=== PATIENT | male | born 1985 | race American Indian/Alaskan Native ===

== ENCOUNTER 2018-09-11 17:40 | Inpatient (IN) | payer BC ==
[2018-09-11] MEDS ORDERED: NACL 0.9% 1000 ML IV ONE (18:06)
[2018-09-11] MEDS ORDERED: ZOSYN/NS 3.375GM/50ML 3.375 GM/50 ML BAG IV ONE (18:07)
[2018-09-11] MEDS ORDERED: NACL 0.9% 1000 ML 2,000 ML ONE (18:08)
[2018-09-11] MEDS ORDERED: ZOFRAN IV ONE (18:08)
--- NOTE | 2018-09-11 18:11 | Emergency Department Report ---
ED General Adult HPI - General Chief complaint: Nausea/Vomiting/Diarrhea Stated complaint: FLU LIKE Time Seen by Provider: 09/11/18 18:01 Source: patient Mode of arrival: Wheelchair Limitations: No Limitations - History of Present Illness Initial comments: Patient is 33 years old male with no significant past medical history. Patient presented to the ER complaining of a five-day history of nausea, vomiting and watery diarrhea. Patient found to have a blood pressure of 84/54 in triage with a heart rate of 136. Sepsis protocol initiated. Patient stated that he has been having cough, nonproductive. Patient denied any abdominal pain or fever. - Related Data Allergies Allergy/AdvReac Type Severity Reaction Status Date / Time No Known Allergies Allergy Unverified 09/11/18 17:50 ED Review of Systems ROS: Stated complaint: FLU LIKE Other details as noted in HPI Comment: All other systems reviewed and negative Constitutional: denies: chills, fever Respiratory: cough. denies: orthopnea, shortness of breath, SOB with exertion, SOB at rest Cardiovascular: palpitations. denies: chest pain, dyspnea on exertion, orthopnea Gastrointestinal: nausea, vomiting, diarrhea. denies: abdominal pain, constipation, hematemesis, melena, hematochezia Musculoskeletal: denies: back pain Neurological: weakness (generalized). denies: headache, numbness, paresthesias, confusion, abnormal gait, vertigo ED Past Medical Hx - Past Medical History Previous Medical History?: No - Surgical History Past Surgical History?: No - Social History Smoking Status: Never Smoker Substance Use Type: None ED Physical Exam - General Limitations: No Limitations General appearance: alert, in no apparent distress - Head Head exam: Present: atraumatic, normocephalic, normal inspection - Eye Eye exam: Present: normal appearance - ENT ENT exam: Present: mucous membranes dry - Neck Neck exam: Present: normal inspection, full ROM. Absent: tenderness, meningismus, lymphadenopathy, thyromegaly - Respiratory Respiratory exam: Present: normal lung sounds bilaterally. Absent: respiratory distress, wheezes, rales, rhonchi, stridor, chest wall tenderness, accessory muscle use, decreased breath sounds, prolonged expiratory - Cardiovascular Cardiovascular Exam: Present: tachycardia - GI/Abdominal GI/Abdominal exam: Present: soft, normal bowel sounds. Absent: distended, ten derness, guarding, rebound, rigid, diminished bowel sounds, organomegaly, mass, bruit, pulsatile mass, hernia - Extremities Exam Extremities exam: Present: normal inspection, full ROM, normal capillary refill. Absent: pedal edema, calf tenderness - Back Exam Back exam: Present: normal inspection, full ROM. Absent: tenderness, CVA tenderness (R), CVA tenderness (L), muscle spasm, paraspinal tenderness, vertebral tenderness - Neurological Exam Neurological exam: Present: alert, oriented X3, CN II-XII intact, normal gait, reflexes normal - Skin Skin exam: Present: warm, intact, normal color ED Course Vital Signs 09/11/18 09/11/18 09/11/18 17:47 18:30 19:00 Temperature 98.5 F Pulse Rate 136 H 126 H 120 H Respiratory 18 30 H Rate Blood Pressure 89/54 110/53 100/57 O2 Sat by Pulse 99 96 94 Oximetry 09/11/18 19:03 Temperature Pulse Rate Respiratory 16 Rate Blood Pressure O2 Sat by Pulse Oximetry ED Medical Decision Making - Lab Data Result diagrams: 09/11/18 18:00 09/11/18 18:00 - Medical Decision Making Patient is 33 years old male with no significant past medical history. Patient presented to the ER complaining of a five-day history of nausea, vomiting and watery diarrhea. Patient found to have a blood pressure of 84/54 in triage with a heart rate of 136. Sepsis protocol initiated. Patient stated that he has been having cough, nonproductive. Patient denied any abdominal pain or fever. Patient received normal saline, Zosyn, Zofran. Patient found to have a white blood cells also 1.9 and a lactic acid of 2.6. I discussed the patient is Dr. Oconnell, he agreed to admit the patient to medical service. Critical Care Time: Yes Critical care time in (mins) excluding proc time.: 30 Critical care attestation.: If time is entered above; I have spent that time in minutes in the direct care of this critically ill patient, excluding procedure time. ED Disposition Clinical Impression: Sepsis, Dehydration, Nausea vomiting and diarrhea, Leukopenia Disposition: OP ADMIT IP TO THIS HOSP Is pt being admited?: Yes Condition: Stable
[2018-09-11 18:25] LABS: Hematocrit 41.2 % (35.5-45.6); Hemoglobin 13.6 gm/dl (11.8-15.2); Mean Corpuscular HGB Conc 33 % (32-34); Mean Corpuscular Volume 86 fl (84-94); Platelet Count 130 K/mm3 (140-440); Red Blood Count 4.79 M/mm3 (3.65-5.03); Red Cell Distribution Width 13.4 % (13.2-15.2)
[2018-09-11 18:41] LABS: Alanine Aminotransferase 115 units/L (7-56); BUN/Creatinine Ratio 23; Blood Urea Nitrogen 21 mg/dL (9-20); Calcium 8.1 mg/dL (8.4-10.2); Hemolysis Index 30
--- NOTE | 2018-09-11 19:02 | History and Physical Report ---
History of Present Illness Chief complaint: I feel sick, I keep throwing up History of present illness: 33 YO Male with no PMH present to ED for evaluation. Pt states that he has experienced nausea, multiple episodes of vomiting, and multiple episodes of loose stools over the past 5 days with persistent symptoms over the same time frame. Pt acknowledges nearly 100lbs weight loss over the past 6 months. Pt transported to [facility] by his family for further care and evaluation. Pt seen and evaluated in ED and found to have Sepsis with a blood pressure of 84/54, Acidosis, and intractible nausea and vomiting. Pt admitted to Medical floor and initiated on sepsis protocol. Pt denies fever, chills, CP, Palpitations, Trauma, BRBPR, Headache, vision changes, skin rash, or recent known ill contacts. Past History Past Medical History: No medical history, other (reviewed) Past Surgical History: No surgical history, Other (reviewed) Social history: single, lives with family. denies: smoking, alcohol abuse, prescription drug abuse Family history: no significant family history (reviewed) Medications and Allergies Allergies Allergy/AdvReac Type Severity Reaction Status Date / Time No Known Allergies Allergy Unverified 09/11/18 17:50 Review of Systems Constitutional: weight loss, anorexia, no weight gain, no fever, no chills Ears, nose, mouth and throat: no ear pain, no ear discharge, no tinnitis, no decreased hearing, no nose pain Cardiovascular: no chest pain, no orthopnea, no palpitations, no rapid/irregular heart beat, no edema Respiratory: cough, no cough with sputum, no excessive sputum Gastrointestinal: nausea, vomiting, diarrhea, no constipation, no change in bowel habits, no BRBPR, no melena, no hematochezia Genitourinary Male: no hematuria, no flank pain, no discharge, no urinary frequency, no urinary hesitancy Rectal: no pain, no incontinence, no bleeding Musculoskeletal: no neck stiffness, no neck pain, no shooting arm pain, no arm numbness/tingling, no low back pain Integumentary: no rash, no pruritis, no redness, no sores, no wounds Neurological: no transient paralysis, no paralysis, no weakness, no parathesias, no numbness, no tingling Psychiatric: no anxiety, no memory loss, no change in sleep habits, no sleep disturbances, no insomnia, no hypersomnia Endocrine: no cold intolerance, no heat intolerance, no excessive thirst, no polydipsia, no polyuria, no nocturia Hematologic/Lymphatic: no easy bruising, no lymphadenopathy, no lymphedema Allergic/Immunologic: no urticaria, no allergic rhinitis, no wheezing, no persistent infections, no anaphylaxis, no angioedema Exam - Constitutional Vitals: Temp Pulse Resp BP Pulse Ox 98.5 F 120 H 30 H 100/57 94 09/11/18 17:47 09/11/18 19:00 09/11/18 19:00 09/11/18 19:00 09/11/18 19:00 General appearance: Present: mild distress, cachectic, disheveled - EENT Eyes: Present: PERRL ENT: hearing intact, clear oral mucosa - Neck Neck: Present: supple, normal ROM - Respiratory Respiratory effort: normal Respiratory: bilateral: CTA - Cardiovascular Heart Sounds: Present: S1 & S2. Absent: rub, click - Extremities Extremities: pulses symmetrical, No edema Peripheral Pulses: abnormal (capillary refill greater than 3.5 seconds) - Abdominal General gastrointestinal: Present: soft, non-tender, non-distended, normal bowel sounds Male genitourinary: Present: normal - Integumentary Integumentary: Present: clear, warm, dry - Musculoskeletal Musculoskeletal: gait normal, strength equal bilaterally - Psychiatric Psychiatric: appropriate mood/affect, intact judgment & insight - Neurologic Neurologic: CNII-XII intact, moves all extremities Results - Labs CBC & Chem 7: 09/11/18 18:00 09/11/18 18:00 Labs: Abnormal lab results 09/11/18 09/11/18 09/11/18 Range/Units 18:00 18:00 18:00 WBC 1.9 L* (4.5-11.0) K/mm3 Plt Count 130 L (140-440) K/mm3 Sodium 131 L (137-145) mmol/L Carbon Dioxide 17 L (22-30) mmol/L BUN 21 H (9-20) mg/dL Glucose 126 H (75-100) mg/dL Lactic Acid 2.60 H* (0.7-2.0) mmol/L Calcium 8.1 L (8.4-10.2) mg/dL AST 123 H (5-40) units/L ALT 115 H (7-56) units/L Albumin 3.0 L (3.9-5) g/dL Assessment and Plan - Patient Problems (1) Sepsis Status: Acute Qualifiers: Sepsis type: sepsis due to unspecified organism Qualified Code(s): A41.9 - Sepsis, unspecified organism Plan to address problem: Sepsis Protocol: IV antibiotic therapy, IVF resuscitation therapy, CBC, CMP, chest x ray, CT Abdomen pelvis, stool studies, Rapid HIV, serial lactic acid, monitor uop q shift, neutropenic precautions. (2) Acidosis Status: Acute Plan to address problem: IVF resuscitation therapy, IV bicarbonate, serial lactic acid level. (3) Nausea vomiting and diarrhea Status: Acute Plan to address problem: Antiemetic therpay, IVF resuscitation therapy, supportive care. (4) DVT prophylaxis Status: Acute Plan to address problem: SCD to BLE while in bed.
--- NOTE | 2018-09-11 19:09 | XRay Report ---
FINAL REPORT PROCEDURE: Chest. TECHNIQUE: Portable AP view. HISTORY: Sepsis. COMPARISON: No prior studies are available for comparison. FINDINGS: The heart and mediastinum appear normal. The left lung is clear and well expanded. There may be some faint opacity in the right upper lobe. This could represent early pneumonia. Follow-up imaging is sug gested. There are no pleural effusions. The soft tissues and regional skeleton are unremarkable. IMPRESSION: Question early right upper lobe pneumonia.
[2018-09-11 19:30] LABS: Band Neutrophils # (Manual) 0.1 K/mm3; Basophils % (Manual) 0 % (0.0-1.8); Total Cells Counted 100
[2018-09-11] MEDS ORDERED: ZOFRAN IV PRN (19:30)
[2018-09-11 19:35] LABS: Ovalocytes 1+; Platelet Estimate Consistent w Auto
[2018-09-11 20:08] LABS: Bilirubin,Urine NEG (Negative); Blood,Urine SM (Negative); Color,Urine Amber (Yellow); Mucus,Urine FEW /HPF; Protein,Urine <15 mg/dL mg/dL (Negative); Urobilinogen,Urine < 2.0 mg/dL (<2.0)
[2018-09-11] MEDS: SODIUM CHLORIDE FLUSH SYRINGE 10 ML IV SCH (23:26)
[2018-09-11] MEDS: TYLENOL PO PRN (23:26)
[2018-09-11] MEDS: FLAGYL 500 MG/100 ML 500 MG/100 ML BAG IV SCH (23:26)
[2018-09-11] MEDS: ZOSYN/NS 4.5GM/100ML 4.5 GM/100 ML VIAL IV SCH (23:31)
--- NOTE | 2018-09-12 01:50 | Cat Scan Report ---
FINAL REPORT EXAM: CT HEAD/BRAIN WO CON HISTORY: AMS fever TECHNIQUE: CT was performed from the foramen magnum through the vertex in the axial plane without th e use of intravenous contrast. PRIORS: None. FINDINGS: The roger/white matter attenuation pattern is normal. There is no mass lesion or mass effect. There ar e no abnormal extra-axial fluid collections. There is no evidence of acute intracranial hemorrhage or infarct. The ventricles are of normal size and configuration. The skull and orbits are unremarkable . There is mucosal thickening in the bilateral sphenoid sinuses. IMPRESSION: Normal CT of the head. Chronic sphenoid sinus disease
[2018-09-12] MEDS: TYLENOL PO PRN (03:57)
[2018-09-12] MEDS: ZOSYN/NS 4.5GM/100ML 4.5 GM/100 ML VIAL IV SCH ×3 (05:30→23:18)
[2018-09-12] MEDS: FLAGYL 500 MG/100 ML 500 MG/100 ML BAG IV SCH ×3 (06:10→23:21)
--- NOTE | 2018-09-12 09:33 | Progress Note ---
Assessment and Plan Assessment and plan: Sepsis. Present on admission. Patient is criteria given the leukopenia, tachycardia and diagnosis of gastroenteritis. Follow-up blood and stool studies. Continue IV antibiotics. Gastroenteritis. Follow-up stool studies and CT scan of the abdomen and pelvis--check for colitis. Continue Zosyn and Flagyl. Leukopenia. Consider hematology consultation. Diarrhea. Stool studies for WBC, culture and C. difficile History Interval history: No new issues overnight. Hospitalist Physical - Constitutional Vitals: Temp Pulse Resp BP Pulse Ox 98.6 F 111 H 18 96/36 100 09/12/18 06:12 09/12/18 06:12 09/12/18 06:12 09/12/18 06:12 09/12/18 08:30 General appearance: Present: no acute distress, cachectic, disheveled - EENT Eyes: Present: PERRL, EOM intact ENT: hearing intact, clear oral mucosa, dentition normal - Neck Neck: Present: supple, normal ROM - Respiratory Respiratory effort: normal Respiratory: bilateral: CTA - Cardiovascular Rhythm: regular Heart Sounds: Present: S1 & S2. Absent: gallop, rub - Extremities Extremities: no ischemia, No edema, Full ROM - Abdominal General gastrointestinal: soft, non-tender, non-distended, normal bowel sounds - Integumentary Integumentary: Present: clear, warm, dry - Neurologic Neurologic: CNII-XII intact, moves all extremities Results - Labs CBC & Chem 7: 09/11/18 18:00 09/11/18 18:00 Labs: Laboratory Last Values WBC 1.9 K/mm3 (4.5-11.0) L* 09/11/18 18:00 RBC 4.79 M/mm3 (3.65-5.03) 09/11/18 18:00 Hgb 13.6 gm/dl (11.8-15.2) 09/11/18 18:00 Hct 41.2 % (35.5-45.6) 09/11/18 18:00 MCV 86 fl (84-94) 09/11/18 18:00 MCH 28 pg (28-32) 09/11/18 18:00 MCHC 33 % (32-34) 09/11/18 18:00 RDW 13.4 % (13.2-15.2) 09/11/18 18:00 Plt Count 130 K/mm3 (140-440) L 09/11/18 18:00 [place] % (Auto) Nanoelectronics Engineer 09/11/18 18:00 Add Manual Diff Complete 09/11/18 18:00 Total Counted 100 09/11/18 18:00 Seg Neuts % (Manual) 49.0 % (40.0-70.0) 09/11/18 18:00 Band Neutrophils % 7.0 % 09/11/18 18:00 Lymphocytes % (Manual) 25.0 % (13.4-35.0) 09/11/18 18:00 Reactive Lymphs % (Man) 1.0 % 09/11/18 18:00 Monocytes % (Manual) 16.0 % (0.0-7.3) H 09/11/18 18:00 Eosinophils % (Manual) 2.0 % (0.0-4.3) 09/11/18 18:00 Basophils % (Manual) 0 % (0.0-1.8) 09/11/18 18:00 Metamyelocytes % 0 % 09/11/18 18:00 Myelocytes % 0 % 09/11/18 18:00 Promyelocytes % 0 % 09/11/18 18:00 Blast Cells % 0 % 09/11/18 18:00 Nucleated RBC % Not Reportable 09/11/18 18:00 Seg Neutrophils # Man 0.9 K/mm3 (1.8-7.7) L 09/11/18 18:00 Band Neutrophils # 0.1 K/mm3 09/11/18 18:00 Lymphocytes # (Manual) 0.5 K/mm3 (1.2-5.4) L 09/11/18 18:00 Abs React Lymphs (Man) 0.0 K/mm3 09/11/18 18:00 Monocytes # (Manual) 0.3 K/mm3 (0.0-0.8) 09/11/18 18:00 Eosinophils # (Manual) 0.0 K/mm3 (0.0-0.4) 09/11/18 18:00 Basophils # (Manual) 0.0 K/mm3 (0.0-0.1) 09/11/18 18:00 Metamyelocytes # 0.0 K/mm3 09/11/18 18:00 Myelocytes # 0.0 K/mm3 09/11/18 18:00 Promyelocytes # 0.0 K/mm3 09/11/18 18:00 Blast Cells # 0.0 K/mm3 09/11/18 18:00 WBC Morphology Not Reportable 09/11/18 18:00 Hypersegmented Neuts Not Reportable 09/11/18 18:00 Hyposegmented Neuts Not Reportable 09/11/18 18:00 Hypogranular Neuts Not Reportable 09/11/18 18:00 Smudge Cells Not Reportable 09/11/18 18:00 Toxic Granulation Not Reportable 09/11/18 18:00 Toxic Vacuolation Not Reportable 09/11/18 18:00 Dohle Bodies Not Reportable 09/11/18 18:00 Pelger-Huet Anomaly Not Reportable 09/11/18 18:00 Giovanna Rods Not Reportable 09/11/18 18:00 Platelet Estimate Consistent w auto 09/11/18 18:00 Clumped Platelets Not Reportable 09/11/18 18:00 Plt Clumps, EDTA Not Reportable 09/11/18 18:00 Large Platelets Not Reportable 09/11/18 18:00 Giant Platelets Not Reportable 09/11/18 18:00 Platelet Satelliting Not Reportable 09/11/18 18:00 Plt Morphology Comment Not Reportable 09/11/18 18:00 RBC Morphology Not Reportable 09/11/18 18:00 Dimorphic RBCs Not Reportable 09/11/18 18:00 Polychromasia Not Reportable 09/11/18 18:00 Hypochromasia Not Reportable 09/11/18 18:00 Poikilocytosis Not Reportable 09/11/18 18:00 Anisocytosis Not Reportable 09/11/18 18:00 Microcytosis Not Reportable 09/11/18 18:00 Macrocytosis Not Reportable 09/11/18 18:00 Spherocytes Not Reportable 09/11/18 18:00 Pappenheimer Bodies Not Reportable 09/11/18 18:00 Sickle Cells Not Reportable 09/11/18 18:00 Target Cells Not Reportable 09/11/18 18:00 Tear Drop Cells Not Reportable 09/11/18 18:00 Ovalocytes 1+ 09/11/18 18:00 Helmet Cells Not Reportable 09/11/18 18:00 P[place] Bodies Not Reportable 09/11/18 18:00 [place] Rings Not Reportable 09/11/18 18:00 Dioni Cells Not Reportable 09/11/18 18:00 Bite Cells Not Reportable 09/11/18 18:00 Crenated Cell Not Reportable 09/11/18 18:00 Elliptocytes Not Reportable 09/11/18 18:00 Acanthocytes (Spur) Not Reportable 09/11/18 18:00 Rouleaux Not Reportable 09/11/18 18:00 Hemoglobin C Crystals Not Reportable 09/11/18 18:00 Schistocytes Not Reportable 09/11/18 18:00 Malaria parasites Not Reportable 09/11/18 18:00 Kieran Bodies Not Reportable 09/11/18 18:00 Hem Pathologist Commnt No 09/11/18 18:00 Sodium 131 mmol/L (137-145) L 09/11/18 18:00 Potassium 4.5 mmol/L (3.6-5.0) 09/11/18 18:00 Chloride 99.9 mmol/L (98-107) 09/11/18 18:00 Carbon Dioxide 17 mmol/L (22-30) L 09/11/18 18:00 Anion Gap 19 mmol/L 09/11/18 18:00 BUN 21 mg/dL (9-20) H 09/11/18 18:00 Creatinine 0.9 mg/dL (0.8-1.5) 09/11/18 18:00 Estimated GFR > 60 ml/min 09/11/18 18:00 BUN/Creatinine Ratio 23 % 09/11/18 18:00 Glucose 126 mg/dL (75-100) H 09/11/18 18:00 Lactic Acid 0.90 mmol/L (0.7-2.0) 09/11/18 20:17 Calcium 8.1 mg/dL (8.4-10.2) L 09/11/18 18:00 Total Bilirubin 0.90 mg/dL (0.1-1.2) 09/11/18 18:00 AST 123 units/L (5-40) H 09/11/18 18:00 ALT 115 units/L (7-56) H 09/11/18 18:00 Alkaline Phosphatase 70 units/L (35-129) 09/11/18 18:00 Total Protein 7.6 g/dL (6.3-8.2) 09/11/18 18:00 Albumin 3.0 g/dL (3.9-5) L 09/11/18 18:00 Albumin/Globulin Ratio 0.7 % 09/11/18 18:00 Urine Color [place] (Yellow) 09/11/18 Unknown Urine Turbidity Clear (Clear) 09/11/18 Unknown Urine pH 5.0 (5.0-7.0) 09/11/18 Unknown Ur Specific [place] 1.016 (1.003-1.030) 09/11/18 Unknown Urine Protein <15 mg/dl mg/dL (Negative) 09/11/18 Unknown Urine Glucose (UA) Neg mg/dL (Negative) 09/11/18 Unknown Urine Ketones Neg mg/dL (Negative) 09/11/18 Unknown Urine Blood Sm (Negative) 09/11/18 Unknown Urine Nitrite Neg (Negative) 09/11/18 Unknown Urine Bilirubin Neg (Negative) 09/11/18 Unknown Urine Urobilinogen < 2.0 mg/dL (<2.0) 09/11/18 Unknown Ur Leukocyte Esterase Neg (Negative) 09/11/18 Unknown Urine WBC (Auto) 1.0 /HPF (0.0-6.0) 09/11/18 Unknown Urine RBC (Auto) 3.0 /HPF (0.0-6.0) 09/11/18 Unknown Urine Mucus Few /HPF 09/11/18 Unknown HIV 1&2 Antibody Rapid Reactive (Non React) 09/11/18 19:14 HIV P24 Antigen Non react (Non React) 09/11/18 19:14
[2018-09-12] MEDS: SODIUM CHLORIDE FLUSH SYRINGE 10 ML IV SCH ×2 (10:00→22:40)
[2018-09-12] MEDS: NACL 0.9% 1000 ML 1,000 ML IV SCH (13:16)
--- NOTE | 2018-09-12 21:44 | Cat Scan Report ---
FINAL REPORT EXAM: CT ABDOMEN PELVIS W CON HISTORY: abdominal pain TECHNIQUE: Dynamic helical CT scan through the abdomen and pelvis after ingestion of oral contrast a nd during and again after intravenous injection of iodinated contrast. Images are reconstructed in th e sagittal and coronal planes. PRIORS: None. FINDINGS: Images through the lung bases show small bibasilar patchy infiltrates. The uncinate process of the pancreas appears enlarged measuring 5.2 x 3.5 x 6.8 cm. The pancreas is o bscured by spray artifact from bowel gas and oral contrast. There is no peripancreatic inflammatory c hange. The liver, gallbladder, spleen and adrenal glands appear normal. The kidneys appear normal. The pelvic organs appear grossly normal. The stomach appears grossly within normal limits. There are no abnormally dilated loops of bowel or acute inflammatory changes. Oral contrast progresse d to the rectum. A normal-appearing appendix is identified. The abdominal aorta has a normal diameter. The bones and subcutaneous soft tissues are unremarkable for age. IMPRESSION: 1. Small bibasilar patchy infiltrates consistent with pneumonia 2. Enlarged uncinate process of the pancreas incompletely evaluated. This may be due to mass, inflamm ation or volume averaging of adjacent structures. Further evaluation with ultrasound is recommended. 3. Otherwise, no acute findings in the abdomen/pelvis
[2018-09-13] MEDS: ZOSYN/NS 4.5GM/100ML 4.5 GM/100 ML VIAL IV SCH (05:00)
[2018-09-13] MEDS: NACL 0.9% 1000 ML 1,000 ML IV SCH ×2 (05:00→23:58)
[2018-09-13] MEDS: FLAGYL 500 MG/100 ML 500 MG/100 ML BAG IV SCH (05:44)
[2018-09-13 05:48] LABS: Hematocrit 37.3 % (35.5-45.6); Hemoglobin 12.3 gm/dl (11.8-15.2); Mean Corpuscular HGB Conc 33 % (32-34); Mean Corpuscular Volume 86 fl (84-94); Platelet Count 116 K/mm3 (140-440); Red Blood Count 4.34 M/mm3 (3.65-5.03); Red Cell Distribution Width 13.6 % (13.2-15.2)
[2018-09-13 07:31] LABS: Band Neutrophils # (Manual) 0.4 K/mm3; Basophils % (Manual) 0 % (0.0-1.8); Eosinophils % (Manual) 0 % (0.0-4.3); Total Cells Counted 50
[2018-09-13 07:32] LABS: Anisocytosis 1+
[2018-09-13 07:33] LABS: Ovalocytes 1+; Platelet Estimate Consistent w Auto
[2018-09-13 07:59] LABS: BUN/Creatinine Ratio 14; Blood Urea Nitrogen 13 mg/dL (9-20); Calcium 7.9 mg/dL (8.4-10.2); Hemolysis Index 25
[2018-09-13 08:39] LABS: Alanine Aminotransferase 68 units/L (7-56); Albumin 2.5 g/dL (3.9-5)
[2018-09-13 08:44] LABS: Bilirubin,Direct < 0.2 mg/dL (0-0.2)
--- NOTE | 2018-09-13 10:02 | Progress Note ---
Assessment and Plan Assessment and plan: Sepsis. Present on admission. Patient is criteria given the leukopenia, tachycardia and diagnosis of gastroenteritis. Follow-up blood and stool studies. Continue IV antibiotics. HIV positive. New diagnosis. i informed him of results and discussed with him. he states he has a male partner with whom he has unprotected anal sex. consult ID Physician Pneumonia Continue iv Abx. Severe weight loss. May be due to HIV Pancreatic lesion. Consult GI Physician. Gastroenteritis. Follow-up stool studies. Continue Zosyn and Flagyl. Leukopenia. Consider hematology consultation. Diarrhea. Stool studies for WBC, culture and C. difficile History Interval history: Severe weight loss Diarrhea Nausea, vomiting fever Hospitalist Physical - Physical exam Narrative exam: GEN: Not in acute distress, lying in bed HEENT: Normocephalic, atraumatic, Neck: supple, No JVD Lungs: Clear to auscultation bilaterally, no wheeze Heart:S1 and S2 regular, no murmurs, rubs or gallop, Abd:soft, non tender, non distended, normal bowel sounds Ext: No edema, no clubbing or cyanosis Neuro: Awake,alert, oriented x 3, No focal signs - Constitutional Vitals: Temp Pulse Resp BP Pulse Ox 99.4 F 101 H 28 H 94/49 95 09/12/18 23:41 09/12/18 23:41 09/12/18 23:41 09/12/18 23:41 09/13/18 08:47 General appearance: Present: no acute distress, cachectic, disheveled Results - Labs CBC & Chem 7: 09/13/18 04:28 09/13/18 07:31 Labs: Laboratory Last Values WBC 2.0 K/mm3 (4.5-11.0) L 09/13/18 04:28 RBC 4.34 M/mm3 (3.65-5.03) 09/13/18 04:28 Hgb 12.3 gm/dl (11.8-15.2) 09/13/18 04:28 Hct 37.3 % (35.5-45.6) 09/13/18 04:28 MCV 86 fl (84-94) 09/13/18 04:28 MCH 28 pg (28-32) 09/13/18 04:28 MCHC 33 % (32-34) 09/13/18 04:28 RDW 13.6 % (13.2-15.2) 09/13/18 04:28 Plt Count 116 K/mm3 (140-440) L 09/13/18 04:28 [place] % (Auto) Line Service Person 09/11/18 18:00 Add Manual Diff Complete 09/13/18 04:28 Total Counted 50 09/13/18 04:28 Seg Neuts % (Manual) 50.0 % (40.0-70.0) 09/13/18 04:28 Band Neutrophils % 18.0 % 09/13/18 04:28 Lymphocytes % (Manual) 24.0 % (13.4-35.0) 09/13/18 04:28 Reactive Lymphs % (Man) 0 % 09/13/18 04:28 Monocytes % (Manual) 8.0 % (0.0-7.3) H 09/13/18 04:28 Eosinophils % (Manual) 0 % (0.0-4.3) 09/13/18 04:28 Basophils % (Manual) 0 % (0.0-1.8) 09/13/18 04:28 Metamyelocytes % 0 % 09/13/18 04:28 Myelocytes % 0 % 09/13/18 04:28 Promyelocytes % 0 % 09/13/18 04:28 Blast Cells % 0 % 09/13/18 04:28 Nucleated RBC % Not Reportable 09/13/18 04:28 Seg Neutrophils # Man 1.0 K/mm3 (1.8-7.7) L 09/13/18 04:28 Band Neutrophils # 0.4 K/mm3 09/13/18 04:28 Lymphocytes # (Manual) 0.5 K/mm3 (1.2-5.4) L 09/13/18 04:28 Abs React Lymphs (Man) 0.0 K/mm3 09/13/18 04:28 Monocytes # (Manual) 0.2 K/mm3 (0.0-0.8) 09/13/18 04:28 Eosinophils # (Manual) 0.0 K/mm3 (0.0-0.4) 09/13/18 04:28 Basophils # (Manual) 0.0 K/mm3 (0.0-0.1) 09/13/18 04:28 Metamyelocytes # 0.0 K/mm3 09/13/18 04:28 Myelocytes # 0.0 K/mm3 09/13/18 04:28 Promyelocytes # 0.0 K/mm3 09/13/18 04:28 Blast Cells # 0.0 K/mm3 09/13/18 04:28 WBC Morphology Not Reportable 09/13/18 04:28 Hypersegmented Neuts Not Reportable 09/13/18 04:28 Hyposegmented Neuts Not Reportable 09/13/18 04:28 Hypogranular Neuts Not Reportable 09/13/18 04:28 Smudge Cells Not Reportable 09/13/18 04:28 Toxic Granulation Not Reportable 09/13/18 04:28 Toxic Vacuolation Not Reportable 09/13/18 04:28 Dohle Bodies Not Reportable 09/13/18 04:28 Pelger-Huet Anomaly Not Reportable 09/13/18 04:28 Giovanna Rods Not Reportable 09/13/18 04:28 Platelet Estimate Consistent w auto 09/13/18 04:28 Clumped Platelets Not Reportable 09/13/18 04:28 Plt Clumps, EDTA Not Reportable 09/13/18 04:28 Large Platelets Not Reportable 09/13/18 04:28 Giant Platelets Not Reportable 09/13/18 04:28 Platelet Satelliting Not Reportable 09/13/18 04:28 Plt Morphology Comment Not Reportable 09/13/18 04:28 RBC Morphology Not Reportable 09/13/18 04:28 Dimorphic RBCs Not Reportable 09/13/18 04:28 Polychromasia Not Reportable 09/13/18 04:28 Hypochromasia Not Reportable 09/13/18 04:28 Poikilocytosis Not Reportable 09/13/18 04:28 Anisocytosis 1+ 09/13/18 04:28 Microcytosis Rare 09/13/18 04:28 Macrocytosis Not Reportable 09/13/18 04:28 Spherocytes Not Reportable 09/13/18 04:28 Pappenheimer Bodies Not Reportable 09/13/18 04:28 Sickle Cells Not Reportable 09/13/18 04:28 Target Cells Not Reportable 09/13/18 04:28 Tear Drop Cells Not Reportable 09/13/18 04:28 Ovalocytes 1+ 09/13/18 04:28 Helmet Cells Not Reportable 09/13/18 04:28 [place] Bodies Not Reportable 09/13/18 04:28 [place] Rings Not Reportable 09/13/18 04:28 [place] Cells Not Reportable 09/13/18 04:28 Bite Cells Not Reportable 09/13/18 04:28 Crenated Cell Not Reportable 09/13/18 04:28 Elliptocytes Few 09/13/18 04:28 Acanthocytes (Spur) Not Reportable 09/13/18 04:28 Rouleaux Not Reportable 09/13/18 04:28 Hemoglobin C Crystals Not Reportable 09/13/18 04:28 Schistocytes Not Reportable 09/13/18 04:28 Malaria parasites Not Reportable 09/13/18 04:28 Kieran Bodies Not Reportable 09/13/18 04:28 Hem Pathologist Commnt No 09/13/18 04:28 Sodium 142 mmol/L (137-145) D 09/13/18 07:31 Potassium 3.8 mmol/L (3.6-5.0) 09/13/18 07:31 Chloride 110.4 mmol/L (98-107) H 09/13/18 07:31 Carbon Dioxide 19 mmol/L (22-30) L 09/13/18 07:31 Anion Gap 16 mmol/L 09/13/18 07:31 BUN 13 mg/dL (9-20) 09/13/18 07:31 Creatinine 0.9 mg/dL (0.8-1.5) 09/13/18 07:31 Estimated GFR > 60 ml/min 09/13/18 07:31 BUN/Creatinine Ratio 14 % 09/13/18 07:31 Glucose 97 mg/dL (75-100) 09/13/18 07:31 Lactic Acid 0.90 mmol/L (0.7-2.0) 09/11/18 20:17 Calcium 7.9 mg/dL (8.4-10.2) L 09/13/18 07:31 Total Bilirubin 0.40 mg/dL (0.1-1.2) 09/13/18 07:31 Direct Bilirubin < 0.2 mg/dL (0-0.2) 09/13/18 07:31 AST 70 units/L (5-40) H 09/13/18 07:31 ALT 68 units/L (7-56) H 09/13/18 07:31 Alkaline Phosphatase 55 units/L (35-129) 09/13/18 07:31 Total Protein 6.5 g/dL (6.3-8.2) 09/13/18 07:31 Albumin 2.5 g/dL (3.9-5) L 09/13/18 07:31 Albumin/Globulin Ratio 0.6 % 09/13/18 07:31 Urine Color [place] (Yellow) 09/11/18 Unknown Urine Turbidity Clear (Clear) 09/11/18 Unknown Urine pH 5.0 (5.0-7.0) 09/11/18 Unknown Ur Specific [place] 1.016 (1.003-1.030) 09/11/18 Unknown Urine Protein <15 mg/dl mg/dL (Negative) 09/11/18 Unknown Urine Glucose (UA) Neg mg/dL (Negative) 09/11/18 Unknown Urine Ketones Neg mg/dL (Negative) 09/11/18 Unknown Urine Blood Sm (Negative) 09/11/18 Unknown Urine Nitrite Neg (Negative) 09/11/18 Unknown Urine Bilirubin Neg (Negative) 09/11/18 Unknown Urine Urobilinogen < 2.0 mg/dL (<2.0) 09/11/18 Unknown Ur Leukocyte Esterase Neg (Negative) 09/11/18 Unknown Urine WBC (Auto) 1.0 /HPF (0.0-6.0) 09/11/18 Unknown Urine RBC (Auto) 3.0 /HPF (0.0-6.0) 09/11/18 Unknown Urine Mucus Few /HPF 09/11/18 Unknown HIV 1&2 Antibody Rapid Reactive (Non React) 09/11/18 19:14 HIV P24 Antigen Non react (Non React) 09/11/18 19:14 Nutrition/Malnutrition Assess - Dietary Evaluation Nutrition/Malnutrition Findings: Nutrition Notes Start: 09/12/18 17:45 Freq: Status: Active Protocol: Document 09/12/18 17:45 OL (Rec: 09/12/18 17:49 OL [id number]) Nutrition Notes 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 Pt. reports UBW 280#, wt . loss has occurred in past 6 months. Pt. with N/V/D for 5 days. Burn Absent Trauma Absent Minimum of two criteria Yes Energy Intake (severe) < or equal to 50% Estimated Energy Requirement > or equal to 5 days Interpretation of Weight Loss (severe) >10% in 6 months #1 Nutrition Diagnosis Malnutrition Etiology N/V/D As Evidenced by Signs and Symptoms 23.5 % body wt. loss in 6 months, energy intake less than 50% for 5 days Is patient on ventilator? No Is Patient Ambulatory and/or Out of Bed No REE-([facility]-confined to bed) 1397.764 Calculation Used for Recommendations [facility] Additional Notes protein (1-1.2g/kg): 97-116 fluid: 1mL/kcal or per MD Nutrition Intervention Change Diet Order: Advance when medically feasible Goal #1 Diet advancement when medically feasible Anticipated Discharge Needs: Unable to determine at this time. Follow-Up By: 09/14/18 Additional Comments f/u: diet advancement
[2018-09-13] MEDS: SODIUM CHLORIDE FLUSH SYRINGE 10 ML IV SCH ×2 (10:40→21:56)
--- NOTE | 2018-09-13 11:13 | Consultation ---
History of Present Illness - Reason for Consult Consult date: 09/13/18 new diagnosed HIV Requesting physician: MONICA MESA - History of Present Illness 33 y/o male with no PMH; admitted on 09/11/2018 due to nausea, multiple episodes of vomiting and multiple episodes of loose stools over the past 5 days with persistent symptoms over the same time frame. Patient reports also yellowish- productive coughfor 3 days and progressive SOB. He reports 100lbs intentional we ight loss over the past 6 months. Diarrhea has been for 2 weeks on/off mainly when he drinks mild. Reports sore throat. 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 He did not use condom consistently. Reports tobacco use 1/2 ppd and occasional ETOH, denies drug use. He works in a [email or web address] company. In the ED, temp 98-102.4, HR 136, BP 89/54, O2 sat 99%. WBC 1.9. Hg 13.6. Plat 130. Lactate 2.6. Creat 0.9. AST 123. ALT 115. UA neg. HIV 1/2 antibody re active, p24 antigen negative. Blood culture 09/11/[address] abdomen showed small bibasilar patchy infiltrates consistent with pneumonia and enlarged uncinate process of the pancreas incompletely evaluated. This may be due to mass, inflammation or volume averaging of adjacent structures. Review of Systems: General: + fevers,+chills and +night sweats +weight loss HEENT: no new visual disturbance Respiratory: +cough, +yellow sputum, no hemoptysis Cardiovascular: no Pleuritic chest pain , no syncope Gastrointestinal: No nausea, vomiting or diarrhea +sore throat Genitourinary: No dysuria or hematuria Musculoskeletal: no edema Neurologic: No headaches, seizures Hematologic: No easy bruising or bleeding Endocrine: no night sweats, + weight loss Skin: negative for rash, jaundice Psychiatric: No suicidal or homicidal ideation Past History Past Medical History: No medical history, other (reviewed) Past Surgical History: No surgical history, Other (reviewed) Social history: single, lives with family. denies: smoking, alcohol abuse, prescription drug abuse Family history: no significant family history (reviewed) Medications and Allergies Allergies Allergy/AdvReac Type Severity Reaction Status Date / Time No Known Allergies Allergy Unverified 09/11/18 17:50 Active Meds: Active Medications Acetaminophen (Tylenol) 650 mg PO Q4H PRN PRN Reason: Pain MILD(1-3)/Fever >100.5/RIVERA Last Admin: 09/12/18 03:57 Dose: 650 mg Documented by: Albuterol (Proventil) 2.5 mg IH Q4HRT PRN PRN Reason: Shortness Of Breath Metronidazole (Flagyl 500 Mg/100 Ml) 500 mg in 100 mls @ 100 mls/hr IV Q8HR GIA; Protocol Last Admin: 09/13/18 05:44 Dose: 100 mls/hr Documented by: Piperacillin Sod/Tazobactam Sod (Zosyn/Ns 4.5gm/100ml) 4.5 gm in 100 mls @ 200 mls/hr IV Q8HR GIA; Protocol Last Admin: 09/13/18 05:00 Dose: 200 mls/hr Documented by: Sodium Chloride (Nacl 0.9% 1000 Ml) 1,000 mls @ 100 mls/hr IV DIRECT GIA Last Admin: 09/13/18 05:00 Dose: 100 mls/hr Documented by: Ondansetron HCl (Zofran) 4 mg IV Q8H PRN PRN Reason: Nausea And Vomiting Sodium Chloride (Sodium Chloride Flush Syringe 10 Ml) 10 ml IV BID GIA Last Admin: 09/13/18 10:40 Dose: 10 ml Documented by: Sodium Chloride (Sodium Chloride Flush Syringe 10 Ml) 10 ml IV PRN PRN PRN Reason: LINE FLUSH Physical Examination - Physical Exam Narrative exam: Constitutional: Alert, cooperative. No acute distress Head, Ears, Nose: Normocephalic, atraumatic. External ears, nose normal Eyes: Conjunctivae/corneas clear. No icterus. No ptosis. Neck:no JVD, left anterior neck large hard nodule non tender Oral: + thrush Cardiovascular: tachycardic Respiratory: Good air entry, clear to auscultation bilaterally GI: Soft, non-tender; bowel sounds normal. No peritoneal signs Musculoskeletal: No pedal edema, no cyanosis. Skin: No rash or abscess. Hem/Lymphatic: No palpable cervical or supraclavicular nodes. No lymphangitis Psych: Mood ok. Affect normal Neurological: Awake, alert, oriented. No gross abnormality. No weakness - Constitutional Vitals: Vital Signs Temp Pulse Resp BP Pulse Ox 99.4 F 101 H 28 H 94/49 95 09/12/18 23:41 09/12/18 23:41 09/12/18 23:41 09/12/18 23:41 09/13/18 08:47 Temperature -Last 24 Hours Temperature 99.4 F Temperature 99.8 F Temperature 98.5 F Results - Labs CBC & Chem 7: 09/13/18 04:28 09/13/18 07:31 Labs: Abnormal lab results 09/13/18 09/13/18 09/13/18 Range/Units 04:28 07:31 07:31 WBC 2.0 L (4.5-11.0) K/mm3 Plt Count 116 L (140-440) K/mm3 Monocytes % (Manual) 8.0 H (0.0-7.3) % Seg Neutrophils # Man 1.0 L (1.8-7.7) K/mm3 Lymphocytes # (Manual) 0.5 L (1.2-5.4) K/mm3 Chloride 110.4 H (98-107) mmol/L Carbon Dioxide 19 L (22-30) mmol/L Calcium 7.9 L (8.4-10.2) mg/dL AST 70 H (5-40) units/L ALT 68 H (7-56) units/L Albumin 2.5 L (3.9-5) g/dL Assessment and Plan Cultures: 09/11/2018 blood culture no growth A/P: 33 y/o male with no PMH; admitted on 09/11/2018 due to nausea, voimiting, diarrhea, weight loss and cough: Severe sepsis: present on admission with fever, tachycardia, hypotension and elevated lactate; etio. bilateral pneumonia +/- gastroenteritis in the setting of newly diagnosed HIV. Blood culture 09/11/2018 no growth. Bilateral pneumonia: likely PJP pneumonia in light of HIV infection, other posibilities-CAP, Influenza. CXR showed RUL pneumonia. CT abd showed bibasilar patchy infiltrates. Diarrhea: ? colitis in immunocompromised patient ?bacterial, parasite, viral Oral candidiasis Weight loss: likely from HIV/AIDS, should r/o malignancy HIV, newly diagninosed with presumed AIDS given oral candidiasis and presumed PJP pneumonia. 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 He did not use condom consistently. SOB/hypoxemia: from pneumonia Elevated LFTs: due to severe sepsis ? eval for viral hepatitis ? pancreatic mass. CT abdomen showed enlarged uncinate process of the pancreas incompletely evaluated. Neutropenia/thrombocytopenia: rom HIV myelosuppression, should r/o disseminated MAC Recs: stop zosyn and flagyl start ceftriaxone, azithromycin to cover CAP start bactrim IV to cover PJP start tamilfu until influenza is r/o start fluconazole for oral candidiasis obtain abdominal US check AFB-blood culture to r/o disseminated MAC check serum cryptococcal antigen check stool for O+P, Giardia and Cryptosporidium check CD4/VL/HIV-genotype check viral hepatitis panel, lipase, CMV DNA, RPR check influenza rapid antigen/PCR f/u blood cultures Alayna Strickland MD [facility] C: [phone] O: [phone] F: [phone]
[2018-09-13] MEDS ORDERED: ROCEPHIN/NS 2 GM/100 ML 2 GM/100 ML BAG IV SCH (12:00)
[2018-09-13] MEDS ORDERED: BACTRIM IV SCH (12:00)
[2018-09-13] MEDS ORDERED: D5W IV SCH (12:00)
--- NOTE | 2018-09-13 12:02 | Gastroenterology Consultation ---
Addendum entered and electronically signed by JESSICA SWEET MD 09/13/18 17:01: pt seen and examined, chart reviewed, consult below reviewed - pt newly diagnosed HIV and possible PCP now increase lFT's with ct suggestive possible pancreatic lesion - denies known h/o liver or pancreas disease vss p.e.: nad abd: soft - MRI - labs as outlined - ID input noted - other rec as outlined Original Note: History of Present Illness - Reason for Consult Consult date: 09/13/18 elevated LFTs/abnormal CT Requesting physician: MONICA MESA - History of Present Illness Patient is a 33 y/o male with no significant PMH who presented to ED with c/o multiple symptoms to include fever, N/V, intermittent loose stools, productive cough, sore throat and wt loss (100lbs over the past 6 months). Upon admission, he was found to have hypotension, tachycardia, elevated lactate, and WBC 1.9 with HIV 1/2 antibody reactive (new diagnosis) with sepsis protocol initiated. He underwent and abd CT that showed small bibasilar melvin infiltrates c/w pneumonia and enlarged uncinate process of the pancreas (mass vs inflammation vs volume averaging of adjacent structures?) to which GI has been consulted, along with elevated LFTs. This afternoon, patient was sitting up in bed w/o acute distress. Reports N/V and diarrhea now improved. No BM today. Denies abd pain, CP, SOB, signs of bleeding, or constipation. No hx or Fhx of liver disease. Drinks on average 2 shots of liquor per week. Tobacco use 1/2 PPD. He is MSM and had 2 yr relationship with a HIV positive partner. No IV drug use. Past History Past Medical History: No medical history, other (reviewed) Past Surgical History: No surgical history, Other (reviewed) Social history: single, lives with family, smoking, other (alcohol ). denies: prescription drug abuse Family history: no significant family history (reviewed) Medications and Allergies Allergies Allergy/AdvReac Type Severity Reaction Status Date / Time No Known Allergies Allergy Unverified 09/11/18 17:50 Active Meds: Active Medications Acetaminophen (Tylenol) 650 mg PO Q4H PRN PRN Reason: Pain MILD(1-3)/Fever >100.5/RIVERA Last Admin: 09/12/18 03:57 Dose: 650 mg Documented by: Albuterol (Proventil) 2.5 mg IH Q4HRT PRN PRN Reason: Shortness Of Breath Sodium Chloride (Nacl 0.9% 1000 Ml) 1,000 mls @ 100 mls/hr IV DIRECT [facility] Last Admin: 09/13/18 05:00 Dose: 100 mls/hr Documented by: Azithromycin 500 mg/ Sodium (Chloride) 250 mls @ 250 mls/hr IV Q24HR GIA Ceftriaxone Sodium (Rocephin/Ns 2 Gm/100 Ml) 2 gm in 100 mls @ 200 mls/hr IV Q24HR GIA; Protocol Trimethoprim/Sulfamethoxazole (1,455 mg/ Dextrose) 590.9375 mls @ 350 mls/hr IV Q6HR GIA; Protocol Fluconazole (Diflucan) 200 mls @ 100 mls/hr IV Q24HR GIA; Protocol Ondansetron HCl (Zofran) 4 mg IV Q8H PRN PRN Reason: Nausea And Vomiting Oseltamivir Phosphate (Tamiflu) 75 mg PO BID [facility] Stop: 09/17/18 22:01 Sodium Chloride (Sodium Chloride Flush Syringe 10 Ml) 10 ml IV BID [facility] Last Admin: 09/13/18 10:40 Dose: 10 ml Documented by: Sodium Chloride (Sodium Chloride Flush Syringe 10 Ml) 10 ml IV PRN PRN PRN Reason: LINE FLUSH medications reviewed/updated as required Review of Systems - Review of Systems All systems: negative Constitutional: weight loss, fever, chills Ears, Nose, Throat: other (sore throat) Respiratory: cough Gastrointestinal: nausea, vomiting, diarrhea Exam - Constitutional Vital Signs: Temp Pulse Resp BP Pulse Ox 99.4 F 101 H 28 H 94/49 95 09/12/18 23:41 09/12/18 23:41 09/12/18 23:41 09/12/18 23:41 09/13/18 08:47 General appearance: no acute distress, other (thin appearing) - EENT Eyes: PERRL, EOM intact ENT: hearing intact, thrush - Respiratory Respiratory: bilateral: CTA (anterior) - Cardiovascular Rhythm: other (tachycardia) - Gastrointestinal General gastrointestinal: Present: soft, non-tender, non-distended, normal bowel sounds - Neurologic Neurological: alert and oriented x3 - Labs CBC & Chem 7: 09/13/18 04:28 09/13/18 07:31 Lab Results: Laboratory Results - last 24 hr 09/13/18 09/13/18 09/13/18 04:28 07:31 07:31 WBC 2.0 L RBC 4.34 Hgb 12.3 Hct 37.3 MCV 86 MCH 28 MCHC 33 RDW 13.6 Plt Count 116 L Add Manual Diff Complete Total Counted 50 Seg Neuts % (Manual) 50.0 Band Neutrophils % 18.0 Lymphocytes % (Manual) 24.0 Reactive Lymphs % (Man) 0 Monocytes % (Manual) 8.0 H Eosinophils % (Manual) 0 Basophils % (Manual) 0 Metamyelocytes % 0 Myelocytes % 0 Promyelocytes % 0 Blast Cells % 0 Nucleated RBC % Not Reportable Seg Neutrophils # Man 1.0 L Band Neutrophils # 0.4 Lymphocytes # (Manual) 0.5 L Abs React Lymphs (Man) 0.0 Monocytes # (Manual) 0.2 Eosinophils # (Manual) 0.0 Basophils # (Manual) 0.0 Metamyelocytes # 0.0 Myelocytes # 0.0 Promyelocytes # 0.0 Blast Cells # 0.0 WBC Morphology Not Reportable Hypersegmented Neuts Not Reportable Hyposegmented Neuts Not Reportable Hypogranular Neuts Not Reportable Smudge Cells Not Reportable Toxic Granulation Not Reportable Toxic Vacuolation Not Reportable Dohle Bodies Not Reportable Pelger-Huet Anomaly Not Reportable Giovanna Rods Not Reportable Platelet Estimate Consistent w auto Clumped Platelets Not Reportable Plt Clumps, EDTA Not Reportable Large Platelets Not Reportable Giant Platelets Not Reportable Platelet Satelliting Not Reportable Plt Morphology Comment Not Reportable RBC Morphology Not Reportable Dimorphic RBCs Not Reportable Polychromasia Not Reportable Hypochromasia Not Reportable Poikilocytosis Not Reportable Anisocytosis 1+ Microcytosis Rare Macrocytosis Not Reportable Spherocytes Not Reportable Pappenheimer Bodies Not Reportable Sickle Cells Not Reportable Target Cells Not Reportable Tear Drop Cells Not Reportable Ovalocytes 1+ Helmet Cells Not Reportable [place] Bodies Not Reportable [place] Rings Not Reportable [place] Cells Not Reportable Bite Cells Not Reportable Crenated Cell Not Reportable Elliptocytes Few Acanthocytes (Spur) Not Reportable Rouleaux Not Reportable Hemoglobin C Crystals Not Reportable Schistocytes Not Reportable Malaria parasites Not Reportable Kieran Bodies Not Reportable Hem Pathologist Commnt No Sodium 142 D Potassium 3.8 Chloride 110.4 H Carbon Dioxide 19 L Anion Gap 16 BUN 13 Creatinine 0.9 Estimated GFR > 60 BUN/Creatinine Ratio 14 Glucose 97 Calcium 7.9 L Total Bilirubin 0.40 Direct Bilirubin < 0.2 AST 70 H ALT 68 H Alkaline Phosphatase 55 Total Protein 6.5 Albumin 2.5 L Albumin/Globulin Ratio 0.6 Assessment and Plan 1.abnormal CT 2.elevated LFTs -AST 123/ALT 115 on admission- now trending down (AST 70, ALT 68; T.vinicius and alk phos WNL) -abd CT showed enlarged uncinate process of the pancreas (mass vs inflammation vs volume averaging of adjacent structures?) -etiology unclear -clinically, patient reports feeling better with N/V and diarrhea now improved. No BM today. Denies abd pain or signs of bleeding. -hepatitis panel pending -abd U/S pending -will order MRI for further evaluation -continue supportive care -further recommendations to follow above results 3.sepsis 4.bilateral pneumonia-on antibiotics 5.diarrhea-improved -stool studies pending 6.oral candidiasis-on fluconazole 7.HIV-newly diagnosed-ID following 8.neutropenia/thrombocytopenia- 2/2 HIV
[2018-09-13] MEDS: ROCEPHIN/NS 2 GM/100 ML 2 GM/100 ML BAG IV SCH (12:45)
[2018-09-13] MEDS: TAMIFLU PO SCH ×2 (12:46→21:56)
[2018-09-13] MEDS: DIFLUCAN 200 ML IV SCH (14:15)
[2018-09-13] MEDS: ZITHROMAX 500 MG in NACL 0.9% 250ML 250 ML IV SCH (14:15)
[2018-09-13 15:55] LABS: Hepatitis B Surface Antigen Non-Reactive (Negative); Hepatitis C Virus Antibody Non-Reactive (NonReactive)
[2018-09-13] MEDS: BACTRIM 400 MG in D5W 500 ML IV SCH ×2 (18:13→23:59)
[2018-09-14] MEDS: BACTRIM 400 MG in D5W 500 ML IV SCH ×4 (06:22→23:13)
[2018-09-14 08:16] LABS: Alanine Aminotransferase 51 units/L (7-56); Albumin 2.5 g/dL (3.9-5); BUN/Creatinine Ratio 11; Blood Urea Nitrogen 9 mg/dL (9-20); Calcium 7.6 mg/dL (8.4-10.2); Hemolysis Index 2
--- NOTE | 2018-09-14 09:35 | Progress Note ---
Assessment and Plan Assessment and plan: Sepsis. Present on admission. Follow-up blood and stool studies. Continue IV antibiotics. Now on Ceftriaxone, azithromycin, Fluconazole HIV positive. New diagnosis. I informed him of results and discussed with him. he states he has a male partner with whom he has unprotected anal sex. Consult ID Physician. He was evaluated and labs ordered Pneumonia Continue iv Abx. Severe weight loss. May be due to HIV Pancreatic lesion. Consultd GI Physician. Gastroenteritis. Follow-up stool studies. Continue Zosyn and Flagyl Diarrhea. Stool studies for WBC, culture and C. difficile Oral thrush. Fluconazole History Interval history: Severe weight loss Diarrhea Nausea, vomiting fever Hospitalist Physical - Physical exam Narrative exam: GEN: Not in acute distress, lying in bed HEENT: Normocephalic, atraumatic, Neck: supple, No JVD Lungs: Clear to auscultation bilaterally, no wheeze Heart:S1 and S2 regular, no murmurs, rubs or gallop, Abd:soft, non tender, non distended, normal bowel sounds Ext: No edema, no clubbing or cyanosis Neuro: Awake,alert, oriented x 3, No focal signs - Constitutional Vitals: Temp Pulse Resp BP Pulse Ox 98.3 F 98 H 24 107/66 100 09/14/18 04:02 09/14/18 04:02 09/14/18 04:02 09/14/18 04:02 09/14/18 04:02 General appearance: Present: no acute distress Results - Labs CBC & Chem 7: 09/13/18 04:28 09/14/18 07:17 Labs: Laboratory Last Values WBC 2.0 K/mm3 (4.5-11.0) L 09/13/18 04:28 RBC 4.34 M/mm3 (3.65-5.03) 09/13/18 04:28 Hgb 12.3 gm/dl (11.8-15.2) 09/13/18 04:28 Hct 37.3 % (35.5-45.6) 09/13/18 04:28 MCV 86 fl (84-94) 09/13/18 04:28 MCH 28 pg (28-32) 09/13/18 04:28 MCHC 33 % (32-34) 09/13/18 04:28 RDW 13.6 % (13.2-15.2) 09/13/18 04:28 Plt Count 116 K/mm3 (140-440) L 09/13/18 04:28 Mccormick % (Auto) Sports Statistician 09/11/18 18:00 Add Manual Diff Complete 09/13/18 04:28 Total Counted 50 09/13/18 04:28 Seg Neuts % (Manual) 50.0 % (40.0-70.0) 09/13/18 04:28 Band Neutrophils % 18.0 % 09/13/18 04:28 Lymphocytes % (Manual) 24.0 % (13.4-35.0) 09/13/18 04:28 Reactive Lymphs % (Man) 0 % 09/13/18 04:28 Monocytes % (Manual) 8.0 % (0.0-7.3) H 09/13/18 04:28 Eosinophils % (Manual) 0 % (0.0-4.3) 09/13/18 04:28 Basophils % (Manual) 0 % (0.0-1.8) 09/13/18 04:28 Metamyelocytes % 0 % 09/13/18 04:28 Myelocytes % 0 % 09/13/18 04:28 Promyelocytes % 0 % 09/13/18 04:28 Blast Cells % 0 % 09/13/18 04:28 Nucleated RBC % Not Reportable 09/13/18 04:28 Seg Neutrophils # Man 1.0 K/mm3 (1.8-7.7) L 09/13/18 04:28 Band Neutrophils # 0.4 K/mm3 09/13/18 04:28 Lymphocytes # (Manual) 0.5 K/mm3 (1.2-5.4) L 09/13/18 04:28 Abs React Lymphs (Man) 0.0 K/mm3 09/13/18 04:28 Monocytes # (Manual) 0.2 K/mm3 (0.0-0.8) 09/13/18 04:28 Eosinophils # (Manual) 0.0 K/mm3 (0.0-0.4) 09/13/18 04:28 Basophils # (Manual) 0.0 K/mm3 (0.0-0.1) 09/13/18 04:28 Metamyelocytes # 0.0 K/mm3 09/13/18 04:28 Myelocytes # 0.0 K/mm3 09/13/18 04:28 Promyelocytes # 0.0 K/mm3 09/13/18 04:28 Blast Cells # 0.0 K/mm3 09/13/18 04:28 WBC Morphology Not Reportable 09/13/18 04:28 Hypersegmented Neuts Not Reportable 09/13/18 04:28 Hyposegmented Neuts Not Reportable 09/13/18 04:28 Hypogranular Neuts Not Reportable 09/13/18 04:28 Smudge Cells Not Reportable 09/13/18 04:28 Toxic Granulation Not Reportable 09/13/18 04:28 Toxic Vacuolation Not Reportable 09/13/18 04:28 Dohle Bodies Not Reportable 09/13/18 04:28 Pelger-Huet Anomaly Not Reportable 09/13/18 04:28 Giovanna Rods Not Reportable 09/13/18 04:28 Platelet Estimate Consistent w auto 09/13/18 04:28 Clumped Platelets Not Reportable 09/13/18 04:28 Plt Clumps, EDTA Not Reportable 09/13/18 04:28 Large Platelets Not Reportable 09/13/18 04:28 Giant Platelets Not Reportable 09/13/18 04:28 Platelet Satelliting Not Reportable 09/13/18 04:28 Plt Morphology Comment Not Reportable 09/13/18 04:28 RBC Morphology Not Reportable 09/13/18 04:28 Dimorphic RBCs Not Reportable 09/13/18 04:28 Polychromasia Not Reportable 09/13/18 04:28 Hypochromasia Not Reportable 09/13/18 04:28 Poikilocytosis Not Reportable 09/13/18 04:28 Anisocytosis 1+ 09/13/18 04:28 Microcytosis Rare 09/13/18 04:28 Macrocytosis Not Reportable 09/13/18 04:28 Spherocytes Not Reportable 09/13/18 04:28 Pappenheimer Bodies Not Reportable 09/13/18 04:28 Sickle Cells Not Reportable 09/13/18 04:28 Target Cells Not Reportable 09/13/18 04:28 Tear Drop Cells Not Reportable 09/13/18 04:28 Ovalocytes 1+ 09/13/18 04:28 Helmet Cells Not Reportable 09/13/18 04:28 [place] Bodies Not Reportable 09/13/18 04:28 Carman Rings Not Reportable 09/13/18 04:28 Dioni Cells Not Reportable 09/13/18 04:28 Bite Cells Not Reportable 09/13/18 04:28 Crenated Cell Not Reportable 09/13/18 04:28 Elliptocytes Few 09/13/18 04:28 Acanthocytes (Spur) Not Reportable 09/13/18 04:28 Rouleaux Not Reportable 09/13/18 04:28 Hemoglobin C Crystals Not Reportable 09/13/18 04:28 Schistocytes Not Reportable 09/13/18 04:28 Malaria parasites Not Reportable 09/13/18 04:28 Kieran Bodies Not Reportable 09/13/18 04:28 Hem Pathologist Commnt No 09/13/18 04:28 Sodium 138 mmol/L (137-145) 09/14/18 07:17 Potassium 3.4 mmol/L (3.6-5.0) L 09/14/18 07:17 Chloride 106.1 mmol/L (98-107) 09/14/18 07:17 Carbon Dioxide 18 mmol/L (22-30) L 09/14/18 07:17 Anion Gap 17 mmol/L 09/14/18 07:17 BUN 9 mg/dL (9-20) 09/14/18 07:17 Creatinine 0.8 mg/dL (0.8-1.5) 09/14/18 07:17 Estimated GFR > 60 ml/min 09/14/18 07:17 BUN/Creatinine Ratio 11 % 09/14/18 07:17 Glucose 104 mg/dL (75-100) H 09/14/18 07:17 Lactic Acid 0.90 mmol/L (0.7-2.0) 09/11/18 20:17 Calcium 7.6 mg/dL (8.4-10.2) L 09/14/18 07:17 Total Bilirubin 0.20 mg/dL (0.1-1.2) 09/14/18 07:17 Direct Bilirubin < 0.2 mg/dL (0-0.2) 09/13/18 07:31 AST 49 units/L (5-40) H 09/14/18 07:17 ALT 51 units/L (7-56) 09/14/18 07:17 Alkaline Phosphatase 48 units/L (35-129) 09/14/18 07:17 Total Protein 6.4 g/dL (6.3-8.2) 09/14/18 07:17 Albumin 2.5 g/dL (3.9-5) L 09/14/18 07:17 Albumin/Globulin Ratio 0.6 % 09/14/18 07:17 Urine Color [place] (Yellow) 09/11/18 Unknown Urine Turbidity Clear (Clear) 09/11/18 Unknown Urine pH 5.0 (5.0-7.0) 09/11/18 Unknown Ur Specific [place] 1.016 (1.003-1.030) 09/11/18 Unknown Urine Protein <15 mg/dl mg/dL (Negative) 09/11/18 Unknown Urine Glucose (UA) Neg mg/dL (Negative) 09/11/18 Unknown Urine Ketones Neg mg/dL (Negative) 09/11/18 Unknown Urine Blood Sm (Negative) 09/11/18 Unknown Urine Nitrite Neg (Negative) 09/11/18 Unknown Urine Bilirubin Neg (Negative) 09/11/18 Unknown Urine Urobilinogen < 2.0 mg/dL (<2.0) 09/11/18 Unknown Ur Leukocyte Esterase Neg (Negative) 09/11/18 Unknown Urine WBC (Auto) 1.0 /HPF (0.0-6.0) 09/11/18 Unknown Urine RBC (Auto) 3.0 /HPF (0.0-6.0) 09/11/18 Unknown Urine Mucus Few /HPF 09/11/18 Unknown Hepatitis A IgM Ab Non-reactive (NonReactive) 09/13/18 12:29 Hep Bs Antigen Non-reactive (Negative) 09/13/18 12:29 Hep B Core IgM Ab Non-reactive (NonReactive) 09/13/18 12:29 Hepatitis C Antibody Non-reactive (NonReactive) 09/13/18 12:29 HIV 1&2 Antibody Rapid Reactive (Non React) 09/11/18 19:14 HIV P24 Antigen Non react (Non React) 09/11/18 19:14 Influenza A (Rapid) Negative (Negative) 09/13/18 16:05 Influenza A (RT-PCR) Negative (Negative) 09/13/18 16:05 Influenza B (Rapid) Negative (Negative) 09/13/18 16:05 Influenza B (RT-PCR) Negative (Negative) 09/13/18 16:05 Nutrition/Malnutrition Assess - Dietary Evaluation Nutrition/Malnutrition Findings: Nutrition Notes Start: 09/12/18 17:45 Freq: Status: Active Protocol: Document 09/12/18 17:45 OL (Rec: 09/12/18 17:49 OL [id number]) Nutrition Notes Need for Assessment generated from: events and promotions assistant MST Initial or Follow up Assessment Current Diagnosis Sepsis Other Pertinent Diagnosis gastroenteritis Current Diet No diet ordered Labs/Tests Na 131 Pertinent Medications Reviewed Height 6 ft 4 in Weight 96.8 kg Agency Body Weight (kg) 91.81 BMI 25.9 Subjective/Other Information RD screen for malnutrition risk. Pt. reports UBW 280#, wt . loss has occurred in past 6 months. Pt. with N/V/D for 5 days. Burn Absent Trauma Absent Minimum of two criteria Yes Energy Intake (severe) < or equal to 50% Estimated Energy Requirement > or equal to 5 days Interpretation of Weight Loss (severe) >10% in 6 months #1 Nutrition Diagnosis Malnutrition Etiology N/V/D As Evidenced by Signs and Symptoms 23.5 % body wt. loss in 6 months, energy intake less than 50% for 5 days Is patient on ventilator? No Is Patient Ambulatory and/or Out of Bed No REE-([facility]-confined to bed) [phone] Calculation Used for Recommendations [facility] Additional Notes protein (1-1.2g/kg): 97-116 fluid: 1mL/kcal or per MD Nutrition Intervention Change Diet Order: Advance when medically feasible Goal #1 Diet advancement when medically feasible Anticipated Discharge Needs: Unable to determine at this time. Follow-Up By: 09/14/18 Additional Comments f/u: diet advancement
--- NOTE | 2018-09-14 10:11 | Progress Note ---
Assessment and Plan ' Cultures 09/11/2018 Blood: no growth to date 09/13/2018 Serum: Crytococcol negative 33 y/o male with no PMH; admitted on 09/11/2018 due to nausea, voimiting, diarrhea, weight loss and cough: 1. Severe sepsis: present on admission Improved; etio. bilateral pneumonia +/- gastroenteritis in the setting of newly diagnosed HIV. Blood culture 09/11/2018 no growth. 2. Bilateral pneumonia: likely PJP pneumonia in light of HIV infection, other posibilities-CAP, Influenza. CXR showed RUL pneumonia. CT abd showed bibasilar patchy infiltrates. -Influenza PCR negative 3. Diarrhea: ? colitis in immunocompromised patient ?bacterial, parasite, viral 4.Oral candidiasis 5. Weight loss: likely from HIV/AIDS, should r/o malignancy 6. HIV, newly diagninosed with presumed AIDS: given oral candidiasis and pr esumed PJP pneumonia. 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 He did not use condom consistently.-RPR Positive. Will order LP to evaluate +/- neuro syphilis 7. SOB/hypoxemia: from pneumonia 8. Elevated LFTs: due to severe sepsis ? eval for viral hepatitis ? pancreatic mass. CT abdomen showed enlarged uncinate process of the pancreas incompletely evaluated. 9 .Neutropenia/thrombocytopenia: HIV myelosuppression, should r/o disseminated MAC Recs: continue ceftriaxone, azithromycin to cover CAP continue bactrim IV to cover PJP continue fluconazole for oral candidiasis f/u abdominal US f/u AFB-blood culture to r/o disseminated MAC f/u stool for O+P, Giardia and Cryptosporidium f/u CD4/VL/HIV-genotype f/u viral hepatitis panel, lipase, CMV DNA, RPR f/u blood cultures -Order fluoroscopy guided lumbar puncture to evaluate neuro syphilis -CSF for gram culture, cell count, diff, glucose, protein, VDRL and cyptococcal d/w Dr. Marco A James, ACCOUNTING TEACHER [facility] M: [phone] O:[phone] Subjective Date of service: 09/14/18 Interval history: Patient seen and examined. Discussed results of various test, verbalized understanding somewhat. Denied pain, fevers or SOB at this time. Objective - Exam Narrative Exam: Constitutional: Alert, cooperative. No acute distress Head, Ears, Nose: Normocephalic, atraumatic. External ears, nose normal Eyes: Conjunctivae/corneas clear. No icterus. No ptosis. Neck:no JVD, left anterior neck large hard nodule non tender Oral: + thrush Cardiovascular: tachycardic Respiratory: Good air entry, clear to auscultation bilaterally GI: Soft, non-tender; bowel sounds normal. No peritoneal signs Musculoskeletal: No pedal edema, no cyanosis. Skin: No rash or abscess. Hem/Lymphatic: No palpable cervical or supraclavicular nodes. No lymphangitis Psych: Mood ok. Affect normal Neurological: Awake, alert, oriented. No gross abnormality. No weakness - Constitutional Vitals: Vital Signs Temp Pulse Resp BP Pulse Ox 98.3 F 98 H 24 107/66 100 09/14/18 04:02 09/14/18 04:02 09/14/18 04:02 09/14/18 04:02 09/14/18 04:02 Temperature -Last 24 Hours Temperature 98.3 F Temperature 98.2 F Temperature 99.8 F Temperature 98.5 F - Labs CBC & Chem 7: 09/13/18 04:28 09/14/18 07:17 Labs: Abnormal lab results 09/14/18 Range/Units 07:17 Potassium 3.4 L (3.6-5.0) mmol/L Carbon Dioxide 18 L (22-30) mmol/L Glucose 104 H (75-100) mg/dL Calcium 7.6 L (8.4-10.2) mg/dL AST 49 H (5-40) units/L Albumin 2.5 L (3.9-5) g/dL
[2018-09-14] MEDS: ROCEPHIN/NS 2 GM/100 ML 2 GM/100 ML BAG IV SCH (11:00)
[2018-09-14] MEDS: DIFLUCAN 200 ML IV SCH (11:47)
--- NOTE | 2018-09-14 11:49 | Ultrasound Report ---
ULTRASOUND ABDOMEN LIMITED: TECHNIQUE: Transabdominal ultrasound with color Doppler interrogation. HISTORY: Elevated liver function tests, pancreatic lesion. COMPARISON: CT abdomen pelvis with contrast performed 09/12/18. FINDINGS: LIVER: Normal. BILIARY SYSTEM: There are multiple shadowing gallstones in the gallbladder measuring up to 1 cm. No evidence for abnormal distention, wall thickening or surrounding fluid. The CBD measures 4 mm. PANCREAS: Within normal limits. Only the proximal pancreas is adequately imaged. The tail of the pancreas is obscured. The previous CT mentions a prominent uncinate process. No abnormality is identified in this area on ultrasound and CT in my opinion. RIGHT KIDNEY: Normal. PROXIMAL AORTA: Normal. ASCITES: None. IMPRESSION: Cholelithiasis. No evidence for acute cholecystitis. Unremarkable pancreas, see above.
[2018-09-14] MEDS: SODIUM CHLORIDE FLUSH SYRINGE 10 ML IV SCH ×2 (12:02→21:59)
[2018-09-14] MEDS: ZITHROMAX 500 MG in NACL 0.9% 250ML 250 ML IV SCH (14:00)
--- NOTE | 2018-09-14 14:15 | Gastroenterology Progress Note ---
Assessment and Plan 1.abnormal CT 2.elevated LFTs -LFTs trending down -hepatitis panel negative -abd CT showed enlarged uncinate process of the pancreas (mass vs inflammation vs volume averaging of adjacent structures?) -abd U/S- gallstones, otherwise unremarkable -etiology unclear -clinically, patient reports feeling better. Denies abd pain or N/V. Diarrhea improved. -MRI pending for further evaluation -continue supportive care -further recommendations to follow MRI results 3.sepsis 4.bilateral pneumonia-on antibiotics 5.diarrhea-improved -stool studies pending 6.oral candidiasis-on fluconazole 7.HIV-newly diagnosed-ID following 8.neutropenia/thrombocytopenia- 2/2 HIV Subjective Date of service: 09/14/18 Principal diagnosis: elevated LFTs/abnormal CT Interval history: No acute distress. Objective - Constitutional Vitals: Temp Pulse Resp BP Pulse Ox 98.0 F 100 H 18 112/69 96 09/14/18 11:55 09/14/18 11:55 09/14/18 11:55 09/14/18 11:55 09/14/18 11:55 General appearance: no acute distress - Respiratory Respiratory: bilateral: diminished - Cardiovascular Rhythm: other (tachycardia) - Gastrointestinal General gastrointestinal: Present: soft, non-tender, non-distended, normal bowel sounds - Neurologic Neurological: alert and oriented x3 - Labs CBC & Chem 7: 09/13/18 04:28 09/14/18 07:17 Labs: Laboratory Results - last 24 hr 09/13/18 09/13/18 09/13/18 12:29 12:29 16:05 Sodium Potassium Chloride Carbon Dioxide Anion Gap BUN Creatinine Estimated GFR BUN/Creatinine Ratio Glucose Calcium Total Bilirubin AST ALT Alkaline Phosphatase Total Protein Albumin Albumin/Globulin Ratio RPR Titer 1:16 RPR Reactive Hepatitis A IgM Ab Non-reactive Hep Bs Antigen Non-reactive Hep B Core IgM Ab Non-reactive Hepatitis C Antibody Non-reactive Influenza A (Rapid) Influenza A (RT-PCR) Negative Influenza B (Rapid) Influenza B (RT-PCR) Negative 09/13/18 09/14/18 16:05 07:17 Sodium 138 Potassium 3.4 L Chloride 106.1 Carbon Dioxide 18 L Anion Gap 17 BUN 9 Creatinine 0.8 Estimated GFR > 60 BUN/Creatinine Ratio 11 Glucose 104 H Calcium 7.6 L Total Bilirubin 0.20 AST 49 H ALT 51 Alkaline Phosphatase 48 Total Protein 6.4 Albumin 2.5 L Albumin/Globulin Ratio 0.6 RPR Titer RPR Hepatitis A IgM Ab Hep Bs Antigen Hep B Core IgM Ab Hepatitis C Antibody Influenza A (Rapid) Negative Influenza A (RT-PCR) Influenza B (Rapid) Negative Influenza B (RT-PCR)
--- NOTE | 2018-09-14 17:27 | Consultation ---
History of Present Illness - Reason for Consult Consult date: 09/14/18 Reason for consult: Initial Psychiatric Evaluation - Chief Complaint Chief complaint: "I feel sick, I keep throwing up" - History of Present Psychiatric Illness Patient is 33 year male with no significant past medical history. Patient presented to the ER complaining of a five-day history of nausea, vomiting and watery diarrhea. Psychiatry was consulted for depression. Patient denies past psychiatric history. Today the patient is calm and cooperative during the assessment. Patient states that he has been depressed since his father in 07/2018. Per best friend at the bedside both of patient's parents are . Patient endorses isolative/withdrawn behavior, decrease energy, sleep fluctuations, appetite fluctuations, and lack of motivation. Throughout the assessment patient presents confused at times. Poor eye contact. When later asked about the of his father , patient states, " no he is still alive. He's missing a limb." Per best friend prior to hospitalization patient was " incoherent at times." He denies SI/HI's, A/VH's, and delusions. Patient recently diagnosed with HIV 09/11/18. Current Psychiatric Medications: Patient denies. Past Psychiatric History: no previous psychiatric diagnosis; no previous inpatient psychiatric hospitalizations; no outpatient psychiatrist; no previous suicide attempts. Past Psychiatric Medication Trials: Patient denies. Trauma/ Abuse History: Patient denies sexual, physical, and mental abuse. Alcohol/ Drug Abuse History: Patient denies drug/alcohol abuse history. Social History: Some College- highest level of education; Employed- [employer]; no children; patient is currently in a relationship status; good support system. Medications and Allergies Allergies Allergy/AdvReac Type Severity Reaction Status Date / Time No Known Allergies Allergy Unverified 09/11/18 17:50 Active Meds: Active Medications Acetaminophen (Tylenol) 650 mg PO Q4H PRN PRN Reason: Pain MILD(1-3)/Fever >100.5/RIVERA Last Admin: 09/12/18 03:57 Dose: 650 mg Documented by: Albuterol (Proventil) 2.5 mg IH Q4HRT PRN PRN Reason: Shortness Of Breath Sodium Chloride (Nacl 0.9% 1000 Ml) 1,000 mls @ 100 mls/hr IV DIRECT GIA Last Admin: 09/13/18 23:58 Dose: 100 mls/hr Documented by: Azithromycin 500 mg/ Sodium (Chloride) 250 mls @ 250 mls/hr IV Q24HR [facility] Last Admin: 09/14/18 14:00 Dose: 250 mls/hr Documented by: Fluconazole (Diflucan) 200 mls @ 100 mls/hr IV Q24HR [facility]; Protocol Last Admin: 09/14/18 11:47 Dose: 100 mls/hr Documented by: Ceftriaxone Sodium (Rocephin/Ns 2 Gm/100 Ml) 2 gm in 100 mls @ 200 mls/hr IV Q24HR [facility] Last Admin: 09/14/18 11:00 Dose: 200 mls/hr Documented by: Trimethoprim/Sulfamethoxazole (400 mg/ Dextrose) 525 mls @ 350 mls/hr IV Q6HR [facility] Last Admin: 09/14/18 16:26 Dose: 350 mls/hr Documented by: Ondansetron HCl (Zofran) 4 mg IV Q8H PRN PRN Reason: Nausea And Vomiting Sodium Chloride (Sodium Chloride Flush Syringe 10 Ml) 10 ml IV BID [facility] Last Admin: 09/14/18 12:02 Dose: 10 ml Documented by: Sodium Chloride (Sodium Chloride Flush Syringe 10 Ml) 10 ml IV PRN PRN PRN Reason: LINE FLUSH Mental Status Exam - Vital signs Last Vital Signs Temp 98.0 F 09/14/18 11:55 Pulse 100 H 09/14/18 11:55 Resp 18 09/14/18 11:55 BP 112/69 09/14/18 11:55 Pulse Ox 96 09/14/18 11:55 - Exam Narrative exam: Mental Status Exam Appearance: calm Behavior: poor eye contact Speech: regular rate and soft/raspy tone Mood: "I'm alright" Affect: constricted Thought Process: circumstantial Thought Content: denies SI/HI's, AVH's, and delusions Motor Activity: laying in bed Cognition: A/O x 1 ; " August 26" " [facility]" ; confused Insight: poor Judgment: variable Results Result Diagrams: 09/13/18 04:28 09/14/18 07:17 Abnormal lab results 09/14/18 Range/Units 07:17 Potassium 3.4 L (3.6-5.0) mmol/L Carbon Dioxide 18 L (22-30) mmol/L Glucose 104 H (75-100) mg/dL Calcium 7.6 L (8.4-10.2) mg/dL AST 49 H (5-40) units/L Albumin 2.5 L (3.9-5) g/dL All other labs normal. Assessment and Plan Assessment and plan: Impression: NO PPHx. MDD, recurrent, severe without psychosis. Today the patent is calm and cooperative during the assessment. The patient denies SI/HI's, A/VH's, and delusions. Recently diagnosed with HIV on 09/11/18. Recommendation/Plan: 1. Will reassess in 24 hours. 2. Gather collateral to determine proper disposition. 3. Discussed the benefits/risks of medication. Patient refuses medication at this time. He prefers talk therapy. 4. Psychiatry will wait to start medication due to confusion. Recommend Delirium precautions below: 1. Frequently reorient patient and involve him/her in their care (simple explanations of procedures, tests, medications). 2. Lights on and shades open during daytime hours. 3. Write date and goals of care in a visible place. 4. Try to avoid unnecessary interruptions to sleep during nighttime hours. 5. Obtain glasses, hearing aids from home if patient uses these at baseline. 6. Avoid medications that may exacerbate delirium (especially narcotics, benzodiazepines, barbiturates, ambien, lunesta, and medications with excessive anticholinergic properties). Disposition: Will refer to outpatient therapist at the [facility] upon discharge. Will staff with Dr. Orly Tobar.
[2018-09-14 20:54] LABS: HIV-1 RNA QN PCR 4.71 Log cps/mL
--- NOTE | 2018-09-14 22:12 | Magnetic Resonance Report ---
FINAL REPORT PROCEDURE: MR ABDOMEN W CON TECHNIQUE: Magnetic resonance imaging of the abdomen was performed using standard pulse sequences wi thout contrast material, followed by the IV injection paramagnetic contrast and additional sequences. MRCP images were also obtained. HISTORY: Possible pancreatic massmultihance 18mL COMPARISON: CT 09/12/2018 FINDINGS: Study is very limited by patient motion artifact. Most of the acquired sequences are nondiagnostic du e to motion artifact There is right lung base atelectasis or infiltrate. Liver parenchyma: Grossly unremarkable Biliary system: Cholelithiasis. There is nondiagnostic evaluation for choledocholithiasis. No biliary ductal dilatation is noted however Pancreas: There is very limited evaluation of the pancreas. No obvious mass is identified. Kidneys/Adrenal glands: Normal. Spleen: Normal. Aorta/Lymph nodes: Normal. IMPRESSION: Study is very limited by patient motion artifact. Most of the acquired sequences are nondiagnostic. N o obvious pancreatic mass is identified, however a small pancreatic mass would be beyond the detectio n of this exam. If there is clinical suspicion for pancreatic mass, short-term follow-up with CT with IV contrast is suggested and may be better tolerated by the patient rather than MRI follow-up. There is cholelithiasis. There is nondiagnostic evaluation for choledocholithiasis, however no biliar y ductal dilatation is noted Right lung base atelectasis or infiltrate
[2018-09-15] MEDS: NACL 0.9% 1000 ML 1,000 ML IV SCH (02:34)
[2018-09-15 05:43] LABS: Hematocrit 31.1 % (35.5-45.6); Hemoglobin 10.4 gm/dl (11.8-15.2); Mean Corpuscular HGB Conc 33 % (32-34); Mean Corpuscular Volume 85 fl (84-94); Platelet Count 113 K/mm3 (140-440); Red Blood Count 3.66 M/mm3 (3.65-5.03); Red Cell Distribution Width 13.6 % (13.2-15.2)
[2018-09-15 06:06] LABS: BUN/Creatinine Ratio 8; Blood Urea Nitrogen 6 mg/dL (9-20); Calcium 7.4 mg/dL (8.4-10.2); Hemolysis Index 4
[2018-09-15] MEDS: BACTRIM 400 MG in D5W 500 ML IV SCH ×3 (06:11→19:45)
[2018-09-15 07:37] LABS: HIV-1 Antibody Differentiation SEE SCANNED RESULT; HIV-2 Antibody Differentiation SEE SCANNED RESULT
--- NOTE | 2018-09-15 09:52 | Progress Note ---
Assessment and Plan ' Cultures 09/11/2018 Blood: no growth to date 09/13/2018 Serum: Crytococcol negative 09/13/2018 Giardi Antigen: positive 09/13/2018 Crytosporidum: negative 09/13/2018 Stool WBC: negative 33 y/o male with no PMH; admitted on 09/11/2018 due to nausea, voimiting, diarrhea, weight loss and cough: 1. Severe sepsis: present on admission Improved; etio. bilateral pneumonia +/- gastroenteritis in the setting of newly diagnosed HIV. Blood culture 09/11/2018 no growth. 2. Bilateral pneumonia: likely PJP pneumonia in light of HIV infection, other posibilities-CAP, Influenza. CXR showed RUL pneumonia. CT abd showed bibasilar patchy infiltrates. -Influenza PCR negative 3. Diarrhea: ? colitis in immunocompromised patient ?bacterial, parasite, viral 4.Oral candidiasis 5. Weight loss: likely from HIV/AIDS, should r/o malignancy 6. HIV, newly diagninosed with presumed AIDS: given oral candidiasis and presumed PJP pneumonia. 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 He did not use condom consistently .-RPR Positive. Will order LP to evaluate +/- neuro syphilis -VL 50.700 7. SOB/hypoxemia: from pneumonia 8. Elevated LFTs: due to severe sepsis ? eval for viral hepatitis ? pancreatic mass. CT abdomen showed enlarged uncinate process of the pancreas incompletely evaluated. Abdominal u/s shows cholelithiasis. No evidence for acute cholecystitis. Hep A,B,C -negative 9 .Neutropenia/thrombocytopenia: HIV myelosuppression, should r/o disseminated MAC 10. Acute Encephalopathy; +/- nuero syphilis, Follow up LP results Recs: continue ceftriaxone, azithromycin to cover CAP, D3 or D5 continue bactrim IV to cover PJP for 21 days continue fluconazole for oral candidiasis for 14 days f/u AFB-blood culture to r/o disseminated MAC f/u CD4/VL/HIV-genotype f/u viral hepatitis panel, lipase, CMV DNA, RPR f/u blood cultures -f/u fluoroscopy guided lumbar puncture to evaluate neuro syphilis -CSF for gram culture, cell count, diff, glucose, protein, VDRL and cyptococcal -Start Flagyl 500mg, IV q 8 to cover Giardi Anayeli Erika, [employer] [facility] M: [phone] O:[phone] Subjective Date of service: 09/15/18 Principal diagnosis: elevated LFTs/abnormal CT Interval history: Patient seen and examined. Increased confusion. Friend at bedside. Objective - Exam Narrative Exam: Constitutional: acute Encephalopathy Head, Ears, Nose: Normocephalic, atraumatic. External ears, nose normal Eyes: Conjunctivae/corneas clear. No icterus. No ptosis. Neck:no JVD, left anterior neck large hard nodule non tender Oral: + thrush Cardiovascular: tachycardic Respiratory: Good air entry, clear to auscultation bilaterally GI: Soft, non-tender; bowel sounds normal. No peritoneal signs Musculoskeletal: No pedal edema, no cyanosis. Skin: No rash or abscess. Hem/Lymphatic: No palpable cervical or supraclavicular nodes. No lymphangitis Psych: Mood ok. Affect normal Neurological: sleepy, acute encephalopathy - Constitutional Vitals: Vital Signs Temp Pulse Resp BP Pulse Ox 98.4 F 93 H 18 102/63 97 09/15/18 00:23 09/15/18 00:23 09/15/18 00:23 09/15/18 00:23 09/15/18 00:23 Temperature -Last 24 Hours Temperature 98.4 F Temperature 99.6 F Temperature 98.0 F - Labs CBC & Chem 7: 09/15/18 05:05 09/15/18 05:05 Labs: Abnormal lab results 09/13/18 09/15/18 09/15/18 Range/Units 12:29 05:05 05:05 WBC 1.6 L* (4.5-11.0) K/mm3 Hgb 10.4 L (11.8-15.2) gm/dl Hct 31.1 L D (35.5-45.6) % Plt Count 113 L (140-440) K/mm3 Chloride 107.9 H (98-107) mmol/L Carbon Dioxide 18 L (22-30) mmol/L BUN 6 L (9-20) mg/dL Calcium 7.4 L (8.4-10.2) mg/dL HIV-1 RNA PCR copies/ml 06857 H Copies/mL HIV-1 RNA (PCR) log 4.71 H Log cps/mL
[2018-09-15 09:57] LABS: INR 1.09 (0.87-1.13)
--- NOTE | 2018-09-15 10:35 | Gastroenterology Progress Note ---
Addendum entered and electronically signed by JESSICA SWEET MD 09/15/18 15:17: - management as outlined - MRI as outpt - call if needed Original Note: Assessment and Plan 1.abnormal CT 2.elevated LFTs -LFTs trending down -hepatitis panel negative -abd CT showed enlarged uncinate process of the pancreas (mass vs inflammation vs volume averaging of adjacent structures?) -abd U/S- gallstones, otherwise unremarkable -etiology unclear -MRI yesterday showed gallstones but no obvious pancreatic mass, choledocholith iasis, or biliary ductal dilatation, however study was limited 2/2 patient motion artifact (liver grossly normal) -clinically, patient is w/o GI complaints such as abd pain or N/V. Diarrhea improved. Tolerating diet. -continue supportive care -no further intervention at this time -recommend f/u in clinic upon d/c for further workup/evaluation and repeat imaging in 1-2months -will sign off, please call if needed 3.sepsis 4.bilateral pneumonia-likely PJP-on antibiotics 5.diarrhea-improved 6.oral candidiasis-on fluconazole 7.HIV-newly diagnosed-RPR positive with LP pending for today-further management per ID 8.neutropenia/thrombocytopenia- 2/2 HIV Subjective Date of service: 09/15/18 Principal diagnosis: elevated LFTs/abnormal CT Interval history: No acute distress or GI complaints. Objective - Constitutional Vitals: Temp Pulse Resp BP Pulse Ox 98.4 F 93 H 18 102/63 97 09/15/18 00:23 09/15/18 00:23 09/15/18 00:23 09/15/18 00:23 09/15/18 00:23 General appearance: no acute distress - Respiratory Respiratory: bilateral: diminished - Cardiovascular Rhythm: regular Heart Sounds: Present: S1 & S2 - Gastrointestinal General gastrointestinal: Present: soft, non-tender, non-distended, normal bowel sounds - Labs CBC & Chem 7: 09/15/18 05:05 09/15/18 05:05 Labs: Laboratory Results - last 24 hr 09/11/18 09/12/18 09/13/18 19:14 05:30 12:29 WBC RBC Hgb Hct MCV MCH MCHC RDW Plt Count PT INR Sodium Potassium Chloride Carbon Dioxide Anion Gap BUN Creatinine Estimated GFR BUN/Creatinine Ratio Glucose Calcium RPR Titer RPR C. difficile Toxin A&B Negative HIV-1 Antibody See scanned result HIV-1 RNA PCR copies/ml 77500 H HIV-1 RNA (PCR) log 4.71 H HIV-2 Ab (Immunoblot) See scanned result 09/13/18 09/15/18 09/15/18 12:29 05:05 05:05 WBC 1.6 L* RBC 3.66 Hgb 10.4 L Hct 31.1 L D MCV 85 MCH 28 MCHC 33 RDW 13.6 Plt Count 113 L PT INR Sodium 139 Potassium 3.6 Chloride 107.9 H Carbon Dioxide 18 L Anion Gap 17 BUN 6 L Creatinine 0.8 Estimated GFR > 60 BUN/Creatinine Ratio 8 Glucose 80 Calcium 7.4 L RPR Titer 1:16 RPR Reactive C. difficile Toxin A&B HIV-1 Antibody HIV-1 RNA PCR copies/ml HIV-1 RNA (PCR) log HIV-2 Ab (Immunoblot) 09/15/18 09:33 WBC RBC Hgb Hct MCV MCH MCHC RDW Plt Count PT 14.5 INR 1.09 Sodium Potassium Chloride Carbon Dioxide Anion Gap BUN Creatinine Estimated GFR BUN/Creatinine Ratio Glucose Calcium RPR Titer RPR C. difficile Toxin A&B HIV-1 Antibody HIV-1 RNA PCR copies/ml HIV-1 RNA (PCR) log HIV-2 Ab (Immunoblot)
[2018-09-15] MEDS ORDERED: XYLOCAINE 1% 20 mL ONE (11:03)
[2018-09-15] MEDS: ROCEPHIN/NS 2 GM/100 ML 2 GM/100 ML BAG IV SCH (12:21)
[2018-09-15] MEDS: DIFLUCAN 200 ML IV SCH (12:22)
[2018-09-15 15:23] LABS: Glucose,CSF 23 mg/dL
--- NOTE | 2018-09-15 15:37 | Procedure Note ---
Date of procedure: 09/15/18 Pre-op diagnosis: HIV, AMS Post-op diagnosis: same Procedure: FL guided LP Findings: 16 cc clear CSF obtained. Anesthesia: local Surgeon: MELISSA PÉREZ Estimated blood loss: none Specimen disposition: to lab Condition: stable Disposition: floor (Stay flat in bed x 1 hr post proc. Then head end sl. up, as needed. Restrict activity or lifting.)
--- NOTE | 2018-09-15 15:38 | Fluoroscopy Report ---
FLUORO GUIDED LUMBAR PUNCTURE INDICATION: HIV positive/RPR. Evaluate for neurosyphilis. COMPARISON: None similar. IMAGES/CINE CLIPS: 1 FINDINGS: Patient with altered mental status. Two MD consent on chart. Patient positioned prone on the fluoroscopy table. An appropriate skin site marked using fluoro guidance. Patient prepped and draped in the usual sterile fashion. 1% lidocaine used for local anesthesia. A 22-gauge long spinal needle advanced into the thecal sac at L3-L4 with clear CSF obtained. Total of approximately 16 cc CSF retrieved and sent to the lab in 4 separate test tubes. Patient tolerated the procedure well and left the department in stable condition. CONCLUSION: Status post lumbar puncture, as described. Dr. Wilson present for and performed the entire procedure. Thank you for the opportunity to participate in this patient's care.
[2018-09-15 15:59] LABS: Appearance,CSF Clear; Red Blood Cell,CSF 280 /mm3 (0-0); White Blood Cell,CSF 3 /mm3 (1-10)
[2018-09-15 16:34] LABS: Basophils CSF 0 %; Total Cells Counted 100 /mm3
--- NOTE | 2018-09-15 16:47 | Progress Note ---
Assessment and Plan Assessment and plan: Sepsis. Present on admission. Follow-up blood and stool studies. Continue IV antibiotics. Now on Ceftriaxone, azithromycin, Fluconazole HIV positive. New diagnosis. I informed him of results and discussed with him. He states he has a male partner with whom he has unprotected anal sex. ID Physician following. He was evaluated and labs ordered Pneumonia Continue iv Abx. Severe weight loss. May be due to HIV Pancreatic lesion. Consulted GI Physician, he was evaluated Gastroenteritis. Follow-up stool studies. Continue Zosyn and Flagyl Diarrhea. Stool studies for WBC, culture and C. difficile Oral thrush. Fluconazole Toxic metabolic encephalopathy. he is confused, lethargic Lumbar puncture severe malnutrition. consult Dietitian Full code status History Interval history: Severe weight loss Diarrhea Nausea, vomiting fever Confusion Hospitalist Physical - Physical exam Narrative exam: GEN: Not in acute distress, lying in bed HEENT: Normocephalic, atraumatic, Neck: supple, No JVD Lungs: Clear to auscultation bilaterally, no wheeze Heart:S1 and S2 regular, no murmurs, rubs or gallop, Abd:soft, non tender, non distended, normal bowel sounds Ext: No edema, no clubbing or cyanosis Neuro: Awake,alert, oriented x 3, No focal signs - Constitutional Vitals: Temp Pulse Resp BP Pulse Ox 98.4 F 93 H 18 102/63 97 09/15/18 00:23 09/15/18 00:23 09/15/18 00:23 09/15/18 00:23 09/15/18 00:23 General appearance: Present: no acute distress Results - Labs CBC & Chem 7: 09/16/18 06:55 09/15/18 05:05 Labs: Laboratory Last Values WBC 1.6 K/mm3 (4.5-11.0) L* 09/15/18 05:05 RBC 3.66 M/mm3 (3.65-5.03) 09/15/18 05:05 Hgb 10.4 gm/dl (11.8-15.2) L 09/15/18 05:05 Hct 31.1 % (35.5-45.6) L D 09/15/18 05:05 MCV 85 fl (84-94) 09/15/18 05:05 MCH 28 pg (28-32) 09/15/18 05:05 MCHC 33 % (32-34) 09/15/18 05:05 RDW 13.6 % (13.2-15.2) 09/15/18 05:05 Plt Count 113 K/mm3 (140-440) L 09/15/18 05:05 [place] % (Auto) Market Manager 09/11/18 18:00 Add Manual Diff Complete 09/13/18 04:28 Total Counted 50 09/13/18 04:28 Seg Neuts % (Manual) 50.0 % (40.0-70.0) 09/13/18 04:28 Band Neutrophils % 18.0 % 09/13/18 04:28 Lymphocytes % (Manual) 24.0 % (13.4-35.0) 09/13/18 04:28 Reactive Lymphs % (Man) 0 % 09/13/18 04:28 Monocytes % (Manual) 8.0 % (0.0-7.3) H 09/13/18 04:28 Eosinophils % (Manual) 0 % (0.0-4.3) 09/13/18 04:28 Basophils % (Manual) 0 % (0.0-1.8) 09/13/18 04:28 Metamyelocytes % 0 % 09/13/18 04:28 Myelocytes % 0 % 09/13/18 04:28 Promyelocytes % 0 % 09/13/18 04:28 Blast Cells % 0 % 09/13/18 04:28 Nucleated RBC % Not Reportable 09/13/18 04:28 Seg Neutrophils # Man 1.0 K/mm3 (1.8-7.7) L 09/13/18 04:28 Band Neutrophils # 0.4 K/mm3 09/13/18 04:28 Lymphocytes # (Manual) 0.5 K/mm3 (1.2-5.4) L 09/13/18 04:28 Abs React Lymphs (Man) 0.0 K/mm3 09/13/18 04:28 Monocytes # (Manual) 0.2 K/mm3 (0.0-0.8) 09/13/18 04:28 Eosinophils # (Manual) 0.0 K/mm3 (0.0-0.4) 09/13/18 04:28 Basophils # (Manual) 0.0 K/mm3 (0.0-0.1) 09/13/18 04:28 Metamyelocytes # 0.0 K/mm3 09/13/18 04:28 Myelocytes # 0.0 K/mm3 09/13/18 04:28 Promyelocytes # 0.0 K/mm3 09/13/18 04:28 Blast Cells # 0.0 K/mm3 09/13/18 04:28 WBC Morphology Not Reportable 09/13/18 04:28 Hypersegmented Neuts Not Reportable 09/13/18 04:28 Hyposegmented Neuts Not Reportable 09/13/18 04:28 Hypogranular Neuts Not Reportable 09/13/18 04:28 Smudge Cells Not Reportable 09/13/18 04:28 Toxic Granulation Not Reportable 09/13/18 04:28 Toxic Vacuolation Not Reportable 09/13/18 04:28 Dohle Bodies Not Reportable 09/13/18 04:28 Pelger-Huet Anomaly Not Reportable 09/13/18 04:28 Giovanna Rods Not Reportable 09/13/18 04:28 Platelet Estimate Consistent w auto 09/13/18 04:28 Clumped Platelets Not Reportable 09/13/18 04:28 Plt Clumps, EDTA Not Reportable 09/13/18 04:28 Large Platelets Not Reportable 09/13/18 04:28 Giant Platelets Not Reportable 09/13/18 04:28 Platelet Satelliting Not Reportable 09/13/18 04:28 Plt Morphology Comment Not Reportable 09/13/18 04:28 RBC Morphology Not Reportable 09/13/18 04:28 Dimorphic RBCs Not Reportable 09/13/18 04:28 Polychromasia Not Reportable 09/13/18 04:28 Hypochromasia Not Reportable 09/13/18 04:28 Poikilocytosis Not Reportable 09/13/18 04:28 Anisocytosis 1+ 09/13/18 04:28 Microcytosis Rare 09/13/18 04:28 Macrocytosis Not Reportable 09/13/18 04:28 Spherocytes Not Reportable 09/13/18 04:28 Pappenheimer Bodies Not Reportable 09/13/18 04:28 Sickle Cells Not Reportable 09/13/18 04:28 Target Cells Not Reportable 09/13/18 04:28 Tear Drop Cells Not Reportable 09/13/18 04:28 Ovalocytes 1+ 09/13/18 04:28 Helmet Cells Not Reportable 09/13/18 04:28 [place] Bodies Not Reportable 09/13/18 04:28 [place] Rings Not Reportable 09/13/18 04:28 [place] Cells Not Reportable 09/13/18 04:28 Bite Cells Not Reportable 09/13/18 04:28 Crenated Cell Not Reportable 09/13/18 04:28 Elliptocytes Few 09/13/18 04:28 Acanthocytes (Spur) Not Reportable 09/13/18 04:28 Rouleaux Not Reportable 09/13/18 04:28 Hemoglobin C Crystals Not Reportable 09/13/18 04:28 Schistocytes Not Reportable 09/13/18 04:28 Malaria parasites Not Reportable 09/13/18 04:28 Kieran Bodies Not Reportable 09/13/18 04:28 Hem Pathologist Commnt No 09/13/18 04:28 PT 14.5 Sec. (12.2-14.9) 09/15/18 09:33 INR 1.09 (0.87-1.13) 09/15/18 09:33 Sodium 139 mmol/L (137-145) 09/15/18 05:05 Potassium 3.6 mmol/L (3.6-5.0) 09/15/18 05:05 Chloride 107.9 mmol/L (98-107) H 09/15/18 05:05 Carbon Dioxide 18 mmol/L (22-30) L 09/15/18 05:05 Anion Gap 17 mmol/L 09/15/18 05:05 BUN 6 mg/dL (9-20) L 09/15/18 05:05 Creatinine 0.8 mg/dL (0.8-1.5) 09/15/18 05:05 Estimated GFR > 60 ml/min 09/15/18 05:05 BUN/Creatinine Ratio 8 % 09/15/18 05:05 Glucose 80 mg/dL (75-100) 09/15/18 05:05 Lactic Acid 0.90 mmol/L (0.7-2.0) 09/11/18 20:17 Calcium 7.4 mg/dL (8.4-10.2) L 09/15/18 05:05 Total Bilirubin 0.20 mg/dL (0.1-1.2) 09/14/18 07:17 Direct Bilirubin < 0.2 mg/dL (0-0.2) 09/13/18 07:31 AST 49 units/L (5-40) H 09/14/18 07:17 ALT 51 units/L (7-56) 09/14/18 07:17 Alkaline Phosphatase 48 units/L (35-129) 09/14/18 07:17 Total Protein 6.4 g/dL (6.3-8.2) 09/14/18 07:17 Albumin 2.5 g/dL (3.9-5) L 09/14/18 07:17 Albumin/Globulin Ratio 0.6 % 09/14/18 07:17 Urine Color [place] (Yellow) 09/11/18 Unknown Urine Turbidity Clear (Clear) 09/11/18 Unknown Urine pH 5.0 (5.0-7.0) 09/11/18 Unknown Ur Specific [place] 1.016 (1.003-1.030) 09/11/18 Unknown Urine Protein <15 mg/dl mg/dL (Negative) 09/11/18 Unknown Urine Glucose (UA) Neg mg/dL (Negative) 09/11/18 Unknown Urine Ketones Neg mg/dL (Negative) 09/11/18 Unknown Urine Blood Sm (Negative) 09/11/18 Unknown Urine Nitrite Neg (Negative) 09/11/18 Unknown Urine Bilirubin Neg (Negative) 09/11/18 Unknown Urine Urobilinogen < 2.0 mg/dL (<2.0) 09/11/18 Unknown Ur Leukocyte Esterase Neg (Negative) 09/11/18 Unknown Urine WBC (Auto) 1.0 /HPF (0.0-6.0) 09/11/18 Unknown Urine RBC (Auto) 3.0 /HPF (0.0-6.0) 09/11/18 Unknown Urine Mucus Few /HPF 09/11/18 Unknown CSF Appearance Clear 09/15/18 Unknown CSF Color Colorless 09/15/18 Unknown CSF WBC 3 /mm3 (1-10) 09/15/18 Unknown CSF RBC 280 /mm3 (0-0) 09/15/18 Unknown CSF Seg Neutrophils 13.0 % (0-6) 09/15/18 Unknown CSF Lymphocytes % 74.0 % (40-80) 09/15/18 Unknown CSF Reactive Lymphs 0 % 09/15/18 Unknown CSF Monocytes % 13.0 % (15-45) 09/15/18 Unknown CSF Eosinophils % 0 % 09/15/18 Unknown CSF Basophils 0 % 09/15/18 Unknown CSF Pathologist Review C 09/15/18 Unknown CSF Glucose 23 mg/dL 09/15/18 Unknown CSF Total Protein 194 mg/dL 09/15/18 Unknown RPR Titer 1:16 09/13/18 12:29 RPR Reactive (Nonreactive) 09/13/18 12:29 C. difficile Toxin A&B Negative (Negative) 09/12/18 05:30 Hepatitis A IgM Ab Non-reactive (NonReactive) 09/13/18 12:29 Hep Bs Antigen Non-reactive (Negative) 09/13/18 12:29 Hep B Core IgM Ab Non-reactive (NonReactive) 09/13/18 12:29 Hepatitis C Antibody Non-reactive (NonReactive) 09/13/18 12:29 HIV-1 Antibody See scanned result 09/11/18 19:14 HIV-1 RNA PCR copies/ml 64545 Copies/mL H 09/13/18 12:29 HIV-1 RNA (PCR) log 4.71 Log cps/mL H 09/13/18 12:29 HIV-2 Ab (Immunoblot) See scanned result 09/11/18 19:14 HIV 1&2 Antibody Rapid Reactive (Non React) 09/11/18 19:14 HIV P24 Antigen Non react (Non React) 09/11/18 19:14 Influenza A (Rapid) Negative (Negative) 09/13/18 16:05 Influenza A (RT-PCR) Negative (Negative) 09/13/18 16:05 Influenza B (Rapid) Negative (Negative) 09/13/18 16:05 Influenza B (RT-PCR) Negative (Negative) 09/13/18 16:05 Nutrition/Malnutrition Assess - Dietary Evaluation Nutrition/Malnutrition Findings: Nutrition Notes Start: 09/12/18 17:45 Freq: Status: Active Protocol: Document 09/14/18 13:53 SANDY (Rec: 09/14/18 13:58 SANDY SRW- [email or web address]) Nutrition Notes Initial or Follow up Reassessment Current Diagnosis Sepsis Other Pertinent Diagnosis Newly dx HIV, Bilat pneu Current Diet Regular Labs/Tests K 3.4 Pertinent Medications reviewed Height 6 ft Weight 101.3 kg [place] Body Weight (kg) 80.90 BMI 30.2 Weight change and time frame Current wt obtained from bed scale Weight Status Obese Subjective/Other Information Pt reports "ok" appetite; says he ate 100% of breakfast this am. Burn Absent Trauma Absent #1 Nutrition Diagnosis Malnutrition As Evidenced by Signs and Symptoms pt consumed 100% breakfast this am Diagnosis Progress(for reassessment Improved documentation) Is patient on ventilator? No Is Patient Ambulatory and/or Out of Bed Yes REE-([place]-ambulatory/OOB) [ 2594.800 [id number]] Kcal/Kg value to use for calculation 21 Approximate Energy Requirements Using 2127 kcal/Kg Calculation Used for Recommendations Kcal/kg Additional Notes Pro needs 0.8-1g/kg adjBW: 73- 91g/day Fluid needs 1ml/kcal Nutrition Intervention Change Diet Order: Continue current diet order Goal #1 PO intake of meals to meet at least 75% of energy and pro needs Anticipated Discharge Needs: None identified at this time Follow-Up By: 09/20/18 Additional Comments F/U: intakes - Attestation Statement I have reviewed and agreed w/ Malnutrition eval & tx plan: Yes
[2018-09-15] MEDS: SODIUM CHLORIDE FLUSH SYRINGE 10 ML IV SCH ×2 (16:55→21:43)
[2018-09-15] MEDS: ZITHROMAX 500 MG in NACL 0.9% 250ML 250 ML IV SCH (16:55)
[2018-09-15] MEDS: PROVENTIL IH PRN (21:43)
[2018-09-15] MEDS: FLAGYL 500 MG/100 ML 500 MG/100 ML BAG IV SCH (21:48)
[2018-09-16] MEDS: BACTRIM 400 MG in D5W 500 ML IV SCH ×4 (00:20→19:51)
[2018-09-16] MEDS: FLAGYL 500 MG/100 ML 500 MG/100 ML BAG IV SCH ×3 (05:52→22:53)
[2018-09-16] MEDS: PROVENTIL IH PRN (06:09)
[2018-09-16 07:22] LABS: Hematocrit 33.5 % (35.5-45.6); Hemoglobin 10.9 gm/dl (11.8-15.2); Mean Corpuscular HGB Conc 33 % (32-34); Mean Corpuscular Volume 87 fl (84-94); Platelet Count 135 K/mm3 (140-440); Red Blood Count 3.86 M/mm3 (3.65-5.03); Red Cell Distribution Width 14.1 % (13.2-15.2)
[2018-09-16] MEDS: PROVENTIL IH SCH ×3 (09:01→21:00)
[2018-09-16] MEDS: ROCEPHIN/NS 2 GM/100 ML 2 GM/100 ML BAG IV SCH (10:53)
--- NOTE | 2018-09-16 11:18 | Progress Note ---
Assessment and Plan ' Cultures 09/11/2018 Blood: no growth to date 09/13/2018 Serum: Crytococcol negative 09/13/2018 Giardi Antigen: positive 09/13/2018 Crytosporidum: negative 09/13/2018 Stool WBC: negative 33 y/o male with no PMH; admitted on 09/11/2018 due to nausea, voimiting, diarrhea, weight loss and cough: 1. Severe sepsis: present on admission Improved; etio. bilateral pneumonia +/- gastroenteritis in the setting of newly diagnosed HIV. Blood culture 09/11/2018 no growth. 2. Bilateral pneumonia: likely PJP pneumonia in light of HIV infection, other posibilities-CAP, Influenza. CXR showed RUL pneumonia. CT abd showed bibasilar patchy infiltrates. -Influenza PCR negative 3. Diarrhea: ? colitis in immunocompromised patient ?bacterial, parasite, viral 4.Oral candidiasis 5. Weight loss: likely from HIV/AIDS, should r/o malignancy 6. HIV, newly diagninosed with presumed AIDS: given oral candidiasis and presumed PJP pneumonia. 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 He did not use condom consistently .-RPR Positive. Will order LP to evaluate +/- neuro syphilis -VL 50.700 7. SOB/hypoxemia: from pneumonia 8. Elevated LFTs: due to severe sepsis ? eval for viral hepatitis ? pancreatic mass. CT abdomen showed enlarged uncinate process of the pancreas incompletely evaluated. Abdominal u/s shows cholelithiasis. No evidence for acute cholecystitis. Hep A,B,C -negative 9 .Neutropenia/thrombocytopenia: HIV myelosuppression, should r/o disseminated MAC 10. Acute Encephalopathy; increased confusion and disorientation with time and self, now restrained. +/- neuro syphilis,, Will f/u VDRL. If neurosyphilis is diagnosed will add Aqueous crystalline Penicillin G IV for 14 days. If VDRL in CSF is not reactive will do Penicillin benzathine 2.4 million units IM once weekly x 3 weeks. Recs: continue ceftriaxone, azithromycin to cover CAP, D3 or D5 continue bactrim IV to cover PJP for 21 days continue fluconazole for oral candidiasis for 14 days f/u AFB-blood culture to r/o disseminated MAC f/u CD4/HIV-genotype f/u blood cultures -f/u fluoroscopy guided lumbar puncture to evaluate neuro syphilis -f/u CSF VDRL- pending -continue Flagyl 500mg, IV q 8 to cover Giardi Order MRI of Brain for brain toxiplasosis, pml -CSF for CMV DNA PCR and YAYO virus PCR -Toxo IGG in serum -CMV-DNA PCR in serum -check ammonia, TSH, Vit B12 -check UDS Neurology consult placed d/w Dr. Baltazar and Dr. Marco A James, [facility] M: [id number] O:[phone] Subjective Date of service: 09/16/18 Principal diagnosis: elevated LFTs/abnormal CT Interval history: Patient seen and examined. Increased confusion. not following commands, now restrained. Requested patient be moved closer to nursing station and monitor Sat's. Objective - Exam Narrative Exam: Constitutional: acute Encephalopathy Head, Ears, Nose: Normocephalic, atraumatic. External ears, nose normal Eyes: Conjunctivae/corneas clear. No icterus. No ptosis. Neck:no JVD, left anterior neck large hard nodule non tender Oral: + thrush Cardiovascular: tachycardic Respiratory: Good air entry, clear to auscultation bilaterally GI: Soft, non-tender; bowel sounds normal. No peritoneal signs Musculoskeletal: No pedal edema, no cyanosis. Skin: No rash or abscess. Hem/Lymphatic: No palpable cervical or supraclavicular nodes. No lymphangitis Psych: Mood ok. Affect normal Neurological: increased confusion and disorientation to self , place and time. - Constitutional Vitals: Vital Signs Temp Pulse Resp BP Pulse Ox 98.4 F 102 H 20 111/63 96 09/16/18 05:45 09/16/18 09:11 09/16/18 09:11 09/16/18 05:45 09/16/18 09:01 Temperature -Last 24 Hours Temperature 98.4 F Temperature 98.6 F Temperature 98.6 F Temperature 97.7 F - Labs CBC & Chem 7: 09/16/18 06:55 09/15/18 05:05 Labs: Abnormal lab results 09/16/18 Range/Units 06:55 WBC 2.8 L (4.5-11.0) K/mm3 Hgb 10.9 L (11.8-15.2) gm/dl Hct 33.5 L (35.5-45.6) % Plt Count 135 L (140-440) K/mm3
[2018-09-16] MEDS: ZITHROMAX 500 MG in NACL 0.9% 250ML 250 ML IV SCH (11:27)
--- NOTE | 2018-09-16 11:48 | Progress Note ---
Assessment and Plan Assessment and plan: Sepsis. Present on admission. Follow-up blood and stool studies. Continue IV antibiotics. Now on Ceftriaxone, azithromycin, Fluconazole HIV/AIDS. New diagnosis. I informed him of results and discussed with him. He states he has a male partner with whom he has unprotected anal sex. ID Physician following. He was evaluated and labs ordered CD 4 couunt of 4 Pneumonia Continue iv Abx. Severe weight loss. May be due to HIV Pancreatic lesion. Consulted GI Physician, he was evaluated Gastroenteritis. Follow-up stool studies. Continue Zosyn and Flagyl Diarrhea. Stool studies for WBC, culture and C. difficile Oral thrush. Fluconazole Toxic metabolic encephalopathy. he is confused, lethargic Lumbar puncture severe malnutrition. consult Dietitian Full code status History Interval history: Severe weight loss Diarrhea Nausea, vomiting fever Confusion Hospitalist Physical - Physical exam Narrative exam: GEN: Not in acute distress, lying in bed HEENT: Normocephalic, atraumatic, Neck: supple, No JVD Lungs: Clear to auscultation bilaterally, no wheeze Heart:S1 and S2 regular, no murmurs, rubs or gallop, Abd:soft, non tender, non distended, normal bowel sounds Ext: No edema, no clubbing or cyanosis Neuro: Lethargic, confused, moves all extremities - Constitutional Vitals: Temp Pulse Resp BP Pulse Ox 98.4 F 102 H 20 111/63 96 09/16/18 05:45 09/16/18 09:11 09/16/18 09:11 09/16/18 05:45 09/16/18 09:01 General appearance: Present: no acute distress Results - Labs CBC & Chem 7: 09/17/18 05:13 09/17/18 05:13 Labs: Laboratory Last Values WBC 2.8 K/mm3 (4.5-11.0) L 09/16/18 06:55 RBC 3.86 M/mm3 (3.65-5.03) 09/16/18 06:55 Hgb 10.9 gm/dl (11.8-15.2) L 09/16/18 06:55 Hct 33.5 % (35.5-45.6) L 09/16/18 06:55 MCV 87 fl (84-94) 09/16/18 06:55 MCH 28 pg (28-32) 09/16/18 06:55 MCHC 33 % (32-34) 09/16/18 06:55 RDW 14.1 % (13.2-15.2) 09/16/18 06:55 Plt Count 135 K/mm3 (140-440) L 09/16/18 06:55 [place] % (Auto) Chief Construction Inspector 09/11/18 18:00 Add Manual Diff Complete 09/13/18 04:28 Total Counted 50 09/13/18 04:28 Seg Neuts % (Manual) 50.0 % (40.0-70.0) 09/13/18 04:28 Band Neutrophils % 18.0 % 09/13/18 04:28 Lymphocytes % (Manual) 24.0 % (13.4-35.0) 09/13/18 04:28 Reactive Lymphs % (Man) 0 % 09/13/18 04:28 Monocytes % (Manual) 8.0 % (0.0-7.3) H 09/13/18 04:28 Eosinophils % (Manual) 0 % (0.0-4.3) 09/13/18 04:28 Basophils % (Manual) 0 % (0.0-1.8) 09/13/18 04:28 Metamyelocytes % 0 % 09/13/18 04:28 Myelocytes % 0 % 09/13/18 04:28 Promyelocytes % 0 % 09/13/18 04:28 Blast Cells % 0 % 09/13/18 04:28 Nucleated RBC % Not Reportable 09/13/18 04:28 Seg Neutrophils # Man 1.0 K/mm3 (1.8-7.7) L 09/13/18 04:28 Band Neutrophils # 0.4 K/mm3 09/13/18 04:28 Lymphocytes # (Manual) 0.5 K/mm3 (1.2-5.4) L 09/13/18 04:28 Abs React Lymphs (Man) 0.0 K/mm3 09/13/18 04:28 Monocytes # (Manual) 0.2 K/mm3 (0.0-0.8) 09/13/18 04:28 Eosinophils # (Manual) 0.0 K/mm3 (0.0-0.4) 09/13/18 04:28 Basophils # (Manual) 0.0 K/mm3 (0.0-0.1) 09/13/18 04:28 Metamyelocytes # 0.0 K/mm3 09/13/18 04:28 Myelocytes # 0.0 K/mm3 09/13/18 04:28 Promyelocytes # 0.0 K/mm3 09/13/18 04:28 Blast Cells # 0.0 K/mm3 09/13/18 04:28 WBC Morphology Not Reportable 09/13/18 04:28 Hypersegmented Neuts Not Reportable 09/13/18 04:28 Hyposegmented Neuts Not Reportable 09/13/18 04:28 Hypogranular Neuts Not Reportable 09/13/18 04:28 Smudge Cells Not Reportable 09/13/18 04:28 Toxic Granulation Not Reportable 09/13/18 04:28 Toxic Vacuolation Not Reportable 09/13/18 04:28 Dohle Bodies Not Reportable 09/13/18 04:28 Pelger-Huet Anomaly Not Reportable 09/13/18 04:28 Giovanna Rods Not Reportable 09/13/18 04:28 Platelet Estimate Consistent w auto 09/13/18 04:28 Clumped Platelets Not Reportable 09/13/18 04:28 Plt Clumps, EDTA Not Reportable 09/13/18 04:28 Large Platelets Not Reportable 09/13/18 04:28 Giant Platelets Not Reportable 09/13/18 04:28 Platelet Satelliting Not Reportable 09/13/18 04:28 Plt Morphology Comment Not Reportable 09/13/18 04:28 RBC Morphology Not Reportable 09/13/18 04:28 Dimorphic RBCs Not Reportable 09/13/18 04:28 Polychromasia Not Reportable 09/13/18 04:28 Hypochromasia Not Reportable 09/13/18 04:28 Poikilocytosis Not Reportable 09/13/18 04:28 Anisocytosis 1+ 09/13/18 04:28 Microcytosis Rare 09/13/18 04:28 Macrocytosis Not Reportable 09/13/18 04:28 Spherocytes Not Reportable 09/13/18 04:28 Pappenheimer Bodies Not Reportable 09/13/18 04:28 Sickle Cells Not Reportable 09/13/18 04:28 Target Cells Not Reportable 09/13/18 04:28 Tear Drop Cells Not Reportable 09/13/18 04:28 Ovalocytes 1+ 09/13/18 04:28 Helmet Cells Not Reportable 09/13/18 04:28 [place] Bodies Not Reportable 09/13/18 04:28 [place] Rings Not Reportable 09/13/18 04:28 [place] Cells Not Reportable 09/13/18 04:28 Bite Cells Not Reportable 09/13/18 04:28 Crenated Cell Not Reportable 09/13/18 04:28 Elliptocytes Few 09/13/18 04:28 Acanthocytes (Spur) Not Reportable 09/13/18 04:28 Rouleaux Not Reportable 09/13/18 04:28 Hemoglobin C Crystals Not Reportable 09/13/18 04:28 Schistocytes Not Reportable 09/13/18 04:28 Malaria parasites Not Reportable 09/13/18 04:28 Kieran Bodies Not Reportable 09/13/18 04:28 Hem Pathologist Commnt No 09/13/18 04:28 PT 14.5 Sec. (12.2-14.9) 09/15/18 09:33 INR 1.09 (0.87-1.13) 09/15/18 09:33 Sodium 139 mmol/L (137-145) 09/15/18 05:05 Potassium 3.6 mmol/L (3.6-5.0) 09/15/18 05:05 Chloride 107.9 mmol/L (98-107) H 09/15/18 05:05 Carbon Dioxide 18 mmol/L (22-30) L 09/15/18 05:05 Anion Gap 17 mmol/L 09/15/18 05:05 BUN 6 mg/dL (9-20) L 09/15/18 05:05 Creatinine 0.8 mg/dL (0.8-1.5) 09/15/18 05:05 Estimated GFR > 60 ml/min 09/15/18 05:05 BUN/Creatinine Ratio 8 % 09/15/18 05:05 Glucose 80 mg/dL (75-100) 09/15/18 05:05 Lactic Acid 0.90 mmol/L (0.7-2.0) 09/11/18 20:17 Calcium 7.4 mg/dL (8.4-10.2) L 09/15/18 05:05 Total Bilirubin 0.20 mg/dL (0.1-1.2) 09/14/18 07:17 Direct Bilirubin < 0.2 mg/dL (0-0.2) 09/13/18 07:31 AST 49 units/L (5-40) H 09/14/18 07:17 ALT 51 units/L (7-56) 09/14/18 07:17 Alkaline Phosphatase 48 units/L (35-129) 09/14/18 07:17 Total Protein 6.4 g/dL (6.3-8.2) 09/14/18 07:17 Albumin 2.5 g/dL (3.9-5) L 09/14/18 07:17 Albumin/Globulin Ratio 0.6 % 09/14/18 07:17 Urine Color [place] (Yellow) 09/11/18 Unknown Urine Turbidity Clear (Clear) 09/11/18 Unknown Urine pH 5.0 (5.0-7.0) 09/11/18 Unknown Ur Specific [place] 1.016 (1.003-1.030) 09/11/18 Unknown Urine Protein <15 mg/dl mg/dL (Negative) 09/11/18 Unknown Urine Glucose (UA) Neg mg/dL (Negative) 09/11/18 Unknown Urine Ketones Neg mg/dL (Negative) 09/11/18 Unknown Urine Blood Sm (Negative) 09/11/18 Unknown Urine Nitrite Neg (Negative) 09/11/18 Unknown Urine Bilirubin Neg (Negative) 09/11/18 Unknown Urine Urobilinogen < 2.0 mg/dL (<2.0) 09/11/18 Unknown Ur Leukocyte Esterase Neg (Negative) 09/11/18 Unknown Urine WBC (Auto) 1.0 /HPF (0.0-6.0) 09/11/18 Unknown Urine RBC (Auto) 3.0 /HPF (0.0-6.0) 09/11/18 Unknown Urine Mucus Few /HPF 09/11/18 Unknown CSF Appearance Clear 09/15/18 Unknown CSF Color Colorless 09/15/18 Unknown CSF WBC 3 /mm3 (1-10) 09/15/18 Unknown CSF RBC 280 /mm3 (0-0) 09/15/18 Unknown CSF Seg Neutrophils 13.0 % (0-6) 09/15/18 Unknown CSF Lymphocytes % 74.0 % (40-80) 09/15/18 Unknown CSF Reactive Lymphs 0 % 09/15/18 Unknown CSF Monocytes % 13.0 % (15-45) 09/15/18 Unknown CSF Eosinophils % 0 % 09/15/18 Unknown CSF Basophils 0 % 09/15/18 Unknown CSF Pathologist Review C 09/15/18 Unknown CSF Glucose 23 mg/dL 09/15/18 Unknown CSF Total Protein 194 mg/dL 09/15/18 Unknown RPR Titer 1:16 09/13/18 12:29 RPR Reactive (Nonreactive) 09/13/18 12:29 C. difficile Toxin A&B Negative (Negative) 09/12/18 05:30 Hepatitis A IgM Ab Non-reactive (NonReactive) 09/13/18 12:29 Hep Bs Antigen Non-reactive (Negative) 09/13/18 12:29 Hep B Core IgM Ab Non-reactive (NonReactive) 09/13/18 12:29 Hepatitis C Antibody Non-reactive (NonReactive) 09/13/18 12:29 HIV-1 Antibody See scanned result 09/11/18 19:14 HIV-1 RNA PCR copies/ml 86558 Copies/mL H 09/13/18 12:29 HIV-1 RNA (PCR) log 4.71 Log cps/mL H 09/13/18 12:29 HIV-2 Ab (Immunoblot) See scanned result 09/11/18 19:14 HIV 1&2 Antibody Rapid Reactive (Non React) 09/11/18 19:14 HIV P24 Antigen Non react (Non React) 09/11/18 19:14 Influenza A (Rapid) Negative (Negative) 09/13/18 16:05 Influenza A (RT-PCR) Negative (Negative) 09/13/18 16:05 Influenza B (Rapid) Negative (Negative) 09/13/18 16:05 Influenza B (RT-PCR) Negative (Negative) 09/13/18 16:05 Nutrition/Malnutrition Assess - Dietary Evaluation Nutrition/Malnutrition Findings: Nutrition Notes Start: 09/12/18 17:45 Freq: Status: Active Protocol: Document 09/14/18 13:53 SANDY (Rec: 09/14/18 13:58 SANDY [id number] CES1) Nutrition Notes Initial or Follow up Reassessment Current Diagnosis Sepsis Other Pertinent Diagnosis Newly dx HIV, Bilat pneu Current Diet Regular Labs/Tests K 3.4 Pertinent Medications reviewed Height 6 ft Weight 101.3 kg [place] Body Weight (kg) 80.90 BMI 30.2 Weight change and time frame Current wt obtained from bed scale Weight Status Obese Subjective/Other Information Pt reports "ok" appetite; says he ate 100% of breakfast this am. Burn Absent Trauma Absent #1 Nutrition Diagnosis Malnutrition As Evidenced by Signs and Symptoms pt consumed 100% breakfast this am Diagnosis Progress(for reassessment Improved documentation) Is patient on ventilator? No Is Patient Ambulatory and/or Out of Bed Yes REE-([place]-ambulatory/OOB) [ 2594.800 NUTR.[id number]] Kcal/Kg value to use for calculation 21 Approximate Energy Requirements Using 2127 kcal/Kg Calculation Used for Recommendations Kcal/kg Additional Notes Pro needs 0.8-1g/kg adjBW: 73- 91g/day Fluid needs 1ml/kcal Nutrition Intervention Change Diet Order: Continue current diet order Goal #1 PO intake of meals to meet at least 75% of energy and pro needs Anticipated Discharge Needs: None identified at this time Follow-Up By: 09/20/18 Additional Comments F/U: intakes
[2018-09-16 12:31] LABS: CD4/CD8 Ratio 0.01 (0.86-5.00)
[2018-09-16] MEDS ORDERED: D5/0.45NS 1,000 ML IV SCH (13:00)
--- NOTE | 2018-09-16 13:12 | Progress Note ---
Subjective - Reason for Consult Consult date: 09/16/18 Reason for consult: Psychiatry Follow-up - Chief Complaint Chief complaint: "I'm here for a oil change" 33 year male with no significant past medical history. The patient presented to the ER complaining of a five-day history of nausea, vomiting and watery diarrhea. Psychiatry was consulted for depression. Today the patient is confused during the assessment. His answers to questions were not logical. He was asked about his hospital visit,he stated, "I came here for an oil change." The patient had to be redirected several times to keep him on topic. He denies SI/HI's. Mental Status Exam - Vital signs Last Vital Signs Temp 98.2 F 09/16/18 12:17 Pulse 102 H 09/16/18 12:17 Resp 24 09/16/18 12:17 BP 112/65 09/16/18 12:17 Pulse Ox 97 09/16/18 12:17 - Exam Narrative exam: MSE: Appearance: calm Behavior: poor eye contact Speech: regular rate and low tone Mood: "okay" Affect: constricted Thought Process: confused Thought Content: denies SI/HI's Motor Activity: laying in bed Cognition: alert Insight: poor Judgment: unable to assess Assessment and Plan Impression: Delirium. Today the patent is calm, but confused during the assessment. Medical: Toxic Metabolic Encephalopathy Recommendation/Plan: Psy sign off, reconsult if patient become more oriented. Recommend Delirium precautions below: 1. Frequently reorient patient and involve him/her in their care (simple explanations of procedures, tests, medications). 2. Lights on and shades open during daytime hours. 3. Write date and goals of care in a visible place. 4. Try to avoid unnecessary interruptions to sleep during nighttime hours. 5. Obtain glasses, hearing aids from home if patient uses these at baseline. 6. Avoid medications that may exacerbate delirium (especially narcotics, benzodiazepines, barbiturates, ambien, lunesta, and medications with excessive anticholinergic properties). Will staff with Dr Morris.
[2018-09-16] MEDS ORDERED: ATIVAN IV ONE (13:36)
[2018-09-16] MEDS: DIFLUCAN 200 ML IV SCH (16:39)
--- NOTE | 2018-09-16 17:16 | XRay Report ---
FINAL REPORT EXAM: XR CHEST 1V AP HISTORY: shortness of breath TECHNIQUE: Frontal chest x-ray. PRIORS: Chest x-ray September 11, 2018 FINDINGS: Cardiac silhouette is within normal limits. There is no effusion. There is no pneumothorax. There is no consolidation. There are no suspicious osseous lesions. IMPRESSION: No acute cardiopulmonary findings.
--- NOTE | 2018-09-16 17:43 | Magnetic Resonance Report ---
FINAL REPORT EXAM: MR BRAIN WO/W CON HISTORY: for brain toxoplasmosis, [id number] multihance TECHNIQUE: Multiplanar multisequence brain MR imaging before and after IV contrast. PRIORS: None. FINDINGS: Nonspecific increased signal on diffusion-weighted imaging and ADC, in the visible portion of the rig ht parotid gland, may be artifact of slightly oblique imaging. It does not enhance with IV contrast. Differential includes edema, inflammation, or infection. Slight mucosal thickening right maxillary sinus. Retention cyst left maxillary sinus and bilateral sp henoid sinus. The included air filled sinuses contain no acute fluid level. The brain is without mass, mass effect, hemorrhage, or acute infarct. There are no areas of brain res tricted diffusion to suggest an acute ischemic infarct. There is no midline shift or brain edema. The ventricles and sulci are age-appropriate. No abnormal IV contrast enhancement is visualized. IMPRESSION: No acute CVA or brain mass Left maxillary and bilateral sphenoid sinus retention cysts. Mucosal thickening right maxillary sinus . No paranasal sinus acute fluid level the Suggestion of abnormal signal in the partially visualized right parotid gland may be artifact of slig htly oblique imaging. Differential includes edema, inflammation, or infection, in the appropriate cli nical setting
--- NOTE | 2018-09-16 18:12 | Consultation ---
History of Present Illness Consult date: 09/16/18 Chief complaint: AMS History of present illness: This is a 33 YO M with HIV+, Cd4 4, did not see viral load but notes do not mention ART who presented to the hospital with N,V, diarrhea. Not clear if pt initially altered but definitely delirious on my arrival. Not clear that he knew he was in a hospital, thought year was 2011, did know his birthday. Could not tell me what was wrong with him or why he was here. All history is as per chart. Past History Past Medical History: No medical history, HIV/AIDS, other (reviewed) Past Surgical History: No surgical history, Other (reviewed) Social history: single, lives with family, smoking, other (alcohol ). denies: prescription drug abuse Family history: no significant family history (reviewed) Medications and Allergies Allergies Allergy/AdvReac Type Severity Reaction Status Date / Time No Known Allergies Allergy Unverified 09/11/18 17:50 Active Meds: Active Medications Acetaminophen (Tylenol) 650 mg PO Q4H PRN PRN Reason: Pain MILD(1-3)/Fever >100.5/RIVERA Last Admin: 09/12/18 03:57 Dose: 650 mg Documented by: Albuterol (Proventil) 2.5 mg IH Q4HRT PRN PRN Reason: Shortness Of Breath Last Admin: 09/16/18 06:09 Dose: 2.5 mg Documented by: Albuterol (Proventil) 2.5 mg IH TIDRT GIA Last Admin: 09/16/18 15:13 Dose: 2.5 mg Documented by: Azithromycin 500 mg/ Sodium (Chloride) 250 mls @ 250 mls/hr IV Q24HR GIA Last Admin: 09/16/18 11:27 Dose: 250 mls/hr Documented by: Fluconazole (Diflucan) 200 mls @ 100 mls/hr IV Q24HR [facility]; Protocol Last Admin: 09/16/18 16:39 Dose: 100 mls/hr Documented by: Ceftriaxone Sodium (Rocephin/Ns 2 Gm/100 Ml) 2 gm in 100 mls @ 200 mls/hr IV Q24HR [facility] Last Admin: 09/16/18 10:53 Dose: 200 mls/hr Documented by: Trimethoprim/Sulfamethoxazole (400 mg/ Dextrose) 525 mls @ 350 mls/hr IV Q6HR [facility] Last Admin: 09/16/18 14:24 Dose: 350 mls/hr Documented by: Metronidazole (Flagyl 500 Mg/100 Ml) 500 mg in 100 mls @ 100 mls/hr IV Q8HR [facility]; Protocol Last Admin: 09/16/18 05:52 Dose: 100 mls/hr Documented by: Dextrose/Sodium Chloride (D5/0.45ns) 1,000 mls @ 75 mls/hr IV DIRECT [facility] Last Admin: 09/16/18 14:24 Dose: 75 mls/hr Documented by: Ondansetron HCl (Zofran) 4 mg IV Q8H PRN PRN Reason: Nausea And Vomiting Sodium Chloride (Sodium Chloride Flush Syringe 10 Ml) 10 ml IV BID [facility] Last Admin: 09/15/18 21:43 Dose: 10 ml Documented by: Sodium Chloride (Sodium Chloride Flush Syringe 10 Ml) 10 ml IV PRN PRN PRN Reason: LINE FLUSH Review of Systems ROS unobtainable: due to mental status Physical Examination - Vital Signs Vital Signs: Vital Signs Temp Pulse BP Pulse Ox 98.5 F 136 H 89/54 99 09/11/18 17:47 09/11/18 17:47 09/11/18 17:47 09/11/18 17:47 - EENT EENT: Present: mucous membranes dry - Respiratory Respiratory: Present: lungs clear - Cardiovascular Cardiovascular: Present: regular rate Extremities: Present: no peripheral edema bilatateraly - Neurologic Cranial nerve examination: PERRL, EOMI, face symmetric, tongue midline Detailed motor examination: grossly full strength in Detailed sensory examination: light touch, temperature Reflex and gait examination: other (pt unsteady) Reflexes: 1+: ankle, bicep, knee, tricep Results - Laboratory Findings CBC and BMP: 09/16/18 06:55 09/15/18 05:05 Abnormal Lab Findings: Abnormal Labs 09/11/18 09/11/18 09/11/18 18:00 18:00 18:00 WBC 1.9 L* Hgb Hct Plt Count 130 L Monocytes % (Manual) 16.0 H Seg Neutrophils # Man 0.9 L Abs Lymphs (Manual) Lymphocytes # (Manual) 0.5 L POC ABG pCO2 POC ABG pO2 Sodium 131 L Potassium Chloride Carbon Dioxide 17 L BUN 21 H Glucose 126 H Lactic Acid 2.60 H* Calcium 8.1 L AST 123 H ALT 115 H Albumin 3.0 L Vitamin B12 TSH Free T4 Lymph Enumerat CD4/CD8 Absolute CD3 Count % CD4 Cells Absolute CD4 Count % CD8 Cells Absolute CD19 Count HIV-1 RNA PCR copies/ml HIV-1 RNA (PCR) log 09/11/18 09/13/18 09/13/18 19:01 04:28 07:31 WBC 2.0 L Hgb Hct Plt Count 116 L Monocytes % (Manual) 8.0 H Seg Neutrophils # Man 1.0 L Abs Lymphs (Manual) Lymphocytes # (Manual) 0.5 L POC ABG pCO2 POC ABG pO2 Sodium Potassium Chloride 110.4 H Carbon Dioxide 19 L BUN Glucose Lactic Acid 3.70 H* Calcium 7.9 L AST ALT Albumin Vitamin B12 TSH Free T4 Lymph Enumerat CD4/CD8 Absolute CD3 Count % CD4 Cells Absolute CD4 Count % CD8 Cells Absolute CD19 Count HIV-1 RNA PCR copies/ml HIV-1 RNA (PCR) log 09/13/18 09/13/18 09/13/18 07:31 12:29 12:29 WBC Hgb Hct Plt Count Monocytes % (Manual) Seg Neutrophils # Man Abs Lymphs (Manual) 309 L Lymphocytes # (Manual) POC ABG pCO2 POC ABG pO2 Sodium Potassium Chloride Carbon Dioxide BUN Glucose Lactic Acid Calcium AST 70 H ALT 68 H Albumin 2.5 L Vitamin B12 TSH Free T4 Lymph Enumerat CD4/CD8 0.01 L Absolute CD3 Count 220 L % CD4 Cells 1 L Absolute CD4 Count 4 L % CD8 Cells 70 H Absolute CD19 Count 54 L HIV-1 RNA PCR copies/ml 50489 H HIV-1 RNA (PCR) log 4.71 H 09/14/18 09/15/18 09/15/18 07:17 05:05 05:05 WBC 1.6 L* Hgb 10.4 L Hct 31.1 L D Plt Count 113 L Monocytes % (Manual) Seg Neutrophils # Man Abs Lymphs (Manual) Lymphocytes # (Manual) POC ABG pCO2 POC ABG pO2 Sodium Potassium 3.4 L Chloride 107.9 H Carbon Dioxide 18 L 18 L BUN 6 L Glucose 104 H Lactic Acid Calcium 7.6 L 7.4 L AST 49 H ALT Albumin 2.5 L Vitamin B12 TSH Free T4 Lymph Enumerat CD4/CD8 Absolute CD3 Count % CD4 Cells Absolute CD4 Count % CD8 Cells Absolute CD19 Count HIV-1 RNA PCR copies/ml HIV-1 RNA (PCR) log 09/16/18 09/16/18 09/16/18 06:55 11:41 11:41 WBC 2.8 L Hgb 10.9 L Hct 33.5 L Plt Count 135 L Monocytes % (Manual) Seg Neutrophils # Man Abs Lymphs (Manual) Lymphocytes # (Manual) POC ABG pCO2 POC ABG pO2 Sodium Potassium Chloride Carbon Dioxide BUN Glucose Lactic Acid Calcium AST ALT Albumin Vitamin B12 TSH 4.210 H Free T4 0.72 L Lymph Enumerat CD4/CD8 Absolute CD3 Count % CD4 Cells Absolute CD4 Count % CD8 Cells Absolute CD19 Count HIV-1 RNA PCR copies/ml HIV-1 RNA (PCR) log 09/16/18 09/16/18 11:41 15:43 WBC Hgb Hct Plt Count Monocytes % (Manual) Seg Neutrophils # Man Abs Lymphs (Manual) Lymphocytes # (Manual) POC ABG pCO2 29.3 L POC ABG pO2 70 L Sodium Potassium Chloride Carbon Dioxide BUN Glucose Lactic Acid Calcium AST ALT Albumin Vitamin B12 934.5 H TSH Free T4 Lymph Enumerat CD4/CD8 Absolute CD3 Count % CD4 Cells Absolute CD4 Count % CD8 Cells Absolute CD19 Count HIV-1 RNA PCR copies/ml HIV-1 RNA (PCR) log - Diagnostic Findings Additional findings: MRI Brain reviewed, no acute brain findings, CSF reviewed- 3 WBC mostly lymphs, glucose 23 Assessment and Plan This is a 33 YO with HIV/AIDS who presented to the ED with N/V, now with delirium. CSF with low white count and glucose REcommend: Would continue antibiotic regimen until cultures are complete. Did not see any cultures currently. Antibiotics as per ID MRI Brain reviewed, no acute brain findings EEG Avoid sedating medications when possible Continue care for all medical issues as you are doing Would have neuro follow up on EEG and make additional recommendations if needed.
[2018-09-17] MEDS: BACTRIM 400 MG in D5W 500 ML IV SCH ×4 (00:55→18:35)
[2018-09-17 06:13] LABS: Hematocrit 32.7 % (35.5-45.6); Hemoglobin 10.9 gm/dl (11.8-15.2); Mean Platelet Volume 9.7 fl (6-12); Red Blood Count 3.88 M/mm3 (3.65-5.03)
[2018-09-17 06:15] LABS: Alanine Aminotransferase 30 units/L (7-56); Albumin 2.6 g/dL (3.9-5); BUN/Creatinine Ratio 4; Blood Urea Nitrogen 3 mg/dL (9-20); Calcium 7.9 mg/dL (8.4-10.2); Hemolysis Index 1
[2018-09-17] MEDS: FLAGYL 500 MG/100 ML 500 MG/100 ML BAG IV SCH ×3 (07:54→22:01)
[2018-09-17] MEDS: SODIUM CHLORIDE FLUSH SYRINGE 10 ML IV SCH ×3 (08:06→22:00)
[2018-09-17] MEDS: ZITHROMAX 500 MG in NACL 0.9% 250ML 250 ML IV SCH (10:12)
[2018-09-17] MEDS: ROCEPHIN/NS 2 GM/100 ML 2 GM/100 ML BAG IV SCH (11:03)
[2018-09-17] MEDS: DIFLUCAN 200 ML IV SCH (11:03)
--- NOTE | 2018-09-17 11:26 | XRay Report ---
FINAL REPORT EXAM: XR CHEST 1V AP HISTORY: acute resp failure COMPARISON: Chest radiograph performed on 09/16/2018 TECHNIQUE: Single frontal view of the chest FINDINGS: The cardiomediastinal silhouette is normal in appearance. There is streaky opacity in the right midlung, increased in conspicuity as compared to the previous s tudy. The left lung is clear. No pleural effusion or pneumothorax. No acute bony or soft tissue abnormality. IMPRESSION: Streaky opacity in the right midlung, that may represent developing infiltrate.
[2018-09-17] MEDS: PROVENTIL IH SCH ×3 (11:45→19:55)
[2018-09-17 16:18] LABS: Amphetamine Screen,Urine PRESUMPTIVE NEGATIVE; Benzodiazepines Screen,Urine PRESUMPTIVE NEGATIVE; Cannabinoid Screen,Urine PRESUMPTIVE NEGATIVE; Cocaine Screen,Urine PRESUMPTIVE NEGATIVE; Methadone Screen,Urine PRESUMPTIVE NEGATIVE; Opiate Screen,Urine PRESUMPTIVE NEGATIVE
--- NOTE | 2018-09-17 16:19 | Progress Note ---
Assessment and Plan Assessment and plan: Sepsis. Present on admission.. Continue IV antibiotics. Now on Ceftriaxone, azithromycin, Fluconazole HIV/AIDS. New diagnosis. I informed him of results and discussed with him. He states he has a male partner with whom he has unprotected anal sex. ID Physician following. He was evaluated and labs ordered CD 4 couunt of 4 Pneumonia Continue iv Abx. Severe weight loss. May be due to HIV Pancreatic lesion. Consulted GI Physician, he was evaluated Gastroenteritis. Follow-up stool studies. Continue Zosyn and Flagyl C. diff neg Giardiasis Syphilis RPR positive Diarrhea. C.diff neg Oral thrush. Fluconazole Toxic metabolic encephalopathy. he is confused, lethargic Lumbar puncture done, CSF analysed severe malnutrition. consulted Dietitian Full code status History Interval history: Severe weight loss Diarrhea Nausea, vomiting fever Confusion lethargy Hospitalist Physical - Physical exam Narrative exam: GEN: Not in acute distress, lying in bed HEENT: Normocephalic, atraumatic, Neck: supple, No JVD Lungs: Clear to auscultation bilaterally, no wheeze Heart:S1 and S2 regular, no murmurs, rubs or gallop, Abd:soft, non tender, non distended, normal bowel sounds Ext: No edema, no clubbing or cyanosis Neuro: Lethargic, confused, moves all extremities - Constitutional Vitals: Temp Pulse Resp BP Pulse Ox 98.4 F 91 H 22 112/69 96 09/17/18 13:04 09/17/18 11:46 09/17/18 13:04 09/17/18 13:04 09/17/18 12:02 General appearance: Present: no acute distress Results - Labs CBC & Chem 7: 09/17/18 05:13 09/17/18 05:13 Labs: Laboratory Last Values WBC 2.0 K/mm3 (4.5-11.0) L 09/17/18 05:13 RBC 3.88 M/mm3 (3.65-5.03) 09/17/18 05:13 Hgb 10.9 gm/dl (11.8-15.2) L 09/17/18 05:13 Hct 32.7 % (35.5-45.6) L 09/17/18 05:13 MCV 84 fl (84-94) 09/17/18 05:13 MCH 28 pg (28-32) 09/17/18 05:13 MCHC 33 % (32-34) 09/17/18 05:13 RDW 14.0 % (13.2-15.2) 09/17/18 05:13 Plt Count 147 K/mm3 (140-440) 09/17/18 05:13 [place] % (Auto) Mini Shifter 09/11/18 18:00 Add Manual Diff Complete 09/13/18 04:28 Total Counted 50 09/13/18 04:28 Seg Neuts % (Manual) 50.0 % (40.0-70.0) 09/13/18 04:28 Band Neutrophils % 18.0 % 09/13/18 04:28 Lymphocytes % (Manual) 24.0 % (13.4-35.0) 09/13/18 04:28 Reactive Lymphs % (Man) 0 % 09/13/18 04:28 Monocytes % (Manual) 8.0 % (0.0-7.3) H 09/13/18 04:28 Eosinophils % (Manual) 0 % (0.0-4.3) 09/13/18 04:28 Basophils % (Manual) 0 % (0.0-1.8) 09/13/18 04:28 Metamyelocytes % 0 % 09/13/18 04:28 Myelocytes % 0 % 09/13/18 04:28 Promyelocytes % 0 % 09/13/18 04:28 Blast Cells % 0 % 09/13/18 04:28 Nucleated RBC % Not Reportable 09/13/18 04:28 Seg Neutrophils # Man 1.0 K/mm3 (1.8-7.7) L 09/13/18 04:28 Band Neutrophils # 0.4 K/mm3 09/13/18 04:28 Abs Lymphs (Manual) 309 cells/uL (850-3900) L 09/13/18 12:29 Lymphocytes # (Manual) 0.5 K/mm3 (1.2-5.4) L 09/13/18 04:28 Abs React Lymphs (Man) 0.0 K/mm3 09/13/18 04:28 Monocytes # (Manual) 0.2 K/mm3 (0.0-0.8) 09/13/18 04:28 Eosinophils # (Manual) 0.0 K/mm3 (0.0-0.4) 09/13/18 04:28 Basophils # (Manual) 0.0 K/mm3 (0.0-0.1) 09/13/18 04:28 Metamyelocytes # 0.0 K/mm3 09/13/18 04:28 Myelocytes # 0.0 K/mm3 09/13/18 04:28 Promyelocytes # 0.0 K/mm3 09/13/18 04:28 Blast Cells # 0.0 K/mm3 09/13/18 04:28 WBC Morphology Not Reportable 09/13/18 04:28 Hypersegmented Neuts Not Reportable 09/13/18 04:28 Hyposegmented Neuts Not Reportable 09/13/18 04:28 Hypogranular Neuts Not Reportable 09/13/18 04:28 Smudge Cells Not Reportable 09/13/18 04:28 Toxic Granulation Not Reportable 09/13/18 04:28 Toxic Vacuolation Not Reportable 09/13/18 04:28 Dohle Bodies Not Reportable 09/13/18 04:28 Pelger-Huet Anomaly Not Reportable 09/13/18 04:28 Giovanna Rods Not Reportable 09/13/18 04:28 Platelet Estimate Consistent w auto 09/13/18 04:28 Clumped Platelets Not Reportable 09/13/18 04:28 Plt Clumps, EDTA Not Reportable 09/13/18 04:28 Large Platelets Not Reportable 09/13/18 04:28 Giant Platelets Not Reportable 09/13/18 04:28 Platelet Satelliting Not Reportable 09/13/18 04:28 Plt Morphology Comment Not Reportable 09/13/18 04:28 RBC Morphology Not Reportable 09/13/18 04:28 Dimorphic RBCs Not Reportable 09/13/18 04:28 Polychromasia Not Reportable 09/13/18 04:28 Hypochromasia Not Reportable 09/13/18 04:28 Poikilocytosis Not Reportable 09/13/18 04:28 Anisocytosis 1+ 09/13/18 04:28 Microcytosis Rare 09/13/18 04:28 Macrocytosis Not Reportable 09/13/18 04:28 Spherocytes Not Reportable 09/13/18 04:28 Pappenheimer Bodies Not Reportable 09/13/18 04:28 Sickle Cells Not Reportable 09/13/18 04:28 Target Cells Not Reportable 09/13/18 04:28 Tear Drop Cells Not Reportable 09/13/18 04:28 Ovalocytes 1+ 09/13/18 04:28 Helmet Cells Not Reportable 09/13/18 04:28 [place] Bodies Not Reportable 09/13/18 04:28 [place] Rings Not Reportable 09/13/18 04:28 [place] Cells Not Reportable 09/13/18 04:28 Bite Cells Not Reportable 09/13/18 04:28 Crenated Cell Not Reportable 09/13/18 04:28 Elliptocytes Few 09/13/18 04:28 Acanthocytes (Spur) Not Reportable 09/13/18 04:28 Rouleaux Not Reportable 09/13/18 04:28 Hemoglobin C Crystals Not Reportable 09/13/18 04:28 Schistocytes Not Reportable 09/13/18 04:28 Malaria parasites Not Reportable 09/13/18 04:28 Kieran Bodies Not Reportable 09/13/18 04:28 Hem Pathologist Commnt No 09/13/18 04:28 PT 14.5 Sec. (12.2-14.9) 09/15/18 09:33 INR 1.09 (0.87-1.13) 09/15/18 09:33 POC ABG pH 7.367 (7.35-7.45) 09/16/18 15:43 POC ABG pCO2 29.3 (35-45) L 09/16/18 15:43 POC ABG pO2 70 (80-105) L 09/16/18 15:43 POC ABG HCO3 16.8 09/16/18 15:43 POC ABG Total CO2 18 09/16/18 15:43 POC ABG O2 Sat 94 09/16/18 15:43 POC ABG Base Excess -8 09/16/18 15:43 FiO2 21 % 09/16/18 15:43 Sodium 140 mmol/L (137-145) 09/17/18 05:13 Potassium 3.9 mmol/L (3.6-5.0) 09/17/18 05:13 Chloride 107.2 mmol/L (98-107) H 09/17/18 05:13 Carbon Dioxide 21 mmol/L (22-30) L 09/17/18 05:13 Anion Gap 16 mmol/L 09/17/18 05:13 BUN 3 mg/dL (9-20) L 09/17/18 05:13 Creatinine 0.7 mg/dL (0.8-1.5) L 09/17/18 05:13 Estimated GFR > 60 ml/min 09/17/18 05:13 BUN/Creatinine Ratio 4 % 09/17/18 05:13 Glucose 80 mg/dL (75-100) 09/17/18 05:13 POC Glucose 83 (70-105) 09/17/18 16:05 Lactic Acid 0.90 mmol/L (0.7-2.0) 09/11/18 20:17 Calcium 7.9 mg/dL (8.4-10.2) L 09/17/18 05:13 Total Bilirubin 0.20 mg/dL (0.1-1.2) 09/17/18 05:13 Direct Bilirubin < 0.2 mg/dL (0-0.2) 09/13/18 07:31 AST 40 units/L (5-40) 09/17/18 05:13 ALT 30 units/L (7-56) 09/17/18 05:13 Alkaline Phosphatase 50 units/L (35-129) 09/17/18 05:13 Ammonia 47.0 umol/L (25-60) 09/16/18 11:41 Total Protein 6.1 g/dL (6.3-8.2) L 09/17/18 05:13 Albumin 2.6 g/dL (3.9-5) L 09/17/18 05:13 Albumin/Globulin Ratio 0.7 % 09/17/18 05:13 Vitamin B12 934.5 pg/mL (211-911) H 09/16/18 11:41 TSH 4.210 mlU/mL (0.270-4.200) H 09/16/18 11:41 Free T4 0.72 ng/dL (0.76-1.46) L 09/16/18 11:41 Urine Color [place] (Yellow) 09/11/18 Unknown Urine Turbidity Clear (Clear) 09/11/18 Unknown Urine pH 5.0 (5.0-7.0) 09/11/18 Unknown Ur Specific [place] 1.016 (1.003-1.030) 09/11/18 Unknown Urine Protein <15 mg/dl mg/dL (Negative) 09/11/18 Unknown Urine Glucose (UA) Neg mg/dL (Negative) 09/11/18 Unknown Urine Ketones Neg mg/dL (Negative) 09/11/18 Unknown Urine Blood Sm (Negative) 09/11/18 Unknown Urine Nitrite Neg (Negative) 09/11/18 Unknown Urine Bilirubin Neg (Negative) 09/11/18 Unknown Urine Urobilinogen < 2.0 mg/dL (<2.0) 09/11/18 Unknown Ur Leukocyte Esterase Neg (Negative) 09/11/18 Unknown Urine WBC (Auto) 1.0 /HPF (0.0-6.0) 09/11/18 Unknown Urine RBC (Auto) 3.0 /HPF (0.0-6.0) 09/11/18 Unknown Urine Mucus Few /HPF 09/11/18 Unknown CSF Appearance Clear 09/15/18 Unknown CSF Color Colorless 09/15/18 Unknown CSF WBC 3 /mm3 (1-10) 09/15/18 Unknown CSF RBC 280 /mm3 (0-0) 09/15/18 Unknown CSF Seg Neutrophils 13.0 % (0-6) 09/15/18 Unknown CSF Lymphocytes % 74.0 % (40-80) 09/15/18 Unknown CSF Reactive Lymphs 0 % 09/15/18 Unknown CSF Monocytes % 13.0 % (15-45) 09/15/18 Unknown CSF Eosinophils % 0 % 09/15/18 Unknown CSF Basophils 0 % 09/15/18 Unknown CSF Pathologist Review C 09/15/18 Unknown CSF Glucose 23 mg/dL 09/15/18 Unknown CSF Total Protein 194 mg/dL 09/15/18 Unknown Urine Opiates Screen Presumptive negative 09/17/18 15:52 Urine Methadone Screen Presumptive negative 09/17/18 15:52 Ur Barbiturates Screen Presumptive negative 09/17/18 15:52 Ur Phencyclidine Scrn Presumptive negative 09/17/18 15:52 Ur Amphetamines Screen Presumptive negative 09/17/18 15:52 U Benzodiazepines Scrn Presumptive negative 09/17/18 15:52 Urine Cocaine Screen Presumptive negative 09/17/18 15:52 U Marijuana (THC) Screen Presumptive negative 09/17/18 15:52 Lymph Enumerat CD4/CD8 0.01 (0.86-5.00) L 09/13/18 12:29 % CD3 Cells 71 % (57-85) 09/13/18 12:29 Absolute CD3 Count 220 cells/uL (840-3060) L 09/13/18 12:29 % CD4 Cells 1 % (30-61) L 09/13/18 12:29 Absolute CD4 Count 4 cells/uL (490-1740) L 09/13/18 12:29 % CD8 Cells 70 % (12-42) H 09/13/18 12:29 Absolute CD8 Count 216 cells/uL (180-1170) 09/13/18 12:29 % CD19 Cells 17 % (6-29) 09/13/18 12:29 Absolute CD19 Count 54 cells/uL (110-660) L 09/13/18 12:29 RPR Titer 1:16 09/13/18 12:29 RPR Reactive (Nonreactive) 09/13/18 12:29 C. difficile Toxin A&B Negative (Negative) 09/12/18 05:30 Hepatitis A IgM Ab Non-reactive (NonReactive) 09/13/18 12:29 Hep Bs Antigen Non-reactive (Negative) 09/13/18 12:29 Hep B Core IgM Ab Non-reactive (NonReactive) 09/13/18 12:29 Hepatitis C Antibody Non-reactive (NonReactive) 09/13/18 12:29 HIV-1 Antibody See scanned result 09/11/18 19:14 HIV-1 RNA PCR copies/ml 80157 Copies/mL H 09/13/18 12:29 HIV-1 RNA (PCR) log 4.71 Log cps/mL H 09/13/18 12:29 HIV-2 Ab (Immunoblot) See scanned result 09/11/18 19:14 HIV 1&2 Antibody Rapid Reactive (Non React) 09/11/18 19:14 HIV P24 Antigen Non react (Non React) 09/11/18 19:14 Influenza A (Rapid) Negative (Negative) 09/13/18 16:05 Influenza A (RT-PCR) Negative (Negative) 09/13/18 16:05 Influenza B (Rapid) Negative (Negative) 09/13/18 16:05 Influenza B (RT-PCR) Negative (Negative) 09/13/18 16:05 Nutrition/Malnutrition Assess - Dietary Evaluation Nutrition/Malnutrition Findings: Nutrition Notes Start: 09/12/18 17:45 Freq: Status: Active Protocol: Document 09/17/18 08:15 LP (Rec: 09/17/18 08:17 LP [id number]) Nutrition Notes Need for Assessment generated from: MD Order Initial or Follow up Reassessment Other Pertinent Diagnosis Newly dx HIV, Bilat pneu Current Diet Regular Labs/Tests Reviewed Pertinent Medications Reviewed Height 6 ft Weight 102.4 kg [place] Body Weight (kg) 80.90 BMI 30.6 Subjective/Other Information Consult for poor oral intake. Unable to see pt at this time. Burn Absent Trauma Absent #1 Nutrition Diagnosis Malnutrition Diagnosis Progress(for reassessment Continues documentation) Is patient on ventilator? No Is Patient Ambulatory and/or Out of Bed Yes REE-([place]-St. Jeor-ambulatory/OOB) [ 2609.100 NUTR.[id number]] Kcal/Kg value to use for calculation 21 Approximate Energy Requirements Using 2150 kcal/Kg Calculation Used for Recommendations Kcal/kg Additional Notes Pro needs 0.8-1g/kg adjBW: 73- 91g/day Fluid needs 1ml/kcal Nutrition Intervention Change Diet Order: Continue current diet order Add Supplement/Snack (indicate name/kcal Ensure Enlive BID /protein ) Provides kCal: 700 Provides Protein (gm) 40 Goal #1 PO intake of meals to meet at least 75% of energy and pro needs Anticipated Discharge Needs: Regular diet with ONS as needed Follow-Up By: 09/19/18 Additional Comments Follow for intakes and ONS tolerance
[2018-09-18] MEDS: BACTRIM 400 MG in D5W 500 ML IV SCH ×5 (00:01→23:29)
[2018-09-18] MEDS: FLAGYL 500 MG/100 ML 500 MG/100 ML BAG IV SCH ×3 (05:38→21:30)
[2018-09-18] MEDS: PROVENTIL IH SCH ×3 (09:05→20:20)
--- NOTE | 2018-09-18 09:58 | Progress Note ---
Assessment and Plan Assessment and plan: Sepsis. Present on admission.. Continue IV antibiotics. Now on Ceftriaxone, azithromycin, Fluconazole HIV/AIDS. New diagnosis. I informed him of results and discussed with him. He states he has a male partner with whom he has unprotected anal sex. ID Physician following. He was evaluated and labs ordered CD 4 couunt of 4 Pneumonia Continue iv Abx. Severe weight loss. May be due to HIV Pancreatic lesion. Consulted GI Physician, he was evaluated Gastroenteritis. Follow-up stool studies. Continue Zosyn and Flagyl C. diff neg Giardiasis Syphilis RPR positive Diarrhea. C.diff neg Oral thrush. Fluconazole Toxic metabolic encephalopathy. he is confused, lethargic Lumbar puncture done, CSF analysed severe malnutrition. consulted Dietitian Bradycardia of 35, transient, associated with 2nd degree AV block, transient, seen on Tele Now resolved Obtain EKG stat. Obtain Echo, Consult cardiology Repeat TSH,FT4 Full code status Discussed with Sister, Daily in [place], over phone yesterday 09/17/18 and also on 09/16/18. I told her patient has pneumonia, sepsis, severe diarrhea. I did not tell her about HIV/AIDS because of patient confidentiality. Also discussed eith Risk Management about case few days ago. History Interval history: Severe weight loss Diarrhea Nausea, vomiting fever Confusion lethargy Called by Nurse for bradycardia of 35 Hospitalist Physical - Physical exam Narrative exam: GEN: Not in acute distress, lying in bed HEENT: Normocephalic, atraumatic, Neck: supple, No JVD Lungs: Bilateral coarse breath sounds, likely transmitted sounds, no wheeze Heart:S1 and S2 regular, no murmurs, rubs or gallop, Abd:soft, non tender, non distended, normal bowel sounds Ext: No edema, no clubbing or cyanosis Neuro: Lethargic, confused, moves all extremities - Constitutional Vitals: Temp Pulse Resp BP Pulse Ox 99.2 F 89 20 100/57 97 09/18/18 05:47 09/17/18 23:46 09/18/18 05:47 09/18/18 05:47 09/18/18 07:58 General appearance: Present: no acute distress Results - Labs CBC & Chem 7: 09/17/18 05:13 09/17/18 05:13 Labs: Laboratory Last Values WBC 2.0 K/mm3 (4.5-11.0) L 09/17/18 05:13 RBC 3.88 M/mm3 (3.65-5.03) 09/17/18 05:13 Hgb 10.9 gm/dl (11.8-15.2) L 09/17/18 05:13 Hct 32.7 % (35.5-45.6) L 09/17/18 05:13 MCV 84 fl (84-94) 09/17/18 05:13 MCH 28 pg (28-32) 09/17/18 05:13 MCHC 33 % (32-34) 09/17/18 05:13 RDW 14.0 % (13.2-15.2) 09/17/18 05:13 Plt Count 147 K/mm3 (140-440) 09/17/18 05:13 [place] % (Auto) Assistant Superintendent For Curriculum 09/11/18 18:00 Add Manual Diff Complete 09/13/18 04:28 Total Counted 50 09/13/18 04:28 Seg Neuts % (Manual) 50.0 % (40.0-70.0) 09/13/18 04:28 Band Neutrophils % 18.0 % 09/13/18 04:28 Lymphocytes % (Manual) 24.0 % (13.4-35.0) 09/13/18 04:28 Reactive Lymphs % (Man) 0 % 09/13/18 04:28 Monocytes % (Manual) 8.0 % (0.0-7.3) H 09/13/18 04:28 Eosinophils % (Manual) 0 % (0.0-4.3) 09/13/18 04:28 Basophils % (Manual) 0 % (0.0-1.8) 09/13/18 04:28 Metamyelocytes % 0 % 09/13/18 04:28 Myelocytes % 0 % 09/13/18 04:28 Promyelocytes % 0 % 09/13/18 04:28 Blast Cells % 0 % 09/13/18 04:28 Nucleated RBC % Not Reportable 09/13/18 04:28 Seg Neutrophils # Man 1.0 K/mm3 (1.8-7.7) L 09/13/18 04:28 Band Neutrophils # 0.4 K/mm3 09/13/18 04:28 Abs Lymphs (Manual) 309 cells/uL (850-3900) L 09/13/18 12:29 Lymphocytes # (Manual) 0.5 K/mm3 (1.2-5.4) L 09/13/18 04:28 Abs React Lymphs (Man) 0.0 K/mm3 09/13/18 04:28 Monocytes # (Manual) 0.2 K/mm3 (0.0-0.8) 09/13/18 04:28 Eosinophils # (Manual) 0.0 K/mm3 (0.0-0.4) 09/13/18 04:28 Basophils # (Manual) 0.0 K/mm3 (0.0-0.1) 09/13/18 04:28 Metamyelocytes # 0.0 K/mm3 09/13/18 04:28 Myelocytes # 0.0 K/mm3 09/13/18 04:28 Promyelocytes # 0.0 K/mm3 09/13/18 04:28 Blast Cells # 0.0 K/mm3 09/13/18 04:28 WBC Morphology Not Reportable 09/13/18 04:28 Hypersegmented Neuts Not Reportable 09/13/18 04:28 Hyposegmented Neuts Not Reportable 09/13/18 04:28 Hypogranular Neuts Not Reportable 09/13/18 04:28 Smudge Cells Not Reportable 09/13/18 04:28 Toxic Granulation Not Reportable 09/13/18 04:28 Toxic Vacuolation Not Reportable 09/13/18 04:28 Dohle Bodies Not Reportable 09/13/18 04:28 Pelger-Huet Anomaly Not Reportable 09/13/18 04:28 Giovanna Rods Not Reportable 09/13/18 04:28 Platelet Estimate Consistent w auto 09/13/18 04:28 Clumped Platelets Not Reportable 09/13/18 04:28 Plt Clumps, EDTA Not Reportable 09/13/18 04:28 Large Platelets Not Reportable 09/13/18 04:28 Giant Platelets Not Reportable 09/13/18 04:28 Platelet Satelliting Not Reportable 09/13/18 04:28 Plt Morphology Comment Not Reportable 09/13/18 04:28 RBC Morphology Not Reportable 09/13/18 04:28 Dimorphic RBCs Not Reportable 09/13/18 04:28 Polychromasia Not Reportable 09/13/18 04:28 Hypochromasia Not Reportable 09/13/18 04:28 Poikilocytosis Not Reportable 09/13/18 04:28 Anisocytosis 1+ 09/13/18 04:28 Microcytosis Rare 09/13/18 04:28 Macrocytosis Not Reportable 09/13/18 04:28 Spherocytes Not Reportable 09/13/18 04:28 Pappenheimer Bodies Not Reportable 09/13/18 04:28 Sickle Cells Not Reportable 09/13/18 04:28 Target Cells Not Reportable 09/13/18 04:28 Tear Drop Cells Not Reportable 09/13/18 04:28 Ovalocytes 1+ 09/13/18 04:28 Helmet Cells Not Reportable 09/13/18 04:28 [place] Bodies Not Reportable 09/13/18 04:28 [place] Rings Not Reportable 09/13/18 04:28 [place] Cells Not Reportable 09/13/18 04:28 Bite Cells Not Reportable 09/13/18 04:28 Crenated Cell Not Reportable 09/13/18 04:28 Elliptocytes Few 09/13/18 04:28 Acanthocytes (Spur) Not Reportable 09/13/18 04:28 Rouleaux Not Reportable 09/13/18 04:28 Hemoglobin C Crystals Not Reportable 09/13/18 04:28 Schistocytes Not Reportable 09/13/18 04:28 Malaria parasites Not Reportable 09/13/18 04:28 Kieran Bodies Not Reportable 09/13/18 04:28 Hem Pathologist Commnt No 09/13/18 04:28 PT 14.5 Sec. (12.2-14.9) 09/15/18 09:33 INR 1.09 (0.87-1.13) 09/15/18 09:33 POC ABG pH 7.367 (7.35-7.45) 09/16/18 15:43 POC ABG pCO2 29.3 (35-45) L 09/16/18 15:43 POC ABG pO2 70 (80-105) L 09/16/18 15:43 POC ABG HCO3 16.8 09/16/18 15:43 POC ABG Total CO2 18 09/16/18 15:43 POC ABG O2 Sat 94 09/16/18 15:43 POC ABG Base Excess -8 09/16/18 15:43 FiO2 21 % 09/16/18 15:43 Sodium 140 mmol/L (137-145) 09/17/18 05:13 Potassium 3.9 mmol/L (3.6-5.0) 09/17/18 05:13 Chloride 107.2 mmol/L (98-107) H 09/17/18 05:13 Carbon Dioxide 21 mmol/L (22-30) L 09/17/18 05:13 Anion Gap 16 mmol/L 09/17/18 05:13 BUN 3 mg/dL (9-20) L 09/17/18 05:13 Creatinine 0.7 mg/dL (0.8-1.5) L 09/17/18 05:13 Estimated GFR > 60 ml/min 09/17/18 05:13 BUN/Creatinine Ratio 4 % 09/17/18 05:13 Glucose 80 mg/dL (75-100) 09/17/18 05:13 POC Glucose 108 (70-105) H 09/17/18 21:57 Lactic Acid 0.90 mmol/L (0.7-2.0) 09/11/18 20:17 Calcium 7.9 mg/dL (8.4-10.2) L 09/17/18 05:13 Total Bilirubin 0.20 mg/dL (0.1-1.2) 09/17/18 05:13 Direct Bilirubin < 0.2 mg/dL (0-0.2) 09/13/18 07:31 AST 40 units/L (5-40) 09/17/18 05:13 ALT 30 units/L (7-56) 09/17/18 05:13 Alkaline Phosphatase 50 units/L (35-129) 09/17/18 05:13 Ammonia 47.0 umol/L (25-60) 09/16/18 11:41 Total Protein 6.1 g/dL (6.3-8.2) L 09/17/18 05:13 Albumin 2.6 g/dL (3.9-5) L 09/17/18 05:13 Albumin/Globulin Ratio 0.7 % 09/17/18 05:13 Vitamin B12 934.5 pg/mL (211-911) H 09/16/18 11:41 TSH 4.210 mlU/mL (0.270-4.200) H 09/16/18 11:41 Free T4 0.72 ng/dL (0.76-1.46) L 09/16/18 11:41 Urine Color [place] (Yellow) 09/11/18 Unknown Urine Turbidity Clear (Clear) 09/11/18 Unknown Urine pH 5.0 (5.0-7.0) 09/11/18 Unknown Ur Specific [place] 1.016 (1.003-1.030) 09/11/18 Unknown Urine Protein <15 mg/dl mg/dL (Negative) 09/11/18 Unknown Urine Glucose (UA) Neg mg/dL (Negative) 09/11/18 Unknown Urine Ketones Neg mg/dL (Negative) 09/11/18 Unknown Urine Blood Sm (Negative) 09/11/18 Unknown Urine Nitrite Neg (Negative) 09/11/18 Unknown Urine Bilirubin Neg (Negative) 09/11/18 Unknown Urine Urobilinogen < 2.0 mg/dL (<2.0) 09/11/18 Unknown Ur Leukocyte Esterase Neg (Negative) 09/11/18 Unknown Urine WBC (Auto) 1.0 /HPF (0.0-6.0) 09/11/18 Unknown Urine RBC (Auto) 3.0 /HPF (0.0-6.0) 09/11/18 Unknown Urine Mucus Few /HPF 09/11/18 Unknown CSF Appearance Clear 09/15/18 Unknown CSF Color Colorless 09/15/18 Unknown CSF WBC 3 /mm3 (1-10) 09/15/18 Unknown CSF RBC 280 /mm3 (0-0) 09/15/18 Unknown CSF Seg Neutrophils 13.0 % (0-6) 09/15/18 Unknown CSF Lymphocytes % 74.0 % (40-80) 09/15/18 Unknown CSF Reactive Lymphs 0 % 09/15/18 Unknown CSF Monocytes % 13.0 % (15-45) 09/15/18 Unknown CSF Eosinophils % 0 % 09/15/18 Unknown CSF Basophils 0 % 09/15/18 Unknown CSF Pathologist Review C 09/15/18 Unknown CSF Glucose 23 mg/dL 09/15/18 Unknown CSF Total Protein 194 mg/dL 09/15/18 Unknown Urine Opiates Screen Presumptive negative 09/17/18 15:52 Urine Methadone Screen Presumptive negative 09/17/18 15:52 Ur Barbiturates Screen Presumptive negative 09/17/18 15:52 Ur Phencyclidine Scrn Presumptive negative 09/17/18 15:52 Ur Amphetamines Screen Presumptive negative 09/17/18 15:52 U Benzodiazepines Scrn Presumptive negative 09/17/18 15:52 Urine Cocaine Screen Presumptive negative 09/17/18 15:52 U Marijuana (THC) Screen Presumptive negative 09/17/18 15:52 Drugs of Abuse Note Disclamer 09/17/18 15:52 Lymph Enumerat CD4/CD8 0.01 (0.86-5.00) L 09/13/18 12:29 % CD3 Cells 71 % (57-85) 09/13/18 12:29 Absolute CD3 Count 220 cells/uL (840-3060) L 09/13/18 12:29 % CD4 Cells 1 % (30-61) L 09/13/18 12:29 Absolute CD4 Count 4 cells/uL (490-1740) L 09/13/18 12:29 % CD8 Cells 70 % (12-42) H 09/13/18 12:29 Absolute CD8 Count 216 cells/uL (180-1170) 09/13/18 12:29 % CD19 Cells 17 % (6-29) 09/13/18 12:29 Absolute CD19 Count 54 cells/uL (110-660) L 09/13/18 12:29 RPR Titer 1:16 09/13/18 12:29 RPR Reactive (Nonreactive) 09/13/18 12:29 T.pallidum Ab (FTA-ABS) Reactive (Nonreactive) H 09/14/18 16:34 C. difficile Toxin A&B Negative (Negative) 09/12/18 05:30 Hepatitis A IgM Ab Non-reactive (NonReactive) 09/13/18 12:29 Hep Bs Antigen Non-reactive (Negative) 09/13/18 12:29 Hep B Core IgM Ab Non-reactive (NonReactive) 09/13/18 12:29 Hepatitis C Antibody Non-reactive (NonReactive) 09/13/18 12:29 HIV-1 Antibody See scanned result 09/11/18 19:14 HIV-1 RNA PCR copies/ml [id number] Copies/mL H 09/13/18 12:29 HIV-1 RNA (PCR) log 4.71 Log cps/mL H 09/13/18 12:29 HIV-2 Ab (Immunoblot) See scanned result 09/11/18 19:14 HIV 1&2 Antibody Rapid Reactive (Non React) 09/11/18 19:14 HIV P24 Antigen Non react (Non React) 09/11/18 19:14 Influenza A (Rapid) Negative (Negative) 09/13/18 16:05 Influenza A (RT-PCR) Negative (Negative) 09/13/18 16:05 Influenza B (Rapid) Negative (Negative) 09/13/18 16:05 Influenza B (RT-PCR) Negative (Negative) 09/13/18 16:05 Nutrition/Malnutrition Assess - Dietary Evaluation Nutrition/Malnutrition Findings: Nutrition Notes Start: 09/12/18 17:45 Freq: Status: Active Protocol: Document 09/17/18 08:15 LP (Rec: 09/17/18 08:17 LP [id number]) Nutrition Notes Need for Assessment generated from: MD Order Initial or Follow up Reassessment Other Pertinent Diagnosis Newly dx HIV, Bilat pneu Current Diet Regular Labs/Tests Reviewed Pertinent Medications Reviewed Height 6 ft Weight 102.4 kg [place] Body Weight (kg) 80.90 BMI 30.6 Subjective/Other Information Consult for poor oral intake. Unable to see pt at this time. Burn Absent Trauma Absent #1 Nutrition Diagnosis Malnutrition Diagnosis Progress(for reassessment Continues documentation) Is patient on ventilator? No Is Patient Ambulatory and/or Out of Bed Yes REE-([facility]-ambulatory/OOB) [ 2609.100 NUTR.[id number]] Kcal/Kg value to use for calculation 21 Approximate Energy Requirements Using 2150 kcal/Kg Calculation Used for Recommendations Kcal/kg Additional Notes Pro needs 0.8-1g/kg adjBW: 73- 91g/day Fluid needs 1ml/kcal Nutrition Intervention Change Diet Order: Continue current diet order Add Supplement/Snack (indicate name/kcal Ensure Enlive BID /protein ) Provides kCal: 700 Provides Protein (gm) 40 Goal #1 PO intake of meals to meet at least 75% of energy and pro needs Anticipated Discharge Needs: Regular diet with ONS as needed Follow-Up By: 09/19/18 Additional Comments Follow for intakes and ONS tolerance
--- NOTE | 2018-09-18 10:32 | Progress Note ---
<ANAYELI EMERSON - Last Filed: 09/18/18 13:58> Assessment and Plan ' Cultures 09/11/2018 Blood: no growth to date 09/13/2018 Serum: Crytococcol negative 09/13/2018 Giardi Antigen: positive 09/13/2018 Crytosporidum: negative 09/13/2018 Stool WBC: negative 33 y/o male with no PMH; admitted on 09/11/2018 due to nausea, voimiting, diarrhea, weight loss and cough: 1. Severe sepsis: present on admission Improved; etio. bilateral pneumonia +/- gastroenteritis in the setting of newly diagnosed HIV. Blood culture 09/11/2018 no growth. 2. Bilateral pneumonia: likely PJP pneumonia in light of HIV infection, other posibilities-CAP, Influenza. CXR showed RUL pneumonia. CT abd showed bibasilar patchy infiltrates. -Influenza PCR negative 3. Diarrhea: ? colitis in immunocompromised patient ?bacterial, parasite, viral 4.Oral candidiasis 5. Weight loss: likely from HIV/AIDS, should r/o malignancy 6. HIV, newly diagninosed with presumed AIDS: given oral candidiasis and presumed PJP pneumonia. 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 He did not use condom consistently .-RPR Positive. Will order LP to evaluate +/- neuro syphilis -VL 50.700/ CD4 1 7. SOB/hypoxemia: from pneumonia 8. Elevated LFTs: due to severe sepsis ? eval for viral hepatitis ? pancreatic mass. CT abdomen showed enlarged uncinate process of the pancreas incompletely evaluated. Abdominal u/s shows cholelithiasis. No evidence for acute cholecystitis. Hep A,B,C -negative 9 .Neutropenia/thrombocytopenia: HIV myelosuppression, should r/o disseminated MAC 10. Acute Encephalopathy; increased confusion and disorientation with time and self, now restrained. +/- neuro syphilis,, Will f/u VDRL. If neurosyphilis is diagnosed will add Aqueous crystalline Penicillin G IV for 14 days. If VDRL in CSF is not reactive will do Penicillin benzathine 2.4 million units IM once weekly x 3 weeks. Follow up EEG per neurology. Brain MRI - No acute CVA or brain mass. Left maxillary and bilateral sphenoid sinus retention cyst, suggesting of abnormal signal in the partially visualized right partoid gland, may be artifact of slightly oblique imaging. DDX included edema, inflammation or infection. Recs: continue ceftriaxone, azithromycin to cover CAP, D3 or D5 continue bactrim IV to cover PJP for 21 days continue fluconazole for oral candidiasis for 14 days -continue Flagyl 500mg, IV q 8 to cover Giardi f/u AFB-blood culture to r/o disseminated MAC f/u blood cultures -f/u fluoroscopy guided lumbar puncture to evaluate neuro syphilis -f/u CSF VDRL- pending -CSF for CMV DNA PCR and YAYO virus PCR -Toxo IGG in serum -CMV-DNA PCR in serum -F/u EEG per neurology Anayeli Emerson NP [facility] M: [phone] O:[phone] Subjective Date of service: 09/18/18 Principal diagnosis: elevated LFTs/abnormal CT Interval history: Patient seen and examined. Increased confusion. Follow simple commands. Increased WOB . Nurses notes, labs and reports reviewed, discussed with patient. Objective - Exam Narrative Exam: Constitutional: acute Encephalopathy Head, Ears, Nose: Normocephalic, atraumatic. External ears, nose normal Eyes: Conjunctivae/corneas clear. No icterus. No ptosis. Neck:no JVD, left anterior neck large hard nodule non tender Oral: + thrush improving Cardiovascular: tachycardic Respiratory: Increased WOB, Course Rhonci throughout, 02@ 6L NC GI: Soft, non-tender; bowel sounds normal. No peritoneal signs Musculoskeletal: No pedal edema, no cyanosis. Skin: No rash or abscess. Hem/Lymphatic: No palpable cervical or supraclavicular nodes. No lymphangitis Psych: confused, mostly nonverbal Neurological: increased confusion and disorientation to self , place and time. - Constitutional Vitals: Vital Signs Temp Pulse Resp BP Pulse Ox 99.2 F 89 20 100/57 97 09/18/18 05:47 09/17/18 23:46 09/18/18 05:47 09/18/18 05:47 09/18/18 07:58 Temperature -Last 24 Hours Temperature 99.2 F Temperature 98.1 F Temperature 98.8 F Temperature 98.4 F - Labs CBC & Chem 7: 09/17/18 05:13 09/17/18 05:13 Labs: Abnormal lab results 09/14/18 09/17/18 Range/Units 16:34 21:57 POC Glucose 108 H (70-105) T.pallidum Ab (FTA-ABS) Reactive H (Nonreactive) <CLIFF TSANG - Last Filed: 09/18/18 15:03> Objective - Constitutional Vitals: Vital Signs Temp Pulse Resp BP Pulse Ox 99.2 F 105 H 22 120/70 99 09/18/18 12:55 09/18/18 14:56 09/18/18 14:56 09/18/18 12:55 09/18/18 15:01 Temperature -Last 24 Hours Temperature 99.2 F Temperature 99.2 F Temperature 98.1 F Temperature 98.8 F - Labs CBC & Chem 7: 09/17/18 05:13 09/17/18 05:13 Labs: Abnormal lab results 09/14/18 09/17/18 09/18/18 Range/Units 16:34 21:57 12:46 POC Glucose 108 H (70-105) TSH (0.270-4.200) mlU/mL Free T4 0.75 L (0.76-1.46) ng/dL T.pallidum Ab (FTA-ABS) Reactive H (Nonreactive) 09/18/18 Range/Units 12:46 POC Glucose (70-105) TSH 5.190 H (0.270-4.200) mlU/mL Free T4 (0.76-1.46) ng/dL T.pallidum Ab (FTA-ABS) (Nonreactive)
[2018-09-18] MEDS: SODIUM CHLORIDE FLUSH SYRINGE 10 ML IV SCH ×2 (12:23→21:31)
[2018-09-18] MEDS: ZITHROMAX 500 MG in NACL 0.9% 250ML 250 ML IV SCH (12:25)
--- NOTE | 2018-09-18 13:01 | Event Note ---
Date: 09/18/18 Code MET called to Echo lab, because he was slow responding. Patient has had lethargy, confusion. He is hemodynamically stable. At current baseline. Blood glucose 92. Will return to room.
[2018-09-18] MEDS: ROCEPHIN/NS 2 GM/100 ML 2 GM/100 ML BAG IV SCH (13:23)
--- NOTE | 2018-09-18 14:47 | Consultation ---
History of Present Illness Consult date: 09/18/18 Consult reason: bradycardia History of present illness: Called for cardiology consult because was noted to have transient bradycardia on telemetry.Patient did not have any symptoms. Past History Past Medical History: No medical history, HIV/AIDS, other (reviewed) Past Surgical History: No surgical history, Other (reviewed) Social history: single, lives with family, smoking, other (alcohol ). denies: prescription drug abuse Family history: no significant family history (reviewed) Medications and Allergies Allergies Allergy/AdvReac Type Severity Reaction Status Date / Time No Known Allergies Allergy Unverified 09/11/18 17:50 Active Meds: Active Medications Acetaminophen (Tylenol) 650 mg PO Q4H PRN PRN Reason: Pain MILD(1-3)/Fever >100.5/RIVERA Last Admin: 09/12/18 03:57 Dose: 650 mg Documented by: Albuterol (Proventil) 2.5 mg IH Q4HRT PRN PRN Reason: Shortness Of Breath Last Admin: 09/16/18 06:09 Dose: 2.5 mg Documented by: Albuterol (Proventil) 2.5 mg IH TIDRT [facility] Last Admin: 09/18/18 09:05 Dose: 2.5 mg Documented by: Azithromycin 500 mg/ Sodium (Chloride) 250 mls @ 250 mls/hr IV Q24HR [facility] Last Admin: 09/18/18 12:25 Dose: 250 mls/hr Documented by: Fluconazole (Diflucan) 200 mls @ 100 mls/hr IV Q24HR [facility]; Protocol Last Admin: 09/17/18 11:03 Dose: 100 mls/hr Documented by: Ceftriaxone Sodium (Rocephin/Ns 2 Gm/100 Ml) 2 gm in 100 mls @ 200 mls/hr IV Q24HR [facility] Last Admin: 09/18/18 13:23 Dose: 200 mls/hr Documented by: Trimethoprim/Sulfamethoxazole (400 mg/ Dextrose) 525 mls @ 350 mls/hr IV Q6HR [facility] Last Admin: 09/18/18 13:23 Dose: 350 mls/hr Documented by: Metronidazole (Flagyl 500 Mg/100 Ml) 500 mg in 100 mls @ 100 mls/hr IV Q8HR [facility]; Protocol Last Admin: 09/18/18 05:38 Dose: 100 mls/hr Documented by: Ondansetron HCl (Zofran) 4 mg IV Q8H PRN PRN Reason: Nausea And Vomiting Sodium Chloride (Sodium Chloride Flush Syringe 10 Ml) 10 ml IV BID [facility] Last Admin: 09/18/18 12:23 Dose: 10 ml Documented by: Sodium Chloride (Sodium Chloride Flush Syringe 10 Ml) 10 ml IV PRN PRN PRN Reason: LINE FLUSH Review of Systems Constitutional: weakness Ears, nose, mouth and throat: no ear discharge Cardiovascular: no chest pain Respiratory: cough with sputum Gastrointestinal: no abdominal pain Genitourinary Male: no hematuria Musculoskeletal: no low back pain Neurological: no syncope Psychiatric: no memory loss Allergic/Immunologic: no urticaria Physical Examination Vital Signs Temp Pulse BP Pulse Ox 98.5 F 136 H 89/54 99 09/11/18 17:47 09/11/18 17:47 09/11/18 17:47 09/11/18 17:47 Gurgling sounds noted in throat. General appearance: mild distress HEENT: Positive: PERRL Neck: Positive: trachea midline Cardiac: Positive: Reg Rate and Rhythm Lungs: Positive: Decreased Breath Sounds, Rales Neuro: Positive: Grossly Intact Abdomen: Positive: Unremarkable Male genitourinary: Positive: deferred Skin: Negative: Rash Extremities: Present: edema Results 09/17/18 05:13 09/17/18 05:13 EKG interpretations - Telemetry EKG Rhythm: Sinus Rhythm (WNL.) - EKG Sinus rhythms and dysrhythmias: sinus rhythm, sinus arrest or pause (Patient had very transient junctional rythm at rate of 35/mt,with sinus pause,lasted< one minute,reverted to judson S.R at >90/mt at 08:12 AM,09/18/2018.) Assessment and Plan Patient had very transient bradycardia,< 1minute with sinus pause and junctional escape rythm,reverted back to S.R immediately. Most likely this may be related to respiratory insufficiency with gurgling sounds in throat with depressed consciousness. Would recommend clearing of respiratory suctioning amd monitoring respiratory status.No active intervention cardiac horn. Echo was ordered.
[2018-09-18] MEDS: DIFLUCAN 200 ML IV SCH ×2 (15:06→19:37)
[2018-09-18] MEDS ORDERED: LASIX IV STA (15:43)
[2018-09-18] MEDS: LEVAQUIN 750MG/150ML 750 MG/150 ML BAG IV SCH (15:54)
--- NOTE | 2018-09-18 16:50 | XRay Report ---
FINAL REPORT EXAM: XR CHEST 1V AP HISTORY: infiltrate COMPARISON: Chest radiograph performed on 09/17/2018 TECHNIQUE: Single frontal view of the chest FINDINGS: The cardiomediastinal silhouette is normal in appearance. Unchanged opacities in the right upper lobe. Low lung volumes with para vascular crowding. No pleural effusion or pneumothorax. No acute bony or soft tissue abnormality. IMPRESSION: Unchanged infiltrate in the right upper lobe.
--- NOTE | 2018-09-18 17:35 | Event Note ---
Date: 09/18/18 Physician Attestation: Seen and examined with CONTROL DIRECTOR Erika. Agree with her documentation. Patient remains without fever however noted persistent somnolent, confusion and increasing SOB. Repeat CXR RUL infiltrate. MRI brain negative. CFS VDRL, YAYO virus and CMV are pending. Neuro on board. 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 So far no evidence of [employer] infections but high CSF protein that could be due to HIV per se. Brain MRI did not showed changes for toxoplasmosis or PML. Cryptococcal antigen in CSF negative. At this point the etiology of is AMS is unclear. I am going to start treatment for neurosyphilis with penicillin G. Will repeat LP tomorrow AM and re-send wbc, diff, glucose, protein, crypto ag and VDRL. If YAYO and CMV PCR has not been sent will re-order. Will stop ceftriaxone and daily azithromycin. Will change bactrim to PO to decrease amount of fluids. Per nursing staff he is eating. The etiology of SOB may be multifactorial - pneumonia which was felt to be PJP but now with RUL infiltrate ? aspiration pneumonia. But also should r/o volume overload. Agree with Pulmonary consult and TTE. Consider chest CT. Discussed with Dr Baltazar. Alayna Strickland MD
[2018-09-18] MEDS ORDERED: PFIZERPEN IV SCH (18:00)
[2018-09-18] MEDS: TRANSDERM-SCOP TD SCH (19:43)
[2018-09-18] MEDS: PFIZERPEN 2.5 MIL.UNITS in NACL 0.9% 50 ML IV SCH ×2 (20:26→23:29)
--- NOTE | 2018-09-18 21:38 | Consultation ---
CARDIOLOGY CONSULTATION HISTORY OF PRESENT ILLNESS: The patient is a 33-year-old gentleman who was admitted with nausea and multiple episodes of vomiting and loose stools of 5 days duration on 09/11/2018. Apparently, he lost 100 pounds of weight in the last 6 months, was brought to the hospital by family for further evaluation. Blood pressure at the time of presentation was found to be 84/54 with acidosis. Apparently, no significant past medical history. A diagnosis of gastroenteritis was made. The patient was found to be leukopenic. HIV was found to be positive, which is a new diagnosis. Seen by Infectious disease organizational development consultant and also CT of the abdomen showed small bibasilar patchy infiltrates consistent with pneumonia. The patient apparently also confused at times. Diagnosed by psychiatrist was major depressive disorder, recurrent, severe without psychosis. The patient was evaluated by slabber light for elevated liver function tests. Hepatitis panel was negative. CT of the abdomen has showed some enlarged uncinate process of the pancreas. Also, the patient has oral candidiasis for which he is on fluconazole. The patient had lumbar puncture performed on 09/15/2018. A 16 mL of clear CSF was obtained. Also, the patient was noted to have acute encephalopathy with confusion and disorientation. The patient was evaluated by neurologist, who diagnosed him to have Delirium. CSF with low white count and glucose, recommended antibiotic regimen and further followup on EEG. DIAGNOSES: The patient's diagnoses included severe sepsis from bilateral pneumonia and gastroenteritis, improved with blood cultures showing no growth. The patient's Giardia antigen was positive. JOB# [id number] DIEGO/SEAN
--- NOTE | 2018-09-18 23:12 | Consultation ---
History of Present Illness Consult date: 09/18/18 Reason for consult: other (Nausea, vomiting and hypotension.) History of present illness: PULMONARY AND CRITICAL CARE CONSULTATION DR. MESA THANK YOU FOR ASKING US TO PRTICIPATE IN THE CARE OF THIS PATIENT 33 YO Male present to ED that he has experienced nausea, multiple episodes of vomiting, and multiple episodes of loose stools over the past 5 days with persistent symptoms over the same time frame. Pt acknowledges nearly 100lbs weight loss over the past 6 months. Pt transported to [facility] by his family for further care and evaluation. Pt seen and evaluated in ED and found to have Sepsis with a blood pressure of 84/54, Acidosis, and intractible nausea and vomiting. Pt admitted and initiated on sepsis protocol. Pt denies fever, chills, CP, Palpitations, Trauma, BRBPR, Headache, vision changes, skin rash, or recent known ill contacts. Patient neutropenic. WBC count 2.1. Infectious diseases conulted. Patient is on multiple antibiotics. Patient is on Levaquin, penicillin, bactrim ,Metronidazole and zithromax and Fluconazole. . Past History Past Medical History: No medical history, HIV/AIDS, other (reviewed) Past Surgical History: No surgical history, Other (reviewed) Social history: single, lives with family, smoking, other (alcohol ). denies: prescription drug abuse Family history: no significant family history (reviewed) Medications and Allergies Allergies Allergy/AdvReac Type Severity Reaction Status Date / Time No Known Allergies Allergy Unverified 09/11/18 17:50 Active Meds: Active Medications Acetaminophen (Tylenol) 650 mg PO Q4H PRN PRN Reason: Pain MILD(1-3)/Fever >100.5/RIVERA Last Admin: 09/12/18 03:57 Dose: 650 mg Documented by: Albuterol (Proventil) 2.5 mg IH Q4HRT PRN PRN Reason: Shortness Of Breath Last Admin: 09/16/18 06:09 Dose: 2.5 mg Documented by: Albuterol (Proventil) 2.5 mg IH TIDRT GIA Last Admin: 09/18/18 20:20 Dose: 2.5 mg Documented by: Azithromycin (Zithromax) 1,200 mg PO [place] [facility]IA Fluconazole (Diflucan) 200 mls @ 100 mls/hr IV Q24HR [facility]; Protocol Last Admin: 09/18/18 19:37 Dose: 100 mls/hr Documented by: Trimethoprim/Sulfamethoxazole (400 mg/ Dextrose) 525 mls @ 350 mls/hr IV Q6HR [facility] Last Admin: 09/18/18 18:30 Dose: 350 mls/hr Documented by: Metronidazole (Flagyl 500 Mg/100 Ml) 500 mg in 100 mls @ 100 mls/hr IV Q8HR [facility]; Protocol Last Admin: 09/18/18 21:30 Dose: 100 mls/hr Documented by: Levofloxacin/Dextrose (Levaquin 750mg/150ml) 750 mg in 150 mls @ 100 mls/hr IV Q24HR [facility]; Protocol Last Admin: 09/18/18 15:54 Dose: 100 mls/hr Documented by: Penicillin G Potassium 2.5 mil (.units/ Sodium Chloride) 50 mls @ 100 mls/hr IV Q4H [facility] Last Admin: 09/18/18 20:26 Dose: 100 mls/hr Documented by: Levothyroxine Sodium (Synthroid) 25 mcg PO DAILY@0600 [facility] Ondansetron HCl (Zofran) 4 mg IV Q8H PRN PRN Reason: Nausea And Vomiting Scopolamine (Transderm-Scop) 1 each TD Q3D [facility] Last Admin: 09/18/18 19:43 Dose: 1 each Documented by: Sodium Chloride (Sodium Chloride Flush Syringe 10 Ml) 10 ml IV BID [facility] Last Admin: 09/18/18 21:31 Dose: 10 ml Documented by: Sodium Chloride (Sodium Chloride Flush Syringe 10 Ml) 10 ml IV PRN PRN PRN Reason: LINE FLUSH Review of Systems All systems: negative Physical Examination Vital signs: Vital Signs Temp Pulse BP Pulse Ox 98.5 F 136 H 89/54 99 09/11/18 17:47 09/11/18 17:47 09/11/18 17:47 09/11/18 17:47 General appearance: alert, appears uncomfortable Eyes: non-icteric ENT: oropharynx dry Neck: supple, no JVD Ascultation: Bilateral: rhonchi Cardiovascular: regular rate and rhythm Gastrointestinal: normoactive bowel sounds, soft, non-tender Integumentary: normal Extremities: no cyanosis, no edema Musculoskeletal: no deformities Gait: other (Patient weak and in the bed.) pupils equal and round, CN II-XII normal depressed Results - Laboratory Findings CBC and BMP: 09/19/18 04:57 09/19/18 04:57 ABG POC ABG pH 7.367 (7.35-7.45) 09/16/18 15:43 POC ABG pCO2 29.3 (35-45) L 09/16/18 15:43 POC ABG pO2 70 (80-105) L 09/16/18 15:43 POC ABG HCO3 16.8 09/16/18 15:43 POC ABG Total CO2 18 09/16/18 15:43 POC ABG O2 Sat 94 09/16/18 15:43 PT/INR, D-dimer PT 14.5 Sec. (12.2-14.9) 09/15/18 09:33 INR 1.09 (0.87-1.13) 09/15/18 09:33 Abnormal lab findings: Abnormal Labs 09/11/18 09/11/18 09/11/18 18:00 18:00 18:00 WBC 1.9 L* Hgb Hct Plt Count 130 L Monocytes % (Manual) 16.0 H Seg Neutrophils # Man 0.9 L Abs Lymphs (Manual) Lymphocytes # (Manual) 0.5 L POC ABG pCO2 POC ABG pO2 Sodium 131 L Potassium Chloride Carbon Dioxide 17 L BUN 21 H Creatinine Glucose 126 H POC Glucose Lactic Acid 2.60 H* Calcium 8.1 L AST 123 H ALT 115 H Total Protein Albumin 3.0 L Vitamin B12 TSH Free T4 CSF VDRL Lymph Enumerat CD4/CD8 Absolute CD3 Count % CD4 Cells Absolute CD4 Count % CD8 Cells Absolute CD19 Count T.pallidum Ab (FTA-ABS) HIV-1 RNA PCR copies/ml HIV-1 RNA (PCR) log 09/11/18 09/13/18 09/13/18 19:01 04:28 07:31 WBC 2.0 L Hgb Hct Plt Count 116 L Monocytes % (Manual) 8.0 H Seg Neutrophils # Man 1.0 L Abs Lymphs (Manual) Lymphocytes # (Manual) 0.5 L POC ABG pCO2 POC ABG pO2 Sodium Potassium Chloride 110.4 H Carbon Dioxide 19 L BUN Creatinine Glucose POC Glucose Lactic Acid 3.70 H* Calcium 7.9 L AST ALT Total Protein Albumin Vitamin B12 TSH Free T4 CSF VDRL Lymph Enumerat CD4/CD8 Absolute CD3 Count % CD4 Cells Absolute CD4 Count % CD8 Cells Absolute CD19 Count T.pallidum Ab (FTA-ABS) HIV-1 RNA PCR copies/ml HIV-1 RNA (PCR) log 09/13/18 09/13/18 09/13/18 07:31 12:29 12:29 WBC Hgb Hct Plt Count Monocytes % (Manual) Seg Neutrophils # Man Abs Lymphs (Manual) 309 L Lymphocytes # (Manual) POC ABG pCO2 POC ABG pO2 Sodium Potassium Chloride Carbon Dioxide BUN Creatinine Glucose POC Glucose Lactic Acid Calcium AST 70 H ALT 68 H Total Protein Albumin 2.5 L Vitamin B12 TSH Free T4 CSF VDRL Lymph Enumerat CD4/CD8 0.01 L Absolute CD3 Count 220 L % CD4 Cells 1 L Absolute CD4 Count 4 L % CD8 Cells 70 H Absolute CD19 Count 54 L T.pallidum Ab (FTA-ABS) HIV-1 RNA PCR copies/ml 10248 H HIV-1 RNA (PCR) log 4.71 H 09/14/18 09/14/18 09/15/18 07:17 16:34 05:05 WBC 1.6 L* Hgb 10.4 L Hct 31.1 L D Plt Count 113 L Monocytes % (Manual) Seg Neutrophils # Man Abs Lymphs (Manual) Lymphocytes # (Manual) POC ABG pCO2 POC ABG pO2 Sodium Potassium 3.4 L Chloride Carbon Dioxide 18 L BUN Creatinine Glucose 104 H POC Glucose Lactic Acid Calcium 7.6 L AST 49 H ALT Total Protein Albumin 2.5 L Vitamin B12 TSH Free T4 CSF VDRL Lymph Enumerat CD4/CD8 Absolute CD3 Count % CD4 Cells Absolute CD4 Count % CD8 Cells Absolute CD19 Count T.pallidum Ab (FTA-ABS) Reactive H HIV-1 RNA PCR copies/ml HIV-1 RNA (PCR) log 09/15/18 09/15/18 09/16/18 05:05 Unknown 06:55 WBC 2.8 L Hgb 10.9 L Hct 33.5 L Plt Count 135 L Monocytes % (Manual) Seg Neutrophils # Man Abs Lymphs (Manual) Lymphocytes # (Manual) POC ABG pCO2 POC ABG pO2 Sodium Potassium Chloride 107.9 H Carbon Dioxide 18 L BUN 6 L Creatinine Glucose POC Glucose Lactic Acid Calcium 7.4 L AST ALT Total Protein Albumin Vitamin B12 TSH Free T4 CSF VDRL Reactive 1:8 H Lymph Enumerat CD4/CD8 Absolute CD3 Count % CD4 Cells Absolute CD4 Count % CD8 Cells Absolute CD19 Count T.pallidum Ab (FTA-ABS) HIV-1 RNA PCR copies/ml HIV-1 RNA (PCR) log 09/16/18 09/16/18 09/16/18 11:41 11:41 11:41 WBC Hgb Hct Plt Count Monocytes % (Manual) Seg Neutrophils # Man Abs Lymphs (Manual) Lymphocytes # (Manual) POC ABG pCO2 POC ABG pO2 Sodium Potassium Chloride Carbon Dioxide BUN Creatinine Glucose POC Glucose Lactic Acid Calcium AST ALT Total Protein Albumin Vitamin B12 934.5 H TSH 4.210 H Free T4 0.72 L CSF VDRL Lymph Enumerat CD4/CD8 Absolute CD3 Count % CD4 Cells Absolute CD4 Count % CD8 Cells Absolute CD19 Count T.pallidum Ab (FTA-ABS) HIV-1 RNA PCR copies/ml HIV-1 RNA (PCR) log 09/16/18 09/17/18 09/17/18 15:43 05:13 05:13 WBC 2.0 L Hgb 10.9 L Hct 32.7 L Plt Count Monocytes % (Manual) Seg Neutrophils # Man Abs Lymphs (Manual) Lymphocytes # (Manual) POC ABG pCO2 29.3 L POC ABG pO2 70 L Sodium Potassium Chloride 107.2 H Carbon Dioxide 21 L BUN 3 L Creatinine 0.7 L Glucose POC Glucose Lactic Acid Calcium 7.9 L AST ALT Total Protein 6.1 L Albumin 2.6 L Vitamin B12 TSH Free T4 CSF VDRL Lymph Enumerat CD4/CD8 Absolute CD3 Count % CD4 Cells Absolute CD4 Count % CD8 Cells Absolute CD19 Count T.pallidum Ab (FTA-ABS) HIV-1 RNA PCR copies/ml HIV-1 RNA (PCR) log 09/17/18 09/18/18 09/18/18 21:57 12:46 12:46 WBC Hgb Hct Plt Count Monocytes % (Manual) Seg Neutrophils # Man Abs Lymphs (Manual) Lymphocytes # (Manual) POC ABG pCO2 POC ABG pO2 Sodium Potassium Chloride Carbon Dioxide BUN Creatinine Glucose POC Glucose 108 H Lactic Acid Calcium AST ALT Total Protein Albumin Vitamin B12 TSH 5.190 H Free T4 0.75 L CSF VDRL Lymph Enumerat CD4/CD8 Absolute CD3 Count % CD4 Cells Absolute CD4 Count % CD8 Cells Absolute CD19 Count T.pallidum Ab (FTA-ABS) HIV-1 RNA PCR copies/ml HIV-1 RNA (PCR) log - Diagnostic Findings Chest x-ray: report reviewed (rEPORTED RIGHT UPPER LOBE INFILTRATE.), image reviewed Assessment and Plan 33 YO Male present to ED that he has experienced nausea, multiple episodes of vomiting, and multiple episodes of loose stools over the past 5 days with persistent symptoms over the same time frame. Pt acknowledges nearly 100lbs weight loss over the past 6 months. Pt transported to [facility] by his family for further care and evaluation. Pt seen and evaluated in ED and found to have Sepsis with a blood pressure of 84/54, Acidosis, and intractible nausea and vomiting. Pt admitted and initiated on sepsis protocol. Pt denies fever, chills, CP, Palpitations, Trauma, BRBPR, Headache, vision changes, skin rash, or recent known ill contacts Patient neutropenic. WBC count 2.1. Infectious diseases conulted. Patient is on multiple antibiotics. Patient is on Levaquin, penicillin, bactrim ,Metronidazole and zithromax and Fluconazole. . - Patient Problems (1) Right upper lobe pulmonary infiltrate Current Visit: Yes Status: Acute Plan to address problem: Patient is on Levaquin, penicillin, bactrim ,Metronidazole and zithromax and Fluconazole. Antibiotics as per infectious diseases. (2) Acidosis Current Visit: No Status: Acute Plan to address problem: Anion gap still high.18. Supplementing Sodium BICARB. (3) Sepsis Current Visit: Yes Status: Acute Plan to address problem: Patient is on Levaquin, penicillin, bactrim ,Metronidazole and zithromax and Fluconazole. Antibiotics as per infectious diseases. (4) HIV (human immunodeficiency virus infection) Current Visit: Yes Status: Chronic Plan to address problem: Management as per infectious diseases.
[2018-09-19] MEDS: PFIZERPEN 2.5 MIL.UNITS in NACL 0.9% 50 ML IV SCH ×2 (03:36→11:39)
[2018-09-19] MEDS: FLAGYL 500 MG/100 ML 500 MG/100 ML BAG IV SCH (05:06)
[2018-09-19] MEDS: SYNTHROID PO SCH (05:14)
[2018-09-19 06:01] LABS: Hematocrit 34.2 % (35.5-45.6); Hemoglobin 11.4 gm/dl (11.8-15.2); Mean Corpuscular HGB Conc 33 % (32-34); Mean Corpuscular Volume 84 fl (84-94); Platelet Count 151 K/mm3 (140-440); Red Blood Count 4.05 M/mm3 (3.65-5.03); Red Cell Distribution Width 13.8 % (13.2-15.2)
[2018-09-19] MEDS: BACTRIM 400 MG in D5W 500 ML IV SCH (06:18)
[2018-09-19 06:27] LABS: BUN/Creatinine Ratio 7; Blood Urea Nitrogen 6 mg/dL (9-20); Calcium 7.9 mg/dL (8.4-10.2); Hemolysis Index 8
[2018-09-19] MEDS: PROVENTIL IH SCH ×3 (08:26→21:23)
--- NOTE | 2018-09-19 08:56 | Progress Note ---
Assessment and Plan ' Cultures 09/11/2018 Blood: no growth to date 09/13/2018 Serum: Crytococcol negative 09/13/2018 Giardi Antigen: positive 09/13/2018 Crytosporidum: negative 09/13/2018 Stool WBC: negative 09/13/2018: Stool: Nona 33 y/o male with no PMH; admitted on 09/11/2018 due to nausea, voimiting, d iarrhea, weight loss and cough: 1. Severe sepsis: present on admission Improved; etio. bilateral pneumonia +/- gastroenteritis in the setting of newly diagnosed HIV. Blood culture 09/11/2018 no growth. 2. Bilateral pneumonia: likely PJP pneumonia in light of HIV infection, other posibilities-CAP, Influenza. CXR showed RUL pneumonia. CT abd showed bibasilar patchy infiltrates. Worsening SOB.. The etiology of SOB may be multifactorial - pneumonia which was felt to be PJP but now with RUL infiltrate ? aspiration pneumonia. But also should r/o volume overload. Pulmonary following -Influenza PCR negative 3. Diarrhea: ? Resolved . colitis in immunocompromised patient ?bacterial, parasite, viral 4.Oral candidiasis 5. Weight loss: likely from HIV/AIDS, should r/o malignancy 6. HIV, newly diagninosed with presumed AIDS: given oral candidiasis and presumed PJP pneumonia. 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 He did not use condom consistently .-RPR Positive. Will order LP to evaluate +/- neuro syphilis -VL 50.700/ CD4 4 7. SOB/hypoxemia: from pneumonia 8. Elevated LFTs: due to severe sepsis ? eval for viral hepatitis ? pancreatic mass. CT abdomen showed enlarged uncinate process of the pancreas incompletely evaluated. Abdominal u/s shows cholelithiasis. No evidence for acute cholecystitis. Hep A,B,C -negative 9 .Neutropenia/thrombocytopenia: HIV myelosuppression, should r/o disseminated MAC 10. 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 So far no evidence of LENS GRINDER infections but high CSF protein that could be due to HIV per se. Brain MRI did not showed changes for toxoplasmosis or PML. Cryptococcal antigen in CSF negative. At this point the etiology of is AMS is unclear. Will start treatment for neurosyphilis with penicillin G. Reorder LP. Follow up EEG per neurology. Brain MRI - No acute CVA or brain mass. Left maxillary and bilateral sphenoid sinus retention cyst, suggesting of abnormal signal in the partially visualized right partoid gland, may be artifact of slightly oblique imaging. DDX included edema, inflammation or infection. 11. Transient Bradycardia: < 1minute with sinus pause and junctional escape rythm,reverted back to S.R immediately.Most likely this may be related to r espiratory insufficiency with gurgling sounds in throat with depressed consciousness- Cardiology following Recs: Discontinue ceftriaxone, Continue azithromycin at 2 tabs once a week Discontinue bactrim IV, Start Bactrim 2 tabs TID to cover PJP for 21 days, D7 of D21 continue fluconazole for oral candidiasis for 14 days, D7 of D14 -continue Flagyl 500mg, IV q 8 to cover Giardi, D7 Start Levaquin to cover Pneumonia which was thought to be PJP but now with RUL infiltrate, Aspiration Pneumonia? Start Penicillian G, 2.5 Mil q 4H empirically for neuro syphilis,, D2 LP reordered resend wbc, diff, glucose, protein, crypto ag and VDRL, YAYO and CMV PCR -F/u EEG per neurology -f/u TTE d/w Dr. Marco A James, INFRASTRUCTURE SOFTWARE ENGINEER [facility] M: [phone] O:[phone] Subjective Date of service: 09/19/18 Principal diagnosis: elevated LFTs/abnormal CT Interval history: Patient seen and examined. Increased confusion. Follow simple commands. Increased WOB . Nurses notes, labs and reports reviewed, discussed with patient. Objective - Exam Narrative Exam: Constitutional: acute Encephalopathy Head, Ears, Nose: Normocephalic, atraumatic. External ears, nose normal Eyes: Conjunctivae/corneas clear. No icterus. No ptosis. Neck:no JVD, left anterior neck large hard nodule non tender Oral: + thrush improving Cardiovascular: tachycardic Respiratory: Increased WOB, Course Rhonci throughout, 02@ 6L NC GI: Soft, non-tender; bowel sounds normal. No peritoneal signs Musculoskeletal: No pedal edema, no cyanosis. Skin: No rash or abscess. Hem/Lymphatic: No palpable cervical or supraclavicular nodes. No lymphangitis Psych: confused, mostly nonverbal Neurological: increased confusion and disorientation to self , place and time. - Constitutional Vitals: Vital Signs Temp Pulse Resp BP Pulse Ox 98.4 F 100 H 20 113/55 94 09/19/18 06:03 09/19/18 08:37 09/19/18 08:37 09/19/18 06:03 09/19/18 08:28 Temperature -Last 24 Hours Temperature 98.4 F Temperature 98.6 F Temperature 98.8 F Temperature 99.2 F - Labs CBC & Chem 7: 09/19/18 04:57 09/19/18 04:57 Labs: Abnormal lab results 09/15/18 09/18/18 09/18/18 Range/Units Unknown 12:46 12:46 WBC (4.5-11.0) K/mm3 Hgb (11.8-15.2) gm/dl Hct (35.5-45.6) % Carbon Dioxide (22-30) mmol/L BUN (9-20) mg/dL Calcium (8.4-10.2) mg/dL TSH 5.190 H (0.270-4.200) mlU/mL Free T4 0.75 L (0.76-1.46) ng/dL CSF VDRL Reactive 1:8 H (Nonreactive) 09/19/18 09/19/18 Range/Units 04:57 04:57 WBC 2.1 L (4.5-11.0) K/mm3 Hgb 11.4 L (11.8-15.2) gm/dl Hct 34.2 L (35.5-45.6) % Carbon Dioxide 19 L (22-30) mmol/L BUN 6 L (9-20) mg/dL Calcium 7.9 L (8.4-10.2) mg/dL TSH (0.270-4.200) mlU/mL Free T4 (0.76-1.46) ng/dL CSF VDRL (Nonreactive)
[2018-09-19] MEDS: DIFLUCAN 200 ML IV SCH (11:38)
[2018-09-19] MEDS: SODIUM CHLORIDE FLUSH SYRINGE 10 ML IV SCH (11:51)
[2018-09-19] MEDS: LEVAQUIN 750MG/150ML 750 MG/150 ML BAG IV SCH (12:13)
--- NOTE | 2018-09-19 12:37 | Progress Note ---
Assessment and Plan Patient had very transient bradycardia, <1minute with sinus pause and junctional escape rythm,reverted back to S.R immediately. Most likely this may be related to respiratory insufficiency with gurgling sounds in throat with depressed consciousness. Currently stable cardiac status. No acute events noted on telemetry overnight. Echo reviewed - normal LV, no significant valvular abnormalities. Thyroid profile c/w hypothyroidism - further eval/management per primary. Cont telemetry. The patient has been seen in conjunction with Dr. Sorto who agrees with the assessment and plan of care. - Patient Problems (1) Sepsis Current Visit: Yes Status: Acute (2) HIV (human immunodeficiency virus infection) Current Visit: Yes Status: Chronic (3) AIDS Current Visit: Yes Status: Suspected (4) Neutropenia Current Visit: Yes Status: Acute (5) Pneumonia Current Visit: Yes Status: Acute (6) Diarrhea Current Visit: Yes Status: Acute (7) Bradycardia Current Visit: Yes Status: Acute (8) Hypothyroidism Current Visit: Yes Status: Suspected (9) Encephalopathy Current Visit: Yes Status: Acute Subjective Date of service: 09/19/18 Principal diagnosis: elevated LFTs/abnormal CT Interval history: pt resting in bed, lethargic, no current cardiac complaints. tele reviewed - SR with no acute events noted overnight. Objective Last Vital Signs Temp 98.4 F 09/19/18 06:03 Pulse 100 H 09/19/18 08:37 Resp 20 09/19/18 08:37 BP 113/55 09/19/18 06:03 Pulse Ox 94 09/19/18 08:28 - Physical Examination General: Other (lethargic) HEENT: Positive: PERRL Neck: Positive: trachea midline Cardiac: Positive: Reg Rate and Rhythm, S1/S2 Lungs: Positive: Decreased Breath Sounds, Rhonchi Neuro: Positive: Grossly Intact Abdomen: Positive: Unremarkable Skin: Negative: Rash Extremities: Present: edema - Labs and Meds CBC 09/19/18 Range/Units 04:57 WBC 2.1 L (4.5-11.0) K/mm3 RBC 4.05 (3.65-5.03) M/mm3 Hgb 11.4 L (11.8-15.2) gm/dl Hct 34.2 L (35.5-45.6) % Plt Count 151 (140-440) K/mm3 Comprehensive Metabolic Panel 09/19/18 Range/Units 04:57 Sodium 138 (137-145) mmol/L Potassium 4.3 (3.6-5.0) mmol/L Chloride 105.2 (98-107) mmol/L Carbon Dioxide 19 L (22-30) mmol/L BUN 6 L (9-20) mg/dL Creatinine 0.9 (0.8-1.5) mg/dL Glucose 82 (75-100) mg/dL Calcium 7.9 L (8.4-10.2) mg/dL - Imaging and Cardiology Echo: report reviewed - Telemetry EKG Rhythm: Sinus Rhythm - EKG Sinus rhythms and dysrhythmias: sinus rhythm, sinus arrest or pause (Patient had very transient junctional rythm at rate of 35/mt,with sinus pause,lasted< one minute,reverted to judson S.R at >90/mt at 08:12 AM,09/18/2018.)
[2018-09-19] MEDS ORDERED: XYLOCAINE 1% 20 mL ONE (14:05)
--- NOTE | 2018-09-19 14:37 | Cat Scan Report ---
FINAL REPORT EXAM: CT CHEST W CON HISTORY: Acute resp failure TECHNIQUE: CT of chest with IV contrast. Coronal and sagittal reconstructed images provided. PRIORS: None currently available. FINDINGS: Focal consolidation in the right lower lobe. Scattered infiltrates in the right upper and left lower lobe. No pneumothorax. No endobronchial lesions. Trace right pleural effusion. Main pulmonary artery is unremarkable. No aortic aneurysm. No dissection. Major branch arteries are grossly unremarkable. Mild cardiomegaly. No pericardial effusion. Some coronary artery disease. There is no axillary adenopathy. There is no hilar or mediastinal mass or adenopathy. Images of the esophagus are unremarkable. No suspicious osseous lesions on this limited examination of the skeleton. Metastatic disease better evaluated with bone scan. IMPRESSION: Pulmonary findings suggest pneumonia, aspiration, or acute pneumonitis.
--- NOTE | 2018-09-19 15:24 | Procedure Note ---
Date of procedure: 09/19/18 Pre-op diagnosis: ams Post-op diagnosis: same Procedure: lumbar puncture Anesthesia: local Surgeon: JOHN RAJAN Estimated blood loss: none Pathology: list (spinal fluid) Specimen disposition: to lab Condition: stable Disposition: floor
--- NOTE | 2018-09-19 15:29 | Fluoroscopy Report ---
Lumbar puncture: Fluoroscopy was performed for needle guidance. The patient was placed prone on the fluoroscopic table. Infection protocol was utilized. The back was draped and cleansed with Betadine. An entrance site was marked on the skin and 1% lidocaine used for local anesthesia. Under fluoroscopic observation a 20-gauge needle was successfully placed into the subarachnoid space at L3. Approximately 8 cc of clear fluid was removed into 3 separate vials and sent to the lab for evaluation as requested. There were no apparent patient complications although the patient has a significantly altered mental status. The patient was returned to his room.
[2018-09-19 15:47] LABS: Glucose,CSF 32 mg/dL
[2018-09-19] MEDS ORDERED: SIMPLE SYRUP FEEDTUBE PRN ×2 (15:54)
[2018-09-19] MEDS ORDERED: SODIUM BICARBONATE FEEDTUBE PRN (15:54)
[2018-09-19] MEDS ORDERED: PANCREAZE DR 10,500 UNIT FEEDTUBE PRN (15:54)
[2018-09-19] MEDS ORDERED: PFIZERPEN IV SCH (16:00)
[2018-09-19] MEDS ORDERED: NACL IV SCH (16:00)
[2018-09-19 16:22] LABS: Appearance,CSF Clear
[2018-09-19 16:23] LABS: Red Blood Cell,CSF 583 /mm3 (0-0); White Blood Cell,CSF 4 /mm3 (1-10)
[2018-09-19 17:09] LABS: Basophils CSF 0 %; Total Cells Counted 28 /mm3
[2018-09-19] MEDS: FLAGYL PO SCH ×2 (17:09→18:00)
[2018-09-19] MEDS: BACTRIM DS PO SCH ×2 (17:10→18:00)
[2018-09-19] MEDS: PFIZERPEN 12 MIL.UNITS in NACL 0.9% 250ML 250 ML IV SCH (17:13)
--- NOTE | 2018-09-19 17:22 | Progress Note ---
Assessment and Plan Assessment and plan: Patient is 33 yo initially presented with diarrhea, found to have pneumonia, sepsis, HIV/AIDS(new diagnosis) with CD4 count of 4. He was started on Bactrim for poss PCP. His mental status has worsened with confusion, lethargy. LP done . He is diagnosed with neurosyphilis. Started on Penicillin. Closest family is sister in [place], and I spoke to her several times about diagnosis but did not tell her about HIV/AIDS because of patient confidentiality. She calls everyday for updates and is likely coming to [place] Wednesday09/23/18 to see him. Sepsis. Present on admission.. Continue IV antibiotics. Now on Ceftriaxone, azithromycin, Fluconazole HIV/AIDS. New diagnosis. I informed him of results and discussed with him. He states he has a male partner with whom he has unprotected anal sex. ID Physician following. CD 4 count of 4 Neurosyphilis. Started Penicillin Toxic metabolic encephalopathy due to neurosyphilis Lethargic, confused LP done X 2 Pneumonia possibly PCP pneumonia Continue iv Abx Cont Bactrim for presumed PCP Severe weight loss. May be due to HIV Pancreatic lesion. Consulted GI Physician, he was evaluated Gastroenteritis. Giardia positive C. diff neg Giardiasis Syphilis RPR positive Diarrhea. C.diff neg Oral thrush. Fluconazole severe malnutrition. consulted Dietitian Bradycardia of 35, transient, associated with 2nd degree AV block, transient, seen on Tele Now resolved Consulted cardiology Repeat TSH,FT4 Hypothyroidism. Started Levothyroxine Full code status Dysphagia Failed swallow test NPO Tube feeding Discussed with Sister, Daily in [place], over phone 09/17/18 and also on 09/16/18. I told her patient has pneumonia, sepsis, severe diarrhea. I did not tell her about HIV/AIDS because of patient confidentiality. Also discussed with Risk Management about case few days ago. Attempted to call sister twice on 09/19/17 but went to voice mail. Prognosis guarded History Interval history: Severe weight loss Diarrhea Nausea, vomiting fever Confusion lethargy Hospitalist Physical - Physical exam Narrative exam: GEN: Not in acute distress, lying in bed,obese HEENT: Normocephalic, atraumatic, Neck: supple, No JVD Lungs: Bilateral coarse breath sounds, likely transmitted sounds, no wheeze Heart:S1 and S2 regular, no murmurs, rubs or gallop, Abd:soft, non tender, non distended, normal bowel sounds Ext: No edema, no clubbing or cyanosis Neuro: Lethargic, confused, moves all extremities - Constitutional Vitals: Temp Pulse Resp BP Pulse Ox 97.9 F 98 H 20 111/65 94 09/19/18 12:30 09/19/18 16:02 09/19/18 16:02 09/19/18 12:30 09/19/18 08:28 Results - Labs CBC & Chem 7: 09/19/18 04:57 09/19/18 04:57 Labs: Laboratory Last Values WBC 2.1 K/mm3 (4.5-11.0) L 09/19/18 04:57 RBC 4.05 M/mm3 (3.65-5.03) 09/19/18 04:57 Hgb 11.4 gm/dl (11.8-15.2) L 09/19/18 04:57 Hct 34.2 % (35.5-45.6) L 09/19/18 04:57 MCV 84 fl (84-94) 09/19/18 04:57 MCH 28 pg (28-32) 09/19/18 04:57 MCHC 33 % (32-34) 09/19/18 04:57 RDW 13.8 % (13.2-15.2) 09/19/18 04:57 Plt Count 151 K/mm3 (140-440) 09/19/18 04:57 [place] % (Auto) Marketing Analyst 09/11/18 18:00 Add Manual Diff Complete 09/13/18 04:28 Total Counted 50 09/13/18 04:28 Seg Neuts % (Manual) 50.0 % (40.0-70.0) 09/13/18 04:28 Band Neutrophils % 18.0 % 09/13/18 04:28 Lymphocytes % (Manual) 24.0 % (13.4-35.0) 09/13/18 04:28 Reactive Lymphs % (Man) 0 % 09/13/18 04:28 Monocytes % (Manual) 8.0 % (0.0-7.3) H 09/13/18 04:28 Eosinophils % (Manual) 0 % (0.0-4.3) 09/13/18 04:28 Basophils % (Manual) 0 % (0.0-1.8) 09/13/18 04:28 Metamyelocytes % 0 % 09/13/18 04:28 Myelocytes % 0 % 09/13/18 04:28 Promyelocytes % 0 % 09/13/18 04:28 Blast Cells % 0 % 09/13/18 04:28 Nucleated RBC % Not Reportable 09/13/18 04:28 Seg Neutrophils # Man 1.0 K/mm3 (1.8-7.7) L 09/13/18 04:28 Band Neutrophils # 0.4 K/mm3 09/13/18 04:28 Abs Lymphs (Manual) 309 cells/uL (850-3900) L 09/13/18 12:29 Lymphocytes # (Manual) 0.5 K/mm3 (1.2-5.4) L 09/13/18 04:28 Abs React Lymphs (Man) 0.0 K/mm3 09/13/18 04:28 Monocytes # (Manual) 0.2 K/mm3 (0.0-0.8) 09/13/18 04:28 Eosinophils # (Manual) 0.0 K/mm3 (0.0-0.4) 09/13/18 04:28 Basophils # (Manual) 0.0 K/mm3 (0.0-0.1) 09/13/18 04:28 Metamyelocytes # 0.0 K/mm3 09/13/18 04:28 Myelocytes # 0.0 K/mm3 09/13/18 04:28 Promyelocytes # 0.0 K/mm3 09/13/18 04:28 Blast Cells # 0.0 K/mm3 09/13/18 04:28 WBC Morphology Not Reportable 09/13/18 04:28 Hypersegmented Neuts Not Reportable 09/13/18 04:28 Hyposegmented Neuts Not Reportable 09/13/18 04:28 Hypogranular Neuts Not Reportable 09/13/18 04:28 Smudge Cells Not Reportable 09/13/18 04:28 Toxic Granulation Not Reportable 09/13/18 04:28 Toxic Vacuolation Not Reportable 09/13/18 04:28 Dohle Bodies Not Reportable 09/13/18 04:28 Pelger-Huet Anomaly Not Reportable 09/13/18 04:28 Giovanna Rods Not Reportable 09/13/18 04:28 Platelet Estimate Consistent w auto 09/13/18 04:28 Clumped Platelets Not Reportable 09/13/18 04:28 Plt Clumps, EDTA Not Reportable 09/13/18 04:28 Large Platelets Not Reportable 09/13/18 04:28 Giant Platelets Not Reportable 09/13/18 04:28 Platelet Satelliting Not Reportable 09/13/18 04:28 Plt Morphology Comment Not Reportable 09/13/18 04:28 RBC Morphology Not Reportable 09/13/18 04:28 Dimorphic RBCs Not Reportable 09/13/18 04:28 Polychromasia Not Reportable 09/13/18 04:28 Hypochromasia Not Reportable 09/13/18 04:28 Poikilocytosis Not Reportable 09/13/18 04:28 Anisocytosis 1+ 09/13/18 04:28 Microcytosis Rare 09/13/18 04:28 Macrocytosis Not Reportable 09/13/18 04:28 Spherocytes Not Reportable 09/13/18 04:28 Pappenheimer Bodies Not Reportable 09/13/18 04:28 Sickle Cells Not Reportable 09/13/18 04:28 Target Cells Not Reportable 09/13/18 04:28 Tear Drop Cells Not Reportable 09/13/18 04:28 Ovalocytes 1+ 09/13/18 04:28 Helmet Cells Not Reportable 09/13/18 04:28 [place] Bodies Not Reportable 09/13/18 04:28 [place] Rings Not Reportable 09/13/18 04:28 Left Hand Cells Not Reportable 09/13/18 04:28 Bite Cells Not Reportable 09/13/18 04:28 Crenated Cell Not Reportable 09/13/18 04:28 Elliptocytes Few 09/13/18 04:28 Acanthocytes (Spur) Not Reportable 09/13/18 04:28 Rouleaux Not Reportable 09/13/18 04:28 Hemoglobin C Crystals Not Reportable 09/13/18 04:28 Schistocytes Not Reportable 09/13/18 04:28 Malaria parasites Not Reportable 09/13/18 04:28 Kieran Bodies Not Reportable 09/13/18 04:28 Hem Pathologist Commnt No 09/13/18 04:28 PT 14.5 Sec. (12.2-14.9) 09/15/18 09:33 INR 1.09 (0.87-1.13) 09/15/18 09:33 POC ABG pH 7.367 (7.35-7.45) 09/16/18 15:43 POC ABG pCO2 29.3 (35-45) L 09/16/18 15:43 POC ABG pO2 70 (80-105) L 09/16/18 15:43 POC ABG HCO3 16.8 09/16/18 15:43 POC ABG Total CO2 18 09/16/18 15:43 POC ABG O2 Sat 94 09/16/18 15:43 POC ABG Base Excess -8 09/16/18 15:43 FiO2 21 % 09/16/18 15:43 Sodium 138 mmol/L (137-145) 09/19/18 04:57 Potassium 4.3 mmol/L (3.6-5.0) 09/19/18 04:57 Chloride 105.2 mmol/L (98-107) 09/19/18 04:57 Carbon Dioxide 19 mmol/L (22-30) L 09/19/18 04:57 Anion Gap 18 mmol/L 09/19/18 04:57 BUN 6 mg/dL (9-20) L 09/19/18 04:57 Creatinine 0.9 mg/dL (0.8-1.5) 09/19/18 04:57 Estimated GFR > 60 ml/min 09/19/18 04:57 BUN/Creatinine Ratio 7 % 09/19/18 04:57 Glucose 82 mg/dL (75-100) 09/19/18 04:57 POC Glucose 93 (70-105) 09/19/18 12:45 Lactic Acid 0.90 mmol/L (0.7-2.0) 09/11/18 20:17 Calcium 7.9 mg/dL (8.4-10.2) L 09/19/18 04:57 Total Bilirubin 0.20 mg/dL (0.1-1.2) 09/17/18 05:13 Direct Bilirubin < 0.2 mg/dL (0-0.2) 09/13/18 07:31 AST 40 units/L (5-40) 09/17/18 05:13 ALT 30 units/L (7-56) 09/17/18 05:13 Alkaline Phosphatase 50 units/L (35-129) 09/17/18 05:13 Ammonia 47.0 umol/L (25-60) 09/16/18 11:41 NT-Pro-B Natriuret Pep 145.9 pg/mL (0-450) 09/18/18 16:07 Total Protein 6.1 g/dL (6.3-8.2) L 09/17/18 05:13 Albumin 2.6 g/dL (3.9-5) L 09/17/18 05:13 Albumin/Globulin Ratio 0.7 % 09/17/18 05:13 Vitamin B12 934.5 pg/mL (211-911) H 09/16/18 11:41 TSH 5.190 mlU/mL (0.270-4.200) H 09/18/18 12:46 Free T4 0.75 ng/dL (0.76-1.46) L 09/18/18 12:46 Urine Color [place] (Yellow) 09/11/18 Unknown Urine Turbidity Clear (Clear) 09/11/18 Unknown Urine pH 5.0 (5.0-7.0) 09/11/18 Unknown Ur Specific [place] 1.016 (1.003-1.030) 09/11/18 Unknown Urine Protein <15 mg/dl mg/dL (Negative) 09/11/18 Unknown Urine Glucose (UA) Neg mg/dL (Negative) 09/11/18 Unknown Urine Ketones Neg mg/dL (Negative) 09/11/18 Unknown Urine Blood Sm (Negative) 09/11/18 Unknown Urine Nitrite Neg (Negative) 09/11/18 Unknown Urine Bilirubin Neg (Negative) 09/11/18 Unknown Urine Urobilinogen < 2.0 mg/dL (<2.0) 09/11/18 Unknown Ur Leukocyte Esterase Neg (Negative) 09/11/18 Unknown Urine WBC (Auto) 1.0 /HPF (0.0-6.0) 09/11/18 Unknown Urine RBC (Auto) 3.0 /HPF (0.0-6.0) 09/11/18 Unknown Urine Mucus Few /HPF 09/11/18 Unknown CSF Appearance Clear 09/19/18 15:00 CSF Color Colorless 09/19/18 15:00 CSF WBC 4 /mm3 (1-10) 09/19/18 15:00 CSF RBC 583 /mm3 (0-0) 09/19/18 15:00 CSF Seg Neutrophils 21.4 % (0-6) 09/19/18 15:00 CSF Lymphocytes % 71.4 % (40-80) 09/19/18 15:00 CSF Reactive Lymphs 0 % 09/19/18 15:00 CSF Monocytes % 7.1 % (15-45) 09/19/18 15:00 CSF Eosinophils % 0 % 09/19/18 15:00 CSF Basophils 0 % 09/19/18 15:00 CSF Pathologist Review C 09/19/18 15:00 CSF Glucose 32 mg/dL 09/19/18 15:00 CSF Total Protein 123 mg/dL 09/19/18 15:00 CSF VDRL Reactive 1:8 (Nonreactive) H 09/15/18 Unknown Urine Opiates Screen Presumptive negative 09/17/18 15:52 Urine Methadone Screen Presumptive negative 09/17/18 15:52 Ur Barbiturates Screen Presumptive negative 09/17/18 15:52 Ur Phencyclidine Scrn Presumptive negative 09/17/18 15:52 Ur Amphetamines Screen Presumptive negative 09/17/18 15:52 U Benzodiazepines Scrn Presumptive negative 09/17/18 15:52 Urine Cocaine Screen Presumptive negative 09/17/18 15:52 U Marijuana (THC) Screen Presumptive negative 09/17/18 15:52 Drugs of Abuse Note Disclamer 09/17/18 15:52 Lymph Enumerat CD4/CD8 0.01 (0.86-5.00) L 09/13/18 12:29 % CD3 Cells 71 % (57-85) 09/13/18 12:29 Absolute CD3 Count 220 cells/uL (840-3060) L 09/13/18 12:29 % CD4 Cells 1 % (30-61) L 09/13/18 12:29 Absolute CD4 Count 4 cells/uL (490-1740) L 09/13/18 12:29 % CD8 Cells 70 % (12-42) H 09/13/18 12:29 Absolute CD8 Count 216 cells/uL (180-1170) 09/13/18 12:29 % CD19 Cells 17 % (6-29) 09/13/18 12:29 Absolute CD19 Count 54 cells/uL (110-660) L 09/13/18 12:29 RPR Titer 1:16 09/13/18 12:29 RPR Reactive (Nonreactive) 09/13/18 12:29 T.pallidum Ab (FTA-ABS) Reactive (Nonreactive) H 09/14/18 16:34 C. difficile Toxin A&B Negative (Negative) 09/12/18 05:30 Hepatitis A IgM Ab Non-reactive (NonReactive) 09/13/18 12:29 Hep Bs Antigen Non-reactive (Negative) 09/13/18 12:29 Hep B Core IgM Ab Non-reactive (NonReactive) 09/13/18 12:29 Hepatitis C Antibody Non-reactive (NonReactive) 09/13/18 12:29 HIV-1 Antibody See scanned result 09/11/18 19:14 HIV-1 RNA PCR copies/ml 90444 Copies/mL H 09/13/18 12:29 HIV-1 RNA (PCR) log 4.71 Log cps/mL H 09/13/18 12:29 HIV-2 Ab (Immunoblot) See scanned result 09/11/18 19:14 HIV 1&2 Antibody Rapid Reactive (Non React) 09/11/18 19:14 HIV P24 Antigen Non react (Non React) 09/11/18 19:14 Influenza A (Rapid) Negative (Negative) 09/13/18 16:05 Influenza A (RT-PCR) Negative (Negative) 09/13/18 16:05 Influenza B (Rapid) Negative (Negative) 09/13/18 16:05 Influenza B (RT-PCR) Negative (Negative) 09/13/18 16:05 Toxoplasma IgG Ab <7.20 IU/mL (<7.20) 09/16/18 12:09 Nutrition/Malnutrition Assess - Dietary Evaluation Nutrition/Malnutrition Findings: Nutrition Notes Start: 09/12/18 17:45 Freq: Status: Active Protocol: Document 09/19/18 15:49 OL (Rec: 09/19/18 15:54 OL [id number]) Nutrition Notes Need for Assessment generated from: MD Order Initial or Follow up Reassessment Current Diagnosis Sepsis Other Pertinent Diagnosis Newly dx HIV, Bilat pneu Current Diet NPO Labs/Tests Reviewed Pertinent Medications Reviewed Height 6 ft Weight 102 kg [place] Body Weight (kg) 80.90 BMI 30.4 Subjective/Other Information RD consult for TF. Pt. with severe pharyngeal swallowing disfunction. [employer] ACCESS DEVELOPER recommending NPO Burn Absent Trauma Absent #1 Nutrition Diagnosis Malnutrition As Evidenced by Signs and Symptoms inability to safely swallow, pt. requiring enteral nutrition Diagnosis Progress(for reassessment Worsened documentation) Is patient on ventilator? No Is Patient Ambulatory and/or Out of Bed Yes REE-(Wise-St. or-ambulatory/OOB) [ 7493.900 [id number]] Kcal/Kg value to use for calculation 21 Approximate Energy Requirements Using 2142 kcal/Kg Calculation Used for Recommendations Kcal/kg Additional Notes Pro needs 0.8-1g/kg adjBW: 73- 91g/day Fluid needs 1ml/kcal Nutrition Intervention Change Diet Order: TF Nutrition Support: Osmolite 1.5 at 60mL/hr with 175mL flush q4h Kcal 2,160 Protein (gm) 90 Fluid (mL) 1,097 Add Supplement/Snack (indicate name/kcal d/c /protein ) Goal #1 TF to meet 75-100% of nutrient needs Anticipated Discharge Needs: Unable to determine at this time Follow-Up By: 09/21/18 Additional Comments f/u: new TF
--- NOTE | 2018-09-19 19:19 | XRay Report ---
FINAL REPORT EXAM: XR ABDOMEN 1V AP HISTORY: confirm dobb bernadette placement TECHNIQUE: AP abdominal radiograph. PRIORS: None. FINDINGS: The enteric tube curls in the stomach with the tip lying in the region of the gastric fundus. No primo l obstruction. No organomegaly or masses. No abnormal calcifications. No acute osseous abnormality. IMPRESSION: Enteric tube tip lying in the region of the gastric fundus.
--- NOTE | 2018-09-19 19:33 | Progress Note ---
Assessment and Plan Patient still has cough.Having increased respiratory secretions. Having mild respiratory distress.On 3 litres O2. o2 saturation 94%.Patient afebrile. Still neutropenic . - Patient Problems (1) Right upper lobe pulmonary infiltrate Current Visit: Yes Status: Acute Plan to address problem: Patient is on Levaquin, penicillin, bactrim ,Metronidazole and zithromax and Fluconazole. Antibiotics as per infectious diseases. Albuterol aerosol treatments q 6 hours. Respiratory suctioning. (2) Acidosis Current Visit: No Status: Acute Plan to address problem: Anion gap still high.18. Supplementing Sodium BICARB. (3) Sepsis Current Visit: Yes Status: Acute Plan to address problem: Patient is on Levaquin, penicillin, bactrim ,Metronidazole and zithromax and Fluconazole. Antibiotics as per infectious diseases. (4) HIV (human immunodeficiency virus infection) Current Visit: Yes Status: Chronic Plan to address problem: Management as per infectious diseases. Subjective Date of service: 09/19/18 Principal diagnosis: elevated LFTs/abnormal CT Interval history: Patient still has cough.Having increased respiratory secretions. Having mild respiratory distress.On 3 litres O2. o2 saturation 94%.Patient afebrile. Still neutropenic. Objective Vital Signs - 12hr 09/19/18 09/19/18 09/19/18 08:26 08:28 08:37 Temperature Pulse Rate Pulse Rate [ 98 H 100 H Anterior Right Throughout] Respiratory Rate Respiratory 20 20 Rate [Anterior Right Throughout] Blood Pressure O2 Sat by Pulse 94 Oximetry 09/19/18 09/19/18 09/19/18 12:30 15:52 16:02 Temperature 97.9 F Pulse Rate Pulse Rate [ 95 H 98 H Anterior Right Throughout] Respiratory 26 H Rate Respiratory 20 20 Rate [Anterior Right Throughout] Blood Pressure 111/65 O2 Sat by Pulse Oximetry 09/19/18 17:53 Temperature 98.6 F Pulse Rate 102 H Pulse Rate [ Anterior Right Throughout] Respiratory 26 H Rate Respiratory Rate [Anterior Right Throughout] Blood Pressure 116/65 O2 Sat by Pulse 92 Oximetry Constitutional: lethargic, agitated, appears uncomfortable Eyes: non-icteric ENT: oropharynx moist Neck: supple, no lymphadenopathy Ascultation: Bilateral: rhonchi Cardiovascular: regular rate and rhythm Gastrointestinal: normoactive bowel sounds, soft Integumentary: normal Extremities: no cyanosis, no edema Neurologic: pupils equal and round, CN II-XII normal Psychiatric: anxious, depressed CBC and BMP: 09/19/18 04:57 09/19/18 04:57 ABG, PT/INR, D-dimer: ABG POC ABG pH 7.367 (7.35-7.45) 09/16/18 15:43 POC ABG pCO2 29.3 (35-45) L 09/16/18 15:43 POC ABG pO2 70 (80-105) L 09/16/18 15:43 POC ABG HCO3 16.8 09/16/18 15:43 POC ABG Total CO2 18 09/16/18 15:43 POC ABG O2 Sat 94 09/16/18 15:43 PT/INR, D-dimer PT 14.5 Sec. (12.2-14.9) 09/15/18 09:33 INR 1.09 (0.87-1.13) 09/15/18 09:33 Abnormal lab findings: Abnormal Labs 09/11/18 09/11/18 09/11/18 18:00 18:00 18:00 WBC 1.9 L* Hgb Hct Plt Count 130 L Monocytes % (Manual) 16.0 H Seg Neutrophils # Man 0.9 L Abs Lymphs (Manual) Lymphocytes # (Manual) 0.5 L POC ABG pCO2 POC ABG pO2 Sodium 131 L Potassium Chloride Carbon Dioxide 17 L BUN 21 H Creatinine Glucose 126 H POC Glucose Lactic Acid 2.60 H* Calcium 8.1 L AST 123 H ALT 115 H Total Protein Albumin 3.0 L Vitamin B12 TSH Free T4 CSF VDRL Lymph Enumerat CD4/CD8 Absolute CD3 Count % CD4 Cells Absolute CD4 Count % CD8 Cells Absolute CD19 Count T.pallidum Ab (FTA-ABS) HIV-1 RNA PCR copies/ml HIV-1 RNA (PCR) log 09/11/18 09/13/18 09/13/18 19:01 04:28 07:31 WBC 2.0 L Hgb Hct Plt Count 116 L Monocytes % (Manual) 8.0 H Seg Neutrophils # Man 1.0 L Abs Lymphs (Manual) Lymphocytes # (Manual) 0.5 L POC ABG pCO2 POC ABG pO2 Sodium Potassium Chloride 110.4 H Carbon Dioxide 19 L BUN Creatinine Glucose POC Glucose Lactic Acid 3.70 H* Calcium 7.9 L AST ALT Total Protein Albumin Vitamin B12 TSH Free T4 CSF VDRL Lymph Enumerat CD4/CD8 Absolute CD3 Count % CD4 Cells Absolute CD4 Count % CD8 Cells Absolute CD19 Count T.pallidum Ab (FTA-ABS) HIV-1 RNA PCR copies/ml HIV-1 RNA (PCR) log 09/13/18 09/13/18 09/13/18 07:31 12:29 12:29 WBC Hgb Hct Plt Count Monocytes % (Manual) Seg Neutrophils # Man Abs Lymphs (Manual) 309 L Lymphocytes # (Manual) POC ABG pCO2 POC ABG pO2 Sodium Potassium Chloride Carbon Dioxide BUN Creatinine Glucose POC Glucose Lactic Acid Calcium AST 70 H ALT 68 H Total Protein Albumin 2.5 L Vitamin B12 TSH Free T4 CSF VDRL Lymph Enumerat CD4/CD8 0.01 L Absolute CD3 Count 220 L % CD4 Cells 1 L Absolute CD4 Count 4 L % CD8 Cells 70 H Absolute CD19 Count 54 L T.pallidum Ab (FTA-ABS) HIV-1 RNA PCR copies/ml 52531 H HIV-1 RNA (PCR) log 4.71 H 09/14/18 09/14/18 09/15/18 07:17 16:34 05:05 WBC 1.6 L* Hgb 10.4 L Hct 31.1 L D Plt Count 113 L Monocytes % (Manual) Seg Neutrophils # Man Abs Lymphs (Manual) Lymphocytes # (Manual) POC ABG pCO2 POC ABG pO2 Sodium Potassium 3.4 L Chloride Carbon Dioxide 18 L BUN Creatinine Glucose 104 H POC Glucose Lactic Acid Calcium 7.6 L AST 49 H ALT Total Protein Albumin 2.5 L Vitamin B12 TSH Free T4 CSF VDRL Lymph Enumerat CD4/CD8 Absolute CD3 Count % CD4 Cells Absolute CD4 Count % CD8 Cells Absolute CD19 Count T.pallidum Ab (FTA-ABS) Reactive H HIV-1 RNA PCR copies/ml HIV-1 RNA (PCR) log 09/15/18 09/15/18 09/16/18 05:05 Unknown 06:55 WBC 2.8 L Hgb 10.9 L Hct 33.5 L Plt Count 135 L Monocytes % (Manual) Seg Neutrophils # Man Abs Lymphs (Manual) Lymphocytes # (Manual) POC ABG pCO2 POC ABG pO2 Sodium Potassium Chloride 107.9 H Carbon Dioxide 18 L BUN 6 L Creatinine Glucose POC Glucose Lactic Acid Calcium 7.4 L AST ALT Total Protein Albumin Vitamin B12 TSH Free T4 CSF VDRL Reactive 1:8 H Lymph Enumerat CD4/CD8 Absolute CD3 Count % CD4 Cells Absolute CD4 Count % CD8 Cells Absolute CD19 Count T.pallidum Ab (FTA-ABS) HIV-1 RNA PCR copies/ml HIV-1 RNA (PCR) log 09/16/18 09/16/18 09/16/18 11:41 11:41 11:41 WBC Hgb Hct Plt Count Monocytes % (Manual) Seg Neutrophils # Man Abs Lymphs (Manual) Lymphocytes # (Manual) POC ABG pCO2 POC ABG pO2 Sodium Potassium Chloride Carbon Dioxide BUN Creatinine Glucose POC Glucose Lactic Acid Calcium AST ALT Total Protein Albumin Vitamin B12 934.5 H TSH 4.210 H Free T4 0.72 L CSF VDRL Lymph Enumerat CD4/CD8 Absolute CD3 Count % CD4 Cells Absolute CD4 Count % CD8 Cells Absolute CD19 Count T.pallidum Ab (FTA-ABS) HIV-1 RNA PCR copies/ml HIV-1 RNA (PCR) log 09/16/18 09/17/18 09/17/18 15:43 05:13 05:13 WBC 2.0 L Hgb 10.9 L Hct 32.7 L Plt Count Monocytes % (Manual) Seg Neutrophils # Man Abs Lymphs (Manual) Lymphocytes # (Manual) POC ABG pCO2 29.3 L POC ABG pO2 70 L Sodium Potassium Chloride 107.2 H Carbon Dioxide 21 L BUN 3 L Creatinine 0.7 L Glucose POC Glucose Lactic Acid Calcium 7.9 L AST ALT Total Protein 6.1 L Albumin 2.6 L Vitamin B12 TSH Free T4 CSF VDRL Lymph Enumerat CD4/CD8 Absolute CD3 Count % CD4 Cells Absolute CD4 Count % CD8 Cells Absolute CD19 Count T.pallidum Ab (FTA-ABS) HIV-1 RNA PCR copies/ml HIV-1 RNA (PCR) log 09/17/18 09/18/18 09/18/18 21:57 12:46 12:46 WBC Hgb Hct Plt Count Monocytes % (Manual) Seg Neutrophils # Man Abs Lymphs (Manual) Lymphocytes # (Manual) POC ABG pCO2 POC ABG pO2 Sodium Potassium Chloride Carbon Dioxide BUN Creatinine Glucose POC Glucose 108 H Lactic Acid Calcium AST ALT Total Protein Albumin Vitamin B12 TSH 5.190 H Free T4 0.75 L CSF VDRL Lymph Enumerat CD4/CD8 Absolute CD3 Count % CD4 Cells Absolute CD4 Count % CD8 Cells Absolute CD19 Count T.pallidum Ab (FTA-ABS) HIV-1 RNA PCR copies/ml HIV-1 RNA (PCR) log 09/19/18 09/19/18 04:57 04:57 WBC 2.1 L Hgb 11.4 L Hct 34.2 L Plt Count Monocytes % (Manual) Seg Neutrophils # Man Abs Lymphs (Manual) Lymphocytes # (Manual) POC ABG pCO2 POC ABG pO2 Sodium Potassium Chloride Carbon Dioxide 19 L BUN 6 L Creatinine Glucose POC Glucose Lactic Acid Calcium 7.9 L AST ALT Total Protein Albumin Vitamin B12 TSH Free T4 CSF VDRL Lymph Enumerat CD4/CD8 Absolute CD3 Count % CD4 Cells Absolute CD4 Count % CD8 Cells Absolute CD19 Count T.pallidum Ab (FTA-ABS) HIV-1 RNA PCR copies/ml HIV-1 RNA (PCR) log CT scan - chest: report reviewed (Reported pneumonia.), image reviewed
[2018-09-20 06:42] LABS: BUN/Creatinine Ratio 9; Blood Urea Nitrogen 7 mg/dL (9-20); Calcium 8.4 mg/dL (8.4-10.2); Hemolysis Index 23
[2018-09-20 07:37] LABS: Hemoglobin 12.1 gm/dl (11.8-15.2); Mean Corpuscular HGB Conc 33 % (32-34); Mean Corpuscular Volume 84 fl (84-94); Platelet Count 157 K/mm3 (140-440); Red Blood Count 4.39 M/mm3 (3.65-5.03); Red Cell Distribution Width 13.7 % (13.2-15.2)
[2018-09-20] MEDS: PROVENTIL IH SCH ×3 (07:51→20:29)
[2018-09-20] MEDS: PFIZERPEN 12 MIL.UNITS in NACL 0.9% 250ML 250 ML IV SCH ×2 (08:00→18:58)
[2018-09-20] MEDS: BACTRIM DS PO SCH ×2 (08:53→23:59)
--- NOTE | 2018-09-20 09:45 | XRay Report ---
AP ABDOMEN: HISTORY: Dobbhoff tube placement. The Dobbhoff tube is unchanged in position since yesterday's exam terminating in the fundus of the stomach. The abdominal gas pattern is unremarkable. No masses or organomegaly is identified and there is no gross evidence of free air or fluid. No significant soft tissue calcifications are noted. IMPRESSION: Unremarkable abdomen.
--- NOTE | 2018-09-20 09:50 | Progress Note ---
Assessment and Plan ' Cultures 09/11/2018 Blood: no growth to date 09/13/2018 Serum: Crytococcol negative 09/13/2018 Giardi Antigen: positive 09/13/2018 Crytosporidum: negative 09/13/2018 Stool WBC: negative 09/13/2018: Stool: Nona 33 y/o male with no PMH; admitted on 09/11/2018 due to nausea, voimiting, d iarrhea, weight loss and cough: 1. Severe sepsis: present on admission Improved; etio. bilateral pneumonia +/- gastroenteritis in the setting of newly diagnosed HIV. Blood culture 09/11/2018 no growth. 2. Multifocal Pneumonia: likely PJP pneumonia in light of HIV infection, CXR showed RUL pneumonia. CT abd showed bibasilar patchy infiltrates. Worsening SOB.. The etiology of SOB may be multifactorial - pneumonia which was felt to be PJP but now with RUL infiltrate ? aspiration pneumonia. Chest CT shows focal consolidation in the right lower lobe. Scattered infiltrates in the right upper and left lower lobe. No pneumothorax. No endobronchial lesions. Trace right pleural fusion. -Influenza PCR negative 3. Diarrhea: ? Resolved . colitis in immunocompromised patient ?bacterial, parasite, viral 4.Oral candidiasis 5. Weight loss: likely from HIV/AIDS, should r/o malignancy 6. HIV, newly diagninosed with presumed AIDS: given oral candidiasis and presumed PJP pneumonia. 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 He did not use condom consistently .-RPR Positive. Will order LP to evaluate +/- neuro syphilis -VL 50.700/ CD4 4 7. Acute Hypoxemic Respiratory Failure: From pneumonia. Currently on Bipap. 8. Elevated LFTs: due to severe sepsis ? eval for viral hepatitis ? pancreatic mass. CT abdomen showed enlarged uncinate process of the pancreas incompletely evaluated. Abdominal u/s shows cholelithiasis. No evidence for acute cholecystitis. Hep A,B,C -negative 9 .Neutropenia/thrombocytopenia: HIV myelosuppression, should r/o disseminated MAC 10. Acute Encephalopathy; Improving. 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 So far no evidence of [employer] infections but high CSF protein that could be due to HIV . Repeat CSF shows no evidence of [employer] infections, CSF protein trending down but still high at 123. VDRL reactivie at 1:8 which confirms neurosyphilis, will start 24 million units 24h continuous infusion of Penicillin G for 14 days Brain MRI - No acute CVA or brain mass. Left maxillary and bilateral sphenoid sinus retention cyst, suggesting of abnormal signal in the partially visualized right partoid gland, may be artifact of slightly oblique imaging. DDX included edema, inflammation or infection. CSF VDRL- Reactive 1:8 11. Transient Bradycardia: < 1minute with sinus pause and junctional escape rythm,reverted back to S.R immediately.Most likely this may be related to respiratory insufficiency with gurgling sounds in throat with depressed consciousness- Cardiology following Recs: Continue azithromycin 1200 mg once a week Continue Bactrim 2 tabs TID to cover PJP for 21 days, D8 of D21 continue fluconazole for oral candidiasis for 14 days, D8 of D14 -continue Flagyl 500mg, PO q 8 to cover Giardi, D8 of D10 Continue Levaquin to cover Pneumonia, total 5 days Continue Penicillian G 24 million units 24h continuous infusion for 14 days, D2 of D14 Anayeli James NP [facility] M: [phone] O:[phone] Subjective Date of service: 09/20/18 Principal diagnosis: elevated LFTs/abnormal CT Interval history: Patient seen and examined. Continues to follow simple commands, however slightly agitated today. On Bipap. No family at bedside. Discussion with bedside nurse. Objective - Exam Narrative Exam: Constitutional: acute Encephalopathy Head, Ears, Nose: Normocephalic, atraumatic. External ears, nose normal Eyes: Conjunctivae/corneas clear. No icterus. No ptosis. Neck:no JVD, left anterior neck large hard nodule non tender Oral: + thrush improving Cardiovascular: tachycardic Respiratory: On Bipap, scattered rhonci GI: Soft, non-tender; bowel sounds normal. No peritoneal signs Musculoskeletal: No pedal edema, no cyanosis. Skin: No rash or abscess. Hem/Lymphatic: No palpable cervical or supraclavicular nodes. No lymphangitis Psych: confused, mostly nonverbal Neurological: increased confusion and disorientation to self , place and time. - Constitutional Vitals: Vital Signs Temp Pulse Resp BP Pulse Ox 98.1 F 98 H 26 H 115/75 94 09/20/18 06:22 09/20/18 07:51 09/20/18 07:51 09/20/18 06:22 09/20/18 08:52 Temperature -Last 24 Hours Temperature 98.1 F Temperature 98.3 F Temperature 98.6 F Temperature 97.9 F - Labs CBC & Chem 7: 09/20/18 06:52 09/20/18 05:33 Labs: Abnormal lab results 09/20/18 09/20/18 Range/Units 05:33 06:52 WBC 2.5 L (4.5-11.0) K/mm3 Sodium 136 L (137-145) mmol/L Carbon Dioxide 19 L (22-30) mmol/L BUN 7 L (9-20) mg/dL
[2018-09-20] MEDS: LEVAQUIN 750MG/150ML 750 MG/150 ML BAG IV SCH (10:36)
[2018-09-20] MEDS: DIFLUCAN 200 ML IV SCH (10:36)
--- NOTE | 2018-09-20 10:37 | Progress Note ---
Assessment and Plan Patient had very transient bradycardia, <1minute with sinus pause and junctional escape rythm,reverted back to S.R immediately. Most likely this may be related to respiratory insufficiency with gurgling sounds in throat with depressed consciousness. Currently stable cardiac status. Pt currently in ST with no acute events noted on telemetry overnight. Pt with neurosyphilis per ID. Follow ID recs. Nothing further to add from cardiac perspective at this time. Will follow on as needed basis. The patient has been seen in conjunction with Dr. Sorto who agrees with the assessment and plan of care. - Patient Problems (1) Sepsis Current Visit: Yes Status: Acute (2) HIV (human immunodeficiency virus infection) Current Visit: Yes Status: Chronic (3) AIDS Current Visit: Yes Status: Suspected (4) Neutropenia Current Visit: Yes Status: Acute (5) Pneumonia Current Visit: Yes Status: Acute (6) Diarrhea Current Visit: Yes Status: Acute (7) Bradycardia Current Visit: Yes Status: Acute (8) Hypothyroidism Current Visit: Yes Status: Suspected (9) Encephalopathy Current Visit: Yes Status: Acute Subjective Date of service: 09/20/18 Principal diagnosis: elevated LFTs/abnormal CT Interval history: pt resting in bed, lethargic, on BiPAP. tele reviewed - currently in ST with no acute events noted overnight. Objective Last Vital Signs Temp 98.1 F 09/20/18 06:22 Pulse 98 H 09/20/18 07:51 Resp 26 H 09/20/18 07:51 BP 115/75 09/20/18 06:22 Pulse Ox 94 09/20/18 08:52 - Physical Examination General: Other (lethargic) HEENT: Positive: PERRL Neck: Positive: trachea midline Cardiac: Positive: Regular Rhythm, S1/S2 Lungs: Positive: Decreased Breath Sounds, Rhonchi Neuro: Positive: Grossly Intact Abdomen: Positive: Unremarkable Skin: Negative: Rash Extremities: Present: edema - Labs and Meds CBC 09/20/18 Range/Units 06:52 WBC 2.5 L (4.5-11.0) K/mm3 RBC 4.39 (3.65-5.03) M/mm3 Hgb 12.1 (11.8-15.2) gm/dl Hct 37.0 (35.5-45.6) % Plt Count 157 (140-440) K/mm3 Comprehensive Metabolic Panel 09/20/18 Range/Units 05:33 Sodium 136 L (137-145) mmol/L Potassium 4.6 (3.6-5.0) mmol/L Chloride 104.4 (98-107) mmol/L Carbon Dioxide 19 L (22-30) mmol/L BUN 7 L (9-20) mg/dL Creatinine 0.8 (0.8-1.5) mg/dL Glucose 88 (75-100) mg/dL Calcium 8.4 (8.4-10.2) mg/dL - Imaging and Cardiology Echo: report reviewed ( normal LV, no significant valvular abnormalities. ) - Telemetry EKG Rhythm: Sinus Tachycardia - EKG Sinus rhythms and dysrhythmias: sinus rhythm, sinus arrest or pause (Patient had very transient junctional rythm at rate of 35/mt,with sinus pause,lasted< one minute,reverted to judson S.R at >90/mt at 08:12 AM,09/18/2018.)
[2018-09-20] MEDS: SODIUM CHLORIDE FLUSH SYRINGE 10 ML IV SCH ×2 (11:04→23:57)
--- NOTE | 2018-09-20 13:40 | XRay Report ---
AP ABDOMEN: HISTORY: Dobbhoff tube placement. The Dobbhoff tube terminates in the fundus of the stomach just below the left hemidiaphragm. The abdominal gas pattern is unremarkable. No masses or organomegaly is identified and there is no gross evidence of free air or fluid. No significant soft tissue calcifications are noted. IMPRESSION: Unremarkable abdomen. Dobbhoff tube as described.
--- NOTE | 2018-09-20 14:45 | Progress Note ---
Assessment and Plan Patient sleeping at this time.Patient is on Bipap 16/7, rate 25, FIO2 40%. O2 saturation 95%.Tolerating BIPAP good.Patient afebrile. neutropenic. . - Patient Problems (1) Right upper lobe pulmonary infiltrate Current Visit: Yes Status: Acute Plan to address problem: Patient is on Levaquin, penicillin, bactrim ,Metronidazole and zithromax and Fluconazole. Antibiotics as per infectious diseases. Albuterol aerosol treatments q 6 hours. Respiratory suctioning. (2) Acidosis Current Visit: No Status: Acute Plan to address problem: Anion gap still high.17. Supplementing Sodium BICARB. (3) Sepsis Current Visit: Yes Status: Acute Plan to address problem: Patient is on Levaquin, penicillin, bactrim ,Metronidazole and zithromax and Flu conazole. Antibiotics as per infectious diseases. (4) HIV (human immunodeficiency virus infection) Current Visit: Yes Status: Chronic Plan to address problem: Management as per infectious diseases. Subjective Date of service: 09/20/18 Principal diagnosis: elevated LFTs/abnormal CT Interval history: Patient sleeping at this time.Patient is on Bipap 16/7, rate 25, FIO2 40%. O2 saturation 95%.Tolerating BIPAP good.Patient afebrile. neutropenic. Objective Vital Signs - 12hr 09/20/18 09/20/18 09/20/18 03:35 06:22 07:51 Temperature 98.1 F Pulse Rate 105 H Pulse Rate [ 98 H Anterior Left Throughout] Pulse Rate [ 97 H Anterior Right Throughout] Respiratory 28 H 24 Rate Respiratory 26 H Rate [Anterior Left Throughout ] Respiratory 26 H Rate [Anterior Right Throughout] Blood Pressure 115/75 O2 Sat by Pulse 94 Oximetry 09/20/18 09/20/18 09/20/18 08:52 10:45 13:45 Temperature Pulse Rate 100 H Pulse Rate [ 105 H Anterior Left Throughout] Pulse Rate [ 106 H Anterior Right Throughout] Respiratory 24 Rate Respiratory 34 H Rate [Anterior Left Throughout ] Respiratory 34 H Rate [Anterior Right Throughout] Blood Pressure O2 Sat by Pulse 94 95 Oximetry Constitutional: lethargic, agitated, appears uncomfortable Eyes: non-icteric ENT: oropharynx moist Neck: supple, no lymphadenopathy Ascultation: Bilateral: rhonchi Cardiovascular: regular rate and rhythm Gastrointestinal: normoactive bowel sounds, soft Integumentary: normal Extremities: no cyanosis, no edema Neurologic: pupils equal and round, CN II-XII normal Psychiatric: anxious, depressed CBC and BMP: 09/20/18 06:52 09/20/18 05:33 ABG, PT/INR, D-dimer: ABG POC ABG pH 7.367 (7.35-7.45) 09/16/18 15:43 POC ABG pCO2 29.3 (35-45) L 09/16/18 15:43 POC ABG pO2 70 (80-105) L 09/16/18 15:43 POC ABG HCO3 16.8 09/16/18 15:43 POC ABG Total CO2 18 09/16/18 15:43 POC ABG O2 Sat 94 09/16/18 15:43 PT/INR, D-dimer PT 14.5 Sec. (12.2-14.9) 09/15/18 09:33 INR 1.09 (0.87-1.13) 09/15/18 09:33 Abnormal lab findings: Abnormal Labs 09/11/18 09/11/18 09/11/18 18:00 18:00 18:00 WBC 1.9 L* Hgb Hct Plt Count 130 L Monocytes % (Manual) 16.0 H Seg Neutrophils # Man 0.9 L Abs Lymphs (Manual) Lymphocytes # (Manual) 0.5 L POC ABG pCO2 POC ABG pO2 Sodium 131 L Potassium Chloride Carbon Dioxide 17 L BUN 21 H Creatinine Glucose 126 H POC Glucose Lactic Acid 2.60 H* Calcium 8.1 L AST 123 H ALT 115 H Total Protein Albumin 3.0 L Vitamin B12 TSH Free T4 CSF VDRL Lymph Enumerat CD4/CD8 Absolute CD3 Count % CD4 Cells Absolute CD4 Count % CD8 Cells Absolute CD19 Count T.pallidum Ab (FTA-ABS) HIV-1 RNA PCR copies/ml HIV-1 RNA (PCR) log 09/11/18 09/13/18 09/13/18 19:01 04:28 07:31 WBC 2.0 L Hgb Hct Plt Count 116 L Monocytes % (Manual) 8.0 H Seg Neutrophils # Man 1.0 L Abs Lymphs (Manual) Lymphocytes # (Manual) 0.5 L POC ABG pCO2 POC ABG pO2 Sodium Potassium Chloride 110.4 H Carbon Dioxide 19 L BUN Creatinine Glucose POC Glucose Lactic Acid 3.70 H* Calcium 7.9 L AST ALT Total Protein Albumin Vitamin B12 TSH Free T4 CSF VDRL Lymph Enumerat CD4/CD8 Absolute CD3 Count % CD4 Cells Absolute CD4 Count % CD8 Cells Absolute CD19 Count T.pallidum Ab (FTA-ABS) HIV-1 RNA PCR copies/ml HIV-1 RNA (PCR) log 09/13/18 09/13/18 09/13/18 07:31 12:29 12:29 WBC Hgb Hct Plt Count Monocytes % (Manual) Seg Neutrophils # Man Abs Lymphs (Manual) 309 L Lymphocytes # (Manual) POC ABG pCO2 POC ABG pO2 Sodium Potassium Chloride Carbon Dioxide BUN Creatinine Glucose POC Glucose Lactic Acid Calcium AST 70 H ALT 68 H Total Protein Albumin 2.5 L Vitamin B12 TSH Free T4 CSF VDRL Lymph Enumerat CD4/CD8 0.01 L Absolute CD3 Count 220 L % CD4 Cells 1 L Absolute CD4 Count 4 L % CD8 Cells 70 H Absolute CD19 Count 54 L T.pallidum Ab (FTA-ABS) HIV-1 RNA PCR copies/ml 40029 H HIV-1 RNA (PCR) log 4.71 H 09/14/18 09/14/18 09/15/18 07:17 16:34 05:05 WBC 1.6 L* Hgb 10.4 L Hct 31.1 L D Plt Count 113 L Monocytes % (Manual) Seg Neutrophils # Man Abs Lymphs (Manual) Lymphocytes # (Manual) POC ABG pCO2 POC ABG pO2 Sodium Potassium 3.4 L Chloride Carbon Dioxide 18 L BUN Creatinine Glucose 104 H POC Glucose Lactic Acid Calcium 7.6 L AST 49 H ALT Total Protein Albumin 2.5 L Vitamin B12 TSH Free T4 CSF VDRL Lymph Enumerat CD4/CD8 Absolute CD3 Count % CD4 Cells Absolute CD4 Count % CD8 Cells Absolute CD19 Count T.pallidum Ab (FTA-ABS) Reactive H HIV-1 RNA PCR copies/ml HIV-1 RNA (PCR) log 09/15/18 09/15/18 09/16/18 05:05 Unknown 06:55 WBC 2.8 L Hgb 10.9 L Hct 33.5 L Plt Count 135 L Monocytes % (Manual) Seg Neutrophils # Man Abs Lymphs (Manual) Lymphocytes # (Manual) POC ABG pCO2 POC ABG pO2 Sodium Potassium Chloride 107.9 H Carbon Dioxide 18 L BUN 6 L Creatinine Glucose POC Glucose Lactic Acid Calcium 7.4 L AST ALT Total Protein Albumin Vitamin B12 TSH Free T4 CSF VDRL Reactive 1:8 H Lymph Enumerat CD4/CD8 Absolute CD3 Count % CD4 Cells Absolute CD4 Count % CD8 Cells Absolute CD19 Count T.pallidum Ab (FTA-ABS) HIV-1 RNA PCR copies/ml HIV-1 RNA (PCR) log 09/16/18 09/16/18 09/16/18 11:41 11:41 11:41 WBC Hgb Hct Plt Count Monocytes % (Manual) Seg Neutrophils # Man Abs Lymphs (Manual) Lymphocytes # (Manual) POC ABG pCO2 POC ABG pO2 Sodium Potassium Chloride Carbon Dioxide BUN Creatinine Glucose POC Glucose Lactic Acid Calcium AST ALT Total Protein Albumin Vitamin B12 934.5 H TSH 4.210 H Free T4 0.72 L CSF VDRL Lymph Enumerat CD4/CD8 Absolute CD3 Count % CD4 Cells Absolute CD4 Count % CD8 Cells Absolute CD19 Count T.pallidum Ab (FTA-ABS) HIV-1 RNA PCR copies/ml HIV-1 RNA (PCR) log 09/16/18 09/17/18 09/17/18 15:43 05:13 05:13 WBC 2.0 L Hgb 10.9 L Hct 32.7 L Plt Count Monocytes % (Manual) Seg Neutrophils # Man Abs Lymphs (Manual) Lymphocytes # (Manual) POC ABG pCO2 29.3 L POC ABG pO2 70 L Sodium Potassium Chloride 107.2 H Carbon Dioxide 21 L BUN 3 L Creatinine 0.7 L Glucose POC Glucose Lactic Acid Calcium 7.9 L AST ALT Total Protein 6.1 L Albumin 2.6 L Vitamin B12 TSH Free T4 CSF VDRL Lymph Enumerat CD4/CD8 Absolute CD3 Count % CD4 Cells Absolute CD4 Count % CD8 Cells Absolute CD19 Count T.pallidum Ab (FTA-ABS) HIV-1 RNA PCR copies/ml HIV-1 RNA (PCR) log 09/17/18 09/18/18 09/18/18 21:57 12:46 12:46 WBC Hgb Hct Plt Count Monocytes % (Manual) Seg Neutrophils # Man Abs Lymphs (Manual) Lymphocytes # (Manual) POC ABG pCO2 POC ABG pO2 Sodium Potassium Chloride Carbon Dioxide BUN Creatinine Glucose POC Glucose 108 H Lactic Acid Calcium AST ALT Total Protein Albumin Vitamin B12 TSH 5.190 H Free T4 0.75 L CSF VDRL Lymph Enumerat CD4/CD8 Absolute CD3 Count % CD4 Cells Absolute CD4 Count % CD8 Cells Absolute CD19 Count T.pallidum Ab (FTA-ABS) HIV-1 RNA PCR copies/ml HIV-1 RNA (PCR) log 09/19/18 09/19/18 09/20/18 04:57 04:57 05:33 WBC 2.1 L Hgb 11.4 L Hct 34.2 L Plt Count Monocytes % (Manual) Seg Neutrophils # Man Abs Lymphs (Manual) Lymphocytes # (Manual) POC ABG pCO2 POC ABG pO2 Sodium 136 L Potassium Chloride Carbon Dioxide 19 L 19 L BUN 6 L 7 L Creatinine Glucose POC Glucose Lactic Acid Calcium 7.9 L AST ALT Total Protein Albumin Vitamin B12 TSH Free T4 CSF VDRL Lymph Enumerat CD4/CD8 Absolute CD3 Count % CD4 Cells Absolute CD4 Count % CD8 Cells Absolute CD19 Count T.pallidum Ab (FTA-ABS) HIV-1 RNA PCR copies/ml HIV-1 RNA (PCR) log 09/20/18 06:52 WBC 2.5 L Hgb Hct Plt Count Monocytes % (Manual) Seg Neutrophils # Man Abs Lymphs (Manual) Lymphocytes # (Manual) POC ABG pCO2 POC ABG pO2 Sodium Potassium Chloride Carbon Dioxide BUN Creatinine Glucose POC Glucose Lactic Acid Calcium AST ALT Total Protein Albumin Vitamin B12 TSH Free T4 CSF VDRL Lymph Enumerat CD4/CD8 Absolute CD3 Count % CD4 Cells Absolute CD4 Count % CD8 Cells Absolute CD19 Count T.pallidum Ab (FTA-ABS) HIV-1 RNA PCR copies/ml HIV-1 RNA (PCR) log
--- NOTE | 2018-09-20 15:21 | Progress Note ---
Assessment and Plan Assessment and plan: Sepsis. Present on admission. Patient is criteria given the leukopenia, tachycardia and diagnosis of gastroenteritis. Follow-up blood and stool studies. Continue IV antibiotics. Gastroenteritis. Follow-up stool studies and CT scan of the abdomen and pelvis--check for colitis. Continue Zosyn and Flagyl. Leukopenia. Consider hematology consultation. Diarrhea. Stool studies for WBC, culture and C. difficile History Interval history: Patient is 33 yo initially presented with diarrhea, found to have pneumonia, sepsis, HIV/AIDS(new diagnosis) with CD4 count of 4. He was started on Bactrim for poss PCP. His mental status has worsened with confusion, lethargy. LP done . He is diagnosed with neurosyphilis. Started on Penicillin. Closest family is jaswinder taylor in [place], and I spoke to her several times about diagnosis but did not tell her about HIV/AIDS because of patient confidentiality. She calls everyday for updates and is likely coming to [place] Wednesday09/23/18 to see him. No new issues overnight. Hospitalist Physical - Constitutional Vitals: Temp Pulse Resp BP Pulse Ox 98.1 F 105 H 34 H 115/75 95 09/20/18 06:22 09/20/18 13:45 09/20/18 13:45 09/20/18 06:22 09/20/18 10:45 General appearance: Present: mild distress - EENT Eyes: Present: PERRL, EOM intact ENT: hearing intact, clear oral mucosa, dentition normal - Neck Neck: Present: supple, normal ROM - Respiratory Respiratory effort: normal Respiratory: bilateral: CTA - Cardiovascular Rhythm: regular Heart Sounds: Present: S1 & S2. Absent: gallop, rub - Extremities Extremities: no ischemia, No edema, Full ROM - Abdominal General gastrointestinal: soft, non-tender, non-distended, normal bowel sounds - Integumentary Integumentary: Present: clear, warm, dry - Neurologic Neurologic: CNII-XII intact, moves all extremities Results - Labs CBC & Chem 7: 09/20/18 06:52 09/20/18 05:33 Labs: Laboratory Last Values WBC 2.5 K/mm3 (4.5-11.0) L 09/20/18 06:52 RBC 4.39 M/mm3 (3.65-5.03) 09/20/18 06:52 Hgb 12.1 gm/dl (11.8-15.2) 09/20/18 06:52 Hct 37.0 % (35.5-45.6) 09/20/18 06:52 MCV 84 fl (84-94) 09/20/18 06:52 MCH 28 pg (28-32) 09/20/18 06:52 MCHC 33 % (32-34) 09/20/18 06:52 RDW 13.7 % (13.2-15.2) 09/20/18 06:52 Plt Count 157 K/mm3 (140-440) 09/20/18 06:52 [place] % (Auto) Soundscriber Mechanic 09/11/18 18:00 Add Manual Diff Complete 09/13/18 04:28 Total Counted 50 09/13/18 04:28 Seg Neuts % (Manual) 50.0 % (40.0-70.0) 09/13/18 04:28 Band Neutrophils % 18.0 % 09/13/18 04:28 Lymphocytes % (Manual) 24.0 % (13.4-35.0) 09/13/18 04:28 Reactive Lymphs % (Man) 0 % 09/13/18 04:28 Monocytes % (Manual) 8.0 % (0.0-7.3) H 09/13/18 04:28 Eosinophils % (Manual) 0 % (0.0-4.3) 09/13/18 04:28 Basophils % (Manual) 0 % (0.0-1.8) 09/13/18 04:28 Metamyelocytes % 0 % 09/13/18 04:28 Myelocytes % 0 % 09/13/18 04:28 Promyelocytes % 0 % 09/13/18 04:28 Blast Cells % 0 % 09/13/18 04:28 Nucleated RBC % Not Reportable 09/13/18 04:28 Seg Neutrophils # Man 1.0 K/mm3 (1.8-7.7) L 09/13/18 04:28 Band Neutrophils # 0.4 K/mm3 09/13/18 04:28 Abs Lymphs (Manual) 309 cells/uL (850-3900) L 09/13/18 12:29 Lymphocytes # (Manual) 0.5 K/mm3 (1.2-5.4) L 09/13/18 04:28 Abs React Lymphs (Man) 0.0 K/mm3 09/13/18 04:28 Monocytes # (Manual) 0.2 K/mm3 (0.0-0.8) 09/13/18 04:28 Eosinophils # (Manual) 0.0 K/mm3 (0.0-0.4) 09/13/18 04:28 Basophils # (Manual) 0.0 K/mm3 (0.0-0.1) 09/13/18 04:28 Metamyelocytes # 0.0 K/mm3 09/13/18 04:28 Myelocytes # 0.0 K/mm3 09/13/18 04:28 Promyelocytes # 0.0 K/mm3 09/13/18 04:28 Blast Cells # 0.0 K/mm3 09/13/18 04:28 WBC Morphology Not Reportable 09/13/18 04:28 Hypersegmented Neuts Not Reportable 09/13/18 04:28 Hyposegmented Neuts Not Reportable 09/13/18 04:28 Hypogranular Neuts Not Reportable 09/13/18 04:28 Smudge Cells Not Reportable 09/13/18 04:28 Toxic Granulation Not Reportable 09/13/18 04:28 Toxic Vacuolation Not Reportable 09/13/18 04:28 Dohle Bodies Not Reportable 09/13/18 04:28 Pelger-Huet Anomaly Not Reportable 09/13/18 04:28 Giovanna Rods Not Reportable 09/13/18 04:28 Platelet Estimate Consistent w auto 09/13/18 04:28 Clumped Platelets Not Reportable 09/13/18 04:28 Plt Clumps, EDTA Not Reportable 09/13/18 04:28 Large Platelets Not Reportable 09/13/18 04:28 Giant Platelets Not Reportable 09/13/18 04:28 Platelet Satelliting Not Reportable 09/13/18 04:28 Plt Morphology Comment Not Reportable 09/13/18 04:28 RBC Morphology Not Reportable 09/13/18 04:28 Dimorphic RBCs Not Reportable 09/13/18 04:28 Polychromasia Not Reportable 09/13/18 04:28 Hypochromasia Not Reportable 09/13/18 04:28 Poikilocytosis Not Reportable 09/13/18 04:28 Anisocytosis 1+ 09/13/18 04:28 Microcytosis Rare 09/13/18 04:28 Macrocytosis Not Reportable 09/13/18 04:28 Spherocytes Not Reportable 09/13/18 04:28 Pappenheimer Bodies Not Reportable 09/13/18 04:28 Sickle Cells Not Reportable 09/13/18 04:28 Target Cells Not Reportable 09/13/18 04:28 Tear Drop Cells Not Reportable 09/13/18 04:28 Ovalocytes 1+ 09/13/18 04:28 Helmet Cells Not Reportable 09/13/18 04:28 [place] Bodies Not Reportable 09/13/18 04:28 [place] Rings Not Reportable 09/13/18 04:28 [place] Cells Not Reportable 09/13/18 04:28 Bite Cells Not Reportable 09/13/18 04:28 Crenated Cell Not Reportable 09/13/18 04:28 Elliptocytes Few 09/13/18 04:28 Acanthocytes (Spur) Not Reportable 09/13/18 04:28 Rouleaux Not Reportable 09/13/18 04:28 Hemoglobin C Crystals Not Reportable 09/13/18 04:28 Schistocytes Not Reportable 09/13/18 04:28 Malaria parasites Not Reportable 09/13/18 04:28 Kieran Bodies Not Reportable 09/13/18 04:28 Hem Pathologist Commnt No 09/13/18 04:28 PT 14.5 Sec. (12.2-14.9) 09/15/18 09:33 INR 1.09 (0.87-1.13) 09/15/18 09:33 POC ABG pH 7.367 (7.35-7.45) 09/16/18 15:43 POC ABG pCO2 29.3 (35-45) L 09/16/18 15:43 POC ABG pO2 70 (80-105) L 09/16/18 15:43 POC ABG HCO3 16.8 09/16/18 15:43 POC ABG Total CO2 18 09/16/18 15:43 POC ABG O2 Sat 94 09/16/18 15:43 POC ABG Base Excess -8 09/16/18 15:43 FiO2 21 % 09/16/18 15:43 Sodium 136 mmol/L (137-145) L 09/20/18 05:33 Potassium 4.6 mmol/L (3.6-5.0) 09/20/18 05:33 Chloride 104.4 mmol/L (98-107) 09/20/18 05:33 Carbon Dioxide 19 mmol/L (22-30) L 09/20/18 05:33 Anion Gap 17 mmol/L 09/20/18 05:33 BUN 7 mg/dL (9-20) L 09/20/18 05:33 Creatinine 0.8 mg/dL (0.8-1.5) 09/20/18 05:33 Estimated GFR > 60 ml/min 09/20/18 05:33 BUN/Creatinine Ratio 9 % 09/20/18 05:33 Glucose 88 mg/dL (75-100) 09/20/18 05:33 POC Glucose 88 (70-105) 09/20/18 07:56 Lactic Acid 0.90 mmol/L (0.7-2.0) 09/11/18 20:17 Calcium 8.4 mg/dL (8.4-10.2) 09/20/18 05:33 Total Bilirubin 0.20 mg/dL (0.1-1.2) 09/17/18 05:13 Direct Bilirubin < 0.2 mg/dL (0-0.2) 09/13/18 07:31 AST 40 units/L (5-40) 09/17/18 05:13 ALT 30 units/L (7-56) 09/17/18 05:13 Alkaline Phosphatase 50 units/L (35-129) 09/17/18 05:13 Ammonia 47.0 umol/L (25-60) 09/16/18 11:41 NT-Pro-B Natriuret Pep 145.9 pg/mL (0-450) 09/18/18 16:07 Total Protein 6.1 g/dL (6.3-8.2) L 09/17/18 05:13 Albumin 2.6 g/dL (3.9-5) L 09/17/18 05:13 Albumin/Globulin Ratio 0.7 % 09/17/18 05:13 Vitamin B12 934.5 pg/mL (211-911) H 09/16/18 11:41 TSH 5.190 mlU/mL (0.270-4.200) H 09/18/18 12:46 Free T4 0.75 ng/dL (0.76-1.46) L 09/18/18 12:46 Urine Color [place] (Yellow) 09/11/18 Unknown Urine Turbidity Clear (Clear) 09/11/18 Unknown Urine pH 5.0 (5.0-7.0) 09/11/18 Unknown Ur Specific [place] 1.016 (1.003-1.030) 09/11/18 Unknown Urine Protein <15 mg/dl mg/dL (Negative) 09/11/18 Unknown Urine Glucose (UA) Neg mg/dL (Negative) 09/11/18 Unknown Urine Ketones Neg mg/dL (Negative) 09/11/18 Unknown Urine Blood Sm (Negative) 09/11/18 Unknown Urine Nitrite Neg (Negative) 09/11/18 Unknown Urine Bilirubin Neg (Negative) 09/11/18 Unknown Urine Urobilinogen < 2.0 mg/dL (<2.0) 09/11/18 Unknown Ur Leukocyte Esterase Neg (Negative) 09/11/18 Unknown Urine WBC (Auto) 1.0 /HPF (0.0-6.0) 09/11/18 Unknown Urine RBC (Auto) 3.0 /HPF (0.0-6.0) 09/11/18 Unknown Urine Mucus Few /HPF 09/11/18 Unknown CSF Appearance Clear 09/19/18 15:00 CSF Color Colorless 09/19/18 15:00 CSF WBC 4 /mm3 (1-10) 09/19/18 15:00 CSF RBC 583 /mm3 (0-0) 09/19/18 15:00 CSF Seg Neutrophils 21.4 % (0-6) 09/19/18 15:00 CSF Lymphocytes % 71.4 % (40-80) 09/19/18 15:00 CSF Reactive Lymphs 0 % 09/19/18 15:00 CSF Monocytes % 7.1 % (15-45) 09/19/18 15:00 CSF Eosinophils % 0 % 09/19/18 15:00 CSF Basophils 0 % 09/19/18 15:00 CSF Pathologist Review C 09/19/18 15:00 CSF Glucose 32 mg/dL 09/19/18 15:00 CSF Total Protein 123 mg/dL 09/19/18 15:00 CSF VDRL Reactive 1:8 (Nonreactive) H 09/15/18 Unknown Urine Opiates Screen Presumptive negative 09/17/18 15:52 Urine Methadone Screen Presumptive negative 09/17/18 15:52 Ur Barbiturates Screen Presumptive negative 09/17/18 15:52 Ur Phencyclidine Scrn Presumptive negative 09/17/18 15:52 Ur Amphetamines Screen Presumptive negative 09/17/18 15:52 U Benzodiazepines Scrn Presumptive negative 09/17/18 15:52 Urine Cocaine Screen Presumptive negative 09/17/18 15:52 U Marijuana (THC) Screen Presumptive negative 09/17/18 15:52 Drugs of Abuse Note Disclamer 09/17/18 15:52 Lymph Enumerat CD4/CD8 0.01 (0.86-5.00) L 09/13/18 12:29 % CD3 Cells 71 % (57-85) 09/13/18 12:29 Absolute CD3 Count 220 cells/uL (840-3060) L 09/13/18 12:29 % CD4 Cells 1 % (30-61) L 09/13/18 12:29 Absolute CD4 Count 4 cells/uL (490-1740) L 09/13/18 12:29 % CD8 Cells 70 % (12-42) H 09/13/18 12:29 Absolute CD8 Count 216 cells/uL (180-1170) 09/13/18 12:29 % CD19 Cells 17 % (6-29) 09/13/18 12:29 Absolute CD19 Count 54 cells/uL (110-660) L 09/13/18 12:29 RPR Titer 1:16 09/13/18 12:29 RPR Reactive (Nonreactive) 09/13/18 12:29 T.pallidum Ab (FTA-ABS) Reactive (Nonreactive) H 09/14/18 16:34 C. difficile Toxin A&B Negative (Negative) 09/12/18 05:30 Hepatitis A IgM Ab Non-reactive (NonReactive) 09/13/18 12:29 Hep Bs Antigen Non-reactive (Negative) 09/13/18 12:29 Hep B Core IgM Ab Non-reactive (NonReactive) 09/13/18 12:29 Hepatitis C Antibody Non-reactive (NonReactive) 09/13/18 12:29 HIV-1 Antibody See scanned result 09/11/18 19:14 HIV-1 RNA PCR copies/ml 51581 Copies/mL H 09/13/18 12:29 HIV-1 RNA (PCR) log 4.71 Log cps/mL H 09/13/18 12:29 HIV-2 Ab (Immunoblot) See scanned result 09/11/18 19:14 HIV 1&2 Antibody Rapid Reactive (Non React) 09/11/18 19:14 HIV P24 Antigen Non react (Non React) 09/11/18 19:14 Influenza A (Rapid) Negative (Negative) 09/13/18 16:05 Influenza A (RT-PCR) Negative (Negative) 09/13/18 16:05 Influenza B (Rapid) Negative (Negative) 09/13/18 16:05 Influenza B (RT-PCR) Negative (Negative) 09/13/18 16:05 Toxoplasma IgG Ab <7.20 IU/mL (<7.20) 09/16/18 12:09 Nutrition/Malnutrition Assess - Dietary Evaluation Nutrition/Malnutrition Findings: Nutrition Notes Start: 09/12/18 17:45 Freq: Status: Active Protocol: Document 09/19/18 15:49 OL (Rec: 09/19/18 15:54 OL [id number]) Nutrition Notes Need for Assessment generated from: MD Order Initial or Follow up Reassessment Current Diagnosis Sepsis Other Pertinent Diagnosis Newly dx HIV, Bilat pneu Current Diet NPO Labs/Tests Reviewed Pertinent Medications Reviewed Height 6 ft Weight 102 kg [place] Body Weight (kg) 80.90 BMI 30.4 Subjective/Other Information RD consult for TF. Pt. with severe pharyngeal swallowing disfunction. CAR SEALER recommending NPO Burn Absent Trauma Absent #1 Nutrition Diagnosis Malnutrition As Evidenced by Signs and Symptoms inability to safely swallow, pt. requiring enteral nutrition Diagnosis Progress(for reassessment Worsened documentation) Is patient on ventilator? No Is Patient Ambulatory and/or Out of Bed Yes REE-([place]-St. Jeor-ambulatory/OOB) [ 2603.900 [id number]] Kcal/Kg value to use for calculation 21 Approximate Energy Requirements Using 2142 kcal/Kg Calculation Used for Recommendations Kcal/kg Additional Notes Pro needs 0.8-1g/kg adjBW: 73- 91g/day Fluid needs 1ml/kcal Nutrition Intervention Change Diet Order: TF Nutrition Support: Osmolite 1.5 at 60mL/hr with 175mL flush q4h Kcal 2,160 Protein (gm) 90 Fluid (mL) 1,097 Add Supplement/Snack (indicate name/kcal d/c /protein ) Goal #1 TF to meet 75-100% of nutrient needs Anticipated Discharge Needs: Unable to determine at this time Follow-Up By: 09/21/18 Additional Comments f/u: new TF
[2018-09-20] MEDS: FLAGYL PO SCH ×3 (23:48→23:54)
[2018-09-21] MEDS ORDERED: SUBLIMAZE IV ONE (01:43)
[2018-09-21] MEDS ORDERED: VASELINE LIP THERAPY TP PRN (01:46)
[2018-09-21] MEDS ORDERED: ARTIFICIAL TEARS OPHTH OINT OU PRN (01:46)
[2018-09-21] MEDS ORDERED: MIDAZOLAM 100 MG in NACL 0.9% 80 ML IV SCH (02:00)
[2018-09-21] MEDS ORDERED: VERSED IV NR (02:00)
[2018-09-21] MEDS ORDERED: fentaNYL DRIP Premix 2,000 MCG/100 ML BAG IV SCH (02:00)
[2018-09-21] MEDS: SUBLIMAZE IV PRN (02:05)
--- NOTE | 2018-09-21 02:36 | Event Note ---
Date: 09/21/18 Received call from hospital team to intubate patient for respiratory failure. As per verbal indication from critical care nursing team, and hospitalist staff, the patient is full code. As per verbal report from respiratory therapist Vance, direct laryngoscopy has been attempted with the use of Versed, but was unsuccessful. Intubation was uns uccessful by initial attempt. Uncertain how many attempt (s) have taken place. Upon my arrival to the room, the patient is altered, sonorous sleep breathing, and receiving bag valve mask ventilation. He is not protecting his airway. He is placed on a nasal cannula at 15 L/m. He continues to receive bag valve mask ventilation. Towel rolls placed underneath the shoulders, and ears are aligned to the sternal notch. Patient induced with 100 mg of ketamine, and 100 mg of rocuronium. Direct laryngoscopy performed with a Dutch 4 blade, and a 7.5 endotracheal tube is inserted into the trachea, and noted by myself to be passing through the vocal cords. Patient is also suctioned aggressively prior to intubation. Post intubation, tube is secured at approximately 24 cm at the lips, color changes noted on capnography device, patient has breath sounds in the bilateral lung krause, and the tube is directly visualized passing through the cords, with video laryngoscopy. Hospitalist team is present during intubation. I will defer to the inpatient team to manage the patient's post intubation. My preliminary interpretation of the post intubation chest x-ray demonstrated appropriate tube placement.
[2018-09-21] MEDS ORDERED: LOPRESSOR IV ONE (02:40)
--- NOTE | 2018-09-21 02:40 | XRay Report ---
FINAL REPORT EXAM: XR CHEST 1V AP HISTORY: ETT placement TECHNIQUE: A portable supine view the chest was obtained and compared to the study of 09/18/2018. FINDINGS: The heart size is normal. The pulmonary vasculature is mildly prominent. There are no localized infil trates or effusions. The tip of the ET tube is 3.2 cm above the narcisa. The tip of the Dobhoff tube i s in the upper stomach. There are EKG leads overlying the chest wall. The skeletal structures are unr emarkable. IMPRESSION: Satisfactory intubation. The tip of the Dobhoff tube is in the proximal stomach. Mild pulmonary congestion. No localized infiltrates.
[2018-09-21] MEDS: LOPRESSOR IV SCH ×4 (03:45→21:34)
[2018-09-21] MEDS: SYNTHROID PO SCH ×2 (03:46→05:03)
[2018-09-21] MEDS ORDERED: CARDIZEM IV ONE (04:18)
[2018-09-21] MEDS: PROVENTIL IH SCH ×4 (04:43→19:30)
[2018-09-21] MEDS ORDERED: CARDIZEM/D5W 100MG/100ML 100 MG/100 ML BAG IV SCH (05:00)
[2018-09-21] MEDS: FLAGYL PO SCH ×3 (05:02→22:04)
[2018-09-21 05:03] LABS: Hematocrit 36.4 % (35.5-45.6); Hemoglobin 11.6 gm/dl (11.8-15.2); Mean Corpuscular HGB Conc 32 % (32-34); Mean Corpuscular Volume 88 fl (84-94); Platelet Count 175 K/mm3 (140-440); Red Blood Count 4.15 M/mm3 (3.65-5.03); Red Cell Distribution Width 14.8 % (13.2-15.2)
[2018-09-21 05:15] LABS: Creatine Kinase MB 3.5 ng/mL (0.0-4.0)
[2018-09-21 05:24] LABS: BUN/Creatinine Ratio 11; Blood Urea Nitrogen 12 mg/dL (9-20); Calcium 8.4 mg/dL (8.4-10.2); Hemolysis Index 12
[2018-09-21 05:41] LABS: Anisocytosis 1+; Band Neutrophils # (Manual) 0.6 K/mm3; Basophils % (Manual) 0 % (0.0-1.8); Eosinophils % (Manual) 0 % (0.0-4.3); Hypochromasia 1+; Ovalocytes 1+; Stomatocytes Few; Target Cells Rare; Total Cells Counted 100
[2018-09-21] MEDS ORDERED: NACL 0.9% 1000 ML 1,000 ML IV SCH (06:00)
[2018-09-21] MEDS: PFIZERPEN 12 MIL.UNITS in NACL 0.9% 250ML 250 ML IV SCH ×2 (07:00→17:15)
[2018-09-21] MEDS: BACTRIM DS PO SCH ×3 (07:17→07:58)
[2018-09-21] MEDS ORDERED: TYLENOL PR PRN (07:39)
[2018-09-21] MEDS ORDERED: LANOXIN IV STA (07:49)
[2018-09-21] MEDS: TYLENOL PO PRN ×2 (07:53→22:03)
--- NOTE | 2018-09-21 09:41 | Progress Note ---
Assessment and Plan Cultures: 09/11/2018 blood culture no growth A/P: 33 y/o male with no PMH; admitted on 09/11/2018 due to 4 days-AMS/behavioral changes, nausea, voimiting, diarrhea, weight loss and cough: Severe sepsis: present on admission with fever, tachycardia, hypotension and elevated lactate; etio. bilateral pneumonia +/- gastroenteritis in the setting of newly diagnosed HIV. Blood culture 09/11/2018 no growth. Acute respiratory failure: likely multifactorial from multifocal pneumonia +/- volume overload +/- lethargy unable to handle secretions Bilateral pneumonia: initially felt to be PJP pneumonia in light of advanced AIDS. Intiial CXR showed RUL pneumonia. Initial CT abd showed bibasilar patchy infiltrates. Recent CT chest showed multifocal pneumonia ? aspiration. 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 TTE EF>60. ? component of heart failure. Repeat CXT showed pulmonary edema. 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 Repeat LP yesterday showed no pleocytosis, protein still high, low glucose (WBC 4, RBC 587, Lymph 71%, protein 123, glucose 32 on 09/19/2018). Should have good prognosis, but his mentation is not better after D4 of penicillin G. It may represent also effects from HIV virus. Diarrhea: resolved, likely due to Giardiasis as Giardia antigen positive in stool, in immunocompromised patient, on flagyl Oral candidiasis: better, on fluconazole Weight loss: likely from HIV/AIDS HIV, newly diagnosed with defining diseases - oral candidiasis and presumed PJP pneumonia. 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 He did not use condom consistently. - CD4=4 - VL=50,700 Elevated LFTs: resolved, likely due to severe sepsis. CT abdomen showed enlarged uncinate process of the pancreas incompletely evaluated. Viral hepatitis serologies all non reactive. Neutropenia/thrombocytopenia: likely from HIV myelosuppression +/- sepsis, thrombocytopenia reolved. should r/o disseminated MAC Recs: Send tracheal aspirate for culture and PJP DFA Continue aqueous Penicillin G 24 million units continuous infusion in 24h for neurosyphilis Continue levaquin and flagyl to cover aspiration pneumonia, flagyl also covers Giardiasis Continue azithromycin 1200 mg po qweek for MAC prophylaxis Discontinue bactrim DS2 tab TID D8 of D21, start atovaquone instead due to increased K. Continue fluconazole for oral candidiasis D8 of D14 F/u repeat LP VDRL as well as YAYO PCR and CMV PCR F/u AFB blood cultures sent EEG per neurology Will send HIV-genotype LP has to be repeated in 3 months to determine CSF protein and VDRL non reactive or titer <1:2. Failure to do so after a year should prompt re-treatment. Will follow MD [facility] C: [phone] O: [phone] F: [phone] Subjective Date of service: 09/21/18 Principal diagnosis: elevated LFTs/abnormal CT Interval history: Patient deteriorated overnight, went into ARVR Afib, hypoxemia, intubated, received adenosine and digoxin, currently on cardizem gtt. Noted fever at 100.8. ROS: unable to obtain Objective - Exam Narrative Exam: Constitutional: Intubated somnolent open eyes in NAD Head, Ears, Nose: Normocephalic, atraumatic. External ears, nose normal Eyes: Conjunctivae/corneas clear. No icterus. No ptosis. Neck:no JVD, left anterior neck large hard nodule non tender Oral: ETT, OGT Cardiovascular: tachycardic Respiratory: distant BS GI: Soft, non-tender; bowel sounds normal. No peritoneal signs Musculoskeletal: No pedal edema, no cyanosis. Skin: No rash or abscess. Hem/Lymphatic: No palpable cervical or supraclavicular nodes. No lymphangitis Psych: somnolent Neurological: somnolent - Constitutional Vitals: Vital Signs Temp Pulse Resp BP Pulse Ox 100.8 F H 183 H 30 H 93/60 98 09/21/18 04:00 09/21/18 07:57 09/21/18 06:00 09/21/18 07:57 09/21/18 06:00 Temperature -Last 24 Hours Temperature 100.8 F Temperature 100.6 F Temperature 99.8 F Temperature 97.0 F - Labs CBC & Chem 7: 09/21/18 04:15 09/21/18 04:15 Labs: Abnormal lab results 09/21/18 09/21/18 09/21/18 Range/Units 01:06 03:49 04:15 WBC 3.1 L (4.5-11.0) K/mm3 Hgb 11.6 L (11.8-15.2) gm/dl Monocytes % (Manual) 12.0 H (0.0-7.3) % Seg Neutrophils # Man 1.6 L (1.8-7.7) K/mm3 Lymphocytes # (Manual) 0.5 L (1.2-5.4) K/mm3 POC ABG pH 7.159 L (7.35-7.45) POC ABG pCO2 32.9 L 70.0 H (35-45) POC ABG pO2 62 L 254 H (80-105) Potassium (3.6-5.0) mmol/L Carbon Dioxide (22-30) mmol/L Glucose (75-100) mg/dL Total Creatine Kinase (55-170) units/L 09/21/18 09/21/18 Range/Units 04:15 04:25 WBC (4.5-11.0) K/mm3 Hgb (11.8-15.2) gm/dl Monocytes % (Manual) (0.0-7.3) % Seg Neutrophils # Man (1.8-7.7) K/mm3 Lymphocytes # (Manual) (1.2-5.4) K/mm3 POC ABG pH (7.35-7.45) POC ABG pCO2 (35-45) POC ABG pO2 (80-105) Potassium 6.1 H* D (3.6-5.0) mmol/L Carbon Dioxide 19 L (22-30) mmol/L Glucose 108 H (75-100) mg/dL Total Creatine Kinase 685 H (55-170) units/L
--- NOTE | 2018-09-21 09:46 | Progress Note ---
Addendum entered and electronically signed by CAITLIN ESCALONA MD 09/21/18 11:06: Events noted. Critically ill. AF - possibility of atrial flutter with RVR (2:1 av conduction).Hypotension.Respiratory failure on vent. Prognosis is guarded. Discussed with the family members at bedside. Original Note: Assessment and Plan Pt developed respiratory distress and was intubated overnight and tx to CCU, remains intubated. CXR with mild pulmonary vascular congestion, no current clinical evidence of overt heart failure. He was also noted to develop tachycardia overnight, initially believed to be SVT and thus he was given IV adenosine which had no apparent effect. He currently appears to be in AFib with RVR on telemetry, HR 160s - 180s. He was initiated on cardizem gtt overnight. BPs labile, borderline hypotensive. Will initiate IV amiodarone and consider DCCV if unable to optimize HR chemically. Initiate heparin gtt in setting of AFib. Serum K+ 6.1 this AM, will repeat labwork. The patient has been seen in conjunction with Dr. Sorto who agrees with the assessment and plan of care. - Patient Problems (1) Sepsis Current Visit: Yes Status: Acute (2) HIV (human immunodeficiency virus infection) Current Visit: Yes Status: Chronic (3) AIDS Current Visit: Yes Status: Suspected (4) Neutropenia Current Visit: Yes Status: Acute (5) Pneumonia Current Visit: Yes Status: Acute (6) Diarrhea Current Visit: Yes Status: Acute (7) Bradycardia Current Visit: Yes Status: Acute (8) Hypothyroidism Current Visit: Yes Status: Suspected (9) Encephalopathy Current Visit: Yes Status: Acute Subjective Date of service: 09/21/18 Principal diagnosis: elevated LFTs/abnormal CT Interval history: pt was intubated overnight and tx to CCU, remains intubated. he was noted to develop tachycardia overnight, currently in apparent AFib with RVR on telemetry, HR 160s - 180s. He was initiated on cardizem gtt overnight. Objective Last Vital Signs Temp 100.8 F H 09/21/18 04:00 Pulse 183 H 09/21/18 07:57 Resp 30 H 09/21/18 06:00 BP 93/60 09/21/18 07:57 Pulse Ox 98 09/21/18 06:00 - Physical Examination General: Other (intubated) HEENT: Positive: PERRL Neck: Positive: trachea midline Cardiac: Positive: irregularly irregular, S1/S2, Tachycardia Lungs: Positive: Decreased Breath Sounds, Rhonchi, Ventilated Respirations Neuro: Positive: Grossly Intact Abdomen: Positive: Unremarkable Skin: Negative: Rash Extremities: Present: edema - Labs and Meds Cardiac Enzymes 09/21/18 Range/Units 04:25 CK-MB (CK-2) 3.5 (0.0-4.0) ng/mL CBC 09/21/18 Range/Units 04:15 WBC 3.1 L (4.5-11.0) K/mm3 RBC 4.15 (3.65-5.03) M/mm3 Hgb 11.6 L (11.8-15.2) gm/dl Hct 36.4 (35.5-45.6) % Plt Count 175 (140-440) K/mm3 Comprehensive Metabolic Panel 09/21/18 Range/Units 04:15 Sodium 137 (137-145) mmol/L Potassium 6.1 H* D (3.6-5.0) mmol/L Chloride 103.5 (98-107) mmol/L Carbon Dioxide 19 L (22-30) mmol/L BUN 12 (9-20) mg/dL Creatinine 1.1 (0.8-1.5) mg/dL Glucose 108 H (75-100) mg/dL Calcium 8.4 (8.4-10.2) mg/dL - Imaging and Cardiology Echo: report reviewed ( normal LV, no significant valvular abnormalities. ) - Telemetry EKG Rhythm: Atrial Fibrillation - EKG Sinus rhythms and dysrhythmias: sinus rhythm, sinus arrest or pause (Patient had very transient junctional rythm at rate of 35/mt,with sinus pause,lasted< one minute,reverted to judson S.R at >90/mt at 08:12 AM,09/18/2018.)
[2018-09-21] MEDS ORDERED: CORDARONE 150 MG in D5W 97 ML IV ONE (10:00)
[2018-09-21] MEDS: PEPCID IV SCH ×2 (10:42→22:03)
[2018-09-21] MEDS: DIFLUCAN 200 ML IV SCH (10:43)
[2018-09-21] MEDS: LEVAQUIN 750MG/150ML 750 MG/150 ML BAG IV SCH (10:43)
[2018-09-21] MEDS: CORDARONE 900 MG in D5W 482 ML IV SCH (10:51)
[2018-09-21] MEDS ORDERED: HEPARIN 10,000 UNITS/10 ML IV ONE (11:00)
--- NOTE | 2018-09-21 11:10 | Progress Note ---
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 He did not use condom consistently. - CD4=4 - VL=50,700 Elevated LFTs: resolved Neutropenia/thrombocytopenia -VAP bundle addressed - continue supplemental oxygen to keep sats > 90% - continue bronchodilators with pulmonary -vasopressor support as indicated to keep MAP>65 -Stop Bactrim, and start second line agents for PJP -Continue empiric and targeted anti-infective's per ID recs antibiotics per ID - begin daily SBT's soon after as tolerated - continue IV Amiodarone with further rate control per cardiology - diarrhea improving - monitor for drug-drug interactions - continue enteral nutrition as tolerated - PT/OT/ROM exercises as tolerated - mobility protocol for pressure ulcer prevention - continue GI prophylaxis -anticoagulated on heparin for atrial fibrillation per Cardiology -critical care bunndle addressed -king cathetr in this critically ill patient with acute kidney injuiry , requiring strict intake and output monitoring - continue other care per attending / other consultants ....... care plan discussed at length with his sister. Called ID re further discussions with the patient's sister re his HIV status CONDITION: CRITICAL PROGNOSIS: GUARDED CODE STATUS: FULL CODE The high probability of a clinically significant, sudden or life threatening deterioration of the [cardiac, respiratory and neurologic] system(s) required my full and direct attention, intervention and personal management. The aggregate critical care time was [65] minutes. This time is in addition to time spent performing reported procedures but includes the following: [x] Data Review and interpretation [x] Patient assessment and monitoring of vital signs [x] Documentation [x] Medication orders and management Subjective Date of service: 09/21/18 Principal diagnosis: elevated LFTs/abnormal CT Interval history: 33 y/o male with no PMH; admitted on 09/11/2018 due to 4 days-AMS/behavioral changes, nausea, voimiting, diarrhea, weight loss and cough: Patient is seen today for: Severe sepsis (present on admission with fever, tachycardia, hypotension and elevated lactate); Acute hypoxemic Respiratory failure; Bilateral pneumonia; Acute encephalopathy (Toxic / Metabolic); Atrial Fibrillation with RVR Seen and examined at bedside; 24hour events reviewed; nursing and respiratory care staff consulted; events overnight events reported to me and was managed overnight remotely. Required intubation and MVS for increasing work of breathing, not improving on NIPPV.; worsening encephaloapthy ; Lying in bed; sister and brother in law visiting; unresponsive with increased work of breathing; no emesis or overt aspiration; no seizures reported Objective - Exam Narrative Exam: Physical Exam: Constitutional: intubated, ETT at 24 cm at the lip Head, Ears, Nose: Normocephalic, atraumatic Eyes: Conjunctivae/corneas clear. No icterus. No ptosis. Neck: Supple, no meningeal signs Oral: intubated Cardiovascular: RRR, S1,S2, no murmurs, gallops or rubs Respiratory: Good air entry, clear to auscultation bilaterally GI: Soft, non-tender; bowel sounds normal. No peritoneal signs Musculoskeletal:Bilateral pedal edema, no cyanosis, upper extremity edema Skin: No rash or abscess Hem/Lymphatic: No palpable cervical or supraclavicular nodes. No lymphangitis Psych: no agitation Neurological: minimally responsive Vital Signs - 12hr 09/20/18 09/20/18 09/20/18 23:10 23:20 23:30 Temperature Pulse Rate 113 H 125 H 126 H Pulse Rate [ Anterior Bilateral Throughout] Pulse Rate [ Anterior Right Throughout] Pulse Rate [ From Monitor] Respiratory 17 43 H 28 H Rate Respiratory Rate [Anterior Bilateral Throughout] Respiratory Rate [Anterior Right Throughout] Blood Pressure 114/67 114/67 114/67 O2 Sat by Pulse 89 100 Oximetry 09/20/18 09/20/18 09/20/18 23:40 23:48 23:50 Temperature Pulse Rate 128 H 101 H 115 H Pulse Rate [ Anterior Bilateral Throughout] Pulse Rate [ Anterior Right Throughout] Pulse Rate [ From Monitor] Respiratory 16 35 H 25 H Rate Respiratory Rate [Anterior Bilateral Throughout] Respiratory Rate [Anterior Right Throughout] Blood Pressure 114/67 114/67 O2 Sat by Pulse 95 97 97 Oximetry 09/21/18 09/21/18 09/21/18 00:00 00:10 00:20 Temperature 100.6 F H Pulse Rate 110 H 91 H 105 H Pulse Rate [ Anterior Bilateral Throughout] Pulse Rate [ Anterior Right Throughout] Pulse Rate [ From Monitor] Respiratory 32 H 38 H 41 H Rate Respiratory Rate [Anterior Bilateral Throughout] Respiratory Rate [Anterior Right Throughout] Blood Pressure 107/77 107/77 107/77 O2 Sat by Pulse 92 96 92 Oximetry 09/21/18 09/21/18 09/21/18 00:30 00:40 00:41 Temperature Pulse Rate 99 H 98 H Pulse Rate [ Anterior Bilateral Throughout] Pulse Rate [ Anterior Right Throughout] Pulse Rate [ 146 H From Monitor] Respiratory 40 H 38 H 42 H Rate Respiratory Rate [Anterior Bilateral Throughout] Respiratory Rate [Anterior Right Throughout] Blood Pressure 107/77 107/77 O2 Sat by Pulse 83 L 93 92 Oximetry 09/21/18 09/21/18 09/21/18 00:50 01:00 01:10 Temperature Pulse Rate 105 H 117 H 126 H Pulse Rate [ Anterior Bilateral Throughout] Pulse Rate [ Anterior Right Throughout] Pulse Rate [ From Monitor] Respiratory 20 39 H 14 Rate Respiratory Rate [Anterior Bilateral Throughout] Respiratory Rate [Anterior Right Throughout] Blood Pressure 107/77 127/67 127/67 O2 Sat by Pulse 96 94 95 Oximetry 09/21/18 09/21/18 09/21/18 01:20 01:30 01:40 Temperature Pulse Rate 110 H 126 H 127 H Pulse Rate [ Anterior Bilateral Throughout] Pulse Rate [ Anterior Right Throughout] Pulse Rate [ From Monitor] Respiratory 34 H 33 H 32 H Rate Respiratory Rate [Anterior Bilateral Throughout] Respiratory Rate [Anterior Right Throughout] Blood Pressure 127/67 127/67 127/67 O2 Sat by Pulse 98 96 98 Oximetry 09/21/18 09/21/18 09/21/18 01:50 02:00 02:10 Temperature Pulse Rate 146 H 86 223 H Pulse Rate [ Anterior Bilateral Throughout] Pulse Rate [ Anterior Right Throughout] Pulse Rate [ From Monitor] Respiratory 35 H 21 26 H Rate Respiratory Rate [Anterior Bilateral Throughout] Respiratory Rate [Anterior Right Throughout] Blood Pressure 127/67 127/67 139/62 O2 Sat by Pulse 100 99 100 Oximetry 09/21/18 09/21/18 09/21/18 02:20 02:30 02:37 Temperature Pulse Rate 222 H 231 H 189 H Pulse Rate [ Anterior Bilateral Throughout] Pulse Rate [ Anterior Right Throughout] Pulse Rate [ From Monitor] Respiratory 14 16 Rate Respiratory Rate [Anterior Bilateral Throughout] Respiratory Rate [Anterior Right Throughout] Blood Pressure 119/48 129/63 183/134 O2 Sat by Pulse 88 100 Oximetry 09/21/18 09/21/18 09/21/18 02:39 02:40 02:50 Temperature Pulse Rate 122 H 223 H 190 H Pulse Rate [ Anterior Bilateral Throughout] Pulse Rate [ Anterior Right Throughout] Pulse Rate [ From Monitor] Respiratory 37 H 17 16 Rate Respiratory Rate [Anterior Bilateral Throughout] Respiratory Rate [Anterior Right Throughout] Blood Pressure 105/69 183/134 O2 Sat by Pulse 100 Oximetry 09/21/18 09/21/18 09/21/18 02:52 03:00 03:10 Temperature Pulse Rate 220 H 190 H 193 H Pulse Rate [ Anterior Bilateral Throughout] Pulse Rate [ Anterior Right Throughout] Pulse Rate [ From Monitor] Respiratory 16 17 Rate Respiratory Rate [Anterior Bilateral Throughout] Respiratory Rate [Anterior Right Throughout] Blood Pressure 103/50 111/65 102/69 O2 Sat by Pulse 98 100 Oximetry 09/21/18 09/21/18 09/21/18 03:20 03:30 03:40 Temperature Pulse Rate 196 H 198 H 183 H Pulse Rate [ Anterior Bilateral Throughout] Pulse Rate [ Anterior Right Throughout] Pulse Rate [ From Monitor] Respiratory 17 17 24 Rate Respiratory Rate [Anterior Bilateral Throughout] Respiratory Rate [Anterior Right Throughout] Blood Pressure 115/68 113/68 95/53 O2 Sat by Pulse 100 100 99 Oximetry 09/21/18 09/21/18 09/21/18 03:45 03:50 04:00 Temperature 100.8 F H Pulse Rate 190 H 182 H 181 H Pulse Rate [ Anterior Bilateral Throughout] Pulse Rate [ Anterior Right Throughout] Pulse Rate [ 180 H From Monitor] Respiratory 23 28 H Rate Respiratory Rate [Anterior Bilateral Throughout] Respiratory Rate [Anterior Right Throughout] Blood Pressure 110/70 85/60 98/63 O2 Sat by Pulse 100 94 Oximetry 09/21/18 09/21/18 09/21/18 04:10 04:20 04:30 Temperature Pulse Rate 183 H 184 H 183 H Pulse Rate [ Anterior Bilateral Throughout] Pulse Rate [ Anterior Right Throughout] Pulse Rate [ From Monitor] Respiratory 27 H 29 H 32 H Rate Respiratory Rate [Anterior Bilateral Throughout] Respiratory Rate [Anterior Right Throughout] Blood Pressure 98/63 98/63 89/59 O2 Sat by Pulse 95 97 98 Oximetry 09/21/18 09/21/18 09/21/18 04:40 04:50 05:00 Temperature Pulse Rate 183 H 185 H 169 H Pulse Rate [ Anterior Bilateral Throughout] Pulse Rate [ Anterior Right Throughout] Pulse Rate [ From Monitor] Respiratory 32 H 34 H 36 H Rate Respiratory Rate [Anterior Bilateral Throughout] Respiratory Rate [Anterior Right Throughout] Blood Pressure 89/59 89/59 97/57 O2 Sat by Pulse 98 99 94 Oximetry 09/21/18 09/21/18 09/21/18 05:01 05:10 05:20 Temperature Pulse Rate 188 H 175 H 179 H Pulse Rate [ Anterior Bilateral Throughout] Pulse Rate [ Anterior Right Throughout] Pulse Rate [ From Monitor] Respiratory 32 H 29 H Rate Respiratory Rate [Anterior Bilateral Throughout] Respiratory Rate [Anterior Right Throughout] Blood Pressure 96/58 89/59 90/51 O2 Sat by Pulse 95 96 Oximetry 09/21/18 09/21/18 09/21/18 05:30 05:40 05:50 Temperature Pulse Rate 179 H 180 H 179 H Pulse Rate [ Anterior Bilateral Throughout] Pulse Rate [ Anterior Right Throughout] Pulse Rate [ From Monitor] Respiratory 27 H 33 H 33 H Rate Respiratory Rate [Anterior Bilateral Throughout] Respiratory Rate [Anterior Right Throughout] Blood Pressure 86/52 90/51 83/56 O2 Sat by Pulse 97 97 97 Oximetry 09/21/18 09/21/18 09/21/18 06:00 06:10 06:20 Temperature Pulse Rate 180 H 183 H 182 H Pulse Rate [ Anterior Bilateral Throughout] Pulse Rate [ Anterior Right Throughout] Pulse Rate [ From Monitor] Respiratory 30 H 27 H 18 Rate Respiratory Rate [Anterior Bilateral Throughout] Respiratory Rate [Anterior Right Throughout] Blood Pressure 87/57 87/57 76/52 O2 Sat by Pulse 98 98 98 Oximetry 09/21/18 09/21/18 09/21/18 06:30 06:40 06:50 Temperature Pulse Rate 183 H 182 H 184 H Pulse Rate [ Anterior Bilateral Throughout] Pulse Rate [ Anterior Right Throughout] Pulse Rate [ From Monitor] Respiratory 24 32 H 26 H Rate Respiratory Rate [Anterior Bilateral Throughout] Respiratory Rate [Anterior Right Throughout] Blood Pressure 85/57 82/49 95/59 O2 Sat by Pulse 98 98 99 Oximetry 09/21/18 09/21/18 09/21/18 07:00 07:10 07:20 Temperature Pulse Rate 182 H 183 H 182 H Pulse Rate [ Anterior Bilateral Throughout] Pulse Rate [ Anterior Right Throughout] Pulse Rate [ From Monitor] Respiratory 31 H 36 H 23 Rate Respiratory Rate [Anterior Bilateral Throughout] Respiratory Rate [Anterior Right Throughout] Blood Pressure 95/57 95/59 95/59 O2 Sat by Pulse 98 99 99 Oximetry 09/21/18 09/21/18 09/21/18 07:30 07:40 07:50 Temperature Pulse Rate 185 H 183 H 182 H Pulse Rate [ Anterior Bilateral Throughout] Pulse Rate [ Anterior Right Throughout] Pulse Rate [ From Monitor] Respiratory 33 H 33 H 24 Rate Respiratory Rate [Anterior Bilateral Throughout] Respiratory Rate [Anterior Right Throughout] Blood Pressure 93/60 95/57 95/57 O2 Sat by Pulse 99 99 99 Oximetry 09/21/18 09/21/18 09/21/18 07:57 08:00 08:10 Temperature 100.6 F H Pulse Rate 183 H 184 H 181 H Pulse Rate [ Anterior Bilateral Throughout] Pulse Rate [ Anterior Right Throughout] Pulse Rate [ From Monitor] Respiratory 26 H 18 Rate Respiratory Rate [Anterior Bilateral Throughout] Respiratory Rate [Anterior Right Throughout] Blood Pressure 93/60 89/61 93/60 O2 Sat by Pulse 99 100 Oximetry 09/21/18 09/21/18 09/21/18 08:20 08:30 08:40 Temperature Pulse Rate 180 H 181 H 178 H Pulse Rate [ Anterior Bilateral Throughout] Pulse Rate [ Anterior Right Throughout] Pulse Rate [ From Monitor] Respiratory 16 20 38 H Rate Respiratory Rate [Anterior Bilateral Throughout] Respiratory Rate [Anterior Right Throughout] Blood Pressure 93/60 85/53 85/53 O2 Sat by Pulse 100 100 99 Oximetry 09/21/18 09/21/18 09/21/18 08:50 09:00 09:10 Temperature Pulse Rate 179 H 178 H 175 H Pulse Rate [ Anterior Bilateral Throughout] Pulse Rate [ Anterior Right Throughout] Pulse Rate [ From Monitor] Respiratory 34 H 29 H 19 Rate Respiratory Rate [Anterior Bilateral Throughout] Respiratory Rate [Anterior Right Throughout] Blood Pressure 85/53 103/52 85/53 O2 Sat by Pulse 100 100 99 Oximetry 09/21/18 09/21/18 09/21/18 09:20 09:30 09:37 Temperature Pulse Rate 178 H 175 H 176 H Pulse Rate [ Anterior Bilateral Throughout] Pulse Rate [ Anterior Right Throughout] Pulse Rate [ From Monitor] Respiratory 28 H 32 H Rate Respiratory Rate [Anterior Bilateral Throughout] Respiratory Rate [Anterior Right Throughout] Blood Pressure 85/53 112/46 112/46 O2 Sat by Pulse 100 99 100 Oximetry 09/21/18 09/21/18 09/21/18 09:40 09:50 10:02 Temperature Pulse Rate 177 H 174 H Pulse Rate [ 175 H Anterior Bilateral Throughout] Pulse Rate [ 173 H Anterior Right Throughout] Pulse Rate [ From Monitor] Respiratory 31 H 24 Rate Respiratory 25 H Rate [Anterior Bilateral Throughout] Respiratory 25 H Rate [Anterior Right Throughout] Blood Pressure 112/46 112/46 O2 Sat by Pulse 100 100 Oximetry Constitutional: lethargic, agitated, appears uncomfortable, other Eyes: non-icteric ENT: oropharynx moist Neck: supple, no lymphadenopathy Ascultation: Bilateral: rhonchi Cardiovascular: regular rate and rhythm Gastrointestinal: normoactive bowel sounds, soft Integumentary: normal Extremities: no cyanosis, no edema Neurologic: pupils equal and round, CN II-XII normal Psychiatric: anxious, depressed CBC and BMP: 09/25/18 03:45 09/23/18 08:10 ABG, PT/INR, D-dimer: ABG POC ABG pH 7.301 (7.35-7.45) L 09/21/18 09:59 POC ABG pCO2 37.4 (35-45) 09/21/18 09:59 POC ABG pO2 109 (80-105) H 09/21/18 09:59 POC ABG HCO3 18.4 09/21/18 09:59 POC ABG Total CO2 20 09/21/18 09:59 POC ABG O2 Sat 98 09/21/18 09:59 PT/INR, D-dimer PT 14.5 Sec. (12.2-14.9) 09/15/18 09:33 INR 1.09 (0.87-1.13) 09/15/18 09:33 Abnormal lab findings: Abnormal Labs 09/11/18 09/11/18 09/11/18 18:00 18:00 18:00 WBC 1.9 L* Hgb Hct Plt Count 130 L Monocytes % (Manual) 16.0 H Seg Neutrophils # Man 0.9 L Abs Lymphs (Manual) Lymphocytes # (Manual) 0.5 L POC ABG pH POC ABG pCO2 POC ABG pO2 Sodium 131 L Potassium Chloride Carbon Dioxide 17 L BUN 21 H Creatinine Glucose 126 H POC Glucose Lactic Acid 2.60 H* Calcium 8.1 L AST 123 H ALT 115 H Total Creatine Kinase Total Protein Albumin 3.0 L Vitamin B12 TSH Free T4 CSF VDRL Lymph Enumerat CD4/CD8 Absolute CD3 Count % CD4 Cells Absolute CD4 Count % CD8 Cells Absolute CD19 Count T.pallidum Ab (FTA-ABS) HIV-1 RNA PCR copies/ml HIV-1 RNA (PCR) log 09/11/18 09/13/18 09/13/18 19:01 04:28 07:31 WBC 2.0 L Hgb Hct Plt Count 116 L Monocytes % (Manual) 8.0 H Seg Neutrophils # Man 1.0 L Abs Lymphs (Manual) Lymphocytes # (Manual) 0.5 L POC ABG pH POC ABG pCO2 POC ABG pO2 Sodium Potassium Chloride 110.4 H Carbon Dioxide 19 L BUN Creatinine Glucose POC Glucose Lactic Acid 3.70 H* Calcium 7.9 L AST ALT Total Creatine Kinase Total Protein Albumin Vitamin B12 TSH Free T4 CSF VDRL Lymph Enumerat CD4/CD8 Absolute CD3 Count % CD4 Cells Absolute CD4 Count % CD8 Cells Absolute CD19 Count T.pallidum Ab (FTA-ABS) HIV-1 RNA PCR copies/ml HIV-1 RNA (PCR) log 09/13/18 09/13/18 09/13/18 07:31 12:29 12:29 WBC Hgb Hct Plt Count Monocytes % (Manual) Seg Neutrophils # Man Abs Lymphs (Manual) 309 L Lymphocytes # (Manual) POC ABG pH POC ABG pCO2 POC ABG pO2 Sodium Potassium Chloride Carbon Dioxide BUN Creatinine Glucose POC Glucose Lactic Acid Calcium AST 70 H ALT 68 H Total Creatine Kinase Total Protein Albumin 2.5 L Vitamin B12 TSH Free T4 CSF VDRL Lymph Enumerat CD4/CD8 0.01 L Absolute CD3 Count 220 L % CD4 Cells 1 L Absolute CD4 Count 4 L % CD8 Cells 70 H Absolute CD19 Count 54 L T.pallidum Ab (FTA-ABS) HIV-1 RNA PCR copies/ml 72792 H HIV-1 RNA (PCR) log 4.71 H 09/14/18 09/14/18 09/15/18 07:17 16:34 05:05 WBC 1.6 L* Hgb 10.4 L Hct 31.1 L D Plt Count 113 L Monocytes % (Manual) Seg Neutrophils # Man Abs Lymphs (Manual) Lymphocytes # (Manual) POC ABG pH POC ABG pCO2 POC ABG pO2 Sodium Potassium 3.4 L Chloride Carbon Dioxide 18 L BUN Creatinine Glucose 104 H POC Glucose Lactic Acid Calcium 7.6 L AST 49 H ALT Total Creatine Kinase Total Protein Albumin 2.5 L Vitamin B12 TSH Free T4 CSF VDRL Lymph Enumerat CD4/CD8 Absolute CD3 Count % CD4 Cells Absolute CD4 Count % CD8 Cells Absolute CD19 Count T.pallidum Ab (FTA-ABS) Reactive H HIV-1 RNA PCR copies/ml HIV-1 RNA (PCR) log 09/15/18 09/15/18 09/16/18 05:05 Unknown 06:55 WBC 2.8 L Hgb 10.9 L Hct 33.5 L Plt Count 135 L Monocytes % (Manual) Seg Neutrophils # Man Abs Lymphs (Manual) Lymphocytes # (Manual) POC ABG pH POC ABG pCO2 POC ABG pO2 Sodium Potassium Chloride 107.9 H Carbon Dioxide 18 L BUN 6 L Creatinine Glucose POC Glucose Lactic Acid Calcium 7.4 L AST ALT Total Creatine Kinase Total Protein Albumin Vitamin B12 TSH Free T4 CSF VDRL Reactive 1:8 H Lymph Enumerat CD4/CD8 Absolute CD3 Count % CD4 Cells Absolute CD4 Count % CD8 Cells Absolute CD19 Count T.pallidum Ab (FTA-ABS) HIV-1 RNA PCR copies/ml HIV-1 RNA (PCR) log 09/16/18 09/16/18 09/16/18 11:41 11:41 11:41 WBC Hgb Hct Plt Count Monocytes % (Manual) Seg Neutrophils # Man Abs Lymphs (Manual) Lymphocytes # (Manual) POC ABG pH POC ABG pCO2 POC ABG pO2 Sodium Potassium Chloride Carbon Dioxide BUN Creatinine Glucose POC Glucose Lactic Acid Calcium AST ALT Total Creatine Kinase Total Protein Albumin Vitamin B12 934.5 H TSH 4.210 H Free T4 0.72 L CSF VDRL Lymph Enumerat CD4/CD8 Absolute CD3 Count % CD4 Cells Absolute CD4 Count % CD8 Cells Absolute CD19 Count T.pallidum Ab (FTA-ABS) HIV-1 RNA PCR copies/ml HIV-1 RNA (PCR) log 09/16/18 09/17/18 09/17/18 15:43 05:13 05:13 WBC 2.0 L Hgb 10.9 L Hct 32.7 L Plt Count Monocytes % (Manual) Seg Neutrophils # Man Abs Lymphs (Manual) Lymphocytes # (Manual) POC ABG pH POC ABG pCO2 29.3 L POC ABG pO2 70 L Sodium Potassium Chloride 107.2 H Carbon Dioxide 21 L BUN 3 L Creatinine 0.7 L Glucose POC Glucose Lactic Acid Calcium 7.9 L AST ALT Total Creatine Kinase Total Protein 6.1 L Albumin 2.6 L Vitamin B12 TSH Free T4 CSF VDRL Lymph Enumerat CD4/CD8 Absolute CD3 Count % CD4 Cells Absolute CD4 Count % CD8 Cells Absolute CD19 Count T.pallidum Ab (FTA-ABS) HIV-1 RNA PCR copies/ml HIV-1 RNA (PCR) log 09/17/18 09/18/18 09/18/18 21:57 12:46 12:46 WBC Hgb Hct Plt Count Monocytes % (Manual) Seg Neutrophils # Man Abs Lymphs (Manual) Lymphocytes # (Manual) POC ABG pH POC ABG pCO2 POC ABG pO2 Sodium Potassium Chloride Carbon Dioxide BUN Creatinine Glucose POC Glucose 108 H Lactic Acid Calcium AST ALT Total Creatine Kinase Total Protein Albumin Vitamin B12 TSH 5.190 H Free T4 0.75 L CSF VDRL Lymph Enumerat CD4/CD8 Absolute CD3 Count % CD4 Cells Absolute CD4 Count % CD8 Cells Absolute CD19 Count T.pallidum Ab (FTA-ABS) HIV-1 RNA PCR copies/ml HIV-1 RNA (PCR) log 09/19/18 09/19/18 09/20/18 04:57 04:57 05:33 WBC 2.1 L Hgb 11.4 L Hct 34.2 L Plt Count Monocytes % (Manual) Seg Neutrophils # Man Abs Lymphs (Manual) Lymphocytes # (Manual) POC ABG pH POC ABG pCO2 POC ABG pO2 Sodium 136 L Potassium Chloride Carbon Dioxide 19 L 19 L BUN 6 L 7 L Creatinine Glucose POC Glucose Lactic Acid Calcium 7.9 L AST ALT Total Creatine Kinase Total Protein Albumin Vitamin B12 TSH Free T4 CSF VDRL Lymph Enumerat CD4/CD8 Absolute CD3 Count % CD4 Cells Absolute CD4 Count % CD8 Cells Absolute CD19 Count T.pallidum Ab (FTA-ABS) HIV-1 RNA PCR copies/ml HIV-1 RNA (PCR) log 09/20/18 09/21/18 09/21/18 06:52 01:06 03:49 WBC 2.5 L Hgb Hct Plt Count Monocytes % (Manual) Seg Neutrophils # Man Abs Lymphs (Manual) Lymphocytes # (Manual) POC ABG pH 7.159 L POC ABG pCO2 32.9 L 70.0 H POC ABG pO2 62 L 254 H Sodium Potassium Chloride Carbon Dioxide BUN Creatinine Glucose POC Glucose Lactic Acid Calcium AST ALT Total Creatine Kinase Total Protein Albumin Vitamin B12 TSH Free T4 CSF VDRL Lymph Enumerat CD4/CD8 Absolute CD3 Count % CD4 Cells Absolute CD4 Count % CD8 Cells Absolute CD19 Count T.pallidum Ab (FTA-ABS) HIV-1 RNA PCR copies/ml HIV-1 RNA (PCR) log 09/21/18 09/21/18 09/21/18 04:15 04:15 04:25 WBC 3.1 L Hgb 11.6 L Hct Plt Count Monocytes % (Manual) 12.0 H Seg Neutrophils # Man 1.6 L Abs Lymphs (Manual) Lymphocytes # (Manual) 0.5 L POC ABG pH POC ABG pCO2 POC ABG pO2 Sodium Potassium 6.1 H* D Chloride Carbon Dioxide 19 L BUN Creatinine Glucose 108 H POC Glucose Lactic Acid Calcium AST ALT Total Creatine Kinase 685 H Total Protein Albumin Vitamin B12 TSH Free T4 CSF VDRL Lymph Enumerat CD4/CD8 Absolute CD3 Count % CD4 Cells Absolute CD4 Count % CD8 Cells Absolute CD19 Count T.pallidum Ab (FTA-ABS) HIV-1 RNA PCR copies/ml HIV-1 RNA (PCR) log 09/21/18 09:59 WBC Hgb Hct Plt Count Monocytes % (Manual) Seg Neutrophils # Man Abs Lymphs (Manual) Lymphocytes # (Manual) POC ABG pH 7.301 L POC ABG pCO2 POC ABG pO2 109 H Sodium Potassium Chloride Carbon Dioxide BUN Creatinine Glucose POC Glucose Lactic Acid Calcium AST ALT Total Creatine Kinase Total Protein Albumin Vitamin B12 TSH Free T4 CSF VDRL Lymph Enumerat CD4/CD8 Absolute CD3 Count % CD4 Cells Absolute CD4 Count % CD8 Cells Absolute CD19 Count T.pallidum Ab (FTA-ABS) HIV-1 RNA PCR copies/ml HIV-1 RNA (PCR) log
[2018-09-21 11:12] LABS: Hematocrit 35.6 % (35.5-45.6); Hemoglobin 11.7 gm/dl (11.8-15.2)
[2018-09-21 11:14] LABS: Albumin 2.8 g/dL (3.9-5); Calcium 8.1 mg/dL (8.4-10.2)
[2018-09-21] MEDS ORDERED: PROVENTIL IH ONE (11:45)
[2018-09-21] MEDS ORDERED: CALCIUM GLUCONATE 1,000 MG in NACL 0.9% 100 ML IV ONE (12:00)
[2018-09-21] MEDS: KIONEX PO SCH ×2 (12:12→17:14)
[2018-09-21] MEDS: MEPRON PO SCH ×2 (12:13→22:04)
--- NOTE | 2018-09-21 13:32 | XRay Report ---
AP CHEST: HISTORY: Right arm PICC placement The right arm PICC terminates in the lower SVC. The endotracheal tube and feeding tube are unchanged in position since earlier today at 0224 hours. Normal heart size and pulmonary vessels. A right perihilar opacity is identified which could represent infiltrate or atelectasis. The left lung is clear. No pleural effusion or pneumothorax. IMPRESSION: Right arm PICC as described. Right perihilar hilar opacity which probably represents atelectatic changes. This
[2018-09-21] MEDS ORDERED: NACL 0.9% 500 ML 500 ML IV ONE (14:00)
--- NOTE | 2018-09-21 14:01 | Progress Note ---
Assessment and Plan Assessment and plan: Severe Sepsis. Etiology secondary to bacterial pneumonia +/- gastroenteritis with newly diagnosed with HIV. Continue IV antibiotics per ID. Acute hypoxemic respiratory failure. Etiology secondary to sepsis/multifocal pneumonia with probable concomitant aspiration. Bilateral pneumonia. Etiology likely secondary to PJP Pneumonia. Chest x-ray, CT scan reveals multifocal pneumonia. Follow-up tracheal aspirate. Toxic metabolic encephalopathy. 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 Continue antibiotics per ID. Gastroenteritis. Follow-up stool studies and CT scan of the abdomen and pelvis--check for colitis. Continue Zosyn and Flagyl. A. fib with RVR. IV amiodarone and consider DCCV if unable to optimize HR chemically. 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 Repeat LP yesterday showed no pleocytosis, protein still high, low glucose (WBC 4, RBC 587, Lymph 71%, protein 123, glucose 32 on 09/19/2018). Should have good prognosis, but his mentation is not better after D4 of penicillin G. It may represent also effects from HIV virus. Per ID Diarrhea. Resolved, etiology likely secondary to Giardia. Giardia antigen positive in stool. Oral candidiasis. Continue fluconazole. HIV/AIDS. New Diagnosis. Neutropenia/thrombocytopenia. Likely from HIV myelosuppression, sepsis Prognosis is guarded. The high probability of a clinically significant, sudden or life threatening deterioration of the [cardiac, respiratory and neuro] system(s) required my full and direct attention, intervention and personal management. The aggregate critical care time was [34] minutes. This time is in addition to time spent pe rforming reported procedures but includes the following: [x] Data Review and interpretation [x] Patient assessment and monitoring of vital signs [x] Documentation [x] Medication orders and management History Interval history: Patient is 33 yo initially presented with diarrhea, found to have pneumonia, sepsis, HIV/AIDS(new diagnosis) with CD4 count of 4. He was started on Bactrim for poss PCP. His mental status has worsened with confusion, lethargy. LP done . He is diagnosed with neurosyphilis. Started on Penicillin. Closest family is sister in [place], and I spoke to her several times about diagnosis but did not tell her about HIV/AIDS because of patient confidentiality. The patient decompensated on 09/20/18 with acute hypoxemic respiratory failure and worsening toxic metabolic encephalopathy requiring transfer to ICU and intubation. She now remains on mechanical ventilation Hospitalist Physical - Constitutional Vitals: Temp Pulse Resp BP Pulse Ox 100.6 F H 175 H 25 H 112/46 100 09/21/18 08:00 09/21/18 10:02 09/21/18 10:02 09/21/18 09:50 09/21/18 09:50 General appearance: Present: no acute distress Results - Labs CBC & Chem 7: 09/21/18 11:00 09/21/18 10:07 Labs: Laboratory Last Values WBC 3.1 K/mm3 (4.5-11.0) L 09/21/18 04:15 RBC 4.15 M/mm3 (3.65-5.03) 09/21/18 04:15 Hgb 11.7 gm/dl (11.8-15.2) L 09/21/18 11:00 Hct 35.6 % (35.5-45.6) 09/21/18 11:00 MCV 88 fl (84-94) 09/21/18 04:15 MCH 28 pg (28-32) 09/21/18 04:15 MCHC 32 % (32-34) 09/21/18 04:15 RDW 14.8 % (13.2-15.2) 09/21/18 04:15 Plt Count 149 K/mm3 (140-440) 09/21/18 11:00 [place] % (Auto) Sales Account Coordinator 09/21/18 04:15 Add Manual Diff Complete 09/21/18 04:15 Total Counted 100 09/21/18 04:15 Seg Neuts % (Manual) 52.0 % (40.0-70.0) 09/21/18 04:15 Band Neutrophils % 18.0 % 09/21/18 04:15 Lymphocytes % (Manual) 16.0 % (13.4-35.0) 09/21/18 04:15 Reactive Lymphs % (Man) 0 % 09/21/18 04:15 Monocytes % (Manual) 12.0 % (0.0-7.3) H 09/21/18 04:15 Eosinophils % (Manual) 0 % (0.0-4.3) 09/21/18 04:15 Basophils % (Manual) 0 % (0.0-1.8) 09/21/18 04:15 Metamyelocytes % 0 % 09/21/18 04:15 Myelocytes % 1.0 % 09/21/18 04:15 Promyelocytes % 1.0 % 09/21/18 04:15 Blast Cells % 0 % 09/21/18 04:15 Nucleated RBC % Not Reportable 09/21/18 04:15 Seg Neutrophils # Man 1.6 K/mm3 (1.8-7.7) L 09/21/18 04:15 Band Neutrophils # 0.6 K/mm3 09/21/18 04:15 Abs Lymphs (Manual) 309 cells/uL (850-3900) L 09/13/18 12:29 Lymphocytes # (Manual) 0.5 K/mm3 (1.2-5.4) L 09/21/18 04:15 Abs React Lymphs (Man) 0.0 K/mm3 09/21/18 04:15 Monocytes # (Manual) 0.4 K/mm3 (0.0-0.8) 09/21/18 04:15 Eosinophils # (Manual) 0.0 K/mm3 (0.0-0.4) 09/21/18 04:15 Basophils # (Manual) 0.0 K/mm3 (0.0-0.1) 09/21/18 04:15 Metamyelocytes # 0.0 K/mm3 09/21/18 04:15 Myelocytes # 0.0 K/mm3 09/21/18 04:15 Promyelocytes # 0.0 K/mm3 09/21/18 04:15 Blast Cells # 0.0 K/mm3 09/21/18 04:15 WBC Morphology Not Reportable 09/21/18 04:15 Hypersegmented Neuts Not Reportable 09/21/18 04:15 Hyposegmented Neuts Not Reportable 09/21/18 04:15 Hypogranular Neuts Not Reportable 09/21/18 04:15 Smudge Cells Not Reportable 09/21/18 04:15 Toxic Granulation Not Reportable 09/21/18 04:15 Toxic Vacuolation Not Reportable 09/21/18 04:15 Dohle Bodies Not Reportable 09/21/18 04:15 Pelger-Huet Anomaly Not Reportable 09/21/18 04:15 Giovanna Rods Not Reportable 09/21/18 04:15 Platelet Estimate Appears normal 09/21/18 04:15 Clumped Platelets Not Reportable 09/21/18 04:15 Plt Clumps, EDTA Not Reportable 09/21/18 04:15 Large Platelets Not Reportable 09/21/18 04:15 Giant Platelets Not Reportable 09/21/18 04:15 Platelet Satelliting Not Reportable 09/21/18 04:15 Plt Morphology Comment Not Reportable 09/21/18 04:15 RBC Morphology Not Reportable 09/21/18 04:15 Dimorphic RBCs Not Reportable 09/21/18 04:15 Polychromasia Not Reportable 09/21/18 04:15 Hypochromasia 1+ 09/21/18 04:15 Poikilocytosis Not Reportable 09/21/18 04:15 Anisocytosis 1+ 09/21/18 04:15 Microcytosis Few 09/21/18 04:15 Macrocytosis Not Reportable 09/21/18 04:15 Spherocytes Not Reportable 09/21/18 04:15 Pappenheimer Bodies Not Reportable 09/21/18 04:15 Sickle Cells Not Reportable 09/21/18 04:15 Target Cells Rare 09/21/18 04:15 Tear Drop Cells Not Reportable 09/21/18 04:15 Ovalocytes 1+ 09/21/18 04:15 Stomatocytes Few 09/21/18 04:15 Helmet Cells Not Reportable 09/21/18 04:15 [place] Bodies Not Reportable 09/21/18 04:15 [place] Rings Not Reportable 09/21/18 04:15 Dioni Cells Not Reportable 09/21/18 04:15 Bite Cells Not Reportable 09/21/18 04:15 Crenated Cell Not Reportable 09/21/18 04:15 Elliptocytes Few 09/21/18 04:15 Acanthocytes (Spur) Not Reportable 09/21/18 04:15 Rouleaux Not Reportable 09/21/18 04:15 Hemoglobin C Crystals Not Reportable 09/21/18 04:15 Schistocytes Not Reportable 09/21/18 04:15 Malaria parasites Not Reportable 09/21/18 04:15 Kieran Bodies Not Reportable 09/21/18 04:15 Hem Pathologist Commnt No 09/21/18 04:15 PT 14.5 Sec. (12.2-14.9) 09/15/18 09:33 INR 1.09 (0.87-1.13) 09/15/18 09:33 POC ABG pH 7.301 (7.35-7.45) L 09/21/18 09:59 POC ABG pCO2 37.4 (35-45) 09/21/18 09:59 POC ABG pO2 109 (80-105) H 09/21/18 09:59 POC ABG HCO3 18.4 09/21/18 09:59 POC ABG Total CO2 20 09/21/18 09:59 POC ABG O2 Sat 98 09/21/18 09:59 POC ABG Base Excess -8 09/21/18 09:59 FiO2 50 % 09/21/18 09:59 Sodium 139 mmol/L (137-145) 09/21/18 10:07 Potassium 6.5 mmol/L (3.6-5.0) H* 09/21/18 10:07 Chloride 103.6 mmol/L (98-107) 09/21/18 10:07 Carbon Dioxide 18 mmol/L (22-30) L 09/21/18 10:07 Anion Gap 24 mmol/L 09/21/18 10:07 BUN 20 mg/dL (9-20) 09/21/18 10:07 Creatinine 2.1 mg/dL (0.8-1.5) H D 09/21/18 10:07 Estimated GFR 44 ml/min 09/21/18 10:07 BUN/Creatinine Ratio 10 % 09/21/18 10:07 Glucose 75 mg/dL (75-100) 09/21/18 10:07 POC Glucose 101 (70-105) 09/21/18 05:54 Lactic Acid 0.90 mmol/L (0.7-2.0) 09/11/18 20:17 Calcium 8.1 mg/dL (8.4-10.2) L 09/21/18 10:07 Magnesium 2.10 mg/dL (1.7-2.3) 09/21/18 10:07 Total Bilirubin 0.30 mg/dL (0.1-1.2) 09/21/18 10:07 Direct Bilirubin < 0.2 mg/dL (0-0.2) 09/13/18 07:31 AST 94 units/L (5-40) H 09/21/18 10:07 ALT 28 units/L (7-56) 09/21/18 10:07 Alkaline Phosphatase 57 units/L (35-129) 09/21/18 10:07 Ammonia 47.0 umol/L (25-60) 09/16/18 11:41 Total Creatine Kinase 685 units/L (55-170) H 09/21/18 04:25 CK-MB (CK-2) 3.5 ng/mL (0.0-4.0) 09/21/18 04:25 CK-MB (CK-2) Rel Index 0.5 (0-4) 09/21/18 04:25 NT-Pro-B Natriuret Pep 145.9 pg/mL (0-450) 09/18/18 16:07 Total Protein 6.8 g/dL (6.3-8.2) 09/21/18 10:07 Albumin 2.8 g/dL (3.9-5) L 09/21/18 10:07 Albumin/Globulin Ratio 0.7 % 09/21/18 10:07 Vitamin B12 934.5 pg/mL (211-911) H 09/16/18 11:41 TSH 5.190 mlU/mL (0.270-4.200) H 09/18/18 12:46 Free T4 0.75 ng/dL (0.76-1.46) L 09/18/18 12:46 Urine Color [place] (Yellow) 09/11/18 Unknown Urine Turbidity Clear (Clear) 09/11/18 Unknown Urine pH 5.0 (5.0-7.0) 09/11/18 Unknown Ur Specific [place] 1.016 (1.003-1.030) 09/11/18 Unknown Urine Protein <15 mg/dl mg/dL (Negative) 09/11/18 Unknown Urine Glucose (UA) Neg mg/dL (Negative) 09/11/18 Unknown Urine Ketones Neg mg/dL (Negative) 09/11/18 Unknown Urine Blood Sm (Negative) 09/11/18 Unknown Urine Nitrite Neg (Negative) 09/11/18 Unknown Urine Bilirubin Neg (Negative) 09/11/18 Unknown Urine Urobilinogen < 2.0 mg/dL (<2.0) 09/11/18 Unknown Ur Leukocyte Esterase Neg (Negative) 09/11/18 Unknown Urine WBC (Auto) 1.0 /HPF (0.0-6.0) 09/11/18 Unknown Urine RBC (Auto) 3.0 /HPF (0.0-6.0) 09/11/18 Unknown Urine Mucus Few /HPF 09/11/18 Unknown CSF Appearance Clear 09/19/18 15:00 CSF Color Colorless 09/19/18 15:00 CSF WBC 4 /mm3 (1-10) 09/19/18 15:00 CSF RBC 583 /mm3 (0-0) 09/19/18 15:00 CSF Seg Neutrophils 21.4 % (0-6) 09/19/18 15:00 CSF Lymphocytes % 71.4 % (40-80) 09/19/18 15:00 CSF Reactive Lymphs 0 % 09/19/18 15:00 CSF Monocytes % 7.1 % (15-45) 09/19/18 15:00 CSF Eosinophils % 0 % 09/19/18 15:00 CSF Basophils 0 % 09/19/18 15:00 CSF Pathologist Review C 09/19/18 15:00 CSF Glucose 32 mg/dL 09/19/18 15:00 CSF Total Protein 123 mg/dL 09/19/18 15:00 CSF VDRL Reactive 1:8 (Nonreactive) H 09/15/18 Unknown Urine Opiates Screen Presumptive negative 09/17/18 15:52 Urine Methadone Screen Presumptive negative 09/17/18 15:52 Ur Barbiturates Screen Presumptive negative 09/17/18 15:52 Ur Phencyclidine Scrn Presumptive negative 09/17/18 15:52 Ur Amphetamines Screen Presumptive negative 09/17/18 15:52 U Benzodiazepines Scrn Presumptive negative 09/17/18 15:52 Urine Cocaine Screen Presumptive negative 09/17/18 15:52 U Marijuana (THC) Screen Presumptive negative 09/17/18 15:52 Drugs of Abuse Note Disclamer 09/17/18 15:52 Lymph Enumerat CD4/CD8 0.01 (0.86-5.00) L 09/13/18 12:29 % CD3 Cells 71 % (57-85) 09/13/18 12:29 Absolute CD3 Count 220 cells/uL (840-3060) L 09/13/18 12:29 % CD4 Cells 1 % (30-61) L 09/13/18 12:29 Absolute CD4 Count 4 cells/uL (490-1740) L 09/13/18 12:29 % CD8 Cells 70 % (12-42) H 09/13/18 12:29 Absolute CD8 Count 216 cells/uL (180-1170) 09/13/18 12:29 % CD19 Cells 17 % (6-29) 09/13/18 12:29 Absolute CD19 Count 54 cells/uL (110-660) L 09/13/18 12:29 RPR Titer 1:16 09/13/18 12:29 RPR Reactive (Nonreactive) 09/13/18 12:29 T.pallidum Ab (FTA-ABS) Reactive (Nonreactive) H 09/14/18 16:34 C. difficile Toxin A&B Negative (Negative) 09/12/18 05:30 Hepatitis A IgM Ab Non-reactive (NonReactive) 09/13/18 12:29 Hep Bs Antigen Non-reactive (Negative) 09/13/18 12:29 Hep B Core IgM Ab Non-reactive (NonReactive) 09/13/18 12:29 Hepatitis C Antibody Non-reactive (NonReactive) 09/13/18 12:29 HIV-1 Antibody See scanned result 09/11/18 19:14 HIV-1 RNA PCR copies/ml 20370 Copies/mL H 09/13/18 12:29 HIV-1 RNA (PCR) log 4.71 Log cps/mL H 09/13/18 12:29 HIV-2 Ab (Immunoblot) See scanned result 09/11/18 19:14 HIV 1&2 Antibody Rapid Reactive (Non React) 09/11/18 19:14 HIV P24 Antigen Non react (Non React) 09/11/18 19:14 Influenza A (Rapid) Negative (Negative) 09/13/18 16:05 Influenza A (RT-PCR) Negative (Negative) 09/13/18 16:05 Influenza B (Rapid) Negative (Negative) 09/13/18 16:05 Influenza B (RT-PCR) Negative (Negative) 09/13/18 16:05 Toxoplasma IgG Ab <7.20 IU/mL (<7.20) 09/16/18 12:09 Nutrition/Malnutrition Assess - Dietary Evaluation Nutrition/Malnutrition Findings: Nutrition Notes Start: 09/12/18 17:45 Freq: Status: Active Protocol: Document 09/19/18 15:49 OL (Rec: 09/19/18 15:54 OL [id number]) Nutrition Notes Need for Assessment generated from: MD Order Initial or Follow up Reassessment Current Diagnosis Sepsis Other Pertinent Diagnosis Newly dx HIV, Bilat pneu Current Diet NPO Labs/Tests Reviewed Pertinent Medications Reviewed Height 6 ft Weight 102 kg [place] Body Weight (kg) 80.90 BMI 30.4 Subjective/Other Information RD consult for TF. Pt. with severe pharyngeal swallowing disfunction. 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 requiring enteral nutrition Diagnosis Progress(for reassessment Worsened documentation) Is patient on ventilator? No Is Patient Ambulatory and/or Out of Bed Yes REE-([place]-ambulatory/OOB) [ 2603.900 [id number]] Kcal/Kg value to use for calculation 21 Approximate Energy Requirements Using 2142 kcal/Kg Calculation Used for Recommendations Kcal/kg Additional Notes Pro needs 0.8-1g/kg adjBW: 73- 91g/day Fluid needs 1ml/kcal Nutrition Intervention Change Diet Order: TF Nutrition Support: Osmolite 1.5 at 60mL/hr with 175mL flush q4h Kcal 2,160 Protein (gm) 90 Fluid (mL) 1,097 Add Supplement/Snack (indicate name/kcal d/c /protein ) Goal #1 TF to meet 75-100% of nutrient needs Anticipated Discharge Needs: Unable to determine at this time Follow-Up By: 09/21/18 Additional Comments f/u: new TF
[2018-09-21] MEDS: HEPARIN/ 0.45% NACL-25,000 UNIT/500 ML 25,000 UNIT/500 ML BAG IV SCH (14:49)
[2018-09-21 15:31] LABS: INR 1.65 (0.87-1.13)
[2018-09-21 15:32] LABS: Partial Thromboplastin Time 40.9 Sec. (24.2-36.6)
[2018-09-21] MEDS: SODIUM CHLORIDE FLUSH SYRINGE 10 ML IV SCH ×3 (16:13→22:05)
[2018-09-21] MEDS: TRANSDERM-SCOP TD SCH (17:14)
[2018-09-21] MEDS: SODIUM BICARBONATE 150 MEQ in D5W 1,000 ML IV SCH (18:42)
[2018-09-22] MEDS: PROVENTIL IH SCH ×4 (02:30→19:53)
--- NOTE | 2018-09-22 02:49 | XRay Report ---
FINAL REPORT PROCEDURE: XR CHEST 1V AP TECHNIQUE: Chest radiograph anteroposterior view. CPT 46572 HISTORY: follow up respiratory failure COMPARISON: No prior studies are available for comparison. FINDINGS: Heart: Normal. Mediastinum/Vessels: Normal. Lungs/Pleural space: Normal. Bony thorax: No acute osseous abnormality. Life support devices: The NG tube is in the stomach. There is an endotracheal tube in the proximal tr achea.. IMPRESSION: Heart size is normal. The lungs are clear and expanded. There are no infiltrates, effusions or pneumothoraces. The NG tube is in the stomach. There is an endotracheal tube in the proximal trachea..
[2018-09-22] MEDS: LOPRESSOR IV SCH ×4 (03:21→20:26)
[2018-09-22] MEDS: TYLENOL PO PRN (03:45)
[2018-09-22] MEDS: SODIUM BICARBONATE 150 MEQ in D5W 1,000 ML IV SCH (03:47)
[2018-09-22] MEDS: PFIZERPEN 12 MIL.UNITS in NACL 0.9% 250ML 250 ML IV SCH ×2 (05:51→17:32)
[2018-09-22] MEDS: SYNTHROID PO SCH (05:51)
[2018-09-22] MEDS: FLAGYL PO SCH ×2 (05:51→14:06)
[2018-09-22 07:37] LABS: Hematocrit 30.8 % (35.5-45.6); Hemoglobin 10.1 gm/dl (11.8-15.2); Mean Corpuscular HGB Conc 33 % (32-34); Mean Corpuscular Volume 86 fl (84-94); Platelet Count 126 K/mm3 (140-440); Red Blood Count 3.59 M/mm3 (3.65-5.03)
[2018-09-22 07:55] LABS: Calcium 6.9 mg/dL (8.4-10.2)
[2018-09-22] MEDS: PEPCID IV SCH (09:11)
[2018-09-22] MEDS: MEPRON PO SCH (09:11)
[2018-09-22] MEDS: DIFLUCAN 200 ML IV SCH (09:11)
[2018-09-22] MEDS: LEVAQUIN 750MG/150ML 750 MG/150 ML BAG IV SCH (09:12)
[2018-09-22] MEDS: CORDARONE 900 MG in D5W 482 ML IV SCH (09:12)
--- NOTE | 2018-09-22 09:39 | Progress Note ---
Addendum entered and electronically signed by CAITLIN ESCALONA MD 09/22/18 11:25: Sinus rhythm. Worsening renal function. Cr 2.0 today. Original Note: Assessment and Plan Pt converted to NSR. Cont amio gtt and heparin gtt. The patient has been seen in conjunction with Dr. Sorto who agrees with the assessment and plan of care. - Patient Problems (1) Sepsis Current Visit: Yes Status: Acute (2) HIV (human immunodeficiency virus infection) Current Visit: Yes Status: Chronic (3) AIDS Current Visit: Yes Status: Suspected (4) Neutropenia Current Visit: Yes Status: Acute (5) Pneumonia Current Visit: Yes Status: Acute (6) Diarrhea Current Visit: Yes Status: Acute (7) Bradycardia Current Visit: Yes Status: Acute (8) Hypothyroidism Current Visit: Yes Status: Suspected (9) Encephalopathy Current Visit: Yes Status: Acute (10) Atrial fibrillation and flutter Current Visit: Yes Status: Acute Subjective Date of service: 09/22/18 Principal diagnosis: elevated LFTs/abnormal CT Interval history: pt remains intubated. has converted to NSR, remains on amio gtt and heparin gtt. Objective Last Vital Signs Temp 99.1 F 09/22/18 09:00 Pulse 101 H 09/22/18 09:15 Resp 22 09/22/18 08:00 BP 101/53 09/22/18 09:15 Pulse Ox 99 09/22/18 08:10 - Physical Examination General: Other (intubated) HEENT: Positive: PERRL Neck: Positive: trachea midline Cardiac: Positive: Reg Rate and Rhythm, S1/S2 Lungs: Positive: Decreased Breath Sounds, Rhonchi, Ventilated Respirations Neuro: Positive: Grossly Intact Abdomen: Positive: Unremarkable Skin: Negative: Rash Extremities: Present: edema - Labs and Meds Cardiac Enzymes 09/21/18 Range/Units 10:07 AST 94 H (5-40) units/L Coagulation 09/21/18 Range/Units 15:00 PT 19.9 H (12.2-14.9) Sec. INR 1.65 H (0.87-1.13) APTT 40.9 H (24.2-36.6) Sec. CBC 09/21/18 09/22/18 Range/Units 11:00 07:00 WBC 1.8 L* (4.5-11.0) K/mm3 RBC 3.59 L (3.65-5.03) M/mm3 Hgb 11.7 L 10.1 L (11.8-15.2) gm/dl Hct 35.6 30.8 L (35.5-45.6) % Plt Count 149 126 L (140-440) K/mm3 Comprehensive Metabolic Panel 09/21/18 09/21/18 09/22/18 Range/Units 10:07 21:54 07:00 Sodium 139 138 (137-145) mmol/L Potassium 6.5 H* 5.2 H 4.5 (3.6-5.0) mmol/L Chloride 103.6 102.6 (98-107) mmol/L Carbon Dioxide 18 L 23 (22-30) mmol/L BUN 20 27 H (9-20) mg/dL Creatinine 2.1 H D 2.0 H (0.8-1.5) mg/dL Glucose 75 128 H (75-100) mg/dL Calcium 8.1 L 6.9 L (8.4-10.2) mg/dL AST 94 H (5-40) units/L ALT 28 (7-56) units/L Alkaline Phosphatase 57 (35-129) units/L Total Protein 6.8 (6.3-8.2) g/dL Albumin 2.8 L (3.9-5) g/dL - Imaging and Cardiology Echo: report reviewed ( normal LV, no significant valvular abnormalities. ) - Telemetry EKG Rhythm: Sinus Rhythm - EKG Sinus rhythms and dysrhythmias: sinus rhythm, sinus arrest or pause (Patient had very transient junctional rythm at rate of 35/mt,with sinus pause,lasted< one minute,reverted to judson S.R at >90/mt at 08:12 AM,09/18/2018.)
--- NOTE | 2018-09-22 09:45 | Progress Note ---
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) Elevated LFTs Neutropenia Thrombocytopenia - continue supplemental oxygen to keep sats > 90% - continue bronchodilators with pulmonary Continue empiric and targeted anti- infective's per ID recs antibiotics per ID - reduce set rate to 12/min - begin daily SBT's soon after as tolerated - continue IV Amiodarone with further rate control per cardiology - diarrhea improved - continue fluconazole for candidiasis - watch for drug-drug interactions - continue enteral nutrition as tolerated - begin fentanyl drip for agitation and to help secure ETT (target RASS 0 to -1 - PT/OT/ROM exercises as tolerated - mobility protocol for pressure ulcer prophylaxis - continue GI & VTE prophylaxis - continue other care per attending / other consultants ....... care plan discussed at length with next-of-kin ...... re-evaluate in am & prn The high probability of a clinically significant, sudden or life threatening deterioration of the [cardiac, respiratory and neurologic] system(s) required my full and direct attention, intervention and personal management. The aggregate critical care time was [34] minutes. This time is in addition to time spent performing reported procedures but includes the following: [x] Data Review and interpretation [x] Patient assessment and monitoring of vital signs [x] Documentation [x] Medication orders and management Subjective Date of service: 09/22/18 Principal diagnosis: Severe sepsis; Ac hypoxemic Resp failure; [place]. Pneumonia; Ac encephalopathy Interval history: Patient is seen today for: Severe sepsis (present on admission with fever, tachycardia, hypotension and elevated lactate); Acute hypoxemic Respiratory failure; Bilateral pneumonia; Acute encephalopathy (Toxic / Metabolic); Atrial Fibrillation with RVR Seen and examined at bedside; 24hour events reviewed; nursing and respiratory care staff consulted; no adverse overnight events reported to me; resting peacefully in bed; sister and friends visiting; follows simple 2 step commands but interspaced with episodes of confusion; no emesis or overt aspiration; no seizures reported Objective Vital Signs - 12hr 09/21/18 09/21/18 09/21/18 21:50 22:00 22:10 Temperature Pulse Rate 118 H 114 H 117 H Pulse Rate [ Anterior Bilateral Throughout] Pulse Rate [ 114 H From Monitor] Respiratory 25 H 25 H 25 H Rate Respiratory Rate [Anterior Bilateral Throughout] Blood Pressure 106/52 99/49 99/49 O2 Sat by Pulse 100 100 100 Oximetry 09/21/18 09/21/18 09/21/18 22:20 22:30 22:40 Temperature Pulse Rate 115 H 114 H 115 H Pulse Rate [ Anterior Bilateral Throughout] Pulse Rate [ From Monitor] Respiratory 28 H 26 H 29 H Rate Respiratory Rate [Anterior Bilateral Throughout] Blood Pressure 99/49 99/48 99/48 O2 Sat by Pulse 100 100 100 Oximetry 09/21/18 09/21/18 09/21/18 22:50 23:00 23:10 Temperature Pulse Rate 115 H 115 H 118 H Pulse Rate [ Anterior Bilateral Throughout] Pulse Rate [ From Monitor] Respiratory 26 H 24 23 Rate Respiratory Rate [Anterior Bilateral Throughout] Blood Pressure 99/48 91/54 91/54 O2 Sat by Pulse 100 100 100 Oximetry 09/21/18 09/21/18 09/21/18 23:20 23:30 23:39 Temperature Pulse Rate 115 H 117 H 115 H Pulse Rate [ Anterior Bilateral Throughout] Pulse Rate [ From Monitor] Respiratory 21 20 24 Rate Respiratory Rate [Anterior Bilateral Throughout] Blood Pressure 91/54 100/49 100/49 O2 Sat by Pulse 100 100 100 Oximetry 09/21/18 09/21/18 09/21/18 23:40 23:50 23:52 Temperature Pulse Rate 115 H 117 H 115 H Pulse Rate [ Anterior Bilateral Throughout] Pulse Rate [ From Monitor] Respiratory 21 25 H 21 Rate Respiratory Rate [Anterior Bilateral Throughout] Blood Pressure 100/49 100/49 100/49 O2 Sat by Pulse 100 100 100 Oximetry 09/22/18 09/22/18 09/22/18 00:00 00:10 00:21 Temperature 98.5 F Pulse Rate 106 H 115 H 117 H Pulse Rate [ Anterior Bilateral Throughout] Pulse Rate [ From Monitor] Respiratory 30 H 29 H 22 Rate Respiratory Rate [Anterior Bilateral Throughout] Blood Pressure 114/51 114/51 O2 Sat by Pulse 100 100 100 Oximetry 09/22/18 09/22/18 09/22/18 00:31 00:41 00:51 Temperature Pulse Rate 116 H 114 H 110 H Pulse Rate [ Anterior Bilateral Throughout] Pulse Rate [ From Monitor] Respiratory 20 26 H 28 H Rate Respiratory Rate [Anterior Bilateral Throughout] Blood Pressure 114/51 114/51 114/51 O2 Sat by Pulse 100 100 Oximetry 09/22/18 09/22/18 09/22/18 01:00 01:11 01:21 Temperature Pulse Rate 109 H 108 H 112 H Pulse Rate [ Anterior Bilateral Throughout] Pulse Rate [ From Monitor] Respiratory 22 18 21 Rate Respiratory Rate [Anterior Bilateral Throughout] Blood Pressure 100/48 100/48 100/48 O2 Sat by Pulse 99 100 99 Oximetry 09/22/18 09/22/18 09/22/18 01:30 01:41 01:51 Temperature Pulse Rate 107 H 98 H 98 H Pulse Rate [ Anterior Bilateral Throughout] Pulse Rate [ From Monitor] Respiratory 25 H 25 H 25 H Rate Respiratory Rate [Anterior Bilateral Throughout] Blood Pressure 88/40 101/49 101/49 O2 Sat by Pulse 99 98 96 Oximetry 09/22/18 09/22/18 09/22/18 02:00 02:11 02:21 Temperature Pulse Rate 101 H 98 H 99 H Pulse Rate [ Anterior Bilateral Throughout] Pulse Rate [ 105 H From Monitor] Respiratory 25 H 13 22 Rate Respiratory Rate [Anterior Bilateral Throughout] Blood Pressure 106/48 106/48 106/48 O2 Sat by Pulse 98 96 97 Oximetry 09/22/18 09/22/18 09/22/18 02:30 02:41 02:45 Temperature Pulse Rate 103 H 106 H Pulse Rate [ 103 H Anterior Bilateral Throughout] Pulse Rate [ From Monitor] Respiratory 26 H 21 Rate Respiratory 26 H Rate [Anterior Bilateral Throughout] Blood Pressure 85/52 85/52 O2 Sat by Pulse 97 100 Oximetry 09/22/18 09/22/18 09/22/18 02:48 02:51 03:00 Temperature Pulse Rate 104 H 104 H 104 H Pulse Rate [ Anterior Bilateral Throughout] Pulse Rate [ From Monitor] Respiratory 26 H 25 H Rate Respiratory Rate [Anterior Bilateral Throughout] Blood Pressure 94/45 94/45 85/42 O2 Sat by Pulse 99 99 99 Oximetry 09/22/18 09/22/18 09/22/18 03:10 03:21 03:31 Temperature Pulse Rate 104 H 101 H 103 H Pulse Rate [ Anterior Bilateral Throughout] Pulse Rate [ From Monitor] Respiratory 25 H 26 H 21 Rate Respiratory Rate [Anterior Bilateral Throughout] Blood Pressure 94/47 94/50 94/56 O2 Sat by Pulse 99 100 100 Oximetry 09/22/18 09/22/18 09/22/18 03:41 03:50 03:55 Temperature 100.1 F H Pulse Rate 103 H 102 H Pulse Rate [ Anterior Bilateral Throughout] Pulse Rate [ From Monitor] Respiratory 24 26 H Rate Respiratory Rate [Anterior Bilateral Throughout] Blood Pressure 94/56 101/49 O2 Sat by Pulse 100 100 Oximetry 09/22/18 09/22/18 09/22/18 04:00 04:11 04:21 Temperature Pulse Rate 102 H 102 H 102 H Pulse Rate [ Anterior Bilateral Throughout] Pulse Rate [ From Monitor] Respiratory 25 H 25 H 25 H Rate Respiratory Rate [Anterior Bilateral Throughout] Blood Pressure 106/53 99/51 113/50 O2 Sat by Pulse 100 100 100 Oximetry 09/22/18 09/22/18 09/22/18 04:30 04:41 04:50 Temperature Pulse Rate 102 H 102 H 102 H Pulse Rate [ Anterior Bilateral Throughout] Pulse Rate [ From Monitor] Respiratory 25 H 25 H 26 H Rate Respiratory Rate [Anterior Bilateral Throughout] Blood Pressure 104/50 104/50 109/51 O2 Sat by Pulse 100 100 100 Oximetry 09/22/18 09/22/18 09/22/18 05:00 05:11 05:21 Temperature Pulse Rate 99 H 102 H 102 H Pulse Rate [ Anterior Bilateral Throughout] Pulse Rate [ From Monitor] Respiratory 25 H 25 H 25 H Rate Respiratory Rate [Anterior Bilateral Throughout] Blood Pressure 110/50 109/51 103/51 O2 Sat by Pulse 100 100 100 Oximetry 09/22/18 09/22/18 09/22/18 05:30 05:41 05:51 Temperature Pulse Rate 102 H 100 H 100 H Pulse Rate [ Anterior Bilateral Throughout] Pulse Rate [ From Monitor] Respiratory 25 H 25 H 25 H Rate Respiratory Rate [Anterior Bilateral Throughout] Blood Pressure 104/47 104/47 99/50 O2 Sat by Pulse 100 100 100 Oximetry 09/22/18 09/22/18 09/22/18 06:00 06:11 06:21 Temperature Pulse Rate 99 H 99 H 102 H Pulse Rate [ Anterior Bilateral Throughout] Pulse Rate [ 105 H From Monitor] Respiratory 26 H 25 H 25 H Rate Respiratory Rate [Anterior Bilateral Throughout] Blood Pressure 99/46 99/46 90/54 O2 Sat by Pulse 100 100 100 Oximetry 09/22/18 09/22/18 09/22/18 06:30 06:41 06:51 Temperature Pulse Rate 100 H 100 H 98 H Pulse Rate [ Anterior Bilateral Throughout] Pulse Rate [ From Monitor] Respiratory 25 H 25 H 25 H Rate Respiratory Rate [Anterior Bilateral Throughout] Blood Pressure 89/47 106/49 108/52 O2 Sat by Pulse 100 100 100 Oximetry 09/22/18 09/22/18 09/22/18 07:00 07:11 07:21 Temperature Pulse Rate 98 H 101 H 102 H Pulse Rate [ Anterior Bilateral Throughout] Pulse Rate [ From Monitor] Respiratory 25 H 25 H 25 H Rate Respiratory Rate [Anterior Bilateral Throughout] Blood Pressure 106/50 106/50 117/48 O2 Sat by Pulse 100 100 100 Oximetry 09/22/18 09/22/18 09/22/18 07:30 07:41 07:51 Temperature Pulse Rate 103 H 103 H 102 H Pulse Rate [ Anterior Bilateral Throughout] Pulse Rate [ From Monitor] Respiratory 25 H 25 H 25 H Rate Respiratory Rate [Anterior Bilateral Throughout] Blood Pressure 105/52 105/52 113/50 O2 Sat by Pulse 100 100 99 Oximetry 09/22/18 09/22/18 09/22/18 08:00 08:10 09:00 Temperature 99.1 F Pulse Rate 102 H Pulse Rate [ 104 H Anterior Bilateral Throughout] Pulse Rate [ From Monitor] Respiratory Rate Respiratory 22 Rate [Anterior Bilateral Throughout] Blood Pressure 104/47 O2 Sat by Pulse 99 Oximetry 09/22/18 09:15 Temperature Pulse Rate 101 H Pulse Rate [ Anterior Bilateral Throughout] Pulse Rate [ From Monitor] Respiratory Rate Respiratory Rate [Anterior Bilateral Throughout] Blood Pressure 101/53 O2 Sat by Pulse Oximetry Constitutional: no acute distress, agitated, appears uncomfortable, other (youns AAM, normocephalic and atraumatic with mildly increased respiratory effort at rest) Eyes: non-icteric ENT: oropharynx moist, other (ETT 25 cm NIKA) Neck: supple, no lymphadenopathy, no JVD, other (no thyromegaly) Effort: mildly labored Ascultation: Bilateral: rales Percussion: Bilateral: not dull Cardiovascular: regular rate and rhythm Gastrointestinal: normoactive bowel sounds, soft, non-tender, non-distended Integumentary: rash (healed macular rash to extremities) Extremities: no cyanosis, no edema Neurologic: non-focal exam (grossly), pupils equal and round, other (unable to assess otherwise) Psychiatric: other (difficult to assess re: AMS / Delirium /encephalopathy) CBC and BMP: 09/22/18 07:00 09/22/18 07:00 ABG, PT/INR, D-dimer: ABG POC ABG pH 7.433 (7.35-7.45) 09/22/18 03:01 POC ABG pCO2 32.7 (35-45) L 09/22/18 03:01 POC ABG pO2 103 (80-105) 09/22/18 03:01 POC ABG HCO3 21.8 09/22/18 03:01 POC ABG Total CO2 23 09/22/18 03:01 POC ABG O2 Sat 98 09/22/18 03:01 PT/INR, D-dimer PT 19.9 Sec. (12.2-14.9) H 09/21/18 15:00 INR 1.65 (0.87-1.13) H 09/21/18 15:00 Abnormal lab findings: Abnormal Labs 09/11/18 09/11/18 09/11/18 18:00 18:00 18:00 WBC 1.9 L* RBC Hgb Hct Plt Count 130 L Monocytes % (Manual) 16.0 H Seg Neutrophils # Man 0.9 L Abs Lymphs (Manual) Lymphocytes # (Manual) 0.5 L PT INR APTT Heparin Anti-Xa Level POC ABG pH POC ABG pCO2 POC ABG pO2 Sodium 131 L Potassium Chloride Carbon Dioxide 17 L BUN 21 H Creatinine Glucose 126 H POC Glucose Lactic Acid 2.60 H* Calcium 8.1 L AST 123 H ALT 115 H Total Creatine Kinase Total Protein Albumin 3.0 L Vitamin B12 TSH Free T4 CSF VDRL Lymph Enumerat CD4/CD8 Absolute CD3 Count % CD4 Cells Absolute CD4 Count % CD8 Cells Absolute CD19 Count T.pallidum Ab (FTA-ABS) HIV-1 RNA PCR copies/ml HIV-1 RNA (PCR) log 09/11/18 09/13/18 09/13/18 19:01 04:28 07:31 WBC 2.0 L RBC Hgb Hct Plt Count 116 L Monocytes % (Manual) 8.0 H Seg Neutrophils # Man 1.0 L Abs Lymphs (Manual) Lymphocytes # (Manual) 0.5 L PT INR APTT Heparin Anti-Xa Level POC ABG pH POC ABG pCO2 POC ABG pO2 Sodium Potassium Chloride 110.4 H Carbon Dioxide 19 L BUN Creatinine Glucose POC Glucose Lactic Acid 3.70 H* Calcium 7.9 L AST ALT Total Creatine Kinase Total Protein Albumin Vitamin B12 TSH Free T4 CSF VDRL Lymph Enumerat CD4/CD8 Absolute CD3 Count % CD4 Cells Absolute CD4 Count % CD8 Cells Absolute CD19 Count T.pallidum Ab (FTA-ABS) HIV-1 RNA PCR copies/ml HIV-1 RNA (PCR) log 09/13/18 09/13/18 09/13/18 07:31 12:29 12:29 WBC RBC Hgb Hct Plt Count Monocytes % (Manual) Seg Neutrophils # Man Abs Lymphs (Manual) 309 L Lymphocytes # (Manual) PT INR APTT Heparin Anti-Xa Level POC ABG pH POC ABG pCO2 POC ABG pO2 Sodium Potassium Chloride Carbon Dioxide BUN Creatinine Glucose POC Glucose Lactic Acid Calcium AST 70 H ALT 68 H Total Creatine Kinase Total Protein Albumin 2.5 L Vitamin B12 TSH Free T4 CSF VDRL Lymph Enumerat CD4/CD8 0.01 L Absolute CD3 Count 220 L % CD4 Cells 1 L Absolute CD4 Count 4 L % CD8 Cells 70 H Absolute CD19 Count 54 L T.pallidum Ab (FTA-ABS) HIV-1 RNA PCR copies/ml 57261 H HIV-1 RNA (PCR) log 4.71 H 09/14/18 09/14/18 09/15/18 07:17 16:34 05:05 WBC 1.6 L* RBC Hgb 10.4 L Hct 31.1 L D Plt Count 113 L Monocytes % (Manual) Seg Neutrophils # Man Abs Lymphs (Manual) Lymphocytes # (Manual) PT INR APTT Heparin Anti-Xa Level POC ABG pH POC ABG pCO2 POC ABG pO2 Sodium Potassium 3.4 L Chloride Carbon Dioxide 18 L BUN Creatinine Glucose 104 H POC Glucose Lactic Acid Calcium 7.6 L AST 49 H ALT Total Creatine Kinase Total Protein Albumin 2.5 L Vitamin B12 TSH Free T4 CSF VDRL Lymph Enumerat CD4/CD8 Absolute CD3 Count % CD4 Cells Absolute CD4 Count % CD8 Cells Absolute CD19 Count T.pallidum Ab (FTA-ABS) Reactive H HIV-1 RNA PCR copies/ml HIV-1 RNA (PCR) log 09/15/18 09/15/18 09/16/18 05:05 Unknown 06:55 WBC 2.8 L RBC Hgb 10.9 L Hct 33.5 L Plt Count 135 L Monocytes % (Manual) Seg Neutrophils # Man Abs Lymphs (Manual) Lymphocytes # (Manual) PT INR APTT Heparin Anti-Xa Level POC ABG pH POC ABG pCO2 POC ABG pO2 Sodium Potassium Chloride 107.9 H Carbon Dioxide 18 L BUN 6 L Creatinine Glucose POC Glucose Lactic Acid Calcium 7.4 L AST ALT Total Creatine Kinase Total Protein Albumin Vitamin B12 TSH Free T4 CSF VDRL Reactive 1:8 H Lymph Enumerat CD4/CD8 Absolute CD3 Count % CD4 Cells Absolute CD4 Count % CD8 Cells Absolute CD19 Count T.pallidum Ab (FTA-ABS) HIV-1 RNA PCR copies/ml HIV-1 RNA (PCR) log 09/16/18 09/16/18 09/16/18 11:41 11:41 11:41 WBC RBC Hgb Hct Plt Count Monocytes % (Manual) Seg Neutrophils # Man Abs Lymphs (Manual) Lymphocytes # (Manual) PT INR APTT Heparin Anti-Xa Level POC ABG pH POC ABG pCO2 POC ABG pO2 Sodium Potassium Chloride Carbon Dioxide BUN Creatinine Glucose POC Glucose Lactic Acid Calcium AST ALT Total Creatine Kinase Total Protein Albumin Vitamin B12 934.5 H TSH 4.210 H Free T4 0.72 L CSF VDRL Lymph Enumerat CD4/CD8 Absolute CD3 Count % CD4 Cells Absolute CD4 Count % CD8 Cells Absolute CD19 Count T.pallidum Ab (FTA-ABS) HIV-1 RNA PCR copies/ml HIV-1 RNA (PCR) log 09/16/18 09/17/18 09/17/18 15:43 05:13 05:13 WBC 2.0 L RBC Hgb 10.9 L Hct 32.7 L Plt Count Monocytes % (Manual) Seg Neutrophils # Man Abs Lymphs (Manual) Lymphocytes # (Manual) PT INR APTT Heparin Anti-Xa Level POC ABG pH POC ABG pCO2 29.3 L POC ABG pO2 70 L Sodium Potassium Chloride 107.2 H Carbon Dioxide 21 L BUN 3 L Creatinine 0.7 L Glucose POC Glucose Lactic Acid Calcium 7.9 L AST ALT Total Creatine Kinase Total Protein 6.1 L Albumin 2.6 L Vitamin B12 TSH Free T4 CSF VDRL Lymph Enumerat CD4/CD8 Absolute CD3 Count % CD4 Cells Absolute CD4 Count % CD8 Cells Absolute CD19 Count T.pallidum Ab (FTA-ABS) HIV-1 RNA PCR copies/ml HIV-1 RNA (PCR) log 09/17/18 09/18/18 09/18/18 21:57 12:46 12:46 WBC RBC Hgb Hct Plt Count Monocytes % (Manual) Seg Neutrophils # Man Abs Lymphs (Manual) Lymphocytes # (Manual) PT INR APTT Heparin Anti-Xa Level POC ABG pH POC ABG pCO2 POC ABG pO2 Sodium Potassium Chloride Carbon Dioxide BUN Creatinine Glucose POC Glucose 108 H Lactic Acid Calcium AST ALT Total Creatine Kinase Total Protein Albumin Vitamin B12 TSH 5.190 H Free T4 0.75 L CSF VDRL Lymph Enumerat CD4/CD8 Absolute CD3 Count % CD4 Cells Absolute CD4 Count % CD8 Cells Absolute CD19 Count T.pallidum Ab (FTA-ABS) HIV-1 RNA PCR copies/ml HIV-1 RNA (PCR) log 09/19/18 09/19/18 09/20/18 04:57 04:57 05:33 WBC 2.1 L RBC Hgb 11.4 L Hct 34.2 L Plt Count Monocytes % (Manual) Seg Neutrophils # Man Abs Lymphs (Manual) Lymphocytes # (Manual) PT INR APTT Heparin Anti-Xa Level POC ABG pH POC ABG pCO2 POC ABG pO2 Sodium 136 L Potassium Chloride Carbon Dioxide 19 L 19 L BUN 6 L 7 L Creatinine Glucose POC Glucose Lactic Acid Calcium 7.9 L AST ALT Total Creatine Kinase Total Protein Albumin Vitamin B12 TSH Free T4 CSF VDRL Lymph Enumerat CD4/CD8 Absolute CD3 Count % CD4 Cells Absolute CD4 Count % CD8 Cells Absolute CD19 Count T.pallidum Ab (FTA-ABS) HIV-1 RNA PCR copies/ml HIV-1 RNA (PCR) log 09/20/18 09/21/18 09/21/18 06:52 01:06 03:49 WBC 2.5 L RBC Hgb Hct Plt Count Monocytes % (Manual) Seg Neutrophils # Man Abs Lymphs (Manual) Lymphocytes # (Manual) PT INR APTT Heparin Anti-Xa Level POC ABG pH 7.159 L POC ABG pCO2 32.9 L 70.0 H POC ABG pO2 62 L 254 H Sodium Potassium Chloride Carbon Dioxide BUN Creatinine Glucose POC Glucose Lactic Acid Calcium AST ALT Total Creatine Kinase Total Protein Albumin Vitamin B12 TSH Free T4 CSF VDRL Lymph Enumerat CD4/CD8 Absolute CD3 Count % CD4 Cells Absolute CD4 Count % CD8 Cells Absolute CD19 Count T.pallidum Ab (FTA-ABS) HIV-1 RNA PCR copies/ml HIV-1 RNA (PCR) log 09/21/18 09/21/18 09/21/18 04:15 04:15 04:25 WBC 3.1 L RBC Hgb 11.6 L Hct Plt Count Monocytes % (Manual) 12.0 H Seg Neutrophils # Man 1.6 L Abs Lymphs (Manual) Lymphocytes # (Manual) 0.5 L PT INR APTT Heparin Anti-Xa Level POC ABG pH POC ABG pCO2 POC ABG pO2 Sodium Potassium 6.1 H* D Chloride Carbon Dioxide 19 L BUN Creatinine Glucose 108 H POC Glucose Lactic Acid Calcium AST ALT Total Creatine Kinase 685 H Total Protein Albumin Vitamin B12 TSH Free T4 CSF VDRL Lymph Enumerat CD4/CD8 Absolute CD3 Count % CD4 Cells Absolute CD4 Count % CD8 Cells Absolute CD19 Count T.pallidum Ab (FTA-ABS) HIV-1 RNA PCR copies/ml HIV-1 RNA (PCR) log 09/21/18 09/21/18 09/21/18 09:59 10:07 11:00 WBC RBC Hgb 11.7 L Hct Plt Count Monocytes % (Manual) Seg Neutrophils # Man Abs Lymphs (Manual) Lymphocytes # (Manual) PT INR APTT Heparin Anti-Xa Level POC ABG pH 7.301 L POC ABG pCO2 POC ABG pO2 109 H Sodium Potassium 6.5 H* Chloride Carbon Dioxide 18 L BUN Creatinine 2.1 H D Glucose POC Glucose Lactic Acid Calcium 8.1 L AST 94 H ALT Total Creatine Kinase Total Protein Albumin 2.8 L Vitamin B12 TSH Free T4 CSF VDRL Lymph Enumerat CD4/CD8 Absolute CD3 Count % CD4 Cells Absolute CD4 Count % CD8 Cells Absolute CD19 Count T.pallidum Ab (FTA-ABS) HIV-1 RNA PCR copies/ml HIV-1 RNA (PCR) log 09/21/18 09/21/18 09/21/18 15:00 21:54 21:54 WBC RBC Hgb Hct Plt Count Monocytes % (Manual) Seg Neutrophils # Man Abs Lymphs (Manual) Lymphocytes # (Manual) PT 19.9 H INR 1.65 H APTT 40.9 H Heparin Anti-Xa Level 0.98 H POC ABG pH POC ABG pCO2 POC ABG pO2 Sodium Potassium 5.2 H Chloride Carbon Dioxide BUN Creatinine Glucose POC Glucose Lactic Acid Calcium AST ALT Total Creatine Kinase Total Protein Albumin Vitamin B12 TSH Free T4 CSF VDRL Lymph Enumerat CD4/CD8 Absolute CD3 Count % CD4 Cells Absolute CD4 Count % CD8 Cells Absolute CD19 Count T.pallidum Ab (FTA-ABS) HIV-1 RNA PCR copies/ml HIV-1 RNA (PCR) log 09/21/18 09/22/18 09/22/18 22:57 03:01 05:27 WBC RBC Hgb Hct Plt Count Monocytes % (Manual) Seg Neutrophils # Man Abs Lymphs (Manual) Lymphocytes # (Manual) PT INR APTT Heparin Anti-Xa Level POC ABG pH POC ABG pCO2 32.7 L POC ABG pO2 Sodium Potassium Chloride Carbon Dioxide BUN Creatinine Glucose POC Glucose 124 H 128 H Lactic Acid Calcium AST ALT Total Creatine Kinase Total Protein Albumin Vitamin B12 TSH Free T4 CSF VDRL Lymph Enumerat CD4/CD8 Absolute CD3 Count % CD4 Cells Absolute CD4 Count % CD8 Cells Absolute CD19 Count T.pallidum Ab (FTA-ABS) HIV-1 RNA PCR copies/ml HIV-1 RNA (PCR) log 09/22/18 09/22/18 07:00 07:00 WBC 1.8 L* RBC 3.59 L Hgb 10.1 L Hct 30.8 L Plt Count 126 L Monocytes % (Manual) Seg Neutrophils # Man Abs Lymphs (Manual) Lymphocytes # (Manual) PT INR APTT Heparin Anti-Xa Level POC ABG pH POC ABG pCO2 POC ABG pO2 Sodium Potassium Chloride Carbon Dioxide BUN 27 H Creatinine 2.0 H Glucose 128 H POC Glucose Lactic Acid Calcium 6.9 L AST ALT Total Creatine Kinase Total Protein Albumin Vitamin B12 TSH Free T4 CSF VDRL Lymph Enumerat CD4/CD8 Absolute CD3 Count % CD4 Cells Absolute CD4 Count % CD8 Cells Absolute CD19 Count T.pallidum Ab (FTA-ABS) HIV-1 RNA PCR copies/ml HIV-1 RNA (PCR) log Chest x-ray: image reviewed (ETT riding high; will advance and repeat CXR) Allied health notes reviewed: nursing
--- NOTE | 2018-09-22 11:16 | XRay Report ---
AP CHEST: HISTORY: Endotracheal tube position A right arm PICC and Dobbhoff tube are in good position. No endotracheal tube is identified. The endotracheal tube may be superior to the thoracic inlet. AP view of the chest demonstrates a normal mediastinal and cardiac contour with clear lungs and normal bony and soft tissue structures. IMPRESSION: No endotracheal tube is confidently identified on AP chest. Please correlate with the patient. The tube if present may terminate in the cervical region. Unremarkable AP chest.
--- NOTE | 2018-09-22 11:20 | Progress Note ---
Assessment and Plan Assessment and plan: Severe Sepsis. Etiology secondary to bacterial pneumonia +/- gastroenteritis with newly diagnosed with HIV. Continue IV antibiotics per ID. Acute hypoxemic respiratory failure. Etiology secondary to sepsis/multifocal pneumonia with probable concomitant aspiration. Bilateral pneumonia. Etiology likely secondary to PJP Pneumonia +/- aspiration. Chest x-ray, CT scan reveals multifocal pneumonia. Follow-up tracheal aspirate. Toxic metabolic encephalopathy. 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 Continue antibiotics per ID. Gastroenteritis. Follow-up stool studies and CT scan of the abdomen and pelvis--check for colitis with patient is hemodynamically stable. Continue antibiotics per ID A. fib with RVR. Converted to NSR. IV amiodarone and heparin drip. 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 Repeat LP yesterday showed no pleocytosis, protein still high, low glucose (WBC 4, RBC 587, Lymph 71%, protein 123, glucose 32 on 09/19/2018). Should have good prognosis, but his mentation is not better after D4 of penicillin G. It may represent also effects from HIV virus. Per ID Diarrhea. Resolved, etiology likely secondary to Giardia. Giardia antigen positive in stool. CT scan as above Oral candidiasis. Continue fluconazole. HIV/AIDS. New Diagnosis. Neutropenia/thrombocytopenia. Likely from HIV myelosuppression, sepsis Prognosis is guarded. The high probability of a clinically significant, sudden or life threatening deterioration of the [cardiac, respiratory and neuro] system(s) required my full and direct attention, intervention and personal management. The aggregate critical care time was [32] minutes. This time is in addition to time spent performing reported procedures but includes the following: [x] Data Review and interpretation [x] Patient assessment and monitoring of vital signs [x] Documentation [x] Medication orders and management History Interval history: Patient is 33 yo initially presented with diarrhea, found to have pneumonia, sepsis, HIV/AIDS(new diagnosis) with CD4 count of 4. He was started on abx for PJP. His mental status has worsened with confusion, lethargy. LP done . He was diagnosed with neurosyphilis. Started on Penicillin. Closest family is sister in [place], and dr. Baltazar spoke to her several times about diagnosis but did not tell her about HIV/AIDS because of patient confidentiality. The patient decompensated on 09/20/18 with acute hypoxemic respiratory failure and worsening toxic metabolic encephalopathy requiring transfer to ICU and intubation. He now remains on mechanical ventilation. The patient was also noted to develop SVT requiring amiodarone drip as well as heparin drip. Patient has now converted back to normal sinus rhythm but remains critically ill. Hospitalist Physical - Constitutional Vitals: Temp Pulse Resp BP Pulse Ox 99.1 F 101 H 22 101/53 99 09/22/18 09:00 09/22/18 09:15 09/22/18 08:00 09/22/18 09:15 09/22/18 08:10 General appearance: Present: severe distress Results - Labs CBC & Chem 7: 09/22/18 07:00 09/22/18 07:00 Labs: Laboratory Last Values WBC 1.8 K/mm3 (4.5-11.0) L* 09/22/18 07:00 RBC 3.59 M/mm3 (3.65-5.03) L 09/22/18 07:00 Hgb 10.1 gm/dl (11.8-15.2) L 09/22/18 07:00 Hct 30.8 % (35.5-45.6) L 09/22/18 07:00 MCV 86 fl (84-94) 09/22/18 07:00 MCH 28 pg (28-32) 09/22/18 07:00 MCHC 33 % (32-34) 09/22/18 07:00 RDW 14.0 % (13.2-15.2) 09/22/18 07:00 Plt Count 126 K/mm3 (140-440) L 09/22/18 07:00 [place] % (Auto) [employer] 09/21/18 04:15 Add Manual Diff Complete 09/21/18 04:15 Total Counted 100 09/21/18 04:15 Seg Neuts % (Manual) 52.0 % (40.0-70.0) 09/21/18 04:15 Band Neutrophils % 18.0 % 09/21/18 04:15 Lymphocytes % (Manual) 16.0 % (13.4-35.0) 09/21/18 04:15 Reactive Lymphs % (Man) 0 % 09/21/18 04:15 Monocytes % (Manual) 12.0 % (0.0-7.3) H 09/21/18 04:15 Eosinophils % (Manual) 0 % (0.0-4.3) 09/21/18 04:15 Basophils % (Manual) 0 % (0.0-1.8) 09/21/18 04:15 Metamyelocytes % 0 % 09/21/18 04:15 Myelocytes % 1.0 % 09/21/18 04:15 Promyelocytes % 1.0 % 09/21/18 04:15 Blast Cells % 0 % 09/21/18 04:15 Nucleated RBC % Not Reportable 09/21/18 04:15 Seg Neutrophils # Man 1.6 K/mm3 (1.8-7.7) L 09/21/18 04:15 Band Neutrophils # 0.6 K/mm3 09/21/18 04:15 Abs Lymphs (Manual) 309 cells/uL (850-3900) L 09/13/18 12:29 Lymphocytes # (Manual) 0.5 K/mm3 (1.2-5.4) L 09/21/18 04:15 Abs React Lymphs (Man) 0.0 K/mm3 09/21/18 04:15 Monocytes # (Manual) 0.4 K/mm3 (0.0-0.8) 09/21/18 04:15 Eosinophils # (Manual) 0.0 K/mm3 (0.0-0.4) 09/21/18 04:15 Basophils # (Manual) 0.0 K/mm3 (0.0-0.1) 09/21/18 04:15 Metamyelocytes # 0.0 K/mm3 09/21/18 04:15 Myelocytes # 0.0 K/mm3 09/21/18 04:15 Promyelocytes # 0.0 K/mm3 09/21/18 04:15 Blast Cells # 0.0 K/mm3 09/21/18 04:15 WBC Morphology Not Reportable 09/21/18 04:15 Hypersegmented Neuts Not Reportable 09/21/18 04:15 Hyposegmented Neuts Not Reportable 09/21/18 04:15 Hypogranular Neuts Not Reportable 09/21/18 04:15 Smudge Cells Not Reportable 09/21/18 04:15 Toxic Granulation Not Reportable 09/21/18 04:15 Toxic Vacuolation Not Reportable 09/21/18 04:15 Dohle Bodies Not Reportable 09/21/18 04:15 Pelger-Huet Anomaly Not Reportable 09/21/18 04:15 Giovanna Rods Not Reportable 09/21/18 04:15 Platelet Estimate Appears normal 09/21/18 04:15 Clumped Platelets Not Reportable 09/21/18 04:15 Plt Clumps, EDTA Not Reportable 09/21/18 04:15 Large Platelets Not Reportable 09/21/18 04:15 Giant Platelets Not Reportable 09/21/18 04:15 Platelet Satelliting Not Reportable 09/21/18 04:15 Plt Morphology Comment Not Reportable 09/21/18 04:15 RBC Morphology Not Reportable 09/21/18 04:15 Dimorphic RBCs Not Reportable 09/21/18 04:15 Polychromasia Not Reportable 09/21/18 04:15 Hypochromasia 1+ 09/21/18 04:15 Poikilocytosis Not Reportable 09/21/18 04:15 Anisocytosis 1+ 09/21/18 04:15 Microcytosis Few 09/21/18 04:15 Macrocytosis Not Reportable 09/21/18 04:15 Spherocytes Not Reportable 09/21/18 04:15 Pappenheimer Bodies Not Reportable 09/21/18 04:15 Sickle Cells Not Reportable 09/21/18 04:15 Target Cells Rare 09/21/18 04:15 Tear Drop Cells Not Reportable 09/21/18 04:15 Ovalocytes 1+ 09/21/18 04:15 Stomatocytes Few 09/21/18 04:15 Helmet Cells Not Reportable 09/21/18 04:15 [place] Bodies Not Reportable 09/21/18 04:15 [place] Rings Not Reportable 09/21/18 04:15 [place] Cells Not Reportable 09/21/18 04:15 Bite Cells Not Reportable 09/21/18 04:15 Crenated Cell Not Reportable 09/21/18 04:15 Elliptocytes Few 09/21/18 04:15 Acanthocytes (Spur) Not Reportable 09/21/18 04:15 Rouleaux Not Reportable 09/21/18 04:15 Hemoglobin C Crystals Not Reportable 09/21/18 04:15 Schistocytes Not Reportable 09/21/18 04:15 Malaria parasites Not Reportable 09/21/18 04:15 Kieran Bodies Not Reportable 09/21/18 04:15 Hem Pathologist Commnt No 09/21/18 04:15 PT 19.9 Sec. (12.2-14.9) H 09/21/18 15:00 INR 1.65 (0.87-1.13) H 09/21/18 15:00 APTT 40.9 Sec. (24.2-36.6) H 09/21/18 15:00 Heparin Anti-Xa Level 0.63 U.I./ml (0.3-0.7) 09/22/18 07:00 POC ABG pH 7.433 (7.35-7.45) 09/22/18 03:01 POC ABG pCO2 32.7 (35-45) L 09/22/18 03:01 POC ABG pO2 103 (80-105) 09/22/18 03:01 POC ABG HCO3 21.8 09/22/18 03:01 POC ABG Total CO2 23 09/22/18 03:01 POC ABG O2 Sat 98 09/22/18 03:01 POC ABG Base Excess -2 09/22/18 03:01 FiO2 40 % 09/22/18 03:01 Sodium 138 mmol/L (137-145) 09/22/18 07:00 Potassium 4.5 mmol/L (3.6-5.0) 09/22/18 07:00 Chloride 102.6 mmol/L (98-107) 09/22/18 07:00 Carbon Dioxide 23 mmol/L (22-30) 09/22/18 07:00 Anion Gap 17 mmol/L 09/22/18 07:00 BUN 27 mg/dL (9-20) H 09/22/18 07:00 Creatinine 2.0 mg/dL (0.8-1.5) H 09/22/18 07:00 Estimated GFR 47 ml/min 09/22/18 07:00 BUN/Creatinine Ratio 14 % 09/22/18 07:00 Glucose 128 mg/dL (75-100) H 09/22/18 07:00 POC Glucose 128 (70-105) H 09/22/18 05:27 Lactic Acid 0.90 mmol/L (0.7-2.0) 09/11/18 20:17 Calcium 6.9 mg/dL (8.4-10.2) L 09/22/18 07:00 Magnesium 2.10 mg/dL (1.7-2.3) 09/21/18 10:07 Total Bilirubin 0.30 mg/dL (0.1-1.2) 09/21/18 10:07 Direct Bilirubin < 0.2 mg/dL (0-0.2) 09/13/18 07:31 AST 94 units/L (5-40) H 09/21/18 10:07 ALT 28 units/L (7-56) 09/21/18 10:07 Alkaline Phosphatase 57 units/L (35-129) 09/21/18 10:07 Ammonia 47.0 umol/L (25-60) 09/16/18 11:41 Total Creatine Kinase 685 units/L (55-170) H 09/21/18 04:25 CK-MB (CK-2) 3.5 ng/mL (0.0-4.0) 09/21/18 04:25 CK-MB (CK-2) Rel Index 0.5 (0-4) 09/21/18 04:25 NT-Pro-B Natriuret Pep 145.9 pg/mL (0-450) 09/18/18 16:07 Total Protein 6.8 g/dL (6.3-8.2) 09/21/18 10:07 Albumin 2.8 g/dL (3.9-5) L 09/21/18 10:07 Albumin/Globulin Ratio 0.7 % 09/21/18 10:07 Vitamin B12 934.5 pg/mL (211-911) H 09/16/18 11:41 TSH 5.190 mlU/mL (0.270-4.200) H 09/18/18 12:46 Free T4 0.75 ng/dL (0.76-1.46) L 09/18/18 12:46 Urine Color [place] (Yellow) 09/11/18 Unknown Urine Turbidity Clear (Clear) 09/11/18 Unknown Urine pH 5.0 (5.0-7.0) 09/11/18 Unknown Ur Specific [place] 1.016 (1.003-1.030) 09/11/18 Unknown Urine Protein <15 mg/dl mg/dL (Negative) 09/11/18 Unknown Urine Glucose (UA) Neg mg/dL (Negative) 09/11/18 Unknown Urine Ketones Neg mg/dL (Negative) 09/11/18 Unknown Urine Blood Sm (Negative) 09/11/18 Unknown Urine Nitrite Neg (Negative) 09/11/18 Unknown Urine Bilirubin Neg (Negative) 09/11/18 Unknown Urine Urobilinogen < 2.0 mg/dL (<2.0) 09/11/18 Unknown Ur Leukocyte Esterase Neg (Negative) 09/11/18 Unknown Urine WBC (Auto) 1.0 /HPF (0.0-6.0) 09/11/18 Unknown Urine RBC (Auto) 3.0 /HPF (0.0-6.0) 09/11/18 Unknown Urine Mucus Few /HPF 09/11/18 Unknown CSF Appearance Clear 09/19/18 15:00 CSF Color Colorless 09/19/18 15:00 CSF WBC 4 /mm3 (1-10) 09/19/18 15:00 CSF RBC 583 /mm3 (0-0) 09/19/18 15:00 CSF Seg Neutrophils 21.4 % (0-6) 09/19/18 15:00 CSF Lymphocytes % 71.4 % (40-80) 09/19/18 15:00 CSF Reactive Lymphs 0 % 09/19/18 15:00 CSF Monocytes % 7.1 % (15-45) 09/19/18 15:00 CSF Eosinophils % 0 % 09/19/18 15:00 CSF Basophils 0 % 09/19/18 15:00 CSF Pathologist Review C 09/19/18 15:00 CSF Glucose 32 mg/dL 09/19/18 15:00 CSF Total Protein 123 mg/dL 09/19/18 15:00 CSF VDRL Reactive 1:8 (Nonreactive) H 09/15/18 Unknown Urine Opiates Screen Presumptive negative 09/17/18 15:52 Urine Methadone Screen Presumptive negative 09/17/18 15:52 Ur Barbiturates Screen Presumptive negative 09/17/18 15:52 Ur Phencyclidine Scrn Presumptive negative 09/17/18 15:52 Ur Amphetamines Screen Presumptive negative 09/17/18 15:52 U Benzodiazepines Scrn Presumptive negative 09/17/18 15:52 Urine Cocaine Screen Presumptive negative 09/17/18 15:52 U Marijuana (THC) Screen Presumptive negative 09/17/18 15:52 Drugs of Abuse Note Disclamer 09/17/18 15:52 Lymph Enumerat CD4/CD8 0.01 (0.86-5.00) L 09/13/18 12:29 % CD3 Cells 71 % (57-85) 09/13/18 12:29 Absolute CD3 Count 220 cells/uL (840-3060) L 09/13/18 12:29 % CD4 Cells 1 % (30-61) L 09/13/18 12:29 Absolute CD4 Count 4 cells/uL (490-1740) L 09/13/18 12:29 % CD8 Cells 70 % (12-42) H 09/13/18 12:29 Absolute CD8 Count 216 cells/uL (180-1170) 09/13/18 12:29 % CD19 Cells 17 % (6-29) 09/13/18 12:29 Absolute CD19 Count 54 cells/uL (110-660) L 09/13/18 12:29 RPR Titer 1:16 09/13/18 12:29 RPR Reactive (Nonreactive) 09/13/18 12:29 T.pallidum Ab (FTA-ABS) Reactive (Nonreactive) H 09/14/18 16:34 C. difficile Toxin A&B Negative (Negative) 09/12/18 05:30 CMV DNA PCR log newspaper copy editor/mL See scanned result 09/16/18 12:03 Hepatitis A IgM Ab Non-reactive (NonReactive) 09/13/18 12:29 Hep Bs Antigen Non-reactive (Negative) 09/13/18 12:29 Hep B Core IgM Ab Non-reactive (NonReactive) 09/13/18 12:29 Hepatitis C Antibody Non-reactive (NonReactive) 09/13/18 12:29 HIV-1 Antibody See scanned result 09/11/18 19:14 HIV-1 RNA PCR copies/ml 61878 Copies/mL H 09/13/18 12:29 HIV-1 RNA (PCR) log 4.71 Log cps/mL H 09/13/18 12:29 HIV-2 Ab (Immunoblot) See scanned result 09/11/18 19:14 HIV 1&2 Antibody Rapid Reactive (Non React) 09/11/18 19:14 HIV P24 Antigen Non react (Non React) 09/11/18 19:14 Influenza A (Rapid) Negative (Negative) 09/13/18 16:05 Influenza A (RT-PCR) Negative (Negative) 09/13/18 16:05 Influenza B (Rapid) Negative (Negative) 09/13/18 16:05 Influenza B (RT-PCR) Negative (Negative) 09/13/18 16:05 Toxoplasma IgG Ab <7.20 IU/mL (<7.20) 09/16/18 12:09 Miscellaneous Test Flexitest 1 09/19/18 15:00 Nutrition/Malnutrition Assess - Dietary Evaluation Nutrition/Malnutrition Findings: Nutrition Notes Start: 09/12/18 17:45 Freq: Status: Active Protocol: Document 09/21/18 13:39 TW (Rec: 09/21/18 14:03 TW [id number]) Co-Sign 09/21/18 13:39 OL Nutrition Notes Initial or Follow up Reassessment Current Diagnosis Sepsis Other Pertinent Diagnosis Newly dx HIV, Bilat pneu Current Diet Osmolite 1.5 at 50mL/hr Labs/Tests K 6.5 Pertinent Medications Reviewed Height 6 ft Weight 103.2 kg [place] Body Weight (kg) 80.90 BMI 30.8 Subjective/Other Information F/U for TF start. Per RN, TF was held d/t pt coding and being intubated last night. Discussed with MD during rounds that pt will recieve trophic feedings of 10 mL until pt is stable. Burn Absent Trauma Absent #1 Nutrition Diagnosis Malnutrition Diagnosis Progress(for reassessment Continues documentation) Is patient on ventilator? Yes Is Patient Ambulatory and/or Out of Bed Yes REE-(Nimitz-St. or-ambulatory/OOB) [ 2619.500 [id number]] Kcal/Kg value to use for calculation 14 Approximate Energy Requirements Using 1445 kcal/Kg Calculation Used for Recommendations Kcal/kg Additional Notes Pro needs 162g/day (2g/kg IBW) Fluid needs 1ml/kcal Nutrition Intervention Change Diet Order: Continue TF Nutrition Support: Osmolite 1.5 at 60mL/hr with 175mL flush q4h Kcal 2,160 Protein (gm) 90 Fluid (mL) 1,097 Goal #1 TF to meet 75-100% of nutrient needs Anticipated Discharge Needs: Unable to determine at this time Follow-Up By: 09/23/18 Additional Comments f/u: necessity for TF formula SU langley
[2018-09-22] MEDS: HEPARIN/ 0.45% NACL-25,000 UNIT/500 ML 25,000 UNIT/500 ML BAG IV SCH (11:35)
--- NOTE | 2018-09-22 12:58 | Consultation ---
History of Present Illness - Reason for Consult Consult date: 09/22/18 acute renal failure, hyperkalemia, metabolic acidosis Requesting physician: CLOVIS BRANCH - History of Present Illness This is a 33 yo AAM with no significant PMHx who initially brought in by his family with nausea, multiple episodes of vomiting, and multiple episodes of loose stools over 1 week prior to admission, also reporting > 100lbs weight loss over the past 6 months. Pt was found to in Sepsis with a blood pressure of as low as 84/54, Acidosis, and intractible nausea and vomiting and was admitted to Medical floor and initiated on sepsis protocol. Pt was found to have pos HIV 1/2 ab, as per pt he has been in relationship with a HIV positive partner who was taking ART. Pt was also found to have b/l PNA, presumed PJP pneumonia and als oral candidiasis along with evidence of neurosyphillis. pt was initiated on ABXs incl. Penicillin G IV, levaquin, flagyl, azithromycin and bactrim as per ID. Course was complicated by worsening encephalopathy and respiratory failure requiring intubation. Pt also developed acute kidney injury with BUN/Cr rising to 27/2mg/dl along with hyperkalemia with K > 6 upon which bactrim was discontinued and mepron was started. Renal consult is requested for management of MAL. Past History Past Medical History: No medical history, HIV/AIDS, other (reviewed) Past Surgical History: No surgical history, Other (reviewed) Social history: single, lives with family, smoking, other (alcohol ). denies: prescription drug abuse Family history: no significant family history (reviewed) Medications and Allergies Allergies Allergy/AdvReac Type Severity Reaction Status Date / Time No Known Allergies Allergy Unverified 09/11/18 17:50 Active Meds: Active Medications Acetaminophen (Tylenol) 650 mg PO Q4H PRN PRN Reason: Pain MILD(1-3)/Fever >100.5/RIVERA Last Admin: 09/22/18 03:45 Dose: 650 mg Documented by: Acetaminophen (Tylenol) 650 mg MT Q4H PRN PRN Reason: Fever >101 Albuterol (Proventil) 2.5 mg IH Q4HRT PRN PRN Reason: Shortness Of Breath Last Admin: 09/16/18 06:09 Dose: 2.5 mg Documented by: Albuterol (Proventil) 2.5 mg IH Q6HRT [facility] Last Admin: 09/22/18 08:05 Dose: 2.5 mg Documented by: Lipase/Protease/Amylase (Abril Dr 10,500 Unit) 1 each FEEDTUBE PRN PRN PRN Reason: For Clogged Feeding Tube Atovaquone (Mepron) 750 mg PO BID [facility] Last Admin: 09/22/18 09:11 Dose: 750 mg Documented by: Azithromycin (Zithromax) 1,200 mg PO [place] [facility] Famotidine (Pepcid) 20 mg IV BID [facility] Last Admin: 09/22/18 09:11 Dose: 20 mg Documented by: Fentanyl (Sublimaze) 50 mcg IV Q10MIN PRN PRN Reason: ANALGESIA Last Admin: 09/21/18 02:05 Dose: 50 mcg Documented by: Hydrophilic Ointment (Vaseline Lip Therapy) 1 applic TP Q2HR PRN PRN Reason: Dry Lips Last Admin: 09/22/18 03:46 Dose: 1 applic Documented by: Fluconazole (Diflucan) 200 mls @ 100 mls/hr IV Q24HR GIA; Protocol Last Admin: 09/22/18 09:11 Dose: 100 mls/hr Documented by: Levofloxacin/Dextrose (Levaquin 750mg/150ml) 750 mg in 150 mls @ 100 mls/hr IV Q24HR GIA; Protocol Last Admin: 09/22/18 09:12 Dose: 100 mls/hr Documented by: Penicillin G Potassium 12 mil. (units/ Sodium Chloride) 250 mls @ 20.833 mls/hr IV Q12H [facility] Last Admin: 09/22/18 05:51 Dose: 20.83 mls/hr Documented by: Fentanyl Citrate (Fentanyl Drip Premix) 2,000 mcg in 100 mls @ 5.16 mls/hr IV TITR GIA; Protocol Midazolam HCl 100 mg/ Sodium (Chloride) 100 mls @ 2 mls/hr IV TITR GIA; Protocol Last Titration: 09/21/18 15:39 Dose: 0 mg/hr, 0 mls/hr Documented by: Diltiazem HCl (Cardizem/D5w 100mg/100ml) 100 mg in 100 mls @ 5 mls/hr IV TITR [facility]; Protocol Last Titration: 09/21/18 11:30 Dose: 0 mg/hr, 0 mls/hr Documented by: Amiodarone HCl 900 mg/ (Dextrose) 500 mls @ 33.33 mls/hr IV DIRECT [facility]; Protocol Last Admin: 09/22/18 09:12 Dose: 0.5 mg/min, 16.67 mls/hr Documented by: Heparin Sodium/Sodium Chloride (Heparin/ 0.45% Nacl-25,000 Unit/500 Ml) 25,000 unit in 500 mls @ 30 mls/hr IV TITR GIA; Protocol Last Admin: 09/22/18 11:35 Dose: 1,300 units/hr, 26 mls/hr Documented by: Levothyroxine Sodium (Synthroid) 25 mcg PO DAILY@0600 [facility] Last Admin: 09/22/18 05:51 Dose: 25 mcg Documented by: Metoprolol Tartrate (Lopressor) 5 mg IV Q6H [facility] Last Admin: 09/22/18 09:15 Dose: 5 mg Documented by: Metronidazole (Flagyl) 500 mg PO Q8HR [facility]; Protocol Last Admin: 09/22/18 05:51 Dose: 500 mg Documented by: Midazolam HCl (Versed) 2 mg IV Q10MIN PRN PRN Reason: Sedation Multi-Ingred Cream/Lotion/Oil/Oint (Artificial Tears Ophth Oint) 1 applic OU Q 4HR PRN PRN Reason: Dry Eye(s) Ondansetron HCl (Zofran) 4 mg IV Q8H PRN PRN Reason: Nausea And Vomiting Scopolamine (Transderm-Scop) 1 each TD Q3D [facility] Last Admin: 09/21/18 17:14 Dose: 1 each Documented by: Simple Syrup (Simple Syrup) 15 ml FEEDTUBE PRN PRN PRN Reason: Hypoglycemia Simple Syrup (Simple Syrup) 30 ml FEEDTUBE PRN PRN PRN Reason: Hypoglycemia Sodium Bicarbonate (Sodium Bicarbonate) 325 mg FEEDTUBE PRN PRN PRN Reason: For Clogged Feeding Tube Sodium Chloride (Sodium Chloride Flush Syringe 10 Ml) 10 ml IV BID [facility] Last Admin: 09/21/18 22:05 Dose: 10 ml Documented by: Sodium Chloride (Sodium Chloride Flush Syringe 10 Ml) 10 ml IV PRN PRN PRN Reason: LINE FLUSH Review of Systems ROS unobtainable: due to endotracheal tube, due to mental status Exam - Vital Signs Vital signs: Vital Signs Temp Pulse BP Pulse Ox 98.5 F 136 H 89/54 99 09/11/18 17:47 09/11/18 17:47 09/11/18 17:47 09/11/18 17:47 - General Appearance General appearance: chronically ill, sedated on ventilator, intubated EENT: ATNC, mucous membranes moist Neck: Present: neck supple Respiratory: Rales, Decreased Breath Sounds Heart: regular, S1S2 Gastrointestinal: Present: normoactive bowel sounds Integumentary: no rash, other (no edema ) Neurologic: other (intubated, sedated ) Results - Lab Results 09/22/18 07:00 09/22/18 07:00 Most recent lab results Calcium 6.9 mg/dL (8.4-10.2) L 09/22/18 07:00 Magnesium 2.10 mg/dL (1.7-2.3) 09/21/18 10:07 Assessment and Plan - Patient Problems (1) Acute kidney failure with tubular necrosis Current Visit: Yes Status: Acute Plan to address problem: suspect acute tubular necrosis in the setting of sepsis and hypotensive episodes. recent treatment with bactrim could have contributed to rising K/Cr. pt remains non-oliguric with IV NS boluses and s/p bicarb gtt. no acute indication for renal replacement therapy at present. avoid further nephrotoxins, IV Contrast, NSAIDs, dose meds for eGFR < 60mls/min. bactrim was switched to Mepron as per ID. Will monitor I/Os, lytes and renal parameters closely and make further recommendations. (2) Hyperkalemia Current Visit: Yes Status: Acute Plan to address problem: resolved after medical treatment and on bicarb gtt. given improved K/met acidosis bicarb gtt d/kathy. cont 2g K renal diet. bactrim was already changed to mepron (3) Sepsis Current Visit: Yes Status: Acute Plan to address problem: cont ABXs treatment as per ID. IV fluid prn to maintain MAP < 65mmHg (4) AIDS Current Visit: Yes Status: Suspected Plan to address problem: management as per ID (5) Acidosis Current Visit: No Status: Acute (6) Acute respiratory failure with hypoxia Current Visit: Yes Status: Acute Plan to address problem: vent management as per pulm/CCM (7) Pneumonia Current Visit: Yes Status: Acute Plan to address problem: on ABXs treamtent with levaquin, flagyl, azithromycin, mepron as per ID.
[2018-09-22] MEDS: SUBLIMAZE IV PRN (13:45)
--- NOTE | 2018-09-22 15:59 | Progress Note ---
Assessment and Plan Cultures: 09/11/2018 blood culture no growth 09/13/2018 serum cryptococcus ag neg 09/14/2018 CSF cryptococcus ag neg 09/14/2018 stool Nona 09/15/2018 stool +Giardia ag 09/19/2018 CSF cryptococcus ag neg A/P: 33 y/o male with no PMH; admitted on 09/11/2018 due to 4 days-AMS/behavioral changes, nausea, voimiting, diarrhea, weight loss and cough: Severe sepsis: still fever, worsening neutropenia; etio. bilateral pneumonia +/- gastroenteritis in the setting of newly diagnosed HIV +/- Syphilis menigitis +/- disseminated CVM. Blood culture 09/11/2018 no growth. Acute respiratory failure: likely multifactorial from multifocal pneumonia +/- volume overload +/- lethargy unable to handle secretions Bilateral pneumonia: initially felt to be PJP pneumonia in light of advanced AID S. Initial CXR showed RUL pneumonia. Initial CT abd showed bibasilar patchy infiltrates. Recent CT chest showed multifocal pneumonia ? aspiration. on atovaquone, levaquin and flagyl. Received bactrim IV x 8 days until 09/21/2018. 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 TTE EF>60. ? component of heart failure. Repeat CXT showed pulmonary edema. 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 Repeat LP 09/19 showed no pleocytosis, protein still high, low glucose (WBC 4, RBC 587, Lymph 71%, protein 123, glucose 32 on 09/19/2018). Should have good prognosis, but his mentation is not better after D5 of penicillin G. It may represent also effects from HIV virus or ? possible CMV encephalitis since CMV serum DNA PCR = 1,058,978. CSF YAYO virus DNA PCR neg. Diarrhea: resolved, likely due to Giardiasis as Giardia antigen positive in stool, in immunocompromised patient, on flagyl Oral candidiasis: better, on fluconazole Weight loss: likely from HIV/AIDS HIV, newly diagnosed with defining diseases - oral candidiasis and presumed PJP pneumonia. 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 He did not use condom consistently. - CD4=4 - VL=50,700 Elevated LFTs: resolved, likely due to severe sepsis. CT abdomen showed enlarged uncinate process of the pancreas incompletely evaluated. Viral hepatitis serologies all non reactive. Neutropenia/thrombocytopenia: likely from HIV myelosuppression +/- sepsis, thrombocytopenia reolved. should r/o disseminated MAC New MAL: ? polypharmacy (bactrim) ? HIV ? 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 Failure to do so after a year should prompt re-treatment. Overall prognosis guarded. Discussed with his sister yesterday. Will follow Alayna Strickland MD [facility] [place] [facility] C: [phone] O: [phone] F: [phone] Subjective Date of service: 09/22/18 Principal diagnosis: Severe sepsis; Ac hypoxemic Resp failure; Preston. Pneumonia; Ac encephalopathy Interval history: Patient remains critically ill lethargic intubated on Amidarone and Heparin gtt. Noted fever at 101.6. ROS: unable to obtain Objective - Exam Narrative Exam: Constitutional: Intubated somnolent open eyes in NAD Head, Ears, Nose: Normocephalic, atraumatic. External ears, nose normal Eyes: Conjunctivae/corneas clear. No icterus. No ptosis. Neck:no JVD, left anterior neck large hard nodule non tender Oral: ETT, OGT Cardiovascular: tachycardic Respiratory: distant BS GI: Soft, non-tender; bowel sounds normal. No peritoneal signs Musculoskeletal: No pedal edema, no cyanosis. Skin: No rash or abscess. Hem/Lymphatic: No palpable cervical or supraclavicular nodes. No lymphangitis Psych: somnolent Neurological: somnolent - Constitutional Vitals: Vital Signs Temp Pulse Resp BP Pulse Ox 98.7 F 92 H 16 101/34 100 09/22/18 12:00 09/22/18 14:06 09/22/18 13:19 09/22/18 14:06 09/22/18 13:11 Temperature -Last 24 Hours Temperature 98.7 F Temperature 99.1 F Temperature 100.1 F Temperature 98.5 F Temperature 101.6 F Temperature 100 F - Labs CBC & Chem 7: 09/22/18 07:00 09/22/18 07:00 Labs: Abnormal lab results 09/21/18 09/21/18 09/21/18 Range/Units 21:54 21:54 22:57 WBC (4.5-11.0) K/mm3 RBC (3.65-5.03) M/mm3 Hgb (11.8-15.2) gm/dl Hct (35.5-45.6) % Plt Count (140-440) K/mm3 Heparin Anti-Xa Level 0.98 H (0.3-0.7) U.I./ml POC ABG pCO2 (35-45) Potassium 5.2 H (3.6-5.0) mmol/L BUN (9-20) mg/dL Creatinine (0.8-1.5) mg/dL Glucose (75-100) mg/dL POC Glucose 124 H (70-105) Calcium (8.4-10.2) mg/dL 09/22/18 09/22/18 09/22/18 Range/Units 03:01 05:27 07:00 WBC 1.8 L* (4.5-11.0) K/mm3 RBC 3.59 L (3.65-5.03) M/mm3 Hgb 10.1 L (11.8-15.2) gm/dl Hct 30.8 L (35.5-45.6) % Plt Count 126 L (140-440) K/mm3 Heparin Anti-Xa Level (0.3-0.7) U.I./ml POC ABG pCO2 32.7 L (35-45) Potassium (3.6-5.0) mmol/L BUN (9-20) mg/dL Creatinine (0.8-1.5) mg/dL Glucose (75-100) mg/dL POC Glucose 128 H (70-105) Calcium (8.4-10.2) mg/dL 09/22/18 09/22/18 Range/Units 07:00 11:32 WBC (4.5-11.0) K/mm3 RBC (3.65-5.03) M/mm3 Hgb (11.8-15.2) gm/dl Hct (35.5-45.6) % Plt Count (140-440) K/mm3 Heparin Anti-Xa Level (0.3-0.7) U.I./ml POC ABG pCO2 (35-45) Potassium (3.6-5.0) mmol/L BUN 27 H (9-20) mg/dL Creatinine 2.0 H (0.8-1.5) mg/dL Glucose 128 H (75-100) mg/dL POC Glucose 123 H (70-105) Calcium 6.9 L (8.4-10.2) mg/dL
[2018-09-22] MEDS: LEVOPHED DRIP 4 MG/NS 250 ML 4 MG/250 ML BAG IV SCH (16:30)
[2018-09-22] MEDS ORDERED: CYTOVENE IV SCH (18:00)
[2018-09-22] MEDS ORDERED: NACL 0.9% IV SCH (18:00)
[2018-09-22] MEDS: SODIUM CHLORIDE FLUSH SYRINGE 10 ML IV SCH (18:21)
[2018-09-22] MEDS ORDERED: NACL 0.9% 500 ML 500 ML ONE (22:32)
[2018-09-23] MEDS: FLAGYL PO SCH ×4 (01:36→21:48)
[2018-09-23] MEDS: PEPCID IV SCH ×3 (01:37→21:49)
--- NOTE | 2018-09-23 02:15 | XRay Report ---
FINAL REPORT EXAM: XR CHEST 1V AP HISTORY: follow up respiratory failure TECHNIQUE: AP portable view of the chest. PRIORS: 09/21/2018 FINDINGS: There is a right arm PICC line in place with the tip in the distal SVC. There is a feeding tube in pl gutierrez with the tip in the stomach. The lungs are hypo aerated and there is a stable right basilar opaci ty most consistent with subsegmental atelectasis. The cardiomediastinal silhouette appears normal. Th e bones and soft tissues are unremarkable. IMPRESSION: Right basilar opacity most consistent with subsegmental atelectasis
[2018-09-23] MEDS: LEVOPHED DRIP 4 MG/NS 250 ML 4 MG/250 ML BAG IV SCH (02:40)
[2018-09-23] MEDS: PROVENTIL IH SCH ×4 (02:57→19:39)
[2018-09-23] MEDS: SYNTHROID PO SCH (06:06)
[2018-09-23] MEDS: LOPRESSOR IV SCH ×4 (06:07→21:02)
[2018-09-23 06:25] LABS: Hematocrit 30.3 % (35.5-45.6)
[2018-09-23] MEDS: PFIZERPEN 12 MIL.UNITS in NACL 0.9% 250ML 250 ML IV SCH (06:42)
[2018-09-23] MEDS: HEPARIN/ 0.45% NACL-25,000 UNIT/500 ML 25,000 UNIT/500 ML BAG IV SCH (06:42)
[2018-09-23] MEDS: TYLENOL PO PRN (08:41)
[2018-09-23 08:44] LABS: Hemoglobin 9.9 gm/dl (11.8-15.2); Mean Corpuscular HGB Conc 33 % (32-34); Mean Corpuscular Volume 85 fl (84-94); Platelet Count 119 K/mm3 (140-440); Red Blood Count 3.53 M/mm3 (3.65-5.03)
[2018-09-23 09:04] LABS: BUN/Creatinine Ratio 16; Blood Urea Nitrogen 19 mg/dL (9-20); Calcium 6.9 mg/dL (8.4-10.2); Hemolysis Index 3
[2018-09-23] MEDS: LEVAQUIN 750MG/150ML 750 MG/150 ML BAG IV SCH (09:53)
[2018-09-23] MEDS: DIFLUCAN 200 ML IV SCH (09:53)
[2018-09-23] MEDS: MEPRON PO SCH ×2 (09:54→21:49)
[2018-09-23] MEDS: CORDARONE 900 MG in D5W 482 ML IV SCH (09:54)
[2018-09-23] MEDS: SODIUM CHLORIDE FLUSH SYRINGE 10 ML IV SCH ×3 (10:00→23:25)
--- NOTE | 2018-09-23 10:05 | Progress Note ---
Assessment and Plan D/C IV amiodarone. PO amiodarone thro' feeding tube.F/U CBC.To continue IV heparin.Prognosis is guarded. - Patient Problems (1) Thrombocytopenia Current Visit: Yes Status: Acute (2) Acute kidney failure with tubular necrosis Current Visit: Yes Status: Acute (3) Acute respiratory failure with hypoxia Current Visit: Yes Status: Chronic (4) Atrial fibrillation and flutter Current Visit: Yes Status: Resolved (5) Diarrhea Current Visit: Yes Status: Acute (6) Encephalopathy Current Visit: Yes Status: Acute (7) Neutropenia Current Visit: Yes Status: Acute (8) Pneumonia Current Visit: Yes Status: Acute (9) Right upper lobe pulmonary infiltrate Current Visit: Yes Status: Acute (10) Sepsis Current Visit: Yes Status: Acute (11) HIV (human immunodeficiency virus infection) Current Visit: Yes Status: Chronic (12) Hypothyroidism Current Visit: Yes Status: Suspected (13) Acidosis Current Visit: No Status: Resolved Subjective Date of service: 09/23/18 Principal diagnosis: Severe sepsis; Ac hypoxemic Resp failure; Preston. Pneumonia; Ac encephalopathy Interval history: Lethargic, on vent.WBC 1.3 Plt: 110.Improved renal function. BUN 19, Cr 1 .2.Rhythm: Sinus tachycardia. Objective Vital Signs Temp Pulse Pulse Pulse Resp Resp Resp 09/23/18 09:00 91 H 29 H 09/23/18 08:31 102 H 32 H 09/23/18 08:00 103.1 F H 99 H 104 H 100 H 29 H 22 24 09/23/18 07:35 96 H 09/23/18 07:31 100 H 33 H 09/23/18 07:01 101 H 23 09/23/18 06:31 112 H 33 H 09/23/18 06:07 93 H 09/23/18 06:01 88 27 H 09/23/18 05:31 88 24 09/23/18 05:00 92 H 29 H 09/23/18 04:31 91 H 24 09/23/18 04:10 101 H 09/23/18 04:01 102 H 18 09/23/18 03:48 102.3 F H 09/23/18 03:31 102 H 21 09/23/18 03:01 103 H 18 09/23/18 02:58 102 H 22 09/23/18 02:31 97 H 20 09/23/18 02:00 97 H 26 H 09/23/18 01:31 94 H 26 H 09/23/18 01:00 101 H 18 09/23/18 00:31 93 H 25 H 09/23/18 00:05 95 H 09/23/18 00:00 96 H 24 09/22/18 23:53 96 H 21 09/22/18 23:31 99 H 22 09/22/18 23:18 99.7 F H 09/22/18 23:00 92 H 18 09/22/18 22:31 90 25 H 09/22/18 22:00 90 19 09/22/18 21:31 90 23 09/22/18 21:00 86 19 09/22/18 20:48 84 20 09/22/18 20:31 81 22 09/22/18 20:26 86 09/22/18 20:08 09/22/18 20:00 98.9 F 82 20 09/22/18 19:54 81 09/22/18 19:53 81 20 09/22/18 19:30 84 19 09/22/18 19:00 83 16 09/22/18 18:30 84 17 09/22/18 18:00 81 17 09/22/18 17:51 72 14 09/22/18 17:41 86 20 09/22/18 17:30 89 18 09/22/18 17:21 92 H 18 09/22/18 17:11 83 21 09/22/18 17:02 82 09/22/18 17:00 85 20 09/22/18 16:51 85 17 09/22/18 16:41 83 21 09/22/18 16:30 87 17 09/22/18 16:21 83 18 09/22/18 16:11 85 16 09/22/18 16:00 98.5 F 82 17 09/22/18 15:51 91 H 16 09/22/18 15:41 88 12 09/22/18 15:30 90 15 09/22/18 15:21 83 17 09/22/18 15:11 85 18 09/22/18 15:00 86 20 09/22/18 14:51 85 18 09/22/18 14:40 87 20 09/22/18 14:30 92 H 19 02/07/19 14:20 90 21 09/22/18 14:11 96 H 23 09/22/18 14:06 92 H 09/22/18 14:00 91 H 19 09/22/18 13:51 93 H 12 09/22/18 13:41 98 H 24 09/22/18 13:30 100 H 18 09/22/18 13:21 95 H 19 09/22/18 13:19 96 H 16 09/22/18 13:12 96 H 16 09/22/18 13:11 93 H 19 09/22/18 13:00 92 H 19 09/22/18 12:51 92 H 19 09/22/18 12:41 91 H 16 09/22/18 12:31 92 H 22 09/22/18 12:21 92 H 17 09/22/18 12:11 94 H 12 09/22/18 12:00 98.7 F 94 H 22 09/22/18 11:51 95 H 17 09/22/18 11:41 95 H 17 09/22/18 11:31 97 H 22 09/22/18 11:21 95 H 22 09/22/18 11:13 101 H 09/22/18 11:11 97 H 22 09/22/18 11:00 94 H 16 09/22/18 10:51 98 H 19 09/22/18 10:41 93 H 21 09/22/18 10:30 90 19 09/22/18 10:21 92 H 22 09/22/18 10:11 93 H 20 BP Pulse Ox 09/23/18 09:00 121/61 98 09/23/18 08:31 104/53 97 09/23/18 08:00 104/53 97 09/23/18 07:35 93/39 100 09/23/18 07:31 115/49 97 09/23/18 07:01 95/50 100 09/23/18 06:31 115/49 95 09/23/18 06:07 93/39 09/23/18 06:01 115/49 99 09/23/18 05:31 117/62 98 09/23/18 05:00 119/54 98 09/23/18 04:31 115/67 99 09/23/18 04:10 115/67 100 09/23/18 04:01 117/62 100 09/23/18 03:48 09/23/18 03:31 115/67 100 09/23/18 03:01 115/67 100 09/23/18 02:58 02 02:31 118/57 100 09/23/18 02:00 126/66 100 09/23/18 01:31 96/36 100 09/23/18 01:00 96/36 99 09/23/18 00:31 96/34 100 09/23/18 00:05 110/36 100 09/23/18 00:00 110/36 100 09/22/18 23:53 96/34 100 09/22/18 23:31 96/34 100 09/22/18 23:18 09/22/18 23:00 83/33 100 09/22/18 22:31 93/42 100 09/22/18 22:00 93/42 98 09/22/18 21:31 93/39 100 09/22/18 21:00 93/39 100 09/22/18 20:48 09/22/18 20:31 94/38 99 09/22/18 20:26 94/38 09/22/18 20:08 100 09/22/18 20:00 94/38 100 09/22/18 19:54 106/46 100 09/22/18 19:53 09/22/18 19:30 86/42 100 09/22/18 19:00 104/45 100 09/22/18 18:30 95/38 100 09/22/18 18:00 101/36 100 09/22/18 17:51 115/42 100 09/22/18 17:41 107/41 100 09/22/18 17:30 107/41 100 09/22/18 17:21 111/37 100 09/22/18 17:11 104/33 100 09/22/18 17:02 104/33 100 09/22/18 17:00 104/33 100 09/22/18 16:51 111/37 100 09/22/18 16:41 106/31 95 09/22/18 16:30 77/35 100 09/22/18 16:21 84/36 100 09/22/18 16:11 88/40 100 09/22/18 16:00 88/40 100 09/22/18 15:51 99/39 100 09/22/18 15:41 95/30 100 09/22/18 15:30 95/30 100 09/22/18 15:21 105/37 99 09/22/18 15:11 96/34 100 09/22/18 15:00 103/30 100 09/22/18 14:51 96/33 99 09/22/18 14:40 96/33 100 09/22/18 14:30 96/33 100 09/22/18 14:20 99/35 99 09/22/18 14:11 101/34 99 09/22/18 14:06 101/34 09/22/18 14:00 101/34 98 09/22/18 13:51 101/34 98 09/22/18 13:41 103/56 100 09/22/18 13:30 103/56 100 09/22/18 13:21 118/46 100 09/22/18 13:19 09/22/18 13:12 09/22/18 13:11 113/53 100 09/22/18 13:00 113/53 100 09/22/18 12:51 109/46 100 09/22/18 12:41 99/54 100 09/22/18 12:31 99/54 100 09/22/18 12:21 106/46 100 09/22/18 12:11 102/53 100 09/22/18 12:00 102/53 100 09/22/18 11:51 91/54 100 09/22/18 11:41 99/53 100 09/22/18 11:31 99/53 100 09/22/18 11:21 107/50 100 09/22/18 11:13 101/53 100 09/22/18 11:11 96/54 100 09/22/18 11:00 96/54 100 09/22/18 10:51 88/43 99 09/22/18 10:41 99/45 100 09/22/18 10:30 99/45 100 09/22/18 10:21 106/49 100 09/22/18 10:11 109/45 100 - Physical Examination General: Other (intubated, lethargic, unresponsive) HEENT: Positive: PERRL Neck: Positive: neck supple. Negative: JVD/HJR Cardiac: Positive: Tachycardia Lungs: Positive: Normal Breath Sounds, Other (Scattered rhonchi.) Neuro: Positive: Grossly Intact, Other (Lethargic, unresponsive) Abdomen: Positive: Unremarkable Skin: Negative: Rash Musculoskeletal: No Fluid Collection, Normal Range of Motion Extremities: Present: edema, +1 Edema - Labs and Meds CBC 09/23/18 09/23/18 Range/Units 05:55 08:10 WBC 1.3 L* (4.5-11.0) K/mm3 RBC 3.53 L (3.65-5.03) M/mm3 Hgb 10.0 L 9.9 L (11.8-15.2) gm/dl Hct 30.3 L 30.0 L (35.5-45.6) % Plt Count 117 L 119 L (140-440) K/mm3 Comprehensive Metabolic Panel 09/23/18 Range/Units 08:10 Sodium 140 (137-145) mmol/L Potassium 3.8 (3.6-5.0) mmol/L Chloride 105.7 (98-107) mmol/L Carbon Dioxide 24 (22-30) mmol/L BUN 19 (9-20) mg/dL Creatinine 1.2 (0.8-1.5) mg/dL Glucose 122 H (75-100) mg/dL Calcium 6.9 L (8.4-10.2) mg/dL - Imaging and Cardiology EKG: report reviewed, image reviewed Echo: report reviewed ( normal LV, no significant valvular abnormalities. ) - Telemetry EKG Rhythm: Sinus Tachycardia - EKG Sinus rhythms and dysrhythmias: sinus rhythm, sinus arrest or pause (Patient had very transient junctional rythm at rate of 35/mt,with sinus pause,lasted< one minute,reverted to judson S.R at >90/mt at 08:12 AM,09/18/2018.) Supraventricular dysrhythmia: atrial flutter - Allied health notes Allied health notes reviewed: nursing
--- NOTE | 2018-09-23 10:17 | Progress Note ---
Assessment and Plan - Patient Problems (1) Acute kidney failure with tubular necrosis Current Visit: Yes Status: Acute Plan to address problem: suspect acute tubular necrosis in the setting of sepsis and hypotensive episodes. recent treatment with bactrim could have contributed to rising K/Cr. Renal function improved and hyperkalemia resolved after stopping bactrim. Cr down to 1.2mg/dl. avoid further nephrotoxins, IV Contrast, NSAIDs. Will monitor I/Os, lytes and renal parameters closely and make further recommendations. (2) Hyperkalemia Current Visit: Yes Status: Acute Plan to address problem: resolved after medical treatment and stopping bactrim. cont 2g K renal diet. (3) Sepsis Current Visit: Yes Status: Acute Plan to address problem: cont ABXs treatment as per ID. IV fluid prn to maintain MAP < 65mmHg (4) AIDS Current Visit: Yes Status: Suspected Plan to address problem: management as per ID (5) Acute respiratory failure with hypoxia Current Visit: Yes Status: Chronic Plan to address problem: vent management as per pulm/CCM (6) Pneumonia Current Visit: Yes Status: Acute Plan to address problem: on ABXs treamtent with levaquin, flagyl, azithromycin, mepron as per ID. Subjective Date of service: 09/23/18 Principal diagnosis: Severe sepsis; Ac hypoxemic Resp failure; Preston. Pneumonia; Ac encephalopathy Interval history: Pt remains intubated, sedated Objective - Vital Signs Vital signs: Vital Signs - 12hr 09/22/18 09/22/18 09/22/18 22:31 23:00 23:18 Temperature 99.7 F H Pulse Rate 90 92 H Pulse Rate [ Anterior Bilateral Throughout] Pulse Rate [ Bilateral] Respiratory 25 H 18 Rate Respiratory Rate [Anterior Bilateral Throughout] Respiratory Rate [Bilateral ] Blood Pressure 93/42 83/33 O2 Sat by Pulse 100 100 Oximetry 09/22/18 09/22/18 09/23/18 23:31 23:53 00:00 Temperature Pulse Rate 99 H 96 H 96 H Pulse Rate [ Anterior Bilateral Throughout] Pulse Rate [ Bilateral] Respiratory 22 21 24 Rate Respiratory Rate [Anterior Bilateral Throughout] Respiratory Rate [Bilateral ] Blood Pressure 96/34 96/34 110/36 O2 Sat by Pulse 100 100 100 Oximetry 09/23/18 09/23/18 09/23/18 00:05 00:31 01:00 Temperature Pulse Rate 95 H 93 H 101 H Pulse Rate [ Anterior Bilateral Throughout] Pulse Rate [ Bilateral] Respiratory 25 H 18 Rate Respiratory Rate [Anterior Bilateral Throughout] Respiratory Rate [Bilateral ] Blood Pressure 110/36 96/34 96/36 O2 Sat by Pulse 100 100 99 Oximetry 09/23/18 09/23/18 09/23/18 01:31 02:00 02:31 Temperature Pulse Rate 94 H 97 H 97 H Pulse Rate [ Anterior Bilateral Throughout] Pulse Rate [ Bilateral] Respiratory 26 H 26 H 20 Rate Respiratory Rate [Anterior Bilateral Throughout] Respiratory Rate [Bilateral ] Blood Pressure 96/36 126/66 118/57 O2 Sat by Pulse 100 100 100 Oximetry 09/23/18 09/23/18 09/23/18 02:58 03:01 03:31 Temperature Pulse Rate 103 H 102 H Pulse Rate [ 102 H Anterior Bilateral Throughout] Pulse Rate [ Bilateral] Respiratory 18 21 Rate Respiratory 22 Rate [Anterior Bilateral Throughout] Respiratory Rate [Bilateral ] Blood Pressure 115/67 115/67 O2 Sat by Pulse 100 100 Oximetry 09/23/18 09/23/18 09/23/18 03:48 04:01 04:10 Temperature 102.3 F H Pulse Rate 102 H 101 H Pulse Rate [ Anterior Bilateral Throughout] Pulse Rate [ Bilateral] Respiratory 18 Rate Respiratory Rate [Anterior Bilateral Throughout] Respiratory Rate [Bilateral ] Blood Pressure 117/62 115/67 O2 Sat by Pulse 100 100 Oximetry 09/23/18 09/23/18 09/23/18 04:31 05:00 05:31 Temperature Pulse Rate 91 H 92 H 88 Pulse Rate [ Anterior Bilateral Throughout] Pulse Rate [ Bilateral] Respiratory 24 29 H 24 Rate Respiratory Rate [Anterior Bilateral Throughout] Respiratory Rate [Bilateral ] Blood Pressure 115/67 119/54 117/62 O2 Sat by Pulse 99 98 98 Oximetry 09/23/18 09/23/18 09/23/18 06:01 06:07 06:31 Temperature Pulse Rate 88 93 H 112 H Pulse Rate [ Anterior Bilateral Throughout] Pulse Rate [ Bilateral] Respiratory 27 H 33 H Rate Respiratory Rate [Anterior Bilateral Throughout] Respiratory Rate [Bilateral ] Blood Pressure 115/49 93/39 115/49 O2 Sat by Pulse 99 95 Oximetry 09/23/18 09/23/18 09/23/18 07:01 07:31 07:35 Temperature Pulse Rate 101 H 100 H 96 H Pulse Rate [ Anterior Bilateral Throughout] Pulse Rate [ Bilateral] Respiratory 23 33 H Rate Respiratory Rate [Anterior Bilateral Throughout] Respiratory Rate [Bilateral ] Blood Pressure 95/50 115/49 93/39 O2 Sat by Pulse 100 97 100 Oximetry 09/23/18 09/23/18 09/23/18 08:00 08:31 09:00 Temperature 103.1 F H Pulse Rate 99 H 102 H 91 H Pulse Rate [ 104 H Anterior Bilateral Throughout] Pulse Rate [ 100 H Bilateral] Respiratory 29 H 32 H 29 H Rate Respiratory 22 Rate [Anterior Bilateral Throughout] Respiratory 24 Rate [Bilateral ] Blood Pressure 104/53 104/53 121/61 O2 Sat by Pulse 97 97 98 Oximetry - General Appearance General appearance: well-developed, appears stated age, sedated on ventilator, intubated EENT: ATNC, mucous membranes moist Neck: no JVD Respiratory: Present: Decreased Breath Sounds Cardiology: regular, S1S2 Gastrointestinal: normoactive bowel sounds Integumentary: no rash, other (no pitting edema ) Neurologic: no focal deficit, alert and oriented x3, strength 5/5, CN 3-12 intact Psychiatric: mood/affect appropriate, cooperative - Lab 09/23/18 08:10 09/23/18 08:10 Most recent lab results Calcium 6.9 mg/dL (8.4-10.2) L 09/23/18 08:10 Magnesium 2.10 mg/dL (1.7-2.3) 09/21/18 10:07 Medications & Allergies - Medications Allergies/Adverse Reactions: Allergies No Known Allergies Allergy (Unverified 09/11/18 17:50) Active Medications: Generic Name Dose Route Start Last Admin Trade Name Kalinq PRN Reason Stop Dose Admin Acetaminophen 650 mg 09/11/18 19:30 09/23/18 08:41 Tylenol PO 650 mg Q4H PRN Administration Pain MILD(1-3)/Fever >100.5/RIVERA Acetaminophen 650 mg 09/21/18 07:39 Tylenol [place] Q4H PRN Fever >101 Albuterol 2.5 mg 09/11/18 19:30 09/16/18 06:09 Proventil IH 2.5 mg Q4HRT PRN Administration Shortness Of Breath Albuterol 2.5 mg 09/20/18 20:00 09/23/18 07:59 Proventil IH 2.5 mg Q6HRT GIA Administration Lipase/Protease/Amylase 1 each 09/19/18 15:[address] 10,500 Unit FEEDTUBE PRN PRN For Clogged Feeding Tube Atovaquone 750 mg 09/21/18 10:00 09/23/18 09:54 Mepron PO 750 mg BID GIA Administration Azithromycin 1,200 mg 09/25/18 10:00 Zithromax PO [place] GIA Famotidine 20 mg 09/21/18 10:00 09/23/18 09:53 Pepcid IV 20 mg BID GIA Administration Fentanyl 50 mcg 09/21/18 01:46 09/22/18 13:45 Sublimaze IV 50 mcg Q10MIN PRN Administration ANALGESIA Hydrophilic Ointment 1 applic 09/21/18 01:46 09/22/18 03:46 Vaseline Lip Therapy TP 1 applic Q2HR PRN Administration Dry Lips Fluconazole 200 mls @ 100 mls/hr 09/13/18 14:00 09/23/18 09:53 Diflucan IV 100 mls/hr Q24HR GIA Administration Protocol Levofloxacin/Dextrose 750 mg in 150 mls @ 100 mls/hr 09/18/18 16:00 09/23/18 09:53 Levaquin 750mg/150ml IV 100 mls/hr Q24HR GIA Administration Protocol Penicillin G Potassium 12 mil. 250 mls @ 20.833 mls/hr 09/19/18 18:00 09/23/18 06:42 units/ Sodium Chloride IV 20.83 mls/hr Q12H GIA Administration Fentanyl Citrate 2,000 mcg in 100 mls @ 5.16 mls/hr 09/21/18 02:00 Fentanyl Drip Premix IV TITR GIA Protocol 1 MCG/KG/HR Midazolam HCl 100 mg/ Sodium 100 mls @ 2 mls/hr 09/21/18 02:00 09/21/18 15:39 Chloride IV 0 mg/hr TITR GIA 0 mls/hr Titration Protocol 2 MG/HR Amiodarone HCl 900 mg/ 500 mls @ 33.33 mls/hr 09/21/18 10:00 09/23/18 09:54 Dextrose IV 0.5 mg/min DIRECT GIA 16.67 mls/hr Administration Protocol 1 MG/MIN Heparin Sodium/Sodium Chloride 25,000 unit in 500 mls @ 30 mls/hr 09/21/18 11:00 09/23/18 07:58 Heparin/ 0.45% Nacl-25,000 Unit/500 Ml IV 1,400 units/hr TITR GIA 28 mls/hr Titration Protocol 1,500 UNITS/HR Norepinephrine 4 mg in 250 mls @ 7.5 mls/hr 09/22/18 16:00 09/23/18 09:56 Levophed Drip 4 Mg/Ns 250 Ml IV 6 mcg/min TITR GIA 22.5 mls/hr Titration Protocol 2 MCG/MIN Ganciclovir Sodium 250 mg/ 250 mls @ 100 mls/hr 09/22/18 18:00 09/22/18 22:26 Sodium Chloride IV 100 mls/hr Q24H GIA Administration Levothyroxine Sodium 25 mcg 09/19/18 06:00 09/23/18 06:06 Synthroid PO 25 mcg DAILY@0600 [facility] Administration Metoprolol Tartrate 5 mg 09/21/18 03:00 09/23/18 06:07 Lopressor IV Not Given Q6H [facility] Metronidazole 500 mg 09/19/18 14:00 09/23/18 06:06 Flagyl PO 500 mg Q8HR [facility] Administration Protocol Midazolam HCl 2 mg 09/21/18 01:46 Versed IV Q10MIN PRN Sedation Multi-Ingred Cream/Lotion/Oil/Oint 1 applic 09/21/18 01:46 Artificial Tears Ophth Oint OU Q4HR PRN Dry Eye(s) Ondansetron HCl 4 mg 09/11/18 19:30 Zofran IV Q8H PRN Nausea And Vomiting Scopolamine 1 each 09/18/18 18:00 09/21/18 17:14 Transderm-Scop TD 1 each Q3D GIA Administration Simple Syrup 15 ml 09/19/18 15:54 Simple Syrup FEEDTUBE PRN PRN Hypoglycemia Simple Syrup 30 ml 09/19/18 15:54 Simple Syrup FEEDTUBE PRN PRN Hypoglycemia Sodium Bicarbonate 325 mg 09/19/18 15:54 Sodium Bicarbonate FEEDTUBE PRN PRN For Clogged Feeding Tube Sodium Chloride 10 ml 09/11/18 22:00 09/22/18 18:21 Sodium Chloride Flush Syringe 10 Ml IV Not Given BID GIA Sodium Chloride 10 ml 09/11/18 19:30 Sodium Chloride Flush Syringe 10 Ml IV PRN PRN LINE FLUSH
--- NOTE | 2018-09-23 10:52 | Progress Note ---
Assessment and Plan Assessment and plan: Severe Sepsis. Etiology secondary to bacterial pneumonia +/- gastroenteritis with newly diagnosed with HIV. Continue IV antibiotics per ID. Acute hypoxemic respiratory failure. Etiology secondary to sepsis/multifocal pneumonia with probable concomitant aspiration. Bilateral pneumonia. Etiology likely secondary to PJP Pneumonia +/- aspiration. Chest x-ray, CT scan reveals multifocal pneumonia. Follow-up tracheal aspirate. Toxic metabolic encephalopathy. 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 Continue antibiotics per ID. Gastroenteritis. Follow-up stool studies and CT scan of the abdomen and pelvis--check for colitis with patient is hemodynamically stable. Continue antibiotics per ID A. fib with RVR. Converted to NSR. IV amiodarone and heparin drip. 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 Repeat LP yesterday showed no pleocytosis, protein still high, low glucose (WBC 4, RBC 587, Lymph 71%, protein 123, glucose 32 on 09/19/2018). Should have good prognosis, but his mentation is not better after D4 of penicillin G. It may represent also effects from HIV virus. Per ID Diarrhea. Resolved, etiology likely secondary to Giardia. Giardia antigen positive in stool. CT scan as above Oral candidiasis. Continue fluconazole. HIV/AIDS. New Diagnosis. Neutropenia/thrombocytopenia. Likely from HIV myelosuppression, sepsis Prognosis is guarded. The high probability of a clinically significant, sudden or life threatening deterioration of the [cardiac, respiratory and neuro] system(s) required my full and direct attention, intervention and personal management. The aggregate critical care time was [31] minutes. This time is in addition to time spent performing reported procedures but includes the following: [x] Data Review and interpretation [x] Patient assessment and monitoring of vital signs [x] Documentation [x] Medication orders and management History Interval history: Patient is 33 yo initially presented with diarrhea, found to have pneumonia, sepsis, HIV/AIDS(new diagnosis) with CD4 count of 4. He was started on abx for PJP. His mental status has worsened with confusion, lethargy. LP done . He was diagnosed with neurosyphilis. Started on Penicillin. Closest family is sister in [place], and dr. Baltazar spoke to her several times about diagnosis but did not tell her about HIV/AIDS because of patient confidentiality. The patient decompensated on 09/20/18 with acute hypoxemic respiratory failure and worsening toxic metabolic encephalopathy requiring transfer to ICU and intubation. He now remains on mechanical ventilation. The patient was also noted to develop SVT requiring amiodarone drip as well as heparin drip. Patient has now converted back to normal sinus rhythm but remains critically ill. Hospitalist Physical - Constitutional Vitals: Temp Pulse Resp BP Pulse Ox 103.1 F H 91 H 29 H 121/61 98 09/23/18 08:00 09/23/18 09:00 09/23/18 09:00 09/23/18 09:00 09/23/18 09:00 General appearance: Present: severe distress - EENT Eyes: Present: PERRL, EOM intact ENT: hearing intact, clear oral mucosa, dentition normal - Neck Neck: Present: supple, normal ROM - Respiratory Respiratory effort: normal Respiratory: bilateral: diminished, rhonchi - Cardiovascular Rhythm: regular Heart Sounds: Present: S1 & S2. Absent: gallop, rub - Extremities Extremities: no ischemia, No edema, Full ROM - Abdominal General gastrointestinal: soft, non-tender, non-distended, normal bowel sounds - Integumentary Integumentary: Present: clear, warm, dry - Neurologic Neurologic: CNII-XII intact, moves all extremities Results - Labs CBC & Chem 7: 09/23/18 08:10 09/23/18 08:10 Labs: Laboratory Last Values WBC 1.3 K/mm3 (4.5-11.0) L* 09/23/18 08:10 RBC 3.53 M/mm3 (3.65-5.03) L 09/23/18 08:10 Hgb 9.9 gm/dl (11.8-15.2) L 09/23/18 08:10 Hct 30.0 % (35.5-45.6) L 09/23/18 08:10 MCV 85 fl (84-94) 09/23/18 08:10 MCH 28 pg (28-32) 09/23/18 08:10 MCHC 33 % (32-34) 09/23/18 08:10 RDW 14.0 % (13.2-15.2) 09/23/18 08:10 Plt Count 119 K/mm3 (140-440) L 09/23/18 08:10 [place] % (Auto) Filterer 09/21/18 04:15 Add Manual Diff Complete 09/21/18 04:15 Total Counted 100 09/21/18 04:15 Seg Neuts % (Manual) 52.0 % (40.0-70.0) 09/21/18 04:15 Band Neutrophils % 18.0 % 09/21/18 04:15 Lymphocytes % (Manual) 16.0 % (13.4-35.0) 09/21/18 04:15 Reactive Lymphs % (Man) 0 % 09/21/18 04:15 Monocytes % (Manual) 12.0 % (0.0-7.3) H 09/21/18 04:15 Eosinophils % (Manual) 0 % (0.0-4.3) 09/21/18 04:15 Basophils % (Manual) 0 % (0.0-1.8) 09/21/18 04:15 Metamyelocytes % 0 % 09/21/18 04:15 Myelocytes % 1.0 % 09/21/18 04:15 Promyelocytes % 1.0 % 09/21/18 04:15 Blast Cells % 0 % 09/21/18 04:15 Nucleated RBC % Not Reportable 09/21/18 04:15 Seg Neutrophils # Man 1.6 K/mm3 (1.8-7.7) L 09/21/18 04:15 Band Neutrophils # 0.6 K/mm3 09/21/18 04:15 Abs Lymphs (Manual) 309 cells/uL (850-3900) L 09/13/18 12:29 Lymphocytes # (Manual) 0.5 K/mm3 (1.2-5.4) L 09/21/18 04:15 Abs React Lymphs (Man) 0.0 K/mm3 09/21/18 04:15 Monocytes # (Manual) 0.4 K/mm3 (0.0-0.8) 09/21/18 04:15 Eosinophils # (Manual) 0.0 K/mm3 (0.0-0.4) 09/21/18 04:15 Basophils # (Manual) 0.0 K/mm3 (0.0-0.1) 09/21/18 04:15 Metamyelocytes # 0.0 K/mm3 09/21/18 04:15 Myelocytes # 0.0 K/mm3 09/21/18 04:15 Promyelocytes # 0.0 K/mm3 09/21/18 04:15 Blast Cells # 0.0 K/mm3 09/21/18 04:15 WBC Morphology Not Reportable 09/21/18 04:15 Hypersegmented Neuts Not Reportable 09/21/18 04:15 Hyposegmented Neuts Not Reportable 09/21/18 04:15 Hypogranular Neuts Not Reportable 09/21/18 04:15 Smudge Cells Not Reportable 09/21/18 04:15 Toxic Granulation Not Reportable 09/21/18 04:15 Toxic Vacuolation Not Reportable 09/21/18 04:15 Dohle Bodies Not Reportable 09/21/18 04:15 Pelger-Huet Anomaly Not Reportable 09/21/18 04:15 Giovanna Rods Not Reportable 09/21/18 04:15 Platelet Estimate Appears normal 09/21/18 04:15 Clumped Platelets Not Reportable 09/21/18 04:15 Plt Clumps, EDTA Not Reportable 09/21/18 04:15 Large Platelets Not Reportable 09/21/18 04:15 Giant Platelets Not Reportable 09/21/18 04:15 Platelet Satelliting Not Reportable 09/21/18 04:15 Plt Morphology Comment Not Reportable 09/21/18 04:15 RBC Morphology Not Reportable 09/21/18 04:15 Dimorphic RBCs Not Reportable 09/21/18 04:15 Polychromasia Not Reportable 09/21/18 04:15 Hypochromasia 1+ 09/21/18 04:15 Poikilocytosis Not Reportable 09/21/18 04:15 Anisocytosis 1+ 09/21/18 04:15 Microcytosis Few 09/21/18 04:15 Macrocytosis Not Reportable 09/21/18 04:15 Spherocytes Not Reportable 09/21/18 04:15 Pappenheimer Bodies Not Reportable 09/21/18 04:15 Sickle Cells Not Reportable 09/21/18 04:15 Target Cells Rare 09/21/18 04:15 Tear Drop Cells Not Reportable 09/21/18 04:15 Ovalocytes 1+ 09/21/18 04:15 Stomatocytes Few 09/21/18 04:15 Helmet Cells Not Reportable 09/21/18 04:15 [place] Bodies Not Reportable 09/21/18 04:15 [place] Rings Not Reportable 09/21/18 04:15 [place] Cells Not Reportable 09/21/18 04:15 Bite Cells Not Reportable 09/21/18 04:15 Crenated Cell Not Reportable 09/21/18 04:15 Elliptocytes Few 09/21/18 04:15 Acanthocytes (Spur) Not Reportable 09/21/18 04:15 Rouleaux Not Reportable 09/21/18 04:15 Hemoglobin C Crystals Not Reportable 09/21/18 04:15 Schistocytes Not Reportable 09/21/18 04:15 Malaria parasites Not Reportable 09/21/18 04:15 Kieran Bodies Not Reportable 09/21/18 04:15 Hem Pathologist Commnt No 09/21/18 04:15 PT 19.9 Sec. (12.2-14.9) H 09/21/18 15:00 INR 1.65 (0.87-1.13) H 09/21/18 15:00 APTT 40.9 Sec. (24.2-36.6) H 09/21/18 15:00 Heparin Anti-Xa Level 0.26 U.I./ml (0.3-0.7) L 09/23/18 05:55 POC ABG pH 7.435 (7.35-7.45) 09/23/18 04:10 POC ABG pCO2 38.6 (35-45) 09/23/18 04:10 POC ABG pO2 144 (80-105) H 09/23/18 04:10 POC ABG HCO3 26.0 09/23/18 04:10 POC ABG Total CO2 27 09/23/18 04:10 POC ABG O2 Sat 99 09/23/18 04:10 POC ABG Base Excess 2 09/23/18 04:10 FiO2 40 % 09/23/18 04:10 Sodium 140 mmol/L (137-145) 09/23/18 08:10 Potassium 3.8 mmol/L (3.6-5.0) 09/23/18 08:10 Chloride 105.7 mmol/L (98-107) 09/23/18 08:10 Carbon Dioxide 24 mmol/L (22-30) 09/23/18 08:10 Anion Gap 14 mmol/L 09/23/18 08:10 BUN 19 mg/dL (9-20) 09/23/18 08:10 Creatinine 1.2 mg/dL (0.8-1.5) 09/23/18 08:10 Estimated GFR > 60 ml/min 09/23/18 08:10 BUN/Creatinine Ratio 16 % 09/23/18 08:10 Glucose 122 mg/dL (75-100) H 09/23/18 08:10 POC Glucose 93 (70-105) 09/23/18 05:00 Lactic Acid 0.90 mmol/L (0.7-2.0) 09/11/18 20:17 Calcium 6.9 mg/dL (8.4-10.2) L 09/23/18 08:10 Magnesium 2.10 mg/dL (1.7-2.3) 09/21/18 10:07 Total Bilirubin 0.30 mg/dL (0.1-1.2) 09/21/18 10:07 Direct Bilirubin < 0.2 mg/dL (0-0.2) 09/13/18 07:31 AST 94 units/L (5-40) H 09/21/18 10:07 ALT 28 units/L (7-56) 09/21/18 10:07 Alkaline Phosphatase 57 units/L (35-129) 09/21/18 10:07 Ammonia 47.0 umol/L (25-60) 09/16/18 11:41 Total Creatine Kinase 685 units/L (55-170) H 09/21/18 04:25 CK-MB (CK-2) 3.5 ng/mL (0.0-4.0) 09/21/18 04:25 CK-MB (CK-2) Rel Index 0.5 (0-4) 09/21/18 04:25 NT-Pro-B Natriuret Pep 145.9 pg/mL (0-450) 09/18/18 16:07 Total Protein 6.8 g/dL (6.3-8.2) 09/21/18 10:07 Albumin 2.8 g/dL (3.9-5) L 09/21/18 10:07 Albumin/Globulin Ratio 0.7 % 09/21/18 10:07 Vitamin B12 934.5 pg/mL (211-911) H 09/16/18 11:41 TSH 5.190 mlU/mL (0.270-4.200) H 09/18/18 12:46 Free T4 0.75 ng/dL (0.76-1.46) L 09/18/18 12:46 Urine Color [place] (Yellow) 09/11/18 Unknown Urine Turbidity Clear (Clear) 09/11/18 Unknown Urine pH 5.0 (5.0-7.0) 09/11/18 Unknown Ur Specific [place] 1.016 (1.003-1.030) 09/11/18 Unknown Urine Protein <15 mg/dl mg/dL (Negative) 09/11/18 Unknown Urine Glucose (UA) Neg mg/dL (Negative) 09/11/18 Unknown Urine Ketones Neg mg/dL (Negative) 09/11/18 Unknown Urine Blood Sm (Negative) 09/11/18 Unknown Urine Nitrite Neg (Negative) 09/11/18 Unknown Urine Bilirubin Neg (Negative) 09/11/18 Unknown Urine Urobilinogen < 2.0 mg/dL (<2.0) 09/11/18 Unknown Ur Leukocyte Esterase Neg (Negative) 09/11/18 Unknown Urine WBC (Auto) 1.0 /HPF (0.0-6.0) 09/11/18 Unknown Urine RBC (Auto) 3.0 /HPF (0.0-6.0) 09/11/18 Unknown Urine Mucus Few /HPF 09/11/18 Unknown CSF Appearance Clear 09/19/18 15:00 CSF Color Colorless 09/19/18 15:00 CSF WBC 4 /mm3 (1-10) 09/19/18 15:00 CSF RBC 583 /mm3 (0-0) 09/19/18 15:00 CSF Seg Neutrophils 21.4 % (0-6) 09/19/18 15:00 CSF Lymphocytes % 71.4 % (40-80) 09/19/18 15:00 CSF Reactive Lymphs 0 % 09/19/18 15:00 CSF Monocytes % 7.1 % (15-45) 09/19/18 15:00 CSF Eosinophils % 0 % 09/19/18 15:00 CSF Basophils 0 % 09/19/18 15:00 CSF Pathologist Review C 09/19/18 15:00 CSF Glucose 32 mg/dL 09/19/18 15:00 CSF Total Protein 123 mg/dL 09/19/18 15:00 CSF VDRL Reactive 1:8 (Nonreactive) H 09/15/18 Unknown Urine Opiates Screen Presumptive negative 09/17/18 15:52 Urine Methadone Screen Presumptive negative 09/17/18 15:52 Ur Barbiturates Screen Presumptive negative 09/17/18 15:52 Ur Phencyclidine Scrn Presumptive negative 09/17/18 15:52 Ur Amphetamines Screen Presumptive negative 09/17/18 15:52 U Benzodiazepines Scrn Presumptive negative 09/17/18 15:52 Urine Cocaine Screen Presumptive negative 09/17/18 15:52 U Marijuana (THC) Screen Presumptive negative 09/17/18 15:52 Drugs of Abuse Note Disclamer 09/17/18 15:52 Lymph Enumerat CD4/CD8 0.01 (0.86-5.00) L 09/13/18 12:29 % CD3 Cells 71 % (57-85) 09/13/18 12:29 Absolute CD3 Count 220 cells/uL (840-3060) L 09/13/18 12:29 % CD4 Cells 1 % (30-61) L 09/13/18 12:29 Absolute CD4 Count 4 cells/uL (490-1740) L 09/13/18 12:29 % CD8 Cells 70 % (12-42) H 09/13/18 12:29 Absolute CD8 Count 216 cells/uL (180-1170) 09/13/18 12:29 % CD19 Cells 17 % (6-29) 09/13/18 12:29 Absolute CD19 Count 54 cells/uL (110-660) L 09/13/18 12:29 RPR Titer 1:16 09/13/18 12:29 RPR Reactive (Nonreactive) 09/13/18 12:29 T.pallidum Ab (FTA-ABS) Reactive (Nonreactive) H 09/14/18 16:34 C. difficile Toxin A&B Negative (Negative) 09/12/18 05:30 CMV DNA PCR log type copyist/mL See scanned result 09/16/18 12:03 Hepatitis A IgM Ab Non-reactive (NonReactive) 09/13/18 12:29 Hep Bs Antigen Non-reactive (Negative) 09/13/18 12:29 Hep B Core IgM Ab Non-reactive (NonReactive) 09/13/18 12:29 Hepatitis C Antibody Non-reactive (NonReactive) 09/13/18 12:29 HIV-1 Antibody See scanned result 09/11/18 19:14 HIV-1 RNA PCR copies/ml 55842 Copies/mL H 09/13/18 12:29 HIV-1 RNA (PCR) log 4.71 Log cps/mL H 09/13/18 12:29 HIV-2 Ab (Immunoblot) See scanned result 09/11/18 19:14 HIV 1&2 Antibody Rapid Reactive (Non React) 09/11/18 19:14 HIV P24 Antigen Non react (Non React) 09/11/18 19:14 Influenza A (Rapid) Negative (Negative) 09/13/18 16:05 Influenza A (RT-PCR) Negative (Negative) 09/13/18 16:05 Influenza B (Rapid) Negative (Negative) 09/13/18 16:05 Influenza B (RT-PCR) Negative (Negative) 09/13/18 16:05 Toxoplasma IgG Ab <7.20 IU/mL (<7.20) 09/16/18 12:09 Miscellaneous Test see below 09/21/18 03:55 Nutrition/Malnutrition Assess - Dietary Evaluation Nutrition/Malnutrition Findings: Nutrition Notes Start: 09/12/18 17:45 Freq: Status: Active Protocol: Document 09/21/18 13:39 TW (Rec: 09/21/18 14:03 TW [id number]) Co-Sign 09/21/18 13:39 Nutrition Notes Initial or Follow up Reassessment Current Diagnosis Sepsis Other Pertinent Diagnosis Newly dx HIV, Bilat pneu Current Diet Osmolite 1.5 at 50mL/hr Labs/Tests K 6.5 Pertinent Medications Reviewed Height 6 ft Weight 103.2 kg [place] Body Weight (kg) 80.90 BMI 30.8 Subjective/Other Information F/U for TF start. Per RN, TF was held d/t pt coding and being intubated last night. Discussed with MD during rounds that pt will recieve trophic feedings of 10 mL until pt is stable. Burn Absent Trauma Absent #1 Nutrition Diagnosis Malnutrition Diagnosis Progress(for reassessment Continues documentation) Is patient on ventilator? Yes Is Patient Ambulatory and/or Out of Bed Yes REE-([place]-St. Jeor-ambulatory/OOB) [ 2619.500 [id number]] Kcal/Kg value to use for calculation 14 Approximate Energy Requirements Using 1445 kcal/Kg Calculation Used for Recommendations Kcal/kg Additional Notes Pro needs 162g/day (2g/kg IBW) Fluid needs 1ml/kcal Nutrition Intervention Change Diet Order: Continue TF Nutrition Support: Osmolite 1.5 at 60mL/hr with 175mL flush q4h Kcal 2,160 Protein (gm) 90 Fluid (mL) 1,097 Goal #1 TF to meet 75-100% of nutrient needs Anticipated Discharge Needs: Unable to determine at this time Follow-Up By: 09/23/18 Additional Comments f/u: necessity for TF formula SU langley tolerance
[2018-09-23] MEDS ORDERED: SODIUM BICARBONATE FEEDTUBE PRN (10:58)
[2018-09-23] MEDS ORDERED: SIMPLE SYRUP FEEDTUBE PRN ×2 (10:58)
[2018-09-23] MEDS ORDERED: PANCREAZE DR 10,500 UNIT FEEDTUBE PRN (10:58)
--- NOTE | 2018-09-23 11:41 | Progress Note ---
Assessment and Plan Cultures: 09/11/2018 blood culture: no growth 09/13/2018 serum cryptococcus ag neg 09/14/2018 CSF cryptococcus ag neg 09/14/2018 stool [place] 09/15/2018 stool +Giardia ag 09/19/2018 CSF cryptococcus ag neg A/P: 33 y/o male with no PMH; admitted on 09/11/2018 due to 4 days-AMS/behavioral changes, nausea, voimiting, diarrhea, weight loss and cough: 1) Septic shock: new fever and pressors requirements, etiology unclear. Will obtain blood cultures and expand antimicrobial coverage. 2) Disseminated CMV viremia: continue IV Ganciclovir, will increase dose today given improvement in renal function. Monitor for worsening leucopenia. Given issues with renal function, will hold off on addition of foscarnet. Discussed with sister. 3) Acute respiratory failure: likely multifactorial from multifocal pneumonia +/- volume overload. PJP DFA negative. Continue Atovaquone. 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 Of note, MRI did not show ventriculitis. Blood CMV DNA PCR = 1,058,978. CSF YAYO virus DNA PCR neg. 5) Neurosyphilis: CSF VDRL positive, was on Penicillin G, given decline in clinical condition, and to avoid double beta-lactam abx and increased seizure risk, will switch to high dose IV Ceftriaxone which does have activity against Treponema pallidum. 6) Diarrhea: likely due to Giardiasis as Giardia antigen positive in stool, in immunocompromised patient, on flagyl. 7) Oral candidiasis: better, on fluconazole. 8) RVR Afib: not controlled after adenosine, digoxin, on cardizem gtt. TTE EF>60. ? component of heart failure. Repeat CXT showed pulmonary edema. on amiodarone gtt 9) HIV/AIDS: newly diagnosed. Risk factor is MSM behavior. CD4=4. VL=50,700 10) Neutropenia/thrombocytopenia: possibly from HIV/CMV myelosuppression +/- sepsis. Can also get worse from ganciclovir. r/o disseminated MAC 11) New MAL: ? polypharmacy (bactrim) ? HIV ? CMV. improving. Nephrology following. Recs: - creatinine has improved, will increase dose of IV Ganciclovir to 5 mg/kg q12 hrs - given high fevers and septic shock, will obtain blood culture, fungal blood culture and started high dose IV Ceftriaxone 2 gm q12 hrs, IV Vancomycin - continue IV Flagyl - discontinued Levofloxacin and Penicillin G - continue atovaquone and azithromycin - continue fluconazole D10 Overall guarded prognosis. Discussed with sister at bedside. Will follow. Please call with questions. MD Luisana [facility] C: [phone] O: [phone] F: [phone] Subjective Date of service: 09/23/18 Principal diagnosis: Severe sepsis; Ac hypoxemic Resp failure; [place]. Pneumonia; Ac encephalopathy Interval history: Spiking fevers as high as 103F. Remains critically ill, on the ventilator. Now also requiring pressors. Discussed with sister at bedside, right ear swollen and with some drainage. Objective - Exam Narrative Exam: Physical Exam: Constitutional: intubated, on the event. Head, Ears, Nose: Normocephalic, atraumatic. right ear with swelling, drainage. Eyes: Conjunctivae/corneas clear. No icterus. No ptosis. Neck: Supple, no meningeal signs Oral: intubated Cardiovascular: S1, S2 normal. Respiratory: Good air entry, clear to auscultation bilaterally GI: Soft, non-tender; bowel sounds normal. No peritoneal signs Musculoskeletal: No pedal edema, no cyanosis. Skin: No rash or abscess Hem/Lymphatic: No palpable cervical or supraclavicular nodes. No lymphangitis Psych: no agitation Neurological: sedated, intubated - Constitutional Vitals: Vital Signs Temp Pulse Resp BP Pulse Ox 103.1 F H 91 H 29 H 121/61 98 09/23/18 08:00 09/23/18 09:00 09/23/18 09:00 09/23/18 09:00 09/23/18 09:00 Temperature -Last 24 Hours Temperature 103.1 F Temperature 102.3 F Temperature 99.7 F Temperature 98.9 F Temperature 98.9 F Temperature 98.5 F Temperature 98.7 F - Labs CBC & Chem 7: 09/23/18 08:10 09/23/18 08:10 Labs: Abnormal lab results 09/19/18 09/22/18 09/22/18 Range/Units 15:00 11:32 15:52 WBC (4.5-11.0) K/mm3 RBC (3.65-5.03) M/mm3 Hgb (11.8-15.2) gm/dl Hct (35.5-45.6) % Plt Count (140-440) K/mm3 Heparin Anti-Xa Level (0.3-0.7) U.I./ml POC ABG pCO2 48.7 H (35-45) POC ABG pO2 (80-105) Glucose (75-100) mg/dL POC Glucose 123 H (70-105) Calcium (8.4-10.2) mg/dL Miscellaneous Test Flexitest 1 H 09/22/18 09/22/18 09/23/18 Range/Units 18:18 23:52 04:10 WBC (4.5-11.0) K/mm3 RBC (3.65-5.03) M/mm3 Hgb (11.8-15.2) gm/dl Hct (35.5-45.6) % Plt Count (140-440) K/mm3 Heparin Anti-Xa Level (0.3-0.7) U.I./ml POC ABG pCO2 (35-45) POC ABG pO2 144 H (80-105) Glucose (75-100) mg/dL POC Glucose 110 H 124 H (70-105) Calcium (8.4-10.2) mg/dL Miscellaneous Test 09/23/18 09/23/18 09/23/18 Range/Units 05:55 05:55 08:10 WBC 1.3 L* (4.5-11.0) K/mm3 RBC 3.53 L (3.65-5.03) M/mm3 Hgb 10.0 L 9.9 L (11.8-15.2) gm/dl Hct 30.3 L 30.0 L (35.5-45.6) % Plt Count 117 L 119 L (140-440) K/mm3 Heparin Anti-Xa Level 0.26 L (0.3-0.7) U.I./ml POC ABG pCO2 (35-45) POC ABG pO2 (80-105) Glucose (75-100) mg/dL POC Glucose (70-105) Calcium (8.4-10.2) mg/dL Miscellaneous Test 09/23/18 Range/Units 08:10 WBC (4.5-11.0) K/mm3 RBC (3.65-5.03) M/mm3 Hgb (11.8-15.2) gm/dl Hct (35.5-45.6) % Plt Count (140-440) K/mm3 Heparin Anti-Xa Level (0.3-0.7) U.I./ml POC ABG pCO2 (35-45) POC ABG pO2 (80-105) Glucose 122 H (75-100) mg/dL POC Glucose (70-105) Calcium 6.9 L (8.4-10.2) mg/dL Miscellaneous Test
[2018-09-23] MEDS ORDERED: ROCEPHIN/NS 2 GM/100 ML 2 GM/100 ML BAG IV SCH (12:00)
[2018-09-23] MEDS ORDERED: VANCOMYCIN PHARMACY TO DOSE IV SCH (12:00)
[2018-09-23] MEDS ORDERED: DIPRIVAN 10 MG/ML 1,000 MG/100 ML BOTTLE IV ONE (12:18)
--- NOTE | 2018-09-23 12:54 | XRay Report ---
ROUTINE CHEST, TWO VIEWS: HISTORY: Endotracheal tube placement. The endotracheal tube terminates 3.4 cm superior to the narcisa. The remainder of the examination is unchanged since earlier today at 0115 hours. IMPRESSION: Adequate placement of the endotracheal tube.
[2018-09-23] MEDS: CORDARONE PO SCH ×2 (13:37→21:49)
[2018-09-23] MEDS: ROCEPHIN/NS 2 GM/100 ML 2 GM/100 ML BAG IV SCH ×2 (13:37→23:59)
[2018-09-23] MEDS: CYTOVENE 500 MG in NACL 0.9% 250ML 250 ML IV SCH (13:42)
[2018-09-23] MEDS ORDERED: DIPRIVAN 10 MG/ML 1,000 MG/100 ML BOTTLE IV SCH (14:00)
--- NOTE | 2018-09-23 14:01 | Progress Note ---
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) Elevated LFTs Neutropenia Thrombocytopenia - begin propofol for sedation and to sedate for ETT change out - ETT changed at bedside - continue to wean levophed for MAP > 65 mmHg - added Robinul 2 mg q8h for secretions - Anti-infectics changed anround due to sepsis picture; Gancyclovir dose adjusted also - continue supplemental oxygen to keep sats > 90% - continue bronchodilators with pulmonary Continue empiric and targeted anti- infective's per ID recs antibiotics per ID - continue set rate to 12/min - continue daily SBT's assessment - daily SAT's - IV amiodarone stopped - cardiology evaluation ongoing - diarrhea improved - continue fluconazole for candidiasis - watch for drug-drug interactions - continue enteral nutrition as tolerated - begin fentanyl drip for agitation and to help secure ETT (target RASS 0 to -1 - PT/OT/ROM exercises as tolerated - mobility protocol for pressure ulcer prophylaxis - continue GI & VTE prophylaxis - continue other care per attending / other consultants ....... care plan discussed at length with next-of-kin at bedside ...... re-evaluate in am & prn The high probability of a clinically significant, sudden or life threatening deterioration of the [cardiac, respiratory and neurologic] system(s) required my full and direct attention, intervention and personal management. The aggregate c ritical care time was [40] minutes. This time is in addition to time spent performing reported procedures but includes the following: [x] Data Review and interpretation [x] Patient assessment and monitoring of vital signs [x] Documentation [x] Medication orders and management Subjective Date of service: 09/23/18 Principal diagnosis: Severe sepsis; Ac hypoxemic Resp failure; [place]. Pneumonia; Ac encephalopathy Interval history: Patient is seen today for: Severe sepsis (present on admission with fever, tachycardia, hypotension and elevated lactate); Acute hypoxemic Respiratory failure; Bilateral pneumonia; Acute encephalopathy (Toxic / Metabolic); Atrial Fibrillation with RVR Seen and examined at bedside; 24hour events reviewed; nursing and respiratory ca re staff consulted; no adverse overnight events reported to me; agitated in bed; secretions copious; remains on levophed; AMS is persistent; ETT riding high on CXR and balloon is blown as he has been bitting ETT Objective Vital Signs - 12hr 09/23/18 09/23/18 09/23/18 02:00 02:31 02:58 Temperature Pulse Rate 97 H 97 H Pulse Rate [ 102 H Anterior Bilateral Throughout] Pulse Rate [ Bilateral] Respiratory 26 H 20 Rate Respiratory 22 Rate [Anterior Bilateral Throughout] Respiratory Rate [Bilateral ] Blood Pressure 126/66 118/57 O2 Sat by Pulse 100 100 Oximetry 09/23/18 09/23/18 09/23/18 03:01 03:31 03:48 Temperature 102.3 F H Pulse Rate 103 H 102 H Pulse Rate [ Anterior Bilateral Throughout] Pulse Rate [ Bilateral] Respiratory 18 21 Rate Respiratory Rate [Anterior Bilateral Throughout] Respiratory Rate [Bilateral ] Blood Pressure 115/67 115/67 O2 Sat by Pulse 100 100 Oximetry 09/23/18 09/23/18 09/23/18 04:01 04:10 04:31 Temperature Pulse Rate 102 H 101 H 91 H Pulse Rate [ Anterior Bilateral Throughout] Pulse Rate [ Bilateral] Respiratory 18 24 Rate Respiratory Rate [Anterior Bilateral Throughout] Respiratory Rate [Bilateral ] Blood Pressure 117/62 115/67 115/67 O2 Sat by Pulse 100 100 99 Oximetry 09/23/18 09/23/18 09/23/18 05:00 05:31 06:01 Temperature Pulse Rate 92 H 88 88 Pulse Rate [ Anterior Bilateral Throughout] Pulse Rate [ Bilateral] Respiratory 29 H 24 27 H Rate Respiratory Rate [Anterior Bilateral Throughout] Respiratory Rate [Bilateral ] Blood Pressure 119/54 117/62 115/49 O2 Sat by Pulse 98 98 99 Oximetry 09/23/18 09/23/18 09/23/18 06:07 06:31 07:01 Temperature Pulse Rate 93 H 112 H 101 H Pulse Rate [ Anterior Bilateral Throughout] Pulse Rate [ Bilateral] Respiratory 33 H 23 Rate Respiratory Rate [Anterior Bilateral Throughout] Respiratory Rate [Bilateral ] Blood Pressure 93/39 115/49 95/50 O2 Sat by Pulse 95 100 Oximetry 09/23/18 09/23/18 09/23/18 07:31 07:35 08:00 Temperature 103.1 F H Pulse Rate 100 H 96 H 99 H Pulse Rate [ 104 H Anterior Bilateral Throughout] Pulse Rate [ 100 H Bilateral] Respiratory 33 H 29 H Rate Respiratory 22 Rate [Anterior Bilateral Throughout] Respiratory 24 Rate [Bilateral ] Blood Pressure 115/49 93/39 104/53 O2 Sat by Pulse 97 100 97 Oximetry 09/23/18 09/23/18 09/23/18 08:31 09:00 12:51 Temperature Pulse Rate 102 H 91 H 91 H Pulse Rate [ Anterior Bilateral Throughout] Pulse Rate [ Bilateral] Respiratory 32 H 29 H Rate Respiratory Rate [Anterior Bilateral Throughout] Respiratory Rate [Bilateral ] Blood Pressure 104/53 121/61 121/61 O2 Sat by Pulse 97 98 98 Oximetry Constitutional: no acute distress, agitated, appears uncomfortable, other (youns AAM, normocephalic and atraumatic with mildly increased respiratory effort at rest) Eyes: non-icteric ENT: oropharynx moist, other (ETT 25 cm NIKA) Neck: supple, no lymphadenopathy, no JVD, other (no thyromegaly) Effort: mildly labored Ascultation: Bilateral: rales Percussion: Bilateral: not dull Cardiovascular: regular rate and rhythm Gastrointestinal: normoactive bowel sounds, soft, non-tender, non-distended Integumentary: rash (healed macular rash to extremities) Extremities: no cyanosis, no edema Neurologic: non-focal exam (grossly), pupils equal and round, other (unable to assess otherwise) Psychiatric: other (difficult to assess re: AMS / Delirium /encephalopathy) CBC and BMP: 09/23/18 08:10 09/23/18 08:10 ABG, PT/INR, D-dimer: ABG POC ABG pH 7.435 (7.35-7.45) 09/23/18 04:10 POC ABG pCO2 38.6 (35-45) 09/23/18 04:10 POC ABG pO2 144 (80-105) H 09/23/18 04:10 POC ABG HCO3 26.0 09/23/18 04:10 POC ABG Total CO2 27 09/23/18 04:10 POC ABG O2 Sat 99 09/23/18 04:10 PT/INR, D-dimer PT 19.9 Sec. (12.2-14.9) H 09/21/18 15:00 INR 1.65 (0.87-1.13) H 09/21/18 15:00 Abnormal lab findings: Abnormal Labs 09/11/18 09/11/18 09/11/18 18:00 18:00 18:00 WBC 1.9 L* RBC Hgb Hct Plt Count 130 L Monocytes % (Manual) 16.0 H Seg Neutrophils # Man 0.9 L Abs Lymphs (Manual) Lymphocytes # (Manual) 0.5 L PT INR APTT Heparin Anti-Xa Level POC ABG pH POC ABG pCO2 POC ABG pO2 Sodium 131 L Potassium Chloride Carbon Dioxide 17 L BUN 21 H Creatinine Glucose 126 H POC Glucose Lactic Acid 2.60 H* Calcium 8.1 L AST 123 H ALT 115 H Total Creatine Kinase Total Protein Albumin 3.0 L Vitamin B12 TSH Free T4 CSF VDRL Lymph Enumerat CD4/CD8 Absolute CD3 Count % CD4 Cells Absolute CD4 Count % CD8 Cells Absolute CD19 Count T.pallidum Ab (FTA-ABS) HIV-1 RNA PCR copies/ml HIV-1 RNA (PCR) log Miscellaneous Test 09/11/18 09/13/18 09/13/18 19:01 04:28 07:31 WBC 2.0 L RBC Hgb Hct Plt Count 116 L Monocytes % (Manual) 8.0 H Seg Neutrophils # Man 1.0 L Abs Lymphs (Manual) Lymphocytes # (Manual) 0.5 L PT INR APTT Heparin Anti-Xa Level POC ABG pH POC ABG pCO2 POC ABG pO2 Sodium Potassium Chloride 110.4 H Carbon Dioxide 19 L BUN Creatinine Glucose POC Glucose Lactic Acid 3.70 H* Calcium 7.9 L AST ALT Total Creatine Kinase Total Protein Albumin Vitamin B12 TSH Free T4 CSF VDRL Lymph Enumerat CD4/CD8 Absolute CD3 Count % CD4 Cells Absolute CD4 Count % CD8 Cells Absolute CD19 Count T.pallidum Ab (FTA-ABS) HIV-1 RNA PCR copies/ml HIV-1 RNA (PCR) log Miscellaneous Test 09/13/18 09/13/18 09/13/18 07:31 12:29 12:29 WBC RBC Hgb Hct Plt Count Monocytes % (Manual) Seg Neutrophils # Man Abs Lymphs (Manual) 309 L Lymphocytes # (Manual) PT INR APTT Heparin Anti-Xa Level POC ABG pH POC ABG pCO2 POC ABG pO2 Sodium Potassium Chloride Carbon Dioxide BUN Creatinine Glucose POC Glucose Lactic Acid Calcium AST 70 H ALT 68 H Total Creatine Kinase Total Protein Albumin 2.5 L Vitamin B12 TSH Free T4 CSF VDRL Lymph Enumerat CD4/CD8 0.01 L Absolute CD3 Count 220 L % CD4 Cells 1 L Absolute CD4 Count 4 L % CD8 Cells 70 H Absolute CD19 Count 54 L T.pallidum Ab (FTA-ABS) HIV-1 RNA PCR copies/ml 11686 H HIV-1 RNA (PCR) log 4.71 H Miscellaneous Test 09/14/18 09/14/18 09/15/18 07:17 16:34 05:05 WBC 1.6 L* RBC Hgb 10.4 L Hct 31.1 L D Plt Count 113 L Monocytes % (Manual) Seg Neutrophils # Man Abs Lymphs (Manual) Lymphocytes # (Manual) PT INR APTT Heparin Anti-Xa Level POC ABG pH POC ABG pCO2 POC ABG pO2 Sodium Potassium 3.4 L Chloride Carbon Dioxide 18 L BUN Creatinine Glucose 104 H POC Glucose Lactic Acid Calcium 7.6 L AST 49 H ALT Total Creatine Kinase Total Protein Albumin 2.5 L Vitamin B12 TSH Free T4 CSF VDRL Lymph Enumerat CD4/CD8 Absolute CD3 Count % CD4 Cells Absolute CD4 Count % CD8 Cells Absolute CD19 Count T.pallidum Ab (FTA-ABS) Reactive H HIV-1 RNA PCR copies/ml HIV-1 RNA (PCR) log Miscellaneous Test 09/15/18 09/15/18 09/16/18 05:05 Unknown 06:55 WBC 2.8 L RBC Hgb 10.9 L Hct 33.5 L Plt Count 135 L Monocytes % (Manual) Seg Neutrophils # Man Abs Lymphs (Manual) Lymphocytes # (Manual) PT INR APTT Heparin Anti-Xa Level POC ABG pH POC ABG pCO2 POC ABG pO2 Sodium Potassium Chloride 107.9 H Carbon Dioxide 18 L BUN 6 L Creatinine Glucose POC Glucose Lactic Acid Calcium 7.4 L AST ALT Total Creatine Kinase Total Protein Albumin Vitamin B12 TSH Free T4 CSF VDRL Reactive 1:8 H Lymph Enumerat CD4/CD8 Absolute CD3 Count % CD4 Cells Absolute CD4 Count % CD8 Cells Absolute CD19 Count T.pallidum Ab (FTA-ABS) HIV-1 RNA PCR copies/ml HIV-1 RNA (PCR) log Miscellaneous Test 09/16/18 09/16/18 09/16/18 11:41 11:41 11:41 WBC RBC Hgb Hct Plt Count Monocytes % (Manual) Seg Neutrophils # Man Abs Lymphs (Manual) Lymphocytes # (Manual) PT INR APTT Heparin Anti-Xa Level POC ABG pH POC ABG pCO2 POC ABG pO2 Sodium Potassium Chloride Carbon Dioxide BUN Creatinine Glucose POC Glucose Lactic Acid Calcium AST ALT Total Creatine Kinase Total Protein Albumin Vitamin B12 934.5 H TSH 4.210 H Free T4 0.72 L CSF VDRL Lymph Enumerat CD4/CD8 Absolute CD3 Count % CD4 Cells Absolute CD4 Count % CD8 Cells Absolute CD19 Count T.pallidum Ab (FTA-ABS) HIV-1 RNA PCR copies/ml HIV-1 RNA (PCR) log Miscellaneous Test 09/16/18 09/17/18 09/17/18 15:43 05:13 05:13 WBC 2.0 L RBC Hgb 10.9 L Hct 32.7 L Plt Count Monocytes % (Manual) Seg Neutrophils # Man Abs Lymphs (Manual) Lymphocytes # (Manual) PT INR APTT Heparin Anti-Xa Level POC ABG pH POC ABG pCO2 29.3 L POC ABG pO2 70 L Sodium Potassium Chloride 107.2 H Carbon Dioxide 21 L BUN 3 L Creatinine 0.7 L Glucose POC Glucose Lactic Acid Calcium 7.9 L AST ALT Total Creatine Kinase Total Protein 6.1 L Albumin 2.6 L Vitamin B12 TSH Free T4 CSF VDRL Lymph Enumerat CD4/CD8 Absolute CD3 Count % CD4 Cells Absolute CD4 Count % CD8 Cells Absolute CD19 Count T.pallidum Ab (FTA-ABS) HIV-1 RNA PCR copies/ml HIV-1 RNA (PCR) log Miscellaneous Test 09/17/18 09/18/18 09/18/18 21:57 12:46 12:46 WBC RBC Hgb Hct Plt Count Monocytes % (Manual) Seg Neutrophils # Man Abs Lymphs (Manual) Lymphocytes # (Manual) PT INR APTT Heparin Anti-Xa Level POC ABG pH POC ABG pCO2 POC ABG pO2 Sodium Potassium Chloride Carbon Dioxide BUN Creatinine Glucose POC Glucose 108 H Lactic Acid Calcium AST ALT Total Creatine Kinase Total Protein Albumin Vitamin B12 TSH 5.190 H Free T4 0.75 L CSF VDRL Lymph Enumerat CD4/CD8 Absolute CD3 Count % CD4 Cells Absolute CD4 Count % CD8 Cells Absolute CD19 Count T.pallidum Ab (FTA-ABS) HIV-1 RNA PCR copies/ml HIV-1 RNA (PCR) log Miscellaneous Test 09/19/18 09/19/18 09/19/18 04:57 04:57 15:00 WBC 2.1 L RBC Hgb 11.4 L Hct 34.2 L Plt Count Monocytes % (Manual) Seg Neutrophils # Man Abs Lymphs (Manual) Lymphocytes # (Manual) PT INR APTT Heparin Anti-Xa Level POC ABG pH POC ABG pCO2 POC ABG pO2 Sodium Potassium Chloride Carbon Dioxide 19 L BUN 6 L Creatinine Glucose POC Glucose Lactic Acid Calcium 7.9 L AST ALT Total Creatine Kinase Total Protein Albumin Vitamin B12 TSH Free T4 CSF VDRL Lymph Enumerat CD4/CD8 Absolute CD3 Count % CD4 Cells Absolute CD4 Count % CD8 Cells Absolute CD19 Count T.pallidum Ab (FTA-ABS) HIV-1 RNA PCR copies/ml HIV-1 RNA (PCR) log Miscellaneous Test Flexitest 1 H 09/20/18 09/20/18 09/21/18 05:33 06:52 01:06 WBC 2.5 L RBC Hgb Hct Plt Count Monocytes % (Manual) Seg Neutrophils # Man Abs Lymphs (Manual) Lymphocytes # (Manual) PT INR APTT Heparin Anti-Xa Level POC ABG pH POC ABG pCO2 32.9 L POC ABG pO2 62 L Sodium 136 L Potassium Chloride Carbon Dioxide 19 L BUN 7 L Creatinine Glucose POC Glucose Lactic Acid Calcium AST ALT Total Creatine Kinase Total Protein Albumin Vitamin B12 TSH Free T4 CSF VDRL Lymph Enumerat CD4/CD8 Absolute CD3 Count % CD4 Cells Absolute CD4 Count % CD8 Cells Absolute CD19 Count T.pallidum Ab (FTA-ABS) HIV-1 RNA PCR copies/ml HIV-1 RNA (PCR) log Miscellaneous Test 09/21/18 09/21/18 09/21/18 03:49 04:15 04:15 WBC 3.1 L RBC Hgb 11.6 L Hct Plt Count Monocytes % (Manual) 12.0 H Seg Neutrophils # Man 1.6 L Abs Lymphs (Manual) Lymphocytes # (Manual) 0.5 L PT INR APTT Heparin Anti-Xa Level POC ABG pH 7.159 L POC ABG pCO2 70.0 H POC ABG pO2 254 H Sodium Potassium 6.1 H* D Chloride Carbon Dioxide 19 L BUN Creatinine Glucose 108 H POC Glucose Lactic Acid Calcium AST ALT Total Creatine Kinase Total Protein Albumin Vitamin B12 TSH Free T4 CSF VDRL Lymph Enumerat CD4/CD8 Absolute CD3 Count % CD4 Cells Absolute CD4 Count % CD8 Cells Absolute CD19 Count T.pallidum Ab (FTA-ABS) HIV-1 RNA PCR copies/ml HIV-1 RNA (PCR) log Miscellaneous Test 09/21/18 09/21/18 09/21/18 04:25 09:59 10:07 WBC RBC Hgb Hct Plt Count Monocytes % (Manual) Seg Neutrophils # Man Abs Lymphs (Manual) Lymphocytes # (Manual) PT INR APTT Heparin Anti-Xa Level POC ABG pH 7.301 L POC ABG pCO2 POC ABG pO2 109 H Sodium Potassium 6.5 H* Chloride Carbon Dioxide 18 L BUN Creatinine 2.1 H D Glucose POC Glucose Lactic Acid Calcium 8.1 L AST 94 H ALT Total Creatine Kinase 685 H Total Protein Albumin 2.8 L Vitamin B12 TSH Free T4 CSF VDRL Lymph Enumerat CD4/CD8 Absolute CD3 Count % CD4 Cells Absolute CD4 Count % CD8 Cells Absolute CD19 Count T.pallidum Ab (FTA-ABS) HIV-1 RNA PCR copies/ml HIV-1 RNA (PCR) log Miscellaneous Test 09/21/18 09/21/18 09/21/18 11:00 15:00 21:54 WBC RBC Hgb 11.7 L Hct Plt Count Monocytes % (Manual) Seg Neutrophils # Man Abs Lymphs (Manual) Lymphocytes # (Manual) PT 19.9 H INR 1.65 H APTT 40.9 H Heparin Anti-Xa Level 0.98 H POC ABG pH POC ABG pCO2 POC ABG pO2 Sodium Potassium Chloride Carbon Dioxide BUN Creatinine Glucose POC Glucose Lactic Acid Calcium AST ALT Total Creatine Kinase Total Protein Albumin Vitamin B12 TSH Free T4 CSF VDRL Lymph Enumerat CD4/CD8 Absolute CD3 Count % CD4 Cells Absolute CD4 Count % CD8 Cells Absolute CD19 Count T.pallidum Ab (FTA-ABS) HIV-1 RNA PCR copies/ml HIV-1 RNA (PCR) log Miscellaneous Test 09/21/18 09/21/18 09/22/18 21:54 22:57 03:01 WBC RBC Hgb Hct Plt Count Monocytes % (Manual) Seg Neutrophils # Man Abs Lymphs (Manual) Lymphocytes # (Manual) PT INR APTT Heparin Anti-Xa Level POC ABG pH POC ABG pCO2 32.7 L POC ABG pO2 Sodium Potassium 5.2 H Chloride Carbon Dioxide BUN Creatinine Glucose POC Glucose 124 H Lactic Acid Calcium AST ALT Total Creatine Kinase Total Protein Albumin Vitamin B12 TSH Free T4 CSF VDRL Lymph Enumerat CD4/CD8 Absolute CD3 Count % CD4 Cells Absolute CD4 Count % CD8 Cells Absolute CD19 Count T.pallidum Ab (FTA-ABS) HIV-1 RNA PCR copies/ml HIV-1 RNA (PCR) log Miscellaneous Test 09/22/18 09/22/18 09/22/18 05:27 07:00 07:00 WBC 1.8 L* RBC 3.59 L Hgb 10.1 L Hct 30.8 L Plt Count 126 L Monocytes % (Manual) Seg Neutrophils # Man Abs Lymphs (Manual) Lymphocytes # (Manual) PT INR APTT Heparin Anti-Xa Level POC ABG pH POC ABG pCO2 POC ABG pO2 Sodium Potassium Chloride Carbon Dioxide BUN 27 H Creatinine 2.0 H Glucose 128 H POC Glucose 128 H Lactic Acid Calcium 6.9 L AST ALT Total Creatine Kinase Total Protein Albumin Vitamin B12 TSH Free T4 CSF VDRL Lymph Enumerat CD4/CD8 Absolute CD3 Count % CD4 Cells Absolute CD4 Count % CD8 Cells Absolute CD19 Count T.pallidum Ab (FTA-ABS) HIV-1 RNA PCR copies/ml HIV-1 RNA (PCR) log Miscellaneous Test 09/22/18 09/22/18 09/22/18 11:32 15:52 18:18 WBC RBC Hgb Hct Plt Count Monocytes % (Manual) Seg Neutrophils # Man Abs Lymphs (Manual) Lymphocytes # (Manual) PT INR APTT Heparin Anti-Xa Level POC ABG pH POC ABG pCO2 48.7 H POC ABG pO2 Sodium Potassium Chloride Carbon Dioxide BUN Creatinine Glucose POC Glucose 123 H 110 H Lactic Acid Calcium AST ALT Total Creatine Kinase Total Protein Albumin Vitamin B12 TSH Free T4 CSF VDRL Lymph Enumerat CD4/CD8 Absolute CD3 Count % CD4 Cells Absolute CD4 Count % CD8 Cells Absolute CD19 Count T.pallidum Ab (FTA-ABS) HIV-1 RNA PCR copies/ml HIV-1 RNA (PCR) log Miscellaneous Test 09/22/18 09/23/18 09/23/18 23:52 04:10 05:55 WBC RBC Hgb 10.0 L Hct 30.3 L Plt Count 117 L Monocytes % (Manual) Seg Neutrophils # Man Abs Lymphs (Manual) Lymphocytes # (Manual) PT INR APTT Heparin Anti-Xa Level POC ABG pH POC ABG pCO2 POC ABG pO2 144 H Sodium Potassium Chloride Carbon Dioxide BUN Creatinine Glucose POC Glucose 124 H Lactic Acid Calcium AST ALT Total Creatine Kinase Total Protein Albumin Vitamin B12 TSH Free T4 CSF VDRL Lymph Enumerat CD4/CD8 Absolute CD3 Count % CD4 Cells Absolute CD4 Count % CD8 Cells Absolute CD19 Count T.pallidum Ab (FTA-ABS) HIV-1 RNA PCR copies/ml HIV-1 RNA (PCR) log Miscellaneous Test 09/23/18 09/23/18 09/23/18 05:55 08:10 08:10 WBC 1.3 L* RBC 3.53 L Hgb 9.9 L Hct 30.0 L Plt Count 119 L Monocytes % (Manual) Seg Neutrophils # Man Abs Lymphs (Manual) Lymphocytes # (Manual) PT INR APTT Heparin Anti-Xa Level 0.26 L POC ABG pH POC ABG pCO2 POC ABG pO2 Sodium Potassium Chloride Carbon Dioxide BUN Creatinine Glucose 122 H POC Glucose Lactic Acid Calcium 6.9 L AST ALT Total Creatine Kinase Total Protein Albumin Vitamin B12 TSH Free T4 CSF VDRL Lymph Enumerat CD4/CD8 Absolute CD3 Count % CD4 Cells Absolute CD4 Count % CD8 Cells Absolute CD19 Count T.pallidum Ab (FTA-ABS) HIV-1 RNA PCR copies/ml HIV-1 RNA (PCR) log Miscellaneous Test Allied health notes reviewed: nursing
[2018-09-23] MEDS: ROBINUL PO SCH ×2 (14:53→21:48)
[2018-09-23] MEDS ORDERED: VANCOMYCIN 2,000 MG in NACL 0.9% 500 ML 500 ML IV ONE (15:00)
[2018-09-24] MEDS: PROVENTIL IH SCH ×4 (01:58→19:13)
--- NOTE | 2018-09-24 02:30 | XRay Report ---
FINAL REPORT PROCEDURE: XR CHEST 1V AP TECHNIQUE: Chest radiograph anteroposterior view. CPT 42987 HISTORY: follow up respiratory failure COMPARISON: 09/23/2018 FINDINGS: Heart: Normal. Mediastinum/Vessels: Normal. Lungs/Pleural space: Normal. Bony thorax: No acute osseous abnormality. Life support devices: Endotracheal tube is the mid trachea. NG tube is in the stomach. There is a rig ht-sided PICC line. The tip is in the superior vena cava.. IMPRESSION: No acute cardiopulmonary abnormality.
[2018-09-24] MEDS: HEPARIN/ 0.45% NACL-25,000 UNIT/500 ML 25,000 UNIT/500 ML BAG IV SCH ×2 (02:47→21:30)
[2018-09-24] MEDS: LOPRESSOR IV SCH ×4 (03:00→21:19)
[2018-09-24] MEDS: CYTOVENE 500 MG in NACL 0.9% 250ML 250 ML IV SCH ×2 (03:05→13:21)
[2018-09-24] MEDS: VANCOMYCIN 1,500 MG in NACL 0.9% 500 ML 500 ML IV SCH ×2 (05:19→15:07)
[2018-09-24] MEDS: FLAGYL PO SCH ×3 (05:29→21:30)
[2018-09-24] MEDS: SYNTHROID PO SCH (05:29)
[2018-09-24] MEDS: ROBINUL PO SCH ×3 (05:59→21:28)
--- NOTE | 2018-09-24 06:32 | Progress Note ---
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 He did not use condom consistently. - CD4=4 - VL=50,700 Elevated LFTs: resolved Neutropenia/thrombocytopenia -VAP bundle addressed -Lung protective strategies -Antimicrobials per ID -give a dose of furosemide and monitor response, hemodynamics, renal function and electrolyte profile - continue supplemental oxygen to keep sats > 90% - continue bronchodilators with pulmonary - continue daily SBT's assessment - daily SAT's - monitor for drug-drug interactions - continue enteral nutrition as tolerated - fentanyl infusion for agitation and to help secure ETT (target RASS 0 to -1 - PT/OT/ROM exercises as tolerated - mobility protocol for pressure ulcer prophylaxis - continue GI & VTE prophylaxis( on therapeutic heparin per Cardiology) - continue other care per attending / other consultants The high probability of a clinically significant, sudden or life threatening deterioration of the [cardiac, respiratory and neurologic] system(s) required my full and direct attention, intervention and personal management. The aggregate critical care time was [40] minutes. This time is in addition to time spent performing reported procedures but includes the following: [x] Data Review and interpretation [x] Patient assessment and monitoring of vital signs [x] Documentation Subjective Date of service: 09/24/18 Principal diagnosis: Severe sepsis; Ac hypoxemic Resp failure; [place]. Pneumonia; Ac encephalopathy Interval history: 33 y/o male with no PMH; admitted on 09/11/2018 due to 4 days-AMS/behavioral changes, nausea, voimiting, diarrhea, weight loss and cough: Objective Vital Signs - 12hr 09/23/18 09/23/18 09/23/18 19:00 19:30 19:34 Temperature 100.1 F H Pulse Rate 98 H 101 H Pulse Rate [ From Monitor] Pulse Rate [ Throughout] Respiratory 27 H 22 Rate Respiratory Rate [ Throughout] Blood Pressure 105/56 102/57 O2 Sat by Pulse 100 100 Oximetry 09/23/18 09/23/18 09/23/18 19:39 19:43 19:52 Temperature Pulse Rate 100 H Pulse Rate [ From Monitor] Pulse Rate [ 101 H Throughout] Respiratory Rate Respiratory 18 Rate [ Throughout] Blood Pressure 111/58 O2 Sat by Pulse 100 100 Oximetry 09/23/18 09/23/18 09/23/18 19:53 20:00 20:30 Temperature Pulse Rate 101 H 103 H Pulse Rate [ 116 H From Monitor] Pulse Rate [ 98 H Throughout] Respiratory 18 27 H Rate Respiratory 18 Rate [ Throughout] Blood Pressure 111/58 121/67 O2 Sat by Pulse 100 100 Oximetry 09/23/18 09/23/18 09/23/18 21:00 21:02 21:30 Temperature Pulse Rate 101 H 101 H 103 H Pulse Rate [ From Monitor] Pulse Rate [ Throughout] Respiratory 29 H 20 Rate Respiratory Rate [ Throughout] Blood Pressure 96/31 96/31 114/59 O2 Sat by Pulse 100 100 Oximetry 09/23/18 09/23/18 09/23/18 22:00 22:30 22:40 Temperature Pulse Rate 101 H 101 H 102 H Pulse Rate [ From Monitor] Pulse Rate [ Throughout] Respiratory 24 26 H 24 Rate Respiratory Rate [ Throughout] Blood Pressure 106/77 104/50 104/50 O2 Sat by Pulse 100 100 100 Oximetry 09/23/18 09/23/18 09/23/18 23:00 23:18 23:30 Temperature 98.2 F Pulse Rate 103 H 99 H Pulse Rate [ From Monitor] Pulse Rate [ Throughout] Respiratory 15 22 Rate Respiratory Rate [ Throughout] Blood Pressure 104/38 104/38 O2 Sat by Pulse 100 100 Oximetry 09/24/18 09/24/18 09/24/18 00:00 00:05 00:30 Temperature Pulse Rate 104 H 106 H Pulse Rate [ 101 H From Monitor] Pulse Rate [ Throughout] Respiratory 23 20 25 H Rate Respiratory Rate [ Throughout] Blood Pressure 94/42 120/60 O2 Sat by Pulse 100 100 Oximetry 09/24/18 09/24/18 09/24/18 01:00 01:30 01:58 Temperature Pulse Rate 105 H 99 H Pulse Rate [ From Monitor] Pulse Rate [ 97 H Throughout] Respiratory 29 H 12 Rate Respiratory 18 Rate [ Throughout] Blood Pressure 108/58 107/56 O2 Sat by Pulse 100 100 Oximetry 09/24/18 09/24/18 09/24/18 02:00 02:08 02:30 Temperature Pulse Rate 101 H 97 H Pulse Rate [ From Monitor] Pulse Rate [ 100 H Throughout] Respiratory 20 23 Rate Respiratory 18 Rate [ Throughout] Blood Pressure 137/63 137/63 O2 Sat by Pulse 100 100 Oximetry 09/24/18 09/24/18 09/24/18 03:00 03:10 03:30 Temperature 98.9 F Pulse Rate 94 H 98 H Pulse Rate [ From Monitor] Pulse Rate [ Throughout] Respiratory 23 22 Rate Respiratory Rate [ Throughout] Blood Pressure 124/60 139/42 O2 Sat by Pulse 100 100 Oximetry 09/24/18 09/24/18 09/24/18 04:00 04:16 04:30 Temperature Pulse Rate 94 H 98 H Pulse Rate [ 94 H From Monitor] Pulse Rate [ Throughout] Respiratory 21 22 22 Rate Respiratory Rate [ Throughout] Blood Pressure 124/37 117/37 O2 Sat by Pulse 100 100 Oximetry 09/24/18 09/24/18 04:49 05:00 Temperature Pulse Rate 95 H 97 H Pulse Rate [ From Monitor] Pulse Rate [ Throughout] Respiratory 28 H Rate Respiratory Rate [ Throughout] Blood Pressure 108/66 108/66 O2 Sat by Pulse 100 100 Oximetry Constitutional: no acute distress, agitated, appears uncomfortable, other (youns AAM, normocephalic and atraumatic with mildly increased respiratory effort at rest) Eyes: non-icteric ENT: oropharynx moist, other (ETT 25 cm NIKA) Neck: supple, no lymphadenopathy, no JVD, other (no thyromegaly) Effort: mildly labored Ascultation: Bilateral: rales, rhonchi Percussion: Bilateral: not dull Cardiovascular: regular rate and rhythm Gastrointestinal: normoactive bowel sounds, soft, non-tender, non-distended Integumentary: rash (healed macular rash to extremities) Extremities: no cyanosis, no edema Neurologic: non-focal exam (grossly), pupils equal and round, other (unable to assess otherwise) Psychiatric: other (difficult to assess re: AMS / Delirium /encephalopathy) CBC and BMP: 09/26/18 06:15 09/26/18 06:15 ABG, PT/INR, D-dimer: ABG POC ABG pH 7.401 (7.35-7.45) 02/09/19 06:19 POC ABG pCO2 39.1 (35-45) 09/24/18 06:19 POC ABG pO2 86 (80-105) 09/24/18 06:19 POC ABG HCO3 24.2 09/24/18 06:19 POC ABG Total CO2 25 09/24/18 06:19 POC ABG O2 Sat 97 09/24/18 06:19 PT/INR, D-dimer PT 19.9 Sec. (12.2-14.9) H 09/21/18 15:00 INR 1.65 (0.87-1.13) H 09/21/18 15:00 Abnormal lab findings: Abnormal Labs 09/11/18 09/11/18 09/11/18 18:00 18:00 18:00 WBC 1.9 L* RBC Hgb Hct Plt Count 130 L Monocytes % (Manual) 16.0 H Seg Neutrophils # Man 0.9 L Abs Lymphs (Manual) Lymphocytes # (Manual) 0.5 L PT INR APTT Heparin Anti-Xa Level POC ABG pH POC ABG pCO2 POC ABG pO2 Sodium 131 L Potassium Chloride Carbon Dioxide 17 L BUN 21 H Creatinine Glucose 126 H POC Glucose Lactic Acid 2.60 H* Calcium 8.1 L AST 123 H ALT 115 H Total Creatine Kinase Total Protein Albumin 3.0 L Vitamin B12 TSH Free T4 CSF VDRL Lymph Enumerat CD4/CD8 Absolute CD3 Count % CD4 Cells Absolute CD4 Count % CD8 Cells Absolute CD19 Count T.pallidum Ab (FTA-ABS) HIV-1 RNA PCR copies/ml HIV-1 RNA (PCR) log Miscellaneous Test 09/11/18 09/13/18 09/13/18 19:01 04:28 07:31 WBC 2.0 L RBC Hgb Hct Plt Count 116 L Monocytes % (Manual) 8.0 H Seg Neutrophils # Man 1.0 L Abs Lymphs (Manual) Lymphocytes # (Manual) 0.5 L PT INR APTT Heparin Anti-Xa Level POC ABG pH POC ABG pCO2 POC ABG pO2 Sodium Potassium Chloride 110.4 H Carbon Dioxide 19 L BUN Creatinine Glucose POC Glucose Lactic Acid 3.70 H* Calcium 7.9 L AST ALT Total Creatine Kinase Total Protein Albumin Vitamin B12 TSH Free T4 CSF VDRL Lymph Enumerat CD4/CD8 Absolute CD3 Count % CD4 Cells Absolute CD4 Count % CD8 Cells Absolute CD19 Count T.pallidum Ab (FTA-ABS) HIV-1 RNA PCR copies/ml HIV-1 RNA (PCR) log Miscellaneous Test 09/13/18 09/13/18 09/13/18 07:31 12:29 12:29 WBC RBC Hgb Hct Plt Count Monocytes % (Manual) Seg Neutrophils # Man Abs Lymphs (Manual) 309 L Lymphocytes # (Manual) PT INR APTT Heparin Anti-Xa Level POC ABG pH POC ABG pCO2 POC ABG pO2 Sodium Potassium Chloride Carbon Dioxide BUN Creatinine Glucose POC Glucose Lactic Acid Calcium AST 70 H ALT 68 H Total Creatine Kinase Total Protein Albumin 2.5 L Vitamin B12 TSH Free T4 CSF VDRL Lymph Enumerat CD4/CD8 0.01 L Absolute CD3 Count 220 L % CD4 Cells 1 L Absolute CD4 Count 4 L % CD8 Cells 70 H Absolute CD19 Count 54 L T.pallidum Ab (FTA-ABS) HIV-1 RNA PCR copies/ml 55183 H HIV-1 RNA (PCR) log 4.71 H Miscellaneous Test 09/14/18 09/14/18 09/15/18 07:17 16:34 05:05 WBC 1.6 L* RBC Hgb 10.4 L Hct 31.1 L D Plt Count 113 L Monocytes % (Manual) Seg Neutrophils # Man Abs Lymphs (Manual) Lymphocytes # (Manual) PT INR APTT Heparin Anti-Xa Level POC ABG pH POC ABG pCO2 POC ABG pO2 Sodium Potassium 3.4 L Chloride Carbon Dioxide 18 L BUN Creatinine Glucose 104 H POC Glucose Lactic Acid Calcium 7.6 L AST 49 H ALT Total Creatine Kinase Total Protein Albumin 2.5 L Vitamin B12 TSH Free T4 CSF VDRL Lymph Enumerat CD4/CD8 Absolute CD3 Count % CD4 Cells Absolute CD4 Count % CD8 Cells Absolute CD19 Count T.pallidum Ab (FTA-ABS) Reactive H HIV-1 RNA PCR copies/ml HIV-1 RNA (PCR) log Miscellaneous Test 09/15/18 09/15/18 09/16/18 05:05 Unknown 06:55 WBC 2.8 L RBC Hgb 10.9 L Hct 33.5 L Plt Count 135 L Monocytes % (Manual) Seg Neutrophils # Man Abs Lymphs (Manual) Lymphocytes # (Manual) PT INR APTT Heparin Anti-Xa Level POC ABG pH POC ABG pCO2 POC ABG pO2 Sodium Potassium Chloride 107.9 H Carbon Dioxide 18 L BUN 6 L Creatinine Glucose POC Glucose Lactic Acid Calcium 7.4 L AST ALT Total Creatine Kinase Total Protein Albumin Vitamin B12 TSH Free T4 CSF VDRL Reactive 1:8 H Lymph Enumerat CD4/CD8 Absolute CD3 Count % CD4 Cells Absolute CD4 Count % CD8 Cells Absolute CD19 Count T.pallidum Ab (FTA-ABS) HIV-1 RNA PCR copies/ml HIV-1 RNA (PCR) log Miscellaneous Test 09/16/18 09/16/18 09/16/18 11:41 11:41 11:41 WBC RBC Hgb Hct Plt Count Monocytes % (Manual) Seg Neutrophils # Man Abs Lymphs (Manual) Lymphocytes # (Manual) PT INR APTT Heparin Anti-Xa Level POC ABG pH POC ABG pCO2 POC ABG pO2 Sodium Potassium Chloride Carbon Dioxide BUN Creatinine Glucose POC Glucose Lactic Acid Calcium AST ALT Total Creatine Kinase Total Protein Albumin Vitamin B12 934.5 H TSH 4.210 H Free T4 0.72 L CSF VDRL Lymph Enumerat CD4/CD8 Absolute CD3 Count % CD4 Cells Absolute CD4 Count % CD8 Cells Absolute CD19 Count T.pallidum Ab (FTA-ABS) HIV-1 RNA PCR copies/ml HIV-1 RNA (PCR) log Miscellaneous Test 09/16/18 09/17/18 09/17/18 15:43 05:13 05:13 WBC 2.0 L RBC Hgb 10.9 L Hct 32.7 L Plt Count Monocytes % (Manual) Seg Neutrophils # Man Abs Lymphs (Manual) Lymphocytes # (Manual) PT INR APTT Heparin Anti-Xa Level POC ABG pH POC ABG pCO2 29.3 L POC ABG pO2 70 L Sodium Potassium Chloride 107.2 H Carbon Dioxide 21 L BUN 3 L Creatinine 0.7 L Glucose POC Glucose Lactic Acid Calcium 7.9 L AST ALT Total Creatine Kinase Total Protein 6.1 L Albumin 2.6 L Vitamin B12 TSH Free T4 CSF VDRL Lymph Enumerat CD4/CD8 Absolute CD3 Count % CD4 Cells Absolute CD4 Count % CD8 Cells Absolute CD19 Count T.pallidum Ab (FTA-ABS) HIV-1 RNA PCR copies/ml HIV-1 RNA (PCR) log Miscellaneous Test 09/17/18 09/18/18 09/18/18 21:57 12:46 12:46 WBC RBC Hgb Hct Plt Count Monocytes % (Manual) Seg Neutrophils # Man Abs Lymphs (Manual) Lymphocytes # (Manual) PT INR APTT Heparin Anti-Xa Level POC ABG pH POC ABG pCO2 POC ABG pO2 Sodium Potassium Chloride Carbon Dioxide BUN Creatinine Glucose POC Glucose 108 H Lactic Acid Calcium AST ALT Total Creatine Kinase Total Protein Albumin Vitamin B12 TSH 5.190 H Free T4 0.75 L CSF VDRL Lymph Enumerat CD4/CD8 Absolute CD3 Count % CD4 Cells Absolute CD4 Count % CD8 Cells Absolute CD19 Count T.pallidum Ab (FTA-ABS) HIV-1 RNA PCR copies/ml HIV-1 RNA (PCR) log Miscellaneous Test 09/19/18 09/19/18 09/19/18 04:57 04:57 15:00 WBC 2.1 L RBC Hgb 11.4 L Hct 34.2 L Plt Count Monocytes % (Manual) Seg Neutrophils # Man Abs Lymphs (Manual) Lymphocytes # (Manual) PT INR APTT Heparin Anti-Xa Level POC ABG pH POC ABG pCO2 POC ABG pO2 Sodium Potassium Chloride Carbon Dioxide 19 L BUN 6 L Creatinine Glucose POC Glucose Lactic Acid Calcium 7.9 L AST ALT Total Creatine Kinase Total Protein Albumin Vitamin B12 TSH Free T4 CSF VDRL Lymph Enumerat CD4/CD8 Absolute CD3 Count % CD4 Cells Absolute CD4 Count % CD8 Cells Absolute CD19 Count T.pallidum Ab (FTA-ABS) HIV-1 RNA PCR copies/ml HIV-1 RNA (PCR) log Miscellaneous Test Flexitest 1 H 09/19/18 09/20/18 09/20/18 15:00 05:33 06:52 WBC 2.5 L RBC Hgb Hct Plt Count Monocytes % (Manual) Seg Neutrophils # Man Abs Lymphs (Manual) Lymphocytes # (Manual) PT INR APTT Heparin Anti-Xa Level POC ABG pH POC ABG pCO2 POC ABG pO2 Sodium 136 L Potassium Chloride Carbon Dioxide 19 L BUN 7 L Creatinine Glucose POC Glucose Lactic Acid Calcium AST ALT Total Creatine Kinase Total Protein Albumin Vitamin B12 TSH Free T4 CSF VDRL Reactive 1:4 H Lymph Enumerat CD4/CD8 Absolute CD3 Count % CD4 Cells Absolute CD4 Count % CD8 Cells Absolute CD19 Count T.pallidum Ab (FTA-ABS) HIV-1 RNA PCR copies/ml HIV-1 RNA (PCR) log Miscellaneous Test 02/06/19 02/06/19 02/06/19 01:06 03:49 04:15 WBC 3.1 L RBC Hgb 11.6 L Hct Plt Count Monocytes % (Manual) 12.0 H Seg Neutrophils # Man 1.6 L Abs Lymphs (Manual) Lymphocytes # (Manual) 0.5 L PT INR APTT Heparin Anti-Xa Level POC ABG pH 7.159 L POC ABG pCO2 32.9 L 70.0 H POC ABG pO2 62 L 254 H Sodium Potassium Chloride Carbon Dioxide BUN Creatinine Glucose POC Glucose Lactic Acid Calcium AST ALT Total Creatine Kinase Total Protein Albumin Vitamin B12 TSH Free T4 CSF VDRL Lymph Enumerat CD4/CD8 Absolute CD3 Count % CD4 Cells Absolute CD4 Count % CD8 Cells Absolute CD19 Count T.pallidum Ab (FTA-ABS) HIV-1 RNA PCR copies/ml HIV-1 RNA (PCR) log Miscellaneous Test 09/21/18 09/21/18 09/21/18 04:15 04:25 09:59 WBC RBC Hgb Hct Plt Count Monocytes % (Manual) Seg Neutrophils # Man Abs Lymphs (Manual) Lymphocytes # (Manual) PT INR APTT Heparin Anti-Xa Level POC ABG pH 7.301 L POC ABG pCO2 POC ABG pO2 109 H Sodium Potassium 6.1 H* D Chloride Carbon Dioxide 19 L BUN Creatinine Glucose 108 H POC Glucose Lactic Acid Calcium AST ALT Total Creatine Kinase 685 H Total Protein Albumin Vitamin B12 TSH Free T4 CSF VDRL Lymph Enumerat CD4/CD8 Absolute CD3 Count % CD4 Cells Absolute CD4 Count % CD8 Cells Absolute CD19 Count T.pallidum Ab (FTA-ABS) HIV-1 RNA PCR copies/ml HIV-1 RNA (PCR) log Miscellaneous Test 09/21/18 09/21/18 09/21/18 10:07 11:00 15:00 WBC RBC Hgb 11.7 L Hct Plt Count Monocytes % (Manual) Seg Neutrophils # Man Abs Lymphs (Manual) Lymphocytes # (Manual) PT 19.9 H INR 1.65 H APTT 40.9 H Heparin Anti-Xa Level POC ABG pH POC ABG pCO2 POC ABG pO2 Sodium Potassium 6.5 H* Chloride Carbon Dioxide 18 L BUN Creatinine 2.1 H D Glucose POC Glucose Lactic Acid Calcium 8.1 L AST 94 H ALT Total Creatine Kinase Total Protein Albumin 2.8 L Vitamin B12 TSH Free T4 CSF VDRL Lymph Enumerat CD4/CD8 Absolute CD3 Count % CD4 Cells Absolute CD4 Count % CD8 Cells Absolute CD19 Count T.pallidum Ab (FTA-ABS) HIV-1 RNA PCR copies/ml HIV-1 RNA (PCR) log Miscellaneous Test 09/21/18 09/21/18 09/21/18 21:54 21:54 22:57 WBC RBC Hgb Hct Plt Count Monocytes % (Manual) Seg Neutrophils # Man Abs Lymphs (Manual) Lymphocytes # (Manual) PT INR APTT Heparin Anti-Xa Level 0.98 H POC ABG pH POC ABG pCO2 POC ABG pO2 Sodium Potassium 5.2 H Chloride Carbon Dioxide BUN Creatinine Glucose POC Glucose 124 H Lactic Acid Calcium AST ALT Total Creatine Kinase Total Protein Albumin Vitamin B12 TSH Free T4 CSF VDRL Lymph Enumerat CD4/CD8 Absolute CD3 Count % CD4 Cells Absolute CD4 Count % CD8 Cells Absolute CD19 Count T.pallidum Ab (FTA-ABS) HIV-1 RNA PCR copies/ml HIV-1 RNA (PCR) log Miscellaneous Test 09/22/18 09/22/18 09/22/18 03:01 05:27 07:00 WBC 1.8 L* RBC 3.59 L Hgb 10.1 L Hct 30.8 L Plt Count 126 L Monocytes % (Manual) Seg Neutrophils # Man Abs Lymphs (Manual) Lymphocytes # (Manual) PT INR APTT Heparin Anti-Xa Level POC ABG pH POC ABG pCO2 32.7 L POC ABG pO2 Sodium Potassium Chloride Carbon Dioxide BUN Creatinine Glucose POC Glucose 128 H Lactic Acid Calcium AST ALT Total Creatine Kinase Total Protein Albumin Vitamin B12 TSH Free T4 CSF VDRL Lymph Enumerat CD4/CD8 Absolute CD3 Count % CD4 Cells Absolute CD4 Count % CD8 Cells Absolute CD19 Count T.pallidum Ab (FTA-ABS) HIV-1 RNA PCR copies/ml HIV-1 RNA (PCR) log Miscellaneous Test 09/22/18 09/22/18 09/22/18 07:00 11:32 15:52 WBC RBC Hgb Hct Plt Count Monocytes % (Manual) Seg Neutrophils # Man Abs Lymphs (Manual) Lymphocytes # (Manual) PT INR APTT Heparin Anti-Xa Level POC ABG pH POC ABG pCO2 48.7 H POC ABG pO2 Sodium Potassium Chloride Carbon Dioxide BUN 27 H Creatinine 2.0 H Glucose 128 H POC Glucose 123 H Lactic Acid Calcium 6.9 L AST ALT Total Creatine Kinase Total Protein Albumin Vitamin B12 TSH Free T4 CSF VDRL Lymph Enumerat CD4/CD8 Absolute CD3 Count % CD4 Cells Absolute CD4 Count % CD8 Cells Absolute CD19 Count T.pallidum Ab (FTA-ABS) HIV-1 RNA PCR copies/ml HIV-1 RNA (PCR) log Miscellaneous Test 09/22/18 09/22/18 09/23/18 18:18 23:52 04:10 WBC RBC Hgb Hct Plt Count Monocytes % (Manual) Seg Neutrophils # Man Abs Lymphs (Manual) Lymphocytes # (Manual) PT INR APTT Heparin Anti-Xa Level POC ABG pH POC ABG pCO2 POC ABG pO2 144 H Sodium Potassium Chloride Carbon Dioxide BUN Creatinine Glucose POC Glucose 110 H 124 H Lactic Acid Calcium AST ALT Total Creatine Kinase Total Protein Albumin Vitamin B12 TSH Free T4 CSF VDRL Lymph Enumerat CD4/CD8 Absolute CD3 Count % CD4 Cells Absolute CD4 Count % CD8 Cells Absolute CD19 Count T.pallidum Ab (FTA-ABS) HIV-1 RNA PCR copies/ml HIV-1 RNA (PCR) log Miscellaneous Test 09/23/18 09/23/18 09/23/18 05:55 05:55 08:10 WBC 1.3 L* RBC 3.53 L Hgb 10.0 L 9.9 L Hct 30.3 L 30.0 L Plt Count 117 L 119 L Monocytes % (Manual) Seg Neutrophils # Man Abs Lymphs (Manual) Lymphocytes # (Manual) PT INR APTT Heparin Anti-Xa Level 0.26 L POC ABG pH POC ABG pCO2 POC ABG pO2 Sodium Potassium Chloride Carbon Dioxide BUN Creatinine Glucose POC Glucose Lactic Acid Calcium AST ALT Total Creatine Kinase Total Protein Albumin Vitamin B12 TSH Free T4 CSF VDRL Lymph Enumerat CD4/CD8 Absolute CD3 Count % CD4 Cells Absolute CD4 Count % CD8 Cells Absolute CD19 Count T.pallidum Ab (FTA-ABS) HIV-1 RNA PCR copies/ml HIV-1 RNA (PCR) log Miscellaneous Test 09/23/18 09/23/18 08:10 23:57 WBC RBC Hgb Hct Plt Count Monocytes % (Manual) Seg Neutrophils # Man Abs Lymphs (Manual) Lymphocytes # (Manual) PT INR APTT Heparin Anti-Xa Level POC ABG pH POC ABG pCO2 POC ABG pO2 Sodium Potassium Chloride Carbon Dioxide BUN Creatinine Glucose 122 H POC Glucose 115 H Lactic Acid Calcium 6.9 L AST ALT Total Creatine Kinase Total Protein Albumin Vitamin B12 TSH Free T4 CSF VDRL Lymph Enumerat CD4/CD8 Absolute CD3 Count % CD4 Cells Absolute CD4 Count % CD8 Cells Absolute CD19 Count T.pallidum Ab (FTA-ABS) HIV-1 RNA PCR copies/ml HIV-1 RNA (PCR) log Miscellaneous Test Allied health notes reviewed: nursing
[2018-09-24] MEDS ORDERED: LASIX IV NR (10:00)
--- NOTE | 2018-09-24 10:10 | Progress Note ---
Assessment and Plan - Patient Problems (1) Acute kidney failure with tubular necrosis Current Visit: Yes Status: Acute Plan to address problem: Acute tubular necrosis secondary to sepsis has improved. Concerned about worsening now on ganciclovir. Monitor closely. Need to keep well hydrated (2) Encephalopathy Current Visit: Yes Status: Acute Plan to address problem: Possibly related to neurosyphilis versus disseminated CMV. Continue treatment for both per the infectious disease. (3) Acute respiratory failure with hypoxia Current Visit: Yes Status: Chronic Plan to address problem: Continue ventilatory support per Pulmonary (4) AIDS Current Visit: Yes Status: Suspected Plan to address problem: Being managed by infectious disease (5) Pancytopenia Current Visit: Yes Status: Acute Plan to address problem: HIV-related versus disseminated CMV (6) Sepsis Current Visit: Yes Status: Acute Plan to address problem: Continue AB per ID Subjective Date of service: 09/24/18 Principal diagnosis: Severe sepsis; Ac hypoxemic Resp failure; [place]. Pneumonia; Ac encephalopathy Interval history: Patient seen lying in bed. Chart reviewed. Intubated and on ventilator. Objective - Exam Narrative Exam: Young -[place] male lying in bed intubated and on ventilatory HEENT: NCAT, entry care to be intact Neck: Supple, no venous distention CVS: S1S2 RRR with no murmur, rub or gallop Chest: Coarse breath sounds with faint rhonchi Abdomen: Protuberant, soft, nontender, no organomegaly, bowel sounds are present Extremities: mild edema thighs Genitourinary deferred Neuro: Intubated on ventilator - Vital Signs Vital signs: Vital Signs - 12hr 09/23/18 09/23/18 09/23/18 22:30 22:40 23:00 Temperature Pulse Rate 101 H 102 H 103 H Pulse Rate [ From Monitor] Pulse Rate [ Throughout] Respiratory 26 H 24 15 Rate Respiratory Rate [ Throughout] Blood Pressure 104/50 104/50 104/38 O2 Sat by Pulse 100 100 100 Oximetry 09/23/18 09/23/18 09/24/18 23:18 23:30 00:00 Temperature 98.2 F Pulse Rate 99 H 104 H Pulse Rate [ From Monitor] Pulse Rate [ Throughout] Respiratory 22 23 Rate Respiratory Rate [ Throughout] Blood Pressure 104/38 94/42 O2 Sat by Pulse 100 100 Oximetry 09/24/18 09/24/18 09/24/18 00:05 00:30 01:00 Temperature Pulse Rate 106 H 105 H Pulse Rate [ 101 H From Monitor] Pulse Rate [ Throughout] Respiratory 20 25 H 29 H Rate Respiratory Rate [ Throughout] Blood Pressure 120/60 108/58 O2 Sat by Pulse 100 100 Oximetry 09/24/18 09/24/18 09/24/18 01:30 01:58 02:00 Temperature Pulse Rate 99 H 101 H Pulse Rate [ From Monitor] Pulse Rate [ 97 H Throughout] Respiratory 12 20 Rate Respiratory 18 Rate [ Throughout] Blood Pressure 107/56 137/63 O2 Sat by Pulse 100 100 Oximetry 09/24/18 09/24/18 09/24/18 02:08 02:30 03:00 Temperature Pulse Rate 97 H 94 H Pulse Rate [ From Monitor] Pulse Rate [ 100 H Throughout] Respiratory 23 23 Rate Respiratory 18 Rate [ Throughout] Blood Pressure 137/63 124/60 O2 Sat by Pulse 100 100 Oximetry 09/24/18 09/24/18 09/24/18 03:10 03:30 04:00 Temperature 98.9 F Pulse Rate 98 H 94 H Pulse Rate [ From Monitor] Pulse Rate [ Throughout] Respiratory 22 21 Rate Respiratory Rate [ Throughout] Blood Pressure 139/42 124/37 O2 Sat by Pulse 100 100 Oximetry 09/24/18 09/24/18 09/24/18 04:16 04:30 04:49 Temperature Pulse Rate 98 H 95 H Pulse Rate [ 94 H From Monitor] Pulse Rate [ Throughout] Respiratory 22 22 Rate Respiratory Rate [ Throughout] Blood Pressure 117/37 108/66 O2 Sat by Pulse 100 100 Oximetry 09/24/18 09/24/18 09/24/18 05:00 05:30 06:00 Temperature Pulse Rate 97 H 95 H 93 H Pulse Rate [ From Monitor] Pulse Rate [ Throughout] Respiratory 28 H 20 22 Rate Respiratory Rate [ Throughout] Blood Pressure 108/66 108/66 126/66 O2 Sat by Pulse 100 100 100 Oximetry 09/24/18 09/24/18 09/24/18 06:30 07:00 07:30 Temperature Pulse Rate 95 H 93 H 93 H Pulse Rate [ From Monitor] Pulse Rate [ Throughout] Respiratory 21 14 17 Rate Respiratory Rate [ Throughout] Blood Pressure 127/56 119/63 130/65 O2 Sat by Pulse 100 100 100 Oximetry 09/24/18 09/24/18 09/24/18 07:56 07:57 08:00 Temperature 97.5 F L Pulse Rate 93 H 93 H Pulse Rate [ 98 H From Monitor] Pulse Rate [ 99 H Throughout] Respiratory 17 Rate Respiratory 18 Rate [ Throughout] Blood Pressure 117/62 117/62 O2 Sat by Pulse 100 100 Oximetry - Lab 09/23/18 08:10 09/23/18 08:10 Most recent lab results Calcium 6.9 mg/dL (8.4-10.2) L 09/23/18 08:10 Magnesium 2.10 mg/dL (1.7-2.3) 09/21/18 10:07 Medications & Allergies - Medications Allergies/Adverse Reactions: Allergies No Known Allergies Allergy (Unverified 09/11/18 17:50) Active Medications: Generic Name Dose Route Start Last Admin Trade Name Freq PRN Reason Stop Dose Admin Acetaminophen 650 mg 09/11/18 19:30 09/23/18 08:41 Tylenol PO 650 mg Q4H PRN Administration Pain MILD(1-3)/Fever >100.5/RIVERA Acetaminophen 650 mg 09/21/18 07:39 Tylenol [place] Q4H PRN Fever >101 Albuterol 2.5 mg 09/11/18 19:30 09/16/18 06:09 Proventil IH 2.5 mg Q4HRT PRN Administration Shortness Of Breath Albuterol 2.5 mg 09/20/18 20:00 09/24/18 07:55 Proventil IH 2.5 mg Q6HRT GIA Administration Amiodarone HCl 400 mg 09/23/18 11:00 09/23/18 21:49 Cordarone PO 400 mg BID GIA Administration Lipase/Protease/Amylase 1 each 09/23/18 10:[address] 10,500 Unit FEEDTUBE PRN PRN For Clogged Feeding Tube Atovaquone 750 mg 09/21/18 10:00 09/23/18 21:49 Mepron PO 750 mg BID GIA Administration Azithromycin 1,200 mg 09/25/18 10:00 Zithromax PO [place] GIA Famotidine 20 mg 09/24/18 10:00 Pepcid PO BID GIA Fentanyl 50 mcg 09/21/18 01:46 09/22/18 13:45 Sublimaze IV 50 mcg Q10MIN PRN Administration ANALGESIA Furosemide 20 mg 09/24/18 10:00 Lasix IV 09/24/18 12:00 ONCE NR Glycopyrrolate 2 mg 09/23/18 15:00 09/24/18 05:59 Robinul PO 2 mg Q8HR GIA Administration Hydrophilic Ointment 1 applic 09/21/18 01:46 09/22/18 03:46 Vaseline Lip Therapy TP 1 applic Q2HR PRN Administration Dry Lips Fluconazole 200 mls @ 100 mls/hr 09/13/18 14:00 09/23/18 09:53 Diflucan IV 100 mls/hr Q24HR GIA Administration Protocol Fentanyl Citrate 2,000 mcg in 100 mls @ 5.16 mls/hr 09/21/18 02:00 Fentanyl Drip Premix IV TITR GIA Protocol 1 MCG/KG/HR Midazolam HCl 100 mg/ Sodium 100 mls @ 2 mls/hr 09/21/18 02:00 09/21/18 15:39 Chloride IV 0 mg/hr TITR GIA 0 mls/hr Titration Protocol 2 MG/HR Heparin Sodium/Sodium Chloride 25,000 unit in 500 mls @ 30 mls/hr 09/21/18 11:00 09/24/18 02:47 Heparin/ 0.45% Nacl-25,000 Unit/500 Ml IV 1,400 units/hr TITR GIA 28 mls/hr Administration Protocol 1,500 UNITS/HR Norepinephrine 4 mg in 250 mls @ 7.5 mls/hr 09/22/18 16:00 09/23/18 15:25 Levophed Drip 4 Mg/Ns 250 Ml IV Infused TITR GIA Titration Protocol 2 MCG/MIN Ganciclovir Sodium 500 mg/ 250 mls @ 100 mls/hr 09/23/18 13:00 09/24/18 03:05 Sodium Chloride IV 100 mls/hr Q12H GIA Administration Ceftriaxone Sodium 2 gm in 100 mls @ 200 mls/hr 09/23/18 13:00 09/23/18 23:59 Rocephin/Ns 2 Gm/100 Ml IV 200 mls/hr Q12HR GIA Administration Protocol Vancomycin HCl 1,500 mg/ 530 mls @ 333.333 mls/hr 09/24/18 03:00 09/24/18 05:19 Sodium Chloride IV 333.333 mls/hr Q12H GIA Administration Levothyroxine Sodium 25 mcg 09/19/18 06:00 09/24/18 05:29 Synthroid PO 25 mcg DAILY@0600 GIA Administration Metoprolol Tartrate 5 mg 09/21/18 03:00 09/24/18 03:00 Lopressor IV Not Given Q6H GIA Metronidazole 500 mg 09/19/18 14:00 09/24/18 05:29 Flagyl PO 500 mg Q8HR GIA Administration Protocol Midazolam HCl 2 mg 09/21/18 01:46 Versed IV Q10MIN PRN Sedation Multi-Ingred Cream/Lotion/Oil/Oint 1 applic 09/21/18 01:46 Artificial Tears Ophth Oint OU Q4HR PRN Dry Eye(s) Ondansetron HCl 4 mg 09/11/18 19:30 Zofran IV Q8H PRN Nausea And Vomiting Scopolamine 1 each 09/18/18 18:00 09/21/18 17:14 Transderm-Scop TD 1 each Q3D GIA Administration Simple Syrup 15 ml 09/23/18 10:58 Simple Syrup FEEDTUBE PRN PRN Hypoglycemia Simple Syrup 30 ml 09/23/18 10:58 Simple Syrup FEEDTUBE PRN PRN Hypoglycemia Sodium Bicarbonate 325 mg 09/23/18 10:58 Sodium Bicarbonate FEEDTUBE PRN PRN For Clogged Feeding Tube Sodium Chloride 10 ml 09/11/18 22:00 09/23/18 23:25 Sodium Chloride Flush Syringe 10 Ml IV Not Given BID GIA Sodium Chloride 10 ml 09/11/18 19:30 Sodium Chloride Flush Syringe 10 Ml IV PRN PRN LINE FLUSH
[2018-09-24] MEDS: PEPCID PO SCH ×2 (11:14→21:29)
[2018-09-24] MEDS: CORDARONE PO SCH ×2 (11:14→21:29)
[2018-09-24] MEDS: MEPRON PO SCH ×2 (11:15→21:29)
[2018-09-24] MEDS: SODIUM CHLORIDE FLUSH SYRINGE 10 ML IV SCH ×2 (11:15→21:32)
[2018-09-24] MEDS: DIFLUCAN 200 ML IV SCH (11:16)
[2018-09-24] MEDS: ROCEPHIN/NS 2 GM/100 ML 2 GM/100 ML BAG IV SCH ×2 (11:16→21:30)
--- NOTE | 2018-09-24 12:15 | Progress Note ---
Assessment and Plan Patient is on by mouth amiodarone and maintained sinus rhythm still on the vent continue medical management as per the primary care team - Patient Problems (1) Acute kidney failure with tubular necrosis Current Visit: Yes Status: Acute (2) Encephalopathy Current Visit: Yes Status: Acute (3) Hyperkalemia Current Visit: Yes Status: Resolved (4) Neutropenia Current Visit: Yes Status: Acute (5) Pancytopenia Current Visit: Yes Status: Acute (6) Thrombocytopenia Current Visit: Yes Status: Acute (7) Acute respiratory failure with hypoxia Current Visit: Yes Status: Acute (8) HIV (human immunodeficiency virus infection) Current Visit: Yes Status: Chronic (9) Atrial fibrillation and flutter Current Visit: Yes Status: Resolved Subjective Date of service: 09/24/18 Principal diagnosis: Severe sepsis; Ac hypoxemic Resp failure; [place]. Pneumonia; Ac encephalopathy Interval history: pt on vent Objective Vital Signs Temp Pulse Pulse Pulse Resp Resp BP 09/24/18 11:18 90 116/58 09/24/18 11:08 92 H 117/62 09/24/18 10:38 92 H 117/62 09/24/18 08:00 97.5 F L 93 H 98 H 17 117/62 09/24/18 07:57 93 H 117/62 09/24/18 07:56 99 H 18 09/24/18 07:30 93 H 17 130/65 09/24/18 07:00 93 H 14 119/63 09/24/18 06:30 95 H 21 127/56 09/24/18 06:00 93 H 22 126/66 09/24/18 05:30 95 H 20 108/66 09/24/18 05:00 97 H 28 H 108/66 09/24/18 04:49 95 H 108/66 09/24/18 04:30 98 H 22 117/37 09/24/18 04:16 94 H 22 09/24/18 04:00 94 H 21 124/37 09/24/18 03:30 98 H 22 139/42 09/24/18 03:10 98.9 F 09/24/18 03:00 94 H 23 124/60 09/24/18 02:30 97 H 23 137/63 09/24/18 02:08 100 H 18 09/24/18 02:00 101 H 20 137/63 09/24/18 01:58 97 H 18 09/24/18 01:30 99 H 12 107/56 09/24/18 01:00 105 H 29 H 108/58 09/24/18 00:30 106 H 25 H 120/60 09/24/18 00:05 101 H 20 09/24/18 00:00 104 H 23 94/42 09/23/18 23:30 99 H 22 104/38 09/23/18 23:18 98.2 F 09/23/18 23:00 103 H 15 104/38 09/23/18 22:40 102 H 24 104/50 09/23/18 22:30 101 H 26 H 104/50 09/23/18 22:00 101 H 24 106/77 09/23/18 21:30 103 H 20 114/59 09/23/18 21:02 101 H 96/31 09/23/18 21:00 101 H 29 H 96/31 09/23/18 20:30 103 H 27 H 121/67 09/23/18 20:00 101 H 116 H 18 111/58 09/23/18 19:53 98 H 18 09/23/18 19:52 09/23/18 19:43 101 H 18 09/23/18 19:39 100 H 111/58 09/23/18 19:34 100.1 F H 09/23/18 19:30 101 H 22 102/57 09/23/18 19:00 98 H 27 H 105/56 09/23/18 18:30 100 H 26 H 94/55 09/23/18 18:00 101 H 29 H 101/56 09/23/18 17:30 102 H 21 103/56 09/23/18 17:00 98 H 27 H 103/52 09/23/18 16:30 102 H 25 H 111/57 09/23/18 16:00 99.8 F H 99 H 24 108/54 09/23/18 15:30 98 H 22 111/59 09/23/18 15:00 108 H 26 H 100/47 09/23/18 14:51 94 H 22 09/23/18 14:30 106 H 26 H 93/55 09/23/18 14:00 106 H 32 H 110/50 09/23/18 13:30 99 H 29 H 120/57 09/23/18 13:00 94 H 32 H 121/58 09/23/18 12:51 91 H 121/61 09/23/18 12:31 87 19 85/42 Pulse Ox 09/24/18 11:18 09/24/18 11:08 100 09/24/18 10:38 100 09/24/18 08:00 100 09/24/18 07:57 100 09/24/18 07:56 09/24/18 07:30 100 09/24/18 07:00 100 09/24/18 06:30 100 09/24/18 06:00 100 09/24/18 05:30 100 09/24/18 05:00 100 09/24/18 04:49 100 09/24/18 04:30 100 09/24/18 04:16 09/24/18 04:00 100 09/24/18 03:30 100 09/24/18 03:10 09/24/18 03:00 100 09/24/18 02:30 100 09/24/18 02:08 09/24/18 02:00 100 09/24/18 01:58 09/24/18 01:30 100 09/24/18 01:00 100 09/24/18 00:30 100 09/24/18 00:05 09/24/18 00:00 100 09/23/18 23:30 100 09/23/18 23:18 09/23/18 23:00 100 09/23/18 22:40 100 09/23/18 22:30 100 09/23/18 22:00 100 09/23/18 21:30 100 09/23/18 21:02 09/23/18 21:00 100 09/23/18 20:30 100 09/23/18 20:00 100 09/23/18 19:53 09/23/18 19:52 100 09/23/18 19:43 09/23/18 19:39 100 09/23/18 19:34 09/23/18 19:30 100 09/23/18 19:00 100 09/23/18 18:30 100 09/23/18 18:00 100 09/23/18 17:30 100 09/23/18 17:00 100 09/23/18 16:30 100 09/23/18 16:00 100 09/23/18 15:30 100 09/23/18 15:00 100 09/23/18 14:51 09/23/18 14:30 100 09/23/18 14:00 100 09/23/18 13:30 100 09/23/18 13:00 100 09/23/18 12:51 98 09/23/18 12:31 98 - Physical Examination General: Other (intubated, lethargic, unresponsive) HEENT: Positive: PERRL Neck: Positive: neck supple. Negative: JVD/HJR Cardiac: Positive: Reg Rate and Rhythm Lungs: Positive: Decreased Breath Sounds Neuro: Positive: Grossly Intact, Other (Lethargic, unresponsive) Abdomen: Positive: Unremarkable Skin: Negative: Rash Musculoskeletal: No Fluid Collection, Normal Range of Motion Extremities: Present: edema, +1 Edema - Imaging and Cardiology EKG: report reviewed, image reviewed Echo: report reviewed ( normal LV, no significant valvular abnormalities. ) - Telemetry EKG Rhythm: Sinus Rhythm - EKG Sinus rhythms and dysrhythmias: sinus rhythm, sinus arrest or pause (Patient had very transient junctional rythm at rate of 35/mt,with sinus pause,lasted< one minute,reverted to judson S.R at >90/mt at 08:12 AM,09/18/2018.) - Allied health notes Allied health notes reviewed: nursing
--- NOTE | 2018-09-24 14:11 | Progress Note ---
Assessment and Plan Assessment and plan: Severe Sepsis. Etiology secondary to bacterial pneumonia +/- gastroenteritis with newly diagnosed with HIV. Continue IV antibiotics per ID. Acute hypoxemic respiratory failure. Etiology secondary to sepsis/multifocal pneumonia with probable concomitant aspiration. Bilateral pneumonia. Etiology likely secondary to PJP Pneumonia +/- aspiration. Chest x-ray, CT scan reveals multifocal pneumonia. Follow-up tracheal aspirate. Toxic metabolic encephalopathy. 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 Continue antibiotics per ID. Gastroenteritis. Follow-up stool studies and CT scan of the abdomen and pelvis--check for colitis with patient is hemodynamically stable. Continue antibiotics per ID A. fib with RVR. Converted to NSR. PO amiodarone and heparin drip. 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 Repeat LP yesterday showed no pleocytosis, protein still high, low glucose (WBC 4, RBC 587, Lymph 71%, protein 123, glucose 32 on 09/19/2018). Should have good prognosis, but his mentation is not better after D4 of penicillin G. It may represent also effects from HIV virus. Per ID Diarrhea. Resolved, etiology likely secondary to Giardia. Giardia antigen positive in stool. CT scan as above Oral candidiasis. Continue fluconazole. HIV/AIDS. New Diagnosis. Neutropenia/thrombocytopenia. Likely from HIV myelosuppression, sepsis Prognosis is guarded. The high probability of a clinically significant, sudden or life threatening deterioration of the [cardiac, respiratory and neuro] system(s) required my full and direct attention, intervention and personal management. The aggregate critical care time was [32] minutes. This time is in addition to time spent performing reported procedures but includes the following: [x] Data Review and interpretation [x] Patient assessment and monitoring of vital signs [x] Documentation [x] Medication orders and management History Interval history: Patient is 33 yo initially presented with diarrhea, found to have pneumonia, sepsis, HIV/AIDS(new diagnosis) with CD4 count of 4. He was started on abx for PJP. His mental status has worsened with confusion, lethargy. LP done . He was diagnosed with neurosyphilis. Started on Penicillin. Closest family is sister in [place], and dr. Baltazar spoke to her several times about diagnosis but did not tell her about HIV/AIDS because of patient confidentiality. The patient decompensated on 09/20/18 with acute hypoxemic respiratory failure and worsening toxic metabolic encephalopathy requiring transfer to ICU and intubation. He now remains on mechanical ventilation. The patient was also noted to develop SVT requiring amiodarone drip as well as heparin drip. Patient has now converted back to normal sinus rhythm but remains critically ill. Hospitalist Physical - Constitutional Vitals: Temp Pulse Resp BP Pulse Ox 98.0 F 85 22 94/59 100 09/24/18 12:00 09/24/18 13:00 09/24/18 13:00 09/24/18 13:00 09/24/18 13:00 General appearance: Present: severe distress - EENT Eyes: Present: PERRL, EOM intact ENT: hearing intact, clear oral mucosa, dentition normal - Neck Neck: Present: supple, normal ROM - Respiratory Respiratory effort: normal Respiratory: bilateral: CTA - Cardiovascular Rhythm: regular Heart Sounds: Present: S1 & S2. Absent: gallop, rub - Extremities Extremities: no ischemia, No edema, Full ROM - Abdominal General gastrointestinal: soft, non-tender, non-distended, normal bowel sounds - Integumentary Integumentary: Present: clear, warm, dry - Neurologic Neurologic: CNII-XII intact, moves all extremities Results - Labs CBC & Chem 7: 09/23/18 08:10 09/23/18 08:10 Labs: Laboratory Last Values WBC 1.3 K/mm3 (4.5-11.0) L* 09/23/18 08:10 RBC 3.53 M/mm3 (3.65-5.03) L 09/23/18 08:10 Hgb 9.9 gm/dl (11.8-15.2) L 09/23/18 08:10 Hct 30.0 % (35.5-45.6) L 09/23/18 08:10 MCV 85 fl (84-94) 09/23/18 08:10 MCH 28 pg (28-32) 09/23/18 08:10 MCHC 33 % (32-34) 09/23/18 08:10 RDW 14.0 % (13.2-15.2) 09/23/18 08:10 Plt Count 119 K/mm3 (140-440) L 09/23/18 08:10 Gage % (Auto) [place] [employer] 09/21/18 04:15 Add Manual Diff Complete 09/21/18 04:15 Total Counted 100 09/21/18 04:15 Seg Neuts % (Manual) 52.0 % (40.0-70.0) 09/21/18 04:15 Band Neutrophils % 18.0 % 09/21/18 04:15 Lymphocytes % (Manual) 16.0 % (13.4-35.0) 09/21/18 04:15 Reactive Lymphs % (Man) 0 % 09/21/18 04:15 Monocytes % (Manual) 12.0 % (0.0-7.3) H 09/21/18 04:15 Eosinophils % (Manual) 0 % (0.0-4.3) 09/21/18 04:15 Basophils % (Manual) 0 % (0.0-1.8) 09/21/18 04:15 Metamyelocytes % 0 % 09/21/18 04:15 Myelocytes % 1.0 % 09/21/18 04:15 Promyelocytes % 1.0 % 09/21/18 04:15 Blast Cells % 0 % 09/21/18 04:15 Nucleated RBC % Not Reportable 09/21/18 04:15 Seg Neutrophils # Man 1.6 K/mm3 (1.8-7.7) L 09/21/18 04:15 Band Neutrophils # 0.6 K/mm3 09/21/18 04:15 Abs Lymphs (Manual) 309 cells/uL (850-3900) L 09/13/18 12:29 Lymphocytes # (Manual) 0.5 K/mm3 (1.2-5.4) L 09/21/18 04:15 Abs React Lymphs (Man) 0.0 K/mm3 09/21/18 04:15 Monocytes # (Manual) 0.4 K/mm3 (0.0-0.8) 09/21/18 04:15 Eosinophils # (Manual) 0.0 K/mm3 (0.0-0.4) 09/21/18 04:15 Basophils # (Manual) 0.0 K/mm3 (0.0-0.1) 09/21/18 04:15 Metamyelocytes # 0.0 K/mm3 09/21/18 04:15 Myelocytes # 0.0 K/mm3 09/21/18 04:15 Promyelocytes # 0.0 K/mm3 09/21/18 04:15 Blast Cells # 0.0 K/mm3 09/21/18 04:15 WBC Morphology Not Reportable 09/21/18 04:15 Hypersegmented Neuts Not Reportable 09/21/18 04:15 Hyposegmented Neuts Not Reportable 09/21/18 04:15 Hypogranular Neuts Not Reportable 09/21/18 04:15 Smudge Cells Not Reportable 09/21/18 04:15 Toxic Granulation Not Reportable 09/21/18 04:15 Toxic Vacuolation Not Reportable 09/21/18 04:15 Dohle Bodies Not Reportable 09/21/18 04:15 Pelger-Huet Anomaly Not Reportable 09/21/18 04:15 Giovanna Rods Not Reportable 09/21/18 04:15 Platelet Estimate Appears normal 09/21/18 04:15 Clumped Platelets Not Reportable 09/21/18 04:15 Plt Clumps, EDTA Not Reportable 09/21/18 04:15 Large Platelets Not Reportable 09/21/18 04:15 Giant Platelets Not Reportable 09/21/18 04:15 Platelet Satelliting Not Reportable 09/21/18 04:15 Plt Morphology Comment Not Reportable 09/21/18 04:15 RBC Morphology Not Reportable 09/21/18 04:15 Dimorphic RBCs Not Reportable 09/21/18 04:15 Polychromasia Not Reportable 09/21/18 04:15 Hypochromasia 1+ 09/21/18 04:15 Poikilocytosis Not Reportable 09/21/18 04:15 Anisocytosis 1+ 09/21/18 04:15 Microcytosis Few 09/21/18 04:15 Macrocytosis Not Reportable 09/21/18 04:15 Spherocytes Not Reportable 09/21/18 04:15 Pappenheimer Bodies Not Reportable 09/21/18 04:15 Sickle Cells Not Reportable 09/21/18 04:15 Target Cells Rare 09/21/18 04:15 Tear Drop Cells Not Reportable 09/21/18 04:15 Ovalocytes 1+ 09/21/18 04:15 Stomatocytes Few 09/21/18 04:15 Helmet Cells Not Reportable 09/21/18 04:15 Ponce-Sem[place] Bodies Not Reportable 09/21/18 04:15 [place] Rings Not Reportable 09/21/18 04:15 Dioni Cells Not Reportable 09/21/18 04:15 Bite Cells Not Reportable 09/21/18 04:15 Crenated Cell Not Reportable 09/21/18 04:15 Elliptocytes Few 09/21/18 04:15 Acanthocytes (Spur) Not Reportable 09/21/18 04:15 Rouleaux Not Reportable 09/21/18 04:15 Hemoglobin C Crystals Not Reportable 09/21/18 04:15 Schistocytes Not Reportable 09/21/18 04:15 Malaria parasites Not Reportable 09/21/18 04:15 Kieran Bodies Not Reportable 09/21/18 04:15 Hem Pathologist Commnt No 09/21/18 04:15 PT 19.9 Sec. (12.2-14.9) H 09/21/18 15:00 INR 1.65 (0.87-1.13) H 09/21/18 15:00 APTT 40.9 Sec. (24.2-36.6) H 09/21/18 15:00 Heparin Anti-Xa Level 0.35 U.I./ml (0.3-0.7) 09/23/18 13:40 POC ABG pH 7.402 (7.35-7.45) 09/24/18 10:58 POC ABG pCO2 40.0 (35-45) 09/24/18 10:58 POC ABG pO2 104 (80-105) 09/24/18 10:58 POC ABG HCO3 24.8 09/24/18 10:58 POC ABG Total CO2 26 09/24/18 10:58 POC ABG O2 Sat 98 09/24/18 10:58 POC ABG Base Excess 0 09/24/18 10:58 FiO2 30 % 09/24/18 10:58 Sodium 140 mmol/L (137-145) 09/23/18 08:10 Potassium 3.8 mmol/L (3.6-5.0) 09/23/18 08:10 Chloride 105.7 mmol/L (98-107) 09/23/18 08:10 Carbon Dioxide 24 mmol/L (22-30) 09/23/18 08:10 Anion Gap 14 mmol/L 09/23/18 08:10 BUN 19 mg/dL (9-20) 09/23/18 08:10 Creatinine 1.2 mg/dL (0.8-1.5) 09/23/18 08:10 Estimated GFR > 60 ml/min 09/23/18 08:10 BUN/Creatinine Ratio 16 % 09/23/18 08:10 Glucose 122 mg/dL (75-100) H 09/23/18 08:10 POC Glucose 111 (70-105) H 09/24/18 12:04 Lactic Acid 0.90 mmol/L (0.7-2.0) 09/11/18 20:17 Calcium 6.9 mg/dL (8.4-10.2) L 09/23/18 08:10 Magnesium 2.10 mg/dL (1.7-2.3) 09/21/18 10:07 Total Bilirubin 0.30 mg/dL (0.1-1.2) 09/21/18 10:07 Direct Bilirubin < 0.2 mg/dL (0-0.2) 09/13/18 07:31 AST 94 units/L (5-40) H 09/21/18 10:07 ALT 28 units/L (7-56) 09/21/18 10:07 Alkaline Phosphatase 57 units/L (35-129) 09/21/18 10:07 Ammonia 47.0 umol/L (25-60) 09/16/18 11:41 Total Creatine Kinase 685 units/L (55-170) H 09/21/18 04:25 CK-MB (CK-2) 3.5 ng/mL (0.0-4.0) 09/21/18 04:25 CK-MB (CK-2) Rel Index 0.5 (0-4) 09/21/18 04:25 NT-Pro-B Natriuret Pep 145.9 pg/mL (0-450) 09/18/18 16:07 Total Protein 6.8 g/dL (6.3-8.2) 09/21/18 10:07 Albumin 2.8 g/dL (3.9-5) L 09/21/18 10:07 Albumin/Globulin Ratio 0.7 % 09/21/18 10:07 Vitamin B12 934.5 pg/mL (211-911) H 09/16/18 11:41 TSH 5.190 mlU/mL (0.270-4.200) H 09/18/18 12:46 Free T4 0.75 ng/dL (0.76-1.46) L 09/18/18 12:46 Urine Color [place] (Yellow) 09/11/18 Unknown Urine Turbidity Clear (Clear) 09/11/18 Unknown Urine pH 5.0 (5.0-7.0) 09/11/18 Unknown Ur Specific [place] 1.016 (1.003-1.030) 09/11/18 Unknown Urine Protein <15 mg/dl mg/dL (Negative) 09/11/18 Unknown Urine Glucose (UA) Neg mg/dL (Negative) 09/11/18 Unknown Urine Ketones Neg mg/dL (Negative) 09/11/18 Unknown Urine Blood Sm (Negative) 09/11/18 Unknown Urine Nitrite Neg (Negative) 09/11/18 Unknown Urine Bilirubin Neg (Negative) 09/11/18 Unknown Urine Urobilinogen < 2.0 mg/dL (<2.0) 09/11/18 Unknown Ur Leukocyte Esterase Neg (Negative) 09/11/18 Unknown Urine WBC (Auto) 1.0 /HPF (0.0-6.0) 09/11/18 Unknown Urine RBC (Auto) 3.0 /HPF (0.0-6.0) 09/11/18 Unknown Urine Mucus Few /HPF 09/11/18 Unknown CSF Appearance Clear 09/19/18 15:00 CSF Color Colorless 09/19/18 15:00 CSF WBC 4 /mm3 (1-10) 09/19/18 15:00 CSF RBC 583 /mm3 (0-0) 09/19/18 15:00 CSF Seg Neutrophils 21.4 % (0-6) 09/19/18 15:00 CSF Lymphocytes % 71.4 % (40-80) 09/19/18 15:00 CSF Reactive Lymphs 0 % 09/19/18 15:00 CSF Monocytes % 7.1 % (15-45) 09/19/18 15:00 CSF Eosinophils % 0 % 09/19/18 15:00 CSF Basophils 0 % 09/19/18 15:00 CSF Pathologist Review C 09/19/18 15:00 CSF Glucose 32 mg/dL 09/19/18 15:00 CSF Total Protein 123 mg/dL 09/19/18 15:00 CSF VDRL Reactive 1:4 (Nonreactive) H 09/19/18 15:00 Urine Opiates Screen Presumptive negative 09/17/18 15:52 Urine Methadone Screen Presumptive negative 09/17/18 15:52 Ur Barbiturates Screen Presumptive negative 09/17/18 15:52 Ur Phencyclidine Scrn Presumptive negative 09/17/18 15:52 Ur Amphetamines Screen Presumptive negative 09/17/18 15:52 U Benzodiazepines Scrn Presumptive negative 09/17/18 15:52 Urine Cocaine Screen Presumptive negative 09/17/18 15:52 U Marijuana (THC) Screen Presumptive negative 09/17/18 15:52 Drugs of Abuse Note Disclamer 09/17/18 15:52 Lymph Enumerat CD4/CD8 0.01 (0.86-5.00) L 09/13/18 12:29 % CD3 Cells 71 % (57-85) 09/13/18 12:29 Absolute CD3 Count 220 cells/uL (840-3060) L 09/13/18 12:29 % CD4 Cells 1 % (30-61) L 09/13/18 12:29 Absolute CD4 Count 4 cells/uL (490-1740) L 09/13/18 12:29 % CD8 Cells 70 % (12-42) H 09/13/18 12:29 Absolute CD8 Count 216 cells/uL (180-1170) 09/13/18 12:29 % CD19 Cells 17 % (6-29) 09/13/18 12:29 Absolute CD19 Count 54 cells/uL (110-660) L 09/13/18 12:29 RPR Titer 1:16 09/13/18 12:29 RPR Reactive (Nonreactive) 09/13/18 12:29 T.pallidum Ab (FTA-ABS) Reactive (Nonreactive) H 09/14/18 16:34 C. 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 See scanned result 09/16/18 12:03 Hepatitis A IgM Ab Non-reactive (NonReactive) 09/13/18 12:29 Hep Bs Antigen Non-reactive (Negative) 09/13/18 12:29 Hep B Core IgM Ab Non-reactive (NonReactive) 09/13/18 12:29 Hepatitis C Antibody Non-reactive (NonReactive) 09/13/18 12:29 HIV-1 Antibody See scanned result 09/11/18 19:14 HIV-1 RNA PCR copies/ml 69327 Copies/mL H 09/13/18 12:29 HIV-1 RNA (PCR) log 4.71 Log cps/mL H 09/13/18 12:29 HIV-2 Ab (Immunoblot) See scanned result 09/11/18 19:14 HIV 1&2 Antibody Rapid Reactive (Non React) 09/11/18 19:14 HIV P24 Antigen Non react (Non React) 09/11/18 19:14 Influenza A (Rapid) Negative (Negative) 09/13/18 16:05 Influenza A (RT-PCR) Negative (Negative) 09/13/18 16:05 Influenza B (Rapid) Negative (Negative) 09/13/18 16:05 Influenza B (RT-PCR) Negative (Negative) 09/13/18 16:05 Toxoplasma IgG Ab <7.20 IU/mL (<7.20) 09/16/18 12:09 Miscellaneous Test see below 09/21/18 03:55 Nutrition/Malnutrition Assess - Dietary Evaluation Nutrition/Malnutrition Findings: Nutrition Notes Start: 09/12/18 17:45 Freq: Status: Active Protocol: Document 09/23/18 10:40 TW (Rec: 09/23/18 10:57 TW [id number]) Co-Sign 09/23/18 10:40 OL Nutrition Notes Initial or Follow up Reassessment Current Diagnosis Sepsis Other Pertinent Diagnosis Newly dx HIV, Bilat pneu Current Diet Osmolite 1.5 at 50mL/hr Labs/Tests BUN 27 Cr 2 Pertinent Medications Reviewed Height 6 ft Weight 103.6 kg [place] Body Weight (kg) 80.90 BMI 30.9 Subjective/Other Information F/U for TF tolerance/ need for TF change. Noted TF running at goal (60mL/hr). Per RN pt is tolerating TF well. Percent of energy/protein needs met: 100%/55% Burn Absent Trauma Absent #2 Nutrition Diagnosis Inadequate oral intake Etiology vent status As Evidenced by Signs and Symptoms pt requiring EN #1 Nutrition Diagnosis Malnutrition Diagnosis Progress(for reassessment Continues documentation) Is patient on ventilator? 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
[2018-09-24] MEDS: VERSED IV PRN (15:38)
[2018-09-24] MEDS: SUBLIMAZE IV PRN (15:45)
[2018-09-24] MEDS: TRANSDERM-SCOP TD SCH (17:53)
[2018-09-25] MEDS: PROVENTIL IH SCH ×4 (01:06→19:32)
[2018-09-25] MEDS: VERSED IV PRN (03:08)
[2018-09-25] MEDS: VANCOMYCIN 1,500 MG in NACL 0.9% 500 ML 500 ML IV SCH ×2 (03:10→15:30)
[2018-09-25] MEDS: LOPRESSOR IV SCH ×4 (03:15→21:16)
--- NOTE | 2018-09-25 03:38 | XRay Report ---
FINAL REPORT PROCEDURE: XR CHEST 1V AP TECHNIQUE: Chest radiograph anteroposterior view. CPT 43410 HISTORY: follow up respiratory failure COMPARISON: 09/24/2018 FINDINGS: Heart: Normal. Mediastinum/Vessels: Normal. Lungs/Pleural space: There elevation of the right hemidiaphragm. There is mild bilateral perihilar pu lmonary edema. There are no effusions or pneumothoraces.. Bony thorax: No acute osseous abnormality. Life support devices: The endotracheal tube is in the mid trachea. The NG tube is in the stomach. The re is a right-sided PICC line. The tip is in the superior vena cava.. IMPRESSION: The heart size is normal. There elevation of the right hemidiaphragm. There is mild bilateral perihilar pulmonary edema. There are no effusions or pneumothoraces.. The endotracheal tube is in the mid trachea. The NG tube is in the stomach. There is a right-sided PI CC line. The tip is in the superior vena cava..
[2018-09-25] MEDS: CYTOVENE 500 MG in NACL 0.9% 250ML 250 ML IV SCH ×2 (03:45→12:34)
[2018-09-25 05:23] LABS: Hematocrit 29.4 % (35.5-45.6); Hemoglobin 9.7 gm/dl (11.8-15.2)
[2018-09-25] MEDS: SYNTHROID PO SCH (06:10)
[2018-09-25] MEDS: ROBINUL PO SCH ×3 (06:10→21:16)
[2018-09-25] MEDS: FLAGYL PO SCH ×3 (06:10→21:15)
--- NOTE | 2018-09-25 09:21 | Progress Note ---
Assessment and Plan Patient is on by mouth amiodarone and maintained sinus rhythm still on the vent continue medical management as per the primary care team, patient is on heparin awaiting decision on vent as patient may need to be trached - Patient Problems (1) Acute kidney failure with tubular necrosis Current Visit: Yes Status: Acute (2) Encephalopathy Current Visit: Yes Status: Acute (3) Hyperkalemia Current Visit: Yes Status: Resolved (4) Neutropenia Current Visit: Yes Status: Acute (5) Pancytopenia Current Visit: Yes Status: Acute (6) Thrombocytopenia Current Visit: Yes Status: Acute (7) Acute respiratory failure with hypoxia Current Visit: Yes Status: Acute (8) HIV (human immunodeficiency virus infection) Current Visit: Yes Status: Chronic (9) Atrial fibrillation and flutter Current Visit: Yes Status: Resolved Subjective Date of service: 09/25/18 Principal diagnosis: Severe sepsis; Ac hypoxemic Resp failure; [place]. Pneumonia; Ac encephalopathy Interval history: Patient is arousable not on sedation Objective Vital Signs Temp Pulse Pulse Pulse Resp Resp BP 09/25/18 09:12 105 H 26 H 09/25/18 08:59 90 26 H 117/68 09/25/18 08:00 98.4 F 88 88 29 H 110/66 09/25/18 07:30 85 18 112/70 09/25/18 07:00 88 24 110/60 09/25/18 06:30 86 23 123/62 09/25/18 06:00 88 27 H 107/65 09/25/18 05:30 87 23 105/63 09/25/18 05:00 87 26 H 101/68 09/25/18 04:30 92 H 26 H 107/63 09/25/18 04:00 99.1 F 91 H 91 H 28 H 111/65 09/25/18 03:37 94 H 95/64 09/25/18 03:30 94 H 27 H 95/64 09/25/18 03:15 93 H 112/60 09/25/18 03:00 87 27 H 112/60 09/25/18 02:30 91 H 28 H 116/65 09/25/18 02:00 93 H 26 H 108/56 09/25/18 01:30 92 H 30 H 112/70 09/25/18 01:24 09/25/18 01:20 91 H 31 H 09/25/18 01:07 89 28 H 09/25/18 01:00 90 25 H 124/67 09/25/18 00:30 90 28 H 130/53 09/25/18 00:00 99.8 F H 91 H 91 H 26 H 115/63 09/24/18 23:45 93 H 130/53 09/24/18 23:30 90 29 H 116/66 09/24/18 23:04 89 22 86/57 09/24/18 23:00 89 24 86/57 09/24/18 22:30 92 H 28 H 103/58 09/24/18 22:00 89 24 108/48 09/24/18 21:30 86 23 107/57 09/24/18 21:19 89 104/55 09/24/18 21:00 87 22 105/61 09/24/18 20:30 89 25 H 101/57 09/24/18 20:00 99.2 F 90 96 H 24 103/55 09/24/18 19:35 86 20 09/24/18 19:30 90 23 97/57 09/24/18 19:15 85 85 21 111/57 09/24/18 19:00 86 22 112/55 09/24/18 18:30 90 19 101/55 09/24/18 18:00 89 22 99/48 09/24/18 17:30 82 22 97/40 09/24/18 17:00 81 21 95/41 09/24/18 16:30 80 24 93/46 09/24/18 16:00 98.6 F 89 83 22 95/41 09/24/18 15:30 86 20 102/49 09/24/18 15:08 87 93/49 09/24/18 15:00 87 20 93/49 09/24/18 14:30 88 22 111/63 09/24/18 14:00 88 97 H 19 18 102/61 09/24/18 13:30 85 18 109/60 09/24/18 13:00 85 22 94/59 09/24/18 12:30 83 20 102/56 09/24/18 12:00 98.0 F 83 83 15 105/61 09/24/18 11:30 82 18 109/61 09/24/18 11:18 90 116/58 09/24/18 11:08 92 H 117/62 09/24/18 11:00 87 18 113/58 09/24/18 10:38 92 H 117/62 09/24/18 10:30 90 16 118/63 09/24/18 10:00 91 H 23 117/57 09/24/18 09:30 93 H 22 108/65 Pulse Ox 09/25/18 09:12 09/25/18 08:59 99 09/25/18 08:00 99 09/25/18 07:30 99 09/25/18 07:00 100 09/25/18 06:30 99 09/25/18 06:00 100 09/25/18 05:30 100 09/25/18 05:00 98 09/25/18 04:30 99 09/25/18 04:00 100 09/25/18 03:37 99 09/25/18 03:30 99 09/25/18 03:15 09/25/18 03:00 98 09/25/18 02:30 99 09/25/18 02:00 100 09/25/18 01:30 100 09/25/18 01:24 98 09/25/18 01:20 09/25/18 01:07 09/25/18 01:00 98 09/25/18 00:30 100 09/25/18 00:00 98 09/24/18 23:45 98 09/24/18 23:30 99 09/24/18 23:04 99 09/24/18 23:00 99 09/24/18 22:30 98 09/24/18 22:00 99 09/24/18 21:30 98 09/24/18 21:19 09/24/18 21:00 98 09/24/18 20:30 98 09/24/18 20:00 98 09/24/18 19:35 09/24/18 19:30 100 09/24/18 19:15 95 09/24/18 19:00 98 09/24/18 18:30 97 09/24/18 18:00 97 09/24/18 17:30 97 09/24/18 17:00 98 09/24/18 16:30 94 09/24/18 16:00 100 09/24/18 15:30 85 09/24/18 15:08 09/24/18 15:00 09/24/18 14:30 09/24/18 14:00 09/24/18 13:30 09/24/18 13:00 09/24/18 12:30 09/24/18 12:00 09/24/18 11:30 09/24/18 11:18 09/24/18 11:08 09/24/18 11:00 09/24/18 10:38 09/24/18 10:30 09/24/18 10:00 09/24/18 09:30 100 - Physical Examination General: Other (intubated, lethargic, ) HEENT: Positive: PERRL Neck: Positive: neck supple. Negative: JVD/HJR Cardiac: Positive: Regular Rhythm Lungs: Positive: clear to auscultation Neuro: Positive: Grossly Intact, Other (Lethargic, unresponsive) Abdomen: Positive: Unremarkable Skin: Negative: Rash Musculoskeletal: No Fluid Collection, Normal Range of Motion Extremities: Present: edema, +1 Edema - Labs and Meds CBC 09/25/18 Range/Units 03:45 Hgb 9.7 L (11.8-15.2) gm/dl Hct 29.4 L (35.5-45.6) % Plt Count 104 L (140-440) K/mm3 - Imaging and Cardiology EKG: report reviewed, image reviewed Echo: report reviewed ( normal LV, no significant valvular abnormalities. ) - Telemetry EKG Rhythm: Sinus Rhythm (in 80's) - EKG Sinus rhythms and dysrhythmias: sinus rhythm, sinus arrest or pause (Patient had very transient junctional rythm at rate of 35/mt,with sinus pause,lasted< one minute,reverted to judson S.R at >90/mt at 08:12 AM,09/18/2018.) - Allied health notes Allied health notes reviewed: nursing
[2018-09-25] MEDS: ROCEPHIN/NS 2 GM/100 ML 2 GM/100 ML BAG IV SCH ×2 (10:00→21:17)
[2018-09-25] MEDS: MEPRON PO SCH ×2 (10:00→21:15)
[2018-09-25] MEDS: SODIUM CHLORIDE FLUSH SYRINGE 10 ML IV SCH ×2 (10:00→21:18)
[2018-09-25] MEDS: PEPCID PO SCH ×2 (10:00→21:15)
[2018-09-25] MEDS: ZITHROMAX PO SCH (10:00)
[2018-09-25] MEDS: DIFLUCAN 200 ML IV SCH (10:01)
[2018-09-25] MEDS: CORDARONE PO SCH ×2 (10:01→21:14)
--- NOTE | 2018-09-25 10:52 | Progress Note ---
Assessment and Plan Cultures: 09/11/2018 blood culture: no growth 09/13/2018 serum cryptococcus ag neg 09/14/2018 CSF cryptococcus ag neg 09/14/2018 stool Nona 09/15/2018 stool +Giardia ag 09/19/2018 CSF cryptococcus ag neg 09/21/2018 tracheal aspirate culture: Nona albicans 09/23/2018 blood culture: No growth 09/23/2018 Fungal blood culture: no growth thus far A/P: 33 y/o male with no PMH; admitted on 09/11/2018 due to 4 days-AMS/behavioral changes, nausea, voimiting, diarrhea, weight loss and cough: 1) Septic shock: etiology unclear. cultures negative thus far, remains on expanded coverage for now. 2) Disseminated CMV viremia: continue IV Ganciclovir, will increase dose today given improvement in renal function. Monitor for worsening leucopenia. Given issues with renal function, will hold off on addition of foscarnet. Will order repeat CMV DNA PCR for tomorrow, would expect no significant change in the log value in the first week. 3) Acute respiratory failure: likely multifactorial from multifocal pneumonia +/- volume overload. PJP DFA negative. Continue Atovaquone. 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 Of note, MRI did not show ventriculitis. Blood CMV DNA PCR = 1,058,978. CSF YAYO virus DNA PCR neg. 5) Neurosyphilis: CSF VDRL positive, was on Penicillin G, given decline in clinical condition, and to avoid double beta-lactam abx and increased seizure risk, continue high dose IV Ceftriaxone which does have activity against Trepon gulshan pallidum. 6) Diarrhea: likely due to Giardiasis as Giardia antigen positive in stool, in immunocompromised patient, on flagyl. Stable. 7) Oral candidiasis: better, on fluconazole. 8) A.fib with RVR, now back to sinus: cardiology following. On Amiodarone. 9) HIV/AIDS: newly diagnosed. Risk factor is MSM behavior. CD4=4. VL=50,700 10) Neutropenia/thrombocytopenia: possibly from HIV/CMV myelosuppression +/- sepsis. Can also get worse from ganciclovir. r/o disseminated MAC 11) New MAL: ? polypharmacy (bactrim) ? HIV ? CMV. improving. Nephrology following. Recs: - continue IV Ganciclovir to 5 mg/kg q12 hrs - continue high dose IV Ceftriaxone 2 gm q12 hrs, IV Vancomycin - continue IV Flagyl - continue atovaquone and azithromycin - continue fluconazole D12 - ordered CBC, CMP, CMV DNA PCR tomorrow - Hope to de-escalate abx soon. Will follow. Please call with questions. MD Luis[facility] C: [phone] O: [phone] F: [phone] Subjective Date of service: 09/25/18 Principal diagnosis: Severe sepsis; Ac hypoxemic Resp failure; [place]. Pneumonia; Ac encephalopathy Interval history: No fevers. Weaned off pressors. Remains on the ventilator. Objective - Exam Narrative Exam: Physical Exam: Constitutional: intubated, on the event. Head, Ears, Nose: Normocephalic, atraumatic. Eyes: Conjunctivae/corneas clear. No icterus. No ptosis. Neck: Supple, no meningeal signs Oral: intubated Cardiovascular: S1, S2 normal. Respiratory: Good air entry, clear to auscultation bilaterally GI: Soft, non-tender; bowel sounds normal. No peritoneal signs Musculoskeletal: No pedal edema, no cyanosis. Skin: No rash or abscess Hem/Lymphatic: No palpable cervical or supraclavicular nodes. No lymphangitis Psych: no agitation Neurological: sedated, intubated - Constitutional Vitals: Vital Signs Temp Pulse Resp BP Pulse Ox 98.4 F 90 27 H 111/63 100 09/25/18 09:00 09/25/18 10:00 09/25/18 10:00 09/25/18 10:00 09/25/18 10:00 Temperature -Last 24 Hours Temperature 98.4 F Temperature 98.4 F Temperature 99.1 F Temperature 99.8 F Temperature 99.2 F Temperature 98.6 F Temperature 98.6 F Temperature 98.0 F - Labs CBC & Chem 7: 09/25/18 03:45 09/23/18 08:10 Labs: Abnormal lab results 09/24/18 09/24/18 09/24/18 Range/Units 12:04 14:42 18:10 Hgb (11.8-15.2) gm/dl Hct (35.5-45.6) % Plt Count (140-440) K/mm3 Heparin Anti-Xa Level 0.76 H (0.3-0.7) U.I./ml POC ABG pH (7.35-7.45) POC ABG pCO2 (35-45) POC Glucose 111 H 138 H (70-105) 09/25/18 09/25/18 Range/Units 03:45 04:24 Hgb 9.7 L (11.8-15.2) gm/dl Hct 29.4 L (35.5-45.6) % Plt Count 104 L (140-440) K/mm3 Heparin Anti-Xa Level (0.3-0.7) U.I./ml POC ABG pH 7.460 H (7.35-7.45) POC ABG pCO2 32.9 L (35-45) POC Glucose (70-105) - Imaging and cardiology Chest x-ray: report reviewed, image reviewed (right hemidiaphragm elevation, no new pneumonia. Stable findings.)
[2018-09-25] MEDS ORDERED: NACL 0.9% 500 ML 500 ML ONE (11:06)
--- NOTE | 2018-09-25 11:46 | Progress Note ---
Assessment and Plan Assessment and plan: Severe Sepsis. Etiology secondary to bacterial pneumonia +/- gastroenteritis with newly diagnosed with HIV. Continue IV antibiotics per ID. Acute hypoxemic respiratory failure. Etiology secondary to sepsis/multifocal pneumonia with probable concomitant aspiration. Bilateral pneumonia. Etiology likely secondary to PJP Pneumonia +/- aspiration. Chest x-ray, CT scan reveals multifocal pneumonia. Follow-up tracheal aspirate. Toxic metabolic encephalopathy. Etiology secondary to to meningeal ne urosyphilis v/s CMV encephalitis. Of note, MRI did not show ventriculitis. Blood CMV DNA PCR = 1,058,978. CSF YAYO virus DNA PCR neg. Gastroenteritis. Follow-up stool studies and CT scan of the abdomen and pelvis--check for colitis when patient is hemodynamically stable. Continue antibiotics per ID A. fib with RVR. Converted to NSR. PO amiodarone and heparin drip. 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 Diarrhea. Resolved, etiology likely secondary to Giardia. Giardia antigen positive in stool. CT scan as above Oral candidiasis. Continue fluconazole. HIV/AIDS. New Diagnosis. Neutropenia/thrombocytopenia. Likely from HIV myelosuppression, sepsis Prognosis is guarded. Sister at bedside and updated plan of care. The high probability of a clinically significant, sudden or life threatening deterioration of the [cardiac, respiratory and neuro] system(s) required my full and direct attention, intervention and personal management. The aggregate critical care time was [31] minutes. This time is in addition to time spent performing reported procedures but includes the following: [x] Data Review and interpretation [x] Patient assessment and monitoring of vital signs [x] Documentation [x] Medication orders and management History Interval history: Patient is 33 yo initially presented with diarrhea, found to have pneumonia, sepsis, HIV/AIDS(new diagnosis) with CD4 count of 4. He was started on abx for PJP. His mental status has worsened with confusion, lethargy. LP done . He was diagnosed with neurosyphilis. Started on Penicillin. Closest family is sister in [place], and dr. Baltazar spoke to her several times about diagnosis but did not tell her about HIV/AIDS because of patient confidentiality. The patient decompensa rosa on 09/20/18 with acute hypoxemic respiratory failure and worsening toxic metabolic encephalopathy requiring transfer to ICU and intubation. He now remains on mechanical ventilation. The patient was also noted to develop SVT requiring amiodarone drip as well as heparin drip. Patient has now converted back to normal sinus rhythm but remains critically ill. Hospitalist Physical - Constitutional Vitals: Temp Pulse Resp BP Pulse Ox 98.4 F 89 24 96/57 100 09/25/18 09:00 09/25/18 11:30 09/25/18 11:30 09/25/18 11:30 09/25/18 11:30 General appearance: Present: severe distress, other (orally intubated) - EENT Eyes: Present: PERRL, EOM intact ENT: hearing intact, clear oral mucosa, dentition normal - Neck Neck: Present: supple, normal ROM - Respiratory Respiratory effort: normal Respiratory: bilateral: diminished, rhonchi - Cardiovascular Rhythm: regular Heart Sounds: Present: S1 & S2. Absent: gallop, rub - Extremities Extremities: no ischemia, No edema, Full ROM - Abdominal General gastrointestinal: soft, non-tender, non-distended, normal bowel sounds - Integumentary Integumentary: Present: clear, warm, dry - Neurologic Neurologic: other (unresponsive) Results - Labs CBC & Chem 7: 09/25/18 03:45 09/23/18 08:10 Labs: Laboratory Last Values WBC 1.3 K/mm3 (4.5-11.0) L* 09/23/18 08:10 RBC 3.53 M/mm3 (3.65-5.03) L 09/23/18 08:10 Hgb 9.7 gm/dl (11.8-15.2) L 09/25/18 03:45 Hct 29.4 % (35.5-45.6) L 09/25/18 03:45 MCV 85 fl (84-94) 09/23/18 08:10 MCH 28 pg (28-32) 09/23/18 08:10 MCHC 33 % (32-34) 09/23/18 08:10 RDW 14.0 % (13.2-15.2) 09/23/18 08:10 Plt Count 104 K/mm3 (140-440) L 09/25/18 03:45 Cross % (Auto) Carpenter Prototype 09/21/18 04:15 Add Manual Diff Complete 09/21/18 04:15 Total Counted 100 09/21/18 04:15 Seg Neuts % (Manual) 52.0 % (40.0-70.0) 09/21/18 04:15 Band Neutrophils % 18.0 % 09/21/18 04:15 Lymphocytes % (Manual) 16.0 % (13.4-35.0) 09/21/18 04:15 Reactive Lymphs % (Man) 0 % 09/21/18 04:15 Monocytes % (Manual) 12.0 % (0.0-7.3) H 09/21/18 04:15 Eosinophils % (Manual) 0 % (0.0-4.3) 09/21/18 04:15 Basophils % (Manual) 0 % (0.0-1.8) 09/21/18 04:15 Metamyelocytes % 0 % 09/21/18 04:15 Myelocytes % 1.0 % 09/21/18 04:15 Promyelocytes % 1.0 % 09/21/18 04:15 Blast Cells % 0 % 09/21/18 04:15 Nucleated RBC % Not Reportable 09/21/18 04:15 Seg Neutrophils # Man 1.6 K/mm3 (1.8-7.7) L 09/21/18 04:15 Band Neutrophils # 0.6 K/mm3 09/21/18 04:15 Abs Lymphs (Manual) 309 cells/uL (850-3900) L 09/13/18 12:29 Lymphocytes # (Manual) 0.5 K/mm3 (1.2-5.4) L 09/21/18 04:15 Abs React Lymphs (Man) 0.0 K/mm3 09/21/18 04:15 Monocytes # (Manual) 0.4 K/mm3 (0.0-0.8) 09/21/18 04:15 Eosinophils # (Manual) 0.0 K/mm3 (0.0-0.4) 09/21/18 04:15 Basophils # (Manual) 0.0 K/mm3 (0.0-0.1) 09/21/18 04:15 Metamyelocytes # 0.0 K/mm3 09/21/18 04:15 Myelocytes # 0.0 K/mm3 09/21/18 04:15 Promyelocytes # 0.0 K/mm3 09/21/18 04:15 Blast Cells # 0.0 K/mm3 09/21/18 04:15 WBC Morphology Not Reportable 09/21/18 04:15 Hypersegmented Neuts Not Reportable 09/21/18 04:15 Hyposegmented Neuts Not Reportable 09/21/18 04:15 Hypogranular Neuts Not Reportable 09/21/18 04:15 Smudge Cells Not Reportable 09/21/18 04:15 Toxic Granulation Not Reportable 09/21/18 04:15 Toxic Vacuolation Not Reportable 09/21/18 04:15 Dohle Bodies Not Reportable 09/21/18 04:15 Pelger-Huet Anomaly Not Reportable 09/21/18 04:15 Giovanna Rods Not Reportable 09/21/18 04:15 Platelet Estimate Appears normal 09/21/18 04:15 Clumped Platelets Not Reportable 09/21/18 04:15 Plt Clumps, EDTA Not Reportable 09/21/18 04:15 Large Platelets Not Reportable 09/21/18 04:15 Giant Platelets Not Reportable 09/21/18 04:15 Platelet Satelliting Not Reportable 09/21/18 04:15 Plt Morphology Comment Not Reportable 09/21/18 04:15 RBC Morphology Not Reportable 09/21/18 04:15 Dimorphic RBCs Not Reportable 09/21/18 04:15 Polychromasia Not Reportable 09/21/18 04:15 Hypochromasia 1+ 09/21/18 04:15 Poikilocytosis Not Reportable 09/21/18 04:15 Anisocytosis 1+ 09/21/18 04:15 Microcytosis Few 09/21/18 04:15 Macrocytosis Not Reportable 09/21/18 04:15 Spherocytes Not Reportable 09/21/18 04:15 Pappenheimer Bodies Not Reportable 09/21/18 04:15 Sickle Cells Not Reportable 09/21/18 04:15 Target Cells Rare 09/21/18 04:15 Tear Drop Cells Not Reportable 09/21/18 04:15 Ovalocytes 1+ 09/21/18 04:15 Stomatocytes Few 09/21/18 04:15 Helmet Cells Not Reportable 09/21/18 04:15 [place]-Zuehl Bodies Not Reportable 09/21/18 04:15 [place] Rings Not Reportable 09/21/18 04:15 [place] Cells Not Reportable 09/21/18 04:15 Bite Cells Not Reportable 09/21/18 04:15 Crenated Cell Not Reportable 09/21/18 04:15 Elliptocytes Few 09/21/18 04:15 Acanthocytes (Spur) Not Reportable 09/21/18 04:15 Rouleaux Not Reportable 09/21/18 04:15 Hemoglobin C Crystals Not Reportable 09/21/18 04:15 Schistocytes Not Reportable 09/21/18 04:15 Malaria parasites Not Reportable 09/21/18 04:15 Kieran Bodies Not Reportable 09/21/18 04:15 Hem Pathologist Commnt No 09/21/18 04:15 PT 19.9 Sec. (12.2-14.9) H 09/21/18 15:00 INR 1.65 (0.87-1.13) H 09/21/18 15:00 APTT 40.9 Sec. (24.2-36.6) H 09/21/18 15:00 Heparin Anti-Xa Level 0.65 U.I./ml (0.3-0.7) 09/24/18 22:29 POC ABG pH 7.460 (7.35-7.45) H 09/25/18 04:24 POC ABG pCO2 32.9 (35-45) L 09/25/18 04:24 POC ABG pO2 88 (80-105) 09/25/18 04:24 POC ABG HCO3 23.4 09/25/18 04:24 POC ABG Total CO2 24 09/25/18 04:24 POC ABG O2 Sat 97 09/25/18 04:24 POC ABG Base Excess 0 09/25/18 04:24 FiO2 30 % 09/25/18 04:24 Sodium 140 mmol/L (137-145) 09/23/18 08:10 Potassium 3.8 mmol/L (3.6-5.0) 09/23/18 08:10 Chloride 105.7 mmol/L (98-107) 09/23/18 08:10 Carbon Dioxide 24 mmol/L (22-30) 09/23/18 08:10 Anion Gap 14 mmol/L 09/23/18 08:10 BUN 19 mg/dL (9-20) 09/23/18 08:10 Creatinine 1.2 mg/dL (0.8-1.5) 09/23/18 08:10 Estimated GFR > 60 ml/min 09/23/18 08:10 BUN/Creatinine Ratio 16 % 09/23/18 08:10 Glucose 122 mg/dL (75-100) H 09/23/18 08:10 POC Glucose 97 (70-105) 09/25/18 05:49 Lactic Acid 0.90 mmol/L (0.7-2.0) 09/11/18 20:17 Calcium 6.9 mg/dL (8.4-10.2) L 09/23/18 08:10 Magnesium 2.10 mg/dL (1.7-2.3) 09/21/18 10:07 Total Bilirubin 0.30 mg/dL (0.1-1.2) 09/21/18 10:07 Direct Bilirubin < 0.2 mg/dL (0-0.2) 09/13/18 07:31 AST 94 units/L (5-40) H 09/21/18 10:07 ALT 28 units/L (7-56) 09/21/18 10:07 Alkaline Phosphatase 57 units/L (35-129) 09/21/18 10:07 Ammonia 47.0 umol/L (25-60) 09/16/18 11:41 Total Creatine Kinase 685 units/L (55-170) H 09/21/18 04:25 CK-MB (CK-2) 3.5 ng/mL (0.0-4.0) 09/21/18 04:25 CK-MB (CK-2) Rel Index 0.5 (0-4) 09/21/18 04:25 NT-Pro-B Natriuret Pep 145.9 pg/mL (0-450) 09/18/18 16:07 Total Protein 6.8 g/dL (6.3-8.2) 09/21/18 10:07 Albumin 2.8 g/dL (3.9-5) L 09/21/18 10:07 Albumin/Globulin Ratio 0.7 % 09/21/18 10:07 Vitamin B12 934.5 pg/mL (211-911) H 09/16/18 11:41 TSH 5.190 mlU/mL (0.270-4.200) H 09/18/18 12:46 Free T4 0.75 ng/dL (0.76-1.46) L 09/18/18 12:46 Urine Color [place] (Yellow) 09/11/18 Unknown Urine Turbidity Clear (Clear) 09/11/18 Unknown Urine pH 5.0 (5.0-7.0) 09/11/18 Unknown Ur Specific [place] 1.016 (1.003-1.030) 09/11/18 Unknown Urine Protein <15 mg/dl mg/dL (Negative) 09/11/18 Unknown Urine Glucose (UA) Neg mg/dL (Negative) 09/11/18 Unknown Urine Ketones Neg mg/dL (Negative) 09/11/18 Unknown Urine Blood Sm (Negative) 09/11/18 Unknown Urine Nitrite Neg (Negative) 09/11/18 Unknown Urine Bilirubin Neg (Negative) 09/11/18 Unknown Urine Urobilinogen < 2.0 mg/dL (<2.0) 09/11/18 Unknown Ur Leukocyte Esterase Neg (Negative) 09/11/18 Unknown Urine WBC (Auto) 1.0 /HPF (0.0-6.0) 09/11/18 Unknown Urine RBC (Auto) 3.0 /HPF (0.0-6.0) 09/11/18 Unknown Urine Mucus Few /HPF 09/11/18 Unknown CSF Appearance Clear 09/19/18 15:00 CSF Color Colorless 09/19/18 15:00 CSF WBC 4 /mm3 (1-10) 09/19/18 15:00 CSF RBC 583 /mm3 (0-0) 09/19/18 15:00 CSF Seg Neutrophils 21.4 % (0-6) 09/19/18 15:00 CSF Lymphocytes % 71.4 % (40-80) 09/19/18 15:00 CSF Reactive Lymphs 0 % 09/19/18 15:00 CSF Monocytes % 7.1 % (15-45) 09/19/18 15:00 CSF Eosinophils % 0 % 09/19/18 15:00 CSF Basophils 0 % 09/19/18 15:00 CSF Pathologist Review C 09/19/18 15:00 CSF Glucose 32 mg/dL 09/19/18 15:00 CSF Total Protein 123 mg/dL 09/19/18 15:00 CSF VDRL Reactive 1:4 (Nonreactive) H 09/19/18 15:00 Urine Opiates Screen Presumptive negative 09/17/18 15:52 Urine Methadone Screen Presumptive negative 09/17/18 15:52 Ur Barbiturates Screen Presumptive negative 09/17/18 15:52 Ur Phencyclidine Scrn Presumptive negative 09/17/18 15:52 Ur Amphetamines Screen Presumptive negative 09/17/18 15:52 U Benzodiazepines Scrn Presumptive negative 09/17/18 15:52 Urine Cocaine Screen Presumptive negative 09/17/18 15:52 U Marijuana (THC) Screen Presumptive negative 09/17/18 15:52 Drugs of Abuse Note Disclamer 09/17/18 15:52 Lymph Enumerat CD4/CD8 0.01 (0.86-5.00) L 09/13/18 12:29 % CD3 Cells 71 % (57-85) 09/13/18 12:29 Absolute CD3 Count 220 cells/uL (840-3060) L 09/13/18 12:29 % CD4 Cells 1 % (30-61) L 09/13/18 12:29 Absolute CD4 Count 4 cells/uL (490-1740) L 09/13/18 12:29 % CD8 Cells 70 % (12-42) H 09/13/18 12:29 Absolute CD8 Count 216 cells/uL (180-1170) 09/13/18 12:29 % CD19 Cells 17 % (6-29) 09/13/18 12:29 Absolute CD19 Count 54 cells/uL (110-660) L 09/13/18 12:29 RPR Titer 1:16 09/13/18 12:29 RPR Reactive (Nonreactive) 09/13/18 12:29 T.pallidum Ab (FTA-ABS) Reactive (Nonreactive) H 09/14/18 16:34 C. difficile Toxin A&B Negative (Negative) 09/12/18 05:30 CMV DNA PCR log copper plate printer/mL See scanned result 09/16/18 12:03 Hepatitis A IgM Ab Non-reactive (NonReactive) 09/13/18 12:29 Hep Bs Antigen Non-reactive (Negative) 09/13/18 12:29 Hep B Core IgM Ab Non-reactive (NonReactive) 09/13/18 12:29 Hepatitis C Antibody Non-reactive (NonReactive) 09/13/18 12:29 HIV-1 Antibody See scanned result 09/11/18 19:14 HIV-1 RNA PCR copies/ml 34495 Copies/mL H 09/13/18 12:29 HIV-1 RNA (PCR) log 4.71 Log cps/mL H 09/13/18 12:29 HIV-2 Ab (Immunoblot) See scanned result 09/11/18 19:14 HIV 1&2 Antibody Rapid Reactive (Non React) 09/11/18 19:14 HIV P24 Antigen Non react (Non React) 09/11/18 19:14 Influenza A (Rapid) Negative (Negative) 09/13/18 16:05 Influenza A (RT-PCR) Negative (Negative) 09/13/18 16:05 Influenza B (Rapid) Negative (Negative) 09/13/18 16:05 Influenza B (RT-PCR) Negative (Negative) 09/13/18 16:05 Toxoplasma IgG Ab <7.20 IU/mL (<7.20) 09/16/18 12:09 Miscellaneous Test see below 09/21/18 03:55 Nutrition/Malnutrition Assess - Dietary Evaluation Nutrition/Malnutrition Findings: Nutrition Notes Start: 09/12/18 17:45 Freq: Status: Active Protocol: Document 09/23/18 10:40 TW (Rec: 09/23/18 10:57 TW [id number]) Co-Sign 09/23/18 10:40 OL Nutrition Notes Initial or Follow up Reassessment Current Diagnosis Sepsis Other Pertinent Diagnosis Newly dx HIV, Bilat pneu Current Diet Osmolite 1.5 at 50mL/hr Labs/Tests BUN 27 Cr 2 Pertinent Medications Reviewed Height 6 ft Weight 103.6 kg [place] Body Weight (kg) 80.90 BMI 30.9 Subjective/Other Information F/U for TF tolerance/ need for TF change. Noted TF running at goal (60mL/hr). Per RN pt is tolerating TF well. Percent of energy/protein needs met: 100%/55% Burn Absent Trauma Absent #2 Nutrition Diagnosis Inadequate oral intake Etiology vent status As Evidenced by Signs and Symptoms pt requiring EN #1 Nutrition Diagnosis Malnutrition Diagnosis Progress(for reassessment Continues documentation) Is patient on ventilator? Yes Is Patient Ambulatory and/or Out of Bed No REE-(Morrill-St. Jeor-confined to bed) 2424.720 Kcal/Kg value to use for calculation 14 Approximate Energy Requirements Using 1450 kcal/Kg Calculation Used for Recommendations Kcal/kg Additional Notes Pro needs 162g/day (2g/kg IBW) Fluid needs 1ml/kcal Nutrition Intervention Change Diet Order: Continue TF Nutrition Support: Vital HP at 60mL/hr Water flush of 50mL q4h Kcal 1,440 Protein (gm) 126 Fluid (mL) 1,204 Goal #1 Meet 75-100% of nutrient needs via PO intake Anticipated Discharge Needs: Unable to determine at this time Follow-Up By: 09/26/18 Additional Comments F/U: TF tolerance
--- NOTE | 2018-09-25 14:44 | Progress Note ---
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 He is MSM - CD4=4 - VL=50,700 Elevated LFTs: resolved Neutropenia/thrombocytopenia -VAP bundle addressed - continue supplemental oxygen to keep sats > 90% - continue bronchodilators with pulmonary -Continue empiric and targeted anti-infective's per ID recs - continue daily SBT's as tolerated. Gentle diuresis as tolerated by renal function and hemodynamics to facilitate liberation from mechanical ventilatory support - continue Amiodarone and heparin infusion per Cardiology recommendation. If anticoagulation is not needed, will start VTE prophylaxis dosing - diarrhea improving - monitor for drug-drug interactions - continue enteral nutrition as tolerated - PT/OT/ROM exercises as tolerated - mobility protocol for pressure ulcer prevention - continue GI prophylaxis -critical care bundles addressed -king catheter in this critically ill patient with acute urinary retention ,requiring strict intake and output monitoring - continue other care per attending / other consultants CONDITION: CRITICAL PROGNOSIS: GUARDED CODE STATUS: FULL CODE The high probability of a clinically significant, sudden or life threatening deterioration of the [cardiac, respiratory and neurologic] system(s) required my full and direct attention, intervention and personal management. The aggregate critical care time was [35] minutes. This time is in addition to time spent performing reported procedures but includes the following: [x] Data Review and interpretation [x] Patient assessment and monitoring of vital signs [x] Documentation [x] Medication orders and management Subjective Date of service: 09/25/18 Principal diagnosis: elevated LFTs/abnormal CT Interval history: 33 y/o male with no PMH; admitted on 09/11/2018 due to 4 days-AMS/behavioral changes, nausea, voimiting, diarrhea, weight loss and cough: Patient is seen today for: Severe sepsis (present on admission with fever, tachycardia, hypotension and elevated lactate); Acute hypoxemic Respiratory failure; Bilateral pneumonia; Acute encephalopathy (Toxic / Metabolic); Atrial Fibrillation with RVR Seen and examined at bedside; 24hour events reviewed; nursing and respiratory care staff consulted; events overnight events reported to me, acute urinary retention with need for placement of urinary catheter; lying in bed; no emesis or overt aspiration; no seizures reported, obeying one step commands, inconsistently. Objective Vital Signs - 12hr 09/25/18 09/25/18 09/25/18 03:00 03:15 03:30 Temperature Pulse Rate 87 93 H 94 H Pulse Rate [ From Monitor] Pulse Rate [ Throughout] Respiratory 27 H 27 H Rate Respiratory Rate [ Throughout] Blood Pressure 112/60 112/60 95/64 O2 Sat by Pulse 98 99 Oximetry 09/25/18 09/25/18 09/25/18 03:37 04:00 04:30 Temperature 99.1 F Pulse Rate 94 H 91 H 92 H Pulse Rate [ 91 H From Monitor] Pulse Rate [ Throughout] Respiratory 28 H 26 H Rate Respiratory Rate [ Throughout] Blood Pressure 95/64 111/65 107/63 O2 Sat by Pulse 99 100 99 Oximetry 09/25/18 09/25/18 09/25/18 05:00 05:30 06:00 Temperature Pulse Rate 87 87 88 Pulse Rate [ From Monitor] Pulse Rate [ Throughout] Respiratory 26 H 23 27 H Rate Respiratory Rate [ Throughout] Blood Pressure 101/68 105/63 107/65 O2 Sat by Pulse 98 100 100 Oximetry 09/25/18 09/25/18 09/25/18 06:30 07:00 07:30 Temperature Pulse Rate 86 88 85 Pulse Rate [ From Monitor] Pulse Rate [ Throughout] Respiratory 23 24 18 Rate Respiratory Rate [ Throughout] Blood Pressure 123/62 110/60 112/70 O2 Sat by Pulse 99 100 99 Oximetry 09/25/18 09/25/18 09/25/18 08:00 08:30 08:59 Temperature 98.4 F Pulse Rate 88 99 H 90 Pulse Rate [ 88 From Monitor] Pulse Rate [ Throughout] Respiratory 29 H 18 26 H Rate Respiratory Rate [ Throughout] Blood Pressure 110/66 125/57 117/68 O2 Sat by Pulse 99 97 99 Oximetry 09/25/18 09/25/18 09/25/18 09:00 09:12 09:19 Temperature 98.4 F Pulse Rate 90 Pulse Rate [ From Monitor] Pulse Rate [ 105 H 100 H Throughout] Respiratory 27 H Rate Respiratory 26 H 30 H Rate [ Throughout] Blood Pressure 117/68 O2 Sat by Pulse 99 Oximetry 09/25/18 09/25/18 09/25/18 09:30 09:54 10:00 Temperature Pulse Rate 89 95 H 90 Pulse Rate [ From Monitor] Pulse Rate [ Throughout] Respiratory 25 H 27 H Rate Respiratory Rate [ Throughout] Blood Pressure 117/59 112/57 111/63 O2 Sat by Pulse 99 100 Oximetry 09/25/18 09/25/18 09/25/18 10:30 11:00 11:30 Temperature Pulse Rate 90 90 89 Pulse Rate [ From Monitor] Pulse Rate [ Throughout] Respiratory 29 H 27 H 24 Rate Respiratory Rate [ Throughout] Blood Pressure 106/57 98/57 96/57 O2 Sat by Pulse 100 100 100 Oximetry 09/25/18 09/25/18 09/25/18 12:00 12:30 12:34 Temperature Pulse Rate 86 87 88 Pulse Rate [ 93 H From Monitor] Pulse Rate [ Throughout] Respiratory 27 H 26 H 26 H Rate Respiratory Rate [ Throughout] Blood Pressure 106/60 106/58 106/58 O2 Sat by Pulse 100 100 100 Oximetry 09/25/18 09/25/18 12:46 13:00 Temperature 98.1 F Pulse Rate 86 Pulse Rate [ From Monitor] Pulse Rate [ Throughout] Respiratory 25 H Rate Respiratory Rate [ Throughout] Blood Pressure 105/57 O2 Sat by Pulse 100 Oximetry Constitutional: lethargic, agitated, appears uncomfortable, other (orally intubated ETT at 23cm) Eyes: non-icteric ENT: oropharynx moist Neck: supple, no lymphadenopathy Effort: mildly labored Ascultation: Bilateral: rales, rhonchi Percussion: Bilateral: not dull Cardiovascular: regular rate and rhythm, other (S1,S2, no murmurs, gallps or rubs) Gastrointestinal: normoactive bowel sounds, soft Integumentary: normal Extremities: no cyanosis, edema Neurologic: pupils equal and round, motor strength normal and (weak though) Psychiatric: other (unable to assess) CBC and BMP: 09/25/18 03:45 09/23/18 08:10 ABG, PT/INR, D-dimer: ABG POC ABG pH 7.460 (7.35-7.45) H 09/25/18 04:24 POC ABG pCO2 32.9 (35-45) L 09/25/18 04:24 POC ABG pO2 88 (80-105) 09/25/18 04:24 POC ABG HCO3 23.4 09/25/18 04:24 POC ABG Total CO2 24 09/25/18 04:24 POC ABG O2 Sat 97 09/25/18 04:24 PT/INR, D-dimer PT 19.9 Sec. (12.2-14.9) H 09/21/18 15:00 INR 1.65 (0.87-1.13) H 09/21/18 15:00 Abnormal lab findings: Abnormal Labs 09/11/18 09/11/18 09/11/18 18:00 18:00 18:00 WBC 1.9 L* RBC Hgb Hct Plt Count 130 L Monocytes % (Manual) 16.0 H Seg Neutrophils # Man 0.9 L Abs Lymphs (Manual) Lymphocytes # (Manual) 0.5 L PT INR APTT Heparin Anti-Xa Level POC ABG pH POC ABG pCO2 POC ABG pO2 Sodium 131 L Potassium Chloride Carbon Dioxide 17 L BUN 21 H Creatinine Glucose 126 H POC Glucose Lactic Acid 2.60 H* Calcium 8.1 L AST 123 H ALT 115 H Total Creatine Kinase Total Protein Albumin 3.0 L Vitamin B12 TSH Free T4 CSF VDRL Lymph Enumerat CD4/CD8 Absolute CD3 Count % CD4 Cells Absolute CD4 Count % CD8 Cells Absolute CD19 Count T.pallidum Ab (FTA-ABS) HIV-1 RNA PCR copies/ml HIV-1 RNA (PCR) log Miscellaneous Test 09/11/18 09/13/18 09/13/18 19:01 04:28 07:31 WBC 2.0 L RBC Hgb Hct Plt Count 116 L Monocytes % (Manual) 8.0 H Seg Neutrophils # Man 1.0 L Abs Lymphs (Manual) Lymphocytes # (Manual) 0.5 L PT INR APTT Heparin Anti-Xa Level POC ABG pH POC ABG pCO2 POC ABG pO2 Sodium Potassium Chloride 110.4 H Carbon Dioxide 19 L BUN Creatinine Glucose POC Glucose Lactic Acid 3.70 H* Calcium 7.9 L AST ALT Total Creatine Kinase Total Protein Albumin Vitamin B12 TSH Free T4 CSF VDRL Lymph Enumerat CD4/CD8 Absolute CD3 Count % CD4 Cells Absolute CD4 Count % CD8 Cells Absolute CD19 Count T.pallidum Ab (FTA-ABS) HIV-1 RNA PCR copies/ml HIV-1 RNA (PCR) log Miscellaneous Test 09/13/18 09/13/1809/13/19 07:31 12:29 12:29 WBC RBC Hgb Hct Plt Count Monocytes % (Manual) Seg Neutrophils # Man Abs Lymphs (Manual) 309 L Lymphocytes # (Manual) PT INR APTT Heparin Anti-Xa Level POC ABG pH POC ABG pCO2 POC ABG pO2 Sodium Potassium Chloride Carbon Dioxide BUN Creatinine Glucose POC Glucose Lactic Acid Calcium AST 70 H ALT 68 H Total Creatine Kinase Total Protein Albumin 2.5 L Vitamin B12 TSH Free T4 CSF VDRL Lymph Enumerat CD4/CD8 0.01 L Absolute CD3 Count 220 L % CD4 Cells 1 L Absolute CD4 Count 4 L % CD8 Cells 70 H Absolute CD19 Count 54 L T.pallidum Ab (FTA-ABS) HIV-1 RNA PCR copies/ml 32375 H HIV-1 RNA (PCR) log 4.71 H Miscellaneous Test 09/14/18 09/14/18 09/15/18 07:17 16:34 05:05 WBC 1.6 L* RBC Hgb 10.4 L Hct 31.1 L D Plt Count 113 L Monocytes % (Manual) Seg Neutrophils # Man Abs Lymphs (Manual) Lymphocytes # (Manual) PT INR APTT Heparin Anti-Xa Level POC ABG pH POC ABG pCO2 POC ABG pO2 Sodium Potassium 3.4 L Chloride Carbon Dioxide 18 L BUN Creatinine Glucose 104 H POC Glucose Lactic Acid Calcium 7.6 L AST 49 H ALT Total Creatine Kinase Total Protein Albumin 2.5 L Vitamin B12 TSH Free T4 CSF VDRL Lymph Enumerat CD4/CD8 Absolute CD3 Count % CD4 Cells Absolute CD4 Count % CD8 Cells Absolute CD19 Count T.pallidum Ab (FTA-ABS) Reactive H HIV-1 RNA PCR copies/ml HIV-1 RNA (PCR) log Miscellaneous Test 09/15/18 09/15/18 09/16/18 05:05 Unknown 06:55 WBC 2.8 L RBC Hgb 10.9 L Hct 33.5 L Plt Count 135 L Monocytes % (Manual) Seg Neutrophils # Man Abs Lymphs (Manual) Lymphocytes # (Manual) PT INR APTT Heparin Anti-Xa Level POC ABG pH POC ABG pCO2 POC ABG pO2 Sodium Potassium Chloride 107.9 H Carbon Dioxide 18 L BUN 6 L Creatinine Glucose POC Glucose Lactic Acid Calcium 7.4 L AST ALT Total Creatine Kinase Total Protein Albumin Vitamin B12 TSH Free T4 CSF VDRL Reactive 1:8 H Lymph Enumerat CD4/CD8 Absolute CD3 Count % CD4 Cells Absolute CD4 Count % CD8 Cells Absolute CD19 Count T.pallidum Ab (FTA-ABS) HIV-1 RNA PCR copies/ml HIV-1 RNA (PCR) log Miscellaneous Test 09/16/18 09/16/18 09/16/18 11:41 11:41 11:41 WBC RBC Hgb Hct Plt Count Monocytes % (Manual) Seg Neutrophils # Man Abs Lymphs (Manual) Lymphocytes # (Manual) PT INR APTT Heparin Anti-Xa Level POC ABG pH POC ABG pCO2 POC ABG pO2 Sodium Potassium Chloride Carbon Dioxide BUN Creatinine Glucose POC Glucose Lactic Acid Calcium AST ALT Total Creatine Kinase Total Protein Albumin Vitamin B12 934.5 H TSH 4.210 H Free T4 0.72 L CSF VDRL Lymph Enumerat CD4/CD8 Absolute CD3 Count % CD4 Cells Absolute CD4 Count % CD8 Cells Absolute CD19 Count T.pallidum Ab (FTA-ABS) HIV-1 RNA PCR copies/ml HIV-1 RNA (PCR) log Miscellaneous Test 09/16/18 09/17/18 09/17/18 15:43 05:13 05:13 WBC 2.0 L RBC Hgb 10.9 L Hct 32.7 L Plt Count Monocytes % (Manual) Seg Neutrophils # Man Abs Lymphs (Manual) Lymphocytes # (Manual) PT INR APTT Heparin Anti-Xa Level POC ABG pH POC ABG pCO2 29.3 L POC ABG pO2 70 L Sodium Potassium Chloride 107.2 H Carbon Dioxide 21 L BUN 3 L Creatinine 0.7 L Glucose POC Glucose Lactic Acid Calcium 7.9 L AST ALT Total Creatine Kinase Total Protein 6.1 L Albumin 2.6 L Vitamin B12 TSH Free T4 CSF VDRL Lymph Enumerat CD4/CD8 Absolute CD3 Count % CD4 Cells Absolute CD4 Count % CD8 Cells Absolute CD19 Count T.pallidum Ab (FTA-ABS) HIV-1 RNA PCR copies/ml HIV-1 RNA (PCR) log Miscellaneous Test 09/17/18 09/18/18 09/18/18 21:57 12:46 12:46 WBC RBC Hgb Hct Plt Count Monocytes % (Manual) Seg Neutrophils # Man Abs Lymphs (Manual) Lymphocytes # (Manual) PT INR APTT Heparin Anti-Xa Level POC ABG pH POC ABG pCO2 POC ABG pO2 Sodium Potassium Chloride Carbon Dioxide BUN Creatinine Glucose POC Glucose 108 H Lactic Acid Calcium AST ALT Total Creatine Kinase Total Protein Albumin Vitamin B12 TSH 5.190 H Free T4 0.75 L CSF VDRL Lymph Enumerat CD4/CD8 Absolute CD3 Count % CD4 Cells Absolute CD4 Count % CD8 Cells Absolute CD19 Count T.pallidum Ab (FTA-ABS) HIV-1 RNA PCR copies/ml HIV-1 RNA (PCR) log Miscellaneous Test 09/19/18 09/19/18 09/19/18 04:57 04:57 15:00 WBC 2.1 L RBC Hgb 11.4 L Hct 34.2 L Plt Count Monocytes % (Manual) Seg Neutrophils # Man Abs Lymphs (Manual) Lymphocytes # (Manual) PT INR APTT Heparin Anti-Xa Level POC ABG pH POC ABG pCO2 POC ABG pO2 Sodium Potassium Chloride Carbon Dioxide 19 L BUN 6 L Creatinine Glucose POC Glucose Lactic Acid Calcium 7.9 L AST ALT Total Creatine Kinase Total Protein Albumin Vitamin B12 TSH Free T4 CSF VDRL Lymph Enumerat CD4/CD8 Absolute CD3 Count % CD4 Cells Absolute CD4 Count % CD8 Cells Absolute CD19 Count T.pallidum Ab (FTA-ABS) HIV-1 RNA PCR copies/ml HIV-1 RNA (PCR) log Miscellaneous Test Flexitest 1 H 09/19/18 09/20/18 09/20/18 15:00 05:33 06:52 WBC 2.5 L RBC Hgb Hct Plt Count Monocytes % (Manual) Seg Neutrophils # Man Abs Lymphs (Manual) Lymphocytes # (Manual) PT INR APTT Heparin Anti-Xa Level POC ABG pH POC ABG pCO2 POC ABG pO2 Sodium 136 L Potassium Chloride Carbon Dioxide 19 L BUN 7 L Creatinine Glucose POC Glucose Lactic Acid Calcium AST ALT Total Creatine Kinase Total Protein Albumin Vitamin B12 TSH Free T4 CSF VDRL Reactive 1:4 H Lymph Enumerat CD4/CD8 Absolute CD3 Count % CD4 Cells Absolute CD4 Count % CD8 Cells Absolute CD19 Count T.pallidum Ab (FTA-ABS) HIV-1 RNA PCR copies/ml HIV-1 RNA (PCR) log Miscellaneous Test 09/21/18 09/21/18 09/21/18 01:06 03:49 04:15 WBC 3.1 L RBC Hgb 11.6 L Hct Plt Count Monocytes % (Manual) 12.0 H Seg Neutrophils # Man 1.6 L Abs Lymphs (Manual) Lymphocytes # (Manual) 0.5 L PT INR APTT Heparin Anti-Xa Level POC ABG pH 7.159 L POC ABG pCO2 32.9 L 70.0 H POC ABG pO2 62 L 254 H Sodium Potassium Chloride Carbon Dioxide BUN Creatinine Glucose POC Glucose Lactic Acid Calcium AST ALT Total Creatine Kinase Total Protein Albumin Vitamin B12 TSH Free T4 CSF VDRL Lymph Enumerat CD4/CD8 Absolute CD3 Count % CD4 Cells Absolute CD4 Count % CD8 Cells Absolute CD19 Count T.pallidum Ab (FTA-ABS) HIV-1 RNA PCR copies/ml HIV-1 RNA (PCR) log Miscellaneous Test 09/21/18 09/21/18 09/21/18 04:15 04:25 09:59 WBC RBC Hgb Hct Plt Count Monocytes % (Manual) Seg Neutrophils # Man Abs Lymphs (Manual) Lymphocytes # (Manual) PT INR APTT Heparin Anti-Xa Level POC ABG pH 7.301 L POC ABG pCO2 POC ABG pO2 109 H Sodium Potassium 6.1 H* D Chloride Carbon Dioxide 19 L BUN Creatinine Glucose 108 H POC Glucose Lactic Acid Calcium AST ALT Total Creatine Kinase 685 H Total Protein Albumin Vitamin B12 TSH Free T4 CSF VDRL Lymph Enumerat CD4/CD8 Absolute CD3 Count % CD4 Cells Absolute CD4 Count % CD8 Cells Absolute CD19 Count T.pallidum Ab (FTA-ABS) HIV-1 RNA PCR copies/ml HIV-1 RNA (PCR) log Miscellaneous Test 09/21/18 09/21/18 09/21/18 10:07 11:00 15:00 WBC RBC Hgb 11.7 L Hct Plt Count Monocytes % (Manual) Seg Neutrophils # Man Abs Lymphs (Manual) Lymphocytes # (Manual) PT 19.9 H INR 1.65 H APTT 40.9 H Heparin Anti-Xa Level POC ABG pH POC ABG pCO2 POC ABG pO2 Sodium Potassium 6.5 H* Chloride Carbon Dioxide 18 L BUN Creatinine 2.1 H D Glucose POC Glucose Lactic Acid Calcium 8.1 L AST 94 H ALT Total Creatine Kinase Total Protein Albumin 2.8 L Vitamin B12 TSH Free T4 CSF VDRL Lymph Enumerat CD4/CD8 Absolute CD3 Count % CD4 Cells Absolute CD4 Count % CD8 Cells Absolute CD19 Count T.pallidum Ab (FTA-ABS) HIV-1 RNA PCR copies/ml HIV-1 RNA (PCR) log Miscellaneous Test 09/21/18 09/21/1809/21/19 21:54 21:54 22:57 WBC RBC Hgb Hct Plt Count Monocytes % (Manual) Seg Neutrophils # Man Abs Lymphs (Manual) Lymphocytes # (Manual) PT INR APTT Heparin Anti-Xa Level 0.98 H POC ABG pH POC ABG pCO2 POC ABG pO2 Sodium Potassium 5.2 H Chloride Carbon Dioxide BUN Creatinine Glucose POC Glucose 124 H Lactic Acid Calcium AST ALT Total Creatine Kinase Total Protein Albumin Vitamin B12 TSH Free T4 CSF VDRL Lymph Enumerat CD4/CD8 Absolute CD3 Count % CD4 Cells Absolute CD4 Count % CD8 Cells Absolute CD19 Count T.pallidum Ab (FTA-ABS) HIV-1 RNA PCR copies/ml HIV-1 RNA (PCR) log Miscellaneous Test 09/22/18 09/22/18 09/22/18 03:01 05:27 07:00 WBC 1.8 L* RBC 3.59 L Hgb 10.1 L Hct 30.8 L Plt Count 126 L Monocytes % (Manual) Seg Neutrophils # Man Abs Lymphs (Manual) Lymphocytes # (Manual) PT INR APTT Heparin Anti-Xa Level POC ABG pH POC ABG pCO2 32.7 L POC ABG pO2 Sodium Potassium Chloride Carbon Dioxide BUN Creatinine Glucose POC Glucose 128 H Lactic Acid Calcium AST ALT Total Creatine Kinase Total Protein Albumin Vitamin B12 TSH Free T4 CSF VDRL Lymph Enumerat CD4/CD8 Absolute CD3 Count % CD4 Cells Absolute CD4 Count % CD8 Cells Absolute CD19 Count T.pallidum Ab (FTA-ABS) HIV-1 RNA PCR copies/ml HIV-1 RNA (PCR) log Miscellaneous Test 09/22/18 09/22/18 09/22/18 07:00 11:32 15:52 WBC RBC Hgb Hct Plt Count Monocytes % (Manual) Seg Neutrophils # Man Abs Lymphs (Manual) Lymphocytes # (Manual) PT INR APTT Heparin Anti-Xa Level POC ABG pH POC ABG pCO2 48.7 H POC ABG pO2 Sodium Potassium Chloride Carbon Dioxide BUN 27 H Creatinine 2.0 H Glucose 128 H POC Glucose 123 H Lactic Acid Calcium 6.9 L AST ALT Total Creatine Kinase Total Protein Albumin Vitamin B12 TSH Free T4 CSF VDRL Lymph Enumerat CD4/CD8 Absolute CD3 Count % CD4 Cells Absolute CD4 Count % CD8 Cells Absolute CD19 Count T.pallidum Ab (FTA-ABS) HIV-1 RNA PCR copies/ml HIV-1 RNA (PCR) log Miscellaneous Test 09/22/18 09/22/18 09/23/18 18:18 23:52 04:10 WBC RBC Hgb Hct Plt Count Monocytes % (Manual) Seg Neutrophils # Man Abs Lymphs (Manual) Lymphocytes # (Manual) PT INR APTT Heparin Anti-Xa Level POC ABG pH POC ABG pCO2 POC ABG pO2 144 H Sodium Potassium Chloride Carbon Dioxide BUN Creatinine Glucose POC Glucose 110 H 124 H Lactic Acid Calcium AST ALT Total Creatine Kinase Total Protein Albumin Vitamin B12 TSH Free T4 CSF VDRL Lymph Enumerat CD4/CD8 Absolute CD3 Count % CD4 Cells Absolute CD4 Count % CD8 Cells Absolute CD19 Count T.pallidum Ab (FTA-ABS) HIV-1 RNA PCR copies/ml HIV-1 RNA (PCR) log Miscellaneous Test 09/23/18 09/23/18 09/23/18 05:55 05:55 08:10 WBC 1.3 L* RBC 3.53 L Hgb 10.0 L 9.9 L Hct 30.3 L 30.0 L Plt Count 117 L 119 L Monocytes % (Manual) Seg Neutrophils # Man Abs Lymphs (Manual) Lymphocytes # (Manual) PT INR APTT Heparin Anti-Xa Level 0.26 L POC ABG pH POC ABG pCO2 POC ABG pO2 Sodium Potassium Chloride Carbon Dioxide BUN Creatinine Glucose POC Glucose Lactic Acid Calcium AST ALT Total Creatine Kinase Total Protein Albumin Vitamin B12 TSH Free T4 CSF VDRL Lymph Enumerat CD4/CD8 Absolute CD3 Count % CD4 Cells Absolute CD4 Count % CD8 Cells Absolute CD19 Count T.pallidum Ab (FTA-ABS) HIV-1 RNA PCR copies/ml HIV-1 RNA (PCR) log Miscellaneous Test 09/23/18 09/23/18 09/24/18 08:10 23:57 12:04 WBC RBC Hgb Hct Plt Count Monocytes % (Manual) Seg Neutrophils # Man Abs Lymphs (Manual) Lymphocytes # (Manual) PT INR APTT Heparin Anti-Xa Level POC ABG pH POC ABG pCO2 POC ABG pO2 Sodium Potassium Chloride Carbon Dioxide BUN Creatinine Glucose 122 H POC Glucose 115 H 111 H Lactic Acid Calcium 6.9 L AST ALT Total Creatine Kinase Total Protein Albumin Vitamin B12 TSH Free T4 CSF VDRL Lymph Enumerat CD4/CD8 Absolute CD3 Count % CD4 Cells Absolute CD4 Count % CD8 Cells Absolute CD19 Count T.pallidum Ab (FTA-ABS) HIV-1 RNA PCR copies/ml HIV-1 RNA (PCR) log Miscellaneous Test 09/24/18 09/24/18 09/25/18 14:42 18:10 03:45 WBC RBC Hgb 9.7 L Hct 29.4 L Plt Count 104 L Monocytes % (Manual) Seg Neutrophils # Man Abs Lymphs (Manual) Lymphocytes # (Manual) PT INR APTT Heparin Anti-Xa Level 0.76 H POC ABG pH POC ABG pCO2 POC ABG pO2 Sodium Potassium Chloride Carbon Dioxide BUN Creatinine Glucose POC Glucose 138 H Lactic Acid Calcium AST ALT Total Creatine Kinase Total Protein Albumin Vitamin B12 TSH Free T4 CSF VDRL Lymph Enumerat CD4/CD8 Absolute CD3 Count % CD4 Cells Absolute CD4 Count % CD8 Cells Absolute CD19 Count T.pallidum Ab (FTA-ABS) HIV-1 RNA PCR copies/ml HIV-1 RNA (PCR) log Miscellaneous Test 09/25/18 04:24 WBC RBC Hgb Hct Plt Count Monocytes % (Manual) Seg Neutrophils # Man Abs Lymphs (Manual) Lymphocytes # (Manual) PT INR APTT Heparin Anti-Xa Level POC ABG pH 7.460 H POC ABG pCO2 32.9 L POC ABG pO2 Sodium Potassium Chloride Carbon Dioxide BUN Creatinine Glucose POC Glucose Lactic Acid Calcium AST ALT Total Creatine Kinase Total Protein Albumin Vitamin B12 TSH Free T4 CSF VDRL Lymph Enumerat CD4/CD8 Absolute CD3 Count % CD4 Cells Absolute CD4 Count % CD8 Cells Absolute CD19 Count T.pallidum Ab (FTA-ABS) HIV-1 RNA PCR copies/ml HIV-1 RNA (PCR) log Miscellaneous Test Chest x-ray: image reviewed Allied health notes reviewed: RT (daily PSV as tolerated)
[2018-09-25 14:53] LABS: Alanine Aminotransferase 481 units/L (7-56); Albumin 1.9 g/dL (3.9-5); BUN/Creatinine Ratio 12; Blood Urea Nitrogen 12 mg/dL (9-20); Calcium 6.7 mg/dL (8.4-10.2); Hemolysis Index 4
--- NOTE | 2018-09-25 14:59 | Progress Note ---
Assessment and Plan - Patient Problems (1) Acute kidney failure with tubular necrosis Current Visit: Yes Status: Acute Plan to address problem: Acute tubular necrosis secondary to sepsis has improved. Concerned about worsening on ganciclovir. Kidney function stable so far. Monitor kidney function and electrolytes closely. 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 Continue treatment for both per the infectious disease. 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 Follow-up liver function test Subjective Date of service: 09/25/18 Principal diagnosis: elevated LFTs/abnormal CT Interval history: Patient seen lying in bed. Intubated and on ventilator. More awake today. Opens eyes to stimulus and squeezes my hand on request Objective - Exam Narrative Exam: Young -[place] male lying in bed intubated and on ventilator HEENT: NCAT, ETT intact Neck: Supple, no venous distention CVS: S1S2 RRR with no murmur, rub or gallop Chest: Coarse breath sounds with faint rhonchi Abdomen: Protuberant, soft, nontender, no organomegaly, bowel sounds are present Extremities: mild edema thighs Genitourinary deferred Neuro: Intubated on ventilator, opens eyes to speech as squeezing my hands on request - Vital Signs Vital signs: Vital Signs - 12hr 09/25/18 09/25/18 09/25/18 03:00 03:15 03:30 Temperature Pulse Rate 87 93 H 94 H Pulse Rate [ From Monitor] Pulse Rate [ Throughout] Respiratory 27 H 27 H Rate Respiratory Rate [ Throughout] Blood Pressure 112/60 112/60 95/64 O2 Sat by Pulse 98 99 Oximetry 09/25/18 09/25/18 09/25/18 03:37 04:00 04:30 Temperature 99.1 F Pulse Rate 94 H 91 H 92 H Pulse Rate [ 91 H From Monitor] Pulse Rate [ Throughout] Respiratory 28 H 26 H Rate Respiratory Rate [ Throughout] Blood Pressure 95/64 111/65 107/63 O2 Sat by Pulse 99 100 99 Oximetry 09/25/18 09/25/18 09/25/18 05:00 05:30 06:00 Temperature Pulse Rate 87 87 88 Pulse Rate [ From Monitor] Pulse Rate [ Throughout] Respiratory 26 H 23 27 H Rate Respiratory Rate [ Throughout] Blood Pressure 101/68 105/63 107/65 O2 Sat by Pulse 98 100 100 Oximetry 09/25/18 09/25/18 09/25/18 06:30 07:00 07:30 Temperature Pulse Rate 86 88 85 Pulse Rate [ From Monitor] Pulse Rate [ Throughout] Respiratory 23 24 18 Rate Respiratory Rate [ Throughout] Blood Pressure 123/62 110/60 112/70 O2 Sat by Pulse 99 100 99 Oximetry 09/25/18 09/25/18 09/25/18 08:00 08:30 08:59 Temperature 98.4 F Pulse Rate 88 99 H 90 Pulse Rate [ 88 From Monitor] Pulse Rate [ Throughout] Respiratory 29 H 18 26 H Rate Respiratory Rate [ Throughout] Blood Pressure 110/66 125/57 117/68 O2 Sat by Pulse 99 97 99 Oximetry 09/25/18 09/25/18 09/25/18 09:00 09:12 09:19 Temperature 98.4 F Pulse Rate 90 Pulse Rate [ From Monitor] Pulse Rate [ 105 H 100 H Throughout] Respiratory 27 H Rate Respiratory 26 H 30 H Rate [ Throughout] Blood Pressure 117/68 O2 Sat by Pulse 99 Oximetry 09/25/18 09/25/18 09/25/18 09:30 09:54 10:00 Temperature Pulse Rate 89 95 H 90 Pulse Rate [ From Monitor] Pulse Rate [ Throughout] Respiratory 25 H 27 H Rate Respiratory Rate [ Throughout] Blood Pressure 117/59 112/57 111/63 O2 Sat by Pulse 99 100 Oximetry 09/25/18 09/25/18 09/25/18 10:30 11:00 11:30 Temperature Pulse Rate 90 90 89 Pulse Rate [ From Monitor] Pulse Rate [ Throughout] Respiratory 29 H 27 H 24 Rate Respiratory Rate [ Throughout] Blood Pressure 106/57 98/57 96/57 O2 Sat by Pulse 100 100 100 Oximetry 09/25/18 09/25/18 09/25/18 12:00 12:30 12:34 Temperature Pulse Rate 86 87 88 Pulse Rate [ 93 H From Monitor] Pulse Rate [ Throughout] Respiratory 27 H 26 H 26 H Rate Respiratory Rate [ Throughout] Blood Pressure 106/60 106/58 106/58 O2 Sat by Pulse 100 100 100 Oximetry 09/25/18 09/25/18 09/25/18 12:46 13:00 14:54 Temperature 98.1 F Pulse Rate 86 Pulse Rate [ From Monitor] Pulse Rate [ 84 Throughout] Respiratory 25 H Rate Respiratory 22 Rate [ Throughout] Blood Pressure 105/57 O2 Sat by Pulse 100 Oximetry - Lab 09/25/18 03:45 09/25/18 14:20 Most recent lab results Calcium 6.7 mg/dL (8.4-10.2) L 09/25/18 14:20 Magnesium 1.70 mg/dL (1.7-2.3) 09/25/18 14:20 Medications & Allergies - Medications Allergies/Adverse Reactions: Allergies No Known Allergies Allergy (Unverified 09/11/18 17:50) Active Medications: Generic Name Dose Route Start Last Admin Trade Name Freq PRN Reason Stop Dose Admin Acetaminophen 650 mg 09/11/18 19:30 09/23/18 08:41 Tylenol PO 650 mg Q4H PRN Administration Pain MILD(1-3)/Fever >100.5/RIVERA Acetaminophen 650 mg 09/21/18 07:39 Tylenol [place] Q4H PRN Fever >101 Albuterol 2.5 mg 09/11/18 19:30 09/16/18 06:09 Proventil IH 2.5 mg Q4HRT PRN Administration Shortness Of Breath Albuterol 2.5 mg 09/20/18 20:00 09/25/18 14:54 Proventil IH 2.5 mg Q6HRT GIA Administration Amiodarone HCl 400 mg 09/23/18 11:00 09/25/18 10:01 Cordarone PO 400 mg BID GIA Administration Lipase/Protease/Amylase 1 each 09/23/18 10:58 Pancrealen Gibbs 10,500 Unit FEEDTUBE PRN PRN For Clogged Feeding Tube Atovaquone 750 mg 09/21/18 10:00 09/25/18 10:00 Mepron PO 750 mg BID GIA Administration Azithromycin 1,200 mg 09/25/18 10:00 09/25/18 10:00 Zithromax PO 1,200 mg Walters GIA Administration Famotidine 20 mg 09/24/18 10:00 09/25/18 10:00 Pepcid PO 20 mg BID GIA Administration Fentanyl 50 mcg 09/21/18 01:46 09/24/18 15:45 Sublimaze IV 50 mcg Q10MIN PRN Administration ANALGESIA Glycopyrrolate 2 mg 09/23/18 15:00 09/25/18 13:40 Robinul PO 2 mg Q8HR GIA Administration Hydrophilic Ointment 1 applic 09/21/18 01:46 09/22/18 03:46 Vaseline Lip Therapy TP 1 applic Q2HR PRN Administration Dry Lips Fluconazole 200 mls @ 100 mls/hr 09/13/18 14:00 09/25/18 10:01 Diflucan IV 100 mls/hr Q24HR GIA Administration Protocol Fentanyl Citrate 2,000 mcg in 100 mls @ 5.16 mls/hr 09/21/18 02:00 Fentanyl Drip Premix IV TITR GIA Protocol 1 MCG/KG/HR Midazolam HCl 100 mg/ Sodium 100 mls @ 2 mls/hr 09/21/18 02:00 09/21/18 15:39 Chloride IV 0 mg/hr TITR GIA 0 mls/hr Titration Protocol 2 MG/HR Heparin Sodium/Sodium Chloride 25,000 unit in 500 mls @ 30 mls/hr 09/21/18 11:00 09/24/18 23:49 Heparin/ 0.45% Nacl-25,000 Unit/500 Ml IV 1,300 units/hr TITR GIA 26 mls/hr Titration Protocol 1,500 UNITS/HR Norepinephrine 4 mg in 250 mls @ 7.5 mls/hr 09/22/18 16:00 09/23/18 15:25 Levophed Drip 4 Mg/Ns 250 Ml IV Infused TITR GIA Titration Protocol 2 MCG/MIN Ganciclovir Sodium 500 mg/ 250 mls @ 100 mls/hr 09/23/18 13:00 09/25/18 12:34 Sodium Chloride IV 100 mls/hr Q12H GIA Administration Ceftriaxone Sodium 2 gm in 100 mls @ 200 mls/hr 09/23/18 13:00 09/25/18 10:00 Rocephin/Ns 2 Gm/100 Ml IV 200 mls/hr Q12HR GIA Administration Protocol Vancomycin HCl 1,500 mg/ 530 mls @ 333.333 mls/hr 09/24/18 03:00 09/25/18 03:10 Sodium Chloride IV 333.333 mls/hr Q12H GIA Administration Levothyroxine Sodium 25 mcg 09/19/18 06:00 09/25/18 06:10 Synthroid PO 25 mcg DAILY@0600 GIA Administration Metoprolol Tartrate 5 mg 09/21/18 03:00 09/25/18 09:54 Lopressor IV 5 mg Q6H GIA Administration Metronidazole 500 mg 09/19/18 14:00 09/25/18 13:40 Flagyl PO 500 mg Q8HR GIA Administration Protocol Midazolam HCl 2 mg 09/21/18 01:46 09/25/18 03:08 Versed IV 2 mg Q10MIN PRN Administration Sedation Multi-Ingred Cream/Lotion/Oil/Oint 1 applic 09/21/18 01:46 Artificial Tears Ophth Oint OU Q4HR PRN Dry Eye(s) Ondansetron HCl 4 mg 09/11/18 19:30 Zofran IV Q8H PRN Nausea And Vomiting Scopolamine 1 each 09/18/18 18:00 09/24/18 17:53 Transderm-Scop TD 1 each Q3D GIA Administration Simple Syrup 15 ml 09/23/18 10:58 Simple Syrup FEEDTUBE PRN PRN Hypoglycemia Simple Syrup 30 ml 09/23/18 10:58 Simple Syrup FEEDTUBE PRN PRN Hypoglycemia Sodium Bicarbonate 325 mg 09/23/18 10:58 Sodium Bicarbonate FEEDTUBE PRN PRN For Clogged Feeding Tube Sodium Chloride 10 ml 09/11/18 22:00 09/25/18 10:00 Sodium Chloride Flush Syringe 10 Ml IV 10 ml BID GIA Administration Sodium Chloride 10 ml 09/11/18 19:30 Sodium Chloride Flush Syringe 10 Ml IV PRN PRN LINE FLUSH
[2018-09-25] MEDS ORDERED: POTASSIUM CHLORIDE FEEDTUBE ONE ×2 (15:00→18:00)
[2018-09-25] MEDS: HEPARIN/ 0.45% NACL-25,000 UNIT/500 ML 25,000 UNIT/500 ML BAG IV SCH (15:09)
[2018-09-26] MEDS: CYTOVENE 500 MG in NACL 0.9% 250ML 250 ML IV SCH ×2 (01:59→13:26)
[2018-09-26] MEDS: PROVENTIL IH SCH ×4 (02:02→19:25)
[2018-09-26] MEDS: VANCOMYCIN 1,500 MG in NACL 0.9% 500 ML 500 ML IV SCH ×2 (03:38→16:35)
[2018-09-26] MEDS: LOPRESSOR IV SCH ×4 (03:42→21:55)
[2018-09-26] MEDS: FLAGYL PO SCH ×3 (05:54→21:57)
[2018-09-26] MEDS: ROBINUL PO SCH ×3 (05:55→21:57)
[2018-09-26] MEDS: SYNTHROID PO SCH (05:55)
--- NOTE | 2018-09-26 06:25 | XRay Report ---
FINAL REPORT EXAM: XR CHEST 1V AP HISTORY: follow up respiratory failure TECHNIQUE: AP portable view(s) of the chest obtained. PRIORS: 09/25/2018 FINDINGS: Endotracheal tube terminates approximately 3 cm from the narcisa. Enteric tube is coiled in the region of the stomach. Right upper extremity PICC is satisfactory. No pneumothorax, effusion or focal airsp gutierrez disease. Basilar interstitial prominence is unchanged. Unchanged elevation of the right hemidiaph ragm. IMPRESSION: Satisfactory appearance of patient's support apparatus without pneumothorax or significant change com pared to 09/25/2018.
[2018-09-26 07:01] LABS: Alanine Aminotransferase 360 units/L (7-56); Albumin 1.5 g/dL (3.9-5); BUN/Creatinine Ratio 12; Blood Urea Nitrogen 13 mg/dL (9-20); Hemolysis Index 8
[2018-09-26 07:04] LABS: Hematocrit 28.6 % (35.5-45.6); Hemoglobin 9.2 gm/dl (11.8-15.2); Mean Corpuscular HGB Conc 32 % (32-34); Mean Corpuscular Volume 86 fl (84-94); Red Blood Count 3.32 M/mm3 (3.65-5.03); Red Cell Distribution Width 14.5 % (13.2-15.2)
--- NOTE | 2018-09-26 07:12 | Progress Note ---
Assessment and Plan - Patient Problems (1) Acute kidney failure with tubular necrosis Current Visit: Yes Status: Acute Plan to address problem: Overall renal function is stable. Need for close monitoring while receiving IV ganciclovir. Remains non oliguric. Continue to monitor. (2) Acute respiratory failure with hypoxia Current Visit: Yes Status: Acute Plan to address problem: Remains intubated. Chest xray noted this am, stable. Further management per pulm/ICU (3) Hypokalemia Current Visit: Yes Status: Acute Plan to address problem: Replete per protocol to maintain levels above 3.5. 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 Will continue to monitor. (5) Pancytopenia Current Visit: Yes Status: Acute Plan to address problem: In the setting of CMV viremia, HIV/AIDS. (6) HIV (human immunodeficiency virus infection) Current Visit: Yes Status: Chronic Plan to address problem: Management per ID recommendations. Subjective Date of service: 09/26/18 Principal diagnosis: elevated LFTs/abnormal CT Interval history: No acute events overnight. remains intubated, off sedation. remains lethargic but per nursing staff mild response to command. 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 Remains on ganciclovir IV. Objective - Vital Signs Vital signs: Vital Signs - 12hr 09/25/18 09/25/18 09/25/18 19:30 19:32 19:42 Temperature Pulse Rate 75 83 Pulse Rate [ Anterior Bilateral Throughout] Pulse Rate [ 90 From Monitor] Respiratory 25 H 18 23 Rate Respiratory Rate [Anterior Bilateral Throughout] Blood Pressure 114/68 128/56 O2 Sat by Pulse 98 98 99 Oximetry 09/25/18 09/25/18 09/25/18 19:45 20:00 20:30 Temperature 100.8 F H Pulse Rate 88 93 H Pulse Rate [ 91 H Anterior Bilateral Throughout] Pulse Rate [ From Monitor] Respiratory 30 H 28 H Rate Respiratory 20 Rate [Anterior Bilateral Throughout] Blood Pressure 125/66 118/73 O2 Sat by Pulse 99 99 Oximetry 09/25/18 09/25/18 09/25/18 21:00 21:16 21:30 Temperature Pulse Rate 84 74 78 Pulse Rate [ Anterior Bilateral Throughout] Pulse Rate [ From Monitor] Respiratory 27 H 26 H Rate Respiratory Rate [Anterior Bilateral Throughout] Blood Pressure 124/71 128/68 108/67 O2 Sat by Pulse 99 99 Oximetry 09/25/18 09/25/18 09/25/18 22:00 22:30 23:00 Temperature Pulse Rate 87 77 85 Pulse Rate [ Anterior Bilateral Throughout] Pulse Rate [ From Monitor] Respiratory 24 25 H 24 Rate Respiratory Rate [Anterior Bilateral Throughout] Blood Pressure 127/63 113/62 115/55 O2 Sat by Pulse 99 100 100 Oximetry 09/25/18 09/25/18 09/25/18 23:13 23:15 23:30 Temperature Pulse Rate 84 84 82 Pulse Rate [ Anterior Bilateral Throughout] Pulse Rate [ From Monitor] Respiratory 14 25 H 25 H Rate Respiratory Rate [Anterior Bilateral Throughout] Blood Pressure 115/55 115/61 116/64 O2 Sat by Pulse 100 100 100 Oximetry 09/25/18 09/25/18 09/26/18 23:48 23:52 00:00 Temperature 100.7 F H Pulse Rate 86 89 Pulse Rate [ Anterior Bilateral Throughout] Pulse Rate [ 91 H From Monitor] Respiratory 31 H 25 H Rate Respiratory Rate [Anterior Bilateral Throughout] Blood Pressure 114/65 117/66 O2 Sat by Pulse 100 100 Oximetry 09/26/18 09/26/18 09/26/18 00:30 01:00 01:30 Temperature Pulse Rate 86 85 85 Pulse Rate [ Anterior Bilateral Throughout] Pulse Rate [ From Monitor] Respiratory 22 25 H 25 H Rate Respiratory Rate [Anterior Bilateral Throughout] Blood Pressure 92/62 108/57 112/68 O2 Sat by Pulse 100 100 100 Oximetry 09/26/18 09/26/18 09/26/18 02:00 02:15 02:30 Temperature Pulse Rate 91 H 85 Pulse Rate [ 92 H Anterior Bilateral Throughout] Pulse Rate [ From Monitor] Respiratory 24 23 Rate Respiratory 22 Rate [Anterior Bilateral Throughout] Blood Pressure 110/70 117/62 O2 Sat by Pulse 100 100 Oximetry 09/26/18 09/26/18 09/26/18 03:00 03:30 03:42 Temperature Pulse Rate 83 84 89 Pulse Rate [ Anterior Bilateral Throughout] Pulse Rate [ From Monitor] Respiratory 23 24 Rate Respiratory Rate [Anterior Bilateral Throughout] Blood Pressure 109/59 113/58 113/58 O2 Sat by Pulse 100 100 Oximetry 09/26/18 09/26/18 09/26/18 03:54 04:00 04:30 Temperature 99.8 F H Pulse Rate 91 H 101 H 81 Pulse Rate [ Anterior Bilateral Throughout] Pulse Rate [ 86 From Monitor] Respiratory 12 27 H 22 Rate Respiratory Rate [Anterior Bilateral Throughout] Blood Pressure 110/57 120/57 107/56 O2 Sat by Pulse 100 100 100 Oximetry 09/26/18 09/26/18 09/26/18 05:00 05:30 06:00 Temperature Pulse Rate 88 83 84 Pulse Rate [ Anterior Bilateral Throughout] Pulse Rate [ From Monitor] Respiratory 26 H 25 H 23 Rate Respiratory Rate [Anterior Bilateral Throughout] Blood Pressure 108/64 111/61 106/61 O2 Sat by Pulse 99 100 100 Oximetry 09/26/18 09/26/18 06:20 06:30 Temperature Pulse Rate 86 88 Pulse Rate [ Anterior Bilateral Throughout] Pulse Rate [ From Monitor] Respiratory 20 24 Rate Respiratory Rate [Anterior Bilateral Throughout] Blood Pressure 108/68 107/60 O2 Sat by Pulse 100 100 Oximetry - General Appearance General appearance: appears stated age, intubated EENT: ATNC Neck: no JVD, no thyromegaly Respiratory: Present: Clear to Ascultation Cardiology: regular, S1S2 Gastrointestinal: normal, normoactive bowel sounds Integumentary: skin tear (skin tear/bleeding noted in right ear) Musculoskeletal: other (-edema ) Psychiatric: other (lethargic) - Lab 09/25/18 03:45 09/26/18 06:15 Most recent lab results Calcium 7.0 mg/dL (8.4-10.2) L 09/26/18 06:15 Phosphorus 0.90 mg/dL (2.5-4.5) L* 09/26/18 06:15 Magnesium 1.80 mg/dL (1.7-2.3) 09/26/18 06:15 - Imaging Chest x-ray: report reviewed - Allied health notes Allied health notes reviewed: nursing Medications & Allergies - Medications Allergies/Adverse Reactions: Allergies No Known Allergies Allergy (Unverified 09/11/18 17:50) Active Medications: Generic Name Dose Route Start Last Admin Trade Name Freq PRN Reason Stop Dose Admin Acetaminophen 650 mg 09/11/18 19:30 09/23/18 08:41 Tylenol PO 650 mg Q4H PRN Administration Pain MILD(1-3)/Fever >100.5/RIVERA Acetaminophen 650 mg 09/21/18 07:39 Tylenol [place] Q4H PRN Fever >101 Albuterol 2.5 mg 09/11/18 19:30 09/16/18 06:09 Proventil IH 2.5 mg Q4HRT PRN Administration Shortness Of Breath Albuterol 2.5 mg 09/20/18 20:00 09/26/18 02:02 Proventil IH 2.5 mg Q6HRT GIA Administration Amiodarone HCl 400 mg 09/23/18 11:00 09/25/18 21:14 Cordarone PO 400 mg BID GIA Administration Lipase/Protease/Amylase 1 each 09/23/18 10:[address] 10,500 Unit FEEDTUBE PRN PRN For Clogged Feeding Tube Atovaquone 750 mg 09/21/18 10:00 09/25/18 21:15 Mepron PO 750 mg BID GIA Administration Azithromycin 1,200 mg 09/25/18 10:00 09/25/18 10:00 Zithromax PO 1,200 mg Walters GIA Administration Famotidine 20 mg 09/24/18 10:00 09/25/18 21:15 Pepcid PO 20 mg BID GIA Administration Fentanyl 50 mcg 09/21/18 01:46 09/24/18 15:45 Sublimaze IV 50 mcg Q10MIN PRN Administration ANALGESIA Glycopyrrolate 2 mg 09/23/18 15:00 09/26/18 05:55 Robinul PO 2 mg Q8HR GIA Administration Hydrophilic Ointment 1 applic 09/21/18 01:46 09/22/18 03:46 Vaseline Lip Therapy TP 1 applic Q2HR PRN Administration Dry Lips Fluconazole 200 mls @ 100 mls/hr 09/13/18 14:00 09/25/18 12:01 Diflucan IV Infused Q24HR [facility] Infusion Protocol Fentanyl Citrate 2,000 mcg in 100 mls @ 5.16 mls/hr 09/21/18 02:00 Fentanyl Drip Premix IV TITR GIA Protocol 1 MCG/KG/HR Midazolam HCl 100 mg/ Sodium 100 mls @ 2 mls/hr 09/21/18 02:00 09/21/18 15:39 Chloride IV 0 mg/hr TITR GIA 0 mls/hr Titration Protocol 2 MG/HR Heparin Sodium/Sodium Chloride 25,000 unit in 500 mls @ 30 mls/hr 09/21/18 11:00 09/25/18 23:50 Heparin/ 0.45% Nacl-25,000 Unit/500 Ml IV 1,300 units/hr TITR GIA 26 mls/hr Titration Protocol 1,500 UNITS/HR Norepinephrine 4 mg in 250 mls @ 7.5 mls/hr 09/22/18 16:00 09/23/18 15:25 Levophed Drip 4 Mg/Ns 250 Ml IV Infused TITR GIA Titration Protocol 2 MCG/MIN Ganciclovir Sodium 500 mg/ 250 mls @ 100 mls/hr 09/23/18 13:00 09/26/18 04:29 Sodium Chloride IV Infused Q12H GIA Infusion Ceftriaxone Sodium 2 gm in 100 mls @ 200 mls/hr 09/23/18 13:00 09/25/18 22:00 Rocephin/Ns 2 Gm/100 Ml IV Infused Q12HR [facility] Infusion Protocol Vancomycin HCl 1,500 mg/ 530 mls @ 333.333 mls/hr 09/24/18 03:00 09/26/18 05:14 Sodium Chloride IV Infused Q12H GIA Infusion Levothyroxine Sodium 25 mcg 09/19/18 06:00 09/26/18 05:55 Synthroid PO 25 mcg DAILY@0600 GIA Administration Metoprolol Tartrate 5 mg 09/21/18 03:00 09/26/18 03:42 Lopressor IV 5 mg Q6H GIA Administration Metronidazole 500 mg 09/19/18 14:00 09/26/18 05:54 Flagyl PO 500 mg Q8HR GIA Administration Protocol Midazolam HCl 2 mg 09/21/18 01:46 09/25/18 03:08 Versed IV 2 mg Q10MIN PRN Administration Sedation Multi-Ingred Cream/Lotion/Oil/Oint 1 applic 09/21/18 01:46 Artificial Tears Ophth Oint OU Q4HR PRN Dry Eye(s) Ondansetron HCl 4 mg 09/11/18 19:30 Zofran IV Q8H PRN Nausea And Vomiting Scopolamine 1 each 09/18/18 18:00 09/24/18 17:53 Transderm-Scop TD 1 each Q3D GIA Administration Simple Syrup 15 ml 09/23/18 10:58 Simple Syrup FEEDTUBE PRN PRN Hypoglycemia Simple Syrup 30 ml 09/23/18 10:58 Simple Syrup FEEDTUBE PRN PRN Hypoglycemia Sodium Bicarbonate 325 mg 09/23/18 10:58 Sodium Bicarbonate FEEDTUBE PRN PRN For Clogged Feeding Tube Sodium Chloride 10 ml 09/11/18 22:00 09/25/18 21:18 Sodium Chloride Flush Syringe 10 Ml IV 10 ml BID GIA Administration Sodium Chloride 10 ml 09/11/18 19:30 Sodium Chloride Flush Syringe 10 Ml IV PRN PRN LINE FLUSH
[2018-09-26 07:26] LABS: Platelet Count 97 K/mm3 (140-440)
[2018-09-26 08:18] LABS: Total Cells Counted 100
[2018-09-26 08:20] LABS: Anisocytosis 1+; Macrocytosis Few; Ovalocytes 1+; Platelet Estimate Consistent w Auto; Poikilocytosis 1+; Target Cells Rare
[2018-09-26] MEDS ORDERED: KPHOS 40 MMOL in NACL 0.9% 500 ML 500 ML IV ONE (09:00)
[2018-09-26] MEDS: HEPARIN/ 0.45% NACL-25,000 UNIT/500 ML 25,000 UNIT/500 ML BAG IV SCH (10:09)
[2018-09-26] MEDS: CORDARONE PO SCH ×2 (10:13→21:57)
[2018-09-26] MEDS: MEPRON PO SCH ×2 (10:13→21:58)
[2018-09-26] MEDS: ROCEPHIN/NS 2 GM/100 ML 2 GM/100 ML BAG IV SCH ×2 (10:14→22:38)
[2018-09-26] MEDS: PEPCID PO SCH ×2 (10:14→21:58)
[2018-09-26] MEDS: SODIUM CHLORIDE FLUSH SYRINGE 10 ML IV SCH ×2 (10:14→21:58)
[2018-09-26] MEDS: DIFLUCAN 200 ML IV SCH (10:15)
[2018-09-26] MEDS: K-PHOS NEUTRAL PO SCH ×4 (11:08→22:09)
--- NOTE | 2018-09-26 11:19 | Progress Note ---
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) Elevated LFTs Neutropenia Thrombocytopenia (His mental status is still the rate limiting step to safe extubation for now) - continue anti-infective's per ID recs - reduce Psupp to 10 cm H2O - get ABG in 2 hours and reassess mental status - hold tube feeds in anticipation of extubation - continue supplemental oxygen to keep sats > 90% - continue bronchodilators with pulmonary Continue empiric and targeted anti- infective's per ID recs antibiotics per ID - continue set rate at 12/min - continue daily SBT's assessment - daily SAT's - continue Robinul 2 mg q8h for secretions - IV amiodarone stopped - cardiology evaluation ongoing - diarrhea improved - continue fluconazole for candidiasis - watch for drug-drug interactions - continue enteral nutrition as tolerated - begin fentanyl drip for agitation and to help secure ETT (target RASS 0 to -1) - PT/OT/ROM exercises as tolerated - mobility protocol for pressure ulcer prophylaxis - continue GI & VTE prophylaxis - continue other care per attending / other consultants ....... care plan discussed at length with next-of-kin at bedside ...... re-evaluate in am & prn The high probability of a clinically significant, sudden or life threatening deterioration of the [cardiac, respiratory and neurologic] system(s) required my full and direct attention, intervention and personal management. The aggregate critical care time was [35] minutes. This time is in addition to time spent performing reported procedures but includes the following: [x] Data Review and interpretation [x] Patient assessment and monitoring of vital signs [x] Documentation [x] Medication orders and management Subjective Date of service: 09/26/18 Principal diagnosis: Severe sepsis; Ac hypoxemic Resp failure; [place]. Pneumonia; Ac encephalopathy Interval history: Patient is seen today for: Severe sepsis (present on admission with fever, tachycardia, hypotension and elevated lactate); Acute hypoxemic Respiratory failure; Bilateral pneumonia; Acute encephalopathy (Toxic / Metabolic); Atrial Fibrillation with RVR Seen and examined at bedside; 24hour events reviewed; nursing and respiratory care staff consulted; no adverse overnight events reported to me; resting peacefully in bed; lethargic but nods head appropriately; still very weak; no seizures; no high grade fevers; on PSV trial but at Psupp of 12 cmH2O Objective Vital Signs - 12hr 09/25/18 09/25/18 09/25/18 23:30 23:48 23:52 Temperature 100.7 F H Pulse Rate 82 86 Pulse Rate [ Anterior Bilateral Throughout] Pulse Rate [ From Monitor] Pulse Rate [ Throughout] Respiratory 25 H 31 H Rate Respiratory Rate [Anterior Bilateral Throughout] Respiratory Rate [ Throughout] Blood Pressure 116/64 114/65 O2 Sat by Pulse 100 100 Oximetry 09/26/18 09/26/18 09/26/18 00:00 00:30 01:00 Temperature Pulse Rate 89 86 85 Pulse Rate [ Anterior Bilateral Throughout] Pulse Rate [ 91 H From Monitor] Pulse Rate [ Throughout] Respiratory 25 H 22 25 H Rate Respiratory Rate [Anterior Bilateral Throughout] Respiratory Rate [ Throughout] Blood Pressure 117/66 92/62 108/57 O2 Sat by Pulse 100 100 100 Oximetry 09/26/18 09/26/18 09/26/18 01:30 02:00 02:15 Temperature Pulse Rate 85 91 H Pulse Rate [ 92 H Anterior Bilateral Throughout] Pulse Rate [ From Monitor] Pulse Rate [ Throughout] Respiratory 25 H 24 Rate Respiratory 22 Rate [Anterior Bilateral Throughout] Respiratory Rate [ Throughout] Blood Pressure 112/68 110/70 O2 Sat by Pulse 100 100 Oximetry 09/26/18 09/26/18 09/26/18 02:30 03:00 03:30 Temperature Pulse Rate 85 83 84 Pulse Rate [ Anterior Bilateral Throughout] Pulse Rate [ From Monitor] Pulse Rate [ Throughout] Respiratory 23 23 24 Rate Respiratory Rate [Anterior Bilateral Throughout] Respiratory Rate [ Throughout] Blood Pressure 117/62 109/59 113/58 O2 Sat by Pulse 100 100 100 Oximetry 09/26/18 09/26/18 09/26/18 03:42 03:54 04:00 Temperature 99.8 F H Pulse Rate 89 91 H 101 H Pulse Rate [ Anterior Bilateral Throughout] Pulse Rate [ 86 From Monitor] Pulse Rate [ Throughout] Respiratory 12 27 H Rate Respiratory Rate [Anterior Bilateral Throughout] Respiratory Rate [ Throughout] Blood Pressure 113/58 110/57 120/57 O2 Sat by Pulse 100 100 Oximetry 09/26/18 09/26/18 09/26/18 04:30 05:00 05:30 Temperature Pulse Rate 81 88 83 Pulse Rate [ Anterior Bilateral Throughout] Pulse Rate [ From Monitor] Pulse Rate [ Throughout] Respiratory 22 26 H 25 H Rate Respiratory Rate [Anterior Bilateral Throughout] Respiratory Rate [ Throughout] Blood Pressure 107/56 108/64 111/61 O2 Sat by Pulse 100 99 100 Oximetry 09/26/18 09/26/18 09/26/18 06:00 06:20 06:30 Temperature Pulse Rate 84 86 88 Pulse Rate [ Anterior Bilateral Throughout] Pulse Rate [ From Monitor] Pulse Rate [ Throughout] Respiratory 23 20 24 Rate Respiratory Rate [Anterior Bilateral Throughout] Respiratory Rate [ Throughout] Blood Pressure 106/61 108/68 107/60 O2 Sat by Pulse 100 100 100 Oximetry 09/26/18 09/26/18 09/26/18 07:00 07:30 07:52 Temperature Pulse Rate 90 89 91 H Pulse Rate [ Anterior Bilateral Throughout] Pulse Rate [ From Monitor] Pulse Rate [ Throughout] Respiratory 24 21 23 Rate Respiratory Rate [Anterior Bilateral Throughout] Respiratory Rate [ Throughout] Blood Pressure 111/65 115/66 110/65 O2 Sat by Pulse 100 100 100 Oximetry 09/26/18 09/26/18 09/26/18 07:59 08:00 08:15 Temperature 100 F H Pulse Rate 90 Pulse Rate [ Anterior Bilateral Throughout] Pulse Rate [ From Monitor] Pulse Rate [ 88 91 H Throughout] Respiratory 22 Rate Respiratory Rate [Anterior Bilateral Throughout] Respiratory 23 23 Rate [ Throughout] Blood Pressure 108/67 O2 Sat by Pulse 100 Oximetry 09/26/18 09/26/18 09/26/18 08:30 09:00 09:30 Temperature Pulse Rate 88 89 85 Pulse Rate [ Anterior Bilateral Throughout] Pulse Rate [ From Monitor] Pulse Rate [ Throughout] Respiratory 25 H 22 23 Rate Respiratory Rate [Anterior Bilateral Throughout] Respiratory Rate [ Throughout] Blood Pressure 116/62 114/72 113/65 O2 Sat by Pulse 100 100 100 Oximetry 09/26/18 10:00 Temperature Pulse Rate 87 Pulse Rate [ Anterior Bilateral Throughout] Pulse Rate [ From Monitor] Pulse Rate [ Throughout] Respiratory 21 Rate Respiratory Rate [Anterior Bilateral Throughout] Respiratory Rate [ Throughout] Blood Pressure 118/69 O2 Sat by Pulse 100 Oximetry Constitutional: lethargic, agitated, appears uncomfortable, other (orally intubated ETT at 23cm) Eyes: non-icteric ENT: oropharynx moist, other (ETT 24 cm NIKA) Neck: supple, no lymphadenopathy Effort: mildly labored Ascultation: Bilateral: rhonchi Percussion: Bilateral: not dull Cardiovascular: regular rate and rhythm, other (S1,S2, no murmurs, gallps or rubs) Gastrointestinal: normoactive bowel sounds, soft, non-tender, non-distended Integumentary: rash Extremities: no cyanosis, pulses normal, no ischemia or petechiae, edema Neurologic: pupils equal and round, motor strength normal and (weak though) Psychiatric: other (unable to assess) CBC and BMP: 09/27/18 04:11 09/26/18 06:15 ABG, PT/INR, D-dimer: ABG POC ABG pH 7.459 (7.35-7.45) H 09/26/18 10:43 POC ABG pCO2 35.8 (35-45) 09/26/18 10:43 POC ABG pO2 141 (80-105) H 09/26/18 10:43 POC ABG HCO3 25.4 09/26/18 10:43 POC ABG Total CO2 26 09/26/18 10:43 POC ABG O2 Sat 99 09/26/18 10:43 PT/INR, D-dimer PT 19.9 Sec. (12.2-14.9) H 09/21/18 15:00 INR 1.65 (0.87-1.13) H 09/21/18 15:00 Abnormal lab findings: Abnormal Labs 09/11/18 09/11/18 09/11/18 18:00 18:00 18:00 WBC 1.9 L* RBC Hgb Hct Plt Count 130 L Seg Neuts % (Manual) Lymphocytes % (Manual) Monocytes % (Manual) 16.0 H Eosinophils % (Manual) Basophils % (Manual) Nucleated RBC % Seg Neutrophils # Man 0.9 L Abs Lymphs (Manual) Lymphocytes # (Manual) 0.5 L PT INR APTT Heparin Anti-Xa Level POC ABG pH POC ABG pCO2 POC ABG pO2 Sodium 131 L Potassium Chloride Carbon Dioxide 17 L BUN 21 H Creatinine Glucose 126 H POC Glucose Lactic Acid 2.60 H* Calcium 8.1 L Phosphorus AST 123 H ALT 115 H Total Creatine Kinase Total Protein Albumin 3.0 L Vitamin B12 TSH Free T4 CSF VDRL Lymph Enumerat CD4/CD8 Absolute CD3 Count % CD4 Cells Absolute CD4 Count % CD8 Cells Absolute CD19 Count T.pallidum Ab (FTA-ABS) HIV-1 RNA PCR copies/ml HIV-1 RNA (PCR) log Miscellaneous Test 09/11/18 09/13/18 09/13/18 19:01 04:28 07:31 WBC 2.0 L RBC Hgb Hct Plt Count 116 L Seg Neuts % (Manual) Lymphocytes % (Manual) Monocytes % (Manual) 8.0 H Eosinophils % (Manual) Basophils % (Manual) Nucleated RBC % Seg Neutrophils # Man 1.0 L Abs Lymphs (Manual) Lymphocytes # (Manual) 0.5 L PT INR APTT Heparin Anti-Xa Level POC ABG pH POC ABG pCO2 POC ABG pO2 Sodium Potassium Chloride 110.4 H Carbon Dioxide 19 L BUN Creatinine Glucose POC Glucose Lactic Acid 3.70 H* Calcium 7.9 L Phosphorus AST ALT Total Creatine Kinase Total Protein Albumin Vitamin B12 TSH Free T4 CSF VDRL Lymph Enumerat CD4/CD8 Absolute CD3 Count % CD4 Cells Absolute CD4 Count % CD8 Cells Absolute CD19 Count T.pallidum Ab (FTA-ABS) HIV-1 RNA PCR copies/ml HIV-1 RNA (PCR) log Miscellaneous Test 09/13/18 09/13/18 09/13/18 07:31 12:29 12:29 WBC RBC Hgb Hct Plt Count Seg Neuts % (Manual) Lymphocytes % (Manual) Monocytes % (Manual) Eosinophils % (Manual) Basophils % (Manual) Nucleated RBC % Seg Neutrophils # Man Abs Lymphs (Manual) 309 L Lymphocytes # (Manual) PT INR APTT Heparin Anti-Xa Level POC ABG pH POC ABG pCO2 POC ABG pO2 Sodium Potassium Chloride Carbon Dioxide BUN Creatinine Glucose POC Glucose Lactic Acid Calcium Phosphorus AST 70 H ALT 68 H Total Creatine Kinase Total Protein Albumin 2.5 L Vitamin B12 TSH Free T4 CSF VDRL Lymph Enumerat CD4/CD8 0.01 L Absolute CD3 Count 220 L % CD4 Cells 1 L Absolute CD4 Count 4 L % CD8 Cells 70 H Absolute CD19 Count 54 L T.pallidum Ab (FTA-ABS) HIV-1 RNA PCR copies/ml 44485 H HIV-1 RNA (PCR) log 4.71 H Miscellaneous Test 09/14/18 09/14/18 09/15/18 07:17 16:34 05:05 WBC 1.6 L* RBC Hgb 10.4 L Hct 31.1 L D Plt Count 113 L Seg Neuts % (Manual) Lymphocytes % (Manual) Monocytes % (Manual) Eosinophils % (Manual) Basophils % (Manual) Nucleated RBC % Seg Neutrophils # Man Abs Lymphs (Manual) Lymphocytes # (Manual) PT INR APTT Heparin Anti-Xa Level POC ABG pH POC ABG pCO2 POC ABG pO2 Sodium Potassium 3.4 L Chloride Carbon Dioxide 18 L BUN Creatinine Glucose 104 H POC Glucose Lactic Acid Calcium 7.6 L Phosphorus AST 49 H ALT Total Creatine Kinase Total Protein Albumin 2.5 L Vitamin B12 TSH Free T4 CSF VDRL Lymph Enumerat CD4/CD8 Absolute CD3 Count % CD4 Cells Absolute CD4 Count % CD8 Cells Absolute CD19 Count T.pallidum Ab (FTA-ABS) Reactive H HIV-1 RNA PCR copies/ml HIV-1 RNA (PCR) log Miscellaneous Test 09/15/18 09/15/18 09/16/18 05:05 Unknown 06:55 WBC 2.8 L RBC Hgb 10.9 L Hct 33.5 L Plt Count 135 L Seg Neuts % (Manual) Lymphocytes % (Manual) Monocytes % (Manual) Eosinophils % (Manual) Basophils % (Manual) Nucleated RBC % Seg Neutrophils # Man Abs Lymphs (Manual) Lymphocytes # (Manual) PT INR APTT Heparin Anti-Xa Level POC ABG pH POC ABG pCO2 POC ABG pO2 Sodium Potassium Chloride 107.9 H Carbon Dioxide 18 L BUN 6 L Creatinine Glucose POC Glucose Lactic Acid Calcium 7.4 L Phosphorus AST ALT Total Creatine Kinase Total Protein Albumin Vitamin B12 TSH Free T4 CSF VDRL Reactive 1:8 H Lymph Enumerat CD4/CD8 Absolute CD3 Count % CD4 Cells Absolute CD4 Count % CD8 Cells Absolute CD19 Count T.pallidum Ab (FTA-ABS) HIV-1 RNA PCR copies/ml HIV-1 RNA (PCR) log Miscellaneous Test 09/16/18 09/16/18 09/16/18 11:41 11:41 11:41 WBC RBC Hgb Hct Plt Count Seg Neuts % (Manual) Lymphocytes % (Manual) Monocytes % (Manual) Eosinophils % (Manual) Basophils % (Manual) Nucleated RBC % Seg Neutrophils # Man Abs Lymphs (Manual) Lymphocytes # (Manual) PT INR APTT Heparin Anti-Xa Level POC ABG pH POC ABG pCO2 POC ABG pO2 Sodium Potassium Chloride Carbon Dioxide BUN Creatinine Glucose POC Glucose Lactic Acid Calcium Phosphorus AST ALT Total Creatine Kinase Total Protein Albumin Vitamin B12 934.5 H TSH 4.210 H Free T4 0.72 L CSF VDRL Lymph Enumerat CD4/CD8 Absolute CD3 Count % CD4 Cells Absolute CD4 Count % CD8 Cells Absolute CD19 Count T.pallidum Ab (FTA-ABS) HIV-1 RNA PCR copies/ml HIV-1 RNA (PCR) log Miscellaneous Test 09/16/18 09/17/18 09/17/18 15:43 05:13 05:13 WBC 2.0 L RBC Hgb 10.9 L Hct 32.7 L Plt Count Seg Neuts % (Manual) Lymphocytes % (Manual) Monocytes % (Manual) Eosinophils % (Manual) Basophils % (Manual) Nucleated RBC % Seg Neutrophils # Man Abs Lymphs (Manual) Lymphocytes # (Manual) PT INR APTT Heparin Anti-Xa Level POC ABG pH POC ABG pCO2 29.3 L POC ABG pO2 70 L Sodium Potassium Chloride 107.2 H Carbon Dioxide 21 L BUN 3 L Creatinine 0.7 L Glucose POC Glucose Lactic Acid Calcium 7.9 L Phosphorus AST ALT Total Creatine Kinase Total Protein 6.1 L Albumin 2.6 L Vitamin B12 TSH Free T4 CSF VDRL Lymph Enumerat CD4/CD8 Absolute CD3 Count % CD4 Cells Absolute CD4 Count % CD8 Cells Absolute CD19 Count T.pallidum Ab (FTA-ABS) HIV-1 RNA PCR copies/ml HIV-1 RNA (PCR) log Miscellaneous Test 09/17/18 09/18/18 09/18/18 21:57 12:46 12:46 WBC RBC Hgb Hct Plt Count Seg Neuts % (Manual) Lymphocytes % (Manual) Monocytes % (Manual) Eosinophils % (Manual) Basophils % (Manual) Nucleated RBC % Seg Neutrophils # Man Abs Lymphs (Manual) Lymphocytes # (Manual) PT INR APTT Heparin Anti-Xa Level POC ABG pH POC ABG pCO2 POC ABG pO2 Sodium Potassium Chloride Carbon Dioxide BUN Creatinine Glucose POC Glucose 108 H Lactic Acid Calcium Phosphorus AST ALT Total Creatine Kinase Total Protein Albumin Vitamin B12 TSH 5.190 H Free T4 0.75 L CSF VDRL Lymph Enumerat CD4/CD8 Absolute CD3 Count % CD4 Cells Absolute CD4 Count % CD8 Cells Absolute CD19 Count T.pallidum Ab (FTA-ABS) HIV-1 RNA PCR copies/ml HIV-1 RNA (PCR) log Miscellaneous Test 09/19/18 09/19/18 09/19/18 04:57 04:57 15:00 WBC 2.1 L RBC Hgb 11.4 L Hct 34.2 L Plt Count Seg Neuts % (Manual) Lymphocytes % (Manual) Monocytes % (Manual) Eosinophils % (Manual) Basophils % (Manual) Nucleated RBC % Seg Neutrophils # Man Abs Lymphs (Manual) Lymphocytes # (Manual) PT INR APTT Heparin Anti-Xa Level POC ABG pH POC ABG pCO2 POC ABG pO2 Sodium Potassium Chloride Carbon Dioxide 19 L BUN 6 L Creatinine Glucose POC Glucose Lactic Acid Calcium 7.9 L Phosphorus AST ALT Total Creatine Kinase Total Protein Albumin Vitamin B12 TSH Free T4 CSF VDRL Lymph Enumerat CD4/CD8 Absolute CD3 Count % CD4 Cells Absolute CD4 Count % CD8 Cells Absolute CD19 Count T.pallidum Ab (FTA-ABS) HIV-1 RNA PCR copies/ml HIV-1 RNA (PCR) log Miscellaneous Test Flexitest 1 H 09/19/18 09/20/18 09/20/18 15:00 05:33 06:52 WBC 2.5 L RBC Hgb Hct Plt Count Seg Neuts % (Manual) Lymphocytes % (Manual) Monocytes % (Manual) Eosinophils % (Manual) Basophils % (Manual) Nucleated RBC % Seg Neutrophils # Man Abs Lymphs (Manual) Lymphocytes # (Manual) PT INR APTT Heparin Anti-Xa Level POC ABG pH POC ABG pCO2 POC ABG pO2 Sodium 136 L Potassium Chloride Carbon Dioxide 19 L BUN 7 L Creatinine Glucose POC Glucose Lactic Acid Calcium Phosphorus AST ALT Total Creatine Kinase Total Protein Albumin Vitamin B12 TSH Free T4 CSF VDRL Reactive 1:4 H Lymph Enumerat CD4/CD8 Absolute CD3 Count % CD4 Cells Absolute CD4 Count % CD8 Cells Absolute CD19 Count T.pallidum Ab (FTA-ABS) HIV-1 RNA PCR copies/ml HIV-1 RNA (PCR) log Miscellaneous Test 09/21/18 09/21/18 09/21/18 01:06 03:49 04:15 WBC 3.1 L RBC Hgb 11.6 L Hct Plt Count Seg Neuts % (Manual) Lymphocytes % (Manual) Monocytes % (Manual) 12.0 H Eosinophils % (Manual) Basophils % (Manual) Nucleated RBC % Seg Neutrophils # Man 1.6 L Abs Lymphs (Manual) Lymphocytes # (Manual) 0.5 L PT INR APTT Heparin Anti-Xa Level POC ABG pH 7.159 L POC ABG pCO2 32.9 L 70.0 H POC ABG pO2 62 L 254 H Sodium Potassium Chloride Carbon Dioxide BUN Creatinine Glucose POC Glucose Lactic Acid Calcium Phosphorus AST ALT Total Creatine Kinase Total Protein Albumin Vitamin B12 TSH Free T4 CSF VDRL Lymph Enumerat CD4/CD8 Absolute CD3 Count % CD4 Cells Absolute CD4 Count % CD8 Cells Absolute CD19 Count T.pallidum Ab (FTA-ABS) HIV-1 RNA PCR copies/ml HIV-1 RNA (PCR) log Miscellaneous Test 09/21/18 09/21/18 09/21/18 04:15 04:25 09:59 WBC RBC Hgb Hct Plt Count Seg Neuts % (Manual) Lymphocytes % (Manual) Monocytes % (Manual) Eosinophils % (Manual) Basophils % (Manual) Nucleated RBC % Seg Neutrophils # Man Abs Lymphs (Manual) Lymphocytes # (Manual) PT INR APTT Heparin Anti-Xa Level POC ABG pH 7.301 L POC ABG pCO2 POC ABG pO2 109 H Sodium Potassium 6.1 H* D Chloride Carbon Dioxide 19 L BUN Creatinine Glucose 108 H POC Glucose Lactic Acid Calcium Phosphorus AST ALT Total Creatine Kinase 685 H Total Protein Albumin Vitamin B12 TSH Free T4 CSF VDRL Lymph Enumerat CD4/CD8 Absolute CD3 Count % CD4 Cells Absolute CD4 Count % CD8 Cells Absolute CD19 Count T.pallidum Ab (FTA-ABS) HIV-1 RNA PCR copies/ml HIV-1 RNA (PCR) log Miscellaneous Test 09/21/18 09/21/18 09/21/18 10:07 11:00 15:00 WBC RBC Hgb 11.7 L Hct Plt Count Seg Neuts % (Manual) Lymphocytes % (Manual) Monocytes % (Manual) Eosinophils % (Manual) Basophils % (Manual) Nucleated RBC % Seg Neutrophils # Man Abs Lymphs (Manual) Lymphocytes # (Manual) PT 19.9 H INR 1.65 H APTT 40.9 H Heparin Anti-Xa Level POC ABG pH POC ABG pCO2 POC ABG pO2 Sodium Potassium 6.5 H* Chloride Carbon Dioxide 18 L BUN Creatinine 2.1 H D Glucose POC Glucose Lactic Acid Calcium 8.1 L Phosphorus AST 94 H ALT Total Creatine Kinase Total Protein Albumin 2.8 L Vitamin B12 TSH Free T4 CSF VDRL Lymph Enumerat CD4/CD8 Absolute CD3 Count % CD4 Cells Absolute CD4 Count % CD8 Cells Absolute CD19 Count T.pallidum Ab (FTA-ABS) HIV-1 RNA PCR copies/ml HIV-1 RNA (PCR) log Miscellaneous Test 09/21/18 09/21/18 09/21/18 21:54 21:54 22:57 WBC RBC Hgb Hct Plt Count Seg Neuts % (Manual) Lymphocytes % (Manual) Monocytes % (Manual) Eosinophils % (Manual) Basophils % (Manual) Nucleated RBC % Seg Neutrophils # Man Abs Lymphs (Manual) Lymphocytes # (Manual) PT INR APTT Heparin Anti-Xa Level 0.98 H POC ABG pH POC ABG pCO2 POC ABG pO2 Sodium Potassium 5.2 H Chloride Carbon Dioxide BUN Creatinine Glucose POC Glucose 124 H Lactic Acid Calcium Phosphorus AST ALT Total Creatine Kinase Total Protein Albumin Vitamin B12 TSH Free T4 CSF VDRL Lymph Enumerat CD4/CD8 Absolute CD3 Count % CD4 Cells Absolute CD4 Count % CD8 Cells Absolute CD19 Count T.pallidum Ab (FTA-ABS) HIV-1 RNA PCR copies/ml HIV-1 RNA (PCR) log Miscellaneous Test 09/22/18 09/22/18 09/22/18 03:01 05:27 07:00 WBC 1.8 L* RBC 3.59 L Hgb 10.1 L Hct 30.8 L Plt Count 126 L Seg Neuts % (Manual) Lymphocytes % (Manual) Monocytes % (Manual) Eosinophils % (Manual) Basophils % (Manual) Nucleated RBC % Seg Neutrophils # Man Abs Lymphs (Manual) Lymphocytes # (Manual) PT INR APTT Heparin Anti-Xa Level POC ABG pH POC ABG pCO2 32.7 L POC ABG pO2 Sodium Potassium Chloride Carbon Dioxide BUN Creatinine Glucose POC Glucose 128 H Lactic Acid Calcium Phosphorus AST ALT Total Creatine Kinase Total Protein Albumin Vitamin B12 TSH Free T4 CSF VDRL Lymph Enumerat CD4/CD8 Absolute CD3 Count % CD4 Cells Absolute CD4 Count % CD8 Cells Absolute CD19 Count T.pallidum Ab (FTA-ABS) HIV-1 RNA PCR copies/ml HIV-1 RNA (PCR) log Miscellaneous Test 09/22/18 09/22/18 09/22/18 07:00 11:32 15:52 WBC RBC Hgb Hct Plt Count Seg Neuts % (Manual) Lymphocytes % (Manual) Monocytes % (Manual) Eosinophils % (Manual) Basophils % (Manual) Nucleated RBC % Seg Neutrophils # Man Abs Lymphs (Manual) Lymphocytes # (Manual) PT INR APTT Heparin Anti-Xa Level POC ABG pH POC ABG pCO2 48.7 H POC ABG pO2 Sodium Potassium Chloride Carbon Dioxide BUN 27 H Creatinine 2.0 H Glucose 128 H POC Glucose 123 H Lactic Acid Calcium 6.9 L Phosphorus AST ALT Total Creatine Kinase Total Protein Albumin Vitamin B12 TSH Free T4 CSF VDRL Lymph Enumerat CD4/CD8 Absolute CD3 Count % CD4 Cells Absolute CD4 Count % CD8 Cells Absolute CD19 Count T.pallidum Ab (FTA-ABS) HIV-1 RNA PCR copies/ml HIV-1 RNA (PCR) log Miscellaneous Test 09/22/18 09/22/18 09/23/18 18:18 23:52 04:10 WBC RBC Hgb Hct Plt Count Seg Neuts % (Manual) Lymphocytes % (Manual) Monocytes % (Manual) Eosinophils % (Manual) Basophils % (Manual) Nucleated RBC % Seg Neutrophils # Man Abs Lymphs (Manual) Lymphocytes # (Manual) PT INR APTT Heparin Anti-Xa Level POC ABG pH POC ABG pCO2 POC ABG pO2 144 H Sodium Potassium Chloride Carbon Dioxide BUN Creatinine Glucose POC Glucose 110 H 124 H Lactic Acid Calcium Phosphorus AST ALT Total Creatine Kinase Total Protein Albumin Vitamin B12 TSH Free T4 CSF VDRL Lymph Enumerat CD4/CD8 Absolute CD3 Count % CD4 Cells Absolute CD4 Count % CD8 Cells Absolute CD19 Count T.pallidum Ab (FTA-ABS) HIV-1 RNA PCR copies/ml HIV-1 RNA (PCR) log Miscellaneous Test 09/23/18 09/23/18 09/23/18 05:55 05:55 08:10 WBC 1.3 L* RBC 3.53 L Hgb 10.0 L 9.9 L Hct 30.3 L 30.0 L Plt Count 117 L 119 L Seg Neuts % (Manual) Lymphocytes % (Manual) Monocytes % (Manual) Eosinophils % (Manual) Basophils % (Manual) Nucleated RBC % Seg Neutrophils # Man Abs Lymphs (Manual) Lymphocytes # (Manual) PT INR APTT Heparin Anti-Xa Level 0.26 L POC ABG pH POC ABG pCO2 POC ABG pO2 Sodium Potassium Chloride Carbon Dioxide BUN Creatinine Glucose POC Glucose Lactic Acid Calcium Phosphorus AST ALT Total Creatine Kinase Total Protein Albumin Vitamin B12 TSH Free T4 CSF VDRL Lymph Enumerat CD4/CD8 Absolute CD3 Count % CD4 Cells Absolute CD4 Count % CD8 Cells Absolute CD19 Count T.pallidum Ab (FTA-ABS) HIV-1 RNA PCR copies/ml HIV-1 RNA (PCR) log Miscellaneous Test 09/23/18 09/23/18 09/24/18 08:10 23:57 12:04 WBC RBC Hgb Hct Plt Count Seg Neuts % (Manual) Lymphocytes % (Manual) Monocytes % (Manual) Eosinophils % (Manual) Basophils % (Manual) Nucleated RBC % Seg Neutrophils # Man Abs Lymphs (Manual) Lymphocytes # (Manual) PT INR APTT Heparin Anti-Xa Level POC ABG pH POC ABG pCO2 POC ABG pO2 Sodium Potassium Chloride Carbon Dioxide BUN Creatinine Glucose 122 H POC Glucose 115 H 111 H Lactic Acid Calcium 6.9 L Phosphorus AST ALT Total Creatine Kinase Total Protein Albumin Vitamin B12 TSH Free T4 CSF VDRL Lymph Enumerat CD4/CD8 Absolute CD3 Count % CD4 Cells Absolute CD4 Count % CD8 Cells Absolute CD19 Count T.pallidum Ab (FTA-ABS) HIV-1 RNA PCR copies/ml HIV-1 RNA (PCR) log Miscellaneous Test 09/24/18 09/24/18 09/25/18 14:42 18:10 03:45 WBC RBC Hgb 9.7 L Hct 29.4 L Plt Count 104 L Seg Neuts % (Manual) Lymphocytes % (Manual) Monocytes % (Manual) Eosinophils % (Manual) Basophils % (Manual) Nucleated RBC % Seg Neutrophils # Man Abs Lymphs (Manual) Lymphocytes # (Manual) PT INR APTT Heparin Anti-Xa Level 0.76 H POC ABG pH POC ABG pCO2 POC ABG pO2 Sodium Potassium Chloride Carbon Dioxide BUN Creatinine Glucose POC Glucose 138 H Lactic Acid Calcium Phosphorus AST ALT Total Creatine Kinase Total Protein Albumin Vitamin B12 TSH Free T4 CSF VDRL Lymph Enumerat CD4/CD8 Absolute CD3 Count % CD4 Cells Absolute CD4 Count % CD8 Cells Absolute CD19 Count T.pallidum Ab (FTA-ABS) HIV-1 RNA PCR copies/ml HIV-1 RNA (PCR) log Miscellaneous Test 09/25/18 09/25/18 09/26/18 04:24 14:20 06:15 WBC 1.2 L* RBC 3.32 L Hgb 9.2 L Hct 28.6 L Plt Count 97 L Seg Neuts % (Manual) 24.0 L Lymphocytes % (Manual) 43.0 H Monocytes % (Manual) 19.0 H Eosinophils % (Manual) 8.0 H Basophils % (Manual) 2.0 H Nucleated RBC % 3.0 H Seg Neutrophils # Man 0.0 L Abs Lymphs (Manual) Lymphocytes # (Manual) 0.0 L PT INR APTT Heparin Anti-Xa Level POC ABG pH 7.460 H POC ABG pCO2 32.9 L POC ABG pO2 Sodium Potassium 3.5 L Chloride 110.3 H Carbon Dioxide BUN Creatinine Glucose 105 H POC Glucose Lactic Acid Calcium 6.7 L Phosphorus AST 633 H ALT 481 H Total Creatine Kinase Total Protein 4.8 L D Albumin 1.9 L Vitamin B12 TSH Free T4 CSF VDRL Lymph Enumerat CD4/CD8 Absolute CD3 Count % CD4 Cells Absolute CD4 Count % CD8 Cells Absolute CD19 Count T.pallidum Ab (FTA-ABS) HIV-1 RNA PCR copies/ml HIV-1 RNA (PCR) log Miscellaneous Test 09/26/18 09/26/18 06:15 10:43 WBC RBC Hgb Hct Plt Count Seg Neuts % (Manual) Lymphocytes % (Manual) Monocytes % (Manual) Eosinophils % (Manual) Basophils % (Manual) Nucleated RBC % Seg Neutrophils # Man Abs Lymphs (Manual) Lymphocytes # (Manual) PT INR APTT Heparin Anti-Xa Level POC ABG pH 7.459 H POC ABG pCO2 POC ABG pO2 141 H Sodium Potassium Chloride 112.8 H Carbon Dioxide BUN Creatinine Glucose 110 H POC Glucose Lactic Acid Calcium 7.0 L Phosphorus 0.90 L* AST 362 H ALT 360 H Total Creatine Kinase Total Protein 4.9 L Albumin 1.5 L Vitamin B12 TSH Free T4 CSF VDRL Lymph Enumerat CD4/CD8 Absolute CD3 Count % CD4 Cells Absolute CD4 Count % CD8 Cells Absolute CD19 Count T.pallidum Ab (FTA-ABS) HIV-1 RNA PCR copies/ml HIV-1 RNA (PCR) log Miscellaneous Test Chest x-ray: image reviewed (ETT at lower level of clavicular heads) Allied health notes reviewed: nursing
--- NOTE | 2018-09-26 11:51 | Progress Note ---
Assessment and Plan Assessment and plan: Severe Sepsis. Etiology secondary to bacterial pneumonia +/- gastroenteritis with newly diagnosed with HIV. Continue IV antibiotics per ID. Acute hypoxemic respiratory failure. Etiology secondary to sepsis/multifocal pneumonia with probable concomitant aspiration. Bilateral pneumonia. Etiology likely secondary to PJP Pneumonia +/- aspiration. Chest x-ray, CT scan reveals multifocal pneumonia. Tracheal aspirate with Nona albicans. Toxic metabolic encephalopathy. 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 Of note, MRI did not show ventriculitis. Blood CMV DNA PCR = 1,058,978. CSF YAYO virus DNA PCR neg. Gastroenteritis. Follow-up stool studies and CT scan of the abdomen and pelvis--check for colitis when patient is hemodynamically stable. Continue antibiotics per ID A. fib with RVR. Converted to NSR. PO amiodarone and heparin drip. 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 Diarrhea. Resolved, etiology likely secondary to Giardia. Giardia antigen positive in stool. CT scan as above Oral candidiasis. Continue fluconazole. HIV/AIDS. New Diagnosis. Neutropenia/thrombocytopenia. Likely from HIV myelosuppression, sepsis Prognosis is guarded. The high probability of a clinically significant, sudden or life threatening deterioration of the [cardiac, respiratory and neuro] system(s) required my full and direct attention, intervention and personal management. The aggregate critical care time was [31] minutes. This time is in addition to time spent performing reported procedures but includes the following: [x] Data Review and interpretation [x] Patient assessment and monitoring of vital signs [x] Documentation [x] Medication orders and management History Interval history: Patient is 33 yo initially presented with diarrhea, found to have pneumonia, sepsis, HIV/AIDS(new diagnosis) with CD4 count of 4. He was started on abx for PJP. His mental status has worsened with confusion, lethargy. LP done . He was diagnosed with neurosyphilis. Started on Penicillin. Closest family is sister in [place], and dr. Baltazar spoke to her several times about diagnosis but did not tell her about HIV/AIDS because of patient confidentiality. The patient decompensated on 09/20/18 with acute hypoxemic respiratory failure and worsening toxic metabolic encephalopathy requiring transfer to ICU and intubation. He now remains on mechanical ventilation. The patient was also noted to develop SVT requiring amiodarone drip as well as heparin drip. Patient has now converted back to normal sinus rhythm but remains critically ill. Hospitalist Physical - Constitutional Vitals: Temp Pulse Resp BP Pulse Ox 100 F H 75 22 119/60 99 09/26/18 08:00 09/26/18 11:22 09/26/18 11:22 09/26/18 11:22 09/26/18 11:22 General appearance: Present: severe distress, other (orally intubated) - EENT Eyes: Present: PERRL, EOM intact ENT: hearing intact, clear oral mucosa, dentition normal - Neck Neck: Present: supple, normal ROM - Respiratory Respiratory effort: normal Respiratory: bilateral: CTA - Cardiovascular Rhythm: regular Heart Sounds: Present: S1 & S2. Absent: gallop, rub - Extremities Extremities: no ischemia, No edema, Full ROM - Abdominal General gastrointestinal: soft, non-tender, non-distended, normal bowel sounds - Integumentary Integumentary: Present: clear, warm, dry - Neurologic Neurologic: CNII-XII intact, moves all extremities Results - Labs CBC & Chem 7: 09/26/18 06:15 09/26/18 06:15 Labs: Laboratory Last Values WBC 1.2 K/mm3 (4.5-11.0) L* 09/26/18 06:15 RBC 3.32 M/mm3 (3.65-5.03) L 09/26/18 06:15 Hgb 9.2 gm/dl (11.8-15.2) L 09/26/18 06:15 Hct 28.6 % (35.5-45.6) L 09/26/18 06:15 MCV 86 fl (84-94) 09/26/18 06:15 MCH 28 pg (28-32) 09/26/18 06:15 MCHC 32 % (32-34) 09/26/18 06:15 RDW 14.5 % (13.2-15.2) 09/26/18 06:15 Plt Count 97 K/mm3 (140-440) L 09/26/18 06:15 O'Brien % (Auto) Clinical Rehab Specialist 09/26/18 06:15 Add Manual Diff Complete 09/26/18 06:15 Total Counted 100 09/26/18 06:15 Seg Neutrophils % Clinical Rehab Specialist 09/26/18 06:15 Seg Neuts % (Manual) 24.0 % (40.0-70.0) L 09/26/18 06:15 Band Neutrophils % 0 % 09/26/18 06:15 Lymphocytes % (Manual) 43.0 % (13.4-35.0) H 09/26/18 06:15 Reactive Lymphs % (Man) 0 % 09/26/18 06:15 Monocytes % (Manual) 19.0 % (0.0-7.3) H 09/26/18 06:15 Eosinophils % (Manual) 8.0 % (0.0-4.3) H 09/26/18 06:15 Basophils % (Manual) 2.0 % (0.0-1.8) H 09/26/18 06:15 Metamyelocytes % 0 % 09/26/18 06:15 Myelocytes % 4.0 % 09/26/18 06:15 Promyelocytes % 0 % 09/26/18 06:15 Blast Cells % 0 % 09/26/18 06:15 Nucleated RBC % 3.0 % (0.0-0.9) H 09/26/18 06:15 Seg Neutrophils # Man 0.0 K/mm3 (1.8-7.7) L 09/26/18 06:15 Band Neutrophils # 0.0 K/mm3 09/26/18 06:15 Abs Lymphs (Manual) 309 cells/uL (850-3900) L 09/13/18 12:29 Lymphocytes # (Manual) 0.0 K/mm3 (1.2-5.4) L 09/26/18 06:15 Abs React Lymphs (Man) 0.0 K/mm3 09/26/18 06:15 Monocytes # (Manual) 0.0 K/mm3 (0.0-0.8) 09/26/18 06:15 Eosinophils # (Manual) 0.0 K/mm3 (0.0-0.4) 09/26/18 06:15 Basophils # (Manual) 0.0 K/mm3 (0.0-0.1) 09/26/18 06:15 Metamyelocytes # 0.0 K/mm3 09/26/18 06:15 Myelocytes # 0.0 K/mm3 09/26/18 06:15 Promyelocytes # 0.0 K/mm3 09/26/18 06:15 Blast Cells # 0.0 K/mm3 09/26/18 06:15 WBC Morphology Not Reportable 09/26/18 06:15 Hypersegmented Neuts Not Reportable 09/26/18 06:15 Hyposegmented Neuts Not Reportable 09/26/18 06:15 Hypogranular Neuts Not Reportable 09/26/18 06:15 Smudge Cells Not Reportable 09/26/18 06:15 Toxic Granulation Not Reportable 09/26/18 06:15 Toxic Vacuolation Not Reportable 09/26/18 06:15 Dohle Bodies Not Reportable 09/26/18 06:15 Pelger-Huet Anomaly Not Reportable 09/26/18 06:15 Giovanna Rods Not Reportable 09/26/18 06:15 Platelet Estimate Consistent w auto 09/26/18 06:15 Clumped Platelets Not Reportable 09/26/18 06:15 Plt Clumps, EDTA Not Reportable 09/26/18 06:15 Large Platelets Not Reportable 09/26/18 06:15 Giant Platelets Not Reportable 09/26/18 06:15 Platelet Satelliting Not Reportable 09/26/18 06:15 Plt Morphology Comment Not Reportable 09/26/18 06:15 RBC Morphology Not Reportable 09/26/18 06:15 Dimorphic RBCs Not Reportable 09/26/18 06:15 Polychromasia Not Reportable 09/26/18 06:15 Hypochromasia Not Reportable 09/26/18 06:15 Poikilocytosis 1+ 09/26/18 06:15 Anisocytosis 1+ 09/26/18 06:15 Microcytosis Not Reportable 09/26/18 06:15 Macrocytosis Few 09/26/18 06:15 Spherocytes Not Reportable 09/26/18 06:15 Pappenheimer Bodies Not Reportable 09/26/18 06:15 Sickle Cells Not Reportable 09/26/18 06:15 Target Cells Rare 09/26/18 06:15 Tear Drop Cells Not Reportable 09/26/18 06:15 Ovalocytes 1+ 09/26/18 06:15 Stomatocytes Few 09/21/18 04:15 Helmet Cells Not Reportable 09/26/18 06:15 [place] Bodies Not Reportable 09/26/18 06:15 [place] Rings Not Reportable 09/26/18 06:15 [place] Cells Not Reportable 09/26/18 06:15 Bite Cells Not Reportable 09/26/18 06:15 Crenated Cell Not Reportable 09/26/18 06:15 Elliptocytes 1+ 09/26/18 06:15 Acanthocytes (Spur) Not Reportable 09/26/18 06:15 Rouleaux Not Reportable 09/26/18 06:15 Hemoglobin C Crystals Not Reportable 09/26/18 06:15 Schistocytes Not Reportable 09/26/18 06:15 Malaria parasites Not Reportable 09/26/18 06:15 Kieran Bodies Not Reportable 09/26/18 06:15 Hem Pathologist Commnt No 09/26/18 06:15 PT 19.9 Sec. (12.2-14.9) H 09/21/18 15:00 INR 1.65 (0.87-1.13) H 09/21/18 15:00 APTT 40.9 Sec. (24.2-36.6) H 09/21/18 15:00 Heparin Anti-Xa Level 0.42 U.I./ml (0.3-0.7) 09/25/18 22:38 POC ABG pH 7.459 (7.35-7.45) H 09/26/18 10:43 POC ABG pCO2 35.8 (35-45) 09/26/18 10:43 POC ABG pO2 141 (80-105) H 09/26/18 10:43 POC ABG HCO3 25.4 09/26/18 10:43 POC ABG Total CO2 26 09/26/18 10:43 POC ABG O2 Sat 99 09/26/18 10:43 POC ABG Base Excess 2 09/26/18 10:43 FiO2 30 % 09/26/18 10:43 Sodium 145 mmol/L (137-145) 09/26/18 06:15 Potassium 3.7 mmol/L (3.6-5.0) 09/26/18 06:15 Chloride 112.8 mmol/L (98-107) H 09/26/18 06:15 Carbon Dioxide 27 mmol/L (22-30) 09/26/18 06:15 Anion Gap 9 mmol/L 09/26/18 06:15 BUN 13 mg/dL (9-20) 09/26/18 06:15 Creatinine 1.1 mg/dL (0.8-1.5) 09/26/18 06:15 Estimated GFR > 60 ml/min 09/26/18 06:15 BUN/Creatinine Ratio 12 % 09/26/18 06:15 Glucose 110 mg/dL (75-100) H 09/26/18 06:15 POC Glucose 98 (70-105) 09/26/18 05:05 Lactic Acid 0.90 mmol/L (0.7-2.0) 09/11/18 20:17 Calcium 7.0 mg/dL (8.4-10.2) L 09/26/18 06:15 Phosphorus 0.90 mg/dL (2.5-4.5) L* 09/26/18 06:15 Magnesium 1.80 mg/dL (1.7-2.3) 09/26/18 06:15 Total Bilirubin 0.20 mg/dL (0.1-1.2) 09/26/18 06:15 Direct Bilirubin < 0.2 mg/dL (0-0.2) 09/13/18 07:31 AST 362 units/L (5-40) H 09/26/18 06:15 ALT 360 units/L (7-56) H 09/26/18 06:15 Alkaline Phosphatase 69 units/L (35-129) 09/26/18 06:15 Ammonia 47.0 umol/L (25-60) 09/16/18 11:41 Total Creatine Kinase 685 units/L (55-170) H 09/21/18 04:25 CK-MB (CK-2) 3.5 ng/mL (0.0-4.0) 09/21/18 04:25 CK-MB (CK-2) Rel Index 0.5 (0-4) 09/21/18 04:25 NT-Pro-B Natriuret Pep 145.9 pg/mL (0-450) 09/18/18 16:07 Total Protein 4.9 g/dL (6.3-8.2) L 09/26/18 06:15 Albumin 1.5 g/dL (3.9-5) L 09/26/18 06:15 Albumin/Globulin Ratio 0.4 % 09/26/18 06:15 Vitamin B12 934.5 pg/mL (211-911) H 09/16/18 11:41 TSH 5.190 mlU/mL (0.270-4.200) H 09/18/18 12:46 Free T4 0.75 ng/dL (0.76-1.46) L 09/18/18 12:46 Urine Color [place] (Yellow) 09/11/18 Unknown Urine Turbidity Clear (Clear) 09/11/18 Unknown Urine pH 5.0 (5.0-7.0) 09/11/18 Unknown Ur Specific [place] 1.016 (1.003-1.030) 09/11/18 Unknown Urine Protein <15 mg/dl mg/dL (Negative) 09/11/18 Unknown Urine Glucose (UA) Neg mg/dL (Negative) 09/11/18 Unknown Urine Ketones Neg mg/dL (Negative) 09/11/18 Unknown Urine Blood Sm (Negative) 09/11/18 Unknown Urine Nitrite Neg (Negative) 09/11/18 Unknown Urine Bilirubin Neg (Negative) 09/11/18 Unknown Urine Urobilinogen < 2.0 mg/dL (<2.0) 09/11/18 Unknown Ur Leukocyte Esterase Neg (Negative) 09/11/18 Unknown Urine WBC (Auto) 1.0 /HPF (0.0-6.0) 09/11/18 Unknown Urine RBC (Auto) 3.0 /HPF (0.0-6.0) 09/11/18 Unknown Urine Mucus Few /HPF 09/11/18 Unknown CSF Appearance Clear 09/19/18 15:00 CSF Color Colorless 09/19/18 15:00 CSF WBC 4 /mm3 (1-10) 09/19/18 15:00 CSF RBC 583 /mm3 (0-0) 09/19/18 15:00 CSF Seg Neutrophils 21.4 % (0-6) 09/19/18 15:00 CSF Lymphocytes % 71.4 % (40-80) 09/19/18 15:00 CSF Reactive Lymphs 0 % 09/19/18 15:00 CSF Monocytes % 7.1 % (15-45) 09/19/18 15:00 CSF Eosinophils % 0 % 09/19/18 15:00 CSF Basophils 0 % 09/19/18 15:00 CSF Pathologist Review C 09/19/18 15:00 CSF Glucose 32 mg/dL 09/19/18 15:00 CSF Total Protein 123 mg/dL 09/19/18 15:00 CSF VDRL Reactive 1:4 (Nonreactive) H 09/19/18 15:00 Vancomycin Trough 14.3 ug/mL (5.0-20.0) 09/25/18 14:45 Urine Opiates Screen Presumptive negative 09/17/18 15:52 Urine Methadone Screen Presumptive negative 09/17/18 15:52 Ur Barbiturates Screen Presumptive negative 09/17/18 15:52 Ur Phencyclidine Scrn Presumptive negative 09/17/18 15:52 Ur Amphetamines Screen Presumptive negative 09/17/18 15:52 U Benzodiazepines Scrn Presumptive negative 09/17/18 15:52 Urine Cocaine Screen Presumptive negative 09/17/18 15:52 U Marijuana (THC) Screen Presumptive negative 09/17/18 15:52 Drugs of Abuse Note Disclamer 09/17/18 15:52 Lymph Enumerat CD4/CD8 0.01 (0.86-5.00) L 09/13/18 12:29 % CD3 Cells 71 % (57-85) 09/13/18 12:29 Absolute CD3 Count 220 cells/uL (840-3060) L 09/13/18 12:29 % CD4 Cells 1 % (30-61) L 09/13/18 12:29 Absolute CD4 Count 4 cells/uL (490-1740) L 09/13/18 12:29 % CD8 Cells 70 % (12-42) H 09/13/18 12:29 Absolute CD8 Count 216 cells/uL (180-1170) 09/13/18 12:29 % CD19 Cells 17 % (6-29) 09/13/18 12:29 Absolute CD19 Count 54 cells/uL (110-660) L 09/13/18 12:29 RPR Titer 1:16 09/13/18 12:29 RPR Reactive (Nonreactive) 09/13/18 12:29 T.pallidum Ab (FTA-ABS) Reactive (Nonreactive) H 09/14/18 16:34 C. 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 See scanned result 09/16/18 12:03 Hepatitis A IgM Ab Non-reactive (NonReactive) 09/13/18 12:29 Hep Bs Antigen Non-reactive (Negative) 09/13/18 12:29 Hep B Core IgM Ab Non-reactive (NonReactive) 09/13/18 12:29 Hepatitis C Antibody Non-reactive (NonReactive) 09/13/18 12:29 HIV-1 Antibody See scanned result 09/11/18 19:14 HIV-1 RNA PCR copies/ml 44545 Copies/mL H 09/13/18 12:29 HIV-1 RNA (PCR) log 4.71 Log cps/mL H 09/13/18 12:29 HIV-2 Ab (Immunoblot) See scanned result 09/11/18 19:14 HIV 1&2 Antibody Rapid Reactive (Non React) 09/11/18 19:14 HIV P24 Antigen Non react (Non React) 09/11/18 19:14 Influenza A (Rapid) Negative (Negative) 09/13/18 16:05 Influenza A (RT-PCR) Negative (Negative) 09/13/18 16:05 Influenza B (Rapid) Negative (Negative) 09/13/18 16:05 Influenza B (RT-PCR) Negative (Negative) 09/13/18 16:05 Toxoplasma IgG Ab <7.20 IU/mL (<7.20) 09/16/18 12:09 Miscellaneous Test see below 09/21/18 03:55 Nutrition/Malnutrition Assess - Dietary Evaluation Nutrition/Malnutrition Findings: Nutrition Notes Start: 09/12/18 17:45 Freq: Status: Active Protocol: Document 09/23/18 10:40 TW (Rec: 09/23/18 10:57 TW [id number]) Co-Sign 09/23/18 10:40 OL Nutrition Notes Initial or Follow up Reassessment Current Diagnosis Sepsis Other Pertinent Diagnosis Newly dx HIV, Bilat pneu Current Diet Osmolite 1.5 at 50mL/hr Labs/Tests BUN 27 Cr 2 Pertinent Medications Reviewed Height 6 ft Weight 103.6 kg [place] Body Weight (kg) 80.90 BMI 30.9 Subjective/Other Information F/U for TF tolerance/ need for TF change. Noted TF running at goal (60mL/hr). Per RN pt is tolerating TF well. Percent of energy/protein needs met: 100%/55% Burn Absent Trauma Absent #2 Nutrition Diagnosis Inadequate oral intake Etiology vent status As Evidenced by Signs and Symptoms pt requiring EN #1 Nutrition Diagnosis Malnutrition Diagnosis Progress(for reassessment Continues documentation) Is patient on ventilator? Yes Is Patient Ambulatory and/or Out of Bed No REE-([facility]-confined to bed) 2424.720 Kcal/Kg value to use for calculation 14 Approximate Energy Requirements Using 1450 kcal/Kg Calculation Used for Recommendations Kcal/kg Additional Notes Pro needs 162g/day (2g/kg IBW) Fluid needs 1ml/kcal Nutrition Intervention Change Diet Order: Continue TF Nutrition Support: Vital HP at 60mL/hr Water flush of 50mL q4h Kcal 1,440 Protein (gm) 126 Fluid (mL) 1,204 Goal #1 Meet 75-100% of nutrient needs via PO intake Anticipated Discharge Needs: Unable to determine at this time Follow-Up By: 09/26/18 Additional Comments F/U: TF tolerance
--- NOTE | 2018-09-26 12:50 | Progress Note ---
Assessment and Plan Patient is on by mouth amiodarone and maintained sinus rhythm. remains intubated. continue medical management as per the primary care team, patient is on heparin gtt, awaiting decision on vent as patient may need to be trached. The patient has been seen in conjunction with Dr. Caesar Zapata who agrees with the assessment and plan of care. - Patient Problems (1) Acute respiratory failure Current Visit: Yes Status: Acute (2) Atrial fibrillation and flutter Current Visit: Yes Status: Resolved (3) Sepsis Current Visit: Yes Status: Acute (4) HIV (human immunodeficiency virus infection) Current Visit: Yes Status: Chronic (5) AIDS Current Visit: Yes Status: Suspected (6) Neurosyphilis Current Visit: Yes Status: Acute (7) Neutropenia Current Visit: Yes Status: Acute (8) Pneumonia Current Visit: Yes Status: Acute (9) Diarrhea Current Visit: Yes Status: Acute (10) Bradycardia Current Visit: Yes Status: Acute (11) Hypothyroidism Current Visit: Yes Status: Suspected (12) Encephalopathy Current Visit: Yes Status: Acute Subjective Date of service: 09/26/18 Principal diagnosis: Severe sepsis; Ac hypoxemic Resp failure; [place]. Pneumonia; Ac encephalopathy Interval history: pt remains intubated. in SR. no family members at bedside. Objective Last Vital Signs Temp 100 F H 09/26/18 08:00 Pulse 82 09/26/18 12:00 Resp 23 09/26/18 12:00 BP 120/67 09/26/18 12:00 Pulse Ox 100 09/26/18 12:00 - Physical Examination General: Other (intubated) HEENT: Positive: PERRL Neck: Positive: neck supple. Negative: JVD/HJR Cardiac: Positive: Reg Rate and Rhythm, S1/S2 Lungs: Positive: Decreased Breath Sounds, Ventilated Respirations Neuro: Positive: Other (intubated) Abdomen: Positive: Unremarkable Skin: Negative: Rash Musculoskeletal: No Fluid Collection, Normal Range of Motion Extremities: Present: edema, +1 Edema - Labs and Meds Cardiac Enzymes 09/25/18 09/26/18 Range/Units 14:20 06:15 AST 633 H 362 H (5-40) units/L CBC 09/26/18 Range/Units 06:15 WBC 1.2 L* (4.5-11.0) K/mm3 RBC 3.32 L (3.65-5.03) M/mm3 Hgb 9.2 L (11.8-15.2) gm/dl Hct 28.6 L (35.5-45.6) % Plt Count 97 L (140-440) K/mm3 Comprehensive Metabolic Panel 09/25/18 09/26/18 Range/Units 14:20 06:15 Sodium 143 145 (137-145) mmol/L Potassium 3.5 L 3.7 (3.6-5.0) mmol/L Chloride 110.3 H 112.8 H (98-107) mmol/L Carbon Dioxide 25 27 (22-30) mmol/L BUN 12 13 (9-20) mg/dL Creatinine 1.0 1.1 (0.8-1.5) mg/dL Glucose 105 H 110 H (75-100) mg/dL Calcium 6.7 L 7.0 L (8.4-10.2) mg/dL AST 633 H 362 H (5-40) units/L ALT 481 H 360 H (7-56) units/L Alkaline Phosphatase 73 69 (35-129) units/L Total Protein 4.8 L D 4.9 L (6.3-8.2) g/dL Albumin 1.9 L 1.5 L (3.9-5) g/dL - Imaging and Cardiology EKG: report reviewed, image reviewed Echo: report reviewed ( normal LV, no significant valvular abnormalities. ) - Telemetry EKG Rhythm: Sinus Rhythm - EKG Sinus rhythms and dysrhythmias: sinus rhythm, sinus arrest or pause (Patient had very transient junctional rythm at rate of 35/mt,with sinus pause,lasted< one minute,reverted to judson S.R at >90/mt at 08:12 AM,09/18/2018.) - Allied health notes Allied health notes reviewed: nursing
[2018-09-26] MEDS ORDERED: PANCREAZE DR 10,500 UNIT FEEDTUBE PRN (14:18)
[2018-09-26] MEDS ORDERED: SODIUM BICARBONATE FEEDTUBE PRN (14:18)
[2018-09-26] MEDS ORDERED: SIMPLE SYRUP FEEDTUBE PRN ×2 (14:18)
--- NOTE | 2018-09-26 15:07 | Progress Note ---
Assessment and Plan Cultures: 09/11/2018 blood culture: no growth 09/13/2018 serum cryptococcus ag neg 09/14/2018 CSF cryptococcus ag neg 09/14/2018 stool Nona 09/15/2018 stool +Giardia ag 09/19/2018 CSF cryptococcus ag neg 09/21/2018 tracheal aspirate culture: Nona albicans 09/23/2018 blood culture: No growth 09/23/2018 Fungal blood culture: no growth thus far A/P: 33 y/o male with no PMH; admitted on 09/11/2018 due to 4 days-AMS/behavioral changes, nausea, voimiting, diarrhea, weight loss and cough: 1) Septic shock: etiology unclear. cultures negative thus far, remains on expanded coverage for now. 2) Disseminated CMV viremia: continue IV Ganciclovir, will increase dose today given improvement in renal function. Monitor for worsening leucopenia. Given issues with renal function, will hold off on addition of foscarnet. Will order repeat CMV DNA PCR for tomorrow, would expect no significant change in the log value in the first week. Transaminitis could be from CMV v/s shock liver, improving. 3) Acute respiratory failure: likely multifactorial from multifocal pneumonia +/- volume overload. PJP DFA negative. Continue Atovaquone. 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 Of note, MRI did not show ventriculitis. Blood CMV DNA PCR = 1,058,978. CSF YAYO virus DNA PCR neg. Toxo IgG negative. 5) Neurosyphilis: CSF VDRL positive, was on Penicillin G, given decline in clinical condition, and to avoid double beta-lactam abx and increased seizure risk, continue high dose IV Ceftriaxone which does have activity against Treponema pallidum. 6) Diarrhea: likely due to Giardiasis as Giardia antigen positive in stool, in immunocompromised patient, on flagyl. Continues to be present, so continue Flagyl. 7) Oral candidiasis: better, on fluconazole. 8) A.fib with RVR, now back to sinus: cardiology following. On Amiodarone. 9) HIV/AIDS: newly diagnosed. Risk factor is MSM behavior. CD4=4. VL=50,700 10) Neutropenia/thrombocytopenia: possibly from HIV/CMV myelosuppression +/- sepsis. Can also get worse from ganciclovir. r/o disseminated MAC 11) MAL: ? polypharmacy (bactrim) improved. Nephrology following. Recs: - continue IV Ganciclovir to 5 mg/kg q12 hrs - continue IV Ceftriaxone 2 gm q12 hrs, IV Vancomycin for now - continue IV Flagyl - continue atovaquone and azithromycin - continue fluconazole D13 - f/u CMV DNA PCR Will follow. Please call with questions. Maurizio Lopez MD [facility] C: [phone] O: [phone] F: [phone] Subjective Date of service: 09/26/18 Principal diagnosis: Severe sepsis; Ac hypoxemic Resp failure; [place]. Pneumonia; Ac encephalopathy Interval history: Remains intubated, on the vent. Remains off pressors, low grade temperatures +. Per RN, occasionally follows commands. Diarrhea continues. Objective - Exam Narrative Exam: Physical Exam: Constitutional: intubated, on the event. Head, Ears, Nose: Normocephalic, atraumatic. Eyes: Conjunctivae/corneas clear. No icterus. No ptosis. Neck: Supple, no meningeal signs Oral: intubated Cardiovascular: S1, S2 normal. Respiratory: Good air entry, clear to auscultation bilaterally GI: Soft, bowel sounds normal. No peritoneal signs, rectal tube present with diarrhea Musculoskeletal: No pedal edema, no cyanosis. Skin: No rash or abscess Hem/Lymphatic: No palpable cervical or supraclavicular nodes. No lymphangitis Psych: no agitation Neurological: sedated, intubated - Constitutional Vitals: Vital Signs Temp Pulse Resp BP Pulse Ox 100 F H 91 H 23 118/69 100 09/26/18 12:00 09/26/18 14:17 09/26/18 14:17 09/26/18 14:00 09/26/18 14:00 Temperature -Last 24 Hours Temperature 100 F Temperature 100 F Temperature 99.8 F Temperature 100.7 F Temperature 100.8 F Temperature 98.5 F Temperature 98.5 F - Labs CBC & Chem 7: 09/26/18 06:15 09/26/18 06:15 Labs: Abnormal lab results 09/26/18 09/26/18 09/26/18 Range/Units 06:15 06:15 10:43 WBC 1.2 L* (4.5-11.0) K/mm3 RBC 3.32 L (3.65-5.03) M/mm3 Hgb 9.2 L (11.8-15.2) gm/dl Hct 28.6 L (35.5-45.6) % Plt Count 97 L (140-440) K/mm3 Seg Neuts % (Manual) 24.0 L (40.0-70.0) % Lymphocytes % (Manual) 43.0 H (13.4-35.0) % Monocytes % (Manual) 19.0 H (0.0-7.3) % Eosinophils % (Manual) 8.0 H (0.0-4.3) % Basophils % (Manual) 2.0 H (0.0-1.8) % Nucleated RBC % 3.0 H (0.0-0.9) % Seg Neutrophils # Man 0.0 L (1.8-7.7) K/mm3 Lymphocytes # (Manual) 0.0 L (1.2-5.4) K/mm3 POC ABG pH 7.459 H (7.35-7.45) POC ABG pO2 141 H (80-105) Chloride 112.8 H (98-107) mmol/L Glucose 110 H (75-100) mg/dL Calcium 7.0 L (8.4-10.2) mg/dL Phosphorus 0.90 L* (2.5-4.5) mg/dL AST 362 H (5-40) units/L ALT 360 H (7-56) units/L Total Protein 4.9 L (6.3-8.2) g/dL Albumin 1.5 L (3.9-5) g/dL - Imaging and cardiology Chest x-ray: report reviewed, image reviewed (stable, no interval change from prior.)
[2018-09-26] MEDS ORDERED: KPHOS 15 MMOL in NACL 0.9% 250ML 250 ML IV ONE (21:00)
[2018-09-27] MEDS: CYTOVENE 500 MG in NACL 0.9% 250ML 250 ML IV SCH ×2 (00:27→12:49)
--- NOTE | 2018-09-27 02:11 | XRay Report ---
FINAL REPORT PROCEDURE: XR CHEST 1V AP TECHNIQUE: Chest radiograph anteroposterior view. CPT 59992 HISTORY: follow up respiratory failure COMPARISON: No prior studies are available for comparison. FINDINGS: Heart: Normal. Mediastinum/Vessels: Normal. Lungs/Pleural space: The lungs are expanded. There are patchy infiltrates in the right lung. There is no pleural effusion or pneumothorax per. Bony thorax: No acute osseous abnormality. Life support devices: There is an endotracheal tube in the mid trachea. There is an NG tube in the st omach. There is a right-sided PICC line. The tip is in the superior vena cava.. IMPRESSION: The heart size is normal. The lungs are expanded. There are patchy infiltrates in the right lung. There is no pleural effusion or pneumothorax per. There is an endotracheal tube in the mid trachea. There is an NG tube in the stomach. There is a righ t-sided PICC line. The tip is in the superior vena cava..
[2018-09-27] MEDS: PROVENTIL IH SCH ×4 (02:21→19:18)
[2018-09-27] MEDS: VANCOMYCIN 1,500 MG in NACL 0.9% 500 ML 500 ML IV SCH (03:09)
[2018-09-27] MEDS: LOPRESSOR IV SCH ×4 (03:09→20:36)
[2018-09-27 04:23] LABS: Hematocrit 29.1 % (35.5-45.6); Hemoglobin 9.1 gm/dl (11.8-15.2)
[2018-09-27] MEDS: ROBINUL PO SCH ×3 (05:22→21:51)
[2018-09-27] MEDS: FLAGYL PO SCH ×3 (05:22→21:51)
[2018-09-27] MEDS: SYNTHROID PO SCH (05:22)
[2018-09-27] MEDS: HEPARIN/ 0.45% NACL-25,000 UNIT/500 ML 25,000 UNIT/500 ML BAG IV SCH (06:27)
--- NOTE | 2018-09-27 07:28 | Progress Note ---
Assessment and Plan - Patient Problems (1) Acute kidney failure with tubular necrosis Current Visit: Yes Status: Acute Plan to address problem: Overall renal function is stable. Need for close monitoring while receiving IV ganciclovir. Remains non oliguric. Continue to monitor. Renal function labs pending this am. (2) Acute respiratory failure with hypoxia Current Visit: Yes Status: Acute Plan to address problem: Remains intubated. Chest xray noted from last night, with development of patchy infiltrates in the right lung. Further management per pulm/ICU (3) Hypokalemia Current Visit: Yes Status: Acute Plan to address problem: Replete per protocol to maintain levels above 3.5. 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 Will continue to monitor. (5) Pancytopenia Current Visit: Yes Status: Acute Plan to address problem: In the setting of CMV viremia, HIV/AIDS. (6) HIV (human immunodeficiency virus infection) Current Visit: Yes Status: Chronic Plan to address problem: Management per ID recommendations. Subjective Date of service: 09/27/18 Principal diagnosis: Severe sepsis; Ac hypoxemic Resp failure; [place]. Pneumonia; Ac encephalopathy Interval history: No acute events overnight. Labs pending this am. Remains non oliguric with ~900cc UO overnight. Objective - Vital Signs Vital signs: Vital Signs - 12hr 09/26/18 09/26/18 09/26/18 19:26 19:30 19:33 Temperature 98.8 F Pulse Rate 88 90 Pulse Rate [ Anterior Bilateral Throughout] Pulse Rate [ From Monitor] Respiratory 22 20 Rate Respiratory Rate [Anterior Bilateral Throughout] Blood Pressure 131/71 130/75 O2 Sat by Pulse 100 100 Oximetry 09/26/18 09/26/18 09/26/18 19:50 20:00 20:30 Temperature Pulse Rate 90 87 Pulse Rate [ 83 Anterior Bilateral Throughout] Pulse Rate [ 85 From Monitor] Respiratory 23 25 H Rate Respiratory 22 Rate [Anterior Bilateral Throughout] Blood Pressure 120/62 121/65 O2 Sat by Pulse 100 100 Oximetry 09/26/18 09/26/18 09/26/18 21:00 21:30 21:55 Temperature Pulse Rate 86 81 87 Pulse Rate [ Anterior Bilateral Throughout] Pulse Rate [ From Monitor] Respiratory 23 24 Rate Respiratory Rate [Anterior Bilateral Throughout] Blood Pressure 120/63 126/68 124/66 O2 Sat by Pulse 100 100 Oximetry 09/26/18 09/26/18 09/26/18 22:00 22:30 23:00 Temperature Pulse Rate 82 82 80 Pulse Rate [ Anterior Bilateral Throughout] Pulse Rate [ From Monitor] Respiratory 24 18 24 Rate Respiratory Rate [Anterior Bilateral Throughout] Blood Pressure 117/65 111/65 108/58 O2 Sat by Pulse 100 100 100 Oximetry 09/26/18 09/26/18 09/26/18 23:14 23:20 23:26 Temperature 98.9 F Pulse Rate 82 82 Pulse Rate [ Anterior Bilateral Throughout] Pulse Rate [ From Monitor] Respiratory 12 23 Rate Respiratory Rate [Anterior Bilateral Throughout] Blood Pressure 110/63 103/69 O2 Sat by Pulse 100 100 Oximetry 09/26/18 09/27/18 09/27/18 23:30 00:00 00:30 Temperature Pulse Rate 81 78 84 Pulse Rate [ Anterior Bilateral Throughout] Pulse Rate [ 79 From Monitor] Respiratory 21 20 20 Rate Respiratory Rate [Anterior Bilateral Throughout] Blood Pressure 106/57 111/70 112/65 O2 Sat by Pulse 100 100 100 Oximetry 09/27/18 09/27/18 09/27/18 01:00 01:34 02:00 Temperature Pulse Rate 80 83 81 Pulse Rate [ Anterior Bilateral Throughout] Pulse Rate [ From Monitor] Respiratory 22 23 Rate Respiratory Rate [Anterior Bilateral Throughout] Blood Pressure 106/73 106/73 106/65 O2 Sat by Pulse 100 100 Oximetry 09/27/18 09/27/18 09/27/18 02:15 02:30 03:00 Temperature Pulse Rate 80 80 Pulse Rate [ 82 Anterior Bilateral Throughout] Pulse Rate [ From Monitor] Respiratory 25 H 25 H Rate Respiratory 24 Rate [Anterior Bilateral Throughout] Blood Pressure 118/67 115/63 O2 Sat by Pulse 100 100 Oximetry 09/27/18 09/27/18 09/27/18 03:09 03:18 03:30 Temperature 98.4 F Pulse Rate 78 78 74 Pulse Rate [ Anterior Bilateral Throughout] Pulse Rate [ From Monitor] Respiratory 8 L 15 Rate Respiratory Rate [Anterior Bilateral Throughout] Blood Pressure 115/63 103/60 105/61 O2 Sat by Pulse 100 100 Oximetry 09/27/18 09/27/18 09/27/18 04:00 04:30 05:00 Temperature Pulse Rate 76 76 77 Pulse Rate [ Anterior Bilateral Throughout] Pulse Rate [ 74 From Monitor] Respiratory 19 20 19 Rate Respiratory Rate [Anterior Bilateral Throughout] Blood Pressure 98/54 105/69 107/57 O2 Sat by Pulse 100 100 100 Oximetry 09/27/18 09/27/18 09/27/18 05:30 06:00 06:10 Temperature Pulse Rate 81 82 81 Pulse Rate [ Anterior Bilateral Throughout] Pulse Rate [ From Monitor] Respiratory 19 17 20 Rate Respiratory Rate [Anterior Bilateral Throughout] Blood Pressure 116/67 104/66 116/67 O2 Sat by Pulse 100 100 100 Oximetry 09/27/18 06:30 Temperature Pulse Rate 81 Pulse Rate [ Anterior Bilateral Throughout] Pulse Rate [ From Monitor] Respiratory 18 Rate Respiratory Rate [Anterior Bilateral Throughout] Blood Pressure 115/62 O2 Sat by Pulse 100 Oximetry - General Appearance General appearance: chronically ill, sedated on ventilator, intubated, frail EENT: ATNC, PERRL Neck: no JVD, no thyromegaly Respiratory: Present: Clear to Ascultation Cardiology: regular, S1S2 Gastrointestinal: normal, normoactive bowel sounds Integumentary: no rash, warm and dry Neurologic: other (does not follow commands, spontaneously opens eyes per nursing staff, response to tactile stimuli) Musculoskeletal: other (mild edema in LE ) - Lab 09/27/18 04:11 09/26/18 06:15 Most recent lab results Calcium 7.0 mg/dL (8.4-10.2) L 09/26/18 06:15 Phosphorus 3.10 mg/dL (2.5-4.5) D 09/27/18 04:11 Magnesium 1.80 mg/dL (1.7-2.3) 09/26/18 06:15 - Imaging Chest x-ray: report reviewed - Allied health notes Allied health notes reviewed: nursing Medications & Allergies - Medications Allergies/Adverse Reactions: Allergies No Known Allergies Allergy (Unverified 09/11/18 17:50) Active Medications: Generic Name Dose Route Start Last Admin Trade Name Freq PRN Reason Stop Dose Admin Acetaminophen 650 mg 09/11/18 19:30 09/23/18 08:41 Tylenol PO 650 mg Q4H PRN Administration Pain MILD(1-3)/Fever >100.5/RIVERA Acetaminophen 650 mg 09/21/18 07:39 Tylenol CA Q4H PRN Fever >101 Albuterol 2.5 mg 09/11/18 19:30 09/16/18 06:09 Proventil IH 2.5 mg Q4HRT PRN Administration Shortness Of Breath Albuterol 2.5 mg 09/20/18 20:00 09/27/18 02:21 Proventil IH 2.5 mg Q6HRT GIA Administration Amiodarone HCl 400 mg 09/23/18 11:00 09/26/18 21:57 Cordarone PO 400 mg BID GIA Administration Lipase/Protease/Amylase 1 each 09/26/18 14:[address] 10,500 Unit FEEDTUBE PRN PRN For Clogged Feeding Tube Atovaquone 750 mg 09/21/18 10:00 09/26/18 21:58 Mepron PO 750 mg BID GIA Administration Azithromycin 1,200 mg 09/25/18 10:00 09/25/18 10:00 Zithromax PO 1,200 mg [place] GIA Administration Famotidine 20 mg 09/24/18 10:00 09/26/18 21:58 Pepcid PO 20 mg BID GIA Administration Fentanyl 50 mcg 09/21/18 01:46 09/24/18 15:45 Sublimaze IV 50 mcg Q10MIN PRN Administration ANALGESIA Glycopyrrolate 2 mg 09/23/18 15:00 09/27/18 05:22 Robinul PO 2 mg Q8HR GIA Administration Hydrophilic Ointment 1 applic 09/21/18 01:46 09/22/18 03:46 Vaseline Lip Therapy TP 1 applic Q2HR PRN Administration Dry Lips Fluconazole 200 mls @ 100 mls/hr 09/13/18 14:00 09/26/18 10:15 Diflucan IV 100 mls/hr Q24HR GIA Administration Protocol Fentanyl Citrate 2,000 mcg in 100 mls @ 5.16 mls/hr 09/21/18 02:00 Fentanyl Drip Premix IV TITR GIA Protocol 1 MCG/KG/HR Midazolam HCl 100 mg/ Sodium 100 mls @ 2 mls/hr 09/21/18 02:00 09/21/18 15:39 Chloride IV 0 mg/hr TITR GIA 0 mls/hr Titration Protocol 2 MG/HR Heparin Sodium/Sodium Chloride 25,000 unit in 500 mls @ 30 mls/hr 09/21/18 11:00 09/27/18 06:27 Heparin/ 0.45% Nacl-25,000 Unit/500 Ml IV 1,300 units/hr TITR GIA 26 mls/hr Administration Protocol 1,500 UNITS/HR Norepinephrine 4 mg in 250 mls @ 7.5 mls/hr 09/22/18 16:00 09/23/18 15:25 Levophed Drip 4 Mg/Ns 250 Ml IV Infused TITR GIA Titration Protocol 2 MCG/MIN Ganciclovir Sodium 500 mg/ 250 mls @ 100 mls/hr 09/23/18 13:00 09/27/18 00:27 Sodium Chloride IV 100 mls/hr Q12H GIA Administration Ceftriaxone Sodium 2 gm in 100 mls @ 200 mls/hr 09/23/18 13:00 09/26/18 22:38 Rocephin/Ns 2 Gm/100 Ml IV 200 mls/hr Q12HR GIA Administration Protocol Vancomycin HCl 1,500 mg/ 530 mls @ 333.333 mls/hr 09/24/18 03:00 09/27/18 03:09 Sodium Chloride IV 333.333 mls/hr Q12H GIA Administration Levothyroxine Sodium 25 mcg 09/19/18 06:00 09/27/18 05:22 Synthroid PO 25 mcg DAILY@0600 GIA Administration Metoprolol Tartrate 5 mg 09/21/18 03:00 09/27/18 03:09 Lopressor IV 5 mg Q6H GIA Administration Metronidazole 500 mg 09/26/18 14:00 09/27/18 05:22 Flagyl PO 500 mg Q8HR GIA Administration Protocol Midazolam HCl 2 mg 09/21/18 01:46 09/25/18 03:08 Versed IV 2 mg Q10MIN PRN Administration Sedation Multi-Ingred Cream/Lotion/Oil/Oint 1 applic 09/21/18 01:46 Artificial Tears Ophth Oint OU Q4HR PRN Dry Eye(s) Ondansetron HCl 4 mg 09/11/18 19:30 Zofran IV Q8H PRN Nausea And Vomiting Scopolamine 1 each 09/18/18 18:00 09/24/18 17:53 Transderm-Scop TD 1 each Q3D GIA Administration Simple Syrup 15 ml 09/26/18 14:18 Simple Syrup FEEDTUBE PRN PRN Hypoglycemia Simple Syrup 30 ml 09/26/18 14:18 Simple Syrup FEEDTUBE PRN PRN Hypoglycemia Sodium Bicarbonate 325 mg 09/26/18 14:18 Sodium Bicarbonate FEEDTUBE PRN PRN For Clogged Feeding Tube Sodium Chloride 10 ml 09/11/18 22:00 09/26/18 21:58 Sodium Chloride Flush Syringe 10 Ml IV 10 ml BID GIA Administration Sodium Chloride 10 ml 09/11/18 19:30 Sodium Chloride Flush Syringe 10 Ml IV PRN PRN LINE FLUSH
[2018-09-27] MEDS: DIFLUCAN 200 ML IV SCH (09:10)
[2018-09-27] MEDS: ROCEPHIN/NS 2 GM/100 ML 2 GM/100 ML BAG IV SCH ×2 (09:10→21:52)
[2018-09-27] MEDS: PEPCID PO SCH ×2 (09:11→21:51)
[2018-09-27] MEDS: MEPRON PO SCH ×2 (09:11→21:52)
[2018-09-27] MEDS: CORDARONE PO SCH ×3 (09:11→21:51)
[2018-09-27] MEDS: SODIUM CHLORIDE FLUSH SYRINGE 10 ML IV SCH ×2 (09:12→21:52)
--- NOTE | 2018-09-27 09:15 | Progress Note ---
Assessment and Plan Assessment and plan: Severe Sepsis. Etiology secondary to bacterial pneumonia +/- gastroenteritis with newly diagnosed with HIV. Continue IV antibiotics per ID. Acute hypoxemic respiratory failure. Etiology secondary to sepsis/multifocal pneumonia with probable concomitant aspiration. Intubated, on vent. Pulm following Bilateral pneumonia. Etiology likely secondary to PJP Pneumonia +/- aspiration. Chest x-ray, CT scan reveals multifocal pneumonia. Tracheal aspirate with Nona albicans. Toxic metabolic encephalopathy. 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 Of note, MRI did not show ventriculitis. Blood CMV DNA PCR = 1,058,978. CSF YAYO virus DNA PCR neg. Gastroenteritis. Follow-up stool studies and CT scan of the abdomen and pelvis--check for colitis when patient is hemodynamically stable. Continue antibiotics per ID A. fib with RVR. Converted to NSR. PO amiodarone and heparin drip. 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 Diarrhea. Resolved, etiology likely secondary to Giardia. Giardia antigen positive in stool. CT scan as above Oral candidiasis. Continue fluconazole. HIV/AIDS. New Diagnosis. Neutropenia/thrombocytopenia. Likely from HIV myelosuppression, sepsis Prognosis is guarded. The high probability of a clinically significant, sudden or life threatening deterioration of the [4] system(s) required my full and direct attention, inte rvention and personal management. The aggregate critical care time was [33] minutes. This time is in addition to time spent performing reported procedures but includes the following: [x] Data Review and interpretation [x] Patient assessment and monitoring of vital signs [x] Documentation [x] Medication orders and management History Interval history: Patient transferred to ICU,now intubated, on vent Fever Hospitalist Physical - Physical exam Narrative exam: GEN: Intubated, on ventilator HEENT: Normocephalic, atraumatic, Neck: supple, No JVD Lungs: Bilateral coarse breath sounds, Heart:S1 and S2 regular, no murmurs, rubs or gallop, Abd:soft, non tender, non distended, normal bowel sounds Ext: No edema, no clubbing or cyanosis Neuro: Intubated - Constitutional Vitals: Temp Pulse Resp BP Pulse Ox 98.2 F 90 24 112/59 100 09/27/18 08:00 09/27/18 09:12 09/27/18 08:31 09/27/18 09:12 09/27/18 08:31 General appearance: Present: severe distress, other (orally intubated) Results - Labs CBC & Chem 7: 09/27/18 04:11 09/26/18 06:15 Labs: Laboratory Last Values WBC 1.2 K/mm3 (4.5-11.0) L* 09/26/18 06:15 RBC 3.32 M/mm3 (3.65-5.03) L 09/26/18 06:15 Hgb 9.1 gm/dl (11.8-15.2) L 09/27/18 04:11 Hct 29.1 % (35.5-45.6) L 09/27/18 04:11 MCV 86 fl (84-94) 09/26/18 06:15 MCH 28 pg (28-32) 09/26/18 06:15 MCHC 32 % (32-34) 09/26/18 06:15 RDW 14.5 % (13.2-15.2) 09/26/18 06:15 Plt Count 96 K/mm3 (140-440) L 09/27/18 04:11 [place] % (Auto) Certified Professional Midwife 09/26/18 06:15 Add Manual Diff Complete 09/26/18 06:15 Total Counted 100 09/26/18 06:15 Seg Neutrophils % Certified Professional Midwife 09/26/18 06:15 Seg Neuts % (Manual) 24.0 % (40.0-70.0) L 09/26/18 06:15 Band Neutrophils % 0 % 09/26/18 06:15 Lymphocytes % (Manual) 43.0 % (13.4-35.0) H 09/26/18 06:15 Reactive Lymphs % (Man) 0 % 09/26/18 06:15 Monocytes % (Manual) 19.0 % (0.0-7.3) H 09/26/18 06:15 Eosinophils % (Manual) 8.0 % (0.0-4.3) H 09/26/18 06:15 Basophils % (Manual) 2.0 % (0.0-1.8) H 09/26/18 06:15 Metamyelocytes % 0 % 09/26/18 06:15 Myelocytes % 4.0 % 09/26/18 06:15 Promyelocytes % 0 % 09/26/18 06:15 Blast Cells % 0 % 09/26/18 06:15 Nucleated RBC % 3.0 % (0.0-0.9) H 09/26/18 06:15 Seg Neutrophils # Man 0.0 K/mm3 (1.8-7.7) L 09/26/18 06:15 Band Neutrophils # 0.0 K/mm3 09/26/18 06:15 Abs Lymphs (Manual) 309 cells/uL (850-3900) L 09/13/18 12:29 Lymphocytes # (Manual) 0.0 K/mm3 (1.2-5.4) L 09/26/18 06:15 Abs React Lymphs (Man) 0.0 K/mm3 09/26/18 06:15 Monocytes # (Manual) 0.0 K/mm3 (0.0-0.8) 09/26/18 06:15 Eosinophils # (Manual) 0.0 K/mm3 (0.0-0.4) 09/26/18 06:15 Basophils # (Manual) 0.0 K/mm3 (0.0-0.1) 09/26/18 06:15 Metamyelocytes # 0.0 K/mm3 09/26/18 06:15 Myelocytes # 0.0 K/mm3 09/26/18 06:15 Promyelocytes # 0.0 K/mm3 09/26/18 06:15 Blast Cells # 0.0 K/mm3 09/26/18 06:15 WBC Morphology Not Reportable 09/26/18 06:15 Hypersegmented Neuts Not Reportable 09/26/18 06:15 Hyposegmented Neuts Not Reportable 09/26/18 06:15 Hypogranular Neuts Not Reportable 09/26/18 06:15 Smudge Cells Not Reportable 09/26/18 06:15 Toxic Granulation Not Reportable 09/26/18 06:15 Toxic Vacuolation Not Reportable 09/26/18 06:15 Dohle Bodies Not Reportable 09/26/18 06:15 Pelger-Huet Anomaly Not Reportable 09/26/18 06:15 Giovanna Rods Not Reportable 09/26/18 06:15 Platelet Estimate Consistent w auto 09/26/18 06:15 Clumped Platelets Not Reportable 09/26/18 06:15 Plt Clumps, EDTA Not Reportable 09/26/18 06:15 Large Platelets Not Reportable 09/26/18 06:15 Giant Platelets Not Reportable 09/26/18 06:15 Platelet Satelliting Not Reportable 09/26/18 06:15 Plt Morphology Comment Not Reportable 09/26/18 06:15 RBC Morphology Not Reportable 09/26/18 06:15 Dimorphic RBCs Not Reportable 09/26/18 06:15 Polychromasia Not Reportable 09/26/18 06:15 Hypochromasia Not Reportable 09/26/18 06:15 Poikilocytosis 1+ 09/26/18 06:15 Anisocytosis 1+ 09/26/18 06:15 Microcytosis Not Reportable 09/26/18 06:15 Macrocytosis Few 09/26/18 06:15 Spherocytes Not Reportable 09/26/18 06:15 Pappenheimer Bodies Not Reportable 09/26/18 06:15 Sickle Cells Not Reportable 09/26/18 06:15 Target Cells Rare 09/26/18 06:15 Tear Drop Cells Not Reportable 09/26/18 06:15 Ovalocytes 1+ 09/26/18 06:15 Stomatocytes Few 09/21/18 04:15 Helmet Cells Not Reportable 09/26/18 06:15 [place] Bodies Not Reportable 09/26/18 06:15 [place] Rings Not Reportable 09/26/18 06:15 [place] Cells Not Reportable 09/26/18 06:15 Bite Cells Not Reportable 09/26/18 06:15 Crenated Cell Not Reportable 09/26/18 06:15 Elliptocytes 1+ 09/26/18 06:15 Acanthocytes (Spur) Not Reportable 09/26/18 06:15 Rouleaux Not Reportable 09/26/18 06:15 Hemoglobin C Crystals Not Reportable 09/26/18 06:15 Schistocytes Not Reportable 09/26/18 06:15 Malaria parasites Not Reportable 09/26/18 06:15 Kieran Bodies Not Reportable 09/26/18 06:15 Hem Pathologist Commnt No 02/11/19 06:15 PT 19.9 Sec. (12.2-14.9) H 09/21/18 15:00 INR 1.65 (0.87-1.13) H 09/21/18 15:00 APTT 40.9 Sec. (24.2-36.6) H 09/21/18 15:00 Heparin Anti-Xa Level 0.61 U.I./ml (0.3-0.7) 09/26/18 21:30 POC ABG pH 7.459 (7.35-7.45) H 09/26/18 10:43 POC ABG pCO2 35.8 (35-45) 09/26/18 10:43 POC ABG pO2 141 (80-105) H 09/26/18 10:43 POC ABG HCO3 25.4 09/26/18 10:43 POC ABG Total CO2 26 09/26/18 10:43 POC ABG O2 Sat 99 09/26/18 10:43 POC ABG Base Excess 2 09/26/18 10:43 FiO2 30 % 09/26/18 10:43 Sodium 145 mmol/L (137-145) 09/26/18 06:15 Potassium 3.7 mmol/L (3.6-5.0) 09/26/18 06:15 Chloride 112.8 mmol/L (98-107) H 09/26/18 06:15 Carbon Dioxide 27 mmol/L (22-30) 09/26/18 06:15 Anion Gap 9 mmol/L 09/26/18 06:15 BUN 13 mg/dL (9-20) 09/26/18 06:15 Creatinine 1.1 mg/dL (0.8-1.5) 09/26/18 06:15 Estimated GFR > 60 ml/min 09/26/18 06:15 BUN/Creatinine Ratio 12 % 09/26/18 06:15 Glucose 110 mg/dL (75-100) H 09/26/18 06:15 POC Glucose 93 (70-105) 09/27/18 04:55 Lactic Acid 0.90 mmol/L (0.7-2.0) 09/11/18 20:17 Calcium 7.0 mg/dL (8.4-10.2) L 09/26/18 06:15 Phosphorus 3.10 mg/dL (2.5-4.5) D 09/27/18 04:11 Magnesium 1.80 mg/dL (1.7-2.3) 09/26/18 06:15 Total Bilirubin 0.20 mg/dL (0.1-1.2) 09/26/18 06:15 Direct Bilirubin < 0.2 mg/dL (0-0.2) 09/13/18 07:31 AST 362 units/L (5-40) H 09/26/18 06:15 ALT 360 units/L (7-56) H 09/26/18 06:15 Alkaline Phosphatase 69 units/L (35-129) 09/26/18 06:15 Ammonia 47.0 umol/L (25-60) 09/16/18 11:41 Total Creatine Kinase 685 units/L (55-170) H 09/21/18 04:25 CK-MB (CK-2) 3.5 ng/mL (0.0-4.0) 09/21/18 04:25 CK-MB (CK-2) Rel Index 0.5 (0-4) 09/21/18 04:25 NT-Pro-B Natriuret Pep 145.9 pg/mL (0-450) 09/18/18 16:07 Total Protein 4.9 g/dL (6.3-8.2) L 09/26/18 06:15 Albumin 1.5 g/dL (3.9-5) L 09/26/18 06:15 Albumin/Globulin Ratio 0.4 % 09/26/18 06:15 Vitamin B12 934.5 pg/mL (211-911) H 09/16/18 11:41 TSH 5.190 mlU/mL (0.270-4.200) H 09/18/18 12:46 Free T4 0.75 ng/dL (0.76-1.46) L 09/18/18 12:46 Urine Color [place] (Yellow) 09/11/18 Unknown Urine Turbidity Clear (Clear) 09/11/18 Unknown Urine pH 5.0 (5.0-7.0) 09/11/18 Unknown Ur Specific [place] 1.016 (1.003-1.030) 09/11/18 Unknown Urine Protein <15 mg/dl mg/dL (Negative) 09/11/18 Unknown Urine Glucose (UA) Neg mg/dL (Negative) 09/11/18 Unknown Urine Ketones Neg mg/dL (Negative) 09/11/18 Unknown Urine Blood Sm (Negative) 09/11/18 Unknown Urine Nitrite Neg (Negative) 09/11/18 Unknown Urine Bilirubin Neg (Negative) 09/11/18 Unknown Urine Urobilinogen < 2.0 mg/dL (<2.0) 09/11/18 Unknown Ur Leukocyte Esterase Neg (Negative) 09/11/18 Unknown Urine WBC (Auto) 1.0 /HPF (0.0-6.0) 09/11/18 Unknown Urine RBC (Auto) 3.0 /HPF (0.0-6.0) 09/11/18 Unknown Urine Mucus Few /HPF 09/11/18 Unknown CSF Appearance Clear 09/19/18 15:00 CSF Color Colorless 09/19/18 15:00 CSF WBC 4 /mm3 (1-10) 09/19/18 15:00 CSF RBC 583 /mm3 (0-0) 09/19/18 15:00 CSF Seg Neutrophils 21.4 % (0-6) 09/19/18 15:00 CSF Lymphocytes % 71.4 % (40-80) 09/19/18 15:00 CSF Reactive Lymphs 0 % 09/19/18 15:00 CSF Monocytes % 7.1 % (15-45) 09/19/18 15:00 CSF Eosinophils % 0 % 09/19/18 15:00 CSF Basophils 0 % 09/19/18 15:00 CSF Pathologist Review C 09/19/18 15:00 CSF Glucose 32 mg/dL 09/19/18 15:00 CSF Total Protein 123 mg/dL 09/19/18 15:00 CSF VDRL Reactive 1:4 (Nonreactive) H 09/19/18 15:00 Vancomycin Trough 14.3 ug/mL (5.0-20.0) 09/25/18 14:45 Urine Opiates Screen Presumptive negative 09/17/18 15:52 Urine Methadone Screen Presumptive negative 09/17/18 15:52 Ur Barbiturates Screen Presumptive negative 09/17/18 15:52 Ur Phencyclidine Scrn Presumptive negative 09/17/18 15:52 Ur Amphetamines Screen Presumptive negative 09/17/18 15:52 U Benzodiazepines Scrn Presumptive negative 09/17/18 15:52 Urine Cocaine Screen Presumptive negative 09/17/18 15:52 U Marijuana (THC) Screen Presumptive negative 09/17/18 15:52 Drugs of Abuse Note Disclamer 09/17/18 15:52 Lymph Enumerat CD4/CD8 0.01 (0.86-5.00) L 09/13/18 12:29 % CD3 Cells 71 % (57-85) 09/13/18 12:29 Absolute CD3 Count 220 cells/uL (840-3060) L 09/13/18 12:29 % CD4 Cells 1 % (30-61) L 09/13/18 12:29 Absolute CD4 Count 4 cells/uL (490-1740) L 09/13/18 12:29 % CD8 Cells 70 % (12-42) H 09/13/18 12:29 Absolute CD8 Count 216 cells/uL (180-1170) 09/13/18 12:29 % CD19 Cells 17 % (6-29) 09/13/18 12:29 Absolute CD19 Count 54 cells/uL (110-660) L 09/13/18 12:29 RPR Titer 1:16 09/13/18 12:29 RPR Reactive (Nonreactive) 09/13/18 12:29 T.pallidum Ab (FTA-ABS) Reactive (Nonreactive) H 09/14/18 16:34 C. difficile Toxin A&B Negative (Negative) 09/12/18 05:30 CMV DNA PCR log photocopy operator/mL See scanned result 09/16/18 12:03 Hepatitis A IgM Ab Non-reactive (NonReactive) 09/13/18 12:29 Hep Bs Antigen Non-reactive (Negative) 09/13/18 12:29 Hep B Core IgM Ab Non-reactive (NonReactive) 09/13/18 12:29 Hepatitis C Antibody Non-reactive (NonReactive) 09/13/18 12:29 HIV-1 Antibody See scanned result 09/11/18 19:14 HIV-1 RNA PCR copies/ml 21395 Copies/mL H 09/13/18 12:29 HIV-1 RNA (PCR) log 4.71 Log cps/mL H 09/13/18 12:29 HIV-2 Ab (Immunoblot) See scanned result 09/11/18 19:14 HIV 1&2 Antibody Rapid Reactive (Non React) 09/11/18 19:14 HIV P24 Antigen Non react (Non React) 09/11/18 19:14 Influenza A (Rapid) Negative (Negative) 09/13/18 16:05 Influenza A (RT-PCR) Negative (Negative) 09/13/18 16:05 Influenza B (Rapid) Negative (Negative) 09/13/18 16:05 Influenza B (RT-PCR) Negative (Negative) 09/13/18 16:05 Toxoplasma IgG Ab <7.20 IU/mL (<7.20) 09/16/18 12:09 Miscellaneous Test see below 09/21/18 03:55 Nutrition/Malnutrition Assess - Dietary Evaluation Nutrition/Malnutrition Findings: Nutrition Notes Start: 09/12/18 17:45 Freq: Status: Active Protocol: Document 09/26/18 13:54 SANDY (Rec: 09/26/18 14:18 SANDY [email or web address]) Nutrition Notes Initial or Follow up Reassessment Current Diagnosis Acute Kidney Injury Sepsis Respiratory Failure Other Pertinent Diagnosis HIV, bilat pneu, gastroenteritis, encephalopathy Current Diet TF - Vital High Protein at 60ml/hr Labs/Tests Phos 0.9 Pertinent Medications 250mg KPhos four times daily; 40mmol KPhos x 1 iv dose; 15mmol KPhos x 1 iv dose Height 6 ft Weight 113.1 kg [place] Body Weight (kg) 80.90 BMI 33.7 Weight change and time frame Current wt obtained from bed scale Subjective/Other Information Observed Osmolite 1.5 infusing at 60ml/hr via DHT. RN informed that TF formula should be Vital High Protein. Pt remains on vent support; has rectal tube. Percent of energy/protein needs met: 85% energy 56% pro Burn Absent Trauma Absent #2 Nutrition Diagnosis Inadequate oral intake Diagnosis Progress(for reassessment Continues documentation) #1 Nutrition Diagnosis Malnutrition Diagnosis Progress(for reassessment Continues documentation) Is patient on ventilator? Yes Is Patient Ambulatory and/or Out of Bed No REE-([facility]-confined to bed) 2538.612 Kcal/Kg value to use for calculation 15 Approximate Energy Requirements Using 1697 kcal/Kg Calculation Used for Recommendations Kcal/kg Additional Notes Pro needs 2g/kg IBW: 162g/day Fluid needs 1ml/kcal Nutrition Intervention Nutrition Support: Increase TF goal rate to 70ml/ hr. Provide 50ml water flush q4h. Kcal 1,680 Protein (gm) 147 Fluid (mL) 1,404 Goal #1 TF tolerance Goal #2 TF to meet 65-70% energy and at least 80% pro needs Follow-Up By: 09/27/18 Additional Comments F/U: TF formula change and goal rate increase
--- NOTE | 2018-09-27 13:19 | Progress Note ---
Assessment and Plan Cultures: 09/11/2018 blood culture: no growth 09/13/2018 serum cryptococcus ag neg 09/14/2018 CSF cryptococcus ag neg 09/14/2018 stool Nona 09/15/2018 stool +Giardia ag 09/19/2018 CSF cryptococcus ag neg 09/21/2018 tracheal aspirate culture: Nona albicans 09/23/2018 blood culture: No growth 09/23/2018 Fungal blood culture: no growth thus far A/P: 33 y/o male with no PMH; admitted on 09/11/2018 due to 4 days-AMS/behavioral changes, nausea, voimiting, diarrhea, weight loss and cough: 1) Septic shock: etiology unclear. cultures negative thus far, remains on expanded coverage, but with no MRSA growth, and clinical stability, will d/c Vancomycin. 2) Disseminated CMV viremia: continue IV Ganciclovir, will increase dose today given improvement in renal function. Monitor for worsening leucopenia. Given issues with renal function, will hold off on addition of foscarnet. Will order repeat CMV DNA PCR for tomorrow, would expect no significant change in the log value in the first week. Transaminitis could be from CMV v/s shock liver, improving. 3) Acute respiratory failure: likely multifactorial from multifocal pneumonia +/- volume overload. PJP DFA negative. Continue Atovaquone. 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 Of note, MRI did not show ventriculitis. Blood CMV DNA PCR = 1,058,978. CSF YAYO virus DNA PCR neg. Toxo IgG negative. 5) Neurosyphilis: CSF VDRL positive, was on Penicillin G, given decline in clinical condition, and to avoid double beta-lactam abx and increased seizure risk, continue high dose IV Ceftriaxone which does have activity against Treponema pallidum. 6) Diarrhea: likely due to Giardiasis as Giardia antigen positive in stool, in immunocompromised patient, on flagyl. Continues to be present, so continue Flagyl. 7) Oral candidiasis: better, on fluconazole. 8) A.fib with RVR, now back to sinus: cardiology following. On Amiodarone. 9) HIV/AIDS: newly diagnosed. Risk factor is MSM behavior. CD4=4. VL=50,700 10) Neutropenia/thrombocytopenia: possibly from HIV/CMV myelosuppression +/- sepsis. Can also get worse from ganciclovir. r/o disseminated MAC 11) MAL: ? polypharmacy (bactrim) improved. Nephrology following. Recs: - discontinued Vancomycin - continue IV Ganciclovir to 5 mg/kg q12 hrs - continue IV Ceftriaxone 2 gm q12 hrs - continue IV Flagyl for diarrhea from Giardiasis - continue atovaquone and azithromycin prophylaxis - continue fluconazole D14, will plan for 21 days of therapy to also cover for esophagitis - f/u CMV DNA PCR - recheck CBC, BMP in AM Will follow. Please call with questions. Maurizio Lopez MD [facility] C: [phone] O: [phone] F: [phone] Subjective Date of service: 09/27/18 Principal diagnosis: Severe sepsis; Ac hypoxemic Resp failure; [place]. Pneumonia; Ac encephalopathy Interval history: No fever. Remains off pressors. Stable diarrhea, has rectal tube. Remains on the vent. Objective - Exam Narrative Exam: Physical Exam: Constitutional: intubated, on the event, more awake, obeying commands Head, Ears, Nose: Normocephalic, atraumatic. Eyes: Conjunctivae/corneas clear. No icterus. No ptosis. Neck: Supple, no meningeal signs Oral: intubated Cardiovascular: S1, S2 normal. Respiratory: Good air entry, clear to auscultation bilaterally GI: Soft, bowel sounds normal. No peritoneal signs, rectal tube present with diarrhea Musculoskeletal: No pedal edema, no cyanosis. Skin: No rash or abscess Hem/Lymphatic: No palpable cervical or supraclavicular nodes. No lymphangitis Psych: no agitation Neurological: intubated, on the vent, obeying basic commands - Constitutional Vitals: Vital Signs Temp Pulse Resp BP Pulse Ox 98.1 F 77 15 115/69 100 09/27/18 12:00 09/27/18 13:02 09/27/18 13:02 09/27/18 13:02 09/27/18 13:02 Temperature -Last 24 Hours Temperature 98.1 F Temperature 98.2 F Temperature 98.4 F Temperature 98.9 F Temperature 98.8 F Temperature 99.1 F - Labs CBC & Chem 7: 09/27/18 04:11 09/26/18 06:15 Labs: Abnormal lab results 09/13/18 09/26/18 09/27/18 Range/Units 12:29 13:56 04:11 Hgb 9.1 L (11.8-15.2) gm/dl Hct 29.1 L (35.5-45.6) % Plt Count 96 L (140-440) K/mm3 POC Glucose 135 H (70-105) Miscellaneous Test Flexitest 1 H - Imaging and cardiology Chest x-ray: report reviewed, image reviewed (appears stable, don't see any obvious pneumonia)
--- NOTE | 2018-09-27 13:22 | Progress Note ---
Assessment and Plan Patient is on by mouth amiodarone and maintained sinus rhythm, reduce dosage. remains intubated. continue medical management as per the primary care team, patient is on heparin gtt, awaiting decision on vent as patient may need to be trached. The patient has been seen in conjunction with Dr. INGRID Zapata who agrees with the assessment and plan of care. - Patient Problems (1) Acute respiratory failure Current Visit: Yes Status: Acute (2) Atrial fibrillation and flutter Current Visit: Yes Status: Resolved (3) Sepsis Current Visit: Yes Status: Acute (4) HIV (human immunodeficiency virus infection) Current Visit: Yes Status: Chronic (5) AIDS Current Visit: Yes Status: Suspected (6) Neurosyphilis Current Visit: Yes Status: Acute (7) Neutropenia Current Visit: Yes Status: Acute (8) Pneumonia Current Visit: Yes Status: Acute (9) Diarrhea Current Visit: Yes Status: Acute (10) Bradycardia Current Visit: Yes Status: Acute (11) Hypothyroidism Current Visit: Yes Status: Suspected (12) Encephalopathy Current Visit: Yes Status: Acute Subjective Date of service: 09/27/18 Principal diagnosis: Severe sepsis; Ac hypoxemic Resp failure; [place]. Pneumonia; Ac encephalopathy Interval history: pt remains intubated. in SR. no family members at bedside. Objective Last Vital Signs Temp 98.1 F 09/27/18 12:00 Pulse 77 09/27/18 13:02 Resp 15 09/27/18 13:02 BP 115/69 09/27/18 13:02 Pulse Ox 100 09/27/18 13:02 - Physical Examination General: Other (intubated) HEENT: Positive: PERRL Neck: Positive: neck supple. Negative: JVD/HJR Cardiac: Positive: Reg Rate and Rhythm, S1/S2 Lungs: Positive: Decreased Breath Sounds Neuro: Positive: Other (intubated) Abdomen: Positive: Unremarkable Skin: Negative: Rash Musculoskeletal: No Fluid Collection, Normal Range of Motion Extremities: Present: edema, +1 Edema - Labs and Meds CBC 09/27/18 Range/Units 04:11 Hgb 9.1 L (11.8-15.2) gm/dl Hct 29.1 L (35.5-45.6) % Plt Count 96 L (140-440) K/mm3 - Imaging and Cardiology EKG: report reviewed, image reviewed Echo: report reviewed ( normal LV, no significant valvular abnormalities. ) - EKG Sinus rhythms and dysrhythmias: sinus rhythm, sinus arrest or pause (Patient had very transient junctional rythm at rate of 35/mt,with sinus pause,lasted< one minute,reverted to judson S.R at >90/mt at 08:12 AM,09/18/2018.) - Allied health notes Allied health notes reviewed: nursing
--- NOTE | 2018-09-27 14:38 | Progress Note ---
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) Elevated LFTs Neutropenia Thrombocytopenia (His mental status is still the rate limiting step to safe extubation for now) - advance ETT to 26 cm NIKA - hold all sedating medications (fentanyl discontinued as well as versed) - ETT day # 8; will continue daytime SBT's for now while following mental status - serum PO4 aggressively replaced to optimize respiratory muscle function - continue anti-infective's per ID recs - get ABG in 2 hours and reassess mental status - begin low dose reglan re: reported increased residuals - continue supplemental oxygen to keep sats > 90% - continue bronchodilators with pulmonary Continue empiric and targeted anti- infective's per ID recs antibiotics per ID - continue set rate at 12/min - continue daily SBT's - daily SAT's - continue Robinul 2 mg q8h for secretions - IV amiodarone stopped - cardiology evaluation ongoing - diarrhea improved - continue fluconazole for candidiasis - watch for drug-drug interactions - continue enteral nutrition as tolerated - begin fentanyl drip for agitation and to help secure ETT (target RASS 0 to -1) - PT/OT/ROM exercises as tolerated - mobility protocol for pressure ulcer prophylaxis - continue GI & VTE prophylaxis - continue other care per attending / other consultants ....... care plan discussed at length with next-of-kin at bedside ...... re-evaluate in am & prn The high probability of a clinically significant, sudden or life threatening deterioration of the [cardiac, respiratory and neurologic] system(s) required my full and direct attention, intervention and personal management. The aggregate critical care time was [34] minutes. This time is in addition to time spent performing reported procedures but includes the following: [x] Data Review and interpretation [x] Patient assessment and monitoring of vital signs [x] Documentation [x] Medication orders and management Subjective Date of service: 09/27/18 Principal diagnosis: Severe sepsis; Ac hypoxemic Resp failure; [place]. Pneumonia; Ac encephalopathy Interval history: Patient is seen today for: Severe sepsis (present on admission with fever, tachycardia, hypotension and elevated lactate); Acute hypoxemic Respiratory failure; Bilateral pneumonia; Acute encephalopathy (Toxic / Metabolic); Atrial Fibrillation with RVR Seen and examined at bedside; 24hour events reviewed; nursing and respiratory care staff consulted; no adverse overnight events reported to me; resting peacefully in bed; remains lethargic even more-so than yesterday; not following prompts well today; he is tolerating PSV trial well so far today though; no emesis or overt aspiration; no seizures and no high grade fevers Objective Vital Signs - 12hr 09/27/18 09/27/18 09/27/18 03:00 03:09 03:18 Temperature Pulse Rate 80 78 78 Pulse Rate [ Anterior Bilateral Throughout] Pulse Rate [ From Monitor] Pulse Rate [ Throughout] Respiratory 25 H 8 L Rate Respiratory Rate [Anterior Bilateral Throughout] Respiratory Rate [ Throughout] Blood Pressure 115/63 115/63 103/60 O2 Sat by Pulse 100 100 Oximetry 09/27/18 09/27/18 09/27/18 03:30 04:00 04:30 Temperature 98.4 F Pulse Rate 74 76 76 Pulse Rate [ Anterior Bilateral Throughout] Pulse Rate [ 74 From Monitor] Pulse Rate [ Throughout] Respiratory 15 19 20 Rate Respiratory Rate [Anterior Bilateral Throughout] Respiratory Rate [ Throughout] Blood Pressure 105/61 98/54 105/69 O2 Sat by Pulse 100 100 100 Oximetry 09/27/18 09/27/18 09/27/18 05:00 05:30 06:00 Temperature Pulse Rate 77 81 82 Pulse Rate [ Anterior Bilateral Throughout] Pulse Rate [ From Monitor] Pulse Rate [ Throughout] Respiratory 19 19 17 Rate Respiratory Rate [Anterior Bilateral Throughout] Respiratory Rate [ Throughout] Blood Pressure 107/57 116/67 104/66 O2 Sat by Pulse 100 100 100 Oximetry 09/27/18 09/27/18 09/27/18 06:10 06:30 07:00 Temperature Pulse Rate 81 81 84 Pulse Rate [ Anterior Bilateral Throughout] Pulse Rate [ From Monitor] Pulse Rate [ Throughout] Respiratory 20 18 20 Rate Respiratory Rate [Anterior Bilateral Throughout] Respiratory Rate [ Throughout] Blood Pressure 116/67 115/62 103/63 O2 Sat by Pulse 100 100 100 Oximetry 09/27/18 09/27/18 09/27/18 07:30 08:00 08:30 Temperature 98.2 F Pulse Rate 76 82 83 Pulse Rate [ Anterior Bilateral Throughout] Pulse Rate [ 82 From Monitor] Pulse Rate [ Throughout] Respiratory 18 17 17 Rate Respiratory Rate [Anterior Bilateral Throughout] Respiratory Rate [ Throughout] Blood Pressure 113/61 108/60 114/65 O2 Sat by Pulse 100 100 100 Oximetry 09/27/18 09/27/18 09/27/18 08:31 08:45 09:00 Temperature Pulse Rate 83 90 Pulse Rate [ 88 Anterior Bilateral Throughout] Pulse Rate [ From Monitor] Pulse Rate [ 83 Throughout] Respiratory 24 18 Rate Respiratory 22 Rate [Anterior Bilateral Throughout] Respiratory 20 Rate [ Throughout] Blood Pressure 114/65 112/59 O2 Sat by Pulse 100 100 Oximetry 09/27/18 09/27/18 09/27/18 09:12 09:30 10:00 Temperature Pulse Rate 90 81 76 Pulse Rate [ Anterior Bilateral Throughout] Pulse Rate [ From Monitor] Pulse Rate [ Throughout] Respiratory 17 19 Rate Respiratory Rate [Anterior Bilateral Throughout] Respiratory Rate [ Throughout] Blood Pressure 112/59 111/65 109/62 O2 Sat by Pulse 100 100 Oximetry 09/27/18 09/27/18 09/27/18 10:30 12:00 13:02 Temperature 98.1 F Pulse Rate 77 77 Pulse Rate [ Anterior Bilateral Throughout] Pulse Rate [ From Monitor] Pulse Rate [ Throughout] Respiratory 17 15 Rate Respiratory Rate [Anterior Bilateral Throughout] Respiratory Rate [ Throughout] Blood Pressure 108/61 115/69 O2 Sat by Pulse 100 100 Oximetry Constitutional: lethargic, agitated, appears uncomfortable, other (orally intubated ETT at 23cm) Eyes: non-icteric ENT: oropharynx moist, other (ETT 24 cm NIKA) Neck: supple, no lymphadenopathy Effort: mildly labored Ascultation: Bilateral: rhonchi Percussion: Bilateral: not dull Cardiovascular: regular rate and rhythm, other (S1,S2, no murmurs, gallps or rubs) Gastrointestinal: normoactive bowel sounds, soft, non-tender, non-distended Integumentary: rash Extremities: no cyanosis, pulses normal, no ischemia or petechiae, edema Neurologic: pupils equal and round, motor strength normal and (weak though) Psychiatric: other (unable to assess) CBC and BMP: 09/27/18 04:11 09/26/18 06:15 ABG, PT/INR, D-dimer: ABG POC ABG pH 7.459 (7.35-7.45) H 09/26/18 10:43 POC ABG pCO2 35.8 (35-45) 09/26/18 10:43 POC ABG pO2 141 (80-105) H 09/26/18 10:43 POC ABG HCO3 25.4 09/26/18 10:43 POC ABG Total CO2 26 09/26/18 10:43 POC ABG O2 Sat 99 09/26/18 10:43 PT/INR, D-dimer PT 19.9 Sec. (12.2-14.9) H 09/21/18 15:00 INR 1.65 (0.87-1.13) H 09/21/18 15:00 Abnormal lab findings: Abnormal Labs 09/11/18 09/11/18 09/11/18 18:00 18:00 18:00 WBC 1.9 L* RBC Hgb Hct Plt Count 130 L Seg Neuts % (Manual) Lymphocytes % (Manual) Monocytes % (Manual) 16.0 H Eosinophils % (Manual) Basophils % (Manual) Nucleated RBC % Seg Neutrophils # Man 0.9 L Abs Lymphs (Manual) Lymphocytes # (Manual) 0.5 L PT INR APTT Heparin Anti-Xa Level POC ABG pH POC ABG pCO2 POC ABG pO2 Sodium 131 L Potassium Chloride Carbon Dioxide 17 L BUN 21 H Creatinine Glucose 126 H POC Glucose Lactic Acid 2.60 H* Calcium 8.1 L Phosphorus AST 123 H ALT 115 H Total Creatine Kinase Total Protein Albumin 3.0 L Vitamin B12 TSH Free T4 CSF VDRL Lymph Enumerat CD4/CD8 Absolute CD3 Count % CD4 Cells Absolute CD4 Count % CD8 Cells Absolute CD19 Count T.pallidum Ab (FTA-ABS) HIV-1 RNA PCR copies/ml HIV-1 RNA (PCR) log Miscellaneous Test 09/11/18 09/13/18 09/13/18 19:01 04:28 07:31 WBC 2.0 L RBC Hgb Hct Plt Count 116 L Seg Neuts % (Manual) Lymphocytes % (Manual) Monocytes % (Manual) 8.0 H Eosinophils % (Manual) Basophils % (Manual) Nucleated RBC % Seg Neutrophils # Man 1.0 L Abs Lymphs (Manual) Lymphocytes # (Manual) 0.5 L PT INR APTT Heparin Anti-Xa Level POC ABG pH POC ABG pCO2 POC ABG pO2 Sodium Potassium Chloride 110.4 H Carbon Dioxide 19 L BUN Creatinine Glucose POC Glucose Lactic Acid 3.70 H* Calcium 7.9 L Phosphorus AST ALT Total Creatine Kinase Total Protein Albumin Vitamin B12 TSH Free T4 CSF VDRL Lymph Enumerat CD4/CD8 Absolute CD3 Count % CD4 Cells Absolute CD4 Count % CD8 Cells Absolute CD19 Count T.pallidum Ab (FTA-ABS) HIV-1 RNA PCR copies/ml HIV-1 RNA (PCR) log Miscellaneous Test 09/13/18 09/13/18 09/13/18 07:31 12:29 12:29 WBC RBC Hgb Hct Plt Count Seg Neuts % (Manual) Lymphocytes % (Manual) Monocytes % (Manual) Eosinophils % (Manual) Basophils % (Manual) Nucleated RBC % Seg Neutrophils # Man Abs Lymphs (Manual) 309 L Lymphocytes # (Manual) PT INR APTT Heparin Anti-Xa Level POC ABG pH POC ABG pCO2 POC ABG pO2 Sodium Potassium Chloride Carbon Dioxide BUN Creatinine Glucose POC Glucose Lactic Acid Calcium Phosphorus AST 70 H ALT 68 H Total Creatine Kinase Total Protein Albumin 2.5 L Vitamin B12 TSH Free T4 CSF VDRL Lymph Enumerat CD4/CD8 0.01 L Absolute CD3 Count 220 L % CD4 Cells 1 L Absolute CD4 Count 4 L % CD8 Cells 70 H Absolute CD19 Count 54 L T.pallidum Ab (FTA-ABS) HIV-1 RNA PCR copies/ml 65610 H HIV-1 RNA (PCR) log 4.71 H Miscellaneous Test 09/13/18 09/14/18 09/14/18 12:29 07:17 16:34 WBC RBC Hgb Hct Plt Count Seg Neuts % (Manual) Lymphocytes % (Manual) Monocytes % (Manual) Eosinophils % (Manual) Basophils % (Manual) Nucleated RBC % Seg Neutrophils # Man Abs Lymphs (Manual) Lymphocytes # (Manual) PT INR APTT Heparin Anti-Xa Level POC ABG pH POC ABG pCO2 POC ABG pO2 Sodium Potassium 3.4 L Chloride Carbon Dioxide 18 L BUN Creatinine Glucose 104 H POC Glucose Lactic Acid Calcium 7.6 L Phosphorus AST 49 H ALT Total Creatine Kinase Total Protein Albumin 2.5 L Vitamin B12 TSH Free T4 CSF VDRL Lymph Enumerat CD4/CD8 Absolute CD3 Count % CD4 Cells Absolute CD4 Count % CD8 Cells Absolute CD19 Count T.pallidum Ab (FTA-ABS) Reactive H HIV-1 RNA PCR copies/ml HIV-1 RNA (PCR) log Miscellaneous Test Flexitest 1 H 09/15/18 09/15/18 09/15/18 05:05 05:05 Unknown WBC 1.6 L* RBC Hgb 10.4 L Hct 31.1 L D Plt Count 113 L Seg Neuts % (Manual) Lymphocytes % (Manual) Monocytes % (Manual) Eosinophils % (Manual) Basophils % (Manual) Nucleated RBC % Seg Neutrophils # Man Abs Lymphs (Manual) Lymphocytes # (Manual) PT INR APTT Heparin Anti-Xa Level POC ABG pH POC ABG pCO2 POC ABG pO2 Sodium Potassium Chloride 107.9 H Carbon Dioxide 18 L BUN 6 L Creatinine Glucose POC Glucose Lactic Acid Calcium 7.4 L Phosphorus AST ALT Total Creatine Kinase Total Protein Albumin Vitamin B12 TSH Free T4 CSF VDRL Reactive 1:8 H Lymph Enumerat CD4/CD8 Absolute CD3 Count % CD4 Cells Absolute CD4 Count % CD8 Cells Absolute CD19 Count T.pallidum Ab (FTA-ABS) HIV-1 RNA PCR copies/ml HIV-1 RNA (PCR) log Miscellaneous Test 09/16/18 09/16/18 09/16/18 06:55 11:41 11:41 WBC 2.8 L RBC Hgb 10.9 L Hct 33.5 L Plt Count 135 L Seg Neuts % (Manual) Lymphocytes % (Manual) Monocytes % (Manual) Eosinophils % (Manual) Basophils % (Manual) Nucleated RBC % Seg Neutrophils # Man Abs Lymphs (Manual) Lymphocytes # (Manual) PT INR APTT Heparin Anti-Xa Level POC ABG pH POC ABG pCO2 POC ABG pO2 Sodium Potassium Chloride Carbon Dioxide BUN Creatinine Glucose POC Glucose Lactic Acid Calcium Phosphorus AST ALT Total Creatine Kinase Total Protein Albumin Vitamin B12 TSH 4.210 H Free T4 0.72 L CSF VDRL Lymph Enumerat CD4/CD8 Absolute CD3 Count % CD4 Cells Absolute CD4 Count % CD8 Cells Absolute CD19 Count T.pallidum Ab (FTA-ABS) HIV-1 RNA PCR copies/ml HIV-1 RNA (PCR) log Miscellaneous Test 09/16/18 09/16/18 09/17/18 11:41 15:43 05:13 WBC 2.0 L RBC Hgb 10.9 L Hct 32.7 L Plt Count Seg Neuts % (Manual) Lymphocytes % (Manual) Monocytes % (Manual) Eosinophils % (Manual) Basophils % (Manual) Nucleated RBC % Seg Neutrophils # Man Abs Lymphs (Manual) Lymphocytes # (Manual) PT INR APTT Heparin Anti-Xa Level POC ABG pH POC ABG pCO2 29.3 L POC ABG pO2 70 L Sodium Potassium Chloride Carbon Dioxide BUN Creatinine Glucose POC Glucose Lactic Acid Calcium Phosphorus AST ALT Total Creatine Kinase Total Protein Albumin Vitamin B12 934.5 H TSH Free T4 CSF VDRL Lymph Enumerat CD4/CD8 Absolute CD3 Count % CD4 Cells Absolute CD4 Count % CD8 Cells Absolute CD19 Count T.pallidum Ab (FTA-ABS) HIV-1 RNA PCR copies/ml HIV-1 RNA (PCR) log Miscellaneous Test 09/17/18 09/17/18 09/18/18 05:13 21:57 12:46 WBC RBC Hgb Hct Plt Count Seg Neuts % (Manual) Lymphocytes % (Manual) Monocytes % (Manual) Eosinophils % (Manual) Basophils % (Manual) Nucleated RBC % Seg Neutrophils # Man Abs Lymphs (Manual) Lymphocytes # (Manual) PT INR APTT Heparin Anti-Xa Level POC ABG pH POC ABG pCO2 POC ABG pO2 Sodium Potassium Chloride 107.2 H Carbon Dioxide 21 L BUN 3 L Creatinine 0.7 L Glucose POC Glucose 108 H Lactic Acid Calcium 7.9 L Phosphorus AST ALT Total Creatine Kinase Total Protein 6.1 L Albumin 2.6 L Vitamin B12 TSH Free T4 0.75 L CSF VDRL Lymph Enumerat CD4/CD8 Absolute CD3 Count % CD4 Cells Absolute CD4 Count % CD8 Cells Absolute CD19 Count T.pallidum Ab (FTA-ABS) HIV-1 RNA PCR copies/ml HIV-1 RNA (PCR) log Miscellaneous Test 09/18/18 09/19/18 09/19/18 12:46 04:57 04:57 WBC 2.1 L RBC Hgb 11.4 L Hct 34.2 L Plt Count Seg Neuts % (Manual) Lymphocytes % (Manual) Monocytes % (Manual) Eosinophils % (Manual) Basophils % (Manual) Nucleated RBC % Seg Neutrophils # Man Abs Lymphs (Manual) Lymphocytes # (Manual) PT INR APTT Heparin Anti-Xa Level POC ABG pH POC ABG pCO2 POC ABG pO2 Sodium Potassium Chloride Carbon Dioxide 19 L BUN 6 L Creatinine Glucose POC Glucose Lactic Acid Calcium 7.9 L Phosphorus AST ALT Total Creatine Kinase Total Protein Albumin Vitamin B12 TSH 5.190 H Free T4 CSF VDRL Lymph Enumerat CD4/CD8 Absolute CD3 Count % CD4 Cells Absolute CD4 Count % CD8 Cells Absolute CD19 Count T.pallidum Ab (FTA-ABS) HIV-1 RNA PCR copies/ml HIV-1 RNA (PCR) log Miscellaneous Test 09/19/18 09/19/18 09/20/18 15:00 15:00 05:33 WBC RBC Hgb Hct Plt Count Seg Neuts % (Manual) Lymphocytes % (Manual) Monocytes % (Manual) Eosinophils % (Manual) Basophils % (Manual) Nucleated RBC % Seg Neutrophils # Man Abs Lymphs (Manual) Lymphocytes # (Manual) PT INR APTT Heparin Anti-Xa Level POC ABG pH POC ABG pCO2 POC ABG pO2 Sodium 136 L Potassium Chloride Carbon Dioxide 19 L BUN 7 L Creatinine Glucose POC Glucose Lactic Acid Calcium Phosphorus AST ALT Total Creatine Kinase Total Protein Albumin Vitamin B12 TSH Free T4 CSF VDRL Reactive 1:4 H Lymph Enumerat CD4/CD8 Absolute CD3 Count % CD4 Cells Absolute CD4 Count % CD8 Cells Absolute CD19 Count T.pallidum Ab (FTA-ABS) HIV-1 RNA PCR copies/ml HIV-1 RNA (PCR) log Miscellaneous Test Flexitest 1 H 09/20/18 09/21/18 09/21/18 06:52 01:06 03:49 WBC 2.5 L RBC Hgb Hct Plt Count Seg Neuts % (Manual) Lymphocytes % (Manual) Monocytes % (Manual) Eosinophils % (Manual) Basophils % (Manual) Nucleated RBC % Seg Neutrophils # Man Abs Lymphs (Manual) Lymphocytes # (Manual) PT INR APTT Heparin Anti-Xa Level POC ABG pH 7.159 L POC ABG pCO2 32.9 L 70.0 H POC ABG pO2 62 L 254 H Sodium Potassium Chloride Carbon Dioxide BUN Creatinine Glucose POC Glucose Lactic Acid Calcium Phosphorus AST ALT Total Creatine Kinase Total Protein Albumin Vitamin B12 TSH Free T4 CSF VDRL Lymph Enumerat CD4/CD8 Absolute CD3 Count % CD4 Cells Absolute CD4 Count % CD8 Cells Absolute CD19 Count T.pallidum Ab (FTA-ABS) HIV-1 RNA PCR copies/ml HIV-1 RNA (PCR) log Miscellaneous Test 09/21/18 09/21/18 09/21/18 04:15 04:15 04:25 WBC 3.1 L RBC Hgb 11.6 L Hct Plt Count Seg Neuts % (Manual) Lymphocytes % (Manual) Monocytes % (Manual) 12.0 H Eosinophils % (Manual) Basophils % (Manual) Nucleated RBC % Seg Neutrophils # Man 1.6 L Abs Lymphs (Manual) Lymphocytes # (Manual) 0.5 L PT INR APTT Heparin Anti-Xa Level POC ABG pH POC ABG pCO2 POC ABG pO2 Sodium Potassium 6.1 H* D Chloride Carbon Dioxide 19 L BUN Creatinine Glucose 108 H POC Glucose Lactic Acid Calcium Phosphorus AST ALT Total Creatine Kinase 685 H Total Protein Albumin Vitamin B12 TSH Free T4 CSF VDRL Lymph Enumerat CD4/CD8 Absolute CD3 Count % CD4 Cells Absolute CD4 Count % CD8 Cells Absolute CD19 Count T.pallidum Ab (FTA-ABS) HIV-1 RNA PCR copies/ml HIV-1 RNA (PCR) log Miscellaneous Test 09/21/18 09/21/18 09/21/18 09:59 10:07 11:00 WBC RBC Hgb 11.7 L Hct Plt Count Seg Neuts % (Manual) Lymphocytes % (Manual) Monocytes % (Manual) Eosinophils % (Manual) Basophils % (Manual) Nucleated RBC % Seg Neutrophils # Man Abs Lymphs (Manual) Lymphocytes # (Manual) PT INR APTT Heparin Anti-Xa Level POC ABG pH 7.301 L POC ABG pCO2 POC ABG pO2 109 H Sodium Potassium 6.5 H* Chloride Carbon Dioxide 18 L BUN Creatinine 2.1 H D Glucose POC Glucose Lactic Acid Calcium 8.1 L Phosphorus AST 94 H ALT Total Creatine Kinase Total Protein Albumin 2.8 L Vitamin B12 TSH Free T4 CSF VDRL Lymph Enumerat CD4/CD8 Absolute CD3 Count % CD4 Cells Absolute CD4 Count % CD8 Cells Absolute CD19 Count T.pallidum Ab (FTA-ABS) HIV-1 RNA PCR copies/ml HIV-1 RNA (PCR) log Miscellaneous Test 09/21/18 09/21/18 09/21/18 15:00 21:54 21:54 WBC RBC Hgb Hct Plt Count Seg Neuts % (Manual) Lymphocytes % (Manual) Monocytes % (Manual) Eosinophils % (Manual) Basophils % (Manual) Nucleated RBC % Seg Neutrophils # Man Abs Lymphs (Manual) Lymphocytes # (Manual) PT 19.9 H INR 1.65 H APTT 40.9 H Heparin Anti-Xa Level 0.98 H POC ABG pH POC ABG pCO2 POC ABG pO2 Sodium Potassium 5.2 H Chloride Carbon Dioxide BUN Creatinine Glucose POC Glucose Lactic Acid Calcium Phosphorus AST ALT Total Creatine Kinase Total Protein Albumin Vitamin B12 TSH Free T4 CSF VDRL Lymph Enumerat CD4/CD8 Absolute CD3 Count % CD4 Cells Absolute CD4 Count % CD8 Cells Absolute CD19 Count T.pallidum Ab (FTA-ABS) HIV-1 RNA PCR copies/ml HIV-1 RNA (PCR) log Miscellaneous Test 09/21/18 09/22/18 09/22/18 22:57 03:01 05:27 WBC RBC Hgb Hct Plt Count Seg Neuts % (Manual) Lymphocytes % (Manual) Monocytes % (Manual) Eosinophils % (Manual) Basophils % (Manual) Nucleated RBC % Seg Neutrophils # Man Abs Lymphs (Manual) Lymphocytes # (Manual) PT INR APTT Heparin Anti-Xa Level POC ABG pH POC ABG pCO2 32.7 L POC ABG pO2 Sodium Potassium Chloride Carbon Dioxide BUN Creatinine Glucose POC Glucose 124 H 128 H Lactic Acid Calcium Phosphorus AST ALT Total Creatine Kinase Total Protein Albumin Vitamin B12 TSH Free T4 CSF VDRL Lymph Enumerat CD4/CD8 Absolute CD3 Count % CD4 Cells Absolute CD4 Count % CD8 Cells Absolute CD19 Count T.pallidum Ab (FTA-ABS) HIV-1 RNA PCR copies/ml HIV-1 RNA (PCR) log Miscellaneous Test 09/22/18 09/22/18 09/22/18 07:00 07:00 11:32 WBC 1.8 L* RBC 3.59 L Hgb 10.1 L Hct 30.8 L Plt Count 126 L Seg Neuts % (Manual) Lymphocytes % (Manual) Monocytes % (Manual) Eosinophils % (Manual) Basophils % (Manual) Nucleated RBC % Seg Neutrophils # Man Abs Lymphs (Manual) Lymphocytes # (Manual) PT INR APTT Heparin Anti-Xa Level POC ABG pH POC ABG pCO2 POC ABG pO2 Sodium Potassium Chloride Carbon Dioxide BUN 27 H Creatinine 2.0 H Glucose 128 H POC Glucose 123 H Lactic Acid Calcium 6.9 L Phosphorus AST ALT Total Creatine Kinase Total Protein Albumin Vitamin B12 TSH Free T4 CSF VDRL Lymph Enumerat CD4/CD8 Absolute CD3 Count % CD4 Cells Absolute CD4 Count % CD8 Cells Absolute CD19 Count T.pallidum Ab (FTA-ABS) HIV-1 RNA PCR copies/ml HIV-1 RNA (PCR) log Miscellaneous Test 09/22/18 09/22/18 09/22/18 15:52 18:18 23:52 WBC RBC Hgb Hct Plt Count Seg Neuts % (Manual) Lymphocytes % (Manual) Monocytes % (Manual) Eosinophils % (Manual) Basophils % (Manual) Nucleated RBC % Seg Neutrophils # Man Abs Lymphs (Manual) Lymphocytes # (Manual) PT INR APTT Heparin Anti-Xa Level POC ABG pH POC ABG pCO2 48.7 H POC ABG pO2 Sodium Potassium Chloride Carbon Dioxide BUN Creatinine Glucose POC Glucose 110 H 124 H Lactic Acid Calcium Phosphorus AST ALT Total Creatine Kinase Total Protein Albumin Vitamin B12 TSH Free T4 CSF VDRL Lymph Enumerat CD4/CD8 Absolute CD3 Count % CD4 Cells Absolute CD4 Count % CD8 Cells Absolute CD19 Count T.pallidum Ab (FTA-ABS) HIV-1 RNA PCR copies/ml HIV-1 RNA (PCR) log Miscellaneous Test 09/23/18 09/23/18 09/23/18 04:10 05:55 05:55 WBC RBC Hgb 10.0 L Hct 30.3 L Plt Count 117 L Seg Neuts % (Manual) Lymphocytes % (Manual) Monocytes % (Manual) Eosinophils % (Manual) Basophils % (Manual) Nucleated RBC % Seg Neutrophils # Man Abs Lymphs (Manual) Lymphocytes # (Manual) PT INR APTT Heparin Anti-Xa Level 0.26 L POC ABG pH POC ABG pCO2 POC ABG pO2 144 H Sodium Potassium Chloride Carbon Dioxide BUN Creatinine Glucose POC Glucose Lactic Acid Calcium Phosphorus AST ALT Total Creatine Kinase Total Protein Albumin Vitamin B12 TSH Free T4 CSF VDRL Lymph Enumerat CD4/CD8 Absolute CD3 Count % CD4 Cells Absolute CD4 Count % CD8 Cells Absolute CD19 Count T.pallidum Ab (FTA-ABS) HIV-1 RNA PCR copies/ml HIV-1 RNA (PCR) log Miscellaneous Test 09/23/18 09/23/18 09/23/18 08:10 08:10 23:57 WBC 1.3 L* RBC 3.53 L Hgb 9.9 L Hct 30.0 L Plt Count 119 L Seg Neuts % (Manual) Lymphocytes % (Manual) Monocytes % (Manual) Eosinophils % (Manual) Basophils % (Manual) Nucleated RBC % Seg Neutrophils # Man Abs Lymphs (Manual) Lymphocytes # (Manual) PT INR APTT Heparin Anti-Xa Level POC ABG pH POC ABG pCO2 POC ABG pO2 Sodium Potassium Chloride Carbon Dioxide BUN Creatinine Glucose 122 H POC Glucose 115 H Lactic Acid Calcium 6.9 L Phosphorus AST ALT Total Creatine Kinase Total Protein Albumin Vitamin B12 TSH Free T4 CSF VDRL Lymph Enumerat CD4/CD8 Absolute CD3 Count % CD4 Cells Absolute CD4 Count % CD8 Cells Absolute CD19 Count T.pallidum Ab (FTA-ABS) HIV-1 RNA PCR copies/ml HIV-1 RNA (PCR) log Miscellaneous Test 09/24/18 09/24/18 09/24/18 12:04 14:42 18:10 WBC RBC Hgb Hct Plt Count Seg Neuts % (Manual) Lymphocytes % (Manual) Monocytes % (Manual) Eosinophils % (Manual) Basophils % (Manual) Nucleated RBC % Seg Neutrophils # Man Abs Lymphs (Manual) Lymphocytes # (Manual) PT INR APTT Heparin Anti-Xa Level 0.76 H POC ABG pH POC ABG pCO2 POC ABG pO2 Sodium Potassium Chloride Carbon Dioxide BUN Creatinine Glucose POC Glucose 111 H 138 H Lactic Acid Calcium Phosphorus AST ALT Total Creatine Kinase Total Protein Albumin Vitamin B12 TSH Free T4 CSF VDRL Lymph Enumerat CD4/CD8 Absolute CD3 Count % CD4 Cells Absolute CD4 Count % CD8 Cells Absolute CD19 Count T.pallidum Ab (FTA-ABS) HIV-1 RNA PCR copies/ml HIV-1 RNA (PCR) log Miscellaneous Test 09/25/18 09/25/18 09/25/18 03:45 04:24 14:20 WBC RBC Hgb 9.7 L Hct 29.4 L Plt Count 104 L Seg Neuts % (Manual) Lymphocytes % (Manual) Monocytes % (Manual) Eosinophils % (Manual) Basophils % (Manual) Nucleated RBC % Seg Neutrophils # Man Abs Lymphs (Manual) Lymphocytes # (Manual) PT INR APTT Heparin Anti-Xa Level POC ABG pH 7.460 H POC ABG pCO2 32.9 L POC ABG pO2 Sodium Potassium 3.5 L Chloride 110.3 H Carbon Dioxide BUN Creatinine Glucose 105 H POC Glucose Lactic Acid Calcium 6.7 L Phosphorus AST 633 H ALT 481 H Total Creatine Kinase Total Protein 4.8 L D Albumin 1.9 L Vitamin B12 TSH Free T4 CSF VDRL Lymph Enumerat CD4/CD8 Absolute CD3 Count % CD4 Cells Absolute CD4 Count % CD8 Cells Absolute CD19 Count T.pallidum Ab (FTA-ABS) HIV-1 RNA PCR copies/ml HIV-1 RNA (PCR) log Miscellaneous Test 09/26/18 09/26/18 09/26/18 06:15 06:15 10:43 WBC 1.2 L* RBC 3.32 L Hgb 9.2 L Hct 28.6 L Plt Count 97 L Seg Neuts % (Manual) 24.0 L Lymphocytes % (Manual) 43.0 H Monocytes % (Manual) 19.0 H Eosinophils % (Manual) 8.0 H Basophils % (Manual) 2.0 H Nucleated RBC % 3.0 H Seg Neutrophils # Man 0.0 L Abs Lymphs (Manual) Lymphocytes # (Manual) 0.0 L PT INR APTT Heparin Anti-Xa Level POC ABG pH 7.459 H POC ABG pCO2 POC ABG pO2 141 H Sodium Potassium Chloride 112.8 H Carbon Dioxide BUN Creatinine Glucose 110 H POC Glucose Lactic Acid Calcium 7.0 L Phosphorus 0.90 L* AST 362 H ALT 360 H Total Creatine Kinase Total Protein 4.9 L Albumin 1.5 L Vitamin B12 TSH Free T4 CSF VDRL Lymph Enumerat CD4/CD8 Absolute CD3 Count % CD4 Cells Absolute CD4 Count % CD8 Cells Absolute CD19 Count T.pallidum Ab (FTA-ABS) HIV-1 RNA PCR copies/ml HIV-1 RNA (PCR) log Miscellaneous Test 09/26/18 09/27/18 13:56 04:11 WBC RBC Hgb 9.1 L Hct 29.1 L Plt Count 96 L Seg Neuts % (Manual) Lymphocytes % (Manual) Monocytes % (Manual) Eosinophils % (Manual) Basophils % (Manual) Nucleated RBC % Seg Neutrophils # Man Abs Lymphs (Manual) Lymphocytes # (Manual) PT INR APTT Heparin Anti-Xa Level POC ABG pH POC ABG pCO2 POC ABG pO2 Sodium Potassium Chloride Carbon Dioxide BUN Creatinine Glucose POC Glucose 135 H Lactic Acid Calcium Phosphorus AST ALT Total Creatine Kinase Total Protein Albumin Vitamin B12 TSH Free T4 CSF VDRL Lymph Enumerat CD4/CD8 Absolute CD3 Count % CD4 Cells Absolute CD4 Count % CD8 Cells Absolute CD19 Count T.pallidum Ab (FTA-ABS) HIV-1 RNA PCR copies/ml HIV-1 RNA (PCR) log Miscellaneous Test Chest x-ray: image reviewed (ETT in good position but migrating upwards) Allied health notes reviewed: nursing
[2018-09-27] MEDS: TRANSDERM-SCOP TD SCH (18:35)
[2018-09-27] MEDS: REGLAN IV SCH (21:52)
[2018-09-28] MEDS: CYTOVENE 500 MG in NACL 0.9% 250ML 250 ML IV SCH ×2 (00:50→13:51)
[2018-09-28] MEDS: PROVENTIL IH SCH ×4 (02:08→20:31)
--- NOTE | 2018-09-28 02:30 | XRay Report ---
FINAL REPORT EXAM: XR CHEST 1V AP HISTORY: follow up respiratory failure COMPARISON: September 27, 2018. FINDINGS: Frontal view(s) of the chest obtained. Heart normal in size. Lines and tubes unchanged. Stable nodula r opacity right upper lung concerning for pneumonia. No pleural effusion or pneumothorax. No change f rom prior study. IMPRESSION: Stable nodular opacity right upper lung concerning for pneumonia. Lines and tubes grossly unchanged.
[2018-09-28] MEDS: HEPARIN/ 0.45% NACL-25,000 UNIT/500 ML 25,000 UNIT/500 ML BAG IV SCH ×2 (02:41→23:15)
[2018-09-28] MEDS: LOPRESSOR IV SCH ×4 (02:43→21:32)
[2018-09-28] MEDS: SYNTHROID PO SCH (05:16)
[2018-09-28] MEDS: FLAGYL PO SCH ×3 (05:16→21:53)
[2018-09-28] MEDS: ROBINUL PO SCH ×3 (05:16→21:54)
--- NOTE | 2018-09-28 07:10 | Progress Note ---
Assessment and Plan - Patient Problems (1) Acute kidney failure with tubular necrosis Current Visit: Yes Status: Acute Plan to address problem: Overall renal function is stable. Need for close monitoring while receiving IV ganciclovir. Remains non oliguric. Continue to monitor. Renal function labs pending this am. Will place order (2) Acute respiratory failure with hypoxia Current Visit: Yes Status: Acute Plan to address problem: Remains intubated. Chest xray noted from last night, with development of patchy infiltrates in the right lung. Further management per pulm/ICU (3) Hypokalemia Current Visit: Yes Status: Acute Plan to address problem: Replete per protocol to maintain levels above 3.5. 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 Will continue to monitor. (5) Pancytopenia Current Visit: Yes Status: Acute Plan to address problem: In the setting of CMV viremia, HIV/AIDS. (6) HIV (human immunodeficiency virus infection) Current Visit: Yes Status: Chronic Plan to address problem: Management per ID recommendations. Subjective Date of service: 09/28/18 Principal diagnosis: Severe sepsis; Ac hypoxemic Resp failure; [place]. Pneumonia; Ac encephalopathy Interval history: remains intubated. Vancomycin DC'd per ID recs. No new renal function labs this am. Will place order. Patient remains non oliguric. Objective - Vital Signs Vital signs: Vital Signs - 12hr 09/27/18 09/27/18 09/27/18 19:18 19:26 19:30 Temperature Pulse Rate 72 105 H Pulse Rate [ From Monitor] Pulse Rate [ 77 81 Throughout] Respiratory 17 16 Rate Respiratory 17 17 Rate [ Throughout] Blood Pressure 131/71 134/71 O2 Sat by Pulse 100 99 Oximetry 09/27/18 09/27/18 09/27/18 19:48 20:00 20:30 Temperature 98.8 F Pulse Rate 97 H 91 H Pulse Rate [ 89 From Monitor] Pulse Rate [ Throughout] Respiratory 13 21 Rate Respiratory Rate [ Throughout] Blood Pressure 137/70 117/60 O2 Sat by Pulse 100 99 Oximetry 09/27/18 09/27/18 09/27/18 20:36 21:00 21:30 Temperature Pulse Rate 90 88 75 Pulse Rate [ From Monitor] Pulse Rate [ Throughout] Respiratory 20 21 Rate Respiratory Rate [ Throughout] Blood Pressure 117/60 109/61 111/53 O2 Sat by Pulse 99 99 Oximetry 09/27/18 09/27/18 09/27/18 22:00 22:12 22:17 Temperature Pulse Rate 90 88 91 H Pulse Rate [ From Monitor] Pulse Rate [ Throughout] Respiratory 13 14 Rate Respiratory Rate [ Throughout] Blood Pressure 103/61 103/61 103/61 O2 Sat by Pulse 99 99 99 Oximetry 09/27/18 09/27/18 09/27/18 22:30 23:00 23:23 Temperature Pulse Rate 91 H 88 92 H Pulse Rate [ From Monitor] Pulse Rate [ Throughout] Respiratory 22 13 Rate Respiratory Rate [ Throughout] Blood Pressure 110/53 125/64 125/64 O2 Sat by Pulse 100 99 100 Oximetry 09/27/18 09/27/18 09/28/18 23:30 23:41 00:00 Temperature 99.6 F Pulse Rate 97 H 93 H Pulse Rate [ 87 From Monitor] Pulse Rate [ Throughout] Respiratory 12 25 H Rate Respiratory Rate [ Throughout] Blood Pressure 121/64 110/55 O2 Sat by Pulse 100 99 Oximetry 09/28/18 09/28/18 09/28/18 00:30 01:00 01:30 Temperature Pulse Rate 86 85 89 Pulse Rate [ From Monitor] Pulse Rate [ Throughout] Respiratory 13 11 L 24 Rate Respiratory Rate [ Throughout] Blood Pressure 112/67 129/64 108/59 O2 Sat by Pulse 99 99 99 Oximetry 09/28/18 09/28/18 09/28/18 02:00 02:11 02:27 Temperature Pulse Rate 94 H Pulse Rate [ From Monitor] Pulse Rate [ 73 83 Throughout] Respiratory 13 Rate Respiratory 18 18 Rate [ Throughout] Blood Pressure 104/65 O2 Sat by Pulse 99 Oximetry 09/28/18 09/28/18 09/28/18 02:30 02:43 03:00 Temperature Pulse Rate 71 74 90 Pulse Rate [ From Monitor] Pulse Rate [ Throughout] Respiratory 18 16 Rate Respiratory Rate [ Throughout] Blood Pressure 128/72 128/72 130/75 O2 Sat by Pulse 97 98 Oximetry 09/28/18 09/28/18 09/28/18 03:30 03:44 03:58 Temperature 99.6 F Pulse Rate 79 75 Pulse Rate [ From Monitor] Pulse Rate [ Throughout] Respiratory 19 Rate Respiratory Rate [ Throughout] Blood Pressure 128/64 128/64 O2 Sat by Pulse 97 99 Oximetry 09/28/18 09/28/18 09/28/18 04:00 04:30 05:00 Temperature Pulse Rate 89 90 92 H Pulse Rate [ 82 From Monitor] Pulse Rate [ Throughout] Respiratory 13 25 H 24 Rate Respiratory Rate [ Throughout] Blood Pressure 110/71 116/66 103/58 O2 Sat by Pulse 100 99 100 Oximetry - General Appearance General appearance: appears stated age, intubated, frail EENT: ATNC, PERRL Neck: no JVD, no thyromegaly Respiratory: Present: Clear to Ascultation Cardiology: regular, S1S2 Gastrointestinal: normal, normoactive bowel sounds Integumentary: no rash, warm and dry Neurologic: other (lethargic) Musculoskeletal: other (mild non pitting edema in BL LE) - Lab 09/27/18 04:11 09/26/18 06:15 Most recent lab results Calcium 7.0 mg/dL (8.4-10.2) L 09/26/18 06:15 Phosphorus 3.10 mg/dL (2.5-4.5) D 09/27/18 04:11 Magnesium 1.80 mg/dL (1.7-2.3) 09/26/18 06:15 - Imaging Chest x-ray: report reviewed - Allied health notes Allied health notes reviewed: nursing Medications & Allergies - Medications Allergies/Adverse Reactions: Allergies No Known Allergies Allergy (Unverified 09/11/18 17:50) Active Medications: Generic Name Dose Route Start Last Admin Trade Name Freq PRN Reason Stop Dose Admin Acetaminophen 650 mg 09/11/18 19:30 09/23/18 08:41 Tylenol PO 650 mg Q4H PRN Administration Pain MILD(1-3)/Fever >100.5/RIVERA Acetaminophen 650 mg 09/21/18 07:39 Tylenol MS Q4H PRN Fever >101 Albuterol 2.5 mg 09/11/18 19:30 09/16/18 06:09 Proventil IH 2.5 mg Q4HRT PRN Administration Shortness Of Breath Albuterol 2.5 mg 09/20/18 20:00 09/28/18 02:08 Proventil IH 2.5 mg Q6HRT GIA Administration Amiodarone HCl 200 mg 09/27/18 15:00 09/27/18 21:51 Cordarone PO 200 mg BID GIA Administration Lipase/Protease/Amylase 1 each 09/26/18 14:[address] 10,500 Unit FEEDTUBE PRN PRN For Clogged Feeding Tube Atovaquone 750 mg 09/21/18 10:00 09/27/18 21:52 Mepron PO 750 mg BID GIA Administration Azithromycin 1,200 mg 09/25/18 10:00 09/25/18 10:00 Zithromax PO 1,200 mg Walters GIA Administration Famotidine 20 mg 09/24/18 10:00 09/27/18 21:51 Pepcid PO 20 mg BID GIA Administration Glycopyrrolate 2 mg 09/23/18 15:00 09/28/18 05:16 Robinul PO 2 mg Q8HR GIA Administration Hydrophilic Ointment 1 applic 09/21/18 01:46 09/22/18 03:46 Vaseline Lip Therapy TP 1 applic Q2HR PRN Administration Dry Lips Fluconazole 200 mls @ 100 mls/hr 09/13/18 14:00 09/27/18 09:10 Diflucan IV 100 mls/hr Q24HR GIA Administration Protocol Heparin Sodium/Sodium Chloride 25,000 unit in 500 mls @ 30 mls/hr 09/21/18 11:00 09/28/18 02:41 Heparin/ 0.45% Nacl-25,000 Unit/500 Ml IV 1,300 units/hr TITR GIA 26 mls/hr Administration Protocol 1,500 UNITS/HR Norepinephrine 4 mg in 250 mls @ 7.5 mls/hr 09/22/18 16:00 09/23/18 15:25 Levophed Drip 4 Mg/Ns 250 Ml IV Infused TITR GIA Titration Protocol 2 MCG/MIN Ganciclovir Sodium 500 mg/ 250 mls @ 100 mls/hr 09/23/18 13:00 09/28/18 00:50 Sodium Chloride IV 100 mls/hr Q12H GIA Administration Ceftriaxone Sodium 2 gm in 100 mls @ 200 mls/hr 09/23/18 13:00 09/27/18 21:52 Rocephin/Ns 2 Gm/100 Ml IV 200 mls/hr Q12HR GIA Administration Protocol Levothyroxine Sodium 25 mcg 09/19/18 06:00 09/28/18 05:16 Synthroid PO 25 mcg DAILY@0600 GIA Administration Metoclopramide HCl 5 mg 09/27/18 22:00 09/27/18 21:52 Reglan IV 5 mg BID GIA Administration Metoprolol Tartrate 5 mg 09/21/18 03:00 09/28/18 02:43 Lopressor IV 5 mg Q6H GIA Administration Metronidazole 500 mg 09/26/18 14:00 09/28/18 05:16 Flagyl PO 500 mg Q8HR GIA Administration Protocol Multi-Ingred Cream/Lotion/Oil/Oint 1 applic 09/21/18 01:46 Artificial Tears Ophth Oint OU Q4HR PRN Dry Eye(s) Ondansetron HCl 4 mg 09/11/18 19:30 Zofran IV Q8H PRN Nausea And Vomiting Scopolamine 1 each 09/18/18 18:00 09/27/18 18:35 Transderm-Scop TD 1 each Q3D GIA Administration Simple Syrup 15 ml 09/26/18 14:18 Simple Syrup FEEDTUBE PRN PRN Hypoglycemia Simple Syrup 30 ml 09/26/18 14:18 Simple Syrup FEEDTUBE PRN PRN Hypoglycemia Sodium Bicarbonate 325 mg 09/26/18 14:18 Sodium Bicarbonate FEEDTUBE PRN PRN For Clogged Feeding Tube Sodium Chloride 10 ml 09/11/18 22:00 09/27/18 21:52 Sodium Chloride Flush Syringe 10 Ml IV 10 ml BID GIA Administration Sodium Chloride 10 ml 09/11/18 19:30 Sodium Chloride Flush Syringe 10 Ml IV PRN PRN LINE FLUSH
[2018-09-28 08:25] LABS: BUN/Creatinine Ratio 15; Blood Urea Nitrogen 17 mg/dL (9-20); Calcium 7.4 mg/dL (8.4-10.2); Hemolysis Index 5
[2018-09-28] MEDS: SODIUM CHLORIDE FLUSH SYRINGE 10 ML IV SCH ×2 (09:01→21:53)
[2018-09-28] MEDS: CORDARONE PO SCH ×2 (09:01→22:19)
[2018-09-28] MEDS: MEPRON PO SCH ×2 (09:01→21:54)
[2018-09-28] MEDS: PEPCID PO SCH ×2 (09:02→22:19)
[2018-09-28] MEDS: ROCEPHIN/NS 2 GM/100 ML 2 GM/100 ML BAG IV SCH ×2 (09:02→21:53)
[2018-09-28] MEDS: DIFLUCAN 200 ML IV SCH (09:03)
[2018-09-28] MEDS: REGLAN IV SCH ×2 (09:03→21:53)
--- NOTE | 2018-09-28 11:10 | Progress Note ---
Assessment and Plan Cultures: 09/11/2018 blood culture: no growth 09/13/2018 serum cryptococcus ag neg 09/14/2018 CSF cryptococcus ag neg 09/14/2018 stool Nona 09/15/2018 stool +Giardia ag 09/19/2018 CSF cryptococcus ag neg 09/21/2018 tracheal aspirate culture: Nona albicans 09/23/2018 blood culture: No growth 09/23/2018 Fungal blood culture: no growth thus far A/P: 33 y/o male with no PMH; admitted on 09/11/2018 due to 4 days-AMS/behavioral changes, nausea, voimiting, diarrhea, weight loss and cough: 1) Septic shock: etiology unclear. Cultures negative thus far, remains on ceftriaxone for now. Once, extubated, hope to de-escalate back to Penicillin G. 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 Monitor for worsening leucopenia. Given issues with renal function, will hold off on addition of foscarnet. F/U CMV DNA PCR, would expect no significant change in the log value in the first week. Transaminitis could be from CMV v/s shock liver, improving. 3) Acute respiratory failure: likely multifactorial from multifocal pneumonia +/- volume overload. PJP DFA negative. Continue Atovaquone for prophylaxis. 4) Acute encephalopathy: possibly from neurosyphilis v/s CMV encephalitis v/s unknown etiology. Of note, MRI did not show ventriculitis. Blood CMV DNA PCR = [id number],058,[id number]. CSF YAYO virus DNA PCR neg. Toxo IgG negative. 5) Neurosyphilis: CSF VDRL positive, was on Penicillin G, given decline in clinical condition, and to avoid double beta-lactam abx and increased seizure risk, continue high dose IV Ceftriaxone which does have activity against Treponema pallidum. 6) Diarrhea: likely due to Giardiasis as Giardia antigen positive in stool, in immunocompromised patient, on flagyl. Continues to be present, so continue Flagyl. 7) Oral candidiasis: better, on fluconazole. 8) A.fib with RVR, now back to sinus: cardiology following. On Amiodarone. 9) HIV/AIDS: newly diagnosed. Risk factor is MSM behavior. CD4=4. VL=50,700. HIV Genotype ordered. 10) Neutropenia/thrombocytopenia: possibly from HIV/CMV myelosuppression +/- sepsis. Can also get worse from ganciclovir. r/o disseminated MAC, thus far cultures negative. 11) MAL: ? polypharmacy (bactrim) improved. Nephrology following with creatinine stable and improved. Recs: - hope to de-escalate abx once off the ventilator - continue IV Ganciclovir to 5 mg/kg q12 hrs, will need to continue till CMV PCR is down to <200. - continue IV Ceftriaxone 2 gm q12 hrs - continue IV Flagyl for diarrhea from Giardiasis, complete 14-21 days - continue atovaquone and azithromycin prophylaxis - continue fluconazole D15, will plan for 21 days of therapy to also cover for esophagitis - f/u CMV DNA PCR - recheck CBC, BMP in AM Will follow. Please call with questions. Maurizio Lopez MD [facility] C: [phone] O: [phone] F: [phone] Subjective Date of service: 09/28/18 Principal diagnosis: Severe sepsis; Ac hypoxemic Resp failure; [place]. Pneumonia; Ac encephalopathy Interval history: No fever. Remains stable, on the vent with minimal settings. Discussed wtih RN, diarrhea has been stable. Plans to extubate today hopefully. Objective - Exam Narrative Exam: Physical Exam: Constitutional: intubated, on the event, can be awakened, obeying commands occasionally Head, Ears, Nose: Normocephalic, atraumatic. Eyes: Conjunctivae/corneas clear. No icterus. No ptosis. Neck: Supple, no meningeal signs Oral: intubated Cardiovascular: S1, S2 normal. Respiratory: Good air entry, clear to auscultation bilaterally GI: Soft, bowel sounds normal. No peritoneal signs, Rectal tube + with diarrhea Musculoskeletal: No pedal edema, no cyanosis. Skin: No rash or abscess Hem/Lymphatic: No palpable cervical or supraclavicular nodes. No lymphangitis Psych: no agitation Neurological: intubated, on the vent, exam limited - Constitutional Vitals: Vital Signs Temp Pulse Resp BP Pulse Ox 99.4 F 105 H 15 117/49 100 09/28/18 08:00 09/28/18 08:58 09/28/18 08:06 09/28/18 08:58 09/28/18 08:00 Temperature -Last 24 Hours Temperature 99.4 F Temperature 99.6 F Temperature 99.6 F Temperature 98.8 F Temperature 98.2 F Temperature 98.1 F - Labs CBC & Chem 7: 09/27/18 04:11 09/28/18 07:49 Labs: Abnormal lab results 09/28/18 09/28/18 Range/Units 07:49 10:43 POC ABG pH 7.300 L (7.35-7.45) POC ABG pCO2 53.9 H (35-45) Sodium 146 H (137-145) mmol/L Chloride 111.6 H (98-107) mmol/L Calcium 7.4 L (8.4-10.2) mg/dL - Imaging and cardiology Chest x-ray: report reviewed, image reviewed (no evidence of pneumonia.)
--- NOTE | 2018-09-28 11:50 | Progress Note ---
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) Elevated LFTs Neutropenia Thrombocytopenia (His mental status remains the rate limiting step to safe extubation for now) - advanced ETT to 26 cm NIKA - continue to hold all sedating medications - ETT day # 9; will continue daytime SBT's for now while following mental status - serum PO4 aggressively replaced to optimize respiratory muscle function - continue anti-infective's per ID recs - continue low dose reglan re: reported increased residuals - continue supplemental oxygen to keep sats > 90% - continue bronchodilators with pulmonary Continue empiric and targeted anti-infective's per ID recs antibiotics per ID - continue set rate at 12/min - continue daily SBT's - daily SAT's - continue Robinul 2 mg q8h for secretions - IV amiodarone stopped - cardiology evaluation ongoing - diarrhea improved - continue fluconazole for candidiasis - watch for drug-drug interactions - continue enteral nutrition as tolerated - when resumed target sedation for RASS 0 to -1 - PT/OT/ROM exercises as tolerated - mobility protocol for pressure ulcer prophylaxis - continue GI & VTE prophylaxis - continue other care per attending / other consultants ....... care plan discussed at length with next-of-kin at bedside ...... re-evaluate in am & prn The high probability of a clinically significant, sudden or life threatening deterioration of the [cardiac, respiratory and neurologic] system(s) required my full and direct attention, intervention and personal management. The aggregate critical care time was [35] minutes. This time is in addition to time spent per forming reported procedures but includes the following: [x] Data Review and interpretation [x] Patient assessment and monitoring of vital signs [x] Documentation [x] Medication orders and management Subjective Date of service: 09/28/18 Principal diagnosis: Severe sepsis; Ac hypoxemic Resp failure; [place]. Pneumonia; Ac encephalopathy Interval history: Patient is seen today for: Severe sepsis (present on admission with fever, tachycardia, hypotension and elevated lactate); Acute hypoxemic Respiratory failure; Bilateral pneumonia; Acute encephalopathy (Toxic / Metabolic); Atrial Fibrillation with RVR Seen and examined at bedside; 24hour events reviewed; nursing and respiratory care staff consulted; no adverse overnight events reported to me; resting peacefully in bed; AMS is persistent; tenuously tolerating PSV trials at times; no emesis or overt aspiration; no seizures Objective Vital Signs - 12hr 09/28/18 09/28/18 09/28/18 00:00 00:30 01:00 Temperature Pulse Rate 93 H 86 85 Pulse Rate [ 87 From Monitor] Pulse Rate [ Throughout] Respiratory 25 H 13 11 L Rate Respiratory Rate [ Throughout] Blood Pressure 110/55 112/67 129/64 O2 Sat by Pulse 99 99 99 Oximetry 09/28/18 09/28/18 09/28/18 01:30 02:00 02:11 Temperature Pulse Rate 89 94 H Pulse Rate [ From Monitor] Pulse Rate [ 73 Throughout] Respiratory 24 13 Rate Respiratory 18 Rate [ Throughout] Blood Pressure 108/59 104/65 O2 Sat by Pulse 99 99 Oximetry 09/28/18 09/28/18 09/28/18 02:27 02:30 02:43 Temperature Pulse Rate 71 74 Pulse Rate [ From Monitor] Pulse Rate [ 83 Throughout] Respiratory 18 Rate Respiratory 18 Rate [ Throughout] Blood Pressure 128/72 128/72 O2 Sat by Pulse 97 Oximetry 09/28/18 09/28/18 09/28/18 03:00 03:30 03:44 Temperature 99.6 F Pulse Rate 90 79 Pulse Rate [ From Monitor] Pulse Rate [ Throughout] Respiratory 16 19 Rate Respiratory Rate [ Throughout] Blood Pressure 130/75 128/64 O2 Sat by Pulse 98 97 Oximetry 09/28/18 09/28/18 09/28/18 03:58 04:00 04:30 Temperature Pulse Rate 75 89 90 Pulse Rate [ 82 From Monitor] Pulse Rate [ Throughout] Respiratory 13 25 H Rate Respiratory Rate [ Throughout] Blood Pressure 128/64 110/71 116/66 O2 Sat by Pulse 99 100 99 Oximetry 09/28/18 09/28/18 09/28/18 05:00 05:30 06:00 Temperature Pulse Rate 92 H 88 87 Pulse Rate [ From Monitor] Pulse Rate [ Throughout] Respiratory 24 14 15 Rate Respiratory Rate [ Throughout] Blood Pressure 103/58 123/67 130/63 O2 Sat by Pulse 100 100 96 Oximetry 09/28/18 09/28/18 09/28/18 06:30 07:00 07:30 Temperature Pulse Rate 102 H 90 81 Pulse Rate [ From Monitor] Pulse Rate [ Throughout] Respiratory 22 19 17 Rate Respiratory Rate [ Throughout] Blood Pressure 110/57 109/58 118/57 O2 Sat by Pulse 100 99 99 Oximetry 09/28/18 09/28/18 09/28/18 07:55 08:00 08:06 Temperature 99.4 F Pulse Rate 89 99 H Pulse Rate [ 99 H From Monitor] Pulse Rate [ 101 H 90 Throughout] Respiratory 20 13 Rate Respiratory 20 15 Rate [ Throughout] Blood Pressure 125/71 125/71 O2 Sat by Pulse 100 100 Oximetry 09/28/18 08:58 Temperature Pulse Rate 105 H Pulse Rate [ From Monitor] Pulse Rate [ Throughout] Respiratory Rate Respiratory Rate [ Throughout] Blood Pressure 117/49 O2 Sat by Pulse Oximetry Constitutional: lethargic, agitated, appears uncomfortable, other (orally intubated ETT at 23cm) Eyes: non-icteric ENT: oropharynx moist, other (ETT 25 cm NIKA) Neck: supple, no lymphadenopathy, other (no thyromegaly) Effort: mildly labored Ascultation: Bilateral: rales, rhonchi Percussion: Bilateral: not dull Cardiovascular: regular rate and rhythm, other (S1,S2, no murmurs, gallps or rubs) Gastrointestinal: normoactive bowel sounds, soft, non-tender, non-distended Integumentary: rash Extremities: no cyanosis, pulses normal, no ischemia or petechiae, edema Neurologic: pupils equal and round, motor strength normal and (weak though) Psychiatric: other (unable to assess) CBC and BMP: 10/01/18 04:55 10/01/18 04:55 ABG, PT/INR, D-dimer: ABG POC ABG pH 7.300 (7.35-7.45) L 09/28/18 10:43 POC ABG pCO2 53.9 (35-45) H 09/28/18 10:43 POC ABG pO2 97 (80-105) 09/28/18 10:43 POC ABG HCO3 26.5 09/28/18 10:43 POC ABG Total CO2 28 09/28/18 10:43 POC ABG O2 Sat 97 09/28/18 10:43 PT/INR, D-dimer PT 19.9 Sec. (12.2-14.9) H 09/21/18 15:00 INR 1.65 (0.87-1.13) H 09/21/18 15:00 Abnormal lab findings: Abnormal Labs 09/11/18 09/11/18 09/11/18 18:00 18:00 18:00 WBC 1.9 L* RBC Hgb Hct Plt Count 130 L Seg Neuts % (Manual) Lymphocytes % (Manual) Monocytes % (Manual) 16.0 H Eosinophils % (Manual) Basophils % (Manual) Nucleated RBC % Seg Neutrophils # Man 0.9 L Abs Lymphs (Manual) Lymphocytes # (Manual) 0.5 L PT INR APTT Heparin Anti-Xa Level POC ABG pH POC ABG pCO2 POC ABG pO2 Sodium 131 L Potassium Chloride Carbon Dioxide 17 L BUN 21 H Creatinine Glucose 126 H POC Glucose Lactic Acid 2.60 H* Calcium 8.1 L Phosphorus AST 123 H ALT 115 H Total Creatine Kinase Total Protein Albumin 3.0 L Vitamin B12 TSH Free T4 CSF VDRL Lymph Enumerat CD4/CD8 Absolute CD3 Count % CD4 Cells Absolute CD4 Count % CD8 Cells Absolute CD19 Count T.pallidum Ab (FTA-ABS) HIV-1 RNA PCR copies/ml HIV-1 RNA (PCR) log Miscellaneous Test 09/11/18 09/13/18 09/13/18 19:01 04:28 07:31 WBC 2.0 L RBC Hgb Hct Plt Count 116 L Seg Neuts % (Manual) Lymphocytes % (Manual) Monocytes % (Manual) 8.0 H Eosinophils % (Manual) Basophils % (Manual) Nucleated RBC % Seg Neutrophils # Man 1.0 L Abs Lymphs (Manual) Lymphocytes # (Manual) 0.5 L PT INR APTT Heparin Anti-Xa Level POC ABG pH POC ABG pCO2 POC ABG pO2 Sodium Potassium Chloride 110.4 H Carbon Dioxide 19 L BUN Creatinine Glucose POC Glucose Lactic Acid 3.70 H* Calcium 7.9 L Phosphorus AST ALT Total Creatine Kinase Total Protein Albumin Vitamin B12 TSH Free T4 CSF VDRL Lymph Enumerat CD4/CD8 Absolute CD3 Count % CD4 Cells Absolute CD4 Count % CD8 Cells Absolute CD19 Count T.pallidum Ab (FTA-ABS) HIV-1 RNA PCR copies/ml HIV-1 RNA (PCR) log Miscellaneous Test 09/13/18 09/13/18 09/13/18 07:31 12:29 12:29 WBC RBC Hgb Hct Plt Count Seg Neuts % (Manual) Lymphocytes % (Manual) Monocytes % (Manual) Eosinophils % (Manual) Basophils % (Manual) Nucleated RBC % Seg Neutrophils # Man Abs Lymphs (Manual) 309 L Lymphocytes # (Manual) PT INR APTT Heparin Anti-Xa Level POC ABG pH POC ABG pCO2 POC ABG pO2 Sodium Potassium Chloride Carbon Dioxide BUN Creatinine Glucose POC Glucose Lactic Acid Calcium Phosphorus AST 70 H ALT 68 H Total Creatine Kinase Total Protein Albumin 2.5 L Vitamin B12 TSH Free T4 CSF VDRL Lymph Enumerat CD4/CD8 0.01 L Absolute CD3 Count 220 L % CD4 Cells 1 L Absolute CD4 Count 4 L % CD8 Cells 70 H Absolute CD19 Count 54 L T.pallidum Ab (FTA-ABS) HIV-1 RNA PCR copies/ml 99642 H HIV-1 RNA (PCR) log 4.71 H Miscellaneous Test 09/13/18 09/14/18 09/14/18 12:29 07:17 16:34 WBC RBC Hgb Hct Plt Count Seg Neuts % (Manual) Lymphocytes % (Manual) Monocytes % (Manual) Eosinophils % (Manual) Basophils % (Manual) Nucleated RBC % Seg Neutrophils # Man Abs Lymphs (Manual) Lymphocytes # (Manual) PT INR APTT Heparin Anti-Xa Level POC ABG pH POC ABG pCO2 POC ABG pO2 Sodium Potassium 3.4 L Chloride Carbon Dioxide 18 L BUN Creatinine Glucose 104 H POC Glucose Lactic Acid Calcium 7.6 L Phosphorus AST 49 H ALT Total Creatine Kinase Total Protein Albumin 2.5 L Vitamin B12 TSH Free T4 CSF VDRL Lymph Enumerat CD4/CD8 Absolute CD3 Count % CD4 Cells Absolute CD4 Count % CD8 Cells Absolute CD19 Count T.pallidum Ab (FTA-ABS) Reactive H HIV-1 RNA PCR copies/ml HIV-1 RNA (PCR) log Miscellaneous Test Flexitest 1 H 09/15/18 09/15/18 09/15/18 05:05 05:05 Unknown WBC 1.6 L* RBC Hgb 10.4 L Hct 31.1 L D Plt Count 113 L Seg Neuts % (Manual) Lymphocytes % (Manual) Monocytes % (Manual) Eosinophils % (Manual) Basophils % (Manual) Nucleated RBC % Seg Neutrophils # Man Abs Lymphs (Manual) Lymphocytes # (Manual) PT INR APTT Heparin Anti-Xa Level POC ABG pH POC ABG pCO2 POC ABG pO2 Sodium Potassium Chloride 107.9 H Carbon Dioxide 18 L BUN 6 L Creatinine Glucose POC Glucose Lactic Acid Calcium 7.4 L Phosphorus AST ALT Total Creatine Kinase Total Protein Albumin Vitamin B12 TSH Free T4 CSF VDRL Reactive 1:8 H Lymph Enumerat CD4/CD8 Absolute CD3 Count % CD4 Cells Absolute CD4 Count % CD8 Cells Absolute CD19 Count T.pallidum Ab (FTA-ABS) HIV-1 RNA PCR copies/ml HIV-1 RNA (PCR) log Miscellaneous Test 09/16/18 09/16/18 09/16/18 06:55 11:41 11:41 WBC 2.8 L RBC Hgb 10.9 L Hct 33.5 L Plt Count 135 L Seg Neuts % (Manual) Lymphocytes % (Manual) Monocytes % (Manual) Eosinophils % (Manual) Basophils % (Manual) Nucleated RBC % Seg Neutrophils # Man Abs Lymphs (Manual) Lymphocytes # (Manual) PT INR APTT Heparin Anti-Xa Level POC ABG pH POC ABG pCO2 POC ABG pO2 Sodium Potassium Chloride Carbon Dioxide BUN Creatinine Glucose POC Glucose Lactic Acid Calcium Phosphorus AST ALT Total Creatine Kinase Total Protein Albumin Vitamin B12 TSH 4.210 H Free T4 0.72 L CSF VDRL Lymph Enumerat CD4/CD8 Absolute CD3 Count % CD4 Cells Absolute CD4 Count % CD8 Cells Absolute CD19 Count T.pallidum Ab (FTA-ABS) HIV-1 RNA PCR copies/ml HIV-1 RNA (PCR) log Miscellaneous Test 09/16/18 09/16/18 09/17/18 11:41 15:43 05:13 WBC 2.0 L RBC Hgb 10.9 L Hct 32.7 L Plt Count Seg Neuts % (Manual) Lymphocytes % (Manual) Monocytes % (Manual) Eosinophils % (Manual) Basophils % (Manual) Nucleated RBC % Seg Neutrophils # Man Abs Lymphs (Manual) Lymphocytes # (Manual) PT INR APTT Heparin Anti-Xa Level POC ABG pH POC ABG pCO2 29.3 L POC ABG pO2 70 L Sodium Potassium Chloride Carbon Dioxide BUN Creatinine Glucose POC Glucose Lactic Acid Calcium Phosphorus AST ALT Total Creatine Kinase Total Protein Albumin Vitamin B12 934.5 H TSH Free T4 CSF VDRL Lymph Enumerat CD4/CD8 Absolute CD3 Count % CD4 Cells Absolute CD4 Count % CD8 Cells Absolute CD19 Count T.pallidum Ab (FTA-ABS) HIV-1 RNA PCR copies/ml HIV-1 RNA (PCR) log Miscellaneous Test 09/17/18 09/17/18 09/18/18 05:13 21:57 12:46 WBC RBC Hgb Hct Plt Count Seg Neuts % (Manual) Lymphocytes % (Manual) Monocytes % (Manual) Eosinophils % (Manual) Basophils % (Manual) Nucleated RBC % Seg Neutrophils # Man Abs Lymphs (Manual) Lymphocytes # (Manual) PT INR APTT Heparin Anti-Xa Level POC ABG pH POC ABG pCO2 POC ABG pO2 Sodium Potassium Chloride 107.2 H Carbon Dioxide 21 L BUN 3 L Creatinine 0.7 L Glucose POC Glucose 108 H Lactic Acid Calcium 7.9 L Phosphorus AST ALT Total Creatine Kinase Total Protein 6.1 L Albumin 2.6 L Vitamin B12 TSH Free T4 0.75 L CSF VDRL Lymph Enumerat CD4/CD8 Absolute CD3 Count % CD4 Cells Absolute CD4 Count % CD8 Cells Absolute CD19 Count T.pallidum Ab (FTA-ABS) HIV-1 RNA PCR copies/ml HIV-1 RNA (PCR) log Miscellaneous Test 09/18/18 09/19/18 09/19/18 12:46 04:57 04:57 WBC 2.1 L RBC Hgb 11.4 L Hct 34.2 L Plt Count Seg Neuts % (Manual) Lymphocytes % (Manual) Monocytes % (Manual) Eosinophils % (Manual) Basophils % (Manual) Nucleated RBC % Seg Neutrophils # Man Abs Lymphs (Manual) Lymphocytes # (Manual) PT INR APTT Heparin Anti-Xa Level POC ABG pH POC ABG pCO2 POC ABG pO2 Sodium Potassium Chloride Carbon Dioxide 19 L BUN 6 L Creatinine Glucose POC Glucose Lactic Acid Calcium 7.9 L Phosphorus AST ALT Total Creatine Kinase Total Protein Albumin Vitamin B12 TSH 5.190 H Free T4 CSF VDRL Lymph Enumerat CD4/CD8 Absolute CD3 Count % CD4 Cells Absolute CD4 Count % CD8 Cells Absolute CD19 Count T.pallidum Ab (FTA-ABS) HIV-1 RNA PCR copies/ml HIV-1 RNA (PCR) log Miscellaneous Test 09/19/18 09/19/18 09/20/18 15:00 15:00 05:33 WBC RBC Hgb Hct Plt Count Seg Neuts % (Manual) Lymphocytes % (Manual) Monocytes % (Manual) Eosinophils % (Manual) Basophils % (Manual) Nucleated RBC % Seg Neutrophils # Man Abs Lymphs (Manual) Lymphocytes # (Manual) PT INR APTT Heparin Anti-Xa Level POC ABG pH POC ABG pCO2 POC ABG pO2 Sodium 136 L Potassium Chloride Carbon Dioxide 19 L BUN 7 L Creatinine Glucose POC Glucose Lactic Acid Calcium Phosphorus AST ALT Total Creatine Kinase Total Protein Albumin Vitamin B12 TSH Free T4 CSF VDRL Reactive 1:4 H Lymph Enumerat CD4/CD8 Absolute CD3 Count % CD4 Cells Absolute CD4 Count % CD8 Cells Absolute CD19 Count T.pallidum Ab (FTA-ABS) HIV-1 RNA PCR copies/ml HIV-1 RNA (PCR) log Miscellaneous Test Flexitest 1 H 09/20/18 09/21/18 09/21/18 06:52 01:06 03:49 WBC 2.5 L RBC Hgb Hct Plt Count Seg Neuts % (Manual) Lymphocytes % (Manual) Monocytes % (Manual) Eosinophils % (Manual) Basophils % (Manual) Nucleated RBC % Seg Neutrophils # Man Abs Lymphs (Manual) Lymphocytes # (Manual) PT INR APTT Heparin Anti-Xa Level POC ABG pH 7.159 L POC ABG pCO2 32.9 L 70.0 H POC ABG pO2 62 L 254 H Sodium Potassium Chloride Carbon Dioxide BUN Creatinine Glucose POC Glucose Lactic Acid Calcium Phosphorus AST ALT Total Creatine Kinase Total Protein Albumin Vitamin B12 TSH Free T4 CSF VDRL Lymph Enumerat CD4/CD8 Absolute CD3 Count % CD4 Cells Absolute CD4 Count % CD8 Cells Absolute CD19 Count T.pallidum Ab (FTA-ABS) HIV-1 RNA PCR copies/ml HIV-1 RNA (PCR) log Miscellaneous Test 09/21/18 09/21/18 09/21/18 04:15 04:15 04:25 WBC 3.1 L RBC Hgb 11.6 L Hct Plt Count Seg Neuts % (Manual) Lymphocytes % (Manual) Monocytes % (Manual) 12.0 H Eosinophils % (Manual) Basophils % (Manual) Nucleated RBC % Seg Neutrophils # Man 1.6 L Abs Lymphs (Manual) Lymphocytes # (Manual) 0.5 L PT INR APTT Heparin Anti-Xa Level POC ABG pH POC ABG pCO2 POC ABG pO2 Sodium Potassium 6.1 H* D Chloride Carbon Dioxide 19 L BUN Creatinine Glucose 108 H POC Glucose Lactic Acid Calcium Phosphorus AST ALT Total Creatine Kinase 685 H Total Protein Albumin Vitamin B12 TSH Free T4 CSF VDRL Lymph Enumerat CD4/CD8 Absolute CD3 Count % CD4 Cells Absolute CD4 Count % CD8 Cells Absolute CD19 Count T.pallidum Ab (FTA-ABS) HIV-1 RNA PCR copies/ml HIV-1 RNA (PCR) log Miscellaneous Test 09/21/18 09/21/18 09/21/18 09:59 10:07 11:00 WBC RBC Hgb 11.7 L Hct Plt Count Seg Neuts % (Manual) Lymphocytes % (Manual) Monocytes % (Manual) Eosinophils % (Manual) Basophils % (Manual) Nucleated RBC % Seg Neutrophils # Man Abs Lymphs (Manual) Lymphocytes # (Manual) PT INR APTT Heparin Anti-Xa Level POC ABG pH 7.301 L POC ABG pCO2 POC ABG pO2 109 H Sodium Potassium 6.5 H* Chloride Carbon Dioxide 18 L BUN Creatinine 2.1 H D Glucose POC Glucose Lactic Acid Calcium 8.1 L Phosphorus AST 94 H ALT Total Creatine Kinase Total Protein Albumin 2.8 L Vitamin B12 TSH Free T4 CSF VDRL Lymph Enumerat CD4/CD8 Absolute CD3 Count % CD4 Cells Absolute CD4 Count % CD8 Cells Absolute CD19 Count T.pallidum Ab (FTA-ABS) HIV-1 RNA PCR copies/ml HIV-1 RNA (PCR) log Miscellaneous Test 09/21/18 09/21/18 09/21/18 15:00 21:54 21:54 WBC RBC Hgb Hct Plt Count Seg Neuts % (Manual) Lymphocytes % (Manual) Monocytes % (Manual) Eosinophils % (Manual) Basophils % (Manual) Nucleated RBC % Seg Neutrophils # Man Abs Lymphs (Manual) Lymphocytes # (Manual) PT 19.9 H INR 1.65 H APTT 40.9 H Heparin Anti-Xa Level 0.98 H POC ABG pH POC ABG pCO2 POC ABG pO2 Sodium Potassium 5.2 H Chloride Carbon Dioxide BUN Creatinine Glucose POC Glucose Lactic Acid Calcium Phosphorus AST ALT Total Creatine Kinase Total Protein Albumin Vitamin B12 TSH Free T4 CSF VDRL Lymph Enumerat CD4/CD8 Absolute CD3 Count % CD4 Cells Absolute CD4 Count % CD8 Cells Absolute CD19 Count T.pallidum Ab (FTA-ABS) HIV-1 RNA PCR copies/ml HIV-1 RNA (PCR) log Miscellaneous Test 09/21/18 09/22/18 09/22/18 22:57 03:01 05:27 WBC RBC Hgb Hct Plt Count Seg Neuts % (Manual) Lymphocytes % (Manual) Monocytes % (Manual) Eosinophils % (Manual) Basophils % (Manual) Nucleated RBC % Seg Neutrophils # Man Abs Lymphs (Manual) Lymphocytes # (Manual) PT INR APTT Heparin Anti-Xa Level POC ABG pH POC ABG pCO2 32.7 L POC ABG pO2 Sodium Potassium Chloride Carbon Dioxide BUN Creatinine Glucose POC Glucose 124 H 128 H Lactic Acid Calcium Phosphorus AST ALT Total Creatine Kinase Total Protein Albumin Vitamin B12 TSH Free T4 CSF VDRL Lymph Enumerat CD4/CD8 Absolute CD3 Count % CD4 Cells Absolute CD4 Count % CD8 Cells Absolute CD19 Count T.pallidum Ab (FTA-ABS) HIV-1 RNA PCR copies/ml HIV-1 RNA (PCR) log Miscellaneous Test 09/22/18 09/22/18 09/22/18 07:00 07:00 11:32 WBC 1.8 L* RBC 3.59 L Hgb 10.1 L Hct 30.8 L Plt Count 126 L Seg Neuts % (Manual) Lymphocytes % (Manual) Monocytes % (Manual) Eosinophils % (Manual) Basophils % (Manual) Nucleated RBC % Seg Neutrophils # Man Abs Lymphs (Manual) Lymphocytes # (Manual) PT INR APTT Heparin Anti-Xa Level POC ABG pH POC ABG pCO2 POC ABG pO2 Sodium Potassium Chloride Carbon Dioxide BUN 27 H Creatinine 2.0 H Glucose 128 H POC Glucose 123 H Lactic Acid Calcium 6.9 L Phosphorus AST ALT Total Creatine Kinase Total Protein Albumin Vitamin B12 TSH Free T4 CSF VDRL Lymph Enumerat CD4/CD8 Absolute CD3 Count % CD4 Cells Absolute CD4 Count % CD8 Cells Absolute CD19 Count T.pallidum Ab (FTA-ABS) HIV-1 RNA PCR copies/ml HIV-1 RNA (PCR) log Miscellaneous Test 09/22/18 09/22/18 09/22/18 15:52 18:18 23:52 WBC RBC Hgb Hct Plt Count Seg Neuts % (Manual) Lymphocytes % (Manual) Monocytes % (Manual) Eosinophils % (Manual) Basophils % (Manual) Nucleated RBC % Seg Neutrophils # Man Abs Lymphs (Manual) Lymphocytes # (Manual) PT INR APTT Heparin Anti-Xa Level POC ABG pH POC ABG pCO2 48.7 H POC ABG pO2 Sodium Potassium Chloride Carbon Dioxide BUN Creatinine Glucose POC Glucose 110 H 124 H Lactic Acid Calcium Phosphorus AST ALT Total Creatine Kinase Total Protein Albumin Vitamin B12 TSH Free T4 CSF VDRL Lymph Enumerat CD4/CD8 Absolute CD3 Count % CD4 Cells Absolute CD4 Count % CD8 Cells Absolute CD19 Count T.pallidum Ab (FTA-ABS) HIV-1 RNA PCR copies/ml HIV-1 RNA (PCR) log Miscellaneous Test 09/23/18 09/23/18 09/23/18 04:10 05:55 05:55 WBC RBC Hgb 10.0 L Hct 30.3 L Plt Count 117 L Seg Neuts % (Manual) Lymphocytes % (Manual) Monocytes % (Manual) Eosinophils % (Manual) Basophils % (Manual) Nucleated RBC % Seg Neutrophils # Man Abs Lymphs (Manual) Lymphocytes # (Manual) PT INR APTT Heparin Anti-Xa Level 0.26 L POC ABG pH POC ABG pCO2 POC ABG pO2 144 H Sodium Potassium Chloride Carbon Dioxide BUN Creatinine Glucose POC Glucose Lactic Acid Calcium Phosphorus AST ALT Total Creatine Kinase Total Protein Albumin Vitamin B12 TSH Free T4 CSF VDRL Lymph Enumerat CD4/CD8 Absolute CD3 Count % CD4 Cells Absolute CD4 Count % CD8 Cells Absolute CD19 Count T.pallidum Ab (FTA-ABS) HIV-1 RNA PCR copies/ml HIV-1 RNA (PCR) log Miscellaneous Test 09/23/18 09/23/18 09/23/18 08:10 08:10 23:57 WBC 1.3 L* RBC 3.53 L Hgb 9.9 L Hct 30.0 L Plt Count 119 L Seg Neuts % (Manual) Lymphocytes % (Manual) Monocytes % (Manual) Eosinophils % (Manual) Basophils % (Manual) Nucleated RBC % Seg Neutrophils # Man Abs Lymphs (Manual) Lymphocytes # (Manual) PT INR APTT Heparin Anti-Xa Level POC ABG pH POC ABG pCO2 POC ABG pO2 Sodium Potassium Chloride Carbon Dioxide BUN Creatinine Glucose 122 H POC Glucose 115 H Lactic Acid Calcium 6.9 L Phosphorus AST ALT Total Creatine Kinase Total Protein Albumin Vitamin B12 TSH Free T4 CSF VDRL Lymph Enumerat CD4/CD8 Absolute CD3 Count % CD4 Cells Absolute CD4 Count % CD8 Cells Absolute CD19 Count T.pallidum Ab (FTA-ABS) HIV-1 RNA PCR copies/ml HIV-1 RNA (PCR) log Miscellaneous Test 09/24/18 09/24/18 09/24/18 12:04 14:42 18:10 WBC RBC Hgb Hct Plt Count Seg Neuts % (Manual) Lymphocytes % (Manual) Monocytes % (Manual) Eosinophils % (Manual) Basophils % (Manual) Nucleated RBC % Seg Neutrophils # Man Abs Lymphs (Manual) Lymphocytes # (Manual) PT INR APTT Heparin Anti-Xa Level 0.76 H POC ABG pH POC ABG pCO2 POC ABG pO2 Sodium Potassium Chloride Carbon Dioxide BUN Creatinine Glucose POC Glucose 111 H 138 H Lactic Acid Calcium Phosphorus AST ALT Total Creatine Kinase Total Protein Albumin Vitamin B12 TSH Free T4 CSF VDRL Lymph Enumerat CD4/CD8 Absolute CD3 Count % CD4 Cells Absolute CD4 Count % CD8 Cells Absolute CD19 Count T.pallidum Ab (FTA-ABS) HIV-1 RNA PCR copies/ml HIV-1 RNA (PCR) log Miscellaneous Test 09/25/18 09/25/18 09/25/18 03:45 04:24 14:20 WBC RBC Hgb 9.7 L Hct 29.4 L Plt Count 104 L Seg Neuts % (Manual) Lymphocytes % (Manual) Monocytes % (Manual) Eosinophils % (Manual) Basophils % (Manual) Nucleated RBC % Seg Neutrophils # Man Abs Lymphs (Manual) Lymphocytes # (Manual) PT INR APTT Heparin Anti-Xa Level POC ABG pH 7.460 H POC ABG pCO2 32.9 L POC ABG pO2 Sodium Potassium 3.5 L Chloride 110.3 H Carbon Dioxide BUN Creatinine Glucose 105 H POC Glucose Lactic Acid Calcium 6.7 L Phosphorus AST 633 H ALT 481 H Total Creatine Kinase Total Protein 4.8 L D Albumin 1.9 L Vitamin B12 TSH Free T4 CSF VDRL Lymph Enumerat CD4/CD8 Absolute CD3 Count % CD4 Cells Absolute CD4 Count % CD8 Cells Absolute CD19 Count T.pallidum Ab (FTA-ABS) HIV-1 RNA PCR copies/ml HIV-1 RNA (PCR) log Miscellaneous Test 09/26/18 09/26/18 09/26/18 06:15 06:15 10:43 WBC 1.2 L* RBC 3.32 L Hgb 9.2 L Hct 28.6 L Plt Count 97 L Seg Neuts % (Manual) 24.0 L Lymphocytes % (Manual) 43.0 H Monocytes % (Manual) 19.0 H Eosinophils % (Manual) 8.0 H Basophils % (Manual) 2.0 H Nucleated RBC % 3.0 H Seg Neutrophils # Man 0.0 L Abs Lymphs (Manual) Lymphocytes # (Manual) 0.0 L PT INR APTT Heparin Anti-Xa Level POC ABG pH 7.459 H POC ABG pCO2 POC ABG pO2 141 H Sodium Potassium Chloride 112.8 H Carbon Dioxide BUN Creatinine Glucose 110 H POC Glucose Lactic Acid Calcium 7.0 L Phosphorus 0.90 L* AST 362 H ALT 360 H Total Creatine Kinase Total Protein 4.9 L Albumin 1.5 L Vitamin B12 TSH Free T4 CSF VDRL Lymph Enumerat CD4/CD8 Absolute CD3 Count % CD4 Cells Absolute CD4 Count % CD8 Cells Absolute CD19 Count T.pallidum Ab (FTA-ABS) HIV-1 RNA PCR copies/ml HIV-1 RNA (PCR) log Miscellaneous Test 09/26/18 09/27/18 09/28/18 13:56 04:11 07:49 WBC RBC Hgb 9.1 L Hct 29.1 L Plt Count 96 L Seg Neuts % (Manual) Lymphocytes % (Manual) Monocytes % (Manual) Eosinophils % (Manual) Basophils % (Manual) Nucleated RBC % Seg Neutrophils # Man Abs Lymphs (Manual) Lymphocytes # (Manual) PT INR APTT Heparin Anti-Xa Level POC ABG pH POC ABG pCO2 POC ABG pO2 Sodium 146 H Potassium Chloride 111.6 H Carbon Dioxide BUN Creatinine Glucose POC Glucose 135 H Lactic Acid Calcium 7.4 L Phosphorus AST ALT Total Creatine Kinase Total Protein Albumin Vitamin B12 TSH Free T4 CSF VDRL Lymph Enumerat CD4/CD8 Absolute CD3 Count % CD4 Cells Absolute CD4 Count % CD8 Cells Absolute CD19 Count T.pallidum Ab (FTA-ABS) HIV-1 RNA PCR copies/ml HIV-1 RNA (PCR) log Miscellaneous Test 09/28/18 10:43 WBC RBC Hgb Hct Plt Count Seg Neuts % (Manual) Lymphocytes % (Manual) Monocytes % (Manual) Eosinophils % (Manual) Basophils % (Manual) Nucleated RBC % Seg Neutrophils # Man Abs Lymphs (Manual) Lymphocytes # (Manual) PT INR APTT Heparin Anti-Xa Level POC ABG pH 7.300 L POC ABG pCO2 53.9 H POC ABG pO2 Sodium Potassium Chloride Carbon Dioxide BUN Creatinine Glucose POC Glucose Lactic Acid Calcium Phosphorus AST ALT Total Creatine Kinase Total Protein Albumin Vitamin B12 TSH Free T4 CSF VDRL Lymph Enumerat CD4/CD8 Absolute CD3 Count % CD4 Cells Absolute CD4 Count % CD8 Cells Absolute CD19 Count T.pallidum Ab (FTA-ABS) HIV-1 RNA PCR copies/ml HIV-1 RNA (PCR) log Miscellaneous Test Chest x-ray: image reviewed Allied health notes reviewed: nursing
--- NOTE | 2018-09-28 12:52 | Progress Note ---
Assessment and Plan Currently stable cardiac status. continue medical management as per the primary care team, patient is on heparin gtt, awaiting decision on vent as patient may need to be trached. Will follow on as needed basis. The patient has been seen in conjunction with Dr. Caesar Zapata who agrees with the assessment and plan of care. - Patient Problems (1) Acute respiratory failure Current Visit: Yes Status: Acute (2) Atrial fibrillation and flutter Current Visit: Yes Status: Resolved (3) Sepsis Current Visit: Yes Status: Acute (4) HIV (human immunodeficiency virus infection) Current Visit: Yes Status: Chronic (5) AIDS Current Visit: Yes Status: Suspected (6) Neurosyphilis Current Visit: Yes Status: Acute (7) Neutropenia Current Visit: Yes Status: Acute (8) Pneumonia Current Visit: Yes Status: Acute (9) Diarrhea Current Visit: Yes Status: Acute (10) Bradycardia Current Visit: Yes Status: Acute (11) Hypothyroidism Current Visit: Yes Status: Suspected (12) Encephalopathy Current Visit: Yes Status: Acute Subjective Date of service: 09/28/18 Principal diagnosis: Severe sepsis; Ac hypoxemic Resp failure; [place]. Pneumonia; Ac encephalopathy Interval history: pt remains intubated. in SR. no family members at bedside. Objective Last Vital Signs Temp 99.1 F 09/28/18 12:00 Pulse 86 09/28/18 12:06 Resp 22 09/28/18 12:06 BP 107/54 09/28/18 12:06 Pulse Ox 99 09/28/18 12:06 - Physical Examination General: Other (intubated) HEENT: Positive: PERRL Neck: Positive: neck supple. Negative: JVD/HJR Cardiac: Positive: Reg Rate and Rhythm, irregularly irregular Lungs: Positive: Decreased Breath Sounds Neuro: Positive: Other (intubated) Abdomen: Positive: Unremarkable Skin: Negative: Rash Musculoskeletal: No Fluid Collection, Normal Range of Motion Extremities: Present: edema, +1 Edema - Labs and Meds Comprehensive Metabolic Panel 09/28/18 Range/Units 07:49 Sodium 146 H (137-145) mmol/L Potassium 3.8 (3.6-5.0) mmol/L Chloride 111.6 H (98-107) mmol/L Carbon Dioxide 25 (22-30) mmol/L BUN 17 (9-20) mg/dL Creatinine 1.1 (0.8-1.5) mg/dL Glucose 98 (75-100) mg/dL Calcium 7.4 L (8.4-10.2) mg/dL - Imaging and Cardiology EKG: report reviewed, image reviewed Echo: report reviewed ( normal LV, no significant valvular abnormalities. ) - EKG Sinus rhythms and dysrhythmias: sinus rhythm, sinus arrest or pause (Patient had very transient junctional rythm at rate of 35/mt,with sinus pause,lasted< one minute,reverted to judson S.R at >90/mt at 08:12 AM,09/18/2018.) - Allied health notes Allied health notes reviewed: nursing
--- NOTE | 2018-09-28 13:14 | Progress Note ---
Assessment and Plan Assessment and plan: Severe Sepsis. Etiology secondary to bacterial pneumonia +/- gastroenteritis with newly diagnosed with HIV. Continue IV antibiotics per ID. Acute hypoxemic respiratory failure. Etiology secondary to sepsis/multifocal pneumonia with probable concomitant aspiration. Intubated, on vent. Pulm following Bilateral pneumonia. Etiology likely secondary to PJP Pneumonia +/- aspiration. Chest x-ray, CT scan reveals multifocal pneumonia. Tracheal aspirate with Nona albicans. Toxic metabolic encephalopathy. 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 Of note, MRI did not show ventriculitis. Blood CMV DNA PCR = 1,058,978. CSF YAYO virus DNA PCR neg. Gastroenteritis. Follow-up stool studies and CT scan of the abdomen and pelvis--check for colitis when patient is hemodynamically stable. Continue antibiotics per ID A. fib with RVR. Converted to NSR. cont Amiodarone 200 bid Cont Heparin drip. 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 Diarrhea. Resolved, etiology likely secondary to Giardia. Giardia antigen positive in stool. Oral candidiasis. Continue fluconazole. HIV/AIDS. New Diagnosis. Neutropenia/thrombocytopenia. Likely from HIV myelosuppression, sepsis Prognosis is guarded. The high probability of a clinically significant, sudden or life threatening deterioration of the [4] system(s) required my full and direct attention, intervention and personal management. The aggregate critical care time was [32] minutes. This time is in addition to time spent performing reported procedures but includes the following: [x] Data Review and interpretation [x] Patient assessment and monitoring of vital signs [x] Documentation [x] Medication orders and management History Interval history: Patient transferred to ICU,now intubated, on vent Fever Hospitalist Physical - Physical exam Narrative exam: GEN: Intubated, on ventilator HEENT: Normocephalic, atraumatic, Neck: supple, No JVD Lungs: Bilateral coarse breath sounds, Heart:S1 and S2 regular, no murmurs, rubs or gallop, Abd:soft, non tender, non distended, normal bowel sounds Ext: No edema, no clubbing or cyanosis Neuro: Intubated - Constitutional Vitals: Temp Pulse Resp BP Pulse Ox 99.1 F 86 22 107/54 99 09/28/18 12:00 09/28/18 12:06 09/28/18 12:06 09/28/18 12:06 09/28/18 12:06 General appearance: Present: other (orally intubated) Results - Labs CBC & Chem 7: 09/27/18 04:11 09/28/18 07:49 Labs: Laboratory Last Values WBC 1.2 K/mm3 (4.5-11.0) L* 09/26/18 06:15 RBC 3.32 M/mm3 (3.65-5.03) L 09/26/18 06:15 Hgb 9.1 gm/dl (11.8-15.2) L 09/27/18 04:11 Hct 29.1 % (35.5-45.6) L 09/27/18 04:11 MCV 86 fl (84-94) 09/26/18 06:15 MCH 28 pg (28-32) 09/26/18 06:15 MCHC 32 % (32-34) 09/26/18 06:15 RDW 14.5 % (13.2-15.2) 09/26/18 06:15 Plt Count 96 K/mm3 (140-440) L 09/27/18 04:11 [place] % (Auto) Storage Management Consultant 09/26/18 06:15 Add Manual Diff Complete 09/26/18 06:15 Total Counted 100 09/26/18 06:15 Seg Neutrophils % Storage Management Consultant 09/26/18 06:15 Seg Neuts % (Manual) 24.0 % (40.0-70.0) L 09/26/18 06:15 Band Neutrophils % 0 % 09/26/18 06:15 Lymphocytes % (Manual) 43.0 % (13.4-35.0) H 09/26/18 06:15 Reactive Lymphs % (Man) 0 % 09/26/18 06:15 Monocytes % (Manual) 19.0 % (0.0-7.3) H 09/26/18 06:15 Eosinophils % (Manual) 8.0 % (0.0-4.3) H 09/26/18 06:15 Basophils % (Manual) 2.0 % (0.0-1.8) H 09/26/18 06:15 Metamyelocytes % 0 % 09/26/18 06:15 Myelocytes % 4.0 % 09/26/18 06:15 Promyelocytes % 0 % 09/26/18 06:15 Blast Cells % 0 % 09/26/18 06:15 Nucleated RBC % 3.0 % (0.0-0.9) H 09/26/18 06:15 Seg Neutrophils # Man 0.0 K/mm3 (1.8-7.7) L 09/26/18 06:15 Band Neutrophils # 0.0 K/mm3 09/26/18 06:15 Abs Lymphs (Manual) 309 cells/uL (850-3900) L 09/13/18 12:29 Lymphocytes # (Manual) 0.0 K/mm3 (1.2-5.4) L 09/26/18 06:15 Abs React Lymphs (Man) 0.0 K/mm3 09/26/18 06:15 Monocytes # (Manual) 0.0 K/mm3 (0.0-0.8) 09/26/18 06:15 Eosinophils # (Manual) 0.0 K/mm3 (0.0-0.4) 09/26/18 06:15 Basophils # (Manual) 0.0 K/mm3 (0.0-0.1) 09/26/18 06:15 Metamyelocytes # 0.0 K/mm3 09/26/18 06:15 Myelocytes # 0.0 K/mm3 09/26/18 06:15 Promyelocytes # 0.0 K/mm3 09/26/18 06:15 Blast Cells # 0.0 K/mm3 09/26/18 06:15 WBC Morphology Not Reportable 09/26/18 06:15 Hypersegmented Neuts Not Reportable 09/26/18 06:15 Hyposegmented Neuts Not Reportable 09/26/18 06:15 Hypogranular Neuts Not Reportable 09/26/18 06:15 Smudge Cells Not Reportable 09/26/18 06:15 Toxic Granulation Not Reportable 09/26/18 06:15 Toxic Vacuolation Not Reportable 09/26/18 06:15 Dohle Bodies Not Reportable 09/26/18 06:15 Pelger-Huet Anomaly Not Reportable 09/26/18 06:15 Giovanna Rods Not Reportable 09/26/18 06:15 Platelet Estimate Consistent w auto 09/26/18 06:15 Clumped Platelets Not Reportable 09/26/18 06:15 Plt Clumps, EDTA Not Reportable 09/26/18 06:15 Large Platelets Not Reportable 09/26/18 06:15 Giant Platelets Not Reportable 09/26/18 06:15 Platelet Satelliting Not Reportable 09/26/18 06:15 Plt Morphology Comment Not Reportable 09/26/18 06:15 RBC Morphology Not Reportable 09/26/18 06:15 Dimorphic RBCs Not Reportable 09/26/18 06:15 Polychromasia Not Reportable 09/26/18 06:15 Hypochromasia Not Reportable 09/26/18 06:15 Poikilocytosis 1+ 09/26/18 06:15 Anisocytosis 1+ 09/26/18 06:15 Microcytosis Not Reportable 09/26/18 06:15 Macrocytosis Few 09/26/18 06:15 Spherocytes Not Reportable 09/26/18 06:15 Pappenheimer Bodies Not Reportable 09/26/18 06:15 Sickle Cells Not Reportable 09/26/18 06:15 Target Cells Rare 09/26/18 06:15 Tear Drop Cells Not Reportable 09/26/18 06:15 Ovalocytes 1+ 09/26/18 06:15 Stomatocytes Few 09/21/18 04:15 Helmet Cells Not Reportable 09/26/18 06:15 [place] Bodies Not Reportable 09/26/18 06:15 [place] Rings Not Reportable 09/26/18 06:15 [place] Cells Not Reportable 09/26/18 06:15 Bite Cells Not Reportable 09/26/18 06:15 Crenated Cell Not Reportable 09/26/18 06:15 Elliptocytes 1+ 09/26/18 06:15 Acanthocytes (Spur) Not Reportable 09/26/18 06:15 Rouleaux Not Reportable 09/26/18 06:15 Hemoglobin C Crystals Not Reportable 09/26/18 06:15 Schistocytes Not Reportable 09/26/18 06:15 Malaria parasites Not Reportable 09/26/18 06:15 Kieran Bodies Not Reportable 09/26/18 06:15 Hem Pathologist Commnt No 09/26/18 06:15 PT 19.9 Sec. (12.2-14.9) H 09/21/18 15:00 INR 1.65 (0.87-1.13) H 09/21/18 15:00 APTT 40.9 Sec. (24.2-36.6) H 09/21/18 15:00 Heparin Anti-Xa Level 0.56 U.I./ml (0.3-0.7) 09/27/18 21:05 POC ABG pH 7.300 (7.35-7.45) L 09/28/18 10:43 POC ABG pCO2 53.9 (35-45) H 09/28/18 10:43 POC ABG pO2 97 (80-105) 09/28/18 10:43 POC ABG HCO3 26.5 09/28/18 10:43 POC ABG Total CO2 28 09/28/18 10:43 POC ABG O2 Sat 97 09/28/18 10:43 POC ABG Base Excess 0 09/28/18 10:43 FiO2 25 % 09/28/18 10:43 Sodium 146 mmol/L (137-145) H 09/28/18 07:49 Potassium 3.8 mmol/L (3.6-5.0) 09/28/18 07:49 Chloride 111.6 mmol/L (98-107) H 09/28/18 07:49 Carbon Dioxide 25 mmol/L (22-30) 09/28/18 07:49 Anion Gap 13 mmol/L 09/28/18 07:49 BUN 17 mg/dL (9-20) 09/28/18 07:49 Creatinine 1.1 mg/dL (0.8-1.5) 09/28/18 07:49 Estimated GFR > 60 ml/min 09/28/18 07:49 BUN/Creatinine Ratio 15 % 09/28/18 07:49 Glucose 98 mg/dL (75-100) 09/28/18 07:49 POC Glucose 86 (70-105) 09/28/18 12:15 Lactic Acid 0.90 mmol/L (0.7-2.0) 09/11/18 20:17 Calcium 7.4 mg/dL (8.4-10.2) L 09/28/18 07:49 Phosphorus 3.10 mg/dL (2.5-4.5) D 09/27/18 04:11 Magnesium 1.80 mg/dL (1.7-2.3) 09/26/18 06:15 Total Bilirubin 0.20 mg/dL (0.1-1.2) 09/26/18 06:15 Direct Bilirubin < 0.2 mg/dL (0-0.2) 09/13/18 07:31 AST 362 units/L (5-40) H 09/26/18 06:15 ALT 360 units/L (7-56) H 09/26/18 06:15 Alkaline Phosphatase 69 units/L (35-129) 09/26/18 06:15 Ammonia 47.0 umol/L (25-60) 09/16/18 11:41 Total Creatine Kinase 685 units/L (55-170) H 09/21/18 04:25 CK-MB (CK-2) 3.5 ng/mL (0.0-4.0) 09/21/18 04:25 CK-MB (CK-2) Rel Index 0.5 (0-4) 09/21/18 04:25 NT-Pro-B Natriuret Pep 145.9 pg/mL (0-450) 09/18/18 16:07 Total Protein 4.9 g/dL (6.3-8.2) L 09/26/18 06:15 Albumin 1.5 g/dL (3.9-5) L 09/26/18 06:15 Albumin/Globulin Ratio 0.4 % 09/26/18 06:15 Vitamin B12 934.5 pg/mL (211-911) H 09/16/18 11:41 TSH 5.190 mlU/mL (0.270-4.200) H 09/18/18 12:46 Free T4 0.75 ng/dL (0.76-1.46) L 09/18/18 12:46 Urine Color [place] (Yellow) 09/11/18 Unknown Urine Turbidity Clear (Clear) 09/11/18 Unknown Urine pH 5.0 (5.0-7.0) 09/11/18 Unknown Ur Specific [place] 1.016 (1.003-1.030) 09/11/18 Unknown Urine Protein <15 mg/dl mg/dL (Negative) 09/11/18 Unknown Urine Glucose (UA) Neg mg/dL (Negative) 09/11/18 Unknown Urine Ketones Neg mg/dL (Negative) 09/11/18 Unknown Urine Blood Sm (Negative) 09/11/18 Unknown Urine Nitrite Neg (Negative) 09/11/18 Unknown Urine Bilirubin Neg (Negative) 09/11/18 Unknown Urine Urobilinogen < 2.0 mg/dL (<2.0) 09/11/18 Unknown Ur Leukocyte Esterase Neg (Negative) 09/11/18 Unknown Urine WBC (Auto) 1.0 /HPF (0.0-6.0) 09/11/18 Unknown Urine RBC (Auto) 3.0 /HPF (0.0-6.0) 09/11/18 Unknown Urine Mucus Few /HPF 09/11/18 Unknown CSF Appearance Clear 09/19/18 15:00 CSF Color Colorless 09/19/18 15:00 CSF WBC 4 /mm3 (1-10) 09/19/18 15:00 CSF RBC 583 /mm3 (0-0) 09/19/18 15:00 CSF Seg Neutrophils 21.4 % (0-6) 09/19/18 15:00 CSF Lymphocytes % 71.4 % (40-80) 09/19/18 15:00 CSF Reactive Lymphs 0 % 09/19/18 15:00 CSF Monocytes % 7.1 % (15-45) 09/19/18 15:00 CSF Eosinophils % 0 % 09/19/18 15:00 CSF Basophils 0 % 09/19/18 15:00 CSF Pathologist Review C 09/19/18 15:00 CSF Glucose 32 mg/dL 09/19/18 15:00 CSF Total Protein 123 mg/dL 09/19/18 15:00 CSF VDRL Reactive 1:4 (Nonreactive) H 09/19/18 15:00 Vancomycin Trough 14.3 ug/mL (5.0-20.0) 09/25/18 14:45 Urine Opiates Screen Presumptive negative 09/17/18 15:52 Urine Methadone Screen Presumptive negative 09/17/18 15:52 Ur Barbiturates Screen Presumptive negative 09/17/18 15:52 Ur Phencyclidine Scrn Presumptive negative 09/17/18 15:52 Ur Amphetamines Screen Presumptive negative 09/17/18 15:52 U Benzodiazepines Scrn Presumptive negative 09/17/18 15:52 Urine Cocaine Screen Presumptive negative 09/17/18 15:52 U Marijuana (THC) Screen Presumptive negative 09/17/18 15:52 Drugs of Abuse Note Disclamer 09/17/18 15:52 Lymph Enumerat CD4/CD8 0.01 (0.86-5.00) L 09/13/18 12:29 % CD3 Cells 71 % (57-85) 09/13/18 12:29 Absolute CD3 Count 220 cells/uL (840-3060) L 09/13/18 12:29 % CD4 Cells 1 % (30-61) L 09/13/18 12:29 Absolute CD4 Count 4 cells/uL (490-1740) L 09/13/18 12:29 % CD8 Cells 70 % (12-42) H 09/13/18 12:29 Absolute CD8 Count 216 cells/uL (180-1170) 09/13/18 12:29 % CD19 Cells 17 % (6-29) 09/13/18 12:29 Absolute CD19 Count 54 cells/uL (110-660) L 09/13/18 12:29 RPR Titer 1:16 09/13/18 12:29 RPR Reactive (Nonreactive) 09/13/18 12:29 T.pallidum Ab (FTA-ABS) Reactive (Nonreactive) H 09/14/18 16:34 C. 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 See scanned result 09/16/18 12:03 Hepatitis A IgM Ab Non-reactive (NonReactive) 09/13/18 12:29 Hep Bs Antigen Non-reactive (Negative) 09/13/18 12:29 Hep B Core IgM Ab Non-reactive (NonReactive) 09/13/18 12:29 Hepatitis C Antibody Non-reactive (NonReactive) 09/13/18 12:29 HIV-1 Antibody See scanned result 09/11/18 19:14 HIV-1 RNA PCR copies/ml [id number] Copies/mL H 09/13/18 12:29 HIV-1 RNA (PCR) log 4.71 Log cps/mL H 09/13/18 12:29 HIV-2 Ab (Immunoblot) See scanned result 09/11/18 19:14 HIV 1&2 Antibody Rapid Reactive (Non React) 09/11/18 19:14 HIV P24 Antigen Non react (Non React) 09/11/18 19:14 Influenza A (Rapid) Negative (Negative) 09/13/18 16:05 Influenza A (RT-PCR) Negative (Negative) 09/13/18 16:05 Influenza B (Rapid) Negative (Negative) 09/13/18 16:05 Influenza B (RT-PCR) Negative (Negative) 09/13/18 16:05 Toxoplasma IgG Ab <7.20 IU/mL (<7.20) 09/16/18 12:09 Miscellaneous Test see below 09/21/18 03:55 Nutrition/Malnutrition Assess - Dietary Evaluation Nutrition/Malnutrition Findings: Nutrition Notes Start: 09/12/18 17:45 Freq: Status: Active Protocol: Document 09/28/18 10:40 CT (Rec: 09/28/18 11:48 CT [id number]) Co-Sign 09/28/18 10:40 NHALL Nutrition Notes Initial or Follow up Brief Note Current Diet TF- Vital High Protein at 70ml /hr Subjective/Other Information Pt continues to be intubated. TF running at goal (70ml). Nutrition Intervention Follow-Up By: 09/30/18 Additional Comments F/U: reassesment
[2018-09-29] MEDS: CYTOVENE 500 MG in NACL 0.9% 250ML 250 ML IV SCH ×2 (01:10→14:58)
[2018-09-29] MEDS: LOPRESSOR IV SCH ×4 (04:13→22:30)
[2018-09-29] MEDS: PROVENTIL IH SCH ×4 (04:39→20:10)
[2018-09-29 05:20] LABS: Hematocrit 27.3 % (35.5-45.6); Hemoglobin 8.6 gm/dl (11.8-15.2); Mean Corpuscular HGB Conc 32 % (32-34); Mean Corpuscular Volume 87 fl (84-94); Platelet Count 137 K/mm3 (140-440); Red Blood Count 3.13 M/mm3 (3.65-5.03); Red Cell Distribution Width 14.7 % (13.2-15.2)
[2018-09-29] MEDS: ROBINUL PO SCH ×3 (05:21→22:31)
[2018-09-29] MEDS: FLAGYL PO SCH ×3 (05:21→22:29)
[2018-09-29] MEDS: SYNTHROID PO SCH (05:21)
[2018-09-29 05:43] LABS: Alanine Aminotransferase 110 units/L (7-56); Albumin 1.9 g/dL (3.9-5); BUN/Creatinine Ratio 17; Blood Urea Nitrogen 19 mg/dL (9-20); Calcium 7.7 mg/dL (8.4-10.2); Hemolysis Index 3
[2018-09-29 06:13] LABS: Anisocytosis 1+; Basophils % (Manual) 0 % (0.0-1.8); Eosinophils % (Manual) 0 % (0.0-4.3); Large Platelets Few; Total Cells Counted 25
[2018-09-29 06:14] LABS: Hypochromasia 1+; Macrocytosis Rare; Ovalocytes 2+; Stomatocytes 1+; Target Cells Few
--- NOTE | 2018-09-29 06:29 | Progress Note ---
Assessment and Plan - Patient Problems (1) Acute kidney failure with tubular necrosis Current Visit: Yes Status: Acute Plan to address problem: Overall renal function is stable. Need for close monitoring while receiving IV ganciclovir. Remains non oliguric. Continue to monitor. Renal function remains stable this am. (2) Hypernatremia Current Visit: Yes Status: Acute Plan to address problem: Increased free water flushes with TF to 100 cc q4h. Will continue to monitor (3) Acute respiratory failure with hypoxia Current Visit: Yes Status: Acute Plan to address problem: Remains intubated. Recent Chest xray noted, with development of patchy infiltrates in the right lung. Further management per pulm/ICU (4) Hypokalemia Current Visit: Yes Status: Acute Plan to address problem: Replete per protocol to maintain levels above 3.5. 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 Will continue to monitor. (6) Pancytopenia Current Visit: Yes Status: Acute Plan to address problem: In the setting of CMV viremia, HIV/AIDS. (7) HIV (human immunodeficiency virus infection) Current Visit: Yes Status: Chronic Plan to address problem: Management per ID recommendations. Subjective Date of service: 09/29/18 Principal diagnosis: Severe sepsis; Ac hypoxemic Resp failure; [place]. Pneumonia; Ac encephalopathy Interval history: No acute changes. Labs noted, Instructed to increases free water flushes with TF to 100 q4. Leukopenia noted, on IV ganciclovir. He remains non oliguric, renal function overall is stable. Objective - Vital Signs Vital signs: Vital Signs - 12hr 09/28/18 09/28/18 09/28/18 18:30 19:00 19:30 Temperature Pulse Rate 86 97 H 94 H Pulse Rate [ Anterior Bilateral Throughout] Pulse Rate [ From Monitor] Pulse Rate [ Throughout] Respiratory 19 23 16 Rate Respiratory Rate [Anterior Bilateral Throughout] Respiratory Rate [ Throughout] Blood Pressure 137/67 110/55 126/65 O2 Sat by Pulse 100 99 99 Oximetry 09/28/18 09/28/18 09/28/18 20:00 20:21 20:30 Temperature 99.7 F H Pulse Rate 95 H 73 Pulse Rate [ Anterior Bilateral Throughout] Pulse Rate [ 95 H From Monitor] Pulse Rate [ 110 H Throughout] Respiratory 23 16 Rate Respiratory Rate [Anterior Bilateral Throughout] Respiratory 20 Rate [ Throughout] Blood Pressure 105/51 126/65 O2 Sat by Pulse 99 99 Oximetry 09/28/18 09/28/18 09/28/18 20:31 20:32 21:00 Temperature Pulse Rate 74 89 Pulse Rate [ 120 H Anterior Bilateral Throughout] Pulse Rate [ From Monitor] Pulse Rate [ Throughout] Respiratory 20 16 Rate Respiratory 12 Rate [Anterior Bilateral Throughout] Respiratory Rate [ Throughout] Blood Pressure 115/51 125/59 O2 Sat by Pulse 98 99 Oximetry 09/28/18 09/28/18 09/28/18 21:30 21:32 22:00 Temperature Pulse Rate 101 H 89 106 H Pulse Rate [ Anterior Bilateral Throughout] Pulse Rate [ From Monitor] Pulse Rate [ Throughout] Respiratory 18 24 Rate Respiratory Rate [Anterior Bilateral Throughout] Respiratory Rate [ Throughout] Blood Pressure 114/56 125/59 114/46 O2 Sat by Pulse 99 100 Oximetry 09/28/18 09/28/18 09/28/18 22:30 23:00 23:06 Temperature Pulse Rate 101 H 100 H 99 H Pulse Rate [ Anterior Bilateral Throughout] Pulse Rate [ From Monitor] Pulse Rate [ Throughout] Respiratory 17 18 17 Rate Respiratory Rate [Anterior Bilateral Throughout] Respiratory Rate [ Throughout] Blood Pressure 137/57 117/48 117/48 O2 Sat by Pulse 100 100 100 Oximetry 09/28/18 09/28/18 09/29/18 23:30 23:32 00:00 Temperature 100.0 F H Pulse Rate 91 H 94 H 97 H Pulse Rate [ Anterior Bilateral Throughout] Pulse Rate [ 97 H From Monitor] Pulse Rate [ Throughout] Respiratory 21 16 23 Rate Respiratory Rate [Anterior Bilateral Throughout] Respiratory Rate [ Throughout] Blood Pressure 122/48 122/48 125/48 O2 Sat by Pulse 100 100 100 Oximetry 09/29/18 09/29/18 09/29/18 00:21 00:30 01:00 Temperature Pulse Rate 98 H 69 102 H Pulse Rate [ Anterior Bilateral Throughout] Pulse Rate [ From Monitor] Pulse Rate [ Throughout] Respiratory 13 16 Rate Respiratory Rate [Anterior Bilateral Throughout] Respiratory Rate [ Throughout] Blood Pressure 125/48 118/60 O2 Sat by Pulse 100 99 99 Oximetry 09/29/18 09/29/18 09/29/18 01:30 02:00 02:30 Temperature Pulse Rate 96 H 98 H 95 H Pulse Rate [ Anterior Bilateral Throughout] Pulse Rate [ From Monitor] Pulse Rate [ Throughout] Respiratory 13 18 22 Rate Respiratory Rate [Anterior Bilateral Throughout] Respiratory Rate [ Throughout] Blood Pressure 125/56 118/60 117/52 O2 Sat by Pulse 100 100 99 Oximetry 09/29/18 09/29/18 09/29/18 03:00 03:30 04:00 Temperature 100.6 F H Pulse Rate 93 H 82 110 H Pulse Rate [ Anterior Bilateral Throughout] Pulse Rate [ 91 H From Monitor] Pulse Rate [ Throughout] Respiratory 15 21 16 Rate Respiratory Rate [Anterior Bilateral Throughout] Respiratory Rate [ Throughout] Blood Pressure 126/51 134/52 106/39 O2 Sat by Pulse 100 99 99 Oximetry 09/29/18 09/29/18 09/29/18 04:13 04:30 04:35 Temperature Pulse Rate 93 H 96 H 109 H Pulse Rate [ Anterior Bilateral Throughout] Pulse Rate [ From Monitor] Pulse Rate [ 120 H Throughout] Respiratory 21 Rate Respiratory Rate [Anterior Bilateral Throughout] Respiratory 18 Rate [ Throughout] Blood Pressure 126/51 118/51 O2 Sat by Pulse 100 100 Oximetry 09/29/18 09/29/18 04:44 05:00 Temperature Pulse Rate 100 H Pulse Rate [ Anterior Bilateral Throughout] Pulse Rate [ From Monitor] Pulse Rate [ 125 H Throughout] Respiratory 14 Rate Respiratory Rate [Anterior Bilateral Throughout] Respiratory 12 Rate [ Throughout] Blood Pressure 128/55 O2 Sat by Pulse 100 Oximetry - General Appearance General appearance: appears stated age, intubated EENT: ATNC, PERRL Neck: no JVD, no thyromegaly, supple Respiratory: Present: Clear to Ascultation Cardiology: regular, S1S2 Gastrointestinal: normal, normoactive bowel sounds Integumentary: warm and dry Neurologic: other (lethargic, not following commands, spontanoues eye opening ) Musculoskeletal: other (mild non pitting edema ) Psychiatric: other (lethargic) - Lab 09/29/18 05:00 09/29/18 05:00 Most recent lab results Calcium 7.7 mg/dL (8.4-10.2) L 09/29/18 05:00 Phosphorus 3.10 mg/dL (2.5-4.5) D 09/27/18 04:11 Magnesium 1.80 mg/dL (1.7-2.3) 09/26/18 06:15 - Imaging Chest x-ray: report reviewed - Allied health notes Allied health notes reviewed: nursing Medications & Allergies - Medications Allergies/Adverse Reactions: Allergies No Known Allergies Allergy (Unverified 09/11/18 17:50) Active Medications: Generic Name Dose Route Start Last Admin Trade Name Freq PRN Reason Stop Dose Admin Acetaminophen 650 mg 09/11/18 19:30 09/23/18 08:41 Tylenol PO 650 mg Q4H PRN Administration Pain MILD(1-3)/Fever >100.5/RIVERA Acetaminophen 650 mg 09/21/18 07:39 Tylenol [place] Q4H PRN Fever >101 Albuterol 2.5 mg 09/11/18 19:30 09/16/18 06:09 Proventil IH 2.5 mg Q4HRT PRN Administration Shortness Of Breath Albuterol 2.5 mg 09/20/18 20:00 09/29/18 04:39 Proventil IH 2.5 mg Q6HRT GIA Administration Amiodarone HCl 200 mg 09/27/18 15:00 09/28/18 22:19 Cordarone PO 200 mg BID GIA Administration Lipase/Protease/Amylase 1 each 09/26/18 14:18 Pancrealen Gibbs 10,500 Unit FEEDTUBE PRN PRN For Clogged Feeding Tube Atovaquone 750 mg 09/21/18 10:00 09/28/18 21:54 Mepron PO 750 mg BID GIA Administration Azithromycin 1,200 mg 09/25/18 10:00 09/25/18 10:00 Zithromax PO 1,200 mg [place] GIA Administration Famotidine 20 mg 09/24/18 10:00 09/28/18 22:19 Pepcid PO 20 mg BID GIA Administration Glycopyrrolate 2 mg 09/23/18 15:00 09/29/18 05:21 Robinul PO 2 mg Q8HR GIA Administration Hydrophilic Ointment 1 applic 09/21/18 01:46 09/22/18 03:46 Vaseline Lip Therapy TP 1 applic Q2HR PRN Administration Dry Lips Fluconazole 200 mls @ 100 mls/hr 09/13/18 14:00 09/28/18 09:03 Diflucan IV 100 mls/hr Q24HR GIA Administration Protocol Heparin Sodium/Sodium Chloride 25,000 unit in 500 mls @ 30 mls/hr 09/21/18 11:00 09/28/18 23:15 Heparin/ 0.45% Nacl-25,000 Unit/500 Ml IV 1,300 units/hr TITR GIA 26 mls/hr Administration Protocol 1,500 UNITS/HR Ganciclovir Sodium 500 mg/ 250 mls @ 100 mls/hr 09/23/18 13:00 09/29/18 01:10 Sodium Chloride IV 100 mls/hr Q12H GIA Administration Ceftriaxone Sodium 2 gm in 100 mls @ 200 mls/hr 09/23/18 13:00 09/28/18 21:53 Rocephin/Ns 2 Gm/100 Ml IV 200 mls/hr Q12HR GIA Administration Protocol Levothyroxine Sodium 25 mcg 09/19/18 06:00 09/29/18 05:21 Synthroid PO 25 mcg DAILY@0600 GIA Administration Metoclopramide HCl 5 mg 09/27/18 22:00 09/28/18 21:53 Reglan IV 5 mg BID [facility] Administration Metoprolol Tartrate 5 mg 09/21/18 03:00 09/29/18 04:13 Lopressor IV Not Given Q6H [facility] Metronidazole 500 mg 09/26/18 14:00 09/29/18 05:21 Flagyl PO 500 mg Q8HR GIA Administration Protocol Multi-Ingred Cream/Lotion/Oil/Oint 1 applic 09/21/18 01:46 Artificial Tears Ophth Oint OU Q4HR PRN Dry Eye(s) Ondansetron HCl 4 mg 09/11/18 19:30 Zofran IV Q8H PRN Nausea And Vomiting Scopolamine 1 each 09/18/18 18:00 09/27/18 18:35 Transderm-Scop TD 1 each Q3D GIA Administration Simple Syrup 15 ml 09/26/18 14:18 Simple Syrup FEEDTUBE PRN PRN Hypoglycemia Simple Syrup 30 ml 09/26/18 14:18 Simple Syrup FEEDTUBE PRN PRN Hypoglycemia Sodium Bicarbonate 325 mg 09/26/18 14:18 Sodium Bicarbonate FEEDTUBE PRN PRN For Clogged Feeding Tube Sodium Chloride 10 ml 09/11/18 22:00 09/28/18 21:53 Sodium Chloride Flush Syringe 10 Ml IV 10 ml BID GIA Administration Sodium Chloride 10 ml 09/11/18 19:30 Sodium Chloride Flush Syringe 10 Ml IV PRN PRN LINE FLUSH
[2018-09-29] MEDS ORDERED: POTASSIUM CHLORIDE FEEDTUBE ONE (08:00)
--- NOTE | 2018-09-29 09:03 | Progress Note ---
Assessment and Plan Assessment and plan: Severe Sepsis. Etiology secondary to bacterial pneumonia +/- gastroenteritis with newly diagnosed with HIV. Continue IV antibiotics per ID. Acute hypoxemic respiratory failure. Etiology secondary to sepsis/multifocal pneumonia with probable concomitant aspiration. Intubated, on vent. Pulm following Bilateral pneumonia. Etiology likely secondary to PJP Pneumonia +/- aspiration. Chest x-ray, CT scan reveals multifocal pneumonia. Tracheal aspirate with Nona albicans. Toxic metabolic encephalopathy. 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 Of note, MRI did not show ventriculitis. Blood CMV DNA PCR = 1,058,978. CSF YAYO virus DNA PCR neg. Gastroenteritis. Follow-up stool studies and CT scan of the abdomen and pelvis--check for colitis when patient is hemodynamically stable. Continue antibiotics per ID A. fib with RVR. Converted to NSR. cont Amiodarone 200 bid Cont Heparin drip. 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 Diarrhea. Resolved, etiology likely secondary to Giardia. Giardia antigen positive in stool. Oral candidiasis. Continue fluconazole. HIV/AIDS. New Diagnosis. Neutropenia/thrombocytopenia. Likely from HIV myelosuppression, sepsis Fever. Temp 100.9 this morning Prognosis is guarded. The high probability of a clinically significant, sudden or life threatening deterioration of the [4] system(s) required my full and direct attention, intervention and personal management. The aggregate critical care time was [33] minutes. This time is in addition to time spent performing reported procedures but includes the following: [x] Data Review and interpretation [x] Patient assessment and monitoring of vital signs [x] Documentation [x] Medication orders and management History Interval history: Patient transferred to ICU,now intubated, on vent Fever, temp 100.9 this morning Hospitalist Physical - Physical exam Narrative exam: GEN: Intubated, on ventilator HEENT: Normocephalic, atraumatic, Neck: supple, No JVD Lungs: Bilateral coarse breath sounds, Heart:S1 and S2 regular, no murmurs, rubs or gallop, Abd:soft, non tender, non distended, normal bowel sounds Ext: No edema, no clubbing or cyanosis Neuro: Intubated - Constitutional Vitals: Temp Pulse Resp BP Pulse Ox 100.9 F H 102 H 11 L 123/69 100 09/29/18 08:00 09/29/18 09:00 09/29/18 09:00 09/29/18 09:00 09/29/18 09:00 General appearance: Present: other (orally intubated) Results - Labs CBC & Chem 7: 09/29/18 05:00 09/29/18 05:00 Labs: Laboratory Last Values WBC 1.2 K/mm3 (4.5-11.0) L* 09/29/18 05:00 RBC 3.13 M/mm3 (3.65-5.03) L 09/29/18 05:00 Hgb 8.6 gm/dl (11.8-15.2) L 09/29/18 05:00 Hct 27.3 % (35.5-45.6) L 09/29/18 05:00 MCV 87 fl (84-94) 09/29/18 05:00 MCH 28 pg (28-32) 09/29/18 05:00 MCHC 32 % (32-34) 09/29/18 05:00 RDW 14.7 % (13.2-15.2) 09/29/18 05:00 Plt Count 137 K/mm3 (140-440) L 09/29/18 05:00 [place] % (Auto) Art Psychotherapist Or Therapist 09/29/18 05:00 Baso % (Auto) Art Psychotherapist Or Therapist 09/29/18 05:00 Add Manual Diff Complete 09/29/18 05:00 Total Counted 25 09/29/18 05:00 Seg Neutrophils % Art Psychotherapist Or Therapist 09/29/18 05:00 Seg Neuts % (Manual) 40.0 % (40.0-70.0) 09/29/18 05:00 Band Neutrophils % 4.0 % 09/29/18 05:00 Lymphocytes % (Manual) 28.0 % (13.4-35.0) 09/29/18 05:00 Reactive Lymphs % (Man) 0 % 09/29/18 05:00 Monocytes % (Manual) 16.0 % (0.0-7.3) H 09/29/18 05:00 Eosinophils % (Manual) 0 % (0.0-4.3) 09/29/18 05:00 Basophils % (Manual) 0 % (0.0-1.8) 09/29/18 05:00 Metamyelocytes % 8.0 % 09/29/18 05:00 Myelocytes % 0 % 09/29/18 05:00 Promyelocytes % 4.0 % 09/29/18 05:00 Blast Cells % 0 % 09/29/18 05:00 Nucleated RBC % 4.0 % (0.0-0.9) H 09/29/18 05:00 Seg Neutrophils # Man 0.5 K/mm3 (1.8-7.7) L 09/29/18 05:00 Band Neutrophils # 0.0 K/mm3 09/29/18 05:00 Abs Lymphs (Manual) 309 cells/uL (850-3900) L 09/13/18 12:29 Lymphocytes # (Manual) 0.3 K/mm3 (1.2-5.4) L 09/29/18 05:00 Abs React Lymphs (Man) 0.0 K/mm3 09/29/18 05:00 Monocytes # (Manual) 0.2 K/mm3 (0.0-0.8) 09/29/18 05:00 Eosinophils # (Manual) 0.0 K/mm3 (0.0-0.4) 09/29/18 05:00 Basophils # (Manual) 0.0 K/mm3 (0.0-0.1) 09/29/18 05:00 Metamyelocytes # 0.1 K/mm3 09/29/18 05:00 Myelocytes # 0.0 K/mm3 09/29/18 05:00 Promyelocytes # 0.0 K/mm3 09/29/18 05:00 Blast Cells # 0.0 K/mm3 09/29/18 05:00 WBC Morphology Not Reportable 09/29/18 05:00 Hypersegmented Neuts Not Reportable 09/29/18 05:00 Hyposegmented Neuts Not Reportable 09/29/18 05:00 Hypogranular Neuts Not Reportable 09/29/18 05:00 Smudge Cells Not Reportable 09/29/18 05:00 Toxic Granulation Not Reportable 09/29/18 05:00 Toxic Vacuolation Not Reportable 09/29/18 05:00 Dohle Bodies Not Reportable 09/29/18 05:00 Pelger-Huet Anomaly Not Reportable 09/29/18 05:00 Giovanna Rods Not Reportable 09/29/18 05:00 Platelet Estimate Appears normal 09/29/18 05:00 Clumped Platelets Not Reportable 09/29/18 05:00 Plt Clumps, EDTA Not Reportable 09/29/18 05:00 Large Platelets Few 09/29/18 05:00 Giant Platelets Not Reportable 09/29/18 05:00 Platelet Satelliting Not Reportable 09/29/18 05:00 Plt Morphology Comment Not Reportable 09/29/18 05:00 RBC Morphology Not Reportable 09/29/18 05:00 Dimorphic RBCs Not Reportable 09/29/18 05:00 Polychromasia Not Reportable 09/29/18 05:00 Hypochromasia 1+ 09/29/18 05:00 Poikilocytosis Not Reportable 09/29/18 05:00 Anisocytosis 1+ 09/29/18 05:00 Microcytosis Not Reportable 09/29/18 05:00 Macrocytosis Rare 09/29/18 05:00 Spherocytes Not Reportable 09/29/18 05:00 Pappenheimer Bodies Not Reportable 09/29/18 05:00 Sickle Cells Not Reportable 09/29/18 05:00 Target Cells Few 09/29/18 05:00 Tear Drop Cells Not Reportable 09/29/18 05:00 Ovalocytes 2+ 09/29/18 05:00 Stomatocytes 1+ 09/29/18 05:00 Helmet Cells Not Reportable 09/29/18 05:00 [place] Bodies Not Reportable 09/29/18 05:00 [place] Rings Not Reportable 09/29/18 05:00 Dioni Cells Not Reportable 09/29/18 05:00 Bite Cells Not Reportable 09/29/18 05:00 Crenated Cell Not Reportable 09/29/18 05:00 Elliptocytes Few 09/29/18 05:00 Acanthocytes (Spur) Not Reportable 09/29/18 05:00 Rouleaux Not Reportable 09/29/18 05:00 Hemoglobin C Crystals Not Reportable 09/29/18 05:00 Schistocytes Not Reportable 09/29/18 05:00 Malaria parasites Not Reportable 09/29/18 05:00 Kieran Bodies Not Reportable 09/29/18 05:00 Hem Pathologist Commnt No 09/29/18 05:00 PT 19.9 Sec. (12.2-14.9) H 09/21/18 15:00 INR 1.65 (0.87-1.13) H 09/21/18 15:00 APTT 40.9 Sec. (24.2-36.6) H 09/21/18 15:00 Heparin Anti-Xa Level 0.48 U.I./ml (0.3-0.7) 09/28/18 21:30 POC ABG pH 7.300 (7.35-7.45) L 09/28/18 10:43 POC ABG pCO2 53.9 (35-45) H 09/28/18 10:43 POC ABG pO2 97 (80-105) 09/28/18 10:43 POC ABG HCO3 26.5 09/28/18 10:43 POC ABG Total CO2 28 09/28/18 10:43 POC ABG O2 Sat 97 09/28/18 10:43 POC ABG Base Excess 0 09/28/18 10:43 FiO2 25 % 09/28/18 10:43 Sodium 147 mmol/L (137-145) H 09/29/18 05:00 Potassium 3.4 mmol/L (3.6-5.0) L 09/29/18 05:00 Chloride 114.5 mmol/L (98-107) H 09/29/18 05:00 Carbon Dioxide 26 mmol/L (22-30) 09/29/18 05:00 Anion Gap 10 mmol/L 09/29/18 05:00 BUN 19 mg/dL (9-20) 09/29/18 05:00 Creatinine 1.1 mg/dL (0.8-1.5) 09/29/18 05:00 Estimated GFR > 60 ml/min 09/29/18 05:00 BUN/Creatinine Ratio 17 % 09/29/18 05:00 Glucose 97 mg/dL (75-100) 09/29/18 05:00 POC Glucose 109 (70-105) H 09/29/18 06:07 Lactic Acid 0.90 mmol/L (0.7-2.0) 09/11/18 20:17 Calcium 7.7 mg/dL (8.4-10.2) L 09/29/18 05:00 Phosphorus 3.10 mg/dL (2.5-4.5) D 09/27/18 04:11 Magnesium 1.80 mg/dL (1.7-2.3) 09/26/18 06:15 Total Bilirubin < 0.20 mg/dL (0.1-1.2) 09/29/18 05:00 Direct Bilirubin < 0.2 mg/dL (0-0.2) 09/13/18 07:31 AST 69 units/L (5-40) H 09/29/18 05:00 ALT 110 units/L (7-56) H 09/29/18 05:00 Alkaline Phosphatase 60 units/L (35-129) 09/29/18 05:00 Ammonia 47.0 umol/L (25-60) 09/16/18 11:41 Total Creatine Kinase 685 units/L (55-170) H 09/21/18 04:25 CK-MB (CK-2) 3.5 ng/mL (0.0-4.0) 09/21/18 04:25 CK-MB (CK-2) Rel Index 0.5 (0-4) 09/21/18 04:25 NT-Pro-B Natriuret Pep 145.9 pg/mL (0-450) 09/18/18 16:07 Total Protein 5.2 g/dL (6.3-8.2) L 09/29/18 05:00 Albumin 1.9 g/dL (3.9-5) L 09/29/18 05:00 Albumin/Globulin Ratio 0.6 % 09/29/18 05:00 Vitamin B12 934.5 pg/mL (211-911) H 09/16/18 11:41 TSH 5.190 mlU/mL (0.270-4.200) H 09/18/18 12:46 Free T4 0.75 ng/dL (0.76-1.46) L 09/18/18 12:46 Urine Color [place] (Yellow) 09/11/18 Unknown Urine Turbidity Clear (Clear) 09/11/18 Unknown Urine pH 5.0 (5.0-7.0) 09/11/18 Unknown Ur Specific [place] 1.016 (1.003-1.030) 09/11/18 Unknown Urine Protein <15 mg/dl mg/dL (Negative) 09/11/18 Unknown Urine Glucose (UA) Neg mg/dL (Negative) 09/11/18 Unknown Urine Ketones Neg mg/dL (Negative) 09/11/18 Unknown Urine Blood Sm (Negative) 09/11/18 Unknown Urine Nitrite Neg (Negative) 09/11/18 Unknown Urine Bilirubin Neg (Negative) 09/11/18 Unknown Urine Urobilinogen < 2.0 mg/dL (<2.0) 09/11/18 Unknown Ur Leukocyte Esterase Neg (Negative) 09/11/18 Unknown Urine WBC (Auto) 1.0 /HPF (0.0-6.0) 09/11/18 Unknown Urine RBC (Auto) 3.0 /HPF (0.0-6.0) 09/11/18 Unknown Urine Mucus Few /HPF 09/11/18 Unknown CSF Appearance Clear 09/19/18 15:00 CSF Color Colorless 09/19/18 15:00 CSF WBC 4 /mm3 (1-10) 09/19/18 15:00 CSF RBC 583 /mm3 (0-0) 09/19/18 15:00 CSF Seg Neutrophils 21.4 % (0-6) 09/19/18 15:00 CSF Lymphocytes % 71.4 % (40-80) 09/19/18 15:00 CSF Reactive Lymphs 0 % 09/19/18 15:00 CSF Monocytes % 7.1 % (15-45) 09/19/18 15:00 CSF Eosinophils % 0 % 09/19/18 15:00 CSF Basophils 0 % 09/19/18 15:00 CSF Pathologist Review C 09/19/18 15:00 CSF Glucose 32 mg/dL 09/19/18 15:00 CSF Total Protein 123 mg/dL 09/19/18 15:00 CSF VDRL Reactive 1:4 (Nonreactive) H 09/19/18 15:00 Vancomycin Trough 14.3 ug/mL (5.0-20.0) 09/25/18 14:45 Urine Opiates Screen Presumptive negative 09/17/18 15:52 Urine Methadone Screen Presumptive negative 09/17/18 15:52 Ur Barbiturates Screen Presumptive negative 09/17/18 15:52 Ur Phencyclidine Scrn Presumptive negative 09/17/18 15:52 Ur Amphetamines Screen Presumptive negative 09/17/18 15:52 U Benzodiazepines Scrn Presumptive negative 09/17/18 15:52 Urine Cocaine Screen Presumptive negative 09/17/18 15:52 U Marijuana (THC) Screen Presumptive negative 09/17/18 15:52 Drugs of Abuse Note Disclamer 09/17/18 15:52 Lymph Enumerat CD4/CD8 0.01 (0.86-5.00) L 09/13/18 12:29 % CD3 Cells 71 % (57-85) 09/13/18 12:29 Absolute CD3 Count 220 cells/uL (840-3060) L 09/13/18 12:29 % CD4 Cells 1 % (30-61) L 09/13/18 12:29 Absolute CD4 Count 4 cells/uL (490-1740) L 09/13/18 12:29 % CD8 Cells 70 % (12-42) H 09/13/18 12:29 Absolute CD8 Count 216 cells/uL (180-1170) 09/13/18 12:29 % CD19 Cells 17 % (6-29) 09/13/18 12:29 Absolute CD19 Count 54 cells/uL (110-660) L 09/13/18 12:29 RPR Titer 1:16 09/13/18 12:29 RPR Reactive (Nonreactive) 09/13/18 12:29 T.pallidum Ab (FTA-ABS) Reactive (Nonreactive) H 09/14/18 16:34 C. 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 See scanned result 09/26/18 06:15 Hepatitis A IgM Ab Non-reactive (NonReactive) 09/13/18 12:29 Hep Bs Antigen Non-reactive (Negative) 09/13/18 12:29 Hep B Core IgM Ab Non-reactive (NonReactive) 09/13/18 12:29 Hepatitis C Antibody Non-reactive (NonReactive) 09/13/18 12:29 HIV-1 Antibody See scanned result 09/11/18 19:14 HIV-1 RNA PCR copies/ml [id number] Copies/mL H 09/13/18 12:29 HIV-1 RNA (PCR) log 4.71 Log cps/mL H 09/13/18 12:29 HIV-2 Ab (Immunoblot) See scanned result 09/11/18 19:14 HIV 1&2 Antibody Rapid Reactive (Non React) 09/11/18 19:14 HIV P24 Antigen Non react (Non React) 09/11/18 19:14 Influenza A (Rapid) Negative (Negative) 09/13/18 16:05 Influenza A (RT-PCR) Negative (Negative) 09/13/18 16:05 Influenza B (Rapid) Negative (Negative) 09/13/18 16:05 Influenza B (RT-PCR) Negative (Negative) 09/13/18 16:05 Toxoplasma IgG Ab <7.20 IU/mL (<7.20) 09/16/18 12:09 Miscellaneous Test see below 09/21/18 03:55 Nutrition/Malnutrition Assess - Dietary Evaluation Nutrition/Malnutrition Findings: Nutrition Notes Start: 09/12/18 17:45 Freq: Status: Active Protocol: Document 09/28/18 10:40 CT (Rec: 09/28/18 11:48 CT [id number]) Co-Sign 09/28/18 10:40 NHALL Nutrition Notes Initial or Follow up Brief Note Current Diet TF- Vital High Protein at 70ml /hr Subjective/Other Information Pt continues to be intubated. TF running at goal (70ml). Nutrition Intervention Follow-Up By: 09/30/18 Additional Comments F/U: reassesment
[2018-09-29] MEDS: SODIUM CHLORIDE FLUSH SYRINGE 10 ML IV SCH (09:32)
[2018-09-29] MEDS: PEPCID PO SCH ×2 (09:32→22:29)
[2018-09-29] MEDS: MEPRON PO SCH ×2 (09:36→22:32)
[2018-09-29] MEDS: CORDARONE PO SCH ×2 (09:36→22:29)
[2018-09-29] MEDS: DIFLUCAN 200 ML IV SCH (09:37)
[2018-09-29] MEDS: ROCEPHIN/NS 2 GM/100 ML 2 GM/100 ML BAG IV SCH ×2 (09:37→22:31)
[2018-09-29] MEDS: REGLAN IV SCH (09:38)
--- NOTE | 2018-09-29 10:50 | Progress Note ---
Assessment and Plan Cultures: 09/11/2018 blood culture: no growth 09/13/2018 serum cryptococcus ag neg 09/14/2018 CSF cryptococcus ag neg 09/14/2018 stool Nona 09/15/2018 stool +Giardia ag 09/19/2018 CSF cryptococcus ag neg 09/21/2018 tracheal aspirate culture: Nona albicans 09/23/2018 blood culture: No growth 09/23/2018 Fungal blood culture: no growth thus far A/P: 33 y/o male with no PMH; admitted on 09/11/2018 due to 4 days-AMS/behavioral changes, nausea, vomiting, diarrhea, weight loss and cough: 1) Low grade fevers: shock resolved, etiology unclear. Cultures have negative thus far, remains on ceftriaxone, flagyl for now. 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 Monitor for leucopenia. F/U CMV DNA PCR, would expect no significant change in the log value in the first week. Transaminitis could be from CMV v/s shock liver, continues to improve 3) Acute respiratory failure: still on the vent, mainly due to mental status issues. PJP DFA negative. 4) Acute encephalopathy: possibly from neurosyphilis v/s CMV encephalitis v/s metabolic etiology. Of note, MRI did not show ventriculitis. Blood CMV DNA PCR = 1,058,978. CSF YAYO virus DNA PCR neg. Toxo IgG negative. Hypernatremia 5) Neurosyphilis: CSF VDRL positive, was on Penicillin G, given decline in clinical condition, and to avoid double beta-lactam abx and increased seizure risk, continue high dose IV Ceftriaxone which does have activity against Treponema pallidum. 6) Diarrhea: likely due to Giardiasis as Giardia antigen positive in stool, in immunocompromised patient, on flagyl. Continues to be present, so continue Flagyl. 7) Oral candidiasis: better, on fluconazole. 8) A.fib with RVR: cardiology following. On Amiodarone. 9) HIV/AIDS: newly diagnosed. Risk factor is MSM behavior. CD4=4. VL=50,700. HIV Genotype showed AZT resistance, suggestive of possible prior treatment and perhaps resistant HIV. 10) Neutropenia/thrombocytopenia: possibly from HIV/CMV myelosuppression +/- sepsis. Can also get worse from ganciclovir. r/o disseminated MAC, thus far cultures negative. 11) MAL: resolved. creatinine stable and improved. Recs: - continue IV Ganciclovir 5 mg/kg q12 hrs, will need to continue till CMV PCR is down to <200. - continue IV Ceftriaxone 2 gm q12 hrs - continue IV Flagyl for diarrhea from Giardiasis, complete 14-21 days - continue atovaquone and azithromycin prophylaxis - continue fluconazole D16, will plan for 21 days of therapy to also cover for esophagitis - f/u CMV DNA PCR results - monitor daily CBC, BMP Will follow. Please call with questions. Maurizio Lopez MD [facility] C: [phone] O: [phone] F: [phone] Subjective Date of service: 09/29/18 Principal diagnosis: Severe sepsis; Ac hypoxemic Resp failure; [place]. Pneumonia; Ac encephalopathy Interval history: Low grade temperatures continue. Diarrhea +. Remains on the vent, mental status horn he is awake, but doesn't obey commands, opens eyes. Objective - Exam Narrative Exam: Physical Exam: Constitutional: intubated, on the event, can be awakened but doesn't consistently follow commands Head, Ears, Nose: Normocephalic, atraumatic. Eyes: Conjunctivae/corneas clear. No icterus. No ptosis. Neck: Supple, no meningeal signs Oral: intubated Cardiovascular: S1, S2 normal. Respiratory: Good air entry, clear to auscultation bilaterally GI: Soft, bowel sounds normal. No peritoneal signs, Rectal tube + with diarrhea Musculoskeletal: No pedal edema, no cyanosis. Skin: No rash or abscess Hem/Lymphatic: No palpable cervical or supraclavicular nodes. No lymphangitis Psych: no agitation Neurological: intubated, on the vent, opens eyes, but doesn't consistently follow commands - Constitutional Vitals: Vital Signs Temp Pulse Resp BP Pulse Ox 100.9 F H 99 H 17 127/66 100 09/29/18 08:00 09/29/18 10:30 09/29/18 10:30 09/29/18 10:30 09/29/18 10:30 Temperature -Last 24 Hours Temperature 100.9 F Temperature 100.6 F Temperature 100.0 F Temperature 99.7 F Temperature 99.7 F Temperature 99.1 F - Labs CBC & Chem 7: 09/29/18 05:00 09/29/18 05:00 Labs: Abnormal lab results 09/28/18 09/29/18 09/29/18 Range/Units 10:43 05:00 05:00 WBC 1.2 L* (4.5-11.0) K/mm3 RBC 3.13 L (3.65-5.03) M/mm3 Hgb 8.6 L (11.8-15.2) gm/dl Hct 27.3 L (35.5-45.6) % Plt Count 137 L (140-440) K/mm3 Monocytes % (Manual) 16.0 H (0.0-7.3) % Nucleated RBC % 4.0 H (0.0-0.9) % Seg Neutrophils # Man 0.5 L (1.8-7.7) K/mm3 Lymphocytes # (Manual) 0.3 L (1.2-5.4) K/mm3 POC ABG pH 7.300 L (7.35-7.45) POC ABG pCO2 53.9 H (35-45) Sodium 147 H (137-145) mmol/L Potassium 3.4 L (3.6-5.0) mmol/L Chloride 114.5 H (98-107) mmol/L POC Glucose (70-105) Calcium 7.7 L (8.4-10.2) mg/dL AST 69 H (5-40) units/L ALT 110 H (7-56) units/L Total Protein 5.2 L (6.3-8.2) g/dL Albumin 1.9 L (3.9-5) g/dL 09/29/18 Range/Units 06:07 WBC (4.5-11.0) K/mm3 RBC (3.65-5.03) M/mm3 Hgb (11.8-15.2) gm/dl Hct (35.5-45.6) % Plt Count (140-440) K/mm3 Monocytes % (Manual) (0.0-7.3) % Nucleated RBC % (0.0-0.9) % Seg Neutrophils # Man (1.8-7.7) K/mm3 Lymphocytes # (Manual) (1.2-5.4) K/mm3 POC ABG pH (7.35-7.45) POC ABG pCO2 (35-45) Sodium (137-145) mmol/L Potassium (3.6-5.0) mmol/L Chloride (98-107) mmol/L POC Glucose 109 H (70-105) Calcium (8.4-10.2) mg/dL AST (5-40) units/L ALT (7-56) units/L Total Protein (6.3-8.2) g/dL Albumin (3.9-5) g/dL - Imaging and cardiology Chest x-ray: report reviewed, image reviewed (ET tube +, no pneumonia seen.)
--- NOTE | 2018-09-29 14:57 | Progress Note ---
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 He did not use condom consistently. - CD4=4 - VL=50,700 Elevated LFTs: resolved Neutropenia/thrombocytopenia -VAP bundle addressed -Lung protective strategies -Antimicrobials per ID -give a dose of furosemide and monitor response, hemodynamics, renal function and electrolyte profile - continue supplemental oxygen to keep sats > 90% - continue bronchodilators with pulmonary - continue daily SBT's, at this time mental status precludes liberation from MVS - monitor for drug-drug interactions - continue enteral nutrition as tolerated - PT/OT/ROM exercises as tolerated - mobility protocol for pressure ulcer prevention - continue GI & VTE prophylaxis -stop Reglan in view of ongoing diarrhea. Tolerating enteric feedings with no residuals. -Re-culture if any further fevers -Replete electrolytes as indicated - continue other care per attending / other consultants The high probability of a clinically significant, sudden or life threatening deterioration of the [cardiac, respiratory and neurologic] system(s) required my full and direct attention, intervention and personal management. The aggregate critical care time was [40] minutes. This time is in addition to time spent performing reported procedures but includes the following: [x] Data Review and interpretation [x] Patient assessment and monitoring of vital signs [x] Documentation Subjective Date of service: 09/29/18 Principal diagnosis: Severe sepsis; Ac hypoxemic Resp failure; [place]. Pneumonia; Ac encephalopathy Interval history: 33 y/o male with no PMH; admitted on 09/11/2018 due to 4 days-AMS/behavioral changes, nausea, voimiting, diarrhea, weight loss and cough: Patient is seen today for: Severe sepsis (present on admission with fever, tachycardia, hypotension and elevated lactate); Acute hypoxemic Respiratory failure; Bilateral pneumonia; Acute encephalopathy (Toxic / Metabolic); Atrial Fibrillation with RVR; HIV-AIDS Seen and examined at bedside; 24hour events reviewed; nursing and respiratory care staff consulted; no adverse overnight events reported to me; resting peacefully in bed; generalized edema with ongoing diarrhea. Fevers today. Oral secretions, awake but not obeying commands. Remains on MVS, PSV 12/6 with tidal volumes of about 350ml, not heather nay distress Objective Vital Signs - 12hr 09/29/18 09/29/18 09/29/18 03:00 03:30 04:00 Temperature 100.6 F H Pulse Rate 93 H 82 110 H Pulse Rate [ 91 H From Monitor] Pulse Rate [ Throughout] Respiratory 15 21 16 Rate Respiratory Rate [ Throughout] Blood Pressure 126/51 134/52 106/39 O2 Sat by Pulse 100 99 99 Oximetry 09/29/18 09/29/18 09/29/18 04:13 04:30 04:35 Temperature Pulse Rate 93 H 96 H 109 H Pulse Rate [ From Monitor] Pulse Rate [ 120 H Throughout] Respiratory 21 Rate Respiratory 18 Rate [ Throughout] Blood Pressure 126/51 118/51 O2 Sat by Pulse 100 100 Oximetry 09/29/18 09/29/18 09/29/18 04:44 05:00 05:30 Temperature Pulse Rate 100 H 106 H Pulse Rate [ From Monitor] Pulse Rate [ 125 H Throughout] Respiratory 14 16 Rate Respiratory 12 Rate [ Throughout] Blood Pressure 128/55 131/59 O2 Sat by Pulse 100 99 Oximetry 09/29/18 09/29/18 09/29/18 06:00 06:30 07:00 Temperature Pulse Rate 112 H 112 H 101 H Pulse Rate [ From Monitor] Pulse Rate [ Throughout] Respiratory 23 22 18 Rate Respiratory Rate [ Throughout] Blood Pressure 110/43 124/40 127/50 O2 Sat by Pulse 100 99 99 Oximetry 09/29/18 09/29/18 09/29/18 07:30 08:00 08:17 Temperature 100.9 F H Pulse Rate 113 H 100 H Pulse Rate [ 113 H From Monitor] Pulse Rate [ 109 H Throughout] Respiratory 17 18 Rate Respiratory 16 Rate [ Throughout] Blood Pressure 112/56 108/44 O2 Sat by Pulse 99 99 Oximetry 09/29/18 09/29/18 09/29/18 08:30 08:33 09:00 Temperature Pulse Rate 118 H 102 H Pulse Rate [ From Monitor] Pulse Rate [ 120 H Throughout] Respiratory 12 11 L Rate Respiratory 17 Rate [ Throughout] Blood Pressure 124/72 123/69 O2 Sat by Pulse 100 100 Oximetry 09/29/18 09/29/18 09/29/18 09:30 10:00 10:01 Temperature Pulse Rate 111 H 112 H 106 H Pulse Rate [ From Monitor] Pulse Rate [ Throughout] Respiratory 25 H 17 Rate Respiratory Rate [ Throughout] Blood Pressure 119/60 133/68 133/68 O2 Sat by Pulse 100 100 Oximetry 09/29/18 09/29/18 09/29/18 10:30 11:00 11:30 Temperature Pulse Rate 99 H 100 H 91 H Pulse Rate [ From Monitor] Pulse Rate [ Throughout] Respiratory 17 25 H 16 Rate Respiratory Rate [ Throughout] Blood Pressure 127/66 110/58 125/67 O2 Sat by Pulse 100 100 100 Oximetry 09/29/18 09/29/18 09/29/18 12:00 12:30 12:50 Temperature 100.3 F H Pulse Rate 98 H 88 99 H Pulse Rate [ From Monitor] Pulse Rate [ Throughout] Respiratory 16 11 L 15 Rate Respiratory Rate [ Throughout] Blood Pressure 125/67 128/60 127/66 O2 Sat by Pulse 100 100 100 Oximetry 09/29/18 09/29/18 09/29/18 13:00 13:30 14:00 Temperature Pulse Rate 100 H 93 H 95 H Pulse Rate [ From Monitor] Pulse Rate [ Throughout] Respiratory 20 18 17 Rate Respiratory Rate [ Throughout] Blood Pressure 115/45 122/66 111/59 O2 Sat by Pulse 100 100 100 Oximetry 09/29/18 09/29/18 14:30 14:43 Temperature Pulse Rate 84 Pulse Rate [ From Monitor] Pulse Rate [ 94 H Throughout] Respiratory 18 Rate Respiratory 19 Rate [ Throughout] Blood Pressure 127/71 O2 Sat by Pulse 100 Oximetry Constitutional: no acute distress, alert, other (orally intubated ETT at 23cm) Eyes: non-icteric, other ENT: oropharynx moist, other (ETT 24 cm NIKA) Neck: supple, no lymphadenopathy Effort: mildly labored Ascultation: Bilateral: rales, rhonchi Percussion: Bilateral: not dull Cardiovascular: regular rate and rhythm, other (S1,S2, no murmurs, gallps or rubs) Gastrointestinal: normoactive bowel sounds, soft, non-tender, non-distended Integumentary: rash Extremities: no cyanosis, pulses normal, no ischemia or petechiae, edema Neurologic: pupils equal and round, motor strength normal and (weak though) Psychiatric: other (unable to assess) CBC and BMP: 09/29/18 05:00 09/29/18 05:00 ABG, PT/INR, D-dimer: ABG POC ABG pH 7.370 (7.35-7.45) 09/29/18 13:22 POC ABG pCO2 46.9 (35-45) H 09/29/18 13:22 POC ABG pO2 86 (80-105) 09/29/18 13:22 POC ABG HCO3 27.1 09/29/18 13:22 POC ABG Total CO2 29 09/29/18 13:22 POC ABG O2 Sat 96 09/29/18 13:22 PT/INR, D-dimer PT 19.9 Sec. (12.2-14.9) H 09/21/18 15:00 INR 1.65 (0.87-1.13) H 09/21/18 15:00 Abnormal lab findings: Abnormal Labs 09/11/18 09/11/18 09/11/18 18:00 18:00 18:00 WBC 1.9 L* RBC Hgb Hct Plt Count 130 L Seg Neuts % (Manual) Lymphocytes % (Manual) Monocytes % (Manual) 16.0 H Eosinophils % (Manual) Basophils % (Manual) Nucleated RBC % Seg Neutrophils # Man 0.9 L Abs Lymphs (Manual) Lymphocytes # (Manual) 0.5 L PT INR APTT Heparin Anti-Xa Level POC ABG pH POC ABG pCO2 POC ABG pO2 Sodium 131 L Potassium Chloride Carbon Dioxide 17 L BUN 21 H Creatinine Glucose 126 H POC Glucose Lactic Acid 2.60 H* Calcium 8.1 L Phosphorus AST 123 H ALT 115 H Total Creatine Kinase Total Protein Albumin 3.0 L Vitamin B12 TSH Free T4 CSF VDRL Lymph Enumerat CD4/CD8 Absolute CD3 Count % CD4 Cells Absolute CD4 Count % CD8 Cells Absolute CD19 Count T.pallidum Ab (FTA-ABS) HIV-1 RNA PCR copies/ml HIV-1 RNA (PCR) log Miscellaneous Test 09/11/18 09/13/18 09/13/18 19:01 04:28 07:31 WBC 2.0 L RBC Hgb Hct Plt Count 116 L Seg Neuts % (Manual) Lymphocytes % (Manual) Monocytes % (Manual) 8.0 H Eosinophils % (Manual) Basophils % (Manual) Nucleated RBC % Seg Neutrophils # Man 1.0 L Abs Lymphs (Manual) Lymphocytes # (Manual) 0.5 L PT INR APTT Heparin Anti-Xa Level POC ABG pH POC ABG pCO2 POC ABG pO2 Sodium Potassium Chloride 110.4 H Carbon Dioxide 19 L BUN Creatinine Glucose POC Glucose Lactic Acid 3.70 H* Calcium 7.9 L Phosphorus AST ALT Total Creatine Kinase Total Protein Albumin Vitamin B12 TSH Free T4 CSF VDRL Lymph Enumerat CD4/CD8 Absolute CD3 Count % CD4 Cells Absolute CD4 Count % CD8 Cells Absolute CD19 Count T.pallidum Ab (FTA-ABS) HIV-1 RNA PCR copies/ml HIV-1 RNA (PCR) log Miscellaneous Test 09/13/18 09/13/18 09/13/18 07:31 12:29 12:29 WBC RBC Hgb Hct Plt Count Seg Neuts % (Manual) Lymphocytes % (Manual) Monocytes % (Manual) Eosinophils % (Manual) Basophils % (Manual) Nucleated RBC % Seg Neutrophils # Man Abs Lymphs (Manual) 309 L Lymphocytes # (Manual) PT INR APTT Heparin Anti-Xa Level POC ABG pH POC ABG pCO2 POC ABG pO2 Sodium Potassium Chloride Carbon Dioxide BUN Creatinine Glucose POC Glucose Lactic Acid Calcium Phosphorus AST 70 H ALT 68 H Total Creatine Kinase Total Protein Albumin 2.5 L Vitamin B12 TSH Free T4 CSF VDRL Lymph Enumerat CD4/CD8 0.01 L Absolute CD3 Count 220 L % CD4 Cells 1 L Absolute CD4 Count 4 L % CD8 Cells 70 H Absolute CD19 Count 54 L T.pallidum Ab (FTA-ABS) HIV-1 RNA PCR copies/ml 65768 H HIV-1 RNA (PCR) log 4.71 H Miscellaneous Test 09/13/18 09/14/18 09/14/18 12:29 07:17 16:34 WBC RBC Hgb Hct Plt Count Seg Neuts % (Manual) Lymphocytes % (Manual) Monocytes % (Manual) Eosinophils % (Manual) Basophils % (Manual) Nucleated RBC % Seg Neutrophils # Man Abs Lymphs (Manual) Lymphocytes # (Manual) PT INR APTT Heparin Anti-Xa Level POC ABG pH POC ABG pCO2 POC ABG pO2 Sodium Potassium 3.4 L Chloride Carbon Dioxide 18 L BUN Creatinine Glucose 104 H POC Glucose Lactic Acid Calcium 7.6 L Phosphorus AST 49 H ALT Total Creatine Kinase Total Protein Albumin 2.5 L Vitamin B12 TSH Free T4 CSF VDRL Lymph Enumerat CD4/CD8 Absolute CD3 Count % CD4 Cells Absolute CD4 Count % CD8 Cells Absolute CD19 Count T.pallidum Ab (FTA-ABS) Reactive H HIV-1 RNA PCR copies/ml HIV-1 RNA (PCR) log Miscellaneous Test Flexitest 1 H 09/15/18 09/15/18 09/15/18 05:05 05:05 Unknown WBC 1.6 L* RBC Hgb 10.4 L Hct 31.1 L D Plt Count 113 L Seg Neuts % (Manual) Lymphocytes % (Manual) Monocytes % (Manual) Eosinophils % (Manual) Basophils % (Manual) Nucleated RBC % Seg Neutrophils # Man Abs Lymphs (Manual) Lymphocytes # (Manual) PT INR APTT Heparin Anti-Xa Level POC ABG pH POC ABG pCO2 POC ABG pO2 Sodium Potassium Chloride 107.9 H Carbon Dioxide 18 L BUN 6 L Creatinine Glucose POC Glucose Lactic Acid Calcium 7.4 L Phosphorus AST ALT Total Creatine Kinase Total Protein Albumin Vitamin B12 TSH Free T4 CSF VDRL Reactive 1:8 H Lymph Enumerat CD4/CD8 Absolute CD3 Count % CD4 Cells Absolute CD4 Count % CD8 Cells Absolute CD19 Count T.pallidum Ab (FTA-ABS) HIV-1 RNA PCR copies/ml HIV-1 RNA (PCR) log Miscellaneous Test 09/16/18 09/16/18 09/16/18 06:55 11:41 11:41 WBC 2.8 L RBC Hgb 10.9 L Hct 33.5 L Plt Count 135 L Seg Neuts % (Manual) Lymphocytes % (Manual) Monocytes % (Manual) Eosinophils % (Manual) Basophils % (Manual) Nucleated RBC % Seg Neutrophils # Man Abs Lymphs (Manual) Lymphocytes # (Manual) PT INR APTT Heparin Anti-Xa Level POC ABG pH POC ABG pCO2 POC ABG pO2 Sodium Potassium Chloride Carbon Dioxide BUN Creatinine Glucose POC Glucose Lactic Acid Calcium Phosphorus AST ALT Total Creatine Kinase Total Protein Albumin Vitamin B12 TSH 4.210 H Free T4 0.72 L CSF VDRL Lymph Enumerat CD4/CD8 Absolute CD3 Count % CD4 Cells Absolute CD4 Count % CD8 Cells Absolute CD19 Count T.pallidum Ab (FTA-ABS) HIV-1 RNA PCR copies/ml HIV-1 RNA (PCR) log Miscellaneous Test 09/16/18 09/16/18 09/17/18 11:41 15:43 05:13 WBC 2.0 L RBC Hgb 10.9 L Hct 32.7 L Plt Count Seg Neuts % (Manual) Lymphocytes % (Manual) Monocytes % (Manual) Eosinophils % (Manual) Basophils % (Manual) Nucleated RBC % Seg Neutrophils # Man Abs Lymphs (Manual) Lymphocytes # (Manual) PT INR APTT Heparin Anti-Xa Level POC ABG pH POC ABG pCO2 29.3 L POC ABG pO2 70 L Sodium Potassium Chloride Carbon Dioxide BUN Creatinine Glucose POC Glucose Lactic Acid Calcium Phosphorus AST ALT Total Creatine Kinase Total Protein Albumin Vitamin B12 934.5 H TSH Free T4 CSF VDRL Lymph Enumerat CD4/CD8 Absolute CD3 Count % CD4 Cells Absolute CD4 Count % CD8 Cells Absolute CD19 Count T.pallidum Ab (FTA-ABS) HIV-1 RNA PCR copies/ml HIV-1 RNA (PCR) log Miscellaneous Test 09/17/18 09/17/18 09/18/18 05:13 21:57 12:46 WBC RBC Hgb Hct Plt Count Seg Neuts % (Manual) Lymphocytes % (Manual) Monocytes % (Manual) Eosinophils % (Manual) Basophils % (Manual) Nucleated RBC % Seg Neutrophils # Man Abs Lymphs (Manual) Lymphocytes # (Manual) PT INR APTT Heparin Anti-Xa Level POC ABG pH POC ABG pCO2 POC ABG pO2 Sodium Potassium Chloride 107.2 H Carbon Dioxide 21 L BUN 3 L Creatinine 0.7 L Glucose POC Glucose 108 H Lactic Acid Calcium 7.9 L Phosphorus AST ALT Total Creatine Kinase Total Protein 6.1 L Albumin 2.6 L Vitamin B12 TSH Free T4 0.75 L CSF VDRL Lymph Enumerat CD4/CD8 Absolute CD3 Count % CD4 Cells Absolute CD4 Count % CD8 Cells Absolute CD19 Count T.pallidum Ab (FTA-ABS) HIV-1 RNA PCR copies/ml HIV-1 RNA (PCR) log Miscellaneous Test 09/18/18 09/19/18 09/19/18 12:46 04:57 04:57 WBC 2.1 L RBC Hgb 11.4 L Hct 34.2 L Plt Count Seg Neuts % (Manual) Lymphocytes % (Manual) Monocytes % (Manual) Eosinophils % (Manual) Basophils % (Manual) Nucleated RBC % Seg Neutrophils # Man Abs Lymphs (Manual) Lymphocytes # (Manual) PT INR APTT Heparin Anti-Xa Level POC ABG pH POC ABG pCO2 POC ABG pO2 Sodium Potassium Chloride Carbon Dioxide 19 L BUN 6 L Creatinine Glucose POC Glucose Lactic Acid Calcium 7.9 L Phosphorus AST ALT Total Creatine Kinase Total Protein Albumin Vitamin B12 TSH 5.190 H Free T4 CSF VDRL Lymph Enumerat CD4/CD8 Absolute CD3 Count % CD4 Cells Absolute CD4 Count % CD8 Cells Absolute CD19 Count T.pallidum Ab (FTA-ABS) HIV-1 RNA PCR copies/ml HIV-1 RNA (PCR) log Miscellaneous Test 09/19/18 09/19/18 09/20/18 15:00 15:00 05:33 WBC RBC Hgb Hct Plt Count Seg Neuts % (Manual) Lymphocytes % (Manual) Monocytes % (Manual) Eosinophils % (Manual) Basophils % (Manual) Nucleated RBC % Seg Neutrophils # Man Abs Lymphs (Manual) Lymphocytes # (Manual) PT INR APTT Heparin Anti-Xa Level POC ABG pH POC ABG pCO2 POC ABG pO2 Sodium 136 L Potassium Chloride Carbon Dioxide 19 L BUN 7 L Creatinine Glucose POC Glucose Lactic Acid Calcium Phosphorus AST ALT Total Creatine Kinase Total Protein Albumin Vitamin B12 TSH Free T4 CSF VDRL Reactive 1:4 H Lymph Enumerat CD4/CD8 Absolute CD3 Count % CD4 Cells Absolute CD4 Count % CD8 Cells Absolute CD19 Count T.pallidum Ab (FTA-ABS) HIV-1 RNA PCR copies/ml HIV-1 RNA (PCR) log Miscellaneous Test Flexitest 1 H 09/20/18 09/21/18 09/21/18 06:52 01:06 03:49 WBC 2.5 L RBC Hgb Hct Plt Count Seg Neuts % (Manual) Lymphocytes % (Manual) Monocytes % (Manual) Eosinophils % (Manual) Basophils % (Manual) Nucleated RBC % Seg Neutrophils # Man Abs Lymphs (Manual) Lymphocytes # (Manual) PT INR APTT Heparin Anti-Xa Level POC ABG pH 7.159 L POC ABG pCO2 32.9 L 70.0 H POC ABG pO2 62 L 254 H Sodium Potassium Chloride Carbon Dioxide BUN Creatinine Glucose POC Glucose Lactic Acid Calcium Phosphorus AST ALT Total Creatine Kinase Total Protein Albumin Vitamin B12 TSH Free T4 CSF VDRL Lymph Enumerat CD4/CD8 Absolute CD3 Count % CD4 Cells Absolute CD4 Count % CD8 Cells Absolute CD19 Count T.pallidum Ab (FTA-ABS) HIV-1 RNA PCR copies/ml HIV-1 RNA (PCR) log Miscellaneous Test 09/21/18 09/21/18 09/21/18 04:15 04:15 04:25 WBC 3.1 L RBC Hgb 11.6 L Hct Plt Count Seg Neuts % (Manual) Lymphocytes % (Manual) Monocytes % (Manual) 12.0 H Eosinophils % (Manual) Basophils % (Manual) Nucleated RBC % Seg Neutrophils # Man 1.6 L Abs Lymphs (Manual) Lymphocytes # (Manual) 0.5 L PT INR APTT Heparin Anti-Xa Level POC ABG pH POC ABG pCO2 POC ABG pO2 Sodium Potassium 6.1 H* D Chloride Carbon Dioxide 19 L BUN Creatinine Glucose 108 H POC Glucose Lactic Acid Calcium Phosphorus AST ALT Total Creatine Kinase 685 H Total Protein Albumin Vitamin B12 TSH Free T4 CSF VDRL Lymph Enumerat CD4/CD8 Absolute CD3 Count % CD4 Cells Absolute CD4 Count % CD8 Cells Absolute CD19 Count T.pallidum Ab (FTA-ABS) HIV-1 RNA PCR copies/ml HIV-1 RNA (PCR) log Miscellaneous Test 09/21/18 09/21/18 09/21/18 09:59 10:07 11:00 WBC RBC Hgb 11.7 L Hct Plt Count Seg Neuts % (Manual) Lymphocytes % (Manual) Monocytes % (Manual) Eosinophils % (Manual) Basophils % (Manual) Nucleated RBC % Seg Neutrophils # Man Abs Lymphs (Manual) Lymphocytes # (Manual) PT INR APTT Heparin Anti-Xa Level POC ABG pH 7.301 L POC ABG pCO2 POC ABG pO2 109 H Sodium Potassium 6.5 H* Chloride Carbon Dioxide 18 L BUN Creatinine 2.1 H D Glucose POC Glucose Lactic Acid Calcium 8.1 L Phosphorus AST 94 H ALT Total Creatine Kinase Total Protein Albumin 2.8 L Vitamin B12 TSH Free T4 CSF VDRL Lymph Enumerat CD4/CD8 Absolute CD3 Count % CD4 Cells Absolute CD4 Count % CD8 Cells Absolute CD19 Count T.pallidum Ab (FTA-ABS) HIV-1 RNA PCR copies/ml HIV-1 RNA (PCR) log Miscellaneous Test 09/21/18 09/21/18 09/21/18 15:00 21:54 21:54 WBC RBC Hgb Hct Plt Count Seg Neuts % (Manual) Lymphocytes % (Manual) Monocytes % (Manual) Eosinophils % (Manual) Basophils % (Manual) Nucleated RBC % Seg Neutrophils # Man Abs Lymphs (Manual) Lymphocytes # (Manual) PT 19.9 H INR 1.65 H APTT 40.9 H Heparin Anti-Xa Level 0.98 H POC ABG pH POC ABG pCO2 POC ABG pO2 Sodium Potassium 5.2 H Chloride Carbon Dioxide BUN Creatinine Glucose POC Glucose Lactic Acid Calcium Phosphorus AST ALT Total Creatine Kinase Total Protein Albumin Vitamin B12 TSH Free T4 CSF VDRL Lymph Enumerat CD4/CD8 Absolute CD3 Count % CD4 Cells Absolute CD4 Count % CD8 Cells Absolute CD19 Count T.pallidum Ab (FTA-ABS) HIV-1 RNA PCR copies/ml HIV-1 RNA (PCR) log Miscellaneous Test 09/21/18 09/22/18 09/22/18 22:57 03:01 05:27 WBC RBC Hgb Hct Plt Count Seg Neuts % (Manual) Lymphocytes % (Manual) Monocytes % (Manual) Eosinophils % (Manual) Basophils % (Manual) Nucleated RBC % Seg Neutrophils # Man Abs Lymphs (Manual) Lymphocytes # (Manual) PT INR APTT Heparin Anti-Xa Level POC ABG pH POC ABG pCO2 32.7 L POC ABG pO2 Sodium Potassium Chloride Carbon Dioxide BUN Creatinine Glucose POC Glucose 124 H 128 H Lactic Acid Calcium Phosphorus AST ALT Total Creatine Kinase Total Protein Albumin Vitamin B12 TSH Free T4 CSF VDRL Lymph Enumerat CD4/CD8 Absolute CD3 Count % CD4 Cells Absolute CD4 Count % CD8 Cells Absolute CD19 Count T.pallidum Ab (FTA-ABS) HIV-1 RNA PCR copies/ml HIV-1 RNA (PCR) log Miscellaneous Test 09/22/18 09/22/18 09/22/18 07:00 07:00 11:32 WBC 1.8 L* RBC 3.59 L Hgb 10.1 L Hct 30.8 L Plt Count 126 L Seg Neuts % (Manual) Lymphocytes % (Manual) Monocytes % (Manual) Eosinophils % (Manual) Basophils % (Manual) Nucleated RBC % Seg Neutrophils # Man Abs Lymphs (Manual) Lymphocytes # (Manual) PT INR APTT Heparin Anti-Xa Level POC ABG pH POC ABG pCO2 POC ABG pO2 Sodium Potassium Chloride Carbon Dioxide BUN 27 H Creatinine 2.0 H Glucose 128 H POC Glucose 123 H Lactic Acid Calcium 6.9 L Phosphorus AST ALT Total Creatine Kinase Total Protein Albumin Vitamin B12 TSH Free T4 CSF VDRL Lymph Enumerat CD4/CD8 Absolute CD3 Count % CD4 Cells Absolute CD4 Count % CD8 Cells Absolute CD19 Count T.pallidum Ab (FTA-ABS) HIV-1 RNA PCR copies/ml HIV-1 RNA (PCR) log Miscellaneous Test 09/22/18 09/22/18 09/22/18 15:52 18:18 23:52 WBC RBC Hgb Hct Plt Count Seg Neuts % (Manual) Lymphocytes % (Manual) Monocytes % (Manual) Eosinophils % (Manual) Basophils % (Manual) Nucleated RBC % Seg Neutrophils # Man Abs Lymphs (Manual) Lymphocytes # (Manual) PT INR APTT Heparin Anti-Xa Level POC ABG pH POC ABG pCO2 48.7 H POC ABG pO2 Sodium Potassium Chloride Carbon Dioxide BUN Creatinine Glucose POC Glucose 110 H 124 H Lactic Acid Calcium Phosphorus AST ALT Total Creatine Kinase Total Protein Albumin Vitamin B12 TSH Free T4 CSF VDRL Lymph Enumerat CD4/CD8 Absolute CD3 Count % CD4 Cells Absolute CD4 Count % CD8 Cells Absolute CD19 Count T.pallidum Ab (FTA-ABS) HIV-1 RNA PCR copies/ml HIV-1 RNA (PCR) log Miscellaneous Test 09/23/18 09/23/18 09/23/18 04:10 05:55 05:55 WBC RBC Hgb 10.0 L Hct 30.3 L Plt Count 117 L Seg Neuts % (Manual) Lymphocytes % (Manual) Monocytes % (Manual) Eosinophils % (Manual) Basophils % (Manual) Nucleated RBC % Seg Neutrophils # Man Abs Lymphs (Manual) Lymphocytes # (Manual) PT INR APTT Heparin Anti-Xa Level 0.26 L POC ABG pH POC ABG pCO2 POC ABG pO2 144 H Sodium Potassium Chloride Carbon Dioxide BUN Creatinine Glucose POC Glucose Lactic Acid Calcium Phosphorus AST ALT Total Creatine Kinase Total Protein Albumin Vitamin B12 TSH Free T4 CSF VDRL Lymph Enumerat CD4/CD8 Absolute CD3 Count % CD4 Cells Absolute CD4 Count % CD8 Cells Absolute CD19 Count T.pallidum Ab (FTA-ABS) HIV-1 RNA PCR copies/ml HIV-1 RNA (PCR) log Miscellaneous Test 09/23/18 09/23/18 09/23/18 08:10 08:10 23:57 WBC 1.3 L* RBC 3.53 L Hgb 9.9 L Hct 30.0 L Plt Count 119 L Seg Neuts % (Manual) Lymphocytes % (Manual) Monocytes % (Manual) Eosinophils % (Manual) Basophils % (Manual) Nucleated RBC % Seg Neutrophils # Man Abs Lymphs (Manual) Lymphocytes # (Manual) PT INR APTT Heparin Anti-Xa Level POC ABG pH POC ABG pCO2 POC ABG pO2 Sodium Potassium Chloride Carbon Dioxide BUN Creatinine Glucose 122 H POC Glucose 115 H Lactic Acid Calcium 6.9 L Phosphorus AST ALT Total Creatine Kinase Total Protein Albumin Vitamin B12 TSH Free T4 CSF VDRL Lymph Enumerat CD4/CD8 Absolute CD3 Count % CD4 Cells Absolute CD4 Count % CD8 Cells Absolute CD19 Count T.pallidum Ab (FTA-ABS) HIV-1 RNA PCR copies/ml HIV-1 RNA (PCR) log Miscellaneous Test 09/24/18 09/24/18 09/24/18 12:04 14:42 18:10 WBC RBC Hgb Hct Plt Count Seg Neuts % (Manual) Lymphocytes % (Manual) Monocytes % (Manual) Eosinophils % (Manual) Basophils % (Manual) Nucleated RBC % Seg Neutrophils # Man Abs Lymphs (Manual) Lymphocytes # (Manual) PT INR APTT Heparin Anti-Xa Level 0.76 H POC ABG pH POC ABG pCO2 POC ABG pO2 Sodium Potassium Chloride Carbon Dioxide BUN Creatinine Glucose POC Glucose 111 H 138 H Lactic Acid Calcium Phosphorus AST ALT Total Creatine Kinase Total Protein Albumin Vitamin B12 TSH Free T4 CSF VDRL Lymph Enumerat CD4/CD8 Absolute CD3 Count % CD4 Cells Absolute CD4 Count % CD8 Cells Absolute CD19 Count T.pallidum Ab (FTA-ABS) HIV-1 RNA PCR copies/ml HIV-1 RNA (PCR) log Miscellaneous Test 09/25/18 09/25/18 09/25/18 03:45 04:24 14:20 WBC RBC Hgb 9.7 L Hct 29.4 L Plt Count 104 L Seg Neuts % (Manual) Lymphocytes % (Manual) Monocytes % (Manual) Eosinophils % (Manual) Basophils % (Manual) Nucleated RBC % Seg Neutrophils # Man Abs Lymphs (Manual) Lymphocytes # (Manual) PT INR APTT Heparin Anti-Xa Level POC ABG pH 7.460 H POC ABG pCO2 32.9 L POC ABG pO2 Sodium Potassium 3.5 L Chloride 110.3 H Carbon Dioxide BUN Creatinine Glucose 105 H POC Glucose Lactic Acid Calcium 6.7 L Phosphorus AST 633 H ALT 481 H Total Creatine Kinase Total Protein 4.8 L D Albumin 1.9 L Vitamin B12 TSH Free T4 CSF VDRL Lymph Enumerat CD4/CD8 Absolute CD3 Count % CD4 Cells Absolute CD4 Count % CD8 Cells Absolute CD19 Count T.pallidum Ab (FTA-ABS) HIV-1 RNA PCR copies/ml HIV-1 RNA (PCR) log Miscellaneous Test 09/26/18 09/26/18 09/26/18 06:15 06:15 10:43 WBC 1.2 L* RBC 3.32 L Hgb 9.2 L Hct 28.6 L Plt Count 97 L Seg Neuts % (Manual) 24.0 L Lymphocytes % (Manual) 43.0 H Monocytes % (Manual) 19.0 H Eosinophils % (Manual) 8.0 H Basophils % (Manual) 2.0 H Nucleated RBC % 3.0 H Seg Neutrophils # Man 0.0 L Abs Lymphs (Manual) Lymphocytes # (Manual) 0.0 L PT INR APTT Heparin Anti-Xa Level POC ABG pH 7.459 H POC ABG pCO2 POC ABG pO2 141 H Sodium Potassium Chloride 112.8 H Carbon Dioxide BUN Creatinine Glucose 110 H POC Glucose Lactic Acid Calcium 7.0 L Phosphorus 0.90 L* AST 362 H ALT 360 H Total Creatine Kinase Total Protein 4.9 L Albumin 1.5 L Vitamin B12 TSH Free T4 CSF VDRL Lymph Enumerat CD4/CD8 Absolute CD3 Count % CD4 Cells Absolute CD4 Count % CD8 Cells Absolute CD19 Count T.pallidum Ab (FTA-ABS) HIV-1 RNA PCR copies/ml HIV-1 RNA (PCR) log Miscellaneous Test 09/26/18 09/27/18 09/28/18 13:56 04:11 07:49 WBC RBC Hgb 9.1 L Hct 29.1 L Plt Count 96 L Seg Neuts % (Manual) Lymphocytes % (Manual) Monocytes % (Manual) Eosinophils % (Manual) Basophils % (Manual) Nucleated RBC % Seg Neutrophils # Man Abs Lymphs (Manual) Lymphocytes # (Manual) PT INR APTT Heparin Anti-Xa Level POC ABG pH POC ABG pCO2 POC ABG pO2 Sodium 146 H Potassium Chloride 111.6 H Carbon Dioxide BUN Creatinine Glucose POC Glucose 135 H Lactic Acid Calcium 7.4 L Phosphorus AST ALT Total Creatine Kinase Total Protein Albumin Vitamin B12 TSH Free T4 CSF VDRL Lymph Enumerat CD4/CD8 Absolute CD3 Count % CD4 Cells Absolute CD4 Count % CD8 Cells Absolute CD19 Count T.pallidum Ab (FTA-ABS) HIV-1 RNA PCR copies/ml HIV-1 RNA (PCR) log Miscellaneous Test 09/28/18 09/29/18 09/29/18 10:43 05:00 05:00 WBC 1.2 L* RBC 3.13 L Hgb 8.6 L Hct 27.3 L Plt Count 137 L Seg Neuts % (Manual) Lymphocytes % (Manual) Monocytes % (Manual) 16.0 H Eosinophils % (Manual) Basophils % (Manual) Nucleated RBC % 4.0 H Seg Neutrophils # Man 0.5 L Abs Lymphs (Manual) Lymphocytes # (Manual) 0.3 L PT INR APTT Heparin Anti-Xa Level POC ABG pH 7.300 L POC ABG pCO2 53.9 H POC ABG pO2 Sodium 147 H Potassium 3.4 L Chloride 114.5 H Carbon Dioxide BUN Creatinine Glucose POC Glucose Lactic Acid Calcium 7.7 L Phosphorus AST 69 H ALT 110 H Total Creatine Kinase Total Protein 5.2 L Albumin 1.9 L Vitamin B12 TSH Free T4 CSF VDRL Lymph Enumerat CD4/CD8 Absolute CD3 Count % CD4 Cells Absolute CD4 Count % CD8 Cells Absolute CD19 Count T.pallidum Ab (FTA-ABS) HIV-1 RNA PCR copies/ml HIV-1 RNA (PCR) log Miscellaneous Test 09/29/18 09/29/18 06:07 13:22 WBC RBC Hgb Hct Plt Count Seg Neuts % (Manual) Lymphocytes % (Manual) Monocytes % (Manual) Eosinophils % (Manual) Basophils % (Manual) Nucleated RBC % Seg Neutrophils # Man Abs Lymphs (Manual) Lymphocytes # (Manual) PT INR APTT Heparin Anti-Xa Level POC ABG pH POC ABG pCO2 46.9 H POC ABG pO2 Sodium Potassium Chloride Carbon Dioxide BUN Creatinine Glucose POC Glucose 109 H Lactic Acid Calcium Phosphorus AST ALT Total Creatine Kinase Total Protein Albumin Vitamin B12 TSH Free T4 CSF VDRL Lymph Enumerat CD4/CD8 Absolute CD3 Count % CD4 Cells Absolute CD4 Count % CD8 Cells Absolute CD19 Count T.pallidum Ab (FTA-ABS) HIV-1 RNA PCR copies/ml HIV-1 RNA (PCR) log Miscellaneous Test Chest x-ray: image reviewed Allied health notes reviewed: nursing
[2018-09-29] MEDS: HEPARIN/ 0.45% NACL-25,000 UNIT/500 ML 25,000 UNIT/500 ML BAG IV SCH (19:21)
[2018-09-30] MEDS: CYTOVENE 500 MG in NACL 0.9% 250ML 250 ML IV SCH ×2 (00:09→14:20)
[2018-09-30] MEDS: SODIUM CHLORIDE FLUSH SYRINGE 10 ML IV SCH ×2 (03:18→09:51)
[2018-09-30] MEDS: LOPRESSOR IV SCH ×4 (03:19→20:50)
[2018-09-30] MEDS: PROVENTIL IH SCH ×4 (03:21→20:35)
[2018-09-30 05:38] LABS: Hematocrit 25.9 % (35.5-45.6); Hemoglobin 8.6 gm/dl (11.8-15.2); Mean Corpuscular HGB Conc 33 % (32-34); Mean Corpuscular Volume 85 fl (84-94); Platelet Count 142 K/mm3 (140-440); Red Blood Count 3.03 M/mm3 (3.65-5.03); Red Cell Distribution Width 14.9 % (13.2-15.2)
[2018-09-30] MEDS ORDERED: NACL 0.9% 500 ML 500 ML ONE (05:48)
[2018-09-30] MEDS: FLAGYL PO SCH ×3 (06:00→23:08)
[2018-09-30] MEDS: ROBINUL PO SCH ×3 (06:00→23:07)
[2018-09-30] MEDS: SYNTHROID PO SCH (06:00)
[2018-09-30 06:08] LABS: BUN/Creatinine Ratio 21; Blood Urea Nitrogen 19 mg/dL (9-20); Calcium 7.9 mg/dL (8.4-10.2); Hemolysis Index 5
--- NOTE | 2018-09-30 06:32 | Progress Note ---
Assessment and Plan - Patient Problems (1) Acute kidney failure with tubular necrosis Current Visit: Yes Status: Acute Plan to address problem: Overall renal function is stable. Need for close monitoring while receiving IV ganciclovir. Remains non oliguric. Continue to monitor. . (2) Hypernatremia Current Visit: Yes Status: Acute Plan to address problem: Increased free water flushes with TF to 100 cc q4h. Will continue to monitor (3) Acute respiratory failure with hypoxia Current Visit: Yes Status: Acute Plan to address problem: Remains intubated. Recent Chest xray noted, with development of patchy infiltrates in the right lung. Further management per pulm/ICU (4) Hypokalemia Current Visit: Yes Status: Acute Plan to address problem: Replete per protocol to maintain levels above 3.5. 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 Will continue to monitor. He is awake this am but is not following simple commands. Does respond to painful/tactile stimuli. Will monitor (6) Pancytopenia Current Visit: Yes Status: Acute Plan to address problem: In the setting of CMV viremia, HIV/AIDS. Now on neutropenic precautions with worsening precautions. May benefit from neupogen. Will defer to primary team. (7) HIV (human immunodeficiency virus infection) Current Visit: Yes Status: Chronic Plan to address problem: Management per ID recommendations. Subjective Date of service: 09/30/18 Principal diagnosis: Severe sepsis; Ac hypoxemic Resp failure; [place]. Pneumonia; Ac encephalopathy Interval history: Is more awake this am off sedation. He does not follow commamds and is still very weak. Labs noted with worsening leukopenia. On neutropenic precautions. He remains non oliguric and overall renal function has been stable. Remains intubated. Objective - Vital Signs Vital signs: Vital Signs - 12hr 09/29/18 09/29/18 09/29/18 18:30 19:00 19:30 Temperature Pulse Rate 87 97 H 88 Pulse Rate [ From Monitor] Pulse Rate [ Throughout] Respiratory 18 20 16 Rate Respiratory Rate [ Throughout] Blood Pressure 119/67 135/73 125/67 O2 Sat by Pulse 99 100 100 Oximetry 09/29/18 09/29/18 09/29/18 20:00 20:10 20:30 Temperature 97.8 F Pulse Rate 92 H 102 H 95 H Pulse Rate [ 98 H From Monitor] Pulse Rate [ 90 Throughout] Respiratory 21 18 13 Rate Respiratory 12 Rate [ Throughout] Blood Pressure 125/69 125/67 O2 Sat by Pulse 100 100 100 Oximetry 09/29/18 09/29/18 09/29/18 21:00 21:30 22:00 Temperature Pulse Rate 94 H 88 92 H Pulse Rate [ From Monitor] Pulse Rate [ Throughout] Respiratory 20 19 12 Rate Respiratory Rate [ Throughout] Blood Pressure 125/64 125/64 137/78 O2 Sat by Pulse 100 100 100 Oximetry 09/29/18 09/29/18 09/29/18 22:30 23:00 23:26 Temperature Pulse Rate 93 H 91 H 91 H Pulse Rate [ From Monitor] Pulse Rate [ Throughout] Respiratory 15 14 14 Rate Respiratory Rate [ Throughout] Blood Pressure 125/64 134/79 134/79 O2 Sat by Pulse 100 100 100 Oximetry 09/29/18 09/30/18 09/30/18 23:30 00:00 00:07 Temperature 97.8 F Pulse Rate 89 87 86 Pulse Rate [ 90 From Monitor] Pulse Rate [ Throughout] Respiratory 16 19 Rate Respiratory Rate [ Throughout] Blood Pressure 134/79 125/71 125/71 O2 Sat by Pulse 100 100 100 Oximetry 09/30/18 09/30/18 09/30/18 00:30 01:00 01:31 Temperature Pulse Rate 89 84 86 Pulse Rate [ From Monitor] Pulse Rate [ Throughout] Respiratory 14 14 12 Rate Respiratory Rate [ Throughout] Blood Pressure 125/71 125/71 O2 Sat by Pulse 100 100 100 Oximetry 09/30/18 09/30/18 09/30/18 02:00 02:31 03:00 Temperature Pulse Rate 92 H 83 84 Pulse Rate [ From Monitor] Pulse Rate [ Throughout] Respiratory 12 16 18 Rate Respiratory Rate [ Throughout] Blood Pressure 149/89 149/89 149/89 O2 Sat by Pulse 100 100 100 Oximetry 09/30/18 09/30/18 09/30/18 03:19 03:31 04:00 Temperature 97.3 F L Pulse Rate 83 83 86 Pulse Rate [ 83 From Monitor] Pulse Rate [ Throughout] Respiratory 15 15 Rate Respiratory Rate [ Throughout] Blood Pressure 137/74 137/74 137/74 O2 Sat by Pulse 100 100 Oximetry 09/30/18 09/30/18 09/30/18 04:17 04:31 05:00 Temperature Pulse Rate 87 82 87 Pulse Rate [ From Monitor] Pulse Rate [ Throughout] Respiratory 13 18 Rate Respiratory Rate [ Throughout] Blood Pressure 133/80 120/68 O2 Sat by Pulse 100 100 100 Oximetry 09/30/18 09/30/18 05:31 06:00 Temperature Pulse Rate 84 82 Pulse Rate [ From Monitor] Pulse Rate [ Throughout] Respiratory 17 13 Rate Respiratory Rate [ Throughout] Blood Pressure 120/68 120/68 O2 Sat by Pulse 100 100 Oximetry - General Appearance General appearance: appears stated age, intubated EENT: ATNC, PERRL Neck: no JVD, no thyromegaly Respiratory: Present: Clear to Ascultation Cardiology: regular, S1S2 Gastrointestinal: normal, normoactive bowel sounds Integumentary: rash (noted on pinnae of right ear), warm and dry Neurologic: other (weak, not following commands, but is awake) Musculoskeletal: other (mild LE edema non pitting ) Psychiatric: other (not following commands, flat affect ) - Lab 09/30/18 05:19 09/30/18 05:19 Most recent lab results Calcium 7.9 mg/dL (8.4-10.2) L 09/30/18 05:19 Phosphorus 3.10 mg/dL (2.5-4.5) D 09/27/18 04:11 Magnesium 1.80 mg/dL (1.7-2.3) 09/26/18 06:15 - Allied health notes Allied health notes reviewed: nursing Medications & Allergies - Medications Allergies/Adverse Reactions: Allergies No Known Allergies Allergy (Unverified 09/11/18 17:50) Active Medications: Generic Name Dose Route Start Last Admin Trade Name Freq PRN Reason Stop Dose Admin Acetaminophen 650 mg 09/11/18 19:30 09/23/18 08:41 Tylenol PO 650 mg Q4H PRN Administration Pain MILD(1-3)/Fever >100.5/RIVERA Acetaminophen 650 mg 09/21/18 07:39 Tylenol [place] Q4H PRN Fever >101 Albuterol 2.5 mg 09/11/18 19:30 09/16/18 06:09 Proventil IH 2.5 mg Q4HRT PRN Administration Shortness Of Breath Albuterol 2.5 mg 09/20/18 20:00 09/30/18 03:21 Proventil IH Not Given Q6HRT GIA Amiodarone HCl 200 mg 09/27/18 15:00 09/29/18 22:29 Cordarone PO 200 mg BID GIA Administration Lipase/Protease/Amylase 1 each 09/26/18 14:18 Pancrealen Gibbs 10,500 Unit FEEDTUBE PRN PRN For Clogged Feeding Tube Atovaquone 750 mg 09/21/18 10:00 09/29/18 22:32 Mepron PO 750 mg BID GIA Administration Azithromycin 1,200 mg 09/25/18 10:00 09/25/18 10:00 Zithromax PO 1,200 mg Walters GIA Administration Famotidine 20 mg 09/24/18 10:00 09/29/18 22:29 Pepcid PO 20 mg BID GIA Administration Glycopyrrolate 2 mg 09/23/18 15:00 09/30/18 06:00 Robinul PO 2 mg Q8HR GIA Administration Hydrophilic Ointment 1 applic 09/21/18 01:46 09/22/18 03:46 Vaseline Lip Therapy TP 1 applic Q2HR PRN Administration Dry Lips Fluconazole 200 mls @ 100 mls/hr 09/13/18 14:00 09/29/18 09:37 Diflucan IV 100 mls/hr Q24HR GIA Administration Protocol Heparin Sodium/Sodium Chloride 25,000 unit in 500 mls @ 30 mls/hr 09/21/18 11:00 09/30/18 01:30 Heparin/ 0.45% Nacl-25,000 Unit/500 Ml IV 1,300 units/hr TITR GIA 26 mls/hr Titration Protocol 1,500 UNITS/HR Ganciclovir Sodium 500 mg/ 250 mls @ 100 mls/hr 09/23/18 13:00 09/30/18 00:09 Sodium Chloride IV 100 mls/hr Q12H GIA Administration Ceftriaxone Sodium 2 gm in 100 mls @ 200 mls/hr 09/23/18 13:00 09/29/18 22:31 Rocephin/Ns 2 Gm/100 Ml IV 200 mls/hr Q12HR GIA Administration Protocol Levothyroxine Sodium 25 mcg 09/19/18 06:00 09/30/18 06:00 Synthroid PO 25 mcg DAILY@0600 GIA Administration Metoprolol Tartrate 5 mg 09/21/18 03:00 09/30/18 03:19 Lopressor IV Not Given Q6H GIA Metronidazole 500 mg 09/26/18 14:00 09/30/18 06:00 Flagyl PO 500 mg Q8HR GIA Administration Protocol Multi-Ingred Cream/Lotion/Oil/Oint 1 applic 09/21/18 01:46 Artificial Tears Ophth Oint OU Q4HR PRN Dry Eye(s) Ondansetron HCl 4 mg 09/11/18 19:30 Zofran IV Q8H PRN Nausea And Vomiting Scopolamine 1 each 09/18/18 18:00 09/27/18 18:35 Transderm-Scop TD 1 each Q3D GIA Administration Simple Syrup 15 ml 09/26/18 14:18 Simple Syrup FEEDTUBE PRN PRN Hypoglycemia Simple Syrup 30 ml 09/26/18 14:18 Simple Syrup FEEDTUBE PRN PRN Hypoglycemia Sodium Bicarbonate 325 mg 09/26/18 14:18 Sodium Bicarbonate FEEDTUBE PRN PRN For Clogged Feeding Tube Sodium Chloride 10 ml 09/11/18 22:00 09/30/18 03:18 Sodium Chloride Flush Syringe 10 Ml IV Not Given BID GIA Sodium Chloride 10 ml 09/11/18 19:30 Sodium Chloride Flush Syringe 10 Ml IV PRN PRN LINE FLUSH
--- NOTE | 2018-09-30 09:27 | Progress Note ---
Assessment and Plan Assessment and plan: Severe Sepsis. Etiology secondary to bacterial pneumonia +/- gastroenteritis with newly diagnosed with HIV. Continue IV antibiotics per ID. Acute hypoxemic respiratory failure. Etiology secondary to sepsis/multifocal pneumonia with probable concomitant aspiration. Intubated, on vent. Pulm following Bilateral pneumonia. Etiology likely secondary to PJP Pneumonia +/- aspiration. Chest x-ray, CT scan reveals multifocal pneumonia. Tracheal aspirate with Nona albicans. Toxic metabolic encephalopathy. 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 Of note, MRI did not show ventriculitis. Blood CMV DNA PCR = 1,058,978. CSF YAYO virus DNA PCR neg. Gastroenteritis. Follow-up stool studies and CT scan of the abdomen and pelvis--check for colitis when patient is hemodynamically stable. Continue antibiotics per ID A. fib with RVR. Converted to NSR. cont Amiodarone 200 bid Cont Heparin drip. 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 Diarrhea. Resolved, etiology likely secondary to Giardia. Giardia antigen positive in stool. Oral candidiasis. Continue fluconazole. HIV/AIDS. New Diagnosis. Neutropenia/thrombocytopenia. Likely from HIV myelosuppression, sepsis Fever. Hypernatremia. start D5W Prognosis is guarded. The high probability of a clinically significant, sudden or life threatening deterioration of the [4] system(s) required my full and direct attention, intervention and personal management. The aggregate critical care time was [31] minutes. This time is in addition to time spent performing reported procedures but includes the following: [x] Data Review and interpretation [x] Patient assessment and monitoring of vital signs [x] Documentation [x] Medication orders and management History Interval history: Patient transferred to ICU,now intubated, on vent Fever up to yesterday Hospitalist Physical - Physical exam Narrative exam: GEN: Intubated, on ventilator HEENT: Normocephalic, atraumatic, Neck: supple, No JVD Lungs: Bilateral coarse breath sounds, Heart:S1 and S2 regular, no murmurs, rubs or gallop, Abd:soft, non tender, non distended, normal bowel sounds Ext: No edema, no clubbing or cyanosis Neuro: Intubated - Constitutional Vitals: Temp Pulse Resp BP Pulse Ox 98.7 F 84 13 127/77 100 09/30/18 08:00 09/30/18 08:45 09/30/18 08:31 09/30/18 08:45 09/30/18 08:31 General appearance: Present: other (orally intubated) Results - Labs CBC & Chem 7: 09/30/18 05:19 09/30/18 05:19 Labs: Laboratory Last Values WBC 0.9 K/mm3 (4.5-11.0) L* 09/30/18 05:19 RBC 3.03 M/mm3 (3.65-5.03) L 09/30/18 05:19 Hgb 8.6 gm/dl (11.8-15.2) L 09/30/18 05:19 Hct 25.9 % (35.5-45.6) L 09/30/18 05:19 MCV 85 fl (84-94) 09/30/18 05:19 MCH 28 pg (28-32) 09/30/18 05:19 MCHC 33 % (32-34) 09/30/18 05:19 RDW 14.9 % (13.2-15.2) 09/30/18 05:19 Plt Count 142 K/mm3 (140-440) 09/30/18 05:19 Wells % (Auto) Seal Skinner 09/29/18 05:00 Baso % (Auto) Seal Skinner 09/29/18 05:00 Add Manual Diff Complete 09/29/18 05:00 Total Counted 25 09/29/18 05:00 Seg Neutrophils % Seal Skinner 09/29/18 05:00 Seg Neuts % (Manual) 40.0 % (40.0-70.0) 09/29/18 05:00 Band Neutrophils % 4.0 % 09/29/18 05:00 Lymphocytes % (Manual) 28.0 % (13.4-35.0) 09/29/18 05:00 Reactive Lymphs % (Man) 0 % 09/29/18 05:00 Monocytes % (Manual) 16.0 % (0.0-7.3) H 09/29/18 05:00 Eosinophils % (Manual) 0 % (0.0-4.3) 09/29/18 05:00 Basophils % (Manual) 0 % (0.0-1.8) 09/29/18 05:00 Metamyelocytes % 8.0 % 09/29/18 05:00 Myelocytes % 0 % 09/29/18 05:00 Promyelocytes % 4.0 % 09/29/18 05:00 Blast Cells % 0 % 09/29/18 05:00 Nucleated RBC % 4.0 % (0.0-0.9) H 09/29/18 05:00 Seg Neutrophils # Man 0.5 K/mm3 (1.8-7.7) L 09/29/18 05:00 Band Neutrophils # 0.0 K/mm3 09/29/18 05:00 Abs Lymphs (Manual) 309 cells/uL (850-3900) L 09/13/18 12:29 Lymphocytes # (Manual) 0.3 K/mm3 (1.2-5.4) L 09/29/18 05:00 Abs React Lymphs (Man) 0.0 K/mm3 09/29/18 05:00 Monocytes # (Manual) 0.2 K/mm3 (0.0-0.8) 09/29/18 05:00 Eosinophils # (Manual) 0.0 K/mm3 (0.0-0.4) 09/29/18 05:00 Basophils # (Manual) 0.0 K/mm3 (0.0-0.1) 09/29/18 05:00 Metamyelocytes # 0.1 K/mm3 09/29/18 05:00 Myelocytes # 0.0 K/mm3 09/29/18 05:00 Promyelocytes # 0.0 K/mm3 09/29/18 05:00 Blast Cells # 0.0 K/mm3 09/29/18 05:00 WBC Morphology Not Reportable 09/29/18 05:00 Hypersegmented Neuts Not Reportable 09/29/18 05:00 Hyposegmented Neuts Not Reportable 09/29/18 05:00 Hypogranular Neuts Not Reportable 09/29/18 05:00 Smudge Cells Not Reportable 09/29/18 05:00 Toxic Granulation Not Reportable 09/29/18 05:00 Toxic Vacuolation Not Reportable 09/29/18 05:00 Dohle Bodies Not Reportable 09/29/18 05:00 Pelger-Huet Anomaly Not Reportable 09/29/18 05:00 Giovanna Rods Not Reportable 09/29/18 05:00 Platelet Estimate Appears normal 09/29/18 05:00 Clumped Platelets Not Reportable 09/29/18 05:00 Plt Clumps, EDTA Not Reportable 09/29/18 05:00 Large Platelets Few 09/29/18 05:00 Giant Platelets Not Reportable 09/29/18 05:00 Platelet Satelliting Not Reportable 09/29/18 05:00 Plt Morphology Comment Not Reportable 09/29/18 05:00 RBC Morphology Not Reportable 09/29/18 05:00 Dimorphic RBCs Not Reportable 09/29/18 05:00 Polychromasia Not Reportable 09/29/18 05:00 Hypochromasia 1+ 09/29/18 05:00 Poikilocytosis Not Reportable 09/29/18 05:00 Anisocytosis 1+ 09/29/18 05:00 Microcytosis Not Reportable 09/29/18 05:00 Macrocytosis Rare 09/29/18 05:00 Spherocytes Not Reportable 09/29/18 05:00 Pappenheimer Bodies Not Reportable 09/29/18 05:00 Sickle Cells Not Reportable 09/29/18 05:00 Target Cells Few 09/29/18 05:00 Tear Drop Cells Not Reportable 09/29/18 05:00 Ovalocytes 2+ 09/29/18 05:00 Stomatocytes 1+ 09/29/18 05:00 Helmet Cells Not Reportable 09/29/18 05:00 [place] Bodies Not Reportable 09/29/18 05:00 [place] Rings Not Reportable 09/29/18 05:00 [place] Cells Not Reportable 09/29/18 05:00 Bite Cells Not Reportable 09/29/18 05:00 Crenated Cell Not Reportable 09/29/18 05:00 Elliptocytes Few 09/29/18 05:00 Acanthocytes (Spur) Not Reportable 09/29/18 05:00 Rouleaux Not Reportable 09/29/18 05:00 Hemoglobin C Crystals Not Reportable 09/29/18 05:00 Schistocytes Not Reportable 09/29/18 05:00 Malaria parasites Not Reportable 09/29/18 05:00 Kieran Bodies Not Reportable 09/29/18 05:00 Hem Pathologist Commnt No 09/29/18 05:00 PT 19.9 Sec. (12.2-14.9) H 09/21/18 15:00 INR 1.65 (0.87-1.13) H 09/21/18 15:00 APTT 40.9 Sec. (24.2-36.6) H 09/21/18 15:00 Heparin Anti-Xa Level 0.70 U.I./ml (0.3-0.7) 09/29/18 21:39 POC ABG pH 7.370 (7.35-7.45) 09/29/18 13:22 POC ABG pCO2 46.9 (35-45) H 09/29/18 13:22 POC ABG pO2 86 (80-105) 09/29/18 13:22 POC ABG HCO3 27.1 09/29/18 13:22 POC ABG Total CO2 29 09/29/18 13:22 POC ABG O2 Sat 96 09/29/18 13:22 POC ABG Base Excess 2 09/29/18 13:22 FiO2 25 % 09/29/18 13:22 Sodium 150 mmol/L (137-145) H 09/30/18 05:19 Potassium 3.7 mmol/L (3.6-5.0) 09/30/18 05:19 Chloride 115.2 mmol/L (98-107) H 09/30/18 05:19 Carbon Dioxide 25 mmol/L (22-30) 09/30/18 05:19 Anion Gap 14 mmol/L 09/30/18 05:19 BUN 19 mg/dL (9-20) 09/30/18 05:19 Creatinine 0.9 mg/dL (0.8-1.5) 09/30/18 05:19 Estimated GFR > 60 ml/min 09/30/18 05:19 BUN/Creatinine Ratio 21 % 09/30/18 05:19 Glucose 99 mg/dL (75-100) 09/30/18 05:19 POC Glucose 75 (70-105) 09/30/18 06:10 Lactic Acid 0.90 mmol/L (0.7-2.0) 09/11/18 20:17 Calcium 7.9 mg/dL (8.4-10.2) L 09/30/18 05:19 Phosphorus 3.10 mg/dL (2.5-4.5) D 09/27/18 04:11 Magnesium 1.80 mg/dL (1.7-2.3) 09/26/18 06:15 Total Bilirubin < 0.20 mg/dL (0.1-1.2) 09/29/18 05:00 Direct Bilirubin < 0.2 mg/dL (0-0.2) 09/13/18 07:31 AST 69 units/L (5-40) H 09/29/18 05:00 ALT 110 units/L (7-56) H 09/29/18 05:00 Alkaline Phosphatase 60 units/L (35-129) 09/29/18 05:00 Ammonia 47.0 umol/L (25-60) 09/16/18 11:41 Total Creatine Kinase 685 units/L (55-170) H 09/21/18 04:25 CK-MB (CK-2) 3.5 ng/mL (0.0-4.0) 09/21/18 04:25 CK-MB (CK-2) Rel Index 0.5 (0-4) 09/21/18 04:25 NT-Pro-B Natriuret Pep 145.9 pg/mL (0-450) 09/18/18 16:07 Total Protein 5.2 g/dL (6.3-8.2) L 09/29/18 05:00 Albumin 1.9 g/dL (3.9-5) L 09/29/18 05:00 Albumin/Globulin Ratio 0.6 % 09/29/18 05:00 Vitamin B12 934.5 pg/mL (211-911) H 09/16/18 11:41 TSH 5.190 mlU/mL (0.270-4.200) H 09/18/18 12:46 Free T4 0.75 ng/dL (0.76-1.46) L 09/18/18 12:46 Urine Color [place] (Yellow) 09/11/18 Unknown Urine Turbidity Clear (Clear) 09/11/18 Unknown Urine pH 5.0 (5.0-7.0) 09/11/18 Unknown Ur Specific [place] 1.016 (1.003-1.030) 09/11/18 Unknown Urine Protein <15 mg/dl mg/dL (Negative) 09/11/18 Unknown Urine Glucose (UA) Neg mg/dL (Negative) 09/11/18 Unknown Urine Ketones Neg mg/dL (Negative) 09/11/18 Unknown Urine Blood Sm (Negative) 09/11/18 Unknown Urine Nitrite Neg (Negative) 09/11/18 Unknown Urine Bilirubin Neg (Negative) 09/11/18 Unknown Urine Urobilinogen < 2.0 mg/dL (<2.0) 09/11/18 Unknown Ur Leukocyte Esterase Neg (Negative) 09/11/18 Unknown Urine WBC (Auto) 1.0 /HPF (0.0-6.0) 09/11/18 Unknown Urine RBC (Auto) 3.0 /HPF (0.0-6.0) 09/11/18 Unknown Urine Mucus Few /HPF 09/11/18 Unknown CSF Appearance Clear 09/19/18 15:00 CSF Color Colorless 09/19/18 15:00 CSF WBC 4 /mm3 (1-10) 09/19/18 15:00 CSF RBC 583 /mm3 (0-0) 09/19/18 15:00 CSF Seg Neutrophils 21.4 % (0-6) 09/19/18 15:00 CSF Lymphocytes % 71.4 % (40-80) 09/19/18 15:00 CSF Reactive Lymphs 0 % 09/19/18 15:00 CSF Monocytes % 7.1 % (15-45) 09/19/18 15:00 CSF Eosinophils % 0 % 09/19/18 15:00 CSF Basophils 0 % 09/19/18 15:00 CSF Pathologist Review C 09/19/18 15:00 CSF Glucose 32 mg/dL 09/19/18 15:00 CSF Total Protein 123 mg/dL 09/19/18 15:00 CSF VDRL Reactive 1:4 (Nonreactive) H 09/19/18 15:00 Vancomycin Trough 14.3 ug/mL (5.0-20.0) 09/25/18 14:45 Urine Opiates Screen Presumptive negative 09/17/18 15:52 Urine Methadone Screen Presumptive negative 09/17/18 15:52 Ur Barbiturates Screen Presumptive negative 09/17/18 15:52 Ur Phencyclidine Scrn Presumptive negative 09/17/18 15:52 Ur Amphetamines Screen Presumptive negative 09/17/18 15:52 U Benzodiazepines Scrn Presumptive negative 09/17/18 15:52 Urine Cocaine Screen Presumptive negative 09/17/18 15:52 U Marijuana (THC) Screen Presumptive negative 09/17/18 15:52 Drugs of Abuse Note Disclamer 09/17/18 15:52 Lymph Enumerat CD4/CD8 0.01 (0.86-5.00) L 09/13/18 12:29 % CD3 Cells 71 % (57-85) 09/13/18 12:29 Absolute CD3 Count 220 cells/uL (840-3060) L 09/13/18 12:29 % CD4 Cells 1 % (30-61) L 09/13/18 12:29 Absolute CD4 Count 4 cells/uL (490-1740) L 09/13/18 12:29 % CD8 Cells 70 % (12-42) H 09/13/18 12:29 Absolute CD8 Count 216 cells/uL (180-1170) 09/13/18 12:29 % CD19 Cells 17 % (6-29) 09/13/18 12:29 Absolute CD19 Count 54 cells/uL (110-660) L 09/13/18 12:29 RPR Titer 1:16 09/13/18 12:29 RPR Reactive (Nonreactive) 09/13/18 12:29 T.pallidum Ab (FTA-ABS) Reactive (Nonreactive) H 09/14/18 16:34 C. difficile Toxin A&B Negative (Negative) 09/12/18 05:30 CMV DNA PCR log copy manager/mL See scanned result 09/26/18 06:15 Hepatitis A IgM Ab Non-reactive (NonReactive) 09/13/18 12:29 Hep Bs Antigen Non-reactive (Negative) 09/13/18 12:29 Hep B Core IgM Ab Non-reactive (NonReactive) 09/13/18 12:29 Hepatitis C Antibody Non-reactive (NonReactive) 09/13/18 12:29 HIV-1 Antibody See scanned result 09/11/18 19:14 HIV-1 RNA PCR copies/ml 38401 Copies/mL H 09/13/18 12:29 HIV-1 RNA (PCR) log 4.71 Log cps/mL H 09/13/18 12:29 HIV-2 Ab (Immunoblot) See scanned result 09/11/18 19:14 HIV 1&2 Antibody Rapid Reactive (Non React) 09/11/18 19:14 HIV P24 Antigen Non react (Non React) 09/11/18 19:14 Influenza A (Rapid) Negative (Negative) 09/13/18 16:05 Influenza A (RT-PCR) Negative (Negative) 09/13/18 16:05 Influenza B (Rapid) Negative (Negative) 09/13/18 16:05 Influenza B (RT-PCR) Negative (Negative) 09/13/18 16:05 Toxoplasma IgG Ab <7.20 IU/mL (<7.20) 09/16/18 12:09 Miscellaneous Test see below 09/21/18 03:55 Nutrition/Malnutrition Assess - Dietary Evaluation Nutrition/Malnutrition Findings: Nutrition Notes Start: 09/12/18 17:45 Freq: Status: Active Protocol: Document 09/28/18 10:40 CT (Rec: 09/28/18 11:48 CT [id number]) Co-Sign 09/28/18 10:40 NHALL Nutrition Notes Initial or Follow up Brief Note Current Diet TF- Vital High Protein at 70ml /hr Subjective/Other Information Pt continues to be intubated. TF running at goal (70ml). Nutrition Intervention Follow-Up By: 09/30/18 Additional Comments F/U: reassesment
[2018-09-30] MEDS: CORDARONE PO SCH ×2 (09:50→23:08)
[2018-09-30] MEDS: DIFLUCAN 200 ML IV SCH (09:50)
[2018-09-30] MEDS: MEPRON PO SCH ×2 (09:50→23:13)
[2018-09-30] MEDS: PEPCID PO SCH ×2 (09:50→23:08)
[2018-09-30] MEDS: ROCEPHIN/NS 2 GM/100 ML 2 GM/100 ML BAG IV SCH ×2 (09:51→23:08)
--- NOTE | 2018-09-30 10:44 | Progress Note ---
Assessment and Plan Cultures: 09/11/2018 blood culture: no growth 09/13/2018 serum cryptococcus ag neg 09/14/2018 CSF cryptococcus ag neg 09/14/2018 stool Nona 09/15/2018 stool +Giardia ag 09/19/2018 CSF cryptococcus ag neg 09/21/2018 tracheal aspirate culture: Nona albicans 09/23/2018 blood culture: No growth 09/23/2018 Fungal blood culture: no growth thus far A/P: 33 y/o male with no PMH; admitted on 09/11/2018 due to 4 days-AMS/behavioral changes, nausea, vomiting, diarrhea, weight loss and cough: 1) Low grade fevers: shock resolved, fever also seems to have resolved. ?HIV related, v/s CMV related. Etiology unclear. Cultures have negative thus far. remains on ceftriaxone, flagyl for now. 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 WBC worse today, could be from CMV v/s ganciclovir. Called lab and spoke to label drier today, F/U CMV DNA PCR 09/26/2018 is 710K, 5.85 log. Generally, we do not a significant change in the log value in the first week. Transaminitis could be from CMV v/s shock liver, much improved. 3) Acute respiratory failure: still on the vent, mainly due to mental status issues. PJP DFA negative. 4) Acute encephalopathy: possibly from neurosyphilis v/s CMV encephalitis v/s metabolic etiology. Of note, MRI did not show ventriculitis. Blood CMV DNA PCR = 1,058,978. CSF YAYO virus DNA PCR neg. Toxo IgG negative. Hypernatremia, Na up to 150 today. 5) Neurosyphilis: CSF VDRL positive, was on Penicillin G, given decline in clinical condition, and to avoid double beta-lactam abx and increased seizure risk, continue high dose IV Ceftriaxone which does have activity against Treponema pallidum. 6) Diarrhea: likely due to Giardiasis as Giardia antigen positive in stool, in immunocompromised patient, on flagyl, will complete 21 days. 7) Oral candidiasis: better, on fluconazole. 8) A.fib with RVR: cardiology following. On Amiodarone. 9) HIV/AIDS: newly diagnosed. Risk factor is MSM behavior. CD4=4. VL=50,700. 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 Will start him on Tenofovir, Emtricitabine + Dolutegravir watch closely for IRIS. 10) Neutropenia/thrombocytopenia: possibly from HIV/CMV myelosuppression +/- sepsis. Can also get worse from ganciclovir. r/o disseminated MAC, thus far cultures negative. 11) MAL: resolved. creatinine stable and improved. Recs: - F/U CMV DNA PCR 09/26/2018 is 710K, 5.85 log. Generally, we do not a significant change in the log value in the first week. Continue IV Ganciclovir 5 mg/kg q12 hrs, will need to continue till CMV PCR is down to <200. - continue IV Ceftriaxone 2 gm q12 hrs - continue IV Flagyl for diarrhea from Giardiasis, complete ~14-21 days - continue atovaquone and azithromycin prophylaxis - continue fluconazole D17, will plan for 21 days of therapy to also cover for esophagitis and then low dose and continue as prophylaxis - will need repeat CMV DNA PCR on Wednesday - HIV Genotype showed AZT resistance 219E mutation - TAMS, suggestive of possible prior treatment and perhaps resistant HIV, very likely he also has an archived M184. Will start him on Tenofovir, Emtricitabine + Dolutegravir watch closely for IRIS - monitor daily CBC, BMP Will follow. Please call with questions. Maurizio Lopez MD [facility] C: [phone] O: [phone] F: [phone] Subjective Date of service: 09/30/18 Principal diagnosis: Severe sepsis; Ac hypoxemic Resp failure; [place]. Pneumonia; Ac encephalopathy Interval history: No fever. Remains on the ventilator. WBC down to 0.9. Diarrhea + but stable. Objective - Exam Narrative Exam: Physical Exam: Constitutional: intubated, on the event, awake but doesn't consistently follow commands Head, Ears, Nose: Normocephalic, atraumatic. Eyes: Conjunctivae/corneas clear. No icterus. No ptosis. Neck: Supple, no meningeal signs Oral: intubated Cardiovascular: S1, S2 normal. Respiratory: Good air entry, clear to auscultation bilaterally GI: Soft, bowel sounds normal. No peritoneal signs, Rectal tube + with diarrhea Musculoskeletal: No pedal edema, no cyanosis. Skin: No rash or abscess Hem/Lymphatic: No palpable cervical or supraclavicular nodes. No lymphangitis Psych: no agitation Neurological: intubated, on the vent, awake, but doesn't consistently follow commands - Constitutional Vitals: Vital Signs Temp Pulse Resp BP Pulse Ox 98.7 F 85 13 130/76 100 09/30/18 08:00 09/30/18 09:31 09/30/18 08:31 09/30/18 09:31 09/30/18 09:31 Temperature -Last 24 Hours Temperature 98.7 F Temperature 97.3 F Temperature 97.8 F Temperature 97.8 F Temperature 100.5 F Temperature 100.3 F - Labs CBC & Chem 7: 09/30/18 05:19 09/30/18 05:19 Labs: Abnormal lab results 09/29/18 09/30/18 09/30/18 Range/Units 13:22 05:19 05:19 WBC 0.9 L* (4.5-11.0) K/mm3 RBC 3.03 L (3.65-5.03) M/mm3 Hgb 8.6 L (11.8-15.2) gm/dl Hct 25.9 L (35.5-45.6) % POC ABG pCO2 46.9 H (35-45) Sodium 150 H (137-145) mmol/L Chloride 115.2 H (98-107) mmol/L Calcium 7.9 L (8.4-10.2) mg/dL
[2018-09-30] MEDS ORDERED: EMTRIVA 200 MG, VIREAD 300 MG PO SCH (11:00)
--- NOTE | 2018-09-30 11:18 | Progress Note ---
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 He did not use condom consistently. - CD4=4 - VL=50,700 Elevated LFTs: resolved Neutropenia/thrombocytopenia Hypernatremia -VAP bundle addressed -Lung protective strategies -Antimicrobials per ID, HAART instituted by ID today -Increase free water flushes from 100ml to 250ml, follow up BMP - continue supplemental oxygen to keep sats > 90% - continue bronchodilators with pulmonary - continue daily SBT's, at this time mental status precludes liberation from MVS - monitor for drug-drug interactions - continue enteral nutrition as tolerated - PT/OT/ROM exercises as tolerated - mobility protocol for pressure ulcer prevention - continue GI & VTE prophylaxis -Re-culture if any fevers -Replete electrolytes as indicated -May benefit from Neupogen - continue other care per attending / other consultants The high probability of a clinically significant, sudden or life threatening deterioration of the [cardiac, respiratory and neurologic] system(s) required my full and direct attention, intervention and personal management. The aggregate critical care time was [30] minutes. This time is in addition to time spent performing reported procedures but includes the following: [x] Data Review and interpretation [x] Patient assessment and monitoring of vital signs [x] Documentation Subjective Date of service: 09/30/18 Principal diagnosis: Severe sepsis; Ac hypoxemic Resp failure; [place]. Pneumonia; Ac encephalopathy Interval history: 33 y/o male with no PMH; admitted on 09/11/2018 due to 4 days-AMS/behavioral changes, nausea, voimiting, diarrhea, weight loss and cough: Patient is seen today for: Severe sepsis (present on admission with fever, tachycardia, hypotension and elevated lactate); Acute hypoxemic Respiratory failure; Bilateral pneumonia; Acute encephalopathy (Toxic / Metabolic); Atrial Fibrillation with RVR; HIV-AIDS Seen and examined at bedside; 24hour events reviewed; nursing and respiratory care staff consulted; no adverse overnight events reported to me; resting peacefully in bed; generalized edema with ongoing diarrhea. no further fevers overnight, Oral secretions, awake but not obeying commands. Remains on MVS, PSV 10/6 with tidal volumes of about 350ml, not in any distress Objective Vital Signs - 12hr 09/29/18 09/29/18 09/30/18 23:26 23:30 00:00 Temperature 97.8 F Pulse Rate 91 H 89 87 Pulse Rate [ 90 From Monitor] Pulse Rate [ Throughout] Respiratory 14 16 19 Rate Respiratory Rate [ Throughout] Blood Pressure 134/79 134/79 125/71 O2 Sat by Pulse 100 100 100 Oximetry 09/30/18 09/30/18 09/30/18 00:07 00:30 01:00 Temperature Pulse Rate 86 89 84 Pulse Rate [ From Monitor] Pulse Rate [ Throughout] Respiratory 14 14 Rate Respiratory Rate [ Throughout] Blood Pressure 125/71 125/71 O2 Sat by Pulse 100 100 100 Oximetry 09/30/18 09/30/18 09/30/18 01:31 02:00 02:31 Temperature Pulse Rate 86 92 H 83 Pulse Rate [ From Monitor] Pulse Rate [ Throughout] Respiratory 12 12 16 Rate Respiratory Rate [ Throughout] Blood Pressure 125/71 149/89 149/89 O2 Sat by Pulse 100 100 100 Oximetry 09/30/18 09/30/18 09/30/18 03:00 03:19 03:31 Temperature Pulse Rate 84 83 83 Pulse Rate [ From Monitor] Pulse Rate [ Throughout] Respiratory 18 15 Rate Respiratory Rate [ Throughout] Blood Pressure 149/89 137/74 137/74 O2 Sat by Pulse 100 100 Oximetry 09/30/18 09/30/18 09/30/18 04:00 04:17 04:31 Temperature 97.3 F L Pulse Rate 86 87 82 Pulse Rate [ 83 From Monitor] Pulse Rate [ Throughout] Respiratory 15 13 Rate Respiratory Rate [ Throughout] Blood Pressure 137/74 133/80 O2 Sat by Pulse 100 100 100 Oximetry 09/30/18 09/30/18 09/30/18 05:00 05:31 06:00 Temperature Pulse Rate 87 84 82 Pulse Rate [ From Monitor] Pulse Rate [ Throughout] Respiratory 18 17 13 Rate Respiratory Rate [ Throughout] Blood Pressure 120/68 120/68 120/68 O2 Sat by Pulse 100 100 100 Oximetry 09/30/18 09/30/18 09/30/18 06:31 07:00 07:31 Temperature Pulse Rate 86 83 84 Pulse Rate [ From Monitor] Pulse Rate [ Throughout] Respiratory 14 16 18 Rate Respiratory Rate [ Throughout] Blood Pressure 125/73 116/65 116/65 O2 Sat by Pulse 100 100 100 Oximetry 09/30/18 09/30/18 09/30/18 07:39 07:41 07:44 Temperature Pulse Rate 90 88 Pulse Rate [ From Monitor] Pulse Rate [ 90 Throughout] Respiratory 22 Rate Respiratory 24 Rate [ Throughout] Blood Pressure 116/65 116/65 O2 Sat by Pulse 100 100 Oximetry 09/30/18 09/30/18 09/30/18 07:56 08:00 08:31 Temperature 98.7 F Pulse Rate 83 82 Pulse Rate [ 84 From Monitor] Pulse Rate [ 90 Throughout] Respiratory 20 13 Rate Respiratory 24 Rate [ Throughout] Blood Pressure 127/77 127/77 O2 Sat by Pulse 100 100 Oximetry 09/30/18 09/30/18 08:45 09:31 Temperature Pulse Rate 84 85 Pulse Rate [ From Monitor] Pulse Rate [ Throughout] Respiratory Rate Respiratory Rate [ Throughout] Blood Pressure 127/77 130/76 O2 Sat by Pulse 100 Oximetry Constitutional: no acute distress, alert, other (orally intubated ETT at 23cm) Eyes: non-icteric, other ENT: oropharynx moist, other (ETT 23 cm NIKA) Neck: supple, no lymphadenopathy Effort: mildly labored Ascultation: Bilateral: rales, rhonchi Percussion: Bilateral: not dull Cardiovascular: regular rate and rhythm, other (S1,S2, no murmurs, gallps or rubs) Gastrointestinal: normoactive bowel sounds, soft, non-tender, non-distended Integumentary: rash Extremities: no cyanosis, pulses normal, no ischemia or petechiae, edema Neurologic: pupils equal and round, motor strength normal and (weak though) Psychiatric: other (unable to assess) CBC and BMP: 09/30/18 05:19 09/30/18 05:19 ABG, PT/INR, D-dimer: ABG POC ABG pH 7.370 (7.35-7.45) 09/29/18 13:22 POC ABG pCO2 46.9 (35-45) H 09/29/18 13:22 POC ABG pO2 86 (80-105) 09/29/18 13:22 POC ABG HCO3 27.1 09/29/18 13:22 POC ABG Total CO2 29 09/29/18 13:22 POC ABG O2 Sat 96 09/29/18 13:22 PT/INR, D-dimer PT 19.9 Sec. (12.2-14.9) H 09/21/18 15:00 INR 1.65 (0.87-1.13) H 09/21/18 15:00 Abnormal lab findings: Abnormal Labs 09/11/18 09/11/18 09/11/18 18:00 18:00 18:00 WBC 1.9 L* RBC Hgb Hct Plt Count 130 L Seg Neuts % (Manual) Lymphocytes % (Manual) Monocytes % (Manual) 16.0 H Eosinophils % (Manual) Basophils % (Manual) Nucleated RBC % Seg Neutrophils # Man 0.9 L Abs Lymphs (Manual) Lymphocytes # (Manual) 0.5 L PT INR APTT Heparin Anti-Xa Level POC ABG pH POC ABG pCO2 POC ABG pO2 Sodium 131 L Potassium Chloride Carbon Dioxide 17 L BUN 21 H Creatinine Glucose 126 H POC Glucose Lactic Acid 2.60 H* Calcium 8.1 L Phosphorus AST 123 H ALT 115 H Total Creatine Kinase Total Protein Albumin 3.0 L Vitamin B12 TSH Free T4 CSF VDRL Lymph Enumerat CD4/CD8 Absolute CD3 Count % CD4 Cells Absolute CD4 Count % CD8 Cells Absolute CD19 Count T.pallidum Ab (FTA-ABS) HIV-1 RNA PCR copies/ml HIV-1 RNA (PCR) log Miscellaneous Test 09/11/18 09/13/18 09/13/18 19:01 04:28 07:31 WBC 2.0 L RBC Hgb Hct Plt Count 116 L Seg Neuts % (Manual) Lymphocytes % (Manual) Monocytes % (Manual) 8.0 H Eosinophils % (Manual) Basophils % (Manual) Nucleated RBC % Seg Neutrophils # Man 1.0 L Abs Lymphs (Manual) Lymphocytes # (Manual) 0.5 L PT INR APTT Heparin Anti-Xa Level POC ABG pH POC ABG pCO2 POC ABG pO2 Sodium Potassium Chloride 110.4 H Carbon Dioxide 19 L BUN Creatinine Glucose POC Glucose Lactic Acid 3.70 H* Calcium 7.9 L Phosphorus AST ALT Total Creatine Kinase Total Protein Albumin Vitamin B12 TSH Free T4 CSF VDRL Lymph Enumerat CD4/CD8 Absolute CD3 Count % CD4 Cells Absolute CD4 Count % CD8 Cells Absolute CD19 Count T.pallidum Ab (FTA-ABS) HIV-1 RNA PCR copies/ml HIV-1 RNA (PCR) log Miscellaneous Test 09/13/18 09/13/18 09/13/18 07:31 12:29 12:29 WBC RBC Hgb Hct Plt Count Seg Neuts % (Manual) Lymphocytes % (Manual) Monocytes % (Manual) Eosinophils % (Manual) Basophils % (Manual) Nucleated RBC % Seg Neutrophils # Man Abs Lymphs (Manual) 309 L Lymphocytes # (Manual) PT INR APTT Heparin Anti-Xa Level POC ABG pH POC ABG pCO2 POC ABG pO2 Sodium Potassium Chloride Carbon Dioxide BUN Creatinine Glucose POC Glucose Lactic Acid Calcium Phosphorus AST 70 H ALT 68 H Total Creatine Kinase Total Protein Albumin 2.5 L Vitamin B12 TSH Free T4 CSF VDRL Lymph Enumerat CD4/CD8 0.01 L Absolute CD3 Count 220 L % CD4 Cells 1 L Absolute CD4 Count 4 L % CD8 Cells 70 H Absolute CD19 Count 54 L T.pallidum Ab (FTA-ABS) HIV-1 RNA PCR copies/ml 20795 H HIV-1 RNA (PCR) log 4.71 H Miscellaneous Test 09/13/18 09/14/18 09/14/18 12:29 07:17 16:34 WBC RBC Hgb Hct Plt Count Seg Neuts % (Manual) Lymphocytes % (Manual) Monocytes % (Manual) Eosinophils % (Manual) Basophils % (Manual) Nucleated RBC % Seg Neutrophils # Man Abs Lymphs (Manual) Lymphocytes # (Manual) PT INR APTT Heparin Anti-Xa Level POC ABG pH POC ABG pCO2 POC ABG pO2 Sodium Potassium 3.4 L Chloride Carbon Dioxide 18 L BUN Creatinine Glucose 104 H POC Glucose Lactic Acid Calcium 7.6 L Phosphorus AST 49 H ALT Total Creatine Kinase Total Protein Albumin 2.5 L Vitamin B12 TSH Free T4 CSF VDRL Lymph Enumerat CD4/CD8 Absolute CD3 Count % CD4 Cells Absolute CD4 Count % CD8 Cells Absolute CD19 Count T.pallidum Ab (FTA-ABS) Reactive H HIV-1 RNA PCR copies/ml HIV-1 RNA (PCR) log Miscellaneous Test Flexitest 1 H 09/15/18 09/15/18 09/15/18 05:05 05:05 Unknown WBC 1.6 L* RBC Hgb 10.4 L Hct 31.1 L D Plt Count 113 L Seg Neuts % (Manual) Lymphocytes % (Manual) Monocytes % (Manual) Eosinophils % (Manual) Basophils % (Manual) Nucleated RBC % Seg Neutrophils # Man Abs Lymphs (Manual) Lymphocytes # (Manual) PT INR APTT Heparin Anti-Xa Level POC ABG pH POC ABG pCO2 POC ABG pO2 Sodium Potassium Chloride 107.9 H Carbon Dioxide 18 L BUN 6 L Creatinine Glucose POC Glucose Lactic Acid Calcium 7.4 L Phosphorus AST ALT Total Creatine Kinase Total Protein Albumin Vitamin B12 TSH Free T4 CSF VDRL Reactive 1:8 H Lymph Enumerat CD4/CD8 Absolute CD3 Count % CD4 Cells Absolute CD4 Count % CD8 Cells Absolute CD19 Count T.pallidum Ab (FTA-ABS) HIV-1 RNA PCR copies/ml HIV-1 RNA (PCR) log Miscellaneous Test 09/16/18 09/16/18 09/16/18 06:55 11:41 11:41 WBC 2.8 L RBC Hgb 10.9 L Hct 33.5 L Plt Count 135 L Seg Neuts % (Manual) Lymphocytes % (Manual) Monocytes % (Manual) Eosinophils % (Manual) Basophils % (Manual) Nucleated RBC % Seg Neutrophils # Man Abs Lymphs (Manual) Lymphocytes # (Manual) PT INR APTT Heparin Anti-Xa Level POC ABG pH POC ABG pCO2 POC ABG pO2 Sodium Potassium Chloride Carbon Dioxide BUN Creatinine Glucose POC Glucose Lactic Acid Calcium Phosphorus AST ALT Total Creatine Kinase Total Protein Albumin Vitamin B12 TSH 4.210 H Free T4 0.72 L CSF VDRL Lymph Enumerat CD4/CD8 Absolute CD3 Count % CD4 Cells Absolute CD4 Count % CD8 Cells Absolute CD19 Count T.pallidum Ab (FTA-ABS) HIV-1 RNA PCR copies/ml HIV-1 RNA (PCR) log Miscellaneous Test 09/16/18 09/16/18 09/17/18 11:41 15:43 05:13 WBC 2.0 L RBC Hgb 10.9 L Hct 32.7 L Plt Count Seg Neuts % (Manual) Lymphocytes % (Manual) Monocytes % (Manual) Eosinophils % (Manual) Basophils % (Manual) Nucleated RBC % Seg Neutrophils # Man Abs Lymphs (Manual) Lymphocytes # (Manual) PT INR APTT Heparin Anti-Xa Level POC ABG pH POC ABG pCO2 29.3 L POC ABG pO2 70 L Sodium Potassium Chloride Carbon Dioxide BUN Creatinine Glucose POC Glucose Lactic Acid Calcium Phosphorus AST ALT Total Creatine Kinase Total Protein Albumin Vitamin B12 934.5 H TSH Free T4 CSF VDRL Lymph Enumerat CD4/CD8 Absolute CD3 Count % CD4 Cells Absolute CD4 Count % CD8 Cells Absolute CD19 Count T.pallidum Ab (FTA-ABS) HIV-1 RNA PCR copies/ml HIV-1 RNA (PCR) log Miscellaneous Test 09/17/18 09/17/18 09/18/18 05:13 21:57 12:46 WBC RBC Hgb Hct Plt Count Seg Neuts % (Manual) Lymphocytes % (Manual) Monocytes % (Manual) Eosinophils % (Manual) Basophils % (Manual) Nucleated RBC % Seg Neutrophils # Man Abs Lymphs (Manual) Lymphocytes # (Manual) PT INR APTT Heparin Anti-Xa Level POC ABG pH POC ABG pCO2 POC ABG pO2 Sodium Potassium Chloride 107.2 H Carbon Dioxide 21 L BUN 3 L Creatinine 0.7 L Glucose POC Glucose 108 H Lactic Acid Calcium 7.9 L Phosphorus AST ALT Total Creatine Kinase Total Protein 6.1 L Albumin 2.6 L Vitamin B12 TSH Free T4 0.75 L CSF VDRL Lymph Enumerat CD4/CD8 Absolute CD3 Count % CD4 Cells Absolute CD4 Count % CD8 Cells Absolute CD19 Count T.pallidum Ab (FTA-ABS) HIV-1 RNA PCR copies/ml HIV-1 RNA (PCR) log Miscellaneous Test 09/18/18 09/19/18 09/19/18 12:46 04:57 04:57 WBC 2.1 L RBC Hgb 11.4 L Hct 34.2 L Plt Count Seg Neuts % (Manual) Lymphocytes % (Manual) Monocytes % (Manual) Eosinophils % (Manual) Basophils % (Manual) Nucleated RBC % Seg Neutrophils # Man Abs Lymphs (Manual) Lymphocytes # (Manual) PT INR APTT Heparin Anti-Xa Level POC ABG pH POC ABG pCO2 POC ABG pO2 Sodium Potassium Chloride Carbon Dioxide 19 L BUN 6 L Creatinine Glucose POC Glucose Lactic Acid Calcium 7.9 L Phosphorus AST ALT Total Creatine Kinase Total Protein Albumin Vitamin B12 TSH 5.190 H Free T4 CSF VDRL Lymph Enumerat CD4/CD8 Absolute CD3 Count % CD4 Cells Absolute CD4 Count % CD8 Cells Absolute CD19 Count T.pallidum Ab (FTA-ABS) HIV-1 RNA PCR copies/ml HIV-1 RNA (PCR) log Miscellaneous Test 09/19/18 09/19/18 09/20/18 15:00 15:00 05:33 WBC RBC Hgb Hct Plt Count Seg Neuts % (Manual) Lymphocytes % (Manual) Monocytes % (Manual) Eosinophils % (Manual) Basophils % (Manual) Nucleated RBC % Seg Neutrophils # Man Abs Lymphs (Manual) Lymphocytes # (Manual) PT INR APTT Heparin Anti-Xa Level POC ABG pH POC ABG pCO2 POC ABG pO2 Sodium 136 L Potassium Chloride Carbon Dioxide 19 L BUN 7 L Creatinine Glucose POC Glucose Lactic Acid Calcium Phosphorus AST ALT Total Creatine Kinase Total Protein Albumin Vitamin B12 TSH Free T4 CSF VDRL Reactive 1:4 H Lymph Enumerat CD4/CD8 Absolute CD3 Count % CD4 Cells Absolute CD4 Count % CD8 Cells Absolute CD19 Count T.pallidum Ab (FTA-ABS) HIV-1 RNA PCR copies/ml HIV-1 RNA (PCR) log Miscellaneous Test Flexitest 1 H 09/20/18 09/21/18 09/21/18 06:52 01:06 03:49 WBC 2.5 L RBC Hgb Hct Plt Count Seg Neuts % (Manual) Lymphocytes % (Manual) Monocytes % (Manual) Eosinophils % (Manual) Basophils % (Manual) Nucleated RBC % Seg Neutrophils # Man Abs Lymphs (Manual) Lymphocytes # (Manual) PT INR APTT Heparin Anti-Xa Level POC ABG pH 7.159 L POC ABG pCO2 32.9 L 70.0 H POC ABG pO2 62 L 254 H Sodium Potassium Chloride Carbon Dioxide BUN Creatinine Glucose POC Glucose Lactic Acid Calcium Phosphorus AST ALT Total Creatine Kinase Total Protein Albumin Vitamin B12 TSH Free T4 CSF VDRL Lymph Enumerat CD4/CD8 Absolute CD3 Count % CD4 Cells Absolute CD4 Count % CD8 Cells Absolute CD19 Count T.pallidum Ab (FTA-ABS) HIV-1 RNA PCR copies/ml HIV-1 RNA (PCR) log Miscellaneous Test 09/21/18 09/21/18 09/21/18 04:15 04:15 04:25 WBC 3.1 L RBC Hgb 11.6 L Hct Plt Count Seg Neuts % (Manual) Lymphocytes % (Manual) Monocytes % (Manual) 12.0 H Eosinophils % (Manual) Basophils % (Manual) Nucleated RBC % Seg Neutrophils # Man 1.6 L Abs Lymphs (Manual) Lymphocytes # (Manual) 0.5 L PT INR APTT Heparin Anti-Xa Level POC ABG pH POC ABG pCO2 POC ABG pO2 Sodium Potassium 6.1 H* D Chloride Carbon Dioxide 19 L BUN Creatinine Glucose 108 H POC Glucose Lactic Acid Calcium Phosphorus AST ALT Total Creatine Kinase 685 H Total Protein Albumin Vitamin B12 TSH Free T4 CSF VDRL Lymph Enumerat CD4/CD8 Absolute CD3 Count % CD4 Cells Absolute CD4 Count % CD8 Cells Absolute CD19 Count T.pallidum Ab (FTA-ABS) HIV-1 RNA PCR copies/ml HIV-1 RNA (PCR) log Miscellaneous Test 09/21/18 09/21/18 09/21/18 09:59 10:07 11:00 WBC RBC Hgb 11.7 L Hct Plt Count Seg Neuts % (Manual) Lymphocytes % (Manual) Monocytes % (Manual) Eosinophils % (Manual) Basophils % (Manual) Nucleated RBC % Seg Neutrophils # Man Abs Lymphs (Manual) Lymphocytes # (Manual) PT INR APTT Heparin Anti-Xa Level POC ABG pH 7.301 L POC ABG pCO2 POC ABG pO2 109 H Sodium Potassium 6.5 H* Chloride Carbon Dioxide 18 L BUN Creatinine 2.1 H D Glucose POC Glucose Lactic Acid Calcium 8.1 L Phosphorus AST 94 H ALT Total Creatine Kinase Total Protein Albumin 2.8 L Vitamin B12 TSH Free T4 CSF VDRL Lymph Enumerat CD4/CD8 Absolute CD3 Count % CD4 Cells Absolute CD4 Count % CD8 Cells Absolute CD19 Count T.pallidum Ab (FTA-ABS) HIV-1 RNA PCR copies/ml HIV-1 RNA (PCR) log Miscellaneous Test 09/21/18 09/21/18 09/21/18 15:00 21:54 21:54 WBC RBC Hgb Hct Plt Count Seg Neuts % (Manual) Lymphocytes % (Manual) Monocytes % (Manual) Eosinophils % (Manual) Basophils % (Manual) Nucleated RBC % Seg Neutrophils # Man Abs Lymphs (Manual) Lymphocytes # (Manual) PT 19.9 H INR 1.65 H APTT 40.9 H Heparin Anti-Xa Level 0.98 H POC ABG pH POC ABG pCO2 POC ABG pO2 Sodium Potassium 5.2 H Chloride Carbon Dioxide BUN Creatinine Glucose POC Glucose Lactic Acid Calcium Phosphorus AST ALT Total Creatine Kinase Total Protein Albumin Vitamin B12 TSH Free T4 CSF VDRL Lymph Enumerat CD4/CD8 Absolute CD3 Count % CD4 Cells Absolute CD4 Count % CD8 Cells Absolute CD19 Count T.pallidum Ab (FTA-ABS) HIV-1 RNA PCR copies/ml HIV-1 RNA (PCR) log Miscellaneous Test 09/21/18 09/22/18 09/22/18 22:57 03:01 05:27 WBC RBC Hgb Hct Plt Count Seg Neuts % (Manual) Lymphocytes % (Manual) Monocytes % (Manual) Eosinophils % (Manual) Basophils % (Manual) Nucleated RBC % Seg Neutrophils # Man Abs Lymphs (Manual) Lymphocytes # (Manual) PT INR APTT Heparin Anti-Xa Level POC ABG pH POC ABG pCO2 32.7 L POC ABG pO2 Sodium Potassium Chloride Carbon Dioxide BUN Creatinine Glucose POC Glucose 124 H 128 H Lactic Acid Calcium Phosphorus AST ALT Total Creatine Kinase Total Protein Albumin Vitamin B12 TSH Free T4 CSF VDRL Lymph Enumerat CD4/CD8 Absolute CD3 Count % CD4 Cells Absolute CD4 Count % CD8 Cells Absolute CD19 Count T.pallidum Ab (FTA-ABS) HIV-1 RNA PCR copies/ml HIV-1 RNA (PCR) log Miscellaneous Test 09/22/18 09/22/18 09/22/18 07:00 07:00 11:32 WBC 1.8 L* RBC 3.59 L Hgb 10.1 L Hct 30.8 L Plt Count 126 L Seg Neuts % (Manual) Lymphocytes % (Manual) Monocytes % (Manual) Eosinophils % (Manual) Basophils % (Manual) Nucleated RBC % Seg Neutrophils # Man Abs Lymphs (Manual) Lymphocytes # (Manual) PT INR APTT Heparin Anti-Xa Level POC ABG pH POC ABG pCO2 POC ABG pO2 Sodium Potassium Chloride Carbon Dioxide BUN 27 H Creatinine 2.0 H Glucose 128 H POC Glucose 123 H Lactic Acid Calcium 6.9 L Phosphorus AST ALT Total Creatine Kinase Total Protein Albumin Vitamin B12 TSH Free T4 CSF VDRL Lymph Enumerat CD4/CD8 Absolute CD3 Count % CD4 Cells Absolute CD4 Count % CD8 Cells Absolute CD19 Count T.pallidum Ab (FTA-ABS) HIV-1 RNA PCR copies/ml HIV-1 RNA (PCR) log Miscellaneous Test 09/22/18 09/22/18 09/22/18 15:52 18:18 23:52 WBC RBC Hgb Hct Plt Count Seg Neuts % (Manual) Lymphocytes % (Manual) Monocytes % (Manual) Eosinophils % (Manual) Basophils % (Manual) Nucleated RBC % Seg Neutrophils # Man Abs Lymphs (Manual) Lymphocytes # (Manual) PT INR APTT Heparin Anti-Xa Level POC ABG pH POC ABG pCO2 48.7 H POC ABG pO2 Sodium Potassium Chloride Carbon Dioxide BUN Creatinine Glucose POC Glucose 110 H 124 H Lactic Acid Calcium Phosphorus AST ALT Total Creatine Kinase Total Protein Albumin Vitamin B12 TSH Free T4 CSF VDRL Lymph Enumerat CD4/CD8 Absolute CD3 Count % CD4 Cells Absolute CD4 Count % CD8 Cells Absolute CD19 Count T.pallidum Ab (FTA-ABS) HIV-1 RNA PCR copies/ml HIV-1 RNA (PCR) log Miscellaneous Test 09/23/18 09/23/18 09/23/18 04:10 05:55 05:55 WBC RBC Hgb 10.0 L Hct 30.3 L Plt Count 117 L Seg Neuts % (Manual) Lymphocytes % (Manual) Monocytes % (Manual) Eosinophils % (Manual) Basophils % (Manual) Nucleated RBC % Seg Neutrophils # Man Abs Lymphs (Manual) Lymphocytes # (Manual) PT INR APTT Heparin Anti-Xa Level 0.26 L POC ABG pH POC ABG pCO2 POC ABG pO2 144 H Sodium Potassium Chloride Carbon Dioxide BUN Creatinine Glucose POC Glucose Lactic Acid Calcium Phosphorus AST ALT Total Creatine Kinase Total Protein Albumin Vitamin B12 TSH Free T4 CSF VDRL Lymph Enumerat CD4/CD8 Absolute CD3 Count % CD4 Cells Absolute CD4 Count % CD8 Cells Absolute CD19 Count T.pallidum Ab (FTA-ABS) HIV-1 RNA PCR copies/ml HIV-1 RNA (PCR) log Miscellaneous Test 09/23/18 09/23/18 09/23/18 08:10 08:10 23:57 WBC 1.3 L* RBC 3.53 L Hgb 9.9 L Hct 30.0 L Plt Count 119 L Seg Neuts % (Manual) Lymphocytes % (Manual) Monocytes % (Manual) Eosinophils % (Manual) Basophils % (Manual) Nucleated RBC % Seg Neutrophils # Man Abs Lymphs (Manual) Lymphocytes # (Manual) PT INR APTT Heparin Anti-Xa Level POC ABG pH POC ABG pCO2 POC ABG pO2 Sodium Potassium Chloride Carbon Dioxide BUN Creatinine Glucose 122 H POC Glucose 115 H Lactic Acid Calcium 6.9 L Phosphorus AST ALT Total Creatine Kinase Total Protein Albumin Vitamin B12 TSH Free T4 CSF VDRL Lymph Enumerat CD4/CD8 Absolute CD3 Count % CD4 Cells Absolute CD4 Count % CD8 Cells Absolute CD19 Count T.pallidum Ab (FTA-ABS) HIV-1 RNA PCR copies/ml HIV-1 RNA (PCR) log Miscellaneous Test 09/24/18 09/24/18 09/24/18 12:04 14:42 18:10 WBC RBC Hgb Hct Plt Count Seg Neuts % (Manual) Lymphocytes % (Manual) Monocytes % (Manual) Eosinophils % (Manual) Basophils % (Manual) Nucleated RBC % Seg Neutrophils # Man Abs Lymphs (Manual) Lymphocytes # (Manual) PT INR APTT Heparin Anti-Xa Level 0.76 H POC ABG pH POC ABG pCO2 POC ABG pO2 Sodium Potassium Chloride Carbon Dioxide BUN Creatinine Glucose POC Glucose 111 H 138 H Lactic Acid Calcium Phosphorus AST ALT Total Creatine Kinase Total Protein Albumin Vitamin B12 TSH Free T4 CSF VDRL Lymph Enumerat CD4/CD8 Absolute CD3 Count % CD4 Cells Absolute CD4 Count % CD8 Cells Absolute CD19 Count T.pallidum Ab (FTA-ABS) HIV-1 RNA PCR copies/ml HIV-1 RNA (PCR) log Miscellaneous Test 09/25/18 09/25/18 09/25/18 03:45 04:24 14:20 WBC RBC Hgb 9.7 L Hct 29.4 L Plt Count 104 L Seg Neuts % (Manual) Lymphocytes % (Manual) Monocytes % (Manual) Eosinophils % (Manual) Basophils % (Manual) Nucleated RBC % Seg Neutrophils # Man Abs Lymphs (Manual) Lymphocytes # (Manual) PT INR APTT Heparin Anti-Xa Level POC ABG pH 7.460 H POC ABG pCO2 32.9 L POC ABG pO2 Sodium Potassium 3.5 L Chloride 110.3 H Carbon Dioxide BUN Creatinine Glucose 105 H POC Glucose Lactic Acid Calcium 6.7 L Phosphorus AST 633 H ALT 481 H Total Creatine Kinase Total Protein 4.8 L D Albumin 1.9 L Vitamin B12 TSH Free T4 CSF VDRL Lymph Enumerat CD4/CD8 Absolute CD3 Count % CD4 Cells Absolute CD4 Count % CD8 Cells Absolute CD19 Count T.pallidum Ab (FTA-ABS) HIV-1 RNA PCR copies/ml HIV-1 RNA (PCR) log Miscellaneous Test 09/26/18 09/26/18 09/26/18 06:15 06:15 10:43 WBC 1.2 L* RBC 3.32 L Hgb 9.2 L Hct 28.6 L Plt Count 97 L Seg Neuts % (Manual) 24.0 L Lymphocytes % (Manual) 43.0 H Monocytes % (Manual) 19.0 H Eosinophils % (Manual) 8.0 H Basophils % (Manual) 2.0 H Nucleated RBC % 3.0 H Seg Neutrophils # Man 0.0 L Abs Lymphs (Manual) Lymphocytes # (Manual) 0.0 L PT INR APTT Heparin Anti-Xa Level POC ABG pH 7.459 H POC ABG pCO2 POC ABG pO2 141 H Sodium Potassium Chloride 112.8 H Carbon Dioxide BUN Creatinine Glucose 110 H POC Glucose Lactic Acid Calcium 7.0 L Phosphorus 0.90 L* AST 362 H ALT 360 H Total Creatine Kinase Total Protein 4.9 L Albumin 1.5 L Vitamin B12 TSH Free T4 CSF VDRL Lymph Enumerat CD4/CD8 Absolute CD3 Count % CD4 Cells Absolute CD4 Count % CD8 Cells Absolute CD19 Count T.pallidum Ab (FTA-ABS) HIV-1 RNA PCR copies/ml HIV-1 RNA (PCR) log Miscellaneous Test 09/26/18 09/27/18 09/28/18 13:56 04:11 07:49 WBC RBC Hgb 9.1 L Hct 29.1 L Plt Count 96 L Seg Neuts % (Manual) Lymphocytes % (Manual) Monocytes % (Manual) Eosinophils % (Manual) Basophils % (Manual) Nucleated RBC % Seg Neutrophils # Man Abs Lymphs (Manual) Lymphocytes # (Manual) PT INR APTT Heparin Anti-Xa Level POC ABG pH POC ABG pCO2 POC ABG pO2 Sodium 146 H Potassium Chloride 111.6 H Carbon Dioxide BUN Creatinine Glucose POC Glucose 135 H Lactic Acid Calcium 7.4 L Phosphorus AST ALT Total Creatine Kinase Total Protein Albumin Vitamin B12 TSH Free T4 CSF VDRL Lymph Enumerat CD4/CD8 Absolute CD3 Count % CD4 Cells Absolute CD4 Count % CD8 Cells Absolute CD19 Count T.pallidum Ab (FTA-ABS) HIV-1 RNA PCR copies/ml HIV-1 RNA (PCR) log Miscellaneous Test 09/28/18 09/29/18 09/29/18 10:43 05:00 05:00 WBC 1.2 L* RBC 3.13 L Hgb 8.6 L Hct 27.3 L Plt Count 137 L Seg Neuts % (Manual) Lymphocytes % (Manual) Monocytes % (Manual) 16.0 H Eosinophils % (Manual) Basophils % (Manual) Nucleated RBC % 4.0 H Seg Neutrophils # Man 0.5 L Abs Lymphs (Manual) Lymphocytes # (Manual) 0.3 L PT INR APTT Heparin Anti-Xa Level POC ABG pH 7.300 L POC ABG pCO2 53.9 H POC ABG pO2 Sodium 147 H Potassium 3.4 L Chloride 114.5 H Carbon Dioxide BUN Creatinine Glucose POC Glucose Lactic Acid Calcium 7.7 L Phosphorus AST 69 H ALT 110 H Total Creatine Kinase Total Protein 5.2 L Albumin 1.9 L Vitamin B12 TSH Free T4 CSF VDRL Lymph Enumerat CD4/CD8 Absolute CD3 Count % CD4 Cells Absolute CD4 Count % CD8 Cells Absolute CD19 Count T.pallidum Ab (FTA-ABS) HIV-1 RNA PCR copies/ml HIV-1 RNA (PCR) log Miscellaneous Test 09/29/18 09/29/18 09/30/18 06:07 13:22 05:19 WBC 0.9 L* RBC 3.03 L Hgb 8.6 L Hct 25.9 L Plt Count Seg Neuts % (Manual) Lymphocytes % (Manual) Monocytes % (Manual) Eosinophils % (Manual) Basophils % (Manual) Nucleated RBC % Seg Neutrophils # Man Abs Lymphs (Manual) Lymphocytes # (Manual) PT INR APTT Heparin Anti-Xa Level POC ABG pH POC ABG pCO2 46.9 H POC ABG pO2 Sodium Potassium Chloride Carbon Dioxide BUN Creatinine Glucose POC Glucose 109 H Lactic Acid Calcium Phosphorus AST ALT Total Creatine Kinase Total Protein Albumin Vitamin B12 TSH Free T4 CSF VDRL Lymph Enumerat CD4/CD8 Absolute CD3 Count % CD4 Cells Absolute CD4 Count % CD8 Cells Absolute CD19 Count T.pallidum Ab (FTA-ABS) HIV-1 RNA PCR copies/ml HIV-1 RNA (PCR) log Miscellaneous Test 09/30/18 05:19 WBC RBC Hgb Hct Plt Count Seg Neuts % (Manual) Lymphocytes % (Manual) Monocytes % (Manual) Eosinophils % (Manual) Basophils % (Manual) Nucleated RBC % Seg Neutrophils # Man Abs Lymphs (Manual) Lymphocytes # (Manual) PT INR APTT Heparin Anti-Xa Level POC ABG pH POC ABG pCO2 POC ABG pO2 Sodium 150 H Potassium Chloride 115.2 H Carbon Dioxide BUN Creatinine Glucose POC Glucose Lactic Acid Calcium 7.9 L Phosphorus AST ALT Total Creatine Kinase Total Protein Albumin Vitamin B12 TSH Free T4 CSF VDRL Lymph Enumerat CD4/CD8 Absolute CD3 Count % CD4 Cells Absolute CD4 Count % CD8 Cells Absolute CD19 Count T.pallidum Ab (FTA-ABS) HIV-1 RNA PCR copies/ml HIV-1 RNA (PCR) log Miscellaneous Test Allied health notes reviewed: nursing
[2018-09-30] MEDS ORDERED: NACL 0.9% 500 ML 500 ML IV ONE (11:41)
[2018-09-30] MEDS ORDERED: PANCREAZE DR 10,500 UNIT FEEDTUBE PRN (12:01)
[2018-09-30] MEDS ORDERED: SODIUM BICARBONATE FEEDTUBE PRN (12:01)
[2018-09-30] MEDS ORDERED: SIMPLE SYRUP FEEDTUBE PRN ×2 (12:01)
[2018-09-30] MEDS: VIREAD PO SCH (14:22)
[2018-09-30] MEDS: EMTRIVA PO SCH (14:23)
[2018-09-30] MEDS: TIVICAY PO SCH (14:23)
[2018-09-30] MEDS: HEPARIN/ 0.45% NACL-25,000 UNIT/500 ML 25,000 UNIT/500 ML BAG IV SCH (14:28)
[2018-09-30] MEDS: TRANSDERM-SCOP TD SCH (18:43)
[2018-10-01] MEDS: CYTOVENE 500 MG in NACL 0.9% 250ML 250 ML IV SCH ×2 (00:37→13:26)
[2018-10-01] MEDS: PROVENTIL IH SCH ×4 (02:03→19:33)
[2018-10-01] MEDS: LOPRESSOR IV SCH ×4 (03:20→21:39)
[2018-10-01 05:10] LABS: Hemoglobin 8.4 gm/dl (11.8-15.2); Mean Corpuscular HGB Conc 32 % (32-34); Mean Corpuscular Volume 86 fl (84-94); Platelet Count 145 K/mm3 (140-440); Red Blood Count 3.01 M/mm3 (3.65-5.03); Red Cell Distribution Width 14.7 % (13.2-15.2)
[2018-10-01 05:46] LABS: BUN/Creatinine Ratio 22; Blood Urea Nitrogen 22 mg/dL (9-20); Calcium 7.3 mg/dL (8.4-10.2); Hemolysis Index 0
[2018-10-01] MEDS: FLAGYL PO SCH ×3 (06:05→21:40)
[2018-10-01] MEDS: SYNTHROID PO SCH (06:05)
[2018-10-01] MEDS: ROBINUL PO SCH ×3 (06:05→21:40)
--- NOTE | 2018-10-01 08:33 | Progress Note ---
Assessment and Plan Assessment and plan: Severe Sepsis. Etiology secondary to bacterial pneumonia +/- gastroenteritis with newly diagnosed with HIV. Continue IV antibiotics per ID. Acute hypoxemic respiratory failure. Etiology secondary to sepsis/multifocal pneumonia with probable concomitant aspiration. Intubated, on vent. Pulm following Bilateral pneumonia. Etiology likely secondary to PJP Pneumonia +/- aspiration. Chest x-ray, CT scan reveals multifocal pneumonia. Tracheal aspirate with Nona albicans. Toxic metabolic encephalopathy. 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 Of note, MRI did not show ventriculitis. Blood CMV DNA PCR = 1,058,978. CSF YAYO virus DNA PCR neg. Gastroenteritis. Follow-up stool studies and CT scan of the abdomen and pelvis--check for colitis when patient is hemodynamically stable. Continue antibiotics per ID A. fib with RVR. Converted to NSR. cont Amiodarone 200 bid Cont Heparin drip. 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 Diarrhea. Resolved, etiology likely secondary to Giardia. Giardia antigen positive in stool. Oral candidiasis. Continue fluconazole. HIV/AIDS. New Diagnosis. Neutropenia/thrombocytopenia. Likely from HIV myelosuppression, sepsis Fever. Hypernatremia. Improved started D5W Prognosis is guarded. The high probability of a clinically significant, sudden or life threatening deterioration of the [4] system(s) required my full and direct attention, intervention and personal management. The aggregate critical care time was [32] minutes. This time is in addition to time spent performing reported procedures but includes the following: [x] Data Review and interpretation [x] Patient assessment and monitoring of vital signs [x] Documentation [x] Medication orders and management History Interval history: Patient transferred to ICU,now intubated, on vent Still having fever Hospitalist Physical - Physical exam Narrative exam: GEN: Intubated, on ventilator HEENT: Normocephalic, atraumatic, Neck: supple, No JVD Lungs: Bilateral coarse breath sounds, Heart:S1 and S2 regular, no murmurs, rubs or gallop, Abd:soft, non tender, non distended, normal bowel sounds Ext: No edema, no clubbing or cyanosis Neuro: Intubated - Constitutional Vitals: Temp Pulse Resp BP Pulse Ox 98.5 F 89 12 135/68 100 10/01/18 04:00 10/01/18 06:30 10/01/18 06:30 10/01/18 06:30 10/01/18 06:30 General appearance: Present: other (orally intubated) Results - Labs CBC & Chem 7: 10/01/18 04:55 10/01/18 04:55 Labs: Laboratory Last Values WBC 0.9 K/mm3 (4.5-11.0) L* 10/01/18 04:55 RBC 3.01 M/mm3 (3.65-5.03) L 10/01/18 04:55 Hgb 8.4 gm/dl (11.8-15.2) L 10/01/18 04:55 Hct 26.0 % (35.5-45.6) L 10/01/18 04:55 MCV 86 fl (84-94) 10/01/18 04:55 MCH 28 pg (28-32) 10/01/18 04:55 MCHC 32 % (32-34) 10/01/18 04:55 RDW 14.7 % (13.2-15.2) 10/01/18 04:55 Plt Count 145 K/mm3 (140-440) 10/01/18 04:55 [place] % (Auto) Non Profit Job Titles 09/29/18 05:00 Baso % (Auto) Non Profit Job Titles 09/29/18 05:00 Add Manual Diff Complete 09/29/18 05:00 Total Counted 25 09/29/18 05:00 Seg Neutrophils % Non Profit Job Titles 09/29/18 05:00 Seg Neuts % (Manual) 40.0 % (40.0-70.0) 09/29/18 05:00 Band Neutrophils % 4.0 % 09/29/18 05:00 Lymphocytes % (Manual) 28.0 % (13.4-35.0) 09/29/18 05:00 Reactive Lymphs % (Man) 0 % 09/29/18 05:00 Monocytes % (Manual) 16.0 % (0.0-7.3) H 09/29/18 05:00 Eosinophils % (Manual) 0 % (0.0-4.3) 09/29/18 05:00 Basophils % (Manual) 0 % (0.0-1.8) 09/29/18 05:00 Metamyelocytes % 8.0 % 09/29/18 05:00 Myelocytes % 0 % 09/29/18 05:00 Promyelocytes % 4.0 % 09/29/18 05:00 Blast Cells % 0 % 09/29/18 05:00 Nucleated RBC % 4.0 % (0.0-0.9) H 09/29/18 05:00 Seg Neutrophils # Man 0.5 K/mm3 (1.8-7.7) L 09/29/18 05:00 Band Neutrophils # 0.0 K/mm3 09/29/18 05:00 Abs Lymphs (Manual) 309 cells/uL (850-3900) L 09/13/18 12:29 Lymphocytes # (Manual) 0.3 K/mm3 (1.2-5.4) L 09/29/18 05:00 Abs React Lymphs (Man) 0.0 K/mm3 09/29/18 05:00 Monocytes # (Manual) 0.2 K/mm3 (0.0-0.8) 09/29/18 05:00 Eosinophils # (Manual) 0.0 K/mm3 (0.0-0.4) 09/29/18 05:00 Basophils # (Manual) 0.0 K/mm3 (0.0-0.1) 09/29/18 05:00 Metamyelocytes # 0.1 K/mm3 09/29/18 05:00 Myelocytes # 0.0 K/mm3 09/29/18 05:00 Promyelocytes # 0.0 K/mm3 09/29/18 05:00 Blast Cells # 0.0 K/mm3 09/29/18 05:00 WBC Morphology Not Reportable 09/29/18 05:00 Hypersegmented Neuts Not Reportable 09/29/18 05:00 Hyposegmented Neuts Not Reportable 09/29/18 05:00 Hypogranular Neuts Not Reportable 09/29/18 05:00 Smudge Cells Not Reportable 09/29/18 05:00 Toxic Granulation Not Reportable 09/29/18 05:00 Toxic Vacuolation Not Reportable 09/29/18 05:00 Dohle Bodies Not Reportable 09/29/18 05:00 Pelger-Huet Anomaly Not Reportable 09/29/18 05:00 Giovanna Rods Not Reportable 09/29/18 05:00 Platelet Estimate Appears normal 09/29/18 05:00 Clumped Platelets Not Reportable 09/29/18 05:00 Plt Clumps, EDTA Not Reportable 09/29/18 05:00 Large Platelets Few 09/29/18 05:00 Giant Platelets Not Reportable 09/29/18 05:00 Platelet Satelliting Not Reportable 09/29/18 05:00 Plt Morphology Comment Not Reportable 09/29/18 05:00 RBC Morphology Not Reportable 09/29/18 05:00 Dimorphic RBCs Not Reportable 09/29/18 05:00 Polychromasia Not Reportable 09/29/18 05:00 Hypochromasia 1+ 09/29/18 05:00 Poikilocytosis Not Reportable 09/29/18 05:00 Anisocytosis 1+ 09/29/18 05:00 Microcytosis Not Reportable 09/29/18 05:00 Macrocytosis Rare 09/29/18 05:00 Spherocytes Not Reportable 09/29/18 05:00 Pappenheimer Bodies Not Reportable 09/29/18 05:00 Sickle Cells Not Reportable 09/29/18 05:00 Target Cells Few 09/29/18 05:00 Tear Drop Cells Not Reportable 09/29/18 05:00 Ovalocytes 2+ 09/29/18 05:00 Stomatocytes 1+ 09/29/18 05:00 Helmet Cells Not Reportable 09/29/18 05:00 [place] Bodies Not Reportable 09/29/18 05:00 [place] Rings Not Reportable 09/29/18 05:00 [place] Cells Not Reportable 09/29/18 05:00 Bite Cells Not Reportable 09/29/18 05:00 Crenated Cell Not Reportable 09/29/18 05:00 Elliptocytes Few 09/29/18 05:00 Acanthocytes (Spur) Not Reportable 09/29/18 05:00 Rouleaux Not Reportable 09/29/18 05:00 Hemoglobin C Crystals Not Reportable 09/29/18 05:00 Schistocytes Not Reportable 09/29/18 05:00 Malaria parasites Not Reportable 09/29/18 05:00 Kieran Bodies Not Reportable 09/29/18 05:00 Hem Pathologist Commnt No 09/29/18 05:00 PT 19.9 Sec. (12.2-14.9) H 09/21/18 15:00 INR 1.65 (0.87-1.13) H 09/21/18 15:00 APTT 40.9 Sec. (24.2-36.6) H 09/21/18 15:00 Heparin Anti-Xa Level 0.62 U.I./ml (0.3-0.7) 10/01/18 07:40 POC ABG pH 7.371 (7.35-7.45) 09/30/18 11:14 POC ABG pCO2 46.6 (35-45) H 09/30/18 11:14 POC ABG pO2 92 (80-105) 09/30/18 11:14 POC ABG HCO3 27.1 09/30/18 11:14 POC ABG Total CO2 28 09/30/18 11:14 POC ABG O2 Sat 97 09/30/18 11:14 POC ABG Base Excess 2 09/30/18 11:14 FiO2 25 % 09/30/18 11:14 Sodium 147 mmol/L (137-145) H 10/01/18 04:55 Potassium 3.4 mmol/L (3.6-5.0) L 10/01/18 04:55 Chloride 113.1 mmol/L (98-107) H 10/01/18 04:55 Carbon Dioxide 26 mmol/L (22-30) 10/01/18 04:55 Anion Gap 11 mmol/L 10/01/18 04:55 BUN 22 mg/dL (9-20) H 10/01/18 04:55 Creatinine 1.0 mg/dL (0.8-1.5) 10/01/18 04:55 Estimated GFR > 60 ml/min 10/01/18 04:55 BUN/Creatinine Ratio 22 % 10/01/18 04:55 Glucose 92 mg/dL (75-100) 10/01/18 04:55 POC Glucose 97 (70-105) 10/01/18 06:22 Lactic Acid 0.90 mmol/L (0.7-2.0) 09/11/18 20:17 Calcium 7.3 mg/dL (8.4-10.2) L 10/01/18 04:55 Phosphorus 3.10 mg/dL (2.5-4.5) D 09/27/18 04:11 Magnesium 1.80 mg/dL (1.7-2.3) 09/26/18 06:15 Total Bilirubin < 0.20 mg/dL (0.1-1.2) 09/29/18 05:00 Direct Bilirubin < 0.2 mg/dL (0-0.2) 09/13/18 07:31 AST 69 units/L (5-40) H 09/29/18 05:00 ALT 110 units/L (7-56) H 09/29/18 05:00 Alkaline Phosphatase 60 units/L (35-129) 09/29/18 05:00 Ammonia 47.0 umol/L (25-60) 09/16/18 11:41 Total Creatine Kinase 685 units/L (55-170) H 09/21/18 04:25 CK-MB (CK-2) 3.5 ng/mL (0.0-4.0) 09/21/18 04:25 CK-MB (CK-2) Rel Index 0.5 (0-4) 09/21/18 04:25 NT-Pro-B Natriuret Pep 145.9 pg/mL (0-450) 09/18/18 16:07 Total Protein 5.2 g/dL (6.3-8.2) L 09/29/18 05:00 Albumin 1.9 g/dL (3.9-5) L 09/29/18 05:00 Albumin/Globulin Ratio 0.6 % 09/29/18 05:00 Vitamin B12 934.5 pg/mL (211-911) H 09/16/18 11:41 TSH 5.190 mlU/mL (0.270-4.200) H 09/18/18 12:46 Free T4 0.75 ng/dL (0.76-1.46) L 09/18/18 12:46 Urine Color [place] (Yellow) 09/11/18 Unknown Urine Turbidity Clear (Clear) 09/11/18 Unknown Urine pH 5.0 (5.0-7.0) 09/11/18 Unknown Ur Specific [place] 1.016 (1.003-1.030) 09/11/18 Unknown Urine Protein <15 mg/dl mg/dL (Negative) 09/11/18 Unknown Urine Glucose (UA) Neg mg/dL (Negative) 09/11/18 Unknown Urine Ketones Neg mg/dL (Negative) 09/11/18 Unknown Urine Blood Sm (Negative) 09/11/18 Unknown Urine Nitrite Neg (Negative) 09/11/18 Unknown Urine Bilirubin Neg (Negative) 09/11/18 Unknown Urine Urobilinogen < 2.0 mg/dL (<2.0) 09/11/18 Unknown Ur Leukocyte Esterase Neg (Negative) 09/11/18 Unknown Urine WBC (Auto) 1.0 /HPF (0.0-6.0) 09/11/18 Unknown Urine RBC (Auto) 3.0 /HPF (0.0-6.0) 09/11/18 Unknown Urine Mucus Few /HPF 09/11/18 Unknown CSF Appearance Clear 09/19/18 15:00 CSF Color Colorless 09/19/18 15:00 CSF WBC 4 /mm3 (1-10) 09/19/18 15:00 CSF RBC 583 /mm3 (0-0) 09/19/18 15:00 CSF Seg Neutrophils 21.4 % (0-6) 09/19/18 15:00 CSF Lymphocytes % 71.4 % (40-80) 09/19/18 15:00 CSF Reactive Lymphs 0 % 09/19/18 15:00 CSF Monocytes % 7.1 % (15-45) 09/19/18 15:00 CSF Eosinophils % 0 % 09/19/18 15:00 CSF Basophils 0 % 09/19/18 15:00 CSF Pathologist Review C 09/19/18 15:00 CSF Glucose 32 mg/dL 09/19/18 15:00 CSF Total Protein 123 mg/dL 09/19/18 15:00 CSF VDRL Reactive 1:4 (Nonreactive) H 09/19/18 15:00 Vancomycin Trough 14.3 ug/mL (5.0-20.0) 09/25/18 14:45 Urine Opiates Screen Presumptive negative 09/17/18 15:52 Urine Methadone Screen Presumptive negative 09/17/18 15:52 Ur Barbiturates Screen Presumptive negative 09/17/18 15:52 Ur Phencyclidine Scrn Presumptive negative 09/17/18 15:52 Ur Amphetamines Screen Presumptive negative 09/17/18 15:52 U Benzodiazepines Scrn Presumptive negative 09/17/18 15:52 Urine Cocaine Screen Presumptive negative 09/17/18 15:52 U Marijuana (THC) Screen Presumptive negative 09/17/18 15:52 Drugs of Abuse Note Disclamer 09/17/18 15:52 Lymph Enumerat CD4/CD8 0.01 (0.86-5.00) L 09/13/18 12:29 % CD3 Cells 71 % (57-85) 09/13/18 12:29 Absolute CD3 Count 220 cells/uL (840-3060) L 09/13/18 12:29 % CD4 Cells 1 % (30-61) L 09/13/18 12:29 Absolute CD4 Count 4 cells/uL (490-1740) L 09/13/18 12:29 % CD8 Cells 70 % (12-42) H 09/13/18 12:29 Absolute CD8 Count 216 cells/uL (180-1170) 09/13/18 12:29 % CD19 Cells 17 % (6-29) 09/13/18 12:29 Absolute CD19 Count 54 cells/uL (110-660) L 09/13/18 12:29 RPR Titer 1:16 09/13/18 12:29 RPR Reactive (Nonreactive) 09/13/18 12:29 T.pallidum Ab (FTA-ABS) Reactive (Nonreactive) H 09/14/18 16:34 C. 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 See scanned result 09/26/18 06:15 Hepatitis A IgM Ab Non-reactive (NonReactive) 09/13/18 12:29 Hep Bs Antigen Non-reactive (Negative) 09/13/18 12:29 Hep B Core IgM Ab Non-reactive (NonReactive) 09/13/18 12:29 Hepatitis C Antibody Non-reactive (NonReactive) 09/13/18 12:29 HIV-1 Antibody See scanned result 09/11/18 19:14 HIV-1 RNA PCR copies/ml 55004 Copies/mL H 09/13/18 12:29 HIV-1 RNA (PCR) log 4.71 Log cps/mL H 09/13/18 12:29 HIV-2 Ab (Immunoblot) See scanned result 09/11/18 19:14 HIV 1&2 Antibody Rapid Reactive (Non React) 09/11/18 19:14 HIV P24 Antigen Non react (Non React) 09/11/18 19:14 Influenza A (Rapid) Negative (Negative) 09/13/18 16:05 Influenza A (RT-PCR) Negative (Negative) 09/13/18 16:05 Influenza B (Rapid) Negative (Negative) 09/13/18 16:05 Influenza B (RT-PCR) Negative (Negative) 09/13/18 16:05 Toxoplasma IgG Ab <7.20 IU/mL (<7.20) 09/16/18 12:09 Miscellaneous Test see below 09/21/18 03:55 Nutrition/Malnutrition Assess - Dietary Evaluation Nutrition/Malnutrition Findings: Nutrition Notes Start: 09/12/18 17:45 Freq: Status: Active Protocol: Document 09/30/18 10:48 CT (Rec: 09/30/18 11:59 CT [id number]) Co-Sign 09/30/18 10:48 LP Nutrition Notes Initial or Follow up Reassessment Current Diagnosis Acute Kidney Injury Sepsis Respiratory Failure Other Pertinent Diagnosis HIV, bilat pneu, gastroenteritis, encephalopathy Current Diet TF- Vital High Protein at 70ml /hr Labs/Tests Na: 150 Pertinent Medications Reviewed. Height 6 ft Weight 115.4 kg [place] Body Weight (kg) 80.90 BMI 34.4 Subjective/Other Information Observed TF running at goal ( 70ml). Percent of energy/protein needs met: 97%/91% Burn Absent Trauma Absent #2 Nutrition Diagnosis Inadequate oral intake Diagnosis Progress(for reassessment Continues documentation) #1 Nutrition Diagnosis Malnutrition Diagnosis Progress(for reassessment Continues documentation) Is patient on ventilator? Yes Is Patient Ambulatory and/or Out of Bed No REE-([facility]-confined to bed) 2566.188 Kcal/Kg value to use for calculation 15 Approximate Energy Requirements Using 1731 kcal/Kg Calculation Used for Recommendations Kcal/kg Additional Notes Pro needs 2g/kg IBW: 162g/day Fluid needs 1ml/kcal Nutrition Intervention Change Diet Order: Continue TF Nutrition Support: Increase water flush to 150 q4h. Kcal 1,680 Protein (gm) 147 Fluid (mL) 1,404 Goal #1 Continue to meet at least 80% of PRO and kcal needs with TF. Follow-Up By: 02/19/19 Additional Comments F/U: stable TF and Na labs
[2018-10-01] MEDS: PEPCID PO SCH ×2 (09:59→21:40)
[2018-10-01] MEDS: CORDARONE PO SCH ×2 (09:59→21:40)
[2018-10-01] MEDS: ROCEPHIN/NS 2 GM/100 ML 2 GM/100 ML BAG IV SCH ×2 (09:59→22:07)
[2018-10-01] MEDS: MEPRON PO SCH ×2 (10:00→21:39)
[2018-10-01] MEDS: SODIUM CHLORIDE FLUSH SYRINGE 10 ML IV SCH ×2 (10:00→21:41)
[2018-10-01] MEDS: EMTRIVA PO SCH (10:04)
[2018-10-01] MEDS: VIREAD PO SCH (10:05)
[2018-10-01] MEDS: TIVICAY PO SCH (10:06)
[2018-10-01] MEDS: D5W 1,000 ML IV SCH (10:09)
--- NOTE | 2018-10-01 10:24 | Progress Note ---
Assessment and Plan - Patient Problems (1) Acute kidney failure with tubular necrosis Current Visit: Yes Status: Acute Plan to address problem: Overall renal function is stable. Need for close monitoring while receiving IV ganciclovir. Remains non oliguric. Continue to monitor. . (2) Hypernatremia Current Visit: Yes Status: Acute Plan to address problem: free water flushes with TF now at 250 cc q4h. Patient is also being started on D5W @ 50cc/hr. Will monitor (3) Acute respiratory failure with hypoxia Current Visit: Yes Status: Acute Plan to address problem: Remains intubated. Recent Chest xray noted, with development of patchy infiltrates in the right lung. Further management per pulm/ICU (4) Hypokalemia Current Visit: Yes Status: Acute Plan to address problem: Replete per protocol to maintain levels above 3.5. 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 Will continue to monitor. Remains very lethargic with only spontaneously opening eyes. Does not follow commands. Continue to monitor (6) Pancytopenia Current Visit: Yes Status: Acute Plan to address problem: In the setting of CMV viremia, HIV/AIDS. Will defer to primary team. (7) HIV (human immunodeficiency virus infection) Current Visit: Yes Status: Chronic Plan to address problem: Management per ID recommendations. Subjective Date of service: 10/01/18 Principal diagnosis: Severe sepsis; Ac hypoxemic Resp failure; [place]. Pneumonia; Ac encephalopathy Interval history: No acute issues overnight. Remains intubated, no changes in overall mental status. Labs noted, renal function is stable and he remains non oliguric. Objective - Vital Signs Vital signs: Vital Signs - 12hr 09/30/18 09/30/18 09/30/18 22:30 23:00 23:30 Temperature Pulse Rate 91 H 94 H 95 H Pulse Rate [ Anterior Bilateral Throughout] Pulse Rate [ From Monitor] Pulse Rate [ Throughout] Respiratory 21 20 26 H Rate Respiratory Rate [Anterior Bilateral Throughout] Respiratory Rate [ Throughout] Blood Pressure 117/63 128/69 128/69 O2 Sat by Pulse 100 100 100 Oximetry 10/01/18 10/01/1819 00:00 00:30 00:41 Temperature 100 F H Pulse Rate 95 H 104 H 99 H Pulse Rate [ Anterior Bilateral Throughout] Pulse Rate [ 97 H From Monitor] Pulse Rate [ Throughout] Respiratory 17 19 Rate Respiratory Rate [Anterior Bilateral Throughout] Respiratory Rate [ Throughout] Blood Pressure 130/68 130/68 130/68 O2 Sat by Pulse 100 100 100 Oximetry 10/01/18 10/01/18 10/01/18 01:00 01:30 02:00 Temperature Pulse Rate 91 H 90 93 H Pulse Rate [ Anterior Bilateral Throughout] Pulse Rate [ From Monitor] Pulse Rate [ Throughout] Respiratory 21 21 22 Rate Respiratory Rate [Anterior Bilateral Throughout] Respiratory Rate [ Throughout] Blood Pressure 119/65 130/68 122/65 O2 Sat by Pulse 100 100 100 Oximetry 10/01/18 10/01/18 10/01/18 02:04 02:30 02:35 Temperature Pulse Rate 94 H Pulse Rate [ Anterior Bilateral Throughout] Pulse Rate [ From Monitor] Pulse Rate [ 94 H 95 H Throughout] Respiratory 17 Rate Respiratory Rate [Anterior Bilateral Throughout] Respiratory 23 20 Rate [ Throughout] Blood Pressure 122/65 O2 Sat by Pulse 100 Oximetry 10/01/18 10/01/18 10/01/18 03:00 03:20 03:30 Temperature Pulse Rate 101 H 98 H 91 H Pulse Rate [ Anterior Bilateral Throughout] Pulse Rate [ From Monitor] Pulse Rate [ Throughout] Respiratory 17 21 Rate Respiratory Rate [Anterior Bilateral Throughout] Respiratory Rate [ Throughout] Blood Pressure 133/68 133/68 133/68 O2 Sat by Pulse 100 100 Oximetry 10/01/18 10/01/18 10/01/18 04:00 04:30 04:56 Temperature 98.5 F Pulse Rate 91 H 88 95 H Pulse Rate [ Anterior Bilateral Throughout] Pulse Rate [ 92 H From Monitor] Pulse Rate [ Throughout] Respiratory 19 21 Rate Respiratory Rate [Anterior Bilateral Throughout] Respiratory Rate [ Throughout] Blood Pressure 122/64 122/64 122/64 O2 Sat by Pulse 100 100 100 Oximetry 10/01/18 10/01/18 10/01/18 05:00 05:30 06:00 Temperature Pulse Rate 92 H 98 H 95 H Pulse Rate [ Anterior Bilateral Throughout] Pulse Rate [ From Monitor] Pulse Rate [ Throughout] Respiratory 18 21 16 Rate Respiratory Rate [Anterior Bilateral Throughout] Respiratory Rate [ Throughout] Blood Pressure 135/68 135/68 119/66 O2 Sat by Pulse 100 100 100 Oximetry 10/01/18 10/01/18 10/01/18 06:30 07:00 07:17 Temperature Pulse Rate 89 87 81 Pulse Rate [ 81 Anterior Bilateral Throughout] Pulse Rate [ From Monitor] Pulse Rate [ Throughout] Respiratory 12 14 Rate Respiratory 17 Rate [Anterior Bilateral Throughout] Respiratory Rate [ Throughout] Blood Pressure 135/68 123/66 116/67 O2 Sat by Pulse 100 100 100 Oximetry 10/01/18 10/01/18 10/01/18 07:27 07:30 08:00 Temperature 99.3 F Pulse Rate 88 90 Pulse Rate [ 89 Anterior Bilateral Throughout] Pulse Rate [ 87 From Monitor] Pulse Rate [ Throughout] Respiratory 20 16 Rate Respiratory 15 Rate [Anterior Bilateral Throughout] Respiratory Rate [ Throughout] Blood Pressure 123/66 127/63 O2 Sat by Pulse 100 100 Oximetry 10/01/18 10/01/18 08:30 09:25 Temperature Pulse Rate 82 87 Pulse Rate [ Anterior Bilateral Throughout] Pulse Rate [ From Monitor] Pulse Rate [ Throughout] Respiratory 11 L Rate Respiratory Rate [Anterior Bilateral Throughout] Respiratory Rate [ Throughout] Blood Pressure 123/66 116/67 O2 Sat by Pulse 100 Oximetry - General Appearance General appearance: chronically ill, intubated EENT: ATNC, PERRL Neck: no JVD, no thyromegaly Respiratory: Present: Clear to Ascultation Cardiology: regular, S1S2 Gastrointestinal: normal, normoactive bowel sounds Integumentary: rash (rash noted on right ear pinnae ) Neurologic: other (remains lethargic off sedation does not follow commands with spontaneous eye opening ) Psychiatric: other (remains lethargic) - Lab 10/01/18 04:55 10/01/18 04:55 Most recent lab results Calcium 7.3 mg/dL (8.4-10.2) L 10/01/18 04:55 Phosphorus 3.10 mg/dL (2.5-4.5) D 09/27/18 04:11 Magnesium 1.80 mg/dL (1.7-2.3) 09/26/18 06:15 - Allied health notes Allied health notes reviewed: nursing Medications & Allergies - Medications Allergies/Adverse Reactions: Allergies No Known Allergies Allergy (Unverified 09/11/18 17:50) Active Medications: Generic Name Dose Route Start Last Admin Trade Name Freq PRN Reason Stop Dose Admin Acetaminophen 650 mg 09/11/18 19:30 09/23/18 08:41 Tylenol PO 650 mg Q4H PRN Administration Pain MILD(1-3)/Fever >100.5/RIVERA Acetaminophen 650 mg 09/21/18 07:39 Tylenol [place] Q4H PRN Fever >101 Albuterol 2.5 mg 09/11/18 19:30 09/16/18 06:09 Proventil IH 2.5 mg Q4HRT PRN Administration Shortness Of Breath Albuterol 2.5 mg 09/20/18 20:00 10/01/18 07:17 Proventil IH 2.5 mg Q6HRT GIA Administration Amiodarone HCl 200 mg 09/27/18 15:00 10/01/18 09:59 Cordarone PO 200 mg BID GAI Administration Lipase/Protease/Amylase 1 each 09/30/18 12:01 Pancrealen Gibbs 10,500 Unit FEEDTUBE PRN PRN For Clogged Feeding Tube Atovaquone 750 mg 09/21/18 10:00 10/01/18 10:00 Mepron PO 750 mg BID GIA Administration Azithromycin 1,200 mg 09/25/18 10:00 09/25/18 10:00 Zithromax PO 1,200 mg Walters GIA Administration Emtricitabine 200 mg 09/30/18 11:30 10/01/18 10:04 Emtriva PO 200 mg QDAY GIA Administration Famotidine 20 mg 09/24/18 10:00 10/01/18 09:59 Pepcid PO 20 mg BID GIA Administration Glycopyrrolate 2 mg 09/23/18 15:00 10/01/18 06:05 Robinul PO 2 mg Q8HR GIA Administration Hydrophilic Ointment 1 applic 09/21/18 01:46 09/22/18 03:46 Vaseline Lip Therapy TP 1 applic Q2HR PRN Administration Dry Lips Fluconazole 200 mls @ 100 mls/hr 09/13/18 14:00 09/30/18 09:50 Diflucan IV 100 mls/hr Q24HR GIA Administration Protocol Heparin Sodium/Sodium Chloride 25,000 unit in 500 mls @ 30 mls/hr 09/21/18 11:00 10/01/18 01:19 Heparin/ 0.45% Nacl-25,000 Unit/500 Ml IV 1,200 units/hr TITR GIA 24 mls/hr Titration Protocol 1,500 UNITS/HR Ganciclovir Sodium 500 mg/ 250 mls @ 100 mls/hr 09/23/18 13:00 10/01/18 00:37 Sodium Chloride IV 100 mls/hr Q12H GIA Administration Ceftriaxone Sodium 2 gm in 100 mls @ 200 mls/hr 09/23/18 13:00 10/01/18 09:59 Rocephin/Ns 2 Gm/100 Ml IV 200 mls/hr Q12HR GIA Administration Protocol Dextrose 1,000 mls @ 50 mls/hr 09/30/18 15:00 10/01/18 10:09 D5w IV 50 mls/hr DIRECT GIA Administration Levothyroxine Sodium 25 mcg 09/19/18 06:00 10/01/18 06:05 Synthroid PO 25 mcg DAILY@0600 GIA Administration Metoprolol Tartrate 5 mg 09/21/18 03:00 10/01/18 09:25 Lopressor IV Not Given Q6H GIA Metronidazole 500 mg 09/26/18 14:00 10/01/18 06:05 Flagyl PO 500 mg Q8HR GIA Administration Protocol Multi-Ingred Cream/Lotion/Oil/Oint 1 applic 09/21/18 01:46 Artificial Tears Ophth Oint OU Q4HR PRN Dry Eye(s) Ondansetron HCl 4 mg 09/11/18 19:30 Zofran IV Q8H PRN Nausea And Vomiting Scopolamine 1 each 09/18/18 18:00 09/30/18 18:43 Transderm-Scop TD 1 each Q3D GIA Administration Simple Syrup 15 ml 09/30/18 12:01 Simple Syrup FEEDTUBE PRN PRN Hypoglycemia Simple Syrup 30 ml 09/30/18 12:01 Simple Syrup FEEDTUBE PRN PRN Hypoglycemia Sodium Bicarbonate 325 mg 09/30/18 12:01 Sodium Bicarbonate FEEDTUBE PRN PRN For Clogged Feeding Tube Sodium Chloride 10 ml 09/11/18 22:00 10/01/18 10:00 Sodium Chloride Flush Syringe 10 Ml IV 10 ml BID GIA Administration Sodium Chloride 10 ml 09/11/18 19:30 Sodium Chloride Flush Syringe 10 Ml IV PRN PRN LINE FLUSH Tenofovir Disoproxil Fumarate 300 mg 02/15/19 11:30 10/01/18 10:05 Viread PO 300 mg QDAY GIA Administration
[2018-10-01] MEDS: DIFLUCAN 200 ML IV SCH (10:29)
[2018-10-01] MEDS: HEPARIN/ 0.45% NACL-25,000 UNIT/500 ML 25,000 UNIT/500 ML BAG IV SCH (10:30)
--- NOTE | 2018-10-01 14:03 | Progress Note ---
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) Elevated LFTs Neutropenia Thrombocytopenia (His mental status remains the rate limiting step to safe extubation for now) - will benefit from tracheostomy placement as he will be unable to protect his airway acutely - continue Robinul & scopolamine for secretion control - continue to hold all sedating medications - ETT day # 12; will continue daytime SBT's for now while following mental status - continue anti-infective's per ID recs (ART has been started appropriately) - continue low dose reglan re: reported increased residuals - continue supplemental oxygen to keep sats > 90% - continue bronchodilators with pulmonary Continue empiric and targeted anti- infective's per ID recs antibiotics per ID - continue set rate at 12/min - continue daily SBT's - daily SAT's - continue IV heparin for NSTEMI - continue Robinul 2 mg q8h for secretions - IV amiodarone stopped - cardiology evaluation ongoing - diarrhea improved - continue fluconazole for candidiasis - watch for drug-drug interactions - continue enteral nutrition as tolerated - when resumed target sedation for RASS 0 to -1 - PT/OT/ROM exercises as tolerated - mobility protocol for pressure ulcer prophylaxis - continue GI & VTE prophylaxis - continue other care per attending / other consultants ....... care plan discussed at length with next-of-kin at bedside ...... re-evaluate in am & prn The high probability of a clinically significant, sudden or life threatening deterioration of the [cardiac, respiratory and neurologic] system(s) required my full and direct attention, intervention and personal management. The aggregate critical care time was [31] minutes. This time is in addition to time spent performing reported procedures but includes the following: [x] Data Review and interpretation [x] Patient assessment and monitoring of vital signs [x] Documentation [x] Medication orders and management Subjective Date of service: 10/01/18 Principal diagnosis: Severe sepsis; Ac hypoxemic Resp failure; [place]. Pneumonia; Ac encephalopathy Interval history: Patient is seen today for: Severe sepsis (present on admission with fever, tachycardia, hypotension and elevated lactate); Acute hypoxemic Respiratory failure; Bilateral pneumonia; Acute encephalopathy (Toxic / Metabolic); Atrial Fibrillation with RVR Seen and examined at bedside; 24hour events reviewed; nursing and respiratory care staff consulted; no adverse overnight events reported to me; remains encephalopathic; tolerating PSV trials but tenuously at times; secretions moderate today; no seizures; no emesis or overt aspiration Objective Vital Signs - 12hr 10/01/18 10/01/18 10/01/18 02:04 02:30 02:35 Temperature Pulse Rate 94 H Pulse Rate [ Anterior Bilateral Throughout] Pulse Rate [ From Monitor] Pulse Rate [ 94 H 95 H Throughout] Respiratory 17 Rate Respiratory Rate [Anterior Bilateral Throughout] Respiratory 23 20 Rate [ Throughout] Blood Pressure 122/65 O2 Sat by Pulse 100 Oximetry 10/01/18 10/01/18 10/01/18 03:00 03:20 03:30 Temperature Pulse Rate 101 H 98 H 91 H Pulse Rate [ Anterior Bilateral Throughout] Pulse Rate [ From Monitor] Pulse Rate [ Throughout] Respiratory 17 21 Rate Respiratory Rate [Anterior Bilateral Throughout] Respiratory Rate [ Throughout] Blood Pressure 133/68 133/68 133/68 O2 Sat by Pulse 100 100 Oximetry 10/01/18 10/01/18 10/01/18 04:00 04:30 04:56 Temperature 98.5 F Pulse Rate 91 H 88 95 H Pulse Rate [ Anterior Bilateral Throughout] Pulse Rate [ 92 H From Monitor] Pulse Rate [ Throughout] Respiratory 19 21 Rate Respiratory Rate [Anterior Bilateral Throughout] Respiratory Rate [ Throughout] Blood Pressure 122/64 122/64 122/64 O2 Sat by Pulse 100 100 100 Oximetry 10/01/18 10/01/18 10/01/18 05:00 05:30 06:00 Temperature Pulse Rate 92 H 98 H 95 H Pulse Rate [ Anterior Bilateral Throughout] Pulse Rate [ From Monitor] Pulse Rate [ Throughout] Respiratory 18 21 16 Rate Respiratory Rate [Anterior Bilateral Throughout] Respiratory Rate [ Throughout] Blood Pressure 135/68 135/68 119/66 O2 Sat by Pulse 100 100 100 Oximetry 10/01/18 10/01/18 10/01/18 06:30 07:00 07:17 Temperature Pulse Rate 89 87 81 Pulse Rate [ 81 Anterior Bilateral Throughout] Pulse Rate [ From Monitor] Pulse Rate [ Throughout] Respiratory 12 14 Rate Respiratory 17 Rate [Anterior Bilateral Throughout] Respiratory Rate [ Throughout] Blood Pressure 135/68 123/66 116/67 O2 Sat by Pulse 100 100 100 Oximetry 10/01/18 10/01/18 10/01/18 07:27 07:30 08:00 Temperature 99.3 F Pulse Rate 88 90 Pulse Rate [ 89 Anterior Bilateral Throughout] Pulse Rate [ 87 From Monitor] Pulse Rate [ Throughout] Respiratory 20 16 Rate Respiratory 15 Rate [Anterior Bilateral Throughout] Respiratory Rate [ Throughout] Blood Pressure 123/66 127/63 O2 Sat by Pulse 100 100 Oximetry 10/01/18 10/01/18 10/01/18 08:30 09:00 09:25 Temperature Pulse Rate 82 86 87 Pulse Rate [ Anterior Bilateral Throughout] Pulse Rate [ From Monitor] Pulse Rate [ Throughout] Respiratory 11 L 13 Rate Respiratory Rate [Anterior Bilateral Throughout] Respiratory Rate [ Throughout] Blood Pressure 123/66 116/67 116/67 O2 Sat by Pulse 100 100 Oximetry 10/01/18 10/01/18 10/01/18 09:30 10:00 10:15 Temperature Pulse Rate 91 H 82 89 Pulse Rate [ Anterior Bilateral Throughout] Pulse Rate [ From Monitor] Pulse Rate [ Throughout] Respiratory 12 12 20 Rate Respiratory Rate [Anterior Bilateral Throughout] Respiratory Rate [ Throughout] Blood Pressure 116/67 120/61 128/80 O2 Sat by Pulse 100 100 100 Oximetry 10/01/18 10/01/18 10/01/18 10:30 11:00 11:30 Temperature Pulse Rate 84 89 89 Pulse Rate [ Anterior Bilateral Throughout] Pulse Rate [ From Monitor] Pulse Rate [ Throughout] Respiratory 13 22 16 Rate Respiratory Rate [Anterior Bilateral Throughout] Respiratory Rate [ Throughout] Blood Pressure 116/67 128/80 128/80 O2 Sat by Pulse 100 100 100 Oximetry 10/01/18 10/01/18 10/01/18 12:00 12:15 12:30 Temperature 99.0 F Pulse Rate 80 91 H 89 Pulse Rate [ Anterior Bilateral Throughout] Pulse Rate [ 85 From Monitor] Pulse Rate [ Throughout] Respiratory 16 20 14 Rate Respiratory Rate [Anterior Bilateral Throughout] Respiratory Rate [ Throughout] Blood Pressure 135/86 135/86 135/86 O2 Sat by Pulse 100 100 100 Oximetry 10/01/18 13:00 Temperature Pulse Rate 82 Pulse Rate [ Anterior Bilateral Throughout] Pulse Rate [ From Monitor] Pulse Rate [ Throughout] Respiratory 18 Rate Respiratory Rate [Anterior Bilateral Throughout] Respiratory Rate [ Throughout] Blood Pressure 119/72 O2 Sat by Pulse 100 Oximetry Constitutional: lethargic, agitated, appears uncomfortable, other (orally intubated ETT at 23cm) Eyes: non-icteric ENT: oropharynx moist, other (ETT 25 cm NIKA) Neck: supple, no lymphadenopathy, other (no thyromegaly) Effort: mildly labored Ascultation: Bilateral: rales, rhonchi Percussion: Bilateral: not dull Cardiovascular: regular rate and rhythm, other (S1,S2, no murmurs, gallps or rubs) Gastrointestinal: normoactive bowel sounds, soft, non-tender, non-distended Integumentary: rash Extremities: no cyanosis, pulses normal, no ischemia or petechiae, edema Neurologic: pupils equal and round, motor strength normal and (weak though) Psychiatric: other (unable to assess) CBC and BMP: 10/02/18 07:15 10/02/18 07:15 ABG, PT/INR, D-dimer: ABG POC ABG pH 7.387 (7.35-7.45) 10/01/18 13:06 POC ABG pCO2 44.1 (35-45) 10/01/18 13:06 POC ABG pO2 83 (80-105) 10/01/18 13:06 POC ABG HCO3 26.5 10/01/18 13:06 POC ABG Total CO2 28 10/01/18 13:06 POC ABG O2 Sat 96 10/01/18 13:06 PT/INR, D-dimer PT 19.9 Sec. (12.2-14.9) H 09/21/18 15:00 INR 1.65 (0.87-1.13) H 09/21/18 15:00 Abnormal lab findings: Abnormal Labs 09/11/18 09/11/18 09/11/18 18:00 18:00 18:00 WBC 1.9 L* RBC Hgb Hct Plt Count 130 L Seg Neuts % (Manual) Lymphocytes % (Manual) Monocytes % (Manual) 16.0 H Eosinophils % (Manual) Basophils % (Manual) Nucleated RBC % Seg Neutrophils # Man 0.9 L Abs Lymphs (Manual) Lymphocytes # (Manual) 0.5 L PT INR APTT Heparin Anti-Xa Level POC ABG pH POC ABG pCO2 POC ABG pO2 Sodium 131 L Potassium Chloride Carbon Dioxide 17 L BUN 21 H Creatinine Glucose 126 H POC Glucose Lactic Acid 2.60 H* Calcium 8.1 L Phosphorus AST 123 H ALT 115 H Total Creatine Kinase Total Protein Albumin 3.0 L Vitamin B12 TSH Free T4 CSF VDRL Lymph Enumerat CD4/CD8 Absolute CD3 Count % CD4 Cells Absolute CD4 Count % CD8 Cells Absolute CD19 Count T.pallidum Ab (FTA-ABS) HIV-1 RNA PCR copies/ml HIV-1 RNA (PCR) log Miscellaneous Test 09/11/18 09/13/18 09/13/18 19:01 04:28 07:31 WBC 2.0 L RBC Hgb Hct Plt Count 116 L Seg Neuts % (Manual) Lymphocytes % (Manual) Monocytes % (Manual) 8.0 H Eosinophils % (Manual) Basophils % (Manual) Nucleated RBC % Seg Neutrophils # Man 1.0 L Abs Lymphs (Manual) Lymphocytes # (Manual) 0.5 L PT INR APTT Heparin Anti-Xa Level POC ABG pH POC ABG pCO2 POC ABG pO2 Sodium Potassium Chloride 110.4 H Carbon Dioxide 19 L BUN Creatinine Glucose POC Glucose Lactic Acid 3.70 H* Calcium 7.9 L Phosphorus AST ALT Total Creatine Kinase Total Protein Albumin Vitamin B12 TSH Free T4 CSF VDRL Lymph Enumerat CD4/CD8 Absolute CD3 Count % CD4 Cells Absolute CD4 Count % CD8 Cells Absolute CD19 Count T.pallidum Ab (FTA-ABS) HIV-1 RNA PCR copies/ml HIV-1 RNA (PCR) log Miscellaneous Test 09/13/18 09/13/18 09/13/18 07:31 12:29 12:29 WBC RBC Hgb Hct Plt Count Seg Neuts % (Manual) Lymphocytes % (Manual) Monocytes % (Manual) Eosinophils % (Manual) Basophils % (Manual) Nucleated RBC % Seg Neutrophils # Man Abs Lymphs (Manual) 309 L Lymphocytes # (Manual) PT INR APTT Heparin Anti-Xa Level POC ABG pH POC ABG pCO2 POC ABG pO2 Sodium Potassium Chloride Carbon Dioxide BUN Creatinine Glucose POC Glucose Lactic Acid Calcium Phosphorus AST 70 H ALT 68 H Total Creatine Kinase Total Protein Albumin 2.5 L Vitamin B12 TSH Free T4 CSF VDRL Lymph Enumerat CD4/CD8 0.01 L Absolute CD3 Count 220 L % CD4 Cells 1 L Absolute CD4 Count 4 L % CD8 Cells 70 H Absolute CD19 Count 54 L T.pallidum Ab (FTA-ABS) HIV-1 RNA PCR copies/ml 22828 H HIV-1 RNA (PCR) log 4.71 H Miscellaneous Test 09/13/18 09/14/18 09/14/18 12:29 07:17 16:34 WBC RBC Hgb Hct Plt Count Seg Neuts % (Manual) Lymphocytes % (Manual) Monocytes % (Manual) Eosinophils % (Manual) Basophils % (Manual) Nucleated RBC % Seg Neutrophils # Man Abs Lymphs (Manual) Lymphocytes # (Manual) PT INR APTT Heparin Anti-Xa Level POC ABG pH POC ABG pCO2 POC ABG pO2 Sodium Potassium 3.4 L Chloride Carbon Dioxide 18 L BUN Creatinine Glucose 104 H POC Glucose Lactic Acid Calcium 7.6 L Phosphorus AST 49 H ALT Total Creatine Kinase Total Protein Albumin 2.5 L Vitamin B12 TSH Free T4 CSF VDRL Lymph Enumerat CD4/CD8 Absolute CD3 Count % CD4 Cells Absolute CD4 Count % CD8 Cells Absolute CD19 Count T.pallidum Ab (FTA-ABS) Reactive H HIV-1 RNA PCR copies/ml HIV-1 RNA (PCR) log Miscellaneous Test Flexitest 1 H 09/15/18 09/15/18 09/15/18 05:05 05:05 Unknown WBC 1.6 L* RBC Hgb 10.4 L Hct 31.1 L D Plt Count 113 L Seg Neuts % (Manual) Lymphocytes % (Manual) Monocytes % (Manual) Eosinophils % (Manual) Basophils % (Manual) Nucleated RBC % Seg Neutrophils # Man Abs Lymphs (Manual) Lymphocytes # (Manual) PT INR APTT Heparin Anti-Xa Level POC ABG pH POC ABG pCO2 POC ABG pO2 Sodium Potassium Chloride 107.9 H Carbon Dioxide 18 L BUN 6 L Creatinine Glucose POC Glucose Lactic Acid Calcium 7.4 L Phosphorus AST ALT Total Creatine Kinase Total Protein Albumin Vitamin B12 TSH Free T4 CSF VDRL Reactive 1:8 H Lymph Enumerat CD4/CD8 Absolute CD3 Count % CD4 Cells Absolute CD4 Count % CD8 Cells Absolute CD19 Count T.pallidum Ab (FTA-ABS) HIV-1 RNA PCR copies/ml HIV-1 RNA (PCR) log Miscellaneous Test 09/16/18 09/16/18 09/16/18 06:55 11:41 11:41 WBC 2.8 L RBC Hgb 10.9 L Hct 33.5 L Plt Count 135 L Seg Neuts % (Manual) Lymphocytes % (Manual) Monocytes % (Manual) Eosinophils % (Manual) Basophils % (Manual) Nucleated RBC % Seg Neutrophils # Man Abs Lymphs (Manual) Lymphocytes # (Manual) PT INR APTT Heparin Anti-Xa Level POC ABG pH POC ABG pCO2 POC ABG pO2 Sodium Potassium Chloride Carbon Dioxide BUN Creatinine Glucose POC Glucose Lactic Acid Calcium Phosphorus AST ALT Total Creatine Kinase Total Protein Albumin Vitamin B12 TSH 4.210 H Free T4 0.72 L CSF VDRL Lymph Enumerat CD4/CD8 Absolute CD3 Count % CD4 Cells Absolute CD4 Count % CD8 Cells Absolute CD19 Count T.pallidum Ab (FTA-ABS) HIV-1 RNA PCR copies/ml HIV-1 RNA (PCR) log Miscellaneous Test 09/16/18 09/16/18 09/17/18 11:41 15:43 05:13 WBC 2.0 L RBC Hgb 10.9 L Hct 32.7 L Plt Count Seg Neuts % (Manual) Lymphocytes % (Manual) Monocytes % (Manual) Eosinophils % (Manual) Basophils % (Manual) Nucleated RBC % Seg Neutrophils # Man Abs Lymphs (Manual) Lymphocytes # (Manual) PT INR APTT Heparin Anti-Xa Level POC ABG pH POC ABG pCO2 29.3 L POC ABG pO2 70 L Sodium Potassium Chloride Carbon Dioxide BUN Creatinine Glucose POC Glucose Lactic Acid Calcium Phosphorus AST ALT Total Creatine Kinase Total Protein Albumin Vitamin B12 934.5 H TSH Free T4 CSF VDRL Lymph Enumerat CD4/CD8 Absolute CD3 Count % CD4 Cells Absolute CD4 Count % CD8 Cells Absolute CD19 Count T.pallidum Ab (FTA-ABS) HIV-1 RNA PCR copies/ml HIV-1 RNA (PCR) log Miscellaneous Test 09/17/18 09/17/18 09/18/18 05:13 21:57 12:46 WBC RBC Hgb Hct Plt Count Seg Neuts % (Manual) Lymphocytes % (Manual) Monocytes % (Manual) Eosinophils % (Manual) Basophils % (Manual) Nucleated RBC % Seg Neutrophils # Man Abs Lymphs (Manual) Lymphocytes # (Manual) PT INR APTT Heparin Anti-Xa Level POC ABG pH POC ABG pCO2 POC ABG pO2 Sodium Potassium Chloride 107.2 H Carbon Dioxide 21 L BUN 3 L Creatinine 0.7 L Glucose POC Glucose 108 H Lactic Acid Calcium 7.9 L Phosphorus AST ALT Total Creatine Kinase Total Protein 6.1 L Albumin 2.6 L Vitamin B12 TSH Free T4 0.75 L CSF VDRL Lymph Enumerat CD4/CD8 Absolute CD3 Count % CD4 Cells Absolute CD4 Count % CD8 Cells Absolute CD19 Count T.pallidum Ab (FTA-ABS) HIV-1 RNA PCR copies/ml HIV-1 RNA (PCR) log Miscellaneous Test 09/18/18 09/19/18 09/19/18 12:46 04:57 04:57 WBC 2.1 L RBC Hgb 11.4 L Hct 34.2 L Plt Count Seg Neuts % (Manual) Lymphocytes % (Manual) Monocytes % (Manual) Eosinophils % (Manual) Basophils % (Manual) Nucleated RBC % Seg Neutrophils # Man Abs Lymphs (Manual) Lymphocytes # (Manual) PT INR APTT Heparin Anti-Xa Level POC ABG pH POC ABG pCO2 POC ABG pO2 Sodium Potassium Chloride Carbon Dioxide 19 L BUN 6 L Creatinine Glucose POC Glucose Lactic Acid Calcium 7.9 L Phosphorus AST ALT Total Creatine Kinase Total Protein Albumin Vitamin B12 TSH 5.190 H Free T4 CSF VDRL Lymph Enumerat CD4/CD8 Absolute CD3 Count % CD4 Cells Absolute CD4 Count % CD8 Cells Absolute CD19 Count T.pallidum Ab (FTA-ABS) HIV-1 RNA PCR copies/ml HIV-1 RNA (PCR) log Miscellaneous Test 09/19/18 09/19/18 09/20/18 15:00 15:00 05:33 WBC RBC Hgb Hct Plt Count Seg Neuts % (Manual) Lymphocytes % (Manual) Monocytes % (Manual) Eosinophils % (Manual) Basophils % (Manual) Nucleated RBC % Seg Neutrophils # Man Abs Lymphs (Manual) Lymphocytes # (Manual) PT INR APTT Heparin Anti-Xa Level POC ABG pH POC ABG pCO2 POC ABG pO2 Sodium 136 L Potassium Chloride Carbon Dioxide 19 L BUN 7 L Creatinine Glucose POC Glucose Lactic Acid Calcium Phosphorus AST ALT Total Creatine Kinase Total Protein Albumin Vitamin B12 TSH Free T4 CSF VDRL Reactive 1:4 H Lymph Enumerat CD4/CD8 Absolute CD3 Count % CD4 Cells Absolute CD4 Count % CD8 Cells Absolute CD19 Count T.pallidum Ab (FTA-ABS) HIV-1 RNA PCR copies/ml HIV-1 RNA (PCR) log Miscellaneous Test Flexitest 1 H 09/20/18 09/21/18 09/21/18 06:52 01:06 03:49 WBC 2.5 L RBC Hgb Hct Plt Count Seg Neuts % (Manual) Lymphocytes % (Manual) Monocytes % (Manual) Eosinophils % (Manual) Basophils % (Manual) Nucleated RBC % Seg Neutrophils # Man Abs Lymphs (Manual) Lymphocytes # (Manual) PT INR APTT Heparin Anti-Xa Level POC ABG pH 7.159 L POC ABG pCO2 32.9 L 70.0 H POC ABG pO2 62 L 254 H Sodium Potassium Chloride Carbon Dioxide BUN Creatinine Glucose POC Glucose Lactic Acid Calcium Phosphorus AST ALT Total Creatine Kinase Total Protein Albumin Vitamin B12 TSH Free T4 CSF VDRL Lymph Enumerat CD4/CD8 Absolute CD3 Count % CD4 Cells Absolute CD4 Count % CD8 Cells Absolute CD19 Count T.pallidum Ab (FTA-ABS) HIV-1 RNA PCR copies/ml HIV-1 RNA (PCR) log Miscellaneous Test 09/21/18 09/21/18 09/21/18 04:15 04:15 04:25 WBC 3.1 L RBC Hgb 11.6 L Hct Plt Count Seg Neuts % (Manual) Lymphocytes % (Manual) Monocytes % (Manual) 12.0 H Eosinophils % (Manual) Basophils % (Manual) Nucleated RBC % Seg Neutrophils # Man 1.6 L Abs Lymphs (Manual) Lymphocytes # (Manual) 0.5 L PT INR APTT Heparin Anti-Xa Level POC ABG pH POC ABG pCO2 POC ABG pO2 Sodium Potassium 6.1 H* D Chloride Carbon Dioxide 19 L BUN Creatinine Glucose 108 H POC Glucose Lactic Acid Calcium Phosphorus AST ALT Total Creatine Kinase 685 H Total Protein Albumin Vitamin B12 TSH Free T4 CSF VDRL Lymph Enumerat CD4/CD8 Absolute CD3 Count % CD4 Cells Absolute CD4 Count % CD8 Cells Absolute CD19 Count T.pallidum Ab (FTA-ABS) HIV-1 RNA PCR copies/ml HIV-1 RNA (PCR) log Miscellaneous Test 09/21/18 09/21/18 09/21/18 09:59 10:07 11:00 WBC RBC Hgb 11.7 L Hct Plt Count Seg Neuts % (Manual) Lymphocytes % (Manual) Monocytes % (Manual) Eosinophils % (Manual) Basophils % (Manual) Nucleated RBC % Seg Neutrophils # Man Abs Lymphs (Manual) Lymphocytes # (Manual) PT INR APTT Heparin Anti-Xa Level POC ABG pH 7.301 L POC ABG pCO2 POC ABG pO2 109 H Sodium Potassium 6.5 H* Chloride Carbon Dioxide 18 L BUN Creatinine 2.1 H D Glucose POC Glucose Lactic Acid Calcium 8.1 L Phosphorus AST 94 H ALT Total Creatine Kinase Total Protein Albumin 2.8 L Vitamin B12 TSH Free T4 CSF VDRL Lymph Enumerat CD4/CD8 Absolute CD3 Count % CD4 Cells Absolute CD4 Count % CD8 Cells Absolute CD19 Count T.pallidum Ab (FTA-ABS) HIV-1 RNA PCR copies/ml HIV-1 RNA (PCR) log Miscellaneous Test 09/21/18 09/21/18 09/21/18 15:00 21:54 21:54 WBC RBC Hgb Hct Plt Count Seg Neuts % (Manual) Lymphocytes % (Manual) Monocytes % (Manual) Eosinophils % (Manual) Basophils % (Manual) Nucleated RBC % Seg Neutrophils # Man Abs Lymphs (Manual) Lymphocytes # (Manual) PT 19.9 H INR 1.65 H APTT 40.9 H Heparin Anti-Xa Level 0.98 H POC ABG pH POC ABG pCO2 POC ABG pO2 Sodium Potassium 5.2 H Chloride Carbon Dioxide BUN Creatinine Glucose POC Glucose Lactic Acid Calcium Phosphorus AST ALT Total Creatine Kinase Total Protein Albumin Vitamin B12 TSH Free T4 CSF VDRL Lymph Enumerat CD4/CD8 Absolute CD3 Count % CD4 Cells Absolute CD4 Count % CD8 Cells Absolute CD19 Count T.pallidum Ab (FTA-ABS) HIV-1 RNA PCR copies/ml HIV-1 RNA (PCR) log Miscellaneous Test 09/21/18 09/22/18 09/22/18 22:57 03:01 05:27 WBC RBC Hgb Hct Plt Count Seg Neuts % (Manual) Lymphocytes % (Manual) Monocytes % (Manual) Eosinophils % (Manual) Basophils % (Manual) Nucleated RBC % Seg Neutrophils # Man Abs Lymphs (Manual) Lymphocytes # (Manual) PT INR APTT Heparin Anti-Xa Level POC ABG pH POC ABG pCO2 32.7 L POC ABG pO2 Sodium Potassium Chloride Carbon Dioxide BUN Creatinine Glucose POC Glucose 124 H 128 H Lactic Acid Calcium Phosphorus AST ALT Total Creatine Kinase Total Protein Albumin Vitamin B12 TSH Free T4 CSF VDRL Lymph Enumerat CD4/CD8 Absolute CD3 Count % CD4 Cells Absolute CD4 Count % CD8 Cells Absolute CD19 Count T.pallidum Ab (FTA-ABS) HIV-1 RNA PCR copies/ml HIV-1 RNA (PCR) log Miscellaneous Test 09/22/18 09/22/18 09/22/18 07:00 07:00 11:32 WBC 1.8 L* RBC 3.59 L Hgb 10.1 L Hct 30.8 L Plt Count 126 L Seg Neuts % (Manual) Lymphocytes % (Manual) Monocytes % (Manual) Eosinophils % (Manual) Basophils % (Manual) Nucleated RBC % Seg Neutrophils # Man Abs Lymphs (Manual) Lymphocytes # (Manual) PT INR APTT Heparin Anti-Xa Level POC ABG pH POC ABG pCO2 POC ABG pO2 Sodium Potassium Chloride Carbon Dioxide BUN 27 H Creatinine 2.0 H Glucose 128 H POC Glucose 123 H Lactic Acid Calcium 6.9 L Phosphorus AST ALT Total Creatine Kinase Total Protein Albumin Vitamin B12 TSH Free T4 CSF VDRL Lymph Enumerat CD4/CD8 Absolute CD3 Count % CD4 Cells Absolute CD4 Count % CD8 Cells Absolute CD19 Count T.pallidum Ab (FTA-ABS) HIV-1 RNA PCR copies/ml HIV-1 RNA (PCR) log Miscellaneous Test 09/22/18 09/22/18 09/22/18 15:52 18:18 23:52 WBC RBC Hgb Hct Plt Count Seg Neuts % (Manual) Lymphocytes % (Manual) Monocytes % (Manual) Eosinophils % (Manual) Basophils % (Manual) Nucleated RBC % Seg Neutrophils # Man Abs Lymphs (Manual) Lymphocytes # (Manual) PT INR APTT Heparin Anti-Xa Level POC ABG pH POC ABG pCO2 48.7 H POC ABG pO2 Sodium Potassium Chloride Carbon Dioxide BUN Creatinine Glucose POC Glucose 110 H 124 H Lactic Acid Calcium Phosphorus AST ALT Total Creatine Kinase Total Protein Albumin Vitamin B12 TSH Free T4 CSF VDRL Lymph Enumerat CD4/CD8 Absolute CD3 Count % CD4 Cells Absolute CD4 Count % CD8 Cells Absolute CD19 Count T.pallidum Ab (FTA-ABS) HIV-1 RNA PCR copies/ml HIV-1 RNA (PCR) log Miscellaneous Test 09/23/18 09/23/18 09/23/18 04:10 05:55 05:55 WBC RBC Hgb 10.0 L Hct 30.3 L Plt Count 117 L Seg Neuts % (Manual) Lymphocytes % (Manual) Monocytes % (Manual) Eosinophils % (Manual) Basophils % (Manual) Nucleated RBC % Seg Neutrophils # Man Abs Lymphs (Manual) Lymphocytes # (Manual) PT INR APTT Heparin Anti-Xa Level 0.26 L POC ABG pH POC ABG pCO2 POC ABG pO2 144 H Sodium Potassium Chloride Carbon Dioxide BUN Creatinine Glucose POC Glucose Lactic Acid Calcium Phosphorus AST ALT Total Creatine Kinase Total Protein Albumin Vitamin B12 TSH Free T4 CSF VDRL Lymph Enumerat CD4/CD8 Absolute CD3 Count % CD4 Cells Absolute CD4 Count % CD8 Cells Absolute CD19 Count T.pallidum Ab (FTA-ABS) HIV-1 RNA PCR copies/ml HIV-1 RNA (PCR) log Miscellaneous Test 09/23/18 09/23/18 09/23/18 08:10 08:10 23:57 WBC 1.3 L* RBC 3.53 L Hgb 9.9 L Hct 30.0 L Plt Count 119 L Seg Neuts % (Manual) Lymphocytes % (Manual) Monocytes % (Manual) Eosinophils % (Manual) Basophils % (Manual) Nucleated RBC % Seg Neutrophils # Man Abs Lymphs (Manual) Lymphocytes # (Manual) PT INR APTT Heparin Anti-Xa Level POC ABG pH POC ABG pCO2 POC ABG pO2 Sodium Potassium Chloride Carbon Dioxide BUN Creatinine Glucose 122 H POC Glucose 115 H Lactic Acid Calcium 6.9 L Phosphorus AST ALT Total Creatine Kinase Total Protein Albumin Vitamin B12 TSH Free T4 CSF VDRL Lymph Enumerat CD4/CD8 Absolute CD3 Count % CD4 Cells Absolute CD4 Count % CD8 Cells Absolute CD19 Count T.pallidum Ab (FTA-ABS) HIV-1 RNA PCR copies/ml HIV-1 RNA (PCR) log Miscellaneous Test 09/24/18 09/24/18 09/24/18 12:04 14:42 18:10 WBC RBC Hgb Hct Plt Count Seg Neuts % (Manual) Lymphocytes % (Manual) Monocytes % (Manual) Eosinophils % (Manual) Basophils % (Manual) Nucleated RBC % Seg Neutrophils # Man Abs Lymphs (Manual) Lymphocytes # (Manual) PT INR APTT Heparin Anti-Xa Level 0.76 H POC ABG pH POC ABG pCO2 POC ABG pO2 Sodium Potassium Chloride Carbon Dioxide BUN Creatinine Glucose POC Glucose 111 H 138 H Lactic Acid Calcium Phosphorus AST ALT Total Creatine Kinase Total Protein Albumin Vitamin B12 TSH Free T4 CSF VDRL Lymph Enumerat CD4/CD8 Absolute CD3 Count % CD4 Cells Absolute CD4 Count % CD8 Cells Absolute CD19 Count T.pallidum Ab (FTA-ABS) HIV-1 RNA PCR copies/ml HIV-1 RNA (PCR) log Miscellaneous Test 09/25/18 09/25/18 09/25/18 03:45 04:24 14:20 WBC RBC Hgb 9.7 L Hct 29.4 L Plt Count 104 L Seg Neuts % (Manual) Lymphocytes % (Manual) Monocytes % (Manual) Eosinophils % (Manual) Basophils % (Manual) Nucleated RBC % Seg Neutrophils # Man Abs Lymphs (Manual) Lymphocytes # (Manual) PT INR APTT Heparin Anti-Xa Level POC ABG pH 7.460 H POC ABG pCO2 32.9 L POC ABG pO2 Sodium Potassium 3.5 L Chloride 110.3 H Carbon Dioxide BUN Creatinine Glucose 105 H POC Glucose Lactic Acid Calcium 6.7 L Phosphorus AST 633 H ALT 481 H Total Creatine Kinase Total Protein 4.8 L D Albumin 1.9 L Vitamin B12 TSH Free T4 CSF VDRL Lymph Enumerat CD4/CD8 Absolute CD3 Count % CD4 Cells Absolute CD4 Count % CD8 Cells Absolute CD19 Count T.pallidum Ab (FTA-ABS) HIV-1 RNA PCR copies/ml HIV-1 RNA (PCR) log Miscellaneous Test 09/26/18 09/26/18 09/26/18 06:15 06:15 10:43 WBC 1.2 L* RBC 3.32 L Hgb 9.2 L Hct 28.6 L Plt Count 97 L Seg Neuts % (Manual) 24.0 L Lymphocytes % (Manual) 43.0 H Monocytes % (Manual) 19.0 H Eosinophils % (Manual) 8.0 H Basophils % (Manual) 2.0 H Nucleated RBC % 3.0 H Seg Neutrophils # Man 0.0 L Abs Lymphs (Manual) Lymphocytes # (Manual) 0.0 L PT INR APTT Heparin Anti-Xa Level POC ABG pH 7.459 H POC ABG pCO2 POC ABG pO2 141 H Sodium Potassium Chloride 112.8 H Carbon Dioxide BUN Creatinine Glucose 110 H POC Glucose Lactic Acid Calcium 7.0 L Phosphorus 0.90 L* AST 362 H ALT 360 H Total Creatine Kinase Total Protein 4.9 L Albumin 1.5 L Vitamin B12 TSH Free T4 CSF VDRL Lymph Enumerat CD4/CD8 Absolute CD3 Count % CD4 Cells Absolute CD4 Count % CD8 Cells Absolute CD19 Count T.pallidum Ab (FTA-ABS) HIV-1 RNA PCR copies/ml HIV-1 RNA (PCR) log Miscellaneous Test 09/26/18 09/27/18 09/28/18 13:56 04:11 07:49 WBC RBC Hgb 9.1 L Hct 29.1 L Plt Count 96 L Seg Neuts % (Manual) Lymphocytes % (Manual) Monocytes % (Manual) Eosinophils % (Manual) Basophils % (Manual) Nucleated RBC % Seg Neutrophils # Man Abs Lymphs (Manual) Lymphocytes # (Manual) PT INR APTT Heparin Anti-Xa Level POC ABG pH POC ABG pCO2 POC ABG pO2 Sodium 146 H Potassium Chloride 111.6 H Carbon Dioxide BUN Creatinine Glucose POC Glucose 135 H Lactic Acid Calcium 7.4 L Phosphorus AST ALT Total Creatine Kinase Total Protein Albumin Vitamin B12 TSH Free T4 CSF VDRL Lymph Enumerat CD4/CD8 Absolute CD3 Count % CD4 Cells Absolute CD4 Count % CD8 Cells Absolute CD19 Count T.pallidum Ab (FTA-ABS) HIV-1 RNA PCR copies/ml HIV-1 RNA (PCR) log Miscellaneous Test 09/28/18 09/29/18 09/29/18 10:43 05:00 05:00 WBC 1.2 L* RBC 3.13 L Hgb 8.6 L Hct 27.3 L Plt Count 137 L Seg Neuts % (Manual) Lymphocytes % (Manual) Monocytes % (Manual) 16.0 H Eosinophils % (Manual) Basophils % (Manual) Nucleated RBC % 4.0 H Seg Neutrophils # Man 0.5 L Abs Lymphs (Manual) Lymphocytes # (Manual) 0.3 L PT INR APTT Heparin Anti-Xa Level POC ABG pH 7.300 L POC ABG pCO2 53.9 H POC ABG pO2 Sodium 147 H Potassium 3.4 L Chloride 114.5 H Carbon Dioxide BUN Creatinine Glucose POC Glucose Lactic Acid Calcium 7.7 L Phosphorus AST 69 H ALT 110 H Total Creatine Kinase Total Protein 5.2 L Albumin 1.9 L Vitamin B12 TSH Free T4 CSF VDRL Lymph Enumerat CD4/CD8 Absolute CD3 Count % CD4 Cells Absolute CD4 Count % CD8 Cells Absolute CD19 Count T.pallidum Ab (FTA-ABS) HIV-1 RNA PCR copies/ml HIV-1 RNA (PCR) log Miscellaneous Test 09/29/18 09/29/18 09/30/18 06:07 13:22 05:19 WBC 0.9 L* RBC 3.03 L Hgb 8.6 L Hct 25.9 L Plt Count Seg Neuts % (Manual) Lymphocytes % (Manual) Monocytes % (Manual) Eosinophils % (Manual) Basophils % (Manual) Nucleated RBC % Seg Neutrophils # Man Abs Lymphs (Manual) Lymphocytes # (Manual) PT INR APTT Heparin Anti-Xa Level POC ABG pH POC ABG pCO2 46.9 H POC ABG pO2 Sodium Potassium Chloride Carbon Dioxide BUN Creatinine Glucose POC Glucose 109 H Lactic Acid Calcium Phosphorus AST ALT Total Creatine Kinase Total Protein Albumin Vitamin B12 TSH Free T4 CSF VDRL Lymph Enumerat CD4/CD8 Absolute CD3 Count % CD4 Cells Absolute CD4 Count % CD8 Cells Absolute CD19 Count T.pallidum Ab (FTA-ABS) HIV-1 RNA PCR copies/ml HIV-1 RNA (PCR) log Miscellaneous Test 09/30/18 09/30/18 09/30/18 05:19 11:14 23:28 WBC RBC Hgb Hct Plt Count Seg Neuts % (Manual) Lymphocytes % (Manual) Monocytes % (Manual) Eosinophils % (Manual) Basophils % (Manual) Nucleated RBC % Seg Neutrophils # Man Abs Lymphs (Manual) Lymphocytes # (Manual) PT INR APTT Heparin Anti-Xa Level 0.72 H POC ABG pH POC ABG pCO2 46.6 H POC ABG pO2 Sodium 150 H Potassium Chloride 115.2 H Carbon Dioxide BUN Creatinine Glucose POC Glucose Lactic Acid Calcium 7.9 L Phosphorus AST ALT Total Creatine Kinase Total Protein Albumin Vitamin B12 TSH Free T4 CSF VDRL Lymph Enumerat CD4/CD8 Absolute CD3 Count % CD4 Cells Absolute CD4 Count % CD8 Cells Absolute CD19 Count T.pallidum Ab (FTA-ABS) HIV-1 RNA PCR copies/ml HIV-1 RNA (PCR) log Miscellaneous Test 10/01/18 10/01/18 04:55 04:55 WBC 0.9 L* RBC 3.01 L Hgb 8.4 L Hct 26.0 L Plt Count Seg Neuts % (Manual) Lymphocytes % (Manual) Monocytes % (Manual) Eosinophils % (Manual) Basophils % (Manual) Nucleated RBC % Seg Neutrophils # Man Abs Lymphs (Manual) Lymphocytes # (Manual) PT INR APTT Heparin Anti-Xa Level POC ABG pH POC ABG pCO2 POC ABG pO2 Sodium 147 H Potassium 3.4 L Chloride 113.1 H Carbon Dioxide BUN 22 H Creatinine Glucose POC Glucose Lactic Acid Calcium 7.3 L Phosphorus AST ALT Total Creatine Kinase Total Protein Albumin Vitamin B12 TSH Free T4 CSF VDRL Lymph Enumerat CD4/CD8 Absolute CD3 Count % CD4 Cells Absolute CD4 Count % CD8 Cells Absolute CD19 Count T.pallidum Ab (FTA-ABS) HIV-1 RNA PCR copies/ml HIV-1 RNA (PCR) log Miscellaneous Test Allied health notes reviewed: nursing
--- NOTE | 2018-10-01 14:40 | Progress Note ---
Assessment and Plan Cultures: 09/11/2018 blood culture: no growth 09/13/2018 serum cryptococcus ag neg 09/14/2018 CSF cryptococcus ag neg 09/14/2018 stool Nona 09/15/2018 stool +Giardia ag 09/19/2018 CSF cryptococcus ag neg 09/21/2018 tracheal aspirate culture: Nona albicans 09/23/2018 blood culture: No growth 09/23/2018 Fungal blood culture: no growth thus far A/P: 33 y/o male with no PMH; admitted on 09/11/2018 due to 4 days-AMS/behavioral changes, nausea, vomiting, diarrhea, weight loss and cough: 1) Low grade fevers: shock resolved. ?HIV related, v/s CMV related. Etiology unclear. Cultures have negative thus far. Remains on ceftriaxone, flagyl for now. 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 WBC worse today, could be from CMV v/s ganciclovir. 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 Generally, we do not a significant change in th e log value in the first week. Transaminitis could be from CMV v/s shock liver, much improved. 3) Acute respiratory failure: still on the vent, mainly due to mental status issues. PJP DFA negative. CXR does not suggest pneumonia 4) Acute encephalopathy: possibly from neurosyphilis v/s CMV encephalitis v/s metabolic etiology. Of note, MRI did not show ventriculitis. Blood CMV DNA PCR = 1,058,978. CSF YAYO virus DNA PCR neg. Toxo IgG negative. Hypernatremia improving gradually. 5) Neurosyphilis: CSF VDRL positive, was on Penicillin G, given decline in clinical condition, and to avoid double beta-lactam abx and increased seizure risk, continue high dose IV Ceftriaxone which does have activity against Treponema pallidum. 6) Diarrhea: likely due to Giardiasis as Giardia antigen positive in stool, in immunocompromised patient, on flagyl, will complete 21 days. 7) Oral candidiasis: on fluconazole. 8) A.fib: cardiology following. On Amiodarone. 9) HIV/AIDS: newly diagnosed. Risk factor is MSM behavior. CD4=4. VL=50,700. 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 We started him on Tenofovir, Emtricitabine + Dolutegravir on 09/30/2018, watch closely for IRIS. 10) Neutropenia/thrombocytopenia: possibly from HIV/CMV myelosuppression +/- sepsis. Can also get worse from ganciclovir. r/o disseminated MAC, thus far cultures negative. 11) MAL: resolved. creatinine stable and improved. Recs: - F/U CMV DNA PCR 09/26/2018 is 710K, 5.85 log. Generally, we do not a significant change in the log value in the first week. Continue IV Ganciclovir 5 mg/kg q12 hrs, will need to continue till CMV PCR is down to <200. Repeat CMV PCR ordered for Wednesday morning - continue IV Ceftriaxone 2 gm q12 hrs - continue IV Flagyl for diarrhea from Giardiasis - continue atovaquone and azithromycin prophylaxis - continue fluconazole D18, will plan for 21 days of therapy to also cover for esophagitis and then low dose and continue as prophylaxis - continue HAART: Tenofovir, Emtricitabine + Dolutegravir watch closely for IRIS - monitor daily CBC, BMP - tentative plan is to d/c Ceftriaxone and Flagyl on Wednesday and switch back to IV Penicillin Updated his sister on the phone, she had several questions that were answered. Will follow. Please call with questions. Maurizio Lopez MD [facility] C: [phone] O: [phone] F: [phone] Subjective Date of service: 10/01/18 Principal diagnosis: Severe sepsis; Ac hypoxemic Resp failure; [place]. Pneumonia; Ac encephalopathy Interval history: Low grade temp +. Diarrhea stable to slowing down per RN. Awake, but doesn't obey commands. Minimal vent settings. No other acute concerns. Objective - Exam Narrative Exam: Physical Exam: Constitutional: intubated, on the event, awake but doesn't follow commands Head, Ears, Nose: Normocephalic, atraumatic. Eyes: Conjunctivae/corneas clear. No icterus. No ptosis. Neck: Supple, no meningeal signs Oral: intubated. Cardiovascular: S1, S2 normal. Respiratory: Good air entry, clear to auscultation bilaterally GI: Soft, bowel sounds normal. No peritoneal signs, Rectal tube + with diarrhea Musculoskeletal: No pedal edema, no cyanosis. Skin: No rash or abscess Hem/Lymphatic: No palpable cervical or supraclavicular nodes. No lymphangitis Psych: no agitation Neurological: intubated, on the vent, awake, but doesn't follow commands - Constitutional Vitals: Vital Signs Temp Pulse Resp BP Pulse Ox 99.0 F 82 18 119/72 100 10/01/18 12:00 10/01/18 13:00 10/01/18 13:00 10/01/18 13:00 10/01/18 13:00 Temperature -Last 24 Hours Temperature 99.0 F Temperature 99.3 F Temperature 98.5 F Temperature 100 F Temperature 100.6 F Temperature 98.6 F - Labs CBC & Chem 7: 10/01/18 04:55 10/01/18 04:55 Labs: Abnormal lab results 09/30/18 10/01/18 10/01/18 Range/Units 23:28 04:55 04:55 WBC 0.9 L* (4.5-11.0) K/mm3 RBC 3.01 L (3.65-5.03) M/mm3 Hgb 8.4 L (11.8-15.2) gm/dl Hct 26.0 L (35.5-45.6) % Heparin Anti-Xa Level 0.72 H (0.3-0.7) U.I./ml Sodium 147 H (137-145) mmol/L Potassium 3.4 L (3.6-5.0) mmol/L Chloride 113.1 H (98-107) mmol/L BUN 22 H (9-20) mg/dL Calcium 7.3 L (8.4-10.2) mg/dL
[2018-10-02] MEDS: CYTOVENE 500 MG in NACL 0.9% 250ML 250 ML IV SCH ×2 (00:30→16:09)
[2018-10-02] MEDS: PROVENTIL IH SCH ×4 (01:23→19:33)
[2018-10-02] MEDS: SYNTHROID PO SCH (06:16)
[2018-10-02] MEDS: ROBINUL PO SCH ×3 (06:16→22:48)
[2018-10-02] MEDS: FLAGYL PO SCH ×3 (06:16→22:48)
[2018-10-02] MEDS: D5W 1,000 ML IV SCH (06:18)
[2018-10-02] MEDS: HEPARIN/ 0.45% NACL-25,000 UNIT/500 ML 25,000 UNIT/500 ML BAG IV SCH (06:25)
[2018-10-02 07:46] LABS: Hematocrit 24.9 % (35.5-45.6); Hemoglobin 8.4 gm/dl (11.8-15.2); Mean Corpuscular HGB Conc 34 % (32-34); Mean Corpuscular Volume 85 fl (84-94); Platelet Count 150 K/mm3 (140-440); Red Blood Count 2.92 M/mm3 (3.65-5.03); Red Cell Distribution Width 14.7 % (13.2-15.2)
[2018-10-02 07:55] LABS: BUN/Creatinine Ratio 24; Blood Urea Nitrogen 19 mg/dL (9-20); Calcium 7.6 mg/dL (8.4-10.2); Hemolysis Index 2
--- NOTE | 2018-10-02 08:20 | Progress Note ---
Assessment and Plan Assessment and plan: Severe Sepsis. Etiology secondary to bacterial pneumonia +/- gastroenteritis with newly diagnosed with HIV. Continue IV antibiotics per ID. Acute hypoxemic respiratory failure. Etiology secondary to sepsis/multifocal pneumonia with probable concomitant aspiration. Intubated, on vent. Pulm following Bilateral pneumonia. Etiology likely secondary to PJP Pneumonia +/- aspiration. Chest x-ray, CT scan reveals multifocal pneumonia. Tracheal aspirate with Nona albicans. Toxic metabolic encephalopathy. 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 Of note, MRI did not show ventriculitis. Blood CMV DNA PCR = 1,058,978. CSF YAYO virus DNA PCR neg. Gastroenteritis. Follow-up stool studies and CT scan of the abdomen and pelvis--check for colitis when patient is hemodynamically stable. Continue antibiotics per ID A. fib with RVR. Converted to NSR. cont Amiodarone 200 bid Cont Heparin drip. 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 Diarrhea. Resolved, etiology likely secondary to Giardia. Giardia antigen positive in stool. Oral candidiasis. Continue fluconazole. HIV/AIDS. New Diagnosis. Neutropenia/thrombocytopenia. Likely from HIV myelosuppression, sepsis Fever. Hypernatremia. Improved after started D5W Recheck BMP in am Prognosis is guarded. The high probability of a clinically significant, sudden or life threatening deterioration of the [4] system(s) required my full and direct attention, intervention and personal management. The aggregate critical care time was [31] minutes. This time is in addition to time spent performing reported procedures but includes the following: [x] Data Review and interpretation [x] Patient assessment and monitoring of vital signs [x] Documentation [x] Medication orders and management History Interval history: Patient transferred to ICU,now intubated, on vent was having fever. No fever past 24 hours. Hospitalist Physical - Physical exam Narrative exam: GEN: Intubated, on ventilator HEENT: Normocephalic, atraumatic, Neck: supple, No JVD Lungs: Bilateral coarse breath sounds, Heart:S1 and S2 regular, no murmurs, rubs or gallop, Abd:soft, non tender, non distended, normal bowel sounds Ext: No edema, no clubbing or cyanosis Neuro: Intubated - Constitutional Vitals: Temp Pulse Resp BP Pulse Ox 97.6 F 87 19 111/57 100 10/02/18 00:00 10/02/18 07:40 10/02/18 07:40 10/02/18 07:31 10/02/18 07:31 General appearance: Present: other (orally intubated) Results - Labs CBC & Chem 7: 10/02/18 07:15 10/02/18 07:15 Labs: Laboratory Last Values WBC 0.7 K/mm3 (4.5-11.0) L* 10/02/18 07:15 RBC 2.92 M/mm3 (3.65-5.03) L 10/02/18 07:15 Hgb 8.4 gm/dl (11.8-15.2) L 10/02/18 07:15 Hct 24.9 % (35.5-45.6) L 10/02/18 07:15 MCV 85 fl (84-94) 10/02/18 07:15 MCH 29 pg (28-32) 10/02/18 07:15 MCHC 34 % (32-34) 10/02/18 07:15 RDW 14.7 % (13.2-15.2) 10/02/18 07:15 Plt Count 150 K/mm3 (140-440) 10/02/18 07:15 [place] % (Auto) Interior Wirer 09/29/18 05:00 Baso % (Auto) Interior Wirer 09/29/18 05:00 Add Manual Diff Complete 09/29/18 05:00 Total Counted 25 09/29/18 05:00 Seg Neutrophils % Interior Wirer 09/29/18 05:00 Seg Neuts % (Manual) 40.0 % (40.0-70.0) 09/29/18 05:00 Band Neutrophils % 4.0 % 09/29/18 05:00 Lymphocytes % (Manual) 28.0 % (13.4-35.0) 09/29/18 05:00 Reactive Lymphs % (Man) 0 % 09/29/18 05:00 Monocytes % (Manual) 16.0 % (0.0-7.3) H 09/29/18 05:00 Eosinophils % (Manual) 0 % (0.0-4.3) 09/29/18 05:00 Basophils % (Manual) 0 % (0.0-1.8) 09/29/18 05:00 Metamyelocytes % 8.0 % 09/29/18 05:00 Myelocytes % 0 % 09/29/18 05:00 Promyelocytes % 4.0 % 09/29/18 05:00 Blast Cells % 0 % 09/29/18 05:00 Nucleated RBC % 4.0 % (0.0-0.9) H 09/29/18 05:00 Seg Neutrophils # Man 0.5 K/mm3 (1.8-7.7) L 09/29/18 05:00 Band Neutrophils # 0.0 K/mm3 09/29/18 05:00 Abs Lymphs (Manual) 309 cells/uL (850-3900) L 09/13/18 12:29 Lymphocytes # (Manual) 0.3 K/mm3 (1.2-5.4) L 09/29/18 05:00 Abs React Lymphs (Man) 0.0 K/mm3 09/29/18 05:00 Monocytes # (Manual) 0.2 K/mm3 (0.0-0.8) 09/29/18 05:00 Eosinophils # (Manual) 0.0 K/mm3 (0.0-0.4) 09/29/18 05:00 Basophils # (Manual) 0.0 K/mm3 (0.0-0.1) 09/29/18 05:00 Metamyelocytes # 0.1 K/mm3 09/29/18 05:00 Myelocytes # 0.0 K/mm3 09/29/18 05:00 Promyelocytes # 0.0 K/mm3 09/29/18 05:00 Blast Cells # 0.0 K/mm3 09/29/18 05:00 WBC Morphology Not Reportable 09/29/18 05:00 Hypersegmented Neuts Not Reportable 09/29/18 05:00 Hyposegmented Neuts Not Reportable 09/29/18 05:00 Hypogranular Neuts Not Reportable 09/29/18 05:00 Smudge Cells Not Reportable 09/29/18 05:00 Toxic Granulation Not Reportable 09/29/18 05:00 Toxic Vacuolation Not Reportable 09/29/18 05:00 Dohle Bodies Not Reportable 09/29/18 05:00 Pelger-Huet Anomaly Not Reportable 09/29/18 05:00 Giovanna Rods Not Reportable 09/29/18 05:00 Platelet Estimate Appears normal 09/29/18 05:00 Clumped Platelets Not Reportable 09/29/18 05:00 Plt Clumps, EDTA Not Reportable 09/29/18 05:00 Large Platelets Few 09/29/18 05:00 Giant Platelets Not Reportable 09/29/18 05:00 Platelet Satelliting Not Reportable 09/29/18 05:00 Plt Morphology Comment Not Reportable 09/29/18 05:00 RBC Morphology Not Reportable 09/29/18 05:00 Dimorphic RBCs Not Reportable 09/29/18 05:00 Polychromasia Not Reportable 09/29/18 05:00 Hypochromasia 1+ 09/29/18 05:00 Poikilocytosis Not Reportable 09/29/18 05:00 Anisocytosis 1+ 09/29/18 05:00 Microcytosis Not Reportable 09/29/18 05:00 Macrocytosis Rare 09/29/18 05:00 Spherocytes Not Reportable 09/29/18 05:00 Pappenheimer Bodies Not Reportable 09/29/18 05:00 Sickle Cells Not Reportable 09/29/18 05:00 Target Cells Few 09/29/18 05:00 Tear Drop Cells Not Reportable 09/29/18 05:00 Ovalocytes 2+ 09/29/18 05:00 Stomatocytes 1+ 09/29/18 05:00 Helmet Cells Not Reportable 09/29/18 05:00 [place] Bodies Not Reportable 09/29/18 05:00 [place] Rings Not Reportable 09/29/18 05:00 [place] Cells Not Reportable 09/29/18 05:00 Bite Cells Not Reportable 09/29/18 05:00 Crenated Cell Not Reportable 09/29/18 05:00 Elliptocytes Few 09/29/18 05:00 Acanthocytes (Spur) Not Reportable 09/29/18 05:00 Rouleaux Not Reportable 09/29/18 05:00 Hemoglobin C Crystals Not Reportable 09/29/18 05:00 Schistocytes Not Reportable 09/29/18 05:00 Malaria parasites Not Reportable 09/29/18 05:00 Kieran Bodies Not Reportable 09/29/18 05:00 Hem Pathologist Commnt No 09/29/18 05:00 PT 19.9 Sec. (12.2-14.9) H 09/21/18 15:00 INR 1.65 (0.87-1.13) H 09/21/18 15:00 APTT 40.9 Sec. (24.2-36.6) H 09/21/18 15:00 Heparin Anti-Xa Level 0.62 U.I./ml (0.3-0.7) 10/01/18 07:40 POC ABG pH 7.387 (7.35-7.45) 10/01/18 13:06 POC ABG pCO2 44.1 (35-45) 10/01/18 13:06 POC ABG pO2 83 (80-105) 10/01/18 13:06 POC ABG HCO3 26.5 10/01/18 13:06 POC ABG Total CO2 28 10/01/18 13:06 POC ABG O2 Sat 96 10/01/18 13:06 POC ABG Base Excess 2 10/01/18 13:06 FiO2 25 % 10/01/18 13:06 Sodium 144 mmol/L (137-145) 10/02/18 07:15 Potassium 3.4 mmol/L (3.6-5.0) L 10/02/18 07:15 Chloride 108.3 mmol/L (98-107) H 10/02/18 07:15 Carbon Dioxide 26 mmol/L (22-30) 10/02/18 07:15 Anion Gap 13 mmol/L 10/02/18 07:15 BUN 19 mg/dL (9-20) 10/02/18 07:15 Creatinine 0.8 mg/dL (0.8-1.5) 10/02/18 07:15 Estimated GFR > 60 ml/min 10/02/18 07:15 BUN/Creatinine Ratio 24 % 10/02/18 07:15 Glucose 98 mg/dL (75-100) 10/02/18 07:15 POC Glucose 86 (70-105) 10/02/18 01:00 Lactic Acid 0.90 mmol/L (0.7-2.0) 09/11/18 20:17 Calcium 7.6 mg/dL (8.4-10.2) L 10/02/18 07:15 Phosphorus 3.10 mg/dL (2.5-4.5) D 09/27/18 04:11 Magnesium 1.80 mg/dL (1.7-2.3) 09/26/18 06:15 Total Bilirubin < 0.20 mg/dL (0.1-1.2) 09/29/18 05:00 Direct Bilirubin < 0.2 mg/dL (0-0.2) 09/13/18 07:31 AST 69 units/L (5-40) H 09/29/18 05:00 ALT 110 units/L (7-56) H 09/29/18 05:00 Alkaline Phosphatase 60 units/L (35-129) 09/29/18 05:00 Ammonia 47.0 umol/L (25-60) 09/16/18 11:41 Total Creatine Kinase 685 units/L (55-170) H 09/21/18 04:25 CK-MB (CK-2) 3.5 ng/mL (0.0-4.0) 09/21/18 04:25 CK-MB (CK-2) Rel Index 0.5 (0-4) 09/21/18 04:25 NT-Pro-B Natriuret Pep 145.9 pg/mL (0-450) 09/18/18 16:07 Total Protein 5.2 g/dL (6.3-8.2) L 09/29/18 05:00 Albumin 1.9 g/dL (3.9-5) L 09/29/18 05:00 Albumin/Globulin Ratio 0.6 % 09/29/18 05:00 Vitamin B12 934.5 pg/mL (211-911) H 09/16/18 11:41 TSH 5.190 mlU/mL (0.270-4.200) H 09/18/18 12:46 Free T4 0.75 ng/dL (0.76-1.46) L 09/18/18 12:46 Urine Color [place] (Yellow) 09/11/18 Unknown Urine Turbidity Clear (Clear) 09/11/18 Unknown Urine pH 5.0 (5.0-7.0) 09/11/18 Unknown Ur Specific [place] 1.016 (1.003-1.030) 09/11/18 Unknown Urine Protein <15 mg/dl mg/dL (Negative) 09/11/18 Unknown Urine Glucose (UA) Neg mg/dL (Negative) 09/11/18 Unknown Urine Ketones Neg mg/dL (Negative) 09/11/18 Unknown Urine Blood Sm (Negative) 09/11/18 Unknown Urine Nitrite Neg (Negative) 09/11/18 Unknown Urine Bilirubin Neg (Negative) 09/11/18 Unknown Urine Urobilinogen < 2.0 mg/dL (<2.0) 09/11/18 Unknown Ur Leukocyte Esterase Neg (Negative) 09/11/18 Unknown Urine WBC (Auto) 1.0 /HPF (0.0-6.0) 09/11/18 Unknown Urine RBC (Auto) 3.0 /HPF (0.0-6.0) 09/11/18 Unknown Urine Mucus Few /HPF 09/11/18 Unknown CSF Appearance Clear 09/19/18 15:00 CSF Color Colorless 09/19/18 15:00 CSF WBC 4 /mm3 (1-10) 09/19/18 15:00 CSF RBC 583 /mm3 (0-0) 09/19/18 15:00 CSF Seg Neutrophils 21.4 % (0-6) 09/19/18 15:00 CSF Lymphocytes % 71.4 % (40-80) 09/19/18 15:00 CSF Reactive Lymphs 0 % 09/19/18 15:00 CSF Monocytes % 7.1 % (15-45) 09/19/18 15:00 CSF Eosinophils % 0 % 09/19/18 15:00 CSF Basophils 0 % 09/19/18 15:00 CSF Pathologist Review C 09/19/18 15:00 CSF Glucose 32 mg/dL 09/19/18 15:00 CSF Total Protein 123 mg/dL 09/19/18 15:00 CSF VDRL Reactive 1:4 (Nonreactive) H 09/19/18 15:00 Vancomycin Trough 14.3 ug/mL (5.0-20.0) 09/25/18 14:45 Urine Opiates Screen Presumptive negative 09/17/18 15:52 Urine Methadone Screen Presumptive negative 09/17/18 15:52 Ur Barbiturates Screen Presumptive negative 09/17/18 15:52 Ur Phencyclidine Scrn Presumptive negative 09/17/18 15:52 Ur Amphetamines Screen Presumptive negative 09/17/18 15:52 U Benzodiazepines Scrn Presumptive negative 09/17/18 15:52 Urine Cocaine Screen Presumptive negative 09/17/18 15:52 U Marijuana (THC) Screen Presumptive negative 09/17/18 15:52 Drugs of Abuse Note Disclamer 09/17/18 15:52 Lymph Enumerat CD4/CD8 0.01 (0.86-5.00) L 09/13/18 12:29 % CD3 Cells 71 % (57-85) 09/13/18 12:29 Absolute CD3 Count 220 cells/uL (840-3060) L 09/13/18 12:29 % CD4 Cells 1 % (30-61) L 09/13/18 12:29 Absolute CD4 Count 4 cells/uL (490-1740) L 09/13/18 12:29 % CD8 Cells 70 % (12-42) H 09/13/18 12:29 Absolute CD8 Count 216 cells/uL (180-1170) 09/13/18 12:29 % CD19 Cells 17 % (6-29) 09/13/18 12:29 Absolute CD19 Count 54 cells/uL (110-660) L 09/13/18 12:29 RPR Titer 1:16 09/13/18 12:29 RPR Reactive (Nonreactive) 09/13/18 12:29 T.pallidum Ab (FTA-ABS) Reactive (Nonreactive) H 09/14/18 16:34 C. difficile Toxin A&B Negative (Negative) 09/12/18 05:30 CMV DNA PCR log millinery copyist/mL See scanned result 09/26/18 06:15 Hepatitis A IgM Ab Non-reactive (NonReactive) 09/13/18 12:29 Hep Bs Antigen Non-reactive (Negative) 09/13/18 12:29 Hep B Core IgM Ab Non-reactive (NonReactive) 09/13/18 12:29 Hepatitis C Antibody Non-reactive (NonReactive) 09/13/18 12:29 HIV-1 Antibody See scanned result 09/11/18 19:14 HIV-1 RNA PCR copies/ml 38985 Copies/mL H 09/13/18 12:29 HIV-1 RNA (PCR) log 4.71 Log cps/mL H 09/13/18 12:29 HIV-2 Ab (Immunoblot) See scanned result 09/11/18 19:14 HIV 1&2 Antibody Rapid Reactive (Non React) 09/11/18 19:14 HIV P24 Antigen Non react (Non React) 09/11/18 19:14 Influenza A (Rapid) Negative (Negative) 09/13/18 16:05 Influenza A (RT-PCR) Negative (Negative) 09/13/18 16:05 Influenza B (Rapid) Negative (Negative) 09/13/18 16:05 Influenza B (RT-PCR) Negative (Negative) 09/13/18 16:05 Toxoplasma IgG Ab <7.20 IU/mL (<7.20) 09/16/18 12:09 Miscellaneous Test see below 09/21/18 03:55 Nutrition/Malnutrition Assess - Dietary Evaluation Nutrition/Malnutrition Findings: Nutrition Notes Start: 09/12/18 17:45 Freq: Status: Active Protocol: Document 09/30/18 10:48 CT (Rec: 09/30/18 11:59 CT [id number]) Co-Sign 09/30/18 10:48 LP Nutrition Notes Initial or Follow up Reassessment Current Diagnosis Acute Kidney Injury Sepsis Respiratory Failure Other Pertinent Diagnosis HIV, bilat pneu, gastroenteritis, encephalopathy Current Diet TF- Vital High Protein at 70ml /hr Labs/Tests Na: 150 Pertinent Medications Reviewed. Height 6 ft Weight 115.4 kg [place] Body Weight (kg) 80.90 BMI 34.4 Subjective/Other Information Observed TF running at goal ( 70ml). Percent of energy/protein needs met: 97%/91% Burn Absent Trauma Absent #2 Nutrition Diagnosis Inadequate oral intake Diagnosis Progress(for reassessment Continues documentation) #1 Nutrition Diagnosis Malnutrition Diagnosis Progress(for reassessment Continues documentation) Is patient on ventilator? Yes Is Patient Ambulatory and/or Out of Bed No REE-([facility]-confined to bed) 2566.188 Kcal/Kg value to use for calculation 15 Approximate Energy Requirements Using 1731 kcal/Kg Calculation Used for Recommendations Kcal/kg Additional Notes Pro needs 2g/kg IBW: 162g/day Fluid needs 1ml/kcal Nutrition Intervention Change Diet Order: Continue TF Nutrition Support: Increase water flush to 150 q4h. Kcal 1,680 Protein (gm) 147 Fluid (mL) 1,404 Goal #1 Continue to meet at least 80% of PRO and kcal needs with TF. Follow-Up By: 10/04/18 Additional Comments F/U: stable TF and Na labs
[2018-10-02] MEDS: LOPRESSOR IV SCH ×3 (08:57→20:54)
[2018-10-02] MEDS: VIREAD PO SCH (09:00)
[2018-10-02] MEDS: TIVICAY PO SCH (09:00)
[2018-10-02] MEDS: ZITHROMAX PO SCH (09:00)
[2018-10-02] MEDS: CORDARONE PO SCH ×2 (09:01→22:49)
[2018-10-02] MEDS: MEPRON PO SCH ×2 (09:01→22:48)
[2018-10-02] MEDS: EMTRIVA PO SCH (09:01)
[2018-10-02] MEDS: PEPCID PO SCH ×2 (09:01→22:49)
[2018-10-02] MEDS: ROCEPHIN/NS 2 GM/100 ML 2 GM/100 ML BAG IV SCH ×2 (09:02→22:49)
[2018-10-02] MEDS: DIFLUCAN 200 ML IV SCH (09:02)
[2018-10-02] MEDS: SODIUM CHLORIDE FLUSH SYRINGE 10 ML IV SCH ×2 (10:00→22:55)
--- NOTE | 2018-10-02 10:54 | Progress Note ---
Assessment and Plan - Patient Problems (1) Acute kidney failure with tubular necrosis Current Visit: Yes Status: Acute Plan to address problem: Overall renal function is stable. Need for close monitoring while receiving IV ganciclovir. Remains non oliguric. Continue to monitor. . (2) Hypernatremia Current Visit: Yes Status: Acute Plan to address problem: free water flushes with TF now at 250 cc q4h. Patient is also being started on D5W @ 50cc/hr. Will monitor Hypernatremia is improving (3) Acute respiratory failure with hypoxia Current Visit: Yes Status: Acute Plan to address problem: Remains intubated. Recent Chest xray noted, with development of patchy infiltrates in the right lung. Further management per pulm/ICU (4) Hypokalemia Current Visit: Yes Status: Acute Plan to address problem: Replete per protocol to maintain levels above 3.5. 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 Will continue to monitor. Remains very lethargic with only spontaneously opening eyes. Does not follow commands. Continue to monitor (6) Pancytopenia Current Visit: Yes Status: Acute Plan to address problem: In the setting of CMV viremia, HIV/AIDS. Will defer to primary team. (7) HIV (human immunodeficiency virus infection) Current Visit: Yes Status: Chronic Plan to address problem: Management per ID recommendations. Subjective Date of service: 10/02/18 Principal diagnosis: Severe sepsis; Ac hypoxemic Resp failure; [place]. Pneumonia; Ac encephalopathy Interval history: No acute changes. Labs noted, renal function is stable, remains non oliguric. Continues on D5W at 50 cc/hr. Objective - Vital Signs Vital signs: Vital Signs - 12hr 10/01/18 10/01/18 10/01/18 23:00 23:31 23:38 Temperature Pulse Rate 78 77 77 Pulse Rate [ From Monitor] Pulse Rate [ Throughout] Respiratory 17 16 Rate Respiratory Rate [ Throughout] Blood Pressure 121/71 121/71 121/71 O2 Sat by Pulse 100 100 100 Oximetry 10/02/18 10/02/18 10/02/18 00:00 00:31 01:00 Temperature 97.6 F Pulse Rate 83 80 84 Pulse Rate [ 91 H From Monitor] Pulse Rate [ Throughout] Respiratory 22 14 20 Rate Respiratory Rate [ Throughout] Blood Pressure 131/77 131/77 131/75 O2 Sat by Pulse 100 100 100 Oximetry 10/02/18 10/02/18 10/02/18 01:24 01:31 01:35 Temperature Pulse Rate 84 Pulse Rate [ From Monitor] Pulse Rate [ 79 83 Throughout] Respiratory 12 Rate Respiratory 16 16 Rate [ Throughout] Blood Pressure 131/77 O2 Sat by Pulse 100 Oximetry 10/02/18 10/02/18 10/02/18 02:00 02:31 03:00 Temperature Pulse Rate 83 80 85 Pulse Rate [ From Monitor] Pulse Rate [ Throughout] Respiratory 18 17 20 Rate Respiratory Rate [ Throughout] Blood Pressure 119/71 119/71 129/77 O2 Sat by Pulse 100 100 100 Oximetry 10/02/18 10/02/18 10/02/18 03:31 03:33 04:00 Temperature 97.9 F Pulse Rate 79 82 82 Pulse Rate [ 82 From Monitor] Pulse Rate [ Throughout] Respiratory 16 18 Rate Respiratory Rate [ Throughout] Blood Pressure 129/77 129/77 123/67 O2 Sat by Pulse 100 100 100 Oximetry 10/02/18 10/02/18 10/02/18 04:31 05:00 05:31 Temperature Pulse Rate 82 85 83 Pulse Rate [ From Monitor] Pulse Rate [ Throughout] Respiratory 23 23 18 Rate Respiratory Rate [ Throughout] Blood Pressure 123/67 127/76 127/76 O2 Sat by Pulse 100 100 100 Oximetry 10/02/18 10/02/18 10/02/18 06:00 06:31 07:00 Temperature Pulse Rate 83 84 86 Pulse Rate [ From Monitor] Pulse Rate [ Throughout] Respiratory 19 21 15 Rate Respiratory Rate [ Throughout] Blood Pressure 122/68 122/68 117/57 O2 Sat by Pulse 100 100 100 Oximetry 10/02/18 10/02/18 10/02/18 07:31 07:39 07:40 Temperature Pulse Rate 88 Pulse Rate [ From Monitor] Pulse Rate [ 86 87 Throughout] Respiratory 18 Rate Respiratory 18 19 Rate [ Throughout] Blood Pressure 117/57 O2 Sat by Pulse 100 Oximetry 10/02/18 10/02/18 10/02/18 08:00 08:31 08:57 Temperature 98.7 F Pulse Rate 85 83 84 Pulse Rate [ From Monitor] Pulse Rate [ Throughout] Respiratory 10 L 14 Rate Respiratory Rate [ Throughout] Blood Pressure 124/70 124/70 124/70 O2 Sat by Pulse 100 100 Oximetry 10/02/18 10/02/18 09:00 09:31 Temperature Pulse Rate 82 84 Pulse Rate [ From Monitor] Pulse Rate [ Throughout] Respiratory 24 19 Rate Respiratory Rate [ Throughout] Blood Pressure 128/60 128/60 O2 Sat by Pulse 100 Oximetry - General Appearance General appearance: chronically ill, intubated EENT: ATNC, PERRL Neck: no JVD, no thyromegaly Respiratory: Present: Clear to Ascultation Cardiology: regular, S1S2 Gastrointestinal: normoactive bowel sounds Integumentary: rash (noted on right ear pinnae ) Neurologic: other (off sedation but only opens eye spontaneously, and still does not follow commands. ) Musculoskeletal: other (mild LE Edema ) - Lab 10/02/18 07:15 10/02/18 07:15 Most recent lab results Calcium 7.6 mg/dL (8.4-10.2) L 10/02/18 07:15 Phosphorus 3.10 mg/dL (2.5-4.5) D 09/27/18 04:11 Magnesium 1.80 mg/dL (1.7-2.3) 09/26/18 06:15 - Allied health notes Allied health notes reviewed: nursing Medications & Allergies - Medications Allergies/Adverse Reactions: Allergies No Known Allergies Allergy (Unverified 09/11/18 17:50) Active Medications: Generic Name Dose Route Start Last Admin Trade Name Freq PRN Reason Stop Dose Admin Acetaminophen 650 mg 09/11/18 19:30 09/23/18 08:41 Tylenol PO 650 mg Q4H PRN Administration Pain MILD(1-3)/Fever >100.5/RIVERA Acetaminophen 650 mg 09/21/18 07:39 Tylenol MI Q4H PRN Fever >101 Albuterol 2.5 mg 09/11/18 19:30 09/16/18 06:09 Proventil IH 2.5 mg Q4HRT PRN Administration Shortness Of Breath Albuterol 2.5 mg 09/20/18 20:00 10/02/18 07:39 Proventil IH 2.5 mg Q6HRT GIA Administration Amiodarone HCl 200 mg 09/27/18 15:00 10/02/18 09:01 Cordarone PO 200 mg BID GIA Administration Lipase/Protease/Amylase 1 each 09/30/18 12:01 Abril Gibbs 10,500 Unit FEEDTUBE PRN PRN For Clogged Feeding Tube Atovaquone 750 mg 09/21/18 10:00 10/02/18 09:01 Mepron PO 750 mg BID GIA Administration Azithromycin 1,200 mg 09/25/18 10:00 10/02/18 09:00 Zithromax PO 1,200 mg Walters GIA Administration Emtricitabine 200 mg 09/30/18 11:30 10/02/18 09:01 Emtriva PO 200 mg QDAY GIA Administration Famotidine 20 mg 09/24/18 10:00 10/02/18 09:01 Pepcid PO 20 mg BID GIA Administration Glycopyrrolate 2 mg 09/23/18 15:00 10/02/18 06:16 Robinul PO 2 mg Q8HR GIA Administration Hydrophilic Ointment 1 applic 09/21/18 01:46 09/22/18 03:46 Vaseline Lip Therapy TP 1 applic Q2HR PRN Administration Dry Lips Fluconazole 200 mls @ 100 mls/hr 09/13/18 14:00 10/02/18 09:02 Diflucan IV 100 mls/hr Q24HR GIA Administration Protocol Heparin Sodium/Sodium Chloride 25,000 unit in 500 mls @ 30 mls/hr 09/21/18 11:00 10/02/18 06:25 Heparin/ 0.45% Nacl-25,000 Unit/500 Ml IV 1,200 units/hr TITR GIA 24 mls/hr Administration Protocol 1,500 UNITS/HR Ganciclovir Sodium 500 mg/ 250 mls @ 100 mls/hr 09/23/18 13:00 10/02/18 00:30 Sodium Chloride IV 100 mls/hr Q12H GIA Administration Ceftriaxone Sodium 2 gm in 100 mls @ 200 mls/hr 09/23/18 13:00 10/02/18 09:02 Rocephin/Ns 2 Gm/100 Ml IV 200 mls/hr Q12HR GIA Administration Protocol Dextrose 1,000 mls @ 50 mls/hr 09/30/18 15:00 10/02/18 06:18 D5w IV 50 mls/hr DIRECT GIA Administration Levothyroxine Sodium 25 mcg 09/19/18 06:00 10/02/18 06:16 Synthroid PO 25 mcg DAILY@0600 GIA Administration Metoprolol Tartrate 5 mg 09/21/18 03:00 10/02/18 08:57 Lopressor IV 5 mg Q6H GIA Administration Metronidazole 500 mg 09/26/18 14:00 10/02/18 06:16 Flagyl PO 500 mg Q8HR GIA Administration Protocol Multi-Ingred Cream/Lotion/Oil/Oint 1 applic 09/21/18 01:46 Artificial Tears Ophth Oint OU Q4HR PRN Dry Eye(s) Ondansetron HCl 4 mg 09/11/18 19:30 Zofran IV Q8H PRN Nausea And Vomiting Scopolamine 1 each 09/18/18 18:00 09/30/18 18:43 Transderm-Scop TD 1 each Q3D GIA Administration Simple Syrup 15 ml 09/30/18 12:01 Simple Syrup FEEDTUBE PRN PRN Hypoglycemia Simple Syrup 30 ml 09/30/18 12:01 Simple Syrup FEEDTUBE PRN PRN Hypoglycemia Sodium Bicarbonate 325 mg 09/30/18 12:01 Sodium Bicarbonate FEEDTUBE PRN PRN For Clogged Feeding Tube Sodium Chloride 10 ml 09/11/18 22:00 10/01/18 21:41 Sodium Chloride Flush Syringe 10 Ml IV 10 ml BID GIA Administration Sodium Chloride 10 ml 09/11/18 19:30 Sodium Chloride Flush Syringe 10 Ml IV PRN PRN LINE FLUSH Tenofovir Disoproxil Fumarate 300 mg 09/30/18 11:30 10/02/18 09:00 Viread PO 300 mg QDAY GIA Administration
--- NOTE | 2018-10-02 12:43 | Progress Note ---
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) Elevated LFTs Neutropenia Thrombocytopenia (His mental status remains the rate limiting step to safe extubation for now) - will benefit from tracheostomy placement as he will be unable to protect his airway acutely - continue Robinul & scopolamine for secretion control - continue to hold all sedating medications - ETT day # 13; will continue daytime SBT's for now while following mental status - continue anti-infective's per ID recs (ART has been started appropriately) - continue low dose reglan re: reported increased residuals - continue supplemental oxygen to keep sats > 90% - continue bronchodilators with pulmonary Continue empiric and targeted anti- infective's per ID recs antibiotics per ID - continue set rate at 12/min - continue daily SBT's - daily SAT's - continue IV heparin for NSTEMI - continue Robinul 2 mg q8h for secretions - IV amiodarone stopped - cardiology evaluation ongoing - diarrhea improved - continue fluconazole for candidiasis - watch for drug-drug interactions - continue enteral nutrition as tolerated - when resumed target sedation for RASS 0 to -1 - PT/OT/ROM exercises as tolerated - mobility protocol for pressure ulcer prophylaxis - continue GI & VTE prophylaxis - continue other care per attending / other consultants ....... care plan discussed at length with next-of-kin at bedside ...... re-evaluate in am & prn The high probability of a clinically significant, sudden or life threatening deterioration of the [cardiac, respiratory and neurologic] system(s) required my full and direct attention, intervention and personal management. The aggregate critical care time was [34] minutes. This time is in addition to time spent performing reported procedures but includes the following: [x] Data Review and interpretation [x] Patient assessment and monitoring of vital signs [x] Documentation [x] Medication orders and management Subjective Date of service: 10/02/18 Principal diagnosis: Severe sepsis; Ac hypoxemic Resp failure; [place]. Pneumonia; Ac encephalopathy Interval history: Patient is seen today for: Severe sepsis (present on admission with fever, tachycardia, hypotension and elevated lactate); Acute hypoxemic Respiratory failure; Bilateral pneumonia; Acute encephalopathy (Toxic / Metabolic); Atrial Fibrillation with RVR Seen and examined at bedside; 24hour events reviewed; nursing and respiratory care staff consulted; no adverse overnight events reported to me; remains encephalopathic; remains on MVS; tolerating SBT's well; no emesis or overt aspiration and tolerating tube feeds well; no high grade fevers and no seizure activity Objective Vital Signs - 12hr 10/02/18 10/02/18 10/02/18 01:00 01:24 01:31 Temperature Pulse Rate 84 84 Pulse Rate [ From Monitor] Pulse Rate [ 79 Throughout] Respiratory 20 12 Rate Respiratory 16 Rate [ Throughout] Blood Pressure 131/75 131/77 O2 Sat by Pulse 100 100 Oximetry 10/02/18 10/02/18 10/02/18 01:35 02:00 02:31 Temperature Pulse Rate 83 80 Pulse Rate [ From Monitor] Pulse Rate [ 83 Throughout] Respiratory 18 17 Rate Respiratory 16 Rate [ Throughout] Blood Pressure 119/71 119/71 O2 Sat by Pulse 100 100 Oximetry 10/02/18 10/02/18 10/02/18 03:00 03:31 03:33 Temperature Pulse Rate 85 79 82 Pulse Rate [ From Monitor] Pulse Rate [ Throughout] Respiratory 20 16 Rate Respiratory Rate [ Throughout] Blood Pressure 129/77 129/77 129/77 O2 Sat by Pulse 100 100 100 Oximetry 10/02/18 10/02/18 10/02/18 04:00 04:31 05:00 Temperature 97.9 F Pulse Rate 82 82 85 Pulse Rate [ 82 From Monitor] Pulse Rate [ Throughout] Respiratory 18 23 23 Rate Respiratory Rate [ Throughout] Blood Pressure 123/67 123/67 127/76 O2 Sat by Pulse 100 100 100 Oximetry 10/02/18 10/02/18 10/02/18 05:31 06:00 06:31 Temperature Pulse Rate 83 83 84 Pulse Rate [ From Monitor] Pulse Rate [ Throughout] Respiratory 18 19 21 Rate Respiratory Rate [ Throughout] Blood Pressure 127/76 122/68 122/68 O2 Sat by Pulse 100 100 100 Oximetry 10/02/18 10/02/18 10/02/18 07:00 07:31 07:39 Temperature Pulse Rate 86 88 Pulse Rate [ From Monitor] Pulse Rate [ 86 Throughout] Respiratory 15 18 Rate Respiratory 18 Rate [ Throughout] Blood Pressure 117/57 117/57 O2 Sat by Pulse 100 100 Oximetry 10/02/18 10/02/18 10/02/18 07:40 08:00 08:31 Temperature 98.7 F Pulse Rate 85 83 Pulse Rate [ From Monitor] Pulse Rate [ 87 Throughout] Respiratory 10 L 14 Rate Respiratory 19 Rate [ Throughout] Blood Pressure 124/70 124/70 O2 Sat by Pulse 100 100 Oximetry 10/02/18 10/02/18 10/02/18 08:57 09:00 09:31 Temperature Pulse Rate 84 82 84 Pulse Rate [ From Monitor] Pulse Rate [ Throughout] Respiratory 24 19 Rate Respiratory Rate [ Throughout] Blood Pressure 124/70 128/60 128/60 O2 Sat by Pulse 100 Oximetry 10/02/18 12:00 Temperature Pulse Rate 83 Pulse Rate [ From Monitor] Pulse Rate [ Throughout] Respiratory 18 Rate Respiratory Rate [ Throughout] Blood Pressure 136/73 O2 Sat by Pulse 100 Oximetry Constitutional: lethargic, agitated, appears uncomfortable, other (orally intubated ETT at 23cm) Eyes: non-icteric ENT: oropharynx moist, other (ETT 25 cm NIKA) Neck: supple, no lymphadenopathy, other (no thyromegaly) Effort: mildly labored Ascultation: Bilateral: rhonchi (scant) Percussion: Bilateral: not dull Cardiovascular: regular rate and rhythm, other (S1,S2, no murmurs, gallps or rubs) Gastrointestinal: normoactive bowel sounds, soft, non-tender, non-distended Integumentary: rash Extremities: no cyanosis, pulses normal, no ischemia or petechiae, edema Neurologic: non-focal exam (grossly), pupils equal and round, motor strength normal and (weak ) Psychiatric: other (unable to assess) CBC and BMP: 10/03/18 06:12 10/03/18 06:12 ABG, PT/INR, D-dimer: ABG POC ABG pH 7.387 (7.35-7.45) 10/01/18 13:06 POC ABG pCO2 44.1 (35-45) 10/01/18 13:06 POC ABG pO2 83 (80-105) 10/01/18 13:06 POC ABG HCO3 26.5 10/01/18 13:06 POC ABG Total CO2 28 10/01/18 13:06 POC ABG O2 Sat 96 10/01/18 13:06 PT/INR, D-dimer PT 19.9 Sec. (12.2-14.9) H 09/21/18 15:00 INR 1.65 (0.87-1.13) H 09/21/18 15:00 Abnormal lab findings: Abnormal Labs 09/11/18 09/11/18 09/11/18 18:00 18:00 18:00 WBC 1.9 L* RBC Hgb Hct Plt Count 130 L Seg Neuts % (Manual) Lymphocytes % (Manual) Monocytes % (Manual) 16.0 H Eosinophils % (Manual) Basophils % (Manual) Nucleated RBC % Seg Neutrophils # Man 0.9 L Abs Lymphs (Manual) Lymphocytes # (Manual) 0.5 L PT INR APTT Heparin Anti-Xa Level POC ABG pH POC ABG pCO2 POC ABG pO2 Sodium 131 L Potassium Chloride Carbon Dioxide 17 L BUN 21 H Creatinine Glucose 126 H POC Glucose Lactic Acid 2.60 H* Calcium 8.1 L Phosphorus AST 123 H ALT 115 H Total Creatine Kinase Total Protein Albumin 3.0 L Vitamin B12 TSH Free T4 CSF VDRL Lymph Enumerat CD4/CD8 Absolute CD3 Count % CD4 Cells Absolute CD4 Count % CD8 Cells Absolute CD19 Count T.pallidum Ab (FTA-ABS) HIV-1 RNA PCR copies/ml HIV-1 RNA (PCR) log Miscellaneous Test 09/11/18 09/13/18 09/13/18 19:01 04:28 07:31 WBC 2.0 L RBC Hgb Hct Plt Count 116 L Seg Neuts % (Manual) Lymphocytes % (Manual) Monocytes % (Manual) 8.0 H Eosinophils % (Manual) Basophils % (Manual) Nucleated RBC % Seg Neutrophils # Man 1.0 L Abs Lymphs (Manual) Lymphocytes # (Manual) 0.5 L PT INR APTT Heparin Anti-Xa Level POC ABG pH POC ABG pCO2 POC ABG pO2 Sodium Potassium Chloride 110.4 H Carbon Dioxide 19 L BUN Creatinine Glucose POC Glucose Lactic Acid 3.70 H* Calcium 7.9 L Phosphorus AST ALT Total Creatine Kinase Total Protein Albumin Vitamin B12 TSH Free T4 CSF VDRL Lymph Enumerat CD4/CD8 Absolute CD3 Count % CD4 Cells Absolute CD4 Count % CD8 Cells Absolute CD19 Count T.pallidum Ab (FTA-ABS) HIV-1 RNA PCR copies/ml HIV-1 RNA (PCR) log Miscellaneous Test 09/13/18 09/13/18 09/13/18 07:31 12:29 12:29 WBC RBC Hgb Hct Plt Count Seg Neuts % (Manual) Lymphocytes % (Manual) Monocytes % (Manual) Eosinophils % (Manual) Basophils % (Manual) Nucleated RBC % Seg Neutrophils # Man Abs Lymphs (Manual) 309 L Lymphocytes # (Manual) PT INR APTT Heparin Anti-Xa Level POC ABG pH POC ABG pCO2 POC ABG pO2 Sodium Potassium Chloride Carbon Dioxide BUN Creatinine Glucose POC Glucose Lactic Acid Calcium Phosphorus AST 70 H ALT 68 H Total Creatine Kinase Total Protein Albumin 2.5 L Vitamin B12 TSH Free T4 CSF VDRL Lymph Enumerat CD4/CD8 0.01 L Absolute CD3 Count 220 L % CD4 Cells 1 L Absolute CD4 Count 4 L % CD8 Cells 70 H Absolute CD19 Count 54 L T.pallidum Ab (FTA-ABS) HIV-1 RNA PCR copies/ml 70339 H HIV-1 RNA (PCR) log 4.71 H Miscellaneous Test 09/13/18 09/14/18 09/14/18 12:29 07:17 16:34 WBC RBC Hgb Hct Plt Count Seg Neuts % (Manual) Lymphocytes % (Manual) Monocytes % (Manual) Eosinophils % (Manual) Basophils % (Manual) Nucleated RBC % Seg Neutrophils # Man Abs Lymphs (Manual) Lymphocytes # (Manual) PT INR APTT Heparin Anti-Xa Level POC ABG pH POC ABG pCO2 POC ABG pO2 Sodium Potassium 3.4 L Chloride Carbon Dioxide 18 L BUN Creatinine Glucose 104 H POC Glucose Lactic Acid Calcium 7.6 L Phosphorus AST 49 H ALT Total Creatine Kinase Total Protein Albumin 2.5 L Vitamin B12 TSH Free T4 CSF VDRL Lymph Enumerat CD4/CD8 Absolute CD3 Count % CD4 Cells Absolute CD4 Count % CD8 Cells Absolute CD19 Count T.pallidum Ab (FTA-ABS) Reactive H HIV-1 RNA PCR copies/ml HIV-1 RNA (PCR) log Miscellaneous Test Flexitest 1 H 09/15/18 09/15/18 09/15/18 05:05 05:05 Unknown WBC 1.6 L* RBC Hgb 10.4 L Hct 31.1 L D Plt Count 113 L Seg Neuts % (Manual) Lymphocytes % (Manual) Monocytes % (Manual) Eosinophils % (Manual) Basophils % (Manual) Nucleated RBC % Seg Neutrophils # Man Abs Lymphs (Manual) Lymphocytes # (Manual) PT INR APTT Heparin Anti-Xa Level POC ABG pH POC ABG pCO2 POC ABG pO2 Sodium Potassium Chloride 107.9 H Carbon Dioxide 18 L BUN 6 L Creatinine Glucose POC Glucose Lactic Acid Calcium 7.4 L Phosphorus AST ALT Total Creatine Kinase Total Protein Albumin Vitamin B12 TSH Free T4 CSF VDRL Reactive 1:8 H Lymph Enumerat CD4/CD8 Absolute CD3 Count % CD4 Cells Absolute CD4 Count % CD8 Cells Absolute CD19 Count T.pallidum Ab (FTA-ABS) HIV-1 RNA PCR copies/ml HIV-1 RNA (PCR) log Miscellaneous Test 09/16/18 09/16/18 09/16/18 06:55 11:41 11:41 WBC 2.8 L RBC Hgb 10.9 L Hct 33.5 L Plt Count 135 L Seg Neuts % (Manual) Lymphocytes % (Manual) Monocytes % (Manual) Eosinophils % (Manual) Basophils % (Manual) Nucleated RBC % Seg Neutrophils # Man Abs Lymphs (Manual) Lymphocytes # (Manual) PT INR APTT Heparin Anti-Xa Level POC ABG pH POC ABG pCO2 POC ABG pO2 Sodium Potassium Chloride Carbon Dioxide BUN Creatinine Glucose POC Glucose Lactic Acid Calcium Phosphorus AST ALT Total Creatine Kinase Total Protein Albumin Vitamin B12 TSH 4.210 H Free T4 0.72 L CSF VDRL Lymph Enumerat CD4/CD8 Absolute CD3 Count % CD4 Cells Absolute CD4 Count % CD8 Cells Absolute CD19 Count T.pallidum Ab (FTA-ABS) HIV-1 RNA PCR copies/ml HIV-1 RNA (PCR) log Miscellaneous Test 09/16/18 09/16/18 09/17/18 11:41 15:43 05:13 WBC 2.0 L RBC Hgb 10.9 L Hct 32.7 L Plt Count Seg Neuts % (Manual) Lymphocytes % (Manual) Monocytes % (Manual) Eosinophils % (Manual) Basophils % (Manual) Nucleated RBC % Seg Neutrophils # Man Abs Lymphs (Manual) Lymphocytes # (Manual) PT INR APTT Heparin Anti-Xa Level POC ABG pH POC ABG pCO2 29.3 L POC ABG pO2 70 L Sodium Potassium Chloride Carbon Dioxide BUN Creatinine Glucose POC Glucose Lactic Acid Calcium Phosphorus AST ALT Total Creatine Kinase Total Protein Albumin Vitamin B12 934.5 H TSH Free T4 CSF VDRL Lymph Enumerat CD4/CD8 Absolute CD3 Count % CD4 Cells Absolute CD4 Count % CD8 Cells Absolute CD19 Count T.pallidum Ab (FTA-ABS) HIV-1 RNA PCR copies/ml HIV-1 RNA (PCR) log Miscellaneous Test 09/17/18 09/17/18 09/18/18 05:13 21:57 12:46 WBC RBC Hgb Hct Plt Count Seg Neuts % (Manual) Lymphocytes % (Manual) Monocytes % (Manual) Eosinophils % (Manual) Basophils % (Manual) Nucleated RBC % Seg Neutrophils # Man Abs Lymphs (Manual) Lymphocytes # (Manual) PT INR APTT Heparin Anti-Xa Level POC ABG pH POC ABG pCO2 POC ABG pO2 Sodium Potassium Chloride 107.2 H Carbon Dioxide 21 L BUN 3 L Creatinine 0.7 L Glucose POC Glucose 108 H Lactic Acid Calcium 7.9 L Phosphorus AST ALT Total Creatine Kinase Total Protein 6.1 L Albumin 2.6 L Vitamin B12 TSH Free T4 0.75 L CSF VDRL Lymph Enumerat CD4/CD8 Absolute CD3 Count % CD4 Cells Absolute CD4 Count % CD8 Cells Absolute CD19 Count T.pallidum Ab (FTA-ABS) HIV-1 RNA PCR copies/ml HIV-1 RNA (PCR) log Miscellaneous Test 09/18/18 09/19/18 09/19/18 12:46 04:57 04:57 WBC 2.1 L RBC Hgb 11.4 L Hct 34.2 L Plt Count Seg Neuts % (Manual) Lymphocytes % (Manual) Monocytes % (Manual) Eosinophils % (Manual) Basophils % (Manual) Nucleated RBC % Seg Neutrophils # Man Abs Lymphs (Manual) Lymphocytes # (Manual) PT INR APTT Heparin Anti-Xa Level POC ABG pH POC ABG pCO2 POC ABG pO2 Sodium Potassium Chloride Carbon Dioxide 19 L BUN 6 L Creatinine Glucose POC Glucose Lactic Acid Calcium 7.9 L Phosphorus AST ALT Total Creatine Kinase Total Protein Albumin Vitamin B12 TSH 5.190 H Free T4 CSF VDRL Lymph Enumerat CD4/CD8 Absolute CD3 Count % CD4 Cells Absolute CD4 Count % CD8 Cells Absolute CD19 Count T.pallidum Ab (FTA-ABS) HIV-1 RNA PCR copies/ml HIV-1 RNA (PCR) log Miscellaneous Test 09/19/18 09/19/18 09/20/18 15:00 15:00 05:33 WBC RBC Hgb Hct Plt Count Seg Neuts % (Manual) Lymphocytes % (Manual) Monocytes % (Manual) Eosinophils % (Manual) Basophils % (Manual) Nucleated RBC % Seg Neutrophils # Man Abs Lymphs (Manual) Lymphocytes # (Manual) PT INR APTT Heparin Anti-Xa Level POC ABG pH POC ABG pCO2 POC ABG pO2 Sodium 136 L Potassium Chloride Carbon Dioxide 19 L BUN 7 L Creatinine Glucose POC Glucose Lactic Acid Calcium Phosphorus AST ALT Total Creatine Kinase Total Protein Albumin Vitamin B12 TSH Free T4 CSF VDRL Reactive 1:4 H Lymph Enumerat CD4/CD8 Absolute CD3 Count % CD4 Cells Absolute CD4 Count % CD8 Cells Absolute CD19 Count T.pallidum Ab (FTA-ABS) HIV-1 RNA PCR copies/ml HIV-1 RNA (PCR) log Miscellaneous Test Flexitest 1 H 09/20/18 09/21/18 09/21/18 06:52 01:06 03:49 WBC 2.5 L RBC Hgb Hct Plt Count Seg Neuts % (Manual) Lymphocytes % (Manual) Monocytes % (Manual) Eosinophils % (Manual) Basophils % (Manual) Nucleated RBC % Seg Neutrophils # Man Abs Lymphs (Manual) Lymphocytes # (Manual) PT INR APTT Heparin Anti-Xa Level POC ABG pH 7.159 L POC ABG pCO2 32.9 L 70.0 H POC ABG pO2 62 L 254 H Sodium Potassium Chloride Carbon Dioxide BUN Creatinine Glucose POC Glucose Lactic Acid Calcium Phosphorus AST ALT Total Creatine Kinase Total Protein Albumin Vitamin B12 TSH Free T4 CSF VDRL Lymph Enumerat CD4/CD8 Absolute CD3 Count % CD4 Cells Absolute CD4 Count % CD8 Cells Absolute CD19 Count T.pallidum Ab (FTA-ABS) HIV-1 RNA PCR copies/ml HIV-1 RNA (PCR) log Miscellaneous Test 09/21/18 09/21/18 09/21/18 04:15 04:15 04:25 WBC 3.1 L RBC Hgb 11.6 L Hct Plt Count Seg Neuts % (Manual) Lymphocytes % (Manual) Monocytes % (Manual) 12.0 H Eosinophils % (Manual) Basophils % (Manual) Nucleated RBC % Seg Neutrophils # Man 1.6 L Abs Lymphs (Manual) Lymphocytes # (Manual) 0.5 L PT INR APTT Heparin Anti-Xa Level POC ABG pH POC ABG pCO2 POC ABG pO2 Sodium Potassium 6.1 H* D Chloride Carbon Dioxide 19 L BUN Creatinine Glucose 108 H POC Glucose Lactic Acid Calcium Phosphorus AST ALT Total Creatine Kinase 685 H Total Protein Albumin Vitamin B12 TSH Free T4 CSF VDRL Lymph Enumerat CD4/CD8 Absolute CD3 Count % CD4 Cells Absolute CD4 Count % CD8 Cells Absolute CD19 Count T.pallidum Ab (FTA-ABS) HIV-1 RNA PCR copies/ml HIV-1 RNA (PCR) log Miscellaneous Test 09/21/18 09/21/18 09/21/18 09:59 10:07 11:00 WBC RBC Hgb 11.7 L Hct Plt Count Seg Neuts % (Manual) Lymphocytes % (Manual) Monocytes % (Manual) Eosinophils % (Manual) Basophils % (Manual) Nucleated RBC % Seg Neutrophils # Man Abs Lymphs (Manual) Lymphocytes # (Manual) PT INR APTT Heparin Anti-Xa Level POC ABG pH 7.301 L POC ABG pCO2 POC ABG pO2 109 H Sodium Potassium 6.5 H* Chloride Carbon Dioxide 18 L BUN Creatinine 2.1 H D Glucose POC Glucose Lactic Acid Calcium 8.1 L Phosphorus AST 94 H ALT Total Creatine Kinase Total Protein Albumin 2.8 L Vitamin B12 TSH Free T4 CSF VDRL Lymph Enumerat CD4/CD8 Absolute CD3 Count % CD4 Cells Absolute CD4 Count % CD8 Cells Absolute CD19 Count T.pallidum Ab (FTA-ABS) HIV-1 RNA PCR copies/ml HIV-1 RNA (PCR) log Miscellaneous Test 09/21/18 09/21/18 09/21/18 15:00 21:54 21:54 WBC RBC Hgb Hct Plt Count Seg Neuts % (Manual) Lymphocytes % (Manual) Monocytes % (Manual) Eosinophils % (Manual) Basophils % (Manual) Nucleated RBC % Seg Neutrophils # Man Abs Lymphs (Manual) Lymphocytes # (Manual) PT 19.9 H INR 1.65 H APTT 40.9 H Heparin Anti-Xa Level 0.98 H POC ABG pH POC ABG pCO2 POC ABG pO2 Sodium Potassium 5.2 H Chloride Carbon Dioxide BUN Creatinine Glucose POC Glucose Lactic Acid Calcium Phosphorus AST ALT Total Creatine Kinase Total Protein Albumin Vitamin B12 TSH Free T4 CSF VDRL Lymph Enumerat CD4/CD8 Absolute CD3 Count % CD4 Cells Absolute CD4 Count % CD8 Cells Absolute CD19 Count T.pallidum Ab (FTA-ABS) HIV-1 RNA PCR copies/ml HIV-1 RNA (PCR) log Miscellaneous Test 09/21/18 09/22/18 09/22/18 22:57 03:01 05:27 WBC RBC Hgb Hct Plt Count Seg Neuts % (Manual) Lymphocytes % (Manual) Monocytes % (Manual) Eosinophils % (Manual) Basophils % (Manual) Nucleated RBC % Seg Neutrophils # Man Abs Lymphs (Manual) Lymphocytes # (Manual) PT INR APTT Heparin Anti-Xa Level POC ABG pH POC ABG pCO2 32.7 L POC ABG pO2 Sodium Potassium Chloride Carbon Dioxide BUN Creatinine Glucose POC Glucose 124 H 128 H Lactic Acid Calcium Phosphorus AST ALT Total Creatine Kinase Total Protein Albumin Vitamin B12 TSH Free T4 CSF VDRL Lymph Enumerat CD4/CD8 Absolute CD3 Count % CD4 Cells Absolute CD4 Count % CD8 Cells Absolute CD19 Count T.pallidum Ab (FTA-ABS) HIV-1 RNA PCR copies/ml HIV-1 RNA (PCR) log Miscellaneous Test 09/22/18 09/22/18 09/22/18 07:00 07:00 11:32 WBC 1.8 L* RBC 3.59 L Hgb 10.1 L Hct 30.8 L Plt Count 126 L Seg Neuts % (Manual) Lymphocytes % (Manual) Monocytes % (Manual) Eosinophils % (Manual) Basophils % (Manual) Nucleated RBC % Seg Neutrophils # Man Abs Lymphs (Manual) Lymphocytes # (Manual) PT INR APTT Heparin Anti-Xa Level POC ABG pH POC ABG pCO2 POC ABG pO2 Sodium Potassium Chloride Carbon Dioxide BUN 27 H Creatinine 2.0 H Glucose 128 H POC Glucose 123 H Lactic Acid Calcium 6.9 L Phosphorus AST ALT Total Creatine Kinase Total Protein Albumin Vitamin B12 TSH Free T4 CSF VDRL Lymph Enumerat CD4/CD8 Absolute CD3 Count % CD4 Cells Absolute CD4 Count % CD8 Cells Absolute CD19 Count T.pallidum Ab (FTA-ABS) HIV-1 RNA PCR copies/ml HIV-1 RNA (PCR) log Miscellaneous Test 09/22/18 09/22/18 09/22/18 15:52 18:18 23:52 WBC RBC Hgb Hct Plt Count Seg Neuts % (Manual) Lymphocytes % (Manual) Monocytes % (Manual) Eosinophils % (Manual) Basophils % (Manual) Nucleated RBC % Seg Neutrophils # Man Abs Lymphs (Manual) Lymphocytes # (Manual) PT INR APTT Heparin Anti-Xa Level POC ABG pH POC ABG pCO2 48.7 H POC ABG pO2 Sodium Potassium Chloride Carbon Dioxide BUN Creatinine Glucose POC Glucose 110 H 124 H Lactic Acid Calcium Phosphorus AST ALT Total Creatine Kinase Total Protein Albumin Vitamin B12 TSH Free T4 CSF VDRL Lymph Enumerat CD4/CD8 Absolute CD3 Count % CD4 Cells Absolute CD4 Count % CD8 Cells Absolute CD19 Count T.pallidum Ab (FTA-ABS) HIV-1 RNA PCR copies/ml HIV-1 RNA (PCR) log Miscellaneous Test 09/23/18 09/23/18 09/23/18 04:10 05:55 05:55 WBC RBC Hgb 10.0 L Hct 30.3 L Plt Count 117 L Seg Neuts % (Manual) Lymphocytes % (Manual) Monocytes % (Manual) Eosinophils % (Manual) Basophils % (Manual) Nucleated RBC % Seg Neutrophils # Man Abs Lymphs (Manual) Lymphocytes # (Manual) PT INR APTT Heparin Anti-Xa Level 0.26 L POC ABG pH POC ABG pCO2 POC ABG pO2 144 H Sodium Potassium Chloride Carbon Dioxide BUN Creatinine Glucose POC Glucose Lactic Acid Calcium Phosphorus AST ALT Total Creatine Kinase Total Protein Albumin Vitamin B12 TSH Free T4 CSF VDRL Lymph Enumerat CD4/CD8 Absolute CD3 Count % CD4 Cells Absolute CD4 Count % CD8 Cells Absolute CD19 Count T.pallidum Ab (FTA-ABS) HIV-1 RNA PCR copies/ml HIV-1 RNA (PCR) log Miscellaneous Test 09/23/18 09/23/18 09/23/18 08:10 08:10 23:57 WBC 1.3 L* RBC 3.53 L Hgb 9.9 L Hct 30.0 L Plt Count 119 L Seg Neuts % (Manual) Lymphocytes % (Manual) Monocytes % (Manual) Eosinophils % (Manual) Basophils % (Manual) Nucleated RBC % Seg Neutrophils # Man Abs Lymphs (Manual) Lymphocytes # (Manual) PT INR APTT Heparin Anti-Xa Level POC ABG pH POC ABG pCO2 POC ABG pO2 Sodium Potassium Chloride Carbon Dioxide BUN Creatinine Glucose 122 H POC Glucose 115 H Lactic Acid Calcium 6.9 L Phosphorus AST ALT Total Creatine Kinase Total Protein Albumin Vitamin B12 TSH Free T4 CSF VDRL Lymph Enumerat CD4/CD8 Absolute CD3 Count % CD4 Cells Absolute CD4 Count % CD8 Cells Absolute CD19 Count T.pallidum Ab (FTA-ABS) HIV-1 RNA PCR copies/ml HIV-1 RNA (PCR) log Miscellaneous Test 09/24/18 09/24/18 09/24/18 12:04 14:42 18:10 WBC RBC Hgb Hct Plt Count Seg Neuts % (Manual) Lymphocytes % (Manual) Monocytes % (Manual) Eosinophils % (Manual) Basophils % (Manual) Nucleated RBC % Seg Neutrophils # Man Abs Lymphs (Manual) Lymphocytes # (Manual) PT INR APTT Heparin Anti-Xa Level 0.76 H POC ABG pH POC ABG pCO2 POC ABG pO2 Sodium Potassium Chloride Carbon Dioxide BUN Creatinine Glucose POC Glucose 111 H 138 H Lactic Acid Calcium Phosphorus AST ALT Total Creatine Kinase Total Protein Albumin Vitamin B12 TSH Free T4 CSF VDRL Lymph Enumerat CD4/CD8 Absolute CD3 Count % CD4 Cells Absolute CD4 Count % CD8 Cells Absolute CD19 Count T.pallidum Ab (FTA-ABS) HIV-1 RNA PCR copies/ml HIV-1 RNA (PCR) log Miscellaneous Test 09/25/18 09/25/18 09/25/18 03:45 04:24 14:20 WBC RBC Hgb 9.7 L Hct 29.4 L Plt Count 104 L Seg Neuts % (Manual) Lymphocytes % (Manual) Monocytes % (Manual) Eosinophils % (Manual) Basophils % (Manual) Nucleated RBC % Seg Neutrophils # Man Abs Lymphs (Manual) Lymphocytes # (Manual) PT INR APTT Heparin Anti-Xa Level POC ABG pH 7.460 H POC ABG pCO2 32.9 L POC ABG pO2 Sodium Potassium 3.5 L Chloride 110.3 H Carbon Dioxide BUN Creatinine Glucose 105 H POC Glucose Lactic Acid Calcium 6.7 L Phosphorus AST 633 H ALT 481 H Total Creatine Kinase Total Protein 4.8 L D Albumin 1.9 L Vitamin B12 TSH Free T4 CSF VDRL Lymph Enumerat CD4/CD8 Absolute CD3 Count % CD4 Cells Absolute CD4 Count % CD8 Cells Absolute CD19 Count T.pallidum Ab (FTA-ABS) HIV-1 RNA PCR copies/ml HIV-1 RNA (PCR) log Miscellaneous Test 09/26/18 09/26/18 09/26/18 06:15 06:15 10:43 WBC 1.2 L* RBC 3.32 L Hgb 9.2 L Hct 28.6 L Plt Count 97 L Seg Neuts % (Manual) 24.0 L Lymphocytes % (Manual) 43.0 H Monocytes % (Manual) 19.0 H Eosinophils % (Manual) 8.0 H Basophils % (Manual) 2.0 H Nucleated RBC % 3.0 H Seg Neutrophils # Man 0.0 L Abs Lymphs (Manual) Lymphocytes # (Manual) 0.0 L PT INR APTT Heparin Anti-Xa Level POC ABG pH 7.459 H POC ABG pCO2 POC ABG pO2 141 H Sodium Potassium Chloride 112.8 H Carbon Dioxide BUN Creatinine Glucose 110 H POC Glucose Lactic Acid Calcium 7.0 L Phosphorus 0.90 L* AST 362 H ALT 360 H Total Creatine Kinase Total Protein 4.9 L Albumin 1.5 L Vitamin B12 TSH Free T4 CSF VDRL Lymph Enumerat CD4/CD8 Absolute CD3 Count % CD4 Cells Absolute CD4 Count % CD8 Cells Absolute CD19 Count T.pallidum Ab (FTA-ABS) HIV-1 RNA PCR copies/ml HIV-1 RNA (PCR) log Miscellaneous Test 09/26/18 09/27/18 09/28/18 13:56 04:11 07:49 WBC RBC Hgb 9.1 L Hct 29.1 L Plt Count 96 L Seg Neuts % (Manual) Lymphocytes % (Manual) Monocytes % (Manual) Eosinophils % (Manual) Basophils % (Manual) Nucleated RBC % Seg Neutrophils # Man Abs Lymphs (Manual) Lymphocytes # (Manual) PT INR APTT Heparin Anti-Xa Level POC ABG pH POC ABG pCO2 POC ABG pO2 Sodium 146 H Potassium Chloride 111.6 H Carbon Dioxide BUN Creatinine Glucose POC Glucose 135 H Lactic Acid Calcium 7.4 L Phosphorus AST ALT Total Creatine Kinase Total Protein Albumin Vitamin B12 TSH Free T4 CSF VDRL Lymph Enumerat CD4/CD8 Absolute CD3 Count % CD4 Cells Absolute CD4 Count % CD8 Cells Absolute CD19 Count T.pallidum Ab (FTA-ABS) HIV-1 RNA PCR copies/ml HIV-1 RNA (PCR) log Miscellaneous Test 09/28/18 09/29/18 09/29/18 10:43 05:00 05:00 WBC 1.2 L* RBC 3.13 L Hgb 8.6 L Hct 27.3 L Plt Count 137 L Seg Neuts % (Manual) Lymphocytes % (Manual) Monocytes % (Manual) 16.0 H Eosinophils % (Manual) Basophils % (Manual) Nucleated RBC % 4.0 H Seg Neutrophils # Man 0.5 L Abs Lymphs (Manual) Lymphocytes # (Manual) 0.3 L PT INR APTT Heparin Anti-Xa Level POC ABG pH 7.300 L POC ABG pCO2 53.9 H POC ABG pO2 Sodium 147 H Potassium 3.4 L Chloride 114.5 H Carbon Dioxide BUN Creatinine Glucose POC Glucose Lactic Acid Calcium 7.7 L Phosphorus AST 69 H ALT 110 H Total Creatine Kinase Total Protein 5.2 L Albumin 1.9 L Vitamin B12 TSH Free T4 CSF VDRL Lymph Enumerat CD4/CD8 Absolute CD3 Count % CD4 Cells Absolute CD4 Count % CD8 Cells Absolute CD19 Count T.pallidum Ab (FTA-ABS) HIV-1 RNA PCR copies/ml HIV-1 RNA (PCR) log Miscellaneous Test 09/29/18 09/29/18 09/30/18 06:07 13:22 05:19 WBC 0.9 L* RBC 3.03 L Hgb 8.6 L Hct 25.9 L Plt Count Seg Neuts % (Manual) Lymphocytes % (Manual) Monocytes % (Manual) Eosinophils % (Manual) Basophils % (Manual) Nucleated RBC % Seg Neutrophils # Man Abs Lymphs (Manual) Lymphocytes # (Manual) PT INR APTT Heparin Anti-Xa Level POC ABG pH POC ABG pCO2 46.9 H POC ABG pO2 Sodium Potassium Chloride Carbon Dioxide BUN Creatinine Glucose POC Glucose 109 H Lactic Acid Calcium Phosphorus AST ALT Total Creatine Kinase Total Protein Albumin Vitamin B12 TSH Free T4 CSF VDRL Lymph Enumerat CD4/CD8 Absolute CD3 Count % CD4 Cells Absolute CD4 Count % CD8 Cells Absolute CD19 Count T.pallidum Ab (FTA-ABS) HIV-1 RNA PCR copies/ml HIV-1 RNA (PCR) log Miscellaneous Test 09/30/18 09/30/18 09/30/18 05:19 11:14 23:28 WBC RBC Hgb Hct Plt Count Seg Neuts % (Manual) Lymphocytes % (Manual) Monocytes % (Manual) Eosinophils % (Manual) Basophils % (Manual) Nucleated RBC % Seg Neutrophils # Man Abs Lymphs (Manual) Lymphocytes # (Manual) PT INR APTT Heparin Anti-Xa Level 0.72 H POC ABG pH POC ABG pCO2 46.6 H POC ABG pO2 Sodium 150 H Potassium Chloride 115.2 H Carbon Dioxide BUN Creatinine Glucose POC Glucose Lactic Acid Calcium 7.9 L Phosphorus AST ALT Total Creatine Kinase Total Protein Albumin Vitamin B12 TSH Free T4 CSF VDRL Lymph Enumerat CD4/CD8 Absolute CD3 Count % CD4 Cells Absolute CD4 Count % CD8 Cells Absolute CD19 Count T.pallidum Ab (FTA-ABS) HIV-1 RNA PCR copies/ml HIV-1 RNA (PCR) log Miscellaneous Test 10/01/18 10/01/18 10/02/18 04:55 04:55 07:15 WBC 0.9 L* 0.7 L* RBC 3.01 L 2.92 L Hgb 8.4 L 8.4 L Hct 26.0 L 24.9 L Plt Count Seg Neuts % (Manual) Lymphocytes % (Manual) Monocytes % (Manual) Eosinophils % (Manual) Basophils % (Manual) Nucleated RBC % Seg Neutrophils # Man Abs Lymphs (Manual) Lymphocytes # (Manual) PT INR APTT Heparin Anti-Xa Level POC ABG pH POC ABG pCO2 POC ABG pO2 Sodium 147 H Potassium 3.4 L Chloride 113.1 H Carbon Dioxide BUN 22 H Creatinine Glucose POC Glucose Lactic Acid Calcium 7.3 L Phosphorus AST ALT Total Creatine Kinase Total Protein Albumin Vitamin B12 TSH Free T4 CSF VDRL Lymph Enumerat CD4/CD8 Absolute CD3 Count % CD4 Cells Absolute CD4 Count % CD8 Cells Absolute CD19 Count T.pallidum Ab (FTA-ABS) HIV-1 RNA PCR copies/ml HIV-1 RNA (PCR) log Miscellaneous Test 10/02/18 07:15 WBC RBC Hgb Hct Plt Count Seg Neuts % (Manual) Lymphocytes % (Manual) Monocytes % (Manual) Eosinophils % (Manual) Basophils % (Manual) Nucleated RBC % Seg Neutrophils # Man Abs Lymphs (Manual) Lymphocytes # (Manual) PT INR APTT Heparin Anti-Xa Level POC ABG pH POC ABG pCO2 POC ABG pO2 Sodium Potassium 3.4 L Chloride 108.3 H Carbon Dioxide BUN Creatinine Glucose POC Glucose Lactic Acid Calcium 7.6 L Phosphorus AST ALT Total Creatine Kinase Total Protein Albumin Vitamin B12 TSH Free T4 CSF VDRL Lymph Enumerat CD4/CD8 Absolute CD3 Count % CD4 Cells Absolute CD4 Count % CD8 Cells Absolute CD19 Count T.pallidum Ab (FTA-ABS) HIV-1 RNA PCR copies/ml HIV-1 RNA (PCR) log Miscellaneous Test Allied health notes reviewed: nursing
[2018-10-03] MEDS: CYTOVENE 500 MG in NACL 0.9% 250ML 250 ML IV SCH ×2 (00:43→10:14)
[2018-10-03] MEDS: PROVENTIL IH SCH ×4 (01:31→20:20)
[2018-10-03] MEDS: D5W 1,000 ML IV SCH ×2 (02:08→21:47)
[2018-10-03] MEDS: HEPARIN/ 0.45% NACL-25,000 UNIT/500 ML 25,000 UNIT/500 ML BAG IV SCH (03:14)
[2018-10-03] MEDS: SYNTHROID PO SCH (06:00)
[2018-10-03] MEDS: FLAGYL PO SCH ×2 (06:00→15:44)
[2018-10-03] MEDS: ROBINUL PO SCH ×3 (06:00→21:52)
[2018-10-03 06:27] LABS: Hematocrit 25.9 % (35.5-45.6); Hemoglobin 8.5 gm/dl (11.8-15.2); Mean Corpuscular HGB Conc 33 % (32-34); Mean Corpuscular Volume 87 fl (84-94); Platelet Count 161 K/mm3 (140-440); Red Blood Count 2.96 M/mm3 (3.65-5.03); Red Cell Distribution Width 15.4 % (13.2-15.2)
[2018-10-03 06:50] LABS: BUN/Creatinine Ratio 19; Blood Urea Nitrogen 17 mg/dL (9-20); Calcium 7.4 mg/dL (8.4-10.2); Hemolysis Index 6
--- NOTE | 2018-10-03 07:43 | Progress Note ---
Assessment and Plan - Patient Problems (1) Acute kidney failure with tubular necrosis Current Visit: Yes Status: Acute Plan to address problem: Acute tubular necrosis secondary to sepsis has improved. Concerned about worsening on ganciclovir. Kidney function stable so far. Monitor kidney function and electrolytes closely. We'll sign off. Please reconsult when necessary (2) Encephalopathy Current Visit: Yes Status: Acute Plan to address problem: Possibly related to neurosyphilis and/or disseminated CMV. Continue treatment for both per the infectious disease. (3) Acute respiratory failure with hypoxia Current Visit: Yes Status: Acute Plan to address problem: Continue ventilatory support per Pulmonary (4) AIDS Current Visit: Yes Status: Suspected Plan to address problem: Being managed by infectious disease (5) Pancytopenia Current Visit: Yes Status: Acute Plan to address problem: HIV-related and/or disseminated CMV (6) Sepsis Current Visit: Yes Status: Acute Plan to address problem: Continue AB per ID (7) Hypokalemia Current Visit: Yes Status: Acute Plan to address problem: Supplement potassium and follow-up potassium and magnesium levels periodically (8) Transaminasemia Current Visit: Yes Status: Acute Plan to address problem: 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 Follow-up liver function test Subjective Date of service: 10/03/18 Principal diagnosis: Severe sepsis; Ac hypoxemic Resp failure; [place]. Pneumonia; Ac encephalopathy Interval history: Patient seen lying in bed. Intubated and on ventilator. Opens eyes to stimulus but not following commands this morning Objective - Exam Narrative Exam: Young -[place] male lying in bed intubated and on ventilator HEENT: NCAT, ETT intact Neck: Supple, no venous distention CVS: S1S2 RRR with no murmur, rub or gallop Chest: Coarse breath sounds with faint rhonchi Abdomen: Protuberant, soft, nontender, no organomegaly, bowel sounds are present Extremities: mild edema thighs Genitourinary deferred Neuro: Intubated on ventilator, opens eyes to speech - Vital Signs Vital signs: Vital Signs - 12hr 10/02/18 10/02/18 10/02/18 19:55 20:00 20:31 Temperature 98.8 F Pulse Rate 96 H 99 H Pulse Rate [ From Monitor] Pulse Rate [ 94 H Throughout] Respiratory 27 H 29 H Rate Respiratory 24 Rate [ Throughout] Blood Pressure 162/82 148/80 O2 Sat by Pulse 100 100 Oximetry 10/02/18 10/02/18 10/02/18 20:54 21:01 21:30 Temperature Pulse Rate 92 H 83 85 Pulse Rate [ From Monitor] Pulse Rate [ Throughout] Respiratory 17 19 Rate Respiratory Rate [ Throughout] Blood Pressure 162/82 137/71 132/71 O2 Sat by Pulse 100 100 Oximetry 10/02/18 10/02/18 10/02/18 22:00 22:30 23:00 Temperature Pulse Rate 92 H 93 H 93 H Pulse Rate [ From Monitor] Pulse Rate [ Throughout] Respiratory 26 H 28 H 22 Rate Respiratory Rate [ Throughout] Blood Pressure 141/78 137/81 136/82 O2 Sat by Pulse 100 100 100 Oximetry 10/02/18 10/02/18 10/03/18 23:30 23:55 00:00 Temperature 98.4 F Pulse Rate 95 H 98 H 94 H Pulse Rate [ 100 H From Monitor] Pulse Rate [ Throughout] Respiratory 33 H 20 Rate Respiratory Rate [ Throughout] Blood Pressure 145/87 139/78 139/78 O2 Sat by Pulse 100 100 100 Oximetry 10/03/18 10/03/18 10/03/18 00:30 01:00 01:30 Temperature Pulse Rate 92 H 97 H 97 H Pulse Rate [ From Monitor] Pulse Rate [ Throughout] Respiratory 18 25 H 29 H Rate Respiratory Rate [ Throughout] Blood Pressure 134/71 138/78 130/79 O2 Sat by Pulse 100 100 100 Oximetry 10/03/18 10/03/18 10/03/18 01:32 01:48 02:00 Temperature Pulse Rate 95 H Pulse Rate [ From Monitor] Pulse Rate [ 97 H 97 H Throughout] Respiratory 13 Rate Respiratory 26 H 27 H Rate [ Throughout] Blood Pressure 130/70 O2 Sat by Pulse 100 Oximetry 10/03/18 10/03/18 10/03/18 02:30 03:00 03:30 Temperature Pulse Rate 99 H 99 H 101 H Pulse Rate [ From Monitor] Pulse Rate [ Throughout] Respiratory 22 28 H 29 H Rate Respiratory Rate [ Throughout] Blood Pressure 133/74 126/72 129/79 O2 Sat by Pulse 100 100 100 Oximetry 10/03/18 10/03/18 10/03/18 04:00 04:30 05:00 Temperature 97.5 F L Pulse Rate 97 H 100 H 96 H Pulse Rate [ 86 From Monitor] Pulse Rate [ Throughout] Respiratory 25 H 26 H 53 H Rate Respiratory Rate [ Throughout] Blood Pressure 139/76 137/80 124/82 O2 Sat by Pulse 100 100 100 Oximetry 10/03/18 10/03/18 10/03/18 05:30 06:00 06:30 Temperature Pulse Rate 97 H 91 H 92 H Pulse Rate [ From Monitor] Pulse Rate [ Throughout] Respiratory 23 25 H 21 Rate Respiratory Rate [ Throughout] Blood Pressure 128/77 119/64 119/67 O2 Sat by Pulse 100 100 100 Oximetry 10/03/18 07:00 Temperature Pulse Rate 91 H Pulse Rate [ From Monitor] Pulse Rate [ Throughout] Respiratory 26 H Rate Respiratory Rate [ Throughout] Blood Pressure 119/75 O2 Sat by Pulse 100 Oximetry - Lab 10/03/18 06:12 10/03/18 06:12 Most recent lab results Calcium 7.4 mg/dL (8.4-10.2) L 10/03/18 06:12 Phosphorus 3.10 mg/dL (2.5-4.5) D 09/27/18 04:11 Magnesium 1.80 mg/dL (1.7-2.3) 09/26/18 06:15 Medications & Allergies - Medications Allergies/Adverse Reactions: Allergies No Known Allergies Allergy (Unverified 09/11/18 17:50) Home Medications: Home Medications Medication Instructions Recorded Confirmed Last Taken Type No Known Home Medications [No 10/02/18 10/02/18 Unknown History Reported Home Medications] Active Medications: Generic Name Dose Route Start Last Admin Trade Name Freq PRN Reason Stop Dose Admin Acetaminophen 650 mg 09/11/18 19:30 09/23/18 08:41 Tylenol PO 650 mg Q4H PRN Administration Pain MILD(1-3)/Fever >100.5/RIVERA Acetaminophen 650 mg 09/21/18 07:39 Tylenol [place] Q4H PRN Fever >101 Albuterol 2.5 mg 09/11/18 19:30 09/16/18 06:09 Proventil IH 2.5 mg Q4HRT PRN Administration Shortness Of Breath Albuterol 2.5 mg 09/20/18 20:00 10/03/18 01:31 Proventil IH 2.5 mg Q6HRT GIA Administration Amiodarone HCl 200 mg 09/27/18 15:00 10/02/18 22:49 Cordarone PO 200 mg BID GIA Administration Lipase/Protease/Amylase 1 each 09/30/18 12:01 Abril Gibbs 10,500 Unit FEEDTUBE PRN PRN For Clogged Feeding Tube Atovaquone 750 mg 09/21/18 10:00 10/02/18 22:48 Mepron PO 750 mg BID GIA Administration Azithromycin 1,200 mg 09/25/18 10:00 10/02/18 09:00 Zithromax PO 1,200 mg Walters GIA Administration Emtricitabine 200 mg 09/30/18 11:30 10/02/18 09:01 Emtriva PO 200 mg QDAY GIA Administration Famotidine 20 mg 09/24/18 10:00 10/02/18 22:49 Pepcid PO 20 mg BID GIA Administration Glycopyrrolate 2 mg 09/23/18 15:00 10/03/18 06:00 Robinul PO 2 mg Q8HR GIA Administration Hydrophilic Ointment 1 applic 09/21/18 01:46 09/22/18 03:46 Vaseline Lip Therapy TP 1 applic Q2HR PRN Administration Dry Lips Fluconazole 200 mls @ 100 mls/hr 09/13/18 14:00 10/02/18 09:02 Diflucan IV 100 mls/hr Q24HR GIA Administration Protocol Heparin Sodium/Sodium Chloride 25,000 unit in 500 mls @ 30 mls/hr 09/21/18 11:00 10/03/18 03:14 Heparin/ 0.45% Nacl-25,000 Unit/500 Ml IV 1,200 units/hr TITR GIA 24 mls/hr Administration Protocol 1,500 UNITS/HR Ganciclovir Sodium 500 mg/ 250 mls @ 100 mls/hr 09/23/18 13:00 10/03/18 00:43 Sodium Chloride IV 100 mls/hr Q12H GIA Administration Ceftriaxone Sodium 2 gm in 100 mls @ 200 mls/hr 09/23/18 13:00 10/02/18 22:49 Rocephin/Ns 2 Gm/100 Ml IV 200 mls/hr Q12HR GIA Administration Protocol Dextrose 1,000 mls @ 50 mls/hr 09/30/18 15:00 10/03/18 02:08 D5w IV 50 mls/hr DIRECT GIA Administration Levothyroxine Sodium 25 mcg 09/19/18 06:00 10/03/18 06:00 Synthroid PO 25 mcg DAILY@0600 GIA Administration Metoprolol Tartrate 5 mg 09/21/18 03:00 10/02/18 20:54 Lopressor IV 5 mg Q6H GIA Administration Metronidazole 500 mg 09/26/18 14:00 10/03/18 06:00 Flagyl PO 500 mg Q8HR GIA Administration Protocol Multi-Ingred Cream/Lotion/Oil/Oint 1 applic 09/21/18 01:46 Artificial Tears Ophth Oint OU Q4HR PRN Dry Eye(s) Ondansetron HCl 4 mg 09/11/18 19:30 Zofran IV Q8H PRN Nausea And Vomiting Scopolamine 1 each 09/18/18 18:00 09/30/18 18:43 Transderm-Scop TD 1 each Q3D GIA Administration Simple Syrup 15 ml 09/30/18 12:01 Simple Syrup FEEDTUBE PRN PRN Hypoglycemia Simple Syrup 30 ml 09/30/18 12:01 Simple Syrup FEEDTUBE PRN PRN Hypoglycemia Sodium Bicarbonate 325 mg 09/30/18 12:01 Sodium Bicarbonate FEEDTUBE PRN PRN For Clogged Feeding Tube Sodium Chloride 10 ml 09/11/18 22:00 10/02/18 22:55 Sodium Chloride Flush Syringe 10 Ml IV 10 ml BID GIA Administration Sodium Chloride 10 ml 09/11/18 19:30 Sodium Chloride Flush Syringe 10 Ml IV PRN PRN LINE FLUSH Tenofovir Disoproxil Fumarate 300 mg 09/30/18 11:30 10/02/18 09:00 Viread PO 300 mg QDAY GIA Administration
--- NOTE | 2018-10-03 08:40 | Progress Note ---
Assessment and Plan Assessment and plan: Severe Sepsis. Etiology secondary to bacterial pneumonia +/- gastroenteritis with newly diagnosed with HIV. Continue IV antibiotics per ID. Acute hypoxemic respiratory failure. Etiology secondary to sepsis/multifocal pneumonia with probable concomitant aspiration. Intubated, on vent., Unable to wean off vent Pulm following Bilateral pneumonia. Etiology likely secondary to PJP Pneumonia +/- aspiration. Chest x-ray, CT scan reveals multifocal pneumonia. Tracheal aspirate with Nona albicans. Toxic metabolic encephalopathy. 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 Of note, MRI did not show ventriculitis. Blood CMV DNA PCR = 1,058,978. CSF YAYO virus DNA PCR neg. Gastroenteritis. A. fib with RVR. Converted to NSR. cont Amiodarone 200 bid Cont Heparin drip. 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 Diarrhea. Resolved, etiology likely secondary to Giardia. Giardia antigen positive in stool. Oral candidiasis. Continue fluconazole. HIV/AIDS. New Diagnosis. Started on HAART on 09/30 Neutropenia/thrombocytopenia. Likely from HIV myelosuppression, sepsis Fever. Hypernatremia, resolved after started D5W Will dc D5w Recheck BMP in am Prognosis is guarded. For Trach and PEG. Surg consulted The high probability of a clinically significant, sudden or life threatening deterioration of the [4] system(s) required my full and direct attention, intervention and personal management. The aggregate critical care time was [32] minutes. This time is in addition to time spent performing reported procedures but includes the following: [x] Data Review and interpretation [x] Patient assessment and monitoring of vital signs [x] Documentation [x] Medication orders and management History Interval history: Patient transferred to ICU,now intubated, on vent was having fever. No fever past 48 hours. still depressed conscious level Hospitalist Physical - Physical exam Narrative exam: GEN: Intubated, on ventilator HEENT: Normocephalic, atraumatic, Neck: supple, No JVD Lungs: Bilateral coarse breath sounds, Heart:S1 and S2 regular, no murmurs, rubs or gallop, Abd:soft, non tender, non distended, normal bowel sounds Ext: No edema, no clubbing or cyanosis Neuro: Intubated, obtunded, not on sedation, follows commands inconsistently - Constitutional Vitals: Temp Pulse Resp BP Pulse Ox 97.5 F L 97 H 26 H 119/71 100 10/03/18 04:00 10/03/18 08:16 10/03/18 08:16 10/03/18 07:57 10/03/18 07:57 General appearance: Present: other (orally intubated) Results - Labs CBC & Chem 7: 10/03/18 06:12 10/03/18 06:12 Labs: Laboratory Last Values WBC 0.8 K/mm3 (4.5-11.0) L* 10/03/18 06:12 RBC 2.96 M/mm3 (3.65-5.03) L 10/03/18 06:12 Hgb 8.5 gm/dl (11.8-15.2) L 10/03/18 06:12 Hct 25.9 % (35.5-45.6) L 10/03/18 06:12 MCV 87 fl (84-94) 10/03/18 06:12 MCH 29 pg (28-32) 10/03/18 06:12 MCHC 33 % (32-34) 10/03/18 06:12 RDW 15.4 % (13.2-15.2) H 10/03/18 06:12 Plt Count 161 K/mm3 (140-440) 10/03/18 06:12 [place] % (Auto) [facility] 09/29/18 05:00 Baso % (Auto) [facility] 09/29/18 05:00 Add Manual Diff Complete 09/29/18 05:00 Total Counted 25 09/29/18 05:00 Seg Neutrophils % [facility] 09/29/18 05:00 Seg Neuts % (Manual) 40.0 % (40.0-70.0) 09/29/18 05:00 Band Neutrophils % 4.0 % 09/29/18 05:00 Lymphocytes % (Manual) 28.0 % (13.4-35.0) 09/29/18 05:00 Reactive Lymphs % (Man) 0 % 09/29/18 05:00 Monocytes % (Manual) 16.0 % (0.0-7.3) H 09/29/18 05:00 Eosinophils % (Manual) 0 % (0.0-4.3) 09/29/18 05:00 Basophils % (Manual) 0 % (0.0-1.8) 09/29/18 05:00 Metamyelocytes % 8.0 % 09/29/18 05:00 Myelocytes % 0 % 09/29/18 05:00 Promyelocytes % 4.0 % 09/29/18 05:00 Blast Cells % 0 % 09/29/18 05:00 Nucleated RBC % 4.0 % (0.0-0.9) H 09/29/18 05:00 Seg Neutrophils # Man 0.5 K/mm3 (1.8-7.7) L 09/29/18 05:00 Band Neutrophils # 0.0 K/mm3 09/29/18 05:00 Abs Lymphs (Manual) 309 cells/uL (850-3900) L 09/13/18 12:29 Lymphocytes # (Manual) 0.3 K/mm3 (1.2-5.4) L 09/29/18 05:00 Abs React Lymphs (Man) 0.0 K/mm3 09/29/18 05:00 Monocytes # (Manual) 0.2 K/mm3 (0.0-0.8) 09/29/18 05:00 Eosinophils # (Manual) 0.0 K/mm3 (0.0-0.4) 09/29/18 05:00 Basophils # (Manual) 0.0 K/mm3 (0.0-0.1) 09/29/18 05:00 Metamyelocytes # 0.1 K/mm3 09/29/18 05:00 Myelocytes # 0.0 K/mm3 09/29/18 05:00 Promyelocytes # 0.0 K/mm3 09/29/18 05:00 Blast Cells # 0.0 K/mm3 09/29/18 05:00 WBC Morphology Not Reportable 09/29/18 05:00 Hypersegmented Neuts Not Reportable 09/29/18 05:00 Hyposegmented Neuts Not Reportable 09/29/18 05:00 Hypogranular Neuts Not Reportable 09/29/18 05:00 Smudge Cells Not Reportable 09/29/18 05:00 Toxic Granulation Not Reportable 09/29/18 05:00 Toxic Vacuolation Not Reportable 09/29/18 05:00 Dohle Bodies Not Reportable 09/29/18 05:00 Pelger-Huet Anomaly Not Reportable 09/29/18 05:00 Giovanna Rods Not Reportable 09/29/18 05:00 Platelet Estimate Appears normal 09/29/18 05:00 Clumped Platelets Not Reportable 09/29/18 05:00 Plt Clumps, EDTA Not Reportable 09/29/18 05:00 Large Platelets Few 09/29/18 05:00 Giant Platelets Not Reportable 09/29/18 05:00 Platelet Satelliting Not Reportable 09/29/18 05:00 Plt Morphology Comment Not Reportable 09/29/18 05:00 RBC Morphology Not Reportable 09/29/18 05:00 Dimorphic RBCs Not Reportable 09/29/18 05:00 Polychromasia Not Reportable 09/29/18 05:00 Hypochromasia 1+ 09/29/18 05:00 Poikilocytosis Not Reportable 09/29/18 05:00 Anisocytosis 1+ 09/29/18 05:00 Microcytosis Not Reportable 09/29/18 05:00 Macrocytosis Rare 09/29/18 05:00 Spherocytes Not Reportable 09/29/18 05:00 Pappenheimer Bodies Not Reportable 09/29/18 05:00 Sickle Cells Not Reportable 09/29/18 05:00 Target Cells Few 09/29/18 05:00 Tear Drop Cells Not Reportable 09/29/18 05:00 Ovalocytes 2+ 09/29/18 05:00 Stomatocytes 1+ 09/29/18 05:00 Helmet Cells Not Reportable 09/29/18 05:00 [place] Bodies Not Reportable 09/29/18 05:00 [place] Rings Not Reportable 09/29/18 05:00 [place] Cells Not Reportable 09/29/18 05:00 Bite Cells Not Reportable 09/29/18 05:00 Crenated Cell Not Reportable 09/29/18 05:00 Elliptocytes Few 09/29/18 05:00 Acanthocytes (Spur) Not Reportable 09/29/18 05:00 Rouleaux Not Reportable 09/29/18 05:00 Hemoglobin C Crystals Not Reportable 09/29/18 05:00 Schistocytes Not Reportable 09/29/18 05:00 Malaria parasites Not Reportable 09/29/18 05:00 Kieran Bodies Not Reportable 09/29/18 05:00 Hem Pathologist Commnt No 09/29/18 05:00 PT 19.9 Sec. (12.2-14.9) H 09/21/18 15:00 INR 1.65 (0.87-1.13) H 09/21/18 15:00 APTT 40.9 Sec. (24.2-36.6) H 09/21/18 15:00 Heparin Anti-Xa Level 0.60 U.I./ml (0.3-0.7) 10/03/18 06:12 POC ABG pH 7.387 (7.35-7.45) 10/01/18 13:06 POC ABG pCO2 44.1 (35-45) 10/01/18 13:06 POC ABG pO2 83 (80-105) 10/01/18 13:06 POC ABG HCO3 26.5 10/01/18 13:06 POC ABG Total CO2 28 10/01/18 13:06 POC ABG O2 Sat 96 10/01/18 13:06 POC ABG Base Excess 2 10/01/18 13:06 FiO2 25 % 10/01/18 13:06 Sodium 141 mmol/L (137-145) 10/03/18 06:12 Potassium 3.4 mmol/L (3.6-5.0) L 10/03/18 06:12 Chloride 106.6 mmol/L (98-107) 10/03/18 06:12 Carbon Dioxide 26 mmol/L (22-30) 10/03/18 06:12 Anion Gap 12 mmol/L 10/03/18 06:12 BUN 17 mg/dL (9-20) 10/03/18 06:12 Creatinine 0.9 mg/dL (0.8-1.5) 10/03/18 06:12 Estimated GFR > 60 ml/min 10/03/18 06:12 BUN/Creatinine Ratio 19 % 10/03/18 06:12 Glucose 98 mg/dL (75-100) 10/03/18 06:12 POC Glucose 85 (70-105) 10/03/18 06:22 Lactic Acid 0.90 mmol/L (0.7-2.0) 09/11/18 20:17 Calcium 7.4 mg/dL (8.4-10.2) L 10/03/18 06:12 Phosphorus 3.10 mg/dL (2.5-4.5) D 09/27/18 04:11 Magnesium 1.80 mg/dL (1.7-2.3) 09/26/18 06:15 Total Bilirubin < 0.20 mg/dL (0.1-1.2) 09/29/18 05:00 Direct Bilirubin < 0.2 mg/dL (0-0.2) 09/13/18 07:31 AST 69 units/L (5-40) H 09/29/18 05:00 ALT 110 units/L (7-56) H 09/29/18 05:00 Alkaline Phosphatase 60 units/L (35-129) 09/29/18 05:00 Ammonia 47.0 umol/L (25-60) 09/16/18 11:41 Total Creatine Kinase 685 units/L (55-170) H 09/21/18 04:25 CK-MB (CK-2) 3.5 ng/mL (0.0-4.0) 09/21/18 04:25 CK-MB (CK-2) Rel Index 0.5 (0-4) 09/21/18 04:25 NT-Pro-B Natriuret Pep 145.9 pg/mL (0-450) 09/18/18 16:07 Total Protein 5.2 g/dL (6.3-8.2) L 09/29/18 05:00 Albumin 1.9 g/dL (3.9-5) L 09/29/18 05:00 Albumin/Globulin Ratio 0.6 % 09/29/18 05:00 Vitamin B12 934.5 pg/mL (211-911) H 09/16/18 11:41 TSH 5.190 mlU/mL (0.270-4.200) H 09/18/18 12:46 Free T4 0.75 ng/dL (0.76-1.46) L 09/18/18 12:46 Urine Color [place] (Yellow) 09/11/18 Unknown Urine Turbidity Clear (Clear) 09/11/18 Unknown Urine pH 5.0 (5.0-7.0) 09/11/18 Unknown Ur Specific [place] 1.016 (1.003-1.030) 09/11/18 Unknown Urine Protein <15 mg/dl mg/dL (Negative) 09/11/18 Unknown Urine Glucose (UA) Neg mg/dL (Negative) 09/11/18 Unknown Urine Ketones Neg mg/dL (Negative) 09/11/18 Unknown Urine Blood Sm (Negative) 09/11/18 Unknown Urine Nitrite Neg (Negative) 09/11/18 Unknown Urine Bilirubin Neg (Negative) 09/11/18 Unknown Urine Urobilinogen < 2.0 mg/dL (<2.0) 09/11/18 Unknown Ur Leukocyte Esterase Neg (Negative) 09/11/18 Unknown Urine WBC (Auto) 1.0 /HPF (0.0-6.0) 09/11/18 Unknown Urine RBC (Auto) 3.0 /HPF (0.0-6.0) 09/11/18 Unknown Urine Mucus Few /HPF 09/11/18 Unknown CSF Appearance Clear 09/19/18 15:00 CSF Color Colorless 09/19/18 15:00 CSF WBC 4 /mm3 (1-10) 09/19/18 15:00 CSF RBC 583 /mm3 (0-0) 09/19/18 15:00 CSF Seg Neutrophils 21.4 % (0-6) 09/19/18 15:00 CSF Lymphocytes % 71.4 % (40-80) 09/19/18 15:00 CSF Reactive Lymphs 0 % 09/19/18 15:00 CSF Monocytes % 7.1 % (15-45) 09/19/18 15:00 CSF Eosinophils % 0 % 09/19/18 15:00 CSF Basophils 0 % 09/19/18 15:00 CSF Pathologist Review C 09/19/18 15:00 CSF Glucose 32 mg/dL 09/19/18 15:00 CSF Total Protein 123 mg/dL 09/19/18 15:00 CSF VDRL Reactive 1:4 (Nonreactive) H 09/19/18 15:00 Vancomycin Trough 14.3 ug/mL (5.0-20.0) 09/25/18 14:45 Urine Opiates Screen Presumptive negative 09/17/18 15:52 Urine Methadone Screen Presumptive negative 09/17/18 15:52 Ur Barbiturates Screen Presumptive negative 09/17/18 15:52 Ur Phencyclidine Scrn Presumptive negative 09/17/18 15:52 Ur Amphetamines Screen Presumptive negative 09/17/18 15:52 U Benzodiazepines Scrn Presumptive negative 09/17/18 15:52 Urine Cocaine Screen Presumptive negative 09/17/18 15:52 U Marijuana (THC) Screen Presumptive negative 09/17/18 15:52 Drugs of Abuse Note Disclamer 09/17/18 15:52 Lymph Enumerat CD4/CD8 0.01 (0.86-5.00) L 09/13/18 12:29 % CD3 Cells 71 % (57-85) 09/13/18 12:29 Absolute CD3 Count 220 cells/uL (840-3060) L 09/13/18 12:29 % CD4 Cells 1 % (30-61) L 09/13/18 12:29 Absolute CD4 Count 4 cells/uL (490-1740) L 09/13/18 12:29 % CD8 Cells 70 % (12-42) H 09/13/18 12:29 Absolute CD8 Count 216 cells/uL (180-1170) 09/13/18 12:29 % CD19 Cells 17 % (6-29) 09/13/18 12:29 Absolute CD19 Count 54 cells/uL (110-660) L 09/13/18 12:29 RPR Titer 1:16 09/13/18 12:29 RPR Reactive (Nonreactive) 09/13/18 12:29 T.pallidum Ab (FTA-ABS) Reactive (Nonreactive) H 09/14/18 16:34 C. difficile Toxin A&B Negative (Negative) 09/12/18 05:30 CMV DNA PCR log cop examiner/mL See scanned result 09/26/18 06:15 Hepatitis A IgM Ab Non-reactive (NonReactive) 09/13/18 12:29 Hep Bs Antigen Non-reactive (Negative) 09/13/18 12:29 Hep B Core IgM Ab Non-reactive (NonReactive) 09/13/18 12:29 Hepatitis C Antibody Non-reactive (NonReactive) 09/13/18 12:29 HIV-1 Antibody See scanned result 09/11/18 19:14 HIV-1 RNA PCR copies/ml 35218 Copies/mL H 09/13/18 12:29 HIV-1 RNA (PCR) log 4.71 Log cps/mL H 09/13/18 12:29 HIV-2 Ab (Immunoblot) See scanned result 09/11/18 19:14 HIV 1&2 Antibody Rapid Reactive (Non React) 09/11/18 19:14 HIV P24 Antigen Non react (Non React) 09/11/18 19:14 Influenza A (Rapid) Negative (Negative) 09/13/18 16:05 Influenza A (RT-PCR) Negative (Negative) 09/13/18 16:05 Influenza B (Rapid) Negative (Negative) 09/13/18 16:05 Influenza B (RT-PCR) Negative (Negative) 09/13/18 16:05 Toxoplasma IgG Ab <7.20 IU/mL (<7.20) 09/16/18 12:09 Miscellaneous Test see below 09/21/18 03:55 Nutrition/Malnutrition Assess - Dietary Evaluation Nutrition/Malnutrition Findings: Nutrition Notes Start: 09/12/18 17:45 Freq: Status: Active Protocol: Document 09/30/18 10:48 CT (Rec: 09/30/18 11:59 CT [id number]) Co-Sign 09/30/18 10:48 LP Nutrition Notes Initial or Follow up Reassessment Current Diagnosis Acute Kidney Injury Sepsis Respiratory Failure Other Pertinent Diagnosis HIV, bilat pneu, gastroenteritis, encephalopathy Current Diet TF- Vital High Protein at 70ml /hr Labs/Tests Na: 150 Pertinent Medications Reviewed. Height 6 ft Weight 115.4 kg [place] Body Weight (kg) 80.90 BMI 34.4 Subjective/Other Information Observed TF running at goal ( 70ml). Percent of energy/protein needs met: 97%/91% Burn Absent Trauma Absent #2 Nutrition Diagnosis Inadequate oral intake Diagnosis Progress(for reassessment Continues documentation) #1 Nutrition Diagnosis Malnutrition Diagnosis Progress(for reassessment Continues documentation) Is patient on ventilator? Yes Is Patient Ambulatory and/or Out of Bed No REE-([facility]-confined to bed) 2566.188 Kcal/Kg value to use for calculation 15 Approximate Energy Requirements Using 1731 kcal/Kg Calculation Used for Recommendations Kcal/kg Additional Notes Pro needs 2g/kg IBW: 162g/day Fluid needs 1ml/kcal Nutrition Intervention Change Diet Order: Continue TF Nutrition Support: Increase water flush to 150 q4h. Kcal 1,680 Protein (gm) 147 Fluid (mL) 1,404 Goal #1 Continue to meet at least 80% of PRO and kcal needs with TF. Follow-Up By: 10/04/18 Additional Comments F/U: stable TF and Na labs
[2018-10-03] MEDS ORDERED: POTASSIUM CHLORIDE FEEDTUBE ONE (09:00)
[2018-10-03] MEDS: ROCEPHIN/NS 2 GM/100 ML 2 GM/100 ML BAG IV SCH (10:52)
[2018-10-03] MEDS: PEPCID PO SCH ×2 (10:53→21:52)
[2018-10-03] MEDS: CORDARONE PO SCH ×2 (10:53→21:52)
[2018-10-03] MEDS: TIVICAY PO SCH (10:53)
[2018-10-03] MEDS: VIREAD PO SCH (10:54)
[2018-10-03] MEDS: DIFLUCAN 200 ML IV SCH (10:54)
[2018-10-03] MEDS: MEPRON PO SCH ×2 (10:54→21:52)
[2018-10-03] MEDS: LOPRESSOR IV SCH ×5 (10:58→20:43)
--- NOTE | 2018-10-03 12:33 | Progress Note ---
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 - continue Robinul & scopolamine for secretion control - continue to hold all sedating medications - ETT day # 14; will continue daytime SBT's for now while following mental status - continue anti-infective's per ID recs (ART has been started appropriately) - continue low dose reglan re: reported increased residuals - continue supplemental oxygen to keep sats > 90% - continue bronchodilators with pulmonary Continue empiric and targeted anti- infective's per ID recs antibiotics per ID - continue set rate at 12/min - continue daily SBT's - daily SAT's once sedation resumed - continue IV heparin for NSTEMI - continue Robinul 2 mg q8h for secretions - IV amiodarone stopped - cardiology evaluation ongoing - diarrhea improved - continue fluconazole for candidiasis - watch for drug-drug interactions - continue enteral nutrition as tolerated - when resumed target sedation for RASS 0 to -1 - PT/OT/ROM exercises as tolerated - mobility protocol for pressure ulcer prophylaxis - continue GI & VTE prophylaxis - continue other care per attending / other consultants ....... care plan discussed at length with next-of-kin at bedside ...... re-evaluate in am & prn The high probability of a clinically significant, sudden or life threatening deterioration of the [cardiac, respiratory and neurologic] system(s) required my full and direct attention, intervention and personal management. The aggregate critical care time was [32] minutes. This time is in addition to time spent performing reported procedures but includes the following: [x] Data Review and interpretation [x] Patient assessment and monitoring of vital signs [x] Documentation [x] Medication orders and management Subjective Date of service: 10/03/18 Principal diagnosis: Severe sepsis; Ac hypoxemic Resp failure; [place]. Pneumonia; Ac encephalopathy Interval history: Patient is seen today for: Severe sepsis (present on admission with fever, tachycardia, hypotension and elevated lactate); Acute hypoxemic Respiratory failure; Bilateral pneumonia; Acute encephalopathy (Toxic / Metabolic); Atrial Fibrillation with RVR Seen and examined at bedside; 24hour events reviewed; nursing and respiratory care staff consulted; no adverse overnight events reported to me; remains encephalopathic; still tolerating PSV trials; no new issues otherwise; remains on IV heparin ACS protocol Objective Vital Signs - 12hr 10/03/18 10/03/18 10/03/18 01:00 01:30 01:32 Temperature Pulse Rate 97 H 97 H Pulse Rate [ From Monitor] Pulse Rate [ 97 H Throughout] Respiratory 25 H 29 H Rate Respiratory 26 H Rate [ Throughout] Blood Pressure 138/78 130/79 O2 Sat by Pulse 100 100 Oximetry 10/03/18 10/03/18 10/03/18 01:48 02:00 02:30 Temperature Pulse Rate 95 H 99 H Pulse Rate [ From Monitor] Pulse Rate [ 97 H Throughout] Respiratory 13 22 Rate Respiratory 27 H Rate [ Throughout] Blood Pressure 130/70 133/74 O2 Sat by Pulse 100 100 Oximetry 10/03/18 10/03/18 10/03/18 03:00 03:30 04:00 Temperature 97.5 F L Pulse Rate 99 H 101 H 97 H Pulse Rate [ 86 From Monitor] Pulse Rate [ Throughout] Respiratory 28 H 29 H 25 H Rate Respiratory Rate [ Throughout] Blood Pressure 126/72 129/79 139/76 O2 Sat by Pulse 100 100 100 Oximetry 10/03/18 10/03/18 10/03/18 04:30 05:00 05:30 Temperature Pulse Rate 100 H 96 H 97 H Pulse Rate [ From Monitor] Pulse Rate [ Throughout] Respiratory 26 H 53 H 23 Rate Respiratory Rate [ Throughout] Blood Pressure 137/80 124/82 128/77 O2 Sat by Pulse 100 100 100 Oximetry 10/03/18 10/03/18 10/03/18 06:00 06:30 07:00 Temperature Pulse Rate 91 H 92 H 91 H Pulse Rate [ From Monitor] Pulse Rate [ Throughout] Respiratory 25 H 21 26 H Rate Respiratory Rate [ Throughout] Blood Pressure 119/64 119/67 119/75 O2 Sat by Pulse 100 100 100 Oximetry 10/03/18 10/03/18 10/03/18 07:57 08:02 08:16 Temperature Pulse Rate 91 H Pulse Rate [ From Monitor] Pulse Rate [ 87 97 H Throughout] Respiratory 23 Rate Respiratory 24 26 H Rate [ Throughout] Blood Pressure 119/71 O2 Sat by Pulse 100 Oximetry 10/03/18 10/03/18 10/03/18 09:29 10:58 11:25 Temperature 98.3 F Pulse Rate 85 104 H Pulse Rate [ From Monitor] Pulse Rate [ Throughout] Respiratory Rate Respiratory Rate [ Throughout] Blood Pressure 118/76 115/63 O2 Sat by Pulse Oximetry 10/03/18 10/03/18 10/03/18 11:26 11:52 12:00 Temperature 98.6 F Pulse Rate 102 H 89 Pulse Rate [ From Monitor] Pulse Rate [ Throughout] Respiratory 17 Rate Respiratory Rate [ Throughout] Blood Pressure 115/63 115/64 O2 Sat by Pulse 100 Oximetry Constitutional: lethargic, agitated, appears uncomfortable, other (orally intubated ETT at 23cm) Eyes: non-icteric ENT: oropharynx moist, other (ETT 25 cm NIKA) Neck: supple, no lymphadenopathy, other (no thyromegaly) Effort: mildly labored Ascultation: Bilateral: rales, rhonchi (scant) Percussion: Bilateral: not dull Cardiovascular: regular rate and rhythm, other (S1,S2, no murmurs, gallps or rubs) Gastrointestinal: normoactive bowel sounds, soft, non-tender, non-distended Integumentary: rash Extremities: no cyanosis, pulses normal, no ischemia or petechiae, edema Neurologic: non-focal exam (grossly), pupils equal and round, motor strength normal and (weak ) Psychiatric: other (unable to assess) CBC and BMP: 10/03/18 06:12 10/03/18 06:12 ABG, PT/INR, D-dimer: ABG POC ABG pH 7.387 (7.35-7.45) 10/01/18 13:06 POC ABG pCO2 44.1 (35-45) 10/01/18 13:06 POC ABG pO2 83 (80-105) 10/01/18 13:06 POC ABG HCO3 26.5 10/01/18 13:06 POC ABG Total CO2 28 10/01/18 13:06 POC ABG O2 Sat 96 10/01/18 13:06 PT/INR, D-dimer PT 19.9 Sec. (12.2-14.9) H 09/21/18 15:00 INR 1.65 (0.87-1.13) H 09/21/18 15:00 Abnormal lab findings: Abnormal Labs 09/11/18 09/11/18 09/11/18 18:00 18:00 18:00 WBC 1.9 L* RBC Hgb Hct RDW Plt Count 130 L Seg Neuts % (Manual) Lymphocytes % (Manual) Monocytes % (Manual) 16.0 H Eosinophils % (Manual) Basophils % (Manual) Nucleated RBC % Seg Neutrophils # Man 0.9 L Abs Lymphs (Manual) Lymphocytes # (Manual) 0.5 L PT INR APTT Heparin Anti-Xa Level POC ABG pH POC ABG pCO2 POC ABG pO2 Sodium 131 L Potassium Chloride Carbon Dioxide 17 L BUN 21 H Creatinine Glucose 126 H POC Glucose Lactic Acid 2.60 H* Calcium 8.1 L Phosphorus AST 123 H ALT 115 H Total Creatine Kinase Total Protein Albumin 3.0 L Vitamin B12 TSH Free T4 CSF VDRL Lymph Enumerat CD4/CD8 Absolute CD3 Count % CD4 Cells Absolute CD4 Count % CD8 Cells Absolute CD19 Count T.pallidum Ab (FTA-ABS) HIV-1 RNA PCR copies/ml HIV-1 RNA (PCR) log Miscellaneous Test 09/11/18 09/13/18 09/13/18 19:01 04:28 07:31 WBC 2.0 L RBC Hgb Hct RDW Plt Count 116 L Seg Neuts % (Manual) Lymphocytes % (Manual) Monocytes % (Manual) 8.0 H Eosinophils % (Manual) Basophils % (Manual) Nucleated RBC % Seg Neutrophils # Man 1.0 L Abs Lymphs (Manual) Lymphocytes # (Manual) 0.5 L PT INR APTT Heparin Anti-Xa Level POC ABG pH POC ABG pCO2 POC ABG pO2 Sodium Potassium Chloride 110.4 H Carbon Dioxide 19 L BUN Creatinine Glucose POC Glucose Lactic Acid 3.70 H* Calcium 7.9 L Phosphorus AST ALT Total Creatine Kinase Total Protein Albumin Vitamin B12 TSH Free T4 CSF VDRL Lymph Enumerat CD4/CD8 Absolute CD3 Count % CD4 Cells Absolute CD4 Count % CD8 Cells Absolute CD19 Count T.pallidum Ab (FTA-ABS) HIV-1 RNA PCR copies/ml HIV-1 RNA (PCR) log Miscellaneous Test 09/13/18 09/13/1819 07:31 12:29 12:29 WBC RBC Hgb Hct RDW Plt Count Seg Neuts % (Manual) Lymphocytes % (Manual) Monocytes % (Manual) Eosinophils % (Manual) Basophils % (Manual) Nucleated RBC % Seg Neutrophils # Man Abs Lymphs (Manual) 309 L Lymphocytes # (Manual) PT INR APTT Heparin Anti-Xa Level POC ABG pH POC ABG pCO2 POC ABG pO2 Sodium Potassium Chloride Carbon Dioxide BUN Creatinine Glucose POC Glucose Lactic Acid Calcium Phosphorus AST 70 H ALT 68 H Total Creatine Kinase Total Protein Albumin 2.5 L Vitamin B12 TSH Free T4 CSF VDRL Lymph Enumerat CD4/CD8 0.01 L Absolute CD3 Count 220 L % CD4 Cells 1 L Absolute CD4 Count 4 L % CD8 Cells 70 H Absolute CD19 Count 54 L T.pallidum Ab (FTA-ABS) HIV-1 RNA PCR copies/ml 93784 H HIV-1 RNA (PCR) log 4.71 H Miscellaneous Test 09/13/18 09/14/18 09/14/18 12:29 07:17 16:34 WBC RBC Hgb Hct RDW Plt Count Seg Neuts % (Manual) Lymphocytes % (Manual) Monocytes % (Manual) Eosinophils % (Manual) Basophils % (Manual) Nucleated RBC % Seg Neutrophils # Man Abs Lymphs (Manual) Lymphocytes # (Manual) PT INR APTT Heparin Anti-Xa Level POC ABG pH POC ABG pCO2 POC ABG pO2 Sodium Potassium 3.4 L Chloride Carbon Dioxide 18 L BUN Creatinine Glucose 104 H POC Glucose Lactic Acid Calcium 7.6 L Phosphorus AST 49 H ALT Total Creatine Kinase Total Protein Albumin 2.5 L Vitamin B12 TSH Free T4 CSF VDRL Lymph Enumerat CD4/CD8 Absolute CD3 Count % CD4 Cells Absolute CD4 Count % CD8 Cells Absolute CD19 Count T.pallidum Ab (FTA-ABS) Reactive H HIV-1 RNA PCR copies/ml HIV-1 RNA (PCR) log Miscellaneous Test Flexitest 1 H 09/15/18 09/15/18 09/15/18 05:05 05:05 Unknown WBC 1.6 L* RBC Hgb 10.4 L Hct 31.1 L D RDW Plt Count 113 L Seg Neuts % (Manual) Lymphocytes % (Manual) Monocytes % (Manual) Eosinophils % (Manual) Basophils % (Manual) Nucleated RBC % Seg Neutrophils # Man Abs Lymphs (Manual) Lymphocytes # (Manual) PT INR APTT Heparin Anti-Xa Level POC ABG pH POC ABG pCO2 POC ABG pO2 Sodium Potassium Chloride 107.9 H Carbon Dioxide 18 L BUN 6 L Creatinine Glucose POC Glucose Lactic Acid Calcium 7.4 L Phosphorus AST ALT Total Creatine Kinase Total Protein Albumin Vitamin B12 TSH Free T4 CSF VDRL Reactive 1:8 H Lymph Enumerat CD4/CD8 Absolute CD3 Count % CD4 Cells Absolute CD4 Count % CD8 Cells Absolute CD19 Count T.pallidum Ab (FTA-ABS) HIV-1 RNA PCR copies/ml HIV-1 RNA (PCR) log Miscellaneous Test 09/16/18 09/16/18 09/16/18 06:55 11:41 11:41 WBC 2.8 L RBC Hgb 10.9 L Hct 33.5 L RDW Plt Count 135 L Seg Neuts % (Manual) Lymphocytes % (Manual) Monocytes % (Manual) Eosinophils % (Manual) Basophils % (Manual) Nucleated RBC % Seg Neutrophils # Man Abs Lymphs (Manual) Lymphocytes # (Manual) PT INR APTT Heparin Anti-Xa Level POC ABG pH POC ABG pCO2 POC ABG pO2 Sodium Potassium Chloride Carbon Dioxide BUN Creatinine Glucose POC Glucose Lactic Acid Calcium Phosphorus AST ALT Total Creatine Kinase Total Protein Albumin Vitamin B12 TSH 4.210 H Free T4 0.72 L CSF VDRL Lymph Enumerat CD4/CD8 Absolute CD3 Count % CD4 Cells Absolute CD4 Count % CD8 Cells Absolute CD19 Count T.pallidum Ab (FTA-ABS) HIV-1 RNA PCR copies/ml HIV-1 RNA (PCR) log Miscellaneous Test 09/16/18 09/16/18 09/17/18 11:41 15:43 05:13 WBC 2.0 L RBC Hgb 10.9 L Hct 32.7 L RDW Plt Count Seg Neuts % (Manual) Lymphocytes % (Manual) Monocytes % (Manual) Eosinophils % (Manual) Basophils % (Manual) Nucleated RBC % Seg Neutrophils # Man Abs Lymphs (Manual) Lymphocytes # (Manual) PT INR APTT Heparin Anti-Xa Level POC ABG pH POC ABG pCO2 29.3 L POC ABG pO2 70 L Sodium Potassium Chloride Carbon Dioxide BUN Creatinine Glucose POC Glucose Lactic Acid Calcium Phosphorus AST ALT Total Creatine Kinase Total Protein Albumin Vitamin B12 934.5 H TSH Free T4 CSF VDRL Lymph Enumerat CD4/CD8 Absolute CD3 Count % CD4 Cells Absolute CD4 Count % CD8 Cells Absolute CD19 Count T.pallidum Ab (FTA-ABS) HIV-1 RNA PCR copies/ml HIV-1 RNA (PCR) log Miscellaneous Test 09/17/18 09/17/18 09/18/18 05:13 21:57 12:46 WBC RBC Hgb Hct RDW Plt Count Seg Neuts % (Manual) Lymphocytes % (Manual) Monocytes % (Manual) Eosinophils % (Manual) Basophils % (Manual) Nucleated RBC % Seg Neutrophils # Man Abs Lymphs (Manual) Lymphocytes # (Manual) PT INR APTT Heparin Anti-Xa Level POC ABG pH POC ABG pCO2 POC ABG pO2 Sodium Potassium Chloride 107.2 H Carbon Dioxide 21 L BUN 3 L Creatinine 0.7 L Glucose POC Glucose 108 H Lactic Acid Calcium 7.9 L Phosphorus AST ALT Total Creatine Kinase Total Protein 6.1 L Albumin 2.6 L Vitamin B12 TSH Free T4 0.75 L CSF VDRL Lymph Enumerat CD4/CD8 Absolute CD3 Count % CD4 Cells Absolute CD4 Count % CD8 Cells Absolute CD19 Count T.pallidum Ab (FTA-ABS) HIV-1 RNA PCR copies/ml HIV-1 RNA (PCR) log Miscellaneous Test 09/18/18 09/19/18 09/19/18 12:46 04:57 04:57 WBC 2.1 L RBC Hgb 11.4 L Hct 34.2 L RDW Plt Count Seg Neuts % (Manual) Lymphocytes % (Manual) Monocytes % (Manual) Eosinophils % (Manual) Basophils % (Manual) Nucleated RBC % Seg Neutrophils # Man Abs Lymphs (Manual) Lymphocytes # (Manual) PT INR APTT Heparin Anti-Xa Level POC ABG pH POC ABG pCO2 POC ABG pO2 Sodium Potassium Chloride Carbon Dioxide 19 L BUN 6 L Creatinine Glucose POC Glucose Lactic Acid Calcium 7.9 L Phosphorus AST ALT Total Creatine Kinase Total Protein Albumin Vitamin B12 TSH 5.190 H Free T4 CSF VDRL Lymph Enumerat CD4/CD8 Absolute CD3 Count % CD4 Cells Absolute CD4 Count % CD8 Cells Absolute CD19 Count T.pallidum Ab (FTA-ABS) HIV-1 RNA PCR copies/ml HIV-1 RNA (PCR) log Miscellaneous Test 09/19/18 09/19/18 09/20/18 15:00 15:00 05:33 WBC RBC Hgb Hct RDW Plt Count Seg Neuts % (Manual) Lymphocytes % (Manual) Monocytes % (Manual) Eosinophils % (Manual) Basophils % (Manual) Nucleated RBC % Seg Neutrophils # Man Abs Lymphs (Manual) Lymphocytes # (Manual) PT INR APTT Heparin Anti-Xa Level POC ABG pH POC ABG pCO2 POC ABG pO2 Sodium 136 L Potassium Chloride Carbon Dioxide 19 L BUN 7 L Creatinine Glucose POC Glucose Lactic Acid Calcium Phosphorus AST ALT Total Creatine Kinase Total Protein Albumin Vitamin B12 TSH Free T4 CSF VDRL Reactive 1:4 H Lymph Enumerat CD4/CD8 Absolute CD3 Count % CD4 Cells Absolute CD4 Count % CD8 Cells Absolute CD19 Count T.pallidum Ab (FTA-ABS) HIV-1 RNA PCR copies/ml HIV-1 RNA (PCR) log Miscellaneous Test Flexitest 1 H 09/20/18 09/21/18 09/21/18 06:52 01:06 03:49 WBC 2.5 L RBC Hgb Hct RDW Plt Count Seg Neuts % (Manual) Lymphocytes % (Manual) Monocytes % (Manual) Eosinophils % (Manual) Basophils % (Manual) Nucleated RBC % Seg Neutrophils # Man Abs Lymphs (Manual) Lymphocytes # (Manual) PT INR APTT Heparin Anti-Xa Level POC ABG pH 7.159 L POC ABG pCO2 32.9 L 70.0 H POC ABG pO2 62 L 254 H Sodium Potassium Chloride Carbon Dioxide BUN Creatinine Glucose POC Glucose Lactic Acid Calcium Phosphorus AST ALT Total Creatine Kinase Total Protein Albumin Vitamin B12 TSH Free T4 CSF VDRL Lymph Enumerat CD4/CD8 Absolute CD3 Count % CD4 Cells Absolute CD4 Count % CD8 Cells Absolute CD19 Count T.pallidum Ab (FTA-ABS) HIV-1 RNA PCR copies/ml HIV-1 RNA (PCR) log Miscellaneous Test 09/21/18 09/21/18 09/21/18 04:15 04:15 04:25 WBC 3.1 L RBC Hgb 11.6 L Hct RDW Plt Count Seg Neuts % (Manual) Lymphocytes % (Manual) Monocytes % (Manual) 12.0 H Eosinophils % (Manual) Basophils % (Manual) Nucleated RBC % Seg Neutrophils # Man 1.6 L Abs Lymphs (Manual) Lymphocytes # (Manual) 0.5 L PT INR APTT Heparin Anti-Xa Level POC ABG pH POC ABG pCO2 POC ABG pO2 Sodium Potassium 6.1 H* D Chloride Carbon Dioxide 19 L BUN Creatinine Glucose 108 H POC Glucose Lactic Acid Calcium Phosphorus AST ALT Total Creatine Kinase 685 H Total Protein Albumin Vitamin B12 TSH Free T4 CSF VDRL Lymph Enumerat CD4/CD8 Absolute CD3 Count % CD4 Cells Absolute CD4 Count % CD8 Cells Absolute CD19 Count T.pallidum Ab (FTA-ABS) HIV-1 RNA PCR copies/ml HIV-1 RNA (PCR) log Miscellaneous Test 09/21/18 09/21/18 09/21/18 09:59 10:07 11:00 WBC RBC Hgb 11.7 L Hct RDW Plt Count Seg Neuts % (Manual) Lymphocytes % (Manual) Monocytes % (Manual) Eosinophils % (Manual) Basophils % (Manual) Nucleated RBC % Seg Neutrophils # Man Abs Lymphs (Manual) Lymphocytes # (Manual) PT INR APTT Heparin Anti-Xa Level POC ABG pH 7.301 L POC ABG pCO2 POC ABG pO2 109 H Sodium Potassium 6.5 H* Chloride Carbon Dioxide 18 L BUN Creatinine 2.1 H D Glucose POC Glucose Lactic Acid Calcium 8.1 L Phosphorus AST 94 H ALT Total Creatine Kinase Total Protein Albumin 2.8 L Vitamin B12 TSH Free T4 CSF VDRL Lymph Enumerat CD4/CD8 Absolute CD3 Count % CD4 Cells Absolute CD4 Count % CD8 Cells Absolute CD19 Count T.pallidum Ab (FTA-ABS) HIV-1 RNA PCR copies/ml HIV-1 RNA (PCR) log Miscellaneous Test 09/21/18 09/21/18 09/21/18 15:00 21:54 21:54 WBC RBC Hgb Hct RDW Plt Count Seg Neuts % (Manual) Lymphocytes % (Manual) Monocytes % (Manual) Eosinophils % (Manual) Basophils % (Manual) Nucleated RBC % Seg Neutrophils # Man Abs Lymphs (Manual) Lymphocytes # (Manual) PT 19.9 H INR 1.65 H APTT 40.9 H Heparin Anti-Xa Level 0.98 H POC ABG pH POC ABG pCO2 POC ABG pO2 Sodium Potassium 5.2 H Chloride Carbon Dioxide BUN Creatinine Glucose POC Glucose Lactic Acid Calcium Phosphorus AST ALT Total Creatine Kinase Total Protein Albumin Vitamin B12 TSH Free T4 CSF VDRL Lymph Enumerat CD4/CD8 Absolute CD3 Count % CD4 Cells Absolute CD4 Count % CD8 Cells Absolute CD19 Count T.pallidum Ab (FTA-ABS) HIV-1 RNA PCR copies/ml HIV-1 RNA (PCR) log Miscellaneous Test 09/21/18 09/22/18 09/22/18 22:57 03:01 05:27 WBC RBC Hgb Hct RDW Plt Count Seg Neuts % (Manual) Lymphocytes % (Manual) Monocytes % (Manual) Eosinophils % (Manual) Basophils % (Manual) Nucleated RBC % Seg Neutrophils # Man Abs Lymphs (Manual) Lymphocytes # (Manual) PT INR APTT Heparin Anti-Xa Level POC ABG pH POC ABG pCO2 32.7 L POC ABG pO2 Sodium Potassium Chloride Carbon Dioxide BUN Creatinine Glucose POC Glucose 124 H 128 H Lactic Acid Calcium Phosphorus AST ALT Total Creatine Kinase Total Protein Albumin Vitamin B12 TSH Free T4 CSF VDRL Lymph Enumerat CD4/CD8 Absolute CD3 Count % CD4 Cells Absolute CD4 Count % CD8 Cells Absolute CD19 Count T.pallidum Ab (FTA-ABS) HIV-1 RNA PCR copies/ml HIV-1 RNA (PCR) log Miscellaneous Test 09/22/18 09/22/18 09/22/18 07:00 07:00 11:32 WBC 1.8 L* RBC 3.59 L Hgb 10.1 L Hct 30.8 L RDW Plt Count 126 L Seg Neuts % (Manual) Lymphocytes % (Manual) Monocytes % (Manual) Eosinophils % (Manual) Basophils % (Manual) Nucleated RBC % Seg Neutrophils # Man Abs Lymphs (Manual) Lymphocytes # (Manual) PT INR APTT Heparin Anti-Xa Level POC ABG pH POC ABG pCO2 POC ABG pO2 Sodium Potassium Chloride Carbon Dioxide BUN 27 H Creatinine 2.0 H Glucose 128 H POC Glucose 123 H Lactic Acid Calcium 6.9 L Phosphorus AST ALT Total Creatine Kinase Total Protein Albumin Vitamin B12 TSH Free T4 CSF VDRL Lymph Enumerat CD4/CD8 Absolute CD3 Count % CD4 Cells Absolute CD4 Count % CD8 Cells Absolute CD19 Count T.pallidum Ab (FTA-ABS) HIV-1 RNA PCR copies/ml HIV-1 RNA (PCR) log Miscellaneous Test 09/22/18 09/22/18 09/22/18 15:52 18:18 23:52 WBC RBC Hgb Hct RDW Plt Count Seg Neuts % (Manual) Lymphocytes % (Manual) Monocytes % (Manual) Eosinophils % (Manual) Basophils % (Manual) Nucleated RBC % Seg Neutrophils # Man Abs Lymphs (Manual) Lymphocytes # (Manual) PT INR APTT Heparin Anti-Xa Level POC ABG pH POC ABG pCO2 48.7 H POC ABG pO2 Sodium Potassium Chloride Carbon Dioxide BUN Creatinine Glucose POC Glucose 110 H 124 H Lactic Acid Calcium Phosphorus AST ALT Total Creatine Kinase Total Protein Albumin Vitamin B12 TSH Free T4 CSF VDRL Lymph Enumerat CD4/CD8 Absolute CD3 Count % CD4 Cells Absolute CD4 Count % CD8 Cells Absolute CD19 Count T.pallidum Ab (FTA-ABS) HIV-1 RNA PCR copies/ml HIV-1 RNA (PCR) log Miscellaneous Test 09/23/18 09/23/18 09/23/18 04:10 05:55 05:55 WBC RBC Hgb 10.0 L Hct 30.3 L RDW Plt Count 117 L Seg Neuts % (Manual) Lymphocytes % (Manual) Monocytes % (Manual) Eosinophils % (Manual) Basophils % (Manual) Nucleated RBC % Seg Neutrophils # Man Abs Lymphs (Manual) Lymphocytes # (Manual) PT INR APTT Heparin Anti-Xa Level 0.26 L POC ABG pH POC ABG pCO2 POC ABG pO2 144 H Sodium Potassium Chloride Carbon Dioxide BUN Creatinine Glucose POC Glucose Lactic Acid Calcium Phosphorus AST ALT Total Creatine Kinase Total Protein Albumin Vitamin B12 TSH Free T4 CSF VDRL Lymph Enumerat CD4/CD8 Absolute CD3 Count % CD4 Cells Absolute CD4 Count % CD8 Cells Absolute CD19 Count T.pallidum Ab (FTA-ABS) HIV-1 RNA PCR copies/ml HIV-1 RNA (PCR) log Miscellaneous Test 09/23/18 09/23/18 09/23/18 08:10 08:10 23:57 WBC 1.3 L* RBC 3.53 L Hgb 9.9 L Hct 30.0 L RDW Plt Count 119 L Seg Neuts % (Manual) Lymphocytes % (Manual) Monocytes % (Manual) Eosinophils % (Manual) Basophils % (Manual) Nucleated RBC % Seg Neutrophils # Man Abs Lymphs (Manual) Lymphocytes # (Manual) PT INR APTT Heparin Anti-Xa Level POC ABG pH POC ABG pCO2 POC ABG pO2 Sodium Potassium Chloride Carbon Dioxide BUN Creatinine Glucose 122 H POC Glucose 115 H Lactic Acid Calcium 6.9 L Phosphorus AST ALT Total Creatine Kinase Total Protein Albumin Vitamin B12 TSH Free T4 CSF VDRL Lymph Enumerat CD4/CD8 Absolute CD3 Count % CD4 Cells Absolute CD4 Count % CD8 Cells Absolute CD19 Count T.pallidum Ab (FTA-ABS) HIV-1 RNA PCR copies/ml HIV-1 RNA (PCR) log Miscellaneous Test 09/24/18 09/24/18 09/24/18 12:04 14:42 18:10 WBC RBC Hgb Hct RDW Plt Count Seg Neuts % (Manual) Lymphocytes % (Manual) Monocytes % (Manual) Eosinophils % (Manual) Basophils % (Manual) Nucleated RBC % Seg Neutrophils # Man Abs Lymphs (Manual) Lymphocytes # (Manual) PT INR APTT Heparin Anti-Xa Level 0.76 H POC ABG pH POC ABG pCO2 POC ABG pO2 Sodium Potassium Chloride Carbon Dioxide BUN Creatinine Glucose POC Glucose 111 H 138 H Lactic Acid Calcium Phosphorus AST ALT Total Creatine Kinase Total Protein Albumin Vitamin B12 TSH Free T4 CSF VDRL Lymph Enumerat CD4/CD8 Absolute CD3 Count % CD4 Cells Absolute CD4 Count % CD8 Cells Absolute CD19 Count T.pallidum Ab (FTA-ABS) HIV-1 RNA PCR copies/ml HIV-1 RNA (PCR) log Miscellaneous Test 09/25/18 09/25/18 09/25/18 03:45 04:24 14:20 WBC RBC Hgb 9.7 L Hct 29.4 L RDW Plt Count 104 L Seg Neuts % (Manual) Lymphocytes % (Manual) Monocytes % (Manual) Eosinophils % (Manual) Basophils % (Manual) Nucleated RBC % Seg Neutrophils # Man Abs Lymphs (Manual) Lymphocytes # (Manual) PT INR APTT Heparin Anti-Xa Level POC ABG pH 7.460 H POC ABG pCO2 32.9 L POC ABG pO2 Sodium Potassium 3.5 L Chloride 110.3 H Carbon Dioxide BUN Creatinine Glucose 105 H POC Glucose Lactic Acid Calcium 6.7 L Phosphorus AST 633 H ALT 481 H Total Creatine Kinase Total Protein 4.8 L D Albumin 1.9 L Vitamin B12 TSH Free T4 CSF VDRL Lymph Enumerat CD4/CD8 Absolute CD3 Count % CD4 Cells Absolute CD4 Count % CD8 Cells Absolute CD19 Count T.pallidum Ab (FTA-ABS) HIV-1 RNA PCR copies/ml HIV-1 RNA (PCR) log Miscellaneous Test 09/26/18 09/26/18 09/26/18 06:15 06:15 10:43 WBC 1.2 L* RBC 3.32 L Hgb 9.2 L Hct 28.6 L RDW Plt Count 97 L Seg Neuts % (Manual) 24.0 L Lymphocytes % (Manual) 43.0 H Monocytes % (Manual) 19.0 H Eosinophils % (Manual) 8.0 H Basophils % (Manual) 2.0 H Nucleated RBC % 3.0 H Seg Neutrophils # Man 0.0 L Abs Lymphs (Manual) Lymphocytes # (Manual) 0.0 L PT INR APTT Heparin Anti-Xa Level POC ABG pH 7.459 H POC ABG pCO2 POC ABG pO2 141 H Sodium Potassium Chloride 112.8 H Carbon Dioxide BUN Creatinine Glucose 110 H POC Glucose Lactic Acid Calcium 7.0 L Phosphorus 0.90 L* AST 362 H ALT 360 H Total Creatine Kinase Total Protein 4.9 L Albumin 1.5 L Vitamin B12 TSH Free T4 CSF VDRL Lymph Enumerat CD4/CD8 Absolute CD3 Count % CD4 Cells Absolute CD4 Count % CD8 Cells Absolute CD19 Count T.pallidum Ab (FTA-ABS) HIV-1 RNA PCR copies/ml HIV-1 RNA (PCR) log Miscellaneous Test 09/26/18 09/27/18 09/28/18 13:56 04:11 07:49 WBC RBC Hgb 9.1 L Hct 29.1 L RDW Plt Count 96 L Seg Neuts % (Manual) Lymphocytes % (Manual) Monocytes % (Manual) Eosinophils % (Manual) Basophils % (Manual) Nucleated RBC % Seg Neutrophils # Man Abs Lymphs (Manual) Lymphocytes # (Manual) PT INR APTT Heparin Anti-Xa Level POC ABG pH POC ABG pCO2 POC ABG pO2 Sodium 146 H Potassium Chloride 111.6 H Carbon Dioxide BUN Creatinine Glucose POC Glucose 135 H Lactic Acid Calcium 7.4 L Phosphorus AST ALT Total Creatine Kinase Total Protein Albumin Vitamin B12 TSH Free T4 CSF VDRL Lymph Enumerat CD4/CD8 Absolute CD3 Count % CD4 Cells Absolute CD4 Count % CD8 Cells Absolute CD19 Count T.pallidum Ab (FTA-ABS) HIV-1 RNA PCR copies/ml HIV-1 RNA (PCR) log Miscellaneous Test 09/28/18 09/29/18 09/29/18 10:43 05:00 05:00 WBC 1.2 L* RBC 3.13 L Hgb 8.6 L Hct 27.3 L RDW Plt Count 137 L Seg Neuts % (Manual) Lymphocytes % (Manual) Monocytes % (Manual) 16.0 H Eosinophils % (Manual) Basophils % (Manual) Nucleated RBC % 4.0 H Seg Neutrophils # Man 0.5 L Abs Lymphs (Manual) Lymphocytes # (Manual) 0.3 L PT INR APTT Heparin Anti-Xa Level POC ABG pH 7.300 L POC ABG pCO2 53.9 H POC ABG pO2 Sodium 147 H Potassium 3.4 L Chloride 114.5 H Carbon Dioxide BUN Creatinine Glucose POC Glucose Lactic Acid Calcium 7.7 L Phosphorus AST 69 H ALT 110 H Total Creatine Kinase Total Protein 5.2 L Albumin 1.9 L Vitamin B12 TSH Free T4 CSF VDRL Lymph Enumerat CD4/CD8 Absolute CD3 Count % CD4 Cells Absolute CD4 Count % CD8 Cells Absolute CD19 Count T.pallidum Ab (FTA-ABS) HIV-1 RNA PCR copies/ml HIV-1 RNA (PCR) log Miscellaneous Test 09/29/18 09/29/18 09/30/18 06:07 13:22 05:19 WBC 0.9 L* RBC 3.03 L Hgb 8.6 L Hct 25.9 L RDW Plt Count Seg Neuts % (Manual) Lymphocytes % (Manual) Monocytes % (Manual) Eosinophils % (Manual) Basophils % (Manual) Nucleated RBC % Seg Neutrophils # Man Abs Lymphs (Manual) Lymphocytes # (Manual) PT INR APTT Heparin Anti-Xa Level POC ABG pH POC ABG pCO2 46.9 H POC ABG pO2 Sodium Potassium Chloride Carbon Dioxide BUN Creatinine Glucose POC Glucose 109 H Lactic Acid Calcium Phosphorus AST ALT Total Creatine Kinase Total Protein Albumin Vitamin B12 TSH Free T4 CSF VDRL Lymph Enumerat CD4/CD8 Absolute CD3 Count % CD4 Cells Absolute CD4 Count % CD8 Cells Absolute CD19 Count T.pallidum Ab (FTA-ABS) HIV-1 RNA PCR copies/ml HIV-1 RNA (PCR) log Miscellaneous Test 09/30/18 09/30/18 09/30/18 05:19 11:14 23:28 WBC RBC Hgb Hct RDW Plt Count Seg Neuts % (Manual) Lymphocytes % (Manual) Monocytes % (Manual) Eosinophils % (Manual) Basophils % (Manual) Nucleated RBC % Seg Neutrophils # Man Abs Lymphs (Manual) Lymphocytes # (Manual) PT INR APTT Heparin Anti-Xa Level 0.72 H POC ABG pH POC ABG pCO2 46.6 H POC ABG pO2 Sodium 150 H Potassium Chloride 115.2 H Carbon Dioxide BUN Creatinine Glucose POC Glucose Lactic Acid Calcium 7.9 L Phosphorus AST ALT Total Creatine Kinase Total Protein Albumin Vitamin B12 TSH Free T4 CSF VDRL Lymph Enumerat CD4/CD8 Absolute CD3 Count % CD4 Cells Absolute CD4 Count % CD8 Cells Absolute CD19 Count T.pallidum Ab (FTA-ABS) HIV-1 RNA PCR copies/ml HIV-1 RNA (PCR) log Miscellaneous Test 10/01/18 10/01/18 10/02/18 04:55 04:55 07:15 WBC 0.9 L* 0.7 L* RBC 3.01 L 2.92 L Hgb 8.4 L 8.4 L Hct 26.0 L 24.9 L RDW Plt Count Seg Neuts % (Manual) Lymphocytes % (Manual) Monocytes % (Manual) Eosinophils % (Manual) Basophils % (Manual) Nucleated RBC % Seg Neutrophils # Man Abs Lymphs (Manual) Lymphocytes # (Manual) PT INR APTT Heparin Anti-Xa Level POC ABG pH POC ABG pCO2 POC ABG pO2 Sodium 147 H Potassium 3.4 L Chloride 113.1 H Carbon Dioxide BUN 22 H Creatinine Glucose POC Glucose Lactic Acid Calcium 7.3 L Phosphorus AST ALT Total Creatine Kinase Total Protein Albumin Vitamin B12 TSH Free T4 CSF VDRL Lymph Enumerat CD4/CD8 Absolute CD3 Count % CD4 Cells Absolute CD4 Count % CD8 Cells Absolute CD19 Count T.pallidum Ab (FTA-ABS) HIV-1 RNA PCR copies/ml HIV-1 RNA (PCR) log Miscellaneous Test 10/02/18 10/03/18 10/03/18 07:15 06:12 06:12 WBC 0.8 L* RBC 2.96 L Hgb 8.5 L Hct 25.9 L RDW 15.4 H Plt Count Seg Neuts % (Manual) Lymphocytes % (Manual) Monocytes % (Manual) Eosinophils % (Manual) Basophils % (Manual) Nucleated RBC % Seg Neutrophils # Man Abs Lymphs (Manual) Lymphocytes # (Manual) PT INR APTT Heparin Anti-Xa Level POC ABG pH POC ABG pCO2 POC ABG pO2 Sodium Potassium 3.4 L 3.4 L Chloride 108.3 H Carbon Dioxide BUN Creatinine Glucose POC Glucose Lactic Acid Calcium 7.6 L 7.4 L Phosphorus AST ALT Total Creatine Kinase Total Protein Albumin Vitamin B12 TSH Free T4 CSF VDRL Lymph Enumerat CD4/CD8 Absolute CD3 Count % CD4 Cells Absolute CD4 Count % CD8 Cells Absolute CD19 Count T.pallidum Ab (FTA-ABS) HIV-1 RNA PCR copies/ml HIV-1 RNA (PCR) log Miscellaneous Test 10/03/18 11:45 WBC RBC Hgb Hct RDW Plt Count Seg Neuts % (Manual) Lymphocytes % (Manual) Monocytes % (Manual) Eosinophils % (Manual) Basophils % (Manual) Nucleated RBC % Seg Neutrophils # Man Abs Lymphs (Manual) Lymphocytes # (Manual) PT INR APTT Heparin Anti-Xa Level 1.34 H POC ABG pH POC ABG pCO2 POC ABG pO2 Sodium Potassium Chloride Carbon Dioxide BUN Creatinine Glucose POC Glucose Lactic Acid Calcium Phosphorus AST ALT Total Creatine Kinase Total Protein Albumin Vitamin B12 TSH Free T4 CSF VDRL Lymph Enumerat CD4/CD8 Absolute CD3 Count % CD4 Cells Absolute CD4 Count % CD8 Cells Absolute CD19 Count T.pallidum Ab (FTA-ABS) HIV-1 RNA PCR copies/ml HIV-1 RNA (PCR) log Miscellaneous Test Allied health notes reviewed: nursing
--- NOTE | 2018-10-03 13:26 | XRay Report ---
AP CHEST: HISTORY: Pneumonia Lines and tubes are unchanged since 09/28/18. Normal heart and mediastinal structures. The lungs are clear. No pleural effusion or pneumothorax. IMPRESSION: Unremarkable AP chest.
[2018-10-03] MEDS ORDERED: MAGNESIUM SULFATE 4GM/100ML 4 GM/100 ML BAG IV ONE (15:05)
[2018-10-03] MEDS: EMTRIVA PO SCH (15:42)
[2018-10-03] MEDS: SODIUM CHLORIDE FLUSH SYRINGE 10 ML IV SCH ×3 (15:43→21:55)
--- NOTE | 2018-10-03 16:07 | Consultation ---
History of Present Illness Consult date: 10/03/18 Reason for consult: other (trach/PEG eval) Requesting physician: CHRISTA ANN Chief complaint: respiratory failure - History of present illness History of present illness: 33yo M with HIV presented to ED with ill feeling. He subsequently developed acute respiratory failure. Patient has been unable to be weaned off of the ventilator. We're being asked to see the patient for consideration of tracheostomy and PEG tube placement. Medical history is been obtained from the chart and consultants. Patient is unable to participate in the interview. Past History Past Medical History: No medical history, HIV/AIDS, other (reviewed) Past Surgical History: No surgical history, Other (reviewed) Social history: single, lives with family, smoking, other (alcohol ). denies: prescription drug abuse Family history: no significant family history (reviewed) Medications and Allergies Allergies Allergy/AdvReac Type Severity Reaction Status Date / Time No Known Allergies Allergy Unverified 09/11/18 17:50 Home Medications Medication Instructions Recorded Confirmed Last Taken Type No Known Home Medications [No 10/02/18 10/02/18 Unknown History Reported Home Medications] Active Meds: Active Medications Acetaminophen (Tylenol) 650 mg PO Q4H PRN PRN Reason: Pain MILD(1-3)/Fever >100.5/RIVERA Last Admin: 09/23/18 08:41 Dose: 650 mg Documented by: Acetaminophen (Tylenol) 650 mg [place] Q4H PRN PRN Reason: Fever >101 Albuterol (Proventil) 2.5 mg IH Q4HRT PRN PRN Reason: Shortness Of Breath Last Admin: 09/16/18 06:09 Dose: 2.5 mg Documented by: Albuterol (Proventil) 2.5 mg IH Q6HRT [facility] Last Admin: 10/03/18 13:55 Dose: 2.5 mg Documented by: Amiodarone HCl (Cordarone) 200 mg PO BID [facility] Last Admin: 10/03/18 10:53 Dose: 200 mg Documented by: Lipase/Protease/Amylase (Abril Gibbs 10,500 Unit) 1 each FEEDTUBE PRN PRN PRN Reason: For Clogged Feeding Tube Atovaquone (Mepron) 750 mg PO BID [facility] Last Admin: 10/03/18 10:54 Dose: 750 mg Documented by: Azithromycin (Zithromax) 1,200 mg PO Awlters [facility] Last Admin: 10/02/18 09:00 Dose: 1,200 mg Documented by: Emtricitabine (Emtriva) 200 mg PO QDAY [facility] Last Admin: 10/03/18 15:42 Dose: Not Given Documented by: Famotidine (Pepcid) 20 mg PO BID [facility] Last Admin: 10/03/18 10:53 Dose: 20 mg Documented by: Glycopyrrolate (Robinul) 2 mg PO Q8HR [facility] Last Admin: 10/03/18 14:00 Dose: 2 mg Documented by: Hydrophilic Ointment (Vaseline Lip Therapy) 1 applic TP Q2HR PRN PRN Reason: Dry Lips Last Admin: 09/22/18 03:46 Dose: 1 applic Documented by: Fluconazole (Diflucan) 200 mls @ 100 mls/hr IV Q24HR [facility]; Protocol Last Admin: 10/03/18 10:54 Dose: 100 mls/hr Documented by: Heparin Sodium/Sodium Chloride (Heparin/ 0.45% Nacl-25,000 Unit/500 Ml) 25,000 unit in 500 mls @ 30 mls/hr IV TITR [facility]; Protocol Last Admin: 10/03/18 03:14 Dose: 1,200 units/hr, 24 mls/hr Documented by: Ganciclovir Sodium 500 mg/ (Sodium Chloride) 250 mls @ 100 mls/hr IV Q12H [facility] Last Admin: 10/03/18 10:14 Dose: 100 mls/hr Documented by: Ceftriaxone Sodium (Rocephin/Ns 2 Gm/100 Ml) 2 gm in 100 mls @ 200 mls/hr IV Q12HR [facility]; Protocol Last Admin: 10/03/18 10:52 Dose: 200 mls/hr Documented by: Dextrose (D5w) 1,000 mls @ 50 mls/hr IV DIRECT [facility] Last Admin: 10/03/18 02:08 Dose: 50 mls/hr Documented by: Magnesium Sulfate (Magnesium Sulfate 4gm/100ml) 4 gm in 100 mls @ 25 mls/hr IV ONCE ONE Stop: 10/03/18 19:04 Last Admin: 10/03/18 15:45 Dose: 25 mls/hr Documented by: Levothyroxine Sodium (Synthroid) 25 mcg PO DAILY@0600 [facility] Last Admin: 10/03/18 06:00 Dose: 25 mcg Documented by: Metoprolol Tartrate (Lopressor) 5 mg IV Q6H [facility] Last Admin: 10/03/18 11:26 Dose: Not Given Documented by: Metronidazole (Flagyl) 500 mg PO Q8HR [facility]; Protocol Last Admin: 10/03/18 15:44 Dose: Not Given Documented by: Multi-Ingred Cream/Lotion/Oil/Oint (Artificial Tears Ophth Oint) 1 applic OU Q4HR PRN PRN Reason: Dry Eye(s) Ondansetron HCl (Zofran) 4 mg IV Q8H PRN PRN Reason: Nausea And Vomiting Scopolamine (Transderm-Scop) 1 each TD Q3D [facility] Last Admin: 09/30/18 18:43 Dose: 1 each Documented by: Simple Syrup (Simple Syrup) 15 ml FEEDTUBE PRN PRN PRN Reason: Hypoglycemia Simple Syrup (Simple Syrup) 30 ml FEEDTUBE PRN PRN PRN Reason: Hypoglycemia Sodium Bicarbonate (Sodium Bicarbonate) 325 mg FEEDTUBE PRN PRN PRN Reason: For Clogged Feeding Tube Sodium Chloride (Sodium Chloride Flush Syringe 10 Ml) 10 ml IV BID [facility] Last Admin: 10/03/18 15:43 Dose: Not Given Documented by: Sodium Chloride (Sodium Chloride Flush Syringe 10 Ml) 10 ml IV PRN PRN PRN Reason: LINE FLUSH Tenofovir Disoproxil Fumarate (Viread) 300 mg PO QDAY [facility] Last Admin: 10/03/18 10:54 Dose: 300 mg Documented by: Review of Systems ROS unobtainable: due to mental status Exam Vital Signs Temp Pulse BP Pulse Ox 98.5 F 136 H 89/54 99 09/11/18 17:47 09/11/18 17:47 09/11/18 17:47 09/11/18 17:47 - General physical appearance Positive: no distress, no pain - Eyes Positive: other (nystagmus) - Neck Positive: no masses, no bruits, trachea midline, other (no signs of trauma, incisions, infections. trachea is easily palpable) - Respiratory Positive: normal expansion, normal respiratory effort, other (low vent settings) - Cardiovascular Rhythm: irregularly irregular - Abdomen Abdomen: Present: soft. Absent: tender, distended, wound, surgical scars - Integumentary no rash, no growths, no abnormal pigmentation Results - Labs 10/03/18 06:12 10/03/18 06:12 Abnormal lab results 10/03/18 10/03/18 10/03/18 Range/Units 06:12 06:12 11:45 WBC 0.8 L* (4.5-11.0) K/mm3 RBC 2.96 L (3.65-5.03) M/mm3 Hgb 8.5 L (11.8-15.2) gm/dl Hct 25.9 L (35.5-45.6) % RDW 15.4 H (13.2-15.2) % Heparin Anti-Xa Level 1.34 H (0.3-0.7) U.I./ml Potassium 3.4 L (3.6-5.0) mmol/L Calcium 7.4 L (8.4-10.2) mg/dL Magnesium (1.7-2.3) mg/dL 10/03/18 Range/Units 13:23 WBC (4.5-11.0) K/mm3 RBC (3.65-5.03) M/mm3 Hgb (11.8-15.2) gm/dl Hct (35.5-45.6) % RDW (13.2-15.2) % Heparin Anti-Xa Level (0.3-0.7) U.I./ml Potassium (3.6-5.0) mmol/L Calcium (8.4-10.2) mg/dL Magnesium 1.40 L (1.7-2.3) mg/dL Diabetes panel 10/03/18 Range/Units 06:12 Sodium 141 (137-145) mmol/L Potassium 3.4 L (3.6-5.0) mmol/L Chloride 106.6 (98-107) mmol/L Carbon Dioxide 26 (22-30) mmol/L BUN 17 (9-20) mg/dL Creatinine 0.9 (0.8-1.5) mg/dL Glucose 98 (75-100) mg/dL Calcium 7.4 L (8.4-10.2) mg/dL Calcium panel 10/03/18 Range/Units 06:12 Calcium 7.4 L (8.4-10.2) mg/dL Pituitary panel 10/03/18 Range/Units 06:12 Sodium 141 (137-145) mmol/L Potassium 3.4 L (3.6-5.0) mmol/L Chloride 106.6 (98-107) mmol/L Carbon Dioxide 26 (22-30) mmol/L BUN 17 (9-20) mg/dL Creatinine 0.9 (0.8-1.5) mg/dL Glucose 98 (75-100) mg/dL Calcium 7.4 L (8.4-10.2) mg/dL Adrenal panel 10/03/18 Range/Units 06:12 Sodium 141 (137-145) mmol/L Potassium 3.4 L (3.6-5.0) mmol/L Chloride 106.6 (98-107) mmol/L Carbon Dioxide 26 (22-30) mmol/L BUN 17 (9-20) mg/dL Creatinine 0.9 (0.8-1.5) mg/dL Glucose 98 (75-100) mg/dL Calcium 7.4 L (8.4-10.2) mg/dL Assessment and Plan - Patient Problems (1) Acute respiratory failure Current Visit: Yes Status: Acute Qualifiers: Respiratory failure complication: hypoxia Qualified Code(s): J96.01 - Acute respiratory failure with hypoxia Plan to address problem: Pt appears to be an appropriate candidate for tracheostomy and PEG tube placement. The parts consultant has given us clearance to go ahead and schedule the procedure. I spoke with the sister over the phone for consent. Procedure, risks, benefits were all explained. All questions were answered. She gave consent over the phone. Will work on scheduling. Please call with questions. time=45min
--- NOTE | 2018-10-03 18:23 | Progress Note ---
Assessment and Plan Cultures: 09/11/2018 blood culture: no growth 09/13/2018 serum cryptococcus ag neg 09/14/2018 CSF cryptococcus ag neg 09/14/2018 stool Nona 09/15/2018 stool +Giardia ag 09/19/2018 CSF cryptococcus ag neg 09/21/2018 tracheal aspirate culture: Nona albicans 09/23/2018 blood culture: No growth 09/23/2018 Fungal blood culture: no growth thus far A/P: 33 y/o male with no PMH; admitted on 09/11/2018 due to 4 days-AMS/behavioral changes, nausea, vomiting, diarrhea, weight loss and cough: 1) Low grade fevers: shock resolved. ?HIV related, v/s CMV related. Fevers have also resolved since initiation of HAART. Cultures have negative thus far. 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 WBC worse today, could be from CMV v/s ganciclovir. Called lab and spoke to cath lab nurse today, F/U CMV DNA PCR 09/26/2018 is 710K, 5.85 log. Generally, we do not a significant change in the log value in the first week. Transaminitis could be from CMV v/s shock liver, much improved. Repeat CMV PCR 10/03/2018 pending. 3) Acute respiratory failure: still on the vent, mainly due to mental status issues. PJP DFA negative. CXR stable without pneumonia. 4) Acute encephalopathy: possibly from neurosyphilis v/s CMV encephalitis v/s metabolic etiology. Of note, MRI did not show ventriculitis. CSF YAYO virus DNA PCR neg. Toxo IgG negative. Hypernatremia improved. 5) Neurosyphilis: CSF VDRL positive, will d/c Ceftriaxone and restart IV Penicillin. 6) Diarrhea: likely due to Giardiasis as Giardia antigen positive in stool, in immunocompromised patient. Completed several days of Flagyl, will stop. 7) Oral candidiasis: on fluconazole. 8) A.fib: cardiology following. On Amiodarone. 9) HIV/AIDS: newly diagnosed. Risk factor is MSM behavior. CD4=4. VL=50,700. 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 We started him on Tenofovir, Emtricitabine + Dolutegravir on 09/30/2018, watch closely for IRIS. 10) Neutropenia/thrombocytopenia: possibly from HIV/CMV myelosuppression +/- sepsis. Can also get worse from ganciclovir. r/o disseminated MAC, thus far cultures negative. 11) MAL: resolved. creatinine stable and improved. Recs: - discontinued Ceftriaxone and Flagyl - restarted IV Penicillin G 24 million units daily - F/U CMV DNA PCR 10/03/2018 - continue IV Ganciclovir 5 mg/kg q12 hrs - continue atovaquone and azithromycin prophylaxis - continue fluconazole as prophylaxis - continue HAART: Tenofovir, Emtricitabine + Dolutegravir watch closely for IRIS - monitor daily CBC, BMP - consider trial of neupogen, v/s hematology consult Will follow. Please call with questions. Maurizio Lopez MD [facility] C: [phone] O: [phone] F: [phone] Subjective Date of service: 10/03/18 Principal diagnosis: Severe sepsis; Ac hypoxemic Resp failure; [place]. Pneumonia; Ac encephalopathy Interval history: Remains afebrile. Still on the vent due to mental status issues. WBC remains low. Diarrhea improving. Objective - Exam Narrative Exam: Physical Exam: Constitutional: intubated, on the event, awake but doesn't obey commands Head, Ears, Nose: Normocephalic, atraumatic. Eyes: Conjunctivae/corneas clear. No icterus. No ptosis. Neck: Supple, no meningeal signs Oral: intubated. Cardiovascular: S1, S2 normal. Respiratory: Good air entry, clear to auscultation bilaterally GI: Soft, bowel sounds normal. No peritoneal signs, Rectal tube + Musculoskeletal: No pedal edema, no cyanosis. Skin: No rash or abscess Hem/Lymphatic: No palpable cervical or supraclavicular nodes. No lymphangitis Psych: no agitation Neurological: intubated, on the vent, awake, but doesn't follow commands - Constitutional Vitals: Vital Signs Temp Pulse Resp BP Pulse Ox 98.6 F 92 H 25 H 121/71 100 10/03/18 12:00 10/03/18 17:31 10/03/18 17:31 10/03/18 17:31 10/03/18 17:31 Temperature -Last 24 Hours Temperature 98.6 F Temperature 98.3 F Temperature 97.5 F Temperature 98.4 F Temperature 98.8 F - Labs CBC & Chem 7: 10/03/18 06:12 10/03/18 06:12 Labs: Abnormal lab results 10/03/18 10/03/18 10/03/18 Range/Units 06:12 06:12 11:45 WBC 0.8 L* (4.5-11.0) K/mm3 RBC 2.96 L (3.65-5.03) M/mm3 Hgb 8.5 L (11.8-15.2) gm/dl Hct 25.9 L (35.5-45.6) % RDW 15.4 H (13.2-15.2) % Heparin Anti-Xa Level 1.34 H (0.3-0.7) U.I./ml Potassium 3.4 L (3.6-5.0) mmol/L Calcium 7.4 L (8.4-10.2) mg/dL Magnesium (1.7-2.3) mg/dL 10/03/18 Range/Units 13:23 WBC (4.5-11.0) K/mm3 RBC (3.65-5.03) M/mm3 Hgb (11.8-15.2) gm/dl Hct (35.5-45.6) % RDW (13.2-15.2) % Heparin Anti-Xa Level (0.3-0.7) U.I./ml Potassium (3.6-5.0) mmol/L Calcium (8.4-10.2) mg/dL Magnesium 1.40 L (1.7-2.3) mg/dL - Imaging and cardiology Chest x-ray: report reviewed, image reviewed (ET tube present, no pneumonia)
[2018-10-03] MEDS ORDERED: PFIZERPEN IV SCH (20:00)
[2018-10-03] MEDS: TRANSDERM-SCOP TD SCH (20:53)
[2018-10-03] MEDS: PFIZERPEN 5 MIL.UNITS in NACL 0.9% 50 ML IV SCH ×2 (21:00→23:39)
[2018-10-04] MEDS: CYTOVENE 500 MG in NACL 0.9% 250ML 250 ML IV SCH ×2 (01:51→13:47)
[2018-10-04] MEDS: LOPRESSOR IV SCH ×4 (03:05→21:37)
[2018-10-04] MEDS: PFIZERPEN 5 MIL.UNITS in NACL 0.9% 50 ML IV SCH ×5 (04:52→21:39)
[2018-10-04] MEDS: PROVENTIL IH SCH ×4 (04:58→20:54)
[2018-10-04 05:20] LABS: Hematocrit 27.4 % (35.5-45.6); Mean Corpuscular HGB Conc 33 % (32-34); Mean Corpuscular Volume 88 fl (84-94); Platelet Count 167 K/mm3 (140-440); Red Blood Count 3.11 M/mm3 (3.65-5.03); Red Cell Distribution Width 15.4 % (13.2-15.2)
[2018-10-04 05:41] LABS: BUN/Creatinine Ratio 20; Blood Urea Nitrogen 14 mg/dL (9-20); Calcium 7.5 mg/dL (8.4-10.2); Hemolysis Index 4
[2018-10-04] MEDS: SYNTHROID PO SCH (05:47)
[2018-10-04] MEDS: ROBINUL PO SCH ×3 (05:47→21:36)
[2018-10-04] MEDS: HEPARIN/ 0.45% NACL-25,000 UNIT/500 ML 25,000 UNIT/500 ML BAG IV SCH (07:27)
--- NOTE | 2018-10-04 08:23 | Progress Note ---
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 He did not use condom consistently. - CD4=4 - VL=50,700 Elevated LFTs: resolved Neutropenia/thrombocytopenia Hypernatremia -VAP bundle addressed -Lung protective strategies -Antimicrobials per ID, HAART per ID -Increase free water flushes from 100ml to 250ml, follow up BMP - continue supplemental oxygen to keep sats > 90% - continue bronchodilators with pulmonary - continue daily SBT's, at this time mental status precludes liberation from MVS - monitor for drug-drug interactions - continue enteral nutrition as tolerated - PT/OT/ROM exercises as tolerated - mobility protocol for pressure ulcer prevention - continue GI & VTE prophylaxis -Re-culture if any fevers -Replete electrolytes as indicated -May benefit from Neupogen Evaluation for trach and PEG placement by general surgery - continue other care per attending / other consultants The high probability of a clinically significant, sudden or life threatening deterioration of the [cardiac, respiratory and neurologic] system(s) required my full and direct attention, intervention and personal management. The aggregate critical care time was [30] minutes. This time is in addition to time spent performing reported procedures but includes the following: [x] Data Review and interpretation [x] Patient assessment and monitoring of vital signs [x] Documentation Subjective Date of service: 10/04/18 Principal diagnosis: Severe sepsis; Ac hypoxemic Resp failure; [place]. Pneumonia; Ac encephalopathy Interval history: 33 y/o male with no PMH; admitted on 09/11/2018 due to 4 days-AMS/behavioral changes, nausea, voimiting, diarrhea, weight loss and cough: Patient is seen today for: Severe sepsis (present on admission with fever, tachycardia, hypotension and elevated lactate); Acute hypoxemic Respiratory failure; Bilateral pneumonia; Acute encephalopathy (Toxic / Metabolic); Atrial F ibrillation with RVR; HIV-AIDS Seen and examined at bedside; 24hour events reviewed; nursing and respiratory care staff consulted; no adverse overnight events reported to me; resting peac efully in bed; generalized edema with ongoing diarrhea. no further fevers overnight, Oral secretions, awake but not obeying commands. Remains on MVS, PSV 10/6 with tidal volumes of about 350ml, not in any distress Objective Vital Signs - 12hr 10/03/18 10/03/18 10/03/18 20:25 20:31 20:43 Temperature Pulse Rate 94 H 95 H Pulse Rate [ 92 H Anterior Bilateral Throughout] Pulse Rate [ From Monitor] Respiratory 25 H Rate Respiratory 20 Rate [Anterior Bilateral Throughout] Blood Pressure 127/72 130/74 O2 Sat by Pulse 100 Oximetry 10/03/18 10/03/18 10/03/18 21:00 21:31 22:00 Temperature Pulse Rate 87 83 82 Pulse Rate [ Anterior Bilateral Throughout] Pulse Rate [ From Monitor] Respiratory 20 15 18 Rate Respiratory Rate [Anterior Bilateral Throughout] Blood Pressure 127/77 126/74 123/73 O2 Sat by Pulse 100 100 100 Oximetry 10/03/18 10/03/18 10/03/18 22:31 23:00 23:03 Temperature Pulse Rate 81 86 84 Pulse Rate [ Anterior Bilateral Throughout] Pulse Rate [ From Monitor] Respiratory 18 21 22 Rate Respiratory Rate [Anterior Bilateral Throughout] Blood Pressure 125/72 132/78 132/78 O2 Sat by Pulse 100 100 100 Oximetry 10/03/18 10/03/18 10/03/18 23:13 23:31 23:50 Temperature 99.6 F Pulse Rate 81 84 Pulse Rate [ Anterior Bilateral Throughout] Pulse Rate [ From Monitor] Respiratory 22 24 Rate Respiratory Rate [Anterior Bilateral Throughout] Blood Pressure 129/73 O2 Sat by Pulse 100 100 Oximetry 10/04/18 10/04/18 10/04/18 00:00 00:31 01:01 Temperature Pulse Rate 84 80 79 Pulse Rate [ Anterior Bilateral Throughout] Pulse Rate [ 79 From Monitor] Respiratory 26 H 19 23 Rate Respiratory Rate [Anterior Bilateral Throughout] Blood Pressure 133/75 123/81 123/81 O2 Sat by Pulse 100 100 100 Oximetry 10/04/18 10/04/18 10/04/18 01:31 02:00 02:31 Temperature Pulse Rate 80 81 74 Pulse Rate [ Anterior Bilateral Throughout] Pulse Rate [ From Monitor] Respiratory 23 21 16 Rate Respiratory Rate [Anterior Bilateral Throughout] Blood Pressure 118/76 118/76 121/74 O2 Sat by Pulse 100 100 100 Oximetry 10/04/18 10/04/18 10/04/18 03:00 03:05 03:31 Temperature Pulse Rate 77 76 72 Pulse Rate [ Anterior Bilateral Throughout] Pulse Rate [ From Monitor] Respiratory 24 25 H Rate Respiratory Rate [Anterior Bilateral Throughout] Blood Pressure 123/77 123/77 122/78 O2 Sat by Pulse 100 100 Oximetry 10/04/18 10/04/18 10/04/18 04:00 04:10 04:39 Temperature 99.3 F Pulse Rate 74 76 Pulse Rate [ 70 75 Anterior Bilateral Throughout] Pulse Rate [ 91 H From Monitor] Respiratory 17 26 H Rate Respiratory 16 16 Rate [Anterior Bilateral Throughout] Blood Pressure 138/81 138/81 O2 Sat by Pulse 100 100 Oximetry 10/04/18 10/04/18 10/04/18 05:00 05:31 06:00 Temperature Pulse Rate 74 72 73 Pulse Rate [ Anterior Bilateral Throughout] Pulse Rate [ From Monitor] Respiratory 19 16 18 Rate Respiratory Rate [Anterior Bilateral Throughout] Blood Pressure 129/84 122/78 128/83 O2 Sat by Pulse 100 100 100 Oximetry 10/04/18 10/04/18 06:31 07:00 Temperature Pulse Rate 70 75 Pulse Rate [ Anterior Bilateral Throughout] Pulse Rate [ From Monitor] Respiratory 18 18 Rate Respiratory Rate [Anterior Bilateral Throughout] Blood Pressure 121/80 133/81 O2 Sat by Pulse 100 100 Oximetry Constitutional: lethargic, agitated, appears uncomfortable, other (orally intubated ETT at 23cm) Eyes: non-icteric ENT: oropharynx moist, other (ETT 25 cm NIKA) Neck: supple, no lymphadenopathy, other (no thyromegaly) Effort: mildly labored Ascultation: Bilateral: rales, rhonchi (scant) Percussion: Bilateral: not dull Cardiovascular: regular rate and rhythm, other (S1,S2, no murmurs, gallps or rubs) Gastrointestinal: normoactive bowel sounds, soft, non-tender, non-distended Integumentary: rash Extremities: no cyanosis, pulses normal, no ischemia or petechiae, edema Neurologic: non-focal exam (grossly), pupils equal and round, motor strength normal and (weak ) Psychiatric: other (unable to assess) CBC and BMP: 10/04/18 04:45 10/04/18 04:45 ABG, PT/INR, D-dimer: ABG POC ABG pH 7.387 (7.35-7.45) 10/01/18 13:06 POC ABG pCO2 44.1 (35-45) 10/01/18 13:06 POC ABG pO2 83 (80-105) 10/01/18 13:06 POC ABG HCO3 26.5 10/01/18 13:06 POC ABG Total CO2 28 10/01/18 13:06 POC ABG O2 Sat 96 10/01/18 13:06 PT/INR, D-dimer PT 19.9 Sec. (12.2-14.9) H 09/21/18 15:00 INR 1.65 (0.87-1.13) H 09/21/18 15:00 Abnormal lab findings: Abnormal Labs 09/11/18 09/11/18 09/11/18 18:00 18:00 18:00 WBC 1.9 L* RBC Hgb Hct RDW Plt Count 130 L Seg Neuts % (Manual) Lymphocytes % (Manual) Monocytes % (Manual) 16.0 H Eosinophils % (Manual) Basophils % (Manual) Nucleated RBC % Seg Neutrophils # Man 0.9 L Abs Lymphs (Manual) Lymphocytes # (Manual) 0.5 L PT INR APTT Heparin Anti-Xa Level POC ABG pH POC ABG pCO2 POC ABG pO2 Sodium 131 L Potassium Chloride Carbon Dioxide 17 L BUN 21 H Creatinine Glucose 126 H POC Glucose Lactic Acid 2.60 H* Calcium 8.1 L Phosphorus Magnesium AST 123 H ALT 115 H Total Creatine Kinase Total Protein Albumin 3.0 L Vitamin B12 TSH Free T4 CSF VDRL Lymph Enumerat CD4/CD8 Absolute CD3 Count % CD4 Cells Absolute CD4 Count % CD8 Cells Absolute CD19 Count T.pallidum Ab (FTA-ABS) HIV-1 RNA PCR copies/ml HIV-1 RNA (PCR) log Miscellaneous Test 09/11/18 09/13/18 09/13/18 19:01 04:28 07:31 WBC 2.0 L RBC Hgb Hct RDW Plt Count 116 L Seg Neuts % (Manual) Lymphocytes % (Manual) Monocytes % (Manual) 8.0 H Eosinophils % (Manual) Basophils % (Manual) Nucleated RBC % Seg Neutrophils # Man 1.0 L Abs Lymphs (Manual) Lymphocytes # (Manual) 0.5 L PT INR APTT Heparin Anti-Xa Level POC ABG pH POC ABG pCO2 POC ABG pO2 Sodium Potassium Chloride 110.4 H Carbon Dioxide 19 L BUN Creatinine Glucose POC Glucose Lactic Acid 3.70 H* Calcium 7.9 L Phosphorus Magnesium AST ALT Total Creatine Kinase Total Protein Albumin Vitamin B12 TSH Free T4 CSF VDRL Lymph Enumerat CD4/CD8 Absolute CD3 Count % CD4 Cells Absolute CD4 Count % CD8 Cells Absolute CD19 Count T.pallidum Ab (FTA-ABS) HIV-1 RNA PCR copies/ml HIV-1 RNA (PCR) log Miscellaneous Test 09/13/18 09/13/18 09/13/18 07:31 12:29 12:29 WBC RBC Hgb Hct RDW Plt Count Seg Neuts % (Manual) Lymphocytes % (Manual) Monocytes % (Manual) Eosinophils % (Manual) Basophils % (Manual) Nucleated RBC % Seg Neutrophils # Man Abs Lymphs (Manual) 309 L Lymphocytes # (Manual) PT INR APTT Heparin Anti-Xa Level POC ABG pH POC ABG pCO2 POC ABG pO2 Sodium Potassium Chloride Carbon Dioxide BUN Creatinine Glucose POC Glucose Lactic Acid Calcium Phosphorus Magnesium AST 70 H ALT 68 H Total Creatine Kinase Total Protein Albumin 2.5 L Vitamin B12 TSH Free T4 CSF VDRL Lymph Enumerat CD4/CD8 0.01 L Absolute CD3 Count 220 L % CD4 Cells 1 L Absolute CD4 Count 4 L % CD8 Cells 70 H Absolute CD19 Count 54 L T.pallidum Ab (FTA-ABS) HIV-1 RNA PCR copies/ml 51276 H HIV-1 RNA (PCR) log 4.71 H Miscellaneous Test 09/13/18 09/14/18 09/14/18 12:29 07:17 16:34 WBC RBC Hgb Hct RDW Plt Count Seg Neuts % (Manual) Lymphocytes % (Manual) Monocytes % (Manual) Eosinophils % (Manual) Basophils % (Manual) Nucleated RBC % Seg Neutrophils # Man Abs Lymphs (Manual) Lymphocytes # (Manual) PT INR APTT Heparin Anti-Xa Level POC ABG pH POC ABG pCO2 POC ABG pO2 Sodium Potassium 3.4 L Chloride Carbon Dioxide 18 L BUN Creatinine Glucose 104 H POC Glucose Lactic Acid Calcium 7.6 L Phosphorus Magnesium AST 49 H ALT Total Creatine Kinase Total Protein Albumin 2.5 L Vitamin B12 TSH Free T4 CSF VDRL Lymph Enumerat CD4/CD8 Absolute CD3 Count % CD4 Cells Absolute CD4 Count % CD8 Cells Absolute CD19 Count T.pallidum Ab (FTA-ABS) Reactive H HIV-1 RNA PCR copies/ml HIV-1 RNA (PCR) log Miscellaneous Test Flexitest 1 H 09/15/18 09/15/18 09/15/18 05:05 05:05 Unknown WBC 1.6 L* RBC Hgb 10.4 L Hct 31.1 L D RDW Plt Count 113 L Seg Neuts % (Manual) Lymphocytes % (Manual) Monocytes % (Manual) Eosinophils % (Manual) Basophils % (Manual) Nucleated RBC % Seg Neutrophils # Man Abs Lymphs (Manual) Lymphocytes # (Manual) PT INR APTT Heparin Anti-Xa Level POC ABG pH POC ABG pCO2 POC ABG pO2 Sodium Potassium Chloride 107.9 H Carbon Dioxide 18 L BUN 6 L Creatinine Glucose POC Glucose Lactic Acid Calcium 7.4 L Phosphorus Magnesium AST ALT Total Creatine Kinase Total Protein Albumin Vitamin B12 TSH Free T4 CSF VDRL Reactive 1:8 H Lymph Enumerat CD4/CD8 Absolute CD3 Count % CD4 Cells Absolute CD4 Count % CD8 Cells Absolute CD19 Count T.pallidum Ab (FTA-ABS) HIV-1 RNA PCR copies/ml HIV-1 RNA (PCR) log Miscellaneous Test 09/16/18 09/16/18 09/16/18 06:55 11:41 11:41 WBC 2.8 L RBC Hgb 10.9 L Hct 33.5 L RDW Plt Count 135 L Seg Neuts % (Manual) Lymphocytes % (Manual) Monocytes % (Manual) Eosinophils % (Manual) Basophils % (Manual) Nucleated RBC % Seg Neutrophils # Man Abs Lymphs (Manual) Lymphocytes # (Manual) PT INR APTT Heparin Anti-Xa Level POC ABG pH POC ABG pCO2 POC ABG pO2 Sodium Potassium Chloride Carbon Dioxide BUN Creatinine Glucose POC Glucose Lactic Acid Calcium Phosphorus Magnesium AST ALT Total Creatine Kinase Total Protein Albumin Vitamin B12 TSH 4.210 H Free T4 0.72 L CSF VDRL Lymph Enumerat CD4/CD8 Absolute CD3 Count % CD4 Cells Absolute CD4 Count % CD8 Cells Absolute CD19 Count T.pallidum Ab (FTA-ABS) HIV-1 RNA PCR copies/ml HIV-1 RNA (PCR) log Miscellaneous Test 09/16/18 09/16/18 09/17/18 11:41 15:43 05:13 WBC 2.0 L RBC Hgb 10.9 L Hct 32.7 L RDW Plt Count Seg Neuts % (Manual) Lymphocytes % (Manual) Monocytes % (Manual) Eosinophils % (Manual) Basophils % (Manual) Nucleated RBC % Seg Neutrophils # Man Abs Lymphs (Manual) Lymphocytes # (Manual) PT INR APTT Heparin Anti-Xa Level POC ABG pH POC ABG pCO2 29.3 L POC ABG pO2 70 L Sodium Potassium Chloride Carbon Dioxide BUN Creatinine Glucose POC Glucose Lactic Acid Calcium Phosphorus Magnesium AST ALT Total Creatine Kinase Total Protein Albumin Vitamin B12 934.5 H TSH Free T4 CSF VDRL Lymph Enumerat CD4/CD8 Absolute CD3 Count % CD4 Cells Absolute CD4 Count % CD8 Cells Absolute CD19 Count T.pallidum Ab (FTA-ABS) HIV-1 RNA PCR copies/ml HIV-1 RNA (PCR) log Miscellaneous Test 09/17/18 09/17/18 09/18/18 05:13 21:57 12:46 WBC RBC Hgb Hct RDW Plt Count Seg Neuts % (Manual) Lymphocytes % (Manual) Monocytes % (Manual) Eosinophils % (Manual) Basophils % (Manual) Nucleated RBC % Seg Neutrophils # Man Abs Lymphs (Manual) Lymphocytes # (Manual) PT INR APTT Heparin Anti-Xa Level POC ABG pH POC ABG pCO2 POC ABG pO2 Sodium Potassium Chloride 107.2 H Carbon Dioxide 21 L BUN 3 L Creatinine 0.7 L Glucose POC Glucose 108 H Lactic Acid Calcium 7.9 L Phosphorus Magnesium AST ALT Total Creatine Kinase Total Protein 6.1 L Albumin 2.6 L Vitamin B12 TSH Free T4 0.75 L CSF VDRL Lymph Enumerat CD4/CD8 Absolute CD3 Count % CD4 Cells Absolute CD4 Count % CD8 Cells Absolute CD19 Count T.pallidum Ab (FTA-ABS) HIV-1 RNA PCR copies/ml HIV-1 RNA (PCR) log Miscellaneous Test 09/18/18 09/19/18 09/19/18 12:46 04:57 04:57 WBC 2.1 L RBC Hgb 11.4 L Hct 34.2 L RDW Plt Count Seg Neuts % (Manual) Lymphocytes % (Manual) Monocytes % (Manual) Eosinophils % (Manual) Basophils % (Manual) Nucleated RBC % Seg Neutrophils # Man Abs Lymphs (Manual) Lymphocytes # (Manual) PT INR APTT Heparin Anti-Xa Level POC ABG pH POC ABG pCO2 POC ABG pO2 Sodium Potassium Chloride Carbon Dioxide 19 L BUN 6 L Creatinine Glucose POC Glucose Lactic Acid Calcium 7.9 L Phosphorus Magnesium AST ALT Total Creatine Kinase Total Protein Albumin Vitamin B12 TSH 5.190 H Free T4 CSF VDRL Lymph Enumerat CD4/CD8 Absolute CD3 Count % CD4 Cells Absolute CD4 Count % CD8 Cells Absolute CD19 Count T.pallidum Ab (FTA-ABS) HIV-1 RNA PCR copies/ml HIV-1 RNA (PCR) log Miscellaneous Test 09/19/18 09/19/18 09/20/18 15:00 15:00 05:33 WBC RBC Hgb Hct RDW Plt Count Seg Neuts % (Manual) Lymphocytes % (Manual) Monocytes % (Manual) Eosinophils % (Manual) Basophils % (Manual) Nucleated RBC % Seg Neutrophils # Man Abs Lymphs (Manual) Lymphocytes # (Manual) PT INR APTT Heparin Anti-Xa Level POC ABG pH POC ABG pCO2 POC ABG pO2 Sodium 136 L Potassium Chloride Carbon Dioxide 19 L BUN 7 L Creatinine Glucose POC Glucose Lactic Acid Calcium Phosphorus Magnesium AST ALT Total Creatine Kinase Total Protein Albumin Vitamin B12 TSH Free T4 CSF VDRL Reactive 1:4 H Lymph Enumerat CD4/CD8 Absolute CD3 Count % CD4 Cells Absolute CD4 Count % CD8 Cells Absolute CD19 Count T.pallidum Ab (FTA-ABS) HIV-1 RNA PCR copies/ml HIV-1 RNA (PCR) log Miscellaneous Test Flexitest 1 H 09/20/18 09/21/18 09/21/18 06:52 01:06 03:49 WBC 2.5 L RBC Hgb Hct RDW Plt Count Seg Neuts % (Manual) Lymphocytes % (Manual) Monocytes % (Manual) Eosinophils % (Manual) Basophils % (Manual) Nucleated RBC % Seg Neutrophils # Man Abs Lymphs (Manual) Lymphocytes # (Manual) PT INR APTT Heparin Anti-Xa Level POC ABG pH 7.159 L POC ABG pCO2 32.9 L 70.0 H POC ABG pO2 62 L 254 H Sodium Potassium Chloride Carbon Dioxide BUN Creatinine Glucose POC Glucose Lactic Acid Calcium Phosphorus Magnesium AST ALT Total Creatine Kinase Total Protein Albumin Vitamin B12 TSH Free T4 CSF VDRL Lymph Enumerat CD4/CD8 Absolute CD3 Count % CD4 Cells Absolute CD4 Count % CD8 Cells Absolute CD19 Count T.pallidum Ab (FTA-ABS) HIV-1 RNA PCR copies/ml HIV-1 RNA (PCR) log Miscellaneous Test 09/21/18 09/21/18 09/21/18 04:15 04:15 04:25 WBC 3.1 L RBC Hgb 11.6 L Hct RDW Plt Count Seg Neuts % (Manual) Lymphocytes % (Manual) Monocytes % (Manual) 12.0 H Eosinophils % (Manual) Basophils % (Manual) Nucleated RBC % Seg Neutrophils # Man 1.6 L Abs Lymphs (Manual) Lymphocytes # (Manual) 0.5 L PT INR APTT Heparin Anti-Xa Level POC ABG pH POC ABG pCO2 POC ABG pO2 Sodium Potassium 6.1 H* D Chloride Carbon Dioxide 19 L BUN Creatinine Glucose 108 H POC Glucose Lactic Acid Calcium Phosphorus Magnesium AST ALT Total Creatine Kinase 685 H Total Protein Albumin Vitamin B12 TSH Free T4 CSF VDRL Lymph Enumerat CD4/CD8 Absolute CD3 Count % CD4 Cells Absolute CD4 Count % CD8 Cells Absolute CD19 Count T.pallidum Ab (FTA-ABS) HIV-1 RNA PCR copies/ml HIV-1 RNA (PCR) log Miscellaneous Test 09/21/18 09/21/18 09/21/18 09:59 10:07 11:00 WBC RBC Hgb 11.7 L Hct RDW Plt Count Seg Neuts % (Manual) Lymphocytes % (Manual) Monocytes % (Manual) Eosinophils % (Manual) Basophils % (Manual) Nucleated RBC % Seg Neutrophils # Man Abs Lymphs (Manual) Lymphocytes # (Manual) PT INR APTT Heparin Anti-Xa Level POC ABG pH 7.301 L POC ABG pCO2 POC ABG pO2 109 H Sodium Potassium 6.5 H* Chloride Carbon Dioxide 18 L BUN Creatinine 2.1 H D Glucose POC Glucose Lactic Acid Calcium 8.1 L Phosphorus Magnesium AST 94 H ALT Total Creatine Kinase Total Protein Albumin 2.8 L Vitamin B12 TSH Free T4 CSF VDRL Lymph Enumerat CD4/CD8 Absolute CD3 Count % CD4 Cells Absolute CD4 Count % CD8 Cells Absolute CD19 Count T.pallidum Ab (FTA-ABS) HIV-1 RNA PCR copies/ml HIV-1 RNA (PCR) log Miscellaneous Test 09/21/18 09/21/18 09/21/18 15:00 21:54 21:54 WBC RBC Hgb Hct RDW Plt Count Seg Neuts % (Manual) Lymphocytes % (Manual) Monocytes % (Manual) Eosinophils % (Manual) Basophils % (Manual) Nucleated RBC % Seg Neutrophils # Man Abs Lymphs (Manual) Lymphocytes # (Manual) PT 19.9 H INR 1.65 H APTT 40.9 H Heparin Anti-Xa Level 0.98 H POC ABG pH POC ABG pCO2 POC ABG pO2 Sodium Potassium 5.2 H Chloride Carbon Dioxide BUN Creatinine Glucose POC Glucose Lactic Acid Calcium Phosphorus Magnesium AST ALT Total Creatine Kinase Total Protein Albumin Vitamin B12 TSH Free T4 CSF VDRL Lymph Enumerat CD4/CD8 Absolute CD3 Count % CD4 Cells Absolute CD4 Count % CD8 Cells Absolute CD19 Count T.pallidum Ab (FTA-ABS) HIV-1 RNA PCR copies/ml HIV-1 RNA (PCR) log Miscellaneous Test 09/21/18 09/22/18 09/22/18 22:57 03:01 05:27 WBC RBC Hgb Hct RDW Plt Count Seg Neuts % (Manual) Lymphocytes % (Manual) Monocytes % (Manual) Eosinophils % (Manual) Basophils % (Manual) Nucleated RBC % Seg Neutrophils # Man Abs Lymphs (Manual) Lymphocytes # (Manual) PT INR APTT Heparin Anti-Xa Level POC ABG pH POC ABG pCO2 32.7 L POC ABG pO2 Sodium Potassium Chloride Carbon Dioxide BUN Creatinine Glucose POC Glucose 124 H 128 H Lactic Acid Calcium Phosphorus Magnesium AST ALT Total Creatine Kinase Total Protein Albumin Vitamin B12 TSH Free T4 CSF VDRL Lymph Enumerat CD4/CD8 Absolute CD3 Count % CD4 Cells Absolute CD4 Count % CD8 Cells Absolute CD19 Count T.pallidum Ab (FTA-ABS) HIV-1 RNA PCR copies/ml HIV-1 RNA (PCR) log Miscellaneous Test 09/22/18 09/22/18 09/22/18 07:00 07:00 11:32 WBC 1.8 L* RBC 3.59 L Hgb 10.1 L Hct 30.8 L RDW Plt Count 126 L Seg Neuts % (Manual) Lymphocytes % (Manual) Monocytes % (Manual) Eosinophils % (Manual) Basophils % (Manual) Nucleated RBC % Seg Neutrophils # Man Abs Lymphs (Manual) Lymphocytes # (Manual) PT INR APTT Heparin Anti-Xa Level POC ABG pH POC ABG pCO2 POC ABG pO2 Sodium Potassium Chloride Carbon Dioxide BUN 27 H Creatinine 2.0 H Glucose 128 H POC Glucose 123 H Lactic Acid Calcium 6.9 L Phosphorus Magnesium AST ALT Total Creatine Kinase Total Protein Albumin Vitamin B12 TSH Free T4 CSF VDRL Lymph Enumerat CD4/CD8 Absolute CD3 Count % CD4 Cells Absolute CD4 Count % CD8 Cells Absolute CD19 Count T.pallidum Ab (FTA-ABS) HIV-1 RNA PCR copies/ml HIV-1 RNA (PCR) log Miscellaneous Test 09/22/18 09/22/18 09/22/18 15:52 18:18 23:52 WBC RBC Hgb Hct RDW Plt Count Seg Neuts % (Manual) Lymphocytes % (Manual) Monocytes % (Manual) Eosinophils % (Manual) Basophils % (Manual) Nucleated RBC % Seg Neutrophils # Man Abs Lymphs (Manual) Lymphocytes # (Manual) PT INR APTT Heparin Anti-Xa Level POC ABG pH POC ABG pCO2 48.7 H POC ABG pO2 Sodium Potassium Chloride Carbon Dioxide BUN Creatinine Glucose POC Glucose 110 H 124 H Lactic Acid Calcium Phosphorus Magnesium AST ALT Total Creatine Kinase Total Protein Albumin Vitamin B12 TSH Free T4 CSF VDRL Lymph Enumerat CD4/CD8 Absolute CD3 Count % CD4 Cells Absolute CD4 Count % CD8 Cells Absolute CD19 Count T.pallidum Ab (FTA-ABS) HIV-1 RNA PCR copies/ml HIV-1 RNA (PCR) log Miscellaneous Test 09/23/18 09/23/18 09/23/18 04:10 05:55 05:55 WBC RBC Hgb 10.0 L Hct 30.3 L RDW Plt Count 117 L Seg Neuts % (Manual) Lymphocytes % (Manual) Monocytes % (Manual) Eosinophils % (Manual) Basophils % (Manual) Nucleated RBC % Seg Neutrophils # Man Abs Lymphs (Manual) Lymphocytes # (Manual) PT INR APTT Heparin Anti-Xa Level 0.26 L POC ABG pH POC ABG pCO2 POC ABG pO2 144 H Sodium Potassium Chloride Carbon Dioxide BUN Creatinine Glucose POC Glucose Lactic Acid Calcium Phosphorus Magnesium AST ALT Total Creatine Kinase Total Protein Albumin Vitamin B12 TSH Free T4 CSF VDRL Lymph Enumerat CD4/CD8 Absolute CD3 Count % CD4 Cells Absolute CD4 Count % CD8 Cells Absolute CD19 Count T.pallidum Ab (FTA-ABS) HIV-1 RNA PCR copies/ml HIV-1 RNA (PCR) log Miscellaneous Test 09/23/18 09/23/18 09/23/18 08:10 08:10 23:57 WBC 1.3 L* RBC 3.53 L Hgb 9.9 L Hct 30.0 L RDW Plt Count 119 L Seg Neuts % (Manual) Lymphocytes % (Manual) Monocytes % (Manual) Eosinophils % (Manual) Basophils % (Manual) Nucleated RBC % Seg Neutrophils # Man Abs Lymphs (Manual) Lymphocytes # (Manual) PT INR APTT Heparin Anti-Xa Level POC ABG pH POC ABG pCO2 POC ABG pO2 Sodium Potassium Chloride Carbon Dioxide BUN Creatinine Glucose 122 H POC Glucose 115 H Lactic Acid Calcium 6.9 L Phosphorus Magnesium AST ALT Total Creatine Kinase Total Protein Albumin Vitamin B12 TSH Free T4 CSF VDRL Lymph Enumerat CD4/CD8 Absolute CD3 Count % CD4 Cells Absolute CD4 Count % CD8 Cells Absolute CD19 Count T.pallidum Ab (FTA-ABS) HIV-1 RNA PCR copies/ml HIV-1 RNA (PCR) log Miscellaneous Test 09/24/18 09/24/18 09/24/18 12:04 14:42 18:10 WBC RBC Hgb Hct RDW Plt Count Seg Neuts % (Manual) Lymphocytes % (Manual) Monocytes % (Manual) Eosinophils % (Manual) Basophils % (Manual) Nucleated RBC % Seg Neutrophils # Man Abs Lymphs (Manual) Lymphocytes # (Manual) PT INR APTT Heparin Anti-Xa Level 0.76 H POC ABG pH POC ABG pCO2 POC ABG pO2 Sodium Potassium Chloride Carbon Dioxide BUN Creatinine Glucose POC Glucose 111 H 138 H Lactic Acid Calcium Phosphorus Magnesium AST ALT Total Creatine Kinase Total Protein Albumin Vitamin B12 TSH Free T4 CSF VDRL Lymph Enumerat CD4/CD8 Absolute CD3 Count % CD4 Cells Absolute CD4 Count % CD8 Cells Absolute CD19 Count T.pallidum Ab (FTA-ABS) HIV-1 RNA PCR copies/ml HIV-1 RNA (PCR) log Miscellaneous Test 09/25/18 09/25/18 09/25/18 03:45 04:24 14:20 WBC RBC Hgb 9.7 L Hct 29.4 L RDW Plt Count 104 L Seg Neuts % (Manual) Lymphocytes % (Manual) Monocytes % (Manual) Eosinophils % (Manual) Basophils % (Manual) Nucleated RBC % Seg Neutrophils # Man Abs Lymphs (Manual) Lymphocytes # (Manual) PT INR APTT Heparin Anti-Xa Level POC ABG pH 7.460 H POC ABG pCO2 32.9 L POC ABG pO2 Sodium Potassium 3.5 L Chloride 110.3 H Carbon Dioxide BUN Creatinine Glucose 105 H POC Glucose Lactic Acid Calcium 6.7 L Phosphorus Magnesium AST 633 H ALT 481 H Total Creatine Kinase Total Protein 4.8 L D Albumin 1.9 L Vitamin B12 TSH Free T4 CSF VDRL Lymph Enumerat CD4/CD8 Absolute CD3 Count % CD4 Cells Absolute CD4 Count % CD8 Cells Absolute CD19 Count T.pallidum Ab (FTA-ABS) HIV-1 RNA PCR copies/ml HIV-1 RNA (PCR) log Miscellaneous Test 09/26/18 09/26/18 09/26/18 06:15 06:15 10:43 WBC 1.2 L* RBC 3.32 L Hgb 9.2 L Hct 28.6 L RDW Plt Count 97 L Seg Neuts % (Manual) 24.0 L Lymphocytes % (Manual) 43.0 H Monocytes % (Manual) 19.0 H Eosinophils % (Manual) 8.0 H Basophils % (Manual) 2.0 H Nucleated RBC % 3.0 H Seg Neutrophils # Man 0.0 L Abs Lymphs (Manual) Lymphocytes # (Manual) 0.0 L PT INR APTT Heparin Anti-Xa Level POC ABG pH 7.459 H POC ABG pCO2 POC ABG pO2 141 H Sodium Potassium Chloride 112.8 H Carbon Dioxide BUN Creatinine Glucose 110 H POC Glucose Lactic Acid Calcium 7.0 L Phosphorus 0.90 L* Magnesium AST 362 H ALT 360 H Total Creatine Kinase Total Protein 4.9 L Albumin 1.5 L Vitamin B12 TSH Free T4 CSF VDRL Lymph Enumerat CD4/CD8 Absolute CD3 Count % CD4 Cells Absolute CD4 Count % CD8 Cells Absolute CD19 Count T.pallidum Ab (FTA-ABS) HIV-1 RNA PCR copies/ml HIV-1 RNA (PCR) log Miscellaneous Test 09/26/18 09/27/18 09/28/18 13:56 04:11 07:49 WBC RBC Hgb 9.1 L Hct 29.1 L RDW Plt Count 96 L Seg Neuts % (Manual) Lymphocytes % (Manual) Monocytes % (Manual) Eosinophils % (Manual) Basophils % (Manual) Nucleated RBC % Seg Neutrophils # Man Abs Lymphs (Manual) Lymphocytes # (Manual) PT INR APTT Heparin Anti-Xa Level POC ABG pH POC ABG pCO2 POC ABG pO2 Sodium 146 H Potassium Chloride 111.6 H Carbon Dioxide BUN Creatinine Glucose POC Glucose 135 H Lactic Acid Calcium 7.4 L Phosphorus Magnesium AST ALT Total Creatine Kinase Total Protein Albumin Vitamin B12 TSH Free T4 CSF VDRL Lymph Enumerat CD4/CD8 Absolute CD3 Count % CD4 Cells Absolute CD4 Count % CD8 Cells Absolute CD19 Count T.pallidum Ab (FTA-ABS) HIV-1 RNA PCR copies/ml HIV-1 RNA (PCR) log Miscellaneous Test 09/28/18 09/29/18 09/29/18 10:43 05:00 05:00 WBC 1.2 L* RBC 3.13 L Hgb 8.6 L Hct 27.3 L RDW Plt Count 137 L Seg Neuts % (Manual) Lymphocytes % (Manual) Monocytes % (Manual) 16.0 H Eosinophils % (Manual) Basophils % (Manual) Nucleated RBC % 4.0 H Seg Neutrophils # Man 0.5 L Abs Lymphs (Manual) Lymphocytes # (Manual) 0.3 L PT INR APTT Heparin Anti-Xa Level POC ABG pH 7.300 L POC ABG pCO2 53.9 H POC ABG pO2 Sodium 147 H Potassium 3.4 L Chloride 114.5 H Carbon Dioxide BUN Creatinine Glucose POC Glucose Lactic Acid Calcium 7.7 L Phosphorus Magnesium AST 69 H ALT 110 H Total Creatine Kinase Total Protein 5.2 L Albumin 1.9 L Vitamin B12 TSH Free T4 CSF VDRL Lymph Enumerat CD4/CD8 Absolute CD3 Count % CD4 Cells Absolute CD4 Count % CD8 Cells Absolute CD19 Count T.pallidum Ab (FTA-ABS) HIV-1 RNA PCR copies/ml HIV-1 RNA (PCR) log Miscellaneous Test 09/29/18 09/29/18 09/30/18 06:07 13:22 05:19 WBC 0.9 L* RBC 3.03 L Hgb 8.6 L Hct 25.9 L RDW Plt Count Seg Neuts % (Manual) Lymphocytes % (Manual) Monocytes % (Manual) Eosinophils % (Manual) Basophils % (Manual) Nucleated RBC % Seg Neutrophils # Man Abs Lymphs (Manual) Lymphocytes # (Manual) PT INR APTT Heparin Anti-Xa Level POC ABG pH POC ABG pCO2 46.9 H POC ABG pO2 Sodium Potassium Chloride Carbon Dioxide BUN Creatinine Glucose POC Glucose 109 H Lactic Acid Calcium Phosphorus Magnesium AST ALT Total Creatine Kinase Total Protein Albumin Vitamin B12 TSH Free T4 CSF VDRL Lymph Enumerat CD4/CD8 Absolute CD3 Count % CD4 Cells Absolute CD4 Count % CD8 Cells Absolute CD19 Count T.pallidum Ab (FTA-ABS) HIV-1 RNA PCR copies/ml HIV-1 RNA (PCR) log Miscellaneous Test 09/30/18 09/30/18 09/30/18 05:19 11:14 23:28 WBC RBC Hgb Hct RDW Plt Count Seg Neuts % (Manual) Lymphocytes % (Manual) Monocytes % (Manual) Eosinophils % (Manual) Basophils % (Manual) Nucleated RBC % Seg Neutrophils # Man Abs Lymphs (Manual) Lymphocytes # (Manual) PT INR APTT Heparin Anti-Xa Level 0.72 H POC ABG pH POC ABG pCO2 46.6 H POC ABG pO2 Sodium 150 H Potassium Chloride 115.2 H Carbon Dioxide BUN Creatinine Glucose POC Glucose Lactic Acid Calcium 7.9 L Phosphorus Magnesium AST ALT Total Creatine Kinase Total Protein Albumin Vitamin B12 TSH Free T4 CSF VDRL Lymph Enumerat CD4/CD8 Absolute CD3 Count % CD4 Cells Absolute CD4 Count % CD8 Cells Absolute CD19 Count T.pallidum Ab (FTA-ABS) HIV-1 RNA PCR copies/ml HIV-1 RNA (PCR) log Miscellaneous Test 10/01/18 10/01/18 10/02/18 04:55 04:55 07:15 WBC 0.9 L* 0.7 L* RBC 3.01 L 2.92 L Hgb 8.4 L 8.4 L Hct 26.0 L 24.9 L RDW Plt Count Seg Neuts % (Manual) Lymphocytes % (Manual) Monocytes % (Manual) Eosinophils % (Manual) Basophils % (Manual) Nucleated RBC % Seg Neutrophils # Man Abs Lymphs (Manual) Lymphocytes # (Manual) PT INR APTT Heparin Anti-Xa Level POC ABG pH POC ABG pCO2 POC ABG pO2 Sodium 147 H Potassium 3.4 L Chloride 113.1 H Carbon Dioxide BUN 22 H Creatinine Glucose POC Glucose Lactic Acid Calcium 7.3 L Phosphorus Magnesium AST ALT Total Creatine Kinase Total Protein Albumin Vitamin B12 TSH Free T4 CSF VDRL Lymph Enumerat CD4/CD8 Absolute CD3 Count % CD4 Cells Absolute CD4 Count % CD8 Cells Absolute CD19 Count T.pallidum Ab (FTA-ABS) HIV-1 RNA PCR copies/ml HIV-1 RNA (PCR) log Miscellaneous Test 10/02/18 10/03/18 10/03/18 07:15 06:12 06:12 WBC 0.8 L* RBC 2.96 L Hgb 8.5 L Hct 25.9 L RDW 15.4 H Plt Count Seg Neuts % (Manual) Lymphocytes % (Manual) Monocytes % (Manual) Eosinophils % (Manual) Basophils % (Manual) Nucleated RBC % Seg Neutrophils # Man Abs Lymphs (Manual) Lymphocytes # (Manual) PT INR APTT Heparin Anti-Xa Level POC ABG pH POC ABG pCO2 POC ABG pO2 Sodium Potassium 3.4 L 3.4 L Chloride 108.3 H Carbon Dioxide BUN Creatinine Glucose POC Glucose Lactic Acid Calcium 7.6 L 7.4 L Phosphorus Magnesium AST ALT Total Creatine Kinase Total Protein Albumin Vitamin B12 TSH Free T4 CSF VDRL Lymph Enumerat CD4/CD8 Absolute CD3 Count % CD4 Cells Absolute CD4 Count % CD8 Cells Absolute CD19 Count T.pallidum Ab (FTA-ABS) HIV-1 RNA PCR copies/ml HIV-1 RNA (PCR) log Miscellaneous Test 10/03/18 10/03/18 10/04/18 11:45 13:23 01:40 WBC RBC Hgb Hct RDW Plt Count Seg Neuts % (Manual) Lymphocytes % (Manual) Monocytes % (Manual) Eosinophils % (Manual) Basophils % (Manual) Nucleated RBC % Seg Neutrophils # Man Abs Lymphs (Manual) Lymphocytes # (Manual) PT INR APTT Heparin Anti-Xa Level 1.34 H 0.26 L POC ABG pH POC ABG pCO2 POC ABG pO2 Sodium Potassium Chloride Carbon Dioxide BUN Creatinine Glucose POC Glucose Lactic Acid Calcium Phosphorus Magnesium 1.40 L AST ALT Total Creatine Kinase Total Protein Albumin Vitamin B12 TSH Free T4 CSF VDRL Lymph Enumerat CD4/CD8 Absolute CD3 Count % CD4 Cells Absolute CD4 Count % CD8 Cells Absolute CD19 Count T.pallidum Ab (FTA-ABS) HIV-1 RNA PCR copies/ml HIV-1 RNA (PCR) log Miscellaneous Test 10/04/18 10/04/18 04:45 04:45 WBC 0.8 L* RBC 3.11 L Hgb 9.0 L Hct 27.4 L RDW 15.4 H Plt Count Seg Neuts % (Manual) Lymphocytes % (Manual) Monocytes % (Manual) Eosinophils % (Manual) Basophils % (Manual) Nucleated RBC % Seg Neutrophils # Man Abs Lymphs (Manual) Lymphocytes # (Manual) PT INR APTT Heparin Anti-Xa Level POC ABG pH POC ABG pCO2 POC ABG pO2 Sodium Potassium Chloride Carbon Dioxide BUN Creatinine 0.7 L Glucose POC Glucose Lactic Acid Calcium 7.5 L Phosphorus Magnesium AST ALT Total Creatine Kinase Total Protein Albumin Vitamin B12 TSH Free T4 CSF VDRL Lymph Enumerat CD4/CD8 Absolute CD3 Count % CD4 Cells Absolute CD4 Count % CD8 Cells Absolute CD19 Count T.pallidum Ab (FTA-ABS) HIV-1 RNA PCR copies/ml HIV-1 RNA (PCR) log Miscellaneous Test Allied health notes reviewed: nursing
[2018-10-04] MEDS ORDERED: SODIUM BICARBONATE FEEDTUBE PRN (08:25)
[2018-10-04] MEDS ORDERED: PANCREAZE DR 10,500 UNIT FEEDTUBE PRN (08:25)
[2018-10-04] MEDS ORDERED: SIMPLE SYRUP FEEDTUBE PRN ×2 (08:25)
[2018-10-04] MEDS: TIVICAY PO SCH (09:40)
[2018-10-04] MEDS: PEPCID PO SCH ×2 (09:40→21:36)
[2018-10-04] MEDS: CORDARONE PO SCH ×2 (09:40→21:37)
[2018-10-04] MEDS: VIREAD PO SCH (09:40)
[2018-10-04] MEDS: MEPRON PO SCH ×2 (09:40→21:36)
[2018-10-04] MEDS: EMTRIVA PO SCH (09:41)
[2018-10-04] MEDS: DIFLUCAN 200 ML IV SCH (09:41)
[2018-10-04] MEDS: SODIUM CHLORIDE FLUSH SYRINGE 10 ML IV SCH ×2 (09:44→21:38)
--- NOTE | 2018-10-04 13:03 | Progress Note ---
Assessment and Plan Assessment and plan: Severe Sepsis. Etiology secondary to bacterial pneumonia +/- gastroenteritis with newly diagnosed with HIV. Continue IV antibiotics per ID. Acute hypoxemic respiratory failure. Etiology secondary to sepsis/multifocal pneumonia with probable concomitant aspiration. Intubated, on vent., Unable to wean off vent Pulm following Bilateral pneumonia. Etiology likely secondary to PJP Pneumonia +/- aspiration. Chest x-ray, CT scan reveals multifocal pneumonia. Tracheal aspirate with Nona albicans. Toxic metabolic encephalopathy. 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 Of note, MRI did not show ventriculitis. Blood CMV DNA PCR = 1,058,978. CSF YAYO virus DNA PCR neg. Gastroenteritis. A. fib with RVR. Converted to NSR. cont Amiodarone Cont Heparin drip. 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 Diarrhea. Resolved, etiology likely secondary to Giardia. Giardia antigen positive in stool. Oral candidiasis. Continue fluconazole. HIV/AIDS. New Diagnosis. Started on HAART on 09/30 Neutropenia/thrombocytopenia. Likely from HIV myelosuppression, sepsis Hypernatremia, resolved after started D5W Will dc D5w Recheck BMP in am Prognosis is guarded. For Trach and PEG. Surg consulted The high probability of a clinically significant, sudden or life threatening deterioration of the [neurological, respiratory and cardiac] system(s) required my full and direct attention, intervention and personal management. The aggregate critical care time was [32] minutes. This time is in addition to time spent performing reported procedures but includes the following: [x] Data Review and interpretation [x] Patient assessment and monitoring of vital signs [x] Documentation [x] Medication orders and management History Interval history: Patient is 33 yo initially presented with diarrhea, found to have pneumonia, sepsis, HIV/AIDS(new diagnosis) with CD4 count of 4. He was started on abx for PJP. His mental status has worsened with confusion, lethargy. LP done . He was diagnosed with neurosyphilis. Started on Penicillin. Closest family is sister in [place], and dr. Baltazar spoke to her several times about diagnosis but did not tell her about HIV/AIDS because of patient confidentiality. The patient de compensated on 09/20/18 with acute hypoxemic respiratory failure and worsening toxic metabolic encephalopathy requiring transfer to ICU and intubation. He now remains on mechanical ventilation. The patient was also noted to develop SVT requiring amiodarone drip as well as heparin drip. Hospitalist Physical - Constitutional Vitals: Temp Pulse Resp BP Pulse Ox 98.7 F 78 21 121/78 100 10/04/18 08:00 10/04/18 11:32 10/04/18 11:32 10/04/18 11:32 10/04/18 11:32 General appearance: Present: other (orally intubated) - EENT Eyes: Present: PERRL, EOM intact ENT: hearing intact, clear oral mucosa, dentition normal - Neck Neck: Present: supple, normal ROM - Respiratory Respiratory effort: normal Respiratory: bilateral: diminished, rhonchi - Cardiovascular Rhythm: regular Heart Sounds: Present: S1 & S2. Absent: gallop, rub - Extremities Extremities: no ischemia, No edema, Full ROM - Abdominal General gastrointestinal: soft, non-tender, non-distended, normal bowel sounds - Integumentary Integumentary: Present: clear, warm, dry - Neurologic Neurologic: CNII-XII intact, moves all extremities Results - Labs CBC & Chem 7: 10/04/18 04:45 10/04/18 04:45 Labs: Laboratory Last Values WBC 0.8 K/mm3 (4.5-11.0) L* 10/04/18 04:45 RBC 3.11 M/mm3 (3.65-5.03) L 10/04/18 04:45 Hgb 9.0 gm/dl (11.8-15.2) L 10/04/18 04:45 Hct 27.4 % (35.5-45.6) L 10/04/18 04:45 MCV 88 fl (84-94) 10/04/18 04:45 MCH 29 pg (28-32) 10/04/18 04:45 MCHC 33 % (32-34) 10/04/18 04:45 RDW 15.4 % (13.2-15.2) H 10/04/18 04:45 Plt Count 167 K/mm3 (140-440) 10/04/18 04:45 [place] % (Auto) Talent Acquisition Manager 09/29/18 05:00 Baso % (Auto) Talent Acquisition Manager 09/29/18 05:00 Add Manual Diff Complete 09/29/18 05:00 Total Counted 25 09/29/18 05:00 Seg Neutrophils % Talent Acquisition Manager 09/29/18 05:00 Seg Neuts % (Manual) 40.0 % (40.0-70.0) 09/29/18 05:00 Band Neutrophils % 4.0 % 09/29/18 05:00 Lymphocytes % (Manual) 28.0 % (13.4-35.0) 09/29/18 05:00 Reactive Lymphs % (Man) 0 % 09/29/18 05:00 Monocytes % (Manual) 16.0 % (0.0-7.3) H 09/29/18 05:00 Eosinophils % (Manual) 0 % (0.0-4.3) 09/29/18 05:00 Basophils % (Manual) 0 % (0.0-1.8) 09/29/18 05:00 Metamyelocytes % 8.0 % 09/29/18 05:00 Myelocytes % 0 % 09/29/18 05:00 Promyelocytes % 4.0 % 09/29/18 05:00 Blast Cells % 0 % 09/29/18 05:00 Nucleated RBC % 4.0 % (0.0-0.9) H 09/29/18 05:00 Seg Neutrophils # Man 0.5 K/mm3 (1.8-7.7) L 09/29/18 05:00 Band Neutrophils # 0.0 K/mm3 09/29/18 05:00 Abs Lymphs (Manual) 309 cells/uL (850-3900) L 09/13/18 12:29 Lymphocytes # (Manual) 0.3 K/mm3 (1.2-5.4) L 09/29/18 05:00 Abs React Lymphs (Man) 0.0 K/mm3 09/29/18 05:00 Monocytes # (Manual) 0.2 K/mm3 (0.0-0.8) 09/29/18 05:00 Eosinophils # (Manual) 0.0 K/mm3 (0.0-0.4) 09/29/18 05:00 Basophils # (Manual) 0.0 K/mm3 (0.0-0.1) 09/29/18 05:00 Metamyelocytes # 0.1 K/mm3 09/29/18 05:00 Myelocytes # 0.0 K/mm3 09/29/18 05:00 Promyelocytes # 0.0 K/mm3 09/29/18 05:00 Blast Cells # 0.0 K/mm3 09/29/18 05:00 WBC Morphology Not Reportable 09/29/18 05:00 Hypersegmented Neuts Not Reportable 09/29/18 05:00 Hyposegmented Neuts Not Reportable 09/29/18 05:00 Hypogranular Neuts Not Reportable 09/29/18 05:00 Smudge Cells Not Reportable 09/29/18 05:00 Toxic Granulation Not Reportable 09/29/18 05:00 Toxic Vacuolation Not Reportable 09/29/18 05:00 Dohle Bodies Not Reportable 09/29/18 05:00 Pelger-Huet Anomaly Not Reportable 09/29/18 05:00 Giovanna Rods Not Reportable 09/29/18 05:00 Platelet Estimate Appears normal 09/29/18 05:00 Clumped Platelets Not Reportable 09/29/18 05:00 Plt Clumps, EDTA Not Reportable 09/29/18 05:00 Large Platelets Few 09/29/18 05:00 Giant Platelets Not Reportable 09/29/18 05:00 Platelet Satelliting Not Reportable 09/29/18 05:00 Plt Morphology Comment Not Reportable 09/29/18 05:00 RBC Morphology Not Reportable 09/29/18 05:00 Dimorphic RBCs Not Reportable 09/29/18 05:00 Polychromasia Not Reportable 09/29/18 05:00 Hypochromasia 1+ 09/29/18 05:00 Poikilocytosis Not Reportable 09/29/18 05:00 Anisocytosis 1+ 09/29/18 05:00 Microcytosis Not Reportable 09/29/18 05:00 Macrocytosis Rare 09/29/18 05:00 Spherocytes Not Reportable 09/29/18 05:00 Pappenheimer Bodies Not Reportable 09/29/18 05:00 Sickle Cells Not Reportable 09/29/18 05:00 Target Cells Few 09/29/18 05:00 Tear Drop Cells Not Reportable 09/29/18 05:00 Ovalocytes 2+ 09/29/18 05:00 Stomatocytes 1+ 09/29/18 05:00 Helmet Cells Not Reportable 09/29/18 05:00 [place] Bodies Not Reportable 09/29/18 05:00 [place] Rings Not Reportable 09/29/18 05:00 [place] Cells Not Reportable 09/29/18 05:00 Bite Cells Not Reportable 09/29/18 05:00 Crenated Cell Not Reportable 09/29/18 05:00 Elliptocytes Few 09/29/18 05:00 Acanthocytes (Spur) Not Reportable 09/29/18 05:00 Rouleaux Not Reportable 09/29/18 05:00 Hemoglobin C Crystals Not Reportable 09/29/18 05:00 Schistocytes Not Reportable 09/29/18 05:00 Malaria parasites Not Reportable 09/29/18 05:00 Kieran Bodies Not Reportable 09/29/18 05:00 Hem Pathologist Commnt No 09/29/18 05:00 PT 19.9 Sec. (12.2-14.9) H 09/21/18 15:00 INR 1.65 (0.87-1.13) H 09/21/18 15:00 APTT 40.9 Sec. (24.2-36.6) H 09/21/18 15:00 Heparin Anti-Xa Level 0.37 U.I./ml (0.3-0.7) 10/04/18 Unknown POC ABG pH 7.387 (7.35-7.45) 10/01/18 13:06 POC ABG pCO2 44.1 (35-45) 10/01/18 13:06 POC ABG pO2 83 (80-105) 10/01/18 13:06 POC ABG HCO3 26.5 10/01/18 13:06 POC ABG Total CO2 28 10/01/18 13:06 POC ABG O2 Sat 96 10/01/18 13:06 POC ABG Base Excess 2 10/01/18 13:06 FiO2 25 % 10/01/18 13:06 Sodium 141 mmol/L (137-145) 10/04/18 04:45 Potassium 3.8 mmol/L (3.6-5.0) 10/04/18 04:45 Chloride 106.5 mmol/L (98-107) 10/04/18 04:45 Carbon Dioxide 26 mmol/L (22-30) 10/04/18 04:45 Anion Gap 12 mmol/L 10/04/18 04:45 BUN 14 mg/dL (9-20) 10/04/18 04:45 Creatinine 0.7 mg/dL (0.8-1.5) L 10/04/18 04:45 Estimated GFR > 60 ml/min 10/04/18 04:45 BUN/Creatinine Ratio 20 % 10/04/18 04:45 Glucose 89 mg/dL (75-100) 10/04/18 04:45 POC Glucose 78 (70-105) 10/04/18 12:31 Lactic Acid 0.90 mmol/L (0.7-2.0) 09/11/18 20:17 Calcium 7.5 mg/dL (8.4-10.2) L 10/04/18 04:45 Phosphorus 3.10 mg/dL (2.5-4.5) D 09/27/18 04:11 Magnesium 1.40 mg/dL (1.7-2.3) L 10/03/18 13:23 Total Bilirubin < 0.20 mg/dL (0.1-1.2) 09/29/18 05:00 Direct Bilirubin < 0.2 mg/dL (0-0.2) 09/13/18 07:31 AST 69 units/L (5-40) H 09/29/18 05:00 ALT 110 units/L (7-56) H 09/29/18 05:00 Alkaline Phosphatase 60 units/L (35-129) 09/29/18 05:00 Ammonia 27.0 umol/L (25-60) 10/03/18 13:23 Total Creatine Kinase 685 units/L (55-170) H 09/21/18 04:25 CK-MB (CK-2) 3.5 ng/mL (0.0-4.0) 09/21/18 04:25 CK-MB (CK-2) Rel Index 0.5 (0-4) 09/21/18 04:25 NT-Pro-B Natriuret Pep 145.9 pg/mL (0-450) 09/18/18 16:07 Total Protein 5.2 g/dL (6.3-8.2) L 09/29/18 05:00 Albumin 1.9 g/dL (3.9-5) L 09/29/18 05:00 Albumin/Globulin Ratio 0.6 % 09/29/18 05:00 Vitamin B12 934.5 pg/mL (211-911) H 09/16/18 11:41 TSH 5.190 mlU/mL (0.270-4.200) H 09/18/18 12:46 Free T4 0.75 ng/dL (0.76-1.46) L 09/18/18 12:46 Urine Color [place] (Yellow) 09/11/18 Unknown Urine Turbidity Clear (Clear) 09/11/18 Unknown Urine pH 5.0 (5.0-7.0) 09/11/18 Unknown Ur Specific [place] 1.016 (1.003-1.030) 09/11/18 Unknown Urine Protein <15 mg/dl mg/dL (Negative) 09/11/18 Unknown Urine Glucose (UA) Neg mg/dL (Negative) 09/11/18 Unknown Urine Ketones Neg mg/dL (Negative) 09/11/18 Unknown Urine Blood Sm (Negative) 09/11/18 Unknown Urine Nitrite Neg (Negative) 09/11/18 Unknown Urine Bilirubin Neg (Negative) 09/11/18 Unknown Urine Urobilinogen < 2.0 mg/dL (<2.0) 09/11/18 Unknown Ur Leukocyte Esterase Neg (Negative) 09/11/18 Unknown Urine WBC (Auto) 1.0 /HPF (0.0-6.0) 09/11/18 Unknown Urine RBC (Auto) 3.0 /HPF (0.0-6.0) 09/11/18 Unknown Urine Mucus Few /HPF 09/11/18 Unknown CSF Appearance Clear 09/19/18 15:00 CSF Color Colorless 09/19/18 15:00 CSF WBC 4 /mm3 (1-10) 09/19/18 15:00 CSF RBC 583 /mm3 (0-0) 09/19/18 15:00 CSF Seg Neutrophils 21.4 % (0-6) 09/19/18 15:00 CSF Lymphocytes % 71.4 % (40-80) 09/19/18 15:00 CSF Reactive Lymphs 0 % 09/19/18 15:00 CSF Monocytes % 7.1 % (15-45) 09/19/18 15:00 CSF Eosinophils % 0 % 09/19/18 15:00 CSF Basophils 0 % 09/19/18 15:00 CSF Pathologist Review C 09/19/18 15:00 CSF Glucose 32 mg/dL 09/19/18 15:00 CSF Total Protein 123 mg/dL 09/19/18 15:00 CSF VDRL Reactive 1:4 (Nonreactive) H 09/19/18 15:00 Vancomycin Trough 14.3 ug/mL (5.0-20.0) 09/25/18 14:45 Urine Opiates Screen Presumptive negative 09/17/18 15:52 Urine Methadone Screen Presumptive negative 09/17/18 15:52 Ur Barbiturates Screen Presumptive negative 09/17/18 15:52 Ur Phencyclidine Scrn Presumptive negative 09/17/18 15:52 Ur Amphetamines Screen Presumptive negative 09/17/18 15:52 U Benzodiazepines Scrn Presumptive negative 09/17/18 15:52 Urine Cocaine Screen Presumptive negative 09/17/18 15:52 U Marijuana (THC) Screen Presumptive negative 09/17/18 15:52 Drugs of Abuse Note Disclamer 09/17/18 15:52 Lymph Enumerat CD4/CD8 0.01 (0.86-5.00) L 09/13/18 12:29 % CD3 Cells 71 % (57-85) 09/13/18 12:29 Absolute CD3 Count 220 cells/uL (840-3060) L 09/13/18 12:29 % CD4 Cells 1 % (30-61) L 09/13/18 12:29 Absolute CD4 Count 4 cells/uL (490-1740) L 09/13/18 12:29 % CD8 Cells 70 % (12-42) H 09/13/18 12:29 Absolute CD8 Count 216 cells/uL (180-1170) 09/13/18 12:29 % CD19 Cells 17 % (6-29) 09/13/18 12:29 Absolute CD19 Count 54 cells/uL (110-660) L 09/13/18 12:29 RPR Titer 1:16 09/13/18 12:29 RPR Reactive (Nonreactive) 09/13/18 12:29 T.pallidum Ab (FTA-ABS) Reactive (Nonreactive) H 09/14/18 16:34 C. 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 See scanned result 09/26/18 06:15 Hepatitis A IgM Ab Non-reactive (NonReactive) 09/13/18 12:29 Hep Bs Antigen Non-reactive (Negative) 09/13/18 12:29 Hep B Core IgM Ab Non-reactive (NonReactive) 09/13/18 12:29 Hepatitis C Antibody Non-reactive (NonReactive) 09/13/18 12:29 HIV-1 Antibody See scanned result 09/11/18 19:14 HIV-1 RNA PCR copies/ml 69824 Copies/mL H 09/13/18 12:29 HIV-1 RNA (PCR) log 4.71 Log cps/mL H 09/13/18 12:29 HIV-2 Ab (Immunoblot) See scanned result 09/11/18 19:14 HIV 1&2 Antibody Rapid Reactive (Non React) 09/11/18 19:14 HIV P24 Antigen Non react (Non React) 09/11/18 19:14 Influenza A (Rapid) Negative (Negative) 09/13/18 16:05 Influenza A (RT-PCR) Negative (Negative) 09/13/18 16:05 Influenza B (Rapid) Negative (Negative) 09/13/18 16:05 Influenza B (RT-PCR) Negative (Negative) 09/13/18 16:05 Toxoplasma IgG Ab <7.20 IU/mL (<7.20) 09/16/18 12:09 Miscellaneous Test see below 09/21/18 03:55 Nutrition/Malnutrition Assess - Dietary Evaluation Nutrition/Malnutrition Findings: Nutrition Notes Start: 09/12/18 17:45 Freq: Status: Active Protocol: Document 10/04/18 10:02 CP (Rec: 10/04/18 10:31 CP [email or web address]) Co-Sign 10/04/18 10:02 LP Nutrition Notes Initial or Follow up Brief Note Current Diagnosis Acute Kidney Injury Sepsis Respiratory Failure Other Pertinent Diagnosis HIV, bilat pneu, gastroenteritis, encephalopathy Current Diet TF- Vital High Protein at 70ml /hr [place] Body Weight (kg) 0 Subjective/Other Information Observed TF running at goal ( 70 mL) Nutrition Intervention Follow-Up By: 10/06/18 Additional Comments F/U: TF tolerance and Na labs
--- NOTE | 2018-10-04 13:57 | Progress Note ---
Assessment and Plan Cultures: 09/11/2018 blood culture: no growth 09/13/2018 serum cryptococcus ag neg 09/14/2018 CSF cryptococcus ag neg 09/14/2018 stool Nona 09/15/2018 stool +Giardia ag 09/19/2018 CSF cryptococcus ag neg 09/21/2018 tracheal aspirate culture: Nona albicans 09/23/2018 blood culture: No growth 09/23/2018 Fungal blood culture: no growth thus far A/P: 33 y/o male with no PMH; admitted on 09/11/2018 due to 4 days-AMS/behavioral changes, nausea, vomiting, diarrhea, weight loss and cough: 1) Low grade fevers: shock resolved. ?HIV related, v/s CMV related. Fevers have also resolved since initiation of HAART. Cultures have negative thus far. Completed 10 days of Ceftriaxone, off since 10/03/2018. 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 WBC worse today, could be from CMV v/s ganciclovir. Called lab and spoke to laborer general today, F/U CMV DNA PCR 09/26/2018 is 710K, 5.85 log. Generally, we do not a significant change in the log value in the first week. Transaminitis could be from CMV v/s shock liver, much improved. Repeat CMV PCR 10/03/2018 pending. 3) Acute respiratory failure: still on the vent, mainly due to mental status issues. PJP DFA negative. CXR stable without pneumonia. 4) Acute encephalopathy: possibly from neurosyphilis v/s CMV encephalitis v/s metabolic etiology. Of note, MRI did not show ventriculitis. CSF YAYO virus DNA PCR neg. Toxo IgG negative. Hypernatremia improved. 5) Neurosyphilis: CSF VDRL positive, will d/c Ceftriaxone and restart IV Penici llin. 6) Diarrhea: likely due to Giardiasis as Giardia antigen positive in stool, in immunocompromised patient. Completed several days of Flagyl, stopped on 10/03/2018 7) Oral candidiasis: on fluconazole, will need to continue as prophylaxis till immune reconstitution. 8) A.fib: cardiology following. On Amiodarone. 9) HIV/AIDS: newly diagnosed. Risk factor is MSM behavior. CD4=4. VL=50,700. 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 We started him on Tenofovir, Emtricitabine + Dolutegravir on 09/30/2018, watch closely for IRIS. 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 Also probably worse from ganciclovir. r/o disseminated MAC, thus far cultures negative. 11) MAL: resolved. creatinine stable and improved. Recs: - continue IV Penicillin G 24 million units daily - F/U CMV DNA PCR 10/03/2018 - continue IV Ganciclovir 5 mg/kg q12 hrs, continue till CMV PCR is <200 - continue atovaquone and azithromycin prophylaxis - continue fluconazole as prophylaxis - continue HAART: Tenofovir, Emtricitabine + Dolutegravir watch closely for IRIS - monitor daily CBC, BMP - may consider trial of neupogen, v/s hematology consult given the persistent neutropenia - consider neurology consult for persistent acute encephalopathy and rule out nonconvulsive status Will follow. Please call with questions. Maurizio Lopez MD [facility] C: [phone] O: [phone] F: [phone] Subjective Date of service: 10/04/18 Principal diagnosis: Severe sepsis; Ac hypoxemic Resp failure; [place]. Pneumonia; Ac encephalopathy Interval history: Remains status quo. Awake, but doens't obey commands. D/W Bedside RN. No fever. Minimal diarrhea, has rectal tube. Objective - Exam Narrative Exam: Physical Exam: Constitutional: intubated, on the event, awake but doesn't obey commands Head, Ears, Nose: Normocephalic, atraumatic. Eyes: Conjunctivae/corneas clear. No icterus. No ptosis. Neck: Supple, no meningeal signs Oral: intubated. Cardiovascular: S1, S2 normal. Respiratory: Good air entry, clear to auscultation bilaterally GI: Soft, bowel sounds normal. No peritoneal signs, Rectal tube + with minimal diarrhea Musculoskeletal: No pedal edema, no cyanosis. Skin: No rash or abscess Hem/Lymphatic: No palpable cervical or supraclavicular nodes. No lymphangitis Psych: calm, without agitation Neurological: intubated, on the vent, awake, but doesn't follow commands - Constitutional Vitals: Vital Signs Temp Pulse Resp BP Pulse Ox 98.7 F 82 25 H 127/85 100 10/04/18 08:00 10/04/18 13:38 10/04/18 13:38 10/04/18 13:38 10/04/18 13:38 Temperature -Last 24 Hours Temperature 98.7 F Temperature 99.3 F Temperature 99.6 F Temperature 98.6 F - Labs CBC & Chem 7: 10/04/18 04:45 10/04/18 04:45 Labs: Abnormal lab results 10/04/18 10/04/18 10/04/18 Range/Units 01:40 04:45 04:45 WBC 0.8 L* (4.5-11.0) K/mm3 RBC 3.11 L (3.65-5.03) M/mm3 Hgb 9.0 L (11.8-15.2) gm/dl Hct 27.4 L (35.5-45.6) % RDW 15.4 H (13.2-15.2) % Heparin Anti-Xa Level 0.26 L (0.3-0.7) U.I./ml Creatinine 0.7 L (0.8-1.5) mg/dL Calcium 7.5 L (8.4-10.2) mg/dL
--- NOTE | 2018-10-04 16:08 | Event Note ---
Date: 10/04/18 Bedside trach/PEG scheduled for Oct 11 at 11am. Left voicemail for sister.
[2018-10-05] MEDS: CYTOVENE 500 MG in NACL 0.9% 250ML 250 ML IV SCH ×3 (00:08→13:30)
[2018-10-05] MEDS: PFIZERPEN 5 MIL.UNITS in NACL 0.9% 50 ML IV SCH ×6 (00:14→21:33)
[2018-10-05] MEDS: PROVENTIL IH SCH ×4 (01:08→19:17)
[2018-10-05] MEDS: LOPRESSOR IV SCH ×2 (03:33→21:33)
[2018-10-05] MEDS: HEPARIN/ 0.45% NACL-25,000 UNIT/500 ML 25,000 UNIT/500 ML BAG IV SCH (03:37)
[2018-10-05] MEDS: SYNTHROID PO SCH (06:00)
[2018-10-05] MEDS: ROBINUL PO SCH ×2 (06:00→14:42)
[2018-10-05] MEDS: CORDARONE PO SCH (10:00)
[2018-10-05] MEDS: PEPCID PO SCH (10:00)
--- NOTE | 2018-10-05 10:48 | Progress Note ---
Assessment and Plan Cultures: 09/11/2018 blood culture: no growth 09/13/2018 serum cryptococcus ag neg 09/14/2018 CSF cryptococcus ag neg 09/14/2018 stool Nona 09/15/2018 stool +Giardia ag 09/19/2018 CSF cryptococcus ag neg 09/21/2018 tracheal aspirate culture: Nona albicans 09/23/2018 blood culture: No growth 09/23/2018 Fungal blood culture: no growth thus far A/P: 33 y/o male with no PMH; admitted on 09/11/2018 due to 4 days-AMS/behavioral changes, nausea, vomiting, diarrhea, weight loss and cough: 1) Low grade fevers: shock resolved. ?HIV related, v/s CMV related. Fevers have also resolved since initiation of HAART. Cultures have negative thus far. Completed 10 days of Ceftriaxone, off since 10/03/2018. 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 WBC remains low could be from CMV v/s ganciclovir. Called lab and spoke to laboratory animal facility supervisor, F/U CMV DNA PCR 09/26/2018 is 710K, 5.85 log. Generally, we do not a significant change in the log value in the first week. Repeat CMV PCR 10/03/2018 pending. 3) Acute respiratory failure: still on the vent, mainly due to mental status issues. PJP DFA negative. CXR stable without pneumonia. 4) Acute encephalopathy: possibly from neurosyphilis v/s CMV encephalitis v/s metabolic etiology. Of note, MRI did not show ventriculitis. CSF YAYO virus DNA PC R neg. Toxo IgG negative. Hypernatremia improved. Consider neurology consult given persistent encephalopathy. 5) Neurosyphilis: CSF VDRL positive, off Ceftriaxone and back on IV Penicillin (will complete 21 days). 6) Diarrhea: likely due to Giardiasis as Giardia antigen positive in stool, in immunocompromised patient. Completed several days of Flagyl, stopped on 10/03/2018. 7) Oral candidiasis: on fluconazole, will need to continue as prophylaxis till immune reconstitution. 8) A.fib: cardiology following. On Amiodarone. 9) HIV/AIDS: newly diagnosed. Risk factor is MSM behavior. CD4=4. VL=50,700. 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 We started him on Tenofovir, Emtricitabine + Dolutegravir on 09/30/2018, watch closely for IRIS. 10) Neutropenia: likely from HIV/CMV myelosuppression. Also probably worse from ganciclovir. r/o disseminated MAC, thus far cultures negative. Will give 1 dose of neupogen, may have to consider hematology consult. 11) MAL: resolved. creatinine stable and improved. Recs: - continue IV Penicillin G 24 million units daily (D18 ) - F/U CMV DNA PCR 10/03/2018 - continue IV Ganciclovir 5 mg/kg q12 hrs, continue till CMV PCR is <200 - continue atovaquone and azithromycin prophylaxis - continue fluconazole 200 mg daily PO as prophylaxis - continue HAART: Tenofovir, Emtricitabine + Dolutegravir watch closely for IRIS - monitor daily CBC, BMP - will give 1 dose of neupogen today, consider hematology consult given the persistent neutropenia - consider neurology consult for persistent acute encephalopathy and rule out nonconvulsive seizures v/s other etiology Will follow. Please call with questions. Maurizio Lopez MD [facility] C: [phone] O: [phone] F: [phone] Subjective Date of service: 10/05/18 Principal diagnosis: Severe sepsis; Ac hypoxemic Resp failure; [place]. Pneumonia; Ac encephalopathy Interval history: Remains afebrile. Mental status unchanged, awake but doesn't follow commands. Stable on vent, minimal settings. Trach/PEG planned for 10/11/2018. diarrhea stable, has rectal tube. Objective - Exam Narrative Exam: Physical Exam: Constitutional: intubated, on the event, awake but doesn't follow any commands Head, Ears, Nose: Normocephalic, atraumatic. Eyes: Conjunctivae/corneas clear. No icterus. No ptosis. Neck: Supple, no meningeal signs Oral: intubated. Cardiovascular: S1, S2 normal. Respiratory: Good air entry, clear to auscultation bilaterally GI: Soft, bowel sounds normal. No peritoneal signs, Rectal tube + with minimal diarrhea Musculoskeletal: No pedal edema, no cyanosis. Skin: No rash or abscess Hem/Lymphatic: No palpable cervical or supraclavicular nodes. No lymphangitis Psych: calm, without agitation Neurological: intubated, on the vent, awake, but doesn't follow commands - Constitutional Vitals: Vital Signs Temp Pulse Resp BP Pulse Ox 99.0 F 95 H 21 113/60 100 10/05/18 04:00 10/05/18 08:10 10/05/18 08:10 10/05/18 08:10 10/05/18 08:10 Temperature -Last 24 Hours Temperature 99.0 F Temperature 99.5 F Temperature 99.6 F Temperature 97.8 F Temperature 97.2 F - Labs CBC & Chem 7: 10/04/18 04:45 10/04/18 04:45 - Imaging and cardiology Chest x-ray: report reviewed, image reviewed (CXR stable.)
[2018-10-05] MEDS: TIVICAY PO SCH (10:59)
[2018-10-05] MEDS: MEPRON PO SCH (10:59)
[2018-10-05] MEDS: VIREAD PO SCH (10:59)
[2018-10-05] MEDS: EMTRIVA PO SCH (10:59)
[2018-10-05] MEDS: SODIUM CHLORIDE FLUSH SYRINGE 10 ML IV SCH (11:07)
[2018-10-05] MEDS ORDERED: GRANIX SUB-Q ONE (12:00)
--- NOTE | 2018-10-05 12:14 | Progress Note ---
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 He did not use condom consistently. - CD4=4 - VL=50,700 Elevated LFTs: resolved Neutropenia/thrombocytopenia Hypernatremia -VAP bundle addressed -Lung protective strategies -Antimicrobials per ID, HAART per ID - continue supplemental oxygen to keep sats > 90% - continue bronchodilators with pulmonary - continue daily SBT's, at this time mental status precludes liberation from MVS - monitor for drug-drug interactions - continue enteral nutrition as tolerated - PT/OT/ROM exercises as tolerated - mobility protocol for pressure ulcer prevention - continue GI & VTE prophylaxis -Re-culture if any fevers -Replete electrolytes as indicated -May benefit from Neupogen Evaluation for trach and PEG placement by general surgery, scheduled for 10/11/18 LTACH evaluation for discharge planning - continue other care per attending / other consultants The high probability of a clinically significant, sudden or life threatening deterioration of the [cardiac, respiratory and neurologic] system(s) required my full and direct attention, intervention and personal management. The aggregate critical care time was [30] minutes. This time is in addition to time spent performing reported procedures but includes the following: [x] Data Review and interpretation [x] Patient assessment and monitoring of vital signs [x] Documentation Subjective Date of service: 10/05/18 Principal diagnosis: Severe sepsis; Ac hypoxemic Resp failure; [place]. Pneumonia; Ac encephalopathy Interval history: 33 y/o male with no PMH; admitted on 09/11/2018 due to 4 days-AMS/behavioral changes, nausea, voimiting, diarrhea, weight loss and cough: Patient is seen today for: Severe sepsis (present on admission with fever, tachycardia, hypotension and elevated lactate); Acute hypoxemic Respiratory failure; Bilateral pneumonia; Acute encephalopathy (Toxic / Metabolic); Atrial Fibrillation with RVR; HIV-AIDS Seen and examined at bedside; 24hour events reviewed; nursing and respiratory care staff consulted; no adverse overnight events reported to me; resting peace fully in bed; generalized edema with ongoing diarrhea. No further fevers overnight, Oral secretions, awake but not obeying commands. Remains on MVS, PSV 10/6 with tidal volumes of about 350ml, not in any distress Discussed with general surgery, trach tentatively for 10/11/18. No new events overnight Objective Vital Signs - 12hr 10/05/18 10/05/18 10/05/18 00:31 01:00 01:10 Temperature Pulse Rate 89 91 H 95 H Pulse Rate [ 92 H Anterior Bilateral Throughout] Pulse Rate [ 90 Throughout] Respiratory 28 H 25 H Rate Respiratory 16 Rate [Anterior Bilateral Throughout] Respiratory 22 Rate [ Throughout] Blood Pressure 128/76 110/61 O2 Sat by Pulse 100 100 100 Oximetry 10/05/18 10/05/18 10/05/18 01:31 02:00 02:31 Temperature Pulse Rate 93 H 96 H 95 H Pulse Rate [ Anterior Bilateral Throughout] Pulse Rate [ Throughout] Respiratory 15 17 16 Rate Respiratory Rate [Anterior Bilateral Throughout] Respiratory Rate [ Throughout] Blood Pressure 126/72 105/63 117/60 O2 Sat by Pulse 100 100 100 Oximetry 10/05/18 10/05/18 10/05/18 03:00 03:31 03:33 Temperature Pulse Rate 95 H 97 H 93 H Pulse Rate [ Anterior Bilateral Throughout] Pulse Rate [ Throughout] Respiratory 22 22 Rate Respiratory Rate [Anterior Bilateral Throughout] Respiratory Rate [ Throughout] Blood Pressure 118/65 118/65 111/60 O2 Sat by Pulse 100 100 Oximetry 10/05/18 10/05/18 10/05/18 04:00 04:31 05:00 Temperature 99.0 F Pulse Rate 97 H 94 H 92 H Pulse Rate [ Anterior Bilateral Throughout] Pulse Rate [ Throughout] Respiratory 23 17 21 Rate Respiratory Rate [Anterior Bilateral Throughout] Respiratory Rate [ Throughout] Blood Pressure 138/77 138/77 110/68 O2 Sat by Pulse 100 100 100 Oximetry 10/05/18 10/05/18 10/05/18 05:15 05:31 06:00 Temperature Pulse Rate 98 H 96 H 97 H Pulse Rate [ Anterior Bilateral Throughout] Pulse Rate [ Throughout] Respiratory 34 H 23 Rate Respiratory Rate [Anterior Bilateral Throughout] Respiratory Rate [ Throughout] Blood Pressure 118/81 118/81 119/68 O2 Sat by Pulse 100 100 100 Oximetry 10/05/18 10/05/18 10/05/18 06:31 07:24 08:10 Temperature Pulse Rate 95 H 95 H Pulse Rate [ 97 H Anterior Bilateral Throughout] Pulse Rate [ 95 H Throughout] Respiratory 20 21 Rate Respiratory 24 Rate [Anterior Bilateral Throughout] Respiratory 24 Rate [ Throughout] Blood Pressure 113/60 113/60 O2 Sat by Pulse 100 100 Oximetry Constitutional: lethargic, agitated, appears uncomfortable, other (orally intubated ETT at 23cm) Eyes: non-icteric ENT: oropharynx moist, other (ETT 25 cm NIKA) Neck: supple, no lymphadenopathy, other (no thyromegaly) Effort: normal Ascultation: Bilateral: rales, rhonchi (scant) Percussion: Bilateral: not dull Cardiovascular: regular rate and rhythm, other (S1,S2, no murmurs, gallps or rubs) Gastrointestinal: normoactive bowel sounds, soft, non-tender, non-distended Integumentary: rash Extremities: no cyanosis, pulses normal, no ischemia or petechiae, edema Neurologic: non-focal exam (grossly), pupils equal and round, motor strength normal and (weak ) Psychiatric: other (unable to assess) CBC and BMP: 10/04/18 04:45 10/04/18 04:45 ABG, PT/INR, D-dimer: ABG POC ABG pH 7.387 (7.35-7.45) 10/01/18 13:06 POC ABG pCO2 44.1 (35-45) 10/01/18 13:06 POC ABG pO2 83 (80-105) 10/01/18 13:06 POC ABG HCO3 26.5 10/01/18 13:06 POC ABG Total CO2 28 10/01/18 13:06 POC ABG O2 Sat 96 10/01/18 13:06 PT/INR, D-dimer PT 19.9 Sec. (12.2-14.9) H 09/21/18 15:00 INR 1.65 (0.87-1.13) H 09/21/18 15:00 Abnormal lab findings: Abnormal Labs 09/11/18 09/11/18 09/11/18 18:00 18:00 18:00 WBC 1.9 L* RBC Hgb Hct RDW Plt Count 130 L Seg Neuts % (Manual) Lymphocytes % (Manual) Monocytes % (Manual) 16.0 H Eosinophils % (Manual) Basophils % (Manual) Nucleated RBC % Seg Neutrophils # Man 0.9 L Abs Lymphs (Manual) Lymphocytes # (Manual) 0.5 L PT INR APTT Heparin Anti-Xa Level POC ABG pH POC ABG pCO2 POC ABG pO2 Sodium 131 L Potassium Chloride Carbon Dioxide 17 L BUN 21 H Creatinine Glucose 126 H POC Glucose Lactic Acid 2.60 H* Calcium 8.1 L Phosphorus Magnesium AST 123 H ALT 115 H Total Creatine Kinase Total Protein Albumin 3.0 L Vitamin B12 TSH Free T4 CSF VDRL Lymph Enumerat CD4/CD8 Absolute CD3 Count % CD4 Cells Absolute CD4 Count % CD8 Cells Absolute CD19 Count T.pallidum Ab (FTA-ABS) HIV-1 RNA PCR copies/ml HIV-1 RNA (PCR) log Miscellaneous Test 09/11/18 09/13/18 09/13/18 19:01 04:28 07:31 WBC 2.0 L RBC Hgb Hct RDW Plt Count 116 L Seg Neuts % (Manual) Lymphocytes % (Manual) Monocytes % (Manual) 8.0 H Eosinophils % (Manual) Basophils % (Manual) Nucleated RBC % Seg Neutrophils # Man 1.0 L Abs Lymphs (Manual) Lymphocytes # (Manual) 0.5 L PT INR APTT Heparin Anti-Xa Level POC ABG pH POC ABG pCO2 POC ABG pO2 Sodium Potassium Chloride 110.4 H Carbon Dioxide 19 L BUN Creatinine Glucose POC Glucose Lactic Acid 3.70 H* Calcium 7.9 L Phosphorus Magnesium AST ALT Total Creatine Kinase Total Protein Albumin Vitamin B12 TSH Free T4 CSF VDRL Lymph Enumerat CD4/CD8 Absolute CD3 Count % CD4 Cells Absolute CD4 Count % CD8 Cells Absolute CD19 Count T.pallidum Ab (FTA-ABS) HIV-1 RNA PCR copies/ml HIV-1 RNA (PCR) log Miscellaneous Test 09/13/18 09/13/18 09/13/18 07:31 12:29 12:29 WBC RBC Hgb Hct RDW Plt Count Seg Neuts % (Manual) Lymphocytes % (Manual) Monocytes % (Manual) Eosinophils % (Manual) Basophils % (Manual) Nucleated RBC % Seg Neutrophils # Man Abs Lymphs (Manual) 309 L Lymphocytes # (Manual) PT INR APTT Heparin Anti-Xa Level POC ABG pH POC ABG pCO2 POC ABG pO2 Sodium Potassium Chloride Carbon Dioxide BUN Creatinine Glucose POC Glucose Lactic Acid Calcium Phosphorus Magnesium AST 70 H ALT 68 H Total Creatine Kinase Total Protein Albumin 2.5 L Vitamin B12 TSH Free T4 CSF VDRL Lymph Enumerat CD4/CD8 0.01 L Absolute CD3 Count 220 L % CD4 Cells 1 L Absolute CD4 Count 4 L % CD8 Cells 70 H Absolute CD19 Count 54 L T.pallidum Ab (FTA-ABS) HIV-1 RNA PCR copies/ml 58932 H HIV-1 RNA (PCR) log 4.71 H Miscellaneous Test 09/13/18 09/14/18 09/14/18 12:29 07:17 16:34 WBC RBC Hgb Hct RDW Plt Count Seg Neuts % (Manual) Lymphocytes % (Manual) Monocytes % (Manual) Eosinophils % (Manual) Basophils % (Manual) Nucleated RBC % Seg Neutrophils # Man Abs Lymphs (Manual) Lymphocytes # (Manual) PT INR APTT Heparin Anti-Xa Level POC ABG pH POC ABG pCO2 POC ABG pO2 Sodium Potassium 3.4 L Chloride Carbon Dioxide 18 L BUN Creatinine Glucose 104 H POC Glucose Lactic Acid Calcium 7.6 L Phosphorus Magnesium AST 49 H ALT Total Creatine Kinase Total Protein Albumin 2.5 L Vitamin B12 TSH Free T4 CSF VDRL Lymph Enumerat CD4/CD8 Absolute CD3 Count % CD4 Cells Absolute CD4 Count % CD8 Cells Absolute CD19 Count T.pallidum Ab (FTA-ABS) Reactive H HIV-1 RNA PCR copies/ml HIV-1 RNA (PCR) log Miscellaneous Test Flexitest 1 H 09/15/18 09/15/18 09/15/18 05:05 05:05 Unknown WBC 1.6 L* RBC Hgb 10.4 L Hct 31.1 L D RDW Plt Count 113 L Seg Neuts % (Manual) Lymphocytes % (Manual) Monocytes % (Manual) Eosinophils % (Manual) Basophils % (Manual) Nucleated RBC % Seg Neutrophils # Man Abs Lymphs (Manual) Lymphocytes # (Manual) PT INR APTT Heparin Anti-Xa Level POC ABG pH POC ABG pCO2 POC ABG pO2 Sodium Potassium Chloride 107.9 H Carbon Dioxide 18 L BUN 6 L Creatinine Glucose POC Glucose Lactic Acid Calcium 7.4 L Phosphorus Magnesium AST ALT Total Creatine Kinase Total Protein Albumin Vitamin B12 TSH Free T4 CSF VDRL Reactive 1:8 H Lymph Enumerat CD4/CD8 Absolute CD3 Count % CD4 Cells Absolute CD4 Count % CD8 Cells Absolute CD19 Count T.pallidum Ab (FTA-ABS) HIV-1 RNA PCR copies/ml HIV-1 RNA (PCR) log Miscellaneous Test 09/16/18 09/16/18 09/16/18 06:55 11:41 11:41 WBC 2.8 L RBC Hgb 10.9 L Hct 33.5 L RDW Plt Count 135 L Seg Neuts % (Manual) Lymphocytes % (Manual) Monocytes % (Manual) Eosinophils % (Manual) Basophils % (Manual) Nucleated RBC % Seg Neutrophils # Man Abs Lymphs (Manual) Lymphocytes # (Manual) PT INR APTT Heparin Anti-Xa Level POC ABG pH POC ABG pCO2 POC ABG pO2 Sodium Potassium Chloride Carbon Dioxide BUN Creatinine Glucose POC Glucose Lactic Acid Calcium Phosphorus Magnesium AST ALT Total Creatine Kinase Total Protein Albumin Vitamin B12 TSH 4.210 H Free T4 0.72 L CSF VDRL Lymph Enumerat CD4/CD8 Absolute CD3 Count % CD4 Cells Absolute CD4 Count % CD8 Cells Absolute CD19 Count T.pallidum Ab (FTA-ABS) HIV-1 RNA PCR copies/ml HIV-1 RNA (PCR) log Miscellaneous Test 09/16/18 09/16/18 09/17/18 11:41 15:43 05:13 WBC 2.0 L RBC Hgb 10.9 L Hct 32.7 L RDW Plt Count Seg Neuts % (Manual) Lymphocytes % (Manual) Monocytes % (Manual) Eosinophils % (Manual) Basophils % (Manual) Nucleated RBC % Seg Neutrophils # Man Abs Lymphs (Manual) Lymphocytes # (Manual) PT INR APTT Heparin Anti-Xa Level POC ABG pH POC ABG pCO2 29.3 L POC ABG pO2 70 L Sodium Potassium Chloride Carbon Dioxide BUN Creatinine Glucose POC Glucose Lactic Acid Calcium Phosphorus Magnesium AST ALT Total Creatine Kinase Total Protein Albumin Vitamin B12 934.5 H TSH Free T4 CSF VDRL Lymph Enumerat CD4/CD8 Absolute CD3 Count % CD4 Cells Absolute CD4 Count % CD8 Cells Absolute CD19 Count T.pallidum Ab (FTA-ABS) HIV-1 RNA PCR copies/ml HIV-1 RNA (PCR) log Miscellaneous Test 09/17/18 09/17/18 09/18/18 05:13 21:57 12:46 WBC RBC Hgb Hct RDW Plt Count Seg Neuts % (Manual) Lymphocytes % (Manual) Monocytes % (Manual) Eosinophils % (Manual) Basophils % (Manual) Nucleated RBC % Seg Neutrophils # Man Abs Lymphs (Manual) Lymphocytes # (Manual) PT INR APTT Heparin Anti-Xa Level POC ABG pH POC ABG pCO2 POC ABG pO2 Sodium Potassium Chloride 107.2 H Carbon Dioxide 21 L BUN 3 L Creatinine 0.7 L Glucose POC Glucose 108 H Lactic Acid Calcium 7.9 L Phosphorus Magnesium AST ALT Total Creatine Kinase Total Protein 6.1 L Albumin 2.6 L Vitamin B12 TSH Free T4 0.75 L CSF VDRL Lymph Enumerat CD4/CD8 Absolute CD3 Count % CD4 Cells Absolute CD4 Count % CD8 Cells Absolute CD19 Count T.pallidum Ab (FTA-ABS) HIV-1 RNA PCR copies/ml HIV-1 RNA (PCR) log Miscellaneous Test 09/18/18 09/19/18 09/19/18 12:46 04:57 04:57 WBC 2.1 L RBC Hgb 11.4 L Hct 34.2 L RDW Plt Count Seg Neuts % (Manual) Lymphocytes % (Manual) Monocytes % (Manual) Eosinophils % (Manual) Basophils % (Manual) Nucleated RBC % Seg Neutrophils # Man Abs Lymphs (Manual) Lymphocytes # (Manual) PT INR APTT Heparin Anti-Xa Level POC ABG pH POC ABG pCO2 POC ABG pO2 Sodium Potassium Chloride Carbon Dioxide 19 L BUN 6 L Creatinine Glucose POC Glucose Lactic Acid Calcium 7.9 L Phosphorus Magnesium AST ALT Total Creatine Kinase Total Protein Albumin Vitamin B12 TSH 5.190 H Free T4 CSF VDRL Lymph Enumerat CD4/CD8 Absolute CD3 Count % CD4 Cells Absolute CD4 Count % CD8 Cells Absolute CD19 Count T.pallidum Ab (FTA-ABS) HIV-1 RNA PCR copies/ml HIV-1 RNA (PCR) log Miscellaneous Test 09/19/18 09/19/18 09/20/18 15:00 15:00 05:33 WBC RBC Hgb Hct RDW Plt Count Seg Neuts % (Manual) Lymphocytes % (Manual) Monocytes % (Manual) Eosinophils % (Manual) Basophils % (Manual) Nucleated RBC % Seg Neutrophils # Man Abs Lymphs (Manual) Lymphocytes # (Manual) PT INR APTT Heparin Anti-Xa Level POC ABG pH POC ABG pCO2 POC ABG pO2 Sodium 136 L Potassium Chloride Carbon Dioxide 19 L BUN 7 L Creatinine Glucose POC Glucose Lactic Acid Calcium Phosphorus Magnesium AST ALT Total Creatine Kinase Total Protein Albumin Vitamin B12 TSH Free T4 CSF VDRL Reactive 1:4 H Lymph Enumerat CD4/CD8 Absolute CD3 Count % CD4 Cells Absolute CD4 Count % CD8 Cells Absolute CD19 Count T.pallidum Ab (FTA-ABS) HIV-1 RNA PCR copies/ml HIV-1 RNA (PCR) log Miscellaneous Test Flexitest 1 H 09/20/18 09/21/18 09/21/18 06:52 01:06 03:49 WBC 2.5 L RBC Hgb Hct RDW Plt Count Seg Neuts % (Manual) Lymphocytes % (Manual) Monocytes % (Manual) Eosinophils % (Manual) Basophils % (Manual) Nucleated RBC % Seg Neutrophils # Man Abs Lymphs (Manual) Lymphocytes # (Manual) PT INR APTT Heparin Anti-Xa Level POC ABG pH 7.159 L POC ABG pCO2 32.9 L 70.0 H POC ABG pO2 62 L 254 H Sodium Potassium Chloride Carbon Dioxide BUN Creatinine Glucose POC Glucose Lactic Acid Calcium Phosphorus Magnesium AST ALT Total Creatine Kinase Total Protein Albumin Vitamin B12 TSH Free T4 CSF VDRL Lymph Enumerat CD4/CD8 Absolute CD3 Count % CD4 Cells Absolute CD4 Count % CD8 Cells Absolute CD19 Count T.pallidum Ab (FTA-ABS) HIV-1 RNA PCR copies/ml HIV-1 RNA (PCR) log Miscellaneous Test 09/21/18 09/21/18 09/21/18 04:15 04:15 04:25 WBC 3.1 L RBC Hgb 11.6 L Hct RDW Plt Count Seg Neuts % (Manual) Lymphocytes % (Manual) Monocytes % (Manual) 12.0 H Eosinophils % (Manual) Basophils % (Manual) Nucleated RBC % Seg Neutrophils # Man 1.6 L Abs Lymphs (Manual) Lymphocytes # (Manual) 0.5 L PT INR APTT Heparin Anti-Xa Level POC ABG pH POC ABG pCO2 POC ABG pO2 Sodium Potassium 6.1 H* D Chloride Carbon Dioxide 19 L BUN Creatinine Glucose 108 H POC Glucose Lactic Acid Calcium Phosphorus Magnesium AST ALT Total Creatine Kinase 685 H Total Protein Albumin Vitamin B12 TSH Free T4 CSF VDRL Lymph Enumerat CD4/CD8 Absolute CD3 Count % CD4 Cells Absolute CD4 Count % CD8 Cells Absolute CD19 Count T.pallidum Ab (FTA-ABS) HIV-1 RNA PCR copies/ml HIV-1 RNA (PCR) log Miscellaneous Test 09/21/18 09/21/18 09/21/18 09:59 10:07 11:00 WBC RBC Hgb 11.7 L Hct RDW Plt Count Seg Neuts % (Manual) Lymphocytes % (Manual) Monocytes % (Manual) Eosinophils % (Manual) Basophils % (Manual) Nucleated RBC % Seg Neutrophils # Man Abs Lymphs (Manual) Lymphocytes # (Manual) PT INR APTT Heparin Anti-Xa Level POC ABG pH 7.301 L POC ABG pCO2 POC ABG pO2 109 H Sodium Potassium 6.5 H* Chloride Carbon Dioxide 18 L BUN Creatinine 2.1 H D Glucose POC Glucose Lactic Acid Calcium 8.1 L Phosphorus Magnesium AST 94 H ALT Total Creatine Kinase Total Protein Albumin 2.8 L Vitamin B12 TSH Free T4 CSF VDRL Lymph Enumerat CD4/CD8 Absolute CD3 Count % CD4 Cells Absolute CD4 Count % CD8 Cells Absolute CD19 Count T.pallidum Ab (FTA-ABS) HIV-1 RNA PCR copies/ml HIV-1 RNA (PCR) log Miscellaneous Test 09/21/18 09/21/18 09/21/18 15:00 21:54 21:54 WBC RBC Hgb Hct RDW Plt Count Seg Neuts % (Manual) Lymphocytes % (Manual) Monocytes % (Manual) Eosinophils % (Manual) Basophils % (Manual) Nucleated RBC % Seg Neutrophils # Man Abs Lymphs (Manual) Lymphocytes # (Manual) PT 19.9 H INR 1.65 H APTT 40.9 H Heparin Anti-Xa Level 0.98 H POC ABG pH POC ABG pCO2 POC ABG pO2 Sodium Potassium 5.2 H Chloride Carbon Dioxide BUN Creatinine Glucose POC Glucose Lactic Acid Calcium Phosphorus Magnesium AST ALT Total Creatine Kinase Total Protein Albumin Vitamin B12 TSH Free T4 CSF VDRL Lymph Enumerat CD4/CD8 Absolute CD3 Count % CD4 Cells Absolute CD4 Count % CD8 Cells Absolute CD19 Count T.pallidum Ab (FTA-ABS) HIV-1 RNA PCR copies/ml HIV-1 RNA (PCR) log Miscellaneous Test 09/21/18 09/22/18 09/22/18 22:57 03:01 05:27 WBC RBC Hgb Hct RDW Plt Count Seg Neuts % (Manual) Lymphocytes % (Manual) Monocytes % (Manual) Eosinophils % (Manual) Basophils % (Manual) Nucleated RBC % Seg Neutrophils # Man Abs Lymphs (Manual) Lymphocytes # (Manual) PT INR APTT Heparin Anti-Xa Level POC ABG pH POC ABG pCO2 32.7 L POC ABG pO2 Sodium Potassium Chloride Carbon Dioxide BUN Creatinine Glucose POC Glucose 124 H 128 H Lactic Acid Calcium Phosphorus Magnesium AST ALT Total Creatine Kinase Total Protein Albumin Vitamin B12 TSH Free T4 CSF VDRL Lymph Enumerat CD4/CD8 Absolute CD3 Count % CD4 Cells Absolute CD4 Count % CD8 Cells Absolute CD19 Count T.pallidum Ab (FTA-ABS) HIV-1 RNA PCR copies/ml HIV-1 RNA (PCR) log Miscellaneous Test 09/22/18 09/22/18 09/22/18 07:00 07:00 11:32 WBC 1.8 L* RBC 3.59 L Hgb 10.1 L Hct 30.8 L RDW Plt Count 126 L Seg Neuts % (Manual) Lymphocytes % (Manual) Monocytes % (Manual) Eosinophils % (Manual) Basophils % (Manual) Nucleated RBC % Seg Neutrophils # Man Abs Lymphs (Manual) Lymphocytes # (Manual) PT INR APTT Heparin Anti-Xa Level POC ABG pH POC ABG pCO2 POC ABG pO2 Sodium Potassium Chloride Carbon Dioxide BUN 27 H Creatinine 2.0 H Glucose 128 H POC Glucose 123 H Lactic Acid Calcium 6.9 L Phosphorus Magnesium AST ALT Total Creatine Kinase Total Protein Albumin Vitamin B12 TSH Free T4 CSF VDRL Lymph Enumerat CD4/CD8 Absolute CD3 Count % CD4 Cells Absolute CD4 Count % CD8 Cells Absolute CD19 Count T.pallidum Ab (FTA-ABS) HIV-1 RNA PCR copies/ml HIV-1 RNA (PCR) log Miscellaneous Test 09/22/18 09/22/18 09/22/18 15:52 18:18 23:52 WBC RBC Hgb Hct RDW Plt Count Seg Neuts % (Manual) Lymphocytes % (Manual) Monocytes % (Manual) Eosinophils % (Manual) Basophils % (Manual) Nucleated RBC % Seg Neutrophils # Man Abs Lymphs (Manual) Lymphocytes # (Manual) PT INR APTT Heparin Anti-Xa Level POC ABG pH POC ABG pCO2 48.7 H POC ABG pO2 Sodium Potassium Chloride Carbon Dioxide BUN Creatinine Glucose POC Glucose 110 H 124 H Lactic Acid Calcium Phosphorus Magnesium AST ALT Total Creatine Kinase Total Protein Albumin Vitamin B12 TSH Free T4 CSF VDRL Lymph Enumerat CD4/CD8 Absolute CD3 Count % CD4 Cells Absolute CD4 Count % CD8 Cells Absolute CD19 Count T.pallidum Ab (FTA-ABS) HIV-1 RNA PCR copies/ml HIV-1 RNA (PCR) log Miscellaneous Test 09/23/18 09/23/18 09/23/18 04:10 05:55 05:55 WBC RBC Hgb 10.0 L Hct 30.3 L RDW Plt Count 117 L Seg Neuts % (Manual) Lymphocytes % (Manual) Monocytes % (Manual) Eosinophils % (Manual) Basophils % (Manual) Nucleated RBC % Seg Neutrophils # Man Abs Lymphs (Manual) Lymphocytes # (Manual) PT INR APTT Heparin Anti-Xa Level 0.26 L POC ABG pH POC ABG pCO2 POC ABG pO2 144 H Sodium Potassium Chloride Carbon Dioxide BUN Creatinine Glucose POC Glucose Lactic Acid Calcium Phosphorus Magnesium AST ALT Total Creatine Kinase Total Protein Albumin Vitamin B12 TSH Free T4 CSF VDRL Lymph Enumerat CD4/CD8 Absolute CD3 Count % CD4 Cells Absolute CD4 Count % CD8 Cells Absolute CD19 Count T.pallidum Ab (FTA-ABS) HIV-1 RNA PCR copies/ml HIV-1 RNA (PCR) log Miscellaneous Test 09/23/18 09/23/18 09/23/18 08:10 08:10 23:57 WBC 1.3 L* RBC 3.53 L Hgb 9.9 L Hct 30.0 L RDW Plt Count 119 L Seg Neuts % (Manual) Lymphocytes % (Manual) Monocytes % (Manual) Eosinophils % (Manual) Basophils % (Manual) Nucleated RBC % Seg Neutrophils # Man Abs Lymphs (Manual) Lymphocytes # (Manual) PT INR APTT Heparin Anti-Xa Level POC ABG pH POC ABG pCO2 POC ABG pO2 Sodium Potassium Chloride Carbon Dioxide BUN Creatinine Glucose 122 H POC Glucose 115 H Lactic Acid Calcium 6.9 L Phosphorus Magnesium AST ALT Total Creatine Kinase Total Protein Albumin Vitamin B12 TSH Free T4 CSF VDRL Lymph Enumerat CD4/CD8 Absolute CD3 Count % CD4 Cells Absolute CD4 Count % CD8 Cells Absolute CD19 Count T.pallidum Ab (FTA-ABS) HIV-1 RNA PCR copies/ml HIV-1 RNA (PCR) log Miscellaneous Test 09/24/18 09/24/18 09/24/18 12:04 14:42 18:10 WBC RBC Hgb Hct RDW Plt Count Seg Neuts % (Manual) Lymphocytes % (Manual) Monocytes % (Manual) Eosinophils % (Manual) Basophils % (Manual) Nucleated RBC % Seg Neutrophils # Man Abs Lymphs (Manual) Lymphocytes # (Manual) PT INR APTT Heparin Anti-Xa Level 0.76 H POC ABG pH POC ABG pCO2 POC ABG pO2 Sodium Potassium Chloride Carbon Dioxide BUN Creatinine Glucose POC Glucose 111 H 138 H Lactic Acid Calcium Phosphorus Magnesium AST ALT Total Creatine Kinase Total Protein Albumin Vitamin B12 TSH Free T4 CSF VDRL Lymph Enumerat CD4/CD8 Absolute CD3 Count % CD4 Cells Absolute CD4 Count % CD8 Cells Absolute CD19 Count T.pallidum Ab (FTA-ABS) HIV-1 RNA PCR copies/ml HIV-1 RNA (PCR) log Miscellaneous Test 09/25/18 09/25/18 09/25/18 03:45 04:24 14:20 WBC RBC Hgb 9.7 L Hct 29.4 L RDW Plt Count 104 L Seg Neuts % (Manual) Lymphocytes % (Manual) Monocytes % (Manual) Eosinophils % (Manual) Basophils % (Manual) Nucleated RBC % Seg Neutrophils # Man Abs Lymphs (Manual) Lymphocytes # (Manual) PT INR APTT Heparin Anti-Xa Level POC ABG pH 7.460 H POC ABG pCO2 32.9 L POC ABG pO2 Sodium Potassium 3.5 L Chloride 110.3 H Carbon Dioxide BUN Creatinine Glucose 105 H POC Glucose Lactic Acid Calcium 6.7 L Phosphorus Magnesium AST 633 H ALT 481 H Total Creatine Kinase Total Protein 4.8 L D Albumin 1.9 L Vitamin B12 TSH Free T4 CSF VDRL Lymph Enumerat CD4/CD8 Absolute CD3 Count % CD4 Cells Absolute CD4 Count % CD8 Cells Absolute CD19 Count T.pallidum Ab (FTA-ABS) HIV-1 RNA PCR copies/ml HIV-1 RNA (PCR) log Miscellaneous Test 09/26/18 09/26/18 09/26/18 06:15 06:15 10:43 WBC 1.2 L* RBC 3.32 L Hgb 9.2 L Hct 28.6 L RDW Plt Count 97 L Seg Neuts % (Manual) 24.0 L Lymphocytes % (Manual) 43.0 H Monocytes % (Manual) 19.0 H Eosinophils % (Manual) 8.0 H Basophils % (Manual) 2.0 H Nucleated RBC % 3.0 H Seg Neutrophils # Man 0.0 L Abs Lymphs (Manual) Lymphocytes # (Manual) 0.0 L PT INR APTT Heparin Anti-Xa Level POC ABG pH 7.459 H POC ABG pCO2 POC ABG pO2 141 H Sodium Potassium Chloride 112.8 H Carbon Dioxide BUN Creatinine Glucose 110 H POC Glucose Lactic Acid Calcium 7.0 L Phosphorus 0.90 L* Magnesium AST 362 H ALT 360 H Total Creatine Kinase Total Protein 4.9 L Albumin 1.5 L Vitamin B12 TSH Free T4 CSF VDRL Lymph Enumerat CD4/CD8 Absolute CD3 Count % CD4 Cells Absolute CD4 Count % CD8 Cells Absolute CD19 Count T.pallidum Ab (FTA-ABS) HIV-1 RNA PCR copies/ml HIV-1 RNA (PCR) log Miscellaneous Test 09/26/18 09/27/18 09/28/18 13:56 04:11 07:49 WBC RBC Hgb 9.1 L Hct 29.1 L RDW Plt Count 96 L Seg Neuts % (Manual) Lymphocytes % (Manual) Monocytes % (Manual) Eosinophils % (Manual) Basophils % (Manual) Nucleated RBC % Seg Neutrophils # Man Abs Lymphs (Manual) Lymphocytes # (Manual) PT INR APTT Heparin Anti-Xa Level POC ABG pH POC ABG pCO2 POC ABG pO2 Sodium 146 H Potassium Chloride 111.6 H Carbon Dioxide BUN Creatinine Glucose POC Glucose 135 H Lactic Acid Calcium 7.4 L Phosphorus Magnesium AST ALT Total Creatine Kinase Total Protein Albumin Vitamin B12 TSH Free T4 CSF VDRL Lymph Enumerat CD4/CD8 Absolute CD3 Count % CD4 Cells Absolute CD4 Count % CD8 Cells Absolute CD19 Count T.pallidum Ab (FTA-ABS) HIV-1 RNA PCR copies/ml HIV-1 RNA (PCR) log Miscellaneous Test 09/28/18 09/29/18 09/29/18 10:43 05:00 05:00 WBC 1.2 L* RBC 3.13 L Hgb 8.6 L Hct 27.3 L RDW Plt Count 137 L Seg Neuts % (Manual) Lymphocytes % (Manual) Monocytes % (Manual) 16.0 H Eosinophils % (Manual) Basophils % (Manual) Nucleated RBC % 4.0 H Seg Neutrophils # Man 0.5 L Abs Lymphs (Manual) Lymphocytes # (Manual) 0.3 L PT INR APTT Heparin Anti-Xa Level POC ABG pH 7.300 L POC ABG pCO2 53.9 H POC ABG pO2 Sodium 147 H Potassium 3.4 L Chloride 114.5 H Carbon Dioxide BUN Creatinine Glucose POC Glucose Lactic Acid Calcium 7.7 L Phosphorus Magnesium AST 69 H ALT 110 H Total Creatine Kinase Total Protein 5.2 L Albumin 1.9 L Vitamin B12 TSH Free T4 CSF VDRL Lymph Enumerat CD4/CD8 Absolute CD3 Count % CD4 Cells Absolute CD4 Count % CD8 Cells Absolute CD19 Count T.pallidum Ab (FTA-ABS) HIV-1 RNA PCR copies/ml HIV-1 RNA (PCR) log Miscellaneous Test 09/29/18 09/29/18 09/30/18 06:07 13:22 05:19 WBC 0.9 L* RBC 3.03 L Hgb 8.6 L Hct 25.9 L RDW Plt Count Seg Neuts % (Manual) Lymphocytes % (Manual) Monocytes % (Manual) Eosinophils % (Manual) Basophils % (Manual) Nucleated RBC % Seg Neutrophils # Man Abs Lymphs (Manual) Lymphocytes # (Manual) PT INR APTT Heparin Anti-Xa Level POC ABG pH POC ABG pCO2 46.9 H POC ABG pO2 Sodium Potassium Chloride Carbon Dioxide BUN Creatinine Glucose POC Glucose 109 H Lactic Acid Calcium Phosphorus Magnesium AST ALT Total Creatine Kinase Total Protein Albumin Vitamin B12 TSH Free T4 CSF VDRL Lymph Enumerat CD4/CD8 Absolute CD3 Count % CD4 Cells Absolute CD4 Count % CD8 Cells Absolute CD19 Count T.pallidum Ab (FTA-ABS) HIV-1 RNA PCR copies/ml HIV-1 RNA (PCR) log Miscellaneous Test 09/30/18 09/30/18 09/30/18 05:19 11:14 23:28 WBC RBC Hgb Hct RDW Plt Count Seg Neuts % (Manual) Lymphocytes % (Manual) Monocytes % (Manual) Eosinophils % (Manual) Basophils % (Manual) Nucleated RBC % Seg Neutrophils # Man Abs Lymphs (Manual) Lymphocytes # (Manual) PT INR APTT Heparin Anti-Xa Level 0.72 H POC ABG pH POC ABG pCO2 46.6 H POC ABG pO2 Sodium 150 H Potassium Chloride 115.2 H Carbon Dioxide BUN Creatinine Glucose POC Glucose Lactic Acid Calcium 7.9 L Phosphorus Magnesium AST ALT Total Creatine Kinase Total Protein Albumin Vitamin B12 TSH Free T4 CSF VDRL Lymph Enumerat CD4/CD8 Absolute CD3 Count % CD4 Cells Absolute CD4 Count % CD8 Cells Absolute CD19 Count T.pallidum Ab (FTA-ABS) HIV-1 RNA PCR copies/ml HIV-1 RNA (PCR) log Miscellaneous Test 10/01/18 10/01/18 10/02/18 04:55 04:55 07:15 WBC 0.9 L* 0.7 L* RBC 3.01 L 2.92 L Hgb 8.4 L 8.4 L Hct 26.0 L 24.9 L RDW Plt Count Seg Neuts % (Manual) Lymphocytes % (Manual) Monocytes % (Manual) Eosinophils % (Manual) Basophils % (Manual) Nucleated RBC % Seg Neutrophils # Man Abs Lymphs (Manual) Lymphocytes # (Manual) PT INR APTT Heparin Anti-Xa Level POC ABG pH POC ABG pCO2 POC ABG pO2 Sodium 147 H Potassium 3.4 L Chloride 113.1 H Carbon Dioxide BUN 22 H Creatinine Glucose POC Glucose Lactic Acid Calcium 7.3 L Phosphorus Magnesium AST ALT Total Creatine Kinase Total Protein Albumin Vitamin B12 TSH Free T4 CSF VDRL Lymph Enumerat CD4/CD8 Absolute CD3 Count % CD4 Cells Absolute CD4 Count % CD8 Cells Absolute CD19 Count T.pallidum Ab (FTA-ABS) HIV-1 RNA PCR copies/ml HIV-1 RNA (PCR) log Miscellaneous Test 10/02/18 10/03/18 10/03/18 07:15 06:12 06:12 WBC 0.8 L* RBC 2.96 L Hgb 8.5 L Hct 25.9 L RDW 15.4 H Plt Count Seg Neuts % (Manual) Lymphocytes % (Manual) Monocytes % (Manual) Eosinophils % (Manual) Basophils % (Manual) Nucleated RBC % Seg Neutrophils # Man Abs Lymphs (Manual) Lymphocytes # (Manual) PT INR APTT Heparin Anti-Xa Level POC ABG pH POC ABG pCO2 POC ABG pO2 Sodium Potassium 3.4 L 3.4 L Chloride 108.3 H Carbon Dioxide BUN Creatinine Glucose POC Glucose Lactic Acid Calcium 7.6 L 7.4 L Phosphorus Magnesium AST ALT Total Creatine Kinase Total Protein Albumin Vitamin B12 TSH Free T4 CSF VDRL Lymph Enumerat CD4/CD8 Absolute CD3 Count % CD4 Cells Absolute CD4 Count % CD8 Cells Absolute CD19 Count T.pallidum Ab (FTA-ABS) HIV-1 RNA PCR copies/ml HIV-1 RNA (PCR) log Miscellaneous Test 10/03/18 10/03/18 10/04/18 11:45 13:23 01:40 WBC RBC Hgb Hct RDW Plt Count Seg Neuts % (Manual) Lymphocytes % (Manual) Monocytes % (Manual) Eosinophils % (Manual) Basophils % (Manual) Nucleated RBC % Seg Neutrophils # Man Abs Lymphs (Manual) Lymphocytes # (Manual) PT INR APTT Heparin Anti-Xa Level 1.34 H 0.26 L POC ABG pH POC ABG pCO2 POC ABG pO2 Sodium Potassium Chloride Carbon Dioxide BUN Creatinine Glucose POC Glucose Lactic Acid Calcium Phosphorus Magnesium 1.40 L AST ALT Total Creatine Kinase Total Protein Albumin Vitamin B12 TSH Free T4 CSF VDRL Lymph Enumerat CD4/CD8 Absolute CD3 Count % CD4 Cells Absolute CD4 Count % CD8 Cells Absolute CD19 Count T.pallidum Ab (FTA-ABS) HIV-1 RNA PCR copies/ml HIV-1 RNA (PCR) log Miscellaneous Test 10/04/18 10/04/18 04:45 04:45 WBC 0.8 L* RBC 3.11 L Hgb 9.0 L Hct 27.4 L RDW 15.4 H Plt Count Seg Neuts % (Manual) Lymphocytes % (Manual) Monocytes % (Manual) Eosinophils % (Manual) Basophils % (Manual) Nucleated RBC % Seg Neutrophils # Man Abs Lymphs (Manual) Lymphocytes # (Manual) PT INR APTT Heparin Anti-Xa Level POC ABG pH POC ABG pCO2 POC ABG pO2 Sodium Potassium Chloride Carbon Dioxide BUN Creatinine 0.7 L Glucose POC Glucose Lactic Acid Calcium 7.5 L Phosphorus Magnesium AST ALT Total Creatine Kinase Total Protein Albumin Vitamin B12 TSH Free T4 CSF VDRL Lymph Enumerat CD4/CD8 Absolute CD3 Count % CD4 Cells Absolute CD4 Count % CD8 Cells Absolute CD19 Count T.pallidum Ab (FTA-ABS) HIV-1 RNA PCR copies/ml HIV-1 RNA (PCR) log Miscellaneous Test Allied health notes reviewed: RT
--- NOTE | 2018-10-05 12:19 | Progress Note ---
Assessment and Plan Assessment and plan: Severe Sepsis. Etiology secondary to bacterial pneumonia +/- gastroenteritis with newly diagnosed with HIV. Fevers have also resolved since initiation of HAART. Cultures have negative thus far. Completed 10 days of Ceftriaxone, off since 10/03/2018. Acute hypoxemic respiratory failure. Etiology mostly secondary to mental status issues. Pulm following Disseminated CMV viremia: continue IV Ganciclovir. WBC remains low could be from CMV v/s ganciclovir. F/U CMV DNA PCR 09/26/2018 is 710K, 5.85 log. Repeat CMV PCR 10/03/2018 pending. Toxic metabolic encephalopathy. 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 Of note, MRI did not show ventriculitis. Neurology consultation. A. fib with RVR. Converted to NSR. cont Amiodarone Cont Heparin drip. Neurosyphilis: CSF VDRL positive, off Ceftriaxone and back on IV Penicillin (will complete 21 days). Completed several days of Flagyl, stopped on 10/03/2018. Diarrhea. Resolved, etiology likely secondary to Giardia. Giardia antigen positive in stool. Oral candidiasis. Fluconazole HIV/AIDS. New Diagnosis. Started on HAART on 09/30 Neutropenia. 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 Also probably worse from ganciclovir. r/o disseminated MAC, thus far cultures negative. Will give 1 dose of neupogen, may have to consider hematology consult. MAL. Resolved Prognosis is guarded. For Trach and PEG. Surg consulted The high probability of a clinically significant, sudden or life threatening deterioration of the [neurological, respiratory and cardiac] system(s) required my full and direct attention, intervention and personal management. The aggregate critical care time was [33] minutes. This time is in addition to time spent performing reported procedures but includes the following: [x] Data Review and interpretation [x] Patient assessment and monitoring of vital signs [x] Documentation [x] Medication orders and management History Interval history: Patient is 33 yo initially presented with diarrhea, found to have pneumonia, sepsis, HIV/AIDS(new diagnosis) with CD4 count of 4. He was started on abx for PJP. His mental status has worsened with confusion, lethargy. LP done . He was diagnosed with neurosyphilis. Started on Penicillin. Closest family is sister in [place], and dr. Baltazar spoke to her several times about diagnosis but did not tell her about HIV/AIDS because of patient confidentiality. The patient decompensated on 09/20/18 with acute hypoxemic respiratory failure and worsening toxic metabolic encephalopathy requiring transfer to ICU and intubation. He now remains on mechanical ventilation. The patient was also noted to develop SVT requiring amiodarone drip as well as heparin drip. Hospitalist Physical - Constitutional Vitals: Temp Pulse Resp BP Pulse Ox 99.0 F 95 H 21 113/60 100 10/05/18 04:00 10/05/18 08:10 10/05/18 08:10 10/05/18 08:10 10/05/18 08:10 General appearance: Present: other (orally intubated) - EENT Eyes: Present: PERRL, EOM intact ENT: hearing intact, clear oral mucosa, dentition normal - Neck Neck: Present: supple, normal ROM - Respiratory Respiratory effort: normal Respiratory: bilateral: diminished, rales, rhonchi - Cardiovascular Rhythm: regular Heart Sounds: Present: S1 & S2. Absent: gallop, rub - Extremities Extremities: no ischemia, No edema, Full ROM - Abdominal General gastrointestinal: soft, non-tender, non-distended, normal bowel sounds - Integumentary Integumentary: Present: clear, warm, dry - Neurologic Neurologic: other (patient remains unresponsive) Results - Labs CBC & Chem 7: 10/04/18 04:45 10/04/18 04:45 Labs: Laboratory Last Values WBC 0.8 K/mm3 (4.5-11.0) L* 10/04/18 04:45 RBC 3.11 M/mm3 (3.65-5.03) L 10/04/18 04:45 Hgb 9.0 gm/dl (11.8-15.2) L 10/04/18 04:45 Hct 27.4 % (35.5-45.6) L 10/04/18 04:45 MCV 88 fl (84-94) 10/04/18 04:45 MCH 29 pg (28-32) 10/04/18 04:45 MCHC 33 % (32-34) 10/04/18 04:45 RDW 15.4 % (13.2-15.2) H 10/04/18 04:45 Plt Count 167 K/mm3 (140-440) 10/04/18 04:45 [place] % (Auto) Back Strip Machine Operator 09/29/18 05:00 Baso % (Auto) Back Strip Machine Operator 09/29/18 05:00 Add Manual Diff Complete 09/29/18 05:00 Total Counted 25 09/29/18 05:00 Seg Neutrophils % Back Strip Machine Operator 09/29/18 05:00 Seg Neuts % (Manual) 40.0 % (40.0-70.0) 09/29/18 05:00 Band Neutrophils % 4.0 % 09/29/18 05:00 Lymphocytes % (Manual) 28.0 % (13.4-35.0) 09/29/18 05:00 Reactive Lymphs % (Man) 0 % 09/29/18 05:00 Monocytes % (Manual) 16.0 % (0.0-7.3) H 09/29/18 05:00 Eosinophils % (Manual) 0 % (0.0-4.3) 09/29/18 05:00 Basophils % (Manual) 0 % (0.0-1.8) 09/29/18 05:00 Metamyelocytes % 8.0 % 09/29/18 05:00 Myelocytes % 0 % 09/29/18 05:00 Promyelocytes % 4.0 % 09/29/18 05:00 Blast Cells % 0 % 09/29/18 05:00 Nucleated RBC % 4.0 % (0.0-0.9) H 09/29/18 05:00 Seg Neutrophils # Man 0.5 K/mm3 (1.8-7.7) L 09/29/18 05:00 Band Neutrophils # 0.0 K/mm3 09/29/18 05:00 Abs Lymphs (Manual) 309 cells/uL (850-3900) L 09/13/18 12:29 Lymphocytes # (Manual) 0.3 K/mm3 (1.2-5.4) L 09/29/18 05:00 Abs React Lymphs (Man) 0.0 K/mm3 09/29/18 05:00 Monocytes # (Manual) 0.2 K/mm3 (0.0-0.8) 09/29/18 05:00 Eosinophils # (Manual) 0.0 K/mm3 (0.0-0.4) 09/29/18 05:00 Basophils # (Manual) 0.0 K/mm3 (0.0-0.1) 09/29/18 05:00 Metamyelocytes # 0.1 K/mm3 09/29/18 05:00 Myelocytes # 0.0 K/mm3 09/29/18 05:00 Promyelocytes # 0.0 K/mm3 09/29/18 05:00 Blast Cells # 0.0 K/mm3 09/29/18 05:00 WBC Morphology Not Reportable 09/29/18 05:00 Hypersegmented Neuts Not Reportable 09/29/18 05:00 Hyposegmented Neuts Not Reportable 09/29/18 05:00 Hypogranular Neuts Not Reportable 09/29/18 05:00 Smudge Cells Not Reportable 09/29/18 05:00 Toxic Granulation Not Reportable 09/29/18 05:00 Toxic Vacuolation Not Reportable 09/29/18 05:00 Dohle Bodies Not Reportable 09/29/18 05:00 Pelger-Huet Anomaly Not Reportable 09/29/18 05:00 Giovanna Rods Not Reportable 09/29/18 05:00 Platelet Estimate Appears normal 09/29/18 05:00 Clumped Platelets Not Reportable 09/29/18 05:00 Plt Clumps, EDTA Not Reportable 09/29/18 05:00 Large Platelets Few 09/29/18 05:00 Giant Platelets Not Reportable 09/29/18 05:00 Platelet Satelliting Not Reportable 09/29/18 05:00 Plt Morphology Comment Not Reportable 09/29/18 05:00 RBC Morphology Not Reportable 09/29/18 05:00 Dimorphic RBCs Not Reportable 09/29/18 05:00 Polychromasia Not Reportable 09/29/18 05:00 Hypochromasia 1+ 09/29/18 05:00 Poikilocytosis Not Reportable 09/29/18 05:00 Anisocytosis 1+ 09/29/18 05:00 Microcytosis Not Reportable 09/29/18 05:00 Macrocytosis Rare 09/29/18 05:00 Spherocytes Not Reportable 09/29/18 05:00 Pappenheimer Bodies Not Reportable 09/29/18 05:00 Sickle Cells Not Reportable 09/29/18 05:00 Target Cells Few 09/29/18 05:00 Tear Drop Cells Not Reportable 09/29/18 05:00 Ovalocytes 2+ 09/29/18 05:00 Stomatocytes 1+ 09/29/18 05:00 Helmet Cells Not Reportable 09/29/18 05:00 [place] Bodies Not Reportable 09/29/18 05:00 [place] Rings Not Reportable 09/29/18 05:00 [place] Cells Not Reportable 09/29/18 05:00 Bite Cells Not Reportable 09/29/18 05:00 Crenated Cell Not Reportable 09/29/18 05:00 Elliptocytes Few 09/29/18 05:00 Acanthocytes (Spur) Not Reportable 09/29/18 05:00 Rouleaux Not Reportable 09/29/18 05:00 Hemoglobin C Crystals Not Reportable 09/29/18 05:00 Schistocytes Not Reportable 09/29/18 05:00 Malaria parasites Not Reportable 09/29/18 05:00 Kieran Bodies Not Reportable 09/29/18 05:00 Hem Pathologist Commnt No 09/29/18 05:00 PT 19.9 Sec. (12.2-14.9) H 09/21/18 15:00 INR 1.65 (0.87-1.13) H 09/21/18 15:00 APTT 40.9 Sec. (24.2-36.6) H 09/21/18 15:00 Heparin Anti-Xa Level 0.35 U.I./ml (0.3-0.7) 10/05/18 10:19 POC ABG pH 7.387 (7.35-7.45) 10/01/18 13:06 POC ABG pCO2 44.1 (35-45) 10/01/18 13:06 POC ABG pO2 83 (80-105) 10/01/18 13:06 POC ABG HCO3 26.5 10/01/18 13:06 POC ABG Total CO2 28 10/01/18 13:06 POC ABG O2 Sat 96 10/01/18 13:06 POC ABG Base Excess 2 10/01/18 13:06 FiO2 25 % 10/01/18 13:06 Sodium 141 mmol/L (137-145) 10/04/18 04:45 Potassium 3.8 mmol/L (3.6-5.0) 10/04/18 04:45 Chloride 106.5 mmol/L (98-107) 10/04/18 04:45 Carbon Dioxide 26 mmol/L (22-30) 10/04/18 04:45 Anion Gap 12 mmol/L 10/04/18 04:45 BUN 14 mg/dL (9-20) 10/04/18 04:45 Creatinine 0.7 mg/dL (0.8-1.5) L 10/04/18 04:45 Estimated GFR > 60 ml/min 10/04/18 04:45 BUN/Creatinine Ratio 20 % 10/04/18 04:45 Glucose 89 mg/dL (75-100) 10/04/18 04:45 POC Glucose 76 (70-105) 10/05/18 05:09 Lactic Acid 0.90 mmol/L (0.7-2.0) 09/11/18 20:17 Calcium 7.5 mg/dL (8.4-10.2) L 10/04/18 04:45 Phosphorus 3.10 mg/dL (2.5-4.5) D 09/27/18 04:11 Magnesium 1.40 mg/dL (1.7-2.3) L 10/03/18 13:23 Total Bilirubin < 0.20 mg/dL (0.1-1.2) 09/29/18 05:00 Direct Bilirubin < 0.2 mg/dL (0-0.2) 09/13/18 07:31 AST 69 units/L (5-40) H 09/29/18 05:00 ALT 110 units/L (7-56) H 09/29/18 05:00 Alkaline Phosphatase 60 units/L (35-129) 09/29/18 05:00 Ammonia 27.0 umol/L (25-60) 10/03/18 13:23 Total Creatine Kinase 685 units/L (55-170) H 09/21/18 04:25 CK-MB (CK-2) 3.5 ng/mL (0.0-4.0) 09/21/18 04:25 CK-MB (CK-2) Rel Index 0.5 (0-4) 09/21/18 04:25 NT-Pro-B Natriuret Pep 145.9 pg/mL (0-450) 09/18/18 16:07 Total Protein 5.2 g/dL (6.3-8.2) L 09/29/18 05:00 Albumin 1.9 g/dL (3.9-5) L 09/29/18 05:00 Albumin/Globulin Ratio 0.6 % 09/29/18 05:00 Vitamin B12 934.5 pg/mL (211-911) H 09/16/18 11:41 TSH 5.190 mlU/mL (0.270-4.200) H 09/18/18 12:46 Free T4 0.75 ng/dL (0.76-1.46) L 09/18/18 12:46 Urine Color [place] (Yellow) 09/11/18 Unknown Urine Turbidity Clear (Clear) 09/11/18 Unknown Urine pH 5.0 (5.0-7.0) 09/11/18 Unknown Ur Specific [place] 1.016 (1.003-1.030) 09/11/18 Unknown Urine Protein <15 mg/dl mg/dL (Negative) 09/11/18 Unknown Urine Glucose (UA) Neg mg/dL (Negative) 09/11/18 Unknown Urine Ketones Neg mg/dL (Negative) 09/11/18 Unknown Urine Blood Sm (Negative) 09/11/18 Unknown Urine Nitrite Neg (Negative) 09/11/18 Unknown Urine Bilirubin Neg (Negative) 09/11/18 Unknown Urine Urobilinogen < 2.0 mg/dL (<2.0) 09/11/18 Unknown Ur Leukocyte Esterase Neg (Negative) 09/11/18 Unknown Urine WBC (Auto) 1.0 /HPF (0.0-6.0) 09/11/18 Unknown Urine RBC (Auto) 3.0 /HPF (0.0-6.0) 09/11/18 Unknown Urine Mucus Few /HPF 09/11/18 Unknown CSF Appearance Clear 09/19/18 15:00 CSF Color Colorless 09/19/18 15:00 CSF WBC 4 /mm3 (1-10) 09/19/18 15:00 CSF RBC 583 /mm3 (0-0) 09/19/18 15:00 CSF Seg Neutrophils 21.4 % (0-6) 09/19/18 15:00 CSF Lymphocytes % 71.4 % (40-80) 09/19/18 15:00 CSF Reactive Lymphs 0 % 09/19/18 15:00 CSF Monocytes % 7.1 % (15-45) 09/19/18 15:00 CSF Eosinophils % 0 % 09/19/18 15:00 CSF Basophils 0 % 09/19/18 15:00 CSF Pathologist Review C 09/19/18 15:00 CSF Glucose 32 mg/dL 09/19/18 15:00 CSF Total Protein 123 mg/dL 09/19/18 15:00 CSF VDRL Reactive 1:4 (Nonreactive) H 09/19/18 15:00 Vancomycin Trough 14.3 ug/mL (5.0-20.0) 09/25/18 14:45 Urine Opiates Screen Presumptive negative 09/17/18 15:52 Urine Methadone Screen Presumptive negative 09/17/18 15:52 Ur Barbiturates Screen Presumptive negative 09/17/18 15:52 Ur Phencyclidine Scrn Presumptive negative 09/17/18 15:52 Ur Amphetamines Screen Presumptive negative 09/17/18 15:52 U Benzodiazepines Scrn Presumptive negative 09/17/18 15:52 Urine Cocaine Screen Presumptive negative 09/17/18 15:52 U Marijuana (THC) Screen Presumptive negative 09/17/18 15:52 Drugs of Abuse Note Disclamer 09/17/18 15:52 Lymph Enumerat CD4/CD8 0.01 (0.86-5.00) L 09/13/18 12:29 % CD3 Cells 71 % (57-85) 09/13/18 12:29 Absolute CD3 Count 220 cells/uL (840-3060) L 09/13/18 12:29 % CD4 Cells 1 % (30-61) L 09/13/18 12:29 Absolute CD4 Count 4 cells/uL (490-1740) L 09/13/18 12:29 % CD8 Cells 70 % (12-42) H 09/13/18 12:29 Absolute CD8 Count 216 cells/uL (180-1170) 09/13/18 12:29 % CD19 Cells 17 % (6-29) 09/13/18 12:29 Absolute CD19 Count 54 cells/uL (110-660) L 09/13/18 12:29 RPR Titer 1:16 09/13/18 12:29 RPR Reactive (Nonreactive) 09/13/18 12:29 T.pallidum Ab (FTA-ABS) Reactive (Nonreactive) H 09/14/18 16:34 C. difficile Toxin A&B Negative (Negative) 09/12/18 05:30 CMV DNA PCR log photostatic copy maker/mL See scanned result 09/26/18 06:15 Hepatitis A IgM Ab Non-reactive (NonReactive) 09/13/18 12:29 Hep Bs Antigen Non-reactive (Negative) 09/13/18 12:29 Hep B Core IgM Ab Non-reactive (NonReactive) 09/13/18 12:29 Hepatitis C Antibody Non-reactive (NonReactive) 09/13/18 12:29 HIV-1 Antibody See scanned result 09/11/18 19:14 HIV-1 RNA PCR copies/ml [id number] Copies/mL H 09/13/18 12:29 HIV-1 RNA (PCR) log 4.71 Log cps/mL H 09/13/18 12:29 HIV-2 Ab (Immunoblot) See scanned result 09/11/18 19:14 HIV 1&2 Antibody Rapid Reactive (Non React) 09/11/18 19:14 HIV P24 Antigen Non react (Non React) 09/11/18 19:14 Influenza A (Rapid) Negative (Negative) 09/13/18 16:05 Influenza A (RT-PCR) Negative (Negative) 09/13/18 16:05 Influenza B (Rapid) Negative (Negative) 09/13/18 16:05 Influenza B (RT-PCR) Negative (Negative) 09/13/18 16:05 Toxoplasma IgG Ab <7.20 IU/mL (<7.20) 09/16/18 12:09 Miscellaneous Test see below 09/21/18 03:55 Nutrition/Malnutrition Assess - Dietary Evaluation Nutrition/Malnutrition Findings: Nutrition Notes Start: 09/12/18 17:45 Freq: Status: Active Protocol: Document 10/04/18 10:02 CP (Rec: 10/04/18 10:31 CP [email or web address]) Co-Sign 10/04/18 10:02 LP Nutrition Notes Initial or Follow up Reassessment Current Diagnosis Acute Kidney Injury Sepsis Respiratory Failure Other Pertinent Diagnosis HIV, bilat pneu, gastroenteritis, encephalopathy Current Diet TF- Vital High Protein at 70ml /hr Labs/Tests Cr: 0.7 Pertinent Medications Reviewed Height 6 ft Weight 119.8 kg [place] Body Weight (kg) 80.90 BMI 35.8 Subjective/Other Information Observed TF running at goal ( 70 mL) Percent of energy/protein needs met: 93%/91% Burn Absent Trauma Absent #2 Nutrition Diagnosis Inadequate oral intake Diagnosis Progress(for reassessment Continues documentation) #1 Nutrition Diagnosis Malnutrition Diagnosis Progress(for reassessment Continues documentation) Is patient on ventilator? Yes Is Patient Ambulatory and/or Out of Bed No REE-([facility]-confined to bed) 2618.928 Kcal/Kg value to use for calculation 15 Approximate Energy Requirements Using 1797 kcal/Kg Additional Notes Pro needs 2g/kg IBW: 162g/day Fluid needs 1ml/kcal Nutrition Intervention Change Diet Order: Continue TF Nutrition Support: Vital HP at 70ml/hr Kcal 1,680 Protein (gm) 147 Fluid (mL) 1,404 Goal #1 Continue to meet at least 80% of PRO and kcal needs with TF. Follow-Up By: 10/07/18 Additional Comments F/U: TF tolerance
[2018-10-05] MEDS: HEPARIN SUB-Q SCH (14:33)
[2018-10-05] MEDS: DIFLUCAN PO SCH (14:33)
[2018-10-05] MEDS: TYLENOL PO PRN (14:48)
[2018-10-06] MEDS: PFIZERPEN 5 MIL.UNITS in NACL 0.9% 50 ML IV SCH ×6 (01:08→20:08)
[2018-10-06] MEDS: PEPCID PO SCH ×3 (01:09→21:48)
[2018-10-06] MEDS: ROBINUL PO SCH ×4 (01:09→21:38)
[2018-10-06] MEDS: HEPARIN SUB-Q SCH ×4 (01:10→21:39)
[2018-10-06] MEDS: MEPRON PO SCH ×3 (01:10→21:49)
[2018-10-06] MEDS: CORDARONE PO SCH ×3 (01:10→21:47)
[2018-10-06] MEDS: SODIUM CHLORIDE FLUSH SYRINGE 10 ML IV SCH ×3 (01:11→21:35)
[2018-10-06] MEDS: CYTOVENE 500 MG in NACL 0.9% 250ML 250 ML IV SCH ×2 (01:24→13:52)
[2018-10-06] MEDS: PROVENTIL IH SCH ×4 (02:15→19:29)
[2018-10-06] MEDS: LOPRESSOR IV SCH ×5 (03:31→21:35)
[2018-10-06] MEDS: SYNTHROID PO SCH (06:21)
--- NOTE | 2018-10-06 08:30 | Event Note ---
Date: 10/06/18 [id number]
--- NOTE | 2018-10-06 09:03 | Consultation ---
REFERRING PHYSICIAN: Dr. Suresh Owusu. REASON FOR CONSULTATION: Anemia, leukopenia and history of thrombocytopenia. HISTORY OF PRESENT ILLNESS: I saw the patient, a 33-year-old male in the ICU. The patient has a history of newly diagnosed HIV, who was admitted on 09/11/2017. He at this time is intubated. I reviewed the notes of the physician. Blood test showed low white cell count, on admission was 1.9, now it is 0.8. The patient is being treated for CMV. He is on ganciclovir. There is a mention of neurosyphilis. Hemoglobin is also low, at admission was normal at 13.6. The patient is intubated. REVIEW OF SYSTEMS: Not reliable. ID team is managing the patient for fevers. HAART has been started. Most of the information is from the chart. PAST MEDICAL HISTORY: None significant. SURGICAL HISTORY: None significant. SOCIAL HISTORY: Single, lives with family members. ALLERGIES: None. PRESENT MEDICATIONS: Include Tylenol, amiodarone, lipase, Mepron, Zithromax, Emtriva, Diflucan, ganciclovir, levothyroxine. PHYSICAL EXAMINATION: VITAL SIGNS: Temperature 99, pulse 91, respirations 24, BP 130/77. HEENT: Pallor present. No icterus. The patient opens eyes, but not responding. Intubated. HEART: S1, S2. LUNGS: Decreased air entry anteriorly. ABDOMEN: Soft. EXTREMITIES: The patient has leg edema. NEUROLOGICAL: Not available because of the patient's mentation. LABORATORY DATA: White cells 0.8, hemoglobin 9, MCV 88, platelet 167, neutrophils 0.5, potassium 3.8, creatinine 0.7. RADIOLOGY: CT chest was done on 09/19/2018 and after that chest x-rays ____ ASSESSMENT AND PLAN: 1. Leukopenia. ANC is 0.5. Neutropenic precaution is practical. 2. Anemia. We will investigate. 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 HAART has been started. At this time, there is no fever. 3. Human immunodeficiency virus, on HAART. 4. 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 5. Intubated. 6. On antibiotics for pneumonia. 7. History of ____ that is improved. 8. Looks at you, but does not communicate. 9. History of oral candidiasis. 10. Mention of giardiasis. 11. Encephalopathy. 12. RVR with atrial fibrillation. I will follow the patient during inpatient stay. At this time, his cytopenia is likely secondary to the HIV or the CMV. I will discuss with ID team to see if G-CSF support is an option. JOB# [id number] NM/NTS
[2018-10-06] MEDS: DIFLUCAN PO SCH (09:22)
[2018-10-06] MEDS: VIREAD PO SCH (09:23)
[2018-10-06] MEDS: EMTRIVA PO SCH (09:23)
[2018-10-06] MEDS: TIVICAY PO SCH (09:23)
--- NOTE | 2018-10-06 10:01 | Progress Note ---
Assessment and Plan Cultures: 09/11/2018 blood culture: no growth 09/13/2018 serum cryptococcus ag neg 09/14/2018 CSF cryptococcus ag neg 09/14/2018 stool Nona 09/15/2018 stool +Giardia ag 09/19/2018 CSF cryptococcus ag neg 09/21/2018 tracheal aspirate culture: Nona albicans 09/23/2018 blood culture: No growth 09/23/2018 Fungal blood culture: no growth thus far A/P: 33 y/o male with no PMH; admitted on 09/11/2018 due to 4 days-AMS/behavioral changes, nausea, vomiting, diarrhea, weight loss and cough: 1) Low grade fevers: shock resolved. ?HIV related, v/s CMV related. Fevers have also resolved since initiation of HAART. Cultures have negative thus far. Completed 10 days of Ceftriaxone, off since 10/03/2018. 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 WBC remains low could be from CMV v/s ganciclovir. Called lab and spoke to slabber, F/U CMV DNA PCR 09/26/2018 is 710K, 5.85 log. Generally, we do not a significant change in the log value in the first week. Repeat CMV PCR 10/03/2018 pending. 3) Acute respiratory failure: still on the vent, mainly due to mental status issues. PJP DFA negative. CXR stable without pneumonia. 4) Acute encephalopathy: possibly from neurosyphilis v/s CMV encephalitis v/s metabolic etiology. Of note, MRI did not show ventriculitis. CSF YAYO virus DNA PC R neg. Toxo IgG negative. Hypernatremia improved. Consider neurology consult given persistent encephalopathy. 5) Neurosyphilis: CSF VDRL positive, off Ceftriaxone and back on IV Penicillin (will complete 21 days). 6) Diarrhea: likely due to Giardiasis as Giardia antigen positive in stool, in immunocompromised patient. Completed several days of Flagyl, stopped on 10/03/2018. 7) Oral candidiasis: on fluconazole, will need to continue as prophylaxis till immune reconstitution. 8) A.fib: cardiology following. On Amiodarone. 9) HIV/AIDS: newly diagnosed. Risk factor is MSM behavior. CD4=4. VL=50,700. 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 We started him on Tenofovir, Emtricitabine + Dolutegravir on 09/30/2018, watch closely for IRIS. 10) Neutropenia: likely from HIV/CMV myelosuppression. Also probably worse from ganciclovir. r/o disseminated MAC, thus far cultures negative. s/p neupogen 1 dose on 10/05/2018 11) MAL: resolved. creatinine stable and improved. Recs: - continue IV Penicillin G 24 million units daily () - F/U CMV DNA PCR 10/03/2018 and check weekly - continue IV Ganciclovir 5 mg/kg q12 hrs, continue till CMV PCR is <200 - continue atovaquone and azithromycin prophylaxis - continue fluconazole 200 mg daily PO as prophylaxis - continue HAART: Tenofovir, Emtricitabine + Dolutegravir watch closely for IRIS - monitor daily CBC, BMP - s/p neupogen 1 dose on 10/05/2018, hematology on board now, agree with additional Neupogen as needed from ID standpoint - awaiting neurology consult for persistent acute encephalopathy. Patient seems to have some nystagmus when awakened - CBC and CMP ordered for tomorrow Dr. Strickland rounding tomorrow Maurizio Lopez MD [facility], [place], [facility] C: [phone] O: [phone] F: [phone] Subjective Date of service: 10/06/18 Principal diagnosis: Severe sepsis; Ac hypoxemic Resp failure; [place]. Pneumonia; Ac encephalopathy Interval history: Low grade temp. No other issues. Stable on vent. Can be awakened, but doesn't fo llow commands Objective - Exam Narrative Exam: Physical Exam: Constitutional: intubated, on the event, awake but doesn't follow any commands Head, Ears, Nose: Normocephalic, atraumatic. Eyes: Conjunctivae/corneas clear. No icterus. No ptosis. Neck: Supple, no meningeal signs Oral: intubated. Cardiovascular: S1, S2 normal. Respiratory: Good air entry, clear to auscultation bilaterally GI: Soft, bowel sounds normal. No peritoneal signs, Rectal tube + with minimal diarrhea Musculoskeletal: No pedal edema, no cyanosis. Skin: No rash or abscess Hem/Lymphatic: No palpable cervical or supraclavicular nodes. No lymphangitis Psych: calm, without agitation Neurological: intubated, on the vent, awake, but doesn't follow commands. Nystagmus + - Constitutional Vitals: Vital Signs Temp Pulse Resp BP Pulse Ox 99.8 F H 91 H 18 121/72 100 10/06/18 04:00 10/06/18 09:24 10/06/18 09:18 10/06/18 09:24 10/06/18 09:00 Temperature -Last 24 Hours Temperature 99.8 F Temperature 98.8 F Temperature 99.0 F Temperature 100.0 F Temperature 99.8 F - Labs CBC & Chem 7: 10/04/18 04:45 10/04/18 04:45
[2018-10-06 11:04] LABS: Iron 35 ug/dL (49-181); Total Iron Binding Capacity 157 mcg/dL (250-450)
--- NOTE | 2018-10-06 11:29 | Progress Note ---
Assessment and Plan Assessment and plan: Severe Sepsis. Etiology secondary to bacterial pneumonia +/- gastroenteritis with newly diagnosed with HIV. Fevers have also resolved since initiation of HAART. Cultures have negative thus far. Completed 10 days of Ceftriaxone, off since 10/03/2018. Acute hypoxemic respiratory failure. Etiology mostly secondary to mental status issues. Pulm following Disseminated CMV viremia: continue IV Ganciclovir 5 mg/kg q12 hrs, continue till CMV PCR is <200 Toxic metabolic encephalopathy. 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 Of note, MRI did not show ventriculitis. Ne urology re-consultation. A. fib with RVR. Converted to NSR. cont Amiodarone Cont Heparin drip. Neurosyphilis: CSF VDRL positive, off Ceftriaxone and back on IV Penicillin (will complete 21 days). Diarrhea. Resolved, etiology likely secondary to Giardia. Giardia antigen positive in stool. Completed several days of Flagyl. Oral candidiasis. Fluconazole HIV/AIDS. New Diagnosis. Started on HAART on 09/30, Tenofovir, Emtricitabine + Dolutegravir watch closely for IRIS continue atovaquone and azithromycin prophylaxis Neutropenia. 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 Also probably worse from ganciclovir. r/o disseminated MAC, thus far cultures negative. Hematology followed MAL. Resolved Prognosis is guarded. For Trach and PEG. Surg consulted The high probability of a clinically significant, sudden or life threatening deterioration of the [neurological, respiratory and cardiac] system(s) required my full and direct attention, intervention and personal management. The aggregate critical care time was [31] minutes. This time is in addition to time spent performing reported procedures but includes the following: [x] Data Review and interpretation [x] Patient assessment and monitoring of vital signs [x] Documentation [x] Medication orders and management History Interval history: Patient is 33 yo initially presented with diarrhea, found to have pneumonia, sepsis, HIV/AIDS(new diagnosis) with CD4 count of 4. He was started on abx for PJP. His mental status has worsened with confusion, lethargy. LP done . He was diagnosed with neurosyphilis. Started on Penicillin. Closest family is sister in [place], and dr. Baltazar spoke to her several times about diagnosis but did not tell her about HIV/AIDS because of patient confidentiality. The patient decompensated on 09/20/18 with acute hypoxemic respiratory failure and worsening toxic metabolic encephalopathy requiring transfer to ICU and intubation. He now remains on mechanical ventilation. The patient was also noted to develop SVT requiring amiodarone drip as well as heparin drip. Hospitalist Physical - Constitutional Vitals: Temp Pulse Resp BP Pulse Ox 99.8 F H 91 H 18 121/72 100 10/06/18 04:00 10/06/18 09:24 10/06/18 09:18 10/06/18 09:24 10/06/18 09:00 General appearance: Present: other (orally intubated) - EENT Eyes: Present: PERRL, EOM intact ENT: hearing intact, clear oral mucosa, dentition normal - Neck Neck: Present: supple, normal ROM - Respiratory Respiratory effort: normal Respiratory: bilateral: diminished, rhonchi, wheezing - Cardiovascular Rhythm: regular Heart Sounds: Present: S1 & S2. Absent: gallop, rub - Extremities Extremities: no ischemia, No edema, Full ROM - Abdominal General gastrointestinal: soft, non-tender, non-distended, normal bowel sounds - Integumentary Integumentary: Present: clear, warm, dry - Neurologic Neurologic: other (unresponsive and encephalopathic) Results - Labs CBC & Chem 7: 10/04/18 04:45 10/04/18 04:45 Labs: Laboratory Last Values WBC 0.8 K/mm3 (4.5-11.0) L* 10/04/18 04:45 RBC 3.11 M/mm3 (3.65-5.03) L 10/04/18 04:45 Hgb 9.0 gm/dl (11.8-15.2) L 10/04/18 04:45 Hct 27.4 % (35.5-45.6) L 10/04/18 04:45 MCV 88 fl (84-94) 10/04/18 04:45 MCH 29 pg (28-32) 10/04/18 04:45 MCHC 33 % (32-34) 10/04/18 04:45 RDW 15.4 % (13.2-15.2) H 10/04/18 04:45 Plt Count 167 K/mm3 (140-440) 10/04/18 04:45 Jessamine % (Auto) Solder Making Laborer 09/29/18 05:00 Baso % (Auto) S[employer] Making Laborer 09/29/18 05:00 Add Manual Diff Complete 09/29/18 05:00 Total Counted 25 09/29/18 05:00 Seg Neutrophils % S[employer] Making Laborer 09/29/18 05:00 Seg Neuts % (Manual) 40.0 % (40.0-70.0) 09/29/18 05:00 Band Neutrophils % 4.0 % 09/29/18 05:00 Lymphocytes % (Manual) 28.0 % (13.4-35.0) 09/29/18 05:00 Reactive Lymphs % (Man) 0 % 09/29/18 05:00 Monocytes % (Manual) 16.0 % (0.0-7.3) H 09/29/18 05:00 Eosinophils % (Manual) 0 % (0.0-4.3) 09/29/18 05:00 Basophils % (Manual) 0 % (0.0-1.8) 09/29/18 05:00 Metamyelocytes % 8.0 % 09/29/18 05:00 Myelocytes % 0 % 09/29/18 05:00 Promyelocytes % 4.0 % 09/29/18 05:00 Blast Cells % 0 % 09/29/18 05:00 Nucleated RBC % 4.0 % (0.0-0.9) H 09/29/18 05:00 Seg Neutrophils # Man 0.5 K/mm3 (1.8-7.7) L 09/29/18 05:00 Band Neutrophils # 0.0 K/mm3 09/29/18 05:00 Abs Lymphs (Manual) 309 cells/uL (850-3900) L 09/13/18 12:29 Lymphocytes # (Manual) 0.3 K/mm3 (1.2-5.4) L 09/29/18 05:00 Abs React Lymphs (Man) 0.0 K/mm3 09/29/18 05:00 Monocytes # (Manual) 0.2 K/mm3 (0.0-0.8) 09/29/18 05:00 Eosinophils # (Manual) 0.0 K/mm3 (0.0-0.4) 09/29/18 05:00 Basophils # (Manual) 0.0 K/mm3 (0.0-0.1) 09/29/18 05:00 Metamyelocytes # 0.1 K/mm3 09/29/18 05:00 Myelocytes # 0.0 K/mm3 09/29/18 05:00 Promyelocytes # 0.0 K/mm3 09/29/18 05:00 Blast Cells # 0.0 K/mm3 09/29/18 05:00 WBC Morphology Not Reportable 09/29/18 05:00 Hypersegmented Neuts Not Reportable 09/29/18 05:00 Hyposegmented Neuts Not Reportable 09/29/18 05:00 Hypogranular Neuts Not Reportable 09/29/18 05:00 Smudge Cells Not Reportable 09/29/18 05:00 Toxic Granulation Not Reportable 09/29/18 05:00 Toxic Vacuolation Not Reportable 09/29/18 05:00 Dohle Bodies Not Reportable 09/29/18 05:00 Pelger-Huet Anomaly Not Reportable 09/29/18 05:00 Giovanna Rods Not Reportable 09/29/18 05:00 Platelet Estimate Appears normal 09/29/18 05:00 Clumped Platelets Not Reportable 09/29/18 05:00 Plt Clumps, EDTA Not Reportable 09/29/18 05:00 Large Platelets Few 09/29/18 05:00 Giant Platelets Not Reportable 09/29/18 05:00 Platelet Satelliting Not Reportable 09/29/18 05:00 Plt Morphology Comment Not Reportable 09/29/18 05:00 RBC Morphology Not Reportable 09/29/18 05:00 Dimorphic RBCs Not Reportable 09/29/18 05:00 Polychromasia Not Reportable 09/29/18 05:00 Hypochromasia 1+ 09/29/18 05:00 Poikilocytosis Not Reportable 09/29/18 05:00 Anisocytosis 1+ 09/29/18 05:00 Microcytosis Not Reportable 09/29/18 05:00 Macrocytosis Rare 09/29/18 05:00 Spherocytes Not Reportable 09/29/18 05:00 Pappenheimer Bodies Not Reportable 09/29/18 05:00 Sickle Cells Not Reportable 09/29/18 05:00 Target Cells Few 09/29/18 05:00 Tear Drop Cells Not Reportable 09/29/18 05:00 Ovalocytes 2+ 09/29/18 05:00 Stomatocytes 1+ 09/29/18 05:00 Helmet Cells Not Reportable 09/29/18 05:00 [place] Bodies Not Reportable 09/29/18 05:00 [place] Rings Not Reportable 09/29/18 05:00 [place] Cells Not Reportable 09/29/18 05:00 Bite Cells Not Reportable 09/29/18 05:00 Crenated Cell Not Reportable 09/29/18 05:00 Elliptocytes Few 09/29/18 05:00 Acanthocytes (Spur) Not Reportable 09/29/18 05:00 Rouleaux Not Reportable 09/29/18 05:00 Hemoglobin C Crystals Not Reportable 09/29/18 05:00 Schistocytes Not Reportable 09/29/18 05:00 Malaria parasites Not Reportable 09/29/18 05:00 Kieran Bodies Not Reportable 09/29/18 05:00 Hem Pathologist Commnt No 09/29/18 05:00 PT 19.9 Sec. (12.2-14.9) H 09/21/18 15:00 INR 1.65 (0.87-1.13) H 09/21/18 15:00 APTT 40.9 Sec. (24.2-36.6) H 09/21/18 15:00 Heparin Anti-Xa Level 0.35 U.I./ml (0.3-0.7) 10/05/18 10:19 POC ABG pH 7.387 (7.35-7.45) 10/01/18 13:06 POC ABG pCO2 44.1 (35-45) 10/01/18 13:06 POC ABG pO2 83 (80-105) 10/01/18 13:06 POC ABG HCO3 26.5 10/01/18 13:06 POC ABG Total CO2 28 10/01/18 13:06 POC ABG O2 Sat 96 10/01/18 13:06 POC ABG Base Excess 2 10/01/18 13:06 FiO2 25 % 10/01/18 13:06 Sodium 141 mmol/L (137-145) 10/04/18 04:45 Potassium 3.8 mmol/L (3.6-5.0) 10/04/18 04:45 Chloride 106.5 mmol/L (98-107) 10/04/18 04:45 Carbon Dioxide 26 mmol/L (22-30) 10/04/18 04:45 Anion Gap 12 mmol/L 10/04/18 04:45 BUN 14 mg/dL (9-20) 10/04/18 04:45 Creatinine 0.7 mg/dL (0.8-1.5) L 10/04/18 04:45 Estimated GFR > 60 ml/min 10/04/18 04:45 BUN/Creatinine Ratio 20 % 10/04/18 04:45 Glucose 89 mg/dL (75-100) 10/04/18 04:45 POC Glucose 97 (70-105) 10/06/18 05:15 Lactic Acid 0.90 mmol/L (0.7-2.0) 09/11/18 20:17 Calcium 7.5 mg/dL (8.4-10.2) L 10/04/18 04:45 Phosphorus 3.10 mg/dL (2.5-4.5) D 09/27/18 04:11 Magnesium 1.40 mg/dL (1.7-2.3) L 10/03/18 13:23 Iron 35 ug/dL (49-181) L 10/06/18 09:40 TIBC 157 mcg/dL (250-450) L 10/06/18 09:40 Ferritin 1126.0 ng/mL (13.0-400.0) H 10/06/18 09:40 Total Bilirubin < 0.20 mg/dL (0.1-1.2) 09/29/18 05:00 Direct Bilirubin < 0.2 mg/dL (0-0.2) 09/13/18 07:31 AST 69 units/L (5-40) H 09/29/18 05:00 ALT 110 units/L (7-56) H 09/29/18 05:00 Alkaline Phosphatase 60 units/L (35-129) 09/29/18 05:00 Ammonia 27.0 umol/L (25-60) 10/03/18 13:23 Total Creatine Kinase 685 units/L (55-170) H 09/21/18 04:25 CK-MB (CK-2) 3.5 ng/mL (0.0-4.0) 09/21/18 04:25 CK-MB (CK-2) Rel Index 0.5 (0-4) 09/21/18 04:25 NT-Pro-B Natriuret Pep 145.9 pg/mL (0-450) 09/18/18 16:07 Total Protein 5.2 g/dL (6.3-8.2) L 09/29/18 05:00 Albumin 1.9 g/dL (3.9-5) L 09/29/18 05:00 Albumin/Globulin Ratio 0.6 % 09/29/18 05:00 Vitamin B12 934.5 pg/mL (211-911) H 09/16/18 11:41 Folate 6.71 ng/mL (7.3-26.0) L 10/06/18 09:40 TSH 5.190 mlU/mL (0.270-4.200) H 09/18/18 12:46 Free T4 0.75 ng/dL (0.76-1.46) L 09/18/18 12:46 Urine Color [place] (Yellow) 09/11/18 Unknown Urine Turbidity Clear (Clear) 09/11/18 Unknown Urine pH 5.0 (5.0-7.0) 09/11/18 Unknown Ur Specific [place] 1.016 (1.003-1.030) 09/11/18 Unknown Urine Protein <15 mg/dl mg/dL (Negative) 09/11/18 Unknown Urine Glucose (UA) Neg mg/dL (Negative) 09/11/18 Unknown Urine Ketones Neg mg/dL (Negative) 09/11/18 Unknown Urine Blood Sm (Negative) 09/11/18 Unknown Urine Nitrite Neg (Negative) 09/11/18 Unknown Urine Bilirubin Neg (Negative) 09/11/18 Unknown Urine Urobilinogen < 2.0 mg/dL (<2.0) 09/11/18 Unknown Ur Leukocyte Esterase Neg (Negative) 09/11/18 Unknown Urine WBC (Auto) 1.0 /HPF (0.0-6.0) 09/11/18 Unknown Urine RBC (Auto) 3.0 /HPF (0.0-6.0) 09/11/18 Unknown Urine Mucus Few /HPF 09/11/18 Unknown CSF Appearance Clear 09/19/18 15:00 CSF Color Colorless 09/19/18 15:00 CSF WBC 4 /mm3 (1-10) 09/19/18 15:00 CSF RBC 583 /mm3 (0-0) 09/19/18 15:00 CSF Seg Neutrophils 21.4 % (0-6) 09/19/18 15:00 CSF Lymphocytes % 71.4 % (40-80) 09/19/18 15:00 CSF Reactive Lymphs 0 % 09/19/18 15:00 CSF Monocytes % 7.1 % (15-45) 09/19/18 15:00 CSF Eosinophils % 0 % 09/19/18 15:00 CSF Basophils 0 % 09/19/18 15:00 CSF Pathologist Review C 09/19/18 15:00 CSF Glucose 32 mg/dL 09/19/18 15:00 CSF Total Protein 123 mg/dL 09/19/18 15:00 CSF VDRL Reactive 1:4 (Nonreactive) H 09/19/18 15:00 Vancomycin Trough 14.3 ug/mL (5.0-20.0) 09/25/18 14:45 Urine Opiates Screen Presumptive negative 09/17/18 15:52 Urine Methadone Screen Presumptive negative 09/17/18 15:52 Ur Barbiturates Screen Presumptive negative 09/17/18 15:52 Ur Phencyclidine Scrn Presumptive negative 09/17/18 15:52 Ur Amphetamines Screen Presumptive negative 09/17/18 15:52 U Benzodiazepines Scrn Presumptive negative 09/17/18 15:52 Urine Cocaine Screen Presumptive negative 09/17/18 15:52 U Marijuana (THC) Screen Presumptive negative 09/17/18 15:52 Drugs of Abuse Note Disclamer 09/17/18 15:52 Lymph Enumerat CD4/CD8 0.01 (0.86-5.00) L 09/13/18 12:29 % CD3 Cells 71 % (57-85) 09/13/18 12:29 Absolute CD3 Count 220 cells/uL (840-3060) L 09/13/18 12:29 % CD4 Cells 1 % (30-61) L 09/13/18 12:29 Absolute CD4 Count 4 cells/uL (490-1740) L 09/13/18 12:29 % CD8 Cells 70 % (12-42) H 09/13/18 12:29 Absolute CD8 Count 216 cells/uL (180-1170) 09/13/18 12:29 % CD19 Cells 17 % (6-29) 09/13/18 12:29 Absolute CD19 Count 54 cells/uL (110-660) L 09/13/18 12:29 RPR Titer 1:16 09/13/18 12:29 RPR Reactive (Nonreactive) 09/13/18 12:29 T.pallidum Ab (FTA-ABS) Reactive (Nonreactive) H 09/14/18 16:34 C. difficile Toxin A&B Negative (Negative) 09/12/18 05:30 CMV DNA PCR log copper plate printer/mL See scanned result 09/26/18 06:15 Hepatitis A IgM Ab Non-reactive (NonReactive) 09/13/18 12:29 Hep Bs Antigen Non-reactive (Negative) 09/13/18 12:29 Hep B Core IgM Ab Non-reactive (NonReactive) 09/13/18 12:29 Hepatitis C Antibody Non-reactive (NonReactive) 09/13/18 12:29 HIV-1 Antibody See scanned result 09/11/18 19:14 HIV-1 RNA PCR copies/ml 22398 Copies/mL H 09/13/18 12:29 HIV-1 RNA (PCR) log 4.71 Log cps/mL H 09/13/18 12:29 HIV-2 Ab (Immunoblot) See scanned result 09/11/18 19:14 HIV 1&2 Antibody Rapid Reactive (Non React) 09/11/18 19:14 HIV P24 Antigen Non react (Non React) 09/11/18 19:14 Influenza A (Rapid) Negative (Negative) 09/13/18 16:05 Influenza A (RT-PCR) Negative (Negative) 09/13/18 16:05 Influenza B (Rapid) Negative (Negative) 09/13/18 16:05 Influenza B (RT-PCR) Negative (Negative) 09/13/18 16:05 Toxoplasma IgG Ab <7.20 IU/mL (<7.20) 09/16/18 12:09 Miscellaneous Test see below 09/21/18 03:55 Nutrition/Malnutrition Assess - Dietary Evaluation Nutrition/Malnutrition Findings: Nutrition Notes Start: 09/12/18 17:45 Freq: Status: Active Protocol: Document 10/04/18 10:02 CP (Rec: 10/04/18 10:31 CP [email or web address]) Co-Sign 10/04/18 10:02 LP Nutrition Notes Initial or Follow up Reassessment Current Diagnosis Acute Kidney Injury Sepsis Respiratory Failure Other Pertinent Diagnosis HIV, bilat pneu, gastroenteritis, encephalopathy Current Diet TF- Vital High Protein at 70ml /hr Labs/Tests Cr: 0.7 Pertinent Medications Reviewed Height 6 ft Weight 119.8 kg [place] Body Weight (kg) 80.90 BMI 35.8 Subjective/Other Information Observed TF running at goal ( 70 mL) Percent of energy/protein needs met: 93%/91% Burn Absent Trauma Absent #2 Nutrition Diagnosis Inadequate oral intake Diagnosis Progress(for reassessment Continues documentation) #1 Nutrition Diagnosis Malnutrition Diagnosis Progress(for reassessment Continues documentation) Is patient on ventilator? Yes Is Patient Ambulatory and/or Out of Bed No REE-([place]-confined to bed) 2618.928 Kcal/Kg value to use for calculation 15 Approximate Energy Requirements Using 1797 kcal/Kg Additional Notes Pro needs 2g/kg IBW: 162g/day Fluid needs 1ml/kcal Nutrition Intervention Change Diet Order: Continue TF Nutrition Support: Vital HP at 70ml/hr Kcal 1,680 Protein (gm) 147 Fluid (mL) 1,404 Goal #1 Continue to meet at least 80% of PRO and kcal needs with TF. Follow-Up By: 10/07/18 Additional Comments F/U: TF tolerance
[2018-10-06] MEDS: TRANSDERM-SCOP TD SCH (19:01)
--- NOTE | 2018-10-06 19:38 | Progress Note ---
Assessment and Plan Impression: 1. Neurosyphilis 2. HIV Plan: 1. Please ask ID specialist what the timing of improvement might be for his conditions with current treatment. I would guess this could take months. 2. Could any sedating meds be changed or removed? For example, could he do well enough on glycopyrrolate and not need Scopolamine which can be very sedating? Does he have to be on amiodarone or could something less sedating be given? 30 minutes critical care time spent with this patient. Signing off, call for any questions. Subjective Date of service: 10/06/18 Principal diagnosis: Severe sepsis; Ac hypoxemic Resp failure; [place]. Pneumonia; Ac encephalopathy Interval history: This 33 year old male is seen in f/u for encephalopathy. Yesterday's EEG shows slowing in the theta range frontotemporally but review of prior EEG of 09/19/18 shows at times slowing in the left frontocentral and left frontotemporal region. No epileptiform activity was seen on either tracing. No clinical changes. Objective - Exam Narrative Exam: General appearance: well developed but obese (per BMI) early 30's male in [facility], intubated. Neurologic Exam: On exam does not answer orientation questions, tracks me to the left with some horizontal nystagmus and has vertical nystagmus with vertical doll's eyes (though minimal eye motion) and has decreased right lateral excursion on horizontal doll's. Somewhat sluggish right pupil compared to left to light. He grimaces on the right to supraorbital pressure but not on the left. 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 Will not hold up either arm when placed there. No withdrawal of either upper extremity to nailbed pressure or supraorbital pressure or chest or neck skin pinch. Withdraws right than left lower extremity to plantar rub but no withdrawal to supraorbital pressure or chest or neck skin pinch. No wiggling of toes or feet to command. l. - Vital Sign Vital Signs - 12hr 10/06/18 10/06/18 10/06/18 08:00 08:30 09:00 Temperature Pulse Rate 97 H 96 H 87 Pulse Rate [ Throughout] Respiratory 19 21 16 Rate Respiratory Rate [ Throughout] Blood Pressure 124/66 125/67 121/72 O2 Sat by Pulse 100 100 100 Oximetry 10/06/18 10/06/18 10/06/18 09:06 09:18 09:24 Temperature Pulse Rate 91 H Pulse Rate [ 88 86 Throughout] Respiratory Rate Respiratory 20 18 Rate [ Throughout] Blood Pressure 121/72 O2 Sat by Pulse Oximetry 10/06/18 10/06/18 10/06/18 09:30 10:00 10:30 Temperature Pulse Rate 85 89 95 H Pulse Rate [ Throughout] Respiratory 17 20 21 Rate Respiratory Rate [ Throughout] Blood Pressure 122/71 124/70 121/72 O2 Sat by Pulse 100 100 100 Oximetry 10/06/18 10/06/18 10/06/18 11:00 11:30 12:49 Temperature Pulse Rate 90 92 H 89 Pulse Rate [ Throughout] Respiratory 20 21 17 Rate Respiratory Rate [ Throughout] Blood Pressure 131/67 131/67 125/70 O2 Sat by Pulse 100 100 100 Oximetry 10/06/18 10/06/18 10/06/18 14:34 14:50 16:15 Temperature Pulse Rate 96 H 87 Pulse Rate [ 100 H 96 H Throughout] Respiratory Rate Respiratory 20 26 H Rate [ Throughout] Blood Pressure 128/73 119/66 O2 Sat by Pulse 99 Oximetry 10/06/18 10/06/18 10/06/18 17:04 19:24 19:29 Temperature 98.8 F Pulse Rate 87 Pulse Rate [ 97 H Throughout] Respiratory Rate Respiratory 18 Rate [ Throughout] Blood Pressure 119/68 O2 Sat by Pulse 100 Oximetry 10/06/18 19:30 Temperature Pulse Rate 97 H Pulse Rate [ Throughout] Respiratory Rate Respiratory Rate [ Throughout] Blood Pressure 122/67 O2 Sat by Pulse 100 Oximetry - Laboratory Findings CBC and BMP: 10/04/18 04:45 10/04/18 04:45 Abnormal Lab Findings: Abnormal Labs 09/11/18 09/11/18 09/11/18 18:00 18:00 18:00 WBC 1.9 L* RBC Hgb Hct RDW Plt Count 130 L Seg Neuts % (Manual) Lymphocytes % (Manual) Monocytes % (Manual) 16.0 H Eosinophils % (Manual) Basophils % (Manual) Nucleated RBC % Seg Neutrophils # Man 0.9 L Abs Lymphs (Manual) Lymphocytes # (Manual) 0.5 L PT INR APTT Heparin Anti-Xa Level POC ABG pH POC ABG pCO2 POC ABG pO2 Sodium 131 L Potassium Chloride Carbon Dioxide 17 L BUN 21 H Creatinine Glucose 126 H POC Glucose Lactic Acid 2.60 H* Calcium 8.1 L Phosphorus Magnesium Iron TIBC Ferritin AST 123 H ALT 115 H Total Creatine Kinase Total Protein Albumin 3.0 L Vitamin B12 Folate TSH Free T4 CSF VDRL Lymph Enumerat CD4/CD8 Absolute CD3 Count % CD4 Cells Absolute CD4 Count % CD8 Cells Absolute CD19 Count T.pallidum Ab (FTA-ABS) HIV-1 RNA PCR copies/ml HIV-1 RNA (PCR) log Miscellaneous Test 09/11/18 09/13/18 09/13/18 19:01 04:28 07:31 WBC 2.0 L RBC Hgb Hct RDW Plt Count 116 L Seg Neuts % (Manual) Lymphocytes % (Manual) Monocytes % (Manual) 8.0 H Eosinophils % (Manual) Basophils % (Manual) Nucleated RBC % Seg Neutrophils # Man 1.0 L Abs Lymphs (Manual) Lymphocytes # (Manual) 0.5 L PT INR APTT Heparin Anti-Xa Level POC ABG pH POC ABG pCO2 POC ABG pO2 Sodium Potassium Chloride 110.4 H Carbon Dioxide 19 L BUN Creatinine Glucose POC Glucose Lactic Acid 3.70 H* Calcium 7.9 L Phosphorus Magnesium Iron TIBC Ferritin AST ALT Total Creatine Kinase Total Protein Albumin Vitamin B12 Folate TSH Free T4 CSF VDRL Lymph Enumerat CD4/CD8 Absolute CD3 Count % CD4 Cells Absolute CD4 Count % CD8 Cells Absolute CD19 Count T.pallidum Ab (FTA-ABS) HIV-1 RNA PCR copies/ml HIV-1 RNA (PCR) log Miscellaneous Test 09/13/18 09/13/18 09/13/18 07:31 12:29 12:29 WBC RBC Hgb Hct RDW Plt Count Seg Neuts % (Manual) Lymphocytes % (Manual) Monocytes % (Manual) Eosinophils % (Manual) Basophils % (Manual) Nucleated RBC % Seg Neutrophils # Man Abs Lymphs (Manual) 309 L Lymphocytes # (Manual) PT INR APTT Heparin Anti-Xa Level POC ABG pH POC ABG pCO2 POC ABG pO2 Sodium Potassium Chloride Carbon Dioxide BUN Creatinine Glucose POC Glucose Lactic Acid Calcium Phosphorus Magnesium Iron TIBC Ferritin AST 70 H ALT 68 H Total Creatine Kinase Total Protein Albumin 2.5 L Vitamin B12 Folate TSH Free T4 CSF VDRL Lymph Enumerat CD4/CD8 0.01 L Absolute CD3 Count 220 L % CD4 Cells 1 L Absolute CD4 Count 4 L % CD8 Cells 70 H Absolute CD19 Count 54 L T.pallidum Ab (FTA-ABS) HIV-1 RNA PCR copies/ml 94425 H HIV-1 RNA (PCR) log 4.71 H Miscellaneous Test 09/13/18 09/14/18 09/14/18 12:29 07:17 16:34 WBC RBC Hgb Hct RDW Plt Count Seg Neuts % (Manual) Lymphocytes % (Manual) Monocytes % (Manual) Eosinophils % (Manual) Basophils % (Manual) Nucleated RBC % Seg Neutrophils # Man Abs Lymphs (Manual) Lymphocytes # (Manual) PT INR APTT Heparin Anti-Xa Level POC ABG pH POC ABG pCO2 POC ABG pO2 Sodium Potassium 3.4 L Chloride Carbon Dioxide 18 L BUN Creatinine Glucose 104 H POC Glucose Lactic Acid Calcium 7.6 L Phosphorus Magnesium Iron TIBC Ferritin AST 49 H ALT Total Creatine Kinase Total Protein Albumin 2.5 L Vitamin B12 Folate TSH Free T4 CSF VDRL Lymph Enumerat CD4/CD8 Absolute CD3 Count % CD4 Cells Absolute CD4 Count % CD8 Cells Absolute CD19 Count T.pallidum Ab (FTA-ABS) Reactive H HIV-1 RNA PCR copies/ml HIV-1 RNA (PCR) log Miscellaneous Test Flexitest 1 H 09/15/18 09/15/18 09/15/18 05:05 05:05 Unknown WBC 1.6 L* RBC Hgb 10.4 L Hct 31.1 L D RDW Plt Count 113 L Seg Neuts % (Manual) Lymphocytes % (Manual) Monocytes % (Manual) Eosinophils % (Manual) Basophils % (Manual) Nucleated RBC % Seg Neutrophils # Man Abs Lymphs (Manual) Lymphocytes # (Manual) PT INR APTT Heparin Anti-Xa Level POC ABG pH POC ABG pCO2 POC ABG pO2 Sodium Potassium Chloride 107.9 H Carbon Dioxide 18 L BUN 6 L Creatinine Glucose POC Glucose Lactic Acid Calcium 7.4 L Phosphorus Magnesium Iron TIBC Ferritin AST ALT Total Creatine Kinase Total Protein Albumin Vitamin B12 Folate TSH Free T4 CSF VDRL Reactive 1:8 H Lymph Enumerat CD4/CD8 Absolute CD3 Count % CD4 Cells Absolute CD4 Count % CD8 Cells Absolute CD19 Count T.pallidum Ab (FTA-ABS) HIV-1 RNA PCR copies/ml HIV-1 RNA (PCR) log Miscellaneous Test 09/16/18 09/16/18 09/16/18 06:55 11:41 11:41 WBC 2.8 L RBC Hgb 10.9 L Hct 33.5 L RDW Plt Count 135 L Seg Neuts % (Manual) Lymphocytes % (Manual) Monocytes % (Manual) Eosinophils % (Manual) Basophils % (Manual) Nucleated RBC % Seg Neutrophils # Man Abs Lymphs (Manual) Lymphocytes # (Manual) PT INR APTT Heparin Anti-Xa Level POC ABG pH POC ABG pCO2 POC ABG pO2 Sodium Potassium Chloride Carbon Dioxide BUN Creatinine Glucose POC Glucose Lactic Acid Calcium Phosphorus Magnesium Iron TIBC Ferritin AST ALT Total Creatine Kinase Total Protein Albumin Vitamin B12 Folate TSH 4.210 H Free T4 0.72 L CSF VDRL Lymph Enumerat CD4/CD8 Absolute CD3 Count % CD4 Cells Absolute CD4 Count % CD8 Cells Absolute CD19 Count T.pallidum Ab (FTA-ABS) HIV-1 RNA PCR copies/ml HIV-1 RNA (PCR) log Miscellaneous Test 09/16/18 09/16/18 09/17/18 11:41 15:43 05:13 WBC 2.0 L RBC Hgb 10.9 L Hct 32.7 L RDW Plt Count Seg Neuts % (Manual) Lymphocytes % (Manual) Monocytes % (Manual) Eosinophils % (Manual) Basophils % (Manual) Nucleated RBC % Seg Neutrophils # Man Abs Lymphs (Manual) Lymphocytes # (Manual) PT INR APTT Heparin Anti-Xa Level POC ABG pH POC ABG pCO2 29.3 L POC ABG pO2 70 L Sodium Potassium Chloride Carbon Dioxide BUN Creatinine Glucose POC Glucose Lactic Acid Calcium Phosphorus Magnesium Iron TIBC Ferritin AST ALT Total Creatine Kinase Total Protein Albumin Vitamin B12 934.5 H Folate TSH Free T4 CSF VDRL Lymph Enumerat CD4/CD8 Absolute CD3 Count % CD4 Cells Absolute CD4 Count % CD8 Cells Absolute CD19 Count T.pallidum Ab (FTA-ABS) HIV-1 RNA PCR copies/ml HIV-1 RNA (PCR) log Miscellaneous Test 09/17/18 09/17/18 09/18/18 05:13 21:57 12:46 WBC RBC Hgb Hct RDW Plt Count Seg Neuts % (Manual) Lymphocytes % (Manual) Monocytes % (Manual) Eosinophils % (Manual) Basophils % (Manual) Nucleated RBC % Seg Neutrophils # Man Abs Lymphs (Manual) Lymphocytes # (Manual) PT INR APTT Heparin Anti-Xa Level POC ABG pH POC ABG pCO2 POC ABG pO2 Sodium Potassium Chloride 107.2 H Carbon Dioxide 21 L BUN 3 L Creatinine 0.7 L Glucose POC Glucose 108 H Lactic Acid Calcium 7.9 L Phosphorus Magnesium Iron TIBC Ferritin AST ALT Total Creatine Kinase Total Protein 6.1 L Albumin 2.6 L Vitamin B12 Folate TSH Free T4 0.75 L CSF VDRL Lymph Enumerat CD4/CD8 Absolute CD3 Count % CD4 Cells Absolute CD4 Count % CD8 Cells Absolute CD19 Count T.pallidum Ab (FTA-ABS) HIV-1 RNA PCR copies/ml HIV-1 RNA (PCR) log Miscellaneous Test 09/18/18 09/19/18 09/19/18 12:46 04:57 04:57 WBC 2.1 L RBC Hgb 11.4 L Hct 34.2 L RDW Plt Count Seg Neuts % (Manual) Lymphocytes % (Manual) Monocytes % (Manual) Eosinophils % (Manual) Basophils % (Manual) Nucleated RBC % Seg Neutrophils # Man Abs Lymphs (Manual) Lymphocytes # (Manual) PT INR APTT Heparin Anti-Xa Level POC ABG pH POC ABG pCO2 POC ABG pO2 Sodium Potassium Chloride Carbon Dioxide 19 L BUN 6 L Creatinine Glucose POC Glucose Lactic Acid Calcium 7.9 L Phosphorus Magnesium Iron TIBC Ferritin AST ALT Total Creatine Kinase Total Protein Albumin Vitamin B12 Folate TSH 5.190 H Free T4 CSF VDRL Lymph Enumerat CD4/CD8 Absolute CD3 Count % CD4 Cells Absolute CD4 Count % CD8 Cells Absolute CD19 Count T.pallidum Ab (FTA-ABS) HIV-1 RNA PCR copies/ml HIV-1 RNA (PCR) log Miscellaneous Test 09/19/18 09/19/18 09/20/18 15:00 15:00 05:33 WBC RBC Hgb Hct RDW Plt Count Seg Neuts % (Manual) Lymphocytes % (Manual) Monocytes % (Manual) Eosinophils % (Manual) Basophils % (Manual) Nucleated RBC % Seg Neutrophils # Man Abs Lymphs (Manual) Lymphocytes # (Manual) PT INR APTT Heparin Anti-Xa Level POC ABG pH POC ABG pCO2 POC ABG pO2 Sodium 136 L Potassium Chloride Carbon Dioxide 19 L BUN 7 L Creatinine Glucose POC Glucose Lactic Acid Calcium Phosphorus Magnesium Iron TIBC Ferritin AST ALT Total Creatine Kinase Total Protein Albumin Vitamin B12 Folate TSH Free T4 CSF VDRL Reactive 1:4 H Lymph Enumerat CD4/CD8 Absolute CD3 Count % CD4 Cells Absolute CD4 Count % CD8 Cells Absolute CD19 Count T.pallidum Ab (FTA-ABS) HIV-1 RNA PCR copies/ml HIV-1 RNA (PCR) log Miscellaneous Test Flexitest 1 H 09/20/18 09/21/18 09/21/18 06:52 01:06 03:49 WBC 2.5 L RBC Hgb Hct RDW Plt Count Seg Neuts % (Manual) Lymphocytes % (Manual) Monocytes % (Manual) Eosinophils % (Manual) Basophils % (Manual) Nucleated RBC % Seg Neutrophils # Man Abs Lymphs (Manual) Lymphocytes # (Manual) PT INR APTT Heparin Anti-Xa Level POC ABG pH 7.159 L POC ABG pCO2 32.9 L 70.0 H POC ABG pO2 62 L 254 H Sodium Potassium Chloride Carbon Dioxide BUN Creatinine Glucose POC Glucose Lactic Acid Calcium Phosphorus Magnesium Iron TIBC Ferritin AST ALT Total Creatine Kinase Total Protein Albumin Vitamin B12 Folate TSH Free T4 CSF VDRL Lymph Enumerat CD4/CD8 Absolute CD3 Count % CD4 Cells Absolute CD4 Count % CD8 Cells Absolute CD19 Count T.pallidum Ab (FTA-ABS) HIV-1 RNA PCR copies/ml HIV-1 RNA (PCR) log Miscellaneous Test 09/21/18 09/21/18 09/21/18 04:15 04:15 04:25 WBC 3.1 L RBC Hgb 11.6 L Hct RDW Plt Count Seg Neuts % (Manual) Lymphocytes % (Manual) Monocytes % (Manual) 12.0 H Eosinophils % (Manual) Basophils % (Manual) Nucleated RBC % Seg Neutrophils # Man 1.6 L Abs Lymphs (Manual) Lymphocytes # (Manual) 0.5 L PT INR APTT Heparin Anti-Xa Level POC ABG pH POC ABG pCO2 POC ABG pO2 Sodium Potassium 6.1 H* D Chloride Carbon Dioxide 19 L BUN Creatinine Glucose 108 H POC Glucose Lactic Acid Calcium Phosphorus Magnesium Iron TIBC Ferritin AST ALT Total Creatine Kinase 685 H Total Protein Albumin Vitamin B12 Folate TSH Free T4 CSF VDRL Lymph Enumerat CD4/CD8 Absolute CD3 Count % CD4 Cells Absolute CD4 Count % CD8 Cells Absolute CD19 Count T.pallidum Ab (FTA-ABS) HIV-1 RNA PCR copies/ml HIV-1 RNA (PCR) log Miscellaneous Test 09/21/18 09/21/18 09/21/18 09:59 10:07 11:00 WBC RBC Hgb 11.7 L Hct RDW Plt Count Seg Neuts % (Manual) Lymphocytes % (Manual) Monocytes % (Manual) Eosinophils % (Manual) Basophils % (Manual) Nucleated RBC % Seg Neutrophils # Man Abs Lymphs (Manual) Lymphocytes # (Manual) PT INR APTT Heparin Anti-Xa Level POC ABG pH 7.301 L POC ABG pCO2 POC ABG pO2 109 H Sodium Potassium 6.5 H* Chloride Carbon Dioxide 18 L BUN Creatinine 2.1 H D Glucose POC Glucose Lactic Acid Calcium 8.1 L Phosphorus Magnesium Iron TIBC Ferritin AST 94 H ALT Total Creatine Kinase Total Protein Albumin 2.8 L Vitamin B12 Folate TSH Free T4 CSF VDRL Lymph Enumerat CD4/CD8 Absolute CD3 Count % CD4 Cells Absolute CD4 Count % CD8 Cells Absolute CD19 Count T.pallidum Ab (FTA-ABS) HIV-1 RNA PCR copies/ml HIV-1 RNA (PCR) log Miscellaneous Test 09/21/18 09/21/18 09/21/18 15:00 21:54 21:54 WBC RBC Hgb Hct RDW Plt Count Seg Neuts % (Manual) Lymphocytes % (Manual) Monocytes % (Manual) Eosinophils % (Manual) Basophils % (Manual) Nucleated RBC % Seg Neutrophils # Man Abs Lymphs (Manual) Lymphocytes # (Manual) PT 19.9 H INR 1.65 H APTT 40.9 H Heparin Anti-Xa Level 0.98 H POC ABG pH POC ABG pCO2 POC ABG pO2 Sodium Potassium 5.2 H Chloride Carbon Dioxide BUN Creatinine Glucose POC Glucose Lactic Acid Calcium Phosphorus Magnesium Iron TIBC Ferritin AST ALT Total Creatine Kinase Total Protein Albumin Vitamin B12 Folate TSH Free T4 CSF VDRL Lymph Enumerat CD4/CD8 Absolute CD3 Count % CD4 Cells Absolute CD4 Count % CD8 Cells Absolute CD19 Count T.pallidum Ab (FTA-ABS) HIV-1 RNA PCR copies/ml HIV-1 RNA (PCR) log Miscellaneous Test 09/21/18 09/22/18 09/22/18 22:57 03:01 05:27 WBC RBC Hgb Hct RDW Plt Count Seg Neuts % (Manual) Lymphocytes % (Manual) Monocytes % (Manual) Eosinophils % (Manual) Basophils % (Manual) Nucleated RBC % Seg Neutrophils # Man Abs Lymphs (Manual) Lymphocytes # (Manual) PT INR APTT Heparin Anti-Xa Level POC ABG pH POC ABG pCO2 32.7 L POC ABG pO2 Sodium Potassium Chloride Carbon Dioxide BUN Creatinine Glucose POC Glucose 124 H 128 H Lactic Acid Calcium Phosphorus Magnesium Iron TIBC Ferritin AST ALT Total Creatine Kinase Total Protein Albumin Vitamin B12 Folate TSH Free T4 CSF VDRL Lymph Enumerat CD4/CD8 Absolute CD3 Count % CD4 Cells Absolute CD4 Count % CD8 Cells Absolute CD19 Count T.pallidum Ab (FTA-ABS) HIV-1 RNA PCR copies/ml HIV-1 RNA (PCR) log Miscellaneous Test 09/22/18 09/22/18 09/22/18 07:00 07:00 11:32 WBC 1.8 L* RBC 3.59 L Hgb 10.1 L Hct 30.8 L RDW Plt Count 126 L Seg Neuts % (Manual) Lymphocytes % (Manual) Monocytes % (Manual) Eosinophils % (Manual) Basophils % (Manual) Nucleated RBC % Seg Neutrophils # Man Abs Lymphs (Manual) Lymphocytes # (Manual) PT INR APTT Heparin Anti-Xa Level POC ABG pH POC ABG pCO2 POC ABG pO2 Sodium Potassium Chloride Carbon Dioxide BUN 27 H Creatinine 2.0 H Glucose 128 H POC Glucose 123 H Lactic Acid Calcium 6.9 L Phosphorus Magnesium Iron TIBC Ferritin AST ALT Total Creatine Kinase Total Protein Albumin Vitamin B12 Folate TSH Free T4 CSF VDRL Lymph Enumerat CD4/CD8 Absolute CD3 Count % CD4 Cells Absolute CD4 Count % CD8 Cells Absolute CD19 Count T.pallidum Ab (FTA-ABS) HIV-1 RNA PCR copies/ml HIV-1 RNA (PCR) log Miscellaneous Test 09/22/18 09/22/18 09/22/18 15:52 18:18 23:52 WBC RBC Hgb Hct RDW Plt Count Seg Neuts % (Manual) Lymphocytes % (Manual) Monocytes % (Manual) Eosinophils % (Manual) Basophils % (Manual) Nucleated RBC % Seg Neutrophils # Man Abs Lymphs (Manual) Lymphocytes # (Manual) PT INR APTT Heparin Anti-Xa Level POC ABG pH POC ABG pCO2 48.7 H POC ABG pO2 Sodium Potassium Chloride Carbon Dioxide BUN Creatinine Glucose POC Glucose 110 H 124 H Lactic Acid Calcium Phosphorus Magnesium Iron TIBC Ferritin AST ALT Total Creatine Kinase Total Protein Albumin Vitamin B12 Folate TSH Free T4 CSF VDRL Lymph Enumerat CD4/CD8 Absolute CD3 Count % CD4 Cells Absolute CD4 Count % CD8 Cells Absolute CD19 Count T.pallidum Ab (FTA-ABS) HIV-1 RNA PCR copies/ml HIV-1 RNA (PCR) log Miscellaneous Test 09/23/18 09/23/18 09/23/18 04:10 05:55 05:55 WBC RBC Hgb 10.0 L Hct 30.3 L RDW Plt Count 117 L Seg Neuts % (Manual) Lymphocytes % (Manual) Monocytes % (Manual) Eosinophils % (Manual) Basophils % (Manual) Nucleated RBC % Seg Neutrophils # Man Abs Lymphs (Manual) Lymphocytes # (Manual) PT INR APTT Heparin Anti-Xa Level 0.26 L POC ABG pH POC ABG pCO2 POC ABG pO2 144 H Sodium Potassium Chloride Carbon Dioxide BUN Creatinine Glucose POC Glucose Lactic Acid Calcium Phosphorus Magnesium Iron TIBC Ferritin AST ALT Total Creatine Kinase Total Protein Albumin Vitamin B12 Folate TSH Free T4 CSF VDRL Lymph Enumerat CD4/CD8 Absolute CD3 Count % CD4 Cells Absolute CD4 Count % CD8 Cells Absolute CD19 Count T.pallidum Ab (FTA-ABS) HIV-1 RNA PCR copies/ml HIV-1 RNA (PCR) log Miscellaneous Test 09/23/18 09/23/18 09/23/18 08:10 08:10 23:57 WBC 1.3 L* RBC 3.53 L Hgb 9.9 L Hct 30.0 L RDW Plt Count 119 L Seg Neuts % (Manual) Lymphocytes % (Manual) Monocytes % (Manual) Eosinophils % (Manual) Basophils % (Manual) Nucleated RBC % Seg Neutrophils # Man Abs Lymphs (Manual) Lymphocytes # (Manual) PT INR APTT Heparin Anti-Xa Level POC ABG pH POC ABG pCO2 POC ABG pO2 Sodium Potassium Chloride Carbon Dioxide BUN Creatinine Glucose 122 H POC Glucose 115 H Lactic Acid Calcium 6.9 L Phosphorus Magnesium Iron TIBC Ferritin AST ALT Total Creatine Kinase Total Protein Albumin Vitamin B12 Folate TSH Free T4 CSF VDRL Lymph Enumerat CD4/CD8 Absolute CD3 Count % CD4 Cells Absolute CD4 Count % CD8 Cells Absolute CD19 Count T.pallidum Ab (FTA-ABS) HIV-1 RNA PCR copies/ml HIV-1 RNA (PCR) log Miscellaneous Test 09/24/18 09/24/18 09/24/18 12:04 14:42 18:10 WBC RBC Hgb Hct RDW Plt Count Seg Neuts % (Manual) Lymphocytes % (Manual) Monocytes % (Manual) Eosinophils % (Manual) Basophils % (Manual) Nucleated RBC % Seg Neutrophils # Man Abs Lymphs (Manual) Lymphocytes # (Manual) PT INR APTT Heparin Anti-Xa Level 0.76 H POC ABG pH POC ABG pCO2 POC ABG pO2 Sodium Potassium Chloride Carbon Dioxide BUN Creatinine Glucose POC Glucose 111 H 138 H Lactic Acid Calcium Phosphorus Magnesium Iron TIBC Ferritin AST ALT Total Creatine Kinase Total Protein Albumin Vitamin B12 Folate TSH Free T4 CSF VDRL Lymph Enumerat CD4/CD8 Absolute CD3 Count % CD4 Cells Absolute CD4 Count % CD8 Cells Absolute CD19 Count T.pallidum Ab (FTA-ABS) HIV-1 RNA PCR copies/ml HIV-1 RNA (PCR) log Miscellaneous Test 09/25/18 09/25/18 09/25/18 03:45 04:24 14:20 WBC RBC Hgb 9.7 L Hct 29.4 L RDW Plt Count 104 L Seg Neuts % (Manual) Lymphocytes % (Manual) Monocytes % (Manual) Eosinophils % (Manual) Basophils % (Manual) Nucleated RBC % Seg Neutrophils # Man Abs Lymphs (Manual) Lymphocytes # (Manual) PT INR APTT Heparin Anti-Xa Level POC ABG pH 7.460 H POC ABG pCO2 32.9 L POC ABG pO2 Sodium Potassium 3.5 L Chloride 110.3 H Carbon Dioxide BUN Creatinine Glucose 105 H POC Glucose Lactic Acid Calcium 6.7 L Phosphorus Magnesium Iron TIBC Ferritin AST 633 H ALT 481 H Total Creatine Kinase Total Protein 4.8 L D Albumin 1.9 L Vitamin B12 Folate TSH Free T4 CSF VDRL Lymph Enumerat CD4/CD8 Absolute CD3 Count % CD4 Cells Absolute CD4 Count % CD8 Cells Absolute CD19 Count T.pallidum Ab (FTA-ABS) HIV-1 RNA PCR copies/ml HIV-1 RNA (PCR) log Miscellaneous Test 09/26/18 09/26/18 09/26/18 06:15 06:15 10:43 WBC 1.2 L* RBC 3.32 L Hgb 9.2 L Hct 28.6 L RDW Plt Count 97 L Seg Neuts % (Manual) 24.0 L Lymphocytes % (Manual) 43.0 H Monocytes % (Manual) 19.0 H Eosinophils % (Manual) 8.0 H Basophils % (Manual) 2.0 H Nucleated RBC % 3.0 H Seg Neutrophils # Man 0.0 L Abs Lymphs (Manual) Lymphocytes # (Manual) 0.0 L PT INR APTT Heparin Anti-Xa Level POC ABG pH 7.459 H POC ABG pCO2 POC ABG pO2 141 H Sodium Potassium Chloride 112.8 H Carbon Dioxide BUN Creatinine Glucose 110 H POC Glucose Lactic Acid Calcium 7.0 L Phosphorus 0.90 L* Magnesium Iron TIBC Ferritin AST 362 H ALT 360 H Total Creatine Kinase Total Protein 4.9 L Albumin 1.5 L Vitamin B12 Folate TSH Free T4 CSF VDRL Lymph Enumerat CD4/CD8 Absolute CD3 Count % CD4 Cells Absolute CD4 Count % CD8 Cells Absolute CD19 Count T.pallidum Ab (FTA-ABS) HIV-1 RNA PCR copies/ml HIV-1 RNA (PCR) log Miscellaneous Test 09/26/18 09/27/18 09/28/18 13:56 04:11 07:49 WBC RBC Hgb 9.1 L Hct 29.1 L RDW Plt Count 96 L Seg Neuts % (Manual) Lymphocytes % (Manual) Monocytes % (Manual) Eosinophils % (Manual) Basophils % (Manual) Nucleated RBC % Seg Neutrophils # Man Abs Lymphs (Manual) Lymphocytes # (Manual) PT INR APTT Heparin Anti-Xa Level POC ABG pH POC ABG pCO2 POC ABG pO2 Sodium 146 H Potassium Chloride 111.6 H Carbon Dioxide BUN Creatinine Glucose POC Glucose 135 H Lactic Acid Calcium 7.4 L Phosphorus Magnesium Iron TIBC Ferritin AST ALT Total Creatine Kinase Total Protein Albumin Vitamin B12 Folate TSH Free T4 CSF VDRL Lymph Enumerat CD4/CD8 Absolute CD3 Count % CD4 Cells Absolute CD4 Count % CD8 Cells Absolute CD19 Count T.pallidum Ab (FTA-ABS) HIV-1 RNA PCR copies/ml HIV-1 RNA (PCR) log Miscellaneous Test 09/28/18 09/29/18 09/29/18 10:43 05:00 05:00 WBC 1.2 L* RBC 3.13 L Hgb 8.6 L Hct 27.3 L RDW Plt Count 137 L Seg Neuts % (Manual) Lymphocytes % (Manual) Monocytes % (Manual) 16.0 H Eosinophils % (Manual) Basophils % (Manual) Nucleated RBC % 4.0 H Seg Neutrophils # Man 0.5 L Abs Lymphs (Manual) Lymphocytes # (Manual) 0.3 L PT INR APTT Heparin Anti-Xa Level POC ABG pH 7.300 L POC ABG pCO2 53.9 H POC ABG pO2 Sodium 147 H Potassium 3.4 L Chloride 114.5 H Carbon Dioxide BUN Creatinine Glucose POC Glucose Lactic Acid Calcium 7.7 L Phosphorus Magnesium Iron TIBC Ferritin AST 69 H ALT 110 H Total Creatine Kinase Total Protein 5.2 L Albumin 1.9 L Vitamin B12 Folate TSH Free T4 CSF VDRL Lymph Enumerat CD4/CD8 Absolute CD3 Count % CD4 Cells Absolute CD4 Count % CD8 Cells Absolute CD19 Count T.pallidum Ab (FTA-ABS) HIV-1 RNA PCR copies/ml HIV-1 RNA (PCR) log Miscellaneous Test 09/29/18 09/29/18 09/30/18 06:07 13:22 05:19 WBC 0.9 L* RBC 3.03 L Hgb 8.6 L Hct 25.9 L RDW Plt Count Seg Neuts % (Manual) Lymphocytes % (Manual) Monocytes % (Manual) Eosinophils % (Manual) Basophils % (Manual) Nucleated RBC % Seg Neutrophils # Man Abs Lymphs (Manual) Lymphocytes # (Manual) PT INR APTT Heparin Anti-Xa Level POC ABG pH POC ABG pCO2 46.9 H POC ABG pO2 Sodium Potassium Chloride Carbon Dioxide BUN Creatinine Glucose POC Glucose 109 H Lactic Acid Calcium Phosphorus Magnesium Iron TIBC Ferritin AST ALT Total Creatine Kinase Total Protein Albumin Vitamin B12 Folate TSH Free T4 CSF VDRL Lymph Enumerat CD4/CD8 Absolute CD3 Count % CD4 Cells Absolute CD4 Count % CD8 Cells Absolute CD19 Count T.pallidum Ab (FTA-ABS) HIV-1 RNA PCR copies/ml HIV-1 RNA (PCR) log Miscellaneous Test 09/30/18 09/30/18 09/30/18 05:19 11:14 23:28 WBC RBC Hgb Hct RDW Plt Count Seg Neuts % (Manual) Lymphocytes % (Manual) Monocytes % (Manual) Eosinophils % (Manual) Basophils % (Manual) Nucleated RBC % Seg Neutrophils # Man Abs Lymphs (Manual) Lymphocytes # (Manual) PT INR APTT Heparin Anti-Xa Level 0.72 H POC ABG pH POC ABG pCO2 46.6 H POC ABG pO2 Sodium 150 H Potassium Chloride 115.2 H Carbon Dioxide BUN Creatinine Glucose POC Glucose Lactic Acid Calcium 7.9 L Phosphorus Magnesium Iron TIBC Ferritin AST ALT Total Creatine Kinase Total Protein Albumin Vitamin B12 Folate TSH Free T4 CSF VDRL Lymph Enumerat CD4/CD8 Absolute CD3 Count % CD4 Cells Absolute CD4 Count % CD8 Cells Absolute CD19 Count T.pallidum Ab (FTA-ABS) HIV-1 RNA PCR copies/ml HIV-1 RNA (PCR) log Miscellaneous Test 10/01/18 10/01/18 10/02/18 04:55 04:55 07:15 WBC 0.9 L* 0.7 L* RBC 3.01 L 2.92 L Hgb 8.4 L 8.4 L Hct 26.0 L 24.9 L RDW Plt Count Seg Neuts % (Manual) Lymphocytes % (Manual) Monocytes % (Manual) Eosinophils % (Manual) Basophils % (Manual) Nucleated RBC % Seg Neutrophils # Man Abs Lymphs (Manual) Lymphocytes # (Manual) PT INR APTT Heparin Anti-Xa Level POC ABG pH POC ABG pCO2 POC ABG pO2 Sodium 147 H Potassium 3.4 L Chloride 113.1 H Carbon Dioxide BUN 22 H Creatinine Glucose POC Glucose Lactic Acid Calcium 7.3 L Phosphorus Magnesium Iron TIBC Ferritin AST ALT Total Creatine Kinase Total Protein Albumin Vitamin B12 Folate TSH Free T4 CSF VDRL Lymph Enumerat CD4/CD8 Absolute CD3 Count % CD4 Cells Absolute CD4 Count % CD8 Cells Absolute CD19 Count T.pallidum Ab (FTA-ABS) HIV-1 RNA PCR copies/ml HIV-1 RNA (PCR) log Miscellaneous Test 10/02/18 10/03/18 10/03/18 07:15 06:12 06:12 WBC 0.8 L* RBC 2.96 L Hgb 8.5 L Hct 25.9 L RDW 15.4 H Plt Count Seg Neuts % (Manual) Lymphocytes % (Manual) Monocytes % (Manual) Eosinophils % (Manual) Basophils % (Manual) Nucleated RBC % Seg Neutrophils # Man Abs Lymphs (Manual) Lymphocytes # (Manual) PT INR APTT Heparin Anti-Xa Level POC ABG pH POC ABG pCO2 POC ABG pO2 Sodium Potassium 3.4 L 3.4 L Chloride 108.3 H Carbon Dioxide BUN Creatinine Glucose POC Glucose Lactic Acid Calcium 7.6 L 7.4 L Phosphorus Magnesium Iron TIBC Ferritin AST ALT Total Creatine Kinase Total Protein Albumin Vitamin B12 Folate TSH Free T4 CSF VDRL Lymph Enumerat CD4/CD8 Absolute CD3 Count % CD4 Cells Absolute CD4 Count % CD8 Cells Absolute CD19 Count T.pallidum Ab (FTA-ABS) HIV-1 RNA PCR copies/ml HIV-1 RNA (PCR) log Miscellaneous Test 10/03/18 10/03/18 10/04/18 11:45 13:23 01:40 WBC RBC Hgb Hct RDW Plt Count Seg Neuts % (Manual) Lymphocytes % (Manual) Monocytes % (Manual) Eosinophils % (Manual) Basophils % (Manual) Nucleated RBC % Seg Neutrophils # Man Abs Lymphs (Manual) Lymphocytes # (Manual) PT INR APTT Heparin Anti-Xa Level 1.34 H 0.26 L POC ABG pH POC ABG pCO2 POC ABG pO2 Sodium Potassium Chloride Carbon Dioxide BUN Creatinine Glucose POC Glucose Lactic Acid Calcium Phosphorus Magnesium 1.40 L Iron TIBC Ferritin AST ALT Total Creatine Kinase Total Protein Albumin Vitamin B12 Folate TSH Free T4 CSF VDRL Lymph Enumerat CD4/CD8 Absolute CD3 Count % CD4 Cells Absolute CD4 Count % CD8 Cells Absolute CD19 Count T.pallidum Ab (FTA-ABS) HIV-1 RNA PCR copies/ml HIV-1 RNA (PCR) log Miscellaneous Test 10/04/18 10/04/18 10/06/18 04:45 04:45 09:40 WBC 0.8 L* RBC 3.11 L Hgb 9.0 L Hct 27.4 L RDW 15.4 H Plt Count Seg Neuts % (Manual) Lymphocytes % (Manual) Monocytes % (Manual) Eosinophils % (Manual) Basophils % (Manual) Nucleated RBC % Seg Neutrophils # Man Abs Lymphs (Manual) Lymphocytes # (Manual) PT INR APTT Heparin Anti-Xa Level POC ABG pH POC ABG pCO2 POC ABG pO2 Sodium Potassium Chloride Carbon Dioxide BUN Creatinine 0.7 L Glucose POC Glucose Lactic Acid Calcium 7.5 L Phosphorus Magnesium Iron 35 L TIBC 157 L Ferritin AST ALT Total Creatine Kinase Total Protein Albumin Vitamin B12 Folate TSH Free T4 CSF VDRL Lymph Enumerat CD4/CD8 Absolute CD3 Count % CD4 Cells Absolute CD4 Count % CD8 Cells Absolute CD19 Count T.pallidum Ab (FTA-ABS) HIV-1 RNA PCR copies/ml HIV-1 RNA (PCR) log Miscellaneous Test 10/06/18 10/06/18 09:40 09:40 WBC RBC Hgb Hct RDW Plt Count Seg Neuts % (Manual) Lymphocytes % (Manual) Monocytes % (Manual) Eosinophils % (Manual) Basophils % (Manual) Nucleated RBC % Seg Neutrophils # Man Abs Lymphs (Manual) Lymphocytes # (Manual) PT INR APTT Heparin Anti-Xa Level POC ABG pH POC ABG pCO2 POC ABG pO2 Sodium Potassium Chloride Carbon Dioxide BUN Creatinine Glucose POC Glucose Lactic Acid Calcium Phosphorus Magnesium Iron TIBC Ferritin 1126.0 H AST ALT Total Creatine Kinase Total Protein Albumin Vitamin B12 Folate 6.71 L TSH Free T4 CSF VDRL Lymph Enumerat CD4/CD8 Absolute CD3 Count % CD4 Cells Absolute CD4 Count % CD8 Cells Absolute CD19 Count T.pallidum Ab (FTA-ABS) HIV-1 RNA PCR copies/ml HIV-1 RNA (PCR) log Miscellaneous Test
[2018-10-07] MEDS: PFIZERPEN 5 MIL.UNITS in NACL 0.9% 50 ML IV SCH ×6 (00:02→21:16)
[2018-10-07] MEDS: CYTOVENE 500 MG in NACL 0.9% 250ML 250 ML IV SCH ×2 (01:30→13:23)
[2018-10-07] MEDS: PROVENTIL IH SCH ×4 (03:27→19:23)
[2018-10-07] MEDS: LOPRESSOR IV SCH ×4 (03:53→21:29)
[2018-10-07 04:28] LABS: Hematocrit 27.3 % (35.5-45.6); Hemoglobin 9.1 gm/dl (11.8-15.2); Mean Corpuscular HGB Conc 33 % (32-34); Mean Corpuscular Volume 89 fl (84-94); Platelet Count 229 K/mm3 (140-440); Red Blood Count 3.07 M/mm3 (3.65-5.03)
[2018-10-07 04:44] LABS: Red Cell Distribution Width 20.3 % (13.2-15.2)
[2018-10-07 04:51] LABS: Alanine Aminotransferase 25 units/L (7-56); Albumin 2.2 g/dL (3.9-5); BUN/Creatinine Ratio 23; Blood Urea Nitrogen 16 mg/dL (9-20); Calcium 7.9 mg/dL (8.4-10.2); Hemolysis Index 1
[2018-10-07] MEDS: ROBINUL PO SCH ×2 (06:18→18:09)
[2018-10-07] MEDS: SYNTHROID PO SCH (06:19)
[2018-10-07] MEDS: HEPARIN SUB-Q SCH ×3 (06:20→21:17)
--- NOTE | 2018-10-07 06:58 | Hem/Onc Progress Note ---
Assessment and Plan 1. Leukopenia. ANC is 0.5. Neutropenic precaution is practical. 2. Anemia. We will investigate. 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 HAART has been started. At this time, there is no fever. 3. Human immunodeficiency virus, on HAART. 4. 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 5. Intubated. 6. On antibiotics for pneumonia. 7. History of ____ that is improved. 8. Looks at you, but does not communicate. 9. History of oral candidiasis. 10. Mention of giardiasis. 11. Encephalopathy. 12. RVR with atrial fibrillation. I will follow the patient during inpatient stay. At this time, his cytopenia is likely secondary to the HIV or the CMV. I will discuss with ID team to see if G-CSF support is an option. 10/07 - d/w ID - reg GCSF ANC improving 0.7 today - will watch low folate - replace - Patient Problems (1) Neutropenia Current Visit: Yes Status: Acute Subjective Date of service: 10/07/18 Objective - Exam Narrative Exam: pt on vent - eyes open - non communicative - Constitutional Vitals: Last Vital Signs Temp 97.5 F L 10/07/18 02:51 Pulse 84 10/07/18 06:30 Resp 25 H 10/07/18 06:35 BP 121/76 10/07/18 06:30 Pulse Ox 100 10/07/18 06:35 General appearance: no acute distress Performance status: 4-completely disabled - EENT ENT: other (intubated) Lymph node exam: negative cervical - Respiratory Respiratory: bilateral: diminished - Cardiovascular Heart Sounds: Present: S1 & S2 Extremity abnormal: edema - Gastrointestinal General gastrointestinal: Present: soft Rectal Exam: deferred - Genitourinary Male genitourinary: Present: deferred - Integumentary Integumentary: warm - Neurologic Neurologic: other (non verbal- eyes open ) - Labs Lab Results: Laboratory Results - last 24 hr 10/03/18 10/06/18 10/06/18 06:12 09:40 09:40 WBC RBC Hgb Hct MCV MCH MCHC RDW Plt Count Sodium Potassium Chloride Carbon Dioxide Anion Gap BUN Creatinine Estimated GFR BUN/Creatinine Ratio Glucose POC Glucose Calcium Iron 35 L TIBC 157 L Ferritin 1126.0 H Total Bilirubin AST ALT Alkaline Phosphatase Total Protein Albumin Albumin/Globulin Ratio Folate CMV DNA PCR log photostatic copy maker/mL See scanned results 10/06/18 10/06/18 10/06/18 09:40 18:21 23:17 WBC RBC Hgb Hct MCV MCH MCHC RDW Plt Count Sodium Potassium Chloride Carbon Dioxide Anion Gap BUN Creatinine Estimated GFR BUN/Creatinine Ratio Glucose POC Glucose 87 95 Calcium Iron TIBC Ferritin Total Bilirubin AST ALT Alkaline Phosphatase Total Protein Albumin Albumin/Globulin Ratio Folate 6.71 L CMV DNA PCR log photostatic copy maker/mL 10/07/18 10/07/18 10/07/18 04:20 04:20 05:11 WBC 1.1 L* RBC 3.07 L Hgb 9.1 L Hct 27.3 L MCV 89 MCH 30 MCHC 33 RDW 20.3 H Plt Count 229 Sodium 142 Potassium 3.9 Chloride 105.0 Carbon Dioxide 27 Anion Gap 14 BUN 16 Creatinine 0.7 L Estimated GFR > 60 BUN/Creatinine Ratio 23 Glucose 85 POC Glucose 70 Calcium 7.9 L Iron TIBC Ferritin Total Bilirubin 0.30 AST 30 ALT 25 Alkaline Phosphatase 57 Total Protein 5.5 L Albumin 2.2 L Albumin/Globulin Ratio 0.7 Folate CMV DNA PCR log photostatic copy maker/mL Medications & Allergies - Medications Allergies/Adverse Reactions: Allergies No Known Allergies Allergy (Unverified 09/11/18 17:50) Home Medications: Home Medications Medication Instructions Recorded Confirmed Last Taken Type RX: No Known Home Medications [No 10/02/18 10/02/18 Unknown History Reported Home Medications] Active Medications: Generic Name Dose Route Start Last Admin Trade Name Freq PRN Reason Stop Dose Admin Acetaminophen 650 mg 09/11/18 19:30 10/05/18 14:48 Tylenol PO 650 mg Q4H PRN Administration Pain MILD(1-3)/Fever >100.5/RIVERA Acetaminophen 650 mg 09/21/18 07:39 Tylenol MO Q4H PRN Fever >101 Albuterol 2.5 mg 09/11/18 19:30 09/16/18 06:09 Proventil IH 2.5 mg Q4HRT PRN Administration Shortness Of Breath Albuterol 2.5 mg 09/20/18 20:00 10/07/18 03:27 Proventil IH 2.5 mg Q6HRT GIA Administration Amiodarone HCl 200 mg 09/27/18 15:00 10/06/18 21:47 Cordarone PO 200 mg BID GIA Administration Lipase/Protease/Amylase 1 each 09/30/18 12:01 Abril Gibbs 10,500 Unit FEEDTUBE PRN PRN For Clogged Feeding Tube Atovaquone 750 mg 09/21/18 10:00 10/06/18 21:49 Mepron PO 750 mg BID GIA Administration Azithromycin 1,200 mg 09/25/18 10:00 10/02/18 09:00 Zithromax PO 1,200 mg Waltesr GIA Administration Emtricitabine 200 mg 09/30/18 11:30 10/06/18 09:23 Emtriva PO 200 mg QDAY GIA Administration Famotidine 20 mg 09/24/18 10:00 10/06/18 21:48 Pepcid PO 20 mg BID GIA Administration Fluconazole 200 mg 10/05/18 12:00 10/06/18 09:22 Diflucan PO 200 mg QDAY GIA Administration Glycopyrrolate 2 mg 09/23/18 15:00 10/07/18 06:18 Robinul PO 2 mg Q8HR GIA Administration Heparin Sodium (Porcine) 5,000 unit 10/05/18 14:00 10/07/18 06:20 Heparin SUB-Q 5,000 unit Q8HR GIA Administration Hydrophilic Ointment 1 applic 09/21/18 01:46 09/22/18 03:46 Vaseline Lip Therapy TP 1 applic Q2HR PRN Administration Dry Lips Ganciclovir Sodium 500 mg/ 250 mls @ 100 mls/hr 09/23/18 13:00 10/07/18 01:30 Sodium Chloride IV 100 mls/hr Q12H GIA Administration Penicillin G Potassium 5 mil. 50 mls @ 100 mls/hr 10/03/18 20:00 10/07/18 03:53 units/ Sodium Chloride IV 100 mls/hr Q4H GIA Administration Levothyroxine Sodium 25 mcg 09/19/18 06:00 10/07/18 06:19 Synthroid PO 25 mcg DAILY@0600 GIA Administration Metoprolol Tartrate 5 mg 09/21/18 03:00 10/07/18 03:53 Lopressor IV 5 mg Q6H GIA Administration Multi-Ingred Cream/Lotion/Oil/Oint 1 applic 09/21/18 01:46 Artificial Tears Ophth Oint OU Q4HR PRN Dry Eye(s) Ondansetron HCl 4 mg 09/11/18 19:30 Zofran IV Q8H PRN Nausea And Vomiting Scopolamine 1 each 09/18/18 18:00 10/06/18 19:01 Transderm-Scop TD 1 each Q3D GIA Administration Simple Syrup 15 ml 09/30/18 12:01 10/07/18 06:18 Simple Syrup FEEDTUBE 15 ml PRN PRN Administration Hypoglycemia Simple Syrup 30 ml 09/30/18 12:01 Simple Syrup FEEDTUBE PRN PRN Hypoglycemia Sodium Bicarbonate 325 mg 09/30/18 12:01 Sodium Bicarbonate FEEDTUBE PRN PRN For Clogged Feeding Tube Sodium Chloride 10 ml 09/11/18 22:00 10/06/18 21:35 Sodium Chloride Flush Syringe 10 Ml IV 10 ml BID GIA Administration Sodium Chloride 10 ml 09/11/18 19:30 Sodium Chloride Flush Syringe 10 Ml IV PRN PRN LINE FLUSH Tenofovir Disoproxil Fumarate 300 mg 09/30/18 11:30 10/06/18 09:23 Viread PO 300 mg QDAY GIA Administration
[2018-10-07 07:11] LABS: Anisocytosis 1+; Hypochromasia 1+; Monocytes % (Manual) 0 % (0.0-7.3); Ovalocytes 1+; Total Cells Counted 100
[2018-10-07 07:12] LABS: Large Platelets Rare
[2018-10-07] MEDS: FOLVITE PO SCH (10:01)
[2018-10-07] MEDS: CORDARONE PO SCH ×2 (10:01→21:15)
[2018-10-07] MEDS: DIFLUCAN PO SCH (10:02)
[2018-10-07] MEDS: PEPCID PO SCH ×2 (10:02→21:15)
[2018-10-07] MEDS: MEPRON PO SCH ×2 (10:04→21:16)
[2018-10-07] MEDS: EMTRIVA PO SCH (10:05)
[2018-10-07] MEDS: VIREAD PO SCH (10:07)
[2018-10-07] MEDS: TIVICAY PO SCH (10:08)
[2018-10-07] MEDS: SODIUM CHLORIDE FLUSH SYRINGE 10 ML IV SCH ×2 (10:08→21:19)
--- NOTE | 2018-10-07 12:31 | Progress Note ---
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 - continue Robinul & scopolamine for secretion control - continue to hold all sedating medications - will continue daytime SBT's for now while following mental status - continue anti-infective's per ID recs (ART has been started appropriately) - continue low dose reglan re: reported increased residuals - continue supplemental oxygen to keep sats > 90% - continue bronchodilators with pulmonary Continue empiric and targeted anti- infective's per ID recs antibiotics per ID - continue set rate at 12/min - continue daily SBT's - daily SAT's once sedation resumed - continue IV heparin for NSTEMI - continue Robinul 2 mg q8h for secretions - IV amiodarone stopped - cardiology evaluation ongoing - diarrhea improved - continue fluconazole for candidiasis - watch for drug-drug interactions - continue enteral nutrition as tolerated - when resumed target sedation for RASS 0 to -1 - PT/OT/ROM exercises as tolerated - mobility protocol for pressure ulcer prophylaxis - continue GI & VTE prophylaxis - continue other care per attending / other consultants ....... care plan discussed at length with next-of-kin at bedside ...... re-evaluate in am & prn The high probability of a clinically significant, sudden or life threatening deterioration of the [cardiac, respiratory and neurologic] system(s) required my full and direct attention, intervention and personal management. The aggregate critical care time was [35] minutes. This time is in addition to time spent performing reported procedures but includes the following: [x] Data Review and interpretation [x] Patient assessment and monitoring of vital signs [x] Documentation [x] Medication orders and management Subjective Date of service: 10/06/18 Principal diagnosis: Severe sepsis; Ac hypoxemic Resp failure; [place]. Pneumonia; Ac encephalopathy Interval history: LATE ENTRY NOTE FOR 10/06/18 Patient is seen today for: Severe sepsis (present on admission with fever, tachycardia, hypotension and elevated lactate); Acute hypoxemic Respiratory failure; Bilateral pneumonia; Acute encephalopathy (Toxic / Metabolic); Atrial Fibrillation with RVR Seen and examined at bedside; 24hour events reviewed; nursing and respiratory care staff consulted; no adverse overnight events reported to me; tolerating l ess time on PSV; AMS is persistent; awaiting tracheostomy; no emesis or overt aspiration; secretions remain moderate Objective Vital Signs - 12hr 10/07/18 10/07/18 10/07/18 01:00 01:30 02:00 Temperature Pulse Rate 88 89 86 Pulse Rate [ 95 H From Monitor] Pulse Rate [ 95 H Left Dorsalis Pedis] Pulse Rate [ Throughout] Respiratory 20 25 H 19 Rate Respiratory Rate [ Throughout] Blood Pressure 117/71 117/71 120/73 O2 Sat by Pulse 100 100 100 Oximetry 10/07/18 10/07/18 10/07/18 02:30 02:51 03:00 Temperature 97.5 F L Pulse Rate 87 84 Pulse Rate [ From Monitor] Pulse Rate [ Left Dorsalis Pedis] Pulse Rate [ Throughout] Respiratory 17 25 H Rate Respiratory Rate [ Throughout] Blood Pressure 120/73 126/81 O2 Sat by Pulse 100 100 Oximetry 10/07/18 10/07/18 10/07/18 03:27 03:28 03:30 Temperature Pulse Rate 82 82 Pulse Rate [ From Monitor] Pulse Rate [ Left Dorsalis Pedis] Pulse Rate [ 82 Throughout] Respiratory 20 Rate Respiratory 16 Rate [ Throughout] Blood Pressure 126/81 120/73 O2 Sat by Pulse 100 100 Oximetry 10/07/18 10/07/18 10/07/18 03:35 03:53 04:00 Temperature Pulse Rate 87 81 Pulse Rate [ From Monitor] Pulse Rate [ Left Dorsalis Pedis] Pulse Rate [ 88 Throughout] Respiratory 14 Rate Respiratory 25 H Rate [ Throughout] Blood Pressure 126/81 123/81 O2 Sat by Pulse 100 Oximetry 10/07/18 10/07/18 10/07/18 04:30 05:00 05:30 Temperature Pulse Rate 76 77 81 Pulse Rate [ 95 H From Monitor] Pulse Rate [ 95 H Left Dorsalis Pedis] Pulse Rate [ Throughout] Respiratory 12 12 16 Rate Respiratory Rate [ Throughout] Blood Pressure 123/81 121/76 121/76 O2 Sat by Pulse 100 100 100 Oximetry 10/07/18 10/07/18 10/07/18 06:00 06:30 06:35 Temperature Pulse Rate 86 84 Pulse Rate [ From Monitor] Pulse Rate [ Left Dorsalis Pedis] Pulse Rate [ Throughout] Respiratory 27 H 24 25 H Rate Respiratory Rate [ Throughout] Blood Pressure 133/78 121/76 O2 Sat by Pulse 100 100 100 Oximetry 10/07/18 10/07/18 10/07/18 07:00 07:30 08:00 Temperature 98.2 F Pulse Rate 87 88 90 Pulse Rate [ From Monitor] Pulse Rate [ Left Dorsalis Pedis] Pulse Rate [ Throughout] Respiratory 22 31 H 25 H Rate Respiratory Rate [ Throughout] Blood Pressure 116/76 116/76 116/76 O2 Sat by Pulse 100 100 Oximetry 10/07/18 10/07/18 10/07/18 08:30 08:42 08:45 Temperature Pulse Rate 90 90 90 Pulse Rate [ From Monitor] Pulse Rate [ Left Dorsalis Pedis] Pulse Rate [ Throughout] Respiratory 25 H 26 H Rate Respiratory Rate [ Throughout] Blood Pressure 128/85 128/85 128/85 O2 Sat by Pulse 92 95 97 Oximetry 10/07/18 10/07/18 10/07/18 08:48 08:57 09:00 Temperature Pulse Rate 94 H Pulse Rate [ From Monitor] Pulse Rate [ Left Dorsalis Pedis] Pulse Rate [ 90 90 Throughout] Respiratory 21 Rate Respiratory 28 H 29 H Rate [ Throughout] Blood Pressure 137/84 O2 Sat by Pulse 100 Oximetry 10/07/18 10/07/18 10/07/18 09:31 10:00 10:31 Temperature Pulse Rate 94 H 95 H 95 H Pulse Rate [ From Monitor] Pulse Rate [ Left Dorsalis Pedis] Pulse Rate [ Throughout] Respiratory 31 H 34 H 20 Rate Respiratory Rate [ Throughout] Blood Pressure 137/84 132/93 132/93 O2 Sat by Pulse 100 99 100 Oximetry 10/07/18 10/07/18 10/07/18 11:00 11:31 11:36 Temperature Pulse Rate 87 90 90 Pulse Rate [ From Monitor] Pulse Rate [ Left Dorsalis Pedis] Pulse Rate [ Throughout] Respiratory 20 25 H 39 H Rate Respiratory Rate [ Throughout] Blood Pressure 136/87 136/87 136/87 O2 Sat by Pulse 100 100 100 Oximetry 10/07/18 10/07/18 11:39 12:00 Temperature 98.1 F Pulse Rate 92 H 93 H Pulse Rate [ From Monitor] Pulse Rate [ Left Dorsalis Pedis] Pulse Rate [ Throughout] Respiratory 22 Rate Respiratory Rate [ Throughout] Blood Pressure 136/87 148/91 O2 Sat by Pulse 100 100 Oximetry Constitutional: lethargic, agitated, appears uncomfortable, other (orally intubated ETT at 23cm) Eyes: non-icteric ENT: oropharynx moist, other (ETT 25 cm NIKA) Neck: supple, no lymphadenopathy, other (no thyromegaly) Effort: normal Ascultation: Bilateral: rhonchi (scant) Percussion: Bilateral: not dull Cardiovascular: regular rate and rhythm, other (S1,S2, no murmurs, gallps or rubs) Gastrointestinal: normoactive bowel sounds, soft, non-tender, non-distended Integumentary: rash Extremities: no cyanosis, pulses normal, no ischemia or petechiae, edema Neurologic: non-focal exam (grossly), pupils equal and round, motor strength normal and (weak ) Psychiatric: other (unable to assess) CBC and BMP: 10/07/18 04:20 10/07/18 04:20 ABG, PT/INR, D-dimer: ABG POC ABG pH 7.387 (7.35-7.45) 10/01/18 13:06 POC ABG pCO2 44.1 (35-45) 10/01/18 13:06 POC ABG pO2 83 (80-105) 10/01/18 13:06 POC ABG HCO3 26.5 10/01/18 13:06 POC ABG Total CO2 28 10/01/18 13:06 POC ABG O2 Sat 96 10/01/18 13:06 PT/INR, D-dimer PT 19.9 Sec. (12.2-14.9) H 09/21/18 15:00 INR 1.65 (0.87-1.13) H 09/21/18 15:00 Abnormal lab findings: Abnormal Labs 09/11/18 09/11/18 09/11/18 18:00 18:00 18:00 WBC 1.9 L* RBC Hgb Hct RDW Plt Count 130 L Seg Neuts % (Manual) Lymphocytes % (Manual) Monocytes % (Manual) 16.0 H Eosinophils % (Manual) Basophils % (Manual) Nucleated RBC % Seg Neutrophils # Man 0.9 L Abs Lymphs (Manual) Lymphocytes # (Manual) 0.5 L PT INR APTT Heparin Anti-Xa Level POC ABG pH POC ABG pCO2 POC ABG pO2 Sodium 131 L Potassium Chloride Carbon Dioxide 17 L BUN 21 H Creatinine Glucose 126 H POC Glucose Lactic Acid 2.60 H* Calcium 8.1 L Phosphorus Magnesium Iron TIBC Ferritin AST 123 H ALT 115 H Total Creatine Kinase Total Protein Albumin 3.0 L Vitamin B12 Folate TSH Free T4 CSF VDRL Lymph Enumerat CD4/CD8 Absolute CD3 Count % CD4 Cells Absolute CD4 Count % CD8 Cells Absolute CD19 Count T.pallidum Ab (FTA-ABS) HIV-1 RNA PCR copies/ml HIV-1 RNA (PCR) log Miscellaneous Test 09/11/18 09/13/18 09/13/18 19:01 04:28 07:31 WBC 2.0 L RBC Hgb Hct RDW Plt Count 116 L Seg Neuts % (Manual) Lymphocytes % (Manual) Monocytes % (Manual) 8.0 H Eosinophils % (Manual) Basophils % (Manual) Nucleated RBC % Seg Neutrophils # Man 1.0 L Abs Lymphs (Manual) Lymphocytes # (Manual) 0.5 L PT INR APTT Heparin Anti-Xa Level POC ABG pH POC ABG pCO2 POC ABG pO2 Sodium Potassium Chloride 110.4 H Carbon Dioxide 19 L BUN Creatinine Glucose POC Glucose Lactic Acid 3.70 H* Calcium 7.9 L Phosphorus Magnesium Iron TIBC Ferritin AST ALT Total Creatine Kinase Total Protein Albumin Vitamin B12 Folate TSH Free T4 CSF VDRL Lymph Enumerat CD4/CD8 Absolute CD3 Count % CD4 Cells Absolute CD4 Count % CD8 Cells Absolute CD19 Count T.pallidum Ab (FTA-ABS) HIV-1 RNA PCR copies/ml HIV-1 RNA (PCR) log Miscellaneous Test 09/13/18 09/13/18 09/13/18 07:31 12:29 12:29 WBC RBC Hgb Hct RDW Plt Count Seg Neuts % (Manual) Lymphocytes % (Manual) Monocytes % (Manual) Eosinophils % (Manual) Basophils % (Manual) Nucleated RBC % Seg Neutrophils # Man Abs Lymphs (Manual) 309 L Lymphocytes # (Manual) PT INR APTT Heparin Anti-Xa Level POC ABG pH POC ABG pCO2 POC ABG pO2 Sodium Potassium Chloride Carbon Dioxide BUN Creatinine Glucose POC Glucose Lactic Acid Calcium Phosphorus Magnesium Iron TIBC Ferritin AST 70 H ALT 68 H Total Creatine Kinase Total Protein Albumin 2.5 L Vitamin B12 Folate TSH Free T4 CSF VDRL Lymph Enumerat CD4/CD8 0.01 L Absolute CD3 Count 220 L % CD4 Cells 1 L Absolute CD4 Count 4 L % CD8 Cells 70 H Absolute CD19 Count 54 L T.pallidum Ab (FTA-ABS) HIV-1 RNA PCR copies/ml 36622 H HIV-1 RNA (PCR) log 4.71 H Miscellaneous Test 09/13/18 09/14/18 09/14/18 12:29 07:17 16:34 WBC RBC Hgb Hct RDW Plt Count Seg Neuts % (Manual) Lymphocytes % (Manual) Monocytes % (Manual) Eosinophils % (Manual) Basophils % (Manual) Nucleated RBC % Seg Neutrophils # Man Abs Lymphs (Manual) Lymphocytes # (Manual) PT INR APTT Heparin Anti-Xa Level POC ABG pH POC ABG pCO2 POC ABG pO2 Sodium Potassium 3.4 L Chloride Carbon Dioxide 18 L BUN Creatinine Glucose 104 H POC Glucose Lactic Acid Calcium 7.6 L Phosphorus Magnesium Iron TIBC Ferritin AST 49 H ALT Total Creatine Kinase Total Protein Albumin 2.5 L Vitamin B12 Folate TSH Free T4 CSF VDRL Lymph Enumerat CD4/CD8 Absolute CD3 Count % CD4 Cells Absolute CD4 Count % CD8 Cells Absolute CD19 Count T.pallidum Ab (FTA-ABS) Reactive H HIV-1 RNA PCR copies/ml HIV-1 RNA (PCR) log Miscellaneous Test Flexitest 1 H 09/15/18 09/15/18 09/15/18 05:05 05:05 Unknown WBC 1.6 L* RBC Hgb 10.4 L Hct 31.1 L D RDW Plt Count 113 L Seg Neuts % (Manual) Lymphocytes % (Manual) Monocytes % (Manual) Eosinophils % (Manual) Basophils % (Manual) Nucleated RBC % Seg Neutrophils # Man Abs Lymphs (Manual) Lymphocytes # (Manual) PT INR APTT Heparin Anti-Xa Level POC ABG pH POC ABG pCO2 POC ABG pO2 Sodium Potassium Chloride 107.9 H Carbon Dioxide 18 L BUN 6 L Creatinine Glucose POC Glucose Lactic Acid Calcium 7.4 L Phosphorus Magnesium Iron TIBC Ferritin AST ALT Total Creatine Kinase Total Protein Albumin Vitamin B12 Folate TSH Free T4 CSF VDRL Reactive 1:8 H Lymph Enumerat CD4/CD8 Absolute CD3 Count % CD4 Cells Absolute CD4 Count % CD8 Cells Absolute CD19 Count T.pallidum Ab (FTA-ABS) HIV-1 RNA PCR copies/ml HIV-1 RNA (PCR) log Miscellaneous Test 09/16/18 09/16/18 09/16/18 06:55 11:41 11:41 WBC 2.8 L RBC Hgb 10.9 L Hct 33.5 L RDW Plt Count 135 L Seg Neuts % (Manual) Lymphocytes % (Manual) Monocytes % (Manual) Eosinophils % (Manual) Basophils % (Manual) Nucleated RBC % Seg Neutrophils # Man Abs Lymphs (Manual) Lymphocytes # (Manual) PT INR APTT Heparin Anti-Xa Level POC ABG pH POC ABG pCO2 POC ABG pO2 Sodium Potassium Chloride Carbon Dioxide BUN Creatinine Glucose POC Glucose Lactic Acid Calcium Phosphorus Magnesium Iron TIBC Ferritin AST ALT Total Creatine Kinase Total Protein Albumin Vitamin B12 Folate TSH 4.210 H Free T4 0.72 L CSF VDRL Lymph Enumerat CD4/CD8 Absolute CD3 Count % CD4 Cells Absolute CD4 Count % CD8 Cells Absolute CD19 Count T.pallidum Ab (FTA-ABS) HIV-1 RNA PCR copies/ml HIV-1 RNA (PCR) log Miscellaneous Test 09/16/18 09/16/18 09/17/18 11:41 15:43 05:13 WBC 2.0 L RBC Hgb 10.9 L Hct 32.7 L RDW Plt Count Seg Neuts % (Manual) Lymphocytes % (Manual) Monocytes % (Manual) Eosinophils % (Manual) Basophils % (Manual) Nucleated RBC % Seg Neutrophils # Man Abs Lymphs (Manual) Lymphocytes # (Manual) PT INR APTT Heparin Anti-Xa Level POC ABG pH POC ABG pCO2 29.3 L POC ABG pO2 70 L Sodium Potassium Chloride Carbon Dioxide BUN Creatinine Glucose POC Glucose Lactic Acid Calcium Phosphorus Magnesium Iron TIBC Ferritin AST ALT Total Creatine Kinase Total Protein Albumin Vitamin B12 934.5 H Folate TSH Free T4 CSF VDRL Lymph Enumerat CD4/CD8 Absolute CD3 Count % CD4 Cells Absolute CD4 Count % CD8 Cells Absolute CD19 Count T.pallidum Ab (FTA-ABS) HIV-1 RNA PCR copies/ml HIV-1 RNA (PCR) log Miscellaneous Test 09/17/18 09/17/18 09/18/18 05:13 21:57 12:46 WBC RBC Hgb Hct RDW Plt Count Seg Neuts % (Manual) Lymphocytes % (Manual) Monocytes % (Manual) Eosinophils % (Manual) Basophils % (Manual) Nucleated RBC % Seg Neutrophils # Man Abs Lymphs (Manual) Lymphocytes # (Manual) PT INR APTT Heparin Anti-Xa Level POC ABG pH POC ABG pCO2 POC ABG pO2 Sodium Potassium Chloride 107.2 H Carbon Dioxide 21 L BUN 3 L Creatinine 0.7 L Glucose POC Glucose 108 H Lactic Acid Calcium 7.9 L Phosphorus Magnesium Iron TIBC Ferritin AST ALT Total Creatine Kinase Total Protein 6.1 L Albumin 2.6 L Vitamin B12 Folate TSH Free T4 0.75 L CSF VDRL Lymph Enumerat CD4/CD8 Absolute CD3 Count % CD4 Cells Absolute CD4 Count % CD8 Cells Absolute CD19 Count T.pallidum Ab (FTA-ABS) HIV-1 RNA PCR copies/ml HIV-1 RNA (PCR) log Miscellaneous Test 09/18/18 09/19/18 09/19/18 12:46 04:57 04:57 WBC 2.1 L RBC Hgb 11.4 L Hct 34.2 L RDW Plt Count Seg Neuts % (Manual) Lymphocytes % (Manual) Monocytes % (Manual) Eosinophils % (Manual) Basophils % (Manual) Nucleated RBC % Seg Neutrophils # Man Abs Lymphs (Manual) Lymphocytes # (Manual) PT INR APTT Heparin Anti-Xa Level POC ABG pH POC ABG pCO2 POC ABG pO2 Sodium Potassium Chloride Carbon Dioxide 19 L BUN 6 L Creatinine Glucose POC Glucose Lactic Acid Calcium 7.9 L Phosphorus Magnesium Iron TIBC Ferritin AST ALT Total Creatine Kinase Total Protein Albumin Vitamin B12 Folate TSH 5.190 H Free T4 CSF VDRL Lymph Enumerat CD4/CD8 Absolute CD3 Count % CD4 Cells Absolute CD4 Count % CD8 Cells Absolute CD19 Count T.pallidum Ab (FTA-ABS) HIV-1 RNA PCR copies/ml HIV-1 RNA (PCR) log Miscellaneous Test 09/19/18 09/19/18 09/20/18 15:00 15:00 05:33 WBC RBC Hgb Hct RDW Plt Count Seg Neuts % (Manual) Lymphocytes % (Manual) Monocytes % (Manual) Eosinophils % (Manual) Basophils % (Manual) Nucleated RBC % Seg Neutrophils # Man Abs Lymphs (Manual) Lymphocytes # (Manual) PT INR APTT Heparin Anti-Xa Level POC ABG pH POC ABG pCO2 POC ABG pO2 Sodium 136 L Potassium Chloride Carbon Dioxide 19 L BUN 7 L Creatinine Glucose POC Glucose Lactic Acid Calcium Phosphorus Magnesium Iron TIBC Ferritin AST ALT Total Creatine Kinase Total Protein Albumin Vitamin B12 Folate TSH Free T4 CSF VDRL Reactive 1:4 H Lymph Enumerat CD4/CD8 Absolute CD3 Count % CD4 Cells Absolute CD4 Count % CD8 Cells Absolute CD19 Count T.pallidum Ab (FTA-ABS) HIV-1 RNA PCR copies/ml HIV-1 RNA (PCR) log Miscellaneous Test Flexitest 1 H 09/20/18 09/21/18 09/21/18 06:52 01:06 03:49 WBC 2.5 L RBC Hgb Hct RDW Plt Count Seg Neuts % (Manual) Lymphocytes % (Manual) Monocytes % (Manual) Eosinophils % (Manual) Basophils % (Manual) Nucleated RBC % Seg Neutrophils # Man Abs Lymphs (Manual) Lymphocytes # (Manual) PT INR APTT Heparin Anti-Xa Level POC ABG pH 7.159 L POC ABG pCO2 32.9 L 70.0 H POC ABG pO2 62 L 254 H Sodium Potassium Chloride Carbon Dioxide BUN Creatinine Glucose POC Glucose Lactic Acid Calcium Phosphorus Magnesium Iron TIBC Ferritin AST ALT Total Creatine Kinase Total Protein Albumin Vitamin B12 Folate TSH Free T4 CSF VDRL Lymph Enumerat CD4/CD8 Absolute CD3 Count % CD4 Cells Absolute CD4 Count % CD8 Cells Absolute CD19 Count T.pallidum Ab (FTA-ABS) HIV-1 RNA PCR copies/ml HIV-1 RNA (PCR) log Miscellaneous Test 09/21/18 09/21/18 09/21/18 04:15 04:15 04:25 WBC 3.1 L RBC Hgb 11.6 L Hct RDW Plt Count Seg Neuts % (Manual) Lymphocytes % (Manual) Monocytes % (Manual) 12.0 H Eosinophils % (Manual) Basophils % (Manual) Nucleated RBC % Seg Neutrophils # Man 1.6 L Abs Lymphs (Manual) Lymphocytes # (Manual) 0.5 L PT INR APTT Heparin Anti-Xa Level POC ABG pH POC ABG pCO2 POC ABG pO2 Sodium Potassium 6.1 H* D Chloride Carbon Dioxide 19 L BUN Creatinine Glucose 108 H POC Glucose Lactic Acid Calcium Phosphorus Magnesium Iron TIBC Ferritin AST ALT Total Creatine Kinase 685 H Total Protein Albumin Vitamin B12 Folate TSH Free T4 CSF VDRL Lymph Enumerat CD4/CD8 Absolute CD3 Count % CD4 Cells Absolute CD4 Count % CD8 Cells Absolute CD19 Count T.pallidum Ab (FTA-ABS) HIV-1 RNA PCR copies/ml HIV-1 RNA (PCR) log Miscellaneous Test 09/21/18 09/21/18 09/21/18 09:59 10:07 11:00 WBC RBC Hgb 11.7 L Hct RDW Plt Count Seg Neuts % (Manual) Lymphocytes % (Manual) Monocytes % (Manual) Eosinophils % (Manual) Basophils % (Manual) Nucleated RBC % Seg Neutrophils # Man Abs Lymphs (Manual) Lymphocytes # (Manual) PT INR APTT Heparin Anti-Xa Level POC ABG pH 7.301 L POC ABG pCO2 POC ABG pO2 109 H Sodium Potassium 6.5 H* Chloride Carbon Dioxide 18 L BUN Creatinine 2.1 H D Glucose POC Glucose Lactic Acid Calcium 8.1 L Phosphorus Magnesium Iron TIBC Ferritin AST 94 H ALT Total Creatine Kinase Total Protein Albumin 2.8 L Vitamin B12 Folate TSH Free T4 CSF VDRL Lymph Enumerat CD4/CD8 Absolute CD3 Count % CD4 Cells Absolute CD4 Count % CD8 Cells Absolute CD19 Count T.pallidum Ab (FTA-ABS) HIV-1 RNA PCR copies/ml HIV-1 RNA (PCR) log Miscellaneous Test 09/21/18 09/21/18 09/21/18 15:00 21:54 21:54 WBC RBC Hgb Hct RDW Plt Count Seg Neuts % (Manual) Lymphocytes % (Manual) Monocytes % (Manual) Eosinophils % (Manual) Basophils % (Manual) Nucleated RBC % Seg Neutrophils # Man Abs Lymphs (Manual) Lymphocytes # (Manual) PT 19.9 H INR 1.65 H APTT 40.9 H Heparin Anti-Xa Level 0.98 H POC ABG pH POC ABG pCO2 POC ABG pO2 Sodium Potassium 5.2 H Chloride Carbon Dioxide BUN Creatinine Glucose POC Glucose Lactic Acid Calcium Phosphorus Magnesium Iron TIBC Ferritin AST ALT Total Creatine Kinase Total Protein Albumin Vitamin B12 Folate TSH Free T4 CSF VDRL Lymph Enumerat CD4/CD8 Absolute CD3 Count % CD4 Cells Absolute CD4 Count % CD8 Cells Absolute CD19 Count T.pallidum Ab (FTA-ABS) HIV-1 RNA PCR copies/ml HIV-1 RNA (PCR) log Miscellaneous Test 09/21/18 09/22/18 09/22/18 22:57 03:01 05:27 WBC RBC Hgb Hct RDW Plt Count Seg Neuts % (Manual) Lymphocytes % (Manual) Monocytes % (Manual) Eosinophils % (Manual) Basophils % (Manual) Nucleated RBC % Seg Neutrophils # Man Abs Lymphs (Manual) Lymphocytes # (Manual) PT INR APTT Heparin Anti-Xa Level POC ABG pH POC ABG pCO2 32.7 L POC ABG pO2 Sodium Potassium Chloride Carbon Dioxide BUN Creatinine Glucose POC Glucose 124 H 128 H Lactic Acid Calcium Phosphorus Magnesium Iron TIBC Ferritin AST ALT Total Creatine Kinase Total Protein Albumin Vitamin B12 Folate TSH Free T4 CSF VDRL Lymph Enumerat CD4/CD8 Absolute CD3 Count % CD4 Cells Absolute CD4 Count % CD8 Cells Absolute CD19 Count T.pallidum Ab (FTA-ABS) HIV-1 RNA PCR copies/ml HIV-1 RNA (PCR) log Miscellaneous Test 09/22/18 09/22/18 09/22/18 07:00 07:00 11:32 WBC 1.8 L* RBC 3.59 L Hgb 10.1 L Hct 30.8 L RDW Plt Count 126 L Seg Neuts % (Manual) Lymphocytes % (Manual) Monocytes % (Manual) Eosinophils % (Manual) Basophils % (Manual) Nucleated RBC % Seg Neutrophils # Man Abs Lymphs (Manual) Lymphocytes # (Manual) PT INR APTT Heparin Anti-Xa Level POC ABG pH POC ABG pCO2 POC ABG pO2 Sodium Potassium Chloride Carbon Dioxide BUN 27 H Creatinine 2.0 H Glucose 128 H POC Glucose 123 H Lactic Acid Calcium 6.9 L Phosphorus Magnesium Iron TIBC Ferritin AST ALT Total Creatine Kinase Total Protein Albumin Vitamin B12 Folate TSH Free T4 CSF VDRL Lymph Enumerat CD4/CD8 Absolute CD3 Count % CD4 Cells Absolute CD4 Count % CD8 Cells Absolute CD19 Count T.pallidum Ab (FTA-ABS) HIV-1 RNA PCR copies/ml HIV-1 RNA (PCR) log Miscellaneous Test 09/22/18 09/22/18 09/22/18 15:52 18:18 23:52 WBC RBC Hgb Hct RDW Plt Count Seg Neuts % (Manual) Lymphocytes % (Manual) Monocytes % (Manual) Eosinophils % (Manual) Basophils % (Manual) Nucleated RBC % Seg Neutrophils # Man Abs Lymphs (Manual) Lymphocytes # (Manual) PT INR APTT Heparin Anti-Xa Level POC ABG pH POC ABG pCO2 48.7 H POC ABG pO2 Sodium Potassium Chloride Carbon Dioxide BUN Creatinine Glucose POC Glucose 110 H 124 H Lactic Acid Calcium Phosphorus Magnesium Iron TIBC Ferritin AST ALT Total Creatine Kinase Total Protein Albumin Vitamin B12 Folate TSH Free T4 CSF VDRL Lymph Enumerat CD4/CD8 Absolute CD3 Count % CD4 Cells Absolute CD4 Count % CD8 Cells Absolute CD19 Count T.pallidum Ab (FTA-ABS) HIV-1 RNA PCR copies/ml HIV-1 RNA (PCR) log Miscellaneous Test 09/23/18 09/23/18 09/23/18 04:10 05:55 05:55 WBC RBC Hgb 10.0 L Hct 30.3 L RDW Plt Count 117 L Seg Neuts % (Manual) Lymphocytes % (Manual) Monocytes % (Manual) Eosinophils % (Manual) Basophils % (Manual) Nucleated RBC % Seg Neutrophils # Man Abs Lymphs (Manual) Lymphocytes # (Manual) PT INR APTT Heparin Anti-Xa Level 0.26 L POC ABG pH POC ABG pCO2 POC ABG pO2 144 H Sodium Potassium Chloride Carbon Dioxide BUN Creatinine Glucose POC Glucose Lactic Acid Calcium Phosphorus Magnesium Iron TIBC Ferritin AST ALT Total Creatine Kinase Total Protein Albumin Vitamin B12 Folate TSH Free T4 CSF VDRL Lymph Enumerat CD4/CD8 Absolute CD3 Count % CD4 Cells Absolute CD4 Count % CD8 Cells Absolute CD19 Count T.pallidum Ab (FTA-ABS) HIV-1 RNA PCR copies/ml HIV-1 RNA (PCR) log Miscellaneous Test 09/23/18 09/23/18 09/23/18 08:10 08:10 23:57 WBC 1.3 L* RBC 3.53 L Hgb 9.9 L Hct 30.0 L RDW Plt Count 119 L Seg Neuts % (Manual) Lymphocytes % (Manual) Monocytes % (Manual) Eosinophils % (Manual) Basophils % (Manual) Nucleated RBC % Seg Neutrophils # Man Abs Lymphs (Manual) Lymphocytes # (Manual) PT INR APTT Heparin Anti-Xa Level POC ABG pH POC ABG pCO2 POC ABG pO2 Sodium Potassium Chloride Carbon Dioxide BUN Creatinine Glucose 122 H POC Glucose 115 H Lactic Acid Calcium 6.9 L Phosphorus Magnesium Iron TIBC Ferritin AST ALT Total Creatine Kinase Total Protein Albumin Vitamin B12 Folate TSH Free T4 CSF VDRL Lymph Enumerat CD4/CD8 Absolute CD3 Count % CD4 Cells Absolute CD4 Count % CD8 Cells Absolute CD19 Count T.pallidum Ab (FTA-ABS) HIV-1 RNA PCR copies/ml HIV-1 RNA (PCR) log Miscellaneous Test 09/24/18 09/24/1819 12:04 14:42 18:10 WBC RBC Hgb Hct RDW Plt Count Seg Neuts % (Manual) Lymphocytes % (Manual) Monocytes % (Manual) Eosinophils % (Manual) Basophils % (Manual) Nucleated RBC % Seg Neutrophils # Man Abs Lymphs (Manual) Lymphocytes # (Manual) PT INR APTT Heparin Anti-Xa Level 0.76 H POC ABG pH POC ABG pCO2 POC ABG pO2 Sodium Potassium Chloride Carbon Dioxide BUN Creatinine Glucose POC Glucose 111 H 138 H Lactic Acid Calcium Phosphorus Magnesium Iron TIBC Ferritin AST ALT Total Creatine Kinase Total Protein Albumin Vitamin B12 Folate TSH Free T4 CSF VDRL Lymph Enumerat CD4/CD8 Absolute CD3 Count % CD4 Cells Absolute CD4 Count % CD8 Cells Absolute CD19 Count T.pallidum Ab (FTA-ABS) HIV-1 RNA PCR copies/ml HIV-1 RNA (PCR) log Miscellaneous Test 09/25/18 09/25/18 09/25/18 03:45 04:24 14:20 WBC RBC Hgb 9.7 L Hct 29.4 L RDW Plt Count 104 L Seg Neuts % (Manual) Lymphocytes % (Manual) Monocytes % (Manual) Eosinophils % (Manual) Basophils % (Manual) Nucleated RBC % Seg Neutrophils # Man Abs Lymphs (Manual) Lymphocytes # (Manual) PT INR APTT Heparin Anti-Xa Level POC ABG pH 7.460 H POC ABG pCO2 32.9 L POC ABG pO2 Sodium Potassium 3.5 L Chloride 110.3 H Carbon Dioxide BUN Creatinine Glucose 105 H POC Glucose Lactic Acid Calcium 6.7 L Phosphorus Magnesium Iron TIBC Ferritin AST 633 H ALT 481 H Total Creatine Kinase Total Protein 4.8 L D Albumin 1.9 L Vitamin B12 Folate TSH Free T4 CSF VDRL Lymph Enumerat CD4/CD8 Absolute CD3 Count % CD4 Cells Absolute CD4 Count % CD8 Cells Absolute CD19 Count T.pallidum Ab (FTA-ABS) HIV-1 RNA PCR copies/ml HIV-1 RNA (PCR) log Miscellaneous Test 09/26/18 09/26/18 09/26/18 06:15 06:15 10:43 WBC 1.2 L* RBC 3.32 L Hgb 9.2 L Hct 28.6 L RDW Plt Count 97 L Seg Neuts % (Manual) 24.0 L Lymphocytes % (Manual) 43.0 H Monocytes % (Manual) 19.0 H Eosinophils % (Manual) 8.0 H Basophils % (Manual) 2.0 H Nucleated RBC % 3.0 H Seg Neutrophils # Man 0.0 L Abs Lymphs (Manual) Lymphocytes # (Manual) 0.0 L PT INR APTT Heparin Anti-Xa Level POC ABG pH 7.459 H POC ABG pCO2 POC ABG pO2 141 H Sodium Potassium Chloride 112.8 H Carbon Dioxide BUN Creatinine Glucose 110 H POC Glucose Lactic Acid Calcium 7.0 L Phosphorus 0.90 L* Magnesium Iron TIBC Ferritin AST 362 H ALT 360 H Total Creatine Kinase Total Protein 4.9 L Albumin 1.5 L Vitamin B12 Folate TSH Free T4 CSF VDRL Lymph Enumerat CD4/CD8 Absolute CD3 Count % CD4 Cells Absolute CD4 Count % CD8 Cells Absolute CD19 Count T.pallidum Ab (FTA-ABS) HIV-1 RNA PCR copies/ml HIV-1 RNA (PCR) log Miscellaneous Test 09/26/18 09/27/18 09/28/18 13:56 04:11 07:49 WBC RBC Hgb 9.1 L Hct 29.1 L RDW Plt Count 96 L Seg Neuts % (Manual) Lymphocytes % (Manual) Monocytes % (Manual) Eosinophils % (Manual) Basophils % (Manual) Nucleated RBC % Seg Neutrophils # Man Abs Lymphs (Manual) Lymphocytes # (Manual) PT INR APTT Heparin Anti-Xa Level POC ABG pH POC ABG pCO2 POC ABG pO2 Sodium 146 H Potassium Chloride 111.6 H Carbon Dioxide BUN Creatinine Glucose POC Glucose 135 H Lactic Acid Calcium 7.4 L Phosphorus Magnesium Iron TIBC Ferritin AST ALT Total Creatine Kinase Total Protein Albumin Vitamin B12 Folate TSH Free T4 CSF VDRL Lymph Enumerat CD4/CD8 Absolute CD3 Count % CD4 Cells Absolute CD4 Count % CD8 Cells Absolute CD19 Count T.pallidum Ab (FTA-ABS) HIV-1 RNA PCR copies/ml HIV-1 RNA (PCR) log Miscellaneous Test 09/28/18 09/29/18 09/29/18 10:43 05:00 05:00 WBC 1.2 L* RBC 3.13 L Hgb 8.6 L Hct 27.3 L RDW Plt Count 137 L Seg Neuts % (Manual) Lymphocytes % (Manual) Monocytes % (Manual) 16.0 H Eosinophils % (Manual) Basophils % (Manual) Nucleated RBC % 4.0 H Seg Neutrophils # Man 0.5 L Abs Lymphs (Manual) Lymphocytes # (Manual) 0.3 L PT INR APTT Heparin Anti-Xa Level POC ABG pH 7.300 L POC ABG pCO2 53.9 H POC ABG pO2 Sodium 147 H Potassium 3.4 L Chloride 114.5 H Carbon Dioxide BUN Creatinine Glucose POC Glucose Lactic Acid Calcium 7.7 L Phosphorus Magnesium Iron TIBC Ferritin AST 69 H ALT 110 H Total Creatine Kinase Total Protein 5.2 L Albumin 1.9 L Vitamin B12 Folate TSH Free T4 CSF VDRL Lymph Enumerat CD4/CD8 Absolute CD3 Count % CD4 Cells Absolute CD4 Count % CD8 Cells Absolute CD19 Count T.pallidum Ab (FTA-ABS) HIV-1 RNA PCR copies/ml HIV-1 RNA (PCR) log Miscellaneous Test 09/29/18 09/29/18 09/30/18 06:07 13:22 05:19 WBC 0.9 L* RBC 3.03 L Hgb 8.6 L Hct 25.9 L RDW Plt Count Seg Neuts % (Manual) Lymphocytes % (Manual) Monocytes % (Manual) Eosinophils % (Manual) Basophils % (Manual) Nucleated RBC % Seg Neutrophils # Man Abs Lymphs (Manual) Lymphocytes # (Manual) PT INR APTT Heparin Anti-Xa Level POC ABG pH POC ABG pCO2 46.9 H POC ABG pO2 Sodium Potassium Chloride Carbon Dioxide BUN Creatinine Glucose POC Glucose 109 H Lactic Acid Calcium Phosphorus Magnesium Iron TIBC Ferritin AST ALT Total Creatine Kinase Total Protein Albumin Vitamin B12 Folate TSH Free T4 CSF VDRL Lymph Enumerat CD4/CD8 Absolute CD3 Count % CD4 Cells Absolute CD4 Count % CD8 Cells Absolute CD19 Count T.pallidum Ab (FTA-ABS) HIV-1 RNA PCR copies/ml HIV-1 RNA (PCR) log Miscellaneous Test 09/30/18 09/30/18 09/30/18 05:19 11:14 23:28 WBC RBC Hgb Hct RDW Plt Count Seg Neuts % (Manual) Lymphocytes % (Manual) Monocytes % (Manual) Eosinophils % (Manual) Basophils % (Manual) Nucleated RBC % Seg Neutrophils # Man Abs Lymphs (Manual) Lymphocytes # (Manual) PT INR APTT Heparin Anti-Xa Level 0.72 H POC ABG pH POC ABG pCO2 46.6 H POC ABG pO2 Sodium 150 H Potassium Chloride 115.2 H Carbon Dioxide BUN Creatinine Glucose POC Glucose Lactic Acid Calcium 7.9 L Phosphorus Magnesium Iron TIBC Ferritin AST ALT Total Creatine Kinase Total Protein Albumin Vitamin B12 Folate TSH Free T4 CSF VDRL Lymph Enumerat CD4/CD8 Absolute CD3 Count % CD4 Cells Absolute CD4 Count % CD8 Cells Absolute CD19 Count T.pallidum Ab (FTA-ABS) HIV-1 RNA PCR copies/ml HIV-1 RNA (PCR) log Miscellaneous Test 10/01/18 10/01/18 10/02/18 04:55 04:55 07:15 WBC 0.9 L* 0.7 L* RBC 3.01 L 2.92 L Hgb 8.4 L 8.4 L Hct 26.0 L 24.9 L RDW Plt Count Seg Neuts % (Manual) Lymphocytes % (Manual) Monocytes % (Manual) Eosinophils % (Manual) Basophils % (Manual) Nucleated RBC % Seg Neutrophils # Man Abs Lymphs (Manual) Lymphocytes # (Manual) PT INR APTT Heparin Anti-Xa Level POC ABG pH POC ABG pCO2 POC ABG pO2 Sodium 147 H Potassium 3.4 L Chloride 113.1 H Carbon Dioxide BUN 22 H Creatinine Glucose POC Glucose Lactic Acid Calcium 7.3 L Phosphorus Magnesium Iron TIBC Ferritin AST ALT Total Creatine Kinase Total Protein Albumin Vitamin B12 Folate TSH Free T4 CSF VDRL Lymph Enumerat CD4/CD8 Absolute CD3 Count % CD4 Cells Absolute CD4 Count % CD8 Cells Absolute CD19 Count T.pallidum Ab (FTA-ABS) HIV-1 RNA PCR copies/ml HIV-1 RNA (PCR) log Miscellaneous Test 10/02/18 10/03/18 10/03/18 07:15 06:12 06:12 WBC 0.8 L* RBC 2.96 L Hgb 8.5 L Hct 25.9 L RDW 15.4 H Plt Count Seg Neuts % (Manual) Lymphocytes % (Manual) Monocytes % (Manual) Eosinophils % (Manual) Basophils % (Manual) Nucleated RBC % Seg Neutrophils # Man Abs Lymphs (Manual) Lymphocytes # (Manual) PT INR APTT Heparin Anti-Xa Level POC ABG pH POC ABG pCO2 POC ABG pO2 Sodium Potassium 3.4 L 3.4 L Chloride 108.3 H Carbon Dioxide BUN Creatinine Glucose POC Glucose Lactic Acid Calcium 7.6 L 7.4 L Phosphorus Magnesium Iron TIBC Ferritin AST ALT Total Creatine Kinase Total Protein Albumin Vitamin B12 Folate TSH Free T4 CSF VDRL Lymph Enumerat CD4/CD8 Absolute CD3 Count % CD4 Cells Absolute CD4 Count % CD8 Cells Absolute CD19 Count T.pallidum Ab (FTA-ABS) HIV-1 RNA PCR copies/ml HIV-1 RNA (PCR) log Miscellaneous Test 10/03/18 10/03/18 10/04/18 11:45 13:23 01:40 WBC RBC Hgb Hct RDW Plt Count Seg Neuts % (Manual) Lymphocytes % (Manual) Monocytes % (Manual) Eosinophils % (Manual) Basophils % (Manual) Nucleated RBC % Seg Neutrophils # Man Abs Lymphs (Manual) Lymphocytes # (Manual) PT INR APTT Heparin Anti-Xa Level 1.34 H 0.26 L POC ABG pH POC ABG pCO2 POC ABG pO2 Sodium Potassium Chloride Carbon Dioxide BUN Creatinine Glucose POC Glucose Lactic Acid Calcium Phosphorus Magnesium 1.40 L Iron TIBC Ferritin AST ALT Total Creatine Kinase Total Protein Albumin Vitamin B12 Folate TSH Free T4 CSF VDRL Lymph Enumerat CD4/CD8 Absolute CD3 Count % CD4 Cells Absolute CD4 Count % CD8 Cells Absolute CD19 Count T.pallidum Ab (FTA-ABS) HIV-1 RNA PCR copies/ml HIV-1 RNA (PCR) log Miscellaneous Test 10/04/18 10/04/18 10/06/18 04:45 04:45 09:40 WBC 0.8 L* RBC 3.11 L Hgb 9.0 L Hct 27.4 L RDW 15.4 H Plt Count Seg Neuts % (Manual) Lymphocytes % (Manual) Monocytes % (Manual) Eosinophils % (Manual) Basophils % (Manual) Nucleated RBC % Seg Neutrophils # Man Abs Lymphs (Manual) Lymphocytes # (Manual) PT INR APTT Heparin Anti-Xa Level POC ABG pH POC ABG pCO2 POC ABG pO2 Sodium Potassium Chloride Carbon Dioxide BUN Creatinine 0.7 L Glucose POC Glucose Lactic Acid Calcium 7.5 L Phosphorus Magnesium Iron 35 L TIBC 157 L Ferritin AST ALT Total Creatine Kinase Total Protein Albumin Vitamin B12 Folate TSH Free T4 CSF VDRL Lymph Enumerat CD4/CD8 Absolute CD3 Count % CD4 Cells Absolute CD4 Count % CD8 Cells Absolute CD19 Count T.pallidum Ab (FTA-ABS) HIV-1 RNA PCR copies/ml HIV-1 RNA (PCR) log Miscellaneous Test 10/06/18 10/06/18 10/07/18 09:40 09:40 04:20 WBC 1.1 L* RBC 3.07 L Hgb 9.1 L Hct 27.3 L RDW 20.3 H Plt Count Seg Neuts % (Manual) Lymphocytes % (Manual) Monocytes % (Manual) Eosinophils % (Manual) Basophils % (Manual) Nucleated RBC % Seg Neutrophils # Man 0.7 L Abs Lymphs (Manual) Lymphocytes # (Manual) 0.3 L PT INR APTT Heparin Anti-Xa Level POC ABG pH POC ABG pCO2 POC ABG pO2 Sodium Potassium Chloride Carbon Dioxide BUN Creatinine Glucose POC Glucose Lactic Acid Calcium Phosphorus Magnesium Iron TIBC Ferritin 1126.0 H AST ALT Total Creatine Kinase Total Protein Albumin Vitamin B12 Folate 6.71 L TSH Free T4 CSF VDRL Lymph Enumerat CD4/CD8 Absolute CD3 Count % CD4 Cells Absolute CD4 Count % CD8 Cells Absolute CD19 Count T.pallidum Ab (FTA-ABS) HIV-1 RNA PCR copies/ml HIV-1 RNA (PCR) log Miscellaneous Test 10/07/18 04:20 WBC RBC Hgb Hct RDW Plt Count Seg Neuts % (Manual) Lymphocytes % (Manual) Monocytes % (Manual) Eosinophils % (Manual) Basophils % (Manual) Nucleated RBC % Seg Neutrophils # Man Abs Lymphs (Manual) Lymphocytes # (Manual) PT INR APTT Heparin Anti-Xa Level POC ABG pH POC ABG pCO2 POC ABG pO2 Sodium Potassium Chloride Carbon Dioxide BUN Creatinine 0.7 L Glucose POC Glucose Lactic Acid Calcium 7.9 L Phosphorus Magnesium Iron TIBC Ferritin AST ALT Total Creatine Kinase Total Protein 5.5 L Albumin 2.2 L Vitamin B12 Folate TSH Free T4 CSF VDRL Lymph Enumerat CD4/CD8 Absolute CD3 Count % CD4 Cells Absolute CD4 Count % CD8 Cells Absolute CD19 Count T.pallidum Ab (FTA-ABS) HIV-1 RNA PCR copies/ml HIV-1 RNA (PCR) log Miscellaneous Test Allied health notes reviewed: RT
--- NOTE | 2018-10-07 12:40 | Progress Note ---
Assessment and Plan Cultures: 09/11/2018 blood culture: no growth 09/13/2018 serum cryptococcus ag neg 09/14/2018 CSF cryptococcus ag neg 09/14/2018 stool Nona 09/15/2018 stool +Giardia ag 09/19/2018 CSF cryptococcus ag neg 09/21/2018 tracheal aspirate culture: Nona albicans 09/23/2018 blood culture: No growth 09/23/2018 Fungal blood culture: no growth thus far A/P: 33 y/o male with no PMH; admitted on 09/11/2018 due to 4 days-AMS/behavioral changes, nausea, vomiting, diarrhea, weight loss and cough: 1) Low grade fevers: shock resolved. ?HIV related, v/s CMV related. Fevers have also resolved since initiation of HAART. Cultures have negative thus far. Completed 10 days of Ceftriaxone, off since 10/03/2018. 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 WBC remains low could be from CMV v/s ganciclovir. Clinically better - CMV DNA PCR 09/16/2018 is 1,058,978, 6 log - CMV DNA PCR 09/26/2018 is 710K, 5.85 log - CMV DNA PCR 10/03/2018 is 262,190, 5.4 log 3) Acute respiratory failure: still on the vent, mainly due to mental status issues. PJP DFA negative. CXR stable without pneumonia. 4) Acute encephalopathy: possibly from neurosyphilis v/s CMV encephalitis v/s metabolic etiology. Of note, MRI did not show ventriculitis. CSF YAYO virus DNA PCR neg. Toxo IgG negative. He has received 20 days of Pen G IV and Ganciclovir with minimal improvement, still somnolent and nystagmus noted ? neurosyphilis treatement failure ? other etiologies like seizures, metabolic, CVA 5) Neurosyphilis: CSF VDRL positive, off Ceftriaxone and back on IV Penicillin (will complete 21 days). 6) Diarrhea: likely due to Giardiasis as Giardia antigen positive in stool, in immunocompromised patient. Completed several days of Flagyl, stopped on 10/03/2018. 7) Oral candidiasis: on fluconazole, will need to continue as prophylaxis till immune reconstitution. 8) A.fib: cardiology following. On Amiodarone. 9) HIV/AIDS: newly diagnosed. Risk factor is MSM behavior. CD4=4. VL=50,700. 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 We started him on Tenofovir, Emtricitabine + Dolutegravir on 09/30/2018, watch closely for IRIS. 10) Neutropenia: likely from HIV/CMV myelosuppression. Also probably worse from ganciclovir. r/o disseminated MAC, thus far cultures negative. s/p neupogen 1 dose on 10/05/2018 11) MAL: resolved. creatinine stable and improved. Recs: - if mentation is not better by Wednesday will repeat LP and brain MRI - discussed with neuro EEG no seizures - continue IV Penicillin G 24 million units daily (D20 ) - continue IV Ganciclovir 5 mg/kg q12 hrs, continue till CMV PCR is <200 - continue atovaquone and azithromycin prophylaxis - continue fluconazole 200 mg daily PO as prophylaxis - continue HAART: Tenofovir, Emtricitabine + Dolutegravir watch closely for IRIS - monitor daily CBC, BMP - s/p neupogen 1 dose on 10/05/2018, hematology on board now, agree with additional Neupogen as needed from ID standpoint I am covering this weekend Alayna Menendez MD Infectious Diseases [employer] [facility] M [phone] O [phone] Subjective Date of service: 10/07/18 Principal diagnosis: Severe sepsis; Ac hypoxemic Resp failure; [place]. Pneumonia; Ac encephalopathy Interval history: Patient remains lethargic intubated on CPAP but open eyes. No fever ROS: unable to obtain Objective - Exam Narrative Exam: Constitutional: Intubated somnolent open eyes in NAD Head, Ears, Nose: Normocephalic, atraumatic. External ears, nose normal Eyes: Conjunctivae/corneas clear. No icterus. No ptosis. +lateral nystagmus Neck:no JVD, left anterior neck large hard nodule non tender Oral: ETT, OGT Cardiovascular: tachycardic Respiratory: distant BS GI: Soft, non-tender; bowel sounds normal. No peritoneal signs Musculoskeletal: No pedal edema, no cyanosis. Skin: No rash or abscess. Hem/Lymphatic: No palpable cervical or supraclavicular nodes. No lymphangitis Psych: somnolent Neurological: somnolent - Constitutional Vitals: Vital Signs Temp Pulse Resp BP Pulse Ox 98.1 F 93 H 22 148/91 100 10/07/18 12:00 10/07/18 12:00 10/07/18 12:00 10/07/18 12:00 10/07/18 12:00 Temperature -Last 24 Hours Temperature 98.1 F Temperature 98.2 F Temperature 97.5 F Temperature 98.9 F Temperature 98.8 F - Labs CBC & Chem 7: 10/07/18 04:20 10/07/18 04:20 Labs: Abnormal lab results 10/07/18 10/07/18 Range/Units 04:20 04:20 WBC 1.1 L* (4.5-11.0) K/mm3 RBC 3.07 L (3.65-5.03) M/mm3 Hgb 9.1 L (11.8-15.2) gm/dl Hct 27.3 L (35.5-45.6) % RDW 20.3 H (13.2-15.2) % Seg Neutrophils # Man 0.7 L (1.8-7.7) K/mm3 Lymphocytes # (Manual) 0.3 L (1.2-5.4) K/mm3 Creatinine 0.7 L (0.8-1.5) mg/dL Calcium 7.9 L (8.4-10.2) mg/dL Total Protein 5.5 L (6.3-8.2) g/dL Albumin 2.2 L (3.9-5) g/dL
--- NOTE | 2018-10-07 15:39 | Progress Note ---
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 - continue Robinul & scopolamine for secretion control (increased Robinul to q6h) - continue to hold all other sedating medications - will continue daytime SBT's for now while following mental status - continue anti-infective's per ID recs (ART has been started appropriately) - continue low dose reglan re: reported increased residuals - continue supplemental oxygen to keep sats > 90% - continue bronchodilators with pulmonary Continue empiric and targeted anti- infective's per ID recs antibiotics per ID - continue set rate at 12/min - continue daily SBT's - daily SAT's once sedation resumed - continue IV heparin for NSTEMI - continue Robinul 2 mg q8h for secretions - IV amiodarone stopped - cardiology evaluation ongoing - diarrhea improved - continue fluconazole for candidiasis - watch for drug-drug interactions - continue enteral nutrition as tolerated - when resumed target sedation for RASS 0 to -1 - PT/OT/ROM exercises as tolerated - mobility protocol for pressure ulcer prophylaxis - continue GI & VTE prophylaxis - continue other care per attending / other consultants ...... re-evaluate in am & prn The high probability of a clinically significant, sudden or life threatening deterioration of the [cardiac, respiratory and neurologic] system(s) required my full and direct attention, intervention and personal management. The aggregate critical care time was [32] minutes. This time is in addition to time spent performing reported procedures but includes the following: [x] Data Review and interpretation [x] Patient assessment and monitoring of vital signs [x] Documentation [x] Medication orders and management Subjective Date of service: 10/07/18 Principal diagnosis: Severe sepsis; Ac hypoxemic Resp failure; [place]. Pneumonia; Ac encephalopathy Interval history: Patient is seen today for: Severe sepsis (present on admission with fever, tachycardia, hypotension and elevated lactate); Acute hypoxemic Respiratory failure; Bilateral pneumonia; Acute encephalopathy (Toxic / Metabolic); Atrial Fibrillation with RVR Seen and examined at bedside; 24hour events reviewed; nursing and respiratory care staff consulted; no adverse overnight events reported to me; tolerating less time on PSV; AMS is persistent; no seizure activity; tolerating tube feeds; placed back on full AC support Objective Vital Signs - 12hr 10/07/18 10/07/18 10/07/18 03:53 04:00 04:30 Temperature Pulse Rate 87 81 76 Pulse Rate [ 95 H From Monitor] Pulse Rate [ 95 H Left Dorsalis Pedis] Pulse Rate [ Throughout] Respiratory 14 12 Rate Respiratory Rate [ Generalized] Respiratory Rate [ Throughout] Blood Pressure 126/81 123/81 123/81 O2 Sat by Pulse 100 100 Oximetry 10/07/18 10/07/18 10/07/18 05:00 05:30 06:00 Temperature Pulse Rate 77 81 86 Pulse Rate [ From Monitor] Pulse Rate [ Left Dorsalis Pedis] Pulse Rate [ Throughout] Respiratory 12 16 27 H Rate Respiratory Rate [ Generalized] Respiratory Rate [ Throughout] Blood Pressure 121/76 121/76 133/78 O2 Sat by Pulse 100 100 100 Oximetry 10/07/18 10/07/18 10/07/18 06:30 06:35 07:00 Temperature Pulse Rate 84 87 Pulse Rate [ From Monitor] Pulse Rate [ Left Dorsalis Pedis] Pulse Rate [ Throughout] Respiratory 24 25 H 22 Rate Respiratory Rate [ Generalized] Respiratory Rate [ Throughout] Blood Pressure 121/76 116/76 O2 Sat by Pulse 100 100 100 Oximetry 10/07/18 10/07/18 10/07/18 07:30 08:00 08:30 Temperature 98.2 F Pulse Rate 88 90 90 Pulse Rate [ From Monitor] Pulse Rate [ Left Dorsalis Pedis] Pulse Rate [ Throughout] Respiratory 31 H 25 H 25 H Rate Respiratory Rate [ Generalized] Respiratory Rate [ Throughout] Blood Pressure 116/76 116/76 128/85 O2 Sat by Pulse 100 92 Oximetry 10/07/18 10/07/18 10/07/18 08:42 08:45 08:48 Temperature Pulse Rate 90 90 Pulse Rate [ From Monitor] Pulse Rate [ Left Dorsalis Pedis] Pulse Rate [ 90 Throughout] Respiratory 26 H Rate Respiratory Rate [ Generalized] Respiratory 28 H Rate [ Throughout] Blood Pressure 128/85 128/85 O2 Sat by Pulse 95 97 Oximetry 02/22/19 02/22/19 02/22/19 08:57 09:00 09:31 Temperature Pulse Rate 94 H 94 H Pulse Rate [ From Monitor] Pulse Rate [ Left Dorsalis Pedis] Pulse Rate [ 90 Throughout] Respiratory 21 31 H Rate Respiratory Rate [ Generalized] Respiratory 29 H Rate [ Throughout] Blood Pressure 137/84 137/84 O2 Sat by Pulse 100 100 Oximetry 10/07/18 10/07/18 10/07/18 10:00 10:31 11:00 Temperature Pulse Rate 95 H 95 H 87 Pulse Rate [ From Monitor] Pulse Rate [ Left Dorsalis Pedis] Pulse Rate [ Throughout] Respiratory 34 H 20 20 Rate Respiratory 22 Rate [ Generalized] Respiratory Rate [ Throughout] Blood Pressure 132/93 132/93 136/87 O2 Sat by Pulse 99 100 100 Oximetry 10/07/18 10/07/18 10/07/18 11:31 11:36 11:39 Temperature Pulse Rate 90 90 92 H Pulse Rate [ From Monitor] Pulse Rate [ Left Dorsalis Pedis] Pulse Rate [ Throughout] Respiratory 25 H 39 H Rate Respiratory Rate [ Generalized] Respiratory Rate [ Throughout] Blood Pressure 136/87 136/87 136/87 O2 Sat by Pulse 100 100 100 Oximetry 10/07/18 10/07/18 10/07/18 12:00 12:31 13:00 Temperature 98.1 F Pulse Rate 93 H 91 H 96 H Pulse Rate [ From Monitor] Pulse Rate [ Left Dorsalis Pedis] Pulse Rate [ Throughout] Respiratory 22 21 26 H Rate Respiratory Rate [ Generalized] Respiratory Rate [ Throughout] Blood Pressure 148/91 148/91 135/82 O2 Sat by Pulse 100 100 100 Oximetry 10/07/18 10/07/18 10/07/18 13:31 15:36 15:38 Temperature Pulse Rate 98 H 103 H Pulse Rate [ From Monitor] Pulse Rate [ Left Dorsalis Pedis] Pulse Rate [ 102 H Throughout] Respiratory 19 Rate Respiratory Rate [ Generalized] Respiratory 25 H Rate [ Throughout] Blood Pressure 148/91 146/85 O2 Sat by Pulse 100 100 Oximetry Constitutional: lethargic, agitated, appears uncomfortable, other (orally intubated ETT at 23cm) Eyes: non-icteric ENT: oropharynx moist, other (ETT 25 cm NIKA) Neck: supple, no lymphadenopathy, other (no thyromegaly) Effort: normal Ascultation: Bilateral: rhonchi (scant) Percussion: Bilateral: not dull Cardiovascular: regular rate and rhythm, other (S1,S2, no murmurs, gallps or rubs) Gastrointestinal: normoactive bowel sounds, soft, non-tender, non-distended Integumentary: rash Extremities: no cyanosis, pulses normal, no ischemia or petechiae, edema Neurologic: non-focal exam (grossly), pupils equal and round, motor strength normal and (weak ) Psychiatric: other (unable to assess) CBC and BMP: 10/07/18 04:20 10/07/18 04:20 ABG, PT/INR, D-dimer: ABG POC ABG pH 7.387 (7.35-7.45) 10/01/18 13:06 POC ABG pCO2 44.1 (35-45) 10/01/18 13:06 POC ABG pO2 83 (80-105) 10/01/18 13:06 POC ABG HCO3 26.5 10/01/18 13:06 POC ABG Total CO2 28 10/01/18 13:06 POC ABG O2 Sat 96 10/01/18 13:06 PT/INR, D-dimer PT 19.9 Sec. (12.2-14.9) H 09/21/18 15:00 INR 1.65 (0.87-1.13) H 09/21/18 15:00 Abnormal lab findings: Abnormal Labs 09/11/18 09/11/18 09/11/18 18:00 18:00 18:00 WBC 1.9 L* RBC Hgb Hct RDW Plt Count 130 L Seg Neuts % (Manual) Lymphocytes % (Manual) Monocytes % (Manual) 16.0 H Eosinophils % (Manual) Basophils % (Manual) Nucleated RBC % Seg Neutrophils # Man 0.9 L Abs Lymphs (Manual) Lymphocytes # (Manual) 0.5 L PT INR APTT Heparin Anti-Xa Level POC ABG pH POC ABG pCO2 POC ABG pO2 Sodium 131 L Potassium Chloride Carbon Dioxide 17 L BUN 21 H Creatinine Glucose 126 H POC Glucose Lactic Acid 2.60 H* Calcium 8.1 L Phosphorus Magnesium Iron TIBC Ferritin AST 123 H ALT 115 H Total Creatine Kinase Total Protein Albumin 3.0 L Vitamin B12 Folate TSH Free T4 CSF VDRL Lymph Enumerat CD4/CD8 Absolute CD3 Count % CD4 Cells Absolute CD4 Count % CD8 Cells Absolute CD19 Count T.pallidum Ab (FTA-ABS) HIV-1 RNA PCR copies/ml HIV-1 RNA (PCR) log Miscellaneous Test 09/11/18 09/13/18 09/13/18 19:01 04:28 07:31 WBC 2.0 L RBC Hgb Hct RDW Plt Count 116 L Seg Neuts % (Manual) Lymphocytes % (Manual) Monocytes % (Manual) 8.0 H Eosinophils % (Manual) Basophils % (Manual) Nucleated RBC % Seg Neutrophils # Man 1.0 L Abs Lymphs (Manual) Lymphocytes # (Manual) 0.5 L PT INR APTT Heparin Anti-Xa Level POC ABG pH POC ABG pCO2 POC ABG pO2 Sodium Potassium Chloride 110.4 H Carbon Dioxide 19 L BUN Creatinine Glucose POC Glucose Lactic Acid 3.70 H* Calcium 7.9 L Phosphorus Magnesium Iron TIBC Ferritin AST ALT Total Creatine Kinase Total Protein Albumin Vitamin B12 Folate TSH Free T4 CSF VDRL Lymph Enumerat CD4/CD8 Absolute CD3 Count % CD4 Cells Absolute CD4 Count % CD8 Cells Absolute CD19 Count T.pallidum Ab (FTA-ABS) HIV-1 RNA PCR copies/ml HIV-1 RNA (PCR) log Miscellaneous Test 09/13/18 09/13/18 09/13/18 07:31 12:29 12:29 WBC RBC Hgb Hct RDW Plt Count Seg Neuts % (Manual) Lymphocytes % (Manual) Monocytes % (Manual) Eosinophils % (Manual) Basophils % (Manual) Nucleated RBC % Seg Neutrophils # Man Abs Lymphs (Manual) 309 L Lymphocytes # (Manual) PT INR APTT Heparin Anti-Xa Level POC ABG pH POC ABG pCO2 POC ABG pO2 Sodium Potassium Chloride Carbon Dioxide BUN Creatinine Glucose POC Glucose Lactic Acid Calcium Phosphorus Magnesium Iron TIBC Ferritin AST 70 H ALT 68 H Total Creatine Kinase Total Protein Albumin 2.5 L Vitamin B12 Folate TSH Free T4 CSF VDRL Lymph Enumerat CD4/CD8 0.01 L Absolute CD3 Count 220 L % CD4 Cells 1 L Absolute CD4 Count 4 L % CD8 Cells 70 H Absolute CD19 Count 54 L T.pallidum Ab (FTA-ABS) HIV-1 RNA PCR copies/ml 31819 H HIV-1 RNA (PCR) log 4.71 H Miscellaneous Test 09/13/18 09/14/18 09/14/18 12:29 07:17 16:34 WBC RBC Hgb Hct RDW Plt Count Seg Neuts % (Manual) Lymphocytes % (Manual) Monocytes % (Manual) Eosinophils % (Manual) Basophils % (Manual) Nucleated RBC % Seg Neutrophils # Man Abs Lymphs (Manual) Lymphocytes # (Manual) PT INR APTT Heparin Anti-Xa Level POC ABG pH POC ABG pCO2 POC ABG pO2 Sodium Potassium 3.4 L Chloride Carbon Dioxide 18 L BUN Creatinine Glucose 104 H POC Glucose Lactic Acid Calcium 7.6 L Phosphorus Magnesium Iron TIBC Ferritin AST 49 H ALT Total Creatine Kinase Total Protein Albumin 2.5 L Vitamin B12 Folate TSH Free T4 CSF VDRL Lymph Enumerat CD4/CD8 Absolute CD3 Count % CD4 Cells Absolute CD4 Count % CD8 Cells Absolute CD19 Count T.pallidum Ab (FTA-ABS) Reactive H HIV-1 RNA PCR copies/ml HIV-1 RNA (PCR) log Miscellaneous Test Flexitest 1 H 09/15/18 09/15/18 09/15/18 05:05 05:05 Unknown WBC 1.6 L* RBC Hgb 10.4 L Hct 31.1 L D RDW Plt Count 113 L Seg Neuts % (Manual) Lymphocytes % (Manual) Monocytes % (Manual) Eosinophils % (Manual) Basophils % (Manual) Nucleated RBC % Seg Neutrophils # Man Abs Lymphs (Manual) Lymphocytes # (Manual) PT INR APTT Heparin Anti-Xa Level POC ABG pH POC ABG pCO2 POC ABG pO2 Sodium Potassium Chloride 107.9 H Carbon Dioxide 18 L BUN 6 L Creatinine Glucose POC Glucose Lactic Acid Calcium 7.4 L Phosphorus Magnesium Iron TIBC Ferritin AST ALT Total Creatine Kinase Total Protein Albumin Vitamin B12 Folate TSH Free T4 CSF VDRL Reactive 1:8 H Lymph Enumerat CD4/CD8 Absolute CD3 Count % CD4 Cells Absolute CD4 Count % CD8 Cells Absolute CD19 Count T.pallidum Ab (FTA-ABS) HIV-1 RNA PCR copies/ml HIV-1 RNA (PCR) log Miscellaneous Test 09/16/18 09/16/18 09/16/18 06:55 11:41 11:41 WBC 2.8 L RBC Hgb 10.9 L Hct 33.5 L RDW Plt Count 135 L Seg Neuts % (Manual) Lymphocytes % (Manual) Monocytes % (Manual) Eosinophils % (Manual) Basophils % (Manual) Nucleated RBC % Seg Neutrophils # Man Abs Lymphs (Manual) Lymphocytes # (Manual) PT INR APTT Heparin Anti-Xa Level POC ABG pH POC ABG pCO2 POC ABG pO2 Sodium Potassium Chloride Carbon Dioxide BUN Creatinine Glucose POC Glucose Lactic Acid Calcium Phosphorus Magnesium Iron TIBC Ferritin AST ALT Total Creatine Kinase Total Protein Albumin Vitamin B12 Folate TSH 4.210 H Free T4 0.72 L CSF VDRL Lymph Enumerat CD4/CD8 Absolute CD3 Count % CD4 Cells Absolute CD4 Count % CD8 Cells Absolute CD19 Count T.pallidum Ab (FTA-ABS) HIV-1 RNA PCR copies/ml HIV-1 RNA (PCR) log Miscellaneous Test 09/16/18 09/16/18 09/17/18 11:41 15:43 05:13 WBC 2.0 L RBC Hgb 10.9 L Hct 32.7 L RDW Plt Count Seg Neuts % (Manual) Lymphocytes % (Manual) Monocytes % (Manual) Eosinophils % (Manual) Basophils % (Manual) Nucleated RBC % Seg Neutrophils # Man Abs Lymphs (Manual) Lymphocytes # (Manual) PT INR APTT Heparin Anti-Xa Level POC ABG pH POC ABG pCO2 29.3 L POC ABG pO2 70 L Sodium Potassium Chloride Carbon Dioxide BUN Creatinine Glucose POC Glucose Lactic Acid Calcium Phosphorus Magnesium Iron TIBC Ferritin AST ALT Total Creatine Kinase Total Protein Albumin Vitamin B12 934.5 H Folate TSH Free T4 CSF VDRL Lymph Enumerat CD4/CD8 Absolute CD3 Count % CD4 Cells Absolute CD4 Count % CD8 Cells Absolute CD19 Count T.pallidum Ab (FTA-ABS) HIV-1 RNA PCR copies/ml HIV-1 RNA (PCR) log Miscellaneous Test 09/17/18 09/17/18 09/18/18 05:13 21:57 12:46 WBC RBC Hgb Hct RDW Plt Count Seg Neuts % (Manual) Lymphocytes % (Manual) Monocytes % (Manual) Eosinophils % (Manual) Basophils % (Manual) Nucleated RBC % Seg Neutrophils # Man Abs Lymphs (Manual) Lymphocytes # (Manual) PT INR APTT Heparin Anti-Xa Level POC ABG pH POC ABG pCO2 POC ABG pO2 Sodium Potassium Chloride 107.2 H Carbon Dioxide 21 L BUN 3 L Creatinine 0.7 L Glucose POC Glucose 108 H Lactic Acid Calcium 7.9 L Phosphorus Magnesium Iron TIBC Ferritin AST ALT Total Creatine Kinase Total Protein 6.1 L Albumin 2.6 L Vitamin B12 Folate TSH Free T4 0.75 L CSF VDRL Lymph Enumerat CD4/CD8 Absolute CD3 Count % CD4 Cells Absolute CD4 Count % CD8 Cells Absolute CD19 Count T.pallidum Ab (FTA-ABS) HIV-1 RNA PCR copies/ml HIV-1 RNA (PCR) log Miscellaneous Test 09/18/18 09/19/18 09/19/18 12:46 04:57 04:57 WBC 2.1 L RBC Hgb 11.4 L Hct 34.2 L RDW Plt Count Seg Neuts % (Manual) Lymphocytes % (Manual) Monocytes % (Manual) Eosinophils % (Manual) Basophils % (Manual) Nucleated RBC % Seg Neutrophils # Man Abs Lymphs (Manual) Lymphocytes # (Manual) PT INR APTT Heparin Anti-Xa Level POC ABG pH POC ABG pCO2 POC ABG pO2 Sodium Potassium Chloride Carbon Dioxide 19 L BUN 6 L Creatinine Glucose POC Glucose Lactic Acid Calcium 7.9 L Phosphorus Magnesium Iron TIBC Ferritin AST ALT Total Creatine Kinase Total Protein Albumin Vitamin B12 Folate TSH 5.190 H Free T4 CSF VDRL Lymph Enumerat CD4/CD8 Absolute CD3 Count % CD4 Cells Absolute CD4 Count % CD8 Cells Absolute CD19 Count T.pallidum Ab (FTA-ABS) HIV-1 RNA PCR copies/ml HIV-1 RNA (PCR) log Miscellaneous Test 09/19/18 09/19/18 09/20/18 15:00 15:00 05:33 WBC RBC Hgb Hct RDW Plt Count Seg Neuts % (Manual) Lymphocytes % (Manual) Monocytes % (Manual) Eosinophils % (Manual) Basophils % (Manual) Nucleated RBC % Seg Neutrophils # Man Abs Lymphs (Manual) Lymphocytes # (Manual) PT INR APTT Heparin Anti-Xa Level POC ABG pH POC ABG pCO2 POC ABG pO2 Sodium 136 L Potassium Chloride Carbon Dioxide 19 L BUN 7 L Creatinine Glucose POC Glucose Lactic Acid Calcium Phosphorus Magnesium Iron TIBC Ferritin AST ALT Total Creatine Kinase Total Protein Albumin Vitamin B12 Folate TSH Free T4 CSF VDRL Reactive 1:4 H Lymph Enumerat CD4/CD8 Absolute CD3 Count % CD4 Cells Absolute CD4 Count % CD8 Cells Absolute CD19 Count T.pallidum Ab (FTA-ABS) HIV-1 RNA PCR copies/ml HIV-1 RNA (PCR) log Miscellaneous Test Flexitest 1 H 09/20/18 09/21/18 09/21/18 06:52 01:06 03:49 WBC 2.5 L RBC Hgb Hct RDW Plt Count Seg Neuts % (Manual) Lymphocytes % (Manual) Monocytes % (Manual) Eosinophils % (Manual) Basophils % (Manual) Nucleated RBC % Seg Neutrophils # Man Abs Lymphs (Manual) Lymphocytes # (Manual) PT INR APTT Heparin Anti-Xa Level POC ABG pH 7.159 L POC ABG pCO2 32.9 L 70.0 H POC ABG pO2 62 L 254 H Sodium Potassium Chloride Carbon Dioxide BUN Creatinine Glucose POC Glucose Lactic Acid Calcium Phosphorus Magnesium Iron TIBC Ferritin AST ALT Total Creatine Kinase Total Protein Albumin Vitamin B12 Folate TSH Free T4 CSF VDRL Lymph Enumerat CD4/CD8 Absolute CD3 Count % CD4 Cells Absolute CD4 Count % CD8 Cells Absolute CD19 Count T.pallidum Ab (FTA-ABS) HIV-1 RNA PCR copies/ml HIV-1 RNA (PCR) log Miscellaneous Test 09/21/18 09/21/18 09/21/18 04:15 04:15 04:25 WBC 3.1 L RBC Hgb 11.6 L Hct RDW Plt Count Seg Neuts % (Manual) Lymphocytes % (Manual) Monocytes % (Manual) 12.0 H Eosinophils % (Manual) Basophils % (Manual) Nucleated RBC % Seg Neutrophils # Man 1.6 L Abs Lymphs (Manual) Lymphocytes # (Manual) 0.5 L PT INR APTT Heparin Anti-Xa Level POC ABG pH POC ABG pCO2 POC ABG pO2 Sodium Potassium 6.1 H* D Chloride Carbon Dioxide 19 L BUN Creatinine Glucose 108 H POC Glucose Lactic Acid Calcium Phosphorus Magnesium Iron TIBC Ferritin AST ALT Total Creatine Kinase 685 H Total Protein Albumin Vitamin B12 Folate TSH Free T4 CSF VDRL Lymph Enumerat CD4/CD8 Absolute CD3 Count % CD4 Cells Absolute CD4 Count % CD8 Cells Absolute CD19 Count T.pallidum Ab (FTA-ABS) HIV-1 RNA PCR copies/ml HIV-1 RNA (PCR) log Miscellaneous Test 09/21/18 09/21/18 09/21/18 09:59 10:07 11:00 WBC RBC Hgb 11.7 L Hct RDW Plt Count Seg Neuts % (Manual) Lymphocytes % (Manual) Monocytes % (Manual) Eosinophils % (Manual) Basophils % (Manual) Nucleated RBC % Seg Neutrophils # Man Abs Lymphs (Manual) Lymphocytes # (Manual) PT INR APTT Heparin Anti-Xa Level POC ABG pH 7.301 L POC ABG pCO2 POC ABG pO2 109 H Sodium Potassium 6.5 H* Chloride Carbon Dioxide 18 L BUN Creatinine 2.1 H D Glucose POC Glucose Lactic Acid Calcium 8.1 L Phosphorus Magnesium Iron TIBC Ferritin AST 94 H ALT Total Creatine Kinase Total Protein Albumin 2.8 L Vitamin B12 Folate TSH Free T4 CSF VDRL Lymph Enumerat CD4/CD8 Absolute CD3 Count % CD4 Cells Absolute CD4 Count % CD8 Cells Absolute CD19 Count T.pallidum Ab (FTA-ABS) HIV-1 RNA PCR copies/ml HIV-1 RNA (PCR) log Miscellaneous Test 09/21/18 09/21/18 09/21/18 15:00 21:54 21:54 WBC RBC Hgb Hct RDW Plt Count Seg Neuts % (Manual) Lymphocytes % (Manual) Monocytes % (Manual) Eosinophils % (Manual) Basophils % (Manual) Nucleated RBC % Seg Neutrophils # Man Abs Lymphs (Manual) Lymphocytes # (Manual) PT 19.9 H INR 1.65 H APTT 40.9 H Heparin Anti-Xa Level 0.98 H POC ABG pH POC ABG pCO2 POC ABG pO2 Sodium Potassium 5.2 H Chloride Carbon Dioxide BUN Creatinine Glucose POC Glucose Lactic Acid Calcium Phosphorus Magnesium Iron TIBC Ferritin AST ALT Total Creatine Kinase Total Protein Albumin Vitamin B12 Folate TSH Free T4 CSF VDRL Lymph Enumerat CD4/CD8 Absolute CD3 Count % CD4 Cells Absolute CD4 Count % CD8 Cells Absolute CD19 Count T.pallidum Ab (FTA-ABS) HIV-1 RNA PCR copies/ml HIV-1 RNA (PCR) log Miscellaneous Test 09/21/18 09/22/18 09/22/18 22:57 03:01 05:27 WBC RBC Hgb Hct RDW Plt Count Seg Neuts % (Manual) Lymphocytes % (Manual) Monocytes % (Manual) Eosinophils % (Manual) Basophils % (Manual) Nucleated RBC % Seg Neutrophils # Man Abs Lymphs (Manual) Lymphocytes # (Manual) PT INR APTT Heparin Anti-Xa Level POC ABG pH POC ABG pCO2 32.7 L POC ABG pO2 Sodium Potassium Chloride Carbon Dioxide BUN Creatinine Glucose POC Glucose 124 H 128 H Lactic Acid Calcium Phosphorus Magnesium Iron TIBC Ferritin AST ALT Total Creatine Kinase Total Protein Albumin Vitamin B12 Folate TSH Free T4 CSF VDRL Lymph Enumerat CD4/CD8 Absolute CD3 Count % CD4 Cells Absolute CD4 Count % CD8 Cells Absolute CD19 Count T.pallidum Ab (FTA-ABS) HIV-1 RNA PCR copies/ml HIV-1 RNA (PCR) log Miscellaneous Test 09/22/18 09/22/18 09/22/18 07:00 07:00 11:32 WBC 1.8 L* RBC 3.59 L Hgb 10.1 L Hct 30.8 L RDW Plt Count 126 L Seg Neuts % (Manual) Lymphocytes % (Manual) Monocytes % (Manual) Eosinophils % (Manual) Basophils % (Manual) Nucleated RBC % Seg Neutrophils # Man Abs Lymphs (Manual) Lymphocytes # (Manual) PT INR APTT Heparin Anti-Xa Level POC ABG pH POC ABG pCO2 POC ABG pO2 Sodium Potassium Chloride Carbon Dioxide BUN 27 H Creatinine 2.0 H Glucose 128 H POC Glucose 123 H Lactic Acid Calcium 6.9 L Phosphorus Magnesium Iron TIBC Ferritin AST ALT Total Creatine Kinase Total Protein Albumin Vitamin B12 Folate TSH Free T4 CSF VDRL Lymph Enumerat CD4/CD8 Absolute CD3 Count % CD4 Cells Absolute CD4 Count % CD8 Cells Absolute CD19 Count T.pallidum Ab (FTA-ABS) HIV-1 RNA PCR copies/ml HIV-1 RNA (PCR) log Miscellaneous Test 09/22/18 09/22/18 09/22/18 15:52 18:18 23:52 WBC RBC Hgb Hct RDW Plt Count Seg Neuts % (Manual) Lymphocytes % (Manual) Monocytes % (Manual) Eosinophils % (Manual) Basophils % (Manual) Nucleated RBC % Seg Neutrophils # Man Abs Lymphs (Manual) Lymphocytes # (Manual) PT INR APTT Heparin Anti-Xa Level POC ABG pH POC ABG pCO2 48.7 H POC ABG pO2 Sodium Potassium Chloride Carbon Dioxide BUN Creatinine Glucose POC Glucose 110 H 124 H Lactic Acid Calcium Phosphorus Magnesium Iron TIBC Ferritin AST ALT Total Creatine Kinase Total Protein Albumin Vitamin B12 Folate TSH Free T4 CSF VDRL Lymph Enumerat CD4/CD8 Absolute CD3 Count % CD4 Cells Absolute CD4 Count % CD8 Cells Absolute CD19 Count T.pallidum Ab (FTA-ABS) HIV-1 RNA PCR copies/ml HIV-1 RNA (PCR) log Miscellaneous Test 09/23/18 09/23/18 09/23/18 04:10 05:55 05:55 WBC RBC Hgb 10.0 L Hct 30.3 L RDW Plt Count 117 L Seg Neuts % (Manual) Lymphocytes % (Manual) Monocytes % (Manual) Eosinophils % (Manual) Basophils % (Manual) Nucleated RBC % Seg Neutrophils # Man Abs Lymphs (Manual) Lymphocytes # (Manual) PT INR APTT Heparin Anti-Xa Level 0.26 L POC ABG pH POC ABG pCO2 POC ABG pO2 144 H Sodium Potassium Chloride Carbon Dioxide BUN Creatinine Glucose POC Glucose Lactic Acid Calcium Phosphorus Magnesium Iron TIBC Ferritin AST ALT Total Creatine Kinase Total Protein Albumin Vitamin B12 Folate TSH Free T4 CSF VDRL Lymph Enumerat CD4/CD8 Absolute CD3 Count % CD4 Cells Absolute CD4 Count % CD8 Cells Absolute CD19 Count T.pallidum Ab (FTA-ABS) HIV-1 RNA PCR copies/ml HIV-1 RNA (PCR) log Miscellaneous Test 09/23/18 09/23/18 09/23/18 08:10 08:10 23:57 WBC 1.3 L* RBC 3.53 L Hgb 9.9 L Hct 30.0 L RDW Plt Count 119 L Seg Neuts % (Manual) Lymphocytes % (Manual) Monocytes % (Manual) Eosinophils % (Manual) Basophils % (Manual) Nucleated RBC % Seg Neutrophils # Man Abs Lymphs (Manual) Lymphocytes # (Manual) PT INR APTT Heparin Anti-Xa Level POC ABG pH POC ABG pCO2 POC ABG pO2 Sodium Potassium Chloride Carbon Dioxide BUN Creatinine Glucose 122 H POC Glucose 115 H Lactic Acid Calcium 6.9 L Phosphorus Magnesium Iron TIBC Ferritin AST ALT Total Creatine Kinase Total Protein Albumin Vitamin B12 Folate TSH Free T4 CSF VDRL Lymph Enumerat CD4/CD8 Absolute CD3 Count % CD4 Cells Absolute CD4 Count % CD8 Cells Absolute CD19 Count T.pallidum Ab (FTA-ABS) HIV-1 RNA PCR copies/ml HIV-1 RNA (PCR) log Miscellaneous Test 09/24/18 09/24/18 09/24/18 12:04 14:42 18:10 WBC RBC Hgb Hct RDW Plt Count Seg Neuts % (Manual) Lymphocytes % (Manual) Monocytes % (Manual) Eosinophils % (Manual) Basophils % (Manual) Nucleated RBC % Seg Neutrophils # Man Abs Lymphs (Manual) Lymphocytes # (Manual) PT INR APTT Heparin Anti-Xa Level 0.76 H POC ABG pH POC ABG pCO2 POC ABG pO2 Sodium Potassium Chloride Carbon Dioxide BUN Creatinine Glucose POC Glucose 111 H 138 H Lactic Acid Calcium Phosphorus Magnesium Iron TIBC Ferritin AST ALT Total Creatine Kinase Total Protein Albumin Vitamin B12 Folate TSH Free T4 CSF VDRL Lymph Enumerat CD4/CD8 Absolute CD3 Count % CD4 Cells Absolute CD4 Count % CD8 Cells Absolute CD19 Count T.pallidum Ab (FTA-ABS) HIV-1 RNA PCR copies/ml HIV-1 RNA (PCR) log Miscellaneous Test 09/25/18 09/25/18 09/25/18 03:45 04:24 14:20 WBC RBC Hgb 9.7 L Hct 29.4 L RDW Plt Count 104 L Seg Neuts % (Manual) Lymphocytes % (Manual) Monocytes % (Manual) Eosinophils % (Manual) Basophils % (Manual) Nucleated RBC % Seg Neutrophils # Man Abs Lymphs (Manual) Lymphocytes # (Manual) PT INR APTT Heparin Anti-Xa Level POC ABG pH 7.460 H POC ABG pCO2 32.9 L POC ABG pO2 Sodium Potassium 3.5 L Chloride 110.3 H Carbon Dioxide BUN Creatinine Glucose 105 H POC Glucose Lactic Acid Calcium 6.7 L Phosphorus Magnesium Iron TIBC Ferritin AST 633 H ALT 481 H Total Creatine Kinase Total Protein 4.8 L D Albumin 1.9 L Vitamin B12 Folate TSH Free T4 CSF VDRL Lymph Enumerat CD4/CD8 Absolute CD3 Count % CD4 Cells Absolute CD4 Count % CD8 Cells Absolute CD19 Count T.pallidum Ab (FTA-ABS) HIV-1 RNA PCR copies/ml HIV-1 RNA (PCR) log Miscellaneous Test 09/26/18 09/26/18 09/26/18 06:15 06:15 10:43 WBC 1.2 L* RBC 3.32 L Hgb 9.2 L Hct 28.6 L RDW Plt Count 97 L Seg Neuts % (Manual) 24.0 L Lymphocytes % (Manual) 43.0 H Monocytes % (Manual) 19.0 H Eosinophils % (Manual) 8.0 H Basophils % (Manual) 2.0 H Nucleated RBC % 3.0 H Seg Neutrophils # Man 0.0 L Abs Lymphs (Manual) Lymphocytes # (Manual) 0.0 L PT INR APTT Heparin Anti-Xa Level POC ABG pH 7.459 H POC ABG pCO2 POC ABG pO2 141 H Sodium Potassium Chloride 112.8 H Carbon Dioxide BUN Creatinine Glucose 110 H POC Glucose Lactic Acid Calcium 7.0 L Phosphorus 0.90 L* Magnesium Iron TIBC Ferritin AST 362 H ALT 360 H Total Creatine Kinase Total Protein 4.9 L Albumin 1.5 L Vitamin B12 Folate TSH Free T4 CSF VDRL Lymph Enumerat CD4/CD8 Absolute CD3 Count % CD4 Cells Absolute CD4 Count % CD8 Cells Absolute CD19 Count T.pallidum Ab (FTA-ABS) HIV-1 RNA PCR copies/ml HIV-1 RNA (PCR) log Miscellaneous Test 09/26/18 09/27/18 09/28/18 13:56 04:11 07:49 WBC RBC Hgb 9.1 L Hct 29.1 L RDW Plt Count 96 L Seg Neuts % (Manual) Lymphocytes % (Manual) Monocytes % (Manual) Eosinophils % (Manual) Basophils % (Manual) Nucleated RBC % Seg Neutrophils # Man Abs Lymphs (Manual) Lymphocytes # (Manual) PT INR APTT Heparin Anti-Xa Level POC ABG pH POC ABG pCO2 POC ABG pO2 Sodium 146 H Potassium Chloride 111.6 H Carbon Dioxide BUN Creatinine Glucose POC Glucose 135 H Lactic Acid Calcium 7.4 L Phosphorus Magnesium Iron TIBC Ferritin AST ALT Total Creatine Kinase Total Protein Albumin Vitamin B12 Folate TSH Free T4 CSF VDRL Lymph Enumerat CD4/CD8 Absolute CD3 Count % CD4 Cells Absolute CD4 Count % CD8 Cells Absolute CD19 Count T.pallidum Ab (FTA-ABS) HIV-1 RNA PCR copies/ml HIV-1 RNA (PCR) log Miscellaneous Test 09/28/18 09/29/18 09/29/18 10:43 05:00 05:00 WBC 1.2 L* RBC 3.13 L Hgb 8.6 L Hct 27.3 L RDW Plt Count 137 L Seg Neuts % (Manual) Lymphocytes % (Manual) Monocytes % (Manual) 16.0 H Eosinophils % (Manual) Basophils % (Manual) Nucleated RBC % 4.0 H Seg Neutrophils # Man 0.5 L Abs Lymphs (Manual) Lymphocytes # (Manual) 0.3 L PT INR APTT Heparin Anti-Xa Level POC ABG pH 7.300 L POC ABG pCO2 53.9 H POC ABG pO2 Sodium 147 H Potassium 3.4 L Chloride 114.5 H Carbon Dioxide BUN Creatinine Glucose POC Glucose Lactic Acid Calcium 7.7 L Phosphorus Magnesium Iron TIBC Ferritin AST 69 H ALT 110 H Total Creatine Kinase Total Protein 5.2 L Albumin 1.9 L Vitamin B12 Folate TSH Free T4 CSF VDRL Lymph Enumerat CD4/CD8 Absolute CD3 Count % CD4 Cells Absolute CD4 Count % CD8 Cells Absolute CD19 Count T.pallidum Ab (FTA-ABS) HIV-1 RNA PCR copies/ml HIV-1 RNA (PCR) log Miscellaneous Test 09/29/18 09/29/18 09/30/18 06:07 13:22 05:19 WBC 0.9 L* RBC 3.03 L Hgb 8.6 L Hct 25.9 L RDW Plt Count Seg Neuts % (Manual) Lymphocytes % (Manual) Monocytes % (Manual) Eosinophils % (Manual) Basophils % (Manual) Nucleated RBC % Seg Neutrophils # Man Abs Lymphs (Manual) Lymphocytes # (Manual) PT INR APTT Heparin Anti-Xa Level POC ABG pH POC ABG pCO2 46.9 H POC ABG pO2 Sodium Potassium Chloride Carbon Dioxide BUN Creatinine Glucose POC Glucose 109 H Lactic Acid Calcium Phosphorus Magnesium Iron TIBC Ferritin AST ALT Total Creatine Kinase Total Protein Albumin Vitamin B12 Folate TSH Free T4 CSF VDRL Lymph Enumerat CD4/CD8 Absolute CD3 Count % CD4 Cells Absolute CD4 Count % CD8 Cells Absolute CD19 Count T.pallidum Ab (FTA-ABS) HIV-1 RNA PCR copies/ml HIV-1 RNA (PCR) log Miscellaneous Test 09/30/18 09/30/18 09/30/18 05:19 11:14 23:28 WBC RBC Hgb Hct RDW Plt Count Seg Neuts % (Manual) Lymphocytes % (Manual) Monocytes % (Manual) Eosinophils % (Manual) Basophils % (Manual) Nucleated RBC % Seg Neutrophils # Man Abs Lymphs (Manual) Lymphocytes # (Manual) PT INR APTT Heparin Anti-Xa Level 0.72 H POC ABG pH POC ABG pCO2 46.6 H POC ABG pO2 Sodium 150 H Potassium Chloride 115.2 H Carbon Dioxide BUN Creatinine Glucose POC Glucose Lactic Acid Calcium 7.9 L Phosphorus Magnesium Iron TIBC Ferritin AST ALT Total Creatine Kinase Total Protein Albumin Vitamin B12 Folate TSH Free T4 CSF VDRL Lymph Enumerat CD4/CD8 Absolute CD3 Count % CD4 Cells Absolute CD4 Count % CD8 Cells Absolute CD19 Count T.pallidum Ab (FTA-ABS) HIV-1 RNA PCR copies/ml HIV-1 RNA (PCR) log Miscellaneous Test 10/01/18 10/01/18 10/02/18 04:55 04:55 07:15 WBC 0.9 L* 0.7 L* RBC 3.01 L 2.92 L Hgb 8.4 L 8.4 L Hct 26.0 L 24.9 L RDW Plt Count Seg Neuts % (Manual) Lymphocytes % (Manual) Monocytes % (Manual) Eosinophils % (Manual) Basophils % (Manual) Nucleated RBC % Seg Neutrophils # Man Abs Lymphs (Manual) Lymphocytes # (Manual) PT INR APTT Heparin Anti-Xa Level POC ABG pH POC ABG pCO2 POC ABG pO2 Sodium 147 H Potassium 3.4 L Chloride 113.1 H Carbon Dioxide BUN 22 H Creatinine Glucose POC Glucose Lactic Acid Calcium 7.3 L Phosphorus Magnesium Iron TIBC Ferritin AST ALT Total Creatine Kinase Total Protein Albumin Vitamin B12 Folate TSH Free T4 CSF VDRL Lymph Enumerat CD4/CD8 Absolute CD3 Count % CD4 Cells Absolute CD4 Count % CD8 Cells Absolute CD19 Count T.pallidum Ab (FTA-ABS) HIV-1 RNA PCR copies/ml HIV-1 RNA (PCR) log Miscellaneous Test 10/02/18 10/03/18 10/03/18 07:15 06:12 06:12 WBC 0.8 L* RBC 2.96 L Hgb 8.5 L Hct 25.9 L RDW 15.4 H Plt Count Seg Neuts % (Manual) Lymphocytes % (Manual) Monocytes % (Manual) Eosinophils % (Manual) Basophils % (Manual) Nucleated RBC % Seg Neutrophils # Man Abs Lymphs (Manual) Lymphocytes # (Manual) PT INR APTT Heparin Anti-Xa Level POC ABG pH POC ABG pCO2 POC ABG pO2 Sodium Potassium 3.4 L 3.4 L Chloride 108.3 H Carbon Dioxide BUN Creatinine Glucose POC Glucose Lactic Acid Calcium 7.6 L 7.4 L Phosphorus Magnesium Iron TIBC Ferritin AST ALT Total Creatine Kinase Total Protein Albumin Vitamin B12 Folate TSH Free T4 CSF VDRL Lymph Enumerat CD4/CD8 Absolute CD3 Count % CD4 Cells Absolute CD4 Count % CD8 Cells Absolute CD19 Count T.pallidum Ab (FTA-ABS) HIV-1 RNA PCR copies/ml HIV-1 RNA (PCR) log Miscellaneous Test 10/03/18 10/03/18 10/04/18 11:45 13:23 01:40 WBC RBC Hgb Hct RDW Plt Count Seg Neuts % (Manual) Lymphocytes % (Manual) Monocytes % (Manual) Eosinophils % (Manual) Basophils % (Manual) Nucleated RBC % Seg Neutrophils # Man Abs Lymphs (Manual) Lymphocytes # (Manual) PT INR APTT Heparin Anti-Xa Level 1.34 H 0.26 L POC ABG pH POC ABG pCO2 POC ABG pO2 Sodium Potassium Chloride Carbon Dioxide BUN Creatinine Glucose POC Glucose Lactic Acid Calcium Phosphorus Magnesium 1.40 L Iron TIBC Ferritin AST ALT Total Creatine Kinase Total Protein Albumin Vitamin B12 Folate TSH Free T4 CSF VDRL Lymph Enumerat CD4/CD8 Absolute CD3 Count % CD4 Cells Absolute CD4 Count % CD8 Cells Absolute CD19 Count T.pallidum Ab (FTA-ABS) HIV-1 RNA PCR copies/ml HIV-1 RNA (PCR) log Miscellaneous Test 10/04/18 10/04/18 10/06/18 04:45 04:45 09:40 WBC 0.8 L* RBC 3.11 L Hgb 9.0 L Hct 27.4 L RDW 15.4 H Plt Count Seg Neuts % (Manual) Lymphocytes % (Manual) Monocytes % (Manual) Eosinophils % (Manual) Basophils % (Manual) Nucleated RBC % Seg Neutrophils # Man Abs Lymphs (Manual) Lymphocytes # (Manual) PT INR APTT Heparin Anti-Xa Level POC ABG pH POC ABG pCO2 POC ABG pO2 Sodium Potassium Chloride Carbon Dioxide BUN Creatinine 0.7 L Glucose POC Glucose Lactic Acid Calcium 7.5 L Phosphorus Magnesium Iron 35 L TIBC 157 L Ferritin AST ALT Total Creatine Kinase Total Protein Albumin Vitamin B12 Folate TSH Free T4 CSF VDRL Lymph Enumerat CD4/CD8 Absolute CD3 Count % CD4 Cells Absolute CD4 Count % CD8 Cells Absolute CD19 Count T.pallidum Ab (FTA-ABS) HIV-1 RNA PCR copies/ml HIV-1 RNA (PCR) log Miscellaneous Test 10/06/18 10/06/18 10/07/18 09:40 09:40 04:20 WBC 1.1 L* RBC 3.07 L Hgb 9.1 L Hct 27.3 L RDW 20.3 H Plt Count Seg Neuts % (Manual) Lymphocytes % (Manual) Monocytes % (Manual) Eosinophils % (Manual) Basophils % (Manual) Nucleated RBC % Seg Neutrophils # Man 0.7 L Abs Lymphs (Manual) Lymphocytes # (Manual) 0.3 L PT INR APTT Heparin Anti-Xa Level POC ABG pH POC ABG pCO2 POC ABG pO2 Sodium Potassium Chloride Carbon Dioxide BUN Creatinine Glucose POC Glucose Lactic Acid Calcium Phosphorus Magnesium Iron TIBC Ferritin 1126.0 H AST ALT Total Creatine Kinase Total Protein Albumin Vitamin B12 Folate 6.71 L TSH Free T4 CSF VDRL Lymph Enumerat CD4/CD8 Absolute CD3 Count % CD4 Cells Absolute CD4 Count % CD8 Cells Absolute CD19 Count T.pallidum Ab (FTA-ABS) HIV-1 RNA PCR copies/ml HIV-1 RNA (PCR) log Miscellaneous Test 10/07/18 04:20 WBC RBC Hgb Hct RDW Plt Count Seg Neuts % (Manual) Lymphocytes % (Manual) Monocytes % (Manual) Eosinophils % (Manual) Basophils % (Manual) Nucleated RBC % Seg Neutrophils # Man Abs Lymphs (Manual) Lymphocytes # (Manual) PT INR APTT Heparin Anti-Xa Level POC ABG pH POC ABG pCO2 POC ABG pO2 Sodium Potassium Chloride Carbon Dioxide BUN Creatinine 0.7 L Glucose POC Glucose Lactic Acid Calcium 7.9 L Phosphorus Magnesium Iron TIBC Ferritin AST ALT Total Creatine Kinase Total Protein 5.5 L Albumin 2.2 L Vitamin B12 Folate TSH Free T4 CSF VDRL Lymph Enumerat CD4/CD8 Absolute CD3 Count % CD4 Cells Absolute CD4 Count % CD8 Cells Absolute CD19 Count T.pallidum Ab (FTA-ABS) HIV-1 RNA PCR copies/ml HIV-1 RNA (PCR) log Miscellaneous Test Chest x-ray: pending Allied health notes reviewed: RT
--- NOTE | 2018-10-07 15:45 | Progress Note ---
Assessment and Plan Assessment and plan: Severe Sepsis. Etiology secondary to bacterial pneumonia +/- gastroenteritis with newly diagnosed with HIV. Fevers have also resolved since initiation of HAART. Cultures have negative thus far. Completed 10 days of Ceftriaxone, off since 10/03/2018. Acute hypoxemic respiratory failure. Etiology mostly secondary to mental status issues. Pulm following Disseminated CMV viremia: continue IV Ganciclovir 5 mg/kg q12 hrs, continue till CMV PCR is <200 Toxic metabolic encephalopathy. 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 Of note, MRI did not show ventriculitis. Ne urology re-consultation. A. fib with RVR. Converted to NSR. cont Amiodarone Cont Heparin drip. Neurosyphilis: CSF VDRL positive, off Ceftriaxone and back on IV Penicillin (will complete 21 days). Diarrhea. Resolved, etiology likely secondary to Giardia. Giardia antigen positive in stool. Completed several days of Flagyl. Oral candidiasis. Fluconazole HIV/AIDS. New Diagnosis. Started on HAART on 09/30, Tenofovir, Emtricitabine + Dolutegravir watch closely for IRIS continue atovaquone and azithromycin prophylaxis Neutropenia. 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 Also probably worse from ganciclovir. r/o disseminated MAC, thus far cultures negative. Hematology followed MAL. Resolved Prognosis is guarded. For Trach and PEG. Surg consulted Bedside trach/PEG scheduled for Oct 11 at 11am The high probability of a clinically significant, sudden or life threatening deterioration of the [neurological, respiratory and cardiac] system(s) required my full and direct attention, intervention and personal management. The aggregate critical care time was [33] minutes. This time is in addition to time spent performing reported procedures but includes the following: [x] Data Review and interpretation [x] Patient assessment and monitoring of vital signs [x] Documentation [x] Medication orders and management History Interval history: Patient is 33 yo initially presented with diarrhea, found to have pneumonia, sepsis, HIV/AIDS(new diagnosis) with CD4 count of 4. He was started on abx for PJP. His mental status has worsened with confusion, lethargy. LP done . He was diagnosed with neurosyphilis. Started on Penicillin. Closest family is sister in [place], and dr. Baltazar spoke to her several times about diagnosis but did not tell her about HIV/AIDS because of patient confidentiality. The patient decompensated on 2/5/19 with acute hypoxemic respiratory failure and worsening toxic metabolic encephalopathy requiring transfer to ICU and intubation. He now remains on mechanical ventilation. The patient was also noted to develop SVT requiring amiodarone drip as well as heparin drip. Hospitalist Physical - Constitutional Vitals: Temp Pulse Resp BP Pulse Ox 98.1 F 102 H 25 H 146/85 100 10/07/18 12:00 10/07/18 15:38 10/07/18 15:38 10/07/18 15:36 10/07/18 15:36 General appearance: Present: other (orally intubated, minimal response) - EENT Eyes: Present: PERRL, EOM intact ENT: hearing intact, clear oral mucosa, dentition normal - Neck Neck: Present: supple, normal ROM - Respiratory Respiratory effort: normal Respiratory: bilateral: CTA - Cardiovascular Rhythm: regular Heart Sounds: Present: S1 & S2. Absent: gallop, rub - Extremities Extremities: no ischemia, No edema, Full ROM - Abdominal General gastrointestinal: soft, non-tender, non-distended, normal bowel sounds - Integumentary Integumentary: Present: clear, warm, dry - Neurologic Neurologic: CNII-XII intact, moves all extremities Results - Labs CBC & Chem 7: 10/07/18 04:20 10/07/18 04:20 Labs: Laboratory Last Values WBC 1.1 K/mm3 (4.5-11.0) L* 10/07/18 04:20 RBC 3.07 M/mm3 (3.65-5.03) L 10/07/18 04:20 Hgb 9.1 gm/dl (11.8-15.2) L 10/07/18 04:20 Hct 27.3 % (35.5-45.6) L 10/07/18 04:20 MCV 89 fl (84-94) 10/07/18 04:20 MCH 30 pg (28-32) 10/07/18 04:20 MCHC 33 % (32-34) 10/07/18 04:20 RDW 20.3 % (13.2-15.2) H 10/07/18 04:20 Plt Count 229 K/mm3 (140-440) 10/07/18 04:20 [place] % (Auto) Attorney Recruiter 09/29/18 05:00 Baso % (Auto) Attorney Recruiter 09/29/18 05:00 Add Manual Diff Complete 10/07/18 04:20 Total Counted 100 10/07/18 04:20 Seg Neutrophils % Attorney Recruiter 09/29/18 05:00 Seg Neuts % (Manual) 66.0 % (40.0-70.0) 10/07/18 04:20 Band Neutrophils % 2.0 % 10/07/18 04:20 Lymphocytes % (Manual) 28.0 % (13.4-35.0) 10/07/18 04:20 Reactive Lymphs % (Man) 0 % 10/07/18 04:20 Monocytes % (Manual) 0 % (0.0-7.3) 10/07/18 04:20 Eosinophils % (Manual) 3.0 % (0.0-4.3) 10/07/18 04:20 Basophils % (Manual) 1.0 % (0.0-1.8) 10/07/18 04:20 Metamyelocytes % 0 % 10/07/18 04:20 Myelocytes % 0 % 10/07/18 04:20 Promyelocytes % 0 % 10/07/18 04:20 Blast Cells % 0 % 10/07/18 04:20 Nucleated RBC % Not Reportable 10/07/18 04:20 Seg Neutrophils # Man 0.7 K/mm3 (1.8-7.7) L 10/07/18 04:20 Band Neutrophils # 0.0 K/mm3 10/07/18 04:20 Abs Lymphs (Manual) 309 cells/uL (850-3900) L 09/13/18 12:29 Lymphocytes # (Manual) 0.3 K/mm3 (1.2-5.4) L 10/07/18 04:20 Abs React Lymphs (Man) 0.0 K/mm3 10/07/18 04:20 Monocytes # (Manual) 0.0 K/mm3 (0.0-0.8) 10/07/18 04:20 Eosinophils # (Manual) 0.0 K/mm3 (0.0-0.4) 10/07/18 04:20 Basophils # (Manual) 0.0 K/mm3 (0.0-0.1) 10/07/18 04:20 Metamyelocytes # 0.0 K/mm3 10/07/18 04:20 Myelocytes # 0.0 K/mm3 10/07/18 04:20 Promyelocytes # 0.0 K/mm3 10/07/18 04:20 Blast Cells # 0.0 K/mm3 10/07/18 04:20 WBC Morphology Not Reportable 10/07/18 04:20 Hypersegmented Neuts Not Reportable 10/07/18 04:20 Hyposegmented Neuts Not Reportable 10/07/18 04:20 Hypogranular Neuts Not Reportable 10/07/18 04:20 Smudge Cells Not Reportable 10/07/18 04:20 Toxic Granulation Not Reportable 10/07/18 04:20 Toxic Vacuolation Not Reportable 10/07/18 04:20 Dohle Bodies Not Reportable 10/07/18 04:20 Pelger-Huet Anomaly Not Reportable 10/07/18 04:20 Giovanna Rods Not Reportable 10/07/18 04:20 Platelet Estimate Appears normal 10/07/18 04:20 Clumped Platelets Not Reportable 10/07/18 04:20 Plt Clumps, EDTA Not Reportable 10/07/18 04:20 Large Platelets Rare 10/07/18 04:20 Giant Platelets Not Reportable 10/07/18 04:20 Platelet Satelliting Not Reportable 10/07/18 04:20 Plt Morphology Comment Not Reportable 10/07/18 04:20 RBC Morphology Not Reportable 10/07/18 04:20 Dimorphic RBCs Not Reportable 10/07/18 04:20 Polychromasia Not Reportable 10/07/18 04:20 Hypochromasia 1+ 10/07/18 04:20 Poikilocytosis Not Reportable 10/07/18 04:20 Anisocytosis 1+ 10/07/18 04:20 Microcytosis Not Reportable 10/07/18 04:20 Macrocytosis Not Reportable 10/07/18 04:20 Spherocytes Not Reportable 10/07/18 04:20 Pappenheimer Bodies Not Reportable 10/07/18 04:20 Sickle Cells Not Reportable 10/07/18 04:20 Target Cells Not Reportable 10/07/18 04:20 Tear Drop Cells Not Reportable 10/07/18 04:20 Ovalocytes 1+ 10/07/18 04:20 Stomatocytes 1+ 09/29/18 05:00 Helmet Cells Not Reportable 10/07/18 04:20 Ponce-Davy Bodies Not Reportable 10/07/18 04:20 Wishon Rings Not Reportable 10/07/18 04:20 Maysel Cells Not Reportable 10/07/18 04:20 Bite Cells Not Reportable 10/07/18 04:20 Crenated Cell Not Reportable 10/07/18 04:20 Elliptocytes Not Reportable 10/07/18 04:20 Acanthocytes (Spur) Not Reportable 10/07/18 04:20 Rouleaux Not Reportable 10/07/18 04:20 Hemoglobin C Crystals Not Reportable 10/07/18 04:20 Schistocytes Not Reportable 10/07/18 04:20 Malaria parasites Not Reportable 10/07/18 04:20 Kieran Bodies Not Reportable 10/07/18 04:20 Hem Pathologist Commnt No 10/07/18 04:20 PT 19.9 Sec. (12.2-14.9) H 09/21/18 15:00 INR 1.65 (0.87-1.13) H 09/21/18 15:00 APTT 40.9 Sec. (24.2-36.6) H 09/21/18 15:00 Heparin Anti-Xa Level 0.35 U.I./ml (0.3-0.7) 10/05/18 10:19 POC ABG pH 7.387 (7.35-7.45) 10/01/18 13:06 POC ABG pCO2 44.1 (35-45) 10/01/18 13:06 POC ABG pO2 83 (80-105) 10/01/18 13:06 POC ABG HCO3 26.5 10/01/18 13:06 POC ABG Total CO2 28 10/01/18 13:06 POC ABG O2 Sat 96 10/01/18 13:06 POC ABG Base Excess 2 10/01/18 13:06 FiO2 25 % 10/01/18 13:06 Sodium 142 mmol/L (137-145) 10/07/18 04:20 Potassium 3.9 mmol/L (3.6-5.0) 10/07/18 04:20 Chloride 105.0 mmol/L (98-107) 10/07/18 04:20 Carbon Dioxide 27 mmol/L (22-30) 10/07/18 04:20 Anion Gap 14 mmol/L 10/07/18 04:20 BUN 16 mg/dL (9-20) 10/07/18 04:20 Creatinine 0.7 mg/dL (0.8-1.5) L 10/07/18 04:20 Estimated GFR > 60 ml/min 10/07/18 04:20 BUN/Creatinine Ratio 23 % 10/07/18 04:20 Glucose 85 mg/dL (75-100) 10/07/18 04:20 POC Glucose 91 (70-105) 10/07/18 11:51 Lactic Acid 0.90 mmol/L (0.7-2.0) 09/11/18 20:17 Calcium 7.9 mg/dL (8.4-10.2) L 10/07/18 04:20 Phosphorus 3.10 mg/dL (2.5-4.5) D 09/27/18 04:11 Magnesium 1.40 mg/dL (1.7-2.3) L 10/03/18 13:23 Iron 35 ug/dL (49-181) L 10/06/18 09:40 TIBC 157 mcg/dL (250-450) L 10/06/18 09:40 Ferritin 1126.0 ng/mL (13.0-400.0) H 10/06/18 09:40 Total Bilirubin 0.30 mg/dL (0.1-1.2) 10/07/18 04:20 Direct Bilirubin < 0.2 mg/dL (0-0.2) 09/13/18 07:31 AST 30 units/L (5-40) 10/07/18 04:20 ALT 25 units/L (7-56) 10/07/18 04:20 Alkaline Phosphatase 57 units/L (35-129) 10/07/18 04:20 Ammonia 27.0 umol/L (25-60) 10/03/18 13:23 Total Creatine Kinase 685 units/L (55-170) H 09/21/18 04:25 CK-MB (CK-2) 3.5 ng/mL (0.0-4.0) 09/21/18 04:25 CK-MB (CK-2) Rel Index 0.5 (0-4) 09/21/18 04:25 NT-Pro-B Natriuret Pep 145.9 pg/mL (0-450) 09/18/18 16:07 Total Protein 5.5 g/dL (6.3-8.2) L 10/07/18 04:20 Albumin 2.2 g/dL (3.9-5) L 10/07/18 04:20 Albumin/Globulin Ratio 0.7 % 10/07/18 04:20 Vitamin B12 934.5 pg/mL (211-911) H 09/16/18 11:41 Folate 6.71 ng/mL (7.3-26.0) L 10/06/18 09:40 TSH 5.190 mlU/mL (0.270-4.200) H 09/18/18 12:46 Free T4 0.75 ng/dL (0.76-1.46) L 09/18/18 12:46 Urine Color [place] (Yellow) 09/11/18 Unknown Urine Turbidity Clear (Clear) 09/11/18 Unknown Urine pH 5.0 (5.0-7.0) 09/11/18 Unknown Ur Specific [place] 1.016 (1.003-1.030) 09/11/18 Unknown Urine Protein <15 mg/dl mg/dL (Negative) 09/11/18 Unknown Urine Glucose (UA) Neg mg/dL (Negative) 09/11/18 Unknown Urine Ketones Neg mg/dL (Negative) 09/11/18 Unknown Urine Blood Sm (Negative) 09/11/18 Unknown Urine Nitrite Neg (Negative) 09/11/18 Unknown Urine Bilirubin Neg (Negative) 09/11/18 Unknown Urine Urobilinogen < 2.0 mg/dL (<2.0) 09/11/18 Unknown Ur Leukocyte Esterase Neg (Negative) 09/11/18 Unknown Urine WBC (Auto) 1.0 /HPF (0.0-6.0) 09/11/18 Unknown Urine RBC (Auto) 3.0 /HPF (0.0-6.0) 09/11/18 Unknown Urine Mucus Few /HPF 09/11/18 Unknown CSF Appearance Clear 09/19/18 15:00 CSF Color Colorless 09/19/18 15:00 CSF WBC 4 /mm3 (1-10) 09/19/18 15:00 CSF RBC 583 /mm3 (0-0) 09/19/18 15:00 CSF Seg Neutrophils 21.4 % (0-6) 09/19/18 15:00 CSF Lymphocytes % 71.4 % (40-80) 09/19/18 15:00 CSF Reactive Lymphs 0 % 09/19/18 15:00 CSF Monocytes % 7.1 % (15-45) 09/19/18 15:00 CSF Eosinophils % 0 % 09/19/18 15:00 CSF Basophils 0 % 09/19/18 15:00 CSF Pathologist Review C 09/19/18 15:00 CSF Glucose 32 mg/dL 09/19/18 15:00 CSF Total Protein 123 mg/dL 09/19/18 15:00 CSF VDRL Reactive 1:4 (Nonreactive) H 09/19/18 15:00 Vancomycin Trough 14.3 ug/mL (5.0-20.0) 09/25/18 14:45 Urine Opiates Screen Presumptive negative 09/17/18 15:52 Urine Methadone Screen Presumptive negative 09/17/18 15:52 Ur Barbiturates Screen Presumptive negative 09/17/18 15:52 Ur Phencyclidine Scrn Presumptive negative 09/17/18 15:52 Ur Amphetamines Screen Presumptive negative 09/17/18 15:52 U Benzodiazepines Scrn Presumptive negative 09/17/18 15:52 Urine Cocaine Screen Presumptive negative 09/17/18 15:52 U Marijuana (THC) Screen Presumptive negative 09/17/18 15:52 Drugs of Abuse Note Disclamer 09/17/18 15:52 Lymph Enumerat CD4/CD8 0.01 (0.86-5.00) L 09/13/18 12:29 % CD3 Cells 71 % (57-85) 09/13/18 12:29 Absolute CD3 Count 220 cells/uL (840-3060) L 09/13/18 12:29 % CD4 Cells 1 % (30-61) L 09/13/18 12:29 Absolute CD4 Count 4 cells/uL (490-1740) L 09/13/18 12:29 % CD8 Cells 70 % (12-42) H 09/13/18 12:29 Absolute CD8 Count 216 cells/uL (180-1170) 09/13/18 12:29 % CD19 Cells 17 % (6-29) 09/13/18 12:29 Absolute CD19 Count 54 cells/uL (110-660) L 09/13/18 12:29 RPR Titer 1:16 09/13/18 12:29 RPR Reactive (Nonreactive) 09/13/18 12:29 T.pallidum Ab (FTA-ABS) Reactive (Nonreactive) H 09/14/18 16:34 C. difficile Toxin A&B Negative (Negative) 09/12/18 05:30 CMV DNA PCR log engraver copperplate/mL See scanned results 10/03/18 06:12 Hepatitis A IgM Ab Non-reactive (NonReactive) 09/13/18 12:29 Hep Bs Antigen Non-reactive (Negative) 09/13/18 12:29 Hep B Core IgM Ab Non-reactive (NonReactive) 09/13/18 12:29 Hepatitis C Antibody Non-reactive (NonReactive) 09/13/18 12:29 HIV-1 Antibody See scanned result 09/11/18 19:14 HIV-1 RNA PCR copies/ml [id number] Copies/mL H 09/13/18 12:29 HIV-1 RNA (PCR) log 4.71 Log cps/mL H 09/13/18 12:29 HIV-2 Ab (Immunoblot) See scanned result 09/11/18 19:14 HIV 1&2 Antibody Rapid Reactive (Non React) 09/11/18 19:14 HIV P24 Antigen Non react (Non React) 09/11/18 19:14 Influenza A (Rapid) Negative (Negative) 09/13/18 16:05 Influenza A (RT-PCR) Negative (Negative) 09/13/18 16:05 Influenza B (Rapid) Negative (Negative) 09/13/18 16:05 Influenza B (RT-PCR) Negative (Negative) 09/13/18 16:05 Toxoplasma IgG Ab <7.20 IU/mL (<7.20) 09/16/18 12:09 Miscellaneous Test see below 09/21/18 03:55 Nutrition/Malnutrition Assess - Dietary Evaluation Nutrition/Malnutrition Findings: Nutrition Notes Start: 09/12/18 17:45 Freq: Status: Active Protocol: Document 10/07/18 11:44 CP (Rec: 10/07/18 11:51 CP [id number]) Co-Sign 10/07/18 11:44 LP Nutrition Notes Initial or Follow up Reassessment Current Diagnosis Acute Kidney Injury Sepsis Respiratory Failure Other Pertinent Diagnosis HIV, bilat pneu, gastroenteritis, encephalopathy Current Diet TF- Vital High Protein at 70ml /hr Labs/Tests Cr: 0.7 PRO: 5.5 Pertinent Medications Reviewed Height 6 ft Weight 118 kg [place] Body Weight (kg) 80.90 BMI 35.2 Subjective/Other Information Observed TF running at goal ( 70 mL). Per nurse, water flush of 150 mL was administered 08 :00 today. Percent of energy/protein needs met: 93%/91% Burn Absent Trauma Absent #2 Nutrition Diagnosis Inadequate oral intake Diagnosis Progress(for reassessment Continues documentation) #1 Nutrition Diagnosis Malnutrition Diagnosis Progress(for reassessment Continues documentation) Is patient on ventilator? Yes Is Patient Ambulatory and/or Out of Bed No REE-([facility]-confined to bed) 2597.352 Kcal/Kg value to use for calculation 15 Approximate Energy Requirements Using 1770 kcal/Kg Additional Notes Pro needs 2g/kg IBW: 162g/day Fluid needs 1ml/kcal Nutrition Intervention Change Diet Order: Continue TF Nutrition Support: Vital HP at 70ml/hr Kcal 1,680 Protein (gm) 147 Fluid (mL) 1,404 Goal #1 Continue to meet at least 80% of PRO and kcal needs with TF. Follow-Up By: 10/14/18 Additional Comments F/U: Stable TF/TF tolerance
--- NOTE | 2018-10-07 17:26 | Electroencephalogram Report ---
Electroencephalogram EEG Date of exam: 10/05/18 History: Encephalopathy, neurosyphilis Description: EEG findings: This is a standard 23 channel (including 1 EKG channel showing tachycardia) digital EEG 20 minute recording using the 10/20 international montage. There is 6-7 Hz alpha activity in the posterior leads which is fragmentary, and some anterior beta activity. Recording is noisy with EMG and movement artifacts. There is slowing in the theta range frontotemporally bilaterally. Patient is febrile with parts identification technician noting that fever was melting the EEG paste. No epileptiform activity was seen. Interpretation: EEG reading: Moderately abnormal EEG due to slowing which could be due to metabolic or other diffuse causes. Reviewed prior EEG of 09/19/18 which showed slowing in the left frontocentral and frontotemporal regions. No epileptiform activity was seen on that EEG either. This EEG does not exclude epilepsy of partial onset. Up to 4 EEGs over several months may be needed to capture interictal epileptiform activity.
[2018-10-08] MEDS: PFIZERPEN 5 MIL.UNITS in NACL 0.9% 50 ML IV SCH ×6 (01:32→21:33)
[2018-10-08] MEDS: ROBINUL PO SCH ×4 (01:37→18:23)
[2018-10-08] MEDS: CYTOVENE 500 MG in NACL 0.9% 250ML 250 ML IV SCH ×2 (01:39→13:44)
[2018-10-08] MEDS: PROVENTIL IH SCH ×4 (02:15→19:13)
[2018-10-08] MEDS: LOPRESSOR IV SCH ×4 (03:00→21:34)
[2018-10-08] MEDS: HEPARIN SUB-Q SCH ×3 (05:00→21:34)
[2018-10-08] MEDS: SYNTHROID PO SCH (05:01)
[2018-10-08] MEDS: PEPCID PO SCH ×2 (09:55→21:34)
[2018-10-08] MEDS: CORDARONE PO SCH ×2 (09:55→21:34)
[2018-10-08] MEDS: FOLVITE PO SCH (09:55)
[2018-10-08] MEDS: SODIUM CHLORIDE FLUSH SYRINGE 10 ML IV SCH ×2 (09:56→21:35)
[2018-10-08] MEDS: VIREAD PO SCH (09:56)
[2018-10-08] MEDS: MEPRON PO SCH ×2 (09:56→21:33)
[2018-10-08] MEDS: EMTRIVA PO SCH (09:56)
[2018-10-08] MEDS: TIVICAY PO SCH (09:57)
[2018-10-08] MEDS: DIFLUCAN PO SCH (10:00)
--- NOTE | 2018-10-08 14:45 | Progress Note ---
Assessment and Plan Assessment and plan: Severe Sepsis. Etiology secondary to bacterial pneumonia +/- gastroenteritis with newly diagnosed with HIV. Fevers have also resolved since initiation of HAART. Cultures have negative thus far. Completed 10 days of Ceftriaxone, off since 10/03/2018. Acute hypoxemic respiratory failure. Etiology mostly secondary to mental status issues. Pulm following Disseminated CMV viremia: continue IV Ganciclovir 5 mg/kg q12 hrs, continue till CMV PCR is <200 Toxic metabolic encephalopathy. 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 Of note, MRI did not show ventriculitis. Ne urology re-consultation. A. fib with RVR. Converted to NSR. cont Amiodarone Cont Heparin drip. Neurosyphilis: CSF VDRL positive, off Ceftriaxone and back on IV Penicillin (will complete 21 days). Diarrhea. Resolved, etiology likely secondary to Giardia. Giardia antigen positive in stool. Completed several days of Flagyl. Oral candidiasis. Fluconazole HIV/AIDS. New Diagnosis. Started on HAART on 09/30, Tenofovir, Emtricitabine + Dolutegravir watch closely for IRIS continue atovaquone and azithromycin prophylaxis Neutropenia. 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 Also probably worse from ganciclovir. r/o disseminated MAC, thus far cultures negative. Hematology followed MAL. Resolved Prognosis is guarded. For Trach and PEG. Surg consulted Bedside trach/PEG scheduled for Oct 11 at 11am The high probability of a clinically significant, sudden or life threatening deterioration of the [neurological, respiratory and cardiac] system(s) required my full and direct attention, intervention and personal management. The aggregate critical care time was [32] minutes. This time is in addition to time spent performing reported procedures but includes the following: [x] Data Review and interpretation [x] Patient assessment and monitoring of vital signs [x] Documentation [x] Medication orders and management History Interval history: Patient is 33 yo initially presented with diarrhea, found to have pneumonia, sepsis, HIV/AIDS(new diagnosis) with CD4 count of 4. He was started on abx for PJP. His mental status has worsened with confusion, lethargy. LP done . He was diagnosed with neurosyphilis. Started on Penicillin. Closest family is sister in [place], and dr. Baltazar spoke to her several times about diagnosis but did not tell her about HIV/AIDS because of patient confidentiality. The patient decompensated on 2/5/19 with acute hypoxemic respiratory failure and worsening toxic metabolic encephalopathy requiring transfer to ICU and intubation. He now remains on mechanical ventilation. The patient was also noted to develop SVT requiring amiodarone drip as well as heparin drip. Hospitalist Physical - Constitutional Vitals: Temp Pulse Resp BP Pulse Ox 99.7 F H 113 H 32 H 152/88 99 10/08/18 12:00 10/08/18 14:29 10/08/18 14:29 10/08/18 14:00 10/08/18 14:00 General appearance: Present: other (orally intubated, minimal response) - EENT Eyes: Present: PERRL, EOM intact ENT: hearing intact, clear oral mucosa, dentition normal - Neck Neck: Present: supple, normal ROM - Respiratory Respiratory effort: normal Respiratory: bilateral: CTA - Cardiovascular Rhythm: regular Heart Sounds: Present: S1 & S2. Absent: gallop, rub - Extremities Extremities: no ischemia, No edema, Full ROM - Abdominal General gastrointestinal: soft, non-tender, non-distended, normal bowel sounds - Integumentary Integumentary: Present: clear, warm, dry - Neurologic Neurologic: CNII-XII intact, moves all extremities Results - Labs CBC & Chem 7: 10/07/18 04:20 10/07/18 04:20 Labs: Laboratory Last Values WBC 1.1 K/mm3 (4.5-11.0) L* 10/07/18 04:20 RBC 3.07 M/mm3 (3.65-5.03) L 10/07/18 04:20 Hgb 9.1 gm/dl (11.8-15.2) L 10/07/18 04:20 Hct 27.3 % (35.5-45.6) L 10/07/18 04:20 MCV 89 fl (84-94) 10/07/18 04:20 MCH 30 pg (28-32) 10/07/18 04:20 MCHC 33 % (32-34) 10/07/18 04:20 RDW 20.3 % (13.2-15.2) H 10/07/18 04:20 Plt Count 229 K/mm3 (140-440) 10/07/18 04:20 [place] % (Auto) Hairspring Vibrator 09/29/18 05:00 Baso % (Auto) Hairspring Vibrator 09/29/18 05:00 Add Manual Diff Complete 10/07/18 04:20 Total Counted 100 10/07/18 04:20 Seg Neutrophils % Hairspring Vibrator 09/29/18 05:00 Seg Neuts % (Manual) 66.0 % (40.0-70.0) 10/07/18 04:20 Band Neutrophils % 2.0 % 10/07/18 04:20 Lymphocytes % (Manual) 28.0 % (13.4-35.0) 10/07/18 04:20 Reactive Lymphs % (Man) 0 % 10/07/18 04:20 Monocytes % (Manual) 0 % (0.0-7.3) 10/07/18 04:20 Eosinophils % (Manual) 3.0 % (0.0-4.3) 10/07/18 04:20 Basophils % (Manual) 1.0 % (0.0-1.8) 10/07/18 04:20 Metamyelocytes % 0 % 10/07/18 04:20 Myelocytes % 0 % 10/07/18 04:20 Promyelocytes % 0 % 10/07/18 04:20 Blast Cells % 0 % 10/07/18 04:20 Nucleated RBC % Not Reportable 10/07/18 04:20 Seg Neutrophils # Man 0.7 K/mm3 (1.8-7.7) L 10/07/18 04:20 Band Neutrophils # 0.0 K/mm3 10/07/18 04:20 Abs Lymphs (Manual) 309 cells/uL (850-3900) L 09/13/18 12:29 Lymphocytes # (Manual) 0.3 K/mm3 (1.2-5.4) L 10/07/18 04:20 Abs React Lymphs (Man) 0.0 K/mm3 10/07/18 04:20 Monocytes # (Manual) 0.0 K/mm3 (0.0-0.8) 10/07/18 04:20 Eosinophils # (Manual) 0.0 K/mm3 (0.0-0.4) 10/07/18 04:20 Basophils # (Manual) 0.0 K/mm3 (0.0-0.1) 10/07/18 04:20 Metamyelocytes # 0.0 K/mm3 10/07/18 04:20 Myelocytes # 0.0 K/mm3 10/07/18 04:20 Promyelocytes # 0.0 K/mm3 10/07/18 04:20 Blast Cells # 0.0 K/mm3 10/07/18 04:20 WBC Morphology Not Reportable 10/07/18 04:20 Hypersegmented Neuts Not Reportable 10/07/18 04:20 Hyposegmented Neuts Not Reportable 10/07/18 04:20 Hypogranular Neuts Not Reportable 10/07/18 04:20 Smudge Cells Not Reportable 10/07/18 04:20 Toxic Granulation Not Reportable 10/07/18 04:20 Toxic Vacuolation Not Reportable 10/07/18 04:20 Dohle Bodies Not Reportable 10/07/18 04:20 Pelger-Huet Anomaly Not Reportable 10/07/18 04:20 Giovanna Rods Not Reportable 10/07/18 04:20 Platelet Estimate Appears normal 10/07/18 04:20 Clumped Platelets Not Reportable 10/07/18 04:20 Plt Clumps, EDTA Not Reportable 10/07/18 04:20 Large Platelets Rare 10/07/18 04:20 Giant Platelets Not Reportable 10/07/18 04:20 Platelet Satelliting Not Reportable 10/07/18 04:20 Plt Morphology Comment Not Reportable 10/07/18 04:20 RBC Morphology Not Reportable 10/07/18 04:20 Dimorphic RBCs Not Reportable 10/07/18 04:20 Polychromasia Not Reportable 10/07/18 04:20 Hypochromasia 1+ 10/07/18 04:20 Poikilocytosis Not Reportable 10/07/18 04:20 Anisocytosis 1+ 10/07/18 04:20 Microcytosis Not Reportable 10/07/18 04:20 Macrocytosis Not Reportable 10/07/18 04:20 Spherocytes Not Reportable 10/07/18 04:20 Pappenheimer Bodies Not Reportable 10/07/18 04:20 Sickle Cells Not Reportable 10/07/18 04:20 Target Cells Not Reportable 10/07/18 04:20 Tear Drop Cells Not Reportable 10/07/18 04:20 Ovalocytes 1+ 10/07/18 04:20 Stomatocytes 1+ 09/29/18 05:00 Helmet Cells Not Reportable 10/07/18 04:20 P[place]-Ben[place]z Bodies Not Reportable 10/07/18 04:20 [place] Rings Not Reportable 10/07/18 04:20 Dioni Cells Not Reportable 10/07/18 04:20 Bite Cells Not Reportable 10/07/18 04:20 Crenated Cell Not Reportable 10/07/18 04:20 Elliptocytes Not Reportable 10/07/18 04:20 Acanthocytes (Spur) Not Reportable 10/07/18 04:20 Rouleaux Not Reportable 10/07/18 04:20 Hemoglobin C Crystals Not Reportable 10/07/18 04:20 Schistocytes Not Reportable 10/07/18 04:20 Malaria parasites Not Reportable 10/07/18 04:20 Kieran Bodies Not Reportable 10/07/18 04:20 Hem Pathologist Commnt No 10/07/18 04:20 PT 19.9 Sec. (12.2-14.9) H 09/21/18 15:00 INR 1.65 (0.87-1.13) H 09/21/18 15:00 APTT 40.9 Sec. (24.2-36.6) H 09/21/18 15:00 Heparin Anti-Xa Level 0.35 U.I./ml (0.3-0.7) 10/05/18 10:19 POC ABG pH 7.516 (7.35-7.45) H 10/07/18 15:38 POC ABG pCO2 32.1 (35-45) L 10/07/18 15:38 POC ABG pO2 93 (80-105) 10/07/18 15:38 POC ABG HCO3 26.0 10/07/18 15:38 POC ABG Total CO2 27 10/07/18 15:38 POC ABG O2 Sat 98 10/07/18 15:38 POC ABG Base Excess 3 10/07/18 15:38 FiO2 25 % 10/07/18 15:38 Sodium 142 mmol/L (137-145) 10/07/18 04:20 Potassium 3.9 mmol/L (3.6-5.0) 10/07/18 04:20 Chloride 105.0 mmol/L (98-107) 10/07/18 04:20 Carbon Dioxide 27 mmol/L (22-30) 10/07/18 04:20 Anion Gap 14 mmol/L 10/07/18 04:20 BUN 16 mg/dL (9-20) 10/07/18 04:20 Creatinine 0.7 mg/dL (0.8-1.5) L 10/07/18 04:20 Estimated GFR > 60 ml/min 10/07/18 04:20 BUN/Creatinine Ratio 23 % 10/07/18 04:20 Glucose 85 mg/dL (75-100) 10/07/18 04:20 POC Glucose 98 (70-105) 10/08/18 11:48 Lactic Acid 0.90 mmol/L (0.7-2.0) 09/11/18 20:17 Calcium 7.9 mg/dL (8.4-10.2) L 10/07/18 04:20 Phosphorus 3.10 mg/dL (2.5-4.5) D 09/27/18 04:11 Magnesium 1.40 mg/dL (1.7-2.3) L 10/03/18 13:23 Iron 35 ug/dL (49-181) L 10/06/18 09:40 TIBC 157 mcg/dL (250-450) L 10/06/18 09:40 Ferritin 1126.0 ng/mL (13.0-400.0) H 10/06/18 09:40 Total Bilirubin 0.30 mg/dL (0.1-1.2) 10/07/18 04:20 Direct Bilirubin < 0.2 mg/dL (0-0.2) 09/13/18 07:31 AST 30 units/L (5-40) 10/07/18 04:20 ALT 25 units/L (7-56) 10/07/18 04:20 Alkaline Phosphatase 57 units/L (35-129) 10/07/18 04:20 Ammonia 27.0 umol/L (25-60) 10/03/18 13:23 Total Creatine Kinase 685 units/L (55-170) H 09/21/18 04:25 CK-MB (CK-2) 3.5 ng/mL (0.0-4.0) 09/21/18 04:25 CK-MB (CK-2) Rel Index 0.5 (0-4) 09/21/18 04:25 NT-Pro-B Natriuret Pep 145.9 pg/mL (0-450) 09/18/18 16:07 Total Protein 5.5 g/dL (6.3-8.2) L 10/07/18 04:20 Albumin 2.2 g/dL (3.9-5) L 10/07/18 04:20 Albumin/Globulin Ratio 0.7 % 10/07/18 04:20 Vitamin B12 934.5 pg/mL (211-911) H 09/16/18 11:41 Folate 6.71 ng/mL (7.3-26.0) L 10/06/18 09:40 TSH 5.190 mlU/mL (0.270-4.200) H 09/18/18 12:46 Free T4 0.75 ng/dL (0.76-1.46) L 09/18/18 12:46 Urine Color [place] (Yellow) 09/11/18 Unknown Urine Turbidity Clear (Clear) 09/11/18 Unknown Urine pH 5.0 (5.0-7.0) 09/11/18 Unknown Ur Specific [place] 1.016 (1.003-1.030) 09/11/18 Unknown Urine Protein <15 mg/dl mg/dL (Negative) 09/11/18 Unknown Urine Glucose (UA) Neg mg/dL (Negative) 09/11/18 Unknown Urine Ketones Neg mg/dL (Negative) 09/11/18 Unknown Urine Blood Sm (Negative) 09/11/18 Unknown Urine Nitrite Neg (Negative) 09/11/18 Unknown Urine Bilirubin Neg (Negative) 09/11/18 Unknown Urine Urobilinogen < 2.0 mg/dL (<2.0) 09/11/18 Unknown Ur Leukocyte Esterase Neg (Negative) 09/11/18 Unknown Urine WBC (Auto) 1.0 /HPF (0.0-6.0) 09/11/18 Unknown Urine RBC (Auto) 3.0 /HPF (0.0-6.0) 09/11/18 Unknown Urine Mucus Few /HPF 09/11/18 Unknown CSF Appearance Clear 09/19/18 15:00 CSF Color Colorless 09/19/18 15:00 CSF WBC 4 /mm3 (1-10) 09/19/18 15:00 CSF RBC 583 /mm3 (0-0) 09/19/18 15:00 CSF Seg Neutrophils 21.4 % (0-6) 09/19/18 15:00 CSF Lymphocytes % 71.4 % (40-80) 09/19/18 15:00 CSF Reactive Lymphs 0 % 09/19/18 15:00 CSF Monocytes % 7.1 % (15-45) 09/19/18 15:00 CSF Eosinophils % 0 % 09/19/18 15:00 CSF Basophils 0 % 09/19/18 15:00 CSF Pathologist Review C 09/19/18 15:00 CSF Glucose 32 mg/dL 09/19/18 15:00 CSF Total Protein 123 mg/dL 09/19/18 15:00 CSF VDRL Reactive 1:4 (Nonreactive) H 09/19/18 15:00 Vancomycin Trough 14.3 ug/mL (5.0-20.0) 09/25/18 14:45 Urine Opiates Screen Presumptive negative 09/17/18 15:52 Urine Methadone Screen Presumptive negative 09/17/18 15:52 Ur Barbiturates Screen Presumptive negative 09/17/18 15:52 Ur Phencyclidine Scrn Presumptive negative 09/17/18 15:52 Ur Amphetamines Screen Presumptive negative 09/17/18 15:52 U Benzodiazepines Scrn Presumptive negative 09/17/18 15:52 Urine Cocaine Screen Presumptive negative 09/17/18 15:52 U Marijuana (THC) Screen Presumptive negative 09/17/18 15:52 Drugs of Abuse Note Disclamer 09/17/18 15:52 Lymph Enumerat CD4/CD8 0.01 (0.86-5.00) L 09/13/18 12:29 % CD3 Cells 71 % (57-85) 09/13/18 12:29 Absolute CD3 Count 220 cells/uL (840-3060) L 09/13/18 12:29 % CD4 Cells 1 % (30-61) L 09/13/18 12:29 Absolute CD4 Count 4 cells/uL (490-1740) L 09/13/18 12:29 % CD8 Cells 70 % (12-42) H 09/13/18 12:29 Absolute CD8 Count 216 cells/uL (180-1170) 09/13/18 12:29 % CD19 Cells 17 % (6-29) 09/13/18 12:29 Absolute CD19 Count 54 cells/uL (110-660) L 09/13/18 12:29 RPR Titer 1:16 09/13/18 12:29 RPR Reactive (Nonreactive) 09/13/18 12:29 T.pallidum Ab (FTA-ABS) Reactive (Nonreactive) H 09/14/18 16:34 C. difficile Toxin A&B Negative (Negative) 09/12/18 05:30 CMV DNA PCR log messenger copy/mL See scanned results 10/03/18 06:12 Hepatitis A IgM Ab Non-reactive (NonReactive) 09/13/18 12:29 Hep Bs Antigen Non-reactive (Negative) 09/13/18 12:29 Hep B Core IgM Ab Non-reactive (NonReactive) 09/13/18 12:29 Hepatitis C Antibody Non-reactive (NonReactive) 09/13/18 12:29 HIV-1 Antibody See scanned result 09/11/18 19:14 HIV-1 RNA PCR copies/ml 61455 Copies/mL H 09/13/18 12:29 HIV-1 RNA (PCR) log 4.71 Log cps/mL H 09/13/18 12:29 HIV-2 Ab (Immunoblot) See scanned result 09/11/18 19:14 HIV 1&2 Antibody Rapid Reactive (Non React) 09/11/18 19:14 HIV P24 Antigen Non react (Non React) 09/11/18 19:14 Influenza A (Rapid) Negative (Negative) 09/13/18 16:05 Influenza A (RT-PCR) Negative (Negative) 09/13/18 16:05 Influenza B (Rapid) Negative (Negative) 09/13/18 16:05 Influenza B (RT-PCR) Negative (Negative) 09/13/18 16:05 Toxoplasma IgG Ab <7.20 IU/mL (<7.20) 09/16/18 12:09 Miscellaneous Test see below 09/21/18 03:55 Nutrition/Malnutrition Assess - Dietary Evaluation Nutrition/Malnutrition Findings: Nutrition Notes Start: 09/12/18 17:45 Freq: Status: Active Protocol: Document 10/07/18 11:44 CP (Rec: 10/07/18 11:51 CP [id number]) Co-Sign 10/07/18 11:44 LP Nutrition Notes Initial or Follow up Reassessment Current Diagnosis Acute Kidney Injury Sepsis Respiratory Failure Other Pertinent Diagnosis HIV, bilat pneu, gastroenteritis, encephalopathy Current Diet TF- Vital High Protein at 70ml /hr Labs/Tests Cr: 0.7 PRO: 5.5 Pertinent Medications Reviewed Height 6 ft Weight 118 kg [place] Body Weight (kg) 80.90 BMI 35.2 Subjective/Other Information Observed TF running at goal ( 70 mL). Per nurse, water flush of 150 mL was administered 08 :00 today. Percent of energy/protein needs met: 93%/91% Burn Absent Trauma Absent #2 Nutrition Diagnosis Inadequate oral intake Diagnosis Progress(for reassessment Continues documentation) #1 Nutrition Diagnosis Malnutrition Diagnosis Progress(for reassessment Continues documentation) Is patient on ventilator? Yes Is Patient Ambulatory and/or Out of Bed No REE-([place]-confined to bed) 2597.352 Kcal/Kg value to use for calculation 15 Approximate Energy Requirements Using 1770 kcal/Kg Additional Notes Pro needs 2g/kg IBW: 162g/day Fluid needs 1ml/kcal Nutrition Intervention Change Diet Order: Continue TF Nutrition Support: Vital HP at 70ml/hr Kcal 1,680 Protein (gm) 147 Fluid (mL) 1,404 Goal #1 Continue to meet at least 80% of PRO and kcal needs with TF. Follow-Up By: 10/14/18 Additional Comments F/U: Stable TF/TF tolerance
--- NOTE | 2018-10-08 14:47 | Progress Note ---
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) Elevated LFTs Neutropenia Thrombocytopenia (His mental status remains the rate limiting step to safe extubation for now) - repeat CXR pending - neurology evaluation ongoing; will consider repeat CT brain if clinical picture changes - Trach / PEG tentatively on 10/11/18 - 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 - continue Robinul & scopolamine for secretion control (increased Robinul to q6h) - continue to hold all other sedating medications - will continue daytime SBT's for now while following mental status - continue anti-infective's per ID recs (ART has been started appropriately) - reglan stopped - continue supplemental oxygen to keep sats > 90% - continue bronchodilators with pulmonary hygiene per RT - Continue empiric and targeted anti-infective's per ID recs antibiotics per ID - continue set rate at 12/min - continue daily SBT's - daily SAT's once sedation resumed - continue IV heparin for NSTEMI - continue Robinul 2 mg q8h for secretions - IV amiodarone stopped - cardiology evaluation ongoing - diarrhea improved - continue fluconazole for candidiasis - watch for drug-drug interactions - continue enteral nutrition as tolerated - when resumed target sedation for RASS 0 to -1 - PT/OT/ROM exercises as tolerated - mobility protocol for pressure ulcer prophylaxis - continue GI & VTE prophylaxis - continue other care per attending / other consultants ...... re-evaluate in am & prn ..... care plan discussed with relative who will be here for his trach/peg on and all pertinent question were answered as best i could The high probability of a clinically significant, sudden or life threatening deterioration of the [cardiac, respiratory and neurologic] system(s) required my full and direct attention, intervention and personal management. The aggregate critical care time was [35] minutes. This time is in addition to time spent performing reported procedures but includes the following: [x] Data Review and interpretation [x] Patient assessment and monitoring of vital signs [x] Documentation [x] Medication orders and management Subjective Date of service: 10/08/18 Principal diagnosis: Severe sepsis; Ac hypoxemic Resp failure; [place]. Pneumonia; Ac encephalopathy Interval history: Patient is seen today for: Severe sepsis (present on admission with fever, tachycardia, hypotension and elevated lactate); Acute hypoxemic Respiratory failure; Bilateral pneumonia; Acute encephalopathy (Toxic / Metabolic); Atrial Fibrillation with RVR Seen and examined at bedside; 24hour events reviewed; nursing and respiratory care staff consulted; no adverse overnight events reported to me; relative visiting; remains on MVS; less movt of left side extremities but nods head appropriately to my questions; no emesis or overt aspirations; oropharyngeal secretions still large Objective Vital Signs - 12hr 10/08/18 10/08/18 10/08/18 03:00 03:29 03:31 Temperature Pulse Rate 112 H 110 H 110 H Pulse Rate [ 110 H From Monitor] Pulse Rate [ 110 H Left Dorsalis Pedis] Pulse Rate [ Throughout] Respiratory 20 27 H Rate Respiratory Rate [ Generalized] Respiratory Rate [ Throughout] Blood Pressure 133/85 131/87 133/85 O2 Sat by Pulse 100 99 100 Oximetry 10/08/18 10/08/18 10/08/18 04:00 04:31 05:00 Temperature 98.9 F Pulse Rate 110 H 114 H 100 H Pulse Rate [ From Monitor] Pulse Rate [ Left Dorsalis Pedis] Pulse Rate [ Throughout] Respiratory 28 H 32 H 27 H Rate Respiratory Rate [ Generalized] Respiratory Rate [ Throughout] Blood Pressure 128/87 133/85 126/67 O2 Sat by Pulse 100 100 99 Oximetry 10/08/18 10/08/18 10/08/18 05:11 05:31 06:00 Temperature 98.4 F Pulse Rate 102 H 105 H Pulse Rate [ From Monitor] Pulse Rate [ Left Dorsalis Pedis] Pulse Rate [ Throughout] Respiratory 24 28 H Rate Respiratory Rate [ Generalized] Respiratory Rate [ Throughout] Blood Pressure 126/67 125/83 O2 Sat by Pulse 99 100 Oximetry 10/08/18 10/08/18 10/08/18 06:31 07:00 07:31 Temperature Pulse Rate 102 H 106 H 111 H Pulse Rate [ From Monitor] Pulse Rate [ Left Dorsalis Pedis] Pulse Rate [ Throughout] Respiratory 26 H 28 H 30 H Rate Respiratory Rate [ Generalized] Respiratory Rate [ Throughout] Blood Pressure 125/83 136/78 136/78 O2 Sat by Pulse 100 100 100 Oximetry 10/08/18 10/08/1810/08/19 08:00 08:31 08:49 Temperature 97.1 F L Pulse Rate 111 H 115 H 112 H Pulse Rate [ 112 H From Monitor] Pulse Rate [ Left Dorsalis Pedis] Pulse Rate [ Throughout] Respiratory 29 H 31 H 32 H Rate Respiratory Rate [ Generalized] Respiratory Rate [ Throughout] Blood Pressure 142/77 142/77 139/85 O2 Sat by Pulse 100 100 100 Oximetry 10/08/18 10/08/18 10/08/18 08:53 09:00 09:07 Temperature Pulse Rate 113 H Pulse Rate [ From Monitor] Pulse Rate [ Left Dorsalis Pedis] Pulse Rate [ 113 H 112 H Throughout] Respiratory 22 Rate Respiratory Rate [ Generalized] Respiratory 32 H 31 H Rate [ Throughout] Blood Pressure 144/86 O2 Sat by Pulse 100 Oximetry 10/08/18 10/08/18 10/08/18 09:31 09:59 10:00 Temperature Pulse Rate 112 H 112 H 113 H Pulse Rate [ From Monitor] Pulse Rate [ Left Dorsalis Pedis] Pulse Rate [ Throughout] Respiratory 26 H 12 Rate Respiratory Rate [ Generalized] Respiratory Rate [ Throughout] Blood Pressure 142/77 144/86 145/83 O2 Sat by Pulse 100 100 Oximetry 10/08/18 10/08/18 10/08/18 10:31 11:00 11:31 Temperature Pulse Rate 99 H 107 H 106 H Pulse Rate [ From Monitor] Pulse Rate [ Left Dorsalis Pedis] Pulse Rate [ Throughout] Respiratory 30 H 28 H 29 H Rate Respiratory Rate [ Generalized] Respiratory Rate [ Throughout] Blood Pressure 145/83 142/85 145/83 O2 Sat by Pulse 100 100 100 Oximetry 10/08/18 10/08/18 10/08/18 11:34 12:00 12:31 Temperature 99.7 F H Pulse Rate 106 H 109 H 106 H Pulse Rate [ 110 H From Monitor] Pulse Rate [ Left Dorsalis Pedis] Pulse Rate [ Throughout] Respiratory 27 H 23 28 H Rate Respiratory Rate [ Generalized] Respiratory Rate [ Throughout] Blood Pressure 142/85 146/91 146/91 O2 Sat by Pulse 100 100 99 Oximetry 10/08/18 10/08/18 10/08/18 13:00 13:31 14:00 Temperature Pulse Rate 108 H 109 H 111 H Pulse Rate [ From Monitor] Pulse Rate [ Left Dorsalis Pedis] Pulse Rate [ Throughout] Respiratory 27 H 32 H 26 H Rate Respiratory 17 Rate [ Generalized] Respiratory Rate [ Throughout] Blood Pressure 145/86 145/86 152/88 O2 Sat by Pulse 100 99 99 Oximetry 10/08/18 14:29 Temperature Pulse Rate Pulse Rate [ From Monitor] Pulse Rate [ Left Dorsalis Pedis] Pulse Rate [ 113 H Throughout] Respiratory Rate Respiratory Rate [ Generalized] Respiratory 32 H Rate [ Throughout] Blood Pressure O2 Sat by Pulse Oximetry Constitutional: lethargic, agitated, appears uncomfortable, other (orally intubated ETT at 23cm) Eyes: non-icteric ENT: oropharynx moist, other (ETT 25 cm NIKA) Neck: supple, no lymphadenopathy, other (no thyromegaly) Effort: normal Ascultation: Bilateral: rales, rhonchi (scant) Percussion: Bilateral: not dull Cardiovascular: regular rate and rhythm, other (S1,S2, no murmurs, gallps or rubs) Gastrointestinal: normoactive bowel sounds, soft, non-tender, non-distended Integumentary: rash Extremities: no cyanosis, pulses normal, no ischemia or petechiae, edema Neurologic: non-focal exam (grossly), pupils equal and round, motor strength normal and (weak ) Psychiatric: other (unable to assess) CBC and BMP: 10/09/18 04:20 10/09/18 04:20 ABG, PT/INR, D-dimer: ABG POC ABG pH 7.516 (7.35-7.45) H 10/07/18 15:38 POC ABG pCO2 32.1 (35-45) L 10/07/18 15:38 POC ABG pO2 93 (80-105) 10/07/18 15:38 POC ABG HCO3 26.0 10/07/18 15:38 POC ABG Total CO2 27 10/07/18 15:38 POC ABG O2 Sat 98 10/07/18 15:38 PT/INR, D-dimer PT 19.9 Sec. (12.2-14.9) H 09/21/18 15:00 INR 1.65 (0.87-1.13) H 09/21/18 15:00 Abnormal lab findings: Abnormal Labs 09/11/18 09/11/18 09/11/18 18:00 18:00 18:00 WBC 1.9 L* RBC Hgb Hct RDW Plt Count 130 L Seg Neuts % (Manual) Lymphocytes % (Manual) Monocytes % (Manual) 16.0 H Eosinophils % (Manual) Basophils % (Manual) Nucleated RBC % Seg Neutrophils # Man 0.9 L Abs Lymphs (Manual) Lymphocytes # (Manual) 0.5 L PT INR APTT Heparin Anti-Xa Level POC ABG pH POC ABG pCO2 POC ABG pO2 Sodium 131 L Potassium Chloride Carbon Dioxide 17 L BUN 21 H Creatinine Glucose 126 H POC Glucose Lactic Acid 2.60 H* Calcium 8.1 L Phosphorus Magnesium Iron TIBC Ferritin AST 123 H ALT 115 H Total Creatine Kinase Total Protein Albumin 3.0 L Vitamin B12 Folate TSH Free T4 CSF VDRL Lymph Enumerat CD4/CD8 Absolute CD3 Count % CD4 Cells Absolute CD4 Count % CD8 Cells Absolute CD19 Count T.pallidum Ab (FTA-ABS) HIV-1 RNA PCR copies/ml HIV-1 RNA (PCR) log Miscellaneous Test 09/11/18 09/13/18 09/13/18 19:01 04:28 07:31 WBC 2.0 L RBC Hgb Hct RDW Plt Count 116 L Seg Neuts % (Manual) Lymphocytes % (Manual) Monocytes % (Manual) 8.0 H Eosinophils % (Manual) Basophils % (Manual) Nucleated RBC % Seg Neutrophils # Man 1.0 L Abs Lymphs (Manual) Lymphocytes # (Manual) 0.5 L PT INR APTT Heparin Anti-Xa Level POC ABG pH POC ABG pCO2 POC ABG pO2 Sodium Potassium Chloride 110.4 H Carbon Dioxide 19 L BUN Creatinine Glucose POC Glucose Lactic Acid 3.70 H* Calcium 7.9 L Phosphorus Magnesium Iron TIBC Ferritin AST ALT Total Creatine Kinase Total Protein Albumin Vitamin B12 Folate TSH Free T4 CSF VDRL Lymph Enumerat CD4/CD8 Absolute CD3 Count % CD4 Cells Absolute CD4 Count % CD8 Cells Absolute CD19 Count T.pallidum Ab (FTA-ABS) HIV-1 RNA PCR copies/ml HIV-1 RNA (PCR) log Miscellaneous Test 09/13/18 09/13/18 09/13/18 07:31 12:29 12:29 WBC RBC Hgb Hct RDW Plt Count Seg Neuts % (Manual) Lymphocytes % (Manual) Monocytes % (Manual) Eosinophils % (Manual) Basophils % (Manual) Nucleated RBC % Seg Neutrophils # Man Abs Lymphs (Manual) 309 L Lymphocytes # (Manual) PT INR APTT Heparin Anti-Xa Level POC ABG pH POC ABG pCO2 POC ABG pO2 Sodium Potassium Chloride Carbon Dioxide BUN Creatinine Glucose POC Glucose Lactic Acid Calcium Phosphorus Magnesium Iron TIBC Ferritin AST 70 H ALT 68 H Total Creatine Kinase Total Protein Albumin 2.5 L Vitamin B12 Folate TSH Free T4 CSF VDRL Lymph Enumerat CD4/CD8 0.01 L Absolute CD3 Count 220 L % CD4 Cells 1 L Absolute CD4 Count 4 L % CD8 Cells 70 H Absolute CD19 Count 54 L T.pallidum Ab (FTA-ABS) HIV-1 RNA PCR copies/ml 02641 H HIV-1 RNA (PCR) log 4.71 H Miscellaneous Test 09/13/18 09/14/18 09/14/18 12:29 07:17 16:34 WBC RBC Hgb Hct RDW Plt Count Seg Neuts % (Manual) Lymphocytes % (Manual) Monocytes % (Manual) Eosinophils % (Manual) Basophils % (Manual) Nucleated RBC % Seg Neutrophils # Man Abs Lymphs (Manual) Lymphocytes # (Manual) PT INR APTT Heparin Anti-Xa Level POC ABG pH POC ABG pCO2 POC ABG pO2 Sodium Potassium 3.4 L Chloride Carbon Dioxide 18 L BUN Creatinine Glucose 104 H POC Glucose Lactic Acid Calcium 7.6 L Phosphorus Magnesium Iron TIBC Ferritin AST 49 H ALT Total Creatine Kinase Total Protein Albumin 2.5 L Vitamin B12 Folate TSH Free T4 CSF VDRL Lymph Enumerat CD4/CD8 Absolute CD3 Count % CD4 Cells Absolute CD4 Count % CD8 Cells Absolute CD19 Count T.pallidum Ab (FTA-ABS) Reactive H HIV-1 RNA PCR copies/ml HIV-1 RNA (PCR) log Miscellaneous Test Flexitest 1 H 09/15/18 09/15/18 09/15/18 05:05 05:05 Unknown WBC 1.6 L* RBC Hgb 10.4 L Hct 31.1 L D RDW Plt Count 113 L Seg Neuts % (Manual) Lymphocytes % (Manual) Monocytes % (Manual) Eosinophils % (Manual) Basophils % (Manual) Nucleated RBC % Seg Neutrophils # Man Abs Lymphs (Manual) Lymphocytes # (Manual) PT INR APTT Heparin Anti-Xa Level POC ABG pH POC ABG pCO2 POC ABG pO2 Sodium Potassium Chloride 107.9 H Carbon Dioxide 18 L BUN 6 L Creatinine Glucose POC Glucose Lactic Acid Calcium 7.4 L Phosphorus Magnesium Iron TIBC Ferritin AST ALT Total Creatine Kinase Total Protein Albumin Vitamin B12 Folate TSH Free T4 CSF VDRL Reactive 1:8 H Lymph Enumerat CD4/CD8 Absolute CD3 Count % CD4 Cells Absolute CD4 Count % CD8 Cells Absolute CD19 Count T.pallidum Ab (FTA-ABS) HIV-1 RNA PCR copies/ml HIV-1 RNA (PCR) log Miscellaneous Test 09/16/18 09/16/18 09/16/18 06:55 11:41 11:41 WBC 2.8 L RBC Hgb 10.9 L Hct 33.5 L RDW Plt Count 135 L Seg Neuts % (Manual) Lymphocytes % (Manual) Monocytes % (Manual) Eosinophils % (Manual) Basophils % (Manual) Nucleated RBC % Seg Neutrophils # Man Abs Lymphs (Manual) Lymphocytes # (Manual) PT INR APTT Heparin Anti-Xa Level POC ABG pH POC ABG pCO2 POC ABG pO2 Sodium Potassium Chloride Carbon Dioxide BUN Creatinine Glucose POC Glucose Lactic Acid Calcium Phosphorus Magnesium Iron TIBC Ferritin AST ALT Total Creatine Kinase Total Protein Albumin Vitamin B12 Folate TSH 4.210 H Free T4 0.72 L CSF VDRL Lymph Enumerat CD4/CD8 Absolute CD3 Count % CD4 Cells Absolute CD4 Count % CD8 Cells Absolute CD19 Count T.pallidum Ab (FTA-ABS) HIV-1 RNA PCR copies/ml HIV-1 RNA (PCR) log Miscellaneous Test 09/16/18 09/16/18 09/17/18 11:41 15:43 05:13 WBC 2.0 L RBC Hgb 10.9 L Hct 32.7 L RDW Plt Count Seg Neuts % (Manual) Lymphocytes % (Manual) Monocytes % (Manual) Eosinophils % (Manual) Basophils % (Manual) Nucleated RBC % Seg Neutrophils # Man Abs Lymphs (Manual) Lymphocytes # (Manual) PT INR APTT Heparin Anti-Xa Level POC ABG pH POC ABG pCO2 29.3 L POC ABG pO2 70 L Sodium Potassium Chloride Carbon Dioxide BUN Creatinine Glucose POC Glucose Lactic Acid Calcium Phosphorus Magnesium Iron TIBC Ferritin AST ALT Total Creatine Kinase Total Protein Albumin Vitamin B12 934.5 H Folate TSH Free T4 CSF VDRL Lymph Enumerat CD4/CD8 Absolute CD3 Count % CD4 Cells Absolute CD4 Count % CD8 Cells Absolute CD19 Count T.pallidum Ab (FTA-ABS) HIV-1 RNA PCR copies/ml HIV-1 RNA (PCR) log Miscellaneous Test 09/17/18 09/17/18 09/18/18 05:13 21:57 12:46 WBC RBC Hgb Hct RDW Plt Count Seg Neuts % (Manual) Lymphocytes % (Manual) Monocytes % (Manual) Eosinophils % (Manual) Basophils % (Manual) Nucleated RBC % Seg Neutrophils # Man Abs Lymphs (Manual) Lymphocytes # (Manual) PT INR APTT Heparin Anti-Xa Level POC ABG pH POC ABG pCO2 POC ABG pO2 Sodium Potassium Chloride 107.2 H Carbon Dioxide 21 L BUN 3 L Creatinine 0.7 L Glucose POC Glucose 108 H Lactic Acid Calcium 7.9 L Phosphorus Magnesium Iron TIBC Ferritin AST ALT Total Creatine Kinase Total Protein 6.1 L Albumin 2.6 L Vitamin B12 Folate TSH Free T4 0.75 L CSF VDRL Lymph Enumerat CD4/CD8 Absolute CD3 Count % CD4 Cells Absolute CD4 Count % CD8 Cells Absolute CD19 Count T.pallidum Ab (FTA-ABS) HIV-1 RNA PCR copies/ml HIV-1 RNA (PCR) log Miscellaneous Test 09/18/18 09/19/18 09/19/18 12:46 04:57 04:57 WBC 2.1 L RBC Hgb 11.4 L Hct 34.2 L RDW Plt Count Seg Neuts % (Manual) Lymphocytes % (Manual) Monocytes % (Manual) Eosinophils % (Manual) Basophils % (Manual) Nucleated RBC % Seg Neutrophils # Man Abs Lymphs (Manual) Lymphocytes # (Manual) PT INR APTT Heparin Anti-Xa Level POC ABG pH POC ABG pCO2 POC ABG pO2 Sodium Potassium Chloride Carbon Dioxide 19 L BUN 6 L Creatinine Glucose POC Glucose Lactic Acid Calcium 7.9 L Phosphorus Magnesium Iron TIBC Ferritin AST ALT Total Creatine Kinase Total Protein Albumin Vitamin B12 Folate TSH 5.190 H Free T4 CSF VDRL Lymph Enumerat CD4/CD8 Absolute CD3 Count % CD4 Cells Absolute CD4 Count % CD8 Cells Absolute CD19 Count T.pallidum Ab (FTA-ABS) HIV-1 RNA PCR copies/ml HIV-1 RNA (PCR) log Miscellaneous Test 09/19/18 09/19/18 09/20/18 15:00 15:00 05:33 WBC RBC Hgb Hct RDW Plt Count Seg Neuts % (Manual) Lymphocytes % (Manual) Monocytes % (Manual) Eosinophils % (Manual) Basophils % (Manual) Nucleated RBC % Seg Neutrophils # Man Abs Lymphs (Manual) Lymphocytes # (Manual) PT INR APTT Heparin Anti-Xa Level POC ABG pH POC ABG pCO2 POC ABG pO2 Sodium 136 L Potassium Chloride Carbon Dioxide 19 L BUN 7 L Creatinine Glucose POC Glucose Lactic Acid Calcium Phosphorus Magnesium Iron TIBC Ferritin AST ALT Total Creatine Kinase Total Protein Albumin Vitamin B12 Folate TSH Free T4 CSF VDRL Reactive 1:4 H Lymph Enumerat CD4/CD8 Absolute CD3 Count % CD4 Cells Absolute CD4 Count % CD8 Cells Absolute CD19 Count T.pallidum Ab (FTA-ABS) HIV-1 RNA PCR copies/ml HIV-1 RNA (PCR) log Miscellaneous Test Flexitest 1 H 09/20/18 09/21/18 09/21/18 06:52 01:06 03:49 WBC 2.5 L RBC Hgb Hct RDW Plt Count Seg Neuts % (Manual) Lymphocytes % (Manual) Monocytes % (Manual) Eosinophils % (Manual) Basophils % (Manual) Nucleated RBC % Seg Neutrophils # Man Abs Lymphs (Manual) Lymphocytes # (Manual) PT INR APTT Heparin Anti-Xa Level POC ABG pH 7.159 L POC ABG pCO2 32.9 L 70.0 H POC ABG pO2 62 L 254 H Sodium Potassium Chloride Carbon Dioxide BUN Creatinine Glucose POC Glucose Lactic Acid Calcium Phosphorus Magnesium Iron TIBC Ferritin AST ALT Total Creatine Kinase Total Protein Albumin Vitamin B12 Folate TSH Free T4 CSF VDRL Lymph Enumerat CD4/CD8 Absolute CD3 Count % CD4 Cells Absolute CD4 Count % CD8 Cells Absolute CD19 Count T.pallidum Ab (FTA-ABS) HIV-1 RNA PCR copies/ml HIV-1 RNA (PCR) log Miscellaneous Test 09/21/18 09/21/18 09/21/18 04:15 04:15 04:25 WBC 3.1 L RBC Hgb 11.6 L Hct RDW Plt Count Seg Neuts % (Manual) Lymphocytes % (Manual) Monocytes % (Manual) 12.0 H Eosinophils % (Manual) Basophils % (Manual) Nucleated RBC % Seg Neutrophils # Man 1.6 L Abs Lymphs (Manual) Lymphocytes # (Manual) 0.5 L PT INR APTT Heparin Anti-Xa Level POC ABG pH POC ABG pCO2 POC ABG pO2 Sodium Potassium 6.1 H* D Chloride Carbon Dioxide 19 L BUN Creatinine Glucose 108 H POC Glucose Lactic Acid Calcium Phosphorus Magnesium Iron TIBC Ferritin AST ALT Total Creatine Kinase 685 H Total Protein Albumin Vitamin B12 Folate TSH Free T4 CSF VDRL Lymph Enumerat CD4/CD8 Absolute CD3 Count % CD4 Cells Absolute CD4 Count % CD8 Cells Absolute CD19 Count T.pallidum Ab (FTA-ABS) HIV-1 RNA PCR copies/ml HIV-1 RNA (PCR) log Miscellaneous Test 09/21/18 09/21/18 09/21/18 09:59 10:07 11:00 WBC RBC Hgb 11.7 L Hct RDW Plt Count Seg Neuts % (Manual) Lymphocytes % (Manual) Monocytes % (Manual) Eosinophils % (Manual) Basophils % (Manual) Nucleated RBC % Seg Neutrophils # Man Abs Lymphs (Manual) Lymphocytes # (Manual) PT INR APTT Heparin Anti-Xa Level POC ABG pH 7.301 L POC ABG pCO2 POC ABG pO2 109 H Sodium Potassium 6.5 H* Chloride Carbon Dioxide 18 L BUN Creatinine 2.1 H D Glucose POC Glucose Lactic Acid Calcium 8.1 L Phosphorus Magnesium Iron TIBC Ferritin AST 94 H ALT Total Creatine Kinase Total Protein Albumin 2.8 L Vitamin B12 Folate TSH Free T4 CSF VDRL Lymph Enumerat CD4/CD8 Absolute CD3 Count % CD4 Cells Absolute CD4 Count % CD8 Cells Absolute CD19 Count T.pallidum Ab (FTA-ABS) HIV-1 RNA PCR copies/ml HIV-1 RNA (PCR) log Miscellaneous Test 09/21/18 09/21/18 09/21/18 15:00 21:54 21:54 WBC RBC Hgb Hct RDW Plt Count Seg Neuts % (Manual) Lymphocytes % (Manual) Monocytes % (Manual) Eosinophils % (Manual) Basophils % (Manual) Nucleated RBC % Seg Neutrophils # Man Abs Lymphs (Manual) Lymphocytes # (Manual) PT 19.9 H INR 1.65 H APTT 40.9 H Heparin Anti-Xa Level 0.98 H POC ABG pH POC ABG pCO2 POC ABG pO2 Sodium Potassium 5.2 H Chloride Carbon Dioxide BUN Creatinine Glucose POC Glucose Lactic Acid Calcium Phosphorus Magnesium Iron TIBC Ferritin AST ALT Total Creatine Kinase Total Protein Albumin Vitamin B12 Folate TSH Free T4 CSF VDRL Lymph Enumerat CD4/CD8 Absolute CD3 Count % CD4 Cells Absolute CD4 Count % CD8 Cells Absolute CD19 Count T.pallidum Ab (FTA-ABS) HIV-1 RNA PCR copies/ml HIV-1 RNA (PCR) log Miscellaneous Test 09/21/18 09/22/18 09/22/18 22:57 03:01 05:27 WBC RBC Hgb Hct RDW Plt Count Seg Neuts % (Manual) Lymphocytes % (Manual) Monocytes % (Manual) Eosinophils % (Manual) Basophils % (Manual) Nucleated RBC % Seg Neutrophils # Man Abs Lymphs (Manual) Lymphocytes # (Manual) PT INR APTT Heparin Anti-Xa Level POC ABG pH POC ABG pCO2 32.7 L POC ABG pO2 Sodium Potassium Chloride Carbon Dioxide BUN Creatinine Glucose POC Glucose 124 H 128 H Lactic Acid Calcium Phosphorus Magnesium Iron TIBC Ferritin AST ALT Total Creatine Kinase Total Protein Albumin Vitamin B12 Folate TSH Free T4 CSF VDRL Lymph Enumerat CD4/CD8 Absolute CD3 Count % CD4 Cells Absolute CD4 Count % CD8 Cells Absolute CD19 Count T.pallidum Ab (FTA-ABS) HIV-1 RNA PCR copies/ml HIV-1 RNA (PCR) log Miscellaneous Test 09/22/18 09/22/18 09/22/18 07:00 07:00 11:32 WBC 1.8 L* RBC 3.59 L Hgb 10.1 L Hct 30.8 L RDW Plt Count 126 L Seg Neuts % (Manual) Lymphocytes % (Manual) Monocytes % (Manual) Eosinophils % (Manual) Basophils % (Manual) Nucleated RBC % Seg Neutrophils # Man Abs Lymphs (Manual) Lymphocytes # (Manual) PT INR APTT Heparin Anti-Xa Level POC ABG pH POC ABG pCO2 POC ABG pO2 Sodium Potassium Chloride Carbon Dioxide BUN 27 H Creatinine 2.0 H Glucose 128 H POC Glucose 123 H Lactic Acid Calcium 6.9 L Phosphorus Magnesium Iron TIBC Ferritin AST ALT Total Creatine Kinase Total Protein Albumin Vitamin B12 Folate TSH Free T4 CSF VDRL Lymph Enumerat CD4/CD8 Absolute CD3 Count % CD4 Cells Absolute CD4 Count % CD8 Cells Absolute CD19 Count T.pallidum Ab (FTA-ABS) HIV-1 RNA PCR copies/ml HIV-1 RNA (PCR) log Miscellaneous Test 09/22/18 09/22/18 09/22/18 15:52 18:18 23:52 WBC RBC Hgb Hct RDW Plt Count Seg Neuts % (Manual) Lymphocytes % (Manual) Monocytes % (Manual) Eosinophils % (Manual) Basophils % (Manual) Nucleated RBC % Seg Neutrophils # Man Abs Lymphs (Manual) Lymphocytes # (Manual) PT INR APTT Heparin Anti-Xa Level POC ABG pH POC ABG pCO2 48.7 H POC ABG pO2 Sodium Potassium Chloride Carbon Dioxide BUN Creatinine Glucose POC Glucose 110 H 124 H Lactic Acid Calcium Phosphorus Magnesium Iron TIBC Ferritin AST ALT Total Creatine Kinase Total Protein Albumin Vitamin B12 Folate TSH Free T4 CSF VDRL Lymph Enumerat CD4/CD8 Absolute CD3 Count % CD4 Cells Absolute CD4 Count % CD8 Cells Absolute CD19 Count T.pallidum Ab (FTA-ABS) HIV-1 RNA PCR copies/ml HIV-1 RNA (PCR) log Miscellaneous Test 09/23/18 09/23/18 09/23/18 04:10 05:55 05:55 WBC RBC Hgb 10.0 L Hct 30.3 L RDW Plt Count 117 L Seg Neuts % (Manual) Lymphocytes % (Manual) Monocytes % (Manual) Eosinophils % (Manual) Basophils % (Manual) Nucleated RBC % Seg Neutrophils # Man Abs Lymphs (Manual) Lymphocytes # (Manual) PT INR APTT Heparin Anti-Xa Level 0.26 L POC ABG pH POC ABG pCO2 POC ABG pO2 144 H Sodium Potassium Chloride Carbon Dioxide BUN Creatinine Glucose POC Glucose Lactic Acid Calcium Phosphorus Magnesium Iron TIBC Ferritin AST ALT Total Creatine Kinase Total Protein Albumin Vitamin B12 Folate TSH Free T4 CSF VDRL Lymph Enumerat CD4/CD8 Absolute CD3 Count % CD4 Cells Absolute CD4 Count % CD8 Cells Absolute CD19 Count T.pallidum Ab (FTA-ABS) HIV-1 RNA PCR copies/ml HIV-1 RNA (PCR) log Miscellaneous Test 09/23/18 09/23/18 09/23/18 08:10 08:10 23:57 WBC 1.3 L* RBC 3.53 L Hgb 9.9 L Hct 30.0 L RDW Plt Count 119 L Seg Neuts % (Manual) Lymphocytes % (Manual) Monocytes % (Manual) Eosinophils % (Manual) Basophils % (Manual) Nucleated RBC % Seg Neutrophils # Man Abs Lymphs (Manual) Lymphocytes # (Manual) PT INR APTT Heparin Anti-Xa Level POC ABG pH POC ABG pCO2 POC ABG pO2 Sodium Potassium Chloride Carbon Dioxide BUN Creatinine Glucose 122 H POC Glucose 115 H Lactic Acid Calcium 6.9 L Phosphorus Magnesium Iron TIBC Ferritin AST ALT Total Creatine Kinase Total Protein Albumin Vitamin B12 Folate TSH Free T4 CSF VDRL Lymph Enumerat CD4/CD8 Absolute CD3 Count % CD4 Cells Absolute CD4 Count % CD8 Cells Absolute CD19 Count T.pallidum Ab (FTA-ABS) HIV-1 RNA PCR copies/ml HIV-1 RNA (PCR) log Miscellaneous Test 09/24/18 09/24/18 09/24/18 12:04 14:42 18:10 WBC RBC Hgb Hct RDW Plt Count Seg Neuts % (Manual) Lymphocytes % (Manual) Monocytes % (Manual) Eosinophils % (Manual) Basophils % (Manual) Nucleated RBC % Seg Neutrophils # Man Abs Lymphs (Manual) Lymphocytes # (Manual) PT INR APTT Heparin Anti-Xa Level 0.76 H POC ABG pH POC ABG pCO2 POC ABG pO2 Sodium Potassium Chloride Carbon Dioxide BUN Creatinine Glucose POC Glucose 111 H 138 H Lactic Acid Calcium Phosphorus Magnesium Iron TIBC Ferritin AST ALT Total Creatine Kinase Total Protein Albumin Vitamin B12 Folate TSH Free T4 CSF VDRL Lymph Enumerat CD4/CD8 Absolute CD3 Count % CD4 Cells Absolute CD4 Count % CD8 Cells Absolute CD19 Count T.pallidum Ab (FTA-ABS) HIV-1 RNA PCR copies/ml HIV-1 RNA (PCR) log Miscellaneous Test 09/25/18 09/25/18 09/25/18 03:45 04:24 14:20 WBC RBC Hgb 9.7 L Hct 29.4 L RDW Plt Count 104 L Seg Neuts % (Manual) Lymphocytes % (Manual) Monocytes % (Manual) Eosinophils % (Manual) Basophils % (Manual) Nucleated RBC % Seg Neutrophils # Man Abs Lymphs (Manual) Lymphocytes # (Manual) PT INR APTT Heparin Anti-Xa Level POC ABG pH 7.460 H POC ABG pCO2 32.9 L POC ABG pO2 Sodium Potassium 3.5 L Chloride 110.3 H Carbon Dioxide BUN Creatinine Glucose 105 H POC Glucose Lactic Acid Calcium 6.7 L Phosphorus Magnesium Iron TIBC Ferritin AST 633 H ALT 481 H Total Creatine Kinase Total Protein 4.8 L D Albumin 1.9 L Vitamin B12 Folate TSH Free T4 CSF VDRL Lymph Enumerat CD4/CD8 Absolute CD3 Count % CD4 Cells Absolute CD4 Count % CD8 Cells Absolute CD19 Count T.pallidum Ab (FTA-ABS) HIV-1 RNA PCR copies/ml HIV-1 RNA (PCR) log Miscellaneous Test 09/26/18 09/26/18 09/26/18 06:15 06:15 10:43 WBC 1.2 L* RBC 3.32 L Hgb 9.2 L Hct 28.6 L RDW Plt Count 97 L Seg Neuts % (Manual) 24.0 L Lymphocytes % (Manual) 43.0 H Monocytes % (Manual) 19.0 H Eosinophils % (Manual) 8.0 H Basophils % (Manual) 2.0 H Nucleated RBC % 3.0 H Seg Neutrophils # Man 0.0 L Abs Lymphs (Manual) Lymphocytes # (Manual) 0.0 L PT INR APTT Heparin Anti-Xa Level POC ABG pH 7.459 H POC ABG pCO2 POC ABG pO2 141 H Sodium Potassium Chloride 112.8 H Carbon Dioxide BUN Creatinine Glucose 110 H POC Glucose Lactic Acid Calcium 7.0 L Phosphorus 0.90 L* Magnesium Iron TIBC Ferritin AST 362 H ALT 360 H Total Creatine Kinase Total Protein 4.9 L Albumin 1.5 L Vitamin B12 Folate TSH Free T4 CSF VDRL Lymph Enumerat CD4/CD8 Absolute CD3 Count % CD4 Cells Absolute CD4 Count % CD8 Cells Absolute CD19 Count T.pallidum Ab (FTA-ABS) HIV-1 RNA PCR copies/ml HIV-1 RNA (PCR) log Miscellaneous Test 09/26/18 09/27/18 09/28/18 13:56 04:11 07:49 WBC RBC Hgb 9.1 L Hct 29.1 L RDW Plt Count 96 L Seg Neuts % (Manual) Lymphocytes % (Manual) Monocytes % (Manual) Eosinophils % (Manual) Basophils % (Manual) Nucleated RBC % Seg Neutrophils # Man Abs Lymphs (Manual) Lymphocytes # (Manual) PT INR APTT Heparin Anti-Xa Level POC ABG pH POC ABG pCO2 POC ABG pO2 Sodium 146 H Potassium Chloride 111.6 H Carbon Dioxide BUN Creatinine Glucose POC Glucose 135 H Lactic Acid Calcium 7.4 L Phosphorus Magnesium Iron TIBC Ferritin AST ALT Total Creatine Kinase Total Protein Albumin Vitamin B12 Folate TSH Free T4 CSF VDRL Lymph Enumerat CD4/CD8 Absolute CD3 Count % CD4 Cells Absolute CD4 Count % CD8 Cells Absolute CD19 Count T.pallidum Ab (FTA-ABS) HIV-1 RNA PCR copies/ml HIV-1 RNA (PCR) log Miscellaneous Test 09/28/18 09/29/18 09/29/18 10:43 05:00 05:00 WBC 1.2 L* RBC 3.13 L Hgb 8.6 L Hct 27.3 L RDW Plt Count 137 L Seg Neuts % (Manual) Lymphocytes % (Manual) Monocytes % (Manual) 16.0 H Eosinophils % (Manual) Basophils % (Manual) Nucleated RBC % 4.0 H Seg Neutrophils # Man 0.5 L Abs Lymphs (Manual) Lymphocytes # (Manual) 0.3 L PT INR APTT Heparin Anti-Xa Level POC ABG pH 7.300 L POC ABG pCO2 53.9 H POC ABG pO2 Sodium 147 H Potassium 3.4 L Chloride 114.5 H Carbon Dioxide BUN Creatinine Glucose POC Glucose Lactic Acid Calcium 7.7 L Phosphorus Magnesium Iron TIBC Ferritin AST 69 H ALT 110 H Total Creatine Kinase Total Protein 5.2 L Albumin 1.9 L Vitamin B12 Folate TSH Free T4 CSF VDRL Lymph Enumerat CD4/CD8 Absolute CD3 Count % CD4 Cells Absolute CD4 Count % CD8 Cells Absolute CD19 Count T.pallidum Ab (FTA-ABS) HIV-1 RNA PCR copies/ml HIV-1 RNA (PCR) log Miscellaneous Test 09/29/18 09/29/18 09/30/18 06:07 13:22 05:19 WBC 0.9 L* RBC 3.03 L Hgb 8.6 L Hct 25.9 L RDW Plt Count Seg Neuts % (Manual) Lymphocytes % (Manual) Monocytes % (Manual) Eosinophils % (Manual) Basophils % (Manual) Nucleated RBC % Seg Neutrophils # Man Abs Lymphs (Manual) Lymphocytes # (Manual) PT INR APTT Heparin Anti-Xa Level POC ABG pH POC ABG pCO2 46.9 H POC ABG pO2 Sodium Potassium Chloride Carbon Dioxide BUN Creatinine Glucose POC Glucose 109 H Lactic Acid Calcium Phosphorus Magnesium Iron TIBC Ferritin AST ALT Total Creatine Kinase Total Protein Albumin Vitamin B12 Folate TSH Free T4 CSF VDRL Lymph Enumerat CD4/CD8 Absolute CD3 Count % CD4 Cells Absolute CD4 Count % CD8 Cells Absolute CD19 Count T.pallidum Ab (FTA-ABS) HIV-1 RNA PCR copies/ml HIV-1 RNA (PCR) log Miscellaneous Test 09/30/18 09/30/18 09/30/18 05:19 11:14 23:28 WBC RBC Hgb Hct RDW Plt Count Seg Neuts % (Manual) Lymphocytes % (Manual) Monocytes % (Manual) Eosinophils % (Manual) Basophils % (Manual) Nucleated RBC % Seg Neutrophils # Man Abs Lymphs (Manual) Lymphocytes # (Manual) PT INR APTT Heparin Anti-Xa Level 0.72 H POC ABG pH POC ABG pCO2 46.6 H POC ABG pO2 Sodium 150 H Potassium Chloride 115.2 H Carbon Dioxide BUN Creatinine Glucose POC Glucose Lactic Acid Calcium 7.9 L Phosphorus Magnesium Iron TIBC Ferritin AST ALT Total Creatine Kinase Total Protein Albumin Vitamin B12 Folate TSH Free T4 CSF VDRL Lymph Enumerat CD4/CD8 Absolute CD3 Count % CD4 Cells Absolute CD4 Count % CD8 Cells Absolute CD19 Count T.pallidum Ab (FTA-ABS) HIV-1 RNA PCR copies/ml HIV-1 RNA (PCR) log Miscellaneous Test 10/01/18 10/01/18 10/02/18 04:55 04:55 07:15 WBC 0.9 L* 0.7 L* RBC 3.01 L 2.92 L Hgb 8.4 L 8.4 L Hct 26.0 L 24.9 L RDW Plt Count Seg Neuts % (Manual) Lymphocytes % (Manual) Monocytes % (Manual) Eosinophils % (Manual) Basophils % (Manual) Nucleated RBC % Seg Neutrophils # Man Abs Lymphs (Manual) Lymphocytes # (Manual) PT INR APTT Heparin Anti-Xa Level POC ABG pH POC ABG pCO2 POC ABG pO2 Sodium 147 H Potassium 3.4 L Chloride 113.1 H Carbon Dioxide BUN 22 H Creatinine Glucose POC Glucose Lactic Acid Calcium 7.3 L Phosphorus Magnesium Iron TIBC Ferritin AST ALT Total Creatine Kinase Total Protein Albumin Vitamin B12 Folate TSH Free T4 CSF VDRL Lymph Enumerat CD4/CD8 Absolute CD3 Count % CD4 Cells Absolute CD4 Count % CD8 Cells Absolute CD19 Count T.pallidum Ab (FTA-ABS) HIV-1 RNA PCR copies/ml HIV-1 RNA (PCR) log Miscellaneous Test 10/02/18 10/03/18 10/03/18 07:15 06:12 06:12 WBC 0.8 L* RBC 2.96 L Hgb 8.5 L Hct 25.9 L RDW 15.4 H Plt Count Seg Neuts % (Manual) Lymphocytes % (Manual) Monocytes % (Manual) Eosinophils % (Manual) Basophils % (Manual) Nucleated RBC % Seg Neutrophils # Man Abs Lymphs (Manual) Lymphocytes # (Manual) PT INR APTT Heparin Anti-Xa Level POC ABG pH POC ABG pCO2 POC ABG pO2 Sodium Potassium 3.4 L 3.4 L Chloride 108.3 H Carbon Dioxide BUN Creatinine Glucose POC Glucose Lactic Acid Calcium 7.6 L 7.4 L Phosphorus Magnesium Iron TIBC Ferritin AST ALT Total Creatine Kinase Total Protein Albumin Vitamin B12 Folate TSH Free T4 CSF VDRL Lymph Enumerat CD4/CD8 Absolute CD3 Count % CD4 Cells Absolute CD4 Count % CD8 Cells Absolute CD19 Count T.pallidum Ab (FTA-ABS) HIV-1 RNA PCR copies/ml HIV-1 RNA (PCR) log Miscellaneous Test 10/03/18 10/03/18 10/04/18 11:45 13:23 01:40 WBC RBC Hgb Hct RDW Plt Count Seg Neuts % (Manual) Lymphocytes % (Manual) Monocytes % (Manual) Eosinophils % (Manual) Basophils % (Manual) Nucleated RBC % Seg Neutrophils # Man Abs Lymphs (Manual) Lymphocytes # (Manual) PT INR APTT Heparin Anti-Xa Level 1.34 H 0.26 L POC ABG pH POC ABG pCO2 POC ABG pO2 Sodium Potassium Chloride Carbon Dioxide BUN Creatinine Glucose POC Glucose Lactic Acid Calcium Phosphorus Magnesium 1.40 L Iron TIBC Ferritin AST ALT Total Creatine Kinase Total Protein Albumin Vitamin B12 Folate TSH Free T4 CSF VDRL Lymph Enumerat CD4/CD8 Absolute CD3 Count % CD4 Cells Absolute CD4 Count % CD8 Cells Absolute CD19 Count T.pallidum Ab (FTA-ABS) HIV-1 RNA PCR copies/ml HIV-1 RNA (PCR) log Miscellaneous Test 10/04/18 10/04/18 10/06/18 04:45 04:45 09:40 WBC 0.8 L* RBC 3.11 L Hgb 9.0 L Hct 27.4 L RDW 15.4 H Plt Count Seg Neuts % (Manual) Lymphocytes % (Manual) Monocytes % (Manual) Eosinophils % (Manual) Basophils % (Manual) Nucleated RBC % Seg Neutrophils # Man Abs Lymphs (Manual) Lymphocytes # (Manual) PT INR APTT Heparin Anti-Xa Level POC ABG pH POC ABG pCO2 POC ABG pO2 Sodium Potassium Chloride Carbon Dioxide BUN Creatinine 0.7 L Glucose POC Glucose Lactic Acid Calcium 7.5 L Phosphorus Magnesium Iron 35 L TIBC 157 L Ferritin AST ALT Total Creatine Kinase Total Protein Albumin Vitamin B12 Folate TSH Free T4 CSF VDRL Lymph Enumerat CD4/CD8 Absolute CD3 Count % CD4 Cells Absolute CD4 Count % CD8 Cells Absolute CD19 Count T.pallidum Ab (FTA-ABS) HIV-1 RNA PCR copies/ml HIV-1 RNA (PCR) log Miscellaneous Test 10/06/18 10/06/18 10/07/18 09:40 09:40 04:20 WBC 1.1 L* RBC 3.07 L Hgb 9.1 L Hct 27.3 L RDW 20.3 H Plt Count Seg Neuts % (Manual) Lymphocytes % (Manual) Monocytes % (Manual) Eosinophils % (Manual) Basophils % (Manual) Nucleated RBC % Seg Neutrophils # Man 0.7 L Abs Lymphs (Manual) Lymphocytes # (Manual) 0.3 L PT INR APTT Heparin Anti-Xa Level POC ABG pH POC ABG pCO2 POC ABG pO2 Sodium Potassium Chloride Carbon Dioxide BUN Creatinine Glucose POC Glucose Lactic Acid Calcium Phosphorus Magnesium Iron TIBC Ferritin 1126.0 H AST ALT Total Creatine Kinase Total Protein Albumin Vitamin B12 Folate 6.71 L TSH Free T4 CSF VDRL Lymph Enumerat CD4/CD8 Absolute CD3 Count % CD4 Cells Absolute CD4 Count % CD8 Cells Absolute CD19 Count T.pallidum Ab (FTA-ABS) HIV-1 RNA PCR copies/ml HIV-1 RNA (PCR) log Miscellaneous Test 10/07/18 10/07/18 04:20 15:38 WBC RBC Hgb Hct RDW Plt Count Seg Neuts % (Manual) Lymphocytes % (Manual) Monocytes % (Manual) Eosinophils % (Manual) Basophils % (Manual) Nucleated RBC % Seg Neutrophils # Man Abs Lymphs (Manual) Lymphocytes # (Manual) PT INR APTT Heparin Anti-Xa Level POC ABG pH 7.516 H POC ABG pCO2 32.1 L POC ABG pO2 Sodium Potassium Chloride Carbon Dioxide BUN Creatinine 0.7 L Glucose POC Glucose Lactic Acid Calcium 7.9 L Phosphorus Magnesium Iron TIBC Ferritin AST ALT Total Creatine Kinase Total Protein 5.5 L Albumin 2.2 L Vitamin B12 Folate TSH Free T4 CSF VDRL Lymph Enumerat CD4/CD8 Absolute CD3 Count % CD4 Cells Absolute CD4 Count % CD8 Cells Absolute CD19 Count T.pallidum Ab (FTA-ABS) HIV-1 RNA PCR copies/ml HIV-1 RNA (PCR) log Miscellaneous Test Allied health notes reviewed: RT
[2018-10-09] MEDS: ROBINUL PO SCH ×4 (01:18→19:09)
[2018-10-09] MEDS: CYTOVENE 500 MG in NACL 0.9% 250ML 250 ML IV SCH ×2 (01:18→13:05)
[2018-10-09] MEDS: PROVENTIL IH SCH ×4 (02:03→19:08)
[2018-10-09] MEDS: LOPRESSOR IV SCH ×4 (02:18→21:27)
[2018-10-09] MEDS: HEPARIN SUB-Q SCH ×3 (05:49→21:27)
[2018-10-09] MEDS: SYNTHROID PO SCH (05:49)
[2018-10-09 06:10] LABS: Hematocrit 30.1 % (35.5-45.6); Hemoglobin 9.9 gm/dl (11.8-15.2); Mean Corpuscular HGB Conc 33 % (32-34); Mean Corpuscular Volume 90 fl (84-94); Platelet Count 267 K/mm3 (140-440); Red Blood Count 3.35 M/mm3 (3.65-5.03)
[2018-10-09 06:17] LABS: Red Cell Distribution Width 21.4 % (13.2-15.2)
[2018-10-09 06:35] LABS: Calcium 8.3 mg/dL (8.4-10.2)
--- NOTE | 2018-10-09 07:39 | Hem/Onc Progress Note ---
Assessment and Plan 1. Leukopenia. ANC is 0.5. Neutropenic precaution is practical. 2. Anemia. We will investigate. 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 HAART has been started. At this time, there is no fever. 3. Human immunodeficiency virus, on HAART. 4. 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 5. Intubated. 6. On antibiotics for pneumonia. 7. History of ____ that is improved. 8. Looks at you, but does not communicate. 9. History of oral candidiasis. 10. Mention of giardiasis. 11. Encephalopathy. 12. RVR with atrial fibrillation. I will follow the patient during inpatient stay. At this time, his cytopenia is likely secondary to the HIV or the CMV. I will discuss with ID team to see if G-CSF support is an option. 10/07 - d/w ID - reg GCSF ANC improving 0.7 today - will watch low folate - replace 10/09 - moving rt arm - GCSF trial for 2 days - Patient Problems (1) Neutropenia Current Visit: Yes Status: Acute Subjective Date of service: 10/09/18 Principal diagnosis: low wbc Interval history: moving rt arm Objective - Exam Narrative Exam: on vent - opens eye - non communicative-rt arm moving - Constitutional Vitals: Last Vital Signs Temp 100.3 F H 10/09/18 03:32 Pulse 117 H 10/09/18 06:00 Resp 24 10/09/18 06:00 BP 149/77 10/09/18 06:00 Pulse Ox 99 10/09/18 06:00 General appearance: no acute distress Performance status: 4-completely disabled - EENT ENT: other (intubated) Lymph node exam: negative cervical - Respiratory Respiratory: bilateral: diminished - Cardiovascular Heart Sounds: Present: S1 & S2 Extremity abnormal: edema - Gastrointestinal General gastrointestinal: Present: soft Rectal Exam: deferred - Genitourinary Male genitourinary: Present: deferred - Integumentary Integumentary: warm - Musculoskeletal Musculoskeletal: generalized weakness - Neurologic Neurologic: other (rt arm moving - eyes open) - Labs Lab Results: Laboratory Results - last 24 hr 10/08/18 10/08/18 10/08/18 11:48 17:41 23:18 WBC RBC Hgb Hct MCV MCH MCHC RDW Plt Count Baso % (Auto) Seg Neutrophils % Sodium Potassium Chloride Carbon Dioxide Anion Gap BUN Creatinine Estimated GFR BUN/Creatinine Ratio Glucose POC Glucose 98 92 84 Calcium 10/09/18 10/09/18 10/09/18 04:20 04:20 05:17 WBC 1.1 L* RBC 3.35 L Hgb 9.9 L Hct 30.1 L MCV 90 MCH 30 MCHC 33 RDW 21.4 H Plt Count 267 Baso % (Auto) Debt Recovery Officer Seg Neutrophils % Debt Recovery Officer Sodium 142 Potassium 5.0 D Chloride 103.4 Carbon Dioxide 22 Anion Gap 22 BUN 55 H Creatinine 3.8 H D Estimated GFR 22 BUN/Creatinine Ratio 14 Glucose 89 POC Glucose 99 Calcium 8.3 L Medications & Allergies - Medications Allergies/Adverse Reactions: Allergies No Known Allergies Allergy (Unverified 09/11/18 17:50) Home Medications: Home Medications Medication Instructions Recorded Confirmed Last Taken Type No Known Home Medications [No 10/02/18 10/02/18 Unknown History Reported Home Medications] Active Medications: Generic Name Dose Route Start Last Admin Trade Name Harpreet PRN Reason Stop Dose Admin Acetaminophen 650 mg 09/11/18 19:30 10/05/18 14:48 Tylenol PO 650 mg Q4H PRN Administration Pain MILD(1-3)/Fever >100.5/RIVERA Acetaminophen 650 mg 09/21/18 07:39 10/07/18 21:15 Tylenol [place] 650 mg Q4H PRN Administration Fever >101 Albuterol 2.5 mg 09/11/18 19:30 09/16/18 06:09 Proventil IH 2.5 mg Q4HRT PRN Administration Shortness Of Breath Albuterol 2.5 mg 09/20/18 20:00 10/09/18 02:03 Proventil IH 2.5 mg Q6HRT GIA Administration Amiodarone HCl 200 mg 09/27/18 15:00 10/08/18 21:34 Cordarone PO 200 mg BID GIA Administration Lipase/Protease/Amylase 1 each 09/30/18 12:01 Abril Gibbs 10,500 Unit FEEDTUBE PRN PRN For Clogged Feeding Tube Atovaquone 750 mg 09/21/18 10:00 10/08/18 21:33 Mepron PO 750 mg BID GIA Administration Azithromycin 1,200 mg 09/25/18 10:00 10/02/18 09:00 Zithromax PO 1,200 mg Walters GIA Administration Emtricitabine 200 mg 09/30/18 11:30 10/08/18 09:56 Emtriva PO 200 mg QDAY GIA Administration Famotidine 20 mg 09/24/18 10:00 10/08/18 21:34 Pepcid PO 20 mg BID GIA Administration Fluconazole 200 mg 10/05/18 12:00 10/08/18 10:00 Diflucan PO 200 mg QDAY GIA Administration Folic Acid 1 mg 10/07/18 10:00 10/08/18 09:55 Folvite PO 1 mg QDAY GIA Administration Glycopyrrolate 2 mg 10/07/18 18:00 10/09/18 05:49 Robinul PO 2 mg Q6HR GIA Administration Heparin Sodium (Porcine) 5,000 unit 10/05/18 14:00 10/09/18 05:49 Heparin SUB-Q 5,000 unit Q8HR GIA Administration Hydrophilic Ointment 1 applic 09/21/18 01:46 09/22/18 03:46 Vaseline Lip Therapy TP 1 applic Q2HR PRN Administration Dry Lips Ganciclovir Sodium 500 mg/ 250 mls @ 100 mls/hr 09/23/18 13:00 10/09/18 01:18 Sodium Chloride IV 100 mls/hr Q12H GIA Administration Levothyroxine Sodium 25 mcg 09/19/18 06:00 10/09/18 05:49 Synthroid PO 25 mcg DAILY@0600 GAI Administration Metoprolol Tartrate 5 mg 09/21/18 03:00 10/09/18 02:18 Lopressor IV 5 mg Q6H GIA Administration Multi-Ingred Cream/Lotion/Oil/Oint 1 applic 09/21/18 01:46 Artificial Tears Ophth Oint OU Q4HR PRN Dry Eye(s) Ondansetron HCl 4 mg 09/11/18 19:30 Zofran IV Q8H PRN Nausea And Vomiting Scopolamine 1 each 09/18/18 18:00 10/06/18 19:01 Transderm-Scop TD 1 each Q3D GIA Administration Simple Syrup 15 ml 09/30/18 12:01 10/07/18 06:18 Simple Syrup FEEDTUBE 15 ml PRN PRN Administration Hypoglycemia Simple Syrup 30 ml 09/30/18 12:01 Simple Syrup FEEDTUBE PRN PRN Hypoglycemia Sodium Bicarbonate 325 mg 09/30/18 12:01 Sodium Bicarbonate FEEDTUBE PRN PRN For Clogged Feeding Tube Sodium Chloride 10 ml 09/11/18 22:00 10/08/18 21:35 Sodium Chloride Flush Syringe 10 Ml IV 10 ml BID GIA Administration Sodium Chloride 10 ml 09/11/18 19:30 Sodium Chloride Flush Syringe 10 Ml IV PRN PRN LINE FLUSH Tenofovir Disoproxil Fumarate 300 mg 09/30/18 11:30 10/08/18 09:56 Viread PO 300 mg QDAY GIA Administration
[2018-10-09] MEDS: TYLENOL PO PRN ×2 (08:48→16:32)
[2018-10-09] MEDS: PEPCID PO SCH ×2 (10:44→21:27)
[2018-10-09] MEDS: ZITHROMAX PO SCH (10:44)
[2018-10-09] MEDS: EMTRIVA PO SCH (10:44)
[2018-10-09] MEDS: VIREAD PO SCH (10:44)
[2018-10-09] MEDS: CORDARONE PO SCH ×2 (10:44→21:27)
[2018-10-09] MEDS: DIFLUCAN PO SCH (10:44)
[2018-10-09] MEDS: MEPRON PO SCH ×2 (10:45→21:27)
[2018-10-09] MEDS: TIVICAY PO SCH (10:45)
[2018-10-09] MEDS: SODIUM CHLORIDE FLUSH SYRINGE 10 ML IV SCH ×2 (10:46→21:28)
[2018-10-09] MEDS: FOLVITE PO SCH (10:49)
--- NOTE | 2018-10-09 10:50 | Progress Note ---
Assessment and Plan Cultures: 09/11/2018 blood culture: no growth 09/13/2018 serum cryptococcus ag neg 09/14/2018 CSF cryptococcus ag neg 09/14/2018 stool Nona 09/15/2018 stool +Giardia ag 09/19/2018 CSF cryptococcus ag neg 09/21/2018 tracheal aspirate culture: Nona albicans 09/23/2018 blood culture: No growth 09/23/2018 Fungal blood culture: no growth thus far A/P: 33 y/o male with no PMH; admitted on 09/11/2018 due to 4 days-AMS/behavioral changes, nausea, vomiting, diarrhea, weight loss and cough: 1) Low grade fevers: shock resolved. ?HIV related, v/s CMV related. Fevers have also resolved since initiation of HAART. Cultures have negative thus far. Completed 10 days of Ceftriaxone, off since 10/03/2018. 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 WBC remains low could be from CMV v/s ganciclovir. Clinically better - CMV DNA PCR 09/16/2018 is 1,058,978, 6 log - CMV DNA PCR 09/26/2018 is 710K, 5.85 log - CMV DNA PCR 10/03/2018 is 262K, 5.4 log 3) Acute respiratory failure: still on the vent, mainly due to mental status issues. PJP DFA negative. CXR stable without pneumonia. 4) Acute encephalopathy: possibly from neurosyphilis v/s CMV encephalitis v/s metabolic etiology. Of note, MRI did not show ventriculitis. CSF YAYO virus DNA PCR neg. Toxo IgG negative. He has received 20 days of Pen G IV and Ganciclovir with minimal improvement, still somnolent and nystagmus noted ? neurosyphilis treatement failure ? other etiologies like metabolic, CVA. Discussed with neuro Dr Nazario EEG x 2 no epileptic activity - "Up to 4 EEGs over several months may be needed to capture interictal epileptiform activity". 5) Neurosyphilis: CSF VDRL positive, off Ceftriaxone and back on IV Penicillin (will complete 21 days). 6) Diarrhea: likely due to Giardiasis as Giardia antigen positive in stool, in immunocompromised patient. Completed several days of Flagyl, stopped on 10/03/2018. 7) Oral candidiasis: on fluconazole, will need to continue as prophylaxis till immune reconstitution. 8) A.fib: cardiology following. On Amiodarone. 9) HIV/AIDS: newly diagnosed. Risk factor is MSM behavior. CD4=4. VL=50,700. 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 We started him on Tenofovir, Emtricitabine + Dolutegravir on 09/30/2018, watch closely for IRIS. 10) Neutropenia: likely from HIV/CMV myelosuppression. Also probably worse from ganciclovir. r/o disseminated MAC, thus far cultures negative. s/p neupogen 1 dose on 10/05/2018 11) MAL: resolved. creatinine stable and improved. Recs: - obtain blood cultures in light of fever - will repeat LP and brain MRI tomorrow- in light of no clinical improvement in mentation - completed IV Penicillin G 24 million units daily for 21 days on 10/08/2018 - continue IV Ganciclovir 5 mg/kg q12 hrs, continue till CMV PCR is <200 - continue atovaquone and azithromycin prophylaxis - continue fluconazole 200 mg daily PO as prophylaxis - continue HAART: Tenofovir, Emtricitabine + Dolutegravir watch closely for IRIS - monitor daily CBC, BMP - s/p neupogen 1 dose on 10/05/2018, hematology on board now, agree with additional Neupogen as needed from ID standpoint Alayna Menendez MD Infectious Diseases Community Health Educator [facility] ([facility]) M [phone] O [phone] Subjective Date of service: 10/09/18 Principal diagnosis: Severe sepsis; Ac hypoxemic Resp failure; [place]. Pneumonia; Ac encephalopathy Interval history: Patient remains lethargic intubated on CPAP but open eyes, moves right hand, does not move left hand. Spiking fever 100.6 ROS: unable to obtain Objective - Exam Narrative Exam: Constitutional: Intubated somnolent open eyes in NAD Head, Ears, Nose: Normocephalic, atraumatic. External ears, nose normal Eyes: Conjunctivae/corneas clear. No icterus. No ptosis. +lateral nystagmus Neck:no JVD, left anterior neck large hard nodule non tender Oral: ETT, OGT Cardiovascular: tachycardic Respiratory: distant BS GI: Soft, non-tender; bowel sounds normal. No peritoneal signs Musculoskeletal: No pedal edema, no cyanosis. Skin: No rash or abscess. Hem/Lymphatic: No palpable cervical or supraclavicular nodes. No lymphangitis Psych: alert Neurological: alert, moves right hand, does not move left hand - Constitutional Vitals: Vital Signs Temp Pulse Resp BP Pulse Ox 100.6 F H 102 H 25 H 120/77 96 10/09/18 08:00 10/09/18 09:01 10/09/18 09:01 10/09/18 09:01 10/09/18 09:01 Temperature -Last 24 Hours Temperature 100.6 F Temperature 100.3 F Temperature 100.4 F Temperature 99.6 F Temperature 98.1 F Temperature 98.1 F Temperature 99.7 F - Labs CBC & Chem 7: 10/09/18 04:20 10/09/18 04:20 Labs: Abnormal lab results 10/09/18 10/09/18 Range/Units 04:20 04:20 WBC 1.1 L* (4.5-11.0) K/mm3 RBC 3.35 L (3.65-5.03) M/mm3 Hgb 9.9 L (11.8-15.2) gm/dl Hct 30.1 L (35.5-45.6) % RDW 21.4 H (13.2-15.2) % BUN 55 H (9-20) mg/dL Creatinine 3.8 H D (0.8-1.5) mg/dL Calcium 8.3 L (8.4-10.2) mg/dL
[2018-10-09 11:04] LABS: Anisocytosis 1+; Hypochromasia 2+; Macrocytosis 1+; Ovalocytes 1+; Total Cells Counted 100
[2018-10-09] MEDS: GRANIX SUB-Q SCH (11:04)
[2018-10-09 11:05] LABS: Platelet Estimate Consistent w Auto
--- NOTE | 2018-10-09 16:01 | Progress Note ---
Assessment and Plan Assessment and plan: Severe Sepsis. Etiology secondary to bacterial pneumonia +/- gastroenteritis with newly diagnosed with HIV. Fevers have re-emerged. Repeat blood cx per ID. ARF. Cr has increased from 0.7 to 3.8 quickly. ? lab error. Repeat stat. Nephrology consult and check Renal US if accurate Acute hypoxemic respiratory failure. Etiology mostly secondary to mental status issues. Pulm following Disseminated CMV viremia: continue IV Ganciclovir 5 mg/kg q12 hrs, continue till CMV PCR is <200. Repeat LP tomorrow Toxic metabolic encephalopathy. 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 Of note, MRI did not show ventriculitis. Neurology re-consultation. Repeat A. fib with RVR. Converted to NSR. cont Amiodarone Cont Heparin drip. Neurosyphilis: CSF VDRL positive, off Ceftriaxone and back on IV Penicillin (will complete 21 days). Diarrhea. Resolved, etiology likely secondary to Giardia. Giardia antigen positive in stool. Completed several days of Flagyl. Oral candidiasis. Fluconazole HIV/AIDS. New Diagnosis. Started on HAART on 09/30, Tenofovir, Emtricitabine + Dolutegravir watch closely for IRIS continue atovaquone and azithromycin prophylaxis Neutropenia. 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 Also probably worse from ganciclovir. r/o disseminated MAC, thus far cultures negative. Hematology followed MAL. Resolved Prognosis is guarded. For Trach and PEG. Surg consulted Bedside trach/PEG scheduled for Oct 11 at 11am The high probability of a clinically significant, sudden or life threatening deterioration of the [neurological, respiratory and cardiac] system(s) required my full and direct attention, intervention and personal management. The aggregate critical care time was [31] minutes. This time is in addition to time spent performing reported procedures but includes the following: [x] Data Review and interpretation [x] Patient assessment and monitoring of vital signs [x] Documentation [x] Medication orders and management History Interval history: Patient is 33 yo initially presented with diarrhea, found to have pneumonia, sepsis, HIV/AIDS(new diagnosis) with CD4 count of 4. He was started on abx for PJP. His mental status has worsened with confusion, lethargy. LP done . He was diagnosed with neurosyphilis. Started on Penicillin. Closest family is sister in [place], and dr. Baltazar spoke to her several times about diagnosis but did not tell her about HIV/AIDS because of patient confidentiality. The patient decompensated on 09/20/18 with acute hypoxemic respiratory failure and worsening toxic metabolic encephalopathy requiring transfer to ICU and intubation. He now remains on mechanical ventilation. The patient was also noted to develop SVT requiring amiodarone drip as well as heparin drip. Hospitalist Physical - Constitutional Vitals: Temp Pulse Resp BP Pulse Ox 100.0 F H 111 H 29 H 140/98 99 10/09/18 12:00 10/09/18 14:23 10/09/18 14:01 10/09/18 14:23 10/09/18 14:01 General appearance: Present: other (orally intubated, minimal response--right side spontaneous movement) - EENT Eyes: Present: PERRL, EOM intact ENT: hearing intact, clear oral mucosa, dentition normal - Neck Neck: Present: supple, normal ROM - Respiratory Respiratory effort: normal Respiratory: bilateral: diminished, rhonchi - Cardiovascular Rhythm: regular Heart Sounds: Present: S1 & S2. Absent: gallop, rub - Extremities Extremities: no ischemia, No edema, Full ROM - Abdominal General gastrointestinal: soft, non-tender, non-distended, normal bowel sounds - Integumentary Integumentary: Present: clear, warm, dry - Neurologic Neurologic: CNII-XII intact, moves all extremities Results - Labs CBC & Chem 7: 10/09/18 04:20 10/09/18 04:20 Labs: Laboratory Last Values WBC 1.1 K/mm3 (4.5-11.0) L* 10/09/18 04:20 RBC 3.35 M/mm3 (3.65-5.03) L 10/09/18 04:20 Hgb 9.9 gm/dl (11.8-15.2) L 10/09/18 04:20 Hct 30.1 % (35.5-45.6) L 10/09/18 04:20 MCV 90 fl (84-94) 10/09/18 04:20 MCH 30 pg (28-32) 10/09/18 04:20 MCHC 33 % (32-34) 10/09/18 04:20 RDW 21.4 % (13.2-15.2) H 10/09/18 04:20 Plt Count 267 K/mm3 (140-440) 10/09/18 04:20 [place] % (Auto) Chef Kitchen Manager 09/29/18 05:00 Bas[place] % (Auto) Chef Kitchen Manager 10/09/18 04:20 Add Manual Diff Complete 10/09/18 04:20 Total Counted 100 10/09/18 04:20 Seg Neutrophils % Chef Kitchen Manager 10/09/18 04:20 Seg Neuts % (Manual) 19.0 % (40.0-70.0) L 10/09/18 04:20 Band Neutrophils % 1.0 % 10/09/18 04:20 Lymphocytes % (Manual) 42.0 % (13.4-35.0) H 10/09/18 04:20 Reactive Lymphs % (Man) 3.0 % 10/09/18 04:20 Monocytes % (Manual) 18.0 % (0.0-7.3) H 10/09/18 04:20 Eosinophils % (Manual) 15.0 % (0.0-4.3) H 10/09/18 04:20 Basophils % (Manual) 2.0 % (0.0-1.8) H 10/09/18 04:20 Metamyelocytes % 0 % 10/09/18 04:20 Myelocytes % 0 % 10/09/18 04:20 Promyelocytes % 0 % 10/09/18 04:20 Blast Cells % 0 % 10/09/18 04:20 Nucleated RBC % Not Reportable 10/09/18 04:20 Seg Neutrophils # Man 0.2 K/mm3 (1.8-7.7) L 10/09/18 04:20 Band Neutrophils # 0.0 K/mm3 10/09/18 04:20 Abs Lymphs (Manual) 309 cells/uL (850-3900) L 09/13/18 12:29 Lymphocytes # (Manual) 0.5 K/mm3 (1.2-5.4) L 10/09/18 04:20 Abs React Lymphs (Man) 0.0 K/mm3 10/09/18 04:20 Monocytes # (Manual) 0.2 K/mm3 (0.0-0.8) 10/09/18 04:20 Eosinophils # (Manual) 0.2 K/mm3 (0.0-0.4) 10/09/18 04:20 Basophils # (Manual) 0.0 K/mm3 (0.0-0.1) 10/09/18 04:20 Metamyelocytes # 0.0 K/mm3 10/09/18 04:20 Myelocytes # 0.0 K/mm3 10/09/18 04:20 Promyelocytes # 0.0 K/mm3 10/09/18 04:20 Blast Cells # 0.0 K/mm3 10/09/18 04:20 WBC Morphology Not Reportable 10/09/18 04:20 Hypersegmented Neuts Not Reportable 10/09/18 04:20 Hyposegmented Neuts Not Reportable 10/09/18 04:20 Hypogranular Neuts Not Reportable 10/09/18 04:20 Smudge Cells Not Reportable 10/09/18 04:20 Toxic Granulation Not Reportable 10/09/18 04:20 Toxic Vacuolation Not Reportable 10/09/18 04:20 Dohle Bodies Not Reportable 10/09/18 04:20 Pelger-Huet Anomaly Not Reportable 10/09/18 04:20 Giovanna Rods Not Reportable 10/09/18 04:20 Platelet Estimate Consistent w auto 10/09/18 04:20 Clumped Platelets Not Reportable 10/09/18 04:20 Plt Clumps, EDTA Not Reportable 10/09/18 04:20 Large Platelets Not Reportable 10/09/18 04:20 Giant Platelets Not Reportable 10/09/18 04:20 Platelet Satelliting Not Reportable 10/09/18 04:20 Plt Morphology Comment Not Reportable 10/09/18 04:20 RBC Morphology Not Reportable 10/09/18 04:20 Dimorphic RBCs Not Reportable 10/09/18 04:20 Polychromasia Not Reportable 10/09/18 04:20 Hypochromasia 2+ 10/09/18 04:20 Poikilocytosis Not Reportable 10/09/18 04:20 Anisocytosis 1+ 10/09/18 04:20 Microcytosis Not Reportable 10/09/18 04:20 Macrocytosis 1+ 10/09/18 04:20 Spherocytes Not Reportable 10/09/18 04:20 Pappenheimer Bodies Not Reportable 10/09/18 04:20 Sickle Cells Not Reportable 10/09/18 04:20 Target Cells Not Reportable 10/09/18 04:20 Tear Drop Cells Not Reportable 10/09/18 04:20 Ovalocytes 1+ 10/09/18 04:20 Stomatocytes 1+ 09/29/18 05:00 Helmet Cells Not Reportable 10/09/18 04:20 [place] Bodies Not Reportable 10/09/18 04:20 [place] Rings Not Reportable 10/09/18 04:20 [place] Cells Not Reportable 10/09/18 04:20 Bite Cells Not Reportable 10/09/18 04:20 Crenated Cell Not Reportable 10/09/18 04:20 Elliptocytes Few 10/09/18 04:20 Acanthocytes (Spur) Not Reportable 10/09/18 04:20 Rouleaux Not Reportable 10/09/18 04:20 Hemoglobin C Crystals Not Reportable 10/09/18 04:20 Schistocytes Not Reportable 10/09/18 04:20 Malaria parasites Not Reportable 10/09/18 04:20 Kieran Bodies Not Reportable 10/09/18 04:20 Hem Pathologist Commnt No 10/09/18 04:20 PT 19.9 Sec. (12.2-14.9) H 09/21/18 15:00 INR 1.65 (0.87-1.13) H 09/21/18 15:00 APTT 40.9 Sec. (24.2-36.6) H 09/21/18 15:00 Heparin Anti-Xa Level 0.35 U.I./ml (0.3-0.7) 10/05/18 10:19 POC ABG pH 7.516 (7.35-7.45) H 10/07/18 15:38 POC ABG pCO2 32.1 (35-45) L 10/07/18 15:38 POC ABG pO2 93 (80-105) 10/07/18 15:38 POC ABG HCO3 26.0 10/07/18 15:38 POC ABG Total CO2 27 10/07/18 15:38 POC ABG O2 Sat 98 10/07/18 15:38 POC ABG Base Excess 3 10/07/18 15:38 FiO2 25 % 10/07/18 15:38 Sodium 142 mmol/L (137-145) 10/09/18 04:20 Potassium 5.0 mmol/L (3.6-5.0) D 10/09/18 04:20 Chloride 103.4 mmol/L (98-107) 10/09/18 04:20 Carbon Dioxide 22 mmol/L (22-30) 10/09/18 04:20 Anion Gap 22 mmol/L 10/09/18 04:20 BUN 55 mg/dL (9-20) H 10/09/18 04:20 Creatinine 3.8 mg/dL (0.8-1.5) H D 10/09/18 04:20 Estimated GFR 22 ml/min 10/09/18 04:20 BUN/Creatinine Ratio 14 % 10/09/18 04:20 Glucose 89 mg/dL (75-100) 10/09/18 04:20 POC Glucose 124 (70-105) H 10/09/18 11:48 Lactic Acid 0.90 mmol/L (0.7-2.0) 09/11/18 20:17 Calcium 8.3 mg/dL (8.4-10.2) L 10/09/18 04:20 Phosphorus 3.10 mg/dL (2.5-4.5) D 09/27/18 04:11 Magnesium 1.40 mg/dL (1.7-2.3) L 10/03/18 13:23 Iron 35 ug/dL (49-181) L 10/06/18 09:40 TIBC 157 mcg/dL (250-450) L 10/06/18 09:40 Ferritin 1126.0 ng/mL (13.0-400.0) H 10/06/18 09:40 Total Bilirubin 0.30 mg/dL (0.1-1.2) 10/07/18 04:20 Direct Bilirubin < 0.2 mg/dL (0-0.2) 09/13/18 07:31 AST 30 units/L (5-40) 10/07/18 04:20 ALT 25 units/L (7-56) 10/07/18 04:20 Alkaline Phosphatase 57 units/L (35-129) 10/07/18 04:20 Ammonia 27.0 umol/L (25-60) 10/03/18 13:23 Total Creatine Kinase 685 units/L (55-170) H 09/21/18 04:25 CK-MB (CK-2) 3.5 ng/mL (0.0-4.0) 09/21/18 04:25 CK-MB (CK-2) Rel Index 0.5 (0-4) 09/21/18 04:25 NT-Pro-B Natriuret Pep 145.9 pg/mL (0-450) 09/18/18 16:07 Total Protein 5.5 g/dL (6.3-8.2) L 10/07/18 04:20 Albumin 2.2 g/dL (3.9-5) L 10/07/18 04:20 Albumin/Globulin Ratio 0.7 % 10/07/18 04:20 Vitamin B12 934.5 pg/mL (211-911) H 09/16/18 11:41 Folate 6.71 ng/mL (7.3-26.0) L 10/06/18 09:40 TSH 5.190 mlU/mL (0.270-4.200) H 09/18/18 12:46 Free T4 0.75 ng/dL (0.76-1.46) L 09/18/18 12:46 Urine Color [place] (Yellow) 09/11/18 Unknown Urine Turbidity Clear (Clear) 09/11/18 Unknown Urine pH 5.0 (5.0-7.0) 09/11/18 Unknown Ur Specific [place] 1.016 (1.003-1.030) 09/11/18 Unknown Urine Protein <15 mg/dl mg/dL (Negative) 09/11/18 Unknown Urine Glucose (UA) Neg mg/dL (Negative) 09/11/18 Unknown Urine Ketones Neg mg/dL (Negative) 09/11/18 Unknown Urine Blood Sm (Negative) 09/11/18 Unknown Urine Nitrite Neg (Negative) 09/11/18 Unknown Urine Bilirubin Neg (Negative) 09/11/18 Unknown Urine Urobilinogen < 2.0 mg/dL (<2.0) 09/11/18 Unknown Ur Leukocyte Esterase Neg (Negative) 09/11/18 Unknown Urine WBC (Auto) 1.0 /HPF (0.0-6.0) 09/11/18 Unknown Urine RBC (Auto) 3.0 /HPF (0.0-6.0) 09/11/18 Unknown Urine Mucus Few /HPF 09/11/18 Unknown CSF Appearance Clear 09/19/18 15:00 CSF Color Colorless 09/19/18 15:00 CSF WBC 4 /mm3 (1-10) 09/19/18 15:00 CSF RBC 583 /mm3 (0-0) 09/19/18 15:00 CSF Seg Neutrophils 21.4 % (0-6) 09/19/18 15:00 CSF Lymphocytes % 71.4 % (40-80) 09/19/18 15:00 CSF Reactive Lymphs 0 % 09/19/18 15:00 CSF Monocytes % 7.1 % (15-45) 09/19/18 15:00 CSF Eosinophils % 0 % 09/19/18 15:00 CSF Basophils 0 % 09/19/18 15:00 CSF Pathologist Review C 09/19/18 15:00 CSF Glucose 32 mg/dL 09/19/18 15:00 CSF Total Protein 123 mg/dL 09/19/18 15:00 CSF VDRL Reactive 1:4 (Nonreactive) H 09/19/18 15:00 Vancomycin Trough 14.3 ug/mL (5.0-20.0) 09/25/18 14:45 Urine Opiates Screen Presumptive negative 09/17/18 15:52 Urine Methadone Screen Presumptive negative 09/17/18 15:52 Ur Barbiturates Screen Presumptive negative 09/17/18 15:52 Ur Phencyclidine Scrn Presumptive negative 09/17/18 15:52 Ur Amphetamines Screen Presumptive negative 09/17/18 15:52 U Benzodiazepines Scrn Presumptive negative 09/17/18 15:52 Urine Cocaine Screen Presumptive negative 09/17/18 15:52 U Marijuana (THC) Screen Presumptive negative 09/17/18 15:52 Drugs of Abuse Note Disclamer 09/17/18 15:52 Lymph Enumerat CD4/CD8 0.01 (0.86-5.00) L 09/13/18 12:29 % CD3 Cells 71 % (57-85) 09/13/18 12:29 Absolute CD3 Count 220 cells/uL (840-3060) L 09/13/18 12:29 % CD4 Cells 1 % (30-61) L 09/13/18 12:29 Absolute CD4 Count 4 cells/uL (490-1740) L 09/13/18 12:29 % CD8 Cells 70 % (12-42) H 09/13/18 12:29 Absolute CD8 Count 216 cells/uL (180-1170) 09/13/18 12:29 % CD19 Cells 17 % (6-29) 09/13/18 12:29 Absolute CD19 Count 54 cells/uL (110-660) L 09/13/18 12:29 RPR Titer 1:16 09/13/18 12:29 RPR Reactive (Nonreactive) 09/13/18 12:29 T.pallidum Ab (FTA-ABS) Reactive (Nonreactive) H 09/14/18 16:34 C. difficile Toxin A&B Negative (Negative) 09/12/18 05:30 CMV DNA PCR log copy manager/mL See scanned results 10/03/18 06:12 Hepatitis A IgM Ab Non-reactive (NonReactive) 09/13/18 12:29 Hep Bs Antigen Non-reactive (Negative) 09/13/18 12:29 Hep B Core IgM Ab Non-reactive (NonReactive) 09/13/18 12:29 Hepatitis C Antibody Non-reactive (NonReactive) 09/13/18 12:29 HIV-1 Antibody See scanned result 09/11/18 19:14 HIV-1 RNA PCR copies/ml 63274 Copies/mL H 09/13/18 12:29 HIV-1 RNA (PCR) log 4.71 Log cps/mL H 09/13/18 12:29 HIV-2 Ab (Immunoblot) See scanned result 09/11/18 19:14 HIV 1&2 Antibody Rapid Reactive (Non React) 09/11/18 19:14 HIV P24 Antigen Non react (Non React) 09/11/18 19:14 Influenza A (Rapid) Negative (Negative) 09/13/18 16:05 Influenza A (RT-PCR) Negative (Negative) 09/13/18 16:05 Influenza B (Rapid) Negative (Negative) 09/13/18 16:05 Influenza B (RT-PCR) Negative (Negative) 09/13/18 16:05 Toxoplasma IgG Ab <7.20 IU/mL (<7.20) 09/16/18 12:09 Miscellaneous Test see below 09/21/18 03:55 Nutrition/Malnutrition Assess - Dietary Evaluation Nutrition/Malnutrition Findings: Nutrition Notes Start: 09/12/18 17:45 Freq: Status: Active Protocol: Document 10/07/18 11:44 CP (Rec: 10/07/18 11:51 CP [id number]) Co-Sign 10/07/18 11:44 LP Nutrition Notes Initial or Follow up Reassessment Current Diagnosis Acute Kidney Injury Sepsis Respiratory Failure Other Pertinent Diagnosis HIV, bilat pneu, gastroenteritis, encephalopathy Current Diet TF- Vital High Protein at 70ml /hr Labs/Tests Cr: 0.7 PRO: 5.5 Pertinent Medications Reviewed Height 6 ft Weight 118 kg [place] Body Weight (kg) 80.90 BMI 35.2 Subjective/Other Information Observed TF running at goal ( 70 mL). Per nurse, water flush of 150 mL was administered 08 :00 today. Percent of energy/protein needs met: 93%/91% Burn Absent Trauma Absent #2 Nutrition Diagnosis Inadequate oral intake Diagnosis Progress(for reassessment Continues documentation) #1 Nutrition Diagnosis Malnutrition Diagnosis Progress(for reassessment Continues documentation) Is patient on ventilator? Yes Is Patient Ambulatory and/or Out of Bed No REE-([facility]-confined to bed) 2597.352 Kcal/Kg value to use for calculation 15 Approximate Energy Requirements Using 1770 kcal/Kg Additional Notes Pro needs 2g/kg IBW: 162g/day Fluid needs 1ml/kcal Nutrition Intervention Change Diet Order: Continue TF Nutrition Support: Vital HP at 70ml/hr Kcal 1,680 Protein (gm) 147 Fluid (mL) 1,404 Goal #1 Continue to meet at least 80% of PRO and kcal needs with TF. Follow-Up By: 10/14/18 Additional Comments F/U: Stable TF/TF tolerance
--- NOTE | 2018-10-09 16:27 | Progress Note ---
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 - continue Robinul & scopolamine for secretion control (increased Robinul to q6h) - continue to hold all other sedating medications - will continue daytime SBT's for now while following mental status - continue anti-infective's per ID recs (ART has been started appropriately) - reglan stopped - continue supplemental oxygen to keep sats > 90% - continue bronchodilators with pulmonary hygiene per RT - Continue empiric and targeted anti-infective's per ID recs antibiotics per ID - continue set rate at 12/min - continue daily SBT's - daily SAT's once sedation resumed - continue IV heparin for NSTEMI - continue Robinul 2 mg q8h for secretions - IV amiodarone stopped - cardiology evaluation ongoing - diarrhea improved - continue fluconazole for candidiasis - watch for drug-drug interactions - continue enteral nutrition as tolerated - when resumed target sedation for RASS 0 to -1 - PT/OT/ROM exercises as tolerated - mobility protocol for pressure ulcer prophylaxis - continue GI & VTE prophylaxis - continue other care per attending / other consultants ...... re-evaluate in am & prn ..... care plan discussed with relative who will be here for his trach/peg on and all pertinent question were answered as best i could The high probability of a clinically significant, sudden or life threatening deterioration of the [cardiac, respiratory and neurologic] system(s) required my full and direct attention, intervention and personal management. The aggregate critical care time was [35] minutes. This time is in addition to time spent performing reported procedures but includes the following: [x] Data Review and interpretation [x] Patient assessment and monitoring of vital signs [x] Documentation [x] Medication orders and management Subjective Date of service: 10/09/18 Principal diagnosis: Severe sepsis; Ac hypoxemic Resp failure; [place]. Pneumonia; Ac encephalopathy Interval history: Patient is seen today for: Severe sepsis (present on admission with fever, tachycardia, hypotension and elevated lactate); Acute hypoxemic Respiratory failure; Bilateral pneumonia; Acute encephalopathy (Toxic / Metabolic); Atrial Fibrillation with RVR Seen and examined at bedside; 24hour events reviewed; nursing and respiratory care staff consulted; no adverse overnight events reported to me; relative visiting; remains on MVS; no spontaneous movement of left side; spiking low grade fevers despite completing anti-infective course for CMV and neuro- syphillis Objective Vital Signs - 12hr 10/09/18 10/09/18 10/09/18 05:00 06:00 07:00 Temperature Pulse Rate 115 H 117 H 120 H Pulse Rate [ Throughout] Respiratory 22 24 27 H Rate Respiratory Rate [ Throughout] Blood Pressure 149/77 149/77 139/86 O2 Sat by Pulse 99 99 99 Oximetry 10/09/18 10/09/18 10/09/18 08:00 08:34 08:38 Temperature 100.6 F H Pulse Rate 117 H 118 H Pulse Rate [ 117 H Throughout] Respiratory 29 H 25 H Rate Respiratory 25 H Rate [ Throughout] Blood Pressure 136/80 144/85 O2 Sat by Pulse 99 99 Oximetry 10/09/18 10/09/18 10/09/18 08:49 08:53 09:01 Temperature Pulse Rate 113 H 102 H Pulse Rate [ 112 H Throughout] Respiratory 25 H Rate Respiratory 25 H Rate [ Throughout] Blood Pressure 144/85 120/77 O2 Sat by Pulse 96 Oximetry 10/09/18 10/09/18 10/09/18 10:00 11:00 11:51 Temperature Pulse Rate 108 H 107 H 109 H Pulse Rate [ Throughout] Respiratory 26 H 29 H 23 Rate Respiratory Rate [ Throughout] Blood Pressure 126/69 116/70 116/70 O2 Sat by Pulse 99 98 98 Oximetry 10/09/18 10/09/18 10/09/18 12:00 13:00 13:41 Temperature 100.0 F H Pulse Rate 107 H 110 H Pulse Rate [ 110 H Throughout] Respiratory 22 28 H Rate Respiratory 22 Rate [ Throughout] Blood Pressure 117/64 120/73 O2 Sat by Pulse 98 100 Oximetry 10/09/18 10/09/18 10/09/18 13:54 14:01 14:23 Temperature Pulse Rate 121 H 111 H Pulse Rate [ 114 H Throughout] Respiratory 29 H Rate Respiratory 25 H Rate [ Throughout] Blood Pressure 140/98 140/98 O2 Sat by Pulse 99 Oximetry Constitutional: lethargic, agitated, appears uncomfortable, other (orally intubated ETT at 23cm) Eyes: non-icteric ENT: oropharynx moist, other (ETT 25 cm NIKA) Neck: supple, no lymphadenopathy, other (no thyromegaly) Effort: normal Ascultation: Bilateral: rales, rhonchi (scant) Percussion: Bilateral: not dull Cardiovascular: regular rate and rhythm, other (S1,S2, no murmurs, gallps or rubs) Gastrointestinal: normoactive bowel sounds, soft, non-tender, non-distended Integumentary: rash Extremities: no cyanosis, pulses normal, no ischemia or petechiae, edema Neurologic: non-focal exam (grossly), pupils equal and round, motor strength normal and (weak ) Psychiatric: other (unable to assess) CBC and BMP: 10/09/18 04:20 10/09/18 04:20 ABG, PT/INR, D-dimer: ABG POC ABG pH 7.516 (7.35-7.45) H 10/07/18 15:38 POC ABG pCO2 32.1 (35-45) L 10/07/18 15:38 POC ABG pO2 93 (80-105) 10/07/18 15:38 POC ABG HCO3 26.0 10/07/18 15:38 POC ABG Total CO2 27 10/07/18 15:38 POC ABG O2 Sat 98 10/07/18 15:38 PT/INR, D-dimer PT 19.9 Sec. (12.2-14.9) H 09/21/18 15:00 INR 1.65 (0.87-1.13) H 09/21/18 15:00 Abnormal lab findings: Abnormal Labs 09/11/18 09/11/18 09/11/18 18:00 18:00 18:00 WBC 1.9 L* RBC Hgb Hct RDW Plt Count 130 L Seg Neuts % (Manual) Lymphocytes % (Manual) Monocytes % (Manual) 16.0 H Eosinophils % (Manual) Basophils % (Manual) Nucleated RBC % Seg Neutrophils # Man 0.9 L Abs Lymphs (Manual) Lymphocytes # (Manual) 0.5 L PT INR APTT Heparin Anti-Xa Level POC ABG pH POC ABG pCO2 POC ABG pO2 Sodium 131 L Potassium Chloride Carbon Dioxide 17 L BUN 21 H Creatinine Glucose 126 H POC Glucose Lactic Acid 2.60 H* Calcium 8.1 L Phosphorus Magnesium Iron TIBC Ferritin AST 123 H ALT 115 H Total Creatine Kinase Total Protein Albumin 3.0 L Vitamin B12 Folate TSH Free T4 CSF VDRL Lymph Enumerat CD4/CD8 Absolute CD3 Count % CD4 Cells Absolute CD4 Count % CD8 Cells Absolute CD19 Count T.pallidum Ab (FTA-ABS) HIV-1 RNA PCR copies/ml HIV-1 RNA (PCR) log Miscellaneous Test 09/11/18 09/13/18 09/13/18 19:01 04:28 07:31 WBC 2.0 L RBC Hgb Hct RDW Plt Count 116 L Seg Neuts % (Manual) Lymphocytes % (Manual) Monocytes % (Manual) 8.0 H Eosinophils % (Manual) Basophils % (Manual) Nucleated RBC % Seg Neutrophils # Man 1.0 L Abs Lymphs (Manual) Lymphocytes # (Manual) 0.5 L PT INR APTT Heparin Anti-Xa Level POC ABG pH POC ABG pCO2 POC ABG pO2 Sodium Potassium Chloride 110.4 H Carbon Dioxide 19 L BUN Creatinine Glucose POC Glucose Lactic Acid 3.70 H* Calcium 7.9 L Phosphorus Magnesium Iron TIBC Ferritin AST ALT Total Creatine Kinase Total Protein Albumin Vitamin B12 Folate TSH Free T4 CSF VDRL Lymph Enumerat CD4/CD8 Absolute CD3 Count % CD4 Cells Absolute CD4 Count % CD8 Cells Absolute CD19 Count T.pallidum Ab (FTA-ABS) HIV-1 RNA PCR copies/ml HIV-1 RNA (PCR) log Miscellaneous Test 09/13/18 09/13/18 09/13/18 07:31 12:29 12:29 WBC RBC Hgb Hct RDW Plt Count Seg Neuts % (Manual) Lymphocytes % (Manual) Monocytes % (Manual) Eosinophils % (Manual) Basophils % (Manual) Nucleated RBC % Seg Neutrophils # Man Abs Lymphs (Manual) 309 L Lymphocytes # (Manual) PT INR APTT Heparin Anti-Xa Level POC ABG pH POC ABG pCO2 POC ABG pO2 Sodium Potassium Chloride Carbon Dioxide BUN Creatinine Glucose POC Glucose Lactic Acid Calcium Phosphorus Magnesium Iron TIBC Ferritin AST 70 H ALT 68 H Total Creatine Kinase Total Protein Albumin 2.5 L Vitamin B12 Folate TSH Free T4 CSF VDRL Lymph Enumerat CD4/CD8 0.01 L Absolute CD3 Count 220 L % CD4 Cells 1 L Absolute CD4 Count 4 L % CD8 Cells 70 H Absolute CD19 Count 54 L T.pallidum Ab (FTA-ABS) HIV-1 RNA PCR copies/ml 84228 H HIV-1 RNA (PCR) log 4.71 H Miscellaneous Test 09/13/18 09/14/18 09/14/18 12:29 07:17 16:34 WBC RBC Hgb Hct RDW Plt Count Seg Neuts % (Manual) Lymphocytes % (Manual) Monocytes % (Manual) Eosinophils % (Manual) Basophils % (Manual) Nucleated RBC % Seg Neutrophils # Man Abs Lymphs (Manual) Lymphocytes # (Manual) PT INR APTT Heparin Anti-Xa Level POC ABG pH POC ABG pCO2 POC ABG pO2 Sodium Potassium 3.4 L Chloride Carbon Dioxide 18 L BUN Creatinine Glucose 104 H POC Glucose Lactic Acid Calcium 7.6 L Phosphorus Magnesium Iron TIBC Ferritin AST 49 H ALT Total Creatine Kinase Total Protein Albumin 2.5 L Vitamin B12 Folate TSH Free T4 CSF VDRL Lymph Enumerat CD4/CD8 Absolute CD3 Count % CD4 Cells Absolute CD4 Count % CD8 Cells Absolute CD19 Count T.pallidum Ab (FTA-ABS) Reactive H HIV-1 RNA PCR copies/ml HIV-1 RNA (PCR) log Miscellaneous Test Flexitest 1 H 09/15/18 09/15/18 09/15/18 05:05 05:05 Unknown WBC 1.6 L* RBC Hgb 10.4 L Hct 31.1 L D RDW Plt Count 113 L Seg Neuts % (Manual) Lymphocytes % (Manual) Monocytes % (Manual) Eosinophils % (Manual) Basophils % (Manual) Nucleated RBC % Seg Neutrophils # Man Abs Lymphs (Manual) Lymphocytes # (Manual) PT INR APTT Heparin Anti-Xa Level POC ABG pH POC ABG pCO2 POC ABG pO2 Sodium Potassium Chloride 107.9 H Carbon Dioxide 18 L BUN 6 L Creatinine Glucose POC Glucose Lactic Acid Calcium 7.4 L Phosphorus Magnesium Iron TIBC Ferritin AST ALT Total Creatine Kinase Total Protein Albumin Vitamin B12 Folate TSH Free T4 CSF VDRL Reactive 1:8 H Lymph Enumerat CD4/CD8 Absolute CD3 Count % CD4 Cells Absolute CD4 Count % CD8 Cells Absolute CD19 Count T.pallidum Ab (FTA-ABS) HIV-1 RNA PCR copies/ml HIV-1 RNA (PCR) log Miscellaneous Test 09/16/18 09/16/18 09/16/18 06:55 11:41 11:41 WBC 2.8 L RBC Hgb 10.9 L Hct 33.5 L RDW Plt Count 135 L Seg Neuts % (Manual) Lymphocytes % (Manual) Monocytes % (Manual) Eosinophils % (Manual) Basophils % (Manual) Nucleated RBC % Seg Neutrophils # Man Abs Lymphs (Manual) Lymphocytes # (Manual) PT INR APTT Heparin Anti-Xa Level POC ABG pH POC ABG pCO2 POC ABG pO2 Sodium Potassium Chloride Carbon Dioxide BUN Creatinine Glucose POC Glucose Lactic Acid Calcium Phosphorus Magnesium Iron TIBC Ferritin AST ALT Total Creatine Kinase Total Protein Albumin Vitamin B12 Folate TSH 4.210 H Free T4 0.72 L CSF VDRL Lymph Enumerat CD4/CD8 Absolute CD3 Count % CD4 Cells Absolute CD4 Count % CD8 Cells Absolute CD19 Count T.pallidum Ab (FTA-ABS) HIV-1 RNA PCR copies/ml HIV-1 RNA (PCR) log Miscellaneous Test 09/16/18 09/16/18 09/17/18 11:41 15:43 05:13 WBC 2.0 L RBC Hgb 10.9 L Hct 32.7 L RDW Plt Count Seg Neuts % (Manual) Lymphocytes % (Manual) Monocytes % (Manual) Eosinophils % (Manual) Basophils % (Manual) Nucleated RBC % Seg Neutrophils # Man Abs Lymphs (Manual) Lymphocytes # (Manual) PT INR APTT Heparin Anti-Xa Level POC ABG pH POC ABG pCO2 29.3 L POC ABG pO2 70 L Sodium Potassium Chloride Carbon Dioxide BUN Creatinine Glucose POC Glucose Lactic Acid Calcium Phosphorus Magnesium Iron TIBC Ferritin AST ALT Total Creatine Kinase Total Protein Albumin Vitamin B12 934.5 H Folate TSH Free T4 CSF VDRL Lymph Enumerat CD4/CD8 Absolute CD3 Count % CD4 Cells Absolute CD4 Count % CD8 Cells Absolute CD19 Count T.pallidum Ab (FTA-ABS) HIV-1 RNA PCR copies/ml HIV-1 RNA (PCR) log Miscellaneous Test 09/17/18 09/17/18 09/18/18 05:13 21:57 12:46 WBC RBC Hgb Hct RDW Plt Count Seg Neuts % (Manual) Lymphocytes % (Manual) Monocytes % (Manual) Eosinophils % (Manual) Basophils % (Manual) Nucleated RBC % Seg Neutrophils # Man Abs Lymphs (Manual) Lymphocytes # (Manual) PT INR APTT Heparin Anti-Xa Level POC ABG pH POC ABG pCO2 POC ABG pO2 Sodium Potassium Chloride 107.2 H Carbon Dioxide 21 L BUN 3 L Creatinine 0.7 L Glucose POC Glucose 108 H Lactic Acid Calcium 7.9 L Phosphorus Magnesium Iron TIBC Ferritin AST ALT Total Creatine Kinase Total Protein 6.1 L Albumin 2.6 L Vitamin B12 Folate TSH Free T4 0.75 L CSF VDRL Lymph Enumerat CD4/CD8 Absolute CD3 Count % CD4 Cells Absolute CD4 Count % CD8 Cells Absolute CD19 Count T.pallidum Ab (FTA-ABS) HIV-1 RNA PCR copies/ml HIV-1 RNA (PCR) log Miscellaneous Test 09/18/18 09/19/18 09/19/18 12:46 04:57 04:57 WBC 2.1 L RBC Hgb 11.4 L Hct 34.2 L RDW Plt Count Seg Neuts % (Manual) Lymphocytes % (Manual) Monocytes % (Manual) Eosinophils % (Manual) Basophils % (Manual) Nucleated RBC % Seg Neutrophils # Man Abs Lymphs (Manual) Lymphocytes # (Manual) PT INR APTT Heparin Anti-Xa Level POC ABG pH POC ABG pCO2 POC ABG pO2 Sodium Potassium Chloride Carbon Dioxide 19 L BUN 6 L Creatinine Glucose POC Glucose Lactic Acid Calcium 7.9 L Phosphorus Magnesium Iron TIBC Ferritin AST ALT Total Creatine Kinase Total Protein Albumin Vitamin B12 Folate TSH 5.190 H Free T4 CSF VDRL Lymph Enumerat CD4/CD8 Absolute CD3 Count % CD4 Cells Absolute CD4 Count % CD8 Cells Absolute CD19 Count T.pallidum Ab (FTA-ABS) HIV-1 RNA PCR copies/ml HIV-1 RNA (PCR) log Miscellaneous Test 09/19/18 09/19/18 09/20/18 15:00 15:00 05:33 WBC RBC Hgb Hct RDW Plt Count Seg Neuts % (Manual) Lymphocytes % (Manual) Monocytes % (Manual) Eosinophils % (Manual) Basophils % (Manual) Nucleated RBC % Seg Neutrophils # Man Abs Lymphs (Manual) Lymphocytes # (Manual) PT INR APTT Heparin Anti-Xa Level POC ABG pH POC ABG pCO2 POC ABG pO2 Sodium 136 L Potassium Chloride Carbon Dioxide 19 L BUN 7 L Creatinine Glucose POC Glucose Lactic Acid Calcium Phosphorus Magnesium Iron TIBC Ferritin AST ALT Total Creatine Kinase Total Protein Albumin Vitamin B12 Folate TSH Free T4 CSF VDRL Reactive 1:4 H Lymph Enumerat CD4/CD8 Absolute CD3 Count % CD4 Cells Absolute CD4 Count % CD8 Cells Absolute CD19 Count T.pallidum Ab (FTA-ABS) HIV-1 RNA PCR copies/ml HIV-1 RNA (PCR) log Miscellaneous Test Flexitest 1 H 09/20/18 09/21/18 09/21/18 06:52 01:06 03:49 WBC 2.5 L RBC Hgb Hct RDW Plt Count Seg Neuts % (Manual) Lymphocytes % (Manual) Monocytes % (Manual) Eosinophils % (Manual) Basophils % (Manual) Nucleated RBC % Seg Neutrophils # Man Abs Lymphs (Manual) Lymphocytes # (Manual) PT INR APTT Heparin Anti-Xa Level POC ABG pH 7.159 L POC ABG pCO2 32.9 L 70.0 H POC ABG pO2 62 L 254 H Sodium Potassium Chloride Carbon Dioxide BUN Creatinine Glucose POC Glucose Lactic Acid Calcium Phosphorus Magnesium Iron TIBC Ferritin AST ALT Total Creatine Kinase Total Protein Albumin Vitamin B12 Folate TSH Free T4 CSF VDRL Lymph Enumerat CD4/CD8 Absolute CD3 Count % CD4 Cells Absolute CD4 Count % CD8 Cells Absolute CD19 Count T.pallidum Ab (FTA-ABS) HIV-1 RNA PCR copies/ml HIV-1 RNA (PCR) log Miscellaneous Test 09/21/18 09/21/18 09/21/18 04:15 04:15 04:25 WBC 3.1 L RBC Hgb 11.6 L Hct RDW Plt Count Seg Neuts % (Manual) Lymphocytes % (Manual) Monocytes % (Manual) 12.0 H Eosinophils % (Manual) Basophils % (Manual) Nucleated RBC % Seg Neutrophils # Man 1.6 L Abs Lymphs (Manual) Lymphocytes # (Manual) 0.5 L PT INR APTT Heparin Anti-Xa Level POC ABG pH POC ABG pCO2 POC ABG pO2 Sodium Potassium 6.1 H* D Chloride Carbon Dioxide 19 L BUN Creatinine Glucose 108 H POC Glucose Lactic Acid Calcium Phosphorus Magnesium Iron TIBC Ferritin AST ALT Total Creatine Kinase 685 H Total Protein Albumin Vitamin B12 Folate TSH Free T4 CSF VDRL Lymph Enumerat CD4/CD8 Absolute CD3 Count % CD4 Cells Absolute CD4 Count % CD8 Cells Absolute CD19 Count T.pallidum Ab (FTA-ABS) HIV-1 RNA PCR copies/ml HIV-1 RNA (PCR) log Miscellaneous Test 09/21/18 09/21/18 09/21/18 09:59 10:07 11:00 WBC RBC Hgb 11.7 L Hct RDW Plt Count Seg Neuts % (Manual) Lymphocytes % (Manual) Monocytes % (Manual) Eosinophils % (Manual) Basophils % (Manual) Nucleated RBC % Seg Neutrophils # Man Abs Lymphs (Manual) Lymphocytes # (Manual) PT INR APTT Heparin Anti-Xa Level POC ABG pH 7.301 L POC ABG pCO2 POC ABG pO2 109 H Sodium Potassium 6.5 H* Chloride Carbon Dioxide 18 L BUN Creatinine 2.1 H D Glucose POC Glucose Lactic Acid Calcium 8.1 L Phosphorus Magnesium Iron TIBC Ferritin AST 94 H ALT Total Creatine Kinase Total Protein Albumin 2.8 L Vitamin B12 Folate TSH Free T4 CSF VDRL Lymph Enumerat CD4/CD8 Absolute CD3 Count % CD4 Cells Absolute CD4 Count % CD8 Cells Absolute CD19 Count T.pallidum Ab (FTA-ABS) HIV-1 RNA PCR copies/ml HIV-1 RNA (PCR) log Miscellaneous Test 09/21/18 09/21/18 09/21/18 15:00 21:54 21:54 WBC RBC Hgb Hct RDW Plt Count Seg Neuts % (Manual) Lymphocytes % (Manual) Monocytes % (Manual) Eosinophils % (Manual) Basophils % (Manual) Nucleated RBC % Seg Neutrophils # Man Abs Lymphs (Manual) Lymphocytes # (Manual) PT 19.9 H INR 1.65 H APTT 40.9 H Heparin Anti-Xa Level 0.98 H POC ABG pH POC ABG pCO2 POC ABG pO2 Sodium Potassium 5.2 H Chloride Carbon Dioxide BUN Creatinine Glucose POC Glucose Lactic Acid Calcium Phosphorus Magnesium Iron TIBC Ferritin AST ALT Total Creatine Kinase Total Protein Albumin Vitamin B12 Folate TSH Free T4 CSF VDRL Lymph Enumerat CD4/CD8 Absolute CD3 Count % CD4 Cells Absolute CD4 Count % CD8 Cells Absolute CD19 Count T.pallidum Ab (FTA-ABS) HIV-1 RNA PCR copies/ml HIV-1 RNA (PCR) log Miscellaneous Test 09/21/18 09/22/18 09/22/18 22:57 03:01 05:27 WBC RBC Hgb Hct RDW Plt Count Seg Neuts % (Manual) Lymphocytes % (Manual) Monocytes % (Manual) Eosinophils % (Manual) Basophils % (Manual) Nucleated RBC % Seg Neutrophils # Man Abs Lymphs (Manual) Lymphocytes # (Manual) PT INR APTT Heparin Anti-Xa Level POC ABG pH POC ABG pCO2 32.7 L POC ABG pO2 Sodium Potassium Chloride Carbon Dioxide BUN Creatinine Glucose POC Glucose 124 H 128 H Lactic Acid Calcium Phosphorus Magnesium Iron TIBC Ferritin AST ALT Total Creatine Kinase Total Protein Albumin Vitamin B12 Folate TSH Free T4 CSF VDRL Lymph Enumerat CD4/CD8 Absolute CD3 Count % CD4 Cells Absolute CD4 Count % CD8 Cells Absolute CD19 Count T.pallidum Ab (FTA-ABS) HIV-1 RNA PCR copies/ml HIV-1 RNA (PCR) log Miscellaneous Test 09/22/18 09/22/18 09/22/18 07:00 07:00 11:32 WBC 1.8 L* RBC 3.59 L Hgb 10.1 L Hct 30.8 L RDW Plt Count 126 L Seg Neuts % (Manual) Lymphocytes % (Manual) Monocytes % (Manual) Eosinophils % (Manual) Basophils % (Manual) Nucleated RBC % Seg Neutrophils # Man Abs Lymphs (Manual) Lymphocytes # (Manual) PT INR APTT Heparin Anti-Xa Level POC ABG pH POC ABG pCO2 POC ABG pO2 Sodium Potassium Chloride Carbon Dioxide BUN 27 H Creatinine 2.0 H Glucose 128 H POC Glucose 123 H Lactic Acid Calcium 6.9 L Phosphorus Magnesium Iron TIBC Ferritin AST ALT Total Creatine Kinase Total Protein Albumin Vitamin B12 Folate TSH Free T4 CSF VDRL Lymph Enumerat CD4/CD8 Absolute CD3 Count % CD4 Cells Absolute CD4 Count % CD8 Cells Absolute CD19 Count T.pallidum Ab (FTA-ABS) HIV-1 RNA PCR copies/ml HIV-1 RNA (PCR) log Miscellaneous Test 09/22/18 09/22/18 09/22/18 15:52 18:18 23:52 WBC RBC Hgb Hct RDW Plt Count Seg Neuts % (Manual) Lymphocytes % (Manual) Monocytes % (Manual) Eosinophils % (Manual) Basophils % (Manual) Nucleated RBC % Seg Neutrophils # Man Abs Lymphs (Manual) Lymphocytes # (Manual) PT INR APTT Heparin Anti-Xa Level POC ABG pH POC ABG pCO2 48.7 H POC ABG pO2 Sodium Potassium Chloride Carbon Dioxide BUN Creatinine Glucose POC Glucose 110 H 124 H Lactic Acid Calcium Phosphorus Magnesium Iron TIBC Ferritin AST ALT Total Creatine Kinase Total Protein Albumin Vitamin B12 Folate TSH Free T4 CSF VDRL Lymph Enumerat CD4/CD8 Absolute CD3 Count % CD4 Cells Absolute CD4 Count % CD8 Cells Absolute CD19 Count T.pallidum Ab (FTA-ABS) HIV-1 RNA PCR copies/ml HIV-1 RNA (PCR) log Miscellaneous Test 09/23/18 09/23/18 09/23/18 04:10 05:55 05:55 WBC RBC Hgb 10.0 L Hct 30.3 L RDW Plt Count 117 L Seg Neuts % (Manual) Lymphocytes % (Manual) Monocytes % (Manual) Eosinophils % (Manual) Basophils % (Manual) Nucleated RBC % Seg Neutrophils # Man Abs Lymphs (Manual) Lymphocytes # (Manual) PT INR APTT Heparin Anti-Xa Level 0.26 L POC ABG pH POC ABG pCO2 POC ABG pO2 144 H Sodium Potassium Chloride Carbon Dioxide BUN Creatinine Glucose POC Glucose Lactic Acid Calcium Phosphorus Magnesium Iron TIBC Ferritin AST ALT Total Creatine Kinase Total Protein Albumin Vitamin B12 Folate TSH Free T4 CSF VDRL Lymph Enumerat CD4/CD8 Absolute CD3 Count % CD4 Cells Absolute CD4 Count % CD8 Cells Absolute CD19 Count T.pallidum Ab (FTA-ABS) HIV-1 RNA PCR copies/ml HIV-1 RNA (PCR) log Miscellaneous Test 09/23/18 09/23/18 09/23/18 08:10 08:10 23:57 WBC 1.3 L* RBC 3.53 L Hgb 9.9 L Hct 30.0 L RDW Plt Count 119 L Seg Neuts % (Manual) Lymphocytes % (Manual) Monocytes % (Manual) Eosinophils % (Manual) Basophils % (Manual) Nucleated RBC % Seg Neutrophils # Man Abs Lymphs (Manual) Lymphocytes # (Manual) PT INR APTT Heparin Anti-Xa Level POC ABG pH POC ABG pCO2 POC ABG pO2 Sodium Potassium Chloride Carbon Dioxide BUN Creatinine Glucose 122 H POC Glucose 115 H Lactic Acid Calcium 6.9 L Phosphorus Magnesium Iron TIBC Ferritin AST ALT Total Creatine Kinase Total Protein Albumin Vitamin B12 Folate TSH Free T4 CSF VDRL Lymph Enumerat CD4/CD8 Absolute CD3 Count % CD4 Cells Absolute CD4 Count % CD8 Cells Absolute CD19 Count T.pallidum Ab (FTA-ABS) HIV-1 RNA PCR copies/ml HIV-1 RNA (PCR) log Miscellaneous Test 09/24/18 09/24/18 09/24/18 12:04 14:42 18:10 WBC RBC Hgb Hct RDW Plt Count Seg Neuts % (Manual) Lymphocytes % (Manual) Monocytes % (Manual) Eosinophils % (Manual) Basophils % (Manual) Nucleated RBC % Seg Neutrophils # Man Abs Lymphs (Manual) Lymphocytes # (Manual) PT INR APTT Heparin Anti-Xa Level 0.76 H POC ABG pH POC ABG pCO2 POC ABG pO2 Sodium Potassium Chloride Carbon Dioxide BUN Creatinine Glucose POC Glucose 111 H 138 H Lactic Acid Calcium Phosphorus Magnesium Iron TIBC Ferritin AST ALT Total Creatine Kinase Total Protein Albumin Vitamin B12 Folate TSH Free T4 CSF VDRL Lymph Enumerat CD4/CD8 Absolute CD3 Count % CD4 Cells Absolute CD4 Count % CD8 Cells Absolute CD19 Count T.pallidum Ab (FTA-ABS) HIV-1 RNA PCR copies/ml HIV-1 RNA (PCR) log Miscellaneous Test 09/25/18 09/25/18 09/25/18 03:45 04:24 14:20 WBC RBC Hgb 9.7 L Hct 29.4 L RDW Plt Count 104 L Seg Neuts % (Manual) Lymphocytes % (Manual) Monocytes % (Manual) Eosinophils % (Manual) Basophils % (Manual) Nucleated RBC % Seg Neutrophils # Man Abs Lymphs (Manual) Lymphocytes # (Manual) PT INR APTT Heparin Anti-Xa Level POC ABG pH 7.460 H POC ABG pCO2 32.9 L POC ABG pO2 Sodium Potassium 3.5 L Chloride 110.3 H Carbon Dioxide BUN Creatinine Glucose 105 H POC Glucose Lactic Acid Calcium 6.7 L Phosphorus Magnesium Iron TIBC Ferritin AST 633 H ALT 481 H Total Creatine Kinase Total Protein 4.8 L D Albumin 1.9 L Vitamin B12 Folate TSH Free T4 CSF VDRL Lymph Enumerat CD4/CD8 Absolute CD3 Count % CD4 Cells Absolute CD4 Count % CD8 Cells Absolute CD19 Count T.pallidum Ab (FTA-ABS) HIV-1 RNA PCR copies/ml HIV-1 RNA (PCR) log Miscellaneous Test 09/26/18 09/26/18 09/26/18 06:15 06:15 10:43 WBC 1.2 L* RBC 3.32 L Hgb 9.2 L Hct 28.6 L RDW Plt Count 97 L Seg Neuts % (Manual) 24.0 L Lymphocytes % (Manual) 43.0 H Monocytes % (Manual) 19.0 H Eosinophils % (Manual) 8.0 H Basophils % (Manual) 2.0 H Nucleated RBC % 3.0 H Seg Neutrophils # Man 0.0 L Abs Lymphs (Manual) Lymphocytes # (Manual) 0.0 L PT INR APTT Heparin Anti-Xa Level POC ABG pH 7.459 H POC ABG pCO2 POC ABG pO2 141 H Sodium Potassium Chloride 112.8 H Carbon Dioxide BUN Creatinine Glucose 110 H POC Glucose Lactic Acid Calcium 7.0 L Phosphorus 0.90 L* Magnesium Iron TIBC Ferritin AST 362 H ALT 360 H Total Creatine Kinase Total Protein 4.9 L Albumin 1.5 L Vitamin B12 Folate TSH Free T4 CSF VDRL Lymph Enumerat CD4/CD8 Absolute CD3 Count % CD4 Cells Absolute CD4 Count % CD8 Cells Absolute CD19 Count T.pallidum Ab (FTA-ABS) HIV-1 RNA PCR copies/ml HIV-1 RNA (PCR) log Miscellaneous Test 09/26/18 09/27/18 09/28/18 13:56 04:11 07:49 WBC RBC Hgb 9.1 L Hct 29.1 L RDW Plt Count 96 L Seg Neuts % (Manual) Lymphocytes % (Manual) Monocytes % (Manual) Eosinophils % (Manual) Basophils % (Manual) Nucleated RBC % Seg Neutrophils # Man Abs Lymphs (Manual) Lymphocytes # (Manual) PT INR APTT Heparin Anti-Xa Level POC ABG pH POC ABG pCO2 POC ABG pO2 Sodium 146 H Potassium Chloride 111.6 H Carbon Dioxide BUN Creatinine Glucose POC Glucose 135 H Lactic Acid Calcium 7.4 L Phosphorus Magnesium Iron TIBC Ferritin AST ALT Total Creatine Kinase Total Protein Albumin Vitamin B12 Folate TSH Free T4 CSF VDRL Lymph Enumerat CD4/CD8 Absolute CD3 Count % CD4 Cells Absolute CD4 Count % CD8 Cells Absolute CD19 Count T.pallidum Ab (FTA-ABS) HIV-1 RNA PCR copies/ml HIV-1 RNA (PCR) log Miscellaneous Test 09/28/18 09/29/18 09/29/18 10:43 05:00 05:00 WBC 1.2 L* RBC 3.13 L Hgb 8.6 L Hct 27.3 L RDW Plt Count 137 L Seg Neuts % (Manual) Lymphocytes % (Manual) Monocytes % (Manual) 16.0 H Eosinophils % (Manual) Basophils % (Manual) Nucleated RBC % 4.0 H Seg Neutrophils # Man 0.5 L Abs Lymphs (Manual) Lymphocytes # (Manual) 0.3 L PT INR APTT Heparin Anti-Xa Level POC ABG pH 7.300 L POC ABG pCO2 53.9 H POC ABG pO2 Sodium 147 H Potassium 3.4 L Chloride 114.5 H Carbon Dioxide BUN Creatinine Glucose POC Glucose Lactic Acid Calcium 7.7 L Phosphorus Magnesium Iron TIBC Ferritin AST 69 H ALT 110 H Total Creatine Kinase Total Protein 5.2 L Albumin 1.9 L Vitamin B12 Folate TSH Free T4 CSF VDRL Lymph Enumerat CD4/CD8 Absolute CD3 Count % CD4 Cells Absolute CD4 Count % CD8 Cells Absolute CD19 Count T.pallidum Ab (FTA-ABS) HIV-1 RNA PCR copies/ml HIV-1 RNA (PCR) log Miscellaneous Test 09/29/18 09/29/18 09/30/18 06:07 13:22 05:19 WBC 0.9 L* RBC 3.03 L Hgb 8.6 L Hct 25.9 L RDW Plt Count Seg Neuts % (Manual) Lymphocytes % (Manual) Monocytes % (Manual) Eosinophils % (Manual) Basophils % (Manual) Nucleated RBC % Seg Neutrophils # Man Abs Lymphs (Manual) Lymphocytes # (Manual) PT INR APTT Heparin Anti-Xa Level POC ABG pH POC ABG pCO2 46.9 H POC ABG pO2 Sodium Potassium Chloride Carbon Dioxide BUN Creatinine Glucose POC Glucose 109 H Lactic Acid Calcium Phosphorus Magnesium Iron TIBC Ferritin AST ALT Total Creatine Kinase Total Protein Albumin Vitamin B12 Folate TSH Free T4 CSF VDRL Lymph Enumerat CD4/CD8 Absolute CD3 Count % CD4 Cells Absolute CD4 Count % CD8 Cells Absolute CD19 Count T.pallidum Ab (FTA-ABS) HIV-1 RNA PCR copies/ml HIV-1 RNA (PCR) log Miscellaneous Test 09/30/18 09/30/18 09/30/18 05:19 11:14 23:28 WBC RBC Hgb Hct RDW Plt Count Seg Neuts % (Manual) Lymphocytes % (Manual) Monocytes % (Manual) Eosinophils % (Manual) Basophils % (Manual) Nucleated RBC % Seg Neutrophils # Man Abs Lymphs (Manual) Lymphocytes # (Manual) PT INR APTT Heparin Anti-Xa Level 0.72 H POC ABG pH POC ABG pCO2 46.6 H POC ABG pO2 Sodium 150 H Potassium Chloride 115.2 H Carbon Dioxide BUN Creatinine Glucose POC Glucose Lactic Acid Calcium 7.9 L Phosphorus Magnesium Iron TIBC Ferritin AST ALT Total Creatine Kinase Total Protein Albumin Vitamin B12 Folate TSH Free T4 CSF VDRL Lymph Enumerat CD4/CD8 Absolute CD3 Count % CD4 Cells Absolute CD4 Count % CD8 Cells Absolute CD19 Count T.pallidum Ab (FTA-ABS) HIV-1 RNA PCR copies/ml HIV-1 RNA (PCR) log Miscellaneous Test 10/01/18 10/01/18 10/02/18 04:55 04:55 07:15 WBC 0.9 L* 0.7 L* RBC 3.01 L 2.92 L Hgb 8.4 L 8.4 L Hct 26.0 L 24.9 L RDW Plt Count Seg Neuts % (Manual) Lymphocytes % (Manual) Monocytes % (Manual) Eosinophils % (Manual) Basophils % (Manual) Nucleated RBC % Seg Neutrophils # Man Abs Lymphs (Manual) Lymphocytes # (Manual) PT INR APTT Heparin Anti-Xa Level POC ABG pH POC ABG pCO2 POC ABG pO2 Sodium 147 H Potassium 3.4 L Chloride 113.1 H Carbon Dioxide BUN 22 H Creatinine Glucose POC Glucose Lactic Acid Calcium 7.3 L Phosphorus Magnesium Iron TIBC Ferritin AST ALT Total Creatine Kinase Total Protein Albumin Vitamin B12 Folate TSH Free T4 CSF VDRL Lymph Enumerat CD4/CD8 Absolute CD3 Count % CD4 Cells Absolute CD4 Count % CD8 Cells Absolute CD19 Count T.pallidum Ab (FTA-ABS) HIV-1 RNA PCR copies/ml HIV-1 RNA (PCR) log Miscellaneous Test 10/02/18 10/03/18 10/03/18 07:15 06:12 06:12 WBC 0.8 L* RBC 2.96 L Hgb 8.5 L Hct 25.9 L RDW 15.4 H Plt Count Seg Neuts % (Manual) Lymphocytes % (Manual) Monocytes % (Manual) Eosinophils % (Manual) Basophils % (Manual) Nucleated RBC % Seg Neutrophils # Man Abs Lymphs (Manual) Lymphocytes # (Manual) PT INR APTT Heparin Anti-Xa Level POC ABG pH POC ABG pCO2 POC ABG pO2 Sodium Potassium 3.4 L 3.4 L Chloride 108.3 H Carbon Dioxide BUN Creatinine Glucose POC Glucose Lactic Acid Calcium 7.6 L 7.4 L Phosphorus Magnesium Iron TIBC Ferritin AST ALT Total Creatine Kinase Total Protein Albumin Vitamin B12 Folate TSH Free T4 CSF VDRL Lymph Enumerat CD4/CD8 Absolute CD3 Count % CD4 Cells Absolute CD4 Count % CD8 Cells Absolute CD19 Count T.pallidum Ab (FTA-ABS) HIV-1 RNA PCR copies/ml HIV-1 RNA (PCR) log Miscellaneous Test 10/03/18 10/03/18 10/04/18 11:45 13:23 01:40 WBC RBC Hgb Hct RDW Plt Count Seg Neuts % (Manual) Lymphocytes % (Manual) Monocytes % (Manual) Eosinophils % (Manual) Basophils % (Manual) Nucleated RBC % Seg Neutrophils # Man Abs Lymphs (Manual) Lymphocytes # (Manual) PT INR APTT Heparin Anti-Xa Level 1.34 H 0.26 L POC ABG pH POC ABG pCO2 POC ABG pO2 Sodium Potassium Chloride Carbon Dioxide BUN Creatinine Glucose POC Glucose Lactic Acid Calcium Phosphorus Magnesium 1.40 L Iron TIBC Ferritin AST ALT Total Creatine Kinase Total Protein Albumin Vitamin B12 Folate TSH Free T4 CSF VDRL Lymph Enumerat CD4/CD8 Absolute CD3 Count % CD4 Cells Absolute CD4 Count % CD8 Cells Absolute CD19 Count T.pallidum Ab (FTA-ABS) HIV-1 RNA PCR copies/ml HIV-1 RNA (PCR) log Miscellaneous Test 10/04/18 10/04/18 10/06/18 04:45 04:45 09:40 WBC 0.8 L* RBC 3.11 L Hgb 9.0 L Hct 27.4 L RDW 15.4 H Plt Count Seg Neuts % (Manual) Lymphocytes % (Manual) Monocytes % (Manual) Eosinophils % (Manual) Basophils % (Manual) Nucleated RBC % Seg Neutrophils # Man Abs Lymphs (Manual) Lymphocytes # (Manual) PT INR APTT Heparin Anti-Xa Level POC ABG pH POC ABG pCO2 POC ABG pO2 Sodium Potassium Chloride Carbon Dioxide BUN Creatinine 0.7 L Glucose POC Glucose Lactic Acid Calcium 7.5 L Phosphorus Magnesium Iron 35 L TIBC 157 L Ferritin AST ALT Total Creatine Kinase Total Protein Albumin Vitamin B12 Folate TSH Free T4 CSF VDRL Lymph Enumerat CD4/CD8 Absolute CD3 Count % CD4 Cells Absolute CD4 Count % CD8 Cells Absolute CD19 Count T.pallidum Ab (FTA-ABS) HIV-1 RNA PCR copies/ml HIV-1 RNA (PCR) log Miscellaneous Test 10/06/18 10/06/18 10/07/18 09:40 09:40 04:20 WBC 1.1 L* RBC 3.07 L Hgb 9.1 L Hct 27.3 L RDW 20.3 H Plt Count Seg Neuts % (Manual) Lymphocytes % (Manual) Monocytes % (Manual) Eosinophils % (Manual) Basophils % (Manual) Nucleated RBC % Seg Neutrophils # Man 0.7 L Abs Lymphs (Manual) Lymphocytes # (Manual) 0.3 L PT INR APTT Heparin Anti-Xa Level POC ABG pH POC ABG pCO2 POC ABG pO2 Sodium Potassium Chloride Carbon Dioxide BUN Creatinine Glucose POC Glucose Lactic Acid Calcium Phosphorus Magnesium Iron TIBC Ferritin 1126.0 H AST ALT Total Creatine Kinase Total Protein Albumin Vitamin B12 Folate 6.71 L TSH Free T4 CSF VDRL Lymph Enumerat CD4/CD8 Absolute CD3 Count % CD4 Cells Absolute CD4 Count % CD8 Cells Absolute CD19 Count T.pallidum Ab (FTA-ABS) HIV-1 RNA PCR copies/ml HIV-1 RNA (PCR) log Miscellaneous Test 10/07/18 10/07/18 10/09/18 04:20 15:38 04:20 WBC 1.1 L* RBC 3.35 L Hgb 9.9 L Hct 30.1 L RDW 21.4 H Plt Count Seg Neuts % (Manual) 19.0 L Lymphocytes % (Manual) 42.0 H Monocytes % (Manual) 18.0 H Eosinophils % (Manual) 15.0 H Basophils % (Manual) 2.0 H Nucleated RBC % Seg Neutrophils # Man 0.2 L Abs Lymphs (Manual) Lymphocytes # (Manual) 0.5 L PT INR APTT Heparin Anti-Xa Level POC ABG pH 7.516 H POC ABG pCO2 32.1 L POC ABG pO2 Sodium Potassium Chloride Carbon Dioxide BUN Creatinine 0.7 L Glucose POC Glucose Lactic Acid Calcium 7.9 L Phosphorus Magnesium Iron TIBC Ferritin AST ALT Total Creatine Kinase Total Protein 5.5 L Albumin 2.2 L Vitamin B12 Folate TSH Free T4 CSF VDRL Lymph Enumerat CD4/CD8 Absolute CD3 Count % CD4 Cells Absolute CD4 Count % CD8 Cells Absolute CD19 Count T.pallidum Ab (FTA-ABS) HIV-1 RNA PCR copies/ml HIV-1 RNA (PCR) log Miscellaneous Test 10/09/18 10/09/18 04:20 11:48 WBC RBC Hgb Hct RDW Plt Count Seg Neuts % (Manual) Lymphocytes % (Manual) Monocytes % (Manual) Eosinophils % (Manual) Basophils % (Manual) Nucleated RBC % Seg Neutrophils # Man Abs Lymphs (Manual) Lymphocytes # (Manual) PT INR APTT Heparin Anti-Xa Level POC ABG pH POC ABG pCO2 POC ABG pO2 Sodium Potassium Chloride Carbon Dioxide BUN 55 H Creatinine 3.8 H D Glucose POC Glucose 124 H Lactic Acid Calcium 8.3 L Phosphorus Magnesium Iron TIBC Ferritin AST ALT Total Creatine Kinase Total Protein Albumin Vitamin B12 Folate TSH Free T4 CSF VDRL Lymph Enumerat CD4/CD8 Absolute CD3 Count % CD4 Cells Absolute CD4 Count % CD8 Cells Absolute CD19 Count T.pallidum Ab (FTA-ABS) HIV-1 RNA PCR copies/ml HIV-1 RNA (PCR) log Miscellaneous Test Allied health notes reviewed: RT
--- NOTE | 2018-10-09 17:12 | Event Note ---
Date: 10/09/18 Patient with reported seizures MRI of the brain ordered him just been informed that we do not do MRI's on the weekends PLAN: 1. begin Keppra 750 mg IV every 12 hours 2. get a stat CT of the brain to rule out acute bleedingor other pathology (non- contrast) 3. care plan discussed with nurse
[2018-10-09 17:58] LABS: Calcium 8.2 mg/dL (8.4-10.2)
--- NOTE | 2018-10-09 18:50 | Cat Scan Report ---
FINAL REPORT PROCEDURE: CT HEAD/BRAIN WO CON TECHNIQUE: Computerized tomography of the head was performed without contrast material. HISTORY: Seizures COMPARISON: Prior CT scan of the brain 09/12/2018 FINDINGS: Brain: There is no evidence of intracranial hemorrhage. No parenchymal hemorrhage is seen. No mass lesions or mass effect is identified. No abnormal extra-axial fluid collections or masses are seen. There is some decreased density seen in the periventricular white matter without mass effect. This i s fairly symmetric and does not exhibit any mass effect consistent with gliosis probably on the basis of microvascular disease or white matter changes of aging. Ventricles: The ventricles, sulcal pattern and fissures are prominent consistent with atrophy. Bones: No evidence of acute fracture. Moderate size scalp hematoma seen left occipital region. Paranasal sinuses: There are low-density nodules visualized in the sphenoid sinuses also partially vi sualized in the left maxillary sinus. There is mild mucosal thickening in the right maxillary sinus. The appearance suggest mucous retention cyst and/or polyps. Mastoid air cells: There is new opacification of multiple mastoid air cells on the right and a few on the left inferiorly. IMPRESSION: There is mild atrophy. No acute intracranial abnormalities are seen. Paranasal sinus disease as described. There is new opacification of multiple mastoid air cells on the right and a few on the left suggestin g acute mastoiditis.
[2018-10-09] MEDS: TRANSDERM-SCOP TD SCH (19:08)
--- NOTE | 2018-10-09 19:50 | XRay Report ---
FINAL REPORT EXAM: XR CHEST 1V AP HISTORY: aspiration TECHNIQUE: AP portable view of the chest. PRIORS: None. FINDINGS: There is an endotracheal tube in place which appears adequately positioned in the mid to distal trach ea. There is a right arm PICC line in place with the tip in the distal SVC. There is a feeding tube i n place with the tip in the stomach. The cardiomediastinal silhouette appears normal. The lungs are clear. The bones and soft tissues are unremarkable. IMPRESSION: No evidence of acute cardiopulmonary disease.
[2018-10-09] MEDS: KEPPRA 750 MG in NACL 0.9% 100 ML IV SCH (21:26)
[2018-10-10] MEDS ORDERED: QUELICIN ONE (00:35)
[2018-10-10] MEDS ORDERED: AMIDATE IV ONE (00:35)
[2018-10-10] MEDS: ROBINUL PO SCH ×4 (00:46→18:42)
[2018-10-10] MEDS: CYTOVENE 500 MG in NACL 0.9% 250ML 250 ML IV SCH (00:47)
--- NOTE | 2018-10-10 00:47 | Event Note ---
Date: 10/10/18 I was asked to evaluate this patient for reintubation. The patient was previously intubated by respiratory feels that the tube has come out as the patient is not getting much tidal volume or ventilation. Also there is no color change with capnography. Patient does not appear to have any hypoxia. The nurse and respiratory therapist said that the patient has been having copious secretions. The decision was made to change out the endotracheal tubes. The patient did have some spontaneous eye opening and therefore he was given RSI with 20 mg of etomidate and 100 mg of succinylcholine. After these agents were given, the previous endotracheal tube was removed. A glydescope was used to visualize the vocal cords. An 8.0 endotracheal tube was placed through the cords to about 26 cm at the lips. The bulb was inflated with about 8 mL of air. Patient had condensation within the tube, good color change capnography, and bilateral breath sounds. No obvious complications from this procedure. A post intubation x-ray will be ordered.
--- NOTE | 2018-10-10 02:32 | XRay Report ---
FINAL REPORT EXAM: XR CHEST 1V AP HISTORY: ORAL ET PLACEMENT TECHNIQUE: AP portable view of the chest. PRIORS: 12/03/2018 FINDINGS: There is a right arm PICC line in place with the tip in the distal SVC. There is a feeding tube in pl gutierrez with the tip in the stomach. The cardiomediastinal silhouette appears normal. The lungs are clear . The bones and soft tissues are unremarkable. IMPRESSION: Stable chest
[2018-10-10] MEDS: PROVENTIL IH SCH ×4 (03:50→20:21)
[2018-10-10] MEDS: LOPRESSOR IV SCH ×2 (05:22→09:25)
[2018-10-10] MEDS: HEPARIN SUB-Q SCH ×3 (05:22→22:06)
[2018-10-10] MEDS: SYNTHROID PO SCH (05:22)
--- NOTE | 2018-10-10 07:27 | Hem/Onc Progress Note ---
Assessment and Plan 1. Leukopenia. ANC is 0.5. Neutropenic precaution is practical. 2. Anemia. We will investigate. 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 HAART has been started. At this time, there is no fever. 3. Human immunodeficiency virus, on HAART. 4. 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 5. Intubated. 6. On antibiotics for pneumonia. 7. History of ____ that is improved. 8. Looks at you, but does not communicate. 9. History of oral candidiasis. 10. Mention of giardiasis. 11. Encephalopathy. 12. RVR with atrial fibrillation. I will follow the patient during inpatient stay. At this time, his cytopenia is likely secondary to the HIV or the CMV. I will discuss with ID team to see if G-CSF support is an option. 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 Objective - Exam Narrative Exam: on vent - non communicative - Constitutional Vitals: Last Vital Signs Temp 100.9 F H 10/10/18 04:00 Pulse 104 H 10/10/18 06:00 Resp 19 10/10/18 06:00 BP 134/76 10/10/18 06:00 Pulse Ox 100 10/10/18 06:00 General appearance: no acute distress Performance status: 4-completely disabled - EENT ENT: other (intubated) Lymph node exam: negative cervical - Respiratory Respiratory effort: Positive: other (on vent) Respiratory: bilateral: diminished (anteriorly) - Cardiovascular Heart Sounds: Present: S1 & S2 Extremity abnormal: edema - Gastrointestinal General gastrointestinal: Present: soft Rectal Exam: deferred - Genitourinary Male genitourinary: Present: deferred - Integumentary Integumentary: warm - Musculoskeletal Musculoskeletal: generalized weakness - Neurologic Neurologic: other (on vent - non communicative) - Labs Lab Results: Laboratory Results - last 24 hr 10/09/18 10/09/18 10/09/18 04:20 11:48 17:31 Add Manual Diff Complete Total Counted 100 Seg Neuts % (Manual) 19.0 L Band Neutrophils % 1.0 Lymphocytes % (Manual) 42.0 H Reactive Lymphs % (Man) 3.0 Monocytes % (Manual) 18.0 H Eosinophils % (Manual) 15.0 H Basophils % (Manual) 2.0 H Metamyelocytes % 0 Myelocytes % 0 Promyelocytes % 0 Blast Cells % 0 Nucleated RBC % Not Reportable Seg Neutrophils # Man 0.2 L Band Neutrophils # 0.0 Lymphocytes # (Manual) 0.5 L Abs React Lymphs (Man) 0.0 Monocytes # (Manual) 0.2 Eosinophils # (Manual) 0.2 Basophils # (Manual) 0.0 Metamyelocytes # 0.0 Myelocytes # 0.0 Promyelocytes # 0.0 Blast Cells # 0.0 WBC Morphology Not Reportable Hypersegmented Neuts Not Reportable Hyposegmented Neuts Not Reportable Hypogranular Neuts Not Reportable Smudge Cells Not Reportable Toxic Granulation Not Reportable Toxic Vacuolation Not Reportable Dohle Bodies Not Reportable Pelger-Huet Anomaly Not Reportable Giovanna Rods Not Reportable Platelet Estimate Consistent w auto Clumped Platelets Not Reportable Plt Clumps, EDTA Not Reportable Large Platelets Not Reportable Giant Platelets Not Reportable Platelet Satelliting Not Reportable Plt Morphology Comment Not Reportable RBC Morphology Not Reportable Dimorphic RBCs Not Reportable Polychromasia Not Reportable Hypochromasia 2+ Poikilocytosis Not Reportable Anisocytosis 1+ Microcytosis Not Reportable Macrocytosis 1+ Spherocytes Not Reportable Pappenheimer Bodies Not Reportable Sickle Cells Not Reportable Target Cells Not Reportable Tear Drop Cells Not Reportable Ovalocytes 1+ Helmet Cells Not Reportable [place] Bodies Not Reportable Holly Rings Not Reportable [place] Cells Not Reportable Bite Cells Not Reportable Crenated Cell Not Reportable Elliptocytes Few Acanthocytes (Spur) Not Reportable Rouleaux Not Reportable Hemoglobin C Crystals Not Reportable Schistocytes Not Reportable Malaria parasites Not Reportable Kieran Bodies Not Reportable Hem Pathologist Commnt No Sodium 139 Potassium 5.4 H Chloride 101.0 Carbon Dioxide 21 L Anion Gap 22 BUN 72 H Creatinine 4.5 H Estimated GFR 18 BUN/Creatinine Ratio 16 Glucose 118 H POC Glucose 124 H Calcium 8.2 L 10/10/18 10/10/18 00:04 05:16 Add Manual Diff Total Counted Seg Neuts % (Manual) Band Neutrophils % Lymphocytes % (Manual) Reactive Lymphs % (Man) Monocytes % (Manual) Eosinophils % (Manual) Basophils % (Manual) Metamyelocytes % Myelocytes % Promyelocytes % Blast Cells % Nucleated RBC % Seg Neutrophils # Man Band Neutrophils # Lymphocytes # (Manual) Abs React Lymphs (Man) Monocytes # (Manual) Eosinophils # (Manual) Basophils # (Manual) Metamyelocytes # Myelocytes # Promyelocytes # Blast Cells # WBC Morphology Hypersegmented Neuts Hyposegmented Neuts Hypogranular Neuts Smudge Cells Toxic Granulation Toxic Vacuolation Dohle Bodies Pelger-Huet Anomaly Giovanna Rods Platelet Estimate Clumped Platelets Plt Clumps, EDTA Large Platelets Giant Platelets Platelet Satelliting Plt Morphology Comment RBC Morphology Dimorphic RBCs Polychromasia Hypochromasia Poikilocytosis Anisocytosis Microcytosis Macrocytosis Spherocytes Pappenheimer Bodies Sickle Cells Target Cells Tear Drop Cells Ovalocytes Helmet Cells [place] Bodies Holly Rings Dioni Cells Bite Cells Crenated Cell Elliptocytes Acanthocytes (Spur) Rouleaux Hemoglobin C Crystals Schistocytes Malaria parasites Kieran Bodies Hem Pathologist Commnt Sodium Potassium Chloride Carbon Dioxide Anion Gap BUN Creatinine Estimated GFR BUN/Creatinine Ratio Glucose POC Glucose 101 74 Calcium Medications & Allergies - Medications Allergies/Adverse Reactions: Allergies No Known Allergies Allergy (Unverified 09/11/18 17:50) Home Medications: Home Medications Medication Instructions Recorded Confirmed Last Taken Type No Known Home Medications [No 10/02/18 10/02/18 Unknown History Reported Home Medications] Active Medications: Generic Name Dose Route Start Last Admin Trade Name Freq PRN Reason Stop Dose Admin Acetaminophen 650 mg 09/11/18 19:30 10/09/18 16:32 Tylenol PO 650 mg Q4H PRN Administration Pain MILD(1-3)/Fever >100.5/RIVERA Acetaminophen 650 mg 09/21/18 07:39 10/07/18 21:15 Tylenol AR 650 mg Q4H PRN Administration Fever >101 Albuterol 2.5 mg 09/11/18 19:30 09/16/18 06:09 Proventil IH 2.5 mg Q4HRT PRN Administration Shortness Of Breath Albuterol 2.5 mg 09/20/18 20:00 10/10/18 03:50 Proventil IH 2.5 mg Q6HRT GIA Administration Amiodarone HCl 200 mg 09/27/18 15:00 10/09/18 21:27 Cordarone PO 200 mg BID GIA Administration Lipase/Protease/Amylase 1 each 09/30/18 12:01 Pancrealen Gibbs 10,500 Unit FEEDTUBE PRN PRN For Clogged Feeding Tube Atovaquone 750 mg 09/21/18 10:00 10/09/18 21:27 Mepron PO 750 mg BID GIA Administration Azithromycin 1,200 mg 09/25/18 10:00 10/09/18 10:44 Zithromax PO 1,200 mg Walters GIA Administration Emtricitabine 200 mg 09/30/18 11:30 10/09/18 10:44 Emtriva PO 200 mg QDAY GIA Administration Famotidine 20 mg 09/24/18 10:00 10/09/18 21:27 Pepcid PO 20 mg BID GIA Administration Fluconazole 200 mg 10/05/18 12:00 10/09/18 10:44 Diflucan PO 200 mg QDAY GIA Administration Folic Acid 1 mg 10/07/18 10:00 10/09/18 10:49 Folvite PO 1 mg QDAY GIA Administration Glycopyrrolate 2 mg 10/07/18 18:00 10/10/18 05:22 Robinul PO 2 mg Q6HR GIA Administration Heparin Sodium (Porcine) 5,000 unit 10/05/18 14:00 10/10/18 05:22 Heparin SUB-Q 5,000 unit Q8HR GIA Administration Hydrophilic Ointment 1 applic 09/21/18 01:46 09/22/18 03:46 Vaseline Lip Therapy TP 1 applic Q2HR PRN Administration Dry Lips Ganciclovir Sodium 500 mg/ 250 mls @ 100 mls/hr 09/23/18 13:00 10/10/18 00:47 Sodium Chloride IV 100 mls/hr Q12H GIA Administration Levetiracetam 750 mg/ Sodium 107.5 mls @ 400 mls/hr 10/09/18 20:00 10/09/18 21:26 Chloride IV 400 mls/hr Q12H GIA Administration Levothyroxine Sodium 25 mcg 09/19/18 06:00 10/10/18 05:22 Synthroid PO 25 mcg DAILY@0600 GIA Administration Metoprolol Tartrate 5 mg 09/21/18 03:00 10/10/18 05:22 Lopressor IV 5 mg Q6H GIA Administration Multi-Ingred Cream/Lotion/Oil/Oint 1 applic 09/21/18 01:46 Artificial Tears Ophth Oint OU Q4HR PRN Dry Eye(s) Ondansetron HCl 4 mg 09/11/18 19:30 Zofran IV Q8H PRN Nausea And Vomiting Scopolamine 1 each 09/18/18 18:00 10/09/18 19:08 Transderm-Scop TD 1 each Q3D GIA Administration Simple Syrup 15 ml 09/30/18 12:01 10/07/18 06:18 Simple Syrup FEEDTUBE 15 ml PRN PRN Administration Hypoglycemia Simple Syrup 30 ml 09/30/18 12:01 Simple Syrup FEEDTUBE PRN PRN Hypoglycemia Sodium Bicarbonate 325 mg 09/30/18 12:01 Sodium Bicarbonate FEEDTUBE PRN PRN For Clogged Feeding Tube Sodium Chloride 10 ml 09/11/18 22:00 10/09/18 21:28 Sodium Chloride Flush Syringe 10 Ml IV 10 ml BID GIA Administration Sodium Chloride 10 ml 09/11/18 19:30 Sodium Chloride Flush Syringe 10 Ml IV PRN PRN LINE FLUSH Tbo-Filgrastim 480 mcg 10/09/18 10:00 10/09/18 11:04 Granix SUB-Q 10/10/18 23:59 480 mcg DAILY GIA Administration Tenofovir Disoproxil Fumarate 300 mg 09/30/18 11:30 10/09/18 10:44 Viread PO 300 mg QDAY GIA Administration
[2018-10-10] MEDS: KEPPRA 750 MG in NACL 0.9% 100 ML IV SCH (08:27)
[2018-10-10 08:45] LABS: INR 1.2 (0.87-1.13)
[2018-10-10 09:04] LABS: Hematocrit 28.8 % (35.5-45.6); Hemoglobin 9.6 gm/dl (11.8-15.2); Mean Corpuscular HGB Conc 33 % (32-34); Mean Corpuscular Volume 91 fl (84-94); Platelet Count 245 K/mm3 (140-440); Red Blood Count 3.16 M/mm3 (3.65-5.03)
--- NOTE | 2018-10-10 09:08 | Progress Note ---
Assessment and Plan Cultures: 09/11/2018 blood culture: no growth 09/13/2018 serum cryptococcus ag neg 09/14/2018 CSF cryptococcus ag neg 09/14/2018 stool Nona 09/15/2018 stool +Giardia ag 09/19/2018 CSF cryptococcus ag neg 09/21/2018 tracheal aspirate culture: Nona albicans 09/23/2018 blood culture: No growth 09/23/2018 Fungal blood culture: no growth thus far 10/09/2018 blood culture: No growth A/P: 33 y/o male with no PMH; admitted on 09/11/2018 due to 4 days-AMS/behavioral changes, nausea, vomiting, diarrhea, weight loss and cough: 1) Low grade fevers: continues since 10/08 ? likely IRIS related (ART started on 09/30). shock resolved. Completed 10 days of Ceftriaxone, off since 10/03/2018. 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 WBC remains low could be from CMV v/s ganciclovir. Clinically better - CMV DNA PCR 09/16/2018 is 1,058,978, 6 log - CMV DNA PCR 09/26/2018 is 710K, 5.85 log - CMV DNA PCR 10/03/2018 is 262K, 5.4 log 3) Acute respiratory failure: still on the vent, mainly due to mental status issues. PJP DFA negative. CXR stable without pneumonia. 4) Acute encephalopathy: NOT better; possibly from neurosyphilis v/s CMV encephalitis v/s metabolic etiology. Of note, MRI did not show ventriculitis. CSF YAYO virus DNA PCR neg. Toxo IgG negative. He has received 20 days of Pen G IV and Ganciclovir with minimal improvement, still somnolent and nystagmus noted ? neurosyphilis treatement failure ? other etiologies like metabolic, CVA. Discussed with neuro Dr Nazario EEG x 2 no epileptic activity - "Up to 4 EEGs over several months may be needed to capture interictal epileptiform activity". 5) Neurosyphilis: CSF VDRL positive, off Ceftriaxone and back on IV Penicillin (will complete 21 days). 6) Diarrhea: likely due to Giardiasis as Giardia antigen positive in stool, in immunocompromised patient. Completed several days of Flagyl, stopped on 09/16. 7) Oral candidiasis: on fluconazole, will need to continue as prophylaxis till immune reconstitution. 8) A.fib: cardiology following. On Amiodarone. 9) HIV/AIDS: newly diagnosed. Risk factor is MSM behavior. CD4=4. VL=50,700. 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 We started him on Tenofovir, Emtricitabine + Dolutegravir on 09/30/2018, watch closely for IRIS. 10) Neutropenia: likely from HIV/CMV myelosuppression. Also probably worse from ganciclovir. r/o disseminated MAC, thus far cultures negative. s/p neupogen 1 dose on 10/05/2018 11) MAL: worsening Recs: - renal consult - f/u repeat blood cultures in light of fever - will repeat LP and brain MRI tomorrow- in light of persistent AMS. Consent signed for LP, CSF labs ordered - completed IV Penicillin G 24 million units daily for 21 days on 10/08/2018 - continue IV Ganciclovir 5 mg/kg q12 hrs - renally adjusted today, continue till CMV PCR is <200 - will repeat CMV DNA PCR on 10/17/2018 - continue atovaquone and azithromycin prophylaxis - continue fluconazole 200 mg daily PO as prophylaxis - continue HAART: Tenofovir, Emtricitabine + Dolutegravir watch closely for IRIS - renally adjusted today - monitor daily CBC, BMP - s/p neupogen 1 dose on 10/05/2018, hematology on board now, agree with additional Neupogen as needed from ID standpoint Will follow Alayna Menendez MD Infectious Diseases [employer] [facility] M [phone] O [phone] Subjective Date of service: 10/10/18 Principal diagnosis: AMS Interval history: Patient remains alert but not following commands, intubated on AC overnight now CPAP, open eyes, Spiking fever 100.9 ROS: unable to obtain Objective - Exam Narrative Exam: Constitutional: Intubated alert no follows commands open eyes in NAD Head, Ears, Nose: Normocephalic, atraumatic. External ears, nose normal Eyes: Conjunctivae/corneas clear. No icterus. No ptosis. +lateral nystagmus Neck:no JVD, left anterior neck large hard nodule non tender Oral: ETT, OGT Cardiovascular: tachycardic Respiratory: distant BS GI: Soft, non-tender; bowel sounds normal. No peritoneal signs Musculoskeletal: No pedal edema, no cyanosis. Skin: No rash or abscess. Hem/Lymphatic: No palpable cervical or supraclavicular nodes. No lymphangitis Psych: alert Neurological: alert, moves right hand, does not move left hand PICC line 2/6 - Constitutional Vitals: Vital Signs Temp Pulse Resp BP Pulse Ox 100.9 F H 108 H 21 129/64 99 10/10/18 04:00 10/10/18 07:55 10/10/18 07:55 10/10/18 07:32 10/10/18 07:32 Temperature -Last 24 Hours Temperature 100.9 F Temperature 100.8 F Temperature 100.9 F Temperature 100.8 F Temperature 100.0 F - Labs CBC & Chem 7: 10/09/18 04:20 10/09/18 17:31 Labs: Abnormal lab results 10/09/18 10/09/18 10/09/18 Range/Units 04:20 11:48 17:31 Seg Neuts % (Manual) 19.0 L (40.0-70.0) % Lymphocytes % (Manual) 42.0 H (13.4-35.0) % Monocytes % (Manual) 18.0 H (0.0-7.3) % Eosinophils % (Manual) 15.0 H (0.0-4.3) % Basophils % (Manual) 2.0 H (0.0-1.8) % Seg Neutrophils # Man 0.2 L (1.8-7.7) K/mm3 Lymphocytes # (Manual) 0.5 L (1.2-5.4) K/mm3 PT (12.2-14.9) Sec. INR (0.87-1.13) Potassium 5.4 H (3.6-5.0) mmol/L Carbon Dioxide 21 L (22-30) mmol/L BUN 72 H (9-20) mg/dL Creatinine 4.5 H (0.8-1.5) mg/dL Glucose 118 H (75-100) mg/dL POC Glucose 124 H (70-105) Calcium 8.2 L (8.4-10.2) mg/dL 10/10/18 Range/Units 08:09 Seg Neuts % (Manual) (40.0-70.0) % Lymphocytes % (Manual) (13.4-35.0) % Monocytes % (Manual) (0.0-7.3) % Eosinophils % (Manual) (0.0-4.3) % Basophils % (Manual) (0.0-1.8) % Seg Neutrophils # Man (1.8-7.7) K/mm3 Lymphocytes # (Manual) (1.2-5.4) K/mm3 PT 16.0 H (12.2-14.9) Sec. INR 1.20 H (0.87-1.13) Potassium (3.6-5.0) mmol/L Carbon Dioxide (22-30) mmol/L BUN (9-20) mg/dL Creatinine (0.8-1.5) mg/dL Glucose (75-100) mg/dL POC Glucose (70-105) Calcium (8.4-10.2) mg/dL
[2018-10-10 09:09] LABS: Red Cell Distribution Width 21.2 % (13.2-15.2)
[2018-10-10] MEDS: FOLVITE PO SCH (09:25)
[2018-10-10] MEDS: PEPCID PO SCH (09:25)
[2018-10-10] MEDS: DIFLUCAN PO SCH (09:26)
[2018-10-10] MEDS: TIVICAY PO SCH (09:26)
[2018-10-10] MEDS: CORDARONE PO SCH ×2 (09:26→22:06)
[2018-10-10] MEDS: MEPRON PO SCH ×2 (09:27→22:06)
[2018-10-10] MEDS: SODIUM CHLORIDE FLUSH SYRINGE 10 ML IV SCH (09:29)
[2018-10-10] MEDS ORDERED: CYTOVENE IV SCH (10:00)
[2018-10-10] MEDS ORDERED: .VANCOMYCIN VIAL 1,000 MG in NACL 0.9% 100 ML IV SCH (10:00)
[2018-10-10] MEDS ORDERED: NACL 0.9% IV SCH (10:00)
[2018-10-10] MEDS: GRANIX SUB-Q SCH (10:08)
[2018-10-10 10:09] LABS: Myelocytes # (Manual) 0.1 K/mm3; Total Cells Counted 100
[2018-10-10 10:10] LABS: Anisocytosis 1+; Hypochromasia Few; Macrocytosis 1+; Ovalocytes 1+; Platelet Estimate Consistent w Auto; Poikilocytosis 1+
--- NOTE | 2018-10-10 10:20 | Progress Note ---
Assessment and Plan - Patient Problems (1) Acute respiratory failure Current Visit: Yes Status: Acute Qualifiers: Respiratory failure complication: hypoxia Qualified Code(s): J96.01 - Acute respiratory failure with hypoxia Plan to address problem: Pt scheduled for trach/PEG tomorrow. Discussed with Dr. Ozzy Coppola to proceed tomorrow. With worsening renal function, will order DDAVP before procedure to minimize risk of bleeding. Signed consent on chart. Time=15min Subjective Date of service: 10/10/18 Narrative: Pt had to have the ETT replaced last night. There is concern for a recent seizure. Renal function is worsening. Objective Vital Signs - 12hr 10/09/18 10/09/18 10/09/18 22:55 23:00 23:01 Temperature Pulse Rate 111 H 113 H 113 H Pulse Rate [ Throughout] Respiratory 18 23 20 Rate Respiratory Rate [ Throughout] Blood Pressure 106/50 116/70 116/70 O2 Sat by Pulse 98 98 98 Oximetry 10/10/18 10/10/18 10/10/18 00:00 00:43 01:00 Temperature 100.8 F H Pulse Rate 112 H 109 H 111 H Pulse Rate [ Throughout] Respiratory 20 21 Rate Respiratory Rate [ Throughout] Blood Pressure 126/64 137/73 105/52 O2 Sat by Pulse 99 100 100 Oximetry 10/10/18 10/10/18 10/10/18 02:00 03:00 03:51 Temperature Pulse Rate 115 H 111 H Pulse Rate [ 110 H Throughout] Respiratory 21 20 Rate Respiratory 24 Rate [ Throughout] Blood Pressure 119/69 133/66 O2 Sat by Pulse 100 100 Oximetry 10/10/18 10/10/18 10/10/18 03:53 04:00 04:06 Temperature 100.9 F H Pulse Rate 112 H 109 H Pulse Rate [ 112 H Throughout] Respiratory 17 Rate Respiratory 24 Rate [ Throughout] Blood Pressure 133/66 134/63 O2 Sat by Pulse 100 100 Oximetry 10/10/18 10/10/18 10/10/18 05:01 05:22 06:00 Temperature Pulse Rate 114 H 110 H 104 H Pulse Rate [ Throughout] Respiratory 30 H 19 Rate Respiratory Rate [ Throughout] Blood Pressure 124/74 124/74 134/76 O2 Sat by Pulse 100 100 Oximetry 10/10/18 10/10/18 10/10/18 07:32 07:38 07:55 Temperature Pulse Rate 108 H Pulse Rate [ 109 H 108 H Throughout] Respiratory Rate Respiratory 25 H 21 Rate [ Throughout] Blood Pressure 129/64 O2 Sat by Pulse 99 Oximetry 10/10/18 09:25 Temperature Pulse Rate 110 H Pulse Rate [ Throughout] Respiratory Rate Respiratory Rate [ Throughout] Blood Pressure 130/68 O2 Sat by Pulse Oximetry - General physical appearance no distress, other (awake, but not interactive) - Neck other (no signs of infection, swelling) - Respiratory normal expansion, normal respiratory effort, other (minimal vent settings) - Abdomen soft, not tender, not distended - Labs 10/10/18 08:35 10/10/18 10:54 Diabetes panel 10/09/18 Range/Units 17:31 Sodium 139 (137-145) mmol/L Potassium 5.4 H (3.6-5.0) mmol/L Chloride 101.0 (98-107) mmol/L Carbon Dioxide 21 L (22-30) mmol/L BUN 72 H (9-20) mg/dL Creatinine 4.5 H (0.8-1.5) mg/dL Glucose 118 H (75-100) mg/dL Calcium 8.2 L (8.4-10.2) mg/dL Calcium panel 10/09/18 Range/Units 17:31 Calcium 8.2 L (8.4-10.2) mg/dL Pituitary panel 10/09/18 Range/Units 17:31 Sodium 139 (137-145) mmol/L Potassium 5.4 H (3.6-5.0) mmol/L Chloride 101.0 (98-107) mmol/L Carbon Dioxide 21 L (22-30) mmol/L BUN 72 H (9-20) mg/dL Creatinine 4.5 H (0.8-1.5) mg/dL Glucose 118 H (75-100) mg/dL Calcium 8.2 L (8.4-10.2) mg/dL Adrenal panel 10/09/18 Range/Units 17:31 Sodium 139 (137-145) mmol/L Potassium 5.4 H (3.6-5.0) mmol/L Chloride 101.0 (98-107) mmol/L Carbon Dioxide 21 L (22-30) mmol/L BUN 72 H (9-20) mg/dL Creatinine 4.5 H (0.8-1.5) mg/dL Glucose 118 H (75-100) mg/dL Calcium 8.2 L (8.4-10.2) mg/dL
--- NOTE | 2018-10-10 10:27 | Event Note ---
Patient is already being followed by Dr. Wellington smith Will take him off my list
[2018-10-10] MEDS ORDERED: XYLOCAINE 1% 20 mL ONE (10:31)
[2018-10-10] MEDS ORDERED: VANCOMYCIN PHARMACY TO DOSE IV SCH (11:00)
[2018-10-10 11:27] LABS: Calcium 8.4 mg/dL (8.4-10.2)
[2018-10-10] MEDS ORDERED: VANCOMYCIN 1,250 MG in NACL 0.9% 250ML 250 ML IV ONE (12:00)
[2018-10-10] MEDS ORDERED: KIONEX PO ONE (13:00)
--- NOTE | 2018-10-10 14:45 | Progress Note ---
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) Elevated LFTs Neutropenia Thrombocytopenia (His mental status remains the rate limiting step to safe extubation for now) - awaiting tracheostomy - Nephrology evaluation ongoing (input appreciated; still non-oliguric) - Trach / PEG in am - CT Brain negative for acute bleed - for Lumbar puncture today - for MRI today - 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 - continue Robinul & scopolamine for secretion control (increased Robinul to q6h) - continue to hold all other sedating medications - will continue daytime SBT's for now while following mental status - continue anti-infective's per ID recs (ART has been started appropriately) - reglan stopped - continue supplemental oxygen to keep sats > 90% - continue bronchodilators with pulmonary hygiene per RT - Continue empiric and targeted anti-infective's per ID recs antibiotics per ID - continue set rate at 12/min - continue daily SBT's - daily SAT's once sedation resumed - continue IV heparin for NSTEMI - continue Robinul 2 mg q8h for secretions - IV amiodarone stopped - cardiology evaluation ongoing - diarrhea improved - continue fluconazole for candidiasis - watch for drug-drug interactions - continue enteral nutrition as tolerated - when resumed target sedation for RASS 0 to -1 - PT/OT/ROM exercises as tolerated - mobility protocol for pressure ulcer prophylaxis - continue GI & VTE prophylaxis - continue other care per attending / other consultants ...... re-evaluate in am & prn ..... care plan discussed with relative who will be here for his trach/peg on and all pertinent question were answered as best i could The high probability of a clinically significant, sudden or life threatening deterioration of the [cardiac, respiratory and neurologic] system(s) required my full and direct attention, intervention and personal management. The aggregate critical care time was [35] minutes. This time is in addition to time spent performing reported procedures but includes the following: [x] Data Review and interpretation [x] Patient assessment and monitoring of vital signs [x] Documentation [x] Medication orders and management Subjective Date of service: 10/10/18 Principal diagnosis: Severe sepsis; Ac hypoxemic Resp failure; [place]. Pneumonia; Ac encephalopathy Interval history: Patient is seen today for: Severe sepsis (present on admission with fever, tachycardia, hypotension and elevated lactate); Acute hypoxemic Respiratory failure; Bilateral pneumonia; Acute encephalopathy (Toxic / Metabolic); Atrial Fibrillation with RVR Seen and examined at bedside; 24hour events reviewed; nursing and respiratory care staff consulted; no adverse overnight events reported to me; relative visiting; remains on MVS; azotemia is worsening; AMS is persistent but fleeting episodes of responsiveness with head nod's; No gross bleeding; tolerating PSV trials tenuously Objective Vital Signs - 12hr 10/10/18 10/10/18 10/10/18 03:00 03:51 03:53 Temperature Pulse Rate 111 H 112 H Pulse Rate [ 110 H Throughout] Respiratory 20 Rate Respiratory 24 Rate [ Throughout] Blood Pressure 133/66 133/66 O2 Sat by Pulse 100 100 Oximetry 10/10/18 10/10/18 10/10/18 04:00 04:06 05:01 Temperature 100.9 F H Pulse Rate 109 H 114 H Pulse Rate [ 112 H Throughout] Respiratory 17 30 H Rate Respiratory 24 Rate [ Throughout] Blood Pressure 134/63 124/74 O2 Sat by Pulse 100 100 Oximetry 10/10/18 10/10/18 10/10/18 05:22 06:00 07:32 Temperature Pulse Rate 110 H 104 H 108 H Pulse Rate [ Throughout] Respiratory 19 Rate Respiratory Rate [ Throughout] Blood Pressure 124/74 134/76 129/64 O2 Sat by Pulse 100 99 Oximetry 10/10/18 10/10/18 10/10/18 07:38 07:55 09:25 Temperature Pulse Rate 110 H Pulse Rate [ 109 H 108 H Throughout] Respiratory Rate Respiratory 25 H 21 Rate [ Throughout] Blood Pressure 130/68 O2 Sat by Pulse Oximetry Constitutional: lethargic, agitated, appears uncomfortable, other (orally intubated ETT at 23cm) Eyes: non-icteric ENT: oropharynx moist, other (ETT 25 cm NIKA) Neck: supple, no lymphadenopathy, other (no thyromegaly) Effort: normal Ascultation: Bilateral: rales, rhonchi (scant) Percussion: Bilateral: not dull Cardiovascular: regular rate and rhythm, other (S1,S2, no murmurs, gallps or rubs) Gastrointestinal: normoactive bowel sounds, soft, non-tender, non-distended Integumentary: rash Extremities: no cyanosis, pulses normal, no ischemia or petechiae, edema Neurologic: non-focal exam (grossly), pupils equal and round, other (Left sided hemiparesis) Psychiatric: other (unable to assess) CBC and BMP: 10/11/18 05:20 10/11/18 05:20 ABG, PT/INR, D-dimer: ABG POC ABG pH 7.516 (7.35-7.45) H 10/07/18 15:38 POC ABG pCO2 32.1 (35-45) L 10/07/18 15:38 POC ABG pO2 93 (80-105) 10/07/18 15:38 POC ABG HCO3 26.0 10/07/18 15:38 POC ABG Total CO2 27 10/07/18 15:38 POC ABG O2 Sat 98 10/07/18 15:38 PT/INR, D-dimer PT 16.0 Sec. (12.2-14.9) H 10/10/18 08:09 INR 1.20 (0.87-1.13) H 10/10/18 08:09 Abnormal lab findings: Abnormal Labs 09/11/18 09/11/18 09/11/18 18:00 18:00 18:00 WBC 1.9 L* RBC Hgb Hct RDW Plt Count 130 L Seg Neuts % (Manual) Lymphocytes % (Manual) Monocytes % (Manual) 16.0 H Eosinophils % (Manual) Basophils % (Manual) Nucleated RBC % Seg Neutrophils # Man 0.9 L Abs Lymphs (Manual) Lymphocytes # (Manual) 0.5 L PT INR APTT Heparin Anti-Xa Level POC ABG pH POC ABG pCO2 POC ABG pO2 Sodium 131 L Potassium Chloride Carbon Dioxide 17 L BUN 21 H Creatinine Glucose 126 H POC Glucose Lactic Acid 2.60 H* Calcium 8.1 L Phosphorus Magnesium Iron TIBC Ferritin AST 123 H ALT 115 H Total Creatine Kinase Total Protein Albumin 3.0 L Vitamin B12 Folate TSH Free T4 CSF VDRL Lymph Enumerat CD4/CD8 Absolute CD3 Count % CD4 Cells Absolute CD4 Count % CD8 Cells Absolute CD19 Count T.pallidum Ab (FTA-ABS) HIV-1 RNA PCR copies/ml HIV-1 RNA (PCR) log Miscellaneous Test 09/11/18 09/13/18 09/13/18 19:01 04:28 07:31 WBC 2.0 L RBC Hgb Hct RDW Plt Count 116 L Seg Neuts % (Manual) Lymphocytes % (Manual) Monocytes % (Manual) 8.0 H Eosinophils % (Manual) Basophils % (Manual) Nucleated RBC % Seg Neutrophils # Man 1.0 L Abs Lymphs (Manual) Lymphocytes # (Manual) 0.5 L PT INR APTT Heparin Anti-Xa Level POC ABG pH POC ABG pCO2 POC ABG pO2 Sodium Potassium Chloride 110.4 H Carbon Dioxide 19 L BUN Creatinine Glucose POC Glucose Lactic Acid 3.70 H* Calcium 7.9 L Phosphorus Magnesium Iron TIBC Ferritin AST ALT Total Creatine Kinase Total Protein Albumin Vitamin B12 Folate TSH Free T4 CSF VDRL Lymph Enumerat CD4/CD8 Absolute CD3 Count % CD4 Cells Absolute CD4 Count % CD8 Cells Absolute CD19 Count T.pallidum Ab (FTA-ABS) HIV-1 RNA PCR copies/ml HIV-1 RNA (PCR) log Miscellaneous Test 09/13/18 09/13/18 09/13/18 07:31 12:29 12:29 WBC RBC Hgb Hct RDW Plt Count Seg Neuts % (Manual) Lymphocytes % (Manual) Monocytes % (Manual) Eosinophils % (Manual) Basophils % (Manual) Nucleated RBC % Seg Neutrophils # Man Abs Lymphs (Manual) 309 L Lymphocytes # (Manual) PT INR APTT Heparin Anti-Xa Level POC ABG pH POC ABG pCO2 POC ABG pO2 Sodium Potassium Chloride Carbon Dioxide BUN Creatinine Glucose POC Glucose Lactic Acid Calcium Phosphorus Magnesium Iron TIBC Ferritin AST 70 H ALT 68 H Total Creatine Kinase Total Protein Albumin 2.5 L Vitamin B12 Folate TSH Free T4 CSF VDRL Lymph Enumerat CD4/CD8 0.01 L Absolute CD3 Count 220 L % CD4 Cells 1 L Absolute CD4 Count 4 L % CD8 Cells 70 H Absolute CD19 Count 54 L T.pallidum Ab (FTA-ABS) HIV-1 RNA PCR copies/ml 69114 H HIV-1 RNA (PCR) log 4.71 H Miscellaneous Test 09/13/18 09/14/18 09/14/18 12:29 07:17 16:34 WBC RBC Hgb Hct RDW Plt Count Seg Neuts % (Manual) Lymphocytes % (Manual) Monocytes % (Manual) Eosinophils % (Manual) Basophils % (Manual) Nucleated RBC % Seg Neutrophils # Man Abs Lymphs (Manual) Lymphocytes # (Manual) PT INR APTT Heparin Anti-Xa Level POC ABG pH POC ABG pCO2 POC ABG pO2 Sodium Potassium 3.4 L Chloride Carbon Dioxide 18 L BUN Creatinine Glucose 104 H POC Glucose Lactic Acid Calcium 7.6 L Phosphorus Magnesium Iron TIBC Ferritin AST 49 H ALT Total Creatine Kinase Total Protein Albumin 2.5 L Vitamin B12 Folate TSH Free T4 CSF VDRL Lymph Enumerat CD4/CD8 Absolute CD3 Count % CD4 Cells Absolute CD4 Count % CD8 Cells Absolute CD19 Count T.pallidum Ab (FTA-ABS) Reactive H HIV-1 RNA PCR copies/ml HIV-1 RNA (PCR) log Miscellaneous Test Flexitest 1 H 09/15/18 09/15/18 09/15/18 05:05 05:05 Unknown WBC 1.6 L* RBC Hgb 10.4 L Hct 31.1 L D RDW Plt Count 113 L Seg Neuts % (Manual) Lymphocytes % (Manual) Monocytes % (Manual) Eosinophils % (Manual) Basophils % (Manual) Nucleated RBC % Seg Neutrophils # Man Abs Lymphs (Manual) Lymphocytes # (Manual) PT INR APTT Heparin Anti-Xa Level POC ABG pH POC ABG pCO2 POC ABG pO2 Sodium Potassium Chloride 107.9 H Carbon Dioxide 18 L BUN 6 L Creatinine Glucose POC Glucose Lactic Acid Calcium 7.4 L Phosphorus Magnesium Iron TIBC Ferritin AST ALT Total Creatine Kinase Total Protein Albumin Vitamin B12 Folate TSH Free T4 CSF VDRL Reactive 1:8 H Lymph Enumerat CD4/CD8 Absolute CD3 Count % CD4 Cells Absolute CD4 Count % CD8 Cells Absolute CD19 Count T.pallidum Ab (FTA-ABS) HIV-1 RNA PCR copies/ml HIV-1 RNA (PCR) log Miscellaneous Test 09/16/18 09/16/18 09/16/18 06:55 11:41 11:41 WBC 2.8 L RBC Hgb 10.9 L Hct 33.5 L RDW Plt Count 135 L Seg Neuts % (Manual) Lymphocytes % (Manual) Monocytes % (Manual) Eosinophils % (Manual) Basophils % (Manual) Nucleated RBC % Seg Neutrophils # Man Abs Lymphs (Manual) Lymphocytes # (Manual) PT INR APTT Heparin Anti-Xa Level POC ABG pH POC ABG pCO2 POC ABG pO2 Sodium Potassium Chloride Carbon Dioxide BUN Creatinine Glucose POC Glucose Lactic Acid Calcium Phosphorus Magnesium Iron TIBC Ferritin AST ALT Total Creatine Kinase Total Protein Albumin Vitamin B12 Folate TSH 4.210 H Free T4 0.72 L CSF VDRL Lymph Enumerat CD4/CD8 Absolute CD3 Count % CD4 Cells Absolute CD4 Count % CD8 Cells Absolute CD19 Count T.pallidum Ab (FTA-ABS) HIV-1 RNA PCR copies/ml HIV-1 RNA (PCR) log Miscellaneous Test 09/16/18 09/16/18 09/17/18 11:41 15:43 05:13 WBC 2.0 L RBC Hgb 10.9 L Hct 32.7 L RDW Plt Count Seg Neuts % (Manual) Lymphocytes % (Manual) Monocytes % (Manual) Eosinophils % (Manual) Basophils % (Manual) Nucleated RBC % Seg Neutrophils # Man Abs Lymphs (Manual) Lymphocytes # (Manual) PT INR APTT Heparin Anti-Xa Level POC ABG pH POC ABG pCO2 29.3 L POC ABG pO2 70 L Sodium Potassium Chloride Carbon Dioxide BUN Creatinine Glucose POC Glucose Lactic Acid Calcium Phosphorus Magnesium Iron TIBC Ferritin AST ALT Total Creatine Kinase Total Protein Albumin Vitamin B12 934.5 H Folate TSH Free T4 CSF VDRL Lymph Enumerat CD4/CD8 Absolute CD3 Count % CD4 Cells Absolute CD4 Count % CD8 Cells Absolute CD19 Count T.pallidum Ab (FTA-ABS) HIV-1 RNA PCR copies/ml HIV-1 RNA (PCR) log Miscellaneous Test 09/17/18 09/17/18 09/18/18 05:13 21:57 12:46 WBC RBC Hgb Hct RDW Plt Count Seg Neuts % (Manual) Lymphocytes % (Manual) Monocytes % (Manual) Eosinophils % (Manual) Basophils % (Manual) Nucleated RBC % Seg Neutrophils # Man Abs Lymphs (Manual) Lymphocytes # (Manual) PT INR APTT Heparin Anti-Xa Level POC ABG pH POC ABG pCO2 POC ABG pO2 Sodium Potassium Chloride 107.2 H Carbon Dioxide 21 L BUN 3 L Creatinine 0.7 L Glucose POC Glucose 108 H Lactic Acid Calcium 7.9 L Phosphorus Magnesium Iron TIBC Ferritin AST ALT Total Creatine Kinase Total Protein 6.1 L Albumin 2.6 L Vitamin B12 Folate TSH Free T4 0.75 L CSF VDRL Lymph Enumerat CD4/CD8 Absolute CD3 Count % CD4 Cells Absolute CD4 Count % CD8 Cells Absolute CD19 Count T.pallidum Ab (FTA-ABS) HIV-1 RNA PCR copies/ml HIV-1 RNA (PCR) log Miscellaneous Test 09/18/18 09/19/18 09/19/18 12:46 04:57 04:57 WBC 2.1 L RBC Hgb 11.4 L Hct 34.2 L RDW Plt Count Seg Neuts % (Manual) Lymphocytes % (Manual) Monocytes % (Manual) Eosinophils % (Manual) Basophils % (Manual) Nucleated RBC % Seg Neutrophils # Man Abs Lymphs (Manual) Lymphocytes # (Manual) PT INR APTT Heparin Anti-Xa Level POC ABG pH POC ABG pCO2 POC ABG pO2 Sodium Potassium Chloride Carbon Dioxide 19 L BUN 6 L Creatinine Glucose POC Glucose Lactic Acid Calcium 7.9 L Phosphorus Magnesium Iron TIBC Ferritin AST ALT Total Creatine Kinase Total Protein Albumin Vitamin B12 Folate TSH 5.190 H Free T4 CSF VDRL Lymph Enumerat CD4/CD8 Absolute CD3 Count % CD4 Cells Absolute CD4 Count % CD8 Cells Absolute CD19 Count T.pallidum Ab (FTA-ABS) HIV-1 RNA PCR copies/ml HIV-1 RNA (PCR) log Miscellaneous Test 09/19/18 09/19/18 09/20/18 15:00 15:00 05:33 WBC RBC Hgb Hct RDW Plt Count Seg Neuts % (Manual) Lymphocytes % (Manual) Monocytes % (Manual) Eosinophils % (Manual) Basophils % (Manual) Nucleated RBC % Seg Neutrophils # Man Abs Lymphs (Manual) Lymphocytes # (Manual) PT INR APTT Heparin Anti-Xa Level POC ABG pH POC ABG pCO2 POC ABG pO2 Sodium 136 L Potassium Chloride Carbon Dioxide 19 L BUN 7 L Creatinine Glucose POC Glucose Lactic Acid Calcium Phosphorus Magnesium Iron TIBC Ferritin AST ALT Total Creatine Kinase Total Protein Albumin Vitamin B12 Folate TSH Free T4 CSF VDRL Reactive 1:4 H Lymph Enumerat CD4/CD8 Absolute CD3 Count % CD4 Cells Absolute CD4 Count % CD8 Cells Absolute CD19 Count T.pallidum Ab (FTA-ABS) HIV-1 RNA PCR copies/ml HIV-1 RNA (PCR) log Miscellaneous Test Flexitest 1 H 09/20/18 09/21/18 09/21/18 06:52 01:06 03:49 WBC 2.5 L RBC Hgb Hct RDW Plt Count Seg Neuts % (Manual) Lymphocytes % (Manual) Monocytes % (Manual) Eosinophils % (Manual) Basophils % (Manual) Nucleated RBC % Seg Neutrophils # Man Abs Lymphs (Manual) Lymphocytes # (Manual) PT INR APTT Heparin Anti-Xa Level POC ABG pH 7.159 L POC ABG pCO2 32.9 L 70.0 H POC ABG pO2 62 L 254 H Sodium Potassium Chloride Carbon Dioxide BUN Creatinine Glucose POC Glucose Lactic Acid Calcium Phosphorus Magnesium Iron TIBC Ferritin AST ALT Total Creatine Kinase Total Protein Albumin Vitamin B12 Folate TSH Free T4 CSF VDRL Lymph Enumerat CD4/CD8 Absolute CD3 Count % CD4 Cells Absolute CD4 Count % CD8 Cells Absolute CD19 Count T.pallidum Ab (FTA-ABS) HIV-1 RNA PCR copies/ml HIV-1 RNA (PCR) log Miscellaneous Test 09/21/18 09/21/18 09/21/18 04:15 04:15 04:25 WBC 3.1 L RBC Hgb 11.6 L Hct RDW Plt Count Seg Neuts % (Manual) Lymphocytes % (Manual) Monocytes % (Manual) 12.0 H Eosinophils % (Manual) Basophils % (Manual) Nucleated RBC % Seg Neutrophils # Man 1.6 L Abs Lymphs (Manual) Lymphocytes # (Manual) 0.5 L PT INR APTT Heparin Anti-Xa Level POC ABG pH POC ABG pCO2 POC ABG pO2 Sodium Potassium 6.1 H* D Chloride Carbon Dioxide 19 L BUN Creatinine Glucose 108 H POC Glucose Lactic Acid Calcium Phosphorus Magnesium Iron TIBC Ferritin AST ALT Total Creatine Kinase 685 H Total Protein Albumin Vitamin B12 Folate TSH Free T4 CSF VDRL Lymph Enumerat CD4/CD8 Absolute CD3 Count % CD4 Cells Absolute CD4 Count % CD8 Cells Absolute CD19 Count T.pallidum Ab (FTA-ABS) HIV-1 RNA PCR copies/ml HIV-1 RNA (PCR) log Miscellaneous Test 09/21/18 09/21/18 09/21/18 09:59 10:07 11:00 WBC RBC Hgb 11.7 L Hct RDW Plt Count Seg Neuts % (Manual) Lymphocytes % (Manual) Monocytes % (Manual) Eosinophils % (Manual) Basophils % (Manual) Nucleated RBC % Seg Neutrophils # Man Abs Lymphs (Manual) Lymphocytes # (Manual) PT INR APTT Heparin Anti-Xa Level POC ABG pH 7.301 L POC ABG pCO2 POC ABG pO2 109 H Sodium Potassium 6.5 H* Chloride Carbon Dioxide 18 L BUN Creatinine 2.1 H D Glucose POC Glucose Lactic Acid Calcium 8.1 L Phosphorus Magnesium Iron TIBC Ferritin AST 94 H ALT Total Creatine Kinase Total Protein Albumin 2.8 L Vitamin B12 Folate TSH Free T4 CSF VDRL Lymph Enumerat CD4/CD8 Absolute CD3 Count % CD4 Cells Absolute CD4 Count % CD8 Cells Absolute CD19 Count T.pallidum Ab (FTA-ABS) HIV-1 RNA PCR copies/ml HIV-1 RNA (PCR) log Miscellaneous Test 09/21/18 09/21/18 09/21/18 15:00 21:54 21:54 WBC RBC Hgb Hct RDW Plt Count Seg Neuts % (Manual) Lymphocytes % (Manual) Monocytes % (Manual) Eosinophils % (Manual) Basophils % (Manual) Nucleated RBC % Seg Neutrophils # Man Abs Lymphs (Manual) Lymphocytes # (Manual) PT 19.9 H INR 1.65 H APTT 40.9 H Heparin Anti-Xa Level 0.98 H POC ABG pH POC ABG pCO2 POC ABG pO2 Sodium Potassium 5.2 H Chloride Carbon Dioxide BUN Creatinine Glucose POC Glucose Lactic Acid Calcium Phosphorus Magnesium Iron TIBC Ferritin AST ALT Total Creatine Kinase Total Protein Albumin Vitamin B12 Folate TSH Free T4 CSF VDRL Lymph Enumerat CD4/CD8 Absolute CD3 Count % CD4 Cells Absolute CD4 Count % CD8 Cells Absolute CD19 Count T.pallidum Ab (FTA-ABS) HIV-1 RNA PCR copies/ml HIV-1 RNA (PCR) log Miscellaneous Test 09/21/18 09/22/18 09/22/18 22:57 03:01 05:27 WBC RBC Hgb Hct RDW Plt Count Seg Neuts % (Manual) Lymphocytes % (Manual) Monocytes % (Manual) Eosinophils % (Manual) Basophils % (Manual) Nucleated RBC % Seg Neutrophils # Man Abs Lymphs (Manual) Lymphocytes # (Manual) PT INR APTT Heparin Anti-Xa Level POC ABG pH POC ABG pCO2 32.7 L POC ABG pO2 Sodium Potassium Chloride Carbon Dioxide BUN Creatinine Glucose POC Glucose 124 H 128 H Lactic Acid Calcium Phosphorus Magnesium Iron TIBC Ferritin AST ALT Total Creatine Kinase Total Protein Albumin Vitamin B12 Folate TSH Free T4 CSF VDRL Lymph Enumerat CD4/CD8 Absolute CD3 Count % CD4 Cells Absolute CD4 Count % CD8 Cells Absolute CD19 Count T.pallidum Ab (FTA-ABS) HIV-1 RNA PCR copies/ml HIV-1 RNA (PCR) log Miscellaneous Test 09/22/18 09/22/18 09/22/18 07:00 07:00 11:32 WBC 1.8 L* RBC 3.59 L Hgb 10.1 L Hct 30.8 L RDW Plt Count 126 L Seg Neuts % (Manual) Lymphocytes % (Manual) Monocytes % (Manual) Eosinophils % (Manual) Basophils % (Manual) Nucleated RBC % Seg Neutrophils # Man Abs Lymphs (Manual) Lymphocytes # (Manual) PT INR APTT Heparin Anti-Xa Level POC ABG pH POC ABG pCO2 POC ABG pO2 Sodium Potassium Chloride Carbon Dioxide BUN 27 H Creatinine 2.0 H Glucose 128 H POC Glucose 123 H Lactic Acid Calcium 6.9 L Phosphorus Magnesium Iron TIBC Ferritin AST ALT Total Creatine Kinase Total Protein Albumin Vitamin B12 Folate TSH Free T4 CSF VDRL Lymph Enumerat CD4/CD8 Absolute CD3 Count % CD4 Cells Absolute CD4 Count % CD8 Cells Absolute CD19 Count T.pallidum Ab (FTA-ABS) HIV-1 RNA PCR copies/ml HIV-1 RNA (PCR) log Miscellaneous Test 09/22/18 09/22/18 09/22/18 15:52 18:18 23:52 WBC RBC Hgb Hct RDW Plt Count Seg Neuts % (Manual) Lymphocytes % (Manual) Monocytes % (Manual) Eosinophils % (Manual) Basophils % (Manual) Nucleated RBC % Seg Neutrophils # Man Abs Lymphs (Manual) Lymphocytes # (Manual) PT INR APTT Heparin Anti-Xa Level POC ABG pH POC ABG pCO2 48.7 H POC ABG pO2 Sodium Potassium Chloride Carbon Dioxide BUN Creatinine Glucose POC Glucose 110 H 124 H Lactic Acid Calcium Phosphorus Magnesium Iron TIBC Ferritin AST ALT Total Creatine Kinase Total Protein Albumin Vitamin B12 Folate TSH Free T4 CSF VDRL Lymph Enumerat CD4/CD8 Absolute CD3 Count % CD4 Cells Absolute CD4 Count % CD8 Cells Absolute CD19 Count T.pallidum Ab (FTA-ABS) HIV-1 RNA PCR copies/ml HIV-1 RNA (PCR) log Miscellaneous Test 09/23/18 09/23/18 09/23/18 04:10 05:55 05:55 WBC RBC Hgb 10.0 L Hct 30.3 L RDW Plt Count 117 L Seg Neuts % (Manual) Lymphocytes % (Manual) Monocytes % (Manual) Eosinophils % (Manual) Basophils % (Manual) Nucleated RBC % Seg Neutrophils # Man Abs Lymphs (Manual) Lymphocytes # (Manual) PT INR APTT Heparin Anti-Xa Level 0.26 L POC ABG pH POC ABG pCO2 POC ABG pO2 144 H Sodium Potassium Chloride Carbon Dioxide BUN Creatinine Glucose POC Glucose Lactic Acid Calcium Phosphorus Magnesium Iron TIBC Ferritin AST ALT Total Creatine Kinase Total Protein Albumin Vitamin B12 Folate TSH Free T4 CSF VDRL Lymph Enumerat CD4/CD8 Absolute CD3 Count % CD4 Cells Absolute CD4 Count % CD8 Cells Absolute CD19 Count T.pallidum Ab (FTA-ABS) HIV-1 RNA PCR copies/ml HIV-1 RNA (PCR) log Miscellaneous Test 09/23/18 09/23/18 09/23/18 08:10 08:10 23:57 WBC 1.3 L* RBC 3.53 L Hgb 9.9 L Hct 30.0 L RDW Plt Count 119 L Seg Neuts % (Manual) Lymphocytes % (Manual) Monocytes % (Manual) Eosinophils % (Manual) Basophils % (Manual) Nucleated RBC % Seg Neutrophils # Man Abs Lymphs (Manual) Lymphocytes # (Manual) PT INR APTT Heparin Anti-Xa Level POC ABG pH POC ABG pCO2 POC ABG pO2 Sodium Potassium Chloride Carbon Dioxide BUN Creatinine Glucose 122 H POC Glucose 115 H Lactic Acid Calcium 6.9 L Phosphorus Magnesium Iron TIBC Ferritin AST ALT Total Creatine Kinase Total Protein Albumin Vitamin B12 Folate TSH Free T4 CSF VDRL Lymph Enumerat CD4/CD8 Absolute CD3 Count % CD4 Cells Absolute CD4 Count % CD8 Cells Absolute CD19 Count T.pallidum Ab (FTA-ABS) HIV-1 RNA PCR copies/ml HIV-1 RNA (PCR) log Miscellaneous Test 09/24/18 09/24/18 09/24/18 12:04 14:42 18:10 WBC RBC Hgb Hct RDW Plt Count Seg Neuts % (Manual) Lymphocytes % (Manual) Monocytes % (Manual) Eosinophils % (Manual) Basophils % (Manual) Nucleated RBC % Seg Neutrophils # Man Abs Lymphs (Manual) Lymphocytes # (Manual) PT INR APTT Heparin Anti-Xa Level 0.76 H POC ABG pH POC ABG pCO2 POC ABG pO2 Sodium Potassium Chloride Carbon Dioxide BUN Creatinine Glucose POC Glucose 111 H 138 H Lactic Acid Calcium Phosphorus Magnesium Iron TIBC Ferritin AST ALT Total Creatine Kinase Total Protein Albumin Vitamin B12 Folate TSH Free T4 CSF VDRL Lymph Enumerat CD4/CD8 Absolute CD3 Count % CD4 Cells Absolute CD4 Count % CD8 Cells Absolute CD19 Count T.pallidum Ab (FTA-ABS) HIV-1 RNA PCR copies/ml HIV-1 RNA (PCR) log Miscellaneous Test 09/25/18 09/25/18 09/25/18 03:45 04:24 14:20 WBC RBC Hgb 9.7 L Hct 29.4 L RDW Plt Count 104 L Seg Neuts % (Manual) Lymphocytes % (Manual) Monocytes % (Manual) Eosinophils % (Manual) Basophils % (Manual) Nucleated RBC % Seg Neutrophils # Man Abs Lymphs (Manual) Lymphocytes # (Manual) PT INR APTT Heparin Anti-Xa Level POC ABG pH 7.460 H POC ABG pCO2 32.9 L POC ABG pO2 Sodium Potassium 3.5 L Chloride 110.3 H Carbon Dioxide BUN Creatinine Glucose 105 H POC Glucose Lactic Acid Calcium 6.7 L Phosphorus Magnesium Iron TIBC Ferritin AST 633 H ALT 481 H Total Creatine Kinase Total Protein 4.8 L D Albumin 1.9 L Vitamin B12 Folate TSH Free T4 CSF VDRL Lymph Enumerat CD4/CD8 Absolute CD3 Count % CD4 Cells Absolute CD4 Count % CD8 Cells Absolute CD19 Count T.pallidum Ab (FTA-ABS) HIV-1 RNA PCR copies/ml HIV-1 RNA (PCR) log Miscellaneous Test 09/26/18 09/26/18 09/26/18 06:15 06:15 10:43 WBC 1.2 L* RBC 3.32 L Hgb 9.2 L Hct 28.6 L RDW Plt Count 97 L Seg Neuts % (Manual) 24.0 L Lymphocytes % (Manual) 43.0 H Monocytes % (Manual) 19.0 H Eosinophils % (Manual) 8.0 H Basophils % (Manual) 2.0 H Nucleated RBC % 3.0 H Seg Neutrophils # Man 0.0 L Abs Lymphs (Manual) Lymphocytes # (Manual) 0.0 L PT INR APTT Heparin Anti-Xa Level POC ABG pH 7.459 H POC ABG pCO2 POC ABG pO2 141 H Sodium Potassium Chloride 112.8 H Carbon Dioxide BUN Creatinine Glucose 110 H POC Glucose Lactic Acid Calcium 7.0 L Phosphorus 0.90 L* Magnesium Iron TIBC Ferritin AST 362 H ALT 360 H Total Creatine Kinase Total Protein 4.9 L Albumin 1.5 L Vitamin B12 Folate TSH Free T4 CSF VDRL Lymph Enumerat CD4/CD8 Absolute CD3 Count % CD4 Cells Absolute CD4 Count % CD8 Cells Absolute CD19 Count T.pallidum Ab (FTA-ABS) HIV-1 RNA PCR copies/ml HIV-1 RNA (PCR) log Miscellaneous Test 09/26/18 09/27/18 09/28/18 13:56 04:11 07:49 WBC RBC Hgb 9.1 L Hct 29.1 L RDW Plt Count 96 L Seg Neuts % (Manual) Lymphocytes % (Manual) Monocytes % (Manual) Eosinophils % (Manual) Basophils % (Manual) Nucleated RBC % Seg Neutrophils # Man Abs Lymphs (Manual) Lymphocytes # (Manual) PT INR APTT Heparin Anti-Xa Level POC ABG pH POC ABG pCO2 POC ABG pO2 Sodium 146 H Potassium Chloride 111.6 H Carbon Dioxide BUN Creatinine Glucose POC Glucose 135 H Lactic Acid Calcium 7.4 L Phosphorus Magnesium Iron TIBC Ferritin AST ALT Total Creatine Kinase Total Protein Albumin Vitamin B12 Folate TSH Free T4 CSF VDRL Lymph Enumerat CD4/CD8 Absolute CD3 Count % CD4 Cells Absolute CD4 Count % CD8 Cells Absolute CD19 Count T.pallidum Ab (FTA-ABS) HIV-1 RNA PCR copies/ml HIV-1 RNA (PCR) log Miscellaneous Test 09/28/18 09/29/18 09/29/18 10:43 05:00 05:00 WBC 1.2 L* RBC 3.13 L Hgb 8.6 L Hct 27.3 L RDW Plt Count 137 L Seg Neuts % (Manual) Lymphocytes % (Manual) Monocytes % (Manual) 16.0 H Eosinophils % (Manual) Basophils % (Manual) Nucleated RBC % 4.0 H Seg Neutrophils # Man 0.5 L Abs Lymphs (Manual) Lymphocytes # (Manual) 0.3 L PT INR APTT Heparin Anti-Xa Level POC ABG pH 7.300 L POC ABG pCO2 53.9 H POC ABG pO2 Sodium 147 H Potassium 3.4 L Chloride 114.5 H Carbon Dioxide BUN Creatinine Glucose POC Glucose Lactic Acid Calcium 7.7 L Phosphorus Magnesium Iron TIBC Ferritin AST 69 H ALT 110 H Total Creatine Kinase Total Protein 5.2 L Albumin 1.9 L Vitamin B12 Folate TSH Free T4 CSF VDRL Lymph Enumerat CD4/CD8 Absolute CD3 Count % CD4 Cells Absolute CD4 Count % CD8 Cells Absolute CD19 Count T.pallidum Ab (FTA-ABS) HIV-1 RNA PCR copies/ml HIV-1 RNA (PCR) log Miscellaneous Test 09/29/18 09/29/18 09/30/18 06:07 13:22 05:19 WBC 0.9 L* RBC 3.03 L Hgb 8.6 L Hct 25.9 L RDW Plt Count Seg Neuts % (Manual) Lymphocytes % (Manual) Monocytes % (Manual) Eosinophils % (Manual) Basophils % (Manual) Nucleated RBC % Seg Neutrophils # Man Abs Lymphs (Manual) Lymphocytes # (Manual) PT INR APTT Heparin Anti-Xa Level POC ABG pH POC ABG pCO2 46.9 H POC ABG pO2 Sodium Potassium Chloride Carbon Dioxide BUN Creatinine Glucose POC Glucose 109 H Lactic Acid Calcium Phosphorus Magnesium Iron TIBC Ferritin AST ALT Total Creatine Kinase Total Protein Albumin Vitamin B12 Folate TSH Free T4 CSF VDRL Lymph Enumerat CD4/CD8 Absolute CD3 Count % CD4 Cells Absolute CD4 Count % CD8 Cells Absolute CD19 Count T.pallidum Ab (FTA-ABS) HIV-1 RNA PCR copies/ml HIV-1 RNA (PCR) log Miscellaneous Test 09/30/18 09/30/18 09/30/18 05:19 11:14 23:28 WBC RBC Hgb Hct RDW Plt Count Seg Neuts % (Manual) Lymphocytes % (Manual) Monocytes % (Manual) Eosinophils % (Manual) Basophils % (Manual) Nucleated RBC % Seg Neutrophils # Man Abs Lymphs (Manual) Lymphocytes # (Manual) PT INR APTT Heparin Anti-Xa Level 0.72 H POC ABG pH POC ABG pCO2 46.6 H POC ABG pO2 Sodium 150 H Potassium Chloride 115.2 H Carbon Dioxide BUN Creatinine Glucose POC Glucose Lactic Acid Calcium 7.9 L Phosphorus Magnesium Iron TIBC Ferritin AST ALT Total Creatine Kinase Total Protein Albumin Vitamin B12 Folate TSH Free T4 CSF VDRL Lymph Enumerat CD4/CD8 Absolute CD3 Count % CD4 Cells Absolute CD4 Count % CD8 Cells Absolute CD19 Count T.pallidum Ab (FTA-ABS) HIV-1 RNA PCR copies/ml HIV-1 RNA (PCR) log Miscellaneous Test 10/01/18 10/01/18 10/02/18 04:55 04:55 07:15 WBC 0.9 L* 0.7 L* RBC 3.01 L 2.92 L Hgb 8.4 L 8.4 L Hct 26.0 L 24.9 L RDW Plt Count Seg Neuts % (Manual) Lymphocytes % (Manual) Monocytes % (Manual) Eosinophils % (Manual) Basophils % (Manual) Nucleated RBC % Seg Neutrophils # Man Abs Lymphs (Manual) Lymphocytes # (Manual) PT INR APTT Heparin Anti-Xa Level POC ABG pH POC ABG pCO2 POC ABG pO2 Sodium 147 H Potassium 3.4 L Chloride 113.1 H Carbon Dioxide BUN 22 H Creatinine Glucose POC Glucose Lactic Acid Calcium 7.3 L Phosphorus Magnesium Iron TIBC Ferritin AST ALT Total Creatine Kinase Total Protein Albumin Vitamin B12 Folate TSH Free T4 CSF VDRL Lymph Enumerat CD4/CD8 Absolute CD3 Count % CD4 Cells Absolute CD4 Count % CD8 Cells Absolute CD19 Count T.pallidum Ab (FTA-ABS) HIV-1 RNA PCR copies/ml HIV-1 RNA (PCR) log Miscellaneous Test 10/02/18 10/03/18 10/03/18 07:15 06:12 06:12 WBC 0.8 L* RBC 2.96 L Hgb 8.5 L Hct 25.9 L RDW 15.4 H Plt Count Seg Neuts % (Manual) Lymphocytes % (Manual) Monocytes % (Manual) Eosinophils % (Manual) Basophils % (Manual) Nucleated RBC % Seg Neutrophils # Man Abs Lymphs (Manual) Lymphocytes # (Manual) PT INR APTT Heparin Anti-Xa Level POC ABG pH POC ABG pCO2 POC ABG pO2 Sodium Potassium 3.4 L 3.4 L Chloride 108.3 H Carbon Dioxide BUN Creatinine Glucose POC Glucose Lactic Acid Calcium 7.6 L 7.4 L Phosphorus Magnesium Iron TIBC Ferritin AST ALT Total Creatine Kinase Total Protein Albumin Vitamin B12 Folate TSH Free T4 CSF VDRL Lymph Enumerat CD4/CD8 Absolute CD3 Count % CD4 Cells Absolute CD4 Count % CD8 Cells Absolute CD19 Count T.pallidum Ab (FTA-ABS) HIV-1 RNA PCR copies/ml HIV-1 RNA (PCR) log Miscellaneous Test 10/03/18 10/03/18 10/04/18 11:45 13:23 01:40 WBC RBC Hgb Hct RDW Plt Count Seg Neuts % (Manual) Lymphocytes % (Manual) Monocytes % (Manual) Eosinophils % (Manual) Basophils % (Manual) Nucleated RBC % Seg Neutrophils # Man Abs Lymphs (Manual) Lymphocytes # (Manual) PT INR APTT Heparin Anti-Xa Level 1.34 H 0.26 L POC ABG pH POC ABG pCO2 POC ABG pO2 Sodium Potassium Chloride Carbon Dioxide BUN Creatinine Glucose POC Glucose Lactic Acid Calcium Phosphorus Magnesium 1.40 L Iron TIBC Ferritin AST ALT Total Creatine Kinase Total Protein Albumin Vitamin B12 Folate TSH Free T4 CSF VDRL Lymph Enumerat CD4/CD8 Absolute CD3 Count % CD4 Cells Absolute CD4 Count % CD8 Cells Absolute CD19 Count T.pallidum Ab (FTA-ABS) HIV-1 RNA PCR copies/ml HIV-1 RNA (PCR) log Miscellaneous Test 10/04/18 10/04/18 10/06/18 04:45 04:45 09:40 WBC 0.8 L* RBC 3.11 L Hgb 9.0 L Hct 27.4 L RDW 15.4 H Plt Count Seg Neuts % (Manual) Lymphocytes % (Manual) Monocytes % (Manual) Eosinophils % (Manual) Basophils % (Manual) Nucleated RBC % Seg Neutrophils # Man Abs Lymphs (Manual) Lymphocytes # (Manual) PT INR APTT Heparin Anti-Xa Level POC ABG pH POC ABG pCO2 POC ABG pO2 Sodium Potassium Chloride Carbon Dioxide BUN Creatinine 0.7 L Glucose POC Glucose Lactic Acid Calcium 7.5 L Phosphorus Magnesium Iron 35 L TIBC 157 L Ferritin AST ALT Total Creatine Kinase Total Protein Albumin Vitamin B12 Folate TSH Free T4 CSF VDRL Lymph Enumerat CD4/CD8 Absolute CD3 Count % CD4 Cells Absolute CD4 Count % CD8 Cells Absolute CD19 Count T.pallidum Ab (FTA-ABS) HIV-1 RNA PCR copies/ml HIV-1 RNA (PCR) log Miscellaneous Test 10/06/18 10/06/18 10/07/18 09:40 09:40 04:20 WBC 1.1 L* RBC 3.07 L Hgb 9.1 L Hct 27.3 L RDW 20.3 H Plt Count Seg Neuts % (Manual) Lymphocytes % (Manual) Monocytes % (Manual) Eosinophils % (Manual) Basophils % (Manual) Nucleated RBC % Seg Neutrophils # Man 0.7 L Abs Lymphs (Manual) Lymphocytes # (Manual) 0.3 L PT INR APTT Heparin Anti-Xa Level POC ABG pH POC ABG pCO2 POC ABG pO2 Sodium Potassium Chloride Carbon Dioxide BUN Creatinine Glucose POC Glucose Lactic Acid Calcium Phosphorus Magnesium Iron TIBC Ferritin 1126.0 H AST ALT Total Creatine Kinase Total Protein Albumin Vitamin B12 Folate 6.71 L TSH Free T4 CSF VDRL Lymph Enumerat CD4/CD8 Absolute CD3 Count % CD4 Cells Absolute CD4 Count % CD8 Cells Absolute CD19 Count T.pallidum Ab (FTA-ABS) HIV-1 RNA PCR copies/ml HIV-1 RNA (PCR) log Miscellaneous Test 10/07/18 10/07/18 10/09/18 04:20 15:38 04:20 WBC 1.1 L* RBC 3.35 L Hgb 9.9 L Hct 30.1 L RDW 21.4 H Plt Count Seg Neuts % (Manual) 19.0 L Lymphocytes % (Manual) 42.0 H Monocytes % (Manual) 18.0 H Eosinophils % (Manual) 15.0 H Basophils % (Manual) 2.0 H Nucleated RBC % Seg Neutrophils # Man 0.2 L Abs Lymphs (Manual) Lymphocytes # (Manual) 0.5 L PT INR APTT Heparin Anti-Xa Level POC ABG pH 7.516 H POC ABG pCO2 32.1 L POC ABG pO2 Sodium Potassium Chloride Carbon Dioxide BUN Creatinine 0.7 L Glucose POC Glucose Lactic Acid Calcium 7.9 L Phosphorus Magnesium Iron TIBC Ferritin AST ALT Total Creatine Kinase Total Protein 5.5 L Albumin 2.2 L Vitamin B12 Folate TSH Free T4 CSF VDRL Lymph Enumerat CD4/CD8 Absolute CD3 Count % CD4 Cells Absolute CD4 Count % CD8 Cells Absolute CD19 Count T.pallidum Ab (FTA-ABS) HIV-1 RNA PCR copies/ml HIV-1 RNA (PCR) log Miscellaneous Test 10/09/18 10/09/18 10/09/18 04:20 11:48 17:31 WBC RBC Hgb Hct RDW Plt Count Seg Neuts % (Manual) Lymphocytes % (Manual) Monocytes % (Manual) Eosinophils % (Manual) Basophils % (Manual) Nucleated RBC % Seg Neutrophils # Man Abs Lymphs (Manual) Lymphocytes # (Manual) PT INR APTT Heparin Anti-Xa Level POC ABG pH POC ABG pCO2 POC ABG pO2 Sodium Potassium 5.4 H Chloride Carbon Dioxide 21 L BUN 55 H 72 H Creatinine 3.8 H D 4.5 H Glucose 118 H POC Glucose 124 H Lactic Acid Calcium 8.3 L 8.2 L Phosphorus Magnesium Iron TIBC Ferritin AST ALT Total Creatine Kinase Total Protein Albumin Vitamin B12 Folate TSH Free T4 CSF VDRL Lymph Enumerat CD4/CD8 Absolute CD3 Count % CD4 Cells Absolute CD4 Count % CD8 Cells Absolute CD19 Count T.pallidum Ab (FTA-ABS) HIV-1 RNA PCR copies/ml HIV-1 RNA (PCR) log Miscellaneous Test 10/10/18 10/10/18 10/10/18 08:09 08:35 10:54 WBC 1.1 L* RBC 3.16 L Hgb 9.6 L Hct 28.8 L RDW 21.2 H Plt Count Seg Neuts % (Manual) 27.0 L Lymphocytes % (Manual) Monocytes % (Manual) 9.0 H Eosinophils % (Manual) 18.0 H Basophils % (Manual) 12.0 H Nucleated RBC % Seg Neutrophils # Man 0.3 L Abs Lymphs (Manual) Lymphocytes # (Manual) 0.3 L PT 16.0 H INR 1.20 H APTT Heparin Anti-Xa Level POC ABG pH POC ABG pCO2 POC ABG pO2 Sodium Potassium 5.5 H Chloride Carbon Dioxide 20 L BUN 83 H Creatinine 5.5 H Glucose 119 H POC Glucose Lactic Acid Calcium Phosphorus Magnesium Iron TIBC Ferritin AST ALT Total Creatine Kinase Total Protein Albumin Vitamin B12 Folate TSH Free T4 CSF VDRL Lymph Enumerat CD4/CD8 Absolute CD3 Count % CD4 Cells Absolute CD4 Count % CD8 Cells Absolute CD19 Count T.pallidum Ab (FTA-ABS) HIV-1 RNA PCR copies/ml HIV-1 RNA (PCR) log Miscellaneous Test Chest x-ray: pending Allied health notes reviewed: nursing
[2018-10-10] MEDS: MAXIPIME/NS 2 GM/100 ML 2 GM/100 ML BAG IV SCH (14:48)
[2018-10-10] MEDS: LOPRESSOR PO SCH ×2 (15:06→22:06)
--- NOTE | 2018-10-10 15:21 | Progress Note ---
Assessment and Plan - Patient Problems (1) Acute kidney failure with tubular necrosis Current Visit: Yes Status: Acute Plan to address problem: Worsening renal function noted at this time with persistent fevers over the past 48 hours which can be a risk factor for MAL/pre-renal injury. Will initiate patient on IVF hydration with NS @ 125 cc/hr. Please ensure that all antibiotics are dosed appropriately for renal function. Other concern is that the change in renal function may be a consequence of extensive exposure to antibiotics (karey penicillin) as an inpatient and possible manifestations of AIN. Will obtain repeat UA as well as UPC. Please ensure that all antibiotics are dosed appropriately for decreased renal clearance. (2) Hyperkalemia Current Visit: Yes Status: Resolved Plan to address problem: In the setting of worsening renal function/MAL. Hoping that with initiation of IVF fluids and increased distal delivery of sodium, that this would facilitate increased UO and kaliuresis. (3) Acute respiratory failure with hypoxia Current Visit: Yes Status: Acute Plan to address problem: Remains intubated. Recent Chest xray noted, with development of patchy infiltrates in the right lung. 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 Will continue to monitor. Remains very lethargic with only spontaneously opening eyes. Does not follow commands. Continue to monitor (5) Pancytopenia Current Visit: Yes Status: Acute Plan to address problem: In the setting of CMV viremia, HIV/AIDS. Will defer to primary team. (6) HIV (human immunodeficiency virus infection) Current Visit: Yes Status: Chronic Plan to address problem: Management per ID recommendations. (7) Hypernatremia Current Visit: Yes Status: Acute Plan to address problem: Hypernatremia has resolved at this time. Subjective Date of service: 10/10/18 Principal diagnosis: Severe sepsis; Ac hypoxemic Resp failure; [place]. Pneumonia; Ac encephalopathy Interval history: Nephrology recalled for worsening renal function. Discussed with RN and patient has been having more persistent fevers despite current antibiotic regimen. He just came back from lumbar puncture for further evaluation. Objective - Vital Signs Vital signs: Vital Signs - 12hr 0210/10/18 10/10/18 03:51 03:53 04:00 Temperature 100.9 F H Pulse Rate 112 H 109 H Pulse Rate [ 110 H Throughout] Respiratory 17 Rate Respiratory 24 Rate [ Throughout] Blood Pressure 133/66 134/63 O2 Sat by Pulse 100 100 Oximetry 10/10/18 10/10/18 10/10/18 04:06 05:01 05:22 Temperature Pulse Rate 114 H 110 H Pulse Rate [ 112 H Throughout] Respiratory 30 H Rate Respiratory 24 Rate [ Throughout] Blood Pressure 124/74 124/74 O2 Sat by Pulse 100 Oximetry 10/10/18 10/10/18 10/10/18 06:00 07:32 07:38 Temperature Pulse Rate 104 H 108 H Pulse Rate [ 109 H Throughout] Respiratory 19 Rate Respiratory 25 H Rate [ Throughout] Blood Pressure 134/76 129/64 O2 Sat by Pulse 100 99 Oximetry 10/10/18 10/10/18 10/10/18 07:55 09:25 15:06 Temperature Pulse Rate 110 H 109 H Pulse Rate [ 108 H Throughout] Respiratory Rate Respiratory 21 Rate [ Throughout] Blood Pressure 130/68 120/60 O2 Sat by Pulse Oximetry - General Appearance General appearance: chronically ill, intubated EENT: ATNC, PERRL Neck: no JVD Respiratory: Present: Clear to Ascultation Cardiology: regular, S1S2 Gastrointestinal: normal, normoactive bowel sounds Integumentary: no rash, warm and dry Neurologic: other (no purposeful movements, does not follow commands, ) Psychiatric: other (off sedation at this time) - Lab 10/10/18 08:35 10/10/18 10:54 Most recent lab results Calcium 8.4 mg/dL (8.4-10.2) 10/10/18 10:54 Phosphorus 3.10 mg/dL (2.5-4.5) D 09/27/18 04:11 Magnesium 1.40 mg/dL (1.7-2.3) L 10/03/18 13:23 - Allied health notes Allied health notes reviewed: nursing Medications & Allergies - Medications Allergies/Adverse Reactions: Allergies No Known Allergies Allergy (Unverified 09/11/18 17:50) Home Medications: Home Medications Medication Instructions Recorded Confirmed Last Taken Type No Known Home Medications [No 10/02/18 10/02/18 Unknown History Reported Home Medications] Active Medications: Generic Name Dose Route Start Last Admin Trade Name Freq PRN Reason Stop Dose Admin Acetaminophen 650 mg 09/11/18 19:30 10/09/18 16:32 Tylenol PO 650 mg Q4H PRN Administration Pain MILD(1-3)/Fever >100.5/RIVERA Acetaminophen 650 mg 09/21/18 07:39 10/07/18 21:15 Tylenol OK 650 mg Q4H PRN Administration Fever >101 Albuterol 2.5 mg 09/11/18 19:30 09/16/18 06:09 Proventil IH 2.5 mg Q4HRT PRN Administration Shortness Of Breath Albuterol 2.5 mg 09/20/18 20:00 10/10/18 14:24 Proventil IH Not Given Q6HRT [facility] Amiodarone HCl 200 mg 09/27/18 15:00 10/10/18 09:26 Cordarone PO 200 mg BID GIA Administration Lipase/Protease/Amylase 1 each 09/30/18 12:01 Pancrealen Gibbs 10,500 Unit FEEDTUBE PRN PRN For Clogged Feeding Tube Atovaquone 750 mg 09/21/18 10:00 10/10/18 09:27 Mepron PO 750 mg BID GIA Administration Azithromycin 1,200 mg 09/25/18 10:00 10/09/18 10:44 Zithromax PO 1,200 mg Walters GIA Administration Emtricitabine 200 mg 10/13/18 10:00 Emtriva PO Q72HR [facility] Famotidine 20 mg 10/10/18 10:00 10/10/18 09:25 Pepcid PO 20 mg DAILY GIA Administration Fluconazole 200 mg 10/05/18 12:00 10/10/18 09:26 Diflucan PO 200 mg QDAY GIA Administration Folic Acid 1 mg 10/07/18 10:00 10/10/18 09:25 Folvite PO 1 mg QDAY GIA Administration Glycopyrrolate 2 mg 10/07/18 18:00 10/10/18 12:35 Robinul PO 2 mg Q6HR GIA Administration Heparin Sodium (Porcine) 5,000 unit 10/05/18 14:00 10/10/18 14:00 Heparin SUB-Q Not Given Q8HR [facility] Hydrophilic Ointment 1 applic 09/21/18 01:46 09/22/18 03:46 Vaseline Lip Therapy TP 1 applic Q2HR PRN Administration Dry Lips Levetiracetam 750 mg/ Sodium 107.5 mls @ 400 mls/hr 10/09/18 20:00 10/10/18 08:27 Chloride IV 400 mls/hr Q12H GIA Administration Ganciclovir Sodium 150 mg/ 250 mls @ 100 mls/hr 10/10/18 10:00 10/10/18 12:08 Sodium Chloride IV 100 mls/hr Q24HR GIA Administration Cefepime HCl 2 gm in 100 mls @ 200 mls/hr 10/10/18 11:30 10/10/18 14:48 Maxipime/Ns 2 Gm/100 Ml IV 200 mls/hr Q24HR GIA Administration Protocol Levothyroxine Sodium 25 mcg 09/19/18 06:00 10/10/18 05:22 Synthroid PO 25 mcg DAILY@0600 GIA Administration Metoprolol Tartrate 12.5 mg 10/10/18 13:00 10/10/18 15:06 Lopressor PO 12.5 mg BID GIA Administration Multi-Ingred Cream/Lotion/Oil/Oint 1 applic 09/21/18 01:46 Artificial Tears Ophth Oint OU Q4HR PRN Dry Eye(s) Ondansetron HCl 4 mg 09/11/18 19:30 Zofran IV Q8H PRN Nausea And Vomiting Scopolamine 1 each 09/18/18 18:00 10/09/18 19:08 Transderm-Scop TD 1 each Q3D GIA Administration Simple Syrup 15 ml 09/30/18 12:01 10/07/18 06:18 Simple Syrup FEEDTUBE 15 ml PRN PRN Administration Hypoglycemia Simple Syrup 30 ml 09/30/18 12:01 Simple Syrup FEEDTUBE PRN PRN Hypoglycemia Sodium Bicarbonate 325 mg 09/30/18 12:01 Sodium Bicarbonate FEEDTUBE PRN PRN For Clogged Feeding Tube Sodium Chloride 10 ml 09/11/18 22:00 10/10/18 09:29 Sodium Chloride Flush Syringe 10 Ml IV 10 ml BID GIA Administration Sodium Chloride 10 ml 09/11/18 19:30 Sodium Chloride Flush Syringe 10 Ml IV PRN PRN LINE FLUSH Tbo-Filgrastim 480 mcg 10/09/18 10:00 10/10/18 10:08 Granix SUB-Q 10/10/18 23:59 480 mcg DAILY GIA Administration Tenofovir Disoproxil Fumarate 300 mg 10/13/18 10:00 Viread PO Q72HR GIA
--- NOTE | 2018-10-10 15:25 | Fluoroscopy Report ---
FLUOROSCOPY LUMBAR PUNCTURE History: Persistent altered mental status and fever. Description of procedure: Consent was obtained from 2 physicians documenting medical necessity. The patient was obtunded. No family member could be reached. Sterile technique was utilized. 1% lidocaine for skin anesthesia. Using fluoroscopy guidance, lumbar puncture was performed from the left lateral decubitus approach at L2-3 level. 2 fluoroscopic images received. Lumbar puncture was slightly traumatic and blood-tinged. CSF slowly cleared. 4 CSF tubes were obtained for laboratory analysis. No complications. Impression: Successful fluoroscopy guided lumbar puncture.
[2018-10-10 15:30] LABS: Glucose,CSF 47 mg/dL
--- NOTE | 2018-10-10 15:42 | Procedure Note ---
Date of procedure: 10/10/18 Pre-op diagnosis: altered mental status, fever Post-op diagnosis: same Procedure: lumbar puncture Anesthesia: local Surgeon: LUISA MARISCAL Estimated blood loss: none Pathology: list (4 tubes) Specimen disposition: to lab Condition: stable Disposition: floor
[2018-10-10 15:44] LABS: Appearance,CSF Bloody; Red Blood Cell,CSF 22975 /mm3 (0-0); White Blood Cell,CSF 10 /mm3 (1-10)
[2018-10-10 16:17] LABS: Total Cells Counted 50 /mm3
[2018-10-10 16:18] LABS: Basophils CSF 0 %
--- NOTE | 2018-10-10 18:21 | Vascular Lab Report ---
FINAL REPORT EXAM: VL VENOUS DUPLEX LE BILAT HISTORY: swelling TECHNIQUE: Real-time color duplex sonography was performed of the deep venous systems of the bilater al lower extremities and images are submitted for interpretation. PRIORS: None. FINDINGS: Right: There is normal compressibility of the common and superficial femoral veins and the popliteal vein. Normal venous waveforms are demonstrated throughout. No echogenic thrombus is demonstrated. Col or flow is demonstrated in the posterior tibialis and peroneal veins. Left: There is normal compressibility of the common and superficial femoral veins and the popliteal v ein. Normal venous waveforms are demonstrated throughout. No echogenic thrombus is demonstrated. Lyman r flow is demonstrated in the posterior tibialis and peroneal veins. IMPRESSION: No evidence of DVT.
--- NOTE | 2018-10-10 18:38 | Progress Note ---
Assessment and Plan Assessment and plan: Severe Sepsis. Etiology secondary to bacterial pneumonia +/- gastroenteritis with newly diagnosed with HIV. Fevers have re-emerged. Repeat blood cx per ID. ARF - Creatinine is trending up and nephrology is following Acute hypoxemic respiratory failure. Etiology mostly secondary to mental status issues. Pulm following. Disseminated CMV viremia: continue IV Ganciclovir 5 mg/kg q12 hrs, continue till CMV PCR is <200. LP done today Toxic metabolic encephalopathy. 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 Of note, MRI did not show ventriculitis. Neurology re-consultation. Repeat A. fib with RVR. Converted to NSR. cont Amiodarone and metoprolol. Neurosyphilis: CSF VDRL positive, off Ceftriaxone and back on IV Penicillin (will complete 21 days). Diarrhea. Resolved, etiology likely secondary to Giardia. Giardia antigen positive in stool. Completed several days of Flagyl. Oral candidiasis. Fluconazole HIV/AIDS. New Diagnosis. Started on HAART on 09/30, Tenofovir, Emtricitabine + Dolutegravir watch closely for IRIS continue atovaquone and azithromycin prophylaxis Neutropenia. 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 Also probably worse from ganciclovir. r/o disseminated MAC, thus far cultures negative. Hematology started him on granix Prognosis poor. For Trach and PEG tomorrow. The high probability of a clinically significant, sudden or life threatening deterioration of the [neurological, respiratory and cardiac] system(s) required my full and direct attention, intervention and personal management. The aggregate critical care time was [31] minutes. This time is in addition to time spent performing reported procedures but includes the following: [x] Data Review and interpretation [x] Patient assessment and monitoring of vital signs [x] Documentation [x] Medication orders and management History Interval history: Patient is 33 yo initially presented with diarrhea, found to have pneumonia, sepsis, HIV/AIDS(new diagnosis) with CD4 count of 4. He was started on abx for PJP. His mental status has worsened with confusion, lethargy. LP done . He was diagnosed with neurosyphilis. Started on Penicillin. Closest family is sister in [place], and dr. Baltazar spoke to her several times about diagnosis but did not tell her about HIV/AIDS because of patient confidentiality. The patient decompensated on 09/20/18 with acute hypoxemic respiratory failure and worsening toxic metabolic encephalopathy requiring transfer to ICU and intubation. He now remains on mechanical ventilation. The patient was also noted to develop SVT requiring amiodarone drip as well as heparin drip. History Interval history: Patient was seen and evaluated this morning, patient had fever overnight, patient is intubated and on mechanical ventilation. Hospitalist Physical - Physical exam Narrative exam: Patient is intubated and on mechanical ventilation. The patient is obese. Vital signs as documented. Head exam is unremarkable. No scleral icterus . Neck is without jugular venous distension, thyromegaly, or carotid bruits. Lungs are clear to auscultation. Cardiac exam reveals regular rate and Rhythm. First and second heart sounds normal. No murmurs, rubs or gallops. Abdominal exam reveals normal bowel sounds, no masses, no organomegaly and no aortic enlargement. Extremities are nonedematous and both femoral and pedal pulses are normal. 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 - Constitutional Vitals: Temp Pulse Resp BP Pulse Ox 99.1 F 102 H 23 121/77 100 10/10/18 16:00 10/10/18 17:00 10/10/18 17:00 10/10/18 17:00 10/10/18 17:00 General appearance: Present: other (orally intubated, minimal response--right side spontaneous movement) Results - Labs CBC & Chem 7: 10/10/18 08:35 10/10/18 10:54 Labs: Laboratory Last Values WBC 1.1 K/mm3 (4.5-11.0) L* 10/10/18 08:35 RBC 3.16 M/mm3 (3.65-5.03) L 10/10/18 08:35 Hgb 9.6 gm/dl (11.8-15.2) L 10/10/18 08:35 Hct 28.8 % (35.5-45.6) L 10/10/18 08:35 MCV 91 fl (84-94) 10/10/18 08:35 MCH 30 pg (28-32) 10/10/18 08:35 MCHC 33 % (32-34) 10/10/18 08:35 RDW 21.2 % (13.2-15.2) H 10/10/18 08:35 Plt Count 245 K/mm3 (140-440) 10/10/18 08:35 [place] % (Auto) Ballistics Professor 09/29/18 05:00 Eos % (Auto) Ballistics Professor 10/10/18 08:35 Baso % (Auto) Ballistics Professor 10/10/18 08:35 Add Manual Diff Complete 10/10/18 08:35 Total Counted 100 10/10/18 08:35 Seg Neutrophils % Ballistics Professor 10/10/18 08:35 Seg Neuts % (Manual) 27.0 % (40.0-70.0) L 10/10/18 08:35 Band Neutrophils % 0 % 10/10/18 08:35 Lymphocytes % (Manual) 29.0 % (13.4-35.0) 10/10/18 08:35 Reactive Lymphs % (Man) 0 % 10/10/18 08:35 Monocytes % (Manual) 9.0 % (0.0-7.3) H 10/10/18 08:35 Eosinophils % (Manual) 18.0 % (0.0-4.3) H 10/10/18 08:35 Basophils % (Manual) 12.0 % (0.0-1.8) H 10/10/18 08:35 Metamyelocytes % 0 % 10/10/18 08:35 Myelocytes % 5.0 % 10/10/18 08:35 Promyelocytes % 0 % 10/10/18 08:35 Blast Cells % 0 % 10/10/18 08:35 Nucleated RBC % Not Reportable 10/10/18 08:35 Seg Neutrophils # Man 0.3 K/mm3 (1.8-7.7) L 10/10/18 08:35 Band Neutrophils # 0.0 K/mm3 10/10/18 08:35 Abs Lymphs (Manual) 309 cells/uL (850-3900) L 09/13/18 12:29 Lymphocytes # (Manual) 0.3 K/mm3 (1.2-5.4) L 10/10/18 08:35 Abs React Lymphs (Man) 0.0 K/mm3 10/10/18 08:35 Monocytes # (Manual) 0.1 K/mm3 (0.0-0.8) 10/10/18 08:35 Eosinophils # (Manual) 0.2 K/mm3 (0.0-0.4) 10/10/18 08:35 Basophils # (Manual) 0.1 K/mm3 (0.0-0.1) 10/10/18 08:35 Metamyelocytes # 0.0 K/mm3 10/10/18 08:35 Myelocytes # 0.1 K/mm3 10/10/18 08:35 Promyelocytes # 0.0 K/mm3 10/10/18 08:35 Blast Cells # 0.0 K/mm3 10/10/18 08:35 WBC Morphology Not Reportable 10/10/18 08:35 Hypersegmented Neuts Not Reportable 10/10/18 08:35 Hyposegmented Neuts Not Reportable 10/10/18 08:35 Hypogranular Neuts Not Reportable 10/10/18 08:35 Smudge Cells Not Reportable 10/10/18 08:35 Toxic Granulation Not Reportable 10/10/18 08:35 Toxic Vacuolation Not Reportable 10/10/18 08:35 Dohle Bodies Not Reportable 10/10/18 08:35 Pelger-Huet Anomaly Not Reportable 10/10/18 08:35 Giovanna Rods Not Reportable 10/10/18 08:35 Platelet Estimate Consistent w auto 10/10/18 08:35 Clumped Platelets Not Reportable 10/10/18 08:35 Plt Clumps, EDTA Not Reportable 10/10/18 08:35 Large Platelets Not Reportable 10/10/18 08:35 Giant Platelets Not Reportable 10/10/18 08:35 Platelet Satelliting Not Reportable 10/10/18 08:35 Plt Morphology Comment Not Reportable 10/10/18 08:35 RBC Morphology Not Reportable 10/10/18 08:35 Dimorphic RBCs Not Reportable 10/10/18 08:35 Polychromasia Not Reportable 10/10/18 08:35 Hypochromasia Few 10/10/18 08:35 Poikilocytosis 1+ 10/10/18 08:35 Anisocytosis 1+ 10/10/18 08:35 Microcytosis Not Reportable 10/10/18 08:35 Macrocytosis 1+ 10/10/18 08:35 Spherocytes Not Reportable 10/10/18 08:35 Pappenheimer Bodies Not Reportable 10/10/18 08:35 Sickle Cells Not Reportable 10/10/18 08:35 Target Cells Not Reportable 10/10/18 08:35 Tear Drop Cells Not Reportable 10/10/18 08:35 Ovalocytes 1+ 10/10/18 08:35 Stomatocytes 1+ 09/29/18 05:00 Helmet Cells Not Reportable 10/10/18 08:35 [place] Bodies Not Reportable 10/10/18 08:35 [place] Rings Not Reportable 10/10/18 08:35 [place] Cells Not Reportable 10/10/18 08:35 Bite Cells Not Reportable 10/10/18 08:35 Crenated Cell Not Reportable 10/10/18 08:35 Elliptocytes Few 10/10/18 08:35 Acanthocytes (Spur) Not Reportable 10/10/18 08:35 Rouleaux Not Reportable 10/10/18 08:35 Hemoglobin C Crystals Not Reportable 10/10/18 08:35 Schistocytes Not Reportable 10/10/18 08:35 Malaria parasites Not Reportable 10/10/18 08:35 Kieran Bodies Not Reportable 10/10/18 08:35 Hem Pathologist Commnt No 10/10/18 08:35 PT 16.0 Sec. (12.2-14.9) H 10/10/18 08:09 INR 1.20 (0.87-1.13) H 10/10/18 08:09 APTT 40.9 Sec. (24.2-36.6) H 09/21/18 15:00 Heparin Anti-Xa Level 0.35 U.I./ml (0.3-0.7) 10/05/18 10:19 POC ABG pH 7.516 (7.35-7.45) H 10/07/18 15:38 POC ABG pCO2 32.1 (35-45) L 10/07/18 15:38 POC ABG pO2 93 (80-105) 10/07/18 15:38 POC ABG HCO3 26.0 10/07/18 15:38 POC ABG Total CO2 27 10/07/18 15:38 POC ABG O2 Sat 98 10/07/18 15:38 POC ABG Base Excess 3 10/07/18 15:38 FiO2 25 % 10/07/18 15:38 Sodium 142 mmol/L (137-145) 10/10/18 10:54 Potassium 5.5 mmol/L (3.6-5.0) H 10/10/18 10:54 Chloride 100.6 mmol/L (98-107) 10/10/18 10:54 Carbon Dioxide 20 mmol/L (22-30) L 10/10/18 10:54 Anion Gap 27 mmol/L 10/10/18 10:54 BUN 83 mg/dL (9-20) H 10/10/18 10:54 Creatinine 5.5 mg/dL (0.8-1.5) H 10/10/18 10:54 Estimated GFR 15 ml/min 10/10/18 10:54 BUN/Creatinine Ratio 15 % 10/10/18 10:54 Glucose 119 mg/dL (75-100) H 10/10/18 10:54 POC Glucose 96 (70-105) 10/10/18 16:49 Lactic Acid 0.90 mmol/L (0.7-2.0) 09/11/18 20:17 Calcium 8.4 mg/dL (8.4-10.2) 10/10/18 10:54 Phosphorus 3.10 mg/dL (2.5-4.5) D 09/27/18 04:11 Magnesium 1.40 mg/dL (1.7-2.3) L 10/03/18 13:23 Iron 35 ug/dL (49-181) L 10/06/18 09:40 TIBC 157 mcg/dL (250-450) L 10/06/18 09:40 Ferritin 1126.0 ng/mL (13.0-400.0) H 10/06/18 09:40 Total Bilirubin 0.30 mg/dL (0.1-1.2) 10/07/18 04:20 Direct Bilirubin < 0.2 mg/dL (0-0.2) 09/13/18 07:31 AST 30 units/L (5-40) 10/07/18 04:20 ALT 25 units/L (7-56) 10/07/18 04:20 Alkaline Phosphatase 57 units/L (35-129) 10/07/18 04:20 Ammonia 27.0 umol/L (25-60) 10/03/18 13:23 Total Creatine Kinase 685 units/L (55-170) H 09/21/18 04:25 CK-MB (CK-2) 3.5 ng/mL (0.0-4.0) 09/21/18 04:25 CK-MB (CK-2) Rel Index 0.5 (0-4) 09/21/18 04:25 NT-Pro-B Natriuret Pep 145.9 pg/mL (0-450) 09/18/18 16:07 Total Protein 5.5 g/dL (6.3-8.2) L 10/07/18 04:20 Albumin 2.2 g/dL (3.9-5) L 10/07/18 04:20 Albumin/Globulin Ratio 0.7 % 10/07/18 04:20 Vitamin B12 934.5 pg/mL (211-911) H 09/16/18 11:41 Folate 6.71 ng/mL (7.3-26.0) L 10/06/18 09:40 TSH 5.190 mlU/mL (0.270-4.200) H 09/18/18 12:46 Free T4 0.75 ng/dL (0.76-1.46) L 09/18/18 12:46 Urine Color [place] (Yellow) 09/11/18 Unknown Urine Turbidity Clear (Clear) 09/11/18 Unknown Urine pH 5.0 (5.0-7.0) 09/11/18 Unknown Ur Specific [place] 1.016 (1.003-1.030) 09/11/18 Unknown Urine Protein <15 mg/dl mg/dL (Negative) 09/11/18 Unknown Urine Glucose (UA) Neg mg/dL (Negative) 09/11/18 Unknown Urine Ketones Neg mg/dL (Negative) 09/11/18 Unknown Urine Blood Sm (Negative) 09/11/18 Unknown Urine Nitrite Neg (Negative) 09/11/18 Unknown Urine Bilirubin Neg (Negative) 09/11/18 Unknown Urine Urobilinogen < 2.0 mg/dL (<2.0) 09/11/18 Unknown Ur Leukocyte Esterase Neg (Negative) 09/11/18 Unknown Urine WBC (Auto) 1.0 /HPF (0.0-6.0) 09/11/18 Unknown Urine RBC (Auto) 3.0 /HPF (0.0-6.0) 09/11/18 Unknown Urine Mucus Few /HPF 09/11/18 Unknown CSF Appearance Bloody 10/10/18 Unknown CSF Color Red 10/10/18 Unknown CSF WBC 10 /mm3 (1-10) 10/10/18 Unknown CSF RBC 84738 /mm3 (0-0) 10/10/18 Unknown CSF Seg Neutrophils 14.0 % (0-6) 10/10/18 Unknown CSF Lymphocytes % 44.0 % (40-80) 10/10/18 Unknown CSF Reactive Lymphs 0 % 10/10/18 Unknown CSF Monocytes % 38.0 % (15-45) 10/10/18 Unknown CSF Eosinophils % 4.0 % 10/10/18 Unknown CSF Basophils 0 % 10/10/18 Unknown CSF Pathologist Review C 10/10/18 Unknown CSF Glucose 47 mg/dL 10/10/18 Unknown CSF Total Protein 84 mg/dL 10/10/18 Unknown CSF VDRL Reactive 1:4 (Nonreactive) H 09/19/18 15:00 Vancomycin Trough 14.3 ug/mL (5.0-20.0) 09/25/18 14:45 Urine Opiates Screen Presumptive negative 09/17/18 15:52 Urine Methadone Screen Presumptive negative 09/17/18 15:52 Ur Barbiturates Screen Presumptive negative 09/17/18 15:52 Ur Phencyclidine Scrn Presumptive negative 09/17/18 15:52 Ur Amphetamines Screen Presumptive negative 09/17/18 15:52 U Benzodiazepines Scrn Presumptive negative 09/17/18 15:52 Urine Cocaine Screen Presumptive negative 09/17/18 15:52 U Marijuana (THC) Screen Presumptive negative 09/17/18 15:52 Drugs of Abuse Note Disclamer 09/17/18 15:52 Lymph Enumerat CD4/CD8 0.01 (0.86-5.00) L 09/13/18 12:29 % CD3 Cells 71 % (57-85) 09/13/18 12:29 Absolute CD3 Count 220 cells/uL (840-3060) L 09/13/18 12:29 % CD4 Cells 1 % (30-61) L 09/13/18 12:29 Absolute CD4 Count 4 cells/uL (490-1740) L 09/13/18 12:29 % CD8 Cells 70 % (12-42) H 09/13/18 12:29 Absolute CD8 Count 216 cells/uL (180-1170) 09/13/18 12:29 % CD19 Cells 17 % (6-29) 09/13/18 12:29 Absolute CD19 Count 54 cells/uL (110-660) L 09/13/18 12:29 RPR Titer 1:16 09/13/18 12:29 RPR Reactive (Nonreactive) 09/13/18 12:29 T.pallidum Ab (FTA-ABS) Reactive (Nonreactive) H 09/14/18 16:34 C. difficile Toxin A&B Negative (Negative) 09/12/18 05:30 CMV DNA PCR log supervisor blueprinting and photocopy/mL See scanned results 10/03/18 06:12 Hepatitis A IgM Ab Non-reactive (NonReactive) 09/13/18 12:29 Hep Bs Antigen Non-reactive (Negative) 09/13/18 12:29 Hep B Core IgM Ab Non-reactive (NonReactive) 09/13/18 12:29 Hepatitis C Antibody Non-reactive (NonReactive) 09/13/18 12:29 HIV-1 Antibody See scanned result 09/11/18 19:14 HIV-1 RNA PCR copies/ml 08150 Copies/mL H 09/13/18 12:29 HIV-1 RNA (PCR) log 4.71 Log cps/mL H 09/13/18 12:29 HIV-2 Ab (Immunoblot) See scanned result 09/11/18 19:14 HIV 1&2 Antibody Rapid Reactive (Non React) 09/11/18 19:14 HIV P24 Antigen Non react (Non React) 09/11/18 19:14 Influenza A (Rapid) Negative (Negative) 09/13/18 16:05 Influenza A (RT-PCR) Negative (Negative) 09/13/18 16:05 Influenza B (Rapid) Negative (Negative) 09/13/18 16:05 Influenza B (RT-PCR) Negative (Negative) 09/13/18 16:05 Toxoplasma IgG Ab <7.20 IU/mL (<7.20) 09/16/18 12:09 Miscellaneous Test see below 09/21/18 03:55 Nutrition/Malnutrition Assess - Dietary Evaluation Nutrition/Malnutrition Findings: Nutrition Notes Start: 09/12/18 17:45 Freq: Status: Active Protocol: Document 10/07/18 11:44 CP (Rec: 10/07/18 11:51 CP [id number]) Co-Sign 02/22/19 11:44 LP Nutrition Notes Initial or Follow up Reassessment Current Diagnosis Acute Kidney Injury Sepsis Respiratory Failure Other Pertinent Diagnosis HIV, bilat pneu, gastroenteritis, encephalopathy Current Diet TF- Vital High Protein at 70ml /hr Labs/Tests Cr: 0.7 PRO: 5.5 Pertinent Medications Reviewed Height 6 ft Weight 118 kg [place] Body Weight (kg) 80.90 BMI 35.2 Subjective/Other Information Observed TF running at goal ( 70 mL). Per nurse, water flush of 150 mL was administered 08 :00 today. Percent of energy/protein needs met: 93%/91% Burn Absent Trauma Absent #2 Nutrition Diagnosis Inadequate oral intake Diagnosis Progress(for reassessment Continues documentation) #1 Nutrition Diagnosis Malnutrition Diagnosis Progress(for reassessment Continues documentation) Is patient on ventilator? Yes Is Patient Ambulatory and/or Out of Bed No REE-([facility]-confined to bed) 2597.352 Kcal/Kg value to use for calculation 15 Approximate Energy Requirements Using 1770 kcal/Kg Additional Notes Pro needs 2g/kg IBW: 162g/day Fluid needs 1ml/kcal Nutrition Intervention Change Diet Order: Continue TF Nutrition Support: Vital HP at 70ml/hr Kcal 1,680 Protein (gm) 147 Fluid (mL) 1,404 Goal #1 Continue to meet at least 80% of PRO and kcal needs with TF. Follow-Up By: 10/14/18 Additional Comments F/U: Stable TF/TF tolerance
--- NOTE | 2018-10-10 19:04 | Magnetic Resonance Report ---
FINAL REPORT EXAM: MR BRAIN WO CON HISTORY: persistent lethargy, nystagmus, LUE weaknessinpatient; pt not given contrast due to abnorm al lab results TECHNIQUE: MRI brain: Axial T1, T2 , FLAIR, diffusion, and gradient echo axial Sagittal T1 Coronal FLAIR PRIORS: None. FINDINGS: The ventricles and sulci are prominent for age, without change. The cerebral hemispheres are without focal lesions. There are no abnormal extra-axial fluid collections. There is no restricted diffusion. There is no evidence of acute intracranial hemorrhage. The brainstem and cerebellum appear normal. There is abnormal signal in the bilateral mastoid air cells. There is mucosal thickening in the bilat eral sphenoid sinuses and the left posterior ethmoid air cell. These findings are stable. There is mild mucosal thickening in the bilateral mastoid air cells, significantly greater than on th e previous exam. IMPRESSION: 1. Generalized loss of brain substance greater than expected for age. 2. Stable paranasal sinus disease 3. Significant interval progression of bilateral mastoiditis
[2018-10-10] MEDS: NACL 0.9% 1000 ML 1,000 ML IV SCH (19:28)
--- NOTE | 2018-10-10 22:31 | XRay Report ---
FINAL REPORT EXAM: XR ABDOMEN 1V AP HISTORY: Dobhoff /OG placed to replace NG TECHNIQUE: Supine AP view of the abdomen. PRIORS: 09/19/2018 FINDINGS: There is a feeding tube in place with the tip in the stomach without interval change. There are multi ple gas distended loops of bowel in the central abdomen, stable. The bones are unremarkable. IMPRESSION: Feeding tube tip in stomach without change Question ileus
[2018-10-11] MEDS: PROVENTIL IH SCH ×4 (02:48→19:29)
[2018-10-11 05:39] LABS: Hemoglobin 8.7 gm/dl (11.8-15.2); Mean Corpuscular HGB Conc 33 % (32-34); Mean Corpuscular Volume 90 fl (84-94); Platelet Count 216 K/mm3 (140-440); Red Blood Count 2.89 M/mm3 (3.65-5.03)
[2018-10-11 05:40] LABS: Red Cell Distribution Width 20.1 % (13.2-15.2)
[2018-10-11] MEDS: SYNTHROID PO SCH (05:57)
[2018-10-11] MEDS: ROBINUL PO SCH ×3 (05:57→17:41)
[2018-10-11] MEDS: NACL 0.9% 1000 ML 1,000 ML IV SCH ×3 (05:58→23:59)
[2018-10-11] MEDS: HEPARIN SUB-Q SCH ×3 (05:58→21:28)
[2018-10-11 06:03] LABS: Calcium 8.3 mg/dL (8.4-10.2)
[2018-10-11 06:27] LABS: Total Cells Counted 25
[2018-10-11 06:28] LABS: Anisocytosis 1+
[2018-10-11 06:29] LABS: Hypochromasia 1+; Ovalocytes 1+; Platelet Estimate Consistent w Auto
--- NOTE | 2018-10-11 07:03 | Progress Note ---
Assessment and Plan - Patient Problems (1) Acute kidney failure with tubular necrosis Current Visit: Yes Status: Acute Plan to address problem: Worsening renal function noted at this time with persistent fevers over the past 48 hours which can be a risk factor for MAL/pre-renal injury. Will increase IVF hydration with NS to 125 cc/hr. concern for worsening acute tubular necrosis. Please ensure that all antibiotics are dosed appropriately for renal function. Other concern is that the change in renal function may be a consequence of extensive exposure to antibiotics (karey penicillin) as an inpatient and possible manifestations of AIN. Will obtain repeat UA as well as UPC. Urine sample was sent this morning and we will follow up. Please ensure that all antibiotics are dosed appropriately for decreased renal clearance. There are no acute indications for renal replacement therapy at present. Continue current supportive care measures. Will be having to monitor renal functions very carefully daily. (2) Hyperkalemia Current Visit: Yes Status: Resolved Plan to address problem: In the setting of worsening renal function/MAL. Improving with IV fluid hydration. (3) Acute respiratory failure with hypoxia Current Visit: Yes Status: Acute Plan to address problem: Remains intubated. Recent Chest xray noted, with development of patchy infiltrates in the right lung. 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 Will continue to monitor. Remains very lethargic with only spontaneously opening eyes. Does not follow commands. Continue to monitor (5) Pancytopenia Current Visit: Yes Status: Acute Plan to address problem: In the setting of CMV viremia, HIV/AIDS. Will defer to primary team. (6) HIV (human immunodeficiency virus infection) Current Visit: Yes Status: Chronic Plan to address problem: Management per ID recommendations. (7) Hypernatremia Current Visit: Yes Status: Acute Plan to address problem: Hypernatremia has resolved at this time. Subjective Date of service: 10/11/18 Principal diagnosis: Severe sepsis; Ac hypoxemic Resp failure; [place]. Pneumonia; Ac encephalopathy Interval history: No acute changes overnight. His urine output is dropping into the oliguric range. He only produced 150 mL of urine over the security shift manager. Renal function is noted and is worsening. There is no acute indications for hemodialysis at this point. He was started on IV fluids at 100 mL an hour. Objective - Vital Signs Vital signs: Vital Signs - 12hr 10/10/18 10/10/18 10/10/18 19:00 19:49 20:00 Temperature 99.2 F Pulse Rate 97 H 95 H Pulse Rate [ Throughout] Respiratory 21 21 Rate Respiratory Rate [ Generalized] Respiratory Rate [ Throughout] Blood Pressure 119/66 116/67 O2 Sat by Pulse 100 100 Oximetry 10/10/18 10/10/18 10/10/18 20:22 20:26 20:35 Temperature Pulse Rate 97 H Pulse Rate [ 96 H 98 H Throughout] Respiratory Rate Respiratory Rate [ Generalized] Respiratory 21 20 Rate [ Throughout] Blood Pressure 116/67 O2 Sat by Pulse 100 Oximetry 10/10/18 10/10/18 10/10/18 21:00 22:00 22:06 Temperature Pulse Rate 94 H 96 H 195 H Pulse Rate [ Throughout] Respiratory 21 19 Rate Respiratory Rate [ Generalized] Respiratory Rate [ Throughout] Blood Pressure 119/69 135/75 135/75 O2 Sat by Pulse 99 100 Oximetry 10/10/18 10/10/18 10/10/18 23:00 23:30 23:45 Temperature 98.5 F Pulse Rate 95 H 92 H Pulse Rate [ Throughout] Respiratory 20 15 Rate Respiratory Rate [ Generalized] Respiratory Rate [ Throughout] Blood Pressure 125/71 125/71 O2 Sat by Pulse 100 100 Oximetry 10/11/18 10/11/18 10/11/18 00:00 01:00 02:00 Temperature Pulse Rate 89 89 88 Pulse Rate [ Throughout] Respiratory 22 25 H 19 Rate Respiratory 20 Rate [ Generalized] Respiratory Rate [ Throughout] Blood Pressure 126/75 137/79 120/69 O2 Sat by Pulse 100 100 100 Oximetry 10/11/18 10/11/18 10/11/18 02:47 03:00 03:03 Temperature 99.6 F Pulse Rate 89 Pulse Rate [ 90 Throughout] Respiratory 16 Rate Respiratory Rate [ Generalized] Respiratory 20 Rate [ Throughout] Blood Pressure 127/62 O2 Sat by Pulse 100 Oximetry 10/11/18 10/11/18 10/11/18 03:16 04:00 04:45 Temperature Pulse Rate 91 H 92 H Pulse Rate [ 89 Throughout] Respiratory 14 Rate Respiratory Rate [ Generalized] Respiratory 17 Rate [ Throughout] Blood Pressure 119/61 119/61 O2 Sat by Pulse 100 100 Oximetry 10/11/18 05:00 Temperature Pulse Rate 92 H Pulse Rate [ Throughout] Respiratory 24 Rate Respiratory Rate [ Generalized] Respiratory Rate [ Throughout] Blood Pressure 138/77 O2 Sat by Pulse 100 Oximetry - General Appearance General appearance: intubated EENT: ATNC, PERRL Neck: no JVD, no thyromegaly Respiratory: Present: Clear to Ascultation Cardiology: regular, S1S2 Gastrointestinal: normal, normoactive bowel sounds Integumentary: warm and dry Neurologic: other (patient is awake but does not respond purposefully. He does not follow any commands.) Musculoskeletal: other (mild nonpitting edema) - Lab 10/11/18 05:20 10/11/18 05:20 Most recent lab results Calcium 8.3 mg/dL (8.4-10.2) L 10/11/18 05:20 Phosphorus 3.10 mg/dL (2.5-4.5) D 09/27/18 04:11 Magnesium 1.40 mg/dL (1.7-2.3) L 10/03/18 13:23 - Allied health notes Allied health notes reviewed: nursing Medications & Allergies - Medications Allergies/Adverse Reactions: Allergies No Known Allergies Allergy (Unverified 09/11/18 17:50) Home Medications: Home Medications Medication Instructions Recorded Confirmed Last Taken Type No Known Home Medications [No 10/02/18 10/02/18 Unknown History Reported Home Medications] Active Medications: Generic Name Dose Route Start Last Admin Trade Name Freq PRN Reason Stop Dose Admin Acetaminophen 650 mg 09/11/18 19:30 10/09/18 16:32 Tylenol PO 650 mg Q4H PRN Administration Pain MILD(1-3)/Fever >100.5/RIVERA Acetaminophen 650 mg 09/21/18 07:39 10/07/18 21:15 Tylenol NE 650 mg Q4H PRN Administration Fever >101 Albuterol 2.5 mg 09/11/18 19:30 09/16/18 06:09 Proventil IH 2.5 mg Q4HRT PRN Administration Shortness Of Breath Albuterol 2.5 mg 09/20/18 20:00 10/11/18 02:48 Proventil IH 2.5 mg Q6HRT GIA Administration Amiodarone HCl 200 mg 09/27/18 15:00 10/10/18 22:06 Cordarone PO 200 mg BID GIA Administration Lipase/Protease/Amylase 1 each 09/30/18 12:01 Abril Gibbs 10,500 Unit FEEDTUBE PRN PRN For Clogged Feeding Tube Atovaquone 750 mg 09/21/18 10:00 10/10/18 22:06 Mepron PO 750 mg BID GIA Administration Azithromycin 1,200 mg 09/25/18 10:00 10/09/18 10:44 Zithromax PO 1,200 mg Wat[place] GIA Administration Emtricitabine 200 mg 10/13/18 10:00 Emtriva PO Q72HR GIA Famotidine 20 mg 10/10/18 10:00 10/10/18 09:25 Pepcid PO 20 mg DAILY GIA Administration Fluconazole 200 mg 10/05/18 12:00 10/10/18 09:26 Diflucan PO 200 mg QDAY GIA Administration Folic Acid 1 mg 10/07/18 10:00 10/10/18 09:25 Folvite PO 1 mg QDAY GIA Administration Glycopyrrolate 2 mg 10/07/18 18:00 10/11/18 05:57 Robinul PO 2 mg Q6HR GIA Administration Heparin Sodium (Porcine) 5,000 unit 10/05/18 14:00 10/11/18 05:58 Heparin SUB-Q 5,000 unit Q8HR GIA Administration Hydrophilic Ointment 1 applic 09/21/18 01:46 09/22/18 03:46 Vaseline Lip Therapy TP 1 applic Q2HR PRN Administration Dry Lips Levetiracetam 750 mg/ Sodium 107.5 mls @ 400 mls/hr 10/09/18 20:00 10/10/18 08:27 Chloride IV 400 mls/hr Q12H GIA Administration Ganciclovir Sodium 150 mg/ 250 mls @ 100 mls/hr 10/10/18 10:00 10/10/18 12:08 Sodium Chloride IV 100 mls/hr Q24HR GIA Administration Cefepime HCl 2 gm in 100 mls @ 200 mls/hr 10/10/18 11:30 10/10/18 14:48 Maxipime/Ns 2 Gm/100 Ml IV 200 mls/hr Q24HR GIA Administration Protocol Sodium Chloride 1,000 mls @ 100 mls/hr 10/10/18 16:00 10/11/18 05:58 Nacl 0.9% 1000 Ml IV 100 mls/hr DIRECT GIA Administration Levothyroxine Sodium 25 mcg 09/19/18 06:00 10/11/18 05:57 Synthroid PO 25 mcg DAILY@0600 GIA Administration Metoprolol Tartrate 12.5 mg 10/10/18 13:00 10/10/18 22:06 Lopressor PO 12.5 mg BID GIA Administration Multi-Ingred Cream/Lotion/Oil/Oint 1 applic 09/21/18 01:46 Artificial Tears Ophth Oint OU Q4HR PRN Dry Eye(s) Ondansetron HCl 4 mg 09/11/18 19:30 Zofran IV Q8H PRN Nausea And Vomiting Scopolamine 1 each 09/18/18 18:00 10/09/18 19:08 Transderm-Scop TD 1 each Q3D GIA Administration Simple Syrup 15 ml 09/30/18 12:01 10/07/18 06:18 Simple Syrup FEEDTUBE 15 ml PRN PRN Administration Hypoglycemia Simple Syrup 30 ml 09/30/18 12:01 Simple Syrup FEEDTUBE PRN PRN Hypoglycemia Sodium Bicarbonate 325 mg 09/30/18 12:01 Sodium Bicarbonate FEEDTUBE PRN PRN For Clogged Feeding Tube Sodium Chloride 10 ml 09/11/18 22:00 10/10/18 09:29 Sodium Chloride Flush Syringe 10 Ml IV 10 ml BID GIA Administration Sodium Chloride 10 ml 09/11/18 19:30 Sodium Chloride Flush Syringe 10 Ml IV PRN PRN LINE FLUSH Tenofovir Disoproxil Fumarate 300 mg 10/13/18 10:00 Viread PO Q72HR GIA
[2018-10-11 07:14] LABS: Bacteria,Urine 1+ /HPF (Negative); Bilirubin,Urine NEG (Negative); Blood,Urine MOD (Negative); Color,Urine Yellow (Yellow); Mucus,Urine FEW /HPF; Urobilinogen,Urine < 2.0 mg/dL (<2.0)
[2018-10-11 07:31] LABS: Chloride, Urine 35.1 mmolL (110-250); Creatinine,Urine 57.5 mg/dL (0.1-20.0); Protein/Creatinine Ratio,Urine 0.77
--- NOTE | 2018-10-11 07:36 | Hem/Onc Progress Note ---
Assessment and Plan 1. Leukopenia. ANC is 0.5. Neutropenic precaution is practical. 2. Anemia. We will investigate. 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 HAART has been started. At this time, there is no fever. 3. Human immunodeficiency virus, on HAART. 4. 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 5. Intubated. 6. On antibiotics for pneumonia. 7. History of ____ that is improved. 8. Looks at you, but does not communicate. 9. History of oral candidiasis. 10. Mention of giardiasis. 11. Encephalopathy. 12. RVR with atrial fibrillation. I will follow the patient during inpatient stay. At this time, his cytopenia is likely secondary to the HIV or the CMV. I will discuss with ID team to see if G-CSF support is an option. 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 high - nephrology - Patient Problems (1) Neutropenia Current Visit: Yes Status: Acute Subjective Date of service: 10/11/18 Principal diagnosis: low wbc Interval history: as per RN - plan for trach - peg Objective - Exam Narrative Exam: non verbal - Constitutional Vitals: Last Vital Signs Temp 99.6 F 10/11/18 03:03 Pulse 92 H 10/11/18 05:00 Resp 24 10/11/18 05:00 BP 138/77 10/11/18 05:00 Pulse Ox 100 10/11/18 05:00 General appearance: no acute distress Performance status: 4-completely disabled - EENT ENT: other (intubated) Lymph node exam: negative cervical - Respiratory Respiratory effort: Positive: other (on vent) Respiratory: bilateral: diminished - Cardiovascular Heart Sounds: Present: S1 & S2 Extremity abnormal: edema - Gastrointestinal General gastrointestinal: Present: soft Rectal Exam: deferred - Genitourinary Male genitourinary: Present: deferred - Integumentary Integumentary: warm - Neurologic Neurologic: other (on vent ) - Labs Lab Results: Laboratory Results - last 24 hr 10/10/18 10/10/18 10/10/18 08:09 08:35 10:54 WBC 1.1 L* RBC 3.16 L Hgb 9.6 L Hct 28.8 L MCV 91 MCH 30 MCHC 33 RDW 21.2 H Plt Count 245 Eos % (Auto) [employer] Baso % (Auto) [employer] Add Manual Diff Complete Total Counted 100 Seg Neutrophils % [employer] Seg Neuts % (Manual) 27.0 L Band Neutrophils % 0 Lymphocytes % (Manual) 29.0 Reactive Lymphs % (Man) 0 Monocytes % (Manual) 9.0 H Eosinophils % (Manual) 18.0 H Basophils % (Manual) 12.0 H Metamyelocytes % 0 Myelocytes % 5.0 Promyelocytes % 0 Blast Cells % 0 Nucleated RBC % Not Reportable Seg Neutrophils # Man 0.3 L Band Neutrophils # 0.0 Lymphocytes # (Manual) 0.3 L Abs React Lymphs (Man) 0.0 Monocytes # (Manual) 0.1 Eosinophils # (Manual) 0.2 Basophils # (Manual) 0.1 Metamyelocytes # 0.0 Myelocytes # 0.1 Promyelocytes # 0.0 Blast Cells # 0.0 WBC Morphology Not Reportable Hypersegmented Neuts Not Reportable Hyposegmented Neuts Not Reportable Hypogranular Neuts Not Reportable Smudge Cells Not Reportable Toxic Granulation Not Reportable Toxic Vacuolation Not Reportable Dohle Bodies Not Reportable Pelger-Huet Anomaly Not Reportable Giovanna Rods Not Reportable Platelet Estimate Consistent w auto Clumped Platelets Not Reportable Plt Clumps, EDTA Not Reportable Large Platelets Not Reportable Giant Platelets Not Reportable Platelet Satelliting Not Reportable Plt Morphology Comment Not Reportable RBC Morphology Not Reportable Dimorphic RBCs Not Reportable Polychromasia Not Reportable Hypochromasia Few Poikilocytosis 1+ Anisocytosis 1+ Microcytosis Not Reportable Macrocytosis 1+ Spherocytes Not Reportable Pappenheimer Bodies Not Reportable Sickle Cells Not Reportable Target Cells Not Reportable Tear Drop Cells Not Reportable Ovalocytes 1+ Helmet Cells Not Reportable [place] Bodies Not Reportable [place] Rings Not Reportable [place] Cells Not Reportable Bite Cells Not Reportable Crenated Cell Not Reportable Elliptocytes Few Acanthocytes (Spur) Not Reportable Rouleaux Not Reportable Hemoglobin C Crystals Not Reportable Schistocytes Not Reportable Malaria parasites Not Reportable Kieran Bodies Not Reportable Hem Pathologist Commnt No PT 16.0 H INR 1.20 H Sodium 142 Potassium 5.5 H Chloride 100.6 Carbon Dioxide 20 L Anion Gap 27 BUN 83 H Creatinine 5.5 H Estimated GFR 15 BUN/Creatinine Ratio 15 Glucose 119 H POC Glucose Calcium 8.4 Urine Color Urine Turbidity Urine pH Ur Specific [place] Urine Protein Urine Glucose (UA) Urine Ketones Urine Blood Urine Nitrite Urine Bilirubin Urine Urobilinogen Ur Leukocyte Esterase Urine WBC (Auto) Urine RBC (Auto) U Epithel Cells (Auto) Urine Bacteria (Auto) Urine Mucus Urine Creatinine Urine Sodium Urine Chloride Urine Total Protein CSF Appearance CSF Color CSF WBC CSF RBC CSF Seg Neutrophils CSF Lymphocytes % CSF Reactive Lymphs CSF Monocytes % CSF Eosinophils % CSF Basophils CSF Pathologist Review CSF Glucose CSF Total Protein 10/10/18 10/10/18 10/10/18 11:33 16:49 23:51 WBC RBC Hgb Hct MCV MCH MCHC RDW Plt Count Eos % (Auto) Baso % (Auto) Add Manual Diff Total Counted Seg Neutrophils % Seg Neuts % (Manual) Band Neutrophils % Lymphocytes % (Manual) Reactive Lymphs % (Man) Monocytes % (Manual) Eosinophils % (Manual) Basophils % (Manual) Metamyelocytes % Myelocytes % Promyelocytes % Blast Cells % Nucleated RBC % Seg Neutrophils # Man Band Neutrophils # Lymphocytes # (Manual) Abs React Lymphs (Man) Monocytes # (Manual) Eosinophils # (Manual) Basophils # (Manual) Metamyelocytes # Myelocytes # Promyelocytes # Blast Cells # WBC Morphology Hypersegmented Neuts Hyposegmented Neuts Hypogranular Neuts Smudge Cells Toxic Granulation Toxic Vacuolation Dohle Bodies Pelger-Huet Anomaly Giovanna Rods Platelet Estimate Clumped Platelets Plt Clumps, EDTA Large Platelets Giant Platelets Platelet Satelliting Plt Morphology Comment RBC Morphology Dimorphic RBCs Polychromasia Hypochromasia Poikilocytosis Anisocytosis Microcytosis Macrocytosis Spherocytes Pappenheimer Bodies Sickle Cells Target Cells Tear Drop Cells Ovalocytes Helmet Cells [place] Bodies [place] Rings [place] Cells Bite Cells Crenated Cell Elliptocytes Acanthocytes (Spur) Rouleaux Hemoglobin C Crystals Schistocytes Malaria parasites Kieran Bodies Hem Pathologist Commnt PT INR Sodium Potassium Chloride Carbon Dioxide Anion Gap BUN Creatinine Estimated GFR BUN/Creatinine Ratio Glucose POC Glucose 74 96 104 Calcium Urine Color Urine Turbidity Urine pH Ur Specific [place] Urine Protein Urine Glucose (UA) Urine Ketones Urine Blood Urine Nitrite Urine Bilirubin Urine Urobilinogen Ur Leukocyte Esterase Urine WBC (Auto) Urine RBC (Auto) U Epithel Cells (Auto) Urine Bacteria (Auto) Urine Mucus Urine Creatinine Urine Sodium Urine Chloride Urine Total Protein CSF Appearance CSF Color CSF WBC CSF RBC CSF Seg Neutrophils CSF Lymphocytes % CSF Reactive Lymphs CSF Monocytes % CSF Eosinophils % CSF Basophils CSF Pathologist Review CSF Glucose CSF Total Protein 10/10/18 10/10/18 10/11/18 Unknown Unknown 05:02 WBC RBC Hgb Hct MCV MCH MCHC RDW Plt Count Eos % (Auto) Baso % (Auto) Add Manual Diff Total Counted Seg Neutrophils % Seg Neuts % (Manual) Band Neutrophils % Lymphocytes % (Manual) Reactive Lymphs % (Man) Monocytes % (Manual) Eosinophils % (Manual) Basophils % (Manual) Metamyelocytes % Myelocytes % Promyelocytes % Blast Cells % Nucleated RBC % Seg Neutrophils # Man Band Neutrophils # Lymphocytes # (Manual) Abs React Lymphs (Man) Monocytes # (Manual) Eosinophils # (Manual) Basophils # (Manual) Metamyelocytes # Myelocytes # Promyelocytes # Blast Cells # WBC Morphology Hypersegmented Neuts Hyposegmented Neuts Hypogranular Neuts Smudge Cells Toxic Granulation Toxic Vacuolation Dohle Bodies Pelger-Huet Anomaly Giovanna Rods Platelet Estimate Clumped Platelets Plt Clumps, EDTA Large Platelets Giant Platelets Platelet Satelliting Plt Morphology Comment RBC Morphology Dimorphic RBCs Polychromasia Hypochromasia Poikilocytosis Anisocytosis Microcytosis Macrocytosis Spherocytes Pappenheimer Bodies Sickle Cells Target Cells Tear Drop Cells Ovalocytes Helmet Cells [place] Bodies [place] Rings [place] Cells Bite Cells Crenated Cell Elliptocytes Acanthocytes (Spur) Rouleaux Hemoglobin C Crystals Schistocytes Malaria parasites Kieran Bodies Hem Pathologist Commnt PT INR Sodium Potassium Chloride Carbon Dioxide Anion Gap BUN Creatinine Estimated GFR BUN/Creatinine Ratio Glucose POC Glucose 79 Calcium Urine Color Urine Turbidity Urine pH Ur Specific [place] Urine Protein Urine Glucose (UA) Urine Ketones Urine Blood Urine Nitrite Urine Bilirubin Urine Urobilinogen Ur Leukocyte Esterase Urine WBC (Auto) Urine RBC (Auto) U Epithel Cells (Auto) Urine Bacteria (Auto) Urine Mucus Urine Creatinine Urine Sodium Urine Chloride Urine Total Protein CSF Appearance Bloody CSF Color Red CSF WBC 10 CSF RBC 97688 CSF Seg Neutrophils 14.0 CSF Lymphocytes % 44.0 CSF Reactive Lymphs 0 CSF Monocytes % 38.0 CSF Eosinophils % 4.0 CSF Basophils 0 CSF Pathologist Review C CSF Glucose 47 CSF Total Protein 84 10/11/18 10/11/18 10/11/18 05:20 05:20 05:40 WBC 1.2 L* RBC 2.89 L Hgb 8.7 L Hct 26.0 L MCV 90 MCH 30 MCHC 33 RDW 20.1 H Plt Count 216 Eos % (Auto) [employer] Baso % (Auto) Add Manual Diff Complete Total Counted 25 Seg Neutrophils % Seg Neuts % (Manual) 48.0 Band Neutrophils % 4.0 Lymphocytes % (Manual) 8.0 L Reactive Lymphs % (Man) 0 Monocytes % (Manual) 12.0 H Eosinophils % (Manual) 24.0 H Basophils % (Manual) 4.0 H Metamyelocytes % 0 Myelocytes % 0 Promyelocytes % 0 Blast Cells % 0 Nucleated RBC % Not Reportable Seg Neutrophils # Man 0.6 L Band Neutrophils # 0.0 Lymphocytes # (Manual) 0.1 L Abs React Lymphs (Man) 0.0 Monocytes # (Manual) 0.1 Eosinophils # (Manual) 0.3 Basophils # (Manual) 0.0 Metamyelocytes # 0.0 Myelocytes # 0.0 Promyelocytes # 0.0 Blast Cells # 0.0 WBC Morphology Not Reportable Hypersegmented Neuts Not Reportable Hyposegmented Neuts Not Reportable Hypogranular Neuts Not Reportable Smudge Cells Not Reportable Toxic Granulation Not Reportable Toxic Vacuolation Not Reportable Dohle Bodies Not Reportable Pelger-Huet Anomaly Not Reportable Giovanna Rods Not Reportable Platelet Estimate Consistent w auto Clumped Platelets Not Reportable Plt Clumps, EDTA Not Reportable Large Platelets Not Reportable Giant Platelets Not Reportable Platelet Satelliting Not Reportable Plt Morphology Comment Not Reportable RBC Morphology Not Reportable Dimorphic RBCs Not Reportable Polychromasia Not Reportable Hypochromasia 1+ Poikilocytosis Not Reportable Anisocytosis 1+ Microcytosis Not Reportable Macrocytosis Not Reportable Spherocytes Not Reportable Pappenheimer Bodies Not Reportable Sickle Cells Not Reportable Target Cells Not Reportable Tear Drop Cells Not Reportable Ovalocytes 1+ Helmet Cells Not Reportable [place] Bodies Not Reportable [place] Rings Not Reportable [place] Cells Not Reportable Bite Cells Not Reportable Crenated Cell Not Reportable Elliptocytes Not Reportable Acanthocytes (Spur) Not Reportable Rouleaux Not Reportable Hemoglobin C Crystals Not Reportable Schistocytes Not Reportable Malaria parasites Not Reportable Kieran Bodies Not Reportable Hem Pathologist Commnt No PT INR Sodium 143 Potassium 4.9 Chloride 103.6 Carbon Dioxide 20 L Anion Gap 24 BUN 102 H Creatinine 6.7 H Estimated GFR 12 BUN/Creatinine Ratio 15 Glucose 79 POC Glucose Calcium 8.3 L Urine Color Yellow Urine Turbidity Slightly-cloudy Urine pH 5.0 Ur Specific [place] 1.012 Urine Protein 30 mg/dl Urine Glucose (UA) Neg Urine Ketones Neg Urine Blood Mod Urine Nitrite Neg Urine Bilirubin Neg Urine Urobilinogen < 2.0 Ur Leukocyte Esterase Neg Urine WBC (Auto) 8.0 H Urine RBC (Auto) 45.0 U Epithel Cells (Auto) 2.0 Urine Bacteria (Auto) 1+ Urine Mucus Few Urine Creatinine Urine Sodium Urine Chloride Urine Total Protein CSF Appearance CSF Color CSF WBC CSF RBC CSF Seg Neutrophils CSF Lymphocytes % CSF Reactive Lymphs CSF Monocytes % CSF Eosinophils % CSF Basophils CSF Pathologist Review CSF Glucose CSF Total Protein 10/11/18 05:40 WBC RBC Hgb Hct MCV MCH MCHC RDW Plt Count Eos % (Auto) Baso % (Auto) Add Manual Diff Total Counted Seg Neutrophils % Seg Neuts % (Manual) Band Neutrophils % Lymphocytes % (Manual) Reactive Lymphs % (Man) Monocytes % (Manual) Eosinophils % (Manual) Basophils % (Manual) Metamyelocytes % Myelocytes % Promyelocytes % Blast Cells % Nucleated RBC % Seg Neutrophils # Man Band Neutrophils # Lymphocytes # (Manual) Abs React Lymphs (Man) Monocytes # (Manual) Eosinophils # (Manual) Basophils # (Manual) Metamyelocytes # Myelocytes # Promyelocytes # Blast Cells # WBC Morphology Hypersegmented Neuts Hyposegmented Neuts Hypogranular Neuts Smudge Cells Toxic Granulation Toxic Vacuolation Dohle Bodies Pelger-Huet Anomaly Giovanna Rods Platelet Estimate Clumped Platelets Plt Clumps, EDTA Large Platelets Giant Platelets Platelet Satelliting Plt Morphology Comment RBC Morphology Dimorphic RBCs Polychromasia Hypochromasia Poikilocytosis Anisocytosis Microcytosis Macrocytosis Spherocytes Pappenheimer Bodies Sickle Cells Target Cells Tear Drop Cells Ovalocytes Helmet Cells [place] Bodies [place] Rings [place] Cells Bite Cells Crenated Cell Elliptocytes Acanthocytes (Spur) Rouleaux Hemoglobin C Crystals Schistocytes Malaria parasites Kieran Bodies Hem Pathologist Commnt PT INR Sodium Potassium Chloride Carbon Dioxide Anion Gap BUN Creatinine Estimated GFR BUN/Creatinine Ratio Glucose POC Glucose Calcium Urine Color Urine Turbidity Urine pH Ur Specific [place] Urine Protein Urine Glucose (UA) Urine Ketones Urine Blood Urine Nitrite Urine Bilirubin Urine Urobilinogen Ur Leukocyte Esterase Urine WBC (Auto) Urine RBC (Auto) U Epithel Cells (Auto) Urine Bacteria (Auto) Urine Mucus Urine Creatinine 57.5 H Urine Sodium 70 Urine Chloride 35.1 L Urine Total Protein 44 H CSF Appearance CSF Color CSF WBC CSF RBC CSF Seg Neutrophils CSF Lymphocytes % CSF Reactive Lymphs CSF Monocytes % CSF Eosinophils % CSF Basophils CSF Pathologist Review CSF Glucose CSF Total Protein Medications & Allergies - Medications Allergies/Adverse Reactions: Allergies No Known Allergies Allergy (Unverified 09/11/18 17:50) Home Medications: Home Medications Medication Instructions Recorded Confirmed Last Taken Type No Known Home Medications [No 10/02/18 10/02/18 Unknown History Reported Home Medications] Active Medications: Generic Name Dose Route Start Last Admin Trade Name Kalinq PRN Reason Stop Dose Admin Acetaminophen 650 mg 09/11/18 19:30 10/09/18 16:32 Tylenol PO 650 mg Q4H PRN Administration Pain MILD(1-3)/Fever >100.5/RIVERA Acetaminophen 650 mg 09/21/18 07:39 10/07/18 21:15 Tylenol MI 650 mg Q4H PRN Administration Fever >101 Albuterol 2.5 mg 09/11/18 19:30 09/16/18 06:09 Proventil IH 2.5 mg Q4HRT PRN Administration Shortness Of Breath Albuterol 2.5 mg 09/20/18 20:00 10/11/18 02:48 Proventil IH 2.5 mg Q6HRT GIA Administration Amiodarone HCl 200 mg 09/27/18 15:00 10/10/18 22:06 Cordarone PO 200 mg BID GIA Administration Lipase/Protease/Amylase 1 each 09/30/18 12:01 Abril Gibbs 10,500 Unit FEEDTUBE PRN PRN For Clogged Feeding Tube Atovaquone 750 mg 09/21/18 10:00 10/10/18 22:06 Mepron PO 750 mg BID GIA Administration Azithromycin 1,200 mg 09/25/18 10:00 10/09/18 10:44 Zithromax PO 1,200 mg Watlers GIA Administration Emtricitabine 200 mg 10/13/18 10:00 Emtriva PO Q96H GIA Famotidine 20 mg 10/10/18 10:00 10/10/18 09:25 Pepcid PO 20 mg DAILY GIA Administration Fluconazole 200 mg 10/05/18 12:00 10/10/18 09:26 Diflucan PO 200 mg QDAY GIA Administration Folic Acid 1 mg 10/07/18 10:00 10/10/18 09:25 Folvite PO 1 mg QDAY GIA Administration Glycopyrrolate 2 mg 10/07/18 18:00 10/11/18 05:57 Robinul PO 2 mg Q6HR GIA Administration Heparin Sodium (Porcine) 5,000 unit 10/05/18 14:00 10/11/18 05:58 Heparin SUB-Q 5,000 unit Q8HR GIA Administration Hydrophilic Ointment 1 applic 09/21/18 01:46 09/22/18 03:46 Vaseline Lip Therapy TP 1 applic Q2HR PRN Administration Dry Lips Levetiracetam 750 mg/ Sodium 107.5 mls @ 400 mls/hr 10/09/18 20:00 10/10/18 08:27 Chloride IV 400 mls/hr Q12H GIA Administration Cefepime HCl 2 gm in 100 mls @ 200 mls/hr 10/10/18 11:30 10/10/18 14:48 Maxipime/Ns 2 Gm/100 Ml IV 200 mls/hr Q24HR GIA Administration Protocol Sodium Chloride 1,000 mls @ 125 mls/hr 10/10/18 16:00 10/11/18 07:06 Nacl 0.9% 1000 Ml IV 125 mls/hr DIRECT GIA Infusion Ganciclovir Sodium 150 mg/ 250 mls @ 100 mls/hr 10/12/18 10:00 Sodium Chloride IV MoWeFr GIA Levothyroxine Sodium 25 mcg 09/19/18 06:00 10/11/18 05:57 Synthroid PO 25 mcg DAILY@0600 GIA Administration Metoprolol Tartrate 12.5 mg 10/10/18 13:00 10/10/18 22:06 Lopressor PO 12.5 mg BID GIA Administration Multi-Ingred Cream/Lotion/Oil/Oint 1 applic 09/21/18 01:46 Artificial Tears Ophth Oint OU Q4HR PRN Dry Eye(s) Ondansetron HCl 4 mg 09/11/18 19:30 Zofran IV Q8H PRN Nausea And Vomiting Scopolamine 1 each 09/18/18 18:00 10/09/18 19:08 Transderm-Scop TD 1 each Q3D GIA Administration Simple Syrup 15 ml 09/30/18 12:01 10/07/18 06:18 Simple Syrup FEEDTUBE 15 ml PRN PRN Administration Hypoglycemia Simple Syrup 30 ml 09/30/18 12:01 Simple Syrup FEEDTUBE PRN PRN Hypoglycemia Sodium Bicarbonate 325 mg 09/30/18 12:01 Sodium Bicarbonate FEEDTUBE PRN PRN For Clogged Feeding Tube Sodium Chloride 10 ml 09/11/18 22:00 10/10/18 09:29 Sodium Chloride Flush Syringe 10 Ml IV 10 ml BID GIA Administration Sodium Chloride 10 ml 09/11/18 19:30 Sodium Chloride Flush Syringe 10 Ml IV PRN PRN LINE FLUSH Tenofovir Disoproxil Fumarate 300 mg 10/13/18 10:00 Viread PO Q96H GIA
[2018-10-11] MEDS: CORDARONE PO SCH ×2 (09:11→21:30)
[2018-10-11] MEDS: MAXIPIME/NS 2 GM/100 ML 2 GM/100 ML BAG IV SCH (09:11)
[2018-10-11] MEDS: PEPCID PO SCH (09:11)
[2018-10-11] MEDS: DIFLUCAN PO SCH (09:12)
[2018-10-11] MEDS: TIVICAY PO SCH (09:12)
[2018-10-11] MEDS: MEPRON PO SCH ×2 (09:12→21:30)
--- NOTE | 2018-10-11 09:21 | Progress Note ---
Assessment and Plan Cultures: 09/11/2018 blood culture: no growth 09/13/2018 serum cryptococcus ag neg 09/14/2018 CSF cryptococcus ag neg 09/14/2018 stool Nona 09/15/2018 stool +Giardia ag 09/19/2018 CSF cryptococcus ag neg 09/21/2018 tracheal aspirate culture: Nona albicans 09/23/2018 blood culture: No growth 09/23/2018 Fungal blood culture: no growth thus far 10/09/2018 blood culture: No growth A/P: 33 y/o male with no PMH; admitted on 09/11/2018 due to 4 days-AMS/behavioral changes, nausea, vomiting, diarrhea, weight loss and cough: 1) Low grade fevers: continues since 10/08 NOW better ? likely IRIS related (ART started on 09/30) versus NGT-associated sinusitis/mastoiditis. shock resolved. Completed 10 days of Ceftriaxone, off since 10/03/2018. On ganciclovir for disseminated CMV. On vanco/cefepime for sinusitis/mastoiditis. 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 WBC remains low could be from CMV v/s ganciclovir. Clinically better - CMV DNA PCR 09/16/2018 is 1,058,978, 6 log - CMV DNA PCR 09/26/2018 is 710K, 5.85 log - CMV DNA PCR 10/03/2018 is 262K, 5.4 log 3) Acute respiratory failure: still on the vent, mainly due to mental status issues. PJP DFA negative. CXR stable without pneumonia. 4) Acute encephalopathy: NOT better; possibly from neurosyphilis v/s CMV encephalitis v/s metabolic etiology. Of note, MRI did not show ventriculitis. CSF YAYO virus DNA PCR neg. Toxo IgG negative. He has received 20 days of Pen G IV and Ganciclovir with minimal improvement, still somnolent and nystagmus noted ? neurosyphilis treatement failure ? other etiologies like metabolic, CVA. Discussed with neuro Dr Nazario EEG x 2 no epileptic activity - "Up to 4 EEGs over several months may be needed to capture interictal epileptiform activity". - repeat LP 10/10/3018 WBC 10, RBC 22K (traumatic), glu 47, prot 84 from 194, VDRL pending. - Seizures reported on 10/09-10/10 - CT head done showed mild atrophy. No acute intracranial abnormalities. Paranasal sinus disease and new opacification of m ultiple mastoid air cells on the right and a few on the left suggesting acute mastoiditis. - MRI brain repeat 10/10 significant bilateral mastoiditis, generalized brain atrophy and stable paranasal sinusitis 5) Neurosyphilis: CSF VDRL positive, off Ceftriaxone and back on IV Penicillin (will complete 21 days). 6) Diarrhea: likely due to Giardiasis as Giardia antigen positive in stool, in immunocompromised patient. Completed several days of Flagyl, stopped on 10/03/2018. 7) Oral candidiasis: on fluconazole, will need to continue as prophylaxis till immune reconstitution. 8) A.fib: cardiology following. On Amiodarone. 9) HIV/AIDS: newly diagnosed. Risk factor is MSM behavior. CD4=4. VL=50,700. 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 We started him on Tenofovir, Emtricitabine + Dolutegravir on 09/30/2018, watch closely for IRIS. 10) Neutropenia: likely from HIV/CMV myelosuppression. Also probably worse from ganciclovir. r/o disseminated MAC, thus far cultures negative. s/p neupogen 1 dose on 10/05/2018 11) MAL: worsening CrCl <10 12) NGT-associated sinusitis/mastoiditis, NGT changed to OGT. Recs: - renal con board - all antibiotics are renally adjusted for CrCl < 10 - completed IV Penicillin G 24 million units daily for 21 days on 10/08/2018 - continue IV Ganciclovir 5 mg/kg 3times a week - renally adjusted again today, continue till CMV PCR is <200 - will repeat CMV DNA PCR on 10/17/2018 - continue atovaquone and azithromycin prophylaxis - continue fluconazole 200 mg daily PO as prophylaxis - continue HAART: Tenofovir, Emtricitabine + Dolutegravir watch closely for IRIS - renally adjusted today - monitor daily CBC, BMP - s/p neupogen 1 dose on 10/05/2018, hematology on board now, agree with additional Neupogen as needed from ID standpoint Overall prognosis poor/complex case Will follow Alayna Menendez MD Infectious Diseases Stable Manager [facility] ([facility]) M [phone] O [phone] Subjective Date of service: 10/11/18 Principal diagnosis: low wbc Interval history: Patient remains alert but not following commands, intubated on AC fio2 25%, p6, open eyes, Spiking fever 100.5 but trending down. ROS: unable to obtain Objective - Exam Narrative Exam: Constitutional: Intubated alert no follows commands open eyes in NAD Head, Ears, Nose: Normocephalic, atraumatic. External ears, nose normal Eyes: Conjunctivae/corneas clear. No icterus. No ptosis.no nystagmus Neck:no JVD, left anterior neck large hard nodule non tender Oral: ETT, OGT Cardiovascular: tachycardic Respiratory: distant BS GI: Soft, non-tender; bowel sounds normal. No peritoneal signs Musculoskeletal: No pedal edema, no cyanosis. Skin: No rash or abscess. Hem/Lymphatic: No palpable cervical or supraclavicular nodes. No lymphangitis Psych: alert Neurological: alert, moves right hand, does not move left hand PICC line 2/6 - Constitutional Vitals: Vital Signs Temp Pulse Resp BP Pulse Ox 99.6 F 80 16 129/78 100 10/11/18 03:03 10/11/18 08:46 10/11/18 08:46 10/11/18 08:38 10/11/18 08:38 Temperature -Last 24 Hours Temperature 99.6 F Temperature 98.5 F Temperature 99.2 F Temperature 99.1 F Temperature 100.5 F - Labs CBC & Chem 7: 10/11/18 05:20 10/11/18 05:20 Labs: Abnormal lab results 10/10/18 10/10/18 10/11/18 Range/Units 08:35 10:54 05:20 WBC 1.2 L* (4.5-11.0) K/mm3 RBC 2.89 L (3.65-5.03) M/mm3 Hgb 8.7 L (11.8-15.2) gm/dl Hct 26.0 L (35.5-45.6) % RDW 20.1 H (13.2-15.2) % Seg Neuts % (Manual) 27.0 L (40.0-70.0) % Lymphocytes % (Manual) 8.0 L (13.4-35.0) % Monocytes % (Manual) 9.0 H 12.0 H (0.0-7.3) % Eosinophils % (Manual) 18.0 H 24.0 H (0.0-4.3) % Basophils % (Manual) 12.0 H 4.0 H (0.0-1.8) % Seg Neutrophils # Man 0.3 L 0.6 L (1.8-7.7) K/mm3 Lymphocytes # (Manual) 0.3 L 0.1 L (1.2-5.4) K/mm3 Potassium 5.5 H (3.6-5.0) mmol/L Carbon Dioxide 20 L (22-30) mmol/L BUN 83 H (9-20) mg/dL Creatinine 5.5 H (0.8-1.5) mg/dL Glucose 119 H (75-100) mg/dL Calcium (8.4-10.2) mg/dL Urine WBC (Auto) (0.0-6.0) /HPF Urine Creatinine (0.1-20.0) mg/dL Urine Chloride (110-250) mmolL Urine Total Protein (5-11.8) mg/dL 10/11/18 10/11/18 10/11/18 Range/Units 05:20 05:40 05:40 WBC (4.5-11.0) K/mm3 RBC (3.65-5.03) M/mm3 Hgb (11.8-15.2) gm/dl Hct (35.5-45.6) % RDW (13.2-15.2) % Seg Neuts % (Manual) (40.0-70.0) % Lymphocytes % (Manual) (13.4-35.0) % Monocytes % (Manual) (0.0-7.3) % Eosinophils % (Manual) (0.0-4.3) % Basophils % (Manual) (0.0-1.8) % Seg Neutrophils # Man (1.8-7.7) K/mm3 Lymphocytes # (Manual) (1.2-5.4) K/mm3 Potassium (3.6-5.0) mmol/L Carbon Dioxide 20 L (22-30) mmol/L BUN 102 H (9-20) mg/dL Creatinine 6.7 H (0.8-1.5) mg/dL Glucose (75-100) mg/dL Calcium 8.3 L (8.4-10.2) mg/dL Urine WBC (Auto) 8.0 H (0.0-6.0) /HPF Urine Creatinine 57.5 H (0.1-20.0) mg/dL Urine Chloride 35.1 L (110-250) mmolL Urine Total Protein 44 H (5-11.8) mg/dL
[2018-10-11 09:26] LABS: Creatine Kinase MB 2.6 ng/mL (0.0-4.0)
--- NOTE | 2018-10-11 09:41 | Anesthesia Consultation ---
Anesthesia Consult and Med Hx Date of service: 10/11/18 - Airway Anesthetic Teeth Evaluation: Poor ROM Head & Neck: Adequate Mental/Hyoid Distance: Adequate Mallampati Class: Class III Intubation Access Assessment: Good (pt found intubated from his last admission) - Pre-Operative Health Status ASA Pre-Surgery Classification: ASA4 Proposed Anesthetic Plan: MAC - Pulmonary Hx Asthma: No Hx Respiratory Symptoms: Yes COPD: No Hx Pneumonia: Yes - Cardiovascular System Hx Cardia Arrhythmia: Yes Hx Pacemaker: No Hx Internal Defibrillator: No - Central Nervous System Hx Psychiatric Problems: No - Endocrine Hx Renal Disease: Yes (ARF on this admission) Hx End Stage Renal Disease: No - Hematic Hx Anemia: Yes - Other Systems Hx Cancer: No - Additional Comments Anesthesia Medical History Comments: HIV/AIDS newly diagnosed; CMV; Afib RVR; Encephalopathy; gastroenteritis; Bacterial pneumonia; Sepsis
[2018-10-11] MEDS: LOPRESSOR PO SCH ×2 (09:42→21:29)
[2018-10-11] MEDS: SODIUM CHLORIDE FLUSH SYRINGE 10 ML IV SCH ×2 (09:44→21:30)
--- NOTE | 2018-10-11 09:55 | Anesthesia Day of Surgery ---
Anesthesia Day of Surgery - Day of Surgery Patient Examined: Yes Patient H&P Reviewed: Yes Patient is NPO: Yes Beta Blockers: Yes
[2018-10-11] MEDS: FOLVITE PO SCH (10:13)
[2018-10-11] MEDS ORDERED: DIPRIVAN 10 MG/ML IV ONE ×3 (10:16)
[2018-10-11] MEDS: KEPPRA 750 MG in NACL 0.9% 100 ML IV SCH ×3 (10:16→20:09)
[2018-10-11] MEDS ORDERED: SUBLIMAZE ONE (10:20)
[2018-10-11] MEDS ORDERED: DDAVP SUB-Q PRN (10:24)
[2018-10-11] MEDS ORDERED: VERSED ONE (10:50)
[2018-10-11] MEDS ORDERED: DDAVP IV ONE (11:00)
[2018-10-11] MEDS ORDERED: NACL 0.9% IV ONE (11:00)
--- NOTE | 2018-10-11 11:49 | Event Note ---
Date: 10/11/18 I was asked to speak with his sister before doing the procedure. She said that she was conflicted. She had not spoken to anybody about what our goals are for Mr. Perez. We had a long discussion about doing everything possible for him versus comfort care measures. I asked her to take into consideration what he would choose if he were able. She requested that we hold off on the procedure today to give her more time to decide what would be best for him long-term. I encouraged her to speak with the hospitalist and risk consulting treasury director to decide what the goals of care should be. We will hold off on the Trach and PEG today. Will be available as needed.
--- NOTE | 2018-10-11 12:57 | Progress Note ---
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) Elevated LFTs Neutropenia Thrombocytopenia (I had an extended discussion with his Sister over the phone and explained the concept of substituted judgement to her; she wants some time to make a decision) - awaiting tracheostomy - Nephrology evaluation ongoing (input appreciated; still non-oliguric) - Trach / PEG in am - CT Brain negative for acute bleed - S/P LP; large RBC's (? 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 - continue Robinul & scopolamine for secretion control (increased Robinul to q6h) - continue to hold all other sedating medications - will continue daytime SBT's for now while following mental status - continue anti-infective's per ID recs (ART has been started appropriately) - reglan stopped - continue supplemental oxygen to keep sats > 90% - continue bronchodilators with pulmonary hygiene per RT - Continue empiric and targeted anti-infective's per ID recs antibiotics per ID - continue set rate at 12/min - continue daily SBT's - daily SAT's once sedation resumed - continue IV heparin for NSTEMI - continue Robinul 2 mg q8h for secretions - IV amiodarone stopped - cardiology evaluation ongoing - diarrhea improved - continue fluconazole for candidiasis - watch for drug-drug interactions - continue enteral nutrition as tolerated - when resumed target sedation for RASS 0 to -1 - PT/OT/ROM exercises as tolerated - mobility protocol for pressure ulcer prophylaxis - continue GI & VTE prophylaxis - continue other care per attending / other consultants ...... re-evaluate in am & prn ..... care plan discussed with relative who will be here for his trach/peg on and all pertinent question were answered as best i could The high probability of a clinically significant, sudden or life threatening deterioration of the [cardiac, respiratory and neurologic] system(s) required my full and direct attention, intervention and personal management. The aggregate critical care time was [32] minutes. This time is in addition to time spent performing reported procedures but includes the following: [x] Data Review and interpretation [x] Patient assessment and monitoring of vital signs [x] Documentation [x] Medication orders and management Subjective Date of service: 10/11/18 Principal diagnosis: Severe sepsis; Ac hypoxemic Resp failure; [place]. Pneumonia; Ac encephalopathy Interval history: Patient is seen today for: Severe sepsis (present on admission with fever, tachycardia, hypotension and elevated lactate); Acute hypoxemic Respiratory fa ilure; Bilateral pneumonia; Acute encephalopathy (Toxic / Metabolic); Atrial Fibrillation with RVR Seen and examined at bedside; 24hour events reviewed; nursing and respiratory care staff consulted; no adverse overnight events reported to me; resting peacefully in bed; sister cancelled trach/PEG procedure and is torn about next steps and his prognosis overall; he remains on MVS; still with hemiparesis but a large element of ? non participation vs depression is noted Objective Vital Signs - 12hr 10/11/18 10/11/18 10/11/18 01:00 02:00 02:47 Temperature Pulse Rate 89 88 Pulse Rate [ From Monitor] Pulse Rate [ 90 Throughout] Respiratory 25 H 19 Rate Respiratory 20 Rate [ Generalized] Respiratory 20 Rate [ Throughout] Blood Pressure 137/79 120/69 O2 Sat by Pulse 100 100 Oximetry 10/11/18 10/11/18 10/11/18 03:00 03:03 03:16 Temperature 99.6 F Pulse Rate 89 Pulse Rate [ From Monitor] Pulse Rate [ 89 Throughout] Respiratory 16 Rate Respiratory Rate [ Generalized] Respiratory 17 Rate [ Throughout] Blood Pressure 127/62 O2 Sat by Pulse 100 Oximetry 10/11/18 10/11/18 10/11/18 04:00 04:45 05:00 Temperature Pulse Rate 91 H 92 H 92 H Pulse Rate [ From Monitor] Pulse Rate [ Throughout] Respiratory 14 24 Rate Respiratory Rate [ Generalized] Respiratory Rate [ Throughout] Blood Pressure 119/61 119/61 138/77 O2 Sat by Pulse 100 100 100 Oximetry 10/11/18 10/11/18 10/11/18 06:00 07:00 08:00 Temperature Pulse Rate 93 H 87 83 Pulse Rate [ 81 From Monitor] Pulse Rate [ Throughout] Respiratory 11 L 16 Rate Respiratory Rate [ Generalized] Respiratory Rate [ Throughout] Blood Pressure 132/79 130/75 129/78 O2 Sat by Pulse 100 100 100 Oximetry 10/11/18 10/11/18 10/11/18 08:38 08:40 08:46 Temperature Pulse Rate 84 Pulse Rate [ From Monitor] Pulse Rate [ 84 80 Throughout] Respiratory Rate Respiratory Rate [ Generalized] Respiratory 16 16 Rate [ Throughout] Blood Pressure 129/78 O2 Sat by Pulse 100 Oximetry 10/11/18 10/11/18 10/11/18 09:00 09:42 10:00 Temperature Pulse Rate 83 81 82 Pulse Rate [ From Monitor] Pulse Rate [ Throughout] Respiratory 14 Rate Respiratory Rate [ Generalized] Respiratory Rate [ Throughout] Blood Pressure 128/83 128/83 126/78 O2 Sat by Pulse 100 100 Oximetry 10/11/18 11:00 Temperature Pulse Rate 80 Pulse Rate [ From Monitor] Pulse Rate [ Throughout] Respiratory 16 Rate Respiratory Rate [ Generalized] Respiratory Rate [ Throughout] Blood Pressure 136/78 O2 Sat by Pulse 100 Oximetry Constitutional: lethargic, agitated, appears uncomfortable, other (orally intubated ETT at 23cm) Eyes: non-icteric ENT: oropharynx moist, other (ETT 25 cm NIKA) Neck: supple, no lymphadenopathy, other (no thyromegaly) Effort: normal Ascultation: Bilateral: rales, rhonchi (scant) Percussion: Bilateral: not dull Cardiovascular: regular rate and rhythm, other (S1,S2, no murmurs, gallps or rubs) Gastrointestinal: normoactive bowel sounds, soft, non-tender, non-distended Integumentary: rash Extremities: no cyanosis, pulses normal, no ischemia or petechiae, edema Neurologic: non-focal exam (grossly), pupils equal and round, other (Left sided hemiparesis) Psychiatric: other (unable to assess) CBC and BMP: 10/12/18 03:30 10/12/18 03:30 ABG, PT/INR, D-dimer: ABG POC ABG pH 7.516 (7.35-7.45) H 10/07/18 15:38 POC ABG pCO2 32.1 (35-45) L 10/07/18 15:38 POC ABG pO2 93 (80-105) 10/07/18 15:38 POC ABG HCO3 26.0 10/07/18 15:38 POC ABG Total CO2 27 10/07/18 15:38 POC ABG O2 Sat 98 10/07/18 15:38 PT/INR, D-dimer PT 16.0 Sec. (12.2-14.9) H 10/10/18 08:09 INR 1.20 (0.87-1.13) H 10/10/18 08:09 Abnormal lab findings: Abnormal Labs 09/11/18 09/11/18 09/11/18 18:00 18:00 18:00 WBC 1.9 L* RBC Hgb Hct RDW Plt Count 130 L Seg Neuts % (Manual) Lymphocytes % (Manual) Monocytes % (Manual) 16.0 H Eosinophils % (Manual) Basophils % (Manual) Nucleated RBC % Seg Neutrophils # Man 0.9 L Abs Lymphs (Manual) Lymphocytes # (Manual) 0.5 L PT INR APTT Heparin Anti-Xa Level POC ABG pH POC ABG pCO2 POC ABG pO2 Sodium 131 L Potassium Chloride Carbon Dioxide 17 L BUN 21 H Creatinine Glucose 126 H POC Glucose Lactic Acid 2.60 H* Calcium 8.1 L Phosphorus Magnesium Iron TIBC Ferritin AST 123 H ALT 115 H Total Creatine Kinase Total Protein Albumin 3.0 L Vitamin B12 Folate TSH Free T4 Urine WBC (Auto) Urine Creatinine Urine Chloride Urine Total Protein CSF VDRL Lymph Enumerat CD4/CD8 Absolute CD3 Count % CD4 Cells Absolute CD4 Count % CD8 Cells Absolute CD19 Count T.pallidum Ab (FTA-ABS) HIV-1 RNA PCR copies/ml HIV-1 RNA (PCR) log Miscellaneous Test 09/11/18 09/13/18 09/13/18 19:01 04:28 07:31 WBC 2.0 L RBC Hgb Hct RDW Plt Count 116 L Seg Neuts % (Manual) Lymphocytes % (Manual) Monocytes % (Manual) 8.0 H Eosinophils % (Manual) Basophils % (Manual) Nucleated RBC % Seg Neutrophils # Man 1.0 L Abs Lymphs (Manual) Lymphocytes # (Manual) 0.5 L PT INR APTT Heparin Anti-Xa Level POC ABG pH POC ABG pCO2 POC ABG pO2 Sodium Potassium Chloride 110.4 H Carbon Dioxide 19 L BUN Creatinine Glucose POC Glucose Lactic Acid 3.70 H* Calcium 7.9 L Phosphorus Magnesium Iron TIBC Ferritin AST ALT Total Creatine Kinase Total Protein Albumin Vitamin B12 Folate TSH Free T4 Urine WBC (Auto) Urine Creatinine Urine Chloride Urine Total Protein CSF VDRL Lymph Enumerat CD4/CD8 Absolute CD3 Count % CD4 Cells Absolute CD4 Count % CD8 Cells Absolute CD19 Count T.pallidum Ab (FTA-ABS) HIV-1 RNA PCR copies/ml HIV-1 RNA (PCR) log Miscellaneous Test 09/13/18 09/13/18 09/13/18 07:31 12:29 12:29 WBC RBC Hgb Hct RDW Plt Count Seg Neuts % (Manual) Lymphocytes % (Manual) Monocytes % (Manual) Eosinophils % (Manual) Basophils % (Manual) Nucleated RBC % Seg Neutrophils # Man Abs Lymphs (Manual) 309 L Lymphocytes # (Manual) PT INR APTT Heparin Anti-Xa Level POC ABG pH POC ABG pCO2 POC ABG pO2 Sodium Potassium Chloride Carbon Dioxide BUN Creatinine Glucose POC Glucose Lactic Acid Calcium Phosphorus Magnesium Iron TIBC Ferritin AST 70 H ALT 68 H Total Creatine Kinase Total Protein Albumin 2.5 L Vitamin B12 Folate TSH Free T4 Urine WBC (Auto) Urine Creatinine Urine Chloride Urine Total Protein CSF VDRL Lymph Enumerat CD4/CD8 0.01 L Absolute CD3 Count 220 L % CD4 Cells 1 L Absolute CD4 Count 4 L % CD8 Cells 70 H Absolute CD19 Count 54 L T.pallidum Ab (FTA-ABS) HIV-1 RNA PCR copies/ml 35865 H HIV-1 RNA (PCR) log 4.71 H Miscellaneous Test 09/13/18 09/14/18 09/14/18 12:29 07:17 16:34 WBC RBC Hgb Hct RDW Plt Count Seg Neuts % (Manual) Lymphocytes % (Manual) Monocytes % (Manual) Eosinophils % (Manual) Basophils % (Manual) Nucleated RBC % Seg Neutrophils # Man Abs Lymphs (Manual) Lymphocytes # (Manual) PT INR APTT Heparin Anti-Xa Level POC ABG pH POC ABG pCO2 POC ABG pO2 Sodium Potassium 3.4 L Chloride Carbon Dioxide 18 L BUN Creatinine Glucose 104 H POC Glucose Lactic Acid Calcium 7.6 L Phosphorus Magnesium Iron TIBC Ferritin AST 49 H ALT Total Creatine Kinase Total Protein Albumin 2.5 L Vitamin B12 Folate TSH Free T4 Urine WBC (Auto) Urine Creatinine Urine Chloride Urine Total Protein CSF VDRL Lymph Enumerat CD4/CD8 Absolute CD3 Count % CD4 Cells Absolute CD4 Count % CD8 Cells Absolute CD19 Count T.pallidum Ab (FTA-ABS) Reactive H HIV-1 RNA PCR copies/ml HIV-1 RNA (PCR) log Miscellaneous Test Flexitest 1 H 01/09/15/18 09/15/18 05:05 05:05 Unknown WBC 1.6 L* RBC Hgb 10.4 L Hct 31.1 L D RDW Plt Count 113 L Seg Neuts % (Manual) Lymphocytes % (Manual) Monocytes % (Manual) Eosinophils % (Manual) Basophils % (Manual) Nucleated RBC % Seg Neutrophils # Man Abs Lymphs (Manual) Lymphocytes # (Manual) PT INR APTT Heparin Anti-Xa Level POC ABG pH POC ABG pCO2 POC ABG pO2 Sodium Potassium Chloride 107.9 H Carbon Dioxide 18 L BUN 6 L Creatinine Glucose POC Glucose Lactic Acid Calcium 7.4 L Phosphorus Magnesium Iron TIBC Ferritin AST ALT Total Creatine Kinase Total Protein Albumin Vitamin B12 Folate TSH Free T4 Urine WBC (Auto) Urine Creatinine Urine Chloride Urine Total Protein CSF VDRL Reactive 1:8 H Lymph Enumerat CD4/CD8 Absolute CD3 Count % CD4 Cells Absolute CD4 Count % CD8 Cells Absolute CD19 Count T.pallidum Ab (FTA-ABS) HIV-1 RNA PCR copies/ml HIV-1 RNA (PCR) log Miscellaneous Test 09/16/18 09/16/18 09/16/18 06:55 11:41 11:41 WBC 2.8 L RBC Hgb 10.9 L Hct 33.5 L RDW Plt Count 135 L Seg Neuts % (Manual) Lymphocytes % (Manual) Monocytes % (Manual) Eosinophils % (Manual) Basophils % (Manual) Nucleated RBC % Seg Neutrophils # Man Abs Lymphs (Manual) Lymphocytes # (Manual) PT INR APTT Heparin Anti-Xa Level POC ABG pH POC ABG pCO2 POC ABG pO2 Sodium Potassium Chloride Carbon Dioxide BUN Creatinine Glucose POC Glucose Lactic Acid Calcium Phosphorus Magnesium Iron TIBC Ferritin AST ALT Total Creatine Kinase Total Protein Albumin Vitamin B12 Folate TSH 4.210 H Free T4 0.72 L Urine WBC (Auto) Urine Creatinine Urine Chloride Urine Total Protein CSF VDRL Lymph Enumerat CD4/CD8 Absolute CD3 Count % CD4 Cells Absolute CD4 Count % CD8 Cells Absolute CD19 Count T.pallidum Ab (FTA-ABS) HIV-1 RNA PCR copies/ml HIV-1 RNA (PCR) log Miscellaneous Test 09/16/18 09/16/18 09/17/18 11:41 15:43 05:13 WBC 2.0 L RBC Hgb 10.9 L Hct 32.7 L RDW Plt Count Seg Neuts % (Manual) Lymphocytes % (Manual) Monocytes % (Manual) Eosinophils % (Manual) Basophils % (Manual) Nucleated RBC % Seg Neutrophils # Man Abs Lymphs (Manual) Lymphocytes # (Manual) PT INR APTT Heparin Anti-Xa Level POC ABG pH POC ABG pCO2 29.3 L POC ABG pO2 70 L Sodium Potassium Chloride Carbon Dioxide BUN Creatinine Glucose POC Glucose Lactic Acid Calcium Phosphorus Magnesium Iron TIBC Ferritin AST ALT Total Creatine Kinase Total Protein Albumin Vitamin B12 934.5 H Folate TSH Free T4 Urine WBC (Auto) Urine Creatinine Urine Chloride Urine Total Protein CSF VDRL Lymph Enumerat CD4/CD8 Absolute CD3 Count % CD4 Cells Absolute CD4 Count % CD8 Cells Absolute CD19 Count T.pallidum Ab (FTA-ABS) HIV-1 RNA PCR copies/ml HIV-1 RNA (PCR) log Miscellaneous Test 09/17/18 09/17/18 09/18/18 05:13 21:57 12:46 WBC RBC Hgb Hct RDW Plt Count Seg Neuts % (Manual) Lymphocytes % (Manual) Monocytes % (Manual) Eosinophils % (Manual) Basophils % (Manual) Nucleated RBC % Seg Neutrophils # Man Abs Lymphs (Manual) Lymphocytes # (Manual) PT INR APTT Heparin Anti-Xa Level POC ABG pH POC ABG pCO2 POC ABG pO2 Sodium Potassium Chloride 107.2 H Carbon Dioxide 21 L BUN 3 L Creatinine 0.7 L Glucose POC Glucose 108 H Lactic Acid Calcium 7.9 L Phosphorus Magnesium Iron TIBC Ferritin AST ALT Total Creatine Kinase Total Protein 6.1 L Albumin 2.6 L Vitamin B12 Folate TSH Free T4 0.75 L Urine WBC (Auto) Urine Creatinine Urine Chloride Urine Total Protein CSF VDRL Lymph Enumerat CD4/CD8 Absolute CD3 Count % CD4 Cells Absolute CD4 Count % CD8 Cells Absolute CD19 Count T.pallidum Ab (FTA-ABS) HIV-1 RNA PCR copies/ml HIV-1 RNA (PCR) log Miscellaneous Test 09/18/18 09/19/18 09/19/18 12:46 04:57 04:57 WBC 2.1 L RBC Hgb 11.4 L Hct 34.2 L RDW Plt Count Seg Neuts % (Manual) Lymphocytes % (Manual) Monocytes % (Manual) Eosinophils % (Manual) Basophils % (Manual) Nucleated RBC % Seg Neutrophils # Man Abs Lymphs (Manual) Lymphocytes # (Manual) PT INR APTT Heparin Anti-Xa Level POC ABG pH POC ABG pCO2 POC ABG pO2 Sodium Potassium Chloride Carbon Dioxide 19 L BUN 6 L Creatinine Glucose POC Glucose Lactic Acid Calcium 7.9 L Phosphorus Magnesium Iron TIBC Ferritin AST ALT Total Creatine Kinase Total Protein Albumin Vitamin B12 Folate TSH 5.190 H Free T4 Urine WBC (Auto) Urine Creatinine Urine Chloride Urine Total Protein CSF VDRL Lymph Enumerat CD4/CD8 Absolute CD3 Count % CD4 Cells Absolute CD4 Count % CD8 Cells Absolute CD19 Count T.pallidum Ab (FTA-ABS) HIV-1 RNA PCR copies/ml HIV-1 RNA (PCR) log Miscellaneous Test 09/19/18 09/19/18 09/20/18 15:00 15:00 05:33 WBC RBC Hgb Hct RDW Plt Count Seg Neuts % (Manual) Lymphocytes % (Manual) Monocytes % (Manual) Eosinophils % (Manual) Basophils % (Manual) Nucleated RBC % Seg Neutrophils # Man Abs Lymphs (Manual) Lymphocytes # (Manual) PT INR APTT Heparin Anti-Xa Level POC ABG pH POC ABG pCO2 POC ABG pO2 Sodium 136 L Potassium Chloride Carbon Dioxide 19 L BUN 7 L Creatinine Glucose POC Glucose Lactic Acid Calcium Phosphorus Magnesium Iron TIBC Ferritin AST ALT Total Creatine Kinase Total Protein Albumin Vitamin B12 Folate TSH Free T4 Urine WBC (Auto) Urine Creatinine Urine Chloride Urine Total Protein CSF VDRL Reactive 1:4 H Lymph Enumerat CD4/CD8 Absolute CD3 Count % CD4 Cells Absolute CD4 Count % CD8 Cells Absolute CD19 Count T.pallidum Ab (FTA-ABS) HIV-1 RNA PCR copies/ml HIV-1 RNA (PCR) log Miscellaneous Test Flexitest 1 H 09/20/18 09/21/18 09/21/18 06:52 01:06 03:49 WBC 2.5 L RBC Hgb Hct RDW Plt Count Seg Neuts % (Manual) Lymphocytes % (Manual) Monocytes % (Manual) Eosinophils % (Manual) Basophils % (Manual) Nucleated RBC % Seg Neutrophils # Man Abs Lymphs (Manual) Lymphocytes # (Manual) PT INR APTT Heparin Anti-Xa Level POC ABG pH 7.159 L POC ABG pCO2 32.9 L 70.0 H POC ABG pO2 62 L 254 H Sodium Potassium Chloride Carbon Dioxide BUN Creatinine Glucose POC Glucose Lactic Acid Calcium Phosphorus Magnesium Iron TIBC Ferritin AST ALT Total Creatine Kinase Total Protein Albumin Vitamin B12 Folate TSH Free T4 Urine WBC (Auto) Urine Creatinine Urine Chloride Urine Total Protein CSF VDRL Lymph Enumerat CD4/CD8 Absolute CD3 Count % CD4 Cells Absolute CD4 Count % CD8 Cells Absolute CD19 Count T.pallidum Ab (FTA-ABS) HIV-1 RNA PCR copies/ml HIV-1 RNA (PCR) log Miscellaneous Test 09/21/18 09/21/18 09/21/18 04:15 04:15 04:25 WBC 3.1 L RBC Hgb 11.6 L Hct RDW Plt Count Seg Neuts % (Manual) Lymphocytes % (Manual) Monocytes % (Manual) 12.0 H Eosinophils % (Manual) Basophils % (Manual) Nucleated RBC % Seg Neutrophils # Man 1.6 L Abs Lymphs (Manual) Lymphocytes # (Manual) 0.5 L PT INR APTT Heparin Anti-Xa Level POC ABG pH POC ABG pCO2 POC ABG pO2 Sodium Potassium 6.1 H* D Chloride Carbon Dioxide 19 L BUN Creatinine Glucose 108 H POC Glucose Lactic Acid Calcium Phosphorus Magnesium Iron TIBC Ferritin AST ALT Total Creatine Kinase 685 H Total Protein Albumin Vitamin B12 Folate TSH Free T4 Urine WBC (Auto) Urine Creatinine Urine Chloride Urine Total Protein CSF VDRL Lymph Enumerat CD4/CD8 Absolute CD3 Count % CD4 Cells Absolute CD4 Count % CD8 Cells Absolute CD19 Count T.pallidum Ab (FTA-ABS) HIV-1 RNA PCR copies/ml HIV-1 RNA (PCR) log Miscellaneous Test 09/21/18 09/21/18 09/21/18 09:59 10:07 11:00 WBC RBC Hgb 11.7 L Hct RDW Plt Count Seg Neuts % (Manual) Lymphocytes % (Manual) Monocytes % (Manual) Eosinophils % (Manual) Basophils % (Manual) Nucleated RBC % Seg Neutrophils # Man Abs Lymphs (Manual) Lymphocytes # (Manual) PT INR APTT Heparin Anti-Xa Level POC ABG pH 7.301 L POC ABG pCO2 POC ABG pO2 109 H Sodium Potassium 6.5 H* Chloride Carbon Dioxide 18 L BUN Creatinine 2.1 H D Glucose POC Glucose Lactic Acid Calcium 8.1 L Phosphorus Magnesium Iron TIBC Ferritin AST 94 H ALT Total Creatine Kinase Total Protein Albumin 2.8 L Vitamin B12 Folate TSH Free T4 Urine WBC (Auto) Urine Creatinine Urine Chloride Urine Total Protein CSF VDRL Lymph Enumerat CD4/CD8 Absolute CD3 Count % CD4 Cells Absolute CD4 Count % CD8 Cells Absolute CD19 Count T.pallidum Ab (FTA-ABS) HIV-1 RNA PCR copies/ml HIV-1 RNA (PCR) log Miscellaneous Test 09/21/18 09/21/18 09/21/18 15:00 21:54 21:54 WBC RBC Hgb Hct RDW Plt Count Seg Neuts % (Manual) Lymphocytes % (Manual) Monocytes % (Manual) Eosinophils % (Manual) Basophils % (Manual) Nucleated RBC % Seg Neutrophils # Man Abs Lymphs (Manual) Lymphocytes # (Manual) PT 19.9 H INR 1.65 H APTT 40.9 H Heparin Anti-Xa Level 0.98 H POC ABG pH POC ABG pCO2 POC ABG pO2 Sodium Potassium 5.2 H Chloride Carbon Dioxide BUN Creatinine Glucose POC Glucose Lactic Acid Calcium Phosphorus Magnesium Iron TIBC Ferritin AST ALT Total Creatine Kinase Total Protein Albumin Vitamin B12 Folate TSH Free T4 Urine WBC (Auto) Urine Creatinine Urine Chloride Urine Total Protein CSF VDRL Lymph Enumerat CD4/CD8 Absolute CD3 Count % CD4 Cells Absolute CD4 Count % CD8 Cells Absolute CD19 Count T.pallidum Ab (FTA-ABS) HIV-1 RNA PCR copies/ml HIV-1 RNA (PCR) log Miscellaneous Test 09/21/18 09/22/18 09/22/18 22:57 03:01 05:27 WBC RBC Hgb Hct RDW Plt Count Seg Neuts % (Manual) Lymphocytes % (Manual) Monocytes % (Manual) Eosinophils % (Manual) Basophils % (Manual) Nucleated RBC % Seg Neutrophils # Man Abs Lymphs (Manual) Lymphocytes # (Manual) PT INR APTT Heparin Anti-Xa Level POC ABG pH POC ABG pCO2 32.7 L POC ABG pO2 Sodium Potassium Chloride Carbon Dioxide BUN Creatinine Glucose POC Glucose 124 H 128 H Lactic Acid Calcium Phosphorus Magnesium Iron TIBC Ferritin AST ALT Total Creatine Kinase Total Protein Albumin Vitamin B12 Folate TSH Free T4 Urine WBC (Auto) Urine Creatinine Urine Chloride Urine Total Protein CSF VDRL Lymph Enumerat CD4/CD8 Absolute CD3 Count % CD4 Cells Absolute CD4 Count % CD8 Cells Absolute CD19 Count T.pallidum Ab (FTA-ABS) HIV-1 RNA PCR copies/ml HIV-1 RNA (PCR) log Miscellaneous Test 09/22/18 09/22/18 09/22/18 07:00 07:00 11:32 WBC 1.8 L* RBC 3.59 L Hgb 10.1 L Hct 30.8 L RDW Plt Count 126 L Seg Neuts % (Manual) Lymphocytes % (Manual) Monocytes % (Manual) Eosinophils % (Manual) Basophils % (Manual) Nucleated RBC % Seg Neutrophils # Man Abs Lymphs (Manual) Lymphocytes # (Manual) PT INR APTT Heparin Anti-Xa Level POC ABG pH POC ABG pCO2 POC ABG pO2 Sodium Potassium Chloride Carbon Dioxide BUN 27 H Creatinine 2.0 H Glucose 128 H POC Glucose 123 H Lactic Acid Calcium 6.9 L Phosphorus Magnesium Iron TIBC Ferritin AST ALT Total Creatine Kinase Total Protein Albumin Vitamin B12 Folate TSH Free T4 Urine WBC (Auto) Urine Creatinine Urine Chloride Urine Total Protein CSF VDRL Lymph Enumerat CD4/CD8 Absolute CD3 Count % CD4 Cells Absolute CD4 Count % CD8 Cells Absolute CD19 Count T.pallidum Ab (FTA-ABS) HIV-1 RNA PCR copies/ml HIV-1 RNA (PCR) log Miscellaneous Test 09/22/18 09/22/18 09/22/18 15:52 18:18 23:52 WBC RBC Hgb Hct RDW Plt Count Seg Neuts % (Manual) Lymphocytes % (Manual) Monocytes % (Manual) Eosinophils % (Manual) Basophils % (Manual) Nucleated RBC % Seg Neutrophils # Man Abs Lymphs (Manual) Lymphocytes # (Manual) PT INR APTT Heparin Anti-Xa Level POC ABG pH POC ABG pCO2 48.7 H POC ABG pO2 Sodium Potassium Chloride Carbon Dioxide BUN Creatinine Glucose POC Glucose 110 H 124 H Lactic Acid Calcium Phosphorus Magnesium Iron TIBC Ferritin AST ALT Total Creatine Kinase Total Protein Albumin Vitamin B12 Folate TSH Free T4 Urine WBC (Auto) Urine Creatinine Urine Chloride Urine Total Protein CSF VDRL Lymph Enumerat CD4/CD8 Absolute CD3 Count % CD4 Cells Absolute CD4 Count % CD8 Cells Absolute CD19 Count T.pallidum Ab (FTA-ABS) HIV-1 RNA PCR copies/ml HIV-1 RNA (PCR) log Miscellaneous Test 09/23/18 09/23/18 09/23/18 04:10 05:55 05:55 WBC RBC Hgb 10.0 L Hct 30.3 L RDW Plt Count 117 L Seg Neuts % (Manual) Lymphocytes % (Manual) Monocytes % (Manual) Eosinophils % (Manual) Basophils % (Manual) Nucleated RBC % Seg Neutrophils # Man Abs Lymphs (Manual) Lymphocytes # (Manual) PT INR APTT Heparin Anti-Xa Level 0.26 L POC ABG pH POC ABG pCO2 POC ABG pO2 144 H Sodium Potassium Chloride Carbon Dioxide BUN Creatinine Glucose POC Glucose Lactic Acid Calcium Phosphorus Magnesium Iron TIBC Ferritin AST ALT Total Creatine Kinase Total Protein Albumin Vitamin B12 Folate TSH Free T4 Urine WBC (Auto) Urine Creatinine Urine Chloride Urine Total Protein CSF VDRL Lymph Enumerat CD4/CD8 Absolute CD3 Count % CD4 Cells Absolute CD4 Count % CD8 Cells Absolute CD19 Count T.pallidum Ab (FTA-ABS) HIV-1 RNA PCR copies/ml HIV-1 RNA (PCR) log Miscellaneous Test 09/23/18 09/23/18 09/23/18 08:10 08:10 23:57 WBC 1.3 L* RBC 3.53 L Hgb 9.9 L Hct 30.0 L RDW Plt Count 119 L Seg Neuts % (Manual) Lymphocytes % (Manual) Monocytes % (Manual) Eosinophils % (Manual) Basophils % (Manual) Nucleated RBC % Seg Neutrophils # Man Abs Lymphs (Manual) Lymphocytes # (Manual) PT INR APTT Heparin Anti-Xa Level POC ABG pH POC ABG pCO2 POC ABG pO2 Sodium Potassium Chloride Carbon Dioxide BUN Creatinine Glucose 122 H POC Glucose 115 H Lactic Acid Calcium 6.9 L Phosphorus Magnesium Iron TIBC Ferritin AST ALT Total Creatine Kinase Total Protein Albumin Vitamin B12 Folate TSH Free T4 Urine WBC (Auto) Urine Creatinine Urine Chloride Urine Total Protein CSF VDRL Lymph Enumerat CD4/CD8 Absolute CD3 Count % CD4 Cells Absolute CD4 Count % CD8 Cells Absolute CD19 Count T.pallidum Ab (FTA-ABS) HIV-1 RNA PCR copies/ml HIV-1 RNA (PCR) log Miscellaneous Test 09/24/18 09/24/18 09/24/18 12:04 14:42 18:10 WBC RBC Hgb Hct RDW Plt Count Seg Neuts % (Manual) Lymphocytes % (Manual) Monocytes % (Manual) Eosinophils % (Manual) Basophils % (Manual) Nucleated RBC % Seg Neutrophils # Man Abs Lymphs (Manual) Lymphocytes # (Manual) PT INR APTT Heparin Anti-Xa Level 0.76 H POC ABG pH POC ABG pCO2 POC ABG pO2 Sodium Potassium Chloride Carbon Dioxide BUN Creatinine Glucose POC Glucose 111 H 138 H Lactic Acid Calcium Phosphorus Magnesium Iron TIBC Ferritin AST ALT Total Creatine Kinase Total Protein Albumin Vitamin B12 Folate TSH Free T4 Urine WBC (Auto) Urine Creatinine Urine Chloride Urine Total Protein CSF VDRL Lymph Enumerat CD4/CD8 Absolute CD3 Count % CD4 Cells Absolute CD4 Count % CD8 Cells Absolute CD19 Count T.pallidum Ab (FTA-ABS) HIV-1 RNA PCR copies/ml HIV-1 RNA (PCR) log Miscellaneous Test 09/25/18 09/25/18 09/25/18 03:45 04:24 14:20 WBC RBC Hgb 9.7 L Hct 29.4 L RDW Plt Count 104 L Seg Neuts % (Manual) Lymphocytes % (Manual) Monocytes % (Manual) Eosinophils % (Manual) Basophils % (Manual) Nucleated RBC % Seg Neutrophils # Man Abs Lymphs (Manual) Lymphocytes # (Manual) PT INR APTT Heparin Anti-Xa Level POC ABG pH 7.460 H POC ABG pCO2 32.9 L POC ABG pO2 Sodium Potassium 3.5 L Chloride 110.3 H Carbon Dioxide BUN Creatinine Glucose 105 H POC Glucose Lactic Acid Calcium 6.7 L Phosphorus Magnesium Iron TIBC Ferritin AST 633 H ALT 481 H Total Creatine Kinase Total Protein 4.8 L D Albumin 1.9 L Vitamin B12 Folate TSH Free T4 Urine WBC (Auto) Urine Creatinine Urine Chloride Urine Total Protein CSF VDRL Lymph Enumerat CD4/CD8 Absolute CD3 Count % CD4 Cells Absolute CD4 Count % CD8 Cells Absolute CD19 Count T.pallidum Ab (FTA-ABS) HIV-1 RNA PCR copies/ml HIV-1 RNA (PCR) log Miscellaneous Test 09/26/18 09/26/18 09/26/18 06:15 06:15 10:43 WBC 1.2 L* RBC 3.32 L Hgb 9.2 L Hct 28.6 L RDW Plt Count 97 L Seg Neuts % (Manual) 24.0 L Lymphocytes % (Manual) 43.0 H Monocytes % (Manual) 19.0 H Eosinophils % (Manual) 8.0 H Basophils % (Manual) 2.0 H Nucleated RBC % 3.0 H Seg Neutrophils # Man 0.0 L Abs Lymphs (Manual) Lymphocytes # (Manual) 0.0 L PT INR APTT Heparin Anti-Xa Level POC ABG pH 7.459 H POC ABG pCO2 POC ABG pO2 141 H Sodium Potassium Chloride 112.8 H Carbon Dioxide BUN Creatinine Glucose 110 H POC Glucose Lactic Acid Calcium 7.0 L Phosphorus 0.90 L* Magnesium Iron TIBC Ferritin AST 362 H ALT 360 H Total Creatine Kinase Total Protein 4.9 L Albumin 1.5 L Vitamin B12 Folate TSH Free T4 Urine WBC (Auto) Urine Creatinine Urine Chloride Urine Total Protein CSF VDRL Lymph Enumerat CD4/CD8 Absolute CD3 Count % CD4 Cells Absolute CD4 Count % CD8 Cells Absolute CD19 Count T.pallidum Ab (FTA-ABS) HIV-1 RNA PCR copies/ml HIV-1 RNA (PCR) log Miscellaneous Test 09/26/18 09/27/18 09/28/18 13:56 04:11 07:49 WBC RBC Hgb 9.1 L Hct 29.1 L RDW Plt Count 96 L Seg Neuts % (Manual) Lymphocytes % (Manual) Monocytes % (Manual) Eosinophils % (Manual) Basophils % (Manual) Nucleated RBC % Seg Neutrophils # Man Abs Lymphs (Manual) Lymphocytes # (Manual) PT INR APTT Heparin Anti-Xa Level POC ABG pH POC ABG pCO2 POC ABG pO2 Sodium 146 H Potassium Chloride 111.6 H Carbon Dioxide BUN Creatinine Glucose POC Glucose 135 H Lactic Acid Calcium 7.4 L Phosphorus Magnesium Iron TIBC Ferritin AST ALT Total Creatine Kinase Total Protein Albumin Vitamin B12 Folate TSH Free T4 Urine WBC (Auto) Urine Creatinine Urine Chloride Urine Total Protein CSF VDRL Lymph Enumerat CD4/CD8 Absolute CD3 Count % CD4 Cells Absolute CD4 Count % CD8 Cells Absolute CD19 Count T.pallidum Ab (FTA-ABS) HIV-1 RNA PCR copies/ml HIV-1 RNA (PCR) log Miscellaneous Test 09/28/18 09/29/18 09/29/18 10:43 05:00 05:00 WBC 1.2 L* RBC 3.13 L Hgb 8.6 L Hct 27.3 L RDW Plt Count 137 L Seg Neuts % (Manual) Lymphocytes % (Manual) Monocytes % (Manual) 16.0 H Eosinophils % (Manual) Basophils % (Manual) Nucleated RBC % 4.0 H Seg Neutrophils # Man 0.5 L Abs Lymphs (Manual) Lymphocytes # (Manual) 0.3 L PT INR APTT Heparin Anti-Xa Level POC ABG pH 7.300 L POC ABG pCO2 53.9 H POC ABG pO2 Sodium 147 H Potassium 3.4 L Chloride 114.5 H Carbon Dioxide BUN Creatinine Glucose POC Glucose Lactic Acid Calcium 7.7 L Phosphorus Magnesium Iron TIBC Ferritin AST 69 H ALT 110 H Total Creatine Kinase Total Protein 5.2 L Albumin 1.9 L Vitamin B12 Folate TSH Free T4 Urine WBC (Auto) Urine Creatinine Urine Chloride Urine Total Protein CSF VDRL Lymph Enumerat CD4/CD8 Absolute CD3 Count % CD4 Cells Absolute CD4 Count % CD8 Cells Absolute CD19 Count T.pallidum Ab (FTA-ABS) HIV-1 RNA PCR copies/ml HIV-1 RNA (PCR) log Miscellaneous Test 09/29/18 09/29/18 09/30/18 06:07 13:22 05:19 WBC 0.9 L* RBC 3.03 L Hgb 8.6 L Hct 25.9 L RDW Plt Count Seg Neuts % (Manual) Lymphocytes % (Manual) Monocytes % (Manual) Eosinophils % (Manual) Basophils % (Manual) Nucleated RBC % Seg Neutrophils # Man Abs Lymphs (Manual) Lymphocytes # (Manual) PT INR APTT Heparin Anti-Xa Level POC ABG pH POC ABG pCO2 46.9 H POC ABG pO2 Sodium Potassium Chloride Carbon Dioxide BUN Creatinine Glucose POC Glucose 109 H Lactic Acid Calcium Phosphorus Magnesium Iron TIBC Ferritin AST ALT Total Creatine Kinase Total Protein Albumin Vitamin B12 Folate TSH Free T4 Urine WBC (Auto) Urine Creatinine Urine Chloride Urine Total Protein CSF VDRL Lymph Enumerat CD4/CD8 Absolute CD3 Count % CD4 Cells Absolute CD4 Count % CD8 Cells Absolute CD19 Count T.pallidum Ab (FTA-ABS) HIV-1 RNA PCR copies/ml HIV-1 RNA (PCR) log Miscellaneous Test 09/30/18 09/30/18 09/30/18 05:19 11:14 23:28 WBC RBC Hgb Hct RDW Plt Count Seg Neuts % (Manual) Lymphocytes % (Manual) Monocytes % (Manual) Eosinophils % (Manual) Basophils % (Manual) Nucleated RBC % Seg Neutrophils # Man Abs Lymphs (Manual) Lymphocytes # (Manual) PT INR APTT Heparin Anti-Xa Level 0.72 H POC ABG pH POC ABG pCO2 46.6 H POC ABG pO2 Sodium 150 H Potassium Chloride 115.2 H Carbon Dioxide BUN Creatinine Glucose POC Glucose Lactic Acid Calcium 7.9 L Phosphorus Magnesium Iron TIBC Ferritin AST ALT Total Creatine Kinase Total Protein Albumin Vitamin B12 Folate TSH Free T4 Urine WBC (Auto) Urine Creatinine Urine Chloride Urine Total Protein CSF VDRL Lymph Enumerat CD4/CD8 Absolute CD3 Count % CD4 Cells Absolute CD4 Count % CD8 Cells Absolute CD19 Count T.pallidum Ab (FTA-ABS) HIV-1 RNA PCR copies/ml HIV-1 RNA (PCR) log Miscellaneous Test 10/01/18 10/01/18 10/02/18 04:55 04:55 07:15 WBC 0.9 L* 0.7 L* RBC 3.01 L 2.92 L Hgb 8.4 L 8.4 L Hct 26.0 L 24.9 L RDW Plt Count Seg Neuts % (Manual) Lymphocytes % (Manual) Monocytes % (Manual) Eosinophils % (Manual) Basophils % (Manual) Nucleated RBC % Seg Neutrophils # Man Abs Lymphs (Manual) Lymphocytes # (Manual) PT INR APTT Heparin Anti-Xa Level POC ABG pH POC ABG pCO2 POC ABG pO2 Sodium 147 H Potassium 3.4 L Chloride 113.1 H Carbon Dioxide BUN 22 H Creatinine Glucose POC Glucose Lactic Acid Calcium 7.3 L Phosphorus Magnesium Iron TIBC Ferritin AST ALT Total Creatine Kinase Total Protein Albumin Vitamin B12 Folate TSH Free T4 Urine WBC (Auto) Urine Creatinine Urine Chloride Urine Total Protein CSF VDRL Lymph Enumerat CD4/CD8 Absolute CD3 Count % CD4 Cells Absolute CD4 Count % CD8 Cells Absolute CD19 Count T.pallidum Ab (FTA-ABS) HIV-1 RNA PCR copies/ml HIV-1 RNA (PCR) log Miscellaneous Test 10/02/18 10/03/18 10/03/18 07:15 06:12 06:12 WBC 0.8 L* RBC 2.96 L Hgb 8.5 L Hct 25.9 L RDW 15.4 H Plt Count Seg Neuts % (Manual) Lymphocytes % (Manual) Monocytes % (Manual) Eosinophils % (Manual) Basophils % (Manual) Nucleated RBC % Seg Neutrophils # Man Abs Lymphs (Manual) Lymphocytes # (Manual) PT INR APTT Heparin Anti-Xa Level POC ABG pH POC ABG pCO2 POC ABG pO2 Sodium Potassium 3.4 L 3.4 L Chloride 108.3 H Carbon Dioxide BUN Creatinine Glucose POC Glucose Lactic Acid Calcium 7.6 L 7.4 L Phosphorus Magnesium Iron TIBC Ferritin AST ALT Total Creatine Kinase Total Protein Albumin Vitamin B12 Folate TSH Free T4 Urine WBC (Auto) Urine Creatinine Urine Chloride Urine Total Protein CSF VDRL Lymph Enumerat CD4/CD8 Absolute CD3 Count % CD4 Cells Absolute CD4 Count % CD8 Cells Absolute CD19 Count T.pallidum Ab (FTA-ABS) HIV-1 RNA PCR copies/ml HIV-1 RNA (PCR) log Miscellaneous Test 10/03/18 10/03/18 10/04/18 11:45 13:23 01:40 WBC RBC Hgb Hct RDW Plt Count Seg Neuts % (Manual) Lymphocytes % (Manual) Monocytes % (Manual) Eosinophils % (Manual) Basophils % (Manual) Nucleated RBC % Seg Neutrophils # Man Abs Lymphs (Manual) Lymphocytes # (Manual) PT INR APTT Heparin Anti-Xa Level 1.34 H 0.26 L POC ABG pH POC ABG pCO2 POC ABG pO2 Sodium Potassium Chloride Carbon Dioxide BUN Creatinine Glucose POC Glucose Lactic Acid Calcium Phosphorus Magnesium 1.40 L Iron TIBC Ferritin AST ALT Total Creatine Kinase Total Protein Albumin Vitamin B12 Folate TSH Free T4 Urine WBC (Auto) Urine Creatinine Urine Chloride Urine Total Protein CSF VDRL Lymph Enumerat CD4/CD8 Absolute CD3 Count % CD4 Cells Absolute CD4 Count % CD8 Cells Absolute CD19 Count T.pallidum Ab (FTA-ABS) HIV-1 RNA PCR copies/ml HIV-1 RNA (PCR) log Miscellaneous Test 10/04/18 10/04/18 10/06/18 04:45 04:45 09:40 WBC 0.8 L* RBC 3.11 L Hgb 9.0 L Hct 27.4 L RDW 15.4 H Plt Count Seg Neuts % (Manual) Lymphocytes % (Manual) Monocytes % (Manual) Eosinophils % (Manual) Basophils % (Manual) Nucleated RBC % Seg Neutrophils # Man Abs Lymphs (Manual) Lymphocytes # (Manual) PT INR APTT Heparin Anti-Xa Level POC ABG pH POC ABG pCO2 POC ABG pO2 Sodium Potassium Chloride Carbon Dioxide BUN Creatinine 0.7 L Glucose POC Glucose Lactic Acid Calcium 7.5 L Phosphorus Magnesium Iron 35 L TIBC 157 L Ferritin AST ALT Total Creatine Kinase Total Protein Albumin Vitamin B12 Folate TSH Free T4 Urine WBC (Auto) Urine Creatinine Urine Chloride Urine Total Protein CSF VDRL Lymph Enumerat CD4/CD8 Absolute CD3 Count % CD4 Cells Absolute CD4 Count % CD8 Cells Absolute CD19 Count T.pallidum Ab (FTA-ABS) HIV-1 RNA PCR copies/ml HIV-1 RNA (PCR) log Miscellaneous Test 10/06/18 10/06/18 10/07/18 09:40 09:40 04:20 WBC 1.1 L* RBC 3.07 L Hgb 9.1 L Hct 27.3 L RDW 20.3 H Plt Count Seg Neuts % (Manual) Lymphocytes % (Manual) Monocytes % (Manual) Eosinophils % (Manual) Basophils % (Manual) Nucleated RBC % Seg Neutrophils # Man 0.7 L Abs Lymphs (Manual) Lymphocytes # (Manual) 0.3 L PT INR APTT Heparin Anti-Xa Level POC ABG pH POC ABG pCO2 POC ABG pO2 Sodium Potassium Chloride Carbon Dioxide BUN Creatinine Glucose POC Glucose Lactic Acid Calcium Phosphorus Magnesium Iron TIBC Ferritin 1126.0 H AST ALT Total Creatine Kinase Total Protein Albumin Vitamin B12 Folate 6.71 L TSH Free T4 Urine WBC (Auto) Urine Creatinine Urine Chloride Urine Total Protein CSF VDRL Lymph Enumerat CD4/CD8 Absolute CD3 Count % CD4 Cells Absolute CD4 Count % CD8 Cells Absolute CD19 Count T.pallidum Ab (FTA-ABS) HIV-1 RNA PCR copies/ml HIV-1 RNA (PCR) log Miscellaneous Test 10/07/18 10/07/18 10/09/18 04:20 15:38 04:20 WBC 1.1 L* RBC 3.35 L Hgb 9.9 L Hct 30.1 L RDW 21.4 H Plt Count Seg Neuts % (Manual) 19.0 L Lymphocytes % (Manual) 42.0 H Monocytes % (Manual) 18.0 H Eosinophils % (Manual) 15.0 H Basophils % (Manual) 2.0 H Nucleated RBC % Seg Neutrophils # Man 0.2 L Abs Lymphs (Manual) Lymphocytes # (Manual) 0.5 L PT INR APTT Heparin Anti-Xa Level POC ABG pH 7.516 H POC ABG pCO2 32.1 L POC ABG pO2 Sodium Potassium Chloride Carbon Dioxide BUN Creatinine 0.7 L Glucose POC Glucose Lactic Acid Calcium 7.9 L Phosphorus Magnesium Iron TIBC Ferritin AST ALT Total Creatine Kinase Total Protein 5.5 L Albumin 2.2 L Vitamin B12 Folate TSH Free T4 Urine WBC (Auto) Urine Creatinine Urine Chloride Urine Total Protein CSF VDRL Lymph Enumerat CD4/CD8 Absolute CD3 Count % CD4 Cells Absolute CD4 Count % CD8 Cells Absolute CD19 Count T.pallidum Ab (FTA-ABS) HIV-1 RNA PCR copies/ml HIV-1 RNA (PCR) log Miscellaneous Test 10/09/18 10/09/18 10/09/18 04:20 11:48 17:31 WBC RBC Hgb Hct RDW Plt Count Seg Neuts % (Manual) Lymphocytes % (Manual) Monocytes % (Manual) Eosinophils % (Manual) Basophils % (Manual) Nucleated RBC % Seg Neutrophils # Man Abs Lymphs (Manual) Lymphocytes # (Manual) PT INR APTT Heparin Anti-Xa Level POC ABG pH POC ABG pCO2 POC ABG pO2 Sodium Potassium 5.4 H Chloride Carbon Dioxide 21 L BUN 55 H 72 H Creatinine 3.8 H D 4.5 H Glucose 118 H POC Glucose 124 H Lactic Acid Calcium 8.3 L 8.2 L Phosphorus Magnesium Iron TIBC Ferritin AST ALT Total Creatine Kinase Total Protein Albumin Vitamin B12 Folate TSH Free T4 Urine WBC (Auto) Urine Creatinine Urine Chloride Urine Total Protein CSF VDRL Lymph Enumerat CD4/CD8 Absolute CD3 Count % CD4 Cells Absolute CD4 Count % CD8 Cells Absolute CD19 Count T.pallidum Ab (FTA-ABS) HIV-1 RNA PCR copies/ml HIV-1 RNA (PCR) log Miscellaneous Test 10/10/18 10/10/18 10/10/18 08:09 08:35 10:54 WBC 1.1 L* RBC 3.16 L Hgb 9.6 L Hct 28.8 L RDW 21.2 H Plt Count Seg Neuts % (Manual) 27.0 L Lymphocytes % (Manual) Monocytes % (Manual) 9.0 H Eosinophils % (Manual) 18.0 H Basophils % (Manual) 12.0 H Nucleated RBC % Seg Neutrophils # Man 0.3 L Abs Lymphs (Manual) Lymphocytes # (Manual) 0.3 L PT 16.0 H INR 1.20 H APTT Heparin Anti-Xa Level POC ABG pH POC ABG pCO2 POC ABG pO2 Sodium Potassium 5.5 H Chloride Carbon Dioxide 20 L BUN 83 H Creatinine 5.5 H Glucose 119 H POC Glucose Lactic Acid Calcium Phosphorus Magnesium Iron TIBC Ferritin AST ALT Total Creatine Kinase Total Protein Albumin Vitamin B12 Folate TSH Free T4 Urine WBC (Auto) Urine Creatinine Urine Chloride Urine Total Protein CSF VDRL Lymph Enumerat CD4/CD8 Absolute CD3 Count % CD4 Cells Absolute CD4 Count % CD8 Cells Absolute CD19 Count T.pallidum Ab (FTA-ABS) HIV-1 RNA PCR copies/ml HIV-1 RNA (PCR) log Miscellaneous Test 10/11/18 10/11/18 10/11/18 05:20 05:20 05:40 WBC 1.2 L* RBC 2.89 L Hgb 8.7 L Hct 26.0 L RDW 20.1 H Plt Count Seg Neuts % (Manual) Lymphocytes % (Manual) 8.0 L Monocytes % (Manual) 12.0 H Eosinophils % (Manual) 24.0 H Basophils % (Manual) 4.0 H Nucleated RBC % Seg Neutrophils # Man 0.6 L Abs Lymphs (Manual) Lymphocytes # (Manual) 0.1 L PT INR APTT Heparin Anti-Xa Level POC ABG pH POC ABG pCO2 POC ABG pO2 Sodium Potassium Chloride Carbon Dioxide 20 L BUN 102 H Creatinine 6.7 H Glucose POC Glucose Lactic Acid Calcium 8.3 L Phosphorus Magnesium Iron TIBC Ferritin AST ALT Total Creatine Kinase Total Protein Albumin Vitamin B12 Folate TSH Free T4 Urine WBC (Auto) 8.0 H Urine Creatinine Urine Chloride Urine Total Protein CSF VDRL Lymph Enumerat CD4/CD8 Absolute CD3 Count % CD4 Cells Absolute CD4 Count % CD8 Cells Absolute CD19 Count T.pallidum Ab (FTA-ABS) HIV-1 RNA PCR copies/ml HIV-1 RNA (PCR) log Miscellaneous Test 10/11/18 05:40 WBC RBC Hgb Hct RDW Plt Count Seg Neuts % (Manual) Lymphocytes % (Manual) Monocytes % (Manual) Eosinophils % (Manual) Basophils % (Manual) Nucleated RBC % Seg Neutrophils # Man Abs Lymphs (Manual) Lymphocytes # (Manual) PT INR APTT Heparin Anti-Xa Level POC ABG pH POC ABG pCO2 POC ABG pO2 Sodium Potassium Chloride Carbon Dioxide BUN Creatinine Glucose POC Glucose Lactic Acid Calcium Phosphorus Magnesium Iron TIBC Ferritin AST ALT Total Creatine Kinase Total Protein Albumin Vitamin B12 Folate TSH Free T4 Urine WBC (Auto) Urine Creatinine 57.5 H Urine Chloride 35.1 L Urine Total Protein 44 H CSF VDRL Lymph Enumerat CD4/CD8 Absolute CD3 Count % CD4 Cells Absolute CD4 Count % CD8 Cells Absolute CD19 Count T.pallidum Ab (FTA-ABS) HIV-1 RNA PCR copies/ml HIV-1 RNA (PCR) log Miscellaneous Test Allied health notes reviewed: nursing
--- NOTE | 2018-10-11 18:58 | Progress Note ---
Assessment and Plan Assessment and plan: : Patient is 33 yo initially presented with diarrhea, found to have pneumonia, sepsis, HIV/AIDS(new diagnosis) with CD4 count of 4. He was started on abx for PJP. His mental status has worsened with confusion, lethargy. LP done . He was diagnosed with neurosyphilis. Started on Penicillin. Closest family is sister in [place], and dr. Baltazar spoke to her several times about diagnosis but did not tell her about HIV/AIDS because of patient confidentiality. The patient decompensated on 09/20/18 with acute hypoxemic respiratory failure and worsening toxic metabolic encephalopathy requiring transfer to ICU and intubation. He now remains on mechanical ventilation. The patient was also noted to develop SVT requiring amiodarone drip as well as heparin drip. Severe Sepsis. Etiology secondary to bacterial pneumonia +/- gastroenteritis with newly diagnosed with HIV. Fevers have re-emerged. Repeat blood cx per ID. ARF - Creatinine is trending up and nephrology is following Acute hypoxemic respiratory failure. Etiology mostly secondary to mental status issues. Pulm following. Disseminated CMV viremia: continue IV Ganciclovir 5 mg/kg q12 hrs, continue till CMV PCR is <200. LP done today Toxic metabolic encephalopathy. 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 Of note, MRI did not show ventriculitis. Neurology re-consultation. Repeat A. fib with RVR. Converted to NSR. cont Amiodarone and metoprolol. Neurosyphilis: CSF VDRL positive, off Ceftriaxone and back on IV Penicillin (will complete 21 days). Diarrhea. Resolved, etiology likely secondary to Giardia. Giardia antigen positive in stool. Completed several days of Flagyl. Oral candidiasis. Fluconazole HIV/AIDS. New Diagnosis. Started on HAART on 09/30, Tenofovir, Emtricitabine + Dolutegravir watch closely for IRIS continue atovaquone and azithromycin prophylaxis Neutropenia. 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 Also probably worse from ganciclovir. r/o disseminated MAC, thus far cultures negative. Hematology started him on granix Prognosis poor. Sister hold off Trach and PEG. I have a long discussion with his sister on the phone. she had a Discussion with multiple doctors and explain everything but she said nobody explain what is going on. I personally discussed with her on the phone for 30 minutes and 16 minutes this morning and despite that she wants sp ecific information about the prognosis, how long is going to be PEG and trach which are difficult to tell exactly but explained the prognosis in general. The high probability of a clinically significant, sudden or life threatening deterioration of the [neurological, respiratory and cardiac] system(s) required my full and direct attention, intervention and personal management. The aggregate critical care time was [31] minutes. This time is in addition to time spent performing reported procedures but includes the following: [x] Data Review and interpretation [x] Patient assessment and monitoring of vital signs [x] Documentation [x] Medication orders and management History Interval history: Patient was seen and evaluated this morning, patient had fever overnight, patient is intubated and on mechanical ventilation. Hospitalist Physical - Physical exam Narrative exam: Patient is intubated and on mechanical ventilation. The patient is obese. Vital signs as documented. Head exam is unremarkable. No scleral icterus . Neck is without jugular venous distension, thyromegaly, or carotid bruits. Lungs are clear to auscultation. Cardiac exam reveals regular rate and Rhythm. First and second heart sounds normal. No murmurs, rubs or gallops. Abdominal exam reveals normal bowel sounds, no masses, no organomegaly and no aortic enlargement. Extremities are nonedematous and both femoral and pedal pulses are normal. WASTE SPECIALIST: Open his eyes. - Constitutional Vitals: Temp Pulse Resp BP Pulse Ox 97.4 F L 82 22 128/71 100 10/11/18 16:00 10/11/18 18:00 10/11/18 18:00 10/11/18 18:00 10/11/18 18:00 General appearance: Present: other (orally intubated, minimal response--right side spontaneous movement) Results - Labs CBC & Chem 7: 10/11/18 05:20 10/11/18 05:20 Labs: Laboratory Last Values WBC 1.2 K/mm3 (4.5-11.0) L* 10/11/18 05:20 RBC 2.89 M/mm3 (3.65-5.03) L 10/11/18 05:20 Hgb 8.7 gm/dl (11.8-15.2) L 10/11/18 05:20 Hct 26.0 % (35.5-45.6) L 10/11/18 05:20 MCV 90 fl (84-94) 10/11/18 05:20 MCH 30 pg (28-32) 10/11/18 05:20 MCHC 33 % (32-34) 10/11/18 05:20 RDW 20.1 % (13.2-15.2) H 10/11/18 05:20 Plt Count 216 K/mm3 (140-440) 10/11/18 05:20 Wilkin % (Auto) Furnace Feeder 09/29/18 05:00 Eos % (Auto) Furnace Feeder 10/11/18 05:20 Baso % (Auto) Furnace Feeder 10/10/18 08:35 Add Manual Diff Complete 10/11/18 05:20 Total Counted 25 10/11/18 05:20 Seg Neutrophils % Furnace Feeder 10/10/18 08:35 Seg Neuts % (Manual) 48.0 % (40.0-70.0) 10/11/18 05:20 Band Neutrophils % 4.0 % 10/11/18 05:20 Lymphocytes % (Manual) 8.0 % (13.4-35.0) L 10/11/18 05:20 Reactive Lymphs % (Man) 0 % 10/11/18 05:20 Monocytes % (Manual) 12.0 % (0.0-7.3) H 10/11/18 05:20 Eosinophils % (Manual) 24.0 % (0.0-4.3) H 10/11/18 05:20 Basophils % (Manual) 4.0 % (0.0-1.8) H 10/11/18 05:20 Metamyelocytes % 0 % 10/11/18 05:20 Myelocytes % 0 % 10/11/18 05:20 Promyelocytes % 0 % 10/11/18 05:20 Blast Cells % 0 % 10/11/18 05:20 Nucleated RBC % Not Reportable 10/11/18 05:20 Seg Neutrophils # Man 0.6 K/mm3 (1.8-7.7) L 10/11/18 05:20 Band Neutrophils # 0.0 K/mm3 10/11/18 05:20 Abs Lymphs (Manual) 309 cells/uL (850-3900) L 09/13/18 12:29 Lymphocytes # (Manual) 0.1 K/mm3 (1.2-5.4) L 10/11/18 05:20 Abs React Lymphs (Man) 0.0 K/mm3 10/11/18 05:20 Monocytes # (Manual) 0.1 K/mm3 (0.0-0.8) 10/11/18 05:20 Eosinophils # (Manual) 0.3 K/mm3 (0.0-0.4) 10/11/18 05:20 Basophils # (Manual) 0.0 K/mm3 (0.0-0.1) 10/11/18 05:20 Metamyelocytes # 0.0 K/mm3 10/11/18 05:20 Myelocytes # 0.0 K/mm3 10/11/18 05:20 Promyelocytes # 0.0 K/mm3 10/11/18 05:20 Blast Cells # 0.0 K/mm3 10/11/18 05:20 WBC Morphology Not Reportable 10/11/18 05:20 Hypersegmented Neuts Not Reportable 10/11/18 05:20 Hyposegmented Neuts Not Reportable 10/11/18 05:20 Hypogranular Neuts Not Reportable 10/11/18 05:20 Smudge Cells Not Reportable 10/11/18 05:20 Toxic Granulation Not Reportable 10/11/18 05:20 Toxic Vacuolation Not Reportable 10/11/18 05:20 Dohle Bodies Not Reportable 10/11/18 05:20 Pelger-Huet Anomaly Not Reportable 10/11/18 05:20 Giovanna Rods Not Reportable 10/11/18 05:20 Platelet Estimate Consistent w auto 10/11/18 05:20 Clumped Platelets Not Reportable 10/11/18 05:20 Plt Clumps, EDTA Not Reportable 10/11/18 05:20 Large Platelets Not Reportable 10/11/18 05:20 Giant Platelets Not Reportable 10/11/18 05:20 Platelet Satelliting Not Reportable 10/11/18 05:20 Plt Morphology Comment Not Reportable 10/11/18 05:20 RBC Morphology Not Reportable 10/11/18 05:20 Dimorphic RBCs Not Reportable 10/11/18 05:20 Polychromasia Not Reportable 10/11/18 05:20 Hypochromasia 1+ 10/11/18 05:20 Poikilocytosis Not Reportable 10/11/18 05:20 Anisocytosis 1+ 10/11/18 05:20 Microcytosis Not Reportable 10/11/18 05:20 Macrocytosis Not Reportable 10/11/18 05:20 Spherocytes Not Reportable 10/11/18 05:20 Pappenheimer Bodies Not Reportable 10/11/18 05:20 Sickle Cells Not Reportable 10/11/18 05:20 Target Cells Not Reportable 10/11/18 05:20 Tear Drop Cells Not Reportable 10/11/18 05:20 Ovalocytes 1+ 10/11/18 05:20 Stomatocytes 1+ 09/29/18 05:00 Helmet Cells Not Reportable 10/11/18 05:20 [place] Bodies Not Reportable 10/11/18 05:20 [place] Rings Not Reportable 10/11/18 05:20 [place] Cells Not Reportable 10/11/18 05:20 Bite Cells Not Reportable 10/11/18 05:20 Crenated Cell Not Reportable 10/11/18 05:20 Elliptocytes Not Reportable 10/11/18 05:20 Acanthocytes (Spur) Not Reportable 10/11/18 05:20 Rouleaux Not Reportable 10/11/18 05:20 Hemoglobin C Crystals Not Reportable 10/11/18 05:20 Schistocytes Not Reportable 10/11/18 05:20 Malaria parasites Not Reportable 10/11/18 05:20 Kieran Bodies Not Reportable 10/11/18 05:20 Hem Pathologist Commnt No 10/11/18 05:20 PT 16.0 Sec. (12.2-14.9) H 10/10/18 08:09 INR 1.20 (0.87-1.13) H 10/10/18 08:09 APTT 40.9 Sec. (24.2-36.6) H 09/21/18 15:00 Heparin Anti-Xa Level 0.35 U.I./ml (0.3-0.7) 10/05/18 10:19 POC ABG pH 7.318 (7.35-7.45) L 10/11/18 16:41 POC ABG pCO2 37.5 (35-45) 10/11/18 16:41 POC ABG pO2 91 (80-105) 10/11/18 16:41 POC ABG HCO3 19.3 10/11/18 16:41 POC ABG Total CO2 20 10/11/18 16:41 POC ABG O2 Sat 96 10/11/18 16:41 POC ABG Base Excess -7 10/11/18 16:41 FiO2 25 % 10/11/18 16:41 Sodium 143 mmol/L (137-145) 10/11/18 05:20 Potassium 4.9 mmol/L (3.6-5.0) 10/11/18 05:20 Chloride 103.6 mmol/L (98-107) 10/11/18 05:20 Carbon Dioxide 20 mmol/L (22-30) L 10/11/18 05:20 Anion Gap 24 mmol/L 10/11/18 05:20 BUN 102 mg/dL (9-20) H 10/11/18 05:20 Creatinine 6.7 mg/dL (0.8-1.5) H 10/11/18 05:20 Estimated GFR 12 ml/min 10/11/18 05:20 BUN/Creatinine Ratio 15 % 10/11/18 05:20 Glucose 79 mg/dL (75-100) 10/11/18 05:20 POC Glucose 100 (70-105) 10/11/18 17:25 Lactic Acid 0.90 mmol/L (0.7-2.0) 09/11/18 20:17 Calcium 8.3 mg/dL (8.4-10.2) L 10/11/18 05:20 Phosphorus 3.10 mg/dL (2.5-4.5) D 09/27/18 04:11 Magnesium 1.40 mg/dL (1.7-2.3) L 10/03/18 13:23 Iron 35 ug/dL (49-181) L 10/06/18 09:40 TIBC 157 mcg/dL (250-450) L 10/06/18 09:40 Ferritin 1126.0 ng/mL (13.0-400.0) H 10/06/18 09:40 Total Bilirubin 0.30 mg/dL (0.1-1.2) 10/07/18 04:20 Direct Bilirubin < 0.2 mg/dL (0-0.2) 09/13/18 07:31 AST 30 units/L (5-40) 10/07/18 04:20 ALT 25 units/L (7-56) 10/07/18 04:20 Alkaline Phosphatase 57 units/L (35-129) 10/07/18 04:20 Ammonia 27.0 umol/L (25-60) 10/03/18 13:23 Total Creatine Kinase 113 units/L (55-170) 10/11/18 05:20 CK-MB (CK-2) 2.6 ng/mL (0.0-4.0) 10/11/18 05:20 CK-MB (CK-2) Rel Index 0.5 (0-4) 09/21/18 04:25 NT-Pro-B Natriuret Pep 145.9 pg/mL (0-450) 09/18/18 16:07 Total Protein 5.5 g/dL (6.3-8.2) L 10/07/18 04:20 Albumin 2.2 g/dL (3.9-5) L 10/07/18 04:20 Albumin/Globulin Ratio 0.7 % 10/07/18 04:20 Vitamin B12 934.5 pg/mL (211-911) H 09/16/18 11:41 Folate 6.71 ng/mL (7.3-26.0) L 10/06/18 09:40 TSH 5.190 mlU/mL (0.270-4.200) H 09/18/18 12:46 Free T4 0.75 ng/dL (0.76-1.46) L 09/18/18 12:46 Urine Color Yellow (Yellow) 10/11/18 05:40 Urine Turbidity Slightly-cloudy (Clear) 10/11/18 05:40 Urine pH 5.0 (5.0-7.0) 10/11/18 05:40 Ur Specific [place] 1.012 (1.003-1.030) 10/11/18 05:40 Urine Protein 30 mg/dl mg/dL (Negative) 10/11/18 05:40 Urine Glucose (UA) Neg mg/dL (Negative) 10/11/18 05:40 Urine Ketones Neg mg/dL (Negative) 10/11/18 05:40 Urine Blood Mod (Negative) 10/11/18 05:40 Urine Nitrite Neg (Negative) 10/11/18 05:40 Urine Bilirubin Neg (Negative) 10/11/18 05:40 Urine Urobilinogen < 2.0 mg/dL (<2.0) 10/11/18 05:40 Ur Leukocyte Esterase Neg (Negative) 10/11/18 05:40 Urine WBC (Auto) 8.0 /HPF (0.0-6.0) H 10/11/18 05:40 Urine RBC (Auto) 45.0 /HPF (0.0-6.0) 10/11/18 05:40 U Epithel Cells (Auto) 2.0 /HPF (0-13.0) 10/11/18 05:40 Urine Bacteria (Auto) 1+ /HPF (Negative) 10/11/18 05:40 Urine Mucus Few /HPF 10/11/18 05:40 Urine Creatinine 57.5 mg/dL (0.1-20.0) H 10/11/18 05:40 Protein/Creatinin Ratio 0.77 10/11/18 05:40 Urine Sodium 70 mmol/L 10/11/18 05:40 Urine Chloride 35.1 mmolL (110-250) L 10/11/18 05:40 Urine Total Protein 44 mg/dL (5-11.8) H 10/11/18 05:40 CSF Appearance Bloody 10/10/18 Unknown CSF Color Red 10/10/18 Unknown CSF WBC 10 /mm3 (1-10) 10/10/18 Unknown CSF RBC 04639 /mm3 (0-0) 10/10/18 Unknown CSF Seg Neutrophils 14.0 % (0-6) 10/10/18 Unknown CSF Lymphocytes % 44.0 % (40-80) 10/10/18 Unknown CSF Reactive Lymphs 0 % 10/10/18 Unknown CSF Monocytes % 38.0 % (15-45) 10/10/18 Unknown CSF Eosinophils % 4.0 % 10/10/18 Unknown CSF Basophils 0 % 10/10/18 Unknown CSF Pathologist Review C 10/10/18 Unknown CSF Glucose 47 mg/dL 10/10/18 Unknown CSF Total Protein 84 mg/dL 10/10/18 Unknown CSF VDRL Reactive 1:4 (Nonreactive) H 09/19/18 15:00 Vancomycin Trough 14.3 ug/mL (5.0-20.0) 09/25/18 14:45 Urine Opiates Screen Presumptive negative 09/17/18 15:52 Urine Methadone Screen Presumptive negative 09/17/18 15:52 Ur Barbiturates Screen Presumptive negative 09/17/18 15:52 Ur Phencyclidine Scrn Presumptive negative 09/17/18 15:52 Ur Amphetamines Screen Presumptive negative 09/17/18 15:52 U Benzodiazepines Scrn Presumptive negative 09/17/18 15:52 Urine Cocaine Screen Presumptive negative 09/17/18 15:52 U Marijuana (THC) Screen Presumptive negative 09/17/18 15:52 Drugs of Abuse Note Disclamer 09/17/18 15:52 Lymph Enumerat CD4/CD8 0.01 (0.86-5.00) L 09/13/18 12:29 % CD3 Cells 71 % (57-85) 09/13/18 12:29 Absolute CD3 Count 220 cells/uL (840-3060) L 09/13/18 12:29 % CD4 Cells 1 % (30-61) L 09/13/18 12:29 Absolute CD4 Count 4 cells/uL (490-1740) L 09/13/18 12:29 % CD8 Cells 70 % (12-42) H 09/13/18 12:29 Absolute CD8 Count 216 cells/uL (180-1170) 09/13/18 12:29 % CD19 Cells 17 % (6-29) 09/13/18 12:29 Absolute CD19 Count 54 cells/uL (110-660) L 09/13/18 12:29 RPR Titer 1:16 09/13/18 12:29 RPR Reactive (Nonreactive) 09/13/18 12:29 T.pallidum Ab (FTA-ABS) Reactive (Nonreactive) H 09/14/18 16:34 C. difficile Toxin A&B Negative (Negative) 09/12/18 05:30 CMV DNA PCR log gyroscopic instrument tester/mL See scanned results 10/03/18 06:12 Hepatitis A IgM Ab Non-reactive (NonReactive) 09/13/18 12:29 Hep Bs Antigen Non-reactive (Negative) 09/13/18 12:29 Hep B Core IgM Ab Non-reactive (NonReactive) 09/13/18 12:29 Hepatitis C Antibody Non-reactive (NonReactive) 09/13/18 12:29 HIV-1 Antibody See scanned result 09/11/18 19:14 HIV-1 RNA PCR copies/ml 97781 Copies/mL H 09/13/18 12:29 HIV-1 RNA (PCR) log 4.71 Log cps/mL H 09/13/18 12:29 HIV-2 Ab (Immunoblot) See scanned result 09/11/18 19:14 HIV 1&2 Antibody Rapid Reactive (Non React) 09/11/18 19:14 HIV P24 Antigen Non react (Non React) 09/11/18 19:14 Influenza A (Rapid) Negative (Negative) 09/13/18 16:05 Influenza A (RT-PCR) Negative (Negative) 09/13/18 16:05 Influenza B (Rapid) Negative (Negative) 09/13/18 16:05 Influenza B (RT-PCR) Negative (Negative) 09/13/18 16:05 Toxoplasma IgG Ab <7.20 IU/mL (<7.20) 09/16/18 12:09 Miscellaneous Test see below 09/21/18 03:55 Nutrition/Malnutrition Assess - Dietary Evaluation Nutrition/Malnutrition Findings: Nutrition Notes Start: 09/12/18 17:45 Freq: Status: Active Protocol: Document 10/07/18 11:44 CP (Rec: 10/07/18 11:51 CP [id number]) Co-Sign 10/07/18 11:44 LP Nutrition Notes Initial or Follow up Reassessment Current Diagnosis Acute Kidney Injury Sepsis Respiratory Failure Other Pertinent Diagnosis HIV, bilat pneu, gastroenteritis, encephalopathy Current Diet TF- Vital High Protein at 70ml /hr Labs/Tests Cr: 0.7 PRO: 5.5 Pertinent Medications Reviewed Height 6 ft Weight 118 kg [place] Body Weight (kg) 80.90 BMI 35.2 Subjective/Other Information Observed TF running at goal ( 70 mL). Per nurse, water flush of 150 mL was administered 08 :00 today. Percent of energy/protein needs met: 93%/91% Burn Absent Trauma Absent #2 Nutrition Diagnosis Inadequate oral intake Diagnosis Progress(for reassessment Continues documentation) #1 Nutrition Diagnosis Malnutrition Diagnosis Progress(for reassessment Continues documentation) Is patient on ventilator? Yes Is Patient Ambulatory and/or Out of Bed No REE-([facility]-confined to bed) 2597.352 Kcal/Kg value to use for calculation 15 Approximate Energy Requirements Using 1770 kcal/Kg Additional Notes Pro needs 2g/kg IBW: 162g/day Fluid needs 1ml/kcal Nutrition Intervention Change Diet Order: Continue TF Nutrition Support: Vital HP at 70ml/hr Kcal 1,680 Protein (gm) 147 Fluid (mL) 1,404 Goal #1 Continue to meet at least 80% of PRO and kcal needs with TF. Follow-Up By: 10/14/18 Additional Comments F/U: Stable TF/TF tolerance
[2018-10-12] MEDS: PROVENTIL IH SCH ×4 (03:01→19:45)
[2018-10-12 03:56] LABS: Hematocrit 25.1 % (35.5-45.6); Hemoglobin 8.3 gm/dl (11.8-15.2); Mean Corpuscular HGB Conc 33 % (32-34); Mean Corpuscular Volume 90 fl (84-94); Platelet Count 190 K/mm3 (140-440); Red Blood Count 2.78 M/mm3 (3.65-5.03); Red Cell Distribution Width 19.9 % (13.2-15.2)
[2018-10-12 04:14] LABS: Calcium 7.9 mg/dL (8.4-10.2)
[2018-10-12 04:37] LABS: Basophils % (Manual) 0 % (0.0-1.8); Monocytes % (Manual) 0 % (0.0-7.3); Total Cells Counted 10
[2018-10-12 04:38] LABS: Anisocytosis 2+; Helmet Cells Few; Large Platelets Few; Ovalocytes 2+; Target Cells Few; Tear Drop Cells Few
[2018-10-12] MEDS: SYNTHROID PO SCH (05:47)
[2018-10-12] MEDS: ROBINUL PO SCH ×4 (05:47→17:16)
[2018-10-12] MEDS: HEPARIN SUB-Q SCH ×3 (05:47→21:16)
--- NOTE | 2018-10-12 07:29 | Hem/Onc Progress Note ---
Assessment and Plan 1. Leukopenia. ANC is 0.5. Neutropenic precaution is practical. 2. Anemia. We will investigate. 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 HAART has been started. At this time, there is no fever. 3. Human immunodeficiency virus, on HAART. 4. 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 5. Intubated. 6. On antibiotics for pneumonia. 7. History of ____ that is improved. 8. Looks at you, but does not communicate. 9. History of oral candidiasis. 10. Mention of giardiasis. 11. Encephalopathy. 12. RVR with atrial fibrillation. I will follow the patient during inpatient stay. At this time, his cytopenia is likely secondary to the HIV or the CMV. I will discuss with ID team to see if G-CSF support is an option. 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 officer high - nephrology 10/12 - trach - peg not done - as family deciding the GCSF - did not change the WBC - Patient Problems (1) Neutropenia Current Visit: Yes Status: Acute Subjective Date of service: 10/12/18 Principal diagnosis: low wbc Interval history: pt non verbal Objective - Exam Narrative Exam: on vent - non communicative - Constitutional Vitals: Last Vital Signs Temp 98.5 F 10/12/18 04:00 Pulse 88 10/12/18 06:09 Resp 24 10/12/18 06:09 BP 128/71 10/12/18 06:09 Pulse Ox 98 10/12/18 06:09 General appearance: no acute distress Performance status: 4-completely disabled - EENT Lymph node exam: negative cervical - Respiratory Respiratory effort: Positive: other (on vent) Respiratory: bilateral: diminished - Cardiovascular Heart Sounds: Present: S1 & S2 Extremity abnormal: edema - Gastrointestinal General gastrointestinal: Present: soft, non-tender Rectal Exam: deferred - Genitourinary Male genitourinary: Present: deferred - Integumentary Integumentary: warm - Musculoskeletal Musculoskeletal: other (not moving ) - Neurologic Neurologic: other (on vent - non communicative ) - Labs Lab Results: Laboratory Results - last 24 hr 10/11/18 10/11/18 10/11/18 05:20 05:40 12:28 WBC RBC Hgb Hct MCV MCH MCHC RDW Plt Count Eos % (Auto) Baso % (Auto) Add Manual Diff Total Counted Seg Neuts % (Manual) Band Neutrophils % Lymphocytes % (Manual) Reactive Lymphs % (Man) Monocytes % (Manual) Eosinophils % (Manual) Basophils % (Manual) Metamyelocytes % Myelocytes % Promyelocytes % Blast Cells % Nucleated RBC % Seg Neutrophils # Man Band Neutrophils # Lymphocytes # (Manual) Abs React Lymphs (Man) Monocytes # (Manual) Eosinophils # (Manual) Basophils # (Manual) Metamyelocytes # Myelocytes # Promyelocytes # Blast Cells # WBC Morphology Hypersegmented Neuts Hyposegmented Neuts Hypogranular Neuts Smudge Cells Toxic Granulation Toxic Vacuolation Dohle Bodies Pelger-Huet Anomaly Giovanna Rods Platelet Estimate Clumped Platelets Plt Clumps, EDTA Large Platelets Giant Platelets Platelet Satelliting Plt Morphology Comment RBC Morphology Dimorphic RBCs Polychromasia Hypochromasia Poikilocytosis Anisocytosis Microcytosis Macrocytosis Spherocytes Pappenheimer Bodies Sickle Cells Target Cells Tear Drop Cells Ovalocytes Helmet Cells [place] Bodies [place] Rings Dioni Cells Bite Cells Crenated Cell Elliptocytes Acanthocytes (Spur) Rouleaux Hemoglobin C Crystals Schistocytes Malaria parasites Kieran Bodies Hem Pathologist Commnt POC ABG pH POC ABG pCO2 POC ABG pO2 POC ABG HCO3 POC ABG Total CO2 POC ABG O2 Sat POC ABG Base Excess FiO2 Sodium Potassium Chloride Carbon Dioxide Anion Gap BUN Creatinine Estimated GFR BUN/Creatinine Ratio Glucose POC Glucose 96 Calcium Total Creatine Kinase 113 CK-MB (CK-2) 2.6 Urine Creatinine 57.5 H Protein/Creatinin Ratio 0.77 Urine Sodium 70 Urine Chloride 35.1 L Urine Total Protein 44 H Random Vancomycin 10/11/18 10/11/18 10/11/18 16:23 16:41 17:25 WBC RBC Hgb Hct MCV MCH MCHC RDW Plt Count Eos % (Auto) Baso % (Auto) Add Manual Diff Total Counted Seg Neuts % (Manual) Band Neutrophils % Lymphocytes % (Manual) Reactive Lymphs % (Man) Monocytes % (Manual) Eosinophils % (Manual) Basophils % (Manual) Metamyelocytes % Myelocytes % Promyelocytes % Blast Cells % Nucleated RBC % Seg Neutrophils # Man Band Neutrophils # Lymphocytes # (Manual) Abs React Lymphs (Man) Monocytes # (Manual) Eosinophils # (Manual) Basophils # (Manual) Metamyelocytes # Myelocytes # Promyelocytes # Blast Cells # WBC Morphology Hypersegmented Neuts Hyposegmented Neuts Hypogranular Neuts Smudge Cells Toxic Granulation Toxic Vacuolation Dohle Bodies Pelger-Huet Anomaly Giovanna Rods Platelet Estimate Clumped Platelets Plt Clumps, EDTA Large Platelets Giant Platelets Platelet Satelliting Plt Morphology Comment RBC Morphology Dimorphic RBCs Polychromasia Hypochromasia Poikilocytosis Anisocytosis Microcytosis Macrocytosis Spherocytes Pappenheimer Bodies Sickle Cells Target Cells Tear Drop Cells Ovalocytes Helmet Cells [place] Bodies [place] Rings [place]ar Cells Bite Cells Crenated Cell Elliptocytes Acanthocytes (Spur) Rouleaux Hemoglobin C Crystals Schistocytes Malaria parasites Kieran Bodies Hem Pathologist Commnt POC ABG pH 7.310 L 7.318 L POC ABG pCO2 39.3 37.5 POC ABG pO2 56 L 91 POC ABG HCO3 19.8 19.3 POC ABG Total CO2 21 20 POC ABG O2 Sat 86 96 POC ABG Base Excess -6 -7 FiO2 25 25 Sodium Potassium Chloride Carbon Dioxide Anion Gap BUN Creatinine Estimated GFR BUN/Creatinine Ratio Glucose POC Glucose 100 Calcium Total Creatine Kinase CK-MB (CK-2) Urine Creatinine Protein/Creatinin Ratio Urine Sodium Urine Chloride Urine Total Protein Random Vancomycin 10/11/18 10/12/18 10/12/18 23:36 03:30 03:30 WBC 0.9 L* RBC 2.78 L Hgb 8.3 L Hct 25.1 L MCV 90 MCH 30 MCHC 33 RDW 19.9 H Plt Count 190 Eos % (Auto) Carpet Installation Specialist Baso % (Auto) Carpet Installation Specialist Add Manual Diff Complete Total Counted 10 Seg Neuts % (Manual) 50.0 Band Neutrophils % 0 Lymphocytes % (Manual) 30.0 Reactive Lymphs % (Man) 0 Monocytes % (Manual) 0 Eosinophils % (Manual) 20.0 H Basophils % (Manual) 0 Metamyelocytes % 0 Myelocytes % 0 Promyelocytes % 0 Blast Cells % 0 Nucleated RBC % Not Reportable Seg Neutrophils # Man 0.5 L Band Neutrophils # 0.0 Lymphocytes # (Manual) 0.3 L Abs React Lymphs (Man) 0.0 Monocytes # (Manual) 0.0 Eosinophils # (Manual) 0.2 Basophils # (Manual) 0.0 Metamyelocytes # 0.0 Myelocytes # 0.0 Promyelocytes # 0.0 Blast Cells # 0.0 WBC Morphology Not Reportable Hypersegmented Neuts Not Reportable Hyposegmented Neuts Not Reportable Hypogranular Neuts Not Reportable Smudge Cells Not Reportable Toxic Granulation Not Reportable Toxic Vacuolation Not Reportable Dohle Bodies Not Reportable Pelger-Huet Anomaly Not Reportable Giovanna Rods Not Reportable Platelet Estimate Appears normal Clumped Platelets Not Reportable Plt Clumps, EDTA Not Reportable Large Platelets Few Giant Platelets Not Reportable Platelet Satelliting Not Reportable Plt Morphology Comment Not Reportable RBC Morphology Not Reportable Dimorphic RBCs Not Reportable Polychromasia Not Reportable Hypochromasia Not Reportable Poikilocytosis Not Reportable Anisocytosis 2+ Microcytosis 1+ Macrocytosis Not Reportable Spherocytes Not Reportable Pappenheimer Bodies Not Reportable Sickle Cells Not Reportable Target Cells Few Tear Drop Cells Few Ovalocytes 2+ Helmet Cells Few [place] Bodies Not Reportable [place] Rings Not Reportable Dioni Cells Not Reportable Bite Cells Not Reportable Crenated Cell Not Reportable Elliptocytes 1+ Acanthocytes (Spur) Not Reportable Rouleaux Not Reportable Hemoglobin C Crystals Not Reportable Schistocytes Not Reportable Malaria parasites Not Reportable Kieran Bodies Not Reportable Hem Pathologist Commnt No POC ABG pH POC ABG pCO2 POC ABG pO2 POC ABG HCO3 POC ABG Total CO2 POC ABG O2 Sat POC ABG Base Excess FiO2 Sodium Potassium Chloride Carbon Dioxide Anion Gap BUN Creatinine Estimated GFR BUN/Creatinine Ratio Glucose POC Glucose 99 Calcium Total Creatine Kinase CK-MB (CK-2) Urine Creatinine Protein/Creatinin Ratio Urine Sodium Urine Chloride Urine Total Protein Random Vancomycin 10.7 10/12/18 10/12/18 03:30 05:39 WBC RBC Hgb Hct MCV MCH MCHC RDW Plt Count Eos % (Auto) Baso % (Auto) Add Manual Diff Total Counted Seg Neuts % (Manual) Band Neutrophils % Lymphocytes % (Manual) Reactive Lymphs % (Man) Monocytes % (Manual) Eosinophils % (Manual) Basophils % (Manual) Metamyelocytes % Myelocytes % Promyelocytes % Blast Cells % Nucleated RBC % Seg Neutrophils # Man Band Neutrophils # Lymphocytes # (Manual) Abs React Lymphs (Man) Monocytes # (Manual) Eosinophils # (Manual) Basophils # (Manual) Metamyelocytes # Myelocytes # Promyelocytes # Blast Cells # WBC Morphology Hypersegmented Neuts Hyposegmented Neuts Hypogranular Neuts Smudge Cells Toxic Granulation Toxic Vacuolation Dohle Bodies Pelger-Huet Anomaly Giovanna Rods Platelet Estimate Clumped Platelets Plt Clumps, EDTA Large Platelets Giant Platelets Platelet Satelliting Plt Morphology Comment RBC Morphology Dimorphic RBCs Polychromasia Hypochromasia Poikilocytosis Anisocytosis Microcytosis Macrocytosis Spherocytes Pappenheimer Bodies Sickle Cells Target Cells Tear Drop Cells Ovalocytes Helmet Cells [place] Bodies [place] Rings Maljamar Cells Bite Cells Crenated Cell Elliptocytes Acanthocytes (Spur) Rouleaux Hemoglobin C Crystals Schistocytes Malaria parasites Kieran Bodies Hem Pathologist Commnt POC ABG pH POC ABG pCO2 POC ABG pO2 POC ABG HCO3 POC ABG Total CO2 POC ABG O2 Sat POC ABG Base Excess FiO2 Sodium 141 Potassium 4.3 Chloride 102.9 Carbon Dioxide 18 L Anion Gap 24 BUN 111 H Creatinine 7.3 H Estimated GFR 11 BUN/Creatinine Ratio 15 Glucose 93 POC Glucose 89 Calcium 7.9 L Total Creatine Kinase CK-MB (CK-2) Urine Creatinine Protein/Creatinin Ratio Urine Sodium Urine Chloride Urine Total Protein Random Vancomycin Medications & Allergies - Medications Allergies/Adverse Reactions: Allergies No Known Allergies Allergy (Unverified 09/11/18 17:50) Home Medications: Home Medications Medication Instructions Recorded Confirmed Last Taken Type No Known Home Medications [No 10/02/18 10/02/18 Unknown History Reported Home Medications] Active Medications: Generic Name Dose Route Start Last Admin Trade Name Freq PRN Reason Stop Dose Admin Acetaminophen 650 mg 09/11/18 19:30 10/09/18 16:32 Tylenol PO 650 mg Q4H PRN Administration Pain MILD(1-3)/Fever >100.5/RIVERA Acetaminophen 650 mg 09/21/18 07:39 10/07/18 21:15 Tylenol [place] 650 mg Q4H PRN Administration Fever >101 Albuterol 2.5 mg 09/11/18 19:30 09/16/18 06:09 Proventil IH 2.5 mg Q4HRT PRN Administration Shortness Of Breath Albuterol 2.5 mg 09/20/18 20:00 10/12/18 03:01 Proventil IH 2.5 mg Q6HRT GIA Administration Amiodarone HCl 200 mg 09/27/18 15:00 10/11/18 21:30 Cordarone PO 200 mg BID GIA Administration Lipase/Protease/Amylase 1 each 09/30/18 12:01 Pancreaze 10,500 Unit FEEDTUBE PRN PRN For Clogged Feeding Tube Atovaquone 750 mg 09/21/18 10:00 10/11/18 21:30 Mepron PO 750 mg BID GIA Administration Azithromycin 1,200 mg 09/25/18 10:00 10/09/18 10:44 Zithromax PO 1,200 mg Walters GIA Administration Emtricitabine 200 mg 10/13/18 10:00 Emtriva PO Q96H GIA Famotidine 20 mg 10/10/18 10:00 10/11/18 09:11 Pepcid PO 20 mg DAILY GIA Administration Fluconazole 200 mg 10/05/18 12:00 10/11/18 09:12 Diflucan PO 200 mg QDAY GIA Administration Folic Acid 1 mg 10/07/18 10:00 10/11/18 10:13 Folvite PO 1 mg QDAY GIA Administration Glycopyrrolate 2 mg 10/07/18 18:00 10/12/18 05:47 Robinul PO 2 mg Q6HR GIA Administration Heparin Sodium (Porcine) 5,000 unit 10/05/18 14:00 10/12/18 05:47 Heparin SUB-Q 5,000 unit Q8HR GIA Administration Hydrophilic Ointment 1 applic 09/21/18 01:46 09/22/18 03:46 Vaseline Lip Therapy TP 1 applic Q2HR PRN Administration Dry Lips Levetiracetam 750 mg/ Sodium 107.5 mls @ 400 mls/hr 10/09/18 20:00 10/11/18 20:09 Chloride IV 400 mls/hr Q12H GIA Administration Cefepime HCl 2 gm in 100 mls @ 200 mls/hr 10/10/18 11:30 10/11/18 09:11 Maxipime/Ns 2 Gm/100 Ml IV 200 mls/hr Q24HR GIA Administration Protocol Sodium Chloride 1,000 mls @ 125 mls/hr 10/10/18 16:00 10/11/18 23:59 Nacl 0.9% 1000 Ml IV 125 mls/hr DIRECT GIA Administration Ganciclovir Sodium 150 mg/ 250 mls @ 100 mls/hr 10/12/18 10:00 Sodium Chloride IV MoWeFr GIA Vancomycin HCl 1,250 mg/ 275 mls @ 166.667 mls/hr 10/12/18 10:00 Sodium Chloride IV 10/12/18 11:38 ONCE ONE Levothyroxine Sodium 25 mcg 09/19/18 06:00 10/12/18 05:47 Synthroid PO 25 mcg DAILY@0600 GIA Administration Metoprolol Tartrate 12.5 mg 10/10/18 13:00 10/11/18 21:29 Lopressor PO 12.5 mg BID [facility] Administration Multi-Ingred Cream/Lotion/Oil/Oint 1 applic 09/21/18 01:46 Artificial Tears Ophth Oint OU Q4HR PRN Dry Eye(s) Ondansetron HCl 4 mg 09/11/18 19:30 Zofran IV Q8H PRN Nausea And Vomiting Scopolamine 1 each 09/18/18 18:00 10/09/18 19:08 Transderm-Scop TD 1 each Q3D GIA Administration Simple Syrup 15 ml 09/30/18 12:01 10/07/18 06:18 Simple Syrup FEEDTUBE 15 ml PRN PRN Administration Hypoglycemia Simple Syrup 30 ml 09/30/18 12:01 Simple Syrup FEEDTUBE PRN PRN Hypoglycemia Sodium Bicarbonate 325 mg 09/30/18 12:01 Sodium Bicarbonate FEEDTUBE PRN PRN For Clogged Feeding Tube Sodium Chloride 10 ml 09/11/18 22:00 10/11/18 21:30 Sodium Chloride Flush Syringe 10 Ml IV 10 ml BID GIA Administration Sodium Chloride 10 ml 09/11/18 19:30 Sodium Chloride Flush Syringe 10 Ml IV PRN PRN LINE FLUSH Tenofovir Disoproxil Fumarate 300 mg 10/13/18 10:00 Viread PO Q96H [facility]
[2018-10-12] MEDS: NACL 0.9% 1000 ML 1,000 ML IV SCH ×2 (08:00→17:16)
--- NOTE | 2018-10-12 08:34 | XRay Report ---
AP ABDOMEN: HISTORY: Check placement of OG-tube. The OG tube is coiled in the fundus of the stomach. The abdominal gas pattern is unremarkable. No masses or organomegaly is identified and there is no gross evidence of free air or fluid. No significant soft tissue calcifications are noted. IMPRESSION: Unremarkable abdomen.
[2018-10-12] MEDS: KEPPRA 750 MG in NACL 0.9% 100 ML IV SCH (08:40)
--- NOTE | 2018-10-12 09:25 | Progress Note ---
Assessment and Plan - Patient Problems (1) Acute kidney failure with tubular necrosis Current Visit: Yes Status: Acute Plan to address problem: Worsening renal function noted at this time with persistent fevers over the past 48 hours which can be a risk factor for MAL/pre-renal injury. Increased IVF hydration with NS to 125 cc/hr. concern for worsening acute tubular necrosis. Please ensure that all antibiotics are dosed appropriately for renal function. Other concern is that the change in renal function may be a consequence of extensive exposure to antibiotics (karey penicillin) as an inpatient and possible manifestations of AIN. Please ensure that all antibiotics are dosed appropriately for decreased renal clearance. There are no acute indications for renal replacement therapy at present. Continue current supportive care measures. We'll get stat renal ultrasound today. Given his progressively decreased urine output and concern for HTN, will try to increase urine output with dose of Lasix. Based on evidence of microscopic hematuria and proteinuria will also get stat complement levels and ANCA vasculitis studies. Pending results may also consider starting patient on IV Solu-Medrol secondary to progressively worsening renal function. I discussed with infectious disease in regards to the possibility of steroid initiation. (2) Hyperkalemia Current Visit: Yes Status: Resolved Plan to address problem: In the setting of worsening renal function/MAL. Improved with IV fluid hydration. (3) Acute respiratory failure with hypoxia Current Visit: Yes Status: Acute Plan to address problem: Remains intubated. 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 Will continue to monitor. He is awake this morning and seems to be less lethargic than he has been the last day we'll continue to closely monitor progression of mental status. (5) Pancytopenia Current Visit: Yes Status: Acute Plan to address problem: In the setting of CMV viremia, HIV/AIDS. Will defer to primary team. (6) HIV (human immunodeficiency virus infection) Current Visit: Yes Status: Chronic Plan to address problem: Management per ID recommendations. (7) Hypernatremia Current Visit: Yes Status: Acute Plan to address problem: Hypernatremia has resolved at this time. Subjective Date of service: 10/12/18 Principal diagnosis: low wbc Interval history: No acute changes overnight. He seems a bit more awake is morning and he is moving his right arm spontaneously. Not following my commands on examination. Trach and PEG procedures are on hold at this time. Renal function noted creatinine is slightly worse today. Urine output noted and has been steadily declining over the last 48 hours. He has been on IV fluids at 125 mL an hour. Urine analysis noted for hematuria and proteinuria. Will obtain stat complement levels as well as ANCA vasculitis studies. He has no acute electrolyte abnormalities that states the initiation of hemodialysis at this time. Volume status is stable and his respiratory status is stable on the ventilator. Chest x-ray does not show evidence of ac janeth pulmonary edema. We will also obtain stat renal ultrasound at this time. Objective - Vital Signs Vital signs: Vital Signs - 12hr 10/11/18 10/11/18 10/11/18 21:29 22:00 23:00 Temperature Pulse Rate 83 85 79 Pulse Rate [ Throughout] Respiratory 22 14 Rate Respiratory Rate [ Throughout] Blood Pressure 118/70 132/78 123/71 O2 Sat by Pulse 100 100 Oximetry 10/11/18 10/11/18 10/11/18 23:41 23:46 23:47 Temperature 97.5 F L Pulse Rate 81 80 Pulse Rate [ Throughout] Respiratory 15 3 L Rate Respiratory Rate [ Throughout] Blood Pressure 132/78 123/71 O2 Sat by Pulse 100 100 Oximetry 10/12/18 10/12/18 10/12/18 00:00 01:00 02:00 Temperature Pulse Rate 83 83 86 Pulse Rate [ Throughout] Respiratory 14 17 12 Rate Respiratory Rate [ Throughout] Blood Pressure 136/77 118/70 117/78 O2 Sat by Pulse 99 100 100 Oximetry 10/12/18 10/12/18 10/12/18 02:15 03:00 03:05 Temperature Pulse Rate 86 85 Pulse Rate [ 79 Throughout] Respiratory 16 8 L Rate Respiratory 18 Rate [ Throughout] Blood Pressure 127/82 127/82 O2 Sat by Pulse 100 100 Oximetry 10/12/18 10/12/18 10/12/18 04:00 05:00 06:00 Temperature 98.5 F Pulse Rate 85 89 87 Pulse Rate [ Throughout] Respiratory 14 15 23 Rate Respiratory Rate [ Throughout] Blood Pressure 128/68 128/77 128/71 O2 Sat by Pulse 100 100 Oximetry 10/12/18 06:09 Temperature Pulse Rate 88 Pulse Rate [ Throughout] Respiratory 24 Rate Respiratory Rate [ Throughout] Blood Pressure 128/71 O2 Sat by Pulse 98 Oximetry - General Appearance General appearance: chronically ill, intubated EENT: ATNC, PERRL Neck: no JVD Respiratory: Present: Ronchi Cardiology: regular, S1S2 Gastrointestinal: normal, normoactive bowel sounds Integumentary: warm and dry Neurologic: other (patient is awake at this time he does visually track to stimuli, he is not following commands for me at this time.) Musculoskeletal: other (mild nonpitting edema in lower extremities.) - Lab 10/12/18 03:30 10/12/18 03:30 Most recent lab results Calcium 7.9 mg/dL (8.4-10.2) L 10/12/18 03:30 Phosphorus 3.10 mg/dL (2.5-4.5) D 09/27/18 04:11 Magnesium 1.40 mg/dL (1.7-2.3) L 10/03/18 13:23 Urine Creatinine 57.5 mg/dL (0.1-20.0) H 10/11/18 05:40 Urine Sodium 70 mmol/L 10/11/18 05:40 Urine Total Protein 44 mg/dL (5-11.8) H 10/11/18 05:40 Medications & Allergies - Medications Allergies/Adverse Reactions: Allergies No Known Allergies Allergy (Unverified 09/11/18 17:50) Home Medications: Home Medications Medication Instructions Recorded Confirmed Last Taken Type No Known Home Medications [No 10/02/18 10/02/18 Unknown History Reported Home Medications] Active Medications: Generic Name Dose Route Start Last Admin Trade Name Freq PRN Reason Stop Dose Admin Acetaminophen 650 mg 09/11/18 19:30 10/09/18 16:32 Tylenol PO 650 mg Q4H PRN Administration Pain MILD(1-3)/Fever >100.5/RIVERA Acetaminophen 650 mg 09/21/18 07:39 10/07/18 21:15 Tylenol [place] 650 mg Q4H PRN Administration Fever >101 Albuterol 2.5 mg 09/11/18 19:30 09/16/18 06:09 Proventil IH 2.5 mg Q4HRT PRN Administration Shortness Of Breath Albuterol 2.5 mg 09/20/18 20:00 10/12/18 09:15 Proventil IH 2.5 mg Q6HRT GIA Administration Amiodarone HCl 200 mg 09/27/18 15:00 10/11/18 21:30 Cordarone PO 200 mg BID GIA Administration Lipase/Protease/Amylase 1 each 09/30/18 12:01 Abril Gibbs 10,500 Unit FEEDTUBE PRN PRN For Clogged Feeding Tube Atovaquone 750 mg 09/21/18 10:00 10/11/18 21:30 Mepron PO 750 mg BID GIA Administration Azithromycin 1,200 mg 09/25/18 10:00 10/09/18 10:44 Zithromax PO 1,200 mg Walters GIA Administration Emtricitabine 200 mg 10/13/18 10:00 Emtriva PO Q96H GIA Famotidine 20 mg 10/10/18 10:00 10/11/18 09:11 Pepcid PO 20 mg DAILY GIA Administration Fluconazole 200 mg 10/05/18 12:00 10/11/18 09:12 Diflucan PO 200 mg QDAY GIA Administration Folic Acid 1 mg 10/07/18 10:00 10/11/18 10:13 Folvite PO 1 mg QDAY GIA Administration Glycopyrrolate 2 mg 10/07/18 18:00 10/12/18 05:47 Robinul PO 2 mg Q6HR GIA Administration Heparin Sodium (Porcine) 5,000 unit 10/05/18 14:00 10/12/18 05:47 Heparin SUB-Q 5,000 unit Q8HR GIA Administration Hydrophilic Ointment 1 applic 09/21/18 01:46 09/22/18 03:46 Vaseline Lip Therapy TP 1 applic Q2HR PRN Administration Dry Lips Levetiracetam 750 mg/ Sodium 107.5 mls @ 400 mls/hr 10/09/18 20:00 10/11/18 20:09 Chloride IV 10/12/18 12:00 400 mls/hr Q12H GIA Administration Cefepime HCl 2 gm in 100 mls @ 200 mls/hr 10/10/18 11:30 10/11/18 09:11 Maxipime/Ns 2 Gm/100 Ml IV 200 mls/hr Q24HR GIA Administration Protocol Sodium Chloride 1,000 mls @ 125 mls/hr 10/10/18 16:00 10/11/18 23:59 Nacl 0.9% 1000 Ml IV 125 mls/hr DIRECT GIA Administration Ganciclovir Sodium 150 mg/ 250 mls @ 100 mls/hr 10/12/18 10:00 Sodium Chloride IV MoWeFr GIA Vancomycin HCl 1,250 mg/ 275 mls @ 166.667 mls/hr 10/12/18 10:00 Sodium Chloride IV 10/12/18 11:38 ONCE ONE Levetiracetam 750 mg 10/12/18 22:00 Keppra PO BID [facility] Levothyroxine Sodium 25 mcg 09/19/18 06:00 10/12/18 05:47 Synthroid PO 25 mcg DAILY@0600 [facility] Administration Metoprolol Tartrate 12.5 mg 10/10/18 13:00 10/11/18 21:29 Lopressor PO 12.5 mg BID [facility] Administration Multi-Ingred Cream/Lotion/Oil/Oint 1 applic 09/21/18 01:46 Artificial Tears Ophth Oint OU Q4HR PRN Dry Eye(s) Ondansetron HCl 4 mg 09/11/18 19:30 Zofran IV Q8H PRN Nausea And Vomiting Scopolamine 1 each 09/18/18 18:00 10/09/18 19:08 Transderm-Scop TD 1 each Q3D GIA Administration Simple Syrup 15 ml 09/30/18 12:01 10/07/18 06:18 Simple Syrup FEEDTUBE 15 ml PRN PRN Administration Hypoglycemia Simple Syrup 30 ml 09/30/18 12:01 Simple Syrup FEEDTUBE PRN PRN Hypoglycemia Sodium Bicarbonate 325 mg 09/30/18 12:01 Sodium Bicarbonate FEEDTUBE PRN PRN For Clogged Feeding Tube Sodium Chloride 10 ml 09/11/18 22:00 10/11/18 21:30 Sodium Chloride Flush Syringe 10 Ml IV 10 ml BID GIA Administration Sodium Chloride 10 ml 09/11/18 19:30 Sodium Chloride Flush Syringe 10 Ml IV PRN PRN LINE FLUSH Tenofovir Disoproxil Fumarate 300 mg 10/13/18 10:00 Viread PO Q96H [facility]
[2018-10-12] MEDS ORDERED: VANCOMYCIN 1,250 MG in NACL 0.9% 250ML 250 ML IV ONE (10:00)
[2018-10-12] MEDS: CORDARONE PO SCH ×2 (10:52→21:15)
[2018-10-12] MEDS: PEPCID PO SCH (10:52)
[2018-10-12] MEDS: LOPRESSOR PO SCH ×2 (10:52→21:15)
[2018-10-12] MEDS: FOLVITE PO SCH (10:52)
[2018-10-12] MEDS: DIFLUCAN PO SCH (10:53)
[2018-10-12] MEDS: MAXIPIME/NS 2 GM/100 ML 2 GM/100 ML BAG IV SCH (10:53)
--- NOTE | 2018-10-12 10:54 | Progress Note ---
Assessment and Plan - Patient Problems (1) Acute respiratory failure Current Visit: Yes Status: Acute Qualifiers: Respiratory failure complication: hypoxia Qualified Code(s): J96.01 - Acute respiratory failure with hypoxia Plan to address problem: Pt stable. I do not see anything on today's exam to suggest that the patient can indicate his wishes or give consent for surgery. The appropriate step would be to wait for the sister to make a final decision. I will follow along peripherally. Please call with questions. Signed consent on chart (but need to wait for confirmation from the sister). Time=15min Subjective Date of service: 10/12/18 Narrative: staff reports intermittent signs of interaction. Nothing consistent. No major events o/n. Trach/PEG cancelled yesterday per sister's request Objective Vital Signs - 12hr 10/11/18 10/11/18 10/11/18 23:00 23:41 23:46 Temperature Pulse Rate 79 81 80 Pulse Rate [ Throughout] Respiratory 14 15 3 L Rate Respiratory Rate [ Throughout] Blood Pressure 123/71 132/78 123/71 O2 Sat by Pulse 100 100 100 Oximetry 10/11/18 10/12/18 10/12/18 23:47 00:00 01:00 Temperature 97.5 F L Pulse Rate 83 83 Pulse Rate [ Throughout] Respiratory 14 17 Rate Respiratory Rate [ Throughout] Blood Pressure 136/77 118/70 O2 Sat by Pulse 99 100 Oximetry 10/12/18 10/12/18 10/12/18 02:00 02:15 03:00 Temperature Pulse Rate 86 86 Pulse Rate [ 79 Throughout] Respiratory 12 16 Rate Respiratory 18 Rate [ Throughout] Blood Pressure 117/78 127/82 O2 Sat by Pulse 100 100 Oximetry 10/12/18 10/12/18 10/12/18 03:05 04:00 05:00 Temperature 98.5 F Pulse Rate 85 85 89 Pulse Rate [ Throughout] Respiratory 8 L 14 15 Rate Respiratory Rate [ Throughout] Blood Pressure 127/82 128/68 128/77 O2 Sat by Pulse 100 100 100 Oximetry 10/12/18 10/12/18 10/12/18 06:00 06:09 09:15 Temperature Pulse Rate 87 88 91 H Pulse Rate [ 89 Throughout] Respiratory 23 24 26 H Rate Respiratory 19 Rate [ Throughout] Blood Pressure 128/71 128/71 136/76 O2 Sat by Pulse 98 100 Oximetry 10/12/18 09:25 Temperature Pulse Rate Pulse Rate [ 92 H Throughout] Respiratory Rate Respiratory 18 Rate [ Throughout] Blood Pressure O2 Sat by Pulse Oximetry - General physical appearance no distress, no pain, other (awake.) - Neck trachea midline, no venous distension, other (no signs of infection) - Respiratory normal expansion, normal respiratory effort - Abdomen soft, not tender - Neurologic other (does not follow any commands) - Labs 10/12/18 03:30 10/12/18 03:30 Diabetes panel 10/12/18 Range/Units 03:30 Sodium 141 (137-145) mmol/L Potassium 4.3 (3.6-5.0) mmol/L Chloride 102.9 (98-107) mmol/L Carbon Dioxide 18 L (22-30) mmol/L BUN 111 H (9-20) mg/dL Creatinine 7.3 H (0.8-1.5) mg/dL Glucose 93 (75-100) mg/dL Calcium 7.9 L (8.4-10.2) mg/dL Calcium panel 10/12/18 Range/Units 03:30 Calcium 7.9 L (8.4-10.2) mg/dL Pituitary panel 10/12/18 Range/Units 03:30 Sodium 141 (137-145) mmol/L Potassium 4.3 (3.6-5.0) mmol/L Chloride 102.9 (98-107) mmol/L Carbon Dioxide 18 L (22-30) mmol/L BUN 111 H (9-20) mg/dL Creatinine 7.3 H (0.8-1.5) mg/dL Glucose 93 (75-100) mg/dL Calcium 7.9 L (8.4-10.2) mg/dL Adrenal panel 10/12/18 Range/Units 03:30 Sodium 141 (137-145) mmol/L Potassium 4.3 (3.6-5.0) mmol/L Chloride 102.9 (98-107) mmol/L Carbon Dioxide 18 L (22-30) mmol/L BUN 111 H (9-20) mg/dL Creatinine 7.3 H (0.8-1.5) mg/dL Glucose 93 (75-100) mg/dL Calcium 7.9 L (8.4-10.2) mg/dL
[2018-10-12] MEDS: SODIUM CHLORIDE FLUSH SYRINGE 10 ML IV SCH ×2 (11:01→21:21)
[2018-10-12] MEDS: MEPRON PO SCH (11:02)
[2018-10-12] MEDS: TIVICAY PO SCH (11:02)
[2018-10-12] MEDS: CYTOVENE IV SCH (11:15)
[2018-10-12] MEDS: NACL 0.9% IV SCH (11:15)
[2018-10-12] MEDS ORDERED: LASIX IV ONE (12:00)
--- NOTE | 2018-10-12 12:37 | Progress Note ---
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 - continue Robinul & scopolamine for secretion control (increased Robinul to q6h) - continue to hold all other sedating medications - will continue daytime SBT's for now while following mental status - continue anti-infective's per ID recs (ART has been started appropriately) - reglan stopped - continue supplemental oxygen to keep sats > 90% - continue bronchodilators with pulmonary hygiene per RT - Continue empiric and targeted anti-infective's per ID recs antibiotics per ID - continue set rate at 12/min - continue daily SBT's - daily SAT's once sedation resumed - continue IV heparin for NSTEMI - continue Robinul 2 mg q8h for secretions - IV amiodarone stopped - cardiology evaluation ongoing - diarrhea improved - continue fluconazole for candidiasis - watch for drug-drug interactions - continue enteral nutrition as tolerated - when resumed target sedation for RASS 0 to -1 - PT/OT/ROM exercises as tolerated - mobility protocol for pressure ulcer prophylaxis - continue GI & VTE prophylaxis - continue other care per attending / other consultants ...... re-evaluate in am & prn ..... care plan discussed with relative who will be here for his trach/peg on and all pertinent question were answered as best i could The high probability of a clinically significant, sudden or life threatening deterioration of the [cardiac, respiratory and neurologic] system(s) required my full and direct attention, intervention and personal management. The aggregate critical care time was [36] minutes. This time is in addition to time spent performing reported procedures but includes the following: [x] Data Review and interpretation [x] Patient assessment and monitoring of vital signs [x] Documentation [x] Medication orders and management Subjective Date of service: 10/12/18 Principal diagnosis: Severe sepsis; Ac hypoxemic Resp failure; [place]. Pneumonia; Ac encephalopathy Interval history: Patient is seen today for: Severe sepsis (present on admission with fever, tachycardia, hypotension and elevated lactate); Acute hypoxemic Respiratory failure; Bilateral pneumonia; Acute encephalopathy (Toxic / Metabolic); Atrial Fibrillation with RVR Seen and examined at bedside; 24hour events reviewed; nursing and respiratory care staff consulted; no adverse overnight events reported to me; resting peacefully in bed; minimally responsive but suspect depression element; tenuously tolerating PSV trials at this point; NO emesis or overt aspiration Objective Vital Signs - 12hr 10/12/18 10/12/18 10/12/18 01:00 02:00 02:15 Temperature Pulse Rate 83 86 Pulse Rate [ 79 Throughout] Respiratory 17 12 Rate Respiratory 18 Rate [ Throughout] Blood Pressure 118/70 117/78 O2 Sat by Pulse 100 100 Oximetry 10/12/18 10/12/18 10/12/18 03:00 03:05 04:00 Temperature 98.5 F Pulse Rate 86 85 85 Pulse Rate [ Throughout] Respiratory 16 8 L 14 Rate Respiratory Rate [ Throughout] Blood Pressure 127/82 127/82 128/68 O2 Sat by Pulse 100 100 100 Oximetry 10/12/18 10/12/18 10/12/18 05:00 06:00 06:09 Temperature Pulse Rate 89 87 88 Pulse Rate [ Throughout] Respiratory 15 23 24 Rate Respiratory Rate [ Throughout] Blood Pressure 128/77 128/71 128/71 O2 Sat by Pulse 100 98 Oximetry 10/12/18 10/12/18 10/12/18 09:15 09:25 10:52 Temperature Pulse Rate 91 H 90 Pulse Rate [ 89 92 H Throughout] Respiratory 26 H Rate Respiratory 19 18 Rate [ Throughout] Blood Pressure 136/76 123/60 O2 Sat by Pulse 100 Oximetry 10/12/18 11:36 Temperature Pulse Rate 100 H Pulse Rate [ Throughout] Respiratory 26 H Rate Respiratory Rate [ Throughout] Blood Pressure 134/72 O2 Sat by Pulse 100 Oximetry Constitutional: lethargic, agitated, appears uncomfortable, other (young looking AAM, normocephalic with mildly increased respiratory effort at rest) Eyes: non-icteric ENT: oropharynx moist, other (ETT 25 cm NIKA) Neck: supple, no lymphadenopathy, other (no thyromegaly) Effort: normal Ascultation: Bilateral: rhonchi (scant) Percussion: Bilateral: not dull Cardiovascular: regular rate and rhythm, other (S1,S2, no murmurs, gallps or rubs) Gastrointestinal: normoactive bowel sounds, soft, non-tender, non-distended Integumentary: rash Extremities: no cyanosis, pulses normal, no ischemia or petechiae, edema Neurologic: non-focal exam (grossly), pupils equal and round, other (Left sided hemiparesis) Psychiatric: other (unable to assess) CBC and BMP: 10/19/18 14:54 10/19/18 06:15 ABG, PT/INR, D-dimer: ABG POC ABG pH 7.318 (7.35-7.45) L 10/11/18 16:41 POC ABG pCO2 37.5 (35-45) 10/11/18 16:41 POC ABG pO2 91 (80-105) 10/11/18 16:41 POC ABG HCO3 19.3 10/11/18 16:41 POC ABG Total CO2 20 10/11/18 16:41 POC ABG O2 Sat 96 10/11/18 16:41 PT/INR, D-dimer PT 16.0 Sec. (12.2-14.9) H 10/10/18 08:09 INR 1.20 (0.87-1.13) H 10/10/18 08:09 Abnormal lab findings: Abnormal Labs 09/11/18 09/11/18 09/11/18 18:00 18:00 18:00 WBC 1.9 L* RBC Hgb Hct RDW Plt Count 130 L Seg Neuts % (Manual) Lymphocytes % (Manual) Monocytes % (Manual) 16.0 H Eosinophils % (Manual) Basophils % (Manual) Nucleated RBC % Seg Neutrophils # Man 0.9 L Abs Lymphs (Manual) Lymphocytes # (Manual) 0.5 L PT INR APTT Heparin Anti-Xa Level POC ABG pH POC ABG pCO2 POC ABG pO2 Sodium 131 L Potassium Chloride Carbon Dioxide 17 L BUN 21 H Creatinine Glucose 126 H POC Glucose Lactic Acid 2.60 H* Calcium 8.1 L Phosphorus Magnesium Iron TIBC Ferritin AST 123 H ALT 115 H Total Creatine Kinase Total Protein Albumin 3.0 L Vitamin B12 Folate TSH Free T4 Urine WBC (Auto) Urine Creatinine Urine Chloride Urine Total Protein CSF VDRL Lymph Enumerat CD4/CD8 Absolute CD3 Count % CD4 Cells Absolute CD4 Count % CD8 Cells Absolute CD19 Count T.pallidum Ab (FTA-ABS) HIV-1 RNA PCR copies/ml HIV-1 RNA (PCR) log Miscellaneous Test 09/11/18 09/13/18 09/13/18 19:01 04:28 07:31 WBC 2.0 L RBC Hgb Hct RDW Plt Count 116 L Seg Neuts % (Manual) Lymphocytes % (Manual) Monocytes % (Manual) 8.0 H Eosinophils % (Manual) Basophils % (Manual) Nucleated RBC % Seg Neutrophils # Man 1.0 L Abs Lymphs (Manual) Lymphocytes # (Manual) 0.5 L PT INR APTT Heparin Anti-Xa Level POC ABG pH POC ABG pCO2 POC ABG pO2 Sodium Potassium Chloride 110.4 H Carbon Dioxide 19 L BUN Creatinine Glucose POC Glucose Lactic Acid 3.70 H* Calcium 7.9 L Phosphorus Magnesium Iron TIBC Ferritin AST ALT Total Creatine Kinase Total Protein Albumin Vitamin B12 Folate TSH Free T4 Urine WBC (Auto) Urine Creatinine Urine Chloride Urine Total Protein CSF VDRL Lymph Enumerat CD4/CD8 Absolute CD3 Count % CD4 Cells Absolute CD4 Count % CD8 Cells Absolute CD19 Count T.pallidum Ab (FTA-ABS) HIV-1 RNA PCR copies/ml HIV-1 RNA (PCR) log Miscellaneous Test 09/13/18 09/13/18 09/13/18 07:31 12:29 12:29 WBC RBC Hgb Hct RDW Plt Count Seg Neuts % (Manual) Lymphocytes % (Manual) Monocytes % (Manual) Eosinophils % (Manual) Basophils % (Manual) Nucleated RBC % Seg Neutrophils # Man Abs Lymphs (Manual) 309 L Lymphocytes # (Manual) PT INR APTT Heparin Anti-Xa Level POC ABG pH POC ABG pCO2 POC ABG pO2 Sodium Potassium Chloride Carbon Dioxide BUN Creatinine Glucose POC Glucose Lactic Acid Calcium Phosphorus Magnesium Iron TIBC Ferritin AST 70 H ALT 68 H Total Creatine Kinase Total Protein Albumin 2.5 L Vitamin B12 Folate TSH Free T4 Urine WBC (Auto) Urine Creatinine Urine Chloride Urine Total Protein CSF VDRL Lymph Enumerat CD4/CD8 0.01 L Absolute CD3 Count 220 L % CD4 Cells 1 L Absolute CD4 Count 4 L % CD8 Cells 70 H Absolute CD19 Count 54 L T.pallidum Ab (FTA-ABS) HIV-1 RNA PCR copies/ml 48790 H HIV-1 RNA (PCR) log 4.71 H Miscellaneous Test 09/13/18 09/14/18 09/14/18 12:29 07:17 16:34 WBC RBC Hgb Hct RDW Plt Count Seg Neuts % (Manual) Lymphocytes % (Manual) Monocytes % (Manual) Eosinophils % (Manual) Basophils % (Manual) Nucleated RBC % Seg Neutrophils # Man Abs Lymphs (Manual) Lymphocytes # (Manual) PT INR APTT Heparin Anti-Xa Level POC ABG pH POC ABG pCO2 POC ABG pO2 Sodium Potassium 3.4 L Chloride Carbon Dioxide 18 L BUN Creatinine Glucose 104 H POC Glucose Lactic Acid Calcium 7.6 L Phosphorus Magnesium Iron TIBC Ferritin AST 49 H ALT Total Creatine Kinase Total Protein Albumin 2.5 L Vitamin B12 Folate TSH Free T4 Urine WBC (Auto) Urine Creatinine Urine Chloride Urine Total Protein CSF VDRL Lymph Enumerat CD4/CD8 Absolute CD3 Count % CD4 Cells Absolute CD4 Count % CD8 Cells Absolute CD19 Count T.pallidum Ab (FTA-ABS) Reactive H HIV-1 RNA PCR copies/ml HIV-1 RNA (PCR) log Miscellaneous Test Flexitest 1 H 09/15/18 09/15/18 09/15/18 05:05 05:05 Unknown WBC 1.6 L* RBC Hgb 10.4 L Hct 31.1 L D RDW Plt Count 113 L Seg Neuts % (Manual) Lymphocytes % (Manual) Monocytes % (Manual) Eosinophils % (Manual) Basophils % (Manual) Nucleated RBC % Seg Neutrophils # Man Abs Lymphs (Manual) Lymphocytes # (Manual) PT INR APTT Heparin Anti-Xa Level POC ABG pH POC ABG pCO2 POC ABG pO2 Sodium Potassium Chloride 107.9 H Carbon Dioxide 18 L BUN 6 L Creatinine Glucose POC Glucose Lactic Acid Calcium 7.4 L Phosphorus Magnesium Iron TIBC Ferritin AST ALT Total Creatine Kinase Total Protein Albumin Vitamin B12 Folate TSH Free T4 Urine WBC (Auto) Urine Creatinine Urine Chloride Urine Total Protein CSF VDRL Reactive 1:8 H Lymph Enumerat CD4/CD8 Absolute CD3 Count % CD4 Cells Absolute CD4 Count % CD8 Cells Absolute CD19 Count T.pallidum Ab (FTA-ABS) HIV-1 RNA PCR copies/ml HIV-1 RNA (PCR) log Miscellaneous Test 09/16/18 09/16/18 09/16/18 06:55 11:41 11:41 WBC 2.8 L RBC Hgb 10.9 L Hct 33.5 L RDW Plt Count 135 L Seg Neuts % (Manual) Lymphocytes % (Manual) Monocytes % (Manual) Eosinophils % (Manual) Basophils % (Manual) Nucleated RBC % Seg Neutrophils # Man Abs Lymphs (Manual) Lymphocytes # (Manual) PT INR APTT Heparin Anti-Xa Level POC ABG pH POC ABG pCO2 POC ABG pO2 Sodium Potassium Chloride Carbon Dioxide BUN Creatinine Glucose POC Glucose Lactic Acid Calcium Phosphorus Magnesium Iron TIBC Ferritin AST ALT Total Creatine Kinase Total Protein Albumin Vitamin B12 Folate TSH 4.210 H Free T4 0.72 L Urine WBC (Auto) Urine Creatinine Urine Chloride Urine Total Protein CSF VDRL Lymph Enumerat CD4/CD8 Absolute CD3 Count % CD4 Cells Absolute CD4 Count % CD8 Cells Absolute CD19 Count T.pallidum Ab (FTA-ABS) HIV-1 RNA PCR copies/ml HIV-1 RNA (PCR) log Miscellaneous Test 09/16/18 09/16/18 09/17/18 11:41 15:43 05:13 WBC 2.0 L RBC Hgb 10.9 L Hct 32.7 L RDW Plt Count Seg Neuts % (Manual) Lymphocytes % (Manual) Monocytes % (Manual) Eosinophils % (Manual) Basophils % (Manual) Nucleated RBC % Seg Neutrophils # Man Abs Lymphs (Manual) Lymphocytes # (Manual) PT INR APTT Heparin Anti-Xa Level POC ABG pH POC ABG pCO2 29.3 L POC ABG pO2 70 L Sodium Potassium Chloride Carbon Dioxide BUN Creatinine Glucose POC Glucose Lactic Acid Calcium Phosphorus Magnesium Iron TIBC Ferritin AST ALT Total Creatine Kinase Total Protein Albumin Vitamin B12 934.5 H Folate TSH Free T4 Urine WBC (Auto) Urine Creatinine Urine Chloride Urine Total Protein CSF VDRL Lymph Enumerat CD4/CD8 Absolute CD3 Count % CD4 Cells Absolute CD4 Count % CD8 Cells Absolute CD19 Count T.pallidum Ab (FTA-ABS) HIV-1 RNA PCR copies/ml HIV-1 RNA (PCR) log Miscellaneous Test 09/17/18 09/17/18 09/18/18 05:13 21:57 12:46 WBC RBC Hgb Hct RDW Plt Count Seg Neuts % (Manual) Lymphocytes % (Manual) Monocytes % (Manual) Eosinophils % (Manual) Basophils % (Manual) Nucleated RBC % Seg Neutrophils # Man Abs Lymphs (Manual) Lymphocytes # (Manual) PT INR APTT Heparin Anti-Xa Level POC ABG pH POC ABG pCO2 POC ABG pO2 Sodium Potassium Chloride 107.2 H Carbon Dioxide 21 L BUN 3 L Creatinine 0.7 L Glucose POC Glucose 108 H Lactic Acid Calcium 7.9 L Phosphorus Magnesium Iron TIBC Ferritin AST ALT Total Creatine Kinase Total Protein 6.1 L Albumin 2.6 L Vitamin B12 Folate TSH Free T4 0.75 L Urine WBC (Auto) Urine Creatinine Urine Chloride Urine Total Protein CSF VDRL Lymph Enumerat CD4/CD8 Absolute CD3 Count % CD4 Cells Absolute CD4 Count % CD8 Cells Absolute CD19 Count T.pallidum Ab (FTA-ABS) HIV-1 RNA PCR copies/ml HIV-1 RNA (PCR) log Miscellaneous Test 09/18/18 09/19/18 09/19/18 12:46 04:57 04:57 WBC 2.1 L RBC Hgb 11.4 L Hct 34.2 L RDW Plt Count Seg Neuts % (Manual) Lymphocytes % (Manual) Monocytes % (Manual) Eosinophils % (Manual) Basophils % (Manual) Nucleated RBC % Seg Neutrophils # Man Abs Lymphs (Manual) Lymphocytes # (Manual) PT INR APTT Heparin Anti-Xa Level POC ABG pH POC ABG pCO2 POC ABG pO2 Sodium Potassium Chloride Carbon Dioxide 19 L BUN 6 L Creatinine Glucose POC Glucose Lactic Acid Calcium 7.9 L Phosphorus Magnesium Iron TIBC Ferritin AST ALT Total Creatine Kinase Total Protein Albumin Vitamin B12 Folate TSH 5.190 H Free T4 Urine WBC (Auto) Urine Creatinine Urine Chloride Urine Total Protein CSF VDRL Lymph Enumerat CD4/CD8 Absolute CD3 Count % CD4 Cells Absolute CD4 Count % CD8 Cells Absolute CD19 Count T.pallidum Ab (FTA-ABS) HIV-1 RNA PCR copies/ml HIV-1 RNA (PCR) log Miscellaneous Test 09/19/18 09/19/18 09/20/18 15:00 15:00 05:33 WBC RBC Hgb Hct RDW Plt Count Seg Neuts % (Manual) Lymphocytes % (Manual) Monocytes % (Manual) Eosinophils % (Manual) Basophils % (Manual) Nucleated RBC % Seg Neutrophils # Man Abs Lymphs (Manual) Lymphocytes # (Manual) PT INR APTT Heparin Anti-Xa Level POC ABG pH POC ABG pCO2 POC ABG pO2 Sodium 136 L Potassium Chloride Carbon Dioxide 19 L BUN 7 L Creatinine Glucose POC Glucose Lactic Acid Calcium Phosphorus Magnesium Iron TIBC Ferritin AST ALT Total Creatine Kinase Total Protein Albumin Vitamin B12 Folate TSH Free T4 Urine WBC (Auto) Urine Creatinine Urine Chloride Urine Total Protein CSF VDRL Reactive 1:4 H Lymph Enumerat CD4/CD8 Absolute CD3 Count % CD4 Cells Absolute CD4 Count % CD8 Cells Absolute CD19 Count T.pallidum Ab (FTA-ABS) HIV-1 RNA PCR copies/ml HIV-1 RNA (PCR) log Miscellaneous Test Flexitest 1 H 09/20/18 09/21/18 09/21/18 06:52 01:06 03:49 WBC 2.5 L RBC Hgb Hct RDW Plt Count Seg Neuts % (Manual) Lymphocytes % (Manual) Monocytes % (Manual) Eosinophils % (Manual) Basophils % (Manual) Nucleated RBC % Seg Neutrophils # Man Abs Lymphs (Manual) Lymphocytes # (Manual) PT INR APTT Heparin Anti-Xa Level POC ABG pH 7.159 L POC ABG pCO2 32.9 L 70.0 H POC ABG pO2 62 L 254 H Sodium Potassium Chloride Carbon Dioxide BUN Creatinine Glucose POC Glucose Lactic Acid Calcium Phosphorus Magnesium Iron TIBC Ferritin AST ALT Total Creatine Kinase Total Protein Albumin Vitamin B12 Folate TSH Free T4 Urine WBC (Auto) Urine Creatinine Urine Chloride Urine Total Protein CSF VDRL Lymph Enumerat CD4/CD8 Absolute CD3 Count % CD4 Cells Absolute CD4 Count % CD8 Cells Absolute CD19 Count T.pallidum Ab (FTA-ABS) HIV-1 RNA PCR copies/ml HIV-1 RNA (PCR) log Miscellaneous Test 09/21/18 09/21/18 09/21/18 04:15 04:15 04:25 WBC 3.1 L RBC Hgb 11.6 L Hct RDW Plt Count Seg Neuts % (Manual) Lymphocytes % (Manual) Monocytes % (Manual) 12.0 H Eosinophils % (Manual) Basophils % (Manual) Nucleated RBC % Seg Neutrophils # Man 1.6 L Abs Lymphs (Manual) Lymphocytes # (Manual) 0.5 L PT INR APTT Heparin Anti-Xa Level POC ABG pH POC ABG pCO2 POC ABG pO2 Sodium Potassium 6.1 H* D Chloride Carbon Dioxide 19 L BUN Creatinine Glucose 108 H POC Glucose Lactic Acid Calcium Phosphorus Magnesium Iron TIBC Ferritin AST ALT Total Creatine Kinase 685 H Total Protein Albumin Vitamin B12 Folate TSH Free T4 Urine WBC (Auto) Urine Creatinine Urine Chloride Urine Total Protein CSF VDRL Lymph Enumerat CD4/CD8 Absolute CD3 Count % CD4 Cells Absolute CD4 Count % CD8 Cells Absolute CD19 Count T.pallidum Ab (FTA-ABS) HIV-1 RNA PCR copies/ml HIV-1 RNA (PCR) log Miscellaneous Test 09/21/18 09/21/18 09/21/18 09:59 10:07 11:00 WBC RBC Hgb 11.7 L Hct RDW Plt Count Seg Neuts % (Manual) Lymphocytes % (Manual) Monocytes % (Manual) Eosinophils % (Manual) Basophils % (Manual) Nucleated RBC % Seg Neutrophils # Man Abs Lymphs (Manual) Lymphocytes # (Manual) PT INR APTT Heparin Anti-Xa Level POC ABG pH 7.301 L POC ABG pCO2 POC ABG pO2 109 H Sodium Potassium 6.5 H* Chloride Carbon Dioxide 18 L BUN Creatinine 2.1 H D Glucose POC Glucose Lactic Acid Calcium 8.1 L Phosphorus Magnesium Iron TIBC Ferritin AST 94 H ALT Total Creatine Kinase Total Protein Albumin 2.8 L Vitamin B12 Folate TSH Free T4 Urine WBC (Auto) Urine Creatinine Urine Chloride Urine Total Protein CSF VDRL Lymph Enumerat CD4/CD8 Absolute CD3 Count % CD4 Cells Absolute CD4 Count % CD8 Cells Absolute CD19 Count T.pallidum Ab (FTA-ABS) HIV-1 RNA PCR copies/ml HIV-1 RNA (PCR) log Miscellaneous Test 09/21/18 09/21/18 09/21/18 15:00 21:54 21:54 WBC RBC Hgb Hct RDW Plt Count Seg Neuts % (Manual) Lymphocytes % (Manual) Monocytes % (Manual) Eosinophils % (Manual) Basophils % (Manual) Nucleated RBC % Seg Neutrophils # Man Abs Lymphs (Manual) Lymphocytes # (Manual) PT 19.9 H INR 1.65 H APTT 40.9 H Heparin Anti-Xa Level 0.98 H POC ABG pH POC ABG pCO2 POC ABG pO2 Sodium Potassium 5.2 H Chloride Carbon Dioxide BUN Creatinine Glucose POC Glucose Lactic Acid Calcium Phosphorus Magnesium Iron TIBC Ferritin AST ALT Total Creatine Kinase Total Protein Albumin Vitamin B12 Folate TSH Free T4 Urine WBC (Auto) Urine Creatinine Urine Chloride Urine Total Protein CSF VDRL Lymph Enumerat CD4/CD8 Absolute CD3 Count % CD4 Cells Absolute CD4 Count % CD8 Cells Absolute CD19 Count T.pallidum Ab (FTA-ABS) HIV-1 RNA PCR copies/ml HIV-1 RNA (PCR) log Miscellaneous Test 09/21/18 09/22/18 09/22/18 22:57 03:01 05:27 WBC RBC Hgb Hct RDW Plt Count Seg Neuts % (Manual) Lymphocytes % (Manual) Monocytes % (Manual) Eosinophils % (Manual) Basophils % (Manual) Nucleated RBC % Seg Neutrophils # Man Abs Lymphs (Manual) Lymphocytes # (Manual) PT INR APTT Heparin Anti-Xa Level POC ABG pH POC ABG pCO2 32.7 L POC ABG pO2 Sodium Potassium Chloride Carbon Dioxide BUN Creatinine Glucose POC Glucose 124 H 128 H Lactic Acid Calcium Phosphorus Magnesium Iron TIBC Ferritin AST ALT Total Creatine Kinase Total Protein Albumin Vitamin B12 Folate TSH Free T4 Urine WBC (Auto) Urine Creatinine Urine Chloride Urine Total Protein CSF VDRL Lymph Enumerat CD4/CD8 Absolute CD3 Count % CD4 Cells Absolute CD4 Count % CD8 Cells Absolute CD19 Count T.pallidum Ab (FTA-ABS) HIV-1 RNA PCR copies/ml HIV-1 RNA (PCR) log Miscellaneous Test 09/22/18 09/22/18 09/22/18 07:00 07:00 11:32 WBC 1.8 L* RBC 3.59 L Hgb 10.1 L Hct 30.8 L RDW Plt Count 126 L Seg Neuts % (Manual) Lymphocytes % (Manual) Monocytes % (Manual) Eosinophils % (Manual) Basophils % (Manual) Nucleated RBC % Seg Neutrophils # Man Abs Lymphs (Manual) Lymphocytes # (Manual) PT INR APTT Heparin Anti-Xa Level POC ABG pH POC ABG pCO2 POC ABG pO2 Sodium Potassium Chloride Carbon Dioxide BUN 27 H Creatinine 2.0 H Glucose 128 H POC Glucose 123 H Lactic Acid Calcium 6.9 L Phosphorus Magnesium Iron TIBC Ferritin AST ALT Total Creatine Kinase Total Protein Albumin Vitamin B12 Folate TSH Free T4 Urine WBC (Auto) Urine Creatinine Urine Chloride Urine Total Protein CSF VDRL Lymph Enumerat CD4/CD8 Absolute CD3 Count % CD4 Cells Absolute CD4 Count % CD8 Cells Absolute CD19 Count T.pallidum Ab (FTA-ABS) HIV-1 RNA PCR copies/ml HIV-1 RNA (PCR) log Miscellaneous Test 09/22/18 09/22/18 09/22/18 15:52 18:18 23:52 WBC RBC Hgb Hct RDW Plt Count Seg Neuts % (Manual) Lymphocytes % (Manual) Monocytes % (Manual) Eosinophils % (Manual) Basophils % (Manual) Nucleated RBC % Seg Neutrophils # Man Abs Lymphs (Manual) Lymphocytes # (Manual) PT INR APTT Heparin Anti-Xa Level POC ABG pH POC ABG pCO2 48.7 H POC ABG pO2 Sodium Potassium Chloride Carbon Dioxide BUN Creatinine Glucose POC Glucose 110 H 124 H Lactic Acid Calcium Phosphorus Magnesium Iron TIBC Ferritin AST ALT Total Creatine Kinase Total Protein Albumin Vitamin B12 Folate TSH Free T4 Urine WBC (Auto) Urine Creatinine Urine Chloride Urine Total Protein CSF VDRL Lymph Enumerat CD4/CD8 Absolute CD3 Count % CD4 Cells Absolute CD4 Count % CD8 Cells Absolute CD19 Count T.pallidum Ab (FTA-ABS) HIV-1 RNA PCR copies/ml HIV-1 RNA (PCR) log Miscellaneous Test 09/23/18 09/23/18 09/23/18 04:10 05:55 05:55 WBC RBC Hgb 10.0 L Hct 30.3 L RDW Plt Count 117 L Seg Neuts % (Manual) Lymphocytes % (Manual) Monocytes % (Manual) Eosinophils % (Manual) Basophils % (Manual) Nucleated RBC % Seg Neutrophils # Man Abs Lymphs (Manual) Lymphocytes # (Manual) PT INR APTT Heparin Anti-Xa Level 0.26 L POC ABG pH POC ABG pCO2 POC ABG pO2 144 H Sodium Potassium Chloride Carbon Dioxide BUN Creatinine Glucose POC Glucose Lactic Acid Calcium Phosphorus Magnesium Iron TIBC Ferritin AST ALT Total Creatine Kinase Total Protein Albumin Vitamin B12 Folate TSH Free T4 Urine WBC (Auto) Urine Creatinine Urine Chloride Urine Total Protein CSF VDRL Lymph Enumerat CD4/CD8 Absolute CD3 Count % CD4 Cells Absolute CD4 Count % CD8 Cells Absolute CD19 Count T.pallidum Ab (FTA-ABS) HIV-1 RNA PCR copies/ml HIV-1 RNA (PCR) log Miscellaneous Test 09/23/18 09/23/18 09/23/18 08:10 08:10 23:57 WBC 1.3 L* RBC 3.53 L Hgb 9.9 L Hct 30.0 L RDW Plt Count 119 L Seg Neuts % (Manual) Lymphocytes % (Manual) Monocytes % (Manual) Eosinophils % (Manual) Basophils % (Manual) Nucleated RBC % Seg Neutrophils # Man Abs Lymphs (Manual) Lymphocytes # (Manual) PT INR APTT Heparin Anti-Xa Level POC ABG pH POC ABG pCO2 POC ABG pO2 Sodium Potassium Chloride Carbon Dioxide BUN Creatinine Glucose 122 H POC Glucose 115 H Lactic Acid Calcium 6.9 L Phosphorus Magnesium Iron TIBC Ferritin AST ALT Total Creatine Kinase Total Protein Albumin Vitamin B12 Folate TSH Free T4 Urine WBC (Auto) Urine Creatinine Urine Chloride Urine Total Protein CSF VDRL Lymph Enumerat CD4/CD8 Absolute CD3 Count % CD4 Cells Absolute CD4 Count % CD8 Cells Absolute CD19 Count T.pallidum Ab (FTA-ABS) HIV-1 RNA PCR copies/ml HIV-1 RNA (PCR) log Miscellaneous Test 09/24/18 09/24/18 09/24/18 12:04 14:42 18:10 WBC RBC Hgb Hct RDW Plt Count Seg Neuts % (Manual) Lymphocytes % (Manual) Monocytes % (Manual) Eosinophils % (Manual) Basophils % (Manual) Nucleated RBC % Seg Neutrophils # Man Abs Lymphs (Manual) Lymphocytes # (Manual) PT INR APTT Heparin Anti-Xa Level 0.76 H POC ABG pH POC ABG pCO2 POC ABG pO2 Sodium Potassium Chloride Carbon Dioxide BUN Creatinine Glucose POC Glucose 111 H 138 H Lactic Acid Calcium Phosphorus Magnesium Iron TIBC Ferritin AST ALT Total Creatine Kinase Total Protein Albumin Vitamin B12 Folate TSH Free T4 Urine WBC (Auto) Urine Creatinine Urine Chloride Urine Total Protein CSF VDRL Lymph Enumerat CD4/CD8 Absolute CD3 Count % CD4 Cells Absolute CD4 Count % CD8 Cells Absolute CD19 Count T.pallidum Ab (FTA-ABS) HIV-1 RNA PCR copies/ml HIV-1 RNA (PCR) log Miscellaneous Test 09/25/18 09/25/18 09/25/18 03:45 04:24 14:20 WBC RBC Hgb 9.7 L Hct 29.4 L RDW Plt Count 104 L Seg Neuts % (Manual) Lymphocytes % (Manual) Monocytes % (Manual) Eosinophils % (Manual) Basophils % (Manual) Nucleated RBC % Seg Neutrophils # Man Abs Lymphs (Manual) Lymphocytes # (Manual) PT INR APTT Heparin Anti-Xa Level POC ABG pH 7.460 H POC ABG pCO2 32.9 L POC ABG pO2 Sodium Potassium 3.5 L Chloride 110.3 H Carbon Dioxide BUN Creatinine Glucose 105 H POC Glucose Lactic Acid Calcium 6.7 L Phosphorus Magnesium Iron TIBC Ferritin AST 633 H ALT 481 H Total Creatine Kinase Total Protein 4.8 L D Albumin 1.9 L Vitamin B12 Folate TSH Free T4 Urine WBC (Auto) Urine Creatinine Urine Chloride Urine Total Protein CSF VDRL Lymph Enumerat CD4/CD8 Absolute CD3 Count % CD4 Cells Absolute CD4 Count % CD8 Cells Absolute CD19 Count T.pallidum Ab (FTA-ABS) HIV-1 RNA PCR copies/ml HIV-1 RNA (PCR) log Miscellaneous Test 09/26/18 09/26/18 09/26/18 06:15 06:15 10:43 WBC 1.2 L* RBC 3.32 L Hgb 9.2 L Hct 28.6 L RDW Plt Count 97 L Seg Neuts % (Manual) 24.0 L Lymphocytes % (Manual) 43.0 H Monocytes % (Manual) 19.0 H Eosinophils % (Manual) 8.0 H Basophils % (Manual) 2.0 H Nucleated RBC % 3.0 H Seg Neutrophils # Man 0.0 L Abs Lymphs (Manual) Lymphocytes # (Manual) 0.0 L PT INR APTT Heparin Anti-Xa Level POC ABG pH 7.459 H POC ABG pCO2 POC ABG pO2 141 H Sodium Potassium Chloride 112.8 H Carbon Dioxide BUN Creatinine Glucose 110 H POC Glucose Lactic Acid Calcium 7.0 L Phosphorus 0.90 L* Magnesium Iron TIBC Ferritin AST 362 H ALT 360 H Total Creatine Kinase Total Protein 4.9 L Albumin 1.5 L Vitamin B12 Folate TSH Free T4 Urine WBC (Auto) Urine Creatinine Urine Chloride Urine Total Protein CSF VDRL Lymph Enumerat CD4/CD8 Absolute CD3 Count % CD4 Cells Absolute CD4 Count % CD8 Cells Absolute CD19 Count T.pallidum Ab (FTA-ABS) HIV-1 RNA PCR copies/ml HIV-1 RNA (PCR) log Miscellaneous Test 09/26/18 09/27/18 09/28/18 13:56 04:11 07:49 WBC RBC Hgb 9.1 L Hct 29.1 L RDW Plt Count 96 L Seg Neuts % (Manual) Lymphocytes % (Manual) Monocytes % (Manual) Eosinophils % (Manual) Basophils % (Manual) Nucleated RBC % Seg Neutrophils # Man Abs Lymphs (Manual) Lymphocytes # (Manual) PT INR APTT Heparin Anti-Xa Level POC ABG pH POC ABG pCO2 POC ABG pO2 Sodium 146 H Potassium Chloride 111.6 H Carbon Dioxide BUN Creatinine Glucose POC Glucose 135 H Lactic Acid Calcium 7.4 L Phosphorus Magnesium Iron TIBC Ferritin AST ALT Total Creatine Kinase Total Protein Albumin Vitamin B12 Folate TSH Free T4 Urine WBC (Auto) Urine Creatinine Urine Chloride Urine Total Protein CSF VDRL Lymph Enumerat CD4/CD8 Absolute CD3 Count % CD4 Cells Absolute CD4 Count % CD8 Cells Absolute CD19 Count T.pallidum Ab (FTA-ABS) HIV-1 RNA PCR copies/ml HIV-1 RNA (PCR) log Miscellaneous Test 09/28/18 09/29/18 09/29/18 10:43 05:00 05:00 WBC 1.2 L* RBC 3.13 L Hgb 8.6 L Hct 27.3 L RDW Plt Count 137 L Seg Neuts % (Manual) Lymphocytes % (Manual) Monocytes % (Manual) 16.0 H Eosinophils % (Manual) Basophils % (Manual) Nucleated RBC % 4.0 H Seg Neutrophils # Man 0.5 L Abs Lymphs (Manual) Lymphocytes # (Manual) 0.3 L PT INR APTT Heparin Anti-Xa Level POC ABG pH 7.300 L POC ABG pCO2 53.9 H POC ABG pO2 Sodium 147 H Potassium 3.4 L Chloride 114.5 H Carbon Dioxide BUN Creatinine Glucose POC Glucose Lactic Acid Calcium 7.7 L Phosphorus Magnesium Iron TIBC Ferritin AST 69 H ALT 110 H Total Creatine Kinase Total Protein 5.2 L Albumin 1.9 L Vitamin B12 Folate TSH Free T4 Urine WBC (Auto) Urine Creatinine Urine Chloride Urine Total Protein CSF VDRL Lymph Enumerat CD4/CD8 Absolute CD3 Count % CD4 Cells Absolute CD4 Count % CD8 Cells Absolute CD19 Count T.pallidum Ab (FTA-ABS) HIV-1 RNA PCR copies/ml HIV-1 RNA (PCR) log Miscellaneous Test 09/29/18 09/29/18 09/30/18 06:07 13:22 05:19 WBC 0.9 L* RBC 3.03 L Hgb 8.6 L Hct 25.9 L RDW Plt Count Seg Neuts % (Manual) Lymphocytes % (Manual) Monocytes % (Manual) Eosinophils % (Manual) Basophils % (Manual) Nucleated RBC % Seg Neutrophils # Man Abs Lymphs (Manual) Lymphocytes # (Manual) PT INR APTT Heparin Anti-Xa Level POC ABG pH POC ABG pCO2 46.9 H POC ABG pO2 Sodium Potassium Chloride Carbon Dioxide BUN Creatinine Glucose POC Glucose 109 H Lactic Acid Calcium Phosphorus Magnesium Iron TIBC Ferritin AST ALT Total Creatine Kinase Total Protein Albumin Vitamin B12 Folate TSH Free T4 Urine WBC (Auto) Urine Creatinine Urine Chloride Urine Total Protein CSF VDRL Lymph Enumerat CD4/CD8 Absolute CD3 Count % CD4 Cells Absolute CD4 Count % CD8 Cells Absolute CD19 Count T.pallidum Ab (FTA-ABS) HIV-1 RNA PCR copies/ml HIV-1 RNA (PCR) log Miscellaneous Test 09/30/18 09/30/18 09/30/18 05:19 11:14 23:28 WBC RBC Hgb Hct RDW Plt Count Seg Neuts % (Manual) Lymphocytes % (Manual) Monocytes % (Manual) Eosinophils % (Manual) Basophils % (Manual) Nucleated RBC % Seg Neutrophils # Man Abs Lymphs (Manual) Lymphocytes # (Manual) PT INR APTT Heparin Anti-Xa Level 0.72 H POC ABG pH POC ABG pCO2 46.6 H POC ABG pO2 Sodium 150 H Potassium Chloride 115.2 H Carbon Dioxide BUN Creatinine Glucose POC Glucose Lactic Acid Calcium 7.9 L Phosphorus Magnesium Iron TIBC Ferritin AST ALT Total Creatine Kinase Total Protein Albumin Vitamin B12 Folate TSH Free T4 Urine WBC (Auto) Urine Creatinine Urine Chloride Urine Total Protein CSF VDRL Lymph Enumerat CD4/CD8 Absolute CD3 Count % CD4 Cells Absolute CD4 Count % CD8 Cells Absolute CD19 Count T.pallidum Ab (FTA-ABS) HIV-1 RNA PCR copies/ml HIV-1 RNA (PCR) log Miscellaneous Test 10/01/18 10/01/18 10/02/18 04:55 04:55 07:15 WBC 0.9 L* 0.7 L* RBC 3.01 L 2.92 L Hgb 8.4 L 8.4 L Hct 26.0 L 24.9 L RDW Plt Count Seg Neuts % (Manual) Lymphocytes % (Manual) Monocytes % (Manual) Eosinophils % (Manual) Basophils % (Manual) Nucleated RBC % Seg Neutrophils # Man Abs Lymphs (Manual) Lymphocytes # (Manual) PT INR APTT Heparin Anti-Xa Level POC ABG pH POC ABG pCO2 POC ABG pO2 Sodium 147 H Potassium 3.4 L Chloride 113.1 H Carbon Dioxide BUN 22 H Creatinine Glucose POC Glucose Lactic Acid Calcium 7.3 L Phosphorus Magnesium Iron TIBC Ferritin AST ALT Total Creatine Kinase Total Protein Albumin Vitamin B12 Folate TSH Free T4 Urine WBC (Auto) Urine Creatinine Urine Chloride Urine Total Protein CSF VDRL Lymph Enumerat CD4/CD8 Absolute CD3 Count % CD4 Cells Absolute CD4 Count % CD8 Cells Absolute CD19 Count T.pallidum Ab (FTA-ABS) HIV-1 RNA PCR copies/ml HIV-1 RNA (PCR) log Miscellaneous Test 10/02/18 10/03/18 10/03/18 07:15 06:12 06:12 WBC 0.8 L* RBC 2.96 L Hgb 8.5 L Hct 25.9 L RDW 15.4 H Plt Count Seg Neuts % (Manual) Lymphocytes % (Manual) Monocytes % (Manual) Eosinophils % (Manual) Basophils % (Manual) Nucleated RBC % Seg Neutrophils # Man Abs Lymphs (Manual) Lymphocytes # (Manual) PT INR APTT Heparin Anti-Xa Level POC ABG pH POC ABG pCO2 POC ABG pO2 Sodium Potassium 3.4 L 3.4 L Chloride 108.3 H Carbon Dioxide BUN Creatinine Glucose POC Glucose Lactic Acid Calcium 7.6 L 7.4 L Phosphorus Magnesium Iron TIBC Ferritin AST ALT Total Creatine Kinase Total Protein Albumin Vitamin B12 Folate TSH Free T4 Urine WBC (Auto) Urine Creatinine Urine Chloride Urine Total Protein CSF VDRL Lymph Enumerat CD4/CD8 Absolute CD3 Count % CD4 Cells Absolute CD4 Count % CD8 Cells Absolute CD19 Count T.pallidum Ab (FTA-ABS) HIV-1 RNA PCR copies/ml HIV-1 RNA (PCR) log Miscellaneous Test 10/03/18 10/03/18 10/04/18 11:45 13:23 01:40 WBC RBC Hgb Hct RDW Plt Count Seg Neuts % (Manual) Lymphocytes % (Manual) Monocytes % (Manual) Eosinophils % (Manual) Basophils % (Manual) Nucleated RBC % Seg Neutrophils # Man Abs Lymphs (Manual) Lymphocytes # (Manual) PT INR APTT Heparin Anti-Xa Level 1.34 H 0.26 L POC ABG pH POC ABG pCO2 POC ABG pO2 Sodium Potassium Chloride Carbon Dioxide BUN Creatinine Glucose POC Glucose Lactic Acid Calcium Phosphorus Magnesium 1.40 L Iron TIBC Ferritin AST ALT Total Creatine Kinase Total Protein Albumin Vitamin B12 Folate TSH Free T4 Urine WBC (Auto) Urine Creatinine Urine Chloride Urine Total Protein CSF VDRL Lymph Enumerat CD4/CD8 Absolute CD3 Count % CD4 Cells Absolute CD4 Count % CD8 Cells Absolute CD19 Count T.pallidum Ab (FTA-ABS) HIV-1 RNA PCR copies/ml HIV-1 RNA (PCR) log Miscellaneous Test 10/04/18 10/04/18 10/06/18 04:45 04:45 09:40 WBC 0.8 L* RBC 3.11 L Hgb 9.0 L Hct 27.4 L RDW 15.4 H Plt Count Seg Neuts % (Manual) Lymphocytes % (Manual) Monocytes % (Manual) Eosinophils % (Manual) Basophils % (Manual) Nucleated RBC % Seg Neutrophils # Man Abs Lymphs (Manual) Lymphocytes # (Manual) PT INR APTT Heparin Anti-Xa Level POC ABG pH POC ABG pCO2 POC ABG pO2 Sodium Potassium Chloride Carbon Dioxide BUN Creatinine 0.7 L Glucose POC Glucose Lactic Acid Calcium 7.5 L Phosphorus Magnesium Iron 35 L TIBC 157 L Ferritin AST ALT Total Creatine Kinase Total Protein Albumin Vitamin B12 Folate TSH Free T4 Urine WBC (Auto) Urine Creatinine Urine Chloride Urine Total Protein CSF VDRL Lymph Enumerat CD4/CD8 Absolute CD3 Count % CD4 Cells Absolute CD4 Count % CD8 Cells Absolute CD19 Count T.pallidum Ab (FTA-ABS) HIV-1 RNA PCR copies/ml HIV-1 RNA (PCR) log Miscellaneous Test 10/06/18 10/06/18 10/07/18 09:40 09:40 04:20 WBC 1.1 L* RBC 3.07 L Hgb 9.1 L Hct 27.3 L RDW 20.3 H Plt Count Seg Neuts % (Manual) Lymphocytes % (Manual) Monocytes % (Manual) Eosinophils % (Manual) Basophils % (Manual) Nucleated RBC % Seg Neutrophils # Man 0.7 L Abs Lymphs (Manual) Lymphocytes # (Manual) 0.3 L PT INR APTT Heparin Anti-Xa Level POC ABG pH POC ABG pCO2 POC ABG pO2 Sodium Potassium Chloride Carbon Dioxide BUN Creatinine Glucose POC Glucose Lactic Acid Calcium Phosphorus Magnesium Iron TIBC Ferritin 1126.0 H AST ALT Total Creatine Kinase Total Protein Albumin Vitamin B12 Folate 6.71 L TSH Free T4 Urine WBC (Auto) Urine Creatinine Urine Chloride Urine Total Protein CSF VDRL Lymph Enumerat CD4/CD8 Absolute CD3 Count % CD4 Cells Absolute CD4 Count % CD8 Cells Absolute CD19 Count T.pallidum Ab (FTA-ABS) HIV-1 RNA PCR copies/ml HIV-1 RNA (PCR) log Miscellaneous Test 10/07/18 10/07/18 10/09/18 04:20 15:38 04:20 WBC 1.1 L* RBC 3.35 L Hgb 9.9 L Hct 30.1 L RDW 21.4 H Plt Count Seg Neuts % (Manual) 19.0 L Lymphocytes % (Manual) 42.0 H Monocytes % (Manual) 18.0 H Eosinophils % (Manual) 15.0 H Basophils % (Manual) 2.0 H Nucleated RBC % Seg Neutrophils # Man 0.2 L Abs Lymphs (Manual) Lymphocytes # (Manual) 0.5 L PT INR APTT Heparin Anti-Xa Level POC ABG pH 7.516 H POC ABG pCO2 32.1 L POC ABG pO2 Sodium Potassium Chloride Carbon Dioxide BUN Creatinine 0.7 L Glucose POC Glucose Lactic Acid Calcium 7.9 L Phosphorus Magnesium Iron TIBC Ferritin AST ALT Total Creatine Kinase Total Protein 5.5 L Albumin 2.2 L Vitamin B12 Folate TSH Free T4 Urine WBC (Auto) Urine Creatinine Urine Chloride Urine Total Protein CSF VDRL Lymph Enumerat CD4/CD8 Absolute CD3 Count % CD4 Cells Absolute CD4 Count % CD8 Cells Absolute CD19 Count T.pallidum Ab (FTA-ABS) HIV-1 RNA PCR copies/ml HIV-1 RNA (PCR) log Miscellaneous Test 10/09/18 10/09/18 10/09/18 04:20 11:48 17:31 WBC RBC Hgb Hct RDW Plt Count Seg Neuts % (Manual) Lymphocytes % (Manual) Monocytes % (Manual) Eosinophils % (Manual) Basophils % (Manual) Nucleated RBC % Seg Neutrophils # Man Abs Lymphs (Manual) Lymphocytes # (Manual) PT INR APTT Heparin Anti-Xa Level POC ABG pH POC ABG pCO2 POC ABG pO2 Sodium Potassium 5.4 H Chloride Carbon Dioxide 21 L BUN 55 H 72 H Creatinine 3.8 H D 4.5 H Glucose 118 H POC Glucose 124 H Lactic Acid Calcium 8.3 L 8.2 L Phosphorus Magnesium Iron TIBC Ferritin AST ALT Total Creatine Kinase Total Protein Albumin Vitamin B12 Folate TSH Free T4 Urine WBC (Auto) Urine Creatinine Urine Chloride Urine Total Protein CSF VDRL Lymph Enumerat CD4/CD8 Absolute CD3 Count % CD4 Cells Absolute CD4 Count % CD8 Cells Absolute CD19 Count T.pallidum Ab (FTA-ABS) HIV-1 RNA PCR copies/ml HIV-1 RNA (PCR) log Miscellaneous Test 10/10/18 10/10/18 10/10/18 08:09 08:35 10:54 WBC 1.1 L* RBC 3.16 L Hgb 9.6 L Hct 28.8 L RDW 21.2 H Plt Count Seg Neuts % (Manual) 27.0 L Lymphocytes % (Manual) Monocytes % (Manual) 9.0 H Eosinophils % (Manual) 18.0 H Basophils % (Manual) 12.0 H Nucleated RBC % Seg Neutrophils # Man 0.3 L Abs Lymphs (Manual) Lymphocytes # (Manual) 0.3 L PT 16.0 H INR 1.20 H APTT Heparin Anti-Xa Level POC ABG pH POC ABG pCO2 POC ABG pO2 Sodium Potassium 5.5 H Chloride Carbon Dioxide 20 L BUN 83 H Creatinine 5.5 H Glucose 119 H POC Glucose Lactic Acid Calcium Phosphorus Magnesium Iron TIBC Ferritin AST ALT Total Creatine Kinase Total Protein Albumin Vitamin B12 Folate TSH Free T4 Urine WBC (Auto) Urine Creatinine Urine Chloride Urine Total Protein CSF VDRL Lymph Enumerat CD4/CD8 Absolute CD3 Count % CD4 Cells Absolute CD4 Count % CD8 Cells Absolute CD19 Count T.pallidum Ab (FTA-ABS) HIV-1 RNA PCR copies/ml HIV-1 RNA (PCR) log Miscellaneous Test 10/11/18 10/11/18 10/11/18 05:20 05:20 05:40 WBC 1.2 L* RBC 2.89 L Hgb 8.7 L Hct 26.0 L RDW 20.1 H Plt Count Seg Neuts % (Manual) Lymphocytes % (Manual) 8.0 L Monocytes % (Manual) 12.0 H Eosinophils % (Manual) 24.0 H Basophils % (Manual) 4.0 H Nucleated RBC % Seg Neutrophils # Man 0.6 L Abs Lymphs (Manual) Lymphocytes # (Manual) 0.1 L PT INR APTT Heparin Anti-Xa Level POC ABG pH POC ABG pCO2 POC ABG pO2 Sodium Potassium Chloride Carbon Dioxide 20 L BUN 102 H Creatinine 6.7 H Glucose POC Glucose Lactic Acid Calcium 8.3 L Phosphorus Magnesium Iron TIBC Ferritin AST ALT Total Creatine Kinase Total Protein Albumin Vitamin B12 Folate TSH Free T4 Urine WBC (Auto) 8.0 H Urine Creatinine Urine Chloride Urine Total Protein CSF VDRL Lymph Enumerat CD4/CD8 Absolute CD3 Count % CD4 Cells Absolute CD4 Count % CD8 Cells Absolute CD19 Count T.pallidum Ab (FTA-ABS) HIV-1 RNA PCR copies/ml HIV-1 RNA (PCR) log Miscellaneous Test 10/11/18 10/11/18 10/12/18 05:40 16:41 03:30 WBC 0.9 L* RBC 2.78 L Hgb 8.3 L Hct 25.1 L RDW 19.9 H Plt Count Seg Neuts % (Manual) Lymphocytes % (Manual) Monocytes % (Manual) Eosinophils % (Manual) 20.0 H Basophils % (Manual) Nucleated RBC % Seg Neutrophils # Man 0.5 L Abs Lymphs (Manual) Lymphocytes # (Manual) 0.3 L PT INR APTT Heparin Anti-Xa Level POC ABG pH 7.318 L POC ABG pCO2 POC ABG pO2 Sodium Potassium Chloride Carbon Dioxide BUN Creatinine Glucose POC Glucose Lactic Acid Calcium Phosphorus Magnesium Iron TIBC Ferritin AST ALT Total Creatine Kinase Total Protein Albumin Vitamin B12 Folate TSH Free T4 Urine WBC (Auto) Urine Creatinine 57.5 H Urine Chloride 35.1 L Urine Total Protein 44 H CSF VDRL Lymph Enumerat CD4/CD8 Absolute CD3 Count % CD4 Cells Absolute CD4 Count % CD8 Cells Absolute CD19 Count T.pallidum Ab (FTA-ABS) HIV-1 RNA PCR copies/ml HIV-1 RNA (PCR) log Miscellaneous Test 10/12/18 03:30 WBC RBC Hgb Hct RDW Plt Count Seg Neuts % (Manual) Lymphocytes % (Manual) Monocytes % (Manual) Eosinophils % (Manual) Basophils % (Manual) Nucleated RBC % Seg Neutrophils # Man Abs Lymphs (Manual) Lymphocytes # (Manual) PT INR APTT Heparin Anti-Xa Level POC ABG pH POC ABG pCO2 POC ABG pO2 Sodium Potassium Chloride Carbon Dioxide 18 L BUN 111 H Creatinine 7.3 H Glucose POC Glucose Lactic Acid Calcium 7.9 L Phosphorus Magnesium Iron TIBC Ferritin AST ALT Total Creatine Kinase Total Protein Albumin Vitamin B12 Folate TSH Free T4 Urine WBC (Auto) Urine Creatinine Urine Chloride Urine Total Protein CSF VDRL Lymph Enumerat CD4/CD8 Absolute CD3 Count % CD4 Cells Absolute CD4 Count % CD8 Cells Absolute CD19 Count T.pallidum Ab (FTA-ABS) HIV-1 RNA PCR copies/ml HIV-1 RNA (PCR) log Miscellaneous Test Chest x-ray: pending Allied health notes reviewed: nursing
--- NOTE | 2018-10-12 14:51 | Progress Note ---
Assessment and Plan Cultures: 09/11/2018 blood culture: no growth 09/13/2018 serum cryptococcus ag neg 09/14/2018 CSF cryptococcus ag neg 09/14/2018 stool Nona 09/15/2018 stool +Giardia ag 09/19/2018 CSF cryptococcus ag neg 09/21/2018 tracheal aspirate culture: Nona albicans 09/23/2018 blood culture: No growth 09/23/2018 Fungal blood culture: no growth thus far 10/09/2018 blood culture: No growth A/P: 33 y/o male with no PMH; admitted on 09/11/2018 due to 4 days-AMS/behavioral changes, nausea, vomiting, diarrhea, weight loss and cough: 1) Low grade fevers: continues since 10/08 NOW better ? likely IRIS related (ART started on 09/30) versus NGT-associated sinusitis/mastoiditis. shock resolved. Completed 10 days of Ceftriaxone, off since 10/03/2018. On ganciclovir for disseminated CMV. On vanco/cefepime for sinusitis/mastoiditis. 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 WBC remains low could be from CMV v/s ganciclovir. Clinically better - CMV DNA PCR 09/16/2018 is 1,058,978, 6 log - CMV DNA PCR 09/26/2018 is 710K, 5.85 log - CMV DNA PCR 10/03/2018 is 262K, 5.4 log 3) Acute respiratory failure: still on the vent, mainly due to mental status issues. PJP DFA negative. CXR stable without pneumonia. 4) Acute encephalopathy: NOT better; possibly from neurosyphilis v/s CMV encephalitis v/s metabolic etiology. Of note, MRI did not show ventriculitis. CSF YAYO virus DNA PCR neg. Toxo IgG negative. He has received 20 days of Pen G IV and Ganciclovir with minimal improvement, still somnolent and nystagmus noted ? neurosyphilis treatement failure ? other etiologies like metabolic, CVA. Discussed with neuro Dr Nazario EEG x 2 no epileptic activity - "Up to 4 EEGs over several months may be needed to capture interictal epileptiform activity". - repeat LP 10/10/3018 WBC 10, RBC 22K (traumatic), glu 47, prot 84 from 194, VDRL pending. - Seizures reported on 10/09-10/10 - CT head done showed mild atrophy. No acute intracranial abnormalities. Paranasal sinus disease and new opacification of m ultiple mastoid air cells on the right and a few on the left suggesting acute mastoiditis. - MRI brain repeat 10/10 significant bilateral mastoiditis, generalized brain atrophy and stable paranasal sinusitis 5) Neurosyphilis: CSF VDRL positive, off Ceftriaxone and back on IV Penicillin (will complete 21 days). 6) Diarrhea: likely due to Giardiasis as Giardia antigen positive in stool, in immunocompromised patient. Completed several days of Flagyl, stopped on 10/03/2018. 7) Oral candidiasis: on fluconazole, will need to continue as prophylaxis till immune reconstitution. 8) A.fib: cardiology following. On Amiodarone. 9) HIV/AIDS: newly diagnosed. Risk factor is MSM behavior. CD4=4. VL=50,700. 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 We started him on Tenofovir, Emtricitabine + Dolutegravir on 09/30/2018, watch closely for IRIS. 10) Neutropenia: likely from HIV/CMV myelosuppression. Also probably worse from ganciclovir. r/o disseminated MAC, thus far cultures negative. 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 12) NGT-associated sinusitis/mastoiditis, NGT changed to OGT. Recs: - Discussed with Dr Jimenes CSF was not sent for HSV as he was positive for neurosyphilis; if clinically not better would consider repeating LP for HSV PCR - Renal is considering starting patient on IV Solu-Medrol secondary to progressively worsening renal function, which it is ok from ID stand point, patient on week 2 of ART - Tenofovir, Emtricitabine + Dolutegravir and prophylaxis therapy for PJP/MAC - renal con board - all antibiotics are renally adjusted for CrCl < 10 - completed IV Penicillin G 24 million units daily for 21 days on 10/08/2018 - continue IV Ganciclovir 5 mg/kg 3times a week - renally adjusted again today, continue till CMV PCR is <200 - will repeat CMV DNA PCR on 10/17/2018 - continue atovaquone and azithromycin prophylaxis - continue fluconazole 200 mg daily PO as prophylaxis - continue HAART: Tenofovir, Emtricitabine + Dolutegravir watch closely for IRIS - renally adjusted today - monitor daily CBC, BMP - s/p neupogen 1 dose on 10/05/2018, hematology on board agree with additional Neupogen as needed from ID standpoint Overall prognosis poor/complex case Will follow Alayna Menendez MD Infectious Diseases Dispatcher [employer] [facility] ([facility]) M [phone] O [phone] Subjective Date of service: 10/12/18 Principal diagnosis: Severe sepsis; Ac hypoxemic Resp failure; [place]. Pneumonia; Ac encephalopathy Interval history: Patient remains alert but not following commands, intubated on CPAP, open eyes, no fever for 36h ROS: unable to obtain Objective - Exam Narrative Exam: Constitutional: Intubated alert no follows commands open eyes in NAD Head, Ears, Nose: Normocephalic, atraumatic. External ears, nose normal Eyes: Conjunctivae/corneas clear. No icterus. No ptosis.no nystagmus Neck:no JVD, left anterior neck large hard nodule non tender Oral: ETT, OGT Cardiovascular: tachycardic Respiratory: distant BS GI: Soft, non-tender; bowel sounds normal. No peritoneal signs Musculoskeletal: No pedal edema, no cyanosis. Skin: No rash or abscess. Hem/Lymphatic: No palpable cervical or supraclavicular nodes. No lymphangitis Psych: alert Neurological: alert, moves right hand, does not move left hand PICC line 2/6 - Constitutional Vitals: Vital Signs Temp Pulse Resp BP Pulse Ox 98.5 F 84 20 139/92 100 10/12/18 04:00 10/12/18 14:13 10/12/18 14:13 10/12/18 13:27 10/12/18 13:27 Temperature -Last 24 Hours Temperature 98.5 F Temperature 97.5 F Temperature 97.0 F Temperature 97.4 F - Labs CBC & Chem 7: 10/12/18 03:30 10/12/18 03:30 Labs: Abnormal lab results 10/11/18 10/12/18 10/12/18 Range/Units 16:41 03:30 03:30 WBC 0.9 L* (4.5-11.0) K/mm3 RBC 2.78 L (3.65-5.03) M/mm3 Hgb 8.3 L (11.8-15.2) gm/dl Hct 25.1 L (35.5-45.6) % RDW 19.9 H (13.2-15.2) % Eosinophils % (Manual) 20.0 H (0.0-4.3) % Seg Neutrophils # Man 0.5 L (1.8-7.7) K/mm3 Lymphocytes # (Manual) 0.3 L (1.2-5.4) K/mm3 POC ABG pH 7.318 L (7.35-7.45) POC ABG pCO2 (35-45) POC ABG pO2 (80-105) Carbon Dioxide 18 L (22-30) mmol/L BUN 111 H (9-20) mg/dL Creatinine 7.3 H (0.8-1.5) mg/dL Calcium 7.9 L (8.4-10.2) mg/dL 10/12/18 Range/Units 13:30 WBC (4.5-11.0) K/mm3 RBC (3.65-5.03) M/mm3 Hgb (11.8-15.2) gm/dl Hct (35.5-45.6) % RDW (13.2-15.2) % Eosinophils % (Manual) (0.0-4.3) % Seg Neutrophils # Man (1.8-7.7) K/mm3 Lymphocytes # (Manual) (1.2-5.4) K/mm3 POC ABG pH 7.336 L (7.35-7.45) POC ABG pCO2 31.5 L (35-45) POC ABG pO2 122 H (80-105) Carbon Dioxide (22-30) mmol/L BUN (9-20) mg/dL Creatinine (0.8-1.5) mg/dL Calcium (8.4-10.2) mg/dL
--- NOTE | 2018-10-12 14:58 | Progress Note ---
Assessment and Plan Assessment and plan: : Patient is 33 yo initially presented with diarrhea, found to have pneumonia, sepsis, HIV/AIDS(new diagnosis) with CD4 count of 4. He was started on abx for PJP. His mental status has worsened with confusion, lethargy. LP done . He was diagnosed with neurosyphilis. Started on Penicillin. Closest family is sister in [place], and dr. Baltazar spoke to her several times about diagnosis but did not tell her about HIV/AIDS because of patient confidentiality. The patient decompensated on 09/20/18 with acute hypoxemic respiratory failure and worsening toxic metabolic encephalopathy requiring transfer to ICU and intubation. He now remains on mechanical ventilation. The patient was also noted to develop SVT requiring amiodarone drip as well as heparin drip. Severe Sepsis. Etiology secondary to bacterial pneumonia +/- gastroenteritis with newly diagnosed with HIV. Fevers have re-emerged. Repeat blood cx per ID. ARF - Creatinine is trending up this morning was 7.3, could be due to his HIV, sepsis - nephrology is following Acute hypoxemic respiratory failure - Patient has pneumonia and altered mental status - Patient is intubated and on mechanical ventilation Disseminated CMV viremia: - continue IV Ganciclovir 5 mg/kg q12 hrs - Repeat LP was done and no significant change - VDRL reactive Toxic metabolic encephalopathy. 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 Of note, MRI did not show ventriculitis. Neurology re-consultation. Repeat A. fib with RVR. Converted to NSR. cont Amiodarone and metoprolol. Neurosyphilis: CSF VDRL positive, off Ceftriaxone and back on IV Penicillin (will complete 21 days). Diarrhea. Resolved, etiology likely secondary to Giardia. Giardia antigen positive in stool. Completed several days of Flagyl. Oral candidiasis. Fluconazole HIV/AIDS. New Diagnosis. Started on HAART on 09/30, Tenofovir, Emtricitabine + Dolutegravir watch closely for IRIS continue atovaquone and azithromycin prophylaxis Neutropenia. 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 Also probably worse from ganciclovir. r/o disseminated MAC, thus far cultures negative. WBC count this morning was 0.9. Hematology gave granix 2 doses. Prognosis poor. Sister hold off Trach and PEG. I have a long discussion with his sister on the phone. she had a Discussion with multiple doctors and explain everything but she said nobody explain what is going on. I personally discussed with her on the phone for 30 minutes and 16 minutes this morning and despite that she wants specific information about the prognosis, how long is going to be PEG and trach which are difficult to tell exactly but explained the prognosis in general. The high probability of a clinically significant, sudden or life threatening deterioration of the [neurological, respiratory and cardiac] system(s) required my full and direct attention, intervention and personal management. The aggr egate critical care time was [31] minutes. This time is in addition to time spent performing reported procedures but includes the following: [x] Data Review and interpretation [x] Patient assessment and monitoring of vital signs [x] Documentation [x] Medication orders and management History Interval history: Patient was seen and evaluated this morning, patient had fever overnight, patient is intubated and on mechanical ventilation. Hospitalist Physical - Physical exam Narrative exam: Patient is intubated and on mechanical ventilation. The patient is obese. Vital signs as documented. Head exam is unremarkable. No scleral icterus . Neck is without jugular venous distension, thyromegaly, or carotid bruits. Lungs are clear to auscultation. Cardiac exam reveals regular rate and Rhythm. First and second heart sounds normal. No murmurs, rubs or gallops. Abdominal exam reveals normal bowel sounds, no masses, no organomegaly and no aortic enlargement. Extremities are nonedematous and both femoral and pedal pulses are normal. MANAGER PACKAGING: Open his eyes. Didn't follow commands. - Constitutional Vitals: Temp Pulse Resp BP Pulse Ox 98.5 F 84 20 139/92 100 10/12/18 04:00 10/12/18 14:13 10/12/18 14:13 10/12/18 13:27 10/12/18 13:27 General appearance: Present: other (orally intubated, minimal response--right side spontaneous movement) Results - Labs CBC & Chem 7: 10/12/18 03:30 10/12/18 03:30 Labs: Laboratory Last Values WBC 0.9 K/mm3 (4.5-11.0) L* 10/12/18 03:30 RBC 2.78 M/mm3 (3.65-5.03) L 10/12/18 03:30 Hgb 8.3 gm/dl (11.8-15.2) L 10/12/18 03:30 Hct 25.1 % (35.5-45.6) L 10/12/18 03:30 MCV 90 fl (84-94) 10/12/18 03:30 MCH 30 pg (28-32) 10/12/18 03:30 MCHC 33 % (32-34) 10/12/18 03:30 RDW 19.9 % (13.2-15.2) H 10/12/18 03:30 Plt Count 190 K/mm3 (140-440) 10/12/18 03:30 [place] % (Auto) Rn Emergency Room 09/29/18 05:00 Eos % (Auto) Rn Emergency Room 10/12/18 03:30 Baso % (Auto) Rn Emergency Room 10/12/18 03:30 Add Manual Diff Complete 10/12/18 03:30 Total Counted 10 10/12/18 03:30 Seg Neutrophils % Rn Emergency Room 10/10/18 08:35 Seg Neuts % (Manual) 50.0 % (40.0-70.0) 10/12/18 03:30 Band Neutrophils % 0 % 10/12/18 03:30 Lymphocytes % (Manual) 30.0 % (13.4-35.0) 10/12/18 03:30 Reactive Lymphs % (Man) 0 % 10/12/18 03:30 Monocytes % (Manual) 0 % (0.0-7.3) 10/12/18 03:30 Eosinophils % (Manual) 20.0 % (0.0-4.3) H 10/12/18 03:30 Basophils % (Manual) 0 % (0.0-1.8) 10/12/18 03:30 Metamyelocytes % 0 % 10/12/18 03:30 Myelocytes % 0 % 10/12/18 03:30 Promyelocytes % 0 % 10/12/18 03:30 Blast Cells % 0 % 10/12/18 03:30 Nucleated RBC % Not Reportable 10/12/18 03:30 Seg Neutrophils # Man 0.5 K/mm3 (1.8-7.7) L 10/12/18 03:30 Band Neutrophils # 0.0 K/mm3 10/12/18 03:30 Abs Lymphs (Manual) 309 cells/uL (850-3900) L 09/13/18 12:29 Lymphocytes # (Manual) 0.3 K/mm3 (1.2-5.4) L 10/12/18 03:30 Abs React Lymphs (Man) 0.0 K/mm3 10/12/18 03:30 Monocytes # (Manual) 0.0 K/mm3 (0.0-0.8) 10/12/18 03:30 Eosinophils # (Manual) 0.2 K/mm3 (0.0-0.4) 10/12/18 03:30 Basophils # (Manual) 0.0 K/mm3 (0.0-0.1) 10/12/18 03:30 Metamyelocytes # 0.0 K/mm3 10/12/18 03:30 Myelocytes # 0.0 K/mm3 10/12/18 03:30 Promyelocytes # 0.0 K/mm3 10/12/18 03:30 Blast Cells # 0.0 K/mm3 10/12/18 03:30 WBC Morphology Not Reportable 10/12/18 03:30 Hypersegmented Neuts Not Reportable 10/12/18 03:30 Hyposegmented Neuts Not Reportable 10/12/18 03:30 Hypogranular Neuts Not Reportable 10/12/18 03:30 Smudge Cells Not Reportable 10/12/18 03:30 Toxic Granulation Not Reportable 10/12/18 03:30 Toxic Vacuolation Not Reportable 10/12/18 03:30 Dohle Bodies Not Reportable 10/12/18 03:30 Pelger-Huet Anomaly Not Reportable 10/12/18 03:30 Giovanna Rods Not Reportable 10/12/18 03:30 Platelet Estimate Appears normal 10/12/18 03:30 Clumped Platelets Not Reportable 10/12/18 03:30 Plt Clumps, EDTA Not Reportable 10/12/18 03:30 Large Platelets Few 10/12/18 03:30 Giant Platelets Not Reportable 10/12/18 03:30 Platelet Satelliting Not Reportable 10/12/18 03:30 Plt Morphology Comment Not Reportable 10/12/18 03:30 RBC Morphology Not Reportable 10/12/18 03:30 Dimorphic RBCs Not Reportable 10/12/18 03:30 Polychromasia Not Reportable 10/12/18 03:30 Hypochromasia Not Reportable 10/12/18 03:30 Poikilocytosis Not Reportable 10/12/18 03:30 Anisocytosis 2+ 10/12/18 03:30 Microcytosis 1+ 10/12/18 03:30 Macrocytosis Not Reportable 10/12/18 03:30 Spherocytes Not Reportable 10/12/18 03:30 Pappenheimer Bodies Not Reportable 10/12/18 03:30 Sickle Cells Not Reportable 10/12/18 03:30 Target Cells Few 10/12/18 03:30 Tear Drop Cells Few 10/12/18 03:30 Ovalocytes 2+ 10/12/18 03:30 Stomatocytes 1+ 09/29/18 05:00 Helmet Cells Few 10/12/18 03:30 [place] Bodies Not Reportable 10/12/18 03:30 [place] Rings Not Reportable 10/12/18 03:30 Dioni Cells Not Reportable 10/12/18 03:30 Bite Cells Not Reportable 10/12/18 03:30 Crenated Cell Not Reportable 10/12/18 03:30 Elliptocytes 1+ 10/12/18 03:30 Acanthocytes (Spur) Not Reportable 10/12/18 03:30 Rouleaux Not Reportable 10/12/18 03:30 Hemoglobin C Crystals Not Reportable 10/12/18 03:30 Schistocytes Not Reportable 10/12/18 03:30 Malaria parasites Not Reportable 10/12/18 03:30 Kieran Bodies Not Reportable 10/12/18 03:30 Hem Pathologist Commnt No 10/12/18 03:30 PT 16.0 Sec. (12.2-14.9) H 10/10/18 08:09 INR 1.20 (0.87-1.13) H 10/10/18 08:09 APTT 40.9 Sec. (24.2-36.6) H 09/21/18 15:00 Heparin Anti-Xa Level 0.35 U.I./ml (0.3-0.7) 10/05/18 10:19 POC ABG pH 7.336 (7.35-7.45) L 10/12/18 13:30 POC ABG pCO2 31.5 (35-45) L 10/12/18 13:30 POC ABG pO2 122 (80-105) H 10/12/18 13:30 POC ABG HCO3 16.8 10/12/18 13:30 POC ABG Total CO2 18 10/12/18 13:30 POC ABG O2 Sat 99 10/12/18 13:30 POC ABG Base Excess -9 10/12/18 13:30 FiO2 25 % 10/12/18 13:30 Sodium 141 mmol/L (137-145) 10/12/18 03:30 Potassium 4.3 mmol/L (3.6-5.0) 10/12/18 03:30 Chloride 102.9 mmol/L (98-107) 10/12/18 03:30 Carbon Dioxide 18 mmol/L (22-30) L 10/12/18 03:30 Anion Gap 24 mmol/L 10/12/18 03:30 BUN 111 mg/dL (9-20) H 10/12/18 03:30 Creatinine 7.3 mg/dL (0.8-1.5) H 10/12/18 03:30 Estimated GFR 11 ml/min 10/12/18 03:30 BUN/Creatinine Ratio 15 % 10/12/18 03:30 Glucose 93 mg/dL (75-100) 10/12/18 03:30 POC Glucose 88 (70-105) 10/12/18 12:20 Lactic Acid 0.90 mmol/L (0.7-2.0) 09/11/18 20:17 Calcium 7.9 mg/dL (8.4-10.2) L 10/12/18 03:30 Phosphorus 3.10 mg/dL (2.5-4.5) D 09/27/18 04:11 Magnesium 1.40 mg/dL (1.7-2.3) L 10/03/18 13:23 Iron 35 ug/dL (49-181) L 10/06/18 09:40 TIBC 157 mcg/dL (250-450) L 10/06/18 09:40 Ferritin 1126.0 ng/mL (13.0-400.0) H 10/06/18 09:40 Total Bilirubin 0.30 mg/dL (0.1-1.2) 10/07/18 04:20 Direct Bilirubin < 0.2 mg/dL (0-0.2) 09/13/18 07:31 AST 30 units/L (5-40) 10/07/18 04:20 ALT 25 units/L (7-56) 10/07/18 04:20 Alkaline Phosphatase 57 units/L (35-129) 10/07/18 04:20 Ammonia 27.0 umol/L (25-60) 10/03/18 13:23 Total Creatine Kinase 113 units/L (55-170) 10/11/18 05:20 CK-MB (CK-2) 2.6 ng/mL (0.0-4.0) 10/11/18 05:20 CK-MB (CK-2) Rel Index 0.5 (0-4) 09/21/18 04:25 NT-Pro-B Natriuret Pep 145.9 pg/mL (0-450) 09/18/18 16:07 Total Protein 5.5 g/dL (6.3-8.2) L 10/07/18 04:20 Albumin 2.2 g/dL (3.9-5) L 10/07/18 04:20 Albumin/Globulin Ratio 0.7 % 10/07/18 04:20 Vitamin B12 934.5 pg/mL (211-911) H 09/16/18 11:41 Folate 6.71 ng/mL (7.3-26.0) L 10/06/18 09:40 TSH 5.190 mlU/mL (0.270-4.200) H 09/18/18 12:46 Free T4 0.75 ng/dL (0.76-1.46) L 09/18/18 12:46 Urine Color Yellow (Yellow) 10/11/18 05:40 Urine Turbidity Slightly-cloudy (Clear) 10/11/18 05:40 Urine pH 5.0 (5.0-7.0) 10/11/18 05:40 Ur Specific [place] 1.012 (1.003-1.030) 10/11/18 05:40 Urine Protein 30 mg/dl mg/dL (Negative) 10/11/18 05:40 Urine Glucose (UA) Neg mg/dL (Negative) 10/11/18 05:40 Urine Ketones Neg mg/dL (Negative) 10/11/18 05:40 Urine Blood Mod (Negative) 10/11/18 05:40 Urine Nitrite Neg (Negative) 10/11/18 05:40 Urine Bilirubin Neg (Negative) 10/11/18 05:40 Urine Urobilinogen < 2.0 mg/dL (<2.0) 10/11/18 05:40 Ur Leukocyte Esterase Neg (Negative) 10/11/18 05:40 Urine WBC (Auto) 8.0 /HPF (0.0-6.0) H 10/11/18 05:40 Urine RBC (Auto) 45.0 /HPF (0.0-6.0) 10/11/18 05:40 U Epithel Cells (Auto) 2.0 /HPF (0-13.0) 10/11/18 05:40 Urine Bacteria (Auto) 1+ /HPF (Negative) 10/11/18 05:40 Urine Mucus Few /HPF 10/11/18 05:40 Urine Creatinine 57.5 mg/dL (0.1-20.0) H 10/11/18 05:40 Protein/Creatinin Ratio 0.77 10/11/18 05:40 Urine Sodium 70 mmol/L 10/11/18 05:40 Urine Chloride 35.1 mmolL (110-250) L 10/11/18 05:40 Urine Total Protein 44 mg/dL (5-11.8) H 10/11/18 05:40 CSF Appearance Bloody 10/10/18 Unknown CSF Color Red 10/10/18 Unknown CSF WBC 10 /mm3 (1-10) 10/10/18 Unknown CSF RBC 39506 /mm3 (0-0) 10/10/18 Unknown CSF Seg Neutrophils 14.0 % (0-6) 10/10/18 Unknown CSF Lymphocytes % 44.0 % (40-80) 10/10/18 Unknown CSF Reactive Lymphs 0 % 10/10/18 Unknown CSF Monocytes % 38.0 % (15-45) 10/10/18 Unknown CSF Eosinophils % 4.0 % 10/10/18 Unknown CSF Basophils 0 % 10/10/18 Unknown CSF Pathologist Review C 10/10/18 Unknown CSF Glucose 47 mg/dL 10/10/18 Unknown CSF Total Protein 84 mg/dL 10/10/18 Unknown CSF VDRL Reactive 1:4 (Nonreactive) H 09/19/18 15:00 Vancomycin Trough 14.3 ug/mL (5.0-20.0) 09/25/18 14:45 Random Vancomycin 10.7 ug/mL (0-40.0) 10/12/18 03:30 Urine Opiates Screen Presumptive negative 09/17/18 15:52 Urine Methadone Screen Presumptive negative 09/17/18 15:52 Ur Barbiturates Screen Presumptive negative 09/17/18 15:52 Ur Phencyclidine Scrn Presumptive negative 09/17/18 15:52 Ur Amphetamines Screen Presumptive negative 09/17/18 15:52 U Benzodiazepines Scrn Presumptive negative 09/17/18 15:52 Urine Cocaine Screen Presumptive negative 09/17/18 15:52 U Marijuana (THC) Screen Presumptive negative 09/17/18 15:52 Drugs of Abuse Note Disclamer 09/17/18 15:52 Lymph Enumerat CD4/CD8 0.01 (0.86-5.00) L 09/13/18 12:29 % CD3 Cells 71 % (57-85) 09/13/18 12:29 Absolute CD3 Count 220 cells/uL (840-3060) L 09/13/18 12:29 % CD4 Cells 1 % (30-61) L 09/13/18 12:29 Absolute CD4 Count 4 cells/uL (490-1740) L 09/13/18 12:29 % CD8 Cells 70 % (12-42) H 09/13/18 12:29 Absolute CD8 Count 216 cells/uL (180-1170) 09/13/18 12:29 % CD19 Cells 17 % (6-29) 09/13/18 12:29 Absolute CD19 Count 54 cells/uL (110-660) L 09/13/18 12:29 RPR Titer 1:16 09/13/18 12:29 RPR Reactive (Nonreactive) 09/13/18 12:29 T.pallidum Ab (FTA-ABS) Reactive (Nonreactive) H 09/14/18 16:34 C. difficile Toxin A&B Negative (Negative) 09/12/18 05:30 CMV DNA PCR log copywriter/mL See scanned results 10/03/18 06:12 Hepatitis A IgM Ab Non-reactive (NonReactive) 09/13/18 12:29 Hep Bs Antigen Non-reactive (Negative) 09/13/18 12:29 Hep B Core IgM Ab Non-reactive (NonReactive) 09/13/18 12:29 Hepatitis C Antibody Non-reactive (NonReactive) 09/13/18 12:29 HIV-1 Antibody See scanned result 09/11/18 19:14 HIV-1 RNA PCR copies/ml 64482 Copies/mL H 09/13/18 12:29 HIV-1 RNA (PCR) log 4.71 Log cps/mL H 09/13/18 12:29 HIV-2 Ab (Immunoblot) See scanned result 09/11/18 19:14 HIV 1&2 Antibody Rapid Reactive (Non React) 09/11/18 19:14 HIV P24 Antigen Non react (Non React) 09/11/18 19:14 Influenza A (Rapid) Negative (Negative) 09/13/18 16:05 Influenza A (RT-PCR) Negative (Negative) 09/13/18 16:05 Influenza B (Rapid) Negative (Negative) 09/13/18 16:05 Influenza B (RT-PCR) Negative (Negative) 09/13/18 16:05 Toxoplasma IgG Ab <7.20 IU/mL (<7.20) 09/16/18 12:09 Miscellaneous Test see below 09/21/18 03:55 Nutrition/Malnutrition Assess - Dietary Evaluation Nutrition/Malnutrition Findings: Nutrition Notes Start: 09/12/18 17: 45 Freq: Status: Active Protocol: Document 10/07/18 11:44 CP (Rec: 10/07/18 11:51 [place] [facility] [id number] Co-Sign 10/07/18 11:44 LP Nutrition Notes Initial or Follow up Reassessment Current Diagnosis Acute Kidney Injury Sepsis Respiratory Failure Other Pertinent Diagnosis HIV, bilat pneu, gastroenteritis, encephalopathy Current Diet TF- Vital High Protein at 70ml /hr Labs/Tests Cr: 0.7 PRO: 5.5 Pertinent Medications Reviewed Height 6 ft Weight 118 kg [place] Body Weight (kg) 80.90 BMI 35.2 Subjective/Other Information Observed TF running at goal ( 70 mL). Per nurse, water flush of 150 mL was administered 08 :00 today. Percent of energy/protein needs met: 93%/91% Burn Absent Trauma Absent #2 Nutrition Diagnosis Inadequate oral intake Diagnosis Progress(for reassessment Continues documentation) #1 Nutrition Diagnosis Malnutrition Diagnosis Progress(for reassessment Continues documentation) Is patient on ventilator? Yes Is Patient Ambulatory and/or Out of Bed No REE-([place]-confined to bed) 2597.352 Kcal/Kg value to use for calculation 15 Approximate Energy Requirements Using 1770 kcal/Kg Additional Notes Pro needs 2g/kg IBW: 162g/day Fluid needs 1ml/kcal Nutrition Intervention Change Diet Order: Continue TF Nutrition Support: Vital HP at 70ml/hr Kcal 1,680 Protein (gm) 147 Fluid (mL) 1,404 Goal #1 Continue to meet at least 80% of PRO and kcal needs with TF. Follow-Up By: 10/14/18 Additional Comments F/U: Stable TF/TF tolerance
[2018-10-12] MEDS: TRANSDERM-SCOP TD SCH (17:16)
--- NOTE | 2018-10-12 21:01 | Ultrasound Report ---
FINAL REPORT PROCEDURE: US RENAL BILAT TECHNIQUE: Real-time sonography in multiple planes of the kidneys, ureters and urinary bladder was p erformed with image documentation. CPT 57627 HISTORY: MAL COMPARISON: No prior studies are available for comparison. FINDINGS: RIGHT kidney: There is increased parenchymal echotexture without calculi. There is mild prominence of the collecting system which is most likely secondary to distended urinary bladder. Length: 13.6 x 7. 0 x 6.1 cm. LEFT kidney: There is increased parenchymal echotexture without calculi or hydronephrosis. There is m ild prominence of the collecting system which is most likely secondary to distended urinary bladder l ength: 13.2 x 6.8 x 7.1cm. Bladder: Grossly distended with normal outlines. 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
[2018-10-12] MEDS: KEPPRA PO SCH (21:14)
[2018-10-13] MEDS: ROBINUL PO SCH ×4 (01:55→18:33)
[2018-10-13] MEDS: MEPRON PO SCH ×3 (01:55→23:36)
[2018-10-13] MEDS: PROVENTIL IH SCH ×4 (02:34→19:47)
[2018-10-13 04:52] LABS: Hematocrit 24.3 % (35.5-45.6); Hemoglobin 8.1 gm/dl (11.8-15.2); Mean Corpuscular HGB Conc 33 % (32-34); Mean Corpuscular Volume 91 fl (84-94); Platelet Count 193 K/mm3 (140-440); Red Blood Count 2.68 M/mm3 (3.65-5.03); Red Cell Distribution Width 19.7 % (13.2-15.2)
[2018-10-13 05:03] LABS: Calcium 7.8 mg/dL (8.4-10.2)
[2018-10-13 05:31] LABS: Anisocytosis 2+; Band Neutrophils # (Manual) 0.1 K/mm3; Basophils % (Manual) 16.7 % (0.0-1.8); Eosinophils % (Manual) 16.7 % (0.0-4.3); Giant Platelets Few; Large Platelets 1+; Monocytes % (Manual) 3.3 % (0.0-7.3); Ovalocytes 2+; Total Cells Counted 30
[2018-10-13 05:32] LABS: Helmet Cells Few; Hypochromasia Few; Schistocytes Rare
[2018-10-13] MEDS: SYNTHROID PO SCH (05:33)
[2018-10-13] MEDS: HEPARIN SUB-Q SCH ×3 (05:33→23:34)
--- NOTE | 2018-10-13 07:09 | Progress Note ---
Assessment and Plan - Patient Problems (1) Acute kidney failure with tubular necrosis Current Visit: Yes Status: Acute Plan to address problem: Worsening renal function noted at this time with persistent fevers over the past 48 hours which can be a risk factor for MAL/pre-renal injury. Increased IVF hydration with NS to 125 cc/hr. concern for worsening acute tubular necrosis. Please ensure that all antibiotics are dosed appropriately for renal function. Other concern is that the change in renal function may be a consequence of extensive exposure to antibiotics (karey penicillin) as an inpatient and possible manifestations of AIN. Please ensure that all antibiotics are dosed appropriately for decreased renal clearance. There are no acute indications for renal replacement therapy at present. Continue current supportive care measures. Renal US noted without any acute abnormalities, kidneys are enlarged, no evidence of hydronephrosis. Based on evidence of microscopic hematuria and proteinuria complement levels and ANCA vasculitis studies were ordered, are pending at this time. Response noted with lasix as urine output markedly increased. No acute indications for initiation of HD today. Will give another dose of lasix 40 mg IV today. (2) Hyperkalemia Current Visit: Yes Status: Resolved Plan to address problem: In the setting of worsening renal function/MAL. Improved with IV fluid hydration. (3) Acute respiratory failure with hypoxia Current Visit: Yes Status: Acute Plan to address problem: Remains intubated. 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 Will continue to monitor. He is awake this morning and seems to be less lethargic but still not following commands at this time. (5) Pancytopenia Current Visit: Yes Status: Acute Plan to address problem: In the setting of CMV viremia, HIV/AIDS. Will defer to primary team. (6) HIV (human immunodeficiency virus infection) Current Visit: Yes Status: Chronic Plan to address problem: Management per ID recommendations. (7) Hypernatremia Current Visit: Yes Status: Acute Plan to address problem: Hypernatremia has resolved at this time. Subjective Date of service: 10/13/18 Principal diagnosis: Severe sepsis; Ac hypoxemic Resp failure; [place]. Pneumonia; Ac encephalopathy Interval history: Produced 2200 cc of urine yesterday, and 500 cc urine overnight per nursing staff. Labs noted. Given one dose of lasix 40 mg IV yesterday. Objective - Vital Signs Vital signs: Vital Signs - 12hr 10/12/18 10/12/18 10/12/18 19:35 19:45 20:00 Temperature 97.9 F Pulse Rate 85 85 Pulse Rate [ 85 88 Throughout] Respiratory 26 H 23 Rate Respiratory 28 H 24 Rate [ Throughout] Blood Pressure 122/78 O2 Sat by Pulse 100 99 Oximetry 10/12/18 10/12/18 10/12/18 21:00 21:15 22:00 Temperature Pulse Rate 87 87 91 H Pulse Rate [ Throughout] Respiratory 19 13 Rate Respiratory Rate [ Throughout] Blood Pressure 120/75 120/75 118/75 O2 Sat by Pulse 99 Oximetry 10/12/18 10/12/18 10/12/18 23:00 23:49 23:59 Temperature 98.0 F Pulse Rate 88 89 Pulse Rate [ Throughout] Respiratory 27 H Rate Respiratory Rate [ Throughout] Blood Pressure 126/82 O2 Sat by Pulse 100 100 Oximetry 10/13/18 10/13/18 10/13/18 00:00 00:01 01:00 Temperature Pulse Rate 86 86 86 Pulse Rate [ Throughout] Respiratory 18 20 23 Rate Respiratory Rate [ Throughout] Blood Pressure 119/78 119/78 122/79 O2 Sat by Pulse 99 100 100 Oximetry 10/13/18 10/13/18 10/13/18 02:00 02:30 02:40 Temperature Pulse Rate 86 Pulse Rate [ 80 85 Throughout] Respiratory 22 Rate Respiratory 18 20 Rate [ Throughout] Blood Pressure 121/75 O2 Sat by Pulse 100 Oximetry 10/13/18 10/13/18 10/13/18 03:00 03:45 04:00 Temperature 98.7 F Pulse Rate 90 88 92 H Pulse Rate [ Throughout] Respiratory 23 21 Rate Respiratory Rate [ Throughout] Blood Pressure 124/79 127/77 O2 Sat by Pulse 100 100 100 Oximetry 10/13/18 10/13/18 05:00 06:00 Temperature Pulse Rate 93 H 91 H Pulse Rate [ Throughout] Respiratory 25 H 18 Rate Respiratory Rate [ Throughout] Blood Pressure 121/78 122/76 O2 Sat by Pulse 99 Oximetry - General Appearance General appearance: intubated EENT: ATNC, PERRL Neck: no JVD, no thyromegaly Respiratory: Present: Clear to Ascultation Cardiology: regular, S1S2 Gastrointestinal: normal, normoactive bowel sounds Integumentary: warm and dry Neurologic: other (awakw, visually tracks, less lethargic, not following commands. ) - Lab 10/13/18 04:05 10/13/18 04:00 Most recent lab results Calcium 7.8 mg/dL (8.4-10.2) L 10/13/18 04:00 Phosphorus 3.10 mg/dL (2.5-4.5) D 09/27/18 04:11 Magnesium 1.40 mg/dL (1.7-2.3) L 10/03/18 13:23 Urine Creatinine 57.5 mg/dL (0.1-20.0) H 10/11/18 05:40 Urine Sodium 70 mmol/L 10/11/18 05:40 Urine Total Protein 44 mg/dL (5-11.8) H 10/11/18 05:40 Medications & Allergies - Medications Allergies/Adverse Reactions: Allergies No Known Allergies Allergy (Unverified 09/11/18 17:50) Home Medications: Home Medications Medication Instructions Recorded Confirmed Last Taken Type No Known Home Medications [No 10/02/18 10/02/18 Unknown History Reported Home Medications] Active Medications: Generic Name Dose Route Start Last Admin Trade Name Freq PRN Reason Stop Dose Admin Acetaminophen 650 mg 09/11/18 19:30 10/09/18 16:32 Tylenol PO 650 mg Q4H PRN Administration Pain MILD(1-3)/Fever >100.5/RIVERA Acetaminophen 650 mg 09/21/18 07:39 10/07/18 21:15 Tylenol [place] 650 mg Q4H PRN Administration Fever >101 Albuterol 2.5 mg 09/11/18 19:30 09/16/18 06:09 Proventil IH 2.5 mg Q4HRT PRN Administration Shortness Of Breath Albuterol 2.5 mg 09/20/18 20:00 10/13/18 02:34 Proventil IH 2.5 mg Q6HRT GIA Administration Amiodarone HCl 200 mg 09/27/18 15:00 10/12/18 21:15 Cordarone PO 200 mg BID GIA Administration Lipase/Protease/Amylase 1 each 09/30/18 12:01 Abril Gibbs 10,500 Unit FEEDTUBE PRN PRN For Clogged Feeding Tube Atovaquone 750 mg 09/21/18 10:00 10/13/18 01:55 Mepron PO 750 mg BID GIA Administration Azithromycin 1,200 mg 09/25/18 10:00 10/09/18 10:44 Zithromax PO 1,200 mg Walters GIA Administration Emtricitabine 200 mg 10/13/18 10:00 Emtriva PO Q96H GIA Famotidine 20 mg 10/10/18 10:00 10/12/18 10:52 Pepcid PO 20 mg DAILY GIA Administration Fluconazole 200 mg 10/05/18 12:00 10/12/18 10:53 Diflucan PO 200 mg QDAY GIA Administration Folic Acid 1 mg 10/07/18 10:00 10/12/18 10:52 Folvite PO 1 mg QDAY GIA Administration Glycopyrrolate 2 mg 10/07/18 18:00 10/13/18 05:33 Robinul PO 2 mg Q6HR GIA Administration Heparin Sodium (Porcine) 5,000 unit 10/05/18 14:00 10/13/18 05:33 Heparin SUB-Q 5,000 unit Q8HR GIA Administration Hydrophilic Ointment 1 applic 09/21/18 01:46 09/22/18 03:46 Vaseline Lip Therapy TP 1 applic Q2HR PRN Administration Dry Lips Cefepime HCl 2 gm in 100 mls @ 200 mls/hr 10/10/18 11:30 10/12/18 10:53 Maxipime/Ns 2 Gm/100 Ml IV 200 mls/hr Q24HR GIA Administration Protocol Sodium Chloride 1,000 mls @ 125 mls/hr 10/10/18 16:00 10/12/18 17:16 Nacl 0.9% 1000 Ml IV 125 mls/hr DIRECT GIA Administration Ganciclovir Sodium 150 mg/ 250 mls @ 100 mls/hr 10/12/18 10:00 10/12/18 11:15 Sodium Chloride IV 100 mls/hr MoWeFr GIA Administration Levetiracetam 750 mg 10/12/18 22:00 10/12/18 21:14 Keppra PO 750 mg BID GIA Administration Levothyroxine Sodium 25 mcg 09/19/18 06:00 10/13/18 05:33 Synthroid PO 25 mcg DAILY@0600 GIA Administration Metoprolol Tartrate 12.5 mg 10/10/18 13:00 10/12/18 21:15 Lopressor PO 12.5 mg BID GIA Administration Multi-Ingred Cream/Lotion/Oil/Oint 1 applic 09/21/18 01:46 Artificial Tears Ophth Oint OU Q4HR PRN Dry Eye(s) Ondansetron HCl 4 mg 09/11/18 19:30 Zofran IV Q8H PRN Nausea And Vomiting Scopolamine 1 each 09/18/18 18:00 10/12/18 17:16 Transderm-Scop TD 1 each Q3D GIA Administration Simple Syrup 15 ml 09/30/18 12:01 10/07/18 06:18 Simple Syrup FEEDTUBE 15 ml PRN PRN Administration Hypoglycemia Simple Syrup 30 ml 09/30/18 12:01 Simple Syrup FEEDTUBE PRN PRN Hypoglycemia Sodium Bicarbonate 325 mg 09/30/18 12:01 Sodium Bicarbonate FEEDTUBE PRN PRN For Clogged Feeding Tube Sodium Chloride 10 ml 09/11/18 22:00 10/12/18 21:21 Sodium Chloride Flush Syringe 10 Ml IV 10 ml BID GIA Administration Sodium Chloride 10 ml 09/11/18 19:30 Sodium Chloride Flush Syringe 10 Ml IV PRN PRN LINE FLUSH Tenofovir Disoproxil Fumarate 300 mg 10/13/18 10:00 Viread PO Q96H GIA
[2018-10-13] MEDS ORDERED: LASIX IV ONE (07:10)
[2018-10-13] MEDS ORDERED: SOLU-Medrol 500 MG in NACL 0.9% 100 ML IV ONE (07:12)
--- NOTE | 2018-10-13 07:24 | Hem/Onc Progress Note ---
Assessment and Plan 1. Leukopenia. ANC is 0.5. Neutropenic precaution is practical. 2. Anemia. We will investigate. 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 HAART has been started. At this time, there is no fever. 3. Human immunodeficiency virus, on HAART. 4. 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 5. Intubated. 6. On antibiotics for pneumonia. 7. History of ____ that is improved. 8. Looks at you, but does not communicate. 9. History of oral candidiasis. 10. Mention of giardiasis. 11. Encephalopathy. 12. RVR with atrial fibrillation. I will follow the patient during inpatient stay. At this time, his cytopenia is likely secondary to the HIV or the CMV. I will discuss with ID team to see if G-CSF support is an option. 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 worse - d/w RN reg same - I had spoken to hospitalist - dr reyna - yesterday about this 10/11 - s/p GCSF - not much change in WBC or overall performance - as per RN - plan for trach and PEG director business intelligence high - nephrology 10/12 - trach - peg not done - as family deciding the GCSF - did not change the WBC 10/13 - wbc 1 - opens eye - non communicative - Patient Problems (1) Neutropenia Current Visit: Yes Status: Acute Subjective Date of service: 10/13/18 Principal diagnosis: low wbc Interval history: on vent Objective - Constitutional Vitals: Last Vital Signs Temp 98.7 F 10/13/18 04:00 Pulse 91 H 10/13/18 06:00 Resp 18 10/13/18 06:00 BP 122/76 10/13/18 06:00 Pulse Ox 99 10/13/18 05:00 General appearance: no acute distress Performance status: 4-completely disabled - Respiratory Respiratory effort: Positive: other (on vent) Respiratory: bilateral: diminished - Cardiovascular Heart Sounds: Present: S1 & S2 Extremity abnormal: edema - Gastrointestinal General gastrointestinal: Present: soft, non-tender Rectal Exam: deferred - Genitourinary Male genitourinary: Present: deferred - Integumentary Integumentary: warm - Neurologic Neurologic: other (non verbal) - Labs Lab Results: Laboratory Results - last 24 hr 10/11/18 10/12/18 10/12/18 16:23 12:20 13:30 WBC RBC Hgb Hct MCV MCH MCHC RDW Plt Count Eos % (Auto) Baso % (Auto) Add Manual Diff Total Counted Seg Neuts % (Manual) Band Neutrophils % Lymphocytes % (Manual) Reactive Lymphs % (Man) Monocytes % (Manual) Eosinophils % (Manual) Basophils % (Manual) Metamyelocytes % Myelocytes % Promyelocytes % Blast Cells % Nucleated RBC % Seg Neutrophils # Man Band Neutrophils # Lymphocytes # (Manual) Abs React Lymphs (Man) Monocytes # (Manual) Eosinophils # (Manual) Basophils # (Manual) Metamyelocytes # Myelocytes # Promyelocytes # Blast Cells # WBC Morphology Hypersegmented Neuts Hyposegmented Neuts Hypogranular Neuts Smudge Cells Toxic Granulation Toxic Vacuolation Dohle Bodies Pelger-Huet Anomaly Giovanna Rods Platelet Estimate Clumped Platelets Plt Clumps, EDTA Large Platelets Giant Platelets Platelet Satelliting Plt Morphology Comment RBC Morphology Dimorphic RBCs Polychromasia Hypochromasia Poikilocytosis Anisocytosis Microcytosis Macrocytosis Spherocytes Pappenheimer Bodies Sickle Cells Target Cells Tear Drop Cells Ovalocytes Helmet Cells [place] Bodies [place] Rings Dioni Cells Bite Cells Crenated Cell Elliptocytes Acanthocytes (Spur) Rouleaux Hemoglobin C Crystals Schistocytes Malaria parasites Kieran Bodies Hem Pathologist Commnt POC ABG pH TNR 7.336 L POC ABG pCO2 TNR 31.5 L POC ABG pO2 TNR 122 H POC ABG HCO3 TNR 16.8 POC ABG Total CO2 TNR 18 POC ABG O2 Sat TNR 99 POC ABG Base Excess TNR -9 FiO2 TNR 25 Sodium Potassium Chloride Carbon Dioxide Anion Gap BUN Creatinine Estimated GFR BUN/Creatinine Ratio Glucose POC Glucose 88 Calcium 10/12/18 10/12/18 10/13/18 19:51 23:31 04:00 WBC RBC Hgb Hct MCV MCH MCHC RDW Plt Count Eos % (Auto) Baso % (Auto) Add Manual Diff Total Counted Seg Neuts % (Manual) Band Neutrophils % Lymphocytes % (Manual) Reactive Lymphs % (Man) Monocytes % (Manual) Eosinophils % (Manual) Basophils % (Manual) Metamyelocytes % Myelocytes % Promyelocytes % Blast Cells % Nucleated RBC % Seg Neutrophils # Man Band Neutrophils # Lymphocytes # (Manual) Abs React Lymphs (Man) Monocytes # (Manual) Eosinophils # (Manual) Basophils # (Manual) Metamyelocytes # Myelocytes # Promyelocytes # Blast Cells # WBC Morphology Hypersegmented Neuts Hyposegmented Neuts Hypogranular Neuts Smudge Cells Toxic Granulation Toxic Vacuolation Dohle Bodies Pelger-Huet Anomaly Giovanna Rods Platelet Estimate Clumped Platelets Plt Clumps, EDTA Large Platelets Giant Platelets Platelet Satelliting Plt Morphology Comment RBC Morphology Dimorphic RBCs Polychromasia Hypochromasia Poikilocytosis Anisocytosis Microcytosis Macrocytosis Spherocytes Pappenheimer Bodies Sickle Cells Target Cells Tear Drop Cells Ovalocytes Helmet Cells [place] Bodies [place] Rings Dioni Cells Bite Cells Crenated Cell Elliptocytes Acanthocytes (Spur) Rouleaux Hemoglobin C Crystals Schistocytes Malaria parasites Kieran Bodies Hem Pathologist Commnt POC ABG pH POC ABG pCO2 POC ABG pO2 POC ABG HCO3 POC ABG Total CO2 POC ABG O2 Sat POC ABG Base Excess FiO2 Sodium 144 Potassium 3.9 Chloride 105.6 Carbon Dioxide 17 L Anion Gap 25 BUN 118 H Creatinine 7.8 H Estimated GFR 10 BUN/Creatinine Ratio 15 Glucose 102 H POC Glucose 77 88 Calcium 7.8 L 10/13/18 10/13/18 04:05 05:20 WBC 1.0 L* RBC 2.68 L Hgb 8.1 L Hct 24.3 L MCV 91 MCH 30 MCHC 33 RDW 19.7 H Plt Count 193 Eos % (Auto) Clay Structure Builder And Servicer Baso % (Auto) Clay [employer] Builder [employer] Servicer Add Manual Diff Complete Total Counted 30 Seg Neuts % (Manual) 36.7 L Band Neutrophils % 10.0 Lymphocytes % (Manual) 16.7 Reactive Lymphs % (Man) 0 Monocytes % (Manual) 3.3 Eosinophils % (Manual) 16.7 H Basophils % (Manual) 16.7 H Metamyelocytes % 0 Myelocytes % 0 Promyelocytes % 0 Blast Cells % 0 Nucleated RBC % Not Reportable Seg Neutrophils # Man 0.4 L Band Neutrophils # 0.1 Lymphocytes # (Manual) 0.2 L Abs React Lymphs (Man) 0.0 Monocytes # (Manual) 0.0 Eosinophils # (Manual) 0.2 Basophils # (Manual) 0.2 H Metamyelocytes # 0.0 Myelocytes # 0.0 Promyelocytes # 0.0 Blast Cells # 0.0 WBC Morphology Not Reportable Hypersegmented Neuts Not Reportable Hyposegmented Neuts Not Reportable Hypogranular Neuts Not Reportable Smudge Cells Not Reportable Toxic Granulation Not Reportable Toxic Vacuolation Not Reportable Dohle Bodies Not Reportable Pelger-Huet Anomaly Not Reportable Giovanna Rods Not Reportable Platelet Estimate Appears normal Clumped Platelets Not Reportable Plt Clumps, EDTA Not Reportable Large Platelets 1+ Giant Platelets Few Platelet Satelliting Not Reportable Plt Morphology Comment Not Reportable RBC Morphology Not Reportable Dimorphic RBCs Not Reportable Polychromasia Not Reportable Hypochromasia Few Poikilocytosis Not Reportable Anisocytosis 2+ Microcytosis 1+ Macrocytosis Not Reportable Spherocytes Not Reportable Pappenheimer Bodies Not Reportable Sickle Cells Not Reportable Target Cells Not Reportable Tear Drop Cells Not Reportable Ovalocytes 2+ Helmet Cells Few [place] Bodies Not Reportable [place] Rings Not Reportable Dioni Cells Not Reportable Bite Cells Not Reportable Crenated Cell Not Reportable Elliptocytes 1+ Acanthocytes (Spur) Not Reportable Rouleaux Not Reportable Hemoglobin C Crystals Not Reportable Schistocytes Rare Malaria parasites Not Reportable Kieran Bodies Not Reportable Hem Pathologist Commnt No POC ABG pH POC ABG pCO2 POC ABG pO2 POC ABG HCO3 POC ABG Total CO2 POC ABG O2 Sat POC ABG Base Excess FiO2 Sodium Potassium Chloride Carbon Dioxide Anion Gap BUN Creatinine Estimated GFR BUN/Creatinine Ratio Glucose POC Glucose 93 Calcium Medications & Allergies - Medications Allergies/Adverse Reactions: Allergies No Known Allergies Allergy (Unverified 09/11/18 17:50) Home Medications: Home Medications Medication Instructions Recorded Confirmed Last Taken Type No Known Home Medications [No 10/02/18 10/02/18 Unknown History Reported Home Medications] Active Medications: Generic Name Dose Route Start Last Admin Trade Name Freq PRN Reason Stop Dose Admin Acetaminophen 650 mg 09/11/18 19:30 10/09/18 16:32 Tylenol PO 650 mg Q4H PRN Administration Pain MILD(1-3)/Fever >100.5/RIVERA Acetaminophen 650 mg 09/21/18 07:39 10/07/18 21:15 Tylenol ND 650 mg Q4H PRN Administration Fever >101 Albuterol 2.5 mg 09/11/18 19:30 09/16/18 06:09 Proventil IH 2.5 mg Q4HRT PRN Administration Shortness Of Breath Albuterol 2.5 mg 09/20/18 20:00 10/13/18 02:34 Proventil IH 2.5 mg Q6HRT GIA Administration Amiodarone HCl 200 mg 09/27/18 15:00 10/12/18 21:15 Cordarone PO 200 mg BID GIA Administration Lipase/Protease/Amylase 1 each 09/30/18 12:01 Pancrealen Gibbs 10,500 Unit FEEDTUBE PRN PRN For Clogged Feeding Tube Atovaquone 750 mg 09/21/18 10:00 10/13/18 01:55 Mepron PO 750 mg BID GIA Administration Azithromycin 1,200 mg 09/25/18 10:00 10/09/18 10:44 Zithromax PO 1,200 mg Walters GIA Administration Emtricitabine 200 mg 10/13/18 10:00 Emtriva PO Q96H GIA Famotidine 20 mg 10/10/18 10:00 10/12/18 10:52 Pepcid PO 20 mg DAILY GIA Administration Fluconazole 200 mg 10/05/18 12:00 10/12/18 10:53 Diflucan PO 200 mg QDAY GIA Administration Folic Acid 1 mg 10/07/18 10:00 10/12/18 10:52 Folvite PO 1 mg QDAY GIA Administration Furosemide 60 mg 10/13/18 07:10 Lasix IV 10/13/18 07:11 ONCE ONE Glycopyrrolate 2 mg 10/07/18 18:00 10/13/18 05:33 Robinul PO 2 mg Q6HR GIA Administration Heparin Sodium (Porcine) 5,000 unit 10/05/18 14:00 10/13/18 05:33 Heparin SUB-Q 5,000 unit Q8HR GIA Administration Hydrophilic Ointment 1 applic 09/21/18 01:46 09/22/18 03:46 Vaseline Lip Therapy TP 1 applic Q2HR PRN Administration Dry Lips Cefepime HCl 2 gm in 100 mls @ 200 mls/hr 10/10/18 11:30 10/12/18 10:53 Maxipime/Ns 2 Gm/100 Ml IV 200 mls/hr Q24HR GIA Administration Protocol Sodium Chloride 1,000 mls @ 125 mls/hr 10/10/18 16:00 10/12/18 17:16 Nacl 0.9% 1000 Ml IV 125 mls/hr DIRECT GIA Administration Ganciclovir Sodium 150 mg/ 250 mls @ 100 mls/hr 10/12/18 10:00 10/12/18 11:15 Sodium Chloride IV 100 mls/hr MoWeFr GIA Administration Methylprednisolone Sodium 100 mls @ 200 mls/hr 10/13/18 07:12 Succinate 500 mg/ Sodium IV 10/13/18 07:41 Chloride ONCE ONE Levetiracetam 750 mg 10/12/18 22:00 10/12/18 21:14 Keppra PO 750 mg BID GIA Administration Levothyroxine Sodium 25 mcg 09/19/18 06:00 10/13/18 05:33 Synthroid PO 25 mcg DAILY@0600 GIA Administration Metoprolol Tartrate 12.5 mg 10/10/18 13:00 10/12/18 21:15 Lopressor PO 12.5 mg BID GIA Administration Multi-Ingred Cream/Lotion/Oil/Oint 1 applic 09/21/18 01:46 Artificial Tears Ophth Oint OU Q4HR PRN Dry Eye(s) Ondansetron HCl 4 mg 09/11/18 19:30 Zofran IV Q8H PRN Nausea And Vomiting Scopolamine 1 each 09/18/18 18:00 10/12/18 17:16 Transderm-Scop TD 1 each Q3D GIA Administration Simple Syrup 15 ml 09/30/18 12:01 10/07/18 06:18 Simple Syrup FEEDTUBE 15 ml PRN PRN Administration Hypoglycemia Simple Syrup 30 ml 09/30/18 12:01 Simple Syrup FEEDTUBE PRN PRN Hypoglycemia Sodium Bicarbonate 325 mg 09/30/18 12:01 Sodium Bicarbonate FEEDTUBE PRN PRN For Clogged Feeding Tube Sodium Chloride 10 ml 09/11/18 22:00 10/12/18 21:21 Sodium Chloride Flush Syringe 10 Ml IV 10 ml BID GIA Administration Sodium Chloride 10 ml 09/11/18 19:30 Sodium Chloride Flush Syringe 10 Ml IV PRN PRN LINE FLUSH Tenofovir Disoproxil Fumarate 300 mg 10/13/18 10:00 Viread PO Q96H GIA
--- NOTE | 2018-10-13 07:28 | Progress Note ---
Assessment and Plan Cultures: 09/11/2018 blood culture: no growth 09/13/2018 serum cryptococcus ag neg 09/14/2018 CSF cryptococcus ag neg 09/14/2018 stool Nona 09/15/2018 stool +Giardia ag 09/19/2018 CSF cryptococcus ag neg 09/21/2018 tracheal aspirate culture: Nona albicans 09/23/2018 blood culture: No growth 09/23/2018 Fungal blood culture: no growth thus far 10/09/2018 blood culture: No growth A/P: 33 y/o male with no PMH; admitted on 09/11/2018 due to 4 days-AMS/behavioral changes, nausea, vomiting, diarrhea, weight loss and cough: 1) Low grade fevers: continues since 10/08 NOW resolved x 72h, etiology ? likely IRIS related (ART started on 09/30) versus NGT-associated sinusitis/mastoiditis. shock resolved. Completed 10 days of Ceftriaxone, off since 10/03/2018. On ganciclovir for disseminated CMV. On vanco/cefepime for sinusitis/mastoiditis. 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 WBC remains low could be from CMV v/s ganciclovir. Clinically better - CMV DNA PCR 09/16/2018 is 1,058,978, 6 log - CMV DNA PCR 09/26/2018 is 710K, 5.85 log - CMV DNA PCR 10/03/2018 is 262K, 5.4 log 3) Acute respiratory failure: still on the vent minimal settings, mainly due to mental status issues. PJP DFA negative. CXR stable without pneumonia. 4) Acute encephalopathy: NOT better; possibly from neurosyphilis v/s CMV encephalitis v/s metabolic etiology. Of note, MRI did not show ventriculitis. CSF YAYO virus DNA PCR neg. Toxo IgG negative. He has received 20 days of Pen G IV and Ganciclovir with minimal improvement, still somnolent and nystagmus noted ? neurosyphilis treatement failure ? other etiologies like metabolic, CVA. Discu ssed with neuro Dr Nazario EEG x 2 no epileptic activity - "Up to 4 EEGs over several months may be needed to capture interictal epileptiform activity". - repeat LP 10/10/3018 WBC 10, RBC 22K (traumatic), glu 47, prot 84 from 194, VDRL pending. - Seizures reported on 10/09-10/10 - CT head done showed mild atrophy. No acute intracranial abnormalities. Paranasal sinus disease and new opacification of multiple mastoid air cells on the right and a few on the left suggesting acute mastoiditis. - MRI brain repeat 10/10 significant bilateral mastoiditis, generalized brain atrophy and stable paranasal sinusitis 5) Neurosyphilis: CSF VDRL positive, off Ceftriaxone and back on IV Penicillin completed 21 days 6) Diarrhea: likely due to Giardiasis as Giardia antigen positive in stool, in immunocompromised patient. Completed several days of Flagyl, stopped on 10/03/2018. 7) Oral candidiasis: on fluconazole, will need to continue as prophylaxis till immune reconstitution. 8) A.fib: cardiology following. On Amiodarone. 9) HIV/AIDS: newly diagnosed. Risk factor is MSM behavior. CD4=4. VL=50,700. 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 We started him on Tenofovir, Emtricitabine + Dolutegravir on 09/30/2018, watch closely for IRIS. 10) Neutropenia: likely from HIV/CMV myelosuppression. Also probably worse from ganciclovir. r/o disseminated MAC, thus far cultures negative. 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 12) NGT-associated sinusitis/mastoiditis, NGT changed to OGT. Recs: - Discussed with Dr Jimenes CSF was not sent for HSV as he was positive for neurosyphilis; if clinically not better would consider repeating LP for HSV PCR however he is on ganciclovir which also cover HSV - Renal is considering starting patient on IV Solu-Medrol secondary to progressively worsening renal function, which it is ok from ID stand point, patient on week 2 of ART - Tenofovir, Emtricitabine + Dolutegravir and prophyl axis therapy for PJP/MAC - renal con board - all antibiotics are renally adjusted for CrCl < 10 - completed IV Penicillin G 24 million units daily for 21 days on 10/08/2018 - continue IV Ganciclovir 5 mg/kg 3times a week - renally adjusted again today, continue till CMV PCR is <200 - will repeat CMV DNA PCR on 10/17/2018 - continue atovaquone and azithromycin prophylaxis - continue fluconazole 200 mg daily PO as prophylaxis - continue HAART: Tenofovir, Emtricitabine + Dolutegravir watch closely for IRIS - renally adjusted today - monitor daily CBC, BMP - s/p neupogen 1 dose on 10/05/2018, hematology on board agree with additional Neupogen as needed from ID standpoint Overall prognosis poor/complex case Will follow Alayna Menendez MD Infectious Diseases [employer] [facility] M [phone] O [phone] Subjective Date of service: 10/13/18 Principal diagnosis: Severe sepsis; Ac hypoxemic Resp failure; [place]. Pneumonia; Ac encephalopathy Interval history: Patient remains alert but not following commands, intubated on CPAP, open eyes, no fever for 72h ROS: unable to obtain Objective - Exam Narrative Exam: Constitutional: Intubated alert no follows commands open eyes in NAD Head, Ears, Nose: Normocephalic, atraumatic. External ears, nose normal Eyes: Conjunctivae/corneas clear. No icterus. No ptosis.no nystagmus Neck:no JVD, left anterior neck large hard nodule non tender Oral: ETT, OGT Cardiovascular: tachycardic Respiratory: distant BS GI: Soft, non-tender; bowel sounds normal. No peritoneal signs Musculoskeletal: No pedal edema, no cyanosis. Skin: No rash or abscess. Hem/Lymphatic: No palpable cervical or supraclavicular nodes. No lymphangitis Psych: alert Neurological: alert, moves right hand, does not move left hand PICC line 2/6 - Constitutional Vitals: Vital Signs Temp Pulse Resp BP Pulse Ox 98.7 F 91 H 18 122/76 99 10/13/18 04:00 10/13/18 06:00 10/13/18 06:00 10/13/18 06:00 10/13/18 05:00 Temperature -Last 24 Hours Temperature 98.7 F Temperature 98.0 F Temperature 97.9 F Temperature 97.8 F Temperature 97.5 F Temperature 97.6 F - Labs CBC & Chem 7: 10/13/18 04:05 10/13/18 04:00 Labs: Abnormal lab results 10/12/18 10/13/18 10/13/18 Range/Units 13:30 04:00 04:05 WBC 1.0 L* (4.5-11.0) K/mm3 RBC 2.68 L (3.65-5.03) M/mm3 Hgb 8.1 L (11.8-15.2) gm/dl Hct 24.3 L (35.5-45.6) % RDW 19.7 H (13.2-15.2) % Seg Neuts % (Manual) 36.7 L (40.0-70.0) % Eosinophils % (Manual) 16.7 H (0.0-4.3) % Basophils % (Manual) 16.7 H (0.0-1.8) % Seg Neutrophils # Man 0.4 L (1.8-7.7) K/mm3 Lymphocytes # (Manual) 0.2 L (1.2-5.4) K/mm3 Basophils # (Manual) 0.2 H (0.0-0.1) K/mm3 POC ABG pH 7.336 L (7.35-7.45) POC ABG pCO2 31.5 L (35-45) POC ABG pO2 122 H (80-105) Carbon Dioxide 17 L (22-30) mmol/L BUN 118 H (9-20) mg/dL Creatinine 7.8 H (0.8-1.5) mg/dL Glucose 102 H (75-100) mg/dL Calcium 7.8 L (8.4-10.2) mg/dL
--- NOTE | 2018-10-13 09:51 | Progress Note ---
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 He did not use condom consistently. - CD4=4 - VL=50,700 Elevated LFTs: resolved Neutropenia/thrombocytopenia Hypernatremia -VAP bundle addressed -Lung protective strategies -Antimicrobials per ID, HAART per ID - continue supplemental oxygen to keep sats > 90% - continue bronchodilators with pulmonary - continue daily SBT's, at this time mental status precludes liberation from MVS - monitor for drug-drug interactions - continue enteral nutrition as tolerated - PT/OT/ROM exercises as tolerated - mobility protocol for pressure ulcer prevention - continue GI & VTE prophylaxis -Re-culture if any fevers -Replete electrolytes as indicated -Need to have discussions with the sister re tracheostomy and PEG placement - continue other care per attending / other consultants The high probability of a clinically significant, sudden or life threatening deterioration of the [cardiac, respiratory and neurologic] system(s) required my full and direct attention, intervention and personal management. The aggregate critical care time was [30] minutes. This time is in addition to time spent performing reported procedures but includes the following: [x] Data Review and interpretation [x] Patient assessment and monitoring of vital signs [x] Documentation Subjective Date of service: 10/13/18 Principal diagnosis: low wbc Interval history: 33 y/o male with no PMH; admitted on 09/11/2018 due to 4 days-AMS/behavioral changes, nausea, voimiting, diarrhea, weight loss and cough: Patient is seen today for: Severe sepsis (present on admission with fever, tachycardia, hypotension and elevated lactate); Acute hypoxemic Respiratory failure; Bilateral pneumonia; Acute encephalopathy (Toxic / Metabolic); Atrial Fibrillation with RVR; HIV-AIDS Seen and examined at bedside; 24hour events reviewed; nursing and respiratory care staff consulted; no adverse overnight events reported to me; resting peacefully in bed; generalized edema with ongoing diarrhea. No further fevers overnight, Oral secretions, awake but not obeying commands. Remains on MVS, PSV 10/6 with tidal volumes of about 350ml, not in any distress Discussed with general surgery, trach pending his sister giving consent No new events overnight Objective Vital Signs - 12hr 10/12/18 10/12/18 10/12/18 22:00 23:00 23:49 Temperature 98.0 F Pulse Rate 91 H 88 Pulse Rate [ Throughout] Respiratory 13 27 H Rate Respiratory Rate [ Throughout] Blood Pressure 118/75 126/82 O2 Sat by Pulse 99 100 Oximetry 10/12/18 10/13/18 10/13/18 23:59 00:00 00:01 Temperature Pulse Rate 89 86 86 Pulse Rate [ Throughout] Respiratory 18 20 Rate Respiratory Rate [ Throughout] Blood Pressure 119/78 119/78 O2 Sat by Pulse 100 99 100 Oximetry 10/13/18 10/13/18 10/13/18 01:00 02:00 02:30 Temperature Pulse Rate 86 86 Pulse Rate [ 80 Throughout] Respiratory 23 22 Rate Respiratory 18 Rate [ Throughout] Blood Pressure 122/79 121/75 O2 Sat by Pulse 100 100 Oximetry 10/13/18 10/13/18 10/13/18 02:40 03:00 03:45 Temperature Pulse Rate 90 88 Pulse Rate [ 85 Throughout] Respiratory 23 Rate Respiratory 20 Rate [ Throughout] Blood Pressure 124/79 O2 Sat by Pulse 100 100 Oximetry 10/13/18 10/13/18 10/13/18 04:00 05:00 06:00 Temperature 98.7 F Pulse Rate 92 H 93 H 91 H Pulse Rate [ Throughout] Respiratory 21 25 H 18 Rate Respiratory Rate [ Throughout] Blood Pressure 127/77 121/78 122/76 O2 Sat by Pulse 100 99 Oximetry 10/13/18 10/13/18 10/13/18 07:00 08:00 08:16 Temperature 97.7 F Pulse Rate 92 H 89 Pulse Rate [ 89 Throughout] Respiratory 21 21 Rate Respiratory 19 Rate [ Throughout] Blood Pressure 123/79 116/74 O2 Sat by Pulse 98 100 Oximetry 10/13/18 10/13/18 08:17 08:26 Temperature Pulse Rate 89 Pulse Rate [ 89 Throughout] Respiratory Rate Respiratory 19 Rate [ Throughout] Blood Pressure 116/74 O2 Sat by Pulse Oximetry Constitutional: lethargic, agitated, appears uncomfortable, other (orally intubated ETT at 23cm) Eyes: non-icteric ENT: oropharynx moist, other (ETT 25 cm NIKA) Neck: supple, no lymphadenopathy, other (no thyromegaly) Effort: normal Ascultation: Bilateral: rales, rhonchi (scant) Percussion: Bilateral: not dull Cardiovascular: regular rate and rhythm, other (S1,S2, no murmurs, gallps or rubs) Gastrointestinal: normoactive bowel sounds, soft, non-tender, non-distended Integumentary: rash Extremities: no cyanosis, pulses normal, no ischemia or petechiae, edema Neurologic: non-focal exam (grossly), pupils equal and round, other (Left sided hemiparesis) Psychiatric: other (unable to assess) CBC and BMP: 10/14/18 Unknown 10/14/18 Unknown ABG, PT/INR, D-dimer: ABG POC ABG pH 7.336 (7.35-7.45) L 10/12/18 13:30 POC ABG pCO2 31.5 (35-45) L 10/12/18 13:30 POC ABG pO2 122 (80-105) H 10/12/18 13:30 POC ABG HCO3 16.8 10/12/18 13:30 POC ABG Total CO2 18 10/12/18 13:30 POC ABG O2 Sat 99 10/12/18 13:30 PT/INR, D-dimer PT 16.0 Sec. (12.2-14.9) H 10/10/18 08:09 INR 1.20 (0.87-1.13) H 10/10/18 08:09 Abnormal lab findings: Abnormal Labs 09/11/18 09/11/18 09/11/18 18:00 18:00 18:00 WBC 1.9 L* RBC Hgb Hct RDW Plt Count 130 L Seg Neuts % (Manual) Lymphocytes % (Manual) Monocytes % (Manual) 16.0 H Eosinophils % (Manual) Basophils % (Manual) Nucleated RBC % Seg Neutrophils # Man 0.9 L Abs Lymphs (Manual) Lymphocytes # (Manual) 0.5 L Basophils # (Manual) PT INR APTT Heparin Anti-Xa Level POC ABG pH POC ABG pCO2 POC ABG pO2 Sodium 131 L Potassium Chloride Carbon Dioxide 17 L BUN 21 H Creatinine Glucose 126 H POC Glucose Lactic Acid 2.60 H* Calcium 8.1 L Phosphorus Magnesium Iron TIBC Ferritin AST 123 H ALT 115 H Total Creatine Kinase Total Protein Albumin 3.0 L Vitamin B12 Folate TSH Free T4 Urine WBC (Auto) Urine Creatinine Urine Chloride Urine Total Protein CSF VDRL Lymph Enumerat CD4/CD8 Absolute CD3 Count % CD4 Cells Absolute CD4 Count % CD8 Cells Absolute CD19 Count T.pallidum Ab (FTA-ABS) HIV-1 RNA PCR copies/ml HIV-1 RNA (PCR) log Miscellaneous Test 09/11/18 09/13/18 09/13/18 19:01 04:28 07:31 WBC 2.0 L RBC Hgb Hct RDW Plt Count 116 L Seg Neuts % (Manual) Lymphocytes % (Manual) Monocytes % (Manual) 8.0 H Eosinophils % (Manual) Basophils % (Manual) Nucleated RBC % Seg Neutrophils # Man 1.0 L Abs Lymphs (Manual) Lymphocytes # (Manual) 0.5 L Basophils # (Manual) PT INR APTT Heparin Anti-Xa Level POC ABG pH POC ABG pCO2 POC ABG pO2 Sodium Potassium Chloride 110.4 H Carbon Dioxide 19 L BUN Creatinine Glucose POC Glucose Lactic Acid 3.70 H* Calcium 7.9 L Phosphorus Magnesium Iron TIBC Ferritin AST ALT Total Creatine Kinase Total Protein Albumin Vitamin B12 Folate TSH Free T4 Urine WBC (Auto) Urine Creatinine Urine Chloride Urine Total Protein CSF VDRL Lymph Enumerat CD4/CD8 Absolute CD3 Count % CD4 Cells Absolute CD4 Count % CD8 Cells Absolute CD19 Count T.pallidum Ab (FTA-ABS) HIV-1 RNA PCR copies/ml HIV-1 RNA (PCR) log Miscellaneous Test 09/13/18 09/13/18 09/13/18 07:31 12:29 12:29 WBC RBC Hgb Hct RDW Plt Count Seg Neuts % (Manual) Lymphocytes % (Manual) Monocytes % (Manual) Eosinophils % (Manual) Basophils % (Manual) Nucleated RBC % Seg Neutrophils # Man Abs Lymphs (Manual) 309 L Lymphocytes # (Manual) Basophils # (Manual) PT INR APTT Heparin Anti-Xa Level POC ABG pH POC ABG pCO2 POC ABG pO2 Sodium Potassium Chloride Carbon Dioxide BUN Creatinine Glucose POC Glucose Lactic Acid Calcium Phosphorus Magnesium Iron TIBC Ferritin AST 70 H ALT 68 H Total Creatine Kinase Total Protein Albumin 2.5 L Vitamin B12 Folate TSH Free T4 Urine WBC (Auto) Urine Creatinine Urine Chloride Urine Total Protein CSF VDRL Lymph Enumerat CD4/CD8 0.01 L Absolute CD3 Count 220 L % CD4 Cells 1 L Absolute CD4 Count 4 L % CD8 Cells 70 H Absolute CD19 Count 54 L T.pallidum Ab (FTA-ABS) HIV-1 RNA PCR copies/ml 20422 H HIV-1 RNA (PCR) log 4.71 H Miscellaneous Test 09/13/18 09/14/18 09/14/18 12:29 07:17 16:34 WBC RBC Hgb Hct RDW Plt Count Seg Neuts % (Manual) Lymphocytes % (Manual) Monocytes % (Manual) Eosinophils % (Manual) Basophils % (Manual) Nucleated RBC % Seg Neutrophils # Man Abs Lymphs (Manual) Lymphocytes # (Manual) Basophils # (Manual) PT INR APTT Heparin Anti-Xa Level POC ABG pH POC ABG pCO2 POC ABG pO2 Sodium Potassium 3.4 L Chloride Carbon Dioxide 18 L BUN Creatinine Glucose 104 H POC Glucose Lactic Acid Calcium 7.6 L Phosphorus Magnesium Iron TIBC Ferritin AST 49 H ALT Total Creatine Kinase Total Protein Albumin 2.5 L Vitamin B12 Folate TSH Free T4 Urine WBC (Auto) Urine Creatinine Urine Chloride Urine Total Protein CSF VDRL Lymph Enumerat CD4/CD8 Absolute CD3 Count % CD4 Cells Absolute CD4 Count % CD8 Cells Absolute CD19 Count T.pallidum Ab (FTA-ABS) Reactive H HIV-1 RNA PCR copies/ml HIV-1 RNA (PCR) log Miscellaneous Test Flexitest 1 H 09/15/18 09/15/18 09/15/18 05:05 05:05 Unknown WBC 1.6 L* RBC Hgb 10.4 L Hct 31.1 L D RDW Plt Count 113 L Seg Neuts % (Manual) Lymphocytes % (Manual) Monocytes % (Manual) Eosinophils % (Manual) Basophils % (Manual) Nucleated RBC % Seg Neutrophils # Man Abs Lymphs (Manual) Lymphocytes # (Manual) Basophils # (Manual) PT INR APTT Heparin Anti-Xa Level POC ABG pH POC ABG pCO2 POC ABG pO2 Sodium Potassium Chloride 107.9 H Carbon Dioxide 18 L BUN 6 L Creatinine Glucose POC Glucose Lactic Acid Calcium 7.4 L Phosphorus Magnesium Iron TIBC Ferritin AST ALT Total Creatine Kinase Total Protein Albumin Vitamin B12 Folate TSH Free T4 Urine WBC (Auto) Urine Creatinine Urine Chloride Urine Total Protein CSF VDRL Reactive 1:8 H Lymph Enumerat CD4/CD8 Absolute CD3 Count % CD4 Cells Absolute CD4 Count % CD8 Cells Absolute CD19 Count T.pallidum Ab (FTA-ABS) HIV-1 RNA PCR copies/ml HIV-1 RNA (PCR) log Miscellaneous Test 09/16/18 09/16/18 09/16/18 06:55 11:41 11:41 WBC 2.8 L RBC Hgb 10.9 L Hct 33.5 L RDW Plt Count 135 L Seg Neuts % (Manual) Lymphocytes % (Manual) Monocytes % (Manual) Eosinophils % (Manual) Basophils % (Manual) Nucleated RBC % Seg Neutrophils # Man Abs Lymphs (Manual) Lymphocytes # (Manual) Basophils # (Manual) PT INR APTT Heparin Anti-Xa Level POC ABG pH POC ABG pCO2 POC ABG pO2 Sodium Potassium Chloride Carbon Dioxide BUN Creatinine Glucose POC Glucose Lactic Acid Calcium Phosphorus Magnesium Iron TIBC Ferritin AST ALT Total Creatine Kinase Total Protein Albumin Vitamin B12 Folate TSH 4.210 H Free T4 0.72 L Urine WBC (Auto) Urine Creatinine Urine Chloride Urine Total Protein CSF VDRL Lymph Enumerat CD4/CD8 Absolute CD3 Count % CD4 Cells Absolute CD4 Count % CD8 Cells Absolute CD19 Count T.pallidum Ab (FTA-ABS) HIV-1 RNA PCR copies/ml HIV-1 RNA (PCR) log Miscellaneous Test 09/16/18 09/16/18 09/17/18 11:41 15:43 05:13 WBC 2.0 L RBC Hgb 10.9 L Hct 32.7 L RDW Plt Count Seg Neuts % (Manual) Lymphocytes % (Manual) Monocytes % (Manual) Eosinophils % (Manual) Basophils % (Manual) Nucleated RBC % Seg Neutrophils # Man Abs Lymphs (Manual) Lymphocytes # (Manual) Basophils # (Manual) PT INR APTT Heparin Anti-Xa Level POC ABG pH POC ABG pCO2 29.3 L POC ABG pO2 70 L Sodium Potassium Chloride Carbon Dioxide BUN Creatinine Glucose POC Glucose Lactic Acid Calcium Phosphorus Magnesium Iron TIBC Ferritin AST ALT Total Creatine Kinase Total Protein Albumin Vitamin B12 934.5 H Folate TSH Free T4 Urine WBC (Auto) Urine Creatinine Urine Chloride Urine Total Protein CSF VDRL Lymph Enumerat CD4/CD8 Absolute CD3 Count % CD4 Cells Absolute CD4 Count % CD8 Cells Absolute CD19 Count T.pallidum Ab (FTA-ABS) HIV-1 RNA PCR copies/ml HIV-1 RNA (PCR) log Miscellaneous Test 09/17/18 09/17/18 09/18/18 05:13 21:57 12:46 WBC RBC Hgb Hct RDW Plt Count Seg Neuts % (Manual) Lymphocytes % (Manual) Monocytes % (Manual) Eosinophils % (Manual) Basophils % (Manual) Nucleated RBC % Seg Neutrophils # Man Abs Lymphs (Manual) Lymphocytes # (Manual) Basophils # (Manual) PT INR APTT Heparin Anti-Xa Level POC ABG pH POC ABG pCO2 POC ABG pO2 Sodium Potassium Chloride 107.2 H Carbon Dioxide 21 L BUN 3 L Creatinine 0.7 L Glucose POC Glucose 108 H Lactic Acid Calcium 7.9 L Phosphorus Magnesium Iron TIBC Ferritin AST ALT Total Creatine Kinase Total Protein 6.1 L Albumin 2.6 L Vitamin B12 Folate TSH Free T4 0.75 L Urine WBC (Auto) Urine Creatinine Urine Chloride Urine Total Protein CSF VDRL Lymph Enumerat CD4/CD8 Absolute CD3 Count % CD4 Cells Absolute CD4 Count % CD8 Cells Absolute CD19 Count T.pallidum Ab (FTA-ABS) HIV-1 RNA PCR copies/ml HIV-1 RNA (PCR) log Miscellaneous Test 09/18/18 09/19/18 09/19/18 12:46 04:57 04:57 WBC 2.1 L RBC Hgb 11.4 L Hct 34.2 L RDW Plt Count Seg Neuts % (Manual) Lymphocytes % (Manual) Monocytes % (Manual) Eosinophils % (Manual) Basophils % (Manual) Nucleated RBC % Seg Neutrophils # Man Abs Lymphs (Manual) Lymphocytes # (Manual) Basophils # (Manual) PT INR APTT Heparin Anti-Xa Level POC ABG pH POC ABG pCO2 POC ABG pO2 Sodium Potassium Chloride Carbon Dioxide 19 L BUN 6 L Creatinine Glucose POC Glucose Lactic Acid Calcium 7.9 L Phosphorus Magnesium Iron TIBC Ferritin AST ALT Total Creatine Kinase Total Protein Albumin Vitamin B12 Folate TSH 5.190 H Free T4 Urine WBC (Auto) Urine Creatinine Urine Chloride Urine Total Protein CSF VDRL Lymph Enumerat CD4/CD8 Absolute CD3 Count % CD4 Cells Absolute CD4 Count % CD8 Cells Absolute CD19 Count T.pallidum Ab (FTA-ABS) HIV-1 RNA PCR copies/ml HIV-1 RNA (PCR) log Miscellaneous Test 09/19/18 09/19/18 09/20/18 15:00 15:00 05:33 WBC RBC Hgb Hct RDW Plt Count Seg Neuts % (Manual) Lymphocytes % (Manual) Monocytes % (Manual) Eosinophils % (Manual) Basophils % (Manual) Nucleated RBC % Seg Neutrophils # Man Abs Lymphs (Manual) Lymphocytes # (Manual) Basophils # (Manual) PT INR APTT Heparin Anti-Xa Level POC ABG pH POC ABG pCO2 POC ABG pO2 Sodium 136 L Potassium Chloride Carbon Dioxide 19 L BUN 7 L Creatinine Glucose POC Glucose Lactic Acid Calcium Phosphorus Magnesium Iron TIBC Ferritin AST ALT Total Creatine Kinase Total Protein Albumin Vitamin B12 Folate TSH Free T4 Urine WBC (Auto) Urine Creatinine Urine Chloride Urine Total Protein CSF VDRL Reactive 1:4 H Lymph Enumerat CD4/CD8 Absolute CD3 Count % CD4 Cells Absolute CD4 Count % CD8 Cells Absolute CD19 Count T.pallidum Ab (FTA-ABS) HIV-1 RNA PCR copies/ml HIV-1 RNA (PCR) log Miscellaneous Test Flexitest 1 H 09/20/18 09/21/18 09/21/18 06:52 01:06 03:49 WBC 2.5 L RBC Hgb Hct RDW Plt Count Seg Neuts % (Manual) Lymphocytes % (Manual) Monocytes % (Manual) Eosinophils % (Manual) Basophils % (Manual) Nucleated RBC % Seg Neutrophils # Man Abs Lymphs (Manual) Lymphocytes # (Manual) Basophils # (Manual) PT INR APTT Heparin Anti-Xa Level POC ABG pH 7.159 L POC ABG pCO2 32.9 L 70.0 H POC ABG pO2 62 L 254 H Sodium Potassium Chloride Carbon Dioxide BUN Creatinine Glucose POC Glucose Lactic Acid Calcium Phosphorus Magnesium Iron TIBC Ferritin AST ALT Total Creatine Kinase Total Protein Albumin Vitamin B12 Folate TSH Free T4 Urine WBC (Auto) Urine Creatinine Urine Chloride Urine Total Protein CSF VDRL Lymph Enumerat CD4/CD8 Absolute CD3 Count % CD4 Cells Absolute CD4 Count % CD8 Cells Absolute CD19 Count T.pallidum Ab (FTA-ABS) HIV-1 RNA PCR copies/ml HIV-1 RNA (PCR) log Miscellaneous Test 09/21/18 09/21/18 09/21/18 04:15 04:15 04:25 WBC 3.1 L RBC Hgb 11.6 L Hct RDW Plt Count Seg Neuts % (Manual) Lymphocytes % (Manual) Monocytes % (Manual) 12.0 H Eosinophils % (Manual) Basophils % (Manual) Nucleated RBC % Seg Neutrophils # Man 1.6 L Abs Lymphs (Manual) Lymphocytes # (Manual) 0.5 L Basophils # (Manual) PT INR APTT Heparin Anti-Xa Level POC ABG pH POC ABG pCO2 POC ABG pO2 Sodium Potassium 6.1 H* D Chloride Carbon Dioxide 19 L BUN Creatinine Glucose 108 H POC Glucose Lactic Acid Calcium Phosphorus Magnesium Iron TIBC Ferritin AST ALT Total Creatine Kinase 685 H Total Protein Albumin Vitamin B12 Folate TSH Free T4 Urine WBC (Auto) Urine Creatinine Urine Chloride Urine Total Protein CSF VDRL Lymph Enumerat CD4/CD8 Absolute CD3 Count % CD4 Cells Absolute CD4 Count % CD8 Cells Absolute CD19 Count T.pallidum Ab (FTA-ABS) HIV-1 RNA PCR copies/ml HIV-1 RNA (PCR) log Miscellaneous Test 09/21/18 09/21/18 09/21/18 09:59 10:07 11:00 WBC RBC Hgb 11.7 L Hct RDW Plt Count Seg Neuts % (Manual) Lymphocytes % (Manual) Monocytes % (Manual) Eosinophils % (Manual) Basophils % (Manual) Nucleated RBC % Seg Neutrophils # Man Abs Lymphs (Manual) Lymphocytes # (Manual) Basophils # (Manual) PT INR APTT Heparin Anti-Xa Level POC ABG pH 7.301 L POC ABG pCO2 POC ABG pO2 109 H Sodium Potassium 6.5 H* Chloride Carbon Dioxide 18 L BUN Creatinine 2.1 H D Glucose POC Glucose Lactic Acid Calcium 8.1 L Phosphorus Magnesium Iron TIBC Ferritin AST 94 H ALT Total Creatine Kinase Total Protein Albumin 2.8 L Vitamin B12 Folate TSH Free T4 Urine WBC (Auto) Urine Creatinine Urine Chloride Urine Total Protein CSF VDRL Lymph Enumerat CD4/CD8 Absolute CD3 Count % CD4 Cells Absolute CD4 Count % CD8 Cells Absolute CD19 Count T.pallidum Ab (FTA-ABS) HIV-1 RNA PCR copies/ml HIV-1 RNA (PCR) log Miscellaneous Test 09/21/18 09/21/18 09/21/18 15:00 21:54 21:54 WBC RBC Hgb Hct RDW Plt Count Seg Neuts % (Manual) Lymphocytes % (Manual) Monocytes % (Manual) Eosinophils % (Manual) Basophils % (Manual) Nucleated RBC % Seg Neutrophils # Man Abs Lymphs (Manual) Lymphocytes # (Manual) Basophils # (Manual) PT 19.9 H INR 1.65 H APTT 40.9 H Heparin Anti-Xa Level 0.98 H POC ABG pH POC ABG pCO2 POC ABG pO2 Sodium Potassium 5.2 H Chloride Carbon Dioxide BUN Creatinine Glucose POC Glucose Lactic Acid Calcium Phosphorus Magnesium Iron TIBC Ferritin AST ALT Total Creatine Kinase Total Protein Albumin Vitamin B12 Folate TSH Free T4 Urine WBC (Auto) Urine Creatinine Urine Chloride Urine Total Protein CSF VDRL Lymph Enumerat CD4/CD8 Absolute CD3 Count % CD4 Cells Absolute CD4 Count % CD8 Cells Absolute CD19 Count T.pallidum Ab (FTA-ABS) HIV-1 RNA PCR copies/ml HIV-1 RNA (PCR) log Miscellaneous Test 09/21/18 09/22/18 09/22/18 22:57 03:01 05:27 WBC RBC Hgb Hct RDW Plt Count Seg Neuts % (Manual) Lymphocytes % (Manual) Monocytes % (Manual) Eosinophils % (Manual) Basophils % (Manual) Nucleated RBC % Seg Neutrophils # Man Abs Lymphs (Manual) Lymphocytes # (Manual) Basophils # (Manual) PT INR APTT Heparin Anti-Xa Level POC ABG pH POC ABG pCO2 32.7 L POC ABG pO2 Sodium Potassium Chloride Carbon Dioxide BUN Creatinine Glucose POC Glucose 124 H 128 H Lactic Acid Calcium Phosphorus Magnesium Iron TIBC Ferritin AST ALT Total Creatine Kinase Total Protein Albumin Vitamin B12 Folate TSH Free T4 Urine WBC (Auto) Urine Creatinine Urine Chloride Urine Total Protein CSF VDRL Lymph Enumerat CD4/CD8 Absolute CD3 Count % CD4 Cells Absolute CD4 Count % CD8 Cells Absolute CD19 Count T.pallidum Ab (FTA-ABS) HIV-1 RNA PCR copies/ml HIV-1 RNA (PCR) log Miscellaneous Test 09/22/18 09/22/18 09/22/18 07:00 07:00 11:32 WBC 1.8 L* RBC 3.59 L Hgb 10.1 L Hct 30.8 L RDW Plt Count 126 L Seg Neuts % (Manual) Lymphocytes % (Manual) Monocytes % (Manual) Eosinophils % (Manual) Basophils % (Manual) Nucleated RBC % Seg Neutrophils # Man Abs Lymphs (Manual) Lymphocytes # (Manual) Basophils # (Manual) PT INR APTT Heparin Anti-Xa Level POC ABG pH POC ABG pCO2 POC ABG pO2 Sodium Potassium Chloride Carbon Dioxide BUN 27 H Creatinine 2.0 H Glucose 128 H POC Glucose 123 H Lactic Acid Calcium 6.9 L Phosphorus Magnesium Iron TIBC Ferritin AST ALT Total Creatine Kinase Total Protein Albumin Vitamin B12 Folate TSH Free T4 Urine WBC (Auto) Urine Creatinine Urine Chloride Urine Total Protein CSF VDRL Lymph Enumerat CD4/CD8 Absolute CD3 Count % CD4 Cells Absolute CD4 Count % CD8 Cells Absolute CD19 Count T.pallidum Ab (FTA-ABS) HIV-1 RNA PCR copies/ml HIV-1 RNA (PCR) log Miscellaneous Test 09/22/18 09/22/18 09/22/18 15:52 18:18 23:52 WBC RBC Hgb Hct RDW Plt Count Seg Neuts % (Manual) Lymphocytes % (Manual) Monocytes % (Manual) Eosinophils % (Manual) Basophils % (Manual) Nucleated RBC % Seg Neutrophils # Man Abs Lymphs (Manual) Lymphocytes # (Manual) Basophils # (Manual) PT INR APTT Heparin Anti-Xa Level POC ABG pH POC ABG pCO2 48.7 H POC ABG pO2 Sodium Potassium Chloride Carbon Dioxide BUN Creatinine Glucose POC Glucose 110 H 124 H Lactic Acid Calcium Phosphorus Magnesium Iron TIBC Ferritin AST ALT Total Creatine Kinase Total Protein Albumin Vitamin B12 Folate TSH Free T4 Urine WBC (Auto) Urine Creatinine Urine Chloride Urine Total Protein CSF VDRL Lymph Enumerat CD4/CD8 Absolute CD3 Count % CD4 Cells Absolute CD4 Count % CD8 Cells Absolute CD19 Count T.pallidum Ab (FTA-ABS) HIV-1 RNA PCR copies/ml HIV-1 RNA (PCR) log Miscellaneous Test 09/23/18 09/23/18 09/23/18 04:10 05:55 05:55 WBC RBC Hgb 10.0 L Hct 30.3 L RDW Plt Count 117 L Seg Neuts % (Manual) Lymphocytes % (Manual) Monocytes % (Manual) Eosinophils % (Manual) Basophils % (Manual) Nucleated RBC % Seg Neutrophils # Man Abs Lymphs (Manual) Lymphocytes # (Manual) Basophils # (Manual) PT INR APTT Heparin Anti-Xa Level 0.26 L POC ABG pH POC ABG pCO2 POC ABG pO2 144 H Sodium Potassium Chloride Carbon Dioxide BUN Creatinine Glucose POC Glucose Lactic Acid Calcium Phosphorus Magnesium Iron TIBC Ferritin AST ALT Total Creatine Kinase Total Protein Albumin Vitamin B12 Folate TSH Free T4 Urine WBC (Auto) Urine Creatinine Urine Chloride Urine Total Protein CSF VDRL Lymph Enumerat CD4/CD8 Absolute CD3 Count % CD4 Cells Absolute CD4 Count % CD8 Cells Absolute CD19 Count T.pallidum Ab (FTA-ABS) HIV-1 RNA PCR copies/ml HIV-1 RNA (PCR) log Miscellaneous Test 09/23/18 09/23/18 09/23/18 08:10 08:10 23:57 WBC 1.3 L* RBC 3.53 L Hgb 9.9 L Hct 30.0 L RDW Plt Count 119 L Seg Neuts % (Manual) Lymphocytes % (Manual) Monocytes % (Manual) Eosinophils % (Manual) Basophils % (Manual) Nucleated RBC % Seg Neutrophils # Man Abs Lymphs (Manual) Lymphocytes # (Manual) Basophils # (Manual) PT INR APTT Heparin Anti-Xa Level POC ABG pH POC ABG pCO2 POC ABG pO2 Sodium Potassium Chloride Carbon Dioxide BUN Creatinine Glucose 122 H POC Glucose 115 H Lactic Acid Calcium 6.9 L Phosphorus Magnesium Iron TIBC Ferritin AST ALT Total Creatine Kinase Total Protein Albumin Vitamin B12 Folate TSH Free T4 Urine WBC (Auto) Urine Creatinine Urine Chloride Urine Total Protein CSF VDRL Lymph Enumerat CD4/CD8 Absolute CD3 Count % CD4 Cells Absolute CD4 Count % CD8 Cells Absolute CD19 Count T.pallidum Ab (FTA-ABS) HIV-1 RNA PCR copies/ml HIV-1 RNA (PCR) log Miscellaneous Test 09/24/18 09/24/18 09/24/18 12:04 14:42 18:10 WBC RBC Hgb Hct RDW Plt Count Seg Neuts % (Manual) Lymphocytes % (Manual) Monocytes % (Manual) Eosinophils % (Manual) Basophils % (Manual) Nucleated RBC % Seg Neutrophils # Man Abs Lymphs (Manual) Lymphocytes # (Manual) Basophils # (Manual) PT INR APTT Heparin Anti-Xa Level 0.76 H POC ABG pH POC ABG pCO2 POC ABG pO2 Sodium Potassium Chloride Carbon Dioxide BUN Creatinine Glucose POC Glucose 111 H 138 H Lactic Acid Calcium Phosphorus Magnesium Iron TIBC Ferritin AST ALT Total Creatine Kinase Total Protein Albumin Vitamin B12 Folate TSH Free T4 Urine WBC (Auto) Urine Creatinine Urine Chloride Urine Total Protein CSF VDRL Lymph Enumerat CD4/CD8 Absolute CD3 Count % CD4 Cells Absolute CD4 Count % CD8 Cells Absolute CD19 Count T.pallidum Ab (FTA-ABS) HIV-1 RNA PCR copies/ml HIV-1 RNA (PCR) log Miscellaneous Test 09/25/18 09/25/18 09/25/18 03:45 04:24 14:20 WBC RBC Hgb 9.7 L Hct 29.4 L RDW Plt Count 104 L Seg Neuts % (Manual) Lymphocytes % (Manual) Monocytes % (Manual) Eosinophils % (Manual) Basophils % (Manual) Nucleated RBC % Seg Neutrophils # Man Abs Lymphs (Manual) Lymphocytes # (Manual) Basophils # (Manual) PT INR APTT Heparin Anti-Xa Level POC ABG pH 7.460 H POC ABG pCO2 32.9 L POC ABG pO2 Sodium Potassium 3.5 L Chloride 110.3 H Carbon Dioxide BUN Creatinine Glucose 105 H POC Glucose Lactic Acid Calcium 6.7 L Phosphorus Magnesium Iron TIBC Ferritin AST 633 H ALT 481 H Total Creatine Kinase Total Protein 4.8 L D Albumin 1.9 L Vitamin B12 Folate TSH Free T4 Urine WBC (Auto) Urine Creatinine Urine Chloride Urine Total Protein CSF VDRL Lymph Enumerat CD4/CD8 Absolute CD3 Count % CD4 Cells Absolute CD4 Count % CD8 Cells Absolute CD19 Count T.pallidum Ab (FTA-ABS) HIV-1 RNA PCR copies/ml HIV-1 RNA (PCR) log Miscellaneous Test 09/26/18 09/26/18 09/26/18 06:15 06:15 10:43 WBC 1.2 L* RBC 3.32 L Hgb 9.2 L Hct 28.6 L RDW Plt Count 97 L Seg Neuts % (Manual) 24.0 L Lymphocytes % (Manual) 43.0 H Monocytes % (Manual) 19.0 H Eosinophils % (Manual) 8.0 H Basophils % (Manual) 2.0 H Nucleated RBC % 3.0 H Seg Neutrophils # Man 0.0 L Abs Lymphs (Manual) Lymphocytes # (Manual) 0.0 L Basophils # (Manual) PT INR APTT Heparin Anti-Xa Level POC ABG pH 7.459 H POC ABG pCO2 POC ABG pO2 141 H Sodium Potassium Chloride 112.8 H Carbon Dioxide BUN Creatinine Glucose 110 H POC Glucose Lactic Acid Calcium 7.0 L Phosphorus 0.90 L* Magnesium Iron TIBC Ferritin AST 362 H ALT 360 H Total Creatine Kinase Total Protein 4.9 L Albumin 1.5 L Vitamin B12 Folate TSH Free T4 Urine WBC (Auto) Urine Creatinine Urine Chloride Urine Total Protein CSF VDRL Lymph Enumerat CD4/CD8 Absolute CD3 Count % CD4 Cells Absolute CD4 Count % CD8 Cells Absolute CD19 Count T.pallidum Ab (FTA-ABS) HIV-1 RNA PCR copies/ml HIV-1 RNA (PCR) log Miscellaneous Test 09/26/18 09/27/18 09/28/18 13:56 04:11 07:49 WBC RBC Hgb 9.1 L Hct 29.1 L RDW Plt Count 96 L Seg Neuts % (Manual) Lymphocytes % (Manual) Monocytes % (Manual) Eosinophils % (Manual) Basophils % (Manual) Nucleated RBC % Seg Neutrophils # Man Abs Lymphs (Manual) Lymphocytes # (Manual) Basophils # (Manual) PT INR APTT Heparin Anti-Xa Level POC ABG pH POC ABG pCO2 POC ABG pO2 Sodium 146 H Potassium Chloride 111.6 H Carbon Dioxide BUN Creatinine Glucose POC Glucose 135 H Lactic Acid Calcium 7.4 L Phosphorus Magnesium Iron TIBC Ferritin AST ALT Total Creatine Kinase Total Protein Albumin Vitamin B12 Folate TSH Free T4 Urine WBC (Auto) Urine Creatinine Urine Chloride Urine Total Protein CSF VDRL Lymph Enumerat CD4/CD8 Absolute CD3 Count % CD4 Cells Absolute CD4 Count % CD8 Cells Absolute CD19 Count T.pallidum Ab (FTA-ABS) HIV-1 RNA PCR copies/ml HIV-1 RNA (PCR) log Miscellaneous Test 09/28/18 09/29/18 09/29/18 10:43 05:00 05:00 WBC 1.2 L* RBC 3.13 L Hgb 8.6 L Hct 27.3 L RDW Plt Count 137 L Seg Neuts % (Manual) Lymphocytes % (Manual) Monocytes % (Manual) 16.0 H Eosinophils % (Manual) Basophils % (Manual) Nucleated RBC % 4.0 H Seg Neutrophils # Man 0.5 L Abs Lymphs (Manual) Lymphocytes # (Manual) 0.3 L Basophils # (Manual) PT INR APTT Heparin Anti-Xa Level POC ABG pH 7.300 L POC ABG pCO2 53.9 H POC ABG pO2 Sodium 147 H Potassium 3.4 L Chloride 114.5 H Carbon Dioxide BUN Creatinine Glucose POC Glucose Lactic Acid Calcium 7.7 L Phosphorus Magnesium Iron TIBC Ferritin AST 69 H ALT 110 H Total Creatine Kinase Total Protein 5.2 L Albumin 1.9 L Vitamin B12 Folate TSH Free T4 Urine WBC (Auto) Urine Creatinine Urine Chloride Urine Total Protein CSF VDRL Lymph Enumerat CD4/CD8 Absolute CD3 Count % CD4 Cells Absolute CD4 Count % CD8 Cells Absolute CD19 Count T.pallidum Ab (FTA-ABS) HIV-1 RNA PCR copies/ml HIV-1 RNA (PCR) log Miscellaneous Test 09/29/18 09/29/18 09/30/18 06:07 13:22 05:19 WBC 0.9 L* RBC 3.03 L Hgb 8.6 L Hct 25.9 L RDW Plt Count Seg Neuts % (Manual) Lymphocytes % (Manual) Monocytes % (Manual) Eosinophils % (Manual) Basophils % (Manual) Nucleated RBC % Seg Neutrophils # Man Abs Lymphs (Manual) Lymphocytes # (Manual) Basophils # (Manual) PT INR APTT Heparin Anti-Xa Level POC ABG pH POC ABG pCO2 46.9 H POC ABG pO2 Sodium Potassium Chloride Carbon Dioxide BUN Creatinine Glucose POC Glucose 109 H Lactic Acid Calcium Phosphorus Magnesium Iron TIBC Ferritin AST ALT Total Creatine Kinase Total Protein Albumin Vitamin B12 Folate TSH Free T4 Urine WBC (Auto) Urine Creatinine Urine Chloride Urine Total Protein CSF VDRL Lymph Enumerat CD4/CD8 Absolute CD3 Count % CD4 Cells Absolute CD4 Count % CD8 Cells Absolute CD19 Count T.pallidum Ab (FTA-ABS) HIV-1 RNA PCR copies/ml HIV-1 RNA (PCR) log Miscellaneous Test 09/30/18 09/30/18 09/30/18 05:19 11:14 23:28 WBC RBC Hgb Hct RDW Plt Count Seg Neuts % (Manual) Lymphocytes % (Manual) Monocytes % (Manual) Eosinophils % (Manual) Basophils % (Manual) Nucleated RBC % Seg Neutrophils # Man Abs Lymphs (Manual) Lymphocytes # (Manual) Basophils # (Manual) PT INR APTT Heparin Anti-Xa Level 0.72 H POC ABG pH POC ABG pCO2 46.6 H POC ABG pO2 Sodium 150 H Potassium Chloride 115.2 H Carbon Dioxide BUN Creatinine Glucose POC Glucose Lactic Acid Calcium 7.9 L Phosphorus Magnesium Iron TIBC Ferritin AST ALT Total Creatine Kinase Total Protein Albumin Vitamin B12 Folate TSH Free T4 Urine WBC (Auto) Urine Creatinine Urine Chloride Urine Total Protein CSF VDRL Lymph Enumerat CD4/CD8 Absolute CD3 Count % CD4 Cells Absolute CD4 Count % CD8 Cells Absolute CD19 Count T.pallidum Ab (FTA-ABS) HIV-1 RNA PCR copies/ml HIV-1 RNA (PCR) log Miscellaneous Test 10/01/18 10/01/18 10/02/18 04:55 04:55 07:15 WBC 0.9 L* 0.7 L* RBC 3.01 L 2.92 L Hgb 8.4 L 8.4 L Hct 26.0 L 24.9 L RDW Plt Count Seg Neuts % (Manual) Lymphocytes % (Manual) Monocytes % (Manual) Eosinophils % (Manual) Basophils % (Manual) Nucleated RBC % Seg Neutrophils # Man Abs Lymphs (Manual) Lymphocytes # (Manual) Basophils # (Manual) PT INR APTT Heparin Anti-Xa Level POC ABG pH POC ABG pCO2 POC ABG pO2 Sodium 147 H Potassium 3.4 L Chloride 113.1 H Carbon Dioxide BUN 22 H Creatinine Glucose POC Glucose Lactic Acid Calcium 7.3 L Phosphorus Magnesium Iron TIBC Ferritin AST ALT Total Creatine Kinase Total Protein Albumin Vitamin B12 Folate TSH Free T4 Urine WBC (Auto) Urine Creatinine Urine Chloride Urine Total Protein CSF VDRL Lymph Enumerat CD4/CD8 Absolute CD3 Count % CD4 Cells Absolute CD4 Count % CD8 Cells Absolute CD19 Count T.pallidum Ab (FTA-ABS) HIV-1 RNA PCR copies/ml HIV-1 RNA (PCR) log Miscellaneous Test 10/02/18 10/03/18 10/03/18 07:15 06:12 06:12 WBC 0.8 L* RBC 2.96 L Hgb 8.5 L Hct 25.9 L RDW 15.4 H Plt Count Seg Neuts % (Manual) Lymphocytes % (Manual) Monocytes % (Manual) Eosinophils % (Manual) Basophils % (Manual) Nucleated RBC % Seg Neutrophils # Man Abs Lymphs (Manual) Lymphocytes # (Manual) Basophils # (Manual) PT INR APTT Heparin Anti-Xa Level POC ABG pH POC ABG pCO2 POC ABG pO2 Sodium Potassium 3.4 L 3.4 L Chloride 108.3 H Carbon Dioxide BUN Creatinine Glucose POC Glucose Lactic Acid Calcium 7.6 L 7.4 L Phosphorus Magnesium Iron TIBC Ferritin AST ALT Total Creatine Kinase Total Protein Albumin Vitamin B12 Folate TSH Free T4 Urine WBC (Auto) Urine Creatinine Urine Chloride Urine Total Protein CSF VDRL Lymph Enumerat CD4/CD8 Absolute CD3 Count % CD4 Cells Absolute CD4 Count % CD8 Cells Absolute CD19 Count T.pallidum Ab (FTA-ABS) HIV-1 RNA PCR copies/ml HIV-1 RNA (PCR) log Miscellaneous Test 10/03/18 10/03/18 10/04/18 11:45 13:23 01:40 WBC RBC Hgb Hct RDW Plt Count Seg Neuts % (Manual) Lymphocytes % (Manual) Monocytes % (Manual) Eosinophils % (Manual) Basophils % (Manual) Nucleated RBC % Seg Neutrophils # Man Abs Lymphs (Manual) Lymphocytes # (Manual) Basophils # (Manual) PT INR APTT Heparin Anti-Xa Level 1.34 H 0.26 L POC ABG pH POC ABG pCO2 POC ABG pO2 Sodium Potassium Chloride Carbon Dioxide BUN Creatinine Glucose POC Glucose Lactic Acid Calcium Phosphorus Magnesium 1.40 L Iron TIBC Ferritin AST ALT Total Creatine Kinase Total Protein Albumin Vitamin B12 Folate TSH Free T4 Urine WBC (Auto) Urine Creatinine Urine Chloride Urine Total Protein CSF VDRL Lymph Enumerat CD4/CD8 Absolute CD3 Count % CD4 Cells Absolute CD4 Count % CD8 Cells Absolute CD19 Count T.pallidum Ab (FTA-ABS) HIV-1 RNA PCR copies/ml HIV-1 RNA (PCR) log Miscellaneous Test 10/04/18 10/04/18 10/06/18 04:45 04:45 09:40 WBC 0.8 L* RBC 3.11 L Hgb 9.0 L Hct 27.4 L RDW 15.4 H Plt Count Seg Neuts % (Manual) Lymphocytes % (Manual) Monocytes % (Manual) Eosinophils % (Manual) Basophils % (Manual) Nucleated RBC % Seg Neutrophils # Man Abs Lymphs (Manual) Lymphocytes # (Manual) Basophils # (Manual) PT INR APTT Heparin Anti-Xa Level POC ABG pH POC ABG pCO2 POC ABG pO2 Sodium Potassium Chloride Carbon Dioxide BUN Creatinine 0.7 L Glucose POC Glucose Lactic Acid Calcium 7.5 L Phosphorus Magnesium Iron 35 L TIBC 157 L Ferritin AST ALT Total Creatine Kinase Total Protein Albumin Vitamin B12 Folate TSH Free T4 Urine WBC (Auto) Urine Creatinine Urine Chloride Urine Total Protein CSF VDRL Lymph Enumerat CD4/CD8 Absolute CD3 Count % CD4 Cells Absolute CD4 Count % CD8 Cells Absolute CD19 Count T.pallidum Ab (FTA-ABS) HIV-1 RNA PCR copies/ml HIV-1 RNA (PCR) log Miscellaneous Test 10/06/18 10/06/18 10/07/18 09:40 09:40 04:20 WBC 1.1 L* RBC 3.07 L Hgb 9.1 L Hct 27.3 L RDW 20.3 H Plt Count Seg Neuts % (Manual) Lymphocytes % (Manual) Monocytes % (Manual) Eosinophils % (Manual) Basophils % (Manual) Nucleated RBC % Seg Neutrophils # Man 0.7 L Abs Lymphs (Manual) Lymphocytes # (Manual) 0.3 L Basophils # (Manual) PT INR APTT Heparin Anti-Xa Level POC ABG pH POC ABG pCO2 POC ABG pO2 Sodium Potassium Chloride Carbon Dioxide BUN Creatinine Glucose POC Glucose Lactic Acid Calcium Phosphorus Magnesium Iron TIBC Ferritin 1126.0 H AST ALT Total Creatine Kinase Total Protein Albumin Vitamin B12 Folate 6.71 L TSH Free T4 Urine WBC (Auto) Urine Creatinine Urine Chloride Urine Total Protein CSF VDRL Lymph Enumerat CD4/CD8 Absolute CD3 Count % CD4 Cells Absolute CD4 Count % CD8 Cells Absolute CD19 Count T.pallidum Ab (FTA-ABS) HIV-1 RNA PCR copies/ml HIV-1 RNA (PCR) log Miscellaneous Test 10/07/18 10/07/18 10/09/18 04:20 15:38 04:20 WBC 1.1 L* RBC 3.35 L Hgb 9.9 L Hct 30.1 L RDW 21.4 H Plt Count Seg Neuts % (Manual) 19.0 L Lymphocytes % (Manual) 42.0 H Monocytes % (Manual) 18.0 H Eosinophils % (Manual) 15.0 H Basophils % (Manual) 2.0 H Nucleated RBC % Seg Neutrophils # Man 0.2 L Abs Lymphs (Manual) Lymphocytes # (Manual) 0.5 L Basophils # (Manual) PT INR APTT Heparin Anti-Xa Level POC ABG pH 7.516 H POC ABG pCO2 32.1 L POC ABG pO2 Sodium Potassium Chloride Carbon Dioxide BUN Creatinine 0.7 L Glucose POC Glucose Lactic Acid Calcium 7.9 L Phosphorus Magnesium Iron TIBC Ferritin AST ALT Total Creatine Kinase Total Protein 5.5 L Albumin 2.2 L Vitamin B12 Folate TSH Free T4 Urine WBC (Auto) Urine Creatinine Urine Chloride Urine Total Protein CSF VDRL Lymph Enumerat CD4/CD8 Absolute CD3 Count % CD4 Cells Absolute CD4 Count % CD8 Cells Absolute CD19 Count T.pallidum Ab (FTA-ABS) HIV-1 RNA PCR copies/ml HIV-1 RNA (PCR) log Miscellaneous Test 10/09/18 10/09/18 10/09/18 04:20 11:48 17:31 WBC RBC Hgb Hct RDW Plt Count Seg Neuts % (Manual) Lymphocytes % (Manual) Monocytes % (Manual) Eosinophils % (Manual) Basophils % (Manual) Nucleated RBC % Seg Neutrophils # Man Abs Lymphs (Manual) Lymphocytes # (Manual) Basophils # (Manual) PT INR APTT Heparin Anti-Xa Level POC ABG pH POC ABG pCO2 POC ABG pO2 Sodium Potassium 5.4 H Chloride Carbon Dioxide 21 L BUN 55 H 72 H Creatinine 3.8 H D 4.5 H Glucose 118 H POC Glucose 124 H Lactic Acid Calcium 8.3 L 8.2 L Phosphorus Magnesium Iron TIBC Ferritin AST ALT Total Creatine Kinase Total Protein Albumin Vitamin B12 Folate TSH Free T4 Urine WBC (Auto) Urine Creatinine Urine Chloride Urine Total Protein CSF VDRL Lymph Enumerat CD4/CD8 Absolute CD3 Count % CD4 Cells Absolute CD4 Count % CD8 Cells Absolute CD19 Count T.pallidum Ab (FTA-ABS) HIV-1 RNA PCR copies/ml HIV-1 RNA (PCR) log Miscellaneous Test 10/10/18 10/10/18 10/10/18 08:09 08:35 10:54 WBC 1.1 L* RBC 3.16 L Hgb 9.6 L Hct 28.8 L RDW 21.2 H Plt Count Seg Neuts % (Manual) 27.0 L Lymphocytes % (Manual) Monocytes % (Manual) 9.0 H Eosinophils % (Manual) 18.0 H Basophils % (Manual) 12.0 H Nucleated RBC % Seg Neutrophils # Man 0.3 L Abs Lymphs (Manual) Lymphocytes # (Manual) 0.3 L Basophils # (Manual) PT 16.0 H INR 1.20 H APTT Heparin Anti-Xa Level POC ABG pH POC ABG pCO2 POC ABG pO2 Sodium Potassium 5.5 H Chloride Carbon Dioxide 20 L BUN 83 H Creatinine 5.5 H Glucose 119 H POC Glucose Lactic Acid Calcium Phosphorus Magnesium Iron TIBC Ferritin AST ALT Total Creatine Kinase Total Protein Albumin Vitamin B12 Folate TSH Free T4 Urine WBC (Auto) Urine Creatinine Urine Chloride Urine Total Protein CSF VDRL Lymph Enumerat CD4/CD8 Absolute CD3 Count % CD4 Cells Absolute CD4 Count % CD8 Cells Absolute CD19 Count T.pallidum Ab (FTA-ABS) HIV-1 RNA PCR copies/ml HIV-1 RNA (PCR) log Miscellaneous Test 10/11/18 10/11/18 10/11/18 05:20 05:20 05:40 WBC 1.2 L* RBC 2.89 L Hgb 8.7 L Hct 26.0 L RDW 20.1 H Plt Count Seg Neuts % (Manual) Lymphocytes % (Manual) 8.0 L Monocytes % (Manual) 12.0 H Eosinophils % (Manual) 24.0 H Basophils % (Manual) 4.0 H Nucleated RBC % Seg Neutrophils # Man 0.6 L Abs Lymphs (Manual) Lymphocytes # (Manual) 0.1 L Basophils # (Manual) PT INR APTT Heparin Anti-Xa Level POC ABG pH POC ABG pCO2 POC ABG pO2 Sodium Potassium Chloride Carbon Dioxide 20 L BUN 102 H Creatinine 6.7 H Glucose POC Glucose Lactic Acid Calcium 8.3 L Phosphorus Magnesium Iron TIBC Ferritin AST ALT Total Creatine Kinase Total Protein Albumin Vitamin B12 Folate TSH Free T4 Urine WBC (Auto) 8.0 H Urine Creatinine Urine Chloride Urine Total Protein CSF VDRL Lymph Enumerat CD4/CD8 Absolute CD3 Count % CD4 Cells Absolute CD4 Count % CD8 Cells Absolute CD19 Count T.pallidum Ab (FTA-ABS) HIV-1 RNA PCR copies/ml HIV-1 RNA (PCR) log Miscellaneous Test 10/11/18 10/11/18 10/12/18 05:40 16:41 03:30 WBC 0.9 L* RBC 2.78 L Hgb 8.3 L Hct 25.1 L RDW 19.9 H Plt Count Seg Neuts % (Manual) Lymphocytes % (Manual) Monocytes % (Manual) Eosinophils % (Manual) 20.0 H Basophils % (Manual) Nucleated RBC % Seg Neutrophils # Man 0.5 L Abs Lymphs (Manual) Lymphocytes # (Manual) 0.3 L Basophils # (Manual) PT INR APTT Heparin Anti-Xa Level POC ABG pH 7.318 L POC ABG pCO2 POC ABG pO2 Sodium Potassium Chloride Carbon Dioxide BUN Creatinine Glucose POC Glucose Lactic Acid Calcium Phosphorus Magnesium Iron TIBC Ferritin AST ALT Total Creatine Kinase Total Protein Albumin Vitamin B12 Folate TSH Free T4 Urine WBC (Auto) Urine Creatinine 57.5 H Urine Chloride 35.1 L Urine Total Protein 44 H CSF VDRL Lymph Enumerat CD4/CD8 Absolute CD3 Count % CD4 Cells Absolute CD4 Count % CD8 Cells Absolute CD19 Count T.pallidum Ab (FTA-ABS) HIV-1 RNA PCR copies/ml HIV-1 RNA (PCR) log Miscellaneous Test 10/12/18 10/12/18 10/13/18 03:30 13:30 04:00 WBC RBC Hgb Hct RDW Plt Count Seg Neuts % (Manual) Lymphocytes % (Manual) Monocytes % (Manual) Eosinophils % (Manual) Basophils % (Manual) Nucleated RBC % Seg Neutrophils # Man Abs Lymphs (Manual) Lymphocytes # (Manual) Basophils # (Manual) PT INR APTT Heparin Anti-Xa Level POC ABG pH 7.336 L POC ABG pCO2 31.5 L POC ABG pO2 122 H Sodium Potassium Chloride Carbon Dioxide 18 L 17 L BUN 111 H 118 H Creatinine 7.3 H 7.8 H Glucose 102 H POC Glucose Lactic Acid Calcium 7.9 L 7.8 L Phosphorus Magnesium Iron TIBC Ferritin AST ALT Total Creatine Kinase Total Protein Albumin Vitamin B12 Folate TSH Free T4 Urine WBC (Auto) Urine Creatinine Urine Chloride Urine Total Protein CSF VDRL Lymph Enumerat CD4/CD8 Absolute CD3 Count % CD4 Cells Absolute CD4 Count % CD8 Cells Absolute CD19 Count T.pallidum Ab (FTA-ABS) HIV-1 RNA PCR copies/ml HIV-1 RNA (PCR) log Miscellaneous Test 10/13/18 04:05 WBC 1.0 L* RBC 2.68 L Hgb 8.1 L Hct 24.3 L RDW 19.7 H Plt Count Seg Neuts % (Manual) 36.7 L Lymphocytes % (Manual) Monocytes % (Manual) Eosinophils % (Manual) 16.7 H Basophils % (Manual) 16.7 H Nucleated RBC % Seg Neutrophils # Man 0.4 L Abs Lymphs (Manual) Lymphocytes # (Manual) 0.2 L Basophils # (Manual) 0.2 H PT INR APTT Heparin Anti-Xa Level POC ABG pH POC ABG pCO2 POC ABG pO2 Sodium Potassium Chloride Carbon Dioxide BUN Creatinine Glucose POC Glucose Lactic Acid Calcium Phosphorus Magnesium Iron TIBC Ferritin AST ALT Total Creatine Kinase Total Protein Albumin Vitamin B12 Folate TSH Free T4 Urine WBC (Auto) Urine Creatinine Urine Chloride Urine Total Protein CSF VDRL Lymph Enumerat CD4/CD8 Absolute CD3 Count % CD4 Cells Absolute CD4 Count % CD8 Cells Absolute CD19 Count T.pallidum Ab (FTA-ABS) HIV-1 RNA PCR copies/ml HIV-1 RNA (PCR) log Miscellaneous Test Allied health notes reviewed: nursing
[2018-10-13] MEDS: SODIUM CHLORIDE FLUSH SYRINGE 10 ML IV SCH (10:30)
[2018-10-13] MEDS: NACL 0.9% 1000 ML 1,000 ML IV SCH ×2 (10:30→18:34)
[2018-10-13] MEDS: LOPRESSOR PO SCH ×2 (10:35→23:35)
[2018-10-13] MEDS: CORDARONE PO SCH (10:36)
[2018-10-13] MEDS: DIFLUCAN PO SCH (10:36)
[2018-10-13] MEDS: PEPCID PO SCH (10:36)
[2018-10-13] MEDS: KEPPRA PO SCH ×2 (10:36→23:33)
[2018-10-13] MEDS: FOLVITE PO SCH (10:36)
[2018-10-13] MEDS: EMTRIVA PO SCH (10:37)
[2018-10-13] MEDS: MAXIPIME/NS 2 GM/100 ML 2 GM/100 ML BAG IV SCH (10:37)
[2018-10-13] MEDS: VIREAD PO SCH (10:37)
[2018-10-13] MEDS: TIVICAY PO SCH (10:37)
[2018-10-13] MEDS ORDERED: LASIX IV NR (11:00)
--- NOTE | 2018-10-13 17:08 | Progress Note ---
Assessment and Plan Assessment and plan: : Patient is 33 yo initially presented with diarrhea, found to have pneumonia, sepsis, HIV/AIDS(new diagnosis) with CD4 count of 4. He was started on abx for PJP. His mental status has worsened with confusion, lethargy. LP done . He was diagnosed with neurosyphilis. Started on Penicillin. Closest family is sister in [place], and dr. Baltazar spoke to her several times about diagnosis but did not tell her about HIV/AIDS because of patient confidentiality. The patient decompensated on 09/20/18 with acute hypoxemic respiratory failure and worsening toxic metabolic encephalopathy requiring transfer to ICU and intubation. He now remains on mechanical ventilation. The patient was also noted to develop SVT requiring amiodarone drip as well as heparin drip. Severe Sepsis. Etiology secondary to bacterial pneumonia +/- gastroenteritis with newly diagnosed with HIV. Fevers have re-emerged. Repeat blood cx per ID. ARF - Creatinine is trending up this morning was 7.3, could be due to his HIV, sepsis - nephrology is following Acute hypoxemic respiratory failure - Patient has pneumonia and altered mental status - Patient is intubated and on mechanical ventilation Disseminated CMV viremia: - continue IV Ganciclovir 5 mg/kg q12 hrs - Repeat LP was done and no significant change - VDRL reactive Toxic metabolic encephalopathy. 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 Of note, MRI did not show ventriculitis. Neurology re-consultation. Repeat A. fib with RVR. Converted to NSR. cont Amiodarone and metoprolol. Neurosyphilis: CSF VDRL positive, off Ceftriaxone and back on IV Penicillin (will complete 21 days). Diarrhea. Resolved, etiology likely secondary to Giardia. Giardia antigen positive in stool. Completed several days of Flagyl. Oral candidiasis. Fluconazole HIV/AIDS. New Diagnosis. Started on HAART on 09/30, Tenofovir, Emtricitabine + Dolutegravir watch closely for IRIS continue atovaquone and azithromycin prophylaxis Neutropenia. 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 Also probably worse from ganciclovir. r/o disseminated MAC, thus far cultures negative. WBC count this morning was 0.9. Hematology gave granix 2 doses. Prognosis poor. Sister hold off Trach and PEG. I have a long discussion with his sister on the phone. she had a Discussion with multiple doctors and explain everything but she said nobody explain what is going on. I personally discussed with her on the phone for 30 minutes and 16 minutes this morning and despite that she wants specific information about the prognosis, how long is going to be PEG and trach which are difficult to tell exactly but explained the prognosis in general. The high probability of a clinically significant, sudden or life threatening deterioration of the [neurological, respiratory and cardiac] system(s) required my full and direct attention, intervention and personal management. The aggr egate critical care time was [31] minutes. This time is in addition to time spent performing reported procedures but includes the following: [x] Data Review and interpretation [x] Patient assessment and monitoring of vital signs [x] Documentation [x] Medication orders and management History Interval history: Patient was seen and evaluated this morning, no fever overnight, patient is intubated and on mechanical ventilation. Hospitalist Physical - Physical exam Narrative exam: Patient is intubated and on mechanical ventilation. The patient is obese. Vital signs as documented. Head exam is unremarkable. No scleral icterus . Neck is without jugular venous distension, thyromegaly, or carotid bruits. Lungs are clear to auscultation. Cardiac exam reveals regular rate and Rhythm. First and second heart sounds normal. No murmurs, rubs or gallops. Abdominal exam reveals normal bowel sounds, no masses, no organomegaly and no aortic enlargement. Extremities are nonedematous and both femoral and pedal pulses are normal. [employer]ER: Open his eyes. Didn't follow commands. - Constitutional Vitals: Temp Pulse Resp BP Pulse Ox 99.6 F 90 17 115/72 98 10/13/18 12:00 10/13/18 17:00 10/13/18 17:00 10/13/18 17:00 10/13/18 17:00 General appearance: Present: other (orally intubated, minimal response--right side spontaneous movement) Results - Labs CBC & Chem 7: 10/13/18 04:05 10/13/18 04:00 Labs: Laboratory Last Values WBC 1.0 K/mm3 (4.5-11.0) L* 10/13/18 04:05 RBC 2.68 M/mm3 (3.65-5.03) L 10/13/18 04:05 Hgb 8.1 gm/dl (11.8-15.2) L 10/13/18 04:05 Hct 24.3 % (35.5-45.6) L 10/13/18 04:05 MCV 91 fl (84-94) 10/13/18 04:05 MCH 30 pg (28-32) 10/13/18 04:05 MCHC 33 % (32-34) 10/13/18 04:05 RDW 19.7 % (13.2-15.2) H 10/13/18 04:05 Plt Count 193 K/mm3 (140-440) 10/13/18 04:05 [place] % (Auto) Almond Grinder 09/29/18 05:00 Eos % (Auto) Almond Grinder 10/13/18 04:05 Baso % (Auto) Almond Grinder 10/13/18 04:05 Add Manual Diff Complete 10/13/18 04:05 Total Counted 30 10/13/18 04:05 Seg Neutrophils % Almond Grinder 10/10/18 08:35 Seg Neuts % (Manual) 36.7 % (40.0-70.0) L 10/13/18 04:05 Band Neutrophils % 10.0 % 10/13/18 04:05 Lymphocytes % (Manual) 16.7 % (13.4-35.0) 10/13/18 04:05 Reactive Lymphs % (Man) 0 % 10/13/18 04:05 Monocytes % (Manual) 3.3 % (0.0-7.3) 10/13/18 04:05 Eosinophils % (Manual) 16.7 % (0.0-4.3) H 10/13/18 04:05 Basophils % (Manual) 16.7 % (0.0-1.8) H 10/13/18 04:05 Metamyelocytes % 0 % 10/13/18 04:05 Myelocytes % 0 % 10/13/18 04:05 Promyelocytes % 0 % 10/13/18 04:05 Blast Cells % 0 % 10/13/18 04:05 Nucleated RBC % Not Reportable 10/13/18 04:05 Seg Neutrophils # Man 0.4 K/mm3 (1.8-7.7) L 10/13/18 04:05 Band Neutrophils # 0.1 K/mm3 10/13/18 04:05 Abs Lymphs (Manual) 309 cells/uL (850-3900) L 09/13/18 12:29 Lymphocytes # (Manual) 0.2 K/mm3 (1.2-5.4) L 10/13/18 04:05 Abs React Lymphs (Man) 0.0 K/mm3 10/13/18 04:05 Monocytes # (Manual) 0.0 K/mm3 (0.0-0.8) 10/13/18 04:05 Eosinophils # (Manual) 0.2 K/mm3 (0.0-0.4) 10/13/18 04:05 Basophils # (Manual) 0.2 K/mm3 (0.0-0.1) H 10/13/18 04:05 Metamyelocytes # 0.0 K/mm3 10/13/18 04:05 Myelocytes # 0.0 K/mm3 10/13/18 04:05 Promyelocytes # 0.0 K/mm3 10/13/18 04:05 Blast Cells # 0.0 K/mm3 10/13/18 04:05 WBC Morphology Not Reportable 10/13/18 04:05 Hypersegmented Neuts Not Reportable 10/13/18 04:05 Hyposegmented Neuts Not Reportable 10/13/18 04:05 Hypogranular Neuts Not Reportable 10/13/18 04:05 Smudge Cells Not Reportable 10/13/18 04:05 Toxic Granulation Not Reportable 10/13/18 04:05 Toxic Vacuolation Not Reportable 10/13/18 04:05 Dohle Bodies Not Reportable 10/13/18 04:05 Pelger-Huet Anomaly Not Reportable 10/13/18 04:05 Giovanna Rods Not Reportable 10/13/18 04:05 Platelet Estimate Appears normal 10/13/18 04:05 Clumped Platelets Not Reportable 10/13/18 04:05 Plt Clumps, EDTA Not Reportable 10/13/18 04:05 Large Platelets 1+ 10/13/18 04:05 Giant Platelets Few 10/13/18 04:05 Platelet Satelliting Not Reportable 10/13/18 04:05 Plt Morphology Comment Not Reportable 10/13/18 04:05 RBC Morphology Not Reportable 10/13/18 04:05 Dimorphic RBCs Not Reportable 10/13/18 04:05 Polychromasia Not Reportable 10/13/18 04:05 Hypochromasia Few 10/13/18 04:05 Poikilocytosis Not Reportable 10/13/18 04:05 Anisocytosis 2+ 10/13/18 04:05 Microcytosis 1+ 10/13/18 04:05 Macrocytosis Not Reportable 10/13/18 04:05 Spherocytes Not Reportable 10/13/18 04:05 Pappenheimer Bodies Not Reportable 10/13/18 04:05 Sickle Cells Not Reportable 10/13/18 04:05 Target Cells Not Reportable 10/13/18 04:05 Tear Drop Cells Not Reportable 10/13/18 04:05 Ovalocytes 2+ 10/13/18 04:05 Stomatocytes 1+ 09/29/18 05:00 Helmet Cells Few 10/13/18 04:05 [place] Bodies Not Reportable 10/13/18 04:05 [place] Rings Not Reportable 10/13/18 04:05 [place] Cells Not Reportable 10/13/18 04:05 Bite Cells Not Reportable 10/13/18 04:05 Crenated Cell Not Reportable 10/13/18 04:05 Elliptocytes 1+ 10/13/18 04:05 Acanthocytes (Spur) Not Reportable 10/13/18 04:05 Rouleaux Not Reportable 10/13/18 04:05 Hemoglobin C Crystals Not Reportable 10/13/18 04:05 Schistocytes Rare 10/13/18 04:05 Malaria parasites Not Reportable 10/13/18 04:05 Kieran Bodies Not Reportable 10/13/18 04:05 Hem Pathologist Commnt No 10/13/18 04:05 PT 16.0 Sec. (12.2-14.9) H 10/10/18 08:09 INR 1.20 (0.87-1.13) H 10/10/18 08:09 APTT 40.9 Sec. (24.2-36.6) H 09/21/18 15:00 Heparin Anti-Xa Level 0.35 U.I./ml (0.3-0.7) 10/05/18 10:19 POC ABG pH 7.336 (7.35-7.45) L 10/12/18 13:30 POC ABG pCO2 31.5 (35-45) L 10/12/18 13:30 POC ABG pO2 122 (80-105) H 10/12/18 13:30 POC ABG HCO3 16.8 10/12/18 13:30 POC ABG Total CO2 18 10/12/18 13:30 POC ABG O2 Sat 99 10/12/18 13:30 POC ABG Base Excess -9 10/12/18 13:30 FiO2 25 % 10/12/18 13:30 Sodium 144 mmol/L (137-145) 10/13/18 04:00 Potassium 3.9 mmol/L (3.6-5.0) 10/13/18 04:00 Chloride 105.6 mmol/L (98-107) 10/13/18 04:00 Carbon Dioxide 17 mmol/L (22-30) L 10/13/18 04:00 Anion Gap 25 mmol/L 10/13/18 04:00 BUN 118 mg/dL (9-20) H 10/13/18 04:00 Creatinine 7.8 mg/dL (0.8-1.5) H 10/13/18 04:00 Estimated GFR 10 ml/min 10/13/18 04:00 BUN/Creatinine Ratio 15 % 10/13/18 04:00 Glucose 102 mg/dL (75-100) H 10/13/18 04:00 POC Glucose 93 (70-105) 10/13/18 05:20 Lactic Acid 0.90 mmol/L (0.7-2.0) 09/11/18 20:17 Calcium 7.8 mg/dL (8.4-10.2) L 10/13/18 04:00 Phosphorus 3.10 mg/dL (2.5-4.5) D 09/27/18 04:11 Magnesium 1.40 mg/dL (1.7-2.3) L 10/03/18 13:23 Iron 35 ug/dL (49-181) L 10/06/18 09:40 TIBC 157 mcg/dL (250-450) L 10/06/18 09:40 Ferritin 1126.0 ng/mL (13.0-400.0) H 10/06/18 09:40 Total Bilirubin 0.30 mg/dL (0.1-1.2) 10/07/18 04:20 Direct Bilirubin < 0.2 mg/dL (0-0.2) 09/13/18 07:31 AST 30 units/L (5-40) 10/07/18 04:20 ALT 25 units/L (7-56) 10/07/18 04:20 Alkaline Phosphatase 57 units/L (35-129) 10/07/18 04:20 Ammonia 27.0 umol/L (25-60) 10/03/18 13:23 Total Creatine Kinase 113 units/L (55-170) 10/11/18 05:20 CK-MB (CK-2) 2.6 ng/mL (0.0-4.0) 10/11/18 05:20 CK-MB (CK-2) Rel Index 0.5 (0-4) 09/21/18 04:25 NT-Pro-B Natriuret Pep 145.9 pg/mL (0-450) 09/18/18 16:07 Total Protein 5.5 g/dL (6.3-8.2) L 10/07/18 04:20 Albumin 2.2 g/dL (3.9-5) L 10/07/18 04:20 Albumin/Globulin Ratio 0.7 % 10/07/18 04:20 Vitamin B12 934.5 pg/mL (211-911) H 09/16/18 11:41 Folate 6.71 ng/mL (7.3-26.0) L 10/06/18 09:40 TSH 5.190 mlU/mL (0.270-4.200) H 09/18/18 12:46 Free T4 0.75 ng/dL (0.76-1.46) L 09/18/18 12:46 Urine Color Yellow (Yellow) 10/11/18 05:40 Urine Turbidity Slightly-cloudy (Clear) 10/11/18 05:40 Urine pH 5.0 (5.0-7.0) 10/11/18 05:40 Ur Specific Valent[place] 1.012 (1.003-1.030) 10/11/18 05:40 Urine Protein 30 mg/dl mg/dL (Negative) 10/11/18 05:40 Urine Glucose (UA) Neg mg/dL (Negative) 10/11/18 05:40 Urine Ketones Neg mg/dL (Negative) 10/11/18 05:40 Urine Blood Mod (Negative) 10/11/18 05:40 Urine Nitrite Neg (Negative) 10/11/18 05:40 Urine Bilirubin Neg (Negative) 10/11/18 05:40 Urine Urobilinogen < 2.0 mg/dL (<2.0) 10/11/18 05:40 Ur Leukocyte Esterase Neg (Negative) 10/11/18 05:40 Urine WBC (Auto) 8.0 /HPF (0.0-6.0) H 10/11/18 05:40 Urine RBC (Auto) 45.0 /HPF (0.0-6.0) 10/11/18 05:40 U Epithel Cells (Auto) 2.0 /HPF (0-13.0) 10/11/18 05:40 Urine Bacteria (Auto) 1+ /HPF (Negative) 10/11/18 05:40 Urine Mucus Few /HPF 10/11/18 05:40 Urine Creatinine 57.5 mg/dL (0.1-20.0) H 10/11/18 05:40 Protein/Creatinin Ratio 0.77 10/11/18 05:40 Urine Sodium 70 mmol/L 10/11/18 05:40 Urine Chloride 35.1 mmolL (110-250) L 10/11/18 05:40 Urine Total Protein 44 mg/dL (5-11.8) H 10/11/18 05:40 CSF Appearance Bloody 10/10/18 Unknown CSF Color Red 10/10/18 Unknown CSF WBC 10 /mm3 (1-10) 10/10/18 Unknown CSF RBC 80604 /mm3 (0-0) 10/10/18 Unknown CSF Seg Neutrophils 14.0 % (0-6) 10/10/18 Unknown CSF Lymphocytes % 44.0 % (40-80) 10/10/18 Unknown CSF Reactive Lymphs 0 % 10/10/18 Unknown CSF Monocytes % 38.0 % (15-45) 10/10/18 Unknown CSF Eosinophils % 4.0 % 10/10/18 Unknown CSF Basophils 0 % 10/10/18 Unknown CSF Pathologist Review C 10/10/18 Unknown CSF Glucose 47 mg/dL 10/10/18 Unknown CSF Total Protein 84 mg/dL 10/10/18 Unknown CSF VDRL Reactive 1:2 (Nonreactive) H 10/10/18 Unknown Vancomycin Trough 14.3 ug/mL (5.0-20.0) 09/25/18 14:45 Random Vancomycin 10.7 ug/mL (0-40.0) 10/12/18 03:30 Urine Opiates Screen Presumptive negative 09/17/18 15:52 Urine Methadone Screen Presumptive negative 09/17/18 15:52 Ur Barbiturates Screen Presumptive negative 09/17/18 15:52 Ur Phencyclidine Scrn Presumptive negative 09/17/18 15:52 Ur Amphetamines Screen Presumptive negative 09/17/18 15:52 U Benzodiazepines Scrn Presumptive negative 09/17/18 15:52 Urine Cocaine Screen Presumptive negative 09/17/18 15:52 U Marijuana (THC) Screen Presumptive negative 09/17/18 15:52 Drugs of Abuse Note Disclamer 09/17/18 15:52 Lymph Enumerat CD4/CD8 0.01 (0.86-5.00) L 09/13/18 12:29 % CD3 Cells 71 % (57-85) 09/13/18 12:29 Absolute CD3 Count 220 cells/uL (840-3060) L 09/13/18 12:29 % CD4 Cells 1 % (30-61) L 09/13/18 12:29 Absolute CD4 Count 4 cells/uL (490-1740) L 09/13/18 12:29 % CD8 Cells 70 % (12-42) H 09/13/18 12:29 Absolute CD8 Count 216 cells/uL (180-1170) 09/13/18 12:29 % CD19 Cells 17 % (6-29) 09/13/18 12:29 Absolute CD19 Count 54 cells/uL (110-660) L 09/13/18 12:29 RPR Titer 1:16 09/13/18 12:29 RPR Reactive (Nonreactive) 09/13/18 12:29 T.pallidum Ab (FTA-ABS) Reactive (Nonreactive) H 09/14/18 16:34 C. 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 See scanned results 10/03/18 06:12 Hepatitis A IgM Ab Non-reactive (NonReactive) 09/13/18 12:29 Hep Bs Antigen Non-reactive (Negative) 09/13/18 12:29 Hep B Core IgM Ab Non-reactive (NonReactive) 09/13/18 12:29 Hepatitis C Antibody Non-reactive (NonReactive) 09/13/18 12:29 HIV-1 Antibody See scanned result 09/11/18 19:14 HIV-1 RNA PCR copies/ml 99669 Copies/mL H 09/13/18 12:29 HIV-1 RNA (PCR) log 4.71 Log cps/mL H 09/13/18 12:29 HIV-2 Ab (Immunoblot) See scanned result 09/11/18 19:14 HIV 1&2 Antibody Rapid Reactive (Non React) 09/11/18 19:14 HIV P24 Antigen Non react (Non React) 09/11/18 19:14 Influenza A (Rapid) Negative (Negative) 09/13/18 16:05 Influenza A (RT-PCR) Negative (Negative) 09/13/18 16:05 Influenza B (Rapid) Negative (Negative) 09/13/18 16:05 Influenza B (RT-PCR) Negative (Negative) 09/13/18 16:05 Toxoplasma IgG Ab <7.20 IU/mL (<7.20) 09/16/18 12:09 Miscellaneous Test see below 09/21/18 03:55 Nutrition/Malnutrition Assess - Dietary Evaluation Nutrition/Malnutrition Findings: Nutrition Notes Start: 09/12/18 17:45 Freq: Status: Active Protocol: Document 10/07/18 11:44 CP (Rec: 10/07/18 11:51 CP [id number]) Co-Sign 10/07/18 11:44 LP Nutrition Notes Initial or Follow up Reassessment Current Diagnosis Acute Kidney Injury Sepsis Respiratory Failure Other Pertinent Diagnosis HIV, bilat pneu, gastroenteritis, encephalopathy Current Diet TF- Vital High Protein at 70ml /hr Labs/Tests Cr: 0.7 PRO: 5.5 Pertinent Medications Reviewed Height 6 ft Weight 118 kg [place] Body Weight (kg) 80.90 BMI 35.2 Subjective/Other Information Observed TF running at goal ( 70 mL). Per nurse, water flush of 150 mL was administered 08 :00 today. Percent of energy/protein needs met: 93%/91% Burn Absent Trauma Absent #2 Nutrition Diagnosis Inadequate oral intake Diagnosis Progress(for reassessment Continues documentation) #1 Nutrition Diagnosis Malnutrition Diagnosis Progress(for reassessment Continues documentation) Is patient on ventilator? Yes Is Patient Ambulatory and/or Out of Bed No REE-([place]-St. Jeor-confined to bed) 2597.352 Kcal/Kg value to use for calculation 15 Approximate Energy Requirements Using 1770 kcal/Kg Additional Notes Pro needs 2g/kg IBW: 162g/day Fluid needs 1ml/kcal Nutrition Intervention Change Diet Order: Continue TF Nutrition Support: Vital HP at 70ml/hr Kcal 1,680 Protein (gm) 147 Fluid (mL) 1,404 Goal #1 Continue to meet at least 80% of PRO and kcal needs with TF. Follow-Up By: 10/14/18 Additional Comments F/U: Stable TF/TF tolerance
[2018-10-14] MEDS: SODIUM CHLORIDE FLUSH SYRINGE 10 ML IV SCH ×4 (02:38→23:47)
[2018-10-14] MEDS: PROVENTIL IH SCH ×4 (03:36→19:12)
[2018-10-14] MEDS: SYNTHROID PO SCH (05:12)
[2018-10-14] MEDS: HEPARIN SUB-Q SCH ×3 (05:13→22:40)
[2018-10-14] MEDS: ROBINUL PO SCH ×4 (05:17→18:16)
[2018-10-14 06:00] LABS: Hematocrit 25.2 % (35.5-45.6); Hemoglobin 8.2 gm/dl (11.8-15.2); Mean Corpuscular HGB Conc 33 % (32-34); Mean Corpuscular Volume 90 fl (84-94); Platelet Count 214 K/mm3 (140-440); Red Cell Distribution Width 19.7 % (13.2-15.2)
[2018-10-14 06:17] LABS: Calcium 7.8 mg/dL (8.4-10.2)
[2018-10-14 06:37] LABS: Basophils % (Manual) 0 % (0.0-1.8); Monocytes % (Manual) 0 % (0.0-7.3); Total Cells Counted 10
[2018-10-14 06:38] LABS: Anisocytosis 2+; Burr Cells Few; Dohle Bodies Few; Helmet Cells Rare; Large Platelets 1+; Ovalocytes 2+; Target Cells Rare
--- NOTE | 2018-10-14 07:32 | Hem/Onc Progress Note ---
Assessment and Plan 1. Leukopenia. ANC is 0.5. Neutropenic precaution is practical. 2. Anemia. We will investigate. 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 HAART has been started. At this time, there is no fever. 3. Human immunodeficiency virus, on HAART. 4. 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 5. Intubated. 6. On antibiotics for pneumonia. 7. History of ____ that is improved. 8. Looks at you, but does not communicate. 9. History of oral candidiasis. 10. Mention of giardiasis. 11. Encephalopathy. 12. RVR with atrial fibrillation. I will follow the patient during inpatient stay. At this time, his cytopenia is likely secondary to the HIV or the CMV. I will discuss with ID team to see if G-CSF support is an option. 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 - d/w RN reg same - I had spoken to hospitalist - dr reyna - yesterday about this 10/11 - s/p GCSF - not much change in WBC or overall performance - as per RN - plan for trach and PEG floor finisher helper high - nephrology 10/12 - trach - peg not done - as family deciding the GCSF - did not change the WBC 10/13 - wbc 1 - opens eye - non communicative 10/14 - pt moves rt arm - eyes open still on vent - as per info - family is thinking about PEG - trach - they have not consented granix trial for low wbc - Patient Problems (1) Neutropenia Current Visit: Yes Status: Acute Subjective Date of service: 10/14/18 Principal diagnosis: low wbc Interval history: pt still on vent - d/w dr velasquez - family is thinking about trach and PEG Objective - Exam Narrative Exam: non verbal - eyes open - moves rt arm - Constitutional Vitals: Last Vital Signs Temp 99.4 F 10/14/18 03:15 Pulse 89 10/14/18 06:00 Resp 13 10/14/18 06:00 BP 117/68 10/14/18 06:00 Pulse Ox 96 10/14/18 06:00 General appearance: no acute distress Performance status: 4-completely disabled - EENT ENT: other (intubated ) - Respiratory Respiratory effort: Positive: other (on vent) Respiratory: bilateral: diminished - Cardiovascular Heart Sounds: Present: S1 & S2 Extremity abnormal: edema - Gastrointestinal General gastrointestinal: Present: soft Rectal Exam: deferred - Genitourinary Male genitourinary: Present: deferred - Integumentary Integumentary: warm - Musculoskeletal Musculoskeletal: other (moves rt arm) - Neurologic Neurologic: other (eyes open - moves rt arm) - Labs Lab Results: Laboratory Results - last 24 hr 10/10/18 10/10/18 10/13/18 Unknown Unknown 12:04 WBC RBC Hgb Hct MCV MCH MCHC RDW Plt Count Add Manual Diff Total Counted Seg Neuts % (Manual) Band Neutrophils % Lymphocytes % (Manual) Reactive Lymphs % (Man) Monocytes % (Manual) Eosinophils % (Manual) Basophils % (Manual) Metamyelocytes % Myelocytes % Promyelocytes % Blast Cells % Nucleated RBC % Seg Neutrophils # Man Band Neutrophils # Lymphocytes # (Manual) Abs React Lymphs (Man) Monocytes # (Manual) Eosinophils # (Manual) Basophils # (Manual) Metamyelocytes # Myelocytes # Promyelocytes # Blast Cells # WBC Morphology Hypersegmented Neuts Hyposegmented Neuts Hypogranular Neuts Smudge Cells Toxic Granulation Toxic Vacuolation Dohle Bodies Pelger-Huet Anomaly Giovanna Rods Platelet Estimate Clumped Platelets Plt Clumps, EDTA Large Platelets Giant Platelets Platelet Satelliting Plt Morphology Comment RBC Morphology Dimorphic RBCs Polychromasia Hypochromasia Poikilocytosis Anisocytosis Microcytosis Macrocytosis Spherocytes Pappenheimer Bodies Sickle Cells Target Cells Tear Drop Cells Ovalocytes Helmet Cells [place] Bodies [place] Rings [place] Cells Bite Cells Crenated Cell Elliptocytes Acanthocytes (Spur) Rouleaux Hemoglobin C Crystals Schistocytes Malaria parasites Kieran Bodies Hem Pathologist Commnt Sodium Potassium Chloride Carbon Dioxide Anion Gap BUN Creatinine Estimated GFR BUN/Creatinine Ratio Glucose POC Glucose 90 Calcium CSF VDRL Reactive 1:2 H Miscellaneous Test Flexitest 1 H 10/13/18 10/14/18 10/14/18 18:44 00:01 05:20 WBC RBC Hgb Hct MCV MCH MCHC RDW Plt Count Add Manual Diff Total Counted Seg Neuts % (Manual) Band Neutrophils % Lymphocytes % (Manual) Reactive Lymphs % (Man) Monocytes % (Manual) Eosinophils % (Manual) Basophils % (Manual) Metamyelocytes % Myelocytes % Promyelocytes % Blast Cells % Nucleated RBC % Seg Neutrophils # Man Band Neutrophils # Lymphocytes # (Manual) Abs React Lymphs (Man) Monocytes # (Manual) Eosinophils # (Manual) Basophils # (Manual) Metamyelocytes # Myelocytes # Promyelocytes # Blast Cells # WBC Morphology Hypersegmented Neuts Hyposegmented Neuts Hypogranular Neuts Smudge Cells Toxic Granulation Toxic Vacuolation Dohle Bodies Pelger-Huet Anomaly Giovanna Rods Platelet Estimate Clumped Platelets Plt Clumps, EDTA Large Platelets Giant Platelets Platelet Satelliting Plt Morphology Comment RBC Morphology Dimorphic RBCs Polychromasia Hypochromasia Poikilocytosis Anisocytosis Microcytosis Macrocytosis Spherocytes Pappenheimer Bodies Sickle Cells Target Cells Tear Drop Cells Ovalocytes Helmet Cells [place] Bodies [place] Rings [place]ioni Cells Bite Cells Crenated Cell Elliptocytes Acanthocytes (Spur) Rouleaux Hemoglobin C Crystals Schistocytes Malaria parasites Kieran Bodies Hem Pathologist Commnt Sodium Potassium Chloride Carbon Dioxide Anion Gap BUN Creatinine Estimated GFR BUN/Creatinine Ratio Glucose POC Glucose 141 H 134 H 171 H Calcium CSF VDRL Miscellaneous Test 10/14/18 10/14/18 Unknown Unknown WBC 0.5 L* RBC 2.80 L Hgb 8.2 L Hct 25.2 L MCV 90 MCH 29 MCHC 33 RDW 19.7 H Plt Count 214 Add Manual Diff Complete Total Counted 10 Seg Neuts % (Manual) 70.0 Band Neutrophils % 0 Lymphocytes % (Manual) 10.0 L Reactive Lymphs % (Man) 0 Monocytes % (Manual) 0 Eosinophils % (Manual) 10.0 H Basophils % (Manual) 0 Metamyelocytes % 10.0 Myelocytes % 0 Promyelocytes % 0 Blast Cells % 0 Nucleated RBC % Not Reportable Seg Neutrophils # Man 0.4 L Band Neutrophils # 0.0 Lymphocytes # (Manual) 0.1 L Abs React Lymphs (Man) 0.0 Monocytes # (Manual) 0.0 Eosinophils # (Manual) 0.1 Basophils # (Manual) 0.0 Metamyelocytes # 0.1 Myelocytes # 0.0 Promyelocytes # 0.0 Blast Cells # 0.0 WBC Morphology Not Reportable Hypersegmented Neuts Not Reportable Hyposegmented Neuts Not Reportable Hypogranular Neuts Not Reportable Smudge Cells Not Reportable Toxic Granulation Not Reportable Toxic Vacuolation Not Reportable Dohle Bodies Few Pelger-Huet Anomaly Not Reportable Giovanna Rods Not Reportable Platelet Estimate Appears normal Clumped Platelets Not Reportable Plt Clumps, EDTA Not Reportable Large Platelets 1+ Giant Platelets Not Reportable Platelet Satelliting Not Reportable Plt Morphology Comment Not Reportable RBC Morphology Not Reportable Dimorphic RBCs Not Reportable Polychromasia Not Reportable Hypochromasia Not Reportable Poikilocytosis Not Reportable Anisocytosis 2+ Microcytosis Not Reportable Macrocytosis Not Reportable Spherocytes Not Reportable Pappenheimer Bodies Not Reportable Sickle Cells Not Reportable Target Cells Rare Tear Drop Cells Not Reportable Ovalocytes 2+ Helmet Cells Rare [place] Bodies Not Reportable [place] Rings Not Reportable Dioni Cells Few Bite Cells Not Reportable Crenated Cell Not Reportable Elliptocytes 1+ Acanthocytes (Spur) Not Reportable Rouleaux Not Reportable Hemoglobin C Crystals Not Reportable Schistocytes Not Reportable Malaria parasites Not Reportable Kieran Bodies Not Reportable Hem Pathologist Commnt No Sodium 143 Potassium 3.6 Chloride 106.7 Carbon Dioxide 13 L Anion Gap 27 BUN 126 H Creatinine 7.7 H Estimated GFR 10 BUN/Creatinine Ratio 16 Glucose 153 H POC Glucose Calcium 7.8 L CSF VDRL Miscellaneous Test Medications & Allergies - Medications Allergies/Adverse Reactions: Allergies No Known Allergies Allergy (Unverified 09/11/18 17:50) Home Medications: Home Medications Medication Instructions Recorded Confirmed Last Taken Type No Known Home Medications [No 10/02/18 10/02/18 Unknown History Reported Home Medications] Active Medications: Generic Name Dose Route Start Last Admin Trade Name Freq PRN Reason Stop Dose Admin Acetaminophen 650 mg 09/11/18 19:30 10/09/18 16:32 Tylenol PO 650 mg Q4H PRN Administration Pain MILD(1-3)/Fever >100.5/RIVERA Acetaminophen 650 mg 09/21/18 07:39 10/07/18 21:15 Tylenol [place] 650 mg Q4H PRN Administration Fever >101 Albuterol 2.5 mg 09/11/18 19:30 09/16/18 06:09 Proventil IH 2.5 mg Q4HRT PRN Administration Shortness Of Breath Albuterol 2.5 mg 09/20/18 20:00 10/14/18 03:36 Proventil IH 2.5 mg Q6HRT GIA Administration Amiodarone HCl 200 mg 09/27/18 15:00 10/13/18 10:36 Cordarone PO 200 mg BID GIA Administration Lipase/Protease/Amylase 1 each 09/30/18 12:01 Abril Gibbs 10,500 Unit FEEDTUBE PRN PRN For Clogged Feeding Tube Atovaquone 750 mg 09/21/18 10:00 10/13/18 23:36 Mepron PO 750 mg BID GIA Administration Azithromycin 1,200 mg 09/25/18 10:00 10/09/18 10:44 Zithromax PO 1,200 mg Walters GIA Administration Emtricitabine 200 mg 10/13/18 10:00 10/13/18 10:37 Emtriva PO 200 mg Q96H GIA Administration Famotidine 20 mg 10/10/18 10:00 10/13/18 10:36 Pepcid PO 20 mg DAILY GIA Administration Fluconazole 200 mg 10/05/18 12:00 10/13/18 10:36 Diflucan PO 200 mg QDAY GIA Administration Folic Acid 1 mg 10/07/18 10:00 10/13/18 10:36 Folvite PO 1 mg QDAY GIA Administration Furosemide 60 mg 10/14/18 07:25 Lasix IV 10/14/18 07:26 ONCE ONE Glycopyrrolate 2 mg 10/07/18 18:00 10/14/18 06:21 Robinul PO 2 mg Q6HR GIA Administration Heparin Sodium (Porcine) 5,000 unit 10/05/18 14:00 10/14/18 05:13 Heparin SUB-Q 5,000 unit Q8HR GIA Administration Hydrophilic Ointment 1 applic 09/21/18 01:46 09/22/18 03:46 Vaseline Lip Therapy TP 1 applic Q2HR PRN Administration Dry Lips Cefepime HCl 2 gm in 100 mls @ 200 mls/hr 10/10/18 11:30 10/13/18 10:37 Maxipime/Ns 2 Gm/100 Ml IV 200 mls/hr Q24HR GIA Administration Protocol Sodium Chloride 1,000 mls @ 125 mls/hr 10/10/18 16:00 10/13/18 18:34 Nacl 0.9% 1000 Ml IV 125 mls/hr DIRECT [facility]IA Administration Ganciclovir Sodium 150 mg/ 250 mls @ 100 mls/hr 10/12/18 10:00 10/12/18 11:15 Sodium Chloride IV 100 mls/hr MoWeFr GIA Administration Methylprednisolone Sodium 100 mls @ 200 mls/hr 10/14/18 10:00 Succinate 500 mg/ Sodium IV 10/15/18 10:29 Chloride Q24HR GIA Levetiracetam 750 mg 10/12/18 22:00 10/13/18 23:33 Keppra PO 750 mg BID GIA Administration Levothyroxine Sodium 25 mcg 09/19/18 06:00 10/14/18 05:12 Synthroid PO 25 mcg DAILY@0600 GIA Administration Metoprolol Tartrate 12.5 mg 10/10/18 13:00 10/13/18 23:35 Lopressor PO 12.5 mg BID GIA Administration Multi-Ingred Cream/Lotion/Oil/Oint 1 applic 09/21/18 01:46 Artificial Tears Ophth Oint OU Q4HR PRN Dry Eye(s) Ondansetron HCl 4 mg 09/11/18 19:30 Zofran IV Q8H PRN Nausea And Vomiting Scopolamine 1 each 09/18/18 18:00 10/12/18 17:16 Transderm-Scop TD 1 each Q3D GIA Administration Simple Syrup 15 ml 09/30/18 12:01 10/07/18 06:18 Simple Syrup FEEDTUBE 15 ml PRN PRN Administration Hypoglycemia Simple Syrup 30 ml 09/30/18 12:01 Simple Syrup FEEDTUBE PRN PRN Hypoglycemia Sodium Bicarbonate 325 mg 09/30/18 12:01 Sodium Bicarbonate FEEDTUBE PRN PRN For Clogged Feeding Tube Sodium Chloride 10 ml 09/11/18 22:00 10/14/18 02:38 Sodium Chloride Flush Syringe 10 Ml IV Not Given BID GIA Sodium Chloride 10 ml 09/11/18 19:30 Sodium Chloride Flush Syringe 10 Ml IV PRN PRN LINE FLUSH Tenofovir Disoproxil Fumarate 300 mg 10/13/18 10:00 10/13/18 10:37 Viread PO 300 mg Q96H GIA Administration
[2018-10-14] MEDS: CORDARONE PO SCH ×3 (07:58→22:39)
[2018-10-14] MEDS ORDERED: LASIX IV ONE (08:00)
[2018-10-14] MEDS ORDERED: SODIUM BICARBONATE 150 MEQ in D5W 1,000 ML IV SCH (08:30)
--- NOTE | 2018-10-14 08:40 | Progress Note ---
Assessment and Plan - Patient Problems (1) Acute kidney failure with tubular necrosis Current Visit: Yes Status: Acute Plan to address problem: Acute tubular necrosis secondary to sepsis. Kidney function worsening on ganciclovir. Need to initiate dialysis if renal indices still worsening this morning. Labs pending. Follow-up results. Called both contacts and was able to leave a message for 1. Discuss with primary attending (2) Encephalopathy Current Visit: Yes Status: Acute Plan to address problem: Possibly related to neurosyphilis and/or disseminated CMV. Continue treatment for both per the infectious disease. (3) Acute respiratory failure with hypoxia Current Visit: Yes Status: Acute Plan to address problem: Continue ventilatory support per Pulmonary (4) AIDS Current Visit: Yes Status: Suspected Plan to address problem: Being managed by infectious disease (5) Pancytopenia Current Visit: Yes Status: Acute Plan to address problem: HIV-related and/or disseminated CMV (6) Sepsis Current Visit: Yes Status: Acute Plan to address problem: Continue AB per ID. 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 Improved. Follow-up liver function test Subjective Date of service: 10/14/18 Principal diagnosis: low wbc Interval history: Patient seen lying in bed. Intubated and on ventilator. Opens eyes to stimulus but not following commands . Events noted Objective - Exam Narrative Exam: Young -[place] male lying in bed intubated and on ventilator HEENT: NCAT, ETT intact Neck: Supple, no venous distention CVS: S1S2 RRR with no murmur, rub or gallop Chest: Coarse breath sounds with bilateral rhonchi Abdomen: Protuberant, soft, nontender, no organomegaly, bowel sounds are present Extremities: mild edema thighs Genitourinary deferred Neuro: Intubated on ventilator, opens eyes to speech - Vital Signs Vital signs: Vital Signs - 12hr 10/13/18 10/13/18 10/13/18 21:00 21:50 22:00 Temperature Pulse Rate 93 H 88 90 Pulse Rate [ From Monitor] Pulse Rate [ Throughout] Respiratory 20 16 16 Rate Respiratory Rate [ Throughout] Blood Pressure 118/74 118/74 117/70 O2 Sat by Pulse 100 100 98 Oximetry 10/13/18 10/13/18 10/13/18 23:00 23:24 23:35 Temperature 98.8 F Pulse Rate 85 88 Pulse Rate [ From Monitor] Pulse Rate [ Throughout] Respiratory 13 Rate Respiratory Rate [ Throughout] Blood Pressure 116/73 116/73 O2 Sat by Pulse 98 Oximetry 10/13/18 10/14/18 10/14/18 23:45 00:00 01:00 Temperature Pulse Rate 87 89 88 Pulse Rate [ 86 From Monitor] Pulse Rate [ Throughout] Respiratory 22 19 Rate Respiratory Rate [ Throughout] Blood Pressure 120/79 121/74 O2 Sat by Pulse 100 99 97 Oximetry 10/14/18 10/14/18 10/14/18 02:00 03:00 03:15 Temperature 99.4 F Pulse Rate 87 86 Pulse Rate [ From Monitor] Pulse Rate [ Throughout] Respiratory 19 21 Rate Respiratory Rate [ Throughout] Blood Pressure 122/71 122/71 O2 Sat by Pulse 97 100 Oximetry 10/14/18 10/14/18 10/14/18 03:30 03:40 04:00 Temperature Pulse Rate 88 95 H Pulse Rate [ 66 From Monitor] Pulse Rate [ 80 88 Throughout] Respiratory 22 Rate Respiratory 16 20 Rate [ Throughout] Blood Pressure 121/74 O2 Sat by Pulse 100 99 Oximetry 10/14/18 10/14/18 10/14/18 05:00 06:00 07:52 Temperature Pulse Rate 93 H 89 80 Pulse Rate [ From Monitor] Pulse Rate [ 91 H Throughout] Respiratory 21 13 Rate Respiratory 15 Rate [ Throughout] Blood Pressure 115/66 117/68 114/67 O2 Sat by Pulse 99 96 100 Oximetry 10/14/18 10/14/18 10/14/18 08:00 08:24 08:25 Temperature 97.7 F Pulse Rate 90 Pulse Rate [ From Monitor] Pulse Rate [ 91 H Throughout] Respiratory Rate Respiratory 16 Rate [ Throughout] Blood Pressure 114/71 O2 Sat by Pulse 100 Oximetry - Lab 10/14/18 Unknown 10/14/18 Unknown Most recent lab results Calcium 7.8 mg/dL (8.4-10.2) L 10/14/18 Unknown Phosphorus 3.10 mg/dL (2.5-4.5) D 09/27/18 04:11 Magnesium 1.40 mg/dL (1.7-2.3) L 10/03/18 13:23 Urine Creatinine 57.5 mg/dL (0.1-20.0) H 10/11/18 05:40 Urine Sodium 70 mmol/L 10/11/18 05:40 Urine Total Protein 44 mg/dL (5-11.8) H 10/11/18 05:40 Medications & Allergies - Medications Allergies/Adverse Reactions: Allergies No Known Allergies Allergy (Unverified 09/11/18 17:50) Home Medications: Home Medications Medication Instructions Recorded Confirmed Last Taken Type No Known Home Medications [No 10/02/18 10/02/18 Unknown History Reported Home Medications] Active Medications: Generic Name Dose Route Start Last Admin Trade Name Freq PRN Reason Stop Dose Admin Acetaminophen 650 mg 09/11/18 19:30 10/09/18 16:32 Tylenol PO 650 mg Q4H PRN Administration Pain MILD(1-3)/Fever >100.5/RIVERA Acetaminophen 650 mg 09/21/18 07:39 10/07/18 21:15 Tylenol [place] 650 mg Q4H PRN Administration Fever >101 Albuterol 2.5 mg 09/11/18 19:30 09/16/18 06:09 Proventil IH 2.5 mg Q4HRT PRN Administration Shortness Of Breath Albuterol 2.5 mg 09/20/18 20:00 10/14/18 07:52 Proventil IH 2.5 mg Q6HRT GIA Administration Amiodarone HCl 200 mg 09/27/18 15:00 10/14/18 07:58 Cordarone PO Not Given BID [facility] Lipase/Protease/Amylase 1 each 09/30/18 12:01 Pancreazkandice Gibbs 10,500 Unit FEEDTUBE PRN PRN For Clogged Feeding Tube Atovaquone 750 mg 09/21/18 10:00 10/13/18 23:36 Mepron PO 750 mg BID GIA Administration Azithromycin 1,200 mg 09/25/18 10:00 10/09/18 10:44 Zithromax PO 1,200 mg Walters GIA Administration Emtricitabine 200 mg 10/13/18 10:00 10/13/18 10:37 Emtriva PO 200 mg Q96H GIA Administration Famotidine 20 mg 10/10/18 10:00 10/13/18 10:36 Pepcid PO 20 mg DAILY GIA Administration Fluconazole 200 mg 10/05/18 12:00 10/13/18 10:36 Diflucan PO 200 mg QDAY GIA Administration Folic Acid 1 mg 10/07/18 10:00 10/13/18 10:36 Folvite PO 1 mg QDAY GIA Administration Glycopyrrolate 2 mg 10/07/18 18:00 10/14/18 06:21 Robinul PO 2 mg Q6HR GIA Administration Heparin Sodium (Porcine) 5,000 unit 10/05/18 14:00 10/14/18 05:13 Heparin SUB-Q 5,000 unit Q8HR GIA Administration Hydrophilic Ointment 1 applic 09/21/18 01:46 09/22/18 03:46 Vaseline Lip Therapy TP 1 applic Q2HR PRN Administration Dry Lips Cefepime HCl 2 gm in 100 mls @ 200 mls/hr 10/10/18 11:30 10/13/18 10:37 Maxipime/Ns 2 Gm/100 Ml IV 200 mls/hr Q24HR GIA Administration Protocol Ganciclovir Sodium 150 mg/ 250 mls @ 100 mls/hr 10/12/18 10:00 10/12/18 11:15 Sodium Chloride IV 100 mls/hr MoWeFr [facility] Administration Methylprednisolone Sodium 100 mls @ 200 mls/hr 10/14/18 10:00 Succinate 500 mg/ Sodium IV 10/15/18 10:29 Chloride Q24HR [facility] Sodium Bicarbonate 150 meq/ 1,150 mls @ 75 mls/hr 10/14/18 08:30 Dextrose IV DIRECT [facility] Levetiracetam 750 mg 10/12/18 22:00 10/13/18 23:33 Keppra PO 750 mg BID [facility] Administration Levothyroxine Sodium 25 mcg 09/19/18 06:00 10/14/18 05:12 Synthroid PO 25 mcg DAILY@0600 [facility] Administration Metoprolol Tartrate 12.5 mg 10/10/18 13:00 10/13/18 23:35 Lopressor PO 12.5 mg BID [facility] Administration Multi-Ingred Cream/Lotion/Oil/Oint 1 applic 09/21/18 01:46 Artificial Tears Ophth Oint OU Q4HR PRN Dry Eye(s) Ondansetron HCl 4 mg 09/11/18 19:30 Zofran IV Q8H PRN Nausea And Vomiting Scopolamine 1 each 09/18/18 18:00 10/12/18 17:16 Transderm-Scop TD 1 each Q3D GIA Administration Simple Syrup 15 ml 02/15/19 12:01 10/07/18 06:18 Simple Syrup FEEDTUBE 15 ml PRN PRN Administration Hypoglycemia Simple Syrup 30 ml 09/30/18 12:01 Simple Syrup FEEDTUBE PRN PRN Hypoglycemia Sodium Bicarbonate 325 mg 09/30/18 12:01 Sodium Bicarbonate FEEDTUBE PRN PRN For Clogged Feeding Tube Sodium Chloride 10 ml 09/11/18 22:00 10/14/18 02:38 Sodium Chloride Flush Syringe 10 Ml IV Not Given BID GIA Sodium Chloride 10 ml 09/11/18 19:30 Sodium Chloride Flush Syringe 10 Ml IV PRN PRN LINE FLUSH Tbo-Filgrastim 480 mcg 10/14/18 10:00 Granix SUB-Q 10/16/18 23:59 DAILY GIA Tenofovir Disoproxil Fumarate 300 mg 10/13/18 10:00 10/13/18 10:37 Viread PO 300 mg Q96H GIA Administration
--- NOTE | 2018-10-14 10:01 | Progress Note ---
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 He did not use condom consistently. - CD4=4 - VL=50,700 Elevated LFTs: resolved Neutropenia/thrombocytopenia Hypernatremia -VAP bundle addressed -Lung protective strategies -Antimicrobials per ID, HAART per ID - continue supplemental oxygen to keep sats > 90% - continue bronchodilators with pulmonary - continue daily SBT's, at this time mental status precludes liberation from MVS - monitor for drug-drug interactions - continue enteral nutrition as tolerated - PT/OT/ROM exercises as tolerated - mobility protocol for pressure ulcer prevention - continue GI & VTE prophylaxis -Re-culture if any fevers -Replete electrolytes as indicated -Need to have discussions with the sister re tracheostomy and PEG placement vs withdrawal of care. Case management/social work professor will call. If she does want care withdrawn then hospice consult will be placed. - continue other care per attending / other consultants The high probability of a clinically significant, sudden or life threatening deterioration of the [cardiac, respiratory and neurologic] system(s) required my full and direct attention, intervention and personal management. The aggregate critical care time was [30] minutes. This time is in addition to time spent performing reported procedures but includes the following: [x] Data Review and interpretation [x] Patient assessment and monitoring of vital signs [x] Documentation Subjective Date of service: 10/14/18 Principal diagnosis: low wbc Interval history: 33 y/o male with no PMH; admitted on 09/11/2018 due to 4 days-AMS/behavioral c hanges, nausea, voimiting, diarrhea, weight loss and cough: Patient is seen today for: Severe sepsis (present on admission with fever, tachycardia, hypotension and elevated lactate); Acute hypoxemic Respiratory failure; Bilateral pneumonia; Acute encephalopathy (Toxic / Metabolic); Atrial Fibrillation with RVR; HIV-AIDS Seen and examined at bedside; 24hour events reviewed; nursing and respiratory care staff consulted; no adverse overnight events reported to me; resting peacefully in bed; generalized edema with ongoing diarrhea. No further fevers overnight, Oral secretions, awake but not obeying commands. Remains on MVS, PSV 10/6 with tidal volumes of about 350ml, not in any distress Discussed with general surgery, trach pending his sister giving consent No new events overnight Per ID, sister is leaning towards withdrawal of care Objective Vital Signs - 12hr 10/13/18 10/13/18 10/13/18 23:00 23:24 23:35 Temperature 98.8 F Pulse Rate 85 88 Pulse Rate [ From Monitor] Pulse Rate [ Throughout] Respiratory 13 Rate Respiratory Rate [ Throughout] Blood Pressure 116/73 116/73 O2 Sat by Pulse 98 Oximetry 10/13/18 10/14/18 10/14/18 23:45 00:00 01:00 Temperature Pulse Rate 87 89 88 Pulse Rate [ 86 From Monitor] Pulse Rate [ Throughout] Respiratory 22 19 Rate Respiratory Rate [ Throughout] Blood Pressure 120/79 121/74 O2 Sat by Pulse 100 99 97 Oximetry 10/14/18 10/14/18 10/14/18 02:00 03:00 03:15 Temperature 99.4 F Pulse Rate 87 86 Pulse Rate [ From Monitor] Pulse Rate [ Throughout] Respiratory 19 21 Rate Respiratory Rate [ Throughout] Blood Pressure 122/71 122/71 O2 Sat by Pulse 97 100 Oximetry 10/14/18 10/14/18 10/14/18 03:30 03:40 04:00 Temperature Pulse Rate 88 95 H Pulse Rate [ 66 From Monitor] Pulse Rate [ 80 88 Throughout] Respiratory 22 Rate Respiratory 16 20 Rate [ Throughout] Blood Pressure 121/74 O2 Sat by Pulse 100 99 Oximetry 10/14/18 10/14/18 10/14/18 05:00 06:00 07:52 Temperature Pulse Rate 93 H 89 80 Pulse Rate [ From Monitor] Pulse Rate [ 91 H Throughout] Respiratory 21 13 Rate Respiratory 15 Rate [ Throughout] Blood Pressure 115/66 117/68 114/67 O2 Sat by Pulse 99 96 100 Oximetry 10/14/18 10/14/18 10/14/18 08:00 08:24 08:25 Temperature 97.7 F Pulse Rate 90 Pulse Rate [ From Monitor] Pulse Rate [ 91 H Throughout] Respiratory Rate Respiratory 16 Rate [ Throughout] Blood Pressure 114/71 O2 Sat by Pulse 100 Oximetry Constitutional: lethargic, agitated, appears uncomfortable, other (orally intubated ETT at 23cm) Eyes: non-icteric ENT: oropharynx moist, other (ETT 25 cm NIKA) Neck: supple, no lymphadenopathy, other (no thyromegaly) Effort: normal Ascultation: Bilateral: rales, rhonchi (scant) Percussion: Bilateral: not dull Cardiovascular: regular rate and rhythm, other (S1,S2, no murmurs, gallps or rubs) Gastrointestinal: normoactive bowel sounds, soft, non-tender, non-distended Integumentary: rash Extremities: no cyanosis, pulses normal, no ischemia or petechiae, edema Neurologic: non-focal exam (grossly), pupils equal and round, other (Left sided hemiparesis) Psychiatric: other (unable to assess) CBC and BMP: 10/14/18 Unknown 10/14/18 Unknown ABG, PT/INR, D-dimer: ABG POC ABG pH 7.336 (7.35-7.45) L 10/12/18 13:30 POC ABG pCO2 31.5 (35-45) L 10/12/18 13:30 POC ABG pO2 122 (80-105) H 10/12/18 13:30 POC ABG HCO3 16.8 10/12/18 13:30 POC ABG Total CO2 18 10/12/18 13:30 POC ABG O2 Sat 99 10/12/18 13:30 PT/INR, D-dimer PT 16.0 Sec. (12.2-14.9) H 10/10/18 08:09 INR 1.20 (0.87-1.13) H 10/10/18 08:09 Abnormal lab findings: Abnormal Labs 09/11/18 09/11/18 09/11/18 18:00 18:00 18:00 WBC 1.9 L* RBC Hgb Hct RDW Plt Count 130 L Seg Neuts % (Manual) Lymphocytes % (Manual) Monocytes % (Manual) 16.0 H Eosinophils % (Manual) Basophils % (Manual) Nucleated RBC % Seg Neutrophils # Man 0.9 L Abs Lymphs (Manual) Lymphocytes # (Manual) 0.5 L Basophils # (Manual) PT INR APTT Heparin Anti-Xa Level POC ABG pH POC ABG pCO2 POC ABG pO2 Sodium 131 L Potassium Chloride Carbon Dioxide 17 L BUN 21 H Creatinine Glucose 126 H POC Glucose Lactic Acid 2.60 H* Calcium 8.1 L Phosphorus Magnesium Iron TIBC Ferritin AST 123 H ALT 115 H Total Creatine Kinase Total Protein Albumin 3.0 L Vitamin B12 Folate TSH Free T4 Urine WBC (Auto) Urine Creatinine Urine Chloride Urine Total Protein CSF VDRL Lymph Enumerat CD4/CD8 Absolute CD3 Count % CD4 Cells Absolute CD4 Count % CD8 Cells Absolute CD19 Count T.pallidum Ab (FTA-ABS) HIV-1 RNA PCR copies/ml HIV-1 RNA (PCR) log Miscellaneous Test 09/11/18 09/13/18 09/13/18 19:01 04:28 07:31 WBC 2.0 L RBC Hgb Hct RDW Plt Count 116 L Seg Neuts % (Manual) Lymphocytes % (Manual) Monocytes % (Manual) 8.0 H Eosinophils % (Manual) Basophils % (Manual) Nucleated RBC % Seg Neutrophils # Man 1.0 L Abs Lymphs (Manual) Lymphocytes # (Manual) 0.5 L Basophils # (Manual) PT INR APTT Heparin Anti-Xa Level POC ABG pH POC ABG pCO2 POC ABG pO2 Sodium Potassium Chloride 110.4 H Carbon Dioxide 19 L BUN Creatinine Glucose POC Glucose Lactic Acid 3.70 H* Calcium 7.9 L Phosphorus Magnesium Iron TIBC Ferritin AST ALT Total Creatine Kinase Total Protein Albumin Vitamin B12 Folate TSH Free T4 Urine WBC (Auto) Urine Creatinine Urine Chloride Urine Total Protein CSF VDRL Lymph Enumerat CD4/CD8 Absolute CD3 Count % CD4 Cells Absolute CD4 Count % CD8 Cells Absolute CD19 Count T.pallidum Ab (FTA-ABS) HIV-1 RNA PCR copies/ml HIV-1 RNA (PCR) log Miscellaneous Test 09/13/18 09/13/18 09/13/18 07:31 12:29 12:29 WBC RBC Hgb Hct RDW Plt Count Seg Neuts % (Manual) Lymphocytes % (Manual) Monocytes % (Manual) Eosinophils % (Manual) Basophils % (Manual) Nucleated RBC % Seg Neutrophils # Man Abs Lymphs (Manual) 309 L Lymphocytes # (Manual) Basophils # (Manual) PT INR APTT Heparin Anti-Xa Level POC ABG pH POC ABG pCO2 POC ABG pO2 Sodium Potassium Chloride Carbon Dioxide BUN Creatinine Glucose POC Glucose Lactic Acid Calcium Phosphorus Magnesium Iron TIBC Ferritin AST 70 H ALT 68 H Total Creatine Kinase Total Protein Albumin 2.5 L Vitamin B12 Folate TSH Free T4 Urine WBC (Auto) Urine Creatinine Urine Chloride Urine Total Protein CSF VDRL Lymph Enumerat CD4/CD8 0.01 L Absolute CD3 Count 220 L % CD4 Cells 1 L Absolute CD4 Count 4 L % CD8 Cells 70 H Absolute CD19 Count 54 L T.pallidum Ab (FTA-ABS) HIV-1 RNA PCR copies/ml 39959 H HIV-1 RNA (PCR) log 4.71 H Miscellaneous Test 09/13/18 09/14/18 09/14/18 12:29 07:17 16:34 WBC RBC Hgb Hct RDW Plt Count Seg Neuts % (Manual) Lymphocytes % (Manual) Monocytes % (Manual) Eosinophils % (Manual) Basophils % (Manual) Nucleated RBC % Seg Neutrophils # Man Abs Lymphs (Manual) Lymphocytes # (Manual) Basophils # (Manual) PT INR APTT Heparin Anti-Xa Level POC ABG pH POC ABG pCO2 POC ABG pO2 Sodium Potassium 3.4 L Chloride Carbon Dioxide 18 L BUN Creatinine Glucose 104 H POC Glucose Lactic Acid Calcium 7.6 L Phosphorus Magnesium Iron TIBC Ferritin AST 49 H ALT Total Creatine Kinase Total Protein Albumin 2.5 L Vitamin B12 Folate TSH Free T4 Urine WBC (Auto) Urine Creatinine Urine Chloride Urine Total Protein CSF VDRL Lymph Enumerat CD4/CD8 Absolute CD3 Count % CD4 Cells Absolute CD4 Count % CD8 Cells Absolute CD19 Count T.pallidum Ab (FTA-ABS) Reactive H HIV-1 RNA PCR copies/ml HIV-1 RNA (PCR) log Miscellaneous Test Flexitest 1 H 09/15/18 09/15/18 09/15/18 05:05 05:05 Unknown WBC 1.6 L* RBC Hgb 10.4 L Hct 31.1 L D RDW Plt Count 113 L Seg Neuts % (Manual) Lymphocytes % (Manual) Monocytes % (Manual) Eosinophils % (Manual) Basophils % (Manual) Nucleated RBC % Seg Neutrophils # Man Abs Lymphs (Manual) Lymphocytes # (Manual) Basophils # (Manual) PT INR APTT Heparin Anti-Xa Level POC ABG pH POC ABG pCO2 POC ABG pO2 Sodium Potassium Chloride 107.9 H Carbon Dioxide 18 L BUN 6 L Creatinine Glucose POC Glucose Lactic Acid Calcium 7.4 L Phosphorus Magnesium Iron TIBC Ferritin AST ALT Total Creatine Kinase Total Protein Albumin Vitamin B12 Folate TSH Free T4 Urine WBC (Auto) Urine Creatinine Urine Chloride Urine Total Protein CSF VDRL Reactive 1:8 H Lymph Enumerat CD4/CD8 Absolute CD3 Count % CD4 Cells Absolute CD4 Count % CD8 Cells Absolute CD19 Count T.pallidum Ab (FTA-ABS) HIV-1 RNA PCR copies/ml HIV-1 RNA (PCR) log Miscellaneous Test 09/16/18 09/16/18 09/16/18 06:55 11:41 11:41 WBC 2.8 L RBC Hgb 10.9 L Hct 33.5 L RDW Plt Count 135 L Seg Neuts % (Manual) Lymphocytes % (Manual) Monocytes % (Manual) Eosinophils % (Manual) Basophils % (Manual) Nucleated RBC % Seg Neutrophils # Man Abs Lymphs (Manual) Lymphocytes # (Manual) Basophils # (Manual) PT INR APTT Heparin Anti-Xa Level POC ABG pH POC ABG pCO2 POC ABG pO2 Sodium Potassium Chloride Carbon Dioxide BUN Creatinine Glucose POC Glucose Lactic Acid Calcium Phosphorus Magnesium Iron TIBC Ferritin AST ALT Total Creatine Kinase Total Protein Albumin Vitamin B12 Folate TSH 4.210 H Free T4 0.72 L Urine WBC (Auto) Urine Creatinine Urine Chloride Urine Total Protein CSF VDRL Lymph Enumerat CD4/CD8 Absolute CD3 Count % CD4 Cells Absolute CD4 Count % CD8 Cells Absolute CD19 Count T.pallidum Ab (FTA-ABS) HIV-1 RNA PCR copies/ml HIV-1 RNA (PCR) log Miscellaneous Test 09/16/18 09/16/18 09/17/18 11:41 15:43 05:13 WBC 2.0 L RBC Hgb 10.9 L Hct 32.7 L RDW Plt Count Seg Neuts % (Manual) Lymphocytes % (Manual) Monocytes % (Manual) Eosinophils % (Manual) Basophils % (Manual) Nucleated RBC % Seg Neutrophils # Man Abs Lymphs (Manual) Lymphocytes # (Manual) Basophils # (Manual) PT INR APTT Heparin Anti-Xa Level POC ABG pH POC ABG pCO2 29.3 L POC ABG pO2 70 L Sodium Potassium Chloride Carbon Dioxide BUN Creatinine Glucose POC Glucose Lactic Acid Calcium Phosphorus Magnesium Iron TIBC Ferritin AST ALT Total Creatine Kinase Total Protein Albumin Vitamin B12 934.5 H Folate TSH Free T4 Urine WBC (Auto) Urine Creatinine Urine Chloride Urine Total Protein CSF VDRL Lymph Enumerat CD4/CD8 Absolute CD3 Count % CD4 Cells Absolute CD4 Count % CD8 Cells Absolute CD19 Count T.pallidum Ab (FTA-ABS) HIV-1 RNA PCR copies/ml HIV-1 RNA (PCR) log Miscellaneous Test 09/17/18 09/17/18 09/18/18 05:13 21:57 12:46 WBC RBC Hgb Hct RDW Plt Count Seg Neuts % (Manual) Lymphocytes % (Manual) Monocytes % (Manual) Eosinophils % (Manual) Basophils % (Manual) Nucleated RBC % Seg Neutrophils # Man Abs Lymphs (Manual) Lymphocytes # (Manual) Basophils # (Manual) PT INR APTT Heparin Anti-Xa Level POC ABG pH POC ABG pCO2 POC ABG pO2 Sodium Potassium Chloride 107.2 H Carbon Dioxide 21 L BUN 3 L Creatinine 0.7 L Glucose POC Glucose 108 H Lactic Acid Calcium 7.9 L Phosphorus Magnesium Iron TIBC Ferritin AST ALT Total Creatine Kinase Total Protein 6.1 L Albumin 2.6 L Vitamin B12 Folate TSH Free T4 0.75 L Urine WBC (Auto) Urine Creatinine Urine Chloride Urine Total Protein CSF VDRL Lymph Enumerat CD4/CD8 Absolute CD3 Count % CD4 Cells Absolute CD4 Count % CD8 Cells Absolute CD19 Count T.pallidum Ab (FTA-ABS) HIV-1 RNA PCR copies/ml HIV-1 RNA (PCR) log Miscellaneous Test 09/18/18 09/19/18 09/19/18 12:46 04:57 04:57 WBC 2.1 L RBC Hgb 11.4 L Hct 34.2 L RDW Plt Count Seg Neuts % (Manual) Lymphocytes % (Manual) Monocytes % (Manual) Eosinophils % (Manual) Basophils % (Manual) Nucleated RBC % Seg Neutrophils # Man Abs Lymphs (Manual) Lymphocytes # (Manual) Basophils # (Manual) PT INR APTT Heparin Anti-Xa Level POC ABG pH POC ABG pCO2 POC ABG pO2 Sodium Potassium Chloride Carbon Dioxide 19 L BUN 6 L Creatinine Glucose POC Glucose Lactic Acid Calcium 7.9 L Phosphorus Magnesium Iron TIBC Ferritin AST ALT Total Creatine Kinase Total Protein Albumin Vitamin B12 Folate TSH 5.190 H Free T4 Urine WBC (Auto) Urine Creatinine Urine Chloride Urine Total Protein CSF VDRL Lymph Enumerat CD4/CD8 Absolute CD3 Count % CD4 Cells Absolute CD4 Count % CD8 Cells Absolute CD19 Count T.pallidum Ab (FTA-ABS) HIV-1 RNA PCR copies/ml HIV-1 RNA (PCR) log Miscellaneous Test 09/19/18 09/19/18 09/20/18 15:00 15:00 05:33 WBC RBC Hgb Hct RDW Plt Count Seg Neuts % (Manual) Lymphocytes % (Manual) Monocytes % (Manual) Eosinophils % (Manual) Basophils % (Manual) Nucleated RBC % Seg Neutrophils # Man Abs Lymphs (Manual) Lymphocytes # (Manual) Basophils # (Manual) PT INR APTT Heparin Anti-Xa Level POC ABG pH POC ABG pCO2 POC ABG pO2 Sodium 136 L Potassium Chloride Carbon Dioxide 19 L BUN 7 L Creatinine Glucose POC Glucose Lactic Acid Calcium Phosphorus Magnesium Iron TIBC Ferritin AST ALT Total Creatine Kinase Total Protein Albumin Vitamin B12 Folate TSH Free T4 Urine WBC (Auto) Urine Creatinine Urine Chloride Urine Total Protein CSF VDRL Reactive 1:4 H Lymph Enumerat CD4/CD8 Absolute CD3 Count % CD4 Cells Absolute CD4 Count % CD8 Cells Absolute CD19 Count T.pallidum Ab (FTA-ABS) HIV-1 RNA PCR copies/ml HIV-1 RNA (PCR) log Miscellaneous Test Flexitest 1 H 09/20/18 09/21/18 09/21/18 06:52 01:06 03:49 WBC 2.5 L RBC Hgb Hct RDW Plt Count Seg Neuts % (Manual) Lymphocytes % (Manual) Monocytes % (Manual) Eosinophils % (Manual) Basophils % (Manual) Nucleated RBC % Seg Neutrophils # Man Abs Lymphs (Manual) Lymphocytes # (Manual) Basophils # (Manual) PT INR APTT Heparin Anti-Xa Level POC ABG pH 7.159 L POC ABG pCO2 32.9 L 70.0 H POC ABG pO2 62 L 254 H Sodium Potassium Chloride Carbon Dioxide BUN Creatinine Glucose POC Glucose Lactic Acid Calcium Phosphorus Magnesium Iron TIBC Ferritin AST ALT Total Creatine Kinase Total Protein Albumin Vitamin B12 Folate TSH Free T4 Urine WBC (Auto) Urine Creatinine Urine Chloride Urine Total Protein CSF VDRL Lymph Enumerat CD4/CD8 Absolute CD3 Count % CD4 Cells Absolute CD4 Count % CD8 Cells Absolute CD19 Count T.pallidum Ab (FTA-ABS) HIV-1 RNA PCR copies/ml HIV-1 RNA (PCR) log Miscellaneous Test 09/21/18 09/21/18 09/21/18 04:15 04:15 04:25 WBC 3.1 L RBC Hgb 11.6 L Hct RDW Plt Count Seg Neuts % (Manual) Lymphocytes % (Manual) Monocytes % (Manual) 12.0 H Eosinophils % (Manual) Basophils % (Manual) Nucleated RBC % Seg Neutrophils # Man 1.6 L Abs Lymphs (Manual) Lymphocytes # (Manual) 0.5 L Basophils # (Manual) PT INR APTT Heparin Anti-Xa Level POC ABG pH POC ABG pCO2 POC ABG pO2 Sodium Potassium 6.1 H* D Chloride Carbon Dioxide 19 L BUN Creatinine Glucose 108 H POC Glucose Lactic Acid Calcium Phosphorus Magnesium Iron TIBC Ferritin AST ALT Total Creatine Kinase 685 H Total Protein Albumin Vitamin B12 Folate TSH Free T4 Urine WBC (Auto) Urine Creatinine Urine Chloride Urine Total Protein CSF VDRL Lymph Enumerat CD4/CD8 Absolute CD3 Count % CD4 Cells Absolute CD4 Count % CD8 Cells Absolute CD19 Count T.pallidum Ab (FTA-ABS) HIV-1 RNA PCR copies/ml HIV-1 RNA (PCR) log Miscellaneous Test 09/21/18 09/21/18 09/21/18 09:59 10:07 11:00 WBC RBC Hgb 11.7 L Hct RDW Plt Count Seg Neuts % (Manual) Lymphocytes % (Manual) Monocytes % (Manual) Eosinophils % (Manual) Basophils % (Manual) Nucleated RBC % Seg Neutrophils # Man Abs Lymphs (Manual) Lymphocytes # (Manual) Basophils # (Manual) PT INR APTT Heparin Anti-Xa Level POC ABG pH 7.301 L POC ABG pCO2 POC ABG pO2 109 H Sodium Potassium 6.5 H* Chloride Carbon Dioxide 18 L BUN Creatinine 2.1 H D Glucose POC Glucose Lactic Acid Calcium 8.1 L Phosphorus Magnesium Iron TIBC Ferritin AST 94 H ALT Total Creatine Kinase Total Protein Albumin 2.8 L Vitamin B12 Folate TSH Free T4 Urine WBC (Auto) Urine Creatinine Urine Chloride Urine Total Protein CSF VDRL Lymph Enumerat CD4/CD8 Absolute CD3 Count % CD4 Cells Absolute CD4 Count % CD8 Cells Absolute CD19 Count T.pallidum Ab (FTA-ABS) HIV-1 RNA PCR copies/ml HIV-1 RNA (PCR) log Miscellaneous Test 09/21/18 09/21/18 09/21/18 15:00 21:54 21:54 WBC RBC Hgb Hct RDW Plt Count Seg Neuts % (Manual) Lymphocytes % (Manual) Monocytes % (Manual) Eosinophils % (Manual) Basophils % (Manual) Nucleated RBC % Seg Neutrophils # Man Abs Lymphs (Manual) Lymphocytes # (Manual) Basophils # (Manual) PT 19.9 H INR 1.65 H APTT 40.9 H Heparin Anti-Xa Level 0.98 H POC ABG pH POC ABG pCO2 POC ABG pO2 Sodium Potassium 5.2 H Chloride Carbon Dioxide BUN Creatinine Glucose POC Glucose Lactic Acid Calcium Phosphorus Magnesium Iron TIBC Ferritin AST ALT Total Creatine Kinase Total Protein Albumin Vitamin B12 Folate TSH Free T4 Urine WBC (Auto) Urine Creatinine Urine Chloride Urine Total Protein CSF VDRL Lymph Enumerat CD4/CD8 Absolute CD3 Count % CD4 Cells Absolute CD4 Count % CD8 Cells Absolute CD19 Count T.pallidum Ab (FTA-ABS) HIV-1 RNA PCR copies/ml HIV-1 RNA (PCR) log Miscellaneous Test 09/21/18 09/22/18 09/22/18 22:57 03:01 05:27 WBC RBC Hgb Hct RDW Plt Count Seg Neuts % (Manual) Lymphocytes % (Manual) Monocytes % (Manual) Eosinophils % (Manual) Basophils % (Manual) Nucleated RBC % Seg Neutrophils # Man Abs Lymphs (Manual) Lymphocytes # (Manual) Basophils # (Manual) PT INR APTT Heparin Anti-Xa Level POC ABG pH POC ABG pCO2 32.7 L POC ABG pO2 Sodium Potassium Chloride Carbon Dioxide BUN Creatinine Glucose POC Glucose 124 H 128 H Lactic Acid Calcium Phosphorus Magnesium Iron TIBC Ferritin AST ALT Total Creatine Kinase Total Protein Albumin Vitamin B12 Folate TSH Free T4 Urine WBC (Auto) Urine Creatinine Urine Chloride Urine Total Protein CSF VDRL Lymph Enumerat CD4/CD8 Absolute CD3 Count % CD4 Cells Absolute CD4 Count % CD8 Cells Absolute CD19 Count T.pallidum Ab (FTA-ABS) HIV-1 RNA PCR copies/ml HIV-1 RNA (PCR) log Miscellaneous Test 09/22/18 09/22/18 09/22/18 07:00 07:00 11:32 WBC 1.8 L* RBC 3.59 L Hgb 10.1 L Hct 30.8 L RDW Plt Count 126 L Seg Neuts % (Manual) Lymphocytes % (Manual) Monocytes % (Manual) Eosinophils % (Manual) Basophils % (Manual) Nucleated RBC % Seg Neutrophils # Man Abs Lymphs (Manual) Lymphocytes # (Manual) Basophils # (Manual) PT INR APTT Heparin Anti-Xa Level POC ABG pH POC ABG pCO2 POC ABG pO2 Sodium Potassium Chloride Carbon Dioxide BUN 27 H Creatinine 2.0 H Glucose 128 H POC Glucose 123 H Lactic Acid Calcium 6.9 L Phosphorus Magnesium Iron TIBC Ferritin AST ALT Total Creatine Kinase Total Protein Albumin Vitamin B12 Folate TSH Free T4 Urine WBC (Auto) Urine Creatinine Urine Chloride Urine Total Protein CSF VDRL Lymph Enumerat CD4/CD8 Absolute CD3 Count % CD4 Cells Absolute CD4 Count % CD8 Cells Absolute CD19 Count T.pallidum Ab (FTA-ABS) HIV-1 RNA PCR copies/ml HIV-1 RNA (PCR) log Miscellaneous Test 09/22/18 09/22/18 09/22/18 15:52 18:18 23:52 WBC RBC Hgb Hct RDW Plt Count Seg Neuts % (Manual) Lymphocytes % (Manual) Monocytes % (Manual) Eosinophils % (Manual) Basophils % (Manual) Nucleated RBC % Seg Neutrophils # Man Abs Lymphs (Manual) Lymphocytes # (Manual) Basophils # (Manual) PT INR APTT Heparin Anti-Xa Level POC ABG pH POC ABG pCO2 48.7 H POC ABG pO2 Sodium Potassium Chloride Carbon Dioxide BUN Creatinine Glucose POC Glucose 110 H 124 H Lactic Acid Calcium Phosphorus Magnesium Iron TIBC Ferritin AST ALT Total Creatine Kinase Total Protein Albumin Vitamin B12 Folate TSH Free T4 Urine WBC (Auto) Urine Creatinine Urine Chloride Urine Total Protein CSF VDRL Lymph Enumerat CD4/CD8 Absolute CD3 Count % CD4 Cells Absolute CD4 Count % CD8 Cells Absolute CD19 Count T.pallidum Ab (FTA-ABS) HIV-1 RNA PCR copies/ml HIV-1 RNA (PCR) log Miscellaneous Test 09/23/18 09/23/18 09/23/18 04:10 05:55 05:55 WBC RBC Hgb 10.0 L Hct 30.3 L RDW Plt Count 117 L Seg Neuts % (Manual) Lymphocytes % (Manual) Monocytes % (Manual) Eosinophils % (Manual) Basophils % (Manual) Nucleated RBC % Seg Neutrophils # Man Abs Lymphs (Manual) Lymphocytes # (Manual) Basophils # (Manual) PT INR APTT Heparin Anti-Xa Level 0.26 L POC ABG pH POC ABG pCO2 POC ABG pO2 144 H Sodium Potassium Chloride Carbon Dioxide BUN Creatinine Glucose POC Glucose Lactic Acid Calcium Phosphorus Magnesium Iron TIBC Ferritin AST ALT Total Creatine Kinase Total Protein Albumin Vitamin B12 Folate TSH Free T4 Urine WBC (Auto) Urine Creatinine Urine Chloride Urine Total Protein CSF VDRL Lymph Enumerat CD4/CD8 Absolute CD3 Count % CD4 Cells Absolute CD4 Count % CD8 Cells Absolute CD19 Count T.pallidum Ab (FTA-ABS) HIV-1 RNA PCR copies/ml HIV-1 RNA (PCR) log Miscellaneous Test 09/23/18 09/23/18 09/23/18 08:10 08:10 23:57 WBC 1.3 L* RBC 3.53 L Hgb 9.9 L Hct 30.0 L RDW Plt Count 119 L Seg Neuts % (Manual) Lymphocytes % (Manual) Monocytes % (Manual) Eosinophils % (Manual) Basophils % (Manual) Nucleated RBC % Seg Neutrophils # Man Abs Lymphs (Manual) Lymphocytes # (Manual) Basophils # (Manual) PT INR APTT Heparin Anti-Xa Level POC ABG pH POC ABG pCO2 POC ABG pO2 Sodium Potassium Chloride Carbon Dioxide BUN Creatinine Glucose 122 H POC Glucose 115 H Lactic Acid Calcium 6.9 L Phosphorus Magnesium Iron TIBC Ferritin AST ALT Total Creatine Kinase Total Protein Albumin Vitamin B12 Folate TSH Free T4 Urine WBC (Auto) Urine Creatinine Urine Chloride Urine Total Protein CSF VDRL Lymph Enumerat CD4/CD8 Absolute CD3 Count % CD4 Cells Absolute CD4 Count % CD8 Cells Absolute CD19 Count T.pallidum Ab (FTA-ABS) HIV-1 RNA PCR copies/ml HIV-1 RNA (PCR) log Miscellaneous Test 09/24/18 09/24/18 09/24/18 12:04 14:42 18:10 WBC RBC Hgb Hct RDW Plt Count Seg Neuts % (Manual) Lymphocytes % (Manual) Monocytes % (Manual) Eosinophils % (Manual) Basophils % (Manual) Nucleated RBC % Seg Neutrophils # Man Abs Lymphs (Manual) Lymphocytes # (Manual) Basophils # (Manual) PT INR APTT Heparin Anti-Xa Level 0.76 H POC ABG pH POC ABG pCO2 POC ABG pO2 Sodium Potassium Chloride Carbon Dioxide BUN Creatinine Glucose POC Glucose 111 H 138 H Lactic Acid Calcium Phosphorus Magnesium Iron TIBC Ferritin AST ALT Total Creatine Kinase Total Protein Albumin Vitamin B12 Folate TSH Free T4 Urine WBC (Auto) Urine Creatinine Urine Chloride Urine Total Protein CSF VDRL Lymph Enumerat CD4/CD8 Absolute CD3 Count % CD4 Cells Absolute CD4 Count % CD8 Cells Absolute CD19 Count T.pallidum Ab (FTA-ABS) HIV-1 RNA PCR copies/ml HIV-1 RNA (PCR) log Miscellaneous Test 09/25/18 09/25/1819 03:45 04:24 14:20 WBC RBC Hgb 9.7 L Hct 29.4 L RDW Plt Count 104 L Seg Neuts % (Manual) Lymphocytes % (Manual) Monocytes % (Manual) Eosinophils % (Manual) Basophils % (Manual) Nucleated RBC % Seg Neutrophils # Man Abs Lymphs (Manual) Lymphocytes # (Manual) Basophils # (Manual) PT INR APTT Heparin Anti-Xa Level POC ABG pH 7.460 H POC ABG pCO2 32.9 L POC ABG pO2 Sodium Potassium 3.5 L Chloride 110.3 H Carbon Dioxide BUN Creatinine Glucose 105 H POC Glucose Lactic Acid Calcium 6.7 L Phosphorus Magnesium Iron TIBC Ferritin AST 633 H ALT 481 H Total Creatine Kinase Total Protein 4.8 L D Albumin 1.9 L Vitamin B12 Folate TSH Free T4 Urine WBC (Auto) Urine Creatinine Urine Chloride Urine Total Protein CSF VDRL Lymph Enumerat CD4/CD8 Absolute CD3 Count % CD4 Cells Absolute CD4 Count % CD8 Cells Absolute CD19 Count T.pallidum Ab (FTA-ABS) HIV-1 RNA PCR copies/ml HIV-1 RNA (PCR) log Miscellaneous Test 09/26/18 09/26/18 09/26/18 06:15 06:15 10:43 WBC 1.2 L* RBC 3.32 L Hgb 9.2 L Hct 28.6 L RDW Plt Count 97 L Seg Neuts % (Manual) 24.0 L Lymphocytes % (Manual) 43.0 H Monocytes % (Manual) 19.0 H Eosinophils % (Manual) 8.0 H Basophils % (Manual) 2.0 H Nucleated RBC % 3.0 H Seg Neutrophils # Man 0.0 L Abs Lymphs (Manual) Lymphocytes # (Manual) 0.0 L Basophils # (Manual) PT INR APTT Heparin Anti-Xa Level POC ABG pH 7.459 H POC ABG pCO2 POC ABG pO2 141 H Sodium Potassium Chloride 112.8 H Carbon Dioxide BUN Creatinine Glucose 110 H POC Glucose Lactic Acid Calcium 7.0 L Phosphorus 0.90 L* Magnesium Iron TIBC Ferritin AST 362 H ALT 360 H Total Creatine Kinase Total Protein 4.9 L Albumin 1.5 L Vitamin B12 Folate TSH Free T4 Urine WBC (Auto) Urine Creatinine Urine Chloride Urine Total Protein CSF VDRL Lymph Enumerat CD4/CD8 Absolute CD3 Count % CD4 Cells Absolute CD4 Count % CD8 Cells Absolute CD19 Count T.pallidum Ab (FTA-ABS) HIV-1 RNA PCR copies/ml HIV-1 RNA (PCR) log Miscellaneous Test 09/26/18 09/27/18 09/28/18 13:56 04:11 07:49 WBC RBC Hgb 9.1 L Hct 29.1 L RDW Plt Count 96 L Seg Neuts % (Manual) Lymphocytes % (Manual) Monocytes % (Manual) Eosinophils % (Manual) Basophils % (Manual) Nucleated RBC % Seg Neutrophils # Man Abs Lymphs (Manual) Lymphocytes # (Manual) Basophils # (Manual) PT INR APTT Heparin Anti-Xa Level POC ABG pH POC ABG pCO2 POC ABG pO2 Sodium 146 H Potassium Chloride 111.6 H Carbon Dioxide BUN Creatinine Glucose POC Glucose 135 H Lactic Acid Calcium 7.4 L Phosphorus Magnesium Iron TIBC Ferritin AST ALT Total Creatine Kinase Total Protein Albumin Vitamin B12 Folate TSH Free T4 Urine WBC (Auto) Urine Creatinine Urine Chloride Urine Total Protein CSF VDRL Lymph Enumerat CD4/CD8 Absolute CD3 Count % CD4 Cells Absolute CD4 Count % CD8 Cells Absolute CD19 Count T.pallidum Ab (FTA-ABS) HIV-1 RNA PCR copies/ml HIV-1 RNA (PCR) log Miscellaneous Test 09/28/18 09/29/18 09/29/18 10:43 05:00 05:00 WBC 1.2 L* RBC 3.13 L Hgb 8.6 L Hct 27.3 L RDW Plt Count 137 L Seg Neuts % (Manual) Lymphocytes % (Manual) Monocytes % (Manual) 16.0 H Eosinophils % (Manual) Basophils % (Manual) Nucleated RBC % 4.0 H Seg Neutrophils # Man 0.5 L Abs Lymphs (Manual) Lymphocytes # (Manual) 0.3 L Basophils # (Manual) PT INR APTT Heparin Anti-Xa Level POC ABG pH 7.300 L POC ABG pCO2 53.9 H POC ABG pO2 Sodium 147 H Potassium 3.4 L Chloride 114.5 H Carbon Dioxide BUN Creatinine Glucose POC Glucose Lactic Acid Calcium 7.7 L Phosphorus Magnesium Iron TIBC Ferritin AST 69 H ALT 110 H Total Creatine Kinase Total Protein 5.2 L Albumin 1.9 L Vitamin B12 Folate TSH Free T4 Urine WBC (Auto) Urine Creatinine Urine Chloride Urine Total Protein CSF VDRL Lymph Enumerat CD4/CD8 Absolute CD3 Count % CD4 Cells Absolute CD4 Count % CD8 Cells Absolute CD19 Count T.pallidum Ab (FTA-ABS) HIV-1 RNA PCR copies/ml HIV-1 RNA (PCR) log Miscellaneous Test 09/29/18 09/29/18 09/30/18 06:07 13:22 05:19 WBC 0.9 L* RBC 3.03 L Hgb 8.6 L Hct 25.9 L RDW Plt Count Seg Neuts % (Manual) Lymphocytes % (Manual) Monocytes % (Manual) Eosinophils % (Manual) Basophils % (Manual) Nucleated RBC % Seg Neutrophils # Man Abs Lymphs (Manual) Lymphocytes # (Manual) Basophils # (Manual) PT INR APTT Heparin Anti-Xa Level POC ABG pH POC ABG pCO2 46.9 H POC ABG pO2 Sodium Potassium Chloride Carbon Dioxide BUN Creatinine Glucose POC Glucose 109 H Lactic Acid Calcium Phosphorus Magnesium Iron TIBC Ferritin AST ALT Total Creatine Kinase Total Protein Albumin Vitamin B12 Folate TSH Free T4 Urine WBC (Auto) Urine Creatinine Urine Chloride Urine Total Protein CSF VDRL Lymph Enumerat CD4/CD8 Absolute CD3 Count % CD4 Cells Absolute CD4 Count % CD8 Cells Absolute CD19 Count T.pallidum Ab (FTA-ABS) HIV-1 RNA PCR copies/ml HIV-1 RNA (PCR) log Miscellaneous Test 09/30/18 09/30/18 09/30/18 05:19 11:14 23:28 WBC RBC Hgb Hct RDW Plt Count Seg Neuts % (Manual) Lymphocytes % (Manual) Monocytes % (Manual) Eosinophils % (Manual) Basophils % (Manual) Nucleated RBC % Seg Neutrophils # Man Abs Lymphs (Manual) Lymphocytes # (Manual) Basophils # (Manual) PT INR APTT Heparin Anti-Xa Level 0.72 H POC ABG pH POC ABG pCO2 46.6 H POC ABG pO2 Sodium 150 H Potassium Chloride 115.2 H Carbon Dioxide BUN Creatinine Glucose POC Glucose Lactic Acid Calcium 7.9 L Phosphorus Magnesium Iron TIBC Ferritin AST ALT Total Creatine Kinase Total Protein Albumin Vitamin B12 Folate TSH Free T4 Urine WBC (Auto) Urine Creatinine Urine Chloride Urine Total Protein CSF VDRL Lymph Enumerat CD4/CD8 Absolute CD3 Count % CD4 Cells Absolute CD4 Count % CD8 Cells Absolute CD19 Count T.pallidum Ab (FTA-ABS) HIV-1 RNA PCR copies/ml HIV-1 RNA (PCR) log Miscellaneous Test 10/01/18 10/01/18 10/02/18 04:55 04:55 07:15 WBC 0.9 L* 0.7 L* RBC 3.01 L 2.92 L Hgb 8.4 L 8.4 L Hct 26.0 L 24.9 L RDW Plt Count Seg Neuts % (Manual) Lymphocytes % (Manual) Monocytes % (Manual) Eosinophils % (Manual) Basophils % (Manual) Nucleated RBC % Seg Neutrophils # Man Abs Lymphs (Manual) Lymphocytes # (Manual) Basophils # (Manual) PT INR APTT Heparin Anti-Xa Level POC ABG pH POC ABG pCO2 POC ABG pO2 Sodium 147 H Potassium 3.4 L Chloride 113.1 H Carbon Dioxide BUN 22 H Creatinine Glucose POC Glucose Lactic Acid Calcium 7.3 L Phosphorus Magnesium Iron TIBC Ferritin AST ALT Total Creatine Kinase Total Protein Albumin Vitamin B12 Folate TSH Free T4 Urine WBC (Auto) Urine Creatinine Urine Chloride Urine Total Protein CSF VDRL Lymph Enumerat CD4/CD8 Absolute CD3 Count % CD4 Cells Absolute CD4 Count % CD8 Cells Absolute CD19 Count T.pallidum Ab (FTA-ABS) HIV-1 RNA PCR copies/ml HIV-1 RNA (PCR) log Miscellaneous Test 10/02/18 10/03/18 10/03/18 07:15 06:12 06:12 WBC 0.8 L* RBC 2.96 L Hgb 8.5 L Hct 25.9 L RDW 15.4 H Plt Count Seg Neuts % (Manual) Lymphocytes % (Manual) Monocytes % (Manual) Eosinophils % (Manual) Basophils % (Manual) Nucleated RBC % Seg Neutrophils # Man Abs Lymphs (Manual) Lymphocytes # (Manual) Basophils # (Manual) PT INR APTT Heparin Anti-Xa Level POC ABG pH POC ABG pCO2 POC ABG pO2 Sodium Potassium 3.4 L 3.4 L Chloride 108.3 H Carbon Dioxide BUN Creatinine Glucose POC Glucose Lactic Acid Calcium 7.6 L 7.4 L Phosphorus Magnesium Iron TIBC Ferritin AST ALT Total Creatine Kinase Total Protein Albumin Vitamin B12 Folate TSH Free T4 Urine WBC (Auto) Urine Creatinine Urine Chloride Urine Total Protein CSF VDRL Lymph Enumerat CD4/CD8 Absolute CD3 Count % CD4 Cells Absolute CD4 Count % CD8 Cells Absolute CD19 Count T.pallidum Ab (FTA-ABS) HIV-1 RNA PCR copies/ml HIV-1 RNA (PCR) log Miscellaneous Test 02/10/03/18 10/04/18 11:45 13:23 01:40 WBC RBC Hgb Hct RDW Plt Count Seg Neuts % (Manual) Lymphocytes % (Manual) Monocytes % (Manual) Eosinophils % (Manual) Basophils % (Manual) Nucleated RBC % Seg Neutrophils # Man Abs Lymphs (Manual) Lymphocytes # (Manual) Basophils # (Manual) PT INR APTT Heparin Anti-Xa Level 1.34 H 0.26 L POC ABG pH POC ABG pCO2 POC ABG pO2 Sodium Potassium Chloride Carbon Dioxide BUN Creatinine Glucose POC Glucose Lactic Acid Calcium Phosphorus Magnesium 1.40 L Iron TIBC Ferritin AST ALT Total Creatine Kinase Total Protein Albumin Vitamin B12 Folate TSH Free T4 Urine WBC (Auto) Urine Creatinine Urine Chloride Urine Total Protein CSF VDRL Lymph Enumerat CD4/CD8 Absolute CD3 Count % CD4 Cells Absolute CD4 Count % CD8 Cells Absolute CD19 Count T.pallidum Ab (FTA-ABS) HIV-1 RNA PCR copies/ml HIV-1 RNA (PCR) log Miscellaneous Test 10/04/18 10/04/18 10/06/18 04:45 04:45 09:40 WBC 0.8 L* RBC 3.11 L Hgb 9.0 L Hct 27.4 L RDW 15.4 H Plt Count Seg Neuts % (Manual) Lymphocytes % (Manual) Monocytes % (Manual) Eosinophils % (Manual) Basophils % (Manual) Nucleated RBC % Seg Neutrophils # Man Abs Lymphs (Manual) Lymphocytes # (Manual) Basophils # (Manual) PT INR APTT Heparin Anti-Xa Level POC ABG pH POC ABG pCO2 POC ABG pO2 Sodium Potassium Chloride Carbon Dioxide BUN Creatinine 0.7 L Glucose POC Glucose Lactic Acid Calcium 7.5 L Phosphorus Magnesium Iron 35 L TIBC 157 L Ferritin AST ALT Total Creatine Kinase Total Protein Albumin Vitamin B12 Folate TSH Free T4 Urine WBC (Auto) Urine Creatinine Urine Chloride Urine Total Protein CSF VDRL Lymph Enumerat CD4/CD8 Absolute CD3 Count % CD4 Cells Absolute CD4 Count % CD8 Cells Absolute CD19 Count T.pallidum Ab (FTA-ABS) HIV-1 RNA PCR copies/ml HIV-1 RNA (PCR) log Miscellaneous Test 10/06/18 10/06/18 10/07/18 09:40 09:40 04:20 WBC 1.1 L* RBC 3.07 L Hgb 9.1 L Hct 27.3 L RDW 20.3 H Plt Count Seg Neuts % (Manual) Lymphocytes % (Manual) Monocytes % (Manual) Eosinophils % (Manual) Basophils % (Manual) Nucleated RBC % Seg Neutrophils # Man 0.7 L Abs Lymphs (Manual) Lymphocytes # (Manual) 0.3 L Basophils # (Manual) PT INR APTT Heparin Anti-Xa Level POC ABG pH POC ABG pCO2 POC ABG pO2 Sodium Potassium Chloride Carbon Dioxide BUN Creatinine Glucose POC Glucose Lactic Acid Calcium Phosphorus Magnesium Iron TIBC Ferritin 1126.0 H AST ALT Total Creatine Kinase Total Protein Albumin Vitamin B12 Folate 6.71 L TSH Free T4 Urine WBC (Auto) Urine Creatinine Urine Chloride Urine Total Protein CSF VDRL Lymph Enumerat CD4/CD8 Absolute CD3 Count % CD4 Cells Absolute CD4 Count % CD8 Cells Absolute CD19 Count T.pallidum Ab (FTA-ABS) HIV-1 RNA PCR copies/ml HIV-1 RNA (PCR) log Miscellaneous Test 10/07/18 10/07/18 10/09/18 04:20 15:38 04:20 WBC 1.1 L* RBC 3.35 L Hgb 9.9 L Hct 30.1 L RDW 21.4 H Plt Count Seg Neuts % (Manual) 19.0 L Lymphocytes % (Manual) 42.0 H Monocytes % (Manual) 18.0 H Eosinophils % (Manual) 15.0 H Basophils % (Manual) 2.0 H Nucleated RBC % Seg Neutrophils # Man 0.2 L Abs Lymphs (Manual) Lymphocytes # (Manual) 0.5 L Basophils # (Manual) PT INR APTT Heparin Anti-Xa Level POC ABG pH 7.516 H POC ABG pCO2 32.1 L POC ABG pO2 Sodium Potassium Chloride Carbon Dioxide BUN Creatinine 0.7 L Glucose POC Glucose Lactic Acid Calcium 7.9 L Phosphorus Magnesium Iron TIBC Ferritin AST ALT Total Creatine Kinase Total Protein 5.5 L Albumin 2.2 L Vitamin B12 Folate TSH Free T4 Urine WBC (Auto) Urine Creatinine Urine Chloride Urine Total Protein CSF VDRL Lymph Enumerat CD4/CD8 Absolute CD3 Count % CD4 Cells Absolute CD4 Count % CD8 Cells Absolute CD19 Count T.pallidum Ab (FTA-ABS) HIV-1 RNA PCR copies/ml HIV-1 RNA (PCR) log Miscellaneous Test 10/09/18 10/09/18 10/09/18 04:20 11:48 17:31 WBC RBC Hgb Hct RDW Plt Count Seg Neuts % (Manual) Lymphocytes % (Manual) Monocytes % (Manual) Eosinophils % (Manual) Basophils % (Manual) Nucleated RBC % Seg Neutrophils # Man Abs Lymphs (Manual) Lymphocytes # (Manual) Basophils # (Manual) PT INR APTT Heparin Anti-Xa Level POC ABG pH POC ABG pCO2 POC ABG pO2 Sodium Potassium 5.4 H Chloride Carbon Dioxide 21 L BUN 55 H 72 H Creatinine 3.8 H D 4.5 H Glucose 118 H POC Glucose 124 H Lactic Acid Calcium 8.3 L 8.2 L Phosphorus Magnesium Iron TIBC Ferritin AST ALT Total Creatine Kinase Total Protein Albumin Vitamin B12 Folate TSH Free T4 Urine WBC (Auto) Urine Creatinine Urine Chloride Urine Total Protein CSF VDRL Lymph Enumerat CD4/CD8 Absolute CD3 Count % CD4 Cells Absolute CD4 Count % CD8 Cells Absolute CD19 Count T.pallidum Ab (FTA-ABS) HIV-1 RNA PCR copies/ml HIV-1 RNA (PCR) log Miscellaneous Test 10/10/18 10/10/18 10/10/18 08:09 08:35 10:54 WBC 1.1 L* RBC 3.16 L Hgb 9.6 L Hct 28.8 L RDW 21.2 H Plt Count Seg Neuts % (Manual) 27.0 L Lymphocytes % (Manual) Monocytes % (Manual) 9.0 H Eosinophils % (Manual) 18.0 H Basophils % (Manual) 12.0 H Nucleated RBC % Seg Neutrophils # Man 0.3 L Abs Lymphs (Manual) Lymphocytes # (Manual) 0.3 L Basophils # (Manual) PT 16.0 H INR 1.20 H APTT Heparin Anti-Xa Level POC ABG pH POC ABG pCO2 POC ABG pO2 Sodium Potassium 5.5 H Chloride Carbon Dioxide 20 L BUN 83 H Creatinine 5.5 H Glucose 119 H POC Glucose Lactic Acid Calcium Phosphorus Magnesium Iron TIBC Ferritin AST ALT Total Creatine Kinase Total Protein Albumin Vitamin B12 Folate TSH Free T4 Urine WBC (Auto) Urine Creatinine Urine Chloride Urine Total Protein CSF VDRL Lymph Enumerat CD4/CD8 Absolute CD3 Count % CD4 Cells Absolute CD4 Count % CD8 Cells Absolute CD19 Count T.pallidum Ab (FTA-ABS) HIV-1 RNA PCR copies/ml HIV-1 RNA (PCR) log Miscellaneous Test 10/10/18 10/10/18 10/11/18 Unknown Unknown 05:20 WBC 1.2 L* RBC 2.89 L Hgb 8.7 L Hct 26.0 L RDW 20.1 H Plt Count Seg Neuts % (Manual) Lymphocytes % (Manual) 8.0 L Monocytes % (Manual) 12.0 H Eosinophils % (Manual) 24.0 H Basophils % (Manual) 4.0 H Nucleated RBC % Seg Neutrophils # Man 0.6 L Abs Lymphs (Manual) Lymphocytes # (Manual) 0.1 L Basophils # (Manual) PT INR APTT Heparin Anti-Xa Level POC ABG pH POC ABG pCO2 POC ABG pO2 Sodium Potassium Chloride Carbon Dioxide BUN Creatinine Glucose POC Glucose Lactic Acid Calcium Phosphorus Magnesium Iron TIBC Ferritin AST ALT Total Creatine Kinase Total Protein Albumin Vitamin B12 Folate TSH Free T4 Urine WBC (Auto) Urine Creatinine Urine Chloride Urine Total Protein CSF VDRL Reactive 1:2 H Lymph Enumerat CD4/CD8 Absolute CD3 Count % CD4 Cells Absolute CD4 Count % CD8 Cells Absolute CD19 Count T.pallidum Ab (FTA-ABS) HIV-1 RNA PCR copies/ml HIV-1 RNA (PCR) log Miscellaneous Test Flexitest 1 H 10/11/18 10/11/18 10/11/18 05:20 05:40 05:40 WBC RBC Hgb Hct RDW Plt Count Seg Neuts % (Manual) Lymphocytes % (Manual) Monocytes % (Manual) Eosinophils % (Manual) Basophils % (Manual) Nucleated RBC % Seg Neutrophils # Man Abs Lymphs (Manual) Lymphocytes # (Manual) Basophils # (Manual) PT INR APTT Heparin Anti-Xa Level POC ABG pH POC ABG pCO2 POC ABG pO2 Sodium Potassium Chloride Carbon Dioxide 20 L BUN 102 H Creatinine 6.7 H Glucose POC Glucose Lactic Acid Calcium 8.3 L Phosphorus Magnesium Iron TIBC Ferritin AST ALT Total Creatine Kinase Total Protein Albumin Vitamin B12 Folate TSH Free T4 Urine WBC (Auto) 8.0 H Urine Creatinine 57.5 H Urine Chloride 35.1 L Urine Total Protein 44 H CSF VDRL Lymph Enumerat CD4/CD8 Absolute CD3 Count % CD4 Cells Absolute CD4 Count % CD8 Cells Absolute CD19 Count T.pallidum Ab (FTA-ABS) HIV-1 RNA PCR copies/ml HIV-1 RNA (PCR) log Miscellaneous Test 10/11/18 10/12/18 10/12/18 16:41 03:30 03:30 WBC 0.9 L* RBC 2.78 L Hgb 8.3 L Hct 25.1 L RDW 19.9 H Plt Count Seg Neuts % (Manual) Lymphocytes % (Manual) Monocytes % (Manual) Eosinophils % (Manual) 20.0 H Basophils % (Manual) Nucleated RBC % Seg Neutrophils # Man 0.5 L Abs Lymphs (Manual) Lymphocytes # (Manual) 0.3 L Basophils # (Manual) PT INR APTT Heparin Anti-Xa Level POC ABG pH 7.318 L POC ABG pCO2 POC ABG pO2 Sodium Potassium Chloride Carbon Dioxide 18 L BUN 111 H Creatinine 7.3 H Glucose POC Glucose Lactic Acid Calcium 7.9 L Phosphorus Magnesium Iron TIBC Ferritin AST ALT Total Creatine Kinase Total Protein Albumin Vitamin B12 Folate TSH Free T4 Urine WBC (Auto) Urine Creatinine Urine Chloride Urine Total Protein CSF VDRL Lymph Enumerat CD4/CD8 Absolute CD3 Count % CD4 Cells Absolute CD4 Count % CD8 Cells Absolute CD19 Count T.pallidum Ab (FTA-ABS) HIV-1 RNA PCR copies/ml HIV-1 RNA (PCR) log Miscellaneous Test 10/12/18 10/13/18 10/13/18 13:30 04:00 04:05 WBC 1.0 L* RBC 2.68 L Hgb 8.1 L Hct 24.3 L RDW 19.7 H Plt Count Seg Neuts % (Manual) 36.7 L Lymphocytes % (Manual) Monocytes % (Manual) Eosinophils % (Manual) 16.7 H Basophils % (Manual) 16.7 H Nucleated RBC % Seg Neutrophils # Man 0.4 L Abs Lymphs (Manual) Lymphocytes # (Manual) 0.2 L Basophils # (Manual) 0.2 H PT INR APTT Heparin Anti-Xa Level POC ABG pH 7.336 L POC ABG pCO2 31.5 L POC ABG pO2 122 H Sodium Potassium Chloride Carbon Dioxide 17 L BUN 118 H Creatinine 7.8 H Glucose 102 H POC Glucose Lactic Acid Calcium 7.8 L Phosphorus Magnesium Iron TIBC Ferritin AST ALT Total Creatine Kinase Total Protein Albumin Vitamin B12 Folate TSH Free T4 Urine WBC (Auto) Urine Creatinine Urine Chloride Urine Total Protein CSF VDRL Lymph Enumerat CD4/CD8 Absolute CD3 Count % CD4 Cells Absolute CD4 Count % CD8 Cells Absolute CD19 Count T.pallidum Ab (FTA-ABS) HIV-1 RNA PCR copies/ml HIV-1 RNA (PCR) log Miscellaneous Test 10/13/18 10/14/18 10/14/18 18:44 00:01 05:20 WBC RBC Hgb Hct RDW Plt Count Seg Neuts % (Manual) Lymphocytes % (Manual) Monocytes % (Manual) Eosinophils % (Manual) Basophils % (Manual) Nucleated RBC % Seg Neutrophils # Man Abs Lymphs (Manual) Lymphocytes # (Manual) Basophils # (Manual) PT INR APTT Heparin Anti-Xa Level POC ABG pH POC ABG pCO2 POC ABG pO2 Sodium Potassium Chloride Carbon Dioxide BUN Creatinine Glucose POC Glucose 141 H 134 H 171 H Lactic Acid Calcium Phosphorus Magnesium Iron TIBC Ferritin AST ALT Total Creatine Kinase Total Protein Albumin Vitamin B12 Folate TSH Free T4 Urine WBC (Auto) Urine Creatinine Urine Chloride Urine Total Protein CSF VDRL Lymph Enumerat CD4/CD8 Absolute CD3 Count % CD4 Cells Absolute CD4 Count % CD8 Cells Absolute CD19 Count T.pallidum Ab (FTA-ABS) HIV-1 RNA PCR copies/ml HIV-1 RNA (PCR) log Miscellaneous Test 10/14/18 10/14/18 Unknown Unknown WBC 0.5 L* RBC 2.80 L Hgb 8.2 L Hct 25.2 L RDW 19.7 H Plt Count Seg Neuts % (Manual) Lymphocytes % (Manual) 10.0 L Monocytes % (Manual) Eosinophils % (Manual) 10.0 H Basophils % (Manual) Nucleated RBC % Seg Neutrophils # Man 0.4 L Abs Lymphs (Manual) Lymphocytes # (Manual) 0.1 L Basophils # (Manual) PT INR APTT Heparin Anti-Xa Level POC ABG pH POC ABG pCO2 POC ABG pO2 Sodium Potassium Chloride Carbon Dioxide 13 L BUN 126 H Creatinine 7.7 H Glucose 153 H POC Glucose Lactic Acid Calcium 7.8 L Phosphorus Magnesium Iron TIBC Ferritin AST ALT Total Creatine Kinase Total Protein Albumin Vitamin B12 Folate TSH Free T4 Urine WBC (Auto) Urine Creatinine Urine Chloride Urine Total Protein CSF VDRL Lymph Enumerat CD4/CD8 Absolute CD3 Count % CD4 Cells Absolute CD4 Count % CD8 Cells Absolute CD19 Count T.pallidum Ab (FTA-ABS) HIV-1 RNA PCR copies/ml HIV-1 RNA (PCR) log Miscellaneous Test Allied health notes reviewed: nursing
[2018-10-14] MEDS: KEPPRA PO SCH ×2 (10:02→22:39)
[2018-10-14] MEDS: LOPRESSOR PO SCH ×2 (10:03→22:42)
[2018-10-14] MEDS: FOLVITE PO SCH (10:04)
[2018-10-14] MEDS: PEPCID PO SCH (10:04)
[2018-10-14] MEDS: MEPRON PO SCH ×2 (10:04→22:40)
[2018-10-14] MEDS: MAXIPIME/NS 2 GM/100 ML 2 GM/100 ML BAG IV SCH (10:05)
[2018-10-14 10:08] LABS: Calcium 7.8 mg/dL (8.4-10.2)
[2018-10-14] MEDS: DIFLUCAN PO SCH (10:13)
[2018-10-14] MEDS: TIVICAY PO SCH (10:13)
[2018-10-14] MEDS: SOLU-Medrol 500 MG in NACL 0.9% 100 ML IV SCH (11:34)
[2018-10-14] MEDS: GRANIX SUB-Q SCH (11:34)
[2018-10-14] MEDS: CYTOVENE IV SCH (12:07)
[2018-10-14] MEDS: NACL 0.9% IV SCH (12:07)
--- NOTE | 2018-10-14 15:04 | Progress Note ---
Assessment and Plan Assessment and plan: : Patient is 33 yo initially presented with diarrhea, found to have pneumonia, sepsis, HIV/AIDS(new diagnosis) with CD4 count of 4. He was started on abx for PJP. His mental status has worsened with confusion, lethargy. LP done . He was diagnosed with neurosyphilis. Started on Penicillin. Closest family is sister in [place], and dr. Baltazar spoke to her several times about diagnosis but did not tell her about HIV/AIDS because of patient confidentiality. The patient decompensated on 09/20/18 with acute hypoxemic respiratory failure and worsening toxic metabolic encephalopathy requiring transfer to ICU and intubation. He now remains on mechanical ventilation. The patient was also noted to develop SVT requiring amiodarone drip as well as heparin drip. Severe Sepsis. Etiology secondary to bacterial pneumonia +/- gastroenteritis with newly diagnosed with HIV. Fevers have re-emerged. Repeat blood cx per ID. ARF - Creatinine is trending up this morning was 6.7, could be due to his HIV, sepsis - nephrology is following Acute hypoxemic respiratory failure - Patient has pneumonia and altered mental status - Patient is intubated and on mechanical ventilation - Pulmonary is following Disseminated CMV viremia: - continue IV Ganciclovir 5 mg/kg q12 hrs - Repeat LP was done and no significant change - VDRL reactive Toxic metabolic encephalopathy. 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 Of note, MRI did not show ventriculitis. Neurology evaluation. - Patient showed improvement follows simple commands A. fib with RVR. Converted to NSR. cont Amiodarone and metoprolol. Rate controlled Neurosyphilis: CSF VDRL positive, off Ceftriaxone and back on IV Penicillin (will complete 21 days). Diarrhea. Resolved, etiology likely secondary to Giardia. Giardia antigen positive in stool. Completed several days of Flagyl. Oral candidiasis. Fluconazole HIV/AIDS. New Diagnosis. Started on HAART on 09/30, Tenofovir, Emtricitabine + Dolutegravir watch closely for IRIS continue atovaquone and azithromycin prophylaxis Neutropenia. 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 Also probably worse from ganciclovir. r/o disseminated MAC, thus far cultures negative. WBC count this morning was 0.5, progressively declining. Hematology saw him and continue granix. Prognosis poor. Sister hold off Trach and PEG. I have a long discussion with his sister on the phone. she had a Discussion with multiple doctors and explain everything but she said nobody explain what is going on. I personally discussed with her on the phone for 30 minutes and 16 minutes this morning and despite that she wants specific information about the prognosis, how long is going to be PEG and trach which are difficult to tell exactly but explained the prognosis in general. The high probability of a clinically significant, sudden or life threatening deterioration of the [neurological, respiratory and cardiac] system(s) required my full and direct attention, intervention and personal management. The aggregate critical care time was [31] minutes. This time is in addition to time spent performing reported procedures but includes the following: [x] Data Review and interpretation [x] Patient assessment and monitoring of vital signs [x] Documentation [x] Medication orders and management History Interval history: Patient was seen and evaluated this morning, no fever overnight, patient is intubated and on mechanical ventilation. patient follow simple commands. I asked him to blink his eyes twice he did, asked him to squeeze my fingers her did but weak. Hospitalist Physical - Physical exam Narrative exam: Patient is intubated and on mechanical ventilation. The patient is obese. Vital signs as documented. Head exam is unremarkable. No scleral icterus . Neck is without jugular venous distension, thyromegaly, or carotid bruits. Lungs are clear to auscultation. Cardiac exam reveals regular rate and Rhythm. First and second heart sounds normal. No murmurs, rubs or gallops. Abdominal exam reveals normal bowel sounds, no masses, no organomegaly and no aortic enlargement. Extremities are nonedematous and both femoral and pedal pulses are normal. 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 Follow simple commands. - Constitutional Vitals: Temp Pulse Resp BP Pulse Ox 97.8 F 77 16 106/62 100 10/14/18 12:00 10/14/18 14:54 10/14/18 14:54 10/14/18 12:47 10/14/18 12:47 General appearance: Present: other (orally intubated, minimal response--right side spontaneous movement) Results - Labs CBC & Chem 7: 10/14/18 Unknown 10/14/18 Unknown Labs: Laboratory Last Values WBC 0.5 K/mm3 (4.5-11.0) L* 10/14/18 Unknown RBC 2.80 M/mm3 (3.65-5.03) L 10/14/18 Unknown Hgb 8.2 gm/dl (11.8-15.2) L 10/14/18 Unknown Hct 25.2 % (35.5-45.6) L 10/14/18 Unknown MCV 90 fl (84-94) 10/14/18 Unknown MCH 29 pg (28-32) 10/14/18 Unknown MCHC 33 % (32-34) 10/14/18 Unknown RDW 19.7 % (13.2-15.2) H 10/14/18 Unknown Plt Count 214 K/mm3 (140-440) 10/14/18 Unknown [place] % (Auto) Milling Machine Tender 09/29/18 05:00 Eos % (Auto) Milling Machine Tender 10/13/18 04:05 Baso % (Auto) Milling Machine Tender 10/13/18 04:05 Add Manual Diff Complete 10/14/18 Unknown Total Counted 10 10/14/18 Unknown Seg Neutrophils % Milling Machine Tender 10/10/18 08:35 Seg Neuts % (Manual) 70.0 % (40.0-70.0) 10/14/18 Unknown Band Neutrophils % 0 % 10/14/18 Unknown Lymphocytes % (Manual) 10.0 % (13.4-35.0) L 10/14/18 Unknown Reactive Lymphs % (Man) 0 % 10/14/18 Unknown Monocytes % (Manual) 0 % (0.0-7.3) 10/14/18 Unknown Eosinophils % (Manual) 10.0 % (0.0-4.3) H 10/14/18 Unknown Basophils % (Manual) 0 % (0.0-1.8) 10/14/18 Unknown Metamyelocytes % 10.0 % 10/14/18 Unknown Myelocytes % 0 % 10/14/18 Unknown Promyelocytes % 0 % 10/14/18 Unknown Blast Cells % 0 % 10/14/18 Unknown Nucleated RBC % Not Reportable 10/14/18 Unknown Seg Neutrophils # Man 0.4 K/mm3 (1.8-7.7) L 10/14/18 Unknown Band Neutrophils # 0.0 K/mm3 10/14/18 Unknown Abs Lymphs (Manual) 309 cells/uL (850-3900) L 09/13/18 12:29 Lymphocytes # (Manual) 0.1 K/mm3 (1.2-5.4) L 10/14/18 Unknown Abs React Lymphs (Man) 0.0 K/mm3 10/14/18 Unknown Monocytes # (Manual) 0.0 K/mm3 (0.0-0.8) 10/14/18 Unknown Eosinophils # (Manual) 0.1 K/mm3 (0.0-0.4) 10/14/18 Unknown Basophils # (Manual) 0.0 K/mm3 (0.0-0.1) 10/14/18 Unknown Metamyelocytes # 0.1 K/mm3 10/14/18 Unknown Myelocytes # 0.0 K/mm3 10/14/18 Unknown Promyelocytes # 0.0 K/mm3 10/14/18 Unknown Blast Cells # 0.0 K/mm3 10/14/18 Unknown WBC Morphology Not Reportable 10/14/18 Unknown Hypersegmented Neuts Not Reportable 10/14/18 Unknown Hyposegmented Neuts Not Reportable 10/14/18 Unknown Hypogranular Neuts Not Reportable 10/14/18 Unknown Smudge Cells Not Reportable 10/14/18 Unknown Toxic Granulation Not Reportable 10/14/18 Unknown Toxic Vacuolation Not Reportable 10/14/18 Unknown Dohle Bodies Few 10/14/18 Unknown Pelger-Huet Anomaly Not Reportable 10/14/18 Unknown Giovanna Rods Not Reportable 10/14/18 Unknown Platelet Estimate Appears normal 10/14/18 Unknown Clumped Platelets Not Reportable 10/14/18 Unknown Plt Clumps, EDTA Not Reportable 10/14/18 Unknown Large Platelets 1+ 10/14/18 Unknown Giant Platelets Not Reportable 10/14/18 Unknown Platelet Satelliting Not Reportable 10/14/18 Unknown Plt Morphology Comment Not Reportable 10/14/18 Unknown RBC Morphology Not Reportable 10/14/18 Unknown Dimorphic RBCs Not Reportable 10/14/18 Unknown Polychromasia Not Reportable 10/14/18 Unknown Hypochromasia Not Reportable 10/14/18 Unknown Poikilocytosis Not Reportable 10/14/18 Unknown Anisocytosis 2+ 10/14/18 Unknown Microcytosis Not Reportable 10/14/18 Unknown Macrocytosis Not Reportable 10/14/18 Unknown Spherocytes Not Reportable 10/14/18 Unknown Pappenheimer Bodies Not Reportable 10/14/18 Unknown Sickle Cells Not Reportable 10/14/18 Unknown Target Cells Rare 10/14/18 Unknown Tear Drop Cells Not Reportable 10/14/18 Unknown Ovalocytes 2+ 10/14/18 Unknown Stomatocytes 1+ 09/29/18 05:00 Helmet Cells Rare 10/14/18 Unknown [place] Bodies Not Reportable 10/14/18 Unknown [place] Rings Not Reportable 10/14/18 Unknown Reading Cells Few 10/14/18 Unknown Bite Cells Not Reportable 10/14/18 Unknown Crenated Cell Not Reportable 10/14/18 Unknown Elliptocytes 1+ 10/14/18 Unknown Acanthocytes (Spur) Not Reportable 10/14/18 Unknown Rouleaux Not Reportable 10/14/18 Unknown Hemoglobin C Crystals Not Reportable 10/14/18 Unknown Schistocytes Not Reportable 10/14/18 Unknown Malaria parasites Not Reportable 10/14/18 Unknown Kieran Bodies Not Reportable 10/14/18 Unknown Hem Pathologist Commnt No 10/14/18 Unknown PT 16.0 Sec. (12.2-14.9) H 10/10/18 08:09 INR 1.20 (0.87-1.13) H 10/10/18 08:09 APTT 40.9 Sec. (24.2-36.6) H 09/21/18 15:00 Heparin Anti-Xa Level 0.35 U.I./ml (0.3-0.7) 10/05/18 10:19 POC ABG pH 7.336 (7.35-7.45) L 10/12/18 13:30 POC ABG pCO2 31.5 (35-45) L 10/12/18 13:30 POC ABG pO2 122 (80-105) H 10/12/18 13:30 POC ABG HCO3 16.8 10/12/18 13:30 POC ABG Total CO2 18 10/12/18 13:30 POC ABG O2 Sat 99 10/12/18 13:30 POC ABG Base Excess -9 10/12/18 13:30 FiO2 25 % 10/12/18 13:30 Sodium 143 mmol/L (137-145) 10/14/18 Unknown Potassium 3.6 mmol/L (3.6-5.0) 10/14/18 Unknown Chloride 106.7 mmol/L (98-107) 10/14/18 Unknown Carbon Dioxide 13 mmol/L (22-30) L 10/14/18 Unknown Anion Gap 27 mmol/L 10/14/18 Unknown BUN 126 mg/dL (9-20) H 10/14/18 Unknown Creatinine 7.7 mg/dL (0.8-1.5) H 10/14/18 Unknown Estimated GFR 10 ml/min 10/14/18 Unknown BUN/Creatinine Ratio 16 % 10/14/18 Unknown Glucose 153 mg/dL (75-100) H 10/14/18 Unknown POC Glucose 164 (70-105) H 10/14/18 11:37 Lactic Acid 0.90 mmol/L (0.7-2.0) 09/11/18 20:17 Calcium 7.8 mg/dL (8.4-10.2) L 10/14/18 Unknown Phosphorus 8.50 mg/dL (2.5-4.5) H 10/14/18 09:40 Magnesium 2.10 mg/dL (1.7-2.3) 10/14/18 09:40 Iron 35 ug/dL (49-181) L 10/06/18 09:40 TIBC 157 mcg/dL (250-450) L 10/06/18 09:40 Ferritin 1126.0 ng/mL (13.0-400.0) H 10/06/18 09:40 Total Bilirubin 0.30 mg/dL (0.1-1.2) 10/07/18 04:20 Direct Bilirubin < 0.2 mg/dL (0-0.2) 09/13/18 07:31 AST 30 units/L (5-40) 10/07/18 04:20 ALT 25 units/L (7-56) 10/07/18 04:20 Alkaline Phosphatase 57 units/L (35-129) 10/07/18 04:20 Ammonia 27.0 umol/L (25-60) 10/03/18 13:23 Total Creatine Kinase 113 units/L (55-170) 10/11/18 05:20 CK-MB (CK-2) 2.6 ng/mL (0.0-4.0) 10/11/18 05:20 CK-MB (CK-2) Rel Index 0.5 (0-4) 09/21/18 04:25 NT-Pro-B Natriuret Pep 145.9 pg/mL (0-450) 09/18/18 16:07 Total Protein 5.5 g/dL (6.3-8.2) L 10/07/18 04:20 Albumin 2.2 g/dL (3.9-5) L 10/07/18 04:20 Albumin/Globulin Ratio 0.7 % 10/07/18 04:20 Vitamin B12 934.5 pg/mL (211-911) H 09/16/18 11:41 Folate 6.71 ng/mL (7.3-26.0) L 10/06/18 09:40 TSH 5.190 mlU/mL (0.270-4.200) H 09/18/18 12:46 Free T4 0.75 ng/dL (0.76-1.46) L 09/18/18 12:46 Urine Color Yellow (Yellow) 10/11/18 05:40 Urine Turbidity Slightly-cloudy (Clear) 10/11/18 05:40 Urine pH 5.0 (5.0-7.0) 10/11/18 05:40 Ur Specific [place] 1.012 (1.003-1.030) 10/11/18 05:40 Urine Protein 30 mg/dl mg/dL (Negative) 10/11/18 05:40 Urine Glucose (UA) Neg mg/dL (Negative) 10/11/18 05:40 Urine Ketones Neg mg/dL (Negative) 10/11/18 05:40 Urine Blood Mod (Negative) 10/11/18 05:40 Urine Nitrite Neg (Negative) 10/11/18 05:40 Urine Bilirubin Neg (Negative) 10/11/18 05:40 Urine Urobilinogen < 2.0 mg/dL (<2.0) 10/11/18 05:40 Ur Leukocyte Esterase Neg (Negative) 10/11/18 05:40 Urine WBC (Auto) 8.0 /HPF (0.0-6.0) H 10/11/18 05:40 Urine RBC (Auto) 45.0 /HPF (0.0-6.0) 10/11/18 05:40 U Epithel Cells (Auto) 2.0 /HPF (0-13.0) 10/11/18 05:40 Urine Bacteria (Auto) 1+ /HPF (Negative) 10/11/18 05:40 Urine Mucus Few /HPF 10/11/18 05:40 Urine Creatinine 57.5 mg/dL (0.1-20.0) H 10/11/18 05:40 Protein/Creatinin Ratio 0.77 10/11/18 05:40 Urine Sodium 70 mmol/L 10/11/18 05:40 Urine Chloride 35.1 mmolL (110-250) L 10/11/18 05:40 Urine Total Protein 44 mg/dL (5-11.8) H 10/11/18 05:40 CSF Appearance Bloody 10/10/18 Unknown CSF Color Red 10/10/18 Unknown CSF WBC 10 /mm3 (1-10) 10/10/18 Unknown CSF RBC 41462 /mm3 (0-0) 10/10/18 Unknown CSF Seg Neutrophils 14.0 % (0-6) 10/10/18 Unknown CSF Lymphocytes % 44.0 % (40-80) 10/10/18 Unknown CSF Reactive Lymphs 0 % 10/10/18 Unknown CSF Monocytes % 38.0 % (15-45) 10/10/18 Unknown CSF Eosinophils % 4.0 % 10/10/18 Unknown CSF Basophils 0 % 10/10/18 Unknown CSF Pathologist Review C 10/10/18 Unknown CSF Glucose 47 mg/dL 10/10/18 Unknown CSF Total Protein 84 mg/dL 10/10/18 Unknown CSF VDRL Reactive 1:2 (Nonreactive) H 10/10/18 Unknown Vancomycin Trough 14.3 ug/mL (5.0-20.0) 09/25/18 14:45 Random Vancomycin 10.7 ug/mL (0-40.0) 10/12/18 03:30 Urine Opiates Screen Presumptive negative 09/17/18 15:52 Urine Methadone Screen Presumptive negative 09/17/18 15:52 Ur Barbiturates Screen Presumptive negative 09/17/18 15:52 Ur Phencyclidine Scrn Presumptive negative 09/17/18 15:52 Ur Amphetamines Screen Presumptive negative 09/17/18 15:52 U Benzodiazepines Scrn Presumptive negative 09/17/18 15:52 Urine Cocaine Screen Presumptive negative 09/17/18 15:52 U Marijuana (THC) Screen Presumptive negative 09/17/18 15:52 Drugs of Abuse Note Disclamer 09/17/18 15:52 Complement C3 184 mg/dL (82-185) 10/12/18 09:46 Complement C4 45 mg/dL (15-53) 10/12/18 09:46 Lymph Enumerat CD4/CD8 0.01 (0.86-5.00) L 09/13/18 12:29 % CD3 Cells 71 % (57-85) 09/13/18 12:29 Absolute CD3 Count 220 cells/uL (840-3060) L 09/13/18 12:29 % CD4 Cells 1 % (30-61) L 09/13/18 12:29 Absolute CD4 Count 4 cells/uL (490-1740) L 09/13/18 12:29 % CD8 Cells 70 % (12-42) H 09/13/18 12:29 Absolute CD8 Count 216 cells/uL (180-1170) 09/13/18 12:29 % CD19 Cells 17 % (6-29) 09/13/18 12:29 Absolute CD19 Count 54 cells/uL (110-660) L 09/13/18 12:29 RPR Titer 1:16 09/13/18 12:29 RPR Reactive (Nonreactive) 09/13/18 12:29 T.pallidum Ab (FTA-ABS) Reactive (Nonreactive) H 09/14/18 16:34 C. 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 See scanned results 10/03/18 06:12 Hepatitis A IgM Ab Non-reactive (NonReactive) 09/13/18 12:29 Hep Bs Antigen Non-reactive (Negative) 09/13/18 12:29 Hep B Core IgM Ab Non-reactive (NonReactive) 09/13/18 12:29 Hepatitis C Antibody Non-reactive (NonReactive) 09/13/18 12:29 HIV-1 Antibody See scanned result 09/11/18 19:14 HIV-1 RNA PCR copies/ml 61655 Copies/mL H 09/13/18 12:29 HIV-1 RNA (PCR) log 4.71 Log cps/mL H 09/13/18 12:29 HIV-2 Ab (Immunoblot) See scanned result 09/11/18 19:14 HIV 1&2 Antibody Rapid Reactive (Non React) 09/11/18 19:14 HIV P24 Antigen Non react (Non React) 09/11/18 19:14 Influenza A (Rapid) Negative (Negative) 09/13/18 16:05 Influenza A (RT-PCR) Negative (Negative) 09/13/18 16:05 Influenza B (Rapid) Negative (Negative) 09/13/18 16:05 Influenza B (RT-PCR) Negative (Negative) 09/13/18 16:05 Toxoplasma IgG Ab <7.20 IU/mL (<7.20) 09/16/18 12:09 Miscellaneous Test Flexitest 1 H 10/10/18 Unknown Nutrition/Malnutrition Assess - Dietary Evaluation Nutrition/Malnutrition Findings: Nutrition Notes Start: 09/12/18 17:45 Freq: Status: Active Protocol: Document 10/14/18 09:51 CP (Rec: 10/14/18 09:55 CP [id number]) Co-Sign 10/14/18 09:51 LP Nutrition Notes Initial or Follow up Reassessment Current Diagnosis Acute Kidney Injury Sepsis Respiratory Failure Other Pertinent Diagnosis HIV, bilat pneu, gastroenteritis, encephalopathy Current Diet TF- Vital High Protein at 70ml /hr Labs/Tests Reviewed Pertinent Medications Reviewed Height 6 ft Weight 130.7 kg [place] Body Weight (kg) 80.90 BMI 39.0 Subjective/Other Information Observed TF running at goal ( 70 mL). Per nurse, pt is tolerating TF and water flush of 200 mL was administered 09: 30 today. Percent of energy/protein needs met: 86%/90% Burn Absent Trauma Absent #2 Nutrition Diagnosis Inadequate oral intake Diagnosis Progress(for reassessment Continues documentation) #1 Nutrition Diagnosis Malnutrition Diagnosis Progress(for reassessment Continues documentation) Is patient on ventilator? Yes Is Patient Ambulatory and/or Out of Bed No REE-([facility]-confined to bed) 2749.596 Kcal/Kg value to use for calculation 15 Approximate Energy Requirements Using 1961 kcal/Kg Additional Notes Pro needs 2g/kg IBW: 162g/day Fluid needs 1ml/kcal Nutrition Intervention Change Diet Order: Continue TF Nutrition Support: Vital HP at 70ml/hr Kcal 1,680 Protein (gm) 147 Fluid (mL) 1,404 Goal #1 Continue to meet at least 80% of PRO and kcal needs with TF. Anticipated Discharge Needs: Unable to determine at this time Follow-Up By: 10/21/18 Additional Comments F/U: Stable TF/TF tolerance , New Tf container hung
--- NOTE | 2018-10-14 20:28 | Progress Note ---
Assessment and Plan Cultures: 09/11/2018 blood culture: no growth 09/13/2018 serum cryptococcus ag neg 09/14/2018 CSF cryptococcus ag neg 09/14/2018 stool Nona 09/15/2018 stool +Giardia ag 09/19/2018 CSF cryptococcus ag neg 09/21/2018 tracheal aspirate culture: Nona albicans 09/23/2018 blood culture: No growth 09/23/2018 Fungal blood culture: no growth thus far 10/09/2018 blood culture: No growth A/P: 33 y/o male with no PMH; admitted on 09/11/2018 due to 4 days-AMS/behavioral changes, nausea, vomiting, diarrhea, weight loss and cough: 1) Low grade fevers: continues since 10/08 NOW resolved x 4 days, etiology ? likely IRIS related (ART started on 09/30) versus NGT-associated sinusitis/mastoiditis. shock resolved. Completed 10 days of Ceftriaxone, off since 10/03/2018. On ganciclovir for disseminated CMV. On vanco/cefepime for sinusitis/mastoiditis. 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 WBC remains low could be from CMV v/s ganciclovir. Clinically better - CMV DNA PCR 09/16/2018 is 1,058,978, 6 log - CMV DNA PCR 09/26/2018 is 710K, 5.85 log - CMV DNA PCR 10/03/2018 is 262K, 5.4 log 3) Acute respiratory failure: still on the vent minimal settings, mainly due to mental status issues. PJP DFA negative. CXR stable without pneumonia. 4) Acute encephalopathy: NOT better; possibly from neurosyphilis v/s CMV encephalitis v/s metabolic etiology. Of note, MRI did not show ventriculitis. CSF YAYO virus DNA PCR neg. Toxo IgG negative. He has received 20 days of Pen G IV and Ganciclovir with minimal improvement, still somnolent and nystagmus noted ? neurosyphilis treatement failure ? other etiologies like metabolic, CVA. Di scussed with neuro Dr Nazario EEG x 2 no epileptic activity - "Up to 4 EEGs over several months may be needed to capture interictal epileptiform activity". - repeat LP 10/10/3018 WBC 10, RBC 22K (traumatic), glu 47, prot 84 from 194, VDRL pending. - Seizures reported on 10/09-10/10 - CT head done showed mild atrophy. No acute intracranial abnormalities. Paranasal sinus disease and new opacification of multiple mastoid air cells on the right and a few on the left suggesting acute mastoiditis. - MRI brain repeat 10/10 significant bilateral mastoiditis, generalized brain atrophy and stable paranasal sinusitis 5) Neurosyphilis: CSF VDRL positive, off Ceftriaxone and back on IV Penicillin completed 21 days 6) Diarrhea: likely due to Giardiasis as Giardia antigen positive in stool, in immunocompromised patient. Completed several days of Flagyl, stopped on 10/03/2018. 7) Oral candidiasis: on fluconazole, will need to continue as prophylaxis till immune reconstitution. 8) A.fib: cardiology following. On Amiodarone. 9) HIV/AIDS: newly diagnosed. Risk factor is MSM behavior. CD4=4. VL=50,700. 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 We started him on Tenofovir, Emtricitabine + Dolutegravir on 09/30/2018, watch closely for IRIS. 10) Neutropenia: likely from HIV/CMV myelosuppression. Also probably worse from ganciclovir. r/o disseminated MAC, thus far cultures negative. 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 12) NGT-associated sinusitis/mastoiditis, NGT changed to OGT. Recs: - Discussion with sister who does not want to do any aggressive management (PEG/Trach) if prognosis is poor. I explained that his prognosis continues to be poor in light of not neurologic recover after finising IV penicillin for neurosyphilis and a week of ganciclovir for CMV. - consider neupogen as WBC is low - Renal is considering starting HD - stop vancomycin D5 - continue cefepime D5 of 7 - continue IV Ganciclovir 5 mg/kg 3 times a week - renally adjusted again today, continue till CMV PCR is <200 - renal con board - all antibiotics are renally adjusted for CrCl < 10 - completed IV Penicillin G 24 million units daily for 21 days on 10/08/2018 - will repeat CMV DNA PCR on 10/17/2018 - continue atovaquone and azithromycin prophylaxis - continue fluconazole 200 mg daily PO as prophylaxis - continue HAART: Tenofovir, Emtricitabine + Dolutegravir watch closely for IRIS - renally adjusted today - monitor daily CBC, BMP - s/p neupogen 1 dose on 10/05/2018, hematology on board agree with additional Neupogen as needed from ID standpoint Overall prognosis poor/complex case Will follow Alayna Menendez MD Infectious Diseases [employer] [facility] ([facility]) M [phone] O [phone] Subjective Date of service: 10/14/18 Principal diagnosis: low wbc Interval history: Patient remains alert but not following commands, intubated on CPAP, open eyes, no fever for 4 days ROS: unable to obtain Objective - Exam Narrative Exam: Constitutional: Intubated alert no follows commands open eyes in NAD Head, Ears, Nose: Normocephalic, atraumatic. External ears, nose normal Eyes: Conjunctivae/corneas clear. No icterus. No ptosis.no nystagmus Neck:no JVD, left anterior neck large hard nodule non tender Oral: ETT, OGT Cardiovascular: tachycardic Respiratory: distant BS GI: Soft, non-tender; bowel sounds normal. No peritoneal signs Musculoskeletal: No pedal edema, no cyanosis. Skin: No rash or abscess. Hem/Lymphatic: No palpable cervical or supraclavicular nodes. No lymphangitis Psych: alert Neurological: alert, moves right hand, does not move left hand PICC line 2/6 - Constitutional Vitals: Vital Signs Temp Pulse Resp BP Pulse Ox 98.8 F 79 14 115/67 100 10/14/18 20:00 10/14/18 19:52 10/14/18 19:52 10/14/18 19:13 10/14/18 19:13 Temperature -Last 24 Hours Temperature 98.8 F Temperature 97.5 F Temperature 97.8 F Temperature 97.7 F Temperature 99.4 F Temperature 98.8 F - Labs CBC & Chem 7: 10/14/18 Unknown 10/14/18 Unknown Labs: Abnormal lab results 10/14/18 10/14/18 10/14/18 Range/Units 00:01 05:20 09:39 WBC (4.5-11.0) K/mm3 RBC (3.65-5.03) M/mm3 Hgb (11.8-15.2) gm/dl Hct (35.5-45.6) % RDW (13.2-15.2) % Lymphocytes % (Manual) (13.4-35.0) % Eosinophils % (Manual) (0.0-4.3) % Seg Neutrophils # Man (1.8-7.7) K/mm3 Lymphocytes # (Manual) (1.2-5.4) K/mm3 Sodium 147 H (137-145) mmol/L Potassium 3.4 L (3.6-5.0) mmol/L Chloride 108.1 H (98-107) mmol/L Carbon Dioxide 16 L (22-30) mmol/L BUN 124 H (9-20) mg/dL Creatinine 6.7 H (0.8-1.5) mg/dL Glucose 144 H (75-100) mg/dL POC Glucose 134 H 171 H (70-105) Calcium 7.8 L (8.4-10.2) mg/dL Phosphorus (2.5-4.5) mg/dL 10/14/18 10/14/18 10/14/18 Range/Units 09:40 11:37 Unknown WBC 0.5 L* (4.5-11.0) K/mm3 RBC 2.80 L (3.65-5.03) M/mm3 Hgb 8.2 L (11.8-15.2) gm/dl Hct 25.2 L (35.5-45.6) % RDW 19.7 H (13.2-15.2) % Lymphocytes % (Manual) 10.0 L (13.4-35.0) % Eosinophils % (Manual) 10.0 H (0.0-4.3) % Seg Neutrophils # Man 0.4 L (1.8-7.7) K/mm3 Lymphocytes # (Manual) 0.1 L (1.2-5.4) K/mm3 Sodium (137-145) mmol/L Potassium (3.6-5.0) mmol/L Chloride (98-107) mmol/L Carbon Dioxide (22-30) mmol/L BUN (9-20) mg/dL Creatinine (0.8-1.5) mg/dL Glucose (75-100) mg/dL POC Glucose 164 H (70-105) Calcium (8.4-10.2) mg/dL Phosphorus 8.50 H (2.5-4.5) mg/dL 10/14/18 Range/Units Unknown WBC (4.5-11.0) K/mm3 RBC (3.65-5.03) M/mm3 Hgb (11.8-15.2) gm/dl Hct (35.5-45.6) % RDW (13.2-15.2) % Lymphocytes % (Manual) (13.4-35.0) % Eosinophils % (Manual) (0.0-4.3) % Seg Neutrophils # Man (1.8-7.7) K/mm3 Lymphocytes # (Manual) (1.2-5.4) K/mm3 Sodium (137-145) mmol/L Potassium (3.6-5.0) mmol/L Chloride (98-107) mmol/L Carbon Dioxide 13 L (22-30) mmol/L BUN 126 H (9-20) mg/dL Creatinine 7.7 H (0.8-1.5) mg/dL Glucose 153 H (75-100) mg/dL POC Glucose (70-105) Calcium 7.8 L (8.4-10.2) mg/dL Phosphorus (2.5-4.5) mg/dL
[2018-10-15] MEDS: ROBINUL PO SCH ×4 (01:20→17:25)
[2018-10-15] MEDS ORDERED: NACL 0.9% 1000 ML 1,000 ML ONE (03:00)
[2018-10-15] MEDS: PROVENTIL IH SCH ×4 (03:07→19:34)
[2018-10-15 04:29] LABS: Hematocrit 24.4 % (35.5-45.6); Hemoglobin 8.2 gm/dl (11.8-15.2); Mean Corpuscular HGB Conc 34 % (32-34); Mean Corpuscular Volume 90 fl (84-94); Platelet Count 237 K/mm3 (140-440); Red Blood Count 2.73 M/mm3 (3.65-5.03); Red Cell Distribution Width 18.8 % (13.2-15.2)
[2018-10-15 05:12] LABS: Alanine Aminotransferase 32 units/L (7-56); Albumin 2.3 g/dL (3.9-5); Calcium 7.7 mg/dL (8.4-10.2); Hemolysis Index 44
[2018-10-15 05:30] LABS: BUN/Creatinine Ratio 21; Blood Urea Nitrogen 127 mg/dL (9-20)
[2018-10-15] MEDS: SYNTHROID PO SCH (06:28)
[2018-10-15] MEDS: HEPARIN SUB-Q SCH ×3 (06:29→22:03)
--- NOTE | 2018-10-15 09:26 | Progress Note ---
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 He did not use condom consistently. - CD4=4 - VL=50,700 Elevated LFTs: resolved Neutropenia/thrombocytopenia Hypernatremia -VAP bundle addressed -Lung protective strategies -Antimicrobials per ID, HAART per ID - continue supplemental oxygen to keep sats > 90% - continue bronchodilators with pulmonary - continue daily SBT's, at this time mental status precludes liberation from MVS - monitor for drug-drug interactions - continue enteral nutrition as tolerated - PT/OT/ROM exercises as tolerated - mobility protocol for pressure ulcer prevention - continue GI & VTE prophylaxis -Re-culture if any fevers -Replete electrolytes as indicated -Need to have discussions with the sister re tracheostomy and PEG placement vs withdrawal of care. Case management/director of social media marketing will call to clarify. I will also reach out to the sister If she does want care withdrawn then hospice consult will be placed. - continue other care per attending / other consultants The high probability of a clinically significant, sudden or life threatening deterioration of the [cardiac, respiratory and neurologic] system(s) required my full and direct attention, intervention and personal management. The aggregate critical care time was [30] minutes. This time is in addition to time spent performing reported procedures but includes the following: [x] Data Review and interpretation [x] Patient assessment and monitoring of vital signs [x] Documentation Subjective Date of service: 10/15/18 Principal diagnosis: low wbc Interval history: 33 y/o male with no PMH; admitted on 09/11/2018 due to 4 days-AMS/behavioral changes, nausea, voimiting, diarrhea, weight loss and cough: Patient is seen today for: Severe sepsis (present on admission with fever, tachycardia, hypotension and elevated lactate); Acute hypoxemic Respiratory failure; Bilateral pneumonia; Acute encephalopathy (Toxic / Metabolic); Atrial Fibrillation with RVR; HIV-AIDS Seen and examined at bedside; 24hour events reviewed; nursing and respiratory care staff consulted; no adverse overnight events reported to me; resting peacefully in bed; generalized edema with ongoing diarrhea. No further fevers overnight, Oral secretions, awake but not obeying commands. Remains on MVS, PSV 10/6 with tidal volumes of about 350ml, not in any distress No new events overnight Per ID, sister is leaning towards withdrawal of care Objective Vital Signs - 12hr 10/14/18 10/14/18 10/14/18 22:00 22:42 23:00 Temperature Pulse Rate 79 76 82 Pulse Rate [ From Monitor] Pulse Rate [ Throughout] Respiratory 10 L 15 Rate Respiratory Rate [ Throughout] Blood Pressure 120/70 120/70 118/69 O2 Sat by Pulse 100 100 Oximetry 10/14/18 10/14/18 10/14/18 23:01 23:19 23:39 Temperature 97.5 F L Pulse Rate 77 74 Pulse Rate [ From Monitor] Pulse Rate [ Throughout] Respiratory 12 Rate Respiratory Rate [ Throughout] Blood Pressure 118/69 118/69 O2 Sat by Pulse 100 100 Oximetry 10/15/18 10/15/18 10/15/18 00:00 01:00 02:00 Temperature Pulse Rate 73 77 73 Pulse Rate [ 72 From Monitor] Pulse Rate [ Throughout] Respiratory 13 15 12 Rate Respiratory Rate [ Throughout] Blood Pressure 115/68 121/78 121/78 O2 Sat by Pulse 100 99 100 Oximetry 10/15/18 10/15/18 10/15/18 03:00 03:06 03:08 Temperature 97.3 F L Pulse Rate 79 79 Pulse Rate [ From Monitor] Pulse Rate [ 77 Throughout] Respiratory 17 Rate Respiratory 15 Rate [ Throughout] Blood Pressure 120/74 120/74 O2 Sat by Pulse 100 100 Oximetry 10/15/18 10/15/18 10/15/18 03:20 04:00 05:00 Temperature Pulse Rate 76 71 Pulse Rate [ 70 From Monitor] Pulse Rate [ 76 Throughout] Respiratory 15 11 L Rate Respiratory 15 Rate [ Throughout] Blood Pressure 120/71 130/67 O2 Sat by Pulse 100 100 Oximetry 10/15/18 10/15/18 10/15/18 06:00 07:00 07:23 Temperature Pulse Rate 70 68 Pulse Rate [ From Monitor] Pulse Rate [ 78 Throughout] Respiratory 14 11 L Rate Respiratory 18 Rate [ Throughout] Blood Pressure 131/69 132/72 O2 Sat by Pulse 100 100 Oximetry 10/15/18 10/15/18 08:00 08:05 Temperature 95.4 F L Pulse Rate 80 70 Pulse Rate [ From Monitor] Pulse Rate [ Throughout] Respiratory 14 16 Rate Respiratory Rate [ Throughout] Blood Pressure 139/72 131/69 O2 Sat by Pulse 100 100 Oximetry Constitutional: lethargic, agitated, appears uncomfortable, other (orally intubated ETT at 23cm) Eyes: non-icteric ENT: oropharynx moist, other (ETT 25 cm NIKA) Neck: supple, no lymphadenopathy, other (no thyromegaly) Effort: normal Ascultation: Bilateral: rales, rhonchi (scant) Percussion: Bilateral: not dull Cardiovascular: regular rate and rhythm, other (S1,S2, no murmurs, gallps or rubs) Gastrointestinal: normoactive bowel sounds, soft, non-tender, non-distended Integumentary: rash Extremities: no cyanosis, pulses normal, no ischemia or petechiae, edema Neurologic: non-focal exam (grossly), pupils equal and round, other (Left sided hemiparesis) Psychiatric: other (unable to assess) CBC and BMP: 10/16/18 07:50 10/16/18 07:50 ABG, PT/INR, D-dimer: ABG POC ABG pH 7.336 (7.35-7.45) L 10/12/18 13:30 POC ABG pCO2 31.5 (35-45) L 10/12/18 13:30 POC ABG pO2 122 (80-105) H 10/12/18 13:30 POC ABG HCO3 16.8 10/12/18 13:30 POC ABG Total CO2 18 10/12/18 13:30 POC ABG O2 Sat 99 10/12/18 13:30 PT/INR, D-dimer PT 16.0 Sec. (12.2-14.9) H 10/10/18 08:09 INR 1.20 (0.87-1.13) H 10/10/18 08:09 Abnormal lab findings: Abnormal Labs 09/11/18 09/11/18 09/11/18 18:00 18:00 18:00 WBC 1.9 L* RBC Hgb Hct RDW Plt Count 130 L Seg Neuts % (Manual) Lymphocytes % (Manual) Monocytes % (Manual) 16.0 H Eosinophils % (Manual) Basophils % (Manual) Nucleated RBC % Seg Neutrophils # Man 0.9 L Abs Lymphs (Manual) Lymphocytes # (Manual) 0.5 L Basophils # (Manual) PT INR APTT Heparin Anti-Xa Level POC ABG pH POC ABG pCO2 POC ABG pO2 Sodium 131 L Potassium Chloride Carbon Dioxide 17 L BUN 21 H Creatinine Glucose 126 H POC Glucose Lactic Acid 2.60 H* Calcium 8.1 L Phosphorus Magnesium Iron TIBC Ferritin AST 123 H ALT 115 H Total Creatine Kinase Total Protein Albumin 3.0 L Vitamin B12 Folate TSH Free T4 Urine WBC (Auto) Urine Creatinine Urine Chloride Urine Total Protein CSF VDRL Lymph Enumerat CD4/CD8 Absolute CD3 Count % CD4 Cells Absolute CD4 Count % CD8 Cells Absolute CD19 Count T.pallidum Ab (FTA-ABS) HIV-1 RNA PCR copies/ml HIV-1 RNA (PCR) log Miscellaneous Test 09/11/18 09/13/18 09/13/18 19:01 04:28 07:31 WBC 2.0 L RBC Hgb Hct RDW Plt Count 116 L Seg Neuts % (Manual) Lymphocytes % (Manual) Monocytes % (Manual) 8.0 H Eosinophils % (Manual) Basophils % (Manual) Nucleated RBC % Seg Neutrophils # Man 1.0 L Abs Lymphs (Manual) Lymphocytes # (Manual) 0.5 L Basophils # (Manual) PT INR APTT Heparin Anti-Xa Level POC ABG pH POC ABG pCO2 POC ABG pO2 Sodium Potassium Chloride 110.4 H Carbon Dioxide 19 L BUN Creatinine Glucose POC Glucose Lactic Acid 3.70 H* Calcium 7.9 L Phosphorus Magnesium Iron TIBC Ferritin AST ALT Total Creatine Kinase Total Protein Albumin Vitamin B12 Folate TSH Free T4 Urine WBC (Auto) Urine Creatinine Urine Chloride Urine Total Protein CSF VDRL Lymph Enumerat CD4/CD8 Absolute CD3 Count % CD4 Cells Absolute CD4 Count % CD8 Cells Absolute CD19 Count T.pallidum Ab (FTA-ABS) HIV-1 RNA PCR copies/ml HIV-1 RNA (PCR) log Miscellaneous Test 09/13/18 09/13/18 09/13/18 07:31 12:29 12:29 WBC RBC Hgb Hct RDW Plt Count Seg Neuts % (Manual) Lymphocytes % (Manual) Monocytes % (Manual) Eosinophils % (Manual) Basophils % (Manual) Nucleated RBC % Seg Neutrophils # Man Abs Lymphs (Manual) 309 L Lymphocytes # (Manual) Basophils # (Manual) PT INR APTT Heparin Anti-Xa Level POC ABG pH POC ABG pCO2 POC ABG pO2 Sodium Potassium Chloride Carbon Dioxide BUN Creatinine Glucose POC Glucose Lactic Acid Calcium Phosphorus Magnesium Iron TIBC Ferritin AST 70 H ALT 68 H Total Creatine Kinase Total Protein Albumin 2.5 L Vitamin B12 Folate TSH Free T4 Urine WBC (Auto) Urine Creatinine Urine Chloride Urine Total Protein CSF VDRL Lymph Enumerat CD4/CD8 0.01 L Absolute CD3 Count 220 L % CD4 Cells 1 L Absolute CD4 Count 4 L % CD8 Cells 70 H Absolute CD19 Count 54 L T.pallidum Ab (FTA-ABS) HIV-1 RNA PCR copies/ml 45670 H HIV-1 RNA (PCR) log 4.71 H Miscellaneous Test 09/13/18 09/14/18 09/14/18 12:29 07:17 16:34 WBC RBC Hgb Hct RDW Plt Count Seg Neuts % (Manual) Lymphocytes % (Manual) Monocytes % (Manual) Eosinophils % (Manual) Basophils % (Manual) Nucleated RBC % Seg Neutrophils # Man Abs Lymphs (Manual) Lymphocytes # (Manual) Basophils # (Manual) PT INR APTT Heparin Anti-Xa Level POC ABG pH POC ABG pCO2 POC ABG pO2 Sodium Potassium 3.4 L Chloride Carbon Dioxide 18 L BUN Creatinine Glucose 104 H POC Glucose Lactic Acid Calcium 7.6 L Phosphorus Magnesium Iron TIBC Ferritin AST 49 H ALT Total Creatine Kinase Total Protein Albumin 2.5 L Vitamin B12 Folate TSH Free T4 Urine WBC (Auto) Urine Creatinine Urine Chloride Urine Total Protein CSF VDRL Lymph Enumerat CD4/CD8 Absolute CD3 Count % CD4 Cells Absolute CD4 Count % CD8 Cells Absolute CD19 Count T.pallidum Ab (FTA-ABS) Reactive H HIV-1 RNA PCR copies/ml HIV-1 RNA (PCR) log Miscellaneous Test Flexitest 1 H 09/15/18 09/15/18 09/15/18 05:05 05:05 Unknown WBC 1.6 L* RBC Hgb 10.4 L Hct 31.1 L D RDW Plt Count 113 L Seg Neuts % (Manual) Lymphocytes % (Manual) Monocytes % (Manual) Eosinophils % (Manual) Basophils % (Manual) Nucleated RBC % Seg Neutrophils # Man Abs Lymphs (Manual) Lymphocytes # (Manual) Basophils # (Manual) PT INR APTT Heparin Anti-Xa Level POC ABG pH POC ABG pCO2 POC ABG pO2 Sodium Potassium Chloride 107.9 H Carbon Dioxide 18 L BUN 6 L Creatinine Glucose POC Glucose Lactic Acid Calcium 7.4 L Phosphorus Magnesium Iron TIBC Ferritin AST ALT Total Creatine Kinase Total Protein Albumin Vitamin B12 Folate TSH Free T4 Urine WBC (Auto) Urine Creatinine Urine Chloride Urine Total Protein CSF VDRL Reactive 1:8 H Lymph Enumerat CD4/CD8 Absolute CD3 Count % CD4 Cells Absolute CD4 Count % CD8 Cells Absolute CD19 Count T.pallidum Ab (FTA-ABS) HIV-1 RNA PCR copies/ml HIV-1 RNA (PCR) log Miscellaneous Test 09/16/18 09/16/18 09/16/18 06:55 11:41 11:41 WBC 2.8 L RBC Hgb 10.9 L Hct 33.5 L RDW Plt Count 135 L Seg Neuts % (Manual) Lymphocytes % (Manual) Monocytes % (Manual) Eosinophils % (Manual) Basophils % (Manual) Nucleated RBC % Seg Neutrophils # Man Abs Lymphs (Manual) Lymphocytes # (Manual) Basophils # (Manual) PT INR APTT Heparin Anti-Xa Level POC ABG pH POC ABG pCO2 POC ABG pO2 Sodium Potassium Chloride Carbon Dioxide BUN Creatinine Glucose POC Glucose Lactic Acid Calcium Phosphorus Magnesium Iron TIBC Ferritin AST ALT Total Creatine Kinase Total Protein Albumin Vitamin B12 Folate TSH 4.210 H Free T4 0.72 L Urine WBC (Auto) Urine Creatinine Urine Chloride Urine Total Protein CSF VDRL Lymph Enumerat CD4/CD8 Absolute CD3 Count % CD4 Cells Absolute CD4 Count % CD8 Cells Absolute CD19 Count T.pallidum Ab (FTA-ABS) HIV-1 RNA PCR copies/ml HIV-1 RNA (PCR) log Miscellaneous Test 09/16/18 09/16/18 09/17/18 11:41 15:43 05:13 WBC 2.0 L RBC Hgb 10.9 L Hct 32.7 L RDW Plt Count Seg Neuts % (Manual) Lymphocytes % (Manual) Monocytes % (Manual) Eosinophils % (Manual) Basophils % (Manual) Nucleated RBC % Seg Neutrophils # Man Abs Lymphs (Manual) Lymphocytes # (Manual) Basophils # (Manual) PT INR APTT Heparin Anti-Xa Level POC ABG pH POC ABG pCO2 29.3 L POC ABG pO2 70 L Sodium Potassium Chloride Carbon Dioxide BUN Creatinine Glucose POC Glucose Lactic Acid Calcium Phosphorus Magnesium Iron TIBC Ferritin AST ALT Total Creatine Kinase Total Protein Albumin Vitamin B12 934.5 H Folate TSH Free T4 Urine WBC (Auto) Urine Creatinine Urine Chloride Urine Total Protein CSF VDRL Lymph Enumerat CD4/CD8 Absolute CD3 Count % CD4 Cells Absolute CD4 Count % CD8 Cells Absolute CD19 Count T.pallidum Ab (FTA-ABS) HIV-1 RNA PCR copies/ml HIV-1 RNA (PCR) log Miscellaneous Test 09/17/18 09/17/18 09/18/18 05:13 21:57 12:46 WBC RBC Hgb Hct RDW Plt Count Seg Neuts % (Manual) Lymphocytes % (Manual) Monocytes % (Manual) Eosinophils % (Manual) Basophils % (Manual) Nucleated RBC % Seg Neutrophils # Man Abs Lymphs (Manual) Lymphocytes # (Manual) Basophils # (Manual) PT INR APTT Heparin Anti-Xa Level POC ABG pH POC ABG pCO2 POC ABG pO2 Sodium Potassium Chloride 107.2 H Carbon Dioxide 21 L BUN 3 L Creatinine 0.7 L Glucose POC Glucose 108 H Lactic Acid Calcium 7.9 L Phosphorus Magnesium Iron TIBC Ferritin AST ALT Total Creatine Kinase Total Protein 6.1 L Albumin 2.6 L Vitamin B12 Folate TSH Free T4 0.75 L Urine WBC (Auto) Urine Creatinine Urine Chloride Urine Total Protein CSF VDRL Lymph Enumerat CD4/CD8 Absolute CD3 Count % CD4 Cells Absolute CD4 Count % CD8 Cells Absolute CD19 Count T.pallidum Ab (FTA-ABS) HIV-1 RNA PCR copies/ml HIV-1 RNA (PCR) log Miscellaneous Test 09/18/18 09/19/18 09/19/18 12:46 04:57 04:57 WBC 2.1 L RBC Hgb 11.4 L Hct 34.2 L RDW Plt Count Seg Neuts % (Manual) Lymphocytes % (Manual) Monocytes % (Manual) Eosinophils % (Manual) Basophils % (Manual) Nucleated RBC % Seg Neutrophils # Man Abs Lymphs (Manual) Lymphocytes # (Manual) Basophils # (Manual) PT INR APTT Heparin Anti-Xa Level POC ABG pH POC ABG pCO2 POC ABG pO2 Sodium Potassium Chloride Carbon Dioxide 19 L BUN 6 L Creatinine Glucose POC Glucose Lactic Acid Calcium 7.9 L Phosphorus Magnesium Iron TIBC Ferritin AST ALT Total Creatine Kinase Total Protein Albumin Vitamin B12 Folate TSH 5.190 H Free T4 Urine WBC (Auto) Urine Creatinine Urine Chloride Urine Total Protein CSF VDRL Lymph Enumerat CD4/CD8 Absolute CD3 Count % CD4 Cells Absolute CD4 Count % CD8 Cells Absolute CD19 Count T.pallidum Ab (FTA-ABS) HIV-1 RNA PCR copies/ml HIV-1 RNA (PCR) log Miscellaneous Test 09/19/18 09/19/18 09/20/18 15:00 15:00 05:33 WBC RBC Hgb Hct RDW Plt Count Seg Neuts % (Manual) Lymphocytes % (Manual) Monocytes % (Manual) Eosinophils % (Manual) Basophils % (Manual) Nucleated RBC % Seg Neutrophils # Man Abs Lymphs (Manual) Lymphocytes # (Manual) Basophils # (Manual) PT INR APTT Heparin Anti-Xa Level POC ABG pH POC ABG pCO2 POC ABG pO2 Sodium 136 L Potassium Chloride Carbon Dioxide 19 L BUN 7 L Creatinine Glucose POC Glucose Lactic Acid Calcium Phosphorus Magnesium Iron TIBC Ferritin AST ALT Total Creatine Kinase Total Protein Albumin Vitamin B12 Folate TSH Free T4 Urine WBC (Auto) Urine Creatinine Urine Chloride Urine Total Protein CSF VDRL Reactive 1:4 H Lymph Enumerat CD4/CD8 Absolute CD3 Count % CD4 Cells Absolute CD4 Count % CD8 Cells Absolute CD19 Count T.pallidum Ab (FTA-ABS) HIV-1 RNA PCR copies/ml HIV-1 RNA (PCR) log Miscellaneous Test Flexitest 1 H 09/20/18 09/21/18 09/21/18 06:52 01:06 03:49 WBC 2.5 L RBC Hgb Hct RDW Plt Count Seg Neuts % (Manual) Lymphocytes % (Manual) Monocytes % (Manual) Eosinophils % (Manual) Basophils % (Manual) Nucleated RBC % Seg Neutrophils # Man Abs Lymphs (Manual) Lymphocytes # (Manual) Basophils # (Manual) PT INR APTT Heparin Anti-Xa Level POC ABG pH 7.159 L POC ABG pCO2 32.9 L 70.0 H POC ABG pO2 62 L 254 H Sodium Potassium Chloride Carbon Dioxide BUN Creatinine Glucose POC Glucose Lactic Acid Calcium Phosphorus Magnesium Iron TIBC Ferritin AST ALT Total Creatine Kinase Total Protein Albumin Vitamin B12 Folate TSH Free T4 Urine WBC (Auto) Urine Creatinine Urine Chloride Urine Total Protein CSF VDRL Lymph Enumerat CD4/CD8 Absolute CD3 Count % CD4 Cells Absolute CD4 Count % CD8 Cells Absolute CD19 Count T.pallidum Ab (FTA-ABS) HIV-1 RNA PCR copies/ml HIV-1 RNA (PCR) log Miscellaneous Test 09/21/18 09/21/18 09/21/18 04:15 04:15 04:25 WBC 3.1 L RBC Hgb 11.6 L Hct RDW Plt Count Seg Neuts % (Manual) Lymphocytes % (Manual) Monocytes % (Manual) 12.0 H Eosinophils % (Manual) Basophils % (Manual) Nucleated RBC % Seg Neutrophils # Man 1.6 L Abs Lymphs (Manual) Lymphocytes # (Manual) 0.5 L Basophils # (Manual) PT INR APTT Heparin Anti-Xa Level POC ABG pH POC ABG pCO2 POC ABG pO2 Sodium Potassium 6.1 H* D Chloride Carbon Dioxide 19 L BUN Creatinine Glucose 108 H POC Glucose Lactic Acid Calcium Phosphorus Magnesium Iron TIBC Ferritin AST ALT Total Creatine Kinase 685 H Total Protein Albumin Vitamin B12 Folate TSH Free T4 Urine WBC (Auto) Urine Creatinine Urine Chloride Urine Total Protein CSF VDRL Lymph Enumerat CD4/CD8 Absolute CD3 Count % CD4 Cells Absolute CD4 Count % CD8 Cells Absolute CD19 Count T.pallidum Ab (FTA-ABS) HIV-1 RNA PCR copies/ml HIV-1 RNA (PCR) log Miscellaneous Test 09/21/18 09/21/18 09/21/18 09:59 10:07 11:00 WBC RBC Hgb 11.7 L Hct RDW Plt Count Seg Neuts % (Manual) Lymphocytes % (Manual) Monocytes % (Manual) Eosinophils % (Manual) Basophils % (Manual) Nucleated RBC % Seg Neutrophils # Man Abs Lymphs (Manual) Lymphocytes # (Manual) Basophils # (Manual) PT INR APTT Heparin Anti-Xa Level POC ABG pH 7.301 L POC ABG pCO2 POC ABG pO2 109 H Sodium Potassium 6.5 H* Chloride Carbon Dioxide 18 L BUN Creatinine 2.1 H D Glucose POC Glucose Lactic Acid Calcium 8.1 L Phosphorus Magnesium Iron TIBC Ferritin AST 94 H ALT Total Creatine Kinase Total Protein Albumin 2.8 L Vitamin B12 Folate TSH Free T4 Urine WBC (Auto) Urine Creatinine Urine Chloride Urine Total Protein CSF VDRL Lymph Enumerat CD4/CD8 Absolute CD3 Count % CD4 Cells Absolute CD4 Count % CD8 Cells Absolute CD19 Count T.pallidum Ab (FTA-ABS) HIV-1 RNA PCR copies/ml HIV-1 RNA (PCR) log Miscellaneous Test 09/21/18 09/21/18 09/21/18 15:00 21:54 21:54 WBC RBC Hgb Hct RDW Plt Count Seg Neuts % (Manual) Lymphocytes % (Manual) Monocytes % (Manual) Eosinophils % (Manual) Basophils % (Manual) Nucleated RBC % Seg Neutrophils # Man Abs Lymphs (Manual) Lymphocytes # (Manual) Basophils # (Manual) PT 19.9 H INR 1.65 H APTT 40.9 H Heparin Anti-Xa Level 0.98 H POC ABG pH POC ABG pCO2 POC ABG pO2 Sodium Potassium 5.2 H Chloride Carbon Dioxide BUN Creatinine Glucose POC Glucose Lactic Acid Calcium Phosphorus Magnesium Iron TIBC Ferritin AST ALT Total Creatine Kinase Total Protein Albumin Vitamin B12 Folate TSH Free T4 Urine WBC (Auto) Urine Creatinine Urine Chloride Urine Total Protein CSF VDRL Lymph Enumerat CD4/CD8 Absolute CD3 Count % CD4 Cells Absolute CD4 Count % CD8 Cells Absolute CD19 Count T.pallidum Ab (FTA-ABS) HIV-1 RNA PCR copies/ml HIV-1 RNA (PCR) log Miscellaneous Test 09/21/18 09/22/18 09/22/18 22:57 03:01 05:27 WBC RBC Hgb Hct RDW Plt Count Seg Neuts % (Manual) Lymphocytes % (Manual) Monocytes % (Manual) Eosinophils % (Manual) Basophils % (Manual) Nucleated RBC % Seg Neutrophils # Man Abs Lymphs (Manual) Lymphocytes # (Manual) Basophils # (Manual) PT INR APTT Heparin Anti-Xa Level POC ABG pH POC ABG pCO2 32.7 L POC ABG pO2 Sodium Potassium Chloride Carbon Dioxide BUN Creatinine Glucose POC Glucose 124 H 128 H Lactic Acid Calcium Phosphorus Magnesium Iron TIBC Ferritin AST ALT Total Creatine Kinase Total Protein Albumin Vitamin B12 Folate TSH Free T4 Urine WBC (Auto) Urine Creatinine Urine Chloride Urine Total Protein CSF VDRL Lymph Enumerat CD4/CD8 Absolute CD3 Count % CD4 Cells Absolute CD4 Count % CD8 Cells Absolute CD19 Count T.pallidum Ab (FTA-ABS) HIV-1 RNA PCR copies/ml HIV-1 RNA (PCR) log Miscellaneous Test 09/22/18 09/22/18 09/22/18 07:00 07:00 11:32 WBC 1.8 L* RBC 3.59 L Hgb 10.1 L Hct 30.8 L RDW Plt Count 126 L Seg Neuts % (Manual) Lymphocytes % (Manual) Monocytes % (Manual) Eosinophils % (Manual) Basophils % (Manual) Nucleated RBC % Seg Neutrophils # Man Abs Lymphs (Manual) Lymphocytes # (Manual) Basophils # (Manual) PT INR APTT Heparin Anti-Xa Level POC ABG pH POC ABG pCO2 POC ABG pO2 Sodium Potassium Chloride Carbon Dioxide BUN 27 H Creatinine 2.0 H Glucose 128 H POC Glucose 123 H Lactic Acid Calcium 6.9 L Phosphorus Magnesium Iron TIBC Ferritin AST ALT Total Creatine Kinase Total Protein Albumin Vitamin B12 Folate TSH Free T4 Urine WBC (Auto) Urine Creatinine Urine Chloride Urine Total Protein CSF VDRL Lymph Enumerat CD4/CD8 Absolute CD3 Count % CD4 Cells Absolute CD4 Count % CD8 Cells Absolute CD19 Count T.pallidum Ab (FTA-ABS) HIV-1 RNA PCR copies/ml HIV-1 RNA (PCR) log Miscellaneous Test 09/22/18 09/22/18 09/22/18 15:52 18:18 23:52 WBC RBC Hgb Hct RDW Plt Count Seg Neuts % (Manual) Lymphocytes % (Manual) Monocytes % (Manual) Eosinophils % (Manual) Basophils % (Manual) Nucleated RBC % Seg Neutrophils # Man Abs Lymphs (Manual) Lymphocytes # (Manual) Basophils # (Manual) PT INR APTT Heparin Anti-Xa Level POC ABG pH POC ABG pCO2 48.7 H POC ABG pO2 Sodium Potassium Chloride Carbon Dioxide BUN Creatinine Glucose POC Glucose 110 H 124 H Lactic Acid Calcium Phosphorus Magnesium Iron TIBC Ferritin AST ALT Total Creatine Kinase Total Protein Albumin Vitamin B12 Folate TSH Free T4 Urine WBC (Auto) Urine Creatinine Urine Chloride Urine Total Protein CSF VDRL Lymph Enumerat CD4/CD8 Absolute CD3 Count % CD4 Cells Absolute CD4 Count % CD8 Cells Absolute CD19 Count T.pallidum Ab (FTA-ABS) HIV-1 RNA PCR copies/ml HIV-1 RNA (PCR) log Miscellaneous Test 09/23/18 09/23/18 09/23/18 04:10 05:55 05:55 WBC RBC Hgb 10.0 L Hct 30.3 L RDW Plt Count 117 L Seg Neuts % (Manual) Lymphocytes % (Manual) Monocytes % (Manual) Eosinophils % (Manual) Basophils % (Manual) Nucleated RBC % Seg Neutrophils # Man Abs Lymphs (Manual) Lymphocytes # (Manual) Basophils # (Manual) PT INR APTT Heparin Anti-Xa Level 0.26 L POC ABG pH POC ABG pCO2 POC ABG pO2 144 H Sodium Potassium Chloride Carbon Dioxide BUN Creatinine Glucose POC Glucose Lactic Acid Calcium Phosphorus Magnesium Iron TIBC Ferritin AST ALT Total Creatine Kinase Total Protein Albumin Vitamin B12 Folate TSH Free T4 Urine WBC (Auto) Urine Creatinine Urine Chloride Urine Total Protein CSF VDRL Lymph Enumerat CD4/CD8 Absolute CD3 Count % CD4 Cells Absolute CD4 Count % CD8 Cells Absolute CD19 Count T.pallidum Ab (FTA-ABS) HIV-1 RNA PCR copies/ml HIV-1 RNA (PCR) log Miscellaneous Test 09/23/18 09/23/18 09/23/18 08:10 08:10 23:57 WBC 1.3 L* RBC 3.53 L Hgb 9.9 L Hct 30.0 L RDW Plt Count 119 L Seg Neuts % (Manual) Lymphocytes % (Manual) Monocytes % (Manual) Eosinophils % (Manual) Basophils % (Manual) Nucleated RBC % Seg Neutrophils # Man Abs Lymphs (Manual) Lymphocytes # (Manual) Basophils # (Manual) PT INR APTT Heparin Anti-Xa Level POC ABG pH POC ABG pCO2 POC ABG pO2 Sodium Potassium Chloride Carbon Dioxide BUN Creatinine Glucose 122 H POC Glucose 115 H Lactic Acid Calcium 6.9 L Phosphorus Magnesium Iron TIBC Ferritin AST ALT Total Creatine Kinase Total Protein Albumin Vitamin B12 Folate TSH Free T4 Urine WBC (Auto) Urine Creatinine Urine Chloride Urine Total Protein CSF VDRL Lymph Enumerat CD4/CD8 Absolute CD3 Count % CD4 Cells Absolute CD4 Count % CD8 Cells Absolute CD19 Count T.pallidum Ab (FTA-ABS) HIV-1 RNA PCR copies/ml HIV-1 RNA (PCR) log Miscellaneous Test 09/24/18 09/24/18 09/24/18 12:04 14:42 18:10 WBC RBC Hgb Hct RDW Plt Count Seg Neuts % (Manual) Lymphocytes % (Manual) Monocytes % (Manual) Eosinophils % (Manual) Basophils % (Manual) Nucleated RBC % Seg Neutrophils # Man Abs Lymphs (Manual) Lymphocytes # (Manual) Basophils # (Manual) PT INR APTT Heparin Anti-Xa Level 0.76 H POC ABG pH POC ABG pCO2 POC ABG pO2 Sodium Potassium Chloride Carbon Dioxide BUN Creatinine Glucose POC Glucose 111 H 138 H Lactic Acid Calcium Phosphorus Magnesium Iron TIBC Ferritin AST ALT Total Creatine Kinase Total Protein Albumin Vitamin B12 Folate TSH Free T4 Urine WBC (Auto) Urine Creatinine Urine Chloride Urine Total Protein CSF VDRL Lymph Enumerat CD4/CD8 Absolute CD3 Count % CD4 Cells Absolute CD4 Count % CD8 Cells Absolute CD19 Count T.pallidum Ab (FTA-ABS) HIV-1 RNA PCR copies/ml HIV-1 RNA (PCR) log Miscellaneous Test 09/25/18 09/25/18 09/25/18 03:45 04:24 14:20 WBC RBC Hgb 9.7 L Hct 29.4 L RDW Plt Count 104 L Seg Neuts % (Manual) Lymphocytes % (Manual) Monocytes % (Manual) Eosinophils % (Manual) Basophils % (Manual) Nucleated RBC % Seg Neutrophils # Man Abs Lymphs (Manual) Lymphocytes # (Manual) Basophils # (Manual) PT INR APTT Heparin Anti-Xa Level POC ABG pH 7.460 H POC ABG pCO2 32.9 L POC ABG pO2 Sodium Potassium 3.5 L Chloride 110.3 H Carbon Dioxide BUN Creatinine Glucose 105 H POC Glucose Lactic Acid Calcium 6.7 L Phosphorus Magnesium Iron TIBC Ferritin AST 633 H ALT 481 H Total Creatine Kinase Total Protein 4.8 L D Albumin 1.9 L Vitamin B12 Folate TSH Free T4 Urine WBC (Auto) Urine Creatinine Urine Chloride Urine Total Protein CSF VDRL Lymph Enumerat CD4/CD8 Absolute CD3 Count % CD4 Cells Absolute CD4 Count % CD8 Cells Absolute CD19 Count T.pallidum Ab (FTA-ABS) HIV-1 RNA PCR copies/ml HIV-1 RNA (PCR) log Miscellaneous Test 09/26/18 09/26/18 09/26/18 06:15 06:15 10:43 WBC 1.2 L* RBC 3.32 L Hgb 9.2 L Hct 28.6 L RDW Plt Count 97 L Seg Neuts % (Manual) 24.0 L Lymphocytes % (Manual) 43.0 H Monocytes % (Manual) 19.0 H Eosinophils % (Manual) 8.0 H Basophils % (Manual) 2.0 H Nucleated RBC % 3.0 H Seg Neutrophils # Man 0.0 L Abs Lymphs (Manual) Lymphocytes # (Manual) 0.0 L Basophils # (Manual) PT INR APTT Heparin Anti-Xa Level POC ABG pH 7.459 H POC ABG pCO2 POC ABG pO2 141 H Sodium Potassium Chloride 112.8 H Carbon Dioxide BUN Creatinine Glucose 110 H POC Glucose Lactic Acid Calcium 7.0 L Phosphorus 0.90 L* Magnesium Iron TIBC Ferritin AST 362 H ALT 360 H Total Creatine Kinase Total Protein 4.9 L Albumin 1.5 L Vitamin B12 Folate TSH Free T4 Urine WBC (Auto) Urine Creatinine Urine Chloride Urine Total Protein CSF VDRL Lymph Enumerat CD4/CD8 Absolute CD3 Count % CD4 Cells Absolute CD4 Count % CD8 Cells Absolute CD19 Count T.pallidum Ab (FTA-ABS) HIV-1 RNA PCR copies/ml HIV-1 RNA (PCR) log Miscellaneous Test 09/26/18 09/27/18 09/28/18 13:56 04:11 07:49 WBC RBC Hgb 9.1 L Hct 29.1 L RDW Plt Count 96 L Seg Neuts % (Manual) Lymphocytes % (Manual) Monocytes % (Manual) Eosinophils % (Manual) Basophils % (Manual) Nucleated RBC % Seg Neutrophils # Man Abs Lymphs (Manual) Lymphocytes # (Manual) Basophils # (Manual) PT INR APTT Heparin Anti-Xa Level POC ABG pH POC ABG pCO2 POC ABG pO2 Sodium 146 H Potassium Chloride 111.6 H Carbon Dioxide BUN Creatinine Glucose POC Glucose 135 H Lactic Acid Calcium 7.4 L Phosphorus Magnesium Iron TIBC Ferritin AST ALT Total Creatine Kinase Total Protein Albumin Vitamin B12 Folate TSH Free T4 Urine WBC (Auto) Urine Creatinine Urine Chloride Urine Total Protein CSF VDRL Lymph Enumerat CD4/CD8 Absolute CD3 Count % CD4 Cells Absolute CD4 Count % CD8 Cells Absolute CD19 Count T.pallidum Ab (FTA-ABS) HIV-1 RNA PCR copies/ml HIV-1 RNA (PCR) log Miscellaneous Test 09/28/18 09/29/18 09/29/18 10:43 05:00 05:00 WBC 1.2 L* RBC 3.13 L Hgb 8.6 L Hct 27.3 L RDW Plt Count 137 L Seg Neuts % (Manual) Lymphocytes % (Manual) Monocytes % (Manual) 16.0 H Eosinophils % (Manual) Basophils % (Manual) Nucleated RBC % 4.0 H Seg Neutrophils # Man 0.5 L Abs Lymphs (Manual) Lymphocytes # (Manual) 0.3 L Basophils # (Manual) PT INR APTT Heparin Anti-Xa Level POC ABG pH 7.300 L POC ABG pCO2 53.9 H POC ABG pO2 Sodium 147 H Potassium 3.4 L Chloride 114.5 H Carbon Dioxide BUN Creatinine Glucose POC Glucose Lactic Acid Calcium 7.7 L Phosphorus Magnesium Iron TIBC Ferritin AST 69 H ALT 110 H Total Creatine Kinase Total Protein 5.2 L Albumin 1.9 L Vitamin B12 Folate TSH Free T4 Urine WBC (Auto) Urine Creatinine Urine Chloride Urine Total Protein CSF VDRL Lymph Enumerat CD4/CD8 Absolute CD3 Count % CD4 Cells Absolute CD4 Count % CD8 Cells Absolute CD19 Count T.pallidum Ab (FTA-ABS) HIV-1 RNA PCR copies/ml HIV-1 RNA (PCR) log Miscellaneous Test 09/29/18 09/29/18 09/30/18 06:07 13:22 05:19 WBC 0.9 L* RBC 3.03 L Hgb 8.6 L Hct 25.9 L RDW Plt Count Seg Neuts % (Manual) Lymphocytes % (Manual) Monocytes % (Manual) Eosinophils % (Manual) Basophils % (Manual) Nucleated RBC % Seg Neutrophils # Man Abs Lymphs (Manual) Lymphocytes # (Manual) Basophils # (Manual) PT INR APTT Heparin Anti-Xa Level POC ABG pH POC ABG pCO2 46.9 H POC ABG pO2 Sodium Potassium Chloride Carbon Dioxide BUN Creatinine Glucose POC Glucose 109 H Lactic Acid Calcium Phosphorus Magnesium Iron TIBC Ferritin AST ALT Total Creatine Kinase Total Protein Albumin Vitamin B12 Folate TSH Free T4 Urine WBC (Auto) Urine Creatinine Urine Chloride Urine Total Protein CSF VDRL Lymph Enumerat CD4/CD8 Absolute CD3 Count % CD4 Cells Absolute CD4 Count % CD8 Cells Absolute CD19 Count T.pallidum Ab (FTA-ABS) HIV-1 RNA PCR copies/ml HIV-1 RNA (PCR) log Miscellaneous Test 09/30/18 09/30/18 09/30/18 05:19 11:14 23:28 WBC RBC Hgb Hct RDW Plt Count Seg Neuts % (Manual) Lymphocytes % (Manual) Monocytes % (Manual) Eosinophils % (Manual) Basophils % (Manual) Nucleated RBC % Seg Neutrophils # Man Abs Lymphs (Manual) Lymphocytes # (Manual) Basophils # (Manual) PT INR APTT Heparin Anti-Xa Level 0.72 H POC ABG pH POC ABG pCO2 46.6 H POC ABG pO2 Sodium 150 H Potassium Chloride 115.2 H Carbon Dioxide BUN Creatinine Glucose POC Glucose Lactic Acid Calcium 7.9 L Phosphorus Magnesium Iron TIBC Ferritin AST ALT Total Creatine Kinase Total Protein Albumin Vitamin B12 Folate TSH Free T4 Urine WBC (Auto) Urine Creatinine Urine Chloride Urine Total Protein CSF VDRL Lymph Enumerat CD4/CD8 Absolute CD3 Count % CD4 Cells Absolute CD4 Count % CD8 Cells Absolute CD19 Count T.pallidum Ab (FTA-ABS) HIV-1 RNA PCR copies/ml HIV-1 RNA (PCR) log Miscellaneous Test 10/01/18 10/01/18 10/02/18 04:55 04:55 07:15 WBC 0.9 L* 0.7 L* RBC 3.01 L 2.92 L Hgb 8.4 L 8.4 L Hct 26.0 L 24.9 L RDW Plt Count Seg Neuts % (Manual) Lymphocytes % (Manual) Monocytes % (Manual) Eosinophils % (Manual) Basophils % (Manual) Nucleated RBC % Seg Neutrophils # Man Abs Lymphs (Manual) Lymphocytes # (Manual) Basophils # (Manual) PT INR APTT Heparin Anti-Xa Level POC ABG pH POC ABG pCO2 POC ABG pO2 Sodium 147 H Potassium 3.4 L Chloride 113.1 H Carbon Dioxide BUN 22 H Creatinine Glucose POC Glucose Lactic Acid Calcium 7.3 L Phosphorus Magnesium Iron TIBC Ferritin AST ALT Total Creatine Kinase Total Protein Albumin Vitamin B12 Folate TSH Free T4 Urine WBC (Auto) Urine Creatinine Urine Chloride Urine Total Protein CSF VDRL Lymph Enumerat CD4/CD8 Absolute CD3 Count % CD4 Cells Absolute CD4 Count % CD8 Cells Absolute CD19 Count T.pallidum Ab (FTA-ABS) HIV-1 RNA PCR copies/ml HIV-1 RNA (PCR) log Miscellaneous Test 10/02/18 10/03/18 10/03/18 07:15 06:12 06:12 WBC 0.8 L* RBC 2.96 L Hgb 8.5 L Hct 25.9 L RDW 15.4 H Plt Count Seg Neuts % (Manual) Lymphocytes % (Manual) Monocytes % (Manual) Eosinophils % (Manual) Basophils % (Manual) Nucleated RBC % Seg Neutrophils # Man Abs Lymphs (Manual) Lymphocytes # (Manual) Basophils # (Manual) PT INR APTT Heparin Anti-Xa Level POC ABG pH POC ABG pCO2 POC ABG pO2 Sodium Potassium 3.4 L 3.4 L Chloride 108.3 H Carbon Dioxide BUN Creatinine Glucose POC Glucose Lactic Acid Calcium 7.6 L 7.4 L Phosphorus Magnesium Iron TIBC Ferritin AST ALT Total Creatine Kinase Total Protein Albumin Vitamin B12 Folate TSH Free T4 Urine WBC (Auto) Urine Creatinine Urine Chloride Urine Total Protein CSF VDRL Lymph Enumerat CD4/CD8 Absolute CD3 Count % CD4 Cells Absolute CD4 Count % CD8 Cells Absolute CD19 Count T.pallidum Ab (FTA-ABS) HIV-1 RNA PCR copies/ml HIV-1 RNA (PCR) log Miscellaneous Test 10/03/18 10/03/18 10/04/18 11:45 13:23 01:40 WBC RBC Hgb Hct RDW Plt Count Seg Neuts % (Manual) Lymphocytes % (Manual) Monocytes % (Manual) Eosinophils % (Manual) Basophils % (Manual) Nucleated RBC % Seg Neutrophils # Man Abs Lymphs (Manual) Lymphocytes # (Manual) Basophils # (Manual) PT INR APTT Heparin Anti-Xa Level 1.34 H 0.26 L POC ABG pH POC ABG pCO2 POC ABG pO2 Sodium Potassium Chloride Carbon Dioxide BUN Creatinine Glucose POC Glucose Lactic Acid Calcium Phosphorus Magnesium 1.40 L Iron TIBC Ferritin AST ALT Total Creatine Kinase Total Protein Albumin Vitamin B12 Folate TSH Free T4 Urine WBC (Auto) Urine Creatinine Urine Chloride Urine Total Protein CSF VDRL Lymph Enumerat CD4/CD8 Absolute CD3 Count % CD4 Cells Absolute CD4 Count % CD8 Cells Absolute CD19 Count T.pallidum Ab (FTA-ABS) HIV-1 RNA PCR copies/ml HIV-1 RNA (PCR) log Miscellaneous Test 10/04/18 10/04/18 10/06/18 04:45 04:45 09:40 WBC 0.8 L* RBC 3.11 L Hgb 9.0 L Hct 27.4 L RDW 15.4 H Plt Count Seg Neuts % (Manual) Lymphocytes % (Manual) Monocytes % (Manual) Eosinophils % (Manual) Basophils % (Manual) Nucleated RBC % Seg Neutrophils # Man Abs Lymphs (Manual) Lymphocytes # (Manual) Basophils # (Manual) PT INR APTT Heparin Anti-Xa Level POC ABG pH POC ABG pCO2 POC ABG pO2 Sodium Potassium Chloride Carbon Dioxide BUN Creatinine 0.7 L Glucose POC Glucose Lactic Acid Calcium 7.5 L Phosphorus Magnesium Iron 35 L TIBC 157 L Ferritin AST ALT Total Creatine Kinase Total Protein Albumin Vitamin B12 Folate TSH Free T4 Urine WBC (Auto) Urine Creatinine Urine Chloride Urine Total Protein CSF VDRL Lymph Enumerat CD4/CD8 Absolute CD3 Count % CD4 Cells Absolute CD4 Count % CD8 Cells Absolute CD19 Count T.pallidum Ab (FTA-ABS) HIV-1 RNA PCR copies/ml HIV-1 RNA (PCR) log Miscellaneous Test 10/06/18 10/06/18 10/07/18 09:40 09:40 04:20 WBC 1.1 L* RBC 3.07 L Hgb 9.1 L Hct 27.3 L RDW 20.3 H Plt Count Seg Neuts % (Manual) Lymphocytes % (Manual) Monocytes % (Manual) Eosinophils % (Manual) Basophils % (Manual) Nucleated RBC % Seg Neutrophils # Man 0.7 L Abs Lymphs (Manual) Lymphocytes # (Manual) 0.3 L Basophils # (Manual) PT INR APTT Heparin Anti-Xa Level POC ABG pH POC ABG pCO2 POC ABG pO2 Sodium Potassium Chloride Carbon Dioxide BUN Creatinine Glucose POC Glucose Lactic Acid Calcium Phosphorus Magnesium Iron TIBC Ferritin 1126.0 H AST ALT Total Creatine Kinase Total Protein Albumin Vitamin B12 Folate 6.71 L TSH Free T4 Urine WBC (Auto) Urine Creatinine Urine Chloride Urine Total Protein CSF VDRL Lymph Enumerat CD4/CD8 Absolute CD3 Count % CD4 Cells Absolute CD4 Count % CD8 Cells Absolute CD19 Count T.pallidum Ab (FTA-ABS) HIV-1 RNA PCR copies/ml HIV-1 RNA (PCR) log Miscellaneous Test 10/07/18 10/07/18 10/09/18 04:20 15:38 04:20 WBC 1.1 L* RBC 3.35 L Hgb 9.9 L Hct 30.1 L RDW 21.4 H Plt Count Seg Neuts % (Manual) 19.0 L Lymphocytes % (Manual) 42.0 H Monocytes % (Manual) 18.0 H Eosinophils % (Manual) 15.0 H Basophils % (Manual) 2.0 H Nucleated RBC % Seg Neutrophils # Man 0.2 L Abs Lymphs (Manual) Lymphocytes # (Manual) 0.5 L Basophils # (Manual) PT INR APTT Heparin Anti-Xa Level POC ABG pH 7.516 H POC ABG pCO2 32.1 L POC ABG pO2 Sodium Potassium Chloride Carbon Dioxide BUN Creatinine 0.7 L Glucose POC Glucose Lactic Acid Calcium 7.9 L Phosphorus Magnesium Iron TIBC Ferritin AST ALT Total Creatine Kinase Total Protein 5.5 L Albumin 2.2 L Vitamin B12 Folate TSH Free T4 Urine WBC (Auto) Urine Creatinine Urine Chloride Urine Total Protein CSF VDRL Lymph Enumerat CD4/CD8 Absolute CD3 Count % CD4 Cells Absolute CD4 Count % CD8 Cells Absolute CD19 Count T.pallidum Ab (FTA-ABS) HIV-1 RNA PCR copies/ml HIV-1 RNA (PCR) log Miscellaneous Test 10/09/18 10/09/18 10/09/18 04:20 11:48 17:31 WBC RBC Hgb Hct RDW Plt Count Seg Neuts % (Manual) Lymphocytes % (Manual) Monocytes % (Manual) Eosinophils % (Manual) Basophils % (Manual) Nucleated RBC % Seg Neutrophils # Man Abs Lymphs (Manual) Lymphocytes # (Manual) Basophils # (Manual) PT INR APTT Heparin Anti-Xa Level POC ABG pH POC ABG pCO2 POC ABG pO2 Sodium Potassium 5.4 H Chloride Carbon Dioxide 21 L BUN 55 H 72 H Creatinine 3.8 H D 4.5 H Glucose 118 H POC Glucose 124 H Lactic Acid Calcium 8.3 L 8.2 L Phosphorus Magnesium Iron TIBC Ferritin AST ALT Total Creatine Kinase Total Protein Albumin Vitamin B12 Folate TSH Free T4 Urine WBC (Auto) Urine Creatinine Urine Chloride Urine Total Protein CSF VDRL Lymph Enumerat CD4/CD8 Absolute CD3 Count % CD4 Cells Absolute CD4 Count % CD8 Cells Absolute CD19 Count T.pallidum Ab (FTA-ABS) HIV-1 RNA PCR copies/ml HIV-1 RNA (PCR) log Miscellaneous Test 10/10/18 10/10/18 10/10/18 08:09 08:35 10:54 WBC 1.1 L* RBC 3.16 L Hgb 9.6 L Hct 28.8 L RDW 21.2 H Plt Count Seg Neuts % (Manual) 27.0 L Lymphocytes % (Manual) Monocytes % (Manual) 9.0 H Eosinophils % (Manual) 18.0 H Basophils % (Manual) 12.0 H Nucleated RBC % Seg Neutrophils # Man 0.3 L Abs Lymphs (Manual) Lymphocytes # (Manual) 0.3 L Basophils # (Manual) PT 16.0 H INR 1.20 H APTT Heparin Anti-Xa Level POC ABG pH POC ABG pCO2 POC ABG pO2 Sodium Potassium 5.5 H Chloride Carbon Dioxide 20 L BUN 83 H Creatinine 5.5 H Glucose 119 H POC Glucose Lactic Acid Calcium Phosphorus Magnesium Iron TIBC Ferritin AST ALT Total Creatine Kinase Total Protein Albumin Vitamin B12 Folate TSH Free T4 Urine WBC (Auto) Urine Creatinine Urine Chloride Urine Total Protein CSF VDRL Lymph Enumerat CD4/CD8 Absolute CD3 Count % CD4 Cells Absolute CD4 Count % CD8 Cells Absolute CD19 Count T.pallidum Ab (FTA-ABS) HIV-1 RNA PCR copies/ml HIV-1 RNA (PCR) log Miscellaneous Test 10/10/18 10/10/18 10/11/18 Unknown Unknown 05:20 WBC 1.2 L* RBC 2.89 L Hgb 8.7 L Hct 26.0 L RDW 20.1 H Plt Count Seg Neuts % (Manual) Lymphocytes % (Manual) 8.0 L Monocytes % (Manual) 12.0 H Eosinophils % (Manual) 24.0 H Basophils % (Manual) 4.0 H Nucleated RBC % Seg Neutrophils # Man 0.6 L Abs Lymphs (Manual) Lymphocytes # (Manual) 0.1 L Basophils # (Manual) PT INR APTT Heparin Anti-Xa Level POC ABG pH POC ABG pCO2 POC ABG pO2 Sodium Potassium Chloride Carbon Dioxide BUN Creatinine Glucose POC Glucose Lactic Acid Calcium Phosphorus Magnesium Iron TIBC Ferritin AST ALT Total Creatine Kinase Total Protein Albumin Vitamin B12 Folate TSH Free T4 Urine WBC (Auto) Urine Creatinine Urine Chloride Urine Total Protein CSF VDRL Reactive 1:2 H Lymph Enumerat CD4/CD8 Absolute CD3 Count % CD4 Cells Absolute CD4 Count % CD8 Cells Absolute CD19 Count T.pallidum Ab (FTA-ABS) HIV-1 RNA PCR copies/ml HIV-1 RNA (PCR) log Miscellaneous Test Flexitest 1 H 10/11/18 10/11/18 10/11/18 05:20 05:40 05:40 WBC RBC Hgb Hct RDW Plt Count Seg Neuts % (Manual) Lymphocytes % (Manual) Monocytes % (Manual) Eosinophils % (Manual) Basophils % (Manual) Nucleated RBC % Seg Neutrophils # Man Abs Lymphs (Manual) Lymphocytes # (Manual) Basophils # (Manual) PT INR APTT Heparin Anti-Xa Level POC ABG pH POC ABG pCO2 POC ABG pO2 Sodium Potassium Chloride Carbon Dioxide 20 L BUN 102 H Creatinine 6.7 H Glucose POC Glucose Lactic Acid Calcium 8.3 L Phosphorus Magnesium Iron TIBC Ferritin AST ALT Total Creatine Kinase Total Protein Albumin Vitamin B12 Folate TSH Free T4 Urine WBC (Auto) 8.0 H Urine Creatinine 57.5 H Urine Chloride 35.1 L Urine Total Protein 44 H CSF VDRL Lymph Enumerat CD4/CD8 Absolute CD3 Count % CD4 Cells Absolute CD4 Count % CD8 Cells Absolute CD19 Count T.pallidum Ab (FTA-ABS) HIV-1 RNA PCR copies/ml HIV-1 RNA (PCR) log Miscellaneous Test 10/11/18 10/12/18 10/12/18 16:41 03:30 03:30 WBC 0.9 L* RBC 2.78 L Hgb 8.3 L Hct 25.1 L RDW 19.9 H Plt Count Seg Neuts % (Manual) Lymphocytes % (Manual) Monocytes % (Manual) Eosinophils % (Manual) 20.0 H Basophils % (Manual) Nucleated RBC % Seg Neutrophils # Man 0.5 L Abs Lymphs (Manual) Lymphocytes # (Manual) 0.3 L Basophils # (Manual) PT INR APTT Heparin Anti-Xa Level POC ABG pH 7.318 L POC ABG pCO2 POC ABG pO2 Sodium Potassium Chloride Carbon Dioxide 18 L BUN 111 H Creatinine 7.3 H Glucose POC Glucose Lactic Acid Calcium 7.9 L Phosphorus Magnesium Iron TIBC Ferritin AST ALT Total Creatine Kinase Total Protein Albumin Vitamin B12 Folate TSH Free T4 Urine WBC (Auto) Urine Creatinine Urine Chloride Urine Total Protein CSF VDRL Lymph Enumerat CD4/CD8 Absolute CD3 Count % CD4 Cells Absolute CD4 Count % CD8 Cells Absolute CD19 Count T.pallidum Ab (FTA-ABS) HIV-1 RNA PCR copies/ml HIV-1 RNA (PCR) log Miscellaneous Test 10/12/18 10/13/18 10/13/18 13:30 04:00 04:05 WBC 1.0 L* RBC 2.68 L Hgb 8.1 L Hct 24.3 L RDW 19.7 H Plt Count Seg Neuts % (Manual) 36.7 L Lymphocytes % (Manual) Monocytes % (Manual) Eosinophils % (Manual) 16.7 H Basophils % (Manual) 16.7 H Nucleated RBC % Seg Neutrophils # Man 0.4 L Abs Lymphs (Manual) Lymphocytes # (Manual) 0.2 L Basophils # (Manual) 0.2 H PT INR APTT Heparin Anti-Xa Level POC ABG pH 7.336 L POC ABG pCO2 31.5 L POC ABG pO2 122 H Sodium Potassium Chloride Carbon Dioxide 17 L BUN 118 H Creatinine 7.8 H Glucose 102 H POC Glucose Lactic Acid Calcium 7.8 L Phosphorus Magnesium Iron TIBC Ferritin AST ALT Total Creatine Kinase Total Protein Albumin Vitamin B12 Folate TSH Free T4 Urine WBC (Auto) Urine Creatinine Urine Chloride Urine Total Protein CSF VDRL Lymph Enumerat CD4/CD8 Absolute CD3 Count % CD4 Cells Absolute CD4 Count % CD8 Cells Absolute CD19 Count T.pallidum Ab (FTA-ABS) HIV-1 RNA PCR copies/ml HIV-1 RNA (PCR) log Miscellaneous Test 10/13/18 10/14/18 10/14/18 18:44 00:01 05:20 WBC RBC Hgb Hct RDW Plt Count Seg Neuts % (Manual) Lymphocytes % (Manual) Monocytes % (Manual) Eosinophils % (Manual) Basophils % (Manual) Nucleated RBC % Seg Neutrophils # Man Abs Lymphs (Manual) Lymphocytes # (Manual) Basophils # (Manual) PT INR APTT Heparin Anti-Xa Level POC ABG pH POC ABG pCO2 POC ABG pO2 Sodium Potassium Chloride Carbon Dioxide BUN Creatinine Glucose POC Glucose 141 H 134 H 171 H Lactic Acid Calcium Phosphorus Magnesium Iron TIBC Ferritin AST ALT Total Creatine Kinase Total Protein Albumin Vitamin B12 Folate TSH Free T4 Urine WBC (Auto) Urine Creatinine Urine Chloride Urine Total Protein CSF VDRL Lymph Enumerat CD4/CD8 Absolute CD3 Count % CD4 Cells Absolute CD4 Count % CD8 Cells Absolute CD19 Count T.pallidum Ab (FTA-ABS) HIV-1 RNA PCR copies/ml HIV-1 RNA (PCR) log Miscellaneous Test 10/14/18 10/14/18 10/14/18 09:39 09:40 11:37 WBC RBC Hgb Hct RDW Plt Count Seg Neuts % (Manual) Lymphocytes % (Manual) Monocytes % (Manual) Eosinophils % (Manual) Basophils % (Manual) Nucleated RBC % Seg Neutrophils # Man Abs Lymphs (Manual) Lymphocytes # (Manual) Basophils # (Manual) PT INR APTT Heparin Anti-Xa Level POC ABG pH POC ABG pCO2 POC ABG pO2 Sodium 147 H Potassium 3.4 L Chloride 108.1 H Carbon Dioxide 16 L BUN 124 H Creatinine 6.7 H Glucose 144 H POC Glucose 164 H Lactic Acid Calcium 7.8 L Phosphorus 8.50 H Magnesium Iron TIBC Ferritin AST ALT Total Creatine Kinase Total Protein Albumin Vitamin B12 Folate TSH Free T4 Urine WBC (Auto) Urine Creatinine Urine Chloride Urine Total Protein CSF VDRL Lymph Enumerat CD4/CD8 Absolute CD3 Count % CD4 Cells Absolute CD4 Count % CD8 Cells Absolute CD19 Count T.pallidum Ab (FTA-ABS) HIV-1 RNA PCR copies/ml HIV-1 RNA (PCR) log Miscellaneous Test 10/14/18 10/14/18 10/15/18 Unknown Unknown 00:05 WBC 0.5 L* RBC 2.80 L Hgb 8.2 L Hct 25.2 L RDW 19.7 H Plt Count Seg Neuts % (Manual) Lymphocytes % (Manual) 10.0 L Monocytes % (Manual) Eosinophils % (Manual) 10.0 H Basophils % (Manual) Nucleated RBC % Seg Neutrophils # Man 0.4 L Abs Lymphs (Manual) Lymphocytes # (Manual) 0.1 L Basophils # (Manual) PT INR APTT Heparin Anti-Xa Level POC ABG pH POC ABG pCO2 POC ABG pO2 Sodium Potassium Chloride Carbon Dioxide 13 L BUN 126 H Creatinine 7.7 H Glucose 153 H POC Glucose 190 H Lactic Acid Calcium 7.8 L Phosphorus Magnesium Iron TIBC Ferritin AST ALT Total Creatine Kinase Total Protein Albumin Vitamin B12 Folate TSH Free T4 Urine WBC (Auto) Urine Creatinine Urine Chloride Urine Total Protein CSF VDRL Lymph Enumerat CD4/CD8 Absolute CD3 Count % CD4 Cells Absolute CD4 Count % CD8 Cells Absolute CD19 Count T.pallidum Ab (FTA-ABS) HIV-1 RNA PCR copies/ml HIV-1 RNA (PCR) log Miscellaneous Test 10/15/18 10/15/18 10/15/18 04:15 04:15 05:03 WBC 0.8 L* RBC 2.73 L Hgb 8.2 L Hct 24.4 L RDW 18.8 H Plt Count Seg Neuts % (Manual) Lymphocytes % (Manual) Monocytes % (Manual) Eosinophils % (Manual) Basophils % (Manual) Nucleated RBC % Seg Neutrophils # Man Abs Lymphs (Manual) Lymphocytes # (Manual) Basophils # (Manual) PT INR APTT Heparin Anti-Xa Level POC ABG pH POC ABG pCO2 POC ABG pO2 Sodium 148 H Potassium 2.9 L* Chloride 108.5 H Carbon Dioxide 17 L BUN 127 H Creatinine 6.1 H Glucose 154 H POC Glucose 170 H Lactic Acid Calcium 7.7 L Phosphorus Magnesium Iron TIBC Ferritin AST ALT Total Creatine Kinase Total Protein 6.0 L Albumin 2.3 L Vitamin B12 Folate TSH Free T4 Urine WBC (Auto) Urine Creatinine Urine Chloride Urine Total Protein CSF VDRL Lymph Enumerat CD4/CD8 Absolute CD3 Count % CD4 Cells Absolute CD4 Count % CD8 Cells Absolute CD19 Count T.pallidum Ab (FTA-ABS) HIV-1 RNA PCR copies/ml HIV-1 RNA (PCR) log Miscellaneous Test Allied health notes reviewed: nursing
--- NOTE | 2018-10-15 09:51 | Hem/Onc Progress Note ---
Assessment and Plan 1. Leukopenia. ANC is 0.5. Neutropenic precaution is practical. 2. Anemia. We will investigate. 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 HAART has been started. At this time, there is no fever. 3. Human immunodeficiency virus, on HAART. 4. 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 5. Intubated. 6. On antibiotics for pneumonia. 7. History of ____ that is improved. 8. Looks at you, but does not communicate. 9. History of oral candidiasis. 10. Mention of giardiasis. 11. Encephalopathy. 12. RVR with atrial fibrillation. I will follow the patient during inpatient stay. At this time, his cytopenia is likely secondary to the HIV or the CMV. I will discuss with ID team to see if G-CSF support is an option. 10/07 - d/w ID - reg GCSF ANC improving 0.7 today - will watch low folate - replace 10/09 - moving rt arm - GCSF trial for 2 days 10/10 - [employer] worse - d/w RN reg same - I had spoken to hospitalist - dr reyna - yesterday about this 10/11 - s/p GCSF - not much change in WBC or overall performance - as per RN - plan for trach and PEG [employer] high - nephrology 10/12 - trach - peg not done - as family deciding the GCSF - did not change the WBC 10/13 - wbc 1 - opens eye - non communicative 10/14 - pt moves rt arm - eyes open still on vent - as per info - family is thinking about PEG - trach - they have not consented granix trial for low wbc 10/15 - gcsf trial - poor prognosis due to performance status - Patient Problems (1) Neutropenia Current Visit: Yes Status: Acute Subjective Date of service: 10/15/18 Principal diagnosis: low wbc Interval history: looks at you - not responsive Objective - Exam Narrative Exam: non verbal - Constitutional Vitals: Last Vital Signs Temp 95.4 F L 10/15/18 08:00 Pulse 70 10/15/18 08:05 Resp 16 10/15/18 08:05 BP 131/69 10/15/18 08:05 Pulse Ox 100 10/15/18 08:05 General appearance: no acute distress Performance status: 4-completely disabled - EENT Lymph node exam: negative cervical - Respiratory Respiratory effort: Positive: normal, other (vent) Respiratory: bilateral: diminished - Cardiovascular Heart Sounds: Present: S1 & S2 Extremity abnormal: edema - Gastrointestinal General gastrointestinal: Present: soft, non-tender Rectal Exam: deferred - Genitourinary Male genitourinary: Present: deferred - Integumentary Integumentary: warm - Musculoskeletal Musculoskeletal: other (moves rt arm) - Neurologic Neurologic: other (not communicative) - Labs Lab Results: Laboratory Results - last 24 hr 10/12/18 10/12/18 10/14/18 09:46 09:46 09:39 WBC RBC Hgb Hct MCV MCH MCHC RDW Plt Count Sodium 147 H Potassium 3.4 L Chloride 108.1 H Carbon Dioxide 16 L Anion Gap 26 BUN 124 H Creatinine 6.7 H Estimated GFR 12 BUN/Creatinine Ratio 19 Glucose 144 H POC Glucose Calcium 7.8 L Phosphorus Magnesium Total Bilirubin AST ALT Alkaline Phosphatase Total Protein Albumin Albumin/Globulin Ratio Complement C3 184 Complement C4 45 10/14/18 10/14/18 10/15/18 09:40 11:37 00:05 WBC RBC Hgb Hct MCV MCH MCHC RDW Plt Count Sodium Potassium Chloride Carbon Dioxide Anion Gap BUN Creatinine Estimated GFR BUN/Creatinine Ratio Glucose POC Glucose 164 H 190 H Calcium Phosphorus 8.50 H Magnesium 2.10 Total Bilirubin AST ALT Alkaline Phosphatase Total Protein Albumin Albumin/Globulin Ratio Complement C3 Complement C4 10/15/18 10/15/18 10/15/18 04:15 04:15 05:03 WBC 0.8 L* RBC 2.73 L Hgb 8.2 L Hct 24.4 L MCV 90 MCH 30 MCHC 34 RDW 18.8 H Plt Count 237 Sodium 148 H Potassium 2.9 L* Chloride 108.5 H Carbon Dioxide 17 L Anion Gap 25 BUN 127 H Creatinine 6.1 H Estimated GFR 13 BUN/Creatinine Ratio 21 Glucose 154 H POC Glucose 170 H Calcium 7.7 L Phosphorus Magnesium Total Bilirubin < 0.20 AST 36 ALT 32 Alkaline Phosphatase 66 Total Protein 6.0 L Albumin 2.3 L Albumin/Globulin Ratio 0.6 Complement C3 Complement C4 Medications & Allergies - Medications Allergies/Adverse Reactions: Allergies No Known Allergies Allergy (Unverified 09/11/18 17:50) Home Medications: Home Medications Medication Instructions Recorded Confirmed Last Taken Type No Known Home Medications [No 10/02/18 10/02/18 Unknown History Reported Home Medications] Active Medications: Generic Name Dose Route Start Last Admin Trade Name Freq PRN Reason Stop Dose Admin Acetaminophen 650 mg 09/11/18 19:30 10/09/18 16:32 Tylenol PO 650 mg Q4H PRN Administration Pain MILD(1-3)/Fever >100.5/RIVERA Acetaminophen 650 mg 09/21/18 07:39 10/07/18 21:15 Tylenol DE 650 mg Q4H PRN Administration Fever >101 Albuterol 2.5 mg 09/11/18 19:30 09/16/18 06:09 Proventil IH 2.5 mg Q4HRT PRN Administration Shortness Of Breath Albuterol 2.5 mg 09/20/18 20:00 10/15/18 07:23 Proventil IH 2.5 mg Q6HRT GIA Administration Amiodarone HCl 200 mg 09/27/18 15:00 10/14/18 22:39 Cordarone PO 200 mg BID GIA Administration Lipase/Protease/Amylase 1 each 09/30/18 12:01 Pancreaze 10,500 Unit FEEDTUBE PRN PRN For Clogged Feeding Tube Atovaquone 750 mg 09/21/18 10:00 10/14/18 22:40 Mepron PO 750 mg BID GIA Administration Emtricitabine 200 mg 10/13/18 10:00 10/13/18 10:37 Emtriva PO 200 mg Q96H GIA Administration Famotidine 20 mg 10/10/18 10:00 10/14/18 10:04 Pepcid PO 20 mg DAILY GIA Administration Fluconazole 200 mg 10/05/18 12:00 10/14/18 10:13 Diflucan PO 200 mg QDAY GIA Administration Folic Acid 1 mg 10/07/18 10:00 10/14/18 10:04 Folvite PO 1 mg QDAY GIA Administration Glycopyrrolate 2 mg 10/07/18 18:00 10/15/18 06:28 Robinul PO 2 mg Q6HR GIA Administration Heparin Sodium (Porcine) 5,000 unit 10/05/18 14:00 10/15/18 06:29 Heparin SUB-Q 5,000 unit Q8HR GIA Administration Hydrophilic Ointment 1 applic 09/21/18 01:46 09/22/18 03:46 Vaseline Lip Therapy TP 1 applic Q2HR PRN Administration Dry Lips Cefepime HCl 2 gm in 100 mls @ 200 mls/hr 10/10/18 11:30 10/14/18 10:05 Maxipime/Ns 2 Gm/100 Ml IV 200 mls/hr Q24HR GIA Administration Protocol Ganciclovir Sodium 150 mg/ 250 mls @ 100 mls/hr 10/12/18 10:00 10/14/18 12:07 Sodium Chloride IV 100 mls/hr MoWeFr GIA Administration Methylprednisolone Sodium 100 mls @ 200 mls/hr 10/14/18 10:00 10/14/18 11:34 Succinate 500 mg/ Sodium IV 10/15/18 10:29 200 mls/hr Chloride Q24HR GIA Administration Sodium Bicarbonate 150 meq/ 1,150 mls @ 75 mls/hr 10/14/18 08:30 10/14/18 11:43 Dextrose IV 75 mls/hr DIRECT GIA Administration Levetiracetam 750 mg 10/12/18 22:00 10/14/18 22:39 Keppra PO 750 mg BID GIA Administration Levothyroxine Sodium 25 mcg 09/19/18 06:00 10/15/18 06:28 Synthroid PO 25 mcg DAILY@0600 GIA Administration Metoprolol Tartrate 12.5 mg 10/10/18 13:00 10/14/18 22:42 Lopressor PO 12.5 mg BID GIA Administration Multi-Ingred Cream/Lotion/Oil/Oint 1 applic 09/21/18 01:46 Artificial Tears Ophth Oint OU Q4HR PRN Dry Eye(s) Ondansetron HCl 4 mg 09/11/18 19:30 Zofran IV Q8H PRN Nausea And Vomiting Scopolamine 1 each 09/18/18 18:00 10/12/18 17:16 Transderm-Scop TD 1 each Q3D GIA Administration Simple Syrup 15 ml 09/30/18 12:01 10/07/18 06:18 Simple Syrup FEEDTUBE 15 ml PRN PRN Administration Hypoglycemia Simple Syrup 30 ml 09/30/18 12:01 Simple Syrup FEEDTUBE PRN PRN Hypoglycemia Sodium Bicarbonate 325 mg 09/30/18 12:01 Sodium Bicarbonate FEEDTUBE PRN PRN For Clogged Feeding Tube Sodium Chloride 10 ml 09/11/18 22:00 10/14/18 23:47 Sodium Chloride Flush Syringe 10 Ml IV Not Given BID GIA Sodium Chloride 10 ml 09/11/18 19:30 Sodium Chloride Flush Syringe 10 Ml IV PRN PRN LINE FLUSH Tbo-Filgrastim 480 mcg 10/14/18 10:00 10/14/18 11:34 Granix SUB-Q 10/16/18 23:59 480 mcg DAILY GIA Administration Tenofovir Disoproxil Fumarate 300 mg 10/13/18 10:00 10/13/18 10:37 Viread PO 300 mg Q96H GIA Administration
[2018-10-15] MEDS ORDERED: POTASSIUM CHLORIDE FEEDTUBE ONE (10:45)
[2018-10-15] MEDS ORDERED: SODIUM BICARBONATE FEEDTUBE PRN (10:45)
[2018-10-15] MEDS ORDERED: SIMPLE SYRUP FEEDTUBE PRN ×2 (10:45)
[2018-10-15] MEDS: DIFLUCAN PO SCH (11:23)
[2018-10-15] MEDS: TIVICAY PO SCH (11:24)
[2018-10-15] MEDS: KEPPRA PO SCH ×2 (11:24→22:06)
[2018-10-15] MEDS: MEPRON PO SCH ×2 (11:24→22:11)
[2018-10-15] MEDS: FOLVITE PO SCH (11:25)
[2018-10-15] MEDS: PEPCID PO SCH (11:26)
[2018-10-15] MEDS: LOPRESSOR PO SCH ×2 (11:26→22:09)
[2018-10-15] MEDS: CORDARONE PO SCH ×2 (11:26→22:10)
[2018-10-15] MEDS: MAXIPIME/NS 2 GM/100 ML 2 GM/100 ML BAG IV SCH (11:27)
[2018-10-15] MEDS: SOLU-Medrol 500 MG in NACL 0.9% 100 ML IV SCH (11:27)
[2018-10-15] MEDS: SODIUM CHLORIDE FLUSH SYRINGE 10 ML IV SCH ×2 (11:27→23:46)
[2018-10-15] MEDS: KCL 20MEQ/100ML 20 MEQ/100 ML BAG IV SCH ×2 (11:46→12:47)
--- NOTE | 2018-10-15 12:32 | Progress Note ---
Assessment and Plan - Patient Problems (1) Acute kidney failure with tubular necrosis Current Visit: Yes Status: Acute Plan to address problem: Acute tubular necrosis secondary to sepsis. Kidney function worsening on ganciclovir. Need to initiate dialysis, discussed with pt's sister regarding risks and benefits of HD, who understand and agrees to HD. vascular surgery consulted for vascath once catheter placed will initiate HD. (2) Sepsis Current Visit: Yes Status: Acute Plan to address problem: Continue AB per ID. 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 Continue treatment for both per the infectious disease. 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 Improved. Follow-up liver function test Subjective Date of service: 10/15/18 Principal diagnosis: low wbc Interval history: Pt remains intubated, but opening eyes spontaneously, not following commands Objective - Vital Signs Vital signs: Vital Signs - 12hr 10/15/18 10/15/18 10/15/18 01:00 02:00 03:00 Temperature Pulse Rate 77 73 79 Pulse Rate [ From Monitor] Pulse Rate [ Throughout] Respiratory 15 12 17 Rate Respiratory Rate [ Throughout] Blood Pressure 121/78 121/78 120/74 O2 Sat by Pulse 99 100 100 Oximetry 10/15/18 10/15/18 10/15/18 03:06 03:08 03:20 Temperature 97.3 F L Pulse Rate 79 Pulse Rate [ From Monitor] Pulse Rate [ 77 76 Throughout] Respiratory Rate Respiratory 15 15 Rate [ Throughout] Blood Pressure 120/74 O2 Sat by Pulse 100 Oximetry 10/15/18 10/15/18 10/15/18 04:00 05:00 06:00 Temperature Pulse Rate 76 71 70 Pulse Rate [ 70 From Monitor] Pulse Rate [ Throughout] Respiratory 15 11 L 14 Rate Respiratory Rate [ Throughout] Blood Pressure 120/71 130/67 131/69 O2 Sat by Pulse 100 100 100 Oximetry 10/15/18 10/15/18 10/15/18 07:00 07:23 08:00 Temperature 95.4 F L Pulse Rate 68 80 Pulse Rate [ From Monitor] Pulse Rate [ 78 Throughout] Respiratory 11 L 14 Rate Respiratory 18 Rate [ Throughout] Blood Pressure 132/72 139/72 O2 Sat by Pulse 100 100 Oximetry 10/15/18 10/15/18 10/15/18 08:05 09:00 10:00 Temperature Pulse Rate 70 73 79 Pulse Rate [ From Monitor] Pulse Rate [ Throughout] Respiratory 16 11 L 16 Rate Respiratory Rate [ Throughout] Blood Pressure 131/69 132/69 127/70 O2 Sat by Pulse 100 100 100 Oximetry 10/15/18 11:26 Temperature Pulse Rate 84 Pulse Rate [ From Monitor] Pulse Rate [ Throughout] Respiratory Rate Respiratory Rate [ Throughout] Blood Pressure 124/65 O2 Sat by Pulse Oximetry - General Appearance General appearance: appears stated age, intubated, fatigue EENT: ATNC, PERRL, mucous membranes moist Neck: no JVD Respiratory: Present: Decreased Breath Sounds Cardiology: regular, S1S2 Gastrointestinal: normoactive bowel sounds Integumentary: rash, other (2-3+ edema b/l LE ) Neurologic: other (intubated ) - Lab 10/15/18 04:15 10/15/18 04:15 Most recent lab results Calcium 7.7 mg/dL (8.4-10.2) L 10/15/18 04:15 Phosphorus 8.50 mg/dL (2.5-4.5) H 10/14/18 09:40 Magnesium 2.10 mg/dL (1.7-2.3) 10/14/18 09:40 Urine Creatinine 57.5 mg/dL (0.1-20.0) H 10/11/18 05:40 Urine Sodium 70 mmol/L 10/11/18 05:40 Urine Total Protein 44 mg/dL (5-11.8) H 10/11/18 05:40 Medications & Allergies - Medications Allergies/Adverse Reactions: Allergies No Known Allergies Allergy (Unverified 09/11/18 17:50) Home Medications: Home Medications Medication Instructions Recorded Confirmed Last Taken Type No Known Home Medications [No 10/02/18 10/02/18 Unknown History Reported Home Medications] Active Medications: Generic Name Dose Route Start Last Admin Trade Name Freq PRN Reason Stop Dose Admin Acetaminophen 650 mg 09/11/18 19:30 10/09/18 16:32 Tylenol PO 650 mg Q4H PRN Administration Pain MILD(1-3)/Fever >100.5/RIVERA Acetaminophen 650 mg 09/21/18 07:39 10/07/18 21:15 Tylenol DC 650 mg Q4H PRN Administration Fever >101 Albuterol 2.5 mg 09/11/18 19:30 09/16/18 06:09 Proventil IH 2.5 mg Q4HRT PRN Administration Shortness Of Breath Albuterol 2.5 mg 09/20/18 20:00 10/15/18 07:23 Proventil IH 2.5 mg Q6HRT GIA Administration Amiodarone HCl 200 mg 09/27/18 15:00 10/15/18 11:26 Cordarone PO 200 mg BID GIA Administration Lipase/Protease/Amylase 1 each 09/30/18 12:01 Pancreaze 10,500 Unit FEEDTUBE PRN PRN For Clogged Feeding Tube Atovaquone 750 mg 09/21/18 10:00 10/15/18 11:24 Mepron PO 750 mg BID GIA Administration Emtricitabine 200 mg 10/13/18 10:00 10/13/18 10:37 Emtriva PO 200 mg Q96H GIA Administration Famotidine 20 mg 10/10/18 10:00 10/15/18 11:26 Pepcid PO 20 mg DAILY GIA Administration Fluconazole 200 mg 10/05/18 12:00 10/15/18 11:23 Diflucan PO 200 mg QDAY GIA Administration Folic Acid 1 mg 10/07/18 10:00 10/15/18 11:25 Folvite PO 1 mg QDAY GIA Administration Glycopyrrolate 2 mg 10/07/18 18:00 10/15/18 11:24 Robinul PO 2 mg Q6HR GIA Administration Heparin Sodium (Porcine) 5,000 unit 10/05/18 14:00 10/15/18 06:29 Heparin SUB-Q 5,000 unit Q8HR GIA Administration Hydrophilic Ointment 1 applic 09/21/18 01:46 09/22/18 03:46 Vaseline Lip Therapy TP 1 applic Q2HR PRN Administration Dry Lips Cefepime HCl 2 gm in 100 mls @ 200 mls/hr 10/10/18 11:30 10/15/18 11:27 Maxipime/Ns 2 Gm/100 Ml IV 200 mls/hr Q24HR GIA Administration Protocol Ganciclovir Sodium 150 mg/ 250 mls @ 100 mls/hr 10/12/18 10:00 10/14/18 12:07 Sodium Chloride IV 100 mls/hr MoWeFr GIA Administration Sodium Bicarbonate 150 meq/ 1,150 mls @ 75 mls/hr 10/14/18 08:30 10/14/18 11:43 Dextrose IV 75 mls/hr DIRECT GIA Administration Potassium Chloride 20 meq in 100 mls @ 100 mls/hr 10/15/18 11:00 Kcl 20meq/100ml IV 10/15/18 12:59 Q1H GIA Levetiracetam 750 mg 10/12/18 22:00 10/15/18 11:24 Keppra PO 750 mg BID GIA Administration Levothyroxine Sodium 25 mcg 09/19/18 06:00 10/15/18 06:28 Synthroid PO 25 mcg DAILY@0600 GIA Administration Metoprolol Tartrate 12.5 mg 10/10/18 13:00 10/15/18 11:26 Lopressor PO 12.5 mg BID GIA Administration Multi-Ingred Cream/Lotion/Oil/Oint 1 applic 09/21/18 01:46 Artificial Tears Ophth Oint OU Q4HR PRN Dry Eye(s) Ondansetron HCl 4 mg 09/11/18 19:30 Zofran IV Q8H PRN Nausea And Vomiting Scopolamine 1 each 09/18/18 18:00 10/12/18 17:16 Transderm-Scop TD 1 each Q3D GIA Administration Simple Syrup 15 ml 09/30/18 12:01 10/07/18 06:18 Simple Syrup FEEDTUBE 15 ml PRN PRN Administration Hypoglycemia Simple Syrup 15 ml 10/15/18 10:45 Simple Syrup FEEDTUBE PRN PRN Hypoglycemia Simple Syrup 30 ml 10/15/18 10:45 Simple Syrup FEEDTUBE PRN PRN Hypoglycemia Sodium Bicarbonate 325 mg 10/15/18 10:45 Sodium Bicarbonate FEEDTUBE PRN PRN For Clogged Feeding Tube Sodium Chloride 10 ml 09/11/18 22:00 10/15/18 11:27 Sodium Chloride Flush Syringe 10 Ml IV 10 ml BID GIA Administration Sodium Chloride 10 ml 09/11/18 19:30 Sodium Chloride Flush Syringe 10 Ml IV PRN PRN LINE FLUSH Tbo-Filgrastim 480 mcg 10/14/18 10:00 10/14/18 11:34 Granix SUB-Q 10/16/18 23:59 480 mcg DAILY GIA Administration Tenofovir Disoproxil Fumarate 300 mg 10/13/18 10:00 10/13/18 10:37 Viread PO 300 mg Q96H GIA Administration
[2018-10-15] MEDS ORDERED: NACL 0.9% 100 ML IV PRN (12:33)
[2018-10-15] MEDS: GRANIX SUB-Q SCH (12:46)
[2018-10-15] MEDS ORDERED: KCL 20MEQ/100ML 20 MEQ/100 ML BAG IV ONE (14:00)
--- NOTE | 2018-10-15 15:08 | Progress Note ---
Assessment and Plan Assessment and plan: The high probability of a clinically significant, sudden or life threatening deterioration of the [] system(s) required my full and direct attention, intervention and personal management. The aggregate critical care time was [] minutes. This time is in addition to time spent performing reported procedures but includes the following: [x] Data Review and interpretation [x] Patient assessment and monitoring of vital signs [x] Documentation [x] Medication orders and management - Patient Problems (1) Acute kidney failure with tubular necrosis Current Visit: Yes Status: Acute Plan to address problem: Acute renal failure has gotten worse will most likely require hemodialysis today. Also had hypokalemia has been replaced. (2) Acute respiratory failure with hypoxia Current Visit: Yes Status: Acute Plan to address problem: Acute hypoxic respiratory failure remains intubated. Unable to wean today. Underlying lung exam significant rhonchi decreased breath sounds. (3) Diarrhea Current Visit: Yes Status: Acute Plan to address problem: Diarrhea has resolved likely secondary to Giardia (4) Encephalopathy Current Visit: Yes Status: Acute Plan to address problem: Patient remains encephalopathic most likely neurosyphilis versus anoxia. Patient on day 2 penicillin. (5) Hypokalemia Current Visit: Yes Status: Acute Plan to address problem: Focal anemia to be corrected today. (6) Neurosyphilis Current Visit: Yes Status: Acute Plan to address problem: Treated penicillin. ID following. (7) Thrombocytopenia Current Visit: Yes Status: Acute Plan to address problem: Teens to improve. Locally. (8) AIDS Current Visit: Yes Status: Suspected Plan to address problem: Patient no one sick AIDS. Started HARRT ear pain. (9) Atrial fibrillation and flutter Current Visit: Yes Status: Resolved Plan to address problem: Patient rate very well controlled continue amiodarone and metoprolol beta kianna. History Interval history: Patient intubated appeared to be alert and tracking with his eyes during exam. Patient intubated unable to make needs known. Unaware of his baseline. Appears still encephalopathic. Hospitalist Physical - Constitutional Vitals: Temp Pulse Resp BP Pulse Ox 95.4 F L 90 22 124/65 100 10/15/18 08:00 10/15/18 14:26 10/15/18 14:26 10/15/18 11:26 10/15/18 10:00 General appearance: Present: mild distress, other (orally intubated, minimal response--right side spontaneous movement) - EENT Eyes: Present: PERRL, EOM intact ENT: poor dentition, thrush, no oropharyngeal erythema, no ulcerations - Neck Neck: Present: supple, normal ROM. Absent: enlarged thyroid, masses or JVD, cervical LAD - Respiratory Respiratory: bilateral: diminished, rhonchi - Cardiovascular Rhythm: other (tachycardic) - Extremities Extremities: pulses intact, No edema, normal temperature, normal color Peripheral Pulses: within normal limits - Abdominal General gastrointestinal: soft, non-tender, hypoactive bowel sounds - Psychiatric Psychiatric: other (encephalopathic) - Neurologic Neurologic: other (present all patient would do now is tracking with his eyes. Limited movement of the extremity.) Results - Labs CBC & Chem 7: 10/15/18 04:15 10/15/18 04:15 Labs: Laboratory Last Values WBC 0.8 K/mm3 (4.5-11.0) L* 10/15/18 04:15 RBC 2.73 M/mm3 (3.65-5.03) L 10/15/18 04:15 Hgb 8.2 gm/dl (11.8-15.2) L 10/15/18 04:15 Hct 24.4 % (35.5-45.6) L 10/15/18 04:15 MCV 90 fl (84-94) 10/15/18 04:15 MCH 30 pg (28-32) 10/15/18 04:15 MCHC 34 % (32-34) 10/15/18 04:15 RDW 18.8 % (13.2-15.2) H 10/15/18 04:15 Plt Count 237 K/mm3 (140-440) 10/15/18 04:15 [place] % (Auto) Glued Wood Tester 09/29/18 05:00 Eos % (Auto) Glued Wood Tester 10/13/18 04:05 Baso % (Auto) Glued Wood Tester 10/13/18 04:05 Add Manual Diff Complete 10/14/18 Unknown Total Counted 10 10/14/18 Unknown Seg Neutrophils % Glued Wood Tester 10/10/18 08:35 Seg Neuts % (Manual) 70.0 % (40.0-70.0) 10/14/18 Unknown Band Neutrophils % 0 % 10/14/18 Unknown Lymphocytes % (Manual) 10.0 % (13.4-35.0) L 10/14/18 Unknown Reactive Lymphs % (Man) 0 % 10/14/18 Unknown Monocytes % (Manual) 0 % (0.0-7.3) 10/14/18 Unknown Eosinophils % (Manual) 10.0 % (0.0-4.3) H 10/14/18 Unknown Basophils % (Manual) 0 % (0.0-1.8) 10/14/18 Unknown Metamyelocytes % 10.0 % 10/14/18 Unknown Myelocytes % 0 % 10/14/18 Unknown Promyelocytes % 0 % 10/14/18 Unknown Blast Cells % 0 % 10/14/18 Unknown Nucleated RBC % Not Reportable 10/14/18 Unknown Seg Neutrophils # Man 0.4 K/mm3 (1.8-7.7) L 10/14/18 Unknown Band Neutrophils # 0.0 K/mm3 10/14/18 Unknown Abs Lymphs (Manual) 309 cells/uL (850-3900) L 09/13/18 12:29 Lymphocytes # (Manual) 0.1 K/mm3 (1.2-5.4) L 10/14/18 Unknown Abs React Lymphs (Man) 0.0 K/mm3 10/14/18 Unknown Monocytes # (Manual) 0.0 K/mm3 (0.0-0.8) 10/14/18 Unknown Eosinophils # (Manual) 0.1 K/mm3 (0.0-0.4) 10/14/18 Unknown Basophils # (Manual) 0.0 K/mm3 (0.0-0.1) 10/14/18 Unknown Metamyelocytes # 0.1 K/mm3 10/14/18 Unknown Myelocytes # 0.0 K/mm3 10/14/18 Unknown Promyelocytes # 0.0 K/mm3 10/14/18 Unknown Blast Cells # 0.0 K/mm3 10/14/18 Unknown WBC Morphology Not Reportable 10/14/18 Unknown Hypersegmented Neuts Not Reportable 10/14/18 Unknown Hyposegmented Neuts Not Reportable 10/14/18 Unknown Hypogranular Neuts Not Reportable 10/14/18 Unknown Smudge Cells Not Reportable 10/14/18 Unknown Toxic Granulation Not Reportable 10/14/18 Unknown Toxic Vacuolation Not Reportable 10/14/18 Unknown Dohle Bodies Few 10/14/18 Unknown Pelger-Huet Anomaly Not Reportable 10/14/18 Unknown Giovanna Rods Not Reportable 10/14/18 Unknown Platelet Estimate Appears normal 10/14/18 Unknown Clumped Platelets Not Reportable 10/14/18 Unknown Plt Clumps, EDTA Not Reportable 10/14/18 Unknown Large Platelets 1+ 10/14/18 Unknown Giant Platelets Not Reportable 10/14/18 Unknown Platelet Satelliting Not Reportable 10/14/18 Unknown Plt Morphology Comment Not Reportable 10/14/18 Unknown RBC Morphology Not Reportable 10/14/18 Unknown Dimorphic RBCs Not Reportable 10/14/18 Unknown Polychromasia Not Reportable 10/14/18 Unknown Hypochromasia Not Reportable 10/14/18 Unknown Poikilocytosis Not Reportable 10/14/18 Unknown Anisocytosis 2+ 10/14/18 Unknown Microcytosis Not Reportable 10/14/18 Unknown Macrocytosis Not Reportable 10/14/18 Unknown Spherocytes Not Reportable 10/14/18 Unknown Pappenheimer Bodies Not Reportable 10/14/18 Unknown Sickle Cells Not Reportable 10/14/18 Unknown Target Cells Rare 10/14/18 Unknown Tear Drop Cells Not Reportable 10/14/18 Unknown Ovalocytes 2+ 10/14/18 Unknown Stomatocytes 1+ 09/29/18 05:00 Helmet Cells Rare 10/14/18 Unknown [place] Bodies Not Reportable 10/14/18 Unknown [place] Rings Not Reportable 10/14/18 Unknown [place] Cells Few 10/14/18 Unknown Bite Cells Not Reportable 10/14/18 Unknown Crenated Cell Not Reportable 10/14/18 Unknown Elliptocytes 1+ 10/14/18 Unknown Acanthocytes (Spur) Not Reportable 10/14/18 Unknown Rouleaux Not Reportable 10/14/18 Unknown Hemoglobin C Crystals Not Reportable 10/14/18 Unknown Schistocytes Not Reportable 10/14/18 Unknown Malaria parasites Not Reportable 10/14/18 Unknown Kieran Bodies Not Reportable 10/14/18 Unknown Hem Pathologist Commnt No 10/14/18 Unknown PT 16.0 Sec. (12.2-14.9) H 10/10/18 08:09 INR 1.20 (0.87-1.13) H 10/10/18 08:09 APTT 40.9 Sec. (24.2-36.6) H 09/21/18 15:00 Heparin Anti-Xa Level 0.35 U.I./ml (0.3-0.7) 10/05/18 10:19 POC ABG pH 7.336 (7.35-7.45) L 10/12/18 13:30 POC ABG pCO2 31.5 (35-45) L 10/12/18 13:30 POC ABG pO2 122 (80-105) H 10/12/18 13:30 POC ABG HCO3 16.8 10/12/18 13:30 POC ABG Total CO2 18 10/12/18 13:30 POC ABG O2 Sat 99 10/12/18 13:30 POC ABG Base Excess -9 10/12/18 13:30 FiO2 25 % 10/12/18 13:30 Sodium 148 mmol/L (137-145) H 10/15/18 04:15 Potassium 2.9 mmol/L (3.6-5.0) L* 10/15/18 04:15 Chloride 108.5 mmol/L (98-107) H 10/15/18 04:15 Carbon Dioxide 17 mmol/L (22-30) L 10/15/18 04:15 Anion Gap 25 mmol/L 10/15/18 04:15 BUN 127 mg/dL (9-20) H 10/15/18 04:15 Creatinine 6.1 mg/dL (0.8-1.5) H 10/15/18 04:15 Estimated GFR 13 ml/min 10/15/18 04:15 BUN/Creatinine Ratio 21 % 10/15/18 04:15 Glucose 154 mg/dL (75-100) H 10/15/18 04:15 POC Glucose 170 (70-105) H 10/15/18 05:03 Lactic Acid 0.90 mmol/L (0.7-2.0) 09/11/18 20:17 Calcium 7.7 mg/dL (8.4-10.2) L 10/15/18 04:15 Phosphorus 8.50 mg/dL (2.5-4.5) H 10/14/18 09:40 Magnesium 2.10 mg/dL (1.7-2.3) 10/14/18 09:40 Iron 35 ug/dL (49-181) L 10/06/18 09:40 TIBC 157 mcg/dL (250-450) L 10/06/18 09:40 Ferritin 1126.0 ng/mL (13.0-400.0) H 10/06/18 09:40 Total Bilirubin < 0.20 mg/dL (0.1-1.2) 10/15/18 04:15 Direct Bilirubin < 0.2 mg/dL (0-0.2) 09/13/18 07:31 AST 36 units/L (5-40) 10/15/18 04:15 ALT 32 units/L (7-56) 10/15/18 04:15 Alkaline Phosphatase 66 units/L (35-129) 10/15/18 04:15 Ammonia 27.0 umol/L (25-60) 10/03/18 13:23 Total Creatine Kinase 113 units/L (55-170) 10/11/18 05:20 CK-MB (CK-2) 2.6 ng/mL (0.0-4.0) 10/11/18 05:20 CK-MB (CK-2) Rel Index 0.5 (0-4) 09/21/18 04:25 NT-Pro-B Natriuret Pep 145.9 pg/mL (0-450) 09/18/18 16:07 Total Protein 6.0 g/dL (6.3-8.2) L 10/15/18 04:15 Albumin 2.3 g/dL (3.9-5) L 10/15/18 04:15 Albumin/Globulin Ratio 0.6 % 10/15/18 04:15 Vitamin B12 934.5 pg/mL (211-911) H 09/16/18 11:41 Folate 6.71 ng/mL (7.3-26.0) L 10/06/18 09:40 TSH 5.190 mlU/mL (0.270-4.200) H 09/18/18 12:46 Free T4 0.75 ng/dL (0.76-1.46) L 09/18/18 12:46 Urine Color Yellow (Yellow) 10/11/18 05:40 Urine Turbidity Slightly-cloudy (Clear) 10/11/18 05:40 Urine pH 5.0 (5.0-7.0) 10/11/18 05:40 Ur Specific [place] 1.012 (1.003-1.030) 10/11/18 05:40 Urine Protein 30 mg/dl mg/dL (Negative) 10/11/18 05:40 Urine Glucose (UA) Neg mg/dL (Negative) 10/11/18 05:40 Urine Ketones Neg mg/dL (Negative) 10/11/18 05:40 Urine Blood Mod (Negative) 10/11/18 05:40 Urine Nitrite Neg (Negative) 10/11/18 05:40 Urine Bilirubin Neg (Negative) 10/11/18 05:40 Urine Urobilinogen < 2.0 mg/dL (<2.0) 10/11/18 05:40 Ur Leukocyte Esterase Neg (Negative) 10/11/18 05:40 Urine WBC (Auto) 8.0 /HPF (0.0-6.0) H 10/11/18 05:40 Urine RBC (Auto) 45.0 /HPF (0.0-6.0) 10/11/18 05:40 U Epithel Cells (Auto) 2.0 /HPF (0-13.0) 10/11/18 05:40 Urine Bacteria (Auto) 1+ /HPF (Negative) 10/11/18 05:40 Urine Mucus Few /HPF 10/11/18 05:40 Urine Creatinine 57.5 mg/dL (0.1-20.0) H 10/11/18 05:40 Protein/Creatinin Ratio 0.77 10/11/18 05:40 Urine Sodium 70 mmol/L 10/11/18 05:40 Urine Chloride 35.1 mmolL (110-250) L 10/11/18 05:40 Urine Total Protein 44 mg/dL (5-11.8) H 10/11/18 05:40 CSF Appearance Bloody 10/10/18 Unknown CSF Color Red 10/10/18 Unknown CSF WBC 10 /mm3 (1-10) 10/10/18 Unknown CSF RBC 92615 /mm3 (0-0) 10/10/18 Unknown CSF Seg Neutrophils 14.0 % (0-6) 10/10/18 Unknown CSF Lymphocytes % 44.0 % (40-80) 10/10/18 Unknown CSF Reactive Lymphs 0 % 10/10/18 Unknown CSF Monocytes % 38.0 % (15-45) 10/10/18 Unknown CSF Eosinophils % 4.0 % 10/10/18 Unknown CSF Basophils 0 % 10/10/18 Unknown CSF Pathologist Review C 10/10/18 Unknown CSF Glucose 47 mg/dL 10/10/18 Unknown CSF Total Protein 84 mg/dL 10/10/18 Unknown CSF VDRL Reactive 1:2 (Nonreactive) H 10/10/18 Unknown Vancomycin Trough 14.3 ug/mL (5.0-20.0) 09/25/18 14:45 Random Vancomycin 10.7 ug/mL (0-40.0) 10/12/18 03:30 Urine Opiates Screen Presumptive negative 09/17/18 15:52 Urine Methadone Screen Presumptive negative 09/17/18 15:52 Ur Barbiturates Screen Presumptive negative 09/17/18 15:52 Ur Phencyclidine Scrn Presumptive negative 09/17/18 15:52 Ur Amphetamines Screen Presumptive negative 09/17/18 15:52 U Benzodiazepines Scrn Presumptive negative 09/17/18 15:52 Urine Cocaine Screen Presumptive negative 09/17/18 15:52 U Marijuana (THC) Screen Presumptive negative 09/17/18 15:52 Drugs of Abuse Note Disclamer 09/17/18 15:52 Complement C3 184 mg/dL (82-185) 10/12/18 09:46 Complement C4 45 mg/dL (15-53) 10/12/18 09:46 Lymph Enumerat CD4/CD8 0.01 (0.86-5.00) L 09/13/18 12:29 % CD3 Cells 71 % (57-85) 09/13/18 12:29 Absolute CD3 Count 220 cells/uL (840-3060) L 09/13/18 12:29 % CD4 Cells 1 % (30-61) L 09/13/18 12:29 Absolute CD4 Count 4 cells/uL (490-1740) L 09/13/18 12:29 % CD8 Cells 70 % (12-42) H 09/13/18 12:29 Absolute CD8 Count 216 cells/uL (180-1170) 09/13/18 12:29 % CD19 Cells 17 % (6-29) 09/13/18 12:29 Absolute CD19 Count 54 cells/uL (110-660) L 09/13/18 12:29 RPR Titer 1:16 09/13/18 12:29 RPR Reactive (Nonreactive) 09/13/18 12:29 T.pallidum Ab (FTA-ABS) Reactive (Nonreactive) H 09/14/18 16:34 C. difficile Toxin A&B Negative (Negative) 09/12/18 05:30 CMV DNA PCR log copy coordinator/mL See scanned results 10/03/18 06:12 Hepatitis A IgM Ab Non-reactive (NonReactive) 09/13/18 12:29 Hep Bs Antigen Non-reactive (Negative) 09/13/18 12:29 Hep B Core IgM Ab Non-reactive (NonReactive) 09/13/18 12:29 Hepatitis C Antibody Non-reactive (NonReactive) 09/13/18 12:29 HIV-1 Antibody See scanned result 09/11/18 19:14 HIV-1 RNA PCR copies/ml 32669 Copies/mL H 09/13/18 12:29 HIV-1 RNA (PCR) log 4.71 Log cps/mL H 09/13/18 12:29 HIV-2 Ab (Immunoblot) See scanned result 09/11/18 19:14 HIV 1&2 Antibody Rapid Reactive (Non React) 09/11/18 19:14 HIV P24 Antigen Non react (Non React) 09/11/18 19:14 Influenza A (Rapid) Negative (Negative) 09/13/18 16:05 Influenza A (RT-PCR) Negative (Negative) 09/13/18 16:05 Influenza B (Rapid) Negative (Negative) 09/13/18 16:05 Influenza B (RT-PCR) Negative (Negative) 09/13/18 16:05 Toxoplasma IgG Ab <7.20 IU/mL (<7.20) 09/16/18 12:09 Miscellaneous Test Flexitest 1 H 10/10/18 Unknown - Imaging and Cardiology Chest x-ray: report reviewed, image reviewed CT scan - chest: report reviewed, image reviewed MRI - head: other (MRI) Nutrition/Malnutrition Assess - Dietary Evaluation Nutrition/Malnutrition Findings: Nutrition Notes Start: 09/12/18 17:45 Freq: Status: Active Protocol: Document 10/14/18 09:51 CP (Rec: 10/14/18 09:55 CP [id number]) Co-Sign 10/14/18 09:51 LP Nutrition Notes Initial or Follow up Reassessment Current Diagnosis Acute Kidney Injury Sepsis Respiratory Failure Other Pertinent Diagnosis HIV, bilat pneu, gastroenteritis, encephalopathy Current Diet TF- Vital High Protein at 70ml /hr Labs/Tests Reviewed Pertinent Medications Reviewed Height 6 ft Weight 130.7 kg Rew Body Weight (kg) 80.90 BMI 39.0 Subjective/Other Information Observed TF running at goal ( 70 mL). Per nurse, pt is tolerating TF and water flush of 200 mL was administered 09: 30 today. Percent of energy/protein needs met: 86%/90% Burn Absent Trauma Absent #2 Nutrition Diagnosis Inadequate oral intake Diagnosis Progress(for reassessment Continues documentation) #1 Nutrition Diagnosis Malnutrition Diagnosis Progress(for reassessment Continues documentation) Is patient on ventilator? Yes Is Patient Ambulatory and/or Out of Bed No REE-([facility]-confined to bed) 2749.596 Kcal/Kg value to use for calculation 15 Approximate Energy Requirements Using 1961 kcal/Kg Additional Notes Pro needs 2g/kg IBW: 162g/day Fluid needs 1ml/kcal Nutrition Intervention Change Diet Order: Continue TF Nutrition Support: Vital HP at 70ml/hr Kcal 1,680 Protein (gm) 147 Fluid (mL) 1,404 Goal #1 Continue to meet at least 80% of PRO and kcal needs with TF. Anticipated Discharge Needs: Unable to determine at this time Follow-Up By: 10/21/18 Additional Comments F/U: Stable TF/TF tolerance
[2018-10-15] MEDS: TRANSDERM-SCOP TD SCH (17:25)
[2018-10-15 18:37] LABS: Calcium 7.5 mg/dL (8.4-10.2)
[2018-10-16] MEDS: PROVENTIL IH SCH ×4 (03:59→20:41)
[2018-10-16] MEDS: ROBINUL PO SCH ×4 (05:42→18:58)
[2018-10-16] MEDS: SYNTHROID PO SCH (05:42)
[2018-10-16] MEDS: HEPARIN SUB-Q SCH ×3 (05:43→21:51)
--- NOTE | 2018-10-16 08:09 | Hem/Onc Progress Note ---
Assessment and Plan 1. Leukopenia. ANC is 0.5. Neutropenic precaution is practical. 2. Anemia. We will investigate. 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 HAART has been started. At this time, there is no fever. 3. Human immunodeficiency virus, on HAART. 4. 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 5. Intubated. 6. On antibiotics for pneumonia. 7. History of ____ that is improved. 8. Looks at you, but does not communicate. 9. History of oral candidiasis. 10. Mention of giardiasis. 11. Encephalopathy. 12. RVR with atrial fibrillation. I will follow the patient during inpatient stay. At this time, his cytopenia is likely secondary to the HIV or the CMV. I will discuss with ID team to see if G-CSF support is an option. 10/07 - d/w ID - reg GCSF ANC improving 0.7 today - will watch low folate - replace 10/09 - moving rt arm - GCSF trial for 2 days 10/10 - a&p technician worse - d/w RN reg same - I had spoken to hospitalist - dr reyna - yesterday about this 10/11 - s/p GCSF - not much change in WBC or overall performance - as per RN - plan for trach and PEG a&p technician high - nephrology 10/12 - trach - peg not done - as family deciding the GCSF - did not change the WBC 10/13 - wbc 1 - opens eye - non communicative 10/14 - pt moves rt arm - eyes open still on vent - as per info - family is thinking about PEG - trach - they have not consented granix trial for low wbc 10/15 - gcsf trial - poor prognosis due to performance status 10/16 - dialysis cath wbc low - gCSF - Patient Problems (1) Neutropenia Current Visit: Yes Status: Acute Subjective Date of service: 10/16/18 Principal diagnosis: low wbc Interval history: non communicative Objective - Exam Narrative Exam: on vent - moves rt arm - eyes open - Constitutional Vitals: Last Vital Signs Temp 98.8 F 10/16/18 03:14 Pulse 86 10/16/18 08:00 Resp 14 10/16/18 08:00 BP 114/68 10/16/18 08:00 Pulse Ox 98 10/16/18 08:00 General appearance: no acute distress Performance status: 4-completely disabled - EENT ENT: other (vent) Lymph node exam: negative cervical - Respiratory Respiratory effort: Positive: other (intubated) Respiratory: bilateral: diminished (anteriorly) - Cardiovascular Heart Sounds: Present: S1 & S2 Extremity abnormal: edema - Gastrointestinal General gastrointestinal: Present: soft Rectal Exam: deferred - Genitourinary Male genitourinary: Present: deferred - Integumentary Integumentary: warm - Musculoskeletal Musculoskeletal: other (moves rt arm) - Neurologic Neurologic: other (non communicative) - Labs Lab Results: Laboratory Results - last 24 hr 10/15/18 10/15/18 10/15/18 12:23 17:42 17:49 Sodium 146 H Potassium 3.0 L Chloride 109.4 H Carbon Dioxide 16 L Anion Gap 24 BUN 124 H Creatinine 5.6 H Estimated GFR 14 BUN/Creatinine Ratio 22 Glucose 162 H POC Glucose 180 H 173 H Calcium 7.5 L 10/15/18 10/16/18 23:56 05:37 Sodium Potassium Chloride Carbon Dioxide Anion Gap BUN Creatinine Estimated GFR BUN/Creatinine Ratio Glucose POC Glucose 164 H 152 H Calcium Medications & Allergies - Medications Allergies/Adverse Reactions: Allergies No Known Allergies Allergy (Unverified 09/11/18 17:50) Home Medications: Home Medications Medication Instructions Recorded Confirmed Last Taken Type No Known Home Medications [No 10/02/18 10/02/18 Unknown History Reported Home Medications] Active Medications: Generic Name Dose Route Start Last Admin Trade Name Freq PRN Reason Stop Dose Admin Acetaminophen 650 mg 09/11/18 19:30 10/09/18 16:32 Tylenol PO 650 mg Q4H PRN Administration Pain MILD(1-3)/Fever >100.5/RIVERA Acetaminophen 650 mg 09/21/18 07:39 10/07/18 21:15 Tylenol OK 650 mg Q4H PRN Administration Fever >101 Albuterol 2.5 mg 09/11/18 19:30 09/16/18 06:09 Proventil IH 2.5 mg Q4HRT PRN Administration Shortness Of Breath Albuterol 2.5 mg 09/20/18 20:00 10/16/18 07:56 Proventil IH 2.5 mg Q6HRT GIA Administration Amiodarone HCl 200 mg 09/27/18 15:00 10/15/18 22:10 Cordarone PO 200 mg BID GIA Administration Lipase/Protease/Amylase 1 each 09/30/18 12:01 Abril Gibbs 10,500 Unit FEEDTUBE PRN PRN For Clogged Feeding Tube Atovaquone 750 mg 09/21/18 10:00 10/15/18 22:11 Mepron PO 750 mg BID GIA Administration Emtricitabine 200 mg 10/13/18 10:00 10/13/18 10:37 Emtriva PO 200 mg Q96H GIA Administration Famotidine 20 mg 10/10/18 10:00 10/15/18 11:26 Pepcid PO 20 mg DAILY GIA Administration Fluconazole 200 mg 10/05/18 12:00 10/15/18 11:23 Diflucan PO 200 mg QDAY GIA Administration Folic Acid 1 mg 10/07/18 10:00 10/15/18 11:25 Folvite PO 1 mg QDAY GIA Administration Glycopyrrolate 2 mg 10/07/18 18:00 10/16/18 05:42 Robinul PO 2 mg Q6HR GIA Administration Heparin Sodium (Porcine) 5,000 unit 10/05/18 14:00 10/16/18 05:43 Heparin SUB-Q 5,000 unit Q8HR GIA Administration Hydrophilic Ointment 1 applic 09/21/18 01:46 09/22/18 03:46 Vaseline Lip Therapy TP 1 applic Q2HR PRN Administration Dry Lips Cefepime HCl 2 gm in 100 mls @ 200 mls/hr 10/10/18 11:30 10/15/18 11:27 Maxipime/Ns 2 Gm/100 Ml IV 200 mls/hr Q24HR GIA Administration Protocol Ganciclovir Sodium 150 mg/ 250 mls @ 100 mls/hr 10/12/18 10:00 10/14/18 12:07 Sodium Chloride IV 100 mls/hr MoWeFr GIA Administration Sodium Bicarbonate 150 meq/ 1,150 mls @ 75 mls/hr 10/14/18 08:30 10/14/18 11:43 Dextrose IV 75 mls/hr DIRECT GIA Administration Sodium Chloride 100 mls @ 999 mls/hr 10/15/18 12:33 Nacl 0.9% IV CHERYL PRN Hypotension Levetiracetam 750 mg 10/12/18 22:00 10/15/18 22:06 Keppra PO 750 mg BID GIA Administration Levothyroxine Sodium 25 mcg 09/19/18 06:00 10/16/18 05:42 Synthroid PO 25 mcg DAILY@0600 GIA Administration Metoprolol Tartrate 12.5 mg 10/10/18 13:00 10/15/18 22:09 Lopressor PO 12.5 mg BID GIA Administration Multi-Ingred Cream/Lotion/Oil/Oint 1 applic 09/21/18 01:46 Artificial Tears Ophth Oint OU Q4HR PRN Dry Eye(s) Ondansetron HCl 4 mg 09/11/18 19:30 Zofran IV Q8H PRN Nausea And Vomiting Scopolamine 1 each 09/18/18 18:00 10/15/18 17:25 Transderm-Scop TD 1 each Q3D GIA Administration Simple Syrup 15 ml 09/30/18 12:01 10/07/18 06:18 Simple Syrup FEEDTUBE 15 ml PRN PRN Administration Hypoglycemia Simple Syrup 15 ml 10/15/18 10:45 Simple Syrup FEEDTUBE PRN PRN Hypoglycemia Simple Syrup 30 ml 10/15/18 10:45 Simple Syrup FEEDTUBE PRN PRN Hypoglycemia Sodium Bicarbonate 325 mg 10/15/18 10:45 Sodium Bicarbonate FEEDTUBE PRN PRN For Clogged Feeding Tube Sodium Chloride 10 ml 09/11/18 22:00 10/15/18 23:46 Sodium Chloride Flush Syringe 10 Ml IV 10 ml BID GIA Administration Sodium Chloride 10 ml 09/11/18 19:30 Sodium Chloride Flush Syringe 10 Ml IV PRN PRN LINE FLUSH Tbo-Filgrastim 480 mcg 10/14/18 10:00 10/15/18 12:46 Granix SUB-Q 10/16/18 23:59 480 mcg DAILY GIA Administration Tenofovir Disoproxil Fumarate 300 mg 10/13/18 10:00 10/13/18 10:37 Viread PO 300 mg Q96H GIA Administration
[2018-10-16 08:19] LABS: Hematocrit 24.4 % (35.5-45.6); Mean Corpuscular HGB Conc 33 % (32-34); Mean Corpuscular Volume 90 fl (84-94); Platelet Count 208 K/mm3 (140-440); Red Cell Distribution Width 18.9 % (13.2-15.2)
[2018-10-16 08:31] LABS: Calcium 8.1 mg/dL (8.4-10.2)
[2018-10-16] MEDS: LOPRESSOR PO SCH ×2 (09:16→21:49)
[2018-10-16] MEDS: FOLVITE PO SCH (09:16)
[2018-10-16] MEDS: PEPCID PO SCH (09:17)
[2018-10-16] MEDS: DIFLUCAN PO SCH (09:17)
[2018-10-16] MEDS: CORDARONE PO SCH ×2 (09:17→21:50)
[2018-10-16] MEDS: TIVICAY PO SCH (09:18)
[2018-10-16] MEDS: KEPPRA PO SCH ×2 (09:18→21:50)
[2018-10-16] MEDS: MEPRON PO SCH ×2 (09:19→22:26)
[2018-10-16] MEDS: MAXIPIME/NS 2 GM/100 ML 2 GM/100 ML BAG IV SCH (09:19)
[2018-10-16] MEDS: SODIUM CHLORIDE FLUSH SYRINGE 10 ML IV SCH ×2 (09:20→22:26)
[2018-10-16 09:32] LABS: Band Neutrophils # (Manual) 0.2 K/mm3; Basophils % (Manual) 0 % (0.0-1.8); Eosinophils % (Manual) 0 % (0.0-4.3); Total Cells Counted 50
[2018-10-16 09:33] LABS: Anisocytosis 1+
[2018-10-16 09:34] LABS: Poikilocytosis 1+
[2018-10-16] MEDS: GRANIX SUB-Q SCH (09:51)
--- NOTE | 2018-10-16 10:46 | Event Note ---
Date: 10/16/18 patient needs VasCath for initiation of HD. Could not reach patient's sister to get informed consent. Will continue attempts.
[2018-10-16] MEDS ORDERED: SUBLIMAZE ONE (11:28)
[2018-10-16] MEDS ORDERED: DIPRIVAN 10 MG/ML IV ONE ×2 (11:28→12:00)
--- NOTE | 2018-10-16 11:30 | Progress Note ---
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 He did not use condom consistently. - CD4=4 - VL=50,700 Elevated LFTs: resolved Neutropenia/thrombocytopenia Hypernatremia -For vascath placement today and initiation of HD -VAP bundle addressed -Lung protective strategies -Antimicrobials per ID, HAART per ID - continue supplemental oxygen to keep sats > 90% - continue bronchodilators with pulmonary - continue daily SBT's, at this time mental status precludes liberation from MVS - monitor for drug-drug interactions - continue enteral nutrition as tolerated - PT/OT/ROM exercises as tolerated - mobility protocol for pressure ulcer prevention - continue GI & VTE prophylaxis -Re-culture if any fevers -Replete electrolytes as indicated -Plan for meeting and telephone conversation with sister, and case management tomorrow to address code status, goals of care. - continue other care per attending / other consultants The high probability of a clinically significant, sudden or life threatening deterioration of the [cardiac, respiratory and neurologic] system(s) required my full and direct attention, intervention and personal management. The aggregate critical care time was [30] minutes. This time is in addition to time spent performing reported procedures but includes the following: [x] Data Review and interpretation [x] Patient assessment and monitoring of vital signs [x] Documentation Subjective Date of service: 10/16/18 Principal diagnosis: low wbc Interval history: 33 y/o male with no PMH; admitted on 09/11/2018 due to 4 days-AMS/behavioral changes, nausea, voimiting, diarrhea, weight loss and cough: Patient is seen today for: Severe sepsis (present on admission with fever, tachycardia, hypotension and elevated lactate); Acute hypoxemic Respiratory failure; Bilateral pneumonia; Acute encephalopathy (Toxic / Metabolic); Atrial Fibrillation with RVR; HIV-AIDS Seen and examined at bedside; 24hour events reviewed; nursing and respiratory care staff consulted; no adverse overnight events reported to me; resting peacefully in bed; generalized edema with ongoing diarrhea. No further fevers overnight, Oral secretions, awake but not obeying commands. Remains on MVS, PSV 10/6 during the day with tidal volumes of about 350ml, not in any distress. Full ventilatory support at night. On going diarrhea No new events overnight Sister is leaning towards withdrawal of care but is agreeable to HD as recommended by renal service. For vascath placement today Objective Vital Signs - 12hr 10/15/18 10/16/18 10/16/18 23:38 00:00 01:00 Temperature Pulse Rate 93 H 93 H Pulse Rate [ Bases] Pulse Rate [ 70 From Monitor] Pulse Rate [ Throughout] Respiratory 20 21 20 Rate Respiratory Rate [Bases] Respiratory Rate [ Generalized] Respiratory Rate [ Throughout] Blood Pressure 109/67 119/72 O2 Sat by Pulse 99 96 95 Oximetry 10/16/18 10/16/18 10/16/18 01:52 02:00 03:00 Temperature Pulse Rate 93 H 91 H Pulse Rate [ 96 H Bases] Pulse Rate [ From Monitor] Pulse Rate [ 94 H Throughout] Respiratory 26 H 27 H Rate Respiratory 18 Rate [Bases] Respiratory 21 Rate [ Generalized] Respiratory 18 Rate [ Throughout] Blood Pressure 123/74 123/74 O2 Sat by Pulse 97 100 Oximetry 10/16/18 10/16/18 10/16/18 03:14 03:48 04:00 Temperature 98.8 F Pulse Rate 87 88 Pulse Rate [ Bases] Pulse Rate [ 70 From Monitor] Pulse Rate [ Throughout] Respiratory 14 21 Rate Respiratory Rate [Bases] Respiratory Rate [ Generalized] Respiratory Rate [ Throughout] Blood Pressure 129/72 126/73 O2 Sat by Pulse 100 98 Oximetry 10/16/18 10/16/18 10/16/18 05:01 06:00 07:00 Temperature Pulse Rate 93 H 83 84 Pulse Rate [ Bases] Pulse Rate [ From Monitor] Pulse Rate [ Throughout] Respiratory 26 H 13 17 Rate Respiratory Rate [Bases] Respiratory Rate [ Generalized] Respiratory Rate [ Throughout] Blood Pressure 126/73 117/69 125/66 O2 Sat by Pulse 100 98 97 Oximetry 10/16/18 10/16/18 10/16/18 07:50 07:53 07:57 Temperature Pulse Rate 83 85 Pulse Rate [ 86 Bases] Pulse Rate [ From Monitor] Pulse Rate [ Throughout] Respiratory 15 Rate Respiratory 16 Rate [Bases] Respiratory Rate [ Generalized] Respiratory Rate [ Throughout] Blood Pressure 125/66 125/66 O2 Sat by Pulse 100 100 Oximetry 10/16/18 10/16/18 10/16/18 08:00 08:16 09:00 Temperature 97.3 F L Pulse Rate 86 85 Pulse Rate [ 93 H Bases] Pulse Rate [ 84 From Monitor] Pulse Rate [ Throughout] Respiratory 14 16 Rate Respiratory 22 Rate [Bases] Respiratory Rate [ Generalized] Respiratory Rate [ Throughout] Blood Pressure 114/68 121/70 O2 Sat by Pulse 98 96 Oximetry Constitutional: no acute distress, alert, other (orally intubated ETT at 23cm) Eyes: non-icteric ENT: oropharynx moist, other (ETT 25 cm NIKA) Neck: supple, no lymphadenopathy, other (no thyromegaly) Effort: normal Ascultation: Bilateral: rales, rhonchi (scant) Percussion: Bilateral: not dull Cardiovascular: regular rate and rhythm, other (S1,S2, no murmurs, gallps or rubs) Gastrointestinal: normoactive bowel sounds, soft, non-tender, non-distended Integumentary: rash Extremities: no cyanosis, pulses normal, no ischemia or petechiae, edema Neurologic: pupils equal and round, other (Left sided hemiparesis) Psychiatric: other (unable to assess) CBC and BMP: 10/16/18 07:50 10/16/18 07:50 ABG, PT/INR, D-dimer: ABG POC ABG pH 7.336 (7.35-7.45) L 10/12/18 13:30 POC ABG pCO2 31.5 (35-45) L 10/12/18 13:30 POC ABG pO2 122 (80-105) H 10/12/18 13:30 POC ABG HCO3 16.8 10/12/18 13:30 POC ABG Total CO2 18 10/12/18 13:30 POC ABG O2 Sat 99 10/12/18 13:30 PT/INR, D-dimer PT 16.0 Sec. (12.2-14.9) H 10/10/18 08:09 INR 1.20 (0.87-1.13) H 10/10/18 08:09 Abnormal lab findings: Abnormal Labs 09/11/18 09/11/18 09/11/18 18:00 18:00 18:00 WBC 1.9 L* RBC Hgb Hct RDW Plt Count 130 L Seg Neuts % (Manual) Lymphocytes % (Manual) Monocytes % (Manual) 16.0 H Eosinophils % (Manual) Basophils % (Manual) Nucleated RBC % Seg Neutrophils # Man 0.9 L Abs Lymphs (Manual) Lymphocytes # (Manual) 0.5 L Basophils # (Manual) PT INR APTT Heparin Anti-Xa Level POC ABG pH POC ABG pCO2 POC ABG pO2 Sodium 131 L Potassium Chloride Carbon Dioxide 17 L BUN 21 H Creatinine Glucose 126 H POC Glucose Lactic Acid 2.60 H* Calcium 8.1 L Phosphorus Magnesium Iron TIBC Ferritin AST 123 H ALT 115 H Total Creatine Kinase Total Protein Albumin 3.0 L Vitamin B12 Folate TSH Free T4 Urine WBC (Auto) Urine Creatinine Urine Chloride Urine Total Protein CSF VDRL Lymph Enumerat CD4/CD8 Absolute CD3 Count % CD4 Cells Absolute CD4 Count % CD8 Cells Absolute CD19 Count T.pallidum Ab (FTA-ABS) HIV-1 RNA PCR copies/ml HIV-1 RNA (PCR) log Miscellaneous Test 09/11/18 09/13/18 09/13/18 19:01 04:28 07:31 WBC 2.0 L RBC Hgb Hct RDW Plt Count 116 L Seg Neuts % (Manual) Lymphocytes % (Manual) Monocytes % (Manual) 8.0 H Eosinophils % (Manual) Basophils % (Manual) Nucleated RBC % Seg Neutrophils # Man 1.0 L Abs Lymphs (Manual) Lymphocytes # (Manual) 0.5 L Basophils # (Manual) PT INR APTT Heparin Anti-Xa Level POC ABG pH POC ABG pCO2 POC ABG pO2 Sodium Potassium Chloride 110.4 H Carbon Dioxide 19 L BUN Creatinine Glucose POC Glucose Lactic Acid 3.70 H* Calcium 7.9 L Phosphorus Magnesium Iron TIBC Ferritin AST ALT Total Creatine Kinase Total Protein Albumin Vitamin B12 Folate TSH Free T4 Urine WBC (Auto) Urine Creatinine Urine Chloride Urine Total Protein CSF VDRL Lymph Enumerat CD4/CD8 Absolute CD3 Count % CD4 Cells Absolute CD4 Count % CD8 Cells Absolute CD19 Count T.pallidum Ab (FTA-ABS) HIV-1 RNA PCR copies/ml HIV-1 RNA (PCR) log Miscellaneous Test 09/13/18 09/13/18 09/13/18 07:31 12:29 12:29 WBC RBC Hgb Hct RDW Plt Count Seg Neuts % (Manual) Lymphocytes % (Manual) Monocytes % (Manual) Eosinophils % (Manual) Basophils % (Manual) Nucleated RBC % Seg Neutrophils # Man Abs Lymphs (Manual) 309 L Lymphocytes # (Manual) Basophils # (Manual) PT INR APTT Heparin Anti-Xa Level POC ABG pH POC ABG pCO2 POC ABG pO2 Sodium Potassium Chloride Carbon Dioxide BUN Creatinine Glucose POC Glucose Lactic Acid Calcium Phosphorus Magnesium Iron TIBC Ferritin AST 70 H ALT 68 H Total Creatine Kinase Total Protein Albumin 2.5 L Vitamin B12 Folate TSH Free T4 Urine WBC (Auto) Urine Creatinine Urine Chloride Urine Total Protein CSF VDRL Lymph Enumerat CD4/CD8 0.01 L Absolute CD3 Count 220 L % CD4 Cells 1 L Absolute CD4 Count 4 L % CD8 Cells 70 H Absolute CD19 Count 54 L T.pallidum Ab (FTA-ABS) HIV-1 RNA PCR copies/ml 16877 H HIV-1 RNA (PCR) log 4.71 H Miscellaneous Test 09/13/18 09/14/18 09/14/18 12:29 07:17 16:34 WBC RBC Hgb Hct RDW Plt Count Seg Neuts % (Manual) Lymphocytes % (Manual) Monocytes % (Manual) Eosinophils % (Manual) Basophils % (Manual) Nucleated RBC % Seg Neutrophils # Man Abs Lymphs (Manual) Lymphocytes # (Manual) Basophils # (Manual) PT INR APTT Heparin Anti-Xa Level POC ABG pH POC ABG pCO2 POC ABG pO2 Sodium Potassium 3.4 L Chloride Carbon Dioxide 18 L BUN Creatinine Glucose 104 H POC Glucose Lactic Acid Calcium 7.6 L Phosphorus Magnesium Iron TIBC Ferritin AST 49 H ALT Total Creatine Kinase Total Protein Albumin 2.5 L Vitamin B12 Folate TSH Free T4 Urine WBC (Auto) Urine Creatinine Urine Chloride Urine Total Protein CSF VDRL Lymph Enumerat CD4/CD8 Absolute CD3 Count % CD4 Cells Absolute CD4 Count % CD8 Cells Absolute CD19 Count T.pallidum Ab (FTA-ABS) Reactive H HIV-1 RNA PCR copies/ml HIV-1 RNA (PCR) log Miscellaneous Test Flexitest 1 H 09/15/18 09/15/18 09/15/18 05:05 05:05 Unknown WBC 1.6 L* RBC Hgb 10.4 L Hct 31.1 L D RDW Plt Count 113 L Seg Neuts % (Manual) Lymphocytes % (Manual) Monocytes % (Manual) Eosinophils % (Manual) Basophils % (Manual) Nucleated RBC % Seg Neutrophils # Man Abs Lymphs (Manual) Lymphocytes # (Manual) Basophils # (Manual) PT INR APTT Heparin Anti-Xa Level POC ABG pH POC ABG pCO2 POC ABG pO2 Sodium Potassium Chloride 107.9 H Carbon Dioxide 18 L BUN 6 L Creatinine Glucose POC Glucose Lactic Acid Calcium 7.4 L Phosphorus Magnesium Iron TIBC Ferritin AST ALT Total Creatine Kinase Total Protein Albumin Vitamin B12 Folate TSH Free T4 Urine WBC (Auto) Urine Creatinine Urine Chloride Urine Total Protein CSF VDRL Reactive 1:8 H Lymph Enumerat CD4/CD8 Absolute CD3 Count % CD4 Cells Absolute CD4 Count % CD8 Cells Absolute CD19 Count T.pallidum Ab (FTA-ABS) HIV-1 RNA PCR copies/ml HIV-1 RNA (PCR) log Miscellaneous Test 09/16/18 09/16/18 09/16/18 06:55 11:41 11:41 WBC 2.8 L RBC Hgb 10.9 L Hct 33.5 L RDW Plt Count 135 L Seg Neuts % (Manual) Lymphocytes % (Manual) Monocytes % (Manual) Eosinophils % (Manual) Basophils % (Manual) Nucleated RBC % Seg Neutrophils # Man Abs Lymphs (Manual) Lymphocytes # (Manual) Basophils # (Manual) PT INR APTT Heparin Anti-Xa Level POC ABG pH POC ABG pCO2 POC ABG pO2 Sodium Potassium Chloride Carbon Dioxide BUN Creatinine Glucose POC Glucose Lactic Acid Calcium Phosphorus Magnesium Iron TIBC Ferritin AST ALT Total Creatine Kinase Total Protein Albumin Vitamin B12 Folate TSH 4.210 H Free T4 0.72 L Urine WBC (Auto) Urine Creatinine Urine Chloride Urine Total Protein CSF VDRL Lymph Enumerat CD4/CD8 Absolute CD3 Count % CD4 Cells Absolute CD4 Count % CD8 Cells Absolute CD19 Count T.pallidum Ab (FTA-ABS) HIV-1 RNA PCR copies/ml HIV-1 RNA (PCR) log Miscellaneous Test 09/16/18 09/16/18 09/17/18 11:41 15:43 05:13 WBC 2.0 L RBC Hgb 10.9 L Hct 32.7 L RDW Plt Count Seg Neuts % (Manual) Lymphocytes % (Manual) Monocytes % (Manual) Eosinophils % (Manual) Basophils % (Manual) Nucleated RBC % Seg Neutrophils # Man Abs Lymphs (Manual) Lymphocytes # (Manual) Basophils # (Manual) PT INR APTT Heparin Anti-Xa Level POC ABG pH POC ABG pCO2 29.3 L POC ABG pO2 70 L Sodium Potassium Chloride Carbon Dioxide BUN Creatinine Glucose POC Glucose Lactic Acid Calcium Phosphorus Magnesium Iron TIBC Ferritin AST ALT Total Creatine Kinase Total Protein Albumin Vitamin B12 934.5 H Folate TSH Free T4 Urine WBC (Auto) Urine Creatinine Urine Chloride Urine Total Protein CSF VDRL Lymph Enumerat CD4/CD8 Absolute CD3 Count % CD4 Cells Absolute CD4 Count % CD8 Cells Absolute CD19 Count T.pallidum Ab (FTA-ABS) HIV-1 RNA PCR copies/ml HIV-1 RNA (PCR) log Miscellaneous Test 09/17/18 09/17/18 09/18/18 05:13 21:57 12:46 WBC RBC Hgb Hct RDW Plt Count Seg Neuts % (Manual) Lymphocytes % (Manual) Monocytes % (Manual) Eosinophils % (Manual) Basophils % (Manual) Nucleated RBC % Seg Neutrophils # Man Abs Lymphs (Manual) Lymphocytes # (Manual) Basophils # (Manual) PT INR APTT Heparin Anti-Xa Level POC ABG pH POC ABG pCO2 POC ABG pO2 Sodium Potassium Chloride 107.2 H Carbon Dioxide 21 L BUN 3 L Creatinine 0.7 L Glucose POC Glucose 108 H Lactic Acid Calcium 7.9 L Phosphorus Magnesium Iron TIBC Ferritin AST ALT Total Creatine Kinase Total Protein 6.1 L Albumin 2.6 L Vitamin B12 Folate TSH Free T4 0.75 L Urine WBC (Auto) Urine Creatinine Urine Chloride Urine Total Protein CSF VDRL Lymph Enumerat CD4/CD8 Absolute CD3 Count % CD4 Cells Absolute CD4 Count % CD8 Cells Absolute CD19 Count T.pallidum Ab (FTA-ABS) HIV-1 RNA PCR copies/ml HIV-1 RNA (PCR) log Miscellaneous Test 09/18/18 09/19/18 09/19/18 12:46 04:57 04:57 WBC 2.1 L RBC Hgb 11.4 L Hct 34.2 L RDW Plt Count Seg Neuts % (Manual) Lymphocytes % (Manual) Monocytes % (Manual) Eosinophils % (Manual) Basophils % (Manual) Nucleated RBC % Seg Neutrophils # Man Abs Lymphs (Manual) Lymphocytes # (Manual) Basophils # (Manual) PT INR APTT Heparin Anti-Xa Level POC ABG pH POC ABG pCO2 POC ABG pO2 Sodium Potassium Chloride Carbon Dioxide 19 L BUN 6 L Creatinine Glucose POC Glucose Lactic Acid Calcium 7.9 L Phosphorus Magnesium Iron TIBC Ferritin AST ALT Total Creatine Kinase Total Protein Albumin Vitamin B12 Folate TSH 5.190 H Free T4 Urine WBC (Auto) Urine Creatinine Urine Chloride Urine Total Protein CSF VDRL Lymph Enumerat CD4/CD8 Absolute CD3 Count % CD4 Cells Absolute CD4 Count % CD8 Cells Absolute CD19 Count T.pallidum Ab (FTA-ABS) HIV-1 RNA PCR copies/ml HIV-1 RNA (PCR) log Miscellaneous Test 09/19/18 09/19/18 09/20/18 15:00 15:00 05:33 WBC RBC Hgb Hct RDW Plt Count Seg Neuts % (Manual) Lymphocytes % (Manual) Monocytes % (Manual) Eosinophils % (Manual) Basophils % (Manual) Nucleated RBC % Seg Neutrophils # Man Abs Lymphs (Manual) Lymphocytes # (Manual) Basophils # (Manual) PT INR APTT Heparin Anti-Xa Level POC ABG pH POC ABG pCO2 POC ABG pO2 Sodium 136 L Potassium Chloride Carbon Dioxide 19 L BUN 7 L Creatinine Glucose POC Glucose Lactic Acid Calcium Phosphorus Magnesium Iron TIBC Ferritin AST ALT Total Creatine Kinase Total Protein Albumin Vitamin B12 Folate TSH Free T4 Urine WBC (Auto) Urine Creatinine Urine Chloride Urine Total Protein CSF VDRL Reactive 1:4 H Lymph Enumerat CD4/CD8 Absolute CD3 Count % CD4 Cells Absolute CD4 Count % CD8 Cells Absolute CD19 Count T.pallidum Ab (FTA-ABS) HIV-1 RNA PCR copies/ml HIV-1 RNA (PCR) log Miscellaneous Test Flexitest 1 H 09/20/18 09/21/18 09/21/18 06:52 01:06 03:49 WBC 2.5 L RBC Hgb Hct RDW Plt Count Seg Neuts % (Manual) Lymphocytes % (Manual) Monocytes % (Manual) Eosinophils % (Manual) Basophils % (Manual) Nucleated RBC % Seg Neutrophils # Man Abs Lymphs (Manual) Lymphocytes # (Manual) Basophils # (Manual) PT INR APTT Heparin Anti-Xa Level POC ABG pH 7.159 L POC ABG pCO2 32.9 L 70.0 H POC ABG pO2 62 L 254 H Sodium Potassium Chloride Carbon Dioxide BUN Creatinine Glucose POC Glucose Lactic Acid Calcium Phosphorus Magnesium Iron TIBC Ferritin AST ALT Total Creatine Kinase Total Protein Albumin Vitamin B12 Folate TSH Free T4 Urine WBC (Auto) Urine Creatinine Urine Chloride Urine Total Protein CSF VDRL Lymph Enumerat CD4/CD8 Absolute CD3 Count % CD4 Cells Absolute CD4 Count % CD8 Cells Absolute CD19 Count T.pallidum Ab (FTA-ABS) HIV-1 RNA PCR copies/ml HIV-1 RNA (PCR) log Miscellaneous Test 09/21/18 09/21/18 09/21/18 04:15 04:15 04:25 WBC 3.1 L RBC Hgb 11.6 L Hct RDW Plt Count Seg Neuts % (Manual) Lymphocytes % (Manual) Monocytes % (Manual) 12.0 H Eosinophils % (Manual) Basophils % (Manual) Nucleated RBC % Seg Neutrophils # Man 1.6 L Abs Lymphs (Manual) Lymphocytes # (Manual) 0.5 L Basophils # (Manual) PT INR APTT Heparin Anti-Xa Level POC ABG pH POC ABG pCO2 POC ABG pO2 Sodium Potassium 6.1 H* D Chloride Carbon Dioxide 19 L BUN Creatinine Glucose 108 H POC Glucose Lactic Acid Calcium Phosphorus Magnesium Iron TIBC Ferritin AST ALT Total Creatine Kinase 685 H Total Protein Albumin Vitamin B12 Folate TSH Free T4 Urine WBC (Auto) Urine Creatinine Urine Chloride Urine Total Protein CSF VDRL Lymph Enumerat CD4/CD8 Absolute CD3 Count % CD4 Cells Absolute CD4 Count % CD8 Cells Absolute CD19 Count T.pallidum Ab (FTA-ABS) HIV-1 RNA PCR copies/ml HIV-1 RNA (PCR) log Miscellaneous Test 09/21/18 09/21/18 09/21/18 09:59 10:07 11:00 WBC RBC Hgb 11.7 L Hct RDW Plt Count Seg Neuts % (Manual) Lymphocytes % (Manual) Monocytes % (Manual) Eosinophils % (Manual) Basophils % (Manual) Nucleated RBC % Seg Neutrophils # Man Abs Lymphs (Manual) Lymphocytes # (Manual) Basophils # (Manual) PT INR APTT Heparin Anti-Xa Level POC ABG pH 7.301 L POC ABG pCO2 POC ABG pO2 109 H Sodium Potassium 6.5 H* Chloride Carbon Dioxide 18 L BUN Creatinine 2.1 H D Glucose POC Glucose Lactic Acid Calcium 8.1 L Phosphorus Magnesium Iron TIBC Ferritin AST 94 H ALT Total Creatine Kinase Total Protein Albumin 2.8 L Vitamin B12 Folate TSH Free T4 Urine WBC (Auto) Urine Creatinine Urine Chloride Urine Total Protein CSF VDRL Lymph Enumerat CD4/CD8 Absolute CD3 Count % CD4 Cells Absolute CD4 Count % CD8 Cells Absolute CD19 Count T.pallidum Ab (FTA-ABS) HIV-1 RNA PCR copies/ml HIV-1 RNA (PCR) log Miscellaneous Test 09/21/18 09/21/18 09/21/18 15:00 21:54 21:54 WBC RBC Hgb Hct RDW Plt Count Seg Neuts % (Manual) Lymphocytes % (Manual) Monocytes % (Manual) Eosinophils % (Manual) Basophils % (Manual) Nucleated RBC % Seg Neutrophils # Man Abs Lymphs (Manual) Lymphocytes # (Manual) Basophils # (Manual) PT 19.9 H INR 1.65 H APTT 40.9 H Heparin Anti-Xa Level 0.98 H POC ABG pH POC ABG pCO2 POC ABG pO2 Sodium Potassium 5.2 H Chloride Carbon Dioxide BUN Creatinine Glucose POC Glucose Lactic Acid Calcium Phosphorus Magnesium Iron TIBC Ferritin AST ALT Total Creatine Kinase Total Protein Albumin Vitamin B12 Folate TSH Free T4 Urine WBC (Auto) Urine Creatinine Urine Chloride Urine Total Protein CSF VDRL Lymph Enumerat CD4/CD8 Absolute CD3 Count % CD4 Cells Absolute CD4 Count % CD8 Cells Absolute CD19 Count T.pallidum Ab (FTA-ABS) HIV-1 RNA PCR copies/ml HIV-1 RNA (PCR) log Miscellaneous Test 09/21/18 09/22/18 09/22/18 22:57 03:01 05:27 WBC RBC Hgb Hct RDW Plt Count Seg Neuts % (Manual) Lymphocytes % (Manual) Monocytes % (Manual) Eosinophils % (Manual) Basophils % (Manual) Nucleated RBC % Seg Neutrophils # Man Abs Lymphs (Manual) Lymphocytes # (Manual) Basophils # (Manual) PT INR APTT Heparin Anti-Xa Level POC ABG pH POC ABG pCO2 32.7 L POC ABG pO2 Sodium Potassium Chloride Carbon Dioxide BUN Creatinine Glucose POC Glucose 124 H 128 H Lactic Acid Calcium Phosphorus Magnesium Iron TIBC Ferritin AST ALT Total Creatine Kinase Total Protein Albumin Vitamin B12 Folate TSH Free T4 Urine WBC (Auto) Urine Creatinine Urine Chloride Urine Total Protein CSF VDRL Lymph Enumerat CD4/CD8 Absolute CD3 Count % CD4 Cells Absolute CD4 Count % CD8 Cells Absolute CD19 Count T.pallidum Ab (FTA-ABS) HIV-1 RNA PCR copies/ml HIV-1 RNA (PCR) log Miscellaneous Test 09/22/18 09/22/18 09/22/18 07:00 07:00 11:32 WBC 1.8 L* RBC 3.59 L Hgb 10.1 L Hct 30.8 L RDW Plt Count 126 L Seg Neuts % (Manual) Lymphocytes % (Manual) Monocytes % (Manual) Eosinophils % (Manual) Basophils % (Manual) Nucleated RBC % Seg Neutrophils # Man Abs Lymphs (Manual) Lymphocytes # (Manual) Basophils # (Manual) PT INR APTT Heparin Anti-Xa Level POC ABG pH POC ABG pCO2 POC ABG pO2 Sodium Potassium Chloride Carbon Dioxide BUN 27 H Creatinine 2.0 H Glucose 128 H POC Glucose 123 H Lactic Acid Calcium 6.9 L Phosphorus Magnesium Iron TIBC Ferritin AST ALT Total Creatine Kinase Total Protein Albumin Vitamin B12 Folate TSH Free T4 Urine WBC (Auto) Urine Creatinine Urine Chloride Urine Total Protein CSF VDRL Lymph Enumerat CD4/CD8 Absolute CD3 Count % CD4 Cells Absolute CD4 Count % CD8 Cells Absolute CD19 Count T.pallidum Ab (FTA-ABS) HIV-1 RNA PCR copies/ml HIV-1 RNA (PCR) log Miscellaneous Test 09/22/18 09/22/18 09/22/18 15:52 18:18 23:52 WBC RBC Hgb Hct RDW Plt Count Seg Neuts % (Manual) Lymphocytes % (Manual) Monocytes % (Manual) Eosinophils % (Manual) Basophils % (Manual) Nucleated RBC % Seg Neutrophils # Man Abs Lymphs (Manual) Lymphocytes # (Manual) Basophils # (Manual) PT INR APTT Heparin Anti-Xa Level POC ABG pH POC ABG pCO2 48.7 H POC ABG pO2 Sodium Potassium Chloride Carbon Dioxide BUN Creatinine Glucose POC Glucose 110 H 124 H Lactic Acid Calcium Phosphorus Magnesium Iron TIBC Ferritin AST ALT Total Creatine Kinase Total Protein Albumin Vitamin B12 Folate TSH Free T4 Urine WBC (Auto) Urine Creatinine Urine Chloride Urine Total Protein CSF VDRL Lymph Enumerat CD4/CD8 Absolute CD3 Count % CD4 Cells Absolute CD4 Count % CD8 Cells Absolute CD19 Count T.pallidum Ab (FTA-ABS) HIV-1 RNA PCR copies/ml HIV-1 RNA (PCR) log Miscellaneous Test 09/23/18 09/23/18 09/23/18 04:10 05:55 05:55 WBC RBC Hgb 10.0 L Hct 30.3 L RDW Plt Count 117 L Seg Neuts % (Manual) Lymphocytes % (Manual) Monocytes % (Manual) Eosinophils % (Manual) Basophils % (Manual) Nucleated RBC % Seg Neutrophils # Man Abs Lymphs (Manual) Lymphocytes # (Manual) Basophils # (Manual) PT INR APTT Heparin Anti-Xa Level 0.26 L POC ABG pH POC ABG pCO2 POC ABG pO2 144 H Sodium Potassium Chloride Carbon Dioxide BUN Creatinine Glucose POC Glucose Lactic Acid Calcium Phosphorus Magnesium Iron TIBC Ferritin AST ALT Total Creatine Kinase Total Protein Albumin Vitamin B12 Folate TSH Free T4 Urine WBC (Auto) Urine Creatinine Urine Chloride Urine Total Protein CSF VDRL Lymph Enumerat CD4/CD8 Absolute CD3 Count % CD4 Cells Absolute CD4 Count % CD8 Cells Absolute CD19 Count T.pallidum Ab (FTA-ABS) HIV-1 RNA PCR copies/ml HIV-1 RNA (PCR) log Miscellaneous Test 09/23/18 09/23/18 09/23/18 08:10 08:10 23:57 WBC 1.3 L* RBC 3.53 L Hgb 9.9 L Hct 30.0 L RDW Plt Count 119 L Seg Neuts % (Manual) Lymphocytes % (Manual) Monocytes % (Manual) Eosinophils % (Manual) Basophils % (Manual) Nucleated RBC % Seg Neutrophils # Man Abs Lymphs (Manual) Lymphocytes # (Manual) Basophils # (Manual) PT INR APTT Heparin Anti-Xa Level POC ABG pH POC ABG pCO2 POC ABG pO2 Sodium Potassium Chloride Carbon Dioxide BUN Creatinine Glucose 122 H POC Glucose 115 H Lactic Acid Calcium 6.9 L Phosphorus Magnesium Iron TIBC Ferritin AST ALT Total Creatine Kinase Total Protein Albumin Vitamin B12 Folate TSH Free T4 Urine WBC (Auto) Urine Creatinine Urine Chloride Urine Total Protein CSF VDRL Lymph Enumerat CD4/CD8 Absolute CD3 Count % CD4 Cells Absolute CD4 Count % CD8 Cells Absolute CD19 Count T.pallidum Ab (FTA-ABS) HIV-1 RNA PCR copies/ml HIV-1 RNA (PCR) log Miscellaneous Test 09/24/18 09/24/18 09/24/18 12:04 14:42 18:10 WBC RBC Hgb Hct RDW Plt Count Seg Neuts % (Manual) Lymphocytes % (Manual) Monocytes % (Manual) Eosinophils % (Manual) Basophils % (Manual) Nucleated RBC % Seg Neutrophils # Man Abs Lymphs (Manual) Lymphocytes # (Manual) Basophils # (Manual) PT INR APTT Heparin Anti-Xa Level 0.76 H POC ABG pH POC ABG pCO2 POC ABG pO2 Sodium Potassium Chloride Carbon Dioxide BUN Creatinine Glucose POC Glucose 111 H 138 H Lactic Acid Calcium Phosphorus Magnesium Iron TIBC Ferritin AST ALT Total Creatine Kinase Total Protein Albumin Vitamin B12 Folate TSH Free T4 Urine WBC (Auto) Urine Creatinine Urine Chloride Urine Total Protein CSF VDRL Lymph Enumerat CD4/CD8 Absolute CD3 Count % CD4 Cells Absolute CD4 Count % CD8 Cells Absolute CD19 Count T.pallidum Ab (FTA-ABS) HIV-1 RNA PCR copies/ml HIV-1 RNA (PCR) log Miscellaneous Test 09/25/18 09/25/18 09/25/18 03:45 04:24 14:20 WBC RBC Hgb 9.7 L Hct 29.4 L RDW Plt Count 104 L Seg Neuts % (Manual) Lymphocytes % (Manual) Monocytes % (Manual) Eosinophils % (Manual) Basophils % (Manual) Nucleated RBC % Seg Neutrophils # Man Abs Lymphs (Manual) Lymphocytes # (Manual) Basophils # (Manual) PT INR APTT Heparin Anti-Xa Level POC ABG pH 7.460 H POC ABG pCO2 32.9 L POC ABG pO2 Sodium Potassium 3.5 L Chloride 110.3 H Carbon Dioxide BUN Creatinine Glucose 105 H POC Glucose Lactic Acid Calcium 6.7 L Phosphorus Magnesium Iron TIBC Ferritin AST 633 H ALT 481 H Total Creatine Kinase Total Protein 4.8 L D Albumin 1.9 L Vitamin B12 Folate TSH Free T4 Urine WBC (Auto) Urine Creatinine Urine Chloride Urine Total Protein CSF VDRL Lymph Enumerat CD4/CD8 Absolute CD3 Count % CD4 Cells Absolute CD4 Count % CD8 Cells Absolute CD19 Count T.pallidum Ab (FTA-ABS) HIV-1 RNA PCR copies/ml HIV-1 RNA (PCR) log Miscellaneous Test 09/26/18 09/26/18 09/26/18 06:15 06:15 10:43 WBC 1.2 L* RBC 3.32 L Hgb 9.2 L Hct 28.6 L RDW Plt Count 97 L Seg Neuts % (Manual) 24.0 L Lymphocytes % (Manual) 43.0 H Monocytes % (Manual) 19.0 H Eosinophils % (Manual) 8.0 H Basophils % (Manual) 2.0 H Nucleated RBC % 3.0 H Seg Neutrophils # Man 0.0 L Abs Lymphs (Manual) Lymphocytes # (Manual) 0.0 L Basophils # (Manual) PT INR APTT Heparin Anti-Xa Level POC ABG pH 7.459 H POC ABG pCO2 POC ABG pO2 141 H Sodium Potassium Chloride 112.8 H Carbon Dioxide BUN Creatinine Glucose 110 H POC Glucose Lactic Acid Calcium 7.0 L Phosphorus 0.90 L* Magnesium Iron TIBC Ferritin AST 362 H ALT 360 H Total Creatine Kinase Total Protein 4.9 L Albumin 1.5 L Vitamin B12 Folate TSH Free T4 Urine WBC (Auto) Urine Creatinine Urine Chloride Urine Total Protein CSF VDRL Lymph Enumerat CD4/CD8 Absolute CD3 Count % CD4 Cells Absolute CD4 Count % CD8 Cells Absolute CD19 Count T.pallidum Ab (FTA-ABS) HIV-1 RNA PCR copies/ml HIV-1 RNA (PCR) log Miscellaneous Test 09/26/18 09/27/18 09/28/18 13:56 04:11 07:49 WBC RBC Hgb 9.1 L Hct 29.1 L RDW Plt Count 96 L Seg Neuts % (Manual) Lymphocytes % (Manual) Monocytes % (Manual) Eosinophils % (Manual) Basophils % (Manual) Nucleated RBC % Seg Neutrophils # Man Abs Lymphs (Manual) Lymphocytes # (Manual) Basophils # (Manual) PT INR APTT Heparin Anti-Xa Level POC ABG pH POC ABG pCO2 POC ABG pO2 Sodium 146 H Potassium Chloride 111.6 H Carbon Dioxide BUN Creatinine Glucose POC Glucose 135 H Lactic Acid Calcium 7.4 L Phosphorus Magnesium Iron TIBC Ferritin AST ALT Total Creatine Kinase Total Protein Albumin Vitamin B12 Folate TSH Free T4 Urine WBC (Auto) Urine Creatinine Urine Chloride Urine Total Protein CSF VDRL Lymph Enumerat CD4/CD8 Absolute CD3 Count % CD4 Cells Absolute CD4 Count % CD8 Cells Absolute CD19 Count T.pallidum Ab (FTA-ABS) HIV-1 RNA PCR copies/ml HIV-1 RNA (PCR) log Miscellaneous Test 09/28/18 09/29/18 09/29/18 10:43 05:00 05:00 WBC 1.2 L* RBC 3.13 L Hgb 8.6 L Hct 27.3 L RDW Plt Count 137 L Seg Neuts % (Manual) Lymphocytes % (Manual) Monocytes % (Manual) 16.0 H Eosinophils % (Manual) Basophils % (Manual) Nucleated RBC % 4.0 H Seg Neutrophils # Man 0.5 L Abs Lymphs (Manual) Lymphocytes # (Manual) 0.3 L Basophils # (Manual) PT INR APTT Heparin Anti-Xa Level POC ABG pH 7.300 L POC ABG pCO2 53.9 H POC ABG pO2 Sodium 147 H Potassium 3.4 L Chloride 114.5 H Carbon Dioxide BUN Creatinine Glucose POC Glucose Lactic Acid Calcium 7.7 L Phosphorus Magnesium Iron TIBC Ferritin AST 69 H ALT 110 H Total Creatine Kinase Total Protein 5.2 L Albumin 1.9 L Vitamin B12 Folate TSH Free T4 Urine WBC (Auto) Urine Creatinine Urine Chloride Urine Total Protein CSF VDRL Lymph Enumerat CD4/CD8 Absolute CD3 Count % CD4 Cells Absolute CD4 Count % CD8 Cells Absolute CD19 Count T.pallidum Ab (FTA-ABS) HIV-1 RNA PCR copies/ml HIV-1 RNA (PCR) log Miscellaneous Test 09/29/18 09/29/18 09/30/18 06:07 13:22 05:19 WBC 0.9 L* RBC 3.03 L Hgb 8.6 L Hct 25.9 L RDW Plt Count Seg Neuts % (Manual) Lymphocytes % (Manual) Monocytes % (Manual) Eosinophils % (Manual) Basophils % (Manual) Nucleated RBC % Seg Neutrophils # Man Abs Lymphs (Manual) Lymphocytes # (Manual) Basophils # (Manual) PT INR APTT Heparin Anti-Xa Level POC ABG pH POC ABG pCO2 46.9 H POC ABG pO2 Sodium Potassium Chloride Carbon Dioxide BUN Creatinine Glucose POC Glucose 109 H Lactic Acid Calcium Phosphorus Magnesium Iron TIBC Ferritin AST ALT Total Creatine Kinase Total Protein Albumin Vitamin B12 Folate TSH Free T4 Urine WBC (Auto) Urine Creatinine Urine Chloride Urine Total Protein CSF VDRL Lymph Enumerat CD4/CD8 Absolute CD3 Count % CD4 Cells Absolute CD4 Count % CD8 Cells Absolute CD19 Count T.pallidum Ab (FTA-ABS) HIV-1 RNA PCR copies/ml HIV-1 RNA (PCR) log Miscellaneous Test 09/30/18 09/30/18 09/30/18 05:19 11:14 23:28 WBC RBC Hgb Hct RDW Plt Count Seg Neuts % (Manual) Lymphocytes % (Manual) Monocytes % (Manual) Eosinophils % (Manual) Basophils % (Manual) Nucleated RBC % Seg Neutrophils # Man Abs Lymphs (Manual) Lymphocytes # (Manual) Basophils # (Manual) PT INR APTT Heparin Anti-Xa Level 0.72 H POC ABG pH POC ABG pCO2 46.6 H POC ABG pO2 Sodium 150 H Potassium Chloride 115.2 H Carbon Dioxide BUN Creatinine Glucose POC Glucose Lactic Acid Calcium 7.9 L Phosphorus Magnesium Iron TIBC Ferritin AST ALT Total Creatine Kinase Total Protein Albumin Vitamin B12 Folate TSH Free T4 Urine WBC (Auto) Urine Creatinine Urine Chloride Urine Total Protein CSF VDRL Lymph Enumerat CD4/CD8 Absolute CD3 Count % CD4 Cells Absolute CD4 Count % CD8 Cells Absolute CD19 Count T.pallidum Ab (FTA-ABS) HIV-1 RNA PCR copies/ml HIV-1 RNA (PCR) log Miscellaneous Test 10/01/18 10/01/18 10/02/18 04:55 04:55 07:15 WBC 0.9 L* 0.7 L* RBC 3.01 L 2.92 L Hgb 8.4 L 8.4 L Hct 26.0 L 24.9 L RDW Plt Count Seg Neuts % (Manual) Lymphocytes % (Manual) Monocytes % (Manual) Eosinophils % (Manual) Basophils % (Manual) Nucleated RBC % Seg Neutrophils # Man Abs Lymphs (Manual) Lymphocytes # (Manual) Basophils # (Manual) PT INR APTT Heparin Anti-Xa Level POC ABG pH POC ABG pCO2 POC ABG pO2 Sodium 147 H Potassium 3.4 L Chloride 113.1 H Carbon Dioxide BUN 22 H Creatinine Glucose POC Glucose Lactic Acid Calcium 7.3 L Phosphorus Magnesium Iron TIBC Ferritin AST ALT Total Creatine Kinase Total Protein Albumin Vitamin B12 Folate TSH Free T4 Urine WBC (Auto) Urine Creatinine Urine Chloride Urine Total Protein CSF VDRL Lymph Enumerat CD4/CD8 Absolute CD3 Count % CD4 Cells Absolute CD4 Count % CD8 Cells Absolute CD19 Count T.pallidum Ab (FTA-ABS) HIV-1 RNA PCR copies/ml HIV-1 RNA (PCR) log Miscellaneous Test 10/02/18 10/03/18 10/03/18 07:15 06:12 06:12 WBC 0.8 L* RBC 2.96 L Hgb 8.5 L Hct 25.9 L RDW 15.4 H Plt Count Seg Neuts % (Manual) Lymphocytes % (Manual) Monocytes % (Manual) Eosinophils % (Manual) Basophils % (Manual) Nucleated RBC % Seg Neutrophils # Man Abs Lymphs (Manual) Lymphocytes # (Manual) Basophils # (Manual) PT INR APTT Heparin Anti-Xa Level POC ABG pH POC ABG pCO2 POC ABG pO2 Sodium Potassium 3.4 L 3.4 L Chloride 108.3 H Carbon Dioxide BUN Creatinine Glucose POC Glucose Lactic Acid Calcium 7.6 L 7.4 L Phosphorus Magnesium Iron TIBC Ferritin AST ALT Total Creatine Kinase Total Protein Albumin Vitamin B12 Folate TSH Free T4 Urine WBC (Auto) Urine Creatinine Urine Chloride Urine Total Protein CSF VDRL Lymph Enumerat CD4/CD8 Absolute CD3 Count % CD4 Cells Absolute CD4 Count % CD8 Cells Absolute CD19 Count T.pallidum Ab (FTA-ABS) HIV-1 RNA PCR copies/ml HIV-1 RNA (PCR) log Miscellaneous Test 10/03/18 10/03/18 10/04/18 11:45 13:23 01:40 WBC RBC Hgb Hct RDW Plt Count Seg Neuts % (Manual) Lymphocytes % (Manual) Monocytes % (Manual) Eosinophils % (Manual) Basophils % (Manual) Nucleated RBC % Seg Neutrophils # Man Abs Lymphs (Manual) Lymphocytes # (Manual) Basophils # (Manual) PT INR APTT Heparin Anti-Xa Level 1.34 H 0.26 L POC ABG pH POC ABG pCO2 POC ABG pO2 Sodium Potassium Chloride Carbon Dioxide BUN Creatinine Glucose POC Glucose Lactic Acid Calcium Phosphorus Magnesium 1.40 L Iron TIBC Ferritin AST ALT Total Creatine Kinase Total Protein Albumin Vitamin B12 Folate TSH Free T4 Urine WBC (Auto) Urine Creatinine Urine Chloride Urine Total Protein CSF VDRL Lymph Enumerat CD4/CD8 Absolute CD3 Count % CD4 Cells Absolute CD4 Count % CD8 Cells Absolute CD19 Count T.pallidum Ab (FTA-ABS) HIV-1 RNA PCR copies/ml HIV-1 RNA (PCR) log Miscellaneous Test 10/04/18 10/04/18 10/06/18 04:45 04:45 09:40 WBC 0.8 L* RBC 3.11 L Hgb 9.0 L Hct 27.4 L RDW 15.4 H Plt Count Seg Neuts % (Manual) Lymphocytes % (Manual) Monocytes % (Manual) Eosinophils % (Manual) Basophils % (Manual) Nucleated RBC % Seg Neutrophils # Man Abs Lymphs (Manual) Lymphocytes # (Manual) Basophils # (Manual) PT INR APTT Heparin Anti-Xa Level POC ABG pH POC ABG pCO2 POC ABG pO2 Sodium Potassium Chloride Carbon Dioxide BUN Creatinine 0.7 L Glucose POC Glucose Lactic Acid Calcium 7.5 L Phosphorus Magnesium Iron 35 L TIBC 157 L Ferritin AST ALT Total Creatine Kinase Total Protein Albumin Vitamin B12 Folate TSH Free T4 Urine WBC (Auto) Urine Creatinine Urine Chloride Urine Total Protein CSF VDRL Lymph Enumerat CD4/CD8 Absolute CD3 Count % CD4 Cells Absolute CD4 Count % CD8 Cells Absolute CD19 Count T.pallidum Ab (FTA-ABS) HIV-1 RNA PCR copies/ml HIV-1 RNA (PCR) log Miscellaneous Test 10/06/18 10/06/18 10/07/18 09:40 09:40 04:20 WBC 1.1 L* RBC 3.07 L Hgb 9.1 L Hct 27.3 L RDW 20.3 H Plt Count Seg Neuts % (Manual) Lymphocytes % (Manual) Monocytes % (Manual) Eosinophils % (Manual) Basophils % (Manual) Nucleated RBC % Seg Neutrophils # Man 0.7 L Abs Lymphs (Manual) Lymphocytes # (Manual) 0.3 L Basophils # (Manual) PT INR APTT Heparin Anti-Xa Level POC ABG pH POC ABG pCO2 POC ABG pO2 Sodium Potassium Chloride Carbon Dioxide BUN Creatinine Glucose POC Glucose Lactic Acid Calcium Phosphorus Magnesium Iron TIBC Ferritin 1126.0 H AST ALT Total Creatine Kinase Total Protein Albumin Vitamin B12 Folate 6.71 L TSH Free T4 Urine WBC (Auto) Urine Creatinine Urine Chloride Urine Total Protein CSF VDRL Lymph Enumerat CD4/CD8 Absolute CD3 Count % CD4 Cells Absolute CD4 Count % CD8 Cells Absolute CD19 Count T.pallidum Ab (FTA-ABS) HIV-1 RNA PCR copies/ml HIV-1 RNA (PCR) log Miscellaneous Test 10/07/18 10/07/18 10/09/18 04:20 15:38 04:20 WBC 1.1 L* RBC 3.35 L Hgb 9.9 L Hct 30.1 L RDW 21.4 H Plt Count Seg Neuts % (Manual) 19.0 L Lymphocytes % (Manual) 42.0 H Monocytes % (Manual) 18.0 H Eosinophils % (Manual) 15.0 H Basophils % (Manual) 2.0 H Nucleated RBC % Seg Neutrophils # Man 0.2 L Abs Lymphs (Manual) Lymphocytes # (Manual) 0.5 L Basophils # (Manual) PT INR APTT Heparin Anti-Xa Level POC ABG pH 7.516 H POC ABG pCO2 32.1 L POC ABG pO2 Sodium Potassium Chloride Carbon Dioxide BUN Creatinine 0.7 L Glucose POC Glucose Lactic Acid Calcium 7.9 L Phosphorus Magnesium Iron TIBC Ferritin AST ALT Total Creatine Kinase Total Protein 5.5 L Albumin 2.2 L Vitamin B12 Folate TSH Free T4 Urine WBC (Auto) Urine Creatinine Urine Chloride Urine Total Protein CSF VDRL Lymph Enumerat CD4/CD8 Absolute CD3 Count % CD4 Cells Absolute CD4 Count % CD8 Cells Absolute CD19 Count T.pallidum Ab (FTA-ABS) HIV-1 RNA PCR copies/ml HIV-1 RNA (PCR) log Miscellaneous Test 10/09/18 10/09/18 10/09/18 04:20 11:48 17:31 WBC RBC Hgb Hct RDW Plt Count Seg Neuts % (Manual) Lymphocytes % (Manual) Monocytes % (Manual) Eosinophils % (Manual) Basophils % (Manual) Nucleated RBC % Seg Neutrophils # Man Abs Lymphs (Manual) Lymphocytes # (Manual) Basophils # (Manual) PT INR APTT Heparin Anti-Xa Level POC ABG pH POC ABG pCO2 POC ABG pO2 Sodium Potassium 5.4 H Chloride Carbon Dioxide 21 L BUN 55 H 72 H Creatinine 3.8 H D 4.5 H Glucose 118 H POC Glucose 124 H Lactic Acid Calcium 8.3 L 8.2 L Phosphorus Magnesium Iron TIBC Ferritin AST ALT Total Creatine Kinase Total Protein Albumin Vitamin B12 Folate TSH Free T4 Urine WBC (Auto) Urine Creatinine Urine Chloride Urine Total Protein CSF VDRL Lymph Enumerat CD4/CD8 Absolute CD3 Count % CD4 Cells Absolute CD4 Count % CD8 Cells Absolute CD19 Count T.pallidum Ab (FTA-ABS) HIV-1 RNA PCR copies/ml HIV-1 RNA (PCR) log Miscellaneous Test 10/10/18 10/10/18 10/10/18 08:09 08:35 10:54 WBC 1.1 L* RBC 3.16 L Hgb 9.6 L Hct 28.8 L RDW 21.2 H Plt Count Seg Neuts % (Manual) 27.0 L Lymphocytes % (Manual) Monocytes % (Manual) 9.0 H Eosinophils % (Manual) 18.0 H Basophils % (Manual) 12.0 H Nucleated RBC % Seg Neutrophils # Man 0.3 L Abs Lymphs (Manual) Lymphocytes # (Manual) 0.3 L Basophils # (Manual) PT 16.0 H INR 1.20 H APTT Heparin Anti-Xa Level POC ABG pH POC ABG pCO2 POC ABG pO2 Sodium Potassium 5.5 H Chloride Carbon Dioxide 20 L BUN 83 H Creatinine 5.5 H Glucose 119 H POC Glucose Lactic Acid Calcium Phosphorus Magnesium Iron TIBC Ferritin AST ALT Total Creatine Kinase Total Protein Albumin Vitamin B12 Folate TSH Free T4 Urine WBC (Auto) Urine Creatinine Urine Chloride Urine Total Protein CSF VDRL Lymph Enumerat CD4/CD8 Absolute CD3 Count % CD4 Cells Absolute CD4 Count % CD8 Cells Absolute CD19 Count T.pallidum Ab (FTA-ABS) HIV-1 RNA PCR copies/ml HIV-1 RNA (PCR) log Miscellaneous Test 10/10/18 10/10/18 10/11/18 Unknown Unknown 05:20 WBC 1.2 L* RBC 2.89 L Hgb 8.7 L Hct 26.0 L RDW 20.1 H Plt Count Seg Neuts % (Manual) Lymphocytes % (Manual) 8.0 L Monocytes % (Manual) 12.0 H Eosinophils % (Manual) 24.0 H Basophils % (Manual) 4.0 H Nucleated RBC % Seg Neutrophils # Man 0.6 L Abs Lymphs (Manual) Lymphocytes # (Manual) 0.1 L Basophils # (Manual) PT INR APTT Heparin Anti-Xa Level POC ABG pH POC ABG pCO2 POC ABG pO2 Sodium Potassium Chloride Carbon Dioxide BUN Creatinine Glucose POC Glucose Lactic Acid Calcium Phosphorus Magnesium Iron TIBC Ferritin AST ALT Total Creatine Kinase Total Protein Albumin Vitamin B12 Folate TSH Free T4 Urine WBC (Auto) Urine Creatinine Urine Chloride Urine Total Protein CSF VDRL Reactive 1:2 H Lymph Enumerat CD4/CD8 Absolute CD3 Count % CD4 Cells Absolute CD4 Count % CD8 Cells Absolute CD19 Count T.pallidum Ab (FTA-ABS) HIV-1 RNA PCR copies/ml HIV-1 RNA (PCR) log Miscellaneous Test Flexitest 1 H 10/11/18 10/11/18 10/11/18 05:20 05:40 05:40 WBC RBC Hgb Hct RDW Plt Count Seg Neuts % (Manual) Lymphocytes % (Manual) Monocytes % (Manual) Eosinophils % (Manual) Basophils % (Manual) Nucleated RBC % Seg Neutrophils # Man Abs Lymphs (Manual) Lymphocytes # (Manual) Basophils # (Manual) PT INR APTT Heparin Anti-Xa Level POC ABG pH POC ABG pCO2 POC ABG pO2 Sodium Potassium Chloride Carbon Dioxide 20 L BUN 102 H Creatinine 6.7 H Glucose POC Glucose Lactic Acid Calcium 8.3 L Phosphorus Magnesium Iron TIBC Ferritin AST ALT Total Creatine Kinase Total Protein Albumin Vitamin B12 Folate TSH Free T4 Urine WBC (Auto) 8.0 H Urine Creatinine 57.5 H Urine Chloride 35.1 L Urine Total Protein 44 H CSF VDRL Lymph Enumerat CD4/CD8 Absolute CD3 Count % CD4 Cells Absolute CD4 Count % CD8 Cells Absolute CD19 Count T.pallidum Ab (FTA-ABS) HIV-1 RNA PCR copies/ml HIV-1 RNA (PCR) log Miscellaneous Test 10/11/18 10/12/18 10/12/18 16:41 03:30 03:30 WBC 0.9 L* RBC 2.78 L Hgb 8.3 L Hct 25.1 L RDW 19.9 H Plt Count Seg Neuts % (Manual) Lymphocytes % (Manual) Monocytes % (Manual) Eosinophils % (Manual) 20.0 H Basophils % (Manual) Nucleated RBC % Seg Neutrophils # Man 0.5 L Abs Lymphs (Manual) Lymphocytes # (Manual) 0.3 L Basophils # (Manual) PT INR APTT Heparin Anti-Xa Level POC ABG pH 7.318 L POC ABG pCO2 POC ABG pO2 Sodium Potassium Chloride Carbon Dioxide 18 L BUN 111 H Creatinine 7.3 H Glucose POC Glucose Lactic Acid Calcium 7.9 L Phosphorus Magnesium Iron TIBC Ferritin AST ALT Total Creatine Kinase Total Protein Albumin Vitamin B12 Folate TSH Free T4 Urine WBC (Auto) Urine Creatinine Urine Chloride Urine Total Protein CSF VDRL Lymph Enumerat CD4/CD8 Absolute CD3 Count % CD4 Cells Absolute CD4 Count % CD8 Cells Absolute CD19 Count T.pallidum Ab (FTA-ABS) HIV-1 RNA PCR copies/ml HIV-1 RNA (PCR) log Miscellaneous Test 10/12/18 10/13/18 10/13/18 13:30 04:00 04:05 WBC 1.0 L* RBC 2.68 L Hgb 8.1 L Hct 24.3 L RDW 19.7 H Plt Count Seg Neuts % (Manual) 36.7 L Lymphocytes % (Manual) Monocytes % (Manual) Eosinophils % (Manual) 16.7 H Basophils % (Manual) 16.7 H Nucleated RBC % Seg Neutrophils # Man 0.4 L Abs Lymphs (Manual) Lymphocytes # (Manual) 0.2 L Basophils # (Manual) 0.2 H PT INR APTT Heparin Anti-Xa Level POC ABG pH 7.336 L POC ABG pCO2 31.5 L POC ABG pO2 122 H Sodium Potassium Chloride Carbon Dioxide 17 L BUN 118 H Creatinine 7.8 H Glucose 102 H POC Glucose Lactic Acid Calcium 7.8 L Phosphorus Magnesium Iron TIBC Ferritin AST ALT Total Creatine Kinase Total Protein Albumin Vitamin B12 Folate TSH Free T4 Urine WBC (Auto) Urine Creatinine Urine Chloride Urine Total Protein CSF VDRL Lymph Enumerat CD4/CD8 Absolute CD3 Count % CD4 Cells Absolute CD4 Count % CD8 Cells Absolute CD19 Count T.pallidum Ab (FTA-ABS) HIV-1 RNA PCR copies/ml HIV-1 RNA (PCR) log Miscellaneous Test 10/13/18 10/14/18 10/14/18 18:44 00:01 05:20 WBC RBC Hgb Hct RDW Plt Count Seg Neuts % (Manual) Lymphocytes % (Manual) Monocytes % (Manual) Eosinophils % (Manual) Basophils % (Manual) Nucleated RBC % Seg Neutrophils # Man Abs Lymphs (Manual) Lymphocytes # (Manual) Basophils # (Manual) PT INR APTT Heparin Anti-Xa Level POC ABG pH POC ABG pCO2 POC ABG pO2 Sodium Potassium Chloride Carbon Dioxide BUN Creatinine Glucose POC Glucose 141 H 134 H 171 H Lactic Acid Calcium Phosphorus Magnesium Iron TIBC Ferritin AST ALT Total Creatine Kinase Total Protein Albumin Vitamin B12 Folate TSH Free T4 Urine WBC (Auto) Urine Creatinine Urine Chloride Urine Total Protein CSF VDRL Lymph Enumerat CD4/CD8 Absolute CD3 Count % CD4 Cells Absolute CD4 Count % CD8 Cells Absolute CD19 Count T.pallidum Ab (FTA-ABS) HIV-1 RNA PCR copies/ml HIV-1 RNA (PCR) log Miscellaneous Test 10/14/18 10/14/18 10/14/18 09:39 09:40 11:37 WBC RBC Hgb Hct RDW Plt Count Seg Neuts % (Manual) Lymphocytes % (Manual) Monocytes % (Manual) Eosinophils % (Manual) Basophils % (Manual) Nucleated RBC % Seg Neutrophils # Man Abs Lymphs (Manual) Lymphocytes # (Manual) Basophils # (Manual) PT INR APTT Heparin Anti-Xa Level POC ABG pH POC ABG pCO2 POC ABG pO2 Sodium 147 H Potassium 3.4 L Chloride 108.1 H Carbon Dioxide 16 L BUN 124 H Creatinine 6.7 H Glucose 144 H POC Glucose 164 H Lactic Acid Calcium 7.8 L Phosphorus 8.50 H Magnesium Iron TIBC Ferritin AST ALT Total Creatine Kinase Total Protein Albumin Vitamin B12 Folate TSH Free T4 Urine WBC (Auto) Urine Creatinine Urine Chloride Urine Total Protein CSF VDRL Lymph Enumerat CD4/CD8 Absolute CD3 Count % CD4 Cells Absolute CD4 Count % CD8 Cells Absolute CD19 Count T.pallidum Ab (FTA-ABS) HIV-1 RNA PCR copies/ml HIV-1 RNA (PCR) log Miscellaneous Test 10/14/18 10/14/18 10/15/18 Unknown Unknown 00:05 WBC 0.5 L* RBC 2.80 L Hgb 8.2 L Hct 25.2 L RDW 19.7 H Plt Count Seg Neuts % (Manual) Lymphocytes % (Manual) 10.0 L Monocytes % (Manual) Eosinophils % (Manual) 10.0 H Basophils % (Manual) Nucleated RBC % Seg Neutrophils # Man 0.4 L Abs Lymphs (Manual) Lymphocytes # (Manual) 0.1 L Basophils # (Manual) PT INR APTT Heparin Anti-Xa Level POC ABG pH POC ABG pCO2 POC ABG pO2 Sodium Potassium Chloride Carbon Dioxide 13 L BUN 126 H Creatinine 7.7 H Glucose 153 H POC Glucose 190 H Lactic Acid Calcium 7.8 L Phosphorus Magnesium Iron TIBC Ferritin AST ALT Total Creatine Kinase Total Protein Albumin Vitamin B12 Folate TSH Free T4 Urine WBC (Auto) Urine Creatinine Urine Chloride Urine Total Protein CSF VDRL Lymph Enumerat CD4/CD8 Absolute CD3 Count % CD4 Cells Absolute CD4 Count % CD8 Cells Absolute CD19 Count T.pallidum Ab (FTA-ABS) HIV-1 RNA PCR copies/ml HIV-1 RNA (PCR) log Miscellaneous Test 10/15/18 10/15/18 10/15/18 04:15 04:15 05:03 WBC 0.8 L* RBC 2.73 L Hgb 8.2 L Hct 24.4 L RDW 18.8 H Plt Count Seg Neuts % (Manual) Lymphocytes % (Manual) Monocytes % (Manual) Eosinophils % (Manual) Basophils % (Manual) Nucleated RBC % Seg Neutrophils # Man Abs Lymphs (Manual) Lymphocytes # (Manual) Basophils # (Manual) PT INR APTT Heparin Anti-Xa Level POC ABG pH POC ABG pCO2 POC ABG pO2 Sodium 148 H Potassium 2.9 L* Chloride 108.5 H Carbon Dioxide 17 L BUN 127 H Creatinine 6.1 H Glucose 154 H POC Glucose 170 H Lactic Acid Calcium 7.7 L Phosphorus Magnesium Iron TIBC Ferritin AST ALT Total Creatine Kinase Total Protein 6.0 L Albumin 2.3 L Vitamin B12 Folate TSH Free T4 Urine WBC (Auto) Urine Creatinine Urine Chloride Urine Total Protein CSF VDRL Lymph Enumerat CD4/CD8 Absolute CD3 Count % CD4 Cells Absolute CD4 Count % CD8 Cells Absolute CD19 Count T.pallidum Ab (FTA-ABS) HIV-1 RNA PCR copies/ml HIV-1 RNA (PCR) log Miscellaneous Test 10/15/18 10/15/18 10/15/18 12:23 17:42 17:49 WBC RBC Hgb Hct RDW Plt Count Seg Neuts % (Manual) Lymphocytes % (Manual) Monocytes % (Manual) Eosinophils % (Manual) Basophils % (Manual) Nucleated RBC % Seg Neutrophils # Man Abs Lymphs (Manual) Lymphocytes # (Manual) Basophils # (Manual) PT INR APTT Heparin Anti-Xa Level POC ABG pH POC ABG pCO2 POC ABG pO2 Sodium 146 H Potassium 3.0 L Chloride 109.4 H Carbon Dioxide 16 L BUN 124 H Creatinine 5.6 H Glucose 162 H POC Glucose 180 H 173 H Lactic Acid Calcium 7.5 L Phosphorus Magnesium Iron TIBC Ferritin AST ALT Total Creatine Kinase Total Protein Albumin Vitamin B12 Folate TSH Free T4 Urine WBC (Auto) Urine Creatinine Urine Chloride Urine Total Protein CSF VDRL Lymph Enumerat CD4/CD8 Absolute CD3 Count % CD4 Cells Absolute CD4 Count % CD8 Cells Absolute CD19 Count T.pallidum Ab (FTA-ABS) HIV-1 RNA PCR copies/ml HIV-1 RNA (PCR) log Miscellaneous Test 10/15/18 10/16/18 10/16/18 23:56 05:37 07:50 WBC 1.1 L* RBC 2.70 L Hgb 8.0 L Hct 24.4 L RDW 18.9 H Plt Count Seg Neuts % (Manual) Lymphocytes % (Manual) Monocytes % (Manual) 8.0 H Eosinophils % (Manual) Basophils % (Manual) Nucleated RBC % Seg Neutrophils # Man 0.7 L Abs Lymphs (Manual) Lymphocytes # (Manual) 0.2 L Basophils # (Manual) PT INR APTT Heparin Anti-Xa Level POC ABG pH POC ABG pCO2 POC ABG pO2 Sodium Potassium Chloride Carbon Dioxide BUN Creatinine Glucose POC Glucose 164 H 152 H Lactic Acid Calcium Phosphorus Magnesium Iron TIBC Ferritin AST ALT Total Creatine Kinase Total Protein Albumin Vitamin B12 Folate TSH Free T4 Urine WBC (Auto) Urine Creatinine Urine Chloride Urine Total Protein CSF VDRL Lymph Enumerat CD4/CD8 Absolute CD3 Count % CD4 Cells Absolute CD4 Count % CD8 Cells Absolute CD19 Count T.pallidum Ab (FTA-ABS) HIV-1 RNA PCR copies/ml HIV-1 RNA (PCR) log Miscellaneous Test 10/16/18 07:50 WBC RBC Hgb Hct RDW Plt Count Seg Neuts % (Manual) Lymphocytes % (Manual) Monocytes % (Manual) Eosinophils % (Manual) Basophils % (Manual) Nucleated RBC % Seg Neutrophils # Man Abs Lymphs (Manual) Lymphocytes # (Manual) Basophils # (Manual) PT INR APTT Heparin Anti-Xa Level POC ABG pH POC ABG pCO2 POC ABG pO2 Sodium 147 H Potassium 3.0 L Chloride Carbon Dioxide 15 L BUN 143 H Creatinine 6.2 H Glucose 182 H POC Glucose Lactic Acid Calcium 8.1 L Phosphorus Magnesium Iron TIBC Ferritin AST ALT Total Creatine Kinase Total Protein Albumin Vitamin B12 Folate TSH Free T4 Urine WBC (Auto) Urine Creatinine Urine Chloride Urine Total Protein CSF VDRL Lymph Enumerat CD4/CD8 Absolute CD3 Count % CD4 Cells Absolute CD4 Count % CD8 Cells Absolute CD19 Count T.pallidum Ab (FTA-ABS) HIV-1 RNA PCR copies/ml HIV-1 RNA (PCR) log Miscellaneous Test Chest x-ray: image reviewed Allied health notes reviewed: nursing
[2018-10-16] MEDS ORDERED: SUBLIMAZE IV ONE (12:00)
--- NOTE | 2018-10-16 12:13 | Operative Report ---
Operative Report Operative Report: Operative note: Date: 10/16/2018 Preoperative diagnosis: Renal failure Postoperative diagnosis: Same. Operation: Right femoral Vas-Cath insertion Surgeon: Leta Bauman. Asst.: None Anesthesia: Local EBL: Minimal Findings: None Indications: 33-year-old male with HIV/AIDS, neurosyphilis, Giardia diarrhea developed renal failure. To start hemodialysis Vas-Cath placement was required. All risks, benefits and alternatives of the procedure were discussed with patient's sister. She agreed. Operative details: Patient was prepped and draped right groin in a sterile fashion. Right femoral vein was accessed under ultrasound guidance with micropuncture needle and exchanged for micropuncture sheath. Wire was advanced slowly without any resistance. Skin incision was made with 11 blade and serially dilated. Subsequent insertion of Vas-Cath catheter 30 cm in length. Ports were checked for good flow and flushed with saline. Catheter was secured in place with 3-0 nylon stitches and sterile dressing applied. He tolerated the procedure well.
--- NOTE | 2018-10-16 12:39 | Progress Note ---
Assessment and Plan Assessment and plan: The high probability of a clinically significant, sudden or life threatening deterioration of the [] system(s) required my full and direct attention, intervention and personal management. The aggregate critical care time was [] minutes. This time is in addition to time spent performing reported procedures but includes the following: [x] Data Review and interpretation [x] Patient assessment and monitoring of vital signs [x] Documentation [x] Medication orders and management - Patient Problems (1) Acute kidney failure with tubular necrosis Current Visit: Yes Status: Acute Plan to address problem: patient would acute renal failure. Recently received AV graph today. We'll start hemodialysis per nephrology. Patient potassium stable with three. Renal function has worsened in the past 24 hours. (2) Acute respiratory failure with hypoxia Current Visit: Yes Status: Acute Plan to address problem: patient remains intubated. Most likely etiology pneumonia. Bronchodilators steroids we as appropriate. Will be very difficult given the level of encephalopathy would neurosyphilis. Family considering peg/tracheostomy. Overall prognosis remains extremely poor. (3) Diarrhea Current Visit: Yes Status: Acute Plan to address problem: Giardia diarrhea has resolved. (4) Encephalopathy Current Visit: Yes Status: Acute Plan to address problem: Patient remains encephalopathic most likely neurosyphilis versus anoxia. Patient on day 2 penicillin. (5) Hypokalemia Current Visit: Yes Status: Acute Plan to address problem: Focal anemia to be corrected today. (6) Neurosyphilis Current Visit: Yes Status: Acute Plan to address problem: patient remains encephalopathic currently being treated. ID following. (7) Thrombocytopenia Current Visit: Yes Status: Acute Plan to address problem: Teens to improve. Locally. (8) AIDS Current Visit: Yes Status: Suspected Plan to address problem: Patientwith a defining illness of thrush, PCP pneumonia Started HARRT therapy. (9) Atrial fibrillation and flutter Current Visit: Yes Status: Resolved Plan to address problem: patient currently on amiodarone. Rate appears to be stable at this particular time. Rhythm has been stable for the most part as well. (10) Encephalopathy Current Visit: Yes Status: Acute (11) DVT prophylaxis Current Visit: No Status: Acute (12) Neutropenia Current Visit: Yes Status: Acute Plan to address problem: small increase in white cell count to 1.1. (13) Malnutrition Current Visit: Yes Status: Acute Plan to address problem: severe protein deficiency malnutrition treated with NG tube feedings (14) Decubitus ulcers Current Visit: Yes Status: Acute Plan to address problem: at this point weight loss and decubitus ulcers appeared to be unavoidable at this time. Patient intubated, incontinence sheer forcing severe protein deficie ncy malnutrition. Limited blood supply and septic with decreased immune system. History Interval history: 33-year-old male with AIDS neurosyphilis Giardia diarrhea and renal failure. Patient remains intubated and encephalopathic. Hospital course over p.m. u neventful except for development of new wounds over past two days. Patient condition has progressively gotten worse. Minimal response. All courses and concerns answered to family satisfaction. Hospitalist Physical - Constitutional Vitals: Temp Pulse Resp BP Pulse Ox 96.9 F L 84 14 132/86 100 10/16/18 11:46 10/16/18 12:00 10/16/18 12:00 10/16/18 11:46 10/16/18 12:00 General appearance: Present: mild distress, other (orally intubated, minimal response--right side spontaneous movement) - EENT Eyes: Present: PERRL, EOM intact ENT: poor dentition, thrush - Respiratory Respiratory: bilateral: diminished, rhonchi - Cardiovascular Rhythm: regular - Extremities Extremity abnormal: edema, other (ischemia decubitus ulcers buttock heal) - Abdominal General gastrointestinal: soft, non-distended, hypoactive bowel sounds - Psychiatric Psychiatric: other (encephalopathy) Results - Labs CBC & Chem 7: 10/16/18 07:50 10/16/18 07:50 Labs: Laboratory Last Values WBC 1.1 K/mm3 (4.5-11.0) L* 10/16/18 07:50 RBC 2.70 M/mm3 (3.65-5.03) L 10/16/18 07:50 Hgb 8.0 gm/dl (11.8-15.2) L 10/16/18 07:50 Hct 24.4 % (35.5-45.6) L 10/16/18 07:50 MCV 90 fl (84-94) 10/16/18 07:50 MCH 30 pg (28-32) 10/16/18 07:50 MCHC 33 % (32-34) 10/16/18 07:50 RDW 18.9 % (13.2-15.2) H 10/16/18 07:50 Plt Count 208 K/mm3 (140-440) 10/16/18 07:50 [place] % (Auto) Acid Cleaner 09/29/18 05:00 Eos % (Auto) Acid Cleaner 10/13/18 04:05 Baso % (Auto) Acid Cleaner 10/13/18 04:05 Add Manual Diff Complete 10/16/18 07:50 Total Counted 50 10/16/18 07:50 Seg Neutrophils % Acid Cleaner 10/16/18 07:50 Seg Neuts % (Manual) 60.0 % (40.0-70.0) 10/16/18 07:50 Band Neutrophils % 18.0 % 10/16/18 07:50 Lymphocytes % (Manual) 14.0 % (13.4-35.0) 10/16/18 07:50 Reactive Lymphs % (Man) 0 % 10/16/18 07:50 Monocytes % (Manual) 8.0 % (0.0-7.3) H 10/16/18 07:50 Eosinophils % (Manual) 0 % (0.0-4.3) 10/16/18 07:50 Basophils % (Manual) 0 % (0.0-1.8) 10/16/18 07:50 Metamyelocytes % 0 % 10/16/18 07:50 Myelocytes % 0 % 10/16/18 07:50 Promyelocytes % 0 % 10/16/18 07:50 Blast Cells % 0 % 10/16/18 07:50 Nucleated RBC % Not Reportable 10/16/18 07:50 Seg Neutrophils # Man 0.7 K/mm3 (1.8-7.7) L 10/16/18 07:50 Band Neutrophils # 0.2 K/mm3 10/16/18 07:50 Abs Lymphs (Manual) 309 cells/uL (850-3900) L 09/13/18 12:29 Lymphocytes # (Manual) 0.2 K/mm3 (1.2-5.4) L 10/16/18 07:50 Abs React Lymphs (Man) 0.0 K/mm3 10/16/18 07:50 Monocytes # (Manual) 0.1 K/mm3 (0.0-0.8) 10/16/18 07:50 Eosinophils # (Manual) 0.0 K/mm3 (0.0-0.4) 10/16/18 07:50 Basophils # (Manual) 0.0 K/mm3 (0.0-0.1) 10/16/18 07:50 Metamyelocytes # 0.0 K/mm3 10/16/18 07:50 Myelocytes # 0.0 K/mm3 10/16/18 07:50 Promyelocytes # 0.0 K/mm3 10/16/18 07:50 Blast Cells # 0.0 K/mm3 10/16/18 07:50 WBC Morphology Not Reportable 10/16/18 07:50 Hypersegmented Neuts Not Reportable 10/16/18 07:50 Hyposegmented Neuts Not Reportable 10/16/18 07:50 Hypogranular Neuts Not Reportable 10/16/18 07:50 Smudge Cells Not Reportable 10/16/18 07:50 Toxic Granulation Not Reportable 10/16/18 07:50 Toxic Vacuolation Not Reportable 10/16/18 07:50 Dohle Bodies Not Reportable 10/16/18 07:50 Pelger-Huet Anomaly Not Reportable 10/16/18 07:50 Giovanna Rods Not Reportable 10/16/18 07:50 Platelet Estimate Not Reportable 10/16/18 07:50 Clumped Platelets Not Reportable 10/16/18 07:50 Plt Clumps, EDTA Not Reportable 10/16/18 07:50 Large Platelets Not Reportable 10/16/18 07:50 Giant Platelets Not Reportable 10/16/18 07:50 Platelet Satelliting Not Reportable 10/16/18 07:50 Plt Morphology Comment Not Reportable 10/16/18 07:50 RBC Morphology Not Reportable 10/16/18 07:50 Dimorphic RBCs Not Reportable 10/16/18 07:50 Polychromasia Not Reportable 10/16/18 07:50 Hypochromasia Not Reportable 10/16/18 07:50 Poikilocytosis 1+ 10/16/18 07:50 Anisocytosis 1+ 10/16/18 07:50 Microcytosis Not Reportable 10/16/18 07:50 Macrocytosis Not Reportable 10/16/18 07:50 Spherocytes Not Reportable 10/16/18 07:50 Pappenheimer Bodies Not Reportable 10/16/18 07:50 Sickle Cells Not Reportable 10/16/18 07:50 Target Cells Not Reportable 10/16/18 07:50 Tear Drop Cells Not Reportable 10/16/18 07:50 Ovalocytes Not Reportable 10/16/18 07:50 Stomatocytes 1+ 09/29/18 05:00 Helmet Cells Not Reportable 10/16/18 07:50 [place] Bodies Not Reportable 10/16/18 07:50 [place] Rings Not Reportable 10/16/18 07:50 [place] Cells Not Reportable 10/16/18 07:50 Bite Cells Not Reportable 10/16/18 07:50 Crenated Cell Not Reportable 10/16/18 07:50 Elliptocytes Not Reportable 10/16/18 07:50 Acanthocytes (Spur) Not Reportable 10/16/18 07:50 Rouleaux Not Reportable 10/16/18 07:50 Hemoglobin C Crystals Not Reportable 10/16/18 07:50 Schistocytes Not Reportable 10/16/18 07:50 Malaria parasites Not Reportable 10/16/18 07:50 Kieran Bodies Not Reportable 10/16/18 07:50 Hem Pathologist Commnt No 10/16/18 07:50 PT 16.0 Sec. (12.2-14.9) H 10/10/18 08:09 INR 1.20 (0.87-1.13) H 10/10/18 08:09 APTT 40.9 Sec. (24.2-36.6) H 09/21/18 15:00 Heparin Anti-Xa Level 0.35 U.I./ml (0.3-0.7) 10/05/18 10:19 POC ABG pH 7.336 (7.35-7.45) L 10/12/18 13:30 POC ABG pCO2 31.5 (35-45) L 10/12/18 13:30 POC ABG pO2 122 (80-105) H 10/12/18 13:30 POC ABG HCO3 16.8 10/12/18 13:30 POC ABG Total CO2 18 10/12/18 13:30 POC ABG O2 Sat 99 10/12/18 13:30 POC ABG Base Excess -9 10/12/18 13:30 FiO2 25 % 10/12/18 13:30 Sodium 147 mmol/L (137-145) H 10/16/18 07:50 Potassium 3.0 mmol/L (3.6-5.0) L 10/16/18 07:50 Chloride 106.9 mmol/L (98-107) 10/16/18 07:50 Carbon Dioxide 15 mmol/L (22-30) L 10/16/18 07:50 Anion Gap 28 mmol/L 10/16/18 07:50 BUN 143 mg/dL (9-20) H 10/16/18 07:50 Creatinine 6.2 mg/dL (0.8-1.5) H 10/16/18 07:50 Estimated GFR 13 ml/min 10/16/18 07:50 BUN/Creatinine Ratio 23 % 10/16/18 07:50 Glucose 182 mg/dL (75-100) H 10/16/18 07:50 POC Glucose 122 (70-105) H 10/16/18 12:35 Lactic Acid 0.90 mmol/L (0.7-2.0) 09/11/18 20:17 Calcium 8.1 mg/dL (8.4-10.2) L 10/16/18 07:50 Phosphorus 8.50 mg/dL (2.5-4.5) H 10/14/18 09:40 Magnesium 2.10 mg/dL (1.7-2.3) 10/14/18 09:40 Iron 35 ug/dL (49-181) L 10/06/18 09:40 TIBC 157 mcg/dL (250-450) L 10/06/18 09:40 Ferritin 1126.0 ng/mL (13.0-400.0) H 10/06/18 09:40 Total Bilirubin < 0.20 mg/dL (0.1-1.2) 10/15/18 04:15 Direct Bilirubin < 0.2 mg/dL (0-0.2) 09/13/18 07:31 AST 36 units/L (5-40) 10/15/18 04:15 ALT 32 units/L (7-56) 10/15/18 04:15 Alkaline Phosphatase 66 units/L (35-129) 10/15/18 04:15 Ammonia 27.0 umol/L (25-60) 10/03/18 13:23 Total Creatine Kinase 113 units/L (55-170) 10/11/18 05:20 CK-MB (CK-2) 2.6 ng/mL (0.0-4.0) 10/11/18 05:20 CK-MB (CK-2) Rel Index 0.5 (0-4) 09/21/18 04:25 NT-Pro-B Natriuret Pep 145.9 pg/mL (0-450) 09/18/18 16:07 Total Protein 6.0 g/dL (6.3-8.2) L 10/15/18 04:15 Albumin 2.3 g/dL (3.9-5) L 10/15/18 04:15 Albumin/Globulin Ratio 0.6 % 10/15/18 04:15 Vitamin B12 934.5 pg/mL (211-911) H 09/16/18 11:41 Folate 6.71 ng/mL (7.3-26.0) L 10/06/18 09:40 TSH 5.190 mlU/mL (0.270-4.200) H 09/18/18 12:46 Free T4 0.75 ng/dL (0.76-1.46) L 09/18/18 12:46 Urine Color Yellow (Yellow) 10/11/18 05:40 Urine Turbidity Slightly-cloudy (Clear) 10/11/18 05:40 Urine pH 5.0 (5.0-7.0) 10/11/18 05:40 Ur Specific [place] 1.012 (1.003-1.030) 10/11/18 05:40 Urine Protein 30 mg/dl mg/dL (Negative) 10/11/18 05:40 Urine Glucose (UA) Neg mg/dL (Negative) 10/11/18 05:40 Urine Ketones Neg mg/dL (Negative) 10/11/18 05:40 Urine Blood Mod (Negative) 10/11/18 05:40 Urine Nitrite Neg (Negative) 10/11/18 05:40 Urine Bilirubin Neg (Negative) 10/11/18 05:40 Urine Urobilinogen < 2.0 mg/dL (<2.0) 10/11/18 05:40 Ur Leukocyte Esterase Neg (Negative) 10/11/18 05:40 Urine WBC (Auto) 8.0 /HPF (0.0-6.0) H 10/11/18 05:40 Urine RBC (Auto) 45.0 /HPF (0.0-6.0) 10/11/18 05:40 U Epithel Cells (Auto) 2.0 /HPF (0-13.0) 10/11/18 05:40 Urine Bacteria (Auto) 1+ /HPF (Negative) 10/11/18 05:40 Urine Mucus Few /HPF 10/11/18 05:40 Urine Creatinine 57.5 mg/dL (0.1-20.0) H 10/11/18 05:40 Protein/Creatinin Ratio 0.77 10/11/18 05:40 Urine Sodium 70 mmol/L 10/11/18 05:40 Urine Chloride 35.1 mmolL (110-250) L 10/11/18 05:40 Urine Total Protein 44 mg/dL (5-11.8) H 10/11/18 05:40 CSF Appearance Bloody 10/10/18 Unknown CSF Color Red 10/10/18 Unknown CSF WBC 10 /mm3 (1-10) 10/10/18 Unknown CSF RBC 89664 /mm3 (0-0) 10/10/18 Unknown CSF Seg Neutrophils 14.0 % (0-6) 10/10/18 Unknown CSF Lymphocytes % 44.0 % (40-80) 10/10/18 Unknown CSF Reactive Lymphs 0 % 10/10/18 Unknown CSF Monocytes % 38.0 % (15-45) 10/10/18 Unknown CSF Eosinophils % 4.0 % 10/10/18 Unknown CSF Basophils 0 % 10/10/18 Unknown CSF Pathologist Review C 10/10/18 Unknown CSF Glucose 47 mg/dL 10/10/18 Unknown CSF Total Protein 84 mg/dL 10/10/18 Unknown CSF VDRL Reactive 1:2 (Nonreactive) H 10/10/18 Unknown Vancomycin Trough 14.3 ug/mL (5.0-20.0) 09/25/18 14:45 Random Vancomycin 10.7 ug/mL (0-40.0) 10/12/18 03:30 Urine Opiates Screen Presumptive negative 09/17/18 15:52 Urine Methadone Screen Presumptive negative 09/17/18 15:52 Ur Barbiturates Screen Presumptive negative 09/17/18 15:52 Ur Phencyclidine Scrn Presumptive negative 09/17/18 15:52 Ur Amphetamines Screen Presumptive negative 09/17/18 15:52 U Benzodiazepines Scrn Presumptive negative 09/17/18 15:52 Urine Cocaine Screen Presumptive negative 09/17/18 15:52 U Marijuana (THC) Screen Presumptive negative 09/17/18 15:52 Drugs of Abuse Note Disclamer 09/17/18 15:52 Complement C3 184 mg/dL (82-185) 10/12/18 09:46 Complement C4 45 mg/dL (15-53) 10/12/18 09:46 Lymph Enumerat CD4/CD8 0.01 (0.86-5.00) L 09/13/18 12:29 % CD3 Cells 71 % (57-85) 09/13/18 12:29 Absolute CD3 Count 220 cells/uL (840-3060) L 09/13/18 12:29 % CD4 Cells 1 % (30-61) L 09/13/18 12:29 Absolute CD4 Count 4 cells/uL (490-1740) L 09/13/18 12:29 % CD8 Cells 70 % (12-42) H 09/13/18 12:29 Absolute CD8 Count 216 cells/uL (180-1170) 09/13/18 12:29 % CD19 Cells 17 % (6-29) 09/13/18 12:29 Absolute CD19 Count 54 cells/uL (110-660) L 09/13/18 12:29 RPR Titer 1:16 09/13/18 12:29 RPR Reactive (Nonreactive) 09/13/18 12:29 T.pallidum Ab (FTA-ABS) Reactive (Nonreactive) H 09/14/18 16:34 C. difficile Toxin A&B Negative (Negative) 09/12/18 05:30 CMV DNA PCR log copra processor/mL See scanned results 10/03/18 06:12 Hepatitis A IgM Ab Non-reactive (NonReactive) 09/13/18 12:29 Hep Bs Antigen Non-reactive (Negative) 09/13/18 12:29 Hep B Core IgM Ab Non-reactive (NonReactive) 09/13/18 12:29 Hepatitis C Antibody Non-reactive (NonReactive) 09/13/18 12:29 HIV-1 Antibody See scanned result 09/11/18 19:14 HIV-1 RNA PCR copies/ml 67206 Copies/mL H 09/13/18 12:29 HIV-1 RNA (PCR) log 4.71 Log cps/mL H 09/13/18 12:29 HIV-2 Ab (Immunoblot) See scanned result 09/11/18 19:14 HIV 1&2 Antibody Rapid Reactive (Non React) 09/11/18 19:14 HIV P24 Antigen Non react (Non React) 09/11/18 19:14 Influenza A (Rapid) Negative (Negative) 09/13/18 16:05 Influenza A (RT-PCR) Negative (Negative) 09/13/18 16:05 Influenza B (Rapid) Negative (Negative) 09/13/18 16:05 Influenza B (RT-PCR) Negative (Negative) 09/13/18 16:05 Toxoplasma IgG Ab <7.20 IU/mL (<7.20) 09/16/18 12:09 Miscellaneous Test Flexitest 1 H 10/10/18 Unknown - Imaging and Cardiology Chest x-ray: image reviewed Abdominal x-ray: image reviewed CT Scan - head: report reviewed MRI - head: report reviewed, image reviewed Nutrition/Malnutrition Assess - Dietary Evaluation Nutrition/Malnutrition Findings: Nutrition Notes Start: 09/12/18 17:45 Freq: Status: Active Protocol: Document 10/16/18 09:48 LP (Rec: 10/16/18 09:51 LP [id number]) Nutrition Notes Need for Assessment generated from: MD Order Initial or Follow up Brief Note Current Diet TF- Vital High Protein at 70ml /hr Subjective/Other Information Consult for TF. TF to be changed due to worsening renal function. Nutrition Intervention Nutrition Support: Vital 1.2 at 60ml/hr Flush with 100ml q4h Kcal 1,728 Protein (gm) 108 Fluid (mL) 1,203 Follow-Up By: 10/18/18 Additional Comments Follow for TF change and tolerance
--- NOTE | 2018-10-16 13:21 | Progress Note ---
Assessment and Plan - Patient Problems (1) Acute kidney failure with tubular necrosis Current Visit: Yes Status: Acute Plan to address problem: Acute tubular necrosis secondary to sepsis. Kidney function worsening on ganciclovir. Need to initiate dialysis, discussed with pt's sister regarding risks and benefits of HD, who understand and agrees to HD. s/p vascath placement this AM. will initiate HD. (2) Sepsis Current Visit: Yes Status: Acute Plan to address problem: Continue AB per ID. 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 Continue treatment for both per the infectious disease. 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 Improved. Follow-up liver function test Subjective Date of service: 10/16/18 Principal diagnosis: low wbc Interval history: Pt remains intubated, opening eyes spontaneously, not following commands Objective - Vital Signs Vital signs: Vital Signs - 12hr 10/16/18 10/16/18 10/16/18 01:52 02:00 03:00 Temperature Temperature [ Post-Procedure] Pulse Rate 93 H 91 H Pulse Rate [ 96 H Bases] Pulse Rate [ From Monitor] Pulse Rate [ Intra-Procedure ] Pulse Rate [ Post-Procedure] Pulse Rate [ 94 H Throughout] Respiratory 26 H 27 H Rate Respiratory 18 Rate [Bases] Respiratory 21 Rate [ Generalized] Respiratory Rate [Intra- Procedure] Respiratory Rate [Post- Procedure] Respiratory 18 Rate [ Throughout] Blood Pressure 123/74 123/74 Blood Pressure [Intra- Procedure] Blood Pressure [Post-Procedure ] O2 Sat by Pulse 97 100 Oximetry O2 Sat by Pulse Oximetry [ Intra-Procedure ] O2 Sat by Pulse Oximetry [Post -Procedure] 10/16/18 10/16/18 10/16/18 03:14 03:48 04:00 Temperature 98.8 F Temperature [ Post-Procedure] Pulse Rate 87 88 Pulse Rate [ Bases] Pulse Rate [ 70 From Monitor] Pulse Rate [ Intra-Procedure ] Pulse Rate [ Post-Procedure] Pulse Rate [ Throughout] Respiratory 14 21 Rate Respiratory Rate [Bases] Respiratory Rate [ Generalized] Respiratory Rate [Intra- Procedure] Respiratory Rate [Post- Procedure] Respiratory Rate [ Throughout] Blood Pressure 129/72 126/73 Blood Pressure [Intra- Procedure] Blood Pressure [Post-Procedure ] O2 Sat by Pulse 100 98 Oximetry O2 Sat by Pulse Oximetry [ Intra-Procedure ] O2 Sat by Pulse Oximetry [Post -Procedure] 10/16/18 10/16/18 10/16/18 05:01 06:00 07:00 Temperature Temperature [ Post-Procedure] Pulse Rate 93 H 83 84 Pulse Rate [ Bases] Pulse Rate [ From Monitor] Pulse Rate [ Intra-Procedure ] Pulse Rate [ Post-Procedure] Pulse Rate [ Throughout] Respiratory 26 H 13 17 Rate Respiratory Rate [Bases] Respiratory Rate [ Generalized] Respiratory Rate [Intra- Procedure] Respiratory Rate [Post- Procedure] Respiratory Rate [ Throughout] Blood Pressure 126/73 117/69 125/66 Blood Pressure [Intra- Procedure] Blood Pressure [Post-Procedure ] O2 Sat by Pulse 100 98 97 Oximetry O2 Sat by Pulse Oximetry [ Intra-Procedure ] O2 Sat by Pulse Oximetry [Post -Procedure] 10/16/18 10/16/18 10/16/18 07:50 07:53 07:57 Temperature Temperature [ Post-Procedure] Pulse Rate 83 85 Pulse Rate [ 86 Bases] Pulse Rate [ From Monitor] Pulse Rate [ Intra-Procedure ] Pulse Rate [ Post-Procedure] Pulse Rate [ Throughout] Respiratory 15 Rate Respiratory 16 Rate [Bases] Respiratory Rate [ Generalized] Respiratory Rate [Intra- Procedure] Respiratory Rate [Post- Procedure] Respiratory Rate [ Throughout] Blood Pressure 125/66 125/66 Blood Pressure [Intra- Procedure] Blood Pressure [Post-Procedure ] O2 Sat by Pulse 100 100 Oximetry O2 Sat by Pulse Oximetry [ Intra-Procedure ] O2 Sat by Pulse Oximetry [Post -Procedure] 10/16/18 10/16/18 10/16/18 08:00 08:16 09:00 Temperature 97.3 F L Temperature [ Post-Procedure] Pulse Rate 86 85 Pulse Rate [ 93 H Bases] Pulse Rate [ 84 From Monitor] Pulse Rate [ Intra-Procedure ] Pulse Rate [ Post-Procedure] Pulse Rate [ Throughout] Respiratory 14 16 Rate Respiratory 22 Rate [Bases] Respiratory Rate [ Generalized] Respiratory Rate [Intra- Procedure] Respiratory Rate [Post- Procedure] Respiratory Rate [ Throughout] Blood Pressure 114/68 121/70 Blood Pressure [Intra- Procedure] Blood Pressure [Post-Procedure ] O2 Sat by Pulse 98 96 Oximetry O2 Sat by Pulse Oximetry [ Intra-Procedure ] O2 Sat by Pulse Oximetry [Post -Procedure] 10/16/18 10/16/18 10/16/18 11:15 11:31 11:43 Temperature Temperature [ 97.3 F L 97.3 F L Post-Procedure] Pulse Rate 80 Pulse Rate [ Bases] Pulse Rate [ From Monitor] Pulse Rate [ 85 85 Intra-Procedure ] Pulse Rate [ 81 81 Post-Procedure] Pulse Rate [ Throughout] Respiratory Rate Respiratory Rate [Bases] Respiratory Rate [ Generalized] Respiratory 25 H 25 H Rate [Intra- Procedure] Respiratory 20 20 Rate [Post- Procedure] Respiratory Rate [ Throughout] Blood Pressure 113/69 Blood Pressure 132/86 132/86 [Intra- Procedure] Blood Pressure 113/69 113/69 [Post-Procedure ] O2 Sat by Pulse 100 Oximetry O2 Sat by Pulse 100 100 Oximetry [ Intra-Procedure ] O2 Sat by Pulse 100 100 Oximetry [Post -Procedure] 10/16/18 10/16/18 11:46 12:00 Temperature Temperature [ 96.9 F L Post-Procedure] Pulse Rate Pulse Rate [ Bases] Pulse Rate [ 84 From Monitor] Pulse Rate [ 85 Intra-Procedure ] Pulse Rate [ 79 Post-Procedure] Pulse Rate [ Throughout] Respiratory 14 Rate Respiratory Rate [Bases] Respiratory Rate [ Generalized] Respiratory 25 H Rate [Intra- Procedure] Respiratory 16 Rate [Post- Procedure] Respiratory Rate [ Throughout] Blood Pressure Blood Pressure 132/86 [Intra- Procedure] Blood Pressure 140/84 [Post-Procedure ] O2 Sat by Pulse 100 Oximetry O2 Sat by Pulse 100 Oximetry [ Intra-Procedure ] O2 Sat by Pulse 99 Oximetry [Post -Procedure] - General Appearance General appearance: appears stated age, chronically ill, sedated on ventilator, intubated EENT: ATNC, PERRL, mucous membranes moist Neck: no JVD Respiratory: Present: Decreased Breath Sounds Cardiology: regular, S1S2 Gastrointestinal: normoactive bowel sounds Integumentary: no rash Neurologic: other (intubated ) - Lab 10/16/18 07:50 10/16/18 07:50 Most recent lab results Calcium 8.1 mg/dL (8.4-10.2) L 10/16/18 07:50 Phosphorus 8.50 mg/dL (2.5-4.5) H 10/14/18 09:40 Magnesium 2.10 mg/dL (1.7-2.3) 10/14/18 09:40 Urine Creatinine 57.5 mg/dL (0.1-20.0) H 10/11/18 05:40 Urine Sodium 70 mmol/L 10/11/18 05:40 Urine Total Protein 44 mg/dL (5-11.8) H 10/11/18 05:40 Medications & Allergies - Medications Allergies/Adverse Reactions: Allergies No Known Allergies Allergy (Unverified 09/11/18 17:50) Home Medications: Home Medications Medication Instructions Recorded Confirmed Last Taken Type No Known Home Medications [No 10/02/18 10/02/18 Unknown History Reported Home Medications] Active Medications: Generic Name Dose Route Start Last Admin Trade Name Freq PRN Reason Stop Dose Admin Acetaminophen 650 mg 09/11/18 19:30 10/09/18 16:32 Tylenol PO 650 mg Q4H PRN Administration Pain MILD(1-3)/Fever >100.5/RIVERA Acetaminophen 650 mg 09/21/18 07:39 10/07/18 21:15 Tylenol [place] 650 mg Q4H PRN Administration Fever >101 Albuterol 2.5 mg 09/11/18 19:30 09/16/18 06:09 Proventil IH 2.5 mg Q4HRT PRN Administration Shortness Of Breath Albuterol 2.5 mg 09/20/18 20:00 10/16/18 07:56 Proventil IH 2.5 mg Q6HRT GIA Administration Amiodarone HCl 200 mg 09/27/18 15:00 10/16/18 09:17 Cordarone PO 200 mg BID GIA Administration Lipase/Protease/Amylase 1 each 09/30/18 12:01 Pancreaze 10,500 Unit FEEDTUBE PRN PRN For Clogged Feeding Tube Atovaquone 750 mg 09/21/18 10:00 10/16/18 09:19 Mepron PO 750 mg BID GIA Administration Emtricitabine 200 mg 10/13/18 10:00 10/13/18 10:37 Emtriva PO 200 mg Q96H GIA Administration Famotidine 20 mg 10/10/18 10:00 10/16/18 09:17 Pepcid PO 20 mg DAILY GIA Administration Fluconazole 200 mg 10/05/18 12:00 10/16/18 09:17 Diflucan PO 200 mg QDAY GIA Administration Folic Acid 1 mg 10/07/18 10:00 10/16/18 09:16 Folvite PO 1 mg QDAY GIA Administration Glycopyrrolate 2 mg 10/07/18 18:00 10/16/18 12:37 Robinul PO 2 mg Q6HR GIA Administration Heparin Sodium (Porcine) 5,000 unit 10/05/18 14:00 10/16/18 05:43 Heparin SUB-Q 5,000 unit Q8HR GIA Administration Hydrophilic Ointment 1 applic 09/21/18 01:46 09/22/18 03:46 Vaseline Lip Therapy TP 1 applic Q2HR PRN Administration Dry Lips Ganciclovir Sodium 150 mg/ 250 mls @ 100 mls/hr 10/12/18 10:00 10/14/18 12:07 Sodium Chloride IV 100 mls/hr MoWeFr GIA Administration Sodium Chloride 100 mls @ 999 mls/hr 10/15/18 12:33 Nacl 0.9% IV CHERYL PRN Hypotension Levetiracetam 750 mg 10/12/18 22:00 10/16/18 09:18 Keppra PO 750 mg BID GIA Administration Levothyroxine Sodium 25 mcg 09/19/18 06:00 10/16/18 05:42 Synthroid PO 25 mcg DAILY@0600 GIA Administration Metoprolol Tartrate 12.5 mg 10/10/18 13:00 10/16/18 09:16 Lopressor PO 12.5 mg BID GIA Administration Multi-Ingred Cream/Lotion/Oil/Oint 1 applic 09/21/18 01:46 Artificial Tears Ophth Oint OU Q4HR PRN Dry Eye(s) Ondansetron HCl 4 mg 09/11/18 19:30 Zofran IV Q8H PRN Nausea And Vomiting Scopolamine 1 each 09/18/18 18:00 10/15/18 17:25 Transderm-Scop TD 1 each Q3D GIA Administration Simple Syrup 15 ml 09/30/18 12:01 10/07/18 06:18 Simple Syrup FEEDTUBE 15 ml PRN PRN Administration Hypoglycemia Simple Syrup 15 ml 10/15/18 10:45 Simple Syrup FEEDTUBE PRN PRN Hypoglycemia Simple Syrup 30 ml 10/15/18 10:45 Simple Syrup FEEDTUBE PRN PRN Hypoglycemia Sodium Bicarbonate 325 mg 10/15/18 10:45 Sodium Bicarbonate FEEDTUBE PRN PRN For Clogged Feeding Tube Sodium Chloride 10 ml 09/11/18 22:00 10/16/18 09:20 Sodium Chloride Flush Syringe 10 Ml IV 10 ml BID GIA Administration Sodium Chloride 10 ml 09/11/18 19:30 Sodium Chloride Flush Syringe 10 Ml IV PRN PRN LINE FLUSH Tbo-Filgrastim 480 mcg 10/14/18 10:00 10/16/18 09:51 Granix SUB-Q 10/16/18 23:59 480 mcg DAILY GIA Administration Tenofovir Disoproxil Fumarate 300 mg 10/13/18 10:00 10/13/18 10:37 Viread PO 300 mg Q96H GIA Administration
--- NOTE | 2018-10-16 18:53 | Progress Note ---
Assessment and Plan Cultures: 09/11/2018 blood culture: no growth 09/13/2018 serum cryptococcus ag neg 09/14/2018 CSF cryptococcus ag neg 09/14/2018 stool Nona 09/15/2018 stool +Giardia ag 09/19/2018 CSF cryptococcus ag neg 09/21/2018 tracheal aspirate culture: Nona albicans 09/23/2018 blood culture: No growth 09/23/2018 Fungal blood culture: no growth thus far 10/09/2018 blood culture: No growth A/P: 33 y/o male with no PMH; admitted on 09/11/2018 due to 4 days-AMS/behavioral changes, nausea, vomiting, diarrhea, weight loss and cough: 1) Low grade fevers: continues since 10/08 NOW resolved x 4 days, etiology ? likely IRIS related (ART started on 09/30) versus NGT-associated sinusitis/mastoiditis. shock resolved. Completed 10 days of Ceftriaxone, off since 10/03/2018. On ganciclovir for disseminated CMV. On vanco/cefepime for sinusitis/mastoiditis. 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 WBC remains low could be from CMV v/s ganciclovir. Clinically better - CMV DNA PCR 09/16/2018 is 1,058,978, 6 log - CMV DNA PCR 09/26/2018 is 710K, 5.85 log - CMV DNA PCR 10/03/2018 is 262K, 5.4 log 3) Acute respiratory failure: still on the vent minimal settings, mainly due to mental status issues. PJP DFA negative. CXR stable without pneumonia. 4) Acute encephalopathy: NOT better; possibly from neurosyphilis v/s CMV encephalitis v/s metabolic etiology. Of note, MRI did not show ventriculitis. CSF YAYO virus DNA PCR neg. Toxo IgG negative. He has received 20 days of Pen G IV and Ganciclovir with minimal improvement, still somnolent and nystagmus noted ? neurosyphilis treatement failure ? other etiologies like metabolic, CVA. Di scussed with neuro Dr Nazario EEG x 2 no epileptic activity - "Up to 4 EEGs over several months may be needed to capture interictal epileptiform activity". - repeat LP 10/10/3018 WBC 10, RBC 22K (traumatic), glu 47, prot 84 from 194, VDRL reactive 1:2 - Seizures reported on 10/09-10/10 - CT head done showed mild atrophy. No acute intracranial abnormalities. Paranasal sinus disease and new opacification of multiple mastoid air cells on the right and a few on the left suggesting acute mastoiditis. - MRI brain repeat 10/10 significant bilateral mastoiditis, generalized brain atrophy and stable paranasal sinusitis 5) Neurosyphilis: CSF VDRL positive, off Ceftriaxone and back on IV Penicillin completed 21 days 6) Diarrhea: likely due to Giardiasis as Giardia antigen positive in stool, in immunocompromised patient. Completed several days of Flagyl, stopped on 10/03/2018. 7) Oral candidiasis: on fluconazole, will need to continue as prophylaxis till immune reconstitution. 8) A.fib: cardiology following. On Amiodarone. 9) HIV/AIDS: newly diagnosed. Risk factor is MSM behavior. CD4=4. VL=50,700. 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 We started him on Tenofovir, Emtricitabine + Dolutegravir on 09/30/2018, watch closely for IRIS. 10) Neutropenia: likely from HIV/CMV myelosuppression. Also probably worse from ganciclovir. r/o disseminated MAC, thus far cultures negative. 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 started on HD 12) NGT-associated sinusitis/mastoiditis, NGT changed to OGT. Recs: - Discussion with sister who does not want to do any aggressive management (PEG/Trach) if prognosis is poor. I explained that his prognosis continues to be poor in light of not neurologic recover after finising IV penicillin for neurosyphilis and a week of ganciclovir for CMV. - consider neupogen as WBC is low - Renal is considering starting HD - completed cefepime and vanco 7 days for sinusitis/mastoiditis - continue IV Ganciclovir 5 mg/kg 3 times a week - renally adjusted again today, continue till CMV PCR is <200 - renal con board - all antibiotics are renally adjusted for CrCl < 10 - completed IV Penicillin G 24 million units daily for 21 days on 10/08/2018 - will repeat CMV DNA PCR on 10/17/2018 - continue atovaquone and azithromycin prophylaxis - continue fluconazole 200 mg daily PO as prophylaxis - continue HAART: Tenofovir, Emtricitabine + Dolutegravir watch closely for IRIS - renally adjusted today - monitor daily CBC, BMP - s/p neupogen 1 dose on 10/05/2018, hematology on board agree with additional Neupogen as needed from ID standpoint Overall prognosis poor/complex case Will follow Alayna Menendez MD Infectious Diseases Liability Claims Examiner [facility] ([facility]) M [phone] O [phone] Subjective Date of service: 10/16/18 Principal diagnosis: low wbc Interval history: Patient remains alert but not following commands, intubated on CPAP, open eyes, no fever ROS: unable to obtain Objective - Exam Narrative Exam: Constitutional: Intubated alert no follows commands open eyes in NAD Head, Ears, Nose: Normocephalic, atraumatic. External ears, nose normal Eyes: Conjunctivae/corneas clear. No icterus. No ptosis.no nystagmus Neck:no JVD, left anterior neck large hard nodule non tender Oral: ETT, OGT Cardiovascular: tachycardic Respiratory: distant BS GI: Soft, non-tender; bowel sounds normal. No peritoneal signs Musculoskeletal: No pedal edema, no cyanosis. Skin: No rash or abscess. Hem/Lymphatic: No palpable cervical or supraclavicular nodes. No lymphangitis Psych: alert Neurological: alert, moves right hand, does not move left hand PICC line 2/6 HD femoral - Constitutional Vitals: Vital Signs Temp Pulse Resp BP Pulse Ox 97.6 F 90 24 124/88 100 10/16/18 16:00 10/16/18 18:13 10/16/18 18:00 10/16/18 18:13 10/16/18 18:13 Temperature -Last 24 Hours Temperature [Post-Procedure] 96.9 F Temperature [Post-Procedure] 97.3 F Temperature [Post-Procedure] 97.3 F Temperature 97.6 F Temperature 97.6 F Temperature 97.2 F Temperature 97.3 F Temperature 98.8 F Temperature 98.7 F Temperature 98.9 F - Labs CBC & Chem 7: 10/16/18 07:50 10/16/18 07:50 Labs: Abnormal lab results 10/15/18 10/16/18 10/16/18 Range/Units 23:56 05:37 07:50 WBC 1.1 L* (4.5-11.0) K/mm3 RBC 2.70 L (3.65-5.03) M/mm3 Hgb 8.0 L (11.8-15.2) gm/dl Hct 24.4 L (35.5-45.6) % RDW 18.9 H (13.2-15.2) % Monocytes % (Manual) 8.0 H (0.0-7.3) % Seg Neutrophils # Man 0.7 L (1.8-7.7) K/mm3 Lymphocytes # (Manual) 0.2 L (1.2-5.4) K/mm3 Sodium (137-145) mmol/L Potassium (3.6-5.0) mmol/L Carbon Dioxide (22-30) mmol/L BUN (9-20) mg/dL Creatinine (0.8-1.5) mg/dL Glucose (75-100) mg/dL POC Glucose 164 H 152 H (70-105) Calcium (8.4-10.2) mg/dL 10/16/18 10/16/18 10/16/18 Range/Units 07:50 12:35 18:00 WBC (4.5-11.0) K/mm3 RBC (3.65-5.03) M/mm3 Hgb (11.8-15.2) gm/dl Hct (35.5-45.6) % RDW (13.2-15.2) % Monocytes % (Manual) (0.0-7.3) % Seg Neutrophils # Man (1.8-7.7) K/mm3 Lymphocytes # (Manual) (1.2-5.4) K/mm3 Sodium 147 H (137-145) mmol/L Potassium 3.0 L (3.6-5.0) mmol/L Carbon Dioxide 15 L (22-30) mmol/L BUN 143 H (9-20) mg/dL Creatinine 6.2 H (0.8-1.5) mg/dL Glucose 182 H (75-100) mg/dL POC Glucose 122 H 160 H (70-105) Calcium 8.1 L (8.4-10.2) mg/dL
[2018-10-17] MEDS: ROBINUL PO SCH ×4 (01:40→18:14)
[2018-10-17] MEDS: PROVENTIL IH SCH ×4 (01:58→19:37)
[2018-10-17] MEDS: HEPARIN SUB-Q SCH ×3 (05:34→21:56)
--- NOTE | 2018-10-17 07:55 | Hem/Onc Progress Note ---
Assessment and Plan 1. Leukopenia. ANC is 0.5. Neutropenic precaution is practical. 2. Anemia. We will investigate. 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 HAART has been started. At this time, there is no fever. 3. Human immunodeficiency virus, on HAART. 4. 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 5. Intubated. 6. On antibiotics for pneumonia. 7. History of ____ that is improved. 8. Looks at you, but does not communicate. 9. History of oral candidiasis. 10. Mention of giardiasis. 11. Encephalopathy. 12. RVR with atrial fibrillation. I will follow the patient during inpatient stay. At this time, his cytopenia is likely secondary to the HIV or the CMV. I will discuss with ID team to see if G-CSF support is an option. 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 - nephrology 10/12 - trach - peg not done - as family deciding the GCSF - did not change the WBC 10/13 - wbc 1 - opens eye - non communicative 10/14 - pt moves rt arm - eyes open still on vent - as per info - family is thinking about PEG - trach - they have not consented granix trial for low wbc / - gcsf trial - poor prognosis due to performance status 10/16 - dialysis cath wbc low - gCSF 10/17 - wbc still low - poor prognosis - ct folic acid for anemia - Patient Problems (1) Neutropenia Current Visit: Yes Status: Acute Subjective Date of service: 10/17/18 Principal diagnosis: low wbc Interval history: on vent - looks at you -non communicative Objective - Constitutional Vitals: Last Vital Signs Temp 98.1 F 10/17/18 03:22 Pulse 93 H 10/17/18 07:47 Resp 15 10/17/18 07:47 BP 143/79 10/17/18 07:47 Pulse Ox 100 10/17/18 07:47 General appearance: other (on vent) Performance status: 4-completely disabled - EENT Lymph node exam: negative cervical - Respiratory Respiratory effort: Positive: other (on vent) Respiratory: bilateral: diminished - Cardiovascular Heart Sounds: Present: S1 & S2 Extremity abnormal: edema - Gastrointestinal General gastrointestinal: Present: soft Rectal Exam: deferred - Genitourinary Male genitourinary: Present: deferred - Integumentary Integumentary: warm - Neurologic Neurologic: other (intubated - looks at you -non communicative) - Labs Lab Results: Laboratory Results - last 24 hr 10/16/18 10/16/18 10/16/18 07:50 07:50 12:35 WBC 1.1 L* RBC 2.70 L Hgb 8.0 L Hct 24.4 L MCV 90 MCH 30 MCHC 33 RDW 18.9 H Plt Count 208 Add Manual Diff Complete Total Counted 50 Seg Neutrophils % Account Director Seg Neuts % (Manual) 60.0 Band Neutrophils % 18.0 Lymphocytes % (Manual) 14.0 Reactive Lymphs % (Man) 0 Monocytes % (Manual) 8.0 H Eosinophils % (Manual) 0 Basophils % (Manual) 0 Metamyelocytes % 0 Myelocytes % 0 Promyelocytes % 0 Blast Cells % 0 Nucleated RBC % Not Reportable Seg Neutrophils # Man 0.7 L Band Neutrophils # 0.2 Lymphocytes # (Manual) 0.2 L Abs React Lymphs (Man) 0.0 Monocytes # (Manual) 0.1 Eosinophils # (Manual) 0.0 Basophils # (Manual) 0.0 Metamyelocytes # 0.0 Myelocytes # 0.0 Promyelocytes # 0.0 Blast Cells # 0.0 WBC Morphology Not Reportable Hypersegmented Neuts Not Reportable Hyposegmented Neuts Not Reportable Hypogranular Neuts Not Reportable Smudge Cells Not Reportable Toxic Granulation Not Reportable Toxic Vacuolation Not Reportable Dohle Bodies Not Reportable Pelger-Huet Anomaly Not Reportable Giovanna Rods Not Reportable Platelet Estimate Not Reportable Clumped Platelets Not Reportable Plt Clumps, EDTA Not Reportable Large Platelets Not Reportable Giant Platelets Not Reportable Platelet Satelliting Not Reportable Plt Morphology Comment Not Reportable RBC Morphology Not Reportable Dimorphic RBCs Not Reportable Polychromasia Not Reportable Hypochromasia Not Reportable Poikilocytosis 1+ Anisocytosis 1+ Microcytosis Not Reportable Macrocytosis Not Reportable Spherocytes Not Reportable Pappenheimer Bodies Not Reportable Sickle Cells Not Reportable Target Cells Not Reportable Tear Drop Cells Not Reportable Ovalocytes Not Reportable Helmet Cells Not Reportable [place] Bodies Not Reportable [place] Rings Not Reportable Dioni Cells Not Reportable Bite Cells Not Reportable Crenated Cell Not Reportable Elliptocytes Not Reportable Acanthocytes (Spur) Not Reportable Rouleaux Not Reportable Hemoglobin C Crystals Not Reportable Schistocytes Not Reportable Malaria parasites Not Reportable Kieran Bodies Not Reportable Hem Pathologist Commnt No Sodium 147 H Potassium 3.0 L Chloride 106.9 Carbon Dioxide 15 L Anion Gap 28 BUN 143 H Creatinine 6.2 H Estimated GFR 13 BUN/Creatinine Ratio 23 Glucose 182 H POC Glucose 122 H Calcium 8.1 L 10/16/18 10/16/18 10/17/18 18:00 23:32 05:03 WBC RBC Hgb Hct MCV MCH MCHC RDW Plt Count Add Manual Diff Total Counted Seg Neutrophils % Seg Neuts % (Manual) Band Neutrophils % Lymphocytes % (Manual) Reactive Lymphs % (Man) Monocytes % (Manual) Eosinophils % (Manual) Basophils % (Manual) Metamyelocytes % Myelocytes % Promyelocytes % Blast Cells % Nucleated RBC % Seg Neutrophils # Man Band Neutrophils # Lymphocytes # (Manual) Abs React Lymphs (Man) Monocytes # (Manual) Eosinophils # (Manual) Basophils # (Manual) Metamyelocytes # Myelocytes # Promyelocytes # Blast Cells # WBC Morphology Hypersegmented Neuts Hyposegmented Neuts Hypogranular Neuts Smudge Cells Toxic Granulation Toxic Vacuolation Dohle Bodies Pelger-Huet Anomaly Giovanna Rods Platelet Estimate Clumped Platelets Plt Clumps, EDTA Large Platelets Giant Platelets Platelet Satelliting Plt Morphology Comment RBC Morphology Dimorphic RBCs Polychromasia Hypochromasia Poikilocytosis Anisocytosis Microcytosis Macrocytosis Spherocytes Pappenheimer Bodies Sickle Cells Target Cells Tear Drop Cells Ovalocytes Helmet Cells [place] Bodies [place] Rings Dioni Cells Bite Cells Crenated Cell Elliptocytes Acanthocytes (Spur) Rouleaux Hemoglobin C Crystals Schistocytes Malaria parasites Kieran Bodies Hem Pathologist Commnt Sodium Potassium Chloride Carbon Dioxide Anion Gap BUN Creatinine Estimated GFR BUN/Creatinine Ratio Glucose POC Glucose 160 H 131 H 112 H Calcium Medications & Allergies - Medications Allergies/Adverse Reactions: Allergies No Known Allergies Allergy (Unverified 09/11/18 17:50) Home Medications: Home Medications Medication Instructions Recorded Confirmed Last Taken Type No Known Home Medications [No 10/02/18 10/02/18 Unknown History Reported Home Medications] Active Medications: Generic Name Dose Route Start Last Admin Trade Name Freq PRN Reason Stop Dose Admin Acetaminophen 650 mg 09/11/18 19:30 10/09/18 16:32 Tylenol PO 650 mg Q4H PRN Administration Pain MILD(1-3)/Fever >100.5/RIVERA Acetaminophen 650 mg 09/21/18 07:39 10/07/18 21:15 Tylenol OR 650 mg Q4H PRN Administration Fever >101 Albuterol 2.5 mg 09/11/18 19:30 09/16/18 06:09 Proventil IH 2.5 mg Q4HRT PRN Administration Shortness Of Breath Albuterol 2.5 mg 09/20/18 20:00 10/17/18 07:13 Proventil IH 2.5 mg Q6HRT GIA Administration Amiodarone HCl 200 mg 09/27/18 15:00 10/16/18 21:50 Cordarone PO 200 mg BID GIA Administration Lipase/Protease/Amylase 1 each 09/30/18 12:01 Pancrealen Gibbs 10,500 Unit FEEDTUBE PRN PRN For Clogged Feeding Tube Atovaquone 750 mg 09/21/18 10:00 10/16/18 22:26 Mepron PO 750 mg BID GIA Administration Emtricitabine 200 mg 10/13/18 10:00 10/13/18 10:37 Emtriva PO 200 mg Q96H GIA Administration Famotidine 20 mg 10/10/18 10:00 10/16/18 09:17 Pepcid PO 20 mg DAILY GIA Administration Fluconazole 200 mg 10/05/18 12:00 10/16/18 09:17 Diflucan PO 200 mg QDAY GIA Administration Folic Acid 1 mg 10/07/18 10:00 10/16/18 09:16 Folvite PO 1 mg QDAY GIA Administration Glycopyrrolate 2 mg 10/07/18 18:00 10/17/18 05:35 Robinul PO 2 mg Q6HR GIA Administration Heparin Sodium (Porcine) 5,000 unit 10/05/18 14:00 10/17/18 05:34 Heparin SUB-Q 5,000 unit Q8HR GIA Administration Hydrophilic Ointment 1 applic 09/21/18 01:46 09/22/18 03:46 Vaseline Lip Therapy TP 1 applic Q2HR PRN Administration Dry Lips Ganciclovir Sodium 150 mg/ 250 mls @ 100 mls/hr 10/12/18 10:00 10/14/18 12:07 Sodium Chloride IV 100 mls/hr MoWeFr GIA Administration Sodium Chloride 100 mls @ 999 mls/hr 10/15/18 12:33 Nacl 0.9% IV CHERYL PRN Hypotension Levetiracetam 750 mg 10/12/18 22:00 10/16/18 21:50 Keppra PO 750 mg BID GIA Administration Levothyroxine Sodium 25 mcg 09/19/18 06:00 10/16/18 05:42 Synthroid PO 25 mcg DAILY@0600 GIA Administration Metoprolol Tartrate 12.5 mg 10/10/18 13:00 10/16/18 21:49 Lopressor PO 12.5 mg BID GIA Administration Multi-Ingred Cream/Lotion/Oil/Oint 1 applic 09/21/18 01:46 Artificial Tears Ophth Oint OU Q4HR PRN Dry Eye(s) Ondansetron HCl 4 mg 09/11/18 19:30 Zofran IV Q8H PRN Nausea And Vomiting Scopolamine 1 each 09/18/18 18:00 10/15/18 17:25 Transderm-Scop TD 1 each Q3D GIA Administration Simple Syrup 15 ml 09/30/18 12:01 10/07/18 06:18 Simple Syrup FEEDTUBE 15 ml PRN PRN Administration Hypoglycemia Simple Syrup 15 ml 10/15/18 10:45 Simple Syrup FEEDTUBE PRN PRN Hypoglycemia Simple Syrup 30 ml 10/15/18 10:45 Simple Syrup FEEDTUBE PRN PRN Hypoglycemia Sodium Bicarbonate 325 mg 10/15/18 10:45 Sodium Bicarbonate FEEDTUBE PRN PRN For Clogged Feeding Tube Sodium Chloride 10 ml 09/11/18 22:00 10/16/18 22:26 Sodium Chloride Flush Syringe 10 Ml IV 10 ml BID GIA Administration Sodium Chloride 10 ml 09/11/18 19:30 Sodium Chloride Flush Syringe 10 Ml IV PRN PRN LINE FLUSH Tenofovir Disoproxil Fumarate 300 mg 10/13/18 10:00 10/13/18 10:37 Viread PO 300 mg Q96H GIA Administration
[2018-10-17] MEDS: SYNTHROID PO SCH (08:34)
--- NOTE | 2018-10-17 09:03 | Progress Note ---
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 He did not use condom consistently. - CD4=4 - VL=50,700 Elevated LFTs: resolved Neutropenia/thrombocytopenia Hypernatremia -VAP bundle addressed -Lung protective strategies -Antimicrobials per ID, HAART per ID - continue supplemental oxygen to keep sats > 90% - continue bronchodilators with pulmonary - continue daily SBT's, at this time mental status precludes liberation from MVS - monitor for drug-drug interactions - continue enteral nutrition as tolerated - PT/OT/ROM exercises as tolerated - mobility protocol for pressure ulcer prevention - continue GI & VTE prophylaxis -Re-culture if any fevers -Replete electrolytes as indicated -Telephone conversation with sister, she is agreable to tracheostomy and PEG as he appears to be improving. Notified the Surgeon Discussed care plan awith nephrology and with ID - continue other care per attending / other consultants The high probability of a clinically significant, sudden or life threatening deterioration of the [cardiac, respiratory and neurologic] system(s) required my full and direct attention, intervention and personal management. The aggregate critical care time was [30] minutes. This time is in addition to time spent performing reported procedures but includes the following: [x] Data Review and interpretation [x] Patient assessment and monitoring of vital signs [x] Documentation Subjective Date of service: 10/17/18 Principal diagnosis: low wbc Interval history: 33 y/o male with no PMH; admitted on 09/11/2018 due to 4 days-AMS/behavioral changes, nausea, voimiting, diarrhea, weight loss and cough: Patient is seen today for: Severe sepsis (present on admission with fever, tachycardia, hypotension and elevated lactate); Acute hypoxemic Respiratory failure; Bilateral pneumonia; Acute encephalopathy (Toxic / Metabolic); Atrial Fibrillation with RVR; HIV-AIDS Seen and examined at bedside; 24hour events reviewed; nursing and respiratory care staff consulted; no adverse overnight events reported to me; resting peacefully in bed; generalized edema with ongoing diarrhea. No further fevers overnight, Oral secretions, awake and obeying one step commands Remains on MVS, PSV 10/6 during the day with tidal volumes of about 350ml, not in any distress. Full ventilatory support at night. On going diarrhea No new events overnight s/p vascath placement and HD Objective Vital Signs - 12hr 10/16/18 10/16/18 10/16/18 21:49 22:00 23:00 Temperature Pulse Rate 86 91 H 84 Pulse Rate [ Bases] Pulse Rate [ Throughout] Respiratory 18 14 Rate Respiratory Rate [Bases] Respiratory Rate [ Throughout] Blood Pressure 134/74 135/77 131/78 O2 Sat by Pulse 95 95 Oximetry 10/16/18 10/16/18 10/16/18 23:09 23:46 23:55 Temperature 98 F Pulse Rate 86 88 Pulse Rate [ Bases] Pulse Rate [ Throughout] Respiratory 6 L 16 Rate Respiratory Rate [Bases] Respiratory Rate [ Throughout] Blood Pressure 138/85 138/85 O2 Sat by Pulse 100 100 Oximetry 10/17/18 10/17/18 10/17/18 00:00 01:00 02:00 Temperature Pulse Rate 89 86 89 Pulse Rate [ Bases] Pulse Rate [ Throughout] Respiratory 21 18 17 Rate Respiratory Rate [Bases] Respiratory Rate [ Throughout] Blood Pressure 130/83 130/78 135/83 O2 Sat by Pulse 95 95 98 Oximetry 10/17/18 10/17/18 10/17/18 02:15 02:36 03:00 Temperature Pulse Rate 92 H Pulse Rate [ Bases] Pulse Rate [ 86 Throughout] Respiratory 15 Rate Respiratory Rate [Bases] Respiratory 18 Rate [ Throughout] Blood Pressure 123/72 O2 Sat by Pulse 98 95 Oximetry 10/17/18 10/17/18 10/17/18 03:22 03:42 04:00 Temperature 98.1 F Pulse Rate 88 92 H Pulse Rate [ Bases] Pulse Rate [ Throughout] Respiratory 6 L 16 Rate Respiratory Rate [Bases] Respiratory Rate [ Throughout] Blood Pressure 133/78 O2 Sat by Pulse 98 96 Oximetry 10/17/18 10/17/18 10/17/18 05:00 06:00 06:15 Temperature Pulse Rate 90 86 Pulse Rate [ Bases] Pulse Rate [ Throughout] Respiratory 16 16 Rate Respiratory Rate [Bases] Respiratory Rate [ Throughout] Blood Pressure 132/78 141/81 132/78 O2 Sat by Pulse 97 93 98 Oximetry 10/17/18 10/17/18 10/17/18 07:00 07:13 07:47 Temperature Pulse Rate 89 93 H Pulse Rate [ 89 Bases] Pulse Rate [ 90 Throughout] Respiratory 14 15 Rate Respiratory 15 Rate [Bases] Respiratory 18 Rate [ Throughout] Blood Pressure 118/82 143/79 O2 Sat by Pulse 99 100 Oximetry 10/17/18 08:00 Temperature Pulse Rate 92 H Pulse Rate [ Bases] Pulse Rate [ Throughout] Respiratory 19 Rate Respiratory Rate [Bases] Respiratory Rate [ Throughout] Blood Pressure 144/78 O2 Sat by Pulse 98 Oximetry Constitutional: no acute distress, alert, other (orally intubated ETT at 23cm) Eyes: non-icteric ENT: oropharynx moist, other (ETT 25 cm NIKA) Neck: supple, no lymphadenopathy, other (no thyromegaly) Effort: normal Ascultation: Bilateral: rales, rhonchi (scant) Percussion: Bilateral: not dull Cardiovascular: regular rate and rhythm, other (S1,S2, no murmurs, gallps or rubs) Gastrointestinal: normoactive bowel sounds, soft, non-tender, non-distended Integumentary: rash Extremities: no cyanosis, pulses normal, no ischemia or petechiae, edema Neurologic: pupils equal and round, other (Left sided hemiparesis) Psychiatric: other (unable to assess) CBC and BMP: 10/16/18 07:50 10/16/18 07:50 ABG, PT/INR, D-dimer: ABG POC ABG pH 7.336 (7.35-7.45) L 10/12/18 13:30 POC ABG pCO2 31.5 (35-45) L 10/12/18 13:30 POC ABG pO2 122 (80-105) H 10/12/18 13:30 POC ABG HCO3 16.8 10/12/18 13:30 POC ABG Total CO2 18 10/12/18 13:30 POC ABG O2 Sat 99 10/12/18 13:30 PT/INR, D-dimer PT 16.0 Sec. (12.2-14.9) H 10/10/18 08:09 INR 1.20 (0.87-1.13) H 10/10/18 08:09 Abnormal lab findings: Abnormal Labs 09/11/18 09/11/18 09/11/18 18:00 18:00 18:00 WBC 1.9 L* RBC Hgb Hct RDW Plt Count 130 L Seg Neuts % (Manual) Lymphocytes % (Manual) Monocytes % (Manual) 16.0 H Eosinophils % (Manual) Basophils % (Manual) Nucleated RBC % Seg Neutrophils # Man 0.9 L Abs Lymphs (Manual) Lymphocytes # (Manual) 0.5 L Basophils # (Manual) PT INR APTT Heparin Anti-Xa Level POC ABG pH POC ABG pCO2 POC ABG pO2 Sodium 131 L Potassium Chloride Carbon Dioxide 17 L BUN 21 H Creatinine Glucose 126 H POC Glucose Lactic Acid 2.60 H* Calcium 8.1 L Phosphorus Magnesium Iron TIBC Ferritin AST 123 H ALT 115 H Total Creatine Kinase Total Protein Albumin 3.0 L Vitamin B12 Folate TSH Free T4 Urine WBC (Auto) Urine Creatinine Urine Chloride Urine Total Protein CSF VDRL Lymph Enumerat CD4/CD8 Absolute CD3 Count % CD4 Cells Absolute CD4 Count % CD8 Cells Absolute CD19 Count T.pallidum Ab (FTA-ABS) HIV-1 RNA PCR copies/ml HIV-1 RNA (PCR) log Miscellaneous Test 09/11/18 09/13/18 09/13/18 19:01 04:28 07:31 WBC 2.0 L RBC Hgb Hct RDW Plt Count 116 L Seg Neuts % (Manual) Lymphocytes % (Manual) Monocytes % (Manual) 8.0 H Eosinophils % (Manual) Basophils % (Manual) Nucleated RBC % Seg Neutrophils # Man 1.0 L Abs Lymphs (Manual) Lymphocytes # (Manual) 0.5 L Basophils # (Manual) PT INR APTT Heparin Anti-Xa Level POC ABG pH POC ABG pCO2 POC ABG pO2 Sodium Potassium Chloride 110.4 H Carbon Dioxide 19 L BUN Creatinine Glucose POC Glucose Lactic Acid 3.70 H* Calcium 7.9 L Phosphorus Magnesium Iron TIBC Ferritin AST ALT Total Creatine Kinase Total Protein Albumin Vitamin B12 Folate TSH Free T4 Urine WBC (Auto) Urine Creatinine Urine Chloride Urine Total Protein CSF VDRL Lymph Enumerat CD4/CD8 Absolute CD3 Count % CD4 Cells Absolute CD4 Count % CD8 Cells Absolute CD19 Count T.pallidum Ab (FTA-ABS) HIV-1 RNA PCR copies/ml HIV-1 RNA (PCR) log Miscellaneous Test 09/13/18 09/13/18 09/13/18 07:31 12:29 12:29 WBC RBC Hgb Hct RDW Plt Count Seg Neuts % (Manual) Lymphocytes % (Manual) Monocytes % (Manual) Eosinophils % (Manual) Basophils % (Manual) Nucleated RBC % Seg Neutrophils # Man Abs Lymphs (Manual) 309 L Lymphocytes # (Manual) Basophils # (Manual) PT INR APTT Heparin Anti-Xa Level POC ABG pH POC ABG pCO2 POC ABG pO2 Sodium Potassium Chloride Carbon Dioxide BUN Creatinine Glucose POC Glucose Lactic Acid Calcium Phosphorus Magnesium Iron TIBC Ferritin AST 70 H ALT 68 H Total Creatine Kinase Total Protein Albumin 2.5 L Vitamin B12 Folate TSH Free T4 Urine WBC (Auto) Urine Creatinine Urine Chloride Urine Total Protein CSF VDRL Lymph Enumerat CD4/CD8 0.01 L Absolute CD3 Count 220 L % CD4 Cells 1 L Absolute CD4 Count 4 L % CD8 Cells 70 H Absolute CD19 Count 54 L T.pallidum Ab (FTA-ABS) HIV-1 RNA PCR copies/ml 66058 H HIV-1 RNA (PCR) log 4.71 H Miscellaneous Test 09/13/18 09/14/18 09/14/18 12:29 07:17 16:34 WBC RBC Hgb Hct RDW Plt Count Seg Neuts % (Manual) Lymphocytes % (Manual) Monocytes % (Manual) Eosinophils % (Manual) Basophils % (Manual) Nucleated RBC % Seg Neutrophils # Man Abs Lymphs (Manual) Lymphocytes # (Manual) Basophils # (Manual) PT INR APTT Heparin Anti-Xa Level POC ABG pH POC ABG pCO2 POC ABG pO2 Sodium Potassium 3.4 L Chloride Carbon Dioxide 18 L BUN Creatinine Glucose 104 H POC Glucose Lactic Acid Calcium 7.6 L Phosphorus Magnesium Iron TIBC Ferritin AST 49 H ALT Total Creatine Kinase Total Protein Albumin 2.5 L Vitamin B12 Folate TSH Free T4 Urine WBC (Auto) Urine Creatinine Urine Chloride Urine Total Protein CSF VDRL Lymph Enumerat CD4/CD8 Absolute CD3 Count % CD4 Cells Absolute CD4 Count % CD8 Cells Absolute CD19 Count T.pallidum Ab (FTA-ABS) Reactive H HIV-1 RNA PCR copies/ml HIV-1 RNA (PCR) log Miscellaneous Test Flexitest 1 H 09/15/18 09/15/18 09/15/18 05:05 05:05 Unknown WBC 1.6 L* RBC Hgb 10.4 L Hct 31.1 L D RDW Plt Count 113 L Seg Neuts % (Manual) Lymphocytes % (Manual) Monocytes % (Manual) Eosinophils % (Manual) Basophils % (Manual) Nucleated RBC % Seg Neutrophils # Man Abs Lymphs (Manual) Lymphocytes # (Manual) Basophils # (Manual) PT INR APTT Heparin Anti-Xa Level POC ABG pH POC ABG pCO2 POC ABG pO2 Sodium Potassium Chloride 107.9 H Carbon Dioxide 18 L BUN 6 L Creatinine Glucose POC Glucose Lactic Acid Calcium 7.4 L Phosphorus Magnesium Iron TIBC Ferritin AST ALT Total Creatine Kinase Total Protein Albumin Vitamin B12 Folate TSH Free T4 Urine WBC (Auto) Urine Creatinine Urine Chloride Urine Total Protein CSF VDRL Reactive 1:8 H Lymph Enumerat CD4/CD8 Absolute CD3 Count % CD4 Cells Absolute CD4 Count % CD8 Cells Absolute CD19 Count T.pallidum Ab (FTA-ABS) HIV-1 RNA PCR copies/ml HIV-1 RNA (PCR) log Miscellaneous Test 09/16/18 09/16/18 09/16/18 06:55 11:41 11:41 WBC 2.8 L RBC Hgb 10.9 L Hct 33.5 L RDW Plt Count 135 L Seg Neuts % (Manual) Lymphocytes % (Manual) Monocytes % (Manual) Eosinophils % (Manual) Basophils % (Manual) Nucleated RBC % Seg Neutrophils # Man Abs Lymphs (Manual) Lymphocytes # (Manual) Basophils # (Manual) PT INR APTT Heparin Anti-Xa Level POC ABG pH POC ABG pCO2 POC ABG pO2 Sodium Potassium Chloride Carbon Dioxide BUN Creatinine Glucose POC Glucose Lactic Acid Calcium Phosphorus Magnesium Iron TIBC Ferritin AST ALT Total Creatine Kinase Total Protein Albumin Vitamin B12 Folate TSH 4.210 H Free T4 0.72 L Urine WBC (Auto) Urine Creatinine Urine Chloride Urine Total Protein CSF VDRL Lymph Enumerat CD4/CD8 Absolute CD3 Count % CD4 Cells Absolute CD4 Count % CD8 Cells Absolute CD19 Count T.pallidum Ab (FTA-ABS) HIV-1 RNA PCR copies/ml HIV-1 RNA (PCR) log Miscellaneous Test 09/16/18 09/16/18 09/17/18 11:41 15:43 05:13 WBC 2.0 L RBC Hgb 10.9 L Hct 32.7 L RDW Plt Count Seg Neuts % (Manual) Lymphocytes % (Manual) Monocytes % (Manual) Eosinophils % (Manual) Basophils % (Manual) Nucleated RBC % Seg Neutrophils # Man Abs Lymphs (Manual) Lymphocytes # (Manual) Basophils # (Manual) PT INR APTT Heparin Anti-Xa Level POC ABG pH POC ABG pCO2 29.3 L POC ABG pO2 70 L Sodium Potassium Chloride Carbon Dioxide BUN Creatinine Glucose POC Glucose Lactic Acid Calcium Phosphorus Magnesium Iron TIBC Ferritin AST ALT Total Creatine Kinase Total Protein Albumin Vitamin B12 934.5 H Folate TSH Free T4 Urine WBC (Auto) Urine Creatinine Urine Chloride Urine Total Protein CSF VDRL Lymph Enumerat CD4/CD8 Absolute CD3 Count % CD4 Cells Absolute CD4 Count % CD8 Cells Absolute CD19 Count T.pallidum Ab (FTA-ABS) HIV-1 RNA PCR copies/ml HIV-1 RNA (PCR) log Miscellaneous Test 09/17/18 09/17/18 09/18/18 05:13 21:57 12:46 WBC RBC Hgb Hct RDW Plt Count Seg Neuts % (Manual) Lymphocytes % (Manual) Monocytes % (Manual) Eosinophils % (Manual) Basophils % (Manual) Nucleated RBC % Seg Neutrophils # Man Abs Lymphs (Manual) Lymphocytes # (Manual) Basophils # (Manual) PT INR APTT Heparin Anti-Xa Level POC ABG pH POC ABG pCO2 POC ABG pO2 Sodium Potassium Chloride 107.2 H Carbon Dioxide 21 L BUN 3 L Creatinine 0.7 L Glucose POC Glucose 108 H Lactic Acid Calcium 7.9 L Phosphorus Magnesium Iron TIBC Ferritin AST ALT Total Creatine Kinase Total Protein 6.1 L Albumin 2.6 L Vitamin B12 Folate TSH Free T4 0.75 L Urine WBC (Auto) Urine Creatinine Urine Chloride Urine Total Protein CSF VDRL Lymph Enumerat CD4/CD8 Absolute CD3 Count % CD4 Cells Absolute CD4 Count % CD8 Cells Absolute CD19 Count T.pallidum Ab (FTA-ABS) HIV-1 RNA PCR copies/ml HIV-1 RNA (PCR) log Miscellaneous Test 09/18/18 09/19/18 09/19/18 12:46 04:57 04:57 WBC 2.1 L RBC Hgb 11.4 L Hct 34.2 L RDW Plt Count Seg Neuts % (Manual) Lymphocytes % (Manual) Monocytes % (Manual) Eosinophils % (Manual) Basophils % (Manual) Nucleated RBC % Seg Neutrophils # Man Abs Lymphs (Manual) Lymphocytes # (Manual) Basophils # (Manual) PT INR APTT Heparin Anti-Xa Level POC ABG pH POC ABG pCO2 POC ABG pO2 Sodium Potassium Chloride Carbon Dioxide 19 L BUN 6 L Creatinine Glucose POC Glucose Lactic Acid Calcium 7.9 L Phosphorus Magnesium Iron TIBC Ferritin AST ALT Total Creatine Kinase Total Protein Albumin Vitamin B12 Folate TSH 5.190 H Free T4 Urine WBC (Auto) Urine Creatinine Urine Chloride Urine Total Protein CSF VDRL Lymph Enumerat CD4/CD8 Absolute CD3 Count % CD4 Cells Absolute CD4 Count % CD8 Cells Absolute CD19 Count T.pallidum Ab (FTA-ABS) HIV-1 RNA PCR copies/ml HIV-1 RNA (PCR) log Miscellaneous Test 09/19/18 09/19/18 09/20/18 15:00 15:00 05:33 WBC RBC Hgb Hct RDW Plt Count Seg Neuts % (Manual) Lymphocytes % (Manual) Monocytes % (Manual) Eosinophils % (Manual) Basophils % (Manual) Nucleated RBC % Seg Neutrophils # Man Abs Lymphs (Manual) Lymphocytes # (Manual) Basophils # (Manual) PT INR APTT Heparin Anti-Xa Level POC ABG pH POC ABG pCO2 POC ABG pO2 Sodium 136 L Potassium Chloride Carbon Dioxide 19 L BUN 7 L Creatinine Glucose POC Glucose Lactic Acid Calcium Phosphorus Magnesium Iron TIBC Ferritin AST ALT Total Creatine Kinase Total Protein Albumin Vitamin B12 Folate TSH Free T4 Urine WBC (Auto) Urine Creatinine Urine Chloride Urine Total Protein CSF VDRL Reactive 1:4 H Lymph Enumerat CD4/CD8 Absolute CD3 Count % CD4 Cells Absolute CD4 Count % CD8 Cells Absolute CD19 Count T.pallidum Ab (FTA-ABS) HIV-1 RNA PCR copies/ml HIV-1 RNA (PCR) log Miscellaneous Test Flexitest 1 H 09/20/18 09/21/18 09/21/18 06:52 01:06 03:49 WBC 2.5 L RBC Hgb Hct RDW Plt Count Seg Neuts % (Manual) Lymphocytes % (Manual) Monocytes % (Manual) Eosinophils % (Manual) Basophils % (Manual) Nucleated RBC % Seg Neutrophils # Man Abs Lymphs (Manual) Lymphocytes # (Manual) Basophils # (Manual) PT INR APTT Heparin Anti-Xa Level POC ABG pH 7.159 L POC ABG pCO2 32.9 L 70.0 H POC ABG pO2 62 L 254 H Sodium Potassium Chloride Carbon Dioxide BUN Creatinine Glucose POC Glucose Lactic Acid Calcium Phosphorus Magnesium Iron TIBC Ferritin AST ALT Total Creatine Kinase Total Protein Albumin Vitamin B12 Folate TSH Free T4 Urine WBC (Auto) Urine Creatinine Urine Chloride Urine Total Protein CSF VDRL Lymph Enumerat CD4/CD8 Absolute CD3 Count % CD4 Cells Absolute CD4 Count % CD8 Cells Absolute CD19 Count T.pallidum Ab (FTA-ABS) HIV-1 RNA PCR copies/ml HIV-1 RNA (PCR) log Miscellaneous Test 09/21/18 09/21/18 09/21/18 04:15 04:15 04:25 WBC 3.1 L RBC Hgb 11.6 L Hct RDW Plt Count Seg Neuts % (Manual) Lymphocytes % (Manual) Monocytes % (Manual) 12.0 H Eosinophils % (Manual) Basophils % (Manual) Nucleated RBC % Seg Neutrophils # Man 1.6 L Abs Lymphs (Manual) Lymphocytes # (Manual) 0.5 L Basophils # (Manual) PT INR APTT Heparin Anti-Xa Level POC ABG pH POC ABG pCO2 POC ABG pO2 Sodium Potassium 6.1 H* D Chloride Carbon Dioxide 19 L BUN Creatinine Glucose 108 H POC Glucose Lactic Acid Calcium Phosphorus Magnesium Iron TIBC Ferritin AST ALT Total Creatine Kinase 685 H Total Protein Albumin Vitamin B12 Folate TSH Free T4 Urine WBC (Auto) Urine Creatinine Urine Chloride Urine Total Protein CSF VDRL Lymph Enumerat CD4/CD8 Absolute CD3 Count % CD4 Cells Absolute CD4 Count % CD8 Cells Absolute CD19 Count T.pallidum Ab (FTA-ABS) HIV-1 RNA PCR copies/ml HIV-1 RNA (PCR) log Miscellaneous Test 09/21/18 09/21/18 09/21/18 09:59 10:07 11:00 WBC RBC Hgb 11.7 L Hct RDW Plt Count Seg Neuts % (Manual) Lymphocytes % (Manual) Monocytes % (Manual) Eosinophils % (Manual) Basophils % (Manual) Nucleated RBC % Seg Neutrophils # Man Abs Lymphs (Manual) Lymphocytes # (Manual) Basophils # (Manual) PT INR APTT Heparin Anti-Xa Level POC ABG pH 7.301 L POC ABG pCO2 POC ABG pO2 109 H Sodium Potassium 6.5 H* Chloride Carbon Dioxide 18 L BUN Creatinine 2.1 H D Glucose POC Glucose Lactic Acid Calcium 8.1 L Phosphorus Magnesium Iron TIBC Ferritin AST 94 H ALT Total Creatine Kinase Total Protein Albumin 2.8 L Vitamin B12 Folate TSH Free T4 Urine WBC (Auto) Urine Creatinine Urine Chloride Urine Total Protein CSF VDRL Lymph Enumerat CD4/CD8 Absolute CD3 Count % CD4 Cells Absolute CD4 Count % CD8 Cells Absolute CD19 Count T.pallidum Ab (FTA-ABS) HIV-1 RNA PCR copies/ml HIV-1 RNA (PCR) log Miscellaneous Test 09/21/18 09/21/18 09/21/18 15:00 21:54 21:54 WBC RBC Hgb Hct RDW Plt Count Seg Neuts % (Manual) Lymphocytes % (Manual) Monocytes % (Manual) Eosinophils % (Manual) Basophils % (Manual) Nucleated RBC % Seg Neutrophils # Man Abs Lymphs (Manual) Lymphocytes # (Manual) Basophils # (Manual) PT 19.9 H INR 1.65 H APTT 40.9 H Heparin Anti-Xa Level 0.98 H POC ABG pH POC ABG pCO2 POC ABG pO2 Sodium Potassium 5.2 H Chloride Carbon Dioxide BUN Creatinine Glucose POC Glucose Lactic Acid Calcium Phosphorus Magnesium Iron TIBC Ferritin AST ALT Total Creatine Kinase Total Protein Albumin Vitamin B12 Folate TSH Free T4 Urine WBC (Auto) Urine Creatinine Urine Chloride Urine Total Protein CSF VDRL Lymph Enumerat CD4/CD8 Absolute CD3 Count % CD4 Cells Absolute CD4 Count % CD8 Cells Absolute CD19 Count T.pallidum Ab (FTA-ABS) HIV-1 RNA PCR copies/ml HIV-1 RNA (PCR) log Miscellaneous Test 09/21/18 09/22/18 09/22/18 22:57 03:01 05:27 WBC RBC Hgb Hct RDW Plt Count Seg Neuts % (Manual) Lymphocytes % (Manual) Monocytes % (Manual) Eosinophils % (Manual) Basophils % (Manual) Nucleated RBC % Seg Neutrophils # Man Abs Lymphs (Manual) Lymphocytes # (Manual) Basophils # (Manual) PT INR APTT Heparin Anti-Xa Level POC ABG pH POC ABG pCO2 32.7 L POC ABG pO2 Sodium Potassium Chloride Carbon Dioxide BUN Creatinine Glucose POC Glucose 124 H 128 H Lactic Acid Calcium Phosphorus Magnesium Iron TIBC Ferritin AST ALT Total Creatine Kinase Total Protein Albumin Vitamin B12 Folate TSH Free T4 Urine WBC (Auto) Urine Creatinine Urine Chloride Urine Total Protein CSF VDRL Lymph Enumerat CD4/CD8 Absolute CD3 Count % CD4 Cells Absolute CD4 Count % CD8 Cells Absolute CD19 Count T.pallidum Ab (FTA-ABS) HIV-1 RNA PCR copies/ml HIV-1 RNA (PCR) log Miscellaneous Test 09/22/18 09/22/18 09/22/18 07:00 07:00 11:32 WBC 1.8 L* RBC 3.59 L Hgb 10.1 L Hct 30.8 L RDW Plt Count 126 L Seg Neuts % (Manual) Lymphocytes % (Manual) Monocytes % (Manual) Eosinophils % (Manual) Basophils % (Manual) Nucleated RBC % Seg Neutrophils # Man Abs Lymphs (Manual) Lymphocytes # (Manual) Basophils # (Manual) PT INR APTT Heparin Anti-Xa Level POC ABG pH POC ABG pCO2 POC ABG pO2 Sodium Potassium Chloride Carbon Dioxide BUN 27 H Creatinine 2.0 H Glucose 128 H POC Glucose 123 H Lactic Acid Calcium 6.9 L Phosphorus Magnesium Iron TIBC Ferritin AST ALT Total Creatine Kinase Total Protein Albumin Vitamin B12 Folate TSH Free T4 Urine WBC (Auto) Urine Creatinine Urine Chloride Urine Total Protein CSF VDRL Lymph Enumerat CD4/CD8 Absolute CD3 Count % CD4 Cells Absolute CD4 Count % CD8 Cells Absolute CD19 Count T.pallidum Ab (FTA-ABS) HIV-1 RNA PCR copies/ml HIV-1 RNA (PCR) log Miscellaneous Test 09/22/18 09/22/18 09/22/18 15:52 18:18 23:52 WBC RBC Hgb Hct RDW Plt Count Seg Neuts % (Manual) Lymphocytes % (Manual) Monocytes % (Manual) Eosinophils % (Manual) Basophils % (Manual) Nucleated RBC % Seg Neutrophils # Man Abs Lymphs (Manual) Lymphocytes # (Manual) Basophils # (Manual) PT INR APTT Heparin Anti-Xa Level POC ABG pH POC ABG pCO2 48.7 H POC ABG pO2 Sodium Potassium Chloride Carbon Dioxide BUN Creatinine Glucose POC Glucose 110 H 124 H Lactic Acid Calcium Phosphorus Magnesium Iron TIBC Ferritin AST ALT Total Creatine Kinase Total Protein Albumin Vitamin B12 Folate TSH Free T4 Urine WBC (Auto) Urine Creatinine Urine Chloride Urine Total Protein CSF VDRL Lymph Enumerat CD4/CD8 Absolute CD3 Count % CD4 Cells Absolute CD4 Count % CD8 Cells Absolute CD19 Count T.pallidum Ab (FTA-ABS) HIV-1 RNA PCR copies/ml HIV-1 RNA (PCR) log Miscellaneous Test 09/23/18 09/23/18 09/23/18 04:10 05:55 05:55 WBC RBC Hgb 10.0 L Hct 30.3 L RDW Plt Count 117 L Seg Neuts % (Manual) Lymphocytes % (Manual) Monocytes % (Manual) Eosinophils % (Manual) Basophils % (Manual) Nucleated RBC % Seg Neutrophils # Man Abs Lymphs (Manual) Lymphocytes # (Manual) Basophils # (Manual) PT INR APTT Heparin Anti-Xa Level 0.26 L POC ABG pH POC ABG pCO2 POC ABG pO2 144 H Sodium Potassium Chloride Carbon Dioxide BUN Creatinine Glucose POC Glucose Lactic Acid Calcium Phosphorus Magnesium Iron TIBC Ferritin AST ALT Total Creatine Kinase Total Protein Albumin Vitamin B12 Folate TSH Free T4 Urine WBC (Auto) Urine Creatinine Urine Chloride Urine Total Protein CSF VDRL Lymph Enumerat CD4/CD8 Absolute CD3 Count % CD4 Cells Absolute CD4 Count % CD8 Cells Absolute CD19 Count T.pallidum Ab (FTA-ABS) HIV-1 RNA PCR copies/ml HIV-1 RNA (PCR) log Miscellaneous Test 09/23/18 09/23/18 09/23/18 08:10 08:10 23:57 WBC 1.3 L* RBC 3.53 L Hgb 9.9 L Hct 30.0 L RDW Plt Count 119 L Seg Neuts % (Manual) Lymphocytes % (Manual) Monocytes % (Manual) Eosinophils % (Manual) Basophils % (Manual) Nucleated RBC % Seg Neutrophils # Man Abs Lymphs (Manual) Lymphocytes # (Manual) Basophils # (Manual) PT INR APTT Heparin Anti-Xa Level POC ABG pH POC ABG pCO2 POC ABG pO2 Sodium Potassium Chloride Carbon Dioxide BUN Creatinine Glucose 122 H POC Glucose 115 H Lactic Acid Calcium 6.9 L Phosphorus Magnesium Iron TIBC Ferritin AST ALT Total Creatine Kinase Total Protein Albumin Vitamin B12 Folate TSH Free T4 Urine WBC (Auto) Urine Creatinine Urine Chloride Urine Total Protein CSF VDRL Lymph Enumerat CD4/CD8 Absolute CD3 Count % CD4 Cells Absolute CD4 Count % CD8 Cells Absolute CD19 Count T.pallidum Ab (FTA-ABS) HIV-1 RNA PCR copies/ml HIV-1 RNA (PCR) log Miscellaneous Test 09/24/18 09/24/18 09/24/18 12:04 14:42 18:10 WBC RBC Hgb Hct RDW Plt Count Seg Neuts % (Manual) Lymphocytes % (Manual) Monocytes % (Manual) Eosinophils % (Manual) Basophils % (Manual) Nucleated RBC % Seg Neutrophils # Man Abs Lymphs (Manual) Lymphocytes # (Manual) Basophils # (Manual) PT INR APTT Heparin Anti-Xa Level 0.76 H POC ABG pH POC ABG pCO2 POC ABG pO2 Sodium Potassium Chloride Carbon Dioxide BUN Creatinine Glucose POC Glucose 111 H 138 H Lactic Acid Calcium Phosphorus Magnesium Iron TIBC Ferritin AST ALT Total Creatine Kinase Total Protein Albumin Vitamin B12 Folate TSH Free T4 Urine WBC (Auto) Urine Creatinine Urine Chloride Urine Total Protein CSF VDRL Lymph Enumerat CD4/CD8 Absolute CD3 Count % CD4 Cells Absolute CD4 Count % CD8 Cells Absolute CD19 Count T.pallidum Ab (FTA-ABS) HIV-1 RNA PCR copies/ml HIV-1 RNA (PCR) log Miscellaneous Test 09/25/18 09/25/18 09/25/18 03:45 04:24 14:20 WBC RBC Hgb 9.7 L Hct 29.4 L RDW Plt Count 104 L Seg Neuts % (Manual) Lymphocytes % (Manual) Monocytes % (Manual) Eosinophils % (Manual) Basophils % (Manual) Nucleated RBC % Seg Neutrophils # Man Abs Lymphs (Manual) Lymphocytes # (Manual) Basophils # (Manual) PT INR APTT Heparin Anti-Xa Level POC ABG pH 7.460 H POC ABG pCO2 32.9 L POC ABG pO2 Sodium Potassium 3.5 L Chloride 110.3 H Carbon Dioxide BUN Creatinine Glucose 105 H POC Glucose Lactic Acid Calcium 6.7 L Phosphorus Magnesium Iron TIBC Ferritin AST 633 H ALT 481 H Total Creatine Kinase Total Protein 4.8 L D Albumin 1.9 L Vitamin B12 Folate TSH Free T4 Urine WBC (Auto) Urine Creatinine Urine Chloride Urine Total Protein CSF VDRL Lymph Enumerat CD4/CD8 Absolute CD3 Count % CD4 Cells Absolute CD4 Count % CD8 Cells Absolute CD19 Count T.pallidum Ab (FTA-ABS) HIV-1 RNA PCR copies/ml HIV-1 RNA (PCR) log Miscellaneous Test 09/26/18 09/26/18 09/26/18 06:15 06:15 10:43 WBC 1.2 L* RBC 3.32 L Hgb 9.2 L Hct 28.6 L RDW Plt Count 97 L Seg Neuts % (Manual) 24.0 L Lymphocytes % (Manual) 43.0 H Monocytes % (Manual) 19.0 H Eosinophils % (Manual) 8.0 H Basophils % (Manual) 2.0 H Nucleated RBC % 3.0 H Seg Neutrophils # Man 0.0 L Abs Lymphs (Manual) Lymphocytes # (Manual) 0.0 L Basophils # (Manual) PT INR APTT Heparin Anti-Xa Level POC ABG pH 7.459 H POC ABG pCO2 POC ABG pO2 141 H Sodium Potassium Chloride 112.8 H Carbon Dioxide BUN Creatinine Glucose 110 H POC Glucose Lactic Acid Calcium 7.0 L Phosphorus 0.90 L* Magnesium Iron TIBC Ferritin AST 362 H ALT 360 H Total Creatine Kinase Total Protein 4.9 L Albumin 1.5 L Vitamin B12 Folate TSH Free T4 Urine WBC (Auto) Urine Creatinine Urine Chloride Urine Total Protein CSF VDRL Lymph Enumerat CD4/CD8 Absolute CD3 Count % CD4 Cells Absolute CD4 Count % CD8 Cells Absolute CD19 Count T.pallidum Ab (FTA-ABS) HIV-1 RNA PCR copies/ml HIV-1 RNA (PCR) log Miscellaneous Test 09/26/18 09/27/18 09/28/18 13:56 04:11 07:49 WBC RBC Hgb 9.1 L Hct 29.1 L RDW Plt Count 96 L Seg Neuts % (Manual) Lymphocytes % (Manual) Monocytes % (Manual) Eosinophils % (Manual) Basophils % (Manual) Nucleated RBC % Seg Neutrophils # Man Abs Lymphs (Manual) Lymphocytes # (Manual) Basophils # (Manual) PT INR APTT Heparin Anti-Xa Level POC ABG pH POC ABG pCO2 POC ABG pO2 Sodium 146 H Potassium Chloride 111.6 H Carbon Dioxide BUN Creatinine Glucose POC Glucose 135 H Lactic Acid Calcium 7.4 L Phosphorus Magnesium Iron TIBC Ferritin AST ALT Total Creatine Kinase Total Protein Albumin Vitamin B12 Folate TSH Free T4 Urine WBC (Auto) Urine Creatinine Urine Chloride Urine Total Protein CSF VDRL Lymph Enumerat CD4/CD8 Absolute CD3 Count % CD4 Cells Absolute CD4 Count % CD8 Cells Absolute CD19 Count T.pallidum Ab (FTA-ABS) HIV-1 RNA PCR copies/ml HIV-1 RNA (PCR) log Miscellaneous Test 09/28/18 09/29/18 09/29/18 10:43 05:00 05:00 WBC 1.2 L* RBC 3.13 L Hgb 8.6 L Hct 27.3 L RDW Plt Count 137 L Seg Neuts % (Manual) Lymphocytes % (Manual) Monocytes % (Manual) 16.0 H Eosinophils % (Manual) Basophils % (Manual) Nucleated RBC % 4.0 H Seg Neutrophils # Man 0.5 L Abs Lymphs (Manual) Lymphocytes # (Manual) 0.3 L Basophils # (Manual) PT INR APTT Heparin Anti-Xa Level POC ABG pH 7.300 L POC ABG pCO2 53.9 H POC ABG pO2 Sodium 147 H Potassium 3.4 L Chloride 114.5 H Carbon Dioxide BUN Creatinine Glucose POC Glucose Lactic Acid Calcium 7.7 L Phosphorus Magnesium Iron TIBC Ferritin AST 69 H ALT 110 H Total Creatine Kinase Total Protein 5.2 L Albumin 1.9 L Vitamin B12 Folate TSH Free T4 Urine WBC (Auto) Urine Creatinine Urine Chloride Urine Total Protein CSF VDRL Lymph Enumerat CD4/CD8 Absolute CD3 Count % CD4 Cells Absolute CD4 Count % CD8 Cells Absolute CD19 Count T.pallidum Ab (FTA-ABS) HIV-1 RNA PCR copies/ml HIV-1 RNA (PCR) log Miscellaneous Test 09/29/18 09/29/18 09/30/18 06:07 13:22 05:19 WBC 0.9 L* RBC 3.03 L Hgb 8.6 L Hct 25.9 L RDW Plt Count Seg Neuts % (Manual) Lymphocytes % (Manual) Monocytes % (Manual) Eosinophils % (Manual) Basophils % (Manual) Nucleated RBC % Seg Neutrophils # Man Abs Lymphs (Manual) Lymphocytes # (Manual) Basophils # (Manual) PT INR APTT Heparin Anti-Xa Level POC ABG pH POC ABG pCO2 46.9 H POC ABG pO2 Sodium Potassium Chloride Carbon Dioxide BUN Creatinine Glucose POC Glucose 109 H Lactic Acid Calcium Phosphorus Magnesium Iron TIBC Ferritin AST ALT Total Creatine Kinase Total Protein Albumin Vitamin B12 Folate TSH Free T4 Urine WBC (Auto) Urine Creatinine Urine Chloride Urine Total Protein CSF VDRL Lymph Enumerat CD4/CD8 Absolute CD3 Count % CD4 Cells Absolute CD4 Count % CD8 Cells Absolute CD19 Count T.pallidum Ab (FTA-ABS) HIV-1 RNA PCR copies/ml HIV-1 RNA (PCR) log Miscellaneous Test 09/30/18 09/30/18 09/30/18 05:19 11:14 23:28 WBC RBC Hgb Hct RDW Plt Count Seg Neuts % (Manual) Lymphocytes % (Manual) Monocytes % (Manual) Eosinophils % (Manual) Basophils % (Manual) Nucleated RBC % Seg Neutrophils # Man Abs Lymphs (Manual) Lymphocytes # (Manual) Basophils # (Manual) PT INR APTT Heparin Anti-Xa Level 0.72 H POC ABG pH POC ABG pCO2 46.6 H POC ABG pO2 Sodium 150 H Potassium Chloride 115.2 H Carbon Dioxide BUN Creatinine Glucose POC Glucose Lactic Acid Calcium 7.9 L Phosphorus Magnesium Iron TIBC Ferritin AST ALT Total Creatine Kinase Total Protein Albumin Vitamin B12 Folate TSH Free T4 Urine WBC (Auto) Urine Creatinine Urine Chloride Urine Total Protein CSF VDRL Lymph Enumerat CD4/CD8 Absolute CD3 Count % CD4 Cells Absolute CD4 Count % CD8 Cells Absolute CD19 Count T.pallidum Ab (FTA-ABS) HIV-1 RNA PCR copies/ml HIV-1 RNA (PCR) log Miscellaneous Test 10/01/18 10/01/18 10/02/18 04:55 04:55 07:15 WBC 0.9 L* 0.7 L* RBC 3.01 L 2.92 L Hgb 8.4 L 8.4 L Hct 26.0 L 24.9 L RDW Plt Count Seg Neuts % (Manual) Lymphocytes % (Manual) Monocytes % (Manual) Eosinophils % (Manual) Basophils % (Manual) Nucleated RBC % Seg Neutrophils # Man Abs Lymphs (Manual) Lymphocytes # (Manual) Basophils # (Manual) PT INR APTT Heparin Anti-Xa Level POC ABG pH POC ABG pCO2 POC ABG pO2 Sodium 147 H Potassium 3.4 L Chloride 113.1 H Carbon Dioxide BUN 22 H Creatinine Glucose POC Glucose Lactic Acid Calcium 7.3 L Phosphorus Magnesium Iron TIBC Ferritin AST ALT Total Creatine Kinase Total Protein Albumin Vitamin B12 Folate TSH Free T4 Urine WBC (Auto) Urine Creatinine Urine Chloride Urine Total Protein CSF VDRL Lymph Enumerat CD4/CD8 Absolute CD3 Count % CD4 Cells Absolute CD4 Count % CD8 Cells Absolute CD19 Count T.pallidum Ab (FTA-ABS) HIV-1 RNA PCR copies/ml HIV-1 RNA (PCR) log Miscellaneous Test 10/02/18 10/03/18 10/03/18 07:15 06:12 06:12 WBC 0.8 L* RBC 2.96 L Hgb 8.5 L Hct 25.9 L RDW 15.4 H Plt Count Seg Neuts % (Manual) Lymphocytes % (Manual) Monocytes % (Manual) Eosinophils % (Manual) Basophils % (Manual) Nucleated RBC % Seg Neutrophils # Man Abs Lymphs (Manual) Lymphocytes # (Manual) Basophils # (Manual) PT INR APTT Heparin Anti-Xa Level POC ABG pH POC ABG pCO2 POC ABG pO2 Sodium Potassium 3.4 L 3.4 L Chloride 108.3 H Carbon Dioxide BUN Creatinine Glucose POC Glucose Lactic Acid Calcium 7.6 L 7.4 L Phosphorus Magnesium Iron TIBC Ferritin AST ALT Total Creatine Kinase Total Protein Albumin Vitamin B12 Folate TSH Free T4 Urine WBC (Auto) Urine Creatinine Urine Chloride Urine Total Protein CSF VDRL Lymph Enumerat CD4/CD8 Absolute CD3 Count % CD4 Cells Absolute CD4 Count % CD8 Cells Absolute CD19 Count T.pallidum Ab (FTA-ABS) HIV-1 RNA PCR copies/ml HIV-1 RNA (PCR) log Miscellaneous Test 10/03/18 10/03/18 10/04/18 11:45 13:23 01:40 WBC RBC Hgb Hct RDW Plt Count Seg Neuts % (Manual) Lymphocytes % (Manual) Monocytes % (Manual) Eosinophils % (Manual) Basophils % (Manual) Nucleated RBC % Seg Neutrophils # Man Abs Lymphs (Manual) Lymphocytes # (Manual) Basophils # (Manual) PT INR APTT Heparin Anti-Xa Level 1.34 H 0.26 L POC ABG pH POC ABG pCO2 POC ABG pO2 Sodium Potassium Chloride Carbon Dioxide BUN Creatinine Glucose POC Glucose Lactic Acid Calcium Phosphorus Magnesium 1.40 L Iron TIBC Ferritin AST ALT Total Creatine Kinase Total Protein Albumin Vitamin B12 Folate TSH Free T4 Urine WBC (Auto) Urine Creatinine Urine Chloride Urine Total Protein CSF VDRL Lymph Enumerat CD4/CD8 Absolute CD3 Count % CD4 Cells Absolute CD4 Count % CD8 Cells Absolute CD19 Count T.pallidum Ab (FTA-ABS) HIV-1 RNA PCR copies/ml HIV-1 RNA (PCR) log Miscellaneous Test 10/04/18 10/04/18 10/06/18 04:45 04:45 09:40 WBC 0.8 L* RBC 3.11 L Hgb 9.0 L Hct 27.4 L RDW 15.4 H Plt Count Seg Neuts % (Manual) Lymphocytes % (Manual) Monocytes % (Manual) Eosinophils % (Manual) Basophils % (Manual) Nucleated RBC % Seg Neutrophils # Man Abs Lymphs (Manual) Lymphocytes # (Manual) Basophils # (Manual) PT INR APTT Heparin Anti-Xa Level POC ABG pH POC ABG pCO2 POC ABG pO2 Sodium Potassium Chloride Carbon Dioxide BUN Creatinine 0.7 L Glucose POC Glucose Lactic Acid Calcium 7.5 L Phosphorus Magnesium Iron 35 L TIBC 157 L Ferritin AST ALT Total Creatine Kinase Total Protein Albumin Vitamin B12 Folate TSH Free T4 Urine WBC (Auto) Urine Creatinine Urine Chloride Urine Total Protein CSF VDRL Lymph Enumerat CD4/CD8 Absolute CD3 Count % CD4 Cells Absolute CD4 Count % CD8 Cells Absolute CD19 Count T.pallidum Ab (FTA-ABS) HIV-1 RNA PCR copies/ml HIV-1 RNA (PCR) log Miscellaneous Test 10/06/18 10/06/18 10/07/18 09:40 09:40 04:20 WBC 1.1 L* RBC 3.07 L Hgb 9.1 L Hct 27.3 L RDW 20.3 H Plt Count Seg Neuts % (Manual) Lymphocytes % (Manual) Monocytes % (Manual) Eosinophils % (Manual) Basophils % (Manual) Nucleated RBC % Seg Neutrophils # Man 0.7 L Abs Lymphs (Manual) Lymphocytes # (Manual) 0.3 L Basophils # (Manual) PT INR APTT Heparin Anti-Xa Level POC ABG pH POC ABG pCO2 POC ABG pO2 Sodium Potassium Chloride Carbon Dioxide BUN Creatinine Glucose POC Glucose Lactic Acid Calcium Phosphorus Magnesium Iron TIBC Ferritin 1126.0 H AST ALT Total Creatine Kinase Total Protein Albumin Vitamin B12 Folate 6.71 L TSH Free T4 Urine WBC (Auto) Urine Creatinine Urine Chloride Urine Total Protein CSF VDRL Lymph Enumerat CD4/CD8 Absolute CD3 Count % CD4 Cells Absolute CD4 Count % CD8 Cells Absolute CD19 Count T.pallidum Ab (FTA-ABS) HIV-1 RNA PCR copies/ml HIV-1 RNA (PCR) log Miscellaneous Test 10/07/18 10/07/18 10/09/18 04:20 15:38 04:20 WBC 1.1 L* RBC 3.35 L Hgb 9.9 L Hct 30.1 L RDW 21.4 H Plt Count Seg Neuts % (Manual) 19.0 L Lymphocytes % (Manual) 42.0 H Monocytes % (Manual) 18.0 H Eosinophils % (Manual) 15.0 H Basophils % (Manual) 2.0 H Nucleated RBC % Seg Neutrophils # Man 0.2 L Abs Lymphs (Manual) Lymphocytes # (Manual) 0.5 L Basophils # (Manual) PT INR APTT Heparin Anti-Xa Level POC ABG pH 7.516 H POC ABG pCO2 32.1 L POC ABG pO2 Sodium Potassium Chloride Carbon Dioxide BUN Creatinine 0.7 L Glucose POC Glucose Lactic Acid Calcium 7.9 L Phosphorus Magnesium Iron TIBC Ferritin AST ALT Total Creatine Kinase Total Protein 5.5 L Albumin 2.2 L Vitamin B12 Folate TSH Free T4 Urine WBC (Auto) Urine Creatinine Urine Chloride Urine Total Protein CSF VDRL Lymph Enumerat CD4/CD8 Absolute CD3 Count % CD4 Cells Absolute CD4 Count % CD8 Cells Absolute CD19 Count T.pallidum Ab (FTA-ABS) HIV-1 RNA PCR copies/ml HIV-1 RNA (PCR) log Miscellaneous Test 10/09/18 10/09/18 10/09/18 04:20 11:48 17:31 WBC RBC Hgb Hct RDW Plt Count Seg Neuts % (Manual) Lymphocytes % (Manual) Monocytes % (Manual) Eosinophils % (Manual) Basophils % (Manual) Nucleated RBC % Seg Neutrophils # Man Abs Lymphs (Manual) Lymphocytes # (Manual) Basophils # (Manual) PT INR APTT Heparin Anti-Xa Level POC ABG pH POC ABG pCO2 POC ABG pO2 Sodium Potassium 5.4 H Chloride Carbon Dioxide 21 L BUN 55 H 72 H Creatinine 3.8 H D 4.5 H Glucose 118 H POC Glucose 124 H Lactic Acid Calcium 8.3 L 8.2 L Phosphorus Magnesium Iron TIBC Ferritin AST ALT Total Creatine Kinase Total Protein Albumin Vitamin B12 Folate TSH Free T4 Urine WBC (Auto) Urine Creatinine Urine Chloride Urine Total Protein CSF VDRL Lymph Enumerat CD4/CD8 Absolute CD3 Count % CD4 Cells Absolute CD4 Count % CD8 Cells Absolute CD19 Count T.pallidum Ab (FTA-ABS) HIV-1 RNA PCR copies/ml HIV-1 RNA (PCR) log Miscellaneous Test 10/10/18 10/10/18 10/10/18 08:09 08:35 10:54 WBC 1.1 L* RBC 3.16 L Hgb 9.6 L Hct 28.8 L RDW 21.2 H Plt Count Seg Neuts % (Manual) 27.0 L Lymphocytes % (Manual) Monocytes % (Manual) 9.0 H Eosinophils % (Manual) 18.0 H Basophils % (Manual) 12.0 H Nucleated RBC % Seg Neutrophils # Man 0.3 L Abs Lymphs (Manual) Lymphocytes # (Manual) 0.3 L Basophils # (Manual) PT 16.0 H INR 1.20 H APTT Heparin Anti-Xa Level POC ABG pH POC ABG pCO2 POC ABG pO2 Sodium Potassium 5.5 H Chloride Carbon Dioxide 20 L BUN 83 H Creatinine 5.5 H Glucose 119 H POC Glucose Lactic Acid Calcium Phosphorus Magnesium Iron TIBC Ferritin AST ALT Total Creatine Kinase Total Protein Albumin Vitamin B12 Folate TSH Free T4 Urine WBC (Auto) Urine Creatinine Urine Chloride Urine Total Protein CSF VDRL Lymph Enumerat CD4/CD8 Absolute CD3 Count % CD4 Cells Absolute CD4 Count % CD8 Cells Absolute CD19 Count T.pallidum Ab (FTA-ABS) HIV-1 RNA PCR copies/ml HIV-1 RNA (PCR) log Miscellaneous Test 10/10/18 10/10/18 10/11/18 Unknown Unknown 05:20 WBC 1.2 L* RBC 2.89 L Hgb 8.7 L Hct 26.0 L RDW 20.1 H Plt Count Seg Neuts % (Manual) Lymphocytes % (Manual) 8.0 L Monocytes % (Manual) 12.0 H Eosinophils % (Manual) 24.0 H Basophils % (Manual) 4.0 H Nucleated RBC % Seg Neutrophils # Man 0.6 L Abs Lymphs (Manual) Lymphocytes # (Manual) 0.1 L Basophils # (Manual) PT INR APTT Heparin Anti-Xa Level POC ABG pH POC ABG pCO2 POC ABG pO2 Sodium Potassium Chloride Carbon Dioxide BUN Creatinine Glucose POC Glucose Lactic Acid Calcium Phosphorus Magnesium Iron TIBC Ferritin AST ALT Total Creatine Kinase Total Protein Albumin Vitamin B12 Folate TSH Free T4 Urine WBC (Auto) Urine Creatinine Urine Chloride Urine Total Protein CSF VDRL Reactive 1:2 H Lymph Enumerat CD4/CD8 Absolute CD3 Count % CD4 Cells Absolute CD4 Count % CD8 Cells Absolute CD19 Count T.pallidum Ab (FTA-ABS) HIV-1 RNA PCR copies/ml HIV-1 RNA (PCR) log Miscellaneous Test Flexitest 1 H 10/11/18 10/11/18 10/11/18 05:20 05:40 05:40 WBC RBC Hgb Hct RDW Plt Count Seg Neuts % (Manual) Lymphocytes % (Manual) Monocytes % (Manual) Eosinophils % (Manual) Basophils % (Manual) Nucleated RBC % Seg Neutrophils # Man Abs Lymphs (Manual) Lymphocytes # (Manual) Basophils # (Manual) PT INR APTT Heparin Anti-Xa Level POC ABG pH POC ABG pCO2 POC ABG pO2 Sodium Potassium Chloride Carbon Dioxide 20 L BUN 102 H Creatinine 6.7 H Glucose POC Glucose Lactic Acid Calcium 8.3 L Phosphorus Magnesium Iron TIBC Ferritin AST ALT Total Creatine Kinase Total Protein Albumin Vitamin B12 Folate TSH Free T4 Urine WBC (Auto) 8.0 H Urine Creatinine 57.5 H Urine Chloride 35.1 L Urine Total Protein 44 H CSF VDRL Lymph Enumerat CD4/CD8 Absolute CD3 Count % CD4 Cells Absolute CD4 Count % CD8 Cells Absolute CD19 Count T.pallidum Ab (FTA-ABS) HIV-1 RNA PCR copies/ml HIV-1 RNA (PCR) log Miscellaneous Test 10/11/18 10/12/18 10/12/18 16:41 03:30 03:30 WBC 0.9 L* RBC 2.78 L Hgb 8.3 L Hct 25.1 L RDW 19.9 H Plt Count Seg Neuts % (Manual) Lymphocytes % (Manual) Monocytes % (Manual) Eosinophils % (Manual) 20.0 H Basophils % (Manual) Nucleated RBC % Seg Neutrophils # Man 0.5 L Abs Lymphs (Manual) Lymphocytes # (Manual) 0.3 L Basophils # (Manual) PT INR APTT Heparin Anti-Xa Level POC ABG pH 7.318 L POC ABG pCO2 POC ABG pO2 Sodium Potassium Chloride Carbon Dioxide 18 L BUN 111 H Creatinine 7.3 H Glucose POC Glucose Lactic Acid Calcium 7.9 L Phosphorus Magnesium Iron TIBC Ferritin AST ALT Total Creatine Kinase Total Protein Albumin Vitamin B12 Folate TSH Free T4 Urine WBC (Auto) Urine Creatinine Urine Chloride Urine Total Protein CSF VDRL Lymph Enumerat CD4/CD8 Absolute CD3 Count % CD4 Cells Absolute CD4 Count % CD8 Cells Absolute CD19 Count T.pallidum Ab (FTA-ABS) HIV-1 RNA PCR copies/ml HIV-1 RNA (PCR) log Miscellaneous Test 10/12/18 10/13/18 10/13/18 13:30 04:00 04:05 WBC 1.0 L* RBC 2.68 L Hgb 8.1 L Hct 24.3 L RDW 19.7 H Plt Count Seg Neuts % (Manual) 36.7 L Lymphocytes % (Manual) Monocytes % (Manual) Eosinophils % (Manual) 16.7 H Basophils % (Manual) 16.7 H Nucleated RBC % Seg Neutrophils # Man 0.4 L Abs Lymphs (Manual) Lymphocytes # (Manual) 0.2 L Basophils # (Manual) 0.2 H PT INR APTT Heparin Anti-Xa Level POC ABG pH 7.336 L POC ABG pCO2 31.5 L POC ABG pO2 122 H Sodium Potassium Chloride Carbon Dioxide 17 L BUN 118 H Creatinine 7.8 H Glucose 102 H POC Glucose Lactic Acid Calcium 7.8 L Phosphorus Magnesium Iron TIBC Ferritin AST ALT Total Creatine Kinase Total Protein Albumin Vitamin B12 Folate TSH Free T4 Urine WBC (Auto) Urine Creatinine Urine Chloride Urine Total Protein CSF VDRL Lymph Enumerat CD4/CD8 Absolute CD3 Count % CD4 Cells Absolute CD4 Count % CD8 Cells Absolute CD19 Count T.pallidum Ab (FTA-ABS) HIV-1 RNA PCR copies/ml HIV-1 RNA (PCR) log Miscellaneous Test 10/13/18 10/14/18 10/14/18 18:44 00:01 05:20 WBC RBC Hgb Hct RDW Plt Count Seg Neuts % (Manual) Lymphocytes % (Manual) Monocytes % (Manual) Eosinophils % (Manual) Basophils % (Manual) Nucleated RBC % Seg Neutrophils # Man Abs Lymphs (Manual) Lymphocytes # (Manual) Basophils # (Manual) PT INR APTT Heparin Anti-Xa Level POC ABG pH POC ABG pCO2 POC ABG pO2 Sodium Potassium Chloride Carbon Dioxide BUN Creatinine Glucose POC Glucose 141 H 134 H 171 H Lactic Acid Calcium Phosphorus Magnesium Iron TIBC Ferritin AST ALT Total Creatine Kinase Total Protein Albumin Vitamin B12 Folate TSH Free T4 Urine WBC (Auto) Urine Creatinine Urine Chloride Urine Total Protein CSF VDRL Lymph Enumerat CD4/CD8 Absolute CD3 Count % CD4 Cells Absolute CD4 Count % CD8 Cells Absolute CD19 Count T.pallidum Ab (FTA-ABS) HIV-1 RNA PCR copies/ml HIV-1 RNA (PCR) log Miscellaneous Test 10/14/18 10/14/18 10/14/18 09:39 09:40 11:37 WBC RBC Hgb Hct RDW Plt Count Seg Neuts % (Manual) Lymphocytes % (Manual) Monocytes % (Manual) Eosinophils % (Manual) Basophils % (Manual) Nucleated RBC % Seg Neutrophils # Man Abs Lymphs (Manual) Lymphocytes # (Manual) Basophils # (Manual) PT INR APTT Heparin Anti-Xa Level POC ABG pH POC ABG pCO2 POC ABG pO2 Sodium 147 H Potassium 3.4 L Chloride 108.1 H Carbon Dioxide 16 L BUN 124 H Creatinine 6.7 H Glucose 144 H POC Glucose 164 H Lactic Acid Calcium 7.8 L Phosphorus 8.50 H Magnesium Iron TIBC Ferritin AST ALT Total Creatine Kinase Total Protein Albumin Vitamin B12 Folate TSH Free T4 Urine WBC (Auto) Urine Creatinine Urine Chloride Urine Total Protein CSF VDRL Lymph Enumerat CD4/CD8 Absolute CD3 Count % CD4 Cells Absolute CD4 Count % CD8 Cells Absolute CD19 Count T.pallidum Ab (FTA-ABS) HIV-1 RNA PCR copies/ml HIV-1 RNA (PCR) log Miscellaneous Test 10/14/18 10/14/18 10/15/18 Unknown Unknown 00:05 WBC 0.5 L* RBC 2.80 L Hgb 8.2 L Hct 25.2 L RDW 19.7 H Plt Count Seg Neuts % (Manual) Lymphocytes % (Manual) 10.0 L Monocytes % (Manual) Eosinophils % (Manual) 10.0 H Basophils % (Manual) Nucleated RBC % Seg Neutrophils # Man 0.4 L Abs Lymphs (Manual) Lymphocytes # (Manual) 0.1 L Basophils # (Manual) PT INR APTT Heparin Anti-Xa Level POC ABG pH POC ABG pCO2 POC ABG pO2 Sodium Potassium Chloride Carbon Dioxide 13 L BUN 126 H Creatinine 7.7 H Glucose 153 H POC Glucose 190 H Lactic Acid Calcium 7.8 L Phosphorus Magnesium Iron TIBC Ferritin AST ALT Total Creatine Kinase Total Protein Albumin Vitamin B12 Folate TSH Free T4 Urine WBC (Auto) Urine Creatinine Urine Chloride Urine Total Protein CSF VDRL Lymph Enumerat CD4/CD8 Absolute CD3 Count % CD4 Cells Absolute CD4 Count % CD8 Cells Absolute CD19 Count T.pallidum Ab (FTA-ABS) HIV-1 RNA PCR copies/ml HIV-1 RNA (PCR) log Miscellaneous Test 10/15/18 10/15/18 10/15/18 04:15 04:15 05:03 WBC 0.8 L* RBC 2.73 L Hgb 8.2 L Hct 24.4 L RDW 18.8 H Plt Count Seg Neuts % (Manual) Lymphocytes % (Manual) Monocytes % (Manual) Eosinophils % (Manual) Basophils % (Manual) Nucleated RBC % Seg Neutrophils # Man Abs Lymphs (Manual) Lymphocytes # (Manual) Basophils # (Manual) PT INR APTT Heparin Anti-Xa Level POC ABG pH POC ABG pCO2 POC ABG pO2 Sodium 148 H Potassium 2.9 L* Chloride 108.5 H Carbon Dioxide 17 L BUN 127 H Creatinine 6.1 H Glucose 154 H POC Glucose 170 H Lactic Acid Calcium 7.7 L Phosphorus Magnesium Iron TIBC Ferritin AST ALT Total Creatine Kinase Total Protein 6.0 L Albumin 2.3 L Vitamin B12 Folate TSH Free T4 Urine WBC (Auto) Urine Creatinine Urine Chloride Urine Total Protein CSF VDRL Lymph Enumerat CD4/CD8 Absolute CD3 Count % CD4 Cells Absolute CD4 Count % CD8 Cells Absolute CD19 Count T.pallidum Ab (FTA-ABS) HIV-1 RNA PCR copies/ml HIV-1 RNA (PCR) log Miscellaneous Test 10/15/18 10/15/18 10/15/18 12:23 17:42 17:49 WBC RBC Hgb Hct RDW Plt Count Seg Neuts % (Manual) Lymphocytes % (Manual) Monocytes % (Manual) Eosinophils % (Manual) Basophils % (Manual) Nucleated RBC % Seg Neutrophils # Man Abs Lymphs (Manual) Lymphocytes # (Manual) Basophils # (Manual) PT INR APTT Heparin Anti-Xa Level POC ABG pH POC ABG pCO2 POC ABG pO2 Sodium 146 H Potassium 3.0 L Chloride 109.4 H Carbon Dioxide 16 L BUN 124 H Creatinine 5.6 H Glucose 162 H POC Glucose 180 H 173 H Lactic Acid Calcium 7.5 L Phosphorus Magnesium Iron TIBC Ferritin AST ALT Total Creatine Kinase Total Protein Albumin Vitamin B12 Folate TSH Free T4 Urine WBC (Auto) Urine Creatinine Urine Chloride Urine Total Protein CSF VDRL Lymph Enumerat CD4/CD8 Absolute CD3 Count % CD4 Cells Absolute CD4 Count % CD8 Cells Absolute CD19 Count T.pallidum Ab (FTA-ABS) HIV-1 RNA PCR copies/ml HIV-1 RNA (PCR) log Miscellaneous Test 10/15/18 10/16/18 10/16/18 23:56 05:37 07:50 WBC 1.1 L* RBC 2.70 L Hgb 8.0 L Hct 24.4 L RDW 18.9 H Plt Count Seg Neuts % (Manual) Lymphocytes % (Manual) Monocytes % (Manual) 8.0 H Eosinophils % (Manual) Basophils % (Manual) Nucleated RBC % Seg Neutrophils # Man 0.7 L Abs Lymphs (Manual) Lymphocytes # (Manual) 0.2 L Basophils # (Manual) PT INR APTT Heparin Anti-Xa Level POC ABG pH POC ABG pCO2 POC ABG pO2 Sodium Potassium Chloride Carbon Dioxide BUN Creatinine Glucose POC Glucose 164 H 152 H Lactic Acid Calcium Phosphorus Magnesium Iron TIBC Ferritin AST ALT Total Creatine Kinase Total Protein Albumin Vitamin B12 Folate TSH Free T4 Urine WBC (Auto) Urine Creatinine Urine Chloride Urine Total Protein CSF VDRL Lymph Enumerat CD4/CD8 Absolute CD3 Count % CD4 Cells Absolute CD4 Count % CD8 Cells Absolute CD19 Count T.pallidum Ab (FTA-ABS) HIV-1 RNA PCR copies/ml HIV-1 RNA (PCR) log Miscellaneous Test 10/16/18 10/16/18 10/16/18 07:50 12:35 18:00 WBC RBC Hgb Hct RDW Plt Count Seg Neuts % (Manual) Lymphocytes % (Manual) Monocytes % (Manual) Eosinophils % (Manual) Basophils % (Manual) Nucleated RBC % Seg Neutrophils # Man Abs Lymphs (Manual) Lymphocytes # (Manual) Basophils # (Manual) PT INR APTT Heparin Anti-Xa Level POC ABG pH POC ABG pCO2 POC ABG pO2 Sodium 147 H Potassium 3.0 L Chloride Carbon Dioxide 15 L BUN 143 H Creatinine 6.2 H Glucose 182 H POC Glucose 122 H 160 H Lactic Acid Calcium 8.1 L Phosphorus Magnesium Iron TIBC Ferritin AST ALT Total Creatine Kinase Total Protein Albumin Vitamin B12 Folate TSH Free T4 Urine WBC (Auto) Urine Creatinine Urine Chloride Urine Total Protein CSF VDRL Lymph Enumerat CD4/CD8 Absolute CD3 Count % CD4 Cells Absolute CD4 Count % CD8 Cells Absolute CD19 Count T.pallidum Ab (FTA-ABS) HIV-1 RNA PCR copies/ml HIV-1 RNA (PCR) log Miscellaneous Test 10/16/18 10/17/18 23:32 05:03 WBC RBC Hgb Hct RDW Plt Count Seg Neuts % (Manual) Lymphocytes % (Manual) Monocytes % (Manual) Eosinophils % (Manual) Basophils % (Manual) Nucleated RBC % Seg Neutrophils # Man Abs Lymphs (Manual) Lymphocytes # (Manual) Basophils # (Manual) PT INR APTT Heparin Anti-Xa Level POC ABG pH POC ABG pCO2 POC ABG pO2 Sodium Potassium Chloride Carbon Dioxide BUN Creatinine Glucose POC Glucose 131 H 112 H Lactic Acid Calcium Phosphorus Magnesium Iron TIBC Ferritin AST ALT Total Creatine Kinase Total Protein Albumin Vitamin B12 Folate TSH Free T4 Urine WBC (Auto) Urine Creatinine Urine Chloride Urine Total Protein CSF VDRL Lymph Enumerat CD4/CD8 Absolute CD3 Count % CD4 Cells Absolute CD4 Count % CD8 Cells Absolute CD19 Count T.pallidum Ab (FTA-ABS) HIV-1 RNA PCR copies/ml HIV-1 RNA (PCR) log Miscellaneous Test Allied health notes reviewed: nursing
[2018-10-17] MEDS: KEPPRA PO SCH ×2 (09:45→21:54)
[2018-10-17] MEDS: LOPRESSOR PO SCH ×2 (09:45→21:55)
[2018-10-17] MEDS: CORDARONE PO SCH ×2 (09:45→21:55)
[2018-10-17] MEDS: DIFLUCAN PO SCH (09:46)
[2018-10-17] MEDS: FOLVITE PO SCH (09:46)
[2018-10-17] MEDS: MEPRON PO SCH ×2 (09:46→21:54)
[2018-10-17] MEDS: PEPCID PO SCH (09:46)
[2018-10-17] MEDS: VIREAD PO SCH (09:46)
[2018-10-17] MEDS: EMTRIVA PO SCH (09:47)
[2018-10-17] MEDS: SODIUM CHLORIDE FLUSH SYRINGE 10 ML IV SCH ×2 (09:47→21:56)
[2018-10-17] MEDS: CYTOVENE IV SCH (09:47)
[2018-10-17] MEDS: NACL 0.9% IV SCH (09:47)
--- NOTE | 2018-10-17 09:55 | Progress Note ---
Assessment and Plan Cultures: 09/11/2018 blood culture: no growth 09/13/2018 serum cryptococcus ag neg 09/14/2018 CSF cryptococcus ag neg 09/14/2018 stool Nona 09/15/2018 stool +Giardia ag 09/19/2018 CSF cryptococcus ag neg 09/21/2018 tracheal aspirate culture: Nona albicans 09/23/2018 blood culture: No growth 09/23/2018 Fungal blood culture: no growth thus far 10/09/2018 blood culture: No growth A/P: 33 y/o male with no PMH; admitted on 09/11/2018 due to 4 days-AMS/behavioral changes, nausea, vomiting, diarrhea, weight loss and cough: 1) Low grade fevers: resolved ? likely IRIS related (ART started on 09/30) versus NGT-associated sinusitis/mastoiditis. shock resolved. Completed 10 days of Ceftriaxone, off since 10/03/2018. On ganciclovir for disseminated CMV. On v anco/cefepime for sinusitis/mastoiditis. 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 WBC remains low could be from CMV v/s ganciclovir. Clinically better - CMV DNA PCR 09/16/2018 is 1,058,978, 6 log - CMV DNA PCR 09/26/2018 is 710K, 5.85 log - CMV DNA PCR 10/03/2018 is 262K, 5.4 log 3) Acute respiratory failure: still on the vent minimal settings, mainly due to mental status issues. PJP DFA negative. CXR stable without pneumonia. 4) Acute encephalopathy: slighltly better; possibly from neurosyphilis and CMV confirmed encephalitis v/s metabolic etiology. Of note, MRI did not show ventriculitis. CSF YAYO virus DNA PCR neg. Toxo IgG negative. He has received 20 days of Pen G IV and Ganciclovir with minimal improvement, still somnolent and nystagmus noted ? neurosyphilis treatement failure ? other etiologies like metabolic, CVA. Discussed with neuro Dr Nazario EEG x 2 no epileptic activity - "Up to 4 EEGs over several months may be needed to capture interictal epileptiform activity". - repeat LP 10/10/3018 WBC 10, RBC 22K (traumatic), glu 47, prot 84 from 194, VDRL reactive 1:2 - Seizures reported on 10/09-10/10 - CT head done showed mild atrophy. No acute intracranial abnormalities. Paranasal sinus disease and new opacification of multiple mastoid air cells on the right and a few on the left suggesting acute mastoiditis. - MRI brain repeat 10/10 significant bilateral mastoiditis, generalized brain atrophy and stable paranasal sinusitis - CSF CMV DNA PCR on 10/10/2018 is 43,564 4.6 log 5) Neurosyphilis: CSF VDRL positive, off Ceftriaxone and back on IV Penicillin completed 21 days 6) Diarrhea: likely due to Giardiasis as Giardia antigen positive in stool, in immunocompromised patient. Completed several days of Flagyl, stopped on . 7) Oral candidiasis: on fluconazole, will need to continue as prophylaxis till immune reconstitution. 8) A.fib: cardiology following. On Amiodarone. 9) HIV/AIDS: newly diagnosed. Risk factor is MSM behavior. CD4=4. VL=50,700. 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 We started him on Tenofovir, Emtricitabine + Dolutegravir on 09/30/2018, watch closely for IRIS. 10) Neutropenia: likely from HIV/CMV myelosuppression. Also probably worse from ganciclovir. r/o disseminated MAC, thus far cultures negative. 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 started on HD 12) NGT-associated sinusitis/mastoiditis, fully treated for 7 days. NGT changed to OGT. Recs: - Discussed in ICU rounds Dr Bangura and I both agree to consider PEG/trach as there is some neurologic improvement - continue IV Ganciclovir D26 at 5 mg/kg 3 times a week - renally adjusted again today, continue till CMV PCR is <200 - renal con board - all antibiotics are renally adjusted for CrCl < 10 - completed IV Penicillin G 24 million units daily for 21 days on 10/08/2018 - will repeat serum CMV DNA PCR today - continue atovaquone and azithromycin prophylaxis - continue fluconazole 200 mg daily PO as prophylaxis - continue HAART: Tenofovir, Emtricitabine + Dolutegravir watch closely for IRIS - renally adjusted today - monitor daily CBC, BMP - s/p neupogen 1 dose on 10/05/2018, hematology on board agree with additional Neupogen as needed from ID standpoint Overall prognosis poor/complex case Will follow Alayna Menendez MD Infectious Diseases [facility] ([facility]) M [phone] O [phone] Subjective Date of service: 10/17/18 Principal diagnosis: low wbc Interval history: Patient remains alert follows simple commands inconsistently, intubated on CPAP, open eyes, no fever ROS: unable to obtain Objective - Exam Narrative Exam: Constitutional: Intubated alert follows simple commands inconsistently open eyes in NAD Head, Ears, Nose: Normocephalic, atraumatic. External ears, nose normal Eyes: Conjunctivae/corneas clear. No icterus. No ptosis.no nystagmus Neck:no JVD, left anterior neck large hard nodule non tender Oral: ETT, OGT Cardiovascular: tachycardic Respiratory: distant BS GI: Soft, non-tender; bowel sounds normal. No peritoneal signs Musculoskeletal: No pedal edema, no cyanosis. Skin: No rash or abscess. Hem/Lymphatic: No palpable cervical or supraclavicular nodes. No lymphangitis Psych: alert Neurological: alert, moves right hand, squeezed his left hand upon request PICC line 2/6 HD femoral - Constitutional Vitals: Vital Signs Temp Pulse Resp BP Pulse Ox 98.0 F 91 H 16 135/76 96 10/17/18 08:00 10/17/18 09:45 10/17/18 09:00 10/17/18 09:45 10/17/18 09:00 Temperature -Last 24 Hours Temperature [Post-Procedure] 96.9 F Temperature [Post-Procedure] 97.3 F Temperature [Post-Procedure] 97.3 F Temperature 98.0 F Temperature 98.0 F Temperature 98.1 F Temperature 98 F Temperature 98.8 F Temperature 98.7 F Temperature 97.6 F Temperature 97.6 F Temperature 97.2 F - Labs CBC & Chem 7: 10/16/18 07:50 10/16/18 07:50 Labs: Abnormal lab results 10/16/18 10/16/18 10/16/18 Range/Units 12:35 18:00 23:32 POC Glucose 122 H 160 H 131 H (70-105) 03/04/19 Range/Units 05:03 POC Glucose 112 H (70-105)
[2018-10-17] MEDS: TIVICAY PO SCH (10:15)
[2018-10-17] MEDS ORDERED: NACL 0.9% 100 ML IV PRN (10:39)
--- NOTE | 2018-10-17 10:43 | Progress Note ---
Assessment and Plan - Patient Problems (1) Acute kidney failure with tubular necrosis Current Visit: Yes Status: Acute Plan to address problem: Acute tubular necrosis secondary to sepsis, initiated on HD on 10/16/18 tolerated well. Pt still with significant azotemia/volume overload, will cont HD on MWF schedule with target UF 1-2L as tolerated. Use 4K bath given persistent hypokalemia. avoid further nephrotoxins, incl. NSAIDs IV contrast as possible. (2) Sepsis Current Visit: Yes Status: Acute Plan to address problem: Continue AB per ID. 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 Continue treatment for both per the infectious disease. 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 Improved. Subjective Date of service: 10/17/18 Principal diagnosis: low wbc Interval history: Pt remains intubated, opening eyes spontaneously, not following commands Objective - Vital Signs Vital signs: Vital Signs - 12hr 10/16/18 10/16/18 10/16/18 23:00 23:09 23:46 Temperature 98 F Pulse Rate 84 86 Pulse Rate [ Bases] Pulse Rate [ Throughout] Respiratory 14 6 L Rate Respiratory Rate [Bases] Respiratory Rate [ Throughout] Blood Pressure 131/78 138/85 O2 Sat by Pulse 95 100 Oximetry 10/16/18 10/17/18 10/17/18 23:55 00:00 01:00 Temperature Pulse Rate 88 89 86 Pulse Rate [ Bases] Pulse Rate [ Throughout] Respiratory 16 21 18 Rate Respiratory Rate [Bases] Respiratory Rate [ Throughout] Blood Pressure 138/85 130/83 130/78 O2 Sat by Pulse 100 95 95 Oximetry 10/17/18 10/17/18 10/17/18 02:00 02:15 02:36 Temperature Pulse Rate 89 Pulse Rate [ Bases] Pulse Rate [ 86 Throughout] Respiratory 17 Rate Respiratory Rate [Bases] Respiratory 18 Rate [ Throughout] Blood Pressure 135/83 O2 Sat by Pulse 98 98 Oximetry 10/17/18 10/17/18 10/17/18 03:00 03:22 03:42 Temperature 98.1 F Pulse Rate 92 H 88 Pulse Rate [ Bases] Pulse Rate [ Throughout] Respiratory 15 6 L Rate Respiratory Rate [Bases] Respiratory Rate [ Throughout] Blood Pressure 123/72 O2 Sat by Pulse 95 98 Oximetry 10/17/18 10/17/18 10/17/18 04:00 05:00 06:00 Temperature Pulse Rate 92 H 90 Pulse Rate [ Bases] Pulse Rate [ Throughout] Respiratory 16 16 Rate Respiratory Rate [Bases] Respiratory Rate [ Throughout] Blood Pressure 133/78 132/78 141/81 O2 Sat by Pulse 96 97 93 Oximetry 10/17/18 10/17/18 10/17/18 06:15 07:00 07:13 Temperature Pulse Rate 86 89 Pulse Rate [ 89 Bases] Pulse Rate [ 90 Throughout] Respiratory 16 14 Rate Respiratory 15 Rate [Bases] Respiratory 18 Rate [ Throughout] Blood Pressure 132/78 118/82 O2 Sat by Pulse 98 99 Oximetry 10/17/18 10/17/18 10/17/18 07:47 08:00 09:00 Temperature 98.0 F Pulse Rate 93 H 92 H 93 H Pulse Rate [ Bases] Pulse Rate [ Throughout] Respiratory 15 19 16 Rate Respiratory Rate [Bases] Respiratory Rate [ Throughout] Blood Pressure 143/79 144/78 150/83 O2 Sat by Pulse 100 98 96 Oximetry 10/17/18 09:45 Temperature Pulse Rate 91 H Pulse Rate [ Bases] Pulse Rate [ Throughout] Respiratory Rate Respiratory Rate [Bases] Respiratory Rate [ Throughout] Blood Pressure 135/76 O2 Sat by Pulse Oximetry - General Appearance General appearance: appears stated age, chronically ill, intubated EENT: ATNC, PERRL, mucous membranes moist Neck: no JVD Respiratory: Present: Decreased Breath Sounds Cardiology: regular, S1S2 Gastrointestinal: normoactive bowel sounds Integumentary: no rash, other (2-3+ edema b/l LE ) Neurologic: confused, disoriented, other (intubated ) - Lab 10/16/18 07:50 10/16/18 07:50 Most recent lab results Calcium 8.1 mg/dL (8.4-10.2) L 10/16/18 07:50 Phosphorus 8.50 mg/dL (2.5-4.5) H 10/14/18 09:40 Magnesium 2.10 mg/dL (1.7-2.3) 10/14/18 09:40 Urine Creatinine 57.5 mg/dL (0.1-20.0) H 10/11/18 05:40 Urine Sodium 70 mmol/L 10/11/18 05:40 Urine Total Protein 44 mg/dL (5-11.8) H 10/11/18 05:40 Medications & Allergies - Medications Allergies/Adverse Reactions: Allergies No Known Allergies Allergy (Unverified 09/11/18 17:50) Home Medications: Home Medications Medication Instructions Recorded Confirmed Last Taken Type No Known Home Medications [No 10/02/18 10/02/18 Unknown History Reported Home Medications] Active Medications: Generic Name Dose Route Start Last Admin Trade Name Harpreet PRN Reason Stop Dose Admin Acetaminophen 650 mg 09/11/18 19:30 10/09/18 16:32 Tylenol PO 650 mg Q4H PRN Administration Pain MILD(1-3)/Fever >100.5/RIVERA Acetaminophen 650 mg 09/21/18 07:39 10/07/18 21:15 Tylenol ME 650 mg Q4H PRN Administration Fever >101 Albuterol 2.5 mg 09/11/18 19:30 09/16/18 06:09 Proventil IH 2.5 mg Q4HRT PRN Administration Shortness Of Breath Albuterol 2.5 mg 09/20/18 20:00 10/17/18 07:13 Proventil IH 2.5 mg Q6HRT GIA Administration Amiodarone HCl 200 mg 09/27/18 15:00 10/17/18 09:45 Cordarone PO 200 mg BID GIA Administration Lipase/Protease/Amylase 1 each 09/30/18 12:01 Abril Gibbs 10,500 Unit FEEDTUBE PRN PRN For Clogged Feeding Tube Atovaquone 750 mg 09/21/18 10:00 10/17/18 09:46 Mepron PO 750 mg BID GIA Administration Emtricitabine 200 mg 10/13/18 10:00 10/17/18 09:47 Emtriva PO 200 mg Q96H GIA Administration Famotidine 20 mg 10/10/18 10:00 10/17/18 09:46 Pepcid PO 20 mg DAILY GIA Administration Fluconazole 200 mg 10/05/18 12:00 10/17/18 09:46 Diflucan PO 200 mg QDAY GIA Administration Folic Acid 1 mg 10/07/18 10:00 10/17/18 09:46 Folvite PO 1 mg QDAY GIA Administration Glycopyrrolate 2 mg 10/07/18 18:00 10/17/18 05:35 Robinul PO 2 mg Q6HR GIA Administration Heparin Sodium (Porcine) 5,000 unit 10/05/18 14:00 10/17/18 05:34 Heparin SUB-Q 5,000 unit Q8HR GIA Administration Hydrophilic Ointment 1 applic 09/21/18 01:46 09/22/18 03:46 Vaseline Lip Therapy TP 1 applic Q2HR PRN Administration Dry Lips Ganciclovir Sodium 150 mg/ 250 mls @ 100 mls/hr 10/12/18 10:00 10/17/18 09:47 Sodium Chloride IV 100 mls/hr MoWeFr GIA Administration Sodium Chloride 100 mls @ 999 mls/hr 10/15/18 12:33 Nacl 0.9% IV CHERYL PRN Hypotension Levetiracetam 750 mg 10/12/18 22:00 10/17/18 09:45 Keppra PO 750 mg BID GIA Administration Levothyroxine Sodium 25 mcg 09/19/18 06:00 10/17/18 08:34 Synthroid PO Not Given DAILY@0600 [facility] Metoprolol Tartrate 12.5 mg 10/10/18 13:00 10/17/18 09:45 Lopressor PO 12.5 mg BID [facility] Administration Multi-Ingred Cream/Lotion/Oil/Oint 1 applic 09/21/18 01:46 Artificial Tears Ophth Oint OU Q4HR PRN Dry Eye(s) Ondansetron HCl 4 mg 09/11/18 19:30 Zofran IV Q8H PRN Nausea And Vomiting Scopolamine 1 each 09/18/18 18:00 10/15/18 17:25 Transderm-Scop TD 1 each Q3D GIA Administration Simple Syrup 15 ml 09/30/18 12:01 10/07/18 06:18 Simple Syrup FEEDTUBE 15 ml PRN PRN Administration Hypoglycemia Simple Syrup 15 ml 10/15/18 10:45 Simple Syrup FEEDTUBE PRN PRN Hypoglycemia Simple Syrup 30 ml 10/15/18 10:45 Simple Syrup FEEDTUBE PRN PRN Hypoglycemia Sodium Bicarbonate 325 mg 10/15/18 10:45 Sodium Bicarbonate FEEDTUBE PRN PRN For Clogged Feeding Tube Sodium Chloride 10 ml 09/11/18 22:00 10/17/18 09:47 Sodium Chloride Flush Syringe 10 Ml IV 10 ml BID GIA Administration Sodium Chloride 10 ml 09/11/18 19:30 Sodium Chloride Flush Syringe 10 Ml IV PRN PRN LINE FLUSH Tenofovir Disoproxil Fumarate 300 mg 10/13/18 10:00 10/17/18 09:46 Viread PO 300 mg Q96H GIA Administration
--- NOTE | 2018-10-17 16:09 | Progress Note ---
Assessment and Plan Assessment and plan: : Patient is 33 yo initially presented with diarrhea, found to have pneumonia, sepsis, HIV/AIDS(new diagnosis) with CD4 count of 4. He was started on abx for PJP. His mental status has worsened with confusion, lethargy. LP done . He was diagnosed with neurosyphilis. Started on Penicillin. Closest family is sister in [place], and dr. Baltazar spoke to her several times about diagnosis but did not tell her about HIV/AIDS because of patient confidentiality. The patient decompensated on 09/20/18 with acute hypoxemic respiratory failure and worsening toxic metabolic encephalopathy requiring transfer to ICU and intubation. He now remains on mechanical ventilation. The patient was also noted to develop SVT requiring amiodarone drip as well as heparin drip. Severe Sepsis. Etiology secondary to bacterial pneumonia +/- gastroenteritis with newly diagnosed with HIV. Fevers have re-emerged. Repeat blood cx per ID. ARF - Patient's creatinine level is trending up - nephrology is following and he started on hemodialysis today Acute hypoxemic respiratory failure - Patient has pneumonia and altered mental status - Patient is intubated and on mechanical ventilation - Pulmonary is following Disseminated CMV viremia: -Treated with IV ganciclovir and currently he is on prophylaxis Toxic metabolic encephalopathy. 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 Of note, MRI did not show ventriculitis. Neurology evaluation. - Patient showed improvement follows simple commands A. fib with RVR. Converted to NSR. cont Amiodarone and metoprolol. Rate controlled Neurosyphilis: CSF VDRL positive, patient finished a course of IV penicillin 21 days Diarrhea. Resolved, etiology likely secondary to Giardia. Giardia antigen positive in stool. Completed a course of Flagyl. Oral candidiasis. Fluconazole HIV/AIDS. New Diagnosis. Started on HAART on 09/30, Tenofovir, Emtricitabine + Dolutegravir watch closely for IRIS continue atovaquone and azithromycin prophylaxis Neutropenia. 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 Also probably worse from ganciclovir. r/o disseminated MAC, thus far cultures negative. WBC count this morning was 0.5, progressively declining. Hematology saw him and continue granix. Prognosis poor. Sister hold off Trach and PEG. I have a long discussion with his sister on the phone. she had a Discussion with multiple doctors and explain everything but she said nobody explain what is going on. I personally discussed with her on the phone for 30 minutes and 16 minutes this morning and despite that she wants specific information about the prognosis, how long is going to be PEG and trach which are difficult to tell exactly but explained the prognosis in general. The high probability of a clinically significant, sudden or life threatening deterioration of the [neurological, respiratory and cardiac] system(s) required my full and direct attention, intervention and personal management. The aggregate critical care time was [31] minutes. This time is in addition to time spent performing reported procedures but includes the following: [x] Data Review and interpretation [x] Patient assessment and monitoring of vital signs [x] Documentation [x] Medication orders and management History Interval history: Patient was seen and evaluated this morning, no fever overnight, patient is intubated and on mechanical ventilation. Spontaneous eye opening. Hospitalist Physical - Physical exam Narrative exam: Patient is intubated and on mechanical ventilation. The patient is obese. Vital signs as documented. Head exam is unremarkable. No scleral icterus . Neck is without jugular venous distension, thyromegaly, or carotid bruits. Lungs are clear to auscultation. Cardiac exam reveals regular rate and Rhythm. First and second heart sounds normal. No murmurs, rubs or gallops. Abdominal exam reveals normal bowel sounds, no masses, no organomegaly and no aortic enlargement. Extremities are nonedematous and both femoral and pedal pulses are normal. ORDER ENTRY: Open his eyes. Follow simple commands. - Constitutional Vitals: Temp Pulse Resp BP Pulse Ox 96.2 F L 86 18 119/81 99 10/17/18 12:00 10/17/18 14:00 10/17/18 14:00 10/17/18 14:00 10/17/18 14:00 General appearance: Present: mild distress, other (orally intubated, minimal response--right side spontaneous movement) Results - Labs CBC & Chem 7: 10/16/18 07:50 10/16/18 07:50 Labs: Laboratory Last Values WBC 1.1 K/mm3 (4.5-11.0) L* 10/16/18 07:50 RBC 2.70 M/mm3 (3.65-5.03) L 10/16/18 07:50 Hgb 8.0 gm/dl (11.8-15.2) L 10/16/18 07:50 Hct 24.4 % (35.5-45.6) L 10/16/18 07:50 MCV 90 fl (84-94) 10/16/18 07:50 MCH 30 pg (28-32) 10/16/18 07:50 MCHC 33 % (32-34) 10/16/18 07:50 RDW 18.9 % (13.2-15.2) H 10/16/18 07:50 Plt Count 208 K/mm3 (140-440) 10/16/18 07:50 [place] % (Auto) Psychological Science Professor 09/29/18 05:00 Eos % (Auto) Psychological Science Professor 10/13/18 04:05 Baso % (Auto) Psychological Science Professor 10/13/18 04:05 Add Manual Diff Complete 10/16/18 07:50 Total Counted 50 10/16/18 07:50 Seg Neutrophils % Psychological Science Professor 10/16/18 07:50 Seg Neuts % (Manual) 60.0 % (40.0-70.0) 10/16/18 07:50 Band Neutrophils % 18.0 % 10/16/18 07:50 Lymphocytes % (Manual) 14.0 % (13.4-35.0) 10/16/18 07:50 Reactive Lymphs % (Man) 0 % 10/16/18 07:50 Monocytes % (Manual) 8.0 % (0.0-7.3) H 10/16/18 07:50 Eosinophils % (Manual) 0 % (0.0-4.3) 10/16/18 07:50 Basophils % (Manual) 0 % (0.0-1.8) 10/16/18 07:50 Metamyelocytes % 0 % 10/16/18 07:50 Myelocytes % 0 % 10/16/18 07:50 Promyelocytes % 0 % 10/16/18 07:50 Blast Cells % 0 % 10/16/18 07:50 Nucleated RBC % Not Reportable 10/16/18 07:50 Seg Neutrophils # Man 0.7 K/mm3 (1.8-7.7) L 10/16/18 07:50 Band Neutrophils # 0.2 K/mm3 10/16/18 07:50 Abs Lymphs (Manual) 309 cells/uL (850-3900) L 09/13/18 12:29 Lymphocytes # (Manual) 0.2 K/mm3 (1.2-5.4) L 10/16/18 07:50 Abs React Lymphs (Man) 0.0 K/mm3 10/16/18 07:50 Monocytes # (Manual) 0.1 K/mm3 (0.0-0.8) 10/16/18 07:50 Eosinophils # (Manual) 0.0 K/mm3 (0.0-0.4) 10/16/18 07:50 Basophils # (Manual) 0.0 K/mm3 (0.0-0.1) 10/16/18 07:50 Metamyelocytes # 0.0 K/mm3 10/16/18 07:50 Myelocytes # 0.0 K/mm3 10/16/18 07:50 Promyelocytes # 0.0 K/mm3 10/16/18 07:50 Blast Cells # 0.0 K/mm3 10/16/18 07:50 WBC Morphology Not Reportable 10/16/18 07:50 Hypersegmented Neuts Not Reportable 10/16/18 07:50 Hyposegmented Neuts Not Reportable 10/16/18 07:50 Hypogranular Neuts Not Reportable 10/16/18 07:50 Smudge Cells Not Reportable 10/16/18 07:50 Toxic Granulation Not Reportable 10/16/18 07:50 Toxic Vacuolation Not Reportable 10/16/18 07:50 Dohle Bodies Not Reportable 10/16/18 07:50 Pelger-Huet Anomaly Not Reportable 10/16/18 07:50 Giovanna Rods Not Reportable 10/16/18 07:50 Platelet Estimate Not Reportable 10/16/18 07:50 Clumped Platelets Not Reportable 10/16/18 07:50 Plt Clumps, EDTA Not Reportable 10/16/18 07:50 Large Platelets Not Reportable 10/16/18 07:50 Giant Platelets Not Reportable 10/16/18 07:50 Platelet Satelliting Not Reportable 10/16/18 07:50 Plt Morphology Comment Not Reportable 10/16/18 07:50 RBC Morphology Not Reportable 10/16/18 07:50 Dimorphic RBCs Not Reportable 10/16/18 07:50 Polychromasia Not Reportable 10/16/18 07:50 Hypochromasia Not Reportable 10/16/18 07:50 Poikilocytosis 1+ 10/16/18 07:50 Anisocytosis 1+ 10/16/18 07:50 Microcytosis Not Reportable 10/16/18 07:50 Macrocytosis Not Reportable 10/16/18 07:50 Spherocytes Not Reportable 10/16/18 07:50 Pappenheimer Bodies Not Reportable 10/16/18 07:50 Sickle Cells Not Reportable 10/16/18 07:50 Target Cells Not Reportable 10/16/18 07:50 Tear Drop Cells Not Reportable 10/16/18 07:50 Ovalocytes Not Reportable 10/16/18 07:50 Stomatocytes 1+ 09/29/18 05:00 Helmet Cells Not Reportable 10/16/18 07:50 P[place] Bodies Not Reportable 10/16/18 07:50 P[place] Rings Not Reportable 10/16/18 07:50 Dioni Cells Not Reportable 10/16/18 07:50 Bite Cells Not Reportable 10/16/18 07:50 Crenated Cell Not Reportable 10/16/18 07:50 Elliptocytes Not Reportable 10/16/18 07:50 Acanthocytes (Spur) Not Reportable 10/16/18 07:50 Rouleaux Not Reportable 10/16/18 07:50 Hemoglobin C Crystals Not Reportable 10/16/18 07:50 Schistocytes Not Reportable 10/16/18 07:50 Malaria parasites Not Reportable 10/16/18 07:50 Kieran Bodies Not Reportable 10/16/18 07:50 Hem Pathologist Commnt No 10/16/18 07:50 PT 16.0 Sec. (12.2-14.9) H 10/10/18 08:09 INR 1.20 (0.87-1.13) H 10/10/18 08:09 APTT 40.9 Sec. (24.2-36.6) H 09/21/18 15:00 Heparin Anti-Xa Level 0.35 U.I./ml (0.3-0.7) 10/05/18 10:19 POC ABG pH 7.336 (7.35-7.45) L 10/12/18 13:30 POC ABG pCO2 31.5 (35-45) L 10/12/18 13:30 POC ABG pO2 122 (80-105) H 10/12/18 13:30 POC ABG HCO3 16.8 10/12/18 13:30 POC ABG Total CO2 18 10/12/18 13:30 POC ABG O2 Sat 99 10/12/18 13:30 POC ABG Base Excess -9 10/12/18 13:30 FiO2 25 % 10/12/18 13:30 Sodium 147 mmol/L (137-145) H 10/16/18 07:50 Potassium 3.0 mmol/L (3.6-5.0) L 10/16/18 07:50 Chloride 106.9 mmol/L (98-107) 10/16/18 07:50 Carbon Dioxide 15 mmol/L (22-30) L 10/16/18 07:50 Anion Gap 28 mmol/L 10/16/18 07:50 BUN 143 mg/dL (9-20) H 10/16/18 07:50 Creatinine 6.2 mg/dL (0.8-1.5) H 10/16/18 07:50 Estimated GFR 13 ml/min 10/16/18 07:50 BUN/Creatinine Ratio 23 % 10/16/18 07:50 Glucose 182 mg/dL (75-100) H 10/16/18 07:50 POC Glucose 149 (70-105) H 10/17/18 11:32 Lactic Acid 0.90 mmol/L (0.7-2.0) 09/11/18 20:17 Calcium 8.1 mg/dL (8.4-10.2) L 10/16/18 07:50 Phosphorus 8.50 mg/dL (2.5-4.5) H 10/14/18 09:40 Magnesium 2.10 mg/dL (1.7-2.3) 10/14/18 09:40 Iron 35 ug/dL (49-181) L 10/06/18 09:40 TIBC 157 mcg/dL (250-450) L 10/06/18 09:40 Ferritin 1126.0 ng/mL (13.0-400.0) H 10/06/18 09:40 Total Bilirubin < 0.20 mg/dL (0.1-1.2) 10/15/18 04:15 Direct Bilirubin < 0.2 mg/dL (0-0.2) 09/13/18 07:31 AST 36 units/L (5-40) 10/15/18 04:15 ALT 32 units/L (7-56) 10/15/18 04:15 Alkaline Phosphatase 66 units/L (35-129) 10/15/18 04:15 Ammonia 27.0 umol/L (25-60) 10/03/18 13:23 Total Creatine Kinase 113 units/L (55-170) 10/11/18 05:20 CK-MB (CK-2) 2.6 ng/mL (0.0-4.0) 10/11/18 05:20 CK-MB (CK-2) Rel Index 0.5 (0-4) 09/21/18 04:25 NT-Pro-B Natriuret Pep 145.9 pg/mL (0-450) 09/18/18 16:07 Total Protein 6.0 g/dL (6.3-8.2) L 10/15/18 04:15 Albumin 2.3 g/dL (3.9-5) L 10/15/18 04:15 Albumin/Globulin Ratio 0.6 % 10/15/18 04:15 Vitamin B12 934.5 pg/mL (211-911) H 09/16/18 11:41 Folate 6.71 ng/mL (7.3-26.0) L 10/06/18 09:40 TSH 5.190 mlU/mL (0.270-4.200) H 09/18/18 12:46 Free T4 0.75 ng/dL (0.76-1.46) L 09/18/18 12:46 Urine Color Yellow (Yellow) 10/11/18 05:40 Urine Turbidity Slightly-cloudy (Clear) 10/11/18 05:40 Urine pH 5.0 (5.0-7.0) 10/11/18 05:40 Ur Specific Ferney 1.012 (1.003-1.030) 10/11/18 05:40 Urine Protein 30 mg/dl mg/dL (Negative) 10/11/18 05:40 Urine Glucose (UA) Neg mg/dL (Negative) 10/11/18 05:40 Urine Ketones Neg mg/dL (Negative) 10/11/18 05:40 Urine Blood Mod (Negative) 10/11/18 05:40 Urine Nitrite Neg (Negative) 10/11/18 05:40 Urine Bilirubin Neg (Negative) 10/11/18 05:40 Urine Urobilinogen < 2.0 mg/dL (<2.0) 10/11/18 05:40 Ur Leukocyte Esterase Neg (Negative) 10/11/18 05:40 Urine WBC (Auto) 8.0 /HPF (0.0-6.0) H 10/11/18 05:40 Urine RBC (Auto) 45.0 /HPF (0.0-6.0) 10/11/18 05:40 U Epithel Cells (Auto) 2.0 /HPF (0-13.0) 10/11/18 05:40 Urine Bacteria (Auto) 1+ /HPF (Negative) 10/11/18 05:40 Urine Mucus Few /HPF 10/11/18 05:40 Urine Creatinine 57.5 mg/dL (0.1-20.0) H 10/11/18 05:40 Protein/Creatinin Ratio 0.77 10/11/18 05:40 Urine Sodium 70 mmol/L 10/11/18 05:40 Urine Chloride 35.1 mmolL (110-250) L 10/11/18 05:40 Urine Total Protein 44 mg/dL (5-11.8) H 10/11/18 05:40 CSF Appearance Bloody 10/10/18 Unknown CSF Color Red 10/10/18 Unknown CSF WBC 10 /mm3 (1-10) 10/10/18 Unknown CSF RBC 05326 /mm3 (0-0) 10/10/18 Unknown CSF Seg Neutrophils 14.0 % (0-6) 10/10/18 Unknown CSF Lymphocytes % 44.0 % (40-80) 10/10/18 Unknown CSF Reactive Lymphs 0 % 10/10/18 Unknown CSF Monocytes % 38.0 % (15-45) 10/10/18 Unknown CSF Eosinophils % 4.0 % 10/10/18 Unknown CSF Basophils 0 % 10/10/18 Unknown CSF Pathologist Review C 10/10/18 Unknown CSF Glucose 47 mg/dL 10/10/18 Unknown CSF Total Protein 84 mg/dL 10/10/18 Unknown CSF VDRL Reactive 1:2 (Nonreactive) H 10/10/18 Unknown Vancomycin Trough 14.3 ug/mL (5.0-20.0) 09/25/18 14:45 Random Vancomycin 10.7 ug/mL (0-40.0) 10/12/18 03:30 Urine Opiates Screen Presumptive negative 09/17/18 15:52 Urine Methadone Screen Presumptive negative 09/17/18 15:52 Ur Barbiturates Screen Presumptive negative 09/17/18 15:52 Ur Phencyclidine Scrn Presumptive negative 09/17/18 15:52 Ur Amphetamines Screen Presumptive negative 09/17/18 15:52 U Benzodiazepines Scrn Presumptive negative 09/17/18 15:52 Urine Cocaine Screen Presumptive negative 09/17/18 15:52 U Marijuana (THC) Screen Presumptive negative 09/17/18 15:52 Drugs of Abuse Note Disclamer 09/17/18 15:52 Complement C3 184 mg/dL (82-185) 10/12/18 09:46 Complement C4 45 mg/dL (15-53) 10/12/18 09:46 Lymph Enumerat CD4/CD8 0.01 (0.86-5.00) L 09/13/18 12:29 % CD3 Cells 71 % (57-85) 09/13/18 12:29 Absolute CD3 Count 220 cells/uL (840-3060) L 09/13/18 12:29 % CD4 Cells 1 % (30-61) L 09/13/18 12:29 Absolute CD4 Count 4 cells/uL (490-1740) L 09/13/18 12:29 % CD8 Cells 70 % (12-42) H 09/13/18 12:29 Absolute CD8 Count 216 cells/uL (180-1170) 09/13/18 12:29 % CD19 Cells 17 % (6-29) 09/13/18 12:29 Absolute CD19 Count 54 cells/uL (110-660) L 09/13/18 12:29 RPR Titer 1:16 09/13/18 12:29 RPR Reactive (Nonreactive) 09/13/18 12:29 T.pallidum Ab (FTA-ABS) Reactive (Nonreactive) H 09/14/18 16:34 C. difficile Toxin A&B Negative (Negative) 09/12/18 05:30 CMV DNA PCR log coper hand/mL See scanned results 10/03/18 06:12 Hepatitis A IgM Ab Non-reactive (NonReactive) 09/13/18 12:29 Hep Bs Antigen Non-reactive (Negative) 09/13/18 12:29 Hep B Core IgM Ab Non-reactive (NonReactive) 09/13/18 12:29 Hepatitis C Antibody Non-reactive (NonReactive) 09/13/18 12:29 HIV-1 Antibody See scanned result 09/11/18 19:14 HIV-1 RNA PCR copies/ml 93670 Copies/mL H 09/13/18 12:29 HIV-1 RNA (PCR) log 4.71 Log cps/mL H 09/13/18 12:29 HIV-2 Ab (Immunoblot) See scanned result 09/11/18 19:14 HIV 1&2 Antibody Rapid Reactive (Non React) 09/11/18 19:14 HIV P24 Antigen Non react (Non React) 09/11/18 19:14 Influenza A (Rapid) Negative (Negative) 09/13/18 16:05 Influenza A (RT-PCR) Negative (Negative) 09/13/18 16:05 Influenza B (Rapid) Negative (Negative) 09/13/18 16:05 Influenza B (RT-PCR) Negative (Negative) 09/13/18 16:05 Toxoplasma IgG Ab <7.20 IU/mL (<7.20) 09/16/18 12:09 Miscellaneous Test Flexitest 1 H 10/10/18 Unknown Nutrition/Malnutrition Assess - Dietary Evaluation Nutrition/Malnutrition Findings: Nutrition Notes Start: 09/12/18 17:45 Freq: Status: Active Protocol: Document 10/16/18 09:48 LP (Rec: 10/16/18 09:51 LP [id number]) Nutrition Notes Need for Assessment generated from: MD Order Initial or Follow up Brief Note Current Diet TF- Vital High Protein at 70ml /hr Subjective/Other Information Consult for TF. TF to be changed due to worsening renal function. Nutrition Intervention Nutrition Support: Vital 1.2 at 60ml/hr Flush with 100ml q4h Kcal 1,728 Protein (gm) 108 Fluid (mL) 1,203 Follow-Up By: 10/18/18 Additional Comments Follow for TF change and tolerance
[2018-10-18] MEDS: ROBINUL PO SCH ×5 (01:09→23:22)
[2018-10-18] MEDS: PROVENTIL IH SCH ×4 (03:19→19:21)
[2018-10-18] MEDS: HEPARIN SUB-Q SCH ×3 (05:20→21:49)
--- NOTE | 2018-10-18 07:53 | Hem/Onc Progress Note ---
Assessment and Plan 1. Leukopenia. ANC is 0.5. Neutropenic precaution is practical. 2. Anemia. We will investigate. 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 HAART has been started. At this time, there is no fever. 3. Human immunodeficiency virus, on HAART. 4. 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 5. Intubated. 6. On antibiotics for pneumonia. 7. History of ____ that is improved. 8. Looks at you, but does not communicate. 9. History of oral candidiasis. 10. Mention of giardiasis. 11. Encephalopathy. 12. RVR with atrial fibrillation. I will follow the patient during inpatient stay. At this time, his cytopenia is likely secondary to the HIV or the CMV. I will discuss with ID team to see if G-CSF support is an option. 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 - nephrology 10/12 - trach - peg not done - as family deciding the GCSF - did not change the WBC 10/13 - wbc 1 - opens eye - non communicative 10/14 - pt moves rt arm - eyes open still on vent - as per info - family is thinking about PEG - trach - they have not consented granix trial for low wbc 10/15 - gcsf trial - poor prognosis due to performance status 10/16 - dialysis cath wbc low - gCSF 10/17 - wbc still low - poor prognosis - ct folic acid for anemia 10/18 - not much improvement - last cbc on 10/16 - Patient Problems (1) Neutropenia Current Visit: Yes Status: Acute Subjective Date of service: 10/18/18 Principal diagnosis: low wbc Interval history: no bleeding Objective - Exam Narrative Exam: on vent - Constitutional Vitals: Last Vital Signs Temp 98.3 F 10/18/18 07:30 Pulse 90 10/18/18 07:37 Resp 18 10/18/18 07:37 BP 153/94 10/18/18 07:35 Pulse Ox 99 10/18/18 07:35 Performance status: 4-completely disabled - EENT ENT: other (on vent) Lymph node exam: negative cervical - Respiratory Respiratory: bilateral: diminished (on vent - obese) - Cardiovascular Heart Sounds: Present: S1 & S2 Extremity abnormal: edema - Gastrointestinal General gastrointestinal: Present: soft, non-tender Rectal Exam: deferred - Genitourinary Male genitourinary: Present: deferred - Integumentary Integumentary: warm - Neurologic Neurologic: other (moves rt arm - yes) - Labs Lab Results: Laboratory Results - last 24 hr 10/17/18 10/17/18 10/18/18 11:32 17:23 00:02 POC Glucose 149 H 98 90 10/18/18 05:09 POC Glucose 89 Medications & Allergies - Medications Allergies/Adverse Reactions: Allergies No Known Allergies Allergy (Unverified 09/11/18 17:50) Home Medications: Home Medications Medication Instructions Recorded Confirmed Last Taken Type No Known Home Medications [No 10/02/18 10/02/18 Unknown History Reported Home Medications] Active Medications: Generic Name Dose Route Start Last Admin Trade Name Freq PRN Reason Stop Dose Admin Acetaminophen 650 mg 09/11/18 19:30 10/09/18 16:32 Tylenol PO 650 mg Q4H PRN Administration Pain MILD(1-3)/Fever >100.5/RIVERA Acetaminophen 650 mg 09/21/18 07:39 10/07/18 21:15 Tylenol VT 650 mg Q4H PRN Administration Fever >101 Albuterol 2.5 mg 09/11/18 19:30 09/16/18 06:09 Proventil IH 2.5 mg Q4HRT PRN Administration Shortness Of Breath Albuterol 2.5 mg 09/20/18 20:00 10/18/18 07:37 Proventil IH 2.5 mg Q6HRT GIA Administration Amiodarone HCl 200 mg 09/27/18 15:00 10/17/18 21:55 Cordarone PO 200 mg BID GIA Administration Lipase/Protease/Amylase 1 each 09/30/18 12:01 Pancrealen Gibbs 10,500 Unit FEEDTUBE PRN PRN For Clogged Feeding Tube Atovaquone 750 mg 09/21/18 10:00 10/17/18 21:54 Mepron PO 750 mg BID GIA Administration Azithromycin 1,200 mg 10/18/18 10:00 Zithromax PO Tu GIA Emtricitabine 200 mg 10/13/18 10:00 10/17/18 09:47 Emtriva PO 200 mg Q96H GIA Administration Famotidine 20 mg 10/10/18 10:00 10/17/18 09:46 Pepcid PO 20 mg DAILY GIA Administration Fluconazole 200 mg 10/05/18 12:00 10/17/18 09:46 Diflucan PO 200 mg QDAY GIA Administration Folic Acid 1 mg 10/07/18 10:00 10/17/18 09:46 Folvite PO 1 mg QDAY GIA Administration Glycopyrrolate 2 mg 10/07/18 18:00 10/18/18 05:18 Robinul PO 2 mg Q6HR GIA Administration Heparin Sodium (Porcine) 5,000 unit 10/05/18 14:00 10/18/18 05:20 Heparin SUB-Q 5,000 unit Q8HR GIA Administration Hydrophilic Ointment 1 applic 09/21/18 01:46 09/22/18 03:46 Vaseline Lip Therapy TP 1 applic Q2HR PRN Administration Dry Lips Ganciclovir Sodium 150 mg/ 250 mls @ 100 mls/hr 10/12/18 10:00 10/17/18 09:47 Sodium Chloride IV 100 mls/hr MoWeFr GIA Administration Sodium Chloride 100 mls @ 999 mls/hr 10/15/18 12:33 Nacl 0.9% IV CHERYL PRN Hypotension Sodium Chloride 100 mls @ 999 mls/hr 10/17/18 10:39 Nacl 0.9% IV CHERYL PRN Hypotension Levetiracetam 750 mg 10/12/18 22:00 10/17/18 21:54 Keppra PO 750 mg BID [facility] Administration Levothyroxine Sodium 25 mcg 09/19/18 06:00 10/17/18 08:34 Synthroid PO Not Given DAILY@0600 [facility] Metoprolol Tartrate 12.5 mg 10/10/18 13:00 10/17/18 21:55 Lopressor PO 12.5 mg BID GIA Administration Multi-Ingred Cream/Lotion/Oil/Oint 1 applic 09/21/18 01:46 Artificial Tears Ophth Oint OU Q4HR PRN Dry Eye(s) Ondansetron HCl 4 mg 09/11/18 19:30 Zofran IV Q8H PRN Nausea And Vomiting Scopolamine 1 each 09/18/18 18:00 10/15/18 17:25 Transderm-Scop TD 1 each Q3D GIA Administration Simple Syrup 15 ml 09/30/18 12:01 10/07/18 06:18 Simple Syrup FEEDTUBE 15 ml PRN PRN Administration Hypoglycemia Simple Syrup 15 ml 10/15/18 10:45 Simple Syrup FEEDTUBE PRN PRN Hypoglycemia Simple Syrup 30 ml 10/15/18 10:45 Simple Syrup FEEDTUBE PRN PRN Hypoglycemia Sodium Bicarbonate 325 mg 10/15/18 10:45 Sodium Bicarbonate FEEDTUBE PRN PRN For Clogged Feeding Tube Sodium Chloride 10 ml 09/11/18 22:00 10/17/18 21:56 Sodium Chloride Flush Syringe 10 Ml IV 10 ml BID GIA Administration Sodium Chloride 10 ml 09/11/18 19:30 Sodium Chloride Flush Syringe 10 Ml IV PRN PRN LINE FLUSH Tenofovir Disoproxil Fumarate 300 mg 10/13/18 10:00 10/17/18 09:46 Viread PO 300 mg Q96H GIA Administration
--- NOTE | 2018-10-18 08:32 | Progress Note ---
Assessment and Plan Severe sepsis: present on admission with fever, tachycardia, hypotension and elevated lactate Acute hypoxemic respiratory failure, required oral intubation for respiratory acidosis, increasing work of breathing and inability to protect airway/control secretions Bilateral pneumonia, improved Acute encephalopathy: improving Meningeal neurosyphilis Oral candidiasis Severe protein calorie malnutrition HIV/AIDS He is MSM and had a 2 years relationship with a HIV positive partner who was taking his ART. He did not use condom consistently. 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 from ATN, requiring HD Hypernatremia Hypokalemia Medical decision making -Continue all current supportive care -Mental status is improving -Trachesotomy and PEG, await availability of the surgical service -Supportive HD/UF per renal service -Free water flushes and hypotonic solution to treat hypernatremia -Serial BMPs --Replete electrolytes as indicated -ABG and CXR as indicated at this time Continue all care as documented below -VAP bundle addressed -Lung protective strategies -Antimicrobials per ID, HAART per ID - continue supplemental oxygen to keep sats > 90% - continue bronchodilators with pulmonary - continue daily SBT's, at this time mental status precludes liberation from MVS - monitor for drug-drug interactions - continue enteral nutrition as tolerated -accucheck with glycemic control - PT/OT/ROM exercises as tolerated - mobility protocol for pressure ulcer prevention - continue GI & VTE prophylaxis -Re-culture if any fevers - continue other care per attending / other consultants Discharge planning- trach with plan to discharge to [facility]ACH for ongoing care and weaning from MVS The high probability of a clinically significant, sudden or life threatening deterioration of the [cardiac, respiratory, renal and neurologic] system(s) required my full and direct attention, intervention and personal management. The aggregate critical care time was [30] minutes. This time is in addition to time spent performing reported procedures but includes the following: [x] Data Review and interpretation [x] Patient assessment and monitoring of vital signs [x] Documentation Subjective Date of service: 10/18/18 Principal diagnosis: low wbc Interval history: 33 y/o male with no PMH; admitted on 09/11/2018 due to 4 days-AMS/behavioral ch anges, nausea, voimiting, diarrhea, weight loss and cough: Patient is seen today for: Severe sepsis (present on admission with fever, tachycardia, hypotension and elevated lactate); Acute hypoxemic Respiratory failure; Bilateral pneumonia; Acute encephalopathy (Toxic / Metabolic); Atrial Fibrillation with RVR; HIV-AIDS Seen and examined at bedside; 24hour events reviewed; nursing and respiratory care staff consulted; no adverse overnight events reported to me; resting peacefully in bed; generalized edema with ongoing diarrhea. No further fevers overnight, Oral secretions, awake and obeying one step commands Remains on MVS, PSV 10/6 during the day with tidal volumes of about 350ml, not in any distress. Full ventilatory support at night. On going diarrhea, improving No new events overnight s/p vascath placement and HD, tolerating it Objective Vital Signs - 12hr 10/17/18 10/17/18 10/17/18 20:48 21:00 21:55 Temperature Pulse Rate 87 87 Pulse Rate [ 89 Bases] Respiratory 15 Rate Respiratory 17 Rate [Bases] Blood Pressure 130/69 127/69 O2 Sat by Pulse 95 Oximetry 10/17/18 10/17/18 10/17/18 22:00 23:00 23:33 Temperature Pulse Rate 91 H 91 H 88 Pulse Rate [ Bases] Respiratory 22 17 Rate Respiratory Rate [Bases] Blood Pressure 134/72 135/73 O2 Sat by Pulse 97 95 Oximetry 10/17/18 10/17/18 10/18/18 23:34 23:38 00:00 Temperature 98.9 F Pulse Rate 88 87 Pulse Rate [ Bases] Respiratory 14 22 Rate Respiratory Rate [Bases] Blood Pressure 125/70 127/72 O2 Sat by Pulse 100 100 Oximetry 10/18/18 10/18/18 10/18/18 01:00 02:00 03:00 Temperature Pulse Rate 85 83 88 Pulse Rate [ Bases] Respiratory 19 16 18 Rate Respiratory Rate [Bases] Blood Pressure 127/67 130/69 134/72 O2 Sat by Pulse 94 95 97 Oximetry 10/18/18 10/18/18 10/18/18 03:19 03:20 03:30 Temperature Pulse Rate 84 Pulse Rate [ 85 88 Bases] Respiratory 14 Rate Respiratory 19 19 Rate [Bases] Blood Pressure 134/72 O2 Sat by Pulse 100 Oximetry 10/18/18 10/18/18 10/18/18 03:31 04:00 05:00 Temperature 98.8 F Pulse Rate 89 85 Pulse Rate [ Bases] Respiratory 20 16 Rate Respiratory Rate [Bases] Blood Pressure 131/68 129/69 O2 Sat by Pulse 98 96 Oximetry 10/18/18 10/18/18 10/18/18 06:00 07:30 07:32 Temperature 98.3 F Pulse Rate 81 89 Pulse Rate [ Bases] Respiratory 16 Rate Respiratory Rate [Bases] Blood Pressure 135/76 153/94 O2 Sat by Pulse 100 100 Oximetry 10/18/18 10/18/18 10/18/18 07:35 07:37 08:01 Temperature Pulse Rate 91 H Pulse Rate [ 90 84 Bases] Respiratory 23 Rate Respiratory 18 18 Rate [Bases] Blood Pressure 153/94 O2 Sat by Pulse 99 Oximetry Constitutional: no acute distress, alert, other (orally intubated ETT at 23cm) Eyes: non-icteric ENT: oropharynx moist Neck: supple, no lymphadenopathy, other (no thyromegaly) Effort: normal Ascultation: Bilateral: rales, rhonchi (scant) Percussion: Bilateral: not dull Cardiovascular: regular rate and rhythm, other (S1,S2, no murmurs, gallps or rubs) Gastrointestinal: normoactive bowel sounds, soft, non-tender, non-distended Integumentary: rash Extremities: no cyanosis, pulses normal, no ischemia or petechiae, edema Neurologic: pupils equal and round, other (inconsistently obesy one step commands) Psychiatric: other CBC and BMP: 10/16/18 07:50 10/16/18 07:50 ABG, PT/INR, D-dimer: ABG POC ABG pH 7.336 (7.35-7.45) L 10/12/18 13:30 POC ABG pCO2 31.5 (35-45) L 10/12/18 13:30 POC ABG pO2 122 (80-105) H 10/12/18 13:30 POC ABG HCO3 16.8 10/12/18 13:30 POC ABG Total CO2 18 10/12/18 13:30 POC ABG O2 Sat 99 10/12/18 13:30 PT/INR, D-dimer PT 16.0 Sec. (12.2-14.9) H 10/10/18 08:09 INR 1.20 (0.87-1.13) H 10/10/18 08:09 Abnormal lab findings: Abnormal Labs 09/11/18 09/11/18 09/11/18 18:00 18:00 18:00 WBC 1.9 L* RBC Hgb Hct RDW Plt Count 130 L Seg Neuts % (Manual) Lymphocytes % (Manual) Monocytes % (Manual) 16.0 H Eosinophils % (Manual) Basophils % (Manual) Nucleated RBC % Seg Neutrophils # Man 0.9 L Abs Lymphs (Manual) Lymphocytes # (Manual) 0.5 L Basophils # (Manual) PT INR APTT Heparin Anti-Xa Level POC ABG pH POC ABG pCO2 POC ABG pO2 Sodium 131 L Potassium Chloride Carbon Dioxide 17 L BUN 21 H Creatinine Glucose 126 H POC Glucose Lactic Acid 2.60 H* Calcium 8.1 L Phosphorus Magnesium Iron TIBC Ferritin AST 123 H ALT 115 H Total Creatine Kinase Total Protein Albumin 3.0 L Vitamin B12 Folate TSH Free T4 Urine WBC (Auto) Urine Creatinine Urine Chloride Urine Total Protein CSF VDRL Lymph Enumerat CD4/CD8 Absolute CD3 Count % CD4 Cells Absolute CD4 Count % CD8 Cells Absolute CD19 Count T.pallidum Ab (FTA-ABS) HIV-1 RNA PCR copies/ml HIV-1 RNA (PCR) log Miscellaneous Test 09/11/18 09/13/18 09/13/18 19:01 04:28 07:31 WBC 2.0 L RBC Hgb Hct RDW Plt Count 116 L Seg Neuts % (Manual) Lymphocytes % (Manual) Monocytes % (Manual) 8.0 H Eosinophils % (Manual) Basophils % (Manual) Nucleated RBC % Seg Neutrophils # Man 1.0 L Abs Lymphs (Manual) Lymphocytes # (Manual) 0.5 L Basophils # (Manual) PT INR APTT Heparin Anti-Xa Level POC ABG pH POC ABG pCO2 POC ABG pO2 Sodium Potassium Chloride 110.4 H Carbon Dioxide 19 L BUN Creatinine Glucose POC Glucose Lactic Acid 3.70 H* Calcium 7.9 L Phosphorus Magnesium Iron TIBC Ferritin AST ALT Total Creatine Kinase Total Protein Albumin Vitamin B12 Folate TSH Free T4 Urine WBC (Auto) Urine Creatinine Urine Chloride Urine Total Protein CSF VDRL Lymph Enumerat CD4/CD8 Absolute CD3 Count % CD4 Cells Absolute CD4 Count % CD8 Cells Absolute CD19 Count T.pallidum Ab (FTA-ABS) HIV-1 RNA PCR copies/ml HIV-1 RNA (PCR) log Miscellaneous Test 09/13/18 09/13/18 09/13/18 07:31 12:29 12:29 WBC RBC Hgb Hct RDW Plt Count Seg Neuts % (Manual) Lymphocytes % (Manual) Monocytes % (Manual) Eosinophils % (Manual) Basophils % (Manual) Nucleated RBC % Seg Neutrophils # Man Abs Lymphs (Manual) 309 L Lymphocytes # (Manual) Basophils # (Manual) PT INR APTT Heparin Anti-Xa Level POC ABG pH POC ABG pCO2 POC ABG pO2 Sodium Potassium Chloride Carbon Dioxide BUN Creatinine Glucose POC Glucose Lactic Acid Calcium Phosphorus Magnesium Iron TIBC Ferritin AST 70 H ALT 68 H Total Creatine Kinase Total Protein Albumin 2.5 L Vitamin B12 Folate TSH Free T4 Urine WBC (Auto) Urine Creatinine Urine Chloride Urine Total Protein CSF VDRL Lymph Enumerat CD4/CD8 0.01 L Absolute CD3 Count 220 L % CD4 Cells 1 L Absolute CD4 Count 4 L % CD8 Cells 70 H Absolute CD19 Count 54 L T.pallidum Ab (FTA-ABS) HIV-1 RNA PCR copies/ml 80839 H HIV-1 RNA (PCR) log 4.71 H Miscellaneous Test 09/13/18 09/14/18 09/14/18 12:29 07:17 16:34 WBC RBC Hgb Hct RDW Plt Count Seg Neuts % (Manual) Lymphocytes % (Manual) Monocytes % (Manual) Eosinophils % (Manual) Basophils % (Manual) Nucleated RBC % Seg Neutrophils # Man Abs Lymphs (Manual) Lymphocytes # (Manual) Basophils # (Manual) PT INR APTT Heparin Anti-Xa Level POC ABG pH POC ABG pCO2 POC ABG pO2 Sodium Potassium 3.4 L Chloride Carbon Dioxide 18 L BUN Creatinine Glucose 104 H POC Glucose Lactic Acid Calcium 7.6 L Phosphorus Magnesium Iron TIBC Ferritin AST 49 H ALT Total Creatine Kinase Total Protein Albumin 2.5 L Vitamin B12 Folate TSH Free T4 Urine WBC (Auto) Urine Creatinine Urine Chloride Urine Total Protein CSF VDRL Lymph Enumerat CD4/CD8 Absolute CD3 Count % CD4 Cells Absolute CD4 Count % CD8 Cells Absolute CD19 Count T.pallidum Ab (FTA-ABS) Reactive H HIV-1 RNA PCR copies/ml HIV-1 RNA (PCR) log Miscellaneous Test Flexitest 1 H 09/15/18 09/15/18 09/15/18 05:05 05:05 Unknown WBC 1.6 L* RBC Hgb 10.4 L Hct 31.1 L D RDW Plt Count 113 L Seg Neuts % (Manual) Lymphocytes % (Manual) Monocytes % (Manual) Eosinophils % (Manual) Basophils % (Manual) Nucleated RBC % Seg Neutrophils # Man Abs Lymphs (Manual) Lymphocytes # (Manual) Basophils # (Manual) PT INR APTT Heparin Anti-Xa Level POC ABG pH POC ABG pCO2 POC ABG pO2 Sodium Potassium Chloride 107.9 H Carbon Dioxide 18 L BUN 6 L Creatinine Glucose POC Glucose Lactic Acid Calcium 7.4 L Phosphorus Magnesium Iron TIBC Ferritin AST ALT Total Creatine Kinase Total Protein Albumin Vitamin B12 Folate TSH Free T4 Urine WBC (Auto) Urine Creatinine Urine Chloride Urine Total Protein CSF VDRL Reactive 1:8 H Lymph Enumerat CD4/CD8 Absolute CD3 Count % CD4 Cells Absolute CD4 Count % CD8 Cells Absolute CD19 Count T.pallidum Ab (FTA-ABS) HIV-1 RNA PCR copies/ml HIV-1 RNA (PCR) log Miscellaneous Test 09/16/18 09/16/18 09/16/18 06:55 11:41 11:41 WBC 2.8 L RBC Hgb 10.9 L Hct 33.5 L RDW Plt Count 135 L Seg Neuts % (Manual) Lymphocytes % (Manual) Monocytes % (Manual) Eosinophils % (Manual) Basophils % (Manual) Nucleated RBC % Seg Neutrophils # Man Abs Lymphs (Manual) Lymphocytes # (Manual) Basophils # (Manual) PT INR APTT Heparin Anti-Xa Level POC ABG pH POC ABG pCO2 POC ABG pO2 Sodium Potassium Chloride Carbon Dioxide BUN Creatinine Glucose POC Glucose Lactic Acid Calcium Phosphorus Magnesium Iron TIBC Ferritin AST ALT Total Creatine Kinase Total Protein Albumin Vitamin B12 Folate TSH 4.210 H Free T4 0.72 L Urine WBC (Auto) Urine Creatinine Urine Chloride Urine Total Protein CSF VDRL Lymph Enumerat CD4/CD8 Absolute CD3 Count % CD4 Cells Absolute CD4 Count % CD8 Cells Absolute CD19 Count T.pallidum Ab (FTA-ABS) HIV-1 RNA PCR copies/ml HIV-1 RNA (PCR) log Miscellaneous Test 09/16/18 09/16/18 09/17/18 11:41 15:43 05:13 WBC 2.0 L RBC Hgb 10.9 L Hct 32.7 L RDW Plt Count Seg Neuts % (Manual) Lymphocytes % (Manual) Monocytes % (Manual) Eosinophils % (Manual) Basophils % (Manual) Nucleated RBC % Seg Neutrophils # Man Abs Lymphs (Manual) Lymphocytes # (Manual) Basophils # (Manual) PT INR APTT Heparin Anti-Xa Level POC ABG pH POC ABG pCO2 29.3 L POC ABG pO2 70 L Sodium Potassium Chloride Carbon Dioxide BUN Creatinine Glucose POC Glucose Lactic Acid Calcium Phosphorus Magnesium Iron TIBC Ferritin AST ALT Total Creatine Kinase Total Protein Albumin Vitamin B12 934.5 H Folate TSH Free T4 Urine WBC (Auto) Urine Creatinine Urine Chloride Urine Total Protein CSF VDRL Lymph Enumerat CD4/CD8 Absolute CD3 Count % CD4 Cells Absolute CD4 Count % CD8 Cells Absolute CD19 Count T.pallidum Ab (FTA-ABS) HIV-1 RNA PCR copies/ml HIV-1 RNA (PCR) log Miscellaneous Test 09/17/18 09/17/18 09/18/18 05:13 21:57 12:46 WBC RBC Hgb Hct RDW Plt Count Seg Neuts % (Manual) Lymphocytes % (Manual) Monocytes % (Manual) Eosinophils % (Manual) Basophils % (Manual) Nucleated RBC % Seg Neutrophils # Man Abs Lymphs (Manual) Lymphocytes # (Manual) Basophils # (Manual) PT INR APTT Heparin Anti-Xa Level POC ABG pH POC ABG pCO2 POC ABG pO2 Sodium Potassium Chloride 107.2 H Carbon Dioxide 21 L BUN 3 L Creatinine 0.7 L Glucose POC Glucose 108 H Lactic Acid Calcium 7.9 L Phosphorus Magnesium Iron TIBC Ferritin AST ALT Total Creatine Kinase Total Protein 6.1 L Albumin 2.6 L Vitamin B12 Folate TSH Free T4 0.75 L Urine WBC (Auto) Urine Creatinine Urine Chloride Urine Total Protein CSF VDRL Lymph Enumerat CD4/CD8 Absolute CD3 Count % CD4 Cells Absolute CD4 Count % CD8 Cells Absolute CD19 Count T.pallidum Ab (FTA-ABS) HIV-1 RNA PCR copies/ml HIV-1 RNA (PCR) log Miscellaneous Test 09/18/18 09/19/18 09/19/18 12:46 04:57 04:57 WBC 2.1 L RBC Hgb 11.4 L Hct 34.2 L RDW Plt Count Seg Neuts % (Manual) Lymphocytes % (Manual) Monocytes % (Manual) Eosinophils % (Manual) Basophils % (Manual) Nucleated RBC % Seg Neutrophils # Man Abs Lymphs (Manual) Lymphocytes # (Manual) Basophils # (Manual) PT INR APTT Heparin Anti-Xa Level POC ABG pH POC ABG pCO2 POC ABG pO2 Sodium Potassium Chloride Carbon Dioxide 19 L BUN 6 L Creatinine Glucose POC Glucose Lactic Acid Calcium 7.9 L Phosphorus Magnesium Iron TIBC Ferritin AST ALT Total Creatine Kinase Total Protein Albumin Vitamin B12 Folate TSH 5.190 H Free T4 Urine WBC (Auto) Urine Creatinine Urine Chloride Urine Total Protein CSF VDRL Lymph Enumerat CD4/CD8 Absolute CD3 Count % CD4 Cells Absolute CD4 Count % CD8 Cells Absolute CD19 Count T.pallidum Ab (FTA-ABS) HIV-1 RNA PCR copies/ml HIV-1 RNA (PCR) log Miscellaneous Test 09/19/18 09/19/18 09/20/18 15:00 15:00 05:33 WBC RBC Hgb Hct RDW Plt Count Seg Neuts % (Manual) Lymphocytes % (Manual) Monocytes % (Manual) Eosinophils % (Manual) Basophils % (Manual) Nucleated RBC % Seg Neutrophils # Man Abs Lymphs (Manual) Lymphocytes # (Manual) Basophils # (Manual) PT INR APTT Heparin Anti-Xa Level POC ABG pH POC ABG pCO2 POC ABG pO2 Sodium 136 L Potassium Chloride Carbon Dioxide 19 L BUN 7 L Creatinine Glucose POC Glucose Lactic Acid Calcium Phosphorus Magnesium Iron TIBC Ferritin AST ALT Total Creatine Kinase Total Protein Albumin Vitamin B12 Folate TSH Free T4 Urine WBC (Auto) Urine Creatinine Urine Chloride Urine Total Protein CSF VDRL Reactive 1:4 H Lymph Enumerat CD4/CD8 Absolute CD3 Count % CD4 Cells Absolute CD4 Count % CD8 Cells Absolute CD19 Count T.pallidum Ab (FTA-ABS) HIV-1 RNA PCR copies/ml HIV-1 RNA (PCR) log Miscellaneous Test Flexitest 1 H 09/20/18 09/21/18 09/21/18 06:52 01:06 03:49 WBC 2.5 L RBC Hgb Hct RDW Plt Count Seg Neuts % (Manual) Lymphocytes % (Manual) Monocytes % (Manual) Eosinophils % (Manual) Basophils % (Manual) Nucleated RBC % Seg Neutrophils # Man Abs Lymphs (Manual) Lymphocytes # (Manual) Basophils # (Manual) PT INR APTT Heparin Anti-Xa Level POC ABG pH 7.159 L POC ABG pCO2 32.9 L 70.0 H POC ABG pO2 62 L 254 H Sodium Potassium Chloride Carbon Dioxide BUN Creatinine Glucose POC Glucose Lactic Acid Calcium Phosphorus Magnesium Iron TIBC Ferritin AST ALT Total Creatine Kinase Total Protein Albumin Vitamin B12 Folate TSH Free T4 Urine WBC (Auto) Urine Creatinine Urine Chloride Urine Total Protein CSF VDRL Lymph Enumerat CD4/CD8 Absolute CD3 Count % CD4 Cells Absolute CD4 Count % CD8 Cells Absolute CD19 Count T.pallidum Ab (FTA-ABS) HIV-1 RNA PCR copies/ml HIV-1 RNA (PCR) log Miscellaneous Test 09/21/18 09/21/18 09/21/18 04:15 04:15 04:25 WBC 3.1 L RBC Hgb 11.6 L Hct RDW Plt Count Seg Neuts % (Manual) Lymphocytes % (Manual) Monocytes % (Manual) 12.0 H Eosinophils % (Manual) Basophils % (Manual) Nucleated RBC % Seg Neutrophils # Man 1.6 L Abs Lymphs (Manual) Lymphocytes # (Manual) 0.5 L Basophils # (Manual) PT INR APTT Heparin Anti-Xa Level POC ABG pH POC ABG pCO2 POC ABG pO2 Sodium Potassium 6.1 H* D Chloride Carbon Dioxide 19 L BUN Creatinine Glucose 108 H POC Glucose Lactic Acid Calcium Phosphorus Magnesium Iron TIBC Ferritin AST ALT Total Creatine Kinase 685 H Total Protein Albumin Vitamin B12 Folate TSH Free T4 Urine WBC (Auto) Urine Creatinine Urine Chloride Urine Total Protein CSF VDRL Lymph Enumerat CD4/CD8 Absolute CD3 Count % CD4 Cells Absolute CD4 Count % CD8 Cells Absolute CD19 Count T.pallidum Ab (FTA-ABS) HIV-1 RNA PCR copies/ml HIV-1 RNA (PCR) log Miscellaneous Test 09/21/18 09/21/18 09/21/18 09:59 10:07 11:00 WBC RBC Hgb 11.7 L Hct RDW Plt Count Seg Neuts % (Manual) Lymphocytes % (Manual) Monocytes % (Manual) Eosinophils % (Manual) Basophils % (Manual) Nucleated RBC % Seg Neutrophils # Man Abs Lymphs (Manual) Lymphocytes # (Manual) Basophils # (Manual) PT INR APTT Heparin Anti-Xa Level POC ABG pH 7.301 L POC ABG pCO2 POC ABG pO2 109 H Sodium Potassium 6.5 H* Chloride Carbon Dioxide 18 L BUN Creatinine 2.1 H D Glucose POC Glucose Lactic Acid Calcium 8.1 L Phosphorus Magnesium Iron TIBC Ferritin AST 94 H ALT Total Creatine Kinase Total Protein Albumin 2.8 L Vitamin B12 Folate TSH Free T4 Urine WBC (Auto) Urine Creatinine Urine Chloride Urine Total Protein CSF VDRL Lymph Enumerat CD4/CD8 Absolute CD3 Count % CD4 Cells Absolute CD4 Count % CD8 Cells Absolute CD19 Count T.pallidum Ab (FTA-ABS) HIV-1 RNA PCR copies/ml HIV-1 RNA (PCR) log Miscellaneous Test 09/21/18 09/21/18 09/21/18 15:00 21:54 21:54 WBC RBC Hgb Hct RDW Plt Count Seg Neuts % (Manual) Lymphocytes % (Manual) Monocytes % (Manual) Eosinophils % (Manual) Basophils % (Manual) Nucleated RBC % Seg Neutrophils # Man Abs Lymphs (Manual) Lymphocytes # (Manual) Basophils # (Manual) PT 19.9 H INR 1.65 H APTT 40.9 H Heparin Anti-Xa Level 0.98 H POC ABG pH POC ABG pCO2 POC ABG pO2 Sodium Potassium 5.2 H Chloride Carbon Dioxide BUN Creatinine Glucose POC Glucose Lactic Acid Calcium Phosphorus Magnesium Iron TIBC Ferritin AST ALT Total Creatine Kinase Total Protein Albumin Vitamin B12 Folate TSH Free T4 Urine WBC (Auto) Urine Creatinine Urine Chloride Urine Total Protein CSF VDRL Lymph Enumerat CD4/CD8 Absolute CD3 Count % CD4 Cells Absolute CD4 Count % CD8 Cells Absolute CD19 Count T.pallidum Ab (FTA-ABS) HIV-1 RNA PCR copies/ml HIV-1 RNA (PCR) log Miscellaneous Test 09/21/18 09/22/18 09/22/18 22:57 03:01 05:27 WBC RBC Hgb Hct RDW Plt Count Seg Neuts % (Manual) Lymphocytes % (Manual) Monocytes % (Manual) Eosinophils % (Manual) Basophils % (Manual) Nucleated RBC % Seg Neutrophils # Man Abs Lymphs (Manual) Lymphocytes # (Manual) Basophils # (Manual) PT INR APTT Heparin Anti-Xa Level POC ABG pH POC ABG pCO2 32.7 L POC ABG pO2 Sodium Potassium Chloride Carbon Dioxide BUN Creatinine Glucose POC Glucose 124 H 128 H Lactic Acid Calcium Phosphorus Magnesium Iron TIBC Ferritin AST ALT Total Creatine Kinase Total Protein Albumin Vitamin B12 Folate TSH Free T4 Urine WBC (Auto) Urine Creatinine Urine Chloride Urine Total Protein CSF VDRL Lymph Enumerat CD4/CD8 Absolute CD3 Count % CD4 Cells Absolute CD4 Count % CD8 Cells Absolute CD19 Count T.pallidum Ab (FTA-ABS) HIV-1 RNA PCR copies/ml HIV-1 RNA (PCR) log Miscellaneous Test 09/22/18 09/22/18 09/22/18 07:00 07:00 11:32 WBC 1.8 L* RBC 3.59 L Hgb 10.1 L Hct 30.8 L RDW Plt Count 126 L Seg Neuts % (Manual) Lymphocytes % (Manual) Monocytes % (Manual) Eosinophils % (Manual) Basophils % (Manual) Nucleated RBC % Seg Neutrophils # Man Abs Lymphs (Manual) Lymphocytes # (Manual) Basophils # (Manual) PT INR APTT Heparin Anti-Xa Level POC ABG pH POC ABG pCO2 POC ABG pO2 Sodium Potassium Chloride Carbon Dioxide BUN 27 H Creatinine 2.0 H Glucose 128 H POC Glucose 123 H Lactic Acid Calcium 6.9 L Phosphorus Magnesium Iron TIBC Ferritin AST ALT Total Creatine Kinase Total Protein Albumin Vitamin B12 Folate TSH Free T4 Urine WBC (Auto) Urine Creatinine Urine Chloride Urine Total Protein CSF VDRL Lymph Enumerat CD4/CD8 Absolute CD3 Count % CD4 Cells Absolute CD4 Count % CD8 Cells Absolute CD19 Count T.pallidum Ab (FTA-ABS) HIV-1 RNA PCR copies/ml HIV-1 RNA (PCR) log Miscellaneous Test 09/22/18 09/22/18 09/22/18 15:52 18:18 23:52 WBC RBC Hgb Hct RDW Plt Count Seg Neuts % (Manual) Lymphocytes % (Manual) Monocytes % (Manual) Eosinophils % (Manual) Basophils % (Manual) Nucleated RBC % Seg Neutrophils # Man Abs Lymphs (Manual) Lymphocytes # (Manual) Basophils # (Manual) PT INR APTT Heparin Anti-Xa Level POC ABG pH POC ABG pCO2 48.7 H POC ABG pO2 Sodium Potassium Chloride Carbon Dioxide BUN Creatinine Glucose POC Glucose 110 H 124 H Lactic Acid Calcium Phosphorus Magnesium Iron TIBC Ferritin AST ALT Total Creatine Kinase Total Protein Albumin Vitamin B12 Folate TSH Free T4 Urine WBC (Auto) Urine Creatinine Urine Chloride Urine Total Protein CSF VDRL Lymph Enumerat CD4/CD8 Absolute CD3 Count % CD4 Cells Absolute CD4 Count % CD8 Cells Absolute CD19 Count T.pallidum Ab (FTA-ABS) HIV-1 RNA PCR copies/ml HIV-1 RNA (PCR) log Miscellaneous Test 09/23/18 09/23/18 09/23/18 04:10 05:55 05:55 WBC RBC Hgb 10.0 L Hct 30.3 L RDW Plt Count 117 L Seg Neuts % (Manual) Lymphocytes % (Manual) Monocytes % (Manual) Eosinophils % (Manual) Basophils % (Manual) Nucleated RBC % Seg Neutrophils # Man Abs Lymphs (Manual) Lymphocytes # (Manual) Basophils # (Manual) PT INR APTT Heparin Anti-Xa Level 0.26 L POC ABG pH POC ABG pCO2 POC ABG pO2 144 H Sodium Potassium Chloride Carbon Dioxide BUN Creatinine Glucose POC Glucose Lactic Acid Calcium Phosphorus Magnesium Iron TIBC Ferritin AST ALT Total Creatine Kinase Total Protein Albumin Vitamin B12 Folate TSH Free T4 Urine WBC (Auto) Urine Creatinine Urine Chloride Urine Total Protein CSF VDRL Lymph Enumerat CD4/CD8 Absolute CD3 Count % CD4 Cells Absolute CD4 Count % CD8 Cells Absolute CD19 Count T.pallidum Ab (FTA-ABS) HIV-1 RNA PCR copies/ml HIV-1 RNA (PCR) log Miscellaneous Test 09/23/18 09/23/18 09/23/18 08:10 08:10 23:57 WBC 1.3 L* RBC 3.53 L Hgb 9.9 L Hct 30.0 L RDW Plt Count 119 L Seg Neuts % (Manual) Lymphocytes % (Manual) Monocytes % (Manual) Eosinophils % (Manual) Basophils % (Manual) Nucleated RBC % Seg Neutrophils # Man Abs Lymphs (Manual) Lymphocytes # (Manual) Basophils # (Manual) PT INR APTT Heparin Anti-Xa Level POC ABG pH POC ABG pCO2 POC ABG pO2 Sodium Potassium Chloride Carbon Dioxide BUN Creatinine Glucose 122 H POC Glucose 115 H Lactic Acid Calcium 6.9 L Phosphorus Magnesium Iron TIBC Ferritin AST ALT Total Creatine Kinase Total Protein Albumin Vitamin B12 Folate TSH Free T4 Urine WBC (Auto) Urine Creatinine Urine Chloride Urine Total Protein CSF VDRL Lymph Enumerat CD4/CD8 Absolute CD3 Count % CD4 Cells Absolute CD4 Count % CD8 Cells Absolute CD19 Count T.pallidum Ab (FTA-ABS) HIV-1 RNA PCR copies/ml HIV-1 RNA (PCR) log Miscellaneous Test 09/24/18 09/24/18 09/24/18 12:04 14:42 18:10 WBC RBC Hgb Hct RDW Plt Count Seg Neuts % (Manual) Lymphocytes % (Manual) Monocytes % (Manual) Eosinophils % (Manual) Basophils % (Manual) Nucleated RBC % Seg Neutrophils # Man Abs Lymphs (Manual) Lymphocytes # (Manual) Basophils # (Manual) PT INR APTT Heparin Anti-Xa Level 0.76 H POC ABG pH POC ABG pCO2 POC ABG pO2 Sodium Potassium Chloride Carbon Dioxide BUN Creatinine Glucose POC Glucose 111 H 138 H Lactic Acid Calcium Phosphorus Magnesium Iron TIBC Ferritin AST ALT Total Creatine Kinase Total Protein Albumin Vitamin B12 Folate TSH Free T4 Urine WBC (Auto) Urine Creatinine Urine Chloride Urine Total Protein CSF VDRL Lymph Enumerat CD4/CD8 Absolute CD3 Count % CD4 Cells Absolute CD4 Count % CD8 Cells Absolute CD19 Count T.pallidum Ab (FTA-ABS) HIV-1 RNA PCR copies/ml HIV-1 RNA (PCR) log Miscellaneous Test 09/25/18 09/25/18 09/25/18 03:45 04:24 14:20 WBC RBC Hgb 9.7 L Hct 29.4 L RDW Plt Count 104 L Seg Neuts % (Manual) Lymphocytes % (Manual) Monocytes % (Manual) Eosinophils % (Manual) Basophils % (Manual) Nucleated RBC % Seg Neutrophils # Man Abs Lymphs (Manual) Lymphocytes # (Manual) Basophils # (Manual) PT INR APTT Heparin Anti-Xa Level POC ABG pH 7.460 H POC ABG pCO2 32.9 L POC ABG pO2 Sodium Potassium 3.5 L Chloride 110.3 H Carbon Dioxide BUN Creatinine Glucose 105 H POC Glucose Lactic Acid Calcium 6.7 L Phosphorus Magnesium Iron TIBC Ferritin AST 633 H ALT 481 H Total Creatine Kinase Total Protein 4.8 L D Albumin 1.9 L Vitamin B12 Folate TSH Free T4 Urine WBC (Auto) Urine Creatinine Urine Chloride Urine Total Protein CSF VDRL Lymph Enumerat CD4/CD8 Absolute CD3 Count % CD4 Cells Absolute CD4 Count % CD8 Cells Absolute CD19 Count T.pallidum Ab (FTA-ABS) HIV-1 RNA PCR copies/ml HIV-1 RNA (PCR) log Miscellaneous Test 09/26/18 09/26/18 09/26/18 06:15 06:15 10:43 WBC 1.2 L* RBC 3.32 L Hgb 9.2 L Hct 28.6 L RDW Plt Count 97 L Seg Neuts % (Manual) 24.0 L Lymphocytes % (Manual) 43.0 H Monocytes % (Manual) 19.0 H Eosinophils % (Manual) 8.0 H Basophils % (Manual) 2.0 H Nucleated RBC % 3.0 H Seg Neutrophils # Man 0.0 L Abs Lymphs (Manual) Lymphocytes # (Manual) 0.0 L Basophils # (Manual) PT INR APTT Heparin Anti-Xa Level POC ABG pH 7.459 H POC ABG pCO2 POC ABG pO2 141 H Sodium Potassium Chloride 112.8 H Carbon Dioxide BUN Creatinine Glucose 110 H POC Glucose Lactic Acid Calcium 7.0 L Phosphorus 0.90 L* Magnesium Iron TIBC Ferritin AST 362 H ALT 360 H Total Creatine Kinase Total Protein 4.9 L Albumin 1.5 L Vitamin B12 Folate TSH Free T4 Urine WBC (Auto) Urine Creatinine Urine Chloride Urine Total Protein CSF VDRL Lymph Enumerat CD4/CD8 Absolute CD3 Count % CD4 Cells Absolute CD4 Count % CD8 Cells Absolute CD19 Count T.pallidum Ab (FTA-ABS) HIV-1 RNA PCR copies/ml HIV-1 RNA (PCR) log Miscellaneous Test 09/26/18 09/27/18 09/28/18 13:56 04:11 07:49 WBC RBC Hgb 9.1 L Hct 29.1 L RDW Plt Count 96 L Seg Neuts % (Manual) Lymphocytes % (Manual) Monocytes % (Manual) Eosinophils % (Manual) Basophils % (Manual) Nucleated RBC % Seg Neutrophils # Man Abs Lymphs (Manual) Lymphocytes # (Manual) Basophils # (Manual) PT INR APTT Heparin Anti-Xa Level POC ABG pH POC ABG pCO2 POC ABG pO2 Sodium 146 H Potassium Chloride 111.6 H Carbon Dioxide BUN Creatinine Glucose POC Glucose 135 H Lactic Acid Calcium 7.4 L Phosphorus Magnesium Iron TIBC Ferritin AST ALT Total Creatine Kinase Total Protein Albumin Vitamin B12 Folate TSH Free T4 Urine WBC (Auto) Urine Creatinine Urine Chloride Urine Total Protein CSF VDRL Lymph Enumerat CD4/CD8 Absolute CD3 Count % CD4 Cells Absolute CD4 Count % CD8 Cells Absolute CD19 Count T.pallidum Ab (FTA-ABS) HIV-1 RNA PCR copies/ml HIV-1 RNA (PCR) log Miscellaneous Test 09/28/18 09/29/18 09/29/18 10:43 05:00 05:00 WBC 1.2 L* RBC 3.13 L Hgb 8.6 L Hct 27.3 L RDW Plt Count 137 L Seg Neuts % (Manual) Lymphocytes % (Manual) Monocytes % (Manual) 16.0 H Eosinophils % (Manual) Basophils % (Manual) Nucleated RBC % 4.0 H Seg Neutrophils # Man 0.5 L Abs Lymphs (Manual) Lymphocytes # (Manual) 0.3 L Basophils # (Manual) PT INR APTT Heparin Anti-Xa Level POC ABG pH 7.300 L POC ABG pCO2 53.9 H POC ABG pO2 Sodium 147 H Potassium 3.4 L Chloride 114.5 H Carbon Dioxide BUN Creatinine Glucose POC Glucose Lactic Acid Calcium 7.7 L Phosphorus Magnesium Iron TIBC Ferritin AST 69 H ALT 110 H Total Creatine Kinase Total Protein 5.2 L Albumin 1.9 L Vitamin B12 Folate TSH Free T4 Urine WBC (Auto) Urine Creatinine Urine Chloride Urine Total Protein CSF VDRL Lymph Enumerat CD4/CD8 Absolute CD3 Count % CD4 Cells Absolute CD4 Count % CD8 Cells Absolute CD19 Count T.pallidum Ab (FTA-ABS) HIV-1 RNA PCR copies/ml HIV-1 RNA (PCR) log Miscellaneous Test 09/29/18 09/29/18 09/30/18 06:07 13:22 05:19 WBC 0.9 L* RBC 3.03 L Hgb 8.6 L Hct 25.9 L RDW Plt Count Seg Neuts % (Manual) Lymphocytes % (Manual) Monocytes % (Manual) Eosinophils % (Manual) Basophils % (Manual) Nucleated RBC % Seg Neutrophils # Man Abs Lymphs (Manual) Lymphocytes # (Manual) Basophils # (Manual) PT INR APTT Heparin Anti-Xa Level POC ABG pH POC ABG pCO2 46.9 H POC ABG pO2 Sodium Potassium Chloride Carbon Dioxide BUN Creatinine Glucose POC Glucose 109 H Lactic Acid Calcium Phosphorus Magnesium Iron TIBC Ferritin AST ALT Total Creatine Kinase Total Protein Albumin Vitamin B12 Folate TSH Free T4 Urine WBC (Auto) Urine Creatinine Urine Chloride Urine Total Protein CSF VDRL Lymph Enumerat CD4/CD8 Absolute CD3 Count % CD4 Cells Absolute CD4 Count % CD8 Cells Absolute CD19 Count T.pallidum Ab (FTA-ABS) HIV-1 RNA PCR copies/ml HIV-1 RNA (PCR) log Miscellaneous Test 09/30/18 09/30/18 09/30/18 05:19 11:14 23:28 WBC RBC Hgb Hct RDW Plt Count Seg Neuts % (Manual) Lymphocytes % (Manual) Monocytes % (Manual) Eosinophils % (Manual) Basophils % (Manual) Nucleated RBC % Seg Neutrophils # Man Abs Lymphs (Manual) Lymphocytes # (Manual) Basophils # (Manual) PT INR APTT Heparin Anti-Xa Level 0.72 H POC ABG pH POC ABG pCO2 46.6 H POC ABG pO2 Sodium 150 H Potassium Chloride 115.2 H Carbon Dioxide BUN Creatinine Glucose POC Glucose Lactic Acid Calcium 7.9 L Phosphorus Magnesium Iron TIBC Ferritin AST ALT Total Creatine Kinase Total Protein Albumin Vitamin B12 Folate TSH Free T4 Urine WBC (Auto) Urine Creatinine Urine Chloride Urine Total Protein CSF VDRL Lymph Enumerat CD4/CD8 Absolute CD3 Count % CD4 Cells Absolute CD4 Count % CD8 Cells Absolute CD19 Count T.pallidum Ab (FTA-ABS) HIV-1 RNA PCR copies/ml HIV-1 RNA (PCR) log Miscellaneous Test 10/01/18 10/01/18 10/02/18 04:55 04:55 07:15 WBC 0.9 L* 0.7 L* RBC 3.01 L 2.92 L Hgb 8.4 L 8.4 L Hct 26.0 L 24.9 L RDW Plt Count Seg Neuts % (Manual) Lymphocytes % (Manual) Monocytes % (Manual) Eosinophils % (Manual) Basophils % (Manual) Nucleated RBC % Seg Neutrophils # Man Abs Lymphs (Manual) Lymphocytes # (Manual) Basophils # (Manual) PT INR APTT Heparin Anti-Xa Level POC ABG pH POC ABG pCO2 POC ABG pO2 Sodium 147 H Potassium 3.4 L Chloride 113.1 H Carbon Dioxide BUN 22 H Creatinine Glucose POC Glucose Lactic Acid Calcium 7.3 L Phosphorus Magnesium Iron TIBC Ferritin AST ALT Total Creatine Kinase Total Protein Albumin Vitamin B12 Folate TSH Free T4 Urine WBC (Auto) Urine Creatinine Urine Chloride Urine Total Protein CSF VDRL Lymph Enumerat CD4/CD8 Absolute CD3 Count % CD4 Cells Absolute CD4 Count % CD8 Cells Absolute CD19 Count T.pallidum Ab (FTA-ABS) HIV-1 RNA PCR copies/ml HIV-1 RNA (PCR) log Miscellaneous Test 10/02/18 10/03/18 10/03/18 07:15 06:12 06:12 WBC 0.8 L* RBC 2.96 L Hgb 8.5 L Hct 25.9 L RDW 15.4 H Plt Count Seg Neuts % (Manual) Lymphocytes % (Manual) Monocytes % (Manual) Eosinophils % (Manual) Basophils % (Manual) Nucleated RBC % Seg Neutrophils # Man Abs Lymphs (Manual) Lymphocytes # (Manual) Basophils # (Manual) PT INR APTT Heparin Anti-Xa Level POC ABG pH POC ABG pCO2 POC ABG pO2 Sodium Potassium 3.4 L 3.4 L Chloride 108.3 H Carbon Dioxide BUN Creatinine Glucose POC Glucose Lactic Acid Calcium 7.6 L 7.4 L Phosphorus Magnesium Iron TIBC Ferritin AST ALT Total Creatine Kinase Total Protein Albumin Vitamin B12 Folate TSH Free T4 Urine WBC (Auto) Urine Creatinine Urine Chloride Urine Total Protein CSF VDRL Lymph Enumerat CD4/CD8 Absolute CD3 Count % CD4 Cells Absolute CD4 Count % CD8 Cells Absolute CD19 Count T.pallidum Ab (FTA-ABS) HIV-1 RNA PCR copies/ml HIV-1 RNA (PCR) log Miscellaneous Test 10/03/18 10/03/18 10/04/18 11:45 13:23 01:40 WBC RBC Hgb Hct RDW Plt Count Seg Neuts % (Manual) Lymphocytes % (Manual) Monocytes % (Manual) Eosinophils % (Manual) Basophils % (Manual) Nucleated RBC % Seg Neutrophils # Man Abs Lymphs (Manual) Lymphocytes # (Manual) Basophils # (Manual) PT INR APTT Heparin Anti-Xa Level 1.34 H 0.26 L POC ABG pH POC ABG pCO2 POC ABG pO2 Sodium Potassium Chloride Carbon Dioxide BUN Creatinine Glucose POC Glucose Lactic Acid Calcium Phosphorus Magnesium 1.40 L Iron TIBC Ferritin AST ALT Total Creatine Kinase Total Protein Albumin Vitamin B12 Folate TSH Free T4 Urine WBC (Auto) Urine Creatinine Urine Chloride Urine Total Protein CSF VDRL Lymph Enumerat CD4/CD8 Absolute CD3 Count % CD4 Cells Absolute CD4 Count % CD8 Cells Absolute CD19 Count T.pallidum Ab (FTA-ABS) HIV-1 RNA PCR copies/ml HIV-1 RNA (PCR) log Miscellaneous Test 10/04/18 10/04/18 10/06/18 04:45 04:45 09:40 WBC 0.8 L* RBC 3.11 L Hgb 9.0 L Hct 27.4 L RDW 15.4 H Plt Count Seg Neuts % (Manual) Lymphocytes % (Manual) Monocytes % (Manual) Eosinophils % (Manual) Basophils % (Manual) Nucleated RBC % Seg Neutrophils # Man Abs Lymphs (Manual) Lymphocytes # (Manual) Basophils # (Manual) PT INR APTT Heparin Anti-Xa Level POC ABG pH POC ABG pCO2 POC ABG pO2 Sodium Potassium Chloride Carbon Dioxide BUN Creatinine 0.7 L Glucose POC Glucose Lactic Acid Calcium 7.5 L Phosphorus Magnesium Iron 35 L TIBC 157 L Ferritin AST ALT Total Creatine Kinase Total Protein Albumin Vitamin B12 Folate TSH Free T4 Urine WBC (Auto) Urine Creatinine Urine Chloride Urine Total Protein CSF VDRL Lymph Enumerat CD4/CD8 Absolute CD3 Count % CD4 Cells Absolute CD4 Count % CD8 Cells Absolute CD19 Count T.pallidum Ab (FTA-ABS) HIV-1 RNA PCR copies/ml HIV-1 RNA (PCR) log Miscellaneous Test 10/06/18 10/06/18 10/07/18 09:40 09:40 04:20 WBC 1.1 L* RBC 3.07 L Hgb 9.1 L Hct 27.3 L RDW 20.3 H Plt Count Seg Neuts % (Manual) Lymphocytes % (Manual) Monocytes % (Manual) Eosinophils % (Manual) Basophils % (Manual) Nucleated RBC % Seg Neutrophils # Man 0.7 L Abs Lymphs (Manual) Lymphocytes # (Manual) 0.3 L Basophils # (Manual) PT INR APTT Heparin Anti-Xa Level POC ABG pH POC ABG pCO2 POC ABG pO2 Sodium Potassium Chloride Carbon Dioxide BUN Creatinine Glucose POC Glucose Lactic Acid Calcium Phosphorus Magnesium Iron TIBC Ferritin 1126.0 H AST ALT Total Creatine Kinase Total Protein Albumin Vitamin B12 Folate 6.71 L TSH Free T4 Urine WBC (Auto) Urine Creatinine Urine Chloride Urine Total Protein CSF VDRL Lymph Enumerat CD4/CD8 Absolute CD3 Count % CD4 Cells Absolute CD4 Count % CD8 Cells Absolute CD19 Count T.pallidum Ab (FTA-ABS) HIV-1 RNA PCR copies/ml HIV-1 RNA (PCR) log Miscellaneous Test 10/07/18 10/07/18 10/09/18 04:20 15:38 04:20 WBC 1.1 L* RBC 3.35 L Hgb 9.9 L Hct 30.1 L RDW 21.4 H Plt Count Seg Neuts % (Manual) 19.0 L Lymphocytes % (Manual) 42.0 H Monocytes % (Manual) 18.0 H Eosinophils % (Manual) 15.0 H Basophils % (Manual) 2.0 H Nucleated RBC % Seg Neutrophils # Man 0.2 L Abs Lymphs (Manual) Lymphocytes # (Manual) 0.5 L Basophils # (Manual) PT INR APTT Heparin Anti-Xa Level POC ABG pH 7.516 H POC ABG pCO2 32.1 L POC ABG pO2 Sodium Potassium Chloride Carbon Dioxide BUN Creatinine 0.7 L Glucose POC Glucose Lactic Acid Calcium 7.9 L Phosphorus Magnesium Iron TIBC Ferritin AST ALT Total Creatine Kinase Total Protein 5.5 L Albumin 2.2 L Vitamin B12 Folate TSH Free T4 Urine WBC (Auto) Urine Creatinine Urine Chloride Urine Total Protein CSF VDRL Lymph Enumerat CD4/CD8 Absolute CD3 Count % CD4 Cells Absolute CD4 Count % CD8 Cells Absolute CD19 Count T.pallidum Ab (FTA-ABS) HIV-1 RNA PCR copies/ml HIV-1 RNA (PCR) log Miscellaneous Test 10/09/18 10/09/18 10/09/18 04:20 11:48 17:31 WBC RBC Hgb Hct RDW Plt Count Seg Neuts % (Manual) Lymphocytes % (Manual) Monocytes % (Manual) Eosinophils % (Manual) Basophils % (Manual) Nucleated RBC % Seg Neutrophils # Man Abs Lymphs (Manual) Lymphocytes # (Manual) Basophils # (Manual) PT INR APTT Heparin Anti-Xa Level POC ABG pH POC ABG pCO2 POC ABG pO2 Sodium Potassium 5.4 H Chloride Carbon Dioxide 21 L BUN 55 H 72 H Creatinine 3.8 H D 4.5 H Glucose 118 H POC Glucose 124 H Lactic Acid Calcium 8.3 L 8.2 L Phosphorus Magnesium Iron TIBC Ferritin AST ALT Total Creatine Kinase Total Protein Albumin Vitamin B12 Folate TSH Free T4 Urine WBC (Auto) Urine Creatinine Urine Chloride Urine Total Protein CSF VDRL Lymph Enumerat CD4/CD8 Absolute CD3 Count % CD4 Cells Absolute CD4 Count % CD8 Cells Absolute CD19 Count T.pallidum Ab (FTA-ABS) HIV-1 RNA PCR copies/ml HIV-1 RNA (PCR) log Miscellaneous Test 10/10/18 10/10/18 10/10/18 08:09 08:35 10:54 WBC 1.1 L* RBC 3.16 L Hgb 9.6 L Hct 28.8 L RDW 21.2 H Plt Count Seg Neuts % (Manual) 27.0 L Lymphocytes % (Manual) Monocytes % (Manual) 9.0 H Eosinophils % (Manual) 18.0 H Basophils % (Manual) 12.0 H Nucleated RBC % Seg Neutrophils # Man 0.3 L Abs Lymphs (Manual) Lymphocytes # (Manual) 0.3 L Basophils # (Manual) PT 16.0 H INR 1.20 H APTT Heparin Anti-Xa Level POC ABG pH POC ABG pCO2 POC ABG pO2 Sodium Potassium 5.5 H Chloride Carbon Dioxide 20 L BUN 83 H Creatinine 5.5 H Glucose 119 H POC Glucose Lactic Acid Calcium Phosphorus Magnesium Iron TIBC Ferritin AST ALT Total Creatine Kinase Total Protein Albumin Vitamin B12 Folate TSH Free T4 Urine WBC (Auto) Urine Creatinine Urine Chloride Urine Total Protein CSF VDRL Lymph Enumerat CD4/CD8 Absolute CD3 Count % CD4 Cells Absolute CD4 Count % CD8 Cells Absolute CD19 Count T.pallidum Ab (FTA-ABS) HIV-1 RNA PCR copies/ml HIV-1 RNA (PCR) log Miscellaneous Test 10/10/18 10/10/18 10/11/18 Unknown Unknown 05:20 WBC 1.2 L* RBC 2.89 L Hgb 8.7 L Hct 26.0 L RDW 20.1 H Plt Count Seg Neuts % (Manual) Lymphocytes % (Manual) 8.0 L Monocytes % (Manual) 12.0 H Eosinophils % (Manual) 24.0 H Basophils % (Manual) 4.0 H Nucleated RBC % Seg Neutrophils # Man 0.6 L Abs Lymphs (Manual) Lymphocytes # (Manual) 0.1 L Basophils # (Manual) PT INR APTT Heparin Anti-Xa Level POC ABG pH POC ABG pCO2 POC ABG pO2 Sodium Potassium Chloride Carbon Dioxide BUN Creatinine Glucose POC Glucose Lactic Acid Calcium Phosphorus Magnesium Iron TIBC Ferritin AST ALT Total Creatine Kinase Total Protein Albumin Vitamin B12 Folate TSH Free T4 Urine WBC (Auto) Urine Creatinine Urine Chloride Urine Total Protein CSF VDRL Reactive 1:2 H Lymph Enumerat CD4/CD8 Absolute CD3 Count % CD4 Cells Absolute CD4 Count % CD8 Cells Absolute CD19 Count T.pallidum Ab (FTA-ABS) HIV-1 RNA PCR copies/ml HIV-1 RNA (PCR) log Miscellaneous Test Flexitest 1 H 10/11/18 10/11/18 10/11/18 05:20 05:40 05:40 WBC RBC Hgb Hct RDW Plt Count Seg Neuts % (Manual) Lymphocytes % (Manual) Monocytes % (Manual) Eosinophils % (Manual) Basophils % (Manual) Nucleated RBC % Seg Neutrophils # Man Abs Lymphs (Manual) Lymphocytes # (Manual) Basophils # (Manual) PT INR APTT Heparin Anti-Xa Level POC ABG pH POC ABG pCO2 POC ABG pO2 Sodium Potassium Chloride Carbon Dioxide 20 L BUN 102 H Creatinine 6.7 H Glucose POC Glucose Lactic Acid Calcium 8.3 L Phosphorus Magnesium Iron TIBC Ferritin AST ALT Total Creatine Kinase Total Protein Albumin Vitamin B12 Folate TSH Free T4 Urine WBC (Auto) 8.0 H Urine Creatinine 57.5 H Urine Chloride 35.1 L Urine Total Protein 44 H CSF VDRL Lymph Enumerat CD4/CD8 Absolute CD3 Count % CD4 Cells Absolute CD4 Count % CD8 Cells Absolute CD19 Count T.pallidum Ab (FTA-ABS) HIV-1 RNA PCR copies/ml HIV-1 RNA (PCR) log Miscellaneous Test 10/11/18 10/12/18 10/12/18 16:41 03:30 03:30 WBC 0.9 L* RBC 2.78 L Hgb 8.3 L Hct 25.1 L RDW 19.9 H Plt Count Seg Neuts % (Manual) Lymphocytes % (Manual) Monocytes % (Manual) Eosinophils % (Manual) 20.0 H Basophils % (Manual) Nucleated RBC % Seg Neutrophils # Man 0.5 L Abs Lymphs (Manual) Lymphocytes # (Manual) 0.3 L Basophils # (Manual) PT INR APTT Heparin Anti-Xa Level POC ABG pH 7.318 L POC ABG pCO2 POC ABG pO2 Sodium Potassium Chloride Carbon Dioxide 18 L BUN 111 H Creatinine 7.3 H Glucose POC Glucose Lactic Acid Calcium 7.9 L Phosphorus Magnesium Iron TIBC Ferritin AST ALT Total Creatine Kinase Total Protein Albumin Vitamin B12 Folate TSH Free T4 Urine WBC (Auto) Urine Creatinine Urine Chloride Urine Total Protein CSF VDRL Lymph Enumerat CD4/CD8 Absolute CD3 Count % CD4 Cells Absolute CD4 Count % CD8 Cells Absolute CD19 Count T.pallidum Ab (FTA-ABS) HIV-1 RNA PCR copies/ml HIV-1 RNA (PCR) log Miscellaneous Test 10/12/18 10/13/18 10/13/18 13:30 04:00 04:05 WBC 1.0 L* RBC 2.68 L Hgb 8.1 L Hct 24.3 L RDW 19.7 H Plt Count Seg Neuts % (Manual) 36.7 L Lymphocytes % (Manual) Monocytes % (Manual) Eosinophils % (Manual) 16.7 H Basophils % (Manual) 16.7 H Nucleated RBC % Seg Neutrophils # Man 0.4 L Abs Lymphs (Manual) Lymphocytes # (Manual) 0.2 L Basophils # (Manual) 0.2 H PT INR APTT Heparin Anti-Xa Level POC ABG pH 7.336 L POC ABG pCO2 31.5 L POC ABG pO2 122 H Sodium Potassium Chloride Carbon Dioxide 17 L BUN 118 H Creatinine 7.8 H Glucose 102 H POC Glucose Lactic Acid Calcium 7.8 L Phosphorus Magnesium Iron TIBC Ferritin AST ALT Total Creatine Kinase Total Protein Albumin Vitamin B12 Folate TSH Free T4 Urine WBC (Auto) Urine Creatinine Urine Chloride Urine Total Protein CSF VDRL Lymph Enumerat CD4/CD8 Absolute CD3 Count % CD4 Cells Absolute CD4 Count % CD8 Cells Absolute CD19 Count T.pallidum Ab (FTA-ABS) HIV-1 RNA PCR copies/ml HIV-1 RNA (PCR) log Miscellaneous Test 10/13/18 10/14/18 10/14/18 18:44 00:01 05:20 WBC RBC Hgb Hct RDW Plt Count Seg Neuts % (Manual) Lymphocytes % (Manual) Monocytes % (Manual) Eosinophils % (Manual) Basophils % (Manual) Nucleated RBC % Seg Neutrophils # Man Abs Lymphs (Manual) Lymphocytes # (Manual) Basophils # (Manual) PT INR APTT Heparin Anti-Xa Level POC ABG pH POC ABG pCO2 POC ABG pO2 Sodium Potassium Chloride Carbon Dioxide BUN Creatinine Glucose POC Glucose 141 H 134 H 171 H Lactic Acid Calcium Phosphorus Magnesium Iron TIBC Ferritin AST ALT Total Creatine Kinase Total Protein Albumin Vitamin B12 Folate TSH Free T4 Urine WBC (Auto) Urine Creatinine Urine Chloride Urine Total Protein CSF VDRL Lymph Enumerat CD4/CD8 Absolute CD3 Count % CD4 Cells Absolute CD4 Count % CD8 Cells Absolute CD19 Count T.pallidum Ab (FTA-ABS) HIV-1 RNA PCR copies/ml HIV-1 RNA (PCR) log Miscellaneous Test 10/14/18 10/14/18 10/14/18 09:39 09:40 11:37 WBC RBC Hgb Hct RDW Plt Count Seg Neuts % (Manual) Lymphocytes % (Manual) Monocytes % (Manual) Eosinophils % (Manual) Basophils % (Manual) Nucleated RBC % Seg Neutrophils # Man Abs Lymphs (Manual) Lymphocytes # (Manual) Basophils # (Manual) PT INR APTT Heparin Anti-Xa Level POC ABG pH POC ABG pCO2 POC ABG pO2 Sodium 147 H Potassium 3.4 L Chloride 108.1 H Carbon Dioxide 16 L BUN 124 H Creatinine 6.7 H Glucose 144 H POC Glucose 164 H Lactic Acid Calcium 7.8 L Phosphorus 8.50 H Magnesium Iron TIBC Ferritin AST ALT Total Creatine Kinase Total Protein Albumin Vitamin B12 Folate TSH Free T4 Urine WBC (Auto) Urine Creatinine Urine Chloride Urine Total Protein CSF VDRL Lymph Enumerat CD4/CD8 Absolute CD3 Count % CD4 Cells Absolute CD4 Count % CD8 Cells Absolute CD19 Count T.pallidum Ab (FTA-ABS) HIV-1 RNA PCR copies/ml HIV-1 RNA (PCR) log Miscellaneous Test 10/14/18 10/14/18 10/15/18 Unknown Unknown 00:05 WBC 0.5 L* RBC 2.80 L Hgb 8.2 L Hct 25.2 L RDW 19.7 H Plt Count Seg Neuts % (Manual) Lymphocytes % (Manual) 10.0 L Monocytes % (Manual) Eosinophils % (Manual) 10.0 H Basophils % (Manual) Nucleated RBC % Seg Neutrophils # Man 0.4 L Abs Lymphs (Manual) Lymphocytes # (Manual) 0.1 L Basophils # (Manual) PT INR APTT Heparin Anti-Xa Level POC ABG pH POC ABG pCO2 POC ABG pO2 Sodium Potassium Chloride Carbon Dioxide 13 L BUN 126 H Creatinine 7.7 H Glucose 153 H POC Glucose 190 H Lactic Acid Calcium 7.8 L Phosphorus Magnesium Iron TIBC Ferritin AST ALT Total Creatine Kinase Total Protein Albumin Vitamin B12 Folate TSH Free T4 Urine WBC (Auto) Urine Creatinine Urine Chloride Urine Total Protein CSF VDRL Lymph Enumerat CD4/CD8 Absolute CD3 Count % CD4 Cells Absolute CD4 Count % CD8 Cells Absolute CD19 Count T.pallidum Ab (FTA-ABS) HIV-1 RNA PCR copies/ml HIV-1 RNA (PCR) log Miscellaneous Test 10/15/18 10/15/18 10/15/18 04:15 04:15 05:03 WBC 0.8 L* RBC 2.73 L Hgb 8.2 L Hct 24.4 L RDW 18.8 H Plt Count Seg Neuts % (Manual) Lymphocytes % (Manual) Monocytes % (Manual) Eosinophils % (Manual) Basophils % (Manual) Nucleated RBC % Seg Neutrophils # Man Abs Lymphs (Manual) Lymphocytes # (Manual) Basophils # (Manual) PT INR APTT Heparin Anti-Xa Level POC ABG pH POC ABG pCO2 POC ABG pO2 Sodium 148 H Potassium 2.9 L* Chloride 108.5 H Carbon Dioxide 17 L BUN 127 H Creatinine 6.1 H Glucose 154 H POC Glucose 170 H Lactic Acid Calcium 7.7 L Phosphorus Magnesium Iron TIBC Ferritin AST ALT Total Creatine Kinase Total Protein 6.0 L Albumin 2.3 L Vitamin B12 Folate TSH Free T4 Urine WBC (Auto) Urine Creatinine Urine Chloride Urine Total Protein CSF VDRL Lymph Enumerat CD4/CD8 Absolute CD3 Count % CD4 Cells Absolute CD4 Count % CD8 Cells Absolute CD19 Count T.pallidum Ab (FTA-ABS) HIV-1 RNA PCR copies/ml HIV-1 RNA (PCR) log Miscellaneous Test 10/15/18 10/15/18 10/15/18 12:23 17:42 17:49 WBC RBC Hgb Hct RDW Plt Count Seg Neuts % (Manual) Lymphocytes % (Manual) Monocytes % (Manual) Eosinophils % (Manual) Basophils % (Manual) Nucleated RBC % Seg Neutrophils # Man Abs Lymphs (Manual) Lymphocytes # (Manual) Basophils # (Manual) PT INR APTT Heparin Anti-Xa Level POC ABG pH POC ABG pCO2 POC ABG pO2 Sodium 146 H Potassium 3.0 L Chloride 109.4 H Carbon Dioxide 16 L BUN 124 H Creatinine 5.6 H Glucose 162 H POC Glucose 180 H 173 H Lactic Acid Calcium 7.5 L Phosphorus Magnesium Iron TIBC Ferritin AST ALT Total Creatine Kinase Total Protein Albumin Vitamin B12 Folate TSH Free T4 Urine WBC (Auto) Urine Creatinine Urine Chloride Urine Total Protein CSF VDRL Lymph Enumerat CD4/CD8 Absolute CD3 Count % CD4 Cells Absolute CD4 Count % CD8 Cells Absolute CD19 Count T.pallidum Ab (FTA-ABS) HIV-1 RNA PCR copies/ml HIV-1 RNA (PCR) log Miscellaneous Test 10/15/18 10/16/18 10/16/18 23:56 05:37 07:50 WBC 1.1 L* RBC 2.70 L Hgb 8.0 L Hct 24.4 L RDW 18.9 H Plt Count Seg Neuts % (Manual) Lymphocytes % (Manual) Monocytes % (Manual) 8.0 H Eosinophils % (Manual) Basophils % (Manual) Nucleated RBC % Seg Neutrophils # Man 0.7 L Abs Lymphs (Manual) Lymphocytes # (Manual) 0.2 L Basophils # (Manual) PT INR APTT Heparin Anti-Xa Level POC ABG pH POC ABG pCO2 POC ABG pO2 Sodium Potassium Chloride Carbon Dioxide BUN Creatinine Glucose POC Glucose 164 H 152 H Lactic Acid Calcium Phosphorus Magnesium Iron TIBC Ferritin AST ALT Total Creatine Kinase Total Protein Albumin Vitamin B12 Folate TSH Free T4 Urine WBC (Auto) Urine Creatinine Urine Chloride Urine Total Protein CSF VDRL Lymph Enumerat CD4/CD8 Absolute CD3 Count % CD4 Cells Absolute CD4 Count % CD8 Cells Absolute CD19 Count T.pallidum Ab (FTA-ABS) HIV-1 RNA PCR copies/ml HIV-1 RNA (PCR) log Miscellaneous Test 10/16/18 10/16/18 10/16/18 07:50 12:35 18:00 WBC RBC Hgb Hct RDW Plt Count Seg Neuts % (Manual) Lymphocytes % (Manual) Monocytes % (Manual) Eosinophils % (Manual) Basophils % (Manual) Nucleated RBC % Seg Neutrophils # Man Abs Lymphs (Manual) Lymphocytes # (Manual) Basophils # (Manual) PT INR APTT Heparin Anti-Xa Level POC ABG pH POC ABG pCO2 POC ABG pO2 Sodium 147 H Potassium 3.0 L Chloride Carbon Dioxide 15 L BUN 143 H Creatinine 6.2 H Glucose 182 H POC Glucose 122 H 160 H Lactic Acid Calcium 8.1 L Phosphorus Magnesium Iron TIBC Ferritin AST ALT Total Creatine Kinase Total Protein Albumin Vitamin B12 Folate TSH Free T4 Urine WBC (Auto) Urine Creatinine Urine Chloride Urine Total Protein CSF VDRL Lymph Enumerat CD4/CD8 Absolute CD3 Count % CD4 Cells Absolute CD4 Count % CD8 Cells Absolute CD19 Count T.pallidum Ab (FTA-ABS) HIV-1 RNA PCR copies/ml HIV-1 RNA (PCR) log Miscellaneous Test 10/16/18 10/17/18 10/17/18 23:32 05:03 11:32 WBC RBC Hgb Hct RDW Plt Count Seg Neuts % (Manual) Lymphocytes % (Manual) Monocytes % (Manual) Eosinophils % (Manual) Basophils % (Manual) Nucleated RBC % Seg Neutrophils # Man Abs Lymphs (Manual) Lymphocytes # (Manual) Basophils # (Manual) PT INR APTT Heparin Anti-Xa Level POC ABG pH POC ABG pCO2 POC ABG pO2 Sodium Potassium Chloride Carbon Dioxide BUN Creatinine Glucose POC Glucose 131 H 112 H 149 H Lactic Acid Calcium Phosphorus Magnesium Iron TIBC Ferritin AST ALT Total Creatine Kinase Total Protein Albumin Vitamin B12 Folate TSH Free T4 Urine WBC (Auto) Urine Creatinine Urine Chloride Urine Total Protein CSF VDRL Lymph Enumerat CD4/CD8 Absolute CD3 Count % CD4 Cells Absolute CD4 Count % CD8 Cells Absolute CD19 Count T.pallidum Ab (FTA-ABS) HIV-1 RNA PCR copies/ml HIV-1 RNA (PCR) log Miscellaneous Test Allied health notes reviewed: nursing
[2018-10-18] MEDS: SYNTHROID PO SCH (08:49)
[2018-10-18] MEDS ORDERED: ZITHROMAX PO SCH (10:00)
--- NOTE | 2018-10-18 10:06 | Progress Note ---
Assessment and Plan - Patient Problems (1) Acute kidney failure with tubular necrosis Current Visit: Yes Status: Acute Plan to address problem: Acute tubular necrosis secondary to sepsis, initiated on HD on 10/16/18. Pt still with significant azotemia/volume overload, will cont HD on MWF schedule with target UF 1-2L as tolerated. Use 4K bath given persistent hypokalemia. avoid further nephrotoxins, incl. NSAIDs IV contrast as possible. Will monitor I/Os lytes/renal parameters closely and make further recommendations (2) Sepsis Current Visit: Yes Status: Acute Plan to address problem: Continue AB per ID. 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 Continue treatment for both per the infectious disease. 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 Improved. Subjective Date of service: 10/18/18 Principal diagnosis: MAL/ATN Interval history: Pt remains intubated, opening eyes spontaneously, not following commands Objective - Vital Signs Vital signs: Vital Signs - 12hr 10/17/18 10/17/18 10/17/18 23:00 23:33 23:34 Temperature 98.9 F Pulse Rate 91 H 88 Pulse Rate [ Bases] Pulse Rate [ From Monitor] Respiratory 17 Rate Respiratory Rate [Bases] Blood Pressure 135/73 O2 Sat by Pulse 95 Oximetry 10/17/18 10/18/18 10/18/18 23:38 00:00 01:00 Temperature Pulse Rate 88 87 85 Pulse Rate [ Bases] Pulse Rate [ From Monitor] Respiratory 14 22 19 Rate Respiratory Rate [Bases] Blood Pressure 125/70 127/72 127/67 O2 Sat by Pulse 100 100 94 Oximetry 10/18/18 10/18/18 10/18/18 02:00 03:00 03:19 Temperature Pulse Rate 83 88 Pulse Rate [ 85 Bases] Pulse Rate [ From Monitor] Respiratory 16 18 Rate Respiratory 19 Rate [Bases] Blood Pressure 130/69 134/72 O2 Sat by Pulse 95 97 Oximetry 10/18/18 10/18/18 10/18/18 03:20 03:30 03:31 Temperature 98.8 F Pulse Rate 84 Pulse Rate [ 88 Bases] Pulse Rate [ From Monitor] Respiratory 14 Rate Respiratory 19 Rate [Bases] Blood Pressure 134/72 O2 Sat by Pulse 100 Oximetry 10/18/18 10/18/18 10/18/18 04:00 05:00 06:00 Temperature Pulse Rate 89 85 81 Pulse Rate [ Bases] Pulse Rate [ From Monitor] Respiratory 20 16 16 Rate Respiratory Rate [Bases] Blood Pressure 131/68 129/69 135/76 O2 Sat by Pulse 98 96 100 Oximetry 10/18/18 10/18/18 10/18/18 07:00 07:30 07:32 Temperature 98.3 F Pulse Rate 82 89 Pulse Rate [ Bases] Pulse Rate [ From Monitor] Respiratory 18 Rate Respiratory Rate [Bases] Blood Pressure 135/74 153/94 O2 Sat by Pulse 99 100 Oximetry 10/18/18 10/18/18 10/18/18 07:35 07:37 08:00 Temperature Pulse Rate 91 H 83 Pulse Rate [ 90 Bases] Pulse Rate [ 85 From Monitor] Respiratory 23 15 Rate Respiratory 18 Rate [Bases] Blood Pressure 153/94 139/85 O2 Sat by Pulse 99 98 Oximetry 10/18/18 08:01 Temperature Pulse Rate Pulse Rate [ 84 Bases] Pulse Rate [ From Monitor] Respiratory Rate Respiratory 18 Rate [Bases] Blood Pressure O2 Sat by Pulse Oximetry - General Appearance General appearance: well-developed, appears stated age, intubated EENT: ATNC, PERRL, mucous membranes moist Neck: no JVD Respiratory: Present: Clear to Ascultation Cardiology: regular, S1S2 Gastrointestinal: normoactive bowel sounds Integumentary: no rash, other (2+ edema b/l LE ) Neurologic: confused, disoriented, other (intubated ) - Lab 10/16/18 07:50 10/16/18 07:50 Most recent lab results Calcium 8.1 mg/dL (8.4-10.2) L 10/16/18 07:50 Phosphorus 8.50 mg/dL (2.5-4.5) H 10/14/18 09:40 Magnesium 2.10 mg/dL (1.7-2.3) 10/14/18 09:40 Urine Creatinine 57.5 mg/dL (0.1-20.0) H 10/11/18 05:40 Urine Sodium 70 mmol/L 10/11/18 05:40 Urine Total Protein 44 mg/dL (5-11.8) H 10/11/18 05:40 Medications & Allergies - Medications Allergies/Adverse Reactions: Allergies No Known Allergies Allergy (Unverified 09/11/18 17:50) Home Medications: Home Medications Medication Instructions Recorded Confirmed Last Taken Type No Known Home Medications [No 10/02/18 10/02/18 Unknown History Reported Home Medications] Active Medications: Generic Name Dose Route Start Last Admin Trade Name Freq PRN Reason Stop Dose Admin Acetaminophen 650 mg 09/11/18 19:30 10/09/18 16:32 Tylenol PO 650 mg Q4H PRN Administration Pain MILD(1-3)/Fever >100.5/RIVERA Acetaminophen 650 mg 09/21/18 07:39 10/07/18 21:15 Tylenol ID 650 mg Q4H PRN Administration Fever >101 Albuterol 2.5 mg 09/11/18 19:30 09/16/18 06:09 Proventil IH 2.5 mg Q4HRT PRN Administration Shortness Of Breath Albuterol 2.5 mg 09/20/18 20:00 10/18/18 07:37 Proventil IH 2.5 mg Q6HRT GIA Administration Amiodarone HCl 200 mg 09/27/18 15:00 10/17/18 21:55 Cordarone PO 200 mg BID GIA Administration Lipase/Protease/Amylase 1 each 09/30/18 12:01 Pancrealen Gibbs 10,500 Unit FEEDTUBE PRN PRN For Clogged Feeding Tube Atovaquone 750 mg 09/21/18 10:00 10/17/18 21:54 Mepron PO 750 mg BID GIA Administration Azithromycin 1,200 mg 10/18/18 10:00 Zithromax PO [facility] [place] Emtricitabine 200 mg 10/13/18 10:00 10/17/18 09:47 Emtriva PO 200 mg Q96H GIA Administration Famotidine 20 mg 10/10/18 10:00 10/17/18 09:46 Pepcid PO 20 mg DAILY GIA Administration Fluconazole 200 mg 10/05/18 12:00 10/17/18 09:46 Diflucan PO 200 mg QDAY GIA Administration Folic Acid 1 mg 10/07/18 10:00 10/17/18 09:46 Folvite PO 1 mg QDAY GIA Administration Glycopyrrolate 2 mg 10/07/18 18:00 10/18/18 05:18 Robinul PO 2 mg Q6HR GIA Administration Heparin Sodium (Porcine) 5,000 unit 10/05/18 14:00 10/18/18 05:20 Heparin SUB-Q 5,000 unit Q8HR GIA Administration Hydrophilic Ointment 1 applic 09/21/18 01:46 09/22/18 03:46 Vaseline Lip Therapy TP 1 applic Q2HR PRN Administration Dry Lips Ganciclovir Sodium 150 mg/ 250 mls @ 100 mls/hr 10/12/18 10:00 10/17/18 09:47 Sodium Chloride IV 100 mls/hr MoWeFr GIA Administration Sodium Chloride 100 mls @ 999 mls/hr 10/15/18 12:33 Nacl 0.9% IV CHERYL PRN Hypotension Sodium Chloride 100 mls @ 999 mls/hr 10/17/18 10:39 Nacl 0.9% IV CHERYL PRN Hypotension Levetiracetam 750 mg 10/12/18 22:00 10/17/18 21:54 Keppra PO 750 mg BID [facility] Administration Levothyroxine Sodium 25 mcg 09/19/18 06:00 10/18/18 08:49 Synthroid PO Not Given DAILY@0600 [facility] Metoprolol Tartrate 12.5 mg 10/10/18 13:00 10/17/18 21:55 Lopressor PO 12.5 mg BID [facility] Administration Multi-Ingred Cream/Lotion/Oil/Oint 1 applic 09/21/18 01:46 Artificial Tears Ophth Oint OU Q4HR PRN Dry Eye(s) Ondansetron HCl 4 mg 09/11/18 19:30 Zofran IV Q8H PRN Nausea And Vomiting Scopolamine 1 each 09/18/18 18:00 10/15/18 17:25 Transderm-Scop TD 1 each Q3D GIA Administration Simple Syrup 15 ml 09/30/18 12:01 10/07/18 06:18 Simple Syrup FEEDTUBE 15 ml PRN PRN Administration Hypoglycemia Simple Syrup 15 ml 10/15/18 10:45 Simple Syrup FEEDTUBE PRN PRN Hypoglycemia Simple Syrup 30 ml 10/15/18 10:45 Simple Syrup FEEDTUBE PRN PRN Hypoglycemia Sodium Bicarbonate 325 mg 10/15/18 10:45 Sodium Bicarbonate FEEDTUBE PRN PRN For Clogged Feeding Tube Sodium Chloride 10 ml 09/11/18 22:00 10/17/18 21:56 Sodium Chloride Flush Syringe 10 Ml IV 10 ml BID GIA Administration Sodium Chloride 10 ml 09/11/18 19:30 Sodium Chloride Flush Syringe 10 Ml IV PRN PRN LINE FLUSH Tenofovir Disoproxil Fumarate 300 mg 10/13/18 10:00 10/17/18 09:46 Viread PO 300 mg Q96H GIA Administration
[2018-10-18] MEDS: DIFLUCAN PO SCH (10:33)
[2018-10-18] MEDS: TIVICAY PO SCH (10:34)
[2018-10-18] MEDS: KEPPRA PO SCH ×2 (10:34→21:50)
[2018-10-18] MEDS: FOLVITE PO SCH (10:34)
[2018-10-18] MEDS: LOPRESSOR PO SCH ×2 (10:34→21:47)
[2018-10-18] MEDS: PEPCID PO SCH (10:34)
[2018-10-18] MEDS: CORDARONE PO SCH ×2 (10:34→21:52)
[2018-10-18] MEDS: MEPRON PO SCH ×2 (10:35→21:51)
[2018-10-18] MEDS: SODIUM CHLORIDE FLUSH SYRINGE 10 ML IV SCH ×2 (10:36→21:50)
--- NOTE | 2018-10-18 10:39 | Progress Note ---
Assessment and Plan Cultures: 09/11/2018 blood culture: no growth 09/13/2018 serum cryptococcus ag neg 09/14/2018 CSF cryptococcus ag neg 09/14/2018 stool Nona 09/15/2018 stool +Giardia ag 09/19/2018 CSF cryptococcus ag neg 09/21/2018 tracheal aspirate culture: Nona albicans 09/23/2018 blood culture: No growth 09/23/2018 Fungal blood culture: no growth thus far 10/09/2018 blood culture: No growth A/P: 33 y/o male with no PMH; admitted on 09/11/2018 due to 4 days-AMS/behavioral changes, nausea, vomiting, diarrhea, weight loss and cough: 1) Low grade fevers: resolved ? likely IRIS related (ART started on 09/30) versus NGT-associated sinusitis/mastoiditis versus CMV encephalitis. shock resolved. Completed 10 days of Ceftriaxone, off since 10/03/2018. On ganciclovir for disseminated CMV. On vanco/cefepime for sinusitis/mastoiditis. 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 WBC remains low could be from CMV v/s ganciclovir. Clinically better - CMV DNA PCR 09/16/2018 is 1,058,978, 6 log - CMV DNA PCR 09/26/2018 is 710K, 5.85 log - CMV DNA PCR 10/03/2018 is 262K, 5.4 log 3) Acute respiratory failure: still on the vent minimal settings, mainly due to mental status issues. PJP DFA negative. CXR stable without pneumonia. 4) Acute encephalopathy: slighltly better; possibly from neurosyphilis and CMV confirmed encephalitis v/s metabolic etiology. Of note, MRI did not show ventriculitis. CSF YAYO virus DNA PCR neg. Toxo IgG negative. He has received 20 days of Pen G IV and Ganciclovir with minimal improvement, still somnolent and nystagmus noted ? neurosyphilis treatement failure ? other etiologies like m etabolic, CVA. Discussed with neuro Dr Nazario EEG x 2 no epileptic activity - "Up to 4 EEGs over several months may be needed to capture interictal epileptiform activity". - repeat LP 10/10/3018 WBC 10, RBC 22K (traumatic), glu 47, prot 84 from 194, VDRL reactive 1:2 - Seizures reported on 10/09-10/10 - CT head done showed mild atrophy. No acute intracranial abnormalities. Paranasal sinus disease and new opacification of multiple mastoid air cells on the right and a few on the left suggesting acute mastoiditis. - MRI brain repeat 10/10 significant bilateral mastoiditis, generalized brain atrophy and stable paranasal sinusitis - CSF CMV DNA PCR on 10/10/2018 is 43,564 4.6 log 5) Neurosyphilis: CSF VDRL positive, off Ceftriaxone and back on IV Penicillin completed 21 days 6) Diarrhea: likely due to Giardiasis as Giardia antigen positive in stool, in immunocompromised patient. Completed several days of Flagyl, stopped on 10/03/2018. 7) Oral candidiasis: on fluconazole, will need to continue as prophylaxis till immune reconstitution. 8) A.fib: cardiology following. On Amiodarone. 9) HIV/AIDS: newly diagnosed. Risk factor is MSM behavior. CD4=4. VL=50,700. 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 We started him on Tenofovir, Emtricitabine + Dolutegravir on 09/30/2018, watch closely for IRIS. 10) Neutropenia: likely from HIV/CMV myelosuppression. Also probably worse from ganciclovir. r/o disseminated MAC, thus far cultures negative. 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 started on HD 12) NGT-associated sinusitis/mastoiditis, fully treated for 7 days. NGT changed to OGT. Recs: - to have PEG/trach - continue IV Ganciclovir D27 at 5 mg/kg 3 times a week - renally adjusted again today, continue till CMV PCR is <200 - renal con board - all antibiotics are renally adjusted for CrCl < 10 - completed IV Penicillin G 24 million units daily for 21 days on 10/08/2018 - f/u serum CMV DNA PCR tordered 10/17 - continue atovaquone and azithromycin prophylaxis - continue fluconazole 200 mg daily PO as prophylaxis - continue HAART: Tenofovir, Emtricitabine + Dolutegravir watch closely for IRIS - renally adjusted today - monitor daily CBC, BMP - s/p neupogen 1 dose on 10/05/2018, hematology on board agree with additional Neupogen as needed from ID standpoint Overall prognosis poor/complex case Will follow Alayna Menendez MD Infectious Diseases [employer] [facility] M [phone] O [phone] Subjective Date of service: 10/18/18 Principal diagnosis: MAL/ATN Interval history: Patient remains alert follows simple commands inconsistently, intubated on CPAP, open eyes, no fever ROS: unable to obtain Objective - Exam Narrative Exam: Constitutional: Intubated alert follows simple commands inconsistently open eyes in NAD Head, Ears, Nose: Normocephalic, atraumatic. External ears, nose normal Eyes: Conjunctivae/corneas clear. No icterus. No ptosis.no nystagmus Neck:no JVD, left anterior neck large hard nodule non tender Oral: ETT, OGT Cardiovascular: tachycardic Respiratory: distant BS GI: Soft, non-tender; bowel sounds normal. No peritoneal signs Musculoskeletal: No pedal edema, no cyanosis. Skin: No rash or abscess. Hem/Lymphatic: No palpable cervical or supraclavicular nodes. No lymphangitis Psych: alert Neurological: alert, moves right hand, squeezed his left hand upon request PICC line 2/6 HD femoral - Constitutional Vitals: Vital Signs Temp Pulse Resp BP Pulse Ox 98.3 F 83 18 145/89 100 10/18/18 07:30 10/18/18 10:34 10/18/18 08:01 10/18/18 10:34 10/18/18 08:00 Temperature -Last 24 Hours Temperature 98.3 F Temperature 98.8 F Temperature 98.9 F Temperature 98.8 F Temperature 97.7 F Temperature 98.6 F Temperature 96.2 F Temperature 98.0 F - Labs CBC & Chem 7: 10/16/18 07:50 10/16/18 07:50 Labs: Abnormal lab results 10/17/18 Range/Units 11:32 POC Glucose 149 H (70-105)
--- NOTE | 2018-10-18 13:58 | Progress Note ---
Assessment and Plan Assessment and plan: ARF - Patient's creatinine level is trending up - nephrology is following and he started on hemodialysis 10/16/18. Acute hypoxemic respiratory failure - Patient has pneumonia and altered mental status - Patient is intubated and on mechanical ventilation - Pulmonary is following Disseminated CMV viremia: -Treated with IV ganciclovir and currently he is on prophylaxis Toxic metabolic encephalopathy. 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 Of note, MRI did not show ventriculitis. Neurology evaluation. - Patient showed improvement follows simple commands A. fib with RVR. Converted to NSR. cont Amiodarone and metoprolol. Rate controlled Neurosyphilis: CSF VDRL positive, patient finished a course of IV penicillin 21 days Diarrhea. Resolved, etiology likely secondary to Giardia. Giardia antigen positive in stool. Completed a course of Flagyl. Oral candidiasis. Fluconazole HIV/AIDS. New Diagnosis. Started on HAART on 09/30, Tenofovir, Emtricitabine + Dolutegravir watch closely for IRIS continue atovaquone and azithromycin prophylaxis Neutropenia. 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 Also probably worse from ganciclovir. r/o disseminated MAC, thus far cultures negative. WBC count t his morning was 0.5, progressively declining. Hematology saw him and continue granix. Prognosis poor. Dr. Mcpherson reports that the sister does not want Trach and PEG. The high probability of a clinically significant, sudden or life threatening deterioration of the [neurological, respiratory and cardiac] system(s) required my full and direct attention, intervention and personal management. The aggregate critical care time was [31] minutes. This time is in addition to time spent performing reported procedures but includes the following: [x] Data Review and interpretation [x] Patient assessment and monitoring of vital signs [x] Documentation [x] Medication orders and management History Interval history: Patient is 33 yo initially presented with diarrhea, found to have pneumonia, sepsis, HIV/AIDS(new diagnosis) with CD4 count of 4. He was started on abx for PJP. His mental status has worsened with confusion, lethargy. LP done . He was diagnosed with neurosyphilis. Started on Penicillin. Closest family is sister in [place], and dr. Baltazar spoke to her several times about diagnosis but did not tell her about HIV/AIDS because of patient confidentiality. The patient decompensated on 09/20/18 with acute hypoxemic respiratory failure and worsening toxic metabolic encephalopathy requiring transfer to ICU and intubation. He now remains on mechanical ventilation. The patient was also noted to develop SVT requiring amiodarone drip as well as heparin drip. Severe Sepsis. Etiology secondary to bacterial pneumonia +/- gastroenteritis with newly diagnosed with HIV. Fevers have re-emerged. Repeat blood cx per ID. the patient was initiated on hemodialysis 10/16/18 for renal failure secondary to ATN from severe sepsis. Hospitalist Physical - Constitutional Vitals: Temp Pulse Resp BP Pulse Ox 98.2 F 82 20 136/85 100 10/18/18 11:35 10/18/18 13:29 10/18/18 13:29 10/18/18 13:29 10/18/18 13:29 General appearance: Present: mild distress, other (orally intubated, minimal response--right side spontaneous movement) - EENT Eyes: Present: PERRL, EOM intact ENT: hearing intact, clear oral mucosa, dentition normal - Neck Neck: Present: supple, normal ROM - Respiratory Respiratory effort: normal Respiratory: bilateral: CTA - Cardiovascular Rhythm: regular Heart Sounds: Present: S1 & S2. Absent: gallop, rub - Extremities Extremities: no ischemia, No edema, Full ROM - Abdominal General gastrointestinal: soft, non-tender, non-distended, normal bowel sounds - Integumentary Integumentary: Present: clear, warm, dry - Neurologic Neurologic: CNII-XII intact, moves all extremities Results - Labs CBC & Chem 7: 10/16/18 07:50 10/16/18 07:50 Labs: Laboratory Last Values WBC 1.1 K/mm3 (4.5-11.0) L* 10/16/18 07:50 RBC 2.70 M/mm3 (3.65-5.03) L 10/16/18 07:50 Hgb 8.0 gm/dl (11.8-15.2) L 10/16/18 07:50 Hct 24.4 % (35.5-45.6) L 10/16/18 07:50 MCV 90 fl (84-94) 10/16/18 07:50 MCH 30 pg (28-32) 10/16/18 07:50 MCHC 33 % (32-34) 10/16/18 07:50 RDW 18.9 % (13.2-15.2) H 10/16/18 07:50 Plt Count 208 K/mm3 (140-440) 10/16/18 07:50 [place] % (Auto) Senior Engineering Tech 09/29/18 05:00 Eos % (Auto) Senior Engineering Tech 10/13/18 04:05 Baso % (Auto) Senior Engineering Tech 10/13/18 04:05 Add Manual Diff Complete 10/16/18 07:50 Total Counted 50 10/16/18 07:50 Seg Neutrophils % Senior Engineering Tech 10/16/18 07:50 Seg Neuts % (Manual) 60.0 % (40.0-70.0) 10/16/18 07:50 Band Neutrophils % 18.0 % 10/16/18 07:50 Lymphocytes % (Manual) 14.0 % (13.4-35.0) 10/16/18 07:50 Reactive Lymphs % (Man) 0 % 10/16/18 07:50 Monocytes % (Manual) 8.0 % (0.0-7.3) H 10/16/18 07:50 Eosinophils % (Manual) 0 % (0.0-4.3) 10/16/18 07:50 Basophils % (Manual) 0 % (0.0-1.8) 10/16/18 07:50 Metamyelocytes % 0 % 10/16/18 07:50 Myelocytes % 0 % 10/16/18 07:50 Promyelocytes % 0 % 10/16/18 07:50 Blast Cells % 0 % 10/16/18 07:50 Nucleated RBC % Not Reportable 10/16/18 07:50 Seg Neutrophils # Man 0.7 K/mm3 (1.8-7.7) L 10/16/18 07:50 Band Neutrophils # 0.2 K/mm3 10/16/18 07:50 Abs Lymphs (Manual) 309 cells/uL (850-3900) L 09/13/18 12:29 Lymphocytes # (Manual) 0.2 K/mm3 (1.2-5.4) L 10/16/18 07:50 Abs React Lymphs (Man) 0.0 K/mm3 10/16/18 07:50 Monocytes # (Manual) 0.1 K/mm3 (0.0-0.8) 10/16/18 07:50 Eosinophils # (Manual) 0.0 K/mm3 (0.0-0.4) 10/16/18 07:50 Basophils # (Manual) 0.0 K/mm3 (0.0-0.1) 10/16/18 07:50 Metamyelocytes # 0.0 K/mm3 10/16/18 07:50 Myelocytes # 0.0 K/mm3 10/16/18 07:50 Promyelocytes # 0.0 K/mm3 10/16/18 07:50 Blast Cells # 0.0 K/mm3 10/16/18 07:50 WBC Morphology Not Reportable 10/16/18 07:50 Hypersegmented Neuts Not Reportable 10/16/18 07:50 Hyposegmented Neuts Not Reportable 10/16/18 07:50 Hypogranular Neuts Not Reportable 10/16/18 07:50 Smudge Cells Not Reportable 10/16/18 07:50 Toxic Granulation Not Reportable 10/16/18 07:50 Toxic Vacuolation Not Reportable 10/16/18 07:50 Dohle Bodies Not Reportable 10/16/18 07:50 Pelger-Huet Anomaly Not Reportable 10/16/18 07:50 Giovanna Rods Not Reportable 10/16/18 07:50 Platelet Estimate Not Reportable 10/16/18 07:50 Clumped Platelets Not Reportable 10/16/18 07:50 Plt Clumps, EDTA Not Reportable 10/16/18 07:50 Large Platelets Not Reportable 10/16/18 07:50 Giant Platelets Not Reportable 10/16/18 07:50 Platelet Satelliting Not Reportable 10/16/18 07:50 Plt Morphology Comment Not Reportable 10/16/18 07:50 RBC Morphology Not Reportable 10/16/18 07:50 Dimorphic RBCs Not Reportable 10/16/18 07:50 Polychromasia Not Reportable 10/16/18 07:50 Hypochromasia Not Reportable 10/16/18 07:50 Poikilocytosis 1+ 10/16/18 07:50 Anisocytosis 1+ 10/16/18 07:50 Microcytosis Not Reportable 10/16/18 07:50 Macrocytosis Not Reportable 10/16/18 07:50 Spherocytes Not Reportable 10/16/18 07:50 Pappenheimer Bodies Not Reportable 10/16/18 07:50 Sickle Cells Not Reportable 10/16/18 07:50 Target Cells Not Reportable 10/16/18 07:50 Tear Drop Cells Not Reportable 10/16/18 07:50 Ovalocytes Not Reportable 10/16/18 07:50 Stomatocytes 1+ 09/29/18 05:00 Helmet Cells Not Reportable 10/16/18 07:50 [place] Bodies Not Reportable 10/16/18 07:50 [place] Rings Not Reportable 10/16/18 07:50 [place] Cells Not Reportable 10/16/18 07:50 Bite Cells Not Reportable 10/16/18 07:50 Crenated Cell Not Reportable 10/16/18 07:50 Elliptocytes Not Reportable 10/16/18 07:50 Acanthocytes (Spur) Not Reportable 10/16/18 07:50 Rouleaux Not Reportable 10/16/18 07:50 Hemoglobin C Crystals Not Reportable 10/16/18 07:50 Schistocytes Not Reportable 10/16/18 07:50 Malaria parasites Not Reportable 10/16/18 07:50 Kieran Bodies Not Reportable 10/16/18 07:50 Hem Pathologist Commnt No 10/16/18 07:50 PT 16.0 Sec. (12.2-14.9) H 10/10/18 08:09 INR 1.20 (0.87-1.13) H 10/10/18 08:09 APTT 40.9 Sec. (24.2-36.6) H 09/21/18 15:00 Heparin Anti-Xa Level 0.35 U.I./ml (0.3-0.7) 10/05/18 10:19 POC ABG pH 7.336 (7.35-7.45) L 10/12/18 13:30 POC ABG pCO2 31.5 (35-45) L 10/12/18 13:30 POC ABG pO2 122 (80-105) H 10/12/18 13:30 POC ABG HCO3 16.8 10/12/18 13:30 POC ABG Total CO2 18 10/12/18 13:30 POC ABG O2 Sat 99 10/12/18 13:30 POC ABG Base Excess -9 10/12/18 13:30 FiO2 25 % 10/12/18 13:30 Sodium 147 mmol/L (137-145) H 10/16/18 07:50 Potassium 3.0 mmol/L (3.6-5.0) L 10/16/18 07:50 Chloride 106.9 mmol/L (98-107) 10/16/18 07:50 Carbon Dioxide 15 mmol/L (22-30) L 10/16/18 07:50 Anion Gap 28 mmol/L 10/16/18 07:50 BUN 143 mg/dL (9-20) H 10/16/18 07:50 Creatinine 6.2 mg/dL (0.8-1.5) H 10/16/18 07:50 Estimated GFR 13 ml/min 10/16/18 07:50 BUN/Creatinine Ratio 23 % 10/16/18 07:50 Glucose 182 mg/dL (75-100) H 10/16/18 07:50 POC Glucose 93 (70-105) 10/18/18 11:18 Lactic Acid 0.90 mmol/L (0.7-2.0) 09/11/18 20:17 Calcium 8.1 mg/dL (8.4-10.2) L 10/16/18 07:50 Phosphorus 8.50 mg/dL (2.5-4.5) H 10/14/18 09:40 Magnesium 2.10 mg/dL (1.7-2.3) 10/14/18 09:40 Iron 35 ug/dL (49-181) L 10/06/18 09:40 TIBC 157 mcg/dL (250-450) L 10/06/18 09:40 Ferritin 1126.0 ng/mL (13.0-400.0) H 10/06/18 09:40 Total Bilirubin < 0.20 mg/dL (0.1-1.2) 10/15/18 04:15 Direct Bilirubin < 0.2 mg/dL (0-0.2) 09/13/18 07:31 AST 36 units/L (5-40) 10/15/18 04:15 ALT 32 units/L (7-56) 10/15/18 04:15 Alkaline Phosphatase 66 units/L (35-129) 10/15/18 04:15 Ammonia 27.0 umol/L (25-60) 10/03/18 13:23 Total Creatine Kinase 113 units/L (55-170) 10/11/18 05:20 CK-MB (CK-2) 2.6 ng/mL (0.0-4.0) 10/11/18 05:20 CK-MB (CK-2) Rel Index 0.5 (0-4) 09/21/18 04:25 NT-Pro-B Natriuret Pep 145.9 pg/mL (0-450) 09/18/18 16:07 Total Protein 6.0 g/dL (6.3-8.2) L 10/15/18 04:15 Albumin 2.3 g/dL (3.9-5) L 10/15/18 04:15 Albumin/Globulin Ratio 0.6 % 10/15/18 04:15 Vitamin B12 934.5 pg/mL (211-911) H 09/16/18 11:41 Folate 6.71 ng/mL (7.3-26.0) L 10/06/18 09:40 TSH 5.190 mlU/mL (0.270-4.200) H 09/18/18 12:46 Free T4 0.75 ng/dL (0.76-1.46) L 09/18/18 12:46 Urine Color Yellow (Yellow) 10/11/18 05:40 Urine Turbidity Slightly-cloudy (Clear) 10/11/18 05:40 Urine pH 5.0 (5.0-7.0) 10/11/18 05:40 Ur Specific [place] 1.012 (1.003-1.030) 10/11/18 05:40 Urine Protein 30 mg/dl mg/dL (Negative) 10/11/18 05:40 Urine Glucose (UA) Neg mg/dL (Negative) 10/11/18 05:40 Urine Ketones Neg mg/dL (Negative) 10/11/18 05:40 Urine Blood Mod (Negative) 10/11/18 05:40 Urine Nitrite Neg (Negative) 10/11/18 05:40 Urine Bilirubin Neg (Negative) 10/11/18 05:40 Urine Urobilinogen < 2.0 mg/dL (<2.0) 10/11/18 05:40 Ur Leukocyte Esterase Neg (Negative) 10/11/18 05:40 Urine WBC (Auto) 8.0 /HPF (0.0-6.0) H 10/11/18 05:40 Urine RBC (Auto) 45.0 /HPF (0.0-6.0) 10/11/18 05:40 U Epithel Cells (Auto) 2.0 /HPF (0-13.0) 10/11/18 05:40 Urine Bacteria (Auto) 1+ /HPF (Negative) 10/11/18 05:40 Urine Mucus Few /HPF 10/11/18 05:40 Urine Creatinine 57.5 mg/dL (0.1-20.0) H 10/11/18 05:40 Protein/Creatinin Ratio 0.77 10/11/18 05:40 Urine Sodium 70 mmol/L 10/11/18 05:40 Urine Chloride 35.1 mmolL (110-250) L 10/11/18 05:40 Urine Total Protein 44 mg/dL (5-11.8) H 10/11/18 05:40 CSF Appearance Bloody 10/10/18 Unknown CSF Color Red 10/10/18 Unknown CSF WBC 10 /mm3 (1-10) 10/10/18 Unknown CSF RBC 69932 /mm3 (0-0) 10/10/18 Unknown CSF Seg Neutrophils 14.0 % (0-6) 10/10/18 Unknown CSF Lymphocytes % 44.0 % (40-80) 10/10/18 Unknown CSF Reactive Lymphs 0 % 10/10/18 Unknown CSF Monocytes % 38.0 % (15-45) 10/10/18 Unknown CSF Eosinophils % 4.0 % 10/10/18 Unknown CSF Basophils 0 % 10/10/18 Unknown CSF Pathologist Review C 10/10/18 Unknown CSF Glucose 47 mg/dL 10/10/18 Unknown CSF Total Protein 84 mg/dL 10/10/18 Unknown CSF VDRL Reactive 1:2 (Nonreactive) H 10/10/18 Unknown Vancomycin Trough 14.3 ug/mL (5.0-20.0) 09/25/18 14:45 Random Vancomycin 10.7 ug/mL (0-40.0) 10/12/18 03:30 Urine Opiates Screen Presumptive negative 09/17/18 15:52 Urine Methadone Screen Presumptive negative 09/17/18 15:52 Ur Barbiturates Screen Presumptive negative 09/17/18 15:52 Ur Phencyclidine Scrn Presumptive negative 09/17/18 15:52 Ur Amphetamines Screen Presumptive negative 09/17/18 15:52 U Benzodiazepines Scrn Presumptive negative 09/17/18 15:52 Urine Cocaine Screen Presumptive negative 09/17/18 15:52 U Marijuana (THC) Screen Presumptive negative 09/17/18 15:52 Drugs of Abuse Note Disclamer 09/17/18 15:52 Complement C3 184 mg/dL (82-185) 10/12/18 09:46 Complement C4 45 mg/dL (15-53) 10/12/18 09:46 Lymph Enumerat CD4/CD8 0.01 (0.86-5.00) L 09/13/18 12:29 % CD3 Cells 71 % (57-85) 09/13/18 12:29 Absolute CD3 Count 220 cells/uL (840-3060) L 09/13/18 12:29 % CD4 Cells 1 % (30-61) L 09/13/18 12:29 Absolute CD4 Count 4 cells/uL (490-1740) L 09/13/18 12:29 % CD8 Cells 70 % (12-42) H 09/13/18 12:29 Absolute CD8 Count 216 cells/uL (180-1170) 09/13/18 12:29 % CD19 Cells 17 % (6-29) 09/13/18 12:29 Absolute CD19 Count 54 cells/uL (110-660) L 09/13/18 12:29 RPR Titer 1:16 09/13/18 12:29 RPR Reactive (Nonreactive) 09/13/18 12:29 T.pallidum Ab (FTA-ABS) Reactive (Nonreactive) H 09/14/18 16:34 C. 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 See scanned results 10/03/18 06:12 Hepatitis A IgM Ab Non-reactive (NonReactive) 09/13/18 12:29 Hep Bs Antigen Non-reactive (Negative) 09/13/18 12:29 Hep B Core IgM Ab Non-reactive (NonReactive) 09/13/18 12:29 Hepatitis C Antibody Non-reactive (NonReactive) 09/13/18 12:29 HIV-1 Antibody See scanned result 09/11/18 19:14 HIV-1 RNA PCR copies/ml 51300 Copies/mL H 09/13/18 12:29 HIV-1 RNA (PCR) log 4.71 Log cps/mL H 09/13/18 12:29 HIV-2 Ab (Immunoblot) See scanned result 09/11/18 19:14 HIV 1&2 Antibody Rapid Reactive (Non React) 09/11/18 19:14 HIV P24 Antigen Non react (Non React) 09/11/18 19:14 Influenza A (Rapid) Negative (Negative) 09/13/18 16:05 Influenza A (RT-PCR) Negative (Negative) 09/13/18 16:05 Influenza B (Rapid) Negative (Negative) 09/13/18 16:05 Influenza B (RT-PCR) Negative (Negative) 09/13/18 16:05 Toxoplasma IgG Ab <7.20 IU/mL (<7.20) 09/16/18 12:09 Miscellaneous Test Flexitest 1 H 10/10/18 Unknown Nutrition/Malnutrition Assess - Dietary Evaluation Nutrition/Malnutrition Findings: Nutrition Notes Start: 09/12/18 17:45 Freq: Status: Active Protocol: Document 10/18/18 12:54 (Rec: 10/18/18 13:02 [email or web address]) Co-Sign 10/18/18 12:54 LP Nutrition Notes Initial or Follow up Reassessment Current Diagnosis Acute Kidney Injury Sepsis Respiratory Failure Other Pertinent Diagnosis On HD, HIV, bilat pneu, gastroenteritis, encephalopathy Current Diet Vital AF at 60 ml/hr Labs/Tests No labs since 3/3 Pertinent Medications Lopressor Height 6 ft Weight 122.7 kg [place] Body Weight (kg) 80.90 BMI 36.6 Subjective/Other Information Pt. f/u for TF change and tolerance. Observed Vital AF infusing at goal rate of 60ml/ hr. Per RN, night RN shut off TF due to residuals of 300 ml. However, current RN has not observed any residuals since TF restart. Percent of energy/protein needs met: 94%/67% Burn Absent Trauma Absent #2 Nutrition Diagnosis Inadequate oral intake Diagnosis Progress(for reassessment Continues documentation) #1 Nutrition Diagnosis Malnutrition Diagnosis Progress(for reassessment Continues documentation) Is patient on ventilator? Yes Is Patient Ambulatory and/or Out of Bed No REE-([place]-confined to bed) 2653.692 Kcal/Kg value to use for calculation 15 Approximate Energy Requirements Using 1841 kcal/Kg Calculation Used for Recommendations Kcal/kg Additional Notes Pro needs: 162 g/day (2g/kg IBW) Fluid: 1 ml/kcal Nutrition Intervention Change Diet Order: Continue TF Nutrition Support: Vital AF 1.2 at 60ml/hr Flush with 100ml q4h Kcal 1,728 Protein (gm) 108 Fluid (mL) 1,203 Goal #1 Continue to meet at least 80% of energy and 65% of protein needs due to renal function. Anticipated Discharge Needs: Unable to determine at this time Follow-Up By: 10/20/18 Additional Comments F/u for stable TF, renal labs
[2018-10-18] MEDS: TRANSDERM-SCOP TD SCH (17:18)
[2018-10-18 18:53] LABS: Myeloperoxidase Antibody <1.0 AI (<1.0)
[2018-10-19] MEDS: PROVENTIL IH SCH ×4 (01:57→19:45)
[2018-10-19] MEDS: HEPARIN SUB-Q SCH ×3 (05:50→21:19)
[2018-10-19] MEDS: ROBINUL PO SCH ×3 (05:50→17:45)
[2018-10-19] MEDS: SYNTHROID PO SCH (06:00)
[2018-10-19 07:23] LABS: Hematocrit 24.7 % (35.5-45.6); Hemoglobin 7.9 gm/dl (11.8-15.2); Mean Corpuscular HGB Conc 32 % (32-34); Mean Corpuscular Volume 89 fl (84-94); Platelet Count 112 K/mm3 (140-440); Red Blood Count 2.77 M/mm3 (3.65-5.03); Red Cell Distribution Width 19.4 % (13.2-15.2)
[2018-10-19 08:34] LABS: Albumin 2.5 g/dL (3.9-5); Calcium 7.9 mg/dL (8.4-10.2)
--- NOTE | 2018-10-19 08:41 | Progress Note ---
Assessment and Plan Severe sepsis: present on admission with fever, tachycardia, hypotension and elevated lactate Acute hypoxemic respiratory failure, required oral intubation for respiratory acidosis, increasing work of breathing and inability to protect airway/control secretions Bilateral pneumonia, improved Acute encephalopathy: improving Meningeal neurosyphilis Oral candidiasis Severe protein calorie malnutrition HIV/AIDS He is MSM and had a 2 years relationship with a HIV positive partner who was taking his ART. He did not use condom consistently. 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 from ATN, requiring HD Hypernatremia Hypokalemia Medical decision making -Continue all current supportive care -Mental status is improving -Trachesotomy and PEG, await availability of the surgical service -Supportive HD/UF per renal service -Free water flushes and hypotonic solution to treat hypernatremia -Serial BMPs --Replete electrolytes as indicated -ABG and CXR as indicated at this time Continue all care as documented below -VAP bundle addressed -Lung protective strategies -Antimicrobials per ID, HAART per ID - continue supplemental oxygen to keep sats > 90% - continue bronchodilators with pulmonary - continue daily SBT's, at this time mental status precludes liberation from MVS - monitor for drug-drug interactions - continue enteral nutrition as tolerated -accucheck with glycemic control - PT/OT/ROM exercises as tolerated - mobility protocol for pressure ulcer prevention - continue GI & VTE prophylaxis -Re-culture if any fevers - continue other care per attending / other consultants Discharge planning- trach with plan to discharge to LTACH for ongoing care and weaning from MVS The high probability of a clinically significant, sudden or life threatening deterioration of the [cardiac, respiratory, renal and neurologic] system(s) required my full and direct attention, intervention and personal management. The aggregate critical care time was [30] minutes. This time is in addition to time spent performing reported procedures but includes the following: [x] Data Review and interpretation [x] Patient assessment and monitoring of vital signs [x] Documentation Subjective Date of service: 10/19/18 Principal diagnosis: low wbc Interval history: 33 y/o male with no PMH; admitted on 09/11/2018 due to 4 days-AMS/behavioral ch anges, nausea, voimiting, diarrhea, weight loss and cough: Patient is seen today for: Severe sepsis (present on admission with fever, tachycardia, hypotension and elevated lactate); Acute hypoxemic Respiratory failure; Bilateral pneumonia; Acute encephalopathy (Toxic / Metabolic); Atrial Fibrillation with RVR; HIV-AIDS Seen and examined at bedside; 24hour events reviewed; nursing and respiratory care staff consulted; no adverse overnight events reported to me; resting peacefully in bed; generalized edema with ongoing diarrhea. No further fevers overnight, Oral secretions, awake and obeying one step commands Remains on MVS, PSV 10/6 during the day with tidal volumes of about 350ml, not in any distress. Full ventilatory support at night. On going diarrhea, improving No new events overnight s/p vascath placement and HD, tolerating it Objective Vital Signs - 12hr 10/18/18 10/18/18 10/18/18 21:00 21:47 22:00 Temperature Pulse Rate 89 85 90 Pulse Rate [ Bases] Pulse Rate [ From Monitor] Pulse Rate [ Left Dorsalis Pedis] Pulse Rate [ Throughout] Respiratory 18 17 Rate Respiratory Rate [Bases] Respiratory Rate [ Throughout] Blood Pressure 144/91 144/87 140/90 O2 Sat by Pulse 100 100 Oximetry 10/18/18 10/18/18 10/18/18 23:00 23:16 23:27 Temperature Pulse Rate 83 87 Pulse Rate [ Bases] Pulse Rate [ 82 From Monitor] Pulse Rate [ 82 Left Dorsalis Pedis] Pulse Rate [ Throughout] Respiratory 17 19 18 Rate Respiratory Rate [Bases] Respiratory Rate [ Throughout] Blood Pressure 129/73 O2 Sat by Pulse 100 100 100 Oximetry 10/18/18 10/19/18 10/19/18 23:37 00:00 01:00 Temperature 98.6 F Pulse Rate 84 84 91 H Pulse Rate [ Bases] Pulse Rate [ From Monitor] Pulse Rate [ Left Dorsalis Pedis] Pulse Rate [ Throughout] Respiratory 16 18 Rate Respiratory Rate [Bases] Respiratory Rate [ Throughout] Blood Pressure 129/74 129/70 135/83 O2 Sat by Pulse 100 98 100 Oximetry 10/19/18 10/19/18 10/19/18 01:57 02:00 02:10 Temperature Pulse Rate 93 H Pulse Rate [ 89 89 Bases] Pulse Rate [ From Monitor] Pulse Rate [ Left Dorsalis Pedis] Pulse Rate [ Throughout] Respiratory 15 Rate Respiratory 18 17 Rate [Bases] Respiratory Rate [ Throughout] Blood Pressure 135/88 O2 Sat by Pulse 100 Oximetry 10/19/18 10/19/18 10/19/18 03:00 03:25 03:42 Temperature Pulse Rate 92 H 22 L Pulse Rate [ Bases] Pulse Rate [ 68 From Monitor] Pulse Rate [ 68 Left Dorsalis Pedis] Pulse Rate [ Throughout] Respiratory 25 H 21 Rate Respiratory Rate [Bases] Respiratory Rate [ Throughout] Blood Pressure 133/91 133/91 O2 Sat by Pulse 100 100 Oximetry 10/19/18 10/19/18 10/19/18 04:00 05:00 06:00 Temperature 98.2 F Pulse Rate 90 92 H 92 H Pulse Rate [ Bases] Pulse Rate [ From Monitor] Pulse Rate [ Left Dorsalis Pedis] Pulse Rate [ Throughout] Respiratory 19 19 20 Rate Respiratory Rate [Bases] Respiratory Rate [ Throughout] Blood Pressure 129/78 141/90 131/84 O2 Sat by Pulse 100 100 94 Oximetry 10/19/18 10/19/18 10/19/18 07:00 07:57 08:00 Temperature Pulse Rate 97 H 95 H 94 H Pulse Rate [ Bases] Pulse Rate [ From Monitor] Pulse Rate [ Left Dorsalis Pedis] Pulse Rate [ Throughout] Respiratory 21 17 17 Rate Respiratory Rate [Bases] Respiratory Rate [ Throughout] Blood Pressure 126/87 117/79 117/79 O2 Sat by Pulse 96 100 95 Oximetry 10/19/18 10/19/18 08:02 08:24 Temperature Pulse Rate Pulse Rate [ 98 H Bases] Pulse Rate [ From Monitor] Pulse Rate [ Left Dorsalis Pedis] Pulse Rate [ 96 H Throughout] Respiratory Rate Respiratory 18 Rate [Bases] Respiratory 18 Rate [ Throughout] Blood Pressure O2 Sat by Pulse Oximetry Constitutional: no acute distress, alert, other (orally intubated ETT at 23cm) Eyes: non-icteric ENT: oropharynx moist Neck: supple, no lymphadenopathy, other (no thyromegaly) Effort: normal Ascultation: Bilateral: rales, rhonchi (scant) Percussion: Bilateral: not dull Cardiovascular: regular rate and rhythm, other (S1,S2, no murmurs, gallps or rubs) Gastrointestinal: normoactive bowel sounds, soft, non-tender, non-distended Integumentary: rash Extremities: no cyanosis, pulses normal, no ischemia or petechiae, edema Neurologic: pupils equal and round, other (inconsistently obesy one step commands) Psychiatric: other CBC and BMP: 10/19/18 04:00 10/19/18 06:15 ABG, PT/INR, D-dimer: ABG POC ABG pH 7.336 (7.35-7.45) L 10/12/18 13:30 POC ABG pCO2 31.5 (35-45) L 10/12/18 13:30 POC ABG pO2 122 (80-105) H 10/12/18 13:30 POC ABG HCO3 16.8 10/12/18 13:30 POC ABG Total CO2 18 10/12/18 13:30 POC ABG O2 Sat 99 10/12/18 13:30 PT/INR, D-dimer PT 16.0 Sec. (12.2-14.9) H 10/10/18 08:09 INR 1.20 (0.87-1.13) H 10/10/18 08:09 Abnormal lab findings: Abnormal Labs 09/11/18 09/11/18 09/11/18 18:00 18:00 18:00 WBC 1.9 L* RBC Hgb Hct RDW Plt Count 130 L Seg Neuts % (Manual) Lymphocytes % (Manual) Monocytes % (Manual) 16.0 H Eosinophils % (Manual) Basophils % (Manual) Nucleated RBC % Seg Neutrophils # Man 0.9 L Abs Lymphs (Manual) Lymphocytes # (Manual) 0.5 L Basophils # (Manual) PT INR APTT Heparin Anti-Xa Level POC ABG pH POC ABG pCO2 POC ABG pO2 Sodium 131 L Potassium Chloride Carbon Dioxide 17 L BUN 21 H Creatinine Glucose 126 H POC Glucose Lactic Acid 2.60 H* Calcium 8.1 L Phosphorus Magnesium Iron TIBC Ferritin AST 123 H ALT 115 H Total Creatine Kinase Total Protein Albumin 3.0 L Vitamin B12 Folate TSH Free T4 Urine WBC (Auto) Urine Creatinine Urine Chloride Urine Total Protein CSF VDRL Lymph Enumerat CD4/CD8 Absolute CD3 Count % CD4 Cells Absolute CD4 Count % CD8 Cells Absolute CD19 Count T.pallidum Ab (FTA-ABS) HIV-1 RNA PCR copies/ml HIV-1 RNA (PCR) log Miscellaneous Test 09/11/18 09/13/18 09/13/18 19:01 04:28 07:31 WBC 2.0 L RBC Hgb Hct RDW Plt Count 116 L Seg Neuts % (Manual) Lymphocytes % (Manual) Monocytes % (Manual) 8.0 H Eosinophils % (Manual) Basophils % (Manual) Nucleated RBC % Seg Neutrophils # Man 1.0 L Abs Lymphs (Manual) Lymphocytes # (Manual) 0.5 L Basophils # (Manual) PT INR APTT Heparin Anti-Xa Level POC ABG pH POC ABG pCO2 POC ABG pO2 Sodium Potassium Chloride 110.4 H Carbon Dioxide 19 L BUN Creatinine Glucose POC Glucose Lactic Acid 3.70 H* Calcium 7.9 L Phosphorus Magnesium Iron TIBC Ferritin AST ALT Total Creatine Kinase Total Protein Albumin Vitamin B12 Folate TSH Free T4 Urine WBC (Auto) Urine Creatinine Urine Chloride Urine Total Protein CSF VDRL Lymph Enumerat CD4/CD8 Absolute CD3 Count % CD4 Cells Absolute CD4 Count % CD8 Cells Absolute CD19 Count T.pallidum Ab (FTA-ABS) HIV-1 RNA PCR copies/ml HIV-1 RNA (PCR) log Miscellaneous Test 09/13/18 09/13/18 09/13/18 07:31 12:29 12:29 WBC RBC Hgb Hct RDW Plt Count Seg Neuts % (Manual) Lymphocytes % (Manual) Monocytes % (Manual) Eosinophils % (Manual) Basophils % (Manual) Nucleated RBC % Seg Neutrophils # Man Abs Lymphs (Manual) 309 L Lymphocytes # (Manual) Basophils # (Manual) PT INR APTT Heparin Anti-Xa Level POC ABG pH POC ABG pCO2 POC ABG pO2 Sodium Potassium Chloride Carbon Dioxide BUN Creatinine Glucose POC Glucose Lactic Acid Calcium Phosphorus Magnesium Iron TIBC Ferritin AST 70 H ALT 68 H Total Creatine Kinase Total Protein Albumin 2.5 L Vitamin B12 Folate TSH Free T4 Urine WBC (Auto) Urine Creatinine Urine Chloride Urine Total Protein CSF VDRL Lymph Enumerat CD4/CD8 0.01 L Absolute CD3 Count 220 L % CD4 Cells 1 L Absolute CD4 Count 4 L % CD8 Cells 70 H Absolute CD19 Count 54 L T.pallidum Ab (FTA-ABS) HIV-1 RNA PCR copies/ml 50321 H HIV-1 RNA (PCR) log 4.71 H Miscellaneous Test 09/13/18 09/14/18 09/14/18 12:29 07:17 16:34 WBC RBC Hgb Hct RDW Plt Count Seg Neuts % (Manual) Lymphocytes % (Manual) Monocytes % (Manual) Eosinophils % (Manual) Basophils % (Manual) Nucleated RBC % Seg Neutrophils # Man Abs Lymphs (Manual) Lymphocytes # (Manual) Basophils # (Manual) PT INR APTT Heparin Anti-Xa Level POC ABG pH POC ABG pCO2 POC ABG pO2 Sodium Potassium 3.4 L Chloride Carbon Dioxide 18 L BUN Creatinine Glucose 104 H POC Glucose Lactic Acid Calcium 7.6 L Phosphorus Magnesium Iron TIBC Ferritin AST 49 H ALT Total Creatine Kinase Total Protein Albumin 2.5 L Vitamin B12 Folate TSH Free T4 Urine WBC (Auto) Urine Creatinine Urine Chloride Urine Total Protein CSF VDRL Lymph Enumerat CD4/CD8 Absolute CD3 Count % CD4 Cells Absolute CD4 Count % CD8 Cells Absolute CD19 Count T.pallidum Ab (FTA-ABS) Reactive H HIV-1 RNA PCR copies/ml HIV-1 RNA (PCR) log Miscellaneous Test Flexitest 1 H 09/15/18 09/15/18 09/15/18 05:05 05:05 Unknown WBC 1.6 L* RBC Hgb 10.4 L Hct 31.1 L D RDW Plt Count 113 L Seg Neuts % (Manual) Lymphocytes % (Manual) Monocytes % (Manual) Eosinophils % (Manual) Basophils % (Manual) Nucleated RBC % Seg Neutrophils # Man Abs Lymphs (Manual) Lymphocytes # (Manual) Basophils # (Manual) PT INR APTT Heparin Anti-Xa Level POC ABG pH POC ABG pCO2 POC ABG pO2 Sodium Potassium Chloride 107.9 H Carbon Dioxide 18 L BUN 6 L Creatinine Glucose POC Glucose Lactic Acid Calcium 7.4 L Phosphorus Magnesium Iron TIBC Ferritin AST ALT Total Creatine Kinase Total Protein Albumin Vitamin B12 Folate TSH Free T4 Urine WBC (Auto) Urine Creatinine Urine Chloride Urine Total Protein CSF VDRL Reactive 1:8 H Lymph Enumerat CD4/CD8 Absolute CD3 Count % CD4 Cells Absolute CD4 Count % CD8 Cells Absolute CD19 Count T.pallidum Ab (FTA-ABS) HIV-1 RNA PCR copies/ml HIV-1 RNA (PCR) log Miscellaneous Test 09/16/18 09/16/18 09/16/18 06:55 11:41 11:41 WBC 2.8 L RBC Hgb 10.9 L Hct 33.5 L RDW Plt Count 135 L Seg Neuts % (Manual) Lymphocytes % (Manual) Monocytes % (Manual) Eosinophils % (Manual) Basophils % (Manual) Nucleated RBC % Seg Neutrophils # Man Abs Lymphs (Manual) Lymphocytes # (Manual) Basophils # (Manual) PT INR APTT Heparin Anti-Xa Level POC ABG pH POC ABG pCO2 POC ABG pO2 Sodium Potassium Chloride Carbon Dioxide BUN Creatinine Glucose POC Glucose Lactic Acid Calcium Phosphorus Magnesium Iron TIBC Ferritin AST ALT Total Creatine Kinase Total Protein Albumin Vitamin B12 Folate TSH 4.210 H Free T4 0.72 L Urine WBC (Auto) Urine Creatinine Urine Chloride Urine Total Protein CSF VDRL Lymph Enumerat CD4/CD8 Absolute CD3 Count % CD4 Cells Absolute CD4 Count % CD8 Cells Absolute CD19 Count T.pallidum Ab (FTA-ABS) HIV-1 RNA PCR copies/ml HIV-1 RNA (PCR) log Miscellaneous Test 09/16/18 09/16/18 09/17/18 11:41 15:43 05:13 WBC 2.0 L RBC Hgb 10.9 L Hct 32.7 L RDW Plt Count Seg Neuts % (Manual) Lymphocytes % (Manual) Monocytes % (Manual) Eosinophils % (Manual) Basophils % (Manual) Nucleated RBC % Seg Neutrophils # Man Abs Lymphs (Manual) Lymphocytes # (Manual) Basophils # (Manual) PT INR APTT Heparin Anti-Xa Level POC ABG pH POC ABG pCO2 29.3 L POC ABG pO2 70 L Sodium Potassium Chloride Carbon Dioxide BUN Creatinine Glucose POC Glucose Lactic Acid Calcium Phosphorus Magnesium Iron TIBC Ferritin AST ALT Total Creatine Kinase Total Protein Albumin Vitamin B12 934.5 H Folate TSH Free T4 Urine WBC (Auto) Urine Creatinine Urine Chloride Urine Total Protein CSF VDRL Lymph Enumerat CD4/CD8 Absolute CD3 Count % CD4 Cells Absolute CD4 Count % CD8 Cells Absolute CD19 Count T.pallidum Ab (FTA-ABS) HIV-1 RNA PCR copies/ml HIV-1 RNA (PCR) log Miscellaneous Test 09/17/18 09/17/18 09/18/18 05:13 21:57 12:46 WBC RBC Hgb Hct RDW Plt Count Seg Neuts % (Manual) Lymphocytes % (Manual) Monocytes % (Manual) Eosinophils % (Manual) Basophils % (Manual) Nucleated RBC % Seg Neutrophils # Man Abs Lymphs (Manual) Lymphocytes # (Manual) Basophils # (Manual) PT INR APTT Heparin Anti-Xa Level POC ABG pH POC ABG pCO2 POC ABG pO2 Sodium Potassium Chloride 107.2 H Carbon Dioxide 21 L BUN 3 L Creatinine 0.7 L Glucose POC Glucose 108 H Lactic Acid Calcium 7.9 L Phosphorus Magnesium Iron TIBC Ferritin AST ALT Total Creatine Kinase Total Protein 6.1 L Albumin 2.6 L Vitamin B12 Folate TSH Free T4 0.75 L Urine WBC (Auto) Urine Creatinine Urine Chloride Urine Total Protein CSF VDRL Lymph Enumerat CD4/CD8 Absolute CD3 Count % CD4 Cells Absolute CD4 Count % CD8 Cells Absolute CD19 Count T.pallidum Ab (FTA-ABS) HIV-1 RNA PCR copies/ml HIV-1 RNA (PCR) log Miscellaneous Test 09/18/18 09/19/18 09/19/18 12:46 04:57 04:57 WBC 2.1 L RBC Hgb 11.4 L Hct 34.2 L RDW Plt Count Seg Neuts % (Manual) Lymphocytes % (Manual) Monocytes % (Manual) Eosinophils % (Manual) Basophils % (Manual) Nucleated RBC % Seg Neutrophils # Man Abs Lymphs (Manual) Lymphocytes # (Manual) Basophils # (Manual) PT INR APTT Heparin Anti-Xa Level POC ABG pH POC ABG pCO2 POC ABG pO2 Sodium Potassium Chloride Carbon Dioxide 19 L BUN 6 L Creatinine Glucose POC Glucose Lactic Acid Calcium 7.9 L Phosphorus Magnesium Iron TIBC Ferritin AST ALT Total Creatine Kinase Total Protein Albumin Vitamin B12 Folate TSH 5.190 H Free T4 Urine WBC (Auto) Urine Creatinine Urine Chloride Urine Total Protein CSF VDRL Lymph Enumerat CD4/CD8 Absolute CD3 Count % CD4 Cells Absolute CD4 Count % CD8 Cells Absolute CD19 Count T.pallidum Ab (FTA-ABS) HIV-1 RNA PCR copies/ml HIV-1 RNA (PCR) log Miscellaneous Test 09/19/18 09/19/18 09/20/18 15:00 15:00 05:33 WBC RBC Hgb Hct RDW Plt Count Seg Neuts % (Manual) Lymphocytes % (Manual) Monocytes % (Manual) Eosinophils % (Manual) Basophils % (Manual) Nucleated RBC % Seg Neutrophils # Man Abs Lymphs (Manual) Lymphocytes # (Manual) Basophils # (Manual) PT INR APTT Heparin Anti-Xa Level POC ABG pH POC ABG pCO2 POC ABG pO2 Sodium 136 L Potassium Chloride Carbon Dioxide 19 L BUN 7 L Creatinine Glucose POC Glucose Lactic Acid Calcium Phosphorus Magnesium Iron TIBC Ferritin AST ALT Total Creatine Kinase Total Protein Albumin Vitamin B12 Folate TSH Free T4 Urine WBC (Auto) Urine Creatinine Urine Chloride Urine Total Protein CSF VDRL Reactive 1:4 H Lymph Enumerat CD4/CD8 Absolute CD3 Count % CD4 Cells Absolute CD4 Count % CD8 Cells Absolute CD19 Count T.pallidum Ab (FTA-ABS) HIV-1 RNA PCR copies/ml HIV-1 RNA (PCR) log Miscellaneous Test Flexitest 1 H 09/20/18 09/21/18 09/21/18 06:52 01:06 03:49 WBC 2.5 L RBC Hgb Hct RDW Plt Count Seg Neuts % (Manual) Lymphocytes % (Manual) Monocytes % (Manual) Eosinophils % (Manual) Basophils % (Manual) Nucleated RBC % Seg Neutrophils # Man Abs Lymphs (Manual) Lymphocytes # (Manual) Basophils # (Manual) PT INR APTT Heparin Anti-Xa Level POC ABG pH 7.159 L POC ABG pCO2 32.9 L 70.0 H POC ABG pO2 62 L 254 H Sodium Potassium Chloride Carbon Dioxide BUN Creatinine Glucose POC Glucose Lactic Acid Calcium Phosphorus Magnesium Iron TIBC Ferritin AST ALT Total Creatine Kinase Total Protein Albumin Vitamin B12 Folate TSH Free T4 Urine WBC (Auto) Urine Creatinine Urine Chloride Urine Total Protein CSF VDRL Lymph Enumerat CD4/CD8 Absolute CD3 Count % CD4 Cells Absolute CD4 Count % CD8 Cells Absolute CD19 Count T.pallidum Ab (FTA-ABS) HIV-1 RNA PCR copies/ml HIV-1 RNA (PCR) log Miscellaneous Test 09/21/18 09/21/18 09/21/18 04:15 04:15 04:25 WBC 3.1 L RBC Hgb 11.6 L Hct RDW Plt Count Seg Neuts % (Manual) Lymphocytes % (Manual) Monocytes % (Manual) 12.0 H Eosinophils % (Manual) Basophils % (Manual) Nucleated RBC % Seg Neutrophils # Man 1.6 L Abs Lymphs (Manual) Lymphocytes # (Manual) 0.5 L Basophils # (Manual) PT INR APTT Heparin Anti-Xa Level POC ABG pH POC ABG pCO2 POC ABG pO2 Sodium Potassium 6.1 H* D Chloride Carbon Dioxide 19 L BUN Creatinine Glucose 108 H POC Glucose Lactic Acid Calcium Phosphorus Magnesium Iron TIBC Ferritin AST ALT Total Creatine Kinase 685 H Total Protein Albumin Vitamin B12 Folate TSH Free T4 Urine WBC (Auto) Urine Creatinine Urine Chloride Urine Total Protein CSF VDRL Lymph Enumerat CD4/CD8 Absolute CD3 Count % CD4 Cells Absolute CD4 Count % CD8 Cells Absolute CD19 Count T.pallidum Ab (FTA-ABS) HIV-1 RNA PCR copies/ml HIV-1 RNA (PCR) log Miscellaneous Test 09/21/18 09/21/18 09/21/18 09:59 10:07 11:00 WBC RBC Hgb 11.7 L Hct RDW Plt Count Seg Neuts % (Manual) Lymphocytes % (Manual) Monocytes % (Manual) Eosinophils % (Manual) Basophils % (Manual) Nucleated RBC % Seg Neutrophils # Man Abs Lymphs (Manual) Lymphocytes # (Manual) Basophils # (Manual) PT INR APTT Heparin Anti-Xa Level POC ABG pH 7.301 L POC ABG pCO2 POC ABG pO2 109 H Sodium Potassium 6.5 H* Chloride Carbon Dioxide 18 L BUN Creatinine 2.1 H D Glucose POC Glucose Lactic Acid Calcium 8.1 L Phosphorus Magnesium Iron TIBC Ferritin AST 94 H ALT Total Creatine Kinase Total Protein Albumin 2.8 L Vitamin B12 Folate TSH Free T4 Urine WBC (Auto) Urine Creatinine Urine Chloride Urine Total Protein CSF VDRL Lymph Enumerat CD4/CD8 Absolute CD3 Count % CD4 Cells Absolute CD4 Count % CD8 Cells Absolute CD19 Count T.pallidum Ab (FTA-ABS) HIV-1 RNA PCR copies/ml HIV-1 RNA (PCR) log Miscellaneous Test 09/21/18 09/21/18 09/21/18 15:00 21:54 21:54 WBC RBC Hgb Hct RDW Plt Count Seg Neuts % (Manual) Lymphocytes % (Manual) Monocytes % (Manual) Eosinophils % (Manual) Basophils % (Manual) Nucleated RBC % Seg Neutrophils # Man Abs Lymphs (Manual) Lymphocytes # (Manual) Basophils # (Manual) PT 19.9 H INR 1.65 H APTT 40.9 H Heparin Anti-Xa Level 0.98 H POC ABG pH POC ABG pCO2 POC ABG pO2 Sodium Potassium 5.2 H Chloride Carbon Dioxide BUN Creatinine Glucose POC Glucose Lactic Acid Calcium Phosphorus Magnesium Iron TIBC Ferritin AST ALT Total Creatine Kinase Total Protein Albumin Vitamin B12 Folate TSH Free T4 Urine WBC (Auto) Urine Creatinine Urine Chloride Urine Total Protein CSF VDRL Lymph Enumerat CD4/CD8 Absolute CD3 Count % CD4 Cells Absolute CD4 Count % CD8 Cells Absolute CD19 Count T.pallidum Ab (FTA-ABS) HIV-1 RNA PCR copies/ml HIV-1 RNA (PCR) log Miscellaneous Test 09/21/18 09/22/18 09/22/18 22:57 03:01 05:27 WBC RBC Hgb Hct RDW Plt Count Seg Neuts % (Manual) Lymphocytes % (Manual) Monocytes % (Manual) Eosinophils % (Manual) Basophils % (Manual) Nucleated RBC % Seg Neutrophils # Man Abs Lymphs (Manual) Lymphocytes # (Manual) Basophils # (Manual) PT INR APTT Heparin Anti-Xa Level POC ABG pH POC ABG pCO2 32.7 L POC ABG pO2 Sodium Potassium Chloride Carbon Dioxide BUN Creatinine Glucose POC Glucose 124 H 128 H Lactic Acid Calcium Phosphorus Magnesium Iron TIBC Ferritin AST ALT Total Creatine Kinase Total Protein Albumin Vitamin B12 Folate TSH Free T4 Urine WBC (Auto) Urine Creatinine Urine Chloride Urine Total Protein CSF VDRL Lymph Enumerat CD4/CD8 Absolute CD3 Count % CD4 Cells Absolute CD4 Count % CD8 Cells Absolute CD19 Count T.pallidum Ab (FTA-ABS) HIV-1 RNA PCR copies/ml HIV-1 RNA (PCR) log Miscellaneous Test 09/22/18 09/22/18 09/22/18 07:00 07:00 11:32 WBC 1.8 L* RBC 3.59 L Hgb 10.1 L Hct 30.8 L RDW Plt Count 126 L Seg Neuts % (Manual) Lymphocytes % (Manual) Monocytes % (Manual) Eosinophils % (Manual) Basophils % (Manual) Nucleated RBC % Seg Neutrophils # Man Abs Lymphs (Manual) Lymphocytes # (Manual) Basophils # (Manual) PT INR APTT Heparin Anti-Xa Level POC ABG pH POC ABG pCO2 POC ABG pO2 Sodium Potassium Chloride Carbon Dioxide BUN 27 H Creatinine 2.0 H Glucose 128 H POC Glucose 123 H Lactic Acid Calcium 6.9 L Phosphorus Magnesium Iron TIBC Ferritin AST ALT Total Creatine Kinase Total Protein Albumin Vitamin B12 Folate TSH Free T4 Urine WBC (Auto) Urine Creatinine Urine Chloride Urine Total Protein CSF VDRL Lymph Enumerat CD4/CD8 Absolute CD3 Count % CD4 Cells Absolute CD4 Count % CD8 Cells Absolute CD19 Count T.pallidum Ab (FTA-ABS) HIV-1 RNA PCR copies/ml HIV-1 RNA (PCR) log Miscellaneous Test 09/22/18 09/22/18 09/22/18 15:52 18:18 23:52 WBC RBC Hgb Hct RDW Plt Count Seg Neuts % (Manual) Lymphocytes % (Manual) Monocytes % (Manual) Eosinophils % (Manual) Basophils % (Manual) Nucleated RBC % Seg Neutrophils # Man Abs Lymphs (Manual) Lymphocytes # (Manual) Basophils # (Manual) PT INR APTT Heparin Anti-Xa Level POC ABG pH POC ABG pCO2 48.7 H POC ABG pO2 Sodium Potassium Chloride Carbon Dioxide BUN Creatinine Glucose POC Glucose 110 H 124 H Lactic Acid Calcium Phosphorus Magnesium Iron TIBC Ferritin AST ALT Total Creatine Kinase Total Protein Albumin Vitamin B12 Folate TSH Free T4 Urine WBC (Auto) Urine Creatinine Urine Chloride Urine Total Protein CSF VDRL Lymph Enumerat CD4/CD8 Absolute CD3 Count % CD4 Cells Absolute CD4 Count % CD8 Cells Absolute CD19 Count T.pallidum Ab (FTA-ABS) HIV-1 RNA PCR copies/ml HIV-1 RNA (PCR) log Miscellaneous Test 09/23/18 09/23/18 09/23/18 04:10 05:55 05:55 WBC RBC Hgb 10.0 L Hct 30.3 L RDW Plt Count 117 L Seg Neuts % (Manual) Lymphocytes % (Manual) Monocytes % (Manual) Eosinophils % (Manual) Basophils % (Manual) Nucleated RBC % Seg Neutrophils # Man Abs Lymphs (Manual) Lymphocytes # (Manual) Basophils # (Manual) PT INR APTT Heparin Anti-Xa Level 0.26 L POC ABG pH POC ABG pCO2 POC ABG pO2 144 H Sodium Potassium Chloride Carbon Dioxide BUN Creatinine Glucose POC Glucose Lactic Acid Calcium Phosphorus Magnesium Iron TIBC Ferritin AST ALT Total Creatine Kinase Total Protein Albumin Vitamin B12 Folate TSH Free T4 Urine WBC (Auto) Urine Creatinine Urine Chloride Urine Total Protein CSF VDRL Lymph Enumerat CD4/CD8 Absolute CD3 Count % CD4 Cells Absolute CD4 Count % CD8 Cells Absolute CD19 Count T.pallidum Ab (FTA-ABS) HIV-1 RNA PCR copies/ml HIV-1 RNA (PCR) log Miscellaneous Test 09/23/18 09/23/18 09/23/18 08:10 08:10 23:57 WBC 1.3 L* RBC 3.53 L Hgb 9.9 L Hct 30.0 L RDW Plt Count 119 L Seg Neuts % (Manual) Lymphocytes % (Manual) Monocytes % (Manual) Eosinophils % (Manual) Basophils % (Manual) Nucleated RBC % Seg Neutrophils # Man Abs Lymphs (Manual) Lymphocytes # (Manual) Basophils # (Manual) PT INR APTT Heparin Anti-Xa Level POC ABG pH POC ABG pCO2 POC ABG pO2 Sodium Potassium Chloride Carbon Dioxide BUN Creatinine Glucose 122 H POC Glucose 115 H Lactic Acid Calcium 6.9 L Phosphorus Magnesium Iron TIBC Ferritin AST ALT Total Creatine Kinase Total Protein Albumin Vitamin B12 Folate TSH Free T4 Urine WBC (Auto) Urine Creatinine Urine Chloride Urine Total Protein CSF VDRL Lymph Enumerat CD4/CD8 Absolute CD3 Count % CD4 Cells Absolute CD4 Count % CD8 Cells Absolute CD19 Count T.pallidum Ab (FTA-ABS) HIV-1 RNA PCR copies/ml HIV-1 RNA (PCR) log Miscellaneous Test 09/24/18 09/24/18 09/24/18 12:04 14:42 18:10 WBC RBC Hgb Hct RDW Plt Count Seg Neuts % (Manual) Lymphocytes % (Manual) Monocytes % (Manual) Eosinophils % (Manual) Basophils % (Manual) Nucleated RBC % Seg Neutrophils # Man Abs Lymphs (Manual) Lymphocytes # (Manual) Basophils # (Manual) PT INR APTT Heparin Anti-Xa Level 0.76 H POC ABG pH POC ABG pCO2 POC ABG pO2 Sodium Potassium Chloride Carbon Dioxide BUN Creatinine Glucose POC Glucose 111 H 138 H Lactic Acid Calcium Phosphorus Magnesium Iron TIBC Ferritin AST ALT Total Creatine Kinase Total Protein Albumin Vitamin B12 Folate TSH Free T4 Urine WBC (Auto) Urine Creatinine Urine Chloride Urine Total Protein CSF VDRL Lymph Enumerat CD4/CD8 Absolute CD3 Count % CD4 Cells Absolute CD4 Count % CD8 Cells Absolute CD19 Count T.pallidum Ab (FTA-ABS) HIV-1 RNA PCR copies/ml HIV-1 RNA (PCR) log Miscellaneous Test 09/25/18 09/25/18 09/25/18 03:45 04:24 14:20 WBC RBC Hgb 9.7 L Hct 29.4 L RDW Plt Count 104 L Seg Neuts % (Manual) Lymphocytes % (Manual) Monocytes % (Manual) Eosinophils % (Manual) Basophils % (Manual) Nucleated RBC % Seg Neutrophils # Man Abs Lymphs (Manual) Lymphocytes # (Manual) Basophils # (Manual) PT INR APTT Heparin Anti-Xa Level POC ABG pH 7.460 H POC ABG pCO2 32.9 L POC ABG pO2 Sodium Potassium 3.5 L Chloride 110.3 H Carbon Dioxide BUN Creatinine Glucose 105 H POC Glucose Lactic Acid Calcium 6.7 L Phosphorus Magnesium Iron TIBC Ferritin AST 633 H ALT 481 H Total Creatine Kinase Total Protein 4.8 L D Albumin 1.9 L Vitamin B12 Folate TSH Free T4 Urine WBC (Auto) Urine Creatinine Urine Chloride Urine Total Protein CSF VDRL Lymph Enumerat CD4/CD8 Absolute CD3 Count % CD4 Cells Absolute CD4 Count % CD8 Cells Absolute CD19 Count T.pallidum Ab (FTA-ABS) HIV-1 RNA PCR copies/ml HIV-1 RNA (PCR) log Miscellaneous Test 09/26/18 09/26/18 09/26/18 06:15 06:15 10:43 WBC 1.2 L* RBC 3.32 L Hgb 9.2 L Hct 28.6 L RDW Plt Count 97 L Seg Neuts % (Manual) 24.0 L Lymphocytes % (Manual) 43.0 H Monocytes % (Manual) 19.0 H Eosinophils % (Manual) 8.0 H Basophils % (Manual) 2.0 H Nucleated RBC % 3.0 H Seg Neutrophils # Man 0.0 L Abs Lymphs (Manual) Lymphocytes # (Manual) 0.0 L Basophils # (Manual) PT INR APTT Heparin Anti-Xa Level POC ABG pH 7.459 H POC ABG pCO2 POC ABG pO2 141 H Sodium Potassium Chloride 112.8 H Carbon Dioxide BUN Creatinine Glucose 110 H POC Glucose Lactic Acid Calcium 7.0 L Phosphorus 0.90 L* Magnesium Iron TIBC Ferritin AST 362 H ALT 360 H Total Creatine Kinase Total Protein 4.9 L Albumin 1.5 L Vitamin B12 Folate TSH Free T4 Urine WBC (Auto) Urine Creatinine Urine Chloride Urine Total Protein CSF VDRL Lymph Enumerat CD4/CD8 Absolute CD3 Count % CD4 Cells Absolute CD4 Count % CD8 Cells Absolute CD19 Count T.pallidum Ab (FTA-ABS) HIV-1 RNA PCR copies/ml HIV-1 RNA (PCR) log Miscellaneous Test 09/26/18 09/27/18 09/28/18 13:56 04:11 07:49 WBC RBC Hgb 9.1 L Hct 29.1 L RDW Plt Count 96 L Seg Neuts % (Manual) Lymphocytes % (Manual) Monocytes % (Manual) Eosinophils % (Manual) Basophils % (Manual) Nucleated RBC % Seg Neutrophils # Man Abs Lymphs (Manual) Lymphocytes # (Manual) Basophils # (Manual) PT INR APTT Heparin Anti-Xa Level POC ABG pH POC ABG pCO2 POC ABG pO2 Sodium 146 H Potassium Chloride 111.6 H Carbon Dioxide BUN Creatinine Glucose POC Glucose 135 H Lactic Acid Calcium 7.4 L Phosphorus Magnesium Iron TIBC Ferritin AST ALT Total Creatine Kinase Total Protein Albumin Vitamin B12 Folate TSH Free T4 Urine WBC (Auto) Urine Creatinine Urine Chloride Urine Total Protein CSF VDRL Lymph Enumerat CD4/CD8 Absolute CD3 Count % CD4 Cells Absolute CD4 Count % CD8 Cells Absolute CD19 Count T.pallidum Ab (FTA-ABS) HIV-1 RNA PCR copies/ml HIV-1 RNA (PCR) log Miscellaneous Test 09/28/18 09/29/18 09/29/18 10:43 05:00 05:00 WBC 1.2 L* RBC 3.13 L Hgb 8.6 L Hct 27.3 L RDW Plt Count 137 L Seg Neuts % (Manual) Lymphocytes % (Manual) Monocytes % (Manual) 16.0 H Eosinophils % (Manual) Basophils % (Manual) Nucleated RBC % 4.0 H Seg Neutrophils # Man 0.5 L Abs Lymphs (Manual) Lymphocytes # (Manual) 0.3 L Basophils # (Manual) PT INR APTT Heparin Anti-Xa Level POC ABG pH 7.300 L POC ABG pCO2 53.9 H POC ABG pO2 Sodium 147 H Potassium 3.4 L Chloride 114.5 H Carbon Dioxide BUN Creatinine Glucose POC Glucose Lactic Acid Calcium 7.7 L Phosphorus Magnesium Iron TIBC Ferritin AST 69 H ALT 110 H Total Creatine Kinase Total Protein 5.2 L Albumin 1.9 L Vitamin B12 Folate TSH Free T4 Urine WBC (Auto) Urine Creatinine Urine Chloride Urine Total Protein CSF VDRL Lymph Enumerat CD4/CD8 Absolute CD3 Count % CD4 Cells Absolute CD4 Count % CD8 Cells Absolute CD19 Count T.pallidum Ab (FTA-ABS) HIV-1 RNA PCR copies/ml HIV-1 RNA (PCR) log Miscellaneous Test 09/29/18 09/29/18 09/30/18 06:07 13:22 05:19 WBC 0.9 L* RBC 3.03 L Hgb 8.6 L Hct 25.9 L RDW Plt Count Seg Neuts % (Manual) Lymphocytes % (Manual) Monocytes % (Manual) Eosinophils % (Manual) Basophils % (Manual) Nucleated RBC % Seg Neutrophils # Man Abs Lymphs (Manual) Lymphocytes # (Manual) Basophils # (Manual) PT INR APTT Heparin Anti-Xa Level POC ABG pH POC ABG pCO2 46.9 H POC ABG pO2 Sodium Potassium Chloride Carbon Dioxide BUN Creatinine Glucose POC Glucose 109 H Lactic Acid Calcium Phosphorus Magnesium Iron TIBC Ferritin AST ALT Total Creatine Kinase Total Protein Albumin Vitamin B12 Folate TSH Free T4 Urine WBC (Auto) Urine Creatinine Urine Chloride Urine Total Protein CSF VDRL Lymph Enumerat CD4/CD8 Absolute CD3 Count % CD4 Cells Absolute CD4 Count % CD8 Cells Absolute CD19 Count T.pallidum Ab (FTA-ABS) HIV-1 RNA PCR copies/ml HIV-1 RNA (PCR) log Miscellaneous Test 09/30/18 09/30/18 09/30/18 05:19 11:14 23:28 WBC RBC Hgb Hct RDW Plt Count Seg Neuts % (Manual) Lymphocytes % (Manual) Monocytes % (Manual) Eosinophils % (Manual) Basophils % (Manual) Nucleated RBC % Seg Neutrophils # Man Abs Lymphs (Manual) Lymphocytes # (Manual) Basophils # (Manual) PT INR APTT Heparin Anti-Xa Level 0.72 H POC ABG pH POC ABG pCO2 46.6 H POC ABG pO2 Sodium 150 H Potassium Chloride 115.2 H Carbon Dioxide BUN Creatinine Glucose POC Glucose Lactic Acid Calcium 7.9 L Phosphorus Magnesium Iron TIBC Ferritin AST ALT Total Creatine Kinase Total Protein Albumin Vitamin B12 Folate TSH Free T4 Urine WBC (Auto) Urine Creatinine Urine Chloride Urine Total Protein CSF VDRL Lymph Enumerat CD4/CD8 Absolute CD3 Count % CD4 Cells Absolute CD4 Count % CD8 Cells Absolute CD19 Count T.pallidum Ab (FTA-ABS) HIV-1 RNA PCR copies/ml HIV-1 RNA (PCR) log Miscellaneous Test 10/01/18 10/01/18 10/02/18 04:55 04:55 07:15 WBC 0.9 L* 0.7 L* RBC 3.01 L 2.92 L Hgb 8.4 L 8.4 L Hct 26.0 L 24.9 L RDW Plt Count Seg Neuts % (Manual) Lymphocytes % (Manual) Monocytes % (Manual) Eosinophils % (Manual) Basophils % (Manual) Nucleated RBC % Seg Neutrophils # Man Abs Lymphs (Manual) Lymphocytes # (Manual) Basophils # (Manual) PT INR APTT Heparin Anti-Xa Level POC ABG pH POC ABG pCO2 POC ABG pO2 Sodium 147 H Potassium 3.4 L Chloride 113.1 H Carbon Dioxide BUN 22 H Creatinine Glucose POC Glucose Lactic Acid Calcium 7.3 L Phosphorus Magnesium Iron TIBC Ferritin AST ALT Total Creatine Kinase Total Protein Albumin Vitamin B12 Folate TSH Free T4 Urine WBC (Auto) Urine Creatinine Urine Chloride Urine Total Protein CSF VDRL Lymph Enumerat CD4/CD8 Absolute CD3 Count % CD4 Cells Absolute CD4 Count % CD8 Cells Absolute CD19 Count T.pallidum Ab (FTA-ABS) HIV-1 RNA PCR copies/ml HIV-1 RNA (PCR) log Miscellaneous Test 10/02/18 10/03/18 10/03/18 07:15 06:12 06:12 WBC 0.8 L* RBC 2.96 L Hgb 8.5 L Hct 25.9 L RDW 15.4 H Plt Count Seg Neuts % (Manual) Lymphocytes % (Manual) Monocytes % (Manual) Eosinophils % (Manual) Basophils % (Manual) Nucleated RBC % Seg Neutrophils # Man Abs Lymphs (Manual) Lymphocytes # (Manual) Basophils # (Manual) PT INR APTT Heparin Anti-Xa Level POC ABG pH POC ABG pCO2 POC ABG pO2 Sodium Potassium 3.4 L 3.4 L Chloride 108.3 H Carbon Dioxide BUN Creatinine Glucose POC Glucose Lactic Acid Calcium 7.6 L 7.4 L Phosphorus Magnesium Iron TIBC Ferritin AST ALT Total Creatine Kinase Total Protein Albumin Vitamin B12 Folate TSH Free T4 Urine WBC (Auto) Urine Creatinine Urine Chloride Urine Total Protein CSF VDRL Lymph Enumerat CD4/CD8 Absolute CD3 Count % CD4 Cells Absolute CD4 Count % CD8 Cells Absolute CD19 Count T.pallidum Ab (FTA-ABS) HIV-1 RNA PCR copies/ml HIV-1 RNA (PCR) log Miscellaneous Test 10/03/18 10/03/18 10/04/18 11:45 13:23 01:40 WBC RBC Hgb Hct RDW Plt Count Seg Neuts % (Manual) Lymphocytes % (Manual) Monocytes % (Manual) Eosinophils % (Manual) Basophils % (Manual) Nucleated RBC % Seg Neutrophils # Man Abs Lymphs (Manual) Lymphocytes # (Manual) Basophils # (Manual) PT INR APTT Heparin Anti-Xa Level 1.34 H 0.26 L POC ABG pH POC ABG pCO2 POC ABG pO2 Sodium Potassium Chloride Carbon Dioxide BUN Creatinine Glucose POC Glucose Lactic Acid Calcium Phosphorus Magnesium 1.40 L Iron TIBC Ferritin AST ALT Total Creatine Kinase Total Protein Albumin Vitamin B12 Folate TSH Free T4 Urine WBC (Auto) Urine Creatinine Urine Chloride Urine Total Protein CSF VDRL Lymph Enumerat CD4/CD8 Absolute CD3 Count % CD4 Cells Absolute CD4 Count % CD8 Cells Absolute CD19 Count T.pallidum Ab (FTA-ABS) HIV-1 RNA PCR copies/ml HIV-1 RNA (PCR) log Miscellaneous Test 10/04/18 10/04/18 10/06/18 04:45 04:45 09:40 WBC 0.8 L* RBC 3.11 L Hgb 9.0 L Hct 27.4 L RDW 15.4 H Plt Count Seg Neuts % (Manual) Lymphocytes % (Manual) Monocytes % (Manual) Eosinophils % (Manual) Basophils % (Manual) Nucleated RBC % Seg Neutrophils # Man Abs Lymphs (Manual) Lymphocytes # (Manual) Basophils # (Manual) PT INR APTT Heparin Anti-Xa Level POC ABG pH POC ABG pCO2 POC ABG pO2 Sodium Potassium Chloride Carbon Dioxide BUN Creatinine 0.7 L Glucose POC Glucose Lactic Acid Calcium 7.5 L Phosphorus Magnesium Iron 35 L TIBC 157 L Ferritin AST ALT Total Creatine Kinase Total Protein Albumin Vitamin B12 Folate TSH Free T4 Urine WBC (Auto) Urine Creatinine Urine Chloride Urine Total Protein CSF VDRL Lymph Enumerat CD4/CD8 Absolute CD3 Count % CD4 Cells Absolute CD4 Count % CD8 Cells Absolute CD19 Count T.pallidum Ab (FTA-ABS) HIV-1 RNA PCR copies/ml HIV-1 RNA (PCR) log Miscellaneous Test 10/06/18 10/06/18 10/07/18 09:40 09:40 04:20 WBC 1.1 L* RBC 3.07 L Hgb 9.1 L Hct 27.3 L RDW 20.3 H Plt Count Seg Neuts % (Manual) Lymphocytes % (Manual) Monocytes % (Manual) Eosinophils % (Manual) Basophils % (Manual) Nucleated RBC % Seg Neutrophils # Man 0.7 L Abs Lymphs (Manual) Lymphocytes # (Manual) 0.3 L Basophils # (Manual) PT INR APTT Heparin Anti-Xa Level POC ABG pH POC ABG pCO2 POC ABG pO2 Sodium Potassium Chloride Carbon Dioxide BUN Creatinine Glucose POC Glucose Lactic Acid Calcium Phosphorus Magnesium Iron TIBC Ferritin 1126.0 H AST ALT Total Creatine Kinase Total Protein Albumin Vitamin B12 Folate 6.71 L TSH Free T4 Urine WBC (Auto) Urine Creatinine Urine Chloride Urine Total Protein CSF VDRL Lymph Enumerat CD4/CD8 Absolute CD3 Count % CD4 Cells Absolute CD4 Count % CD8 Cells Absolute CD19 Count T.pallidum Ab (FTA-ABS) HIV-1 RNA PCR copies/ml HIV-1 RNA (PCR) log Miscellaneous Test 10/07/18 10/07/18 10/09/18 04:20 15:38 04:20 WBC 1.1 L* RBC 3.35 L Hgb 9.9 L Hct 30.1 L RDW 21.4 H Plt Count Seg Neuts % (Manual) 19.0 L Lymphocytes % (Manual) 42.0 H Monocytes % (Manual) 18.0 H Eosinophils % (Manual) 15.0 H Basophils % (Manual) 2.0 H Nucleated RBC % Seg Neutrophils # Man 0.2 L Abs Lymphs (Manual) Lymphocytes # (Manual) 0.5 L Basophils # (Manual) PT INR APTT Heparin Anti-Xa Level POC ABG pH 7.516 H POC ABG pCO2 32.1 L POC ABG pO2 Sodium Potassium Chloride Carbon Dioxide BUN Creatinine 0.7 L Glucose POC Glucose Lactic Acid Calcium 7.9 L Phosphorus Magnesium Iron TIBC Ferritin AST ALT Total Creatine Kinase Total Protein 5.5 L Albumin 2.2 L Vitamin B12 Folate TSH Free T4 Urine WBC (Auto) Urine Creatinine Urine Chloride Urine Total Protein CSF VDRL Lymph Enumerat CD4/CD8 Absolute CD3 Count % CD4 Cells Absolute CD4 Count % CD8 Cells Absolute CD19 Count T.pallidum Ab (FTA-ABS) HIV-1 RNA PCR copies/ml HIV-1 RNA (PCR) log Miscellaneous Test 10/09/18 10/09/18 10/09/18 04:20 11:48 17:31 WBC RBC Hgb Hct RDW Plt Count Seg Neuts % (Manual) Lymphocytes % (Manual) Monocytes % (Manual) Eosinophils % (Manual) Basophils % (Manual) Nucleated RBC % Seg Neutrophils # Man Abs Lymphs (Manual) Lymphocytes # (Manual) Basophils # (Manual) PT INR APTT Heparin Anti-Xa Level POC ABG pH POC ABG pCO2 POC ABG pO2 Sodium Potassium 5.4 H Chloride Carbon Dioxide 21 L BUN 55 H 72 H Creatinine 3.8 H D 4.5 H Glucose 118 H POC Glucose 124 H Lactic Acid Calcium 8.3 L 8.2 L Phosphorus Magnesium Iron TIBC Ferritin AST ALT Total Creatine Kinase Total Protein Albumin Vitamin B12 Folate TSH Free T4 Urine WBC (Auto) Urine Creatinine Urine Chloride Urine Total Protein CSF VDRL Lymph Enumerat CD4/CD8 Absolute CD3 Count % CD4 Cells Absolute CD4 Count % CD8 Cells Absolute CD19 Count T.pallidum Ab (FTA-ABS) HIV-1 RNA PCR copies/ml HIV-1 RNA (PCR) log Miscellaneous Test 10/10/18 10/10/18 10/10/18 08:09 08:35 10:54 WBC 1.1 L* RBC 3.16 L Hgb 9.6 L Hct 28.8 L RDW 21.2 H Plt Count Seg Neuts % (Manual) 27.0 L Lymphocytes % (Manual) Monocytes % (Manual) 9.0 H Eosinophils % (Manual) 18.0 H Basophils % (Manual) 12.0 H Nucleated RBC % Seg Neutrophils # Man 0.3 L Abs Lymphs (Manual) Lymphocytes # (Manual) 0.3 L Basophils # (Manual) PT 16.0 H INR 1.20 H APTT Heparin Anti-Xa Level POC ABG pH POC ABG pCO2 POC ABG pO2 Sodium Potassium 5.5 H Chloride Carbon Dioxide 20 L BUN 83 H Creatinine 5.5 H Glucose 119 H POC Glucose Lactic Acid Calcium Phosphorus Magnesium Iron TIBC Ferritin AST ALT Total Creatine Kinase Total Protein Albumin Vitamin B12 Folate TSH Free T4 Urine WBC (Auto) Urine Creatinine Urine Chloride Urine Total Protein CSF VDRL Lymph Enumerat CD4/CD8 Absolute CD3 Count % CD4 Cells Absolute CD4 Count % CD8 Cells Absolute CD19 Count T.pallidum Ab (FTA-ABS) HIV-1 RNA PCR copies/ml HIV-1 RNA (PCR) log Miscellaneous Test 10/10/18 10/10/18 10/11/18 Unknown Unknown 05:20 WBC 1.2 L* RBC 2.89 L Hgb 8.7 L Hct 26.0 L RDW 20.1 H Plt Count Seg Neuts % (Manual) Lymphocytes % (Manual) 8.0 L Monocytes % (Manual) 12.0 H Eosinophils % (Manual) 24.0 H Basophils % (Manual) 4.0 H Nucleated RBC % Seg Neutrophils # Man 0.6 L Abs Lymphs (Manual) Lymphocytes # (Manual) 0.1 L Basophils # (Manual) PT INR APTT Heparin Anti-Xa Level POC ABG pH POC ABG pCO2 POC ABG pO2 Sodium Potassium Chloride Carbon Dioxide BUN Creatinine Glucose POC Glucose Lactic Acid Calcium Phosphorus Magnesium Iron TIBC Ferritin AST ALT Total Creatine Kinase Total Protein Albumin Vitamin B12 Folate TSH Free T4 Urine WBC (Auto) Urine Creatinine Urine Chloride Urine Total Protein CSF VDRL Reactive 1:2 H Lymph Enumerat CD4/CD8 Absolute CD3 Count % CD4 Cells Absolute CD4 Count % CD8 Cells Absolute CD19 Count T.pallidum Ab (FTA-ABS) HIV-1 RNA PCR copies/ml HIV-1 RNA (PCR) log Miscellaneous Test Flexitest 1 H 10/11/18 10/11/18 10/11/18 05:20 05:40 05:40 WBC RBC Hgb Hct RDW Plt Count Seg Neuts % (Manual) Lymphocytes % (Manual) Monocytes % (Manual) Eosinophils % (Manual) Basophils % (Manual) Nucleated RBC % Seg Neutrophils # Man Abs Lymphs (Manual) Lymphocytes # (Manual) Basophils # (Manual) PT INR APTT Heparin Anti-Xa Level POC ABG pH POC ABG pCO2 POC ABG pO2 Sodium Potassium Chloride Carbon Dioxide 20 L BUN 102 H Creatinine 6.7 H Glucose POC Glucose Lactic Acid Calcium 8.3 L Phosphorus Magnesium Iron TIBC Ferritin AST ALT Total Creatine Kinase Total Protein Albumin Vitamin B12 Folate TSH Free T4 Urine WBC (Auto) 8.0 H Urine Creatinine 57.5 H Urine Chloride 35.1 L Urine Total Protein 44 H CSF VDRL Lymph Enumerat CD4/CD8 Absolute CD3 Count % CD4 Cells Absolute CD4 Count % CD8 Cells Absolute CD19 Count T.pallidum Ab (FTA-ABS) HIV-1 RNA PCR copies/ml HIV-1 RNA (PCR) log Miscellaneous Test 10/11/18 10/12/18 10/12/18 16:41 03:30 03:30 WBC 0.9 L* RBC 2.78 L Hgb 8.3 L Hct 25.1 L RDW 19.9 H Plt Count Seg Neuts % (Manual) Lymphocytes % (Manual) Monocytes % (Manual) Eosinophils % (Manual) 20.0 H Basophils % (Manual) Nucleated RBC % Seg Neutrophils # Man 0.5 L Abs Lymphs (Manual) Lymphocytes # (Manual) 0.3 L Basophils # (Manual) PT INR APTT Heparin Anti-Xa Level POC ABG pH 7.318 L POC ABG pCO2 POC ABG pO2 Sodium Potassium Chloride Carbon Dioxide 18 L BUN 111 H Creatinine 7.3 H Glucose POC Glucose Lactic Acid Calcium 7.9 L Phosphorus Magnesium Iron TIBC Ferritin AST ALT Total Creatine Kinase Total Protein Albumin Vitamin B12 Folate TSH Free T4 Urine WBC (Auto) Urine Creatinine Urine Chloride Urine Total Protein CSF VDRL Lymph Enumerat CD4/CD8 Absolute CD3 Count % CD4 Cells Absolute CD4 Count % CD8 Cells Absolute CD19 Count T.pallidum Ab (FTA-ABS) HIV-1 RNA PCR copies/ml HIV-1 RNA (PCR) log Miscellaneous Test 10/12/18 10/13/18 10/13/18 13:30 04:00 04:05 WBC 1.0 L* RBC 2.68 L Hgb 8.1 L Hct 24.3 L RDW 19.7 H Plt Count Seg Neuts % (Manual) 36.7 L Lymphocytes % (Manual) Monocytes % (Manual) Eosinophils % (Manual) 16.7 H Basophils % (Manual) 16.7 H Nucleated RBC % Seg Neutrophils # Man 0.4 L Abs Lymphs (Manual) Lymphocytes # (Manual) 0.2 L Basophils # (Manual) 0.2 H PT INR APTT Heparin Anti-Xa Level POC ABG pH 7.336 L POC ABG pCO2 31.5 L POC ABG pO2 122 H Sodium Potassium Chloride Carbon Dioxide 17 L BUN 118 H Creatinine 7.8 H Glucose 102 H POC Glucose Lactic Acid Calcium 7.8 L Phosphorus Magnesium Iron TIBC Ferritin AST ALT Total Creatine Kinase Total Protein Albumin Vitamin B12 Folate TSH Free T4 Urine WBC (Auto) Urine Creatinine Urine Chloride Urine Total Protein CSF VDRL Lymph Enumerat CD4/CD8 Absolute CD3 Count % CD4 Cells Absolute CD4 Count % CD8 Cells Absolute CD19 Count T.pallidum Ab (FTA-ABS) HIV-1 RNA PCR copies/ml HIV-1 RNA (PCR) log Miscellaneous Test 10/13/18 10/14/18 10/14/18 18:44 00:01 05:20 WBC RBC Hgb Hct RDW Plt Count Seg Neuts % (Manual) Lymphocytes % (Manual) Monocytes % (Manual) Eosinophils % (Manual) Basophils % (Manual) Nucleated RBC % Seg Neutrophils # Man Abs Lymphs (Manual) Lymphocytes # (Manual) Basophils # (Manual) PT INR APTT Heparin Anti-Xa Level POC ABG pH POC ABG pCO2 POC ABG pO2 Sodium Potassium Chloride Carbon Dioxide BUN Creatinine Glucose POC Glucose 141 H 134 H 171 H Lactic Acid Calcium Phosphorus Magnesium Iron TIBC Ferritin AST ALT Total Creatine Kinase Total Protein Albumin Vitamin B12 Folate TSH Free T4 Urine WBC (Auto) Urine Creatinine Urine Chloride Urine Total Protein CSF VDRL Lymph Enumerat CD4/CD8 Absolute CD3 Count % CD4 Cells Absolute CD4 Count % CD8 Cells Absolute CD19 Count T.pallidum Ab (FTA-ABS) HIV-1 RNA PCR copies/ml HIV-1 RNA (PCR) log Miscellaneous Test 10/14/18 10/14/18 10/14/18 09:39 09:40 11:37 WBC RBC Hgb Hct RDW Plt Count Seg Neuts % (Manual) Lymphocytes % (Manual) Monocytes % (Manual) Eosinophils % (Manual) Basophils % (Manual) Nucleated RBC % Seg Neutrophils # Man Abs Lymphs (Manual) Lymphocytes # (Manual) Basophils # (Manual) PT INR APTT Heparin Anti-Xa Level POC ABG pH POC ABG pCO2 POC ABG pO2 Sodium 147 H Potassium 3.4 L Chloride 108.1 H Carbon Dioxide 16 L BUN 124 H Creatinine 6.7 H Glucose 144 H POC Glucose 164 H Lactic Acid Calcium 7.8 L Phosphorus 8.50 H Magnesium Iron TIBC Ferritin AST ALT Total Creatine Kinase Total Protein Albumin Vitamin B12 Folate TSH Free T4 Urine WBC (Auto) Urine Creatinine Urine Chloride Urine Total Protein CSF VDRL Lymph Enumerat CD4/CD8 Absolute CD3 Count % CD4 Cells Absolute CD4 Count % CD8 Cells Absolute CD19 Count T.pallidum Ab (FTA-ABS) HIV-1 RNA PCR copies/ml HIV-1 RNA (PCR) log Miscellaneous Test 10/14/18 10/14/18 10/15/18 Unknown Unknown 00:05 WBC 0.5 L* RBC 2.80 L Hgb 8.2 L Hct 25.2 L RDW 19.7 H Plt Count Seg Neuts % (Manual) Lymphocytes % (Manual) 10.0 L Monocytes % (Manual) Eosinophils % (Manual) 10.0 H Basophils % (Manual) Nucleated RBC % Seg Neutrophils # Man 0.4 L Abs Lymphs (Manual) Lymphocytes # (Manual) 0.1 L Basophils # (Manual) PT INR APTT Heparin Anti-Xa Level POC ABG pH POC ABG pCO2 POC ABG pO2 Sodium Potassium Chloride Carbon Dioxide 13 L BUN 126 H Creatinine 7.7 H Glucose 153 H POC Glucose 190 H Lactic Acid Calcium 7.8 L Phosphorus Magnesium Iron TIBC Ferritin AST ALT Total Creatine Kinase Total Protein Albumin Vitamin B12 Folate TSH Free T4 Urine WBC (Auto) Urine Creatinine Urine Chloride Urine Total Protein CSF VDRL Lymph Enumerat CD4/CD8 Absolute CD3 Count % CD4 Cells Absolute CD4 Count % CD8 Cells Absolute CD19 Count T.pallidum Ab (FTA-ABS) HIV-1 RNA PCR copies/ml HIV-1 RNA (PCR) log Miscellaneous Test 10/15/18 10/15/18 10/15/18 04:15 04:15 05:03 WBC 0.8 L* RBC 2.73 L Hgb 8.2 L Hct 24.4 L RDW 18.8 H Plt Count Seg Neuts % (Manual) Lymphocytes % (Manual) Monocytes % (Manual) Eosinophils % (Manual) Basophils % (Manual) Nucleated RBC % Seg Neutrophils # Man Abs Lymphs (Manual) Lymphocytes # (Manual) Basophils # (Manual) PT INR APTT Heparin Anti-Xa Level POC ABG pH POC ABG pCO2 POC ABG pO2 Sodium 148 H Potassium 2.9 L* Chloride 108.5 H Carbon Dioxide 17 L BUN 127 H Creatinine 6.1 H Glucose 154 H POC Glucose 170 H Lactic Acid Calcium 7.7 L Phosphorus Magnesium Iron TIBC Ferritin AST ALT Total Creatine Kinase Total Protein 6.0 L Albumin 2.3 L Vitamin B12 Folate TSH Free T4 Urine WBC (Auto) Urine Creatinine Urine Chloride Urine Total Protein CSF VDRL Lymph Enumerat CD4/CD8 Absolute CD3 Count % CD4 Cells Absolute CD4 Count % CD8 Cells Absolute CD19 Count T.pallidum Ab (FTA-ABS) HIV-1 RNA PCR copies/ml HIV-1 RNA (PCR) log Miscellaneous Test 10/15/18 10/15/18 10/15/18 12:23 17:42 17:49 WBC RBC Hgb Hct RDW Plt Count Seg Neuts % (Manual) Lymphocytes % (Manual) Monocytes % (Manual) Eosinophils % (Manual) Basophils % (Manual) Nucleated RBC % Seg Neutrophils # Man Abs Lymphs (Manual) Lymphocytes # (Manual) Basophils # (Manual) PT INR APTT Heparin Anti-Xa Level POC ABG pH POC ABG pCO2 POC ABG pO2 Sodium 146 H Potassium 3.0 L Chloride 109.4 H Carbon Dioxide 16 L BUN 124 H Creatinine 5.6 H Glucose 162 H POC Glucose 180 H 173 H Lactic Acid Calcium 7.5 L Phosphorus Magnesium Iron TIBC Ferritin AST ALT Total Creatine Kinase Total Protein Albumin Vitamin B12 Folate TSH Free T4 Urine WBC (Auto) Urine Creatinine Urine Chloride Urine Total Protein CSF VDRL Lymph Enumerat CD4/CD8 Absolute CD3 Count % CD4 Cells Absolute CD4 Count % CD8 Cells Absolute CD19 Count T.pallidum Ab (FTA-ABS) HIV-1 RNA PCR copies/ml HIV-1 RNA (PCR) log Miscellaneous Test 10/15/18 10/16/18 10/16/18 23:56 05:37 07:50 WBC 1.1 L* RBC 2.70 L Hgb 8.0 L Hct 24.4 L RDW 18.9 H Plt Count Seg Neuts % (Manual) Lymphocytes % (Manual) Monocytes % (Manual) 8.0 H Eosinophils % (Manual) Basophils % (Manual) Nucleated RBC % Seg Neutrophils # Man 0.7 L Abs Lymphs (Manual) Lymphocytes # (Manual) 0.2 L Basophils # (Manual) PT INR APTT Heparin Anti-Xa Level POC ABG pH POC ABG pCO2 POC ABG pO2 Sodium Potassium Chloride Carbon Dioxide BUN Creatinine Glucose POC Glucose 164 H 152 H Lactic Acid Calcium Phosphorus Magnesium Iron TIBC Ferritin AST ALT Total Creatine Kinase Total Protein Albumin Vitamin B12 Folate TSH Free T4 Urine WBC (Auto) Urine Creatinine Urine Chloride Urine Total Protein CSF VDRL Lymph Enumerat CD4/CD8 Absolute CD3 Count % CD4 Cells Absolute CD4 Count % CD8 Cells Absolute CD19 Count T.pallidum Ab (FTA-ABS) HIV-1 RNA PCR copies/ml HIV-1 RNA (PCR) log Miscellaneous Test 10/16/18 10/16/18 10/16/18 07:50 12:35 18:00 WBC RBC Hgb Hct RDW Plt Count Seg Neuts % (Manual) Lymphocytes % (Manual) Monocytes % (Manual) Eosinophils % (Manual) Basophils % (Manual) Nucleated RBC % Seg Neutrophils # Man Abs Lymphs (Manual) Lymphocytes # (Manual) Basophils # (Manual) PT INR APTT Heparin Anti-Xa Level POC ABG pH POC ABG pCO2 POC ABG pO2 Sodium 147 H Potassium 3.0 L Chloride Carbon Dioxide 15 L BUN 143 H Creatinine 6.2 H Glucose 182 H POC Glucose 122 H 160 H Lactic Acid Calcium 8.1 L Phosphorus Magnesium Iron TIBC Ferritin AST ALT Total Creatine Kinase Total Protein Albumin Vitamin B12 Folate TSH Free T4 Urine WBC (Auto) Urine Creatinine Urine Chloride Urine Total Protein CSF VDRL Lymph Enumerat CD4/CD8 Absolute CD3 Count % CD4 Cells Absolute CD4 Count % CD8 Cells Absolute CD19 Count T.pallidum Ab (FTA-ABS) HIV-1 RNA PCR copies/ml HIV-1 RNA (PCR) log Miscellaneous Test 10/16/18 10/17/18 10/17/18 23:32 05:03 11:32 WBC RBC Hgb Hct RDW Plt Count Seg Neuts % (Manual) Lymphocytes % (Manual) Monocytes % (Manual) Eosinophils % (Manual) Basophils % (Manual) Nucleated RBC % Seg Neutrophils # Man Abs Lymphs (Manual) Lymphocytes # (Manual) Basophils # (Manual) PT INR APTT Heparin Anti-Xa Level POC ABG pH POC ABG pCO2 POC ABG pO2 Sodium Potassium Chloride Carbon Dioxide BUN Creatinine Glucose POC Glucose 131 H 112 H 149 H Lactic Acid Calcium Phosphorus Magnesium Iron TIBC Ferritin AST ALT Total Creatine Kinase Total Protein Albumin Vitamin B12 Folate TSH Free T4 Urine WBC (Auto) Urine Creatinine Urine Chloride Urine Total Protein CSF VDRL Lymph Enumerat CD4/CD8 Absolute CD3 Count % CD4 Cells Absolute CD4 Count % CD8 Cells Absolute CD19 Count T.pallidum Ab (FTA-ABS) HIV-1 RNA PCR copies/ml HIV-1 RNA (PCR) log Miscellaneous Test 10/19/18 10/19/18 04:00 06:15 WBC 0.7 L* RBC 2.77 L Hgb 7.9 L Hct 24.7 L RDW 19.4 H Plt Count 112 L Seg Neuts % (Manual) Lymphocytes % (Manual) Monocytes % (Manual) Eosinophils % (Manual) Basophils % (Manual) Nucleated RBC % Seg Neutrophils # Man Abs Lymphs (Manual) Lymphocytes # (Manual) Basophils # (Manual) PT INR APTT Heparin Anti-Xa Level POC ABG pH POC ABG pCO2 POC ABG pO2 Sodium Potassium 2.9 L* Chloride Carbon Dioxide 19 L BUN 107 H Creatinine 5.9 H Glucose POC Glucose Lactic Acid Calcium 7.9 L Phosphorus Magnesium Iron TIBC Ferritin AST 54 H ALT Total Creatine Kinase Total Protein 5.7 L Albumin 2.5 L Vitamin B12 Folate TSH Free T4 Urine WBC (Auto) Urine Creatinine Urine Chloride Urine Total Protein CSF VDRL Lymph Enumerat CD4/CD8 Absolute CD3 Count % CD4 Cells Absolute CD4 Count % CD8 Cells Absolute CD19 Count T.pallidum Ab (FTA-ABS) HIV-1 RNA PCR copies/ml HIV-1 RNA (PCR) log Miscellaneous Test Allied health notes reviewed: nursing
--- NOTE | 2018-10-19 08:54 | Hem/Onc Progress Note ---
Assessment and Plan 1. Leukopenia. ANC is 0.5. Neutropenic precaution is practical. 2. Anemia. We will investigate. 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 HAART has been started. At this time, there is no fever. 3. Human immunodeficiency virus, on HAART. 4. 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 5. Intubated. 6. On antibiotics for pneumonia. 7. History of ____ that is improved. 8. Looks at you, but does not communicate. 9. History of oral candidiasis. 10. Mention of giardiasis. 11. Encephalopathy. 12. RVR with atrial fibrillation. I will follow the patient during inpatient stay. At this time, his cytopenia is likely secondary to the HIV or the CMV. I will discuss with ID team to see if G-CSF support is an option. 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 - nephrology 10/12 - trach - peg not done - as family deciding the GCSF - did not change the WBC 10/13 - wbc 1 - opens eye - non communicative 10/14 - pt moves rt arm - eyes open still on vent - as per info - family is thinking about PEG - trach - they have not consented granix trial for low wbc 10/15 - gcsf trial - poor prognosis due to performance status 10/16 - dialysis cath wbc low - gCSF 10/17 - wbc still low - poor prognosis - ct folic acid for anemia 10/18 - not much improvement - last cbc on 10/16 10/19 - wbc low - moving left toes - Patient Problems (1) Neutropenia Current Visit: Yes Status: Acute Subjective Date of service: 10/19/18 Principal diagnosis: low wbc - hiv Interval history: non communicative Objective - Constitutional Vitals: Last Vital Signs Temp 98.2 F 10/19/18 04:00 Pulse 98 H 10/19/18 08:24 Resp 18 10/19/18 08:24 BP 117/79 10/19/18 08:00 Pulse Ox 95 10/19/18 08:00 General appearance: no acute distress Performance status: 4-completely disabled - EENT ENT: other (intubated) Lymph node exam: negative cervical - Respiratory Respiratory effort: Positive: normal, other (vent) Respiratory: bilateral: diminished (anteriorly) - Cardiovascular Heart Sounds: Present: S1 & S2 Extremity abnormal: edema - Gastrointestinal General gastrointestinal: Present: soft, non-tender Rectal Exam: deferred - Genitourinary Male genitourinary: Present: deferred - Integumentary Integumentary: warm - Neurologic Neurologic: other (moves left toes) - Labs Lab Results: Laboratory Results - last 24 hr 10/12/18 10/18/18 10/18/18 09:46 11:18 17:56 WBC RBC Hgb Hct MCV MCH MCHC RDW Plt Count Sodium Potassium Chloride Carbon Dioxide Anion Gap BUN Creatinine Estimated GFR BUN/Creatinine Ratio Glucose POC Glucose 93 97 Calcium Total Bilirubin AST ALT Alkaline Phosphatase Total Protein Albumin Albumin/Globulin Ratio Proteinase 3 (PR3) Ab <1.0 Myeloperoxidase Ab <1.0 10/18/18 10/19/18 10/19/18 23:31 04:00 05:52 WBC 0.7 L* RBC 2.77 L Hgb 7.9 L Hct 24.7 L MCV 89 MCH 29 MCHC 32 RDW 19.4 H Plt Count 112 L Sodium Potassium Chloride Carbon Dioxide Anion Gap BUN Creatinine Estimated GFR BUN/Creatinine Ratio Glucose POC Glucose 87 83 Calcium Total Bilirubin AST ALT Alkaline Phosphatase Total Protein Albumin Albumin/Globulin Ratio Proteinase 3 (PR3) Ab Myeloperoxidase Ab 10/19/18 06:15 WBC RBC Hgb Hct MCV MCH MCHC RDW Plt Count Sodium 142 Potassium 2.9 L* Chloride 100.6 Carbon Dioxide 19 L Anion Gap 25 BUN 107 H Creatinine 5.9 H Estimated GFR 13 BUN/Creatinine Ratio 18 Glucose 96 POC Glucose Calcium 7.9 L Total Bilirubin 0.30 AST 54 H ALT 36 Alkaline Phosphatase 57 Total Protein 5.7 L Albumin 2.5 L Albumin/Globulin Ratio 0.8 Proteinase 3 (PR3) Ab Myeloperoxidase Ab Medications & Allergies - Medications Allergies/Adverse Reactions: Allergies No Known Allergies Allergy (Unverified 09/11/18 17:50) Home Medications: Home Medications Medication Instructions Recorded Confirmed Last Taken Type No Known Home Medications [No 10/02/18 10/02/18 Unknown History Reported Home Medications] Active Medications: Generic Name Dose Route Start Last Admin Trade Name Freq PRN Reason Stop Dose Admin Acetaminophen 650 mg 09/11/18 19:30 10/09/18 16:32 Tylenol PO 650 mg Q4H PRN Administration Pain MILD(1-3)/Fever >100.5/RIVERA Acetaminophen 650 mg 09/21/18 07:39 10/07/18 21:15 Tylenol [place] 650 mg Q4H PRN Administration Fever >101 Albuterol 2.5 mg 09/11/18 19:30 09/16/18 06:09 Proventil IH 2.5 mg Q4HRT PRN Administration Shortness Of Breath Albuterol 2.5 mg 09/20/18 20:00 10/19/18 08:02 Proventil IH 2.5 mg Q6HRT GIA Administration Amiodarone HCl 200 mg 09/27/18 15:00 10/18/18 21:52 Cordarone PO 200 mg BID GIA Administration Lipase/Protease/Amylase 1 each 09/30/18 12:[address] 10,500 Unit FEEDTUBE PRN PRN For Clogged Feeding Tube Atovaquone 750 mg 09/21/18 10:00 10/18/18 21:51 Mepron PO 750 mg BID GIA Administration Azithromycin 1,200 mg 10/18/18 10:00 10/18/18 10:35 Zithromax PO 1,200 mg Tu GIA Administration Emtricitabine 200 mg 10/13/18 10:00 10/17/18 09:47 Emtriva PO 200 mg Q96H GIA Administration Famotidine 20 mg 10/10/18 10:00 10/18/18 10:34 Pepcid PO 20 mg DAILY GIA Administration Fluconazole 200 mg 10/05/18 12:00 10/18/18 10:33 Diflucan PO 200 mg QDAY GIA Administration Folic Acid 1 mg 10/07/18 10:00 10/18/18 10:34 Folvite PO 1 mg QDAY GIA Administration Glycopyrrolate 2 mg 10/07/18 18:00 10/19/18 05:50 Robinul PO 2 mg Q6HR GIA Administration Heparin Sodium (Porcine) 5,000 unit 10/05/18 14:00 10/19/18 05:50 Heparin SUB-Q 5,000 unit Q8HR GIA Administration Hydrophilic Ointment 1 applic 09/21/18 01:46 09/22/18 03:46 Vaseline Lip Therapy TP 1 applic Q2HR PRN Administration Dry Lips Ganciclovir Sodium 150 mg/ 250 mls @ 100 mls/hr 10/12/18 10:00 10/17/18 09:47 Sodium Chloride IV 100 mls/hr MoWeFr GIA Administration Sodium Chloride 100 mls @ 999 mls/hr 10/15/18 12:33 Nacl 0.9% IV CHERYL PRN Hypotension Sodium Chloride 100 mls @ 999 mls/hr 10/17/18 10:39 Nacl 0.9% IV CHERYL PRN Hypotension Levetiracetam 750 mg 10/12/18 22:00 10/18/18 21:50 Keppra PO 750 mg BID GIA Administration Levothyroxine Sodium 25 mcg 09/19/18 06:00 10/19/18 06:00 Synthroid PO 25 mcg DAILY@0600 GIA Administration Metoprolol Tartrate 12.5 mg 10/10/18 13:00 10/18/18 21:47 Lopressor PO 12.5 mg BID GIA Administration Multi-Ingred Cream/Lotion/Oil/Oint 1 applic 09/21/18 01:46 Artificial Tears Ophth Oint OU Q4HR PRN Dry Eye(s) Ondansetron HCl 4 mg 09/11/18 19:30 Zofran IV Q8H PRN Nausea And Vomiting Scopolamine 1 each 09/18/18 18:00 10/18/18 17:18 Transderm-Scop TD 1 each Q3D GIA Administration Simple Syrup 15 ml 09/30/18 12:01 10/07/18 06:18 Simple Syrup FEEDTUBE 15 ml PRN PRN Administration Hypoglycemia Simple Syrup 15 ml 10/15/18 10:45 Simple Syrup FEEDTUBE PRN PRN Hypoglycemia Simple Syrup 30 ml 10/15/18 10:45 Simple Syrup FEEDTUBE PRN PRN Hypoglycemia Sodium Bicarbonate 325 mg 10/15/18 10:45 Sodium Bicarbonate FEEDTUBE PRN PRN For Clogged Feeding Tube Sodium Chloride 10 ml 09/11/18 22:00 10/18/18 21:50 Sodium Chloride Flush Syringe 10 Ml IV 10 ml BID GIA Administration Sodium Chloride 10 ml 09/11/18 19:30 Sodium Chloride Flush Syringe 10 Ml IV PRN PRN LINE FLUSH Tenofovir Disoproxil Fumarate 300 mg 10/13/18 10:00 10/17/18 09:46 Viread PO 300 mg Q96H GIA Administration
[2018-10-19] MEDS ORDERED: KCL 20MEQ/100ML 20 MEQ/100 ML BAG IV ONE (09:30)
--- NOTE | 2018-10-19 11:43 | Progress Note ---
Assessment and Plan Assessment and plan: ARF - Patient's creatinine level is trending up - nephrology is following and he started on hemodialysis 10/16/18. Acute hypoxemic respiratory failure - Patient has pneumonia and altered mental status - Patient is intubated and on mechanical ventilation - Trach and PEG per surgery. Disseminated CMV viremia: -Treated with IV ganciclovir and currently he is on prophylaxis Toxic metabolic encephalopathy. 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 Of note, MRI did not show ventriculitis. A. fib with RVR. Converted to NSR. cont Amiodarone and metoprolol. Rate controlled Neurosyphilis: CSF VDRL positive, patient finished a course of IV penicillin 21 days Diarrhea. Resolved, etiology likely secondary to Giardia. Giardia antigen positive in stool. Completed a course of Flagyl. Oral candidiasis. Fluconazole HIV/AIDS. New Diagnosis. Started on HAART on 09/30, Tenofovir, Emtricitabine + Dolutegravir watch closely for IRIS continue atovaquone and azithromycin prophylaxis Neutropenia. 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 Also probably worse from ganciclovir. r/o disseminated MAC, thus far cultures negative. WBC count this morning was 0.5, progressively declining. Hematology saw him and continue granix. Prognosis poor. The high probability of a clinically significant, sudden or life threatening deterioration of the [neurological, respiratory and cardiac] system(s) required my full and direct attention, intervention and personal management. The aggregat e critical care time was [33] minutes. This time is in addition to time spent performing reported procedures but includes the following: [x] Data Review and interpretation [x] Patient assessment and monitoring of vital signs [x] Documentation [x] Medication orders and management History Interval history: Patient is 33 yo initially presented with diarrhea, found to have pneumonia, sepsis, HIV/AIDS(new diagnosis) with CD4 count of 4. He was started on abx for PJP. His mental status has worsened with confusion, lethargy. LP done . He was diagnosed with neurosyphilis. Started on Penicillin. Closest family is sister in [place], and dr. Baltazar spoke to her several times about diagnosis but did not tell her about HIV/AIDS because of patient confidentiality. The patient decompensated on 09/20/18 with acute hypoxemic respiratory failure and worsening toxic metabolic encephalopathy requiring transfer to ICU and intubation. He now remains on mechanical ventilation. The patient was also noted to develop SVT requiring amiodarone drip as well as heparin drip. Severe Sepsis. Etiology secondary to bacterial pneumonia +/- gastroenteritis with newly diagnosed with HIV. Fevers have re-emerged. Repeat blood cx per ID. the patient was initiated on hemodialysis 10/16/18 for renal failure secondary to ATN from severe sepsis. Hospitalist Physical - Constitutional Vitals: Temp Pulse Resp BP Pulse Ox 97.8 F 110 H 24 127/94 100 10/19/18 08:45 10/19/18 11:25 10/19/18 11:25 10/19/18 11:25 10/19/18 11:25 General appearance: Present: mild distress, other (orally intubated, minimal response--right side spontaneous movement) - EENT Eyes: Present: PERRL, EOM intact ENT: hearing intact, clear oral mucosa, dentition normal - Neck Neck: Present: supple, normal ROM - Respiratory Respiratory effort: normal Respiratory: bilateral: CTA - Cardiovascular Rhythm: regular Heart Sounds: Present: S1 & S2. Absent: gallop, rub - Extremities Extremities: no ischemia, No edema, Full ROM - Abdominal General gastrointestinal: soft, non-tender, non-distended, normal bowel sounds - Integumentary Integumentary: Present: clear, warm, dry - Neurologic Neurologic: CNII-XII intact, moves all extremities Results - Labs CBC & Chem 7: 10/19/18 04:00 10/19/18 06:15 Labs: Laboratory Last Values WBC 0.7 K/mm3 (4.5-11.0) L* 10/19/18 04:00 RBC 2.77 M/mm3 (3.65-5.03) L 10/19/18 04:00 Hgb 7.9 gm/dl (11.8-15.2) L 10/19/18 04:00 Hct 24.7 % (35.5-45.6) L 10/19/18 04:00 MCV 89 fl (84-94) 10/19/18 04:00 MCH 29 pg (28-32) 10/19/18 04:00 MCHC 32 % (32-34) 10/19/18 04:00 RDW 19.4 % (13.2-15.2) H 10/19/18 04:00 Plt Count 112 K/mm3 (140-440) L 10/19/18 04:00 [place] % (Auto) Alarm Service Technician 09/29/18 05:00 Eos % (Auto) Alarm Service Technician 10/13/18 04:05 Baso % (Auto) Alarm Service Technician 10/13/18 04:05 Add Manual Diff Complete 10/16/18 07:50 Total Counted 50 10/16/18 07:50 Seg Neutrophils % Alarm Service Technician 10/16/18 07:50 Seg Neuts % (Manual) 60.0 % (40.0-70.0) 10/16/18 07:50 Band Neutrophils % 18.0 % 10/16/18 07:50 Lymphocytes % (Manual) 14.0 % (13.4-35.0) 10/16/18 07:50 Reactive Lymphs % (Man) 0 % 10/16/18 07:50 Monocytes % (Manual) 8.0 % (0.0-7.3) H 10/16/18 07:50 Eosinophils % (Manual) 0 % (0.0-4.3) 10/16/18 07:50 Basophils % (Manual) 0 % (0.0-1.8) 10/16/18 07:50 Metamyelocytes % 0 % 10/16/18 07:50 Myelocytes % 0 % 10/16/18 07:50 Promyelocytes % 0 % 10/16/18 07:50 Blast Cells % 0 % 10/16/18 07:50 Nucleated RBC % Not Reportable 10/16/18 07:50 Seg Neutrophils # Man 0.7 K/mm3 (1.8-7.7) L 10/16/18 07:50 Band Neutrophils # 0.2 K/mm3 10/16/18 07:50 Abs Lymphs (Manual) 309 cells/uL (850-3900) L 09/13/18 12:29 Lymphocytes # (Manual) 0.2 K/mm3 (1.2-5.4) L 10/16/18 07:50 Abs React Lymphs (Man) 0.0 K/mm3 10/16/18 07:50 Monocytes # (Manual) 0.1 K/mm3 (0.0-0.8) 10/16/18 07:50 Eosinophils # (Manual) 0.0 K/mm3 (0.0-0.4) 10/16/18 07:50 Basophils # (Manual) 0.0 K/mm3 (0.0-0.1) 10/16/18 07:50 Metamyelocytes # 0.0 K/mm3 10/16/18 07:50 Myelocytes # 0.0 K/mm3 10/16/18 07:50 Promyelocytes # 0.0 K/mm3 10/16/18 07:50 Blast Cells # 0.0 K/mm3 10/16/18 07:50 WBC Morphology Not Reportable 10/16/18 07:50 Hypersegmented Neuts Not Reportable 10/16/18 07:50 Hyposegmented Neuts Not Reportable 10/16/18 07:50 Hypogranular Neuts Not Reportable 10/16/18 07:50 Smudge Cells Not Reportable 10/16/18 07:50 Toxic Granulation Not Reportable 10/16/18 07:50 Toxic Vacuolation Not Reportable 10/16/18 07:50 Dohle Bodies Not Reportable 10/16/18 07:50 Pelger-Huet Anomaly Not Reportable 10/16/18 07:50 Giovanna Rods Not Reportable 10/16/18 07:50 Platelet Estimate Not Reportable 10/16/18 07:50 Clumped Platelets Not Reportable 10/16/18 07:50 Plt Clumps, EDTA Not Reportable 10/16/18 07:50 Large Platelets Not Reportable 10/16/18 07:50 Giant Platelets Not Reportable 10/16/18 07:50 Platelet Satelliting Not Reportable 10/16/18 07:50 Plt Morphology Comment Not Reportable 10/16/18 07:50 RBC Morphology Not Reportable 10/16/18 07:50 Dimorphic RBCs Not Reportable 10/16/18 07:50 Polychromasia Not Reportable 10/16/18 07:50 Hypochromasia Not Reportable 10/16/18 07:50 Poikilocytosis 1+ 10/16/18 07:50 Anisocytosis 1+ 10/16/18 07:50 Microcytosis Not Reportable 10/16/18 07:50 Macrocytosis Not Reportable 10/16/18 07:50 Spherocytes Not Reportable 10/16/18 07:50 Pappenheimer Bodies Not Reportable 10/16/18 07:50 Sickle Cells Not Reportable 10/16/18 07:50 Target Cells Not Reportable 10/16/18 07:50 Tear Drop Cells Not Reportable 10/16/18 07:50 Ovalocytes Not Reportable 10/16/18 07:50 Stomatocytes 1+ 09/29/18 05:00 Helmet Cells Not Reportable 10/16/18 07:50 Ponce-Pearson Bodies Not Reportable 10/16/18 07:50 Edison Rings Not Reportable 10/16/18 07:50 Gould Cells Not Reportable 10/16/18 07:50 Bite Cells Not Reportable 10/16/18 07:50 Crenated Cell Not Reportable 10/16/18 07:50 Elliptocytes Not Reportable 10/16/18 07:50 Acanthocytes (Spur) Not Reportable 10/16/18 07:50 Rouleaux Not Reportable 10/16/18 07:50 Hemoglobin C Crystals Not Reportable 10/16/18 07:50 Schistocytes Not Reportable 10/16/18 07:50 Malaria parasites Not Reportable 10/16/18 07:50 Kieran Bodies Not Reportable 10/16/18 07:50 Hem Pathologist Commnt No 10/16/18 07:50 PT 16.0 Sec. (12.2-14.9) H 10/10/18 08:09 INR 1.20 (0.87-1.13) H 10/10/18 08:09 APTT 40.9 Sec. (24.2-36.6) H 09/21/18 15:00 Heparin Anti-Xa Level 0.35 U.I./ml (0.3-0.7) 10/05/18 10:19 POC ABG pH 7.336 (7.35-7.45) L 10/12/18 13:30 POC ABG pCO2 31.5 (35-45) L 10/12/18 13:30 POC ABG pO2 122 (80-105) H 10/12/18 13:30 POC ABG HCO3 16.8 10/12/18 13:30 POC ABG Total CO2 18 10/12/18 13:30 POC ABG O2 Sat 99 10/12/18 13:30 POC ABG Base Excess -9 10/12/18 13:30 FiO2 25 % 10/12/18 13:30 Sodium 142 mmol/L (137-145) 10/19/18 06:15 Potassium 2.9 mmol/L (3.6-5.0) L* 10/19/18 06:15 Chloride 100.6 mmol/L (98-107) 10/19/18 06:15 Carbon Dioxide 19 mmol/L (22-30) L 10/19/18 06:15 Anion Gap 25 mmol/L 10/19/18 06:15 BUN 107 mg/dL (9-20) H 10/19/18 06:15 Creatinine 5.9 mg/dL (0.8-1.5) H 10/19/18 06:15 Estimated GFR 13 ml/min 10/19/18 06:15 BUN/Creatinine Ratio 18 % 10/19/18 06:15 Glucose 96 mg/dL (75-100) 10/19/18 06:15 POC Glucose 83 (70-105) 10/19/18 05:52 Lactic Acid 0.90 mmol/L (0.7-2.0) 09/11/18 20:17 Calcium 7.9 mg/dL (8.4-10.2) L 10/19/18 06:15 Phosphorus 8.50 mg/dL (2.5-4.5) H 10/14/18 09:40 Magnesium 2.10 mg/dL (1.7-2.3) 10/14/18 09:40 Iron 35 ug/dL (49-181) L 10/06/18 09:40 TIBC 157 mcg/dL (250-450) L 10/06/18 09:40 Ferritin 1126.0 ng/mL (13.0-400.0) H 10/06/18 09:40 Total Bilirubin 0.30 mg/dL (0.1-1.2) 10/19/18 06:15 Direct Bilirubin < 0.2 mg/dL (0-0.2) 09/13/18 07:31 AST 54 units/L (5-40) H 10/19/18 06:15 ALT 36 units/L (7-56) 10/19/18 06:15 Alkaline Phosphatase 57 units/L (35-129) 10/19/18 06:15 Ammonia 27.0 umol/L (25-60) 10/03/18 13:23 Total Creatine Kinase 113 units/L (55-170) 10/11/18 05:20 CK-MB (CK-2) 2.6 ng/mL (0.0-4.0) 10/11/18 05:20 CK-MB (CK-2) Rel Index 0.5 (0-4) 09/21/18 04:25 NT-Pro-B Natriuret Pep 145.9 pg/mL (0-450) 09/18/18 16:07 Total Protein 5.7 g/dL (6.3-8.2) L 10/19/18 06:15 Albumin 2.5 g/dL (3.9-5) L 10/19/18 06:15 Albumin/Globulin Ratio 0.8 % 10/19/18 06:15 Vitamin B12 934.5 pg/mL (211-911) H 09/16/18 11:41 Folate 6.71 ng/mL (7.3-26.0) L 10/06/18 09:40 TSH 5.190 mlU/mL (0.270-4.200) H 09/18/18 12:46 Free T4 0.75 ng/dL (0.76-1.46) L 09/18/18 12:46 Urine Color Yellow (Yellow) 10/11/18 05:40 Urine Turbidity Slightly-cloudy (Clear) 10/11/18 05:40 Urine pH 5.0 (5.0-7.0) 10/11/18 05:40 Ur Specific [place] 1.012 (1.003-1.030) 10/11/18 05:40 Urine Protein 30 mg/dl mg/dL (Negative) 10/11/18 05:40 Urine Glucose (UA) Neg mg/dL (Negative) 10/11/18 05:40 Urine Ketones Neg mg/dL (Negative) 10/11/18 05:40 Urine Blood Mod (Negative) 10/11/18 05:40 Urine Nitrite Neg (Negative) 10/11/18 05:40 Urine Bilirubin Neg (Negative) 10/11/18 05:40 Urine Urobilinogen < 2.0 mg/dL (<2.0) 10/11/18 05:40 Ur Leukocyte Esterase Neg (Negative) 10/11/18 05:40 Urine WBC (Auto) 8.0 /HPF (0.0-6.0) H 10/11/18 05:40 Urine RBC (Auto) 45.0 /HPF (0.0-6.0) 10/11/18 05:40 U Epithel Cells (Auto) 2.0 /HPF (0-13.0) 10/11/18 05:40 Urine Bacteria (Auto) 1+ /HPF (Negative) 10/11/18 05:40 Urine Mucus Few /HPF 10/11/18 05:40 Urine Creatinine 57.5 mg/dL (0.1-20.0) H 10/11/18 05:40 Protein/Creatinin Ratio 0.77 10/11/18 05:40 Urine Sodium 70 mmol/L 10/11/18 05:40 Urine Chloride 35.1 mmolL (110-250) L 10/11/18 05:40 Urine Total Protein 44 mg/dL (5-11.8) H 10/11/18 05:40 CSF Appearance Bloody 10/10/18 Unknown CSF Color Red 10/10/18 Unknown CSF WBC 10 /mm3 (1-10) 10/10/18 Unknown CSF RBC 39895 /mm3 (0-0) 10/10/18 Unknown CSF Seg Neutrophils 14.0 % (0-6) 10/10/18 Unknown CSF Lymphocytes % 44.0 % (40-80) 10/10/18 Unknown CSF Reactive Lymphs 0 % 10/10/18 Unknown CSF Monocytes % 38.0 % (15-45) 10/10/18 Unknown CSF Eosinophils % 4.0 % 10/10/18 Unknown CSF Basophils 0 % 10/10/18 Unknown CSF Pathologist Review C 10/10/18 Unknown CSF Glucose 47 mg/dL 10/10/18 Unknown CSF Total Protein 84 mg/dL 10/10/18 Unknown CSF VDRL Reactive 1:2 (Nonreactive) H 10/10/18 Unknown Vancomycin Trough 14.3 ug/mL (5.0-20.0) 09/25/18 14:45 Random Vancomycin 10.7 ug/mL (0-40.0) 10/12/18 03:30 Urine Opiates Screen Presumptive negative 09/17/18 15:52 Urine Methadone Screen Presumptive negative 09/17/18 15:52 Ur Barbiturates Screen Presumptive negative 09/17/18 15:52 Ur Phencyclidine Scrn Presumptive negative 09/17/18 15:52 Ur Amphetamines Screen Presumptive negative 09/17/18 15:52 U Benzodiazepines Scrn Presumptive negative 09/17/18 15:52 Urine Cocaine Screen Presumptive negative 09/17/18 15:52 U Marijuana (THC) Screen Presumptive negative 09/17/18 15:52 Drugs of Abuse Note Disclamer 09/17/18 15:52 Proteinase 3 (PR3) Ab <1.0 AI (<1.0) 10/12/18 09:46 Myeloperoxidase Ab <1.0 AI (<1.0) 10/12/18 09:46 Complement C3 184 mg/dL (82-185) 10/12/18 09:46 Complement C4 45 mg/dL (15-53) 10/12/18 09:46 Lymph Enumerat CD4/CD8 0.01 (0.86-5.00) L 09/13/18 12:29 % CD3 Cells 71 % (57-85) 09/13/18 12:29 Absolute CD3 Count 220 cells/uL (840-3060) L 09/13/18 12:29 % CD4 Cells 1 % (30-61) L 09/13/18 12:29 Absolute CD4 Count 4 cells/uL (490-1740) L 09/13/18 12:29 % CD8 Cells 70 % (12-42) H 09/13/18 12:29 Absolute CD8 Count 216 cells/uL (180-1170) 09/13/18 12:29 % CD19 Cells 17 % (6-29) 09/13/18 12:29 Absolute CD19 Count 54 cells/uL (110-660) L 09/13/18 12:29 RPR Titer 1:16 09/13/18 12:29 RPR Reactive (Nonreactive) 09/13/18 12:29 T.pallidum Ab (FTA-ABS) Reactive (Nonreactive) H 09/14/18 16:34 C. 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 See scanned results 10/03/18 06:12 Hepatitis A IgM Ab Non-reactive (NonReactive) 09/13/18 12:29 Hep Bs Antigen Non-reactive (Negative) 09/13/18 12:29 Hep B Core IgM Ab Non-reactive (NonReactive) 09/13/18 12:29 Hepatitis C Antibody Non-reactive (NonReactive) 09/13/18 12:29 HIV-1 Antibody See scanned result 09/11/18 19:14 HIV-1 RNA PCR copies/ml 31620 Copies/mL H 09/13/18 12:29 HIV-1 RNA (PCR) log 4.71 Log cps/mL H 09/13/18 12:29 HIV-2 Ab (Immunoblot) See scanned result 09/11/18 19:14 HIV 1&2 Antibody Rapid Reactive (Non React) 09/11/18 19:14 HIV P24 Antigen Non react (Non React) 09/11/18 19:14 Influenza A (Rapid) Negative (Negative) 09/13/18 16:05 Influenza A (RT-PCR) Negative (Negative) 09/13/18 16:05 Influenza B (Rapid) Negative (Negative) 09/13/18 16:05 Influenza B (RT-PCR) Negative (Negative) 09/13/18 16:05 Toxoplasma IgG Ab <7.20 IU/mL (<7.20) 09/16/18 12:09 Miscellaneous Test Flexitest 1 H 10/10/18 Unknown Nutrition/Malnutrition Assess - Dietary Evaluation Nutrition/Malnutrition Findings: Nutrition Notes Start: 09/12/18 17:45 Freq: Status: Active Protocol: Document 10/18/18 12:54 (Rec: 10/18/18 13:02 [email or web address]) Co-Sign 10/18/18 12:54 LP Nutrition Notes Initial or Follow up Reassessment Current Diagnosis Acute Kidney Injury,Sepsis, Respiratory Failure Other Pertinent Diagnosis On HD, HIV, bilat pneu, gastroenteritis, encephalopathy Current Diet Vital AF at 60 ml/hr Labs/Tests No labs since 3/3 Pertinent Medications Lopressor Height 6 ft Weight 122.7 kg [place] Body Weight (kg) 80.90 BMI 36.6 Subjective/Other Information Pt. f/u for TF change and tolerance. Observed Vital AF infusing at goal rate of 60ml/ hr. Per RN, night RN shut off TF due to residuals of 300 ml. However, current RN has not observed any residuals since TF restart. Percent of energy/protein needs met: 94%/67% Burn Absent Trauma Absent #2 Nutrition Diagnosis Inadequate oral intake Diagnosis Progress(for reassessment Continues documentation) #1 Nutrition Diagnosis Malnutrition Diagnosis Progress(for reassessment Continues documentation) Is patient on ventilator? Yes Is Patient Ambulatory and/or Out of Bed No REE-([place]-St. Jeor-confined to bed) 2653.692 Kcal/Kg value to use for calculation 15 Approximate Energy Requirements Using 1841 kcal/Kg Calculation Used for Recommendations Kcal/kg Additional Notes Pro needs: 162 g/day (2g/kg IBW) Fluid: 1 ml/kcal Nutrition Intervention Change Diet Order: Continue TF Nutrition Support: Vital AF 1.2 at 60ml/hr Flush with 100ml q4h Kcal 1,728 Protein (gm) 108 Fluid (mL) 1,203 Goal #1 Continue to meet at least 80% of energy and 65% of protein needs due to renal function. Anticipated Discharge Needs: Unable to determine at this time Follow-Up By: 10/20/18 Additional Comments F/u for stable TF, renal labs
--- NOTE | 2018-10-19 11:43 | Progress Note ---
Assessment and Plan - Patient Problems (1) Acute kidney failure with tubular necrosis Current Visit: Yes Status: Acute Plan to address problem: Acute tubular necrosis secondary to sepsis, initiated on HD on 10/16/18. Pt still with significant azotemia/volume overload, will cont HD on MWF schedule with target UF 1-2L as tolerated. Use 4K bath given persistent hypokalemia. additional KCl 20meq IV given. avoid further nephrotoxins, incl. NSAIDs IV cont rast as possible. Will monitor I/Os lytes/renal parameters closely and make further recommendations (2) Sepsis Current Visit: Yes Status: Acute Plan to address problem: Continue AB per ID. 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 Continue treatment for both per the infectious disease. 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 Improved. Subjective Date of service: 10/19/18 Principal diagnosis: MAL ATN Interval history: Pt remains intubated, opening eyes spontaneously, not following commands Objective - Vital Signs Vital signs: Vital Signs - 12hr 10/19/18 10/19/18 10/19/18 00:00 01:00 01:57 Temperature 98.6 F Pulse Rate 84 91 H Pulse Rate [ 89 Bases] Pulse Rate [ From Monitor] Pulse Rate [ Left Dorsalis Pedis] Pulse Rate [ Throughout] Respiratory 16 18 Rate Respiratory 18 Rate [Bases] Respiratory Rate [ Throughout] Blood Pressure 129/70 135/83 O2 Sat by Pulse 98 100 Oximetry O2 Sat by Pulse Oximetry [ Anterior Bilateral Throughout] 10/19/18 10/19/18 10/19/18 02:00 02:10 03:00 Temperature Pulse Rate 93 H 92 H Pulse Rate [ 89 Bases] Pulse Rate [ From Monitor] Pulse Rate [ Left Dorsalis Pedis] Pulse Rate [ Throughout] Respiratory 15 25 H Rate Respiratory 17 Rate [Bases] Respiratory Rate [ Throughout] Blood Pressure 135/88 133/91 O2 Sat by Pulse 100 Oximetry O2 Sat by Pulse Oximetry [ Anterior Bilateral Throughout] 10/19/18 10/19/18 10/19/18 03:25 03:42 04:00 Temperature 98.2 F Pulse Rate 22 L 90 Pulse Rate [ Bases] Pulse Rate [ 68 From Monitor] Pulse Rate [ 68 Left Dorsalis Pedis] Pulse Rate [ Throughout] Respiratory 21 19 Rate Respiratory Rate [Bases] Respiratory Rate [ Throughout] Blood Pressure 133/91 129/78 O2 Sat by Pulse 100 100 100 Oximetry O2 Sat by Pulse Oximetry [ Anterior Bilateral Throughout] 10/19/18 10/19/18 10/19/18 05:00 06:00 07:00 Temperature Pulse Rate 92 H 92 H 97 H Pulse Rate [ Bases] Pulse Rate [ From Monitor] Pulse Rate [ Left Dorsalis Pedis] Pulse Rate [ Throughout] Respiratory 19 20 21 Rate Respiratory Rate [Bases] Respiratory Rate [ Throughout] Blood Pressure 141/90 131/84 126/87 O2 Sat by Pulse 100 94 96 Oximetry O2 Sat by Pulse Oximetry [ Anterior Bilateral Throughout] 10/19/18 10/19/18 10/19/18 07:57 08:00 08:02 Temperature 100 F H Pulse Rate 95 H 94 H Pulse Rate [ Bases] Pulse Rate [ From Monitor] Pulse Rate [ Left Dorsalis Pedis] Pulse Rate [ 96 H Throughout] Respiratory 17 17 Rate Respiratory Rate [Bases] Respiratory 18 Rate [ Throughout] Blood Pressure 117/79 117/79 O2 Sat by Pulse 100 95 Oximetry O2 Sat by Pulse Oximetry [ Anterior Bilateral Throughout] 10/19/18 10/19/18 10/19/18 08:24 08:45 09:00 Temperature 97.8 F Pulse Rate 98 H 101 H Pulse Rate [ 98 H Bases] Pulse Rate [ From Monitor] Pulse Rate [ Left Dorsalis Pedis] Pulse Rate [ Throughout] Respiratory 20 18 Rate Respiratory 18 Rate [Bases] Respiratory Rate [ Throughout] Blood Pressure 138/84 138/84 O2 Sat by Pulse 94 Oximetry O2 Sat by Pulse 100 Oximetry [ Anterior Bilateral Throughout] 10/19/18 10/19/18 10/19/18 09:15 09:30 09:45 Temperature Pulse Rate 96 H 100 H 100 H Pulse Rate [ Bases] Pulse Rate [ From Monitor] Pulse Rate [ Left Dorsalis Pedis] Pulse Rate [ Throughout] Respiratory Rate Respiratory Rate [Bases] Respiratory Rate [ Throughout] Blood Pressure 145/83 137/95 143/102 O2 Sat by Pulse Oximetry O2 Sat by Pulse Oximetry [ Anterior Bilateral Throughout] 10/19/18 10/19/18 10/19/18 10:00 10:15 10:30 Temperature Pulse Rate 101 H 101 H 103 H Pulse Rate [ Bases] Pulse Rate [ From Monitor] Pulse Rate [ Left Dorsalis Pedis] Pulse Rate [ Throughout] Respiratory Rate Respiratory Rate [Bases] Respiratory Rate [ Throughout] Blood Pressure 147/93 126/90 125/91 O2 Sat by Pulse Oximetry O2 Sat by Pulse Oximetry [ Anterior Bilateral Throughout] 10/19/18 10/19/18 10/19/18 10:45 11:00 11:15 Temperature Pulse Rate 104 H 102 H 104 H Pulse Rate [ Bases] Pulse Rate [ From Monitor] Pulse Rate [ Left Dorsalis Pedis] Pulse Rate [ Throughout] Respiratory Rate Respiratory Rate [Bases] Respiratory Rate [ Throughout] Blood Pressure 126/92 132/90 127/94 O2 Sat by Pulse Oximetry O2 Sat by Pulse Oximetry [ Anterior Bilateral Throughout] 10/19/18 11:25 Temperature Pulse Rate 110 H Pulse Rate [ Bases] Pulse Rate [ From Monitor] Pulse Rate [ Left Dorsalis Pedis] Pulse Rate [ Throughout] Respiratory 24 Rate Respiratory Rate [Bases] Respiratory Rate [ Throughout] Blood Pressure 127/94 O2 Sat by Pulse 100 Oximetry O2 Sat by Pulse Oximetry [ Anterior Bilateral Throughout] - General Appearance General appearance: well-developed, appears stated age, intubated EENT: ATNC, PERRL, mucous membranes moist Neck: no JVD Respiratory: Present: Ronchi Cardiology: regular, S1S2 Gastrointestinal: normoactive bowel sounds Integumentary: no rash, other (++ edema b/l LE ) Neurologic: other (intubated ) - Lab 10/19/18 04:00 10/19/18 06:15 Most recent lab results Calcium 7.9 mg/dL (8.4-10.2) L 10/19/18 06:15 Phosphorus 8.50 mg/dL (2.5-4.5) H 10/14/18 09:40 Magnesium 2.10 mg/dL (1.7-2.3) 10/14/18 09:40 Urine Creatinine 57.5 mg/dL (0.1-20.0) H 10/11/18 05:40 Urine Sodium 70 mmol/L 10/11/18 05:40 Urine Total Protein 44 mg/dL (5-11.8) H 10/11/18 05:40 Medications & Allergies - Medications Allergies/Adverse Reactions: Allergies No Known Allergies Allergy (Unverified 09/11/18 17:50) Home Medications: Home Medications Medication Instructions Recorded Confirmed Last Taken Type No Known Home Medications [No 10/02/18 10/02/18 Unknown History Reported Home Medications] Active Medications: Generic Name Dose Route Start Last Admin Trade Name Freq PRN Reason Stop Dose Admin Acetaminophen 650 mg 09/11/18 19:30 10/09/18 16:32 Tylenol PO 650 mg Q4H PRN Administration Pain MILD(1-3)/Fever >100.5/RIVERA Acetaminophen 650 mg 09/21/18 07:39 10/07/18 21:15 Tylenol MD 650 mg Q4H PRN Administration Fever >101 Albuterol 2.5 mg 09/11/18 19:30 09/16/18 06:09 Proventil IH 2.5 mg Q4HRT PRN Administration Shortness Of Breath Albuterol 2.5 mg 09/20/18 20:00 10/19/18 08:02 Proventil IH 2.5 mg Q6HRT GIA Administration Amiodarone HCl 200 mg 09/27/18 15:00 10/18/18 21:52 Cordarone PO 200 mg BID GIA Administration Lipase/Protease/Amylase 1 each 09/30/18 12:01 Pancrealen Gibsb 10,500 Unit FEEDTUBE PRN PRN For Clogged Feeding Tube Atovaquone 750 mg 09/21/18 10:00 10/18/18 21:51 Mepron PO 750 mg BID GIA Administration Azithromycin 1,200 mg 10/18/18 10:00 10/18/18 10:35 Zithromax PO 1,200 mg Tu GIA Administration Emtricitabine 200 mg 10/13/18 10:00 10/17/18 09:47 Emtriva PO 200 mg Q96H GIA Administration Famotidine 20 mg 10/10/18 10:00 10/18/18 10:34 Pepcid PO 20 mg DAILY GIA Administration Fluconazole 200 mg 10/05/18 12:00 10/18/18 10:33 Diflucan PO 200 mg QDAY GIA Administration Folic Acid 1 mg 10/07/18 10:00 10/18/18 10:34 Folvite PO 1 mg QDAY GIA Administration Glycopyrrolate 2 mg 10/07/18 18:00 10/19/18 05:50 Robinul PO 2 mg Q6HR GIA Administration Heparin Sodium (Porcine) 5,000 unit 10/05/18 14:00 10/19/18 05:50 Heparin SUB-Q 5,000 unit Q8HR GIA Administration Hydrophilic Ointment 1 applic 09/21/18 01:46 09/22/18 03:46 Vaseline Lip Therapy TP 1 applic Q2HR PRN Administration Dry Lips Ganciclovir Sodium 150 mg/ 250 mls @ 100 mls/hr 10/12/18 10:00 10/17/18 09:47 Sodium Chloride IV 100 mls/hr MoWeFr GIA Administration Sodium Chloride 100 mls @ 999 mls/hr 10/15/18 12:33 Nacl 0.9% IV CHERYL PRN Hypotension Sodium Chloride 100 mls @ 999 mls/hr 10/17/18 10:39 Nacl 0.9% IV CHERYL PRN Hypotension Levetiracetam 750 mg 10/12/18 22:00 10/18/18 21:50 Keppra PO 750 mg BID GIA Administration Levothyroxine Sodium 25 mcg 09/19/18 06:00 10/19/18 06:00 Synthroid PO 25 mcg DAILY@0600 GIA Administration Metoprolol Tartrate 12.5 mg 10/10/18 13:00 10/18/18 21:47 Lopressor PO 12.5 mg BID GIA Administration Multi-Ingred Cream/Lotion/Oil/Oint 1 applic 09/21/18 01:46 Artificial Tears Ophth Oint OU Q4HR PRN Dry Eye(s) Ondansetron HCl 4 mg 09/11/18 19:30 Zofran IV Q8H PRN Nausea And Vomiting Scopolamine 1 each 09/18/18 18:00 10/18/18 17:18 Transderm-Scop TD 1 each Q3D GIA Administration Simple Syrup 15 ml 09/30/18 12:01 10/07/18 06:18 Simple Syrup FEEDTUBE 15 ml PRN PRN Administration Hypoglycemia Simple Syrup 15 ml 10/15/18 10:45 Simple Syrup FEEDTUBE PRN PRN Hypoglycemia Simple Syrup 30 ml 10/15/18 10:45 Simple Syrup FEEDTUBE PRN PRN Hypoglycemia Sodium Bicarbonate 325 mg 10/15/18 10:45 Sodium Bicarbonate FEEDTUBE PRN PRN For Clogged Feeding Tube Sodium Chloride 10 ml 09/11/18 22:00 10/18/18 21:50 Sodium Chloride Flush Syringe 10 Ml IV 10 ml BID GIA Administration Sodium Chloride 10 ml 09/11/18 19:30 Sodium Chloride Flush Syringe 10 Ml IV PRN PRN LINE FLUSH Tenofovir Disoproxil Fumarate 300 mg 10/13/18 10:00 10/17/18 09:46 Viread PO 300 mg Q96H GIA Administration
[2018-10-19 12:50] LABS: Anisocytosis 1+; Basophils % (Manual) 0 % (0.0-1.8); Hypochromasia 2+; Ovalocytes Few; Platelet Estimate Consistent w Auto; Poikilocytosis 1+; Target Cells Few; Total Cells Counted 100
[2018-10-19] MEDS: PEPCID PO SCH (13:05)
[2018-10-19] MEDS: KEPPRA PO SCH ×2 (13:06→21:18)
[2018-10-19] MEDS: NACL 0.9% IV SCH (13:07)
[2018-10-19] MEDS: CYTOVENE IV SCH (13:07)
[2018-10-19] MEDS: FOLVITE PO SCH (13:07)
[2018-10-19] MEDS: CORDARONE PO SCH ×2 (13:08→21:18)
[2018-10-19] MEDS: LOPRESSOR PO SCH ×2 (13:09→21:18)
[2018-10-19] MEDS: TIVICAY PO SCH (13:10)
[2018-10-19] MEDS: MEPRON PO SCH ×2 (13:10→21:18)
[2018-10-19] MEDS: SODIUM CHLORIDE FLUSH SYRINGE 10 ML IV SCH ×2 (13:11→21:20)
[2018-10-19] MEDS: DIFLUCAN PO SCH (13:11)
--- NOTE | 2018-10-19 15:09 | Progress Note ---
Assessment and Plan Cultures: 09/11/2018 blood culture: no growth 09/13/2018 serum cryptococcus ag neg 09/14/2018 CSF cryptococcus ag neg 09/14/2018 stool Nona 09/15/2018 stool +Giardia ag 09/19/2018 CSF cryptococcus ag neg 09/21/2018 tracheal aspirate culture: Nona albicans 09/23/2018 blood culture: No growth 09/23/2018 Fungal blood culture: no growth thus far 10/09/2018 blood culture: No growth A/P: 33 y/o male with no PMH; admitted on 09/11/2018 due to 4 days-AMS/behavioral changes, nausea, vomiting, diarrhea, weight loss and cough: 1) Low grade fevers: resolved ? likely IRIS related (ART started on 09/30) versus NGT-associated sinusitis/mastoiditis versus CMV encephalitis. shock resolved. Completed 10 days of Ceftriaxone, off since 10/03/2018. On ganciclovir for disseminated CMV. On vanco/cefepime for sinusitis/mastoiditis. 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 WBC remains low could be from CMV v/s ganciclovir. Clinically better - CMV DNA PCR 09/16/2018 is 1,058,978, 6 log - CMV DNA PCR 09/26/2018 is 710K, 5.85 log - CMV DNA PCR 10/03/2018 is 262K, 5.4 log 3) Acute respiratory failure: still on the vent minimal settings, mainly due to mental status issues. PJP DFA negative. CXR stable without pneumonia. 4) Acute encephalopathy: slighltly better; possibly from neurosyphilis and CMV confirmed encephalitis v/s metabolic etiology. Of note, MRI did not show ventriculitis. CSF YAYO virus DNA PCR neg. Toxo IgG negative. He has received 20 days of Pen G IV and Ganciclovir with minimal improvement, still somnolent and nystagmus noted ? neurosyphilis treatement failure ? other etiologies like m etabolic, CVA. Discussed with neuro Dr Nazario EEG x 2 no epileptic activity - "Up to 4 EEGs over several months may be needed to capture interictal epileptiform activity". - repeat LP 10/10/3018 WBC 10, RBC 22K (traumatic), glu 47, prot 84 from 194, VDRL reactive 1:2 - Seizures reported on 10/09-10/10 - CT head done showed mild atrophy. No acute intracranial abnormalities. Paranasal sinus disease and new opacification of multiple mastoid air cells on the right and a few on the left suggesting acute mastoiditis. - MRI brain repeat 10/10 significant bilateral mastoiditis, generalized brain atrophy and stable paranasal sinusitis - CSF CMV DNA PCR on 10/10/2018 is 43,564 4.6 log 5) Neurosyphilis: CSF VDRL positive, off Ceftriaxone and back on IV Penicillin completed 21 days 6) Diarrhea: likely due to Giardiasis as Giardia antigen positive in stool, in immunocompromised patient. Completed several days of Flagyl, stopped on 10/03/2018. 7) Oral candidiasis: on fluconazole, will need to continue as prophylaxis till immune reconstitution. 8) A.fib: cardiology following. On Amiodarone. 9) HIV/AIDS: newly diagnosed. Risk factor is MSM behavior. CD4=4. VL=50,700. 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 We started him on Tenofovir, Emtricitabine + Dolutegravir on 09/30/2018, watch closely for IRIS. 10) Neutropenia: likely from HIV/CMV myelosuppression. Also probably worse from ganciclovir. r/o disseminated MAC, thus far cultures negative. 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 started on HD 12) NGT-associated sinusitis/mastoiditis, fully treated for 7 days. NGT changed to OGT. Recs: - to have PEG/trach - continue IV Ganciclovir D28 at 5 mg/kg 3 times a week - renally adjusted again today, continue till CMV PCR is <200 - renal con board - all antibiotics are renally adjusted for CrCl < 10 - completed IV Penicillin G 24 million units daily for 21 days on 10/08/2018 - f/u serum CMV DNA PCR ordered 10/17 - continue atovaquone and azithromycin prophylaxis - continue fluconazole 200 mg daily PO as prophylaxis - continue HAART: Tenofovir, Emtricitabine + Dolutegravir watch closely for IRIS - renally adjusted today - monitor daily CBC, BMP - s/p neupogen 1 dose on 10/05/2018, hematology on board agree with additional Neupogen as needed from ID standpoint Overall prognosis poor/complex case Will follow Alayna Menendez MD Infectious Diseases [employer] [facility] M [phone] O [phone] Subjective Date of service: 10/19/18 Principal diagnosis: MAL ATN Interval history: Patient remains alert follows simple commands inconsistently, intubated on CPAP, open eyes, tmax 100 ROS: unable to obtain Objective - Exam Narrative Exam: Constitutional: Intubated alert follows simple commands inconsistently open eyes in NAD Head, Ears, Nose: Normocephalic, atraumatic. External ears, nose normal Eyes: Conjunctivae/corneas clear. No icterus. No ptosis.no nystagmus Neck:no JVD, left anterior neck large hard nodule non tender Oral: ETT, OGT Cardiovascular: tachycardic Respiratory: distant BS GI: Soft, non-tender; bowel sounds normal. No peritoneal signs Musculoskeletal: No pedal edema, no cyanosis. Skin: No rash or abscess. Hem/Lymphatic: No palpable cervical or supraclavicular nodes. No lymphangitis Psych: alert Neurological: alert, moves right hand, squeezed his left hand upon request PICC line 2/6 HD femoral - Constitutional Vitals: Vital Signs Temp Pulse Resp BP Pulse Ox 97.8 F 95 H 17 121/75 100 10/19/18 12:22 10/19/18 14:56 10/19/18 14:56 10/19/18 13:09 10/19/18 12:22 Temperature -Last 24 Hours Temperature 97.8 F Temperature 97.8 F Temperature 100 F Temperature 98.2 F Temperature 98.6 F Temperature 98.0 F Temperature 98.4 F - Labs CBC & Chem 7: 10/19/18 04:00 10/19/18 06:15 Labs: Abnormal lab results 10/19/18 10/19/18 Range/Units 04:00 06:15 WBC 0.7 L* (4.5-11.0) K/mm3 RBC 2.77 L (3.65-5.03) M/mm3 Hgb 7.9 L (11.8-15.2) gm/dl Hct 24.7 L (35.5-45.6) % RDW 19.4 H (13.2-15.2) % Plt Count 112 L (140-440) K/mm3 Monocytes % (Manual) 17.0 H (0.0-7.3) % Eosinophils % (Manual) 6.0 H (0.0-4.3) % Seg Neutrophils # Man 0.3 L (1.8-7.7) K/mm3 Lymphocytes # (Manual) 0.2 L (1.2-5.4) K/mm3 Potassium 2.9 L* (3.6-5.0) mmol/L Carbon Dioxide 19 L (22-30) mmol/L BUN 107 H (9-20) mg/dL Creatinine 5.9 H (0.8-1.5) mg/dL Calcium 7.9 L (8.4-10.2) mg/dL AST 54 H (5-40) units/L Total Protein 5.7 L (6.3-8.2) g/dL Albumin 2.5 L (3.9-5) g/dL
[2018-10-19 15:14] LABS: Hematocrit 24.6 % (35.5-45.6); Hemoglobin 8.3 gm/dl (11.8-15.2); Mean Corpuscular HGB Conc 34 % (32-34); Mean Corpuscular Volume 89 fl (84-94); Platelet Count 105 K/mm3 (140-440); Red Blood Count 2.77 M/mm3 (3.65-5.03); Red Cell Distribution Width 19.2 % (13.2-15.2)
[2018-10-19 20:41] LABS: Total Cells Counted 50
[2018-10-19 20:42] LABS: Anisocytosis 1+; Platelet Estimate Consistent w Auto
[2018-10-20] MEDS: ROBINUL PO SCH ×5 (00:16→23:12)
[2018-10-20] MEDS: PROVENTIL IH SCH ×4 (01:27→19:15)
[2018-10-20] MEDS: HEPARIN SUB-Q SCH (05:28)
[2018-10-20] MEDS: SYNTHROID PO SCH (05:29)
--- NOTE | 2018-10-20 08:09 | Progress Note ---
Assessment and Plan Cultures: 09/11/2018 blood culture: no growth 09/13/2018 serum cryptococcus ag neg 09/14/2018 CSF cryptococcus ag neg 09/14/2018 stool Nona 09/15/2018 stool +Giardia ag 09/19/2018 CSF cryptococcus ag neg 09/21/2018 tracheal aspirate culture: Nona albicans 09/23/2018 blood culture: No growth 09/23/2018 Fungal blood culture: no growth thus far 10/09/2018 blood culture: No growth A/P: 33 y/o male with no PMH; admitted on 09/11/2018 due to 4 days-AMS/behavioral changes, nausea, vomiting, diarrhea, weight loss and cough: 1) Low grade fevers: resolved ? likely IRIS related (ART started on 09/30) versus NGT-associated sinusitis/mastoiditis versus CMV encephalitis. shock resolved. Completed 10 days of Ceftriaxone, off since 10/03/2018. On ganciclovir for disseminated CMV. On vanco/cefepime for sinusitis/mastoiditis. 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 WBC remains low could be from CMV v/s ganciclovir. Clinically better - CMV DNA PCR 09/16/2018 is 1,058,978, 6 log - CMV DNA PCR 09/26/2018 is 710K, 5.85 log - CMV DNA PCR 10/03/2018 is 262K, 5.4 log 3) Acute respiratory failure: still on the vent minimal settings, mainly due to mental status issues. PJP DFA negative. CXR stable without pneumonia. 4) Acute encephalopathy: slighltly better; possibly from neurosyphilis and CMV confirmed encephalitis v/s metabolic etiology. Of note, MRI did not show ventriculitis. CSF YAYO virus DNA PCR neg. Toxo IgG negative. He has received 20 days of Pen G IV and Ganciclovir with minimal improvement, still somnolent and nystagmus noted ? neurosyphilis treatement failure ? other etiologies like m etabolic, CVA. Discussed with neuro Dr Nazario EEG x 2 no epileptic activity - "Up to 4 EEGs over several months may be needed to capture interictal epileptiform activity". - repeat LP 10/10/3018 WBC 10, RBC 22K (traumatic), glu 47, prot 84 from 194, VDRL reactive 1:2 - Seizures reported on 10/09-10/10 - CT head done showed mild atrophy. No acute intracranial abnormalities. Paranasal sinus disease and new opacification of multiple mastoid air cells on the right and a few on the left suggesting acute mastoiditis. - MRI brain repeat 10/10 significant bilateral mastoiditis, generalized brain atrophy and stable paranasal sinusitis - CSF CMV DNA PCR on 10/10/2018 is 43,564 4.6 log 5) Neurosyphilis: CSF VDRL positive, off Ceftriaxone and back on IV Penicillin completed 21 days 6) Diarrhea: likely due to Giardiasis as Giardia antigen positive in stool, in immunocompromised patient. Completed several days of Flagyl, stopped on 10/03/2018. 7) Oral candidiasis: on fluconazole, will need to continue as prophylaxis till immune reconstitution. 8) A.fib: cardiology following. On Amiodarone. 9) HIV/AIDS: newly diagnosed. Risk factor is MSM behavior. CD4=4. VL=50,700. 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 We started him on Tenofovir, Emtricitabine + Dolutegravir on 09/30/2018, watch closely for IRIS. 10) Neutropenia: likely from HIV/CMV myelosuppression. Also probably worse from ganciclovir. r/o disseminated MAC, thus far cultures negative. 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 started on HD 12) NGT-associated sinusitis/mastoiditis, fully treated for 7 days. NGT changed to OGT. Recs: - to have PEG/trach - continue IV Ganciclovir D29 at 5 mg/kg 3 times a week - renally adjusted again today, continue till CMV PCR is <200 - renal con board - all antibiotics are renally adjusted for CrCl < 10 - completed IV Penicillin G 24 million units daily for 21 days on 10/08/2018 - f/u serum CMV DNA PCR ordered 10/17 - continue atovaquone and azithromycin prophylaxis - continue fluconazole 200 mg daily PO as prophylaxis - continue HAART: Tenofovir, Emtricitabine + Dolutegravir watch closely for IRIS - renally adjusted today - monitor daily CBC, BMP - s/p neupogen 1 dose on 10/05/2018, hematology on board agree with additional Neupogen as needed from ID standpoint Overall prognosis poor/complex case Dr Lopez to round tomorrow Alayna Menendez MD Infectious Diseases [employer] [facility] ([facility]) M [phone] O [phone] Subjective Date of service: 10/20/18 Principal diagnosis: low wbc - hiv Interval history: Patient remains alert follows simple commands inconsistently, intubated on vent, open eyes, tmax 99.7 ROS: unable to obtain Objective - Exam Narrative Exam: Constitutional: Intubated alert follows simple commands inconsistently open eyes in NAD Head, Ears, Nose: Normocephalic, atraumatic. External ears, nose normal Eyes: Conjunctivae/corneas clear. No icterus. No ptosis.no nystagmus Neck:no JVD, left anterior neck large hard nodule non tender Oral: ETT, OGT Cardiovascular: tachycardic Respiratory: distant BS GI: Soft, non-tender; bowel sounds normal. No peritoneal signs Musculoskeletal: No pedal edema, no cyanosis. Skin: No rash or abscess. Hem/Lymphatic: No palpable cervical or supraclavicular nodes. No lymphangitis Psych: alert Neurological: alert, moves right hand, squeezed his left hand upon request PICC line 2/6 HD femoral - Constitutional Vitals: Vital Signs Temp Pulse Resp BP Pulse Ox 98.9 F 91 H 18 124/78 100 10/20/18 04:00 10/20/18 07:00 10/20/18 07:00 10/20/18 07:00 10/20/18 06:00 Temperature -Last 24 Hours Temperature 98.9 F Temperature 98.7 F Temperature 99.2 F Temperature 99.7 F Temperature 97.7 F Temperature 97.8 F Temperature 97.7 F Temperature 97.8 F - Labs CBC & Chem 7: 10/19/18 14:54 10/19/18 06:15 Labs: Abnormal lab results 10/19/18 10/19/18 10/19/18 Range/Units 04:00 06:15 14:54 WBC 0.7 L* (4.5-11.0) K/mm3 RBC 2.77 L (3.65-5.03) M/mm3 Hgb 8.3 L (11.8-15.2) gm/dl Hct 24.6 L (35.5-45.6) % RDW 19.2 H (13.2-15.2) % Plt Count 105 L (140-440) K/mm3 Monocytes % (Manual) 17.0 H 16.0 H (0.0-7.3) % Eosinophils % (Manual) 6.0 H (0.0-4.3) % Basophils % (Manual) 2.0 H (0.0-1.8) % Seg Neutrophils # Man 0.3 L 0.3 L (1.8-7.7) K/mm3 Lymphocytes # (Manual) 0.2 L 0.2 L (1.2-5.4) K/mm3 Potassium 2.9 L* (3.6-5.0) mmol/L Carbon Dioxide 19 L (22-30) mmol/L BUN 107 H (9-20) mg/dL Creatinine 5.9 H (0.8-1.5) mg/dL POC Glucose (70-105) Calcium 7.9 L (8.4-10.2) mg/dL AST 54 H (5-40) units/L Total Protein 5.7 L (6.3-8.2) g/dL Albumin 2.5 L (3.9-5) g/dL 10/20/18 Range/Units 05:34 WBC (4.5-11.0) K/mm3 RBC (3.65-5.03) M/mm3 Hgb (11.8-15.2) gm/dl Hct (35.5-45.6) % RDW (13.2-15.2) % Plt Count (140-440) K/mm3 Monocytes % (Manual) (0.0-7.3) % Eosinophils % (Manual) (0.0-4.3) % Basophils % (Manual) (0.0-1.8) % Seg Neutrophils # Man (1.8-7.7) K/mm3 Lymphocytes # (Manual) (1.2-5.4) K/mm3 Potassium (3.6-5.0) mmol/L Carbon Dioxide (22-30) mmol/L BUN (9-20) mg/dL Creatinine (0.8-1.5) mg/dL POC Glucose 113 H (70-105) Calcium (8.4-10.2) mg/dL AST (5-40) units/L Total Protein (6.3-8.2) g/dL Albumin (3.9-5) g/dL
--- NOTE | 2018-10-20 08:10 | Hem/Onc Progress Note ---
Assessment and Plan 1. Leukopenia. ANC is 0.5. Neutropenic precaution is practical. 2. Anemia. We will investigate. 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 HAART has been started. At this time, there is no fever. 3. Human immunodeficiency virus, on HAART. 4. 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 5. Intubated. 6. On antibiotics for pneumonia. 7. History of ____ that is improved. 8. Looks at you, but does not communicate. 9. History of oral candidiasis. 10. Mention of giardiasis. 11. Encephalopathy. 12. RVR with atrial fibrillation. I will follow the patient during inpatient stay. At this time, his cytopenia is likely secondary to the HIV or the CMV. I will discuss with ID team to see if G-CSF support is an option. 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 - nephrology 10/12 - trach - peg not done - as family deciding the GCSF - did not change the WBC 10/13 - wbc 1 - opens eye - non communicative 10/14 - pt moves rt arm - eyes open still on vent - as per info - family is thinking about PEG - trach - they have not consented granix trial for low wbc 10/15 - gcsf trial - poor prognosis due to performance status 10/16 - dialysis cath wbc low - gCSF 10/17 - wbc still low - poor prognosis - ct folic acid for anemia 10/18 - not much improvement - last cbc on 10/16 10/19 - wbc low - moving left toes 10/20 - low counts may be HIV or meds related - Patient Problems (1) Neutropenia Current Visit: Yes Status: Acute Subjective Date of service: 10/20/18 Principal diagnosis: low wbc Interval history: non communicative Objective - Exam Narrative Exam: non communicative - Constitutional Vitals: Last Vital Signs Temp 98.9 F 10/20/18 04:00 Pulse 91 H 03/07/19 07:00 Resp 18 10/20/18 07:00 BP 124/78 10/20/18 07:00 Pulse Ox 100 10/20/18 06:00 General appearance: no acute distress, other (vent) Performance status: 4-completely disabled - EENT Lymph node exam: negative cervical - Respiratory Respiratory effort: Positive: normal Respiratory: bilateral: diminished (on vent) - Cardiovascular Heart Sounds: Present: S1 & S2 Extremity abnormal: edema - Gastrointestinal General gastrointestinal: Present: soft Rectal Exam: deferred - Genitourinary Male genitourinary: Present: deferred - Integumentary Integumentary: warm - Musculoskeletal Musculoskeletal: generalized weakness - Labs Lab Results: Laboratory Results - last 24 hr 10/19/18 10/19/18 10/19/18 04:00 06:15 12:08 WBC RBC Hgb Hct MCV MCH MCHC RDW Plt Count Add Manual Diff Complete Total Counted 100 Seg Neuts % (Manual) 49.0 Band Neutrophils % 2.0 Lymphocytes % (Manual) 26.0 Reactive Lymphs % (Man) 0 Monocytes % (Manual) 17.0 H Eosinophils % (Manual) 6.0 H Basophils % (Manual) 0 Metamyelocytes % 0 Myelocytes % 0 Promyelocytes % 0 Blast Cells % 0 Nucleated RBC % Not Reportable Seg Neutrophils # Man 0.3 L Band Neutrophils # 0.0 Lymphocytes # (Manual) 0.2 L Abs React Lymphs (Man) 0.0 Monocytes # (Manual) 0.1 Eosinophils # (Manual) 0.0 Basophils # (Manual) 0.0 Metamyelocytes # 0.0 Myelocytes # 0.0 Promyelocytes # 0.0 Blast Cells # 0.0 WBC Morphology Not Reportable Hypersegmented Neuts Not Reportable Hyposegmented Neuts Not Reportable Hypogranular Neuts Not Reportable Smudge Cells Not Reportable Toxic Granulation Not Reportable Toxic Vacuolation Not Reportable Dohle Bodies Not Reportable Pelger-Huet Anomaly Not Reportable Giovanna Rods Not Reportable Platelet Estimate Consistent w auto Clumped Platelets Not Reportable Plt Clumps, EDTA Not Reportable Large Platelets Not Reportable Giant Platelets Not Reportable Platelet Satelliting Not Reportable Plt Morphology Comment Not Reportable RBC Morphology Not Reportable Dimorphic RBCs Not Reportable Polychromasia Not Reportable Hypochromasia 2+ Poikilocytosis 1+ Anisocytosis 1+ Microcytosis 1+ Macrocytosis Not Reportable Spherocytes Not Reportable Pappenheimer Bodies Not Reportable Sickle Cells Not Reportable Target Cells Few Tear Drop Cells Not Reportable Ovalocytes Few Helmet Cells Not Reportable [place] Bodies Not Reportable [place] Not Reportable Dioni Cells Not Reportable Bite Cells Not Reportable Crenated Cell Not Reportable Elliptocytes Few Acanthocytes (Spur) Not Reportable Rouleaux Not Reportable Hemoglobin C Crystals Not Reportable Schistocytes Not Reportable Malaria parasites Not Reportable Kieran Bodies Not Reportable Hem Pathologist Commnt No Sodium 142 Potassium 2.9 L* Chloride 100.6 Carbon Dioxide 19 L Anion Gap 25 BUN 107 H Creatinine 5.9 H Estimated GFR 13 BUN/Creatinine Ratio 18 Glucose 96 POC Glucose 80 Calcium 7.9 L Total Bilirubin 0.30 AST 54 H ALT 36 Alkaline Phosphatase 57 Total Protein 5.7 L Albumin 2.5 L Albumin/Globulin Ratio 0.8 10/19/18 10/19/18 10/19/18 14:54 17:46 23:22 WBC 0.7 L* RBC 2.77 L Hgb 8.3 L Hct 24.6 L MCV 89 MCH 30 MCHC 34 RDW 19.2 H Plt Count 105 L Add Manual Diff Complete Total Counted 50 Seg Neuts % (Manual) 46.0 Band Neutrophils % 2.0 Lymphocytes % (Manual) 32.0 Reactive Lymphs % (Man) 0 Monocytes % (Manual) 16.0 H Eosinophils % (Manual) 2.0 Basophils % (Manual) 2.0 H Metamyelocytes % 0 Myelocytes % 0 Promyelocytes % 0 Blast Cells % 0 Nucleated RBC % Not Reportable Seg Neutrophils # Man 0.3 L Band Neutrophils # 0.0 Lymphocytes # (Manual) 0.2 L Abs React Lymphs (Man) 0.0 Monocytes # (Manual) 0.1 Eosinophils # (Manual) 0.0 Basophils # (Manual) 0.0 Metamyelocytes # 0.0 Myelocytes # 0.0 Promyelocytes # 0.0 Blast Cells # 0.0 WBC Morphology Not Reportable Hypersegmented Neuts Not Reportable Hyposegmented Neuts Not Reportable Hypogranular Neuts Not Reportable Smudge Cells Not Reportable Toxic Granulation Not Reportable Toxic Vacuolation Not Reportable Dohle Bodies Not Reportable Pelger-Huet Anomaly Not Reportable Giovanna Rods Not Reportable Platelet Estimate Consistent w auto Clumped Platelets Not Reportable Plt Clumps, EDTA Not Reportable Large Platelets Not Reportable Giant Platelets Not Reportable Platelet Satelliting Not Reportable Plt Morphology Comment Not Reportable RBC Morphology Not Reportable Dimorphic RBCs Not Reportable Polychromasia Not Reportable Hypochromasia Not Reportable Poikilocytosis Not Reportable Anisocytosis 1+ Microcytosis Not Reportable Macrocytosis Not Reportable Spherocytes Not Reportable Pappenheimer Bodies Not Reportable Sickle Cells Not Reportable Target Cells Not Reportable Tear Drop Cells Not Reportable Ovalocytes Not Reportable Helmet Cells Not Reportable [place] Bodies Not Reportable [place] Rings Not Reportable Dioni Cells Not Reportable Bite Cells Not Reportable Crenated Cell Not Reportable Elliptocytes Not Reportable Acanthocytes (Spur) Not Reportable Rouleaux Not Reportable Hemoglobin C Crystals Not Reportable Schistocytes Not Reportable Malaria parasites Not Reportable Kieran Bodies Not Reportable Hem Pathologist Commnt No Sodium Potassium Chloride Carbon Dioxide Anion Gap BUN Creatinine Estimated GFR BUN/Creatinine Ratio Glucose POC Glucose 81 87 Calcium Total Bilirubin AST ALT Alkaline Phosphatase Total Protein Albumin Albumin/Globulin Ratio 10/20/18 05:34 WBC RBC Hgb Hct MCV MCH MCHC RDW Plt Count Add Manual Diff Total Counted Seg Neuts % (Manual) Band Neutrophils % Lymphocytes % (Manual) Reactive Lymphs % (Man) Monocytes % (Manual) Eosinophils % (Manual) Basophils % (Manual) Metamyelocytes % Myelocytes % Promyelocytes % Blast Cells % Nucleated RBC % Seg Neutrophils # Man Band Neutrophils # Lymphocytes # (Manual) Abs React Lymphs (Man) Monocytes # (Manual) Eosinophils # (Manual) Basophils # (Manual) Metamyelocytes # Myelocytes # Promyelocytes # Blast Cells # WBC Morphology Hypersegmented Neuts Hyposegmented Neuts Hypogranular Neuts Smudge Cells Toxic Granulation Toxic Vacuolation Dohle Bodies Pelger-Huet Anomaly Giovanna Rods Platelet Estimate Clumped Platelets Plt Clumps, EDTA Large Platelets Giant Platelets Platelet Satelliting Plt Morphology Comment RBC Morphology Dimorphic RBCs Polychromasia Hypochromasia Poikilocytosis Anisocytosis Microcytosis Macrocytosis Spherocytes Pappenheimer Bodies Sickle Cells Target Cells Tear Drop Cells Ovalocytes Helmet Cells [place] Bodies [place] Dioni Cells Bite Cells Crenated Cell Elliptocytes Acanthocytes (Spur) Rouleaux Hemoglobin C Crystals Schistocytes Malaria parasites Kieran Bodies Hem Pathologist Commnt Sodium Potassium Chloride Carbon Dioxide Anion Gap BUN Creatinine Estimated GFR BUN/Creatinine Ratio Glucose POC Glucose 113 H Calcium Total Bilirubin AST ALT Alkaline Phosphatase Total Protein Albumin Albumin/Globulin Ratio Medications & Allergies - Medications Allergies/Adverse Reactions: Allergies No Known Allergies Allergy (Unverified 09/11/18 17:50) Home Medications: Home Medications Medication Instructions Recorded Confirmed Last Taken Type No Known Home Medications [No 10/02/18 10/02/18 Unknown History Reported Home Medications] Active Medications: Generic Name Dose Route Start Last Admin Trade Name Freq PRN Reason Stop Dose Admin Acetaminophen 650 mg 09/11/18 19:30 10/09/18 16:32 Tylenol PO 650 mg Q4H PRN Administration Pain MILD(1-3)/Fever >100.5/RIVERA Acetaminophen 650 mg 09/21/18 07:39 10/07/18 21:15 Tylenol [place] 650 mg Q4H PRN Administration Fever >101 Albuterol 2.5 mg 09/20/18 20:00 10/20/18 08:05 Proventil IH 2.5 mg Q6HRT GIA Administration Amiodarone HCl 200 mg 09/27/18 15:00 10/19/18 21:18 Cordarone PO 200 mg BID GIA Administration Lipase/Protease/Amylase 1 each 09/30/18 12:01 Pancreaze 10,500 Unit FEEDTUBE PRN PRN For Clogged Feeding Tube Atovaquone 750 mg 09/21/18 10:00 10/19/18 21:18 Mepron PO 750 mg BID GIA Administration Azithromycin 1,200 mg 10/18/18 10:00 10/18/18 10:35 Zithromax PO 1,200 mg Tu GIA Administration Emtricitabine 200 mg 10/13/18 10:00 10/17/18 09:47 Emtriva PO 200 mg Q96H GIA Administration Famotidine 20 mg 10/10/18 10:00 10/19/18 13:05 Pepcid PO 20 mg DAILY GIA Administration Fluconazole 200 mg 10/05/18 12:00 10/19/18 13:11 Diflucan PO 200 mg QDAY GIA Administration Folic Acid 1 mg 10/07/18 10:00 10/19/18 13:07 Folvite PO 1 mg QDAY GIA Administration Glycopyrrolate 2 mg 10/07/18 18:00 10/20/18 05:29 Robinul PO 2 mg Q6HR GIA Administration Heparin Sodium (Porcine) 5,000 unit 10/05/18 14:00 10/20/18 05:28 Heparin SUB-Q 5,000 unit Q8HR GIA Administration Hydrophilic Ointment 1 applic 09/21/18 01:46 09/22/18 03:46 Vaseline Lip Therapy TP 1 applic Q2HR PRN Administration Dry Lips Ganciclovir Sodium 150 mg/ 250 mls @ 100 mls/hr 10/12/18 10:00 10/19/18 13:07 Sodium Chloride IV 100 mls/hr MoWeFr GIA Administration Sodium Chloride 100 mls @ 999 mls/hr 10/17/18 10:39 Nacl 0.9% IV CHERYL PRN Hypotension Levetiracetam 750 mg 10/12/18 22:00 10/19/18 21:18 Keppra PO 750 mg BID GIA Administration Levothyroxine Sodium 25 mcg 09/19/18 06:00 10/20/18 05:29 Synthroid PO 25 mcg DAILY@0600 GIA Administration Metoprolol Tartrate 12.5 mg 10/10/18 13:00 10/19/18 21:18 Lopressor PO 12.5 mg BID GIA Administration Multi-Ingred Cream/Lotion/Oil/Oint 1 applic 09/21/18 01:46 Artificial Tears Ophth Oint OU Q4HR PRN Dry Eye(s) Ondansetron HCl 4 mg 09/11/18 19:30 Zofran IV Q8H PRN Nausea And Vomiting Scopolamine 1 each 09/18/18 18:00 10/18/18 17:18 Transderm-Scop TD 1 each Q3D GIA Administration Simple Syrup 15 ml 10/15/18 10:45 Simple Syrup FEEDTUBE PRN PRN Hypoglycemia Simple Syrup 30 ml 10/15/18 10:45 Simple Syrup FEEDTUBE PRN PRN Hypoglycemia Sodium Bicarbonate 325 mg 10/15/18 10:45 Sodium Bicarbonate FEEDTUBE PRN PRN For Clogged Feeding Tube Sodium Chloride 10 ml 09/11/18 22:00 10/19/18 21:20 Sodium Chloride Flush Syringe 10 Ml IV 10 ml BID GIA Administration Sodium Chloride 10 ml 09/11/18 19:30 Sodium Chloride Flush Syringe 10 Ml IV PRN PRN LINE FLUSH Tenofovir Disoproxil Fumarate 300 mg 10/13/18 10:00 10/17/18 09:46 Viread PO 300 mg Q96H GIA Administration
[2018-10-20] MEDS: KEPPRA PO SCH ×2 (09:55→21:49)
[2018-10-20] MEDS: PEPCID PO SCH (09:56)
[2018-10-20] MEDS: CORDARONE PO SCH ×2 (09:56→21:50)
[2018-10-20] MEDS: FOLVITE PO SCH (09:56)
[2018-10-20] MEDS: LOPRESSOR PO SCH ×2 (09:56→21:50)
[2018-10-20] MEDS: TIVICAY PO SCH (09:57)
[2018-10-20] MEDS: DIFLUCAN PO SCH (09:57)
[2018-10-20] MEDS: MEPRON PO SCH ×2 (09:57→21:49)
[2018-10-20] MEDS: SODIUM CHLORIDE FLUSH SYRINGE 10 ML IV SCH ×2 (09:57→23:13)
--- NOTE | 2018-10-20 11:36 | Progress Note ---
Assessment and Plan Assessment and plan: ARF - Patient's creatinine level is trending up - nephrology is following and he started on hemodialysis 10/16/18. Acute hypoxemic respiratory failure - Patient has pneumonia and altered mental status - Patient is intubated and on mechanical ventilation - Trach and PEG per surgery. Disseminated CMV viremia: -Treated with IV ganciclovir and currently he is on prophylaxis Toxic metabolic encephalopathy. 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 Of note, MRI did not show ventriculitis. A. fib with RVR. Converted to NSR. cont Amiodarone and metoprolol. Rate controlled Neurosyphilis: CSF VDRL positive, patient finished a course of IV penicillin 21 days Diarrhea. Resolved, etiology likely secondary to Giardia. Giardia antigen positive in stool. Completed a course of Flagyl. Oral candidiasis. Fluconazole HIV/AIDS. New Diagnosis. Started on HAART on 09/30, Tenofovir, Emtricitabine + Dolutegravir watch closely for IRIS continue atovaquone and azithromycin prophylaxis Neutropenia. 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 Also probably worse from ganciclovir. r/o disseminated MAC, thus far cultures negative. WBC count this morning was 0.5, progressively declining. Hematology saw him and continue granix. Prognosis poor. The high probability of a clinically significant, sudden or life threatening deterioration of the [neurological, respiratory and cardiac] system(s) required my full and direct attention, intervention and personal management. The aggregat e critical care time was [32] minutes. This time is in addition to time spent performing reported procedures but includes the following: [x] Data Review and interpretation [x] Patient assessment and monitoring of vital signs [x] Documentation [x] Medication orders and management History Interval history: Patient is 33 yo initially presented with diarrhea, found to have pneumonia, sepsis, HIV/AIDS(new diagnosis) with CD4 count of 4. He was started on abx for PJP. His mental status has worsened with confusion, lethargy. LP done . He was diagnosed with neurosyphilis. Started on Penicillin. Closest family is sister in [place], and dr. Baltazar spoke to her several times about diagnosis but did not tell her about HIV/AIDS because of patient confidentiality. The patient decompensated on 09/20/18 with acute hypoxemic respiratory failure and worsening toxic metabolic encephalopathy requiring transfer to ICU and intubation. He now remains on mechanical ventilation. The patient was also noted to develop SVT requiring amiodarone drip as well as heparin drip. Severe Sepsis. Etiology secondary to bacterial pneumonia +/- gastroenteritis with newly diagnosed with HIV. Fevers have re-emerged. Repeat blood cx per ID. the patient was initiated on hemodialysis 10/16/18 for renal failure secondary to ATN from severe sepsis. Hospitalist Physical - Constitutional Vitals: Temp Pulse Resp BP Pulse Ox 98.1 F 99 H 23 104/61 100 10/20/18 08:00 10/20/18 09:56 10/20/18 09:00 10/20/18 09:56 10/20/18 08:00 General appearance: Present: mild distress, other (orally intubated, minimal response--right side spontaneous movement) - EENT Eyes: Present: PERRL, EOM intact ENT: hearing intact, clear oral mucosa, dentition normal - Neck Neck: Present: supple, normal ROM - Respiratory Respiratory effort: normal Respiratory: bilateral: CTA - Cardiovascular Rhythm: regular Heart Sounds: Present: S1 & S2. Absent: gallop, rub - Extremities Extremities: no ischemia, No edema, Full ROM - Abdominal General gastrointestinal: soft, non-tender, non-distended, normal bowel sounds - Integumentary Integumentary: Present: clear, warm, dry - Neurologic Neurologic: CNII-XII intact, moves all extremities Results - Labs CBC & Chem 7: 10/19/18 14:54 10/19/18 06:15 Labs: Laboratory Last Values WBC 0.7 K/mm3 (4.5-11.0) L* 10/19/18 14:54 RBC 2.77 M/mm3 (3.65-5.03) L 10/19/18 14:54 Hgb 8.3 gm/dl (11.8-15.2) L 10/19/18 14:54 Hct 24.6 % (35.5-45.6) L 10/19/18 14:54 MCV 89 fl (84-94) 10/19/18 14:54 MCH 30 pg (28-32) 10/19/18 14:54 MCHC 34 % (32-34) 10/19/18 14:54 RDW 19.2 % (13.2-15.2) H 10/19/18 14:54 Plt Count 105 K/mm3 (140-440) L 10/19/18 14:54 Stephenson % (Auto) Radio Performer 09/29/18 05:00 Eos % (Auto) Radio Performer 10/13/18 04:05 Baso % (Auto) Radio Performer 10/13/18 04:05 Add Manual Diff Complete 10/19/18 14:54 Total Counted 50 10/19/18 14:54 Seg Neutrophils % Radio Performer 10/16/18 07:50 Seg Neuts % (Manual) 46.0 % (40.0-70.0) 10/19/18 14:54 Band Neutrophils % 2.0 % 10/19/18 14:54 Lymphocytes % (Manual) 32.0 % (13.4-35.0) 10/19/18 14:54 Reactive Lymphs % (Man) 0 % 10/19/18 14:54 Monocytes % (Manual) 16.0 % (0.0-7.3) H 10/19/18 14:54 Eosinophils % (Manual) 2.0 % (0.0-4.3) 10/19/18 14:54 Basophils % (Manual) 2.0 % (0.0-1.8) H 10/19/18 14:54 Metamyelocytes % 0 % 10/19/18 14:54 Myelocytes % 0 % 10/19/18 14:54 Promyelocytes % 0 % 10/19/18 14:54 Blast Cells % 0 % 10/19/18 14:54 Nucleated RBC % Not Reportable 10/19/18 14:54 Seg Neutrophils # Man 0.3 K/mm3 (1.8-7.7) L 10/19/18 14:54 Band Neutrophils # 0.0 K/mm3 10/19/18 14:54 Abs Lymphs (Manual) 309 cells/uL (850-3900) L 09/13/18 12:29 Lymphocytes # (Manual) 0.2 K/mm3 (1.2-5.4) L 10/19/18 14:54 Abs React Lymphs (Man) 0.0 K/mm3 10/19/18 14:54 Monocytes # (Manual) 0.1 K/mm3 (0.0-0.8) 10/19/18 14:54 Eosinophils # (Manual) 0.0 K/mm3 (0.0-0.4) 10/19/18 14:54 Basophils # (Manual) 0.0 K/mm3 (0.0-0.1) 10/19/18 14:54 Metamyelocytes # 0.0 K/mm3 10/19/18 14:54 Myelocytes # 0.0 K/mm3 10/19/18 14:54 Promyelocytes # 0.0 K/mm3 10/19/18 14:54 Blast Cells # 0.0 K/mm3 10/19/18 14:54 WBC Morphology Not Reportable 10/19/18 14:54 Hypersegmented Neuts Not Reportable 10/19/18 14:54 Hyposegmented Neuts Not Reportable 10/19/18 14:54 Hypogranular Neuts Not Reportable 10/19/18 14:54 Smudge Cells Not Reportable 10/19/18 14:54 Toxic Granulation Not Reportable 10/19/18 14:54 Toxic Vacuolation Not Reportable 10/19/18 14:54 Dohle Bodies Not Reportable 10/19/18 14:54 Pelger-Huet Anomaly Not Reportable 10/19/18 14:54 Giovanna Rods Not Reportable 10/19/18 14:54 Platelet Estimate Consistent w auto 10/19/18 14:54 Clumped Platelets Not Reportable 10/19/18 14:54 Plt Clumps, EDTA Not Reportable 10/19/18 14:54 Large Platelets Not Reportable 10/19/18 14:54 Giant Platelets Not Reportable 10/19/18 14:54 Platelet Satelliting Not Reportable 10/19/18 14:54 Plt Morphology Comment Not Reportable 10/19/18 14:54 RBC Morphology Not Reportable 10/19/18 14:54 Dimorphic RBCs Not Reportable 10/19/18 14:54 Polychromasia Not Reportable 10/19/18 14:54 Hypochromasia Not Reportable 10/19/18 14:54 Poikilocytosis Not Reportable 10/19/18 14:54 Anisocytosis 1+ 10/19/18 14:54 Microcytosis Not Reportable 10/19/18 14:54 Macrocytosis Not Reportable 10/19/18 14:54 Spherocytes Not Reportable 10/19/18 14:54 Pappenheimer Bodies Not Reportable 10/19/18 14:54 Sickle Cells Not Reportable 10/19/18 14:54 Target Cells Not Reportable 10/19/18 14:54 Tear Drop Cells Not Reportable 10/19/18 14:54 Ovalocytes Not Reportable 10/19/18 14:54 Stomatocytes 1+ 09/29/18 05:00 Helmet Cells Not Reportable 10/19/18 14:54 [place] Bodies Not Reportable 10/19/18 14:54 [place] Rings Not Reportable 10/19/18 14:54 Dioni Cells Not Reportable 10/19/18 14:54 Bite Cells Not Reportable 10/19/18 14:54 Crenated Cell Not Reportable 10/19/18 14:54 Elliptocytes Not Reportable 10/19/18 14:54 Acanthocytes (Spur) Not Reportable 10/19/18 14:54 Rouleaux Not Reportable 10/19/18 14:54 Hemoglobin C Crystals Not Reportable 10/19/18 14:54 Schistocytes Not Reportable 10/19/18 14:54 Malaria parasites Not Reportable 10/19/18 14:54 Kieran Bodies Not Reportable 10/19/18 14:54 Hem Pathologist Commnt No 10/19/18 14:54 PT 16.0 Sec. (12.2-14.9) H 10/10/18 08:09 INR 1.20 (0.87-1.13) H 10/10/18 08:09 APTT 40.9 Sec. (24.2-36.6) H 09/21/18 15:00 Heparin Anti-Xa Level 0.35 U.I./ml (0.3-0.7) 10/05/18 10:19 POC ABG pH 7.336 (7.35-7.45) L 10/12/18 13:30 POC ABG pCO2 31.5 (35-45) L 10/12/18 13:30 POC ABG pO2 122 (80-105) H 10/12/18 13:30 POC ABG HCO3 16.8 10/12/18 13:30 POC ABG Total CO2 18 10/12/18 13:30 POC ABG O2 Sat 99 10/12/18 13:30 POC ABG Base Excess -9 10/12/18 13:30 FiO2 25 % 10/12/18 13:30 Sodium 142 mmol/L (137-145) 10/19/18 06:15 Potassium 2.9 mmol/L (3.6-5.0) L* 10/19/18 06:15 Chloride 100.6 mmol/L (98-107) 10/19/18 06:15 Carbon Dioxide 19 mmol/L (22-30) L 10/19/18 06:15 Anion Gap 25 mmol/L 10/19/18 06:15 BUN 107 mg/dL (9-20) H 10/19/18 06:15 Creatinine 5.9 mg/dL (0.8-1.5) H 10/19/18 06:15 Estimated GFR 13 ml/min 10/19/18 06:15 BUN/Creatinine Ratio 18 % 10/19/18 06:15 Glucose 96 mg/dL (75-100) 10/19/18 06:15 POC Glucose 113 (70-105) H 10/20/18 05:34 Lactic Acid 0.90 mmol/L (0.7-2.0) 09/11/18 20:17 Calcium 7.9 mg/dL (8.4-10.2) L 10/19/18 06:15 Phosphorus 8.50 mg/dL (2.5-4.5) H 10/14/18 09:40 Magnesium 2.10 mg/dL (1.7-2.3) 10/14/18 09:40 Iron 35 ug/dL (49-181) L 10/06/18 09:40 TIBC 157 mcg/dL (250-450) L 10/06/18 09:40 Ferritin 1126.0 ng/mL (13.0-400.0) H 10/06/18 09:40 Total Bilirubin 0.30 mg/dL (0.1-1.2) 10/19/18 06:15 Direct Bilirubin < 0.2 mg/dL (0-0.2) 09/13/18 07:31 AST 54 units/L (5-40) H 10/19/18 06:15 ALT 36 units/L (7-56) 10/19/18 06:15 Alkaline Phosphatase 57 units/L (35-129) 10/19/18 06:15 Ammonia 27.0 umol/L (25-60) 10/03/18 13:23 Total Creatine Kinase 113 units/L (55-170) 10/11/18 05:20 CK-MB (CK-2) 2.6 ng/mL (0.0-4.0) 10/11/18 05:20 CK-MB (CK-2) Rel Index 0.5 (0-4) 09/21/18 04:25 NT-Pro-B Natriuret Pep 145.9 pg/mL (0-450) 09/18/18 16:07 Total Protein 5.7 g/dL (6.3-8.2) L 10/19/18 06:15 Albumin 2.5 g/dL (3.9-5) L 10/19/18 06:15 Albumin/Globulin Ratio 0.8 % 10/19/18 06:15 Vitamin B12 934.5 pg/mL (211-911) H 09/16/18 11:41 Folate 6.71 ng/mL (7.3-26.0) L 10/06/18 09:40 TSH 5.190 mlU/mL (0.270-4.200) H 09/18/18 12:46 Free T4 0.75 ng/dL (0.76-1.46) L 09/18/18 12:46 Urine Color Yellow (Yellow) 10/11/18 05:40 Urine Turbidity Slightly-cloudy (Clear) 10/11/18 05:40 Urine pH 5.0 (5.0-7.0) 10/11/18 05:40 Ur Specific [place] 1.012 (1.003-1.030) 10/11/18 05:40 Urine Protein 30 mg/dl mg/dL (Negative) 10/11/18 05:40 Urine Glucose (UA) Neg mg/dL (Negative) 10/11/18 05:40 Urine Ketones Neg mg/dL (Negative) 10/11/18 05:40 Urine Blood Mod (Negative) 10/11/18 05:40 Urine Nitrite Neg (Negative) 10/11/18 05:40 Urine Bilirubin Neg (Negative) 10/11/18 05:40 Urine Urobilinogen < 2.0 mg/dL (<2.0) 10/11/18 05:40 Ur Leukocyte Esterase Neg (Negative) 10/11/18 05:40 Urine WBC (Auto) 8.0 /HPF (0.0-6.0) H 10/11/18 05:40 Urine RBC (Auto) 45.0 /HPF (0.0-6.0) 10/11/18 05:40 U Epithel Cells (Auto) 2.0 /HPF (0-13.0) 10/11/18 05:40 Urine Bacteria (Auto) 1+ /HPF (Negative) 10/11/18 05:40 Urine Mucus Few /HPF 10/11/18 05:40 Urine Creatinine 57.5 mg/dL (0.1-20.0) H 10/11/18 05:40 Protein/Creatinin Ratio 0.77 10/11/18 05:40 Urine Sodium 70 mmol/L 10/11/18 05:40 Urine Chloride 35.1 mmolL (110-250) L 10/11/18 05:40 Urine Total Protein 44 mg/dL (5-11.8) H 10/11/18 05:40 CSF Appearance Bloody 10/10/18 Unknown CSF Color Red 10/10/18 Unknown CSF WBC 10 /mm3 (1-10) 10/10/18 Unknown CSF RBC 29934 /mm3 (0-0) 10/10/18 Unknown CSF Seg Neutrophils 14.0 % (0-6) 10/10/18 Unknown CSF Lymphocytes % 44.0 % (40-80) 10/10/18 Unknown CSF Reactive Lymphs 0 % 10/10/18 Unknown CSF Monocytes % 38.0 % (15-45) 10/10/18 Unknown CSF Eosinophils % 4.0 % 10/10/18 Unknown CSF Basophils 0 % 10/10/18 Unknown CSF Pathologist Review C 10/10/18 Unknown CSF Glucose 47 mg/dL 10/10/18 Unknown CSF Total Protein 84 mg/dL 10/10/18 Unknown CSF VDRL Reactive 1:2 (Nonreactive) H 10/10/18 Unknown Vancomycin Trough 14.3 ug/mL (5.0-20.0) 09/25/18 14:45 Random Vancomycin 10.7 ug/mL (0-40.0) 10/12/18 03:30 Urine Opiates Screen Presumptive negative 09/17/18 15:52 Urine Methadone Screen Presumptive negative 09/17/18 15:52 Ur Barbiturates Screen Presumptive negative 09/17/18 15:52 Ur Phencyclidine Scrn Presumptive negative 09/17/18 15:52 Ur Amphetamines Screen Presumptive negative 09/17/18 15:52 U Benzodiazepines Scrn Presumptive negative 09/17/18 15:52 Urine Cocaine Screen Presumptive negative 09/17/18 15:52 U Marijuana (THC) Screen Presumptive negative 09/17/18 15:52 Drugs of Abuse Note Disclamer 09/17/18 15:52 Proteinase 3 (PR3) Ab <1.0 AI (<1.0) 10/12/18 09:46 Myeloperoxidase Ab <1.0 AI (<1.0) 10/12/18 09:46 Complement C3 184 mg/dL (82-185) 10/12/18 09:46 Complement C4 45 mg/dL (15-53) 10/12/18 09:46 Lymph Enumerat CD4/CD8 0.01 (0.86-5.00) L 09/13/18 12:29 % CD3 Cells 71 % (57-85) 09/13/18 12:29 Absolute CD3 Count 220 cells/uL (840-3060) L 09/13/18 12:29 % CD4 Cells 1 % (30-61) L 09/13/18 12:29 Absolute CD4 Count 4 cells/uL (490-1740) L 09/13/18 12:29 % CD8 Cells 70 % (12-42) H 09/13/18 12:29 Absolute CD8 Count 216 cells/uL (180-1170) 09/13/18 12:29 % CD19 Cells 17 % (6-29) 09/13/18 12:29 Absolute CD19 Count 54 cells/uL (110-660) L 09/13/18 12:29 RPR Titer 1:16 09/13/18 12:29 RPR Reactive (Nonreactive) 09/13/18 12:29 T.pallidum Ab (FTA-ABS) Reactive (Nonreactive) H 09/14/18 16:34 C. difficile Toxin A&B Negative (Negative) 09/12/18 05:30 CMV DNA PCR log mass spectroscopist/mL See scanned results 10/03/18 06:12 Hepatitis A IgM Ab Non-reactive (NonReactive) 09/13/18 12:29 Hep Bs Antigen Non-reactive (Negative) 09/13/18 12:29 Hep B Core IgM Ab Non-reactive (NonReactive) 09/13/18 12:29 Hepatitis C Antibody Non-reactive (NonReactive) 09/13/18 12:29 HIV-1 Antibody See scanned result 09/11/18 19:14 HIV-1 RNA PCR copies/ml 11555 Copies/mL H 09/13/18 12:29 HIV-1 RNA (PCR) log 4.71 Log cps/mL H 09/13/18 12:29 HIV-2 Ab (Immunoblot) See scanned result 09/11/18 19:14 HIV 1&2 Antibody Rapid Reactive (Non React) 09/11/18 19:14 HIV P24 Antigen Non react (Non React) 09/11/18 19:14 Influenza A (Rapid) Negative (Negative) 09/13/18 16:05 Influenza A (RT-PCR) Negative (Negative) 09/13/18 16:05 Influenza B (Rapid) Negative (Negative) 09/13/18 16:05 Influenza B (RT-PCR) Negative (Negative) 09/13/18 16:05 Toxoplasma IgG Ab <7.20 IU/mL (<7.20) 09/16/18 12:09 Miscellaneous Test Flexitest 1 H 10/10/18 Unknown Nutrition/Malnutrition Assess - Dietary Evaluation Nutrition/Malnutrition Findings: Nutrition Notes Start: 09/12/18 17:45 Freq: Status: Active Protocol: Document 10/18/18 12:54 (Rec: 10/18/18 13:02 [email or web address]) Co-Sign 10/18/18 12:54 LP Nutrition Notes Initial or Follow up Reassessment Current Diagnosis Acute Kidney Injury,Sepsis, Respiratory Failure Other Pertinent Diagnosis On HD, HIV, bilat pneu, gastroenteritis, encephalopathy Current Diet Vital AF at 60 ml/hr Labs/Tests No labs since 3/3 Pertinent Medications Lopressor Height 6 ft Weight 122.7 kg [place] Body Weight (kg) 80.90 BMI 36.6 Subjective/Other Information Pt. f/u for TF change and tolerance. Observed Vital AF infusing at goal rate of 60ml/ hr. Per RN, night RN shut off TF due to residuals of 300 ml. However, current RN has not observed any residuals since TF restart. Percent of energy/protein needs met: 94%/67% Burn Absent Trauma Absent #2 Nutrition Diagnosis Inadequate oral intake Diagnosis Progress(for reassessment Continues documentation) #1 Nutrition Diagnosis Malnutrition Diagnosis Progress(for reassessment Continues documentation) Is patient on ventilator? Yes Is Patient Ambulatory and/or Out of Bed No REE-(Geary-St. Jeor-confined to bed) 2653.692 Kcal/Kg value to use for calculation 15 Approximate Energy Requirements Using 1841 kcal/Kg Calculation Used for Recommendations Kcal/kg Additional Notes Pro needs: 162 g/day (2g/kg IBW) Fluid: 1 ml/kcal Nutrition Intervention Change Diet Order: Continue TF Nutrition Support: Vital AF 1.2 at 60ml/hr Flush with 100ml q4h Kcal 1,728 Protein (gm) 108 Fluid (mL) 1,203 Goal #1 Continue to meet at least 80% of energy and 65% of protein needs due to renal function. Anticipated Discharge Needs: Unable to determine at this time Follow-Up By: 10/20/18 Additional Comments F/u for stable TF, renal labs
--- NOTE | 2018-10-20 12:54 | Progress Note ---
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) Elevated LFTs Neutropenia Thrombocytopenia (I had an extended discussion with his Sister over the phone and explained the concept of substituted judgement to her; she wants some time to make a decision) - get ABG - get CXR - continue daily SBT's as tolerated - for tracheostomy tentatively on 10/25/18 - now on dialysis and tolerating well so far - continue therapy for CMV encephalitis, neuro syphillis as well as ART - appreciate ID input - continue Robinul & scopolamine for secretion control (secretions improved) - continue to hold all other sedating medications - continue supplemental oxygen to keep sats > 90% - continue bronchodilators with pulmonary hygiene per RT - Continue empiric and targeted anti-infective's per ID recs antibiotics per ID - continue set rate at 12/min - daily SAT's if sedation resumed - continue IV heparin for NSTEMI - IV amiodarone stopped - continue fluconazole for candidiasis - watch for drug-drug interactions - continue enteral nutrition as tolerated - when resumed target sedation for RASS 0 to -1 - PT/OT/ROM exercises as tolerated - mobility protocol for pressure ulcer prophylaxis - continue GI & VTE prophylaxis - continue other care per attending / other consultants ...... re-evaluate in am & prn ..... care plan discussed with relative who will be here for his trach/peg on and all pertinent question were answered as best i could The high probability of a clinically significant, sudden or life threatening deterioration of the [cardiac, respiratory and neurologic] system(s) required my full and direct attention, intervention and personal management. The aggregate critical care time was [32] minutes. This time is in addition to time spent performing reported procedures but includes the following: [x] Data Review and interpretation [x] Patient assessment and monitoring of vital signs [x] Documentation [x] Medication orders and management Subjective Date of service: 10/20/18 Principal diagnosis: Severe sepsis; Ac hypoxemic Resp failure; [place]. 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 Objective Vital Signs - 12hr 10/20/18 10/20/18 10/20/18 01:00 01:27 01:29 Temperature Pulse Rate 92 H 92 H Pulse Rate [ Anterior Bilateral Throughout] Pulse Rate [ 92 H Bases] Pulse Rate [ From Monitor] Pulse Rate [ Throughout] Respiratory 19 Rate Respiratory Rate [Anterior Bilateral Throughout] Respiratory 16 Rate [Bases] Respiratory Rate [ Throughout] Blood Pressure 127/73 127/70 O2 Sat by Pulse 98 100 Oximetry 10/20/18 10/20/18 10/20/18 01:41 02:00 03:00 Temperature Pulse Rate 91 H 96 H Pulse Rate [ Anterior Bilateral Throughout] Pulse Rate [ 91 H Bases] Pulse Rate [ From Monitor] Pulse Rate [ Throughout] Respiratory 15 20 Rate Respiratory Rate [Anterior Bilateral Throughout] Respiratory 16 Rate [Bases] Respiratory Rate [ Throughout] Blood Pressure 129/75 130/79 O2 Sat by Pulse 96 100 Oximetry 10/20/18 10/20/18 10/20/18 04:00 05:00 05:01 Temperature 98.9 F Pulse Rate 89 96 H 94 H Pulse Rate [ Anterior Bilateral Throughout] Pulse Rate [ Bases] Pulse Rate [ 90 From Monitor] Pulse Rate [ Throughout] Respiratory 16 20 Rate Respiratory Rate [Anterior Bilateral Throughout] Respiratory Rate [Bases] Respiratory Rate [ Throughout] Blood Pressure 127/68 116/69 137/86 O2 Sat by Pulse 100 100 100 Oximetry 10/20/18 10/20/18 10/20/18 06:00 07:00 07:54 Temperature Pulse Rate 90 91 H 87 Pulse Rate [ 90 Anterior Bilateral Throughout] Pulse Rate [ Bases] Pulse Rate [ From Monitor] Pulse Rate [ 87 Throughout] Respiratory 16 18 Rate Respiratory 16 Rate [Anterior Bilateral Throughout] Respiratory Rate [Bases] Respiratory 15 Rate [ Throughout] Blood Pressure 127/80 124/78 131/82 O2 Sat by Pulse 100 100 Oximetry 10/20/18 10/20/18 10/20/18 08:00 09:00 09:56 Temperature 98.1 F Pulse Rate 87 107 H 99 H Pulse Rate [ Anterior Bilateral Throughout] Pulse Rate [ Bases] Pulse Rate [ 87 From Monitor] Pulse Rate [ Throughout] Respiratory 18 23 Rate Respiratory Rate [Anterior Bilateral Throughout] Respiratory Rate [Bases] Respiratory Rate [ Throughout] Blood Pressure 135/86 153/76 104/61 O2 Sat by Pulse 100 Oximetry 10/20/18 10/20/18 10/20/18 10:00 11:00 12:00 Temperature Pulse Rate 101 H 91 H 91 H Pulse Rate [ Anterior Bilateral Throughout] Pulse Rate [ Bases] Pulse Rate [ From Monitor] Pulse Rate [ Throughout] Respiratory 22 18 15 Rate Respiratory Rate [Anterior Bilateral Throughout] Respiratory Rate [Bases] Respiratory Rate [ Throughout] Blood Pressure 128/76 124/70 133/79 O2 Sat by Pulse 99 100 100 Oximetry 10/20/18 12:17 Temperature Pulse Rate 89 Pulse Rate [ Anterior Bilateral Throughout] Pulse Rate [ Bases] Pulse Rate [ From Monitor] Pulse Rate [ Throughout] Respiratory Rate Respiratory Rate [Anterior Bilateral Throughout] Respiratory Rate [Bases] Respiratory Rate [ Throughout] Blood Pressure 121/85 O2 Sat by Pulse 100 Oximetry Constitutional: lethargic, agitated, appears uncomfortable, other (young looking AAM, normocephalic with mildly increased respiratory effort at rest) Eyes: non-icteric ENT: oropharynx moist, other (ETT 25 cm NIKA) Neck: supple, no lymphadenopathy, other (no thyromegaly) Effort: normal Ascultation: Bilateral: rhonchi (scant) Percussion: Bilateral: not dull Cardiovascular: regular rate and rhythm, other (S1,S2, no murmurs, gallps or rubs) Gastrointestinal: normoactive bowel sounds, soft, non-tender, non-distended Integumentary: rash Extremities: no cyanosis, pulses normal, no ischemia or petechiae, edema Neurologic: non-focal exam (grossly), pupils equal and round, other (Left sided hemiparesis) Psychiatric: other (unable to assess) CBC and BMP: 10/19/18 14:54 10/19/18 06:15 ABG, PT/INR, D-dimer: ABG POC ABG pH 7.399 (7.35-7.45) 10/20/18 12:17 POC ABG pCO2 33.3 (35-45) L 10/20/18 12:17 POC ABG pO2 107 (80-105) H 10/20/18 12:17 POC ABG HCO3 20.6 10/20/18 12:17 POC ABG Total CO2 22 10/20/18 12:17 POC ABG O2 Sat 98 10/20/18 12:17 PT/INR, D-dimer PT 16.0 Sec. (12.2-14.9) H 10/10/18 08:09 INR 1.20 (0.87-1.13) H 10/10/18 08:09 Abnormal lab findings: Abnormal Labs 09/11/18 09/11/18 09/11/18 18:00 18:00 18:00 WBC 1.9 L* RBC Hgb Hct RDW Plt Count 130 L Seg Neuts % (Manual) Lymphocytes % (Manual) Monocytes % (Manual) 16.0 H Eosinophils % (Manual) Basophils % (Manual) Nucleated RBC % Seg Neutrophils # Man 0.9 L Abs Lymphs (Manual) Lymphocytes # (Manual) 0.5 L Basophils # (Manual) PT INR APTT Heparin Anti-Xa Level POC ABG pH POC ABG pCO2 POC ABG pO2 Sodium 131 L Potassium Chloride Carbon Dioxide 17 L BUN 21 H Creatinine Glucose 126 H POC Glucose Lactic Acid 2.60 H* Calcium 8.1 L Phosphorus Magnesium Iron TIBC Ferritin AST 123 H ALT 115 H Total Creatine Kinase Total Protein Albumin 3.0 L Vitamin B12 Folate TSH Free T4 Urine WBC (Auto) Urine Creatinine Urine Chloride Urine Total Protein CSF VDRL Lymph Enumerat CD4/CD8 Absolute CD3 Count % CD4 Cells Absolute CD4 Count % CD8 Cells Absolute CD19 Count T.pallidum Ab (FTA-ABS) HIV-1 RNA PCR copies/ml HIV-1 RNA (PCR) log Miscellaneous Test 09/11/18 09/13/18 09/13/18 19:01 04:28 07:31 WBC 2.0 L RBC Hgb Hct RDW Plt Count 116 L Seg Neuts % (Manual) Lymphocytes % (Manual) Monocytes % (Manual) 8.0 H Eosinophils % (Manual) Basophils % (Manual) Nucleated RBC % Seg Neutrophils # Man 1.0 L Abs Lymphs (Manual) Lymphocytes # (Manual) 0.5 L Basophils # (Manual) PT INR APTT Heparin Anti-Xa Level POC ABG pH POC ABG pCO2 POC ABG pO2 Sodium Potassium Chloride 110.4 H Carbon Dioxide 19 L BUN Creatinine Glucose POC Glucose Lactic Acid 3.70 H* Calcium 7.9 L Phosphorus Magnesium Iron TIBC Ferritin AST ALT Total Creatine Kinase Total Protein Albumin Vitamin B12 Folate TSH Free T4 Urine WBC (Auto) Urine Creatinine Urine Chloride Urine Total Protein CSF VDRL Lymph Enumerat CD4/CD8 Absolute CD3 Count % CD4 Cells Absolute CD4 Count % CD8 Cells Absolute CD19 Count T.pallidum Ab (FTA-ABS) HIV-1 RNA PCR copies/ml HIV-1 RNA (PCR) log Miscellaneous Test 09/13/18 09/13/18 09/13/18 07:31 12:29 12:29 WBC RBC Hgb Hct RDW Plt Count Seg Neuts % (Manual) Lymphocytes % (Manual) Monocytes % (Manual) Eosinophils % (Manual) Basophils % (Manual) Nucleated RBC % Seg Neutrophils # Man Abs Lymphs (Manual) 309 L Lymphocytes # (Manual) Basophils # (Manual) PT INR APTT Heparin Anti-Xa Level POC ABG pH POC ABG pCO2 POC ABG pO2 Sodium Potassium Chloride Carbon Dioxide BUN Creatinine Glucose POC Glucose Lactic Acid Calcium Phosphorus Magnesium Iron TIBC Ferritin AST 70 H ALT 68 H Total Creatine Kinase Total Protein Albumin 2.5 L Vitamin B12 Folate TSH Free T4 Urine WBC (Auto) Urine Creatinine Urine Chloride Urine Total Protein CSF VDRL Lymph Enumerat CD4/CD8 0.01 L Absolute CD3 Count 220 L % CD4 Cells 1 L Absolute CD4 Count 4 L % CD8 Cells 70 H Absolute CD19 Count 54 L T.pallidum Ab (FTA-ABS) HIV-1 RNA PCR copies/ml 80792 H HIV-1 RNA (PCR) log 4.71 H Miscellaneous Test 09/13/18 09/14/18 09/14/18 12:29 07:17 16:34 WBC RBC Hgb Hct RDW Plt Count Seg Neuts % (Manual) Lymphocytes % (Manual) Monocytes % (Manual) Eosinophils % (Manual) Basophils % (Manual) Nucleated RBC % Seg Neutrophils # Man Abs Lymphs (Manual) Lymphocytes # (Manual) Basophils # (Manual) PT INR APTT Heparin Anti-Xa Level POC ABG pH POC ABG pCO2 POC ABG pO2 Sodium Potassium 3.4 L Chloride Carbon Dioxide 18 L BUN Creatinine Glucose 104 H POC Glucose Lactic Acid Calcium 7.6 L Phosphorus Magnesium Iron TIBC Ferritin AST 49 H ALT Total Creatine Kinase Total Protein Albumin 2.5 L Vitamin B12 Folate TSH Free T4 Urine WBC (Auto) Urine Creatinine Urine Chloride Urine Total Protein CSF VDRL Lymph Enumerat CD4/CD8 Absolute CD3 Count % CD4 Cells Absolute CD4 Count % CD8 Cells Absolute CD19 Count T.pallidum Ab (FTA-ABS) Reactive H HIV-1 RNA PCR copies/ml HIV-1 RNA (PCR) log Miscellaneous Test Flexitest 1 H 09/15/18 09/15/18 09/15/18 05:05 05:05 Unknown WBC 1.6 L* RBC Hgb 10.4 L Hct 31.1 L D RDW Plt Count 113 L Seg Neuts % (Manual) Lymphocytes % (Manual) Monocytes % (Manual) Eosinophils % (Manual) Basophils % (Manual) Nucleated RBC % Seg Neutrophils # Man Abs Lymphs (Manual) Lymphocytes # (Manual) Basophils # (Manual) PT INR APTT Heparin Anti-Xa Level POC ABG pH POC ABG pCO2 POC ABG pO2 Sodium Potassium Chloride 107.9 H Carbon Dioxide 18 L BUN 6 L Creatinine Glucose POC Glucose Lactic Acid Calcium 7.4 L Phosphorus Magnesium Iron TIBC Ferritin AST ALT Total Creatine Kinase Total Protein Albumin Vitamin B12 Folate TSH Free T4 Urine WBC (Auto) Urine Creatinine Urine Chloride Urine Total Protein CSF VDRL Reactive 1:8 H Lymph Enumerat CD4/CD8 Absolute CD3 Count % CD4 Cells Absolute CD4 Count % CD8 Cells Absolute CD19 Count T.pallidum Ab (FTA-ABS) HIV-1 RNA PCR copies/ml HIV-1 RNA (PCR) log Miscellaneous Test 09/16/18 09/16/18 09/16/18 06:55 11:41 11:41 WBC 2.8 L RBC Hgb 10.9 L Hct 33.5 L RDW Plt Count 135 L Seg Neuts % (Manual) Lymphocytes % (Manual) Monocytes % (Manual) Eosinophils % (Manual) Basophils % (Manual) Nucleated RBC % Seg Neutrophils # Man Abs Lymphs (Manual) Lymphocytes # (Manual) Basophils # (Manual) PT INR APTT Heparin Anti-Xa Level POC ABG pH POC ABG pCO2 POC ABG pO2 Sodium Potassium Chloride Carbon Dioxide BUN Creatinine Glucose POC Glucose Lactic Acid Calcium Phosphorus Magnesium Iron TIBC Ferritin AST ALT Total Creatine Kinase Total Protein Albumin Vitamin B12 Folate TSH 4.210 H Free T4 0.72 L Urine WBC (Auto) Urine Creatinine Urine Chloride Urine Total Protein CSF VDRL Lymph Enumerat CD4/CD8 Absolute CD3 Count % CD4 Cells Absolute CD4 Count % CD8 Cells Absolute CD19 Count T.pallidum Ab (FTA-ABS) HIV-1 RNA PCR copies/ml HIV-1 RNA (PCR) log Miscellaneous Test 09/16/18 09/16/18 09/17/18 11:41 15:43 05:13 WBC 2.0 L RBC Hgb 10.9 L Hct 32.7 L RDW Plt Count Seg Neuts % (Manual) Lymphocytes % (Manual) Monocytes % (Manual) Eosinophils % (Manual) Basophils % (Manual) Nucleated RBC % Seg Neutrophils # Man Abs Lymphs (Manual) Lymphocytes # (Manual) Basophils # (Manual) PT INR APTT Heparin Anti-Xa Level POC ABG pH POC ABG pCO2 29.3 L POC ABG pO2 70 L Sodium Potassium Chloride Carbon Dioxide BUN Creatinine Glucose POC Glucose Lactic Acid Calcium Phosphorus Magnesium Iron TIBC Ferritin AST ALT Total Creatine Kinase Total Protein Albumin Vitamin B12 934.5 H Folate TSH Free T4 Urine WBC (Auto) Urine Creatinine Urine Chloride Urine Total Protein CSF VDRL Lymph Enumerat CD4/CD8 Absolute CD3 Count % CD4 Cells Absolute CD4 Count % CD8 Cells Absolute CD19 Count T.pallidum Ab (FTA-ABS) HIV-1 RNA PCR copies/ml HIV-1 RNA (PCR) log Miscellaneous Test 09/17/18 09/17/18 09/18/18 05:13 21:57 12:46 WBC RBC Hgb Hct RDW Plt Count Seg Neuts % (Manual) Lymphocytes % (Manual) Monocytes % (Manual) Eosinophils % (Manual) Basophils % (Manual) Nucleated RBC % Seg Neutrophils # Man Abs Lymphs (Manual) Lymphocytes # (Manual) Basophils # (Manual) PT INR APTT Heparin Anti-Xa Level POC ABG pH POC ABG pCO2 POC ABG pO2 Sodium Potassium Chloride 107.2 H Carbon Dioxide 21 L BUN 3 L Creatinine 0.7 L Glucose POC Glucose 108 H Lactic Acid Calcium 7.9 L Phosphorus Magnesium Iron TIBC Ferritin AST ALT Total Creatine Kinase Total Protein 6.1 L Albumin 2.6 L Vitamin B12 Folate TSH Free T4 0.75 L Urine WBC (Auto) Urine Creatinine Urine Chloride Urine Total Protein CSF VDRL Lymph Enumerat CD4/CD8 Absolute CD3 Count % CD4 Cells Absolute CD4 Count % CD8 Cells Absolute CD19 Count T.pallidum Ab (FTA-ABS) HIV-1 RNA PCR copies/ml HIV-1 RNA (PCR) log Miscellaneous Test 09/18/18 09/19/18 09/19/18 12:46 04:57 04:57 WBC 2.1 L RBC Hgb 11.4 L Hct 34.2 L RDW Plt Count Seg Neuts % (Manual) Lymphocytes % (Manual) Monocytes % (Manual) Eosinophils % (Manual) Basophils % (Manual) Nucleated RBC % Seg Neutrophils # Man Abs Lymphs (Manual) Lymphocytes # (Manual) Basophils # (Manual) PT INR APTT Heparin Anti-Xa Level POC ABG pH POC ABG pCO2 POC ABG pO2 Sodium Potassium Chloride Carbon Dioxide 19 L BUN 6 L Creatinine Glucose POC Glucose Lactic Acid Calcium 7.9 L Phosphorus Magnesium Iron TIBC Ferritin AST ALT Total Creatine Kinase Total Protein Albumin Vitamin B12 Folate TSH 5.190 H Free T4 Urine WBC (Auto) Urine Creatinine Urine Chloride Urine Total Protein CSF VDRL Lymph Enumerat CD4/CD8 Absolute CD3 Count % CD4 Cells Absolute CD4 Count % CD8 Cells Absolute CD19 Count T.pallidum Ab (FTA-ABS) HIV-1 RNA PCR copies/ml HIV-1 RNA (PCR) log Miscellaneous Test 09/19/18 09/19/18 09/20/18 15:00 15:00 05:33 WBC RBC Hgb Hct RDW Plt Count Seg Neuts % (Manual) Lymphocytes % (Manual) Monocytes % (Manual) Eosinophils % (Manual) Basophils % (Manual) Nucleated RBC % Seg Neutrophils # Man Abs Lymphs (Manual) Lymphocytes # (Manual) Basophils # (Manual) PT INR APTT Heparin Anti-Xa Level POC ABG pH POC ABG pCO2 POC ABG pO2 Sodium 136 L Potassium Chloride Carbon Dioxide 19 L BUN 7 L Creatinine Glucose POC Glucose Lactic Acid Calcium Phosphorus Magnesium Iron TIBC Ferritin AST ALT Total Creatine Kinase Total Protein Albumin Vitamin B12 Folate TSH Free T4 Urine WBC (Auto) Urine Creatinine Urine Chloride Urine Total Protein CSF VDRL Reactive 1:4 H Lymph Enumerat CD4/CD8 Absolute CD3 Count % CD4 Cells Absolute CD4 Count % CD8 Cells Absolute CD19 Count T.pallidum Ab (FTA-ABS) HIV-1 RNA PCR copies/ml HIV-1 RNA (PCR) log Miscellaneous Test Flexitest 1 H 02/01/0109/21/18 09/21/18 06:52 01:06 03:49 WBC 2.5 L RBC Hgb Hct RDW Plt Count Seg Neuts % (Manual) Lymphocytes % (Manual) Monocytes % (Manual) Eosinophils % (Manual) Basophils % (Manual) Nucleated RBC % Seg Neutrophils # Man Abs Lymphs (Manual) Lymphocytes # (Manual) Basophils # (Manual) PT INR APTT Heparin Anti-Xa Level POC ABG pH 7.159 L POC ABG pCO2 32.9 L 70.0 H POC ABG pO2 62 L 254 H Sodium Potassium Chloride Carbon Dioxide BUN Creatinine Glucose POC Glucose Lactic Acid Calcium Phosphorus Magnesium Iron TIBC Ferritin AST ALT Total Creatine Kinase Total Protein Albumin Vitamin B12 Folate TSH Free T4 Urine WBC (Auto) Urine Creatinine Urine Chloride Urine Total Protein CSF VDRL Lymph Enumerat CD4/CD8 Absolute CD3 Count % CD4 Cells Absolute CD4 Count % CD8 Cells Absolute CD19 Count T.pallidum Ab (FTA-ABS) HIV-1 RNA PCR copies/ml HIV-1 RNA (PCR) log Miscellaneous Test 09/21/18 09/21/18 09/21/18 04:15 04:15 04:25 WBC 3.1 L RBC Hgb 11.6 L Hct RDW Plt Count Seg Neuts % (Manual) Lymphocytes % (Manual) Monocytes % (Manual) 12.0 H Eosinophils % (Manual) Basophils % (Manual) Nucleated RBC % Seg Neutrophils # Man 1.6 L Abs Lymphs (Manual) Lymphocytes # (Manual) 0.5 L Basophils # (Manual) PT INR APTT Heparin Anti-Xa Level POC ABG pH POC ABG pCO2 POC ABG pO2 Sodium Potassium 6.1 H* D Chloride Carbon Dioxide 19 L BUN Creatinine Glucose 108 H POC Glucose Lactic Acid Calcium Phosphorus Magnesium Iron TIBC Ferritin AST ALT Total Creatine Kinase 685 H Total Protein Albumin Vitamin B12 Folate TSH Free T4 Urine WBC (Auto) Urine Creatinine Urine Chloride Urine Total Protein CSF VDRL Lymph Enumerat CD4/CD8 Absolute CD3 Count % CD4 Cells Absolute CD4 Count % CD8 Cells Absolute CD19 Count T.pallidum Ab (FTA-ABS) HIV-1 RNA PCR copies/ml HIV-1 RNA (PCR) log Miscellaneous Test 09/21/18 09/21/18 09/21/18 09:59 10:07 11:00 WBC RBC Hgb 11.7 L Hct RDW Plt Count Seg Neuts % (Manual) Lymphocytes % (Manual) Monocytes % (Manual) Eosinophils % (Manual) Basophils % (Manual) Nucleated RBC % Seg Neutrophils # Man Abs Lymphs (Manual) Lymphocytes # (Manual) Basophils # (Manual) PT INR APTT Heparin Anti-Xa Level POC ABG pH 7.301 L POC ABG pCO2 POC ABG pO2 109 H Sodium Potassium 6.5 H* Chloride Carbon Dioxide 18 L BUN Creatinine 2.1 H D Glucose POC Glucose Lactic Acid Calcium 8.1 L Phosphorus Magnesium Iron TIBC Ferritin AST 94 H ALT Total Creatine Kinase Total Protein Albumin 2.8 L Vitamin B12 Folate TSH Free T4 Urine WBC (Auto) Urine Creatinine Urine Chloride Urine Total Protein CSF VDRL Lymph Enumerat CD4/CD8 Absolute CD3 Count % CD4 Cells Absolute CD4 Count % CD8 Cells Absolute CD19 Count T.pallidum Ab (FTA-ABS) HIV-1 RNA PCR copies/ml HIV-1 RNA (PCR) log Miscellaneous Test 09/21/18 09/21/18 09/21/18 15:00 21:54 21:54 WBC RBC Hgb Hct RDW Plt Count Seg Neuts % (Manual) Lymphocytes % (Manual) Monocytes % (Manual) Eosinophils % (Manual) Basophils % (Manual) Nucleated RBC % Seg Neutrophils # Man Abs Lymphs (Manual) Lymphocytes # (Manual) Basophils # (Manual) PT 19.9 H INR 1.65 H APTT 40.9 H Heparin Anti-Xa Level 0.98 H POC ABG pH POC ABG pCO2 POC ABG pO2 Sodium Potassium 5.2 H Chloride Carbon Dioxide BUN Creatinine Glucose POC Glucose Lactic Acid Calcium Phosphorus Magnesium Iron TIBC Ferritin AST ALT Total Creatine Kinase Total Protein Albumin Vitamin B12 Folate TSH Free T4 Urine WBC (Auto) Urine Creatinine Urine Chloride Urine Total Protein CSF VDRL Lymph Enumerat CD4/CD8 Absolute CD3 Count % CD4 Cells Absolute CD4 Count % CD8 Cells Absolute CD19 Count T.pallidum Ab (FTA-ABS) HIV-1 RNA PCR copies/ml HIV-1 RNA (PCR) log Miscellaneous Test 09/21/18 09/22/18 09/22/18 22:57 03:01 05:27 WBC RBC Hgb Hct RDW Plt Count Seg Neuts % (Manual) Lymphocytes % (Manual) Monocytes % (Manual) Eosinophils % (Manual) Basophils % (Manual) Nucleated RBC % Seg Neutrophils # Man Abs Lymphs (Manual) Lymphocytes # (Manual) Basophils # (Manual) PT INR APTT Heparin Anti-Xa Level POC ABG pH POC ABG pCO2 32.7 L POC ABG pO2 Sodium Potassium Chloride Carbon Dioxide BUN Creatinine Glucose POC Glucose 124 H 128 H Lactic Acid Calcium Phosphorus Magnesium Iron TIBC Ferritin AST ALT Total Creatine Kinase Total Protein Albumin Vitamin B12 Folate TSH Free T4 Urine WBC (Auto) Urine Creatinine Urine Chloride Urine Total Protein CSF VDRL Lymph Enumerat CD4/CD8 Absolute CD3 Count % CD4 Cells Absolute CD4 Count % CD8 Cells Absolute CD19 Count T.pallidum Ab (FTA-ABS) HIV-1 RNA PCR copies/ml HIV-1 RNA (PCR) log Miscellaneous Test 09/22/18 09/22/18 09/22/18 07:00 07:00 11:32 WBC 1.8 L* RBC 3.59 L Hgb 10.1 L Hct 30.8 L RDW Plt Count 126 L Seg Neuts % (Manual) Lymphocytes % (Manual) Monocytes % (Manual) Eosinophils % (Manual) Basophils % (Manual) Nucleated RBC % Seg Neutrophils # Man Abs Lymphs (Manual) Lymphocytes # (Manual) Basophils # (Manual) PT INR APTT Heparin Anti-Xa Level POC ABG pH POC ABG pCO2 POC ABG pO2 Sodium Potassium Chloride Carbon Dioxide BUN 27 H Creatinine 2.0 H Glucose 128 H POC Glucose 123 H Lactic Acid Calcium 6.9 L Phosphorus Magnesium Iron TIBC Ferritin AST ALT Total Creatine Kinase Total Protein Albumin Vitamin B12 Folate TSH Free T4 Urine WBC (Auto) Urine Creatinine Urine Chloride Urine Total Protein CSF VDRL Lymph Enumerat CD4/CD8 Absolute CD3 Count % CD4 Cells Absolute CD4 Count % CD8 Cells Absolute CD19 Count T.pallidum Ab (FTA-ABS) HIV-1 RNA PCR copies/ml HIV-1 RNA (PCR) log Miscellaneous Test 09/22/18 09/22/18 09/22/18 15:52 18:18 23:52 WBC RBC Hgb Hct RDW Plt Count Seg Neuts % (Manual) Lymphocytes % (Manual) Monocytes % (Manual) Eosinophils % (Manual) Basophils % (Manual) Nucleated RBC % Seg Neutrophils # Man Abs Lymphs (Manual) Lymphocytes # (Manual) Basophils # (Manual) PT INR APTT Heparin Anti-Xa Level POC ABG pH POC ABG pCO2 48.7 H POC ABG pO2 Sodium Potassium Chloride Carbon Dioxide BUN Creatinine Glucose POC Glucose 110 H 124 H Lactic Acid Calcium Phosphorus Magnesium Iron TIBC Ferritin AST ALT Total Creatine Kinase Total Protein Albumin Vitamin B12 Folate TSH Free T4 Urine WBC (Auto) Urine Creatinine Urine Chloride Urine Total Protein CSF VDRL Lymph Enumerat CD4/CD8 Absolute CD3 Count % CD4 Cells Absolute CD4 Count % CD8 Cells Absolute CD19 Count T.pallidum Ab (FTA-ABS) HIV-1 RNA PCR copies/ml HIV-1 RNA (PCR) log Miscellaneous Test 09/23/18 09/23/18 09/23/18 04:10 05:55 05:55 WBC RBC Hgb 10.0 L Hct 30.3 L RDW Plt Count 117 L Seg Neuts % (Manual) Lymphocytes % (Manual) Monocytes % (Manual) Eosinophils % (Manual) Basophils % (Manual) Nucleated RBC % Seg Neutrophils # Man Abs Lymphs (Manual) Lymphocytes # (Manual) Basophils # (Manual) PT INR APTT Heparin Anti-Xa Level 0.26 L POC ABG pH POC ABG pCO2 POC ABG pO2 144 H Sodium Potassium Chloride Carbon Dioxide BUN Creatinine Glucose POC Glucose Lactic Acid Calcium Phosphorus Magnesium Iron TIBC Ferritin AST ALT Total Creatine Kinase Total Protein Albumin Vitamin B12 Folate TSH Free T4 Urine WBC (Auto) Urine Creatinine Urine Chloride Urine Total Protein CSF VDRL Lymph Enumerat CD4/CD8 Absolute CD3 Count % CD4 Cells Absolute CD4 Count % CD8 Cells Absolute CD19 Count T.pallidum Ab (FTA-ABS) HIV-1 RNA PCR copies/ml HIV-1 RNA (PCR) log Miscellaneous Test 09/23/18 09/23/18 09/23/18 08:10 08:10 23:57 WBC 1.3 L* RBC 3.53 L Hgb 9.9 L Hct 30.0 L RDW Plt Count 119 L Seg Neuts % (Manual) Lymphocytes % (Manual) Monocytes % (Manual) Eosinophils % (Manual) Basophils % (Manual) Nucleated RBC % Seg Neutrophils # Man Abs Lymphs (Manual) Lymphocytes # (Manual) Basophils # (Manual) PT INR APTT Heparin Anti-Xa Level POC ABG pH POC ABG pCO2 POC ABG pO2 Sodium Potassium Chloride Carbon Dioxide BUN Creatinine Glucose 122 H POC Glucose 115 H Lactic Acid Calcium 6.9 L Phosphorus Magnesium Iron TIBC Ferritin AST ALT Total Creatine Kinase Total Protein Albumin Vitamin B12 Folate TSH Free T4 Urine WBC (Auto) Urine Creatinine Urine Chloride Urine Total Protein CSF VDRL Lymph Enumerat CD4/CD8 Absolute CD3 Count % CD4 Cells Absolute CD4 Count % CD8 Cells Absolute CD19 Count T.pallidum Ab (FTA-ABS) HIV-1 RNA PCR copies/ml HIV-1 RNA (PCR) log Miscellaneous Test 09/24/18 09/24/18 09/24/18 12:04 14:42 18:10 WBC RBC Hgb Hct RDW Plt Count Seg Neuts % (Manual) Lymphocytes % (Manual) Monocytes % (Manual) Eosinophils % (Manual) Basophils % (Manual) Nucleated RBC % Seg Neutrophils # Man Abs Lymphs (Manual) Lymphocytes # (Manual) Basophils # (Manual) PT INR APTT Heparin Anti-Xa Level 0.76 H POC ABG pH POC ABG pCO2 POC ABG pO2 Sodium Potassium Chloride Carbon Dioxide BUN Creatinine Glucose POC Glucose 111 H 138 H Lactic Acid Calcium Phosphorus Magnesium Iron TIBC Ferritin AST ALT Total Creatine Kinase Total Protein Albumin Vitamin B12 Folate TSH Free T4 Urine WBC (Auto) Urine Creatinine Urine Chloride Urine Total Protein CSF VDRL Lymph Enumerat CD4/CD8 Absolute CD3 Count % CD4 Cells Absolute CD4 Count % CD8 Cells Absolute CD19 Count T.pallidum Ab (FTA-ABS) HIV-1 RNA PCR copies/ml HIV-1 RNA (PCR) log Miscellaneous Test 09/25/18 09/25/18 09/25/18 03:45 04:24 14:20 WBC RBC Hgb 9.7 L Hct 29.4 L RDW Plt Count 104 L Seg Neuts % (Manual) Lymphocytes % (Manual) Monocytes % (Manual) Eosinophils % (Manual) Basophils % (Manual) Nucleated RBC % Seg Neutrophils # Man Abs Lymphs (Manual) Lymphocytes # (Manual) Basophils # (Manual) PT INR APTT Heparin Anti-Xa Level POC ABG pH 7.460 H POC ABG pCO2 32.9 L POC ABG pO2 Sodium Potassium 3.5 L Chloride 110.3 H Carbon Dioxide BUN Creatinine Glucose 105 H POC Glucose Lactic Acid Calcium 6.7 L Phosphorus Magnesium Iron TIBC Ferritin AST 633 H ALT 481 H Total Creatine Kinase Total Protein 4.8 L D Albumin 1.9 L Vitamin B12 Folate TSH Free T4 Urine WBC (Auto) Urine Creatinine Urine Chloride Urine Total Protein CSF VDRL Lymph Enumerat CD4/CD8 Absolute CD3 Count % CD4 Cells Absolute CD4 Count % CD8 Cells Absolute CD19 Count T.pallidum Ab (FTA-ABS) HIV-1 RNA PCR copies/ml HIV-1 RNA (PCR) log Miscellaneous Test 09/26/18 09/26/18 09/26/18 06:15 06:15 10:43 WBC 1.2 L* RBC 3.32 L Hgb 9.2 L Hct 28.6 L RDW Plt Count 97 L Seg Neuts % (Manual) 24.0 L Lymphocytes % (Manual) 43.0 H Monocytes % (Manual) 19.0 H Eosinophils % (Manual) 8.0 H Basophils % (Manual) 2.0 H Nucleated RBC % 3.0 H Seg Neutrophils # Man 0.0 L Abs Lymphs (Manual) Lymphocytes # (Manual) 0.0 L Basophils # (Manual) PT INR APTT Heparin Anti-Xa Level POC ABG pH 7.459 H POC ABG pCO2 POC ABG pO2 141 H Sodium Potassium Chloride 112.8 H Carbon Dioxide BUN Creatinine Glucose 110 H POC Glucose Lactic Acid Calcium 7.0 L Phosphorus 0.90 L* Magnesium Iron TIBC Ferritin AST 362 H ALT 360 H Total Creatine Kinase Total Protein 4.9 L Albumin 1.5 L Vitamin B12 Folate TSH Free T4 Urine WBC (Auto) Urine Creatinine Urine Chloride Urine Total Protein CSF VDRL Lymph Enumerat CD4/CD8 Absolute CD3 Count % CD4 Cells Absolute CD4 Count % CD8 Cells Absolute CD19 Count T.pallidum Ab (FTA-ABS) HIV-1 RNA PCR copies/ml HIV-1 RNA (PCR) log Miscellaneous Test 09/26/18 09/27/18 09/28/18 13:56 04:11 07:49 WBC RBC Hgb 9.1 L Hct 29.1 L RDW Plt Count 96 L Seg Neuts % (Manual) Lymphocytes % (Manual) Monocytes % (Manual) Eosinophils % (Manual) Basophils % (Manual) Nucleated RBC % Seg Neutrophils # Man Abs Lymphs (Manual) Lymphocytes # (Manual) Basophils # (Manual) PT INR APTT Heparin Anti-Xa Level POC ABG pH POC ABG pCO2 POC ABG pO2 Sodium 146 H Potassium Chloride 111.6 H Carbon Dioxide BUN Creatinine Glucose POC Glucose 135 H Lactic Acid Calcium 7.4 L Phosphorus Magnesium Iron TIBC Ferritin AST ALT Total Creatine Kinase Total Protein Albumin Vitamin B12 Folate TSH Free T4 Urine WBC (Auto) Urine Creatinine Urine Chloride Urine Total Protein CSF VDRL Lymph Enumerat CD4/CD8 Absolute CD3 Count % CD4 Cells Absolute CD4 Count % CD8 Cells Absolute CD19 Count T.pallidum Ab (FTA-ABS) HIV-1 RNA PCR copies/ml HIV-1 RNA (PCR) log Miscellaneous Test 09/28/18 09/29/18 09/29/18 10:43 05:00 05:00 WBC 1.2 L* RBC 3.13 L Hgb 8.6 L Hct 27.3 L RDW Plt Count 137 L Seg Neuts % (Manual) Lymphocytes % (Manual) Monocytes % (Manual) 16.0 H Eosinophils % (Manual) Basophils % (Manual) Nucleated RBC % 4.0 H Seg Neutrophils # Man 0.5 L Abs Lymphs (Manual) Lymphocytes # (Manual) 0.3 L Basophils # (Manual) PT INR APTT Heparin Anti-Xa Level POC ABG pH 7.300 L POC ABG pCO2 53.9 H POC ABG pO2 Sodium 147 H Potassium 3.4 L Chloride 114.5 H Carbon Dioxide BUN Creatinine Glucose POC Glucose Lactic Acid Calcium 7.7 L Phosphorus Magnesium Iron TIBC Ferritin AST 69 H ALT 110 H Total Creatine Kinase Total Protein 5.2 L Albumin 1.9 L Vitamin B12 Folate TSH Free T4 Urine WBC (Auto) Urine Creatinine Urine Chloride Urine Total Protein CSF VDRL Lymph Enumerat CD4/CD8 Absolute CD3 Count % CD4 Cells Absolute CD4 Count % CD8 Cells Absolute CD19 Count T.pallidum Ab (FTA-ABS) HIV-1 RNA PCR copies/ml HIV-1 RNA (PCR) log Miscellaneous Test 09/29/18 09/29/18 09/30/18 06:07 13:22 05:19 WBC 0.9 L* RBC 3.03 L Hgb 8.6 L Hct 25.9 L RDW Plt Count Seg Neuts % (Manual) Lymphocytes % (Manual) Monocytes % (Manual) Eosinophils % (Manual) Basophils % (Manual) Nucleated RBC % Seg Neutrophils # Man Abs Lymphs (Manual) Lymphocytes # (Manual) Basophils # (Manual) PT INR APTT Heparin Anti-Xa Level POC ABG pH POC ABG pCO2 46.9 H POC ABG pO2 Sodium Potassium Chloride Carbon Dioxide BUN Creatinine Glucose POC Glucose 109 H Lactic Acid Calcium Phosphorus Magnesium Iron TIBC Ferritin AST ALT Total Creatine Kinase Total Protein Albumin Vitamin B12 Folate TSH Free T4 Urine WBC (Auto) Urine Creatinine Urine Chloride Urine Total Protein CSF VDRL Lymph Enumerat CD4/CD8 Absolute CD3 Count % CD4 Cells Absolute CD4 Count % CD8 Cells Absolute CD19 Count T.pallidum Ab (FTA-ABS) HIV-1 RNA PCR copies/ml HIV-1 RNA (PCR) log Miscellaneous Test 09/30/18 09/30/18 09/30/18 05:19 11:14 23:28 WBC RBC Hgb Hct RDW Plt Count Seg Neuts % (Manual) Lymphocytes % (Manual) Monocytes % (Manual) Eosinophils % (Manual) Basophils % (Manual) Nucleated RBC % Seg Neutrophils # Man Abs Lymphs (Manual) Lymphocytes # (Manual) Basophils # (Manual) PT INR APTT Heparin Anti-Xa Level 0.72 H POC ABG pH POC ABG pCO2 46.6 H POC ABG pO2 Sodium 150 H Potassium Chloride 115.2 H Carbon Dioxide BUN Creatinine Glucose POC Glucose Lactic Acid Calcium 7.9 L Phosphorus Magnesium Iron TIBC Ferritin AST ALT Total Creatine Kinase Total Protein Albumin Vitamin B12 Folate TSH Free T4 Urine WBC (Auto) Urine Creatinine Urine Chloride Urine Total Protein CSF VDRL Lymph Enumerat CD4/CD8 Absolute CD3 Count % CD4 Cells Absolute CD4 Count % CD8 Cells Absolute CD19 Count T.pallidum Ab (FTA-ABS) HIV-1 RNA PCR copies/ml HIV-1 RNA (PCR) log Miscellaneous Test 10/01/18 10/01/18 10/02/18 04:55 04:55 07:15 WBC 0.9 L* 0.7 L* RBC 3.01 L 2.92 L Hgb 8.4 L 8.4 L Hct 26.0 L 24.9 L RDW Plt Count Seg Neuts % (Manual) Lymphocytes % (Manual) Monocytes % (Manual) Eosinophils % (Manual) Basophils % (Manual) Nucleated RBC % Seg Neutrophils # Man Abs Lymphs (Manual) Lymphocytes # (Manual) Basophils # (Manual) PT INR APTT Heparin Anti-Xa Level POC ABG pH POC ABG pCO2 POC ABG pO2 Sodium 147 H Potassium 3.4 L Chloride 113.1 H Carbon Dioxide BUN 22 H Creatinine Glucose POC Glucose Lactic Acid Calcium 7.3 L Phosphorus Magnesium Iron TIBC Ferritin AST ALT Total Creatine Kinase Total Protein Albumin Vitamin B12 Folate TSH Free T4 Urine WBC (Auto) Urine Creatinine Urine Chloride Urine Total Protein CSF VDRL Lymph Enumerat CD4/CD8 Absolute CD3 Count % CD4 Cells Absolute CD4 Count % CD8 Cells Absolute CD19 Count T.pallidum Ab (FTA-ABS) HIV-1 RNA PCR copies/ml HIV-1 RNA (PCR) log Miscellaneous Test 10/02/18 10/03/18 10/03/18 07:15 06:12 06:12 WBC 0.8 L* RBC 2.96 L Hgb 8.5 L Hct 25.9 L RDW 15.4 H Plt Count Seg Neuts % (Manual) Lymphocytes % (Manual) Monocytes % (Manual) Eosinophils % (Manual) Basophils % (Manual) Nucleated RBC % Seg Neutrophils # Man Abs Lymphs (Manual) Lymphocytes # (Manual) Basophils # (Manual) PT INR APTT Heparin Anti-Xa Level POC ABG pH POC ABG pCO2 POC ABG pO2 Sodium Potassium 3.4 L 3.4 L Chloride 108.3 H Carbon Dioxide BUN Creatinine Glucose POC Glucose Lactic Acid Calcium 7.6 L 7.4 L Phosphorus Magnesium Iron TIBC Ferritin AST ALT Total Creatine Kinase Total Protein Albumin Vitamin B12 Folate TSH Free T4 Urine WBC (Auto) Urine Creatinine Urine Chloride Urine Total Protein CSF VDRL Lymph Enumerat CD4/CD8 Absolute CD3 Count % CD4 Cells Absolute CD4 Count % CD8 Cells Absolute CD19 Count T.pallidum Ab (FTA-ABS) HIV-1 RNA PCR copies/ml HIV-1 RNA (PCR) log Miscellaneous Test 10/03/18 10/03/18 10/04/18 11:45 13:23 01:40 WBC RBC Hgb Hct RDW Plt Count Seg Neuts % (Manual) Lymphocytes % (Manual) Monocytes % (Manual) Eosinophils % (Manual) Basophils % (Manual) Nucleated RBC % Seg Neutrophils # Man Abs Lymphs (Manual) Lymphocytes # (Manual) Basophils # (Manual) PT INR APTT Heparin Anti-Xa Level 1.34 H 0.26 L POC ABG pH POC ABG pCO2 POC ABG pO2 Sodium Potassium Chloride Carbon Dioxide BUN Creatinine Glucose POC Glucose Lactic Acid Calcium Phosphorus Magnesium 1.40 L Iron TIBC Ferritin AST ALT Total Creatine Kinase Total Protein Albumin Vitamin B12 Folate TSH Free T4 Urine WBC (Auto) Urine Creatinine Urine Chloride Urine Total Protein CSF VDRL Lymph Enumerat CD4/CD8 Absolute CD3 Count % CD4 Cells Absolute CD4 Count % CD8 Cells Absolute CD19 Count T.pallidum Ab (FTA-ABS) HIV-1 RNA PCR copies/ml HIV-1 RNA (PCR) log Miscellaneous Test 10/04/18 10/04/18 10/06/18 04:45 04:45 09:40 WBC 0.8 L* RBC 3.11 L Hgb 9.0 L Hct 27.4 L RDW 15.4 H Plt Count Seg Neuts % (Manual) Lymphocytes % (Manual) Monocytes % (Manual) Eosinophils % (Manual) Basophils % (Manual) Nucleated RBC % Seg Neutrophils # Man Abs Lymphs (Manual) Lymphocytes # (Manual) Basophils # (Manual) PT INR APTT Heparin Anti-Xa Level POC ABG pH POC ABG pCO2 POC ABG pO2 Sodium Potassium Chloride Carbon Dioxide BUN Creatinine 0.7 L Glucose POC Glucose Lactic Acid Calcium 7.5 L Phosphorus Magnesium Iron 35 L TIBC 157 L Ferritin AST ALT Total Creatine Kinase Total Protein Albumin Vitamin B12 Folate TSH Free T4 Urine WBC (Auto) Urine Creatinine Urine Chloride Urine Total Protein CSF VDRL Lymph Enumerat CD4/CD8 Absolute CD3 Count % CD4 Cells Absolute CD4 Count % CD8 Cells Absolute CD19 Count T.pallidum Ab (FTA-ABS) HIV-1 RNA PCR copies/ml HIV-1 RNA (PCR) log Miscellaneous Test 10/06/18 10/06/18 10/07/18 09:40 09:40 04:20 WBC 1.1 L* RBC 3.07 L Hgb 9.1 L Hct 27.3 L RDW 20.3 H Plt Count Seg Neuts % (Manual) Lymphocytes % (Manual) Monocytes % (Manual) Eosinophils % (Manual) Basophils % (Manual) Nucleated RBC % Seg Neutrophils # Man 0.7 L Abs Lymphs (Manual) Lymphocytes # (Manual) 0.3 L Basophils # (Manual) PT INR APTT Heparin Anti-Xa Level POC ABG pH POC ABG pCO2 POC ABG pO2 Sodium Potassium Chloride Carbon Dioxide BUN Creatinine Glucose POC Glucose Lactic Acid Calcium Phosphorus Magnesium Iron TIBC Ferritin 1126.0 H AST ALT Total Creatine Kinase Total Protein Albumin Vitamin B12 Folate 6.71 L TSH Free T4 Urine WBC (Auto) Urine Creatinine Urine Chloride Urine Total Protein CSF VDRL Lymph Enumerat CD4/CD8 Absolute CD3 Count % CD4 Cells Absolute CD4 Count % CD8 Cells Absolute CD19 Count T.pallidum Ab (FTA-ABS) HIV-1 RNA PCR copies/ml HIV-1 RNA (PCR) log Miscellaneous Test 10/07/18 10/07/18 10/09/18 04:20 15:38 04:20 WBC 1.1 L* RBC 3.35 L Hgb 9.9 L Hct 30.1 L RDW 21.4 H Plt Count Seg Neuts % (Manual) 19.0 L Lymphocytes % (Manual) 42.0 H Monocytes % (Manual) 18.0 H Eosinophils % (Manual) 15.0 H Basophils % (Manual) 2.0 H Nucleated RBC % Seg Neutrophils # Man 0.2 L Abs Lymphs (Manual) Lymphocytes # (Manual) 0.5 L Basophils # (Manual) PT INR APTT Heparin Anti-Xa Level POC ABG pH 7.516 H POC ABG pCO2 32.1 L POC ABG pO2 Sodium Potassium Chloride Carbon Dioxide BUN Creatinine 0.7 L Glucose POC Glucose Lactic Acid Calcium 7.9 L Phosphorus Magnesium Iron TIBC Ferritin AST ALT Total Creatine Kinase Total Protein 5.5 L Albumin 2.2 L Vitamin B12 Folate TSH Free T4 Urine WBC (Auto) Urine Creatinine Urine Chloride Urine Total Protein CSF VDRL Lymph Enumerat CD4/CD8 Absolute CD3 Count % CD4 Cells Absolute CD4 Count % CD8 Cells Absolute CD19 Count T.pallidum Ab (FTA-ABS) HIV-1 RNA PCR copies/ml HIV-1 RNA (PCR) log Miscellaneous Test 10/09/18 10/09/18 10/09/18 04:20 11:48 17:31 WBC RBC Hgb Hct RDW Plt Count Seg Neuts % (Manual) Lymphocytes % (Manual) Monocytes % (Manual) Eosinophils % (Manual) Basophils % (Manual) Nucleated RBC % Seg Neutrophils # Man Abs Lymphs (Manual) Lymphocytes # (Manual) Basophils # (Manual) PT INR APTT Heparin Anti-Xa Level POC ABG pH POC ABG pCO2 POC ABG pO2 Sodium Potassium 5.4 H Chloride Carbon Dioxide 21 L BUN 55 H 72 H Creatinine 3.8 H D 4.5 H Glucose 118 H POC Glucose 124 H Lactic Acid Calcium 8.3 L 8.2 L Phosphorus Magnesium Iron TIBC Ferritin AST ALT Total Creatine Kinase Total Protein Albumin Vitamin B12 Folate TSH Free T4 Urine WBC (Auto) Urine Creatinine Urine Chloride Urine Total Protein CSF VDRL Lymph Enumerat CD4/CD8 Absolute CD3 Count % CD4 Cells Absolute CD4 Count % CD8 Cells Absolute CD19 Count T.pallidum Ab (FTA-ABS) HIV-1 RNA PCR copies/ml HIV-1 RNA (PCR) log Miscellaneous Test 10/10/18 10/10/18 10/10/18 08:09 08:35 10:54 WBC 1.1 L* RBC 3.16 L Hgb 9.6 L Hct 28.8 L RDW 21.2 H Plt Count Seg Neuts % (Manual) 27.0 L Lymphocytes % (Manual) Monocytes % (Manual) 9.0 H Eosinophils % (Manual) 18.0 H Basophils % (Manual) 12.0 H Nucleated RBC % Seg Neutrophils # Man 0.3 L Abs Lymphs (Manual) Lymphocytes # (Manual) 0.3 L Basophils # (Manual) PT 16.0 H INR 1.20 H APTT Heparin Anti-Xa Level POC ABG pH POC ABG pCO2 POC ABG pO2 Sodium Potassium 5.5 H Chloride Carbon Dioxide 20 L BUN 83 H Creatinine 5.5 H Glucose 119 H POC Glucose Lactic Acid Calcium Phosphorus Magnesium Iron TIBC Ferritin AST ALT Total Creatine Kinase Total Protein Albumin Vitamin B12 Folate TSH Free T4 Urine WBC (Auto) Urine Creatinine Urine Chloride Urine Total Protein CSF VDRL Lymph Enumerat CD4/CD8 Absolute CD3 Count % CD4 Cells Absolute CD4 Count % CD8 Cells Absolute CD19 Count T.pallidum Ab (FTA-ABS) HIV-1 RNA PCR copies/ml HIV-1 RNA (PCR) log Miscellaneous Test 10/10/18 10/10/18 10/11/18 Unknown Unknown 05:20 WBC 1.2 L* RBC 2.89 L Hgb 8.7 L Hct 26.0 L RDW 20.1 H Plt Count Seg Neuts % (Manual) Lymphocytes % (Manual) 8.0 L Monocytes % (Manual) 12.0 H Eosinophils % (Manual) 24.0 H Basophils % (Manual) 4.0 H Nucleated RBC % Seg Neutrophils # Man 0.6 L Abs Lymphs (Manual) Lymphocytes # (Manual) 0.1 L Basophils # (Manual) PT INR APTT Heparin Anti-Xa Level POC ABG pH POC ABG pCO2 POC ABG pO2 Sodium Potassium Chloride Carbon Dioxide BUN Creatinine Glucose POC Glucose Lactic Acid Calcium Phosphorus Magnesium Iron TIBC Ferritin AST ALT Total Creatine Kinase Total Protein Albumin Vitamin B12 Folate TSH Free T4 Urine WBC (Auto) Urine Creatinine Urine Chloride Urine Total Protein CSF VDRL Reactive 1:2 H Lymph Enumerat CD4/CD8 Absolute CD3 Count % CD4 Cells Absolute CD4 Count % CD8 Cells Absolute CD19 Count T.pallidum Ab (FTA-ABS) HIV-1 RNA PCR copies/ml HIV-1 RNA (PCR) log Miscellaneous Test Flexitest 1 H 10/11/18 10/11/18 10/11/18 05:20 05:40 05:40 WBC RBC Hgb Hct RDW Plt Count Seg Neuts % (Manual) Lymphocytes % (Manual) Monocytes % (Manual) Eosinophils % (Manual) Basophils % (Manual) Nucleated RBC % Seg Neutrophils # Man Abs Lymphs (Manual) Lymphocytes # (Manual) Basophils # (Manual) PT INR APTT Heparin Anti-Xa Level POC ABG pH POC ABG pCO2 POC ABG pO2 Sodium Potassium Chloride Carbon Dioxide 20 L BUN 102 H Creatinine 6.7 H Glucose POC Glucose Lactic Acid Calcium 8.3 L Phosphorus Magnesium Iron TIBC Ferritin AST ALT Total Creatine Kinase Total Protein Albumin Vitamin B12 Folate TSH Free T4 Urine WBC (Auto) 8.0 H Urine Creatinine 57.5 H Urine Chloride 35.1 L Urine Total Protein 44 H CSF VDRL Lymph Enumerat CD4/CD8 Absolute CD3 Count % CD4 Cells Absolute CD4 Count % CD8 Cells Absolute CD19 Count T.pallidum Ab (FTA-ABS) HIV-1 RNA PCR copies/ml HIV-1 RNA (PCR) log Miscellaneous Test 10/11/18 10/12/18 10/12/18 16:41 03:30 03:30 WBC 0.9 L* RBC 2.78 L Hgb 8.3 L Hct 25.1 L RDW 19.9 H Plt Count Seg Neuts % (Manual) Lymphocytes % (Manual) Monocytes % (Manual) Eosinophils % (Manual) 20.0 H Basophils % (Manual) Nucleated RBC % Seg Neutrophils # Man 0.5 L Abs Lymphs (Manual) Lymphocytes # (Manual) 0.3 L Basophils # (Manual) PT INR APTT Heparin Anti-Xa Level POC ABG pH 7.318 L POC ABG pCO2 POC ABG pO2 Sodium Potassium Chloride Carbon Dioxide 18 L BUN 111 H Creatinine 7.3 H Glucose POC Glucose Lactic Acid Calcium 7.9 L Phosphorus Magnesium Iron TIBC Ferritin AST ALT Total Creatine Kinase Total Protein Albumin Vitamin B12 Folate TSH Free T4 Urine WBC (Auto) Urine Creatinine Urine Chloride Urine Total Protein CSF VDRL Lymph Enumerat CD4/CD8 Absolute CD3 Count % CD4 Cells Absolute CD4 Count % CD8 Cells Absolute CD19 Count T.pallidum Ab (FTA-ABS) HIV-1 RNA PCR copies/ml HIV-1 RNA (PCR) log Miscellaneous Test 10/12/18 10/13/18 10/13/18 13:30 04:00 04:05 WBC 1.0 L* RBC 2.68 L Hgb 8.1 L Hct 24.3 L RDW 19.7 H Plt Count Seg Neuts % (Manual) 36.7 L Lymphocytes % (Manual) Monocytes % (Manual) Eosinophils % (Manual) 16.7 H Basophils % (Manual) 16.7 H Nucleated RBC % Seg Neutrophils # Man 0.4 L Abs Lymphs (Manual) Lymphocytes # (Manual) 0.2 L Basophils # (Manual) 0.2 H PT INR APTT Heparin Anti-Xa Level POC ABG pH 7.336 L POC ABG pCO2 31.5 L POC ABG pO2 122 H Sodium Potassium Chloride Carbon Dioxide 17 L BUN 118 H Creatinine 7.8 H Glucose 102 H POC Glucose Lactic Acid Calcium 7.8 L Phosphorus Magnesium Iron TIBC Ferritin AST ALT Total Creatine Kinase Total Protein Albumin Vitamin B12 Folate TSH Free T4 Urine WBC (Auto) Urine Creatinine Urine Chloride Urine Total Protein CSF VDRL Lymph Enumerat CD4/CD8 Absolute CD3 Count % CD4 Cells Absolute CD4 Count % CD8 Cells Absolute CD19 Count T.pallidum Ab (FTA-ABS) HIV-1 RNA PCR copies/ml HIV-1 RNA (PCR) log Miscellaneous Test 10/13/18 10/14/18 10/14/18 18:44 00:01 05:20 WBC RBC Hgb Hct RDW Plt Count Seg Neuts % (Manual) Lymphocytes % (Manual) Monocytes % (Manual) Eosinophils % (Manual) Basophils % (Manual) Nucleated RBC % Seg Neutrophils # Man Abs Lymphs (Manual) Lymphocytes # (Manual) Basophils # (Manual) PT INR APTT Heparin Anti-Xa Level POC ABG pH POC ABG pCO2 POC ABG pO2 Sodium Potassium Chloride Carbon Dioxide BUN Creatinine Glucose POC Glucose 141 H 134 H 171 H Lactic Acid Calcium Phosphorus Magnesium Iron TIBC Ferritin AST ALT Total Creatine Kinase Total Protein Albumin Vitamin B12 Folate TSH Free T4 Urine WBC (Auto) Urine Creatinine Urine Chloride Urine Total Protein CSF VDRL Lymph Enumerat CD4/CD8 Absolute CD3 Count % CD4 Cells Absolute CD4 Count % CD8 Cells Absolute CD19 Count T.pallidum Ab (FTA-ABS) HIV-1 RNA PCR copies/ml HIV-1 RNA (PCR) log Miscellaneous Test 10/14/18 10/14/18 10/14/18 09:39 09:40 11:37 WBC RBC Hgb Hct RDW Plt Count Seg Neuts % (Manual) Lymphocytes % (Manual) Monocytes % (Manual) Eosinophils % (Manual) Basophils % (Manual) Nucleated RBC % Seg Neutrophils # Man Abs Lymphs (Manual) Lymphocytes # (Manual) Basophils # (Manual) PT INR APTT Heparin Anti-Xa Level POC ABG pH POC ABG pCO2 POC ABG pO2 Sodium 147 H Potassium 3.4 L Chloride 108.1 H Carbon Dioxide 16 L BUN 124 H Creatinine 6.7 H Glucose 144 H POC Glucose 164 H Lactic Acid Calcium 7.8 L Phosphorus 8.50 H Magnesium Iron TIBC Ferritin AST ALT Total Creatine Kinase Total Protein Albumin Vitamin B12 Folate TSH Free T4 Urine WBC (Auto) Urine Creatinine Urine Chloride Urine Total Protein CSF VDRL Lymph Enumerat CD4/CD8 Absolute CD3 Count % CD4 Cells Absolute CD4 Count % CD8 Cells Absolute CD19 Count T.pallidum Ab (FTA-ABS) HIV-1 RNA PCR copies/ml HIV-1 RNA (PCR) log Miscellaneous Test 10/14/18 10/14/18 10/15/18 Unknown Unknown 00:05 WBC 0.5 L* RBC 2.80 L Hgb 8.2 L Hct 25.2 L RDW 19.7 H Plt Count Seg Neuts % (Manual) Lymphocytes % (Manual) 10.0 L Monocytes % (Manual) Eosinophils % (Manual) 10.0 H Basophils % (Manual) Nucleated RBC % Seg Neutrophils # Man 0.4 L Abs Lymphs (Manual) Lymphocytes # (Manual) 0.1 L Basophils # (Manual) PT INR APTT Heparin Anti-Xa Level POC ABG pH POC ABG pCO2 POC ABG pO2 Sodium Potassium Chloride Carbon Dioxide 13 L BUN 126 H Creatinine 7.7 H Glucose 153 H POC Glucose 190 H Lactic Acid Calcium 7.8 L Phosphorus Magnesium Iron TIBC Ferritin AST ALT Total Creatine Kinase Total Protein Albumin Vitamin B12 Folate TSH Free T4 Urine WBC (Auto) Urine Creatinine Urine Chloride Urine Total Protein CSF VDRL Lymph Enumerat CD4/CD8 Absolute CD3 Count % CD4 Cells Absolute CD4 Count % CD8 Cells Absolute CD19 Count T.pallidum Ab (FTA-ABS) HIV-1 RNA PCR copies/ml HIV-1 RNA (PCR) log Miscellaneous Test 10/15/18 10/15/18 10/15/18 04:15 04:15 05:03 WBC 0.8 L* RBC 2.73 L Hgb 8.2 L Hct 24.4 L RDW 18.8 H Plt Count Seg Neuts % (Manual) Lymphocytes % (Manual) Monocytes % (Manual) Eosinophils % (Manual) Basophils % (Manual) Nucleated RBC % Seg Neutrophils # Man Abs Lymphs (Manual) Lymphocytes # (Manual) Basophils # (Manual) PT INR APTT Heparin Anti-Xa Level POC ABG pH POC ABG pCO2 POC ABG pO2 Sodium 148 H Potassium 2.9 L* Chloride 108.5 H Carbon Dioxide 17 L BUN 127 H Creatinine 6.1 H Glucose 154 H POC Glucose 170 H Lactic Acid Calcium 7.7 L Phosphorus Magnesium Iron TIBC Ferritin AST ALT Total Creatine Kinase Total Protein 6.0 L Albumin 2.3 L Vitamin B12 Folate TSH Free T4 Urine WBC (Auto) Urine Creatinine Urine Chloride Urine Total Protein CSF VDRL Lymph Enumerat CD4/CD8 Absolute CD3 Count % CD4 Cells Absolute CD4 Count % CD8 Cells Absolute CD19 Count T.pallidum Ab (FTA-ABS) HIV-1 RNA PCR copies/ml HIV-1 RNA (PCR) log Miscellaneous Test 10/15/18 10/15/18 10/15/18 12:23 17:42 17:49 WBC RBC Hgb Hct RDW Plt Count Seg Neuts % (Manual) Lymphocytes % (Manual) Monocytes % (Manual) Eosinophils % (Manual) Basophils % (Manual) Nucleated RBC % Seg Neutrophils # Man Abs Lymphs (Manual) Lymphocytes # (Manual) Basophils # (Manual) PT INR APTT Heparin Anti-Xa Level POC ABG pH POC ABG pCO2 POC ABG pO2 Sodium 146 H Potassium 3.0 L Chloride 109.4 H Carbon Dioxide 16 L BUN 124 H Creatinine 5.6 H Glucose 162 H POC Glucose 180 H 173 H Lactic Acid Calcium 7.5 L Phosphorus Magnesium Iron TIBC Ferritin AST ALT Total Creatine Kinase Total Protein Albumin Vitamin B12 Folate TSH Free T4 Urine WBC (Auto) Urine Creatinine Urine Chloride Urine Total Protein CSF VDRL Lymph Enumerat CD4/CD8 Absolute CD3 Count % CD4 Cells Absolute CD4 Count % CD8 Cells Absolute CD19 Count T.pallidum Ab (FTA-ABS) HIV-1 RNA PCR copies/ml HIV-1 RNA (PCR) log Miscellaneous Test 10/15/18 10/16/18 10/16/18 23:56 05:37 07:50 WBC 1.1 L* RBC 2.70 L Hgb 8.0 L Hct 24.4 L RDW 18.9 H Plt Count Seg Neuts % (Manual) Lymphocytes % (Manual) Monocytes % (Manual) 8.0 H Eosinophils % (Manual) Basophils % (Manual) Nucleated RBC % Seg Neutrophils # Man 0.7 L Abs Lymphs (Manual) Lymphocytes # (Manual) 0.2 L Basophils # (Manual) PT INR APTT Heparin Anti-Xa Level POC ABG pH POC ABG pCO2 POC ABG pO2 Sodium Potassium Chloride Carbon Dioxide BUN Creatinine Glucose POC Glucose 164 H 152 H Lactic Acid Calcium Phosphorus Magnesium Iron TIBC Ferritin AST ALT Total Creatine Kinase Total Protein Albumin Vitamin B12 Folate TSH Free T4 Urine WBC (Auto) Urine Creatinine Urine Chloride Urine Total Protein CSF VDRL Lymph Enumerat CD4/CD8 Absolute CD3 Count % CD4 Cells Absolute CD4 Count % CD8 Cells Absolute CD19 Count T.pallidum Ab (FTA-ABS) HIV-1 RNA PCR copies/ml HIV-1 RNA (PCR) log Miscellaneous Test 10/16/18 10/16/18 10/16/18 07:50 12:35 18:00 WBC RBC Hgb Hct RDW Plt Count Seg Neuts % (Manual) Lymphocytes % (Manual) Monocytes % (Manual) Eosinophils % (Manual) Basophils % (Manual) Nucleated RBC % Seg Neutrophils # Man Abs Lymphs (Manual) Lymphocytes # (Manual) Basophils # (Manual) PT INR APTT Heparin Anti-Xa Level POC ABG pH POC ABG pCO2 POC ABG pO2 Sodium 147 H Potassium 3.0 L Chloride Carbon Dioxide 15 L BUN 143 H Creatinine 6.2 H Glucose 182 H POC Glucose 122 H 160 H Lactic Acid Calcium 8.1 L Phosphorus Magnesium Iron TIBC Ferritin AST ALT Total Creatine Kinase Total Protein Albumin Vitamin B12 Folate TSH Free T4 Urine WBC (Auto) Urine Creatinine Urine Chloride Urine Total Protein CSF VDRL Lymph Enumerat CD4/CD8 Absolute CD3 Count % CD4 Cells Absolute CD4 Count % CD8 Cells Absolute CD19 Count T.pallidum Ab (FTA-ABS) HIV-1 RNA PCR copies/ml HIV-1 RNA (PCR) log Miscellaneous Test 10/16/18 10/17/18 10/17/18 23:32 05:03 11:32 WBC RBC Hgb Hct RDW Plt Count Seg Neuts % (Manual) Lymphocytes % (Manual) Monocytes % (Manual) Eosinophils % (Manual) Basophils % (Manual) Nucleated RBC % Seg Neutrophils # Man Abs Lymphs (Manual) Lymphocytes # (Manual) Basophils # (Manual) PT INR APTT Heparin Anti-Xa Level POC ABG pH POC ABG pCO2 POC ABG pO2 Sodium Potassium Chloride Carbon Dioxide BUN Creatinine Glucose POC Glucose 131 H 112 H 149 H Lactic Acid Calcium Phosphorus Magnesium Iron TIBC Ferritin AST ALT Total Creatine Kinase Total Protein Albumin Vitamin B12 Folate TSH Free T4 Urine WBC (Auto) Urine Creatinine Urine Chloride Urine Total Protein CSF VDRL Lymph Enumerat CD4/CD8 Absolute CD3 Count % CD4 Cells Absolute CD4 Count % CD8 Cells Absolute CD19 Count T.pallidum Ab (FTA-ABS) HIV-1 RNA PCR copies/ml HIV-1 RNA (PCR) log Miscellaneous Test 10/19/18 10/19/18 10/19/18 04:00 06:15 14:54 WBC 0.7 L* 0.7 L* RBC 2.77 L 2.77 L Hgb 7.9 L 8.3 L Hct 24.7 L 24.6 L RDW 19.4 H 19.2 H Plt Count 112 L 105 L Seg Neuts % (Manual) Lymphocytes % (Manual) Monocytes % (Manual) 17.0 H 16.0 H Eosinophils % (Manual) 6.0 H Basophils % (Manual) 2.0 H Nucleated RBC % Seg Neutrophils # Man 0.3 L 0.3 L Abs Lymphs (Manual) Lymphocytes # (Manual) 0.2 L 0.2 L Basophils # (Manual) PT INR APTT Heparin Anti-Xa Level POC ABG pH POC ABG pCO2 POC ABG pO2 Sodium Potassium 2.9 L* Chloride Carbon Dioxide 19 L BUN 107 H Creatinine 5.9 H Glucose POC Glucose Lactic Acid Calcium 7.9 L Phosphorus Magnesium Iron TIBC Ferritin AST 54 H ALT Total Creatine Kinase Total Protein 5.7 L Albumin 2.5 L Vitamin B12 Folate TSH Free T4 Urine WBC (Auto) Urine Creatinine Urine Chloride Urine Total Protein CSF VDRL Lymph Enumerat CD4/CD8 Absolute CD3 Count % CD4 Cells Absolute CD4 Count % CD8 Cells Absolute CD19 Count T.pallidum Ab (FTA-ABS) HIV-1 RNA PCR copies/ml HIV-1 RNA (PCR) log Miscellaneous Test 10/20/18 10/20/18 05:34 12:17 WBC RBC Hgb Hct RDW Plt Count Seg Neuts % (Manual) Lymphocytes % (Manual) Monocytes % (Manual) Eosinophils % (Manual) Basophils % (Manual) Nucleated RBC % Seg Neutrophils # Man Abs Lymphs (Manual) Lymphocytes # (Manual) Basophils # (Manual) PT INR APTT Heparin Anti-Xa Level POC ABG pH POC ABG pCO2 33.3 L POC ABG pO2 107 H Sodium Potassium Chloride Carbon Dioxide BUN Creatinine Glucose POC Glucose 113 H Lactic Acid Calcium Phosphorus Magnesium Iron TIBC Ferritin AST ALT Total Creatine Kinase Total Protein Albumin Vitamin B12 Folate TSH Free T4 Urine WBC (Auto) Urine Creatinine Urine Chloride Urine Total Protein CSF VDRL Lymph Enumerat CD4/CD8 Absolute CD3 Count % CD4 Cells Absolute CD4 Count % CD8 Cells Absolute CD19 Count T.pallidum Ab (FTA-ABS) HIV-1 RNA PCR copies/ml HIV-1 RNA (PCR) log Miscellaneous Test Chest x-ray: pending Allied health notes reviewed: nursing
--- NOTE | 2018-10-20 16:57 | Progress Note ---
Assessment and Plan - Patient Problems (1) Acute kidney failure with tubular necrosis Current Visit: Yes Status: Acute Plan to address problem: Acute tubular necrosis secondary to sepsis, initiated on HD on 10/16/18. Pt remains non-oliguric, however still with significant azotemia/volume overload, will cont HD on MWF schedule with target UF 1-2L as tolerated. Use 4K bath given persistent hypokalemia. avoid further nephrotoxins, incl. NSAIDs IV contrast as possible. Will monitor I/Os lytes/renal parameters closely and make further recommendations (2) Sepsis Current Visit: Yes Status: Acute Plan to address problem: Continue AB per ID. 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 Continue treatment for both per the infectious disease. 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 Improved. Subjective Date of service: 10/20/18 Principal diagnosis: Severe sepsis; Ac hypoxemic Resp failure; [place]. Pneumonia; Ac encephalopathy Interval history: Pt remains intubated, opening eyes spontaneously, not following commands Objective - Vital Signs Vital signs: Vital Signs - 12hr 10/20/18 10/20/18 10/20/18 05:00 05:01 06:00 Temperature Pulse Rate 96 H 94 H 90 Pulse Rate [ Anterior Bilateral Throughout] Pulse Rate [ Bases] Pulse Rate [ From Monitor] Pulse Rate [ Throughout] Respiratory 20 16 Rate Respiratory Rate [Anterior Bilateral Throughout] Respiratory Rate [Bases] Respiratory Rate [ Throughout] Blood Pressure 116/69 137/86 127/80 O2 Sat by Pulse 100 100 100 Oximetry 10/20/18 10/20/18 10/20/18 07:00 07:54 08:00 Temperature 98.1 F Pulse Rate 91 H 87 87 Pulse Rate [ 90 Anterior Bilateral Throughout] Pulse Rate [ Bases] Pulse Rate [ 87 From Monitor] Pulse Rate [ 87 Throughout] Respiratory 18 18 Rate Respiratory 16 Rate [Anterior Bilateral Throughout] Respiratory Rate [Bases] Respiratory 15 Rate [ Throughout] Blood Pressure 124/78 131/82 135/86 O2 Sat by Pulse 100 100 Oximetry 10/20/18 10/20/18 10/20/18 09:00 09:56 10:00 Temperature Pulse Rate 107 H 99 H 101 H Pulse Rate [ Anterior Bilateral Throughout] Pulse Rate [ Bases] Pulse Rate [ From Monitor] Pulse Rate [ Throughout] Respiratory 23 22 Rate Respiratory Rate [Anterior Bilateral Throughout] Respiratory Rate [Bases] Respiratory Rate [ Throughout] Blood Pressure 153/76 104/61 128/76 O2 Sat by Pulse 99 Oximetry 10/20/18 10/20/18 10/20/18 11:00 12:00 12:17 Temperature 98.0 F Pulse Rate 91 H 91 H 89 Pulse Rate [ Anterior Bilateral Throughout] Pulse Rate [ Bases] Pulse Rate [ 91 H From Monitor] Pulse Rate [ Throughout] Respiratory 18 15 Rate Respiratory Rate [Anterior Bilateral Throughout] Respiratory Rate [Bases] Respiratory Rate [ Throughout] Blood Pressure 124/70 133/79 121/85 O2 Sat by Pulse 100 100 100 Oximetry 10/20/18 10/20/18 10/20/18 13:00 14:00 14:26 Temperature Pulse Rate 85 102 H Pulse Rate [ Anterior Bilateral Throughout] Pulse Rate [ 93 H Bases] Pulse Rate [ From Monitor] Pulse Rate [ Throughout] Respiratory 16 17 Rate Respiratory Rate [Anterior Bilateral Throughout] Respiratory 21 Rate [Bases] Respiratory Rate [ Throughout] Blood Pressure 119/70 112/73 O2 Sat by Pulse 100 89 Oximetry 10/20/18 10/20/18 14:36 16:00 Temperature 100.4 F H Pulse Rate Pulse Rate [ Anterior Bilateral Throughout] Pulse Rate [ 91 H Bases] Pulse Rate [ From Monitor] Pulse Rate [ 91 H Throughout] Respiratory Rate Respiratory Rate [Anterior Bilateral Throughout] Respiratory 21 Rate [Bases] Respiratory 21 Rate [ Throughout] Blood Pressure O2 Sat by Pulse Oximetry - General Appearance General appearance: well-developed, appears stated age, intubated EENT: ATNC, PERRL, mucous membranes moist Neck: no JVD Respiratory: Present: Clear to Ascultation Cardiology: regular, S1S2 Gastrointestinal: normoactive bowel sounds Integumentary: no rash, other (++ edema b/l LE ) Neurologic: other (intubated ) - Lab 10/19/18 14:54 10/19/18 06:15 Most recent lab results Calcium 7.9 mg/dL (8.4-10.2) L 10/19/18 06:15 Phosphorus 8.50 mg/dL (2.5-4.5) H 10/14/18 09:40 Magnesium 2.10 mg/dL (1.7-2.3) 10/14/18 09:40 Urine Creatinine 57.5 mg/dL (0.1-20.0) H 10/11/18 05:40 Urine Sodium 70 mmol/L 10/11/18 05:40 Urine Total Protein 44 mg/dL (5-11.8) H 10/11/18 05:40 Medications & Allergies - Medications Allergies/Adverse Reactions: Allergies No Known Allergies Allergy (Unverified 09/11/18 17:50) Home Medications: Home Medications Medication Instructions Recorded Confirmed Last Taken Type No Known Home Medications [No 10/02/18 10/02/18 Unknown History Reported Home Medications] Active Medications: Generic Name Dose Route Start Last Admin Trade Name Freq PRN Reason Stop Dose Admin Acetaminophen 650 mg 09/11/18 19:30 10/09/18 16:32 Tylenol PO 650 mg Q4H PRN Administration Pain MILD(1-3)/Fever >100.5/RIVERA Acetaminophen 650 mg 09/21/18 07:39 10/07/18 21:15 Tylenol [place] 650 mg Q4H PRN Administration Fever >101 Albuterol 2.5 mg 09/20/18 20:00 10/20/18 14:20 Proventil IH 2.5 mg Q6HRT GIA Administration Amiodarone HCl 200 mg 09/27/18 15:00 10/20/18 09:56 Cordarone PO 200 mg BID GIA Administration Lipase/Protease/Amylase 1 each 09/30/18 12:01 Pancrealen Gibbs 10,500 Unit FEEDTUBE PRN PRN For Clogged Feeding Tube Apixaban 2.5 mg 10/20/18 22:00 Eliquis FEEDTUBE BID GIA Atovaquone 750 mg 09/21/18 10:00 10/20/18 09:57 Mepron PO 750 mg BID GIA Administration Azithromycin 1,200 mg 10/18/18 10:00 10/18/18 10:35 Zithromax PO 1,200 mg Tu GIA Administration Emtricitabine 200 mg 10/13/18 10:00 10/17/18 09:47 Emtriva PO 200 mg Q96H GIA Administration Famotidine 20 mg 10/10/18 10:00 10/20/18 09:56 Pepcid PO 20 mg DAILY GIA Administration Fluconazole 200 mg 10/05/18 12:00 10/20/18 09:57 Diflucan PO 200 mg QDAY GIA Administration Folic Acid 1 mg 10/07/18 10:00 10/20/18 09:56 Folvite PO 1 mg QDAY [facility] Administration Glycopyrrolate 2 mg 10/07/18 18:00 10/20/18 11:45 Robinul PO 2 mg Q6HR GIA Administration Hydrophilic Ointment 1 applic 09/21/18 01:46 09/22/18 03:46 Vaseline Lip Therapy TP 1 applic Q2HR PRN Administration Dry Lips Ganciclovir Sodium 150 mg/ 250 mls @ 100 mls/hr 10/12/18 10:00 10/19/18 13:07 Sodium Chloride IV 100 mls/hr MoWeFr GIA Administration Sodium Chloride 100 mls @ 999 mls/hr 10/17/18 10:39 Nacl 0.9% IV CHERYL PRN Hypotension Levetiracetam 750 mg 10/12/18 22:00 10/20/18 09:55 Keppra PO 750 mg BID GIA Administration Levothyroxine Sodium 25 mcg 09/19/18 06:00 10/20/18 05:29 Synthroid PO 25 mcg DAILY@0600 GIA Administration Metoprolol Tartrate 12.5 mg 10/10/18 13:00 10/20/18 09:56 Lopressor PO 12.5 mg BID GIA Administration Multi-Ingred Cream/Lotion/Oil/Oint 1 applic 09/21/18 01:46 Artificial Tears Ophth Oint OU Q4HR PRN Dry Eye(s) Ondansetron HCl 4 mg 09/11/18 19:30 Zofran IV Q8H PRN Nausea And Vomiting Scopolamine 1 each 09/18/18 18:00 10/18/18 17:18 Transderm-Scop TD 1 each Q3D GIA Administration Simple Syrup 15 ml 10/15/18 10:45 Simple Syrup FEEDTUBE PRN PRN Hypoglycemia Simple Syrup 30 ml 10/15/18 10:45 Simple Syrup FEEDTUBE PRN PRN Hypoglycemia Sodium Bicarbonate 325 mg 10/15/18 10:45 Sodium Bicarbonate FEEDTUBE PRN PRN For Clogged Feeding Tube Sodium Chloride 10 ml 09/11/18 22:00 10/20/18 09:57 Sodium Chloride Flush Syringe 10 Ml IV 10 ml BID GIA Administration Sodium Chloride 10 ml 09/11/18 19:30 Sodium Chloride Flush Syringe 10 Ml IV PRN PRN LINE FLUSH Tenofovir Disoproxil Fumarate 300 mg 10/13/18 10:00 10/17/18 09:46 Viread PO 300 mg Q96H GIA Administration
[2018-10-20] MEDS ORDERED: MORPHINE IV PRN (18:37)
[2018-10-20] MEDS ORDERED: ELIQUIS FEEDTUBE SCH (22:00)
[2018-10-21] MEDS: PROVENTIL IH SCH ×4 (03:01→20:10)
[2018-10-21] MEDS: SYNTHROID PO SCH (06:32)
[2018-10-21] MEDS: ROBINUL PO SCH ×3 (06:32→18:28)
[2018-10-21 06:54] LABS: Calcium 7.9 mg/dL (8.4-10.2)
--- NOTE | 2018-10-21 08:31 | Hem/Onc Progress Note ---
Assessment and Plan 1. Leukopenia. ANC is 0.5. Neutropenic precaution is practical. 2. Anemia. We will investigate. 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 HAART has been started. At this time, there is no fever. 3. Human immunodeficiency virus, on HAART. 4. 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 5. Intubated. 6. On antibiotics for pneumonia. 7. History of ____ that is improved. 8. Looks at you, but does not communicate. 9. History of oral candidiasis. 10. Mention of giardiasis. 11. Encephalopathy. 12. RVR with atrial fibrillation. I will follow the patient during inpatient stay. At this time, his cytopenia is likely secondary to the HIV or the CMV. I will discuss with ID team to see if G-CSF support is an option. 10/07 - d/w ID - reg GCSF ANC improving 0.7 today - will watch low folate - replace 10/09 - moving rt arm - GCSF trial for 2 days 10/10 - heel attacher wood worse - d/w RN reg same - I had spoken to hospitalist - dr reyna - yesterday about this 10/11 - s/p GCSF - not much change in WBC or overall performance - as per RN - plan for trach and PEG heel attacher wood high - nephrology 10/12 - trach - peg not done - as family deciding the GCSF - did not change the WBC 10/13 - wbc 1 - opens eye - non communicative 10/14 - pt moves rt arm - eyes open still on vent - as per info - family is thinking about PEG - trach - they have not consented granix trial for low wbc 10/15 - gcsf trial - poor prognosis due to performance status 10/16 - dialysis cath wbc low - gCSF 10/17 - wbc still low - poor prognosis - ct folic acid for anemia 10/18 - not much improvement - last cbc on 10/16 10/19 - wbc low - moving left toes 10/20 - low counts may be HIV or meds related 10/21 - as per rN - next week trach planned moves rt hand and left toes - Patient Problems (1) Neutropenia Current Visit: Yes Status: Acute Subjective Date of service: 10/21/18 Principal diagnosis: low wbc Interval history: as per RN - next week plan for trach Objective - Exam Narrative Exam: not communicative - Constitutional Vitals: Last Vital Signs Temp 98.4 F 10/21/18 08:00 Pulse 98 H 10/21/18 07:56 Resp 18 10/21/18 07:56 BP 133/72 10/21/18 07:42 Pulse Ox 100 10/21/18 07:42 General appearance: no acute distress, other (on vent) Performance status: 4-completely disabled - EENT ENT: other (orally intubated) Lymph node exam: negative cervical - Respiratory Respiratory effort: Positive: normal Respiratory: bilateral: CTA (poor effort) - Cardiovascular Heart Sounds: Present: S1 & S2 Extremity abnormal: edema - Gastrointestinal General gastrointestinal: Present: soft, non-tender Rectal Exam: deferred - Genitourinary Male genitourinary: Present: deferred - Integumentary Integumentary: warm - Neurologic Neurologic: other (mvoes rt arm and left toes) - Labs Lab Results: Laboratory Results - last 24 hr 10/20/18 10/20/18 10/20/18 12:17 12:53 18:19 POC ABG pH 7.399 POC ABG pCO2 33.3 L POC ABG pO2 107 H POC ABG HCO3 20.6 POC ABG Total CO2 22 POC ABG O2 Sat 98 POC ABG Base Excess -4 FiO2 25 Sodium Potassium Chloride Carbon Dioxide Anion Gap BUN Creatinine Estimated GFR BUN/Creatinine Ratio Glucose POC Glucose 91 89 Calcium 10/20/18 10/21/18 10/21/18 23:53 05:06 06:00 POC ABG pH POC ABG pCO2 POC ABG pO2 POC ABG HCO3 POC ABG Total CO2 POC ABG O2 Sat POC ABG Base Excess FiO2 Sodium 143 Potassium 3.0 L Chloride 100.2 Carbon Dioxide 20 L Anion Gap 26 BUN 94 H Creatinine 6.1 H Estimated GFR 13 BUN/Creatinine Ratio 15 Glucose 85 POC Glucose 81 91 Calcium 7.9 L Medications & Allergies - Medications Allergies/Adverse Reactions: Allergies No Known Allergies Allergy (Unverified 09/11/18 17:50) Home Medications: Home Medications Medication Instructions Recorded Confirmed Last Taken Type No Known Home Medications [No 10/02/18 10/02/18 Unknown History Reported Home Medications] Active Medications: Generic Name Dose Route Start Last Admin Trade Name Freq PRN Reason Stop Dose Admin Acetaminophen 650 mg 09/11/18 19:30 10/09/18 16:32 Tylenol PO 650 mg Q4H PRN Administration Pain MILD(1-3)/Fever >100.5/RIVERA Acetaminophen 650 mg 09/21/18 07:39 10/07/18 21:15 Tylenol [place] 650 mg Q4H PRN Administration Fever >101 Albuterol 2.5 mg 09/20/18 20:00 10/21/18 07:45 Proventil IH 2.5 mg Q6HRT GIA Administration Amiodarone HCl 200 mg 09/27/18 15:00 10/20/18 21:50 Cordarone PO 200 mg BID GIA Administration Lipase/Protease/Amylase 1 each 09/30/18 12:01 Pancreaze 10,500 Unit FEEDTUBE PRN PRN For Clogged Feeding Tube Apixaban 2.5 mg 10/20/18 22:00 10/20/18 21:50 Eliquis FEEDTUBE 2.5 mg BID GIA Administration Atovaquone 750 mg 09/21/18 10:00 10/20/18 21:49 Mepron PO 750 mg BID GIA Administration Azithromycin 1,200 mg 10/18/18 10:00 10/18/18 10:35 Zithromax PO 1,200 mg Tu GIA Administration Emtricitabine 200 mg 10/13/18 10:00 10/17/18 09:47 Emtriva PO 200 mg Q96H GIA Administration Famotidine 20 mg 10/10/18 10:00 10/20/18 09:56 Pepcid PO 20 mg DAILY GIA Administration Fluconazole 200 mg 10/05/18 12:00 10/20/18 09:57 Diflucan PO 200 mg QDAY GIA Administration Folic Acid 1 mg 10/07/18 10:00 10/20/18 09:56 Folvite PO 1 mg QDAY GIA Administration Glycopyrrolate 2 mg 10/07/18 18:00 10/21/18 06:32 Robinul PO 2 mg Q6HR GIA Administration Hydrophilic Ointment 1 applic 09/21/18 01:46 09/22/18 03:46 Vaseline Lip Therapy TP 1 applic Q2HR PRN Administration Dry Lips Ganciclovir Sodium 150 mg/ 250 mls @ 100 mls/hr 10/12/18 10:00 10/19/18 13:07 Sodium Chloride IV 100 mls/hr MoWeFr GIA Administration Sodium Chloride 100 mls @ 999 mls/hr 10/17/18 10:39 Nacl 0.9% IV CHERYL PRN Hypotension Levetiracetam 750 mg 10/12/18 22:00 10/20/18 21:49 Keppra PO 750 mg BID GIA Administration Levothyroxine Sodium 25 mcg 09/19/18 06:00 10/21/18 06:32 Synthroid PO 25 mcg DAILY@0600 GIA Administration Metoprolol Tartrate 12.5 mg 10/10/18 13:00 10/20/18 21:50 Lopressor PO 12.5 mg BID GIA Administration Morphine Sulfate 2 mg 10/20/18 18:37 Morphine IV Q4H PRN Pain, Moderate (4-6) Multi-Ingred Cream/Lotion/Oil/Oint 1 applic 09/21/18 01:46 Artificial Tears Ophth Oint OU Q4HR PRN Dry Eye(s) Ondansetron HCl 4 mg 09/11/18 19:30 Zofran IV Q8H PRN Nausea And Vomiting Scopolamine 1 each 09/18/18 18:00 10/18/18 17:18 Transderm-Scop TD 1 each Q3D GIA Administration Simple Syrup 15 ml 10/15/18 10:45 Simple Syrup FEEDTUBE PRN PRN Hypoglycemia Simple Syrup 30 ml 10/15/18 10:45 Simple Syrup FEEDTUBE PRN PRN Hypoglycemia Sodium Bicarbonate 325 mg 10/15/18 10:45 Sodium Bicarbonate FEEDTUBE PRN PRN For Clogged Feeding Tube Sodium Chloride 10 ml 09/11/18 22:00 10/20/18 23:13 Sodium Chloride Flush Syringe 10 Ml IV 10 ml BID GIA Administration Sodium Chloride 10 ml 09/11/18 19:30 Sodium Chloride Flush Syringe 10 Ml IV PRN PRN LINE FLUSH Tenofovir Disoproxil Fumarate 300 mg 10/13/18 10:00 10/17/18 09:46 Viread PO 300 mg Q96H GIA Administration
[2018-10-21] MEDS ORDERED: POTASSIUM CHLORIDE FEEDTUBE ONE (09:30)
[2018-10-21] MEDS ORDERED: KCL 20MEQ/100ML 20 MEQ/100 ML BAG IV ONE (10:00)
--- NOTE | 2018-10-21 10:56 | Progress Note ---
Assessment and Plan - Patient Problems (1) Acute kidney failure with tubular necrosis Current Visit: Yes Status: Acute Plan to address problem: Acute tubular necrosis secondary to sepsis, initiated on HD on 10/16/18. Pt remains non-oliguric, however still with significant azotemia/volume overload, will cont HD on MWF schedule with target UF 1-2L as tolerated. Use 4K bath given persistent hypokalemia. avoid further nephrotoxins, incl. NSAIDs IV contrast as possible. Will monitor I/Os lytes/renal parameters closely and make further recommendations (2) Sepsis Current Visit: Yes Status: Acute Plan to address problem: Continue AB per ID. 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 Continue treatment for both per the infectious disease. 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 Improved. Subjective Date of service: 10/21/18 Principal diagnosis: low wbc Interval history: Pt remains intubated, opening eyes spontaneously, not following commands Objective - Vital Signs Vital signs: Vital Signs - 12hr 10/20/18 10/20/18 10/20/18 23:00 23:03 23:25 Temperature Pulse Rate 95 H 95 H 94 H Pulse Rate [ Bases] Respiratory 16 Rate Respiratory Rate [Bases] Blood Pressure 128/78 128/78 O2 Sat by Pulse 100 Oximetry 10/20/18 10/20/18 10/21/18 23:31 23:33 00:00 Temperature 99.4 F Pulse Rate 96 H 93 H Pulse Rate [ Bases] Respiratory 17 11 L Rate Respiratory Rate [Bases] Blood Pressure 136/68 136/80 O2 Sat by Pulse 100 97 Oximetry 10/21/18 10/21/18 10/21/18 01:00 02:00 03:00 Temperature Pulse Rate 93 H 95 H 94 H Pulse Rate [ Bases] Respiratory 23 17 17 Rate Respiratory Rate [Bases] Blood Pressure 136/77 130/81 116/69 O2 Sat by Pulse 99 100 97 Oximetry 10/21/18 10/21/18 10/21/18 03:02 03:15 03:16 Temperature 99.8 F H Pulse Rate 93 H Pulse Rate [ 93 H 98 H Bases] Respiratory Rate Respiratory 18 18 Rate [Bases] Blood Pressure 116/69 O2 Sat by Pulse 100 Oximetry 10/21/18 10/21/18 10/21/18 03:23 04:00 05:00 Temperature Pulse Rate 96 H 99 H 96 H Pulse Rate [ Bases] Respiratory 15 17 Rate Respiratory Rate [Bases] Blood Pressure 122/75 122/73 O2 Sat by Pulse 99 99 Oximetry 10/21/18 10/21/18 10/21/18 06:00 07:00 07:42 Temperature Pulse Rate 96 H 99 H 95 H Pulse Rate [ Bases] Respiratory 16 11 L Rate Respiratory Rate [Bases] Blood Pressure 107/77 128/74 133/72 O2 Sat by Pulse 94 97 100 Oximetry 10/21/18 10/21/18 10/21/18 07:45 07:56 08:00 Temperature 98.4 F Pulse Rate Pulse Rate [ 95 H 98 H Bases] Respiratory Rate Respiratory 17 18 Rate [Bases] Blood Pressure O2 Sat by Pulse Oximetry 10/21/18 10/21/18 10/21/18 10:00 10:15 10:30 Temperature 98.4 F Pulse Rate 94 H 94 H 94 H Pulse Rate [ Bases] Respiratory 17 Rate Respiratory Rate [Bases] Blood Pressure 130/80 138/86 129/82 O2 Sat by Pulse Oximetry 10/21/18 10:45 Temperature Pulse Rate 94 H Pulse Rate [ Bases] Respiratory Rate Respiratory Rate [Bases] Blood Pressure 129/78 O2 Sat by Pulse Oximetry - General Appearance General appearance: well-developed, chronically ill, intubated EENT: ATNC, mucous membranes moist Neck: no JVD Respiratory: Present: Decreased Breath Sounds Cardiology: regular, S1S2 Gastrointestinal: normoactive bowel sounds Integumentary: no rash, other (2+ edema b/l LE ) Neurologic: confused, disoriented - Lab 10/19/18 14:54 03/08/19 06:00 Most recent lab results Calcium 7.9 mg/dL (8.4-10.2) L 10/21/18 06:00 Phosphorus 8.50 mg/dL (2.5-4.5) H 10/14/18 09:40 Magnesium 2.10 mg/dL (1.7-2.3) 10/14/18 09:40 Urine Creatinine 57.5 mg/dL (0.1-20.0) H 10/11/18 05:40 Urine Sodium 70 mmol/L 10/11/18 05:40 Urine Total Protein 44 mg/dL (5-11.8) H 10/11/18 05:40 Medications & Allergies - Medications Allergies/Adverse Reactions: Allergies No Known Allergies Allergy (Unverified 09/11/18 17:50) Home Medications: Home Medications Medication Instructions Recorded Confirmed Last Taken Type No Known Home Medications [No 10/02/18 10/02/18 Unknown History Reported Home Medications] Active Medications: Generic Name Dose Route Start Last Admin Trade Name Freq PRN Reason Stop Dose Admin Acetaminophen 650 mg 09/11/18 19:30 10/09/18 16:32 Tylenol PO 650 mg Q4H PRN Administration Pain MILD(1-3)/Fever >100.5/RIVERA Acetaminophen 650 mg 09/21/18 07:39 10/07/18 21:15 Tylenol [place] 650 mg Q4H PRN Administration Fever >101 Albuterol 2.5 mg 09/20/18 20:00 10/21/18 07:45 Proventil IH 2.5 mg Q6HRT GIA Administration Amiodarone HCl 200 mg 09/27/18 15:00 10/20/18 21:50 Cordarone PO 200 mg BID GIA Administration Lipase/Protease/Amylase 1 each 09/30/18 12:01 Pancrealen Gibbs 10,500 Unit FEEDTUBE PRN PRN For Clogged Feeding Tube Apixaban 2.5 mg 10/20/18 22:00 10/20/18 21:50 Eliquis FEEDTUBE 2.5 mg BID GIA Administration Atovaquone 750 mg 09/21/18 10:00 10/20/18 21:49 Mepron PO 750 mg BID GIA Administration Azithromycin 1,200 mg 10/18/18 10:00 10/18/18 10:35 Zithromax PO 1,200 mg Tu GIA Administration Emtricitabine 200 mg 10/13/18 10:00 10/17/18 09:47 Emtriva PO 200 mg Q96H GIA Administration Famotidine 20 mg 10/10/18 10:00 10/20/18 09:56 Pepcid PO 20 mg DAILY GIA Administration Fluconazole 200 mg 10/05/18 12:00 10/20/18 09:57 Diflucan PO 200 mg QDAY GIA Administration Folic Acid 1 mg 10/07/18 10:00 10/20/18 09:56 Folvite PO 1 mg QDAY GIA Administration Glycopyrrolate 2 mg 10/07/18 18:00 10/21/18 06:32 Robinul PO 2 mg Q6HR GIA Administration Hydrophilic Ointment 1 applic 09/21/18 01:46 09/22/18 03:46 Vaseline Lip Therapy TP 1 applic Q2HR PRN Administration Dry Lips Ganciclovir Sodium 150 mg/ 250 mls @ 100 mls/hr 10/12/18 10:00 10/19/18 13:07 Sodium Chloride IV 100 mls/hr MoWeFr GIA Administration Sodium Chloride 100 mls @ 999 mls/hr 10/17/18 10:39 Nacl 0.9% IV CHERYL PRN Hypotension Potassium Chloride 20 meq in 100 mls @ 100 mls/hr 10/21/18 10:00 10/21/18 09:33 Kcl 20meq/100ml IV 10/21/18 10:59 100 mls/hr ONCE ONE Administration Levetiracetam 750 mg 10/12/18 22:00 10/20/18 21:49 Keppra PO 750 mg BID GIA Administration Levothyroxine Sodium 25 mcg 09/19/18 06:00 10/21/18 06:32 Synthroid PO 25 mcg DAILY@0600 [facility] Administration Metoprolol Tartrate 12.5 mg 10/10/18 13:00 10/20/18 21:50 Lopressor PO 12.5 mg BID GIA Administration Morphine Sulfate 2 mg 10/20/18 18:37 Morphine IV Q4H PRN Pain, Moderate (4-6) Multi-Ingred Cream/Lotion/Oil/Oint 1 applic 09/21/18 01:46 Artificial Tears Ophth Oint OU Q4HR PRN Dry Eye(s) Ondansetron HCl 4 mg 09/11/18 19:30 Zofran IV Q8H PRN Nausea And Vomiting Scopolamine 1 each 09/18/18 18:00 10/18/18 17:18 Transderm-Scop TD 1 each Q3D GIA Administration Simple Syrup 15 ml 10/15/18 10:45 Simple Syrup FEEDTUBE PRN PRN Hypoglycemia Simple Syrup 30 ml 10/15/18 10:45 Simple Syrup FEEDTUBE PRN PRN Hypoglycemia Sodium Bicarbonate 325 mg 10/15/18 10:45 Sodium Bicarbonate FEEDTUBE PRN PRN For Clogged Feeding Tube Sodium Chloride 10 ml 09/11/18 22:00 10/20/18 23:13 Sodium Chloride Flush Syringe 10 Ml IV 10 ml BID GIA Administration Sodium Chloride 10 ml 09/11/18 19:30 Sodium Chloride Flush Syringe 10 Ml IV PRN PRN LINE FLUSH Tenofovir Disoproxil Fumarate 300 mg 10/13/18 10:00 10/17/18 09:46 Viread PO 300 mg Q96H GIA Administration
--- NOTE | 2018-10-21 11:38 | Progress Note ---
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) Elevated LFTs Neutropenia Thrombocytopenia (I had an extended discussion with his Sister over the phone and explained the concept of substituted judgement to her; she wants some time to make a decision) - get bilateral lower extremity dopplers - deploy SCD's if negative - stop Apixaban in anticipation of tracheostomy - prn ABG's & CXR's at this point - continue daily SBT's as tolerated - for tracheostomy tentatively on 10/25/18 - now on dialysis and tolerating well so far - continue therapy for CMV encephalitis, neuro syphillis as well as ART - appreciate ID input - continue Robinul & scopolamine for secretion control (secretions improved) - continue to hold all other sedating medications - continue supplemental oxygen to keep sats > 90% - continue bronchodilators with pulmonary hygiene per RT - Continue empiric and targeted anti-infective's per ID recs antibiotics per ID - continue set rate at 12/min - daily SAT's if sedation resumed - continue IV heparin for NSTEMI - IV amiodarone stopped - continue fluconazole for candidiasis - watch for drug-drug interactions - continue enteral nutrition as tolerated - when resumed target sedation for RASS 0 to -1 - PT/OT/ROM exercises as tolerated - mobility protocol for pressure ulcer prophylaxis - continue GI & VTE prophylaxis - continue other care per attending / other consultants ...... re-evaluate in am & prn The high probability of a clinically significant, sudden or life threatening deterioration of the [cardiac, respiratory and neurologic] system(s) required my full and direct attention, intervention and personal management. The aggregate critical care time was [35] minutes. This time is in addition to time spent performing reported procedures but includes the following: [x] Data Review and interpretation [x] Patient assessment and monitoring of vital signs [x] Documentation [x] Medication orders and management Subjective Date of service: 10/21/18 Principal diagnosis: Severe sepsis; Ac hypoxemic Resp failure; [place]. Pneumonia; Ac encephalopathy Interval history: Patient is seen today for: Severe sepsis (present on admission with fever, tachycardia, hypotension and elevated lactate); Acute hypoxemic Respiratory failure; Bilateral pneumonia; Acute encephalopathy (Toxic / Metabolic); Atrial Fibrillation with RVR Seen and examined at bedside; 24hour events reviewed; nursing and respiratory care staff consulted; no adverse overnight events reported to me; resting peacefully in bed; more alert but not always responsive to prompts; tolerating SBT's better; No emesis or overt aspiration; awaiting tracheostomy Objective Vital Signs - 12hr 10/21/18 10/21/18 10/21/18 00:00 01:00 02:00 Temperature Pulse Rate 93 H 93 H 95 H Pulse Rate [ Bases] Respiratory 11 L 23 17 Rate Respiratory Rate [Bases] Blood Pressure 136/80 136/77 130/81 O2 Sat by Pulse 97 99 100 Oximetry 10/21/18 10/21/18 10/21/18 03:00 03:02 03:15 Temperature Pulse Rate 94 H 93 H Pulse Rate [ 93 H 98 H Bases] Respiratory 17 Rate Respiratory 18 18 Rate [Bases] Blood Pressure 116/69 116/69 O2 Sat by Pulse 97 100 Oximetry 10/21/18 10/21/18 10/21/18 03:16 03:23 04:00 Temperature 99.8 F H Pulse Rate 96 H 99 H Pulse Rate [ Bases] Respiratory 15 Rate Respiratory Rate [Bases] Blood Pressure 122/75 O2 Sat by Pulse 99 Oximetry 10/21/18 10/21/18 10/21/18 05:00 06:00 07:00 Temperature Pulse Rate 96 H 96 H 99 H Pulse Rate [ Bases] Respiratory 17 16 11 L Rate Respiratory Rate [Bases] Blood Pressure 122/73 107/77 128/74 O2 Sat by Pulse 99 94 97 Oximetry 10/21/18 10/21/18 10/21/18 07:42 07:45 07:56 Temperature Pulse Rate 95 H Pulse Rate [ 95 H 98 H Bases] Respiratory Rate Respiratory 17 18 Rate [Bases] Blood Pressure 133/72 O2 Sat by Pulse 100 Oximetry 10/21/18 10/21/18 10/21/18 08:00 09:00 10:00 Temperature 98.4 F 98.4 F Pulse Rate 95 H 93 H 93 H Pulse Rate [ Bases] Respiratory 18 17 14 Rate Respiratory Rate [Bases] Blood Pressure 125/73 132/79 130/80 O2 Sat by Pulse 98 Oximetry 10/21/18 10/21/1810/21/19 10:15 10:30 10:45 Temperature Pulse Rate 94 H 94 H 94 H Pulse Rate [ Bases] Respiratory Rate Respiratory Rate [Bases] Blood Pressure 138/86 129/82 129/78 O2 Sat by Pulse Oximetry 10/21/18 10/21/18 11:00 11:15 Temperature Pulse Rate 95 H 95 H Pulse Rate [ Bases] Respiratory Rate Respiratory Rate [Bases] Blood Pressure 128/80 123/81 O2 Sat by Pulse Oximetry Constitutional: lethargic, agitated, appears uncomfortable, other (young looking AAM, normocephalic with mildly increased respiratory effort at rest) Eyes: non-icteric ENT: oropharynx moist, other (ETT 25 cm NIKA) Neck: supple, no lymphadenopathy, other (no thyromegaly) Effort: normal Ascultation: Bilateral: rales, rhonchi (scant) Percussion: Bilateral: not dull Cardiovascular: regular rate and rhythm, other (S1,S2, no murmurs, gallps or rubs) Gastrointestinal: normoactive bowel sounds, soft, non-tender, non-distended Integumentary: rash Extremities: no cyanosis, pulses normal, no ischemia or petechiae, edema (1+) Neurologic: non-focal exam (grossly), pupils equal and round, other (Left sided hemiparesis) Psychiatric: other (unable to assess) CBC and BMP: 10/19/18 14:54 10/21/18 06:00 ABG, PT/INR, D-dimer: ABG POC ABG pH 7.399 (7.35-7.45) 10/20/18 12:17 POC ABG pCO2 33.3 (35-45) L 10/20/18 12:17 POC ABG pO2 107 (80-105) H 10/20/18 12:17 POC ABG HCO3 20.6 10/20/18 12:17 POC ABG Total CO2 22 10/20/18 12:17 POC ABG O2 Sat 98 10/20/18 12:17 PT/INR, D-dimer PT 16.0 Sec. (12.2-14.9) H 10/10/18 08:09 INR 1.20 (0.87-1.13) H 10/10/18 08:09 Abnormal lab findings: Abnormal Labs 09/11/18 09/11/18 09/11/18 18:00 18:00 18:00 WBC 1.9 L* RBC Hgb Hct RDW Plt Count 130 L Seg Neuts % (Manual) Lymphocytes % (Manual) Monocytes % (Manual) 16.0 H Eosinophils % (Manual) Basophils % (Manual) Nucleated RBC % Seg Neutrophils # Man 0.9 L Abs Lymphs (Manual) Lymphocytes # (Manual) 0.5 L Basophils # (Manual) PT INR APTT Heparin Anti-Xa Level POC ABG pH POC ABG pCO2 POC ABG pO2 Sodium 131 L Potassium Chloride Carbon Dioxide 17 L BUN 21 H Creatinine Glucose 126 H POC Glucose Lactic Acid 2.60 H* Calcium 8.1 L Phosphorus Magnesium Iron TIBC Ferritin AST 123 H ALT 115 H Total Creatine Kinase Total Protein Albumin 3.0 L Vitamin B12 Folate TSH Free T4 Urine WBC (Auto) Urine Creatinine Urine Chloride Urine Total Protein CSF VDRL Lymph Enumerat CD4/CD8 Absolute CD3 Count % CD4 Cells Absolute CD4 Count % CD8 Cells Absolute CD19 Count T.pallidum Ab (FTA-ABS) HIV-1 RNA PCR copies/ml HIV-1 RNA (PCR) log Miscellaneous Test 09/11/18 09/13/18 09/13/18 19:01 04:28 07:31 WBC 2.0 L RBC Hgb Hct RDW Plt Count 116 L Seg Neuts % (Manual) Lymphocytes % (Manual) Monocytes % (Manual) 8.0 H Eosinophils % (Manual) Basophils % (Manual) Nucleated RBC % Seg Neutrophils # Man 1.0 L Abs Lymphs (Manual) Lymphocytes # (Manual) 0.5 L Basophils # (Manual) PT INR APTT Heparin Anti-Xa Level POC ABG pH POC ABG pCO2 POC ABG pO2 Sodium Potassium Chloride 110.4 H Carbon Dioxide 19 L BUN Creatinine Glucose POC Glucose Lactic Acid 3.70 H* Calcium 7.9 L Phosphorus Magnesium Iron TIBC Ferritin AST ALT Total Creatine Kinase Total Protein Albumin Vitamin B12 Folate TSH Free T4 Urine WBC (Auto) Urine Creatinine Urine Chloride Urine Total Protein CSF VDRL Lymph Enumerat CD4/CD8 Absolute CD3 Count % CD4 Cells Absolute CD4 Count % CD8 Cells Absolute CD19 Count T.pallidum Ab (FTA-ABS) HIV-1 RNA PCR copies/ml HIV-1 RNA (PCR) log Miscellaneous Test 09/13/18 09/13/18 09/13/18 07:31 12:29 12:29 WBC RBC Hgb Hct RDW Plt Count Seg Neuts % (Manual) Lymphocytes % (Manual) Monocytes % (Manual) Eosinophils % (Manual) Basophils % (Manual) Nucleated RBC % Seg Neutrophils # Man Abs Lymphs (Manual) 309 L Lymphocytes # (Manual) Basophils # (Manual) PT INR APTT Heparin Anti-Xa Level POC ABG pH POC ABG pCO2 POC ABG pO2 Sodium Potassium Chloride Carbon Dioxide BUN Creatinine Glucose POC Glucose Lactic Acid Calcium Phosphorus Magnesium Iron TIBC Ferritin AST 70 H ALT 68 H Total Creatine Kinase Total Protein Albumin 2.5 L Vitamin B12 Folate TSH Free T4 Urine WBC (Auto) Urine Creatinine Urine Chloride Urine Total Protein CSF VDRL Lymph Enumerat CD4/CD8 0.01 L Absolute CD3 Count 220 L % CD4 Cells 1 L Absolute CD4 Count 4 L % CD8 Cells 70 H Absolute CD19 Count 54 L T.pallidum Ab (FTA-ABS) HIV-1 RNA PCR copies/ml 47447 H HIV-1 RNA (PCR) log 4.71 H Miscellaneous Test 09/13/18 09/14/18 09/14/18 12:29 07:17 16:34 WBC RBC Hgb Hct RDW Plt Count Seg Neuts % (Manual) Lymphocytes % (Manual) Monocytes % (Manual) Eosinophils % (Manual) Basophils % (Manual) Nucleated RBC % Seg Neutrophils # Man Abs Lymphs (Manual) Lymphocytes # (Manual) Basophils # (Manual) PT INR APTT Heparin Anti-Xa Level POC ABG pH POC ABG pCO2 POC ABG pO2 Sodium Potassium 3.4 L Chloride Carbon Dioxide 18 L BUN Creatinine Glucose 104 H POC Glucose Lactic Acid Calcium 7.6 L Phosphorus Magnesium Iron TIBC Ferritin AST 49 H ALT Total Creatine Kinase Total Protein Albumin 2.5 L Vitamin B12 Folate TSH Free T4 Urine WBC (Auto) Urine Creatinine Urine Chloride Urine Total Protein CSF VDRL Lymph Enumerat CD4/CD8 Absolute CD3 Count % CD4 Cells Absolute CD4 Count % CD8 Cells Absolute CD19 Count T.pallidum Ab (FTA-ABS) Reactive H HIV-1 RNA PCR copies/ml HIV-1 RNA (PCR) log Miscellaneous Test Flexitest 1 H 09/15/18 09/15/18 09/15/18 05:05 05:05 Unknown WBC 1.6 L* RBC Hgb 10.4 L Hct 31.1 L D RDW Plt Count 113 L Seg Neuts % (Manual) Lymphocytes % (Manual) Monocytes % (Manual) Eosinophils % (Manual) Basophils % (Manual) Nucleated RBC % Seg Neutrophils # Man Abs Lymphs (Manual) Lymphocytes # (Manual) Basophils # (Manual) PT INR APTT Heparin Anti-Xa Level POC ABG pH POC ABG pCO2 POC ABG pO2 Sodium Potassium Chloride 107.9 H Carbon Dioxide 18 L BUN 6 L Creatinine Glucose POC Glucose Lactic Acid Calcium 7.4 L Phosphorus Magnesium Iron TIBC Ferritin AST ALT Total Creatine Kinase Total Protein Albumin Vitamin B12 Folate TSH Free T4 Urine WBC (Auto) Urine Creatinine Urine Chloride Urine Total Protein CSF VDRL Reactive 1:8 H Lymph Enumerat CD4/CD8 Absolute CD3 Count % CD4 Cells Absolute CD4 Count % CD8 Cells Absolute CD19 Count T.pallidum Ab (FTA-ABS) HIV-1 RNA PCR copies/ml HIV-1 RNA (PCR) log Miscellaneous Test 09/16/18 09/16/18 09/16/18 06:55 11:41 11:41 WBC 2.8 L RBC Hgb 10.9 L Hct 33.5 L RDW Plt Count 135 L Seg Neuts % (Manual) Lymphocytes % (Manual) Monocytes % (Manual) Eosinophils % (Manual) Basophils % (Manual) Nucleated RBC % Seg Neutrophils # Man Abs Lymphs (Manual) Lymphocytes # (Manual) Basophils # (Manual) PT INR APTT Heparin Anti-Xa Level POC ABG pH POC ABG pCO2 POC ABG pO2 Sodium Potassium Chloride Carbon Dioxide BUN Creatinine Glucose POC Glucose Lactic Acid Calcium Phosphorus Magnesium Iron TIBC Ferritin AST ALT Total Creatine Kinase Total Protein Albumin Vitamin B12 Folate TSH 4.210 H Free T4 0.72 L Urine WBC (Auto) Urine Creatinine Urine Chloride Urine Total Protein CSF VDRL Lymph Enumerat CD4/CD8 Absolute CD3 Count % CD4 Cells Absolute CD4 Count % CD8 Cells Absolute CD19 Count T.pallidum Ab (FTA-ABS) HIV-1 RNA PCR copies/ml HIV-1 RNA (PCR) log Miscellaneous Test 09/16/18 09/16/18 09/17/18 11:41 15:43 05:13 WBC 2.0 L RBC Hgb 10.9 L Hct 32.7 L RDW Plt Count Seg Neuts % (Manual) Lymphocytes % (Manual) Monocytes % (Manual) Eosinophils % (Manual) Basophils % (Manual) Nucleated RBC % Seg Neutrophils # Man Abs Lymphs (Manual) Lymphocytes # (Manual) Basophils # (Manual) PT INR APTT Heparin Anti-Xa Level POC ABG pH POC ABG pCO2 29.3 L POC ABG pO2 70 L Sodium Potassium Chloride Carbon Dioxide BUN Creatinine Glucose POC Glucose Lactic Acid Calcium Phosphorus Magnesium Iron TIBC Ferritin AST ALT Total Creatine Kinase Total Protein Albumin Vitamin B12 934.5 H Folate TSH Free T4 Urine WBC (Auto) Urine Creatinine Urine Chloride Urine Total Protein CSF VDRL Lymph Enumerat CD4/CD8 Absolute CD3 Count % CD4 Cells Absolute CD4 Count % CD8 Cells Absolute CD19 Count T.pallidum Ab (FTA-ABS) HIV-1 RNA PCR copies/ml HIV-1 RNA (PCR) log Miscellaneous Test 09/17/18 09/17/18 09/18/18 05:13 21:57 12:46 WBC RBC Hgb Hct RDW Plt Count Seg Neuts % (Manual) Lymphocytes % (Manual) Monocytes % (Manual) Eosinophils % (Manual) Basophils % (Manual) Nucleated RBC % Seg Neutrophils # Man Abs Lymphs (Manual) Lymphocytes # (Manual) Basophils # (Manual) PT INR APTT Heparin Anti-Xa Level POC ABG pH POC ABG pCO2 POC ABG pO2 Sodium Potassium Chloride 107.2 H Carbon Dioxide 21 L BUN 3 L Creatinine 0.7 L Glucose POC Glucose 108 H Lactic Acid Calcium 7.9 L Phosphorus Magnesium Iron TIBC Ferritin AST ALT Total Creatine Kinase Total Protein 6.1 L Albumin 2.6 L Vitamin B12 Folate TSH Free T4 0.75 L Urine WBC (Auto) Urine Creatinine Urine Chloride Urine Total Protein CSF VDRL Lymph Enumerat CD4/CD8 Absolute CD3 Count % CD4 Cells Absolute CD4 Count % CD8 Cells Absolute CD19 Count T.pallidum Ab (FTA-ABS) HIV-1 RNA PCR copies/ml HIV-1 RNA (PCR) log Miscellaneous Test 09/18/18 09/19/18 09/19/18 12:46 04:57 04:57 WBC 2.1 L RBC Hgb 11.4 L Hct 34.2 L RDW Plt Count Seg Neuts % (Manual) Lymphocytes % (Manual) Monocytes % (Manual) Eosinophils % (Manual) Basophils % (Manual) Nucleated RBC % Seg Neutrophils # Man Abs Lymphs (Manual) Lymphocytes # (Manual) Basophils # (Manual) PT INR APTT Heparin Anti-Xa Level POC ABG pH POC ABG pCO2 POC ABG pO2 Sodium Potassium Chloride Carbon Dioxide 19 L BUN 6 L Creatinine Glucose POC Glucose Lactic Acid Calcium 7.9 L Phosphorus Magnesium Iron TIBC Ferritin AST ALT Total Creatine Kinase Total Protein Albumin Vitamin B12 Folate TSH 5.190 H Free T4 Urine WBC (Auto) Urine Creatinine Urine Chloride Urine Total Protein CSF VDRL Lymph Enumerat CD4/CD8 Absolute CD3 Count % CD4 Cells Absolute CD4 Count % CD8 Cells Absolute CD19 Count T.pallidum Ab (FTA-ABS) HIV-1 RNA PCR copies/ml HIV-1 RNA (PCR) log Miscellaneous Test 09/19/18 09/19/18 09/20/18 15:00 15:00 05:33 WBC RBC Hgb Hct RDW Plt Count Seg Neuts % (Manual) Lymphocytes % (Manual) Monocytes % (Manual) Eosinophils % (Manual) Basophils % (Manual) Nucleated RBC % Seg Neutrophils # Man Abs Lymphs (Manual) Lymphocytes # (Manual) Basophils # (Manual) PT INR APTT Heparin Anti-Xa Level POC ABG pH POC ABG pCO2 POC ABG pO2 Sodium 136 L Potassium Chloride Carbon Dioxide 19 L BUN 7 L Creatinine Glucose POC Glucose Lactic Acid Calcium Phosphorus Magnesium Iron TIBC Ferritin AST ALT Total Creatine Kinase Total Protein Albumin Vitamin B12 Folate TSH Free T4 Urine WBC (Auto) Urine Creatinine Urine Chloride Urine Total Protein CSF VDRL Reactive 1:4 H Lymph Enumerat CD4/CD8 Absolute CD3 Count % CD4 Cells Absolute CD4 Count % CD8 Cells Absolute CD19 Count T.pallidum Ab (FTA-ABS) HIV-1 RNA PCR copies/ml HIV-1 RNA (PCR) log Miscellaneous Test Flexitest 1 H 09/20/18 09/21/18 09/21/18 06:52 01:06 03:49 WBC 2.5 L RBC Hgb Hct RDW Plt Count Seg Neuts % (Manual) Lymphocytes % (Manual) Monocytes % (Manual) Eosinophils % (Manual) Basophils % (Manual) Nucleated RBC % Seg Neutrophils # Man Abs Lymphs (Manual) Lymphocytes # (Manual) Basophils # (Manual) PT INR APTT Heparin Anti-Xa Level POC ABG pH 7.159 L POC ABG pCO2 32.9 L 70.0 H POC ABG pO2 62 L 254 H Sodium Potassium Chloride Carbon Dioxide BUN Creatinine Glucose POC Glucose Lactic Acid Calcium Phosphorus Magnesium Iron TIBC Ferritin AST ALT Total Creatine Kinase Total Protein Albumin Vitamin B12 Folate TSH Free T4 Urine WBC (Auto) Urine Creatinine Urine Chloride Urine Total Protein CSF VDRL Lymph Enumerat CD4/CD8 Absolute CD3 Count % CD4 Cells Absolute CD4 Count % CD8 Cells Absolute CD19 Count T.pallidum Ab (FTA-ABS) HIV-1 RNA PCR copies/ml HIV-1 RNA (PCR) log Miscellaneous Test 09/21/18 09/21/18 09/21/18 04:15 04:15 04:25 WBC 3.1 L RBC Hgb 11.6 L Hct RDW Plt Count Seg Neuts % (Manual) Lymphocytes % (Manual) Monocytes % (Manual) 12.0 H Eosinophils % (Manual) Basophils % (Manual) Nucleated RBC % Seg Neutrophils # Man 1.6 L Abs Lymphs (Manual) Lymphocytes # (Manual) 0.5 L Basophils # (Manual) PT INR APTT Heparin Anti-Xa Level POC ABG pH POC ABG pCO2 POC ABG pO2 Sodium Potassium 6.1 H* D Chloride Carbon Dioxide 19 L BUN Creatinine Glucose 108 H POC Glucose Lactic Acid Calcium Phosphorus Magnesium Iron TIBC Ferritin AST ALT Total Creatine Kinase 685 H Total Protein Albumin Vitamin B12 Folate TSH Free T4 Urine WBC (Auto) Urine Creatinine Urine Chloride Urine Total Protein CSF VDRL Lymph Enumerat CD4/CD8 Absolute CD3 Count % CD4 Cells Absolute CD4 Count % CD8 Cells Absolute CD19 Count T.pallidum Ab (FTA-ABS) HIV-1 RNA PCR copies/ml HIV-1 RNA (PCR) log Miscellaneous Test 09/21/18 09/21/18 09/21/18 09:59 10:07 11:00 WBC RBC Hgb 11.7 L Hct RDW Plt Count Seg Neuts % (Manual) Lymphocytes % (Manual) Monocytes % (Manual) Eosinophils % (Manual) Basophils % (Manual) Nucleated RBC % Seg Neutrophils # Man Abs Lymphs (Manual) Lymphocytes # (Manual) Basophils # (Manual) PT INR APTT Heparin Anti-Xa Level POC ABG pH 7.301 L POC ABG pCO2 POC ABG pO2 109 H Sodium Potassium 6.5 H* Chloride Carbon Dioxide 18 L BUN Creatinine 2.1 H D Glucose POC Glucose Lactic Acid Calcium 8.1 L Phosphorus Magnesium Iron TIBC Ferritin AST 94 H ALT Total Creatine Kinase Total Protein Albumin 2.8 L Vitamin B12 Folate TSH Free T4 Urine WBC (Auto) Urine Creatinine Urine Chloride Urine Total Protein CSF VDRL Lymph Enumerat CD4/CD8 Absolute CD3 Count % CD4 Cells Absolute CD4 Count % CD8 Cells Absolute CD19 Count T.pallidum Ab (FTA-ABS) HIV-1 RNA PCR copies/ml HIV-1 RNA (PCR) log Miscellaneous Test 09/21/18 09/21/18 09/21/18 15:00 21:54 21:54 WBC RBC Hgb Hct RDW Plt Count Seg Neuts % (Manual) Lymphocytes % (Manual) Monocytes % (Manual) Eosinophils % (Manual) Basophils % (Manual) Nucleated RBC % Seg Neutrophils # Man Abs Lymphs (Manual) Lymphocytes # (Manual) Basophils # (Manual) PT 19.9 H INR 1.65 H APTT 40.9 H Heparin Anti-Xa Level 0.98 H POC ABG pH POC ABG pCO2 POC ABG pO2 Sodium Potassium 5.2 H Chloride Carbon Dioxide BUN Creatinine Glucose POC Glucose Lactic Acid Calcium Phosphorus Magnesium Iron TIBC Ferritin AST ALT Total Creatine Kinase Total Protein Albumin Vitamin B12 Folate TSH Free T4 Urine WBC (Auto) Urine Creatinine Urine Chloride Urine Total Protein CSF VDRL Lymph Enumerat CD4/CD8 Absolute CD3 Count % CD4 Cells Absolute CD4 Count % CD8 Cells Absolute CD19 Count T.pallidum Ab (FTA-ABS) HIV-1 RNA PCR copies/ml HIV-1 RNA (PCR) log Miscellaneous Test 09/21/18 09/22/18 09/22/18 22:57 03:01 05:27 WBC RBC Hgb Hct RDW Plt Count Seg Neuts % (Manual) Lymphocytes % (Manual) Monocytes % (Manual) Eosinophils % (Manual) Basophils % (Manual) Nucleated RBC % Seg Neutrophils # Man Abs Lymphs (Manual) Lymphocytes # (Manual) Basophils # (Manual) PT INR APTT Heparin Anti-Xa Level POC ABG pH POC ABG pCO2 32.7 L POC ABG pO2 Sodium Potassium Chloride Carbon Dioxide BUN Creatinine Glucose POC Glucose 124 H 128 H Lactic Acid Calcium Phosphorus Magnesium Iron TIBC Ferritin AST ALT Total Creatine Kinase Total Protein Albumin Vitamin B12 Folate TSH Free T4 Urine WBC (Auto) Urine Creatinine Urine Chloride Urine Total Protein CSF VDRL Lymph Enumerat CD4/CD8 Absolute CD3 Count % CD4 Cells Absolute CD4 Count % CD8 Cells Absolute CD19 Count T.pallidum Ab (FTA-ABS) HIV-1 RNA PCR copies/ml HIV-1 RNA (PCR) log Miscellaneous Test 09/22/18 09/22/18 09/22/18 07:00 07:00 11:32 WBC 1.8 L* RBC 3.59 L Hgb 10.1 L Hct 30.8 L RDW Plt Count 126 L Seg Neuts % (Manual) Lymphocytes % (Manual) Monocytes % (Manual) Eosinophils % (Manual) Basophils % (Manual) Nucleated RBC % Seg Neutrophils # Man Abs Lymphs (Manual) Lymphocytes # (Manual) Basophils # (Manual) PT INR APTT Heparin Anti-Xa Level POC ABG pH POC ABG pCO2 POC ABG pO2 Sodium Potassium Chloride Carbon Dioxide BUN 27 H Creatinine 2.0 H Glucose 128 H POC Glucose 123 H Lactic Acid Calcium 6.9 L Phosphorus Magnesium Iron TIBC Ferritin AST ALT Total Creatine Kinase Total Protein Albumin Vitamin B12 Folate TSH Free T4 Urine WBC (Auto) Urine Creatinine Urine Chloride Urine Total Protein CSF VDRL Lymph Enumerat CD4/CD8 Absolute CD3 Count % CD4 Cells Absolute CD4 Count % CD8 Cells Absolute CD19 Count T.pallidum Ab (FTA-ABS) HIV-1 RNA PCR copies/ml HIV-1 RNA (PCR) log Miscellaneous Test 09/22/18 09/22/18 09/22/18 15:52 18:18 23:52 WBC RBC Hgb Hct RDW Plt Count Seg Neuts % (Manual) Lymphocytes % (Manual) Monocytes % (Manual) Eosinophils % (Manual) Basophils % (Manual) Nucleated RBC % Seg Neutrophils # Man Abs Lymphs (Manual) Lymphocytes # (Manual) Basophils # (Manual) PT INR APTT Heparin Anti-Xa Level POC ABG pH POC ABG pCO2 48.7 H POC ABG pO2 Sodium Potassium Chloride Carbon Dioxide BUN Creatinine Glucose POC Glucose 110 H 124 H Lactic Acid Calcium Phosphorus Magnesium Iron TIBC Ferritin AST ALT Total Creatine Kinase Total Protein Albumin Vitamin B12 Folate TSH Free T4 Urine WBC (Auto) Urine Creatinine Urine Chloride Urine Total Protein CSF VDRL Lymph Enumerat CD4/CD8 Absolute CD3 Count % CD4 Cells Absolute CD4 Count % CD8 Cells Absolute CD19 Count T.pallidum Ab (FTA-ABS) HIV-1 RNA PCR copies/ml HIV-1 RNA (PCR) log Miscellaneous Test 09/23/18 09/23/18 09/23/18 04:10 05:55 05:55 WBC RBC Hgb 10.0 L Hct 30.3 L RDW Plt Count 117 L Seg Neuts % (Manual) Lymphocytes % (Manual) Monocytes % (Manual) Eosinophils % (Manual) Basophils % (Manual) Nucleated RBC % Seg Neutrophils # Man Abs Lymphs (Manual) Lymphocytes # (Manual) Basophils # (Manual) PT INR APTT Heparin Anti-Xa Level 0.26 L POC ABG pH POC ABG pCO2 POC ABG pO2 144 H Sodium Potassium Chloride Carbon Dioxide BUN Creatinine Glucose POC Glucose Lactic Acid Calcium Phosphorus Magnesium Iron TIBC Ferritin AST ALT Total Creatine Kinase Total Protein Albumin Vitamin B12 Folate TSH Free T4 Urine WBC (Auto) Urine Creatinine Urine Chloride Urine Total Protein CSF VDRL Lymph Enumerat CD4/CD8 Absolute CD3 Count % CD4 Cells Absolute CD4 Count % CD8 Cells Absolute CD19 Count T.pallidum Ab (FTA-ABS) HIV-1 RNA PCR copies/ml HIV-1 RNA (PCR) log Miscellaneous Test 09/23/18 09/23/18 09/23/18 08:10 08:10 23:57 WBC 1.3 L* RBC 3.53 L Hgb 9.9 L Hct 30.0 L RDW Plt Count 119 L Seg Neuts % (Manual) Lymphocytes % (Manual) Monocytes % (Manual) Eosinophils % (Manual) Basophils % (Manual) Nucleated RBC % Seg Neutrophils # Man Abs Lymphs (Manual) Lymphocytes # (Manual) Basophils # (Manual) PT INR APTT Heparin Anti-Xa Level POC ABG pH POC ABG pCO2 POC ABG pO2 Sodium Potassium Chloride Carbon Dioxide BUN Creatinine Glucose 122 H POC Glucose 115 H Lactic Acid Calcium 6.9 L Phosphorus Magnesium Iron TIBC Ferritin AST ALT Total Creatine Kinase Total Protein Albumin Vitamin B12 Folate TSH Free T4 Urine WBC (Auto) Urine Creatinine Urine Chloride Urine Total Protein CSF VDRL Lymph Enumerat CD4/CD8 Absolute CD3 Count % CD4 Cells Absolute CD4 Count % CD8 Cells Absolute CD19 Count T.pallidum Ab (FTA-ABS) HIV-1 RNA PCR copies/ml HIV-1 RNA (PCR) log Miscellaneous Test 09/24/18 09/24/18 09/24/18 12:04 14:42 18:10 WBC RBC Hgb Hct RDW Plt Count Seg Neuts % (Manual) Lymphocytes % (Manual) Monocytes % (Manual) Eosinophils % (Manual) Basophils % (Manual) Nucleated RBC % Seg Neutrophils # Man Abs Lymphs (Manual) Lymphocytes # (Manual) Basophils # (Manual) PT INR APTT Heparin Anti-Xa Level 0.76 H POC ABG pH POC ABG pCO2 POC ABG pO2 Sodium Potassium Chloride Carbon Dioxide BUN Creatinine Glucose POC Glucose 111 H 138 H Lactic Acid Calcium Phosphorus Magnesium Iron TIBC Ferritin AST ALT Total Creatine Kinase Total Protein Albumin Vitamin B12 Folate TSH Free T4 Urine WBC (Auto) Urine Creatinine Urine Chloride Urine Total Protein CSF VDRL Lymph Enumerat CD4/CD8 Absolute CD3 Count % CD4 Cells Absolute CD4 Count % CD8 Cells Absolute CD19 Count T.pallidum Ab (FTA-ABS) HIV-1 RNA PCR copies/ml HIV-1 RNA (PCR) log Miscellaneous Test 09/25/18 09/25/18 09/25/18 03:45 04:24 14:20 WBC RBC Hgb 9.7 L Hct 29.4 L RDW Plt Count 104 L Seg Neuts % (Manual) Lymphocytes % (Manual) Monocytes % (Manual) Eosinophils % (Manual) Basophils % (Manual) Nucleated RBC % Seg Neutrophils # Man Abs Lymphs (Manual) Lymphocytes # (Manual) Basophils # (Manual) PT INR APTT Heparin Anti-Xa Level POC ABG pH 7.460 H POC ABG pCO2 32.9 L POC ABG pO2 Sodium Potassium 3.5 L Chloride 110.3 H Carbon Dioxide BUN Creatinine Glucose 105 H POC Glucose Lactic Acid Calcium 6.7 L Phosphorus Magnesium Iron TIBC Ferritin AST 633 H ALT 481 H Total Creatine Kinase Total Protein 4.8 L D Albumin 1.9 L Vitamin B12 Folate TSH Free T4 Urine WBC (Auto) Urine Creatinine Urine Chloride Urine Total Protein CSF VDRL Lymph Enumerat CD4/CD8 Absolute CD3 Count % CD4 Cells Absolute CD4 Count % CD8 Cells Absolute CD19 Count T.pallidum Ab (FTA-ABS) HIV-1 RNA PCR copies/ml HIV-1 RNA (PCR) log Miscellaneous Test 09/26/18 09/26/18 09/26/18 06:15 06:15 10:43 WBC 1.2 L* RBC 3.32 L Hgb 9.2 L Hct 28.6 L RDW Plt Count 97 L Seg Neuts % (Manual) 24.0 L Lymphocytes % (Manual) 43.0 H Monocytes % (Manual) 19.0 H Eosinophils % (Manual) 8.0 H Basophils % (Manual) 2.0 H Nucleated RBC % 3.0 H Seg Neutrophils # Man 0.0 L Abs Lymphs (Manual) Lymphocytes # (Manual) 0.0 L Basophils # (Manual) PT INR APTT Heparin Anti-Xa Level POC ABG pH 7.459 H POC ABG pCO2 POC ABG pO2 141 H Sodium Potassium Chloride 112.8 H Carbon Dioxide BUN Creatinine Glucose 110 H POC Glucose Lactic Acid Calcium 7.0 L Phosphorus 0.90 L* Magnesium Iron TIBC Ferritin AST 362 H ALT 360 H Total Creatine Kinase Total Protein 4.9 L Albumin 1.5 L Vitamin B12 Folate TSH Free T4 Urine WBC (Auto) Urine Creatinine Urine Chloride Urine Total Protein CSF VDRL Lymph Enumerat CD4/CD8 Absolute CD3 Count % CD4 Cells Absolute CD4 Count % CD8 Cells Absolute CD19 Count T.pallidum Ab (FTA-ABS) HIV-1 RNA PCR copies/ml HIV-1 RNA (PCR) log Miscellaneous Test 09/26/18 09/27/18 09/28/18 13:56 04:11 07:49 WBC RBC Hgb 9.1 L Hct 29.1 L RDW Plt Count 96 L Seg Neuts % (Manual) Lymphocytes % (Manual) Monocytes % (Manual) Eosinophils % (Manual) Basophils % (Manual) Nucleated RBC % Seg Neutrophils # Man Abs Lymphs (Manual) Lymphocytes # (Manual) Basophils # (Manual) PT INR APTT Heparin Anti-Xa Level POC ABG pH POC ABG pCO2 POC ABG pO2 Sodium 146 H Potassium Chloride 111.6 H Carbon Dioxide BUN Creatinine Glucose POC Glucose 135 H Lactic Acid Calcium 7.4 L Phosphorus Magnesium Iron TIBC Ferritin AST ALT Total Creatine Kinase Total Protein Albumin Vitamin B12 Folate TSH Free T4 Urine WBC (Auto) Urine Creatinine Urine Chloride Urine Total Protein CSF VDRL Lymph Enumerat CD4/CD8 Absolute CD3 Count % CD4 Cells Absolute CD4 Count % CD8 Cells Absolute CD19 Count T.pallidum Ab (FTA-ABS) HIV-1 RNA PCR copies/ml HIV-1 RNA (PCR) log Miscellaneous Test 09/28/18 09/29/18 09/29/18 10:43 05:00 05:00 WBC 1.2 L* RBC 3.13 L Hgb 8.6 L Hct 27.3 L RDW Plt Count 137 L Seg Neuts % (Manual) Lymphocytes % (Manual) Monocytes % (Manual) 16.0 H Eosinophils % (Manual) Basophils % (Manual) Nucleated RBC % 4.0 H Seg Neutrophils # Man 0.5 L Abs Lymphs (Manual) Lymphocytes # (Manual) 0.3 L Basophils # (Manual) PT INR APTT Heparin Anti-Xa Level POC ABG pH 7.300 L POC ABG pCO2 53.9 H POC ABG pO2 Sodium 147 H Potassium 3.4 L Chloride 114.5 H Carbon Dioxide BUN Creatinine Glucose POC Glucose Lactic Acid Calcium 7.7 L Phosphorus Magnesium Iron TIBC Ferritin AST 69 H ALT 110 H Total Creatine Kinase Total Protein 5.2 L Albumin 1.9 L Vitamin B12 Folate TSH Free T4 Urine WBC (Auto) Urine Creatinine Urine Chloride Urine Total Protein CSF VDRL Lymph Enumerat CD4/CD8 Absolute CD3 Count % CD4 Cells Absolute CD4 Count % CD8 Cells Absolute CD19 Count T.pallidum Ab (FTA-ABS) HIV-1 RNA PCR copies/ml HIV-1 RNA (PCR) log Miscellaneous Test 09/29/18 09/29/18 09/30/18 06:07 13:22 05:19 WBC 0.9 L* RBC 3.03 L Hgb 8.6 L Hct 25.9 L RDW Plt Count Seg Neuts % (Manual) Lymphocytes % (Manual) Monocytes % (Manual) Eosinophils % (Manual) Basophils % (Manual) Nucleated RBC % Seg Neutrophils # Man Abs Lymphs (Manual) Lymphocytes # (Manual) Basophils # (Manual) PT INR APTT Heparin Anti-Xa Level POC ABG pH POC ABG pCO2 46.9 H POC ABG pO2 Sodium Potassium Chloride Carbon Dioxide BUN Creatinine Glucose POC Glucose 109 H Lactic Acid Calcium Phosphorus Magnesium Iron TIBC Ferritin AST ALT Total Creatine Kinase Total Protein Albumin Vitamin B12 Folate TSH Free T4 Urine WBC (Auto) Urine Creatinine Urine Chloride Urine Total Protein CSF VDRL Lymph Enumerat CD4/CD8 Absolute CD3 Count % CD4 Cells Absolute CD4 Count % CD8 Cells Absolute CD19 Count T.pallidum Ab (FTA-ABS) HIV-1 RNA PCR copies/ml HIV-1 RNA (PCR) log Miscellaneous Test 09/30/18 09/30/18 09/30/18 05:19 11:14 23:28 WBC RBC Hgb Hct RDW Plt Count Seg Neuts % (Manual) Lymphocytes % (Manual) Monocytes % (Manual) Eosinophils % (Manual) Basophils % (Manual) Nucleated RBC % Seg Neutrophils # Man Abs Lymphs (Manual) Lymphocytes # (Manual) Basophils # (Manual) PT INR APTT Heparin Anti-Xa Level 0.72 H POC ABG pH POC ABG pCO2 46.6 H POC ABG pO2 Sodium 150 H Potassium Chloride 115.2 H Carbon Dioxide BUN Creatinine Glucose POC Glucose Lactic Acid Calcium 7.9 L Phosphorus Magnesium Iron TIBC Ferritin AST ALT Total Creatine Kinase Total Protein Albumin Vitamin B12 Folate TSH Free T4 Urine WBC (Auto) Urine Creatinine Urine Chloride Urine Total Protein CSF VDRL Lymph Enumerat CD4/CD8 Absolute CD3 Count % CD4 Cells Absolute CD4 Count % CD8 Cells Absolute CD19 Count T.pallidum Ab (FTA-ABS) HIV-1 RNA PCR copies/ml HIV-1 RNA (PCR) log Miscellaneous Test 10/01/18 10/01/18 10/02/18 04:55 04:55 07:15 WBC 0.9 L* 0.7 L* RBC 3.01 L 2.92 L Hgb 8.4 L 8.4 L Hct 26.0 L 24.9 L RDW Plt Count Seg Neuts % (Manual) Lymphocytes % (Manual) Monocytes % (Manual) Eosinophils % (Manual) Basophils % (Manual) Nucleated RBC % Seg Neutrophils # Man Abs Lymphs (Manual) Lymphocytes # (Manual) Basophils # (Manual) PT INR APTT Heparin Anti-Xa Level POC ABG pH POC ABG pCO2 POC ABG pO2 Sodium 147 H Potassium 3.4 L Chloride 113.1 H Carbon Dioxide BUN 22 H Creatinine Glucose POC Glucose Lactic Acid Calcium 7.3 L Phosphorus Magnesium Iron TIBC Ferritin AST ALT Total Creatine Kinase Total Protein Albumin Vitamin B12 Folate TSH Free T4 Urine WBC (Auto) Urine Creatinine Urine Chloride Urine Total Protein CSF VDRL Lymph Enumerat CD4/CD8 Absolute CD3 Count % CD4 Cells Absolute CD4 Count % CD8 Cells Absolute CD19 Count T.pallidum Ab (FTA-ABS) HIV-1 RNA PCR copies/ml HIV-1 RNA (PCR) log Miscellaneous Test 10/02/18 10/03/18 10/03/18 07:15 06:12 06:12 WBC 0.8 L* RBC 2.96 L Hgb 8.5 L Hct 25.9 L RDW 15.4 H Plt Count Seg Neuts % (Manual) Lymphocytes % (Manual) Monocytes % (Manual) Eosinophils % (Manual) Basophils % (Manual) Nucleated RBC % Seg Neutrophils # Man Abs Lymphs (Manual) Lymphocytes # (Manual) Basophils # (Manual) PT INR APTT Heparin Anti-Xa Level POC ABG pH POC ABG pCO2 POC ABG pO2 Sodium Potassium 3.4 L 3.4 L Chloride 108.3 H Carbon Dioxide BUN Creatinine Glucose POC Glucose Lactic Acid Calcium 7.6 L 7.4 L Phosphorus Magnesium Iron TIBC Ferritin AST ALT Total Creatine Kinase Total Protein Albumin Vitamin B12 Folate TSH Free T4 Urine WBC (Auto) Urine Creatinine Urine Chloride Urine Total Protein CSF VDRL Lymph Enumerat CD4/CD8 Absolute CD3 Count % CD4 Cells Absolute CD4 Count % CD8 Cells Absolute CD19 Count T.pallidum Ab (FTA-ABS) HIV-1 RNA PCR copies/ml HIV-1 RNA (PCR) log Miscellaneous Test 10/03/18 10/03/18 10/04/18 11:45 13:23 01:40 WBC RBC Hgb Hct RDW Plt Count Seg Neuts % (Manual) Lymphocytes % (Manual) Monocytes % (Manual) Eosinophils % (Manual) Basophils % (Manual) Nucleated RBC % Seg Neutrophils # Man Abs Lymphs (Manual) Lymphocytes # (Manual) Basophils # (Manual) PT INR APTT Heparin Anti-Xa Level 1.34 H 0.26 L POC ABG pH POC ABG pCO2 POC ABG pO2 Sodium Potassium Chloride Carbon Dioxide BUN Creatinine Glucose POC Glucose Lactic Acid Calcium Phosphorus Magnesium 1.40 L Iron TIBC Ferritin AST ALT Total Creatine Kinase Total Protein Albumin Vitamin B12 Folate TSH Free T4 Urine WBC (Auto) Urine Creatinine Urine Chloride Urine Total Protein CSF VDRL Lymph Enumerat CD4/CD8 Absolute CD3 Count % CD4 Cells Absolute CD4 Count % CD8 Cells Absolute CD19 Count T.pallidum Ab (FTA-ABS) HIV-1 RNA PCR copies/ml HIV-1 RNA (PCR) log Miscellaneous Test 10/04/18 10/04/18 10/06/18 04:45 04:45 09:40 WBC 0.8 L* RBC 3.11 L Hgb 9.0 L Hct 27.4 L RDW 15.4 H Plt Count Seg Neuts % (Manual) Lymphocytes % (Manual) Monocytes % (Manual) Eosinophils % (Manual) Basophils % (Manual) Nucleated RBC % Seg Neutrophils # Man Abs Lymphs (Manual) Lymphocytes # (Manual) Basophils # (Manual) PT INR APTT Heparin Anti-Xa Level POC ABG pH POC ABG pCO2 POC ABG pO2 Sodium Potassium Chloride Carbon Dioxide BUN Creatinine 0.7 L Glucose POC Glucose Lactic Acid Calcium 7.5 L Phosphorus Magnesium Iron 35 L TIBC 157 L Ferritin AST ALT Total Creatine Kinase Total Protein Albumin Vitamin B12 Folate TSH Free T4 Urine WBC (Auto) Urine Creatinine Urine Chloride Urine Total Protein CSF VDRL Lymph Enumerat CD4/CD8 Absolute CD3 Count % CD4 Cells Absolute CD4 Count % CD8 Cells Absolute CD19 Count T.pallidum Ab (FTA-ABS) HIV-1 RNA PCR copies/ml HIV-1 RNA (PCR) log Miscellaneous Test 10/06/18 10/06/18 10/07/18 09:40 09:40 04:20 WBC 1.1 L* RBC 3.07 L Hgb 9.1 L Hct 27.3 L RDW 20.3 H Plt Count Seg Neuts % (Manual) Lymphocytes % (Manual) Monocytes % (Manual) Eosinophils % (Manual) Basophils % (Manual) Nucleated RBC % Seg Neutrophils # Man 0.7 L Abs Lymphs (Manual) Lymphocytes # (Manual) 0.3 L Basophils # (Manual) PT INR APTT Heparin Anti-Xa Level POC ABG pH POC ABG pCO2 POC ABG pO2 Sodium Potassium Chloride Carbon Dioxide BUN Creatinine Glucose POC Glucose Lactic Acid Calcium Phosphorus Magnesium Iron TIBC Ferritin 1126.0 H AST ALT Total Creatine Kinase Total Protein Albumin Vitamin B12 Folate 6.71 L TSH Free T4 Urine WBC (Auto) Urine Creatinine Urine Chloride Urine Total Protein CSF VDRL Lymph Enumerat CD4/CD8 Absolute CD3 Count % CD4 Cells Absolute CD4 Count % CD8 Cells Absolute CD19 Count T.pallidum Ab (FTA-ABS) HIV-1 RNA PCR copies/ml HIV-1 RNA (PCR) log Miscellaneous Test 10/07/18 10/07/18 10/09/18 04:20 15:38 04:20 WBC 1.1 L* RBC 3.35 L Hgb 9.9 L Hct 30.1 L RDW 21.4 H Plt Count Seg Neuts % (Manual) 19.0 L Lymphocytes % (Manual) 42.0 H Monocytes % (Manual) 18.0 H Eosinophils % (Manual) 15.0 H Basophils % (Manual) 2.0 H Nucleated RBC % Seg Neutrophils # Man 0.2 L Abs Lymphs (Manual) Lymphocytes # (Manual) 0.5 L Basophils # (Manual) PT INR APTT Heparin Anti-Xa Level POC ABG pH 7.516 H POC ABG pCO2 32.1 L POC ABG pO2 Sodium Potassium Chloride Carbon Dioxide BUN Creatinine 0.7 L Glucose POC Glucose Lactic Acid Calcium 7.9 L Phosphorus Magnesium Iron TIBC Ferritin AST ALT Total Creatine Kinase Total Protein 5.5 L Albumin 2.2 L Vitamin B12 Folate TSH Free T4 Urine WBC (Auto) Urine Creatinine Urine Chloride Urine Total Protein CSF VDRL Lymph Enumerat CD4/CD8 Absolute CD3 Count % CD4 Cells Absolute CD4 Count % CD8 Cells Absolute CD19 Count T.pallidum Ab (FTA-ABS) HIV-1 RNA PCR copies/ml HIV-1 RNA (PCR) log Miscellaneous Test 10/09/18 10/09/18 10/09/18 04:20 11:48 17:31 WBC RBC Hgb Hct RDW Plt Count Seg Neuts % (Manual) Lymphocytes % (Manual) Monocytes % (Manual) Eosinophils % (Manual) Basophils % (Manual) Nucleated RBC % Seg Neutrophils # Man Abs Lymphs (Manual) Lymphocytes # (Manual) Basophils # (Manual) PT INR APTT Heparin Anti-Xa Level POC ABG pH POC ABG pCO2 POC ABG pO2 Sodium Potassium 5.4 H Chloride Carbon Dioxide 21 L BUN 55 H 72 H Creatinine 3.8 H D 4.5 H Glucose 118 H POC Glucose 124 H Lactic Acid Calcium 8.3 L 8.2 L Phosphorus Magnesium Iron TIBC Ferritin AST ALT Total Creatine Kinase Total Protein Albumin Vitamin B12 Folate TSH Free T4 Urine WBC (Auto) Urine Creatinine Urine Chloride Urine Total Protein CSF VDRL Lymph Enumerat CD4/CD8 Absolute CD3 Count % CD4 Cells Absolute CD4 Count % CD8 Cells Absolute CD19 Count T.pallidum Ab (FTA-ABS) HIV-1 RNA PCR copies/ml HIV-1 RNA (PCR) log Miscellaneous Test 10/10/18 10/10/18 10/10/18 08:09 08:35 10:54 WBC 1.1 L* RBC 3.16 L Hgb 9.6 L Hct 28.8 L RDW 21.2 H Plt Count Seg Neuts % (Manual) 27.0 L Lymphocytes % (Manual) Monocytes % (Manual) 9.0 H Eosinophils % (Manual) 18.0 H Basophils % (Manual) 12.0 H Nucleated RBC % Seg Neutrophils # Man 0.3 L Abs Lymphs (Manual) Lymphocytes # (Manual) 0.3 L Basophils # (Manual) PT 16.0 H INR 1.20 H APTT Heparin Anti-Xa Level POC ABG pH POC ABG pCO2 POC ABG pO2 Sodium Potassium 5.5 H Chloride Carbon Dioxide 20 L BUN 83 H Creatinine 5.5 H Glucose 119 H POC Glucose Lactic Acid Calcium Phosphorus Magnesium Iron TIBC Ferritin AST ALT Total Creatine Kinase Total Protein Albumin Vitamin B12 Folate TSH Free T4 Urine WBC (Auto) Urine Creatinine Urine Chloride Urine Total Protein CSF VDRL Lymph Enumerat CD4/CD8 Absolute CD3 Count % CD4 Cells Absolute CD4 Count % CD8 Cells Absolute CD19 Count T.pallidum Ab (FTA-ABS) HIV-1 RNA PCR copies/ml HIV-1 RNA (PCR) log Miscellaneous Test 10/10/18 10/10/18 10/11/18 Unknown Unknown 05:20 WBC 1.2 L* RBC 2.89 L Hgb 8.7 L Hct 26.0 L RDW 20.1 H Plt Count Seg Neuts % (Manual) Lymphocytes % (Manual) 8.0 L Monocytes % (Manual) 12.0 H Eosinophils % (Manual) 24.0 H Basophils % (Manual) 4.0 H Nucleated RBC % Seg Neutrophils # Man 0.6 L Abs Lymphs (Manual) Lymphocytes # (Manual) 0.1 L Basophils # (Manual) PT INR APTT Heparin Anti-Xa Level POC ABG pH POC ABG pCO2 POC ABG pO2 Sodium Potassium Chloride Carbon Dioxide BUN Creatinine Glucose POC Glucose Lactic Acid Calcium Phosphorus Magnesium Iron TIBC Ferritin AST ALT Total Creatine Kinase Total Protein Albumin Vitamin B12 Folate TSH Free T4 Urine WBC (Auto) Urine Creatinine Urine Chloride Urine Total Protein CSF VDRL Reactive 1:2 H Lymph Enumerat CD4/CD8 Absolute CD3 Count % CD4 Cells Absolute CD4 Count % CD8 Cells Absolute CD19 Count T.pallidum Ab (FTA-ABS) HIV-1 RNA PCR copies/ml HIV-1 RNA (PCR) log Miscellaneous Test Flexitest 1 H 10/11/18 10/11/18 10/11/18 05:20 05:40 05:40 WBC RBC Hgb Hct RDW Plt Count Seg Neuts % (Manual) Lymphocytes % (Manual) Monocytes % (Manual) Eosinophils % (Manual) Basophils % (Manual) Nucleated RBC % Seg Neutrophils # Man Abs Lymphs (Manual) Lymphocytes # (Manual) Basophils # (Manual) PT INR APTT Heparin Anti-Xa Level POC ABG pH POC ABG pCO2 POC ABG pO2 Sodium Potassium Chloride Carbon Dioxide 20 L BUN 102 H Creatinine 6.7 H Glucose POC Glucose Lactic Acid Calcium 8.3 L Phosphorus Magnesium Iron TIBC Ferritin AST ALT Total Creatine Kinase Total Protein Albumin Vitamin B12 Folate TSH Free T4 Urine WBC (Auto) 8.0 H Urine Creatinine 57.5 H Urine Chloride 35.1 L Urine Total Protein 44 H CSF VDRL Lymph Enumerat CD4/CD8 Absolute CD3 Count % CD4 Cells Absolute CD4 Count % CD8 Cells Absolute CD19 Count T.pallidum Ab (FTA-ABS) HIV-1 RNA PCR copies/ml HIV-1 RNA (PCR) log Miscellaneous Test 10/11/18 10/12/18 10/12/18 16:41 03:30 03:30 WBC 0.9 L* RBC 2.78 L Hgb 8.3 L Hct 25.1 L RDW 19.9 H Plt Count Seg Neuts % (Manual) Lymphocytes % (Manual) Monocytes % (Manual) Eosinophils % (Manual) 20.0 H Basophils % (Manual) Nucleated RBC % Seg Neutrophils # Man 0.5 L Abs Lymphs (Manual) Lymphocytes # (Manual) 0.3 L Basophils # (Manual) PT INR APTT Heparin Anti-Xa Level POC ABG pH 7.318 L POC ABG pCO2 POC ABG pO2 Sodium Potassium Chloride Carbon Dioxide 18 L BUN 111 H Creatinine 7.3 H Glucose POC Glucose Lactic Acid Calcium 7.9 L Phosphorus Magnesium Iron TIBC Ferritin AST ALT Total Creatine Kinase Total Protein Albumin Vitamin B12 Folate TSH Free T4 Urine WBC (Auto) Urine Creatinine Urine Chloride Urine Total Protein CSF VDRL Lymph Enumerat CD4/CD8 Absolute CD3 Count % CD4 Cells Absolute CD4 Count % CD8 Cells Absolute CD19 Count T.pallidum Ab (FTA-ABS) HIV-1 RNA PCR copies/ml HIV-1 RNA (PCR) log Miscellaneous Test 10/12/18 10/13/18 10/13/18 13:30 04:00 04:05 WBC 1.0 L* RBC 2.68 L Hgb 8.1 L Hct 24.3 L RDW 19.7 H Plt Count Seg Neuts % (Manual) 36.7 L Lymphocytes % (Manual) Monocytes % (Manual) Eosinophils % (Manual) 16.7 H Basophils % (Manual) 16.7 H Nucleated RBC % Seg Neutrophils # Man 0.4 L Abs Lymphs (Manual) Lymphocytes # (Manual) 0.2 L Basophils # (Manual) 0.2 H PT INR APTT Heparin Anti-Xa Level POC ABG pH 7.336 L POC ABG pCO2 31.5 L POC ABG pO2 122 H Sodium Potassium Chloride Carbon Dioxide 17 L BUN 118 H Creatinine 7.8 H Glucose 102 H POC Glucose Lactic Acid Calcium 7.8 L Phosphorus Magnesium Iron TIBC Ferritin AST ALT Total Creatine Kinase Total Protein Albumin Vitamin B12 Folate TSH Free T4 Urine WBC (Auto) Urine Creatinine Urine Chloride Urine Total Protein CSF VDRL Lymph Enumerat CD4/CD8 Absolute CD3 Count % CD4 Cells Absolute CD4 Count % CD8 Cells Absolute CD19 Count T.pallidum Ab (FTA-ABS) HIV-1 RNA PCR copies/ml HIV-1 RNA (PCR) log Miscellaneous Test 10/13/18 10/14/18 10/14/18 18:44 00:01 05:20 WBC RBC Hgb Hct RDW Plt Count Seg Neuts % (Manual) Lymphocytes % (Manual) Monocytes % (Manual) Eosinophils % (Manual) Basophils % (Manual) Nucleated RBC % Seg Neutrophils # Man Abs Lymphs (Manual) Lymphocytes # (Manual) Basophils # (Manual) PT INR APTT Heparin Anti-Xa Level POC ABG pH POC ABG pCO2 POC ABG pO2 Sodium Potassium Chloride Carbon Dioxide BUN Creatinine Glucose POC Glucose 141 H 134 H 171 H Lactic Acid Calcium Phosphorus Magnesium Iron TIBC Ferritin AST ALT Total Creatine Kinase Total Protein Albumin Vitamin B12 Folate TSH Free T4 Urine WBC (Auto) Urine Creatinine Urine Chloride Urine Total Protein CSF VDRL Lymph Enumerat CD4/CD8 Absolute CD3 Count % CD4 Cells Absolute CD4 Count % CD8 Cells Absolute CD19 Count T.pallidum Ab (FTA-ABS) HIV-1 RNA PCR copies/ml HIV-1 RNA (PCR) log Miscellaneous Test 10/14/18 10/14/18 10/14/18 09:39 09:40 11:37 WBC RBC Hgb Hct RDW Plt Count Seg Neuts % (Manual) Lymphocytes % (Manual) Monocytes % (Manual) Eosinophils % (Manual) Basophils % (Manual) Nucleated RBC % Seg Neutrophils # Man Abs Lymphs (Manual) Lymphocytes # (Manual) Basophils # (Manual) PT INR APTT Heparin Anti-Xa Level POC ABG pH POC ABG pCO2 POC ABG pO2 Sodium 147 H Potassium 3.4 L Chloride 108.1 H Carbon Dioxide 16 L BUN 124 H Creatinine 6.7 H Glucose 144 H POC Glucose 164 H Lactic Acid Calcium 7.8 L Phosphorus 8.50 H Magnesium Iron TIBC Ferritin AST ALT Total Creatine Kinase Total Protein Albumin Vitamin B12 Folate TSH Free T4 Urine WBC (Auto) Urine Creatinine Urine Chloride Urine Total Protein CSF VDRL Lymph Enumerat CD4/CD8 Absolute CD3 Count % CD4 Cells Absolute CD4 Count % CD8 Cells Absolute CD19 Count T.pallidum Ab (FTA-ABS) HIV-1 RNA PCR copies/ml HIV-1 RNA (PCR) log Miscellaneous Test 10/14/18 10/14/18 10/15/18 Unknown Unknown 00:05 WBC 0.5 L* RBC 2.80 L Hgb 8.2 L Hct 25.2 L RDW 19.7 H Plt Count Seg Neuts % (Manual) Lymphocytes % (Manual) 10.0 L Monocytes % (Manual) Eosinophils % (Manual) 10.0 H Basophils % (Manual) Nucleated RBC % Seg Neutrophils # Man 0.4 L Abs Lymphs (Manual) Lymphocytes # (Manual) 0.1 L Basophils # (Manual) PT INR APTT Heparin Anti-Xa Level POC ABG pH POC ABG pCO2 POC ABG pO2 Sodium Potassium Chloride Carbon Dioxide 13 L BUN 126 H Creatinine 7.7 H Glucose 153 H POC Glucose 190 H Lactic Acid Calcium 7.8 L Phosphorus Magnesium Iron TIBC Ferritin AST ALT Total Creatine Kinase Total Protein Albumin Vitamin B12 Folate TSH Free T4 Urine WBC (Auto) Urine Creatinine Urine Chloride Urine Total Protein CSF VDRL Lymph Enumerat CD4/CD8 Absolute CD3 Count % CD4 Cells Absolute CD4 Count % CD8 Cells Absolute CD19 Count T.pallidum Ab (FTA-ABS) HIV-1 RNA PCR copies/ml HIV-1 RNA (PCR) log Miscellaneous Test 10/15/18 10/15/18 10/15/18 04:15 04:15 05:03 WBC 0.8 L* RBC 2.73 L Hgb 8.2 L Hct 24.4 L RDW 18.8 H Plt Count Seg Neuts % (Manual) Lymphocytes % (Manual) Monocytes % (Manual) Eosinophils % (Manual) Basophils % (Manual) Nucleated RBC % Seg Neutrophils # Man Abs Lymphs (Manual) Lymphocytes # (Manual) Basophils # (Manual) PT INR APTT Heparin Anti-Xa Level POC ABG pH POC ABG pCO2 POC ABG pO2 Sodium 148 H Potassium 2.9 L* Chloride 108.5 H Carbon Dioxide 17 L BUN 127 H Creatinine 6.1 H Glucose 154 H POC Glucose 170 H Lactic Acid Calcium 7.7 L Phosphorus Magnesium Iron TIBC Ferritin AST ALT Total Creatine Kinase Total Protein 6.0 L Albumin 2.3 L Vitamin B12 Folate TSH Free T4 Urine WBC (Auto) Urine Creatinine Urine Chloride Urine Total Protein CSF VDRL Lymph Enumerat CD4/CD8 Absolute CD3 Count % CD4 Cells Absolute CD4 Count % CD8 Cells Absolute CD19 Count T.pallidum Ab (FTA-ABS) HIV-1 RNA PCR copies/ml HIV-1 RNA (PCR) log Miscellaneous Test 10/15/18 10/15/18 10/15/18 12:23 17:42 17:49 WBC RBC Hgb Hct RDW Plt Count Seg Neuts % (Manual) Lymphocytes % (Manual) Monocytes % (Manual) Eosinophils % (Manual) Basophils % (Manual) Nucleated RBC % Seg Neutrophils # Man Abs Lymphs (Manual) Lymphocytes # (Manual) Basophils # (Manual) PT INR APTT Heparin Anti-Xa Level POC ABG pH POC ABG pCO2 POC ABG pO2 Sodium 146 H Potassium 3.0 L Chloride 109.4 H Carbon Dioxide 16 L BUN 124 H Creatinine 5.6 H Glucose 162 H POC Glucose 180 H 173 H Lactic Acid Calcium 7.5 L Phosphorus Magnesium Iron TIBC Ferritin AST ALT Total Creatine Kinase Total Protein Albumin Vitamin B12 Folate TSH Free T4 Urine WBC (Auto) Urine Creatinine Urine Chloride Urine Total Protein CSF VDRL Lymph Enumerat CD4/CD8 Absolute CD3 Count % CD4 Cells Absolute CD4 Count % CD8 Cells Absolute CD19 Count T.pallidum Ab (FTA-ABS) HIV-1 RNA PCR copies/ml HIV-1 RNA (PCR) log Miscellaneous Test 10/15/18 10/16/18 10/16/18 23:56 05:37 07:50 WBC 1.1 L* RBC 2.70 L Hgb 8.0 L Hct 24.4 L RDW 18.9 H Plt Count Seg Neuts % (Manual) Lymphocytes % (Manual) Monocytes % (Manual) 8.0 H Eosinophils % (Manual) Basophils % (Manual) Nucleated RBC % Seg Neutrophils # Man 0.7 L Abs Lymphs (Manual) Lymphocytes # (Manual) 0.2 L Basophils # (Manual) PT INR APTT Heparin Anti-Xa Level POC ABG pH POC ABG pCO2 POC ABG pO2 Sodium Potassium Chloride Carbon Dioxide BUN Creatinine Glucose POC Glucose 164 H 152 H Lactic Acid Calcium Phosphorus Magnesium Iron TIBC Ferritin AST ALT Total Creatine Kinase Total Protein Albumin Vitamin B12 Folate TSH Free T4 Urine WBC (Auto) Urine Creatinine Urine Chloride Urine Total Protein CSF VDRL Lymph Enumerat CD4/CD8 Absolute CD3 Count % CD4 Cells Absolute CD4 Count % CD8 Cells Absolute CD19 Count T.pallidum Ab (FTA-ABS) HIV-1 RNA PCR copies/ml HIV-1 RNA (PCR) log Miscellaneous Test 10/16/18 10/16/18 10/16/18 07:50 12:35 18:00 WBC RBC Hgb Hct RDW Plt Count Seg Neuts % (Manual) Lymphocytes % (Manual) Monocytes % (Manual) Eosinophils % (Manual) Basophils % (Manual) Nucleated RBC % Seg Neutrophils # Man Abs Lymphs (Manual) Lymphocytes # (Manual) Basophils # (Manual) PT INR APTT Heparin Anti-Xa Level POC ABG pH POC ABG pCO2 POC ABG pO2 Sodium 147 H Potassium 3.0 L Chloride Carbon Dioxide 15 L BUN 143 H Creatinine 6.2 H Glucose 182 H POC Glucose 122 H 160 H Lactic Acid Calcium 8.1 L Phosphorus Magnesium Iron TIBC Ferritin AST ALT Total Creatine Kinase Total Protein Albumin Vitamin B12 Folate TSH Free T4 Urine WBC (Auto) Urine Creatinine Urine Chloride Urine Total Protein CSF VDRL Lymph Enumerat CD4/CD8 Absolute CD3 Count % CD4 Cells Absolute CD4 Count % CD8 Cells Absolute CD19 Count T.pallidum Ab (FTA-ABS) HIV-1 RNA PCR copies/ml HIV-1 RNA (PCR) log Miscellaneous Test 10/16/18 10/17/18 10/17/18 23:32 05:03 11:32 WBC RBC Hgb Hct RDW Plt Count Seg Neuts % (Manual) Lymphocytes % (Manual) Monocytes % (Manual) Eosinophils % (Manual) Basophils % (Manual) Nucleated RBC % Seg Neutrophils # Man Abs Lymphs (Manual) Lymphocytes # (Manual) Basophils # (Manual) PT INR APTT Heparin Anti-Xa Level POC ABG pH POC ABG pCO2 POC ABG pO2 Sodium Potassium Chloride Carbon Dioxide BUN Creatinine Glucose POC Glucose 131 H 112 H 149 H Lactic Acid Calcium Phosphorus Magnesium Iron TIBC Ferritin AST ALT Total Creatine Kinase Total Protein Albumin Vitamin B12 Folate TSH Free T4 Urine WBC (Auto) Urine Creatinine Urine Chloride Urine Total Protein CSF VDRL Lymph Enumerat CD4/CD8 Absolute CD3 Count % CD4 Cells Absolute CD4 Count % CD8 Cells Absolute CD19 Count T.pallidum Ab (FTA-ABS) HIV-1 RNA PCR copies/ml HIV-1 RNA (PCR) log Miscellaneous Test 10/19/18 10/19/18 10/19/18 04:00 06:15 14:54 WBC 0.7 L* 0.7 L* RBC 2.77 L 2.77 L Hgb 7.9 L 8.3 L Hct 24.7 L 24.6 L RDW 19.4 H 19.2 H Plt Count 112 L 105 L Seg Neuts % (Manual) Lymphocytes % (Manual) Monocytes % (Manual) 17.0 H 16.0 H Eosinophils % (Manual) 6.0 H Basophils % (Manual) 2.0 H Nucleated RBC % Seg Neutrophils # Man 0.3 L 0.3 L Abs Lymphs (Manual) Lymphocytes # (Manual) 0.2 L 0.2 L Basophils # (Manual) PT INR APTT Heparin Anti-Xa Level POC ABG pH POC ABG pCO2 POC ABG pO2 Sodium Potassium 2.9 L* Chloride Carbon Dioxide 19 L BUN 107 H Creatinine 5.9 H Glucose POC Glucose Lactic Acid Calcium 7.9 L Phosphorus Magnesium Iron TIBC Ferritin AST 54 H ALT Total Creatine Kinase Total Protein 5.7 L Albumin 2.5 L Vitamin B12 Folate TSH Free T4 Urine WBC (Auto) Urine Creatinine Urine Chloride Urine Total Protein CSF VDRL Lymph Enumerat CD4/CD8 Absolute CD3 Count % CD4 Cells Absolute CD4 Count % CD8 Cells Absolute CD19 Count T.pallidum Ab (FTA-ABS) HIV-1 RNA PCR copies/ml HIV-1 RNA (PCR) log Miscellaneous Test 10/20/18 10/20/18 10/21/18 05:34 12:17 06:00 WBC RBC Hgb Hct RDW Plt Count Seg Neuts % (Manual) Lymphocytes % (Manual) Monocytes % (Manual) Eosinophils % (Manual) Basophils % (Manual) Nucleated RBC % Seg Neutrophils # Man Abs Lymphs (Manual) Lymphocytes # (Manual) Basophils # (Manual) PT INR APTT Heparin Anti-Xa Level POC ABG pH POC ABG pCO2 33.3 L POC ABG pO2 107 H Sodium Potassium 3.0 L Chloride Carbon Dioxide 20 L BUN 94 H Creatinine 6.1 H Glucose POC Glucose 113 H Lactic Acid Calcium 7.9 L Phosphorus Magnesium Iron TIBC Ferritin AST ALT Total Creatine Kinase Total Protein Albumin Vitamin B12 Folate TSH Free T4 Urine WBC (Auto) Urine Creatinine Urine Chloride Urine Total Protein CSF VDRL Lymph Enumerat CD4/CD8 Absolute CD3 Count % CD4 Cells Absolute CD4 Count % CD8 Cells Absolute CD19 Count T.pallidum Ab (FTA-ABS) HIV-1 RNA PCR copies/ml HIV-1 RNA (PCR) log Miscellaneous Test Allied health notes reviewed: nursing
[2018-10-21] MEDS ORDERED: WATER FOR INJ (PF) ONE (11:40)
[2018-10-21] MEDS ORDERED: CATHFLO IV ONE (11:55)
--- NOTE | 2018-10-21 11:56 | Progress Note ---
Assessment and Plan Cultures: 09/11/2018 blood culture: no growth 09/13/2018 serum cryptococcus ag neg 09/14/2018 CSF cryptococcus ag neg 09/14/2018 stool Nona 09/15/2018 stool +Giardia ag 09/19/2018 CSF cryptococcus ag neg 09/21/2018 tracheal aspirate culture: Nona albicans 09/23/2018 blood culture: No growth 09/23/2018 Fungal blood culture: no growth thus far 10/09/2018 blood culture: No growth A/P: 33 y/o male with no PMH; admitted on 09/11/2018 due to 4 days-AMS/behavioral changes, nausea, vomiting, diarrhea, weight loss and cough: 1) Low grade fevers: resolved ? likely IRIS related (ART started on 09/30) versus NGT-associated sinusitis/mastoiditis versus CMV encephalitis. shock resolved. Completed 10 days of Ceftriaxone, off since 10/03/2018. 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 WBC remains low could be from CMV v/s ganciclovir. Clinically better - CMV DNA PCR 09/16/2018 is 1,058,978, 6 log - CMV DNA PCR 09/26/2018 is 710K, 5.85 log - CMV DNA PCR 10/03/2018 is 262K, 5.4 log 3) Acute respiratory failure: still on the vent minimal settings, mainly due to mental status issues. PJP DFA negative. CXR stable without pneumonia. 4) Acute encephalopathy: slighltly better; possibly from neurosyphilis and CMV confirmed encephalitis v/s metabolic etiology. Of note, MRI did not show ventriculitis. CSF YAYO virus DNA PCR neg. Toxo IgG negative. He has received 20 days of Pen G IV and Ganciclovir with minimal improvement, still somnolent and nystagmus noted ? neurosyphilis treatement failure ? other etiologies like metabolic, CVA. Discussed with neuro Dr Nazario EEG x 2 no epileptic activity - "Up to 4 EEGs over several months may be needed to capture interictal epileptiform activity". - repeat LP 10/10/3018 WBC 10, RBC 22K (traumatic), glu 47, prot 84 from 194, VDRL reactive 1:2 - Seizures reported on 10/09-10/10 - CT head done showed mild atrophy. No acute intracranial abnormalities. Paranasal sinus disease and new opacification of multiple mastoid air cells on the right and a few on the left suggesting acute mastoiditis. - MRI brain repeat 10/10 significant bilateral mastoiditis, generalized brain atrophy and stable paranasal sinusitis - CSF CMV DNA PCR on 10/10/2018 is 43,564 4.6 log 5) Neurosyphilis: CSF VDRL positive, off Ceftriaxone and back on IV Penicillin completed 21 days 6) Diarrhea: likely due to Giardiasis as Giardia antigen positive in stool, in immunocompromised patient. Completed several days of Flagyl, stopped on 10/03/2018. 7) Oral candidiasis: on fluconazole, will need to continue as prophylaxis till immune reconstitution. 8) A.fib: cardiology following. On Amiodarone. 9) HIV/AIDS: newly diagnosed. Risk factor is MSM behavior. CD4=4. VL=50,700. 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 We started him on ART on 09/30/2018, watch closely for IRIS. 10) Neutropenia: likely from HIV/CMV myelosuppression. Also probably worse from ganciclovir. r/o disseminated MAC, thus far cultures negative. 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 started on HD 12) NGT-associated sinusitis/mastoiditis, fully treated for 7 days. NGT changed to OGT. Recs: - continue IV Ganciclovir D30 at 5 mg/kg 3 times a week - renally adjusted, continue till CMV PCR is <200 - renal on board - all antibiotics are renally adjusted for CrCl < 10 - f/u serum CMV DNA PCR ordered 10/17 - continue atovaquone and azithromycin prophylaxis - continue fluconazole 200 mg daily PO as prophylaxis - continue HAART: given renal function issues, will discontinue Tenofovir and switch to Darunavir + Norvir. Continue Emtricitabine and dolutegravir. - repeat HIV RNA PCR and CD4 count along with HIV Genotype to hopefully also look at any archived Yana - monitor daily CBC, BMP - s/p neupogen 1 dose on 10/05/2018, hematology on board agree with additional Neupogen as needed from ID standpoint Kairav Lopez, MD [facility] C: [phone] O: [phone] F: [phone] Subjective Date of service: 10/21/18 Principal diagnosis: low wbc Interval history: Awake. Tolerating HD. Does obey some commands. Remains on the vent. Objective - Exam Narrative Exam: Physical Exam: Constitutional: intubated, on the event, awake and following commands Head, Ears, Nose: Normocephalic, atraumatic. Eyes: Conjunctivae/corneas clear. No icterus. No ptosis. Neck: Supple, no meningeal signs Oral: intubated. Cardiovascular: S1, S2 normal. Respiratory: Good air entry, clear to auscultation bilaterally GI: Soft, bowel sounds normal. No peritoneal signs. Musculoskeletal: No pedal edema, no cyanosis. Skin: No rash or abscess Hem/Lymphatic: No palpable cervical or supraclavicular nodes. No lymphangitis Psych: calm, without agitation Neurological: intubated, on the vent, awake, following basic commands - Constitutional Vitals: Vital Signs Temp Pulse Resp BP Pulse Ox 98.4 F 95 H 14 123/81 98 10/21/18 10:00 10/21/18 11:15 10/21/18 10:00 10/21/18 11:15 10/21/18 09:00 Temperature -Last 24 Hours Temperature 98.4 F Temperature 98.4 F Temperature 99.8 F Temperature 99.4 F Temperature 98.7 F Temperature 100.4 F Temperature 98.0 F - Labs CBC & Chem 7: 10/19/18 14:54 10/21/18 06:00 Labs: Abnormal lab results 10/20/18 10/21/18 Range/Units 12:17 06:00 POC ABG pCO2 33.3 L (35-45) POC ABG pO2 107 H (80-105) Potassium 3.0 L (3.6-5.0) mmol/L Carbon Dioxide 20 L (22-30) mmol/L BUN 94 H (9-20) mg/dL Creatinine 6.1 H (0.8-1.5) mg/dL Calcium 7.9 L (8.4-10.2) mg/dL
--- NOTE | 2018-10-21 12:30 | Progress Note ---
Assessment and Plan Assessment and plan: ARF - Patient's creatinine level is trending up - nephrology is following and he started on hemodialysis 10/16/18. Acute hypoxemic respiratory failure - Patient has pneumonia and altered mental status - Patient is intubated and on mechanical ventilation - Trach and PEG per surgery. Disseminated CMV viremia: -Treated with IV ganciclovir and currently he is on prophylaxis Toxic metabolic encephalopathy. 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 Of note, MRI did not show ventriculitis. A. fib with RVR. Converted to NSR. cont Amiodarone and metoprolol. Amiodarone decreased to 200 mg per cardiology Rate controlled Neurosyphilis: CSF VDRL positive, patient finished a course of IV penicillin 21 days Diarrhea. Resolved, etiology likely secondary to Giardia. Giardia antigen positive in stool. Completed a course of Flagyl. Oral candidiasis. Fluconazole HIV/AIDS. New Diagnosis. Continue on HAART per ID continue atovaquone and azithromycin prophylaxis Neutropenia. 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 Additional dose of Neupogen per hematology. NGT associated sinusitis/mastoiditis. Patient fully treated. Continue OGT Prognosis poor. The high probability of a clinically significant, sudden or life threatening deterioration of the [neurological, respiratory and cardiac] system(s) required my full and direct attention, intervention and personal management. The aggregate critical care time was [33] minutes. This time is in addition to time spent performing reported procedures but includes the following: [x] Data Review and interpretation [x] Patient assessment and monitoring of vital signs [x] Documentation [x] Medication orders and management History Interval history: Patient is 33 yo initially presented with diarrhea, found to have pneumonia, sepsis, HIV/AIDS(new diagnosis) with CD4 count of 4. He was started on abx for PJP. His mental status has worsened with confusion, lethargy. LP done . He was diagnosed with neurosyphilis. Started on Penicillin. Closest family is sister in [place], and dr. Baltazar spoke to her several times about diagnosis but did not tell her about HIV/AIDS because of patient confidentiality. The patient decompensated on 09/20/18 with acute hypoxemic respiratory failure and worsening toxic metabolic encephalopathy requiring transfer to ICU and intubation. He now remains on mechanical ventilation. The patient was also noted to develop SVT requiring amiodarone drip as well as heparin drip. Severe Sepsis. Etiology secondary to bacterial pneumonia +/- gastroenteritis with newly diagnosed with HIV. Fevers have re-emerged. Repeat blood cx per ID. the patient was initiated on hemodialysis 10/16/18 for renal failure secondary to ATN from severe sepsis. Hospitalist Physical - Constitutional Vitals: Temp Pulse Resp BP Pulse Ox 98.4 F 95 H 14 135/87 99 10/21/18 10:00 10/21/18 12:02 10/21/18 10:00 10/21/18 12:02 10/21/18 12:02 General appearance: Present: mild distress, other (orally intubated, minimal response--right side spontaneous movement) - EENT Eyes: Present: PERRL, EOM intact ENT: hearing intact, clear oral mucosa, dentition normal - Neck Neck: Present: supple, normal ROM - Respiratory Respiratory effort: normal Respiratory: bilateral: CTA - Cardiovascular Rhythm: regular Heart Sounds: Present: S1 & S2. Absent: gallop, rub - Extremities Extremities: no ischemia, No edema, Full ROM - Abdominal General gastrointestinal: soft, non-tender, non-distended, normal bowel sounds - Integumentary Integumentary: Present: clear, warm, dry - Neurologic Neurologic: CNII-XII intact, moves all extremities Results - Labs CBC & Chem 7: 10/19/18 14:54 10/21/18 06:00 Labs: Laboratory Last Values WBC 0.7 K/mm3 (4.5-11.0) L* 10/19/18 14:54 RBC 2.77 M/mm3 (3.65-5.03) L 10/19/18 14:54 Hgb 8.3 gm/dl (11.8-15.2) L 10/19/18 14:54 Hct 24.6 % (35.5-45.6) L 10/19/18 14:54 MCV 89 fl (84-94) 10/19/18 14:54 MCH 30 pg (28-32) 10/19/18 14:54 MCHC 34 % (32-34) 10/19/18 14:54 RDW 19.2 % (13.2-15.2) H 10/19/18 14:54 Plt Count 105 K/mm3 (140-440) L 10/19/18 14:54 [place] % (Auto) [place] Chain Offbearer 09/29/18 05:00 Eos % (Auto) [employer] Chain Offbearer 10/13/18 04:05 Baso % (Auto) [place] Chain Offbearer 10/13/18 04:05 Add Manual Diff Complete 10/19/18 14:54 Total Counted 50 10/19/18 14:54 Seg Neutrophils % [place] Chain Offbearer 10/16/18 07:50 Seg Neuts % (Manual) 46.0 % (40.0-70.0) 10/19/18 14:54 Band Neutrophils % 2.0 % 10/19/18 14:54 Lymphocytes % (Manual) 32.0 % (13.4-35.0) 10/19/18 14:54 Reactive Lymphs % (Man) 0 % 10/19/18 14:54 Monocytes % (Manual) 16.0 % (0.0-7.3) H 10/19/18 14:54 Eosinophils % (Manual) 2.0 % (0.0-4.3) 10/19/18 14:54 Basophils % (Manual) 2.0 % (0.0-1.8) H 10/19/18 14:54 Metamyelocytes % 0 % 10/19/18 14:54 Myelocytes % 0 % 10/19/18 14:54 Promyelocytes % 0 % 10/19/18 14:54 Blast Cells % 0 % 10/19/18 14:54 Nucleated RBC % Not Reportable 10/19/18 14:54 Seg Neutrophils # Man 0.3 K/mm3 (1.8-7.7) L 10/19/18 14:54 Band Neutrophils # 0.0 K/mm3 10/19/18 14:54 Abs Lymphs (Manual) 309 cells/uL (850-3900) L 09/13/18 12:29 Lymphocytes # (Manual) 0.2 K/mm3 (1.2-5.4) L 10/19/18 14:54 Abs React Lymphs (Man) 0.0 K/mm3 10/19/18 14:54 Monocytes # (Manual) 0.1 K/mm3 (0.0-0.8) 10/19/18 14:54 Eosinophils # (Manual) 0.0 K/mm3 (0.0-0.4) 10/19/18 14:54 Basophils # (Manual) 0.0 K/mm3 (0.0-0.1) 10/19/18 14:54 Metamyelocytes # 0.0 K/mm3 10/19/18 14:54 Myelocytes # 0.0 K/mm3 10/19/18 14:54 Promyelocytes # 0.0 K/mm3 10/19/18 14:54 Blast Cells # 0.0 K/mm3 10/19/18 14:54 WBC Morphology Not Reportable 10/19/18 14:54 Hypersegmented Neuts Not Reportable 10/19/18 14:54 Hyposegmented Neuts Not Reportable 10/19/18 14:54 Hypogranular Neuts Not Reportable 10/19/18 14:54 Smudge Cells Not Reportable 10/19/18 14:54 Toxic Granulation Not Reportable 10/19/18 14:54 Toxic Vacuolation Not Reportable 10/19/18 14:54 Dohle Bodies Not Reportable 10/19/18 14:54 Pelger-Huet Anomaly Not Reportable 10/19/18 14:54 Giovanna Rods Not Reportable 10/19/18 14:54 Platelet Estimate Consistent w auto 10/19/18 14:54 Clumped Platelets Not Reportable 10/19/18 14:54 Plt Clumps, EDTA Not Reportable 10/19/18 14:54 Large Platelets Not Reportable 10/19/18 14:54 Giant Platelets Not Reportable 10/19/18 14:54 Platelet Satelliting Not Reportable 10/19/18 14:54 Plt Morphology Comment Not Reportable 10/19/18 14:54 RBC Morphology Not Reportable 10/19/18 14:54 Dimorphic RBCs Not Reportable 10/19/18 14:54 Polychromasia Not Reportable 10/19/18 14:54 Hypochromasia Not Reportable 10/19/18 14:54 Poikilocytosis Not Reportable 10/19/18 14:54 Anisocytosis 1+ 10/19/18 14:54 Microcytosis Not Reportable 10/19/18 14:54 Macrocytosis Not Reportable 10/19/18 14:54 Spherocytes Not Reportable 10/19/18 14:54 Pappenheimer Bodies Not Reportable 10/19/18 14:54 Sickle Cells Not Reportable 10/19/18 14:54 Target Cells Not Reportable 10/19/18 14:54 Tear Drop Cells Not Reportable 10/19/18 14:54 Ovalocytes Not Reportable 10/19/18 14:54 Stomatocytes 1+ 09/29/18 05:00 Helmet Cells Not Reportable 10/19/18 14:54 [place] Bodies Not Reportable 10/19/18 14:54 [place] Rings Not Reportable 10/19/18 14:54 [place] Cells Not Reportable 10/19/18 14:54 Bite Cells Not Reportable 10/19/18 14:54 Crenated Cell Not Reportable 10/19/18 14:54 Elliptocytes Not Reportable 10/19/18 14:54 Acanthocytes (Spur) Not Reportable 10/19/18 14:54 Rouleaux Not Reportable 10/19/18 14:54 Hemoglobin C Crystals Not Reportable 10/19/18 14:54 Schistocytes Not Reportable 10/19/18 14:54 Malaria parasites Not Reportable 10/19/18 14:54 Kieran Bodies Not Reportable 10/19/18 14:54 Hem Pathologist Commnt No 10/19/18 14:54 PT 16.0 Sec. (12.2-14.9) H 10/10/18 08:09 INR 1.20 (0.87-1.13) H 10/10/18 08:09 APTT 40.9 Sec. (24.2-36.6) H 09/21/18 15:00 Heparin Anti-Xa Level 0.35 U.I./ml (0.3-0.7) 10/05/18 10:19 POC ABG pH 7.399 (7.35-7.45) 10/20/18 12:17 POC ABG pCO2 33.3 (35-45) L 10/20/18 12:17 POC ABG pO2 107 (80-105) H 10/20/18 12:17 POC ABG HCO3 20.6 10/20/18 12:17 POC ABG Total CO2 22 10/20/18 12:17 POC ABG O2 Sat 98 10/20/18 12:17 POC ABG Base Excess -4 10/20/18 12:17 FiO2 25 % 10/20/18 12:17 Sodium 143 mmol/L (137-145) 10/21/18 06:00 Potassium 3.0 mmol/L (3.6-5.0) L 10/21/18 06:00 Chloride 100.2 mmol/L (98-107) 10/21/18 06:00 Carbon Dioxide 20 mmol/L (22-30) L 10/21/18 06:00 Anion Gap 26 mmol/L 10/21/18 06:00 BUN 94 mg/dL (9-20) H 10/21/18 06:00 Creatinine 6.1 mg/dL (0.8-1.5) H 10/21/18 06:00 Estimated GFR 13 ml/min 10/21/18 06:00 BUN/Creatinine Ratio 15 % 10/21/18 06:00 Glucose 85 mg/dL (75-100) 10/21/18 06:00 POC Glucose 98 (70-105) 10/21/18 11:38 Lactic Acid 0.90 mmol/L (0.7-2.0) 09/11/18 20:17 Calcium 7.9 mg/dL (8.4-10.2) L 10/21/18 06:00 Phosphorus 8.50 mg/dL (2.5-4.5) H 10/14/18 09:40 Magnesium 2.10 mg/dL (1.7-2.3) 10/14/18 09:40 Iron 35 ug/dL (49-181) L 10/06/18 09:40 TIBC 157 mcg/dL (250-450) L 10/06/18 09:40 Ferritin 1126.0 ng/mL (13.0-400.0) H 10/06/18 09:40 Total Bilirubin 0.30 mg/dL (0.1-1.2) 10/19/18 06:15 Direct Bilirubin < 0.2 mg/dL (0-0.2) 09/13/18 07:31 AST 54 units/L (5-40) H 10/19/18 06:15 ALT 36 units/L (7-56) 10/19/18 06:15 Alkaline Phosphatase 57 units/L (35-129) 10/19/18 06:15 Ammonia 27.0 umol/L (25-60) 10/03/18 13:23 Total Creatine Kinase 113 units/L (55-170) 10/11/18 05:20 CK-MB (CK-2) 2.6 ng/mL (0.0-4.0) 10/11/18 05:20 CK-MB (CK-2) Rel Index 0.5 (0-4) 09/21/18 04:25 NT-Pro-B Natriuret Pep 145.9 pg/mL (0-450) 09/18/18 16:07 Total Protein 5.7 g/dL (6.3-8.2) L 10/19/18 06:15 Albumin 2.5 g/dL (3.9-5) L 10/19/18 06:15 Albumin/Globulin Ratio 0.8 % 10/19/18 06:15 Vitamin B12 934.5 pg/mL (211-911) H 09/16/18 11:41 Folate 6.71 ng/mL (7.3-26.0) L 10/06/18 09:40 TSH 5.190 mlU/mL (0.270-4.200) H 09/18/18 12:46 Free T4 0.75 ng/dL (0.76-1.46) L 09/18/18 12:46 Urine Color Yellow (Yellow) 10/11/18 05:40 Urine Turbidity Slightly-cloudy (Clear) 10/11/18 05:40 Urine pH 5.0 (5.0-7.0) 10/11/18 05:40 Ur Specific [place] 1.012 (1.003-1.030) 10/11/18 05:40 Urine Protein 30 mg/dl mg/dL (Negative) 10/11/18 05:40 Urine Glucose (UA) Neg mg/dL (Negative) 10/11/18 05:40 Urine Ketones Neg mg/dL (Negative) 10/11/18 05:40 Urine Blood Mod (Negative) 10/11/18 05:40 Urine Nitrite Neg (Negative) 10/11/18 05:40 Urine Bilirubin Neg (Negative) 10/11/18 05:40 Urine Urobilinogen < 2.0 mg/dL (<2.0) 10/11/18 05:40 Ur Leukocyte Esterase Neg (Negative) 10/11/18 05:40 Urine WBC (Auto) 8.0 /HPF (0.0-6.0) H 10/11/18 05:40 Urine RBC (Auto) 45.0 /HPF (0.0-6.0) 10/11/18 05:40 U Epithel Cells (Auto) 2.0 /HPF (0-13.0) 10/11/18 05:40 Urine Bacteria (Auto) 1+ /HPF (Negative) 10/11/18 05:40 Urine Mucus Few /HPF 10/11/18 05:40 Urine Creatinine 57.5 mg/dL (0.1-20.0) H 10/11/18 05:40 Protein/Creatinin Ratio 0.77 10/11/18 05:40 Urine Sodium 70 mmol/L 10/11/18 05:40 Urine Chloride 35.1 mmolL (110-250) L 10/11/18 05:40 Urine Total Protein 44 mg/dL (5-11.8) H 10/11/18 05:40 CSF Appearance Bloody 10/10/18 Unknown CSF Color Red 10/10/18 Unknown CSF WBC 10 /mm3 (1-10) 10/10/18 Unknown CSF RBC 87654 /mm3 (0-0) 10/10/18 Unknown CSF Seg Neutrophils 14.0 % (0-6) 10/10/18 Unknown CSF Lymphocytes % 44.0 % (40-80) 10/10/18 Unknown CSF Reactive Lymphs 0 % 10/10/18 Unknown CSF Monocytes % 38.0 % (15-45) 10/10/18 Unknown CSF Eosinophils % 4.0 % 10/10/18 Unknown CSF Basophils 0 % 10/10/18 Unknown CSF Pathologist Review C 10/10/18 Unknown CSF Glucose 47 mg/dL 10/10/18 Unknown CSF Total Protein 84 mg/dL 10/10/18 Unknown CSF VDRL Reactive 1:2 (Nonreactive) H 10/10/18 Unknown Vancomycin Trough 14.3 ug/mL (5.0-20.0) 09/25/18 14:45 Random Vancomycin 10.7 ug/mL (0-40.0) 10/12/18 03:30 Urine Opiates Screen Presumptive negative 09/17/18 15:52 Urine Methadone Screen Presumptive negative 09/17/18 15:52 Ur Barbiturates Screen Presumptive negative 09/17/18 15:52 Ur Phencyclidine Scrn Presumptive negative 09/17/18 15:52 Ur Amphetamines Screen Presumptive negative 09/17/18 15:52 U Benzodiazepines Scrn Presumptive negative 09/17/18 15:52 Urine Cocaine Screen Presumptive negative 09/17/18 15:52 U Marijuana (THC) Screen Presumptive negative 09/17/18 15:52 Drugs of Abuse Note Disclamer 09/17/18 15:52 Proteinase 3 (PR3) Ab <1.0 AI (<1.0) 10/12/18 09:46 Myeloperoxidase Ab <1.0 AI (<1.0) 10/12/18 09:46 Complement C3 184 mg/dL (82-185) 10/12/18 09:46 Complement C4 45 mg/dL (15-53) 10/12/18 09:46 Lymph Enumerat CD4/CD8 0.01 (0.86-5.00) L 09/13/18 12:29 % CD3 Cells 71 % (57-85) 09/13/18 12:29 Absolute CD3 Count 220 cells/uL (840-3060) L 09/13/18 12:29 % CD4 Cells 1 % (30-61) L 09/13/18 12:29 Absolute CD4 Count 4 cells/uL (490-1740) L 09/13/18 12:29 % CD8 Cells 70 % (12-42) H 09/13/18 12:29 Absolute CD8 Count 216 cells/uL (180-1170) 09/13/18 12:29 % CD19 Cells 17 % (6-29) 09/13/18 12:29 Absolute CD19 Count 54 cells/uL (110-660) L 09/13/18 12:29 RPR Titer 1:16 09/13/18 12:29 RPR Reactive (Nonreactive) 09/13/18 12:29 T.pallidum Ab (FTA-ABS) Reactive (Nonreactive) H 09/14/18 16:34 C. difficile Toxin A&B Negative (Negative) 09/12/18 05:30 CMV DNA PCR log copy center associate/mL See scanned results 10/03/18 06:12 Hepatitis A IgM Ab Non-reactive (NonReactive) 09/13/18 12:29 Hep Bs Antigen Non-reactive (Negative) 09/13/18 12:29 Hep B Core IgM Ab Non-reactive (NonReactive) 09/13/18 12:29 Hepatitis C Antibody Non-reactive (NonReactive) 09/13/18 12:29 HIV-1 Antibody See scanned result 09/11/18 19:14 HIV-1 RNA PCR copies/ml 06796 Copies/mL H 09/13/18 12:29 HIV-1 RNA (PCR) log 4.71 Log cps/mL H 09/13/18 12:29 HIV-2 Ab (Immunoblot) See scanned result 09/11/18 19:14 HIV 1&2 Antibody Rapid Reactive (Non React) 09/11/18 19:14 HIV P24 Antigen Non react (Non React) 09/11/18 19:14 Influenza A (Rapid) Negative (Negative) 09/13/18 16:05 Influenza A (RT-PCR) Negative (Negative) 09/13/18 16:05 Influenza B (Rapid) Negative (Negative) 09/13/18 16:05 Influenza B (RT-PCR) Negative (Negative) 09/13/18 16:05 Toxoplasma IgG Ab <7.20 IU/mL (<7.20) 09/16/18 12:09 Miscellaneous Test Flexitest 1 H 10/10/18 Unknown Nutrition/Malnutrition Assess - Dietary Evaluation Nutrition/Malnutrition Findings: Nutrition Notes Start: 09/12/18 17:45 Freq: Status: Active Protocol: Document 10/20/18 14:10 (Rec: 10/20/18 14:24 [email or web address]) Co-Sign 10/20/18 14:10 LP Nutrition Notes Initial or Follow up Reassessment Current Diagnosis Acute Kidney Injury,Sepsis, Respiratory Failure Other Pertinent Diagnosis On HD, HIV, bilat pneu, gastroenteritis, encephalopathy Current Diet Vital AF at 60 ml/hr Labs/Tests From 10/19: K: 2.9 BUN: 107 Cr: 5.9 Pertinent Medications Lopressor Height 6 ft Weight 120.8 kg [place] Body Weight (kg) 80.90 BMI 36.1 Subjective/Other Information Pt. f/u for stable TF, renal labs. Observed Vital AF running at 60 ml/hr. Per RN, pt still tolerating TF well. BUN and Cr are high but trending down. Percent of energy/protein needs met: 89%/89% Burn Absent Trauma Absent #2 Nutrition Diagnosis Inadequate oral intake Diagnosis Progress(for reassessment Continues documentation) #1 Nutrition Diagnosis Malnutrition Diagnosis Progress(for reassessment Continues documentation) Is patient on ventilator? Yes Is Patient Ambulatory and/or Out of Bed No REE-([facility]-confined to bed) 2630.916 Kcal/Kg value to use for calculation 16 Approximate Energy Requirements Using 1933 kcal/Kg Calculation Used for Recommendations Kcal/kg Additional Notes Pro needs: 162 g/day (2g/kg IBW) Fluid: 1 ml/kcal Nutrition Intervention Change Diet Order: Continue TF Nutrition Support: Vital AF 1.2 at 60ml/hr Flush with 100ml q4h Kcal 1,728 Protein (gm) 108 Fluid (mL) 1,203 Goal #1 Continue to meet at least 80% of energy and 65% of protein needs due to renal function. Anticipated Discharge Needs: Unable to determine at this time Follow-Up By: 10/24/18 Additional Comments F/u for stable TF, renal labs
[2018-10-21] MEDS: CYTOVENE IV SCH (14:23)
[2018-10-21] MEDS: NACL 0.9% IV SCH (14:23)
[2018-10-21] MEDS: KEPPRA PO SCH ×2 (14:24→22:14)
[2018-10-21] MEDS: LOPRESSOR PO SCH ×2 (14:25→22:14)
[2018-10-21] MEDS: PEPCID PO SCH (14:26)
[2018-10-21] MEDS: FOLVITE PO SCH (14:26)
[2018-10-21] MEDS: MEPRON PO SCH ×2 (14:27→22:13)
[2018-10-21] MEDS: DIFLUCAN PO SCH (14:27)
[2018-10-21] MEDS: TIVICAY PO SCH (14:28)
[2018-10-21] MEDS: EMTRIVA PO SCH (14:29)
[2018-10-21] MEDS: SODIUM CHLORIDE FLUSH SYRINGE 10 ML IV SCH ×2 (14:30→22:15)
[2018-10-21] MEDS: PREZISTA PO SCH (14:57)
[2018-10-21] MEDS: NORVIR PO SCH (14:58)
--- NOTE | 2018-10-21 17:32 | Vascular Lab Report ---
PROCEDURE: VL VENOUS DUPLEX LE BILAT TECHNIQUE: Ultrasound bilateral lower extremity veins. Color Doppler evaluation HISTORY: Bilateral lower extremity swelling COMPARISONS: FINDINGS: Deep venous system of the lower extremities from the common femoral through the visualized proximal c casper veins demonstrates normal sonographic appearance. There is normal vascular flow waveform with nor mal compressibility IMPRESSION: No evidence for deep venous thrombosis. This document is electronically signed by Colin Eduardo MD., October 21 2018 05:29:41 PM ET
[2018-10-21] MEDS: SODIUM CHLORIDE FLUSH SYRINGE 10 ML IV PRN (18:16)
[2018-10-21] MEDS: TRANSDERM-SCOP TD SCH (18:22)
[2018-10-21] MEDS ORDERED: NACL 0.9 (PRIMING MACHINE ONLY DIALYSIS) MC ONE (19:49)
[2018-10-22] MEDS: ROBINUL PO SCH ×5 (00:40→23:34)
[2018-10-22] MEDS: PROVENTIL IH SCH ×4 (02:18→20:12)
[2018-10-22] MEDS: SYNTHROID PO SCH (06:19)
--- NOTE | 2018-10-22 09:10 | Hem/Onc Progress Note ---
Assessment and Plan 1. Leukopenia. ANC is 0.5. Neutropenic precaution is practical. 2. Anemia. We will investigate. 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 HAART has been started. At this time, there is no fever. 3. Human immunodeficiency virus, on HAART. 4. 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 5. Intubated. 6. On antibiotics for pneumonia. 7. History of ____ that is improved. 8. Looks at you, but does not communicate. 9. History of oral candidiasis. 10. Mention of giardiasis. 11. Encephalopathy. 12. RVR with atrial fibrillation. I will follow the patient during inpatient stay. At this time, his cytopenia is likely secondary to the HIV or the CMV. I will discuss with ID team to see if G-CSF support is an option. 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 - nephrology 10/12 - trach - peg not done - as family deciding the GCSF - did not change the WBC 10/13 - wbc 1 - opens eye - non communicative 10/14 - pt moves rt arm - eyes open still on vent - as per info - family is thinking about PEG - trach - they have not consented granix trial for low wbc 10/15 - gcsf trial - poor prognosis due to performance status 10/16 - dialysis cath wbc low - gCSF 10/17 - wbc still low - poor prognosis - ct folic acid for anemia 10/18 - not much improvement - last cbc on 10/16 10/19 - wbc low - moving left toes 10/20 - low counts may be HIV or meds related 10/21 - as per rN - next week trach/? PEG planned moves rt hand and left toes 10/22 - as per RN - PEG planned next week pt awake - moves left toes - restrain - Patient Problems (1) Neutropenia Current Visit: Yes Status: Acute Subjective Date of service: 10/22/18 Principal diagnosis: low wbc Interval history: awake - d/w RN Objective - Exam Narrative Exam: awake - Constitutional Vitals: Last Vital Signs Temp 98.5 F 10/22/18 08:00 Pulse 94 H 10/22/18 08:46 Resp 20 10/22/18 08:46 BP 139/85 10/22/18 07:58 Pulse Ox 98 10/22/18 07:58 General appearance: no acute distress Performance status: 4-completely disabled - EENT ENT: other (intubated) Lymph node exam: negative cervical - Neck Neck: other (no LNs) - Respiratory Respiratory effort: Positive: normal Respiratory: bilateral: CTA - Cardiovascular Heart Sounds: Present: S1 & S2 Extremities: No edema - Gastrointestinal General gastrointestinal: Present: soft, non-tender Rectal Exam: deferred - Genitourinary Male genitourinary: Present: deferred - Integumentary Integumentary: warm - Neurologic Neurologic: other (moves left toes and rt arm) - Labs Lab Results: Laboratory Results - last 24 hr 10/21/18 11:38 POC Glucose 98 Medications & Allergies - Medications Allergies/Adverse Reactions: Allergies No Known Allergies Allergy (Unverified 09/11/18 17:50) Home Medications: Home Medications Medication Instructions Recorded Confirmed Last Taken Type No Known Home Medications [No 10/02/18 10/02/18 Unknown History Reported Home Medications] Active Medications: Generic Name Dose Route Start Last Admin Trade Name Freq PRN Reason Stop Dose Admin Acetaminophen 650 mg 09/11/18 19:30 10/09/18 16:32 Tylenol PO 650 mg Q4H PRN Administration Pain MILD(1-3)/Fever >100.5/RIVERA Acetaminophen 650 mg 09/21/18 07:39 10/07/18 21:15 Tylenol [place] 650 mg Q4H PRN Administration Fever >101 Albuterol 2.5 mg 09/20/18 20:00 10/22/18 08:39 Proventil IH 2.5 mg Q6HRT GIA Administration Amiodarone HCl 200 mg 10/22/18 10:00 Cordarone PO DAILY GIA Lipase/Protease/Amylase 1 each 09/30/18 12:01 Pancrealen Gibbs 10,500 Unit FEEDTUBE PRN PRN For Clogged Feeding Tube Atovaquone 750 mg 09/21/18 10:00 10/21/18 22:13 Mepron PO 750 mg BID GIA Administration Azithromycin 1,200 mg 10/18/18 10:00 10/18/18 10:35 Zithromax PO 1,200 mg Tu GIA Administration Darunavir 800 mg 10/21/18 12:00 10/21/18 14:57 Prezista PO 800 mg QDAY GIA Administration Emtricitabine 200 mg 10/13/18 10:00 10/21/18 14:29 Emtriva PO 200 mg Q96H GIA Administration Famotidine 20 mg 10/10/18 10:00 10/21/18 14:26 Pepcid PO 20 mg DAILY GIA Administration Fluconazole 200 mg 10/05/18 12:00 10/21/18 14:27 Diflucan PO 200 mg QDAY GIA Administration Folic Acid 1 mg 10/07/18 10:00 10/21/18 14:26 Folvite PO 1 mg QDAY GIA Administration Glycopyrrolate 2 mg 10/07/18 18:00 10/22/18 06:20 Robinul PO 2 mg Q6HR GIA Administration Hydrophilic Ointment 1 applic 09/21/18 01:46 09/22/18 03:46 Vaseline Lip Therapy TP 1 applic Q2HR PRN Administration Dry Lips Ganciclovir Sodium 150 mg/ 250 mls @ 100 mls/hr 10/12/18 10:00 10/21/18 14:23 Sodium Chloride IV 100 mls/hr MoWeFr GIA Administration Sodium Chloride 100 mls @ 999 mls/hr 10/17/18 10:39 Nacl 0.9% IV CHERYL PRN Hypotension Levetiracetam 750 mg 10/12/18 22:00 10/21/18 22:14 Keppra PO 750 mg BID IGA Administration Levothyroxine Sodium 25 mcg 09/19/18 06:00 10/22/18 06:19 Synthroid PO 25 mcg DAILY@0600 GIA Administration Metoprolol Tartrate 12.5 mg 10/10/18 13:00 10/21/18 22:14 Lopressor PO 12.5 mg BID GIA Administration Morphine Sulfate 2 mg 10/20/18 18:37 Morphine IV Q4H PRN Pain, Moderate (4-6) Multi-Ingred Cream/Lotion/Oil/Oint 1 applic 09/21/18 01:46 Artificial Tears Ophth Oint OU Q4HR PRN Dry Eye(s) Ondansetron HCl 4 mg 09/11/18 19:30 Zofran IV Q8H PRN Nausea And Vomiting Ritonavir 100 mg 10/21/18 12:00 10/21/18 14:58 Norvir PO 100 mg QDAY GIA Administration Scopolamine 1 each 09/18/18 18:00 10/21/18 18:22 Transderm-Scop TD 1 each Q3D GIA Administration Simple Syrup 15 ml 10/15/18 10:45 Simple Syrup FEEDTUBE PRN PRN Hypoglycemia Simple Syrup 30 ml 10/15/18 10:45 Simple Syrup FEEDTUBE PRN PRN Hypoglycemia Sodium Bicarbonate 325 mg 10/15/18 10:45 Sodium Bicarbonate FEEDTUBE PRN PRN For Clogged Feeding Tube Sodium Chloride 10 ml 09/11/18 22:00 10/21/18 22:15 Sodium Chloride Flush Syringe 10 Ml IV 10 ml BID GIA Administration Sodium Chloride 10 ml 09/11/18 19:30 10/21/18 18:16 Sodium Chloride Flush Syringe 10 Ml IV 10 ml PRN PRN Administration LINE FLUSH
[2018-10-22] MEDS: KEPPRA PO SCH ×2 (09:34→21:02)
[2018-10-22] MEDS: CORDARONE PO SCH (09:35)
[2018-10-22] MEDS: FOLVITE PO SCH (09:35)
[2018-10-22] MEDS: PEPCID PO SCH (09:36)
[2018-10-22] MEDS: LOPRESSOR PO SCH ×2 (09:36→21:01)
[2018-10-22] MEDS: TIVICAY PO SCH (09:40)
[2018-10-22] MEDS: DIFLUCAN PO SCH (09:40)
[2018-10-22] MEDS: MEPRON PO SCH ×2 (09:41→21:02)
[2018-10-22] MEDS: PREZISTA PO SCH (09:41)
[2018-10-22] MEDS: NORVIR PO SCH (09:42)
[2018-10-22] MEDS: SODIUM CHLORIDE FLUSH SYRINGE 10 ML IV SCH ×2 (10:00→21:02)
--- NOTE | 2018-10-22 12:38 | Progress Note ---
Assessment and Plan Assessment and plan: ARF - Patient's creatinine level is trending up - nephrology is following and he started on hemodialysis 10/16/18. Acute hypoxemic respiratory failure - Patient has pneumonia and altered mental status - Patient is intubated and on mechanical ventilation - Trach and PEG per surgery. Disseminated CMV viremia: -Treated with IV ganciclovir and currently he is on prophylaxis Toxic metabolic encephalopathy. 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 Of note, MRI did not show ventriculitis. A. fib with RVR. Converted to NSR. cont Amiodarone and metoprolol. Amiodarone decreased to 200 mg per cardiology Rate controlled Neurosyphilis: CSF VDRL positive, patient finished a course of IV penicillin 21 days Diarrhea. Resolved, etiology likely secondary to Giardia. Giardia antigen positive in stool. Completed a course of Flagyl. Oral candidiasis. Fluconazole HIV/AIDS. New Diagnosis. Continue on HAART per ID continue atovaquone and azithromycin prophylaxis Neutropenia. 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 Additional dose of Neupogen per hematology. NGT associated sinusitis/mastoiditis. Patient fully treated. Continue OGT Prognosis poor. The high probability of a clinically significant, sudden or life threatening deterioration of the [neurological, respiratory and cardiac] system(s) required my full and direct attention, intervention and personal management. The aggregate critical care time was [32] minutes. This time is in addition to time spent performing reported procedures but includes the following: [x] Data Review and interpretation [x] Patient assessment and monitoring of vital signs [x] Documentation [x] Medication orders and management History Interval history: Patient is 33 yo initially presented with diarrhea, found to have pneumonia, sepsis, HIV/AIDS(new diagnosis) with CD4 count of 4. He was started on abx for PJP. His mental status has worsened with confusion, lethargy. LP done . He was diagnosed with neurosyphilis. Started on Penicillin. Closest family is sister in [place], and dr. Baltazar spoke to her several times about diagnosis but did not tell her about HIV/AIDS because of patient confidentiality. The patient decompensated on 09/20/18 with acute hypoxemic respiratory failure and worsening toxic metabolic encephalopathy requiring transfer to ICU and intubation. He now remains on mechanical ventilation. The patient was also noted to develop SVT requiring amiodarone drip as well as heparin drip. Severe Sepsis. Etiology secondary to bacterial pneumonia +/- gastroenteritis with newly diagnosed with HIV. Fevers have re-emerged. Repeat blood cx per ID. the patient was initiated on hemodialysis 10/16/18 for renal failure secondary to ATN from severe sepsis. Hospitalist Physical - Constitutional Vitals: Temp Pulse Resp BP Pulse Ox 98.5 F 85 18 132/85 96 10/22/18 08:00 10/22/18 10:51 10/22/18 10:51 10/22/18 10:00 10/22/18 10:51 General appearance: Present: mild distress, other (orally intubated, minimal response--right side spontaneous movement) - EENT Eyes: Present: PERRL, EOM intact ENT: hearing intact, clear oral mucosa, dentition normal - Neck Neck: Present: supple, normal ROM - Respiratory Respiratory effort: normal Respiratory: bilateral: CTA - Cardiovascular Rhythm: regular Heart Sounds: Present: S1 & S2. Absent: gallop, rub - Extremities Extremities: no ischemia, No edema, Full ROM - Abdominal General gastrointestinal: soft, non-tender, non-distended, normal bowel sounds - Integumentary Integumentary: Present: clear, warm, dry - Neurologic Neurologic: CNII-XII intact, moves all extremities Results - Labs CBC & Chem 7: 10/19/18 14:54 10/21/18 06:00 Labs: Laboratory Last Values WBC 0.7 K/mm3 (4.5-11.0) L* 10/19/18 14:54 RBC 2.77 M/mm3 (3.65-5.03) L 10/19/18 14:54 Hgb 8.3 gm/dl (11.8-15.2) L 10/19/18 14:54 Hct 24.6 % (35.5-45.6) L 10/19/18 14:54 MCV 89 fl (84-94) 10/19/18 14:54 MCH 30 pg (28-32) 10/19/18 14:54 MCHC 34 % (32-34) 10/19/18 14:54 RDW 19.2 % (13.2-15.2) H 10/19/18 14:54 Plt Count 105 K/mm3 (140-440) L 10/19/18 14:54 [place] % (Auto) Salt Plant Operator 09/29/18 05:00 Eos % (Auto) Salt Plant Operator 10/13/18 04:05 Baso % (Auto) Salt Plant Operator 10/13/18 04:05 Add Manual Diff Complete 10/19/18 14:54 Total Counted 50 10/19/18 14:54 Seg Neutrophils % Salt Plant Operator 10/16/18 07:50 Seg Neuts % (Manual) 46.0 % (40.0-70.0) 10/19/18 14:54 Band Neutrophils % 2.0 % 10/19/18 14:54 Lymphocytes % (Manual) 32.0 % (13.4-35.0) 10/19/18 14:54 Reactive Lymphs % (Man) 0 % 10/19/18 14:54 Monocytes % (Manual) 16.0 % (0.0-7.3) H 10/19/18 14:54 Eosinophils % (Manual) 2.0 % (0.0-4.3) 10/19/18 14:54 Basophils % (Manual) 2.0 % (0.0-1.8) H 10/19/18 14:54 Metamyelocytes % 0 % 10/19/18 14:54 Myelocytes % 0 % 10/19/18 14:54 Promyelocytes % 0 % 10/19/18 14:54 Blast Cells % 0 % 10/19/18 14:54 Nucleated RBC % Not Reportable 10/19/18 14:54 Seg Neutrophils # Man 0.3 K/mm3 (1.8-7.7) L 10/19/18 14:54 Band Neutrophils # 0.0 K/mm3 10/19/18 14:54 Abs Lymphs (Manual) 309 cells/uL (850-3900) L 09/13/18 12:29 Lymphocytes # (Manual) 0.2 K/mm3 (1.2-5.4) L 10/19/18 14:54 Abs React Lymphs (Man) 0.0 K/mm3 10/19/18 14:54 Monocytes # (Manual) 0.1 K/mm3 (0.0-0.8) 10/19/18 14:54 Eosinophils # (Manual) 0.0 K/mm3 (0.0-0.4) 10/19/18 14:54 Basophils # (Manual) 0.0 K/mm3 (0.0-0.1) 10/19/18 14:54 Metamyelocytes # 0.0 K/mm3 10/19/18 14:54 Myelocytes # 0.0 K/mm3 10/19/18 14:54 Promyelocytes # 0.0 K/mm3 10/19/18 14:54 Blast Cells # 0.0 K/mm3 10/19/18 14:54 WBC Morphology Not Reportable 10/19/18 14:54 Hypersegmented Neuts Not Reportable 10/19/18 14:54 Hyposegmented Neuts Not Reportable 10/19/18 14:54 Hypogranular Neuts Not Reportable 10/19/18 14:54 Smudge Cells Not Reportable 10/19/18 14:54 Toxic Granulation Not Reportable 10/19/18 14:54 Toxic Vacuolation Not Reportable 10/19/18 14:54 Dohle Bodies Not Reportable 10/19/18 14:54 Pelger-Huet Anomaly Not Reportable 10/19/18 14:54 Giovanna Rods Not Reportable 10/19/18 14:54 Platelet Estimate Consistent w auto 10/19/18 14:54 Clumped Platelets Not Reportable 10/19/18 14:54 Plt Clumps, EDTA Not Reportable 10/19/18 14:54 Large Platelets Not Reportable 10/19/18 14:54 Giant Platelets Not Reportable 10/19/18 14:54 Platelet Satelliting Not Reportable 10/19/18 14:54 Plt Morphology Comment Not Reportable 10/19/18 14:54 RBC Morphology Not Reportable 10/19/18 14:54 Dimorphic RBCs Not Reportable 10/19/18 14:54 Polychromasia Not Reportable 10/19/18 14:54 Hypochromasia Not Reportable 10/19/18 14:54 Poikilocytosis Not Reportable 10/19/18 14:54 Anisocytosis 1+ 10/19/18 14:54 Microcytosis Not Reportable 10/19/18 14:54 Macrocytosis Not Reportable 10/19/18 14:54 Spherocytes Not Reportable 10/19/18 14:54 Pappenheimer Bodies Not Reportable 10/19/18 14:54 Sickle Cells Not Reportable 10/19/18 14:54 Target Cells Not Reportable 10/19/18 14:54 Tear Drop Cells Not Reportable 10/19/18 14:54 Ovalocytes Not Reportable 10/19/18 14:54 Stomatocytes 1+ 09/29/18 05:00 Helmet Cells Not Reportable 10/19/18 14:54 [place]ant[place] Bodies Not Reportable 10/19/18 14:54 Rea Rings Not Reportable 10/19/18 14:54 [place] Cells Not Reportable 10/19/18 14:54 Bite Cells Not Reportable 10/19/18 14:54 Crenated Cell Not Reportable 10/19/18 14:54 Elliptocytes Not Reportable 10/19/18 14:54 Acanthocytes (Spur) Not Reportable 10/19/18 14:54 Rouleaux Not Reportable 10/19/18 14:54 Hemoglobin C Crystals Not Reportable 10/19/18 14:54 Schistocytes Not Reportable 10/19/18 14:54 Malaria parasites Not Reportable 10/19/18 14:54 Kieran Bodies Not Reportable 10/19/18 14:54 Hem Pathologist Commnt No 10/19/18 14:54 PT 16.0 Sec. (12.2-14.9) H 10/10/18 08:09 INR 1.20 (0.87-1.13) H 10/10/18 08:09 APTT 40.9 Sec. (24.2-36.6) H 09/21/18 15:00 Heparin Anti-Xa Level 0.35 U.I./ml (0.3-0.7) 10/05/18 10:19 POC ABG pH 7.399 (7.35-7.45) 10/20/18 12:17 POC ABG pCO2 33.3 (35-45) L 10/20/18 12:17 POC ABG pO2 107 (80-105) H 10/20/18 12:17 POC ABG HCO3 20.6 10/20/18 12:17 POC ABG Total CO2 22 10/20/18 12:17 POC ABG O2 Sat 98 10/20/18 12:17 POC ABG Base Excess -4 10/20/18 12:17 FiO2 25 % 10/20/18 12:17 Sodium 143 mmol/L (137-145) 10/21/18 06:00 Potassium 3.0 mmol/L (3.6-5.0) L 10/21/18 06:00 Chloride 100.2 mmol/L (98-107) 10/21/18 06:00 Carbon Dioxide 20 mmol/L (22-30) L 10/21/18 06:00 Anion Gap 26 mmol/L 10/21/18 06:00 BUN 94 mg/dL (9-20) H 10/21/18 06:00 Creatinine 6.1 mg/dL (0.8-1.5) H 10/21/18 06:00 Estimated GFR 13 ml/min 10/21/18 06:00 BUN/Creatinine Ratio 15 % 10/21/18 06:00 Glucose 85 mg/dL (75-100) 10/21/18 06:00 POC Glucose 101 (70-105) 10/22/18 12:01 Lactic Acid 0.90 mmol/L (0.7-2.0) 09/11/18 20:17 Calcium 7.9 mg/dL (8.4-10.2) L 10/21/18 06:00 Phosphorus 8.50 mg/dL (2.5-4.5) H 10/14/18 09:40 Magnesium 2.10 mg/dL (1.7-2.3) 10/14/18 09:40 Iron 35 ug/dL (49-181) L 10/06/18 09:40 TIBC 157 mcg/dL (250-450) L 10/06/18 09:40 Ferritin 1126.0 ng/mL (13.0-400.0) H 10/06/18 09:40 Total Bilirubin 0.30 mg/dL (0.1-1.2) 10/19/18 06:15 Direct Bilirubin < 0.2 mg/dL (0-0.2) 09/13/18 07:31 AST 54 units/L (5-40) H 10/19/18 06:15 ALT 36 units/L (7-56) 10/19/18 06:15 Alkaline Phosphatase 57 units/L (35-129) 10/19/18 06:15 Ammonia 27.0 umol/L (25-60) 10/03/18 13:23 Total Creatine Kinase 113 units/L (55-170) 10/11/18 05:20 CK-MB (CK-2) 2.6 ng/mL (0.0-4.0) 10/11/18 05:20 CK-MB (CK-2) Rel Index 0.5 (0-4) 09/21/18 04:25 NT-Pro-B Natriuret Pep 145.9 pg/mL (0-450) 09/18/18 16:07 Total Protein 5.7 g/dL (6.3-8.2) L 10/19/18 06:15 Albumin 2.5 g/dL (3.9-5) L 10/19/18 06:15 Albumin/Globulin Ratio 0.8 % 10/19/18 06:15 Vitamin B12 934.5 pg/mL (211-911) H 09/16/18 11:41 Folate 6.71 ng/mL (7.3-26.0) L 10/06/18 09:40 TSH 5.190 mlU/mL (0.270-4.200) H 09/18/18 12:46 Free T4 0.75 ng/dL (0.76-1.46) L 09/18/18 12:46 Urine Color Yellow (Yellow) 10/11/18 05:40 Urine Turbidity Slightly-cloudy (Clear) 10/11/18 05:40 Urine pH 5.0 (5.0-7.0) 10/11/18 05:40 Ur Specific [place] 1.012 (1.003-1.030) 10/11/18 05:40 Urine Protein 30 mg/dl mg/dL (Negative) 10/11/18 05:40 Urine Glucose (UA) Neg mg/dL (Negative) 10/11/18 05:40 Urine Ketones Neg mg/dL (Negative) 10/11/18 05:40 Urine Blood Mod (Negative) 10/11/18 05:40 Urine Nitrite Neg (Negative) 10/11/18 05:40 Urine Bilirubin Neg (Negative) 10/11/18 05:40 Urine Urobilinogen < 2.0 mg/dL (<2.0) 10/11/18 05:40 Ur Leukocyte Esterase Neg (Negative) 10/11/18 05:40 Urine WBC (Auto) 8.0 /HPF (0.0-6.0) H 10/11/18 05:40 Urine RBC (Auto) 45.0 /HPF (0.0-6.0) 02/26/19 05:40 U Epithel Cells (Auto) 2.0 /HPF (0-13.0) 10/11/18 05:40 Urine Bacteria (Auto) 1+ /HPF (Negative) 10/11/18 05:40 Urine Mucus Few /HPF 10/11/18 05:40 Urine Creatinine 57.5 mg/dL (0.1-20.0) H 10/11/18 05:40 Protein/Creatinin Ratio 0.77 10/11/18 05:40 Urine Sodium 70 mmol/L 10/11/18 05:40 Urine Chloride 35.1 mmolL (110-250) L 10/11/18 05:40 Urine Total Protein 44 mg/dL (5-11.8) H 10/11/18 05:40 CSF Appearance Bloody 10/10/18 Unknown CSF Color Red 10/10/18 Unknown CSF WBC 10 /mm3 (1-10) 10/10/18 Unknown CSF RBC 75503 /mm3 (0-0) 10/10/18 Unknown CSF Seg Neutrophils 14.0 % (0-6) 10/10/18 Unknown CSF Lymphocytes % 44.0 % (40-80) 10/10/18 Unknown CSF Reactive Lymphs 0 % 10/10/18 Unknown CSF Monocytes % 38.0 % (15-45) 10/10/18 Unknown CSF Eosinophils % 4.0 % 10/10/18 Unknown CSF Basophils 0 % 10/10/18 Unknown CSF Pathologist Review C 10/10/18 Unknown CSF Glucose 47 mg/dL 10/10/18 Unknown CSF Total Protein 84 mg/dL 10/10/18 Unknown CSF VDRL Reactive 1:2 (Nonreactive) H 10/10/18 Unknown Vancomycin Trough 14.3 ug/mL (5.0-20.0) 09/25/18 14:45 Random Vancomycin 10.7 ug/mL (0-40.0) 10/12/18 03:30 Urine Opiates Screen Presumptive negative 09/17/18 15:52 Urine Methadone Screen Presumptive negative 09/17/18 15:52 Ur Barbiturates Screen Presumptive negative 09/17/18 15:52 Ur Phencyclidine Scrn Presumptive negative 09/17/18 15:52 Ur Amphetamines Screen Presumptive negative 09/17/18 15:52 U Benzodiazepines Scrn Presumptive negative 09/17/18 15:52 Urine Cocaine Screen Presumptive negative 09/17/18 15:52 U Marijuana (THC) Screen Presumptive negative 09/17/18 15:52 Drugs of Abuse Note Disclamer 09/17/18 15:52 Proteinase 3 (PR3) Ab <1.0 AI (<1.0) 10/12/18 09:46 Myeloperoxidase Ab <1.0 AI (<1.0) 10/12/18 09:46 Complement C3 184 mg/dL (82-185) 10/12/18 09:46 Complement C4 45 mg/dL (15-53) 10/12/18 09:46 Lymph Enumerat CD4/CD8 0.01 (0.86-5.00) L 09/13/18 12:29 % CD3 Cells 71 % (57-85) 09/13/18 12:29 Absolute CD3 Count 220 cells/uL (840-3060) L 09/13/18 12:29 % CD4 Cells 1 % (30-61) L 09/13/18 12:29 Absolute CD4 Count 4 cells/uL (490-1740) L 09/13/18 12:29 % CD8 Cells 70 % (12-42) H 09/13/18 12:29 Absolute CD8 Count 216 cells/uL (180-1170) 09/13/18 12:29 % CD19 Cells 17 % (6-29) 09/13/18 12:29 Absolute CD19 Count 54 cells/uL (110-660) L 09/13/18 12:29 RPR Titer 1:16 09/13/18 12:29 RPR Reactive (Nonreactive) 09/13/18 12:29 T.pallidum Ab (FTA-ABS) Reactive (Nonreactive) H 09/14/18 16:34 C. difficile Toxin A&B Negative (Negative) 09/12/18 05:30 CMV DNA PCR log mass spectroscopist/mL See scanned results 10/03/18 06:12 Hepatitis A IgM Ab Non-reactive (NonReactive) 09/13/18 12:29 Hep Bs Antigen Non-reactive (Negative) 09/13/18 12:29 Hep B Core IgM Ab Non-reactive (NonReactive) 09/13/18 12:29 Hepatitis C Antibody Non-reactive (NonReactive) 09/13/18 12:29 HIV-1 Antibody See scanned result 09/11/18 19:14 HIV-1 RNA PCR copies/ml 01546 Copies/mL H 09/13/18 12:29 HIV-1 RNA (PCR) log 4.71 Log cps/mL H 09/13/18 12:29 HIV-2 Ab (Immunoblot) See scanned result 09/11/18 19:14 HIV 1&2 Antibody Rapid Reactive (Non React) 09/11/18 19:14 HIV P24 Antigen Non react (Non React) 09/11/18 19:14 Influenza A (Rapid) Negative (Negative) 09/13/18 16:05 Influenza A (RT-PCR) Negative (Negative) 09/13/18 16:05 Influenza B (Rapid) Negative (Negative) 09/13/18 16:05 Influenza B (RT-PCR) Negative (Negative) 09/13/18 16:05 Toxoplasma IgG Ab <7.20 IU/mL (<7.20) 09/16/18 12:09 Miscellaneous Test Flexitest 1 H 10/10/18 Unknown Nutrition/Malnutrition Assess - Dietary Evaluation Nutrition/Malnutrition Findings: Nutrition Notes Start: 09/12/18 17:45 Freq: Status: Active Protocol: Document 10/20/18 14:10 (Rec: 10/20/18 14:24 [email or web address]) Co-Sign 10/20/18 14:10 LP Nutrition Notes Initial or Follow up Reassessment Current Diagnosis Acute Kidney Injury,Sepsis, Respiratory Failure Other Pertinent Diagnosis On HD, HIV, bilat pneu, gastroenteritis, encephalopathy Current Diet Vital AF at 60 ml/hr Labs/Tests From 10/19: K: 2.9 BUN: 107 Cr: 5.9 Pertinent Medications Lopressor Height 6 ft Weight 120.8 kg [place] Body Weight (kg) 80.90 BMI 36.1 Subjective/Other Information Pt. f/u for stable TF, renal labs. Observed Vital AF running at 60 ml/hr. Per RN, pt still tolerating TF well. BUN and Cr are high but trending down. Percent of energy/protein needs met: 89%/89% Burn Absent Trauma Absent #2 Nutrition Diagnosis Inadequate oral intake Diagnosis Progress(for reassessment Continues documentation) #1 Nutrition Diagnosis Malnutrition Diagnosis Progress(for reassessment Continues documentation) Is patient on ventilator? Yes Is Patient Ambulatory and/or Out of Bed No REE-([facility]-confined to bed) 2630.916 Kcal/Kg value to use for calculation 16 Approximate Energy Requirements Using 1933 kcal/Kg Calculation Used for Recommendations Kcal/kg Additional Notes Pro needs: 162 g/day (2g/kg IBW) Fluid: 1 ml/kcal Nutrition Intervention Change Diet Order: Continue TF Nutrition Support: Vital AF 1.2 at 60ml/hr Flush with 100ml q4h Kcal 1,728 Protein (gm) 108 Fluid (mL) 1,203 Goal #1 Continue to meet at least 80% of energy and 65% of protein needs due to renal function. Anticipated Discharge Needs: Unable to determine at this time Follow-Up By: 10/24/18 Additional Comments F/u for stable TF, renal labs
--- NOTE | 2018-10-22 12:51 | Progress Note ---
Assessment and Plan - Patient Problems (1) Acute kidney failure with tubular necrosis Current Visit: Yes Status: Acute Plan to address problem: With worsening renal function, pateint was eventually initiated on HD. Currently on MWF inpatient HD schedule. No acute HD needs today. Labs noted without any signs of significant renal recovery. (2) Hypokalemia Current Visit: Yes Status: Acute Plan to address problem: Patient has now had been persistently hypokalemic We are using 4k bath on dialysate. Will continue to monitor. (3) Acute respiratory failure with hypoxia Current Visit: Yes Status: Acute Plan to address problem: Remains intubated. 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 Will continue to monitor. Remains lethargic this am. (5) Pancytopenia Current Visit: Yes Status: Acute Plan to address problem: In the setting of CMV viremia, HIV/AIDS. Will defer to primary team. (6) HIV (human immunodeficiency virus infection) Current Visit: Yes Status: Chronic Plan to address problem: Management per ID recommendations. (7) Hypernatremia Current Visit: Yes Status: Acute Plan to address problem: Hypernatremia has resolved at this time. Subjective Date of service: 10/22/18 Principal diagnosis: low wbc Interval history: No acute issues/changes. Remains intubated. Has been initiated on HD since 10/15. Labs noted. No signs of renal recovery noted. Objective - Vital Signs Vital signs: Vital Signs - 12hr 10/22/18 10/22/18 10/22/18 01:00 02:00 02:18 Temperature Pulse Rate 87 92 H Pulse Rate [ 89 Bases] Pulse Rate [ From Monitor] Respiratory 18 21 Rate Respiratory 20 Rate [Bases] Blood Pressure 125/75 118/79 O2 Sat by Pulse 99 100 Oximetry 10/22/18 10/22/18 10/22/18 02:28 03:00 04:00 Temperature 98.8 F Pulse Rate 87 88 Pulse Rate [ 88 Bases] Pulse Rate [ 97 H From Monitor] Respiratory 20 19 Rate Respiratory 20 Rate [Bases] Blood Pressure 127/76 125/79 O2 Sat by Pulse 96 97 Oximetry 10/22/18 10/22/18 10/22/18 04:09 05:00 06:00 Temperature Pulse Rate 87 87 90 Pulse Rate [ Bases] Pulse Rate [ From Monitor] Respiratory 17 17 Rate Respiratory Rate [Bases] Blood Pressure 125/79 121/67 137/83 O2 Sat by Pulse 100 94 96 Oximetry 10/22/18 10/22/18 10/22/18 07:00 07:58 08:00 Temperature 98.5 F Pulse Rate 91 H 90 94 H Pulse Rate [ Bases] Pulse Rate [ 88 From Monitor] Respiratory 19 20 19 Rate Respiratory Rate [Bases] Blood Pressure 127/79 139/85 139/75 O2 Sat by Pulse 96 98 100 Oximetry 10/22/18 10/22/18 10/22/18 08:40 08:46 09:00 Temperature Pulse Rate 89 Pulse Rate [ 90 94 H Bases] Pulse Rate [ From Monitor] Respiratory 17 Rate Respiratory 20 20 Rate [Bases] Blood Pressure 126/76 O2 Sat by Pulse 96 Oximetry 10/22/18 10/22/18 10/22/18 09:36 10:00 10:51 Temperature Pulse Rate 89 89 85 Pulse Rate [ Bases] Pulse Rate [ From Monitor] Respiratory 15 18 Rate Respiratory Rate [Bases] Blood Pressure 126/76 132/85 O2 Sat by Pulse 96 Oximetry - General Appearance General appearance: intubated EENT: ATNC, PERRL Neck: no JVD, no thyromegaly Respiratory: Present: Decreased Breath Sounds Cardiology: regular, S1S2 Gastrointestinal: normal Integumentary: warm and dry Neurologic: other (lethargic this afternoon, off sedation) Musculoskeletal: other (mild edema ) - Lab 10/19/18 14:54 10/21/18 06:00 Most recent lab results Calcium 7.9 mg/dL (8.4-10.2) L 10/21/18 06:00 Phosphorus 8.50 mg/dL (2.5-4.5) H 10/14/18 09:40 Magnesium 2.10 mg/dL (1.7-2.3) 10/14/18 09:40 Urine Creatinine 57.5 mg/dL (0.1-20.0) H 10/11/18 05:40 Urine Sodium 70 mmol/L 10/11/18 05:40 Urine Total Protein 44 mg/dL (5-11.8) H 10/11/18 05:40 - Allied health notes Allied health notes reviewed: nursing Medications & Allergies - Medications Allergies/Adverse Reactions: Allergies No Known Allergies Allergy (Unverified 09/11/18 17:50) Home Medications: Home Medications Medication Instructions Recorded Confirmed Last Taken Type No Known Home Medications [No 10/02/18 10/02/18 Unknown History Reported Home Medications] Active Medications: Generic Name Dose Route Start Last Admin Trade Name Freq PRN Reason Stop Dose Admin Acetaminophen 650 mg 09/11/18 19:30 10/09/18 16:32 Tylenol PO 650 mg Q4H PRN Administration Pain MILD(1-3)/Fever >100.5/RIVERA Acetaminophen 650 mg 09/21/18 07:39 10/07/18 21:15 Tylenol OR 650 mg Q4H PRN Administration Fever >101 Albuterol 2.5 mg 09/20/18 20:00 10/22/18 08:39 Proventil IH 2.5 mg Q6HRT GIA Administration Amiodarone HCl 200 mg 10/22/18 10:00 10/22/18 09:35 Cordarone PO 200 mg DAILY GIA Administration Lipase/Protease/Amylase 1 each 09/30/18 12:01 Pancreazkandice Gibbs 10,500 Unit FEEDTUBE PRN PRN For Clogged Feeding Tube Atovaquone 750 mg 09/21/18 10:00 10/22/18 09:41 Mepron PO 750 mg BID GIA Administration Azithromycin 1,200 mg 10/18/18 10:00 10/18/18 10:35 Zithromax PO 1,200 mg Tu GIA Administration Darunavir 800 mg 10/21/18 12:00 10/22/18 09:41 Prezista PO 800 mg QDAY GIA Administration Emtricitabine 200 mg 10/13/18 10:00 10/21/18 14:29 Emtriva PO 200 mg Q96H GIA Administration Famotidine 20 mg 10/10/18 10:00 10/22/18 09:36 Pepcid PO 20 mg DAILY GIA Administration Fluconazole 200 mg 10/05/18 12:00 10/22/18 09:40 Diflucan PO 200 mg QDAY GIA Administration Folic Acid 1 mg 10/07/18 10:00 10/22/18 09:35 Folvite PO 1 mg QDAY GIA Administration Glycopyrrolate 2 mg 10/07/18 18:00 10/22/18 06:20 Robinul PO 2 mg Q6HR GIA Administration Hydrophilic Ointment 1 applic 09/21/18 01:46 09/22/18 03:46 Vaseline Lip Therapy TP 1 applic Q2HR PRN Administration Dry Lips Ganciclovir Sodium 150 mg/ 250 mls @ 100 mls/hr 10/12/18 10:00 10/21/18 14:23 Sodium Chloride IV 100 mls/hr MoWeFr GIA Administration Sodium Chloride 100 mls @ 999 mls/hr 10/17/18 10:39 Nacl 0.9% IV CHERYL PRN Hypotension Levetiracetam 750 mg 10/12/18 22:00 10/22/18 09:34 Keppra PO 750 mg BID GIA Administration Levothyroxine Sodium 25 mcg 09/19/18 06:00 10/22/18 06:19 Synthroid PO 25 mcg DAILY@0600 GIA Administration Metoprolol Tartrate 12.5 mg 10/10/18 13:00 10/22/18 09:36 Lopressor PO 12.5 mg BID GIA Administration Morphine Sulfate 2 mg 10/20/18 18:37 Morphine IV Q4H PRN Pain, Moderate (4-6) Multi-Ingred Cream/Lotion/Oil/Oint 1 applic 09/21/18 01:46 Artificial Tears Ophth Oint OU Q4HR PRN Dry Eye(s) Ondansetron HCl 4 mg 09/11/18 19:30 Zofran IV Q8H PRN Nausea And Vomiting Ritonavir 100 mg 10/21/18 12:00 10/22/18 09:42 Norvir PO 100 mg QDAY GIA Administration Scopolamine 1 each 09/18/18 18:00 10/21/18 18:22 Transderm-Scop TD 1 each Q3D GIA Administration Simple Syrup 15 ml 10/15/18 10:45 Simple Syrup FEEDTUBE PRN PRN Hypoglycemia Simple Syrup 30 ml 10/15/18 10:45 Simple Syrup FEEDTUBE PRN PRN Hypoglycemia Sodium Bicarbonate 325 mg 10/15/18 10:45 Sodium Bicarbonate FEEDTUBE PRN PRN For Clogged Feeding Tube Sodium Chloride 10 ml 09/11/18 22:00 10/22/18 10:00 Sodium Chloride Flush Syringe 10 Ml IV 10 ml BID GIA Administration Sodium Chloride 10 ml 09/11/18 19:30 10/21/18 18:16 Sodium Chloride Flush Syringe 10 Ml IV 10 ml PRN PRN Administration LINE FLUSH
--- NOTE | 2018-10-22 15:45 | Progress Note ---
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) Elevated LFTs Neutropenia Thrombocytopenia (I had an extended discussion with his Sister over the phone and explained the concept of substituted judgement to her; she wants some time to make a decision) - lower extremity dopplers -ve - deploy SCD's fpr VTE prophylaxis - stopped Apixaban in anticipation of tracheostomy - prn ABG's & CXR's at this point - continue daily SBT's as tolerated - for tracheostomy tentatively on 10/25/18 - continue HD/UF for toxin and volume clearance - continue therapy for CMV encephalitis, neuro syphillis as well as ART - appreciate ID input - continue Robinul & scopolamine for secretion control (secretions improved) - continue to hold all other sedating medications - continue supplemental oxygen to keep sats > 90% - continue bronchodilators with pulmonary hygiene per RT - Continue empiric and targeted anti-infective's per ID recs antibiotics per ID - continue set rate at 12/min - daily SAT's if sedation resumed - continue enteral nutrition as tolerated - when resumed target sedation for RASS 0 to -1 - PT/OT/ROM exercises as tolerated - mobility protocol for pressure ulcer prophylaxis - continue GI & VTE prophylaxis - continue other care per attending / other consultants ...... re-evaluate in am & prn The high probability of a clinically significant, sudden or life threatening deterioration of the [cardiac, respiratory and neurologic] system(s) required my full and direct attention, intervention and personal management. The aggregate critical care time was [35] minutes. This time is in addition to time spent performing reported procedures but includes the following: [x] Data Review and interpretation [x] Patient assessment and monitoring of vital signs [x] Documentation [x] Medication orders and management Subjective Date of service: 10/22/18 Principal diagnosis: Severe sepsis; Ac hypoxemic Resp failure; [place]. Pneumonia; Ac encephalopathy Interval history: Patient is seen today for: Severe sepsis (present on admission with fever, tachycardia, hypotension and elevated lactate); Acute hypoxemic Respiratory failure; Bilateral pneumonia; Acute encephalopathy (Toxic / Metabolic); Atrial Fibrillation with RVR Seen and examined at bedside; 24hour events reviewed; nursing and respiratory care staff consulted; no adverse overnight events reported to me; resting peacefully in bed; dopplers negative for VTE; friend is visiting; on PSV and tolerating well; No N/V/F/C Objective Vital Signs - 12hr 10/22/18 10/22/18 10/22/18 04:00 04:09 05:00 Temperature 98.8 F Pulse Rate 88 87 87 Pulse Rate [ Bases] Pulse Rate [ 97 H From Monitor] Respiratory 19 17 Rate Respiratory Rate [Bases] Blood Pressure 125/79 125/79 121/67 O2 Sat by Pulse 97 100 94 Oximetry 10/22/18 10/22/18 10/22/18 06:00 07:00 07:58 Temperature Pulse Rate 90 91 H 90 Pulse Rate [ Bases] Pulse Rate [ From Monitor] Respiratory 17 19 20 Rate Respiratory Rate [Bases] Blood Pressure 137/83 127/79 139/85 O2 Sat by Pulse 96 96 98 Oximetry 10/22/18 10/22/18 10/22/18 08:00 08:40 08:46 Temperature 98.5 F Pulse Rate 94 H Pulse Rate [ 90 94 H Bases] Pulse Rate [ 88 From Monitor] Respiratory 19 Rate Respiratory 20 20 Rate [Bases] Blood Pressure 139/75 O2 Sat by Pulse 100 Oximetry 10/22/18 10/22/18 10/22/18 09:00 09:36 10:00 Temperature Pulse Rate 89 89 89 Pulse Rate [ Bases] Pulse Rate [ From Monitor] Respiratory 17 15 Rate Respiratory Rate [Bases] Blood Pressure 126/76 126/76 132/85 O2 Sat by Pulse 96 Oximetry 10/22/18 10/22/18 10/22/18 10:51 11:00 12:00 Temperature 98.8 F Pulse Rate 85 87 86 Pulse Rate [ Bases] Pulse Rate [ 84 From Monitor] Respiratory 18 20 17 Rate Respiratory Rate [Bases] Blood Pressure 113/80 131/76 O2 Sat by Pulse 96 99 100 Oximetry 10/22/18 10/22/18 10/22/18 13:00 13:32 13:38 Temperature Pulse Rate 87 Pulse Rate [ 88 89 Bases] Pulse Rate [ From Monitor] Respiratory 16 Rate Respiratory 18 20 Rate [Bases] Blood Pressure 129/71 O2 Sat by Pulse 96 Oximetry 10/22/18 10/22/18 10/22/18 14:00 15:00 15:10 Temperature Pulse Rate 83 87 88 Pulse Rate [ Bases] Pulse Rate [ From Monitor] Respiratory 14 19 22 Rate Respiratory Rate [Bases] Blood Pressure 119/70 113/77 O2 Sat by Pulse 97 98 96 Oximetry Constitutional: lethargic, agitated, appears uncomfortable, other (young looking AAM, normocephalic with mildly increased respiratory effort at rest) Eyes: non-icteric ENT: oropharynx moist, other (ETT 25 cm NIKA) Neck: supple, no lymphadenopathy, other (no thyromegaly) Effort: normal Ascultation: Bilateral: rales, rhonchi (scant) Percussion: Bilateral: not dull Cardiovascular: regular rate and rhythm, other (S1,S2, no murmurs, gallps or rubs) Gastrointestinal: normoactive bowel sounds, soft, non-tender, non-distended Integumentary: rash Extremities: no cyanosis, pulses normal, no ischemia or petechiae, edema (1+) Neurologic: non-focal exam (grossly), pupils equal and round, other (Left sided hemiparesis) Psychiatric: other (unable to assess) CBC and BMP: 10/19/18 14:54 10/21/18 06:00 ABG, PT/INR, D-dimer: ABG POC ABG pH 7.399 (7.35-7.45) 10/20/18 12:17 POC ABG pCO2 33.3 (35-45) L 10/20/18 12:17 POC ABG pO2 107 (80-105) H 10/20/18 12:17 POC ABG HCO3 20.6 10/20/18 12:17 POC ABG Total CO2 22 10/20/18 12:17 POC ABG O2 Sat 98 10/20/18 12:17 PT/INR, D-dimer PT 16.0 Sec. (12.2-14.9) H 10/10/18 08:09 INR 1.20 (0.87-1.13) H 10/10/18 08:09 Abnormal lab findings: Abnormal Labs 09/11/18 09/11/18 09/11/18 18:00 18:00 18:00 WBC 1.9 L* RBC Hgb Hct RDW Plt Count 130 L Seg Neuts % (Manual) Lymphocytes % (Manual) Monocytes % (Manual) 16.0 H Eosinophils % (Manual) Basophils % (Manual) Nucleated RBC % Seg Neutrophils # Man 0.9 L Abs Lymphs (Manual) Lymphocytes # (Manual) 0.5 L Basophils # (Manual) PT INR APTT Heparin Anti-Xa Level POC ABG pH POC ABG pCO2 POC ABG pO2 Sodium 131 L Potassium Chloride Carbon Dioxide 17 L BUN 21 H Creatinine Glucose 126 H POC Glucose Lactic Acid 2.60 H* Calcium 8.1 L Phosphorus Magnesium Iron TIBC Ferritin AST 123 H ALT 115 H Total Creatine Kinase Total Protein Albumin 3.0 L Vitamin B12 Folate TSH Free T4 Urine WBC (Auto) Urine Creatinine Urine Chloride Urine Total Protein CSF VDRL Lymph Enumerat CD4/CD8 Absolute CD3 Count % CD4 Cells Absolute CD4 Count % CD8 Cells Absolute CD19 Count T.pallidum Ab (FTA-ABS) HIV-1 RNA PCR copies/ml HIV-1 RNA (PCR) log Miscellaneous Test 09/11/18 09/13/18 09/13/18 19:01 04:28 07:31 WBC 2.0 L RBC Hgb Hct RDW Plt Count 116 L Seg Neuts % (Manual) Lymphocytes % (Manual) Monocytes % (Manual) 8.0 H Eosinophils % (Manual) Basophils % (Manual) Nucleated RBC % Seg Neutrophils # Man 1.0 L Abs Lymphs (Manual) Lymphocytes # (Manual) 0.5 L Basophils # (Manual) PT INR APTT Heparin Anti-Xa Level POC ABG pH POC ABG pCO2 POC ABG pO2 Sodium Potassium Chloride 110.4 H Carbon Dioxide 19 L BUN Creatinine Glucose POC Glucose Lactic Acid 3.70 H* Calcium 7.9 L Phosphorus Magnesium Iron TIBC Ferritin AST ALT Total Creatine Kinase Total Protein Albumin Vitamin B12 Folate TSH Free T4 Urine WBC (Auto) Urine Creatinine Urine Chloride Urine Total Protein CSF VDRL Lymph Enumerat CD4/CD8 Absolute CD3 Count % CD4 Cells Absolute CD4 Count % CD8 Cells Absolute CD19 Count T.pallidum Ab (FTA-ABS) HIV-1 RNA PCR copies/ml HIV-1 RNA (PCR) log Miscellaneous Test 09/13/18 09/13/18 09/13/18 07:31 12:29 12:29 WBC RBC Hgb Hct RDW Plt Count Seg Neuts % (Manual) Lymphocytes % (Manual) Monocytes % (Manual) Eosinophils % (Manual) Basophils % (Manual) Nucleated RBC % Seg Neutrophils # Man Abs Lymphs (Manual) 309 L Lymphocytes # (Manual) Basophils # (Manual) PT INR APTT Heparin Anti-Xa Level POC ABG pH POC ABG pCO2 POC ABG pO2 Sodium Potassium Chloride Carbon Dioxide BUN Creatinine Glucose POC Glucose Lactic Acid Calcium Phosphorus Magnesium Iron TIBC Ferritin AST 70 H ALT 68 H Total Creatine Kinase Total Protein Albumin 2.5 L Vitamin B12 Folate TSH Free T4 Urine WBC (Auto) Urine Creatinine Urine Chloride Urine Total Protein CSF VDRL Lymph Enumerat CD4/CD8 0.01 L Absolute CD3 Count 220 L % CD4 Cells 1 L Absolute CD4 Count 4 L % CD8 Cells 70 H Absolute CD19 Count 54 L T.pallidum Ab (FTA-ABS) HIV-1 RNA PCR copies/ml 38716 H HIV-1 RNA (PCR) log 4.71 H Miscellaneous Test 09/13/18 09/14/18 09/14/18 12:29 07:17 16:34 WBC RBC Hgb Hct RDW Plt Count Seg Neuts % (Manual) Lymphocytes % (Manual) Monocytes % (Manual) Eosinophils % (Manual) Basophils % (Manual) Nucleated RBC % Seg Neutrophils # Man Abs Lymphs (Manual) Lymphocytes # (Manual) Basophils # (Manual) PT INR APTT Heparin Anti-Xa Level POC ABG pH POC ABG pCO2 POC ABG pO2 Sodium Potassium 3.4 L Chloride Carbon Dioxide 18 L BUN Creatinine Glucose 104 H POC Glucose Lactic Acid Calcium 7.6 L Phosphorus Magnesium Iron TIBC Ferritin AST 49 H ALT Total Creatine Kinase Total Protein Albumin 2.5 L Vitamin B12 Folate TSH Free T4 Urine WBC (Auto) Urine Creatinine Urine Chloride Urine Total Protein CSF VDRL Lymph Enumerat CD4/CD8 Absolute CD3 Count % CD4 Cells Absolute CD4 Count % CD8 Cells Absolute CD19 Count T.pallidum Ab (FTA-ABS) Reactive H HIV-1 RNA PCR copies/ml HIV-1 RNA (PCR) log Miscellaneous Test Flexitest 1 H 09/15/18 09/15/18 09/15/18 05:05 05:05 Unknown WBC 1.6 L* RBC Hgb 10.4 L Hct 31.1 L D RDW Plt Count 113 L Seg Neuts % (Manual) Lymphocytes % (Manual) Monocytes % (Manual) Eosinophils % (Manual) Basophils % (Manual) Nucleated RBC % Seg Neutrophils # Man Abs Lymphs (Manual) Lymphocytes # (Manual) Basophils # (Manual) PT INR APTT Heparin Anti-Xa Level POC ABG pH POC ABG pCO2 POC ABG pO2 Sodium Potassium Chloride 107.9 H Carbon Dioxide 18 L BUN 6 L Creatinine Glucose POC Glucose Lactic Acid Calcium 7.4 L Phosphorus Magnesium Iron TIBC Ferritin AST ALT Total Creatine Kinase Total Protein Albumin Vitamin B12 Folate TSH Free T4 Urine WBC (Auto) Urine Creatinine Urine Chloride Urine Total Protein CSF VDRL Reactive 1:8 H Lymph Enumerat CD4/CD8 Absolute CD3 Count % CD4 Cells Absolute CD4 Count % CD8 Cells Absolute CD19 Count T.pallidum Ab (FTA-ABS) HIV-1 RNA PCR copies/ml HIV-1 RNA (PCR) log Miscellaneous Test 09/16/18 09/16/18 09/16/18 06:55 11:41 11:41 WBC 2.8 L RBC Hgb 10.9 L Hct 33.5 L RDW Plt Count 135 L Seg Neuts % (Manual) Lymphocytes % (Manual) Monocytes % (Manual) Eosinophils % (Manual) Basophils % (Manual) Nucleated RBC % Seg Neutrophils # Man Abs Lymphs (Manual) Lymphocytes # (Manual) Basophils # (Manual) PT INR APTT Heparin Anti-Xa Level POC ABG pH POC ABG pCO2 POC ABG pO2 Sodium Potassium Chloride Carbon Dioxide BUN Creatinine Glucose POC Glucose Lactic Acid Calcium Phosphorus Magnesium Iron TIBC Ferritin AST ALT Total Creatine Kinase Total Protein Albumin Vitamin B12 Folate TSH 4.210 H Free T4 0.72 L Urine WBC (Auto) Urine Creatinine Urine Chloride Urine Total Protein CSF VDRL Lymph Enumerat CD4/CD8 Absolute CD3 Count % CD4 Cells Absolute CD4 Count % CD8 Cells Absolute CD19 Count T.pallidum Ab (FTA-ABS) HIV-1 RNA PCR copies/ml HIV-1 RNA (PCR) log Miscellaneous Test 09/16/18 09/16/18 09/17/18 11:41 15:43 05:13 WBC 2.0 L RBC Hgb 10.9 L Hct 32.7 L RDW Plt Count Seg Neuts % (Manual) Lymphocytes % (Manual) Monocytes % (Manual) Eosinophils % (Manual) Basophils % (Manual) Nucleated RBC % Seg Neutrophils # Man Abs Lymphs (Manual) Lymphocytes # (Manual) Basophils # (Manual) PT INR APTT Heparin Anti-Xa Level POC ABG pH POC ABG pCO2 29.3 L POC ABG pO2 70 L Sodium Potassium Chloride Carbon Dioxide BUN Creatinine Glucose POC Glucose Lactic Acid Calcium Phosphorus Magnesium Iron TIBC Ferritin AST ALT Total Creatine Kinase Total Protein Albumin Vitamin B12 934.5 H Folate TSH Free T4 Urine WBC (Auto) Urine Creatinine Urine Chloride Urine Total Protein CSF VDRL Lymph Enumerat CD4/CD8 Absolute CD3 Count % CD4 Cells Absolute CD4 Count % CD8 Cells Absolute CD19 Count T.pallidum Ab (FTA-ABS) HIV-1 RNA PCR copies/ml HIV-1 RNA (PCR) log Miscellaneous Test 09/17/18 09/17/18 09/18/18 05:13 21:57 12:46 WBC RBC Hgb Hct RDW Plt Count Seg Neuts % (Manual) Lymphocytes % (Manual) Monocytes % (Manual) Eosinophils % (Manual) Basophils % (Manual) Nucleated RBC % Seg Neutrophils # Man Abs Lymphs (Manual) Lymphocytes # (Manual) Basophils # (Manual) PT INR APTT Heparin Anti-Xa Level POC ABG pH POC ABG pCO2 POC ABG pO2 Sodium Potassium Chloride 107.2 H Carbon Dioxide 21 L BUN 3 L Creatinine 0.7 L Glucose POC Glucose 108 H Lactic Acid Calcium 7.9 L Phosphorus Magnesium Iron TIBC Ferritin AST ALT Total Creatine Kinase Total Protein 6.1 L Albumin 2.6 L Vitamin B12 Folate TSH Free T4 0.75 L Urine WBC (Auto) Urine Creatinine Urine Chloride Urine Total Protein CSF VDRL Lymph Enumerat CD4/CD8 Absolute CD3 Count % CD4 Cells Absolute CD4 Count % CD8 Cells Absolute CD19 Count T.pallidum Ab (FTA-ABS) HIV-1 RNA PCR copies/ml HIV-1 RNA (PCR) log Miscellaneous Test 09/18/18 09/19/18 09/19/18 12:46 04:57 04:57 WBC 2.1 L RBC Hgb 11.4 L Hct 34.2 L RDW Plt Count Seg Neuts % (Manual) Lymphocytes % (Manual) Monocytes % (Manual) Eosinophils % (Manual) Basophils % (Manual) Nucleated RBC % Seg Neutrophils # Man Abs Lymphs (Manual) Lymphocytes # (Manual) Basophils # (Manual) PT INR APTT Heparin Anti-Xa Level POC ABG pH POC ABG pCO2 POC ABG pO2 Sodium Potassium Chloride Carbon Dioxide 19 L BUN 6 L Creatinine Glucose POC Glucose Lactic Acid Calcium 7.9 L Phosphorus Magnesium Iron TIBC Ferritin AST ALT Total Creatine Kinase Total Protein Albumin Vitamin B12 Folate TSH 5.190 H Free T4 Urine WBC (Auto) Urine Creatinine Urine Chloride Urine Total Protein CSF VDRL Lymph Enumerat CD4/CD8 Absolute CD3 Count % CD4 Cells Absolute CD4 Count % CD8 Cells Absolute CD19 Count T.pallidum Ab (FTA-ABS) HIV-1 RNA PCR copies/ml HIV-1 RNA (PCR) log Miscellaneous Test 09/19/18 09/19/18 09/20/18 15:00 15:00 05:33 WBC RBC Hgb Hct RDW Plt Count Seg Neuts % (Manual) Lymphocytes % (Manual) Monocytes % (Manual) Eosinophils % (Manual) Basophils % (Manual) Nucleated RBC % Seg Neutrophils # Man Abs Lymphs (Manual) Lymphocytes # (Manual) Basophils # (Manual) PT INR APTT Heparin Anti-Xa Level POC ABG pH POC ABG pCO2 POC ABG pO2 Sodium 136 L Potassium Chloride Carbon Dioxide 19 L BUN 7 L Creatinine Glucose POC Glucose Lactic Acid Calcium Phosphorus Magnesium Iron TIBC Ferritin AST ALT Total Creatine Kinase Total Protein Albumin Vitamin B12 Folate TSH Free T4 Urine WBC (Auto) Urine Creatinine Urine Chloride Urine Total Protein CSF VDRL Reactive 1:4 H Lymph Enumerat CD4/CD8 Absolute CD3 Count % CD4 Cells Absolute CD4 Count % CD8 Cells Absolute CD19 Count T.pallidum Ab (FTA-ABS) HIV-1 RNA PCR copies/ml HIV-1 RNA (PCR) log Miscellaneous Test Flexitest 1 H 09/20/18 09/21/18 09/21/18 06:52 01:06 03:49 WBC 2.5 L RBC Hgb Hct RDW Plt Count Seg Neuts % (Manual) Lymphocytes % (Manual) Monocytes % (Manual) Eosinophils % (Manual) Basophils % (Manual) Nucleated RBC % Seg Neutrophils # Man Abs Lymphs (Manual) Lymphocytes # (Manual) Basophils # (Manual) PT INR APTT Heparin Anti-Xa Level POC ABG pH 7.159 L POC ABG pCO2 32.9 L 70.0 H POC ABG pO2 62 L 254 H Sodium Potassium Chloride Carbon Dioxide BUN Creatinine Glucose POC Glucose Lactic Acid Calcium Phosphorus Magnesium Iron TIBC Ferritin AST ALT Total Creatine Kinase Total Protein Albumin Vitamin B12 Folate TSH Free T4 Urine WBC (Auto) Urine Creatinine Urine Chloride Urine Total Protein CSF VDRL Lymph Enumerat CD4/CD8 Absolute CD3 Count % CD4 Cells Absolute CD4 Count % CD8 Cells Absolute CD19 Count T.pallidum Ab (FTA-ABS) HIV-1 RNA PCR copies/ml HIV-1 RNA (PCR) log Miscellaneous Test 09/21/18 09/21/18 09/21/18 04:15 04:15 04:25 WBC 3.1 L RBC Hgb 11.6 L Hct RDW Plt Count Seg Neuts % (Manual) Lymphocytes % (Manual) Monocytes % (Manual) 12.0 H Eosinophils % (Manual) Basophils % (Manual) Nucleated RBC % Seg Neutrophils # Man 1.6 L Abs Lymphs (Manual) Lymphocytes # (Manual) 0.5 L Basophils # (Manual) PT INR APTT Heparin Anti-Xa Level POC ABG pH POC ABG pCO2 POC ABG pO2 Sodium Potassium 6.1 H* D Chloride Carbon Dioxide 19 L BUN Creatinine Glucose 108 H POC Glucose Lactic Acid Calcium Phosphorus Magnesium Iron TIBC Ferritin AST ALT Total Creatine Kinase 685 H Total Protein Albumin Vitamin B12 Folate TSH Free T4 Urine WBC (Auto) Urine Creatinine Urine Chloride Urine Total Protein CSF VDRL Lymph Enumerat CD4/CD8 Absolute CD3 Count % CD4 Cells Absolute CD4 Count % CD8 Cells Absolute CD19 Count T.pallidum Ab (FTA-ABS) HIV-1 RNA PCR copies/ml HIV-1 RNA (PCR) log Miscellaneous Test 09/21/18 09/21/18 09/21/18 09:59 10:07 11:00 WBC RBC Hgb 11.7 L Hct RDW Plt Count Seg Neuts % (Manual) Lymphocytes % (Manual) Monocytes % (Manual) Eosinophils % (Manual) Basophils % (Manual) Nucleated RBC % Seg Neutrophils # Man Abs Lymphs (Manual) Lymphocytes # (Manual) Basophils # (Manual) PT INR APTT Heparin Anti-Xa Level POC ABG pH 7.301 L POC ABG pCO2 POC ABG pO2 109 H Sodium Potassium 6.5 H* Chloride Carbon Dioxide 18 L BUN Creatinine 2.1 H D Glucose POC Glucose Lactic Acid Calcium 8.1 L Phosphorus Magnesium Iron TIBC Ferritin AST 94 H ALT Total Creatine Kinase Total Protein Albumin 2.8 L Vitamin B12 Folate TSH Free T4 Urine WBC (Auto) Urine Creatinine Urine Chloride Urine Total Protein CSF VDRL Lymph Enumerat CD4/CD8 Absolute CD3 Count % CD4 Cells Absolute CD4 Count % CD8 Cells Absolute CD19 Count T.pallidum Ab (FTA-ABS) HIV-1 RNA PCR copies/ml HIV-1 RNA (PCR) log Miscellaneous Test 0209/21/18 09/21/18 15:00 21:54 21:54 WBC RBC Hgb Hct RDW Plt Count Seg Neuts % (Manual) Lymphocytes % (Manual) Monocytes % (Manual) Eosinophils % (Manual) Basophils % (Manual) Nucleated RBC % Seg Neutrophils # Man Abs Lymphs (Manual) Lymphocytes # (Manual) Basophils # (Manual) PT 19.9 H INR 1.65 H APTT 40.9 H Heparin Anti-Xa Level 0.98 H POC ABG pH POC ABG pCO2 POC ABG pO2 Sodium Potassium 5.2 H Chloride Carbon Dioxide BUN Creatinine Glucose POC Glucose Lactic Acid Calcium Phosphorus Magnesium Iron TIBC Ferritin AST ALT Total Creatine Kinase Total Protein Albumin Vitamin B12 Folate TSH Free T4 Urine WBC (Auto) Urine Creatinine Urine Chloride Urine Total Protein CSF VDRL Lymph Enumerat CD4/CD8 Absolute CD3 Count % CD4 Cells Absolute CD4 Count % CD8 Cells Absolute CD19 Count T.pallidum Ab (FTA-ABS) HIV-1 RNA PCR copies/ml HIV-1 RNA (PCR) log Miscellaneous Test 09/21/18 09/22/18 09/22/18 22:57 03:01 05:27 WBC RBC Hgb Hct RDW Plt Count Seg Neuts % (Manual) Lymphocytes % (Manual) Monocytes % (Manual) Eosinophils % (Manual) Basophils % (Manual) Nucleated RBC % Seg Neutrophils # Man Abs Lymphs (Manual) Lymphocytes # (Manual) Basophils # (Manual) PT INR APTT Heparin Anti-Xa Level POC ABG pH POC ABG pCO2 32.7 L POC ABG pO2 Sodium Potassium Chloride Carbon Dioxide BUN Creatinine Glucose POC Glucose 124 H 128 H Lactic Acid Calcium Phosphorus Magnesium Iron TIBC Ferritin AST ALT Total Creatine Kinase Total Protein Albumin Vitamin B12 Folate TSH Free T4 Urine WBC (Auto) Urine Creatinine Urine Chloride Urine Total Protein CSF VDRL Lymph Enumerat CD4/CD8 Absolute CD3 Count % CD4 Cells Absolute CD4 Count % CD8 Cells Absolute CD19 Count T.pallidum Ab (FTA-ABS) HIV-1 RNA PCR copies/ml HIV-1 RNA (PCR) log Miscellaneous Test 09/22/18 09/22/18 09/22/18 07:00 07:00 11:32 WBC 1.8 L* RBC 3.59 L Hgb 10.1 L Hct 30.8 L RDW Plt Count 126 L Seg Neuts % (Manual) Lymphocytes % (Manual) Monocytes % (Manual) Eosinophils % (Manual) Basophils % (Manual) Nucleated RBC % Seg Neutrophils # Man Abs Lymphs (Manual) Lymphocytes # (Manual) Basophils # (Manual) PT INR APTT Heparin Anti-Xa Level POC ABG pH POC ABG pCO2 POC ABG pO2 Sodium Potassium Chloride Carbon Dioxide BUN 27 H Creatinine 2.0 H Glucose 128 H POC Glucose 123 H Lactic Acid Calcium 6.9 L Phosphorus Magnesium Iron TIBC Ferritin AST ALT Total Creatine Kinase Total Protein Albumin Vitamin B12 Folate TSH Free T4 Urine WBC (Auto) Urine Creatinine Urine Chloride Urine Total Protein CSF VDRL Lymph Enumerat CD4/CD8 Absolute CD3 Count % CD4 Cells Absolute CD4 Count % CD8 Cells Absolute CD19 Count T.pallidum Ab (FTA-ABS) HIV-1 RNA PCR copies/ml HIV-1 RNA (PCR) log Miscellaneous Test 09/22/18 09/22/18 09/22/18 15:52 18:18 23:52 WBC RBC Hgb Hct RDW Plt Count Seg Neuts % (Manual) Lymphocytes % (Manual) Monocytes % (Manual) Eosinophils % (Manual) Basophils % (Manual) Nucleated RBC % Seg Neutrophils # Man Abs Lymphs (Manual) Lymphocytes # (Manual) Basophils # (Manual) PT INR APTT Heparin Anti-Xa Level POC ABG pH POC ABG pCO2 48.7 H POC ABG pO2 Sodium Potassium Chloride Carbon Dioxide BUN Creatinine Glucose POC Glucose 110 H 124 H Lactic Acid Calcium Phosphorus Magnesium Iron TIBC Ferritin AST ALT Total Creatine Kinase Total Protein Albumin Vitamin B12 Folate TSH Free T4 Urine WBC (Auto) Urine Creatinine Urine Chloride Urine Total Protein CSF VDRL Lymph Enumerat CD4/CD8 Absolute CD3 Count % CD4 Cells Absolute CD4 Count % CD8 Cells Absolute CD19 Count T.pallidum Ab (FTA-ABS) HIV-1 RNA PCR copies/ml HIV-1 RNA (PCR) log Miscellaneous Test 09/23/18 09/23/18 09/23/18 04:10 05:55 05:55 WBC RBC Hgb 10.0 L Hct 30.3 L RDW Plt Count 117 L Seg Neuts % (Manual) Lymphocytes % (Manual) Monocytes % (Manual) Eosinophils % (Manual) Basophils % (Manual) Nucleated RBC % Seg Neutrophils # Man Abs Lymphs (Manual) Lymphocytes # (Manual) Basophils # (Manual) PT INR APTT Heparin Anti-Xa Level 0.26 L POC ABG pH POC ABG pCO2 POC ABG pO2 144 H Sodium Potassium Chloride Carbon Dioxide BUN Creatinine Glucose POC Glucose Lactic Acid Calcium Phosphorus Magnesium Iron TIBC Ferritin AST ALT Total Creatine Kinase Total Protein Albumin Vitamin B12 Folate TSH Free T4 Urine WBC (Auto) Urine Creatinine Urine Chloride Urine Total Protein CSF VDRL Lymph Enumerat CD4/CD8 Absolute CD3 Count % CD4 Cells Absolute CD4 Count % CD8 Cells Absolute CD19 Count T.pallidum Ab (FTA-ABS) HIV-1 RNA PCR copies/ml HIV-1 RNA (PCR) log Miscellaneous Test 09/23/18 09/23/18 09/23/18 08:10 08:10 23:57 WBC 1.3 L* RBC 3.53 L Hgb 9.9 L Hct 30.0 L RDW Plt Count 119 L Seg Neuts % (Manual) Lymphocytes % (Manual) Monocytes % (Manual) Eosinophils % (Manual) Basophils % (Manual) Nucleated RBC % Seg Neutrophils # Man Abs Lymphs (Manual) Lymphocytes # (Manual) Basophils # (Manual) PT INR APTT Heparin Anti-Xa Level POC ABG pH POC ABG pCO2 POC ABG pO2 Sodium Potassium Chloride Carbon Dioxide BUN Creatinine Glucose 122 H POC Glucose 115 H Lactic Acid Calcium 6.9 L Phosphorus Magnesium Iron TIBC Ferritin AST ALT Total Creatine Kinase Total Protein Albumin Vitamin B12 Folate TSH Free T4 Urine WBC (Auto) Urine Creatinine Urine Chloride Urine Total Protein CSF VDRL Lymph Enumerat CD4/CD8 Absolute CD3 Count % CD4 Cells Absolute CD4 Count % CD8 Cells Absolute CD19 Count T.pallidum Ab (FTA-ABS) HIV-1 RNA PCR copies/ml HIV-1 RNA (PCR) log Miscellaneous Test 09/24/18 09/24/18 09/24/18 12:04 14:42 18:10 WBC RBC Hgb Hct RDW Plt Count Seg Neuts % (Manual) Lymphocytes % (Manual) Monocytes % (Manual) Eosinophils % (Manual) Basophils % (Manual) Nucleated RBC % Seg Neutrophils # Man Abs Lymphs (Manual) Lymphocytes # (Manual) Basophils # (Manual) PT INR APTT Heparin Anti-Xa Level 0.76 H POC ABG pH POC ABG pCO2 POC ABG pO2 Sodium Potassium Chloride Carbon Dioxide BUN Creatinine Glucose POC Glucose 111 H 138 H Lactic Acid Calcium Phosphorus Magnesium Iron TIBC Ferritin AST ALT Total Creatine Kinase Total Protein Albumin Vitamin B12 Folate TSH Free T4 Urine WBC (Auto) Urine Creatinine Urine Chloride Urine Total Protein CSF VDRL Lymph Enumerat CD4/CD8 Absolute CD3 Count % CD4 Cells Absolute CD4 Count % CD8 Cells Absolute CD19 Count T.pallidum Ab (FTA-ABS) HIV-1 RNA PCR copies/ml HIV-1 RNA (PCR) log Miscellaneous Test 09/25/18 09/25/18 09/25/18 03:45 04:24 14:20 WBC RBC Hgb 9.7 L Hct 29.4 L RDW Plt Count 104 L Seg Neuts % (Manual) Lymphocytes % (Manual) Monocytes % (Manual) Eosinophils % (Manual) Basophils % (Manual) Nucleated RBC % Seg Neutrophils # Man Abs Lymphs (Manual) Lymphocytes # (Manual) Basophils # (Manual) PT INR APTT Heparin Anti-Xa Level POC ABG pH 7.460 H POC ABG pCO2 32.9 L POC ABG pO2 Sodium Potassium 3.5 L Chloride 110.3 H Carbon Dioxide BUN Creatinine Glucose 105 H POC Glucose Lactic Acid Calcium 6.7 L Phosphorus Magnesium Iron TIBC Ferritin AST 633 H ALT 481 H Total Creatine Kinase Total Protein 4.8 L D Albumin 1.9 L Vitamin B12 Folate TSH Free T4 Urine WBC (Auto) Urine Creatinine Urine Chloride Urine Total Protein CSF VDRL Lymph Enumerat CD4/CD8 Absolute CD3 Count % CD4 Cells Absolute CD4 Count % CD8 Cells Absolute CD19 Count T.pallidum Ab (FTA-ABS) HIV-1 RNA PCR copies/ml HIV-1 RNA (PCR) log Miscellaneous Test 09/26/18 09/26/18 09/26/18 06:15 06:15 10:43 WBC 1.2 L* RBC 3.32 L Hgb 9.2 L Hct 28.6 L RDW Plt Count 97 L Seg Neuts % (Manual) 24.0 L Lymphocytes % (Manual) 43.0 H Monocytes % (Manual) 19.0 H Eosinophils % (Manual) 8.0 H Basophils % (Manual) 2.0 H Nucleated RBC % 3.0 H Seg Neutrophils # Man 0.0 L Abs Lymphs (Manual) Lymphocytes # (Manual) 0.0 L Basophils # (Manual) PT INR APTT Heparin Anti-Xa Level POC ABG pH 7.459 H POC ABG pCO2 POC ABG pO2 141 H Sodium Potassium Chloride 112.8 H Carbon Dioxide BUN Creatinine Glucose 110 H POC Glucose Lactic Acid Calcium 7.0 L Phosphorus 0.90 L* Magnesium Iron TIBC Ferritin AST 362 H ALT 360 H Total Creatine Kinase Total Protein 4.9 L Albumin 1.5 L Vitamin B12 Folate TSH Free T4 Urine WBC (Auto) Urine Creatinine Urine Chloride Urine Total Protein CSF VDRL Lymph Enumerat CD4/CD8 Absolute CD3 Count % CD4 Cells Absolute CD4 Count % CD8 Cells Absolute CD19 Count T.pallidum Ab (FTA-ABS) HIV-1 RNA PCR copies/ml HIV-1 RNA (PCR) log Miscellaneous Test 09/26/18 09/27/18 09/28/18 13:56 04:11 07:49 WBC RBC Hgb 9.1 L Hct 29.1 L RDW Plt Count 96 L Seg Neuts % (Manual) Lymphocytes % (Manual) Monocytes % (Manual) Eosinophils % (Manual) Basophils % (Manual) Nucleated RBC % Seg Neutrophils # Man Abs Lymphs (Manual) Lymphocytes # (Manual) Basophils # (Manual) PT INR APTT Heparin Anti-Xa Level POC ABG pH POC ABG pCO2 POC ABG pO2 Sodium 146 H Potassium Chloride 111.6 H Carbon Dioxide BUN Creatinine Glucose POC Glucose 135 H Lactic Acid Calcium 7.4 L Phosphorus Magnesium Iron TIBC Ferritin AST ALT Total Creatine Kinase Total Protein Albumin Vitamin B12 Folate TSH Free T4 Urine WBC (Auto) Urine Creatinine Urine Chloride Urine Total Protein CSF VDRL Lymph Enumerat CD4/CD8 Absolute CD3 Count % CD4 Cells Absolute CD4 Count % CD8 Cells Absolute CD19 Count T.pallidum Ab (FTA-ABS) HIV-1 RNA PCR copies/ml HIV-1 RNA (PCR) log Miscellaneous Test 09/28/18 09/29/18 09/29/18 10:43 05:00 05:00 WBC 1.2 L* RBC 3.13 L Hgb 8.6 L Hct 27.3 L RDW Plt Count 137 L Seg Neuts % (Manual) Lymphocytes % (Manual) Monocytes % (Manual) 16.0 H Eosinophils % (Manual) Basophils % (Manual) Nucleated RBC % 4.0 H Seg Neutrophils # Man 0.5 L Abs Lymphs (Manual) Lymphocytes # (Manual) 0.3 L Basophils # (Manual) PT INR APTT Heparin Anti-Xa Level POC ABG pH 7.300 L POC ABG pCO2 53.9 H POC ABG pO2 Sodium 147 H Potassium 3.4 L Chloride 114.5 H Carbon Dioxide BUN Creatinine Glucose POC Glucose Lactic Acid Calcium 7.7 L Phosphorus Magnesium Iron TIBC Ferritin AST 69 H ALT 110 H Total Creatine Kinase Total Protein 5.2 L Albumin 1.9 L Vitamin B12 Folate TSH Free T4 Urine WBC (Auto) Urine Creatinine Urine Chloride Urine Total Protein CSF VDRL Lymph Enumerat CD4/CD8 Absolute CD3 Count % CD4 Cells Absolute CD4 Count % CD8 Cells Absolute CD19 Count T.pallidum Ab (FTA-ABS) HIV-1 RNA PCR copies/ml HIV-1 RNA (PCR) log Miscellaneous Test 09/29/18 09/29/18 09/30/18 06:07 13:22 05:19 WBC 0.9 L* RBC 3.03 L Hgb 8.6 L Hct 25.9 L RDW Plt Count Seg Neuts % (Manual) Lymphocytes % (Manual) Monocytes % (Manual) Eosinophils % (Manual) Basophils % (Manual) Nucleated RBC % Seg Neutrophils # Man Abs Lymphs (Manual) Lymphocytes # (Manual) Basophils # (Manual) PT INR APTT Heparin Anti-Xa Level POC ABG pH POC ABG pCO2 46.9 H POC ABG pO2 Sodium Potassium Chloride Carbon Dioxide BUN Creatinine Glucose POC Glucose 109 H Lactic Acid Calcium Phosphorus Magnesium Iron TIBC Ferritin AST ALT Total Creatine Kinase Total Protein Albumin Vitamin B12 Folate TSH Free T4 Urine WBC (Auto) Urine Creatinine Urine Chloride Urine Total Protein CSF VDRL Lymph Enumerat CD4/CD8 Absolute CD3 Count % CD4 Cells Absolute CD4 Count % CD8 Cells Absolute CD19 Count T.pallidum Ab (FTA-ABS) HIV-1 RNA PCR copies/ml HIV-1 RNA (PCR) log Miscellaneous Test 09/30/18 09/30/18 09/30/18 05:19 11:14 23:28 WBC RBC Hgb Hct RDW Plt Count Seg Neuts % (Manual) Lymphocytes % (Manual) Monocytes % (Manual) Eosinophils % (Manual) Basophils % (Manual) Nucleated RBC % Seg Neutrophils # Man Abs Lymphs (Manual) Lymphocytes # (Manual) Basophils # (Manual) PT INR APTT Heparin Anti-Xa Level 0.72 H POC ABG pH POC ABG pCO2 46.6 H POC ABG pO2 Sodium 150 H Potassium Chloride 115.2 H Carbon Dioxide BUN Creatinine Glucose POC Glucose Lactic Acid Calcium 7.9 L Phosphorus Magnesium Iron TIBC Ferritin AST ALT Total Creatine Kinase Total Protein Albumin Vitamin B12 Folate TSH Free T4 Urine WBC (Auto) Urine Creatinine Urine Chloride Urine Total Protein CSF VDRL Lymph Enumerat CD4/CD8 Absolute CD3 Count % CD4 Cells Absolute CD4 Count % CD8 Cells Absolute CD19 Count T.pallidum Ab (FTA-ABS) HIV-1 RNA PCR copies/ml HIV-1 RNA (PCR) log Miscellaneous Test 10/01/18 10/01/18 10/02/18 04:55 04:55 07:15 WBC 0.9 L* 0.7 L* RBC 3.01 L 2.92 L Hgb 8.4 L 8.4 L Hct 26.0 L 24.9 L RDW Plt Count Seg Neuts % (Manual) Lymphocytes % (Manual) Monocytes % (Manual) Eosinophils % (Manual) Basophils % (Manual) Nucleated RBC % Seg Neutrophils # Man Abs Lymphs (Manual) Lymphocytes # (Manual) Basophils # (Manual) PT INR APTT Heparin Anti-Xa Level POC ABG pH POC ABG pCO2 POC ABG pO2 Sodium 147 H Potassium 3.4 L Chloride 113.1 H Carbon Dioxide BUN 22 H Creatinine Glucose POC Glucose Lactic Acid Calcium 7.3 L Phosphorus Magnesium Iron TIBC Ferritin AST ALT Total Creatine Kinase Total Protein Albumin Vitamin B12 Folate TSH Free T4 Urine WBC (Auto) Urine Creatinine Urine Chloride Urine Total Protein CSF VDRL Lymph Enumerat CD4/CD8 Absolute CD3 Count % CD4 Cells Absolute CD4 Count % CD8 Cells Absolute CD19 Count T.pallidum Ab (FTA-ABS) HIV-1 RNA PCR copies/ml HIV-1 RNA (PCR) log Miscellaneous Test 10/02/18 10/03/18 10/03/18 07:15 06:12 06:12 WBC 0.8 L* RBC 2.96 L Hgb 8.5 L Hct 25.9 L RDW 15.4 H Plt Count Seg Neuts % (Manual) Lymphocytes % (Manual) Monocytes % (Manual) Eosinophils % (Manual) Basophils % (Manual) Nucleated RBC % Seg Neutrophils # Man Abs Lymphs (Manual) Lymphocytes # (Manual) Basophils # (Manual) PT INR APTT Heparin Anti-Xa Level POC ABG pH POC ABG pCO2 POC ABG pO2 Sodium Potassium 3.4 L 3.4 L Chloride 108.3 H Carbon Dioxide BUN Creatinine Glucose POC Glucose Lactic Acid Calcium 7.6 L 7.4 L Phosphorus Magnesium Iron TIBC Ferritin AST ALT Total Creatine Kinase Total Protein Albumin Vitamin B12 Folate TSH Free T4 Urine WBC (Auto) Urine Creatinine Urine Chloride Urine Total Protein CSF VDRL Lymph Enumerat CD4/CD8 Absolute CD3 Count % CD4 Cells Absolute CD4 Count % CD8 Cells Absolute CD19 Count T.pallidum Ab (FTA-ABS) HIV-1 RNA PCR copies/ml HIV-1 RNA (PCR) log Miscellaneous Test 10/03/18 10/03/18 10/04/18 11:45 13:23 01:40 WBC RBC Hgb Hct RDW Plt Count Seg Neuts % (Manual) Lymphocytes % (Manual) Monocytes % (Manual) Eosinophils % (Manual) Basophils % (Manual) Nucleated RBC % Seg Neutrophils # Man Abs Lymphs (Manual) Lymphocytes # (Manual) Basophils # (Manual) PT INR APTT Heparin Anti-Xa Level 1.34 H 0.26 L POC ABG pH POC ABG pCO2 POC ABG pO2 Sodium Potassium Chloride Carbon Dioxide BUN Creatinine Glucose POC Glucose Lactic Acid Calcium Phosphorus Magnesium 1.40 L Iron TIBC Ferritin AST ALT Total Creatine Kinase Total Protein Albumin Vitamin B12 Folate TSH Free T4 Urine WBC (Auto) Urine Creatinine Urine Chloride Urine Total Protein CSF VDRL Lymph Enumerat CD4/CD8 Absolute CD3 Count % CD4 Cells Absolute CD4 Count % CD8 Cells Absolute CD19 Count T.pallidum Ab (FTA-ABS) HIV-1 RNA PCR copies/ml HIV-1 RNA (PCR) log Miscellaneous Test 10/04/18 10/04/18 10/06/18 04:45 04:45 09:40 WBC 0.8 L* RBC 3.11 L Hgb 9.0 L Hct 27.4 L RDW 15.4 H Plt Count Seg Neuts % (Manual) Lymphocytes % (Manual) Monocytes % (Manual) Eosinophils % (Manual) Basophils % (Manual) Nucleated RBC % Seg Neutrophils # Man Abs Lymphs (Manual) Lymphocytes # (Manual) Basophils # (Manual) PT INR APTT Heparin Anti-Xa Level POC ABG pH POC ABG pCO2 POC ABG pO2 Sodium Potassium Chloride Carbon Dioxide BUN Creatinine 0.7 L Glucose POC Glucose Lactic Acid Calcium 7.5 L Phosphorus Magnesium Iron 35 L TIBC 157 L Ferritin AST ALT Total Creatine Kinase Total Protein Albumin Vitamin B12 Folate TSH Free T4 Urine WBC (Auto) Urine Creatinine Urine Chloride Urine Total Protein CSF VDRL Lymph Enumerat CD4/CD8 Absolute CD3 Count % CD4 Cells Absolute CD4 Count % CD8 Cells Absolute CD19 Count T.pallidum Ab (FTA-ABS) HIV-1 RNA PCR copies/ml HIV-1 RNA (PCR) log Miscellaneous Test 10/06/18 10/06/18 10/07/18 09:40 09:40 04:20 WBC 1.1 L* RBC 3.07 L Hgb 9.1 L Hct 27.3 L RDW 20.3 H Plt Count Seg Neuts % (Manual) Lymphocytes % (Manual) Monocytes % (Manual) Eosinophils % (Manual) Basophils % (Manual) Nucleated RBC % Seg Neutrophils # Man 0.7 L Abs Lymphs (Manual) Lymphocytes # (Manual) 0.3 L Basophils # (Manual) PT INR APTT Heparin Anti-Xa Level POC ABG pH POC ABG pCO2 POC ABG pO2 Sodium Potassium Chloride Carbon Dioxide BUN Creatinine Glucose POC Glucose Lactic Acid Calcium Phosphorus Magnesium Iron TIBC Ferritin 1126.0 H AST ALT Total Creatine Kinase Total Protein Albumin Vitamin B12 Folate 6.71 L TSH Free T4 Urine WBC (Auto) Urine Creatinine Urine Chloride Urine Total Protein CSF VDRL Lymph Enumerat CD4/CD8 Absolute CD3 Count % CD4 Cells Absolute CD4 Count % CD8 Cells Absolute CD19 Count T.pallidum Ab (FTA-ABS) HIV-1 RNA PCR copies/ml HIV-1 RNA (PCR) log Miscellaneous Test 10/07/18 10/07/18 10/09/18 04:20 15:38 04:20 WBC 1.1 L* RBC 3.35 L Hgb 9.9 L Hct 30.1 L RDW 21.4 H Plt Count Seg Neuts % (Manual) 19.0 L Lymphocytes % (Manual) 42.0 H Monocytes % (Manual) 18.0 H Eosinophils % (Manual) 15.0 H Basophils % (Manual) 2.0 H Nucleated RBC % Seg Neutrophils # Man 0.2 L Abs Lymphs (Manual) Lymphocytes # (Manual) 0.5 L Basophils # (Manual) PT INR APTT Heparin Anti-Xa Level POC ABG pH 7.516 H POC ABG pCO2 32.1 L POC ABG pO2 Sodium Potassium Chloride Carbon Dioxide BUN Creatinine 0.7 L Glucose POC Glucose Lactic Acid Calcium 7.9 L Phosphorus Magnesium Iron TIBC Ferritin AST ALT Total Creatine Kinase Total Protein 5.5 L Albumin 2.2 L Vitamin B12 Folate TSH Free T4 Urine WBC (Auto) Urine Creatinine Urine Chloride Urine Total Protein CSF VDRL Lymph Enumerat CD4/CD8 Absolute CD3 Count % CD4 Cells Absolute CD4 Count % CD8 Cells Absolute CD19 Count T.pallidum Ab (FTA-ABS) HIV-1 RNA PCR copies/ml HIV-1 RNA (PCR) log Miscellaneous Test 10/09/18 10/09/18 10/09/18 04:20 11:48 17:31 WBC RBC Hgb Hct RDW Plt Count Seg Neuts % (Manual) Lymphocytes % (Manual) Monocytes % (Manual) Eosinophils % (Manual) Basophils % (Manual) Nucleated RBC % Seg Neutrophils # Man Abs Lymphs (Manual) Lymphocytes # (Manual) Basophils # (Manual) PT INR APTT Heparin Anti-Xa Level POC ABG pH POC ABG pCO2 POC ABG pO2 Sodium Potassium 5.4 H Chloride Carbon Dioxide 21 L BUN 55 H 72 H Creatinine 3.8 H D 4.5 H Glucose 118 H POC Glucose 124 H Lactic Acid Calcium 8.3 L 8.2 L Phosphorus Magnesium Iron TIBC Ferritin AST ALT Total Creatine Kinase Total Protein Albumin Vitamin B12 Folate TSH Free T4 Urine WBC (Auto) Urine Creatinine Urine Chloride Urine Total Protein CSF VDRL Lymph Enumerat CD4/CD8 Absolute CD3 Count % CD4 Cells Absolute CD4 Count % CD8 Cells Absolute CD19 Count T.pallidum Ab (FTA-ABS) HIV-1 RNA PCR copies/ml HIV-1 RNA (PCR) log Miscellaneous Test 10/10/18 10/10/18 10/10/18 08:09 08:35 10:54 WBC 1.1 L* RBC 3.16 L Hgb 9.6 L Hct 28.8 L RDW 21.2 H Plt Count Seg Neuts % (Manual) 27.0 L Lymphocytes % (Manual) Monocytes % (Manual) 9.0 H Eosinophils % (Manual) 18.0 H Basophils % (Manual) 12.0 H Nucleated RBC % Seg Neutrophils # Man 0.3 L Abs Lymphs (Manual) Lymphocytes # (Manual) 0.3 L Basophils # (Manual) PT 16.0 H INR 1.20 H APTT Heparin Anti-Xa Level POC ABG pH POC ABG pCO2 POC ABG pO2 Sodium Potassium 5.5 H Chloride Carbon Dioxide 20 L BUN 83 H Creatinine 5.5 H Glucose 119 H POC Glucose Lactic Acid Calcium Phosphorus Magnesium Iron TIBC Ferritin AST ALT Total Creatine Kinase Total Protein Albumin Vitamin B12 Folate TSH Free T4 Urine WBC (Auto) Urine Creatinine Urine Chloride Urine Total Protein CSF VDRL Lymph Enumerat CD4/CD8 Absolute CD3 Count % CD4 Cells Absolute CD4 Count % CD8 Cells Absolute CD19 Count T.pallidum Ab (FTA-ABS) HIV-1 RNA PCR copies/ml HIV-1 RNA (PCR) log Miscellaneous Test 10/10/18 10/10/18 10/11/18 Unknown Unknown 05:20 WBC 1.2 L* RBC 2.89 L Hgb 8.7 L Hct 26.0 L RDW 20.1 H Plt Count Seg Neuts % (Manual) Lymphocytes % (Manual) 8.0 L Monocytes % (Manual) 12.0 H Eosinophils % (Manual) 24.0 H Basophils % (Manual) 4.0 H Nucleated RBC % Seg Neutrophils # Man 0.6 L Abs Lymphs (Manual) Lymphocytes # (Manual) 0.1 L Basophils # (Manual) PT INR APTT Heparin Anti-Xa Level POC ABG pH POC ABG pCO2 POC ABG pO2 Sodium Potassium Chloride Carbon Dioxide BUN Creatinine Glucose POC Glucose Lactic Acid Calcium Phosphorus Magnesium Iron TIBC Ferritin AST ALT Total Creatine Kinase Total Protein Albumin Vitamin B12 Folate TSH Free T4 Urine WBC (Auto) Urine Creatinine Urine Chloride Urine Total Protein CSF VDRL Reactive 1:2 H Lymph Enumerat CD4/CD8 Absolute CD3 Count % CD4 Cells Absolute CD4 Count % CD8 Cells Absolute CD19 Count T.pallidum Ab (FTA-ABS) HIV-1 RNA PCR copies/ml HIV-1 RNA (PCR) log Miscellaneous Test Flexitest 1 H 10/11/18 10/11/18 10/11/18 05:20 05:40 05:40 WBC RBC Hgb Hct RDW Plt Count Seg Neuts % (Manual) Lymphocytes % (Manual) Monocytes % (Manual) Eosinophils % (Manual) Basophils % (Manual) Nucleated RBC % Seg Neutrophils # Man Abs Lymphs (Manual) Lymphocytes # (Manual) Basophils # (Manual) PT INR APTT Heparin Anti-Xa Level POC ABG pH POC ABG pCO2 POC ABG pO2 Sodium Potassium Chloride Carbon Dioxide 20 L BUN 102 H Creatinine 6.7 H Glucose POC Glucose Lactic Acid Calcium 8.3 L Phosphorus Magnesium Iron TIBC Ferritin AST ALT Total Creatine Kinase Total Protein Albumin Vitamin B12 Folate TSH Free T4 Urine WBC (Auto) 8.0 H Urine Creatinine 57.5 H Urine Chloride 35.1 L Urine Total Protein 44 H CSF VDRL Lymph Enumerat CD4/CD8 Absolute CD3 Count % CD4 Cells Absolute CD4 Count % CD8 Cells Absolute CD19 Count T.pallidum Ab (FTA-ABS) HIV-1 RNA PCR copies/ml HIV-1 RNA (PCR) log Miscellaneous Test 10/11/18 10/12/18 10/12/18 16:41 03:30 03:30 WBC 0.9 L* RBC 2.78 L Hgb 8.3 L Hct 25.1 L RDW 19.9 H Plt Count Seg Neuts % (Manual) Lymphocytes % (Manual) Monocytes % (Manual) Eosinophils % (Manual) 20.0 H Basophils % (Manual) Nucleated RBC % Seg Neutrophils # Man 0.5 L Abs Lymphs (Manual) Lymphocytes # (Manual) 0.3 L Basophils # (Manual) PT INR APTT Heparin Anti-Xa Level POC ABG pH 7.318 L POC ABG pCO2 POC ABG pO2 Sodium Potassium Chloride Carbon Dioxide 18 L BUN 111 H Creatinine 7.3 H Glucose POC Glucose Lactic Acid Calcium 7.9 L Phosphorus Magnesium Iron TIBC Ferritin AST ALT Total Creatine Kinase Total Protein Albumin Vitamin B12 Folate TSH Free T4 Urine WBC (Auto) Urine Creatinine Urine Chloride Urine Total Protein CSF VDRL Lymph Enumerat CD4/CD8 Absolute CD3 Count % CD4 Cells Absolute CD4 Count % CD8 Cells Absolute CD19 Count T.pallidum Ab (FTA-ABS) HIV-1 RNA PCR copies/ml HIV-1 RNA (PCR) log Miscellaneous Test 10/12/18 10/13/18 10/13/18 13:30 04:00 04:05 WBC 1.0 L* RBC 2.68 L Hgb 8.1 L Hct 24.3 L RDW 19.7 H Plt Count Seg Neuts % (Manual) 36.7 L Lymphocytes % (Manual) Monocytes % (Manual) Eosinophils % (Manual) 16.7 H Basophils % (Manual) 16.7 H Nucleated RBC % Seg Neutrophils # Man 0.4 L Abs Lymphs (Manual) Lymphocytes # (Manual) 0.2 L Basophils # (Manual) 0.2 H PT INR APTT Heparin Anti-Xa Level POC ABG pH 7.336 L POC ABG pCO2 31.5 L POC ABG pO2 122 H Sodium Potassium Chloride Carbon Dioxide 17 L BUN 118 H Creatinine 7.8 H Glucose 102 H POC Glucose Lactic Acid Calcium 7.8 L Phosphorus Magnesium Iron TIBC Ferritin AST ALT Total Creatine Kinase Total Protein Albumin Vitamin B12 Folate TSH Free T4 Urine WBC (Auto) Urine Creatinine Urine Chloride Urine Total Protein CSF VDRL Lymph Enumerat CD4/CD8 Absolute CD3 Count % CD4 Cells Absolute CD4 Count % CD8 Cells Absolute CD19 Count T.pallidum Ab (FTA-ABS) HIV-1 RNA PCR copies/ml HIV-1 RNA (PCR) log Miscellaneous Test 10/13/18 10/14/18 10/14/18 18:44 00:01 05:20 WBC RBC Hgb Hct RDW Plt Count Seg Neuts % (Manual) Lymphocytes % (Manual) Monocytes % (Manual) Eosinophils % (Manual) Basophils % (Manual) Nucleated RBC % Seg Neutrophils # Man Abs Lymphs (Manual) Lymphocytes # (Manual) Basophils # (Manual) PT INR APTT Heparin Anti-Xa Level POC ABG pH POC ABG pCO2 POC ABG pO2 Sodium Potassium Chloride Carbon Dioxide BUN Creatinine Glucose POC Glucose 141 H 134 H 171 H Lactic Acid Calcium Phosphorus Magnesium Iron TIBC Ferritin AST ALT Total Creatine Kinase Total Protein Albumin Vitamin B12 Folate TSH Free T4 Urine WBC (Auto) Urine Creatinine Urine Chloride Urine Total Protein CSF VDRL Lymph Enumerat CD4/CD8 Absolute CD3 Count % CD4 Cells Absolute CD4 Count % CD8 Cells Absolute CD19 Count T.pallidum Ab (FTA-ABS) HIV-1 RNA PCR copies/ml HIV-1 RNA (PCR) log Miscellaneous Test 10/14/18 10/14/18 10/14/18 09:39 09:40 11:37 WBC RBC Hgb Hct RDW Plt Count Seg Neuts % (Manual) Lymphocytes % (Manual) Monocytes % (Manual) Eosinophils % (Manual) Basophils % (Manual) Nucleated RBC % Seg Neutrophils # Man Abs Lymphs (Manual) Lymphocytes # (Manual) Basophils # (Manual) PT INR APTT Heparin Anti-Xa Level POC ABG pH POC ABG pCO2 POC ABG pO2 Sodium 147 H Potassium 3.4 L Chloride 108.1 H Carbon Dioxide 16 L BUN 124 H Creatinine 6.7 H Glucose 144 H POC Glucose 164 H Lactic Acid Calcium 7.8 L Phosphorus 8.50 H Magnesium Iron TIBC Ferritin AST ALT Total Creatine Kinase Total Protein Albumin Vitamin B12 Folate TSH Free T4 Urine WBC (Auto) Urine Creatinine Urine Chloride Urine Total Protein CSF VDRL Lymph Enumerat CD4/CD8 Absolute CD3 Count % CD4 Cells Absolute CD4 Count % CD8 Cells Absolute CD19 Count T.pallidum Ab (FTA-ABS) HIV-1 RNA PCR copies/ml HIV-1 RNA (PCR) log Miscellaneous Test 10/14/18 10/14/18 10/15/18 Unknown Unknown 00:05 WBC 0.5 L* RBC 2.80 L Hgb 8.2 L Hct 25.2 L RDW 19.7 H Plt Count Seg Neuts % (Manual) Lymphocytes % (Manual) 10.0 L Monocytes % (Manual) Eosinophils % (Manual) 10.0 H Basophils % (Manual) Nucleated RBC % Seg Neutrophils # Man 0.4 L Abs Lymphs (Manual) Lymphocytes # (Manual) 0.1 L Basophils # (Manual) PT INR APTT Heparin Anti-Xa Level POC ABG pH POC ABG pCO2 POC ABG pO2 Sodium Potassium Chloride Carbon Dioxide 13 L BUN 126 H Creatinine 7.7 H Glucose 153 H POC Glucose 190 H Lactic Acid Calcium 7.8 L Phosphorus Magnesium Iron TIBC Ferritin AST ALT Total Creatine Kinase Total Protein Albumin Vitamin B12 Folate TSH Free T4 Urine WBC (Auto) Urine Creatinine Urine Chloride Urine Total Protein CSF VDRL Lymph Enumerat CD4/CD8 Absolute CD3 Count % CD4 Cells Absolute CD4 Count % CD8 Cells Absolute CD19 Count T.pallidum Ab (FTA-ABS) HIV-1 RNA PCR copies/ml HIV-1 RNA (PCR) log Miscellaneous Test 10/15/18 10/15/18 10/15/18 04:15 04:15 05:03 WBC 0.8 L* RBC 2.73 L Hgb 8.2 L Hct 24.4 L RDW 18.8 H Plt Count Seg Neuts % (Manual) Lymphocytes % (Manual) Monocytes % (Manual) Eosinophils % (Manual) Basophils % (Manual) Nucleated RBC % Seg Neutrophils # Man Abs Lymphs (Manual) Lymphocytes # (Manual) Basophils # (Manual) PT INR APTT Heparin Anti-Xa Level POC ABG pH POC ABG pCO2 POC ABG pO2 Sodium 148 H Potassium 2.9 L* Chloride 108.5 H Carbon Dioxide 17 L BUN 127 H Creatinine 6.1 H Glucose 154 H POC Glucose 170 H Lactic Acid Calcium 7.7 L Phosphorus Magnesium Iron TIBC Ferritin AST ALT Total Creatine Kinase Total Protein 6.0 L Albumin 2.3 L Vitamin B12 Folate TSH Free T4 Urine WBC (Auto) Urine Creatinine Urine Chloride Urine Total Protein CSF VDRL Lymph Enumerat CD4/CD8 Absolute CD3 Count % CD4 Cells Absolute CD4 Count % CD8 Cells Absolute CD19 Count T.pallidum Ab (FTA-ABS) HIV-1 RNA PCR copies/ml HIV-1 RNA (PCR) log Miscellaneous Test 10/15/18 10/15/18 10/15/18 12:23 17:42 17:49 WBC RBC Hgb Hct RDW Plt Count Seg Neuts % (Manual) Lymphocytes % (Manual) Monocytes % (Manual) Eosinophils % (Manual) Basophils % (Manual) Nucleated RBC % Seg Neutrophils # Man Abs Lymphs (Manual) Lymphocytes # (Manual) Basophils # (Manual) PT INR APTT Heparin Anti-Xa Level POC ABG pH POC ABG pCO2 POC ABG pO2 Sodium 146 H Potassium 3.0 L Chloride 109.4 H Carbon Dioxide 16 L BUN 124 H Creatinine 5.6 H Glucose 162 H POC Glucose 180 H 173 H Lactic Acid Calcium 7.5 L Phosphorus Magnesium Iron TIBC Ferritin AST ALT Total Creatine Kinase Total Protein Albumin Vitamin B12 Folate TSH Free T4 Urine WBC (Auto) Urine Creatinine Urine Chloride Urine Total Protein CSF VDRL Lymph Enumerat CD4/CD8 Absolute CD3 Count % CD4 Cells Absolute CD4 Count % CD8 Cells Absolute CD19 Count T.pallidum Ab (FTA-ABS) HIV-1 RNA PCR copies/ml HIV-1 RNA (PCR) log Miscellaneous Test 10/15/18 10/16/18 10/16/18 23:56 05:37 07:50 WBC 1.1 L* RBC 2.70 L Hgb 8.0 L Hct 24.4 L RDW 18.9 H Plt Count Seg Neuts % (Manual) Lymphocytes % (Manual) Monocytes % (Manual) 8.0 H Eosinophils % (Manual) Basophils % (Manual) Nucleated RBC % Seg Neutrophils # Man 0.7 L Abs Lymphs (Manual) Lymphocytes # (Manual) 0.2 L Basophils # (Manual) PT INR APTT Heparin Anti-Xa Level POC ABG pH POC ABG pCO2 POC ABG pO2 Sodium Potassium Chloride Carbon Dioxide BUN Creatinine Glucose POC Glucose 164 H 152 H Lactic Acid Calcium Phosphorus Magnesium Iron TIBC Ferritin AST ALT Total Creatine Kinase Total Protein Albumin Vitamin B12 Folate TSH Free T4 Urine WBC (Auto) Urine Creatinine Urine Chloride Urine Total Protein CSF VDRL Lymph Enumerat CD4/CD8 Absolute CD3 Count % CD4 Cells Absolute CD4 Count % CD8 Cells Absolute CD19 Count T.pallidum Ab (FTA-ABS) HIV-1 RNA PCR copies/ml HIV-1 RNA (PCR) log Miscellaneous Test 10/16/18 10/16/18 10/16/18 07:50 12:35 18:00 WBC RBC Hgb Hct RDW Plt Count Seg Neuts % (Manual) Lymphocytes % (Manual) Monocytes % (Manual) Eosinophils % (Manual) Basophils % (Manual) Nucleated RBC % Seg Neutrophils # Man Abs Lymphs (Manual) Lymphocytes # (Manual) Basophils # (Manual) PT INR APTT Heparin Anti-Xa Level POC ABG pH POC ABG pCO2 POC ABG pO2 Sodium 147 H Potassium 3.0 L Chloride Carbon Dioxide 15 L BUN 143 H Creatinine 6.2 H Glucose 182 H POC Glucose 122 H 160 H Lactic Acid Calcium 8.1 L Phosphorus Magnesium Iron TIBC Ferritin AST ALT Total Creatine Kinase Total Protein Albumin Vitamin B12 Folate TSH Free T4 Urine WBC (Auto) Urine Creatinine Urine Chloride Urine Total Protein CSF VDRL Lymph Enumerat CD4/CD8 Absolute CD3 Count % CD4 Cells Absolute CD4 Count % CD8 Cells Absolute CD19 Count T.pallidum Ab (FTA-ABS) HIV-1 RNA PCR copies/ml HIV-1 RNA (PCR) log Miscellaneous Test 10/16/18 10/17/18 10/17/18 23:32 05:03 11:32 WBC RBC Hgb Hct RDW Plt Count Seg Neuts % (Manual) Lymphocytes % (Manual) Monocytes % (Manual) Eosinophils % (Manual) Basophils % (Manual) Nucleated RBC % Seg Neutrophils # Man Abs Lymphs (Manual) Lymphocytes # (Manual) Basophils # (Manual) PT INR APTT Heparin Anti-Xa Level POC ABG pH POC ABG pCO2 POC ABG pO2 Sodium Potassium Chloride Carbon Dioxide BUN Creatinine Glucose POC Glucose 131 H 112 H 149 H Lactic Acid Calcium Phosphorus Magnesium Iron TIBC Ferritin AST ALT Total Creatine Kinase Total Protein Albumin Vitamin B12 Folate TSH Free T4 Urine WBC (Auto) Urine Creatinine Urine Chloride Urine Total Protein CSF VDRL Lymph Enumerat CD4/CD8 Absolute CD3 Count % CD4 Cells Absolute CD4 Count % CD8 Cells Absolute CD19 Count T.pallidum Ab (FTA-ABS) HIV-1 RNA PCR copies/ml HIV-1 RNA (PCR) log Miscellaneous Test 10/19/18 10/19/18 10/19/18 04:00 06:15 14:54 WBC 0.7 L* 0.7 L* RBC 2.77 L 2.77 L Hgb 7.9 L 8.3 L Hct 24.7 L 24.6 L RDW 19.4 H 19.2 H Plt Count 112 L 105 L Seg Neuts % (Manual) Lymphocytes % (Manual) Monocytes % (Manual) 17.0 H 16.0 H Eosinophils % (Manual) 6.0 H Basophils % (Manual) 2.0 H Nucleated RBC % Seg Neutrophils # Man 0.3 L 0.3 L Abs Lymphs (Manual) Lymphocytes # (Manual) 0.2 L 0.2 L Basophils # (Manual) PT INR APTT Heparin Anti-Xa Level POC ABG pH POC ABG pCO2 POC ABG pO2 Sodium Potassium 2.9 L* Chloride Carbon Dioxide 19 L BUN 107 H Creatinine 5.9 H Glucose POC Glucose Lactic Acid Calcium 7.9 L Phosphorus Magnesium Iron TIBC Ferritin AST 54 H ALT Total Creatine Kinase Total Protein 5.7 L Albumin 2.5 L Vitamin B12 Folate TSH Free T4 Urine WBC (Auto) Urine Creatinine Urine Chloride Urine Total Protein CSF VDRL Lymph Enumerat CD4/CD8 Absolute CD3 Count % CD4 Cells Absolute CD4 Count % CD8 Cells Absolute CD19 Count T.pallidum Ab (FTA-ABS) HIV-1 RNA PCR copies/ml HIV-1 RNA (PCR) log Miscellaneous Test 10/20/18 10/20/18 10/21/18 05:34 12:17 06:00 WBC RBC Hgb Hct RDW Plt Count Seg Neuts % (Manual) Lymphocytes % (Manual) Monocytes % (Manual) Eosinophils % (Manual) Basophils % (Manual) Nucleated RBC % Seg Neutrophils # Man Abs Lymphs (Manual) Lymphocytes # (Manual) Basophils # (Manual) PT INR APTT Heparin Anti-Xa Level POC ABG pH POC ABG pCO2 33.3 L POC ABG pO2 107 H Sodium Potassium 3.0 L Chloride Carbon Dioxide 20 L BUN 94 H Creatinine 6.1 H Glucose POC Glucose 113 H Lactic Acid Calcium 7.9 L Phosphorus Magnesium Iron TIBC Ferritin AST ALT Total Creatine Kinase Total Protein Albumin Vitamin B12 Folate TSH Free T4 Urine WBC (Auto) Urine Creatinine Urine Chloride Urine Total Protein CSF VDRL Lymph Enumerat CD4/CD8 Absolute CD3 Count % CD4 Cells Absolute CD4 Count % CD8 Cells Absolute CD19 Count T.pallidum Ab (FTA-ABS) HIV-1 RNA PCR copies/ml HIV-1 RNA (PCR) log Miscellaneous Test Allied health notes reviewed: nursing
[2018-10-23] MEDS: PROVENTIL IH SCH ×4 (01:41→19:51)
[2018-10-23] MEDS: SYNTHROID PO SCH (06:55)
[2018-10-23] MEDS: ROBINUL PO SCH ×3 (06:55→17:58)
[2018-10-23] MEDS: PEPCID PO SCH (09:05)
[2018-10-23] MEDS: LOPRESSOR PO SCH ×2 (09:06→21:30)
[2018-10-23] MEDS: FOLVITE PO SCH (09:08)
[2018-10-23] MEDS: KEPPRA PO SCH ×2 (09:08→21:31)
[2018-10-23] MEDS: PREZISTA PO SCH (09:09)
[2018-10-23] MEDS: TIVICAY PO SCH (09:10)
[2018-10-23] MEDS: NORVIR PO SCH (09:10)
[2018-10-23] MEDS: MEPRON PO SCH ×2 (09:11→21:31)
[2018-10-23] MEDS: DIFLUCAN PO SCH (09:11)
[2018-10-23] MEDS: SODIUM CHLORIDE FLUSH SYRINGE 10 ML IV SCH ×2 (09:13→21:31)
[2018-10-23] MEDS: CORDARONE PO SCH (10:48)
--- NOTE | 2018-10-23 11:44 | Progress Note ---
Assessment and Plan Assessment and plan: ARF - Patient's creatinine level is trending up - nephrology is following and he started on hemodialysis 10/16/18. Acute hypoxemic respiratory failure - Patient has pneumonia and altered mental status - Patient is intubated and on mechanical ventilation - Trach and PEG per surgery on Wednesday. Disseminated CMV viremia: -Treated with IV ganciclovir and currently he is on prophylaxis Toxic metabolic encephalopathy. 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 Of note, MRI did not show ventriculitis. A. fib with RVR. Converted to NSR. cont Amiodarone and metoprolol. Amiodarone decreased to 200 mg per cardiology Rate controlled Neurosyphilis: CSF VDRL positive, patient finished a course of IV penicillin 21 days Diarrhea. Resolved, etiology likely secondary to Giardia. Giardia antigen positive in stool. Completed a course of Flagyl. Oral candidiasis. Fluconazole HIV/AIDS. New Diagnosis. Continue on HAART per ID continue atovaquone and azithromycin prophylaxis Neutropenia. 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 Additional dose of Neupogen per hematology. NGT associated sinusitis/mastoiditis. Patient fully treated. Continue OGT Prognosis poor. The high probability of a clinically significant, sudden or life threatening deterioration of the [neurological, respiratory and cardiac] system(s) required my full and direct attention, intervention and personal management. The aggregate critical care time was [32] minutes. This time is in addition to time spent performing reported procedures but includes the following: [x] Data Review and interpretation [x] Patient assessment and monitoring of vital signs [x] Documentation [x] Medication orders and management History Interval history: Patient is 33 yo initially presented with diarrhea, found to have pneumonia, sepsis, HIV/AIDS(new diagnosis) with CD4 count of 4. He was started on abx for PJP. His mental status has worsened with confusion, lethargy. LP done . He was diagnosed with neurosyphilis. Started on Penicillin. Closest family is sister in [place], and dr. Baltazar spoke to her several times about diagnosis but did not tell her about HIV/AIDS because of patient confidentiality. The patient decompensated on 09/20/18 with acute hypoxemic respiratory failure and worsening toxic metabolic encephalopathy requiring transfer to ICU and intubation. He now remains on mechanical ventilation. The patient was also noted to develop SVT requiring amiodarone drip as well as heparin drip. Severe Sepsis. Etiology secondary to bacterial pneumonia +/- gastroenteritis with newly diagnosed with HIV. Fevers have re-emerged. Repeat blood cx per ID. the patient was initiated on hemodialysis 10/16/18 for renal failure secondary to ATN from severe sepsis. Hospitalist Physical - Constitutional Vitals: Temp Pulse Resp BP Pulse Ox 98.6 F 90 14 145/75 100 10/23/18 09:00 10/23/18 10:00 10/23/18 10:00 10/23/18 10:00 10/23/18 10:00 General appearance: Present: mild distress, other (orally intubated, minimal response--right side spontaneous movement) - EENT Eyes: Present: PERRL, EOM intact ENT: hearing intact, clear oral mucosa, dentition normal - Neck Neck: Present: supple, normal ROM - Respiratory Respiratory effort: normal Respiratory: bilateral: CTA - Cardiovascular Rhythm: regular Heart Sounds: Present: S1 & S2. Absent: gallop, rub - Extremities Extremities: no ischemia, No edema, Full ROM - Abdominal General gastrointestinal: soft, non-tender, non-distended, normal bowel sounds - Integumentary Integumentary: Present: clear, warm, dry - Neurologic Neurologic: CNII-XII intact, moves all extremities Results - Labs CBC & Chem 7: 10/19/18 14:54 10/21/18 06:00 Labs: Laboratory Last Values WBC 0.7 K/mm3 (4.5-11.0) L* 10/19/18 14:54 RBC 2.77 M/mm3 (3.65-5.03) L 10/19/18 14:54 Hgb 8.3 gm/dl (11.8-15.2) L 10/19/18 14:54 Hct 24.6 % (35.5-45.6) L 10/19/18 14:54 MCV 89 fl (84-94) 10/19/18 14:54 MCH 30 pg (28-32) 10/19/18 14:54 MCHC 34 % (32-34) 10/19/18 14:54 RDW 19.2 % (13.2-15.2) H 10/19/18 14:54 Plt Count 105 K/mm3 (140-440) L 10/19/18 14:54 Stephens % (Auto) [employer] 09/29/18 05:00 Eos % (Auto) [employer] 10/13/18 04:05 Baso % (Auto) [employer] 10/13/18 04:05 Add Manual Diff Complete 10/19/18 14:54 Total Counted 50 10/19/18 14:54 Seg Neutrophils % Super[employer] 10/16/18 07:50 Seg Neuts % (Manual) 46.0 % (40.0-70.0) 10/19/18 14:54 Band Neutrophils % 2.0 % 10/19/18 14:54 Lymphocytes % (Manual) 32.0 % (13.4-35.0) 10/19/18 14:54 Reactive Lymphs % (Man) 0 % 10/19/18 14:54 Monocytes % (Manual) 16.0 % (0.0-7.3) H 10/19/18 14:54 Eosinophils % (Manual) 2.0 % (0.0-4.3) 10/19/18 14:54 Basophils % (Manual) 2.0 % (0.0-1.8) H 10/19/18 14:54 Metamyelocytes % 0 % 10/19/18 14:54 Myelocytes % 0 % 10/19/18 14:54 Promyelocytes % 0 % 10/19/18 14:54 Blast Cells % 0 % 10/19/18 14:54 Nucleated RBC % Not Reportable 10/19/18 14:54 Seg Neutrophils # Man 0.3 K/mm3 (1.8-7.7) L 10/19/18 14:54 Band Neutrophils # 0.0 K/mm3 10/19/18 14:54 Abs Lymphs (Manual) 309 cells/uL (850-3900) L 09/13/18 12:29 Lymphocytes # (Manual) 0.2 K/mm3 (1.2-5.4) L 10/19/18 14:54 Abs React Lymphs (Man) 0.0 K/mm3 10/19/18 14:54 Monocytes # (Manual) 0.1 K/mm3 (0.0-0.8) 10/19/18 14:54 Eosinophils # (Manual) 0.0 K/mm3 (0.0-0.4) 10/19/18 14:54 Basophils # (Manual) 0.0 K/mm3 (0.0-0.1) 10/19/18 14:54 Metamyelocytes # 0.0 K/mm3 10/19/18 14:54 Myelocytes # 0.0 K/mm3 10/19/18 14:54 Promyelocytes # 0.0 K/mm3 10/19/18 14:54 Blast Cells # 0.0 K/mm3 10/19/18 14:54 WBC Morphology Not Reportable 10/19/18 14:54 Hypersegmented Neuts Not Reportable 10/19/18 14:54 Hyposegmented Neuts Not Reportable 10/19/18 14:54 Hypogranular Neuts Not Reportable 10/19/18 14:54 Smudge Cells Not Reportable 10/19/18 14:54 Toxic Granulation Not Reportable 10/19/18 14:54 Toxic Vacuolation Not Reportable 10/19/18 14:54 Dohle Bodies Not Reportable 10/19/18 14:54 Pelger-Huet Anomaly Not Reportable 10/19/18 14:54 Giovanna Rods Not Reportable 10/19/18 14:54 Platelet Estimate Consistent w auto 10/19/18 14:54 Clumped Platelets Not Reportable 10/19/18 14:54 Plt Clumps, EDTA Not Reportable 10/19/18 14:54 Large Platelets Not Reportable 10/19/18 14:54 Giant Platelets Not Reportable 10/19/18 14:54 Platelet Satelliting Not Reportable 10/19/18 14:54 Plt Morphology Comment Not Reportable 10/19/18 14:54 RBC Morphology Not Reportable 10/19/18 14:54 Dimorphic RBCs Not Reportable 10/19/18 14:54 Polychromasia Not Reportable 10/19/18 14:54 Hypochromasia Not Reportable 10/19/18 14:54 Poikilocytosis Not Reportable 10/19/18 14:54 Anisocytosis 1+ 10/19/18 14:54 Microcytosis Not Reportable 10/19/18 14:54 Macrocytosis Not Reportable 10/19/18 14:54 Spherocytes Not Reportable 10/19/18 14:54 Pappenheimer Bodies Not Reportable 10/19/18 14:54 Sickle Cells Not Reportable 10/19/18 14:54 Target Cells Not Reportable 10/19/18 14:54 Tear Drop Cells Not Reportable 10/19/18 14:54 Ovalocytes Not Reportable 10/19/18 14:54 Stomatocytes 1+ 09/29/18 05:00 Helmet Cells Not Reportable 10/19/18 14:54 [place] Bodies Not Reportable 10/19/18 14:54 [place] Rings Not Reportable 10/19/18 14:54 [place] Cells Not Reportable 10/19/18 14:54 Bite Cells Not Reportable 10/19/18 14:54 Crenated Cell Not Reportable 10/19/18 14:54 Elliptocytes Not Reportable 10/19/18 14:54 Acanthocytes (Spur) Not Reportable 10/19/18 14:54 Rouleaux Not Reportable 10/19/18 14:54 Hemoglobin C Crystals Not Reportable 10/19/18 14:54 Schistocytes Not Reportable 10/19/18 14:54 Malaria parasites Not Reportable 10/19/18 14:54 Kieran Bodies Not Reportable 10/19/18 14:54 Hem Pathologist Commnt No 10/19/18 14:54 PT 16.0 Sec. (12.2-14.9) H 10/10/18 08:09 INR 1.20 (0.87-1.13) H 10/10/18 08:09 APTT 40.9 Sec. (24.2-36.6) H 09/21/18 15:00 Heparin Anti-Xa Level 0.35 U.I./ml (0.3-0.7) 10/05/18 10:19 POC ABG pH 7.399 (7.35-7.45) 10/20/18 12:17 POC ABG pCO2 33.3 (35-45) L 10/20/18 12:17 POC ABG pO2 107 (80-105) H 10/20/18 12:17 POC ABG HCO3 20.6 10/20/18 12:17 POC ABG Total CO2 22 10/20/18 12:17 POC ABG O2 Sat 98 10/20/18 12:17 POC ABG Base Excess -4 10/20/18 12:17 FiO2 25 % 10/20/18 12:17 Sodium 143 mmol/L (137-145) 10/21/18 06:00 Potassium 3.0 mmol/L (3.6-5.0) L 10/21/18 06:00 Chloride 100.2 mmol/L (98-107) 10/21/18 06:00 Carbon Dioxide 20 mmol/L (22-30) L 10/21/18 06:00 Anion Gap 26 mmol/L 10/21/18 06:00 BUN 94 mg/dL (9-20) H 10/21/18 06:00 Creatinine 6.1 mg/dL (0.8-1.5) H 10/21/18 06:00 Estimated GFR 13 ml/min 10/21/18 06:00 BUN/Creatinine Ratio 15 % 10/21/18 06:00 Glucose 85 mg/dL (75-100) 10/21/18 06:00 POC Glucose 101 (70-105) 10/22/18 12:01 Lactic Acid 0.90 mmol/L (0.7-2.0) 09/11/18 20:17 Calcium 7.9 mg/dL (8.4-10.2) L 10/21/18 06:00 Phosphorus 8.50 mg/dL (2.5-4.5) H 10/14/18 09:40 Magnesium 2.10 mg/dL (1.7-2.3) 10/14/18 09:40 Iron 35 ug/dL (49-181) L 10/06/18 09:40 TIBC 157 mcg/dL (250-450) L 10/06/18 09:40 Ferritin 1126.0 ng/mL (13.0-400.0) H 10/06/18 09:40 Total Bilirubin 0.30 mg/dL (0.1-1.2) 10/19/18 06:15 Direct Bilirubin < 0.2 mg/dL (0-0.2) 09/13/18 07:31 AST 54 units/L (5-40) H 10/19/18 06:15 ALT 36 units/L (7-56) 10/19/18 06:15 Alkaline Phosphatase 57 units/L (35-129) 10/19/18 06:15 Ammonia 27.0 umol/L (25-60) 10/03/18 13:23 Total Creatine Kinase 113 units/L (55-170) 10/11/18 05:20 CK-MB (CK-2) 2.6 ng/mL (0.0-4.0) 10/11/18 05:20 CK-MB (CK-2) Rel Index 0.5 (0-4) 09/21/18 04:25 NT-Pro-B Natriuret Pep 145.9 pg/mL (0-450) 09/18/18 16:07 Total Protein 5.7 g/dL (6.3-8.2) L 10/19/18 06:15 Albumin 2.5 g/dL (3.9-5) L 10/19/18 06:15 Albumin/Globulin Ratio 0.8 % 10/19/18 06:15 Vitamin B12 934.5 pg/mL (211-911) H 09/16/18 11:41 Folate 6.71 ng/mL (7.3-26.0) L 10/06/18 09:40 TSH 5.190 mlU/mL (0.270-4.200) H 09/18/18 12:46 Free T4 0.75 ng/dL (0.76-1.46) L 09/18/18 12:46 Urine Color Yellow (Yellow) 10/11/18 05:40 Urine Turbidity Slightly-cloudy (Clear) 10/11/18 05:40 Urine pH 5.0 (5.0-7.0) 10/11/18 05:40 Ur Specific [place] 1.012 (1.003-1.030) 10/11/18 05:40 Urine Protein 30 mg/dl mg/dL (Negative) 10/11/18 05:40 Urine Glucose (UA) Neg mg/dL (Negative) 10/11/18 05:40 Urine Ketones Neg mg/dL (Negative) 10/11/18 05:40 Urine Blood Mod (Negative) 10/11/18 05:40 Urine Nitrite Neg (Negative) 10/11/18 05:40 Urine Bilirubin Neg (Negative) 10/11/18 05:40 Urine Urobilinogen < 2.0 mg/dL (<2.0) 10/11/18 05:40 Ur Leukocyte Esterase Neg (Negative) 10/11/18 05:40 Urine WBC (Auto) 8.0 /HPF (0.0-6.0) H 10/11/18 05:40 Urine RBC (Auto) 45.0 /HPF (0.0-6.0) 10/11/18 05:40 U Epithel Cells (Auto) 2.0 /HPF (0-13.0) 10/11/18 05:40 Urine Bacteria (Auto) 1+ /HPF (Negative) 10/11/18 05:40 Urine Mucus Few /HPF 10/11/18 05:40 Urine Creatinine 57.5 mg/dL (0.1-20.0) H 10/11/18 05:40 Protein/Creatinin Ratio 0.77 10/11/18 05:40 Urine Sodium 70 mmol/L 10/11/18 05:40 Urine Chloride 35.1 mmolL (110-250) L 10/11/18 05:40 Urine Total Protein 44 mg/dL (5-11.8) H 10/11/18 05:40 CSF Appearance Bloody 10/10/18 Unknown CSF Color Red 10/10/18 Unknown CSF WBC 10 /mm3 (1-10) 10/10/18 Unknown CSF RBC 95237 /mm3 (0-0) 10/10/18 Unknown CSF Seg Neutrophils 14.0 % (0-6) 10/10/18 Unknown CSF Lymphocytes % 44.0 % (40-80) 10/10/18 Unknown CSF Reactive Lymphs 0 % 10/10/18 Unknown CSF Monocytes % 38.0 % (15-45) 10/10/18 Unknown CSF Eosinophils % 4.0 % 10/10/18 Unknown CSF Basophils 0 % 10/10/18 Unknown CSF Pathologist Review C 10/10/18 Unknown CSF Glucose 47 mg/dL 10/10/18 Unknown CSF Total Protein 84 mg/dL 10/10/18 Unknown CSF VDRL Reactive 1:2 (Nonreactive) H 10/10/18 Unknown Vancomycin Trough 14.3 ug/mL (5.0-20.0) 09/25/18 14:45 Random Vancomycin 10.7 ug/mL (0-40.0) 10/12/18 03:30 Urine Opiates Screen Presumptive negative 09/17/18 15:52 Urine Methadone Screen Presumptive negative 09/17/18 15:52 Ur Barbiturates Screen Presumptive negative 09/17/18 15:52 Ur Phencyclidine Scrn Presumptive negative 09/17/18 15:52 Ur Amphetamines Screen Presumptive negative 09/17/18 15:52 U Benzodiazepines Scrn Presumptive negative 09/17/18 15:52 Urine Cocaine Screen Presumptive negative 09/17/18 15:52 U Marijuana (THC) Screen Presumptive negative 09/17/18 15:52 Drugs of Abuse Note Disclamer 09/17/18 15:52 Proteinase 3 (PR3) Ab <1.0 AI (<1.0) 10/12/18 09:46 Myeloperoxidase Ab <1.0 AI (<1.0) 10/12/18 09:46 Complement C3 184 mg/dL (82-185) 10/12/18 09:46 Complement C4 45 mg/dL (15-53) 10/12/18 09:46 Lymph Enumerat CD4/CD8 0.01 (0.86-5.00) L 09/13/18 12:29 % CD3 Cells 71 % (57-85) 09/13/18 12:29 Absolute CD3 Count 220 cells/uL (840-3060) L 09/13/18 12:29 % CD4 Cells 1 % (30-61) L 09/13/18 12:29 Absolute CD4 Count 4 cells/uL (490-1740) L 09/13/18 12:29 % CD8 Cells 70 % (12-42) H 09/13/18 12:29 Absolute CD8 Count 216 cells/uL (180-1170) 09/13/18 12:29 % CD19 Cells 17 % (6-29) 09/13/18 12:29 Absolute CD19 Count 54 cells/uL (110-660) L 09/13/18 12:29 RPR Titer 1:16 09/13/18 12:29 RPR Reactive (Nonreactive) 09/13/18 12:29 T.pallidum Ab (FTA-ABS) Reactive (Nonreactive) H 09/14/18 16:34 C. 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/mL See scanned results 10/03/18 06:12 Hepatitis A IgM Ab Non-reactive (NonReactive) 09/13/18 12:29 Hep Bs Antigen Non-reactive (Negative) 09/13/18 12:29 Hep B Core IgM Ab Non-reactive (NonReactive) 09/13/18 12:29 Hepatitis C Antibody Non-reactive (NonReactive) 09/13/18 12:29 HIV-1 Antibody See scanned result 09/11/18 19:14 HIV-1 RNA PCR copies/ml 72394 Copies/mL H 09/13/18 12:29 HIV-1 RNA (PCR) log 4.71 Log cps/mL H 09/13/18 12:29 HIV-2 Ab (Immunoblot) See scanned result 09/11/18 19:14 HIV 1&2 Antibody Rapid Reactive (Non React) 09/11/18 19:14 HIV P24 Antigen Non react (Non React) 09/11/18 19:14 Influenza A (Rapid) Negative (Negative) 09/13/18 16:05 Influenza A (RT-PCR) Negative (Negative) 09/13/18 16:05 Influenza B (Rapid) Negative (Negative) 09/13/18 16:05 Influenza B (RT-PCR) Negative (Negative) 09/13/18 16:05 Toxoplasma IgG Ab <7.20 IU/mL (<7.20) 09/16/18 12:09 Miscellaneous Test Flexitest 1 H 10/10/18 Unknown Nutrition/Malnutrition Assess - Dietary Evaluation Nutrition/Malnutrition Findings: Nutrition Notes Start: 09/12/18 17:45 Freq: Status: Active Protocol: Document 10/20/18 14:10 (Rec: 10/20/18 14:24 [email or web address]) Co-Sign 10/20/18 14:10 LP Nutrition Notes Initial or Follow up Reassessment Current Diagnosis Acute Kidney Injury,Sepsis, Respiratory Failure Other Pertinent Diagnosis On HD, HIV, bilat pneu, gastroenteritis, encephalopathy Current Diet Vital AF at 60 ml/hr Labs/Tests From 10/19: K: 2.9 BUN: 107 Cr: 5.9 Pertinent Medications Lopressor Height 6 ft Weight 120.8 kg [place] Body Weight (kg) 80.90 BMI 36.1 Subjective/Other Information Pt. f/u for stable TF, renal labs. Observed Vital AF running at 60 ml/hr. Per RN, pt still tolerating TF well. BUN and Cr are high but trending down. Percent of energy/protein needs met: 89%/89% Burn Absent Trauma Absent #2 Nutrition Diagnosis Inadequate oral intake Diagnosis Progress(for reassessment Continues documentation) #1 Nutrition Diagnosis Malnutrition Diagnosis Progress(for reassessment Continues documentation) Is patient on ventilator? Yes Is Patient Ambulatory and/or Out of Bed No REE-(Brooks-St. Jeor-confined to bed) 2630.916 Kcal/Kg value to use for calculation 16 Approximate Energy Requirements Using 1933 kcal/Kg Calculation Used for Recommendations Kcal/kg Additional Notes Pro needs: 162 g/day (2g/kg IBW) Fluid: 1 ml/kcal Nutrition Intervention Change Diet Order: Continue TF Nutrition Support: Vital AF 1.2 at 60ml/hr Flush with 100ml q4h Kcal 1,728 Protein (gm) 108 Fluid (mL) 1,203 Goal #1 Continue to meet at least 80% of energy and 65% of protein needs due to renal function. Anticipated Discharge Needs: Unable to determine at this time Follow-Up By: 10/24/18 Additional Comments F/u for stable TF, renal labs
--- NOTE | 2018-10-23 12:43 | Progress Note ---
Assessment and Plan - Patient Problems (1) Acute kidney failure with tubular necrosis Current Visit: Yes Status: Acute Plan to address problem: With worsening renal function, pateint was eventually initiated on HD. Currently on MWF inpatient HD schedule. No acute HD needs today. Labs noted without any signs of significant renal recovery. (2) Hypokalemia Current Visit: Yes Status: Acute Plan to address problem: Patient has now had been persistently hypokalemic We are using 4k bath on dialysate. Will continue to monitor. (3) Acute respiratory failure with hypoxia Current Visit: Yes Status: Acute Plan to address problem: Remains intubated. 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 Will continue to monitor. Remains lethargic this am. (5) Pancytopenia Current Visit: Yes Status: Acute Plan to address problem: In the setting of CMV viremia, HIV/AIDS. Will defer to primary team. (6) HIV (human immunodeficiency virus infection) Current Visit: Yes Status: Chronic Plan to address problem: Management per ID recommendations. (7) Hypernatremia Current Visit: Yes Status: Acute Plan to address problem: Hypernatremia has resolved at this time. Subjective Date of service: 10/23/18 Principal diagnosis: Severe sepsis; Ac hypoxemic Resp failure; [place]. Pneumonia; Ac encephalopathy Interval history: No acute events overnight. He does open eyes spontaneously. Not following commands. Overall mental status is stable, off sedation. Objective - Vital Signs Vital signs: Vital Signs - 12hr 10/23/18 10/23/18 10/23/18 00:00 00:26 01:00 Temperature 99.0 F Pulse Rate 83 83 87 Pulse Rate [ Bases] Pulse Rate [ 86 From Monitor] Pulse Rate [ Throughout] Respiratory 16 19 Rate Respiratory Rate [Bases] Respiratory Rate [ Throughout] Blood Pressure 116/67 112/70 119/80 O2 Sat by Pulse 94 100 95 Oximetry 10/23/18 10/23/18 10/23/18 01:42 03:00 03:08 Temperature Pulse Rate 86 Pulse Rate [ Bases] Pulse Rate [ From Monitor] Pulse Rate [ 88 87 Throughout] Respiratory 22 Rate Respiratory Rate [Bases] Respiratory 22 20 Rate [ Throughout] Blood Pressure 123/74 O2 Sat by Pulse 97 Oximetry 10/23/18 10/23/18 10/23/18 04:00 04:52 05:00 Temperature 98.3 F Pulse Rate 91 H 90 88 Pulse Rate [ Bases] Pulse Rate [ 92 H From Monitor] Pulse Rate [ Throughout] Respiratory 16 22 Rate Respiratory Rate [Bases] Respiratory Rate [ Throughout] Blood Pressure 146/80 137/85 137/83 O2 Sat by Pulse 98 100 98 Oximetry 10/23/18 10/23/18 10/23/18 06:00 07:00 08:00 Temperature Pulse Rate 92 H 89 89 Pulse Rate [ Bases] Pulse Rate [ 95 H From Monitor] Pulse Rate [ Throughout] Respiratory 22 20 21 Rate Respiratory Rate [Bases] Respiratory Rate [ Throughout] Blood Pressure 142/81 137/73 117/68 O2 Sat by Pulse 100 97 93 Oximetry 10/23/18 10/23/18 10/23/18 09:00 09:06 09:10 Temperature 98.6 F Pulse Rate 91 H 90 90 Pulse Rate [ 93 H Bases] Pulse Rate [ From Monitor] Pulse Rate [ 93 H Throughout] Respiratory 22 8 L Rate Respiratory 20 Rate [Bases] Respiratory 20 Rate [ Throughout] Blood Pressure 136/73 136/73 145/80 O2 Sat by Pulse 96 100 Oximetry 10/23/18 10/23/18 10/23/18 09:25 10:00 11:00 Temperature Pulse Rate 90 92 H Pulse Rate [ 90 Bases] Pulse Rate [ From Monitor] Pulse Rate [ 90 Throughout] Respiratory 14 21 Rate Respiratory 14 Rate [Bases] Respiratory 14 Rate [ Throughout] Blood Pressure 145/75 130/71 O2 Sat by Pulse 100 99 Oximetry - General Appearance General appearance: chronically ill, intubated EENT: ATNC Neck: no JVD Respiratory: Present: Clear to Ascultation Cardiology: regular, S1S2 Gastrointestinal: normal Integumentary: warm and dry Neurologic: other (opens eyes spontaneously, not following commands, off all sedation, visual tracking noted ) - Lab 10/19/18 14:54 10/21/18 06:00 Most recent lab results Calcium 7.9 mg/dL (8.4-10.2) L 10/21/18 06:00 Phosphorus 8.50 mg/dL (2.5-4.5) H 10/14/18 09:40 Magnesium 2.10 mg/dL (1.7-2.3) 10/14/18 09:40 Urine Creatinine 57.5 mg/dL (0.1-20.0) H 10/11/18 05:40 Urine Sodium 70 mmol/L 10/11/18 05:40 Urine Total Protein 44 mg/dL (5-11.8) H 10/11/18 05:40 - Allied health notes Allied health notes reviewed: nursing Medications & Allergies - Medications Allergies/Adverse Reactions: Allergies No Known Allergies Allergy (Unverified 09/11/18 17:50) Home Medications: Home Medications Medication Instructions Recorded Confirmed Last Taken Type No Known Home Medications [No 10/02/18 10/02/18 Unknown History Reported Home Medications] Active Medications: Generic Name Dose Route Start Last Admin Trade Name Freq PRN Reason Stop Dose Admin Acetaminophen 650 mg 09/11/18 19:30 10/09/18 16:32 Tylenol PO 650 mg Q4H PRN Administration Pain MILD(1-3)/Fever >100.5/RIVERA Acetaminophen 650 mg 09/21/18 07:39 10/07/18 21:15 Tylenol [place] 650 mg Q4H PRN Administration Fever >101 Albuterol 2.5 mg 09/20/18 20:00 10/23/18 09:10 Proventil IH 2.5 mg Q6HRT GIA Administration Amiodarone HCl 200 mg 10/22/18 10:00 10/23/18 10:48 Cordarone PO 200 mg DAILY GIA Administration Lipase/Protease/Amylase 1 each 09/30/18 12:01 Abril Gibbs 10,500 Unit FEEDTUBE PRN PRN For Clogged Feeding Tube Atovaquone 750 mg 09/21/18 10:00 10/23/18 09:11 Mepron PO 750 mg BID GIA Administration Azithromycin 1,200 mg 10/18/18 10:00 10/18/18 10:35 Zithromax PO 1,200 mg Tu GIA Administration Darunavir 800 mg 10/21/18 12:00 10/23/18 09:09 Prezista PO 800 mg QDAY GIA Administration Emtricitabine 200 mg 10/13/18 10:00 10/21/18 14:29 Emtriva PO 200 mg Q96H GIA Administration Famotidine 20 mg 10/10/18 10:00 10/23/18 09:05 Pepcid PO 20 mg DAILY GIA Administration Fluconazole 200 mg 10/05/18 12:00 10/23/18 09:11 Diflucan PO 200 mg QDAY GIA Administration Folic Acid 1 mg 10/07/18 10:00 10/23/18 09:08 Folvite PO 1 mg QDAY GIA Administration Glycopyrrolate 2 mg 10/07/18 18:00 10/23/18 11:47 Robinul PO 2 mg Q6HR GIA Administration Hydrophilic Ointment 1 applic 09/21/18 01:46 09/22/18 03:46 Vaseline Lip Therapy TP 1 applic Q2HR PRN Administration Dry Lips Ganciclovir Sodium 150 mg/ 250 mls @ 100 mls/hr 10/12/18 10:00 10/21/18 14:23 Sodium Chloride IV 100 mls/hr MoWeFr GIA Administration Sodium Chloride 100 mls @ 999 mls/hr 10/17/18 10:39 Nacl 0.9% IV CHERYL PRN Hypotension Levetiracetam 750 mg 10/12/18 22:00 10/23/18 09:08 Keppra PO 750 mg BID GIA Administration Levothyroxine Sodium 25 mcg 09/19/18 06:00 10/23/18 06:55 Synthroid PO 25 mcg DAILY@0600 GIA Administration Metoprolol Tartrate 12.5 mg 10/10/18 13:00 10/23/18 09:06 Lopressor PO 12.5 mg BID GIA Administration Morphine Sulfate 2 mg 10/20/18 18:37 Morphine IV Q4H PRN Pain, Moderate (4-6) Multi-Ingred Cream/Lotion/Oil/Oint 1 applic 09/21/18 01:46 Artificial Tears Ophth Oint OU Q4HR PRN Dry Eye(s) Ondansetron HCl 4 mg 09/11/18 19:30 Zofran IV Q8H PRN Nausea And Vomiting Ritonavir 100 mg 10/21/18 12:00 10/23/18 09:10 Norvir PO 100 mg QDAY GIA Administration Scopolamine 1 each 09/18/18 18:00 10/21/18 18:22 Transderm-Scop TD 1 each Q3D GIA Administration Simple Syrup 15 ml 10/15/18 10:45 Simple Syrup FEEDTUBE PRN PRN Hypoglycemia Simple Syrup 30 ml 10/15/18 10:45 Simple Syrup FEEDTUBE PRN PRN Hypoglycemia Sodium Bicarbonate 325 mg 10/15/18 10:45 Sodium Bicarbonate FEEDTUBE PRN PRN For Clogged Feeding Tube Sodium Chloride 10 ml 09/11/18 22:00 10/23/18 09:13 Sodium Chloride Flush Syringe 10 Ml IV 10 ml BID GIA Administration Sodium Chloride 10 ml 09/11/18 19:30 10/21/18 18:16 Sodium Chloride Flush Syringe 10 Ml IV 10 ml PRN PRN Administration LINE FLUSH
--- NOTE | 2018-10-23 14:00 | Progress Note ---
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) Elevated LFTs Neutropenia Thrombocytopenia (I had an extended discussion with his Sister over the phone and explained the concept of substituted judgement to her; she wants some time to make a decision) - lower extremity dopplers -ve - continue SCD's for VTE prophylaxis - resume Eliquis post trach (stopped Apixaban in anticipation of tracheostomy) - prn ABG's & CXR's at this point (will repeat CXR in am) - continue daily SBT's as tolerated - for tracheostomy tentatively on 10/25/18 - continue HD/UF for toxin and volume clearance - continue therapy for CMV encephalitis, neuro syphillis as well as ART - appreciate ID input - continue Robinul & scopolamine for secretion control (secretions improved) - continue to hold all other sedating medications - continue supplemental oxygen to keep sats > 90% - continue bronchodilators with pulmonary hygiene per RT - Continue empiric and targeted anti-infective's per ID recs antibiotics per ID - continue set rate at 12/min - daily SAT's if sedation resumed - continue enteral nutrition as tolerated - when resumed target sedation for RASS 0 to -1 - PT/OT/ROM exercises as tolerated - mobility protocol for pressure ulcer prophylaxis - continue GI & VTE prophylaxis - continue other care per attending / other consultants ...... re-evaluate in am & prn The high probability of a clinically significant, sudden or life threatening deterioration of the [cardiac, respiratory and neurologic] system(s) required my full and direct attention, intervention and personal management. The aggregate critical care time was [31] minutes. This time is in addition to time spent performing reported procedures but includes the following: [x] Data Review and interpretation [x] Patient assessment and monitoring of vital signs [x] Documentation [x] Medication orders and management Subjective Date of service: 10/23/18 Principal diagnosis: Severe sepsis; Ac hypoxemic Resp failure; [place]. Pneumonia; Ac encephalopathy Interval history: Patient is seen today for: Severe sepsis (present on admission with fever, tachycardia, hypotension and elevated lactate); Acute hypoxemic Respiratory failure; Bilateral pneumonia; Acute encephalopathy (Toxic / Metabolic); Atrial Fibrillation with RVR Seen and examined at bedside; 24hour events reviewed; nursing and respiratory care staff consulted; no adverse overnight events reported to me; resting peacefully in bed; alert but not following my prompts today; remains on MVS; secretions still occasionally moderate; no seizure activity and left hemiparesis is improved Objective Vital Signs - 12hr 10/23/18 10/23/18 10/23/18 01:42 03:00 03:08 Temperature Pulse Rate 86 Pulse Rate [ Bases] Pulse Rate [ From Monitor] Pulse Rate [ 88 87 Throughout] Respiratory 22 Rate Respiratory Rate [Bases] Respiratory 22 20 Rate [ Throughout] Blood Pressure 123/74 O2 Sat by Pulse 97 Oximetry 10/23/18 10/23/18 10/23/18 04:00 04:52 05:00 Temperature 98.3 F Pulse Rate 91 H 90 88 Pulse Rate [ Bases] Pulse Rate [ 92 H From Monitor] Pulse Rate [ Throughout] Respiratory 16 22 Rate Respiratory Rate [Bases] Respiratory Rate [ Throughout] Blood Pressure 146/80 137/85 137/83 O2 Sat by Pulse 98 100 98 Oximetry 10/23/18 10/23/18 10/23/18 06:00 07:00 08:00 Temperature Pulse Rate 92 H 89 89 Pulse Rate [ Bases] Pulse Rate [ 95 H From Monitor] Pulse Rate [ Throughout] Respiratory 22 20 21 Rate Respiratory Rate [Bases] Respiratory Rate [ Throughout] Blood Pressure 142/81 137/73 117/68 O2 Sat by Pulse 100 97 93 Oximetry 10/23/18 10/23/18 10/23/18 09:00 09:06 09:10 Temperature 98.6 F Pulse Rate 91 H 90 90 Pulse Rate [ 93 H Bases] Pulse Rate [ From Monitor] Pulse Rate [ 93 H Throughout] Respiratory 22 8 L Rate Respiratory 20 Rate [Bases] Respiratory 20 Rate [ Throughout] Blood Pressure 136/73 136/73 145/80 O2 Sat by Pulse 96 100 Oximetry 10/23/18 10/23/18 10/23/18 09:25 10:00 11:00 Temperature Pulse Rate 90 92 H Pulse Rate [ 90 Bases] Pulse Rate [ From Monitor] Pulse Rate [ 90 Throughout] Respiratory 14 21 Rate Respiratory 14 Rate [Bases] Respiratory 14 Rate [ Throughout] Blood Pressure 145/75 130/71 O2 Sat by Pulse 100 99 Oximetry 10/23/18 12:00 Temperature Pulse Rate 90 Pulse Rate [ Bases] Pulse Rate [ 90 From Monitor] Pulse Rate [ Throughout] Respiratory 21 Rate Respiratory Rate [Bases] Respiratory Rate [ Throughout] Blood Pressure 112/58 O2 Sat by Pulse 96 Oximetry Constitutional: lethargic, agitated, appears uncomfortable, other (young looking AAM, normocephalic with mildly increased respiratory effort at rest) Eyes: non-icteric ENT: oropharynx moist, other (ETT 25 cm NIKA) Neck: supple, no lymphadenopathy, other (no thyromegaly) Effort: normal Ascultation: Bilateral: rhonchi (scant) Percussion: Bilateral: not dull Cardiovascular: regular rate and rhythm, other (S1,S2, no murmurs, gallps or rubs) Gastrointestinal: normoactive bowel sounds, soft, non-tender, non-distended Integumentary: rash Extremities: no cyanosis, pulses normal, no ischemia or petechiae, edema (1+) Neurologic: non-focal exam (grossly), pupils equal and round, other (Left sided hemiparesis) Psychiatric: other (unable to assess) CBC and BMP: 10/24/18 04:50 10/24/18 04:50 ABG, PT/INR, D-dimer: ABG POC ABG pH 7.399 (7.35-7.45) 10/20/18 12:17 POC ABG pCO2 33.3 (35-45) L 10/20/18 12:17 POC ABG pO2 107 (80-105) H 10/20/18 12:17 POC ABG HCO3 20.6 10/20/18 12:17 POC ABG Total CO2 22 10/20/18 12:17 POC ABG O2 Sat 98 10/20/18 12:17 PT/INR, D-dimer PT 16.0 Sec. (12.2-14.9) H 10/10/18 08:09 INR 1.20 (0.87-1.13) H 10/10/18 08:09 Abnormal lab findings: Abnormal Labs 09/11/18 09/11/18 09/11/18 18:00 18:00 18:00 WBC 1.9 L* RBC Hgb Hct RDW Plt Count 130 L Seg Neuts % (Manual) Lymphocytes % (Manual) Monocytes % (Manual) 16.0 H Eosinophils % (Manual) Basophils % (Manual) Nucleated RBC % Seg Neutrophils # Man 0.9 L Abs Lymphs (Manual) Lymphocytes # (Manual) 0.5 L Basophils # (Manual) PT INR APTT Heparin Anti-Xa Level POC ABG pH POC ABG pCO2 POC ABG pO2 Sodium 131 L Potassium Chloride Carbon Dioxide 17 L BUN 21 H Creatinine Glucose 126 H POC Glucose Lactic Acid 2.60 H* Calcium 8.1 L Phosphorus Magnesium Iron TIBC Ferritin AST 123 H ALT 115 H Total Creatine Kinase Total Protein Albumin 3.0 L Vitamin B12 Folate TSH Free T4 Urine WBC (Auto) Urine Creatinine Urine Chloride Urine Total Protein CSF VDRL Lymph Enumerat CD4/CD8 Absolute CD3 Count % CD4 Cells Absolute CD4 Count % CD8 Cells Absolute CD19 Count T.pallidum Ab (FTA-ABS) HIV-1 RNA PCR copies/ml HIV-1 RNA (PCR) log Miscellaneous Test 09/11/18 09/13/18 09/13/18 19:01 04:28 07:31 WBC 2.0 L RBC Hgb Hct RDW Plt Count 116 L Seg Neuts % (Manual) Lymphocytes % (Manual) Monocytes % (Manual) 8.0 H Eosinophils % (Manual) Basophils % (Manual) Nucleated RBC % Seg Neutrophils # Man 1.0 L Abs Lymphs (Manual) Lymphocytes # (Manual) 0.5 L Basophils # (Manual) PT INR APTT Heparin Anti-Xa Level POC ABG pH POC ABG pCO2 POC ABG pO2 Sodium Potassium Chloride 110.4 H Carbon Dioxide 19 L BUN Creatinine Glucose POC Glucose Lactic Acid 3.70 H* Calcium 7.9 L Phosphorus Magnesium Iron TIBC Ferritin AST ALT Total Creatine Kinase Total Protein Albumin Vitamin B12 Folate TSH Free T4 Urine WBC (Auto) Urine Creatinine Urine Chloride Urine Total Protein CSF VDRL Lymph Enumerat CD4/CD8 Absolute CD3 Count % CD4 Cells Absolute CD4 Count % CD8 Cells Absolute CD19 Count T.pallidum Ab (FTA-ABS) HIV-1 RNA PCR copies/ml HIV-1 RNA (PCR) log Miscellaneous Test 09/13/18 09/13/18 09/13/18 07:31 12:29 12:29 WBC RBC Hgb Hct RDW Plt Count Seg Neuts % (Manual) Lymphocytes % (Manual) Monocytes % (Manual) Eosinophils % (Manual) Basophils % (Manual) Nucleated RBC % Seg Neutrophils # Man Abs Lymphs (Manual) 309 L Lymphocytes # (Manual) Basophils # (Manual) PT INR APTT Heparin Anti-Xa Level POC ABG pH POC ABG pCO2 POC ABG pO2 Sodium Potassium Chloride Carbon Dioxide BUN Creatinine Glucose POC Glucose Lactic Acid Calcium Phosphorus Magnesium Iron TIBC Ferritin AST 70 H ALT 68 H Total Creatine Kinase Total Protein Albumin 2.5 L Vitamin B12 Folate TSH Free T4 Urine WBC (Auto) Urine Creatinine Urine Chloride Urine Total Protein CSF VDRL Lymph Enumerat CD4/CD8 0.01 L Absolute CD3 Count 220 L % CD4 Cells 1 L Absolute CD4 Count 4 L % CD8 Cells 70 H Absolute CD19 Count 54 L T.pallidum Ab (FTA-ABS) HIV-1 RNA PCR copies/ml 48599 H HIV-1 RNA (PCR) log 4.71 H Miscellaneous Test 09/13/18 09/14/18 09/14/18 12:29 07:17 16:34 WBC RBC Hgb Hct RDW Plt Count Seg Neuts % (Manual) Lymphocytes % (Manual) Monocytes % (Manual) Eosinophils % (Manual) Basophils % (Manual) Nucleated RBC % Seg Neutrophils # Man Abs Lymphs (Manual) Lymphocytes # (Manual) Basophils # (Manual) PT INR APTT Heparin Anti-Xa Level POC ABG pH POC ABG pCO2 POC ABG pO2 Sodium Potassium 3.4 L Chloride Carbon Dioxide 18 L BUN Creatinine Glucose 104 H POC Glucose Lactic Acid Calcium 7.6 L Phosphorus Magnesium Iron TIBC Ferritin AST 49 H ALT Total Creatine Kinase Total Protein Albumin 2.5 L Vitamin B12 Folate TSH Free T4 Urine WBC (Auto) Urine Creatinine Urine Chloride Urine Total Protein CSF VDRL Lymph Enumerat CD4/CD8 Absolute CD3 Count % CD4 Cells Absolute CD4 Count % CD8 Cells Absolute CD19 Count T.pallidum Ab (FTA-ABS) Reactive H HIV-1 RNA PCR copies/ml HIV-1 RNA (PCR) log Miscellaneous Test Flexitest 1 H 09/15/18 09/15/18 09/15/18 05:05 05:05 Unknown WBC 1.6 L* RBC Hgb 10.4 L Hct 31.1 L D RDW Plt Count 113 L Seg Neuts % (Manual) Lymphocytes % (Manual) Monocytes % (Manual) Eosinophils % (Manual) Basophils % (Manual) Nucleated RBC % Seg Neutrophils # Man Abs Lymphs (Manual) Lymphocytes # (Manual) Basophils # (Manual) PT INR APTT Heparin Anti-Xa Level POC ABG pH POC ABG pCO2 POC ABG pO2 Sodium Potassium Chloride 107.9 H Carbon Dioxide 18 L BUN 6 L Creatinine Glucose POC Glucose Lactic Acid Calcium 7.4 L Phosphorus Magnesium Iron TIBC Ferritin AST ALT Total Creatine Kinase Total Protein Albumin Vitamin B12 Folate TSH Free T4 Urine WBC (Auto) Urine Creatinine Urine Chloride Urine Total Protein CSF VDRL Reactive 1:8 H Lymph Enumerat CD4/CD8 Absolute CD3 Count % CD4 Cells Absolute CD4 Count % CD8 Cells Absolute CD19 Count T.pallidum Ab (FTA-ABS) HIV-1 RNA PCR copies/ml HIV-1 RNA (PCR) log Miscellaneous Test 09/16/18 09/16/18 09/16/18 06:55 11:41 11:41 WBC 2.8 L RBC Hgb 10.9 L Hct 33.5 L RDW Plt Count 135 L Seg Neuts % (Manual) Lymphocytes % (Manual) Monocytes % (Manual) Eosinophils % (Manual) Basophils % (Manual) Nucleated RBC % Seg Neutrophils # Man Abs Lymphs (Manual) Lymphocytes # (Manual) Basophils # (Manual) PT INR APTT Heparin Anti-Xa Level POC ABG pH POC ABG pCO2 POC ABG pO2 Sodium Potassium Chloride Carbon Dioxide BUN Creatinine Glucose POC Glucose Lactic Acid Calcium Phosphorus Magnesium Iron TIBC Ferritin AST ALT Total Creatine Kinase Total Protein Albumin Vitamin B12 Folate TSH 4.210 H Free T4 0.72 L Urine WBC (Auto) Urine Creatinine Urine Chloride Urine Total Protein CSF VDRL Lymph Enumerat CD4/CD8 Absolute CD3 Count % CD4 Cells Absolute CD4 Count % CD8 Cells Absolute CD19 Count T.pallidum Ab (FTA-ABS) HIV-1 RNA PCR copies/ml HIV-1 RNA (PCR) log Miscellaneous Test 09/16/18 09/16/18 09/17/18 11:41 15:43 05:13 WBC 2.0 L RBC Hgb 10.9 L Hct 32.7 L RDW Plt Count Seg Neuts % (Manual) Lymphocytes % (Manual) Monocytes % (Manual) Eosinophils % (Manual) Basophils % (Manual) Nucleated RBC % Seg Neutrophils # Man Abs Lymphs (Manual) Lymphocytes # (Manual) Basophils # (Manual) PT INR APTT Heparin Anti-Xa Level POC ABG pH POC ABG pCO2 29.3 L POC ABG pO2 70 L Sodium Potassium Chloride Carbon Dioxide BUN Creatinine Glucose POC Glucose Lactic Acid Calcium Phosphorus Magnesium Iron TIBC Ferritin AST ALT Total Creatine Kinase Total Protein Albumin Vitamin B12 934.5 H Folate TSH Free T4 Urine WBC (Auto) Urine Creatinine Urine Chloride Urine Total Protein CSF VDRL Lymph Enumerat CD4/CD8 Absolute CD3 Count % CD4 Cells Absolute CD4 Count % CD8 Cells Absolute CD19 Count T.pallidum Ab (FTA-ABS) HIV-1 RNA PCR copies/ml HIV-1 RNA (PCR) log Miscellaneous Test 09/17/18 09/17/18 09/18/18 05:13 21:57 12:46 WBC RBC Hgb Hct RDW Plt Count Seg Neuts % (Manual) Lymphocytes % (Manual) Monocytes % (Manual) Eosinophils % (Manual) Basophils % (Manual) Nucleated RBC % Seg Neutrophils # Man Abs Lymphs (Manual) Lymphocytes # (Manual) Basophils # (Manual) PT INR APTT Heparin Anti-Xa Level POC ABG pH POC ABG pCO2 POC ABG pO2 Sodium Potassium Chloride 107.2 H Carbon Dioxide 21 L BUN 3 L Creatinine 0.7 L Glucose POC Glucose 108 H Lactic Acid Calcium 7.9 L Phosphorus Magnesium Iron TIBC Ferritin AST ALT Total Creatine Kinase Total Protein 6.1 L Albumin 2.6 L Vitamin B12 Folate TSH Free T4 0.75 L Urine WBC (Auto) Urine Creatinine Urine Chloride Urine Total Protein CSF VDRL Lymph Enumerat CD4/CD8 Absolute CD3 Count % CD4 Cells Absolute CD4 Count % CD8 Cells Absolute CD19 Count T.pallidum Ab (FTA-ABS) HIV-1 RNA PCR copies/ml HIV-1 RNA (PCR) log Miscellaneous Test 09/18/18 09/19/18 09/19/18 12:46 04:57 04:57 WBC 2.1 L RBC Hgb 11.4 L Hct 34.2 L RDW Plt Count Seg Neuts % (Manual) Lymphocytes % (Manual) Monocytes % (Manual) Eosinophils % (Manual) Basophils % (Manual) Nucleated RBC % Seg Neutrophils # Man Abs Lymphs (Manual) Lymphocytes # (Manual) Basophils # (Manual) PT INR APTT Heparin Anti-Xa Level POC ABG pH POC ABG pCO2 POC ABG pO2 Sodium Potassium Chloride Carbon Dioxide 19 L BUN 6 L Creatinine Glucose POC Glucose Lactic Acid Calcium 7.9 L Phosphorus Magnesium Iron TIBC Ferritin AST ALT Total Creatine Kinase Total Protein Albumin Vitamin B12 Folate TSH 5.190 H Free T4 Urine WBC (Auto) Urine Creatinine Urine Chloride Urine Total Protein CSF VDRL Lymph Enumerat CD4/CD8 Absolute CD3 Count % CD4 Cells Absolute CD4 Count % CD8 Cells Absolute CD19 Count T.pallidum Ab (FTA-ABS) HIV-1 RNA PCR copies/ml HIV-1 RNA (PCR) log Miscellaneous Test 09/19/18 09/19/18 09/20/18 15:00 15:00 05:33 WBC RBC Hgb Hct RDW Plt Count Seg Neuts % (Manual) Lymphocytes % (Manual) Monocytes % (Manual) Eosinophils % (Manual) Basophils % (Manual) Nucleated RBC % Seg Neutrophils # Man Abs Lymphs (Manual) Lymphocytes # (Manual) Basophils # (Manual) PT INR APTT Heparin Anti-Xa Level POC ABG pH POC ABG pCO2 POC ABG pO2 Sodium 136 L Potassium Chloride Carbon Dioxide 19 L BUN 7 L Creatinine Glucose POC Glucose Lactic Acid Calcium Phosphorus Magnesium Iron TIBC Ferritin AST ALT Total Creatine Kinase Total Protein Albumin Vitamin B12 Folate TSH Free T4 Urine WBC (Auto) Urine Creatinine Urine Chloride Urine Total Protein CSF VDRL Reactive 1:4 H Lymph Enumerat CD4/CD8 Absolute CD3 Count % CD4 Cells Absolute CD4 Count % CD8 Cells Absolute CD19 Count T.pallidum Ab (FTA-ABS) HIV-1 RNA PCR copies/ml HIV-1 RNA (PCR) log Miscellaneous Test Flexitest 1 H 09/20/18 09/21/18 09/21/18 06:52 01:06 03:49 WBC 2.5 L RBC Hgb Hct RDW Plt Count Seg Neuts % (Manual) Lymphocytes % (Manual) Monocytes % (Manual) Eosinophils % (Manual) Basophils % (Manual) Nucleated RBC % Seg Neutrophils # Man Abs Lymphs (Manual) Lymphocytes # (Manual) Basophils # (Manual) PT INR APTT Heparin Anti-Xa Level POC ABG pH 7.159 L POC ABG pCO2 32.9 L 70.0 H POC ABG pO2 62 L 254 H Sodium Potassium Chloride Carbon Dioxide BUN Creatinine Glucose POC Glucose Lactic Acid Calcium Phosphorus Magnesium Iron TIBC Ferritin AST ALT Total Creatine Kinase Total Protein Albumin Vitamin B12 Folate TSH Free T4 Urine WBC (Auto) Urine Creatinine Urine Chloride Urine Total Protein CSF VDRL Lymph Enumerat CD4/CD8 Absolute CD3 Count % CD4 Cells Absolute CD4 Count % CD8 Cells Absolute CD19 Count T.pallidum Ab (FTA-ABS) HIV-1 RNA PCR copies/ml HIV-1 RNA (PCR) log Miscellaneous Test 09/21/18 09/21/18 09/21/18 04:15 04:15 04:25 WBC 3.1 L RBC Hgb 11.6 L Hct RDW Plt Count Seg Neuts % (Manual) Lymphocytes % (Manual) Monocytes % (Manual) 12.0 H Eosinophils % (Manual) Basophils % (Manual) Nucleated RBC % Seg Neutrophils # Man 1.6 L Abs Lymphs (Manual) Lymphocytes # (Manual) 0.5 L Basophils # (Manual) PT INR APTT Heparin Anti-Xa Level POC ABG pH POC ABG pCO2 POC ABG pO2 Sodium Potassium 6.1 H* D Chloride Carbon Dioxide 19 L BUN Creatinine Glucose 108 H POC Glucose Lactic Acid Calcium Phosphorus Magnesium Iron TIBC Ferritin AST ALT Total Creatine Kinase 685 H Total Protein Albumin Vitamin B12 Folate TSH Free T4 Urine WBC (Auto) Urine Creatinine Urine Chloride Urine Total Protein CSF VDRL Lymph Enumerat CD4/CD8 Absolute CD3 Count % CD4 Cells Absolute CD4 Count % CD8 Cells Absolute CD19 Count T.pallidum Ab (FTA-ABS) HIV-1 RNA PCR copies/ml HIV-1 RNA (PCR) log Miscellaneous Test 09/21/18 09/21/18 09/21/18 09:59 10:07 11:00 WBC RBC Hgb 11.7 L Hct RDW Plt Count Seg Neuts % (Manual) Lymphocytes % (Manual) Monocytes % (Manual) Eosinophils % (Manual) Basophils % (Manual) Nucleated RBC % Seg Neutrophils # Man Abs Lymphs (Manual) Lymphocytes # (Manual) Basophils # (Manual) PT INR APTT Heparin Anti-Xa Level POC ABG pH 7.301 L POC ABG pCO2 POC ABG pO2 109 H Sodium Potassium 6.5 H* Chloride Carbon Dioxide 18 L BUN Creatinine 2.1 H D Glucose POC Glucose Lactic Acid Calcium 8.1 L Phosphorus Magnesium Iron TIBC Ferritin AST 94 H ALT Total Creatine Kinase Total Protein Albumin 2.8 L Vitamin B12 Folate TSH Free T4 Urine WBC (Auto) Urine Creatinine Urine Chloride Urine Total Protein CSF VDRL Lymph Enumerat CD4/CD8 Absolute CD3 Count % CD4 Cells Absolute CD4 Count % CD8 Cells Absolute CD19 Count T.pallidum Ab (FTA-ABS) HIV-1 RNA PCR copies/ml HIV-1 RNA (PCR) log Miscellaneous Test 09/21/18 09/21/18 09/21/18 15:00 21:54 21:54 WBC RBC Hgb Hct RDW Plt Count Seg Neuts % (Manual) Lymphocytes % (Manual) Monocytes % (Manual) Eosinophils % (Manual) Basophils % (Manual) Nucleated RBC % Seg Neutrophils # Man Abs Lymphs (Manual) Lymphocytes # (Manual) Basophils # (Manual) PT 19.9 H INR 1.65 H APTT 40.9 H Heparin Anti-Xa Level 0.98 H POC ABG pH POC ABG pCO2 POC ABG pO2 Sodium Potassium 5.2 H Chloride Carbon Dioxide BUN Creatinine Glucose POC Glucose Lactic Acid Calcium Phosphorus Magnesium Iron TIBC Ferritin AST ALT Total Creatine Kinase Total Protein Albumin Vitamin B12 Folate TSH Free T4 Urine WBC (Auto) Urine Creatinine Urine Chloride Urine Total Protein CSF VDRL Lymph Enumerat CD4/CD8 Absolute CD3 Count % CD4 Cells Absolute CD4 Count % CD8 Cells Absolute CD19 Count T.pallidum Ab (FTA-ABS) HIV-1 RNA PCR copies/ml HIV-1 RNA (PCR) log Miscellaneous Test 09/21/18 09/22/18 09/22/18 22:57 03:01 05:27 WBC RBC Hgb Hct RDW Plt Count Seg Neuts % (Manual) Lymphocytes % (Manual) Monocytes % (Manual) Eosinophils % (Manual) Basophils % (Manual) Nucleated RBC % Seg Neutrophils # Man Abs Lymphs (Manual) Lymphocytes # (Manual) Basophils # (Manual) PT INR APTT Heparin Anti-Xa Level POC ABG pH POC ABG pCO2 32.7 L POC ABG pO2 Sodium Potassium Chloride Carbon Dioxide BUN Creatinine Glucose POC Glucose 124 H 128 H Lactic Acid Calcium Phosphorus Magnesium Iron TIBC Ferritin AST ALT Total Creatine Kinase Total Protein Albumin Vitamin B12 Folate TSH Free T4 Urine WBC (Auto) Urine Creatinine Urine Chloride Urine Total Protein CSF VDRL Lymph Enumerat CD4/CD8 Absolute CD3 Count % CD4 Cells Absolute CD4 Count % CD8 Cells Absolute CD19 Count T.pallidum Ab (FTA-ABS) HIV-1 RNA PCR copies/ml HIV-1 RNA (PCR) log Miscellaneous Test 09/22/18 09/22/18 09/22/18 07:00 07:00 11:32 WBC 1.8 L* RBC 3.59 L Hgb 10.1 L Hct 30.8 L RDW Plt Count 126 L Seg Neuts % (Manual) Lymphocytes % (Manual) Monocytes % (Manual) Eosinophils % (Manual) Basophils % (Manual) Nucleated RBC % Seg Neutrophils # Man Abs Lymphs (Manual) Lymphocytes # (Manual) Basophils # (Manual) PT INR APTT Heparin Anti-Xa Level POC ABG pH POC ABG pCO2 POC ABG pO2 Sodium Potassium Chloride Carbon Dioxide BUN 27 H Creatinine 2.0 H Glucose 128 H POC Glucose 123 H Lactic Acid Calcium 6.9 L Phosphorus Magnesium Iron TIBC Ferritin AST ALT Total Creatine Kinase Total Protein Albumin Vitamin B12 Folate TSH Free T4 Urine WBC (Auto) Urine Creatinine Urine Chloride Urine Total Protein CSF VDRL Lymph Enumerat CD4/CD8 Absolute CD3 Count % CD4 Cells Absolute CD4 Count % CD8 Cells Absolute CD19 Count T.pallidum Ab (FTA-ABS) HIV-1 RNA PCR copies/ml HIV-1 RNA (PCR) log Miscellaneous Test 09/22/18 09/22/18 09/22/18 15:52 18:18 23:52 WBC RBC Hgb Hct RDW Plt Count Seg Neuts % (Manual) Lymphocytes % (Manual) Monocytes % (Manual) Eosinophils % (Manual) Basophils % (Manual) Nucleated RBC % Seg Neutrophils # Man Abs Lymphs (Manual) Lymphocytes # (Manual) Basophils # (Manual) PT INR APTT Heparin Anti-Xa Level POC ABG pH POC ABG pCO2 48.7 H POC ABG pO2 Sodium Potassium Chloride Carbon Dioxide BUN Creatinine Glucose POC Glucose 110 H 124 H Lactic Acid Calcium Phosphorus Magnesium Iron TIBC Ferritin AST ALT Total Creatine Kinase Total Protein Albumin Vitamin B12 Folate TSH Free T4 Urine WBC (Auto) Urine Creatinine Urine Chloride Urine Total Protein CSF VDRL Lymph Enumerat CD4/CD8 Absolute CD3 Count % CD4 Cells Absolute CD4 Count % CD8 Cells Absolute CD19 Count T.pallidum Ab (FTA-ABS) HIV-1 RNA PCR copies/ml HIV-1 RNA (PCR) log Miscellaneous Test 09/23/18 09/23/18 09/23/18 04:10 05:55 05:55 WBC RBC Hgb 10.0 L Hct 30.3 L RDW Plt Count 117 L Seg Neuts % (Manual) Lymphocytes % (Manual) Monocytes % (Manual) Eosinophils % (Manual) Basophils % (Manual) Nucleated RBC % Seg Neutrophils # Man Abs Lymphs (Manual) Lymphocytes # (Manual) Basophils # (Manual) PT INR APTT Heparin Anti-Xa Level 0.26 L POC ABG pH POC ABG pCO2 POC ABG pO2 144 H Sodium Potassium Chloride Carbon Dioxide BUN Creatinine Glucose POC Glucose Lactic Acid Calcium Phosphorus Magnesium Iron TIBC Ferritin AST ALT Total Creatine Kinase Total Protein Albumin Vitamin B12 Folate TSH Free T4 Urine WBC (Auto) Urine Creatinine Urine Chloride Urine Total Protein CSF VDRL Lymph Enumerat CD4/CD8 Absolute CD3 Count % CD4 Cells Absolute CD4 Count % CD8 Cells Absolute CD19 Count T.pallidum Ab (FTA-ABS) HIV-1 RNA PCR copies/ml HIV-1 RNA (PCR) log Miscellaneous Test 09/23/18 09/23/18 09/23/18 08:10 08:10 23:57 WBC 1.3 L* RBC 3.53 L Hgb 9.9 L Hct 30.0 L RDW Plt Count 119 L Seg Neuts % (Manual) Lymphocytes % (Manual) Monocytes % (Manual) Eosinophils % (Manual) Basophils % (Manual) Nucleated RBC % Seg Neutrophils # Man Abs Lymphs (Manual) Lymphocytes # (Manual) Basophils # (Manual) PT INR APTT Heparin Anti-Xa Level POC ABG pH POC ABG pCO2 POC ABG pO2 Sodium Potassium Chloride Carbon Dioxide BUN Creatinine Glucose 122 H POC Glucose 115 H Lactic Acid Calcium 6.9 L Phosphorus Magnesium Iron TIBC Ferritin AST ALT Total Creatine Kinase Total Protein Albumin Vitamin B12 Folate TSH Free T4 Urine WBC (Auto) Urine Creatinine Urine Chloride Urine Total Protein CSF VDRL Lymph Enumerat CD4/CD8 Absolute CD3 Count % CD4 Cells Absolute CD4 Count % CD8 Cells Absolute CD19 Count T.pallidum Ab (FTA-ABS) HIV-1 RNA PCR copies/ml HIV-1 RNA (PCR) log Miscellaneous Test 09/24/18 09/24/18 09/24/18 12:04 14:42 18:10 WBC RBC Hgb Hct RDW Plt Count Seg Neuts % (Manual) Lymphocytes % (Manual) Monocytes % (Manual) Eosinophils % (Manual) Basophils % (Manual) Nucleated RBC % Seg Neutrophils # Man Abs Lymphs (Manual) Lymphocytes # (Manual) Basophils # (Manual) PT INR APTT Heparin Anti-Xa Level 0.76 H POC ABG pH POC ABG pCO2 POC ABG pO2 Sodium Potassium Chloride Carbon Dioxide BUN Creatinine Glucose POC Glucose 111 H 138 H Lactic Acid Calcium Phosphorus Magnesium Iron TIBC Ferritin AST ALT Total Creatine Kinase Total Protein Albumin Vitamin B12 Folate TSH Free T4 Urine WBC (Auto) Urine Creatinine Urine Chloride Urine Total Protein CSF VDRL Lymph Enumerat CD4/CD8 Absolute CD3 Count % CD4 Cells Absolute CD4 Count % CD8 Cells Absolute CD19 Count T.pallidum Ab (FTA-ABS) HIV-1 RNA PCR copies/ml HIV-1 RNA (PCR) log Miscellaneous Test 09/25/18 09/25/18 09/25/18 03:45 04:24 14:20 WBC RBC Hgb 9.7 L Hct 29.4 L RDW Plt Count 104 L Seg Neuts % (Manual) Lymphocytes % (Manual) Monocytes % (Manual) Eosinophils % (Manual) Basophils % (Manual) Nucleated RBC % Seg Neutrophils # Man Abs Lymphs (Manual) Lymphocytes # (Manual) Basophils # (Manual) PT INR APTT Heparin Anti-Xa Level POC ABG pH 7.460 H POC ABG pCO2 32.9 L POC ABG pO2 Sodium Potassium 3.5 L Chloride 110.3 H Carbon Dioxide BUN Creatinine Glucose 105 H POC Glucose Lactic Acid Calcium 6.7 L Phosphorus Magnesium Iron TIBC Ferritin AST 633 H ALT 481 H Total Creatine Kinase Total Protein 4.8 L D Albumin 1.9 L Vitamin B12 Folate TSH Free T4 Urine WBC (Auto) Urine Creatinine Urine Chloride Urine Total Protein CSF VDRL Lymph Enumerat CD4/CD8 Absolute CD3 Count % CD4 Cells Absolute CD4 Count % CD8 Cells Absolute CD19 Count T.pallidum Ab (FTA-ABS) HIV-1 RNA PCR copies/ml HIV-1 RNA (PCR) log Miscellaneous Test 09/26/18 09/26/18 09/26/18 06:15 06:15 10:43 WBC 1.2 L* RBC 3.32 L Hgb 9.2 L Hct 28.6 L RDW Plt Count 97 L Seg Neuts % (Manual) 24.0 L Lymphocytes % (Manual) 43.0 H Monocytes % (Manual) 19.0 H Eosinophils % (Manual) 8.0 H Basophils % (Manual) 2.0 H Nucleated RBC % 3.0 H Seg Neutrophils # Man 0.0 L Abs Lymphs (Manual) Lymphocytes # (Manual) 0.0 L Basophils # (Manual) PT INR APTT Heparin Anti-Xa Level POC ABG pH 7.459 H POC ABG pCO2 POC ABG pO2 141 H Sodium Potassium Chloride 112.8 H Carbon Dioxide BUN Creatinine Glucose 110 H POC Glucose Lactic Acid Calcium 7.0 L Phosphorus 0.90 L* Magnesium Iron TIBC Ferritin AST 362 H ALT 360 H Total Creatine Kinase Total Protein 4.9 L Albumin 1.5 L Vitamin B12 Folate TSH Free T4 Urine WBC (Auto) Urine Creatinine Urine Chloride Urine Total Protein CSF VDRL Lymph Enumerat CD4/CD8 Absolute CD3 Count % CD4 Cells Absolute CD4 Count % CD8 Cells Absolute CD19 Count T.pallidum Ab (FTA-ABS) HIV-1 RNA PCR copies/ml HIV-1 RNA (PCR) log Miscellaneous Test 09/26/18 09/27/18 09/28/18 13:56 04:11 07:49 WBC RBC Hgb 9.1 L Hct 29.1 L RDW Plt Count 96 L Seg Neuts % (Manual) Lymphocytes % (Manual) Monocytes % (Manual) Eosinophils % (Manual) Basophils % (Manual) Nucleated RBC % Seg Neutrophils # Man Abs Lymphs (Manual) Lymphocytes # (Manual) Basophils # (Manual) PT INR APTT Heparin Anti-Xa Level POC ABG pH POC ABG pCO2 POC ABG pO2 Sodium 146 H Potassium Chloride 111.6 H Carbon Dioxide BUN Creatinine Glucose POC Glucose 135 H Lactic Acid Calcium 7.4 L Phosphorus Magnesium Iron TIBC Ferritin AST ALT Total Creatine Kinase Total Protein Albumin Vitamin B12 Folate TSH Free T4 Urine WBC (Auto) Urine Creatinine Urine Chloride Urine Total Protein CSF VDRL Lymph Enumerat CD4/CD8 Absolute CD3 Count % CD4 Cells Absolute CD4 Count % CD8 Cells Absolute CD19 Count T.pallidum Ab (FTA-ABS) HIV-1 RNA PCR copies/ml HIV-1 RNA (PCR) log Miscellaneous Test 09/28/18 09/29/18 09/29/18 10:43 05:00 05:00 WBC 1.2 L* RBC 3.13 L Hgb 8.6 L Hct 27.3 L RDW Plt Count 137 L Seg Neuts % (Manual) Lymphocytes % (Manual) Monocytes % (Manual) 16.0 H Eosinophils % (Manual) Basophils % (Manual) Nucleated RBC % 4.0 H Seg Neutrophils # Man 0.5 L Abs Lymphs (Manual) Lymphocytes # (Manual) 0.3 L Basophils # (Manual) PT INR APTT Heparin Anti-Xa Level POC ABG pH 7.300 L POC ABG pCO2 53.9 H POC ABG pO2 Sodium 147 H Potassium 3.4 L Chloride 114.5 H Carbon Dioxide BUN Creatinine Glucose POC Glucose Lactic Acid Calcium 7.7 L Phosphorus Magnesium Iron TIBC Ferritin AST 69 H ALT 110 H Total Creatine Kinase Total Protein 5.2 L Albumin 1.9 L Vitamin B12 Folate TSH Free T4 Urine WBC (Auto) Urine Creatinine Urine Chloride Urine Total Protein CSF VDRL Lymph Enumerat CD4/CD8 Absolute CD3 Count % CD4 Cells Absolute CD4 Count % CD8 Cells Absolute CD19 Count T.pallidum Ab (FTA-ABS) HIV-1 RNA PCR copies/ml HIV-1 RNA (PCR) log Miscellaneous Test 09/29/18 09/29/18 09/30/18 06:07 13:22 05:19 WBC 0.9 L* RBC 3.03 L Hgb 8.6 L Hct 25.9 L RDW Plt Count Seg Neuts % (Manual) Lymphocytes % (Manual) Monocytes % (Manual) Eosinophils % (Manual) Basophils % (Manual) Nucleated RBC % Seg Neutrophils # Man Abs Lymphs (Manual) Lymphocytes # (Manual) Basophils # (Manual) PT INR APTT Heparin Anti-Xa Level POC ABG pH POC ABG pCO2 46.9 H POC ABG pO2 Sodium Potassium Chloride Carbon Dioxide BUN Creatinine Glucose POC Glucose 109 H Lactic Acid Calcium Phosphorus Magnesium Iron TIBC Ferritin AST ALT Total Creatine Kinase Total Protein Albumin Vitamin B12 Folate TSH Free T4 Urine WBC (Auto) Urine Creatinine Urine Chloride Urine Total Protein CSF VDRL Lymph Enumerat CD4/CD8 Absolute CD3 Count % CD4 Cells Absolute CD4 Count % CD8 Cells Absolute CD19 Count T.pallidum Ab (FTA-ABS) HIV-1 RNA PCR copies/ml HIV-1 RNA (PCR) log Miscellaneous Test 09/30/18 09/30/18 09/30/18 05:19 11:14 23:28 WBC RBC Hgb Hct RDW Plt Count Seg Neuts % (Manual) Lymphocytes % (Manual) Monocytes % (Manual) Eosinophils % (Manual) Basophils % (Manual) Nucleated RBC % Seg Neutrophils # Man Abs Lymphs (Manual) Lymphocytes # (Manual) Basophils # (Manual) PT INR APTT Heparin Anti-Xa Level 0.72 H POC ABG pH POC ABG pCO2 46.6 H POC ABG pO2 Sodium 150 H Potassium Chloride 115.2 H Carbon Dioxide BUN Creatinine Glucose POC Glucose Lactic Acid Calcium 7.9 L Phosphorus Magnesium Iron TIBC Ferritin AST ALT Total Creatine Kinase Total Protein Albumin Vitamin B12 Folate TSH Free T4 Urine WBC (Auto) Urine Creatinine Urine Chloride Urine Total Protein CSF VDRL Lymph Enumerat CD4/CD8 Absolute CD3 Count % CD4 Cells Absolute CD4 Count % CD8 Cells Absolute CD19 Count T.pallidum Ab (FTA-ABS) HIV-1 RNA PCR copies/ml HIV-1 RNA (PCR) log Miscellaneous Test 10/01/18 10/01/18 10/02/18 04:55 04:55 07:15 WBC 0.9 L* 0.7 L* RBC 3.01 L 2.92 L Hgb 8.4 L 8.4 L Hct 26.0 L 24.9 L RDW Plt Count Seg Neuts % (Manual) Lymphocytes % (Manual) Monocytes % (Manual) Eosinophils % (Manual) Basophils % (Manual) Nucleated RBC % Seg Neutrophils # Man Abs Lymphs (Manual) Lymphocytes # (Manual) Basophils # (Manual) PT INR APTT Heparin Anti-Xa Level POC ABG pH POC ABG pCO2 POC ABG pO2 Sodium 147 H Potassium 3.4 L Chloride 113.1 H Carbon Dioxide BUN 22 H Creatinine Glucose POC Glucose Lactic Acid Calcium 7.3 L Phosphorus Magnesium Iron TIBC Ferritin AST ALT Total Creatine Kinase Total Protein Albumin Vitamin B12 Folate TSH Free T4 Urine WBC (Auto) Urine Creatinine Urine Chloride Urine Total Protein CSF VDRL Lymph Enumerat CD4/CD8 Absolute CD3 Count % CD4 Cells Absolute CD4 Count % CD8 Cells Absolute CD19 Count T.pallidum Ab (FTA-ABS) HIV-1 RNA PCR copies/ml HIV-1 RNA (PCR) log Miscellaneous Test 10/02/18 10/03/18 10/03/18 07:15 06:12 06:12 WBC 0.8 L* RBC 2.96 L Hgb 8.5 L Hct 25.9 L RDW 15.4 H Plt Count Seg Neuts % (Manual) Lymphocytes % (Manual) Monocytes % (Manual) Eosinophils % (Manual) Basophils % (Manual) Nucleated RBC % Seg Neutrophils # Man Abs Lymphs (Manual) Lymphocytes # (Manual) Basophils # (Manual) PT INR APTT Heparin Anti-Xa Level POC ABG pH POC ABG pCO2 POC ABG pO2 Sodium Potassium 3.4 L 3.4 L Chloride 108.3 H Carbon Dioxide BUN Creatinine Glucose POC Glucose Lactic Acid Calcium 7.6 L 7.4 L Phosphorus Magnesium Iron TIBC Ferritin AST ALT Total Creatine Kinase Total Protein Albumin Vitamin B12 Folate TSH Free T4 Urine WBC (Auto) Urine Creatinine Urine Chloride Urine Total Protein CSF VDRL Lymph Enumerat CD4/CD8 Absolute CD3 Count % CD4 Cells Absolute CD4 Count % CD8 Cells Absolute CD19 Count T.pallidum Ab (FTA-ABS) HIV-1 RNA PCR copies/ml HIV-1 RNA (PCR) log Miscellaneous Test 10/03/18 10/03/18 10/04/18 11:45 13:23 01:40 WBC RBC Hgb Hct RDW Plt Count Seg Neuts % (Manual) Lymphocytes % (Manual) Monocytes % (Manual) Eosinophils % (Manual) Basophils % (Manual) Nucleated RBC % Seg Neutrophils # Man Abs Lymphs (Manual) Lymphocytes # (Manual) Basophils # (Manual) PT INR APTT Heparin Anti-Xa Level 1.34 H 0.26 L POC ABG pH POC ABG pCO2 POC ABG pO2 Sodium Potassium Chloride Carbon Dioxide BUN Creatinine Glucose POC Glucose Lactic Acid Calcium Phosphorus Magnesium 1.40 L Iron TIBC Ferritin AST ALT Total Creatine Kinase Total Protein Albumin Vitamin B12 Folate TSH Free T4 Urine WBC (Auto) Urine Creatinine Urine Chloride Urine Total Protein CSF VDRL Lymph Enumerat CD4/CD8 Absolute CD3 Count % CD4 Cells Absolute CD4 Count % CD8 Cells Absolute CD19 Count T.pallidum Ab (FTA-ABS) HIV-1 RNA PCR copies/ml HIV-1 RNA (PCR) log Miscellaneous Test 10/04/18 10/04/18 10/06/18 04:45 04:45 09:40 WBC 0.8 L* RBC 3.11 L Hgb 9.0 L Hct 27.4 L RDW 15.4 H Plt Count Seg Neuts % (Manual) Lymphocytes % (Manual) Monocytes % (Manual) Eosinophils % (Manual) Basophils % (Manual) Nucleated RBC % Seg Neutrophils # Man Abs Lymphs (Manual) Lymphocytes # (Manual) Basophils # (Manual) PT INR APTT Heparin Anti-Xa Level POC ABG pH POC ABG pCO2 POC ABG pO2 Sodium Potassium Chloride Carbon Dioxide BUN Creatinine 0.7 L Glucose POC Glucose Lactic Acid Calcium 7.5 L Phosphorus Magnesium Iron 35 L TIBC 157 L Ferritin AST ALT Total Creatine Kinase Total Protein Albumin Vitamin B12 Folate TSH Free T4 Urine WBC (Auto) Urine Creatinine Urine Chloride Urine Total Protein CSF VDRL Lymph Enumerat CD4/CD8 Absolute CD3 Count % CD4 Cells Absolute CD4 Count % CD8 Cells Absolute CD19 Count T.pallidum Ab (FTA-ABS) HIV-1 RNA PCR copies/ml HIV-1 RNA (PCR) log Miscellaneous Test 10/06/18 10/06/18 10/07/18 09:40 09:40 04:20 WBC 1.1 L* RBC 3.07 L Hgb 9.1 L Hct 27.3 L RDW 20.3 H Plt Count Seg Neuts % (Manual) Lymphocytes % (Manual) Monocytes % (Manual) Eosinophils % (Manual) Basophils % (Manual) Nucleated RBC % Seg Neutrophils # Man 0.7 L Abs Lymphs (Manual) Lymphocytes # (Manual) 0.3 L Basophils # (Manual) PT INR APTT Heparin Anti-Xa Level POC ABG pH POC ABG pCO2 POC ABG pO2 Sodium Potassium Chloride Carbon Dioxide BUN Creatinine Glucose POC Glucose Lactic Acid Calcium Phosphorus Magnesium Iron TIBC Ferritin 1126.0 H AST ALT Total Creatine Kinase Total Protein Albumin Vitamin B12 Folate 6.71 L TSH Free T4 Urine WBC (Auto) Urine Creatinine Urine Chloride Urine Total Protein CSF VDRL Lymph Enumerat CD4/CD8 Absolute CD3 Count % CD4 Cells Absolute CD4 Count % CD8 Cells Absolute CD19 Count T.pallidum Ab (FTA-ABS) HIV-1 RNA PCR copies/ml HIV-1 RNA (PCR) log Miscellaneous Test 10/07/18 10/07/18 10/09/18 04:20 15:38 04:20 WBC 1.1 L* RBC 3.35 L Hgb 9.9 L Hct 30.1 L RDW 21.4 H Plt Count Seg Neuts % (Manual) 19.0 L Lymphocytes % (Manual) 42.0 H Monocytes % (Manual) 18.0 H Eosinophils % (Manual) 15.0 H Basophils % (Manual) 2.0 H Nucleated RBC % Seg Neutrophils # Man 0.2 L Abs Lymphs (Manual) Lymphocytes # (Manual) 0.5 L Basophils # (Manual) PT INR APTT Heparin Anti-Xa Level POC ABG pH 7.516 H POC ABG pCO2 32.1 L POC ABG pO2 Sodium Potassium Chloride Carbon Dioxide BUN Creatinine 0.7 L Glucose POC Glucose Lactic Acid Calcium 7.9 L Phosphorus Magnesium Iron TIBC Ferritin AST ALT Total Creatine Kinase Total Protein 5.5 L Albumin 2.2 L Vitamin B12 Folate TSH Free T4 Urine WBC (Auto) Urine Creatinine Urine Chloride Urine Total Protein CSF VDRL Lymph Enumerat CD4/CD8 Absolute CD3 Count % CD4 Cells Absolute CD4 Count % CD8 Cells Absolute CD19 Count T.pallidum Ab (FTA-ABS) HIV-1 RNA PCR copies/ml HIV-1 RNA (PCR) log Miscellaneous Test 10/09/18 10/09/18 10/09/18 04:20 11:48 17:31 WBC RBC Hgb Hct RDW Plt Count Seg Neuts % (Manual) Lymphocytes % (Manual) Monocytes % (Manual) Eosinophils % (Manual) Basophils % (Manual) Nucleated RBC % Seg Neutrophils # Man Abs Lymphs (Manual) Lymphocytes # (Manual) Basophils # (Manual) PT INR APTT Heparin Anti-Xa Level POC ABG pH POC ABG pCO2 POC ABG pO2 Sodium Potassium 5.4 H Chloride Carbon Dioxide 21 L BUN 55 H 72 H Creatinine 3.8 H D 4.5 H Glucose 118 H POC Glucose 124 H Lactic Acid Calcium 8.3 L 8.2 L Phosphorus Magnesium Iron TIBC Ferritin AST ALT Total Creatine Kinase Total Protein Albumin Vitamin B12 Folate TSH Free T4 Urine WBC (Auto) Urine Creatinine Urine Chloride Urine Total Protein CSF VDRL Lymph Enumerat CD4/CD8 Absolute CD3 Count % CD4 Cells Absolute CD4 Count % CD8 Cells Absolute CD19 Count T.pallidum Ab (FTA-ABS) HIV-1 RNA PCR copies/ml HIV-1 RNA (PCR) log Miscellaneous Test 10/10/18 10/10/18 10/10/18 08:09 08:35 10:54 WBC 1.1 L* RBC 3.16 L Hgb 9.6 L Hct 28.8 L RDW 21.2 H Plt Count Seg Neuts % (Manual) 27.0 L Lymphocytes % (Manual) Monocytes % (Manual) 9.0 H Eosinophils % (Manual) 18.0 H Basophils % (Manual) 12.0 H Nucleated RBC % Seg Neutrophils # Man 0.3 L Abs Lymphs (Manual) Lymphocytes # (Manual) 0.3 L Basophils # (Manual) PT 16.0 H INR 1.20 H APTT Heparin Anti-Xa Level POC ABG pH POC ABG pCO2 POC ABG pO2 Sodium Potassium 5.5 H Chloride Carbon Dioxide 20 L BUN 83 H Creatinine 5.5 H Glucose 119 H POC Glucose Lactic Acid Calcium Phosphorus Magnesium Iron TIBC Ferritin AST ALT Total Creatine Kinase Total Protein Albumin Vitamin B12 Folate TSH Free T4 Urine WBC (Auto) Urine Creatinine Urine Chloride Urine Total Protein CSF VDRL Lymph Enumerat CD4/CD8 Absolute CD3 Count % CD4 Cells Absolute CD4 Count % CD8 Cells Absolute CD19 Count T.pallidum Ab (FTA-ABS) HIV-1 RNA PCR copies/ml HIV-1 RNA (PCR) log Miscellaneous Test 10/10/18 10/10/18 10/11/18 Unknown Unknown 05:20 WBC 1.2 L* RBC 2.89 L Hgb 8.7 L Hct 26.0 L RDW 20.1 H Plt Count Seg Neuts % (Manual) Lymphocytes % (Manual) 8.0 L Monocytes % (Manual) 12.0 H Eosinophils % (Manual) 24.0 H Basophils % (Manual) 4.0 H Nucleated RBC % Seg Neutrophils # Man 0.6 L Abs Lymphs (Manual) Lymphocytes # (Manual) 0.1 L Basophils # (Manual) PT INR APTT Heparin Anti-Xa Level POC ABG pH POC ABG pCO2 POC ABG pO2 Sodium Potassium Chloride Carbon Dioxide BUN Creatinine Glucose POC Glucose Lactic Acid Calcium Phosphorus Magnesium Iron TIBC Ferritin AST ALT Total Creatine Kinase Total Protein Albumin Vitamin B12 Folate TSH Free T4 Urine WBC (Auto) Urine Creatinine Urine Chloride Urine Total Protein CSF VDRL Reactive 1:2 H Lymph Enumerat CD4/CD8 Absolute CD3 Count % CD4 Cells Absolute CD4 Count % CD8 Cells Absolute CD19 Count T.pallidum Ab (FTA-ABS) HIV-1 RNA PCR copies/ml HIV-1 RNA (PCR) log Miscellaneous Test Flexitest 1 H 10/11/18 10/11/18 10/11/18 05:20 05:40 05:40 WBC RBC Hgb Hct RDW Plt Count Seg Neuts % (Manual) Lymphocytes % (Manual) Monocytes % (Manual) Eosinophils % (Manual) Basophils % (Manual) Nucleated RBC % Seg Neutrophils # Man Abs Lymphs (Manual) Lymphocytes # (Manual) Basophils # (Manual) PT INR APTT Heparin Anti-Xa Level POC ABG pH POC ABG pCO2 POC ABG pO2 Sodium Potassium Chloride Carbon Dioxide 20 L BUN 102 H Creatinine 6.7 H Glucose POC Glucose Lactic Acid Calcium 8.3 L Phosphorus Magnesium Iron TIBC Ferritin AST ALT Total Creatine Kinase Total Protein Albumin Vitamin B12 Folate TSH Free T4 Urine WBC (Auto) 8.0 H Urine Creatinine 57.5 H Urine Chloride 35.1 L Urine Total Protein 44 H CSF VDRL Lymph Enumerat CD4/CD8 Absolute CD3 Count % CD4 Cells Absolute CD4 Count % CD8 Cells Absolute CD19 Count T.pallidum Ab (FTA-ABS) HIV-1 RNA PCR copies/ml HIV-1 RNA (PCR) log Miscellaneous Test 10/11/18 10/12/18 10/12/18 16:41 03:30 03:30 WBC 0.9 L* RBC 2.78 L Hgb 8.3 L Hct 25.1 L RDW 19.9 H Plt Count Seg Neuts % (Manual) Lymphocytes % (Manual) Monocytes % (Manual) Eosinophils % (Manual) 20.0 H Basophils % (Manual) Nucleated RBC % Seg Neutrophils # Man 0.5 L Abs Lymphs (Manual) Lymphocytes # (Manual) 0.3 L Basophils # (Manual) PT INR APTT Heparin Anti-Xa Level POC ABG pH 7.318 L POC ABG pCO2 POC ABG pO2 Sodium Potassium Chloride Carbon Dioxide 18 L BUN 111 H Creatinine 7.3 H Glucose POC Glucose Lactic Acid Calcium 7.9 L Phosphorus Magnesium Iron TIBC Ferritin AST ALT Total Creatine Kinase Total Protein Albumin Vitamin B12 Folate TSH Free T4 Urine WBC (Auto) Urine Creatinine Urine Chloride Urine Total Protein CSF VDRL Lymph Enumerat CD4/CD8 Absolute CD3 Count % CD4 Cells Absolute CD4 Count % CD8 Cells Absolute CD19 Count T.pallidum Ab (FTA-ABS) HIV-1 RNA PCR copies/ml HIV-1 RNA (PCR) log Miscellaneous Test 10/12/18 10/13/18 10/13/18 13:30 04:00 04:05 WBC 1.0 L* RBC 2.68 L Hgb 8.1 L Hct 24.3 L RDW 19.7 H Plt Count Seg Neuts % (Manual) 36.7 L Lymphocytes % (Manual) Monocytes % (Manual) Eosinophils % (Manual) 16.7 H Basophils % (Manual) 16.7 H Nucleated RBC % Seg Neutrophils # Man 0.4 L Abs Lymphs (Manual) Lymphocytes # (Manual) 0.2 L Basophils # (Manual) 0.2 H PT INR APTT Heparin Anti-Xa Level POC ABG pH 7.336 L POC ABG pCO2 31.5 L POC ABG pO2 122 H Sodium Potassium Chloride Carbon Dioxide 17 L BUN 118 H Creatinine 7.8 H Glucose 102 H POC Glucose Lactic Acid Calcium 7.8 L Phosphorus Magnesium Iron TIBC Ferritin AST ALT Total Creatine Kinase Total Protein Albumin Vitamin B12 Folate TSH Free T4 Urine WBC (Auto) Urine Creatinine Urine Chloride Urine Total Protein CSF VDRL Lymph Enumerat CD4/CD8 Absolute CD3 Count % CD4 Cells Absolute CD4 Count % CD8 Cells Absolute CD19 Count T.pallidum Ab (FTA-ABS) HIV-1 RNA PCR copies/ml HIV-1 RNA (PCR) log Miscellaneous Test 10/13/18 10/14/18 10/14/18 18:44 00:01 05:20 WBC RBC Hgb Hct RDW Plt Count Seg Neuts % (Manual) Lymphocytes % (Manual) Monocytes % (Manual) Eosinophils % (Manual) Basophils % (Manual) Nucleated RBC % Seg Neutrophils # Man Abs Lymphs (Manual) Lymphocytes # (Manual) Basophils # (Manual) PT INR APTT Heparin Anti-Xa Level POC ABG pH POC ABG pCO2 POC ABG pO2 Sodium Potassium Chloride Carbon Dioxide BUN Creatinine Glucose POC Glucose 141 H 134 H 171 H Lactic Acid Calcium Phosphorus Magnesium Iron TIBC Ferritin AST ALT Total Creatine Kinase Total Protein Albumin Vitamin B12 Folate TSH Free T4 Urine WBC (Auto) Urine Creatinine Urine Chloride Urine Total Protein CSF VDRL Lymph Enumerat CD4/CD8 Absolute CD3 Count % CD4 Cells Absolute CD4 Count % CD8 Cells Absolute CD19 Count T.pallidum Ab (FTA-ABS) HIV-1 RNA PCR copies/ml HIV-1 RNA (PCR) log Miscellaneous Test 10/14/18 10/14/18 10/14/18 09:39 09:40 11:37 WBC RBC Hgb Hct RDW Plt Count Seg Neuts % (Manual) Lymphocytes % (Manual) Monocytes % (Manual) Eosinophils % (Manual) Basophils % (Manual) Nucleated RBC % Seg Neutrophils # Man Abs Lymphs (Manual) Lymphocytes # (Manual) Basophils # (Manual) PT INR APTT Heparin Anti-Xa Level POC ABG pH POC ABG pCO2 POC ABG pO2 Sodium 147 H Potassium 3.4 L Chloride 108.1 H Carbon Dioxide 16 L BUN 124 H Creatinine 6.7 H Glucose 144 H POC Glucose 164 H Lactic Acid Calcium 7.8 L Phosphorus 8.50 H Magnesium Iron TIBC Ferritin AST ALT Total Creatine Kinase Total Protein Albumin Vitamin B12 Folate TSH Free T4 Urine WBC (Auto) Urine Creatinine Urine Chloride Urine Total Protein CSF VDRL Lymph Enumerat CD4/CD8 Absolute CD3 Count % CD4 Cells Absolute CD4 Count % CD8 Cells Absolute CD19 Count T.pallidum Ab (FTA-ABS) HIV-1 RNA PCR copies/ml HIV-1 RNA (PCR) log Miscellaneous Test 10/14/18 10/14/18 10/15/18 Unknown Unknown 00:05 WBC 0.5 L* RBC 2.80 L Hgb 8.2 L Hct 25.2 L RDW 19.7 H Plt Count Seg Neuts % (Manual) Lymphocytes % (Manual) 10.0 L Monocytes % (Manual) Eosinophils % (Manual) 10.0 H Basophils % (Manual) Nucleated RBC % Seg Neutrophils # Man 0.4 L Abs Lymphs (Manual) Lymphocytes # (Manual) 0.1 L Basophils # (Manual) PT INR APTT Heparin Anti-Xa Level POC ABG pH POC ABG pCO2 POC ABG pO2 Sodium Potassium Chloride Carbon Dioxide 13 L BUN 126 H Creatinine 7.7 H Glucose 153 H POC Glucose 190 H Lactic Acid Calcium 7.8 L Phosphorus Magnesium Iron TIBC Ferritin AST ALT Total Creatine Kinase Total Protein Albumin Vitamin B12 Folate TSH Free T4 Urine WBC (Auto) Urine Creatinine Urine Chloride Urine Total Protein CSF VDRL Lymph Enumerat CD4/CD8 Absolute CD3 Count % CD4 Cells Absolute CD4 Count % CD8 Cells Absolute CD19 Count T.pallidum Ab (FTA-ABS) HIV-1 RNA PCR copies/ml HIV-1 RNA (PCR) log Miscellaneous Test 10/15/18 10/15/18 10/15/18 04:15 04:15 05:03 WBC 0.8 L* RBC 2.73 L Hgb 8.2 L Hct 24.4 L RDW 18.8 H Plt Count Seg Neuts % (Manual) Lymphocytes % (Manual) Monocytes % (Manual) Eosinophils % (Manual) Basophils % (Manual) Nucleated RBC % Seg Neutrophils # Man Abs Lymphs (Manual) Lymphocytes # (Manual) Basophils # (Manual) PT INR APTT Heparin Anti-Xa Level POC ABG pH POC ABG pCO2 POC ABG pO2 Sodium 148 H Potassium 2.9 L* Chloride 108.5 H Carbon Dioxide 17 L BUN 127 H Creatinine 6.1 H Glucose 154 H POC Glucose 170 H Lactic Acid Calcium 7.7 L Phosphorus Magnesium Iron TIBC Ferritin AST ALT Total Creatine Kinase Total Protein 6.0 L Albumin 2.3 L Vitamin B12 Folate TSH Free T4 Urine WBC (Auto) Urine Creatinine Urine Chloride Urine Total Protein CSF VDRL Lymph Enumerat CD4/CD8 Absolute CD3 Count % CD4 Cells Absolute CD4 Count % CD8 Cells Absolute CD19 Count T.pallidum Ab (FTA-ABS) HIV-1 RNA PCR copies/ml HIV-1 RNA (PCR) log Miscellaneous Test 10/15/18 10/15/18 10/15/18 12:23 17:42 17:49 WBC RBC Hgb Hct RDW Plt Count Seg Neuts % (Manual) Lymphocytes % (Manual) Monocytes % (Manual) Eosinophils % (Manual) Basophils % (Manual) Nucleated RBC % Seg Neutrophils # Man Abs Lymphs (Manual) Lymphocytes # (Manual) Basophils # (Manual) PT INR APTT Heparin Anti-Xa Level POC ABG pH POC ABG pCO2 POC ABG pO2 Sodium 146 H Potassium 3.0 L Chloride 109.4 H Carbon Dioxide 16 L BUN 124 H Creatinine 5.6 H Glucose 162 H POC Glucose 180 H 173 H Lactic Acid Calcium 7.5 L Phosphorus Magnesium Iron TIBC Ferritin AST ALT Total Creatine Kinase Total Protein Albumin Vitamin B12 Folate TSH Free T4 Urine WBC (Auto) Urine Creatinine Urine Chloride Urine Total Protein CSF VDRL Lymph Enumerat CD4/CD8 Absolute CD3 Count % CD4 Cells Absolute CD4 Count % CD8 Cells Absolute CD19 Count T.pallidum Ab (FTA-ABS) HIV-1 RNA PCR copies/ml HIV-1 RNA (PCR) log Miscellaneous Test 10/15/18 10/16/18 10/16/18 23:56 05:37 07:50 WBC 1.1 L* RBC 2.70 L Hgb 8.0 L Hct 24.4 L RDW 18.9 H Plt Count Seg Neuts % (Manual) Lymphocytes % (Manual) Monocytes % (Manual) 8.0 H Eosinophils % (Manual) Basophils % (Manual) Nucleated RBC % Seg Neutrophils # Man 0.7 L Abs Lymphs (Manual) Lymphocytes # (Manual) 0.2 L Basophils # (Manual) PT INR APTT Heparin Anti-Xa Level POC ABG pH POC ABG pCO2 POC ABG pO2 Sodium Potassium Chloride Carbon Dioxide BUN Creatinine Glucose POC Glucose 164 H 152 H Lactic Acid Calcium Phosphorus Magnesium Iron TIBC Ferritin AST ALT Total Creatine Kinase Total Protein Albumin Vitamin B12 Folate TSH Free T4 Urine WBC (Auto) Urine Creatinine Urine Chloride Urine Total Protein CSF VDRL Lymph Enumerat CD4/CD8 Absolute CD3 Count % CD4 Cells Absolute CD4 Count % CD8 Cells Absolute CD19 Count T.pallidum Ab (FTA-ABS) HIV-1 RNA PCR copies/ml HIV-1 RNA (PCR) log Miscellaneous Test 10/16/18 10/16/18 10/16/18 07:50 12:35 18:00 WBC RBC Hgb Hct RDW Plt Count Seg Neuts % (Manual) Lymphocytes % (Manual) Monocytes % (Manual) Eosinophils % (Manual) Basophils % (Manual) Nucleated RBC % Seg Neutrophils # Man Abs Lymphs (Manual) Lymphocytes # (Manual) Basophils # (Manual) PT INR APTT Heparin Anti-Xa Level POC ABG pH POC ABG pCO2 POC ABG pO2 Sodium 147 H Potassium 3.0 L Chloride Carbon Dioxide 15 L BUN 143 H Creatinine 6.2 H Glucose 182 H POC Glucose 122 H 160 H Lactic Acid Calcium 8.1 L Phosphorus Magnesium Iron TIBC Ferritin AST ALT Total Creatine Kinase Total Protein Albumin Vitamin B12 Folate TSH Free T4 Urine WBC (Auto) Urine Creatinine Urine Chloride Urine Total Protein CSF VDRL Lymph Enumerat CD4/CD8 Absolute CD3 Count % CD4 Cells Absolute CD4 Count % CD8 Cells Absolute CD19 Count T.pallidum Ab (FTA-ABS) HIV-1 RNA PCR copies/ml HIV-1 RNA (PCR) log Miscellaneous Test 10/16/18 10/17/18 10/17/18 23:32 05:03 11:32 WBC RBC Hgb Hct RDW Plt Count Seg Neuts % (Manual) Lymphocytes % (Manual) Monocytes % (Manual) Eosinophils % (Manual) Basophils % (Manual) Nucleated RBC % Seg Neutrophils # Man Abs Lymphs (Manual) Lymphocytes # (Manual) Basophils # (Manual) PT INR APTT Heparin Anti-Xa Level POC ABG pH POC ABG pCO2 POC ABG pO2 Sodium Potassium Chloride Carbon Dioxide BUN Creatinine Glucose POC Glucose 131 H 112 H 149 H Lactic Acid Calcium Phosphorus Magnesium Iron TIBC Ferritin AST ALT Total Creatine Kinase Total Protein Albumin Vitamin B12 Folate TSH Free T4 Urine WBC (Auto) Urine Creatinine Urine Chloride Urine Total Protein CSF VDRL Lymph Enumerat CD4/CD8 Absolute CD3 Count % CD4 Cells Absolute CD4 Count % CD8 Cells Absolute CD19 Count T.pallidum Ab (FTA-ABS) HIV-1 RNA PCR copies/ml HIV-1 RNA (PCR) log Miscellaneous Test 10/19/18 10/19/18 10/19/18 04:00 06:15 14:54 WBC 0.7 L* 0.7 L* RBC 2.77 L 2.77 L Hgb 7.9 L 8.3 L Hct 24.7 L 24.6 L RDW 19.4 H 19.2 H Plt Count 112 L 105 L Seg Neuts % (Manual) Lymphocytes % (Manual) Monocytes % (Manual) 17.0 H 16.0 H Eosinophils % (Manual) 6.0 H Basophils % (Manual) 2.0 H Nucleated RBC % Seg Neutrophils # Man 0.3 L 0.3 L Abs Lymphs (Manual) Lymphocytes # (Manual) 0.2 L 0.2 L Basophils # (Manual) PT INR APTT Heparin Anti-Xa Level POC ABG pH POC ABG pCO2 POC ABG pO2 Sodium Potassium 2.9 L* Chloride Carbon Dioxide 19 L BUN 107 H Creatinine 5.9 H Glucose POC Glucose Lactic Acid Calcium 7.9 L Phosphorus Magnesium Iron TIBC Ferritin AST 54 H ALT Total Creatine Kinase Total Protein 5.7 L Albumin 2.5 L Vitamin B12 Folate TSH Free T4 Urine WBC (Auto) Urine Creatinine Urine Chloride Urine Total Protein CSF VDRL Lymph Enumerat CD4/CD8 Absolute CD3 Count % CD4 Cells Absolute CD4 Count % CD8 Cells Absolute CD19 Count T.pallidum Ab (FTA-ABS) HIV-1 RNA PCR copies/ml HIV-1 RNA (PCR) log Miscellaneous Test 10/20/18 10/20/18 10/21/18 05:34 12:17 06:00 WBC RBC Hgb Hct RDW Plt Count Seg Neuts % (Manual) Lymphocytes % (Manual) Monocytes % (Manual) Eosinophils % (Manual) Basophils % (Manual) Nucleated RBC % Seg Neutrophils # Man Abs Lymphs (Manual) Lymphocytes # (Manual) Basophils # (Manual) PT INR APTT Heparin Anti-Xa Level POC ABG pH POC ABG pCO2 33.3 L POC ABG pO2 107 H Sodium Potassium 3.0 L Chloride Carbon Dioxide 20 L BUN 94 H Creatinine 6.1 H Glucose POC Glucose 113 H Lactic Acid Calcium 7.9 L Phosphorus Magnesium Iron TIBC Ferritin AST ALT Total Creatine Kinase Total Protein Albumin Vitamin B12 Folate TSH Free T4 Urine WBC (Auto) Urine Creatinine Urine Chloride Urine Total Protein CSF VDRL Lymph Enumerat CD4/CD8 Absolute CD3 Count % CD4 Cells Absolute CD4 Count % CD8 Cells Absolute CD19 Count T.pallidum Ab (FTA-ABS) HIV-1 RNA PCR copies/ml HIV-1 RNA (PCR) log Miscellaneous Test Allied health notes reviewed: nursing
--- NOTE | 2018-10-23 14:21 | Hem/Onc Progress Note ---
Assessment and Plan 1. Leukopenia. ANC is 0.5. Neutropenic precaution is practical. 2. Anemia. We will investigate. 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 HAART has been started. At this time, there is no fever. 3. Human immunodeficiency virus, on HAART. 4. 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 5. Intubated. 6. On antibiotics for pneumonia. 7. History of ____ that is improved. 8. Looks at you, but does not communicate. 9. History of oral candidiasis. 10. Mention of giardiasis. 11. Encephalopathy. 12. RVR with atrial fibrillation. I will follow the patient during inpatient stay. At this time, his cytopenia is likely secondary to the HIV or the CMV. I will discuss with ID team to see if G-CSF support is an option. 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 10/12 - trach - peg not done - as family deciding the GCSF - did not change the WBC 10/13 - wbc 1 - opens eye - non communicative 10/14 - pt moves rt arm - eyes open still on vent - as per info - family is thinking about PEG - trach - they have not consented granix trial for low wbc 10/15 - gcsf trial - poor prognosis due to performance status 10/16 - dialysis cath wbc low - gCSF 10/17 - wbc still low - poor prognosis - ct folic acid for anemia 10/18 - not much improvement - last cbc on 10/16 10/19 - wbc low - moving left toes 10/20 - low counts may be HIV or meds related 10/21 - as per rN - next week trach/? PEG planned moves rt hand and left toes 10/22 - as per RN - PEG planned next week pt awake - moves left toes - restrain 10/23 - d/w dr Young - repeat CBC now to see plt moves rt arm and left leg on vent - Patient Problems (1) Neutropenia Current Visit: Yes Status: Acute Subjective Date of service: 10/23/18 Principal diagnosis: low wbc - low plt Interval history: pt on vent - moves rt arm Objective - Exam Narrative Exam: on vent - Constitutional Vitals: Last Vital Signs Temp 98.6 F 10/23/18 09:00 Pulse 90 10/23/18 12:00 Resp 18 10/23/18 12:00 BP 112/58 10/23/18 12:00 Pulse Ox 100 10/23/18 12:00 General appearance: no acute distress Performance status: 4-completely disabled - EENT ENT: other (intubated) Lymph node exam: negative cervical - Respiratory Respiratory effort: Positive: normal Respiratory: bilateral: CTA (anteriorly) - Cardiovascular Heart Sounds: Present: S1 & S2 Extremity abnormal: edema - Gastrointestinal General gastrointestinal: Present: soft, non-tender Rectal Exam: deferred - Genitourinary Male genitourinary: Present: deferred - Integumentary Integumentary: warm - Neurologic Neurologic: other (rt arm and left toes moving) Medications & Allergies - Medications Allergies/Adverse Reactions: Allergies No Known Allergies Allergy (Unverified 09/11/18 17:50) Home Medications: Home Medications Medication Instructions Recorded Confirmed Last Taken Type No Known Home Medications [No 10/02/18 10/02/18 Unknown History Reported Home Medications] Active Medications: Generic Name Dose Route Start Last Admin Trade Name Freq PRN Reason Stop Dose Admin Acetaminophen 650 mg 09/11/18 19:30 10/09/18 16:32 Tylenol PO 650 mg Q4H PRN Administration Pain MILD(1-3)/Fever >100.5/RIVERA Acetaminophen 650 mg 09/21/18 07:39 10/07/18 21:15 Tylenol [place] 650 mg Q4H PRN Administration Fever >101 Albuterol 2.5 mg 09/20/18 20:00 10/23/18 09:10 Proventil IH 2.5 mg Q6HRT GIA Administration Amiodarone HCl 200 mg 10/22/18 10:00 10/23/18 10:48 Cordarone PO 200 mg DAILY GIA Administration Lipase/Protease/Amylase 1 each 09/30/18 12:01 Pancrealen Gibbs 10,500 Unit FEEDTUBE PRN PRN For Clogged Feeding Tube Atovaquone 750 mg 09/21/18 10:00 10/23/18 09:11 Mepron PO 750 mg BID GIA Administration Azithromycin 1,200 mg 10/18/18 10:00 10/18/18 10:35 Zithromax PO 1,200 mg Tu GIA Administration Darunavir 800 mg 10/21/18 12:00 10/23/18 09:09 Prezista PO 800 mg QDAY GIA Administration Emtricitabine 200 mg 10/13/18 10:00 10/21/18 14:29 Emtriva PO 200 mg Q96H GIA Administration Famotidine 20 mg 10/10/18 10:00 10/23/18 09:05 Pepcid PO 20 mg DAILY GIA Administration Fluconazole 200 mg 10/05/18 12:00 10/23/18 09:11 Diflucan PO 200 mg QDAY GIA Administration Folic Acid 1 mg 10/07/18 10:00 10/23/18 09:08 Folvite PO 1 mg QDAY GIA Administration Glycopyrrolate 2 mg 10/07/18 18:00 10/23/18 11:47 Robinul PO 2 mg Q6HR GIA Administration Hydrophilic Ointment 1 applic 09/21/18 01:46 09/22/18 03:46 Vaseline Lip Therapy TP 1 applic Q2HR PRN Administration Dry Lips Ganciclovir Sodium 150 mg/ 250 mls @ 100 mls/hr 10/12/18 10:00 10/21/18 14:23 Sodium Chloride IV 100 mls/hr MoWeFr GIA Administration Sodium Chloride 100 mls @ 999 mls/hr 10/17/18 10:39 Nacl 0.9% IV CHERYL PRN Hypotension Levetiracetam 750 mg 10/12/18 22:00 10/23/18 09:08 Keppra PO 750 mg BID GIA Administration Levothyroxine Sodium 25 mcg 09/19/18 06:00 10/23/18 06:55 Synthroid PO 25 mcg DAILY@0600 GIA Administration Metoprolol Tartrate 12.5 mg 10/10/18 13:00 10/23/18 09:06 Lopressor PO 12.5 mg BID GIA Administration Morphine Sulfate 2 mg 10/20/18 18:37 Morphine IV Q4H PRN Pain, Moderate (4-6) Multi-Ingred Cream/Lotion/Oil/Oint 1 applic 02/06/19 01:46 Artificial Tears Ophth Oint OU Q4HR PRN Dry Eye(s) Ondansetron HCl 4 mg 09/11/18 19:30 Zofran IV Q8H PRN Nausea And Vomiting Ritonavir 100 mg 10/21/18 12:00 10/23/18 09:10 Norvir PO 100 mg QDAY GIA Administration Scopolamine 1 each 09/18/18 18:00 10/21/18 18:22 Transderm-Scop TD 1 each Q3D GIA Administration Simple Syrup 15 ml 10/15/18 10:45 Simple Syrup FEEDTUBE PRN PRN Hypoglycemia Simple Syrup 30 ml 10/15/18 10:45 Simple Syrup FEEDTUBE PRN PRN Hypoglycemia Sodium Bicarbonate 325 mg 10/15/18 10:45 Sodium Bicarbonate FEEDTUBE PRN PRN For Clogged Feeding Tube Sodium Chloride 10 ml 09/11/18 22:00 10/23/18 09:13 Sodium Chloride Flush Syringe 10 Ml IV 10 ml BID GIA Administration Sodium Chloride 10 ml 09/11/18 19:30 10/21/18 18:16 Sodium Chloride Flush Syringe 10 Ml IV 10 ml PRN PRN Administration LINE FLUSH
[2018-10-23 15:41] LABS: Hematocrit 21.3 % (35.5-45.6); Hemoglobin 7.1 gm/dl (11.8-15.2); Mean Corpuscular HGB Conc 33 % (32-34); Mean Corpuscular Volume 91 fl (84-94); Platelet Count 140 K/mm3 (140-440); Red Blood Count 2.33 M/mm3 (3.65-5.03)
[2018-10-23 15:50] LABS: Red Cell Distribution Width 20.1 % (13.2-15.2)
[2018-10-23 16:45] LABS: Eosinophils % (Manual) 0 % (0.0-4.3); Total Cells Counted 100
[2018-10-23 16:46] LABS: Hypochromasia 1+
[2018-10-23 16:47] LABS: Anisocytosis Few; Ovalocytes 2+; Platelet Estimate Consistent w Auto; Poikilocytosis 1+
[2018-10-24] MEDS: ROBINUL PO SCH ×4 (00:10→22:57)
[2018-10-24] MEDS: PROVENTIL IH SCH ×4 (01:31→19:41)
[2018-10-24 05:27] LABS: Hematocrit 20.7 % (35.5-45.6); Hemoglobin 6.8 gm/dl (11.8-15.2); Mean Corpuscular HGB Conc 33 % (32-34); Mean Corpuscular Volume 92 fl (84-94); Platelet Count 147 K/mm3 (140-440); Red Blood Count 2.24 M/mm3 (3.65-5.03)
[2018-10-24 05:54] LABS: Red Cell Distribution Width 20.1 % (13.2-15.2)
[2018-10-24] MEDS: SYNTHROID PO SCH (06:26)
[2018-10-24 06:51] LABS: Anisocytosis 1+; Basophils % (Manual) 0 % (0.0-1.8); Eosinophils % (Manual) 0 % (0.0-4.3); Hypochromasia 1+; Ovalocytes 1+; Total Cells Counted 50
--- NOTE | 2018-10-24 08:27 | Hem/Onc Progress Note ---
Assessment and Plan 1. Leukopenia. ANC is 0.5. Neutropenic precaution is practical. 2. Anemia. We will investigate. 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 HAART has been started. At this time, there is no fever. 3. Human immunodeficiency virus, on HAART. 4. 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 5. Intubated. 6. On antibiotics for pneumonia. 7. History of ____ that is improved. 8. Looks at you, but does not communicate. 9. History of oral candidiasis. 10. Mention of giardiasis. 11. Encephalopathy. 12. RVR with atrial fibrillation. I will follow the patient during inpatient stay. At this time, his cytopenia is likely secondary to the HIV or the CMV. I will discuss with ID team to see if G-CSF support is an option. 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 10/12 - trach - peg not done - as family deciding the GCSF - did not change the WBC 10/13 - wbc 1 - opens eye - non communicative 10/14 - pt moves rt arm - eyes open still on vent - as per info - family is thinking about PEG - trach - they have not consented granix trial for low wbc 10/15 - gcsf trial - poor prognosis due to performance status 10/16 - dialysis cath wbc low - gCSF 10/17 - wbc still low - poor prognosis - ct folic acid for anemia 10/18 - not much improvement - last cbc on 10/16 10/19 - wbc low - moving left toes 10/20 - low counts may be HIV or meds related 10/21 - as per rN - next week trach/? PEG planned moves rt hand and left toes 10/22 - as per RN - PEG planned next week pt awake - moves left toes - restrain 10/23 - d/w dr Young - repeat CBC now to see plt moves rt arm and left leg on vent - plt better - anemia - low wbc will look into transfusion support if falls more iv iron - Patient Problems (1) Neutropenia Current Visit: Yes Status: Acute Subjective Date of service: 10/24/18 Principal diagnosis: low wbc Interval history: pt moves st arm and left toes Objective - Constitutional Vitals: Last Vital Signs Temp 97.9 F 10/24/18 08:00 Pulse 94 H 10/24/18 08:09 Resp 18 10/24/18 08:09 BP 137/74 10/24/18 08:00 Pulse Ox 100 10/24/18 08:00 General appearance: no acute distress Performance status: 4-completely disabled - EENT ENT: other (on vent) - Respiratory Respiratory effort: Positive: other (intubated) Respiratory: bilateral: diminished - Cardiovascular Heart Sounds: Present: S1 & S2 Extremity abnormal: edema - Gastrointestinal General gastrointestinal: Present: soft - Genitourinary Male genitourinary: Present: deferred - Integumentary Integumentary: warm - Neurologic Neurologic: other (moves rt arm and let toes) - Labs Lab Results: Laboratory Results - last 24 hr 10/23/18 10/24/18 10/24/18 14:34 04:50 04:50 WBC 0.9 L* 0.9 L* RBC 2.33 L 2.24 L Hgb 7.1 L 6.8 L Hct 21.3 L 20.7 L MCV 91 92 MCH 30 31 MCHC 33 33 RDW 20.1 H 20.1 H Plt Count 140 147 Add Manual Diff Complete Complete Total Counted 100 50 Seg Neuts % (Manual) 63.0 56.0 Band Neutrophils % 1.0 0 Lymphocytes % (Manual) 17.0 28.0 Reactive Lymphs % (Man) 0 0 Monocytes % (Manual) 18.0 H 16.0 H Eosinophils % (Manual) 0 0 Basophils % (Manual) 1.0 0 Metamyelocytes % 0 0 Myelocytes % 0 0 Promyelocytes % 0 0 Blast Cells % 0 0 Nucleated RBC % Not Reportable Not Reportable Seg Neutrophils # Man 0.6 L 0.5 L Band Neutrophils # 0.0 0.0 Lymphocytes # (Manual) 0.2 L 0.3 L Abs React Lymphs (Man) 0.0 0.0 Monocytes # (Manual) 0.2 0.1 Eosinophils # (Manual) 0.0 0.0 Basophils # (Manual) 0.0 0.0 Metamyelocytes # 0.0 0.0 Myelocytes # 0.0 0.0 Promyelocytes # 0.0 0.0 Blast Cells # 0.0 0.0 WBC Morphology Not Reportable Not Reportable Hypersegmented Neuts Not Reportable Not Reportable Hyposegmented Neuts Not Reportable Not Reportable Hypogranular Neuts Not Reportable Not Reportable Smudge Cells Not Reportable Not Reportable Toxic Granulation Not Reportable Not Reportable Toxic Vacuolation Not Reportable Not Reportable Dohle Bodies Not Reportable Not Reportable Pelger-Huet Anomaly Not Reportable Not Reportable Giovanna Rods Not Reportable Not Reportable Platelet Estimate Consistent w auto Appears normal Clumped Platelets Not Reportable Not Reportable Plt Clumps, EDTA Not Reportable Not Reportable Large Platelets Not Reportable Not Reportable Giant Platelets Not Reportable Not Reportable Platelet Satelliting Not Reportable Not Reportable Plt Morphology Comment Not Reportable Not Reportable RBC Morphology Not Reportable Not Reportable Dimorphic RBCs Not Reportable Not Reportable Polychromasia Not Reportable Not Reportable Hypochromasia 1+ 1+ Poikilocytosis 1+ Not Reportable Anisocytosis Few 1+ Microcytosis Not Reportable Not Reportable Macrocytosis Not Reportable Not Reportable Spherocytes Not Reportable Not Reportable Pappenheimer Bodies Not Reportable Not Reportable Sickle Cells Not Reportable Not Reportable Target Cells Not Reportable Not Reportable Tear Drop Cells Not Reportable Not Reportable Ovalocytes 2+ 1+ Helmet Cells Not Reportable Not Reportable [place] Bodies Not Reportable Not Reportable [place] Rings Not Reportable Not Reportable Dioni Cells Not Reportable Not Reportable Bite Cells Not Reportable Not Reportable Crenated Cell Not Reportable Not Reportable Elliptocytes Not Reportable Not Reportable Acanthocytes (Spur) Not Reportable Not Reportable Rouleaux Not Reportable Not Reportable Hemoglobin C Crystals Not Reportable Not Reportable Schistocytes Not Reportable Not Reportable Malaria parasites Not Reportable Not Reportable Kieran Bodies Not Reportable Not Reportable Hem Pathologist Commnt No No Sodium 142 Potassium 3.0 L Chloride 101.6 Carbon Dioxide 19 L Anion Gap 24 BUN 94 H Creatinine 7.3 H Estimated GFR 11 BUN/Creatinine Ratio 13 Glucose 94 Calcium 8.0 L Medications & Allergies - Medications Allergies/Adverse Reactions: Allergies No Known Allergies Allergy (Unverified 09/11/18 17:50) Home Medications: Home Medications Medication Instructions Recorded Confirmed Last Taken Type No Known Home Medications [No 10/02/18 10/02/18 Unknown History Reported Home Medications] Active Medications: Generic Name Dose Route Start Last Admin Trade Name Freq PRN Reason Stop Dose Admin Acetaminophen 650 mg 09/11/18 19:30 10/09/18 16:32 Tylenol PO 650 mg Q4H PRN Administration Pain MILD(1-3)/Fever >100.5/RIVERA Acetaminophen 650 mg 09/21/18 07:39 10/07/18 21:15 Tylenol [place] 650 mg Q4H PRN Administration Fever >101 Albuterol 2.5 mg 09/20/18 20:00 10/24/18 07:52 Proventil IH 2.5 mg Q6HRT GIA Administration Amiodarone HCl 200 mg 10/22/18 10:00 10/23/18 10:48 Cordarone PO 200 mg DAILY GIA Administration Lipase/Protease/Amylase 1 each 09/30/18 12:01 Pancreazkandice Gibbs 10,500 Unit FEEDTUBE PRN PRN For Clogged Feeding Tube Atovaquone 750 mg 09/21/18 10:00 10/23/18 21:31 Mepron PO 750 mg BID GIA Administration Azithromycin 1,200 mg 10/18/18 10:00 10/18/18 10:35 Zithromax PO 1,200 mg Tu GIA Administration Darunavir 800 mg 10/21/18 12:00 10/23/18 09:09 Prezista PO 800 mg QDAY GIA Administration Emtricitabine 200 mg 10/13/18 10:00 10/21/18 14:29 Emtriva PO 200 mg Q96H GIA Administration Famotidine 20 mg 10/10/18 10:00 10/23/18 09:05 Pepcid PO 20 mg DAILY GIA Administration Fluconazole 200 mg 10/05/18 12:00 10/23/18 09:11 Diflucan PO 200 mg QDAY GIA Administration Folic Acid 1 mg 10/07/18 10:00 10/23/18 09:08 Folvite PO 1 mg QDAY GIA Administration Glycopyrrolate 2 mg 10/07/18 18:00 10/24/18 06:26 Robinul PO 2 mg Q6HR GIA Administration Hydrophilic Ointment 1 applic 09/21/18 01:46 09/22/18 03:46 Vaseline Lip Therapy TP 1 applic Q2HR PRN Administration Dry Lips Ganciclovir Sodium 150 mg/ 250 mls @ 100 mls/hr 10/12/18 10:00 10/21/18 14:23 Sodium Chloride IV 100 mls/hr MoWeFr GIA Administration Sodium Chloride 100 mls @ 999 mls/hr 10/17/18 10:39 Nacl 0.9% IV CHERYL PRN Hypotension Levetiracetam 750 mg 10/12/18 22:00 10/23/18 21:31 Keppra PO 750 mg BID GIA Administration Levothyroxine Sodium 25 mcg 09/19/18 06:00 10/24/18 06:26 Synthroid PO 25 mcg DAILY@0600 GIA Administration Metoprolol Tartrate 12.5 mg 10/10/18 13:00 10/23/18 21:30 Lopressor PO 12.5 mg BID GIA Administration Morphine Sulfate 2 mg 10/20/18 18:37 Morphine IV Q4H PRN Pain, Moderate (4-6) Multi-Ingred Cream/Lotion/Oil/Oint 1 applic 09/21/18 01:46 Artificial Tears Ophth Oint OU Q4HR PRN Dry Eye(s) Ondansetron HCl 4 mg 09/11/18 19:30 Zofran IV Q8H PRN Nausea And Vomiting Ritonavir 100 mg 10/21/18 12:00 10/23/18 09:10 Norvir PO 100 mg QDAY GIA Administration Scopolamine 1 each 09/18/18 18:00 10/21/18 18:22 Transderm-Scop TD 1 each Q3D GIA Administration Simple Syrup 15 ml 10/15/18 10:45 Simple Syrup FEEDTUBE PRN PRN Hypoglycemia Simple Syrup 30 ml 10/15/18 10:45 Simple Syrup FEEDTUBE PRN PRN Hypoglycemia Sodium Bicarbonate 325 mg 10/15/18 10:45 Sodium Bicarbonate FEEDTUBE PRN PRN For Clogged Feeding Tube Sodium Chloride 10 ml 09/11/18 22:00 10/23/18 21:31 Sodium Chloride Flush Syringe 10 Ml IV 10 ml BID GIA Administration Sodium Chloride 10 ml 01/27/19 19:30 10/21/18 18:16 Sodium Chloride Flush Syringe 10 Ml IV 10 ml PRN PRN Administration LINE FLUSH
--- NOTE | 2018-10-24 08:45 | Progress Note ---
Assessment and Plan - Patient Problems (1) Acute kidney failure with tubular necrosis Current Visit: Yes Status: Acute Plan to address problem: Acute tubular necrosis secondary to sepsis. Patient is now on hemodialysis 3 times a week. Continue to monitor for signs of renal recovery (2) Encephalopathy Current Visit: Yes Status: Acute Plan to address problem: Possibly related to neurosyphilis and/or disseminated CMV. Continue treatment for both per the infectious disease. (3) Acute respiratory failure with hypoxia Current Visit: Yes Status: Acute Plan to address problem: Continue ventilatory support per Pulmonary (4) AIDS Current Visit: Yes Status: Suspected Plan to address problem: Being managed by infectious disease (5) Pancytopenia Current Visit: Yes Status: Acute Plan to address problem: HIV-related and/or disseminated CMV (6) Sepsis Current Visit: Yes Status: Acute Plan to address problem: Continue AB per ID. 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 Improved. Follow-up liver function test (8) Hypokalemia Current Visit: Yes Status: Acute Plan to address problem: Dialyze on a 4K bath and follow-up potassium Subjective Date of service: 10/24/18 Principal diagnosis: low wbc - low plt Interval history: Patient seen lying in bed. Intubated and on ventilator. Opens eyes but not following commands. Objective - Exam Narrative Exam: Young -[place] male lying in bed intubated and on ventilator HEENT: NCAT, ETT intact Neck: Supple, no venous distention CVS: S1S2 RRR with no murmur, rub or gallop Chest: Coarse breath sounds Abdomen: Protuberant, soft, nontender, no organomegaly, bowel sounds are present Extremities: 2+ edema thighs Genitourinary deferred Neuro: Intubated on ventilator, eyes open but not following commands - Vital Signs Vital signs: Vital Signs - 12hr 10/23/18 10/23/18 10/23/18 21:00 21:30 22:00 Temperature 100.3 F H Pulse Rate 99 H 100 H 98 H Pulse Rate [ Bases] Pulse Rate [ From Monitor] Pulse Rate [ Throughout] Respiratory 19 12 Rate Respiratory Rate [Bases] Respiratory Rate [ Throughout] Blood Pressure 136/72 120/69 122/65 O2 Sat by Pulse 96 97 Oximetry 10/23/18 10/23/18 10/23/18 23:00 23:04 23:47 Temperature Pulse Rate 92 H 91 H 91 H Pulse Rate [ Bases] Pulse Rate [ From Monitor] Pulse Rate [ Throughout] Respiratory 21 20 Rate Respiratory Rate [Bases] Respiratory Rate [ Throughout] Blood Pressure 129/72 129/72 118/68 O2 Sat by Pulse 98 99 100 Oximetry 10/24/18 10/24/18 10/24/18 00:00 01:00 01:32 Temperature 99.5 F Pulse Rate 93 H 93 H Pulse Rate [ Bases] Pulse Rate [ 95 H From Monitor] Pulse Rate [ 88 Throughout] Respiratory 17 23 Rate Respiratory Rate [Bases] Respiratory 21 Rate [ Throughout] Blood Pressure 127/73 127/73 O2 Sat by Pulse 97 100 Oximetry 10/24/18 10/24/18 10/24/18 02:00 03:00 04:00 Temperature Pulse Rate 87 89 84 Pulse Rate [ Bases] Pulse Rate [ 85 From Monitor] Pulse Rate [ Throughout] Respiratory 18 15 17 Rate Respiratory Rate [Bases] Respiratory Rate [ Throughout] Blood Pressure 125/72 127/85 137/74 O2 Sat by Pulse 100 100 99 Oximetry 10/24/18 10/24/18 10/24/18 04:48 05:00 06:00 Temperature 99.1 F Pulse Rate 83 86 86 Pulse Rate [ Bases] Pulse Rate [ From Monitor] Pulse Rate [ Throughout] Respiratory 17 18 Rate Respiratory Rate [Bases] Respiratory Rate [ Throughout] Blood Pressure 121/70 139/86 143/76 O2 Sat by Pulse 100 99 100 Oximetry 10/24/18 10/24/18 10/24/18 07:00 07:52 07:53 Temperature Pulse Rate 84 91 H Pulse Rate [ 91 H Bases] Pulse Rate [ From Monitor] Pulse Rate [ Throughout] Respiratory 14 18 Rate Respiratory 18 Rate [Bases] Respiratory Rate [ Throughout] Blood Pressure 111/63 125/81 O2 Sat by Pulse 97 100 Oximetry 10/24/18 10/24/18 08:00 08:09 Temperature 97.9 F Pulse Rate 88 Pulse Rate [ 94 H Bases] Pulse Rate [ From Monitor] Pulse Rate [ Throughout] Respiratory 13 Rate Respiratory 18 Rate [Bases] Respiratory Rate [ Throughout] Blood Pressure 137/74 O2 Sat by Pulse 100 Oximetry - Lab 10/24/18 04:50 10/24/18 04:50 Most recent lab results Calcium 8.0 mg/dL (8.4-10.2) L 10/24/18 04:50 Phosphorus 8.50 mg/dL (2.5-4.5) H 10/14/18 09:40 Magnesium 2.10 mg/dL (1.7-2.3) 10/14/18 09:40 Urine Creatinine 57.5 mg/dL (0.1-20.0) H 10/11/18 05:40 Urine Sodium 70 mmol/L 10/11/18 05:40 Urine Total Protein 44 mg/dL (5-11.8) H 10/11/18 05:40 Medications & Allergies - Medications Allergies/Adverse Reactions: Allergies No Known Allergies Allergy (Unverified 09/11/18 17:50) Home Medications: Home Medications Medication Instructions Recorded Confirmed Last Taken Type No Known Home Medications [No 10/02/18 10/02/18 Unknown History Reported Home Medications] Active Medications: Generic Name Dose Route Start Last Admin Trade Name Freq PRN Reason Stop Dose Admin Acetaminophen 650 mg 09/11/18 19:30 10/09/18 16:32 Tylenol PO 650 mg Q4H PRN Administration Pain MILD(1-3)/Fever >100.5/RIVERA Acetaminophen 650 mg 09/21/18 07:39 10/07/18 21:15 Tylenol [place] 650 mg Q4H PRN Administration Fever >101 Albuterol 2.5 mg 09/20/18 20:00 10/24/18 07:52 Proventil IH 2.5 mg Q6HRT GIA Administration Amiodarone HCl 200 mg 10/22/18 10:00 10/23/18 10:48 Cordarone PO 200 mg DAILY GIA Administration Lipase/Protease/Amylase 1 each 09/30/18 12:01 Pancrealen Gibbs 10,500 Unit FEEDTUBE PRN PRN For Clogged Feeding Tube Atovaquone 750 mg 09/21/18 10:00 10/23/18 21:31 Mepron PO 750 mg BID GIA Administration Azithromycin 1,200 mg 10/18/18 10:00 10/18/18 10:35 Zithromax PO 1,200 mg Tu GIA Administration Darunavir 800 mg 10/21/18 12:00 10/23/18 09:09 Prezista PO 800 mg QDAY GIA Administration Emtricitabine 200 mg 10/13/18 10:00 10/21/18 14:29 Emtriva PO 200 mg Q96H GIA Administration Famotidine 20 mg 10/10/18 10:00 10/23/18 09:05 Pepcid PO 20 mg DAILY GIA Administration Fluconazole 200 mg 10/05/18 12:00 10/23/18 09:11 Diflucan PO 200 mg QDAY GIA Administration Folic Acid 1 mg 10/07/18 10:00 10/23/18 09:08 Folvite PO 1 mg QDAY GIA Administration Glycopyrrolate 2 mg 10/07/18 18:00 10/24/18 06:26 Robinul PO 2 mg Q6HR GIA Administration Hydrophilic Ointment 1 applic 09/21/18 01:46 09/22/18 03:46 Vaseline Lip Therapy TP 1 applic Q2HR PRN Administration Dry Lips Ganciclovir Sodium 150 mg/ 250 mls @ 100 mls/hr 10/12/18 10:00 10/21/18 14:23 Sodium Chloride IV 100 mls/hr MoWeFr GIA Administration Sodium Chloride 100 mls @ 999 mls/hr 10/17/18 10:39 Nacl 0.9% IV CHERYL PRN Hypotension Levetiracetam 750 mg 10/12/18 22:00 10/23/18 21:31 Keppra PO 750 mg BID GIA Administration Levothyroxine Sodium 25 mcg 09/19/18 06:00 10/24/18 06:26 Synthroid PO 25 mcg DAILY@0600 GIA Administration Metoprolol Tartrate 12.5 mg 10/10/18 13:00 10/23/18 21:30 Lopressor PO 12.5 mg BID GIA Administration Morphine Sulfate 2 mg 10/20/18 18:37 Morphine IV Q4H PRN Pain, Moderate (4-6) Multi-Ingred Cream/Lotion/Oil/Oint 1 applic 09/21/18 01:46 Artificial Tears Ophth Oint OU Q4HR PRN Dry Eye(s) Ondansetron HCl 4 mg 09/11/18 19:30 Zofran IV Q8H PRN Nausea And Vomiting Ritonavir 100 mg 10/21/18 12:00 10/23/18 09:10 Norvir PO 100 mg QDAY GIA Administration Scopolamine 1 each 09/18/18 18:00 10/21/18 18:22 Transderm-Scop TD 1 each Q3D GIA Administration Simple Syrup 15 ml 10/15/18 10:45 Simple Syrup FEEDTUBE PRN PRN Hypoglycemia Simple Syrup 30 ml 10/15/18 10:45 Simple Syrup FEEDTUBE PRN PRN Hypoglycemia Sodium Bicarbonate 325 mg 10/15/18 10:45 Sodium Bicarbonate FEEDTUBE PRN PRN For Clogged Feeding Tube Sodium Chloride 10 ml 09/11/18 22:00 10/23/18 21:31 Sodium Chloride Flush Syringe 10 Ml IV 10 ml BID GIA Administration Sodium Chloride 10 ml 09/11/18 19:30 10/21/18 18:16 Sodium Chloride Flush Syringe 10 Ml IV 10 ml PRN PRN Administration LINE FLUSH
--- NOTE | 2018-10-24 09:14 | Progress Note ---
Assessment and Plan - Patient Problems (1) Acute respiratory failure Current Visit: Yes Status: Acute Qualifiers: Respiratory failure complication: hypoxia Qualified Code(s): J96.01 - Acute respiratory failure with hypoxia Plan to address problem: Pt stable. Pt scheduled for trach/PEG tomorrow at 0800. Consent on chart. Will place pre-procedure orders today. Please call with questions. Time=10min Subjective Date of service: 10/24/18 Patient Reports: Positive: other (no new issues) Objective Vital Signs - 12hr 10/23/18 10/23/18 10/23/18 21:30 22:00 23:00 Temperature Pulse Rate 100 H 98 H 92 H Pulse Rate [ Bases] Pulse Rate [ From Monitor] Pulse Rate [ Throughout] Respiratory 12 21 Rate Respiratory Rate [Bases] Respiratory Rate [ Throughout] Blood Pressure 120/69 122/65 129/72 O2 Sat by Pulse 97 98 Oximetry 10/23/18 10/23/18 10/24/18 23:04 23:47 00:00 Temperature Pulse Rate 91 H 91 H 93 H Pulse Rate [ Bases] Pulse Rate [ 95 H From Monitor] Pulse Rate [ Throughout] Respiratory 20 17 Rate Respiratory Rate [Bases] Respiratory Rate [ Throughout] Blood Pressure 129/72 118/68 127/73 O2 Sat by Pulse 99 100 97 Oximetry 10/24/18 10/24/18 10/24/18 01:00 01:32 02:00 Temperature 99.5 F Pulse Rate 93 H 87 Pulse Rate [ Bases] Pulse Rate [ From Monitor] Pulse Rate [ 88 Throughout] Respiratory 23 18 Rate Respiratory Rate [Bases] Respiratory 21 Rate [ Throughout] Blood Pressure 127/73 125/72 O2 Sat by Pulse 100 100 Oximetry 10/24/18 10/24/18 10/24/18 03:00 04:00 04:48 Temperature Pulse Rate 89 84 83 Pulse Rate [ Bases] Pulse Rate [ 85 From Monitor] Pulse Rate [ Throughout] Respiratory 15 17 Rate Respiratory Rate [Bases] Respiratory Rate [ Throughout] Blood Pressure 127/85 137/74 121/70 O2 Sat by Pulse 100 99 100 Oximetry 10/24/18 10/24/18 10/24/18 05:00 06:00 07:00 Temperature 99.1 F Pulse Rate 86 86 84 Pulse Rate [ Bases] Pulse Rate [ From Monitor] Pulse Rate [ Throughout] Respiratory 17 18 14 Rate Respiratory Rate [Bases] Respiratory Rate [ Throughout] Blood Pressure 139/86 143/76 111/63 O2 Sat by Pulse 99 100 97 Oximetry 10/24/18 10/24/18 10/24/18 07:52 07:53 08:00 Temperature 97.9 F Pulse Rate 91 H 88 Pulse Rate [ 91 H Bases] Pulse Rate [ From Monitor] Pulse Rate [ Throughout] Respiratory 18 13 Rate Respiratory 18 Rate [Bases] Respiratory Rate [ Throughout] Blood Pressure 125/81 137/74 O2 Sat by Pulse 100 100 Oximetry 10/24/18 08:09 Temperature Pulse Rate Pulse Rate [ 94 H Bases] Pulse Rate [ From Monitor] Pulse Rate [ Throughout] Respiratory Rate Respiratory 18 Rate [Bases] Respiratory Rate [ Throughout] Blood Pressure O2 Sat by Pulse Oximetry - General physical appearance no distress, no pain, other (awake. not following commands) - Neck other (clear. No signs of infection or swelling) - Respiratory normal expansion, normal respiratory effort - Abdomen soft, not tender, not guarding, not rigid - Integumentary no rash, no growths, no abnormal pigmentation - Labs 10/24/18 04:50 10/24/18 04:50 Diabetes panel 10/24/18 Range/Units 04:50 Sodium 142 (137-145) mmol/L Potassium 3.0 L (3.6-5.0) mmol/L Chloride 101.6 (98-107) mmol/L Carbon Dioxide 19 L (22-30) mmol/L BUN 94 H (9-20) mg/dL Creatinine 7.3 H (0.8-1.5) mg/dL Glucose 94 (75-100) mg/dL Calcium 8.0 L (8.4-10.2) mg/dL Calcium panel 10/24/18 Range/Units 04:50 Calcium 8.0 L (8.4-10.2) mg/dL Pituitary panel 10/24/18 Range/Units 04:50 Sodium 142 (137-145) mmol/L Potassium 3.0 L (3.6-5.0) mmol/L Chloride 101.6 (98-107) mmol/L Carbon Dioxide 19 L (22-30) mmol/L BUN 94 H (9-20) mg/dL Creatinine 7.3 H (0.8-1.5) mg/dL Glucose 94 (75-100) mg/dL Calcium 8.0 L (8.4-10.2) mg/dL Adrenal panel 10/24/18 Range/Units 04:50 Sodium 142 (137-145) mmol/L Potassium 3.0 L (3.6-5.0) mmol/L Chloride 101.6 (98-107) mmol/L Carbon Dioxide 19 L (22-30) mmol/L BUN 94 H (9-20) mg/dL Creatinine 7.3 H (0.8-1.5) mg/dL Glucose 94 (75-100) mg/dL Calcium 8.0 L (8.4-10.2) mg/dL
--- NOTE | 2018-10-24 10:09 | Progress Note ---
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) Elevated LFTs Neutropenia Thrombocytopenia - lower extremity dopplers -ve - continue SCD's for VTE prophylaxis - resume Eliquis post trach (stopped Apixaban in anticipation of tracheostomy) - prn ABG's & CXR's at this point (will repeat CXR in am) - continue daily SBT's as tolerated - for tracheostomy tentatively in am - continue HD/UF for toxin and volume clearance - continue therapy for CMV encephalitis, neuro syphillis as well as ART - appreciate ID input - continue Robinul & scopolamine for secretion control (secretions improved) - continue to hold all other sedating medications - continue supplemental oxygen to keep sats > 90% - continue bronchodilators with pulmonary hygiene per RT - Continue empiric and targeted anti-infective's per ID recs antibiotics per ID - continue set rate at 12/min - daily SAT's if sedation resumed - continue enteral nutrition as tolerated - when resumed target sedation for RASS 0 to -1 - PT/OT/ROM exercises as tolerated - mobility protocol for pressure ulcer prophylaxis - continue GI & VTE prophylaxis - continue other care per attending / other consultants ...... re-evaluate in am & prn The high probability of a clinically significant, sudden or life threatening deterioration of the [cardiac, respiratory and neurologic] system(s) required my full and direct attention, intervention and personal management. The aggregate critical care time was [34] minutes. This time is in addition to time spent performing reported procedures but includes the following: [x] Data Review and interpretation [x] Patient assessment and monitoring of vital signs [x] Documentation [x] Medication orders and management Subjective Date of service: 10/24/18 Principal diagnosis: Severe sepsis; Ac hypoxemic Resp failure; [place]. Pneumonia; Ac encephalopathy Interval history: Patient is seen today for: Severe sepsis (present on admission with fever, tachycardia, hypotension and elevated lactate); Acute hypoxemic Respiratory failure; Bilateral pneumonia; Acute encephalopathy (Toxic / Metabolic); Atrial Fibrillation with RVR Seen and examined at bedside; 24hour events reviewed; nursing and respiratory care staff consulted; no adverse overnight events reported to me; resting peacefully in bed; for tracheostomy tomorrow; remains on MVS; somnolent; remains on dialysis but still making up to 500 mls of urine daily Objective Vital Signs - 12hr 10/23/18 10/23/18 10/23/18 23:00 23:04 23:47 Temperature Pulse Rate 92 H 91 H 91 H Pulse Rate [ Bases] Pulse Rate [ From Monitor] Pulse Rate [ Throughout] Respiratory 21 20 Rate Respiratory Rate [Bases] Respiratory Rate [ Throughout] Blood Pressure 129/72 129/72 118/68 O2 Sat by Pulse 98 99 100 Oximetry 10/24/18 10/24/18 10/24/18 00:00 01:00 01:32 Temperature 99.5 F Pulse Rate 93 H 93 H Pulse Rate [ Bases] Pulse Rate [ 95 H From Monitor] Pulse Rate [ 88 Throughout] Respiratory 17 23 Rate Respiratory Rate [Bases] Respiratory 21 Rate [ Throughout] Blood Pressure 127/73 127/73 O2 Sat by Pulse 97 100 Oximetry 10/24/18 10/24/18 10/24/18 02:00 03:00 04:00 Temperature Pulse Rate 87 89 84 Pulse Rate [ Bases] Pulse Rate [ 85 From Monitor] Pulse Rate [ Throughout] Respiratory 18 15 17 Rate Respiratory Rate [Bases] Respiratory Rate [ Throughout] Blood Pressure 125/72 127/85 137/74 O2 Sat by Pulse 100 100 99 Oximetry 10/24/18 10/24/18 10/24/18 04:48 05:00 06:00 Temperature 99.1 F Pulse Rate 83 86 86 Pulse Rate [ Bases] Pulse Rate [ From Monitor] Pulse Rate [ Throughout] Respiratory 17 18 Rate Respiratory Rate [Bases] Respiratory Rate [ Throughout] Blood Pressure 121/70 139/86 143/76 O2 Sat by Pulse 100 99 100 Oximetry 10/24/18 10/24/18 10/24/18 07:00 07:52 07:53 Temperature Pulse Rate 84 91 H Pulse Rate [ 91 H Bases] Pulse Rate [ From Monitor] Pulse Rate [ Throughout] Respiratory 14 18 Rate Respiratory 18 Rate [Bases] Respiratory Rate [ Throughout] Blood Pressure 111/63 125/81 O2 Sat by Pulse 97 100 Oximetry 10/24/18 10/24/18 08:00 08:09 Temperature 97.9 F Pulse Rate 88 Pulse Rate [ 94 H Bases] Pulse Rate [ From Monitor] Pulse Rate [ Throughout] Respiratory 13 Rate Respiratory 18 Rate [Bases] Respiratory Rate [ Throughout] Blood Pressure 137/74 O2 Sat by Pulse 100 Oximetry Constitutional: lethargic, agitated, appears uncomfortable, other (young looking AAM, normocephalic with mildly increased respiratory effort at rest) Eyes: non-icteric ENT: oropharynx moist, other (ETT 25 cm NIKA) Neck: supple, no lymphadenopathy, other (no thyromegaly) Effort: normal Ascultation: Bilateral: rales, rhonchi (scant) Percussion: Bilateral: not dull Cardiovascular: regular rate and rhythm, other (S1,S2, no murmurs, gallps or rubs) Gastrointestinal: normoactive bowel sounds, soft, non-tender, non-distended Integumentary: rash Extremities: no cyanosis, pulses normal, no ischemia or petechiae, edema (1+) Neurologic: non-focal exam (grossly), pupils equal and round, other (Left sided hemiparesis) Psychiatric: other (unable to assess) CBC and BMP: 10/24/18 04:50 10/25/18 05:20 ABG, PT/INR, D-dimer: ABG POC ABG pH 7.399 (7.35-7.45) 10/20/18 12:17 POC ABG pCO2 33.3 (35-45) L 10/20/18 12:17 POC ABG pO2 107 (80-105) H 10/20/18 12:17 POC ABG HCO3 20.6 10/20/18 12:17 POC ABG Total CO2 22 10/20/18 12:17 POC ABG O2 Sat 98 10/20/18 12:17 PT/INR, D-dimer PT 16.0 Sec. (12.2-14.9) H 10/10/18 08:09 INR 1.20 (0.87-1.13) H 10/10/18 08:09 Abnormal lab findings: Abnormal Labs 09/11/18 09/11/18 09/11/18 18:00 18:00 18:00 WBC 1.9 L* RBC Hgb Hct RDW Plt Count 130 L Seg Neuts % (Manual) Lymphocytes % (Manual) Monocytes % (Manual) 16.0 H Eosinophils % (Manual) Basophils % (Manual) Nucleated RBC % Seg Neutrophils # Man 0.9 L Abs Lymphs (Manual) Lymphocytes # (Manual) 0.5 L Basophils # (Manual) PT INR APTT Heparin Anti-Xa Level POC ABG pH POC ABG pCO2 POC ABG pO2 Sodium 131 L Potassium Chloride Carbon Dioxide 17 L BUN 21 H Creatinine Glucose 126 H POC Glucose Lactic Acid 2.60 H* Calcium 8.1 L Phosphorus Magnesium Iron TIBC Ferritin AST 123 H ALT 115 H Total Creatine Kinase Total Protein Albumin 3.0 L Vitamin B12 Folate TSH Free T4 Urine WBC (Auto) Urine Creatinine Urine Chloride Urine Total Protein CSF VDRL Lymph Enumerat CD4/CD8 Absolute CD3 Count % CD4 Cells Absolute CD4 Count % CD8 Cells Absolute CD19 Count T.pallidum Ab (FTA-ABS) HIV-1 RNA PCR copies/ml HIV-1 RNA (PCR) log Miscellaneous Test 09/11/18 09/13/18 09/13/18 19:01 04:28 07:31 WBC 2.0 L RBC Hgb Hct RDW Plt Count 116 L Seg Neuts % (Manual) Lymphocytes % (Manual) Monocytes % (Manual) 8.0 H Eosinophils % (Manual) Basophils % (Manual) Nucleated RBC % Seg Neutrophils # Man 1.0 L Abs Lymphs (Manual) Lymphocytes # (Manual) 0.5 L Basophils # (Manual) PT INR APTT Heparin Anti-Xa Level POC ABG pH POC ABG pCO2 POC ABG pO2 Sodium Potassium Chloride 110.4 H Carbon Dioxide 19 L BUN Creatinine Glucose POC Glucose Lactic Acid 3.70 H* Calcium 7.9 L Phosphorus Magnesium Iron TIBC Ferritin AST ALT Total Creatine Kinase Total Protein Albumin Vitamin B12 Folate TSH Free T4 Urine WBC (Auto) Urine Creatinine Urine Chloride Urine Total Protein CSF VDRL Lymph Enumerat CD4/CD8 Absolute CD3 Count % CD4 Cells Absolute CD4 Count % CD8 Cells Absolute CD19 Count T.pallidum Ab (FTA-ABS) HIV-1 RNA PCR copies/ml HIV-1 RNA (PCR) log Miscellaneous Test 09/13/18 09/13/18 09/13/18 07:31 12:29 12:29 WBC RBC Hgb Hct RDW Plt Count Seg Neuts % (Manual) Lymphocytes % (Manual) Monocytes % (Manual) Eosinophils % (Manual) Basophils % (Manual) Nucleated RBC % Seg Neutrophils # Man Abs Lymphs (Manual) 309 L Lymphocytes # (Manual) Basophils # (Manual) PT INR APTT Heparin Anti-Xa Level POC ABG pH POC ABG pCO2 POC ABG pO2 Sodium Potassium Chloride Carbon Dioxide BUN Creatinine Glucose POC Glucose Lactic Acid Calcium Phosphorus Magnesium Iron TIBC Ferritin AST 70 H ALT 68 H Total Creatine Kinase Total Protein Albumin 2.5 L Vitamin B12 Folate TSH Free T4 Urine WBC (Auto) Urine Creatinine Urine Chloride Urine Total Protein CSF VDRL Lymph Enumerat CD4/CD8 0.01 L Absolute CD3 Count 220 L % CD4 Cells 1 L Absolute CD4 Count 4 L % CD8 Cells 70 H Absolute CD19 Count 54 L T.pallidum Ab (FTA-ABS) HIV-1 RNA PCR copies/ml 52846 H HIV-1 RNA (PCR) log 4.71 H Miscellaneous Test 09/13/18 09/14/18 09/14/18 12:29 07:17 16:34 WBC RBC Hgb Hct RDW Plt Count Seg Neuts % (Manual) Lymphocytes % (Manual) Monocytes % (Manual) Eosinophils % (Manual) Basophils % (Manual) Nucleated RBC % Seg Neutrophils # Man Abs Lymphs (Manual) Lymphocytes # (Manual) Basophils # (Manual) PT INR APTT Heparin Anti-Xa Level POC ABG pH POC ABG pCO2 POC ABG pO2 Sodium Potassium 3.4 L Chloride Carbon Dioxide 18 L BUN Creatinine Glucose 104 H POC Glucose Lactic Acid Calcium 7.6 L Phosphorus Magnesium Iron TIBC Ferritin AST 49 H ALT Total Creatine Kinase Total Protein Albumin 2.5 L Vitamin B12 Folate TSH Free T4 Urine WBC (Auto) Urine Creatinine Urine Chloride Urine Total Protein CSF VDRL Lymph Enumerat CD4/CD8 Absolute CD3 Count % CD4 Cells Absolute CD4 Count % CD8 Cells Absolute CD19 Count T.pallidum Ab (FTA-ABS) Reactive H HIV-1 RNA PCR copies/ml HIV-1 RNA (PCR) log Miscellaneous Test Flexitest 1 H 09/15/18 09/15/18 09/15/18 05:05 05:05 Unknown WBC 1.6 L* RBC Hgb 10.4 L Hct 31.1 L D RDW Plt Count 113 L Seg Neuts % (Manual) Lymphocytes % (Manual) Monocytes % (Manual) Eosinophils % (Manual) Basophils % (Manual) Nucleated RBC % Seg Neutrophils # Man Abs Lymphs (Manual) Lymphocytes # (Manual) Basophils # (Manual) PT INR APTT Heparin Anti-Xa Level POC ABG pH POC ABG pCO2 POC ABG pO2 Sodium Potassium Chloride 107.9 H Carbon Dioxide 18 L BUN 6 L Creatinine Glucose POC Glucose Lactic Acid Calcium 7.4 L Phosphorus Magnesium Iron TIBC Ferritin AST ALT Total Creatine Kinase Total Protein Albumin Vitamin B12 Folate TSH Free T4 Urine WBC (Auto) Urine Creatinine Urine Chloride Urine Total Protein CSF VDRL Reactive 1:8 H Lymph Enumerat CD4/CD8 Absolute CD3 Count % CD4 Cells Absolute CD4 Count % CD8 Cells Absolute CD19 Count T.pallidum Ab (FTA-ABS) HIV-1 RNA PCR copies/ml HIV-1 RNA (PCR) log Miscellaneous Test 09/16/18 09/16/18 09/16/18 06:55 11:41 11:41 WBC 2.8 L RBC Hgb 10.9 L Hct 33.5 L RDW Plt Count 135 L Seg Neuts % (Manual) Lymphocytes % (Manual) Monocytes % (Manual) Eosinophils % (Manual) Basophils % (Manual) Nucleated RBC % Seg Neutrophils # Man Abs Lymphs (Manual) Lymphocytes # (Manual) Basophils # (Manual) PT INR APTT Heparin Anti-Xa Level POC ABG pH POC ABG pCO2 POC ABG pO2 Sodium Potassium Chloride Carbon Dioxide BUN Creatinine Glucose POC Glucose Lactic Acid Calcium Phosphorus Magnesium Iron TIBC Ferritin AST ALT Total Creatine Kinase Total Protein Albumin Vitamin B12 Folate TSH 4.210 H Free T4 0.72 L Urine WBC (Auto) Urine Creatinine Urine Chloride Urine Total Protein CSF VDRL Lymph Enumerat CD4/CD8 Absolute CD3 Count % CD4 Cells Absolute CD4 Count % CD8 Cells Absolute CD19 Count T.pallidum Ab (FTA-ABS) HIV-1 RNA PCR copies/ml HIV-1 RNA (PCR) log Miscellaneous Test 09/16/18 09/16/18 09/17/18 11:41 15:43 05:13 WBC 2.0 L RBC Hgb 10.9 L Hct 32.7 L RDW Plt Count Seg Neuts % (Manual) Lymphocytes % (Manual) Monocytes % (Manual) Eosinophils % (Manual) Basophils % (Manual) Nucleated RBC % Seg Neutrophils # Man Abs Lymphs (Manual) Lymphocytes # (Manual) Basophils # (Manual) PT INR APTT Heparin Anti-Xa Level POC ABG pH POC ABG pCO2 29.3 L POC ABG pO2 70 L Sodium Potassium Chloride Carbon Dioxide BUN Creatinine Glucose POC Glucose Lactic Acid Calcium Phosphorus Magnesium Iron TIBC Ferritin AST ALT Total Creatine Kinase Total Protein Albumin Vitamin B12 934.5 H Folate TSH Free T4 Urine WBC (Auto) Urine Creatinine Urine Chloride Urine Total Protein CSF VDRL Lymph Enumerat CD4/CD8 Absolute CD3 Count % CD4 Cells Absolute CD4 Count % CD8 Cells Absolute CD19 Count T.pallidum Ab (FTA-ABS) HIV-1 RNA PCR copies/ml HIV-1 RNA (PCR) log Miscellaneous Test 09/17/18 09/17/18 09/18/18 05:13 21:57 12:46 WBC RBC Hgb Hct RDW Plt Count Seg Neuts % (Manual) Lymphocytes % (Manual) Monocytes % (Manual) Eosinophils % (Manual) Basophils % (Manual) Nucleated RBC % Seg Neutrophils # Man Abs Lymphs (Manual) Lymphocytes # (Manual) Basophils # (Manual) PT INR APTT Heparin Anti-Xa Level POC ABG pH POC ABG pCO2 POC ABG pO2 Sodium Potassium Chloride 107.2 H Carbon Dioxide 21 L BUN 3 L Creatinine 0.7 L Glucose POC Glucose 108 H Lactic Acid Calcium 7.9 L Phosphorus Magnesium Iron TIBC Ferritin AST ALT Total Creatine Kinase Total Protein 6.1 L Albumin 2.6 L Vitamin B12 Folate TSH Free T4 0.75 L Urine WBC (Auto) Urine Creatinine Urine Chloride Urine Total Protein CSF VDRL Lymph Enumerat CD4/CD8 Absolute CD3 Count % CD4 Cells Absolute CD4 Count % CD8 Cells Absolute CD19 Count T.pallidum Ab (FTA-ABS) HIV-1 RNA PCR copies/ml HIV-1 RNA (PCR) log Miscellaneous Test 09/18/18 09/19/18 09/19/18 12:46 04:57 04:57 WBC 2.1 L RBC Hgb 11.4 L Hct 34.2 L RDW Plt Count Seg Neuts % (Manual) Lymphocytes % (Manual) Monocytes % (Manual) Eosinophils % (Manual) Basophils % (Manual) Nucleated RBC % Seg Neutrophils # Man Abs Lymphs (Manual) Lymphocytes # (Manual) Basophils # (Manual) PT INR APTT Heparin Anti-Xa Level POC ABG pH POC ABG pCO2 POC ABG pO2 Sodium Potassium Chloride Carbon Dioxide 19 L BUN 6 L Creatinine Glucose POC Glucose Lactic Acid Calcium 7.9 L Phosphorus Magnesium Iron TIBC Ferritin AST ALT Total Creatine Kinase Total Protein Albumin Vitamin B12 Folate TSH 5.190 H Free T4 Urine WBC (Auto) Urine Creatinine Urine Chloride Urine Total Protein CSF VDRL Lymph Enumerat CD4/CD8 Absolute CD3 Count % CD4 Cells Absolute CD4 Count % CD8 Cells Absolute CD19 Count T.pallidum Ab (FTA-ABS) HIV-1 RNA PCR copies/ml HIV-1 RNA (PCR) log Miscellaneous Test 09/19/18 09/19/18 09/20/18 15:00 15:00 05:33 WBC RBC Hgb Hct RDW Plt Count Seg Neuts % (Manual) Lymphocytes % (Manual) Monocytes % (Manual) Eosinophils % (Manual) Basophils % (Manual) Nucleated RBC % Seg Neutrophils # Man Abs Lymphs (Manual) Lymphocytes # (Manual) Basophils # (Manual) PT INR APTT Heparin Anti-Xa Level POC ABG pH POC ABG pCO2 POC ABG pO2 Sodium 136 L Potassium Chloride Carbon Dioxide 19 L BUN 7 L Creatinine Glucose POC Glucose Lactic Acid Calcium Phosphorus Magnesium Iron TIBC Ferritin AST ALT Total Creatine Kinase Total Protein Albumin Vitamin B12 Folate TSH Free T4 Urine WBC (Auto) Urine Creatinine Urine Chloride Urine Total Protein CSF VDRL Reactive 1:4 H Lymph Enumerat CD4/CD8 Absolute CD3 Count % CD4 Cells Absolute CD4 Count % CD8 Cells Absolute CD19 Count T.pallidum Ab (FTA-ABS) HIV-1 RNA PCR copies/ml HIV-1 RNA (PCR) log Miscellaneous Test Flexitest 1 H 09/20/18 09/21/18 09/21/18 06:52 01:06 03:49 WBC 2.5 L RBC Hgb Hct RDW Plt Count Seg Neuts % (Manual) Lymphocytes % (Manual) Monocytes % (Manual) Eosinophils % (Manual) Basophils % (Manual) Nucleated RBC % Seg Neutrophils # Man Abs Lymphs (Manual) Lymphocytes # (Manual) Basophils # (Manual) PT INR APTT Heparin Anti-Xa Level POC ABG pH 7.159 L POC ABG pCO2 32.9 L 70.0 H POC ABG pO2 62 L 254 H Sodium Potassium Chloride Carbon Dioxide BUN Creatinine Glucose POC Glucose Lactic Acid Calcium Phosphorus Magnesium Iron TIBC Ferritin AST ALT Total Creatine Kinase Total Protein Albumin Vitamin B12 Folate TSH Free T4 Urine WBC (Auto) Urine Creatinine Urine Chloride Urine Total Protein CSF VDRL Lymph Enumerat CD4/CD8 Absolute CD3 Count % CD4 Cells Absolute CD4 Count % CD8 Cells Absolute CD19 Count T.pallidum Ab (FTA-ABS) HIV-1 RNA PCR copies/ml HIV-1 RNA (PCR) log Miscellaneous Test 09/21/18 09/21/1809/21/19 04:15 04:15 04:25 WBC 3.1 L RBC Hgb 11.6 L Hct RDW Plt Count Seg Neuts % (Manual) Lymphocytes % (Manual) Monocytes % (Manual) 12.0 H Eosinophils % (Manual) Basophils % (Manual) Nucleated RBC % Seg Neutrophils # Man 1.6 L Abs Lymphs (Manual) Lymphocytes # (Manual) 0.5 L Basophils # (Manual) PT INR APTT Heparin Anti-Xa Level POC ABG pH POC ABG pCO2 POC ABG pO2 Sodium Potassium 6.1 H* D Chloride Carbon Dioxide 19 L BUN Creatinine Glucose 108 H POC Glucose Lactic Acid Calcium Phosphorus Magnesium Iron TIBC Ferritin AST ALT Total Creatine Kinase 685 H Total Protein Albumin Vitamin B12 Folate TSH Free T4 Urine WBC (Auto) Urine Creatinine Urine Chloride Urine Total Protein CSF VDRL Lymph Enumerat CD4/CD8 Absolute CD3 Count % CD4 Cells Absolute CD4 Count % CD8 Cells Absolute CD19 Count T.pallidum Ab (FTA-ABS) HIV-1 RNA PCR copies/ml HIV-1 RNA (PCR) log Miscellaneous Test 09/21/18 09/21/18 09/21/18 09:59 10:07 11:00 WBC RBC Hgb 11.7 L Hct RDW Plt Count Seg Neuts % (Manual) Lymphocytes % (Manual) Monocytes % (Manual) Eosinophils % (Manual) Basophils % (Manual) Nucleated RBC % Seg Neutrophils # Man Abs Lymphs (Manual) Lymphocytes # (Manual) Basophils # (Manual) PT INR APTT Heparin Anti-Xa Level POC ABG pH 7.301 L POC ABG pCO2 POC ABG pO2 109 H Sodium Potassium 6.5 H* Chloride Carbon Dioxide 18 L BUN Creatinine 2.1 H D Glucose POC Glucose Lactic Acid Calcium 8.1 L Phosphorus Magnesium Iron TIBC Ferritin AST 94 H ALT Total Creatine Kinase Total Protein Albumin 2.8 L Vitamin B12 Folate TSH Free T4 Urine WBC (Auto) Urine Creatinine Urine Chloride Urine Total Protein CSF VDRL Lymph Enumerat CD4/CD8 Absolute CD3 Count % CD4 Cells Absolute CD4 Count % CD8 Cells Absolute CD19 Count T.pallidum Ab (FTA-ABS) HIV-1 RNA PCR copies/ml HIV-1 RNA (PCR) log Miscellaneous Test 09/21/18 09/21/18 09/21/18 15:00 21:54 21:54 WBC RBC Hgb Hct RDW Plt Count Seg Neuts % (Manual) Lymphocytes % (Manual) Monocytes % (Manual) Eosinophils % (Manual) Basophils % (Manual) Nucleated RBC % Seg Neutrophils # Man Abs Lymphs (Manual) Lymphocytes # (Manual) Basophils # (Manual) PT 19.9 H INR 1.65 H APTT 40.9 H Heparin Anti-Xa Level 0.98 H POC ABG pH POC ABG pCO2 POC ABG pO2 Sodium Potassium 5.2 H Chloride Carbon Dioxide BUN Creatinine Glucose POC Glucose Lactic Acid Calcium Phosphorus Magnesium Iron TIBC Ferritin AST ALT Total Creatine Kinase Total Protein Albumin Vitamin B12 Folate TSH Free T4 Urine WBC (Auto) Urine Creatinine Urine Chloride Urine Total Protein CSF VDRL Lymph Enumerat CD4/CD8 Absolute CD3 Count % CD4 Cells Absolute CD4 Count % CD8 Cells Absolute CD19 Count T.pallidum Ab (FTA-ABS) HIV-1 RNA PCR copies/ml HIV-1 RNA (PCR) log Miscellaneous Test 09/21/18 09/22/18 09/22/18 22:57 03:01 05:27 WBC RBC Hgb Hct RDW Plt Count Seg Neuts % (Manual) Lymphocytes % (Manual) Monocytes % (Manual) Eosinophils % (Manual) Basophils % (Manual) Nucleated RBC % Seg Neutrophils # Man Abs Lymphs (Manual) Lymphocytes # (Manual) Basophils # (Manual) PT INR APTT Heparin Anti-Xa Level POC ABG pH POC ABG pCO2 32.7 L POC ABG pO2 Sodium Potassium Chloride Carbon Dioxide BUN Creatinine Glucose POC Glucose 124 H 128 H Lactic Acid Calcium Phosphorus Magnesium Iron TIBC Ferritin AST ALT Total Creatine Kinase Total Protein Albumin Vitamin B12 Folate TSH Free T4 Urine WBC (Auto) Urine Creatinine Urine Chloride Urine Total Protein CSF VDRL Lymph Enumerat CD4/CD8 Absolute CD3 Count % CD4 Cells Absolute CD4 Count % CD8 Cells Absolute CD19 Count T.pallidum Ab (FTA-ABS) HIV-1 RNA PCR copies/ml HIV-1 RNA (PCR) log Miscellaneous Test 09/22/18 09/22/18 09/22/18 07:00 07:00 11:32 WBC 1.8 L* RBC 3.59 L Hgb 10.1 L Hct 30.8 L RDW Plt Count 126 L Seg Neuts % (Manual) Lymphocytes % (Manual) Monocytes % (Manual) Eosinophils % (Manual) Basophils % (Manual) Nucleated RBC % Seg Neutrophils # Man Abs Lymphs (Manual) Lymphocytes # (Manual) Basophils # (Manual) PT INR APTT Heparin Anti-Xa Level POC ABG pH POC ABG pCO2 POC ABG pO2 Sodium Potassium Chloride Carbon Dioxide BUN 27 H Creatinine 2.0 H Glucose 128 H POC Glucose 123 H Lactic Acid Calcium 6.9 L Phosphorus Magnesium Iron TIBC Ferritin AST ALT Total Creatine Kinase Total Protein Albumin Vitamin B12 Folate TSH Free T4 Urine WBC (Auto) Urine Creatinine Urine Chloride Urine Total Protein CSF VDRL Lymph Enumerat CD4/CD8 Absolute CD3 Count % CD4 Cells Absolute CD4 Count % CD8 Cells Absolute CD19 Count T.pallidum Ab (FTA-ABS) HIV-1 RNA PCR copies/ml HIV-1 RNA (PCR) log Miscellaneous Test 09/22/18 09/22/18 09/22/18 15:52 18:18 23:52 WBC RBC Hgb Hct RDW Plt Count Seg Neuts % (Manual) Lymphocytes % (Manual) Monocytes % (Manual) Eosinophils % (Manual) Basophils % (Manual) Nucleated RBC % Seg Neutrophils # Man Abs Lymphs (Manual) Lymphocytes # (Manual) Basophils # (Manual) PT INR APTT Heparin Anti-Xa Level POC ABG pH POC ABG pCO2 48.7 H POC ABG pO2 Sodium Potassium Chloride Carbon Dioxide BUN Creatinine Glucose POC Glucose 110 H 124 H Lactic Acid Calcium Phosphorus Magnesium Iron TIBC Ferritin AST ALT Total Creatine Kinase Total Protein Albumin Vitamin B12 Folate TSH Free T4 Urine WBC (Auto) Urine Creatinine Urine Chloride Urine Total Protein CSF VDRL Lymph Enumerat CD4/CD8 Absolute CD3 Count % CD4 Cells Absolute CD4 Count % CD8 Cells Absolute CD19 Count T.pallidum Ab (FTA-ABS) HIV-1 RNA PCR copies/ml HIV-1 RNA (PCR) log Miscellaneous Test 09/23/18 09/23/18 09/23/18 04:10 05:55 05:55 WBC RBC Hgb 10.0 L Hct 30.3 L RDW Plt Count 117 L Seg Neuts % (Manual) Lymphocytes % (Manual) Monocytes % (Manual) Eosinophils % (Manual) Basophils % (Manual) Nucleated RBC % Seg Neutrophils # Man Abs Lymphs (Manual) Lymphocytes # (Manual) Basophils # (Manual) PT INR APTT Heparin Anti-Xa Level 0.26 L POC ABG pH POC ABG pCO2 POC ABG pO2 144 H Sodium Potassium Chloride Carbon Dioxide BUN Creatinine Glucose POC Glucose Lactic Acid Calcium Phosphorus Magnesium Iron TIBC Ferritin AST ALT Total Creatine Kinase Total Protein Albumin Vitamin B12 Folate TSH Free T4 Urine WBC (Auto) Urine Creatinine Urine Chloride Urine Total Protein CSF VDRL Lymph Enumerat CD4/CD8 Absolute CD3 Count % CD4 Cells Absolute CD4 Count % CD8 Cells Absolute CD19 Count T.pallidum Ab (FTA-ABS) HIV-1 RNA PCR copies/ml HIV-1 RNA (PCR) log Miscellaneous Test 09/23/18 09/23/18 09/23/18 08:10 08:10 23:57 WBC 1.3 L* RBC 3.53 L Hgb 9.9 L Hct 30.0 L RDW Plt Count 119 L Seg Neuts % (Manual) Lymphocytes % (Manual) Monocytes % (Manual) Eosinophils % (Manual) Basophils % (Manual) Nucleated RBC % Seg Neutrophils # Man Abs Lymphs (Manual) Lymphocytes # (Manual) Basophils # (Manual) PT INR APTT Heparin Anti-Xa Level POC ABG pH POC ABG pCO2 POC ABG pO2 Sodium Potassium Chloride Carbon Dioxide BUN Creatinine Glucose 122 H POC Glucose 115 H Lactic Acid Calcium 6.9 L Phosphorus Magnesium Iron TIBC Ferritin AST ALT Total Creatine Kinase Total Protein Albumin Vitamin B12 Folate TSH Free T4 Urine WBC (Auto) Urine Creatinine Urine Chloride Urine Total Protein CSF VDRL Lymph Enumerat CD4/CD8 Absolute CD3 Count % CD4 Cells Absolute CD4 Count % CD8 Cells Absolute CD19 Count T.pallidum Ab (FTA-ABS) HIV-1 RNA PCR copies/ml HIV-1 RNA (PCR) log Miscellaneous Test 09/24/18 09/24/18 09/24/18 12:04 14:42 18:10 WBC RBC Hgb Hct RDW Plt Count Seg Neuts % (Manual) Lymphocytes % (Manual) Monocytes % (Manual) Eosinophils % (Manual) Basophils % (Manual) Nucleated RBC % Seg Neutrophils # Man Abs Lymphs (Manual) Lymphocytes # (Manual) Basophils # (Manual) PT INR APTT Heparin Anti-Xa Level 0.76 H POC ABG pH POC ABG pCO2 POC ABG pO2 Sodium Potassium Chloride Carbon Dioxide BUN Creatinine Glucose POC Glucose 111 H 138 H Lactic Acid Calcium Phosphorus Magnesium Iron TIBC Ferritin AST ALT Total Creatine Kinase Total Protein Albumin Vitamin B12 Folate TSH Free T4 Urine WBC (Auto) Urine Creatinine Urine Chloride Urine Total Protein CSF VDRL Lymph Enumerat CD4/CD8 Absolute CD3 Count % CD4 Cells Absolute CD4 Count % CD8 Cells Absolute CD19 Count T.pallidum Ab (FTA-ABS) HIV-1 RNA PCR copies/ml HIV-1 RNA (PCR) log Miscellaneous Test 09/25/18 09/25/18 09/25/18 03:45 04:24 14:20 WBC RBC Hgb 9.7 L Hct 29.4 L RDW Plt Count 104 L Seg Neuts % (Manual) Lymphocytes % (Manual) Monocytes % (Manual) Eosinophils % (Manual) Basophils % (Manual) Nucleated RBC % Seg Neutrophils # Man Abs Lymphs (Manual) Lymphocytes # (Manual) Basophils # (Manual) PT INR APTT Heparin Anti-Xa Level POC ABG pH 7.460 H POC ABG pCO2 32.9 L POC ABG pO2 Sodium Potassium 3.5 L Chloride 110.3 H Carbon Dioxide BUN Creatinine Glucose 105 H POC Glucose Lactic Acid Calcium 6.7 L Phosphorus Magnesium Iron TIBC Ferritin AST 633 H ALT 481 H Total Creatine Kinase Total Protein 4.8 L D Albumin 1.9 L Vitamin B12 Folate TSH Free T4 Urine WBC (Auto) Urine Creatinine Urine Chloride Urine Total Protein CSF VDRL Lymph Enumerat CD4/CD8 Absolute CD3 Count % CD4 Cells Absolute CD4 Count % CD8 Cells Absolute CD19 Count T.pallidum Ab (FTA-ABS) HIV-1 RNA PCR copies/ml HIV-1 RNA (PCR) log Miscellaneous Test 09/26/18 09/26/18 09/26/18 06:15 06:15 10:43 WBC 1.2 L* RBC 3.32 L Hgb 9.2 L Hct 28.6 L RDW Plt Count 97 L Seg Neuts % (Manual) 24.0 L Lymphocytes % (Manual) 43.0 H Monocytes % (Manual) 19.0 H Eosinophils % (Manual) 8.0 H Basophils % (Manual) 2.0 H Nucleated RBC % 3.0 H Seg Neutrophils # Man 0.0 L Abs Lymphs (Manual) Lymphocytes # (Manual) 0.0 L Basophils # (Manual) PT INR APTT Heparin Anti-Xa Level POC ABG pH 7.459 H POC ABG pCO2 POC ABG pO2 141 H Sodium Potassium Chloride 112.8 H Carbon Dioxide BUN Creatinine Glucose 110 H POC Glucose Lactic Acid Calcium 7.0 L Phosphorus 0.90 L* Magnesium Iron TIBC Ferritin AST 362 H ALT 360 H Total Creatine Kinase Total Protein 4.9 L Albumin 1.5 L Vitamin B12 Folate TSH Free T4 Urine WBC (Auto) Urine Creatinine Urine Chloride Urine Total Protein CSF VDRL Lymph Enumerat CD4/CD8 Absolute CD3 Count % CD4 Cells Absolute CD4 Count % CD8 Cells Absolute CD19 Count T.pallidum Ab (FTA-ABS) HIV-1 RNA PCR copies/ml HIV-1 RNA (PCR) log Miscellaneous Test 09/26/18 09/27/18 09/28/18 13:56 04:11 07:49 WBC RBC Hgb 9.1 L Hct 29.1 L RDW Plt Count 96 L Seg Neuts % (Manual) Lymphocytes % (Manual) Monocytes % (Manual) Eosinophils % (Manual) Basophils % (Manual) Nucleated RBC % Seg Neutrophils # Man Abs Lymphs (Manual) Lymphocytes # (Manual) Basophils # (Manual) PT INR APTT Heparin Anti-Xa Level POC ABG pH POC ABG pCO2 POC ABG pO2 Sodium 146 H Potassium Chloride 111.6 H Carbon Dioxide BUN Creatinine Glucose POC Glucose 135 H Lactic Acid Calcium 7.4 L Phosphorus Magnesium Iron TIBC Ferritin AST ALT Total Creatine Kinase Total Protein Albumin Vitamin B12 Folate TSH Free T4 Urine WBC (Auto) Urine Creatinine Urine Chloride Urine Total Protein CSF VDRL Lymph Enumerat CD4/CD8 Absolute CD3 Count % CD4 Cells Absolute CD4 Count % CD8 Cells Absolute CD19 Count T.pallidum Ab (FTA-ABS) HIV-1 RNA PCR copies/ml HIV-1 RNA (PCR) log Miscellaneous Test 09/28/18 09/29/18 09/29/18 10:43 05:00 05:00 WBC 1.2 L* RBC 3.13 L Hgb 8.6 L Hct 27.3 L RDW Plt Count 137 L Seg Neuts % (Manual) Lymphocytes % (Manual) Monocytes % (Manual) 16.0 H Eosinophils % (Manual) Basophils % (Manual) Nucleated RBC % 4.0 H Seg Neutrophils # Man 0.5 L Abs Lymphs (Manual) Lymphocytes # (Manual) 0.3 L Basophils # (Manual) PT INR APTT Heparin Anti-Xa Level POC ABG pH 7.300 L POC ABG pCO2 53.9 H POC ABG pO2 Sodium 147 H Potassium 3.4 L Chloride 114.5 H Carbon Dioxide BUN Creatinine Glucose POC Glucose Lactic Acid Calcium 7.7 L Phosphorus Magnesium Iron TIBC Ferritin AST 69 H ALT 110 H Total Creatine Kinase Total Protein 5.2 L Albumin 1.9 L Vitamin B12 Folate TSH Free T4 Urine WBC (Auto) Urine Creatinine Urine Chloride Urine Total Protein CSF VDRL Lymph Enumerat CD4/CD8 Absolute CD3 Count % CD4 Cells Absolute CD4 Count % CD8 Cells Absolute CD19 Count T.pallidum Ab (FTA-ABS) HIV-1 RNA PCR copies/ml HIV-1 RNA (PCR) log Miscellaneous Test 09/29/18 09/29/18 09/30/18 06:07 13:22 05:19 WBC 0.9 L* RBC 3.03 L Hgb 8.6 L Hct 25.9 L RDW Plt Count Seg Neuts % (Manual) Lymphocytes % (Manual) Monocytes % (Manual) Eosinophils % (Manual) Basophils % (Manual) Nucleated RBC % Seg Neutrophils # Man Abs Lymphs (Manual) Lymphocytes # (Manual) Basophils # (Manual) PT INR APTT Heparin Anti-Xa Level POC ABG pH POC ABG pCO2 46.9 H POC ABG pO2 Sodium Potassium Chloride Carbon Dioxide BUN Creatinine Glucose POC Glucose 109 H Lactic Acid Calcium Phosphorus Magnesium Iron TIBC Ferritin AST ALT Total Creatine Kinase Total Protein Albumin Vitamin B12 Folate TSH Free T4 Urine WBC (Auto) Urine Creatinine Urine Chloride Urine Total Protein CSF VDRL Lymph Enumerat CD4/CD8 Absolute CD3 Count % CD4 Cells Absolute CD4 Count % CD8 Cells Absolute CD19 Count T.pallidum Ab (FTA-ABS) HIV-1 RNA PCR copies/ml HIV-1 RNA (PCR) log Miscellaneous Test 09/30/18 09/30/18 09/30/18 05:19 11:14 23:28 WBC RBC Hgb Hct RDW Plt Count Seg Neuts % (Manual) Lymphocytes % (Manual) Monocytes % (Manual) Eosinophils % (Manual) Basophils % (Manual) Nucleated RBC % Seg Neutrophils # Man Abs Lymphs (Manual) Lymphocytes # (Manual) Basophils # (Manual) PT INR APTT Heparin Anti-Xa Level 0.72 H POC ABG pH POC ABG pCO2 46.6 H POC ABG pO2 Sodium 150 H Potassium Chloride 115.2 H Carbon Dioxide BUN Creatinine Glucose POC Glucose Lactic Acid Calcium 7.9 L Phosphorus Magnesium Iron TIBC Ferritin AST ALT Total Creatine Kinase Total Protein Albumin Vitamin B12 Folate TSH Free T4 Urine WBC (Auto) Urine Creatinine Urine Chloride Urine Total Protein CSF VDRL Lymph Enumerat CD4/CD8 Absolute CD3 Count % CD4 Cells Absolute CD4 Count % CD8 Cells Absolute CD19 Count T.pallidum Ab (FTA-ABS) HIV-1 RNA PCR copies/ml HIV-1 RNA (PCR) log Miscellaneous Test 10/01/18 10/01/18 10/02/18 04:55 04:55 07:15 WBC 0.9 L* 0.7 L* RBC 3.01 L 2.92 L Hgb 8.4 L 8.4 L Hct 26.0 L 24.9 L RDW Plt Count Seg Neuts % (Manual) Lymphocytes % (Manual) Monocytes % (Manual) Eosinophils % (Manual) Basophils % (Manual) Nucleated RBC % Seg Neutrophils # Man Abs Lymphs (Manual) Lymphocytes # (Manual) Basophils # (Manual) PT INR APTT Heparin Anti-Xa Level POC ABG pH POC ABG pCO2 POC ABG pO2 Sodium 147 H Potassium 3.4 L Chloride 113.1 H Carbon Dioxide BUN 22 H Creatinine Glucose POC Glucose Lactic Acid Calcium 7.3 L Phosphorus Magnesium Iron TIBC Ferritin AST ALT Total Creatine Kinase Total Protein Albumin Vitamin B12 Folate TSH Free T4 Urine WBC (Auto) Urine Creatinine Urine Chloride Urine Total Protein CSF VDRL Lymph Enumerat CD4/CD8 Absolute CD3 Count % CD4 Cells Absolute CD4 Count % CD8 Cells Absolute CD19 Count T.pallidum Ab (FTA-ABS) HIV-1 RNA PCR copies/ml HIV-1 RNA (PCR) log Miscellaneous Test 10/02/18 10/03/18 10/03/18 07:15 06:12 06:12 WBC 0.8 L* RBC 2.96 L Hgb 8.5 L Hct 25.9 L RDW 15.4 H Plt Count Seg Neuts % (Manual) Lymphocytes % (Manual) Monocytes % (Manual) Eosinophils % (Manual) Basophils % (Manual) Nucleated RBC % Seg Neutrophils # Man Abs Lymphs (Manual) Lymphocytes # (Manual) Basophils # (Manual) PT INR APTT Heparin Anti-Xa Level POC ABG pH POC ABG pCO2 POC ABG pO2 Sodium Potassium 3.4 L 3.4 L Chloride 108.3 H Carbon Dioxide BUN Creatinine Glucose POC Glucose Lactic Acid Calcium 7.6 L 7.4 L Phosphorus Magnesium Iron TIBC Ferritin AST ALT Total Creatine Kinase Total Protein Albumin Vitamin B12 Folate TSH Free T4 Urine WBC (Auto) Urine Creatinine Urine Chloride Urine Total Protein CSF VDRL Lymph Enumerat CD4/CD8 Absolute CD3 Count % CD4 Cells Absolute CD4 Count % CD8 Cells Absolute CD19 Count T.pallidum Ab (FTA-ABS) HIV-1 RNA PCR copies/ml HIV-1 RNA (PCR) log Miscellaneous Test 10/03/18 10/03/18 10/04/18 11:45 13:23 01:40 WBC RBC Hgb Hct RDW Plt Count Seg Neuts % (Manual) Lymphocytes % (Manual) Monocytes % (Manual) Eosinophils % (Manual) Basophils % (Manual) Nucleated RBC % Seg Neutrophils # Man Abs Lymphs (Manual) Lymphocytes # (Manual) Basophils # (Manual) PT INR APTT Heparin Anti-Xa Level 1.34 H 0.26 L POC ABG pH POC ABG pCO2 POC ABG pO2 Sodium Potassium Chloride Carbon Dioxide BUN Creatinine Glucose POC Glucose Lactic Acid Calcium Phosphorus Magnesium 1.40 L Iron TIBC Ferritin AST ALT Total Creatine Kinase Total Protein Albumin Vitamin B12 Folate TSH Free T4 Urine WBC (Auto) Urine Creatinine Urine Chloride Urine Total Protein CSF VDRL Lymph Enumerat CD4/CD8 Absolute CD3 Count % CD4 Cells Absolute CD4 Count % CD8 Cells Absolute CD19 Count T.pallidum Ab (FTA-ABS) HIV-1 RNA PCR copies/ml HIV-1 RNA (PCR) log Miscellaneous Test 10/04/18 10/04/18 10/06/18 04:45 04:45 09:40 WBC 0.8 L* RBC 3.11 L Hgb 9.0 L Hct 27.4 L RDW 15.4 H Plt Count Seg Neuts % (Manual) Lymphocytes % (Manual) Monocytes % (Manual) Eosinophils % (Manual) Basophils % (Manual) Nucleated RBC % Seg Neutrophils # Man Abs Lymphs (Manual) Lymphocytes # (Manual) Basophils # (Manual) PT INR APTT Heparin Anti-Xa Level POC ABG pH POC ABG pCO2 POC ABG pO2 Sodium Potassium Chloride Carbon Dioxide BUN Creatinine 0.7 L Glucose POC Glucose Lactic Acid Calcium 7.5 L Phosphorus Magnesium Iron 35 L TIBC 157 L Ferritin AST ALT Total Creatine Kinase Total Protein Albumin Vitamin B12 Folate TSH Free T4 Urine WBC (Auto) Urine Creatinine Urine Chloride Urine Total Protein CSF VDRL Lymph Enumerat CD4/CD8 Absolute CD3 Count % CD4 Cells Absolute CD4 Count % CD8 Cells Absolute CD19 Count T.pallidum Ab (FTA-ABS) HIV-1 RNA PCR copies/ml HIV-1 RNA (PCR) log Miscellaneous Test 10/06/18 10/06/18 10/07/18 09:40 09:40 04:20 WBC 1.1 L* RBC 3.07 L Hgb 9.1 L Hct 27.3 L RDW 20.3 H Plt Count Seg Neuts % (Manual) Lymphocytes % (Manual) Monocytes % (Manual) Eosinophils % (Manual) Basophils % (Manual) Nucleated RBC % Seg Neutrophils # Man 0.7 L Abs Lymphs (Manual) Lymphocytes # (Manual) 0.3 L Basophils # (Manual) PT INR APTT Heparin Anti-Xa Level POC ABG pH POC ABG pCO2 POC ABG pO2 Sodium Potassium Chloride Carbon Dioxide BUN Creatinine Glucose POC Glucose Lactic Acid Calcium Phosphorus Magnesium Iron TIBC Ferritin 1126.0 H AST ALT Total Creatine Kinase Total Protein Albumin Vitamin B12 Folate 6.71 L TSH Free T4 Urine WBC (Auto) Urine Creatinine Urine Chloride Urine Total Protein CSF VDRL Lymph Enumerat CD4/CD8 Absolute CD3 Count % CD4 Cells Absolute CD4 Count % CD8 Cells Absolute CD19 Count T.pallidum Ab (FTA-ABS) HIV-1 RNA PCR copies/ml HIV-1 RNA (PCR) log Miscellaneous Test 10/07/18 10/07/18 10/09/18 04:20 15:38 04:20 WBC 1.1 L* RBC 3.35 L Hgb 9.9 L Hct 30.1 L RDW 21.4 H Plt Count Seg Neuts % (Manual) 19.0 L Lymphocytes % (Manual) 42.0 H Monocytes % (Manual) 18.0 H Eosinophils % (Manual) 15.0 H Basophils % (Manual) 2.0 H Nucleated RBC % Seg Neutrophils # Man 0.2 L Abs Lymphs (Manual) Lymphocytes # (Manual) 0.5 L Basophils # (Manual) PT INR APTT Heparin Anti-Xa Level POC ABG pH 7.516 H POC ABG pCO2 32.1 L POC ABG pO2 Sodium Potassium Chloride Carbon Dioxide BUN Creatinine 0.7 L Glucose POC Glucose Lactic Acid Calcium 7.9 L Phosphorus Magnesium Iron TIBC Ferritin AST ALT Total Creatine Kinase Total Protein 5.5 L Albumin 2.2 L Vitamin B12 Folate TSH Free T4 Urine WBC (Auto) Urine Creatinine Urine Chloride Urine Total Protein CSF VDRL Lymph Enumerat CD4/CD8 Absolute CD3 Count % CD4 Cells Absolute CD4 Count % CD8 Cells Absolute CD19 Count T.pallidum Ab (FTA-ABS) HIV-1 RNA PCR copies/ml HIV-1 RNA (PCR) log Miscellaneous Test 10/09/18 10/09/18 10/09/18 04:20 11:48 17:31 WBC RBC Hgb Hct RDW Plt Count Seg Neuts % (Manual) Lymphocytes % (Manual) Monocytes % (Manual) Eosinophils % (Manual) Basophils % (Manual) Nucleated RBC % Seg Neutrophils # Man Abs Lymphs (Manual) Lymphocytes # (Manual) Basophils # (Manual) PT INR APTT Heparin Anti-Xa Level POC ABG pH POC ABG pCO2 POC ABG pO2 Sodium Potassium 5.4 H Chloride Carbon Dioxide 21 L BUN 55 H 72 H Creatinine 3.8 H D 4.5 H Glucose 118 H POC Glucose 124 H Lactic Acid Calcium 8.3 L 8.2 L Phosphorus Magnesium Iron TIBC Ferritin AST ALT Total Creatine Kinase Total Protein Albumin Vitamin B12 Folate TSH Free T4 Urine WBC (Auto) Urine Creatinine Urine Chloride Urine Total Protein CSF VDRL Lymph Enumerat CD4/CD8 Absolute CD3 Count % CD4 Cells Absolute CD4 Count % CD8 Cells Absolute CD19 Count T.pallidum Ab (FTA-ABS) HIV-1 RNA PCR copies/ml HIV-1 RNA (PCR) log Miscellaneous Test 10/10/18 10/10/18 10/10/18 08:09 08:35 10:54 WBC 1.1 L* RBC 3.16 L Hgb 9.6 L Hct 28.8 L RDW 21.2 H Plt Count Seg Neuts % (Manual) 27.0 L Lymphocytes % (Manual) Monocytes % (Manual) 9.0 H Eosinophils % (Manual) 18.0 H Basophils % (Manual) 12.0 H Nucleated RBC % Seg Neutrophils # Man 0.3 L Abs Lymphs (Manual) Lymphocytes # (Manual) 0.3 L Basophils # (Manual) PT 16.0 H INR 1.20 H APTT Heparin Anti-Xa Level POC ABG pH POC ABG pCO2 POC ABG pO2 Sodium Potassium 5.5 H Chloride Carbon Dioxide 20 L BUN 83 H Creatinine 5.5 H Glucose 119 H POC Glucose Lactic Acid Calcium Phosphorus Magnesium Iron TIBC Ferritin AST ALT Total Creatine Kinase Total Protein Albumin Vitamin B12 Folate TSH Free T4 Urine WBC (Auto) Urine Creatinine Urine Chloride Urine Total Protein CSF VDRL Lymph Enumerat CD4/CD8 Absolute CD3 Count % CD4 Cells Absolute CD4 Count % CD8 Cells Absolute CD19 Count T.pallidum Ab (FTA-ABS) HIV-1 RNA PCR copies/ml HIV-1 RNA (PCR) log Miscellaneous Test 10/10/18 10/10/18 10/11/18 Unknown Unknown 05:20 WBC 1.2 L* RBC 2.89 L Hgb 8.7 L Hct 26.0 L RDW 20.1 H Plt Count Seg Neuts % (Manual) Lymphocytes % (Manual) 8.0 L Monocytes % (Manual) 12.0 H Eosinophils % (Manual) 24.0 H Basophils % (Manual) 4.0 H Nucleated RBC % Seg Neutrophils # Man 0.6 L Abs Lymphs (Manual) Lymphocytes # (Manual) 0.1 L Basophils # (Manual) PT INR APTT Heparin Anti-Xa Level POC ABG pH POC ABG pCO2 POC ABG pO2 Sodium Potassium Chloride Carbon Dioxide BUN Creatinine Glucose POC Glucose Lactic Acid Calcium Phosphorus Magnesium Iron TIBC Ferritin AST ALT Total Creatine Kinase Total Protein Albumin Vitamin B12 Folate TSH Free T4 Urine WBC (Auto) Urine Creatinine Urine Chloride Urine Total Protein CSF VDRL Reactive 1:2 H Lymph Enumerat CD4/CD8 Absolute CD3 Count % CD4 Cells Absolute CD4 Count % CD8 Cells Absolute CD19 Count T.pallidum Ab (FTA-ABS) HIV-1 RNA PCR copies/ml HIV-1 RNA (PCR) log Miscellaneous Test Flexitest 1 H 10/11/18 10/11/18 10/11/18 05:20 05:40 05:40 WBC RBC Hgb Hct RDW Plt Count Seg Neuts % (Manual) Lymphocytes % (Manual) Monocytes % (Manual) Eosinophils % (Manual) Basophils % (Manual) Nucleated RBC % Seg Neutrophils # Man Abs Lymphs (Manual) Lymphocytes # (Manual) Basophils # (Manual) PT INR APTT Heparin Anti-Xa Level POC ABG pH POC ABG pCO2 POC ABG pO2 Sodium Potassium Chloride Carbon Dioxide 20 L BUN 102 H Creatinine 6.7 H Glucose POC Glucose Lactic Acid Calcium 8.3 L Phosphorus Magnesium Iron TIBC Ferritin AST ALT Total Creatine Kinase Total Protein Albumin Vitamin B12 Folate TSH Free T4 Urine WBC (Auto) 8.0 H Urine Creatinine 57.5 H Urine Chloride 35.1 L Urine Total Protein 44 H CSF VDRL Lymph Enumerat CD4/CD8 Absolute CD3 Count % CD4 Cells Absolute CD4 Count % CD8 Cells Absolute CD19 Count T.pallidum Ab (FTA-ABS) HIV-1 RNA PCR copies/ml HIV-1 RNA (PCR) log Miscellaneous Test 10/11/18 10/12/18 10/12/18 16:41 03:30 03:30 WBC 0.9 L* RBC 2.78 L Hgb 8.3 L Hct 25.1 L RDW 19.9 H Plt Count Seg Neuts % (Manual) Lymphocytes % (Manual) Monocytes % (Manual) Eosinophils % (Manual) 20.0 H Basophils % (Manual) Nucleated RBC % Seg Neutrophils # Man 0.5 L Abs Lymphs (Manual) Lymphocytes # (Manual) 0.3 L Basophils # (Manual) PT INR APTT Heparin Anti-Xa Level POC ABG pH 7.318 L POC ABG pCO2 POC ABG pO2 Sodium Potassium Chloride Carbon Dioxide 18 L BUN 111 H Creatinine 7.3 H Glucose POC Glucose Lactic Acid Calcium 7.9 L Phosphorus Magnesium Iron TIBC Ferritin AST ALT Total Creatine Kinase Total Protein Albumin Vitamin B12 Folate TSH Free T4 Urine WBC (Auto) Urine Creatinine Urine Chloride Urine Total Protein CSF VDRL Lymph Enumerat CD4/CD8 Absolute CD3 Count % CD4 Cells Absolute CD4 Count % CD8 Cells Absolute CD19 Count T.pallidum Ab (FTA-ABS) HIV-1 RNA PCR copies/ml HIV-1 RNA (PCR) log Miscellaneous Test 10/12/18 10/13/18 10/13/18 13:30 04:00 04:05 WBC 1.0 L* RBC 2.68 L Hgb 8.1 L Hct 24.3 L RDW 19.7 H Plt Count Seg Neuts % (Manual) 36.7 L Lymphocytes % (Manual) Monocytes % (Manual) Eosinophils % (Manual) 16.7 H Basophils % (Manual) 16.7 H Nucleated RBC % Seg Neutrophils # Man 0.4 L Abs Lymphs (Manual) Lymphocytes # (Manual) 0.2 L Basophils # (Manual) 0.2 H PT INR APTT Heparin Anti-Xa Level POC ABG pH 7.336 L POC ABG pCO2 31.5 L POC ABG pO2 122 H Sodium Potassium Chloride Carbon Dioxide 17 L BUN 118 H Creatinine 7.8 H Glucose 102 H POC Glucose Lactic Acid Calcium 7.8 L Phosphorus Magnesium Iron TIBC Ferritin AST ALT Total Creatine Kinase Total Protein Albumin Vitamin B12 Folate TSH Free T4 Urine WBC (Auto) Urine Creatinine Urine Chloride Urine Total Protein CSF VDRL Lymph Enumerat CD4/CD8 Absolute CD3 Count % CD4 Cells Absolute CD4 Count % CD8 Cells Absolute CD19 Count T.pallidum Ab (FTA-ABS) HIV-1 RNA PCR copies/ml HIV-1 RNA (PCR) log Miscellaneous Test 10/13/18 10/14/18 10/14/18 18:44 00:01 05:20 WBC RBC Hgb Hct RDW Plt Count Seg Neuts % (Manual) Lymphocytes % (Manual) Monocytes % (Manual) Eosinophils % (Manual) Basophils % (Manual) Nucleated RBC % Seg Neutrophils # Man Abs Lymphs (Manual) Lymphocytes # (Manual) Basophils # (Manual) PT INR APTT Heparin Anti-Xa Level POC ABG pH POC ABG pCO2 POC ABG pO2 Sodium Potassium Chloride Carbon Dioxide BUN Creatinine Glucose POC Glucose 141 H 134 H 171 H Lactic Acid Calcium Phosphorus Magnesium Iron TIBC Ferritin AST ALT Total Creatine Kinase Total Protein Albumin Vitamin B12 Folate TSH Free T4 Urine WBC (Auto) Urine Creatinine Urine Chloride Urine Total Protein CSF VDRL Lymph Enumerat CD4/CD8 Absolute CD3 Count % CD4 Cells Absolute CD4 Count % CD8 Cells Absolute CD19 Count T.pallidum Ab (FTA-ABS) HIV-1 RNA PCR copies/ml HIV-1 RNA (PCR) log Miscellaneous Test 10/14/18 10/14/18 10/14/18 09:39 09:40 11:37 WBC RBC Hgb Hct RDW Plt Count Seg Neuts % (Manual) Lymphocytes % (Manual) Monocytes % (Manual) Eosinophils % (Manual) Basophils % (Manual) Nucleated RBC % Seg Neutrophils # Man Abs Lymphs (Manual) Lymphocytes # (Manual) Basophils # (Manual) PT INR APTT Heparin Anti-Xa Level POC ABG pH POC ABG pCO2 POC ABG pO2 Sodium 147 H Potassium 3.4 L Chloride 108.1 H Carbon Dioxide 16 L BUN 124 H Creatinine 6.7 H Glucose 144 H POC Glucose 164 H Lactic Acid Calcium 7.8 L Phosphorus 8.50 H Magnesium Iron TIBC Ferritin AST ALT Total Creatine Kinase Total Protein Albumin Vitamin B12 Folate TSH Free T4 Urine WBC (Auto) Urine Creatinine Urine Chloride Urine Total Protein CSF VDRL Lymph Enumerat CD4/CD8 Absolute CD3 Count % CD4 Cells Absolute CD4 Count % CD8 Cells Absolute CD19 Count T.pallidum Ab (FTA-ABS) HIV-1 RNA PCR copies/ml HIV-1 RNA (PCR) log Miscellaneous Test 10/14/18 10/14/1819 Unknown Unknown 00:05 WBC 0.5 L* RBC 2.80 L Hgb 8.2 L Hct 25.2 L RDW 19.7 H Plt Count Seg Neuts % (Manual) Lymphocytes % (Manual) 10.0 L Monocytes % (Manual) Eosinophils % (Manual) 10.0 H Basophils % (Manual) Nucleated RBC % Seg Neutrophils # Man 0.4 L Abs Lymphs (Manual) Lymphocytes # (Manual) 0.1 L Basophils # (Manual) PT INR APTT Heparin Anti-Xa Level POC ABG pH POC ABG pCO2 POC ABG pO2 Sodium Potassium Chloride Carbon Dioxide 13 L BUN 126 H Creatinine 7.7 H Glucose 153 H POC Glucose 190 H Lactic Acid Calcium 7.8 L Phosphorus Magnesium Iron TIBC Ferritin AST ALT Total Creatine Kinase Total Protein Albumin Vitamin B12 Folate TSH Free T4 Urine WBC (Auto) Urine Creatinine Urine Chloride Urine Total Protein CSF VDRL Lymph Enumerat CD4/CD8 Absolute CD3 Count % CD4 Cells Absolute CD4 Count % CD8 Cells Absolute CD19 Count T.pallidum Ab (FTA-ABS) HIV-1 RNA PCR copies/ml HIV-1 RNA (PCR) log Miscellaneous Test 10/15/18 10/15/18 10/15/18 04:15 04:15 05:03 WBC 0.8 L* RBC 2.73 L Hgb 8.2 L Hct 24.4 L RDW 18.8 H Plt Count Seg Neuts % (Manual) Lymphocytes % (Manual) Monocytes % (Manual) Eosinophils % (Manual) Basophils % (Manual) Nucleated RBC % Seg Neutrophils # Man Abs Lymphs (Manual) Lymphocytes # (Manual) Basophils # (Manual) PT INR APTT Heparin Anti-Xa Level POC ABG pH POC ABG pCO2 POC ABG pO2 Sodium 148 H Potassium 2.9 L* Chloride 108.5 H Carbon Dioxide 17 L BUN 127 H Creatinine 6.1 H Glucose 154 H POC Glucose 170 H Lactic Acid Calcium 7.7 L Phosphorus Magnesium Iron TIBC Ferritin AST ALT Total Creatine Kinase Total Protein 6.0 L Albumin 2.3 L Vitamin B12 Folate TSH Free T4 Urine WBC (Auto) Urine Creatinine Urine Chloride Urine Total Protein CSF VDRL Lymph Enumerat CD4/CD8 Absolute CD3 Count % CD4 Cells Absolute CD4 Count % CD8 Cells Absolute CD19 Count T.pallidum Ab (FTA-ABS) HIV-1 RNA PCR copies/ml HIV-1 RNA (PCR) log Miscellaneous Test 10/15/18 10/15/18 10/15/18 12:23 17:42 17:49 WBC RBC Hgb Hct RDW Plt Count Seg Neuts % (Manual) Lymphocytes % (Manual) Monocytes % (Manual) Eosinophils % (Manual) Basophils % (Manual) Nucleated RBC % Seg Neutrophils # Man Abs Lymphs (Manual) Lymphocytes # (Manual) Basophils # (Manual) PT INR APTT Heparin Anti-Xa Level POC ABG pH POC ABG pCO2 POC ABG pO2 Sodium 146 H Potassium 3.0 L Chloride 109.4 H Carbon Dioxide 16 L BUN 124 H Creatinine 5.6 H Glucose 162 H POC Glucose 180 H 173 H Lactic Acid Calcium 7.5 L Phosphorus Magnesium Iron TIBC Ferritin AST ALT Total Creatine Kinase Total Protein Albumin Vitamin B12 Folate TSH Free T4 Urine WBC (Auto) Urine Creatinine Urine Chloride Urine Total Protein CSF VDRL Lymph Enumerat CD4/CD8 Absolute CD3 Count % CD4 Cells Absolute CD4 Count % CD8 Cells Absolute CD19 Count T.pallidum Ab (FTA-ABS) HIV-1 RNA PCR copies/ml HIV-1 RNA (PCR) log Miscellaneous Test 10/15/18 10/16/18 10/16/18 23:56 05:37 07:50 WBC 1.1 L* RBC 2.70 L Hgb 8.0 L Hct 24.4 L RDW 18.9 H Plt Count Seg Neuts % (Manual) Lymphocytes % (Manual) Monocytes % (Manual) 8.0 H Eosinophils % (Manual) Basophils % (Manual) Nucleated RBC % Seg Neutrophils # Man 0.7 L Abs Lymphs (Manual) Lymphocytes # (Manual) 0.2 L Basophils # (Manual) PT INR APTT Heparin Anti-Xa Level POC ABG pH POC ABG pCO2 POC ABG pO2 Sodium Potassium Chloride Carbon Dioxide BUN Creatinine Glucose POC Glucose 164 H 152 H Lactic Acid Calcium Phosphorus Magnesium Iron TIBC Ferritin AST ALT Total Creatine Kinase Total Protein Albumin Vitamin B12 Folate TSH Free T4 Urine WBC (Auto) Urine Creatinine Urine Chloride Urine Total Protein CSF VDRL Lymph Enumerat CD4/CD8 Absolute CD3 Count % CD4 Cells Absolute CD4 Count % CD8 Cells Absolute CD19 Count T.pallidum Ab (FTA-ABS) HIV-1 RNA PCR copies/ml HIV-1 RNA (PCR) log Miscellaneous Test 10/16/18 10/16/18 10/16/18 07:50 12:35 18:00 WBC RBC Hgb Hct RDW Plt Count Seg Neuts % (Manual) Lymphocytes % (Manual) Monocytes % (Manual) Eosinophils % (Manual) Basophils % (Manual) Nucleated RBC % Seg Neutrophils # Man Abs Lymphs (Manual) Lymphocytes # (Manual) Basophils # (Manual) PT INR APTT Heparin Anti-Xa Level POC ABG pH POC ABG pCO2 POC ABG pO2 Sodium 147 H Potassium 3.0 L Chloride Carbon Dioxide 15 L BUN 143 H Creatinine 6.2 H Glucose 182 H POC Glucose 122 H 160 H Lactic Acid Calcium 8.1 L Phosphorus Magnesium Iron TIBC Ferritin AST ALT Total Creatine Kinase Total Protein Albumin Vitamin B12 Folate TSH Free T4 Urine WBC (Auto) Urine Creatinine Urine Chloride Urine Total Protein CSF VDRL Lymph Enumerat CD4/CD8 Absolute CD3 Count % CD4 Cells Absolute CD4 Count % CD8 Cells Absolute CD19 Count T.pallidum Ab (FTA-ABS) HIV-1 RNA PCR copies/ml HIV-1 RNA (PCR) log Miscellaneous Test 10/16/18 10/17/18 10/17/18 23:32 05:03 11:32 WBC RBC Hgb Hct RDW Plt Count Seg Neuts % (Manual) Lymphocytes % (Manual) Monocytes % (Manual) Eosinophils % (Manual) Basophils % (Manual) Nucleated RBC % Seg Neutrophils # Man Abs Lymphs (Manual) Lymphocytes # (Manual) Basophils # (Manual) PT INR APTT Heparin Anti-Xa Level POC ABG pH POC ABG pCO2 POC ABG pO2 Sodium Potassium Chloride Carbon Dioxide BUN Creatinine Glucose POC Glucose 131 H 112 H 149 H Lactic Acid Calcium Phosphorus Magnesium Iron TIBC Ferritin AST ALT Total Creatine Kinase Total Protein Albumin Vitamin B12 Folate TSH Free T4 Urine WBC (Auto) Urine Creatinine Urine Chloride Urine Total Protein CSF VDRL Lymph Enumerat CD4/CD8 Absolute CD3 Count % CD4 Cells Absolute CD4 Count % CD8 Cells Absolute CD19 Count T.pallidum Ab (FTA-ABS) HIV-1 RNA PCR copies/ml HIV-1 RNA (PCR) log Miscellaneous Test 10/19/18 10/19/18 10/19/18 04:00 06:15 14:54 WBC 0.7 L* 0.7 L* RBC 2.77 L 2.77 L Hgb 7.9 L 8.3 L Hct 24.7 L 24.6 L RDW 19.4 H 19.2 H Plt Count 112 L 105 L Seg Neuts % (Manual) Lymphocytes % (Manual) Monocytes % (Manual) 17.0 H 16.0 H Eosinophils % (Manual) 6.0 H Basophils % (Manual) 2.0 H Nucleated RBC % Seg Neutrophils # Man 0.3 L 0.3 L Abs Lymphs (Manual) Lymphocytes # (Manual) 0.2 L 0.2 L Basophils # (Manual) PT INR APTT Heparin Anti-Xa Level POC ABG pH POC ABG pCO2 POC ABG pO2 Sodium Potassium 2.9 L* Chloride Carbon Dioxide 19 L BUN 107 H Creatinine 5.9 H Glucose POC Glucose Lactic Acid Calcium 7.9 L Phosphorus Magnesium Iron TIBC Ferritin AST 54 H ALT Total Creatine Kinase Total Protein 5.7 L Albumin 2.5 L Vitamin B12 Folate TSH Free T4 Urine WBC (Auto) Urine Creatinine Urine Chloride Urine Total Protein CSF VDRL Lymph Enumerat CD4/CD8 Absolute CD3 Count % CD4 Cells Absolute CD4 Count % CD8 Cells Absolute CD19 Count T.pallidum Ab (FTA-ABS) HIV-1 RNA PCR copies/ml HIV-1 RNA (PCR) log Miscellaneous Test 10/20/18 10/20/18 10/21/18 05:34 12:17 06:00 WBC RBC Hgb Hct RDW Plt Count Seg Neuts % (Manual) Lymphocytes % (Manual) Monocytes % (Manual) Eosinophils % (Manual) Basophils % (Manual) Nucleated RBC % Seg Neutrophils # Man Abs Lymphs (Manual) Lymphocytes # (Manual) Basophils # (Manual) PT INR APTT Heparin Anti-Xa Level POC ABG pH POC ABG pCO2 33.3 L POC ABG pO2 107 H Sodium Potassium 3.0 L Chloride Carbon Dioxide 20 L BUN 94 H Creatinine 6.1 H Glucose POC Glucose 113 H Lactic Acid Calcium 7.9 L Phosphorus Magnesium Iron TIBC Ferritin AST ALT Total Creatine Kinase Total Protein Albumin Vitamin B12 Folate TSH Free T4 Urine WBC (Auto) Urine Creatinine Urine Chloride Urine Total Protein CSF VDRL Lymph Enumerat CD4/CD8 Absolute CD3 Count % CD4 Cells Absolute CD4 Count % CD8 Cells Absolute CD19 Count T.pallidum Ab (FTA-ABS) HIV-1 RNA PCR copies/ml HIV-1 RNA (PCR) log Miscellaneous Test 10/23/18 10/24/18 10/24/18 14:34 04:50 04:50 WBC 0.9 L* 0.9 L* RBC 2.33 L 2.24 L Hgb 7.1 L 6.8 L Hct 21.3 L 20.7 L RDW 20.1 H 20.1 H Plt Count Seg Neuts % (Manual) Lymphocytes % (Manual) Monocytes % (Manual) 18.0 H 16.0 H Eosinophils % (Manual) Basophils % (Manual) Nucleated RBC % Seg Neutrophils # Man 0.6 L 0.5 L Abs Lymphs (Manual) Lymphocytes # (Manual) 0.2 L 0.3 L Basophils # (Manual) PT INR APTT Heparin Anti-Xa Level POC ABG pH POC ABG pCO2 POC ABG pO2 Sodium Potassium 3.0 L Chloride Carbon Dioxide 19 L BUN 94 H Creatinine 7.3 H Glucose POC Glucose Lactic Acid Calcium 8.0 L Phosphorus Magnesium Iron TIBC Ferritin AST ALT Total Creatine Kinase Total Protein Albumin Vitamin B12 Folate TSH Free T4 Urine WBC (Auto) Urine Creatinine Urine Chloride Urine Total Protein CSF VDRL Lymph Enumerat CD4/CD8 Absolute CD3 Count % CD4 Cells Absolute CD4 Count % CD8 Cells Absolute CD19 Count T.pallidum Ab (FTA-ABS) HIV-1 RNA PCR copies/ml HIV-1 RNA (PCR) log Miscellaneous Test Allied health notes reviewed: nursing
[2018-10-24] MEDS ORDERED: NACL 0.9% 500 ML 500 ML IV NR (11:07)
--- NOTE | 2018-10-24 11:33 | Progress Note ---
Assessment and Plan Cultures: 09/11/2018 blood culture: no growth 09/13/2018 serum cryptococcus ag neg 09/14/2018 CSF cryptococcus ag neg 09/14/2018 stool Nona 09/15/2018 stool +Giardia ag 09/19/2018 CSF cryptococcus ag neg 09/21/2018 tracheal aspirate culture: Nona albicans 09/23/2018 blood culture: No growth 09/23/2018 Fungal blood culture: no growth thus far 10/09/2018 blood culture: No growth A/P: 33 y/o male with no PMH; admitted on 09/11/2018 due to 4 days-AMS/behavioral changes, nausea, vomiting, diarrhea, weight loss and cough: 1) Low grade fevers: resolved ? likely IRIS related (ART started on 09/30) versus NGT-associated sinusitis/mastoiditis versus CMV encephalitis. shock resolved. Completed 10 days of Ceftriaxone, off since 10/03/2018. 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 WBC remains low could be from CMV v/s ganciclovir. Clinically better - CMV DNA PCR 09/16/2018 is 1,058,978, 6 log - CMV DNA PCR 09/26/2018 is 710K, 5.85 log - CMV DNA PCR 10/03/2018 is 262K, 5.4 log 3) Acute respiratory failure: still on the vent minimal settings, mainly due to mental status issues. PJP DFA negative. CXR stable without pneumonia. Awaiting trach and PEG tomorrow. 4) Acute encephalopathy: slighltly better; possibly from neurosyphilis and CMV confirmed encephalitis v/s metabolic etiology. Of note, MRI did not show ventriculitis. CSF YAYO virus DNA PCR neg. Toxo IgG negative. He has received 20 days of Pen G IV and Ganciclovir with minimal improvement, still somnolent and nystagmus noted ? neurosyphilis treatement failure ? other etiologies like metabolic, CVA. Discussed with neuro Dr Nazario EEG x 2 no epileptic activity - "Up to 4 EEGs over several months may be needed to capture interictal epileptiform activity". - repeat LP 10/10/3018 WBC 10, RBC 22K (traumatic), glu 47, prot 84 from 194, VDRL reactive 1:2 - Seizures reported on 10/09-10/10 - CT head done showed mild atrophy. No acute intracranial abnormalities. Paranasal sinus disease and new opacification of multiple mastoid air cells on the right and a few on the left suggesting acute mastoiditis. - MRI brain repeat 10/10 significant bilateral mastoiditis, generalized brain atrophy and stable paranasal sinusitis - CSF CMV DNA PCR on 10/10/2018 was 43,564 4.6 log 5) Neurosyphilis: CSF VDRL positive, off Ceftriaxone and back on IV Penicillin completed 21 days 6) Diarrhea: likely due to Giardiasis as Giardia antigen positive in stool, in immunocompromised patient. Completed several days of Flagyl, stopped on 10/03/2018. 7) Oral candidiasis: on fluconazole, will need to continue as prophylaxis till immune reconstitution. Will decrease dose to 100 mg daily. 8) A.fib: cardiology following. On Amiodarone. 9) HIV/AIDS: newly diagnosed. Risk factor is MSM behavior. CD4=4. VL=50,700. 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 We started him on ART on 09/30/2018, watch closely for IRIS. F/U HIV PCR and CD4 count from 10/21/2018. 10) Neutropenia: likely from HIV/CMV myelosuppression. Also probably worse from ganciclovir. r/o disseminated MAC, thus far cultures negative. s/p neupogen 1 dose on 10/05/2018 11) Acute renal failure: CrCl <10. started on HD 12) NGT-associated sinusitis/mastoiditis, fully treated for 7 days. NGT changed to OGT. Recs: - continue IV Ganciclovir D31 at 1.5 mg/kg 3 times a week - renally adjusted, continue till CMV PCR is <200 - renal on board - all antibiotics are renally adjusted - f/u serum CMV DNA PCR from 10/17. repeat CMV DNA PCR ordered today - continue atovaquone - azithromycin prophylaxis discontinued - decrease fluconazole dose to 100 mg daily PO as prophylaxis - continue HAART: given renal function issues, discontinued Tenofovir on 10/21/2018 and switched to Darunavir + Norvir. Continue Emtricitabine and dolutegravir. - f/u HIV RNA PCR and CD4 count along with HIV Genotype to hopefully also look at any archived Yana - monitor daily CBC, BMP Maurizio Lopez MD [facility] C: [phone] O: [phone] F: [phone] Subjective Date of service: 10/24/18 Principal diagnosis: low wbc Interval history: Remains afebrile. On Vent. Tolerating HD. Opening eyes, occasionally follows commands. Objective - Exam Narrative Exam: Physical Exam: Constitutional: intubated, on the event, awake and following commands Head, Ears, Nose: Normocephalic, atraumatic. Eyes: Conjunctivae/corneas clear. No icterus. No ptosis. Neck: Supple, no meningeal signs Oral: intubated. Cardiovascular: S1, S2 normal. Respiratory: Good air entry, clear to auscultation bilaterally GI: Soft, bowel sounds normal. No peritoneal signs. Musculoskeletal: No pedal edema, no cyanosis. Skin: No rash or abscess Hem/Lymphatic: No palpable cervical or supraclavicular nodes. No lymphangitis Psych: calm, without agitation Neurological: intubated, on the vent, awake, following basic commands - Constitutional Vitals: Vital Signs Temp Pulse Resp BP Pulse Ox 97.9 F 92 H 22 133/80 100 10/24/18 10:15 10/24/18 11:09 10/24/18 11:09 10/24/18 11:09 10/24/18 11:09 Temperature -Last 24 Hours Temperature 97.9 F Temperature 97.9 F Temperature 99.1 F Temperature 99.5 F Temperature 100.3 F Temperature 98.9 F Temperature 98.6 F - Labs CBC & Chem 7: 10/24/18 04:50 10/24/18 04:50 Labs: Abnormal lab results 10/23/18 10/24/18 10/24/18 Range/Units 14:34 04:50 04:50 WBC 0.9 L* 0.9 L* (4.5-11.0) K/mm3 RBC 2.33 L 2.24 L (3.65-5.03) M/mm3 Hgb 7.1 L 6.8 L (11.8-15.2) gm/dl Hct 21.3 L 20.7 L (35.5-45.6) % RDW 20.1 H 20.1 H (13.2-15.2) % Monocytes % (Manual) 18.0 H 16.0 H (0.0-7.3) % Seg Neutrophils # Man 0.6 L 0.5 L (1.8-7.7) K/mm3 Lymphocytes # (Manual) 0.2 L 0.3 L (1.2-5.4) K/mm3 Potassium 3.0 L (3.6-5.0) mmol/L Carbon Dioxide 19 L (22-30) mmol/L BUN 94 H (9-20) mg/dL Creatinine 7.3 H (0.8-1.5) mg/dL Calcium 8.0 L (8.4-10.2) mg/dL
--- NOTE | 2018-10-24 11:54 | Progress Note ---
Assessment and Plan Assessment and plan: ARF - Etiology secondary to acute tubular necrosis from sepsis. - nephrology is following and he was started on hemodialysis 10/16/18 which he receives 3 times a week. Acute hypoxemic respiratory failure - Patient has pneumonia and altered mental status - Patient is intubated and on mechanical ventilation - Trach and PEG per surgery on Wednesday. Disseminated CMV viremia: -Treated with IV ganciclovir and currently he is on prophylaxis Toxic metabolic encephalopathy. 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 EEG 2 with no epileptic activity. Repeat LP completed on 10/10/2018 was VDRL reactive. A. fib with RVR. Converted to NSR. cont Amiodarone and metoprolol. Amiodarone decreased to 200 mg per cardiology Rate controlled Neurosyphilis and CMV encephalitis: CSF VDRL positive, patient finished a course of IV penicillin 21 days. CSF CMV DNA PCR on 10/10 was 43,564 4.6 log Diarrhea. Resolved, etiology likely secondary to Giardia. Giardia antigen positive in stool. Completed a course of Flagyl. Oral candidiasis. Fluconazole HIV/AIDS. New Diagnosis. Continue on HAART per ID continue atovaquone and azithromycin prophylaxis Neutropenia. 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 Additional dose of Neupogen per hematology. NGT associated sinusitis/mastoiditis. Patient fully treated. Continue OGT. MRI brain repeated on 10/10 reveals significant bilateral mastoiditis. Prognosis poor. The high probability of a clinically significant, sudden or life threatening deterioration of the [neurological, respiratory and cardiac] system(s) required my full and direct attention, intervention and personal management. The aggregate critical care time was [33] minutes. This time is in addition to time spent performing reported procedures but includes the following: [x] Data Review and interpretation [x] Patient assessment and monitoring of vital signs [x] Documentation [x] Medication orders and management History Interval history: Patient is 33 yo initially presented with diarrhea, found to have pneumonia, sepsis, HIV/AIDS(new diagnosis) with CD4 count of 4. He was started on abx for PJP. His mental status has worsened with confusion, lethargy. LP done . He was diagnosed with neurosyphilis. Started on Penicillin. Closest family is sister in [place], and dr. Baltazar spoke to her several times about diagnosis but did not tell her about HIV/AIDS because of patient confidentiality. The patient decompensated on 09/20/18 with acute hypoxemic respiratory failure and worsening toxic metabolic encephalopathy requiring transfer to ICU and intubation. He now remains on mechanical ventilation. The patient was also noted to develop SVT requiring amiodarone drip as well as heparin drip. Severe Sepsis. Etiology secondary to bacterial pneumonia +/- gastroenteritis with newly diagnosed with HIV. Fevers have re-emerged. Repeat blood cx per ID. the patient was initiated on hemodialysis 10/16/18 for renal failure secondary to ATN from severe sepsis. Hospitalist Physical - Constitutional Vitals: Temp Pulse Resp BP Pulse Ox 97.9 F 92 H 22 133/80 100 10/24/18 10:15 10/24/18 11:09 10/24/18 11:09 10/24/18 11:09 10/24/18 11:09 General appearance: Present: mild distress, other (orally intubated, minimal response--right side spontaneous movement) Results - Labs CBC & Chem 7: 10/24/18 04:50 10/24/18 04:50 Labs: Laboratory Last Values WBC 0.9 K/mm3 (4.5-11.0) L* 10/24/18 04:50 RBC 2.24 M/mm3 (3.65-5.03) L 10/24/18 04:50 Hgb 6.8 gm/dl (11.8-15.2) L 10/24/18 04:50 Hct 20.7 % (35.5-45.6) L 10/24/18 04:50 MCV 92 fl (84-94) 10/24/18 04:50 MCH 31 pg (28-32) 10/24/18 04:50 MCHC 33 % (32-34) 10/24/18 04:50 RDW 20.1 % (13.2-15.2) H 10/24/18 04:50 Plt Count 147 K/mm3 (140-440) 10/24/18 04:50 Brooke % (Auto) Government Teacher 09/29/18 05:00 Eos % (Auto) Government Teacher 10/13/18 04:05 Baso % (Auto) Government Teacher 10/13/18 04:05 Add Manual Diff Complete 10/24/18 04:50 Total Counted 50 10/24/18 04:50 Seg Neutrophils % Government Teacher 10/16/18 07:50 Seg Neuts % (Manual) 56.0 % (40.0-70.0) 10/24/18 04:50 Band Neutrophils % 0 % 10/24/18 04:50 Lymphocytes % (Manual) 28.0 % (13.4-35.0) 10/24/18 04:50 Reactive Lymphs % (Man) 0 % 10/24/18 04:50 Monocytes % (Manual) 16.0 % (0.0-7.3) H 10/24/18 04:50 Eosinophils % (Manual) 0 % (0.0-4.3) 10/24/18 04:50 Basophils % (Manual) 0 % (0.0-1.8) 10/24/18 04:50 Metamyelocytes % 0 % 10/24/18 04:50 Myelocytes % 0 % 10/24/18 04:50 Promyelocytes % 0 % 10/24/18 04:50 Blast Cells % 0 % 10/24/18 04:50 Nucleated RBC % Not Reportable 10/24/18 04:50 Seg Neutrophils # Man 0.5 K/mm3 (1.8-7.7) L 10/24/18 04:50 Band Neutrophils # 0.0 K/mm3 10/24/18 04:50 Abs Lymphs (Manual) 309 cells/uL (850-3900) L 09/13/18 12:29 Lymphocytes # (Manual) 0.3 K/mm3 (1.2-5.4) L 10/24/18 04:50 Abs React Lymphs (Man) 0.0 K/mm3 10/24/18 04:50 Monocytes # (Manual) 0.1 K/mm3 (0.0-0.8) 10/24/18 04:50 Eosinophils # (Manual) 0.0 K/mm3 (0.0-0.4) 10/24/18 04:50 Basophils # (Manual) 0.0 K/mm3 (0.0-0.1) 10/24/18 04:50 Metamyelocytes # 0.0 K/mm3 10/24/18 04:50 Myelocytes # 0.0 K/mm3 10/24/18 04:50 Promyelocytes # 0.0 K/mm3 10/24/18 04:50 Blast Cells # 0.0 K/mm3 10/24/18 04:50 WBC Morphology Not Reportable 10/24/18 04:50 Hypersegmented Neuts Not Reportable 10/24/18 04:50 Hyposegmented Neuts Not Reportable 10/24/18 04:50 Hypogranular Neuts Not Reportable 10/24/18 04:50 Smudge Cells Not Reportable 10/24/18 04:50 Toxic Granulation Not Reportable 10/24/18 04:50 Toxic Vacuolation Not Reportable 10/24/18 04:50 Dohle Bodies Not Reportable 10/24/18 04:50 Pelger-Huet Anomaly Not Reportable 10/24/18 04:50 Giovanna Rods Not Reportable 10/24/18 04:50 Platelet Estimate Appears normal 10/24/18 04:50 Clumped Platelets Not Reportable 10/24/18 04:50 Plt Clumps, EDTA Not Reportable 10/24/18 04:50 Large Platelets Not Reportable 10/24/18 04:50 Giant Platelets Not Reportable 10/24/18 04:50 Platelet Satelliting Not Reportable 10/24/18 04:50 Plt Morphology Comment Not Reportable 10/24/18 04:50 RBC Morphology Not Reportable 10/24/18 04:50 Dimorphic RBCs Not Reportable 10/24/18 04:50 Polychromasia Not Reportable 10/24/18 04:50 Hypochromasia 1+ 10/24/18 04:50 Poikilocytosis Not Reportable 10/24/18 04:50 Anisocytosis 1+ 10/24/18 04:50 Microcytosis Not Reportable 10/24/18 04:50 Macrocytosis Not Reportable 10/24/18 04:50 Spherocytes Not Reportable 10/24/18 04:50 Pappenheimer Bodies Not Reportable 10/24/18 04:50 Sickle Cells Not Reportable 10/24/18 04:50 Target Cells Not Reportable 10/24/18 04:50 Tear Drop Cells Not Reportable 10/24/18 04:50 Ovalocytes 1+ 10/24/18 04:50 Stomatocytes 1+ 09/29/18 05:00 Helmet Cells Not Reportable 10/24/18 04:50 [place] Bodies Not Reportable 10/24/18 04:50 [place] Rings Not Reportable 10/24/18 04:50 Dioni Cells Not Reportable 10/24/18 04:50 Bite Cells Not Reportable 10/24/18 04:50 Crenated Cell Not Reportable 10/24/18 04:50 Elliptocytes Not Reportable 10/24/18 04:50 Acanthocytes (Spur) Not Reportable 10/24/18 04:50 Rouleaux Not Reportable 10/24/18 04:50 Hemoglobin C Crystals Not Reportable 10/24/18 04:50 Schistocytes Not Reportable 10/24/18 04:50 Malaria parasites Not Reportable 10/24/18 04:50 Kieran Bodies Not Reportable 10/24/18 04:50 Hem Pathologist Commnt No 10/24/18 04:50 PT 16.0 Sec. (12.2-14.9) H 10/10/18 08:09 INR 1.20 (0.87-1.13) H 10/10/18 08:09 APTT 40.9 Sec. (24.2-36.6) H 09/21/18 15:00 Heparin Anti-Xa Level 0.35 U.I./ml (0.3-0.7) 10/05/18 10:19 POC ABG pH 7.399 (7.35-7.45) 10/20/18 12:17 POC ABG pCO2 33.3 (35-45) L 10/20/18 12:17 POC ABG pO2 107 (80-105) H 10/20/18 12:17 POC ABG HCO3 20.6 10/20/18 12:17 POC ABG Total CO2 22 10/20/18 12:17 POC ABG O2 Sat 98 10/20/18 12:17 POC ABG Base Excess -4 10/20/18 12:17 FiO2 25 % 10/20/18 12:17 Sodium 142 mmol/L (137-145) 10/24/18 04:50 Potassium 3.0 mmol/L (3.6-5.0) L 10/24/18 04:50 Chloride 101.6 mmol/L (98-107) 10/24/18 04:50 Carbon Dioxide 19 mmol/L (22-30) L 10/24/18 04:50 Anion Gap 24 mmol/L 10/24/18 04:50 BUN 94 mg/dL (9-20) H 10/24/18 04:50 Creatinine 7.3 mg/dL (0.8-1.5) H 10/24/18 04:50 Estimated GFR 11 ml/min 10/24/18 04:50 BUN/Creatinine Ratio 13 % 10/24/18 04:50 Glucose 94 mg/dL (75-100) 10/24/18 04:50 POC Glucose 101 (70-105) 10/22/18 12:01 Lactic Acid 0.90 mmol/L (0.7-2.0) 09/11/18 20:17 Calcium 8.0 mg/dL (8.4-10.2) L 10/24/18 04:50 Phosphorus 8.50 mg/dL (2.5-4.5) H 10/14/18 09:40 Magnesium 2.10 mg/dL (1.7-2.3) 10/14/18 09:40 Iron 35 ug/dL (49-181) L 10/06/18 09:40 TIBC 157 mcg/dL (250-450) L 10/06/18 09:40 Ferritin 1126.0 ng/mL (13.0-400.0) H 10/06/18 09:40 Total Bilirubin 0.30 mg/dL (0.1-1.2) 10/19/18 06:15 Direct Bilirubin < 0.2 mg/dL (0-0.2) 09/13/18 07:31 AST 54 units/L (5-40) H 10/19/18 06:15 ALT 36 units/L (7-56) 10/19/18 06:15 Alkaline Phosphatase 57 units/L (35-129) 10/19/18 06:15 Ammonia 27.0 umol/L (25-60) 10/03/18 13:23 Total Creatine Kinase 113 units/L (55-170) 10/11/18 05:20 CK-MB (CK-2) 2.6 ng/mL (0.0-4.0) 10/11/18 05:20 CK-MB (CK-2) Rel Index 0.5 (0-4) 09/21/18 04:25 NT-Pro-B Natriuret Pep 145.9 pg/mL (0-450) 09/18/18 16:07 Total Protein 5.7 g/dL (6.3-8.2) L 10/19/18 06:15 Albumin 2.5 g/dL (3.9-5) L 10/19/18 06:15 Albumin/Globulin Ratio 0.8 % 10/19/18 06:15 Vitamin B12 934.5 pg/mL (211-911) H 09/16/18 11:41 Folate 6.71 ng/mL (7.3-26.0) L 10/06/18 09:40 TSH 5.190 mlU/mL (0.270-4.200) H 09/18/18 12:46 Free T4 0.75 ng/dL (0.76-1.46) L 09/18/18 12:46 Urine Color Yellow (Yellow) 10/11/18 05:40 Urine Turbidity Slightly-cloudy (Clear) 10/11/18 05:40 Urine pH 5.0 (5.0-7.0) 10/11/18 05:40 Ur Specific [place] 1.012 (1.003-1.030) 10/11/18 05:40 Urine Protein 30 mg/dl mg/dL (Negative) 10/11/18 05:40 Urine Glucose (UA) Neg mg/dL (Negative) 10/11/18 05:40 Urine Ketones Neg mg/dL (Negative) 10/11/18 05:40 Urine Blood Mod (Negative) 10/11/18 05:40 Urine Nitrite Neg (Negative) 10/11/18 05:40 Urine Bilirubin Neg (Negative) 10/11/18 05:40 Urine Urobilinogen < 2.0 mg/dL (<2.0) 10/11/18 05:40 Ur Leukocyte Esterase Neg (Negative) 10/11/18 05:40 Urine WBC (Auto) 8.0 /HPF (0.0-6.0) H 10/11/18 05:40 Urine RBC (Auto) 45.0 /HPF (0.0-6.0) 10/11/18 05:40 U Epithel Cells (Auto) 2.0 /HPF (0-13.0) 10/11/18 05:40 Urine Bacteria (Auto) 1+ /HPF (Negative) 10/11/18 05:40 Urine Mucus Few /HPF 10/11/18 05:40 Urine Creatinine 57.5 mg/dL (0.1-20.0) H 10/11/18 05:40 Protein/Creatinin Ratio 0.77 10/11/18 05:40 Urine Sodium 70 mmol/L 10/11/18 05:40 Urine Chloride 35.1 mmolL (110-250) L 10/11/18 05:40 Urine Total Protein 44 mg/dL (5-11.8) H 10/11/18 05:40 CSF Appearance Bloody 10/10/18 Unknown CSF Color Red 10/10/18 Unknown CSF WBC 10 /mm3 (1-10) 10/10/18 Unknown CSF RBC 04825 /mm3 (0-0) 10/10/18 Unknown CSF Seg Neutrophils 14.0 % (0-6) 10/10/18 Unknown CSF Lymphocytes % 44.0 % (40-80) 10/10/18 Unknown CSF Reactive Lymphs 0 % 10/10/18 Unknown CSF Monocytes % 38.0 % (15-45) 10/10/18 Unknown CSF Eosinophils % 4.0 % 10/10/18 Unknown CSF Basophils 0 % 10/10/18 Unknown CSF Pathologist Review C 10/10/18 Unknown CSF Glucose 47 mg/dL 10/10/18 Unknown CSF Total Protein 84 mg/dL 10/10/18 Unknown CSF VDRL Reactive 1:2 (Nonreactive) H 10/10/18 Unknown Vancomycin Trough 14.3 ug/mL (5.0-20.0) 09/25/18 14:45 Random Vancomycin 10.7 ug/mL (0-40.0) 10/12/18 03:30 Urine Opiates Screen Presumptive negative 09/17/18 15:52 Urine Methadone Screen Presumptive negative 09/17/18 15:52 Ur Barbiturates Screen Presumptive negative 09/17/18 15:52 Ur Phencyclidine Scrn Presumptive negative 09/17/18 15:52 Ur Amphetamines Screen Presumptive negative 09/17/18 15:52 U Benzodiazepines Scrn Presumptive negative 09/17/18 15:52 Urine Cocaine Screen Presumptive negative 09/17/18 15:52 U Marijuana (THC) Screen Presumptive negative 09/17/18 15:52 Drugs of Abuse Note Disclamer 09/17/18 15:52 Proteinase 3 (PR3) Ab <1.0 AI (<1.0) 10/12/18 09:46 Myeloperoxidase Ab <1.0 AI (<1.0) 10/12/18 09:46 Complement C3 184 mg/dL (82-185) 10/12/18 09:46 Complement C4 45 mg/dL (15-53) 10/12/18 09:46 Lymph Enumerat CD4/CD8 0.01 (0.86-5.00) L 09/13/18 12:29 % CD3 Cells 71 % (57-85) 09/13/18 12:29 Absolute CD3 Count 220 cells/uL (840-3060) L 09/13/18 12:29 % CD4 Cells 1 % (30-61) L 09/13/18 12:29 Absolute CD4 Count 4 cells/uL (490-1740) L 09/13/18 12:29 % CD8 Cells 70 % (12-42) H 09/13/18 12:29 Absolute CD8 Count 216 cells/uL (180-1170) 09/13/18 12:29 % CD19 Cells 17 % (6-29) 09/13/18 12:29 Absolute CD19 Count 54 cells/uL (110-660) L 09/13/18 12:29 RPR Titer 1:16 09/13/18 12:29 RPR Reactive (Nonreactive) 09/13/18 12:29 T.pallidum Ab (FTA-ABS) Reactive (Nonreactive) H 09/14/18 16:34 C. difficile Toxin A&B Negative (Negative) 09/12/18 05:30 CMV DNA PCR log microscopist/mL See scanned results 10/03/18 06:12 Hepatitis A IgM Ab Non-reactive (NonReactive) 09/13/18 12:29 Hep Bs Antigen Non-reactive (Negative) 09/13/18 12:29 Hep B Core IgM Ab Non-reactive (NonReactive) 09/13/18 12:29 Hepatitis C Antibody Non-reactive (NonReactive) 09/13/18 12:29 HIV-1 Antibody See scanned result 09/11/18 19:14 HIV-1 RNA PCR copies/ml 97749 Copies/mL H 09/13/18 12:29 HIV-1 RNA (PCR) log 4.71 Log cps/mL H 09/13/18 12:29 HIV-2 Ab (Immunoblot) See scanned result 09/11/18 19:14 HIV 1&2 Antibody Rapid Reactive (Non React) 09/11/18 19:14 HIV P24 Antigen Non react (Non React) 09/11/18 19:14 Influenza A (Rapid) Negative (Negative) 09/13/18 16:05 Influenza A (RT-PCR) Negative (Negative) 09/13/18 16:05 Influenza B (Rapid) Negative (Negative) 09/13/18 16:05 Influenza B (RT-PCR) Negative (Negative) 09/13/18 16:05 Toxoplasma IgG Ab <7.20 IU/mL (<7.20) 09/16/18 12:09 Miscellaneous Test Flexitest 1 H 10/10/18 Unknown Crossmatch See Detail 10/24/18 11:15 Nutrition/Malnutrition Assess - Dietary Evaluation Nutrition/Malnutrition Findings: Nutrition Notes Start: 09/12/18 17:45 Freq: Status: Active Protocol: Document 10/20/18 14:10 KH (Rec: 10/20/18 14:24 [email or web address]) Co-Sign 10/20/18 14:10 LP Nutrition Notes Initial or Follow up Reassessment Current Diagnosis Acute Kidney Injury,Sepsis, Respiratory Failure Other Pertinent Diagnosis On HD, HIV, bilat pneu, gastroenteritis, encephalopathy Current Diet Vital AF at 60 ml/hr Labs/Tests From 10/19: K: 2.9 BUN: 107 Cr: 5.9 Pertinent Medications Lopressor Height 6 ft Weight 120.8 kg [place] Body Weight (kg) 80.90 BMI 36.1 Subjective/Other Information Pt. f/u for stable TF, renal labs. Observed Vital AF running at 60 ml/hr. Per RN, pt still tolerating TF well. BUN and Cr are high but trending down. Percent of energy/protein needs met: 89%/89% Burn Absent Trauma Absent #2 Nutrition Diagnosis Inadequate oral intake Diagnosis Progress(for reassessment Continues documentation) #1 Nutrition Diagnosis Malnutrition Diagnosis Progress(for reassessment Continues documentation) Is patient on ventilator? Yes Is Patient Ambulatory and/or Out of Bed No REE-([facility]-confined to bed) 2630.916 Kcal/Kg value to use for calculation 16 Approximate Energy Requirements Using 1933 kcal/Kg Calculation Used for Recommendations Kcal/kg Additional Notes Pro needs: 162 g/day (2g/kg IBW) Fluid: 1 ml/kcal Nutrition Intervention Change Diet Order: Continue TF Nutrition Support: Vital AF 1.2 at 60ml/hr Flush with 100ml q4h Kcal 1,728 Protein (gm) 108 Fluid (mL) 1,203 Goal #1 Continue to meet at least 80% of energy and 65% of protein needs due to renal function. Anticipated Discharge Needs: Unable to determine at this time Follow-Up By: 10/24/18 Additional Comments F/u for stable TF, renal labs
[2018-10-24 13:02] LABS: Heparin-Induced Platelet Antib Negative (Negative); Unfractionated Heparin Negative (Negative)
[2018-10-24] MEDS: KEPPRA PO SCH ×2 (13:41→22:58)
[2018-10-24] MEDS: CORDARONE PO SCH (13:41)
[2018-10-24] MEDS: NORVIR PO SCH (13:42)
[2018-10-24] MEDS: PEPCID PO SCH (13:42)
[2018-10-24] MEDS: TIVICAY PO SCH (13:43)
[2018-10-24] MEDS: CYTOVENE IV SCH (13:44)
[2018-10-24] MEDS: FOLVITE PO SCH (13:44)
[2018-10-24] MEDS: NACL 0.9% IV SCH (13:44)
[2018-10-24] MEDS: LOPRESSOR PO SCH ×2 (13:45→22:58)
[2018-10-24] MEDS: MEPRON PO SCH ×2 (13:48→22:56)
[2018-10-24] MEDS: PREZISTA PO SCH (13:48)
[2018-10-24] MEDS: SODIUM CHLORIDE FLUSH SYRINGE 10 ML IV SCH ×2 (13:49→22:58)
--- NOTE | 2018-10-24 14:08 | XRay Report ---
AP CHEST: HISTORY: Pneumonia AP view of the chest demonstrates a normal mediastinal and cardiac contour with clear lungs and normal bony and soft tissue structures. Lines and support devices remain in the same position since 10/10/18. IMPRESSION: Unremarkable AP chest.
[2018-10-24] MEDS: SODIUM CHLORIDE FLUSH SYRINGE 10 ML IV PRN (16:58)
[2018-10-24] MEDS: TRANSDERM-SCOP TD SCH (18:01)
[2018-10-25] MEDS: PROVENTIL IH SCH ×4 (02:34→19:06)
[2018-10-25] MEDS: SYNTHROID PO SCH (05:07)
[2018-10-25] MEDS: ROBINUL PO SCH ×3 (05:07→21:33)
[2018-10-25 06:12] LABS: Calcium 7.9 mg/dL (8.4-10.2)
[2018-10-25] MEDS ORDERED: WATER FOR IRRIG STERILE IR ONE ×2 (07:34→09:58)
[2018-10-25] MEDS ORDERED: ANCEF/STERILE WATER 2 GM/20 ML 2 GM/20 ML SYRINGE IV ONE (07:49)
[2018-10-25] MEDS ORDERED: NACL 0.9% 1000 ML 1,000 ML IV SCH (08:00)
[2018-10-25] MEDS ORDERED: ANCEF/STERILE WATER 2 GM/20 ML 2 GM/20 ML SYRINGE IV NR (08:00)
[2018-10-25] MEDS ORDERED: DIPRIVAN 10 MG/ML IV ONE ×3 (08:31→09:04)
[2018-10-25] MEDS ORDERED: XYLOCAINE 2% INFILTRATI ONE (08:31)
[2018-10-25] MEDS ORDERED: AMIDATE IV ONE (08:32)
--- NOTE | 2018-10-25 08:38 | Progress Note ---
Assessment and Plan - Patient Problems (1) Acute kidney failure with tubular necrosis Current Visit: Yes Status: Acute Plan to address problem: Acute tubular necrosis secondary to sepsis. Patient is now on hemodialysis 3 times a week. Continue to monitor for signs of renal recovery (2) Encephalopathy Current Visit: Yes Status: Acute Plan to address problem: Possibly related to neurosyphilis and/or disseminated CMV. Continue treatment for both per the infectious disease. (3) Acute respiratory failure with hypoxia Current Visit: Yes Status: Acute Plan to address problem: Continue ventilatory support per Pulmonary (4) AIDS Current Visit: Yes Status: Suspected Plan to address problem: Being managed by infectious disease (5) Pancytopenia Current Visit: Yes Status: Acute Plan to address problem: HIV-related and/or disseminated CMV (6) Sepsis Current Visit: Yes Status: Acute Plan to address problem: Continue AB per ID. 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 Improved. Follow-up liver function test (8) Hypokalemia Current Visit: Yes Status: Acute Plan to address problem: Supplement potassium and follow-up potassium level. Check magnesium level Subjective Date of service: 10/25/18 Principal diagnosis: acute kidney injury, low wbc Interval history: Patient seen lying in bed. Intubated and on ventilator. Opens eyes and following commands this morning. Objective - Exam Narrative Exam: Young -Congolese male lying in bed intubated and on ventilator HEENT: NCAT, ETT intact Neck: Supple, no venous distention CVS: S1S2 RRR with no murmur, rub or gallop Chest: Coarse breath sounds Abdomen: Protuberant, soft, nontender, no organomegaly, bowel sounds are present Extremities: 2+ edema thighs Genitourinary deferred Neuro: Intubated on ventilator, eyes open and patient is following simple commands this morning. Blinks twice on request. Unable to move left upper extremity but moves right upper extremity - Vital Signs Vital signs: Vital Signs - 12hr 10/24/18 10/24/18 10/24/18 21:01 22:00 22:15 Temperature Pulse Rate 88 87 88 Pulse Rate [ Bases] Pulse Rate [ From Monitor] Respiratory 21 23 18 Rate Respiratory Rate [Bases] Respiratory Rate [ Generalized] Blood Pressure 122/63 122/63 O2 Sat by Pulse 100 100 100 Oximetry 10/24/18 10/24/18 10/24/18 22:58 23:00 23:03 Temperature Pulse Rate 89 89 90 Pulse Rate [ Bases] Pulse Rate [ From Monitor] Respiratory 21 26 H Rate Respiratory Rate [Bases] Respiratory Rate [ Generalized] Blood Pressure 145/80 134/79 134/79 O2 Sat by Pulse 100 100 Oximetry 10/24/18 10/24/18 10/24/18 23:05 23:17 23:33 Temperature 99.4 F Pulse Rate 86 Pulse Rate [ Bases] Pulse Rate [ 90 From Monitor] Respiratory 18 21 Rate Respiratory Rate [Bases] Respiratory 21 Rate [ Generalized] Blood Pressure 123/68 O2 Sat by Pulse 100 100 Oximetry 10/25/18 10/25/18 10/25/18 00:00 01:00 02:00 Temperature Pulse Rate 88 87 Pulse Rate [ 92 H Bases] Pulse Rate [ From Monitor] Respiratory 19 22 Rate Respiratory 21 Rate [Bases] Respiratory Rate [ Generalized] Blood Pressure 121/64 112/65 O2 Sat by Pulse 100 96 Oximetry 10/25/18 10/25/18 10/25/18 02:01 02:15 03:00 Temperature Pulse Rate 88 90 Pulse Rate [ Bases] Pulse Rate [ From Monitor] Respiratory 20 18 22 Rate Respiratory Rate [Bases] Respiratory Rate [ Generalized] Blood Pressure 114/66 117/69 O2 Sat by Pulse 100 100 99 Oximetry 10/25/18 10/25/18 10/25/18 03:24 03:25 04:00 Temperature 100.4 F H 99.4 F Pulse Rate 88 Pulse Rate [ Bases] Pulse Rate [ From Monitor] Respiratory 21 Rate Respiratory Rate [Bases] Respiratory Rate [ Generalized] Blood Pressure 125/68 O2 Sat by Pulse 97 Oximetry 10/25/18 10/25/18 10/25/18 04:30 05:00 06:00 Temperature Pulse Rate 89 86 Pulse Rate [ Bases] Pulse Rate [ 89 From Monitor] Respiratory 18 17 13 Rate Respiratory Rate [Bases] Respiratory Rate [ Generalized] Blood Pressure 131/70 112/67 O2 Sat by Pulse 100 97 100 Oximetry 10/25/18 10/25/18 10/25/18 07:23 07:28 07:45 Temperature Pulse Rate 86 Pulse Rate [ 86 85 Bases] Pulse Rate [ From Monitor] Respiratory Rate Respiratory 20 22 Rate [Bases] Respiratory Rate [ Generalized] Blood Pressure 126/63 O2 Sat by Pulse 100 Oximetry - Lab 10/24/18 04:50 10/25/18 05:20 Most recent lab results Calcium 7.9 mg/dL (8.4-10.2) L 10/25/18 05:20 Phosphorus 8.50 mg/dL (2.5-4.5) H 10/14/18 09:40 Magnesium 1.80 mg/dL (1.7-2.3) 10/25/18 05:20 Urine Creatinine 57.5 mg/dL (0.1-20.0) H 10/11/18 05:40 Urine Sodium 70 mmol/L 10/11/18 05:40 Urine Total Protein 44 mg/dL (5-11.8) H 10/11/18 05:40 Medications & Allergies - Medications Allergies/Adverse Reactions: Allergies No Known Allergies Allergy (Unverified 09/11/18 17:50) Home Medications: Home Medications Medication Instructions Recorded Confirmed Last Taken Type No Known Home Medications [No 10/02/18 10/02/18 Unknown History Reported Home Medications] Active Medications: Generic Name Dose Route Start Last Admin Trade Name Freq PRN Reason Stop Dose Admin Acetaminophen 650 mg 09/11/18 19:30 10/09/18 16:32 Tylenol PO 650 mg Q4H PRN Administration Pain MILD(1-3)/Fever >100.5/RIVERA Acetaminophen 650 mg 09/21/18 07:39 10/07/18 21:15 Tylenol [place] 650 mg Q4H PRN Administration Fever >101 Albuterol 2.5 mg 09/20/18 20:00 10/25/18 07:28 Proventil IH 2.5 mg Q6HRT GIA Administration Amiodarone HCl 200 mg 10/22/18 10:00 10/24/18 13:41 Cordarone PO 200 mg DAILY GIA Administration Lipase/Protease/Amylase 1 each 09/30/18 12:01 Pancrealen Gibbs 10,500 Unit FEEDTUBE PRN PRN For Clogged Feeding Tube Atovaquone 750 mg 09/21/18 10:00 10/24/18 22:56 Mepron PO 750 mg BID GIA Administration Darunavir 800 mg 10/21/18 12:00 10/24/18 13:48 Prezista PO 800 mg QDAY GIA Administration Emtricitabine 200 mg 10/13/18 10:00 10/21/18 14:29 Emtriva PO 200 mg Q96H GIA Administration Famotidine 20 mg 10/10/18 10:00 10/24/18 13:42 Pepcid PO 20 mg DAILY GIA Administration Fluconazole 100 mg 10/25/18 10:00 Diflucan PO QDAY GIA Folic Acid 1 mg 10/07/18 10:00 10/24/18 13:44 Folvite PO 1 mg QDAY GIA Administration Glycopyrrolate 2 mg 10/24/18 14:00 10/25/18 05:07 Robinul PO 2 mg Q8HR GIA Administration Hydrophilic Ointment 1 applic 09/21/18 01:46 09/22/18 03:46 Vaseline Lip Therapy TP 1 applic Q2HR PRN Administration Dry Lips Ganciclovir Sodium 150 mg/ 250 mls @ 100 mls/hr 10/12/18 10:00 10/24/18 13:44 Sodium Chloride IV 100 mls/hr MoWeFr GIA Administration Sodium Chloride 100 mls @ 999 mls/hr 10/17/18 10:39 Nacl 0.9% IV CHERYL PRN Hypotension Cefazolin Sodium 2 gm in 20 mls @ 80 mls/hr 10/25/18 08:00 Ancef/Sterile Water 2 Gm/20 Ml IV 10/25/18 21:00 PREOP NR Protocol Sodium Chloride 1,000 mls @ 50 mls/hr 10/25/18 08:00 Nacl 0.9% 1000 Ml IV DIRECT GIA Levetiracetam 750 mg 10/12/18 22:00 10/24/18 22:58 Keppra PO 750 mg BID GIA Administration Levothyroxine Sodium 25 mcg 09/19/18 06:00 10/25/18 05:07 Synthroid PO 25 mcg DAILY@0600 [facility] Administration Metoprolol Tartrate 12.5 mg 10/10/18 13:00 10/24/18 22:58 Lopressor PO 12.5 mg BID GIA Administration Morphine Sulfate 2 mg 10/20/18 18:37 Morphine IV Q4H PRN Pain, Moderate (4-6) Multi-Ingred Cream/Lotion/Oil/Oint 1 applic 09/21/18 01:46 Artificial Tears Ophth Oint OU Q4HR PRN Dry Eye(s) Ondansetron HCl 4 mg 09/11/18 19:30 Zofran IV Q8H PRN Nausea And Vomiting Ritonavir 100 mg 10/21/18 12:00 10/24/18 13:42 Norvir PO 100 mg QDAY GIA Administration Scopolamine 1 each 09/18/18 18:00 10/24/18 18:01 Transderm-Scop TD 1 each Q3D GIA Administration Simple Syrup 15 ml 10/15/18 10:45 Simple Syrup FEEDTUBE PRN PRN Hypoglycemia Simple Syrup 30 ml 10/15/18 10:45 Simple Syrup FEEDTUBE PRN PRN Hypoglycemia Sodium Bicarbonate 325 mg 10/15/18 10:45 Sodium Bicarbonate FEEDTUBE PRN PRN For Clogged Feeding Tube Sodium Chloride 10 ml 09/11/18 22:00 10/24/18 22:58 Sodium Chloride Flush Syringe 10 Ml IV 10 ml BID GIA Administration Sodium Chloride 10 ml 09/11/18 19:30 10/24/18 16:58 Sodium Chloride Flush Syringe 10 Ml IV 10 ml PRN PRN Administration LINE FLUSH
--- NOTE | 2018-10-25 08:40 | Hem/Onc Progress Note ---
Assessment and Plan 1. Leukopenia. ANC is 0.5. Neutropenic precaution is practical. 2. Anemia. We will investigate. 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 HAART has been started. At this time, there is no fever. 3. Human immunodeficiency virus, on HAART. 4. 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 5. Intubated. 6. On antibiotics for pneumonia. 7. History of ____ that is improved. 8. Looks at you, but does not communicate. 9. History of oral candidiasis. 10. Mention of giardiasis. 11. Encephalopathy. 12. RVR with atrial fibrillation. I will follow the patient during inpatient stay. At this time, his cytopenia is likely secondary to the HIV or the CMV. I will discuss with ID team to see if G-CSF support is an option. 10/07 - d/w ID - reg GCSF ANC improving 0.7 today - will watch low folate - replace 10/09 - moving rt arm - GCSF trial for 2 days 10/10 - head greenskeeper worse - d/w RN reg same - I had spoken to hospitalist - dr reyna - yesterday about this 10/11 - s/p GCSF - not much change in WBC or overall performance - as per RN - plan for trach and PEG head greenskeeper high - nephrology 10/12 - trach - peg not done - as family deciding the GCSF - did not change the WBC 10/13 - wbc 1 - opens eye - non communicative 10/14 - pt moves rt arm - eyes open still on vent - as per info - family is thinking about PEG - trach - they have not consented granix trial for low wbc 10/15 - gcsf trial - poor prognosis due to performance status 10/16 - dialysis cath wbc low - gCSF 10/17 - wbc still low - poor prognosis - ct folic acid for anemia 10/18 - not much improvement - last cbc on 10/16 10/19 - wbc low - moving left toes 10/20 - low counts may be HIV or meds related 10/21 - as per rN - next week trach/? PEG planned moves rt hand and left toes 10/22 - as per RN - PEG planned next week pt awake - moves left toes - restrain 10/23 - d/w dr Young - repeat CBC now to see plt moves rt arm and left leg on vent - plt better - anemia - low wbc will look into transfusion support if falls more iv iron 10/25 - prbc - gsf intermittent - did not change the wbc sx procedure planned - Patient Problems (1) Neutropenia Current Visit: Yes Status: Acute Subjective Date of service: 10/25/18 Principal diagnosis: low wbc Interval history: pt due sx procedure Objective - Constitutional Vitals: Last Vital Signs Temp 99.4 F 10/25/18 03:25 Pulse 85 10/25/18 07:45 Resp 22 10/25/18 07:45 BP 126/63 10/25/18 07:23 Pulse Ox 100 10/25/18 07:23 - Labs Lab Results: Laboratory Results - last 24 hr 10/20/18 10/24/18 10/25/18 12:50 11:15 05:20 Heparin Anti-Xa, Unfract Negative Sodium 142 Potassium 3.0 L Chloride 103.4 Carbon Dioxide 20 L Anion Gap 22 BUN 69 H Creatinine 5.4 H Estimated GFR 15 BUN/Creatinine Ratio 13 Glucose 89 Calcium 7.9 L Magnesium 1.80 Heparin-induced Plt Ab Negative UF Heparin High Dose 0 MAGDIEL UFH Low Dose 0.1 0 MAGDIEL UFH Low Dose 0.5 0 Blood Type B NEGATIVE Antibody Screen Negative Crossmatch See Detail Medications & Allergies - Medications Allergies/Adverse Reactions: Allergies No Known Allergies Allergy (Unverified 09/11/18 17:50) Home Medications: Home Medications Medication Instructions Recorded Confirmed Last Taken Type No Known Home Medications [No 10/02/18 10/02/18 Unknown History Reported Home Medications] Active Medications: Generic Name Dose Route Start Last Admin Trade Name Harpreet PRN Reason Stop Dose Admin Acetaminophen 650 mg 09/11/18 19:30 10/09/18 16:32 Tylenol PO 650 mg Q4H PRN Administration Pain MILD(1-3)/Fever >100.5/RIVERA Acetaminophen 650 mg 09/21/18 07:39 10/07/18 21:15 Tylenol [place] 650 mg Q4H PRN Administration Fever >101 Albuterol 2.5 mg 09/20/18 20:00 10/25/18 07:28 Proventil IH 2.5 mg Q6HRT GIA Administration Amiodarone HCl 200 mg 10/22/18 10:00 10/24/18 13:41 Cordarone PO 200 mg DAILY GIA Administration Lipase/Protease/Amylase 1 each 09/30/18 12:01 Pancrealen Gibbs 10,500 Unit FEEDTUBE PRN PRN For Clogged Feeding Tube Atovaquone 750 mg 09/21/18 10:00 10/24/18 22:56 Mepron PO 750 mg BID GIA Administration Darunavir 800 mg 10/21/18 12:00 10/24/18 13:48 Prezista PO 800 mg QDAY GIA Administration Emtricitabine 200 mg 10/13/18 10:00 10/21/18 14:29 Emtriva PO 200 mg Q96H GIA Administration Famotidine 20 mg 10/10/18 10:00 10/24/18 13:42 Pepcid PO 20 mg DAILY GIA Administration Fluconazole 100 mg 10/25/18 10:00 Diflucan PO QDAY GIA Folic Acid 1 mg 10/07/18 10:00 10/24/18 13:44 Folvite PO 1 mg QDAY GIA Administration Glycopyrrolate 2 mg 10/24/18 14:00 10/25/18 05:07 Robinul PO 2 mg Q8HR GIA Administration Hydrophilic Ointment 1 applic 09/21/18 01:46 09/22/18 03:46 Vaseline Lip Therapy TP 1 applic Q2HR PRN Administration Dry Lips Ganciclovir Sodium 150 mg/ 250 mls @ 100 mls/hr 10/12/18 10:00 10/24/18 13:44 Sodium Chloride IV 100 mls/hr MoWeFr GIA Administration Sodium Chloride 100 mls @ 999 mls/hr 10/17/18 10:39 Nacl 0.9% IV CHERYL PRN Hypotension Cefazolin Sodium 2 gm in 20 mls @ 80 mls/hr 10/25/18 08:00 Ancef/Sterile Water 2 Gm/20 Ml IV 10/25/18 21:00 PREOP NR Protocol Sodium Chloride 1,000 mls @ 50 mls/hr 10/25/18 08:00 Nacl 0.9% 1000 Ml IV DIRECT GIA Levetiracetam 750 mg 10/12/18 22:00 10/24/18 22:58 Keppra PO 750 mg BID GIA Administration Levothyroxine Sodium 25 mcg 09/19/18 06:00 10/25/18 05:07 Synthroid PO 25 mcg DAILY@0600 GIA Administration Metoprolol Tartrate 12.5 mg 10/10/18 13:00 10/24/18 22:58 Lopressor PO 12.5 mg BID GIA Administration Morphine Sulfate 2 mg 10/20/18 18:37 Morphine IV Q4H PRN Pain, Moderate (4-6) Multi-Ingred Cream/Lotion/Oil/Oint 1 applic 09/21/18 01:46 Artificial Tears Ophth Oint OU Q4HR PRN Dry Eye(s) Ondansetron HCl 4 mg 09/11/18 19:30 Zofran IV Q8H PRN Nausea And Vomiting Potassium Chloride 40 meq 10/25/18 08:39 Potassium Chloride FEEDTUBE 10/25/18 08:40 ONCE ONE Ritonavir 100 mg 10/21/18 12:00 10/24/18 13:42 Norvir PO 100 mg QDAY GIA Administration Scopolamine 1 each 09/18/18 18:00 10/24/18 18:01 Transderm-Scop TD 1 each Q3D GIA Administration Simple Syrup 15 ml 10/15/18 10:45 Simple Syrup FEEDTUBE PRN PRN Hypoglycemia Simple Syrup 30 ml 10/15/18 10:45 Simple Syrup FEEDTUBE PRN PRN Hypoglycemia Sodium Bicarbonate 325 mg 10/15/18 10:45 Sodium Bicarbonate FEEDTUBE PRN PRN For Clogged Feeding Tube Sodium Chloride 10 ml 09/11/18 22:00 10/24/18 22:58 Sodium Chloride Flush Syringe 10 Ml IV 10 ml BID GIA Administration Sodium Chloride 10 ml 09/11/18 19:30 10/24/18 16:58 Sodium Chloride Flush Syringe 10 Ml IV 10 ml PRN PRN Administration LINE FLUSH
--- NOTE | 2018-10-25 09:32 | Procedure Note ---
Date of procedure: 10/25/18 Pre-op diagnosis: respiratory failure Post-op diagnosis: same Procedure: Mikayla bobby Consent was on the chart. Time out was performed. Sterile prep and drape was done. Anesthesia was managed by anesthesia provider. Lidocaine was used to anesthetize an area about two finger breadths above the sternal notch. Transverse incision was made. Blunt dissection was carried down to trachea. Under bronchoscopic guidance, a finder needle was used to enter the trachea. Thereafter, the introducer needle was inserted. It was approximately at the second tracheal ring. Tract was dilated and tracheostomy tube was easily inserted. Balloon was inflated. Position was rechecked via bronchoscopy through the tracheostomy tube. We were at least 2 cm above the narcisa. We had good inspiratory and expiratory volumes. CXR shows the tube to be in good position. T here were no apparent complications at the end of the case. Findings: normal anatomy Implants: 8 Susan bobby Anesthesia: MAC Surgeon: CHUY RODRIGUEZ Cloth Shrinking Supervisor: SAM MAYA (Performed bronch) Estimated blood loss: minimal Pathology: none Condition: stable Disposition: ICU
--- NOTE | 2018-10-25 09:35 | Procedure Note ---
Date of procedure: 10/25/18 Pre-op diagnosis: vdrf Post-op diagnosis: same Procedure: Fiberoptic bronchoscopy Findings: Pt placed in supine position with shoulder roll and neck slightly extended. Adapter attached to ETT. Flexible bronchoscope advanced through ETT into trachea. Trachea clear and narcisa easily visualized. No inflammation. The ETT was pulled back from [address] Bocanegra performed tracheostomy under direct visualization. The needle was seen entering the trachea and wire threaded under direct visualization. Tracheostomy was placed (see separate procedure note). Once the tracheostomy was placed, the balloon was seen inside the trachea. Bronchoscope was withdrawn from the ETT and placed through the tracheostomy. The tracheostomy was 3 cm from the narcisa. There was no bleeding and the airway remained clear. The bronchoscope was withdrawn. Tracheostomy hooked to ventilator and inspiratory and expiratory volumes were satisfactory. The ETT was removed. The patient tolerated this portion of the procedure well. Anesthesia: GETA Surgeon: SAM MAYA Estimated blood loss: minimal Condition: stable Disposition: no change
--- NOTE | 2018-10-25 09:44 | Procedure Note ---
Date of procedure: 10/25/18 Pre-op diagnosis: VDRF Post-op diagnosis: same Procedure: PEG tube placement Findings: Time out was performed at the start of the procedure. The bite block was placed. Endoscope was passed through the mouth and into the esophagus, with dobhoff tube serving as a guide. The endoscope was advanced through the esophagus and into the stomach. There was bilious material seen in the fundus. The scope was advanced through the mid and distal body of the stomach and transillumination performed. There was good transillumination and a satisfactory position was chosen for the PEG tube in the mid/distal body of the stomach. The skin was anesthetized with local anesthetic and an incision made. A needle/catheter complex was inserted under direct visualization through this incision and into the stomach. The needle was withdrawn and wire threaded through catheter. The wire was grasped with a snare though the endoscope and the endoscope withdrawn through the mouth. The PEG tube was attached to the wire and pulled until it was brought out through the abdominal incision. The endoscope was passed through the mouth, the esophagus, and into the stomach. The PEG bumper was seen in satisfactory position against the gastric mucosa with out tension. The scope was then advanced through the pylorus and into the duodenum. The duodenum and pylorus were unremarkable. The body of the stomach showed evidence of mild gastritis but no bleeding. The scope was was retroflexed and bilious fluid was aspirated from the fundus. The fundus was unremarkable. The stomach was then decompressed and the scope pulled back into the esophagus and slowly into the mouth. The esophagus was unremarkable. The scope was removed. The PEG tube was assembled in the usual fashion and clamped. The patient tolerated the procedure well. Implants: PEG tube Anesthesia: JAILENE local Surgeon: SAM MAYA Rehab Tech: CHUY RODRIGUEZ (cosurgeon) Estimated blood loss: minimal Pathology: none Condition: stable Disposition: no change
[2018-10-25] MEDS ORDERED: POTASSIUM CHLORIDE FEEDTUBE ONE (11:00)
[2018-10-25] MEDS ORDERED: NACL 0.9% 500 ML 500 ML IV ONE (11:00)
[2018-10-25] MEDS ORDERED: ZEMURON IV ONE (11:17)
--- NOTE | 2018-10-25 13:13 | Progress Note ---
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) Elevated LFTs Neutropenia Thrombocytopenia - s/p treatment for Giardia and C-difficile re: Diarrhea - will begin some questran - routine trach care per RT - resume lovenox for VTE prophylaxis as HIT assay negative - continue SCD's for VTE prophylaxis - prn ABG's & CXR's at this point (will repeat CXR in am re: new trach tube) - resume daily SBT's as tolerated in am - continue HD/UF for toxin and volume clearance - continue therapy for CMV encephalitis, neuro syphillis as well as ART - appreciate ID input - continue Robinul & scopolamine for secretion control (secretions improved) - continue to hold all other sedating medications - continue supplemental oxygen to keep sats > 90% - continue bronchodilators with pulmonary hygiene per RT - Continue empiric and targeted anti-infective's per ID recs antibiotics per ID - continue set rate at 12/min - daily SAT's if sedation resumed - continue enteral nutrition as tolerated - when resumed target sedation for RASS 0 to -1 - PT/OT/ROM exercises as tolerated - mobility protocol for pressure ulcer prophylaxis - continue GI & VTE prophylaxis - continue other care per attending / other consultants ...... re-evaluate in am & prn .... care plan discussed at length with sister during team rounds The high probability of a clinically significant, sudden or life threatening deterioration of the [cardiac, respiratory and neurologic] system(s) required my full and direct attention, intervention and personal management. The aggregate critical care time was [40] minutes. This time is in addition to time spent performing reported procedures but includes the following: [x] Data Review and interpretation [x] Patient assessment and monitoring of vital signs [x] Documentation [x] Medication orders and management Subjective Date of service: 10/25/18 Principal diagnosis: Severe sepsis; Ac hypoxemic Resp failure; [place]. Pneumonia; Ac encephalopathy Interval history: Patient is seen today for: Severe sepsis (present on admission with fever, tachycardia, hypotension and elevated lactate); Acute hypoxemic Respiratory failure; Bilateral pneumonia; Acute encephalopathy (Toxic / Metabolic); Atrial Fibrillation with RVR Seen and examined at bedside; 24hour events reviewed; nursing and respiratory care staff consulted; no adverse overnight events reported to me; resting peacefully in bed; still with diarrhea; s/p trach and PEG without immediate complications; no N/V/F/C; sister visiting and he has been communicating Objective Vital Signs - 12hr 10/25/18 10/25/18 10/25/18 02:00 02:01 02:15 Temperature Pulse Rate 88 Pulse Rate [ 92 H Bases] Pulse Rate [ From Monitor] Respiratory 20 18 Rate Respiratory 21 Rate [Bases] Blood Pressure 114/66 O2 Sat by Pulse 100 100 Oximetry 10/25/18 10/25/18 10/25/18 03:00 03:24 03:25 Temperature 100.4 F H 99.4 F Pulse Rate 90 Pulse Rate [ Bases] Pulse Rate [ From Monitor] Respiratory 22 Rate Respiratory Rate [Bases] Blood Pressure 117/69 O2 Sat by Pulse 99 Oximetry 10/25/18 10/25/18 10/25/18 04:00 04:30 05:00 Temperature Pulse Rate 88 89 Pulse Rate [ Bases] Pulse Rate [ 89 From Monitor] Respiratory 21 18 17 Rate Respiratory Rate [Bases] Blood Pressure 125/68 131/70 O2 Sat by Pulse 97 100 97 Oximetry 10/25/18 10/25/18 10/25/18 06:00 07:01 07:23 Temperature Pulse Rate 86 85 86 Pulse Rate [ Bases] Pulse Rate [ From Monitor] Respiratory 13 21 Rate Respiratory Rate [Bases] Blood Pressure 112/67 133/71 126/63 O2 Sat by Pulse 100 100 100 Oximetry 10/25/18 10/25/18 10/25/18 07:28 07:45 08:00 Temperature Pulse Rate Pulse Rate [ 86 85 Bases] Pulse Rate [ 85 From Monitor] Respiratory 16 Rate Respiratory 20 22 Rate [Bases] Blood Pressure O2 Sat by Pulse 100 Oximetry 10/25/18 10/25/18 10/25/18 08:01 09:01 10:01 Temperature Pulse Rate 85 78 82 Pulse Rate [ Bases] Pulse Rate [ From Monitor] Respiratory 16 12 19 Rate Respiratory Rate [Bases] Blood Pressure 119/73 124/79 132/78 O2 Sat by Pulse 100 100 100 Oximetry 10/25/18 10/25/18 10/25/18 11:01 12:00 12:01 Temperature Pulse Rate 80 84 Pulse Rate [ Bases] Pulse Rate [ 84 From Monitor] Respiratory 21 15 15 Rate Respiratory Rate [Bases] Blood Pressure 141/85 151/88 O2 Sat by Pulse 100 100 100 Oximetry Constitutional: lethargic, agitated, appears uncomfortable, other (young looking AAM, normocephalic with mildly increased respiratory effort at rest) Eyes: non-icteric ENT: oropharynx moist, other (Shiley # 8 trach tube in midline of neck) Neck: supple, no lymphadenopathy, other (Shiley # 8 trach tube in midline of neck) Effort: normal Ascultation: Bilateral: rales, rhonchi (scant) Percussion: Bilateral: not dull Cardiovascular: regular rate and rhythm, other (S1,S2, no murmurs, gallps or rubs) Gastrointestinal: normoactive bowel sounds, soft, non-tender, non-distended Integumentary: rash Extremities: no cyanosis, pulses normal, no ischemia or petechiae, edema (1+) Neurologic: non-focal exam (grossly), pupils equal and round, other (Left sided hemiparesis) Psychiatric: other (unable to assess) CBC and BMP: 10/24/18 04:50 10/25/18 05:20 ABG, PT/INR, D-dimer: ABG POC ABG pH 7.399 (7.35-7.45) 10/20/18 12:17 POC ABG pCO2 33.3 (35-45) L 10/20/18 12:17 POC ABG pO2 107 (80-105) H 10/20/18 12:17 POC ABG HCO3 20.6 10/20/18 12:17 POC ABG Total CO2 22 10/20/18 12:17 POC ABG O2 Sat 98 10/20/18 12:17 PT/INR, D-dimer PT 16.0 Sec. (12.2-14.9) H 10/10/18 08:09 INR 1.20 (0.87-1.13) H 10/10/18 08:09 Abnormal lab findings: Abnormal Labs 09/11/18 09/11/18 09/11/18 18:00 18:00 18:00 WBC 1.9 L* RBC Hgb Hct RDW Plt Count 130 L Seg Neuts % (Manual) Lymphocytes % (Manual) Monocytes % (Manual) 16.0 H Eosinophils % (Manual) Basophils % (Manual) Nucleated RBC % Seg Neutrophils # Man 0.9 L Abs Lymphs (Manual) Lymphocytes # (Manual) 0.5 L Basophils # (Manual) PT INR APTT Heparin Anti-Xa Level POC ABG pH POC ABG pCO2 POC ABG pO2 Sodium 131 L Potassium Chloride Carbon Dioxide 17 L BUN 21 H Creatinine Glucose 126 H POC Glucose Lactic Acid 2.60 H* Calcium 8.1 L Phosphorus Magnesium Iron TIBC Ferritin AST 123 H ALT 115 H Total Creatine Kinase Total Protein Albumin 3.0 L Vitamin B12 Folate TSH Free T4 Urine WBC (Auto) Urine Creatinine Urine Chloride Urine Total Protein CSF VDRL Lymph Enumerat CD4/CD8 Absolute CD3 Count % CD4 Cells Absolute CD4 Count % CD8 Cells Absolute CD19 Count T.pallidum Ab (FTA-ABS) HIV-1 RNA PCR copies/ml HIV-1 RNA (PCR) log Miscellaneous Test Crossmatch 09/11/18 09/13/18 09/13/18 19:01 04:28 07:31 WBC 2.0 L RBC Hgb Hct RDW Plt Count 116 L Seg Neuts % (Manual) Lymphocytes % (Manual) Monocytes % (Manual) 8.0 H Eosinophils % (Manual) Basophils % (Manual) Nucleated RBC % Seg Neutrophils # Man 1.0 L Abs Lymphs (Manual) Lymphocytes # (Manual) 0.5 L Basophils # (Manual) PT INR APTT Heparin Anti-Xa Level POC ABG pH POC ABG pCO2 POC ABG pO2 Sodium Potassium Chloride 110.4 H Carbon Dioxide 19 L BUN Creatinine Glucose POC Glucose Lactic Acid 3.70 H* Calcium 7.9 L Phosphorus Magnesium Iron TIBC Ferritin AST ALT Total Creatine Kinase Total Protein Albumin Vitamin B12 Folate TSH Free T4 Urine WBC (Auto) Urine Creatinine Urine Chloride Urine Total Protein CSF VDRL Lymph Enumerat CD4/CD8 Absolute CD3 Count % CD4 Cells Absolute CD4 Count % CD8 Cells Absolute CD19 Count T.pallidum Ab (FTA-ABS) HIV-1 RNA PCR copies/ml HIV-1 RNA (PCR) log Miscellaneous Test Crossmatch 09/13/18 09/13/18 09/13/18 07:31 12:29 12:29 WBC RBC Hgb Hct RDW Plt Count Seg Neuts % (Manual) Lymphocytes % (Manual) Monocytes % (Manual) Eosinophils % (Manual) Basophils % (Manual) Nucleated RBC % Seg Neutrophils # Man Abs Lymphs (Manual) 309 L Lymphocytes # (Manual) Basophils # (Manual) PT INR APTT Heparin Anti-Xa Level POC ABG pH POC ABG pCO2 POC ABG pO2 Sodium Potassium Chloride Carbon Dioxide BUN Creatinine Glucose POC Glucose Lactic Acid Calcium Phosphorus Magnesium Iron TIBC Ferritin AST 70 H ALT 68 H Total Creatine Kinase Total Protein Albumin 2.5 L Vitamin B12 Folate TSH Free T4 Urine WBC (Auto) Urine Creatinine Urine Chloride Urine Total Protein CSF VDRL Lymph Enumerat CD4/CD8 0.01 L Absolute CD3 Count 220 L % CD4 Cells 1 L Absolute CD4 Count 4 L % CD8 Cells 70 H Absolute CD19 Count 54 L T.pallidum Ab (FTA-ABS) HIV-1 RNA PCR copies/ml 88418 H HIV-1 RNA (PCR) log 4.71 H Miscellaneous Test Crossmatch 09/13/18 09/14/18 09/14/18 12:29 07:17 16:34 WBC RBC Hgb Hct RDW Plt Count Seg Neuts % (Manual) Lymphocytes % (Manual) Monocytes % (Manual) Eosinophils % (Manual) Basophils % (Manual) Nucleated RBC % Seg Neutrophils # Man Abs Lymphs (Manual) Lymphocytes # (Manual) Basophils # (Manual) PT INR APTT Heparin Anti-Xa Level POC ABG pH POC ABG pCO2 POC ABG pO2 Sodium Potassium 3.4 L Chloride Carbon Dioxide 18 L BUN Creatinine Glucose 104 H POC Glucose Lactic Acid Calcium 7.6 L Phosphorus Magnesium Iron TIBC Ferritin AST 49 H ALT Total Creatine Kinase Total Protein Albumin 2.5 L Vitamin B12 Folate TSH Free T4 Urine WBC (Auto) Urine Creatinine Urine Chloride Urine Total Protein CSF VDRL Lymph Enumerat CD4/CD8 Absolute CD3 Count % CD4 Cells Absolute CD4 Count % CD8 Cells Absolute CD19 Count T.pallidum Ab (FTA-ABS) Reactive H HIV-1 RNA PCR copies/ml HIV-1 RNA (PCR) log Miscellaneous Test Flexitest 1 H Crossmatch 09/15/18 09/15/18 09/15/18 05:05 05:05 Unknown WBC 1.6 L* RBC Hgb 10.4 L Hct 31.1 L D RDW Plt Count 113 L Seg Neuts % (Manual) Lymphocytes % (Manual) Monocytes % (Manual) Eosinophils % (Manual) Basophils % (Manual) Nucleated RBC % Seg Neutrophils # Man Abs Lymphs (Manual) Lymphocytes # (Manual) Basophils # (Manual) PT INR APTT Heparin Anti-Xa Level POC ABG pH POC ABG pCO2 POC ABG pO2 Sodium Potassium Chloride 107.9 H Carbon Dioxide 18 L BUN 6 L Creatinine Glucose POC Glucose Lactic Acid Calcium 7.4 L Phosphorus Magnesium Iron TIBC Ferritin AST ALT Total Creatine Kinase Total Protein Albumin Vitamin B12 Folate TSH Free T4 Urine WBC (Auto) Urine Creatinine Urine Chloride Urine Total Protein CSF VDRL Reactive 1:8 H Lymph Enumerat CD4/CD8 Absolute CD3 Count % CD4 Cells Absolute CD4 Count % CD8 Cells Absolute CD19 Count T.pallidum Ab (FTA-ABS) HIV-1 RNA PCR copies/ml HIV-1 RNA (PCR) log Miscellaneous Test Crossmatch 09/16/18 09/16/18 09/16/18 06:55 11:41 11:41 WBC 2.8 L RBC Hgb 10.9 L Hct 33.5 L RDW Plt Count 135 L Seg Neuts % (Manual) Lymphocytes % (Manual) Monocytes % (Manual) Eosinophils % (Manual) Basophils % (Manual) Nucleated RBC % Seg Neutrophils # Man Abs Lymphs (Manual) Lymphocytes # (Manual) Basophils # (Manual) PT INR APTT Heparin Anti-Xa Level POC ABG pH POC ABG pCO2 POC ABG pO2 Sodium Potassium Chloride Carbon Dioxide BUN Creatinine Glucose POC Glucose Lactic Acid Calcium Phosphorus Magnesium Iron TIBC Ferritin AST ALT Total Creatine Kinase Total Protein Albumin Vitamin B12 Folate TSH 4.210 H Free T4 0.72 L Urine WBC (Auto) Urine Creatinine Urine Chloride Urine Total Protein CSF VDRL Lymph Enumerat CD4/CD8 Absolute CD3 Count % CD4 Cells Absolute CD4 Count % CD8 Cells Absolute CD19 Count T.pallidum Ab (FTA-ABS) HIV-1 RNA PCR copies/ml HIV-1 RNA (PCR) log Miscellaneous Test Crossmatch 09/16/18 09/16/18 09/17/18 11:41 15:43 05:13 WBC 2.0 L RBC Hgb 10.9 L Hct 32.7 L RDW Plt Count Seg Neuts % (Manual) Lymphocytes % (Manual) Monocytes % (Manual) Eosinophils % (Manual) Basophils % (Manual) Nucleated RBC % Seg Neutrophils # Man Abs Lymphs (Manual) Lymphocytes # (Manual) Basophils # (Manual) PT INR APTT Heparin Anti-Xa Level POC ABG pH POC ABG pCO2 29.3 L POC ABG pO2 70 L Sodium Potassium Chloride Carbon Dioxide BUN Creatinine Glucose POC Glucose Lactic Acid Calcium Phosphorus Magnesium Iron TIBC Ferritin AST ALT Total Creatine Kinase Total Protein Albumin Vitamin B12 934.5 H Folate TSH Free T4 Urine WBC (Auto) Urine Creatinine Urine Chloride Urine Total Protein CSF VDRL Lymph Enumerat CD4/CD8 Absolute CD3 Count % CD4 Cells Absolute CD4 Count % CD8 Cells Absolute CD19 Count T.pallidum Ab (FTA-ABS) HIV-1 RNA PCR copies/ml HIV-1 RNA (PCR) log Miscellaneous Test Crossmatch 09/17/18 09/17/18 09/18/18 05:13 21:57 12:46 WBC RBC Hgb Hct RDW Plt Count Seg Neuts % (Manual) Lymphocytes % (Manual) Monocytes % (Manual) Eosinophils % (Manual) Basophils % (Manual) Nucleated RBC % Seg Neutrophils # Man Abs Lymphs (Manual) Lymphocytes # (Manual) Basophils # (Manual) PT INR APTT Heparin Anti-Xa Level POC ABG pH POC ABG pCO2 POC ABG pO2 Sodium Potassium Chloride 107.2 H Carbon Dioxide 21 L BUN 3 L Creatinine 0.7 L Glucose POC Glucose 108 H Lactic Acid Calcium 7.9 L Phosphorus Magnesium Iron TIBC Ferritin AST ALT Total Creatine Kinase Total Protein 6.1 L Albumin 2.6 L Vitamin B12 Folate TSH Free T4 0.75 L Urine WBC (Auto) Urine Creatinine Urine Chloride Urine Total Protein CSF VDRL Lymph Enumerat CD4/CD8 Absolute CD3 Count % CD4 Cells Absolute CD4 Count % CD8 Cells Absolute CD19 Count T.pallidum Ab (FTA-ABS) HIV-1 RNA PCR copies/ml HIV-1 RNA (PCR) log Miscellaneous Test Crossmatch 09/18/18 09/19/18 09/19/18 12:46 04:57 04:57 WBC 2.1 L RBC Hgb 11.4 L Hct 34.2 L RDW Plt Count Seg Neuts % (Manual) Lymphocytes % (Manual) Monocytes % (Manual) Eosinophils % (Manual) Basophils % (Manual) Nucleated RBC % Seg Neutrophils # Man Abs Lymphs (Manual) Lymphocytes # (Manual) Basophils # (Manual) PT INR APTT Heparin Anti-Xa Level POC ABG pH POC ABG pCO2 POC ABG pO2 Sodium Potassium Chloride Carbon Dioxide 19 L BUN 6 L Creatinine Glucose POC Glucose Lactic Acid Calcium 7.9 L Phosphorus Magnesium Iron TIBC Ferritin AST ALT Total Creatine Kinase Total Protein Albumin Vitamin B12 Folate TSH 5.190 H Free T4 Urine WBC (Auto) Urine Creatinine Urine Chloride Urine Total Protein CSF VDRL Lymph Enumerat CD4/CD8 Absolute CD3 Count % CD4 Cells Absolute CD4 Count % CD8 Cells Absolute CD19 Count T.pallidum Ab (FTA-ABS) HIV-1 RNA PCR copies/ml HIV-1 RNA (PCR) log Miscellaneous Test Crossmatch 09/19/18 09/19/18 09/20/18 15:00 15:00 05:33 WBC RBC Hgb Hct RDW Plt Count Seg Neuts % (Manual) Lymphocytes % (Manual) Monocytes % (Manual) Eosinophils % (Manual) Basophils % (Manual) Nucleated RBC % Seg Neutrophils # Man Abs Lymphs (Manual) Lymphocytes # (Manual) Basophils # (Manual) PT INR APTT Heparin Anti-Xa Level POC ABG pH POC ABG pCO2 POC ABG pO2 Sodium 136 L Potassium Chloride Carbon Dioxide 19 L BUN 7 L Creatinine Glucose POC Glucose Lactic Acid Calcium Phosphorus Magnesium Iron TIBC Ferritin AST ALT Total Creatine Kinase Total Protein Albumin Vitamin B12 Folate TSH Free T4 Urine WBC (Auto) Urine Creatinine Urine Chloride Urine Total Protein CSF VDRL Reactive 1:4 H Lymph Enumerat CD4/CD8 Absolute CD3 Count % CD4 Cells Absolute CD4 Count % CD8 Cells Absolute CD19 Count T.pallidum Ab (FTA-ABS) HIV-1 RNA PCR copies/ml HIV-1 RNA (PCR) log Miscellaneous Test Flexitest 1 H Crossmatch 09/20/18 09/21/18 09/21/18 06:52 01:06 03:49 WBC 2.5 L RBC Hgb Hct RDW Plt Count Seg Neuts % (Manual) Lymphocytes % (Manual) Monocytes % (Manual) Eosinophils % (Manual) Basophils % (Manual) Nucleated RBC % Seg Neutrophils # Man Abs Lymphs (Manual) Lymphocytes # (Manual) Basophils # (Manual) PT INR APTT Heparin Anti-Xa Level POC ABG pH 7.159 L POC ABG pCO2 32.9 L 70.0 H POC ABG pO2 62 L 254 H Sodium Potassium Chloride Carbon Dioxide BUN Creatinine Glucose POC Glucose Lactic Acid Calcium Phosphorus Magnesium Iron TIBC Ferritin AST ALT Total Creatine Kinase Total Protein Albumin Vitamin B12 Folate TSH Free T4 Urine WBC (Auto) Urine Creatinine Urine Chloride Urine Total Protein CSF VDRL Lymph Enumerat CD4/CD8 Absolute CD3 Count % CD4 Cells Absolute CD4 Count % CD8 Cells Absolute CD19 Count T.pallidum Ab (FTA-ABS) HIV-1 RNA PCR copies/ml HIV-1 RNA (PCR) log Miscellaneous Test Crossmatch 09/21/18 09/21/18 09/21/18 04:15 04:15 04:25 WBC 3.1 L RBC Hgb 11.6 L Hct RDW Plt Count Seg Neuts % (Manual) Lymphocytes % (Manual) Monocytes % (Manual) 12.0 H Eosinophils % (Manual) Basophils % (Manual) Nucleated RBC % Seg Neutrophils # Man 1.6 L Abs Lymphs (Manual) Lymphocytes # (Manual) 0.5 L Basophils # (Manual) PT INR APTT Heparin Anti-Xa Level POC ABG pH POC ABG pCO2 POC ABG pO2 Sodium Potassium 6.1 H* D Chloride Carbon Dioxide 19 L BUN Creatinine Glucose 108 H POC Glucose Lactic Acid Calcium Phosphorus Magnesium Iron TIBC Ferritin AST ALT Total Creatine Kinase 685 H Total Protein Albumin Vitamin B12 Folate TSH Free T4 Urine WBC (Auto) Urine Creatinine Urine Chloride Urine Total Protein CSF VDRL Lymph Enumerat CD4/CD8 Absolute CD3 Count % CD4 Cells Absolute CD4 Count % CD8 Cells Absolute CD19 Count T.pallidum Ab (FTA-ABS) HIV-1 RNA PCR copies/ml HIV-1 RNA (PCR) log Miscellaneous Test Crossmatch 09/21/18 09/21/18 09/21/18 09:59 10:07 11:00 WBC RBC Hgb 11.7 L Hct RDW Plt Count Seg Neuts % (Manual) Lymphocytes % (Manual) Monocytes % (Manual) Eosinophils % (Manual) Basophils % (Manual) Nucleated RBC % Seg Neutrophils # Man Abs Lymphs (Manual) Lymphocytes # (Manual) Basophils # (Manual) PT INR APTT Heparin Anti-Xa Level POC ABG pH 7.301 L POC ABG pCO2 POC ABG pO2 109 H Sodium Potassium 6.5 H* Chloride Carbon Dioxide 18 L BUN Creatinine 2.1 H D Glucose POC Glucose Lactic Acid Calcium 8.1 L Phosphorus Magnesium Iron TIBC Ferritin AST 94 H ALT Total Creatine Kinase Total Protein Albumin 2.8 L Vitamin B12 Folate TSH Free T4 Urine WBC (Auto) Urine Creatinine Urine Chloride Urine Total Protein CSF VDRL Lymph Enumerat CD4/CD8 Absolute CD3 Count % CD4 Cells Absolute CD4 Count % CD8 Cells Absolute CD19 Count T.pallidum Ab (FTA-ABS) HIV-1 RNA PCR copies/ml HIV-1 RNA (PCR) log Miscellaneous Test Crossmatch 09/21/18 09/21/18 09/21/18 15:00 21:54 21:54 WBC RBC Hgb Hct RDW Plt Count Seg Neuts % (Manual) Lymphocytes % (Manual) Monocytes % (Manual) Eosinophils % (Manual) Basophils % (Manual) Nucleated RBC % Seg Neutrophils # Man Abs Lymphs (Manual) Lymphocytes # (Manual) Basophils # (Manual) PT 19.9 H INR 1.65 H APTT 40.9 H Heparin Anti-Xa Level 0.98 H POC ABG pH POC ABG pCO2 POC ABG pO2 Sodium Potassium 5.2 H Chloride Carbon Dioxide BUN Creatinine Glucose POC Glucose Lactic Acid Calcium Phosphorus Magnesium Iron TIBC Ferritin AST ALT Total Creatine Kinase Total Protein Albumin Vitamin B12 Folate TSH Free T4 Urine WBC (Auto) Urine Creatinine Urine Chloride Urine Total Protein CSF VDRL Lymph Enumerat CD4/CD8 Absolute CD3 Count % CD4 Cells Absolute CD4 Count % CD8 Cells Absolute CD19 Count T.pallidum Ab (FTA-ABS) HIV-1 RNA PCR copies/ml HIV-1 RNA (PCR) log Miscellaneous Test Crossmatch 09/21/18 09/22/18 09/22/18 22:57 03:01 05:27 WBC RBC Hgb Hct RDW Plt Count Seg Neuts % (Manual) Lymphocytes % (Manual) Monocytes % (Manual) Eosinophils % (Manual) Basophils % (Manual) Nucleated RBC % Seg Neutrophils # Man Abs Lymphs (Manual) Lymphocytes # (Manual) Basophils # (Manual) PT INR APTT Heparin Anti-Xa Level POC ABG pH POC ABG pCO2 32.7 L POC ABG pO2 Sodium Potassium Chloride Carbon Dioxide BUN Creatinine Glucose POC Glucose 124 H 128 H Lactic Acid Calcium Phosphorus Magnesium Iron TIBC Ferritin AST ALT Total Creatine Kinase Total Protein Albumin Vitamin B12 Folate TSH Free T4 Urine WBC (Auto) Urine Creatinine Urine Chloride Urine Total Protein CSF VDRL Lymph Enumerat CD4/CD8 Absolute CD3 Count % CD4 Cells Absolute CD4 Count % CD8 Cells Absolute CD19 Count T.pallidum Ab (FTA-ABS) HIV-1 RNA PCR copies/ml HIV-1 RNA (PCR) log Miscellaneous Test Crossmatch 09/22/18 09/22/18 09/22/18 07:00 07:00 11:32 WBC 1.8 L* RBC 3.59 L Hgb 10.1 L Hct 30.8 L RDW Plt Count 126 L Seg Neuts % (Manual) Lymphocytes % (Manual) Monocytes % (Manual) Eosinophils % (Manual) Basophils % (Manual) Nucleated RBC % Seg Neutrophils # Man Abs Lymphs (Manual) Lymphocytes # (Manual) Basophils # (Manual) PT INR APTT Heparin Anti-Xa Level POC ABG pH POC ABG pCO2 POC ABG pO2 Sodium Potassium Chloride Carbon Dioxide BUN 27 H Creatinine 2.0 H Glucose 128 H POC Glucose 123 H Lactic Acid Calcium 6.9 L Phosphorus Magnesium Iron TIBC Ferritin AST ALT Total Creatine Kinase Total Protein Albumin Vitamin B12 Folate TSH Free T4 Urine WBC (Auto) Urine Creatinine Urine Chloride Urine Total Protein CSF VDRL Lymph Enumerat CD4/CD8 Absolute CD3 Count % CD4 Cells Absolute CD4 Count % CD8 Cells Absolute CD19 Count T.pallidum Ab (FTA-ABS) HIV-1 RNA PCR copies/ml HIV-1 RNA (PCR) log Miscellaneous Test Crossmatch 09/22/18 09/22/18 09/22/18 15:52 18:18 23:52 WBC RBC Hgb Hct RDW Plt Count Seg Neuts % (Manual) Lymphocytes % (Manual) Monocytes % (Manual) Eosinophils % (Manual) Basophils % (Manual) Nucleated RBC % Seg Neutrophils # Man Abs Lymphs (Manual) Lymphocytes # (Manual) Basophils # (Manual) PT INR APTT Heparin Anti-Xa Level POC ABG pH POC ABG pCO2 48.7 H POC ABG pO2 Sodium Potassium Chloride Carbon Dioxide BUN Creatinine Glucose POC Glucose 110 H 124 H Lactic Acid Calcium Phosphorus Magnesium Iron TIBC Ferritin AST ALT Total Creatine Kinase Total Protein Albumin Vitamin B12 Folate TSH Free T4 Urine WBC (Auto) Urine Creatinine Urine Chloride Urine Total Protein CSF VDRL Lymph Enumerat CD4/CD8 Absolute CD3 Count % CD4 Cells Absolute CD4 Count % CD8 Cells Absolute CD19 Count T.pallidum Ab (FTA-ABS) HIV-1 RNA PCR copies/ml HIV-1 RNA (PCR) log Miscellaneous Test Crossmatch 09/23/18 09/23/18 09/23/18 04:10 05:55 05:55 WBC RBC Hgb 10.0 L Hct 30.3 L RDW Plt Count 117 L Seg Neuts % (Manual) Lymphocytes % (Manual) Monocytes % (Manual) Eosinophils % (Manual) Basophils % (Manual) Nucleated RBC % Seg Neutrophils # Man Abs Lymphs (Manual) Lymphocytes # (Manual) Basophils # (Manual) PT INR APTT Heparin Anti-Xa Level 0.26 L POC ABG pH POC ABG pCO2 POC ABG pO2 144 H Sodium Potassium Chloride Carbon Dioxide BUN Creatinine Glucose POC Glucose Lactic Acid Calcium Phosphorus Magnesium Iron TIBC Ferritin AST ALT Total Creatine Kinase Total Protein Albumin Vitamin B12 Folate TSH Free T4 Urine WBC (Auto) Urine Creatinine Urine Chloride Urine Total Protein CSF VDRL Lymph Enumerat CD4/CD8 Absolute CD3 Count % CD4 Cells Absolute CD4 Count % CD8 Cells Absolute CD19 Count T.pallidum Ab (FTA-ABS) HIV-1 RNA PCR copies/ml HIV-1 RNA (PCR) log Miscellaneous Test Crossmatch 09/23/18 09/23/18 09/23/18 08:10 08:10 23:57 WBC 1.3 L* RBC 3.53 L Hgb 9.9 L Hct 30.0 L RDW Plt Count 119 L Seg Neuts % (Manual) Lymphocytes % (Manual) Monocytes % (Manual) Eosinophils % (Manual) Basophils % (Manual) Nucleated RBC % Seg Neutrophils # Man Abs Lymphs (Manual) Lymphocytes # (Manual) Basophils # (Manual) PT INR APTT Heparin Anti-Xa Level POC ABG pH POC ABG pCO2 POC ABG pO2 Sodium Potassium Chloride Carbon Dioxide BUN Creatinine Glucose 122 H POC Glucose 115 H Lactic Acid Calcium 6.9 L Phosphorus Magnesium Iron TIBC Ferritin AST ALT Total Creatine Kinase Total Protein Albumin Vitamin B12 Folate TSH Free T4 Urine WBC (Auto) Urine Creatinine Urine Chloride Urine Total Protein CSF VDRL Lymph Enumerat CD4/CD8 Absolute CD3 Count % CD4 Cells Absolute CD4 Count % CD8 Cells Absolute CD19 Count T.pallidum Ab (FTA-ABS) HIV-1 RNA PCR copies/ml HIV-1 RNA (PCR) log Miscellaneous Test Crossmatch 09/24/18 09/24/18 09/24/18 12:04 14:42 18:10 WBC RBC Hgb Hct RDW Plt Count Seg Neuts % (Manual) Lymphocytes % (Manual) Monocytes % (Manual) Eosinophils % (Manual) Basophils % (Manual) Nucleated RBC % Seg Neutrophils # Man Abs Lymphs (Manual) Lymphocytes # (Manual) Basophils # (Manual) PT INR APTT Heparin Anti-Xa Level 0.76 H POC ABG pH POC ABG pCO2 POC ABG pO2 Sodium Potassium Chloride Carbon Dioxide BUN Creatinine Glucose POC Glucose 111 H 138 H Lactic Acid Calcium Phosphorus Magnesium Iron TIBC Ferritin AST ALT Total Creatine Kinase Total Protein Albumin Vitamin B12 Folate TSH Free T4 Urine WBC (Auto) Urine Creatinine Urine Chloride Urine Total Protein CSF VDRL Lymph Enumerat CD4/CD8 Absolute CD3 Count % CD4 Cells Absolute CD4 Count % CD8 Cells Absolute CD19 Count T.pallidum Ab (FTA-ABS) HIV-1 RNA PCR copies/ml HIV-1 RNA (PCR) log Miscellaneous Test Crossmatch 09/25/18 09/25/18 09/25/18 03:45 04:24 14:20 WBC RBC Hgb 9.7 L Hct 29.4 L RDW Plt Count 104 L Seg Neuts % (Manual) Lymphocytes % (Manual) Monocytes % (Manual) Eosinophils % (Manual) Basophils % (Manual) Nucleated RBC % Seg Neutrophils # Man Abs Lymphs (Manual) Lymphocytes # (Manual) Basophils # (Manual) PT INR APTT Heparin Anti-Xa Level POC ABG pH 7.460 H POC ABG pCO2 32.9 L POC ABG pO2 Sodium Potassium 3.5 L Chloride 110.3 H Carbon Dioxide BUN Creatinine Glucose 105 H POC Glucose Lactic Acid Calcium 6.7 L Phosphorus Magnesium Iron TIBC Ferritin AST 633 H ALT 481 H Total Creatine Kinase Total Protein 4.8 L D Albumin 1.9 L Vitamin B12 Folate TSH Free T4 Urine WBC (Auto) Urine Creatinine Urine Chloride Urine Total Protein CSF VDRL Lymph Enumerat CD4/CD8 Absolute CD3 Count % CD4 Cells Absolute CD4 Count % CD8 Cells Absolute CD19 Count T.pallidum Ab (FTA-ABS) HIV-1 RNA PCR copies/ml HIV-1 RNA (PCR) log Miscellaneous Test Crossmatch 09/26/18 09/26/18 09/26/18 06:15 06:15 10:43 WBC 1.2 L* RBC 3.32 L Hgb 9.2 L Hct 28.6 L RDW Plt Count 97 L Seg Neuts % (Manual) 24.0 L Lymphocytes % (Manual) 43.0 H Monocytes % (Manual) 19.0 H Eosinophils % (Manual) 8.0 H Basophils % (Manual) 2.0 H Nucleated RBC % 3.0 H Seg Neutrophils # Man 0.0 L Abs Lymphs (Manual) Lymphocytes # (Manual) 0.0 L Basophils # (Manual) PT INR APTT Heparin Anti-Xa Level POC ABG pH 7.459 H POC ABG pCO2 POC ABG pO2 141 H Sodium Potassium Chloride 112.8 H Carbon Dioxide BUN Creatinine Glucose 110 H POC Glucose Lactic Acid Calcium 7.0 L Phosphorus 0.90 L* Magnesium Iron TIBC Ferritin AST 362 H ALT 360 H Total Creatine Kinase Total Protein 4.9 L Albumin 1.5 L Vitamin B12 Folate TSH Free T4 Urine WBC (Auto) Urine Creatinine Urine Chloride Urine Total Protein CSF VDRL Lymph Enumerat CD4/CD8 Absolute CD3 Count % CD4 Cells Absolute CD4 Count % CD8 Cells Absolute CD19 Count T.pallidum Ab (FTA-ABS) HIV-1 RNA PCR copies/ml HIV-1 RNA (PCR) log Miscellaneous Test Crossmatch 09/26/18 09/27/18 09/28/18 13:56 04:11 07:49 WBC RBC Hgb 9.1 L Hct 29.1 L RDW Plt Count 96 L Seg Neuts % (Manual) Lymphocytes % (Manual) Monocytes % (Manual) Eosinophils % (Manual) Basophils % (Manual) Nucleated RBC % Seg Neutrophils # Man Abs Lymphs (Manual) Lymphocytes # (Manual) Basophils # (Manual) PT INR APTT Heparin Anti-Xa Level POC ABG pH POC ABG pCO2 POC ABG pO2 Sodium 146 H Potassium Chloride 111.6 H Carbon Dioxide BUN Creatinine Glucose POC Glucose 135 H Lactic Acid Calcium 7.4 L Phosphorus Magnesium Iron TIBC Ferritin AST ALT Total Creatine Kinase Total Protein Albumin Vitamin B12 Folate TSH Free T4 Urine WBC (Auto) Urine Creatinine Urine Chloride Urine Total Protein CSF VDRL Lymph Enumerat CD4/CD8 Absolute CD3 Count % CD4 Cells Absolute CD4 Count % CD8 Cells Absolute CD19 Count T.pallidum Ab (FTA-ABS) HIV-1 RNA PCR copies/ml HIV-1 RNA (PCR) log Miscellaneous Test Crossmatch 09/28/18 09/29/18 09/29/18 10:43 05:00 05:00 WBC 1.2 L* RBC 3.13 L Hgb 8.6 L Hct 27.3 L RDW Plt Count 137 L Seg Neuts % (Manual) Lymphocytes % (Manual) Monocytes % (Manual) 16.0 H Eosinophils % (Manual) Basophils % (Manual) Nucleated RBC % 4.0 H Seg Neutrophils # Man 0.5 L Abs Lymphs (Manual) Lymphocytes # (Manual) 0.3 L Basophils # (Manual) PT INR APTT Heparin Anti-Xa Level POC ABG pH 7.300 L POC ABG pCO2 53.9 H POC ABG pO2 Sodium 147 H Potassium 3.4 L Chloride 114.5 H Carbon Dioxide BUN Creatinine Glucose POC Glucose Lactic Acid Calcium 7.7 L Phosphorus Magnesium Iron TIBC Ferritin AST 69 H ALT 110 H Total Creatine Kinase Total Protein 5.2 L Albumin 1.9 L Vitamin B12 Folate TSH Free T4 Urine WBC (Auto) Urine Creatinine Urine Chloride Urine Total Protein CSF VDRL Lymph Enumerat CD4/CD8 Absolute CD3 Count % CD4 Cells Absolute CD4 Count % CD8 Cells Absolute CD19 Count T.pallidum Ab (FTA-ABS) HIV-1 RNA PCR copies/ml HIV-1 RNA (PCR) log Miscellaneous Test Crossmatch 09/29/18 09/29/18 09/30/18 06:07 13:22 05:19 WBC 0.9 L* RBC 3.03 L Hgb 8.6 L Hct 25.9 L RDW Plt Count Seg Neuts % (Manual) Lymphocytes % (Manual) Monocytes % (Manual) Eosinophils % (Manual) Basophils % (Manual) Nucleated RBC % Seg Neutrophils # Man Abs Lymphs (Manual) Lymphocytes # (Manual) Basophils # (Manual) PT INR APTT Heparin Anti-Xa Level POC ABG pH POC ABG pCO2 46.9 H POC ABG pO2 Sodium Potassium Chloride Carbon Dioxide BUN Creatinine Glucose POC Glucose 109 H Lactic Acid Calcium Phosphorus Magnesium Iron TIBC Ferritin AST ALT Total Creatine Kinase Total Protein Albumin Vitamin B12 Folate TSH Free T4 Urine WBC (Auto) Urine Creatinine Urine Chloride Urine Total Protein CSF VDRL Lymph Enumerat CD4/CD8 Absolute CD3 Count % CD4 Cells Absolute CD4 Count % CD8 Cells Absolute CD19 Count T.pallidum Ab (FTA-ABS) HIV-1 RNA PCR copies/ml HIV-1 RNA (PCR) log Miscellaneous Test Crossmatch 09/30/18 09/30/18 09/30/18 05:19 11:14 23:28 WBC RBC Hgb Hct RDW Plt Count Seg Neuts % (Manual) Lymphocytes % (Manual) Monocytes % (Manual) Eosinophils % (Manual) Basophils % (Manual) Nucleated RBC % Seg Neutrophils # Man Abs Lymphs (Manual) Lymphocytes # (Manual) Basophils # (Manual) PT INR APTT Heparin Anti-Xa Level 0.72 H POC ABG pH POC ABG pCO2 46.6 H POC ABG pO2 Sodium 150 H Potassium Chloride 115.2 H Carbon Dioxide BUN Creatinine Glucose POC Glucose Lactic Acid Calcium 7.9 L Phosphorus Magnesium Iron TIBC Ferritin AST ALT Total Creatine Kinase Total Protein Albumin Vitamin B12 Folate TSH Free T4 Urine WBC (Auto) Urine Creatinine Urine Chloride Urine Total Protein CSF VDRL Lymph Enumerat CD4/CD8 Absolute CD3 Count % CD4 Cells Absolute CD4 Count % CD8 Cells Absolute CD19 Count T.pallidum Ab (FTA-ABS) HIV-1 RNA PCR copies/ml HIV-1 RNA (PCR) log Miscellaneous Test Crossmatch 10/01/18 10/01/18 10/02/18 04:55 04:55 07:15 WBC 0.9 L* 0.7 L* RBC 3.01 L 2.92 L Hgb 8.4 L 8.4 L Hct 26.0 L 24.9 L RDW Plt Count Seg Neuts % (Manual) Lymphocytes % (Manual) Monocytes % (Manual) Eosinophils % (Manual) Basophils % (Manual) Nucleated RBC % Seg Neutrophils # Man Abs Lymphs (Manual) Lymphocytes # (Manual) Basophils # (Manual) PT INR APTT Heparin Anti-Xa Level POC ABG pH POC ABG pCO2 POC ABG pO2 Sodium 147 H Potassium 3.4 L Chloride 113.1 H Carbon Dioxide BUN 22 H Creatinine Glucose POC Glucose Lactic Acid Calcium 7.3 L Phosphorus Magnesium Iron TIBC Ferritin AST ALT Total Creatine Kinase Total Protein Albumin Vitamin B12 Folate TSH Free T4 Urine WBC (Auto) Urine Creatinine Urine Chloride Urine Total Protein CSF VDRL Lymph Enumerat CD4/CD8 Absolute CD3 Count % CD4 Cells Absolute CD4 Count % CD8 Cells Absolute CD19 Count T.pallidum Ab (FTA-ABS) HIV-1 RNA PCR copies/ml HIV-1 RNA (PCR) log Miscellaneous Test Crossmatch 10/02/18 10/03/18 10/03/18 07:15 06:12 06:12 WBC 0.8 L* RBC 2.96 L Hgb 8.5 L Hct 25.9 L RDW 15.4 H Plt Count Seg Neuts % (Manual) Lymphocytes % (Manual) Monocytes % (Manual) Eosinophils % (Manual) Basophils % (Manual) Nucleated RBC % Seg Neutrophils # Man Abs Lymphs (Manual) Lymphocytes # (Manual) Basophils # (Manual) PT INR APTT Heparin Anti-Xa Level POC ABG pH POC ABG pCO2 POC ABG pO2 Sodium Potassium 3.4 L 3.4 L Chloride 108.3 H Carbon Dioxide BUN Creatinine Glucose POC Glucose Lactic Acid Calcium 7.6 L 7.4 L Phosphorus Magnesium Iron TIBC Ferritin AST ALT Total Creatine Kinase Total Protein Albumin Vitamin B12 Folate TSH Free T4 Urine WBC (Auto) Urine Creatinine Urine Chloride Urine Total Protein CSF VDRL Lymph Enumerat CD4/CD8 Absolute CD3 Count % CD4 Cells Absolute CD4 Count % CD8 Cells Absolute CD19 Count T.pallidum Ab (FTA-ABS) HIV-1 RNA PCR copies/ml HIV-1 RNA (PCR) log Miscellaneous Test Crossmatch 10/03/18 10/03/18 10/04/18 11:45 13:23 01:40 WBC RBC Hgb Hct RDW Plt Count Seg Neuts % (Manual) Lymphocytes % (Manual) Monocytes % (Manual) Eosinophils % (Manual) Basophils % (Manual) Nucleated RBC % Seg Neutrophils # Man Abs Lymphs (Manual) Lymphocytes # (Manual) Basophils # (Manual) PT INR APTT Heparin Anti-Xa Level 1.34 H 0.26 L POC ABG pH POC ABG pCO2 POC ABG pO2 Sodium Potassium Chloride Carbon Dioxide BUN Creatinine Glucose POC Glucose Lactic Acid Calcium Phosphorus Magnesium 1.40 L Iron TIBC Ferritin AST ALT Total Creatine Kinase Total Protein Albumin Vitamin B12 Folate TSH Free T4 Urine WBC (Auto) Urine Creatinine Urine Chloride Urine Total Protein CSF VDRL Lymph Enumerat CD4/CD8 Absolute CD3 Count % CD4 Cells Absolute CD4 Count % CD8 Cells Absolute CD19 Count T.pallidum Ab (FTA-ABS) HIV-1 RNA PCR copies/ml HIV-1 RNA (PCR) log Miscellaneous Test Crossmatch 10/04/18 10/04/18 10/06/18 04:45 04:45 09:40 WBC 0.8 L* RBC 3.11 L Hgb 9.0 L Hct 27.4 L RDW 15.4 H Plt Count Seg Neuts % (Manual) Lymphocytes % (Manual) Monocytes % (Manual) Eosinophils % (Manual) Basophils % (Manual) Nucleated RBC % Seg Neutrophils # Man Abs Lymphs (Manual) Lymphocytes # (Manual) Basophils # (Manual) PT INR APTT Heparin Anti-Xa Level POC ABG pH POC ABG pCO2 POC ABG pO2 Sodium Potassium Chloride Carbon Dioxide BUN Creatinine 0.7 L Glucose POC Glucose Lactic Acid Calcium 7.5 L Phosphorus Magnesium Iron 35 L TIBC 157 L Ferritin AST ALT Total Creatine Kinase Total Protein Albumin Vitamin B12 Folate TSH Free T4 Urine WBC (Auto) Urine Creatinine Urine Chloride Urine Total Protein CSF VDRL Lymph Enumerat CD4/CD8 Absolute CD3 Count % CD4 Cells Absolute CD4 Count % CD8 Cells Absolute CD19 Count T.pallidum Ab (FTA-ABS) HIV-1 RNA PCR copies/ml HIV-1 RNA (PCR) log Miscellaneous Test Crossmatch 10/06/18 10/06/18 10/07/18 09:40 09:40 04:20 WBC 1.1 L* RBC 3.07 L Hgb 9.1 L Hct 27.3 L RDW 20.3 H Plt Count Seg Neuts % (Manual) Lymphocytes % (Manual) Monocytes % (Manual) Eosinophils % (Manual) Basophils % (Manual) Nucleated RBC % Seg Neutrophils # Man 0.7 L Abs Lymphs (Manual) Lymphocytes # (Manual) 0.3 L Basophils # (Manual) PT INR APTT Heparin Anti-Xa Level POC ABG pH POC ABG pCO2 POC ABG pO2 Sodium Potassium Chloride Carbon Dioxide BUN Creatinine Glucose POC Glucose Lactic Acid Calcium Phosphorus Magnesium Iron TIBC Ferritin 1126.0 H AST ALT Total Creatine Kinase Total Protein Albumin Vitamin B12 Folate 6.71 L TSH Free T4 Urine WBC (Auto) Urine Creatinine Urine Chloride Urine Total Protein CSF VDRL Lymph Enumerat CD4/CD8 Absolute CD3 Count % CD4 Cells Absolute CD4 Count % CD8 Cells Absolute CD19 Count T.pallidum Ab (FTA-ABS) HIV-1 RNA PCR copies/ml HIV-1 RNA (PCR) log Miscellaneous Test Crossmatch 10/07/18 10/07/18 10/09/18 04:20 15:38 04:20 WBC 1.1 L* RBC 3.35 L Hgb 9.9 L Hct 30.1 L RDW 21.4 H Plt Count Seg Neuts % (Manual) 19.0 L Lymphocytes % (Manual) 42.0 H Monocytes % (Manual) 18.0 H Eosinophils % (Manual) 15.0 H Basophils % (Manual) 2.0 H Nucleated RBC % Seg Neutrophils # Man 0.2 L Abs Lymphs (Manual) Lymphocytes # (Manual) 0.5 L Basophils # (Manual) PT INR APTT Heparin Anti-Xa Level POC ABG pH 7.516 H POC ABG pCO2 32.1 L POC ABG pO2 Sodium Potassium Chloride Carbon Dioxide BUN Creatinine 0.7 L Glucose POC Glucose Lactic Acid Calcium 7.9 L Phosphorus Magnesium Iron TIBC Ferritin AST ALT Total Creatine Kinase Total Protein 5.5 L Albumin 2.2 L Vitamin B12 Folate TSH Free T4 Urine WBC (Auto) Urine Creatinine Urine Chloride Urine Total Protein CSF VDRL Lymph Enumerat CD4/CD8 Absolute CD3 Count % CD4 Cells Absolute CD4 Count % CD8 Cells Absolute CD19 Count T.pallidum Ab (FTA-ABS) HIV-1 RNA PCR copies/ml HIV-1 RNA (PCR) log Miscellaneous Test Crossmatch 10/09/18 10/09/18 10/09/18 04:20 11:48 17:31 WBC RBC Hgb Hct RDW Plt Count Seg Neuts % (Manual) Lymphocytes % (Manual) Monocytes % (Manual) Eosinophils % (Manual) Basophils % (Manual) Nucleated RBC % Seg Neutrophils # Man Abs Lymphs (Manual) Lymphocytes # (Manual) Basophils # (Manual) PT INR APTT Heparin Anti-Xa Level POC ABG pH POC ABG pCO2 POC ABG pO2 Sodium Potassium 5.4 H Chloride Carbon Dioxide 21 L BUN 55 H 72 H Creatinine 3.8 H D 4.5 H Glucose 118 H POC Glucose 124 H Lactic Acid Calcium 8.3 L 8.2 L Phosphorus Magnesium Iron TIBC Ferritin AST ALT Total Creatine Kinase Total Protein Albumin Vitamin B12 Folate TSH Free T4 Urine WBC (Auto) Urine Creatinine Urine Chloride Urine Total Protein CSF VDRL Lymph Enumerat CD4/CD8 Absolute CD3 Count % CD4 Cells Absolute CD4 Count % CD8 Cells Absolute CD19 Count T.pallidum Ab (FTA-ABS) HIV-1 RNA PCR copies/ml HIV-1 RNA (PCR) log Miscellaneous Test Crossmatch 10/10/18 10/10/18 10/10/18 08:09 08:35 10:54 WBC 1.1 L* RBC 3.16 L Hgb 9.6 L Hct 28.8 L RDW 21.2 H Plt Count Seg Neuts % (Manual) 27.0 L Lymphocytes % (Manual) Monocytes % (Manual) 9.0 H Eosinophils % (Manual) 18.0 H Basophils % (Manual) 12.0 H Nucleated RBC % Seg Neutrophils # Man 0.3 L Abs Lymphs (Manual) Lymphocytes # (Manual) 0.3 L Basophils # (Manual) PT 16.0 H INR 1.20 H APTT Heparin Anti-Xa Level POC ABG pH POC ABG pCO2 POC ABG pO2 Sodium Potassium 5.5 H Chloride Carbon Dioxide 20 L BUN 83 H Creatinine 5.5 H Glucose 119 H POC Glucose Lactic Acid Calcium Phosphorus Magnesium Iron TIBC Ferritin AST ALT Total Creatine Kinase Total Protein Albumin Vitamin B12 Folate TSH Free T4 Urine WBC (Auto) Urine Creatinine Urine Chloride Urine Total Protein CSF VDRL Lymph Enumerat CD4/CD8 Absolute CD3 Count % CD4 Cells Absolute CD4 Count % CD8 Cells Absolute CD19 Count T.pallidum Ab (FTA-ABS) HIV-1 RNA PCR copies/ml HIV-1 RNA (PCR) log Miscellaneous Test Crossmatch 10/10/18 10/10/18 10/11/18 Unknown Unknown 05:20 WBC 1.2 L* RBC 2.89 L Hgb 8.7 L Hct 26.0 L RDW 20.1 H Plt Count Seg Neuts % (Manual) Lymphocytes % (Manual) 8.0 L Monocytes % (Manual) 12.0 H Eosinophils % (Manual) 24.0 H Basophils % (Manual) 4.0 H Nucleated RBC % Seg Neutrophils # Man 0.6 L Abs Lymphs (Manual) Lymphocytes # (Manual) 0.1 L Basophils # (Manual) PT INR APTT Heparin Anti-Xa Level POC ABG pH POC ABG pCO2 POC ABG pO2 Sodium Potassium Chloride Carbon Dioxide BUN Creatinine Glucose POC Glucose Lactic Acid Calcium Phosphorus Magnesium Iron TIBC Ferritin AST ALT Total Creatine Kinase Total Protein Albumin Vitamin B12 Folate TSH Free T4 Urine WBC (Auto) Urine Creatinine Urine Chloride Urine Total Protein CSF VDRL Reactive 1:2 H Lymph Enumerat CD4/CD8 Absolute CD3 Count % CD4 Cells Absolute CD4 Count % CD8 Cells Absolute CD19 Count T.pallidum Ab (FTA-ABS) HIV-1 RNA PCR copies/ml HIV-1 RNA (PCR) log Miscellaneous Test Flexitest 1 H Crossmatch 10/11/18 10/11/18 10/11/18 05:20 05:40 05:40 WBC RBC Hgb Hct RDW Plt Count Seg Neuts % (Manual) Lymphocytes % (Manual) Monocytes % (Manual) Eosinophils % (Manual) Basophils % (Manual) Nucleated RBC % Seg Neutrophils # Man Abs Lymphs (Manual) Lymphocytes # (Manual) Basophils # (Manual) PT INR APTT Heparin Anti-Xa Level POC ABG pH POC ABG pCO2 POC ABG pO2 Sodium Potassium Chloride Carbon Dioxide 20 L BUN 102 H Creatinine 6.7 H Glucose POC Glucose Lactic Acid Calcium 8.3 L Phosphorus Magnesium Iron TIBC Ferritin AST ALT Total Creatine Kinase Total Protein Albumin Vitamin B12 Folate TSH Free T4 Urine WBC (Auto) 8.0 H Urine Creatinine 57.5 H Urine Chloride 35.1 L Urine Total Protein 44 H CSF VDRL Lymph Enumerat CD4/CD8 Absolute CD3 Count % CD4 Cells Absolute CD4 Count % CD8 Cells Absolute CD19 Count T.pallidum Ab (FTA-ABS) HIV-1 RNA PCR copies/ml HIV-1 RNA (PCR) log Miscellaneous Test Crossmatch 10/11/18 10/12/18 10/12/18 16:41 03:30 03:30 WBC 0.9 L* RBC 2.78 L Hgb 8.3 L Hct 25.1 L RDW 19.9 H Plt Count Seg Neuts % (Manual) Lymphocytes % (Manual) Monocytes % (Manual) Eosinophils % (Manual) 20.0 H Basophils % (Manual) Nucleated RBC % Seg Neutrophils # Man 0.5 L Abs Lymphs (Manual) Lymphocytes # (Manual) 0.3 L Basophils # (Manual) PT INR APTT Heparin Anti-Xa Level POC ABG pH 7.318 L POC ABG pCO2 POC ABG pO2 Sodium Potassium Chloride Carbon Dioxide 18 L BUN 111 H Creatinine 7.3 H Glucose POC Glucose Lactic Acid Calcium 7.9 L Phosphorus Magnesium Iron TIBC Ferritin AST ALT Total Creatine Kinase Total Protein Albumin Vitamin B12 Folate TSH Free T4 Urine WBC (Auto) Urine Creatinine Urine Chloride Urine Total Protein CSF VDRL Lymph Enumerat CD4/CD8 Absolute CD3 Count % CD4 Cells Absolute CD4 Count % CD8 Cells Absolute CD19 Count T.pallidum Ab (FTA-ABS) HIV-1 RNA PCR copies/ml HIV-1 RNA (PCR) log Miscellaneous Test Crossmatch 10/12/18 10/13/18 10/13/18 13:30 04:00 04:05 WBC 1.0 L* RBC 2.68 L Hgb 8.1 L Hct 24.3 L RDW 19.7 H Plt Count Seg Neuts % (Manual) 36.7 L Lymphocytes % (Manual) Monocytes % (Manual) Eosinophils % (Manual) 16.7 H Basophils % (Manual) 16.7 H Nucleated RBC % Seg Neutrophils # Man 0.4 L Abs Lymphs (Manual) Lymphocytes # (Manual) 0.2 L Basophils # (Manual) 0.2 H PT INR APTT Heparin Anti-Xa Level POC ABG pH 7.336 L POC ABG pCO2 31.5 L POC ABG pO2 122 H Sodium Potassium Chloride Carbon Dioxide 17 L BUN 118 H Creatinine 7.8 H Glucose 102 H POC Glucose Lactic Acid Calcium 7.8 L Phosphorus Magnesium Iron TIBC Ferritin AST ALT Total Creatine Kinase Total Protein Albumin Vitamin B12 Folate TSH Free T4 Urine WBC (Auto) Urine Creatinine Urine Chloride Urine Total Protein CSF VDRL Lymph Enumerat CD4/CD8 Absolute CD3 Count % CD4 Cells Absolute CD4 Count % CD8 Cells Absolute CD19 Count T.pallidum Ab (FTA-ABS) HIV-1 RNA PCR copies/ml HIV-1 RNA (PCR) log Miscellaneous Test Crossmatch 10/13/18 10/14/18 10/14/18 18:44 00:01 05:20 WBC RBC Hgb Hct RDW Plt Count Seg Neuts % (Manual) Lymphocytes % (Manual) Monocytes % (Manual) Eosinophils % (Manual) Basophils % (Manual) Nucleated RBC % Seg Neutrophils # Man Abs Lymphs (Manual) Lymphocytes # (Manual) Basophils # (Manual) PT INR APTT Heparin Anti-Xa Level POC ABG pH POC ABG pCO2 POC ABG pO2 Sodium Potassium Chloride Carbon Dioxide BUN Creatinine Glucose POC Glucose 141 H 134 H 171 H Lactic Acid Calcium Phosphorus Magnesium Iron TIBC Ferritin AST ALT Total Creatine Kinase Total Protein Albumin Vitamin B12 Folate TSH Free T4 Urine WBC (Auto) Urine Creatinine Urine Chloride Urine Total Protein CSF VDRL Lymph Enumerat CD4/CD8 Absolute CD3 Count % CD4 Cells Absolute CD4 Count % CD8 Cells Absolute CD19 Count T.pallidum Ab (FTA-ABS) HIV-1 RNA PCR copies/ml HIV-1 RNA (PCR) log Miscellaneous Test Crossmatch 10/14/18 10/14/18 10/14/18 09:39 09:40 11:37 WBC RBC Hgb Hct RDW Plt Count Seg Neuts % (Manual) Lymphocytes % (Manual) Monocytes % (Manual) Eosinophils % (Manual) Basophils % (Manual) Nucleated RBC % Seg Neutrophils # Man Abs Lymphs (Manual) Lymphocytes # (Manual) Basophils # (Manual) PT INR APTT Heparin Anti-Xa Level POC ABG pH POC ABG pCO2 POC ABG pO2 Sodium 147 H Potassium 3.4 L Chloride 108.1 H Carbon Dioxide 16 L BUN 124 H Creatinine 6.7 H Glucose 144 H POC Glucose 164 H Lactic Acid Calcium 7.8 L Phosphorus 8.50 H Magnesium Iron TIBC Ferritin AST ALT Total Creatine Kinase Total Protein Albumin Vitamin B12 Folate TSH Free T4 Urine WBC (Auto) Urine Creatinine Urine Chloride Urine Total Protein CSF VDRL Lymph Enumerat CD4/CD8 Absolute CD3 Count % CD4 Cells Absolute CD4 Count % CD8 Cells Absolute CD19 Count T.pallidum Ab (FTA-ABS) HIV-1 RNA PCR copies/ml HIV-1 RNA (PCR) log Miscellaneous Test Crossmatch 10/14/18 10/14/18 10/15/18 Unknown Unknown 00:05 WBC 0.5 L* RBC 2.80 L Hgb 8.2 L Hct 25.2 L RDW 19.7 H Plt Count Seg Neuts % (Manual) Lymphocytes % (Manual) 10.0 L Monocytes % (Manual) Eosinophils % (Manual) 10.0 H Basophils % (Manual) Nucleated RBC % Seg Neutrophils # Man 0.4 L Abs Lymphs (Manual) Lymphocytes # (Manual) 0.1 L Basophils # (Manual) PT INR APTT Heparin Anti-Xa Level POC ABG pH POC ABG pCO2 POC ABG pO2 Sodium Potassium Chloride Carbon Dioxide 13 L BUN 126 H Creatinine 7.7 H Glucose 153 H POC Glucose 190 H Lactic Acid Calcium 7.8 L Phosphorus Magnesium Iron TIBC Ferritin AST ALT Total Creatine Kinase Total Protein Albumin Vitamin B12 Folate TSH Free T4 Urine WBC (Auto) Urine Creatinine Urine Chloride Urine Total Protein CSF VDRL Lymph Enumerat CD4/CD8 Absolute CD3 Count % CD4 Cells Absolute CD4 Count % CD8 Cells Absolute CD19 Count T.pallidum Ab (FTA-ABS) HIV-1 RNA PCR copies/ml HIV-1 RNA (PCR) log Miscellaneous Test Crossmatch 10/15/18 10/15/18 10/15/18 04:15 04:15 05:03 WBC 0.8 L* RBC 2.73 L Hgb 8.2 L Hct 24.4 L RDW 18.8 H Plt Count Seg Neuts % (Manual) Lymphocytes % (Manual) Monocytes % (Manual) Eosinophils % (Manual) Basophils % (Manual) Nucleated RBC % Seg Neutrophils # Man Abs Lymphs (Manual) Lymphocytes # (Manual) Basophils # (Manual) PT INR APTT Heparin Anti-Xa Level POC ABG pH POC ABG pCO2 POC ABG pO2 Sodium 148 H Potassium 2.9 L* Chloride 108.5 H Carbon Dioxide 17 L BUN 127 H Creatinine 6.1 H Glucose 154 H POC Glucose 170 H Lactic Acid Calcium 7.7 L Phosphorus Magnesium Iron TIBC Ferritin AST ALT Total Creatine Kinase Total Protein 6.0 L Albumin 2.3 L Vitamin B12 Folate TSH Free T4 Urine WBC (Auto) Urine Creatinine Urine Chloride Urine Total Protein CSF VDRL Lymph Enumerat CD4/CD8 Absolute CD3 Count % CD4 Cells Absolute CD4 Count % CD8 Cells Absolute CD19 Count T.pallidum Ab (FTA-ABS) HIV-1 RNA PCR copies/ml HIV-1 RNA (PCR) log Miscellaneous Test Crossmatch 10/15/18 10/15/18 10/15/18 12:23 17:42 17:49 WBC RBC Hgb Hct RDW Plt Count Seg Neuts % (Manual) Lymphocytes % (Manual) Monocytes % (Manual) Eosinophils % (Manual) Basophils % (Manual) Nucleated RBC % Seg Neutrophils # Man Abs Lymphs (Manual) Lymphocytes # (Manual) Basophils # (Manual) PT INR APTT Heparin Anti-Xa Level POC ABG pH POC ABG pCO2 POC ABG pO2 Sodium 146 H Potassium 3.0 L Chloride 109.4 H Carbon Dioxide 16 L BUN 124 H Creatinine 5.6 H Glucose 162 H POC Glucose 180 H 173 H Lactic Acid Calcium 7.5 L Phosphorus Magnesium Iron TIBC Ferritin AST ALT Total Creatine Kinase Total Protein Albumin Vitamin B12 Folate TSH Free T4 Urine WBC (Auto) Urine Creatinine Urine Chloride Urine Total Protein CSF VDRL Lymph Enumerat CD4/CD8 Absolute CD3 Count % CD4 Cells Absolute CD4 Count % CD8 Cells Absolute CD19 Count T.pallidum Ab (FTA-ABS) HIV-1 RNA PCR copies/ml HIV-1 RNA (PCR) log Miscellaneous Test Crossmatch 10/15/18 10/16/18 10/16/18 23:56 05:37 07:50 WBC 1.1 L* RBC 2.70 L Hgb 8.0 L Hct 24.4 L RDW 18.9 H Plt Count Seg Neuts % (Manual) Lymphocytes % (Manual) Monocytes % (Manual) 8.0 H Eosinophils % (Manual) Basophils % (Manual) Nucleated RBC % Seg Neutrophils # Man 0.7 L Abs Lymphs (Manual) Lymphocytes # (Manual) 0.2 L Basophils # (Manual) PT INR APTT Heparin Anti-Xa Level POC ABG pH POC ABG pCO2 POC ABG pO2 Sodium Potassium Chloride Carbon Dioxide BUN Creatinine Glucose POC Glucose 164 H 152 H Lactic Acid Calcium Phosphorus Magnesium Iron TIBC Ferritin AST ALT Total Creatine Kinase Total Protein Albumin Vitamin B12 Folate TSH Free T4 Urine WBC (Auto) Urine Creatinine Urine Chloride Urine Total Protein CSF VDRL Lymph Enumerat CD4/CD8 Absolute CD3 Count % CD4 Cells Absolute CD4 Count % CD8 Cells Absolute CD19 Count T.pallidum Ab (FTA-ABS) HIV-1 RNA PCR copies/ml HIV-1 RNA (PCR) log Miscellaneous Test Crossmatch 10/16/18 10/16/18 10/16/18 07:50 12:35 18:00 WBC RBC Hgb Hct RDW Plt Count Seg Neuts % (Manual) Lymphocytes % (Manual) Monocytes % (Manual) Eosinophils % (Manual) Basophils % (Manual) Nucleated RBC % Seg Neutrophils # Man Abs Lymphs (Manual) Lymphocytes # (Manual) Basophils # (Manual) PT INR APTT Heparin Anti-Xa Level POC ABG pH POC ABG pCO2 POC ABG pO2 Sodium 147 H Potassium 3.0 L Chloride Carbon Dioxide 15 L BUN 143 H Creatinine 6.2 H Glucose 182 H POC Glucose 122 H 160 H Lactic Acid Calcium 8.1 L Phosphorus Magnesium Iron TIBC Ferritin AST ALT Total Creatine Kinase Total Protein Albumin Vitamin B12 Folate TSH Free T4 Urine WBC (Auto) Urine Creatinine Urine Chloride Urine Total Protein CSF VDRL Lymph Enumerat CD4/CD8 Absolute CD3 Count % CD4 Cells Absolute CD4 Count % CD8 Cells Absolute CD19 Count T.pallidum Ab (FTA-ABS) HIV-1 RNA PCR copies/ml HIV-1 RNA (PCR) log Miscellaneous Test Crossmatch 10/16/18 10/17/18 10/17/18 23:32 05:03 11:32 WBC RBC Hgb Hct RDW Plt Count Seg Neuts % (Manual) Lymphocytes % (Manual) Monocytes % (Manual) Eosinophils % (Manual) Basophils % (Manual) Nucleated RBC % Seg Neutrophils # Man Abs Lymphs (Manual) Lymphocytes # (Manual) Basophils # (Manual) PT INR APTT Heparin Anti-Xa Level POC ABG pH POC ABG pCO2 POC ABG pO2 Sodium Potassium Chloride Carbon Dioxide BUN Creatinine Glucose POC Glucose 131 H 112 H 149 H Lactic Acid Calcium Phosphorus Magnesium Iron TIBC Ferritin AST ALT Total Creatine Kinase Total Protein Albumin Vitamin B12 Folate TSH Free T4 Urine WBC (Auto) Urine Creatinine Urine Chloride Urine Total Protein CSF VDRL Lymph Enumerat CD4/CD8 Absolute CD3 Count % CD4 Cells Absolute CD4 Count % CD8 Cells Absolute CD19 Count T.pallidum Ab (FTA-ABS) HIV-1 RNA PCR copies/ml HIV-1 RNA (PCR) log Miscellaneous Test Crossmatch 10/19/18 10/19/18 10/19/18 04:00 06:15 14:54 WBC 0.7 L* 0.7 L* RBC 2.77 L 2.77 L Hgb 7.9 L 8.3 L Hct 24.7 L 24.6 L RDW 19.4 H 19.2 H Plt Count 112 L 105 L Seg Neuts % (Manual) Lymphocytes % (Manual) Monocytes % (Manual) 17.0 H 16.0 H Eosinophils % (Manual) 6.0 H Basophils % (Manual) 2.0 H Nucleated RBC % Seg Neutrophils # Man 0.3 L 0.3 L Abs Lymphs (Manual) Lymphocytes # (Manual) 0.2 L 0.2 L Basophils # (Manual) PT INR APTT Heparin Anti-Xa Level POC ABG pH POC ABG pCO2 POC ABG pO2 Sodium Potassium 2.9 L* Chloride Carbon Dioxide 19 L BUN 107 H Creatinine 5.9 H Glucose POC Glucose Lactic Acid Calcium 7.9 L Phosphorus Magnesium Iron TIBC Ferritin AST 54 H ALT Total Creatine Kinase Total Protein 5.7 L Albumin 2.5 L Vitamin B12 Folate TSH Free T4 Urine WBC (Auto) Urine Creatinine Urine Chloride Urine Total Protein CSF VDRL Lymph Enumerat CD4/CD8 Absolute CD3 Count % CD4 Cells Absolute CD4 Count % CD8 Cells Absolute CD19 Count T.pallidum Ab (FTA-ABS) HIV-1 RNA PCR copies/ml HIV-1 RNA (PCR) log Miscellaneous Test Crossmatch 10/20/18 10/20/18 10/21/18 05:34 12:17 06:00 WBC RBC Hgb Hct RDW Plt Count Seg Neuts % (Manual) Lymphocytes % (Manual) Monocytes % (Manual) Eosinophils % (Manual) Basophils % (Manual) Nucleated RBC % Seg Neutrophils # Man Abs Lymphs (Manual) Lymphocytes # (Manual) Basophils # (Manual) PT INR APTT Heparin Anti-Xa Level POC ABG pH POC ABG pCO2 33.3 L POC ABG pO2 107 H Sodium Potassium 3.0 L Chloride Carbon Dioxide 20 L BUN 94 H Creatinine 6.1 H Glucose POC Glucose 113 H Lactic Acid Calcium 7.9 L Phosphorus Magnesium Iron TIBC Ferritin AST ALT Total Creatine Kinase Total Protein Albumin Vitamin B12 Folate TSH Free T4 Urine WBC (Auto) Urine Creatinine Urine Chloride Urine Total Protein CSF VDRL Lymph Enumerat CD4/CD8 Absolute CD3 Count % CD4 Cells Absolute CD4 Count % CD8 Cells Absolute CD19 Count T.pallidum Ab (FTA-ABS) HIV-1 RNA PCR copies/ml HIV-1 RNA (PCR) log Miscellaneous Test Crossmatch 10/23/18 10/24/18 10/24/18 14:34 04:50 04:50 WBC 0.9 L* 0.9 L* RBC 2.33 L 2.24 L Hgb 7.1 L 6.8 L Hct 21.3 L 20.7 L RDW 20.1 H 20.1 H Plt Count Seg Neuts % (Manual) Lymphocytes % (Manual) Monocytes % (Manual) 18.0 H 16.0 H Eosinophils % (Manual) Basophils % (Manual) Nucleated RBC % Seg Neutrophils # Man 0.6 L 0.5 L Abs Lymphs (Manual) Lymphocytes # (Manual) 0.2 L 0.3 L Basophils # (Manual) PT INR APTT Heparin Anti-Xa Level POC ABG pH POC ABG pCO2 POC ABG pO2 Sodium Potassium 3.0 L Chloride Carbon Dioxide 19 L BUN 94 H Creatinine 7.3 H Glucose POC Glucose Lactic Acid Calcium 8.0 L Phosphorus Magnesium Iron TIBC Ferritin AST ALT Total Creatine Kinase Total Protein Albumin Vitamin B12 Folate TSH Free T4 Urine WBC (Auto) Urine Creatinine Urine Chloride Urine Total Protein CSF VDRL Lymph Enumerat CD4/CD8 Absolute CD3 Count % CD4 Cells Absolute CD4 Count % CD8 Cells Absolute CD19 Count T.pallidum Ab (FTA-ABS) HIV-1 RNA PCR copies/ml HIV-1 RNA (PCR) log Miscellaneous Test Crossmatch 10/24/18 10/25/18 10/25/18 11:15 05:20 09:25 WBC RBC Hgb Hct RDW Plt Count Seg Neuts % (Manual) Lymphocytes % (Manual) Monocytes % (Manual) Eosinophils % (Manual) Basophils % (Manual) Nucleated RBC % Seg Neutrophils # Man Abs Lymphs (Manual) Lymphocytes # (Manual) Basophils # (Manual) PT INR APTT Heparin Anti-Xa Level POC ABG pH POC ABG pCO2 POC ABG pO2 Sodium Potassium 3.0 L Chloride Carbon Dioxide 20 L BUN 69 H Creatinine 5.4 H Glucose POC Glucose Lactic Acid Calcium 7.9 L Phosphorus Magnesium Iron TIBC Ferritin AST ALT Total Creatine Kinase Total Protein Albumin Vitamin B12 Folate TSH Free T4 Urine WBC (Auto) Urine Creatinine Urine Chloride Urine Total Protein CSF VDRL Lymph Enumerat CD4/CD8 Absolute CD3 Count % CD4 Cells Absolute CD4 Count % CD8 Cells Absolute CD19 Count T.pallidum Ab (FTA-ABS) HIV-1 RNA PCR copies/ml HIV-1 RNA (PCR) log Miscellaneous Test Crossmatch See Detail See Detail Chest x-ray: image reviewed (clear lungs, ETT in good position) Allied health notes reviewed: nursing
--- NOTE | 2018-10-25 13:34 | XRay Report ---
AP CHEST: HISTORY: Status post tracheostomy The endotracheal tube and feeding tube have been removed. A tracheostomy has been placed at the level of the clavicles. Right arm PICC is unchanged. There is poor inspiration with bibasilar atelectatic changes. No evidence for pneumothorax or pneumomediastinum. Normal heart size. IMPRESSION: Tracheostomy placement. Otherwise, negative expiratory AP chest.
[2018-10-25] MEDS ORDERED: SIMPLE SYRUP FEEDTUBE PRN ×2 (14:02)
[2018-10-25] MEDS ORDERED: PANCREAZE DR 10,500 UNIT FEEDTUBE PRN (14:02)
[2018-10-25] MEDS ORDERED: SODIUM BICARBONATE FEEDTUBE PRN (14:02)
[2018-10-25] MEDS: KEPPRA PO SCH ×2 (14:04→21:33)
[2018-10-25] MEDS: PEPCID PO SCH (14:05)
[2018-10-25] MEDS: PREZISTA PO SCH (14:06)
[2018-10-25] MEDS: CORDARONE PO SCH (14:06)
[2018-10-25] MEDS: LOPRESSOR PO SCH ×2 (14:07→21:34)
[2018-10-25] MEDS: DIFLUCAN PO SCH (14:08)
[2018-10-25] MEDS: MEPRON PO SCH ×2 (14:08→21:34)
[2018-10-25] MEDS: NORVIR PO SCH (14:09)
[2018-10-25] MEDS: FOLVITE PO SCH (14:09)
[2018-10-25] MEDS: TIVICAY PO SCH (14:11)
[2018-10-25] MEDS: SODIUM CHLORIDE FLUSH SYRINGE 10 ML IV SCH ×2 (14:12→21:34)
[2018-10-25] MEDS: EMTRIVA PO SCH (14:13)
--- NOTE | 2018-10-25 14:37 | Progress Note ---
Assessment and Plan Cultures: 09/11/2018 blood culture: no growth 09/13/2018 serum cryptococcus ag neg 09/14/2018 CSF cryptococcus ag neg 09/14/2018 stool Nona 09/15/2018 stool +Giardia ag 09/19/2018 CSF cryptococcus ag neg 09/21/2018 tracheal aspirate culture: Nona albicans 09/23/2018 blood culture: No growth 09/23/2018 Fungal blood culture: no growth thus far 10/09/2018 blood culture: No growth A/P: 33 y/o male with no PMH; admitted on 09/11/2018 due to 4 days-AMS/behavioral changes, nausea, vomiting, diarrhea, weight loss and cough: 1) Low grade fevers: resolved ? likely IRIS related (ART started on 09/30) versus NGT-associated sinusitis/mastoiditis versus CMV encephalitis. shock resolved. Completed 10 days of Ceftriaxone, off since 10/03/2018. 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 WBC remains low could be from CMV v/s ganciclovir. Clinically better - CMV DNA PCR 09/16/2018 is 1,058,978, 6 log - CMV DNA PCR 09/26/2018 is 710K, 5.85 log - CMV DNA PCR 10/03/2018 is 262K, 5.4 log 3) Acute respiratory failure: still on the vent minimal settings, mainly due to mental status issues. PJP DFA negative. CXR stable without pneumonia. S/P trach and PEG 10/25/2018. 4) Acute encephalopathy: slighltly better; possibly from neurosyphilis and CMV confirmed encephalitis v/s metabolic etiology. Of note, MRI did not show ventriculitis. CSF YAYO virus DNA PCR neg. Toxo IgG negative. He has received 20 days of Pen G IV and Ganciclovir with minimal improvement, still somnolent and nystagmus noted ? neurosyphilis treatement failure ? other etiologies like metabolic, CVA. Discussed with neuro Dr Nazario EEG x 2 no epileptic activity - "Up to 4 EEGs over several months may be needed to capture interictal epileptiform activity". - repeat LP 10/10/3018 WBC 10, RBC 22K (traumatic), glu 47, prot 84 from 194, VDRL reactive 1:2 - Seizures reported on 10/09-10/10 - CT head done showed mild atrophy. No acute intracranial abnormalities. Paranasal sinus disease and new opacification of multiple mastoid air cells on the right and a few on the left suggesting acute mastoiditis. - MRI brain repeat 10/10 significant bilateral mastoiditis, generalized brain atrophy and stable paranasal sinusitis - CSF CMV DNA PCR on 10/10/2018 was 43,564 4.6 log - improving 5) Neurosyphilis: CSF VDRL positive, off Ceftriaxone and back on IV Penicillin completed 21 days. 6) Diarrhea: previously due to Giardiasis, in immunocompromised patient. Completed several days of Flagyl, stopped on 10/03/2018. 7) Oral candidiasis: on fluconazole, will need to continue as prophylaxis till immune reconstitution. Will decrease dose to 100 mg daily. Given diarrhea, will check stool for WBC and Giardia/Cryptosporidium. Diarrhea could also be related to AIDS enteropathy. 8) A.fib: cardiology following. On Amiodarone. 9) HIV/AIDS: ?newly diagnosed. Risk factor is MSM behavior. CD4=4. VL=50,700. 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 We started him on ART on 09/30/2018, watch closely for IRIS. F/U HIV PCR and CD4 count from 10/21/2018. 10) Neutropenia: likely from HIV/CMV myelosuppression. Also probably worse from ganciclovir. r/o disseminated MAC, thus far cultures negative. s/p neupogen 1 dose on 10/05/2018 11) Acute renal failure: started on HD. Nephrology following. Off Tenofovir. 12) NGT-associated sinusitis/mastoiditis, fully treated for 7 days. NGT changed to OGT. Recs: - continue IV Ganciclovir D32 at 1.5 mg/kg 3 times a week - renally adjusted, continue till CMV PCR is <200 - f/u serum CMV DNA PCR from 10/17. repeat CMV DNA PCR sent today. Called and spoke to micro lab ([facility]) to help track down results from 10/17/2018 - continue atovaquone, continue fluconazole 100 mg daily PO as prophylaxis - continue HAART: given renal function issues, discontinued Tenofovir on 10/21/2018 and switched to Darunavir + Norvir. Continue Emtricitabine and dol utegravir. - f/u HIV RNA PCR and CD4 count along with HIV Genotype to hopefully also look at any archived Yana - monitor daily CBC, BMP - given diarrhea, will check stool for WBC and Giardia/Cryptosporidium. Diarrhea could also be related to AIDS enteropathy. Maurizio Lopez MD [facility] C: [phone] O: [phone] F: [phone] Subjective Date of service: 10/25/18 Principal diagnosis: Severe sepsis; Ac hypoxemic Resp failure; [place]. Pneumonia; Ac encephalopathy Interval history: Now s/p trach and PEG by surgery. Doing well. Loose stools + Objective - Exam Narrative Exam: Physical Exam: Constitutional: awake and following commands intermittently Head, Ears, Nose: Normocephalic, atraumatic. Eyes: Conjunctivae/corneas clear. No icterus. No ptosis. Neck: Supple, no meningeal signs. Trach + Oral: no thrush Cardiovascular: S1, S2 normal. Respiratory: Good air entry, clear to auscultation bilaterally GI: Soft, bowel sounds normal. No peritoneal signs. PEG +. Rectal tube + Musculoskeletal: No pedal edema, no cyanosis. Skin: No rash or abscess Hem/Lymphatic: No palpable cervical or supraclavicular nodes. No lymphangitis Psych: calm, without agitation Neurological: awake, following basic commands intermittently - Constitutional Vitals: Vital Signs Temp Pulse Resp BP Pulse Ox 99.4 F 87 21 132/76 100 10/25/18 03:25 10/25/18 14:18 10/25/18 14:18 10/25/18 14:07 10/25/18 13:13 Temperature -Last 24 Hours Temperature 99.4 F Temperature 100.4 F Temperature 99.4 F Temperature 98.7 F Temperature 98.7 F - Labs CBC & Chem 7: 10/24/18 04:50 10/25/18 05:20 Labs: Abnormal lab results 10/24/18 10/25/18 10/25/18 Range/Units 11:15 05:20 09:25 Potassium 3.0 L (3.6-5.0) mmol/L Carbon Dioxide 20 L (22-30) mmol/L BUN 69 H (9-20) mg/dL Creatinine 5.4 H (0.8-1.5) mg/dL Calcium 7.9 L (8.4-10.2) mg/dL Crossmatch See Detail See Detail - Imaging and cardiology Chest x-ray: report reviewed, image reviewed (trach +. no infiltrate seen)
--- NOTE | 2018-10-25 15:51 | Progress Note ---
Assessment and Plan Assessment and plan: : Patient is 33 yo initially presented with diarrhea, found to have pneumonia, sepsis, HIV/AIDS(new diagnosis) with CD4 count of 4. He was started on abx for PJP. His mental status has worsened with confusion, lethargy. LP done . He was diagnosed with neurosyphilis. Started on Penicillin. Closest family is sister in [place], and dr. Baltazar spoke to her several times about diagnosis but did not tell her about HIV/AIDS because of patient confidentiality. The patient decompensated on 09/20/18 with acute hypoxemic respiratory failure and worsening toxic metabolic encephalopathy requiring transfer to ICU and intubation. He now remains on mechanical ventilation. The patient was also noted to develop SVT requiring amiodarone drip as well as heparin drip. Severe Sepsis. Etiology secondary to bacterial pneumonia +/- gastroenteritis with newly diagnosed with HIV. Fevers have re-emerged. Repeat blood cx per ID. ARF - Patient's creatinine level is trending up - nephrology is following and he started on hemodialysis today Acute hypoxemic respiratory failure - Patient has pneumonia and altered mental status - Patient is intubated and on mechanical ventilation - Pulmonary is following Disseminated CMV viremia: -Treated with IV ganciclovir and currently he is on prophylaxis Toxic metabolic encephalopathy. 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 Of note, MRI did not show ventriculitis. Neurology evaluation. - Patient showed improvement follows simple commands A. fib with RVR. Converted to NSR. cont Amiodarone and metoprolol. Rate controlled Neurosyphilis: CSF VDRL positive, patient finished a course of IV penicillin 21 days Diarrhea. Resolved, etiology likely secondary to Giardia. Giardia antigen positive in stool. Completed a course of Flagyl. Oral candidiasis. Fluconazole HIV/AIDS. New Diagnosis. Started on HAART on 09/30, Tenofovir, Emtricitabine + Dolutegravir watch closely for IRIS continue atovaquone and azithromycin prophylaxis Neutropenia. 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 Also probably worse from ganciclovir. r/o disseminated MAC, thus far cultures negative. WBC count this morning was 0.5, progressively declining. Hematology saw him and continue granix. Prognosis poor. Discussed the management plan was a sister was in the room during my examination. Patient does plate and take this morning. Pending LTAC placement. History Interval history: Patient was seen and evaluated this morning, patient had bedside PEG and trach this morning. Patient follows simple commands, squeezes my fingers. Hospitalist Physical - Physical exam Narrative exam: Patient is on trach and PEG The patient is obese. Vital signs as documented. Head exam is unremarkable. No scleral icterus . Neck is without jugular venous distension, thyromegaly, or carotid bruits. Lungs are clear to auscultation. Cardiac exam reveals regular rate and Rhythm. First and second heart sounds normal. No murmurs, rubs or gallops. Abdominal exam reveals normal bowel sounds, no masses, no organomegaly and no aortic enlargement. Extremities are nonedematous and both femoral and pedal pulses are normal. 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 Follow simple commands. - Constitutional Vitals: Temp Pulse Resp BP Pulse Ox 99.4 F 89 21 132/76 99 10/25/18 03:25 10/25/18 14:30 10/25/18 14:30 10/25/18 14:07 10/25/18 14:32 General appearance: Present: mild distress, other (orally intubated, minimal response--right side spontaneous movement) Results - Labs CBC & Chem 7: 10/24/18 04:50 10/25/18 05:20 Labs: Laboratory Last Values WBC 0.9 K/mm3 (4.5-11.0) L* 10/24/18 04:50 RBC 2.24 M/mm3 (3.65-5.03) L 10/24/18 04:50 Hgb 6.8 gm/dl (11.8-15.2) L 10/24/18 04:50 Hct 20.7 % (35.5-45.6) L 10/24/18 04:50 MCV 92 fl (84-94) 10/24/18 04:50 MCH 31 pg (28-32) 10/24/18 04:50 MCHC 33 % (32-34) 10/24/18 04:50 RDW 20.1 % (13.2-15.2) H 10/24/18 04:50 Plt Count 147 K/mm3 (140-440) 10/24/18 04:50 [place] % (Auto) Needle Loom Tender 09/29/18 05:00 Eos % (Auto) Needle Loom Tender 10/13/18 04:05 Baso % (Auto) Needle Loom Tender 10/13/18 04:05 Add Manual Diff Complete 10/24/18 04:50 Total Counted 50 10/24/18 04:50 Seg Neutrophils % Needle Loom Tender 10/16/18 07:50 Seg Neuts % (Manual) 56.0 % (40.0-70.0) 10/24/18 04:50 Band Neutrophils % 0 % 10/24/18 04:50 Lymphocytes % (Manual) 28.0 % (13.4-35.0) 10/24/18 04:50 Reactive Lymphs % (Man) 0 % 10/24/18 04:50 Monocytes % (Manual) 16.0 % (0.0-7.3) H 10/24/18 04:50 Eosinophils % (Manual) 0 % (0.0-4.3) 10/24/18 04:50 Basophils % (Manual) 0 % (0.0-1.8) 10/24/18 04:50 Metamyelocytes % 0 % 10/24/18 04:50 Myelocytes % 0 % 10/24/18 04:50 Promyelocytes % 0 % 10/24/18 04:50 Blast Cells % 0 % 10/24/18 04:50 Nucleated RBC % Not Reportable 10/24/18 04:50 Seg Neutrophils # Man 0.5 K/mm3 (1.8-7.7) L 10/24/18 04:50 Band Neutrophils # 0.0 K/mm3 10/24/18 04:50 Abs Lymphs (Manual) 309 cells/uL (850-3900) L 09/13/18 12:29 Lymphocytes # (Manual) 0.3 K/mm3 (1.2-5.4) L 10/24/18 04:50 Abs React Lymphs (Man) 0.0 K/mm3 10/24/18 04:50 Monocytes # (Manual) 0.1 K/mm3 (0.0-0.8) 10/24/18 04:50 Eosinophils # (Manual) 0.0 K/mm3 (0.0-0.4) 10/24/18 04:50 Basophils # (Manual) 0.0 K/mm3 (0.0-0.1) 10/24/18 04:50 Metamyelocytes # 0.0 K/mm3 10/24/18 04:50 Myelocytes # 0.0 K/mm3 10/24/18 04:50 Promyelocytes # 0.0 K/mm3 10/24/18 04:50 Blast Cells # 0.0 K/mm3 10/24/18 04:50 WBC Morphology Not Reportable 10/24/18 04:50 Hypersegmented Neuts Not Reportable 10/24/18 04:50 Hyposegmented Neuts Not Reportable 10/24/18 04:50 Hypogranular Neuts Not Reportable 10/24/18 04:50 Smudge Cells Not Reportable 10/24/18 04:50 Toxic Granulation Not Reportable 10/24/18 04:50 Toxic Vacuolation Not Reportable 10/24/18 04:50 Dohle Bodies Not Reportable 10/24/18 04:50 Pelger-Huet Anomaly Not Reportable 10/24/18 04:50 Giovanna Rods Not Reportable 10/24/18 04:50 Platelet Estimate Appears normal 10/24/18 04:50 Clumped Platelets Not Reportable 10/24/18 04:50 Plt Clumps, EDTA Not Reportable 10/24/18 04:50 Large Platelets Not Reportable 10/24/18 04:50 Giant Platelets Not Reportable 10/24/18 04:50 Platelet Satelliting Not Reportable 10/24/18 04:50 Plt Morphology Comment Not Reportable 10/24/18 04:50 RBC Morphology Not Reportable 10/24/18 04:50 Dimorphic RBCs Not Reportable 10/24/18 04:50 Polychromasia Not Reportable 10/24/18 04:50 Hypochromasia 1+ 10/24/18 04:50 Poikilocytosis Not Reportable 10/24/18 04:50 Anisocytosis 1+ 10/24/18 04:50 Microcytosis Not Reportable 10/24/18 04:50 Macrocytosis Not Reportable 10/24/18 04:50 Spherocytes Not Reportable 10/24/18 04:50 Pappenheimer Bodies Not Reportable 10/24/18 04:50 Sickle Cells Not Reportable 10/24/18 04:50 Target Cells Not Reportable 10/24/18 04:50 Tear Drop Cells Not Reportable 10/24/18 04:50 Ovalocytes 1+ 10/24/18 04:50 Stomatocytes 1+ 09/29/18 05:00 Helmet Cells Not Reportable 10/24/18 04:50 [place] Bodies Not Reportable 10/24/18 04:50 [place] Rings Not Reportable 10/24/18 04:50 [place] Cells Not Reportable 10/24/18 04:50 Bite Cells Not Reportable 10/24/18 04:50 Crenated Cell Not Reportable 10/24/18 04:50 Elliptocytes Not Reportable 10/24/18 04:50 Acanthocytes (Spur) Not Reportable 10/24/18 04:50 Rouleaux Not Reportable 10/24/18 04:50 Hemoglobin C Crystals Not Reportable 10/24/18 04:50 Schistocytes Not Reportable 10/24/18 04:50 Malaria parasites Not Reportable 10/24/18 04:50 Kieran Bodies Not Reportable 10/24/18 04:50 Hem Pathologist Commnt No 10/24/18 04:50 PT 16.0 Sec. (12.2-14.9) H 10/10/18 08:09 INR 1.20 (0.87-1.13) H 10/10/18 08:09 APTT 40.9 Sec. (24.2-36.6) H 09/21/18 15:00 Heparin Anti-Xa Level 0.35 U.I./ml (0.3-0.7) 10/05/18 10:19 Heparin Anti-Xa, Unfract Negative (Negative) 10/20/18 12:50 POC ABG pH 7.399 (7.35-7.45) 10/20/18 12:17 POC ABG pCO2 33.3 (35-45) L 10/20/18 12:17 POC ABG pO2 107 (80-105) H 10/20/18 12:17 POC ABG HCO3 20.6 10/20/18 12:17 POC ABG Total CO2 22 10/20/18 12:17 POC ABG O2 Sat 98 10/20/18 12:17 POC ABG Base Excess -4 10/20/18 12:17 FiO2 25 % 10/20/18 12:17 Sodium 142 mmol/L (137-145) 10/25/18 05:20 Potassium 3.0 mmol/L (3.6-5.0) L 10/25/18 05:20 Chloride 103.4 mmol/L (98-107) 10/25/18 05:20 Carbon Dioxide 20 mmol/L (22-30) L 10/25/18 05:20 Anion Gap 22 mmol/L 10/25/18 05:20 BUN 69 mg/dL (9-20) H 10/25/18 05:20 Creatinine 5.4 mg/dL (0.8-1.5) H 10/25/18 05:20 Estimated GFR 15 ml/min 10/25/18 05:20 BUN/Creatinine Ratio 13 % 10/25/18 05:20 Glucose 89 mg/dL (75-100) 10/25/18 05:20 POC Glucose 101 (70-105) 10/22/18 12:01 Lactic Acid 0.90 mmol/L (0.7-2.0) 09/11/18 20:17 Calcium 7.9 mg/dL (8.4-10.2) L 10/25/18 05:20 Phosphorus 8.50 mg/dL (2.5-4.5) H 10/14/18 09:40 Magnesium 1.80 mg/dL (1.7-2.3) 10/25/18 05:20 Iron 35 ug/dL (49-181) L 10/06/18 09:40 TIBC 157 mcg/dL (250-450) L 10/06/18 09:40 Ferritin 1126.0 ng/mL (13.0-400.0) H 10/06/18 09:40 Total Bilirubin 0.30 mg/dL (0.1-1.2) 10/19/18 06:15 Direct Bilirubin < 0.2 mg/dL (0-0.2) 09/13/18 07:31 AST 54 units/L (5-40) H 10/19/18 06:15 ALT 36 units/L (7-56) 10/19/18 06:15 Alkaline Phosphatase 57 units/L (35-129) 10/19/18 06:15 Ammonia 27.0 umol/L (25-60) 10/03/18 13:23 Total Creatine Kinase 113 units/L (55-170) 10/11/18 05:20 CK-MB (CK-2) 2.6 ng/mL (0.0-4.0) 10/11/18 05:20 CK-MB (CK-2) Rel Index 0.5 (0-4) 09/21/18 04:25 NT-Pro-B Natriuret Pep 145.9 pg/mL (0-450) 09/18/18 16:07 Total Protein 5.7 g/dL (6.3-8.2) L 10/19/18 06:15 Albumin 2.5 g/dL (3.9-5) L 10/19/18 06:15 Albumin/Globulin Ratio 0.8 % 10/19/18 06:15 Vitamin B12 934.5 pg/mL (211-911) H 09/16/18 11:41 Folate 6.71 ng/mL (7.3-26.0) L 10/06/18 09:40 TSH 5.190 mlU/mL (0.270-4.200) H 09/18/18 12:46 Free T4 0.75 ng/dL (0.76-1.46) L 09/18/18 12:46 Urine Color Yellow (Yellow) 10/11/18 05:40 Urine Turbidity Slightly-cloudy (Clear) 10/11/18 05:40 Urine pH 5.0 (5.0-7.0) 10/11/18 05:40 Ur Specific [place] 1.012 (1.003-1.030) 10/11/18 05:40 Urine Protein 30 mg/dl mg/dL (Negative) 10/11/18 05:40 Urine Glucose (UA) Neg mg/dL (Negative) 10/11/18 05:40 Urine Ketones Neg mg/dL (Negative) 10/11/18 05:40 Urine Blood Mod (Negative) 10/11/18 05:40 Urine Nitrite Neg (Negative) 10/11/18 05:40 Urine Bilirubin Neg (Negative) 10/11/18 05:40 Urine Urobilinogen < 2.0 mg/dL (<2.0) 10/11/18 05:40 Ur Leukocyte Esterase Neg (Negative) 10/11/18 05:40 Urine WBC (Auto) 8.0 /HPF (0.0-6.0) H 10/11/18 05:40 Urine RBC (Auto) 45.0 /HPF (0.0-6.0) 10/11/18 05:40 U Epithel Cells (Auto) 2.0 /HPF (0-13.0) 10/11/18 05:40 Urine Bacteria (Auto) 1+ /HPF (Negative) 10/11/18 05:40 Urine Mucus Few /HPF 10/11/18 05:40 Urine Creatinine 57.5 mg/dL (0.1-20.0) H 10/11/18 05:40 Protein/Creatinin Ratio 0.77 10/11/18 05:40 Urine Sodium 70 mmol/L 10/11/18 05:40 Urine Chloride 35.1 mmolL (110-250) L 10/11/18 05:40 Urine Total Protein 44 mg/dL (5-11.8) H 10/11/18 05:40 CSF Appearance Bloody 10/10/18 Unknown CSF Color Red 10/10/18 Unknown CSF WBC 10 /mm3 (1-10) 10/10/18 Unknown CSF RBC 33216 /mm3 (0-0) 10/10/18 Unknown CSF Seg Neutrophils 14.0 % (0-6) 10/10/18 Unknown CSF Lymphocytes % 44.0 % (40-80) 10/10/18 Unknown CSF Reactive Lymphs 0 % 10/10/18 Unknown CSF Monocytes % 38.0 % (15-45) 10/10/18 Unknown CSF Eosinophils % 4.0 % 10/10/18 Unknown CSF Basophils 0 % 10/10/18 Unknown CSF Pathologist Review C 10/10/18 Unknown CSF Glucose 47 mg/dL 10/10/18 Unknown CSF Total Protein 84 mg/dL 10/10/18 Unknown CSF VDRL Reactive 1:2 (Nonreactive) H 10/10/18 Unknown Vancomycin Trough 14.3 ug/mL (5.0-20.0) 09/25/18 14:45 Random Vancomycin 10.7 ug/mL (0-40.0) 10/12/18 03:30 Urine Opiates Screen Presumptive negative 09/17/18 15:52 Urine Methadone Screen Presumptive negative 09/17/18 15:52 Ur Barbiturates Screen Presumptive negative 09/17/18 15:52 Ur Phencyclidine Scrn Presumptive negative 09/17/18 15:52 Ur Amphetamines Screen Presumptive negative 09/17/18 15:52 U Benzodiazepines Scrn Presumptive negative 09/17/18 15:52 Urine Cocaine Screen Presumptive negative 09/17/18 15:52 U Marijuana (THC) Screen Presumptive negative 09/17/18 15:52 Drugs of Abuse Note Disclamer 09/17/18 15:52 Proteinase 3 (PR3) Ab <1.0 AI (<1.0) 10/12/18 09:46 Myeloperoxidase Ab <1.0 AI (<1.0) 10/12/18 09:46 Heparin-induced Plt Ab Negative (Negative) 10/20/18 12:50 UF Heparin High Dose 0 % Release 10/20/18 12:50 MAGIDEL UFH Low Dose 0.1 0 % Release 10/20/18 12:50 MAGDIEL UFH Low Dose 0.5 0 % Release 10/20/18 12:50 Complement C3 184 mg/dL (82-185) 10/12/18 09:46 Complement C4 45 mg/dL (15-53) 10/12/18 09:46 Lymph Enumerat CD4/CD8 0.01 (0.86-5.00) L 09/13/18 12:29 % CD3 Cells 71 % (57-85) 09/13/18 12:29 Absolute CD3 Count 220 cells/uL (840-3060) L 09/13/18 12:29 % CD4 Cells 1 % (30-61) L 09/13/18 12:29 Absolute CD4 Count 4 cells/uL (490-1740) L 09/13/18 12:29 % CD8 Cells 70 % (12-42) H 09/13/18 12:29 Absolute CD8 Count 216 cells/uL (180-1170) 09/13/18 12:29 % CD19 Cells 17 % (6-29) 09/13/18 12:29 Absolute CD19 Count 54 cells/uL (110-660) L 09/13/18 12:29 RPR Titer 1:16 09/13/18 12:29 RPR Reactive (Nonreactive) 09/13/18 12:29 T.pallidum Ab (FTA-ABS) Reactive (Nonreactive) H 09/14/18 16:34 C. difficile Toxin A&B Negative (Negative) 09/12/18 05:30 CMV DNA PCR log electron microscopist/mL See scanned results 10/03/18 06:12 Hepatitis A IgM Ab Non-reactive (NonReactive) 09/13/18 12:29 Hep Bs Antigen Non-reactive (Negative) 09/13/18 12:29 Hep B Core IgM Ab Non-reactive (NonReactive) 09/13/18 12:29 Hepatitis C Antibody Non-reactive (NonReactive) 09/13/18 12:29 HIV-1 Antibody See scanned result 09/11/18 19:14 HIV-1 RNA PCR copies/ml 33900 Copies/mL H 09/13/18 12:29 HIV-1 RNA (PCR) log 4.71 Log cps/mL H 09/13/18 12:29 HIV-2 Ab (Immunoblot) See scanned result 09/11/18 19:14 HIV 1&2 Antibody Rapid Reactive (Non React) 09/11/18 19:14 HIV P24 Antigen Non react (Non React) 09/11/18 19:14 Influenza A (Rapid) Negative (Negative) 09/13/18 16:05 Influenza A (RT-PCR) Negative (Negative) 09/13/18 16:05 Influenza B (Rapid) Negative (Negative) 09/13/18 16:05 Influenza B (RT-PCR) Negative (Negative) 09/13/18 16:05 Toxoplasma IgG Ab <7.20 IU/mL (<7.20) 09/16/18 12:09 Miscellaneous Test Flexitest 1 H 10/10/18 Unknown Blood Type B NEGATIVE 10/25/18 09:25 Antibody Screen Negative 10/25/18 09:25 Crossmatch See Detail 10/25/18 09:25 Nutrition/Malnutrition Assess - Dietary Evaluation Nutrition/Malnutrition Findings: Nutrition Notes Start: 09/12/18 17:45 Freq: Status: Active Protocol: Document 10/25/18 14:01 SANDY (Rec: 10/25/18 14:02 SANDY [email or web address]) Nutrition Notes Initial or Follow up Brief Note Subjective/Other Information Trach and PEG placed today. RN notified of TF formula change. Nutrition Intervention Follow-Up By: 10/26/18 Additional Comments F/U: TF formula change/rate
[2018-10-25 20:49] LABS: Hematocrit 24.2 % (35.5-45.6); Mean Corpuscular HGB Conc 33 % (32-34); Mean Corpuscular Volume 92 fl (84-94); Platelet Count 171 K/mm3 (140-440); Red Blood Count 2.64 M/mm3 (3.65-5.03); Red Cell Distribution Width 19.4 % (13.2-15.2)
[2018-10-26] MEDS: SYNTHROID PO SCH (06:31)
[2018-10-26] MEDS: ROBINUL PO SCH ×2 (06:31→15:30)
--- NOTE | 2018-10-26 07:38 | Hem/Onc Progress Note ---
Assessment and Plan 1. Leukopenia. ANC is 0.5. Neutropenic precaution is practical. 2. Anemia. We will investigate. 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 HAART has been started. At this time, there is no fever. 3. Human immunodeficiency virus, on HAART. 4. 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 5. Intubated. 6. On antibiotics for pneumonia. 7. History of ____ that is improved. 8. Looks at you, but does not communicate. 9. History of oral candidiasis. 10. Mention of giardiasis. 11. Encephalopathy. 12. RVR with atrial fibrillation. I will follow the patient during inpatient stay. At this time, his cytopenia is likely secondary to the HIV or the CMV. I will discuss with ID team to see if G-CSF support is an option. 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 - d/w RN reg same - I had spoken to hospitalist - dr reyna - yesterday about this 10/11 - s/p GCSF - not much change in WBC or overall performance - as per RN - plan for trach and PEG cement handler high - nephrology 10/12 - trach - peg not done - as family deciding the GCSF - did not change the WBC 10/13 - wbc 1 - opens eye - non communicative 10/14 - pt moves rt arm - eyes open still on vent - as per info - family is thinking about PEG - trach - they have not consented granix trial for low wbc 10/15 - gcsf trial - poor prognosis due to performance status 10/16 - dialysis cath wbc low - gCSF 10/17 - wbc still low - poor prognosis - ct folic acid for anemia 10/18 - not much improvement - last cbc on 10/16 10/19 - wbc low - moving left toes 10/20 - low counts may be HIV or meds related 10/21 - as per rN - next week trach/? PEG planned moves rt hand and left toes 10/22 - as per RN - PEG planned next week pt awake - moves left toes - restrain 10/23 - d/w dr Young - repeat CBC now to see plt moves rt arm and left leg on vent - plt better - anemia - low wbc will look into transfusion support if falls more iv iron 10/25 - prbc - gsf intermittent - did not change the wbc sx procedure planned 10/26 - pt had trach and PEG - moves left toes - d/w RN - Patient Problems (1) Neutropenia Current Visit: Yes Status: Acute Subjective Date of service: 10/26/18 Principal diagnosis: low wbc Interval history: s/p PEG and trach Objective - Exam Narrative Exam: trach - PEG - Constitutional Vitals: Last Vital Signs Temp 100.0 F H 10/26/18 04:00 Pulse 84 10/26/18 06:00 Resp 24 10/26/18 06:00 BP 130/71 10/26/18 06:00 Pulse Ox 100 10/26/18 06:00 General appearance: no acute distress Performance status: 4-completely disabled - EENT ENT: other (trach) Lymph node exam: negative cervical - Respiratory Respiratory effort: Positive: normal Respiratory: bilateral: CTA - Cardiovascular Heart Sounds: Present: S1 & S2 Extremity abnormal: edema - Gastrointestinal General gastrointestinal: Present: soft, other (peg+) Rectal Exam: deferred - Genitourinary Male genitourinary: Present: deferred - Integumentary Integumentary: warm - Musculoskeletal Musculoskeletal: other (moves left toes) - Labs Lab Results: Laboratory Results - last 24 hr 10/24/18 10/25/18 10/25/18 11:15 09:25 19:35 WBC 0.9 L* RBC 2.64 L Hgb 8.0 L Hct 24.2 L MCV 92 MCH 30 MCHC 33 RDW 19.4 H Plt Count 171 Blood Type B NEGATIVE Antibody Screen Negative Crossmatch See Detail See Detail Medications & Allergies - Medications Allergies/Adverse Reactions: Allergies No Known Allergies Allergy (Unverified 09/11/18 17:50) Home Medications: Home Medications Medication Instructions Recorded Confirmed Last Taken Type No Known Home Medications [No 10/02/18 10/02/18 Unknown History Reported Home Medications] Active Medications: Generic Name Dose Route Start Last Admin Trade Name Freq PRN Reason Stop Dose Admin Acetaminophen 650 mg 09/11/18 19:30 10/09/18 16:32 Tylenol PO 650 mg Q4H PRN Administration Pain MILD(1-3)/Fever >100.5/RIVERA Acetaminophen 650 mg 09/21/18 07:39 10/07/18 21:15 Tylenol [place] 650 mg Q4H PRN Administration Fever >101 Albuterol 2.5 mg 09/20/18 20:00 10/25/18 19:06 Proventil IH 2.5 mg Q6HRT GIA Administration Amiodarone HCl 200 mg 10/22/18 10:00 10/25/18 14:06 Cordarone PO 200 mg DAILY GIA Administration Lipase/Protease/Amylase 1 each 09/30/18 12:01 Pancrealen Gibbs 10,500 Unit FEEDTUBE PRN PRN For Clogged Feeding Tube Atovaquone 750 mg 09/21/18 10:00 10/25/18 21:34 Mepron PO 750 mg BID GIA Administration Darunavir 800 mg 10/21/18 12:00 10/25/18 14:06 Prezista PO 800 mg QDAY GIA Administration Emtricitabine 200 mg 10/13/18 10:00 10/25/18 14:13 Emtriva PO 200 mg Q96H GIA Administration Enoxaparin Sodium 30 mg 10/26/18 10:00 Lovenox SUB-Q QDAY GIA Famotidine 20 mg 10/10/18 10:00 10/25/18 14:05 Pepcid PO 20 mg DAILY GIA Administration Fluconazole 100 mg 10/25/18 10:00 10/25/18 14:08 Diflucan PO 100 mg QDAY GIA Administration Folic Acid 1 mg 10/07/18 10:00 10/25/18 14:09 Folvite PO 1 mg QDAY GIA Administration Glycopyrrolate 2 mg 10/24/18 14:00 10/26/18 06:31 Robinul PO 2 mg Q8HR GIA Administration Hydrophilic Ointment 1 applic 09/21/18 01:46 09/22/18 03:46 Vaseline Lip Therapy TP 1 applic Q2HR PRN Administration Dry Lips Sodium Chloride 100 mls @ 999 mls/hr 10/17/18 10:39 Nacl 0.9% IV CHERYL PRN Hypotension Sodium Chloride 1,000 mls @ 50 mls/hr 10/25/18 08:00 Nacl 0.9% 1000 Ml IV DIRECT GIA Levetiracetam 750 mg 10/12/18 22:00 10/25/18 21:33 Keppra PO 750 mg BID GIA Administration Levothyroxine Sodium 25 mcg 09/19/18 06:00 10/26/18 06:31 Synthroid PO 25 mcg DAILY@0600 GIA Administration Metoprolol Tartrate 12.5 mg 10/10/18 13:00 10/25/18 21:34 Lopressor PO 12.5 mg BID GIA Administration Morphine Sulfate 2 mg 10/20/18 18:37 Morphine IV Q4H PRN Pain, Moderate (4-6) Multi-Ingred Cream/Lotion/Oil/Oint 1 applic 09/21/18 01:46 Artificial Tears Ophth Oint OU Q4HR PRN Dry Eye(s) Ondansetron HCl 4 mg 09/11/18 19:30 Zofran IV Q8H PRN Nausea And Vomiting Ritonavir 100 mg 10/21/18 12:00 10/25/18 14:09 Norvir PO 100 mg QDAY GIA Administration Scopolamine 1 each 09/18/18 18:00 10/24/18 18:01 Transderm-Scop TD 1 each Q3D GIA Administration Simple Syrup 15 ml 10/15/18 10:45 Simple Syrup FEEDTUBE PRN PRN Hypoglycemia Simple Syrup 30 ml 10/15/18 10:45 Simple Syrup FEEDTUBE PRN PRN Hypoglycemia Sodium Bicarbonate 325 mg 10/15/18 10:45 Sodium Bicarbonate FEEDTUBE PRN PRN For Clogged Feeding Tube Sodium Chloride 10 ml 09/11/18 22:00 10/25/18 21:34 Sodium Chloride Flush Syringe 10 Ml IV 10 ml BID GIA Administration Sodium Chloride 10 ml 09/11/18 19:30 10/24/18 16:58 Sodium Chloride Flush Syringe 10 Ml IV 10 ml PRN PRN Administration LINE FLUSH
[2018-10-26] MEDS: PROVENTIL IH SCH ×3 (07:49→13:04)
--- NOTE | 2018-10-26 07:59 | Progress Note ---
Assessment and Plan - Patient Problems (1) Acute respiratory failure Current Visit: Yes Status: Acute Qualifiers: Respiratory failure complication: hypoxia Qualified Code(s): J96.01 - Acute respiratory failure with hypoxia Plan to address problem: Pt stable. s/p trach/PEG - 10/25/18 - POD#1. Appears to be doing well. No signs of any complications. Will sign-off. Please call with questions. Subjective Date of service: 10/26/18 Patient Reports: Positive: other (no issues o/n) Objective Vital Signs - 12hr 10/25/18 10/25/18 10/25/18 20:00 21:00 21:34 Temperature 99.0 F Pulse Rate 96 H 94 H 92 H Pulse Rate [ Bases] Respiratory 22 14 Rate Respiratory Rate [Bases] Blood Pressure 129/80 121/69 134/74 O2 Sat by Pulse 100 100 Oximetry O2 Sat by Pulse Oximetry [ Assessment] 10/25/18 10/25/18 10/25/18 22:00 22:32 23:00 Temperature Pulse Rate 90 87 Pulse Rate [ Bases] Respiratory 18 18 Rate Respiratory Rate [Bases] Blood Pressure 129/78 148/82 O2 Sat by Pulse 100 100 Oximetry O2 Sat by Pulse 100 Oximetry [ Assessment] 10/25/18 10/25/18 10/26/18 23:01 23:06 00:00 Temperature 99.4 F Pulse Rate 86 87 86 Pulse Rate [ Bases] Respiratory 18 25 H Rate Respiratory Rate [Bases] Blood Pressure 148/82 139/78 126/84 O2 Sat by Pulse 100 100 100 Oximetry O2 Sat by Pulse Oximetry [ Assessment] 10/26/18 10/26/18 10/26/18 01:00 02:00 03:00 Temperature Pulse Rate 84 84 86 Pulse Rate [ 84 Bases] Respiratory 18 21 22 Rate Respiratory 22 Rate [Bases] Blood Pressure 136/71 127/67 132/75 O2 Sat by Pulse 100 100 100 Oximetry O2 Sat by Pulse Oximetry [ Assessment] 10/26/18 10/26/18 10/26/18 04:00 05:00 06:00 Temperature 100.0 F H Pulse Rate 85 84 84 Pulse Rate [ Bases] Respiratory 18 21 24 Rate Respiratory Rate [Bases] Blood Pressure 136/75 117/65 130/71 O2 Sat by Pulse 100 100 100 Oximetry O2 Sat by Pulse 100 Oximetry [ Assessment] - General physical appearance no distress, no pain, other (unresponsive) - Neck other (trach in place. No excess tension. No drainage or bleeding.) - Respiratory normal respiratory effort, other (equal breath sounds) - Abdomen soft, bowel sounds hypoactive, not distended - Integumentary no rash, no growths, no abnormal pigmentation - Labs 10/25/18 19:35 10/25/18 05:20
--- NOTE | 2018-10-26 09:55 | Discharge Summary ---
Providers - Providers Date of Admission: 09/11/18 19:30 Attending physician: WINSTON POOL MD 09/12/18 03:38 Consult to Wound/ET Nurse [CONS] Routine Reason For Exam: wound eval 09/13/18 09:38 Consult to Physician [CONS] Routine Comment: Consulting Provider: JESSICA SWEET Physician Instructions: Reason For Exam: Elevated LFT,abd pain,abnormal CT Abd 09/13/18 09:59 Consult to Physician [CONS] Routine Comment: Consulting Provider: CLIFF TSANG Physician Instructions: Reason For Exam: HIV new diagnosis 09/13/18 12:50 Consult to Mental Health [CONS] Routine Reason For Exam: Depression Place consult to:: Psych Notified:: Phone number called:: [phone] Was contact made?: Yes If yes, spoke with:: shalom Time called:: 09:30 09/13/18 14:53 Consult to Mental Health [CONS] Urgent Reason For Exam: Depression Place consult to:: john monet Notified:: Kaila If yes, spoke with:: Kaila Time called:: 13:00 09/16/18 09:19 Consult to Dietitian/Nutrition [CONS] Routine Physician Instructions: Reason For Exam: Reason for Consult: Poor oral intake 09/16/18 11:52 Consult to Physician [CONS] Routine Comment: Consulting Provider: SELENE CARPIO Physician Instructions: Reason For Exam: Altered mental status, HIV 09/17/18 09:40 Consult to Physician [CONS] Routine Comment: Consulting Provider: CLOVIS BRANCH Physician Instructions: Reason For Exam: acute resp failure 09/18/18 15:04 Speech Therapy Evaluation and Treat [CONS] Routine Reason For Exam: swallow eval 09/19/18 11:32 Consult to Dietitian/Nutrition [CONS] Routine Physician Instructions: Reason For Exam: Reason for Consult: Write/Manage Tube Feeding 09/21/18 01:46 Consult to Dietitian/Nutrition [CONS] Routine Physician Instructions: Reason For Exam: Reason for Consult: Evaluate nutritional intake 09/21/18 04:45 PICC Line Insertion [Consult to PICC Line RN] [CONS] 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 Type Line:: PICC 09/21/18 11:46 Consult to Physician [CONS] Routine Comment: Consulting Provider: AD HEAD Physician Instructions: Acute rneal failure with hyperkalemia Reason For Exam: Acute renal failure 10/03/18 12:38 Consult to Physician [CONS] Routine Comment: Consulting Provider: CHUY RODRIGUEZ Physician Instructions: Reason For Exam: Tracheostomy +/- PEG placement 10/05/18 12:32 Consult to Physician [CONS] Routine Comment: Consulting Provider: DIMPLE HARRIS Physician Instructions: Reason For Exam: encephalopathy 10/05/18 12:49 Consult to Physician [CONS] Routine Comment: Consulting Provider: BRYN ALVARES Physician Instructions: Reason For Exam: pancytopenia 10/09/18 16:39 Consult to Physician [CONS] Routine Comment: Consulting Provider: BHARTI BRYANT Physician Instructions: Reason For Exam: ARF 10/15/18 10:46 Consult to Dietitian/Nutrition [CONS] Routine Physician Instructions: Assess nutrtn needs, initiate, modify, manage TF Reason For Exam: Reason for Consult: Write/Manage Tube Feeding Reason for Consult: Write/Manage Tube Feeding 10/15/18 12:27 Consult to Interventional Radiology [CONS] Routine Consulting Provider: LUIS GOLD Reason For Exam: MAL, vascath for HD Place consult to:: Mitul Notified:: Yes per Dr. Gupta Was contact made?: Yes If yes, spoke with:: Yes 10/17/18 09:52 Physical Therapy Evaluation and Treat [CONS] Routine Comment: Reason For Exam: Debility 10/17/18 09:53 Occupational Therapy Evaluate and Treat [CONS] Routine Comment: Reason For Exam: Debility Primary care physician: ROSSANA MACHUCA Hospitalization Reason for admission: HIV-AIDS, altered mental status, neurosyphilis, CMV meningitis, neutropenia Condition: Poor Pertinent studies: CXR MRI head doppler Procedures: LP PEG and trach Intubation Hospital course: Patient is 33 yo initially presented with diarrhea, found to have pneumonia, sepsis, HIV/AIDS(new diagnosis) with CD4 count of 4. He was treated for PJP. His mental status has worsened with confusion, lethargy. LP done . He was diagnosed with neurosyphilis. Started on Penicillin. Closest family is sister in [place], and spoke with her several times about diagnosis. The patient decompensated on 09/20/18 with acute hypoxemic respiratory failure and worsening toxic metabolic encephalopathy requiring transfer to ICU. He was intubated and on mechanical ventilation in all his stay. The patient was also noted to develop SVT requiring amiodarone and cardiology evaluated and decided not to continue amiodarone at the time of discharge given he was in NSR in all his stay and the interaction of amiodarone with his HIV medications. ARF; patient was followed the patient and patient was placed on HD. Acute hypoxemic respiratory failure; patient was intubated and on MV in all his stay. Finally his sister agreed with PEG and trach. 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 Of note, MRI did not show ventriculitis. Neurology evaluated and recommend to contnue current treaatment. Patient showed improvement follows simple commands at the time of discharge. A. fib with RVR. Converted to NSR. was on Amiodarone and metoprolol and cardiology recomended to DC his amiodarone for the reason stated above. Neurosyphilis: CSF VDRL positive, patient finished a course of IV penicillin 21 days Diarrhea. Resolved, etiology likely secondary to Giardia. Giardia antigen positive in stool. Completed a course of Flagyl. Oral candidiasis was treated with Fluconazole and will continue with fluconazole prophylaxis for Crypto. HIV/AIDS. New Diagnosis. Started on HAART on 09/30, Tenofovir, Emtricitabine + Dolutegravir continue atovaquone and azithromycin prophylaxis Neutropenia. 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 continue management of underlying course. Prognosis poor. Patient transferred to LTAC with PEG and trach.. Disposition: [id number]/[place]-[facility] Time spent for discharge: 34 minutes - Discharge Diagnoses (1) Acute renal failure on dialysis Status: Acute (2) PEG (percutaneous endoscopic gastrostomy) status Status: Acute (3) Tracheostomy dependent Status: Acute (4) Acute respiratory failure with hypoxia Status: Acute (5) Decubitus ulcers Status: Acute (6) Diarrhea Status: Acute (7) Encephalopathy Status: Acute (8) Neurosyphilis Status: Acute (9) Neutropenia Status: Acute (10) Pancytopenia Status: Acute (11) Right upper lobe pulmonary infiltrate Status: Acute (12) Sepsis Status: Acute (13) Thrombocytopenia Status: Acute (14) Transaminasemia Status: Acute (15) AIDS Status: Suspected (16) Atrial fibrillation and flutter Status: Resolved (17) Hyperkalemia Status: Resolved Core Measure Documentation - Palliative Care Palliative Care/ Comfort Measures: Not Applicable - Core Measures Any of the following diagnoses?: none Exam - Physical Exam Narrative exam: Patient is on trach and PEG The patient is obese. Vital signs as documented. Head exam is unremarkable. No scleral icterus . Neck is without jugular venous distension, thyromegaly, or carotid bruits. Lungs are clear to auscultation. Cardiac exam reveals regular rate and Rhythm. First and second heart sounds normal. No murmurs, rubs or gallops. Abdominal exam reveals normal bowel sounds, no masses, no organomegaly and no aortic enlargement. Extremities are nonedematous and both femoral and pedal pulses are normal. 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 Follow simple commands. - Constitutional Vitals: Temp Pulse Resp BP Pulse Ox 100.0 F H 88 18 129/73 100 10/26/18 04:00 10/26/18 09:00 10/26/18 09:00 10/26/18 09:00 10/26/18 09:00 Plan Activity: advance as tolerated Weight Bearing Status: Weight Bear as Tolerated Diet: per dietitian instruction Wound: per wound nurse instructions Follow up with: ROSSANA MACHUCA MD [Primary Care Provider] - 7 Days
[2018-10-26] MEDS ORDERED: LOVENOX SUB-Q SCH (10:00)
[2018-10-26] MEDS ORDERED: VALGANCICLOVIR FEEDTUBE SCH (10:00)
--- NOTE | 2018-10-26 11:03 | Progress Note ---
Assessment and Plan Cultures: 09/11/2018 blood culture: no growth 09/13/2018 serum cryptococcus ag neg 09/14/2018 CSF cryptococcus ag neg 09/14/2018 stool Nona 09/15/2018 stool +Giardia ag 09/19/2018 CSF cryptococcus ag neg 09/21/2018 tracheal aspirate culture: Nona albicans 09/23/2018 blood culture: No growth 09/23/2018 Fungal blood culture: no growth thus far 10/09/2018 blood culture: No growth A/P: 33 y/o male with no PMH; admitted on 09/11/2018 due to 4 days-AMS/behavioral changes, nausea, vomiting, diarrhea, weight loss and cough, diagnosed to have HIV AIDS with multiple complications in the form of opportunistic infections: 1) Disseminated CMV viremia: - CMV DNA PCR 09/16/2018 is 1,058,978, 6 log - CMV DNA PCR 09/26/2018 is 710K, 5.85 log - CMV DNA PCR 10/03/2018 is 262K, 5.4 log - CMV DNA PCR 10/17/2018 <200 - completed 31 days of IV Ganciclovir and now transitioned to PO Valcyte renally adjusted as prophylaxis. Valcyte potentially can be d/kathy if neutropenia continues. 2) Neurosyphilis: CSF VDRL positive, off Ceftriaxone and back on IV Penicillin completed 21 days. 3) HIV/AIDS: ?newly diagnosed. Risk factor is MSM behavior. CD4=4. VL=50,700. 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 We started him on ART on 09/30/2018, watch closely for IRIS (initially was Truvada + Dolutegravir but with decline in renal function, d/kathy Tenofovir and switched to ritonavir boosted Darunavir). F/U HIV PCR and CD4 count from 10/21/2018. Continue Atovaquone for prophylaxis. Azithromycin prophylaxis was d/kathy. 4) Acute respiratory failure: still on the vent minimal settings, mainly due to mental status issues. PJP DFA negative. CXR stable without pneumonia. S/P trach and PEG 10/25/2018. 5) Acute encephalopathy: possibly mixed from neurosyphilis and CMV encephalitis. Of note, MRI did not show ventriculitis. CSF YAYO virus DNA PCR neg. Toxo IgG negative. EEG x 2 no epileptic activity - CSF CMV DNA PCR on 10/10/2018 was 43,564 4.6 log - improving 6) Diarrhea: previously due to Giardiasis, in immunocompromised patient. Completed several days of Flagyl, stopped on 10/03/2018. F/U stool for WBC and giardia. Diarrhea could also be related to AIDS enteropathy. 7) Oral candidiasis: on fluconazole, will need to continue as prophylaxis till immune reconstitution. Continue 100 mg daily. Given diarrhea, will check stool for WBC and Giardia/Cryptosporidium. 8) A.fib: cardiology signed off. On Amiodarone, dose adjusted but interacts with PI. Consider discontinuing if not needed. 9) Neutropenia: likely from HIV/CMV myelosuppression. Also probably worse from ganciclovir. r/o disseminated MAC, thus far cultures negative. s/p neupogen 1 dose on 10/05/2018 10) Acute renal failure: on HD. Nephrology following. Off Tenofovir. 11) NGT-associated sinusitis/mastoiditis, treated for 7 days with Abx. Recs: - continue HAART: currently on renally adjusted Emtricitabine along with Dolutegravir and ritonavir boosted Darunavir. F/U HIV PCR, repeat Genotype (to look for archived mutations) and CD4 count from 10/21/2018 - continue Atovaquone prophylaxis - continue Fluconazole 100 mg daily as prophylaxis, especially given ongoing neutropenia - continue Valcyte for CMV secondary prophylaxis, f/u weekly CMV DNA PCRs. Consider stopping once immune re-constitution. - If neutropenia persists, consider stopping Valcyte complete in hopes for count recovery - strongly recommend ID follow up closely while at LTAC MD Luisana [facility] C: [phone] O: [phone] F: [phone] Subjective Date of service: 10/26/18 Principal diagnosis: low wbc Interval history: Low grade temp of 100F. Otherwise stable. Remains on the vent, s/p trach and PEG. Opens eyes when called. Objective - Exam Narrative Exam: Physical Exam: Constitutional: awake and following commands intermittently Head, Ears, Nose: Normocephalic, atraumatic. Eyes: Conjunctivae/corneas clear. No icterus. No ptosis. Neck: Supple, no meningeal signs. Trach + Oral: no thrush Cardiovascular: S1, S2 normal. Respiratory: Good air entry, clear to auscultation bilaterally GI: Soft, bowel sounds normal. No peritoneal signs. PEG +. Rectal tube + Musculoskeletal: No pedal edema, no cyanosis. Skin: No rash or abscess Hem/Lymphatic: No palpable cervical or supraclavicular nodes. No lymphangitis Psych: calm, without agitation Neurological: awake, following basic commands intermittently - Constitutional Vitals: Vital Signs Temp Pulse Resp BP Pulse Ox 99.4 F 89 18 132/81 100 10/26/18 08:00 10/26/18 10:40 10/26/18 09:00 10/26/18 10:40 10/26/18 10:40 Temperature -Last 24 Hours Temperature 99.4 F Temperature 100.0 F Temperature 99.4 F Temperature 99.0 F Temperature 99.4 F Temperature 98.4 F - Labs CBC & Chem 7: 10/25/18 19:35 10/25/18 05:20 Labs: Abnormal lab results 10/25/18 10/25/18 Range/Units 09:25 19:35 WBC 0.9 L* (4.5-11.0) K/mm3 RBC 2.64 L (3.65-5.03) M/mm3 Hgb 8.0 L (11.8-15.2) gm/dl Hct 24.2 L (35.5-45.6) % RDW 19.4 H (13.2-15.2) % Crossmatch See Detail
[2018-10-26] MEDS: KEPPRA PO SCH (11:17)
[2018-10-26] MEDS: LOPRESSOR PO SCH (11:18)
[2018-10-26] MEDS: FOLVITE PO SCH (11:18)
[2018-10-26] MEDS: PEPCID PO SCH (11:18)
[2018-10-26] MEDS: TIVICAY PO SCH (11:19)
[2018-10-26] MEDS: DIFLUCAN PO SCH (11:19)
[2018-10-26] MEDS: NORVIR PO SCH (11:20)
[2018-10-26] MEDS: PREZISTA PO SCH (11:20)
[2018-10-26] MEDS: MEPRON PO SCH (11:20)
--- NOTE | 2018-10-26 11:54 | Progress Note ---
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) Elevated LFTs Neutropenia Thrombocytopenia - resumed daily SBT's as tolerated - routine trach care per RT - resumed lovenox for VTE prophylaxis as HIT assay negative - continue SCD's for VTE prophylaxis - prn ABG's & CXR's at this point - continue HD/UF for toxin and volume clearance - continue therapy for CMV encephalitis, neuro syphillis as well as ART - appreciate ID input - continue Robinul & scopolamine for secretion control (secretions improved) - continue to hold all other sedating medications - continue supplemental oxygen to keep sats > 90% - continue bronchodilators with pulmonary hygiene per RT - Continue empiric and targeted anti-infective's per ID recs antibiotics per ID - continue set rate at 12/min - daily SAT's if sedation resumed - continue enteral nutrition as tolerated - when resumed target sedation for RASS 0 to -1 - PT/OT/ROM exercises as tolerated - mobility protocol for pressure ulcer prophylaxis - continue GI & VTE prophylaxis - continue other care per attending / other consultants ...... re-evaluate in am & prn .... care plan discussed at length with sister during team rounds The high probability of a clinically significant, sudden or life threatening deterioration of the [cardiac, respiratory and neurologic] system(s) required my full and direct attention, intervention and personal management. The aggregate critical care time was [32] minutes. This time is in addition to time spent performing reported procedures but includes the following: [x] Data Review and interpretation [x] Patient assessment and monitoring of vital signs [x] Documentation [x] Medication orders and management Subjective Date of service: 10/26/18 Principal diagnosis: Severe sepsis; Ac hypoxemic Resp failure; [place]. Pneumonia; Ac encephalopathy Interval history: Patient is seen today for: Severe sepsis (present on admission with fever, tachycardia, hypotension and elevated lactate); Acute hypoxemic Respiratory failure; Bilateral pneumonia; Acute encephalopathy (Toxic / Metabolic); Atrial Fibrillation with RVR Seen and examined at bedside; 24hour events reviewed; nursing and respiratory care staff consulted; no adverse overnight events reported to me; resting peacefully in bed; on PSV trial and tolerating well; moved left foot to commands and attempted to squeeze my left hand; no N/V/F/C and no gross bleeding Objective Vital Signs - 12hr 10/26/18 10/26/18 10/26/18 00:00 01:00 02:00 Temperature 99.4 F Pulse Rate 86 84 84 Pulse Rate [ 84 Bases] Respiratory 25 H 18 21 Rate Respiratory 22 Rate [Bases] Blood Pressure 126/84 136/71 127/67 O2 Sat by Pulse 100 100 100 Oximetry O2 Sat by Pulse Oximetry [ Assessment] 10/26/18 10/26/18 10/26/18 03:00 04:00 05:00 Temperature 100.0 F H Pulse Rate 86 85 84 Pulse Rate [ Bases] Respiratory 22 18 21 Rate Respiratory Rate [Bases] Blood Pressure 132/75 136/75 117/65 O2 Sat by Pulse 100 100 100 Oximetry O2 Sat by Pulse Oximetry [ Assessment] 10/26/18 10/26/18 10/26/18 06:00 07:00 07:48 Temperature Pulse Rate 84 81 83 Pulse Rate [ 84 Bases] Respiratory 24 18 Rate Respiratory 29 H Rate [Bases] Blood Pressure 130/71 115/61 141/76 O2 Sat by Pulse 100 100 100 Oximetry O2 Sat by Pulse 100 Oximetry [ Assessment] 10/26/18 10/26/18 10/26/18 08:00 08:29 09:00 Temperature 99.4 F Pulse Rate 84 88 88 Pulse Rate [ 88 Bases] Respiratory 14 18 Rate Respiratory 30 H Rate [Bases] Blood Pressure 128/75 159/76 129/73 O2 Sat by Pulse 100 100 100 Oximetry O2 Sat by Pulse Oximetry [ Assessment] 10/26/18 10/26/18 10/26/18 10:00 10:40 11:00 Temperature Pulse Rate 90 89 89 Pulse Rate [ Bases] Respiratory 17 24 Rate Respiratory Rate [Bases] Blood Pressure 145/89 132/81 148/77 O2 Sat by Pulse 100 100 100 Oximetry O2 Sat by Pulse Oximetry [ Assessment] 10/26/18 11:18 Temperature Pulse Rate 91 H Pulse Rate [ Bases] Respiratory Rate Respiratory Rate [Bases] Blood Pressure 146/77 O2 Sat by Pulse Oximetry O2 Sat by Pulse Oximetry [ Assessment] Constitutional: lethargic, agitated, appears uncomfortable, other (young looking AAM, normocephalic with mildly increased respiratory effort at rest) Eyes: non-icteric ENT: oropharynx moist, other (Shiley # 8 trach tube in midline of neck) Neck: supple, no lymphadenopathy, other (Shiley # 8 trach tube in midline of neck) Effort: normal Ascultation: Bilateral: rales, rhonchi (scant) Percussion: Bilateral: not dull Cardiovascular: regular rate and rhythm, other (S1,S2, no murmurs, gallps or rubs) Gastrointestinal: normoactive bowel sounds, soft, non-tender, non-distended Integumentary: rash Extremities: no cyanosis, pulses normal, no ischemia or petechiae, edema (1+) Neurologic: pupils equal and round, other (Left sided hemiparesis) Psychiatric: other (unable to assess) CBC and BMP: 10/25/18 19:35 10/25/18 05:20 ABG, PT/INR, D-dimer: ABG POC ABG pH 7.399 (7.35-7.45) 10/20/18 12:17 POC ABG pCO2 33.3 (35-45) L 10/20/18 12:17 POC ABG pO2 107 (80-105) H 10/20/18 12:17 POC ABG HCO3 20.6 10/20/18 12:17 POC ABG Total CO2 22 10/20/18 12:17 POC ABG O2 Sat 98 10/20/18 12:17 PT/INR, D-dimer PT 16.0 Sec. (12.2-14.9) H 10/10/18 08:09 INR 1.20 (0.87-1.13) H 10/10/18 08:09 Abnormal lab findings: Abnormal Labs 09/11/18 09/11/18 09/11/18 18:00 18:00 18:00 WBC 1.9 L* RBC Hgb Hct RDW Plt Count 130 L Seg Neuts % (Manual) Lymphocytes % (Manual) Monocytes % (Manual) 16.0 H Eosinophils % (Manual) Basophils % (Manual) Nucleated RBC % Seg Neutrophils # Man 0.9 L Abs Lymphs (Manual) Lymphocytes # (Manual) 0.5 L Basophils # (Manual) PT INR APTT Heparin Anti-Xa Level POC ABG pH POC ABG pCO2 POC ABG pO2 Sodium 131 L Potassium Chloride Carbon Dioxide 17 L BUN 21 H Creatinine Glucose 126 H POC Glucose Lactic Acid 2.60 H* Calcium 8.1 L Phosphorus Magnesium Iron TIBC Ferritin AST 123 H ALT 115 H Total Creatine Kinase Total Protein Albumin 3.0 L Vitamin B12 Folate TSH Free T4 Urine WBC (Auto) Urine Creatinine Urine Chloride Urine Total Protein CSF VDRL Lymph Enumerat CD4/CD8 Absolute CD3 Count % CD4 Cells Absolute CD4 Count % CD8 Cells Absolute CD19 Count T.pallidum Ab (FTA-ABS) HIV-1 RNA PCR copies/ml HIV-1 RNA (PCR) log Miscellaneous Test Crossmatch 09/11/18 09/13/18 09/13/18 19:01 04:28 07:31 WBC 2.0 L RBC Hgb Hct RDW Plt Count 116 L Seg Neuts % (Manual) Lymphocytes % (Manual) Monocytes % (Manual) 8.0 H Eosinophils % (Manual) Basophils % (Manual) Nucleated RBC % Seg Neutrophils # Man 1.0 L Abs Lymphs (Manual) Lymphocytes # (Manual) 0.5 L Basophils # (Manual) PT INR APTT Heparin Anti-Xa Level POC ABG pH POC ABG pCO2 POC ABG pO2 Sodium Potassium Chloride 110.4 H Carbon Dioxide 19 L BUN Creatinine Glucose POC Glucose Lactic Acid 3.70 H* Calcium 7.9 L Phosphorus Magnesium Iron TIBC Ferritin AST ALT Total Creatine Kinase Total Protein Albumin Vitamin B12 Folate TSH Free T4 Urine WBC (Auto) Urine Creatinine Urine Chloride Urine Total Protein CSF VDRL Lymph Enumerat CD4/CD8 Absolute CD3 Count % CD4 Cells Absolute CD4 Count % CD8 Cells Absolute CD19 Count T.pallidum Ab (FTA-ABS) HIV-1 RNA PCR copies/ml HIV-1 RNA (PCR) log Miscellaneous Test Crossmatch 09/13/18 09/13/18 09/13/18 07:31 12:29 12:29 WBC RBC Hgb Hct RDW Plt Count Seg Neuts % (Manual) Lymphocytes % (Manual) Monocytes % (Manual) Eosinophils % (Manual) Basophils % (Manual) Nucleated RBC % Seg Neutrophils # Man Abs Lymphs (Manual) 309 L Lymphocytes # (Manual) Basophils # (Manual) PT INR APTT Heparin Anti-Xa Level POC ABG pH POC ABG pCO2 POC ABG pO2 Sodium Potassium Chloride Carbon Dioxide BUN Creatinine Glucose POC Glucose Lactic Acid Calcium Phosphorus Magnesium Iron TIBC Ferritin AST 70 H ALT 68 H Total Creatine Kinase Total Protein Albumin 2.5 L Vitamin B12 Folate TSH Free T4 Urine WBC (Auto) Urine Creatinine Urine Chloride Urine Total Protein CSF VDRL Lymph Enumerat CD4/CD8 0.01 L Absolute CD3 Count 220 L % CD4 Cells 1 L Absolute CD4 Count 4 L % CD8 Cells 70 H Absolute CD19 Count 54 L T.pallidum Ab (FTA-ABS) HIV-1 RNA PCR copies/ml 81062 H HIV-1 RNA (PCR) log 4.71 H Miscellaneous Test Crossmatch 09/13/18 09/14/18 09/14/18 12:29 07:17 16:34 WBC RBC Hgb Hct RDW Plt Count Seg Neuts % (Manual) Lymphocytes % (Manual) Monocytes % (Manual) Eosinophils % (Manual) Basophils % (Manual) Nucleated RBC % Seg Neutrophils # Man Abs Lymphs (Manual) Lymphocytes # (Manual) Basophils # (Manual) PT INR APTT Heparin Anti-Xa Level POC ABG pH POC ABG pCO2 POC ABG pO2 Sodium Potassium 3.4 L Chloride Carbon Dioxide 18 L BUN Creatinine Glucose 104 H POC Glucose Lactic Acid Calcium 7.6 L Phosphorus Magnesium Iron TIBC Ferritin AST 49 H ALT Total Creatine Kinase Total Protein Albumin 2.5 L Vitamin B12 Folate TSH Free T4 Urine WBC (Auto) Urine Creatinine Urine Chloride Urine Total Protein CSF VDRL Lymph Enumerat CD4/CD8 Absolute CD3 Count % CD4 Cells Absolute CD4 Count % CD8 Cells Absolute CD19 Count T.pallidum Ab (FTA-ABS) Reactive H HIV-1 RNA PCR copies/ml HIV-1 RNA (PCR) log Miscellaneous Test Flexitest 1 H Crossmatch 09/15/18 09/15/18 09/15/18 05:05 05:05 Unknown WBC 1.6 L* RBC Hgb 10.4 L Hct 31.1 L D RDW Plt Count 113 L Seg Neuts % (Manual) Lymphocytes % (Manual) Monocytes % (Manual) Eosinophils % (Manual) Basophils % (Manual) Nucleated RBC % Seg Neutrophils # Man Abs Lymphs (Manual) Lymphocytes # (Manual) Basophils # (Manual) PT INR APTT Heparin Anti-Xa Level POC ABG pH POC ABG pCO2 POC ABG pO2 Sodium Potassium Chloride 107.9 H Carbon Dioxide 18 L BUN 6 L Creatinine Glucose POC Glucose Lactic Acid Calcium 7.4 L Phosphorus Magnesium Iron TIBC Ferritin AST ALT Total Creatine Kinase Total Protein Albumin Vitamin B12 Folate TSH Free T4 Urine WBC (Auto) Urine Creatinine Urine Chloride Urine Total Protein CSF VDRL Reactive 1:8 H Lymph Enumerat CD4/CD8 Absolute CD3 Count % CD4 Cells Absolute CD4 Count % CD8 Cells Absolute CD19 Count T.pallidum Ab (FTA-ABS) HIV-1 RNA PCR copies/ml HIV-1 RNA (PCR) log Miscellaneous Test Crossmatch 09/16/18 09/16/18 09/16/18 06:55 11:41 11:41 WBC 2.8 L RBC Hgb 10.9 L Hct 33.5 L RDW Plt Count 135 L Seg Neuts % (Manual) Lymphocytes % (Manual) Monocytes % (Manual) Eosinophils % (Manual) Basophils % (Manual) Nucleated RBC % Seg Neutrophils # Man Abs Lymphs (Manual) Lymphocytes # (Manual) Basophils # (Manual) PT INR APTT Heparin Anti-Xa Level POC ABG pH POC ABG pCO2 POC ABG pO2 Sodium Potassium Chloride Carbon Dioxide BUN Creatinine Glucose POC Glucose Lactic Acid Calcium Phosphorus Magnesium Iron TIBC Ferritin AST ALT Total Creatine Kinase Total Protein Albumin Vitamin B12 Folate TSH 4.210 H Free T4 0.72 L Urine WBC (Auto) Urine Creatinine Urine Chloride Urine Total Protein CSF VDRL Lymph Enumerat CD4/CD8 Absolute CD3 Count % CD4 Cells Absolute CD4 Count % CD8 Cells Absolute CD19 Count T.pallidum Ab (FTA-ABS) HIV-1 RNA PCR copies/ml HIV-1 RNA (PCR) log Miscellaneous Test Crossmatch 09/16/18 09/16/18 09/17/18 11:41 15:43 05:13 WBC 2.0 L RBC Hgb 10.9 L Hct 32.7 L RDW Plt Count Seg Neuts % (Manual) Lymphocytes % (Manual) Monocytes % (Manual) Eosinophils % (Manual) Basophils % (Manual) Nucleated RBC % Seg Neutrophils # Man Abs Lymphs (Manual) Lymphocytes # (Manual) Basophils # (Manual) PT INR APTT Heparin Anti-Xa Level POC ABG pH POC ABG pCO2 29.3 L POC ABG pO2 70 L Sodium Potassium Chloride Carbon Dioxide BUN Creatinine Glucose POC Glucose Lactic Acid Calcium Phosphorus Magnesium Iron TIBC Ferritin AST ALT Total Creatine Kinase Total Protein Albumin Vitamin B12 934.5 H Folate TSH Free T4 Urine WBC (Auto) Urine Creatinine Urine Chloride Urine Total Protein CSF VDRL Lymph Enumerat CD4/CD8 Absolute CD3 Count % CD4 Cells Absolute CD4 Count % CD8 Cells Absolute CD19 Count T.pallidum Ab (FTA-ABS) HIV-1 RNA PCR copies/ml HIV-1 RNA (PCR) log Miscellaneous Test Crossmatch 09/17/18 09/17/18 09/18/18 05:13 21:57 12:46 WBC RBC Hgb Hct RDW Plt Count Seg Neuts % (Manual) Lymphocytes % (Manual) Monocytes % (Manual) Eosinophils % (Manual) Basophils % (Manual) Nucleated RBC % Seg Neutrophils # Man Abs Lymphs (Manual) Lymphocytes # (Manual) Basophils # (Manual) PT INR APTT Heparin Anti-Xa Level POC ABG pH POC ABG pCO2 POC ABG pO2 Sodium Potassium Chloride 107.2 H Carbon Dioxide 21 L BUN 3 L Creatinine 0.7 L Glucose POC Glucose 108 H Lactic Acid Calcium 7.9 L Phosphorus Magnesium Iron TIBC Ferritin AST ALT Total Creatine Kinase Total Protein 6.1 L Albumin 2.6 L Vitamin B12 Folate TSH Free T4 0.75 L Urine WBC (Auto) Urine Creatinine Urine Chloride Urine Total Protein CSF VDRL Lymph Enumerat CD4/CD8 Absolute CD3 Count % CD4 Cells Absolute CD4 Count % CD8 Cells Absolute CD19 Count T.pallidum Ab (FTA-ABS) HIV-1 RNA PCR copies/ml HIV-1 RNA (PCR) log Miscellaneous Test Crossmatch 09/18/18 09/19/18 09/19/18 12:46 04:57 04:57 WBC 2.1 L RBC Hgb 11.4 L Hct 34.2 L RDW Plt Count Seg Neuts % (Manual) Lymphocytes % (Manual) Monocytes % (Manual) Eosinophils % (Manual) Basophils % (Manual) Nucleated RBC % Seg Neutrophils # Man Abs Lymphs (Manual) Lymphocytes # (Manual) Basophils # (Manual) PT INR APTT Heparin Anti-Xa Level POC ABG pH POC ABG pCO2 POC ABG pO2 Sodium Potassium Chloride Carbon Dioxide 19 L BUN 6 L Creatinine Glucose POC Glucose Lactic Acid Calcium 7.9 L Phosphorus Magnesium Iron TIBC Ferritin AST ALT Total Creatine Kinase Total Protein Albumin Vitamin B12 Folate TSH 5.190 H Free T4 Urine WBC (Auto) Urine Creatinine Urine Chloride Urine Total Protein CSF VDRL Lymph Enumerat CD4/CD8 Absolute CD3 Count % CD4 Cells Absolute CD4 Count % CD8 Cells Absolute CD19 Count T.pallidum Ab (FTA-ABS) HIV-1 RNA PCR copies/ml HIV-1 RNA (PCR) log Miscellaneous Test Crossmatch 09/19/18 09/19/18 09/20/18 15:00 15:00 05:33 WBC RBC Hgb Hct RDW Plt Count Seg Neuts % (Manual) Lymphocytes % (Manual) Monocytes % (Manual) Eosinophils % (Manual) Basophils % (Manual) Nucleated RBC % Seg Neutrophils # Man Abs Lymphs (Manual) Lymphocytes # (Manual) Basophils # (Manual) PT INR APTT Heparin Anti-Xa Level POC ABG pH POC ABG pCO2 POC ABG pO2 Sodium 136 L Potassium Chloride Carbon Dioxide 19 L BUN 7 L Creatinine Glucose POC Glucose Lactic Acid Calcium Phosphorus Magnesium Iron TIBC Ferritin AST ALT Total Creatine Kinase Total Protein Albumin Vitamin B12 Folate TSH Free T4 Urine WBC (Auto) Urine Creatinine Urine Chloride Urine Total Protein CSF VDRL Reactive 1:4 H Lymph Enumerat CD4/CD8 Absolute CD3 Count % CD4 Cells Absolute CD4 Count % CD8 Cells Absolute CD19 Count T.pallidum Ab (FTA-ABS) HIV-1 RNA PCR copies/ml HIV-1 RNA (PCR) log Miscellaneous Test Flexitest 1 H Crossmatch 09/20/18 09/21/18 09/21/18 06:52 01:06 03:49 WBC 2.5 L RBC Hgb Hct RDW Plt Count Seg Neuts % (Manual) Lymphocytes % (Manual) Monocytes % (Manual) Eosinophils % (Manual) Basophils % (Manual) Nucleated RBC % Seg Neutrophils # Man Abs Lymphs (Manual) Lymphocytes # (Manual) Basophils # (Manual) PT INR APTT Heparin Anti-Xa Level POC ABG pH 7.159 L POC ABG pCO2 32.9 L 70.0 H POC ABG pO2 62 L 254 H Sodium Potassium Chloride Carbon Dioxide BUN Creatinine Glucose POC Glucose Lactic Acid Calcium Phosphorus Magnesium Iron TIBC Ferritin AST ALT Total Creatine Kinase Total Protein Albumin Vitamin B12 Folate TSH Free T4 Urine WBC (Auto) Urine Creatinine Urine Chloride Urine Total Protein CSF VDRL Lymph Enumerat CD4/CD8 Absolute CD3 Count % CD4 Cells Absolute CD4 Count % CD8 Cells Absolute CD19 Count T.pallidum Ab (FTA-ABS) HIV-1 RNA PCR copies/ml HIV-1 RNA (PCR) log Miscellaneous Test Crossmatch 09/21/18 09/21/18 09/21/18 04:15 04:15 04:25 WBC 3.1 L RBC Hgb 11.6 L Hct RDW Plt Count Seg Neuts % (Manual) Lymphocytes % (Manual) Monocytes % (Manual) 12.0 H Eosinophils % (Manual) Basophils % (Manual) Nucleated RBC % Seg Neutrophils # Man 1.6 L Abs Lymphs (Manual) Lymphocytes # (Manual) 0.5 L Basophils # (Manual) PT INR APTT Heparin Anti-Xa Level POC ABG pH POC ABG pCO2 POC ABG pO2 Sodium Potassium 6.1 H* D Chloride Carbon Dioxide 19 L BUN Creatinine Glucose 108 H POC Glucose Lactic Acid Calcium Phosphorus Magnesium Iron TIBC Ferritin AST ALT Total Creatine Kinase 685 H Total Protein Albumin Vitamin B12 Folate TSH Free T4 Urine WBC (Auto) Urine Creatinine Urine Chloride Urine Total Protein CSF VDRL Lymph Enumerat CD4/CD8 Absolute CD3 Count % CD4 Cells Absolute CD4 Count % CD8 Cells Absolute CD19 Count T.pallidum Ab (FTA-ABS) HIV-1 RNA PCR copies/ml HIV-1 RNA (PCR) log Miscellaneous Test Crossmatch 09/21/18 09/21/18 09/21/18 09:59 10:07 11:00 WBC RBC Hgb 11.7 L Hct RDW Plt Count Seg Neuts % (Manual) Lymphocytes % (Manual) Monocytes % (Manual) Eosinophils % (Manual) Basophils % (Manual) Nucleated RBC % Seg Neutrophils # Man Abs Lymphs (Manual) Lymphocytes # (Manual) Basophils # (Manual) PT INR APTT Heparin Anti-Xa Level POC ABG pH 7.301 L POC ABG pCO2 POC ABG pO2 109 H Sodium Potassium 6.5 H* Chloride Carbon Dioxide 18 L BUN Creatinine 2.1 H D Glucose POC Glucose Lactic Acid Calcium 8.1 L Phosphorus Magnesium Iron TIBC Ferritin AST 94 H ALT Total Creatine Kinase Total Protein Albumin 2.8 L Vitamin B12 Folate TSH Free T4 Urine WBC (Auto) Urine Creatinine Urine Chloride Urine Total Protein CSF VDRL Lymph Enumerat CD4/CD8 Absolute CD3 Count % CD4 Cells Absolute CD4 Count % CD8 Cells Absolute CD19 Count T.pallidum Ab (FTA-ABS) HIV-1 RNA PCR copies/ml HIV-1 RNA (PCR) log Miscellaneous Test Crossmatch 09/21/18 09/21/18 09/21/18 15:00 21:54 21:54 WBC RBC Hgb Hct RDW Plt Count Seg Neuts % (Manual) Lymphocytes % (Manual) Monocytes % (Manual) Eosinophils % (Manual) Basophils % (Manual) Nucleated RBC % Seg Neutrophils # Man Abs Lymphs (Manual) Lymphocytes # (Manual) Basophils # (Manual) PT 19.9 H INR 1.65 H APTT 40.9 H Heparin Anti-Xa Level 0.98 H POC ABG pH POC ABG pCO2 POC ABG pO2 Sodium Potassium 5.2 H Chloride Carbon Dioxide BUN Creatinine Glucose POC Glucose Lactic Acid Calcium Phosphorus Magnesium Iron TIBC Ferritin AST ALT Total Creatine Kinase Total Protein Albumin Vitamin B12 Folate TSH Free T4 Urine WBC (Auto) Urine Creatinine Urine Chloride Urine Total Protein CSF VDRL Lymph Enumerat CD4/CD8 Absolute CD3 Count % CD4 Cells Absolute CD4 Count % CD8 Cells Absolute CD19 Count T.pallidum Ab (FTA-ABS) HIV-1 RNA PCR copies/ml HIV-1 RNA (PCR) log Miscellaneous Test Crossmatch 09/21/18 09/22/18 09/22/18 22:57 03:01 05:27 WBC RBC Hgb Hct RDW Plt Count Seg Neuts % (Manual) Lymphocytes % (Manual) Monocytes % (Manual) Eosinophils % (Manual) Basophils % (Manual) Nucleated RBC % Seg Neutrophils # Man Abs Lymphs (Manual) Lymphocytes # (Manual) Basophils # (Manual) PT INR APTT Heparin Anti-Xa Level POC ABG pH POC ABG pCO2 32.7 L POC ABG pO2 Sodium Potassium Chloride Carbon Dioxide BUN Creatinine Glucose POC Glucose 124 H 128 H Lactic Acid Calcium Phosphorus Magnesium Iron TIBC Ferritin AST ALT Total Creatine Kinase Total Protein Albumin Vitamin B12 Folate TSH Free T4 Urine WBC (Auto) Urine Creatinine Urine Chloride Urine Total Protein CSF VDRL Lymph Enumerat CD4/CD8 Absolute CD3 Count % CD4 Cells Absolute CD4 Count % CD8 Cells Absolute CD19 Count T.pallidum Ab (FTA-ABS) HIV-1 RNA PCR copies/ml HIV-1 RNA (PCR) log Miscellaneous Test Crossmatch 09/22/18 09/22/18 09/22/18 07:00 07:00 11:32 WBC 1.8 L* RBC 3.59 L Hgb 10.1 L Hct 30.8 L RDW Plt Count 126 L Seg Neuts % (Manual) Lymphocytes % (Manual) Monocytes % (Manual) Eosinophils % (Manual) Basophils % (Manual) Nucleated RBC % Seg Neutrophils # Man Abs Lymphs (Manual) Lymphocytes # (Manual) Basophils # (Manual) PT INR APTT Heparin Anti-Xa Level POC ABG pH POC ABG pCO2 POC ABG pO2 Sodium Potassium Chloride Carbon Dioxide BUN 27 H Creatinine 2.0 H Glucose 128 H POC Glucose 123 H Lactic Acid Calcium 6.9 L Phosphorus Magnesium Iron TIBC Ferritin AST ALT Total Creatine Kinase Total Protein Albumin Vitamin B12 Folate TSH Free T4 Urine WBC (Auto) Urine Creatinine Urine Chloride Urine Total Protein CSF VDRL Lymph Enumerat CD4/CD8 Absolute CD3 Count % CD4 Cells Absolute CD4 Count % CD8 Cells Absolute CD19 Count T.pallidum Ab (FTA-ABS) HIV-1 RNA PCR copies/ml HIV-1 RNA (PCR) log Miscellaneous Test Crossmatch 09/22/18 09/22/18 09/22/18 15:52 18:18 23:52 WBC RBC Hgb Hct RDW Plt Count Seg Neuts % (Manual) Lymphocytes % (Manual) Monocytes % (Manual) Eosinophils % (Manual) Basophils % (Manual) Nucleated RBC % Seg Neutrophils # Man Abs Lymphs (Manual) Lymphocytes # (Manual) Basophils # (Manual) PT INR APTT Heparin Anti-Xa Level POC ABG pH POC ABG pCO2 48.7 H POC ABG pO2 Sodium Potassium Chloride Carbon Dioxide BUN Creatinine Glucose POC Glucose 110 H 124 H Lactic Acid Calcium Phosphorus Magnesium Iron TIBC Ferritin AST ALT Total Creatine Kinase Total Protein Albumin Vitamin B12 Folate TSH Free T4 Urine WBC (Auto) Urine Creatinine Urine Chloride Urine Total Protein CSF VDRL Lymph Enumerat CD4/CD8 Absolute CD3 Count % CD4 Cells Absolute CD4 Count % CD8 Cells Absolute CD19 Count T.pallidum Ab (FTA-ABS) HIV-1 RNA PCR copies/ml HIV-1 RNA (PCR) log Miscellaneous Test Crossmatch 09/23/18 09/23/18 09/23/18 04:10 05:55 05:55 WBC RBC Hgb 10.0 L Hct 30.3 L RDW Plt Count 117 L Seg Neuts % (Manual) Lymphocytes % (Manual) Monocytes % (Manual) Eosinophils % (Manual) Basophils % (Manual) Nucleated RBC % Seg Neutrophils # Man Abs Lymphs (Manual) Lymphocytes # (Manual) Basophils # (Manual) PT INR APTT Heparin Anti-Xa Level 0.26 L POC ABG pH POC ABG pCO2 POC ABG pO2 144 H Sodium Potassium Chloride Carbon Dioxide BUN Creatinine Glucose POC Glucose Lactic Acid Calcium Phosphorus Magnesium Iron TIBC Ferritin AST ALT Total Creatine Kinase Total Protein Albumin Vitamin B12 Folate TSH Free T4 Urine WBC (Auto) Urine Creatinine Urine Chloride Urine Total Protein CSF VDRL Lymph Enumerat CD4/CD8 Absolute CD3 Count % CD4 Cells Absolute CD4 Count % CD8 Cells Absolute CD19 Count T.pallidum Ab (FTA-ABS) HIV-1 RNA PCR copies/ml HIV-1 RNA (PCR) log Miscellaneous Test Crossmatch 09/23/18 09/23/18 09/23/18 08:10 08:10 23:57 WBC 1.3 L* RBC 3.53 L Hgb 9.9 L Hct 30.0 L RDW Plt Count 119 L Seg Neuts % (Manual) Lymphocytes % (Manual) Monocytes % (Manual) Eosinophils % (Manual) Basophils % (Manual) Nucleated RBC % Seg Neutrophils # Man Abs Lymphs (Manual) Lymphocytes # (Manual) Basophils # (Manual) PT INR APTT Heparin Anti-Xa Level POC ABG pH POC ABG pCO2 POC ABG pO2 Sodium Potassium Chloride Carbon Dioxide BUN Creatinine Glucose 122 H POC Glucose 115 H Lactic Acid Calcium 6.9 L Phosphorus Magnesium Iron TIBC Ferritin AST ALT Total Creatine Kinase Total Protein Albumin Vitamin B12 Folate TSH Free T4 Urine WBC (Auto) Urine Creatinine Urine Chloride Urine Total Protein CSF VDRL Lymph Enumerat CD4/CD8 Absolute CD3 Count % CD4 Cells Absolute CD4 Count % CD8 Cells Absolute CD19 Count T.pallidum Ab (FTA-ABS) HIV-1 RNA PCR copies/ml HIV-1 RNA (PCR) log Miscellaneous Test Crossmatch 09/24/18 09/24/18 09/24/18 12:04 14:42 18:10 WBC RBC Hgb Hct RDW Plt Count Seg Neuts % (Manual) Lymphocytes % (Manual) Monocytes % (Manual) Eosinophils % (Manual) Basophils % (Manual) Nucleated RBC % Seg Neutrophils # Man Abs Lymphs (Manual) Lymphocytes # (Manual) Basophils # (Manual) PT INR APTT Heparin Anti-Xa Level 0.76 H POC ABG pH POC ABG pCO2 POC ABG pO2 Sodium Potassium Chloride Carbon Dioxide BUN Creatinine Glucose POC Glucose 111 H 138 H Lactic Acid Calcium Phosphorus Magnesium Iron TIBC Ferritin AST ALT Total Creatine Kinase Total Protein Albumin Vitamin B12 Folate TSH Free T4 Urine WBC (Auto) Urine Creatinine Urine Chloride Urine Total Protein CSF VDRL Lymph Enumerat CD4/CD8 Absolute CD3 Count % CD4 Cells Absolute CD4 Count % CD8 Cells Absolute CD19 Count T.pallidum Ab (FTA-ABS) HIV-1 RNA PCR copies/ml HIV-1 RNA (PCR) log Miscellaneous Test Crossmatch 09/25/18 09/25/18 09/25/18 03:45 04:24 14:20 WBC RBC Hgb 9.7 L Hct 29.4 L RDW Plt Count 104 L Seg Neuts % (Manual) Lymphocytes % (Manual) Monocytes % (Manual) Eosinophils % (Manual) Basophils % (Manual) Nucleated RBC % Seg Neutrophils # Man Abs Lymphs (Manual) Lymphocytes # (Manual) Basophils # (Manual) PT INR APTT Heparin Anti-Xa Level POC ABG pH 7.460 H POC ABG pCO2 32.9 L POC ABG pO2 Sodium Potassium 3.5 L Chloride 110.3 H Carbon Dioxide BUN Creatinine Glucose 105 H POC Glucose Lactic Acid Calcium 6.7 L Phosphorus Magnesium Iron TIBC Ferritin AST 633 H ALT 481 H Total Creatine Kinase Total Protein 4.8 L D Albumin 1.9 L Vitamin B12 Folate TSH Free T4 Urine WBC (Auto) Urine Creatinine Urine Chloride Urine Total Protein CSF VDRL Lymph Enumerat CD4/CD8 Absolute CD3 Count % CD4 Cells Absolute CD4 Count % CD8 Cells Absolute CD19 Count T.pallidum Ab (FTA-ABS) HIV-1 RNA PCR copies/ml HIV-1 RNA (PCR) log Miscellaneous Test Crossmatch 09/26/18 09/26/18 09/26/18 06:15 06:15 10:43 WBC 1.2 L* RBC 3.32 L Hgb 9.2 L Hct 28.6 L RDW Plt Count 97 L Seg Neuts % (Manual) 24.0 L Lymphocytes % (Manual) 43.0 H Monocytes % (Manual) 19.0 H Eosinophils % (Manual) 8.0 H Basophils % (Manual) 2.0 H Nucleated RBC % 3.0 H Seg Neutrophils # Man 0.0 L Abs Lymphs (Manual) Lymphocytes # (Manual) 0.0 L Basophils # (Manual) PT INR APTT Heparin Anti-Xa Level POC ABG pH 7.459 H POC ABG pCO2 POC ABG pO2 141 H Sodium Potassium Chloride 112.8 H Carbon Dioxide BUN Creatinine Glucose 110 H POC Glucose Lactic Acid Calcium 7.0 L Phosphorus 0.90 L* Magnesium Iron TIBC Ferritin AST 362 H ALT 360 H Total Creatine Kinase Total Protein 4.9 L Albumin 1.5 L Vitamin B12 Folate TSH Free T4 Urine WBC (Auto) Urine Creatinine Urine Chloride Urine Total Protein CSF VDRL Lymph Enumerat CD4/CD8 Absolute CD3 Count % CD4 Cells Absolute CD4 Count % CD8 Cells Absolute CD19 Count T.pallidum Ab (FTA-ABS) HIV-1 RNA PCR copies/ml HIV-1 RNA (PCR) log Miscellaneous Test Crossmatch 09/26/18 09/27/18 09/28/18 13:56 04:11 07:49 WBC RBC Hgb 9.1 L Hct 29.1 L RDW Plt Count 96 L Seg Neuts % (Manual) Lymphocytes % (Manual) Monocytes % (Manual) Eosinophils % (Manual) Basophils % (Manual) Nucleated RBC % Seg Neutrophils # Man Abs Lymphs (Manual) Lymphocytes # (Manual) Basophils # (Manual) PT INR APTT Heparin Anti-Xa Level POC ABG pH POC ABG pCO2 POC ABG pO2 Sodium 146 H Potassium Chloride 111.6 H Carbon Dioxide BUN Creatinine Glucose POC Glucose 135 H Lactic Acid Calcium 7.4 L Phosphorus Magnesium Iron TIBC Ferritin AST ALT Total Creatine Kinase Total Protein Albumin Vitamin B12 Folate TSH Free T4 Urine WBC (Auto) Urine Creatinine Urine Chloride Urine Total Protein CSF VDRL Lymph Enumerat CD4/CD8 Absolute CD3 Count % CD4 Cells Absolute CD4 Count % CD8 Cells Absolute CD19 Count T.pallidum Ab (FTA-ABS) HIV-1 RNA PCR copies/ml HIV-1 RNA (PCR) log Miscellaneous Test Crossmatch 09/28/18 09/29/18 09/29/18 10:43 05:00 05:00 WBC 1.2 L* RBC 3.13 L Hgb 8.6 L Hct 27.3 L RDW Plt Count 137 L Seg Neuts % (Manual) Lymphocytes % (Manual) Monocytes % (Manual) 16.0 H Eosinophils % (Manual) Basophils % (Manual) Nucleated RBC % 4.0 H Seg Neutrophils # Man 0.5 L Abs Lymphs (Manual) Lymphocytes # (Manual) 0.3 L Basophils # (Manual) PT INR APTT Heparin Anti-Xa Level POC ABG pH 7.300 L POC ABG pCO2 53.9 H POC ABG pO2 Sodium 147 H Potassium 3.4 L Chloride 114.5 H Carbon Dioxide BUN Creatinine Glucose POC Glucose Lactic Acid Calcium 7.7 L Phosphorus Magnesium Iron TIBC Ferritin AST 69 H ALT 110 H Total Creatine Kinase Total Protein 5.2 L Albumin 1.9 L Vitamin B12 Folate TSH Free T4 Urine WBC (Auto) Urine Creatinine Urine Chloride Urine Total Protein CSF VDRL Lymph Enumerat CD4/CD8 Absolute CD3 Count % CD4 Cells Absolute CD4 Count % CD8 Cells Absolute CD19 Count T.pallidum Ab (FTA-ABS) HIV-1 RNA PCR copies/ml HIV-1 RNA (PCR) log Miscellaneous Test Crossmatch 09/29/18 09/29/18 09/30/18 06:07 13:22 05:19 WBC 0.9 L* RBC 3.03 L Hgb 8.6 L Hct 25.9 L RDW Plt Count Seg Neuts % (Manual) Lymphocytes % (Manual) Monocytes % (Manual) Eosinophils % (Manual) Basophils % (Manual) Nucleated RBC % Seg Neutrophils # Man Abs Lymphs (Manual) Lymphocytes # (Manual) Basophils # (Manual) PT INR APTT Heparin Anti-Xa Level POC ABG pH POC ABG pCO2 46.9 H POC ABG pO2 Sodium Potassium Chloride Carbon Dioxide BUN Creatinine Glucose POC Glucose 109 H Lactic Acid Calcium Phosphorus Magnesium Iron TIBC Ferritin AST ALT Total Creatine Kinase Total Protein Albumin Vitamin B12 Folate TSH Free T4 Urine WBC (Auto) Urine Creatinine Urine Chloride Urine Total Protein CSF VDRL Lymph Enumerat CD4/CD8 Absolute CD3 Count % CD4 Cells Absolute CD4 Count % CD8 Cells Absolute CD19 Count T.pallidum Ab (FTA-ABS) HIV-1 RNA PCR copies/ml HIV-1 RNA (PCR) log Miscellaneous Test Crossmatch 09/30/18 09/30/18 09/30/18 05:19 11:14 23:28 WBC RBC Hgb Hct RDW Plt Count Seg Neuts % (Manual) Lymphocytes % (Manual) Monocytes % (Manual) Eosinophils % (Manual) Basophils % (Manual) Nucleated RBC % Seg Neutrophils # Man Abs Lymphs (Manual) Lymphocytes # (Manual) Basophils # (Manual) PT INR APTT Heparin Anti-Xa Level 0.72 H POC ABG pH POC ABG pCO2 46.6 H POC ABG pO2 Sodium 150 H Potassium Chloride 115.2 H Carbon Dioxide BUN Creatinine Glucose POC Glucose Lactic Acid Calcium 7.9 L Phosphorus Magnesium Iron TIBC Ferritin AST ALT Total Creatine Kinase Total Protein Albumin Vitamin B12 Folate TSH Free T4 Urine WBC (Auto) Urine Creatinine Urine Chloride Urine Total Protein CSF VDRL Lymph Enumerat CD4/CD8 Absolute CD3 Count % CD4 Cells Absolute CD4 Count % CD8 Cells Absolute CD19 Count T.pallidum Ab (FTA-ABS) HIV-1 RNA PCR copies/ml HIV-1 RNA (PCR) log Miscellaneous Test Crossmatch 10/01/18 10/01/18 10/02/18 04:55 04:55 07:15 WBC 0.9 L* 0.7 L* RBC 3.01 L 2.92 L Hgb 8.4 L 8.4 L Hct 26.0 L 24.9 L RDW Plt Count Seg Neuts % (Manual) Lymphocytes % (Manual) Monocytes % (Manual) Eosinophils % (Manual) Basophils % (Manual) Nucleated RBC % Seg Neutrophils # Man Abs Lymphs (Manual) Lymphocytes # (Manual) Basophils # (Manual) PT INR APTT Heparin Anti-Xa Level POC ABG pH POC ABG pCO2 POC ABG pO2 Sodium 147 H Potassium 3.4 L Chloride 113.1 H Carbon Dioxide BUN 22 H Creatinine Glucose POC Glucose Lactic Acid Calcium 7.3 L Phosphorus Magnesium Iron TIBC Ferritin AST ALT Total Creatine Kinase Total Protein Albumin Vitamin B12 Folate TSH Free T4 Urine WBC (Auto) Urine Creatinine Urine Chloride Urine Total Protein CSF VDRL Lymph Enumerat CD4/CD8 Absolute CD3 Count % CD4 Cells Absolute CD4 Count % CD8 Cells Absolute CD19 Count T.pallidum Ab (FTA-ABS) HIV-1 RNA PCR copies/ml HIV-1 RNA (PCR) log Miscellaneous Test Crossmatch 10/02/18 10/03/18 10/03/18 07:15 06:12 06:12 WBC 0.8 L* RBC 2.96 L Hgb 8.5 L Hct 25.9 L RDW 15.4 H Plt Count Seg Neuts % (Manual) Lymphocytes % (Manual) Monocytes % (Manual) Eosinophils % (Manual) Basophils % (Manual) Nucleated RBC % Seg Neutrophils # Man Abs Lymphs (Manual) Lymphocytes # (Manual) Basophils # (Manual) PT INR APTT Heparin Anti-Xa Level POC ABG pH POC ABG pCO2 POC ABG pO2 Sodium Potassium 3.4 L 3.4 L Chloride 108.3 H Carbon Dioxide BUN Creatinine Glucose POC Glucose Lactic Acid Calcium 7.6 L 7.4 L Phosphorus Magnesium Iron TIBC Ferritin AST ALT Total Creatine Kinase Total Protein Albumin Vitamin B12 Folate TSH Free T4 Urine WBC (Auto) Urine Creatinine Urine Chloride Urine Total Protein CSF VDRL Lymph Enumerat CD4/CD8 Absolute CD3 Count % CD4 Cells Absolute CD4 Count % CD8 Cells Absolute CD19 Count T.pallidum Ab (FTA-ABS) HIV-1 RNA PCR copies/ml HIV-1 RNA (PCR) log Miscellaneous Test Crossmatch 10/03/18 10/03/18 10/04/18 11:45 13:23 01:40 WBC RBC Hgb Hct RDW Plt Count Seg Neuts % (Manual) Lymphocytes % (Manual) Monocytes % (Manual) Eosinophils % (Manual) Basophils % (Manual) Nucleated RBC % Seg Neutrophils # Man Abs Lymphs (Manual) Lymphocytes # (Manual) Basophils # (Manual) PT INR APTT Heparin Anti-Xa Level 1.34 H 0.26 L POC ABG pH POC ABG pCO2 POC ABG pO2 Sodium Potassium Chloride Carbon Dioxide BUN Creatinine Glucose POC Glucose Lactic Acid Calcium Phosphorus Magnesium 1.40 L Iron TIBC Ferritin AST ALT Total Creatine Kinase Total Protein Albumin Vitamin B12 Folate TSH Free T4 Urine WBC (Auto) Urine Creatinine Urine Chloride Urine Total Protein CSF VDRL Lymph Enumerat CD4/CD8 Absolute CD3 Count % CD4 Cells Absolute CD4 Count % CD8 Cells Absolute CD19 Count T.pallidum Ab (FTA-ABS) HIV-1 RNA PCR copies/ml HIV-1 RNA (PCR) log Miscellaneous Test Crossmatch 10/04/18 10/04/18 10/06/18 04:45 04:45 09:40 WBC 0.8 L* RBC 3.11 L Hgb 9.0 L Hct 27.4 L RDW 15.4 H Plt Count Seg Neuts % (Manual) Lymphocytes % (Manual) Monocytes % (Manual) Eosinophils % (Manual) Basophils % (Manual) Nucleated RBC % Seg Neutrophils # Man Abs Lymphs (Manual) Lymphocytes # (Manual) Basophils # (Manual) PT INR APTT Heparin Anti-Xa Level POC ABG pH POC ABG pCO2 POC ABG pO2 Sodium Potassium Chloride Carbon Dioxide BUN Creatinine 0.7 L Glucose POC Glucose Lactic Acid Calcium 7.5 L Phosphorus Magnesium Iron 35 L TIBC 157 L Ferritin AST ALT Total Creatine Kinase Total Protein Albumin Vitamin B12 Folate TSH Free T4 Urine WBC (Auto) Urine Creatinine Urine Chloride Urine Total Protein CSF VDRL Lymph Enumerat CD4/CD8 Absolute CD3 Count % CD4 Cells Absolute CD4 Count % CD8 Cells Absolute CD19 Count T.pallidum Ab (FTA-ABS) HIV-1 RNA PCR copies/ml HIV-1 RNA (PCR) log Miscellaneous Test Crossmatch 10/06/18 10/06/18 10/07/18 09:40 09:40 04:20 WBC 1.1 L* RBC 3.07 L Hgb 9.1 L Hct 27.3 L RDW 20.3 H Plt Count Seg Neuts % (Manual) Lymphocytes % (Manual) Monocytes % (Manual) Eosinophils % (Manual) Basophils % (Manual) Nucleated RBC % Seg Neutrophils # Man 0.7 L Abs Lymphs (Manual) Lymphocytes # (Manual) 0.3 L Basophils # (Manual) PT INR APTT Heparin Anti-Xa Level POC ABG pH POC ABG pCO2 POC ABG pO2 Sodium Potassium Chloride Carbon Dioxide BUN Creatinine Glucose POC Glucose Lactic Acid Calcium Phosphorus Magnesium Iron TIBC Ferritin 1126.0 H AST ALT Total Creatine Kinase Total Protein Albumin Vitamin B12 Folate 6.71 L TSH Free T4 Urine WBC (Auto) Urine Creatinine Urine Chloride Urine Total Protein CSF VDRL Lymph Enumerat CD4/CD8 Absolute CD3 Count % CD4 Cells Absolute CD4 Count % CD8 Cells Absolute CD19 Count T.pallidum Ab (FTA-ABS) HIV-1 RNA PCR copies/ml HIV-1 RNA (PCR) log Miscellaneous Test Crossmatch 10/07/18 10/07/18 10/09/18 04:20 15:38 04:20 WBC 1.1 L* RBC 3.35 L Hgb 9.9 L Hct 30.1 L RDW 21.4 H Plt Count Seg Neuts % (Manual) 19.0 L Lymphocytes % (Manual) 42.0 H Monocytes % (Manual) 18.0 H Eosinophils % (Manual) 15.0 H Basophils % (Manual) 2.0 H Nucleated RBC % Seg Neutrophils # Man 0.2 L Abs Lymphs (Manual) Lymphocytes # (Manual) 0.5 L Basophils # (Manual) PT INR APTT Heparin Anti-Xa Level POC ABG pH 7.516 H POC ABG pCO2 32.1 L POC ABG pO2 Sodium Potassium Chloride Carbon Dioxide BUN Creatinine 0.7 L Glucose POC Glucose Lactic Acid Calcium 7.9 L Phosphorus Magnesium Iron TIBC Ferritin AST ALT Total Creatine Kinase Total Protein 5.5 L Albumin 2.2 L Vitamin B12 Folate TSH Free T4 Urine WBC (Auto) Urine Creatinine Urine Chloride Urine Total Protein CSF VDRL Lymph Enumerat CD4/CD8 Absolute CD3 Count % CD4 Cells Absolute CD4 Count % CD8 Cells Absolute CD19 Count T.pallidum Ab (FTA-ABS) HIV-1 RNA PCR copies/ml HIV-1 RNA (PCR) log Miscellaneous Test Crossmatch 10/09/18 10/09/18 10/09/18 04:20 11:48 17:31 WBC RBC Hgb Hct RDW Plt Count Seg Neuts % (Manual) Lymphocytes % (Manual) Monocytes % (Manual) Eosinophils % (Manual) Basophils % (Manual) Nucleated RBC % Seg Neutrophils # Man Abs Lymphs (Manual) Lymphocytes # (Manual) Basophils # (Manual) PT INR APTT Heparin Anti-Xa Level POC ABG pH POC ABG pCO2 POC ABG pO2 Sodium Potassium 5.4 H Chloride Carbon Dioxide 21 L BUN 55 H 72 H Creatinine 3.8 H D 4.5 H Glucose 118 H POC Glucose 124 H Lactic Acid Calcium 8.3 L 8.2 L Phosphorus Magnesium Iron TIBC Ferritin AST ALT Total Creatine Kinase Total Protein Albumin Vitamin B12 Folate TSH Free T4 Urine WBC (Auto) Urine Creatinine Urine Chloride Urine Total Protein CSF VDRL Lymph Enumerat CD4/CD8 Absolute CD3 Count % CD4 Cells Absolute CD4 Count % CD8 Cells Absolute CD19 Count T.pallidum Ab (FTA-ABS) HIV-1 RNA PCR copies/ml HIV-1 RNA (PCR) log Miscellaneous Test Crossmatch 10/10/18 10/10/18 10/10/18 08:09 08:35 10:54 WBC 1.1 L* RBC 3.16 L Hgb 9.6 L Hct 28.8 L RDW 21.2 H Plt Count Seg Neuts % (Manual) 27.0 L Lymphocytes % (Manual) Monocytes % (Manual) 9.0 H Eosinophils % (Manual) 18.0 H Basophils % (Manual) 12.0 H Nucleated RBC % Seg Neutrophils # Man 0.3 L Abs Lymphs (Manual) Lymphocytes # (Manual) 0.3 L Basophils # (Manual) PT 16.0 H INR 1.20 H APTT Heparin Anti-Xa Level POC ABG pH POC ABG pCO2 POC ABG pO2 Sodium Potassium 5.5 H Chloride Carbon Dioxide 20 L BUN 83 H Creatinine 5.5 H Glucose 119 H POC Glucose Lactic Acid Calcium Phosphorus Magnesium Iron TIBC Ferritin AST ALT Total Creatine Kinase Total Protein Albumin Vitamin B12 Folate TSH Free T4 Urine WBC (Auto) Urine Creatinine Urine Chloride Urine Total Protein CSF VDRL Lymph Enumerat CD4/CD8 Absolute CD3 Count % CD4 Cells Absolute CD4 Count % CD8 Cells Absolute CD19 Count T.pallidum Ab (FTA-ABS) HIV-1 RNA PCR copies/ml HIV-1 RNA (PCR) log Miscellaneous Test Crossmatch 10/10/18 10/10/18 10/11/18 Unknown Unknown 05:20 WBC 1.2 L* RBC 2.89 L Hgb 8.7 L Hct 26.0 L RDW 20.1 H Plt Count Seg Neuts % (Manual) Lymphocytes % (Manual) 8.0 L Monocytes % (Manual) 12.0 H Eosinophils % (Manual) 24.0 H Basophils % (Manual) 4.0 H Nucleated RBC % Seg Neutrophils # Man 0.6 L Abs Lymphs (Manual) Lymphocytes # (Manual) 0.1 L Basophils # (Manual) PT INR APTT Heparin Anti-Xa Level POC ABG pH POC ABG pCO2 POC ABG pO2 Sodium Potassium Chloride Carbon Dioxide BUN Creatinine Glucose POC Glucose Lactic Acid Calcium Phosphorus Magnesium Iron TIBC Ferritin AST ALT Total Creatine Kinase Total Protein Albumin Vitamin B12 Folate TSH Free T4 Urine WBC (Auto) Urine Creatinine Urine Chloride Urine Total Protein CSF VDRL Reactive 1:2 H Lymph Enumerat CD4/CD8 Absolute CD3 Count % CD4 Cells Absolute CD4 Count % CD8 Cells Absolute CD19 Count T.pallidum Ab (FTA-ABS) HIV-1 RNA PCR copies/ml HIV-1 RNA (PCR) log Miscellaneous Test Flexitest 1 H Crossmatch 10/11/18 10/11/18 10/11/18 05:20 05:40 05:40 WBC RBC Hgb Hct RDW Plt Count Seg Neuts % (Manual) Lymphocytes % (Manual) Monocytes % (Manual) Eosinophils % (Manual) Basophils % (Manual) Nucleated RBC % Seg Neutrophils # Man Abs Lymphs (Manual) Lymphocytes # (Manual) Basophils # (Manual) PT INR APTT Heparin Anti-Xa Level POC ABG pH POC ABG pCO2 POC ABG pO2 Sodium Potassium Chloride Carbon Dioxide 20 L BUN 102 H Creatinine 6.7 H Glucose POC Glucose Lactic Acid Calcium 8.3 L Phosphorus Magnesium Iron TIBC Ferritin AST ALT Total Creatine Kinase Total Protein Albumin Vitamin B12 Folate TSH Free T4 Urine WBC (Auto) 8.0 H Urine Creatinine 57.5 H Urine Chloride 35.1 L Urine Total Protein 44 H CSF VDRL Lymph Enumerat CD4/CD8 Absolute CD3 Count % CD4 Cells Absolute CD4 Count % CD8 Cells Absolute CD19 Count T.pallidum Ab (FTA-ABS) HIV-1 RNA PCR copies/ml HIV-1 RNA (PCR) log Miscellaneous Test Crossmatch 10/11/18 10/12/18 10/12/18 16:41 03:30 03:30 WBC 0.9 L* RBC 2.78 L Hgb 8.3 L Hct 25.1 L RDW 19.9 H Plt Count Seg Neuts % (Manual) Lymphocytes % (Manual) Monocytes % (Manual) Eosinophils % (Manual) 20.0 H Basophils % (Manual) Nucleated RBC % Seg Neutrophils # Man 0.5 L Abs Lymphs (Manual) Lymphocytes # (Manual) 0.3 L Basophils # (Manual) PT INR APTT Heparin Anti-Xa Level POC ABG pH 7.318 L POC ABG pCO2 POC ABG pO2 Sodium Potassium Chloride Carbon Dioxide 18 L BUN 111 H Creatinine 7.3 H Glucose POC Glucose Lactic Acid Calcium 7.9 L Phosphorus Magnesium Iron TIBC Ferritin AST ALT Total Creatine Kinase Total Protein Albumin Vitamin B12 Folate TSH Free T4 Urine WBC (Auto) Urine Creatinine Urine Chloride Urine Total Protein CSF VDRL Lymph Enumerat CD4/CD8 Absolute CD3 Count % CD4 Cells Absolute CD4 Count % CD8 Cells Absolute CD19 Count T.pallidum Ab (FTA-ABS) HIV-1 RNA PCR copies/ml HIV-1 RNA (PCR) log Miscellaneous Test Crossmatch 10/12/18 10/13/18 10/13/18 13:30 04:00 04:05 WBC 1.0 L* RBC 2.68 L Hgb 8.1 L Hct 24.3 L RDW 19.7 H Plt Count Seg Neuts % (Manual) 36.7 L Lymphocytes % (Manual) Monocytes % (Manual) Eosinophils % (Manual) 16.7 H Basophils % (Manual) 16.7 H Nucleated RBC % Seg Neutrophils # Man 0.4 L Abs Lymphs (Manual) Lymphocytes # (Manual) 0.2 L Basophils # (Manual) 0.2 H PT INR APTT Heparin Anti-Xa Level POC ABG pH 7.336 L POC ABG pCO2 31.5 L POC ABG pO2 122 H Sodium Potassium Chloride Carbon Dioxide 17 L BUN 118 H Creatinine 7.8 H Glucose 102 H POC Glucose Lactic Acid Calcium 7.8 L Phosphorus Magnesium Iron TIBC Ferritin AST ALT Total Creatine Kinase Total Protein Albumin Vitamin B12 Folate TSH Free T4 Urine WBC (Auto) Urine Creatinine Urine Chloride Urine Total Protein CSF VDRL Lymph Enumerat CD4/CD8 Absolute CD3 Count % CD4 Cells Absolute CD4 Count % CD8 Cells Absolute CD19 Count T.pallidum Ab (FTA-ABS) HIV-1 RNA PCR copies/ml HIV-1 RNA (PCR) log Miscellaneous Test Crossmatch 10/13/18 10/14/18 10/14/18 18:44 00:01 05:20 WBC RBC Hgb Hct RDW Plt Count Seg Neuts % (Manual) Lymphocytes % (Manual) Monocytes % (Manual) Eosinophils % (Manual) Basophils % (Manual) Nucleated RBC % Seg Neutrophils # Man Abs Lymphs (Manual) Lymphocytes # (Manual) Basophils # (Manual) PT INR APTT Heparin Anti-Xa Level POC ABG pH POC ABG pCO2 POC ABG pO2 Sodium Potassium Chloride Carbon Dioxide BUN Creatinine Glucose POC Glucose 141 H 134 H 171 H Lactic Acid Calcium Phosphorus Magnesium Iron TIBC Ferritin AST ALT Total Creatine Kinase Total Protein Albumin Vitamin B12 Folate TSH Free T4 Urine WBC (Auto) Urine Creatinine Urine Chloride Urine Total Protein CSF VDRL Lymph Enumerat CD4/CD8 Absolute CD3 Count % CD4 Cells Absolute CD4 Count % CD8 Cells Absolute CD19 Count T.pallidum Ab (FTA-ABS) HIV-1 RNA PCR copies/ml HIV-1 RNA (PCR) log Miscellaneous Test Crossmatch 10/14/18 10/14/18 10/14/18 09:39 09:40 11:37 WBC RBC Hgb Hct RDW Plt Count Seg Neuts % (Manual) Lymphocytes % (Manual) Monocytes % (Manual) Eosinophils % (Manual) Basophils % (Manual) Nucleated RBC % Seg Neutrophils # Man Abs Lymphs (Manual) Lymphocytes # (Manual) Basophils # (Manual) PT INR APTT Heparin Anti-Xa Level POC ABG pH POC ABG pCO2 POC ABG pO2 Sodium 147 H Potassium 3.4 L Chloride 108.1 H Carbon Dioxide 16 L BUN 124 H Creatinine 6.7 H Glucose 144 H POC Glucose 164 H Lactic Acid Calcium 7.8 L Phosphorus 8.50 H Magnesium Iron TIBC Ferritin AST ALT Total Creatine Kinase Total Protein Albumin Vitamin B12 Folate TSH Free T4 Urine WBC (Auto) Urine Creatinine Urine Chloride Urine Total Protein CSF VDRL Lymph Enumerat CD4/CD8 Absolute CD3 Count % CD4 Cells Absolute CD4 Count % CD8 Cells Absolute CD19 Count T.pallidum Ab (FTA-ABS) HIV-1 RNA PCR copies/ml HIV-1 RNA (PCR) log Miscellaneous Test Crossmatch 10/14/18 10/14/18 10/15/18 Unknown Unknown 00:05 WBC 0.5 L* RBC 2.80 L Hgb 8.2 L Hct 25.2 L RDW 19.7 H Plt Count Seg Neuts % (Manual) Lymphocytes % (Manual) 10.0 L Monocytes % (Manual) Eosinophils % (Manual) 10.0 H Basophils % (Manual) Nucleated RBC % Seg Neutrophils # Man 0.4 L Abs Lymphs (Manual) Lymphocytes # (Manual) 0.1 L Basophils # (Manual) PT INR APTT Heparin Anti-Xa Level POC ABG pH POC ABG pCO2 POC ABG pO2 Sodium Potassium Chloride Carbon Dioxide 13 L BUN 126 H Creatinine 7.7 H Glucose 153 H POC Glucose 190 H Lactic Acid Calcium 7.8 L Phosphorus Magnesium Iron TIBC Ferritin AST ALT Total Creatine Kinase Total Protein Albumin Vitamin B12 Folate TSH Free T4 Urine WBC (Auto) Urine Creatinine Urine Chloride Urine Total Protein CSF VDRL Lymph Enumerat CD4/CD8 Absolute CD3 Count % CD4 Cells Absolute CD4 Count % CD8 Cells Absolute CD19 Count T.pallidum Ab (FTA-ABS) HIV-1 RNA PCR copies/ml HIV-1 RNA (PCR) log Miscellaneous Test Crossmatch 10/15/18 10/15/18 10/15/18 04:15 04:15 05:03 WBC 0.8 L* RBC 2.73 L Hgb 8.2 L Hct 24.4 L RDW 18.8 H Plt Count Seg Neuts % (Manual) Lymphocytes % (Manual) Monocytes % (Manual) Eosinophils % (Manual) Basophils % (Manual) Nucleated RBC % Seg Neutrophils # Man Abs Lymphs (Manual) Lymphocytes # (Manual) Basophils # (Manual) PT INR APTT Heparin Anti-Xa Level POC ABG pH POC ABG pCO2 POC ABG pO2 Sodium 148 H Potassium 2.9 L* Chloride 108.5 H Carbon Dioxide 17 L BUN 127 H Creatinine 6.1 H Glucose 154 H POC Glucose 170 H Lactic Acid Calcium 7.7 L Phosphorus Magnesium Iron TIBC Ferritin AST ALT Total Creatine Kinase Total Protein 6.0 L Albumin 2.3 L Vitamin B12 Folate TSH Free T4 Urine WBC (Auto) Urine Creatinine Urine Chloride Urine Total Protein CSF VDRL Lymph Enumerat CD4/CD8 Absolute CD3 Count % CD4 Cells Absolute CD4 Count % CD8 Cells Absolute CD19 Count T.pallidum Ab (FTA-ABS) HIV-1 RNA PCR copies/ml HIV-1 RNA (PCR) log Miscellaneous Test Crossmatch 10/15/18 10/15/18 10/15/18 12:23 17:42 17:49 WBC RBC Hgb Hct RDW Plt Count Seg Neuts % (Manual) Lymphocytes % (Manual) Monocytes % (Manual) Eosinophils % (Manual) Basophils % (Manual) Nucleated RBC % Seg Neutrophils # Man Abs Lymphs (Manual) Lymphocytes # (Manual) Basophils # (Manual) PT INR APTT Heparin Anti-Xa Level POC ABG pH POC ABG pCO2 POC ABG pO2 Sodium 146 H Potassium 3.0 L Chloride 109.4 H Carbon Dioxide 16 L BUN 124 H Creatinine 5.6 H Glucose 162 H POC Glucose 180 H 173 H Lactic Acid Calcium 7.5 L Phosphorus Magnesium Iron TIBC Ferritin AST ALT Total Creatine Kinase Total Protein Albumin Vitamin B12 Folate TSH Free T4 Urine WBC (Auto) Urine Creatinine Urine Chloride Urine Total Protein CSF VDRL Lymph Enumerat CD4/CD8 Absolute CD3 Count % CD4 Cells Absolute CD4 Count % CD8 Cells Absolute CD19 Count T.pallidum Ab (FTA-ABS) HIV-1 RNA PCR copies/ml HIV-1 RNA (PCR) log Miscellaneous Test Crossmatch 10/15/18 10/16/18 10/16/18 23:56 05:37 07:50 WBC 1.1 L* RBC 2.70 L Hgb 8.0 L Hct 24.4 L RDW 18.9 H Plt Count Seg Neuts % (Manual) Lymphocytes % (Manual) Monocytes % (Manual) 8.0 H Eosinophils % (Manual) Basophils % (Manual) Nucleated RBC % Seg Neutrophils # Man 0.7 L Abs Lymphs (Manual) Lymphocytes # (Manual) 0.2 L Basophils # (Manual) PT INR APTT Heparin Anti-Xa Level POC ABG pH POC ABG pCO2 POC ABG pO2 Sodium Potassium Chloride Carbon Dioxide BUN Creatinine Glucose POC Glucose 164 H 152 H Lactic Acid Calcium Phosphorus Magnesium Iron TIBC Ferritin AST ALT Total Creatine Kinase Total Protein Albumin Vitamin B12 Folate TSH Free T4 Urine WBC (Auto) Urine Creatinine Urine Chloride Urine Total Protein CSF VDRL Lymph Enumerat CD4/CD8 Absolute CD3 Count % CD4 Cells Absolute CD4 Count % CD8 Cells Absolute CD19 Count T.pallidum Ab (FTA-ABS) HIV-1 RNA PCR copies/ml HIV-1 RNA (PCR) log Miscellaneous Test Crossmatch 10/16/18 10/16/18 10/16/18 07:50 12:35 18:00 WBC RBC Hgb Hct RDW Plt Count Seg Neuts % (Manual) Lymphocytes % (Manual) Monocytes % (Manual) Eosinophils % (Manual) Basophils % (Manual) Nucleated RBC % Seg Neutrophils # Man Abs Lymphs (Manual) Lymphocytes # (Manual) Basophils # (Manual) PT INR APTT Heparin Anti-Xa Level POC ABG pH POC ABG pCO2 POC ABG pO2 Sodium 147 H Potassium 3.0 L Chloride Carbon Dioxide 15 L BUN 143 H Creatinine 6.2 H Glucose 182 H POC Glucose 122 H 160 H Lactic Acid Calcium 8.1 L Phosphorus Magnesium Iron TIBC Ferritin AST ALT Total Creatine Kinase Total Protein Albumin Vitamin B12 Folate TSH Free T4 Urine WBC (Auto) Urine Creatinine Urine Chloride Urine Total Protein CSF VDRL Lymph Enumerat CD4/CD8 Absolute CD3 Count % CD4 Cells Absolute CD4 Count % CD8 Cells Absolute CD19 Count T.pallidum Ab (FTA-ABS) HIV-1 RNA PCR copies/ml HIV-1 RNA (PCR) log Miscellaneous Test Crossmatch 10/16/18 10/17/18 10/17/18 23:32 05:03 11:32 WBC RBC Hgb Hct RDW Plt Count Seg Neuts % (Manual) Lymphocytes % (Manual) Monocytes % (Manual) Eosinophils % (Manual) Basophils % (Manual) Nucleated RBC % Seg Neutrophils # Man Abs Lymphs (Manual) Lymphocytes # (Manual) Basophils # (Manual) PT INR APTT Heparin Anti-Xa Level POC ABG pH POC ABG pCO2 POC ABG pO2 Sodium Potassium Chloride Carbon Dioxide BUN Creatinine Glucose POC Glucose 131 H 112 H 149 H Lactic Acid Calcium Phosphorus Magnesium Iron TIBC Ferritin AST ALT Total Creatine Kinase Total Protein Albumin Vitamin B12 Folate TSH Free T4 Urine WBC (Auto) Urine Creatinine Urine Chloride Urine Total Protein CSF VDRL Lymph Enumerat CD4/CD8 Absolute CD3 Count % CD4 Cells Absolute CD4 Count % CD8 Cells Absolute CD19 Count T.pallidum Ab (FTA-ABS) HIV-1 RNA PCR copies/ml HIV-1 RNA (PCR) log Miscellaneous Test Crossmatch 10/19/18 10/19/18 10/19/18 04:00 06:15 14:54 WBC 0.7 L* 0.7 L* RBC 2.77 L 2.77 L Hgb 7.9 L 8.3 L Hct 24.7 L 24.6 L RDW 19.4 H 19.2 H Plt Count 112 L 105 L Seg Neuts % (Manual) Lymphocytes % (Manual) Monocytes % (Manual) 17.0 H 16.0 H Eosinophils % (Manual) 6.0 H Basophils % (Manual) 2.0 H Nucleated RBC % Seg Neutrophils # Man 0.3 L 0.3 L Abs Lymphs (Manual) Lymphocytes # (Manual) 0.2 L 0.2 L Basophils # (Manual) PT INR APTT Heparin Anti-Xa Level POC ABG pH POC ABG pCO2 POC ABG pO2 Sodium Potassium 2.9 L* Chloride Carbon Dioxide 19 L BUN 107 H Creatinine 5.9 H Glucose POC Glucose Lactic Acid Calcium 7.9 L Phosphorus Magnesium Iron TIBC Ferritin AST 54 H ALT Total Creatine Kinase Total Protein 5.7 L Albumin 2.5 L Vitamin B12 Folate TSH Free T4 Urine WBC (Auto) Urine Creatinine Urine Chloride Urine Total Protein CSF VDRL Lymph Enumerat CD4/CD8 Absolute CD3 Count % CD4 Cells Absolute CD4 Count % CD8 Cells Absolute CD19 Count T.pallidum Ab (FTA-ABS) HIV-1 RNA PCR copies/ml HIV-1 RNA (PCR) log Miscellaneous Test Crossmatch 10/20/18 10/20/18 10/21/18 05:34 12:17 06:00 WBC RBC Hgb Hct RDW Plt Count Seg Neuts % (Manual) Lymphocytes % (Manual) Monocytes % (Manual) Eosinophils % (Manual) Basophils % (Manual) Nucleated RBC % Seg Neutrophils # Man Abs Lymphs (Manual) Lymphocytes # (Manual) Basophils # (Manual) PT INR APTT Heparin Anti-Xa Level POC ABG pH POC ABG pCO2 33.3 L POC ABG pO2 107 H Sodium Potassium 3.0 L Chloride Carbon Dioxide 20 L BUN 94 H Creatinine 6.1 H Glucose POC Glucose 113 H Lactic Acid Calcium 7.9 L Phosphorus Magnesium Iron TIBC Ferritin AST ALT Total Creatine Kinase Total Protein Albumin Vitamin B12 Folate TSH Free T4 Urine WBC (Auto) Urine Creatinine Urine Chloride Urine Total Protein CSF VDRL Lymph Enumerat CD4/CD8 Absolute CD3 Count % CD4 Cells Absolute CD4 Count % CD8 Cells Absolute CD19 Count T.pallidum Ab (FTA-ABS) HIV-1 RNA PCR copies/ml HIV-1 RNA (PCR) log Miscellaneous Test Crossmatch 10/23/18 10/24/18 10/24/18 14:34 04:50 04:50 WBC 0.9 L* 0.9 L* RBC 2.33 L 2.24 L Hgb 7.1 L 6.8 L Hct 21.3 L 20.7 L RDW 20.1 H 20.1 H Plt Count Seg Neuts % (Manual) Lymphocytes % (Manual) Monocytes % (Manual) 18.0 H 16.0 H Eosinophils % (Manual) Basophils % (Manual) Nucleated RBC % Seg Neutrophils # Man 0.6 L 0.5 L Abs Lymphs (Manual) Lymphocytes # (Manual) 0.2 L 0.3 L Basophils # (Manual) PT INR APTT Heparin Anti-Xa Level POC ABG pH POC ABG pCO2 POC ABG pO2 Sodium Potassium 3.0 L Chloride Carbon Dioxide 19 L BUN 94 H Creatinine 7.3 H Glucose POC Glucose Lactic Acid Calcium 8.0 L Phosphorus Magnesium Iron TIBC Ferritin AST ALT Total Creatine Kinase Total Protein Albumin Vitamin B12 Folate TSH Free T4 Urine WBC (Auto) Urine Creatinine Urine Chloride Urine Total Protein CSF VDRL Lymph Enumerat CD4/CD8 Absolute CD3 Count % CD4 Cells Absolute CD4 Count % CD8 Cells Absolute CD19 Count T.pallidum Ab (FTA-ABS) HIV-1 RNA PCR copies/ml HIV-1 RNA (PCR) log Miscellaneous Test Crossmatch 10/24/18 10/25/18 10/25/18 11:15 05:20 09:25 WBC RBC Hgb Hct RDW Plt Count Seg Neuts % (Manual) Lymphocytes % (Manual) Monocytes % (Manual) Eosinophils % (Manual) Basophils % (Manual) Nucleated RBC % Seg Neutrophils # Man Abs Lymphs (Manual) Lymphocytes # (Manual) Basophils # (Manual) PT INR APTT Heparin Anti-Xa Level POC ABG pH POC ABG pCO2 POC ABG pO2 Sodium Potassium 3.0 L Chloride Carbon Dioxide 20 L BUN 69 H Creatinine 5.4 H Glucose POC Glucose Lactic Acid Calcium 7.9 L Phosphorus Magnesium Iron TIBC Ferritin AST ALT Total Creatine Kinase Total Protein Albumin Vitamin B12 Folate TSH Free T4 Urine WBC (Auto) Urine Creatinine Urine Chloride Urine Total Protein CSF VDRL Lymph Enumerat CD4/CD8 Absolute CD3 Count % CD4 Cells Absolute CD4 Count % CD8 Cells Absolute CD19 Count T.pallidum Ab (FTA-ABS) HIV-1 RNA PCR copies/ml HIV-1 RNA (PCR) log Miscellaneous Test Crossmatch See Detail See Detail 10/25/18 19:35 WBC 0.9 L* RBC 2.64 L Hgb 8.0 L Hct 24.2 L RDW 19.4 H Plt Count Seg Neuts % (Manual) Lymphocytes % (Manual) Monocytes % (Manual) Eosinophils % (Manual) Basophils % (Manual) Nucleated RBC % Seg Neutrophils # Man Abs Lymphs (Manual) Lymphocytes # (Manual) Basophils # (Manual) PT INR APTT Heparin Anti-Xa Level POC ABG pH POC ABG pCO2 POC ABG pO2 Sodium Potassium Chloride Carbon Dioxide BUN Creatinine Glucose POC Glucose Lactic Acid Calcium Phosphorus Magnesium Iron TIBC Ferritin AST ALT Total Creatine Kinase Total Protein Albumin Vitamin B12 Folate TSH Free T4 Urine WBC (Auto) Urine Creatinine Urine Chloride Urine Total Protein CSF VDRL Lymph Enumerat CD4/CD8 Absolute CD3 Count % CD4 Cells Absolute CD4 Count % CD8 Cells Absolute CD19 Count T.pallidum Ab (FTA-ABS) HIV-1 RNA PCR copies/ml HIV-1 RNA (PCR) log Miscellaneous Test Crossmatch Chest x-ray: pending Allied health notes reviewed: nursing
[2018-10-26 15:51] LABS: HIV-1 RNA QN PCR 1.55 Log cps/mL
[2018-10-26 18:11] VITALS: BP 128/70
[2018-10-26] MEDS: SODIUM CHLORIDE FLUSH SYRINGE 10 ML IV SCH (18:18)
[2018-10-27 12:35] LABS: CD4/CD8 Ratio 0.03 (0.86-5.00)
== END 2018-10-26 17:30 | DRG 4 ==
LOC: ED 17:40 → 3A 19:30 → CC1 09-20 19:25
PROVIDERS: ADMIT Internal Medicine; ATTEND Internal Medicine
PROC: 009U3ZX Drainage of Spinal Canal, Percutaneous Approach, Diagnostic (ICD-10-PCS; 2018-09-15)
PROC: B01B1ZZ Fluoroscopy of Spinal Cord using Low Osmolar Contrast (ICD-10-PCS; 2018-09-15)
PROC: 4A033R1 Measurement of Arterial Saturation, Peripheral, Percutaneous Approach (ICD-10-PCS; 2018-09-16)
PROC: 5A09457 Assistance with Respiratory Ventilation, 24-96 Consecutive Hours, Continuous Positive Airway Pressure (ICD-10-PCS; 2018-09-17)
PROC: 009U3ZX Drainage of Spinal Canal, Percutaneous Approach, Diagnostic (ICD-10-PCS; 2018-09-19)
PROC: B01B1ZZ Fluoroscopy of Spinal Cord using Low Osmolar Contrast (ICD-10-PCS; 2018-09-19)
PROC: 5A1955Z Respiratory Ventilation, Greater than 96 Consecutive Hours (ICD-10-PCS; principal; 2018-09-21)
PROC: 0BH17EZ Insertion of Endotracheal Airway into Trachea, Via Natural or Artificial Opening (ICD-10-PCS; 2018-09-21)
PROC: 02HV33Z Insertion of Infusion Device into Superior Vena Cava, Percutaneous Approach (ICD-10-PCS; 2018-09-21)
PROC: 009U3ZX Drainage of Spinal Canal, Percutaneous Approach, Diagnostic (ICD-10-PCS; 2018-10-10)
PROC: B01B1ZZ Fluoroscopy of Spinal Cord using Low Osmolar Contrast (ICD-10-PCS; 2018-10-10)
PROC: 5A1D70Z Performance of Urinary Filtration, Intermittent, Less than 6 Hours Per Day (ICD-10-PCS; 2018-10-16)
PROC: 06HM33Z Insertion of Infusion Device into Right Femoral Vein, Percutaneous Approach (ICD-10-PCS; 2018-10-16)
PROC: B54BZZA Ultrasonography of Right Lower Extremity Veins, Guidance (ICD-10-PCS; 2018-10-16)
PROC: 5A1D70Z Performance of Urinary Filtration, Intermittent, Less than 6 Hours Per Day (ICD-10-PCS; 2018-10-17)
PROC: 5A1D70Z Performance of Urinary Filtration, Intermittent, Less than 6 Hours Per Day (ICD-10-PCS; 2018-10-19)
PROC: 5A1D70Z Performance of Urinary Filtration, Intermittent, Less than 6 Hours Per Day (ICD-10-PCS; 2018-10-21)
PROC: 5A1D70Z Performance of Urinary Filtration, Intermittent, Less than 6 Hours Per Day (ICD-10-PCS; 2018-10-24)
PROC: 30233N1 Transfusion of Nonautologous Red Blood Cells into Peripheral Vein, Percutaneous Approach (ICD-10-PCS; 2018-10-24)
PROC: 0B113F4 Bypass Trachea to Cutaneous with Tracheostomy Device, Percutaneous Approach (ICD-10-PCS; 2018-10-25)
PROC: 0BJ08ZZ Inspection of Tracheobronchial Tree, Via Natural or Artificial Opening Endoscopic (ICD-10-PCS; 2018-10-25)
PROC: 0DH63UZ Insertion of Feeding Device into Stomach, Percutaneous Approach (ICD-10-PCS; 2018-10-25)
PROC: 5A1D70Z Performance of Urinary Filtration, Intermittent, Less than 6 Hours Per Day (ICD-10-PCS; 2018-10-26)
DX: B20 Human immunodeficiency virus [HIV] disease (principal); A41.9 Sepsis, unspecified organism; E43 Unspecified severe protein-calorie malnutrition; J18.9 Pneumonia, unspecified organism; G92 Toxic encephalopathy; R65.21 Severe sepsis with septic shock; J96.01 Acute respiratory failure with hypoxia; N17.0 Acute kidney failure with tubular necrosis; B37.0 Candidal stomatitis; F33.2 Major depressive disorder, recurrent severe without psychotic features; I48.92 Unspecified atrial flutter; E87.0 Hyperosmolality and hypernatremia; A07.1 Giardiasis [lambliasis]; K52.9 Noninfective gastroenteritis and colitis, unspecified; D70.9 Neutropenia, unspecified; D69.6 Thrombocytopenia, unspecified; E87.5 Hyperkalemia; I48.91 Unspecified atrial fibrillation; D64.9 Anemia, unspecified; B34.9 Viral infection, unspecified; J32.9 Chronic sinusitis, unspecified; L89.95 Pressure ulcer of unspecified site, unstageable; E86.0 Dehydration; H70.90 Unspecified mastoiditis, unspecified ear; Z68.32 Body mass index [BMI] 32.0-32.9, adult
CPT/HCPCS: 31720; 36415; 36430; 36600; 62270; 70450; 70551; 70553; 71045; 71260; 74018; 74177; 74182; 76705; 76770; 77003; 80048; 80053; 80074; 80076; 80202; 80307; 81001; 82024; 82140; 82436; 82550; 82553; 82570; 82607; 82728; 82747; 82803; 82947; 82962; 83550; 83735; 83880; 84100; 84132; 84156; 84160; 84300; 84439; 84443; 85007; 85014; 85018; 85025; 85027; 85049; 85520; 85610; 85730; 86021; 86022; 86160; 86403; 86592; 86593; 86689; 86777; 86780; 86850; 86900; 86901; 86920; 87040; 87045; 87070; 87102; 87103; 87177; 87205; 87220; 87324; 87400; 87497; 87498; 87536; 87799; 87806; 87901; 89051; 93005; 93010; 93306; 93970; 94002; 94003; 94640; 94660; 94667; 94668; 94669; 94760; 95819; 96365; 99406; G0378; 87502; A9577; J0153; J0282; J0330; J0456; J0610; J0690; J0692; J0696; J1160; J1447; J1450; J1570; J1644; J1650; J1940; J1953; J1956; J2250; J2405; J2540; J2543; J2597; J2704; J2765; J2930; J3010; J3370; J3475; J3480; J7030; J7040; J7050; J7060; J7070; P9016; Q9967